=== PATIENT | male | born 1955 | race Caucasian/White ===

== ENCOUNTER → 2019-12-05 15:22 | Outpatient (CLI) | payer MEDICARE, OTHER, SELFPAY ==
--- NOTE | ~2019-12-05 | CT_ITS ---
EXAMINATION: CT shoulder RT wo con DATE: 12/05/2019 15:42 INDICATION: Right shoulder pain. TECHNIQUE: Computed tomography (CT) of the right shoulder was performed without intravenous contrast. Automated exposure control and iterative reconstruction technique were employed. The dose-length pro duct was 326.77 mGy-cm. COMPARISON: None FINDINGS: There is mild emphysema. There is mild scarring at right lung apex. Bone alignment is sp l. No fracture. There is severe osteoarthritis of acromioclavicular joint and mild osteoarthritis of glenohumeral joint. There is mild fatty atrophy of subscapularis muscle belly. Partially visualized a re changes of anterior fusion procedure in cervical spine. IMPRESSION: 1. Polyarticular osteoarthritis. Reviewed, dictated and finalized at location A. ILE DYER
== END ==
PROVIDERS: PCP Emergency Medicine; Visit Provider Emergency Medicine
DX: M19.011 Primary osteoarthritis, right shoulder (principal)
CPT/HCPCS: 73200

== ENCOUNTER 2019-12-22 16:39 | Emergency (ER) | payer MEDICARE, OTHER, SELFPAY ==
[2019-12-22 16:51] VITALS: BP 155/79; PULSE 87; RESP 20; TEMP 37.1; O2SAT 99
--- NOTE | 2019-12-22 16:55 | ED.GENADULT ---
HPI - General Adult General Chief complaint: Upper Respiratory Infection Stated complaint: cough/eye/ear/runny nose Time Seen by Provider: 12/22/19 16:55 Source: patient Mode of arrival: ambulatory Limitations: no limitations History of Present Illness HPI narrative: 64-year-old male patient presents to the [facility] with complaints of cold symptoms. Patient states they have been on again off again for the last couple of weeks and started again yesterday with complaints of runny nose, sneezing and coughing. Patient states that his cough is really only in the morning when he wakes up. Patient denies any fevers, ear pain, sore throat, chest pain, shortness of breath. Patient states he has been taking [id number] Mucinex and cold and flu medication. Patient denies getting a flu shot this year. Patient states that he is an active smoker. Related Data Home Medications Medication Instructions Recorded Confirmed pravastatin 40 mg PO HS 09/18/19 12/22/19 aspirin [Adult Low Dose Aspirin] 81 mg DAILY 12/22/19 12/22/19 Allergies Allergy/AdvReac Type Severity Reaction Status Date / Time morphine AdvReac Severe Itching Verified 10/10/19 13:29 Review of Systems Review of Systems: Narrative: CONSTITUTIONAL: Denies fever, chills, or sweats. EYES: Denies visual changes, redness, or discharge. ENT: Positive clear rhinorrhea, congestion, denies sore throat, or otalgia. CARDIOVASCULAR: Denies chest pain, palpitations, or edema. RESPIRATORY: Positive nonproductive cough denies dyspnea. GASTROINTESTINAL: Denies abdominal pain, nausea, vomiting, or diarrhea. GENITOURINARY: Denies dysuria or hematuria. SKIN: Denies rash or itching. MUSCULOSKELETAL: Denies back pain, joint pain, or myalgia. NEUROLOGIC: Denies headache, numbness, or weakness. PSYCHIATRIC: Denies anxiety or depression. PENDING SALE TO [facility] Past Medical History Medical History Hyperlipidemia RANDY (obstructive sleep apnea) Smoker Tobacco abuse Surgical History Surgical History History of hernia repair [facility] Family History Family History Other Family history of cardiovascular disease Family history of kidney disease Family history of malignant neoplasm Hypertension Social History Social History Smoking status: Current every day smoker Alcohol intake: current Gender identity (if verbalized by the patient): Male Comments At the time of my signature I agree with nursing past medical history, surgical, social, and family history. There is no relevant family history pertinent to the presenting complaint. Exam Narrative: Exam Narrative: GENERAL: Well-appearing, well-nourished, and in no acute distress. HEAD: Normocephalic, atraumatic. No tenderness noted to frontal and maxillary sinuses on palpation. EYES: PERRLA and EOMI. ENT: Nares with erythema and edema noted bilaterally with the left nare swollen shut, no rhinorrhea or epistaxis. Mucous membranes moist. Posterior pharynx with some postnasal drip but no erythema, tonsil enlargement, exudates or lesions present. Bilateral TMs are clear no erythema or foreign bodies in the canal NECK: Supple. No lymphadenopathy CHEST: Clear to auscultation. No respiratory distress. HEART: Regular rate and rhythm. No murmur heard. Normal peripheral pulses. ABDOMEN: Soft, nontender, nondistended, normal active bowel sounds. EXTREMITIES: Normal range of motion. No edema. SKIN: Warm, dry, no rash. NEURO: No focal deficits. Alert and oriented x3. Course Vital Signs Vital signs: Vital Signs Temperature 37.1 C 12/22/19 16:51 Pulse Rate 87 12/22/19 16:51 Respiratory Rate 20 12/22/19 16:51 Blood Pressure 155/79 H 12/22/19 16:51 Pulse Oximetry 99 12/22/19 16:51 Temperature 37.1 C 12/22/19 16:51
== END 2019-12-22 17:04 | disposition home or self-care (01) ==
PROVIDERS: Emergency Provider Nurse Practitioner Family; PCP Emergency Medicine
DX: J06.9 Acute upper respiratory infection, unspecified (principal); J30.9 Allergic rhinitis, unspecified; F17.200 Nicotine dependence, unspecified, uncomplicated; E78.5 Hyperlipidemia, unspecified; G47.30 Sleep apnea, unspecified
CPT/HCPCS: 99213; G0463

== ENCOUNTER 2019-12-29 08:38 | Emergency (ER) | payer MEDICARE, OTHER, SELFPAY ==
[2019-12-29 08:58] VITALS: BP 158/79; PULSE 92; RESP 16; TEMP 36.3; O2SAT 100
[2019-12-29] MEDS: TETANUS,DIPHTHERIA,AC PERTUSSIS ADULT (0.5 ML) BOOSTRIX (09:26)
--- NOTE | 2019-12-29 09:34 | ED.UPPEXIN ---
HPI - Extremity Injury (Upper) General Chief Complaint: Extremity Injury, Upper <Nancy Whittaker PA-C - Last Filed: 12/29/19 10:02> Stated Complaint: Lac R thumb; on Monday <RADHA Elizabeth Last Filed: 12/29/19 10:02> Time Seen by Provider: 12/29/19 09:03 <RADHA Elizabeth Last Filed: 12/29/19 10:02> Source: patient <RADHA Elizabeth Last Filed: 12/29/19 10:02> Mode of arrival: ambulatory <RADHA Elizabeth Last Filed: 12/29/19 10:02> Limitations: no limitations <RADHA Elizabeth Last Filed: 12/29/19 10:02> History of Present Illness HPI narrative: This is a 64-year-old male that presents the emergency department for laceration sustained 2 days ago. Reports he cut his thumb on a corner cutter. Reports since he has been having trouble controlling the bleeding. Reports every time he takes off the bandage the bleeding starts again. He was unable to control bleeding this morning so he came to the ED. He is not up-to-date on tetanus. Denies fever, erythema, or abnormal drainage. <RADHA Elizabeth Last Filed: 12/29/19 10:02> Related Data Home Medications: Home Medications Medication Instructions Recorded Confirmed pravastatin 40 mg PO HS 09/18/19 12/22/19 aspirin [Adult Low Dose Aspirin] 81 mg DAILY 12/22/19 12/22/19 <RADHA Elizabeth Last Filed: 12/29/19 10:02> Allergies/Adverse Reactions: Allergies Allergy/AdvReac Type Severity Reaction Status Date / Time morphine AdvReac Severe Itching Verified 10/10/19 13:29 <RADHA Elizabeth Last Filed: 12/29/19 10:02> Review of Systems Review of Systems: Narrative: CONSTITUTIONAL: Denies fever SKIN: Reports laceration NEUROLOGIC: Denies numbness <RADHA Elizabeth Last Filed: 12/29/19 10:02> All systems reviewed & are unremarkable except as noted in HPI and below <Nancy Whittaker PA-C - Last Filed: 12/29/19 10:02> PMFSH Social History Social History: Social History Smoking status: Current every day smoker Alcohol intake: current Gender identity (if verbalized by the patient): Male <Nancy Whittaker PA-C - Last Filed: 12/29/19 10:02> Exam Narrative: Exam Narrative: GENERAL: Well-appearing, well-nourished, and in no acute distress. HEAD: Normocephalic, atraumatic. EYES: EOMI. EXTREMITIES: Normal range of motion. No edema, erythema or warmth. Right thumb tip with 1.5cm circular area of skin avulsed, no tissue to approximate, slowly oozing blood SKIN: Warm, dry, no rash. NEURO: No focal deficits. Alert and oriented x3. PSYCH: Normal mood and affect <RADHA Elizabeth Last Filed: 12/29/19 10:02> Course Vital Signs Vital signs: Vital Signs Temperature 97.3 F L 12/29/19 08:58 Pulse Rate 92 12/29/19 08:58 Respiratory Rate 16 12/29/19 08:58 Blood Pressure 158/79 H 12/29/19 08:58 Pulse Oximetry 100 12/29/19 08:58 Temperature 97.3 F L 12/29/19 08:58 Pulse Rate 82 12/29/19 10:05 Respiratory Rate 16 12/29/19 10:05 Blood Pressure 136/75 12/29/19 10:05 Pulse Oximetry 98 12/29/19 10:05 <RADHA Elizabeth Last Filed: 12/29/19 10:02> Vital Signs Temperature 97.3 F L 12/29/19 08:58 Pulse Rate 92 12/29/19 08:58 Respiratory Rate 16 12/29/19 08:58 Blood Pressure 158/79 H 12/29/19 08:58 Pulse Oximetry 100 12/29/19 08:58 Temperature 97.3 F L 12/29/19 08:58 Pulse Rate 82 12/29/19 10:05 Respiratory Rate 16 12/29/19 10:05 Blood Pressure 136/75 12/29/19 10:05 Pulse Oximetry 98 12/29/19 10:05 <Jaja Ding MD - Last Filed: 12/29/19 16:07> Procedures Laceration Laceration 1: Date: 12/29/19 <Nancy Whittaker PA-C - Last Filed: 12/29/19 10:02> Time: 09:57 <Nancy Whittaker PA-C - Last Filed: 12/29/19 10:02> Site: hand <Nancy Whittaker PA-C - Last File
[2019-12-29 10:05] VITALS: BP 136/75; PULSE 82; RESP 16; O2SAT 98
--- NOTE | 2020-01-02 07:59 | PC.NURSE ---
LATE ENTRY This note is being entered to document information to the patient's record. The following information was omitted on [12/29/2019, by [David Hernandez]. Per verbal order readback from EDP give 0.5ml of Boostrix Vaccine via IM to Pt.
== END 2019-12-29 10:05 | disposition home or self-care (01) ==
PROVIDERS: Emergency Provider General Practice; PCP Emergency Medicine
DX: S61.011A Laceration without foreign body of right thumb without damage to nail, initial encounter (principal); Z23 Encounter for immunization; Z79.82 Long term (current) use of aspirin; F17.290 Nicotine dependence, other tobacco product, uncomplicated; W27.4XXA Contact with kitchen utensil, initial encounter; Y93.G1 Activity, food preparation and clean up
CPT/HCPCS: 12001; 90471; 90715; 99283

== ENCOUNTER 2020-01-04 10:13 | Emergency (ER) | payer MEDICARE, OTHER, SELFPAY ==
--- NOTE | ~2020-01-04 | XR_ITS ---
EXAMINATION: XR finger 1st RT min 2V DATE: 01/04/2020 11:29 INDICATION: Right thumb laceration. TECHNIQUE: 3 views of right thumb were obtained. COMPARISON: None. FINDINGS: Bone alignment is normal. No fracture. There is mild osteoarthritis of first metacarpophala ngeal joint and moderate osteoarthritis of first interphalangeal joint. No radiopaque foreign body. T here is soft tissue swelling of the thumb. IMPRESSION: 1. Polyarticular osteoarthritis. Reviewed, dictated and finalized at location A. TYPE CUTTER
[2020-01-04 10:24] VITALS: BP 161/85; PULSE 82; RESP 20; TEMP 36.4; O2SAT 100
--- NOTE | 2020-01-04 10:51 | ED.WOUNDLAC ---
HPI - Wound/Laceration General Chief Complaint: Wound/Laceration Stated Complaint: right thumb Time Seen by Provider: 01/04/20 10:51 Source: patient Mode of arrival: ambulatory Limitations: no limitations History of Present Illness HPI narrative: Natan Patel is a 64 male with a hx of h cholesterol, cervical fusion, oartial knee replacements who comes to express care with an infected right thumb. Patient cut thumb a week ago with a mandolin and Surgicel was placed on the wound; patient states that he was not told to remove the Surgicel, from swollen and red. Has movement, denies pain Related Data Home Medications Medication Instructions Recorded Confirmed pravastatin 40 mg PO HS 09/18/19 12/22/19 aspirin [Adult Low Dose Aspirin] 81 mg DAILY 12/22/19 12/22/19 cholecalciferol (vitamin D3) 125 5,000 unit PO DAILY 12/31/19 mcg (5,000 unit) tablet mecobalamin (vitamin B12) 1,000 See Rx Instructions .ROUTE .COMPLEX 12/31/19 mcg chewable tablet vitamin E 400 01/04/20 Allergies Allergy/AdvReac Type Severity Reaction Status Date / Time morphine AdvReac Severe Itching Verified 10/10/19 13:29 Review of Systems Review of Systems: Narrative: CONSTITUTIONAL: Denies fever, chills, sweats. EYES: Denies visual changes, redness, discharge. ENT: Denies rhinorrhea, congestion, sore throat, otalgia. CARDIOVASCULAR: Denies chest pain, palpitations, edema. RESPIRATORY: Denies dyspnea, wheezing, cough GASTROINTESTINAL: Denies abdominal pain, nausea, vomiting, diarrhea. GENITOURINARY: Denies dysuria, hematuria, abnormal discharge SKIN: Denies rash or itching. Red swollen right thumb NEUROLOGIC: Denies numbness, or focal weakness. PSYCHIATRIC: Denies anxiety or depression. [facility] Past Medical History Medical History Hyperlipidemia RANDY (obstructive sleep apnea) Smoker Tobacco abuse Surgical History Surgical History History of hernia repair [facility] Family History Family History Other Family history of cardiovascular disease Family history of kidney disease Family history of malignant neoplasm Hypertension Social History Social History Smoking status: Current every day smoker Alcohol intake: current Gender identity (if verbalized by the patient): Male Comments At time of signature, I agree with nursing past medical, surgical, social and family history. There is no relevant family history pertinent to the presenting complaint. Exam Narrative: Exam Narrative: GENERAL: This is a well-nourished, well-developed patient, in no apparent distress. HEAD: normocephalic, atraumatic. EYES: Sclera clear/white. Vision is grossly intact. EARS: External ears normal, auditory canals clear and without drainage, TMs normal without perforation. Hearing grossly intact. NOSE: External nose normal with no obvious nasal discharge, nares without redness, no rhinorrhea. THROAT: Mucous membranes moist, posterior pharynx clear. NECK: Neck supple, non-tender without lymphadenopathy, masses or thyromegaly. CARDIOVASCULAR: Regular rate and rhythm without murmurs, gallops, or rubs. RESPIRATORY: Clear to auscultation. Breath sounds equal bilaterally. No wheezes, rales, or rhonchi. GASTROINTESTINAL: Abdomen soft, non-tender, nondistended. Bowel sounds are active. No hepato-splenomegaly, or palpable masses. No guarding. SKIN: warm, intact with no suspicious lesions or rash, good texture and turgor. Right thumb erythema, swelling, range of motion good, avulsion lateral side of skin, subQ tissue NEURO: awake, alert, and oriented to person, place and time. There were no obvious focal neurologic abnormalities. Steady gait EXTREMITIES: Normal range of motion. BACK: Nontender without deformity . Course Course Emergency Course:
== END 2020-01-04 12:29 | disposition home or self-care (01) ==
PROVIDERS: Emergency Provider Nurse Practitioner
DX: S61.011D Laceration without foreign body of right thumb without damage to nail, subsequent encounter (principal); W27.8XXD Contact with other nonpowered hand tool, subsequent encounter; E78.00 Pure hypercholesterolemia, unspecified; E78.5 Hyperlipidemia, unspecified; G47.33 Obstructive sleep apnea (adult) (pediatric); Z96.653 Presence of artificial knee joint, bilateral; F17.200 Nicotine dependence, unspecified, uncomplicated
CPT/HCPCS: 73140; 99213; G0463

== ENCOUNTER 2024-10-26 08:24 | Emergency (ER) | payer MEDICARE, SELFPAY ==
[2024-10-26 08:49] VITALS: BP 152/67; PULSE 85; RESP 18; TEMP 37.2; O2SAT 97
--- NOTE | 2024-10-26 09:25 | ED.URI ---
HPI - URI/Sore Throat General Chief Complaint: Upper Respiratory Infection Stated Complaint: cold Source: patient Mode of arrival: ambulatory Limitations: no limitations History of Present Illness HPI Narrative: 69-year-old male presents to [facility] complains of head congestion, intermittent diarrhea, dry cough and sinus pressure for the past 3-4 days. Patient reports that symptoms became worse yesterday. Patient has been taking [id number] Sudafed and Robitussin with little relief. Patient reports that his currently similar symptoms. Patient is a smoker. Patient denies recent travel. MD elicited complaint: cough and other (Head congestion) Onset (ago): day(s) (3-4) Severity: mild Able to tolerate fluids by mouth: Yes Context: sick contacts Treatments prior to arrival: cold medicine Related Data Home Medications ?Medication ?Instructions ?Recorded ?Confirmed ?Last Taken ?Type aspirin 81 mg tablet,delayed 81 mg DAILY 12/22/19 12/22/19 Unknown History release (Adult Low Dose Aspirin) cholecalciferol (vitamin D3) 125 5,000 unit PO DAILY 12/31/19 Unknown History mcg (5,000 unit) tablet mecobalamin (vitamin B12) 1,000 See Rx Instructions .Route .COMPLEX 12/31/19 Unknown History mcg chewable tablet vitamin E 400 01/04/20 Unknown History ascorbate calcium (vitamin C) 814 mg PO 10/26/24 Unknown History mg/gram oral powder (Vitamin C (ascorbate calcium)) atorvastatin 40 mg tablet mg 10/26/24 Unknown History cholecalciferol (vitamin D3) 50 50 mcg PO DAILY 10/26/24 10/26/24 Unknown History mcg (2,000 unit) capsule metoprolol succinate 25 mg mg PO 10/26/24 Unknown History tablet,extended release 24 hr tamsulosin 0.4 mg capsule mg PO 10/26/24 Unknown History zinc 15 mg tablet 15 mg PO DAILY 10/26/24 10/26/24 Unknown History Allergies Allergy/AdvReac Type Severity Reaction Status Date / Time morphine AdvReac Severe Itching Verified 10/26/24 08:59 Review of Systems Constitutional: Constitutional: Denies chills, Denies fatigue, Denies fever(s) and Denies weakness ENT: Denies vertigo, Denies dizziness, Denies epistaxis, Reports nasal congestion and Reports sore throat Respiratory: Respiratory: Reports cough, Denies dyspnea and Denies wheezing Gastrointestinal: Gastrointestinal: Denies diarrhea, Denies nausea and Denies vomiting Integumentary/Breasts: Skin/Breast: Denies erythema and Denies rash Neurologic: Denies headache(s) [facility] Past Medical History Medical History (Updated 10/26/24 @ 09:53 by Clarice Santiago APRN) Smoker Tobacco abuse Hyperlipidemia RANDY (obstructive sleep apnea) Surgical History Surgical History History of hernia repair [facility] Family History Family History Other Family history of cardiovascular disease Family history of kidney disease Family history of malignant neoplasm Hypertension Social History Social History Smoking status: Current every day smoker Alcohol intake: current Gender identity (if verbalized by the patient): Male Comments At time of signature, I agree with nursing past medical, surgical, social and family history. There is no relevant family history pertinent to the presenting complaint. Exam Const: General: healthy appearing and no acute distress Nutritional Appearance: well nourished Orientation/consciousness: patient oriented x3 Limitations: no limitations HENMT: Head: normal to inspection Ears: external ears normal, TM's normal bilaterally and EAC's normal Face/Nose/Sinus: Normal external nose present Mouth: Yes Normal oral and palatal mucosa present and Yes moist mucous membranes Throat: uvula midline Other: Moderate nasal congestion noted, moderate erythema noted to oropharynx Eyes: Conjunctivae: conjunctivae normal Direct Ophthalmoscopy: no photophobia Neck: Neck: normal visual inspection Resp: Effort & Inspection: normal respiratory effort Auscultation: clear to auscultation bilaterally, no crackles, no rales and no rhonchi Cardio: Rate: regular rate Rhythm: regular rhythm Heart sounds: no murmurs Skin: General skin exam: normal color Rashes: no rashes Neuro: General: patient oriented x3 Speech: normal speech Gait exam (Neuro): Normal gait present Extrem: General: normal to inspection Psych: Affect: normal affect Attitude: cooperative Course Course Level of Care: Express Care Visit Vital Signs Vital signs: Vital Signs Temperature 37.2 C 10/26/24 08:49 Pulse Rate 85 10/26/24 08:49 Respiratory Rate 18 10/26/24 08:49 Blood Pressure 152/67 H 10/26/24 08:49 Pulse Oximetry 97 10/26/24 08:49 Oxygen Delivery Room Air 10/26/24 08:49 Temperature 37.2 C 10/26/24 08:49 Pulse Rate 85 10/26/24 08:49 Respiratory Rate 18 10/26/24 08:49 Blood Pressure 152/67 H 10/26/24 08:49 Pulse Oximetry 97 10/26/24 08:49 Oxygen Delivery Room Air 10/26/24 08:49 MDM - URI/Sore Throat MDM Narrative Medical decision making narrative: Discussed positive COVID results with patient. Patient understands that he is to self quarantine for 5 days from onset of symptoms for CDC recommendations. Instructed patient to rest, increase fluids and alternate Motrin and Tylenol as needed. Educated patient proceed to emergency room if symptoms worsen Differential Diagnosis Differential diagnosis: Likely otitis media, bronchitis and pharyngitis Lab Data Labs: Lab Results 10/26/24 Range/Units 09:49 POC Influenza A Ag Negative (Negative) POC Influenza B Ag Negative (Negative) POC SARS CoV-2 Ag Positive (Negative) POC Grp A Strep Screen Negative (Negative) Critical Care Time Critical Care Time Critical Care Time: No Discharge Plan Discharge Clinical Impression: COVID-19 Patient Disposition: Home, Self-Care Condition: Stable Instructions: COVID-19 (Coronavirus Disease 2019) (ED) Additional Instructions: Rest Increase fluids Take Claritin daily Take benzonatate as needed for cough Follow-up with primary care provider if symptoms are improved It is recommended that you quarantine for 5 days from onset of symptoms Proceed to the emergency room if symptoms worsen Patient Language: Upper Sorbian Prescriptions: New loratadine [Claritin] 10 mg tablet 10 mg PO DAILY Qty: 30 0RF benzonatate 100 mg capsule 100 mg PO BID PRN (Reason: cough) Qty: 20 0RF No Action aspirin [Adult Low Dose Aspirin] 81 mg Tablet,Delayed Release (Dr/Ec) 81 mg DAILY fluticasone propionate [Flonase Allergy Relief] 50 mcg/actuation spray,suspension 1 spray NASAL BID Qty: 15.8 0RF Rx Instructions: administer into each nostril vitamin E 400 metoprolol succinate 25 mg tablet extended release 24 hr PO zinc 15 mg tablet 15 mg PO DAILY Vitamin C (ascorbate calcium) 814 mg/gram powder PO cholecalciferol (vitamin D3) 50 mcg (2,000 unit) capsule 50 mcg PO DAILY atorvastatin 40 mg tablet tamsulosin 0.4 mg capsule PO mecobalamin (vitamin B12) 1,000 mcg tablet,chewable See Rx Instructions .ROUTE .COMPLEX Rx Instructions: TK 1 T PO ONCE DAILY; cholecalciferol (vitamin D3) 125 mcg (5,000 unit) tablet 5,000 unit PO DAILY Follow-up/Referrals: Ilir Nelson [Other] Time of Disposition: 09:54
[2024-10-26 09:51] LABS: EDCOVIDSCREEN Positive (Negative); EDINFLUASCREEN Negative (Negative); EDINFLUBSCREEN Negative (Negative); EDSTREPNEGPOS1 Negative (Negative)
--- OUTSIDE RECORDS SUMMARY | 2024-11-02 07:27 | XMS_ITS | Encounter Summary ---
Author Organization [facility] Address [address] [place] [address] Care Team Providers Care First Crusher Name Role Phone Yosvany Gonsalez MD Primary Care Provider [phone] Reason for Visit * Reason Onset Date Comments Results 02/22/2019 Encounter Details Date Type Department Care Team (Late st Contact Info) Description 02/22/2019 Telephone [facility] - Family Medicine [address] [phone] Yosvany Gonsalez MD [address] [place] [phone] Results Social History Tobacco Use Types Packs/Day Years Used Date Smoking Tobacco: Former Cigarettes Q uit: 08/07/2018 Smokeless Tobacco: Never Alcohol Use Standard Drinks/Week Comments Yes 7 (1 standard drink = 0.6 oz pur e alcohol) weekly 7-8 Sex and Gender Information Value Date Recorded Sex Assigned at Not on file Gender Identity Not on file Sexual Orientation Not on file documented as of this encounter Functional Status Functional Status Response Date of Assess ment Is person deaf or have serious hearing difficult y? No 10/02/2018 Is person blind or have serious difficulty seein g? No 10/02/2018 Does person have serious dif ficulty walking/climbing stairs? No 10/02/2018 Does person have difficulty dressing/bathing? No 10/02/2018 Does person have difficulty doing errands alone? No 10/02/2018 Cognitive Status Response Date of Assessm ent Does person have difficulty concentrating/remembering/making decisions? No 10/02/2018 documented as of this encounter Miscellaneous Notes * Telephone Encounter - Cindy Mobley LPN - 02/26/2019 4:31 PM CDT Patient presented to office results reviewed * Telephone Encounter - Cindy Mobley LPN - 02/26/2019 9:11 AM CDT Attempted calling no answer, vm left asking for call back * Telephone Encounter - Yosvany Gonsalez MD - 02/22/2019 3:57 PM CDT B12 is running low, start OTC supplements, all other medications stay the same, will review more atnext appointment. * Telephone Encounter - Maria Fernanda Solis LPN - 02/22/2019 3:52 PM CDT Please advise of lab results * Telephone Encounter - Olga Lidia Giles - 02/22/2019 3:45 PM CDT Please call patient. Had his labs done on 02/15/19. He thought his appointment was on 02/22/19. His appointment is in May of 2019. He wants to go over his labs. documented in this encounter Plan of Treatment Not on file documented as of this encounter Visit Diagnoses Not on filedocumented in this encounter Care Teams First Crusher Relationship Specialty Start Date End Date Yosvany Gonsalez MD [address] [place] [phone] PCP - General Internal Medicine 04/08/13 09/03/19 documented as of this encounter
--- OUTSIDE RECORDS SUMMARY | 2024-11-02 07:27 | XMS_ITS | Clinical Summary ---
Author Organization [facility] Address [address] [place] [address] Care Team Providers Care [employer] Worker Name Role Phone Addison Joy MD Primary Care Provider [phone] [facility],non-owned Affiliates and Associated Physician Practices is amultiple site organization consisting of ambulatory clinics and hospital sitesin [place], [place], [place] and [place]. This disclosure is being madepursuant to the Care Everywhere program and may not contain all information available regarding this patient. Last updated 18.[facility] Allergies Active Allergy Reactions Criticality Noted Date Comments Morphine Itching 09/09/2016 Medications * Be aware that medications may not be up to date on this document. Alwaysverify current medications with the patient. Medication Sig Dispensed Refills Start Date End Date Status Cholecalciferol (VITAMIN D) 2000 UNITS CAPS capsule Take 2,000 Units by mouth once daily Active vitamin E (TOCOPHERYL) 400 UNIT tablet Take 400 Units by mouth once daily Active aspirin (ASPIRIN) 81 MG chew tablet Take 81 mg by mouth once daily Active [place]-3 Fatty Acids (FISH OIL) 1000 MG capsule Take by mouth once daily Active oxyCODONE-acetamin ophen (PERCOCET) 7.5-325 MG tablet Take 1-2 tablets by mouth every 4 hours as needed for Pain (for moderate to severe pain) 120 tablet 10/02/2018 Active Additional Information Patient not taking.Reported on 07/26/2019 pantoprazole EC (PROTONIX) 40 MG tablet Take 1 tablet by mouth once daily 90 tablet 3 10/04/2018 Active pravastatin (PRAVACHOL) 80 MG tablet Take 1 tablet by mouth at bedtime 90 tablet 3 11/09/2018 Active predniSONE (DELTASONE) 10 MG tablet Take 1 tablet by mouth as directed 4 tab day1, then3 tabs for 3 days, then 2 tabs for 3 days , then1 tab for 3 days 22 tablet 07/26/2019 Active benzonatate (TESSALON) 100 MG capsule Take 1 capsule by mouth 3 times daily as needed for Cough 30 capsule 07/26/2019 Active Active Problems Problem Noted Date Diagnosed Date Cervical stenosis of spinal canal 10/02/2018 H/O nicotine dependence 09/21/2018 Pre-operative clearance 08/29/2016 RANDY on CPAP 10/16/2015 Screen for colon cancer 12/05/2014 Annual physical exam 10/14/2013 Hyperlipidemia 04/15/2013 Special screening for malignant neoplasm of pros [place] 04/15/2013 High risk medications (not anticoagulants) long- term use 04/15/2013 Resolved Problems Problem Noted Date Diagnosed Date Resolved Date Acute tracheobronchitis 09/09/201605/07 Primary osteoarthritis of left knee 08/29/2016 06/03/2019 Chronic gastritis 12/07/2015 06/03/2019 Chronic cough 10/15/2014 06/03/2019 Tendonitis of shoulder, right 04/15/2013 06/03/2019 Immunizations Name Administration Dates Next Due FLU VACCINE TRI IIV3 SPLIT PF IM (FLUVIRIN) 11/2013 INFLUENZA VACCINE, QUADR. (F LUZONE; FLULAVAL; FLUARIX; AFLURIA QUADRIVALENT; 6MO+), 0.5 ML (IIV4) 10/03/2018,10/19/2016,10/16/2015 Pneumococcal Pcv13 Conj 10/20/2016,10/16/2016 Family History Medical History Relation Name Comments Cancer - Other Father throat cancer Heart Disease Father Hypertension Mother Relation Name Status Comments Father Mother Alive Social History Tobacco Use Types Packs/Day Years Used Date Smoking Tobacco: Every Day Cigarettes Last attempted to quit: 08/07/2018 Smokeless Tobacco: Never Tobacco Cessation:Counseling Given: Yes Alcohol Use Standard Drinks/Week Comments Yes 7 (1 standard drink = 0.6 oz pur e alcohol) weekly 7-8 Sex and Gender Information Value Date Recorded Sex Assigned at Not on file Gender Identity Not on file Sexual Orientation Not on file Last Filed Vital Signs Vital Sign Reading Time Taken Comments Blood Pressure 134/72 07/26/2019 4:27 PM CDT Pulse 84 07/26/2019 4:27 PM CDT Temperature 37.3 ??C (99.2 ??F) 07/26/2019 4:27 PM CD T Respiratory Rate 20 07/26/2019 4:27 PM CDT Oxygen Saturation 97% 07/26/2019 4:27 PM CDT Inhaled Oxygen Concentration - - Weight 73 kg (161 lb) 07/26/2019 4:27 PM CDT Height 170.2 cm (5' 7 ) 06/03/2019 4:30 PM CDT Body Mass Index 25.22 06/03/2019 4:30 PM CDT Plan of Treatment Health Maintenance Due Date Last Done Comments COLOGUARD (AGES 45-75) - COLON CA SCREENING [address] COLONOGRAPHY - COLON CA SCREENING 1955 FIT - COLON CA SCREENING 1955 FLEX SIG - COLON CA SCREENING 1955 HEPATITIS C SCREENING 07/13/1972 DTAP/TDAP/TD VACCINES (1 - Tdap) 1973 ZOSTER VACCINE (1 of 2) 2004 PNEUMOCOCCAL VACCINE 65+ (2 of 2 - PPSV23 or PCV20) 12/15/2016 10/20/2016, 10/16/2016 AAA SCREENING 2019 SCREENING FOR DIABETES 02/15/2022 9, 02/15/2019, 11/27/2018, Additional history exists DEPRESSION SCREENING 11/06/2023 COVID-19 VACCINE ( season) 2024 INFLUENZA VACCINE (#1) 2024 8, 10/19/2016, 10/16/2015, Additional history exists COLONOSCOPY - COLON CA SCREENING 02/04/2025 02/04/2015 Colorectal Cancer Screening 02/04/2025 Respiratory Syncytial Virus (RSV) Vaccine Pt: or over 60 yrs (1 - 1-dose 75+ series) 2029 HEPATITIS B VACCINE Aged Out No longe r eligible based on patient's age to complete this topic HIB VACCINE Aged Out No longer eligi ble based on patient's age to complete this topic HPV VACCINE Aged Out No longer eligi ble based on patient's age to complete this topic MENINGOCOCCAL VACCINE Aged Out No mary pepito eligible based on patient's age to complete this topic Medical Devices Implanted Type Area Global Regulatory Lead Device Identifier Shelf Expiration Date Model / Serial / Lot Lukas Bone Void .5ml Dbx Algrf Frzdr Ptty - [id number] Implanted:Qty : 1 on 10/02/2018 by Chris Kay MD at [facility] Cervical Musculoskeletal Transplant Foundati 05/25/2020 [id number] / [id number] / Spcr Algrf [id number] Ccs Prll Spne Ayo - [id number] Implanted:Qty : 1 on 10/02/2018 by Chris Kay MD at [facility] Cervical Musculoskeletal Transplant Foundati 06/14/2021 [id number] / [id number] / Description:C6-C7 Graft Bone Vivigen Ayo Cnc Dmnr 1cc - [id number] Implanted:Qty : 1 on 10/02/2018 by Chris Kay MD at [facility] Cervical Lifenet 08/07/2019 BL-[id number] 01 / [id number] / Plate Bnt Grv Prebnt [id number] 1 Lvl 1 - [id number] Implanted:Qty : 1 on 10/02/2018 by Chris Kay MD at [facility] Cervical Synthes Spine 450.552 / [id number] / Description:C6-7 Screw 4.5mm 18mm Spne Crv Ant Slf-Tap Implanted:Qty : 4 on 10/02/2018 by Chris Kay MD at [facility] Cervical Synthes Spine [id number] / / Description:C6-7 Spcr Algrf [id number] Prll Spne Crv Ayo - [id number] Implanted:Qty : 1 on 10/02/2018 by Chris Kay MD at [facility] Cervical Musculoskeletal Transplant Foundati 02/07/2021 [id number] / [id number] / Screw 4.5mm 16mm Spne Crv Ant Slf-Tap Implanted:Qty : 4 on 10/02/2018 by Chris Kay MD at [facility] Cervical Synthes Spine 6 / / Description:C3-4 Vectra Plate Implanted:Qty : 1 on 10/02/2018 by Chris Kay MD at [facility] Chris Spine Cervical 4 / [id number] / Procedures Procedure Name Priority Date/Time Associated Diagnosis Comments COMPREHENSIVE METABOLIC PANEL 02/15/2019 7:51 AM CDT from Last 3 Months or Most Recently Relevant to Health Maintenance Results * COMPREHENSIVE METABOLIC PANEL (02/15/2019 7:51 AM CDT) Glucose 95 65 - 99 mg/dL [facility] Comment: ? Fasting reference interval BUN 14 7 - 25 mg/dL [facility] Creatinine 0.74 0.70 - 1.25 mg/dL [facility] Comment: For patients >49 years of age, the reference limit for Creatinine is approximately 13% higher for people identified as -Tajik. eGFR by MDRD 97 > OR = 60 mL/min/1 .73m2 [facility] eGFR by MDRD 113 > OR = 60 mL/min/1 .73m2 [facility] BUN/Creatinine Ratio NOT APPLICABLE 6 - 22 (calc) [facility] Sodium 142 135 - 146 mmol/L [facility] Potassium 5.0 3.5 - 5.3 mmol/L [facility] Chloride 107 98 - 110 mmol/L [facility] CO2 29 20 - 32 mmol/L [facility] Calcium 9.4 8.6 - 10.3 mg/dL [facility] Protein Total 7.1 6.1 - 8.1 g/dL [facility] Albumin 4.5 3.6 - 5.1 g/dL [facility] Globulin Total 2.6 1.9 - 3.7 g/dL (calc) [facility] Albumin/Globulin Ratio 1.7 1.0 - 2.5 (calc) [facility] Bilirubin Total 0.7 0.2 - 1.2 mg/dL [facility] Alkaline Phosphatase 41 40 - 115 U/L [facility] AST 15 10 - 35 U/L [facility] ALT 13 9 - 46 U/L [facility] Comment: Test Performed at: [facility] [id number] ??[id number] MICHEL LEO DO,MPH 02/15/2019 7:51 AM CDT 02/15/2019 7:52 AM CDT Yosvany Gonsalez MD LAB - CHEMISTRY [facility] [address] [place] [address] from Last 3 Months or Most Recently Relevant to Health Maintenance Advance Directives * Full Code (Latest Code Status on File) Date Activated Date Inactivated Comments 10/02/2018 7:29 PM 10/03/2018 4:57 PM Care Teams [employer] Worker Relationship Specialty Start Date End Date Addison Joy MD [address] [id number] PCP - General Internal Medicine 09/04/19
--- OUTSIDE RECORDS SUMMARY | 2024-11-02 07:27 | XMS_ITS | Encounter Summary ---
Author Organization [facility] Address [address] [place] [address] Care Team Providers Care Fuel Storage Technician Name Role Phone Yosvany Gonsalez MD Primary Care Provider [phone] Reason for Visit * Reason Comments Comprehensive Chronic Disease Evaluation Medication Check Hyperlipidemia lab results Encounter Details Date Type Department Care Team (Late st Contact Info) Description 12/03/2018 4:15 PM TIMING INSPECTOR Office Visit [facility] Medical [facility] - Family Medicine [address], [facility] [place] [address] Yosvany Gonsalez MD [address] [place] [address] [place] [address] Annual physical exam (Primary Dx); Mixed hyperlipidemia; Special screening for malignant neoplasm of prostate; RANDY on CPAP; H/O nicotine dependence Social History Tobacco Use Types Packs/Day Years Used Date Smoking Tobacco: Former Cigarettes Q uit: 08/07/2018 Smokeless Tobacco: Never Tobacco Cessation:Counseling Given: Yes Alcohol Use Standard Drinks/Week Comments Yes 7 (1 standard drink = 0.6 oz pur e alcohol) weekly 7-8 Sex and Gender Information Value Date Recorded Sex Assigned at Not on file Gender Identity Not on file Sexual Orientation Not on file documented as of this encounter Last Filed Vital Signs Vital Sign Reading Time Taken Comments Blood Pressure 132/76 12/03/2018 4:29 PM TIMING INSPECTOR Pulse 91 12/03/2018 4:29 PM TIMING INSPECTOR Temperature 36.7 ??C (98 ??F) 12/03/2018 4:29 PM TIMING INSPECTOR Respiratory Rate 16 12/03/2018 4:29 PM TIMING INSPECTOR Oxygen Saturation 95% 12/03/2018 4:29 PM TIMING INSPECTOR Inhaled Oxygen Concentration - - Weight 76.7 kg (169 lb) 12/03/2018 4:29 PM TIMING INSPECTOR Height 170.2 cm (5' 7 ) 12/03/2018 4:29 PM TIMING INSPECTOR Body Mass Index 26.47 12/03/2018 4:29 PM TIMING INSPECTOR documented in this encounter Functional Status Functional Status Response [...] No 10/02/2018 documented as of this encounter Progress Notes * Yosvany Gonsalez MD - 12/03/2018 6:06 PM CST Date: 12/03/2018 Pt Name: Natan Patel : 1955 AGE: 63 y.o. SEX: male SUBJECTIVE: Chief Complaint Patient presents with ??? Comprehensive Chronic Disease Evaluation ??? Medication Check ??? Hyperlipidemia lab results History of Present Illness: Patient is here for his annual physical exam Hyperlipidemia watching diet currently on pravastatin good compliance with no complaints. Acid reflux on pantoprazole watching lifestyle no recent flare-ups. Chronic DJD on Percocet as needed pain control adequate home [id number] exercises helping. Heart rate and blood pressure stable no chest pain chest tightness, no palpitations or dizziness reported. NO SIGNIFICANT CHANGE IN WEIGHT, NO RECENT ISSUES WITH FEVER, CHILLS. ALL MEDICATIONS WITH INSTRUCTIONS REVIEWED AT TODAY'S VISIT Current Outpatient Prescriptions Medication Sig Dispense Refill ??? aspirin (ASPIRIN) 81 MG chew tablet Take 81 mg by mouth once daily ??? Cholecalciferol (VITAMIN D) 2000 UNITS CAPS capsule Take 2,000 Units by mouth once daily ??? [place]-3 Fatty Acids (FISH OIL) 1000 MG capsule Take by mouth once daily ??? oxyCODONE-acetaminophen (PERCOCET) 7.5-325 MG tablet Take 1-2 tablets by mouth every 4 hours asneeded for Pain (for moderate to severe pain) (Patient not taking: Reported on 12/03/2018) 120 tablet 0 ??? pantoprazole EC (PROTONIX) 40 MG tablet Take 1 tablet by mouth once daily 90 tablet 3 ??? pravastatin (PRAVACHOL) 80 MG tablet Take 1 tablet by mouth at bedtime 90 tablet 3 ??? vitamin E (TOCOPHERYL) 400 UNIT tablet Take 400 Units by mouth once daily No current facility-administered medications for this visit. PATIENT'S ALLERGY, PM,FSH REVIEWED AND EXTRAPOLATED FROM EPIC Allergies Allergen Reactions ??? Morphine Itching Past Medical History: Diagnosis Date ??? Allergy ??? Chronic airway obstruction ??? Encounter for screening for malignant neoplasm of prostate ??? Esophageal reflux ??? Sleep apnea cpap Past Surgical History: Procedure Laterality Date ??? Cervical Fusion 10/02/2018 DISCECTOMY WITH FUSION ANTERIOR CERVICAL (ACDF) MULTI-LEVEL C3-4, C6-7 ??? COLONOSCOPY 02/04/15 3 polyps removed ??? HERNIA REPAIR, INGUINAL 02/2012 left ??? Knee Replacement Bilateral ??? OTHER SURGERY dental extraction Social History Social History ??? Marital status: Spouse name: N/A ??? Number of children: 1 ??? Years of education: 12 Occupational History ??? [employer] Social History Main Topics ??? Smoking status: Former Smoker Packs/day: 0.50 Types: Cigarettes Quit date: 08/07/2018 ??? Smokeless tobacco: Never Used ??? Alcohol use 4.2 - 4.8 oz/week 7 - 8 Cans of beer per week Comment: weekly 7-8 ??? Drug use: No ??? Sexual activity: Not on file Other Topics Concern ??? Not on file Social History Narrative ROS: A comprehensive ROS done, only pertinent positives recorded. HEENT: none, minor sinus drainage, seasonal CV: no obvious problems, denies cp RS: breathing at baseline ABD: diet stable EXT: joint pains stable, denies leg swelling NEURO: no compliants : no complaints PSYCH: stable, more anxious than usual SKIN: Normal OBJECTIVE: WDWN, Alert, No Distress BP 132/76 (BP SITE: LEFT ARM, BP POSITION: SITTING, BP CUFF SIZE: 11) Pulse 91 Temp 98 ??F (36.7 ??C) (Oral) Resp 16 Ht 1.702 m (5' 7 ) Wt 76.7 kg (169 lb) SpO2 95% BMI 26.47 kg/m2 PHYSICAL EXAM: BP 132/76 (BP SITE: LEFT ARM, BP POSITION: SITTING, BP CUFF SIZE: 11) Pulse 91 Temp 98 ??F (36.7 ??C) (Oral) Resp 16 Ht 1.702 m (5' 7 ) Wt 76.7 kg (169 lb) SpO2 95% BMI 26.47 kg/m2 General appearance: alert, cooperative, no distress Head: Normocephalic, without trauma Eyes: sclera and conjunctiva clear, EOMI and PERRLA, lids normal Ears: hearing intact to voice Nose: nares open; no septal deviation is noted Throat: no mucous membrane abnormalities Neck: range of motion is intact, no masses, thyroid not enlarged, no adenopathy Nodes: no cervical, axillary or inguinal adenopathy Back: unchanged, no tenderness Chest: no tenderness Lungs: breath sounds normal and symmetric; no rales or wheezes Heart: regular rhythm, normal S1 and S2, without murmurs, gallops or rubs Abdomen: soft without mass, non-tender, No hepatosplenomegaly with normal bowel sounds Extremities: no clubbing, cyanosis or edema Circulation: Carotid and pedal pulses are intact and symmetrical, no carotid bruits Joints: chronic DJD, unchanged, ranges of motion preserved. No active inflammation, effusion noted. Skin: Warm, dry, good turgor. no rashes in visible areas. No other abnormalities are noted Neurologic: mental status normal; speech, language, affect at baseline. Alert and oriented X 3; Cranial nerves II - XII are grossly intact, motor , sensory, cerebellar exam at baseline, no apparent deficits Recent Results (from the past 1344 hour(s)) LIPID PROFILE Collection Time: 11/27/18 7:39 AM Result Value Ref Range Cholesterol 204 (H) <200 mg/dL HDL Cholesterol 56 >40 mg/dL Triglycerides 105 <150 mg/dL LDL Calculated 127 (H) mg/dL (calc) CHOL/HDLC RATIO 3.6 <5.0 (calc) Non HDL Cholesterol 148 (H) <130 mg/dL (calc) URIC ACID BLOOD Collection Time: 11/27/18 7:39 AM Result Value Ref Range Uric Acid 6.4 4.0 - 8.0 mg/dL TSH Collection Time: 11/27/18 7:39 AM Result Value Ref Range TSH 2.25 0.40 - 4.50 mIU/L COMPREHENSIVE METABOLIC PANEL Collection Time: 11/27/18 7:45 AM Result Value Ref Range Glucose 96 65 - 99 mg/dL BUN 17 7 - 25 mg/dL Creatinine 0.87 0.70 - 1.25 mg/dL eGFR by MDRD 91 > OR = 60 mL/min/1.73m2 eGFR by MDRD 106 > OR = 60 mL/min/1.73m2 BUN/Creatinine Ratio NOT APPLICABLE 6 (calc) Sodium 142 135 - 146 mmol/L Potassium 4.4 3.5 - 5.3 mmol/L Chloride 106 98 - 110 mmol/L CO2 29 20 - 32 mmol/L Calcium 9.3 8.6 - 10.3 mg/dL Protein Total 7.5 6.1 - 8.1 g/dL Albumin 4.6 3.6 - 5.1 g/dL Globulin Total 2.9 1.9 - 3.7 g/dL (calc) Albumin/Globulin Ratio 1.6 1.0 - 2.5 (calc) Bilirubin Total 0.7 0.2 - 1.2 mg/dL Alkaline Phosphatase 46 40 - 115 U/L AST 15 10 - 35 U/L ALT 17 9 - 46 U/L CBC WITH DIFFERENTIAL Collection Time: 11/27/18 7:45 AM Result Value Ref Range White Blood Cell Count 4.7 3.8 - 10.8 Thousand/uL RBC 4.48 4.20 - 5.80 Million/uL Hemoglobin 14.1 13.2 - 17.1 g/dL Hematocrit 41.3 38.5 - 50.0 % MCV 92.2 80.0 - 100.0 fL MCH 31.5 27.0 - 33.0 pg MCHC 34.1 32.0 - 36.0 g/dL RDW 12.6 11.0 - 15.0 % Platelet Count 265 140 - 400 Thousand/uL MPV 10.9 7.5 - 12.5 fL Neutrophil Absolute 2374 1500 - 7800 cells/uL Lymphocytes Absolute 1697 850 - 3900 cells/uL Absolute Monocytes 545 200 - 950 cells/uL Eosinophils Absolute 42 15 - 500 cells/uL Basophils Absolute 42 0 - 200 cells/uL Granulocytes % 50.5 % Lymphocytes % 36.1 % Monocytes % 11.6 % Eosinophils % 0.9 % Basophils % 0.9 % ASSESSMENT: ICD-10-CM 1. Annual physical exam Z00.00 CBC WITH DIFFERENTIAL COMPREHENSIVE METABOLIC PANEL LIPID PROFILE TSH HEMOGLOBIN A1C PROSTATE SPECIFIC ANTIGEN SCREEN URIC ACID BLOOD VITAMIN B12 2. Mixed hyperlipidemia E78.2 3. Special screening for malignant neoplasm of prostate Z12.5 4. RANDY on CPAP G47.33 Z99.89 5. H/O nicotine dependence Z87.891 PLAN: Orders Placed This Encounter ??? CBC WITH DIFFERENTIAL ??? COMPREHENSIVE METABOLIC PANEL ??? LIPID PROFILE ??? TSH ??? HEMOGLOBIN A1C ??? PROSTATE SPECIFIC ANTIGEN SCREEN ??? URIC ACID BLOOD ??? VITAMIN B12 Return in about 6 months (around 06/02/2019). RECENT COMPREHENSIVE SET OF LABS INCLUDING CBC, CMP, FBS ETC WERE ALL REVIEWED, DEVIATION FROM NORMAL NOTED, QUESTIONS, CONCERNS WERE ADDRESSED . USE OF CURRENT PRESCRIPTION MEDICATIONS, IT'S MANAGEMENT AND IMPACT ON PATIENT'S HEALTH DISCUSSED. Yosvany Gonsalez MD NG INSPECTOR documented in this encounter Plan of Treatment Scheduled Orders Name Type Priority Associated Diagnoses Orde r Schedule CBC WITH DIFFERENTIAL Lab Routine Annual physical exam Ordered: 12/03/2018 COMPREHENSIVE METABOLIC PANEL Lab Routine Annual physical exam Ordered: 12/03/2018 LIPID PROFILE Lab Routine Annual physical exam Ordered: 12/03/2018 TSH Lab Routine Annual physical exam Ordered: 12/03/2018 HEMOGLOBIN A1C Lab Routine Annual physical exam Ordered: 12/03/2018 PROSTATE SPECIFIC ANTIGEN SCREEN Lab Routine Annual physical exam Ordered: 12/03/2018 URIC ACID BLOOD Lab Routine Annual physical exam Ordered: 12/03/2018 documented as of this encounter Visit Diagnoses Diagnosis Annual physical exam- Primary Routine general medical examination at a health care facility Mixed hyperlipidemia Special screening for malignant neoplasm of prostate RANDY on CPAP Obstructive sleep apnea (adult) (pediatric) H/O nicotine dependence Personal history of tobacco use, presenting hazards to health documented in this encounter Care Teams Fuel Storage Technician Relationship Specialty Start Date End Date Yosvany Gonsalez MD [address] [id number] PCP - General Internal Medicine 04/08/13 09/03/19 documented as of this encounter
--- OUTSIDE RECORDS SUMMARY | 2024-11-02 07:27 | XMS_ITS | Encounter Summary ---
Author Organization [facility] Health Address [address] [place] [address] Care Team Providers Care Gas Substation Operator Name Role Phone Yosvany Gonsalez MD Primary Care Provider [phone] Encounter Details Date Type Department Care Team (Late st Contact Info) Description 02/15/2019 Orders Only [facility] - Family Medicine [address] [place] [phone] Yosvany Gonsalez MD [address] [place] [phone] Social History Tobacco Use Types Packs/Day Years [...] No 10/02/2018 documented as of this encounter Plan of Treatment Not on file documented as of this encounter Procedures Procedure Name Priority Date/Time Associated Diagnosis Comments URIC ACID BLOOD 02/15/2019 7:51 AM CDT HEMOGLOBIN A1C 02/15/2019 7:51 AM CDT CBC W AUTO DIFFERENTIAL 02/15/2019 7:51 AM CDT COMPREHENSIVE METABOLIC PANEL 02/15/2019 7:51 AM CDT PROSTATE SPECIFIC ANTIGEN SCREEN 02/15/2019 7:51 AM CDT VITAMIN B12 02/15/2019 7:51 AM CDT TSH 02/15/2019 7:51 AM CDT LIPID PROFILE 02/15/2019 7:51 AM CDT documented in this encounter Results * HEMOGLOBIN A1C (02/15/2019 7:51 AM CDT) Hemoglobin A1c 5.6 <5.7 % of total Hgb [facility] Comment: For the purpose of screening for the presence of diabetes: <5.7% ? Consistent with the absence of diabetes 5.7-6.4% ?Consistent with increased risk for diabetes ?(prediabetes) > or =6.5% ??Consistent with diabetes This assay result is consistent with a decreased risk of diabetes. Currently, no consensus exists regarding use of hemoglobin A1c for diagnosis of diabetes in children. According to [place] Diabetes Association (ADA) guidelines, hemoglobin A1c <7.0% represents optimal control in non- diabetic patients. Different metrics may apply to specific patient populations. Standards of Medical Care in Diabetes(ADA). ?? REPORT COMMENT: FASTING:YES Test Performed at: [facility] [address] [place], [place] ??[address] MICHEL LEO DO,MPH 02/15/2019 7:51 AM CDT 02/15/2019 7:52 AM CDT Yosvany Gonsalez MD LAB - CHEMISTRY ORDE RABLES Performing Organization Address [facility] de Phone Number [facility] [address] [place] [address] * PROSTATE SPECIFIC ANTIGEN SCREEN (02/15/2019 7:51 AM CDT) [facility] PSA 0.6 < OR = 4.0 ng/mL [facility] Comment: The total PSA value from this assay system is standardized against the WHO standard. The test result will be approximately 20% lower when compared to the equimolar-standardized total PSA (Sung Beckie). Comparison of serial PSA results should be interpreted with this fact in mind. This test was performed using the Siemens chemiluminescent method. Values obtained from different assay methods cannot be used interchangeably. PSA levels, regardless of value, should not be interpreted as absolute evidence of the presence or absence of disease. Test Performed at: [place] ??[address] MICHEL LEO DO,MPH 02/15/2019 7:51 AM CDT 02/15/2019 7:52 AM CDT Yosvany Gonsalez MD LAB - CHEMISTRY VIVIANA ADAMS Performing Organization Address [facility] de Phone Number [facility] [address] [place] [address] * VITAMIN B12 (02/15/2019 7:51 AM CDT) [facility] Vitamin B12 240 200 - 1100 pg/mL DENISE Comment: Please Note: Although the reference range for vitamin B12 is 200-1100 pg/mL, it has been reported that between 5 and 10% of patients with values between 200 and 400 pg/mL may experience neuropsychiatric and hematologic abnormalities due to occult B12 deficiency; less than 1% of patients with values above 400 pg/mL will have symptoms. Test Performed at: [facility] [place] [place], [place] ??[address] MICHEL LEO DO,MPH 02/15/2019 7:51 AM CDT 02/15/2019 7:52 AM CDT Yosvany Gonsalez MD LAB - CHEMISTRY VIVIANA ADAMS Performing Organization Address [facility]/ZIP Co de Phone Number [facility] [phone] [place] [address] * TSH (02/15/2019 7:51 AM CDT) Pathologist [facility] TSH 1.14 0.40 - 4.50 mIU/L [facility] Comment: Test Performed at: [facility] [address] [place], [place] ??[address] MICHEL LEO DO,MPH 02/15/2019 7:51 AM CDT 02/15/2019 7:52 AM CDT Yosvany Gonsalez MD LAB - CHEMISTRY VIVIANA ADAMS Performing Organization Address City/State/[facility] Co de Phone Number [facility] [address] [place] [address] * CBC WITH DIFFERENTIAL (02/15/2019 7:51 AM CDT) [facility] White Blood Cell Count 4.0 3.8 - 10.8 Thousand/u L [facility] RBC 4.63 4.20 - 5.80 Million/uL [facility] Hemoglobin 14.9 13.2 - 17.1 g/dL [facility] Hematocrit 43.4 38.5 - 50.0 % [facility] MCV 93.7 80.0 - 100.0 fL [facility] MCH 32.2 27.0 - 33.0 pg [facility] MCHC 34.3 32.0 - 36.0 g/dL [facility] RDW 13.0 11.0 - 15.0 % [facility] Platelet Count 247 140 - 400 Thousand/u L [facility] MPV 10.6 7.5 - 12.5 fL [facility] Neutrophil Absolute 1840 1500 - 7800 cells/uL [facility] Lymphocytes Absolute 1636 850 - 3900 cells/uL [facility] Absolute Monocytes 428 200 - 950 cells/uL [facility] Eosinophils Absolute 48 15 - 500 cells/uL [facility] Basophils Absolute 48 0 - 200 cells/uL [facility] Granulocytes % 46 % [facility] Lymphocytes % 40.9 % [facility] Monocytes % 10.7 % [facility] Eosinophils % 1.2 % [facility] Basophils % 1.2 % [facility] Comment: Test Performed at: [facility] [address] [place], [place] ??[phone] MICHEL LEO DO,MPH 02/15/2019 7:51 AM CDT 02/15/2019 7:52 AM CDT Yosvany Gonsalez MD LAB - HEMATOLOGY ORD JENNY Performing Organization Address [facility] Co de Phone Number [facility] [address] [place] [phone] * COMPREHENSIVE METABOLIC PANEL (02/15/2019 7:51 AM CDT) Pathologist [facility] Glucose 95 65 - 99 mg/dL [facility] Comment: ? Fasting reference interval BUN 14 7 - 25 mg/dL [facility] Creatinine 0.74 0.70 - 1.25 mg/dL [facility] Comment: For patients >49 years of age, the reference limit for Creatinine is approximately 13% higher for people identified as -[place]. eGFR by MDRD 97 > OR = [...] 46 U/L [facility] Comment: Test Performed at: [facility] ??[phone] MICHEL LEO DO,MPH 02/15/2019 7:51 AM CDT 02/15/2019 7:52 AM CDT Yosvany Gonsalez MD LAB - CHEMISTRY VIVIANA ADAMS Performing Organization Address City/[facility] Co de Phone Number [facility] [address] [place] [address] * URIC ACID BLOOD (02/15/2019 7:51 AM CDT) Uric Acid 6.3 4.0 - 8.0 mg/dL [facility] Comment: Therapeutic target for gout patients: <6.0 mg/dL ?? Test Performed at: [facility] [address] [place], [place] ??[phone] MICHEL LEO DO,MPH 02/15/2019 7:51 AM CDT 02/15/2019 7:52 AM CDT Yosvany Gonsalez MD LAB - CHEMISTRY VIVIANA ADAMS [facility] [address] [place] [address] * LIPID PROFILE (02/15/2019 7:51 AM CDT) Cholesterol 159 <200 mg/dL [facility] HDL Cholesterol 48 >40 mg/dL [facility] Triglycerides 93 <150 mg/dL [facility] LDL Calculated 92 mg/dL (calc) [facility] Comment: Reference range: <100 Desirable range <100 mg/dL for primary prevention; ?? <70 mg/dL for patients with CHD or diabetic patients with > or = 2 CHD risk factors. LDL-C is now calculated using the Armani-Goldstein calculation, which is a validated novel method providing better accuracy than the Friedewald equation in the estimation of LDL-C. Armani SS et al. RODOLFO. 2013;310(19): 8009-6801 (http://education.Packetworx.Virtru/faq/DFP402) CHOL/HDLC RATIO 3.3 <5.0 (calc) [facility] Non HDL Cholesterol 111 <130 mg/dL (calc) [facility] Comment: For patients with diabetes plus 1 major ASCVD risk factor, treating to a non-HDL-C goal of <100 mg/dL (LDL-C of <70 mg/dL) is considered a therapeutic option. Test Performed at: [facility] [address] [place], [place] ??[phone] MICHEL LEO DO,MPH 02/15/2019 7:51 AM CDT 02/15/2019 7:52 AM CDT Yosvany A Gonsalez MD LAB - CHEMISTRY VIVIANA ADAMS [facility] [address] [place] [address] documented in this encounter Visit Diagnoses Not on filedocumented in this encounter Care Teams Gas Substation Operator Relationship Specialty Start Date End Date Yosvany Gonsalez MD [address] [place] [address] [place] [address] PCP - General Internal Medicine 04/08/13 09/03/19 documented as of this encounter
--- OUTSIDE RECORDS SUMMARY | 2024-11-02 07:27 | XMS_ITS | Encounter Summary ---
Author Organization [facility] Address [address] [place] [address] Care Team Providers Care Sliver Lapper Name Role Phone Yosvany Gonsalez MD Primary Care Provider Reason for Visit * Reason Comments Chronic Condition(s) Follow-up Medication Management Hypertension Encounter Details Date Type Department Care Team (Latest Contact Info) Description 06/03/2019 4:30 PM CDT Office Visit [facility] - Family Medicine [address], [place] [phone] Yosvany Gonsalez MD [address] [place] [address] Annual physical exam (Primary Dx); RANDY on CPAP; H/O nicotine dependence; High risk medications (not anticoagulants) long-term use; Mixed hyperlipidemia Social History Tobacco Use Types Packs/Day Years [...] Sign Reading Time Taken Comments Blood Pressure 128/76 06/03/2019 4:30 PM CDT Pulse 79 06/03/2019 4:30 PM CDT Temperature - - Respiratory Rate - - Oxygen Saturation 95% 06/03/2019 4:30 PM CDT Inhaled Oxygen Concentration - - Weight 75.8 kg (167 lb) 06/03/2019 4:30 PM CDT Height 170.2 cm (5' 7 ) 06/03/2019 4:30 PM CDT Body Mass Index 26.16 06/03/2019 4:30 PM CDT documented in this encounter Functional Status Functional [...] Progress Notes * Yosvany Gonsalez MD - 06/03/2019 5:47 PM CDT Date: 06/03/2019 Pt Name: Natan Patel : 1955 AGE: [age] year old SEX: male SUBJECTIVE: Chief Complaint Patient presents with ??? Chronic Condition(s) Follow-up ??? Medication Management ??? Hypertension History of Present Illness: 63-year-old male here for his annual physical Hypertension heart rate and pressure stable at home no chest pain chest tightness, no palpitations or dizziness reported. Hyperlipidemia on statins, diet doing well with no complaints. Acid reflux on pantoprazole watching lifestyle no recent flare-ups. Severe DJD takes oxycodone occasionally seeing orthopedic service symptoms stable at this point risk of addiction reviewed. NO SIGNIFICANT CHANGE IN WEIGHT, NO RECENT ISSUES WITH FEVER, CHILLS. ALL MEDICATIONS WITH INSTRUCTIONS REVIEWED AT TODAY'S VISIT Current Outpatient Prescriptions Medication Sig Dispense Refill ??? aspirin (ASPIRIN) 81 MG chew tablet Take 81 mg by mouth once daily ??? Cholecalciferol (VITAMIN D) 2000 UNITS CAPS capsule Take 2,000 Units by mouth once daily ??? [place]-3 Fatty Acids (FISH OIL) 1000 MG capsule Take by mouth once daily ??? oxyCODONE-acetaminophen (PERCOCET) 7.5-325 MG tablet Take 1-2 tablets by mouth every 4 hours asneeded for Pain (for moderate to severe pain) 120 tablet 0 ??? pantoprazole EC (PROTONIX) [...] of education: 12 Occupational History ??? [employer] Social History Main Topics ??? Smoking status: [...] Normal OBJECTIVE: WDWN, Alert, No Distress BP 128/76 Pulse 79 Ht 1.702 m (5' 7 ) Wt 75.8 kg (167 lb) SpO2 95% BMI 26.16 kg/m2 PHYSICAL EXAM: BP 128/76 Pulse 79 Ht 1.702 m (5' 7 ) Wt 75.8 kg (167 lb) SpO2 95% BMI 26.16 kg/m2 General appearance: alert, cooperative, no distress [...] cerebellar exam at baseline, no apparent deficits No results found for this or any previous visit (from the past 1344 hour(s)). ASSESSMENT: ICD-10-CM 1. Annual physical exam Z00.00 CBC WITH DIFFERENTIAL COMPREHENSIVE METABOLIC PANEL LIPID PROFILE TSH HEMOGLOBIN A1C PROSTATE SPECIFIC ANTIGEN SCREEN URIC ACID BLOOD VITAMIN B12 2. RANDY on CPAP G47.33 Z99.89 3. H/O nicotine dependence Z87.891 4. High risk medications (not anticoagulants) long-term use Z79.899 5. Mixed hyperlipidemia E78.2 PLAN: Orders Placed This Encounter ??? CBC WITH DIFFERENTIAL ??? COMPREHENSIVE METABOLIC PANEL ??? LIPID PROFILE ??? TSH ??? HEMOGLOBIN A1C ??? PROSTATE SPECIFIC ANTIGEN SCREEN ??? URIC ACID BLOOD ??? VITAMIN B12 Return in about 6 months (around 12/04/2019). RECENT COMPREHENSIVE SET OF LABS INCLUDING CBC, CMP, FBS ETC WERE ALL REVIEWED, DEVIATION FROM NORMAL NOTED, QUESTIONS, CONCERNS WERE ADDRESSED . USE OF CURRENT PRESCRIPTION MEDICATIONS, IT'S MANAGEMENT AND IMPACT ON PATIENT'S HEALTH DISCUSSED. Yosvany Gonsalez MD documented in this encounter Plan of Treatment Scheduled Orders Name Type Priority Associated Diagnoses Orde r Schedule CBC WITH DIFFERENTIAL Lab Routine Annual physical exam Ordered: 06/03/2019 COMPREHENSIVE METABOLIC PANEL Lab Routine Annual physical exam Ordered: 06/03/2019 LIPID PROFILE Lab Routine Annual physical exam Ordered: 06/03/2019 TSH Lab Routine Annual physical exam Ordered: 06/03/2019 HEMOGLOBIN A1C Lab Routine Annual physical exam Ordered: 06/03/2019 PROSTATE SPECIFIC ANTIGEN SCREEN Lab Routine Annual physical exam Ordered: 06/03/2019 URIC ACID BLOOD Lab Routine Annual physical exam Ordered: 06/03/2019 documented as of this encounter Visit Diagnoses Diagnosis Annual physical exam- Primary Routine general medical examination at a health care facility RANDY on CPAP Obstructive sleep apnea (adult) (pediatric) H/O nicotine dependence Personal history of tobacco use, presenting hazards to health High risk medications (not anticoagulants) long-term use Encounter for long-term (current) use of other medications Mixed hyperlipidemia documented in this encounter Care Teams Sliver Lapper Relationship Specialty Start Date End Date Yosvany Gonsalez MD [address] [place] [phone] PCP - General Internal Medicine 04/08/13 09/03/19 documented as of this encounter
--- OUTSIDE RECORDS SUMMARY | 2024-11-02 07:27 | XMS_ITS | Patient Health Summary ---
Author Organization [facility] Address [address] [place] [address] Care Team Providers Care Assistant Tennis Professional Name Role Phone Addison Joy MD Primary Care Provider [phone] Note from [facility],non-owned Affiliates and Associated Physician Practices is amultiple site organization consisting of ambulatory clinics and hospital sitesin [place], [place]. This disclosure is being madepursuant to the Care Everywhere program and may not contain all information available regarding this patient. Last updated 18.[facility] Allergies * Morphine(Itching) Medications * Be aware that medications may not be up to date on this document. Alwaysverify current medications with the patient. * Cholecalciferol (VITAMIN D) 2000 UNITS CAPS capsule Take 2,000 Units by mouth once daily * vitamin E (TOCOPHERYL) 400 UNIT tablet Take 400 Units by mouth once daily * aspirin (ASPIRIN) 81 MG chew tablet Take 81 mg by mouth once daily * [place]-3 Fatty Acids (FISH OIL) 1000 MG capsule Take by mouth once daily * oxyCODONE-acetaminophen (PERCOCET) 7.5-325 MG tablet(Started 10/02/2018) Take 1-2 tablets by mouth every 4 hours as needed for Pain (for moderate to severe pain) * pantoprazole EC (PROTONIX) 40 MG tablet(Started 10/04/2018) Take 1 tablet by mouth once daily 3 refills remaining * pravastatin (PRAVACHOL) 80 MG tablet(Started 11/09/2018) Take 1 tablet by mouth at bedtime 3 refills remaining * predniSONE (DELTASONE) 10 MG tablet(Started 07/26/2019) Take 1 tablet by mouth as directed 4 tab day1, then3 tabs for 3 days, then 2 tabs for 3 days , then1 tab for 3 days * benzonatate (TESSALON) 100 MG capsule(Started 07/26/2019) Take 1 capsule by mouth 3 times daily as needed for Cough Active Problems Problem Noted Date Diagnosed Date [...] Tendonitis of shoulder, right 04/15/2013 06/03/2019 Immunizations * FLU VACCINE TRI IIV3 SPLIT PF IM (FLUVIRIN)(Given 10/06/2014) * INFLUENZA VACCINE, QUADR. (FLUZONE; FLULAVAL; FLUARIX; AFLURIA QUADRIVALENT; 6MO+), 0.5 ML (IIV4)(Given 10/03/2018, 10/19/2016, 10/16/2015) * Pneumococcal Pcv13 Conj(Given 10/20/2016, 10/16/2016) Social History Tobacco Use Types Packs/Day Years [...] Mass Index 25.22 06/03/2019 4:30 PM CDT Medical Devices Implanted Type Area Capacity Planning Engineer Device Identifier Shelf Expiration Date Model / Serial / Lot Lukas Bone Void .5ml Dbx Algrf Frzdr Ptty - [id number] Implanted:Qty : 1 on 10/02/2018 by Chris Kay MD at [facility] Cervical Musculoskeletal Transplant Foundati 05/25/2020 [id number] / [id number] / Spcr Algrf [id number] Ccs Prll Spne Ayo - [id number] Implanted:Qty : 1 on 10/02/2018 by Chris Kay MD at [facility] Cervical Musculoskeletal Transplant Foundati 06/14/2021 [id number] / [id number] / Description:C6-C7 Graft Bone Vivigen Ayo Cnc Dmnr 1cc - [id number] Implanted:Qty : 1 on 10/02/2018 by Chris Kay MD at [facility] Cervical Lifenet 08/07/2019 BL-[id number] 01 / [id number] / Plate Bnt Grv Prebnt [id number] 1 Lvl 1 - [id number] Implanted:Qty : 1 on 10/02/2018 by Chris Kay MD at [facility] Cervical Synthes Spine 450.552 / [id number] / Description:C6-7 Screw 4.5mm 18mm Spne Crv Ant Slf-Tap Implanted:Qty : 4 on 10/02/2018 by Chris Kay MD at [facility] Cervical Synthes Spine 04.613.66 8 / / Description:C6-7 Spcr Algrf [id number] Prll Spne Crv Ayo - [id number] Implanted:Qty : 1 on 10/02/2018 by Chris Kay MD at [facility] Cervical Musculoskeletal Transplant Foundati 02/07/2021 [id number] / [id number] / Screw 4.5mm 16mm Spne Crv Ant Slf-Tap Implanted:Qty : 4 on 10/02/2018 by Chris Kay MD at [facility] Cervical Synthes Spine 6 / / Description:C3-4 Vectra Plate Implanted:Qty : 1 on 10/02/2018 by Chris Kay MD at [facility] Cervical 4 / [id number] / Procedures * STREP A SCREEN - POINT OF CARE (AMB) SMGS(Performed 07/26/2019) Performed for Sore throat * HEMOGLOBIN A1C(Performed 02/15/2019) * PROSTATE SPECIFIC ANTIGEN SCREEN(Performed 02/15/2019) * VITAMIN B12(Performed 02/15/2019) * TSH(Performed 02/15/2019) * CBC W AUTO DIFFERENTIAL(Performed 02/15/2019) * COMPREHENSIVE METABOLIC PANEL(Performed 02/15/2019) * URIC ACID BLOOD(Performed 02/15/2019) * LIPID PROFILE(Performed 02/15/2019) * CBC W AUTO DIFFERENTIAL(Performed 11/27/2018) * COMPREHENSIVE METABOLIC PANEL(Performed 11/27/2018) * TSH(Performed 11/27/2018) * URIC ACID BLOOD(Performed 11/27/2018) * LIPID PROFILE(Performed 11/27/2018) * CARDIAC RHYTHM STRIP ORDER(Performed 10/04/2018) * PT EVAL AND TREAT(Performed 10/02/2018) * OT EVAL AND TREAT(Performed 10/02/2018) * XR CERVICAL SPINE 2 OR 3VW(Performed 10/02/2018) Performed for Herniated nucleus pulposus, C3-4 left, Osteoarthritis of cervical spine, unspecified spinal osteoarthritis complication status, Stenosis of cervical spine * GROSS + MICRO EXAM (ILL)(Performed 10/02/2018) Performed for Herniated nucleus pulposus, C3-4 left, Osteoarthritis of cervical spine, unspecified spinal osteoarthritis complication status, Stenosis of cervical spine * DISCECTOMY WITH FUSION ANTERIOR CERVICAL (ACDF) MULTI-LEVEL(Performed 10/02/2018) Performed for Herniated nucleus pulposus, C3-4 left, Osteoarthritis of cervical spine, unspecified spinal osteoarthritis complication status, Stenosis of cervical spine * BLOOD TYPE VERIFICATION(Performed 10/02/2018) * TYPE + SCREEN PANEL(Performed 09/25/2018) Performed for Herniated nucleus pulposus, C3-4 left, Cervical stenosis of spine * HGB HCT PANEL(Performed 09/25/2018) Performed for Herniated nucleus pulposus, C3-4 left, Cervical stenosis of spine, Chronic obstructive pulmonary disease, unspecified COPD type (HCC) * MRSA + SA DNA PCR PANEL(Performed 09/25/2018) Performed for Herniated nucleus pulposus, C3-4 left, Cervical stenosis of spine * EKG 12-LEAD(Performed 09/25/2018) Performed for Herniated nucleus pulposus, C3-4 left, Cervical stenosis of spine, Chronic obstructive pulmonary disease, unspecified COPD type (HCC) * NICOTINE + METABOLITES URINE(Performed 09/06/2018) Performed for H/O nicotine dependence * URIC ACID BLOOD(Performed 04/16/2018) Performed for Annual physical exam, High risk medications (not anticoagulants) long-term use, Special screening for malignant neoplasm of prostate, Mixed hyperlipidemia, Fatigue, unspecified type, Abnormal glucose * PROSTATE SPECIFIC ANTIGEN SCREEN(Performed 04/16/2018) Performed for Annual physical exam, High risk medications (not anticoagulants) long-term use, Special screening for malignant neoplasm of prostate, Mixed hyperlipidemia, Fatigue, unspecified type, Abnormal glucose * TSH(Performed 04/16/2018) Performed for Annual physical exam, High risk medications (not anticoagulants) long-term use, Special screening for malignant neoplasm of prostate, Mixed hyperlipidemia, Fatigue, unspecified type, Abnormal glucose * T4 FREE(Performed 04/16/2018) Performed for Annual physical exam, High risk medications (not anticoagulants) long-term use, Special screening for malignant neoplasm of prostate, Mixed hyperlipidemia, Fatigue, unspecified type, Abnormal glucose * LIPID PROFILE(Performed 04/16/2018) Performed for Annual physical exam, High risk medications (not anticoagulants) long-term use, Special screening for malignant neoplasm of prostate, Mixed hyperlipidemia, Fatigue, unspecified type, Abnormal glucose * HEMOGLOBIN A1C(Performed 04/16/2018) Performed for Annual physical exam, High risk medications (not anticoagulants) long-term use, Special screening for malignant neoplasm of prostate, Mixed hyperlipidemia, Fatigue, unspecified type, Abnormal glucose * COMPREHENSIVE METABOLIC PANEL(Performed 04/16/2018) Performed for Annual physical exam, High risk medications (not anticoagulants) long-term use, Special screening for malignant neoplasm of prostate, Mixed hyperlipidemia, Fatigue, unspecified type, Abnormal glucose * CBC W AUTO DIFFERENTIAL(Performed 04/16/2018) Performed for Annual physical exam, High risk medications (not anticoagulants) long-term use, Special screening for malignant neoplasm of prostate, Mixed hyperlipidemia, Fatigue, unspecified type, Abnormal glucose * INFLUENZA A+B - POINT OF CARE (AMB)(Performed 10/24/2017) Performed for Body aches * COMPREHENSIVE METABOLIC PANEL(Performed 04/19/2017) Performed for Mixed hyperlipidemia, Cigarette nicotine dependence without complication, Special screening for malignant neoplasm of prostate, High risk medications (not anticoagulants) long-term use,RANDY on CPAP * CBC W AUTO DIFFERENTIAL(Performed 04/19/2017) Performed for Mixed hyperlipidemia, Cigarette nicotine dependence without complication, Special screening for malignant neoplasm of prostate, High risk medications (not anticoagulants) long-term use,RANDY on CPAP * URIC ACID BLOOD(Performed 04/19/2017) Performed for Mixed hyperlipidemia, Cigarette nicotine dependence without complication, Special screening for malignant neoplasm of prostate, High risk medications (not anticoagulants) long-term use,RANDY on CPAP * T4 FREE(Performed 04/19/2017) Performed for Mixed hyperlipidemia, Cigarette nicotine dependence without complication, Special screening for malignant neoplasm of prostate, High risk medications (not anticoagulants) long-term use,RANDY on CPAP * TSH(Performed 04/19/2017) Performed for Mixed hyperlipidemia, Cigarette nicotine dependence without complication, Special screening for malignant neoplasm of prostate, High risk medications (not anticoagulants) long-term use,RANDY on CPAP * LIPID PROFILE(Performed 04/19/2017) Performed for Mixed hyperlipidemia, Cigarette nicotine dependence without complication, Special screening for malignant neoplasm of prostate, High risk medications (not anticoagulants) long-term use,RANDY on CPAP * HEMOGLOBIN A1C(Performed 04/19/2017) Performed for Mixed hyperlipidemia, Cigarette nicotine dependence without complication, Special screening for malignant neoplasm of prostate, High risk medications (not anticoagulants) long-term use,RANDY on CPAP * HEMOGLOBIN A1C(Performed 10/11/2016) * PROSTATE SPECIFIC ANTIGEN SCREEN(Performed 10/11/2016) * TSH(Performed 10/11/2016) * CBC W AUTO DIFFERENTIAL(Performed 10/11/2016) * COMPREHENSIVE METABOLIC PANEL(Performed 10/11/2016) * URIC ACID BLOOD(Performed 10/11/2016) * LIPID PROFILE(Performed 10/11/2016) * ECHOCARDIOGRAM STRESS(Performed 11/16/2015) Performed for Atypical chest pain * STRESS TEST TREADMILL (NO IMAGING)(Performed 11/16/2015) Performed for Atypical chest pain * HEMOGLOBIN A1C(Performed 10/02/2015) * PROSTATE SPECIFIC ANTIGEN SCREEN(Performed 10/02/2015) * TSH(Performed 10/02/2015) * CBC W AUTO DIFFERENTIAL(Performed 10/02/2015) * COMPREHENSIVE METABOLIC PANEL(Performed 10/02/2015) * URIC ACID BLOOD(Performed 10/02/2015) * LIPID PROFILE(Performed 10/02/2015) * GROSS + MICRO EXAM (ILL)(Performed 02/04/2015) Performed for Screen for colon cancer * XR CHEST 2VW(Performed 10/15/2014) Performed for Chronic cough * PROSTATE SPECIFIC ANTIGEN SCREEN(Performed 10/06/2014) Performed for Hyperlipidemia, Nicotine dependence, Special screening for malignant neoplasm of prostate, Annual physical exam * HEMOGLOBIN A1C(Performed 10/06/2014) Performed for Hyperlipidemia, Nicotine dependence, Special screening for malignant neoplasm of prostate, High risk medications (not anticoagulants) long- term use, Annual physical exam * TSH(Performed 10/06/2014) Performed for Hyperlipidemia, Nicotine dependence, Special screening for malignant neoplasm of prostate, High risk medications (not anticoagulants) long- term use, Annual physical exam * LIPID PROFILE(Performed 10/06/2014) Performed for Hyperlipidemia, Nicotine dependence, Special screening for malignant neoplasm of prostate, High risk medications (not anticoagulants) long- term use, Annual physical exam * COMPREHENSIVE METABOLIC PANEL(Performed 10/06/2014) Performed for Hyperlipidemia, Nicotine dependence, Special screening for malignant neoplasm of prostate, High risk medications (not anticoagulants) long- term use, Tendonitis of shoulder, right, Annual physical exam * CBC W AUTO DIFFERENTIAL(Performed 10/06/2014) Performed for Hyperlipidemia, Nicotine dependence, Special screening for malignant neoplasm of prostate, High risk medications (not anticoagulants) long- term use, Tendonitis of shoulder, right, Annual physical exam * HEMOGLOBIN A1C(Performed 10/01/2013) Performed for Hyperlipidemia, Nicotine dependence, Special screening for malignant neoplasm of prostate, High risk medications (not anticoagulants) long- term use, Tendonitis of shoulder, right * URIC ACID BLOOD(Performed 10/01/2013) Performed for Hyperlipidemia, Nicotine dependence, Special screening for malignant neoplasm of prostate, High risk medications (not anticoagulants) long- term use, Tendonitis of shoulder, right * TSH(Performed 10/01/2013) Performed for Hyperlipidemia, Nicotine dependence, Special screening for malignant neoplasm of prostate, High risk medications (not anticoagulants) long- term use, Tendonitis of shoulder, right * PROSTATE SPECIFIC ANTIGEN SCREEN(Performed 10/01/2013) Performed for Hyperlipidemia, Nicotine dependence, Special screening for malignant neoplasm of prostate, High risk medications (not anticoagulants) long- term use, Tendonitis of shoulder, right * LIPID PROFILE(Performed 10/01/2013) Performed for Hyperlipidemia, Nicotine dependence, Special screening for malignant neoplasm of prostate, High risk medications (not anticoagulants) long- term use, Tendonitis of shoulder, right * COMPREHENSIVE METABOLIC PANEL(Performed 10/01/2013) Performed for Hyperlipidemia, Nicotine dependence, Special screening for malignant neoplasm of prostate, High risk medications (not anticoagulants) long- term use, Tendonitis of shoulder, right * CBC W AUTO DIFFERENTIAL(Performed 10/01/2013) Performed for Hyperlipidemia, Nicotine dependence, Special screening for malignant neoplasm of prostate, High risk medications (not anticoagulants) long- term use, Tendonitis of shoulder, right * LIPID PROFILE W LDL/HDL RATIO(Performed 04/03/2013) * COMPREHENSIVE METABOLIC PANEL(Performed 04/03/2013) Results * STREP A SCREEN - POINT OF CARE (AMB) SMGS (07/26/2019 4:44 PM CDT) Pathologist [facility] Strep A Rapid POCT Negative Negative Strep A Rapid Screen Internal Control POCT Present Throat ENTIRE THROAT (SURFACE REGION OF NECK) / Unknown 07/26/2019 4:44 PM CDT Tiffanie Hernandez APRN-POST TENSIONING IRONWORKER LAB - POINT OF C ARE ORDERABLES * URIC ACID BLOOD (02/15/2019 7:51 AM CDT) Only the most recent of7 resultswithin the time period is included. Uric Acid 6.3 4.0 - 8.0 mg/dL [facility] Comment: Therapeutic target for gout patients: <6.0 mg/dL ?? Test Performed at: [email or web address] [address] [place], [place] ??[phone] MICHEL LEO DO,MPH 02/15/2019 7:51 AM CDT 02/15/2019 7:52 AM CDT Yosvany Gonsalez MD LAB - CHEMISTRY [facility] Performing Organization Address [facility] Co de Phone Number [facility] [address] [place] [address] * HEMOGLOBIN A1C (02/15/2019 7:51 AM CDT) Only the most recent of7 resultswithin the time period is included. Hemoglobin A1c 5.6 <5.7 % of total [...] diagnosis of diabetes in children. According to [place] Diabetes Association (ADA) guidelines, hemoglobin A1c <7.0% represents optimal control in non- diabetic patients. Different metrics may apply to specific patient populations. Standards of Medical Care in Diabetes(ADA). ?? REPORT COMMENT: FASTING:YES Test Performed at: [facility] [address] [place], [place] ??[phone] MICHEL LEO DO,MPH 02/15/2019 7:51 AM CDT 02/15/2019 7:52 AM CDT Yosvany Gonsalez MD LAB - CHEMISTRY [facility] Performing Organization Address City/[facility]/ZIP Co de Phone Number [facility] [address] [place] [address] * CBC WITH DIFFERENTIAL (02/15/2019 7:51 AM CDT) Only the most recent of8 resultswithin the time period is included. White Blood Cell Count 4.0 3.8 - [...] 1.2 % [facility] Comment: Test Performed at: [facility] [address] [place], [place] ??[phone] MICHEL LEO DO,MPH 02/15/2019 7:51 AM CDT 02/15/2019 7:52 AM CDT Yosvany Gonsalez MD LAB - HEMATOLOGY ORD ERABLES [facility] [address] [place] [address] * COMPREHENSIVE METABOLIC PANEL (02/15/2019 7:51 AM CDT) Only the most recent of9 resultswithin the time period is included. Pathologist [facility] Glucose 95 65 - 99 mg/dL [facility] Comment: ? Fasting reference interval BUN 14 7 - 25 mg/dL [facility] Creatinine 0.74 0.70 - 1.25 mg/dL [facility] Comment: For patients >49 years of age, the reference limit for Creatinine is approximately 13% higher for people identified as -Cub[place]. eGFR by MDRD 97 > OR = [...] 46 U/L [facility] Comment: Test Performed at: [email or web address] [address] [place] [address] ??[phone] MICHEL LEO DO,MPH 02/15/2019 7:51 AM CDT 02/15/2019 7:52 AM CDT Yosvany Gonsalez MD LAB - CHEMISTRY [facility] [address] [place] [address] * PROSTATE SPECIFIC ANTIGEN SCREEN (02/15/2019 7:51 AM CDT) Only the most recent of6 resultswithin the time period is included. PSA 0.6 < OR = 4.0 ng/mL [facility] Comment: The total PSA value from this assay system is standardized against the WHO standard. The test result will be approximately 20% lower when compared to the equimolar-standardized total PSA ([place]). Comparison of serial PSA results should be interpreted with this fact in mind. This test was performed using the Siemens chemiluminescent method. Values obtained from different assay methods cannot be used interchangeably. PSA levels, regardless of value, should not be interpreted as absolute evidence of the presence or absence of disease. Test Performed at: [facility] [address] [place], [place] ??[address] MICHEL LEO DO,MPH 02/15/2019 7:51 AM CDT 02/15/2019 7:52 AM CDT Yosvanygretchen Gonsalez MD LAB - CHEMISTRY [facility] Performing Organization Address [facility] Co de Phone Number [facility] [phone] [place] [address] * VITAMIN B12 (02/15/2019 7:51 AM CDT) [facility] Vitamin B12 240 200 - 1100 pg/mL [facility] Comment: Please Note: Although the reference range for vitamin B12 is 200-1100 pg/mL, it has been reported that between 5 and 10% of patients with values between 200 and 400 pg/mL may experience neuropsychiatric and hematologic abnormalities due to occult B12 deficiency; less than 1% of patients with values above 400 pg/mL will have symptoms. Test Performed at: [facility] [place], [place] ??[phone] MICHEL LEO DO,MPH 02/15/2019 7:51 AM CDT 02/15/2019 7:52 AM CDT Yosvanygretchen Gonsalez MD LAB - CHEMISTRY [facility] Performing Organization Address [facility] Co de Phone Number [facility] [phone] [place] [address] * TSH (02/15/2019 7:51 AM CDT) Only the most recent of8 resultswithin the time period is included. [facility] TSH 1.14 0.40 - 4.50 mIU/L [facility] Comment: Test Performed at: [place] ??[phone] MICHEL LEO DO,MPH 02/15/2019 7:51 AM CDT 02/15/2019 7:52 AM CDT Yosvanygretchen Gonsalez MD LAB - CHEMISTRY [facility] Performing Organization Address [facility] Co de Phone Number [facility] [phone] [place] [address] * LIPID PROFILE (02/15/2019 7:51 AM CDT) Only the most recent of8 resultswithin the time period is included. [facility] Cholesterol 159 <200 mg/dL [facility] HDL Cholesterol 48 >40 mg/dL [facility] Triglycerides 93 <150 mg/dL [facility] LDL Calculated 92 mg/dL (calc) [facility] Comment: Reference range: <100 Desirable range <100 mg/dL for primary prevention; ?? <70 mg/dL for patients with CHD or diabetic patients with > or = 2 CHD risk factors. LDL-C is now calculated using the Estela calculation, which is a validated novel method providing better accuracy than the Friedewald equation in the estimation of LDL-C. Armani SS et al. RODOLFO. 2013;310(88): 9279-2803 (http://education.kites.io/faq/LNC046) CHOL/HDLC RATIO 3.3 <5.0 (calc) [facility] Non HDL Cholesterol 111 <130 mg/dL (calc) [facility] Comment: For patients with diabetes plus 1 major ASCVD risk factor, treating to a non-HDL-C goal of <100 mg/dL (LDL-C of <70 mg/dL) is considered a therapeutic option. Test Performed at: [email or web address] [address] [place], [place] ??[phone] MICHEL LEO DO,MPH 02/15/2019 7:51 AM CDT 02/15/2019 7:52 AM CDT Yosvany Gonsalez MD LAB - CHEMISTRY [facility] Organization Address City/State/ZIP Co de Phone Number [facility] [address] [place] [address] * CARDIAC RHYTHM STRIP ORDER (10/04/2018 2:06 PM SCALE MODEL MAKER) Narrative 10/04/2018 2:06 PM SCALE MODEL MAKER Ordered by an unspecified provider. Scanned Document CARDIAC SERVICES ORD ERABLES * XR CERVICAL SPINE 2 OR 3 VW [id number] (10/02/2018 5:55 PM SCALE MODEL MAKER) Anatomical Region Laterality Modality Spine Radiographic Leola ging 10/02/2018 6:04 PM SCALE MODEL MAKER Impressions 10/02/2018 6:05 PM SCALE MODEL MAKER Anterior fusion hardware is in place at C6-C7 with intervertebral graft. Bones and hardware are in good alignment at conclusion of exam. Narrative 10/02/2018 6:05 PM SCALE MODEL MAKER PROCEDURE: XR CERVICAL SPINE 2 OR 3VW 10/02/2018 6:04 PM HISTORY: Other cervical disc displacement, high cervical region. COMPARISON: None Procedure Note Jay Buckner MD - 10/02/2018 PROCEDURE: XR CERVICAL SPINE 2 OR 3VW 10/02/2018 6:04 PM HISTORY: Other cervical disc displacement, high cervical region. COMPARISON: None IMPRESSION Anterior fusion hardware is in place at C6-C7 with intervertebral graft. Bones and hardware are in good alignment at conclusion of exam. Chris Kay MD DIAGNOSTIC IMAGING O RDERABLES * GROSS + MICRO EXAM (ILL) (10/02/2018 3:14 PM SCALE MODEL MAKER) Only the most recent of2 resultswithin the time period is included. Case Report Surgical Pathology Report ? Case: [id number] ? Authorizing Provider: ??Chris Kay MD ?Collected: ? 10/02/2018 03:14 PM ? Ordering Location: ? [facility] ? Received: ?10/03/2018 06:56 AM ? Pathologist: ? Julian Alexis MD ? Specimen: ?Disc Tissue, C3-4;C6-7 ? 10/05/2018 9:19 AM [facility] Final Diagnosis DISC FRAGMENTS, C3-4 AND C6-7, ANTERIOR CERVICAL DISCECTOMY WITH FUSION: - FRAGMENTS OF DEGENERATING FIBROCARTILAGINOUS DISC. - FRAGMENTS OF UNREMARKABLE BONE. - NEGATIVE FOR ACUTE INFLAMMATION AND NEOPLASM. ZOË/jzr 10/05/2018 9:19 AM [facility] Clinical History Herniated nucleus pulposus, C3-4 left; Osteoarthritis of cervical spine. 10/05/2018 9:19 AM [facility] Gross Description Specimen received in formalin labeled Mandie Cotter labeled as ? disc tissue C3-C4; C6-7? , consists of irregular fragments of warren-white to warren-brown soft tissue and cartilage tissue together aggregating 3 cm. There is no abnormal pigmentation. Specimen is submitted in one cassette after decalcification. ESTEBAN/jzr 10/05/2018 9:19 AM [facility] Microscopic Description Microscopic examination is performed and substantiates the above diagnosis. 10/05/2018 9:19 AM [facility] Performed By Performed by [facility] [place]. [address] 10/05/2018 9[facility] Embedded Images 10/05/2018 9:19 AM [facility] Pathology/Cytol ogy SPECIMEN FROM INTERVERTEBRAL DISC / Unknown 10/02/2018 3:14 PM SCALE MODEL MAKER 10/03/2018 6:56 AM SCALE MODEL MAKER Chris Kay MD LAB - PATHOLOGY/CYTO LOGY ORDERABLES Performing Organization Address City/State/[facility] Co de Phone Number [facility] [address] [place], [place] [address] * BLOOD TYPE VERIFICATION (10/02/2018 10:17 AM [facility]) ABO O 10/02/2018 11[facility]07 [facility] Rh Type Positive 10/02/2018 11:07 AM [facility] BLOOD B[facility] Blood Bank BLOOD SPECIMEN / Unknown Lab Venipuncture / Unknown 10/02/2018 10:17 AM [employer] 10/02/2018 10:38 AM [employer] Chris Kay MD LAB - BLOOD BANK ORD ERABLES Performing Organization Address [facility] Co de Phone Number [facility] [address] * MRSA + SA DNA PCR PANEL (09/25/2018 11:27 AM SC[employer]DEL [employer]) MRSA DNA by PCR Negative Negative 09/25/2018 12:47 PM [employer]DEL [employer]ER [facility] Staph aureus PCR Negative Negative 09/25/2018 12:47 PM [employer]DEL [employer]ER [facility] Microbiology SPECIMEN FROM NASAL FOSSAE / Unknown Collection / Unknown 09/25/2018 11:27 AM [employer]DEL [employer]ER 09/25/2018 11:34 AM [employer]DEL [employer]KER Narrative [facility] - 09/25/2018 12:47 PM [employer] Staphylococcus aureus (SA) target DNA not detected. A methicillin-resistant Staphylococcus aureus (MRSA) NEGATIVE; SA NEGATIVE test result does not preclude MRSA or SA nasal colonization. A false negative for MRSA (a result of MRSA NEGATIVE; SA POSITIVE instead of MRSA POSITIVE; SA POSITIVE) could be obtained if both MRSA and SA are present in the sample at an MRSA:SA ratio of 1 X 10 3 or greater. Chris Kay MD LAB - MICROBIOLOGY O RDERABLES Performing Organization Address [facility] de Phone Number [facility] [address] * TYPE + SCREEN PANEL (09/25/2018 11:27 AM SC[employer]DEL [employer]KER) ABO O 09/25/2018 12:47 PM [employer]DEL [employer] [facility] Rh Type Positive 09/25/2018 12:47 PM [employer]DEL [employer]ER [facility] Comment:History checked. Col lect retype. Antibody Screen Negative 09/25/2018 12:47 PM SC[employer]DEL [employer]ER [facility] Blood Bank BLOOD SPECIMEN / Unknown Venipuncture / Unknown 09/25/2018 11:27 AM [employer] 09/25/2018 11:34 AM [employer]DEL [employer]ER Ke Browne MD LAB - BLOOD BANK ORD ERABLES Performing Organization Address City/[facility] Co de Phone Number [facility] [address] * HGB HCT PANEL (09/25/2018 11:27 AM SC[employer]DEL [employer]KER) Hemoglobin 14.8 13.7 - 17.5 gm/dL 09/25/2018 11:39 AM [employer]DEL [employer] Hematocrit 43.6 40.1 - 51.0 % 09/25/2018 11:39 AM [employer]DEL [employer] [facility] Blood BLOOD SPECIMEN / Unknown Venipuncture / Unknown 09/25/2018 11:27 AM [employer]ER 09/25/2018 11:34 AM [employer]DEL [employer]ER Ke Browne MD LAB - HEMATOLOGY ORD ERABLES Performing Organization Address City/[facility]/ZIP Co de Phone Number [facility] [address] * EKG 12-LEAD (09/25/2018 11:22 AM SC[employer]DEL [employer]KER) Pathologist [facility] Ventricular Rate 60 BPM [facility] Atrial Rate 60 BPM [facility] P-R Interval 180 ms [facility] QRS Duration ms 86 ms [facility] Q-T Interval ms 412 ms [facility] QTC Calculation (Bezet) 412 ms [facility] Calculated P [place] 57 degrees [facility] Calculated R [place] 34 degrees [facility] Calculated T [place] 53 degrees [facility] Interpretation EKG Normal sinus rhythm Normal ECG When compared with ECG of 16-NOV-2015 07:47, changes in the configuration of Precordial leads is probably due to lead placement differences Confirmed by MD JOHN, [facility] ([id number]) on 09/26/2018 10:40:54 AM [facility] 09/25/2018 11:2 2 AM [employer]DEL [employer]ER 09/26/2018 10:40 AM [employer]DEL [employer]ER Ke Browne MD ECG ORDERABLES Performing Organization Address City/[facility]/ZIP Co de Phone Number [facility] * NICOTINE + METABOLITES URINE (09/06/2018 4:15 PM CDT) Nicotine Urine <2 ng/mL 09/10/2018 11:35 PM SC[employer]DEL [employer]ER [employer] ([facility]) Comment: Consistent with abstinence from nicotine-containing products for at least 2 weeks. INTERPRETIVE INFORMATION: Nicotine and Metabolites, ?Urine, Quantitative Methodology: Quantitative Liquid Chromatography-Tandem Mass Spectrometry Positive cutoff: Nicotine ??2 ng/mL Cotinine ??5 ng/mL 3-KA-Lxbdqnob 50 ng/mL Nornicotine ? 2 ng/mL Anabasine ? 3 ng/mL For medical purposes only; not valid for forensic use. This test is designed to evaluate recent use of nicotine-containing products. ??Passive and active exposure cannot be discriminated definitively, although a cutoff of 100 ng/mL cotinine is frequently used for surgery qualification purposes. ?? For smoking cessation programs or compliance testing, the absence of expected drug(s) and/or drug metabolite(s) may indicate non-compliance, inappropriate timing of specimen collection relative to drug administration, poor drug absorption, diluted/adulterated urine, or limitations of testing. The concentration value must be greater than or equal to the cutoff to be reported as positive. Anabasine is included as a biomarker of tobacco use, versus nicotine replacement. ??Interpretive questions should be directed to the laboratory. Test developed and characteristics determined by [facility]. See Compliance Statement B: First Opinion.[employer]/CS Performed by [facility], [address] [place] [id number] [email or web address], Thomas Resendiz MD, Lab. Director Nornicotine Urine <2 ng/mL 018 11:35 PM [facility] [employer] ([facility]) 3-Hydroxy Cotinine Urine <50 ng/mL 09/10/2018 11:35 PM [employer] ([facility]) Cotinine Urine <5 ng/mL 09/10/2018 11:35 PM [employer] ([facility]) Anabasine Urine <3 ng/mL 8 11:35 PM [facility] [employer] ([facility]) Urine URINE / Unknown Collection / Unknown 09/06/2018 4:15 PM CDT 09/06/2018 4:18 PM CDT Chris Kay MD LAB - URINE CHEMISTR Y ORDERABLES [facility] ([facility]) [address] [place] [address], [facility] * T4 FREE (04/16/2018 7:47 AM CDT) Only the most recent of2 resultswithin the time period is included. T4 Free 1.2 0.8 - 1.8 ng/dL [facility] Comment: Test Performed at: [email or web address] [address] ??[id number] MICHEL LEO DO,MPH Blood BLOOD SPECIMEN / Unknown 04/16/2018 7:47 AM CDT 04/16/2018 7:48 AM CDT Yosvany Gonsalez MD LAB - CHEMISTRY [facility] [address] [place] [address] * INFLUENZA A+B - POINT OF CARE (AMB) (10/24/2017 4:39 PM [employer]DEL [employer]KER) Pathologist [facility] Influenza A Antigen Rapid Negative Negative Influenza B Antigen Rapid Negative Negative Influenza Internal Control present NEGATIVE - POSITIVE Influenza Lot Number [id number] Influenza Expiration Date 05/2019 Other SPECIMEN FROM NASOPHARYNGEAL STRUCTURE / Unknown 10/24/2017 4:39 PM [employer]DEL [employer]ER Rahel Feliz PA-C LAB - POINT OF CARE ORDERABLES * ECHOCARDIOGRAM STRESS Walking Stress ECHO (11/16/2015 5:06 PM SC[employer]DEL [employer]KER) Narrative [facility] - 11/16/2015 5:06 PM SCALE MODEL [employer]KER [facility] [address] [place], [place] [id number] Exercise Stress Echocardiography Patient: MANDIE COTTER MR #: [id number] : 1955 Age: 60 years Gender: Male Study date: 16-Nov-2015 Status: Outpatient Room: - Ordering Physician: ??Yoly Trinidad DO, [facility] Referring Physician: ??Yosvany Gonsalez MD Missing Persons Investigator: ??Yoly Trinidad DO, MSEE Missing Persons Investigator: ??[facility] Department Manager: ??Obdulia Bowden [facility] Clinical question: Atypical Chest Pain Rest ECG: Normal baseline ECG. Procedure: Treadmill exercise testing was performed, using the Dimitris protocol. Stress and rest echocardiographic evaluation with 2D imaging was performed from multiple acoustic windows for evaluation of ventricular function. Dimitris protocol: HR bpm SBP mmHg DBP mmHg Symptoms ST change Rhythm/conduct Baseline 70 133 84 none none NSR, no ectopy Immediate 148 176 93 -- -- -- IV Definity was administered. Stress summary: Duration of exercise was 10 min and 30 sec. Functional capacity was normal. The heart rate response to stress was normal. There was normal resting blood pressure with an appropriate response to stress. There was no chest pain during stress. The stress test was terminated due to achievement of target heart rate. The stress ECG was normal. There were no stress arrhythmias or conduction abnormalities. Stress 2D echocardiographic results: Baseline: There were no regional wall motion abnormalities. Left ventricular size was normal. Overall left ventricular systolic function was normal. Estimated left ventricular ejection fraction was 50 % . Peak stress: There were no regional wall motion abnormalities. There was an appropriate reduction in left ventricular size. There was an appropriate augmentation in LV function. Summary: ?? - ??Stress results: Duration of exercise was 10 min and 30 sec. There was no chest pain during stress. - ??ECG conclusions: The stress ECG was normal. - ??Impressions and recommendations: No echocardiographic evidence for inducible myocardial ischemia. - ??Baseline: There were no regional wall motion abnormalities. Estimated left ventricular ejection fraction was 50 % . - ??Peak stress: There were no regional wall motion abnormalities. Impressions: No echocardiographic evidence for inducible myocardial ischemia. All images and data generated for this procedure were personally reviewed by me. Prepared and Electronically Authenticated Yoly Trinidad DO, MSEE 16-Nov-2015 17:09:40 Procedure Note Unknown, Provider - 11/16/2015 [facility] [address] [place] [address] Exercise Stress Echocardiography Patient: MANDIE COTTER MR #: [id number] : 1955 Age: 60 years Gender: Male Study date: 16-Nov-2015 Status: Outpatient Room: - Ordering Physician: Yoly Trinidad DO, MSEE Referring Physician: Yosvany Gonsalez MD Missing Persons Investigator: Yoly Trinidad DO, MSEE Missing Persons Investigator: Srinivasa [facility] Department Manager: Obdulia Bowden RDCS Clinical question: Atypical Chest Pain Rest ECG: Normal baseline ECG. Procedure: Treadmill exercise testing was performed, using the Bruceprotocol. Stress and rest echocardiographic evaluation with 2D imaging wasperformed from multiple acoustic windows for evaluation of ventricular function. Dimitris protocol: HR bpm SBP mmHg DBP mmHg Symptoms ST change Rhythm/conduct Baseline 70 133 84 none none NSR, no ectopy Immediate 148 176 93 -- -- -- IV Definity was administered. Stress summary: Duration of exercise was 10 min and 30 sec. Functional capacity was normal. The heart rate response to stress was normal. Therewas normal resting blood pressure with an appropriate response to stress.There was no chest pain during stress. The stress test was terminated due to achievement of target heart rate. The stress ECG was normal. There were no stress arrhythmias or conduction abnormalities. Stress 2D echocardiographic results: Baseline: There were no regional wall motion abnormalities. Leftventricular size was normal. Overall left ventricular systolic function was normal. Estimated left ventricular ejection fraction was 50 % . Peak stress: There were no regional wall motion abnormalities. There neal appropriate reduction in left ventricular size. There was an appropriate augmentation in LV function. Summary: - Stress results: Duration of exercise was 10 min and 30 sec. There was no chest pain during stress. - ECG conclusions: The stress ECG was normal. - Impressions and recommendations: No echocardiographic evidence for inducible myocardial ischemia. - Baseline: There were no regional wall motion abnormalities. Estimatedleft ventricular ejection fraction was 50 % . - Peak stress: There were no regional wall motion abnormalities. Impressions: No echocardiographic evidence for inducible myocardialischemia. All images and data generated for this procedure were personally reviewedby me. Prepared and Electronically Authenticated Yoly Trinidad DO, MSEE 16-Nov-2015 17:09:40 Yoly Trinidad DO ECHO ORDERABLES [facility] * ECG STRESS TRACING (11/16/2015 7:46 AM SCALE MODEL MAKER) [facility] Signature Stress Test Summary For full formatted report, please see the report link in the order. Acquisition Time: 2015-11-16 ??07:46:37 Total Exercise Time: 00:10:30 Test Indications: Chest pain Medications: Protocol: DIMITRIS ? Max HR: 148 BPM ??93% of ??Pred: 159 BPM Max BP: 176/093 mmHG Max Work Load: 13.4 METS Reason for Termination: Target Heart Rate Achieved Resting ECG: normal sinus rhythm Functional Capacity: Excellent HR Response to Exercise: appropriate BP Resoonse to Exercise: normal resting BP - appropriate response Chest Pain: none Arrhythmias: none ST Changes: none Overall Impression: Normal stress test Diagnosis: 1. Normal RAGHAV 2. Able to walk on treadmill for 10.5 mins, achieved 14 METS Confirmed by Yoly Trinidad ([id number]) on 11/16/2015 9:12:22 AM Attending Physician: KWADWO ??DOYOLY Referred By: OLI ?Overread By: Yoly Trinidad [facility] 11/16/2015 7:46 AM [employer]DEL [employer]ER 11/16/2015 9:12 AM [employer]DEL [employer]KER Yoly Trinidad DO CARDIAC SERVICES ORD ERABLES [facility] * XR CHEST PA AND LATERAL (10/15/2014 4:58 PM SC[employer]DEL MAKER) Anatomical Region Laterality Modality Chest Radiographic Leola ging 10/15/2014 5:06 PM [employer]DEL [employer]KER Narrative 10/15/2014 5:43 PM [employer]DEL [employer]KER TWO VIEWS OF THE CHEST October 15, 2014 Comparison studies: No previous available Clinical history: Cough FINDINGS AND IMPRESSION: 1. Cardiomediastinal silhouette is not enlarged. Minimal atherosclerotic aorta. 2. Lungs are clear. No pleural effusion or pneumothorax. 3. Minimal scoliosis of the superior thoracic spine. Procedure Note Moncho Cheng MD - 10/15/2014 TWO VIEWS OF THE CHEST October 15, 2014 Comparison studies: No previous available Clinical history: Cough FINDINGS AND IMPRESSION: 1. Cardiomediastinal silhouette is not enlarged. Minimal atherosclerotic aorta. 2. Lungs are clear. No pleural effusion or pneumothorax. 3. Minimal scoliosis of the superior thoracic spine. Yosvany Gonsalez MD DIAGNOSTIC IMAGING O RDERABLES * LIPID PROFILE W LDL/HDL (PO REF LAB) (04/03/2013 7:47 AM CDT) Cholesterol 158 100 - 199 mg/dL [facility] ACCOUNT BILL Triglycerides 74 0 - 149 mg/dL [facility] ACCOUNT BILL HDL Cholesterol 54 >39 mg/dL [facility] ACCOUNT BILL Comment: According to ATP-III Guidelines, HDL-C >59 mg/dL is considered a negative risk factor for CHD. VLDL Calculated 15 5 - 40 mg/dL [facility] ACCOUNT BILL LDL Calculated 89 0 - 99 mg/dL [facility] ACCOUNT BILL Comment NOT NEEDED [facility] ACCOUNT BILL Comment:Ancillary determined the test is not needed LDL/HDL Ratio 1.6 0.0 - 3.6 ratio units [facility] ACCOUNT BILL 04/03/2013 7:47 AM CDT 04/03/2013 1:01 PM CDT Narrative Resulting Agency Comment [facility] [address] ??[facility] [id number] Yosvany Gonsalez MD LAB - CHEMISTRY VIVIANA AD[facility] Organization Address City/State/ZIP Co de Phone Number [facility] ACCOUNT BILL Care Teams Assistant Tennis Professional Relationship Specialty Start Date End Date Addison Joy MD [address] [place] [id number] PCP - General Internal Medicine 09/04/19
--- OUTSIDE RECORDS SUMMARY | 2024-11-02 07:27 | XMS_ITS | Encounter Summary ---
Author Organization [facility] Address [address] [place] [address] Care Team Providers Care Nurse Executive Name Role Phone Sunshine Yosvany Marcial MD Primary Care Provider [phone] Reason for Visit * Reason Comments Sinus Problem x 5 days Runny Nose Cough Encounter Details Date Type Department Care Team (Late st Contact Info) Description 07/26/2019 4:15 PM CDT Office Visit [facility] [address] [phone] Provider1, [facility] Acute bronchitis, unspecified organism (Primary Dx); Sore throat Social History Tobacco Use Types Packs/Day Years Used Date Smoking Tobacco: Every Day Cigarettes Last attempted to quit: 08/07/2018 Smokeless Tobacco: Never Alcohol Use Standard [...] (161 lb) 07/26/2019 4:27 PM CDT Height - - Body Mass Index 25.22 06/03/2019 4:30 PM CDT documented in this [...] No 10/02/2018 documented as of this encounter Patient Instructions * Patient Instructions* Tiffanie Hernandez, MD PEDIATRIC ALLERGIST-PUBLIC ACCOUNTANT - 07/26/2019 4:37 PM CDT Images from the original note were not included. Patient Education Acute Bronchitis HOME HEALTH ATTENDANT: Acute bronchitis is swelling and irritation in the air passages of your lungs. This irritation may cause you to cough or have other breathing problems. Acute bronchitis often starts because of another illness, such as a cold or the flu. The illness spreads from your nose and throat to your windpipeand airways. Bronchitis is often called a chest cold. Acute bronchitis lasts about 3 to 6 weeks andis usually not a serious illness. Your cough can last for several weeks. You may have any of the following symptoms: ?? A cough with sputum that may be clear, yellow, or green ?? Feeling more tired than usual, and body aches ?? A fever and chills ?? Wheezing when you breathe ?? A tight chest or pain when you breathe or cough Seek care immediately if: ?? You cough up blood. ?? Your lips or fingernails turn blue. ?? You feel like you are not getting enough air when you breathe. Contact your healthcare provider if: ?? You have a fever. ?? Your breathing problems do not go away or get worse. ?? Your cough does not get better within 4 weeks. ?? You have questions or concerns about your condition or care. Self-care: ?? Get more rest. Rest helps your body to heal. Slowly start to do more each day. Rest when you feel it is needed. ?? Avoid irritants in the air. Avoid chemicals, fumes, and dust. Wear a face mask if you must workaround dust or fumes. Stay inside on days when air pollution levels are high. If you have allergies, stay inside when pollen counts are high. Do not use aerosol products, such as spray-on deodorant, bug spray, and hair spray. ?? Do not smoke or be around others who smoke. Nicotine and other chemicals in cigarettes and cigars damages the cilia that move mucus out of your lungs. Ask your healthcare provider for information if you currently smoke and need help to quit. E-cigarettes or smokeless tobacco still contain nicotine. Talk to your healthcare provider before you use these products. ?? Drink liquids as directed. Liquids help keep your air passages moist and help you cough up mucus. You may need to drink more liquids when you have acute bronchitis. Ask how much liquid to drink each day and which liquids are best for you. ?? Use a humidifier or vaporizer. Use a cool mist humidifier or a vaporizer to increase air moisture in your home. This may make it easier for you to breathe and help decrease your cough. Prevent acute bronchitis by doing the following: ?? Get the vaccinations you need. Ask your healthcare provider if you should get vaccinated againstthe flu or pneumonia. ?? Prevent the spread of germs. You can decrease your risk of acute bronchitis and other illnesses by doing the following: ? Wash your hands often with soap and water. Carry germ-killing hand lotion or gel with you. You can use the lotion or gel to clean your hands when soap and water are not available. ? Do not touch your eyes, nose, or mouth unless you have washed your hands first. ? Always cover your mouth when you cough to prevent the spread of germs. It is best to cough into atissue or your shirt sleeve instead of into your hand. Ask those around you cover their mouths whenthey cough. ? Try to avoid people who have a cold or the flu. If you are sick, stay away from others as much aspossible. Medicines: Your healthcare provider may give you any of the following: ?? Ibuprofen or acetaminophen are medicines that help lower your fever. They are available without a doctor's order. Ask your healthcare provider which medicine is right for you. Ask how much to takeand how often to take it. Follow directions. These medicines can cause stomach bleeding if not taken correctly. Ibuprofen can cause kidney damage. Do not take ibuprofen if you have kidney disease, anulcer, or allergies to aspirin. Acetaminophen can cause liver damage. Do not take more than 4,000 milligrams in 24 hours. ?? Decongestants help loosen mucus in your lungs and make it easier to cough up. This can help you breathe easier. ?? Cough suppressants decrease your urge to cough. If your cough produces mucus, do not take a cough suppressant unless your healthcare provider tells you to. Your healthcare provider may suggest that you take a cough suppressant at night so you can rest. ?? Inhalers may be given. Your healthcare provider may give you one or more inhalers to help you breathe easier and cough less. An inhaler gives your medicine to open your airways. Ask your healthcare provider to show you how to use your inhaler correctly. Follow up with your healthcare provider as directed: Write down questions you have so you will remember to ask them during your follow-up visits. ?? Copyright [employer] 2019 Information is for End User's use only and may not be sold, redistributed or otherwise used for commercial purposes. All illustrations and images included in CareNotes?? are the copyrighted property of [employer] or [employer] The above information is an motel maid only. It is not intended as medical advice for individual conditions or treatments. Talk to your doctor, nurse or pharmacist before following any medical regimen to see if it is safe and effective for you. documented in this encounter Progress Notes * Tiffanie Hernandez APRN-CNP - 07/26/2019 4:42 PM CDT Images from the original note were not included. 07/26/2019 PCP: Yosvany Gonsalez MD CC: Chief Complaint Patient presents with ??? Sinus Problem x 5 days ??? Runny Nose ??? Cough . HPI: Natan Patel is a 64 year old male [facility] Congestion for 5 days, cough getting worse. Sore throat worse today. Outpatient Medications Prior to Visit Medication Sig Dispense Refill ??? aspirin (ASPIRIN) 81 MG chew tablet Take 81 mg by mouth once daily ??? Cholecalciferol (VITAMIN D) 2000 UNITS CAPS capsule Take 2,000 Units by mouth once daily ??? [place]-3 Fatty Acids (FISH OIL) 1000 MG capsule Take by mouth once daily ??? oxyCODONE-acetaminophen (PERCOCET) 7.5-325 MG tablet Take 1-2 tablets by mouth every 4 hours asneeded for Pain (for moderate to severe pain) (Patient not taking: Reported on 07/26/2019) 120 tablet 0 ??? pantoprazole EC (PROTONIX) 40 MG tablet Take 1 tablet by mouth once daily 90 tablet 3 ??? pravastatin (PRAVACHOL) 80 MG tablet Take 1 tablet by mouth at bedtime 90 tablet 3 ??? vitamin E (TOCOPHERYL) 400 UNIT tablet Take 400 Units by mouth once daily No facility-administered medications prior to visit. Past Medical History: Diagnosis Date ??? Allergy [...] ??? OTHER SURGERY dental extraction Social History Tobacco Use Smoking Status Current Every Day Smoker ??? Packs/day: 0.50 ??? Types: Cigarettes ??? Last attempt to quit: 08/07/2018 ??? Years since quittin.9 Smokeless Tobacco Never Used Social History Substance and Sexual Activity Drug Use No Allergies Allergen Reactions ??? Morphine Itching Family History Problem Relation Age of Onset ??? Hypertension Mother ??? Heart Disease Father ??? Cancer - Other Father throat cancer Review of Systems: Review of Systems Constitutional: Positive for malaise/fatigue. Negative for fever. HENT: Positive for congestion and sore throat. Negative for ear pain. Eyes: Negative for pain, discharge and redness. Respiratory: Positive for cough and sputum production. Musculoskeletal: Negative. Neurological: Negative. Psychiatric/Behavioral: Negative. Exam: BP 134/72 Pulse 84 Temp 99.2 ??F (37.3 ??C) (Oral) Resp 20 Wt 73 kg (161 lb) SpO2 97% BMI 25.22 kg/m?? Physical Exam Constitutional: He is oriented to person, place, and time and well-developed, well-nourished, and in no distress. HENT: Head: Normocephalic and atraumatic. Right Ear: Hearing and external ear normal. Tympanic membrane is erythematous and bulging. Left Ear: Hearing and external ear normal. Tympanic membrane is erythematous and bulging. Mouth/Throat: Posterior oropharyngeal edema and posterior oropharyngeal erythema (marked) present. Eyes: Pupils are equal, round, and reactive to light. Conjunctivae and EOM are normal. Neck: Normal range of motion. Neck supple. Cardiovascular: Normal rate, regular rhythm, normal heart sounds and intact distal pulses. Pulmonary/Chest: Effort normal. He has rhonchi in the right upper field. Neurological: He is alert and oriented to person, place, and time. Gait normal. Skin: Skin is warm and dry. Psychiatric: Mood, memory, affect and judgment normal. Office Visit on 07/26/19 STREP A SCREEN - POINT OF CARE (AMB) [facility] Result Value Ref Range Strep A Rapid POCT Negative Negative Strep A Rapid Screen Internal Control POCT Present Plan Impression: ICD-10-CM 1. Acute bronchitis, unspecified organism J20.9 2. Sore throat J02.9 STREP A SCREEN - POINT OF CARE (AMB) [facility] Treatment: Orders Placed This Encounter ??? STREP A SCREEN - POINT OF CARE (AMB) [facility] ??? azithromycin (ZITHROMAX) 250 MG tablet Sig: Take 2 tablets now, then 1 tablet daily for 4 days. Dispense: 6 tablet Refill: 0 ??? predniSONE (DELTASONE) 10 MG tablet Sig: Take 1 tablet by mouth as directed 4 tab day1, then3 tabs for 3 days, then 2 tabs for 3 days ,then1 tab for 3 days Dispense: 22 tablet Refill: 0 ??? benzonatate (TESSALON) 100 MG capsule Sig: Take 1 capsule by mouth 3 times daily as needed for Cough Dispense: 30 capsule Refill: 0 Patient Instructions Patient Education Acute Bronchitis HOME HEALTH ATTENDANT: Acute bronchitis is swelling and irritation in the air passages of your lungs. This irritation may cause you to cough or have other breathing problems. Acute bronchitis often starts because of another illness, such as a cold or the flu. The illness spreads from your nose and throat to your windpipeand airways. Bronchitis is often called a chest cold. Acute bronchitis lasts about 3 to 6 weeks andis usually not a serious illness. Your cough can last for several weeks. You may have any of the following symptoms: ?? A cough with sputum that may be clear, yellow, or green ?? Feeling more tired than usual, and body aches ?? A fever and chills ?? Wheezing when you breathe ?? A tight chest or pain when you breathe or cough Seek care immediately if: ?? You cough up blood. ?? Your lips or fingernails turn blue. ?? You feel like you are not getting enough air when you breathe. Contact your healthcare provider if: ?? You have a fever. ?? Your breathing problems do not go away or get worse. ?? Your cough does not get better within 4 weeks. ?? You have questions or concerns about your condition or care. Self-care: ?? Get more rest. Rest helps your body to heal. Slowly start to do more each day. Rest when you feel it is needed. ?? Avoid irritants in the air. Avoid chemicals, fumes, and dust. Wear a face mask if you must work around dust or fumes. Stay inside on days when air pollution levels are high. If you have allergies,stay inside when pollen counts are high. Do not use aerosol products, such as spray-on deodorant, bug spray, and hair spray. ?? Do not smoke or be around others who smoke. Nicotine and other chemicals in cigarettes and cigars damages the cilia that move mucus out of your lungs. Ask your healthcare provider for information if you currently smoke and need help to quit. E-cigarettes or smokeless tobacco still contain nicotine. Talk to your healthcare provider before you use these products. ?? Drink liquids as directed. Liquids help keep your air passages moist and help you cough up mucus. You may need to drink more liquids when you have acute bronchitis. Ask how much liquid to drink each day and which liquids are best for you. ?? Use a humidifier or vaporizer. Use a cool mist humidifier or a vaporizer to increase air moisture in your home. This may make it easier for you to breathe and help decrease your cough. Prevent acute bronchitis by doing the following: ?? Get the vaccinations you need. Ask your healthcare provider if you should get vaccinated againstthe flu or pneumonia. ?? Prevent the spread of germs. You can decrease your risk of acute bronchitis and other illnesses by doing the following: ? Wash your hands often with soap and water. Carry germ-killing hand lotion or gel with you. You can use the lotion or gel to clean your hands when soap and water are not available. ? Do not touch your eyes, nose, or mouth unless you have washed your hands first. ? Always cover your mouth when you cough to prevent the spread of germs. It is best to cough into atissue or your shirt sleeve instead of into your hand. Ask those around you cover their mouths whenthey cough. ? Try to avoid people who have a cold or the flu. If you are sick, stay away from others as much aspossible. Medicines: Your healthcare provider may give you any of the following: ?? Ibuprofen or acetaminophen are medicines that help lower your fever. They are available without a doctor's order. Ask your healthcare provider which medicine is right for you. Ask how much to takeand how often to take it. Follow directions. These medicines can cause stomach bleeding if not taken correctly. Ibuprofen can cause kidney damage. Do not take ibuprofen if you have kidney disease, anulcer, or allergies to aspirin. Acetaminophen can cause liver damage. Do not take more than 4,000 milligrams in 24 hours. ?? Decongestants help loosen mucus in your lungs and make it easier to cough up. This can help you breathe easier. ?? Cough suppressants decrease your urge to cough. If your cough produces mucus, do not take a cough suppressant unless your healthcare provider tells you to. Your healthcare provider may suggest that you take a cough suppressant at night so you can rest. ?? Inhalers may be given. Your healthcare provider may give you one or more inhalers to help you breathe easier and cough less. An inhaler gives your medicine to open your airways. Ask your healthcare provider to show you how to use your inhaler correctly. Follow up with your healthcare provider as directed: Write down questions you have so you will remember to ask them during your follow-up visits. ?? Copyright [employer] 2019 Information is for End User's use only and may not be sold, redistributed or otherwise used for commercial purposes. All illustrations and images included in CareNotes?? are the copyrighted property of [employer] or [employer] The above information is an motel maid only. It is not intended as medical advice for individual conditions or treatments. Talk to your doctor, nurse or pharmacist before following any medical regimen to see if it is safe and effective for you. There are no discontinued medications. Current Outpatient Medications Medication Sig Dispense Refill ??? aspirin (ASPIRIN) 81 MG chew tablet Take 81 mg by mouth once daily ??? azithromycin (ZITHROMAX) 250 MG tablet Take 2 tablets now, then 1 tablet daily for 4 days. 6 tablet 0 ??? benzonatate (TESSALON) 100 MG capsule Take 1 capsule by mouth 3 times daily as needed for Cough30 capsule 0 ??? Cholecalciferol (VITAMIN D) 2000 UNITS CAPS capsule Take 2,000 Units by mouth once daily ??? [place]-3 Fatty Acids (FISH OIL) 1000 MG capsule Take by mouth once daily ??? oxyCODONE-acetaminophen (PERCOCET) 7.5-325 MG tablet Take 1-2 tablets by mouth every 4 hours asneeded for Pain (for moderate to severe pain) (Patient not taking: Reported on 07/26/2019) 120 tablet 0 ??? pantoprazole EC (PROTONIX) 40 MG tablet Take 1 tablet by mouth once daily 90 tablet 3 ??? pravastatin (PRAVACHOL) 80 MG tablet Take 1 tablet by mouth at bedtime 90 tablet 3 ??? predniSONE (DELTASONE) 10 MG tablet Take 1 tablet by mouth as directed 4 tab day1, then3 tabs for 3 days, then 2 tabs for 3 days , then1 tab for 3 days 22 tablet 0 ??? vitamin E (TOCOPHERYL) 400 UNIT tablet Take 400 Units by mouth once daily No current facility-administered medications for this visit. Follow up : No follow-ups on file. TIFFANY Esparza documented in this encounter Plan of Treatment Not on file documented as of this encounter Procedures Procedure Name Priority Date/Time Associated Diagnosis Comments STREP A SCREEN - POINT OF CARE (AMB) [facility] Routine 07/26/2019 4:44 PM CDT Sore throat documented in this encounter Results * STREP A SCREEN - POINT OF CARE (AMB) [facility] (07/26/2019 4:44 PM CDT) Strep A Rapid POCT Negative Negative Strep A Rapid Screen Internal Control POCT Present Throat ENTIRE THROAT (SURFACE REGION OF NECK) / Unknown 07/26/2019 4:44 PM CDT Tiffanie Wilson David MD PEDIATRIC ALLERGIST-PUBLIC ACCOUNTANT LAB - POINT OF C ARE ORDERABLES documented in this encounter Visit Diagnoses Diagnosis Acute bronchitis, unspecified organism- Primary Sore throat Acute pharyngitis documented in this encounter Care Teams Nurse Executive Relationship Specialty Start Date End Date Yosvany Gonsalez MD [address] [place] [phone] PCP - General Internal Medicine 04/08/13 09/03/19 documented as of this encounter
--- OUTSIDE RECORDS SUMMARY | 2024-11-02 07:27 | XMS_ITS | Referral Summary ---
Author Organization [facility] Address [address] [place] [address] Care Team Providers Care Forensic Technician Name Role Phone Addison Joy MD Primary Care Provider [phone] Source Comments [facility],non-owned Affiliates and Associated Physician Practices is amultiple site organization consisting of ambulatory clinics and hospital sitesin [place], [place], [place] and [place]. This disclosure is being madepursuant to the Care Everywhere program and may not contain all information available regarding this patient. Last updated 18.[facility] divorce360 Allergies Active Allergy Reactions Criticality Noted Date [...] 81 mg by mouth once daily Active [place]-3 Fatty Acids (FISH OIL) 1000 MG capsule [...] ML (IIV4) 10/03/2018,10/19/2016,10/16/2015 Pneumococcal Pcv13 Conj 10/20/2016,10/16/2016 Social History Tobacco Use Types Packs/Day Years [...] Mass Index 25.22 06/03/2019 4:30 PM CDT Functional Status Functional Status Response Date of [...] person have difficulty concentrating/remembering/making decisions? No 10/02/2018 Plan of Treatment Not on file Medical Devices Implanted Type Area Line Maintenance Technician Device Identifier Shelf Expiration Date Model / Serial / Lot Lukas Bone Void .5ml Dbx Algrf Frzdr Ptty - [id number] Implanted:Qty : 1 on 10/02/2018 by Chris Kay MD at [facility] Cervical Musculoskeletal Transplant Foundati 05/25/2020 [id number] / [id number] / Spcr Algrf [id number] Ccs Prll Spne Ayo - [id number] Implanted:Qty : 1 on 10/02/2018 by Chris Kay MD at [facility] Cervical Musculoskeletal Transplant Foundati 06/14/2021 [id number] / [id number] / Description:C6-C7 Graft Bone Vivigen Ayo Cnc Dmnr 1cc - [id number] Implanted:Qty : 1 on 10/02/2018 by Chris Kay MD at [facility] Cervical Lifenet 08/07/2019 BL-[id number] 01 / [id number] / Plate Bnt Grv Prebnt [id number] 1 Lvl 1 - [id number] Implanted:Qty : 1 on 10/02/2018 by Chris Kay MD at [facility] Cervical Synthes Spine 450.552 / [id number] / Description:C6-7 Screw 4.5mm 18mm Spne Crv Ant Slf-Tap Implanted:Qty : 4 on 10/02/2018 by Chris Kay MD at [facility] Cervical Synthes Spine 8 / / Description:C6-7 Spcr Algrf [id number] Prll Spne Crv Ayo - [id number] Implanted:Qty : 1 on 10/02/2018 by Chris Kay MD at [facility] Cervical Musculoskeletal Transplant Foundati 02/07/2021 [id number] / [id number] / Screw 4.5mm 16mm Spne Crv Ant Slf-Tap Implanted:Qty : 4 on 10/02/2018 by Chris Kay MD at [facility] Cervical Synthes Spine 6 / / Description:C3-4 Vectra Plate Implanted:Qty : 1 on 10/02/2018 by Chris Kay MD at [facility] Cervical 4 / [id number] / Procedures Procedure Name Priority Date/Time Associated Diagnosis Comments COMPREHENSIVE METABOLIC PANEL 02/15/2019 7:51 AM CDT from Last 3 Months or Most Recently Relevant to Health Maintenance Results * COMPREHENSIVE METABOLIC PANEL (02/15/2019 7:51 AM CDT) [facility] [address] Glucose 95 65 - 99 mg/dL [facility] Comment: ? Fasting reference interval BUN 14 7 - 25 mg/dL [facility] Creatinine 0.74 0.70 - 1.25 mg/dL [facility] Comment: For patients >49 years of age, the reference limit for Creatinine is approximately 13% higher for people identified as -[place]. eGFR by MDRD 97 > OR = [...] 46 U/L [facility] Comment: Test Performed at: [email or web address] ??[id number] MICHEL LEO DO,MPH 02/15/2019 7:51 AM CDT 02/15/2019 7:52 AM CDT Yosvany Gonsalez MD LAB - CHEMISTRY VIVIANA [facility] Organization Address City/State/[facility] Co de Phone Number [facility] [address] [place] [address] from Last 3 Months or Most Recently Relevant to Health Maintenance Administered Medications Advance Directives * Full Code (Latest Code Status on File) Date Activated Date Inactivated Comments 10/02/2018 7:29 PM 10/03/2018 4:57 PM Care Teams Forensic Technician Relationship Specialty Start Date End Date Addison Joy MD [address] [place] [id number] PCP - General Internal Medicine 09/04/19
--- OUTSIDE RECORDS SUMMARY | 2024-11-02 07:28 | XMS_ITS | Encounter Summary ---
Author Organization [facility] Address [address] [place] [address] Care Team Providers Care Compensation Consulting Manager Name Role Phone Yosvany Gonsalez MD Primary Care Provider [phone] Reason for Visit * Reason Onset Date Comments MEDICATION REFILL 10/02/2018 Encounter Details Date Type Department Care Team (Late st Contact Info) Description 10/02/2018 Refill [facility] Medical [facility] - Family Medicine [address] [phone] Yosvany Gonsalez MD [address] [place] [phone] MEDICATION REFILL Social History Tobacco Use Types Packs/Day Years [...] on file documented as of this encounter Plan of Treatment Not on file documented as of this encounter Visit Diagnoses Not on filedocumented in this encounter Care Teams Compensation Consulting Manager Relationship Specialty Start Date End Date Yosvany Gonsalez MD [address] [place] [address] [place] [phone] PCP - General Internal Medicine 04/08/13 09/03/19 documented as of this encounter
--- OUTSIDE RECORDS SUMMARY | 2024-11-02 07:28 | XMS_ITS | Encounter Summary ---
Author Organization [facility] Address [address] [place] [address] Care Team Providers Care Well Point Pumping Supervisor Name Role Phone Yosvany Gonsalez MD Primary Care Provider [phone] Reason for Visit * Reason Onset Date Comments Medication Request 11/09/2018 Encounter Details Date Type Department Care Team (Late st Contact Info) Description 11/09/2018 Refill [facility] Medical [facility] - Family Medicine [address] [place] [phone] Yosvany Gonsalez MD [address] [place] [phone] Medication Request Social History Tobacco Use Types Packs/Day Years [...] encounter Miscellaneous Notes * Telephone Encounter - Olga Lidia Giles - 11/09/2018 12:51 PM CST Patient requesting a 90 day supply of Pravastatin 80mg be sent to his mail order pharmacy. He take one at bedtime. T SERVICES LEAD documented in this encounter Plan of Treatment Not on file documented as of this encounter Visit Diagnoses Not on filedocumented in this encounter Care Teams Well Point Pumping Supervisor Relationship Specialty Start Date End Date Yosvany Gonsalez MD [address] [place] [phone] PCP - General Internal Medicine 04/08/13 09/03/19 documented as of this encounter
--- OUTSIDE RECORDS SUMMARY | 2024-11-02 07:28 | XMS_ITS | Encounter Summary ---
Author Organization [facility] Address [address] [place] [address] Care Team Providers Care Geneticist Name Role Phone Yosvany Gonsalez MD Primary Care Provider [phone] Reason for Visit * Reason Onset Date Comments MEDICATION REFILL 10/03/2018 Encounter Details Date Type Department Care Team (Late st Contact Info) Description 10/03/2018 Refill [facility] Medical [facility] - Family Medicine [address] [place] [phone] Yosvany Gonsalez MD [address] [place] [phone] MEDICATION REFILL Social History Tobacco Use Types [...] encounter Miscellaneous Notes * Telephone Encounter - Wilma Lomeli LPN - 10/03/2018 12:26 PM CST Had to call and verbally cancel the [address] [facility] and send to [facility] per patient's 's request ILE FARMER documented in this encounter Plan of Treatment Not on file documented as of this encounter Visit Diagnoses Not on filedocumented in this encounter Care Teams Geneticist Relationship Specialty Start Date End Date Yosvany Gonsalez MD [address] [place] [phone] PCP - General Internal Medicine 04/08/13 09/03/19 documented as of this encounter
--- OUTSIDE RECORDS SUMMARY | 2024-11-02 07:28 | XMS_ITS | Encounter Summary ---
Author Organization [facility] Address [address] [place] [address] Care Team Providers Care Underground Electrician Name Role Phone Yosvany Gonsalez MD Primary Care Provider [phone] Reason for Visit * Reason Onset Date Comments MEDICATION REFILL 10/03/2018 Encounter Details Date Type Department Care Team (Late st Contact Info) Description 10/03/2018 Refill [facility] Medical [facility] - Family Medicine [address] [place] [phone] Yosvany Gonsalez MD [address] [place] [phone] MEDICATION REFILL Social History Tobacco Use Types [...] on filedocumented in this encounter Care Teams Underground Electrician Relationship Specialty Start Date End Date Yosvany Gonsalez MD [address] [place] [phone] PCP - General Internal Medicine 04/08/13 09/03/19 documented as of this encounter
--- OUTSIDE RECORDS SUMMARY | 2024-11-02 07:28 | XMS_ITS | Encounter Summary ---
Author Organization [facility] Address [address] [place] [address] Care Team Providers Care Granite Polisher Apprentice Name Role Phone Yosvany Gonsalez MD Primary Care Provider [phone] Reason for Visit * Reason Onset Date Comments Question 10/04/2018 Encounter Details Date Type Department Care Team (Late st Contact Info) Description 10/04/2018 Telephone [facility] - Family Medicine [address] [phone] Yosvany Gonsalez MD [address] [place] [phone] Question Social History Tobacco Use Types Packs/Day Years [...] Telephone Encounter - Wilma Lomeli LPN - 10/04/2018 3:57 PM CST Sent to new pharmacy per request and protocol [facility] * Telephone Encounter - Aamir Campbell I - 10/04/2018 3:53 PM CST Vaishali called & reported that Chris is needing the following prescriptions sent in: Vytorin (She would like us to alejandro no generic on this one) Pantoprazole She requested these be faxed to [facility] documented in this encounter Plan of Treatment Not on file documented as of this encounter Visit Diagnoses Not on filedocumented in this encounter Care Teams Granite Polisher Apprentice Relationship Specialty Start Date End Date Yosvany Gonsalez MD [address] [place] [phone] PCP - General Internal Medicine 04/08/13 09/03/19 documented as of this encounter
--- OUTSIDE RECORDS SUMMARY | 2024-11-02 07:28 | XMS_ITS | Encounter Summary ---
Author Organization [facility] Address [address] [place] [address] Care Team Providers Care Block Sawyer Name Role Phone Yosvany Gonsalez MD Primary Care Provider [phone] Reason for Visit * Reason Onset Date Comments Medication Issue 10/19/2018 Encounter Details Date Type Department Care Team (Late st Contact Info) Description 10/19/2018 Telephone [facility] - Family Medicine [address] [phone] Yosvany Gonsalez MD [address] [place] [phone] Medication Issue Social History Tobacco Use Types Packs/Day Years [...] Telephone Encounter - Wilma Lomeli LPN - 10/19/2018 4:38 PM CST Called and discussed with patient - patient has upcoming appt at end of nov - sent 30 per patient request will discuss with [facility] at [facility] Discussed with patient and a[facility] at [facility] SEWER * Telephone Encounter - Yosvany Gonsalez MD - 10/19/2018 3:05 PM CST Would strongly recommend trying a gentler statin like pravastatin 80 mg daily number 90 with 1 refill and follow-up SEWER * Telephone Encounter - Wilma Lomeli LPN - 10/19/2018 2:57 PM CST Patient came in and stated he needed emergency supply for his name brand vytorin. As he was out until his mail order was able to be sent to him. We sent temporary supply to [facility] for him Unfortunately, he stated that it was a 300 dollar per month co-pay with his new insurance. He was the one that asked for the name brand only due to not tolerating the generic (per patient report) [facility] was asking if there was something else the patient could take or if he could do something like lovaza or? Please advise. SEWER documented in this encounter Plan of Treatment Not on file documented as of this encounter Visit Diagnoses Not on filedocumented in this encounter Care Teams Block Sawyer Relationship Specialty Start Date End Date Yosvany Gonsalez MD [address] [place] [phone] PCP - General Internal Medicine 04/08/13 09/03/19 documented as of this encounter
--- OUTSIDE RECORDS SUMMARY | 2024-11-02 07:28 | XMS_ITS | Encounter Summary ---
Author Organization [facility] Address [address] [place] [address] Care Team Providers Care Gunner'S Mate G Name Role Phone Yosvany Gonsalez MD Primary Care Provider [phone] Reason for Visit * Reason Onset Date Comments Medication Issue 10/19/2018 Encounter Details Date Type Department Care Team (Late st Contact Info) Description 10/19/2018 Telephone [facility] - Family Medicine [address] [phone] Yosvany Gonsalez MD [address] [place] [phone] Medication Issue Social History Tobacco Use Types [...] Encounter - Wilma Lomeli LPN - 10/19/2018 2:29 PM CST CALLED in per protocol/sent to [facility] TAL PRODUCTION OPERATOR * Telephone Encounter - Olga Lidia Giles - 10/19/2018 2:04 PM CST Brand name of the Vytorin. Must be brand name only. TAL PRODUCTION OPERATOR documented in this encounter Plan of Treatment Not on file documented as of this encounter Visit Diagnoses Not on filedocumented in this encounter Care Teams Gunner'S Mate G Relationship Specialty Start Date End Date Yosvany Gonsalez MD [address] [phone] PCP - General Internal Medicine 04/08/13 09/03/19 documented as of this encounter
--- OUTSIDE RECORDS SUMMARY | 2024-11-02 07:28 | XMS_ITS | Encounter Summary ---
Author Organization [facility] Address [address] [place] [address] Care Team Providers Care Branch Coordinator Name Role Phone Yosvany Gonsalez MD Primary Care Provider [phone] Reason for Visit * Auth/Cert Specialty Diagnoses / Procedures Referred By Shelby jama Referred To Contact Diagnoses Herniated nucleus pulposus, C3-4 left Osteoarthritis of cervical spine, unspecified spinal osteoarthritis complication status Stenosis of cervical spine Herniated nucleus pulposus, C3-4 left [M50.21] Osteoarthritis of cervical spine, unspecified spinal osteoarthritis complication status [M47.812] Stenosis of cervical spine [M48.02] Procedures DISCECTOMY WITH FUSION ANTERIOR CERVICAL (ACDF) MULTI-LEVEL Referral ID Status Reason Start Date Expiration Date Visits Re quested Visits Authorized [id number] 1 1 Encounter Details Date Type Department Care Team (Latest Contact Info) Description 10/02/2018 9:28 AM SOLAR INSTALLER TECHNICIAN - 10/03/2018 3:15 PM [facility] Hospital Encounter [facility] [address] [place] [address] Jennifer Kay MD [address] [facility] [place] [phone] Orthopedics Discharge Disposition: Home or Self Care Social History Tobacco Use Types Packs/Day Years [...] Sign Reading Time Taken Comments Blood Pressure 147/68 10/03/2018 11:55 AM SOLAR INSTALLER TECHNICIAN Pulse 82 10/03/2018 11:55 AM SOLAR INSTALLER TECHNICIAN Temperature 36.5 ??C (97.7 ??F) 10/03/2018 11:[address] Respiratory Rate 18 10/03/2018 11:55 AM SOLAR INSTALLER TECHNICIAN Oxygen Saturation 96% 10/03/2018 11:55 AM SOLAR INSTALLER TECHNICIAN Inhaled Oxygen Concentration - - Weight 79 kg (174 lb 2.6 oz) 10/03/2018 3:49 AM SOLAR INSTALLER TECHNICIAN Height 170.2 cm (5' 7 ) 10/02/2018 9:40 AM SOLAR INSTALLER TECHNICIAN Body Mass Index 27.28 10/02/2018 9:40 AM SOLAR INSTALLER TECHNICIAN documented in this encounter Functional Status Functional [...] No 10/02/2018 documented as of this encounter Discharge Summaries * Jennifer Kay MD - 10/03/2018 3:15 PM CST [facility] Discharge Summary PATIENT NAME: MANDIE COTTER [facility]#: [id number] CSN: [id number] CLASS: I/P ADMISSION DATE: 10/02/2018SEX: M DISCHARGE DATE: 10/03/2018DOB: 1955 PRIMARY MD: DISCHARGE TO: 01 ATTENDING MD: JENNIFER KYA DICTATOR: JENNIFER KAY M.D. DIAGNOSIS ON ADMISSION: Cervical spondylosis, spinal stenosis, and disk herniation C3-4 and C6-7 with left C4 radiculopathy and left C7 radiculopathy. DIAGNOSIS AT DISCHARGE: Cervical spondylosis, spinal stenosis, and disk herniation C3-4 and C6-7 with left C4 radiculopathy and left C7 radiculopathy. ASSOCIATED DIAGNOSES ON ADMISSION: Hypertension. SURGICAL PROCEDURES: On 10/02/2018 anterior cervical diskectomy, epidural decompression, bilateral foraminotomies, and interbody fusion, C3-4 and C6-7 with allograft bone spacers, local bone graft, ViviGen demineralized bone with live stem cells and plating C3-4, C6-7. COMPLICATIONS: Minor dysphagia. HISTORY OF PRESENT ILLNESS: The patient is a relatively healthy, 63-year-old, aoytc-dmgs-locrhbbv male, still works. He developed radicular left arm pain and subauricular left ear pain over a year ago. Symptoms did not improve with conservative treatment. His MRI over a year ago, one done recently shows significant spondylosis disk space narrowing, and central lateral recess stenosis with superimposed disk herniations at C3-4 and C6-7 on the left. He was cleared for surgery by his primary care physician, admitted to [facility] on 10/02/2018. Admission labs and cardiogram showed no acute changes. The patient was properly identified, brought to the preop area. Surgical level was marked with indelible ink. He was given IV Ancef for infection prophylaxis taken to the operating room. He underwent 2 level of anterior cervical diskectomy and fusions at C3-4 and C4-5. Intraoperative findings was significant central stenosis and bilateral foraminal stenosis left greater than right at both C3-4 and C6-7. In the evening of surgery, the patient had minor dysphagia. Hewas given IV pain meds, UNIFORM FORCE CAPTAIN Dilaudid pump, and cool liquids, ice chips, and lozenges. By the following morning, patient was able to swallow well. He was given a soft diet which he tolerated, actuallyate a grilled cheese sandwich for lunch. He was ambulating independently with no assistive devices.The UNIFORM FORCE CAPTAIN pump was discontinued, postop day 1 in the morning, and he was placed on Percocet 7.5/325, 1-2 every 4 hours as needed for pain. Pain was well controlled with one Percocet. His dressing was removed. There were no signs of infection, swelling, or drainage, and the wound was left open to the air. The patient was neurologically intact, C5 to T1 dermatomes bilaterally and L3 to S1 dermatomes bilaterally. It was noted that the radicular pain in his left arm and towards his left ear were resolved. The patient was discharged home early afternoon on postop day #1. He was given a prescription for Percocet 7.5/325 to use as needed for pain. He was ambulating independently neurologically intact. The neck incision was unremarkable, was left open to the air. He has a followup appointment with Dr. Kay's financial planning assistant, Calvin Paul, nurse practitioner for October 10, 2018, for removal of a subcuticular nylon suture. All the patient's home medications that were listed in the medical section of his hospital record were resumed at discharge. He was discharged in good condition. Tammy Rosado/MAXIME /[id number] cc: Jennifer Kay M.D. DISCHARGE SUMMARY - SUMM R INSTALLER TECHNICIAN documented in this encounter Discharge Instructions * Discharge Instructions* Unique Bedolla RN - 10/03/2018 8:33 AM SOLAR INSTALLER TECHNICIAN Anterior Cervical Discectomy WHAT YOU NEED TO KNOW: Anterior cervical discectomy is surgery to remove one or more cervical discs from your neck. A cervical disc is material that cushions and separates the vertebrae of your neck. The discs help your spine support your head and protect your spine from being damaged when you move. DISCHARGE INSTRUCTIONS: Medicines: ?? Pain medicine: You may need medicine to take away or decrease pain. ?? Learn how to take your medicine. Ask what medicine and how much you should take. Be sure you know how, when, and how often to take it. ?? Do not wait until the pain is severe before you take your medicine. Tell caregivers if your paindoes not decrease. ?? Pain medicine can make you dizzy or sleepy. Prevent falls by calling someone when you get out ofbed or if you need help. ?? Take your medicine as directed. Contact your healthcare provider if you think your medicine is not helping or if you have side effects. Tell him or her if you are allergic to any medicine. Keep a list of the medicines, vitamins, and herbs you take. Include the amounts, and when and why you take them. Bring the list or the pill bottles to follow-up visits. Carry your medicine list with you in case of an emergency. Follow up with your healthcare provider or orthopedic surgeon as directed: Tell your healthcare provider or orthopedic surgeon if you are having any pain or other symptoms. He may do a physical exam and check your muscle strength and reflexes. You may need tests such as a cervical spine x-ray, CT scan, or MRI to help healthcare providers check the position of each vertebra. The tests will also show if your graft, plates, or screws have moved out of place. Ask how often you should clean your surgical wound and change your bandage. Write down your questions so you remember to ask them during your visits. Activity: Your healthcare provider or orthopedic surgeon may tell you to take many short walks after your surgery. Walking helps blood move through your body and may help prevent blood clots from forming. If you feel weak or dizzy, sit or lie down right away. Neck brace: You may need to wear a neck brace for a few weeks after your surgery. The brace will support your neck and hold it in the right position while you are healing. Do not stop wearing your neck brace until your healthcare provider says it is okay. Physical therapy: You may need physical therapy after your surgery. A physical therapist will help you with exercises to decrease pain and improve movement. Physical therapy can also help improve strength in the muscles that support your neck and decrease your risk for loss of function. Contact your healthcare provider or orthopedic surgeon if: ?? You have a fever. ?? You have a cough that does not go away. ?? The skin around your surgical site is red, warm, or swollen. ?? You have yellow or bad-smelling fluid coming from your wound. ?? You have new or worsening trouble when you swallow. ?? You have new or worsening pain in your neck or arm. ?? You have worsening hoarseness, or you have trouble speaking. ?? You have questions or concerns about your condition or care. Seek care immediately or call 911 if: ?? Your bandage begins to soak with blood. ?? Your surgical wound breaks open. ?? You have painful swelling in your neck and trouble swallowing. ?? You have new or worsening trouble moving your neck, arms, or legs. ?? You start leaking urine or bowel movement. ?? You suddenly feel lightheaded and have trouble breathing. ?? You have chest pain. You may have more pain when you take a deep breath or cough. You may cough up blood. ?? Your arm or leg feels warm, tender, and painful. It may look swollen and red. ?? Copyright [employer] 2017 Information is for End User's use only and may not be sold, redistributed or otherwise used for commercial purposes. All illustrations and images included in CareNotes?? are the copyrighted property of [employer]. or [employer] The above information is an educational psychology teacher only. It is not intended as medical advice for individual conditions or treatments. Talk to your doctor, nurse or pharmacist before following any medical regimen to see if it is safe and effective for you. Oxycodone/Acetaminophen (By mouth) Acetaminophen (e-nklm-z-MIN-oh-fen), Oxycodone Hydrochloride (es-g-QJQ-done rfu-bqwj-AUVH-sandro) Treats moderate to moderately severe pain. This medicine is a narcotic pain reliever. Brand Name(s): Endocet, Nalocet, Percocet, Primlev There may be other brand names for this medicine. When This Medicine Should Not Be Used: This medicine is not right for everyone. Do not use it if you had an allergic reaction to acetaminophen or oxycodone, or if you have serious breathing problems or paralytic ileus. How to Use This Medicine: Capsule, Liquid, Tablet, Long Acting Tablet ?? Your doctor will tell you how much medicine to use. Do not use more than directed. ?? An overdose can be dangerous. Follow directions carefully so you do not get too much medicine atone time. ?? Oral liquid: Measure the oral liquid medicine with a marked measuring spoon, oral syringe, or medicine cup. ?? Swallow the extended-release tablet whole. Do not crush, break, or chew it. Do not lick or wet the tablet before placing it in your mouth. Do not give this medicine through a feeding tube. ?? This medicine should come with a Medication Guide. Ask your pharmacist for a copy if you do not have one. ?? Missed dose: If you miss a dose of this medicine, skip the missed dose and go back to your regular dosing schedule. Do not double doses. ?? Store the medicine in a closed container at room temperature, away from heat, moisture, and direct light. Ask your pharmacist about the best way to dispose of medicine you do not use. Drugs and Foods to Avoid: Ask your doctor or pharmacist before using any other medicine, including uzpv-txv-iogyuhy medicines, vitamins, and herbal products. ?? Do not use Xartemis??? XR if you are using or have used an MAO inhibitor in the past 14 days. ?? Some medicines can affect how this medicine works. Tell your doctor if you are using any of the following: ?? Carbamazepine, erythromycin, ketoconazole, lamotrigine, mirtazapine, naltrexone, phenytoin, propranolol, rifampin, ritonavir, tramadol, trazodone, or zidovudine ?? control pills ?? Diuretic (water pill) ?? Medicine to treat depression ?? Phenothiazine medicine ?? Triptan medicine to treat migraine headaches ?? Do not drink alcohol while you are using this medicine. Acetaminophen can damage your liver, andalcohol can increase this risk. Do not take acetaminophen without asking your doctor if you have 3 or more drinks of alcohol every day. ?? Tell your doctor if you use anything else that makes you sleepy. Some examples are allergy medicine, narcotic pain medicine, and alcohol. Tell your doctor if you are using buprenorphine, butorphanol, nalbuphine, pentazocine, a benzodiazepine, or a muscle relaxer. Warnings While Using This Medicine: ?? Tell your doctor if you are or , or if you have kidney disease, liver disease, heart disease, low blood pressure, breathing problems or lung disease (such as asthma, COPD), thyroid problems, Clinch disease, pancreas or gallbladder problems, prostate problems, trouble urinating, or a stomach problems, or a history of head injury or brain damage, seizures, or alcohol or drug abuse. Tell your doctor if you are allergic to codeine. ?? This medicine may cause the following problems: ?? High risk of overdose, which can lead to ?? Respiratory depression (serious breathing problem that can be life-threatening) ?? Liver problems ?? Serious skin reactions ?? Serotonin syndrome (when used with certain medicines) ?? This medicine may make you dizzy or drowsy. Do not drive or do anything that could be dangerous until you know how this medicine affects you. Sit or lie down if you feel dizzy. Stand up carefully. ?? This medicine contains acetaminophen. Read the labels of all other medicines you are using to see if they also contain acetaminophen, or ask your doctor or pharmacist. Do not use more than 4 grams(4,000 milligrams) total of acetaminophen in one day. ?? This medicine can be habit-forming. Do not use more than your prescribed dose. Call your doctor if you think your medicine is not working. ?? Do not stop using this medicine suddenly. Your doctor will need to slowly decrease your dose before you stop it completely. ?? This medicine could cause infertility. Talk with your doctor before using this medicine if you plan to have children. ?? This medicine may cause constipation, especially with long-term use. Ask your doctor if you should use a laxative to prevent and treat constipation. ?? Keep all medicine out of the reach of children. Never share your medicine with anyone. Possible Side Effects While Using This Medicine: Call your doctor right away if you notice any of these side effects: ?? Allergic reaction: Itching or hives, swelling in your face or hands, swelling or tingling in your mouth or throat, chest tightness, trouble breathing ?? Anxiety, restlessness, fast heartbeat, fever, muscle spasms, twitching, diarrhea, seeing or hearing things that are not there ?? Blistering, peeling, red skin rash ?? Blue lips, fingernails, or skin ?? Dark urine or pale stools, loss of appetite, stomach pain, yellow skin or eyes ?? Extreme weakness, shallow breathing, uneven heartbeat, seizures, sweating, or cold or clammy skin ?? Severe confusion, lightheadedness, dizziness, or fainting ?? Severe constipation, nausea, or vomiting ?? Trouble breathing or slow breathing If you notice these less serious side effects, talk with your doctor: ?? Headache ?? Mild constipation, nausea, or vomiting ?? Mild sleepiness or drowsiness If you notice other side effects that you think are caused by this medicine, tell your doctor. Call your doctor for medical advice about side effects. You may report side effects to FDA at 1-497-YEW-2193 ?? Copyright [employer] 2018 Information is for End User's use only and may not be sold, redistributed or otherwise used for commercial purposes. The above information is an educational psychology teacher only. It is not intended as medical advice for individual conditions or treatments. Talk to your doctor, nurse or pharmacist before following any medical regimen to see if it is safe and effective for you. R INSTALLER TECHNICIAN documented in this encounter Medications at Time of Discharge Medication Sig Dispensed Refills Start Date End Date aspirin (ASPIRIN) 81 MG chew tablet Take 81 mg by mouth once daily Cholecalciferol (VITAMIN D) 2000 UNITS CAPS capsule Take 2,000 Units by mouth once daily [place]-3 Fatty Acids (FISH OIL) 1000 MG capsule Take by mouth once daily oxyCODONE-acetaminophe n (PERCOCET) 7.5-325 MG tablet Take 1-2 tablets by mouth every 4 hours as needed for Pain (for moderate to severe pain) 120 tablet 10/02/2018 vitamin E (TOCOPHERYL) 400 UNIT tablet Take 400 Units by mouth once daily ezetimibe-simvastatin (VYTORIN) 10-10 MG tablet Take 1 tablet by mouth at bedtime 30 tablet 10/03/2018 10/04/2018 pantoprazole EC (PROTONIX) 40 MG tablet Take 1 tablet by mouth once daily 30 tablet 10/03/2018 10/04/2018 documented as of this encounter Progress Notes * Kaci Diaz RN - 10/03/2018 3:15 PM CST Discharged home with prescription and instructions. Verbalized understanding of discharge and follow up instructions. Incision open to air with steristrips per order. Distal circulation intact. Does have some numbness to 3 fingers on the left hand which is new. MD is aware. Adequate pain control with medications. Voices no concerns at this time. R INSTALLER TECHNICIAN * Chetan Singh MSW - 10/03/2018 2:38 PM CST Care Management Initial Assessment Met with: Pt Patient's orientation/cognition: A&O, Mood: Appropriate Lives with:: Spouse Community Resources currently in use?: No Requires assistance with:: None Medical Conditions: (Cervical spondylosis, stenosis, and disk herniation, C3-4 and C6-7 with left cervical radiculopathy and cephalgia) Equipment At Home: None Preferred Pharmacy [facility] [address] [facility] [address] [phone] Portal to [facility] Sites [address] [facility] [address] Hours: Fax number verified on 11-14-2012 [id number] [address] [address] [phone] [place] [address] Not a 24 hour pharmacy; exact hours not known [id number] [place] [address] [id number] [place] [address] Not a 24 hour pharmacy; exact hours not known Medi-Hotel Or Motel Receptionist: yes Ability to afford meds/at what level would be unaffordable?: pt can afford medications w/ insurance Primary Care Provider: Yosvany Gonsalez MD Transportation to Appointments: Family Basic Needs Assessment Score: 6. If scored 10 or < see the completed Complex Needs Assessment flow sheet Anticipated Discharge Plan: Anticipated Discharge Date: 10/03/18 Anticipated Discharge Date discussed with pt and/or family (yes or no)? yes Anticipated level of care at discharge: Home. Anticipated level of care provider: None Patient/Family provided with list of resources? Yes Reason for provider choice: Insurance Residential Prescreen sent (if applicable/date): n/a Transportation at discharge: Family Care Management Contact information given to: Pt Comments/Follow-up needs: Pt had Cervical spondylosis, stenosis, and disk herniation, C3-4 and C6-7with left cervical radiculopathy and cephalgia. Pt is doing well and Dr Kay said pt can go home today. Pt states he has no dme or hh needs, sw left a resource packet w/ pt. is bedside and will transport home, Dr Kay told the pt he didn't want him to drive until he sees him on his f/uvisit. R INSTALLER TECHNICIAN * Jennifer Kay MD - 10/03/2018 1:30 PM CST Ortho POD #1 S/P ACDF C3-4 & C6-7 Pt is doing well and is anxious to go home as he guido a soft diet, pain is controlled with Percocet 7.5/325 1 pill every 6 hrs and he is ambul Indep. He notes that his left arm pain is improved as is his posterior neck pain, but he does note numbness and tingling of his thumb, index and long fingers in his left hand which is probably due to intra-op positioning. Afeb VSS Neck incis is unremarkable as there is no swelling, drainage or gross signs of infection. Neuro exam is normal in th C5-T1 dermatomes bilat and in the L3-S1 dermatomes bilat. Imp:excellentpost op course Plan: D/C home now, F/U in one week. R INSTALLER TECHNICIAN * Geovany Rebollar, JOSEFINA - 10/03/2018 10:02 AM CST 10/03/18 0938 Author/Specialty Author / Specialty Occupational Therapy Home Situation Type of Residence Private Residence Lives with: Spouse Bathroom Tub/Shower Combo Prior Level of Function Mobility Ambulate-In Community;Without Assistive Device;Driving Mental Status Orientation Level Oriented X4 Level of Consciousness-Adult Alert Psychosocial Patient Behaviors Calm;Cooperative;Appropriate for situation Family Behaviors Calm;Cooperative;Appropriate for situation RUE Assessment RUE Assessment WDL RUE Sensation WFL LUE Assessment LUE Assessment WDL LUE Sensation X Anti-Embolism Mechanical Devices (For Pharmacological Interventions See MAR) Mechanical Interventions On Anti-embolism Mechanical Devices Sequential compression devices Thigh High;Antiembolism stockings, Knee Basic ADL Lower Body Dressing Stand By Assist Fine Motor Coordination Chemical Engineering Technologist Strength Compared Equal strength of right and left Evaluation Status Initial evaluation done Yes Clinical Presentation evolving Group Session Times Is this a Rehabilitation patient? No Session Time Start time 0945 Stop Time 1000 Minutes Seen 15 OT eval performed. Pt reports tingling in his left hand. Otherwise doing well. Able to walk and perform self care safely and independently. Pt expected to go home today. No skilled OT needs R INSTALLER TECHNICIAN * Addison Paul, PT - 10/03/2018 8:59 AM CST 10/03/18 0859 Basic Mobility - AM-PAC 6 Clicks Difficulty Turning Over in Bed 4 Difficulty Sitting Down/Standing Up 4 Difficulty Moving from Lying on Back to Sitting on the Side of the Bed 4 Help Moving To and From a Bed to a Chair 4 Help to Walk in Hospital Room 4 Help in Climbing 3-5 Steps with a Railing 4 Mobility Raw Score: 24 AM-PAC T-Table Score (Calculated) 61.14 CMS 0-100% Score (Calculated) 0 CMS 'G-Code' Modifier (Calculated) CH R INSTALLER TECHNICIAN * Addison Paul, PT - 10/03/2018 8:57 AM CST 10/03/18 0846 Author/Specialty Author / Specialty Physical Therapy Relay Telegrapher Resource Is a qualified court interpreter used? No Home Situation Type of Residence Private Residence Lives with: Spouse Steps to Enter No Ramp No Handrails None Home Structure One Story Primary Bedroom First Floor Primary Bathroom First Floor Bathroom Tub/Shower Combo Equipment At Home CPAP/Bi-PAP;Cane-Straight;Walker-2 Wheeled Prior Level of Function Mobility Ambulate-In Community;Without Assistive Device;Driving Fallen Within 6 Mos No Have Help at Home? No help at home now Oxygen at Home No;CPAP at night Activity at Home Active;Driving Vision Corrected with glasses Hearing Exceptions Hearing concerns Mental Status Orientation Level Oriented X4 Pain Assessment Pain Rating Score # 0 Bed Mobility Rolling Complete [place] Supine to Sit Complete [place] Sit to Supine Complete [place] Transfers Sit to Stand Complete [place] Stand to Sit Complete [place] Chair to Bed Complete [place] Bed to Chair Complete [place] Transfer Device No Device Mobility Distance Ambulated 440 FEET Ambulation: Assistive Device None Ambulation: Level of Assistance Complete [place] Weight Bearing Status-LLE Weight Bearing as Tolerated Weight Bearing Status-RLE Weight Bearing as Tolerated Weight Bearing Status-LUE Weight Bearing as Tolerated Weight Bearing Status-RUE Weight Bearing as Tolerated RLE Assessment RLE Assessment WDL RLE Sensation WFL LLE Assessment LLE Assessment WDL LLE Sensation WFL Treatment Time Treatment Start Time 814 Physical Therapy Treatment Summary Note 10/03/2018 Mandie Cotter [id number] Referring Physician:Jennifer Kay MD Referral Diagnosis: 1. Cervical stenosis of spinal canal 2. Herniated nucleus pulposus, C3-4 left 3. Osteoarthritis of cervical spine, unspecified spinal osteoarthritis complication status 4. Stenosis of cervical spine Comorbidities impacting plan of care: Problem List: decreased Strength ,Transfer And Gait Skills , Decreased Balance, Fall Risk, InstructAnd Educate To Improve Quality Of Life. Functional Limitation: [address] [facility] Rationale for Therapy: Patient will benefit from PT to address the above issues\ .EXAMINATION : LOW COMPLEXITY 1-2 ELEMENTS, Pt was seen for 41 minutes for evaluation and Or treatment. One Time Referral No Skilled Physical Therapy follow Up Required . The Patient statted He Did Have Numbness In The Left Thumb , index, And Middle Finger Co morbilities LOW COMPLEXITY 0, 1 Stable, Treatment Today : Evaluation And Treatment Call Light Within Reach Addison Paul, PT 10/03/2018 8:57 AM R INSTALLER TECHNICIAN * Mireya Fernandez, PharmD - 10/03/2018 8:20 AM CST Medication Reconciliation Note Reviewed med list prior to discharge. Oxycodone-APAP script printed by physician. Mireya Fernandez PharmD 10/03/2018 8:20 AM R INSTALLER TECHNICIAN * Gee Chávez RN - 10/03/2018 7:36 AM CST End of shift note. Chart review complete. Numbness and tingling to LUE continues. No distress or concerns voiced. R INSTALLER TECHNICIAN * Gee Chávez RN - 10/03/2018 12:00 AM CST Problem: Pain/Discomfort Goal: Patient verbalizes acceptable level of pain relief and ability to engage in desired activity. Outcome: Ongoing Pt verbalizes acceptable level of pain relief. Problem: Low Fall Risk (Score 7-10) Goal: Patient will remain safe from falls and injury. Outcome: Ongoing Pt remains safe from falls and injury. R INSTALLER TECHNICIAN * Gee Chávez RN - 10/02/2018 10:11 PM CST Pt refused co2 monitoring at this time. Educated on importance of same. R INSTALLER TECHNICIAN documented in this encounter OR Notes * Operative - Jennifer Kay MD - 10/03/2018 3:36 AM CST [facility] Operative Report PATIENT NAME: MANDIE COTTER#: [id number] CSN: [id number] CLASS: I/P ADMISSION DATE: 10/02/2018ROOM#: [id number] PRIMARY MD: SEX: M ATTENDING MD: JENNIFER HOBBSOB: 1955 SURGEON: Jennifer Kay M.D. DICTATOR: JENNIFER KAY M.D. SURGERY DATE: 10/02/2018 FACILITY: Main operating room, [place], [place]. PREOPERATIVE DIAGNOSIS: Cervical spondylosis, stenosis, and disk herniation, C3- 4 and C6-7 with left cervical radiculopathy and cephalgia. POSTOPERATIVE DIAGNOSIS: Cervical spondylosis, stenosis, and disk herniation, C3-4 and C6-7 with left cervical radiculopathy and cephalgia. OPERATION: Anterior cervical diskectomy, epidural decompression and bilateral foraminotomy, C3-4 and C6-7, interbody fusion C3-4 and C6-7 with allograft bone spacer, local bone graft. ViviGen allograft in stem cells and then anterior cervical plating, C3-4 and C6-7. SLOT SERVICE SPECIALIST: Galina Hummel, nurse practitioner. ANESTHESIA: General. ESTIMATED BLOOD LOSS: 150 cc. FLUID REPLACEMENT: 2000 cc crystalloid. SPECIMEN: C3-4 and C6-7 discs. COMPLICATIONS: None. CONDITION: At the end of the procedure was stable. URINE OUTPUT: Not monitored during the procedure. 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 He started developing radicular left arm pain and also pain radiating up towards his left ear along with some neck pain and headaches. Diagnosed to have cervical spondylosis and stenosis at C3-4 and C6-7 with the left side being much more stenotic than the neural foramina on the right side.He failed conservative treatment including rest, physical therapy, medications, activity modification, epidural steroid injections. MRI which immediately done and done almost a year ago and one done recently prior to surgery confirms severe spondylosis with disk space narrowing at C3-4 and C6-7. Hehad foraminal stenosis bilaterally at both levels, left side greater than right. Also had soft discherniation at C6-7 going into the neural foramen and similar finding at C3-4 on the left. The patient was neurologically intact prior to surgery. He was cleared for surgery by his primary care physician, admitted to [facility] on October 02, 2018. DESCRIPTION OF PROCEDURE: The patient was properly identified, brought to the preop area. Admissionlabs and cardiogram showed no acute changes. Surgical level was marked with indelible ink. He had signed the operative permit last week in the office. All questions were answered. He had no questionsthe morning of surgery. The patient was given 2 g of IV Ancef for infection prophylaxis and taken to the operating room. He was placed supine on the standard operating room table with a Spence headrest. General anesthesia was administered. Once the endotracheal tube was secured, the patient was positioned with his head on the Spence headrest in about 5 degrees of cervical extension. A bump was placed beneath his shoulder blades and his shoulders were then taped distally to the table to allow visualization of lower cervical spine. Lateral studio operations engineer in charge x-ray was taken which showed our ability to see down to the inferior portion of the C7 vertebral body, C7-T1 disk space. His neck was then prepped and draped in usual sterile fashion. Time-out was performed. Surgeon was standing on the left side. The patient wearing 3.5 magnification loupes and a headlamp for added visualization. Due to the fact that the disk spaces that were going to operate on was C3-4 and C6-7, I did feel comfortably we could address this through a transverse incision. An anterior longitudinal incision was made along the anterior border of sternocleidomastoid muscle. I infiltrated the dermal tissue with 0.5% Marcainewith epinephrine using a 27-gauge needle. About 6 mL were utilized. Incision was then made along the anterior border of the sternocleidomastoid muscle. It was about 10 or 11 cm in length. It was taken down through the level of skin and the platysma layer. Platysma was incised longitudinally to fullextent of the incision. I then bluntly dissected medial to the sternocleidomastoid muscle, identified the carotid sheath, and also identified the omohyoid muscle. We initially tried to save the omohyoid muscle but it was in the surgical field. It was isolated and incised using Bovie cautery. My financial planning assistant then held a handheld appendiceal retractor to retract the esophagus and trachea to the right of midline. I then identified the prevertebral fascia. Two small perforating vessels were suture ligated. I was then able to visualize the longus colli muscles on the right and left sides of the spine. He had unusually large longus colli muscles which almost met in the midline. We then palpated an osteophyte which I assume that at the time was the C6-7 disk space until there was no osteophytes at C4-5, or C5-6. I placed the 22-gauge spinal needle in what I thought was the C6 vertebral body. Purposely, I did not put it in the disk space in case I was at the wrong level. Lateral x- ray was taken confirming I was at the C6 vertebrae. Needle was removed. The bleeding was controlled using a small amount of bone wax. We then did the surgery at C6-7 first. I dissected the longus colli muscle on the right and left sides and removed it. I then sharply incised the anulus. The disk space was very collapsed. It was only about 2-3 mm in height. He did have some anterior osteophytes. These were cleaned of soft tissue using Bovie cautery and a large pituitary, and they were then resected using a small double-action rongeur. This bone was cleaned of soft tissue and saved for bone grafting later in the procedure. I then used a small straight and angled pituitary rongeurs to remove additional disk material. Once the disk space was opened and up, I put a small Arreguin elevator into it, twisted it to the right and left to mobilize it, and then placed a Cloward lamina technical support coordinator on the right side of the disk space to maintain distraction. Subtotal diskectomy was done down to the epidural space. Therewas really very minimal disc material left. The disk was very degenerated. He had a very large osteophyte coming off the inferior margin of the C6 vertebra. This was removed using a high-speed 2 mm radha-tipped bur. I then did a foraminotomy on the right side again using the bur, micro curette, and 1 mm angled Kerrison rongeur. Once we completed the foraminotomy on the right side, you could seethe C7 nerve root exiting. At this point, the posterior longitudinal ligament was still intact in the midline. I then undercut the vertebral body using angled curettes and 1 mm Kerrison rongeur. Again, any bone harvested from the curettes and Kerrison were saved for bone grafting. Foraminotomy was then done on the left side using a high-speed bur, curettes, and Kerrison. We removed the uncovertebral joint and decompressed the neural foramen. There was disk material noted with a defect of posterior longitudinal ligament at the left of midline going into the neural foramen. Disc material was removed using a micro 5.0 and 6.0 curettes. After the uncovertebral joint was completely resected, thedisc material was removed. You could see the C7 nerve root exiting bilaterally. I then took a 6.0 curette and then incised and opened the posterior longitudinal ligament. It was then resected using a2 mm small angled Kerrison rongeur. This space was copiously irrigated out. I had measured the height of the disk space to be 7 mm. There was a little gap superiorly and inferiorly. So, we reconstituted a 7 mm cancellous allograft in warm antibiotics. I did alter the graft and making lordotic prioractually placing it into the disk space. I then used a 4 mm pineapple bur to help decorticate the en dplates of C6 and C7 which were extremely sclerotic. We did not remove the entire bony endplate. Wejust thinned it out to bleeding bone. I then used a 2.0 curette to further scrape the endplates to bleeding bone. Once we had bleeding of the endplates at C6-7, a 6.0 curette was used to make about 6-7 punch holes in each endplate of C6 and C7 to create vascular channels to help revascularize the allograft. The epidural space was then irrigated out with 800 cc of antibiotic. There was a little bit of bleeding in the neural foramina bilaterally. Small pieces of Gelfoam were placed and then we packed the area with half by half cottonoids. We waited about 4-5 minutes. The cottonoids were removed. The Gelfoam was left in place and there was no active bleeding. It was not taking up much space and it was felt to be safe to leave the Gelfoam in the area of the neural foramen. We then took the 7 mm allograft which had been reconstituted in warm antibiotic, dried it, and modified it using a small double-action rongeur and then DBX putty was placed on either side of the graft. The graft was then impacted until it was flushed with the vertebral bodies of C6 and C7. Cloward lamina technical support coordinator was removed and the graft was countersunk about 2 mm. Lateral x-ray was taken showing excellent positionof the graft with good restitution of disk height and lordosis with no compromise of the epidural space. The bone graft was then mixed with ViviGen which is demineralized bone stem cell which was kept in the freezer at -80 degrees. This was reconstituted. It was mixed with about half a cc of DBX putty and the autograft. The graft mixture was then placed on the right and left sides of the allograft and anterior to the allograft to help increase the surface area for fusion. The spine was then instrumented anteriorly with a 16 mm Vectra-T plate. 18 mm 4.5 self-tapping variable angle cancellous screws were used to secure the plate. Entry points were made with a captured awl followed by the screws. The screws were placed in a slightly divergent fashion. After the screws were placed before I actually locked into the plate, a lateral x-ray was taken showing good position of screws. No compromise to the C6-7 disk space. There was no compromise of the C6 endplate or the C7 endplate. Screws were then locked to the plate and tightened to 2 finger tightness. The small dynamic clip was removed. The area was irrigated out with about 500 cc of antibiotic. It was packed with a Ray-José sponge. Thedissection was then carried out more proximally. We counted the disk spaces at C5-6, C4-5, I put a spinal needle in what I thought was the C4 vertebral body. Lateral x-ray was then taken confirming my position. My financial planning assistant again held appendiceal retractors to retract the trachea, esophagus, and strap muscles to the right of midline. I then mobilized the longus coli muscle, resected on the right and left sides of the spine for about 4 mm. Subtotal diskectomy was performed. Again, there were anterior osteophytes at this level. These were removed using a double-action rongeur. The bone was saved for grafting. I then put in a Arreguin elevator into the disk space and twisted to the right and left to distract it. This disk space did not open as much as the C6-7 one. Cloward lamina technical support coordinator was placed on the right side. Subtotal diskectomy was performed using straight and angled pituitary rongeurs and micro curettes. Once we were down towards the epidural space, a very large osteophyte coming off the inferior margin of C3 which was obscuring the epidural space. This was removed using a 2 mm high-speed radha-tipped bur. Once we got removed the osteophyte and was able to undercut the vertebral body using 6.0 and 5.0 curettes and 1 mm angled Kerrison rongeur, I then undercut the midline at C3-4. There was some soft disc material laterally on the left side going towards the neural foramen and large uncovertebral hypertrophy on the left side more so than the right. I did a foraminotomy on the right side first again using a high- speed bur, curette, and angled 1 mm Kerrison rongeur. We decompressed the C4 nerve root and it was seen exiting to the right without any residual pressure. Some minor amount of bleeding was occurring in the neural foramen on the right side. This was treatedwith Gelfoam soaked in thrombin and cottonoids. I then completed the midline decompression on the left side. There was a large uncovertebral spur which was removed using the high-speed bur. There wasalso some disk material getting out of the neural foramen which was removed using a down bite pituitary rongeur and a 5-0 angled micro curette. After I completed the foraminotomy on the left side, I removed the disk herniation. I resected the posterior longitudinal ligament which was somewhat deficient at this level from the midline all the way to the left neural foramen. The remainder of the post erior longitudinal ligament was resected using an angled 2 mm Kerrison rongeur. The decompression was now completed. I used calipers and measured the height of the disk space to be 6 mm. A 6 mm trialwas placed and lateral x-ray showed excellent carpentry and fit, and no compromise of the epidural space. We then reconstituted a 6 mm allograft. I prepared the endplates, again using a 4 mm pineapple bur followed by a 2-0 curette, and I made punch holes about 6 or 7 in each endplate of C3 and 4 using a 6.0 curette. The disk space was copiously irrigated out. The packing with the half by half cottonoids and Gelfoam was still in place. The half by half was removed. Gelfoam was left in place. There was no active bleeding. It was not occupying a lot of space and we left out to control bleeding. We then irrigated out the disk space with about 500 cc of antibiotic solution, suctioned the area dry. A 6 mm allograft was dried and was filled with DBX putty, then impacted until it was flushed withthe vertebral bodies of C3-4. Lamina technical support coordinator was removed. I countersunk the graft about 2 mm. Lateral x-ray was then taken showing good carpentry and fit of the graft. No compromise of the epidural space. I had to do some carpentry work to be able to get the plate. This fit well the anterior portions of C3-4 due to large osteophyte. Some of the bone was removed using double-action rongeur. This bone was saved for bone grafting. The remainder was contoured using a high-speed 2 mm radha-tippedbur. We elected to use a vector plate not a vector T plate at C3- 4. The vertebral bodies were smaller and it would not handle the width and length of the Vectra-T plate. We elected to use a 14 mm Vectra plate. This was bent using the custom plate rucker to contour the cervical lordosis. It was then attached using 16 mm length 4.5 self-tapping variable angle cancellous screws. Entry points were made initially using a yolande followed by the awl. We used the yolande initially because the bone was so sclerotic. I was afraid the awl would slide off and not get an accurate positioning. One screw was placed in C4 on the right and the other one in C3 on the left. Lateral x-ray was taken showing good position of the screws. No compromise of the epidural space. No compromise of the C3-4 space where thisallograft spacer was and no compromise of the disk spaces above or below the fuse construct. I thenplaced the second two screws. All screws were locked to the plate and tightened to 2 finger tightness. I then took the remainder of the ViviGen and local bone graft, which had been freezed in the putty and impacted on the right and left sides of the allograft and then also anterior to the graft between the graft and plate. Once this was all positioned, a final x-ray was taken, which showed good positioning of both placing graft at C3-4 and C6-7. The retropharyngeal space was irrigated out with about 600 cc of antibiotic, suctioned dry. It was packed with 2 Ray-José sponges. We waited about 4-5minutes. Packing was removed. There was no active bleeding. Drain was not felt to be necessary. Thewound was then closed in layers in a standard fashion. Trachea and esophagus were allowed to retract back to the midpoint position. The platysma layer was closed with running inverted 0 Vicryl suture. Subcutaneous tissue was irrigated out with 200 cc. Meticulous hemostasis was obtained using bipolar cautery and then subcu was closed with inverted 2-0 Vicryl. Skin was closed with a running 3-0 nylon subcuticular suture. Sterile benzoin, Steri-Strips were applied along with a pressure dressing and a soft collar. The patient was then transferred from the operating room table to his hospital bed in a supine position. He was awakened, extubated, and transferred to the recovery room supine and instable condition. In the recovery room, the patient's voice was normal. He was able to swallow his saliva easily. He had no radicular arm pain and was neurologically intact in both arms, C5-T1 dermatomes and intact in both legs, L3-S1 dermatomes. There was no intraoperative or postoperative complications. Estimated blood loss again was 150 cc. Fluid replacement 2000 mL crystalloid. Specimen was C3-4 and C6-7 disks. ADDENDUM: Galina Hummel, nurse practitioner, was assistant cook for this procedure. Her responsibilities included, she helped me position the patient supine, helped me tape the shoulders down to allow visualization of lower cervical spine. Throughout the surgical procedure, she suctioned for the surgeon in the epidural space. She held a handheld appendiceal retractor to retract the esophagus, trachea, and strap muscles in the right of midline, so I could visualize the spine and do the procedure. When the plate was placed, she held the plates with a plate garcia while I instrumented down withthe awl and screws. She assisted in cleaning a preparation of local bone graft, and she also assisted in wound irrigation, wound closure, placement of the dressing, and soft collar, and transferring the patient off the operating room table. This procedure could not have been done without a assistant cook. Jennifer Kay M.D. SARAH/MAXIME /[id number] cc: Jennifer Kay M.D. OPERATIVE REPORT - OP R INSTALLER TECHNICIAN * Brief Op Note - Jennifer Kay MD - 10/02/2018 5:47 PM CST Brief Op Note Procedure: ANTERIOR CERVICAL DISCECTOMIES, EPIDURAL DECOMPRESSION, BILATERAL FORAMINOTOMIES AND INTERBODY FUSIONS (ACDF) MULTI-LEVEL C3-4, C6-7 WITH ALLOGRAFT BONE SPACERS, LOCAL BONE GRAFT AND ANTERIOR PLATING C3-4, C6-7 Patient Name: Mandie Cotter Date of Service: 10/02/2018 Pre-Op Diagnosis: Herniated nucleus pulposus, C3-4 left [M50.21] Osteoarthritis of cervical spine, unspecified spinal osteoarthritis complication status [M47.812] Stenosis of cervical spine [M48.02] Post-Op Diagnosis: Same Surgeon(s) and Role: * Jennifer Kay MD - Primary Drilling Engineer(s): Galina Hummel NP Anesthesia Type: general Complications: none Findings: severe disc space narrowing with moderate central stenosis and severe foraminal stenosis left greater than right at C3-4 & C6-7 EBL: 150 mL Urine Output : N/A IV Fluid Intake: 2000 cc crystalloid Drains: None Implants: C3-4: 6 mm cancellous allograft bone spacer and 14 mm Vectra Plate (Synthes Spine), C6-7:7 mm cancellous allograft bone spacer and 16 mm Vectra-T plate (Synthes Spine) Specimen(s): Order Name Source Comment Collection Info Order Time GROSS + MICRO EXAM (ILL) Disc Tissue Collected By: Jennifer Kay MD 10/02/2018 3:15 PM Jennifer Kay MD R INSTALLER TECHNICIAN documented in this encounter Plan of Treatment Not on file documented as of this encounter Procedures Procedure Name Priority Date/Time Associated Diagnosis Comments CARDIAC RHYTHM STRIP ORDER 10/04/2018 2:06 PM SOLAR INSTALLER TECHNICIAN OT EVAL AND TREAT Routine 10/02/2018 7:29 PM SOLAR INSTALLER TECHNICIAN PT EVAL AND TREAT Routine 10/02/2018 7:29 PM SOLAR INSTALLER TECHNICIAN XR CERVICAL SPINE 2 OR 3VW STAT 10/02/2018 5:55 PM SOLAR INSTALLER TECHNICIAN Herniated nucleus pulposus, C3-4 left Osteoarthritis of cervical spine, unspecified spinal osteoarthritis complication status Stenosis of cervical spine GROSS + MICRO EXAM (ILL) Routine 10/02/2018 3:14 PM SOLAR INSTALLER TECHNICIAN Herniated nucleus pulposus, C3-4 left Osteoarthritis of cervical spine, unspecified spinal osteoarthritis complication status Stenosis of cervical spine DISCECTOMY WITH FUSION ANTERIOR CERVICAL (ACDF) MULTI-LEVEL 10/02/2018 12:23 PM SOLAR INSTALLER TECHNICIAN Herniated nucleus pulposus, C3-4 left Osteoarthritis of cervical spine, unspecified spinal osteoarthritis complication status Stenosis of cervical spine Special Needs BONE SPACERS, SYNTHES VECTRA-T PLATESNOTIFIED MANJITGAEL @ [employer] BLOOD TYPE VERIFICATION Routine 10/02/2018 10:17 AM SOLAR INSTALLER TECHNICIAN documented in this encounter Results * CARDIAC RHYTHM STRIP ORDER (10/04/2018 2:06 PM SOLAR INSTALLER TECHNICIAN) Narrative 10/04/2018 2:06 PM SOLAR INSTALLER TECHNICIAN Ordered by an unspecified provider. Scanned Document CARDIAC SERVICES ORD ERABLES * XR CERVICAL SPINE 2 OR 3 VW [id number] (10/02/2018 5:55 PM SOLAR INSTALLER TECHNICIAN) Anatomical Region Laterality Modality Spine Radiographic Leola ging 10/02/2018 6:04 PM SOLAR INSTALLER TECHNICIAN Impressions 10/02/2018 6:05 PM SOLAR INSTALLER TECHNICIAN Anterior fusion hardware is in place at C6-C7 with intervertebral graft. Bones and hardware are in good alignment at conclusion of exam. Narrative 10/02/2018 6:05 PM SOLAR INSTALLER TECHNICIAN PROCEDURE: XR CERVICAL SPINE 2 OR 3VW [...] in good alignment at conclusion of exam. Jennifer Kay MD DIAGNOSTIC IMAGING O RDERABLES * GROSS + MICRO EXAM (ILL) (10/02/2018 3:14 PM SOLAR INSTALLER TECHNICIAN) Case Report Surgical Pathology Report ? Case: [id number] ? Authorizing Provider: ??Jennifer Kay MD ?Collected: ? 10/02/2018 03:14 PM ? Ordering Location: ? [facility] ? Received: ?10/03/2018 06:56 AM ? Pathologist: ? Julian Alexis MD ? Specimen: ?Disc Tissue, C3-4;C6-7 ? 10/05/2018 9:19 AM SOLAR INSTALLER TECHNICIAN [facility] Final Diagnosis DISC FRAGMENTS, C3-4 AND C6-7, ANTERIOR CERVICAL DISCECTOMY WITH FUSION: - FRAGMENTS OF DEGENERATING FIBROCARTILAGINOUS DISC. - FRAGMENTS OF UNREMARKABLE BONE. - NEGATIVE FOR ACUTE INFLAMMATION AND NEOPLASM. ZOË/jzr 10/05/2018 9:19 AM SOLAR INSTALLER TECHNICIAN [facility] Clinical History Herniated nucleus pulposus, C3-4 left; Osteoarthritis of cervical spine. 10/05/2018 9:19 AM SOLAR INSTALLER TECHNICIAN [facility] Gross Description Specimen received in formalin labeled Mandie Cotter labeled as ? disc tissue C3-C4; C6-7? , consists of irregular fragments of warren-white to warren-brown soft tissue and cartilage tissue together aggregating 3 cm. There is no abnormal pigmentation. Specimen is submitted in one cassette after decalcification. RP/jzr 10/05/2018 9:19 AM SOLAR INSTALLER TECHNICIAN [facility] Microscopic Description Microscopic examination is performed and substantiates the above diagnosis. 10/05/2018 9:19 AM SOLAR INSTALLER TECHNICIAN [facility] Performed By Performed by [facility] [place] at [facility], [place]. [address] 10/05/2018 9:19 AM SOLAR INSTALLER TECHNICIAN [facility] Embedded Images 10/05/2018 9:19 AM SOLAR INSTALLER TECHNICIAN [facility] Pathology/Cytol ogy SPECIMEN FROM INTERVERTEBRAL DISC / Unknown 10/02/2018 3:14 PM SOLAR INSTALLER TECHNICIAN 10/03/2018 6:56 AM SOLAR INSTALLER TECHNICIAN Jennifer Kay MD LAB - PATHOLOGY/CYTO LOGY ORDERABLES [facility] [address] * BLOOD TYPE VERIFICATION (10/02/2018 10:17 AM SOLAR INSTALLER TECHNICIAN) ABO O 10/02/2018 11:07 AM SOLAR INSTALLER TECHNICIAN [facility] Rh Type Positive 10/02/2018 11:07 AM SOLAR INSTALLER TECHNICIAN [facility] Blood Bank BLOOD SPECIMEN / Unknown Lab Venipuncture / Unknown 10/02/2018 10:17 AM SOLAR INSTALLER TECHNICIAN 10/02/2018 10:38 AM SOLAR INSTALLER TECHNICIAN Jennifer Kay MD LAB - BLOOD BANK ORD ERABLES Performing Organization Address City/[facility]/ZIP Co de Phone Number [facility] [address] documented in this encounter Visit Diagnoses Diagnosis Cervical stenosis of spinal canal- Primary Spinal stenosis in cervical region Herniated nucleus pulposus, C3-4 left Displacement of cervical intervertebral disc without myelopathy Osteoarthritis of cervical spine, unspecified spinal osteoarthritis complication status Stenosis of cervical spine Spinal stenosis in cervical region Cervical stenosis of spinal canal Spinal stenosis in cervical region documented in this encounter Administered Medications Inactive Administered Medications - up to 3 most recent administrations Medication Order MAR Action Action Date Dose Rate Site 0.9% NaCl infusion at 125 mL/hr, Intravenous, CONTINUOUS, Starting on Mon10/02/18 at 1930, Until Mon10/03/18 at 0845, Post-op Current Rate 10/03/2018 7:37 AM SOLAR INSTALLER TECHNICIAN 125 m L/hr Current Rate 10/03/2018 6:42 AM SOLAR INSTALLER TECHNICIAN 125 mL/hr Restarted 10/03/2018 5:51 AM SOLAR INSTALLER TECHNICIAN 125 mL/hr aspirin (ASPIRIN) chew tablet 81 mg 81 mg, Oral, DAILY, 365 doses, First dose on Mon10/02/18 at 1930, Last dose on Mon10/01/19 at 0900, Post-op $ Given 10/03/2018 9:38 AM SOLAR INSTALLER TECHNICIAN 81 mg $ Given 10/02/2018 7:48 PM SOLAR INSTALLER TECHNICIAN 81 mg bisacodyl (DULCOLAX) suppository 10 mg 10 mg, Rectal, DAILY PRN, Constipation, Starting on Mon10/02/18 at 1929, Until Mon10/03/18 at 1652, Use MOM first. If MOM ineffective then use bisacodyl. If bisacodyl ineffective use Fleets enema. Use rectal if oral is ineffective, or patient is unable to take oral medications., Post-op bisacodyl EC (DULCOLAX) tablet 5 mg 5 mg, Oral, DAILY PRN, Constipation, Starting on Mon10/02/18 at 1929, Until Mon10/03/18 at 1652, Use MOM first. If MOM ineffective then use bisacodyl. If bisacodyl ineffective use Fleets enema., Post-op ceFAZolin (ANCEF) 2,000 mg in 50 ml IVPB 2,000 mg (2 g), at 100 mL/hr, Intravenous, EVERY 8 HOURS, 2 doses, First dose on Mon10/02/18 at 2200, Last dose on Mon10/03/18 at 0600, Last dose to be completed within 24 hours of close of incision., Indication for anti-infective therapy: Surgical prophylaxis, Post-op Current Rate 10/03/2018 6:12 AM SOLAR INSTALLER TECHNICIAN 100 mL/hr $ New Bag/Syringe 10/03/2018 6:11 AM SOLAR INSTALLER TECHNICIAN 2,000 mg 100 mL /hr Current Rate 10/02/2018 9:55 PM SOLAR INSTALLER TECHNICIAN 100 mL/hr docusate sodium (COLACE) capsule 100 mg 100 mg, Oral, 2 TIMES DAILY, First dose on Mon10/02/18 at 2100, Until Discontinued, Post-op $ Given 10/03/2018 9:38 AM SOLAR INSTALLER TECHNICIAN 100 mg $ Given 10/02/2018 9:27 PM SOLAR INSTALLER TECHNICIAN 100 mg ezetimibe-simvastatin (VYTORIN) 10-10 MG tablet 1 tablet 1 tablet, Oral, AT BEDTIME, 365 doses, First dose on Mon10/02/18 at 2245, Last dose on Mon10/01/19 at 2100 $ Given 10/02/2018 10:18 PM SOLAR INSTALLER TECHNICIAN 1 tablet famotidine (PEPCID) injection 20 mg 20 mg, Intravenous, PRE-OP ONCE, 1 dose, On Mon10/02/18 at 0956, Dilute 2 mL of injection with 0.9% NaCl or D5W solution to a volume of 5 to 10 ml. Push over a period of at least 2 minutes., Pre-op $ Given 10/02/2018 10:24 AM SOLAR INSTALLER TECHNICIAN 20 mg HYDROmorphone (DILAUDID) 20 mg/100ml UNIFORM FORCE CAPTAIN Intravenous, UNIFORM FORCE CAPTAIN, Starting on Mon10/02/18 at 1745, Until Mon10/03/18 at 0845, - Bolus Dose:0.5 mg - UNIFORM FORCE CAPTAIN Dose: 0.1 mg - Lockout: 20 minutes - 1 hour limit: 0.7 mg - Continuous Dose: 0.4 mg/hr. If respiratory depression is present (less than 8/minute), stop UNIFORM FORCE CAPTAIN and administer naloxone (NARCAN) 0.4 mg every 30 seconds PRN up to 2 mg. Administer 100% oxygen while respiratory depression persists. NOTIFY PHYSICIAN IMMEDIATELY., Post-op $ New Bag/Syringe 10/02/2018 6:01 PM SOLAR INSTALLER TECHNICIAN lactated ringers infusion at 20 mL/hr, Intravenous, PRE-OP CONTINUOUS, Starting on Mon10/02/18 at 1000, Until Mon10/02/18 at 1857, Pre-op $ New Bag/Syringe 10/02/2018 4:35 PM SOLAR INSTALLER TECHNICIAN $ New Bag/Syringe 10/02/2018 1:15 PM SOLAR INSTALLER TECHNICIAN $ New Bag/Syringe 10/02/2018 10:19 AM SOLAR INSTALLER TECHNICIAN 20 mL /hr lidocaine (XYLOCAINE MPF) 1 % injection 0.2 mL 0.2 mL, Infiltration, PRE-OP MULTIPLE, 3 doses, Starting on Mon10/02/18 at 0956, Until Mon10/02/18 at 1857, May be used (0.2 ml locally to anesthetize prior to insertion)., Pre-op $ Given 10/02/2018 10:12 AM SOLAR INSTALLER TECHNICIAN 0.2 mL magnesium hydroxide (MILK OF MAGNESIA) suspension 30 mL 30 mL, Oral, DAILY PRN, Constipation, Starting on Mon10/02/18 at 1929, Until Mon10/03/18 at 1652, Use MOM first. If MOM ineffective then use bisacodyl. If bisacodyl ineffective use Fleets enema. Shake well before using., Post-op $ Given 10/02/2018 7:48 PM SOLAR INSTALLER TECHNICIAN 30 mL midazolam (VERSED) injection 2 mg 2 mg, Intravenous, PRE-OP ONCE, 1 dose, On Mon10/02/18 at 0956, Pre-op $ Given 10/02/2018 12:18 PM SOLAR INSTALLER TECHNICIAN 2 mg oxyCODONE-acetaminophen (PERCOCET) 7.5-325 MG tablet 1 tablet 1 tablet, Oral, EVERY 4 HOURS PRN, Moderate Pain, Starting on Mon10/03/18 at 0844, Until Mon10/03/18 at 1652 oxyCODONE-acetaminophen (PERCOCET) 7.5-325 MG tablet 2 tablet 2 tablet, Oral, EVERY 4 HOURS PRN, Severe Pain, Starting on Mon10/03/18 at 0845, Until Mon10/03/18 at 1652 $ Given 10/03/2018 9:38 AM SOLAR INSTALLER TECHNICIAN 2 tablet s pantoprazole (PROTONIX) injection 40 mg 40 mg, Intravenous, DAILY, 365 doses, First dose on Mon10/02/18 at 1930, Last dose on Mon10/01/19 at 0900, For every 40 mg of pantoprazole mix with 10 mL Normal Saline (final concentration = 4 mg/mL). Inject SLOWLY over 2 min., Post-op $ Given 10/03/2018 9:38 AM SOLAR INSTALLER TECHNICIAN 40 mg $ Given 10/02/2018 7:48 PM SOLAR INSTALLER TECHNICIAN 40 mg sodium phosphate rectal (FLEET SALINE) enema 133 mL 133 mL (1 enema), Rectal, DAILY PRN, Constipation, Starting on Mon10/02/18 at 1929, Until Mon10/03/18 at 1652, Use MOM first. If MOM ineffective then use bisacodyl. If bisacodyl ineffective use Fleets enema., Post-op documented in this encounter Active and Recently Administered Medications Times are shown in SOLAR INSTALLER TECHNICIAN. Scheduled Medication Order 10/01/2018 10/02/2018 10/03/2018 aspirin (ASPIRIN) chew tablet 81 mg 81 mg, Oral, DAILY, 365 doses, First dose on Mon10/02/18 at 1930, Last dose on Mon10/01/19 at 0900, Post-op 1948 ($ Given - Provider: Gee Chávez RN) 0938 ($ Given - Provider: Kaci Diaz RN) ceFAZolin (ANCEF) 2,000 mg in 50 ml IVPB (COMPLETED) 2,000 mg (2 g), at 100 mL/hr, Intravenous, ONCE, 1 dose, On Mon10/02/18 at 0945, Indication for anti-infective therapy: Surgical prophylaxis, Pre-op 1240 ($ Given - Provider: Jaz العراقي APRN-SILVICULTURE TEACHER) ceFAZolin (ANCEF) 2,000 mg in 50 ml IVPB (COMPLETED) 2,000 mg (2 g), at 100 mL/hr, Intravenous, EVERY 8 HOURS, 2 doses, First dose on Mon10/02/18 at 2200, Last dose on Mon10/03/18 at 0600, Last dose to be completed within 24 hours of close of incision., Indication for anti-infective therapy: Surgical prophylaxis, Post-op 2153 ($ New Bag/Syringe - Provider: Gee Chávez RN)2155 (Current Rate - Provider: Gee Chávez RN)2209 (Stopped - Provider: Gee Chávez RN)2225 (Paused - Provider: Gee Chávez RN) 0611 ($ New Bag/Syringe - Provider: Gee Chávez RN)0612 (Current Rate - Provider: Gee Chávez RN)0642 (Stopped - Provider: Gee Chávez RN)0647 (Stopped - Provider: Gee Chávez RN) docusate sodium (COLACE) capsule 100 mg 100 mg, Oral, 2 TIMES DAILY, First dose on Mon10/02/18 at 2100, Until Discontinued, Post-op 7 ($ Given - Provider: Gee Chávez RN) 0938 ($ Given - Provider: Kaci Diaz RN) ezetimibe-simvastatin (VYTORIN) 10-10 MG tablet 1 tablet 1 tablet, Oral, AT BEDTIME, 365 doses, First dose on Mon10/02/18 at 2245, Last dose on Mon10/01/19 at 2100 2218 ($ Given - Provider: Gee Chávez RN) famotidine (PEPCID) injection 20 mg (COMPLETED) 20 mg, Intravenous, PRE-OP ONCE, 1 dose, On Mon10/02/18 at 0956, Dilute 2 mL of injection with 0.9% NaCl or D5W solution to a volume of 5 to 10 ml. Push over a period of at least 2 minutes., Pre-op 1024 ($ Given - Provider: Patsy Adams, RN) lidocaine (XYLOCAINE MPF) 1 % injection 0.2 mL (CANCELED) 0.2 mL, Infiltration, PRE-OP MULTIPLE, 3 doses, Starting on Mon10/02/18 at 0956, Until Mon10/02/18 at 1857, May be used (0.2 ml locally to anesthetize prior to insertion)., Pre-op 1012 ($ Given - Provider: Patsy Adams, RN) midazolam (VERSED) injection 2 mg (COMPLETED) 2 mg, Intravenous, PRE-OP ONCE, 1 dose, On Mon10/02/18 at 0956, Pre-op 1218 ($ Given - Provider: Patsy Adams, RN) pantoprazole (PROTONIX) injection 40 mg 40 mg, Intravenous, DAILY, 365 doses, First dose on Mon10/02/18 at 1930, Last dose on Mon10/01/19 at 0900, For every 40 mg of pantoprazole mix with 10 mL Normal Saline (final concentration = 4 mg/mL). Inject SLOWLY over 2 min., Post-op 194 ($ Given - Provider: Gee Chávez RN) 0938 ($ Given - Provider: Kaci Diaz RN) Continuous Medication Order 10/01/2018 10/02/2018 10/03/2018 0.9% NaCl infusion (CANCELED) at 125 mL/hr, Intravenous, CONTINUOUS, Starting on Mon10/02/18 at 1930, Until Mon10/03/18 at 0845, Post-op 194 ($ New Bag/Syringe - Provider: Gee Chávez RN)194 (Current Rate - Provider: Gee Chávez RN)194 (Current Rate - Provider: Gee Chávez RN)222 (Current Rate - Provider: Gee Chávez RN) 012 (Current Rate - Provider: Gee Chávez RN)0135 (Current Rate - Provider: Gee Chávez RN)0136 (Current Rate - Provider: Gee Chávez RN)0336 (Current Rate - Provider: Christopher L Chávez, RN)0348 (Current Rate - Provider: Gee Chávez RN)0350 (Current Rate - Provider: Gee Chávez RN)0350 ($ New Bag/Syringe - Provider: Gee Chávez RN)0350 (Current Rate - Provider: Gee Chávez RN)0350 (Current Rate - Provider: Gee Chávez RN)0551 (Current Rate - Provider: Gee Chávez RN)0551 (Paused - Provider: Gee Chávez RN)0551 (Restarted - Provider: Gee Chávez RN)0642 (Current Rate - Provider: Gee Chávez RN)0737 (Current Rate - Provider: Gee Chávez RN)0933 (Stopped - Provider: Kaci Diaz RN) HYDROmorphone (DILAUDID) 20 mg/100ml UNIFORM FORCE CAPTAIN (CANCELED) Intravenous, UNIFORM FORCE CAPTAIN, Starting on Mon10/02/18 at 1745, Until Mon10/03/18 at 0845, - Bolus Dose:0.5 mg - UNIFORM FORCE CAPTAIN Dose: 0.1 mg - Lockout: 20 minutes - 1 hour limit: 0.7 mg - Continuous Dose: 0.4 mg/hr. If respiratory depression is present (less than 8/minute), stop UNIFORM FORCE CAPTAIN and administer naloxone (NARCAN) 0.4 mg every 30 seconds PRN up to 2 mg. Administer 100% oxygen while respiratory depression persists. NOTIFY PHYSICIAN IMMEDIATELY., Post-op 1801 ($ New Bag/Syringe - Provider: Angela Manning RN) lactated ringers infusion (CANCELED) at 20 mL/hr, Intravenous, PRE-OP CONTINUOUS, Starting on Mon10/02/18 at 1000, Until Mon10/02/18 at 1857, Pre-op 1019 ($ New Bag/Syringe - Provider: Patsy Adams RN)1315 ($ New Bag/Syringe - Provider: Jaz العراقي APRN-SILVICULTURE TEACHER)1635 ($ New Bag/Syringe - Provider: Anupam Valdez APRN-SILVICULTURE TEACHER)1726 (Anesthesia Volume Adjustment - Provider: Rasheed Abraham APRN-SILVICULTURE TEACHER) PRN Medication Order 10/01/2018 10/02/2018 10/03/2018 acetaminophen (TYLENOL) tablet 650 mg 650 mg, Oral, EVERY 4 HOURS PRN, Fever, For temperature GREATER than 101 , Starting on Mon10/02/18 at 192, Until Mon10/03/18 at 1652, Maximum allowable Acetaminophen amount = 4 Grams (4000 mg) / 24 hours., Post-op mfcekobs-hwtxaesze-cteacsmxn ne (MAALOX;MYLANTA) suspension 20 mL 20 mL, Oral, EVERY 6 HOURS PRN, GI Upset, Starting on Mon10/02/18 at 192, Until Mon10/03/18 at 1652, Shake well before using., Post-op bacitracin 100,000 Units in NaCl 0.9 % 1,000 mL irrigation (CANCELED) PRN, Starting on Mon10/02/18 at 1341, Until Mon10/02/18 at 1728, Intra-op 1341 ($ Given - Provider: Jennifer Kay MD)1610 ($ Given - Provider: Jennifer Kay MD) bisacodyl (DULCOLAX) suppository 10 mg(Linked Group 1) 10 mg, Rectal, DAILY PRN, Constipation, Starting on Mon10/02/18 at 1929, Until Mon10/03/18 at 1652, Use MOM first. If MOM ineffective then use bisacodyl. If bisacodyl ineffective use Fleets enema. Use rectal if oral is ineffective, or patient is unable to take oral medications., Post-op 1947 (See Alternative - Provider: Gee Chávez RN) bisacodyl EC (DULCOLAX) tablet 5 mg(Linked Group 1) 5 mg, Oral, DAILY PRN, Constipation, Starting on Mon10/02/18 at 1929, Until Mon10/03/18 at 1652, Use MOM first. If MOM ineffective then use bisacodyl. If bisacodyl ineffective use Fleets enema., Post-op 1947 (See Alternative - Provider: Gee Chávez RN) bupivacaine 0.5% - EPINEPHrine 1:200,000 (PF) injection (CANCELED) PRN, Starting on Mon10/02/18 at 1341, Until Mon10/02/18 at 1728, Intra-op 1341 ($ Given - Provider: Jennifer Kay MD) cyclobenzaprine (FLEXERIL) tablet 5 mg 5 mg, Oral, 3 TIMES DAILY PRN, Muscle Spasms, Starting on Mon10/02/18 at 192, Until Mon10/03/18 at 165, Post-op diphenhydrAMINE (BENADRYL) capsule 25 mg 25 mg, Oral, EVERY 6 HOURS PRN, Itching, Starting on Mon10/02/18 at 1929, Until Mon10/03/18 at 1652, Post-op magnesium hydroxide (MILK OF MAGNESIA) suspension 30 mL(Linked Group 1) 30 mL, Oral, DAILY PRN, Constipation, Starting on Mon10/02/18 at 1929, Until Mon10/03/18 at 165, Use MOM first. If MOM ineffective then use bisacodyl. If bisacodyl ineffective use Fleets enema. Shake well before using., Post-op 1947 ($ Given - Provider: Gee Chávez RN) naloxone (NARCAN) injection 0.4 mg 0.4 mg, Intravenous, PRN, Other, respiratoryrate less than 8, Starting on Mon10/02/18 at 1929, Until Mon10/03/18 at 165, If respiratory rate < 8/min administer naloxone (Narcan) 0.4 mg IV STAT, Post-op ondansetron (ZOFRAN) injection 4 mg 4 mg, Intravenous, EVERY 4 HOURS PRN, Nausea/Vomiting, Starting on Mon10/02/18 at 1929, Until Mon10/03/18 at 1652, Post-op oxyCODONE-acetaminophen (PERCOCET) 7.5-325 MG tablet 1 tablet 1 tablet, Oral, EVERY 4 HOURS PRN, Moderate Pain, Starting on Mon10/03/18 at 0844, Until Mon10/03/18 at 1652 oxyCODONE-acetaminophen (PERCOCET) 7.5-325 MG tablet 2 tablet 2 tablet, Oral, EVERY 4 HOURS PRN, Severe Pain, Starting on Mon10/03/18 at 0845, Until Mon10/03/18 at 1652 0938 ($ Given - Provider: Kaci Diaz RN) sodium phosphate rectal (FLEET SALINE) enema 133 mL(Linked Group 1) 133 mL (1 enema), Rectal, DAILY PRN, Constipation, Starting on Mon10/02/18 at 1929, Until Mon10/03/18 at 1652, Use MOM first. If MOM ineffective then use bisacodyl. If bisacodyl ineffective use Fleets enema., Post-op 1947 (See Alternative - Provider: Gee Chávez RN) temazepam (RESTORIL) capsule 7.5 mg 7.5 mg, Oral, AT BEDTIME PRN, Insomnia, Starting on Mon10/02/18 at 1929, Until Mon10/03/18 at 1652, Post-op thrombin (recombinant) (RECOTHROM) solution (CANCELED) PRN, Starting on Mon10/02/18 at 1341, Until Mon10/02/18 at 1728, Intra-op 1341 ($ Given - Provider: Jennifer Kay MD) Linked Groups Order Group 1: magnesium hydroxide (MILK OF MAGNESIA) suspension 30 mLJump to med 30 mL, Oral, DAILY PRN, Constipation, Starting on Mon10/02/18 at 1929, Until Mon10/03/18 at 1652, Use MOM first. If MOM ineffective then use bisacodyl. If bisacodyl ineffective use Fleets enema. Shake well before using., Post-op Or bisacodyl EC (DULCOLAX) tablet 5 mgJump to med 5 mg, Oral, DAILY PRN, Constipation, Starting on Mon10/02/18 at 1929, Until Mon10/03/18 at 1652, Use MOM first. If MOM ineffective then use bisacodyl. If bisacodyl ineffective use Fleets enema., Post-op Or bisacodyl (DULCOLAX) suppository 10 mgJump to med 10 mg, Rectal, DAILY PRN, Constipation, Starting on Mon10/02/18 at 1929, Until Mon10/03/18 at 1652, Use MOM first. If MOM ineffective then use bisacodyl. If bisacodyl ineffective use Fleets enema. Use rectal if oral is ineffective, or patient is unable to take oral medications., Post-op Or sodium phosphate rectal (FLEET SALINE) enema 133 mLJump to med 133 mL (1 enema), Rectal, DAILY PRN, Constipation, Starting on Mon10/02/18 at 1929, Until Mon10/03/18 at 1652, Use MOM first. If MOM ineffective then use bisacodyl. If bisacodyl ineffective use Fleets enema., Post-op documented in this encounter Care Teams Branch Coordinator Relationship Specialty Start Date End Date Yosvany Gonsalez MD [address] [place] [address] [place] [phone] PCP - General Internal Medicine 04/08/13 09/03/19 documented as of this encounter
--- OUTSIDE RECORDS SUMMARY | 2024-11-02 07:28 | XMS_ITS | Encounter Summary ---
Author Organization [facility] Address [address] [place] [address] Care Team Providers Care Runner Man Name Role Phone Yosvany Gonsalez MD Primary Care Provider [phone] Encounter Details Date Type Department Care Team (Late st Contact Info) Description 11/27/2018 Orders Only [facility] - Family Medicine [address] [place] [phone] Yosvany Gonsalez MD [address] [place] [phone] Social History Tobacco Use Types Packs/Day Years [...] Procedure Name Priority Date/Time Associated Diagnosis Comments CBC W AUTO DIFFERENTIAL 11/27/2018 7:45 AM ROLL WINDER COMPREHENSIVE METABOLIC PANEL 11/27/2018 7:45 AM ROLL WINDER URIC ACID BLOOD 11/27/2018 7:39 AM ROLL WINDER TSH 11/27/2018 7:39 AM ROLL WINDER LIPID PROFILE 11/27/2018 7:39 AM ROLL WINDER documented in this encounter Results * CBC WITH DIFFERENTIAL (11/27/2018 7:45 AM ROLL WINDER) White Blood Cell Count 4.7 3.8 - 10.8 Thousand/u L [facility] RBC 4.48 4.20 - 5.80 Million/uL [facility] Hemoglobin 14.1 13.2 - 17.1 g/dL [facility] Hematocrit 41.3 38.5 - 50.0 % [facility] MCV 92.2 80.0 - 100.0 fL [facility] MCH 31.5 27.0 - 33.0 pg [facility] MCHC 34.1 32.0 - 36.0 g/dL [facility] RDW 12.6 11.0 - 15.0 % [facility] Platelet Count 265 140 - 400 Thousand/u L [facility] MPV 10.9 7.5 - 12.5 fL [facility] Neutrophil Absolute 2374 1500 - 7800 cells/uL [facility] Lymphocytes Absolute 1697 850 - 3900 cells/uL [facility] Absolute Monocytes 545 200 - 950 cells/uL [facility] Eosinophils Absolute 42 15 - 500 cells/uL [facility] Basophils Absolute 42 0 - 200 cells/uL [facility] Granulocytes % 50.5 % [facility] Lymphocytes % 36.1 % [facility] Monocytes % 11.6 % [facility] Eosinophils % 0.9 % [facility] Basophils % 0.9 % [facility] Comment: Test Performed at: [facility] [address] [place] [address] ??[phone] MICHEL LEO DO,MPH 11/27/2018 7:45 AM ROLL WINDER 11/27/2018 7:46 AM ROLL WINDER Yosvany Gonsalez MD LAB - HEMATOLOGY ORD ERABLES [facility] [address] [place] [address] * COMPREHENSIVE METABOLIC PANEL (11/27/2018 7:45 AM ROLL WINDER) Glucose 96 65 - 99 mg/dL [facility] Comment: ? Fasting reference interval BUN 17 7 - 25 mg/dL [facility] Creatinine 0.87 0.70 - 1.25 mg/dL [facility] Comment: For patients >49 years of age, the reference limit for Creatinine is approximately 13% higher for people identified as -Martiniquais. eGFR by MDRD 91 > OR = 60 mL/min/1 .73m2 [facility] eGFR by MDRD 106 > OR = 60 mL/min/1 .73m2 [facility] BUN/Creatinine Ratio NOT APPLICABLE (calc) [facility] Sodium 142 135 - 146 mmol/L [facility] Potassium 4.4 3.5 - 5.3 mmol/L [facility] Chloride 106 98 - 110 mmol/L [facility] CO2 29 20 - 32 mmol/L [facility] Calcium 9.3 8.6 - 10.3 mg/dL [facility] Protein Total 7.5 6.1 - 8.1 g/dL [facility] Albumin 4.6 3.6 - 5.1 g/dL [facility] Globulin Total 2.9 1.9 - 3.7 g/dL (calc) [facility] Albumin/Globulin Ratio 1.6 1.0 - 2.5 (calc) [facility] Bilirubin Total 0.7 0.2 - 1.2 mg/dL [facility] Alkaline Phosphatase 46 40 - 115 U/L [facility] AST 15 10 - 35 U/L [facility] ALT 17 9 - 46 U/L [facility] Comment: Test Performed at: [facility] [id number] [place], [place] ??[phone] MICHEL LEO DO,MPH 11/27/2018 7:45 AM ROLL WINDER 11/27/2018 7:46 AM ROLL WINDER Yosvany Gonsalez MD LAB - CHEMISTRY [facility] [address] [place] [address] * TSH (11/27/2018 7:39 AM ROLL WINDER) Pathologist [facility] TSH 2.25 0.40 - 4.50 mIU/L [facility] Comment: REPORT COMMENT: FASTING:YES Test Performed at: [facility] [place], [place] ??[phone] MICHEL LEO DO,MPH 11/27/2018 7:39 AM ROLL WINDER 11/27/2018 7:41 AM ROLL WINDER Yosvany Gonsalez MD LAB - CHEMISTRY [facility] AD[facility] Performing Organization Address [facility] Co de Phone Number [facility] [phone] [place] [phone] * URIC ACID BLOOD (11/27/2018 7:39 AM ROLL WINDER) Uric Acid 6.4 4.0 - 8.0 mg/dL [facility] Comment: Therapeutic target for gout patients: <6.0 mg/dL ?? Test Performed at: [facility] [id number] [place], [place] ??[phone] MICHEL LEO DO,MPH 11/27/2018 7:39 AM ROLL WINDER 11/27/2018 7:41 AM ROLL WINDER Yosvany Gonsalez MD LAB - CHEMISTRY [facility] AD[facility] Performing Organization Address [facility] de Phone Number [facility] [id number] [place] [phone] * (ABNORMAL) LIPID PROFILE (11/27/2018 7:39 AM ROLL WINDER) Cholesterol 204(H) <200 mg/dL [facility] HDL Cholesterol 56 >40 mg/dL [facility] Triglycerides 105 <150 mg/dL [facility] LDL Calculated 127(H) mg/dL (calc) [facility] Comment: Reference range: <100 Desirable range <100 mg/dL for primary prevention; ?? <70 mg/dL for patients with CHD or diabetic patients with > or = 2 CHD risk factors. LDL-C is now calculated using the Estela calculation, which is a validated novel method providing better accuracy than the Friedewald equation in the estimation of LDL-C. Armani STEPHEN et al. RODOLFO. 2013;310(19): 2143-2746 (http://education.Vineloop.aScentias/faq/ZXC675) CHOL/HDLC RATIO 3.6 <5.0 (calc) [facility] Non HDL Cholesterol 148(H) <130 mg/dL (calc) [facility] Comment: For patients with diabetes plus 1 major ASCVD risk factor, treating to a non-HDL-C goal of <100 mg/dL (LDL-C of <70 mg/dL) is considered a therapeutic option. Test Performed at: [facility] [address] [place], [place] ??[phone] MICHEL LEO DO,MPH 11/27/2018 7:39 AM ROLL WINDER 11/27/2018 7:41 AM ROLL WINDER Yosvany Gonsalez MD LAB - CHEMISTRY [facility] Organization Address City/State/ZIP Co de Phone Number [facility] [address] [place] [address] documented in this encounter Visit Diagnoses Not on filedocumented in this encounter Care Teams Runner Man Relationship Specialty Start Date End Date Yosvany Gonsalez MD [address] [place] [phone] PCP - General Internal Medicine 04/08/13 09/03/19 documented as of this encounter
--- OUTSIDE RECORDS SUMMARY | 2024-11-02 07:29 | XMS_ITS | Encounter Summary ---
Author Organization [facility] Address [address] [place] [address] Care Team Providers Care County Court Judge Name Role Phone Yosvany Gonsalez MD Primary Care Provider [phone] Encounter Details Date Type Department Care Team (Latest Contact Info) Description 09/25/2018 11:00 AM SUPPLY OFFICER - 09/25/2018 11:59 PM SUPPLY OFFICER Hospital Encounter [facility] [address] [place] [phone] Chris Kay MD [address] [place] [phone] Discharge Disposition: Home or Self Care Anesthesia Record Procedure Summary Procedure Name Responsible Anesthesiologist Anesthesia Start Time Anesthesia Stop Time DISCECTOMY WITH FUSION ANTERIOR CERVICAL (ACDF) MULTI-LEVEL C3-4, C6-7 Addison Hicks MD 10/02/18 1240 10/02/18 1731 Events Date Time Event Comment 10/02/2018 0950 1240 An Start 1240 An Start Data 1244 PT Reassessment 1247 An Induction 1249 An Intubation 1327 Timeout Anesthesia part icipated in timeout at the time documented in the record by nursing. 1335 Incision 1504 Quick Note Pt warmer off 1640 an alejandro now REAGAN Abraham, assumes care after report 1722 An Emergence 1722 Extubation 1722 Electnc Sig 1722 an stop data 1722 ANPTO2 1726 Handoff 1731 An Stop Meds * Agents No agents on file. * Blood No blood administrations on file. Lines, Drains, and Airways Type Details Placement Removal Peripheral IV Date: 10/02/18; Time : 1013; Orientation: Left; Placed By: Patsy FUENTES; Tolerance: Well 10/02/18 1013 by Patsy Adams RN 10/03/18 1430 by Kaci Diaz RN ETT Date: 10/02/18; Time : 1249; Placed By: SUSY; Vent: easy mask; Induction: Standard IV; Blade Type: Ariana; Blade Size: 3; Laryngoscopy View: Grade 2 (partial cords); Intubation Adjuncts: Stylet; Tube: Endotracheal Tube; Placement: Oral; Tube Type: Cuffed-inflated; Tube Size(mm): 8 MM; Depth of Insertion: 21 CM; Measured From: lips; Attempts: 1; Cuff Infated: Air; Cuff Vol(mL): 6 mL; Verified By: Direct visualization, Bilateral breath sounds, Chest Auscultation, CO2 Monitor 10/02/18 1249 by Jaz العراقي APRN-RETAIL PHARMACIST 10/02/18 1722 by Anupam Valdez ASPHALT COATER-RETAIL PHARMACIST Procedural Site (Incision) 10/02/18; 1616; Neck; 10/03/18; 2152 10/02/18 1616 by Francisco J Sexton RN 10/03/18 2152 by Laura, Auto Release documented in this encounter Social History Tobacco Use Types Packs/Day Years Used Date Smoking Tobacco: Former Cigarettes Q uit: 08/07/2018 Smokeless Tobacco: Never Alcohol Use Standard Drinks/Week Comments Yes 5 (1 standard drink = 0.6 oz pur e alcohol) Sex and Gender Information Value Date Recorded Sex Assigned at Not on file Gender Identity Not on file Sexual Orientation Not on file documented as of this encounter Last Filed Vital Signs Vital Sign Reading Time Taken Comments Blood Pressure 158/84 09/25/2018 11:37 AM SUPPLY OFFICER Pulse 64 09/25/2018 11:37 AM SUPPLY OFFICER Temperature 36.3 ??C (97.3 ??F) 09/25/2018 11:[address] Respiratory Rate 16 09/25/2018 11:37 AM SUPPLY OFFICER Oxygen Saturation 99% 09/25/2018 11:37 AM SUPPLY OFFICER Inhaled Oxygen Concentration - - Weight 78.9 kg (174 lb) 09/25/2018 11:37 AM SUPPLY OFFICER Height 170.2 cm (5' 7 ) 09/25/2018 11:37 AM SUPPLY OFFICER Body Mass Index 27.25 09/25/2018 11:37 AM SUPPLY OFFICER documented in this encounter Medications at Time of Discharge Medication Sig Dispensed Refills Start Date End Date aspirin (ASPIRIN) 81 MG chew tablet Take 81 mg by mouth once daily Cholecalciferol (VITAMIN D) 2000 UNITS CAPS capsule Take 2,000 Units by mouth once daily Alba-3 Fatty Acids (FISH OIL) 1000 MG capsule Take by mouth once daily oxyCODONE-acetaminophe n (PERCOCET) 7.5-325 MG tablet Take 1-2 tablets by mouth every 4 hours as needed for Pain (for moderate to severe pain) 120 tablet 10/02/2018 vitamin E (TOCOPHERYL) 400 UNIT tablet Take 400 Units by mouth once daily ezetimibe-simvastatin (VYTORIN) 10-10 MG tablet Take 1 tablet by mouth at bedtime 10/03/2018 pantoprazole EC (PROTONIX) 40 MG tablet TAKE 1 TABLET ONCE DAILY 90 tablet 3 12/15/2017 10/02/2018 documented as of this encounter Nursing Notes * Jack Blackmon RN - 09/25/2018 11:58 AM CST Name, Date of , and procedure verified with patient- DISCECTOMY WITH FUSION ANTERIOR CERVICAL (ACDF) MULTI-LEVEL C3-4, C6-7 . Instructed patient should enter at the patient entrance the day of his surgery at his scheduled arrival time and check in at the desk. Surgery Department will call 2 business days prior to surgery with arrival time. Instructed patient not wear any jewelry or bring valuables day of surgery. CHlorhexidine soap given to patient with instructions for 3 presurgical showers. Instructed patient to have nothing to eat or drink after 11:30pm the night before procedure- this includes no gum, candy , or mints. Patient stated he stopped his Aspirin and fish oil two weeks ago. Instructed patient to bring cpap machine with them to the hospital day of surgery.Patient voices understanding of all instructions given. All questions answered. LY OFFICER documented in this encounter Plan of Treatment Not on file documented as of this encounter Procedures Procedure Name Priority Date/Time Associated Diagnosis Comments MRSA + SA DNA PCR PANEL Routine 09/25/2018 11:27 AM SUPPLY OFFICER Herniated nucleus pulposus, C3-4 left Cervical stenosis of spine TYPE + SCREEN PANEL Routine 09/25/2018 1 1:27 AM SUPPLY OFFICER Herniated nucleus pulposus, C3-4 left Cervical stenosis of spine HGB HCT PANEL Routine 09/25/2018 11:27 AM SUPPLY OFFICER Herniated nucleus pulposus, C3-4 left Cervical stenosis of spine Chronic obstructive pulmonary disease, unspecified COPD type (HCC) EKG 12-LEAD Routine 09/25/2018 11:22 AM SUPPLY OFFICER Herniated nucleus pulposus, C3-4 left Cervical stenosis of spine Chronic obstructive pulmonary disease, unspecified COPD type (HCC) documented in this encounter Results * HGB HCT PANEL (09/25/2018 11:27 AM SUPPLY OFFICER) Hemoglobin 14.8 13.7 - 17.5 gm/dL 09/25/2018 11:39 AM SUPPLY OFFICER [facility] Hematocrit 43.6 40.1 - 51.0 % 09/25/2018 11:39 AM SUPPLY OFFICER [facility] Blood BLOOD SPECIMEN / Unknown Venipuncture / Unknown 09/25/2018 11:27 AM SUPPLY OFFICER 09/25/2018 11:34 AM SUPPLY OFFICER Ke Browne MD LAB - HEMATOLOGY ORD ERABLES Performing Organization Address City/[facility] Co de Phone Number [facility] [address] * TYPE + SCREEN PANEL (09/25/2018 11:27 AM SUPPLY OFFICER) ABO O 09/25/2018 12:47 PM SUPPLY OFFICER [facility] Rh Type Positive 09/25/2018 12:47 PM SUPPLY OFFICER [facility] Comment:History checked. Col lect retype. Antibody Screen Negative 09/25/2018 12:47 PM SUPPLY OFFICER [facility] Blood Bank BLOOD SPECIMEN / Unknown Venipuncture / Unknown 09/25/2018 11:27 AM SUPPLY OFFICER 09/25/2018 11:34 AM SUPPLY OFFICER Ke Browne MD LAB - BLOOD BANK ORD ERABLES Performing Organization Address City/[facility]/ZIP Co de Phone Number [facility] [address] * MRSA + SA DNA PCR PANEL (09/25/2018 11:27 AM SUPPLY OFFICER) Pathologist [facility] MRSA DNA by PCR Negative Negative 09/25/2018 12:47 PM SUPPLY OFFICER [facility] Staph aureus PCR Negative Negative 09/25/2018 12:47 PM SUPPLY OFFICER [facility] Microbiology SPECIMEN FROM NASAL FOSSAE / Unknown Collection / Unknown 09/25/2018 11:27 AM SUPPLY OFFICER 09/25/2018 11:34 AM SUPPLY OFFICER Narrative [facility] - 09/25/2018 12:47 PM SUPPLY OFFICER Staphylococcus aureus (SA) target DNA not detected. [...] Kay MD LAB - MICROBIOLOGY O RDERABLES [facility] [address] * EKG 12-LEAD (09/25/2018 11:22 AM SUPPLY OFFICER) Pathologist [facility] Ventricular Rate 60 BPM [facility] Atrial Rate 60 BPM [facility] P-R Interval 180 ms [facility] QRS Duration ms 86 ms [facility] Q-T Interval ms 412 ms [facility] QTC Calculation (Bezet) 412 ms [facility] Calculated P Moca 57 degrees [facility] Calculated R Moca 34 degrees [facility] Calculated T Moca 53 degrees [facility] Interpretation EKG Normal sinus rhythm Normal ECG When compared with ECG of 16-NOV-2015 07:47, changes in the configuration of Precordial leads is probably due to lead placement differences Confirmed by MD JOHN, [facility] ([id number]) on 09/26/2018 10:40:54 AM [facility] 09/25/2018 11:2 2 AM SUPPLY OFFICER 09/26/2018 10:40 AM SUPPLY OFFICER Ke Browne MD ECG ORDERABLES [facility] documented in this encounter Visit Diagnoses Diagnosis Herniated nucleus pulposus, C3-4 left- Primary Displacement of cervical intervertebral disc without myelopathy Cervical stenosis of spine Spinal stenosis in cervical region Chronic obstructive pulmonary disease, unspecified COPD type (HCC) documented in this encounter Care Teams County Court Judge Relationship Specialty Start Date End Date Yosvany Gonsalez MD [address] [place] [phone] PCP - General Internal Medicine 04/08/13 09/03/19 documented as of this encounter
--- OUTSIDE RECORDS SUMMARY | 2024-11-02 07:29 | XMS_ITS | Encounter Summary ---
Author Organization [facility] Address [address] [place] [address] Care Team Providers Care Tomography Technologist Name Role Phone Yosvany Gonsalez MD Primary Care Provider Reason for Visit * Reason Onset Date Comments Medication Problem 01/02/2018 Encounter Details Date Type Department Care Team (Late st Contact Info) Description 01/02/2018 Telephone [facility] Medical [facility] - Family Medicine [address] [phone] Yosvany Gonsalez MD [address] [place] [address] Medication Problem Social History Tobacco Use Types Packs/Day Years Used Date Smoking Tobacco: Every Day Cigarettes Smokeless Tobacco: Never Alcohol Use Standard Drinks/Week Comments Yes 5 (1 standard drink = 0.6 oz pur e alcohol) Sex and Gender Information Value Date Recorded Sex Assigned at Not on file Gender Identity Not on file Sexual Orientation Not on file documented as of this encounter Miscellaneous Notes * Telephone Encounter - Wilma Lomeli LPN - 01/03/2018 11:31 AM CST Sent refill as requested and instructed - will follow if PA needs to be completed L PARALEGAL * Telephone Encounter - Yosvany Gonsalez MD - 01/02/2018 5:09 PM CST Let him know we can try, if insurance refuses we may not have any other option but to switch him toa different statin, we can try and we can go from there. L PARALEGAL * Telephone Encounter - Wilma Lomeli LPN - 01/02/2018 4:31 PM CST Patient came in and stated that his medication ezetimibe-simvastatin 10-10mg tablet - cause his joints to ache and he cannot take the generic version of this medication. He wanted us to do prior authorization so he could take name brand vytorin instead. Patient has previously taken in our current chart notes: Vytorin until 11/02/16 when insurance made him switch to generic. Not seeing any other cholesterol medications in chart Please advise. L PARALEGAL documented in this encounter Plan of Treatment Not on file documented as of this encounter Visit Diagnoses Not on filedocumented in this encounter Care Teams Tomography Technologist Relationship Specialty Start Date End Date Yosvany Gonsalez MD [address] [place] [phone] PCP - General Internal Medicine 04/08/13 09/03/19 documented as of this encounter
--- OUTSIDE RECORDS SUMMARY | 2024-11-02 07:29 | XMS_ITS | Encounter Summary ---
Author Organization [facility] Address [address] [place] [address] Care Team Providers Care Medical Oncologist Name Role Phone Yosvany Gonsalez MD Primary Care Provider [phone] Reason for Visit * Reason Comments Pre-op Clearance neck fusion surgery Encounter Details Date Type Department Care Team (Late st Contact Info) Description 09/21/2018 4:00 PM LEAD CASTER Office Visit [facility] - Family Medicine [address], [facility] [place] [address] Yosvany Gonsalez MD [address] [place] [address] Pre-operative clearance (Primary Dx); Mixed hyperlipidemia; High risk medications (not anticoagulants) long-term use; RANDY on CPAP; H/O nicotine dependence Social History Tobacco Use Types Packs/Day Years Used Date Smoking Tobacco: Former Cigarettes Q uit: 08/07/2018 Smokeless Tobacco: Never Tobacco Cessation:Counseling Given: Yes Alcohol Use Standard Drinks/Week Comments Yes 5 (1 standard drink = 0.6 oz pur e alcohol) Sex and Gender Information Value Date Recorded Sex Assigned at Not on file Gender Identity Not on file Sexual Orientation Not on file documented as of this encounter Last Filed Vital Signs Vital Sign Reading Time Taken Comments Blood Pressure 150/78 09/21/2018 4:19 PM LEAD CASTER Pulse 80 09/21/2018 4:19 PM LEAD CASTER Temperature 36.3 ??C (97.3 ??F) 09/21/2018 4:19 PM CS T Respiratory Rate 16 09/21/2018 4:19 PM LEAD CASTER Oxygen Saturation 95% 09/21/2018 4:19 PM LEAD CASTER Inhaled Oxygen Concentration - - Weight 79.1 kg (174 lb 6.4 oz) 09/21/2018 4:19 P M LEAD CASTER Height 170.2 cm (5' 7 ) 09/21/2018 4:19 PM LEAD CASTER Body Mass Index 27.31 09/21/2018 4:19 PM LEAD CASTER documented in this encounter Progress Notes * Yosvany Gonsalez MD - 09/21/2018 4:44 PM CST Date: 09/21/2018 Pt Name: Natan Patel : 1955 AGE: 63 y.o. SEX: male SUBJECTIVE: Chief Complaint Patient presents with ??? Pre-op Clearance neck fusion surgery History of Present Illness: Medical clearance requested for anticipated neck surgery, chronic DJD chronic pain chronic discomfort impacting lifestyle scheduled for surgery next week. Heart rate and blood pressure stable no chest pain chest tightness has quit smoking breathing and functional status at baseline, no palpitations or dizziness reported. Hyperlipidemia on statins diet doing well with no complaints. Acid reflux on Protonix watching lifestyle no recent flare-ups. Obstructive sleep apnea CPAP use reasonable impact on lifestyle remains reasonable. NO SIGNIFICANT CHANGE IN WEIGHT, NO RECENT ISSUES WITH FEVER, CHILLS. ALL MEDICATIONS WITH INSTRUCTIONS REVIEWED AT TODAY'S VISIT Current Outpatient Prescriptions Medication Sig Dispense Refill ??? Ezetimibe-Simvastatin (VYTORIN PO) Take by mouth once daily ??? pantoprazole EC (PROTONIX) 40 MG tablet TAKE 1 TABLET ONCE DAILY 90 tablet 3 ??? aspirin (ASPIRIN) 81 MG chew tablet Take 81 mg by mouth once daily ??? Bath-3 Fatty Acids (FISH OIL) 1000 MG capsule Take by mouth once daily ??? Cholecalciferol (VITAMIN D) 2000 UNITS CAPS capsule Take 2,000 Units by mouth once daily ??? vitamin E (TOCOPHERYL) 400 UNIT tablet Take 400 Units by mouth once daily No current facility-administered medications for this visit. PATIENT'S ALLERGY, PM,FSH REVIEWED AND EXTRAPOLATED FROM EPIC Allergies Allergen Reactions ??? Morphine Past Medical History: Diagnosis Date ??? Allergy ??? Chronic airway obstruction ??? Encounter for screening for malignant neoplasm of prostate ??? Esophageal reflux Past Surgical History: Procedure Laterality Date ??? COLONOSCOPY 02/04/15 3 polyps removed ??? HERNIA REPAIR, INGUINAL 02/2012 left ??? Knee Replacement ??? OTHER SURGERY dental extraction Social History Social History ??? Marital status: Spouse name: N/A ??? Number of children: 1 ??? Years of education: 12 Occupational History ??? [employer] Social History Main Topics ??? Smoking status: Former Smoker Packs/day: 0.50 Types: Cigarettes Quit date: 08/07/2018 ??? Smokeless tobacco: Never Used ??? Alcohol use 3.0 oz/week 6 Cans of beer per week ??? Drug use: No ??? Sexual activity: [...] Normal OBJECTIVE: WDWN, Alert, No Distress BP 150/78 (BP SITE: RIGHT ARM, BP POSITION: SITTING, BP CUFF SIZE: 11) Pulse 80 Temp 97.3 ??F (36.3??C) (Oral) Resp 16 Ht 1.702 m (5' 7 ) Wt 79.1 kg (174 lb 6.4 oz) SpO2 95% BMI 27.31 kg/m2 PHYSICAL EXAM: BP 150/78 (BP SITE: RIGHT ARM, BP POSITION: SITTING, BP CUFF SIZE: 11) Pulse 80 Temp 97.3 ??F (36.3??C) (Oral) Resp 16 Ht 1.702 m (5' 7 ) Wt 79.1 kg (174 lb 6.4 oz) SpO2 95% BMI 27.31 kg/m2 General appearance: alert, cooperative, no distress Head: Normocephalic, without trauma Eyes: sclera and conjunctiva clear, EOMI and PERRLA, lids normal Ears: hearing intact to voice Nose: nares open; no septal deviation is noted Throat: no mucous membrane abnormalities Neck: range of motion decreased, chronic DJD, reflexes symmetrical, sensation is intact gait is normal. no masses, thyroid not enlarged, no adenopathy [...] Recent Results (from the past 1344 hour(s)) NICOTINE + METABOLITES URINE Collection Time: 09/06/18 4:15 PM Result Value Ref Range Nicotine Urine <2 ng/mL Nornicotine Urine <2 ng/mL 3-Hydroxy Cotinine Urine <50 ng/mL Cotinine Urine <5 ng/mL Anabasine Urine <3 ng/mL ASSESSMENT: ICD-10-CM 1. Pre-operative clearance Z01.818 2. Mixed hyperlipidemia E78.2 3. High risk medications (not anticoagulants) long-term use Z79.899 4. RANDY on CPAP G47.33 Z99.89 5. H/O nicotine dependence Z87.891 PLAN: No orders of the defined types were placed in this encounter. Return if symptoms worsen or fail to improve. RECENT COMPREHENSIVE SET OF LABS INCLUDING CBC, CMP, FBS ETC WERE ALL REVIEWED, DEVIATION FROM NORMAL NOTED, QUESTIONS, CONCERNS WERE ADDRESSED . USE OF CURRENT PRESCRIPTION MEDICATIONS, IT'S MANAGEMENT AND IMPACT ON PATIENT'S HEALTH DISCUSSED. BASED ON MY CLINICAL EXAM TODAY, PATIENT'S FUNCTIONAL STATUS, NATURE OF PLANNED PROCEDURE, PT IS CONSIDERED TO BE AT AVERAGE RISK. THIS WAS CLEARLY CONVEYED, PROBLEMS WITH NOT DOING PROCEDURE WAS ALSO REVIEWED. AFTER CONSIDERING ALL PROS AND CONS PT CLEARLY WANTS TO PROCEED Yosvany Gonsalez MD CASTER documented in this encounter Plan of Treatment Not on file documented as of this encounter Visit Diagnoses Diagnosis Pre-operative clearance- Primary Preoperative examination, unspecified Mixed hyperlipidemia High risk medications (not anticoagulants) long-term use Encounter for long-term (current) use of other medications RANDY on CPAP Obstructive sleep apnea (adult) (pediatric) H/O nicotine dependence Personal history of tobacco use, presenting hazards to health documented in this encounter Care Teams Medical Oncologist Relationship Specialty Start Date End Date Yosvany Gonsalez MD [address] [phone] PCP - General Internal Medicine 04/08/13 09/03/19 documented as of this encounter
--- OUTSIDE RECORDS SUMMARY | 2024-11-02 07:29 | XMS_ITS | Encounter Summary ---
Author Organization [facility] Address [address] [place] [address] Care Team Providers Care Sports Book Writer Name Role Phone Yosvany Gonsalez MD Primary Care Provider [phone] Reason for Visit * Reason Onset Date Comments Medication Issue 04/09/2018 Encounter Details Date Type Department Care Team (Late st Contact Info) Description 04/09/2018 Telephone [facility] Medical [facility] - Family Medicine [address] [phone] Yosvany Gonsalez MD [address] [place] [phone] Medication Issue Social History Tobacco Use Types [...] on filedocumented in this encounter Care Teams Sports Book Writer Relationship Specialty Start Date End Date Yosvany Gonsalez MD [address] [place] [address] [place] [phone] PCP - General Internal Medicine 04/08/13 09/03/19 documented as of this encounter
--- OUTSIDE RECORDS SUMMARY | 2024-11-02 07:29 | XMS_ITS | Encounter Summary ---
Author Organization [facility] Address [address] [place] [address] Care Team Providers Care Financial Accounting Manager Name Role Phone GonsalezSalbador ortizgretchen Marcial MD Primary Care Provider [phone] Reason for Visit * Reason Comments Cough onset 3 wk, producti ve, sneezing, ear itching. Encounter Details Date Type Department Care Team (Late st Contact Info) Description 03/03/2018 8:00 AM CDT Office Visit [facility] [address] [place] [phone] Provider1, [facility] Cough (Primary Dx); COPD exacerbation (HCC) Social History Tobacco Use Types Packs/Day Years [...] Sign Reading Time Taken Comments Blood Pressure 142/76 03/03/2018 7:58 AM CDT Pulse 77 03/03/2018 7:58 AM CDT Temperature 36.4 ??C (97.5 ??F) 03/03/2018 7:58 AM CD T Respiratory Rate 20 03/03/2018 7:58 AM CDT Oxygen Saturation 97% 03/03/2018 7:58 AM CDT Inhaled Oxygen Concentration - - Weight 79.4 kg (175 lb) 03/03/2018 7:58 AM CDT Height - - Body Mass Index 27.41 10/24/2017 4:19 PM [employer]SA COORDINATOR documented in this encounter Patient Instructions * Patient Instructions* Galina Hummel APRN-SUDHA - 03/03/2018 8:12 AM CDT Images from the original note were not included. COPD (Chronic Obstructive Pulmonary Disease) WHAT YOU NEED TO KNOW: What is chronic obstructive pulmonary disease (COPD)? COPD is a lung disease that makes it hard foryou to breathe. It is usually a result of lung damage caused by years of irritation and inflammation in your lungs. This limits air flow in your lungs. Smoking, pollution, genetics, or a history of lung infections can increase your risk for COPD. What are the signs and symptoms of COPD? ?? Shortness of breath ?? A dry cough ?? Coughing fits that bring up mucus from your lungs ?? Wheezing and chest tightness How is COPD diagnosed? Your healthcare provider will ask about your symptoms and examine you. He orsmaryam will ask if a family member has COPD or breathing problems. He or she will ask if you are a current or former smoker. Tell your provider if you have other medical conditions, such as heart disease or asthma. Tell him or her how long you have had symptoms, what makes them worse, and how they affect your life. You may need the following: ?? Lung function tests measure the airflow in your lungs and show how well you can breathe. ?? Blood tests check for infection and measure oxygen levels in your blood. ?? A chest x-ray is done to check for other lung problems. ?? CT scan pictures may be taken of your lungs. You may be given contrast liquid to help your lungsshow up better in the pictures. Tell the healthcare provider if you have ever had an allergic reaction to contrast liquid. How is COPD treated? ?? Medicines may be used to open your airways, decrease swelling and inflammation in your lungs, ortreat an infection. You may need 2 or more medicines. A short-acting medicine relieves symptoms quickly. Long-acting medicines will control or prevent symptoms. Ask your healthcare provider for more information about the medicines you are given and how to use them safely. ?? Pulmonary rehabilitation is a program to help you manage your symptoms and improve your quality of life. It may include nutritional counseling and exercise to strengthen your lungs. ?? Oxygen may help you breathe easier and feel more alert if you have severe COPD. ?? Surgery is sometimes done if all other treatments have failed. A lung reduction is surgery to remove part of your damaged lung. A lung transplant is the replacement of your lung with a donor lung.Ask your healthcare provider for more information about surgery for COPD. What are the risks of COPD? COPD raises your risk for diabetes, high blood pressure, and heart disease. Without treatment, COPD can become life-threatening. What can I do to help make breathing easier? ?? Use pursed-lip breathing any time you feel short of breath. Take a deep breath in through your nose. Slowly breathe out through your mouth with your lips pursed for twice as long as you inhaled. You can also practice this breathing pattern while you bend, lift, climb stairs, or exercise. It slows down your breathing and helps move more air in and out of your lungs. ?? Do not smoke, and avoid others who smoke. Nicotine and other substances can cause lung irritation or damage and make it harder for you to breathe. Do not use e-cigarettes or smokeless tobacco. They still contain nicotine. Ask your healthcareprovider for information if you currently smoke and need help to quit. For support and more information: ?? [place] Phone: Web Address: www.[employer] ?? Be aware of and avoid anything that makes your symptoms worse. Stay out of high altitudes and places with high humidity. Stay inside, or cover your mouth and nose with a scarf when you are outsideduring cold weather. Stay inside on days when air pollution or pollen counts are high. Do not use aerosol sprays such as deodorant, bug spray, and hair spray. How can I manage COPD and help prevent exacerbations? COPD is a serious condition that gets worse over time. A COPD exacerbation means your symptoms suddenly get worse. It is important to prevent exacerbations. An exacerbation can cause more lung damage. COPD cannot be cured, but you can take action to feel better and prevent COPD exacerbations: ?? Protect yourself from germs. Germs can get into your lungs and cause an infection. An infection in your lungs can create more mucus and make it harder to breathe. An infection can also create swelling in your airways and prevent air from getting in. You can decrease your risk for infection by doing the following: ?? Wash your hands often with soap and water. Carry germ-killing gel with you. You can use the gel to clean your hands when soap and water are not available. ?? Do not touch your eyes, nose, or mouth unless you have washed your hands first. ?? Always cover your mouth when you cough. Cough into a tissue or your shirtsleeve so you do not spread germs from your hands. ?? Try to avoid people who have a cold or the flu. If you are sick, stay away from others as much as possible. ?? Drink more liquids. This will help to keep your air passages moist and help you cough up mucus. Ask how much liquid to drink each day and which liquids are best for you. ?? Exercise daily. Exercise for at least 20 minutes each day to help increase your energy and decrease shortness of breath. Talk to your healthcare provider about the best exercise plan for you. ?? Ask about vaccines. Your healthcare provider may recommend that you get regular flu and pneumonia vaccines. Pneumonia can become life-threatening for a person who has COPD. Ask about other vaccines you may need.Ask your healthcare provider about the flu and pneumonia vaccines. All adults should get the flu (influenza) vaccine every year as soon as it becomes available. The pneumonia vaccine isgiven to adults aged 65 or older to prevent pneumococcal disease, such as pneumonia. Adults aged 19to 64 years who are at high risk for pneumococcal disease also should get the pneumococcal vaccine.It may need to be repeated 1 or 5 years later. Call 911 if: ?? You feel lightheaded, short of breath, and have chest pain. When should I seek immediate care? ?? You are confused, dizzy, or feel faint. ?? Your arm or leg feels warm, tender, and painful. It may look swollen and red. ?? You cough up blood. When should I contact my healthcare provider? ?? You have more shortness of breath than usual. ?? You need more medicine than usual to control your symptoms. ?? You are coughing or wheezing more than usual. ?? You are coughing up more mucus, or it is a different color or has a different odor. ?? You gain more than 3 pounds in a week. ?? You have a fever, a runny or stuffy nose, and a sore throat, or other cold or flu symptoms. ?? Your skin, lips, or nails start to turn blue. ?? You have swelling in your legs or ankles. ?? You are very tired or weak for more than a day. ?? You notice changes in your mood, or changes in your ability to think or concentrate. ?? You have questions or concerns about your condition or care. CARE AGREEMENT: You have the right to help plan your care. Learn about your health condition and how it may be treated. Discuss treatment options with your caregivers to decide what care you want to receive. You always have the right to refuse treatment. The above information is an teachers aide only. It is not intended as medical advice for individual conditions or treatments. Talk to your doctor, nurse or pharmacist before following any medical regimen to see if it is safe and effective for you. ?? 2017 [employer] Information is for End User's use only and may not be sold, redistributed or otherwise used for commercial purposes. All illustrations and images included in CareNotes?? are the copyrighted property of [employer], [employer] or [employer]. documented in this encounter Progress Notes * Galina Hummel APRN-CNP - 03/03/2018 8:14 AM CDT 03/03/2018 PCP: Yosvany Gonsalez MD CC: Chief Complaint Patient presents with ??? Cough onset 3 wk, productive, sneezing, ear itching. . HPI: Natan Patel is a 62 y.o. male [facility] complaints of nonproductive cough with some shortness of breath x 3 weeks. Half pack per day smoker. Outpatient Medications Prior to Visit Medication Sig Dispense Refill ??? ezetimibe-simvastatin (VYTORIN) 10-10 MG tablet Take 1 tablet by mouth once daily NAME BRAND ONLY 90 tablet 3 ??? pantoprazole EC (PROTONIX) 40 MG tablet TAKE 1 TABLET ONCE DAILY 90 tablet 3 ??? aspirin (ASPIRIN) 81 MG chew tablet Take 81 mg by mouth once daily ??? [place]-3 Fatty Acids (FISH OIL) 1000 MG capsule Take by mouth once daily ??? Cholecalciferol (VITAMIN D) 2000 UNITS CAPS capsule Take 2,000 Units by mouth once daily ??? vitamin E (TOCOPHERYL) 400 UNIT tablet Take 400 Units by mouth once daily ??? benzonatate (TESSALON) 200 MG capsule Take 1 capsule by mouth 3 times daily as needed for Cough(Patient not taking: Reported on 03/03/2018) 30 capsule 0 ??? CHERATUSSIN AC 100-10 MG/5ML syrup No facility-administered medications prior to visit. Past Medical History: Diagnosis Date ??? Allergy ??? Chronic airway obstruction ??? Encounter for screening for malignant neoplasm of prostate ??? Esophageal reflux Past Surgical History: Procedure Laterality Date ??? COLONOSCOPY 02/04/15 3 polyps removed ??? HERNIA REPAIR, INGUINAL 02/2012 left ??? Knee Replacement ??? OTHER SURGERY dental extraction History Smoking Status ??? Current Every Day Smoker ??? Packs/day: 0.50 ??? Types: Cigarettes Smokeless Tobacco ??? Never Used History Drug Use No Allergies Allergen Reactions ??? Morphine Family History Problem Relation Age of Onset ??? Hypertension Mother ??? Heart Disease Father ??? Cancer - Other Father throat cancer Review of Systems: Pertinent items are noted in HPI Exam: BP 142/76 Pulse 77 Temp 97.5 ??F (36.4 ??C) (Oral) Resp 20 Wt 79.4 kg (175 lb) SpO2 97% BMI 27.41 kg/m2 FiO2: Physical Exam Constitutional: He is well-developed, well-nourished, and in no distress. HENT: Right Ear: Tympanic membrane, external ear and ear canal normal. Left Ear: Tympanic membrane, external ear and ear canal normal. Nose: Nose normal. Mouth/Throat: Uvula is midline, oropharynx is clear and moist and mucous membranes are normal. Cardiovascular: Normal rate and regular rhythm. Pulmonary/Chest: Effort normal. He has decreased breath sounds in the right middle field, the rightlower field, the left middle field and the left lower field. He has no wheezes. He has no rhonchi. He has no rales. Lymphadenopathy: He has no cervical adenopathy. No results found for this visit on 03/03/18. Impression/ Plan: ICD-10-CM 1. Cough R05 2. COPD exacerbation J44.1 Orders Placed This Encounter ??? albuterol HFA (PROVENTIL;VENTOLIN;PROAIR) 108 (90 BASE) MCG/ACT inhaler Sig: Inhale 2 puffs by mouth every 6 hours as needed for Shortness of Breath, Wheezing or Cough Dispense: 1 Inhaler Refill: 0 ??? amoxicillin-clavulanate (AUGMENTIN) 875-125 MG tablet Sig: Take 1 tablet by mouth 2 times daily with morning and evening meal for 10 days Dispense: 20 tablet Refill: 0 ??? methylPREDNISolone (MEDROL DOSEPAK) 4 MG tablet Sig: Take by mouth as directed Dispense: 21 tablet Refill: 0 Follow up /Instructions: Return if symptoms worsen or fail to improve. TIFFANY Michaels documented in this encounter Plan of Treatment Not on file documented as of this encounter Visit Diagnoses Diagnosis Cough- Primary COPD exacerbation (HCC) Obstructive chronic bronchitis with exacerbation documented in this encounter Care Teams Financial Accounting Manager Relationship Specialty Start Date End Date Yosvany Gonsalez MD [address] [place] [address] [phone] PCP - General Internal Medicine 04/08/13 09/03/19 documented as of this encounter
--- OUTSIDE RECORDS SUMMARY | 2024-11-02 07:29 | XMS_ITS | Encounter Summary ---
Author Organization [facility] Address [address] [place] [address] Care Team Providers Care Dealer Relationship Manager Name Role Phone Sunshine Yosvany Marcial MD Primary Care Provider [phone] Reason for Visit * Reason Comments Cough GENERALIZED BODY ACHES Encounter Details Date Type Department Care Team (Late st Contact Info) Description 10/24/2017 4:15 PM F[employer] Office Visit [facility] [address] [phone] Provider1, [facility] Fever, unspecified fever cause (Primary Dx); Body aches; Upper respiratory tract infection, unspecified type Social History Tobacco Use Types Packs/Day Years [...] Sign Reading Time Taken Comments Blood Pressure 124/68 10/24/2017 4:19 PM [employer] Pulse 109 10/24/2017 4:19 PM [employer] Temperature 37.8 ??C (100.1 ??F) 10/24/2017 4:[address] Respiratory Rate 16 10/24/2017 4:19 PM [employer] Oxygen Saturation 96% 10/24/2017 4:19 PM [employer] Inhaled Oxygen Concentration - - Weight 80.3 kg (177 lb) 10/24/2017 4:19 PM [employer] Height 170.2 cm (5' 7 ) 10/24/2017 4:19 PM [employer] Body Mass Index 27.72 10/24/2017 4:19 PM [employer] documented in this encounter Patient Instructions * Patient Instructions* Rahel Feliz PA-C - 10/24/2017 4:40 PM [employer] Images from the original note were not included. Influenza WHAT YOU NEED TO KNOW: What is influenza? Influenza (the flu) is an infection caused by the influenza virus. The flu is easily spread when an infected person coughs, sneezes, or has close contact with others. You may be able to spread the flu to others for 1 week or longer after signs or symptoms appear. What increases my risk for the flu? ?? Living with or caring for someone who has the flu ?? Living in a care home or long-term care facility ?? Living in close quarters with others ?? A medical condition such as diabetes, cancer, heart disease, or lung disease ? Age older than 50 years ?? A weak immune system caused by HIV, AIDS, an organ transplant, or another condition ?? Traveling to places where other people have the flu What are the signs and symptoms of the flu? ?? Fever and chills ?? Headaches, body aches, and muscle or joint pain ?? Cough, runny nose, and sore throat ?? Loss of appetite, nausea, vomiting, or diarrhea ?? Tiredness ?? Trouble breathing How is the flu diagnosed? Your healthcare provider will examine you and ask if you have other health conditions. Tell him if you have been around sick people or traveled recently. Tell your healthcare provider if you are . A sample of fluid may be collected from your nose or throat to be tested for the flu virus. How is the flu treated? Most people get better within a week. You may need any of the following: ?? Acetaminophen decreases pain and fever. It is available without a doctor's order. Ask how much to take and how often to take it. Follow directions. Acetaminophen can cause liver damage if not taken correctly. ?? NSAIDs , such as ibuprofen, help decrease swelling, pain, and fever. This medicine is available with or without a doctor's order. NSAIDs can cause stomach bleeding or kidney problems in certain people. If you take blood thinner medicine, always ask your healthcare provider if NSAIDs are safe foryou. Always read the medicine label and follow directions. ?? Antivirals help fight a viral infection. How can I manage my symptoms? ?? Rest as much as you can to help you recover. ?? Drink liquids as directed to help prevent dehydration. Ask how much liquid to drink each day andwhich liquids are best for you. How can I help prevent the spread of the flu? ?? Wash your hands often. Use soap and water. Wash your hands after you use the bathroom, change a child's diapers, or sneeze. Wash your hands before you prepare or eat food. Use gel hand cleanser when soap and water are not available. Do not touch your eyes, nose, or mouth unless you have washed your hands first. ?? Cover your mouth when you sneeze or cough. Cough into a tissue or the bend of your arm. ?? Clean shared items with a germ-killing spool cleaner hand. Clean table surfaces, doorknobs, and light switches. Do not share towels, silverware, and dishes with people who are sick. Wash bed sheets, towels, silverware, and dishes with soap and water. ?? Wear a mask over your mouth and nose if you are sick or are near anyone who is sick. ?? Stay away from others if you are sick. ?? Influenza vaccine helps prevent influenza (flu). Everyone older than 6 months should get a yearly influenza vaccine. Get the vaccine as soon as it is available, usually in July or August each year. Call 911 for any of the following: ?? You have trouble breathing, and your lips look purple or blue. ?? You have a seizure. ?? You have new pain or pressure in your chest. When should I seek immediate care? ?? You are dizzy, or you are urinating less or not at all. ?? You have a headache with a stiff neck, and you feel tired or confused. ?? Your symptoms, such as shortness of breath, vomiting, or diarrhea, get worse. ?? Your symptoms, such as fever and coughing, seem to get better, but then get worse. When should I contact my healthcare provider? ?? You have new muscle pain or weakness. ?? You have questions or concerns about your condition or care. CARE AGREEMENT: You have the right to help plan your care. Learn about your health condition and how it may be treated. Discuss treatment options with your caregivers to decide what care you want to receive. You always have the right to refuse treatment. The above information is an educational director only. It is not intended as medical advice for individual conditions or treatments. Talk to your doctor, nurse or pharmacist before following any medical regimen to see if it is safe and effective for you. ?? 2016 [employer]. Information is for End User's use only and may not be sold, redistributed or otherwise used for commercial purposes. All illustrations and images included in CareNotes?? are the copyrighted property of [employer] or [employer]. [employer] documented in this encounter Progress Notes * Rahel Feliz PA-C - 10/24/2017 4:17 PM CST 10/24/2017 PCP: Yosvany Gonsalez MD CC: Chief Complaint Patient presents with ??? Cough ??? GENERALIZED BODY ACHES . HPI: [facility] with complaint of cough, runny nose, congestion and fever that started this morning. Exposure to influenza, he was vaccinated. Has not takenOTC. Denies SOB, wheezing, NV, abdominal pain Current Outpatient Prescriptions Medication ??? oseltamivir (TAMIFLU) 75 MG capsule ??? benzonatate (TESSALON) 200 MG capsule ??? ezetimibe-simvastatin (VYTORIN) 10-10 MG tablet ??? CHERATUSSIN AC 100-10 MG/5ML syrup ??? pantoprazole EC (PROTONIX) 40 MG tablet ??? aspirin (ASPIRIN) 81 MG chew tablet ??? Stover-3 Fatty Acids (FISH OIL) 1000 MG capsule ??? Cholecalciferol (VITAMIN D) 2000 UNITS CAPS capsule ??? vitamin E (TOCOPHERYL) 400 UNIT tablet No current facility-administered medications for this visit. Allergies Allergen Reactions ??? Morphine Past Medical History: Diagnosis Date ??? Allergy ??? Chronic airway obstruction ??? Encounter for screening for malignant neoplasm of prostate ??? Esophageal reflux Past Surgical History: Procedure Laterality Date ??? COLONOSCOPY 02/04/15 3 polyps removed ??? HERNIA REPAIR, INGUINAL 02/2012 left ??? Knee Replacement ??? OTHER SURGERY dental extraction Review of Systems: Pertinent items are noted in HPI Physical Exam: BP 124/68 (BP SITE: LEFT ARM, BP POSITION: SITTING, BP CUFF SIZE: Adult) Pulse 109 Temp 100.1 ??F (Oral) Resp 16 Wt 80.3 kg (177 lb) SpO2 96% BMI 27.72 kg/m2 FiO2: General Appearance: Well developed. Alert. Cooperative. No acute distress. Looks like he does not feel well with URI symptoms, but not toxic Psych: Normal mood and affect. Demonstrates good judgment and understanding. Eyes: Conjunctiva clear. Lids normal. PERRL. EOMI. Ears: Hearing intact to voice. Canals clear. Tympanic membranes normal. No postauricular/mastoid/mandibular tenderness/swelling/erythema. Nose: Nares patent. + rhinorrhea Mouth/Throat: Mucous membranes moist. No oral mucosal lesions. Dentition WNL. Throat without erythema without exudate. Uvula midline. Neck: ROM intact. Non tender. No masses. No tonsillar, submandibular, cervical or supraclavicular adenopathy. Lungs: CTA bilaterally; no crackles, no wheezes. Normal respiratory effort without accessory muscleuse. Heart: RRR without murmurs, gallops or rubs Joints: Sufficient ROM without inflammation, effusion or deformity. Skin: Without rash. Plan Office Visit on 10/24/17 INFLUENZA A+B - POINT OF CARE (AMB) Result Value Ref Range Influenza A Ag Negative Negative Influenza B Ag Negative Negative Influenza Control present NEGATIVE - POSITIVE Influenza Lot# [id number] Influenza Expir Date 05/2019 Assessment and Plan: ICD-10-CM 1. Fever, unspecified fever cause R50.9 2. Body aches R52 INFLUENZA A+B - POINT OF CARE (AMB) 3. Upper respiratory tract infection, unspecified type J06.9 Orders Placed This Encounter ??? INFLUENZA A+B - POINT OF CARE (AMB) ??? oseltamivir (TAMIFLU) 75 MG capsule Sig: Take 1 capsule by mouth every 12 hours for 5 days Dispense: 10 capsule Refill: 0 ??? benzonatate (TESSALON) 200 MG capsule Sig: Take 1 capsule by mouth 3 times daily as needed for Cough Dispense: 30 capsule Refill: 0 Still consistent with influenza D/W pt symptoms are must consistent with viral URI at today's visit. Most upper respiratory infections will resolve on their own without antibiotics within approximately 2wks; however, they may progress to bacterial infection with time. Rest, increase fluids. May benefit from humidifier, nasal saline irrigation or salt water gargles. Cough- Prop head up at night. Cough may persist for 3-4 weeks Pain/fever relief- OTC ibuprofen or acetaminophen Propper hand and cough hygiene to prevent spread. RTC if new or persistent fever OR SOB/wheezing OR worsening/failure to improve ER if difficulty breathing, CP, difficulty swallowing or significant worsening of symptoms. Follow up /Instructions: Return if symptoms worsen or fail to improve. [employer] documented in this encounter Plan of Treatment Not on file documented as of this encounter Procedures Procedure Name Priority Date/Time Associated Diagnosis Comments INFLUENZA A+B - POINT OF CARE (AMB) Routine 10/24/2017 4:39 PM [employer] Body aches documented in this encounter Results * INFLUENZA A+B - POINT OF CARE (AMB) (10/24/2017 4:39 PM [employer]) Influenza A Antigen Rapid Negative Negative Influenza B Antigen Rapid Negative Negative Influenza Internal Control present NEGATIVE - POSITIVE Influenza Lot Number [id number] Influenza Expiration Date 05/2019 Other SPECIMEN FROM NASOPHARYNGEAL STRUCTURE / Unknown 10/24/2017 4:39 PM [employer] Rahel Feliz PA-C LAB - POINT OF CARE ORDERABLES documented in this encounter Visit Diagnoses Diagnosis Fever, unspecified fever cause- Primary Body aches Generalized pain Upper respiratory tract infection, unspecified type documented in this encounter Care Teams Dealer Relationship Manager Relationship Specialty Start Date End Date Yosvany Gonsalez MD [address] [phone] PCP - General Internal Medicine 04/08/13 09/03/19 documented as of this encounter
--- OUTSIDE RECORDS SUMMARY | 2024-11-02 07:29 | XMS_ITS | Encounter Summary ---
Author Organization [facility] Address [address] [place] [address] Care Team Providers Care Core Composer Machine Tender Name Role Phone Yosvany Gonsalez MD Primary Care Provider [phone] Reason for Visit * Auth/Cert Specialty Diagnoses [...] Expiration Date Visits Re quested Visits Authorized [id number] 1 1 Encounter Details Date Type Department Care Team (Late st Contact Info) Description 10/02/2018 12:40 PM AIX ADMINISTRATOR Anesthesia Event [facility] - Periop [address] [place] [address] Addison Hicks MD 2 [facility] [place] [address] Elsa Alexandra, HOUSING COORDINATOR-CERTIFIED [employer] [address] [place] [address] Anesthesia Record Procedure Summary Procedure Name Responsible [...] Pt warmer off 1640 an alejandro now LeighREAGAN, assumes care after report 1722 An Emergence 1722 Extubation 1722 Electnc Sig 1722 an stop data 1722 ANPTO2 1726 Handoff 1731 An Stop Meds Name Total lidocaine 2% injection (20 mg/mL) 50 mg propofol 200mg/20mL injection 200 mg succinylcholine (ANECTINE) 20 mg/mL inje ction 100 mg phenylephrine 40 mcg/ml 10 ml syringe 20 0 mcg glycopyrrolate (ROBINUL) 0.2 mg/mL injec tion 0.2 mg ondansetron (ZOFRAN) 2 mg/mL injection 4 mg dexamethasone (DECADRON) 4 mg/ml injecti on 8 mg neostigmine (PROSTIGMIN) 1 mg/mL injecti on 1.5 mg ceFAZolin (ANCEF) 2,000 mg in 50 ml IVPB 2 g cisatracurium injection 16 mg SUFentanil injection 50 mcg lactated ringers infusion 2,600 mL * Agents Name Exp. Sevoflurane Exp. N2O O2 Air Insp. Sevoflurane * Blood No blood administrations on file. [...] CO2 Monitor 10/02/18 1249 by Jaz العراقي APRN-CRNA 10/02/18 1722 by Anupam Valdez HOUSING COORDINATOR-BACK UP MACHINE OPERATOR Procedural Site (Incision) 10/02/18; 1616; Neck; 10/03/18; 21510/02/18 1616 by Francisco J Sexton RN 10/03/18 2152 by Generic, Auto Release documented in this encounter Social [...] on file documented as of this encounter Progress Notes * Addison Hicks MD - 10/02/2018 5:37 PM CST ANESTHESIA POSTOP EVALUATION NOTE Procedure: DISCECTOMY WITH FUSION ANTERIOR CERVICAL (ACDF) MULTI-LEVEL C3-4, C6-7 Natan Patel is a 63 y.o. male No data found. Anesthesia Type: general Pre-op Diagnosis Codes: * Herniated nucleus pulposus, C3-4 left [M50.21] * Osteoarthritis of cervical spine, unspecified spinal osteoarthritis complication status [M47.812] * Stenosis of cervical spine [M48.02] Mental Status: awake, alert and orientated Neuro Status: No numbess, tingling or visual disturbances Respiratory Function: natural Cardiac Function: stable Postop Hydration: adequate Assessment: no apparent anesthetic complications, patient tolerated procedure well and no evidence of recall Patient Disposition: Release from Anesthesia Care ADMINISTRATOR documented in this encounter Consult Notes * Addison Hicks MD - 09/25/2018 2:16 PM CST ANESTHESIA PREOPERATIVE EVALUATION NOTE Procedure: DISCECTOMY WITH FUSION ANTERIOR CERVICAL (ACDF) MULTI-LEVEL C3-4, C6-7 Vitals: No data found. ANESTHESIA PRE-EVALUATION NOTE History of Present Illness: Herniated cervical disc Physical Exam: Orientation X3 Airway/Mallampati Score: II Mouth Opening Distance: 3 fingerwidths Neck ROM: limited (herniated disc) TM Distance: > 3 FB Teeth: dentures/partials upper Heart: regular rate rhythm Lungs: normal Abdomen Exam: soft Physical Exam Additional Comments: History of sleep apnea, uses cpap Review of Systems: History of anesthetic complications: No GERD: No Poor Exercise Tolerance: No Recent Chest Pain: No Shortness of Breath: No AICD/Pacemaker: No Renal Disease: No Diagnostic Tests: ECG(s) reviewed: Yes Chest X-Ray(s) reviewed: Yes. Lab(s) reviewed: Yes. Other Findings: 09/25/18 Hemoglobin 13.7 - 17.5 gm/dL 14.8 Hematocrit 40.1 - 51.0 % 43.6 EKG 09/25/18 Normal sinus rhythm Normal ECG When compared with ECG of 16-NOV-2015 07:47, Criteria for Septal infarct are no longer Present CXR 2013 1. Cardiomediastinal silhouette is not enlarged. Minimal atherosclerotic aorta. 2. Lungs are clear. No pleural effusion or pneumothorax. 3. Minimal scoliosis of the superior thoracic spine. ANESTHESIA PLAN ASA Score: 3 NPO Status: No solids since midnight and No liquids within 2 hours Anesthesia Plan: general Planned Induction: intravenous Planned Postop Destination: PACU Anesthetic plan was discussed with: patient Anesthetic Plan discussion was: Consented Use of blood products were discussed with: patient Use of blood product discussion was: Consented BMI, Height, Weight Tobacco History Estimated body mass index is 27.25 kg/(m^2) as calculated from the following: Height as of 09/25/18: 1.702 m (5' 7 ). Weight as of 09/25/18: 78.9 kg (174 lb). History Smoking Status ??? Former Smoker ??? Packs/day: 0.50 ??? Types: Cigarettes ??? Quit date: 08/07/2018 Smokeless Tobacco ??? Never Used Alcohol History Drug History History Alcohol Use ??? 3.0 oz/week ??? 6 Cans of beer per week History Drug Use No Outpatient Medications: Inpatient Medications: Current Outpatient Prescriptions Medication Sig Last Dose ??? ezetimibe-simvastatin Take 1 tablet by mouth at bedtime ??? pantoprazole EC TAKE 1 TABLET ONCE DAILY Taking ??? aspirin Take 81 mg by mouth once daily 09/18/2018 ??? fish oil Take by mouth once daily 09/11/2018 ??? Vitamin D Take 2,000 Units by mouth once daily 09/11/2018 ??? vitamin E Take 400 Units by mouth once daily 09/11/2018 No current facility-administered medications for this encounter. Allergies: Allergies Allergen Reactions ??? Morphine Itching Problem List: Patient Active Problem List Diagnosis Date Noted ??? H/O nicotine dependence 09/21/2018 Priority: Not Prioritized ??? Acute tracheobronchitis 09/09/2016 Priority: Not Prioritized ??? Primary osteoarthritis of left knee 08/29/2016 Priority: Not Prioritized ??? Pre-operative clearance 08/29/2016 Priority: Not Prioritized ??? Chronic gastritis 12/07/2015 Priority: Not Prioritized ??? RANDY on CPAP 10/16/2015 Priority: Not Prioritized ??? Screen for colon cancer 12/05/2014 ??? Chronic cough 10/15/2014 ??? Annual physical exam 10/14/2013 ??? Hyperlipidemia 04/15/2013 ??? Special screening for malignant neoplasm of prostate 04/15/2013 ??? High risk medications (not anticoagulants) long-term use 04/15/2013 ??? Tendonitis of shoulder, right 04/15/2013 Medical History: Past Medical History: Diagnosis Date ??? Allergy ??? Chronic airway obstruction ??? Encounter for screening for malignant neoplasm of prostate ??? Esophageal reflux ??? Sleep apnea cpap Surgical History: Past Surgical History: Procedure Laterality Date ??? COLONOSCOPY 02/04/15 3 polyps removed ??? HERNIA REPAIR, INGUINAL 02/2012 left ??? Knee Replacement Bilateral ??? OTHER SURGERY dental extraction Lab Results: Recent Labs Component Name 09/25/18 1127 HGB 14.8 HCT 43.6 ADMINISTRATOR documented in this encounter Miscellaneous Notes * Anesthesia Transfer of Care - Rasheed Abraham APRN-BACK UP MACHINE OPERATOR - 10/02/2018 5:31 PM CST ANESTHESIA TRANSFER OF CARE NOTE Today's Date: 10/02/2018 Date of : 1955 Patient: Natan Patel Procedure(s): DISCECTOMY WITH FUSION ANTERIOR CERVICAL (ACDF) MULTI-LEVEL C3-4, C6-7 Surgeon(s): Primary: Chris Kay MD Preop Diagnosis: Pre-op Diagnois: * Herniated nucleus pulposus, C3-4 left [M50.21] * Osteoarthritis of cervical spine, unspecified spinal osteoarthritis complication status [M47.812] * Stenosis of cervical spine [M48.02] Post-op Diagnosis: * Herniated nucleus pulposus, C3-4 left [M50.21] * Osteoarthritis of cervical spine, unspecified spinal osteoarthritis complication status [M47.812] * Stenosis of cervical spine [M48.02] . Allergies Allergen Reactions ??? Morphine Itching Vitals: No data found. Lines, Drains, and Airways Type Details Placement Removal Peripheral IV 10/02/18; 1013; Left; Hand; Patsy RN; 18 Gauge; Anatomical Landmarks; 1; Injectable; Well 10/02/18 1013 by Patsy Adams RN ETT 10/02/18; 1249; LK; easy mask; Standard IV; Ariana; 3; Grade 2 (partial cords); Stylet; Endotracheal Tube; Oral; Cuffed-inflated; 8 MM; 21 CM; lips; 1; Air; 6 mL; Direct visualization, Bilateral breath sounds, Chest Auscultation, CO2 Monitor; 10/02/18; 1722 10/02/18 1249 by Jaz العراقي APRN-CRNA 10/02/18 1722 by Anupam Valdez APRN-CRNA Intraprocedure I/O Totals Anesthesia Other Output Estimated Blood Loss 150 mL lactated ringers infusion Volume infused 2600 ml Patient Transfer Location: PACU Transport Airway: spontaneous respirations and supplemental O2 Complications: None Handoff Given? Yes Checklist or Protocol - The woodruff handoff elements that must be included in the transfer of care checklist include: 1. Identification of patient. 2. Identification of responsible practitioner (PACU nurse or advanced practitioner). 3. Discussion of pertinent medical history. 4. Discussion of the surgical/procedure course (procedure, reason for surgery, procedure performed). 5. Intraoperative anesthetic management and issue/concerns. 6. Expectations/Plans for the early post-procedure period. 7. Opportunity for questions and acknowledgement of understanding of report from the receiving PACUteam. SALVADOR Marin ADMINISTRATOR documented in this encounter Plan of Treatment Not on file documented as of this encounter Visit Diagnoses Not on filedocumented in this encounter Administered Medications Inactive Administered Medications - up to 3 most recent administrations Medication Order MAR Action Action Date Dose Rate Site ceFAZolin (ANCEF) 2,000 mg in 50 ml IVPB 2,000 mg (2 g), at 100 mL/hr, Intravenous, ONCE, 1 dose, On Mon10/02/18 at 0945, Indication for anti-infective therapy: Surgical prophylaxis, Pre-op $ Given 10/02/2018 12:40 PM AIX ADMINISTRATOR 2 g cisatracurium (NIMBEX) injection PRN, Starting on Mon10/02/18 at 1255, Until Mon10/02/18 at 1731, Anesthesia Intra-op $ Given 10/02/2018 2:48 PM AIX ADMINISTRATOR 2 mg $ Given 10/02/2018 2:15 PM AIX ADMINISTRATOR 4 mg $ Given 10/02/2018 1:30 PM AIX ADMINISTRATOR 4 mg dexamethasone (DECADRON) injection PRN, Nausea/Vomiting, Starting on Mon10/02/18 at 1250, Until Mon10/02/18 at 1731, Anesthesia Intra-op $ Given 10/02/2018 12:50 PM AIX ADMINISTRATOR 8 mg glycopyrrolate (ROBINUL) injection PRN, Starting on Mon10/02/18 at 1710, Until Mon10/02/18 at 1731, Anesthesia Intra-op $ Given 10/02/2018 5:10 PM AIX ADMINISTRATOR 0.2 mg lactated ringers infusion at 20 mL/hr, Intravenous, PRE-OP CONTINUOUS, Starting on Mon10/02/18 at 1000, Until Mon10/02/18 at 1857, Pre-op $ New Bag/Syringe 10/02/2018 4:35 PM AIX ADMINISTRATOR $ New Bag/Syringe 10/02/2018 1:15 PM AIX ADMINISTRATOR $ New Bag/Syringe 10/02/2018 10:19 AM AIX ADMINISTRATOR 20 mL /hr lidocaine (XYLOCAINE) 2 % injection PRN, Starting on Mon10/02/18 at 1247, Until Mon10/02/18 at 1731, Anesthesia Intra-op $ Given 10/02/2018 12:47 PM AIX ADMINISTRATOR 50 mg neostigmine (PROSTIGMIN/BLOXIVERZ) injection PRN, Starting on Mon10/02/18 at 1710, Until Mon10/02/18 at 1731, Anesthesia Intra-op $ Given 10/02/2018 5:10 PM AIX ADMINISTRATOR 1.5 mg ondansetron (ZOFRAN) injection PRN, Nausea/Vomiting, Starting on Mon10/02/18 at 1247, Until Mon10/02/18 at 1731, Anesthesia Intra-op $ Given 10/02/2018 12:47 PM AIX ADMINISTRATOR 4 mg phenylephrine 40 mcg/ml custom syringe PRN, Starting on Mon10/02/18 at 1251, Until Mon10/02/18 at 1731, Anesthesia Intra-op $ Given 10/02/2018 3:30 PM AIX ADMINISTRATOR 100 mcg $ Given 10/02/2018 12:51 PM AIX ADMINISTRATOR 100 mcg propofol (DIPRIVAN) injection PRN, Starting on Mon10/02/18 at 1247, Until Mon10/02/18 at 1731, Anesthesia Intra-op $ Given 10/02/2018 12:47 PM AIX ADMINISTRATOR 200 mg succinylcholine (ANECTINE) injection PRN, Starting on Mon10/02/18 at 1247, Until Mon10/02/18 at 1731, Anesthesia Intra-op $ Given 10/02/2018 12:47 PM AIX ADMINISTRATOR 100 mg SUFentanil (SUFENTA) injection PRN, Starting on Mon10/02/18 at 1247, Until Mon10/02/18 at 1731, Anesthesia Intra-op $ Given 10/02/2018 3:50 PM AIX ADMINISTRATOR 2 mcg $ Given 10/02/2018 3:45 PM AIX ADMINISTRATOR 2 mcg $ Given 10/02/2018 3:40 PM AIX ADMINISTRATOR 2 mcg documented in this encounter Care Teams Core Composer Machine Tender Relationship Specialty Start Date End Date Yosvany Gonsalez MD [address] [place] [phone] PCP - General Internal Medicine 04/08/13 09/03/19 documented as of this encounter
--- OUTSIDE RECORDS SUMMARY | 2024-11-02 07:29 | XMS_ITS | Encounter Summary ---
Author Organization [facility] Address [address] [place] [address] Care Team Providers Care Public Safety Police Name Role Phone Yosvany Gonsalez MD Primary Care Provider [phone] Encounter Details Date Type Department Care Team (Latest Contact Info) Description 09/06/2018 4:11 PM CDT - 09/06/2018 11:59 PM CDT Hospital Encounter [facility] - Laboratory [address] [place] [address] Chris Kay MD [address] [place] [address] [phone] Discharge Disposition: Home or Self Care Social [...] on file documented as of this encounter Medications at Time of Discharge Medication Sig Dispensed Refills Start Date End Date aspirin (ASPIRIN) 81 MG chew tablet Take 81 mg by mouth once daily Cholecalciferol (VITAMIN D) 2000 UNITS CAPS capsule Take 2,000 Units by mouth once daily [place]-3 Fatty Acids (FISH OIL) 1000 MG capsule Take by mouth once daily oxyCODONE-acetaminophe n (PERCOCET) 7.5-325 MG tablet Take 1-2 tablets by mouth every 4 hours as needed for Pain (for moderate to severe pain) 120 tablet 10/02/2018 vitamin E (TOCOPHERYL) 400 UNIT tablet Take 400 Units by mouth once daily albuterol HFA (PROVENTIL;VENTOLIN;MD OAIR) 108 (90 BASE) MCG/ACT inhaler Inhale 2 puffs by mouth every 6 hours as needed for Shortness of Breath, Wheezing or Cough 1 Inhaler 03/03/2018 09/21/2018 atorvastatin (LIPITOR) 10 MG tablet Take 1 tablet by mouth once daily 90 tablet 1 04/26/2018 09/21/2018 benzonatate (TESSALON) 200 MG capsule Take 1 capsule by mouth 3 times daily as needed for Cough 30 capsule 10/24/2017 09/21/2018 CHERATUSSIN AC 100-10 MG/5ML syrup 03/08/2017 09/21/2018 methylPREDNISolone (MEDROL DOSEPAK) 4 MG tablet Take by mouth as directed 21 tablet 03/03/2018 09/21/2018 pantoprazole EC (PROTONIX) 40 MG tablet TAKE 1 TABLET ONCE DAILY 90 tablet 3 12/15/2017 10/02/2018 documented as of this encounter Plan of Treatment Not on file documented as of this encounter Procedures Procedure Name Priority Date/Time Associated Diagnosis Comments NICOTINE + METABOLITES URINE Routine 09/06/2018 4:15 PM CDT H/O nicotine dependence documented in this encounter Results * NICOTINE + METABOLITES URINE (09/06/2018 4:15 PM CDT) Nicotine Urine <2 ng/mL 09/10/2018 11:35 PM [facility] ([facility]) Comment: Consistent with abstinence from nicotine-containing products for at least 2 weeks. INTERPRETIVE INFORMATION: Nicotine and Metabolites, ?Urine, Quantitative Methodology: Quantitative Liquid Chromatography-Tandem Mass Spectrometry Positive cutoff: Nicotine ??2 ng/mL Cotinine ??5 ng/mL 5-GE-Lzobqyqm 50 ng/mL Nornicotine ? 2 ng/mL Anabasine [...] laboratory. Test developed and characteristics determined by [employer]. See Compliance Statement B: [employer]CS Performed by [employer], [address] [place] [address] [email or web address] Thomas Resendiz MD, Lab. Director Nornicotine Urine <2 ng/mL 018 11:35 PM [facility] [address] ([facility]) 3-Hydroxy Cotinine Urine <50 ng/mL 09/10/2018 11:35 PM [facility] [address] ([facility]) Cotinine Urine <5 ng/mL 09/10/2018 11:35 PM [facility] [address] ([facility]) Anabasine Urine <3 ng/mL 8 11:35 PM [facility] [address] ([facility]) Urine URINE / Unknown Collection / Unknown 09/06/2018 4:15 PM CDT 09/06/2018 4:18 PM CDT Chris Kay MD LAB - URINE CHEMISTR Y ORDERABLES [address] ([facility]) [address] documented in this encounter Visit Diagnoses Diagnosis H/O nicotine dependence- Primary Personal history of tobacco use, presenting hazards to health documented in this encounter Care Teams Public Safety Police Relationship Specialty Start Date End Date Yosvany Gonsalez MD [address] [place] [address] PCP - General Internal Medicine 04/08/13 09/03/19 documented as of this encounter
--- OUTSIDE RECORDS SUMMARY | 2024-11-02 07:29 | XMS_ITS | Encounter Summary ---
Author Organization [facility] Address [address] [place] [address] Care Team Providers Care [employer] Name Role Phone Yosvany Gonsalez MD Primary Care Provider [phone] Reason for Visit * Reason Onset Date Comments General 04/12/2018 Encounter Details Date Type Department Care Team (Late st Contact Info) Description 04/12/2018 Telephone [facility] [address] [phone] Yosvany Gonsalez MD [address] [place] [address] General Social History Tobacco Use Types Packs/Day Years [...] Telephone Encounter - Wilma Lomeli LPN - 04/12/2018 4:18 PM CDT Yes, patient's labs had and I reprinted the labs for the patient per protocol Called and confirmed with patient's * Telephone Encounter - Sarai Altamirano - 04/12/2018 4:14 PM CDT Patient has appointment on 620 and is wanting to know if he needs lab work. If he does, please send to [facility] Please call documented in this encounter Plan of Treatment Not on file documented as of this encounter Procedures Procedure Name Priority Date/Time Associated Diagnosis Comments URIC ACID BLOOD Routine 04/16/2018 7:47 AM CDT Annual physical exam High risk medications (not anticoagulants) long-term use Special screening for malignant neoplasm of prostate Mixed hyperlipidemia Fatigue, unspecified type Abnormal glucose HEMOGLOBIN A1C Routine 04/16/2018 7:47 AM CDT Annual physical exam High risk medications (not anticoagulants) long-term use Special screening for malignant neoplasm of prostate Mixed hyperlipidemia Fatigue, unspecified type Abnormal glucose CBC W AUTO DIFFERENTIAL Routine 04/16/2018 7:47 AM CDT Annual physical exam High risk medications (not anticoagulants) long-term use Special screening for malignant neoplasm of prostate Mixed hyperlipidemia Fatigue, unspecified type Abnormal glucose COMPREHENSIVE METABOLIC PANEL Routine 04/16/2018 7:47 AM CDT Annual physical exam High risk medications (not anticoagulants) long-term use Special screening for malignant neoplasm of prostate Mixed hyperlipidemia Fatigue, unspecified type Abnormal glucose PROSTATE SPECIFIC ANTIGEN SCREEN Routine 04/16/2018 7:47 AM CDT Annual physical exam High risk medications (not anticoagulants) long-term use Special screening for malignant neoplasm of prostate Mixed hyperlipidemia Fatigue, unspecified type Abnormal glucose TSH Routine 04/16/2018 7:47 AM CDT Annual physical exam High risk medications (not anticoagulants) long-term use Special screening for malignant neoplasm of prostate Mixed hyperlipidemia Fatigue, unspecified type Abnormal glucose T4 FREE Routine 04/16/2018 7:47 AM CDT Annual physical exam High risk medications (not anticoagulants) long-term use Special screening for malignant neoplasm of prostate Mixed hyperlipidemia Fatigue, unspecified type Abnormal glucose LIPID PROFILE Routine 04/16/2018 7:47 AM CDT Annual physical exam High risk medications (not anticoagulants) long-term use Special screening for malignant neoplasm of prostate Mixed hyperlipidemia Fatigue, unspecified type Abnormal glucose documented in this encounter Results * URIC ACID BLOOD (04/16/2018 7:47 AM CDT) Pathologist [facility] Uric Acid 6.6 4.0 - 8.0 mg/dL [facility] Comment: Therapeutic target for gout patients: <6.0 mg/dL ?? Test Performed at: [employer] [facility] [id number] [place] [address] ??[phone] MICHEL LEO DO,MPH Blood BLOOD SPECIMEN / Unknown 04/16/2018 7:47 AM CDT 04/16/2018 7:48 AM CDT Yosvany Gonsalez MD LAB - CHEMISTRY [facility] Performing Organization Address [facility] de Phone Number [facility] [phone] [place] [address] * PROSTATE SPECIFIC ANTIGEN SCREEN (04/16/2018 7:47 AM CDT) [facility] PSA 0.8 < OR = 4.0 ng/mL [facility] Comment: [...] or absence of disease. Test Performed at: [employer] [facility] [place], [place] ??[phone] MICHEL LEO DO,MPH Blood BLOOD SPECIMEN / Unknown 04/16/2018 7:47 AM CDT 04/16/2018 7:48 AM CDT Yosvany Gonsalez MD LAB - CHEMISTRY [facility]IANA ADAMS Performing Organization Address [facility] Co de Phone Number [facility] [address] [place] [address] * TSH (04/16/2018 7:47 AM CDT) [facility] TSH 1.59 0.40 - 4.50 mIU/L [facility] Comment: Test Performed at: [employer] [address] [place], [place] ??[phone] MICHEL LEO DO,MPH Blood BLOOD SPECIMEN / Unknown 04/16/2018 7:47 AM CDT 04/16/2018 7:48 AM CDT Yosvany Gonsalez MD LAB - CHEMISTRY [facility]IA[facility] ADAMS Performing Organization Address [facility] Co de Phone Number [place] [phone] [place] [address] * T4 FREE (04/16/2018 7:47 AM CDT) T4 Free 1.2 0.8 - 1.8 ng/dL [facility] Comment: Test Performed at: [employer] [facility] [employer] [place] [address] [place], [place] ??[phone] MICHEL LEO DO,MPH Blood BLOOD SPECIMEN / Unknown 04/16/2018 7:47 AM CDT 04/16/2018 7:48 AM CDT Yosvany Gonsalez MD LAB - CHEMISTRY [facility] Performing Organization Address [facility] [place] [address] * (ABNORMAL) LIPID PROFILE (04/16/2018 7:47 AM CDT) Cholesterol 176 <200 mg/dL [facility] HDL Cholesterol 42 >40 mg/dL [facility] Triglycerides 133 <150 mg/dL [facility] LDL Calculated 109(H) mg/dL (calc) [facility] Comment: Reference range: <100 [...] LDL-C. Armani STEPHEN et al. RODOLFO. 2013;310(19): 8751-9701 (http://education.[employer]faq/LKE411) CHOL/HDLC RATIO 4.2 <5.0 (calc) [facility] Non HDL Cholesterol 134(H) <130 mg/dL (calc) [facility] Comment: For patients with diabetes plus 1 major ASCVD risk factor, treating to a non-HDL-C goal of <100 mg/dL (LDL-C of <70 mg/dL) is considered a therapeutic option. Test Performed at: [facility] [address] [place], [place] ??[phone] MICHEL LEO DO,MPH Blood BLOOD SPECIMEN / Unknown 04/16/2018 7:47 AM CDT 04/16/2018 7:48 AM CDT Yosvany Gonsalez MD LAB - CHEMISTRY [facility] Performing Organization Address [facility] de Phone Number [facility] [address] [place] [address] * HEMOGLOBIN A1C (04/16/2018 7:47 AM CDT) Hemoglobin A1c 5.2 <5.7 % of total Hgb [facility] Comment: [...] diagnosis of diabetes in children. According to [place] Diabetes Association (ADA) guidelines, hemoglobin A1c <7.0% represents optimal control in non- diabetic patients. Different metrics may apply to specific patient populations. Standards of Medical Care in Diabetes(ADA). ?? REPORT COMMENT: FASTING:YES Test Performed at: [facility] [address] [place], [place] ??[phone] MICHEL LEO DO,MPH Whole Blood BLOOD SPECIMEN WITH EDTA / Unknown 04/16/2018 7:47 AM CDT 04/16/2018 7:48 AM CDT Yosvany Gonsalez MD LAB - CHEMISTRY [facility] Performing Organization Address [facility]/ZIP Co de Phone Number [facility] [address] [place] [phone] * COMPREHENSIVE METABOLIC PANEL (04/16/2018 7:47 AM CDT) Pathologist [facility] Glucose 96 65 - 99 mg/dL [facility] Comment: ? Fasting reference interval BUN 14 7 - 25 mg/dL [facility] Creatinine 0.80 0.70 - 1.25 mg/dL [facility] Comment: For patients >49 years of age, the reference limit for Creatinine is approximately 13% higher for people identified as -[place]. eGFR by MDRD 95 > OR = 60 mL/min/1 .73m2 [facility] eGFR by MDRD 110 > OR = 60 mL/min/1 .73m2 [facility] BUN/Creatinine Ratio NOT APPLICABLE 6 - 22 (calc) [facility] Sodium 140 135 - 146 mmol/L [facility] Potassium 4.6 3.5 - 5.3 mmol/L [facility] Chloride 105 98 - 110 mmol/L [facility] CO2 27 20 - 31 mmol/L [facility] Calcium 9.3 8.6 - 10.3 mg/dL [facility] Protein Total 7.3 6.1 - 8.1 g/dL [facility] Albumin 4.6 3.6 - 5.1 g/dL [facility] Globulin Total 2.7 1.9 - 3.7 g/dL (calc) [facility] Albumin/Globulin Ratio 1.7 1.0 - 2.5 (calc) [facility] Bilirubin Total 1.0 0.2 - 1.2 mg/dL [facility] Alkaline Phosphatase 41 40 - 115 U/L [facility] AST 18 10 - 35 U/L [facility] ALT 17 9 - 46 U/L [facility] Comment: Test Performed at: [employer] [address] ??[phone] MICHEL LEO DO,MPH Blood BLOOD SPECIMEN / Unknown 04/16/2018 7:47 AM CDT 04/16/2018 7:48 AM CDT Yosvany Gonsalez MD LAB - CHEMISTRY [facility] [address] [place] [address] * CBC W AUTO DIFFERENTIAL (04/16/2018 7:47 AM CDT) Pathologist [facility] White Blood Cell Count 4.7 3.8 - 10.8 Thousand/u L [facility] RBC 4.68 4.20 - 5.80 Million/uL [facility] Hemoglobin 15.3 13.2 - 17.1 g/dL [facility] Hematocrit 43.7 38.5 - 50.0 % [facility] MCV 93.4 80.0 - 100.0 fL [facility] MCH 32.7 27.0 - 33.0 pg [facility] MCHC 35.0 32.0 - 36.0 g/dL [facility] RDW 13.0 11.0 - 15.0 % [facility] Platelet Count 248 140 - 400 Thousand/u L [facility] MPV 10.1 7.5 - 12.5 fL [facility] Neutrophil Absolute 2515 1500 - 7800 cells/uL [facility] Lymphocytes Absolute 1528 850 - 3900 cells/uL [facility] Absolute Monocytes 564 200 - 950 cells/uL [facility] Eosinophils Absolute 52 15 - 500 cells/uL [facility] Basophils Absolute 42 0 - 200 cells/uL [facility] Granulocytes % 53.5 % [facility] Lymphocytes % 32.5 % [facility] Monocytes % 12.0 % [facility] Eosinophils % 1.1 % [facility] Basophils % 0.9 % [facility] Comment: Test Performed at: [facility] [address] [place] [address] ??[phone] MICHEL LEO DO,MPH Blood BLOOD SPECIMEN / Unknown 04/16/2018 7:47 AM CDT 04/16/2018 7:48 AM CDT Yosvany Gonsalez MD LAB - HEMATOLOGY ORD ERABLES Performing Organization Address City/State/[facility] Co de Phone Number [facility] [address] [place] [address] documented in this encounter Visit Diagnoses Diagnosis Annual physical exam- Primary Routine general medical examination at a health care facility High risk medications (not anticoagulants) long-term use Encounter for long-term (current) use of other medications Special screening for malignant neoplasm of prostate Mixed hyperlipidemia Fatigue, unspecified type Abnormal glucose documented in this encounter Care Teams [employer] Relationship Specialty Start Date End Date Yosvany Gonsalez MD [address] [place] [phone] PCP - General Internal Medicine 04/08/13 09/03/19 documented as of this encounter
--- OUTSIDE RECORDS SUMMARY | 2024-11-02 07:29 | XMS_ITS | Encounter Summary ---
Author Organization [facility] Address [address] [place] [address] Care Team Providers Care Cooking Appliance Repair Technician Name Role Phone Yosvany Gonsalez MD Primary Care Provider [phone] Reason for Visit * Auth/Cert Specialty Diagnoses [...] Expiration Date Visits Re quested Visits Authorized [id number] 1 1 Encounter Details Date Type Department Care Team (Late st Contact Info) Description 10/02/2018 11:08 AM PSYCHOLOGY ASSOCIATE - 10/02/2018 3:25 PM PSYCHOLOGY ASSOCIATE Surgery [facility] - Periop [address] [place] [address] Jennifer Kay MD [address] [place] [id number] DISCECTOMY WITH FUSION ANTERIOR CERVICAL (ACDF) MULTI-LEVEL C3-4, C6-7 Surgery Details Date/Time Status Location OR Service Patient Class Case Class Case Type Trauma Case? 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 Admit Surgical Elective > 5 days Panel 1 Procedure LRB Anes Op Region Wound Class Comments DISCECTOMY WITH FUSION ANTER IOR CERVICAL (ACDF) MULTI-LEVEL C3-4, C6-7 General Clean Surgeon Surgeon Role Service Panel Jennifer Kay MD Primary Orthopedics 1 Special Needs BONE SPACERS, SYNTHES VECTRA-T PLATESNOTIFIED MANJIT AND JOHN @ SYNTHES documented in this encounter Social History Tobacco [...] Sign Reading Time Taken Comments Blood Pressure 154/86 10/02/2018 9:43 AM PSYCHOLOGY ASSOCIATE Pulse 82 10/02/2018 9:43 AM PSYCHOLOGY ASSOCIATE Temperature 36.4 ??C (97.6 ??F) 10/02/2018 9:43 AM CS T Respiratory Rate 20 10/02/2018 9:43 AM PSYCHOLOGY ASSOCIATE Oxygen Saturation 98% 10/02/2018 9:43 AM PSYCHOLOGY ASSOCIATE Inhaled Oxygen Concentration - - Weight 78 kg (171 lb 15.3 oz) 10/02/2018 9:40 AM PSYCHOLOGY ASSOCIATE Height 170.2 cm (5' 7 ) 10/02/2018 9:40 AM PSYCHOLOGY ASSOCIATE Body Mass Index 27.28 10/02/2018 9:40 AM PSYCHOLOGY ASSOCIATE documented in this encounter Functional Status Functional [...] Kay MD - 10/03/2018 3:15 PM CST [facility] Discharge Summary PATIENT NAME: MANDIE COTTER [facility]#: [id number] CSN: [id number] CLASS: I/P ADMISSION DATE: 10/02/2018SEX: M DISCHARGE DATE: 10/03/2018DOB: 1955 PRIMARY MD: DISCHARGE TO: 01 ATTENDING MD: JENNIFER KAY DICTATOR: JENNIFER KAY M.D. DIAGNOSIS ON ADMISSION: [...] The patient is a relatively healthy, 63-year-old, hqczb-qdmp-ouwtytzu male, still works. He developed radicular left [...] by his primary care physician, admitted to [facility] on 10/02/2018. Admission labs and cardiogram showed [...] minor dysphagia. Hewas given IV pain meds, MED DIR Dilaudid pump, and cool liquids, ice chips, and lozenges. By the following morning, patient was able to swallow well. He was given a soft diet which he tolerated, actuallyate a grilled cheese sandwich for lunch. He was ambulating independently with no assistive devices.The MED DIR pump was discontinued, postop day 1 in [...] has a followup appointment with Dr. Kay's tax accounting assistant, Calvin Paul, nurse practitioner for October 10, 2018, for removal of a subcuticular nylon suture. All the patient's home medications that were listed in the medical section of his hospital record were resumed at discharge. He was discharged in good condition. Tammy Rosado/MAXIME /[id number] cc: Jennifer Kay M.D. DISCHARGE SUMMARY - [facility] HOLOGY ASSOCIATE documented in this encounter Discharge Instructions * Discharge Instructions* Unique Bedolla RN - 10/03/2018 8:33 AM PSYCHOLOGY ASSOCIATE Anterior Cervical Discectomy WHAT YOU NEED TO [...] may look swollen and red. ?? Copyright [employer] 2018 Information is for End User's use only and may not be sold, redistributed or otherwise used for commercial purposes. All illustrations and images included in CareNotes?? are the copyrighted property of [employer]. or [employer] The above information is an hotel maid only. It is not intended as medical advice for individual conditions or treatments. Talk to your doctor, nurse or pharmacist before following any medical regimen to see if it is safe and effective for you. Oxycodone/Acetaminophen (By mouth) Acetaminophen (k-hjxv-u-MIN-oh-fen), Oxycodone Hydrochloride (vu-j-MWG-done aga-llus-FCOK-sandro) Treats moderate to moderately severe pain. This [...] pharmacist before using any other medicine, including gpzw-xqa-evqtmtm medicines, vitamins, and herbal products. ?? Do [...] disease (such as asthma, COPD), thyroid problems, Wilfrid disease, pancreas or gallbladder problems, prostate problems, [...] may report side effects to FDA at 9-408-QDT-8512 ?? Copyright [employer] 2018 Information is for End User's use only and may not be sold, redistributed or otherwise used for commercial purposes. The above information is an hotel maid only. It is not intended as medical advice for individual conditions or treatments. Talk to your doctor, nurse or pharmacist before following any medical regimen to see if it is safe and effective for you. HOLOGY ASSOCIATE documented in this encounter Medications at Time of Discharge Medication Sig Dispensed Refills Start Date End Date aspirin (ASPIRIN) 81 MG chew tablet Take 81 mg by mouth once daily Cholecalciferol (VITAMIN D) 2000 UNITS CAPS capsule Take 2,000 Units by mouth once daily Lyons-3 Fatty Acids (FISH OIL) 1000 MG capsule [...] medications. Voices no concerns at this time. HOLOGY ASSOCIATE * Francisco Chetan Sanya, NATURAL FOODS CLERK - 10/03/2018 2:38 PM CST Care Management Initial Assessment Met with: Pt Patient's orientation/cognition: A&O, Mood: Appropriate Lives with:: Spouse Community Resources currently in use?: No Requires assistance with:: None Medical Conditions: (Cervical spondylosis, stenosis, and disk herniation, C3-4 and C6-7 with left cervical radiculopathy and cephalgia) Equipment At Home: None Preferred Pharmacy [facility] [address] [facility] [address] [phone] Portal to [facility] [address] [email or web address] [facility] [address] Hours: Fax number verified on 11-14-2012 [id number] [place] [address] [phone] [place] [address] Not a 24 hour pharmacy; exact hours not known [id number] [address] [place] [address] [phone] [place] [address] Not a 24 hour pharmacy; exact hours not known Medi-Order Entry Representative: yes Ability to afford meds/at what level [...] resources? Yes Reason for provider choice: Insurance Custodial Prescreen sent (if applicable/date): n/a Transportation at [...] until he sees him on his f/uvisit. HOLOGY ASSOCIATE * Jennifer Kay MD - 10/03/2018 1:30 [...] D/C home now, F/U in one week. HOLOGY ASSOCIATE * Geovany Rebollar, JOSEFINA - 10/03/2018 10:02 [...] Dressing Stand By Assist Fine Motor Coordination Air Export Coordinator Strength Compared Equal strength of right and [...] go home today. No skilled OT needs HOLOGY ASSOCIATE * Addison Paul, PT - 10/03/2018 8:59 [...] (Calculated) 0 CMS 'G-Code' Modifier (Calculated) CH HOLOGY ASSOCIATE * Addison Paul, PT - 10/03/2018 8:57 AM CST 10/03/18 0846 Author/Specialty Author / Specialty Physical Therapy Rn Home Health Resource Is a qualified edging machine setter used? No Home Situation Type of Residence [...] Score # 0 Bed Mobility Rolling Complete Bossier Supine to Sit Complete Bossier Sit to Supine Complete Bossier Transfers Sit to Stand Complete Bossier Stand to Sit Complete Bossier Chair to Bed Complete Bossier Bed to Chair Complete Bossier Transfer Device No Device Mobility Distance Ambulated 440 FEET Ambulation: Assistive Device None Ambulation: Level of Assistance Complete Bossier Weight Bearing Status-LLE Weight Bearing as Tolerated Weight Bearing Status-RLE Weight Bearing as Tolerated Weight Bearing Status-LUE Weight Bearing as Tolerated Weight Bearing Status-RUE Weight Bearing as Tolerated RLE Assessment RLE Assessment WDL RLE Sensation WFL LLE Assessment LLE Assessment WDL LLE Sensation WFL Treatment Time Treatment Start Time 0815 Physical Therapy Treatment Summary Note 10/03/2018 Mandie Cotter [id number] Referring Physician:Jennifer Kay MD Referral Diagnosis: 1. Cervical stenosis of spinal canal 2. Herniated nucleus pulposus, C3-4 left 3. Osteoarthritis of cervical spine, unspecified spinal osteoarthritis complication status 4. Stenosis of cervical spine Comorbidities impacting plan of care: Problem List: decreased Strength ,Transfer And Gait Skills , Decreased Balance, Fall Risk, InstructAnd Educate To Improve Quality Of Life. Functional Limitation: 000 per [facility] Rationale for Therapy: Patient will benefit from PT to address the above issues\ .EXAMINATION : LOW COMPLEXITY 1-2 ELEMENTS, Pt was seen for 41 minutes for evaluation and Or treatment. One Time Referral No Skilled Physical Therapy follow Up Required . The Patient statted He Did Have Numbness In The Left Thumb , index, AndMiddle Finger Co morbilities LOW COMPLEXITY 0, 1 Stable, Treatment Today : Evaluation And Treatment Call Light Within Reach Addison Paul, PT 10/03/2018 8:57 AM HOLOGY ASSOCIATE * Mireya Fernandez, PharmD - 10/03/2018 8:20 AM CST Medication Reconciliation Note Reviewed med list prior to discharge. Oxycodone-APAP script printed by physician. Mireya Fernandez PharmD 10/03/2018 8:20 AM HOLOGY ASSOCIATE * Gee Chávez RN - 10/03/2018 7:36 AM CST End of shift note. Chart review complete. Numbness and tingling to LUE continues. No distress or concerns voiced. HOLOGY ASSOCIATE * Gee Chávez RN - 10/03/2018 12:00 AM CST Problem: Pain/Discomfort Goal: Patient verbalizes acceptable level of pain relief and ability to engage in desired activity. Outcome: Ongoing Pt verbalizes acceptable level of pain relief. Problem: Low Fall Risk (Score 7-10) Goal: Patient will remain safe from falls and injury. Outcome: Ongoing Pt remains safe from falls and injury. HOLOGY ASSOCIATE * Gee Chávez RN - 10/02/2018 10:11 PM CST Pt refused co2 monitoring at this time. Educated on importance of same. HOLOGY ASSOCIATE documented in this encounter OR Notes * Operative - Jennifer Kay MD - 10/03/2018 3:36 AM CST [facility] Operative Report PATIENT NAME: MANDIE COTTER#: [id number] CSN: [id number] CLASS: I/P ADMISSION DATE: 10/02/2018ROOM#: [id number] PRIMARY MD: SEX: M ATTENDING MD: JENNIFER HOBSBOB: 1955 SURGEON: Jennifer Kay M.D. DICTATOR: JENNIFER KAY M.D. SURGERY DATE: 10/02/2018 FACILITY: Main operating room, [place], [place]. PREOPERATIVE DIAGNOSIS: Cervical spondylosis, stenosis, and [...] then anterior cervical plating, C3-4 and C6-7. SPECIAL SERVICES AGENT: Galina Hummel, nurse practitioner. ANESTHESIA: General. ESTIMATED BLOOD LOSS: 150 cc. FLUID REPLACEMENT: 2000 cc crystalloid. SPECIMEN: C3-4 and C6-7 discs. COMPLICATIONS: None. CONDITION: At the end of the procedure was stable. URINE OUTPUT: Not monitored during the procedure. 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 He started developing radicular left arm pain [...] by his primary care physician, admitted to [facility] on October 02, 2018. DESCRIPTION OF PROCEDURE: [...] allow visualization of lower cervical spine. Lateral air brush artist x-ray was taken which showed our ability [...] isolated and incised using Bovie cautery. My tax accounting assistant then held a handheld appendiceal retractor [...] it, and then placed a Cloward lamina coding support specialist on the right side of the disk [...] bodies of C6 and C7. Cloward lamina coding support specialist was removed and the graft was countersunk [...] was then taken confirming my position. My tax accounting assistant again held appendiceal retractors to retract [...] much as the C6-7 one. Cloward lamina coding support specialist was placed on the right side. Subtotal [...] flushed withthe vertebral bodies of C3-4. Lamina coding support specialist was removed. I countersunk the graft about [...] No compromise of the C3-4 space where this allograft spacer was and no compromise of the disk spaces above or below the fuse construct. I then placed the second two screws. All screws were [...] with 2 Ray-José sponges. We waited about 4-5 minutes. Packing was removed. There was no active bleeding. Drain was not felt to be necessary. The wound was then closed in layers in a [...] the operating room table to his hospital bedin a supine position. He was awakened, extubated, and transferred to the recovery room supine and in stable condition. In the recovery room, the patient's voice was normal. He was able to swallow hissaliva easily. He had no radicular arm pain and was neurologically intact in both arms, C5-T1 dermatomes and intact in both legs, L3-S1 dermatomes. There was no intraoperative or postoperative complications. Estimated blood loss again was 150 cc. Fluid replacement 2000 mL crystalloid. Specimen was C3-4 and C6-7 disks. ADDENDUM: Galina Hummel, nurse practitioner, was engineer first assistant for this procedure. Her responsibilities included, she [...] could not have been done without a engineer first assistant. Tammy Rosado/MAXIME /[id number] cc: Jennifer Kay M.D. OPERATIVE REPORT - OP HOLOGY ASSOCIATE * Brief Op Note - Jennifer Kay [...] Role: * Jennifer Kay MD - Primary Assistant Case Manager(s): Galina Hummel NP Anesthesia Type: general Complications: [...] By: Jennifer Kay MD 10/02/2018 3:15 PM Jnenifer Kay MD HOLOGY ASSOCIATE documented in this encounter Plan of Treatment Not on file documented as of this encounter Procedures Procedure Name Priority Date/Time Associated Diagnosis Comments CARDIAC RHYTHM STRIP ORDER 10/04/2018 2:06 PM PSYCHOLOGY ASSOCIATE OT EVAL AND TREAT Routine 10/02/2018 7:29 PM PSYCHOLOGY ASSOCIATE PT EVAL AND TREAT Routine 10/02/2018 7:29 PM PSYCHOLOGY ASSOCIATE XR CERVICAL SPINE 2 OR 3VW STAT 10/02/2018 5:55 PM PSYCHOLOGY ASSOCIATE Herniated nucleus pulposus, C3-4 left Osteoarthritis of cervical spine, unspecified spinal osteoarthritis complication status Stenosis of cervical spine GROSS + MICRO EXAM (ILL) Routine 10/02/2018 3:14 PM PSYCHOLOGY ASSOCIATE Herniated nucleus pulposus, C3-4 left Osteoarthritis of cervical spine, unspecified spinal osteoarthritis complication status Stenosis of cervical spine DISCECTOMY WITH FUSION ANTERIOR CERVICAL (ACDF) MULTI-LEVEL 10/02/2018 12:23 PM PSYCHOLOGY ASSOCIATE Herniated nucleus pulposus, C3-4 left Osteoarthritis of cervical spine, unspecified spinal osteoarthritis complication status Stenosis of cervical spine Special Needs BONE SPACERS, SYNTHES VECTRA-T PLATESNOTIFIED MANJIT AND JOHN @ SYNTHES BLOOD TYPE VERIFICATION Routine 10/02/2018 10:17 AM PSYCHOLOGY ASSOCIATE documented in this encounter Results * CARDIAC RHYTHM STRIP ORDER (10/04/2018 2:06 PM PSYCHOLOGY ASSOCIATE) Narrative 10/04/2018 2:06 PM PSYCHOLOGY ASSOCIATE Ordered by an unspecified provider. Scanned Document CARDIAC SERVICES ORD ERABLES * XR CERVICAL SPINE 2 OR 3 VW [id number] (10/02/2018 5:55 PM PSYCHOLOGY ASSOCIATE) Anatomical Region Laterality Modality Spine Radiographic Leola ging 10/02/2018 6:04 PM PSYCHOLOGY ASSOCIATE Impressions 10/02/2018 6:05 PM PSYCHOLOGY ASSOCIATE Anterior fusion hardware is in place at C6-C7 with intervertebral graft. Bones and hardware are in good alignment at conclusion of exam. Narrative 10/02/2018 6:05 PM PSYCHOLOGY ASSOCIATE PROCEDURE: XR CERVICAL SPINE 2 OR 3VW [...] + MICRO EXAM (ILL) (10/02/2018 3:14 PM PSYCHOLOGY ASSOCIATE) Case Report Surgical Pathology Report ? Case: [id number] ? Authorizing Provider: ??Jennifer Kay MD ?Collected: ? 10/02/2018 03:14 PM ? Ordering Location: ? [facility] ? Received: ?10/03/2018 06:56 AM ? Pathologist: ? Julian Alexis MD ? Specimen: ?Disc Tissue, C3-4;C6-7 ? 10/05/2018 9:19 AM PSYCHOLOGY ASSOCIATE [facility] Final Diagnosis DISC FRAGMENTS, C3-4 AND C6-7, ANTERIOR CERVICAL DISCECTOMY WITH FUSION: - FRAGMENTS OF DEGENERATING FIBROCARTILAGINOUS DISC. - FRAGMENTS OF UNREMARKABLE BONE. - NEGATIVE FOR ACUTE INFLAMMATION AND NEOPLASM. ZOË/chidi 10/05/2018 9:19 AM PSYCHOLOGY ASSOCIATE [facility] Clinical History Herniated nucleus pulposus, C3-4 left; Osteoarthritis of cervical spine. 10/05/2018 9:19 AM PSYCHOLOGY ASSOCIATE [facility] Gross Description Specimen received in formalin labeled Mandie Cotter labeled as ? disc tissue C3-C4; C6-7? , consists of irregular fragments of warren-white to warren-brown soft tissue and cartilage tissue together aggregating 3 cm. There is no abnormal pigmentation. Specimen is submitted in one cassette after decalcification. RP/jzr 10/05/2018 9:19 AM [facility] Microscopic Description Microscopic examination is performed and substantiates the above diagnosis. 10/05/2018 9:19 AM [facility] Performed By Performed by [facility] [place]. [address] 10/05/2018 9:19 AM PSYCHOLOGY ASSOCIATE [facility] Embedded Images 10/05/2018 9:[address] [facility] Pathology/Cytol ogy SPECIMEN FROM INTERVERTEBRAL DISC / Unknown 10/02/2018 3:14 PM PSYCHOLOGY ASSOCIATE 10/03/2018 6:56 AM PSYCHOLOGY ASSOCIATE Jennifer Kay MD LAB - PATHOLOGY/CYTO LOGY ORDERABLES Performing Organization Address City/[facility]/ZIP Co de Phone Number [facility] [address] * BLOOD TYPE VERIFICATION (10/02/2018 10:17 AM PSYCHOLOGY ASSOCIATE) ABO O 10/02/2018 11:[address] [facility] Rh Type Positive 10/02/2018 11:[address] [facility] Blood Bank BLOOD SPECIMEN / Unknown Lab Venipuncture / Unknown 10/02/2018 10:17 AM PSYCHOLOGY ASSOCIATE 10/02/2018 10:38 AM PSYCHOLOGY ASSOCIATE Jennifer Kay MD LAB - BLOOD BANK ORD ERABLES [facility] [address] documented in this encounter Visit Diagnoses Diagnosis Cervical stenosis of spinal canal- Primary Spinal stenosis in cervical region Herniated nucleus pulposus, C3-4 left Displacement of cervical intervertebral disc without myelopathy Osteoarthritis of cervical spine, unspecified spinal osteoarthritis complication status Stenosis of cervical spine Spinal stenosis in cervical region Cervical stenosis of spinal canal Spinal stenosis in cervical region Herniated nucleus pulposus, C3-4 left Displacement of cervical intervertebral disc without myelopathy Osteoarthritis of cervical spine, unspecified spinal osteoarthritis complication status Stenosis of cervical spine Spinal stenosis in cervical region documented in this encounter Administered Medications Inactive Administered Medications - up to 3 most recent administrations Medication Order MAR Action Action Date Dose Rate Site aspirin (ASPIRIN) chew tablet 81 mg 81 mg, Oral, DAILY, 365 doses, First dose on Mon10/02/18 at 1930, Last dose on Mon10/01/19 at 0900, Post-op $ Given 10/03/2018 9:38 AM PSYCHOLOGY ASSOCIATE 81 mg $ Given 10/02/2018 7:48 PM PSYCHOLOGY ASSOCIATE 81 mg bacitracin 100,000 Units in NaCl 0.9 % 1,000 mL irrigation PRN, Starting on Mon10/02/18 at 1341, Until Mon10/02/18 at 1728, Intra-op $ Given 10/02/2018 4:10 PM PSYCHOLOGY ASSOCIATE Opera tive Site $ Given 10/02/2018 1:41 PM PSYCHOLOGY ASSOCIATE Op erative Site bisacodyl (DULCOLAX) suppository 10 mg 10 mg, [...] If bisacodyl ineffective use Fleets enema., Post-op bupivacaine 0.5% - EPINEPHrine 1:200,000 (PF) injection PRN, Starting on Mon10/02/18 at 1341, Until Mon10/02/18 at 1728, Intra-op $ Given 10/02/2018 1:41 PM PSYCHOLOGY ASSOCIATE 6 mL Ope rative Site docusate sodium (COLACE) capsule 100 mg 100 mg, Oral, 2 TIMES DAILY, First dose on Mon10/02/18 at 2100, Until Discontinued, Post-op $ Given 10/03/2018 9:38 AM PSYCHOLOGY ASSOCIATE 100 mg $ Given 10/02/2018 9:27 PM PSYCHOLOGY ASSOCIATE 100 mg ezetimibe-simvastatin (VYTORIN) 10-10 MG tablet 1 tablet 1 tablet, Oral, AT BEDTIME, 365 doses, First dose on Mon10/02/18 at 2245, Last dose on Mon10/01/19 at 2100 $ Given 10/02/2018 10:18 PM PSYCHOLOGY ASSOCIATE 1 tablet magnesium hydroxide (MILK OF MAGNESIA) suspension 30 mL 30 mL, Oral, DAILY PRN, Constipation, Starting on Mon10/02/18 at 1929, Until Mon10/03/18 at 1652, Use MOM first. If MOM ineffective then use bisacodyl. If bisacodyl ineffective use Fleets enema. Shake well before using., Post-op $ Given 10/02/2018 7:48 PM PSYCHOLOGY ASSOCIATE 30 mL oxyCODONE-acetaminophen (PERCOCET) 7.5-325 MG tablet 1 tablet 1 tablet, Oral, EVERY 4 HOURS PRN, Moderate Pain, Starting on Mon10/03/18 at 0844, Until Mon10/03/18 at 1652 oxyCODONE-acetaminophen (PERCOCET) 7.5-325 MG tablet 2 tablet 2 tablet, Oral, EVERY 4 HOURS PRN, Severe Pain, Starting on Mon10/03/18 at 0845, Until Mon10/03/18 at 1652 $ Given 10/03/2018 9:38 AM PSYCHOLOGY ASSOCIATE 2 tablet s pantoprazole (PROTONIX) injection 40 mg 40 mg, Intravenous, DAILY, 365 doses, First dose on Mon10/02/18 at 1930, Last dose on Mon10/01/19 at 0900, For every 40 mg of pantoprazole mix with 10 mL Normal Saline (final concentration = 4 mg/mL). Inject SLOWLY over 2 min., Post-op $ Given 10/03/2018 9:38 AM PSYCHOLOGY ASSOCIATE 40 mg $ Given 10/02/2018 7:48 PM PSYCHOLOGY ASSOCIATE 40 mg sodium phosphate rectal (FLEET SALINE) enema 133 mL 133 mL (1 enema), Rectal, DAILY PRN, Constipation, Starting on Mon10/02/18 at 1929, Until Mon10/03/18 at 1652, Use MOM first. If MOM ineffective then use bisacodyl. If bisacodyl ineffective use Fleets enema., Post-op thrombin (recombinant) (RECOTHROM) solution PRN, Starting on Mon10/02/18 at 1341, Until Mon10/02/18 at 1728, Intra-op $ Given 10/02/2018 1:41 PM PSYCHOLOGY ASSOCIATE 5,000 Units Operative Site documented in this encounter Active and Recently Administered Medications Times are shown in PSYCHOLOGY ASSOCIATE. Scheduled Medication Order 10/01/2018 10/02/2018 10/03/2018 aspirin (ASPIRIN) chew tablet 81 mg 81 mg, Oral, DAILY, 365 doses, First dose on Mon10/02/18 at 1930, Last dose on Mon10/01/19 at 0900, Post-op 1948 ($ Given - Provider: Gee Chávez RN) 0938 ($ Given - Provider: Kaci Diaz, GINA) ceFAZolin (ANCEF) 2,000 mg in 50 ml IVPB (COMPLETED) 2,000 mg (2 g), at 100 mL/hr, Intravenous, ONCE, 1 dose, On Mon10/02/18 at 0945, Indication for anti-infective therapy: Surgical prophylaxis, Pre-op 1240 ($ Given - Provider: Jaz العراقي APRN-[facility]) ceFAZolin (ANCEF) 2,000 mg in 50 ml IVPB (COMPLETED) 2,000 mg (2 g), at 100 mL/hr, Intravenous, EVERY 8 HOURS, 2 doses, First dose on Mon10/02/18 at 2200, Last dose on Mon10/03/18 at 0600, Last dose to be completed within 24 hours of close of incision., Indication for anti-infective therapy: Surgical prophylaxis, Post-op 2152 ($ New Bag/Syringe - Provider: Gee Chávez [...] on Mon10/02/18 at 2100, Until Discontinued, Post-op 2127 ($ Given - Provider: Gee Chávez, RN) 0938 ($ Given - Provider: Kaci Diaz, RN) ezetimibe-simvastatin (VYTORIN) 10-10 MG tablet 1 [...] 1024 ($ Given - Provider: Patsy Adams, GINA) lidocaine (XYLOCAINE MPF) 1 % injection 0.2 mL (CANCELED) 0.2 mL, Infiltration, PRE-OP MULTIPLE, 3 doses, Starting on Mon10/02/18 at 0956, Until Mon10/02/18 at 1857, May be used (0.2 ml locally to anesthetize prior to insertion)., Pre-op 1012 ($ Given - Provider: Patsy Adams, GINA) midazolam (VERSED) injection 2 mg (COMPLETED) 2 mg, Intravenous, PRE-OP ONCE, 1 dose, On Mon10/02/18 at 0956, Pre-op 1218 ($ Given - Provider: Patsy Adams, GINA) pantoprazole (PROTONIX) injection 40 mg 40 mg, Intravenous, DAILY, 365 doses, First dose on Mon10/02/18 at 1930, Last dose on Mon10/01/19 at 0900, For every 40 mg of pantoprazole mix with 10 mL Normal Saline (final concentration = 4 mg/mL). Inject SLOWLY over 2 min., Post-op 194 ($ Given - Provider: Gee Chávez RN) 0938 ($ Given - Provider: Kaci Diaz, RN) Continuous Medication Order 10/01/2018 10/02/2018 10/03/2018 0.9% NaCl infusion (CANCELED) at 125 mL/hr, Intravenous, CONTINUOUS, Starting on Mon10/02/18 at 1930, Until Mon10/03/18 at 0845, Post-op 1940 ($ New Bag/Syringe - Provider: Gee Chávez RN)1940 (Current Rate - Provider: Gee Chávez RN)1940 (Current Rate - Provider: Gee Chávez RN)2225 (Current Rate - Provider: Gee Chávez RN) 0127 (Current Rate - Provider: Gee Chávez RN)0135 (Current Rate - Provider: Gee Chávez RN)0136 (Current Rate - Provider: Gee Chávez RN)0336 (Current Rate - Provider: Gee Chávez RN)0348 (Current Rate - Provider: Gee Chávez [...] Kaci Diaz RN) HYDROmorphone (DILAUDID) 20 mg/100ml MED DIR (CANCELED) Intravenous, MED DIR, Starting on Mon10/02/18 at 1745, Until Mon10/03/18 at 0845, - Bolus Dose:0.5 mg - MED DIR Dose: 0.1 mg - Lockout: 20 minutes - 1 hour limit: 0.7 mg - Continuous Dose: 0.4 mg/hr. If respiratory depression is present (less than 8/minute), stop MED DIR and administer naloxone (NARCAN) 0.4 mg every 30 seconds PRN up to 2 mg. Administer 100% oxygen while respiratory depression persists. NOTIFY PHYSICIAN IMMEDIATELY., Post-op 1801 ($ New Bag/Syringe - Provider: Angela Manning RN) lactated ringers infusion (CANCELED) at 20 mL/hr, Intravenous, PRE-OP CONTINUOUS, Starting on Mon10/02/18 at 1000, Until Mon10/02/18 at 1857, Pre-op 1019 ($ New Bag/Syringe - Provider: Patsy Adams, GINA)1315 ($ New Bag/Syringe - Provider: Jaz العراقي RESEARCH PROFESSOR OF BIOSTATISTICS-PATIENT FINANCIAL SERVICES SPECIALIST)1635 ($ New Bag/Syringe - Provider: Anupam Valdez RESEARCH PROFESSOR OF BIOSTATISTICS-PATIENT FINANCIAL SERVICES SPECIALIST)1726 (Anesthesia Volume Adjustment - Provider: Rasheed Abraham RESEARCH PROFESSOR OF BIOSTATISTICS-PATIENT FINANCIAL SERVICES SPECIALIST) PRN Medication Order 10/01/2018 10/02/2018 10/03/2018 acetaminophen (TYLENOL) tablet 650 mg 650 mg, Oral, EVERY 4 HOURS PRN, Fever, For temperature GREATER than 101 , Starting on Mon10/02/18 at 1929, Until Mon10/03/18 at 1652, Maximum allowable Acetaminophen amount = 4 Grams (4000 mg) / 24 hours., Post-op jdwldlhq-ikdvfwnmf-fboxnqvyn ne (MAALOX;MYLANTA) suspension 20 mL 20 mL, Oral, EVERY 6 HOURS PRN, GI Upset, Starting on Mon10/02/18 at 1929, Until Mon10/03/18 at 1652, Shake well before [...] is unable to take oral medications., Post-op 1948 (See Alternative - Provider: Gee Chávez RN) [...] PRN, Muscle Spasms, Starting on Mon10/02/18 at 1929, Until Mon10/03/18 at 1652, Post-op diphenhydrAMINE (BENADRYL) capsule 25 mg 25 [...] less than 8, Starting on Mon10/02/18 at 192, Until Mon10/03/18 at 1652, If respiratory rate < 8/min administer naloxone [...] 1652 0938 ($ Given - Provider: Kaci Diaz, RN) sodium phosphate rectal (FLEET SALINE) enema 133 mL(Linked Group 1) 133 mL (1 enema), Rectal, DAILY PRN, Constipation, Starting on Mon10/02/18 at 1929, Until Mon10/03/18 at 165, Use MOM first. If MOM ineffective then use bisacodyl. If bisacodyl ineffective use Fleets enema., Post-op 194 (See Alternative - Provider: Gee Chávez RN) [...] Post-op documented in this encounter Care Teams Cooking Appliance Repair Technician Relationship Specialty Start Date End Date Yosvany Gonsalez MD [address] [place] [phone] PCP - General Internal Medicine 04/08/13 09/03/19 documented as of this encounter
--- OUTSIDE RECORDS SUMMARY | 2024-11-02 07:29 | XMS_ITS | Encounter Summary ---
Author Organization [facility] Address [address] [place] [address] Care Team Providers Care Electronics Detail Draftsperson Name Role Phone Yosvany Gonsalez MD Primary Care Provider [phone] Reason for Visit * Reason Comments Comprehensive Chronic Disease Evaluation Medication Check Follow-up Encounter Details Date Type Department Care Team (Late st Contact Info) Description 04/26/2018 4:15 PM CDT Office Visit [facility] Medical [facility] - Family Medicine [address], [place] [address] Yosvany Gonsalez MD [address] [place] [address] [place] [address] Annual physical exam (Primary Dx); Mixed hyperlipidemia; Nicotine dependence, uncomplicated, unspecified nicotine product type; High risk medications (not anticoagulants) long-term use; RANDY on CPAP Social History Tobacco Use Types Packs/Day Years [...] Sign Reading Time Taken Comments Blood Pressure 135/79 04/26/2018 4:28 PM CDT Pulse 80 04/26/2018 4:28 PM CDT Temperature 36.5 ??C (97.7 ??F) 04/26/2018 4:28 PM CD T Respiratory Rate - - Oxygen Saturation 97% 04/26/2018 4:28 PM CDT Inhaled Oxygen Concentration - - Weight 79 kg (174 lb 3.2 oz) 04/26/2018 4:28 PM CDT Height 170.2 cm (5' 7 ) 04/26/2018 4:28 PM CDT Body Mass Index 27.28 04/26/2018 4:28 PM CDT documented in this encounter Progress Notes * Yosvany Gonsalez MD - 04/26/2018 5:57 PM CDT Date: 04/26/2018 Pt Name: Natan Patel : 1955 AGE: 62 y.o. SEX: male SUBJECTIVE: Chief Complaint Patient presents with ??? Comprehensive Chronic Disease Evaluation ??? Medication Check ??? 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 Hyperlipidemia currently on statins diet doing well with no complaints. Heavy tobacco abuse, reinforce need to quit smoking, has cut down to 2 cigarettes daily, continues to work on quitting completely. NO SIGNIFICANT CHANGE IN WEIGHT, NO RECENT ISSUES WITH FEVER, CHILLS. ALL MEDICATIONS WITH INSTRUCTIONS REVIEWED AT TODAY'S VISIT Current Outpatient Prescriptions Medication Sig Dispense Refill ??? atorvastatin (LIPITOR) 10 MG tablet Take 1 tablet by mouth once daily 90 tablet 1 ??? pantoprazole EC (PROTONIX) 40 MG tablet TAKE 1 TABLET ONCE DAILY 90 tablet 3 ??? aspirin (ASPIRIN) 81 MG chew tablet Take 81 mg by mouth once daily ??? [place]-3 Fatty Acids (FISH OIL) 1000 MG capsule Take by mouth once daily ??? Cholecalciferol (VITAMIN D) 2000 UNITS CAPS capsule Take 2,000 Units by mouth once daily ??? vitamin E (TOCOPHERYL) 400 UNIT tablet Take 400 Units by mouth once daily ??? albuterol HFA (PROVENTIL;VENTOLIN;PROAIR) 108 (90 BASE) MCG/ACT inhaler Inhale 2 puffs by mouthevery 6 hours as needed for Shortness of Breath, Wheezing or Cough (Patient not taking: Reported on04/26/2018) 1 Inhaler 0 ??? methylPREDNISolone (MEDROL DOSEPAK) 4 MG tablet Take by mouth as directed (Patient not taking: Reported on 04/26/2018) 21 tablet 0 ??? benzonatate (TESSALON) 200 MG capsule Take 1 capsule by mouth 3 times daily as needed for Cough(Patient not taking: Reported on 03/03/2018) 30 capsule 0 ??? CHERATUSSIN AC 100-10 MG/5ML syrup No current facility-administered medications for this visit. [...] of education: 12 Occupational History ??? [employer] Social History Main Topics ??? Smoking status: Current Every Day Smoker Packs/day: 0.50 Types: Cigarettes ??? Smokeless tobacco: Never Used ??? Alcohol [...] Normal OBJECTIVE: WDWN, Alert, No Distress BP 135/79 Pulse 80 Temp 97.7 ??F (36.5 ??C) (Oral) Ht 1.702 m (5' 7 ) Wt 79 kg (174 lb 3.2 oz) [id number]% BMI 27.28 kg/m2 PHYSICAL EXAM: BP 135/79 Pulse 80 Temp 97.7 ??F (36.5 ??C) (Oral) Ht 1.702 m (5' 7 ) Wt 79 kg (174 lb 3.2 oz) [id number]% BMI 27.28 kg/m2 General appearance: alert, cooperative, no distress [...] Recent Results (from the past 1344 hour(s)) CBC W AUTO DIFFERENTIAL Collection Time: 04/16/18 7:47 AM Result Value Ref Range White Blood Cell Count 4.7 3.8 - 10.8 Thousand/uL RBC 4.68 4.20 - 5.80 Million/uL Hgb 15.3 13.2 - 17.1 g/dL Hct 43.7 38.5 - 50.0 % MCV 93.4 80.0 - 100.0 fL MCH 32.7 27.0 - 33.0 pg MCHC 35.0 32.0 - 36.0 g/dL RDW 13.0 11.0 - 15.0 % Plt Ct 248 140 - 400 Thousand/uL MPV 10.1 7.5 - 12.5 fL Absolute Neutrophils 2515 1500 - 7800 cells/uL Absolute Lymphocytes 1528 850 - 3900 cells/uL Absolute Monocytes 564 200 - 950 cells/uL Absolute Eosinophils 52 15 - 500 cells/uL Absolute Basophils 42 0 - 200 cells/uL Gran 53.5 % Lymph 32.5 % Luna 12.0 % Eos 1.1 % Baso 0.9 % COMPREHENSIVE METABOLIC PANEL Collection Time: 04/16/18 7:47 AM Result Value Ref Range Glucose 96 65 - 99 mg/dL BUN 14 7 - 25 mg/dL Creatinine 0.80 0.70 - 1.25 mg/dL eGFR MDRD 95 > OR = 60 mL/min/1.73m2 eGFR MDRD AFR AMR 110 > OR = 60 mL/min/1.73m2 BUN/Creat NOT APPLICABLE 6 - 22 (calc) Sodium 140 135 - 146 mmol/L Potassium 4.6 3.5 - 5.3 mmol/L Chloride 105 98 - 110 mmol/L CO2 27 20 - 31 mmol/L Calcium 9.3 8.6 - 10.3 mg/dL Protein Total 7.3 6.1 - 8.1 g/dL Albumin 4.6 3.6 - 5.1 g/dL Globulin Total 2.7 1.9 - 3.7 g/dL (calc) Alb/Glob Ratio 1.7 1.0 - 2.5 (calc) Bili Total 1.0 0.2 - 1.2 mg/dL Alk Phos 41 40 - 115 U/L AST/SGOT 18 10 - 35 U/L ALT/SGPT 17 9 - 46 U/L HEMOGLOBIN A1C Collection Time: 04/16/18 7:47 AM Result Value Ref Range Hemoglobin A1c 5.2 <5.7 % of total Hgb LIPID PROFILE Collection Time: 04/16/18 7:47 AM Result Value Ref Range Cholesterol 176 <200 mg/dL Chol HDL 42 >40 mg/dL Triglycerides 133 <150 mg/dL LDL Calculated 109 (H) mg/dL (calc) CHOL/HDLC RATIO 4.2 <5.0 (calc) Non HDL Cholesterol 134 (H) <130 mg/dL (calc) T4 FREE Collection Time: 04/16/18 7:47 AM Result Value Ref Range T4 FREE 1.2 0.8 - 1.8 ng/dL TSH Collection Time: 04/16/18 7:47 AM Result Value Ref Range TSH 1.59 0.40 - 4.50 mIU/L PROSTATE SPECIFIC ANTIGEN SCREEN Collection Time: 04/16/18 7:47 AM Result Value Ref Range PSA 0.8 < OR = 4.0 ng/mL URIC ACID BLOOD Collection Time: 04/16/18 7:47 AM Result Value Ref Range Uric Acid 6.6 4.0 - 8.0 mg/dL ASSESSMENT: ICD-10-CM 1. Annual physical exam Z00.00 CBC W AUTO DIFFERENTIAL COMPREHENSIVE METABOLIC PANEL LIPID PROFILE TSH URIC ACID BLOOD 2. Mixed hyperlipidemia E78.2 CBC W AUTO DIFFERENTIAL COMPREHENSIVE METABOLIC PANEL LIPID PROFILE TSH URIC ACID BLOOD 3. Nicotine dependence, uncomplicated, unspecified nicotine product type F17.200 CBC W AUTO DIFFERENTIAL COMPREHENSIVE METABOLIC PANEL LIPID PROFILE TSH URIC ACID BLOOD 4. High risk medications (not anticoagulants) long-term use Z79.899 CBC W AUTO DIFFERENTIAL COMPREHENSIVE METABOLIC PANEL LIPID PROFILE TSH URIC ACID BLOOD 5. RANDY on CPAP G47.33 CBC W AUTO DIFFERENTIAL Z99.89 COMPREHENSIVE METABOLIC PANEL LIPID PROFILE TSH URIC ACID BLOOD PLAN: Orders Placed This Encounter ??? CBC W AUTO DIFFERENTIAL ??? COMPREHENSIVE METABOLIC PANEL ??? LIPID PROFILE ??? TSH ??? URIC ACID BLOOD ??? atorvastatin (LIPITOR) 10 MG tablet Return in about 7 months (around 11/26/2018). RECENT COMPREHENSIVE SET OF LABS INCLUDING CBC, CMP, FBS ETC WERE ALL REVIEWED, DEVIATION FROM NORMAL NOTED, QUESTIONS, CONCERNS WERE ADDRESSED . USE OF CURRENT PRESCRIPTION MEDICATIONS, IT'S MANAGEMENT AND IMPACT ON PATIENT'S HEALTH DISCUSSED. Yosvany Gonsalez MD documented in this encounter Plan of Treatment Scheduled Orders Name Type Priority Associated Diagnoses Orde r Schedule CBC W AUTO DIFFERENTIAL Lab Routine Annual physical exam Mixed hyperlipidemia Nicotine dependence, uncomplicated, unspecified nicotine product type High risk medications (not anticoagulants) long-term use RANDY on CPAP Ordered: 04/26/2018 COMPREHENSIVE METABOLIC PANEL Lab Routine Annual physical exam Mixed hyperlipidemia Nicotine dependence, uncomplicated, unspecified nicotine product type High risk medications (not anticoagulants) long-term use RANDY on CPAP Ordered: 04/26/2018 LIPID PROFILE Lab Routine Annual physical exam Mixed hyperlipidemia Nicotine dependence, uncomplicated, unspecified nicotine product type High risk medications (not anticoagulants) long-term use RANDY on CPAP Ordered: 04/26/2018 TSH Lab Routine Annual physical exam Mixed hyperlipidemia Nicotine dependence, uncomplicated, unspecified nicotine product type High risk medications (not anticoagulants) long-term use RANDY on CPAP Ordered: 04/26/2018 URIC ACID BLOOD Lab Routine Annual physical exam Mixed hyperlipidemia Nicotine dependence, uncomplicated, unspecified nicotine product type High risk medications (not anticoagulants) long-term use RANDY on CPAP Ordered: 04/26/2018 documented as of this encounter Visit Diagnoses Diagnosis Annual physical exam- Primary Routine general medical examination at a health care facility Mixed hyperlipidemia Nicotine dependence, uncomplicated, unspecified nicotine product type High risk medications (not anticoagulants) long-term use Encounter for long-term (current) use of other medications RANDY on CPAP Obstructive sleep apnea (adult) (pediatric) documented in this encounter Care Teams Electronics Detail Draftsperson Relationship Specialty Start Date End Date Yosvany Gonsalez MD [address] [place] [phone] PCP - General Internal Medicine 04/08/13 09/03/19 documented as of this encounter
--- OUTSIDE RECORDS SUMMARY | 2024-11-02 07:29 | XMS_ITS | Encounter Summary ---
Author Organization [facility] Address [address] [place] [address] Care Team Providers Care Label Press Operator Name Role Phone Yosvany Gonsalez MD Primary Care Provider [phone] Reason for Visit * Reason Comments Refill Request Encounter Details Date Type Department Care Team (Late st Contact Info) Description 12/15/2017 Refill [facility] Medical [facility] - Family Medicine [address] [phone] Yosvany Gonsalez MD [address] [place] [phone] Refill Request Social History Tobacco Use Types Packs/Day [...] on filedocumented in this encounter Care Teams Label Press Operator Relationship Specialty Start Date End Date Yosvany Gonsalez MD [address] [phone] PCP - General Internal Medicine 04/08/13 09/03/19 documented as of this encounter
--- OUTSIDE RECORDS SUMMARY | 2024-11-02 07:30 | XMS_ITS | Encounter Summary ---
Author Organization [facility] Address [address] [place] [address] Care Team Providers Care Thermal Spray Operator Name Role Phone Yosvany Gonsalez MD Primary Care Provider [phone] Reason for Visit * Reason Onset Date Comments Results 03/11/2016 Encounter Details Date Type Department Care Team (Late st Contact Info) Description 03/11/2016 Telephone [facility] - Family Medicine [address] [place] [phone] Yosvany Gonsalez MD [address] [place] [address] Results Social History Tobacco Use Types Packs/Day [...] encounter Miscellaneous Notes * Telephone Encounter - Yosvany Gonsalez MD - 03/11/2016 6:18 PM CDT Done for quest * Telephone Encounter - Wilma Lomeli LPN - 03/11/2016 5:15 PM CDT Needs lab work ordered for quest for his next appt please documented in this encounter Plan of Treatment Not on file documented as of this encounter Visit Diagnoses Diagnosis Mixed hyperlipidemia- Primary Cigarette nicotine dependence without complication Tobacco use disorder Special screening for malignant neoplasm of prostate RANDY on CPAP Obstructive sleep apnea (adult) (pediatric) Chronic gastritis Atrophic gastritis without mention of hemorrhage documented in this encounter Care Teams Thermal Spray Operator Relationship Specialty Start Date End Date Yosvany Gonsalez MD [address] [place] [phone] PCP - General Internal Medicine 04/08/13 09/03/19 documented as of this encounter
--- OUTSIDE RECORDS SUMMARY | 2024-11-02 07:30 | XMS_ITS | Encounter Summary ---
Author Organization [facility] Address [address] [place] [address] Care Team Providers Care Bun Panner Name Role Phone Yosvany Gonsalez MD Primary Care Provider [phone] Reason for Visit * Reason Onset Date Comments MEDICATION REFILL 12/29/2016 Encounter Details Date Type Department Care Team (Late st Contact Info) Description 12/29/2016 Refill [facility] Medical [facility] - Family Medicine [address] [place] [phone] Yosvany Gonsalez MD [address] [place] [address] MEDICATION REFILL Social History Tobacco Use Types Packs/Day Years Used Date Smoking Tobacco: Light Smoker Cigarettes Smokeless Tobacco: Never Alcohol Use Standard Drinks/Week Comments Yes 5 (1 standard drink = 0.6 oz pur e alcohol) Sex and Gender Information Value Date Recorded Sex Assigned at Not on file Gender Identity Not on file Sexual Orientation Not on file documented as of this encounter Miscellaneous Notes * Telephone Encounter - Sarai Richmond RN - 12/29/2016 3:56 PM CST RF per protocol. H LATHE OPERATOR documented in this encounter Plan of Treatment Not on file documented as of this encounter Visit Diagnoses Not on filedocumented in this encounter Care Teams Bun Panner Relationship Specialty Start Date End Date Yosvany Gonsalez MD [address] [place] [phone] PCP - General Internal Medicine 04/08/13 09/03/19 documented as of this encounter
--- OUTSIDE RECORDS SUMMARY | 2024-11-02 07:30 | XMS_ITS | Encounter Summary ---
Author Organization [facility] Address [address] [place] [address] Care Team Providers Care Drag Seiner Name Role Phone Yosvany Gonsalez MD Primary Care Provider [phone] Reason for Visit * Reason Comments Pre-op Clearance partial knee replace ment Encounter Details Date Type Department Care Team (Latest Contact Info) Description 12/14/2016 3:00 PM ASSISTANT DIRECTOR OF PLANT OPERATIONS Office Visit [facility] - Family Medicine [address] [place] [address], [place] [phone] Yosvany Gonsalez MD [address] [place] [phone] Pre-operative clearance (Primary Dx); Mixed hyperlipidemia; Primary osteoarthritis of left knee; RANDY on CPAP; Cigarette nicotine dependence without complication Social History Tobacco Use Types Packs/Day Years Used Date Smoking Tobacco: Light Smoker Cigarettes Smokeless Tobacco: Never Tobacco Cessation:Ready to Q uit: Yes; Counseling Given: Yes Alcohol Use Standard Drinks/Week Comments Yes 5 (1 standard drink = 0.6 oz pur e alcohol) Sex and Gender Information Value Date Recorded Sex Assigned at Not on file Gender Identity Not on file Sexual Orientation Not on file documented as of this encounter Last Filed Vital Signs Vital Sign Reading Time Taken Comments Blood Pressure 155/90 12/14/2016 3:22 PM ASSISTANT DIRECTOR OF PLANT OPERATIONS Pulse 73 12/14/2016 3:22 PM ASSISTANT DIRECTOR OF PLANT OPERATIONS Temperature 36.1 ??C (97 ??F) 12/14/2016 3:22 PM ASSISTANT DIRECTOR OF PLANT OPERATIONS Respiratory Rate 16 12/14/2016 3:22 PM ASSISTANT DIRECTOR OF PLANT OPERATIONS Oxygen Saturation 99% 12/14/2016 3:22 PM ASSISTANT DIRECTOR OF PLANT OPERATIONS Inhaled Oxygen Concentration - - Weight 80.3 kg (177 lb) 12/14/2016 3:22 PM ASSISTANT DIRECTOR OF PLANT OPERATIONS Height 167.6 cm (5' 6 ) 12/14/2016 3:22 PM ASSISTANT DIRECTOR OF PLANT OPERATIONS Body Mass Index 28.57 12/14/2016 3:22 PM ASSISTANT DIRECTOR OF PLANT OPERATIONS documented in this encounter Progress Notes * Yosvany Gonsalez MD - 12/14/2016 3:41 PM CST Date: 12/14/2016 Pt Name: Natan Patel : 1955 AGE: 61 y.o. SEX: male SUBJECTIVE: Chief Complaint Patient presents with ??? Pre-op Clearance partial knee replacement History of Present Illness: Patient is here for medical clearance, anticipating partial knee replacement on the left side, all conservative interventions have failed, surgery scheduled for next week. Heart rate and blood pressure stable at home, no contains or chest pain, chest tightness, palpitations, shortness of breath or dizziness, functional status excellent. Anxiety, stress under control with no flareups. Nicotine abuse has tried to cut back on tobacco use as needed as possible. Hyperlipidemia on statins diet doing well. Obstructive sleep apnea on CPAP with good compliance. ACTIVE, PAIN CONTROL ADEQUATE, COPING WITH STRESSORS WELL. FATIGUE STABLE. NO SIGNIFICANT CHANGE INWEIGHT, NO RECENT ISSUES WITH FEVER, CHILLS. ALL MEDICATIONS WITH INSTRUCTIONS REVIEWED AT TODAY'S VISIT Current Outpatient Prescriptions Medication Sig Dispense Refill ??? VYTORIN 10-10 MG tablet TAKE 1 TABLET ONCE DAILY 90 Tab 3 ??? pantoprazole EC (PROTONIX) 40 MG tablet Take 1 Tab by mouth once daily 90 Tab 3 ??? aspirin (ASPIRIN) 81 MG chew tablet Take 81 mg by mouth once daily ??? [place]-3 Fatty Acids (FISH OIL) 1000 MG capsule Take by mouth once daily ??? Cholecalciferol (VITAMIN D) 2000 UNITS CAPS capsule Take 2,000 Units by mouth once daily ??? vitamin E (TOCOPHERYL) 400 UNIT tablet Take 400 Units by mouth once daily No current facility-administered medications for this visit. PATIENT'S ALLERGY, PM,FSH REVIEWED AND EXTRAPOLATED FROM EPIC Allergies Allergen Reactions ??? Morphine Past Medical History Diagnosis Date ??? Allergy ??? Chronic airway obstruction ??? Encounter for screening for malignant neoplasm of prostate ??? Esophageal reflux Past Surgical History Procedure Laterality Date ??? Other surgery dental extraction ??? Hernia repair, inguinal 02/2012 left ??? Knee replacement ??? Colonoscopy 02/04/15 3 polyps removed History Social History ??? Marital status: Spouse name: N/A ??? Number of children: 1 ??? Years of education: 12 Occupational History ??? [employer] Social History Main Topics ??? Smoking status: Light Tobacco Smoker Packs/day: 0.25 Types: Cigarettes ??? Smokeless tobacco: Never Used ??? Alcohol use: 3.0 oz/week 6 Cans of beer per [...] Normal OBJECTIVE: WDWN, Alert, No Distress BP 155/90 (BP SITE: LEFT ARM, BP POSITION: SITTING, BP CUFF SIZE: Large Adult) Pulse 73 Temp 97 ??F(Oral) Resp 16 Ht 1.676 m (5' 6 ) Wt 80.3 kg (177 lb) SpO2 99% BMI 28.57 kg/m2 PHYSICAL EXAM: BP 155/90 (BP SITE: LEFT ARM, BP POSITION: SITTING, BP CUFF SIZE: Large Adult) Pulse 73 Temp 97 ??F(Oral) Resp 16 Ht 1.676 m (5' 6 ) Wt 80.3 kg (177 lb) SpO2 99% BMI 28.57 kg/m2 General appearance: alert, cooperative, no distress [...] the past 1344 hour(s)). ASSESSMENT: ICD-10-CM 1. Pre-operative clearance Z01.818 2. Mixed hyperlipidemia E78.2 3. Primary osteoarthritis of left knee M17.12 4. RANDY on CPAP G47.33 5. Cigarette nicotine dependence without complication F17.210 PLAN: No orders of the defined types were placed in this encounter. Return in about 3 months (around 03/13/2017). RECENT COMPREHENSIVE SET OF LABS INCLUDING CBC, [...] CLEARLY WANTS TO PROCEED Yosvany Gonsalez MD STANT DIRECTOR OF PLANT OPERATIONS documented in this encounter Plan of Treatment Not on file documented as of this encounter Visit Diagnoses Diagnosis Pre-operative clearance- Primary Preoperative examination, unspecified Mixed hyperlipidemia Primary osteoarthritis of left knee Primary localized osteoarthrosis, lower leg RANDY on CPAP Obstructive sleep apnea (adult) (pediatric) Cigarette nicotine dependence without complication Tobacco use disorder documented in this encounter Care Teams Drag Seiner Relationship Specialty Start Date End Date Yosvany Gonsalez MD [address] [place] [phone] PCP - General Internal Medicine 04/08/13 09/03/19 documented as of this encounter
--- OUTSIDE RECORDS SUMMARY | 2024-11-02 07:30 | XMS_ITS | Encounter Summary ---
Author Organization [facility] Address [address] [place] [address] Care Team Providers Care Scout Leaser Name Role Phone Yosvany Gonsalez MD Primary Care Provider [phone] Reason for Visit * Reason Comments Comprehensive Chronic Disease Evaluation Medication Check Gastritis medication efficacy but still having issues Encounter Details Date Type Department Care Team (Late st Contact Info) Description 03/11/2016 4:15 PM CDT Office Visit [facility] - Family Medicine [address] [place] [phone] Yosvany Gonsalez MD [address] [place] [address] RANDY on CPAP (Primary Dx); Mixed hyperlipidemia; Cigarette nicotine dependence without complication; High risk medications (not anticoagulants) long-term use; Chronic gastritis Social History Tobacco Use Types Packs/Day Years Used Date Smoking Tobacco: Every Day Cigarettes Smokeless Tobacco: Never Tobacco Cessation:Ready to [...] Sign Reading Time Taken Comments Blood Pressure 124/74 03/11/2016 4:09 PM CDT Pulse 80 03/11/2016 4:09 PM CDT Temperature 36.7 ??C (98 ??F) 03/11/2016 4:09 PM CDT Respiratory Rate 16 03/11/2016 4:09 PM CDT Oxygen Saturation 98% 03/11/2016 4:09 PM CDT Inhaled Oxygen Concentration - - Weight 78.9 kg (174 lb) 03/11/2016 4:09 PM CDT Height 170.2 cm (5' 7 ) 03/11/2016 4:09 PM CDT Body Mass Index 27.25 03/11/2016 4:09 PM CDT documented in this encounter Progress Notes * Yosvany Gonsalez MD - 03/11/2016 4:51 PM CDT Date: 03/11/2016 Pt Name: Natan Patel : 1955 AGE: 60 y.o. SEX: male SUBJECTIVE: Chief Complaint Patient presents with ??? Comprehensive Chronic Disease Evaluation ??? Medication Check ??? Gastritis medication efficacy but still having issues History of Present Illness: Patient is here with several issues. Sleep apnea on CPAP with good compliance, feels like it's making a difference. Chronic severe gastritis improved with use of Protonix, eating better unfortunately gaining weight. Heavy tobacco abuse with patient smoking close to a pack per day, all interventions so far unsuccessful, patient is willing to try harder. Lipids on medication start doing well. Anxiety stress in the control with no flareups. ACTIVE, PAIN CONTROL ADEQUATE, COPING WITH STRESSORS WELL. FATIGUE STABLE. NO SIGNIFICANT CHANGE INWEIGHT, NO RECENT ISSUES WITH FEVER, CHILLS. ALL MEDICATIONS WITH INSTRUCTIONS REVIEWED AT TODAY'S VISIT Current Outpatient Prescriptions Medication Sig Dispense Refill ??? pantoprazole EC (PROTONIX) 40 MG tablet Take 1 Tab by mouth once daily 90 Tab 3 ??? ezetimibe-simvastatin (VYTORIN) 10-10 MG tablet Take 1 Tab by mouth once daily 90 Tab 3 ??? aspirin (ASPIRIN) 81 MG chew tablet Take 81 mg by mouth once daily ??? [place]-3 Fatty Acids (FISH OIL) 1000 MG capsule Take by mouth once daily ??? loratadine (CLARITIN) 10 MG tablet Take 10 mg by mouth at bedtime ??? Cholecalciferol (VITAMIN D) 2000 UNITS CAPS capsule Take 2,000 Units by mouth once daily ??? vitamin E (TOCOPHERYL) 400 UNIT tablet Take 400 Units by mouth once daily No current facility-administered medications for this visit. PATIENT'S ALLERGY, PM,FSH REVIEWED AND EX[facility]OLATED FROM [facility] No Known Allergies Past Medical History Diagnosis Date ??? Allergy ??? Esophageal reflux ??? Chronic airway obstruction ??? Encounter for screening for malignant neoplasm of prostate Past Surgical History Procedure Laterality Date ??? Other surgery dental extraction ??? Hernia repair, inguinal 02/2012 left ??? Knee replacement ??? Colonoscopy 02/04/15 3 polyps removed History Social History ??? Marital Status: Spouse Name: N/A Number of Children: 1 ??? Years of Education: 12 Occupational History ??? Social History Main Topics ??? Smoking status: Current Every Day Smoker -- 0.25 packs/day Types: Cigarettes ??? Smokeless tobacco: Never Used ??? Alcohol Use: 3.0 oz/week 6 Cans of beer per week ??? Drug Use: No ??? Sexual Activity: Not on file Other Topics Concern ??? [...] Normal OBJECTIVE: WDWN, Alert, No Distress BP 124/74 mmHg Pulse 80 Temp(Src) 98 ??F (Oral) Resp 16 Wt 78.926 kg (174 lb) BMI 27.25 kg/m2 PHYSICAL EXAM: BP 124/74 mmHg Pulse 80 Temp(Src) 98 ??F (Oral) Resp 16 Wt 78.926 kg (174 lb) BMI 27.25 kg/m2 General appearance: alert, cooperative, no distress [...] the past 1344 hour(s)). ASSESSMENT: ICD-10-CM 1. RANDY on CPAP G47.33 2. Mixed hyperlipidemia E78.2 3. Cigarette nicotine dependence without complication F17.210 4. High risk medications (not anticoagulants) long-term use Z79.899 5. Chronic gastritis K29.50 PLAN: No orders of the defined types were placed in this encounter. Return if symptoms worsen or fail to improve. RECENT COMPREHENSIVE SET OF LABS INCLUDING CBC, CMP, FBS ETC WERE ALL REVIEWED, DEVIATION FROM NORMAL NOTED, QUESTIONS, CONCERNS WERE ADDRESSED . USE OF CURRENT PRESCRIPTION MEDICATIONS, IT'S MANAGEMENT AND IMPACT ON PATIENT'S HEALTH DISCUSSED. Continue use of Protonix, reinforced strongly need to quit smoking completely, patient to come backin 6 months with comprehensive studies. Yosvany Gonsalez MD documented in this encounter Plan of Treatment Not on file documented as of this encounter Visit Diagnoses Diagnosis RANDY on CPAP- Primary Obstructive sleep apnea (adult) (pediatric) Mixed hyperlipidemia Cigarette nicotine dependence without complication Tobacco use disorder High risk medications (not anticoagulants) long-term use Encounter for long-term (current) use of other medications Chronic gastritis Atrophic gastritis without mention of hemorrhage documented in this encounter Care Teams Scout Leaser Relationship Specialty Start Date End Date Yosvany Gonsalez MD [address] [place] [phone] PCP - General Internal Medicine 04/08/13 09/03/19 documented as of this encounter
--- OUTSIDE RECORDS SUMMARY | 2024-11-02 07:30 | XMS_ITS | Encounter Summary ---
Author Organization [facility] Address [address] [place] [address] Care Team Providers Care Cmm Operator Name Role Phone Yosvany Gonsalez MD Primary Care Provider [phone] Reason for Visit * Reason Comments Comprehensive Chronic Disease Evaluation Medication Check Hyperlipidemia lab results Encounter Details Date Type Department Care Team (Late st Contact Info) Description 04/26/2017 3:45 PM CDT Office Visit [facility] - Family Medicine [address], [place] [address] Yosvany Gonsalez MD [address] [place] [address] Annual physical exam (Primary Dx); Mixed hyperlipidemia; Cigarette nicotine dependence without complication; Special screening for malignant neoplasm of prostate; High risk medications (not anticoagulants) long-term use; [...] Sign Reading Time Taken Comments Blood Pressure 102/68 04/26/2017 3:46 PM CDT Pulse 81 04/26/2017 3:46 PM CDT Temperature 36.6 ??C (97.9 ??F) 04/26/2017 3:46 PM CD T Respiratory Rate 16 04/26/2017 3:46 PM CDT Oxygen Saturation 97% 04/26/2017 3:46 PM CDT Inhaled Oxygen Concentration - - Weight 75.7 kg (166 lb 12.8 oz) 04/26/2017 3:46 PM CDT Height 170.2 cm (5' 7 ) 04/26/2017 3:46 PM CDT Body Mass Index 26.12 04/26/2017 3:46 PM CDT documented in this encounter Progress Notes * Yosvany Gonsalez MD - 04/26/2017 4:10 PM CDT Date: 04/26/2017 Pt Name: Natan Patel : 1955 AGE: 61 y.o. SEX: male SUBJECTIVE: Chief Complaint Patient presents with ??? Comprehensive Chronic Disease Evaluation ??? Medication Check ??? Hyperlipidemia lab results History of Present Illness: Patient is here for his annual check. Hypertension, heart rate is under control, no complaints of chest pain, chest tightness, palpitations, shortness of breath or dizziness Obstructive sleep apnea on CPAP, good compliance. Anxiety, stress under control with no flareups. Acid reflux on Protonix, lifestyle measures, doing well. Hyperlipidemia on statins, diet doing well. COMPLIANT WITH MEDICATIONS , ACTIVE, PAIN CONTROL ADEQUATE, COPING WITH STRESSORS WELL. FATIGUE STABLE. NO SIGNIFICANT CHANGE IN WEIGHT, NO RECENT ISSUES WITH FEVER, CHILLS. ALL MEDICATIONS WITH INSTRUCTIONS REVIEWED AT TODAY'S VISIT Current Outpatient Prescriptions Medication Sig Dispense Refill ??? pantoprazole EC (PROTONIX) 40 MG tablet Take 1 Tab by mouth once daily 90 Tab 3 ??? VYTORIN 10-10 MG tablet TAKE 1 TABLET ONCE DAILY 90 Tab 3 ??? aspirin (ASPIRIN) 81 MG chew tablet Take 81 mg by mouth once daily ??? [place]-3 Fatty Acids (FISH OIL) 1000 MG capsule Take by mouth once daily ??? Cholecalciferol (VITAMIN D) 2000 UNITS CAPS capsule Take 2,000 Units by mouth once daily ??? vitamin E (TOCOPHERYL) 400 UNIT tablet Take 400 Units by mouth once daily ??? CHERATUSSIN AC 100-10 MG/5ML syrup No [...] of education: 12 Occupational History ??? [employer] Social History Main Topics ??? Smoking status: [...] Normal OBJECTIVE: WDWN, Alert, No Distress BP 102/68 (BP SITE: LEFT ARM, BP POSITION: SITTING, BP CUFF SIZE: Adult) Pulse 81 Temp 97.9 ??F (Oral) Resp 16 Ht 1.702 m (5' 7 ) Wt 75.7 kg (166 lb 12.8 oz) SpO2 97% BMI 26.12 kg/m2 PHYSICAL EXAM: BP 102/68 (BP SITE: LEFT ARM, BP POSITION: SITTING, BP CUFF SIZE: Adult) Pulse 81 Temp 97.9 ??F (Oral) Resp 16 Ht 1.702 m (5' 7 ) Wt 75.7 kg (166 lb 12.8 oz) SpO2 97% BMI 26.12 kg/m2 General appearance: alert, cooperative, no distress [...] Recent Results (from the past 1344 hour(s)) HEMOGLOBIN A1C Collection Time: 04/19/17 7:11 AM Result Value Ref Range Hgb A1c 5.7 (H) <5.7 % of total Hgb LIPID PROFILE Collection Time: 04/19/17 7:11 AM Result Value Ref Range Cholesterol 181 125 - 200 mg/dL Chol HDL 50 > OR = 40 mg/dL Triglycerides 96 <150 mg/dL LDL Calc 112 <130 mg/dL (calc) CHOL/HDLC RATIO 3.6 < OR = 5.0 (calc) Non HDL Cholesterol 131 mg/dL (calc) TSH Collection Time: 04/19/17 7:11 AM Result Value Ref Range TSH 1.80 0.40 - 4.50 mIU/L T4 FREE Collection Time: 04/19/17 7:11 AM Result Value Ref Range T4 FREE 1.1 0.8 - 1.8 ng/dL URIC ACID BLOOD Collection Time: 04/19/17 7:11 AM Result Value Ref Range Uric Acid 7.0 4.0 - 8.0 mg/dL CBC W AUTO DIFFERENTIAL Collection Time: 04/19/17 7:13 AM Result Value Ref Range White Blood Cell Count 4.9 3.8 - 10.8 Thousand/uL RBC 4.89 4.20 - 5.80 Million/uL Hgb 15.0 13.2 - 17.1 g/dL Hct 44.6 38.5 - 50.0 % MCV 91.2 80.0 - 100.0 fL MCH 30.7 27.0 - 33.0 pg MCHC 33.6 32.0 - 36.0 g/dL RDW 13.1 11.0 - 15.0 % Plt Ct 261 140 - 400 Thousand/uL MPV 10.1 7.5 - 12.5 fL Absolute Neutrophils 2401 1500 - 7800 cells/uL Absolute Lymphocytes 1808 850 - 3900 cells/uL Absolute Monocytes 573 200 - 950 cells/uL Absolute Eosinophils 59 15 - 500 cells/uL Absolute Basophils 59 0 - 200 cells/uL Gran 49 % Lymph 36.9 % [place] 11.7 % Eos 1.2 % Baso 1.2 % COMPREHENSIVE METABOLIC PANEL Collection Time: 04/19/17 7:13 AM Result Value Ref Range Glucose 99 65 - 99 mg/dL BUN 16 7 - 25 mg/dL Creatinine 0.80 0.70 - 1.25 mg/dL eGFR MDRD 96 > OR = 60 mL/min/1.73m2 eGFR MDRD AFR AMR 111 > OR = 60 mL/min/1.73m2 BUN/Creat NOT APPLICABLE 6 - 22 (calc) Sodium 139 135 - 146 mmol/L Potassium 4.7 3.5 - 5.3 mmol/L Chloride 105 98 - 110 mmol/L CO2 27 20 - 31 mmol/L Calcium 9.2 8.6 - 10.3 mg/dL Protein Total 7.3 6.1 - 8.1 g/dL Albumin 4.5 3.6 - 5.1 g/dL Globulin Total 2.8 1.9 - 3.7 g/dL (calc) Alb/Glob Ratio 1.6 1.0 - 2.5 (calc) Bili Total 0.7 0.2 - 1.2 mg/dL Alk Phos 43 40 - 115 U/L AST/SGOT 14 10 - 35 U/L ALT/SGPT 16 9 - 46 U/L ASSESSMENT: ICD-10-CM 1. Annual physical exam Z00.00 CBC W AUTO DIFFERENTIAL COMPREHENSIVE METABOLIC PANEL HEMOGLOBIN A1C LIPID PROFILE PROSTATE SPECIFIC ANTIGEN SCREEN URIC ACID BLOOD TSH T4 FREE 2. Mixed hyperlipidemia E78.2 CBC W AUTO DIFFERENTIAL COMPREHENSIVE METABOLIC PANEL HEMOGLOBIN A1C LIPID PROFILE PROSTATE SPECIFIC ANTIGEN SCREEN URIC ACID BLOOD TSH T4 FREE 3. Cigarette nicotine dependence without complication F17.210 CBC W AUTO DIFFERENTIAL COMPREHENSIVE METABOLIC PANEL HEMOGLOBIN A1C LIPID PROFILE PROSTATE SPECIFIC ANTIGEN SCREEN URIC ACID BLOOD TSH T4 FREE 4. Special screening for malignant neoplasm of prostate Z12.5 CBC W AUTO DIFFERENTIAL COMPREHENSIVE METABOLIC PANEL HEMOGLOBIN A1C LIPID PROFILE PROSTATE SPECIFIC ANTIGEN SCREEN URIC ACID BLOOD TSH T4 FREE 5. High risk medications (not anticoagulants) long-term use Z79.899 CBC W AUTO DIFFERENTIAL COMPREHENSIVE METABOLIC PANEL HEMOGLOBIN A1C LIPID PROFILE PROSTATE SPECIFIC ANTIGEN SCREEN URIC ACID BLOOD TSH T4 FREE 6. RANDY on CPAP G47.33 CBC W AUTO DIFFERENTIAL Z99.89 COMPREHENSIVE METABOLIC PANEL HEMOGLOBIN A1C LIPID PROFILE PROSTATE SPECIFIC ANTIGEN SCREEN URIC ACID BLOOD TSH T4 FREE PLAN: Orders Placed This Encounter ??? CBC W AUTO DIFFERENTIAL ??? COMPREHENSIVE METABOLIC PANEL ??? HEMOGLOBIN A1C ??? LIPID PROFILE ??? PROSTATE SPECIFIC ANTIGEN SCREEN ??? URIC ACID BLOOD ??? TSH ??? T4 FREE Return in about 1 year (around 04/26/2018). RECENT COMPREHENSIVE SET OF LABS INCLUDING CBC, CMP, FBS ETC WERE ALL REVIEWED, DEVIATION FROM NORMAL NOTED, QUESTIONS, CONCERNS WERE ADDRESSED . USE OF CURRENT PRESCRIPTION MEDICATIONS, IT'S MANAGEMENT AND IMPACT ON PATIENT'S HEALTH DISCUSSED. 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 Yosvany Gonsalez MD documented in this encounter Plan of Treatment Not on file documented as of this encounter Visit Diagnoses Diagnosis Annual physical exam- Primary Routine general medical examination at a health care facility Mixed hyperlipidemia Cigarette nicotine dependence without complication Tobacco use disorder Special screening for malignant neoplasm of prostate High risk medications (not anticoagulants) long-term use Encounter for long-term (current) use of other medications RANDY on CPAP Obstructive sleep apnea (adult) (pediatric) documented in this encounter Care Teams Cmm Operator Relationship Specialty Start Date End Date Yosvany Gonsalez MD [address] [place] [phone] PCP - General Internal Medicine 04/08/13 09/03/19 documented as of this encounter
--- OUTSIDE RECORDS SUMMARY | 2024-11-02 07:30 | XMS_ITS | Encounter Summary ---
Author Organization [facility] Address [address] [place] [address] Care Team Providers Care Forensic Audit Expert Name Role Phone Yosvany Gonsalez MD Primary Care Provider [phone] Reason for Visit * Reason Onset Date Comments MEDICATION REFILL 12/17/2015 Encounter Details Date Type Department Care Team (Late st Contact Info) Description 12/17/2015 Refill [facility] - Family Medicine [address] [place] [phone] Yosvany Gonsalez MD [address] [place] [phone] MEDICATION REFILL Social History Tobacco Use Types [...] Telephone Encounter - Sarai Richmond RN - 12/17/2015 12:38 PM CST is calling to ask us to send a script for Pantoprazole to the [facility].I first read the note and told her it was undergoing a prior authorization then she said he had gotten the approval in the mail and needed the script but hadn't heard from us.I sent a years worth oif the drug to [facility] at the wifes request. TEGIC PLANNING ANALYST documented in this encounter Plan of Treatment Not on file documented as of this encounter Visit Diagnoses Not on filedocumented in this encounter Care Teams Forensic Audit Expert Relationship Specialty Start Date End Date Yosvany Gonsalez MD [address] [phone] PCP - General Internal Medicine 04/08/13 09/03/19 documented as of this encounter
--- OUTSIDE RECORDS SUMMARY | 2024-11-02 07:30 | XMS_ITS | Encounter Summary ---
Author Organization [facility] Address [address] [place] [address] Care Team Providers Care Toll Line Mechanic Name Role Phone Yosvany Gonsalez MD Primary Care Provider [phone] Reason for Visit * Reason Onset Date Comments Refill Request 12/30/2016 Encounter Details Date Type Department Care Team (Late st Contact Info) Description 12/30/2016 Telephone [facility] - Family Medicine [address] [phone] Yosvany Gonsalez MD [address] [place] [address] [place] [address] Refill Request Social History Tobacco Use Types [...] Telephone Encounter - Sarai Richmond RN - 12/30/2016 11:26 AM CST calling to ask where the medication was sent yesterday.Looks as if it was sent to [facility].She is requesting mail order.I will cancel the script at [facility] and send to [facility].Done. ROAD MAN documented in this encounter Plan of Treatment Not on file documented as of this encounter Visit Diagnoses Not on filedocumented in this encounter Care Teams Toll Line Mechanic Relationship Specialty Start Date End Date Yosvany Gonsalez MD [address] [place] [phone] PCP - General Internal Medicine 04/08/13 09/03/19 documented as of this encounter
--- OUTSIDE RECORDS SUMMARY | 2024-11-02 07:30 | XMS_ITS | Encounter Summary ---
Author Organization [facility] Address [address] [place] [address] Care Team Providers Care Wood Crafter Name Role Phone Yosvany Gonsalez MD Primary Care Provider [phone] Reason for Visit * Reason Onset Date Comments Request Lab Order 04/18/2017 Encounter Details Date Type Department Care Team (Late st Contact Info) Description 04/18/2017 Telephone [facility] Medical [facility] - Family Medicine [address] [place] [phone] Yosvany Gonsalez MD [address] [place] [address] Request Lab Order Social History Tobacco Use Types Packs/Day Years [...] Telephone Encounter - Wilma Lomeli LPN - 04/18/2017 2:39 PM CDT Gave to CARO Ray - patient will citrus picker 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 * Telephone Encounter - Yosvany Gonsalez MD - 04/18/2017 1:51 PM CDT [facility]dered for [facility] * Telephone Encounter - Wilma Lomeli LPN - 04/18/2017 1:37 PM CDT Patient message: Patient is requesting to citrus picker lab orders today after 4 pm. They need to go to [facility]; please advise. ?? Pt appt on the . [facility] orders PLEASE * Telephone Encounter - Olga Lidia Giles - 04/18/2017 1:32 PM CDT Patient is requesting to citrus picker lab orders today after 4 pm. They need to go to [facility]; please advise. documented in this encounter Plan of Treatment Not on file documented as of this encounter Procedures Procedure Name Priority Date/Time Associated Diagnosis Comments CBC W AUTO DIFFERENTIAL Routine 04/19/2017 7:13 AM CDT Mixed hyperlipidemia Cigarette nicotine dependence without complication Special screening for malignant neoplasm of prostate High risk medications (not anticoagulants) long-term use RANDY on CPAP COMPREHENSIVE METABOLIC PANEL Routine 04/19/2017 7:13 AM CDT Mixed hyperlipidemia Cigarette nicotine dependence without complication Special screening for malignant neoplasm of prostate High risk medications (not anticoagulants) long-term use RANDY on CPAP URIC ACID BLOOD Routine 04/19/2017 7:11 AM CDT Mixed hyperlipidemia Cigarette nicotine dependence without complication Special screening for malignant neoplasm of prostate High risk medications (not anticoagulants) long-term use RANDY on CPAP HEMOGLOBIN A1C Routine 04/19/2017 7:11 AM CDT Mixed hyperlipidemia Cigarette nicotine dependence without complication Special screening for malignant neoplasm of prostate High risk medications (not anticoagulants) long-term use RANDY on CPAP TSH Routine 04/19/2017 7:11 AM CDT Mixed hyperlipidemia Cigarette nicotine dependence without complication Special screening for malignant neoplasm of prostate High risk medications (not anticoagulants) long-term use RANDY on CPAP T4 FREE Routine 04/19/2017 7:11 AM CDT Mixed hyperlipidemia Cigarette nicotine dependence without complication Special screening for malignant neoplasm of prostate High risk medications (not anticoagulants) long-term use RANDY on CPAP LIPID PROFILE Routine 04/19/2017 7:11 AM CDT Mixed hyperlipidemia Cigarette nicotine dependence without complication Special screening for malignant neoplasm of prostate High risk medications (not anticoagulants) long-term use RANDY on CPAP documented in this encounter Results * COMPREHENSIVE METABOLIC PANEL (04/19/2017 7:13 AM CDT) Glucose 99 65 - 99 mg/dL [facility] Comment: ? Fasting reference interval BUN 16 7 - 25 mg/dL [facility] Creatinine 0.80 0.70 - 1.25 mg/dL [facility] Comment: For patients >49 years of age, the reference limit for Creatinine is approximately 13% higher for people identified as -Nauruan. eGFR by MDRD 96 > OR = 60 mL/min/1 .73m2 [facility] eGFR by MDRD 111 > OR = 60 mL/min/1 .73m2 [facility] BUN/Creatinine Ratio NOT APPLICABLE 6 - 22 (calc) [facility] Sodium 139 135 - 146 mmol/L [facility] Potassium 4.7 3.5 - 5.3 mmol/L [facility] Chloride 105 98 - 110 mmol/L [facility] CO2 27 20 - 31 mmol/L [facility] Calcium 9.2 8.6 - 10.3 mg/dL [facility] Protein Total 7.3 6.1 - 8.1 g/dL [facility] Albumin 4.5 3.6 - 5.1 g/dL [facility] Globulin Total 2.8 1.9 - 3.7 g/dL (calc) [facility] Albumin/Globulin Ratio 1.6 1.0 - 2.5 (calc) [facility] Bilirubin Total 0.7 0.2 - 1.2 mg/dL [facility] Alkaline Phosphatase 43 40 - 115 U/L [facility] AST 14 10 - 35 U/L [facility] ALT 16 9 - 46 U/L [facility] Comment: Test Performed at: [facility] [employer] [id number] [place] [address] ??[phone] MICHEL LEO DO,MPH Blood BLOOD SPECIMEN / Unknown 04/19/2017 7:13 AM CDT 04/19/2017 7:14 AM CDT Yosvany Gonsalez MD LAB - CHEMISTRY VIVIANA ADAMS Performing Organization Address [facility] Co de Phone Number [facility] [address] [place] [address] * CBC W AUTO DIFFERENTIAL (04/19/2017 7:13 AM CDT) Pathologist [facility] White Blood Cell Count 4.9 3.8 - 10.8 Thousand/u L [facility] RBC 4.89 4.20 - 5.80 Million/uL [facility] Hemoglobin 15.0 13.2 - 17.1 g/dL [facility] Hematocrit 44.6 38.5 - 50.0 % [facility] MCV 91.2 80.0 - 100.0 fL [facility] MCH 30.7 27.0 - 33.0 pg [facility] MCHC 33.6 32.0 - 36.0 g/dL [facility] RDW 13.1 11.0 - 15.0 % [facility] Platelet Count 261 140 - 400 Thousand/u L [facility] MPV 10.1 7.5 - 12.5 fL [facility] Neutrophil Absolute 2401 1500 - 7800 cells/uL [facility] Lymphocytes Absolute 1808 850 - 3900 cells/uL [facility] Absolute Monocytes 573 200 - 950 cells/uL [facility] Eosinophils Absolute 59 15 - 500 cells/uL [facility] Basophils Absolute 59 0 - 200 cells/uL [facility] Granulocytes % 49 % [facility] Lymphocytes % 36.9 % [facility] Monocytes % 11.7 % [facility] Eosinophils % 1.2 % [facility] Basophils % 1.2 % [facility] Comment: Test Performed at: [employer] [place], [place] ??[phone] MICHEL LEO DO,MPH Blood BLOOD SPECIMEN / Unknown 04/19/2017 7:13 AM CDT 04/19/2017 7:14 AM CDT Yosvany Gonsalez MD LAB - HEMATOLOGY KEILA ALVARADO Performing Organization Address [facility] Co de Phone Number [facility] [address] [place] [phone] * URIC ACID BLOOD (04/19/2017 7:11 AM CDT) [facility] Uric Acid 7.0 4.0 - 8.0 mg/dL [facility] Comment: Therapeutic target for gout patients: <6.0 mg/dL ?? Test Performed at: [employer] [place], [place] ??[phone] MICHEL LEO DO,MPH Blood BLOOD SPECIMEN / Unknown 04/19/2017 7:11 AM CDT 04/19/2017 7:12 AM CDT Yosvany [facility] - CHEMISTRY VIVIANA ADAMS Performing Organization Address [facility] Co de Phone Number [facility] [phone] [place], [place] [id number] * T4 FREE (04/19/2017 7:11 AM CDT) T4 Free 1.1 0.8 - 1.8 ng/dL [facility] Comment: Test Performed at: [employer] [place], [place] ??[phone] MICHEL LEO DO,MPH Blood BLOOD SPECIMEN / Unknown 04/19/2017 7:11 AM CDT 04/19/2017 7:12 AM CDT Yosvany A [place] [facility] - CHEMISTRY VIVIANA ADAMS Performing Organization Address [facility] Co de Phone Number [facility] [phone] [place] [address] * TSH (04/19/2017 7:11 AM CDT) Pathologist [facility] TSH 1.80 0.40 - 4.50 mIU/L [facility] Comment: Test Performed at: [employer] [place], [place] ??[phone] MICHEL LEO DO,MPH Blood BLOOD SPECIMEN / Unknown 04/19/2017 7:11 AM CDT 04/19/2017 7:12 AM CDT Yosvany [facility] [place] [facility] - CHEMISTRY VIVIANA ADAMS Performing Organization Address [facility] Co de Phone Number [facility] [phone] [place] [address] * LIPID PROFILE (04/19/2017 7:11 AM CDT) Cholesterol 181 125 - 200 mg/dL [facility] Comment: Test Performed at: [employer] [place], [place] ??[phone] MICHEL LEO DO,MPH HDL Cholesterol 50 > OR = 40 mg/dL [facility] Triglycerides 96 <150 mg/dL [facility] LDL Calculated 112 <130 mg/dL (calc) [facility] Comment: Desirable range <100 mg/dL for patients with CHD or diabetes and <70 mg/dL for diabetic patients with known heart disease. CHOL/HDLC RATIO 3.6 < OR = 5.0 (calc) [facility] Non HDL Cholesterol 131 mg/dL (calc) [facility] Comment: Target for non-HDL cholesterol is 30 mg/dL higher than LDL cholesterol target. Blood BLOOD SPECIMEN / Unknown 04/19/2017 7:11 AM CDT 04/19/2017 7:12 AM CDT Yosvany Gonsalez MD LAB - CHEMISTRY VIVIANA ADAMS Performing Organization Address [facility] Co de Phone Number [facility] [phone] [place] [address] * (ABNORMAL) HEMOGLOBIN A1C (04/19/2017 7:11 AM CDT) Hemoglobin A1c 5.7(H) <5.7 % of total Hgb [facility] Comment: For someone without known diabetes, a hemoglobin A1c value between 5.7% and 6.4% is consistent with prediabetes and should be confirmed with a follow-up test. For someone with known diabetes, a value <7% indicates that their diabetes is well controlled. A1c targets should be individualized based on duration of diabetes, age, comorbid conditions, and other considerations. This assay result is consistent with an increased risk of diabetes. Currently, no consensus exists regarding use of hemoglobin A1c for diagnosis of diabetes for children. Test Performed at: [employer] [address] [place], [place] ??[phone] MICHEL LEO DO,MPH Whole Blood BLOOD SPECIMEN WITH EDTA / Unknown 04/19/2017 7:11 AM CDT 04/19/2017 7:12 AM CDT Yosvany Gonsalez MD LAB - CHEMISTRY VIVIANA ADAMS Performing Organization Address [facility] Co de Phone Number [facility] [phone] [place] [address] documented in this encounter Visit Diagnoses Diagnosis Mixed hyperlipidemia Cigarette nicotine dependence without complication Tobacco use disorder Special screening for malignant neoplasm of prostate High risk medications (not anticoagulants) long-term use Encounter for long-term (current) use of other medications RANDY on CPAP Obstructive sleep apnea (adult) (pediatric) documented in this encounter Care Teams Wood Crafter Relationship Specialty Start Date End Date Yosvany Gonsalez MD [address] [phone] PCP - General Internal Medicine 04/08/13 09/03/19 documented as of this encounter
--- OUTSIDE RECORDS SUMMARY | 2024-11-02 07:30 | XMS_ITS | Encounter Summary ---
Author Organization [facility] Address [address] [address] Care Team Providers Care Poultry Farm Manager Name Role Phone Yosvany Gonsalez MD Primary Care Provider [phone] Reason for Visit * Reason Comments Refill Request Encounter Details Date Type Department Care Team (Late st Contact Info) Description 10/19/2017 Refill [facility] Medical [facility] - Family Medicine [address] [phone] Yosvany Gonsalez MD [address] [place] [address] Refill Request Social History Tobacco [...] Telephone Encounter - Sarai Richmond RN - 10/19/2017 9:[address] Gonsalez for RF. BUILDER documented in this encounter Plan of Treatment Not on file documented as of this encounter Visit Diagnoses Not on filedocumented in this encounter Care Teams Poultry Farm Manager Relationship Specialty Start Date End Date Yosvany Gonsalez MD [address] [place] [phone] PCP - General Internal Medicine 04/08/13 09/03/19 documented as of this encounter
--- OUTSIDE RECORDS SUMMARY | 2024-11-02 07:30 | XMS_ITS | Encounter Summary ---
Author Organization [facility] Address [address] [place] [address] Care Team Providers Care Manager Front Name Role Phone Yosvany Gonsalez MD Primary Care Provider [phone] Reason for Visit * Reason Onset Date Comments Question 03/13/2017 Encounter Details Date Type Department Care Team (Late st Contact Info) Description 03/13/2017 Telephone [facility] Medical [facility] - Family Medicine [address] [address] Yosvany Gonsalez MD [address] [place] [address] Question Social History Tobacco Use [...] Telephone Encounter - Sarai Richmond RN - 03/14/2017 2:22 PM CDT Spoke to his and had a long discussion about the fish oil but more importantly,about the smoking.She knows he should stop and he has tried.She will discuss with him further. * Telephone Encounter - Sarai Richmond RN - 03/14/2017 1:40 PM CDT Called to discuss but had to LMOM for them to call me back. * Telephone Encounter - Sarai Richmond RN - 03/13/2017 4:30 PM CDT calling to say Dr told him to take Fish Oil 600mg and something else.I will discuss with dr Gonsalez. documented in this encounter Plan of Treatment Not on file documented as of this encounter Visit Diagnoses Not on filedocumented in this encounter Care Teams Manager Front Relationship Specialty Start Date End Date Yosvany Gonsalez MD [address] [place] [phone] PCP - General Internal Medicine 04/08/13 09/03/19 documented as of this encounter
--- OUTSIDE RECORDS SUMMARY | 2024-11-02 07:30 | XMS_ITS | Encounter Summary ---
Author Organization [facility] Address [address] [place] [address] Care Team Providers Care Distresser Name Role Phone Yosvany Gonsalez MD Primary Care Provider [phone] Reason for Visit * Reason Onset Date Comments Vaccine Question 08/02/2017 Encounter Details Date Type Department Care Team (Late st Contact Info) Description 08/02/2017 Telephone [facility] Medical [facility] - Family Medicine [address] [phone] Yosvany Gonsalez MD [address] [address] Vaccine Question Social History Tobacco Use Types Packs/Day [...] Telephone Encounter - Wilma Lomeli LPN - 08/03/2017 8:47 AM CDT Per patient's 's request. Mailing the script to their house. * Telephone Encounter - Yosvany Gonsalez MD - 08/02/2017 6:27 PM CDT done * Telephone Encounter - Wilma Lomeli LPN - 08/02/2017 3:07 PM CDT Patient needs prevnar 23. He has already have prevnar 13. Please advise. documented in this encounter Plan of Treatment Not on file documented as of this encounter Visit Diagnoses Not on filedocumented in this encounter Care Teams Distresser Relationship Specialty Start Date End Date Yosvany Gonsalez MD [address] [place] [phone] PCP - General Internal Medicine 04/08/13 09/03/19 documented as of this encounter
--- OUTSIDE RECORDS SUMMARY | 2024-11-02 07:30 | XMS_ITS | Encounter Summary ---
Author Organization [facility] Address [address] [place] [address] Care Team Providers Care Director Automotive Name Role Phone Yosvany Gonsalez MD Primary Care Provider [phone] Reason for Visit * Reason Comments Comprehensive Chronic Disease Evaluation pre-op clearance for knee surgery. Voices no other pain or concerns. Pain Knee Medication Check Medical Clearance Encounter Details Date Type Department Care Team (Latest Contact Info) Description 08/29/2016 11:00 AM CDT Office Visit [facility] Medical [facility] - Family Medicine [address] [place] [address], [place] [address] Yosvany Gonsalez MD [address] [place] [address] Pre-operative clearance (Primary Dx); Mixed hyperlipidemia; Cigarette nicotine dependence without complication; High risk medications (not anticoagulants) long-term use; RANDY on CPAP; Primary osteoarthritis of left knee Social History Tobacco Use Types Packs/Day Years [...] Sign Reading Time Taken Comments Blood Pressure 144/83 08/29/2016 11:23 AM CDT Pulse 103 08/29/2016 11:23 AM CDT Temperature 36.2 ??C (97.2 ??F) 08/29/2016 11:23 AM C DT Respiratory Rate 18 08/29/2016 11:23 AM CDT Oxygen Saturation 95% 08/29/2016 11:23 AM CDT Inhaled Oxygen Concentration - - Weight 78.7 kg (173 lb 6.4 oz) 08/29/2016 11:23 AM CDT Height 170.2 cm (5' 7 ) 08/29/2016 11:23 AM CDT Body Mass Index 27.16 08/29/2016 11:23 AM CDT documented in this encounter Progress Notes * Yosvany Gonsalez MD - 08/29/2016 1:22 PM CDT Date: 08/29/2016 Pt Name: Natan Patel : 1955 AGE: 61 y.o. SEX: male SUBJECTIVE: Chief Complaint Patient presents with ??? Comprehensive Chronic Disease Evaluation pre-op clearance for knee surgery. Voices no other pain or concerns. ??? Pain Knee ??? Medication Check ??? Medical Clearance History of Present Illness: Medical clearance requested for anticipated surgery in the left knee. All modalities have failed patient scheduled for surgery. Heart rate and blood pressure stable, no complaints of chest pain, chest tightness, palpitations, shortness of breath or dizziness. Functional status at baseline. High cholesterol on medications doing well. Severe acid reflux on medications and lifestyle measures doing well. ACTIVE, PAIN CONTROL ADEQUATE, COPING WITH STRESSORS [...] 81 mg by mouth once daily ??? Robson-3 Fatty Acids (FISH OIL) 1000 MG capsule [...] ALLERGY, PM,FSH REVIEWED AND EXTRAPOLATED FROM EPIC No Known Allergies Past Medical History Diagnosis [...] of education: 12 Occupational History ??? [employer] Social History Main Topics ??? Smoking status: Current Every Day Smoker Packs/day: 0.25 Types: Cigarettes ??? Smokeless [...] Normal OBJECTIVE: WDWN, Alert, No Distress BP 144/83 (BP SITE: LEFT ARM, BP POSITION: SITTING, BP CUFF SIZE: Adult) Pulse 103 Temp 97.2 ??F (Oral) Resp 18 Wt 78.7 kg (173 lb 6.4 oz) BMI 27.16 kg/m2 PHYSICAL EXAM: BP 144/83 (BP SITE: LEFT ARM, BP POSITION: SITTING, BP CUFF SIZE: Adult) Pulse 103 Temp 97.2 ??F (Oral) Resp 18 Wt 78.7 kg (173 lb 6.4 oz) BMI 27.16 kg/m2 General appearance: alert, cooperative, no distress [...] clearance Z01.818 2. Mixed hyperlipidemia E78.2 3. Cigarette nicotine dependence without complication F17.210 4. High risk medications (not anticoagulants) long-term use Z79.899 5. RANDY on CPAP G47.33 6. Primary osteoarthritis of left knee M17.12 ORTHOPEDICS REFERRAL PLAN: Orders Placed This Encounter ??? ORTHOPEDICS REFERRAL Return if symptoms worsen or fail to [...] CLEARLY WANTS TO PROCEED Yosvany Gonsalez MD documented in this encounter Plan of Treatment Not on file documented as of this encounter Visit Diagnoses Diagnosis Pre-operative clearance- Primary Preoperative examination, unspecified Mixed hyperlipidemia Cigarette nicotine dependence without complication Tobacco use disorder High risk medications (not anticoagulants) long-term use Encounter for long-term (current) use of other medications RANDY on CPAP Obstructive sleep apnea (adult) (pediatric) Primary osteoarthritis of left knee Primary localized osteoarthrosis, lower leg documented in this encounter Care Teams Director Automotive Relationship Specialty Start Date End Date Yosvany Gonsalez MD [address] [phone] PCP - General Internal Medicine 04/08/13 09/03/19 documented as of this encounter
--- OUTSIDE RECORDS SUMMARY | 2024-11-02 07:30 | XMS_ITS | Encounter Summary ---
Author Organization [facility] Address [address] [place] [address] Care Team Providers Care Bobj Developer Name Role Phone Yosvany Gonsalez MD Primary Care Provider [phone] Reason for Visit * Reason Comments Refill Request Encounter Details Date Type Department Care Team (Late st Contact Info) Description 11/02/2016 Refill [facility] Medical [facility] - Family Medicine [address] [place] [phone] Yosvany Gonsalez MD [address] [place] [address] Refill Request Social History Tobacco [...] Telephone Encounter - Sarai Richmond RN - 11/02/2016 3:[address] Gonsalez for RF. ERN AND CHAIN MAKER documented in this encounter Plan of Treatment Not on file documented as of this encounter Visit Diagnoses Not on filedocumented in this encounter Care Teams Bobj Developer Relationship Specialty Start Date End Date Yosvany Gonsalez MD [address] [place] [phone] PCP - General Internal Medicine 04/08/13 09/03/19 documented as of this encounter
--- OUTSIDE RECORDS SUMMARY | 2024-11-02 07:30 | XMS_ITS | Encounter Summary ---
Author Organization [facility] Address [address] [place] [address] Care Team Providers Care Senior Data Warehouse Architect Name Role Phone Yosvany Gonsalez MD Primary Care Provider [phone] Reason for Visit * Reason Comments Complete Physical Exam annual Encounter Details Date Type Department Care Team (Latest Contact Info) Description 10/19/2016 3:30 PM FOUNDER / CEO Office Visit [facility] - [facility] Medicine [address], [place] [address] Yosvany Gonsalez MD [address] [place] [address] [place] [address] RANDY on CPAP (Primary Dx); Need for prophylactic vaccination and inoculation against influenza; Mixed hyperlipidemia; Cigarette nicotine dependence without complication; High risk medications (not anticoagulants) long-term use; Other chronic gastritis without hemorrhage; Primary osteoarthritis of left knee Social History Tobacco Use Types Packs/Day Years Used Date Smoking Tobacco: Light Smoker Cigarettes Smokeless Tobacco: Never Tobacco Cessation:Ready to Q uit: No; Counseling Given: Yes Alcohol Use Standard Drinks/Week Comments Yes 5 (1 standard drink = 0.6 oz pur e alcohol) Sex and Gender Information Value Date Recorded Sex Assigned at Not on file Gender Identity Not on file Sexual Orientation Not on file documented as of this encounter Last Filed Vital Signs Vital Sign Reading Time Taken Comments Blood Pressure 130/66 10/19/2016 4:19 PM FOUNDER / CEO Pulse 85 10/19/2016 4:19 PM FOUNDER / CEO Temperature 36.6 ??C (97.9 ??F) 10/19/2016 4:19 PM CS T Respiratory Rate 16 10/19/2016 4:19 PM FOUNDER / CEO Oxygen Saturation 99% 10/19/2016 4:19 PM FOUNDER / CEO Inhaled Oxygen Concentration - - Weight 79 kg (174 lb 3.2 oz) 10/19/2016 4:19 PM FOUNDER / CEO Height 170.2 cm (5' 7 ) 10/19/2016 4:19 PM FOUNDER / CEO Body Mass Index 27.28 10/19/2016 4:19 PM FOUNDER / CEO documented in this encounter Progress Notes * Yosvany Gonsalez MD - 10/19/2016 6:14 PM CST Date: 10/19/2016 Pt Name: Natan Patel : 1955 AGE: 61 y.o. SEX: male SUBJECTIVE: Chief Complaint Patient presents with ??? Comprehensive Chronic Disease Evaluation ??? Medication Check ??? Hyperlipidemia lab results History of Present Illness: Patient is here with several issues. Obstructive sleep apnea on CPAP with good compliance, impact on lifestyle excellent. Hyperlipidemia on statins diet doing well. Severe DJD knee, looking into options including knee replacement. Continued tobacco abuse, reenforced directions, patient working hard on quitting completely. ACTIVE, PAIN CONTROL ADEQUATE, COPING WITH STRESSORS WELL. FATIGUE STABLE. NO SIGNIFICANT CHANGE INWEIGHT, NO RECENT ISSUES WITH FEVER, CHILLS. ALL MEDICATIONS WITH INSTRUCTIONS REVIEWED AT TODAY'S VISIT Current Outpatient Prescriptions Medication Sig Dispense Refill ??? pneumococcal 13-Tita Conj (PREVNAR 13) vaccine Inject 0.5 mL into muscle once for 1 dose 0.5 mL 0 ??? pantoprazole EC (PROTONIX) 40 MG tablet Take 1 Tab by mouth once daily 90 Tab 3 ??? ezetimibe-simvastatin (VYTORIN) 10-10 MG tablet Take 1 Tab by mouth once daily 90 Tab 3 ??? aspirin (ASPIRIN) 81 MG chew tablet Take 81 mg by mouth once daily ??? [place]-3 Fatty Acids (FISH OIL) 1000 MG capsule [...] of education: 12 Occupational History ??? [employer] Social History Main Topics ??? [...] Normal OBJECTIVE: WDWN, Alert, No Distress BP 130/66 (BP SITE: LEFT ARM, BP POSITION: SITTING, BP CUFF SIZE: Adult) Pulse 85 Temp 97.9 ??F (Oral) Resp 16 Wt 79 kg (174 lb 3.2 oz) BMI 27.28 kg/m2 PHYSICAL EXAM: BP 130/66 (BP SITE: LEFT ARM, BP POSITION: SITTING, BP CUFF SIZE: Adult) Pulse 85 Temp 97.9 ??F (Oral) Resp 16 Wt 79 kg (174 lb 3.2 oz) BMI 27.28 kg/m2 General appearance: alert, cooperative, [...] past 1344 hour(s)) LIPID PROFILE Collection Time: 10/11/16 8:11 AM Result Value Ref Range Cholesterol 158 125 - 200 mg/dL Chol HDL 54 > OR = 40 mg/dL Triglycerides 80 <150 mg/dL LDL Calc 88 <130 mg/dL (calc) CHOL/HDLC RATIO 2.9 < OR = 5.0 (calc) Non HDL Cholesterol 104 mg/dL (calc) URIC ACID BLOOD Collection Time: 10/11/16 8:11 AM Result Value Ref Range Uric Acid 5.8 4.0 - 8.0 mg/dL COMPREHENSIVE METABOLIC PANEL Collection Time: 10/11/16 8:11 AM Result Value Ref Range Glucose 97 65 - 99 mg/dL BUN 17 7 - 25 mg/dL Creatinine 0.80 0.70 - 1.25 mg/dL eGFR MDRD 96 > OR = 60 mL/min/1.73m2 eGFR MDRD AFR AMR 111 > OR = 60 mL/min/1.73m2 BUN/Creat NOT APPLICABLE 6 - 22 (calc) Sodium 142 135 - 146 mmol/L Potassium 4.6 3.5 - 5.3 mmol/L Chloride 107 98 - 110 mmol/L CO2 30 20 - 31 mmol/L Calcium 9.2 8.6 - 10.3 mg/dL Protein Total 7.2 6.1 - 8.1 g/dL Albumin 4.4 3.6 - 5.1 g/dL Globulin Total 2.8 1.9 - 3.7 g/dL (calc) Alb/Glob Ratio 1.6 1.0 - 2.5 (calc) Bili Total 0.8 0.2 - 1.2 mg/dL Alk Phos 41 40 - 115 U/L AST/SGOT 15 10 - 35 U/L ALT/SGPT 19 9 - 46 U/L CBC W AUTO DIFFERENTIAL Collection Time: 10/11/16 8:11 AM Result Value Ref Range White Blood Cell Count 5.2 3.8 - 10.8 Thousand/uL RBC 4.48 4.20 - 5.80 Million/uL Hgb 14.3 13.2 - 17.1 g/dL Hct 43.1 38.5 - 50.0 % MCV 96.3 80.0 - 100.0 fL MCH 32.0 27.0 - 33.0 pg MCHC 33.3 32.0 - 36.0 g/dL RDW 14.7 11.0 - 15.0 % Plt Ct 243 140 - 400 Thousand/uL MPV 8.7 7.5 - 11.5 fL Absolute Neutrophils 2990 1500 - 7800 cells/uL Absolute Lymphocytes 1706 850 - 3900 cells/uL Absolute Monocytes 406 200 - 950 cells/uL Absolute Eosinophils 73 15 - 500 cells/uL Absolute Basophils 26 0 - 200 cells/uL Gran 57.5 % Lymph 32.8 % [place] 7.8 % Eos 1.4 % Baso 0.5 % TSH Collection Time: 10/11/16 8:11 AM Result Value Ref Range TSH 1.31 0.40 - 4.50 mIU/L PROSTATE SPECIFIC ANTIGEN SCREEN Collection Time: 10/11/16 8:11 AM Result Value Ref Range PSA 0.7 < OR = 4.0 ng/mL HEMOGLOBIN A1C Collection Time: 10/11/16 8:11 AM Result Value Ref Range Hgb A1c 5.7 (H) <5.7 % of total Hgb ASSESSMENT: ICD-10-CM 1. RANDY on CPAP G47.33 2. Need for prophylactic vaccination and inoculation against influenza Z23 FLU VAC NO PRSV 4 TITA 3 YRS PLUS 3. Mixed hyperlipidemia E78.2 4. Cigarette nicotine dependence without complication F17.210 5. High risk medications (not anticoagulants) long-term use Z79.899 6. Other chronic gastritis without hemorrhage K29.50 7. Primary osteoarthritis of left knee M17.12 PLAN: Orders Placed This Encounter ??? FLU VAC NO PRSV 4 TITA 3 YRS PLUS ??? pneumococcal 13-Tita Conj (PREVNAR 13) vaccine Return in about 6 months (around 04/19/2017). RECENT COMPREHENSIVE SET OF LABS INCLUDING CBC, CMP, FBS ETC WERE ALL REVIEWED, DEVIATION FROM NORMAL NOTED, QUESTIONS, CONCERNS WERE ADDRESSED . USE OF CURRENT PRESCRIPTION MEDICATIONS, IT'S MANAGEMENT AND IMPACT ON PATIENT'S HEALTH DISCUSSED. Yosvany Gonsalez MD DER / CEO documented in this encounter Plan of Treatment Not on file documented as of this encounter Visit Diagnoses Diagnosis RANDY on CPAP- Primary Obstructive sleep apnea (adult) (pediatric) Need for prophylactic vaccination and inoculation against influenza Mixed hyperlipidemia Cigarette nicotine dependence without complication Tobacco use disorder High risk medications (not anticoagulants) long-term use Encounter for long-term (current) use of other medications Other chronic gastritis without hemorrhage Primary osteoarthritis of left knee Primary localized osteoarthrosis, lower leg documented in this encounter Care Teams Senior Data Warehouse Architect Relationship Specialty Start Date End Date Yosvany Gonsalez MD [address] [phone] PCP - General Internal Medicine 04/08/13 09/03/19 documented as of this encounter
--- OUTSIDE RECORDS SUMMARY | 2024-11-02 07:30 | XMS_ITS | Encounter Summary ---
Author Organization [facility] Address [address] [place] [address] Care Team Providers Care Paralegal Internship Name Role Phone Yosvany Gonsalez MD Primary Care Provider [phone] Reason for Visit * Reason Comments Cough Congestion Encounter Details Date Type Department Care Team (Late st Contact Info) Description 10/28/2016 9:45 AM HERB GROWER Office Visit [facility] [address] [place] [phone] Provider1, [facility] Acute non-recurrent maxillary sinusitis (Primary Dx); Acute bronchitis, unspecified organism Social History Tobacco Use Types Packs/Day Years [...] Sign Reading Time Taken Comments Blood Pressure 128/72 10/28/2016 9:46 AM HERB GROWER Pulse 89 10/28/2016 9:46 AM HERB GROWER Temperature 36.4 ??C (97.6 ??F) 10/28/2016 9:46 AM CS T Respiratory Rate 16 10/28/2016 9:46 AM HERB GROWER Oxygen Saturation 98% 10/28/2016 9:46 AM HERB GROWER Inhaled Oxygen Concentration - - Weight 78.9 kg (174 lb) 10/28/2016 9:46 AM HERB GROWER Height 167.6 cm (5' 6 ) 10/28/2016 9:46 AM HERB GROWER Body Mass Index 28.08 10/28/2016 9:46 AM HERB GROWER documented in this encounter Patient Instructions * Patient Instructions* Praveena Knott APRN-CNP - 10/28/2016 9:56 AM HERB GROWER Images from the original note were not included. Teaching on sinusitis, bronchitis, causes and treatment of, signs and symptoms of, declines CXR, teaching on medication regime and benefit of medication, teaching on Depo Medrol injection, risk and benefits, still wants, teaching on fever/pain control, saline nasal spray, netti pot as instructed, always with sterile solution, use inhaler as directed, increase fluids, cool mist vaporizer, follow up with PCP in 1 week and prn ER if needed if increased symptoms, fever, chest or back pain, shortness of breath or any concerns. Pt acknowledged all teaching with no questions. Acute Bronchitis WHAT YOU NEED TO KNOW: What is acute bronchitis? Acute bronchitis is swelling and irritation in the air passages of your lungs. This irritation may cause you to cough or have other breathing problems. Acute bronchitis often starts because of another illness, such as a cold or the flu. The illness spreads from your nose and throat to your windpipe and airways. Bronchitis is often called a chest cold. Acute bronchitis lasts about 3 weeks and is usually not a serious illness. What causes acute bronchitis? ?? Infection caused by a virus, bacteria, or a fungus ?? Polluted air caused by chemical fumes, dust, smoke, allergens, or pollution What increases my risk for acute bronchitis? ?? Age, usually older adults ?? Smoking cigarettes or being around cigarette smoke ?? Chronic lung diseases or chronic sinus infections ?? Weakened immune system ?? Gastroesophageal reflux disease ?? Allergies and environmental changes What are the signs and symptoms of acute bronchitis? ?? A cough with sputum that may be clear, yellow, or green ?? Feeling more tired than usual, and body aches ?? A fever and chills ?? Wheezing when you breathe ?? A tight chest or pain when you breathe or cough How is acute bronchitis diagnosed? Your healthcare provider may diagnose bronchitis by your symptoms. If he is not sure, you may need the following: ?? Blood tests will be done to see if your symptoms are caused by an infection. ?? X-ray pictures of your lungs and heart may show signs of infection, such as pneumonia. Chest x-rays may also show fluid around your heart and lungs. How is acute bronchitis treated? Your healthcare provider will treat any condition that has caused your acute bronchitis. He may give antibiotics to treat an infection caused by bacteria. He may alsogive you any of the following: ?? Ibuprofen [...] you how to use your inhaler correctly. ?? An antibiotic may be given if your acute bronchitis is caused by a bacterial infection. How can I care for myself when I have acute bronchitis? ?? Get more rest. Rest helps your [...] to breathe and help decrease your cough. How can I decrease my risk for acute bronchitis? ?? Get the vaccinations you need. Ask your healthcare provider if you should get vaccinated againstthe flu or pneumonia. ?? Prevent the spread of germs. You can decrease your risk of acute bronchitis and other illnesses by doing the following: ?? Wash your hands often with soap and water. Carry germ-killing hand lotion or gel with you. You can use the lotion or gel to clean your hands when soap and water are not available. ?? Do not touch your eyes, nose, or mouth unless you have washed your hands first. ?? Always cover your mouth when you cough to prevent the spread of germs. It is best to cough into a tissue or your shirt sleeve instead of into your hand. Ask those around you cover their mouths when they cough. ?? Try to avoid people who have a cold or the flu. If you are sick, stay away from others as much as possible. When should I seek immediate care? ?? You cough up blood. ?? Your lips or fingernails turn blue. ?? You feel like you are not getting enough air when you breathe. When should I contact my healthcare provider? ?? You have a fever. ?? Your [...] treatment. The above information is an educational administration teacher only. It is not intended as medical advice for individual conditions or treatments. Talk to your doctor, nurse or pharmacist before following any medical regimen to see if it is safe and effective for you. ?? 2016 [employer]. Information is for End User's use only and may not be sold, redistributed or otherwise used for commercial purposes. All illustrations and images included in CareNotes?? are the copyrighted property of [employer]. or [employer]. Sinusitis WHAT YOU NEED TO KNOW: What is sinusitis? Sinusitis is inflammation or infection of your sinuses. It is most often caused by a virus. Acute sinusitis may last up to 12 weeks. Chronic sinusitis lasts longer than 12 weeks. Recurrent sinusitis is when you have 3 or more episodes of sinusitis in 1 year. What increases my risk for sinusitis? ?? Medical conditions, such as an upper respiratory infection, allergies, asthma, or cystic fibrosis ?? Dental infections or procedures, such as gum infections, tooth decay, tooth removal, root canal,or a tooth implant ?? Abnormal sinus structure, such as nasal growths, swollen tonsils, or a deviated septum ?? A weak immune system, from diseases such as diabetes or HIV ?? Smoking What are the signs and symptoms of sinusitis? ?? Fever ?? Pain, pressure, redness, or swelling around the forehead, cheeks, or eyes ?? Thick yellow or green discharge from your nose ?? Tenderness when you touch your face over your sinuses ?? Dry cough that happens mostly at night or when you lie down ?? Headache and face pain that is worse when you lean forward ?? Teeth pain or pain when you chew How is sinusitis diagnosed? Your healthcare provider will examine you and ask about your symptoms. He will check inside your nose using a nasal speculum. This is a small tool used to open your nostrils. A sample of the mucus from your nose may show what germ is causing your infection. If you have chronic sinusitis, you may need imaging tests. How is sinusitis treated? Your symptoms may go away on their own. You may need any of the following: [...] you take blood thinner medicine, always ask if NSAIDs are safe for you. Always read the medicine label and follow directions. Do not give these medicines to children under 6 months of age without direction from your child's healthcare provider. ?? Nasal steroid sprays may help decrease inflammation in your nose and sinuses. ?? Decongestants help reduce swelling and drain mucus in the nose and sinuses. They may help you breathe easier. ?? Antihistamines help dry mucus in the nose and relieve sneezing. How can I manage my symptoms? ?? Rinse your sinuses. Use a sinus rinse device to rinse your nasal passages with a saline (salt water) solution. This will help thin the mucus in your nose and rinse away pollen and dirt. It will also help reduce swelling so you can breathe normally. Ask your healthcare provider how often to do this. ?? Breathe in steam. Heat a bowl of water until you see steam. Lean over the bowl and make a tent over your head with a large towel. Breathe deeply for about 20 minutes. Be careful not to get too close to the steam or burn yourself. Do this 3 times a day. You can also breathe deeply when you take ahot shower. ?? Sleep with your head elevated. Place an extra pillow under your head before you go to sleep to help your sinuses drain. ?? Drink liquids as directed. Ask your healthcare provider how much liquid to drink each day and which liquids are best for you. Liquids will thin the mucus in your nose and help it drain. Avoid drinks that contain alcohol or caffeine. ?? Do not smoke, and avoid secondhand smoke. Nicotine and other chemicals in cigarettes and cigars can make your symptoms worse. Ask your healthcare provider for information if you currently smoke and need help to quit. E-cigarettes or smokeless tobacco still contain nicotine. Talk to your healthcare provider before you use these products. How can I help prevent the spread of germs that cause sinusitis? Wash your hands often with soap and water. Wash your hands after you use the bathroom, change a child's diaper, or sneeze. Wash your hands before you prepare or eat food. When should I seek immediate care? ?? Your eye and eyelid are red, swollen, and painful. ?? You cannot open your eye. ?? You have vision changes, such as double vision. ?? Your eyeball bulges out or you cannot move your eye. ?? You are more sleepy than normal, or you notice changes in your ability to think, move, or talk. ?? You have a stiff neck, a fever, or a bad headache. ?? You have swelling of your forehead or scalp. When should I contact my healthcare provider? ?? Your symptoms get worse after 5 to 7 days. ?? Your symptoms do not go away after 10 days. ?? You have nausea and vomiting. ?? Your nose is bleeding. ?? You have questions or concerns about your condition or care. CARE AGREEMENT: You have the right to help plan your care. Learn about your health condition and how it may be treated. Discuss treatment options with your caregivers to decide what care you want to receive. You always have the right to refuse treatment. The above information is an educational administration teacher only. It is not intended as medical advice for individual conditions or treatments. Talk to your doctor, nurse or pharmacist before following any medical regimen to see if it is safe and effective for you. ?? 2016 [employer]. Information is for End User's use only and may not be sold, redistributed or otherwise used for commercial purposes. All illustrations and images included in CareNotes?? are the copyrighted property of [employer]. or [employer]. GROWER documented in this encounter Progress Notes * Praveena Knott APRN-CNP - 10/28/2016 9:54 AM CST 10/28/2016 PCP: Yosvany Gonsalez MD CC: Chief Complaint Patient presents with ??? Cough ??? Congestion . HPI: Natan Patel is a 61 y.o. male presents today at the [facility] with complaint of chest congestion and nasal congestion for 4-5 days, blowing out and coughing up clear to yellow mucus, pressure under eyes, no sore throat, no fever, no chest pain, no shortness of breath, no nausea, no vomiting. States is eating, drinking and voiding with no issues, no sick contacts. Outpatient Medications Prior to Visit Medication Sig Dispense Refill ??? pantoprazole EC (PROTONIX) 40 MG tablet Take 1 Tab by mouth once daily 90 Tab 3 ??? ezetimibe-simvastatin (VYTORIN) 10-10 MG tablet Take 1 Tab by mouth once daily 90 Tab 3 ??? aspirin (ASPIRIN) 81 MG chew tablet Take 81 mg by mouth once daily ??? Norton-3 Fatty Acids (FISH OIL) 1000 MG capsule Take by mouth once daily ??? Cholecalciferol (VITAMIN D) 2000 UNITS CAPS capsule Take 2,000 Units by mouth once daily ??? vitamin E (TOCOPHERYL) 400 UNIT tablet Take 400 Units by mouth once daily No facility-administered medications prior to visit. Past Medical History Diagnosis Date ??? Allergy ??? Chronic airway obstruction ??? Encounter for screening for malignant neoplasm of prostate ??? Esophageal reflux Past Surgical History Procedure Laterality Date ??? Other surgery dental extraction ??? Hernia repair, inguinal 02/2012 left ??? Knee replacement ??? Colonoscopy 02/04/15 3 polyps removed History Smoking Status ??? Light Tobacco Smoker ??? Packs/day: 0.25 ??? Types: Cigarettes Smokeless Tobacco ??? Never Used History Drug Use No Allergies Allergen Reactions ??? Morphine Family History Problem Relation Age of Onset ??? Hypertension Mother ??? Heart Disease Father ??? Cancer Other Father throat cancer Review of Systems: See HPI for pertinent positives, the rest of 10 point system review of system was found to be negative. ROS Exam: BP 128/72 (BP SITE: LEFT ARM, BP POSITION: SITTING, BP CUFF SIZE: Adult) Pulse 89 Temp 97.6 ??F (Oral) Resp 16 Wt 78.9 kg (174 lb) SpO2 98% BMI 28.08 kg/m2 FiO2: Physical Exam Constitutional: He is oriented to person, place, and time and well-developed, well-nourished, and in no distress. HENT: Head: Normocephalic. Right Ear: External ear normal. Left Ear: External ear normal. Nose: Mucosal edema, rhinorrhea and sinus tenderness present. Right sinus exhibits maxillary sinus tenderness. Left sinus exhibits maxillary sinus tenderness. Mouth/Throat: Oropharynx is clear and moist. Eyes: Conjunctivae and EOM are normal. Pupils are equal, round, and reactive to light. Right eye exhibits no discharge. Left eye exhibits no discharge. Neck: Normal range of motion. Neck supple. Cardiovascular: Normal rate, regular rhythm and normal heart sounds. No murmur heard. Pulmonary/Chest: Effort normal. No respiratory distress. He has no wheezes. He has rhonchi (minute rhonchi, minute cough, no resp distress.). He has no rales. Abdominal: Soft. Bowel sounds are normal. There is no tenderness. Musculoskeletal: Normal range of motion. Neurological: He is alert and oriented to person, place, and time. Gait normal. Skin: Skin is warm and dry. Psychiatric: Mood, memory, affect and judgment normal. No results found for this visit on 10/28/16. Plan Plan/TX: Impression: ICD-10-CM 1. Acute non-recurrent maxillary sinusitis J01.00 2. Acute bronchitis, unspecified organism J20.9 METHYLPREDNISOLONE ACETATE 80 MG INJ Orders Placed This Encounter ??? METHYLPREDNISOLONE ACETATE 80 MG INJ ??? methylPREDNISolone acetate (DEPO-MEDROL) 80 MG/ML injection Sig: Inject 1 mL into muscle once for 1 dose Dispense: 1 mL Refill: 0 ??? amoxicillin-clavulanate (AUGMENTIN) 875-125 MG tablet Sig: Take 1 Tab by mouth 2 times daily with morning and evening meal for 10 days Dispense: 20 Tab Refill: 0 ??? fluticasone propionate (FLONASE) 50 MCG/ACT nasal spray Sig: [place] 2 Sprays into each nostril once daily Dispense: 1 Bottle Refill: 0 Teaching on sinusitis, bronchitis, causes and treatment of, signs and symptoms of, declines CXR, teaching on medication regime and benefit of medication, teaching on Depo Medrol injection, risk and benefits, still wants, teaching on fever/pain control, saline nasal spray, netti pot as instructed, always with sterile solution, use inhaler as directed, increase fluids, cool mist vaporizer, follow up with PCP in 1 week and prn ER if needed if increased symptoms, fever, chest or back pain, shortness of breath or any concerns. Pt acknowledged all teaching with no questions. Follow up : No Follow-up on file. TIFFANY Cristina GROWER documented in this encounter Plan of Treatment Not on file documented as of this encounter Visit Diagnoses Diagnosis Acute non-recurrent maxillary sinusitis- Primary Acute bronchitis, unspecified organism documented in this encounter Administered Medications Administered Medications Medication Order MAR Action Action Date Dose Rate Site Methylprednlsolone 80mg Intramuscular Given 10/28/2016 80 mg Right Gluteal documented in this encounter Care Teams Paralegal Internship Relationship Specialty Start Date End Date Yosvany Gonsalez MD [address] [phone] PCP - General Internal Medicine 04/08/13 09/03/19 documented as of this encounter
--- OUTSIDE RECORDS SUMMARY | 2024-11-02 07:30 | XMS_ITS | Encounter Summary ---
Author Organization [facility] Address [address] [facility] [place] [address] Care Team Providers Care Molten Iron Pourer Name Role Phone Yosvany Gonsalez MD Primary Care Provider Reason for Visit * Reason Comments Comprehensive Chronic Disease Evaluation follow up and his cough. Voices no pain or distress. Encounter Details Date Type Department Care Team (Latest Contact Info) Description 09/09/2016 11:45 AM CDT Office Visit [facility] - Family Medicine [address] [phone] Yosvany Gonsalez MD [address] [place] [address] Acute tracheobronchitis (Primary Dx) Social History Tobacco Use Types Packs/Day Years [...] Sign Reading Time Taken Comments Blood Pressure 129/75 09/09/2016 12:10 PM CDT Pulse 88 09/09/2016 12:10 PM CDT Temperature 36.3 ??C (97.3 ??F) 09/09/2016 12:10 PM C DT Respiratory Rate 20 09/09/2016 12:10 PM CDT Oxygen Saturation 98% 09/09/2016 12:10 PM CDT Inhaled Oxygen Concentration - - Weight 78.9 kg (174 lb) 09/09/2016 12:10 PM CDT Height 170.2 cm (5' 7 ) 09/09/2016 12:10 PM CDT Body Mass Index 27.25 09/09/2016 12:10 PM CDT documented in this encounter Progress Notes * Yosvany Gonsalez MD - 09/09/2016 12:55 PM CDT Date: 09/09/2016 Pt Name: Natan Patel : 1955 AGE: 61 y.o. SEX: male SUBJECTIVE: Chief Complaint Patient presents with ??? Comprehensive Chronic Disease Evaluation follow up and his cough. Voices no pain or distress. Here for evaluation of above problems, compliant with current medications. Cough,chest congestion, productive of dark phlegm, getting worse. No fever or chills, continues to smoke occasionally, reinforced strongly need to quit smoking completely. Allergies Allergen Reactions ??? Morphine Current Outpatient Prescriptions Medication Sig Dispense Refill ??? azithromycin (ZITHROMAX) 250 MG tablet Take 2 tablets now, then 1 tablet daily for 4 days. 6 Tab 0 ??? methylPREDNISolone (MEDROL DOSEPAK) 4 MG tablet Take by mouth as directed 1 Each 0 ??? promethazine-codeine (PHENERGAN WITH CODEINE) 6.25-10 MG/5ML solution Take 5 mL by mouth every 6 hours as needed for Cough 240 mL 0 ??? pantoprazole EC (PROTONIX) 40 MG tablet Take 1 Tab by mouth once daily 90 Tab 3 ??? ezetimibe-simvastatin (VYTORIN) 10-10 MG tablet Take 1 Tab by mouth once daily 90 Tab 3 ??? aspirin (ASPIRIN) 81 MG chew tablet Take 81 mg by mouth once daily ??? [place]-3 Fatty Acids (FISH OIL) 1000 MG capsule Take by mouth once daily ??? loratadine (CLARITIN) 10 MG tablet Take 10 mg by mouth at bedtime ??? Cholecalciferol (VITAMIN D) 2000 UNITS CAPS capsule Take 2,000 Units by mouth once daily ??? vitamin E (TOCOPHERYL) 400 UNIT tablet Take 400 Units by mouth once daily No current facility-administered medications for this visit. Past Medical History Diagnosis Date ??? [...] of education: 12 Occupational History ??? [employer] Social History Main Topics ??? Smoking status: Current Every Day Smoker Packs/day: 0.25 Types: Cigarettes ??? Smokeless tobacco: Never Used ??? Alcohol use: 3.0 oz/week 6 Cans of beer per week ??? Drug use: No ??? Sexual activity: Not on file Other Topics Concern ??? Not on file Social History Narrative ROS: HEENT: none, minor sinus drainage, seasonal CV: no obvious problems, denies cp RS: breathing at baseline ABD: diet stable, bowels moving , voices no problems EXT: joint pains stable, denies leg swelling OBJECTIVE: BP 129/75 Pulse 88 Temp 97.3 ??F (Oral) Resp 20 Wt 78.9 kg (174 lb) BMI 27.25 kg/m2 PHYSICAL EXAM: BP 129/75 Pulse 88 Temp 97.3 ??F (Oral) Resp 20 Wt 78.9 kg (174 lb) BMI 27.25 kg/m2 General [...] Nodes: no cervical, axillary or inguinal adenopathy Lungs: breath sounds normal and symmetric; no rales or wheezes Heart: regular rhythm, normal S1 and S2, without murmurs, gallops or rubs Abdomen: soft without mass, non-tender, with normal bowel sounds Extremities: no clubbing, cyanosis or edema Skin: no rashes or other abnormalities are noted No results found for this or any previous visit (from the past 1008 hour(s)). ASSESSMENT: ICD-10-CM 1. Acute tracheobronchitis J20.9 PLAN: Orders Placed This Encounter ??? azithromycin (ZITHROMAX) 250 MG tablet ??? methylPREDNISolone (MEDROL DOSEPAK) 4 MG tablet ??? promethazine-codeine (PHENERGAN WITH CODEINE) 6.25-10 MG/5ML solution Return if symptoms worsen or fail to improve. Medications as noted, call if any issues worse. Yosvany Gonsalez MD documented in this encounter Plan of Treatment Not on file documented as of this encounter Visit Diagnoses Diagnosis Acute tracheobronchitis- Primary Acute bronchitis documented in this encounter Care Teams Molten Iron Pourer Relationship Specialty Start Date End Date Yosvany Gonsalez MD [address] [place] [phone] PCP - General Internal Medicine 04/08/13 09/03/19 documented as of this encounter
--- OUTSIDE RECORDS SUMMARY | 2024-11-02 07:30 | XMS_ITS | Encounter Summary ---
Author Organization [facility] Address [address] [facility] [place] [address] Care Team Providers Care Senior Reservations Agent Name Role Phone Yosvany Gonsalez MD Primary Care Provider [phone] Encounter Details Date Type Department Care Team (Late st Contact Info) Description 10/11/2016 Orders Only [facility] - Family Medicine [address] [phone] Yosvany Gonsalez MD [address] [place] [phone] Social History Tobacco Use Types Packs/Day Years [...] Date/Time Associated Diagnosis Comments URIC ACID BLOOD 10/11/2016 8:11 AM DIGITAL TECHNICIAN HEMOGLOBIN A1C 10/11/2016 8:11 AM DIGITAL TECHNICIAN CBC W AUTO DIFFERENTIAL 10/11/2016 8:11 AM DIGITAL TECHNICIAN COMPREHENSIVE METABOLIC PANEL 10/11/2016 8:11 AM DIGITAL TECHNICIAN PROSTATE SPECIFIC ANTIGEN SCREEN 10/11/2016 8:11 AM DIGITAL TECHNICIAN TSH 10/11/2016 8:11 AM DIGITAL TECHNICIAN LIPID PROFILE 10/11/2016 8:11 AM DIGITAL TECHNICIAN documented in this encounter Results * (ABNORMAL) HEMOGLOBIN A1C (10/11/2016 8:11 AM DIGITAL TECHNICIAN) Hemoglobin A1c 5.7(H) <5.7 % of total Hgb [facility] Comment: According to ADA guidelines, hemoglobin A1c <7.0% represents optimal control in non- diabetic patients. Different metrics may apply to specific patient populations. Standards of Medical Care in Diabetes-2013. Diabetes Care. 2013;36:s11-s66 For the purpose of screening for the presence of diabetes <5.7% ? Consistent with the absence of diabetes 5.7-6.4% ?Consistent with increased risk for diabetes ?(prediabetes) >or=6.5% ?Consistent with diabetes This assay result is consistent with an increased risk of diabetes. Currently, no consensus exists for use of hemoglobin A1c for diagnosis of diabetes for children. Test Performed at: [employer] [address] [place], [place] ??[phone] MICHEL LEO DO,MPH 10/11/2016 8:11 AM DIGITAL TECHNICIAN 10/11/2016 8:12 AM DIGITAL TECHNICIAN Yosvany Gonsalez MD LAB - CHEMISTRY VIVIANA ADAMS [facility] Organization Address City/State/[facility] de Phone Number [facility] [address] [place] [address] * PROSTATE SPECIFIC ANTIGEN SCREEN (10/11/2016 8:11 AM DIGITAL TECHNICIAN) PSA 0.7 < OR = 4.0 ng/mL [facility] Comment: This test was performed using the Siemens chemiluminescent method. Values obtained from different assay methods cannot be used interchangeably. PSA levels, regardless of value, should not be interpreted as absolute evidence of the presence or absence of disease. Test Performed at: [facility] [address] [place], [place] ??[address] MICHEL LEO DO,MPH 10/11/2016 8:11 AM DIGITAL TECHNICIAN 10/11/2016 8:12 AM DIGITAL TECHNICIAN Yosvany Gonsalez MD LAB - CHEMISTRY VIVIANA ADAMS Performing Organization Address [facility] Co de Phone Number [facility] [address] [place] [address] * TSH (10/11/2016 8:11 AM DIGITAL TECHNICIAN) [facility] TSH 1.31 0.40 - 4.50 mIU/L [facility] Comment: Test Performed at: [employer] [place] ??[address] MICHEL LEO DO,MPH 10/11/2016 8:11 AM DIGITAL TECHNICIAN 10/11/2016 8:12 AM DIGITAL TECHNICIAN Yosvany Gonsalez MD LAB - CHEMISTRY VIVIANA ADAMS Performing Organization Address [facility] de Phone Number [facility] [address] [place] [address] * CBC W AUTO DIFFERENTIAL (10/11/2016 8:11 AM DIGITAL TECHNICIAN) [facility] White Blood Cell Count 5.2 3.8 - 10.8 Thousand/u L [facility] RBC 4.48 4.20 - 5.80 Million/uL [facility] Hemoglobin 14.3 13.2 - 17.1 g/dL [facility] Hematocrit 43.1 38.5 - 50.0 % [facility] MCV 96.3 80.0 - 100.0 fL [facility] MCH 32.0 27.0 - 33.0 pg [facility] MCHC 33.3 32.0 - 36.0 g/dL [facility] RDW 14.7 11.0 - 15.0 % [facility] Platelet Count 243 140 - 400 Thousand/u L [facility] MPV 8.7 7.5 - 11.5 fL [facility] Neutrophil Absolute 2990 1500 - 7800 cells/uL [facility] Lymphocytes Absolute 1706 850 - 3900 cells/uL [facility] Absolute Monocytes 406 200 - 950 cells/uL [facility] Eosinophils Absolute 73 15 - 500 cells/uL [facility] Basophils Absolute 26 0 - 200 cells/uL [facility] Granulocytes % 57.5 % [facility] Lymphocytes % 32.8 % [facility] Monocytes % 7.8 % [facility] Eosinophils % 1.4 % [facility] Basophils % 0.5 % [facility] Comment: Test Performed at: [employer] [facility] [place] ??[phone] MICHEL LEO DO,MPH 10/11/2016 8:11 AM DIGITAL TECHNICIAN 10/11/2016 8:12 AM DIGITAL TECHNICIAN Yosvany Gonsalez MD LAB - HEMATOLOGY ORD ERABLES [facility] [address] [place] [address] * COMPREHENSIVE METABOLIC PANEL (10/11/2016 8:11 AM DIGITAL TECHNICIAN) Glucose 97 65 - 99 mg/dL [facility] Comment: ? Fasting reference interval BUN 17 7 - 25 mg/dL [facility] Creatinine 0.80 0.70 - 1.25 mg/dL [facility] Comment: For patients >49 years of age, the reference limit for Creatinine is approximately 13% higher for people identified as -[place]. eGFR by MDRD 96 > OR = 60 mL/min/1 .73m2 [facility] eGFR by MDRD 111 > OR = 60 mL/min/1 .73m2 [facility] BUN/Creatinine Ratio NOT APPLICABLE 6 - 22 (calc) [facility] Sodium 142 135 - 146 mmol/L [facility] Potassium 4.6 3.5 - 5.3 mmol/L [facility] Chloride 107 98 - 110 mmol/L [facility] CO2 30 20 - 31 mmol/L [facility] Calcium 9.2 8.6 - 10.3 mg/dL [facility] Protein Total 7.2 6.1 - 8.1 g/dL [facility] Albumin 4.4 3.6 - 5.1 g/dL [facility] Globulin Total 2.8 1.9 - 3.7 g/dL (calc) [facility] Albumin/Globulin Ratio 1.6 1.0 - 2.5 (calc) [facility] Bilirubin Total 0.8 0.2 - 1.2 mg/dL [facility] Alkaline Phosphatase 41 40 - 115 U/L [facility] AST 15 10 - 35 U/L [facility] ALT 19 9 - 46 U/L [facility] Comment: Test Performed at: [employer] [address] [place], [place] ??[address] MICHEL LEO DO,MPH 10/11/2016 8:11 AM DIGITAL TECHNICIAN 10/11/2016 8:12 AM DIGITAL TECHNICIAN Yosvany Gonsalez MD LAB - CHEMISTRY VIVIANA ADAMS Performing Organization Address [facility] Co de Phone Number [facility] [address] [place] [address] * URIC ACID BLOOD (10/11/2016 8:11 AM DIGITAL TECHNICIAN) Uric Acid 5.8 4.0 - 8.0 mg/dL [facility] Comment: Therapeutic target for gout patients: <6.0 mg/dL ?? Test Performed at: [employer] [address] [place] ??[phone] MICHEL LEO DO,MPH 10/11/2016 8:11 AM DIGITAL TECHNICIAN 10/11/2016 8:12 AM DIGITAL TECHNICIAN Yosvany Gonsalez MD LAB - CHEMISTRY VIVIANA ADAMS Performing Organization Address [facility] Co de Phone Number [facility] [address] [place] [address] * LIPID PROFILE (10/11/2016 8:11 AM DIGITAL TECHNICIAN) Cholesterol 158 125 - 200 mg/dL [facility] Comment: Test Performed at: [employer] [address] [place] ??[address] MICHEL ELO DO,MPH HDL Cholesterol 54 > OR = 40 mg/dL [facility] Triglycerides 80 <150 mg/dL [facility] LDL Calculated 88 <130 mg/dL (calc) [facility] Comment: Desirable range <100 mg/dL for patients with CHD or diabetes and <70 mg/dL for diabetic patients with known heart disease. CHOL/HDLC RATIO 2.9 < OR = 5.0 (calc) [facility] Non HDL Cholesterol 104 mg/dL (calc) [facility] Comment: Target for non-HDL cholesterol is 30 mg/dL higher than LDL cholesterol target. 10/11/2016 8:11 AM DIGITAL TECHNICIAN 10/11/2016 8:12 AM DIGITAL TECHNICIAN Yosvany Gonsalez MD LAB - CHEMISTRY VIVIANA ADAMS Performing Organization Address [facility] Co de Phone Number [facility] [address] [place] [address] documented in this encounter Visit Diagnoses Not on filedocumented in this encounter Care Teams Senior Reservations Agent Relationship Specialty Start Date End Date Yosvany Gonsalez MD [address] [place] [address] PCP - General Internal Medicine 04/08/13 09/03/19 documented as of this encounter
--- OUTSIDE RECORDS SUMMARY | 2024-11-02 07:30 | XMS_ITS | Encounter Summary ---
Author Organization [facility] Address [address] [facility] [address] [place] [address] Care Team Providers Care Hydrography Teacher Name Role Phone Yosvany Gonsalez MD Primary Care Provider [phone] Reason for Visit * Reason Comments POST-OP PROBLEM Encounter Details Date Type Department Care Team (Late st Contact Info) Description 12/26/2016 7:11 PM SOLE TIER - 12/26/2016 7:22 PM SOLE TIER Emergency ER at [address] [address] Discharge Disposition: Left Against Medical Advice/Discontinued Care Social History Tobacco Use Types Packs/Day [...] Sign Reading Time Taken Comments Blood Pressure 135/72 12/26/2016 5:39 PM SOLE TIER Pulse 94 12/26/2016 5:39 PM SOLE TIER Temperature 36.7 ??C (98 ??F) 12/26/2016 5:39 PM SOLE TIER Respiratory Rate 16 12/26/2016 5:39 PM SOLE TIER Oxygen Saturation 98% 12/26/2016 5:39 PM SOLE TIER Inhaled Oxygen Concentration - - Weight 82.9 kg (182 lb 12.2 oz) 12/26/2016 5:39 PM SOLE TIER Height 170.2 cm (5' 7 ) 12/26/2016 5:39 PM SOLE TIER Body Mass Index 28.62 12/26/2016 5:39 PM SOLE TIER documented in this encounter Medications at Time of Discharge Medication Sig Dispensed Refills Start Date End Date aspirin (ASPIRIN) 81 MG chew tablet Take 81 mg by mouth once daily Cholecalciferol (VITAMIN D) 2000 UNITS CAPS capsule Take 2,000 Units by mouth once daily [place]-3 Fatty Acids (FISH OIL) 1000 MG capsule Take by mouth once daily vitamin E (TOCOPHERYL) 400 UNIT tablet Take 400 Units by mouth once daily pantoprazole EC (PROTONIX) 40 MG tablet Take 1 Tab by mouth once daily 90 Tab 3 12/17/2015 12/29/2016 VYTORIN 10-10 MG tablet TAKE 1 TABLET ONCE DAILY 90 Tab 3 11/02/2016 10/19/2017 documented as of this encounter ED Notes * Summer Lagos, RN - 12/26/2016 6:40 PM CST Patient states that site is no longer bleeding; I would like to just go home. If it starts bleeding again I will return. Benefits of staying explained and risks of leaving explained. Patient statesunderstanding of same. 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 Had liu of blood into my dressing . Dressing intact. Reinforced dressing at this time. Denies any other complaints at this time. TIER documented in this encounter Plan of Treatment Not on file documented as of this encounter Visit Diagnoses Not on filedocumented in this encounter Care Teams Hydrography Teacher Relationship Specialty Start Date End Date Yosvany Gonsalez MD [address] [place] [phone] PCP - General Internal Medicine 04/08/13 09/03/19 documented as of this encounter
--- OUTSIDE RECORDS SUMMARY | 2024-11-02 07:30 | XMS_ITS | Encounter Summary ---
Author Organization [facility] Address [address] [facility] [address] [place] [address] Care Team Providers Care Structural Welder Name Role Phone Yosvany Gonsalez MD Primary Care Provider [phone] Reason for Visit * Reason Onset Date Comments Question 08/26/2016 Encounter Details Date Type Department Care Team (Late st Contact Info) Description 08/26/2016 Telephone [facility] - Family Medicine [address] [phone] Yosvany Gonsalez MD [address] [place] [address] Question Social History Tobacco Use [...] Telephone Encounter - Sarai Richmond RN - 08/26/2016 3:14 PM CDT Calling to say his insurance company is requesting a second opinion for his orthopedic surgery.He needs a referral.I checked the chart and he is scheduled for a pre op visit on Monday.I called the number he gave me and had to leave a message. documented in this encounter Plan of Treatment Not on file documented as of this encounter Visit Diagnoses Not on filedocumented in this encounter Care Teams Structural Welder Relationship Specialty Start Date End Date Yosvany Gonsalez MD [address] [place] [address] PCP - General Internal Medicine 04/08/13 09/03/19 documented as of this encounter
--- OUTSIDE RECORDS SUMMARY | 2024-11-02 07:30 | XMS_ITS | Encounter Summary ---
Author Organization [facility] Address [address] [place] [address] Care Team Providers Care Cross Country Coach Name Role Phone Sunshine Yosvany Marcial MD Primary Care Provider [phone] Reason for Visit * Reason Comments Cold Symptoms congestion, sore thr oat, itchy eyes x2 days Encounter Details Date Type Department Care Team (Late st Contact Info) Description 03/08/2017 4:15 PM CDT Office Visit [facility] [address] [place] [phone] Provider1, [facility] Acute non-recurrent maxillary sinusitis (Primary Dx) Social History Tobacco Use Types [...] Sign Reading Time Taken Comments Blood Pressure 140/78 03/08/2017 4:30 PM CDT Pulse 86 03/08/2017 4:30 PM CDT Temperature 36.8 ??C (98.2 ??F) 03/08/2017 4:30 PM CD T Respiratory Rate 14 03/08/2017 4:30 PM CDT Oxygen Saturation 96% 03/08/2017 4:30 PM CDT Inhaled Oxygen Concentration - - Weight 78.7 kg (173 lb 6.4 oz) 03/08/2017 4:30 P M CDT Height 170.2 cm (5' 7 ) 03/08/2017 4:30 PM CDT Body Mass Index 27.16 03/08/2017 4:30 PM CDT documented in this encounter Patient Instructions * Patient Instructions* Martin, Shanae, BAG FILLER-PRODUCTION FOREMAN - 03/08/2017 4:43 PM CDT Sinusitis WHAT YOU NEED TO KNOW: What [...] refuse treatment. The above information is an forestry fire aid only. It is not intended as medical advice for individual conditions or treatments. Talk to your doctor, nurse or pharmacist before following any medical regimen to see if it is safe and effective for you. ?? 2016 [employer]. Information is for End User's use only and may not be sold, redistributed or otherwise used for commercial purposes. All illustrations and images included in CareNotes?? are the copyrighted property of [employer]. or [employer]. documented in this encounter Progress Notes * Shanae Martin APRN-CNP - 03/08/2017 4:42 PM CDT 03/08/2017 PCP: Yosvany Gonsalez MD CC: Chief Complaint Patient presents with ??? Cold Symptoms congestion, sore throat, itchy eyes x2 days . HPI: Natan Patel is a 61 y.o. male presents today at the [facility] with complaints of sinus congestion, ST, and productive cough for 2 days. No fever. Smokes 1/2 ppd Outpatient Medications Prior to Visit Medication Sig Dispense Refill ??? pantoprazole EC (PROTONIX) 40 MG tablet Take 1 Tab by mouth once daily 90 Tab 3 ??? VYTORIN 10-10 MG tablet TAKE 1 TABLET ONCE DAILY 90 Tab 3 ??? aspirin (ASPIRIN) 81 MG chew tablet Take 81 mg by mouth once daily ??? [place]-3 Fatty Acids (FISH OIL) 1000 MG capsule [...] Review of Systems: Review of Systems Constitutional: Negative for chills, fever and malaise/fatigue. HENT: Positive for congestion, ear pain and sore throat. Eyes: Negative for blurred vision and double vision. Respiratory: Positive for cough and sputum production. Cardiovascular: Negative for chest pain and palpitations. Gastrointestinal: Negative for abdominal pain, constipation, diarrhea, nausea and vomiting. Genitourinary: Negative for dysuria. Musculoskeletal: Negative for myalgias. Neurological: Positive for headaches. Negative for weakness. All other systems reviewed and are negative. Exam: BP 140/78 (BP SITE: LEFT ARM, BP POSITION: SITTING, BP CUFF SIZE: Adult) Pulse 86 Temp 98.2 ??F (Oral) Resp 14 Wt 78.7 kg (173 lb 6.4 oz) SpO2 96% BMI 27.16 kg/m2 FiO2: Physical Exam Constitutional: He is oriented to person, place, and time and well-developed, well-nourished, and in no distress. HENT: Head: Normocephalic and atraumatic. Eyes: Conjunctivae are normal. Neck: Normal range of motion. Neck supple. Cardiovascular: Normal rate and regular rhythm. Pulmonary/Chest: Effort normal and breath sounds normal. No respiratory distress. He has no wheezes. He has no rales. Musculoskeletal: Normal range of motion. Neurological: He is alert and oriented to person, place, and time. Skin: Skin is warm and dry. Psychiatric: Affect and judgment normal. Nursing note and vitals reviewed. No results found for this visit on 03/08/17. Plan Impression: ICD-10-CM 1. Acute non-recurrent maxillary sinusitis J01.00 Treatment: Orders Placed This Encounter ??? amoxicillin-clavulanate (AUGMENTIN) 875-125 MG tablet Sig: Take 1 Tab by mouth 2 times daily for 10 days Dispense: 20 Tab Refill: 0 Patient Instructions Sinusitis WHAT YOU NEED TO KNOW: What [...] refuse treatment. The above information is an forestry fire aid only. It is not intended as medical advice for individual conditions or treatments. Talk to your doctor, nurse or pharmacist before following any medical regimen to see if it is safe and effective for you. ?? 2016 [employer]. Information is for End User's use only and may not be sold, redistributed or otherwise used for commercial purposes. All illustrations and images included in CareNotes?? are the copyrighted property of [employer] or [employer] or [employer]. There are no discontinued medications. Current Outpatient Prescriptions Medication Sig Dispense Refill ??? amoxicillin-clavulanate (AUGMENTIN) 875-125 MG tablet Take 1 Tab by mouth 2 times daily for 10 days 20 Tab 0 ??? pantoprazole EC (PROTONIX) 40 MG tablet Take 1 Tab by mouth once daily 90 Tab 3 ??? VYTORIN 10-10 MG tablet TAKE 1 TABLET ONCE DAILY 90 Tab 3 ??? aspirin (ASPIRIN) 81 MG chew tablet Take 81 mg by mouth once daily ??? [place]-3 Fatty Acids (FISH OIL) 1000 MG capsule Take by mouth once daily ??? Cholecalciferol (VITAMIN D) 2000 UNITS CAPS capsule Take 2,000 Units by mouth once daily ??? vitamin E (TOCOPHERYL) 400 UNIT tablet Take 400 Units by mouth once daily No current facility-administered medications for this visit. Follow up : Return if symptoms worsen or fail to improve. TIFFANY Smallwood documented in this encounter Miscellaneous Notes * Addendum Note - Shanae Martin APRN-CNP - 03/08/2017 4:45 PM CDTAddended by: SHANAE MARTIN on: 03/08/2017 04:45 PM Modules accepted: Orders documented in this encounter Plan of Treatment Not on file documented as of this encounter Visit Diagnoses Diagnosis Acute non-recurrent maxillary sinusitis- Primary documented in this encounter Care Teams Cross Country Coach Relationship Specialty Start Date End Date Yosvany Gonsalez MD [address] [place] [phone] PCP - General Internal Medicine 04/08/13 09/03/19 documented as of this encounter
--- OUTSIDE RECORDS SUMMARY | 2024-11-02 07:31 | XMS_ITS | Encounter Summary ---
Author Organization [facility] Address [address] [place] [address] Care Team Providers Care Laser Set Up Operator Name Role Phone Yosvany Gonsalez MD Primary Care Provider [phone] Reason for Visit * Reason Onset Date Comments MEDICATION REFILL 09/21/2015 Encounter Details Date Type Department Care Team (Late st Contact Info) Description 09/21/[address] [facility] Medical [facility] - Family Medicine [address] [place] [phone] Yosvany Gonsalez MD [address] [place] [address] MEDICATION REFILL Social History Tobacco [...] Telephone Encounter - Sarai Richmond RN - 09/21/2015 2:[address] Gonsalez for RF. X CLERK documented in this encounter Plan of Treatment Not on file documented as of this encounter Visit Diagnoses Not on filedocumented in this encounter Care Teams Laser Set Up Operator Relationship Specialty Start Date End Date Yosvany Gonsalez MD [address] [place] [phone] PCP - General Internal Medicine 04/08/13 09/03/19 documented as of this encounter
--- OUTSIDE RECORDS SUMMARY | 2024-11-02 07:31 | XMS_ITS | Encounter Summary ---
Author Organization [facility] Address [address] [place] [address] Care Team Providers Care Photo Colorer Name Role Phone Yosvany Gonsalez MD Primary Care Provider [phone] Reason for Referral * Cardiac - Closed Specialty Diagnoses / Procedures Referred By Shelby jama Referred To Contact Cardiology Diagnoses RANDY on CPAP Atypical chest pain Procedures ECHOCARDIOGRAM STRESS CPT 53683 Yosvany Gonsalez MD [address] [phone] Referral ID Status Reason Start Date Expiration Date Visits Re quested Visits Authorized [id number] Closed 10/16/2015 04/13/2016 1 1 DENT HANDLER Reason for Visit * Reason Comments Complete Physical Exam annual exam Encounter Details Date Type Department Care Team (Late st Contact Info) Description 10/16/2015 4:15 PM INCIDENT HANDLER Office Visit [facility] Medical [facility] - Family Medicine [address] [phone] Yosavny Gonsalez MD [address] [place] [address] Annual physical exam (Primary Dx); Need for prophylactic vaccination and inoculation against influenza; Mixed hyperlipidemia; Cigarette nicotine dependence without complication; High risk medications (not anticoagulants) long-term use; RANDY on CPAP; Atypical chest pain Social History Tobacco Use Types Packs/Day Years [...] Sign Reading Time Taken Comments Blood Pressure 142/88 10/16/2015 4:16 PM INCIDENT HANDLER Pulse 82 10/16/2015 4:16 PM INCIDENT HANDLER Temperature 36.6 ??C (97.8 ??F) 10/16/2015 4:16 PM CS T Respiratory Rate 16 10/16/2015 4:16 PM INCIDENT HANDLER Oxygen Saturation 98% 10/16/2015 4:16 PM INCIDENT HANDLER Inhaled Oxygen Concentration - - Weight 77.6 kg (171 lb) 10/16/2015 4:16 PM INCIDENT HANDLER Height 170.2 cm (5' 7 ) 10/16/2015 4:16 PM INCIDENT HANDLER Body Mass Index 26.78 10/16/2015 4:16 PM INCIDENT HANDLER documented in this encounter Progress Notes * Yosvany Gonsalez MD - 10/16/2015 4:42 PM CST Date: 10/16/2015 Pt Name: Natan Patel : 1955 AGE: 60 y.o. SEX: male SUBJECTIVE: Chief Complaint Patient presents with ??? Complete Physical Exam annual exam History of Present Illness: patient is here for his annual check, has several issues. Occasional chest discomfort, left side, not related to exertion, radiates to his back. Patient has a strong family history of coronary artery disease with his dad having had his first AK at age 30. Continued use of tobacco amuck continues to smoke, trying to cut back. On low-fat diet, compliant with medications. Blood pressure diary from home reviewed, heart rate is stable, no complaints of shortness of breathpalpitations or dizziness. ACTIVE, PAIN CONTROL ADEQUATE, COPING WITH STRESSORS WELL. FATIGUE STABLE. NO SIGNIFICANT CHANGE INWEIGHT, NO RECENT ISSUES WITH FEVER, CHILLS. ALL MEDICATIONS WITH INSTRUCTIONS REVIEWED AT TODAY'S VISIT Current Outpatient Prescriptions Medication Sig Dispense Refill ??? loratadine (CLARITIN) 10 MG tablet Take 10 mg by mouth at bedtime ??? ezetimibe-simvastatin (VYTORIN) 10-10 MG tablet Take 1 Tab by mouth once daily 90 Tab 3 ??? Cholecalciferol (VITAMIN D) 2000 UNITS CAPS [...] Normal OBJECTIVE: WDWN, Alert, No Distress BP 142/88 mmHg Pulse 82 Temp(Src) 97.8 ??F (Oral) Resp 16 Wt 77.565 kg (171 lb) BMI 26.78kg/m2 PHYSICAL EXAM: BP 142/88 mmHg Pulse 82 Temp(Src) 97.8 ??F (Oral) Resp 16 Wt 77.565 kg (171 lb) BMI 26.78kg/m2 General appearance: alert, cooperative, no distress Head: [...] intact and symmetrical, no carotid bruits Joints: ranges of motion preserved. No active inflammation, [...] past 1344 hour(s)) LIPID PROFILE Collection Time: 10/02/15 7:49 AM Result Value Ref Range Cholesterol 177 125 - 200 mg/dL Chol HDL 50 > OR = 40 mg/dL Triglycerides 120 <150 mg/dL LDL Calc 103 <130 mg/dL (calc) CHOL/HDLC RATIO 3.5 < OR = 5.0 (calc) Non HDL Cholesterol 127 mg/dL (calc) URIC ACID BLOOD Collection Time: 10/02/15 7:49 AM Result Value Ref Range Uric Acid 6.2 4.0 - 8.0 mg/dL COMPREHENSIVE METABOLIC PANEL Collection Time: 10/02/15 7:49 AM Result Value Ref Range Glucose 96 65 - 99 mg/dL BUN 12 7 - 25 mg/dL Creatinine 0.75 0.70 - 1.25 mg/dL eGFR MDRD 99 > OR = 60 mL/min/1.73m2 eGFR MDRD AFR AMR 115 > OR = 60 mL/min/1.73m2 BUN/Creat NOT APPLICABLE 6 - 22 (calc) Sodium 139 135 - 146 mmol/L Potassium 4.3 3.5 - 5.3 mmol/L Chloride 103 98 - 110 mmol/L CO2 27 19 - 30 mmol/L Calcium 9.3 8.6 - 10.3 mg/dL Protein Total 7.3 6.1 - 8.1 g/dL Albumin 4.5 3.6 - 5.1 g/dL Globulin Total 2.8 1.9 - 3.7 g/dL (calc) Alb/Glob Ratio 1.6 1.0 - 2.5 (calc) Bili Total 0.9 0.2 - 1.2 mg/dL Alk Phos 39 (L) 40 - 115 U/L AST/SGOT 16 10 - 35 U/L ALT/SGPT 16 9 - 46 U/L CBC W AUTO DIFFERENTIAL Collection Time: 10/02/15 7:49 AM Result Value Ref Range White Blood Cell Count 6.4 3.8 - 10.8 Thousand/uL RBC 4.77 4.20 - 5.80 Million/uL Hgb 15.4 13.2 - 17.1 g/dL Hct 46.4 38.5 - 50.0 % MCV 97.3 80.0 - 100.0 fL MCH 32.2 27.0 - 33.0 pg MCHC 33.1 32.0 - 36.0 g/dL RDW 13.3 11.0 - 15.0 % Plt Ct 242 140 - 400 Thousand/uL MPV 8.9 7.5 - 11.5 fL Absolute Neutrophils 3085 1500 - 7800 cells/uL Absolute Lymphocytes 2630 850 - 3900 cells/uL Absolute Monocytes 582 200 - 950 cells/uL Absolute Eosinophils 70 15 - 500 cells/uL Absolute Basophils 32 0 - 200 cells/uL Gran 48.2 % Lymph 41.1 % [place] 9.1 % Eos 1.1 % Baso 0.5 % TSH Collection Time: 10/02/15 7:49 AM Result Value Ref Range TSH 1.78 0.40 - 4.50 mIU/L PROSTATE SPECIFIC ANTIGEN SCREEN Collection Time: 10/02/15 7:49 AM Result Value Ref Range PSA 0.6 < OR = 4.0 ng/mL HEMOGLOBIN A1C Collection Time: 10/02/15 7:49 AM Result Value Ref Range Hgb A1c 5.9 (H) <5.7 % of total Hgb ASSESSMENT: ICD-10-CM ICD-9-CM 1. Annual physical exam Z00.00 V70.0 2. Need for prophylactic vaccination and inoculation against influenza Z23 V04.81 FLU VAC NO PRSV 4VAL 3 YRS PLUS 3. Mixed hyperlipidemia E78.2 272.2 4. Cigarette nicotine dependence without complication F17.210 305.1 5. High risk medications (not anticoagulants) long-term use Z79.899 V58.69 6. RANDY on CPAP G47.33 327.23 ECHOCARDIOGRAM STRESS 7. Atypical chest pain R07.89 786.59 ECHOCARDIOGRAM STRESS PLAN: Orders Placed This Encounter ??? FLU VAC NO PRSV 4 ELVIRA 3 YRS PLUS ??? ECHOCARDIOGRAM STRESS Return in about 4 weeks (around 11/13/2015). RECENT COMPREHENSIVE SET OF LABS INCLUDING CBC, CMP, FBS ETC WERE ALL REVIEWED, DEVIATION FROM NORMAL NOTED, QUESTIONS, CONCERNS WERE ADDRESSED . USE OF CURRENT PRESCRIPTION MEDICATIONS, IT'S MANAGEMENT AND IMPACT ON PATIENT'S HEALTH DISCUSSED. Given patient's symptoms, family concerns, family history of coronary artery disease, risk factors will proceed with a stress echo intervene after results are available. Patient has been strongly advised to try and quit smoking completely. Yosvany Gonsalez MD DENT HANDLER documented in this encounter Plan of Treatment Not on file documented as of this encounter Visit Diagnoses Diagnosis Annual physical exam- Primary Routine general medical examination at a health care facility Need for prophylactic vaccination and inoculation against influenza Mixed hyperlipidemia Cigarette nicotine dependence without complication Tobacco use disorder High risk medications (not anticoagulants) long-term use Encounter for long-term (current) use of other medications RANDY on CPAP Obstructive sleep apnea (adult) (pediatric) Atypical chest pain Other chest pain documented in this encounter Care Teams Photo Colorer Relationship Specialty Start Date End Date Yosvany Gonsalez MD [address] [place] [phone] PCP - General Internal Medicine 04/08/13 09/03/19 documented as of this encounter
--- OUTSIDE RECORDS SUMMARY | 2024-11-02 07:31 | XMS_ITS | Encounter Summary ---
Author Organization [facility] Address [address] [place] [address] Care Team Providers Care Digital Artist Name Role Phone Yosvany Gonsalez MD Primary Care Provider [phone] Reason for Visit * Reason Comments Comprehensive Chronic Disease Evaluation Medication Check Chest Pain stress test results atypical chest pain Encounter Details Date Type Department Care Team (Late st Contact Info) Description 12/07/2015 2:00 PM ACCOUNT MANAGER FOREST SERVICE Office Visit [facility] Medical [facility] - Family Medicine [address] [place] [phone] Yosvany Gonsalez MD [address] [place] [address] Chronic gastritis (Primary Dx) Social History Tobacco Use Types [...] Sign Reading Time Taken Comments Blood Pressure 130/72 12/07/2015 2:12 PM ACCOUNT MANAGER FOREST SERVICE Pulse 92 12/07/2015 2:12 PM ACCOUNT MANAGER FOREST SERVICE Temperature 36.6 ??C (97.9 ??F) 12/07/2015 2:12 PM CS T Respiratory Rate 16 12/07/2015 2:12 PM ACCOUNT MANAGER FOREST SERVICE Oxygen Saturation 97% 12/07/2015 2:12 PM ACCOUNT MANAGER FOREST SERVICE Inhaled Oxygen Concentration - - Weight 79.1 kg (174 lb 6.4 oz) 12/07/2015 2:12 P M ACCOUNT MANAGER FOREST SERVICE Height 170.2 cm (5' 7 ) 12/07/2015 2:12 PM ACCOUNT MANAGER FOREST SERVICE Body Mass Index 27.31 12/07/2015 2:12 PM ACCOUNT MANAGER FOREST SERVICE documented in this encounter Progress Notes * Yosvany Gonsalez MD - 12/07/2015 2:28 PM CST Date: 12/07/2015 Pt Name: Natan Patel : 1955 AGE: 60 y.o. SEX: male SUBJECTIVE: Chief Complaint Patient presents with ??? Comprehensive Chronic Disease Evaluation ??? Medication Check ??? Chest Pain stress test results atypical chest pain Here for evaluation of above problems, compliant with current medications. Stomach is still sore chest pain resolved breathing at baseline continues to smoke heavily. No Known Allergies Current Outpatient Prescriptions Medication Sig Dispense Refill ??? pantoprazole EC (PROTONIX) 40 MG tablet Take 1 Tab by mouth once daily 90 Tab 3 ??? ezetimibe-simvastatin (VYTORIN) 10-10 MG tablet Take 1 Tab by mouth once daily 90 Tab 3 ??? aspirin (ASPIRIN) 81 MG chew tablet Take 81 mg by mouth once daily ??? [place]-3 Fatty Acids (FISH OIL) 1000 MG capsule [...] at baseline ABD: diet stable, bowels moving EXT: joint pains stable, denies leg swelling OBJECTIVE: BP 130/72 mmHg Pulse 92 Temp(Src) 97.9 ??F (Oral) Resp 16 Wt 79.107 kg (174 lb 6.4 oz) BMI 27.31 kg/m2 PHYSICAL EXAM: BP 130/72 mmHg Pulse 92 Temp(Src) 97.9 ??F (Oral) Resp 16 Wt 79.107 kg (174 lb 6.4 oz) BMI 27.31 kg/m2 General appearance: alert, cooperative, [...] gallops or rubs Abdomen: soft without mass, epigastric tenderness with normal bowel sounds Extremities: no clubbing, cyanosis or edema Skin: no rashes or other abnormalities are noted Recent Results (from the past 1008 hour(s)) ECG STRESS TRACING Collection Time: 11/16/15 7:46 AM Result Value Ref Range Stress Test Summary For full formatted report, please see the report link in the order. Acquisition Time: 2015-11-16 07:46:37 Total Exercise Time: 00:10:30 Test Indications: Chest pain Medications: Protocol: MARCELA Max HR: 148 BPM 93% of Pred: 159 BPM Max BP: 176/093 mmHG Max [...] 10.5 mins, achieved 14 METS Confirmed by Armani Burkett ([id number]) on 11/16/2015 9:12:22 AM Attending Physician: ARMANI BURKETT DO Referred By: OLI Overread By: Armani Burkett ASSESSMENT: ICD-10-CM ICD-9-CM 1. Chronic gastritis K29.50 535.10 PLAN: Orders Placed This Encounter ??? pantoprazole EC (PROTONIX) 40 MG tablet Return in about 3 months (around 03/06/2016). Medications as noted, call if any issues worse. Trial of Protonix consider CT scan upper scope if symptoms do not resolve consider evaluation for H. Pylori infection follow closely patient to come back in 3 months. Yosvany Gonsalez MD UNT MANAGER FOREST SERVICE documented in this encounter Plan of Treatment Not on file documented as of this encounter Visit Diagnoses Diagnosis Chronic gastritis- Primary Atrophic gastritis without mention of hemorrhage documented in this encounter Care Teams Digital Artist Relationship Specialty Start Date End Date Yosvany Gonsalez MD [address] [place] [phone] PCP - General Internal Medicine 04/08/13 09/03/19 documented as of this encounter
--- OUTSIDE RECORDS SUMMARY | 2024-11-02 07:31 | XMS_ITS | Encounter Summary ---
Author Organization [facility] Address [address] [place] [address] Care Team Providers Care Plastic Products Sales Representative Name Role Phone Yosvany Gonsalez MD Primary Care Provider [phone] Reason for Visit * Reason Onset Date Comments MEDICATION REFILL 11/19/2015 Encounter Details Date Type Department Care Team (Late st Contact Info) Description 11/19/2015 Refill [facility] Medical [facility] - Family Medicine [address] [place] [phone] Yosvany Gonsalez MD [address] [place] [address] MEDICATION REFILL Social History Tobacco [...] Telephone Encounter - Sarai Richmond RN - 11/19/2015 4:32 PM CST Rf per protocol. R INTERNSHIP documented in this encounter Plan of Treatment Not on file documented as of this encounter Visit Diagnoses Not on filedocumented in this encounter Care Teams Plastic Products Sales Representative Relationship Specialty Start Date End Date Yosvany Gonsalez MD [address] [place] [phone] PCP - General Internal Medicine 04/08/13 09/03/19 documented as of this encounter
--- OUTSIDE RECORDS SUMMARY | 2024-11-02 07:31 | XMS_ITS | Encounter Summary ---
Author Organization [facility] Address [address] [place] [address] Care Team Providers Care Regional Facilities Manager Name Role Phone Yosvany Gonsalez MD Primary Care Provider [phone] Reason for Visit * Other (Routine) - Closed Specialty Diagnoses / Procedures Referred By Shelby jama Referred To Contact Cardiology [facility] [address] [place] [address] [facility] [address] [place] [phone] Referral ID Status Reason Start Date Expiration Date Visits Re quested Visits Authorized [id number] Closed 11/16/2015 05/14/2016 1 1 Encounter Details Date Type Department Care Team (Late st Contact Info) Description 11/16/2015 7:21 AM TANNERY WORKER - 11/16/2015 11:59 PM [facility] Hospital Encounter [facility] - Cardiology [address] [place] [address] Yosvany Gonsalez MD [address] [place] [address] Armani Trinidad T, DO 2 [facility] [address] [place] [address] Discharge Disposition: Home or Self Care Social [...] Sign Reading Time Taken Comments Blood Pressure 133/84 11/16/2015 7:43 AM TANNERY WORKER Pulse 71 11/16/2015 7:43 AM TANNERY WORKER Temperature - - Respiratory Rate 20 11/16/2015 7:43 AM TANNERY WORKER Oxygen Saturation - - Inhaled Oxygen Concentration - - Weight 77.6 kg (171 lb) 11/16/2015 7:43 AM TANNERY WORKER Height 170.2 cm (5' 7 ) 11/16/2015 7:43 AM TANNERY WORKER Body Mass Index 26.78 11/16/2015 7:43 AM TANNERY WORKER documented in this encounter Medications at Time of Discharge Medication Sig Dispensed Refills Start Date End Date aspirin (ASPIRIN) 81 MG chew tablet Take 81 mg by mouth once daily Cholecalciferol (VITAMIN D) 2000 UNITS CAPS capsule Take 2,000 Units by mouth once daily [place]-3 Fatty Acids (FISH OIL) 1000 MG capsule Take by mouth once daily vitamin E (TOCOPHERYL) 400 UNIT tablet Take 400 Units by mouth once daily ezetimibe-simvastatin (VYTORIN) 10-10 MG tablet Take 1 Tab by mouth once daily 90 Tab 3 09/21/2015 11/19/2015 loratadine (CLARITIN) 10 MG tablet Take 10 mg by mouth at bedtime Reported on 10/19/2016 10/19/2016 documented as of this encounter Progress Notes * Soraya Meek RN - 11/16/2015 8:51 AM CST Discharge instructions given for reported chest pain or shortness of breath : patient verbalizes understanding Discharged from stress lab per ambulation Transported to [facility] LOC: wnl Condition on discharge stable Soraya Meek RN ERY WORKER * Soraya Meek RN - 11/16/2015 8:48 AM CST Patient exercised 10:30 minutes on treadmill, denies chest pain, shortness of breath. Large glass of water given. ERY WORKER Soraya Herring RN - 11/16/2015 8:[address] Shashank Trinidad here speaking with patient stress testing to begin. ERY WORKER * Soraya Meek RN - 11/16/2015 7:24 AM CST Procedure note: Patient arrived in the stress lab. Alert and oriented x3. Skin warm and dry. Procedure was explained and all questions answered. A signed consent was obtained with no concerns voiced. ERY WORKER documented in this encounter Plan of Treatment Not on file documented as of this encounter Procedures Procedure Name Priority Date/Time Associated Diagnosis Comments ECHOCARDIOGRAM STRESS Routine 11/16/2015 5:06 PM TANNERY WORKER Atypical chest pain STRESS TEST TREADMILL (NO IMAGING) Routine 11/16/2015 7:46 AM TANNERY WORKER Atypical chest pain documented in this encounter Results * ECHOCARDIOGRAM STRESS Walking Stress ECHO (11/16/2015 5:06 PM TANNERY WORKER) Narrative [facility] - 11/16/2015 5:06 PM TANNERY WORKER [facility] [address] [place] [address] Exercise Stress Echocardiography Patient: MANDIE PATEL MR #: [id number] : 1955 Age: 60 years Gender: Male Study date: 16-Nov-2015 Status: Outpatient Room: - Ordering Physician: ??Armani Trinidad DO, MSEE Referring Physician: ??Yosvany Gonsalez MD Ext Js Developer: ??Armani Trinidad DO, MSEE Ext Js Developer: ??[facility] Heart and Combination Welder: ??Obdulia Bowden RDCS Clinical question: Atypical Chest Pain [...] reviewed by me. Prepared and Electronically Authenticated Armani Trinidad DO, MSEE 16-Nov-2015 17:09:40 Procedure Note Unknown, Provider - 11/16/2015 [facility] [address] [place] [address] Exercise Stress Echocardiography Patient: MANDIE PATEL MR #: [id number] : 1955 Age: 60 years Gender: Male Study date: 16-Nov-2015 Status: Outpatient Room: - Ordering Physician: Armani Trinidad DO, MSEE Referring Physician: Yosvany Gonsalez MD Ext Js Developer: Armani Trinidad DO, MSEE Ext Js Developer: [facility] Heart and Combination Welder: Obdulia Bowden RDCS Clinical question: Atypical Chest [...] personally reviewedby me. Prepared and Electronically Authenticated Armani Trinidad DO, MSEE 16-Nov-2015 17:09:40 Armani Trinidad DO ECHO ORDERABLES [facility] * ECG STRESS TRACING (11/16/2015 7:46 AM TANNERY WORKER) Stress Test Summary For full formatted report, [...] mins, achieved 14 METS Confirmed by Armani Trinidad ([id number]) on 11/16/2015 9:12:22 AM Attending Physician: KWADWO ??DOARMANI Referred By: OLI ?Overread By: Armani Trinidad [facility] STRESS 11/16/2015 7:46 AM TANNERY WORKER 11/16/2015 9:12 AM TANNERY WORKER Armani Trinidad DO CARDIAC SERVICES ORD ERABLES [facility] STRESS documented in this encounter Visit Diagnoses Diagnosis RANDY on CPAP Obstructive sleep apnea (adult) (pediatric) Atypical chest pain Other chest pain documented in this encounter Administered Medications Inactive Administered Medications - up to 3 most recent administrations Medication Order MAR Action Action Date Dose Rate Site perflutren Lipid Microsphere (DEFINITY) injection SUSP 1.5 mL 1.5 mL, Intravenous, INTRA-PROCEDURE ONCE, 1 dose, On 11/16/15 at 0821, Shake well before using. $ Given 11/16/2015 8:21 AM TANNERY WORKER 1.5 mL documented in this encounter Care Teams Regional Facilities Manager Relationship Specialty Start Date End Date Yosvany Gonsalez MD [address] [place] [address] PCP - General Internal Medicine 04/08/13 09/03/19 documented as of this encounter
--- OUTSIDE RECORDS SUMMARY | 2024-11-02 07:31 | XMS_ITS | Encounter Summary ---
Author Organization [facility] Address [address] [place] [address] Care Team Providers Care Hand I Cutter Name Role Phone Yosvany Gonsalez MD Primary Care Provider [phone] Reason for Visit * Reason Onset Date Comments Medication Prior Auth Request 12/07/2015 Encounter Details Date Type Department Care Team (Late st Contact Info) Description 12/07/2015 Telephone [facility] Medical [facility] - Family Medicine [address] [phone] Yosvany Gonsalez MD [address] [place] [address] Medication Prior Auth Request Social History Tobacco Use Types Packs/Day [...] Telephone Encounter - Wilma Lomeli LPN - 12/07/2015 5:20 PM CST PA started for patient - [facility], sent to plan via [email or web address] INE SET UP OPERATOR documented in this encounter Plan of Treatment Not on file documented as of this encounter Visit Diagnoses Not on filedocumented in this encounter Care Teams Hand I Cutter Relationship Specialty Start Date End Date Yosvany Gonsalez MD [address] [phone] PCP - General Internal Medicine 04/08/13 09/03/19 documented as of this encounter
--- OUTSIDE RECORDS SUMMARY | 2024-11-02 07:31 | XMS_ITS | Encounter Summary ---
Author Organization [facility] Address [address] [place] [address] Care Team Providers Care Mill Stenciler Name Role Phone Yosvany Gonsalez MD Primary Care Provider [phone] Encounter Details Date Type Department Care Team (Late st Contact Info) Description 10/02/2015 Orders Only [facility] - Family Medicine [address] [phone] Yosvany Gonsalez MD [address] [place] [phone] Social History Tobacco Use Types Packs/Day Years [...] Date/Time Associated Diagnosis Comments URIC ACID BLOOD 10/02/2015 7:49 AM HEAVY EQUIPMENT FIELD MECHANIC HEMOGLOBIN A1C 10/02/2015 7:49 AM HEAVY EQUIPMENT FIELD MECHANIC CBC W AUTO DIFFERENTIAL 10/02/2015 7:49 AM HEAVY EQUIPMENT FIELD MECHANIC COMPREHENSIVE METABOLIC PANEL 10/02/2015 7:49 AM HEAVY EQUIPMENT FIELD MECHANIC PROSTATE SPECIFIC ANTIGEN SCREEN 10/02/2015 7:49 AM HEAVY EQUIPMENT FIELD MECHANIC TSH 10/02/2015 7:49 AM HEAVY EQUIPMENT FIELD MECHANIC LIPID PROFILE 10/02/2015 7:49 AM HEAVY EQUIPMENT FIELD MECHANIC documented in this encounter Results * (ABNORMAL) HEMOGLOBIN A1C (10/02/2015 7:49 AM HEAVY EQUIPMENT FIELD MECHANIC) Hemoglobin A1c 5.9(H) <5.7 % of total Hgb [facility] Comment: [...] of diabetes for children. Test Performed at: [facility] [place], [place] ??[phone] MICHEL LEO DO,MPH 10/02/2015 7:49 AM HEAVY EQUIPMENT FIELD MECHANIC 10/02/2015 7:50 AM HEAVY EQUIPMENT FIELD MECHANIC Yosvany Gonsalez MD LAB - CHEMISTRY VIVIANA ADAMS [facility] Organization Address City/State/[facility] Co de Phone Number [facility] [address] [place] [address] * PROSTATE SPECIFIC ANTIGEN SCREEN (10/02/2015 7:49 AM HEAVY EQUIPMENT FIELD MECHANIC) PSA 0.6 < OR = 4.0 ng/mL [facility] Comment: This test was performed using the Siemens chemiluminescent method. Values obtained from different assay methods cannot be used interchangeably. PSA levels, regardless of value, should not be interpreted as absolute evidence of the presence or absence of disease. Test Performed at: [facility] [address] [place], [place] ??[phone] MICHEL LEO DO,MPH 10/02/2015 7:49 AM HEAVY EQUIPMENT FIELD MECHANIC 10/02/2015 7:50 AM HEAVY EQUIPMENT FIELD MECHANIC Yosvany Gonsalez MD LAB - CHEMISTRY VIVIANA ADAMS Performing Organization Address [facility] Co de Phone Number [facility] [address] [place] [address] * TSH (10/02/2015 7:49 AM HEAVY EQUIPMENT FIELD MECHANIC) [facility] TSH 1.78 0.40 - 4.50 mIU/L [facility] Comment: Test Performed at: [facility] [place], [place] ??[phone] MICHEL LEO DO,MPH 10/02/2015 7:49 AM HEAVY EQUIPMENT FIELD MECHANIC 10/02/2015 7:50 AM HEAVY EQUIPMENT FIELD MECHANIC Yosvany Gonsalez MD LAB - CHEMISTRY VIVIANA ADAMS Performing Organization Address [facility] de Phone Number [facility] [address] [place] [address] * CBC W AUTO DIFFERENTIAL (10/02/2015 7:49 AM HEAVY EQUIPMENT FIELD MECHANIC) [facility] White Blood Cell Count 6.4 3.8 - 10.8 Thousand/u L [facility] RBC 4.77 4.20 - 5.80 Million/uL [facility] Hemoglobin 15.4 13.2 - 17.1 g/dL [facility] Hematocrit 46.4 38.5 - 50.0 % [facility] MCV 97.3 80.0 - 100.0 fL [facility] MCH 32.2 27.0 - 33.0 pg [facility] MCHC 33.1 32.0 - 36.0 g/dL [facility] RDW 13.3 11.0 - 15.0 % [facility] Platelet Count 242 140 - 400 Thousand/u L [facility] MPV 8.9 7.5 - 11.5 fL [facility] Neutrophil Absolute 3085 1500 - 7800 cells/uL [facility] Lymphocytes Absolute 2630 850 - 3900 cells/uL [facility] Absolute Monocytes 582 200 - 950 cells/uL [facility] Eosinophils Absolute 70 15 - 500 cells/uL [facility] Basophils Absolute 32 0 - 200 cells/uL [facility] Granulocytes % 48.2 % [facility] Lymphocytes % 41.1 % [facility] Monocytes % 9.1 % [facility] Eosinophils % 1.1 % [facility] Basophils % 0.5 % [facility] Comment: Test Performed at: [facility] [place], [place] ??[phone] MICHEL LEO DO,MPH 10/02/2015 7:49 AM HEAVY EQUIPMENT FIELD MECHANIC 10/02/2015 7:50 AM HEAVY EQUIPMENT FIELD MECHANIC Yosvany Gonsalez MD LAB - HEMATOLOGY ORD ERABLES [facility] [address] [place] [address] * (ABNORMAL) COMPREHENSIVE METABOLIC PANEL (10/02/2015 7:49 AM HEAVY EQUIPMENT FIELD MECHANIC) Glucose 96 65 - 99 mg/dL [facility] Comment: ? Fasting reference interval BUN 12 7 - 25 mg/dL [facility] Creatinine 0.75 0.70 - 1.25 mg/dL [facility] Comment: For patients >49 years of age, the reference limit for Creatinine is approximately 13% higher for people identified as -[place]. eGFR by MDRD 99 > OR = 60 mL/min/1 .73m2 [facility] eGFR by MDRD 115 > OR = 60 mL/min/1 .73m2 [facility] BUN/Creatinine Ratio NOT APPLICABLE 6 - 22 (calc) [facility] Sodium 139 135 - 146 mmol/L [facility] Potassium 4.3 3.5 - 5.3 mmol/L [facility] Chloride 103 98 - 110 mmol/L [facility] CO2 27 19 - 30 mmol/L [facility] Calcium 9.3 8.6 - 10.3 mg/dL [facility] Protein Total 7.3 6.1 - 8.1 g/dL [facility] Albumin 4.5 3.6 - 5.1 g/dL [facility] Globulin Total 2.8 1.9 - 3.7 g/dL (calc) [facility] Albumin/Globulin Ratio 1.6 1.0 - 2.5 (calc) [facility] Bilirubin Total 0.9 0.2 - 1.2 mg/dL [facility] Alkaline Phosphatase 39(L) 40 - 115 U/L [facility] AST 16 10 - 35 U/L [facility] ALT 16 9 - 46 U/L [facility] Comment: Test Performed at: [facility] [address] [place], [place] ??[phone] MICHEL LEO DO,MPH 10/02/2015 7:49 AM HEAVY EQUIPMENT FIELD MECHANIC 10/02/2015 7:50 AM HEAVY EQUIPMENT FIELD MECHANIC Yosvany Gonsalez MD LAB - CHEMISTRY VIVIANA ADAMS Performing Organization Address City/[facility] Co de Phone Number [facility] [address] [place] [address] * URIC ACID BLOOD (10/02/2015 7:49 AM HEAVY EQUIPMENT FIELD MECHANIC) Uric Acid 6.2 4.0 - 8.0 mg/dL [facility] Comment: Therapeutic target for gout patients: <6.0 mg/dL ?? Test Performed at: [employer] [address] [place], [place] ??[phone] MICHEL LEO DO,MPH 10/02/2015 7:49 AM HEAVY EQUIPMENT FIELD MECHANIC 10/02/2015 7:50 AM HEAVY EQUIPMENT FIELD MECHANIC Yosvany Gonsalez MD LAB - CHEMISTRY VIVIANA ADAMS Performing Organization Address [facility] Co de Phone Number [facility] [address] [place] [address] * LIPID PROFILE (10/02/2015 7:49 AM HEAVY EQUIPMENT FIELD MECHANIC) Cholesterol 177 125 - 200 mg/dL [facility] Comment: Test Performed at: [facility] [address] [place], [place] ??[phone] MICHEL LEO DO,MPH HDL Cholesterol 50 > OR = 40 mg/dL [facility] Triglycerides 120 <150 mg/dL [facility] LDL Calculated 103 <130 mg/dL (calc) [facility] Comment: Desirable range <100 mg/dL for patients with CHD or diabetes and <70 mg/dL for diabetic patients with known heart disease. CHOL/HDLC RATIO 3.5 < OR = 5.0 (calc) [facility] Non HDL Cholesterol 127 mg/dL (calc) [facility] Comment: Target for non-HDL cholesterol is 30 mg/dL higher than LDL cholesterol target. 10/02/2015 7:49 AM HEAVY EQUIPMENT FIELD MECHANIC 10/02/2015 7:50 AM HEAVY EQUIPMENT FIELD MECHANIC Yosvany Gonsalez MD LAB - CHEMISTRY VIVIANA ADAMS Performing Organization Address [facility] Co de Phone Number [facility] [address] [place] [address] documented in this encounter Visit Diagnoses Not on filedocumented in this encounter Care Teams Mill Stenciler Relationship Specialty Start Date End Date Yosvany Gonsalez MD [address] [place] [address] PCP - General Internal Medicine 04/08/13 09/03/19 documented as of this encounter
--- OUTSIDE RECORDS SUMMARY | 2024-11-02 07:32 | XMS_ITS | Encounter Summary ---
Author Organization [facility] Address [address] [place] [address] Care Team Providers Care Locate Technician Name Role Phone Yosvany Gonsalez MD Primary Care Provider [phone] Reason for Visit * Reason Onset Date Comments Patient Education 02/03/2015 Encounter Details Date Type Department Care Team (Late st Contact Info) Description 02/03/2015 Telephone [facility] PATIENT CALL BACK [address] [place] [address] Dandre Cameron, PLUSH FINISHER Patient Education Social History Tobacco Use Types Packs/Day Years [...] on filedocumented in this encounter Care Teams Locate Technician Relationship Specialty Start Date End Date Yosvany Gonsalez MD [address] [place] [phone] PCP - General Internal Medicine 04/08/13 09/03/19 documented as of this encounter
--- OUTSIDE RECORDS SUMMARY | 2024-11-02 07:32 | XMS_ITS | Encounter Summary ---
Author Organization [facility] Address [address] [place] [address] Care Team Providers Care Tools Administrator Name Role Phone Yosvany Gonsalez MD Primary Care Provider [phone] Reason for Visit * Reason Onset Date Comments Opened In Error 01/29/2015 Encounter Details Date Type Department Care Team (Late st Contact Info) Description 01/29/2015 Telephone [facility] Medical [facility] - Family Medicine [address] [phone] Yosvany Gonsalez MD [address] [place] [address] Opened In Error Social History Tobacco Use Types Packs/Day Years [...] encounter Miscellaneous Notes * Telephone Encounter - Stella Norman - 01/29/2015 1:34 PM CDT Wrong provider documented in this encounter Plan of Treatment Not on file documented as of this encounter Visit Diagnoses Not on filedocumented in this encounter Care Teams Tools Administrator Relationship Specialty Start Date End Date Yosvany Gonsalez MD [address] [place] [address] PCP - General Internal Medicine 04/08/13 09/03/19 documented as of this encounter
--- OUTSIDE RECORDS SUMMARY | 2024-11-02 07:32 | XMS_ITS | Encounter Summary ---
Author Organization [facility] Address [address] [place] [address] Care Team Providers Care Federal Agent Name Role Phone Yosvany Gonsalez MD Primary Care Provider [phone] Reason for Visit * Reason Comments Cough Swelling Gland Cold Symptoms Encounter Details Date Type Department Care Team (Late st Contact Info) Description 07/05/2015 11:15 AM CDT Office Visit [facility] [address] [phone] Provider1, [facility] Chronic bronchitis (HCC) (Primary Dx) Social History Tobacco Use Types [...] Sign Reading Time Taken Comments Blood Pressure 132/70 07/05/2015 11:17 AM CDT Pulse 87 07/05/2015 11:17 AM CDT Temperature 36.6 ??C (97.9 ??F) 07/05/2015 11:17 AM C DT Respiratory Rate 20 07/05/2015 11:17 AM CDT Oxygen Saturation 96% 07/05/2015 11:17 AM CDT Inhaled Oxygen Concentration - - Weight 75.3 kg (166 lb) 07/05/2015 11:17 AM CDT Height 170.2 cm (5' 7 ) 07/05/2015 11:17 AM CDT Body Mass Index 26 07/05/2015 11:17 AM CDT documented in this encounter Patient Instructions * Patient Instructions* Tyree Telles PA - 07/05/2015 11:43 AM CDT Images from the original note were not included. Acute Bronchitis WHAT YOU SHOULD KNOW: Acute bronchitis is swelling and irritation in the air passages of your lungs. This irritation may cause you to cough or have other breathing problems. Acute bronchitis often starts because of another viral illness, such as a cold or the flu. The illness spreads from your nose and throat to your windpipe and airways. Bronchitis is often called a chest cold. Acute bronchitis lasts about 2 weeks and is usually not a serious illness. INSTRUCTIONS: Medicines: ?? Ibuprofen or acetaminophen: These medicines help lower a fever. They are available without a doctor's order. Ask your healthcare provider which medicine is right for you. Ask how much to take and how often to take it. Follow directions. These medicines can cause stomach bleeding if not taken correctly. Ibuprofen can cause kidney damage. Do not take ibuprofen if you have kidney disease, an ulcer, or allergies to aspirin. Acetaminophen can cause liver damage. Do not drink alcohol if you take acetaminophen. ?? Cough medicine: This medicine helps loosen mucus in your lungs and make it easier to cough up. This can help you breathe easier. ?? Inhalers: You may need one or more inhalers to help you breathe easier and cough less. An inhaler gives your medicine in a mist form so that you can breathe it into your lungs. Ask your healthcareprovider to show you how to use your inhaler correctly. ?? Steroid medicine: Steroid medicine helps open your air passages so you can breathe easier. ?? Take your medicine as directed. Call your healthcare provider if you think your medicine is not helping or if you have side effects. Tell him if you are allergic to any medicine. Keep a list of the medicines, vitamins, and herbs you take. Include the amounts, and when and why you take them. Bring the list or the pill bottles to follow-up visits. Carry your medicine list with you in case of an emergency. How to use an inhaler: ?? Shake the inhaler well to make sure you get the correct amount of medicine per puff. Remove the cover from your inhaler's mouthpiece. If you are using a spacer, connect your inhaler to the flat end of the spacer. ?? Exhale as much air from your lungs as you can. Put the mouthpiece in your mouth past your front teeth and rest it on the top of your tongue. Do not block the mouthpiece opening with your tongue. ?? Breathe in through your mouth at a slow and steady rate. As you do this, press the inhaler to release the puff of medicine. Finish breathing in slowly and deeply as you inhale the medicine. When your lungs are full, hold your breath for 10 seconds. Then breathe out slowly through puckered lips or through your nose. ?? If you need to take more puffs, wait at least 1 minute between each puff. ?? Rinse your mouth with water after you use the inhaler. This may keep you from getting a mouth infection or irritation. ?? Follow the instructions that come with your inhaler to clean it. You should clean your inhaler at least once a week. Ways to care for yourself: ?? Avoid alcohol: Alcohol dulls your urge to cough and sneeze. When you have bronchitis, you need to be able to cough and sneeze to clear your air passages. Alcohol also causes your body to lose fluid. This can make the mucus in your lungs thicker and harder to cough up. ?? Avoid irritants in the air: Do not smoke or allow others to smoke around you. Avoid chemicals, fumes, and dust. Wear a face mask if you must work around dust or fumes. Stay inside on days when airpollution levels are high. If you have allergies, stay inside when pollen counts are high. Avoid aerosol products. This includes spray-on deodorant, bug spray, and hair spray. ?? Avoid the spread of germs: ?? Wash your hands often with soap and water. Carry germ-killing gel with you. You can use the gel to clean your hands when there is no soap and water available. ?? Do not touch your eyes, [...] as much as possible. ?? Drink more liquids: Most people should drink at least 8 eight-ounce cups of water a day. You mayneed to drink more liquids when you have acute bronchitis. Liquids help keep your air passages moist and help you cough up mucus. ?? Get more rest: You may feel like resting more. Slowly start to do more each day. Rest when you feel it is needed. ?? Eat healthy foods: Eat a variety healthy foods every day. Your diet should include fruits, vegetables, breads, and protein (such as chicken, fish, and beans). Dairy products (such as milk, cheese,and ice cream) can sometimes increase the amount of mucus your body makes. Ask if you should decrease your intake of dairy products. ?? Use a humidifier: Use a cool mist humidifier to increase air moisture in your home. This may make it easier for you to breathe and help decrease your cough. Follow up with your healthcare provider as directed: Write down questions you have so you will remember to ask them during your follow-up visits. Contact your healthcare provider if: ?? You have a fever. ?? Your skin becomes itchy or you have a rash after you take your medicine. ?? Your breathing problems do not go away or get worse. ?? Your cough does not get better with treatment. ?? You cough up blood. ?? You have questions or concerns about your condition or care. Return to the emergency department if: ?? You faint. ?? Your lips or fingernails turn blue. ?? You feel like you are not getting enough air when you breathe. ?? You have swelling of your lips, tongue, or throat that makes it hard to breathe or swallow. ?? 2014 [employer] Information is for End User's use only and may not be sold, redistributed or otherwise used for commercial purposes. All illustrations and images included in CareNotes?? are the copyrighted property of [employer] or [employer]. The above information is an school health aide only. It is not intended as medical advice for individual conditions or treatments. Talk to your doctor, nurse or pharmacist before following any medical regimen to see if it is safe and effective for you. documented in this encounter Progress Notes * Tyree Telles PA - 07/05/2015 11:41 AM CDT Images from the original note were not included. 07/05/2015 PCP: Yosvany Gonsalez (General) CC: Chief Complaint Patient presents with ??? Cough ??? Swelling Gland ??? Cold Symptoms . HPI: Natan Patel is a 59 y.o. male presents today at the [facility] with complaints of productive cough x 5 days. He smokes and gets frequent URI. He wears a CPAP. Past Surgical History Procedure Laterality Date ??? Other surgery dental extraction ??? Hernia repair, inguinal 02/2012 left ??? Knee replacement ??? Colonoscopy 02/04/15 3 polyps removed Family History Problem Relation Age of Onset ??? Hypertension Mother ??? Heart Disease Father ??? Cancer Other Father throat cancer No Known Allergies Review of Systems: Pertinent items are noted in HPI Exam: BP 132/70 mmHg Pulse 87 Temp(Src) 97.9 ??F (Oral) Resp 20 Wt 75.297 kg (166 lb) BMI 25.99kg/m2 SpO2 96% FiO2: BP 132/70 mmHg Pulse 87 Temp(Src) 97.9 ??F (Oral) Resp 20 Wt 75.297 kg (166 lb) BMI 25.99kg/m2 General appearance: alert, cooperative, no distress Ears: canals clear, tympanic membranes normal, hearing intact to voice Throat: no mucous membrane abnormalities Neck: range of motion is intact, no masses, thyroid not enlarged, no adenopathy Heart: regular rhythm, normal S1 and S2, without murmurs, gallops or rubs Lungs: breath sounds normal and symmetric; no rales or wheezes Extremities: no clubbing, cyanosis or edema Impression: ICD-9-CM 1. Chronic bronchitis 491.9 Treatment: Orders Placed This Encounter ??? azithromycin (ZITHROMAX) 250 MG tablet Sig: Take 2 tablets now, then 1 tablet daily for 4 days. Dispense: 6 Tab Refill: 0 ??? benzonatate (TESSALON) 200 MG capsule Sig: Take 1 Cap by mouth 3 times daily as needed for Cough Dispense: 30 Cap Refill: 0 ??? guaifenesin-codeine (ROBITUSSIN AC) 100-10 MG/5ML syrup Sig: Take 10 mL by mouth every 6 hours as needed for Cough Dispense: 180 mL Refill: 0 There are no discontinued medications. Patient Instructions Acute Bronchitis WHAT YOU SHOULD KNOW: Acute bronchitis is swelling and irritation in the air passages of your lungs. This irritation may cause you to cough or have other breathing problems. Acute bronchitis often starts because of another viral illness, such as a cold or the flu. The illness spreads from your nose and throat to your windpipe and airways. Bronchitis is often called a chest cold. Acute bronchitis lasts about 2 weeks and is usually not a serious illness. INSTRUCTIONS: Medicines: ?? Ibuprofen or acetaminophen: These medicines help lower a fever. They are available without a doctor's order. Ask your healthcare provider which medicine is right for you. Ask how much to take and how often to take it. Follow directions. These medicines can cause stomach bleeding if not taken correctly. Ibuprofen can cause kidney damage. Do not take ibuprofen if you have kidney disease, an ulcer, or allergies to aspirin. Acetaminophen can cause liver damage. Do not drink alcohol if you take acetaminophen. ?? Cough medicine: This medicine helps loosen mucus in your lungs and make it easier to cough up. This can help you breathe easier. ?? Inhalers: You may need one or more inhalers to help you breathe easier and cough less. An inhaler gives your medicine in a mist form so that you can breathe it into your lungs. Ask your healthcareprovider to show you how to use your inhaler correctly. ?? Steroid medicine: Steroid medicine helps open your air passages so you can breathe easier. ?? Take your medicine as directed. Call your healthcare provider if you think your medicine is not helping or if you have side effects. Tell him if you are allergic to any medicine. Keep a list of the medicines, vitamins, and herbs you take. Include the amounts, and when and why you take them. Bring the list or the pill bottles to follow-up visits. Carry your medicine list with you in case of an emergency. How to use an inhaler: ?? Shake the inhaler well to make sure you get the correct amount of medicine per puff. Remove the cover from your inhaler's mouthpiece. If you are using a spacer, connect your inhaler to the flat end of the spacer. ?? Exhale as much air from your lungs as you can. Put the mouthpiece in your mouth past your front teeth and rest it on the top of your tongue. Do not block the mouthpiece opening with your tongue. ?? Breathe in through your mouth at a slow and steady rate. As you do this, press the inhaler to release the puff of medicine. Finish breathing in slowly and deeply as you inhale the medicine. When your lungs are full, hold your breath for 10 seconds. Then breathe out slowly through puckered lips or through your nose. ?? If you need to take more puffs, wait at least 1 minute between each puff. ?? Rinse your mouth with water after you use the inhaler. This may keep you from getting a mouth infection or irritation. ?? Follow the instructions that come with your inhaler to clean it. You should clean your inhaler at least once a week. Ways to care for yourself: ?? Avoid alcohol: Alcohol dulls your urge to cough and sneeze. When you have bronchitis, you need to be able to cough and sneeze to clear your air passages. Alcohol also causes your body to lose fluid. This can make the mucus in your lungs thicker and harder to cough up. ?? Avoid irritants in the air: Do not smoke or allow others to smoke around you. Avoid chemicals, fumes, and dust. Wear a face mask if you must work around dust or fumes. Stay inside on days when airpollution levels are high. If you have allergies, stay inside when pollen counts are high. Avoid aerosol products. This includes spray-on deodorant, bug spray, and hair spray. ?? Avoid the spread of germs: ?? Wash your hands often with soap and water. Carry germ-killing gel with you. You can use the gel to clean your hands when there is no soap and water available. ?? Do not touch your eyes, [...] as much as possible. ?? Drink more liquids: Most people should drink at least 8 eight-ounce cups of water a day. You mayneed to drink more liquids when you have acute bronchitis. Liquids help keep your air passages moist and help you cough up mucus. ?? Get more rest: You may feel like resting more. Slowly start to do more each day. Rest when you feel it is needed. ?? Eat healthy foods: Eat a variety healthy foods every day. Your diet should include fruits, vegetables, breads, and protein (such as chicken, fish, and beans). Dairy products (such as milk, cheese,and ice cream) can sometimes increase the amount of mucus your body makes. Ask if you should decrease your intake of dairy products. ?? Use a humidifier: Use a cool mist humidifier to increase air moisture in your home. This may make it easier for you to breathe and help decrease your cough. Follow up with your healthcare provider as directed: Write down questions you have so you will remember to ask them during your follow-up visits. Contact your healthcare provider if: ?? You have a fever. ?? Your skin becomes itchy or you have a rash after you take your medicine. ?? Your breathing problems do not go away or get worse. ?? Your cough does not get better with treatment. ?? You cough up blood. ?? You have questions or concerns about your condition or care. Return to the emergency department if: ?? You faint. ?? Your lips or fingernails turn blue. ?? You feel like you are not getting enough air when you breathe. ?? You have swelling of your lips, tongue, or throat that makes it hard to breathe or swallow. ?? 2015 [employer]. Information is for End User's use only and may not be sold, redistributed or otherwise used for commercial purposes. All illustrations and images included in CareNotes?? are the copyrighted property of [employer] or [employer]. The above information is an school health aide only. It is not intended as medical advice for individual conditions or treatments. Talk to your doctor, nurse or pharmacist before following any medical regimen to see if it is safe and effective for you. Discharge Disposition: 07/05/2015 Time:Home Mode: Ambulatory Condition: Stable Pain: Absent Follow up /Instructions: Follow up with PCP as needed. GERI Kirk documented in this encounter Plan of Treatment Not on file documented as of this encounter Visit Diagnoses Diagnosis Chronic bronchitis (HCC)- Primary documented in this encounter Care Teams Federal Agent Relationship Specialty Start Date End Date Yosvany Gonsalez MD [address] [place] [phone] PCP - General Internal Medicine 04/08/13 09/03/19 documented as of this encounter
--- OUTSIDE RECORDS SUMMARY | 2024-11-02 07:32 | XMS_ITS | Encounter Summary ---
Author Organization [facility] Address [address] [place] [address] Care Team Providers Care Inside Account Representative Name Role Phone Yosvany Gonsalez MD Primary Care Provider Reason for Visit * Reason Onset Date Comments Question 06/23/2015 Encounter Details Date Type Department Care Team (Late st Contact Info) Description 06/23/2015 Telephone [facility] - Family Medicine [address] [phone] Yosvany Gonsalez MD [address] [place] [address] Question Social History Tobacco Use [...] Telephone Encounter - Sarai Richmond RN - 06/24/2015 10:10 AM CDT She called back and I gave her the information about the doses on the vitamins and she voices understanding. * Telephone Encounter - Sarai Richmond RN - 06/23/2015 5:09 PM CDT Tried to call and had to LMOM.She will call me in the morning. * Telephone Encounter - Yosvany Gonsalez MD - 06/23/2015 5:01 PM CDT Vit d 2000 u vit e 400 u daily * Telephone Encounter - Sarai Richmond RN - 06/23/2015 4:44 PM CDT calling to ask about Vitamin D and Vitamin E he is supposed to be taking?Doses,etc?Discussed at last visit. Thank you. documented in this encounter Plan of Treatment Not on file documented as of this encounter Visit Diagnoses Not on filedocumented in this encounter Care Teams Inside Account Representative Relationship Specialty Start Date End Date Yosvany Gonsalez MD [address] [place] [phone] PCP - General Internal Medicine 04/08/13 09/03/19 documented as of this encounter
--- OUTSIDE RECORDS SUMMARY | 2024-11-02 07:32 | XMS_ITS | Encounter Summary ---
Author Organization [facility] Address [address] [place] [address] Care Team Providers Care Commercial Credit Portfolio Manager Name Role Phone Yosvany Gonsalez MD Primary Care Provider [phone] Reason for Visit * Reason Onset Date Comments Question 01/28/2015 Encounter Details Date Type Department Care Team (Late st Contact Info) Description 01/28/2015 Telephone [facility] [address], [address] [place] [address] Ginny Mckeon MD [address] [place] [address] Question Social History Tobacco Use Types Packs/Day [...] encounter Miscellaneous Notes * Telephone Encounter - Jinny Castillo LPN - 01/28/2015 1:17 PM CDT Called analy back. Gave below information. Confirmed fax number said that she will fax over letter . * Telephone Encounter - Jinny Castillo LPN - 01/28/2015 11:41 AM CDT Analy from [facility] called is asking if pt has had 1 a colonoscopy before? If so when and what were results? This patient was referred to me for pre-op evaluation for screening colonoscopy 2 Is it a screening ? Or is having current symptoms? The patient denies abdominal pain, nausea or vomiting or dysphagia. The patient denies bleeding per rectum. 3 Family history of colon cancer or polps The patient has not a family history of colon cancer [phone]- [id number] VM is confidential. documented in this encounter Plan of Treatment Not on file documented as of this encounter Visit Diagnoses Not on filedocumented in this encounter Care Teams Commercial Credit Portfolio Manager Relationship Specialty Start Date End Date Yosvany Gonsalez MD [address] [place] [phone] PCP - General Internal Medicine 04/08/13 09/03/19 documented as of this encounter
--- OUTSIDE RECORDS SUMMARY | 2024-11-02 07:32 | XMS_ITS | Encounter Summary ---
Author Organization [facility] Health Address [address] [place] [address] Care Team Providers Care Certified Novell Administrator Name Role Phone Yosvany Gonsalez MD Primary Care Provider [phone] Reason for Visit * Auth/Cert - Closed Specialty Diagnoses / Procedures Referred By Shelby jama Referred To Contact Diagnoses Encounter for screening colonoscopy Referral ID Status Reason Start Date Expiration Date Visits Re quested Visits Authorized [id number] Closed 1 1 Encounter Details Date Type Department Care Team (Late Contact Info) Description 02/04/2015 8:24 AM CDT - 02/04/2015 12:09 PM CDT Hospital Encounter [facility] [address] [place] [address] [place] [address] [place] [address] [phone] Endoscopy Discharge Disposition: Home or Self Care Social [...] Sign Reading Time Taken Comments Blood Pressure 138/67 02/04/2015 11:36 AM CDT Pulse 69 02/04/2015 11:36 AM CDT Temperature 36.8 ??C (98.3 ??F) 02/04/2015 10:57 AM C DT Respiratory Rate 19 02/04/2015 11:36 AM CDT Oxygen Saturation 98% 02/04/2015 10:57 AM CDT Inhaled Oxygen Concentration - - Weight 74.8 kg (165 lb) 02/04/2015 8:40 AM CDT Height 170.2 cm (5' 7 ) 02/04/2015 8:40 AM CDT Body Mass Index 25.84 02/04/2015 8:40 AM CDT documented in this encounter Medications at Time of Discharge Medication Sig Dispensed Refills Start Date End Date Dextromethorphan-Guaife nesin (MUCINEX DM) 30-600 MG TB12 Take 1 Tab by mouth once daily. 03/19/2015 ezetimibe-simvastatin (VYTORIN) 10-10 MG tablet Take 1 Tab by mouth once daily. 90 Tab 3 09/03/2014 09/21/2015 fluticasone propionate (FLONASE) 50 MCG/ACT nasal spray Energy 2 Sprays into each nostril once daily. 2 Bottle 0 10/15/2014 03/19/2015 loratadine (CLARITIN) 10 MG tablet Take 1 Tab by mouth once daily. 90 Tab 3 10/23/2014 03/19/2015 polyethylene glycol 3350 (MIRALAX) powder Mix Miralax with clear liquid and drink as directed for colon prep. Drink 2L clear liquids after finishing prep. 255 g 0 01/15/2015 02/11/2015 documented as of this encounter H&P Notes * Ginny Mckeon MD - 02/04/2015 9:02 AM CDT The patient was assessed in the PRE-OP area prior to his procedure. The patient feels well and vitals are stable. There has been no new changes since the last note dictated by me. The procedure will go on as planned. Ginny Mckeon MD Gastroenterology * Ginny Mckeon MD - 02/04/2015 9:02 AM CDT [facility] [address] [phone] Note Review MANDIE PATEL : 1955, Sex: M Enc. Date: 01/14/15 Progress Notes Mandie Patel (MR# [id number]) Progress Notes Info Author Note Status Last Update User Last Update Date/Time Ginny Mckeon MD Signed Ginny Mckeon MD 01/14/2015 2:02 PM Progress Notes Expand All Collapse All Date of Service: 01/14/2015 Pt Name: Mandie Patel : 1955 AGE: 59 y.o. SEX: male Referring Provider: Yosvany Gonsalez SUBJECTIVE: Chief Complaint Patient presents with ??? Consultation needs screening colonoscopy History of Present Illness: This patient was referred to me for pre-op evaluation for screening colonoscopy. The patient did not have a colonoscopy prior to today. The patient denies abdominal pain, nausea or vomiting or dysphagia. The patient denies bleeding per rectum. The patientdenies of weight loss or changes in the bowel habitus. The patient has 1-2 bowel movement per day. The patient denies chest pain or shortness of breath. The patient has not a family history of colon cancer. He has a history of inguinal hernia repair in the past. The patient also states that he has a mild history ofGERD but tells me that his symptoms are well controlled on over the counter medicine. He denies dysphagia. Noncompliance with medication? No No Known Allergies Outpatient Prescriptions Prior to Visit Medication Sig Dispense Refill ??? loratadine (CLARITIN) 10 MG tablet Take 1 Tab by mouth once daily. 90 Tab 3 ??? ezetimibe-simvastatin (VYTORIN) 10-10 MG tablet Take 1 Tab by mouth once daily. 90 Tab 3 ??? fluticasone propionate (FLONASE) 50 MCG/ACT nasal spray Energy 2 Sprays into each nostril once daily. 2 Bottle 0 No facility-administered medications prior to visit. Past Medical History Diagnosis Date ??? Allergy ??? Esophageal reflux ??? Chronic airway obstruction ??? Encounter for screening for malignant neoplasm of prostate Past Surgical History Procedure Laterality Date ??? Other surgery dental extraction ??? Hernia repair, inguinal 02/2012 left Family History Problem Relation Age of Onset ??? Hypertension Mother ??? Heart Disease Father ??? Cancer Other Father throat cancer History Social History ??? Marital Status: Spouse Name: N/A Number of Children: 1 ??? Years of Education: 12 Occupational History ??? Social History Main Topics ??? Smoking status: Current Every Day Smoker -- 1.00 packs/day Types: Cigarettes ??? Smokeless tobacco: Never Used ??? Alcohol Use: 3.0 oz/week 6 Cans of beer per week ??? Drug Use: No ??? Sexual Activity: Not on file Other Topics Concern ??? Not on file Social History Narrative Patient was accompanied by : alone ROS: A comprehensive review of systems was negative except as described in HPI. OBJECTIVE: BP 139/84 Pulse 80 Temp(Src) 97 ??F (Oral) Resp 20 Wt 77.111 kg (170 lb) BMI 26.62 kg/m2 PHYSICAL EXAM: BP 139/84 Pulse 80 Temp(Src) 97 ??F (Oral) Resp 20 Wt 77.111 kg (170 lb) BMI 26.62 kg/m2 General appearance: alert, cooperative, no distress Eyes: sclera and conjunctiva clear, EOMI and PERRLA, lids normal Throat: no mucous membrane abnormalities Neck: range [...] no rashes or other abnormalities are noted ASSESSMENT: ICD-9-CM 1. Other specified pre-operative examination V72.83 2. Chronic cough 786.2 PLAN: 1. Arrange screening colonoscopy 2. I informed the patient that should his GERD symptoms worsen and is interested in EGD to notify me. Orders Placed This Encounter ??? polyethylene glycol 3350 (MIRALAX) powder ??? bisACODYL EC (DULCOLAX) 5 MG tablet No Follow-up on file. Ginny Mckeon MD Charhouse Worker documented in this encounter Nursing Notes * Jack Blackmon, RN - 01/29/2015 2:49 PM CDT Instructed patient to have nothing to drink after midnight the night before procedure.Instructed patient to come to the patient entrance the morning of surgery at their scheduled arrival time.Instructed patient must have seasonal delivery driver to take them home after procedure and listen to post -op instructions. Instructed patient not wear any jewelry or bring valuables day of surgery. Patient information from . Patient is at work. Instructions given to . documented in this encounter OR Notes * Operative - Ginny Mckeon MD - 02/04/2015 10:48 AM CDT Colonoscopy Report Date of Service: 02/04/2015 Surgeon: Dr. Jonathan Mckeon Cadd Drafter: None Anasthesia: Per the Anasthesia team Preop diagnosis: screening colonosocpy Postop diagnosis: 3 polyps removed Procedure: Colonoscopy Clinical Information: This patient is 59 year old man here for screening colonosocpy. On examination: The patient was in stable condition Vital signs: BP 148/74 Pulse 75 Resp 23 Wt 165 lb (74.844 kg) BMI 25.84 kg/m2 Abdomen was soft non-distended, non-tender, with present bowel sounds. The procedure: After informed consent was obtained from the patient, and the risks and benefit were discussed in detail with the patient (including perforation, hemorrhage, reactions to the anesthesia medications, and infection); the patient received anesthesia by the Anesthesia team. Digital rectal examination was unremarkable . The colonoscope was inserted through the anal verge where it looked normal . The scope was then advanced into the cecum under direct visualization. The cecal pole was visualized and the terminal ileum was seen and was not intubated. The cecum was reached at a scope distance of 95 cm. The bowel preparation quality was fair . The scope was slowly retracted while examining the entire mucosa carefully. The endoscopic findings were remarkable for 3 polyps removed using a hot snare (5 mm in the rectosigmoid junction and 2X 5 mm rectal polyps removed one of which was removed using the retroflexed position because it was closer to the anal verge). There were no masses, or ulcerations, or active bleeding. The withdrawal time was over 8 minutes. The colonoscope was then retracted under direct visualization into the rectum where a retroflexion examination of the rectum was unremarkable . The scope was then fully removed and the patient tolerated the procedure well and there wereno immediate complications. Blood loss was minimal. Impression: 1. 3 polyps removed Plan: 1. Await the pathology results 2. Follow up in the GI clinic to recommend follow up interval based on the polyp pathology. If tubular adenoma will need repeat colonosocopy in 3 years. Ginny Mckeon MD Gastroenterology documented in this encounter Plan of Treatment Not on file documented as of this encounter Procedures Procedure Name Priority Date/Time Associated Diagnosis Comments GROSS + MICRO EXAM (ILL) Routine 02/04/2015 10:30 AM CDT Screen for colon cancer documented in this encounter Results * GROSS + MICRO EXAM (ILL) (02/04/2015 10:30 AM CDT) Case Report Surgical Pathology Report ? Case: [id number] ? Authorizing Provider: ??Ginny Mckeon MD ? Collected: ? 02/04/2015 10:30 AM ? Ordering Location: ? [facility] ?Received: ?02/04/2015 11:17 AM ? Pathologist: ? Julian Alexis MD ? Specimen: ?Polyp Rectal, x2 ? 02/05/2015 10:13 AM CDT [facility] Final Diagnosis RECTAL POLYPS, COLONOSCOPIC POLYPECTOMY: - HYPERPLASTIC COLONIC POLYPS. - NEGATIVE FOR DYSPLASIA AND MALIGNANCY. KELLYjkarolina 02/05/2015 10:13 AM CDT [facility] Clinical History Collection Date: 02/04/2015 Preoperative Clinical Diagnosis: Screening. Operative Procedure: Colonoscopy Specimen Submitted: Rectal polyp x2. Physician: Dr. Ginny Mckeon 02/05/2015 10:13 AM CDT [facility] Gross Description Received in formalin labeled PiperMandie and rectal polyps , are two erythematous mucosal nodules 0.4 and 0.5 cm in greatest dimension. The base of the larger nodule is marked blue. Both are bisected and submitted in cassette A1. Dora 02/05/2015 10:13 AM CDT [facility] Microscopic Description Microscopic examination is performed and substantiates the above diagnosis. 02/05/2015 10:13 AM CDT [facility] Testing Performed By Performed by [facility] [place]. [address] 02/05/2015 10:13 AM CDT [facility] Pathology/Cytolo gy RECTAL POLYP / Unknown 02/04/2015 10:30 AM CDT 02/04/2015 11:17 AM CDT Ginny Mckeon MD LAB - PATHOLOGY/CYTO LOGY ORDERABLES [facility] [address] documented in this encounter Visit Diagnoses Diagnosis Screen for colon cancer Special screening for malignant neoplasms, colon documented in this encounter Administered Medications Inactive Administered Medications - up to 3 most recent administrations Medication Order MAR Action Action Date Dose Rate Site lactated ringers infusion at 20 mL/hr, Intravenous, PRE-OP CONTINUOUS, Starting on Mon02/04/15 at 0845, Until Mon02/04/15 at 1310, Pre-op $ New Bag/Syringe 02/04/2015 8:55 AM CDT 20 mL/hr documented in this encounter Active and Recently Administered Medications Times are shown in CDT. Continuous Medication Order 02/02/2015 02/03/201502/04/2015 lactated ringers infusion (CANCELED) at 20 mL/hr, Intravenous, PRE-OP CONTINUOUS, Starting on Mon02/04/15 at 0845, Until Mon02/04/15 at 1310, Pre-op 0855 ($ New Bag/Syri nge - Provider: Galina Valle RN)1043 (Anesthesia Volume Adjustment - Provider: Sergey Robledo APRN-FUR VAULT ATTENDANT) documented in this encounter Care Teams Certified Novell Administrator Relationship Specialty Start Date End Date Yosvany Gonsalez MD [address] [phone] PCP - General Internal Medicine 04/08/13 09/03/19 documented as of this encounter
--- OUTSIDE RECORDS SUMMARY | 2024-11-02 07:32 | XMS_ITS | Encounter Summary ---
Author Organization [facility] Address [address] [place] [address] Care Team Providers Care Finish Repairer Name Role Phone Yosvany Gonsalez MD Primary Care Provider [phone] Reason for Visit * Reason Comments Comprehensive Chronic Disease Evaluation Medication Check [facility] Encounter Details Date Type Department Care Team (Late st Contact Info) Description 03/19/2015 4:00 PM CDT Office Visit [facility] Medical [facility] - Family Medicine [address] [place] [phone] Yosvany Gonsalez MD [address] [place] [address] RANDY (obstructive sleep apnea) (Primary Dx); Hyperlipidemia; Nicotine dependence; High risk medications (not anticoagulants) long-term use Social History Tobacco Use Types Packs/Day Years [...] Sign Reading Time Taken Comments Blood Pressure 110/70 03/19/2015 4:13 PM CDT Pulse 95 03/19/2015 4:13 PM CDT Temperature 36.7 ??C (98.1 ??F) 03/19/2015 4:13 PM CD T Respiratory Rate 16 03/19/2015 4:13 PM CDT Oxygen Saturation 96% 03/19/2015 4:13 PM CDT Inhaled Oxygen Concentration - - Weight 77.9 kg (171 lb 12.8 oz) 03/19/2015 4:13 PM CDT Height 170.2 cm (5' 7 ) 03/19/2015 4:13 PM CDT Body Mass Index 26.91 03/19/2015 4:13 PM CDT documented in this encounter Progress Notes * Yosvany Gonsalez MD - 03/19/2015 4:30 PM CDT Date: 03/19/2015 Pt Name: Natan Patel : 1955 AGE: 59 y.o. SEX: male SUBJECTIVE: Chief Complaint Patient presents with ??? Comprehensive Chronic Disease Evaluation ??? Medication Check ??? Sleep Problem here to receive results History of Present Illness: PROBLEMS WITH SNORING, SLEEP ISSUES WORSENING. HR, BP STABLE. COMPLIANTWITH MEDICATIONS , ACTIVE, PAIN CONTROL ADEQUATE, COPING WITH STRESSORS WELL. FATIGUE STABLE. NO SIGNIFICANT CHANGE IN WEIGHT, NO RECENT ISSUES WITH FEVER, CHILLS. ALL MEDICATIONS WITH INSTRUCTIONS REVIEWED AT TODAY'S VISIT Current Outpatient Prescriptions Medication Sig Dispense Refill ??? ezetimibe-simvastatin (VYTORIN) 10-10 MG tablet Take 1 Tab by mouth once daily. 90 Tab 3 No current facility-administered medications for this visit. PATIENT'S ALLERGY, PM,FSH REVIEWED AND EXTRAPOLATED FROM [facility] No Known Allergies Past Medical History [...] Not on file Social History Narrative ROS: Comprehensive review was done HEENT: none, minor sinus drainage, seasonal CV: no obvious problems, denies cp RS: breathing at baseline ABD: diet stable EXT: joint pains stable, denies leg swelling NEURO: no compliants : no complaints PSYCH: stable, more anxious than usual SKIN: Normal OBJECTIVE: WDWN, Alert, No Distress BP 110/70 mmHg Pulse 95 Temp(Src) 98.1 ??F (Oral) Resp 16 Wt 77.928 kg (171 lb 12.8 oz) BMI 26.90 kg/m2 PHYSICAL EXAM: BP 110/70 mmHg Pulse 95 Temp(Src) 98.1 ??F (Oral) Resp 16 Wt 77.928 kg (171 lb 12.8 oz) BMI 26.90 kg/m2 General appearance: alert, cooperative, no distress [...] Recent Results (from the past 1344 hour(s)) GROSS + MICRO EXAM (ILL) Collection Time 02/04/15 10:30 AM Result Value Ref Range Case Report Value: Surgical Pathology Report Case: [id number] Authorizing Provider: Ginny Mckeon MD Collected: 02/04/2015 10:30 AM Ordering Location: [facility] Received: 02/04/2015 11:17 AM Pathologist: Julian Alexis MD Specimen: Polyp Rectal, x2 Final Diagnosis Value: RECTAL POLYPS, COLONOSCOPIC POLYPECTOMY: - HYPERPLASTIC COLONIC POLYPS. - NEGATIVE FOR DYSPLASIA AND MALIGNANCY. /jzr Clinical History Value: Collection Date: 02/04/2015 Preoperative Clinical Diagnosis: Screening. Operative Procedure: Colonoscopy Specimen Submitted: Rectal polyp x2. Physician: Dr. Ginny Mckeon Gross Description Value: Received in formalin labeled Natan Patel and rectal polyps , are two erythematous mucosalnodules 0.4 and 0.5 cm in greatest dimension. The base of the larger nodule is marked blue. Both are bisected and submitted in cassette A1. /jzr Microscopic Description Value: Microscopic examination is performed and substantiates the above diagnosis. Testing Performed By Value: Performed by [facility] [place]. [address] ASSESSMENT: ICD-9-CM 1. RANDY (obstructive sleep apnea) 327.23 CPAP/BIPAP TITRATION 2. Hyperlipidemia 272.4 3. Nicotine dependence 305.1 4. High risk medications (not anticoagulants) long-term use V58.69 PLAN: Orders Placed This Encounter ??? CPAP/BIPAP TITRATION Return if symptoms worsen or fail to improve. RECENT COMPREHENSIVE SET OF LABS INCLUDING CBC, CMP, FBS ETC WERE ALL REVIEWED, DEVIATION FROM NORMAL NOTED, QUESTIONS, CONCERNS WERE ADDRESSED . USE OF CURRENT PRESCRIPTION MEDICATIONS, IT'S MANAGEMENT AND IMPACT ON PATIENT'S HEALTH DISCUSSED. CPAP / BIPAP TITRATION AND FOLLOW, SLEEP STUDY REVIEWED. Yosvany Gonsalez MD documented in this encounter Plan of Treatment Not on file documented as of this encounter Visit Diagnoses Diagnosis RANDY (obstructive sleep apnea)- Primary Obstructive sleep apnea (adult) (pediatric) Hyperlipidemia Other and unspecified hyperlipidemia Nicotine dependence Tobacco use disorder High risk medications (not anticoagulants) long-term use Encounter for long-term (current) use of other medications documented in this encounter Care Teams Finish Repairer Relationship Specialty Start Date End Date Yosvany Gonsalez MD [address] [place] [address] [place] [phone] PCP - General Internal Medicine 04/08/13 09/03/19 documented as of this encounter
--- OUTSIDE RECORDS SUMMARY | 2024-11-02 07:32 | XMS_ITS | Encounter Summary ---
Author Organization [facility] Address [address] [place] [address] Care Team Providers Care Saw Feeder Name Role Phone Yosvany Gonsalez MD Primary Care Provider [phone] Reason for Visit * Reason Comments Comprehensive Chronic Disease Evaluation Medication Check Fatigue look over RANDY result s and machine discussion Encounter Details Date Type Department Care Team (Latest Contact Info) Description 06/19/2015 4:15 PM CDT Office Visit [facility] - Family Medicine [address] [place] [phone] Yosvany Gonsalez MD [address] [place] [address] Hyperlipidemia (Primary Dx); Nicotine dependence; Special screening for malignant neoplasm of prostate; High risk medications (not anticoagulants) long-term use; Annual physical exam; RANDY (obstructive sleep apnea) Social History Tobacco Use Types Packs/Day Years [...] Sign Reading Time Taken Comments Blood Pressure 117/75 06/19/2015 4:17 PM CDT Pulse 78 06/19/2015 4:17 PM CDT Temperature 36.1 ??C (97 ??F) 06/19/2015 4:17 PM CDT Respiratory Rate 16 06/19/2015 4:17 PM CDT Oxygen Saturation 99% 06/19/2015 4:17 PM CDT Inhaled Oxygen Concentration - - Weight 76.5 kg (168 lb 9.6 oz) 06/19/2015 4:17 P M CDT Height 170.2 cm (5' 7 ) 06/19/2015 4:17 PM CDT Body Mass Index 26.41 06/19/2015 4:17 PM CDT documented in this encounter Progress Notes * Yosvany Gonsalez MD - 06/19/2015 4:31 PM CDT Date: 06/19/2015 Pt Name: Natan Patel : 1955 AGE: 59 y.o. SEX: male SUBJECTIVE: Chief Complaint Patient presents with ??? Comprehensive Chronic Disease Evaluation ??? Medication Check ??? Fatigue look over RANDY results and machine discussion History of Present Illness: RANDY : TITRATION DONE, WAITING FOR UNIT, FEELING BETTER LIPIDS : WATCHING DIET, ON STATINS TOB ABUSE : EDUCATED PT MULTIPLE CHRONIC MEDICAL CONDITIONS ENUMERATED BELOW. COMPLIANT WITH MEDICATIONS , ACTIVE, PAIN CONTROL [...] PATIENT'S ALLERGY, PM,FSH REVIEWED AND EXTRAPOLATED FROM [facility] No Known Allergies Past Medical History Diagnosis [...] Normal OBJECTIVE: WDWN, Alert, No Distress BP 117/75 mmHg Pulse 78 Temp(Src) 97 ??F (Oral) Resp 16 Wt 76.476 kg (168 lb 9.6 oz) BMI 26.40 kg/m2 PHYSICAL EXAM: BP 117/75 mmHg Pulse 78 Temp(Src) 97 ??F (Oral) Resp 16 Wt 76.476 kg (168 lb 9.6 oz) BMI 26.40 kg/m2 General appearance: alert, cooperative, no distress [...] visit (from the past 1344 hour(s)). ASSESSMENT: ICD-9-CM 1. Hyperlipidemia 272.4 CBC W AUTO DIFFERENTIAL COMPREHENSIVE METABOLIC PANEL LIPID PROFILE TSH HEMOGLOBIN A1C PROSTATE SPECIFIC ANTIGEN SCREEN URIC ACID BLOOD 2. Nicotine dependence 305.1 CBC W AUTO DIFFERENTIAL COMPREHENSIVE METABOLIC PANEL LIPID PROFILE TSH HEMOGLOBIN A1C PROSTATE SPECIFIC ANTIGEN SCREEN URIC ACID BLOOD 3. Special screening for malignant neoplasm of prostate V76.44 CBC W AUTO DIFFERENTIAL COMPREHENSIVE METABOLIC PANEL LIPID PROFILE TSH HEMOGLOBIN A1C PROSTATE SPECIFIC ANTIGEN SCREEN URIC ACID BLOOD 4. High risk medications (not anticoagulants) long-term use V58.69 CBC W AUTO DIFFERENTIAL COMPREHENSIVE METABOLIC PANEL LIPID PROFILE TSH HEMOGLOBIN A1C PROSTATE SPECIFIC ANTIGEN SCREEN URIC ACID BLOOD 5. Annual physical exam V70.0 CBC W AUTO DIFFERENTIAL COMPREHENSIVE METABOLIC PANEL LIPID PROFILE TSH HEMOGLOBIN A1C PROSTATE SPECIFIC ANTIGEN SCREEN URIC ACID BLOOD 6. RANDY (obstructive sleep apnea) 327.23 CBC W AUTO DIFFERENTIAL COMPREHENSIVE METABOLIC PANEL LIPID PROFILE TSH HEMOGLOBIN A1C PROSTATE SPECIFIC ANTIGEN SCREEN URIC ACID BLOOD PLAN: Orders Placed This Encounter ??? CBC W AUTO DIFFERENTIAL ??? COMPREHENSIVE METABOLIC PANEL ??? LIPID PROFILE ??? TSH ??? HEMOGLOBIN A1C ??? PROSTATE SPECIFIC ANTIGEN SCREEN ??? URIC ACID BLOOD Return in about 4 months (around 10/19/2015). RECENT COMPREHENSIVE SET OF LABS INCLUDING CBC, CMP, FBS ETC WERE ALL REVIEWED, DEVIATION FROM NORMAL NOTED, QUESTIONS, CONCERNS WERE ADDRESSED . USE OF CURRENT PRESCRIPTION MEDICATIONS, IT'S MANAGEMENT AND IMPACT ON PATIENT'S HEALTH DISCUSSED. RPT STUDIES, USE OF CPAP REVIEWED, AND FOLLOW. Yosvany Gonsalez MD documented in this encounter Plan of Treatment Not on file documented as of this encounter Visit Diagnoses Diagnosis Hyperlipidemia- Primary Other and unspecified hyperlipidemia Nicotine dependence Tobacco use disorder Special screening for malignant neoplasm of prostate High risk medications (not anticoagulants) long-term use Encounter for long-term (current) use of other medications Annual physical exam Routine general medical examination at a [facility] care facility RANDY (obstructive sleep apnea) Obstructive sleep apnea (adult) (pediatric) documented in this encounter Care Teams Saw Feeder Relationship Specialty Start Date End Date Yosvany Gonsalez MD [address] [place] [phone] PCP - General Internal Medicine 04/08/13 09/03/19 documented as of this encounter
--- OUTSIDE RECORDS SUMMARY | 2024-11-02 07:32 | XMS_ITS | Encounter Summary ---
Author Organization [facility] Address [address] [place] [address] Care Team Providers Care Senior Search Marketing Analyst Name Role Phone Yosvany Gonsalez MD Primary Care Provider [phone] Reason for Visit * Auth/Cert - Closed Specialty Diagnoses / Procedures Referred By Shelby jama Referred To Contact Diagnoses Encounter for screening colonoscopy Referral ID Status Reason Start Date Expiration Date Visits Re quested Visits Authorized [id number] Closed 1 1 Encounter Details Date Type Department Care Team (Late st Contact Info) Description 02/04/2015 10:09 AM CDT Anesthesia Event [facility] - Endoscopy 1 [place] [address] Richy Segovia MD 2 [place] [address] Sergey Robledo, DIRECTOR OF OPTIMIZATION-TESTING MANAGER #[address] [place] [address] Anesthesia Record Procedure Summary Procedure Name Responsible Anesthesiologist Anesthesia Start Time Anesthesia Stop Time COLONOSCOPY 02/04/15 1009 02/04/15 1050 Events Date Time Event Comment 02/04/2015 0839 1009 An Start 1009 An Start Data 1009 PT Reassessment Patient and Vital Signs reassessed prior to induction. 1009 Elect Sign The providers l isted as staff are the responsible providers for the case. 1017 an alejandro now 1045 an stop data 1050 An Stop Meds Name Total glycopyrrolate (ROBINUL) 0.2 mg/ml injec tion 0.2 mg lidocaine 1% PF injection (10 mg/mL) 5 m L propofol (DIPRIVAN) injection 10mg/ml (E NDO USE) 40 mL lactated ringers infusion 800 mL 0.9% NaCl infusion 0 mL * Agents Name O2 * Blood No blood administrations on file. Lines, Drains, and Airways Type Details Placement Removal Peripheral IV Date: 02/04/15; Time : 851; Orientation: Right; Placed By: eliza joseph rn; Tolerance: Well 02/04/15 0852 by Galina Valle RN 02/04/15 1100 by Eliza Joseph RN documented in this encounter Social History Tobacco [...] as of this encounter Progress Notes * Richy Segovia MD - 02/04/2015 11:17 AM CDT ANESTHESIA POSTPROCEDURE EVALUATION Natan Patel is a 59 y.o. male Temp: 36.8 ??C Pulse: 66 Resp: 16 BP: 104/66 mmHg SpO2: 98 % Pain Rating Score #1: 4 Anesthesia Type: MAC Mental status: sufficiently recovered from acute administration of anesthesia to participate in theevaluation. Level of consciousness: awake General appearance: in no acute distress Respiratory function: natural airway. Cardiac: stable Pain: comfortable/acceptable PONV: None Postop hydration: adequate. Patient may be released from anesthesia care. A postop evaluation was performed on this patient with the following assessment: no apparent anesthesia complications documented in this encounter Consult Notes * Richy Segovia MD - 02/04/2015 8:39 AM CDT Pre-anesthesia Evaluation * No procedures listed * Vital Signs: BMI: Estimated body mass index is 24.33 kg/(m^2) as calculated from the following: Height as of this encounter: 1.727 m (5' 8 ). Weight as of this encounter: 72.576 kg (160 lb). History: Past Medical History Diagnosis Date ??? Allergy ??? Esophageal reflux ??? Chronic airway obstruction ??? Encounter for screening for malignant neoplasm of prostate Past Surgical History Procedure Laterality Date ??? Other surgery dental extraction ??? Hernia repair, inguinal 02/2012 left ??? Knee replacement reports that he has been smoking Cigarettes. He has been smoking about 1.00 pack per day. He has never used smokeless tobacco. He reports that he drinks about 3.0 ounces of alcohol per week. He reports that he does not use illicit drugs. Allergies: has No Known Allergies. Medications: Prescriptions prior to admission Medication Sig Dispense Refill ??? polyethylene glycol 3350 (MIRALAX) powder Mix Miralax with clear liquid and drink as directed for colon prep. Drink 2L clear liquids after finishing prep. 255 g 0 ??? Dextromethorphan-Guaifenesin (MUCINEX DM) 30-600 MG TB12 Take 1 Tab by mouth once daily. ??? loratadine (CLARITIN) 10 MG tablet Take 1 Tab by mouth once daily. 90 Tab 3 ??? fluticasone propionate (FLONASE) 50 MCG/ACT nasal spray [place] 2 Sprays into each nostril once daily. 2 Bottle 0 ??? ezetimibe-simvastatin (VYTORIN) 10-10 MG tablet Take 1 Tab by mouth once daily. 90 Tab 3 No current facility-administered medications on file prior to encounter. Current Outpatient Prescriptions on File Prior to Encounter Medication Sig Dispense Refill ??? polyethylene glycol 3350 (MIRALAX) powder Mix Miralax with clear liquid and drink as directed for colon prep. Drink 2L clear liquids after finishing prep. 255 g 0 ??? Dextromethorphan-Guaifenesin (MUCINEX DM) 30-600 MG TB12 Take 1 Tab by mouth once daily. ??? loratadine (CLARITIN) 10 MG tablet Take 1 Tab by mouth once daily. 90 Tab 3 ??? fluticasone propionate (FLONASE) 50 MCG/ACT nasal spray [place] 2 Sprays into each nostril once daily. 2 Bottle 0 ??? ezetimibe-simvastatin (VYTORIN) 10-10 MG tablet Take 1 Tab by mouth once daily. 90 Tab 3 Physical Exam: NPO status: no solids since midnight, no liquids within 2 hours Oriented to person, place and time Airway: I Neck ROM: full Dental exam findings: dentures upper Negative for anesthesia complications Positive for gastroesophageal reflux disease, well controlled Positive for snoring Reviewed labs Patient history unchanged. Plan for Anesthesia: ASA Score: 2. Anesthesia plan: MAC Planned method of induction: intravenous Planned postop destination: endo Anesthesia plan, risks and benefits discussed with patient Anesthesia consent: obtained Plan accepted yes Discussed anesthesia plan with: TESTING MANAGER. documented in this encounter Plan of Treatment Not on file documented as of this encounter Visit Diagnoses Not on filedocumented in this encounter Administered Medications Inactive Administered Medications - up to 3 most recent administrations Medication Order MAR Action Action Date Dose Rate Site glycopyrrolate (ROBINUL) injection PRN, Starting on Mon02/04/15 at 1010, Until Mon02/04/15 at 1055, Anesthesia Intra-op $ Given 02/04/2015 10:10 AM CDT 0.2 mg lidocaine (XYLOCAINE MPF) 1 % injection PRN, Starting on Mon02/04/15 at 1011, Until Mon02/04/15 at 1055, Anesthesia Intra-op $ Given 02/04/2015 10:11 AM CDT 5 mL propofol (DIPRIVAN) injection CONTINUOUS PRN, Starting on Mon02/04/15 at 1011, Until Mon02/04/15 at 1055, Anesthesia Intra-op $ New Bag/Syringe 02/04/2015 10:11 AM CDT documented in this encounter Care Teams Senior Search Marketing Analyst Relationship Specialty Start Date End Date Yosvany Gonsalez MD [address] [place] [phone] PCP - General Internal Medicine 04/08/13 09/03/19 documented as of this encounter
--- OUTSIDE RECORDS SUMMARY | 2024-11-02 07:32 | XMS_ITS | Encounter Summary ---
Author Organization [facility] Address [address] [place] [address] Care Team Providers Care Blocker Heated Metal Forms Name Role Phone Yosvany Gonsalez MD Primary Care Provider [phone] Reason for Visit * Reason Comments Follow-up 02/04=colonoscopy Encounter Details Date Type Department Care Team (Late st Contact Info) Description 02/11/2015 2:15 PM CDT Office Visit [facility] - GI [address] [facility], [address] [place] [address] Ginny Mckeon MD [address] [place] [address] Colorectal polyps (Primary Dx); Annual physical exam Social History Tobacco Use Types Packs/Day Years [...] Sign Reading Time Taken Comments Blood Pressure 126/83 02/11/2015 2:30 PM CDT Pulse 83 02/11/2015 2:30 PM CDT Temperature 35.9 ??C (96.6 ??F) 02/11/2015 2:30 PM CD T Respiratory Rate 20 02/11/2015 2:30 PM CDT Oxygen Saturation 97% 02/11/2015 2:30 PM CDT Inhaled Oxygen Concentration - - Weight 77.1 kg (170 lb) 02/11/2015 2:30 PM CDT Height 170.2 cm (5' 7 ) 02/11/2015 2:30 PM CDT Body Mass Index 26.63 02/11/2015 2:30 PM CDT documented in this encounter Patient Instructions * Patient Instructions* Ginny Mckeon MD - 02/11/2015 4:39 PM CDT Repeat colonoscopy in 5-10 years documented in this encounter Progress Notes * Ginny Mckeon MD - 02/11/2015 4:36 PM CDT Date of Service: 02/11/2015 Pt Name: Natan Patel : 1955 AGE: 59 y.o. SEX: male Referring Provider: Yosvany Gonsalez SUBJECTIVE: Chief Complaint Patient presents with ??? Follow-up 02/04=colonoscopy History of Present Illness: This patient returns for follow up after he had his procedure which wasscreening colonosocpy. The findings were 3 small polyps. The pathology finding was hyperplastic polyps. The patient Denies abdominal pain. The patient Denies blood in the stool. The patient Denies nausea and vomiting. The patient Denies chest pain or shortness of breath. I discussed with the patient the procedure findings and advised the appropriate follow up. Noncompliance with medication? No No Known Allergies Outpatient Prescriptions Prior to Visit Medication Sig Dispense Refill ??? Dextromethorphan-Guaifenesin (MUCINEX DM) 30-600 MG TB12 Take 1 Tab by mouth once daily. ??? loratadine (CLARITIN) 10 MG tablet Take 1 Tab by mouth once daily. 90 Tab 3 ??? ezetimibe-simvastatin (VYTORIN) 10-10 MG tablet Take 1 Tab by mouth once daily. 90 Tab 3 ??? polyethylene glycol 3350 (MIRALAX) powder Mix Miralax with clear liquid and drink as directed for colon prep. Drink 2L clear liquids after finishing prep. 255 g 0 ??? fluticasone propionate (FLONASE) 50 MCG/ACT nasal spray [place] 2 Sprays into each nostril once daily. [...] Patient was accompanied by : alone ROS: Pertinent items are noted in HPI OBJECTIVE: BP 126/83 Pulse 83 Temp(Src) 96.6 ??F (Oral) Resp 20 Wt 77.111 kg (170 lb) BMI 26.62 kg/m2 PHYSICAL EXAM: BP 126/83 Pulse 83 Temp(Src) 96.6 ??F (Oral) Resp 20 Wt 77.111 kg (170 lb) BMI 26.62 kg/m2 General appearance: alert, cooperative, no distress Heart: regular rhythm, normal S1 and S2, without murmurs, rubs or gallops Lungs: breath sounds normal and symmetric; no rales or wheezes Abdomen: soft, non-distended, non-tender, bowel sounds present, no rebound tenderness, no hepatosplenomegaly noted. Extremities: no clubbing, cyanosis or edema ASSESSMENT: ICD-9-CM 1. Colorectal polyps 211.3 2. Annual physical exam V70.0 PLAN: 1. Due to the relatively benign pathology of the polyps. I suggest repeating the colonoscopy in 5-10 years or sooner if the patient develops symptoms or positive family history. 2. Thank you for involving me in the care of your patient. Ginny Mcekon MD Instructional Coordinator documented in this encounter Plan of Treatment Not on file documented as of this encounter Visit Diagnoses Diagnosis Colorectal polyps- Primary Benign neoplasm of colon Annual physical exam Routine general medical examination at a health care facility documented in this encounter Care Teams Blocker Heated Metal Forms Relationship Specialty Start Date End Date Yosvany Gonsalez MD [address] [phone] PCP - General Internal Medicine 04/08/13 09/03/19 documented as of this encounter
--- OUTSIDE RECORDS SUMMARY | 2024-11-02 07:32 | XMS_ITS | Encounter Summary ---
Author Organization [facility] Address [address] [place] [address] Care Team Providers Care Craps Dealer Name Role Phone Yosvany Gonsalez MD Primary Care Provider [phone] Reason for Visit * Reason Onset Date Comments Refill Request 01/29/2015 Encounter Details Date Type Department Care Team (Late st Contact Info) Description 01/29/2015 Telephone [facility] - [address] [facility], [address] [place] [address] [place] [address] [place] [phone] Refill Request Social History Tobacco Use Types [...] encounter Miscellaneous Notes * Telephone Encounter - Perla Rodriguez - 01/29/2015 1:50 PM CDT Prescription for Miralax called to pharmacy for colon prep. * Telephone Encounter - Stella Norman - 01/29/2015 1:35 PM CDT called said pharm did not get req for the miralax please resend documented in this encounter Plan of Treatment Not on file documented as of this encounter Visit Diagnoses Not on filedocumented in this encounter Care Teams Craps Dealer Relationship Specialty Start Date End Date Yosvany Gonsalez MD [address] [place] [phone] PCP - General Internal Medicine 04/08/13 09/03/19 documented as of this encounter
--- OUTSIDE RECORDS SUMMARY | 2024-11-02 07:33 | XMS_ITS | Encounter Summary ---
Author Organization [facility] Address [address] [place] [address] Care Team Providers Care Nuclear Station Operator Name Role Phone Yosvany Gonsalez MD Primary Care Provider [phone] Reason for Visit * Reason Onset Date Comments Imm Inj 10/06/2014 Encounter Details Date Type Department Care Team (Late st Contact Info) Description 10/06/2014 7:15 AM COMIC BOOK DESIGNER Office Visit [facility] [address] [phone] Need for prophylactic vaccination and inoculation against influenza (Primary Dx) Social History Tobacco Use Types [...] as of this encounter Progress Notes * Nadya Paul RN - 10/06/2014 7:25 AM CST Patient presents today for administration of flu shot. C BOOK DESIGNER documented in this encounter Plan of Treatment Not on file documented as of this encounter Visit Diagnoses Diagnosis Need for prophylactic vaccination and inoculation against influenza- Primary documented in this encounter Care Teams Nuclear Station Operator Relationship Specialty Start Date End Date Yosvany Gonsalez MD [address] [place] [address] [place] [phone] PCP - General Internal Medicine 04/08/13 09/03/19 documented as of this encounter
--- OUTSIDE RECORDS SUMMARY | 2024-11-02 07:33 | XMS_ITS | Encounter Summary ---
Author Organization [facility] Address [address] [place] [address] Care Team Providers Care Slip Injector And Applicator Name Role Phone Yosvany Gonsalez MD Primary Care Provider [phone] Reason for Visit * Reason Comments Follow-up 6 week f/u discuss c hest xray Encounter Details Date Type Department Care Team (Late st Contact Info) Description 12/05/2014 1:30 PM RAW MATERIAL HANDLER Office Visit [facility] - Family Medicine [address] [place] [phone] Yosvany Gonsalez MD [address] [place] [address] RANDY (obstructive sleep apnea) (Primary Dx); Nicotine dependence; Chronic cough; Annual physical exam; High risk medications (not anticoagulants) long-term use; Special screening for malignant neoplasm of prostate; Screen for colon cancer Social History Tobacco Use Types Packs/Day Years [...] Sign Reading Time Taken Comments Blood Pressure 132/80 12/05/2014 1:41 PM RAW MATERIAL HANDLER Pulse 82 12/05/2014 1:41 PM RAW MATERIAL HANDLER Temperature - - Respiratory Rate 14 12/05/2014 1:41 PM RAW MATERIAL HANDLER Oxygen Saturation 99% 12/05/2014 1:41 PM RAW MATERIAL HANDLER Inhaled Oxygen Concentration - - Weight 77.2 kg (170 lb 3.2 oz) 12/05/2014 1:41 P M RAW MATERIAL HANDLER Height 177.8 cm (5' 10 ) 12/05/2014 1:41 PM RAW MATERIAL HANDLER Body Mass Index 24.42 12/05/2014 1:41 PM RAW MATERIAL HANDLER documented in this encounter Progress Notes * Yosvany Gonsalez MD - 12/05/2014 2:05 PM CST Date: 12/05/2014 Pt Name: Natan Patel : 1955 AGE: 59 y.o. SEX: male SUBJECTIVE: Chief Complaint Patient presents with ??? Follow-up 6 week f/u discuss chest xray History of Present Illness: LOUD SNORING, WITNESSED APNEIC SPELLS, WILLING TO DO HOME SLEEP STUDY. HR, BP STABLE, CONT TO SMOKE. COMPLIANT WITH MEDICATIONS , ACTIVE, PAIN CONTROL ADEQUATE, COPING WITH STRESSORS WELL. NO CHANGE IN ENERGY LEVELS, NO SIGNIFICANT CHANGE IN WEIGHT, NO RECENT ISSUES WITHFEVER, CHILLS. ALL MEDICATIONS WITH INSTRUCTIONS REVIEWED AT TODAY'S VISIT No Known Allergies Current Outpatient Prescriptions Medication Sig Dispense Refill ??? loratadine (CLARITIN) 10 MG tablet Take 1 Tab by mouth once daily. 90 Tab 3 ??? fluticasone propionate (FLONASE) 50 MCG/ACT nasal spray [place] 2 Sprays into each nostril once daily. [...] extraction ??? Hernia repair, inguinal 02/2012 left History Social History ??? Marital Status: Spouse [...] more anxious than usual SKIN: Normal OBJECTIVE: BP 132/80 Pulse 82 Resp 14 Wt 77.202 kg (170 lb 3.2 oz) BMI 24.42 kg/m2 PHYSICAL EXAM: BP 132/80 Pulse 82 Resp 14 Wt 77.202 kg (170 lb 3.2 oz) BMI 24.42 kg/m2 General appearance: alert, cooperative, no distress [...] preserved. No active inflammation, effusion noted. Skin: no rashes or other abnormalities are noted Neurologic: mental status normal; speech, language, affect at baseline. Alert and oriented X 3; Cranial nerves II - XII are grossly intact, motor , sensory, cerebellar exam at baseline, no apparent deficits No results found for this or any previous visit (from the past 1008 hour(s)). ASSESSMENT: ICD-9-CM 1. RANDY (obstructive sleep apnea) 327.23 HOME SLEEP STUDY 2. Nicotine dependence 305.1 CBC W AUTO DIFFERENTIAL COMPREHENSIVE METABOLIC PANEL LIPID PROFILE TSH HEMOGLOBIN A1C PROSTATE SPECIFIC ANTIGEN SCREEN URIC ACID BLOOD AMB REFERRAL TO GASTROENTEROLOGY 3. Chronic cough 786.2 CBC W AUTO DIFFERENTIAL COMPREHENSIVE METABOLIC PANEL LIPID PROFILE TSH HEMOGLOBIN A1C PROSTATE SPECIFIC ANTIGEN SCREEN URIC ACID BLOOD AMB REFERRAL TO GASTROENTEROLOGY 4. Annual physical exam V70.0 CBC W AUTO DIFFERENTIAL COMPREHENSIVE METABOLIC PANEL LIPID PROFILE TSH HEMOGLOBIN A1C PROSTATE SPECIFIC ANTIGEN SCREEN URIC ACID BLOOD 5. High risk medications (not anticoagulants) long-term use V58.69 CBC W AUTO DIFFERENTIAL COMPREHENSIVE METABOLIC PANEL LIPID PROFILE TSH HEMOGLOBIN A1C PROSTATE SPECIFIC ANTIGEN SCREEN URIC ACID BLOOD HOME SLEEP STUDY 6. Special screening for malignant neoplasm of prostate V76.44 CBC W AUTO DIFFERENTIAL COMPREHENSIVE METABOLIC PANEL LIPID PROFILE TSH HEMOGLOBIN A1C PROSTATE SPECIFIC ANTIGEN SCREEN URIC ACID BLOOD 7. Screen for colon cancer V76.51 AMB REFERRAL TO GASTROENTEROLOGY PLAN: Orders Placed This Encounter ??? CBC W AUTO DIFFERENTIAL ??? COMPREHENSIVE METABOLIC PANEL ??? LIPID PROFILE ??? TSH ??? HEMOGLOBIN A1C ??? PROSTATE SPECIFIC ANTIGEN SCREEN ??? URIC ACID BLOOD ??? AMB REFERRAL TO GASTROENTEROLOGY ??? HOME SLEEP STUDY Return in about 6 months (around 06/04/2015). RECENT COMPREHENSIVE SET OF LABS INCLUDING CBC, CMP, FBS ETC WERE ALL REVIEWED, DEVIATION FROM NORMAL NOTED, QUESTIONS, CONCERNS WERE ADDRESSED . USE OF CURRENT MEDICATIONS AND IMPACT ON PATIENT'S HEALTH DISCUSSED. HOME SLEEP STUDY, GI SCREENING SCOPE, RPT STUDIES AND FOLLOW. Yosvany Gonsalez MD MATERIAL HANDLER documented in this encounter Plan of Treatment Not on file documented as of this encounter Visit Diagnoses Diagnosis RANDY (obstructive sleep apnea)- Primary Obstructive sleep apnea (adult) (pediatric) Nicotine dependence Tobacco use disorder Chronic cough Cough Annual physical exam Routine general medical examination at a health care facility High risk medications (not anticoagulants) long-term use Encounter for long-term (current) use of other medications Special screening for malignant neoplasm of prostate Screen for colon cancer Special screening for malignant neoplasms, colon documented in this encounter Care Teams Slip Injector And Applicator Relationship Specialty Start Date End Date Yosvany Gonsalez MD [address] [phone] PCP - General Internal Medicine 04/08/13 09/03/19 documented as of this encounter
--- OUTSIDE RECORDS SUMMARY | 2024-11-02 07:33 | XMS_ITS | Encounter Summary ---
Author Organization [facility] Address [address] [place] [address] Care Team Providers Care Tower Air Traffic Control Specialist Name Role Phone Yosvany Gonsalez MD Primary Care Provider [phone] Reason for Visit * Reason Comments Yearly Lump/pain Axilla right also has a spo t on right lower arm Cough productive clear wor se in the mornings Encounter Details Date Type Department Care Team (Late st Contact Info) Description 10/15/2014 4:15 PM FAC ENGINEER Office Visit [facility] - Family Medicine [address], [place] [address] Yosvany Gonsalez MD [address] [place] [address] Annual physical exam (Primary Dx); Hyperlipidemia; Nicotine dependence; Special screening for malignant neoplasm of prostate; High risk medications (not anticoagulants) long-term use; Chronic cough Social History Tobacco Use Types Packs/Day Years [...] Sign Reading Time Taken Comments Blood Pressure 118/74 10/15/2014 4:24 PM FAC ENGINEER Pulse 88 10/15/2014 4:24 PM FAC ENGINEER Temperature - - Respiratory Rate 20 10/15/2014 4:24 PM FAC ENGINEER Oxygen Saturation 99% 10/15/2014 4:24 PM FAC ENGINEER Inhaled Oxygen Concentration - - Weight 77.3 kg (170 lb 6.4 oz) 10/15/2014 4:24 P M FAC ENGINEER Height 170.2 cm (5' 7 ) 10/15/2014 4:24 PM FAC ENGINEER Body Mass Index 26.69 10/15/2014 4:24 PM FAC ENGINEER documented in this encounter Progress Notes * Yosvany Gonsalez MD - 10/15/2014 6:06 PM CST Date: 10/15/2014 Pt Name: Natan Patel : 1955 AGE: 59 y.o. SEX: male SUBJECTIVE: Chief Complaint Patient presents with ??? Yearly ??? Lump/pain Axilla right also has a spot on right lower arm ??? Cough productive clear worse in the mornings History of Present Illness: ANNUAL WELLNESS CHECK, DRY COUGH, SINUS DRAINAGE, CONT TO SMOKE HEAVILY. COMPLIANT WITH MEDICATIONS , ACTIVE, PAIN CONTROL [...] fluticasone propionate (FLONASE) 50 MCG/ACT nasal spray [place] 2 Sprays into each nostril once daily. [...] anxious than usual SKIN: Normal OBJECTIVE: BP 118/74 Pulse 88 Resp 20 Wt 77.293 kg (170 lb 6.4 oz) BMI 26.68 kg/m2 PHYSICAL EXAM: BP 118/74 Pulse 88 Resp 20 Wt 77.293 kg (170 lb 6.4 oz) BMI 26.68 kg/m2 General appearance: alert, cooperative, no distress [...] apparent deficits Recent Results (from the past 1008 hour(s)) CBC W AUTO DIFFERENTIAL Collection Time 10/06/14 7:32 AM Result Value Range WBC 5.7 4.0-10.0 x10^9/L RBC 4.81 4.40-6.10 x10^12/L Hgb 15.4 13.7-17.5 gm/dL HCT 44.4 40.1-51.0 % MCV 92.3 78.0-100.0 fl MCH 32.0 25.6-34.0 pg MCHC 34.7 32.3-36.5 gm/dL RDW 13.0 11.6-14.4 % MPV 10.7 9.4-12.[address] 250 163-369 x10^9/L Neutro 51.4 40.0-75.0 % Lymph 34.6 19.3-53.1 % Emery 11.5 4.7-12.5 % Eos 1.2 0.7-7.0 % Baso 0.9 0.1-1.2 % Immature Grans 0.4 0-0.5 % Neutro Abs 2.91 1.56-6.13 x10^9/L Lymph Abs 1.96 1.18-3.74 x10^9/L Emery Abs 0.65 0.24-0.86 x10^9/L Eosin Abs 0.07 0.04-0.54 x10^9/L Baso Abs 0.05 0.01-0.08 x10^9/L Immature Grans Abs 0.02 0-0.03 x10^9/L NRBC Auto 0 <=0 /100 WBC NRBC ABS Blood Auto 0.00 <=0 x10^9/L COMPREHENSIVE METABOLIC PANEL Collection Time 10/06/14 7:32 AM Result Value Range Glucose 101 70-125 mg/dL Sodium 142 136-145 mmol/L Potassium 4.4 3.4-4.5 mmol/L Chloride 106 98-107 mmol/L CO2 25 22-29 mmol/L Calcium 9.39 8.4-10.2 mg/dL Anion Gap 15 10-20 mmol/L BUN 16.7 8.4-25.7 mg/dL Creatinine 0.79 0.72-1.25 mg/dL eGFR MDRD >60 >60 mL/min/1.73m2 eGFR MDRD AFR AMR >60 >60 mL/min/1.73m2 Alk Phos 44 40-150 U/L ALT/SGPT 16 5-55 U/L AST/SGOT 18 5-34 U/L Protein Total 7.5 6.4-8.3 gm/dL Albumin 3.8 3.5-5.0 gm/dL Globulin Total 3.7 2.6-4.0 gm/dL Alb/Glob Ratio 1.0 0.9-1.6 Bili Total 1.0 0.2-1.2 mg/dL LIPID PROFILE Collection Time 10/06/14 7:32 AM Result Value Range Cholesterol 158 <200 mg/dL Triglycerides 105 <150 mg/dL HDL Chol 42 >40 mg/dL Chol HDL Ratio 3.8 1.0-6.0 LDL Calc 95 65-130 mg/dL VLDL Calc 21 10-40 mg/dL TSH Collection Time 10/06/14 7:32 AM Result Value Range TSH 1.2454 0.35-4.94 uIU/mL HEMOGLOBIN A1C Collection Time 10/06/14 7:32 AM Result Value Range Hgb A1C 5.9 (*) 4.2-5.8 % AVERAGE GLUCOSE 123 PROSTATE SPECIFIC ANTIGEN SCREEN Collection Time 10/06/14 7:32 AM Result Value Range PSA 0.64 0.10-4.00 ng/mL ASSESSMENT: ICD-9-CM 1. Annual physical exam V70.0 CBC W AUTO DIFFERENTIAL COMPREHENSIVE METABOLIC PANEL LIPID PROFILE TSH HEMOGLOBIN A1C PROSTATE SPECIFIC ANTIGEN SCREEN URIC ACID BLOOD 2. Hyperlipidemia 272.4 CBC W AUTO DIFFERENTIAL COMPREHENSIVE METABOLIC PANEL LIPID PROFILE TSH HEMOGLOBIN A1C PROSTATE SPECIFIC ANTIGEN SCREEN URIC ACID BLOOD 3. Nicotine dependence 305.1 CBC W AUTO DIFFERENTIAL COMPREHENSIVE METABOLIC PANEL LIPID PROFILE TSH HEMOGLOBIN A1C PROSTATE SPECIFIC ANTIGEN SCREEN URIC ACID BLOOD 4. Special screening for malignant neoplasm of prostate V76.44 CBC W AUTO DIFFERENTIAL COMPREHENSIVE METABOLIC PANEL LIPID PROFILE TSH HEMOGLOBIN A1C PROSTATE SPECIFIC ANTIGEN SCREEN URIC ACID BLOOD 5. High risk medications (not anticoagulants) long-term use V58.69 CBC W AUTO DIFFERENTIAL COMPREHENSIVE METABOLIC PANEL LIPID PROFILE TSH HEMOGLOBIN A1C PROSTATE SPECIFIC ANTIGEN SCREEN URIC ACID BLOOD 6. Chronic cough 786.2 CANCELED: XR CHEST PA AND LATERAL PLAN: Orders Placed This Encounter ??? CBC W AUTO DIFFERENTIAL ??? COMPREHENSIVE METABOLIC PANEL ??? LIPID PROFILE ??? TSH ??? HEMOGLOBIN A1C ??? PROSTATE SPECIFIC ANTIGEN SCREEN ??? URIC ACID BLOOD ??? loratadine (CLARITIN) 10 MG tablet ??? fluticasone propionate (FLONASE) 50 MCG/ACT nasal spray Return in about 6 weeks (around 11/26/2014). RECENT COMPREHENSIVE SET OF LABS INCLUDING CBC, CMP, FBS ETC WERE ALL REVIEWED, DEVIATION FROM NORMAL NOTED, QUESTIONS, CONCERNS WERE ADDRESSED . USE OF CURRENT MEDICATIONS AND IMPACT ON PATIENT'S HEALTH DISCUSSED. CXR, MEDS NOTED AND FOLLOW. Yosvany Gonsalez MD ENGINEER documented in this encounter Plan of Treatment Not on file documented as of this encounter Visit Diagnoses Diagnosis Annual physical exam- Primary Routine general medical examination at a health care facility Hyperlipidemia Other and unspecified hyperlipidemia Nicotine dependence Tobacco use disorder Special screening for malignant neoplasm of prostate High risk medications (not anticoagulants) long-term use Encounter for long-term (current) use of other medications Chronic cough Cough documented in this encounter Care Teams Tower Air Traffic Control Specialist Relationship Specialty Start Date End Date Yosvany Gonsalez MD [address] [place] [phone] PCP - General Internal Medicine 04/08/13 09/03/19 documented as of this encounter
--- OUTSIDE RECORDS SUMMARY | 2024-11-02 07:33 | XMS_ITS | Encounter Summary ---
Author Organization [facility] Address [address] [place] [address] Care Team Providers Care Director Intelligence Analysis Programs Name Role Phone Yosvany Gonsalez MD Primary Care Provider [phone] Reason for Visit * Reason Onset Date Comments Refill Request 10/23/2014 Encounter Details Date Type Department Care Team (Late st Contact Info) Description 10/23/2014 Telephone [facility] Medical [facility] - Family Medicine [address] [phone] Yosvany Gonsalez MD [address] [place] [phone] Refill Request Social History Tobacco Use Types [...] Telephone Encounter - Sarai Richmond RN - 10/23/2014 11:17 AM CST He s calling stating that [email or web address] [facility] called him and they do not have the Claritin in stock.Sent to [place] [employer]. EL POST ORDER CLERK documented in this encounter Plan of Treatment Not on file documented as of this encounter Visit Diagnoses Not on filedocumented in this encounter Care Teams Director Intelligence Analysis Programs Relationship Specialty Start Date End Date Yosvany Gonsalez MD [address] [place] [phone] PCP - General Internal Medicine 04/08/13 09/03/19 documented as of this encounter
--- OUTSIDE RECORDS SUMMARY | 2024-11-02 07:33 | XMS_ITS | Encounter Summary ---
Author Organization [facility] Address [address] [place] [address] Care Team Providers Care Script Manager Name Role Phone Yosvany Gonsalez MD Primary Care Provider Encounter Details Date Type Department Care Team (Latest Contact Info) Description 10/06/2014 7:10 AM [facility] - 10/06/2014 11:59 PM [facility] Encounter [facility] - Lab Blood Draw [address] [address] Yosvany Gonsalez MD [address] [place] [address] [place] [phone] Discharge Disposition: Home or Self Care Social [...] Sig Dispensed Refills Start Date End Date amoxicillin (AMOXIL) 875 MG tablet Take 1 Tab by mouth 2 times daily. 20 Tab 0 02/12/2014 10/15/2014 ezetimibe-simvastatin (VYTORIN) 10-10 MG tablet Take 1 Tab by mouth once daily. 90 Tab 3 09/03/2014 09/21/2015 promethazine-codeine (PHENERGAN WITH CODEINE) 6.25-10 MG/5ML solution Take 5 mL to 10 mL by mouth 2 times daily as needed for cough. 180 mL 0 02/12/2014 10/15/2014 documented as of this encounter Plan of Treatment Not on file documented as of this encounter Procedures Procedure Name Priority Date/Time Associated Diagnosis Comments HEMOGLOBIN A1C Routine 10/06/2014 7:32 AM [facility]OOK Hyperlipidemia Nicotine dependence Special screening for malignant neoplasm of prostate High risk medications (not anticoagulants) long-term use Annual physical exam CBC W AUTO DIFFERENTIAL Routine 10/06/2014 7:32 AM DO[facility] AND [facility]OD COOK Hyperlipidemia Nicotine dependence Special screening for malignant neoplasm of prostate High risk medications (not anticoagulants) long-term use Tendonitis of shoulder, right Annual physical exam COMPREHENSIVE METABOLIC PANEL Routine 10/06/2014 7:32 AM [facility] COOK Hyperlipidemia Nicotine dependence Special screening for malignant neoplasm of prostate High risk medications (not anticoagulants) long-term use Tendonitis of shoulder, right Annual physical exam PROSTATE SPECIFIC ANTIGEN SCREEN Routine 10/06/2014 7:32 AM [facility] COOK Hyperlipidemia Nicotine dependence Special screening for malignant neoplasm of prostate Annual physical exam TSH Routine 10/06/2014 7:32 AM DO[facility] AND CAT [facility]OD COOK Hyperlipidemia Nicotine dependence Special screening for malignant neoplasm of prostate High risk medications (not anticoagulants) long-term use Annual physical exam LIPID PROFILE Routine 10/06/2014 7:32 AM [facility] AND CAT [facility]OD COOK Hyperlipidemia Nicotine dependence Special screening for malignant neoplasm of prostate High risk medications (not anticoagulants) long-term use Annual physical exam documented in this encounter Results * PROSTATE SPECIFIC ANTIGEN SCREEN (10/06/2014 7:32 AM DOG AND CAT FOOD COOK) Pathologist [facility] PSA 0.64 0.10 - 4.00 ng/mL 10/06/2014 10:35 PM DOG AND CAT FOOD [facility]OOK [facility] Blood BLOOD SPECIMEN / Unknown Venipuncture / Unknown 10/06/2014 7:32 AM [facility] 10/06/2014 7:32 AM [facility] AND [facility]OOK Yosvany Gonsalez MD LAB - CHEMISTRY VIVIANA ADAMS [facility] [address] * (ABNORMAL) HEMOGLOBIN A1C (10/06/2014 7:32 AM [facility] COOK) Hemoglobin A1c 5.9(H) 4.2 - 5.8 % 10/06/2014 10:49 PM [facility] AND [facility] Estimated Average Glucose 123 mg/dL 10/06/2014 10:49 PM DO[facility] AND [facility] [employer] Whole Blood BLOOD SPECIMEN WITH EDTA / Unknown Venipuncture / Unknown 10/06/2014 7:32 AM [facility] 10/06/2014 7:32 AM [facility] Narrative [facility] - 10/06/2014 10:49 PM DOG AND CAT FOOD COOK ? [employer] recommended the following cutoff levels: A1c ??> 6.5% -------- ??considered as diabetes if two separate tests > 6.5% or in an appropriate clinical setting. A1c between 5.7 -6.4% ?? considered as prediabetes (suggest increased risk for diabetes and cardiovascular disease). Suggested treatment target level : ??A1c <7% Note: ??A1c test may be affected in certain conditions, listed but not limited to the conditions ??such as heavy or chronic bleeding, hemoglobinopathy/hemoglobin variants, anemia, severe iron deficiency, recent blood transfusion, kidney failure or liver disease. Yosvany Gonsalez MD LAB - CHEMISTRY VIVIANA ADAMS Performing Organization Address City/[facility]/ZIP Co de Phone Number [facility] [address] * TSH (10/06/2014 7:32 AM DO[facility] AND CAT FOOD COOK) Pathologist [facility] TSH 1.2454 0.35 - 4.94 uIU/mL 10/06/2014 7:13 PM [facility] FOOD [facility]OOK [facility] Blood BLOOD SPECIMEN / Unknown Venipuncture / Unknown 10/06/2014 7:32 AM [facility] 10/06/2014 7:32 AM [facility] Yosvany Gonsalez MD LAB - CHEMISTRY VIVIANA ADAMS Performing Organization Address City/[facility]/ZIP Co de Phone Number [facility] [address] * LIPID PROFILE (10/06/2014 7:32 AM [facility]) Cholesterol 158 <200 mg/dL 10/06/2014 6:58 PM [facility] Triglycerides 105 <150 mg/dL 10/06/2014 6:58 PM [facility] HDL Cholesterol 42 >40 mg/dL 10/06/2014 6:58 PM [facility] Chol HDL Ratio 3.8 1.0 - 6.0 10/06/2014 6:58 PM [facility] LDL Calculated 95 65 - 130 mg/dL 10/06/2014 6:58 PM [facility] VLDL Calculated 21 10 - 40 mg/dL 10/06/2014 6:58 PM [facility] Blood BLOOD SPECIMEN / Unknown Venipuncture / Unknown 10/06/2014 7:32 AM [facility]OOK 10/06/2014 7:32 AM [facility] Narrative [facility] - 10/06/2014 6:58 PM [facility] Lipid Profile Comment: CHOLESTEROL LEVEL..................CLINICAL INTERPRETATION LESS THAN 200 MG/DL..............................DESIRABLE 200-239 MG/DL..............................BORDERLINE HIGH GREATER THAN 240 MG/DL................................HIGH LDL-CHOLESTEROL LEVEL..............CLINICAL INTERPRETATION LESS THAN 100 MG/DL................................OPTIMAL 100-129 MG/DL.................................NEAR OPTIMAL GREATER THAN 160 MG/DL...........................HIGH RISK HDL RISK LEVEL GREATER THEN 60 MG/DL............................DECREASED 40-60 MG/DL........................................AVERAGE LESS THAN 40 MG/DL...............................INCREASED TRIGLYCERIDE LEVEL..................CLINICAL INTERPRETATION LESS THAN 150 MG/DL...............................DESIRABLE 150-199 MG/DL...............................BORDERLINE HIGH 200-499 MG/DL..........................................HIGH GREATER THAN 500..................................VERY HIGH THE NATIONAL CHOLESTEROL EDUCATION PROGRAM HAS SET THE ABOVE GUIDELINES (REFERANCE VALUES) FOR CHOLESTEROL AND HDL. RISK ASSOCIATED WITH CHOLESTEROL/HDL RATIOS RISK....................MALE RATIO.............FEMALE RATIO 1/2 AVERAGE.................<3.4.......................<3.3 LOW RISK.................... 4.0 ...................... 3.8 AVERAGE..................... 5.0 ...................... 4.5 2X AVERAGE.................. 9.5 ...................... 7.0 3X AVERAGE...................>23........................>11 Yosvany Gonsalez MD LAB - CHEMISTRY VIVIANA ADAMS [facility] [address] [place] [address], [facility] * COMPREHENSIVE METABOLIC PANEL (10/06/2014 7:32 AM [facility] CAT [facility]OD COOK) [facility] Glucose 101 70 - 125 mg/dL 10/06/2014 6:58 PM [facility] Sodium 142 136 - 145 mmol/L 10/06/2014 6:58 PM [facility] Potassium 4.4 3.4 - 4.5 mmol/L 10/06/2014 6:58 PM [facility] Chloride 106 98 - 107 mmol/L 10/06/2014 6:58 PM [facility] CO2 25 22 - 29 mmol/L 10/06/2014 6:58 PM [facility] Calcium 9.39 8.4 - 10.2 mg/dL 10/06/2014 6:58 PM [facility] Anion Gap 15 10 - 20 mmol/L 10/06/2014 6:58 PM [facility] BUN 16.7 8.4 - 25.7 mg/dL 10/06/2014 6:58 PM [facility] Creatinine 0.79 0.72 - 1.25 mg/dL 10/06/2014 6:58 PM [facility] eGFR by MDRD >60 >60 mL/min/1.7 3m2 10/06/2014 6:58 PM [facility] eGFR by MDRD >60 >60 mL/min/1.7 3m2 10/06/2014 6:58 PM [facility] Alkaline Phosphatase 44 40 - 150 U/L 10/06/2014 6:58 PM [facility] ALT 16 5 - 55 U/L 10/06/2014 6:58 PM [facility] AST 18 5 - 34 U/L 10/06/2014 6:58 PM [facility] Protein Total 7.5 6.4 - 8.3 gm/dL 10/06/2014 6:58 PM [facility] Albumin 3.8 3.5 - 5.0 gm/dL 10/06/2014 6:58 PM [facility] Globulin Total 3.7 2.6 - 4.0 gm/dL 10/06/2014 6:58 PM [facility] Albumin/Globulin Ratio 1.0 0.9 - 1.6 10/06/2014 6:58 PM [facility] Bilirubin Total 1.0 0.2 - 1.2 mg/dL 10/06/2014 6:58 PM [facility] Blood BLOOD SPECIMEN / Unknown Venipuncture / Unknown 10/06/2014 7:32 AM [facility] 10/06/2014 7:32 AM [facility] Yosvany Gonsalez MD LAB - CHEMISTRY VIVIANA ADAMS Performing Organization Address City/State/[facility] Co de Phone Number [facility] [address] * CBC W AUTO DIFFERENTIAL (10/06/2014 7:32 AM [facility]) WBC 5.7 4.0 - 10.0 x10^9/L 10/06/2014 6:41 PM [facility] RBC 4.81 4.40 - 6.10 x10^12/L 10/06/2014 6:41 PM [facility] Hemoglobin 15.4 13.7 - 17.5 gm/dL 10/06/2014 6:41 PM [facility] Hematocrit 44.4 40.1 - 51.0 % 10/06/2014 6:41 PM [facility] MCV 92.3 78.0 - 100.0 fl 10/06/2014 6:41 PM [facility] MCH 32.0 25.6 - 34.0 pg 10/06/2014 6:41 PM [facility] MCHC 34.7 32.3 - 36.5 gm/dL 10/06/2014 6:41 PM [facility] RDW 13.0 11.6 - 14.4 % 10/06/2014 6:41 PM [facility] MPV 10.7 9.4 - 12.4 fl 10/06/2014 6:41 PM [facility] Platelet Count 250 163 - 369 x10^9/L 10/06/2014 6:41 PM [facility] Neutrophils % 51.4 40.0 - 75.0 % 10/06/2014 6:41 PM [facility] Lymphocytes % 34.6 19.3 - 53.1 % 10/06/2014 6:41 PM [facility] Monocytes % 11.5 4.7 - 12.5 % 10/06/2014 6:41 PM [facility] Eosinophils % 1.2 0.7 - 7.0 % 10/06/2014 6:41 PM [facility] Basophils % 0.9 0.1 - 1.2 % 10/06/2014 6:41 PM [facility] Immature Granulocytes 0.4 0 - 0.5 % 10/06/2014 6:41 PM [facility] Neutrophil Absolute 2.91 1.56 - 6.13 x10^9/L 10/06/2014 6:41 PM [facility] Lymphocytes Absolute 1.96 1.18 - 3.74 x10^9/L 10/06/2014 6:41 PM [facility] Monocytes Absolute 0.65 0.24 - 0.86 x10^9/L 10/06/2014 6:41 PM [facility] Eosinophils Absolute 0.07 0.04 - 0.54 x10^9/L 10/06/2014 6:41 PM [facility] Basophils Absolute 0.05 0.01 - 0.08 x10^9/L 10/06/2014 6:41 PM [facility] Immature Granulocytes Absolute 0.02 0 - 0.03 x10^9/L 10/06/2014 6:41 PM [facility] nRBC Auto 0 <=0 /100 WBC 10/06/2014 6:41 PM [facility] nRBC Absolute 0.00 <=0 x10^9/L 10/06/2014 6:41 PM [facility] Blood BLOOD SPECIMEN / Unknown Venipuncture / Unknown 10/06/2014 7:32 AM [facility] 10/06/2014 7:32 AM [facility] Yosvany Gonsalez MD LAB - HEMATOLOGY ORD ERABLES [facility] [address] [place], [place] [id number] [place] [address] documented in this encounter Visit Diagnoses Diagnosis Hyperlipidemia Other and unspecified hyperlipidemia Nicotine dependence Tobacco use disorder Special screening for malignant neoplasm of prostate High risk medications (not anticoagulants) long-term use Encounter for long-term (current) use of other medications Tendonitis of shoulder, right Disorders of bursae and tendons in shoulder region, unspecified Annual physical exam Routine general medical examination at a health care facility documented in this encounter Care Teams Script Manager Relationship Specialty Start Date End Date Yosvany Gonsalez MD [address] [place] [phone] PCP - General Internal Medicine 04/08/13 09/03/19 documented as of this encounter
--- OUTSIDE RECORDS SUMMARY | 2024-11-02 07:33 | XMS_ITS | Encounter Summary ---
Author Organization [facility] Address [address] [place] [address] Care Team Providers Care Shop Firer/Fireman Name Role Phone Yosvany Gonsalez MD Primary Care Provider [phone] Reason for Visit * Reason Onset Date Comments Medication Clarification 01/15/2015 Encounter Details Date Type Department Care Team (Late st Contact Info) Description 01/15/2015 Telephone [facility] - [address] [facility], [address] [place] [address] Ginny Mckeon MD [address] [place] [address] Medication Clarification Social History Tobacco Use Types Packs/Day Years [...] * Telephone Encounter - Perla Rodriguez - 01/15/2015 1:45 PM CDT [facility] received order for Miralax for colon prep-needed clarification on directions. Will cancel and re-order to local pharmacy with revised instructions per provider read back verbal order. Faxed back order cancellation to [facility]. documented in this encounter Plan of Treatment Not on file documented as of this encounter Visit Diagnoses Not on filedocumented in this encounter Care Teams Shop Firer/Fireman Relationship Specialty Start Date End Date Yosvany Gonsalez MD [address] [place] [address] PCP - General Internal Medicine 04/08/13 09/03/19 documented as of this encounter
--- OUTSIDE RECORDS SUMMARY | 2024-11-02 07:33 | XMS_ITS | Encounter Summary ---
Author Organization [facility] Address [address] [place] [address] Care Team Providers Care Hand Violin Maker Name Role Phone Yosvany Gonsalez MD Primary Care Provider [phone] Reason for Visit * Reason Comments Consultation needs screening colo noscopy Encounter Details Date Type Department Care Team (Late st Contact Info) Description 01/14/2015 1:15 PM CDT Office Visit [facility] - [address], [address] [place] [address] Ginny Mckeon MD [address] [place] [address] Other specified pre-operative examination (Primary Dx); Chronic cough Social History Tobacco Use Types [...] Sign Reading Time Taken Comments Blood Pressure 139/84 01/14/2015 1:27 PM CDT Pulse 80 01/14/2015 1:27 PM CDT Temperature 36.1 ??C (97 ??F) 01/14/2015 1:27 PM CDT Respiratory Rate 20 01/14/2015 1:27 PM CDT Oxygen Saturation 99% 01/14/2015 1:27 PM CDT Inhaled Oxygen Concentration - - Weight 77.1 kg (170 lb) 01/14/2015 1:27 PM CDT Height 170.2 cm (5' 7 ) 01/14/2015 1:27 PM CDT Body Mass Index 26.63 01/14/2015 1:27 PM CDT documented in this encounter Patient Instructions * Patient Instructions* Ginny Mckeon MD - 01/14/2015 1:40 PM CDT Follow the written bowel prep instructions as reviewed in the office documented in this encounter Progress Notes * Ginny Mckeon MD - 01/14/2015 1:36 PM CDT Date of Service: 01/14/2015 Pt Name: Natan Patel : 1955 AGE: [...] fluticasone propionate (FLONASE) 50 MCG/ACT nasal spray Guild 2 Sprays into each nostril once daily. [...] No Follow-up on file. Ginny Mckeon MD Homemaker Companion documented in this encounter Plan of Treatment Not on file documented as of this encounter Visit Diagnoses Diagnosis Other specified pre-operative examination- Primary Chronic cough Cough documented in this encounter Care Teams Hand Violin Maker Relationship Specialty Start Date End Date Yosvany Gonsalez MD [address] [place] [phone] PCP - General Internal Medicine 04/08/13 09/03/19 documented as of this encounter
--- OUTSIDE RECORDS SUMMARY | 2024-11-02 07:34 | XMS_ITS | Encounter Summary ---
Author Organization [facility] Address [address] [place] [address] Care Team Providers Care Supervisor Harvesting Name Role Phone Yosvany Gonsalez MD Primary Care Provider [phone] Reason for Visit * Reason Onset Date Comments MEDICATION REFILL 09/03/2014 Encounter Details Date Type Department Care Team (Late st Contact Info) Description 09/03/2014 Refill [facility] - Family [address], [address] [place] [phone] Yosvany Gonsalez MD [address] [place] [address] [place] [phone] MEDICATION REFILL Social History Tobacco Use Types [...] * Telephone Encounter - Perla Rodriguez - 09/03/2014 6:21 PM CDT Last o.v. 10/14/13. Next [facility] appt 10/15/14 for yearly exam. Refilled per [facility] Dr. Gonsalez documented in this encounter Plan of Treatment Not on file documented as of this encounter Visit Diagnoses Not on filedocumented in this encounter Care Teams Supervisor Harvesting Relationship Specialty Start Date End Date Yosvany Gonsalez MD [address] [place] [phone] PCP - General Internal Medicine 04/08/13 09/03/19 documented as of this encounter
--- OUTSIDE RECORDS SUMMARY | 2024-11-02 07:34 | XMS_ITS | Encounter Summary ---
Author Organization [facility] Address [address] [place] [address] Care Team Providers Care Fashion Intern Name Role Phone Yosvany Gonsalez MD Primary Care Provider Reason for Visit * Reason Onset Date Comments Sick 02/12/2014 Encounter Details Date Type Department Care Team (Late st Contact Info) Description 02/12/2014 Telephone [facility] - Family [address], [address] [place] [address] Yosvany Gonsalez MD [address] [place] [address] [place] [address] Sick Social History Tobacco Use Types Packs/Day Years [...] encounter Miscellaneous Notes * Telephone Encounter - Aamir Tran LPN - 02/12/2014 2:04 PM CDT Pt's informed of Dr. Gonsalez's orders and prescriptions sent to pharmacy. Vaishali voiced understanding. * Telephone Encounter - Yosvany Gonsalez MD - 02/12/2014 1:39 PM CDT Promethazine/codiene cough susp 5 to 10 cc bid prn # 180 ml * Telephone Encounter - Aamir Tran LPN - 02/12/2014 1:21 PM CDT Pt's requesting medication for the cough. Please advise * Telephone Encounter - Yosvany Gonsalez MD - 02/12/2014 12:22 PM CDT AMOXIL 875MG BID X 10 DAYS , SINUS CARE DISCUSSED * Telephone Encounter - Aamir Tran LPN - 02/12/2014 9:34 AM CDT Pt's stated pt c/o sinus congestion, hoarseness, and dry cough that is keeping patient up at night. Pt's stated they have taken patients temperature several times and pt is not running a fever. Pt uses [facility]. Please advise. documented in this encounter Plan of Treatment Not on file documented as of this encounter Visit Diagnoses Not on filedocumented in this encounter Care Teams Fashion Intern Relationship Specialty Start Date End Date Yosvany Gonsalez MD [address] [place] [phone] PCP - General Internal Medicine 04/08/13 09/03/19 documented as of this encounter
--- OUTSIDE RECORDS SUMMARY | 2024-11-02 07:35 | XMS_ITS | Encounter Summary ---
Author Organization [facility] Address [address] [place] [address] Care Team Providers Care Counter Stacker Name Role Phone Yosvany Gonsalez MD Primary Care Provider [phone] Reason for Visit * Reason Comments Follow-up 6 months Encounter Details Date Type Department Care Team (Late st Contact Info) Description 10/14/2013 4:15 PM GLOVE BRUSHER Office Visit [facility] - Family [address], [address] [place] [address] Yosvany Gonsalez MD [address] [place] [address] Annual physical exam (Primary Dx); Hyperlipidemia; Nicotine dependence; Special screening for malignant neoplasm of prostate; High risk medications (not anticoagulants) long-term use [...] Sign Reading Time Taken Comments Blood Pressure 122/82 10/14/2013 4:53 PM GLOVE BRUSHER Pulse 86 10/14/2013 4:53 PM GLOVE BRUSHER Temperature - - Respiratory Rate 16 10/14/2013 4:53 PM GLOVE BRUSHER Oxygen Saturation 96% 10/14/2013 4:53 PM GLOVE BRUSHER Inhaled Oxygen Concentration - - Weight 76.2 kg (168 lb) 10/14/2013 4:53 PM GLOVE BRUSHER Height 170.2 cm (5' 7 ) 10/14/2013 4:53 PM GLOVE BRUSHER Body Mass Index 26.31 10/14/2013 4:53 PM GLOVE BRUSHER documented in this encounter Progress Notes * Yosvany Gonsalez MD - 10/14/2013 5:15 PM CST Date: 10/14/2013 Pt Name: Natan Patel : 1955 AGE: 58 y.o. SEX: male SUBJECTIVE: Chief Complaint Patient presents with ??? Follow-up 6 months History of Present Illness: ANNUAL CHECK. COMPLIANT WITH MEDICATIONS , ACTIVE, PAIN CONTROL ADEQUATE, COPING WITH STRESSORS WELL. NO CHANGE IN ENERGY LEVELS, NO SIGNIFICANT CHANGE IN WEIGHT, NO RECENT ISSUES WITH FEVER, CHILLS. ALL MEDICATIONS WITH INSTRUCTIONS REVIEWED AT TODAY'S VISIT No Known Allergies Current Outpatient Prescriptions Medication Status Sig Dispense Refill ??? ezetimibe-simvastatin (VYTORIN) 10-10 MG tablet Active Take 1 Tab by mouth once daily. 90 Tab 3 Past Medical History Diagnosis Date ??? Allergy ??? Esophageal reflux ??? Chronic airway obstruction ??? Encounter for screening for malignant neoplasm of prostate Past Surgical History Procedure Date ??? Other surgery dental extraction ??? Hernia repair, inguinal 02/2012 left History Social History ??? Marital Status: Spouse Name: N/A Number of Children: 1 ??? Years of Education: 12 Occupational History ??? Social History Main Topics ??? Smoking status: Current Every Day Smoker -- 1.0 packs/day Types: Cigarettes ??? Smokeless tobacco: Never Used ??? Alcohol Use: 3.0 oz/week 6 Cans of beer per week ??? Drug Use: No ??? Sexually Active: Not on file Other Topics Concern ??? Not on file Social History Narrative ??? No narrative on file ROS: Comprehensive review was done HEENT: none, minor sinus drainage, seasonal CV: no obvious problems, denies cp RS: breathing at baseline ABD: diet stable EXT: joint pains stable, denies leg swelling NEURO: no compliants : no complaints PSYCH: stable, more anxious than usual SKIN: Normal OBJECTIVE: BP 122/82 Pulse 86 Resp 16 Wt 76.204 kg (168 lb) BMI 26.31 kg/m2 PHYSICAL EXAM: BP 122/82 Pulse 86 Resp 16 Wt 76.204 kg (168 lb) BMI 26.31 kg/m2 General appearance: alert, cooperative, no distress [...] hour(s)) CBC W AUTO DIFFERENTIAL Collection Time 10/01/13 8:55 AM Component Value Range WBC 4.1 3.4 - 10.8 x10E3/uL RBC 4.79 4.14 - 5.80 x10E6/uL Hgb 15.5 12.6 - 17.7 g/dL Hct 44.8 37.5 - 51.0 % MCV 94 79 - 97 fL MCH 32.4 26.6 - 33.0 pg MCHC 34.6 31.5 - 35.7 g/dL RDW 13.6 12.3 - 15.4 % Plt Ct 232 155 - 379 x10E3/uL Gran 46 40 - 74 % Lymph 42 14 - 46 % Walsh 9 4 - 12 % Eos 2 0 - 5 % Baso 1 0 - 3 % Immature Cells NOT NEEDED Gran Abs 1.9 1.4 - 7.0 x10E3/uL Lymph Abs 1.7 0.7 - 3.1 x10E3/uL Walsh Abs 0.4 0.1 - 0.9 x10E3/uL Eos (Absolute) 0.1 0.0 - 0.4 x10E3/uL Baso Abs 0.1 0.0 - 0.2 x10E3/uL Immature Granulocytes 0 0 - 2 % Immature Grans (Abs) 0.0 0.0 - 0.1 x10E3/uL NRBC NOT NEEDED Hematology Comments NOT NEEDED COMPREHENSIVE METABOLIC PANEL Collection Time 10/01/13 8:55 AM Component Value Range Glucose 88 65 - 99 mg/dL BUN 11 6 - 24 mg/dL Creatinine 0.70 (*) 0.76 - 1.27 mg/dL EGFR Estimated 103 >59 mL/min/1.73 EGFR 119 >59 mL/min/1.73 BUN/Creat 16 9 - 20 Sodium 139 134 - 144 mmol/L Potassium 4.6 3.5 - 5.2 mmol/L Chloride 101 97 - 108 mmol/L CO2 25 19 - 28 mmol/L Calcium 8.9 8.7 - 10.2 mg/dL Protein Total 7.7 6.0 - 8.5 g/dL Albumin 4.6 3.5 - 5.5 g/dL Globulin Total 3.1 1.5 - 4.5 g/dL Alb/Glob Ratio 1.5 1.1 - 2.5 Bili Total 0.5 0.0 - 1.2 mg/dL Alk Phos 45 39 - 117 IU/L AST/SGOT 20 0 - 40 IU/L ALT/SGPT 18 0 - 44 IU/L LIPID PROFILE Collection Time 10/01/13 8:55 AM Component Value Range Cholesterol 173 100 - 199 mg/dL Triglycerides 143 0 - 149 mg/dL Chol HDL 41 >39 mg/dL VLDL Calc 29 5 - 40 mg/dL LDL calc 103 (*) 0 - 99 mg/dL Comment NOT NEEDED PROSTATE SPECIFIC ANTIGEN SCREEN Collection Time 10/01/13 8:55 AM Component Value Range PSA 0.6 0.0 - 4.0 ng/mL TSH Collection Time 10/01/13 8:55 AM Component Value Range TSH 1.050 0.450 - 4.500 uIU/mL URIC ACID BLOOD Collection Time 10/01/13 8:55 AM Component Value Range Uric Acid 5.2 3.7 - 8.6 mg/dL HEMOGLOBIN A1C Collection Time 10/01/13 8:55 AM Component Value Range Hgb A1C 5.7 (*) 4.8 - 5.6 % ASSESSMENT: 1. Annual physical exam (V70.0) CBC W AUTO DIFFERENTIAL, COMPREHENSIVE METABOLIC PANEL, LIPID PROFILE, TSH, HEMOGLOBIN A1C, PROSTATE SPECIFIC ANTIGEN SCREEN 2. Hyperlipidemia (272.4) CBC W AUTO DIFFERENTIAL, COMPREHENSIVE METABOLIC PANEL, LIPID PROFILE, TSH, HEMOGLOBIN A1C, PROSTATE SPECIFIC ANTIGEN SCREEN 3. Nicotine dependence (305.1) CBC W AUTO DIFFERENTIAL, COMPREHENSIVE METABOLIC PANEL, LIPID PROFILE, TSH, HEMOGLOBIN A1C, PROSTATE SPECIFIC ANTIGEN SCREEN 4. Special screening for malignant neoplasm of prostate (V76.44) CBC W AUTO DIFFERENTIAL, COMPREHENSIVE METABOLIC PANEL, LIPID PROFILE, TSH, HEMOGLOBIN A1C, PROSTATE SPECIFIC ANTIGEN SCREEN 5. High risk medications (not anticoagulants) long-term use (V58.69) CBC W AUTO DIFFERENTIAL, COMPREHENSIVE METABOLIC PANEL, LIPID PROFILE, TSH, HEMOGLOBIN A1C, PROSTATE SPECIFIC ANTIGEN SCREEN PLAN: Orders Placed This Encounter ??? CBC W AUTO DIFFERENTIAL ??? COMPREHENSIVE METABOLIC PANEL ??? LIPID PROFILE ??? TSH ??? HEMOGLOBIN A1C ??? PROSTATE SPECIFIC ANTIGEN SCREEN No Follow-up on file. RECENT COMPREHENSIVE SET OF LABS INCLUDING CBC, CMP, FBS ETC WERE ALL REVIEWED, DEVIATION FROM NORMAL NOTED, QUESTIONS, CONCERNS WERE ADDRESSED . USE OF CURRENT MEDICATIONS AND IMPACT ON PATIENT'S HEALTH DISCUSSED. Yosvany Gonsalez MD E BRUSHER documented in this encounter Plan of Treatment [...] medications documented in this encounter Care Teams Counter Stacker Relationship Specialty Start Date End Date Yosvany Gonsalez MD [address] [place] [phone] PCP - General Internal Medicine 04/08/13 09/03/19 documented as of this encounter
--- OUTSIDE RECORDS SUMMARY | 2024-11-02 07:35 | XMS_ITS | Encounter Summary ---
Author Organization [facility] Address [address] [place] [address] Care Team Providers Care Retail Assistant Store Manager Name Role Phone Unavailable Primary Care Provider Unavailabl e Reason for Visit * Reason Onset Date Comments Refill Request 02/07/2013 Encounter Details Date Type Department Care Team (Late st Contact Info) Description 02/07/2013 Telephone [facility] - Family Medicine [address] [place] [address], [address] [place] [phone] Yosvany Gonsalez MD [address] [place] [phone] Refill Request Social History Tobacco Use Types Packs/Day Years Used Date Smoking Tobacco: Never Assessed Sex and Gender Information Value Date Recorded Sex Assigned at Not on file Gender Identity Not on file Sexual Orientation Not on file documented as of this encounter Miscellaneous Notes * Telephone Encounter - Angela Anderson LPN - 02/07/2013 5:46 PM CDT rx for meloxicam elec trans * Telephone Encounter - Leidy Ramos - 02/07/2013 12:26 PM CDT Sunshine turner pt to clarify meds documented in this encounter Plan of Treatment Not on file documented as of this encounter Visit Diagnoses Not on filedocumented in this encounter
--- OUTSIDE RECORDS SUMMARY | 2024-11-02 07:35 | XMS_ITS | Encounter Summary ---
Author Organization [facility] Address [address] [place] [address] Care Team Providers Care Flat Optical Element Maker Name Role Phone Yosvany Gonsalez MD Primary Care Provider [phone] Reason for Visit * Reason Onset Date Comments MEDICATION REFILL 06/04/2013 Encounter Details Date Type Department Care Team (Late st Contact Info) Description 06/04/2013 Refill [facility] - Family [address] [place] [address] Yosvany Gonsalez MD [address] [place] [address] MEDICATION REFILL Social History Tobacco [...] Telephone Encounter - Aamir Tran LPN - 06/04/2013 10:01 AM CDT Per med refill protocol. documented in this encounter Plan of Treatment Not on file documented as of this encounter Visit Diagnoses Not on filedocumented in this encounter Care Teams Flat Optical Element Maker Relationship Specialty Start Date End Date Yosvany Gonsalez MD [address] [place] [phone] PCP - General Internal Medicine 04/08/13 09/03/19 documented as of this encounter
--- OUTSIDE RECORDS SUMMARY | 2024-11-02 07:35 | XMS_ITS | Encounter Summary ---
Author Organization [facility] Address [address] [place] [address] Care Team Providers Care Customer Expert Name Role Phone Yosvany Gonsalez MD Primary Care Provider [phone] Reason for Visit * Reason Onset Date Comments Med Question 04/16/2013 Encounter Details Date Type Department Care Team (Late st Contact Info) Description 04/16/2013 Telephone [facility] Medical [facility] - Family Medicine [address] [place] [address] [address] [place] [phone] Yosvany Gonsalez MD [address] [place] [address] Med Question Social History Tobacco Use Types Packs/Day [...] encounter Miscellaneous Notes * Telephone Encounter - Kiera Hernández LPN - 04/16/2013 2:36 PM CDT faxed * Telephone Encounter - Kiera Hernández LPN - 04/16/2013 2:36 PM CDT Script printed * Telephone Encounter - Yosvany Gonsalez MD - 04/16/2013 2:27 PM CDT DONE * Telephone Encounter - Kiera Hernández LPN - 04/16/2013 2:03 PM CDT Pt notified et. Verb understanding * Telephone Encounter - Kiera Hernández LPN - 04/16/2013 2:02 PM CDT states to call his cell phone [phone] * Telephone Encounter - Yosvany Gonsalez MD - 04/16/2013 11:55 AM CDT CAN TRY TRAMADOL 50MG ONE TO TWO TABS AT BEDTIME # 40 AND CALL IN 2 WEEKS WITH STATUS REPORT * Telephone Encounter - Gloria Bishop RN - 04/16/2013 10:34 AM CDT Pt said he has been on mobic for 6 years, he said it is not helping his shoulder and was under the impression something else would be ordered in place of it yesterday. documented in this encounter Plan of Treatment Not on file documented as of this encounter Visit Diagnoses Not on filedocumented in this encounter Care Teams Customer Expert Relationship Specialty Start Date End Date Yosvany Gonsalez MD [address] [phone] PCP - General Internal Medicine 04/08/13 09/03/19 documented as of this encounter
--- OUTSIDE RECORDS SUMMARY | 2024-11-02 07:35 | XMS_ITS | Encounter Summary ---
Author Organization [facility] Address [address] [place] [address] Care Team Providers Care Landcare Facilitator Name Role Phone Yosvany Gonsalez MD Primary Care Provider [phone] Reason for Visit * Reason Comments Pain right knee and right shoulder pain Reflux Encounter Details Date Type Department Care Team (Latest Contact Info) Description 04/15/2013 4:00 PM CDT Office Visit [facility] - Family Medicine [address] [place] [address], [address] [place] [address] Yosvany Gonsalez MD [address] [place] [address] [place] [address] Hyperlipidemia (Primary Dx); Nicotine dependence; Special screening for malignant neoplasm of prostate; High risk medications (not anticoagulants) long-term use; Tendonitis of shoulder, right Social History Tobacco Use Types Packs/Day Years [...] Sign Reading Time Taken Comments Blood Pressure 119/74 04/15/2013 4:32 PM CDT Pulse 85 04/15/2013 4:32 PM CDT Temperature - - Respiratory Rate - - Oxygen Saturation 95% 04/15/2013 4:32 PM CDT Inhaled Oxygen Concentration - - Weight 76.2 kg (168 lb) 04/15/2013 4:32 PM CDT Height 170.2 cm (5' 7 ) 04/15/2013 4:32 PM CDT Body Mass Index 26.31 04/15/2013 4:32 PM CDT documented in this encounter Progress Notes * Yosvany Gonsalez MD - 04/15/2013 6:57 PM CDT Date: 04/15/2013 Pt Name: Natan Patel : 1955 AGE: 57 y.o. SEX: male SUBJECTIVE: Chief Complaint Patient presents with ??? Pain right knee and right shoulder pain ??? Reflux History of Present Illness: WORSENING R SHOULDER PAIN, COMPLIANT WITH MEDICATIONS , ACTIVE, PAIN CONTROL ADEQUATE, COPING WITH STRESSORS WELL. NO CHANGE IN ENERGY LEVELS, NO SIGNIFICANT CHANGE IN WEIGHT, NO RECENT ISSUES WITH FEVER, CHILLS. ALL MEDICATIONS WITH INSTRUCTIONS REVIEWED AT TODAY'S VISIT No Known Allergies Current Outpatient Prescriptions Medication Sig Dispense Refill ??? meloxicam (MOBIC) 7.5 MG tablet Take 1 Tab by mouth once daily. 30 Tab 1 ??? ezetimibe-simvastatin (VYTORIN) 10-10 MG tablet Take 1 Tab by mouth once daily. Past Medical History Diagnosis Date ??? Allergy [...] History Main Topics ??? Smoking status: Current Everyday Smoker -- 1.0 packs/day Types: Cigarettes ??? [...] cp RS: breathing at baseline ABD: diet excellent, bowels moving well, voices no problems EXT: joint pains stable, denies leg swelling NEURO: no compliants : no complaints PSYCH: stable, more anxious than usual SKIN: Normal OBJECTIVE: BP 119/74 Pulse 85 Wt 76.204 kg (168 lb) BMI 26.31 kg/m2 PHYSICAL EXAM: BP 119/74 Pulse 85 Wt 76.204 kg (168 lb) BMI 26.31 kg/m2 General appearance: alert, cooperative, no distress Head: Normocephalic, without trauma Eyes: sclera and conjunctiva clear, EOMI and PERRLA, lids normal Ears: canals clear, hearing intact to voice Nose: nares open; no septal deviation is noted Throat: no mucous membrane abnormalities Neck: range of motion is intact, no masses, thyroid not enlarged, no adenopathy Nodes: no cervical, axillary or inguinal adenopathy Back: no deformity or tenderness Chest: no tenderness Lungs: breath sounds normal and symmetric; no rales or wheezes Heart: regular rhythm, normal S1 and S2, without murmurs, gallops or rubs Abdomen: soft without mass, non-tender, with normal bowel sounds Extremities: no clubbing, cyanosis or edema Circulation: Carotid and pedal pulses are intact and symmetrical, no carotid bruits Joints: ranges of motion normal without inflammation, effusion or deformity Skin: no rashes or other abnormalities are noted Neurologic: mental status normal; speech, language, affect at baseline. Alert and oriented X 3; Cranial nerves II - XII are grossly intact, motor , sensory, cerebellar exam at baseline, no apparent deficits Recent Results (from the past 1008 hour(s)) COMPREHENSIVE METABOLIC PANEL Collection Time 04/03/13 7:47 AM Component Value Range Glucose 93 65 - 99 mg/dL BUN 13 6 - 24 mg/dL Creatinine 0.76 0.76 - 1.27 mg/dL EGFR Estimated 101 >59 mL/min/1.73 EGFR 116 >59 mL/min/1.73 BUN/Creat 17 9 - 20 Sodium 140 134 - 144 mmol/L Potassium 5.1 3.5 - 5.2 mmol/L Chloride 103 97 - 108 mmol/L CO2 23 20 - 32 mmol/L Calcium 9.2 8.7 - 10.2 mg/dL Protein Total 7.3 6.0 - 8.5 g/dL Albumin 4.6 3.5 - 5.5 g/dL Globulin Total 2.7 1.5 - 4.5 g/dL Alb/Glob Ratio 1.7 1.1 - 2.5 Bili Total 0.5 0.0 - 1.2 mg/dL Alk Phos 46 25 - 150 IU/L AST/SGOT 20 0 - 40 IU/L ALT/SGPT 21 0 - 44 IU/L LIPID PROFILE W LDL/HDL (PO REF LAB) Collection Time 04/03/13 7:47 AM Component Value Range Cholesterol 158 100 - 199 mg/dL Triglycerides 74 0 - 149 mg/dL Chol HDL 54 >39 mg/dL VLDL Calc 15 5 - 40 mg/dL LDL calc 89 0 - 99 mg/dL Comment NOT NEEDED LDL/HDL Ratio 1.6 0.0 - 3.6 ratio units ASSESSMENT: 1. Hyperlipidemia (272.4) CBC W AUTO DIFFERENTIAL, COMPREHENSIVE METABOLIC PANEL, LIPID PROFILE, PROSTATE SPECIFIC ANTIGEN SCREEN, TSH, URIC ACID BLOOD, HEMOGLOBIN A1C 2. Nicotine dependence (305.1) CBC W AUTO DIFFERENTIAL, COMPREHENSIVE METABOLIC PANEL, LIPID PROFILE, PROSTATE SPECIFIC ANTIGEN SCREEN, TSH, URIC ACID BLOOD, HEMOGLOBIN A1C 3. Special screening for malignant neoplasm of prostate (V76.44) CBC W AUTO DIFFERENTIAL, COMPREHENSIVE METABOLIC PANEL, LIPID PROFILE, PROSTATE SPECIFIC ANTIGEN SCREEN, TSH, URIC ACID BLOOD, HEMOGLOBIN A1C 4. High risk medications (not anticoagulants) long-term use (V58.69) CBC W AUTO DIFFERENTIAL, COMPREHENSIVE METABOLIC PANEL, LIPID PROFILE, PROSTATE SPECIFIC ANTIGEN SCREEN, TSH, URIC ACID BLOOD, HEMOGLOBIN A1C 5. Tendonitis of shoulder, right (726.10) PLAN: Orders Placed This Encounter ??? CBC W AUTO DIFFERENTIAL ??? COMPREHENSIVE METABOLIC PANEL ??? LIPID PROFILE ??? PROSTATE SPECIFIC ANTIGEN SCREEN ??? TSH ??? URIC ACID BLOOD ??? HEMOGLOBIN A1C ??? meloxicam (MOBIC) 7.5 MG tablet Return in about 6 months (around 10/15/2013). RECENT COMPREHENSIVE SET OF LABS INCLUDING CBC, CMP, FBS ETC WERE ALL REVIEWED, DEVIATION FROM NORMAL NOTED, QUESTIONS, CONCERNS WERE ADDRESSED AND COPIES PROVIDED FOR FURTHER REVIEW AT HOME. USE OF CURRENT MEDICATIONS AND IMPACT ON PATIENT'S HEALTH ALSO DISCUSSED. OTC MEDS, TOPICAL CARE FOR SHOULDER , CALL IF WORSE. Yosvany Gonsalez MD documented in this encounter Miscellaneous Notes * Addendum Note - Sanya Suarez MA - 10/01/2013 8:05 AM CSTAddended by: Sanya SUAREZ on: 10/01/2013 08:05 AM Modules accepted: Orders CTOR OF ENTERTAINMENT documented in this encounter Plan of Treatment Not on file documented as of this encounter Procedures Procedure Name Priority Date/Time Associated Diagnosis Comments URIC ACID BLOOD Routine 10/01/2013 8:55 AM DIRECTOR OF ENTERTAINMENT Hyperlipidemia Nicotine dependence Special screening for malignant neoplasm of prostate High risk medications (not anticoagulants) long-term use Tendonitis of shoulder, right HEMOGLOBIN A1C Routine 10/01/2013 8:55 AM DIRECTOR OF ENTERTAINMENT Hyperlipidemia Nicotine dependence Special screening for malignant neoplasm of prostate High risk medications (not anticoagulants) long-term use Tendonitis of shoulder, right CBC W AUTO DIFFERENTIAL Routine 10/01/2013 8:55 AM DIRECTOR OF ENTERTAINMENT Hyperlipidemia Nicotine dependence Special screening for malignant neoplasm of prostate High risk medications (not anticoagulants) long-term use Tendonitis of shoulder, right COMPREHENSIVE METABOLIC PANEL Routine 10/01/2013 8:55 AM DIRECTOR OF ENTERTAINMENT Hyperlipidemia Nicotine dependence Special screening for malignant neoplasm of prostate High risk medications (not anticoagulants) long-term use Tendonitis of shoulder, right PROSTATE SPECIFIC ANTIGEN SCREEN Routine 10/01/2013 8:55 AM DIRECTOR OF ENTERTAINMENT Hyperlipidemia Nicotine dependence Special screening for malignant neoplasm of prostate High risk medications (not anticoagulants) long-term use Tendonitis of shoulder, right TSH Routine 10/01/2013 8:55 AM DIRECTOR OF ENTERTAINMENT Hyperlipidemia Nicotine dependence Special screening for malignant neoplasm of prostate High risk medications (not anticoagulants) long-term use Tendonitis of shoulder, right LIPID PROFILE Routine 10/01/2013 8:55 AM DIRECTOR OF ENTERTAINMENT Hyperlipidemia Nicotine dependence Special screening for malignant neoplasm of prostate High risk medications (not anticoagulants) long-term use Tendonitis of shoulder, right documented in this encounter Results * (ABNORMAL) HEMOGLOBIN A1C (10/01/2013 8:55 AM DIRECTOR OF ENTERTAINMENT) Hemoglobin A1c 5.7(H) 4.8 - 5.6 % [facility] ACCOUNT BILL Comment: ? . ? Increased risk for diabetes: 5.7 - 6.4 ? Diabetes: >6.4 ? Glycemic control for adults with diabetes: <7.0 Whole blood specimen (specimen) BLOOD SPECIMEN WITH EDTA / Unknown 10/01/2013 8:55 AM DIRECTOR OF ENTERTAINMENT 10/01/2013 12:59 PM DIRECTOR OF ENTERTAINMENT Narrative Resulting Agency Comment [facility] [address] ??[place] [phone] Yosvany Gonsalez MD LAB - CHEMISTRY VIVIANA ADAMS [facility] ACCOUNT BILL * URIC ACID BLOOD (10/01/2013 8:55 AM DIRECTOR OF ENTERTAINMENT) Uric Acid 5.2 3.7 - 8.6 mg/dL [facility] ACCOUNT BILL Comment:Therapeutic target f or gout patients: <6.0 Blood specimen (specimen) BLOOD SPECIMEN / Unknown 10/01/2013 8:55 AM DIRECTOR OF ENTERTAINMENT 10/01/2013 12:59 PM DIRECTOR OF ENTERTAINMENT Narrative Resulting Agency Comment [facility] [address] ??[place] [phone] Yosvany Gonsalez MD LAB - CHEMISTRY VIVIANA ADAMS [facility] ACCOUNT BILL * TSH (10/01/2013 8:55 AM DIRECTOR OF ENTERTAINMENT) TSH 1.050 0.450 - 4.500 uIU/mL [facility] ACCOUNT BILL Blood specimen (specimen) BLOOD SPECIMEN / Unknown 10/01/2013 8:55 AM DIRECTOR OF ENTERTAINMENT 10/01/2013 12:59 PM DIRECTOR OF ENTERTAINMENT Narrative Resulting Agency Comment [facility] [place] [address] ??[place] [phone] Yosvany Gonsalez MD LAB - CHEMISTRY VIVIANA ADAMS Performing Organization Address [facility] Co de Phone Number [facility] ACCOUNT BILL * PROSTATE SPECIFIC ANTIGEN SCREEN (10/01/2013 8:55 AM DIRECTOR OF ENTERTAINMENT) PSA 0.6 0.0 - 4.0 ng/mL [facility] ACCOUNT BILL Comment: Atif ECLIA methodology. ? . According to the [employer], Serum PSA should decrease and remain at undetectable levels after radical prostatectomy. The AUA defines biochemical recurrence as an initial PSA value 0.2 ng/mL or greater followed by a subsequent confirmatory PSA value 0.2 ng/mL or greater. Values obtained with different assay methods or kits cannot be used interchangeably. Results cannot be interpreted as absolute evidence of the presence or absence of malignant disease. Blood specimen (specimen) BLOOD SPECIMEN / Unknown 10/01/2013 8:55 AM DIRECTOR OF ENTERTAINMENT 10/01/2013 12:59 PM DIRECTOR OF ENTERTAINMENT Narrative Resulting Agency Comment [facility] [address] ??[facility] [phone] Yosvany Gonsalez MD LAB - CHEMISTRY VIVIANA ADAMS Performing Organization Address [facility] Co de Phone Number [facility] ACCOUNT BILL * (ABNORMAL) LIPID PROFILE (10/01/2013 8:55 AM DIRECTOR OF ENTERTAINMENT) Cholesterol 173 100 - 199 mg/dL [facility] ACCOUNT BILL Triglycerides 143 0 - 149 mg/dL [facility] ACCOUNT BILL HDL Cholesterol 41 >39 mg/dL [facility] ACCOUNT BILL Comment: According to ATP-III Guidelines, HDL-C >59 mg/dL is considered a negative risk factor for CHD. VLDL Calculated 29 5 - 40 mg/dL [facility] ACCOUNT BILL LDL Calculated 103(H) 0 - 99 mg/dL [facility] ACCOUNT BILL Comment NOT NEEDED [facility] ACCOUNT BILL Comment:Ancillary determined the test is not needed Blood specimen (specimen) BLOOD SPECIMEN / Unknown 10/01/2013 8:55 AM DIRECTOR OF ENTERTAINMENT 10/01/2013 12:59 PM DIRECTOR OF ENTERTAINMENT Narrative Resulting Agency Comment [facility] [address] ??[facility] [phone] Yosvany Gonsalez MD LAB - CHEMISTRY VIVIANA ADAMS [facility] ACCOUNT BILL * (ABNORMAL) COMPREHENSIVE METABOLIC PANEL (10/01/2013 8:55 AM DIRECTOR OF ENTERTAINMENT) Glucose 88 65 - 99 mg/dL [facility] ACCOUNT BILL BUN 11 6 - 24 mg/dL [facility] ACCOUNT BILL Creatinine 0.70(L) 0.76 - 1.27 mg/dL [facility] ACCOUNT BILL eGFR by MDRD 103 >59 mL/min/1.7 3 [facility] ACCOUNT BILL eGFR by MDRD 119 >59 mL/min/1.7 3 [facility] ACCOUNT BILL BUN/Creatinine Ratio 16 9 - 20 [facility] ACCOUNT BILL Sodium 139 134 - 144 mmol/L [facility] ACCOUNT BILL Potassium 4.6 3.5 - 5.2 mmol/L [facility] ACCOUNT BILL Chloride 101 97 - 108 mmol/L [facility] ACCOUNT BILL CO2 25 19 - 28 mmol/L [facility] ACCOUNT BILL Calcium 8.9 8.7 - 10.2 mg/dL [facility] ACCOUNT BILL Protein Total 7.7 6.0 - 8.5 g/dL [facility] ACCOUNT BILL Albumin 4.6 3.5 - 5.5 g/dL [facility] ACCOUNT BILL Globulin Total 3.1 1.5 - 4.5 g/dL [facility] ACCOUNT BILL Albumin/Globulin Ratio 1.5 1.1 - 2.5 [facility] ACCOUNT BILL Bilirubin Total 0.5 0.0 - 1.2 mg/dL [facility] ACCOUNT BILL Alkaline Phosphatase 45 39 - 117 IU/L [facility] ACCOUNT BILL AST 20 0 - 40 IU/L [facility] ACCOUNT BILL ALT 18 0 - 44 IU/L [facility] ACCOUNT BILL Blood specimen (specimen) BLOOD SPECIMEN / Unknown 10/01/2013 8:55 AM DIRECTOR OF ENTERTAINMENT 10/01/2013 12:59 PM DIRECTOR OF ENTERTAINMENT Narrative Resulting Agency Comment [facility] [place] [address] [facility] ??[facility] [phone] Yosvany Gonsalez MD LAB - CHEMISTRY VIVIANA ADAMS [facility] ACCOUNT BILL * CBC W AUTO DIFFERENTIAL (10/01/2013 8:55 AM DIRECTOR OF ENTERTAINMENT) WBC 4.1 3.4 - 10.8 x10E3/uL [facility] ACCOUNT BILL RBC 4.79 4.14 - 5.80 x10E6/uL [facility] ACCOUNT BILL Hemoglobin 15.5 12.6 - 17.7 g/dL [facility] ACCOUNT BILL Hematocrit 44.8 37.5 - 51.0 % [facility] ACCOUNT BILL MCV 94 79 - 97 fL [facility] ACCOUNT BILL MCH 32.4 26.6 - 33.0 pg [facility] ACCOUNT BILL MCHC 34.6 31.5 - 35.7 g/dL [facility] ACCOUNT BILL RDW 13.6 12.3 - 15.4 % [facility] ACCOUNT BILL Platelet Count 232 155 - 379 x10E3/uL [facility] ACCOUNT BILL Granulocytes % 46 40 - 74 % [facility] ACCOUNT BILL Lymphocytes % 42 14 - 46 % [facility] ACCOUNT BILL Monocytes % 9 4 - 12 % [facility] ACCOUNT BILL Eosinophils % 2 0 - 5 % [facility] ACCOUNT BILL Basophils % 1 0 - 3 % [facility] ACCOUNT BILL Immature Cells NOT NEEDED [facility] ACCOUNT BILL Comment:Ancillary determined the test is not needed Granulocytes Absolute 1.9 1.4 - 7.0 x10E3/uL [facility] ACCOUNT BILL Lymphocytes Absolute 1.7 0.7 - 3.1 x10E3/uL [facility] ACCOUNT BILL Monocytes Absolute 0.4 0.1 - 0.9 x10E3/uL [facility] ACCOUNT BILL Eosinophils Absolute 0.1 0.0 - 0.4 x10E3/uL [facility] ACCOUNT BILL Basophils Absolute 0.1 0.0 - 0.2 x10E3/uL [facility] ACCOUNT BILL Immature Granulocytes 0 0 - 2 % [facility] ACCOUNT BILL Immature Granulocytes Absolute 0.0 0.0 - 0.1 x10E3/uL [facility] ACCOUNT BILL nRBC NOT NEEDED [facility] ACCOUNT BILL Comment:Ancillary determined the test is not needed Comment Hematology NOT NEEDED [facility] ACCOUNT BILL Comment:Ancillary determined the test is not needed Blood specimen (specimen) BLOOD SPECIMEN / Unknown 10/01/2013 8:55 AM DIRECTOR OF ENTERTAINMENT 10/01/2013 12:59 PM DIRECTOR OF ENTERTAINMENT Narrative Resulting Agency Comment [facility] [place] [address] [facility] ??[place] [phone] Yosvany Gonsalez MD LAB - HEMATOLOGY ORD ERABLES [facility] ACCOUNT BILL documented in this encounter Visit Diagnoses Diagnosis Hyperlipidemia- Primary Other and unspecified hyperlipidemia Nicotine dependence Tobacco use disorder Special screening for malignant neoplasm of prostate High risk medications (not anticoagulants) long-term use Encounter for long-term (current) use of other medications Tendonitis of shoulder, right Disorders of bursae and tendons in shoulder region, unspecified documented in this encounter Care Teams Landcare Facilitator Relationship Specialty Start Date End Date Yosvany Gonsalez MD [address] [place] [phone] PCP - General Internal Medicine 04/08/13 09/03/19 documented as of this encounter
--- OUTSIDE RECORDS SUMMARY | 2024-11-02 07:35 | XMS_ITS | Encounter Summary ---
Author Organization [facility] Address [address] [place] [address] Care Team Providers Care Substance Abuse Technician Name Role Phone Yosvany Gonsalez MD Primary Care Provider [phone] Reason for Visit * Reason Onset Date Comments Order 01/29/2014 Encounter Details Date Type Department Care Team (Late st Contact Info) Description 01/29/[address] [facility] - Family Medicine [address] [place] [address], [address] [place] [phone] Yosvany Gonsalez MD [address] [place] [address] [place] [address] Order Social History Tobacco Use Types Packs/Day [...] Telephone Encounter - Sarai Richmond RN - 01/29/2014 4:17 PM CDT Called the patient and let him know that I would place the order and he would be called back with an appointment.Voices understanding.Order placed.I will give to Leidy Ramos. * Telephone Encounter - Mmoo Delgado MD - 01/29/2014 2:07 PM CDT ok * Telephone Encounter - Aamir Tran LPN - 01/29/2014 12:15 PM CDT Ok to enter referral to [facility] for therapy? Please advise. * Telephone Encounter - Sarai Richmond RN - 01/29/2014 11:33 AM CDT Call from te patient stating that he and had previously talked about him getting therapy onhis right knee and he wanted to wait but now it is bothering more and he would like a referral to [facility].I will forward this to Aamir Tran as she is working for . documented in this encounter Plan of Treatment Not on file documented as of this encounter Visit Diagnoses Diagnosis Right knee pain- Primary Pain in joint, lower leg documented in this encounter Care Teams Substance Abuse Technician Relationship Specialty Start Date End Date Yosvany Gonsalez MD [address] [place] [phone] PCP - General Internal Medicine 04/08/13 09/03/19 documented as of this encounter
--- OUTSIDE RECORDS SUMMARY | 2024-11-02 07:35 | XMS_ITS | Encounter Summary ---
Author Organization [facility] Address [address] [place] [address] Care Team Providers Care Box Stapler Name Role Phone Unavailable Primary Care Provider Unavailabl e Encounter Details Date Type Department Care Team (Late st Contact Info) Description 04/03/2013 Orders Only [facility] - Family Medicine [address] [place] [address], [address] [place] [address] Yosvany Gonsalez MD [address] [place] [address] [place] [address] Social History Tobacco Use Types Packs/Day Years Used Date Smoking Tobacco: Never Assessed Sex and Gender Information Value Date Recorded Sex Assigned at Not on file Gender Identity Not on file Sexual Orientation Not on file documented as of this encounter Plan of Treatment Not on file documented as of this encounter Procedures Procedure Name Priority Date/Time Associated Diagnosis Comments LIPID PROFILE W LDL/HDL RATIO 04/03/2013 7:47 AM CDT COMPREHENSIVE METABOLIC PANEL 04/03/2013 7:47 AM CDT documented in this encounter Results * LIPID PROFILE W LDL/HDL (PO REF [...] PM CDT Narrative Resulting Agency Comment [facility] [address] ??[facility] [phone] Yosvany Gonsalez MD LAB - CHEMISTRY VIVIANA ADAMS [facility] ACCOUNT BILL * COMPREHENSIVE METABOLIC PANEL (04/03/2013 7:47 AM CDT) Glucose 93 65 - 99 mg/dL [facility] ACCOUNT BILL BUN 13 6 - 24 mg/dL [facility] ACCOUNT BILL Creatinine 0.76 0.76 - 1.27 mg/dL [facility] ACCOUNT BILL eGFR by MDRD 101 >59 mL/min/1.7 3 [facility] ACCOUNT BILL eGFR by MDRD 116 >59 mL/min/1.7 3 [facility] ACCOUNT BILL BUN/Creatinine Ratio 17 9 - 20 [facility] ACCOUNT BILL Sodium 140 134 - 144 mmol/L [facility] ACCOUNT BILL Potassium 5.1 3.5 - 5.2 mmol/L [facility] ACCOUNT BILL Chloride 103 97 - 108 mmol/L [facility] ACCOUNT BILL CO2 23 20 - 32 mmol/L [facility] ACCOUNT BILL Calcium 9.2 8.7 - 10.2 mg/dL [facility] ACCOUNT BILL Protein Total 7.3 6.0 - 8.5 g/dL [facility] ACCOUNT BILL Albumin 4.6 3.5 - 5.5 g/dL [facility] ACCOUNT BILL Globulin Total 2.7 1.5 - 4.5 g/dL [facility] ACCOUNT BILL Albumin/Globulin Ratio 1.7 1.1 - 2.5 [facility] ACCOUNT BILL Bilirubin Total 0.5 0.0 - 1.2 mg/dL [facility] ACCOUNT BILL Alkaline Phosphatase 46 25 - 150 IU/L [facility] ACCOUNT BILL AST 20 0 - 40 IU/L [facility] ACCOUNT BILL ALT 21 0 - 44 IU/L [facility] ACCOUNT BILL 04/03/2013 7:47 AM CDT 04/03/2013 1:01 PM CDT Narrative Resulting Agency Comment [facility] [address] ??[facility] [phone] Yosvany Gonsalez MD LAB - CHEMISTRY VIVIANA ADAMS [facility] ACCOUNT BILL documented in this encounter Visit Diagnoses Not on filedocumented in this encounter
--- OUTSIDE RECORDS SUMMARY | 2024-11-02 07:43 | XMS_ITS | Encounter Summary ---
Author Organization [facility] Address [address] [place] [address]. [place], [place] [address] [place] [address] Care Team Providers Care Lodging Facilities Manager Name Role Phone Ilir Nelson Primary Care Provider [phone] Encounter Details Date Type Department Care Team (Latest Contact Info) Description 10/09/2024 Travel Social History Tobacco Use Types Packs/Day Years Used Date Smoking Tobacco: Every Day Cigarettes 0.3 50 Smokeless Tobacco: Never Comments:pT HAS CUT BACK AND IS SMOKING ABOUT 5 CIG A DAY Alcohol Use Standard Drinks/Week Comments Yes 23.3 (1 standard drink = 0.6 oz pure alcohol) daily AUDIT-C Answer Date Recorded Q1: How often do you have a drink containing alcohol? 4 or more times a week 07/29/2024 Q2: How many drinks containi ng alcohol do you have on a typical day when you are drinking? 1 or 2 Q3: How often do you have si x or more drinks on one occasion? Weekly 07/29/2024 PHQ-2 Answer Date Recorded Patient Health Questionnaire-2 Score 0 07/29/2024 Sex and Gender Information Value Date Recorded Sex Assigned at Not on file Legal Sex Male 9:58 PM CERAMIC ENGINEER Gender Identity Not on file Sexual Orientation Not on file documented as of this encounter Functional Status * RETIRED Are you deaf or do you have serious difficulty hearing Answer Date of Assessment Author Status No 10/02/2021 12:38 PM CERAMIC ENGINEER Acti ve * RETIRED Are you blind or do you have serious difficulty seeing, even when wearing glasses? Answer Date of Assessment Author Status No 10/02/2021 12:38 PM CERAMIC ENGINEER Acti ve * Do you have serious difficulty walking or climbing stairs? Answer Date of Assessment Author Status No 10/02/2021 12:38 PM CERAMIC ENGINEER Annette Jorge R N Active * Do you have difficulty dressing or bathing? Answer Date of Assessment Author Status No 10/02/2021 12:38 PM CERAMIC ENGINEER Annette Jorge R N Active * Because of a physical, mental, or emotional condition, do you have difficulty doing errands alone such as visiting a doctor's office or shopping? Answer Date of Assessment Author Status No 10/02/2021 12:38 PM CERAMIC ENGINEER Annette Jorge R N Active documented as of this encounter Mental Status * Because of a physical, mental, or emotional condition, do you have serious difficulty concentrating, remembering, or making decisions? Answer Entry Date Author Status No 10/02/2021 12:38 PM CERAMIC ENGINEER Annette Jorge R N Active documented in this encounter Plan of Treatment Upcoming Encounters Date Type Department Care Team (Late st Contact Info) Description 01/27/2025 7:00 AM CDT Office Visit [facility] Family & Internal Medicine [facility] [address] [place] [address] [place] [id number] [place] [phone] 10/22/2025 9:15 AM CERAMIC ENGINEER Office Visit [facility] [phone] Mily Gan MD [address] [address] documented as of this encounter Goals Goal Patient Goal Type Associated Problems Recent Progress Patient-Stated? Author Establish Plan for Symptom Monitoring General No Jesi Cochran RN Monitor - demonstrates appropriate technique of care of indwelling urinary catheter and new ostomy General No Jesi Cochran RN Patient will return to prior living situation and remain independent in ADLs upon discharge from hospital General No Aliya Stokes RN documented as of this encounter Visit Diagnoses Not on filedocumented in this encounter Additional Health Concerns Assessment Noted Time PHQ-9 Depression Total Score: 1 07/29/20 24 7:03 AM CDT documented as of this encounter Care Teams Lodging Facilities Manager Relationship Specialty [place] [address] [place] [address] PCP - General Physician Armed Custom Protection Officer Medical 01/06/24 documented as of this encounter
--- OUTSIDE RECORDS SUMMARY | 2024-11-02 07:43 | XMS_ITS | Clinical Summary ---
Author Organization [facility] Address [address] [place] [address]. [place], [place] [address] [place] [address] Care Team Providers Care Customer Service Cashier Name Role Phone Ilir Nelson Primary Care Provider [phone] Allergies Active Allergy Reactions Criticality Noted Date Comments Morphine Itching Medium 09/09/2016 Medications Vitamin E 400 units TabIndications:Nu tritional Support Take 400 Units by mouth daily. Indications: Nutritional Support Active Cholecalciferol (VITAMIN D) 50 MCG (1999 UT) CapIndications:Vi tamin D Deficiency Take 50 mcg by mouth daily. Indications: Vitamin D Deficiency Active aspirin 81 MG chewable tabletIndications :Anticoagulant Therapy Chew 1 tablet (81 mg total) by mouth nightly at bedtime. Indications: Anticoagulant Therapy Active Ascorbic Acid (VITAMIN C) 100 MG tabletIndications :Vitamin and/or Mineral Deficiency Take 1 tablet (100 mg total) by mouth daily. Indications: Vitamin and/or Mineral Deficiency Active zinc gluconate 50 MG TabIndications:Nu tritional Support Take 1 tablet (50 mg total) by mouth daily. Indications: Nutritional Support Active amoxicillin (AMOXIL) 500 MG capsule Take 1 capsule (500 mg total) by mouth as needed ( NEEDED FOR DENTAL PROCEDURE). 024 Active atorvastatin (LIPITOR) 40 MG tabletIndications :Mixed hyperlipidemia TAKE 1 TABLET BY MOUTH AT BEDTIME CHANGE FROM PRAVASTATIN DUE TO CHOLESTEROL NOT AT GOAL 100 tablet 2 024 Active metoprolol succinate ER (TOPROL-XL) 25 MG 24 hr tabletIndications :Primary hypertension TAKE 1 TABLET BY MOUTH DAILY 100 tablet 2 024 Active tamsulosin (FLOMAX) 0.4 MG CapIndications:Be nign prostatic hyperplasia without lower urinary tract symptoms TAKE 1 CAPSULE BY MOUTH DAILY 100 capsule 2 024 Active CPAP SUPPLIESIndicatio ns:RANDY on CPAP 1 Units by Does not apply route nightly at bedtime. Mask, tubing & filters 1 Device 3 020 2023 Discontinued tamsulosin (FLOMAX) 0.4 MG CapIndications:Be nign prostatic hyperplasia without lower urinary tract symptoms Take 1 capsule (0.4 mg total) by mouth daily. 90 capsule 1 024 2023 Discontinued Active Problems Problem Noted Date Diagnosed Date Emphysema, unspecified ([facility]) 023 Primary hypertension 07/25/2023 BPH with obstruction/lower urinary tract symptom s 07/25/2023 Tobacco abuse 07/25/2023 Left shoulder pain 01/16/2023 Rotator cuff tear, left 01/16/2023 S/P laparoscopic procedure 09/22/2021 Status post Neel procedure ([facility]) 04/02/2021 Bowel perforation ([facility]) 03/18/2021 Perforated diverticulum 03/18/2021 Pharyngoesophageal dysphagia 02/25/2021 Overview (02/25/2021): Added automatically from request for surgery [id number] Cervical stenosis of spinal canal 10/02/2018 H/O nicotine dependence 09/21/2018 RANDY on CPAP 10/16/2015 Hyperlipidemia 04/15/2013 Encounters Date Type Department Care Team Description 10/09/2024 9:45 AM AOC AIRSPACE CONTROL OFFICER Office Visit [facility] [address] [facility] [place] [address] Savannah Thomason PA-C Follow Up (PAF) 10/09/2024 Travel 09/09/2024 Scan HEALTH INFO SRVCS Scanned, [facility] 08/15/2024 Scan HEALTH INFO SRVCS Scanned, [facility] from Last 3 Months Immunizations Name Administration Dates Next Due Fluzone High Dose - >Age 65 (Prefilled Syringe) 08/08/2023,07/14/2021,07/21/2020,2019,08/20/2019 Influenza (Generic) 10/06/2014 Influenza Adult (Generic) 08/25/2022,,10/19/2016,2014 MODERNA COVID-19 (12+) MRNA, LNP-S, PF, 100 MCG/ 0.5 ML DOSE 08/25/2022,01/14/2021,12/17/2020 MODERNA COVID-19 (12+), MRNA , LNP-S, PF, 50 MCG/0.5 ML (SPIKEVAX) 08/08/2023 MODERNA COVID-19 (DIRECTOR OF COMPLIANCE ROBBI ROSINA), MRNA, LNP-S, PF, 50 MCG/ 0.25 ML DOSE 11/08/2021 Pneumococcal (Pneumovax 23) 01/15/2020 Pneumococcal (Prevnar 13) 08/06/2019,10/20/2016, 10/16/2016 Shingrix 03/08/2023,12/05/2022 Tdap (Generic) 01/05/2020 Family History Medical History Relation Comments Lung Cancer Brother 1 COPD Brother 2 Cancer Father Heart Disease Father Throat cancer Father Arthritis in Adults Mother Dementia Mother at the end per patient Hypertension Mother Cancer Sister Relation Status Comments Brother 1 Brother 2 Father Mother Sister Social History Tobacco Use Types Packs/Day Years Used Date Smoking Tobacco: Every Day Cigarettes 0.3 50 Smokeless Tobacco: Never Tobacco Cessation:Ready to Q uit: Not Asked; Counseling Given: Yes Comments:pT HAS CUT BACK AND IS SMOKING [...] on file Legal Sex Male 9:58 PM AOC AIRSPACE CONTROL OFFICER Gender Identity Not on file Sexual Orientation Not on file Last Filed Vital Signs Vital Sign Reading Time Taken Comments Blood Pressure 128/70 10/09/2024 9:43 AM AOC AIRSPACE CONTROL OFFICER Pulse 70 10/09/2024 9:43 AM AOC AIRSPACE CONTROL OFFICER Temperature 36.5 ??C (97.7 ??F) 07/29/2024 7:01 AM CD T Respiratory Rate 16 07/29/2024 7:01 AM CDT Oxygen Saturation 98% 10/09/2024 9:43 AM AOC AIRSPACE CONTROL OFFICER Inhaled Oxygen Concentration - - Weight 77.7 kg (171 lb 3.2 oz) 10/09/2024 9:43 A M AOC AIRSPACE CONTROL OFFICER Height 170.2 cm (5' 7 ) 10/09/2024 9:43 AM AOC AIRSPACE CONTROL OFFICER Body Mass Index 26.81 10/09/2024 9:43 AM AOC AIRSPACE CONTROL OFFICER Plan of Treatment Upcoming Encounters Date Type Department Care Team (Late st Contact Info) Description 01/27/2025 7:00 AM CDT Office Visit [facility] Family & Internal Medicine [facility] [address] [place] [address] [place] [address] [place] [address] 10/22/2025 9:15 AM AOC AIRSPACE CONTROL OFFICER Office Visit [facility] [phone] Mily Gan MD [facility]. [address] [id number] Health Maintenance Due Date Last Done Comments RSV Immunization or 60+ Years (1 - Risk 60-74 years 1-dose series) 2014 COVID-19 Vaccine ( season) 2024 08/08/2023, 08/25/2022, 11/08/2021, Additional history exists Annual Medicare Wellness Visit 07/30/2025 07/29/2024 DTaP, Tdap and Td Vaccines (2 - Td or Tdap) 01/04/2030 01/05/2020 Colorectal Cancer Screening Colonoscopy (10 Years) 08/13/2031 08/13/2021, 08/13/2021 Pneumococcal Vaccine: 65+ Years Completed 01/15/2020, 08/06/2019, 10/20/2016, Additional history exists Hepatitis C Completed 01/06/2021 AAA SCREENING Completed 03/18/2021, 01/15/2021 Zoster Vaccines Completed 03/08/2023, 12/05/2022 Influenza Adult Completed 08/23/2024, 01/2023, 08/25/2022, Additional history exists Meningococcal Vaccine Aged Out No mary pepito eligible based on patient's age to complete this topic RSV Immunizations Under 20 Months Aged Out No longer eligible based on patient's age to complete this topic Goals Goal Patient Goal Type Associated Problems Recent Progress Patient-Stated? Author Establish Plan for Symptom Monitoring General Jesi Ye RN Monitor - demonstrates appropriate technique of care of indwelling urinary catheter and new ostomy General Jesi Ye, GINA Patient will return to prior living situation and remain independent in ADLs upon discharge from hospital General Aliya Sotelo RN Procedures Procedure Name Priority Date/Time Associated Diagnosis Comments COLONOSCOPY GENERIC (SCAN ORDER) Routine 08/13/2021 CT ABD+PEL W CON STAT 03/18/2021 10:5 4 AM CDT HEPATITIS C ANTIBODY Routine 01/06/2021 7:11 AM AOC AIRSPACE CONTROL OFFICER Need for hepatitis C screening test from Last 3 Months or Most Recently Relevant to Health Maintenance Results * COLONOSCOPY (08/13/2021) us Documents Scanned SCANNING Final Result [facility] * CT ABD+PEL W IV CON ONLY (03/18/2021 10:54 AM CDT) Anatomical Region Laterality Modality Abdomen Computed Tomogra phy 03/18/2021 11:0 8 AM CDT Addenda Addendum by Norman Smallwood MD on 03/18/2021 12:04 PM CDT ADDENDUM: I reviewed the findings with Dr. Barajas at 1158 hours. Referred By: LAURI ALANIS Interpreted By: Norman Smallwood, 03/18/2021 12:00 PM Impressions 03/18/2021 11:32 AM CDT IMPRESSION: Abdominal free air consistent with bowel perforation. Approximately 3 cm x 3.7 cm dense stool ball in the sigmoid colon near the area of inflammation and air. Several sigmoid diverticula also in the region suggesting the source may be perforated diverticulum. Air tracking in the mesentery to the upper abdomen including subdiaphragmatic space. I discussed findings with Lauri Alanis in the emergency department at 1120 hours. Referred By: LAURI ALANIS Interpreted By: Norman Smallwood, 03/18/2021 11:08 AM Narrative 03/18/2021 11:32 AM CDT IMAGING STUDIES: ??CT ABD+PEL W CON ? DATE: ??03/18/2021 10:38 AM HISTORY: ??RLQ abdominal pain, appendicitis suspected (Age >= 14y) ? 65-year-old male with right lower quadrant abdominal pain COMPARISON: ??Ultrasound abdominal aorta 01/15/2021 DISCUSSION: CT abdomen and pelvis following intravenous administration 75 ml Isovue-370 contrast. ??Arterial and venous phase imaging. ??Coronal and sagittal reconstructions. ??No enteric contrast. ??Automated exposure control with radiation dose reduction. CHEST: No acute infiltrate or consolidation in the lung bases. Minimal right lower lobe subsegmental atelectasis. CARDIOVASCULAR: Heart size normal. No pericardial effusion. Atherosclerotic calcification of the abdominal aorta, aortic branch vessels, and iliac arteries. Mild dilation of the infrarenal abdominal aorta to 2 cm diameter. For comparison, aorta near the level of the renal artery origins is 1.7 cm. UPPER ABDOMEN: Minimal dependent density in the gallbladder could be sludge or tiny gallstones. No acute abnormality of the liver, common bile duct, pancreas, spleen, and adrenal glands. GENITOURINARY: Breathing motion artifacts limiting renal evaluation. Bilateral subcentimeter renal cysts. No hydronephrosis or hydroureter. Moderately enlarged prostate with a few dystrophic calcifications. Indentation of the inferior urinary bladder by the prostate. LYMPHATIC: No pathologic adenopathy. GASTROINTESTINAL: Abdominal free air. Inflammation with minimal pelvic fluid and adjacent air in the sigmoid colon in the region of a 3 x 3.7 cm dense stool ball. Several diverticula in the region suggesting free air may be due to perforated diverticulum. No appendicitis. MUSCULOSKELETAL: Degenerative changes spine, pelvis, and hips. Spinal degenerative changes greatest at L5-S1 level. Procedure Note Norman Smallwood MD - 03/18/2021 IMAGING STUDIES: CT ABD+PEL W CON DATE: 03/18/2021 10:38 AM HISTORY: RLQ abdominal pain, appendicitis suspected (Age >= 14y) 65-year-old male with right lower quadrant abdominal pain COMPARISON: Ultrasound abdominal aorta 01/15/2021 DISCUSSION: CT abdomen and pelvis following intravenous administration 75 mlIsovue-370 contrast. Arterial and venous phase imaging. Coronal and sagittal reconstructions. No enteric contrast. Automated exposure control with radiation dose reduction. CHEST: No acute infiltrate or consolidation in the lung bases. Minimal right lower lobe subsegmental atelectasis. CARDIOVASCULAR: Heart size normal. No pericardial effusion.Atherosclerotic calcification of the abdominal aorta, aortic branch vessels, and iliac arteries. Mild dilation of the infrarenal abdominal aorta to 2 cmdiameter. For comparison, aorta near the level of the renal artery origins is 1.7cm. UPPER ABDOMEN: Minimal dependent density in the gallbladder could besludge or tiny gallstones. No acute abnormality of the liver, common bile duct, pancreas, spleen, and adrenal glands. GENITOURINARY: Breathing motion artifacts limiting renal evaluation. Bilateral subcentimeter renal cysts. No hydronephrosis or hydroureter. Moderately enlarged prostate with a few dystrophic calcifications. Indentation of the inferior urinary bladder by the prostate. LYMPHATIC: No pathologic adenopathy. GASTROINTESTINAL: Abdominal free air. Inflammation with minimal pelvic fluid and adjacent air in the sigmoid colon in the region of a 3 x 3.7cm dense stool ball. Several diverticula in the region suggesting free airmay be due to perforated diverticulum. No appendicitis. MUSCULOSKELETAL: Degenerative changes spine, pelvis, and hips. Spinal degenerative changes greatest at L5-S1 level. IMPRESSION: Abdominal free air consistent with bowel perforation. Approximately 3 cmx 3.7 cm dense stool ball in the sigmoid colon near the area ofinflammation and air. Several sigmoid diverticula also in the region suggesting the source may be perforated diverticulum. Air tracking in the mesentery tothe upper abdomen including subdiaphragmatic space. I discussed findings with Lauri Alanis in the emergency department [id number] hours. Referred By: LAURI ALANIS Interpreted By: Norman Smallwood, 03/18/2021 11:08 AM Lauri Alanis MD,PHD CT Edited Res ult - Final * HEPATITIS C ANTIBODY (01/06/2021 7:11 AM AOC AIRSPACE CONTROL OFFICER) HEPATITIS C AB NON-REACTI VE NON-REACTI VE 01/06/2021 3:24 PM AOC AIRSPACE CONTROL OFFICER [facility] 01/06/2021 7:11 AM AOC AIRSPACE CONTROL OFFICER Lorie Chan MD LABORATORY Final Result [facility] [address] [place] [address], [place] [phone] from Last 3 Months or Most Recently Relevant to Health Maintenance Insurance Advance Directives * Full Code (Latest Code Status on File) Date Activated Date Inactivated Comments 10/11/2021 12:48 PM * Full Code Date Activated Date Inactivated Comments 10/06/2021 3:27 PM 10/11/2021 12:47 PM * Full Code Date Activated Date Inactivated Comments 09/22/2021 4:07 PM 10/02/2021 5:06 PM * Full Code Date Activated Date Inactivated Comments 03/24/2021 4:20 PM 08/13/2021 8:20 AM * Full Code Date Activated Date Inactivated Comments 03/18/2021 1:52 PM 03/23/2021 3:23 PM Care Teams Customer Service Cashier Relationship Specialty [place] [address] [place] [address] PCP - General Physician Manager [employer] 01/06/24
--- OUTSIDE RECORDS SUMMARY | 2024-11-02 07:44 | XMS_ITS | Encounter Summary ---
Author Organization [facility] Address [address] [place] [address]. [place] [address] [place] [address] Care Team Providers Care Beauty Artist Name Role Phone Ilir Nelson Primary Care Provider [phone] Reason for Visit * Reason Comments Follow Up PAF Encounter Details Date Type Department Care Team (Late st Contact Info) Description 10/09/2024 9:45 AM CLIENT CARE CONSULTANT Office Visit [facility] [address] Savannah Thomason PA-C [address] [address] Follow Up (PAF) Social History Tobacco Use Types Packs/Day Years [...] on file Legal Sex Male 9:58 PM CLIENT CARE CONSULTANT Gender Identity Not on file Sexual Orientation Not on file documented as of this encounter Last Filed Vital Signs Vital Sign Reading Time Taken Comments Blood Pressure 128/70 10/09/2024 9:43 AM CLIENT CARE CONSULTANT Pulse 70 10/09/2024 9:43 AM CLIENT CARE CONSULTANT Temperature - - Respiratory Rate - - Oxygen Saturation 98% 10/09/2024 9:43 AM CLIENT CARE CONSULTANT Inhaled Oxygen Concentration - - Weight 77.7 kg (171 lb 3.2 oz) 10/09/2024 9:43 A M CLIENT CARE CONSULTANT Height 170.2 cm (5' 7 ) 10/09/2024 9:43 AM CLIENT CARE CONSULTANT Body Mass Index 26.81 10/09/2024 9:43 AM CLIENT CARE CONSULTANT documented in this encounter Functional Status * RETIRED Are you deaf or do you have serious difficulty hearing Answer Date of Assessment Author Status No 10/02/2021 12:38 PM CLIENT CARE CONSULTANT Acti ve * RETIRED Are you blind or do you have serious difficulty seeing, even when wearing glasses? Answer Date of Assessment Author Status No 10/02/2021 12:38 PM CLIENT CARE CONSULTANT Acti ve * Do you have serious difficulty walking or climbing stairs? Answer Date of Assessment Author Status No 10/02/2021 12:38 PM CLIENT CARE CONSULTANT Annette Jorge R N Active * Do you have difficulty dressing or bathing? Answer Date of Assessment Author Status No 10/02/2021 12:38 PM CLIENT CARE CONSULTANT Annette Jorge R N Active * Because of a physical, mental, or emotional condition, do you have difficulty doing errands alone such as visiting a doctor's office or shopping? Answer Date of Assessment Author Status No 10/02/2021 12:38 PM CLIENT CARE CONSULTANT Annette Jorge R N Active documented as of this encounter Mental Status * Because of a physical, mental, or emotional condition, do you have serious difficulty concentrating, remembering, or making decisions? Answer Entry Date Author Status No 10/02/2021 12:38 PM CLIENT CARE CONSULTANT Annette Jorge R N Active documented in this encounter Progress Notes * Savannah Thomason PA-C - 10/09/2024 9:45 AM CST Reason for Visit: Follow Up (PAF) History of Present Illness: Natan Patel is a 69-year-old male with a past medical history of paroxysmal atrial fibrillation, hypertension, RANDY on CPAP, and hyperlipidemia here today for scheduled follow up appointment. Patient has been doing well since his last office visit. No new chest pain, dyspnea, palpitations, near-syncope, fatigue, orthopnea, claudication, or lower extremity edema. Patient remains mindful of hisdiet and tries to remain as active as possible. Patient reports that overall he doing well from an electrophysiology standpoint. Recommendations and Plan: 1. Paroxysmal Atrial Fibrillation: post operative in 2020. 2. Hypertension: stable 3. Dyslipidemia: on statin therapy Overall Natan Patel is doing well from an electrophysiology standpoint. He denies any awareness of recurrent atrial fibrillation at this time. Previous event monitor with no significant A.Fib burden noted. He will contact us should he feeling any palpitations or irregular heart beats. His blood pressure is overall well controlled on his current regimen. He continues on statin therapy for hisdyslipdemia. Last LDL was 93. He has RANDY and is compliant with his CPAP. Encouraged his to remain active and mindful of his diet. It is my pleasure to participate in Natan Masters care. We will follow up with the patient in 1year or sooner if needed. Medications: Current Outpatient Medications: Ascorbic Acid (VITAMIN C) 100 MG tablet, Take 1 tablet (100 mg total) by mouth daily. Indications: Vitamin and/or Mineral Deficiency, Disp: , Rfl: aspirin 81 MG chewable tablet, Chew 1 tablet (81 mg total) by mouth nightly at bedtime. Indications: Anticoagulant Therapy, Disp: , Rfl: atorvastatin (LIPITOR) 40 MG tablet, TAKE 1 TABLET BY MOUTH AT BEDTIME CHANGE FROM PRAVASTATIN DUE TO CHOLESTEROL NOT AT GOAL, Disp: 100 tablet, Rfl: 2 Cholecalciferol (VITAMIN D) 50 MCG (1999 UT) Cap, Take 50 mcg by mouth daily. Indications: Vitamin D Deficiency , Disp: , Rfl: metoprolol succinate ER (TOPROL-XL) 25 MG 24 hr tablet, TAKE 1 TABLET BY MOUTH DAILY, Disp: 100 tablet, Rfl: 2 tamsulosin (FLOMAX) 0.4 MG Cap, Take 1 capsule (0.4 mg total) by mouth daily., Disp: 90 capsule, Rfl: 1 Vitamin E 400 units Tab, Take 400 Units by mouth daily. Indications: Nutritional Support, Disp: , Rfl: zinc gluconate 50 MG Tab, Take 1 tablet (50 mg total) by mouth daily. Indications: Nutritional Support, Disp: , Rfl: amoxicillin (AMOXIL) 500 MG capsule, Take 1 capsule (500 mg total) by mouth as needed ( NEEDED FOR DENTAL PROCEDURE). (Patient not taking: Reported on 07/29/2024), Disp: , Rfl: Review of patient's allergies indicates: Allergen Reactions Morphine Itching Past Medical History: Diagnosis Date Anxiety Arthritis Cataract Cervical stenosis of spine Hyperlipidemia Influenza vaccine administered RANDY (obstructive sleep apnea) Past Surgical History: Procedure Laterality Date COLON SURGERY 03/18/2021 colostomy r/t perferation COLON SURGERY 09/22/2021 COLONOSCOPY N/A 2013 COLONOSCOPY N/A 08/13/2021 colonoscopy via rectum and ostomy with polypectomy and biopsy performed by Federico Mayer MD at [facility] OR COLOSTOMY reversable HERNIA REPAIR Right [facility] HERNIA REPAIR Left [facility] JOINT REPLACEMENT NECK/CHEST PROCEDURE UNLISTED Right [facility], re-built right side of neck. REMOVAL OF SPERM DUCT(S) SMALL INTESTINE SURGERY bowel rupture TOTAL KNEE ARTHROPLASTY Bilateral ZANA Partial KR, done @ [facility] Social History Tobacco Use Smoking status: Every Day Current packs/day: 0.25 Average packs/day: 0.3 packs/day for 50.0 years (12.5 ttl pk-yrs) Types: Cigarettes Smokeless tobacco: Never Tobacco comments: pT HAS CUT BACK AND IS SMOKING ABOUT 5 CIG A DAY Vaping Use Vaping status: Never Used Substance Use Topics Alcohol use: Yes Alcohol/week: 23.3 standard drinks of alcohol Types: 14 Cans of beer per week Comment: daily Drug use: Not Currently Family History Problem Relation Name Age of Onset Arthritis in Adults Mother [place] Dementia Mother [place] at the end per patient Hypertension Mother [place] Throat cancer Father Jose Heart Disease Father [place] Cancer Father Jose Lung Cancer Brother COPD Brother Jacinto Cancer Sister Roxy Family Status Relation Name Status Mother Jose Father Jose Brother Brother Jacinto Sister Roxy No partnership data on file Review of Systems Constitutional: Negative for recent unintentional weight gain, recent unintentional weight loss andnew or significant fatigue. HENT: Negative for new or significant hearing loss. Eyes: Negative for blurred vision and double vision. Respiratory: Negative for cough, new or significant shortness of breath and snoring. Cardiovascular: See HPI. Gastrointestinal: Negative for blood in stool and melena. Genitourinary: Negative for dysuria. Musculoskeletal: Negative for myalgias and new or worsening joint stiffness/pain. Skin: Negative for rash. Neurological: Negative for tingling/numbness and focal weakness. Endo/Heme/Allergies: Negative for new or significant bruising/bleeding and polydipsia. Psychiatric/Behavioral: Negative for depression and new or significant memory loss. Vitals: 10/09/24 0943 BP: 128/70 Patient Position: Sitting BP Location: Left arm Pulse: 70 Weight: 77.7 kg (171 lb 3.2 oz) Height: 1.702 m (5' 7 ) Body mass index is 26.81 kg/m??. Cardiac Exam Rate/Rhythm: Normal rate and regular rhythm. PMI: PMI is not displaced. Pulses: Heart Sounds: Normal heart sounds. Normal S1 sounds. Normal S2 sounds. No gallop present. No S3. NoS4. Murmurs: Negative for edema. Physical Exam Constitutional: No distress. Healthy Appearance. HENT: Oropharynx clear. Eyes: Conjunctivae normal. Neck: Neck supple. No JVD. Abdomen: No distension. Pulmonary: Effort normal. Breath sounds normal. Skin: No rash. No cyanosis. No clubbing. Musculoskeletal: No kyphosis. Normal ROM. Neurological: Alert. Oriented x 3. Appropriate mood and affect. Normal motor skills. Normal gait. Comments: Diagnoses/Impression: 1. PAF (paroxysmal atrial fibrillation) ([facility]) 2. RANDY on CPAP 3. Mixed hyperlipidemia 4. Primary hypertension Referring Provider: No ref. provider found PCP: GERI ARREGUIN NT CARE CONSULTANT documented in this encounter Plan of Treatment Upcoming Encounters Date Type Department Care Team (Late st Contact Info) Description 01/27/2025 7:00 AM CDT Office Visit [facility] Family & Internal Medicine [address] [address] [place] [address] [place] [address] 10/22/2025 9:15 AM CLIENT CARE CONSULTANT Office Visit [facility] [address] Mily Gan MD [facility] [address] [place] [address] documented as of this encounter Goals Goal Patient Goal Type Associated Problems Recent Progress Patient-Stated? Author Establish Plan for Symptom Monitoring General Jesi Ye RN Monitor - demonstrates appropriate technique of care of indwelling urinary catheter and new ostomy General Jesi Ye RN Patient will return to prior living situation and remain independent in ADLs upon discharge from hospital General No Aliya Stokes RN documented as of this encounter Visit Diagnoses Diagnosis PAF (paroxysmal atrial fibrillation) ([facility] Primary Atrial fibrillation RANDY on CPAP Obstructive sleep apnea (adult) (pediatric) Mixed hyperlipidemia Primary hypertension Unspecified essential hypertension documented in this encounter Additional Health Concerns Assessment Noted Time PHQ-9 Depression Total Score: 1 07/29/20 24 7:03 AM CDT documented as of this encounter Care Teams Beauty Artist Relationship Specialty [place] [address] [place] [address] PCP - General Physician Materials Mgmt Tech Medical 01/06/24 documented as of this encounter
--- OUTSIDE RECORDS SUMMARY | 2024-11-02 07:45 | XMS_ITS | Encounter Summary ---
Author Organization [facility] Address [address] [place] [address]. [place], [place] [address] [place] [address] Care Team Providers Care Curtain Cleaner Name Role Phone Ilir Nelson Primary Care Provider [phone] Encounter Details Date Type Department Care Team (Latest Contact Info) Description 08/15/2024 Scan HEALTH INFO SRVCS Scanned, Doc Med Group Social History Tobacco Use Types Packs/Day Years [...] on file Legal Sex Male 9:58 PM MICA SIZER Gender Identity Not on file Sexual Orientation Not on file documented as of this encounter Functional Status * RETIRED Are you deaf or do you have serious difficulty hearing Answer Date of Assessment Author Status No 10/02/2021 12:38 PM MICA SIZER Acti ve * RETIRED Are you blind or do you have serious difficulty seeing, even when wearing glasses? Answer Date of Assessment Author Status No 10/02/2021 12:38 PM MICA SIZER Acti ve * Do you have serious difficulty walking or climbing stairs? Answer Date of Assessment Author Status No 10/02/2021 12:38 PM MICA SIZER Annette Jorge R N Active * Do you have difficulty dressing or bathing? Answer Date of Assessment Author Status No 10/02/2021 12:38 PM MICA SIZER Annette Jorge R N Active * Because of a physical, mental, or emotional condition, do you have difficulty doing errands alone such as visiting a doctor's office or shopping? Answer Date of Assessment Author Status No 10/02/2021 12:38 PM MICA SIZER Annette Jorge R N Active documented as of this encounter Mental Status * Because of a physical, mental, or emotional condition, do you have serious difficulty concentrating, remembering, or making decisions? Answer Entry Date Author Status No 10/02/2021 12:38 PM MICA SIZER Annette Jorge R N Active documented in this encounter Plan of Treatment Upcoming Encounters Date Type Department Care Team (Late st Contact Info) Description 01/27/2025 7:00 AM CDT Office Visit [facility] Family & Internal Medicine [facility] [address] [place] [address] [place] [address] [place], [place] [phone] 10/22/2025 9:15 AM MICA SIZER Office Visit [facility] [address] Mily Gan MD [address] [phone] documented as of this encounter Goals Goal Patient Goal Type Associated Problems Recent Progress Patient-Stated? Author Establish Plan for Symptom Monitoring General No Jesi Cochran RN Monitor - demonstrates appropriate technique of care of indwelling urinary catheter and new ostomy General No Bernardini, Jesi J, RN Patient will return to prior living situation and remain independent in ADLs upon discharge from hospital General Aliya Sotelo RN documented as of this encounter Visit Diagnoses Not on filedocumented in this encounter Additional Health Concerns Assessment Noted Time PHQ-9 Depression Total Score: 1 07/29/20 24 7:03 AM CDT documented as of this encounter Care Teams Curtain Cleaner Relationship Specialty [place] [address] [place] [address] PCP - General Physician Plant Tender Medical 01/06/24 documented as of this encounter
--- OUTSIDE RECORDS SUMMARY | 2024-11-02 07:45 | XMS_ITS | Encounter Summary ---
Author Organization [facility] Address [address] [place] [address]. [place], [place] [address] [place] [address] Care Team Providers Care Fly Frame Tender Name Role Phone Ilir Nelson Primary Care Provider [phone] Encounter Details Date Type Department Care Team (Latest Contact Info) Description 09/09/2024 Scan HEALTH INFO SRVCS Scanned, Doc [...] on file Legal Sex Male 9:58 PM J2EE PROGRAMMER Gender Identity Not on file Sexual Orientation Not on file documented as of this encounter Functional Status * RETIRED Are you deaf or do you have serious difficulty hearing Answer Date of Assessment Author Status No 10/02/2021 12:38 PM J2EE PROGRAMMER Acti ve * RETIRED Are you blind or do you have serious difficulty seeing, even when wearing glasses? Answer Date of Assessment Author Status No 10/02/2021 12:38 PM J2EE PROGRAMMER Acti ve * Do you have serious difficulty walking or climbing stairs? Answer Date of Assessment Author Status No 10/02/2021 12:38 PM J2EE PROGRAMMER Annette Jorge R N Active * Do you have difficulty dressing or bathing? Answer Date of Assessment Author Status No 10/02/2021 12:38 PM J2EE PROGRAMMER Annette Jorge R N Active * Because of a physical, mental, or emotional condition, do you have difficulty doing errands alone such as visiting a doctor's office or shopping? Answer Date of Assessment Author Status No 10/02/2021 12:38 PM J2EE PROGRAMMER Annette Jorge R N Active documented as of this encounter Mental Status * Because of a physical, mental, or emotional condition, do you have serious difficulty concentrating, remembering, or making decisions? Answer Entry Date Author Status No 10/02/2021 12:38 PM J2EE PROGRAMMER Annette Jorge R N Active documented in this encounter Plan of Treatment Upcoming Encounters Date Type Department Care Team (Late st Contact Info) Description 01/27/2025 7:00 AM CDT Office Visit [facility] Family & Internal Medicine [facility] [address] [place] [address] [place] [address] [place], [place] [phone] 10/22/2025 9:15 AM J2EE PROGRAMMER Office Visit [facility] [address] Mily Gan MD [address] [phone] documented as of this encounter Goals Goal [...] documented as of this encounter Care Teams Fly Frame Tender Relationship Specialty [place] [address] [place] [address] PCP - General Physician Mortician Investigator Medical 01/06/24 documented as of this encounter
--- OUTSIDE RECORDS SUMMARY | 2024-11-02 07:46 | XMS_ITS | Encounter Summary ---
Author Organization [facility] Address [address] [place] [address]. [place], [place] [address] [place] [address] Care Team Providers Care Laser Beam Trim Operator Name Role Phone Ilir Nelson Primary Care Provider [phone] Encounter Details Date Type Department Care Team (Latest Contact Info) Description 07/29/2024 Scan MG HEALTH INFO SRVCS Scanned, Doc Med Group [...] file Legal Sex Male 9:58 PM MICA PARTS SPRAYER Gender Identity Not on file Sexual Orientation Not on file documented as of this encounter Functional Status * RETIRED Are you deaf or do you have serious difficulty hearing Answer Date of Assessment Author Status No 10/02/2021 12:38 PM MICA PARTS SPRAYER Acti ve * RETIRED Are you blind or do you have serious difficulty seeing, even when wearing glasses? Answer Date of Assessment Author Status No 10/02/2021 12:38 PM MICA PARTS SPRAYER Acti ve * Do you have serious difficulty walking or climbing stairs? Answer Date of Assessment Author Status No 10/02/2021 12:38 PM MICA PARTS SPRAYER Annette Jorge R N Active * Do you have difficulty dressing or bathing? Answer Date of Assessment Author Status No 10/02/2021 12:38 PM MICA PARTS SPRAYER Annette Jorge R N Active * Because of a physical, mental, or emotional condition, do you have difficulty doing errands alone such as visiting a doctor's office or shopping? Answer Date of Assessment Author Status No 10/02/2021 12:38 PM MICA PARTS SPRAYER Annette Jorge R N Active documented as of this encounter Mental Status * Because of a physical, mental, or emotional condition, do you have serious difficulty concentrating, remembering, or making decisions? Answer Entry Date Author Status No 10/02/2021 12:38 PM MICA PARTS SPRAYER Annette Jorge R N Active documented in this encounter Plan of Treatment Upcoming Encounters Date Type Department Care Team (Late st Contact Info) Description 01/27/2025 7:00 AM CDT Office Visit [facility] Family & Internal Medicine [facility] [address] [place] [address] [place] [address] [place], [place] [phone] 10/22/2025 9:15 AM MICA PARTS SPRAYER Office Visit [facility] [address] Mily Gan MD [address] [phone] documented as of this encounter Goals Goal [...] documented as of this encounter Care Teams Laser Beam Trim Operator Relationship Specialty [place] [address] [place] [address] PCP - General Physician Brim Molder Medical 01/06/24 documented as of this encounter
--- OUTSIDE RECORDS SUMMARY | 2024-11-02 07:46 | XMS_ITS | Encounter Summary ---
Author Organization [facility] Address [address] [place] [address]. [place] [address] [place] [address] Care Team Providers Care Concrete Building Assembler Name Role Phone Ilir Nelson Primary Care Provider [phone] Reason for Visit * Reason Onset Date Comments Medication 07/29/2024 Encounter Details Date Type Department Care Team (Late st Contact Info) Description 07/29/2024 Telephone [facility] Family & Internal Medicine [facility] [address] [place] [address] [address] [place] [address] Medication Social History Tobacco Use Types Packs/Day Years [...] on file Legal Sex Male 9:58 PM TARGET WORKER Gender Identity Not on file Sexual Orientation Not on file documented as of this encounter Functional Status * RETIRED Are you deaf or do you have serious difficulty hearing Answer Date of Assessment Author Status No 10/02/2021 12:38 PM TARGET WORKER Acti ve * RETIRED Are you blind or do you have serious difficulty seeing, even when wearing glasses? Answer Date of Assessment Author Status No 10/02/2021 12:38 PM TARGET WORKER Acti ve * Do you have serious difficulty walking or climbing stairs? Answer Date of Assessment Author Status No 10/02/2021 12:38 PM TARGET WORKER Annette Jorge, R N Active * Do you have difficulty dressing or bathing? Answer Date of Assessment Author Status No 10/02/2021 12:38 PM TARGET WORKER Annette Jorge, R N Active * Because of a physical, mental, or emotional condition, do you have difficulty doing errands alone such as visiting a doctor's office or shopping? Answer Date of Assessment Author Status No 10/02/2021 12:38 PM TARGET WORKER Annette Jorge, R N Active documented as of this encounter Mental Status * Because of a physical, mental, or emotional condition, do you have serious difficulty concentrating, remembering, or making decisions? Answer Entry Date Author Status No 10/02/2021 12:38 PM TARGET WORKER Annette Jorge, R N Active documented in this encounter Progress Notes * Chely Giraldo MA - 07/29/2024 1:42 PM CDT I called pharmacy and they stated that it does not require a PA. The pharmacy states that they think there was an error with his insurance. I called patient and left him a detailed vm with information above and told him that it was cleared through insurance. * Summer Gilliland - 07/29/2024 10:13 AM CDT Natan juarez states he went to bean picker medication that was prescribed to day for prostate, tamsulosin was denied by insurance. He was unable to pick this up. He is not sure if there is anything else that can be prescribed or if PA is needed. documented in this encounter Plan of Treatment Upcoming Encounters Date Type Department Care Team (Late st Contact Info) Description 01/27/2025 7:00 AM CDT Office Visit [facility] Family & Internal Medicine [facility] [address] [place] [phone] [place] [address] [place] [address] 10/22/2025 9:15 AM TARGET WORKER Office Visit [facility] [address] [address] Mily Gan MD [place] [address] [place], [place] [phone] documented as of this encounter Goals Goal [...] Time PHQ-9 Depression Total Score: 1 07/29/20 7:03 AM CDT documented as of this encounter Care Teams Concrete Building Assembler Relationship Specialty [place] [address] [place] [address] PCP - General Physician Seed Expert Medical 01/06/24 documented as of this encounter
--- OUTSIDE RECORDS SUMMARY | 2024-11-02 07:46 | XMS_ITS | Encounter Summary ---
Author Organization [facility] Address [address] [place] [address]. [place], [place] [address] [place] [address] Care Team Providers Care Slag Dumper Name Role Phone Ilir Nelson Primary Care Provider [phone] Encounter Details Date Type Department Care Team (Latest Contact Info) Description 07/29/2024 Travel Social History Tobacco Use Types Packs/Day [...] on file Legal Sex Male 9:58 PM RETAIL ATTENDANT Gender Identity Not on file Sexual Orientation Not on file documented as of this encounter Functional Status * RETIRED Are you deaf or do you have serious difficulty hearing Answer Date of Assessment Author Status No 10/02/2021 12:38 PM RETAIL ATTENDANT Acti ve * RETIRED Are you blind or do you have serious difficulty seeing, even when wearing glasses? Answer Date of Assessment Author Status No 10/02/2021 12:38 PM RETAIL ATTENDANT Acti ve * Do you have serious difficulty walking or climbing stairs? Answer Date of Assessment Author Status No 10/02/2021 12:38 PM RETAIL ATTENDANT Annette Jorge R N Active * Do you have difficulty dressing or bathing? Answer Date of Assessment Author Status No 10/02/2021 12:38 PM RETAIL ATTENDANT Annette Jorge R N Active * Because of a physical, mental, or emotional condition, do you have difficulty doing errands alone such as visiting a doctor's office or shopping? Answer Date of Assessment Author Status No 10/02/2021 12:38 PM RETAIL ATTENDANT Annette Jorge R N Active documented as of this encounter Mental Status * Because of a physical, mental, or emotional condition, do you have serious difficulty concentrating, remembering, or making decisions? Answer Entry Date Author Status No 10/02/2021 12:38 PM RETAIL ATTENDANT Annette Jorge R N Active documented in this encounter Plan of Treatment Upcoming Encounters Date Type Department Care Team (Late st Contact Info) Description 01/27/2025 7:00 AM CDT Office Visit [facility] Family & Internal Medicine [facility] [address] [place] [address] [place] [id number] [place] [phone] 10/22/2025 9:15 AM RETAIL ATTENDANT Office Visit [facility] [phone] Mily Gan MD [address] [address] documented as of this encounter Goals Goal [...] documented as of this encounter Care Teams Slag Dumper Relationship Specialty [place] [address] [place] [address] PCP - General Physician Concrete Pump Operator Medical 01/06/24 documented as of this encounter
--- OUTSIDE RECORDS SUMMARY | 2024-11-02 07:47 | XMS_ITS | Encounter Summary ---
Author Organization [facility] Address [address] [place] [address]. [place], [place] [address] [place] [address] Care Team Providers Care Patient Financial Advocate Name Role Phone Ilir Nelson Primary Care Provider [phone] Encounter Details Date Type Department Care Team (Latest Contact Info) Description 07/26/2024 7:52 AM CDT - 07/26/2024 11:59 PM [facility] Encounter [facility] [address] [place], [place] [phone] [place] [address] [place] [address] Discharge Disposition: Home or Self Care (Routine Discharge) Social History Tobacco Use Types Packs/Day Years [...] alcohol? 4 or more times a week 04/10/2023 Q2: How many drinks containi ng alcohol do you have on a typical day when you are drinking? 1 or 2 Q3: How often do you have si x or more drinks on one occasion? Weekly 04/10/2023 PHQ-2 Answer Date Recorded Patient Health Questionnaire-2 Score 0 01/23/2024 Sex and Gender Information Value Date Recorded Sex Assigned at Not on file Legal Sex Male 9:58 PM AUTOMATIC MOUNTER Gender Identity Not on file Sexual Orientation Not on file documented as of this encounter Functional Status * RETIRED Are you deaf or do you have serious difficulty hearing Answer Date of Assessment Author Status No 10/02/2021 12:38 PM AUTOMATIC MOUNTER Acti ve * RETIRED Are you blind or do you have serious difficulty seeing, even when wearing glasses? Answer Date of Assessment Author Status No 10/02/2021 12:38 PM AUTOMATIC MOUNTER Acti ve * Do you have serious difficulty walking or climbing stairs? Answer Date of Assessment Author Status No 10/02/2021 12:38 PM AUTOMATIC MOUNTER Annette Jorge R N Active * Do you have difficulty dressing or bathing? Answer Date of Assessment Author Status No 10/02/2021 12:38 PM AUTOMATIC MOUNTER Annette Jorge R N Active * Because of a physical, mental, or emotional condition, do you have difficulty doing errands alone such as visiting a doctor's office or shopping? Answer Date of Assessment Author Status No 10/02/2021 12:38 PM AUTOMATIC MOUNTER Annette Jorge R N Active documented as of this encounter Mental Status * Because of a physical, mental, or emotional condition, do you have serious difficulty concentrating, remembering, or making decisions? Answer Entry Date Author Status No 10/02/2021 12:38 PM AUTOMATIC MOUNTER Annette Jorge R N Active documented in this encounter Medications at Time of Discharge amoxicillin (AMOXIL) 500 MG capsule Take 1 capsule (500 mg total) by mouth as needed ( NEEDED FOR DENTAL PROCEDURE). 4 Ascorbic Acid (VITAMIN C) 100 MG tabletIndications:V itamin and/or Mineral Deficiency Take 1 tablet (100 mg total) by mouth daily. Indications: Vitamin and/or Mineral Deficiency 1 aspirin 81 MG chewable tabletIndications:A nticoagulant Therapy Chew 1 tablet (81 mg total) by mouth nightly at bedtime. Indications: Anticoagulant Therapy 1 Cholecalciferol (VITAMIN D) 50 MCG (2000 UT) CapIndications:Penelope min D Deficiency Take 50 mcg by mouth daily. Indications: Vitamin D Deficiency 1 Vitamin E 400 units TabIndications:Nutr itional Support Take 400 Units by mouth daily. Indications: Nutritional Support 1 zinc gluconate 50 MG TabIndications:Nutr itional Support Take 1 tablet (50 mg total) by mouth daily. Indications: Nutritional Support 1 atorvastatin (LIPITOR) 40 MG tabletIndications:M ixed hyperlipidemia TAKE 1 TABLET BY MOUTH AT BEDTIME CHANGE FROM PRAVASTATIN DUE TO CHOLESTEROL NOT AT GOAL 100 tablet 1 4 09/09/20 24 CPAP SUPPLIESIndications :RANDY on CPAP 1 Units by Does not apply route nightly at bedtime. Mask, tubing & filters 1 Device 3 0 10/09/20 metoprolol succinate ER (TOPROL-XL) 25 MG 24 hr tabletIndications:P rimary hypertension take 1 tablet by mouth daily 100 tablet 1 4 09/24/20 24 documented as of this encounter Plan of Treatment Upcoming Encounters Date Type Department Care Team (Late st Contact Info) Description 01/27/2025 7:00 AM CDT Office Visit [facility] Family & Internal Medicine [facility] [id number] [place] [phone] [place] Nelson [place] [phone] [place] [phone] 10/22/2025 9:15 AM AUTOMATIC MOUNTER Office Visit [facility] [phone] Mily Gan MD [address] [address] documented as of this encounter Goals Goal Patient Goal Type Associated Problems Recent Progress Patient-Stated? Author Establish Plan for Symptom Monitoring General Jesi Ye RN Monitor - demonstrates appropriate technique of care of indwelling urinary catheter and new ostomy General Jesi Ye RN Patient will return to prior living situation and remain independent in ADLs upon discharge from hospital General No Stokes, Aliya M, RN documented as of this encounter Procedures Procedure Name Priority Date/Time Associated Diagnosis Comments PROSTATE SPECIFIC ANTIGEN,SCREENING Routine 07/26/2024 8:20 AM CDT Special screening for malignant neoplasm of prostate documented in this encounter Results * PROSTATE SPECIFIC ANTIGEN,SCREENING (07/26/2024 8:20 AM CDT) PSA 0.90 <4.00 NG/ML 07/26/2024 10:11 AM CDT [facility] Comment: Test was performed using the Siemens method. ??Results obtained with other assay methods or kits cannot be used interchangeably with results obtained by the Siemens method. 07/26/2024 8:20 AM CDT us [facility] Final Result [facility] [address] [place] [address], documented in this encounter Visit Diagnoses Diagnosis Special screening for malignant neoplasm of prostate documented in this encounter Additional Health Concerns Assessment Noted Time PHQ-9 Depression Total Score: 0 01/24/20 23 8:04 AM CDT documented as of this encounter Care Teams Patient Financial Advocate Relationship Specialty [place] [address] [place] [address] PCP - General Physician Carpenter Repair Medical 01/06/24 documented as of this encounter
--- OUTSIDE RECORDS SUMMARY | 2024-11-02 07:47 | XMS_ITS | Encounter Summary ---
Author Organization [facility] Address [address] [place] [address]. [place], [place] [address] [place] [address] Care Team Providers Care Performance Improvement Director Name Role Phone Ilir Nelson Primary Care Provider [phone] Encounter Details Date Type Department Care Team (Late st Contact Info) Description 07/26/2024 Orders Only [facility] [address] [place], [place] [phone] [place] [address] [place], [place] [phone] Social History Tobacco Use Types Packs/Day Years [...] on file Legal Sex Male 9:58 PM BSA OFFICER Gender Identity Not on file Sexual Orientation Not on file documented as of this encounter Functional Status * RETIRED Are you deaf or do you have serious difficulty hearing Answer Date of Assessment Author Status No 10/02/2021 12:38 PM BSA OFFICER Acti ve * RETIRED Are you blind or do you have serious difficulty seeing, even when wearing glasses? Answer Date of Assessment Author Status No 10/02/2021 12:38 PM BSA OFFICER Acti ve * Do you have serious difficulty walking or climbing stairs? Answer Date of Assessment Author Status No 10/02/2021 12:38 PM BSA OFFICER Annette Jorge R N Active * Do you have difficulty dressing or bathing? Answer Date of Assessment Author Status No 10/02/2021 12:38 PM BSA OFFICER Annette Jorge R N Active * Because of a physical, mental, or emotional condition, do you have difficulty doing errands alone such as visiting a doctor's office or shopping? Answer Date of Assessment Author Status No 10/02/2021 12:38 PM BSA OFFICER Annette Jorge R N Active documented as of this encounter Mental Status * Because of a physical, mental, or emotional condition, do you have serious difficulty concentrating, remembering, or making decisions? Answer Entry Date Author Status No 10/02/2021 12:38 PM BSA OFFICER Annette Jorge R N Active documented in this encounter Plan of Treatment Upcoming Encounters Date Type Department Care Team (Late st Contact Info) Description 01/27/2025 7:00 AM CDT Office Visit [facility] Family & Internal Medicine [facility] [address] [place] [address] [place] [address] [place], [place] [phone] 10/22/2025 9:15 AM BSA OFFICER Office Visit [facility] [phone] Mily Gan MD [address] [address] documented as of this encounter Goals Goal [...] Stokes RN documented as of this encounter Results * PROSTATE SPECIFIC ANTIGEN,SCREENING (07/26/2024 8:20 AM CDT) PSA 0.90 <4.00 NG/ML 07/26/2024 10:11 AM CDT [facility] Comment: Test was performed using the Siemens method. ??Results obtained with other assay methods or kits cannot be used interchangeably with results obtained by the Siemens method. 07/26/2024 8:20 AM CDT [facility] Final Result Performing Organization Address City/State/[facility] Co de Phone Number [facility] [address] [place] [address], documented in this encounter Visit Diagnoses Diagnosis Special screening for malignant neoplasm of prostate- Primary documented in this encounter Additional Health Concerns Assessment Noted Time PHQ-9 Depression Total Score: 0 01/24/20 23 8:04 AM CDT documented as of this encounter Care Teams Performance Improvement Director Relationship Specialty [place] [address] [place] [address] PCP - General Physician Raimann Machine Operator Medical 01/06/24 documented as of this encounter
--- OUTSIDE RECORDS SUMMARY | 2024-11-02 07:47 | XMS_ITS | Encounter Summary ---
Author Organization [facility] Address [address] [place] [address]. 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 Answer Date of Assessment Author Status No 10/02/2021 12:38 PM BELT PRESS OPERATOR Acti ve * Do you have serious difficulty walking or climbing stairs? Answer Date of Assessment Author Status No 10/02/2021 12:38 PM BELT PRESS OPERATOR Annette Jorge R N Active * Do you have difficulty dressing or bathing? Answer Date of Assessment Author Status No 10/02/2021 12:38 PM BELT PRESS OPERATOR Annette Jorge R N Active * Because of a physical, mental, or emotional condition, do you have difficulty doing errands alone such as visiting a doctor's office or shopping? Answer Date of Assessment Author Status No 10/02/2021 12:38 PM BELT PRESS OPERATOR Annette Jorge R N Active documented as of this encounter Mental Status * Because of a physical, mental, or emotional condition, do you have serious difficulty concentrating, remembering, or making decisions? Answer Entry Date Author Status No 10/02/2021 12:38 PM BELT PRESS OPERATOR Annette Jorge R N Active documented in this encounter Plan of Treatment Upcoming Encounters Date Type Department Care Team (Late st Contact Info) Description 01/27/2025 7:00 AM CDT Office Visit [facility] Family & Internal Medicine [facility] [address] [place] [address] [place] Nelson [place] [phone] [place] [phone] 10/22/2025 9:15 AM BELT PRESS OPERATOR Office Visit [facility] [phone] Mily Gan MD [address] [address] documented as of this encounter Goals Goal [...] documented as of this encounter Care Teams Neuroscience Specialist Relationship Specialty [place] [address] [place] [address] PCP - General Physician Road Builder Medical 01/06/24 documented as of this encounter
--- OUTSIDE RECORDS SUMMARY | 2024-11-02 07:47 | XMS_ITS | Encounter Summary ---
Author Organization [facility] Address [address] [place] [address]. [place], [place] [address] [place] [id number] Care Team Providers Care Die Mounter Name Role Phone Ilir Nelson Primary Care Provider [phone] Encounter Details Date Type Department Care Team (Late st Contact Info) Description 07/24/2024 Orders Only [facility] [address] [place], [place] [id number] [place] [address] [place], [place] [phone] Social History Tobacco Use Types Packs/Day Years [...] on file Legal Sex Male 9:58 PM [employer] Gender Identity Not on file Sexual Orientation Not on file documented as of this encounter Functional Status * RETIRED Are you deaf or do you have serious difficulty hearing Answer Date of Assessment Author Status No 10/02/2021 12:38 PM [employer] Acti ve * RETIRED Are you blind or do you have serious difficulty seeing, even when wearing glasses? Answer Date of Assessment Author Status No 10/02/2021 12:38 PM [employer] Acti ve * Do you have serious difficulty walking or climbing stairs? Answer Date of Assessment Author Status No 10/02/2021 12:38 PM [employer] Annette Jorge R N Active * Do you have difficulty dressing or bathing? Answer Date of Assessment Author Status No 10/02/2021 12:38 PM [employer] Annette Jorge R N Active * Because of a physical, mental, or emotional condition, do you have difficulty doing errands alone such as visiting a doctor's office or shopping? Answer Date of Assessment Author Status No 10/02/2021 12:38 PM [employer] Annette Jorge R N Active documented as of this encounter Mental Status * Because of a physical, mental, or emotional condition, do you have serious difficulty concentrating, remembering, or making decisions? Answer Entry Date Author Status No 10/02/2021 12:38 PM [employer] Annette Jorge R N Active documented in this encounter Plan of Treatment Upcoming Encounters Date Type Department Care Team (Late st Contact Info) Description 01/27/2025 7:00 AM CDT Office Visit [facility] [address] [place] [address] [place] [address] [place], [place] [phone] 10/22/2025 9:15 AM [employer] Office Visit [facility] [address] Mily Gan MD [address] [address] documented as of this encounter Goals Goal [...] documented as of this encounter Results * LIPID PANEL (07/24/2024 9:48 AM CDT) [facility] Signature CHOLESTEROL 158 <200.0 MG/DL 07/24/2024 10:58 AM T [facility] TRIGLYCERIDES 65 <150 MG/DL 07/24/2024 10:58 AM T [facility] HDL 52 >40.0 MG/DL 07/24/2024 10:58 AM [facility] LDL (CALCULATED) 93 <100 MG/DL 07/24/20 10:58 AM [facility] NON HDL CHOLESTEROL 106 <130 MG/DL 07/24 10:58 AM [facility] CHOL/HDL RATIO 3.0 0.0 - 4.5 07/24/2024 10:58 AM [facility] VLDL CALCULATION 13 5 - 55 MG/DL 07/24/2024 10:58 AM [facility] LIPID INTERPRETATION 07/24/2024 10:58 AM [facility] Comment: [facility] REPORT RECOMMENDATIONS: ?ADULT ?CHILD ??LOW RISK: ?CHOLESTEROL ? <200 ? <170 ?TRIGLYCERIDE ?<150 ?--- ?HDL ? >=60 ?--- ?LDL ? <100 ? <110 ??BORDERLINE: ?CHOLESTEROL ? 200-239 ?? 170-199 ?TRIGLYCERIDE ?150-199 ? --- ?HDL ?40-59 ?--- ?LDL ? 100-159 ?? 110-129 ??HIGH RISK: ?CHOLESTEROL ? >=240 ?>=200 ?TRIGLYCERIDE ?>=200 ? --- ?HDL ?<40 ?--- ?LDL ? >=160 ?>=130 07/24/2024 9:48 AM CDT [facility] Final Result Performing Organization Address City/State/[facility] de Phone Number [facility] [address] [place] [address], * THYROXINE, FREE (FT4) (07/24/2024 9:48 AM CDT) FREE T4 0.90 0.76 - 1.46 NG/DL 07/24/2024 10:58 AM CDT [facility] 07/24/2024 9:48 AM CDT us [facility] Final Result [facility] [address] [place] [address], * (ABNORMAL) COMPREHENSIVE METABOLIC PANEL (07/24/2024 9:48 AM CDT) GLUCOSE 100(H) 70 - 99 MG/DL 07/24/2024 10:58 AM CDT [facility] BUN 14 7 - 18 MG/DL 07/24/2024 10:58 AM CDT [facility] CREATININE S/P/B 0.80 0.7 - 1.3 MG/DL 07/24/2024 10:58 AM CDT [facility] SODIUM S/P/B 141 136 - 145 MMOL/L 07/24/2024 10:58 AM CDT [facility] POTASSIUM S/P/B 4.4 3.5 - 5.1 MMOL/L 07/24/2024 10:58 AM CDT [facility] CHLORIDE S/P/B 105 100 - 108 MMOL/L 07/24/2024 10:58 AM CDT [facility] CO2 28.8 21 - 32 MMOL/L 07/24/2024 10:58 AM CDT [facility] CALCIUM S/P/B 8.8 8.5 - 10.1 MG/DL 07/24/2024 10:58 AM CDT [facility] BILIRUBIN TOTAL S/P/B 1.2 0.2 - 1.2 MG/DL 07/24/2024 10:58 AM T [facility] TOTAL PROTEIN S/P/B 7.6 6.4 - 8.2 G/DL 07/24/2024 10:58 AM CDT [facility] ALBUMIN S/P/B 3.8 3.4 - 5.0 G/DL 07/24/2024 10:58 AM CDT [facility] AST 25 15 - 37 U/L 07/24/2024 10:58 AM CDT [facility] ALT 37 16 - 60 U/L 07/24/2024 10:58 AM CDT [facility] ALKALINE PHOSPHATASE S/P/B 53 50 - 136 U/L 07/24/2024 10:58 AM CDT [facility] ANION GAP 7.2 5 - 15 MMOL/L 07/24/2024 10:58 AM T [facility] BUN CREATININE RATIO 17.5 6 - 26 07/24/2024 10:58 AM T [facility] A/G RATIO 1.0 1.0 - 2.0 RATIO 07/24/2024 10:58 AM T [facility] GFR ESTIMATE >90 >90 ML/MIN/1.7 3 M2 07/24/2024 10:58 AM T [facility] Comment: NOTE: eGFR is not calculated for patients <18 years of age. This is an estimated GFR calculation using the new CKD EPI creatinine equation without race and so does not require a correction factor for race. This estimated GFR should not be used for calculating drug doses. 07/24/2024 9:48 AM CDT us [facility] Final Result [facility] [address] [place] [address], * (ABNORMAL) CBC W/DIFF AUTOMATED (07/24/2024 9:48 AM CDT) WBC 4.93 4.4 - 11.0 x10'3/uL 07/24/2024 10:15 AM CDT [facility] RBC 4.36(L) 4.50 - 5.90 x10'6/uL 07/24/2024 10:15 AM CDT [facility] HGB 14.2 14.0 - 17.5 G/DL 07/24/2024 10:15 AM CDT [facility] HCT 41.7 41.5 - 50.4 % 07/24/2024 10:15 AM CDT [facility] MCV 95.6 80.0 - 96.0 FL 07/24/2024 10:15 AM CDT [facility] MCH 32.6(H) 26.5 - 31.4 PG 07/24/2024 10:15 AM CDT [facility] MCHC 34.1 31.9 - 34.8 G/DL 07/24/2024 10:15 AM T [facility] RDW 12.7 12.3 - 14.3 % 07/24/2024 10:15 AM CDT [facility] PLT 193 151 - 353 x10'3/uL 07/24/2024 10:15 AM [facility] MPV 10.6 9.7 - 11.9 FL 07/24/2024 10:15 AM T [facility] RBC MORPHOLOGY NORMAL 07/24/2024 10:15 AM T [facility] PLT MORPH. NORMAL 07/24/2024 10:15 AM CDT [facility] WBC MORPHOLOGY NORMAL 07/24/2024 10:15 AM CDT [facility] LYMPHOCYTES % 32.3 15.8 - 45.0 % 07/24/2024 10:15 AM CDT [facility] NEUTROPHILS % 53.5 42.1 - 71.9 % 07/24/2024 10:15 AM CDT [facility] MONOCYTES % 11.4 5.7 - 12.5 % 07/24/2024 10:15 AM CDT [facility] EOSINOPHILS 1.4 0.0 - 5.6 % 07/24/2024 10:15 AM CDT [facility] BASOPHILS 1.0 0.0 - 1.3 % 07/24/2024 10:15 AM CDT [facility] ABS. NEUTROPHILS 2.64 1.40 - 6.00 x10'3/uL 07/24/2024 10:15 AM CDT [facility] IMMATURE GRANS % 0.4 0.0 - 0.5 % 07/24/2024 10:15 AM CDT [facility] ABS. LYMPHOCYTES 1.59 0.80 - 4.70 x10'3/uL 07/24/2024 10:15 AM CDT [facility] 07/24/2024 9:48 AM CDT [facility] Final Result [facility] [address] [place] [id number], * INSULIN,TOTAL (07/24/2024 9:48 AM CDT) [facility] INSULIN 10.0 <=18.4 uIU/mL 07/28/2024 3:36 PM CDT [employer] RHIANNON SCHNEIDER Comment: Risk: Optimal ??< or = 18.4 Moderate ? NA High ? >18.4 Adult cardiovascular event risk category cut points (optimal, moderate, high) are based on Insulin Reference interval studies performed at [facility] in 2021. Test Performed by April Chi, [facility], [address] [place] [address] Jay Hirsch M.D., Ph.D., Director of Laboratories , [place] [id number] 07/24/2024 9:48 AM CDT [facility] Final Result Performing Organization Address City/[facility]/ZIP Co de Phone Number [employer] [facility] [address] [place] [address], [place] [phone] * VITAMIN D, 25 [place] (07/24/2024 9:48 AM CDT) VITAMIN D 25 HYDROXY S/P/B 49 30 - 100 NG/ML 07/24/2024 11:09 AM CDT [facility] Comment: ? INTERPRETATION ? DEFICIENT ??<20 ? INSUFFICIENT 20-29 ?SUFFICIENT 30-100 07/24/2024 9:48 AM CDT [facility] Final Result Performing Organization Address [facility] de Phone Number [facility] [address] [place] [address], [place] [phone] * THYROID STIM HORMONE TSH (07/24/2024 9:48 AM CDT) Pathologist [facility] TSH 1.555 0.358 - 3.74 uIU/ML 07/24/2024 10:58 AM CDT [facility] Comment: HIGH DOSES OF BIOTIN MAY INTERFERE WITH THIS TEST RESULT. CORRELATION TO CLINICAL HISTORY AND PRESENTATION RECOMMENDED. 07/24/2024 9:48 AM CDT [facility] Final Result Performing Organization Address City/[facility]/ZIP Co de Phone Number [facility] [address] [facility] [place] [address], documented in this encounter Visit Diagnoses Diagnosis Screening for endocrine, metabolic and immunity disorder- Primary Vitamin D deficiency Unspecified vitamin D deficiency Primary hypertension Unspecified essential hypertension Mixed hyperlipidemia Prostate cancer screening Special screening for malignant neoplasm of prostate Screening for prostate cancer Special screening for malignant neoplasm of prostate documented in this encounter Additional Health Concerns Assessment Noted Time PHQ-9 Depression Total Score: 0 01/24/20 23 8:04 AM CDT documented as of this encounter Care Teams Die Mounter Relationship Specialty [place] [address] [place] [address] PCP - General Physician Education Courses Sales Representative Medical 01/06/24 documented as of this encounter
--- OUTSIDE RECORDS SUMMARY | 2024-11-02 07:47 | XMS_ITS | Encounter Summary ---
Author Organization [facility] Address [address] [place] [address]. [place], [place] [id number] [place] [id number] Care Team Providers Care Cook Larder Name Role Phone Ilir Nelson Primary Care Provider [phone] Reason for Visit * Reason Comments Follow Up 6 month follow up Hypertension Hyperlipidemia Medicare Wellness Encounter Details Date Type Department Care Team (Late st Contact Info) Description 07/29/2024 7:00 AM CDT Office Visit [facility] Family & Internal Medicine [facility] [id number] [place] [phone] Ilir Nelson PA [address] [place] [id number] Follow Up (6 month follow up); Hypertension; Hyperlipidemia; Medicare Wellness Social History Tobacco Use Types Packs/Day Years [...] on file 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 Gender Identity Not on file Sexual Orientation Not on file documented as of this encounter Last Filed Vital Signs Vital Sign Reading Time Taken Comments Blood Pressure 145/79 07/29/2024 7:11 AM CDT Pulse 65 07/29/2024 7:01 AM CDT Temperature 36.5 ??C (97.7 ??F) 07/29/2024 7:01 AM CD T Respiratory Rate 16 07/29/2024 7:01 AM CDT Oxygen Saturation 97% 07/29/2024 7:01 AM CDT Inhaled Oxygen Concentration - - Weight 78.5 kg (173 lb) 07/29/2024 7:01 AM CDT Height 170.2 cm (5' 7 ) 07/29/2024 7:01 AM CDT Body Mass Index 27.1 07/29/2024 7:01 AM CDT documented in this encounter Functional Status * RETIRED Are you deaf or do you have serious difficulty hearing Answer Date of Assessment Author Status No 10/02/2021 12:38 PM COPING MACHINE ASSEMBLER Acti ve * RETIRED Are you blind or do you have serious difficulty seeing, even when wearing glasses? Answer Date of Assessment Author Status No 10/02/2021 12:38 PM COPING MACHINE ASSEMBLER Acti ve * Do you have serious difficulty walking or climbing stairs? Answer Date of Assessment Author Status No 10/02/2021 12:38 PM COPING MACHINE ASSEMBLER Annette Jorge R N Active * Do you have difficulty dressing or bathing? Answer Date of Assessment Author Status No 10/02/2021 12:38 PM COPING MACHINE ASSEMBLER Annette Jorge R N Active * Because of a physical, mental, or emotional condition, do you have difficulty doing errands alone such as visiting a doctor's office or shopping? Answer Date of Assessment Author Status No 10/02/2021 12:38 PM COPING MACHINE ASSEMBLER Annette Jorge R N Active documented as of this encounter Mental Status * Because of a physical, mental, or emotional condition, do you have serious difficulty concentrating, remembering, or making decisions? Answer Entry Date Author Status No 10/02/2021 12:38 PM COPING MACHINE ASSEMBLER Annette Jorge R N Active documented in this encounter Patient Instructions * Patient Instructions* GERI Pritchett - 07/29/2024 7:00 AM CDT Vit D3 [id number] units daily with largest meal PERSONALIZED PREVENTION PLAN FOR Natan Patel These are your preventive care screenings with due dates. Health Maintenance Topic Date Due ??? RSV Immunization or 60+ Years (1 - 1-dose 60+ series) Never done ??? Annual Medicare Wellness Visit Never done ??? COVID-19 Vaccine ( - 2022-24 season) 2024 ??? DTaP, Tdap and Td Vaccines (2 - Td or Tdap) 01/04/2030 ??? Colorectal Cancer Screening Colonoscopy (10 Years) 08/13/2031 ??? AAA SCREENING Completed ??? Zoster Vaccines Completed ??? Pneumococcal Vaccine: 65+ Years Completed ??? Hepatitis C Completed ??? Meningococcal Vaccine Aged Out ??? RSV Immunizations Under 20 Months Aged Out Recommended Covered Preventative Services Your PCP and clinical team will review the list below of recommended Medicare Part B Covered Preventative Services and follow up with you on future scheduling of any additional services Based on your responses to the Health Risk Assessment and appointment today, your provider recommends the following: ADVANCE DIRECTIVES The Basics Written by the doctors and editors at [facility] What are advance directives???--??Advance directives are legal documents that allow you to spell out ahead of time what of types medical care you would want if you ever became unable to speak for yourself. These documents can help ensure that you get the care you want even if you have an unexpectedserious illness or accident. The documents can also make things easier for the people who will need to make decisions for you if you ever become unable to make them for yourself. Are there different kinds of advance directives???--??Yes. The most useful kinds of advance directives are: Health care proxy (also called the durable power of county attorney for health care) - The health care proxy document allows you to choose someone to make medical decisions for you if you become unable to speak for yourself. The benefit of having this document is that it makes your choice of a decision-maker clear to your doctors and family members. When you choose a health care proxy, it is important to talk to the person you choose about the things that you do or don't want. That way your decision-maker knows what to do later on if he or she ever has to speak for you. Living will - A living will is the document that tells health care providers what type of care you want if you become unable to speak for yourself. For instance, a living will allows you to record inwriting whether you would want a feeding tube put in if you had a serious illness or accident. Do not resuscitate/do not intubate order (also called a DNR/DNI) - If you decide you do not want your heart restarted if it stops and you do not want a breathing tube put in if you stop breathing, you can ask for a DNR/DNI. This is a form that must be signed by a doctor. It tells all your health care providers that you have decided you do not want these treatments. Advance directives work best when they are part of a team effort that includes not only the person making the decisions, but also doctors, emergency health workers, and places like hospitals and nursing homes. The Physician Orders for Life Sustaining Treatment (POLST) is a form for people who already have a serious illness or are very weak and likely to need medical help. The POLST form spells out exactly what care should be given, and not given, based on your choices and wishes. It is signed by your doctor, and you can keep a copy at home to be used in the event of an emergency. A copy is also kept onfile at any hospital or other place where you might get medical care. Not every state has a POLST program. To find out if your state has one, you can go online to www.polst.org. How do I choose a health care proxy???--??Choose someone who: You know and trust Can separate his or her own wishes from your own You know would carry out your wishes if that became necessary Could be easily reached if he or she was needed Could handle it if other family members or loved ones wanted you to get treated differently than you would want Some people choose a second person as an alternate proxy, in case their first choice cannot be reached at the time decisions need to be made. Who should have an advance directive???--??Advance directives are a good idea for anyone, but they are especially important if: You are older than 65. You have a serious life-threatening illness, such as advanced cancer, or end- stage heart or liver failure. The person whom you would like as your health care proxy (decision-maker) is not a family member orlegally to you. If that is the case the person you would choose might not be allowed to make decisions for you. Unless there is a health care proxy, the law usually states that a person's closest family member has the right to make decisions for him or her. What kinds of decisions will I need to make???--??Your advance directives can have as much or as little detail as you want. But many people who have advance directives record their wishes about the following treatments: Breathing tubes - If you stop breathing or are having a very hard time breathing, you can get attached to a machine that will help you breathe. For that to happen, you will have to be intubated. That means that a tube will be put down your throat and into your lungs. Then the tube will be connected to a breathing machine. When the tube is in place, you will not be able to talk, at least at first. Plus, you will probably be sedated, meaning that you are on medicines that make you sleep. Sometimes a breathing machine is needed only for a short time. For instance, some people need the breathing machine just while they recover from a lung infection. When deciding about a breathing tube, consider whether you would want it at all, want it only for a short time, or want it no matter what. Also, keep in mind that any time a breathing machine is used, it is hard to know for sure if and when it will be able to be disconnected. Cardiopulmonary resuscitation (CPR) - If your heart stops beating suddenly, doctors might be able to restart it by pumping on your chest, putting in a breathing tube and pushing air into your lungs, giving you an electric shock (called defibrillation ), and/or giving you special medicines. Some people recover completely after having their heart restarted. Others have permanent brain damage from a lack of blood flow to the brain; this is most likely in people who have an advanced, serious illness. Feeding tubes - If you become unable to eat, you can have a tube put into your stomach or intestines that can deliver nutrients. A feeding tube can keep a person's body going while he or she heals and gets strong. But it can also keep a person alive for a long time even if there is no chance the person will recover. Can I change my mind???--??Yes. You can change your mind at any time. If you sign an advance directive and you decide you want a different kind of treatment or you no longer want the health care proxy you chose, all you have to do is tell your doctor or nurse about your new decision. If you want toname a new health care proxy or want to record new wishes, you can draw up new documents. How can I draw up an advance directive???--??The following table lists resources that can help you learn more about making your own advance directives (table 1). All topics are updated as new evidence becomes available and our peer review process is complete. This topic retrieved from [employer] on: Nov 13, 2018. Topic 44925 Version 11.0 table 1: Resources that can help you make advance directives ?? Address Phone number Website [facility] [address] [facility], [place] Toll-free: [phone] [facility] [ ] http://assets.aar.org/external_sites/ caregiving/multimedia/EG_AdvanceDirectives.html Aging with Dignity (Five Wishes form) [address] [place] [address] Toll-free: [phone] [ ] www.agingwithdignity.org CaringInfo ?? Toll-free: www.caringinfo.org [facility] National POLST [employer] c/o [employer]. [address] [place] [phone] www.Tealeaf.org ALCOHOL Your Health Risk Assessment indicates you drink more than one alcoholic drink per day. If you are aheavy drinker, you may keep drinking a lot as you get older because you think alcohol does not affect you. Or you may drink as a way to deal with grief over recent losses in your life. However, you may be destroying your health by overuse or abuse of alcohol , especially if you binge drink . What physical problems can alcohol cause? Alcohol can have many harmful effects on the body. Abuse of alcohol may cause or contribute to: stomach problems such as gastritis (inflammation of the lining of the stomach) or ulcers (raw places or sores in the lining of the gastrointestinal tract) gout, which is a buildup of uric acid that can cause pain and swelling in the joints high blood pressure blood sugar levels that are too high or too low if you have diabetes higher risk of cancer of the pancreas, mouth, tongue, throat, esophagus, and liver problems such ashepatitis and cirrhosis heart failure, which means the heart is not pumping blood as well as it should harmful interactions with medicines, especially with medicines that can cause drowsiness sleep problems, such as not getting enough deep sleep or having trouble staying asleep loss of protein, minerals, and vitamins, especially thiamine (vitamin B-1) and other B-complex vitamins, which your body needs to work normally pancreatitis (inflammation of the pancreas) depression and a higher risk of suicide worsening of most other medical problems such as heart disease, kidney disease, and circulation problems. You can have more problems keeping your balance as you get older. Alcohol can make these problems worse. You may be more likely to have falls and other injuries. How much is too much? If you are healthy and 65 years or older, you should not have more than 7 drinks in a week. Don???thave more than 3 drinks on any given day. One drink is a 12- ounce beer, a 5-ounce glass of wine, or1 and 1/2 ounces of 80-proof distilled spirits a day. If you take a lot of acetaminophen (Tylenol), drinking alcohol is more likely to damage your liver.Never take more than 6 to 8 of the extra-strength tablets, caplets, or capsules in a 24-hour period. If you take daily anti-inflammatory medicines such as ibuprofen or naproxen, do not drink alcohol. It may increase the risk of stomach upset. Should older adults cut back on alcohol? There are several reasons for cutting back on alcohol as you get older. Alcohol has a stronger effect when you are older. Reaction time slows down with age, and alcohol slows it even more. You are more likely to get confused if you drink too much. You may ignore signs of possible health problems, such as pain, when you are drinking. W here can I get help? If you are thinking about talking to someone about your drinking, don???t hesitate. Get help and support from family, friends, or your healthcare provider. In many places, you can call a counseling hotline or crisis line for help. Talk to someone at your local senior center about how to get help. Alcoholics Anonymous 29/05 Hotline to find an Alcoholics Anonymous meeting nearby A.A. Website: https://www.aa.org/ Find an A.A. location nearby: https://www.aa.org/pages/en_US/zdlp-yg-qaqvanfch Find a meeting by phone [phone] Or online at Meeting-finder.org FALL RISK Guidelines to help you prevent falls: There are several steps you can take to decrease fall risk at home. One suggestion is to remove tripping hazards like throw rugs, loose wires, clutter or other objects from the floor. Installing hand-rails for stairs and turning on night lights between the bedroom and bathroom at night are other helpful suggestions. If you have fallen in the bathroom, use of grab bars near the toilet and a shower stool or bench may help prevent a fall in this part of the home. Taking extra time when getting up from a sitting or lying position before starting to walk is especially helpful to those who have dizziness triggered by change in body position. There are also some steps that can be taken to reduce fall risk outdoors. Wearing well-fitting shoes with good traction is important when walking on either the pavement or the lawn. Avoid high heels or shoes with very thick soles, especially if you have peripheral neuropathy. If you have problems with balance or leg pain, using a cane or walker can also be helpful. Finally, be aware of possible tripping hazards outdoors including uneven pavement and slipping hazards like wet ground or pavement. documented in this encounter Progress Notes * GERI Pritchett - 07/29/2024 7:00 AM CDT Medicare Annual Wellness Visit Chief Complaint: Natan is an 69-year-old male here for an annual wellness visit. Patient Care Team: GERI Pritchett as PCP - General (Physician Mechanical Research Engineer Medical) HEALTH RISK ASSESSMENT 04/10/2023 7:59 AM 04/10/2023 8:10 AM 07/29/2024 7:06 AM Medicare Wellness During the past 4 weeks, how much have you been bothered by emotional problems such as feeling anxious, depressed, irritable, sad or downhearted and blue? Not at all Not at all Not at all During the past 4 weeks, has your physical and emotional health limited your social activities withfamily friends, neighbors or groups? Not at all Not at all Not at all During the past 4 weeks, how much bodily pain have you generally had? Very mild pain Very mild painVery mild pain During the past 4 weeks, was someone able to help you if you needed and wanted help? Yes, as much as I wanted Yes, as much as I wanted Yes, as much as I wanted During the past 4 weeks, what was the hardest physical activity you could do for atleast 2 minutes?Very heavy Very heavy Heavy Can you get places out of walking distance without help? Yes Yes Yes Can you shop for groceries or clothes without help? Yes Yes Yes Can you prepare your own meals? Yes Yes Yes Can you do your own housework without help? Yes Yes Yes Can you handle your own money without help? Yes Yes Do you need help eating, bathing, dressing, or getting around your home? No No During the past 4 weeks, how would you rate your general health? Good Very good How have things been going for you during the past 4 weeks? Pretty well Pretty well Are you having difficulties driving your car? No No Do you always fasten your seatbeat when you are in a car? Yes Yes Fall or dizzy when standing up Never Never Sexual problems Never Never Trouble eating well Never Never Teeth or dentures Never Never Problems using the telephone Never Never Tired or fatigued Seldom Never Do you currently smoke? Yes, and I'm not ready to quit Yes, and I might quit During the past 4 weeks, how many drinks of wine, beer or other alcoholic bevearges did you have? 10 or more per week 6-9 per week Do you exercise for about 20 minutes 3 or more days a week? No, I usually do not exercise this muchYes, most of the time How often do you have trouble taking medicines the way you have been told to take them? I always take them as prescribed I always take them as prescribed How confident are you that you can control and manage most of your health problems? Very confident Very confident In the past 6 months, have you experienced leaking of urine? No No Does the patient live alone? No No Does the patient have throw rugs in their home? Yes Yes Does the patient's home have poor lighting? No No Does the patient have grab bars in their bathroom? Yes Yes Does the patient have handrails on stairs and steps in their home? Yes Yes Does the patient's home have functioning smoke alarms? Yes Yes FALL RISK Fall Risk One or more falls in the last year:: No Feels unsteady when walking:: No Worried about falling:: No MINI-COG 04/10/2023 8:11 AM 04/10/2023 8:14 AM 07/29/2024 7:09 AM 07/29/2024 7:12 AM Mini-Cog 3 word recall 3 3 3 3 Clock Draw 2 2 2 Total Score = Word Recall Score + Clock Draw score 5 5 5 PHQ2/PHQ9 01/04/2022 12:19 PM 01/11/2022 8:53 AM 07/25/2022 2:08 PM 01/23/2023 8:04 AM 07/25/2023 7:42 AM 01/23/2024 8:06 AM 07/29/2024 7:03 AM PHQ2/PHQ 9 DEPRESSION SCREEN QUESTIONAIRE Little interest or pleasure in doing things Not at all Not at all Not at all Not at all Feeling down, depressed, or hopeless Not at all Not at all Not at all Not at all Patient Health Questionnaire-2 Score 0 0 0 0 Trouble falling or staying asleep, or sleeping too much Not at all Not at all Feeling tired or having little energy Not at all Several days Poor appetite or overeating Not at all Not at all Feeling bad about yourself - or that you are a failure or have let yourself or your family down Notat all Not at all Trouble concentrating on things, such as reading the newspaper or watching television Not at all Not at all Moving or speaking so slowly that other people could have noticed? Or the opposite - being so fidgety or restless that you have been moving around a lot more than usual. Not at all Not at all Thoughts that you would be better off or hurting yourself in some way Not at all Not at all Patient Health Questionnaire-9 Score 0 1 How difficult have these problems made it for you to do your work, take care of things at home, or get along with other people? Not difficult at all Not difficult at all LITTLE INTEREST OR PLEASURE IN DOING THINGS 0-Not at All 0-Not at All 0-Not at All FEELING DOWN, DEPRESSSED,OR HOPELESS 0-Not at All 0-Not at All 0-Not at All PHQ2 DEPRESSION TOTAL SCORE 0 0 0 TROUBLE FALLING OR STAYING ASLEEP OR SLEEPING TOO MUCH 0-Not at All FEELING TIRED OR HAVING LITTLE ENERGY 1-Several Days POOR APPETITE OR OVEREATING 0-Not at All FEELING BAD ABOUT YOURSELF 0-Not at All TROUBLE CONCENTRATING ON THINGS 0-Not at All MOVING OR SPEAKING SO SLOWLY THAT OTHER PEOPLE COULD HAVE NOTICED 0-Not at All THOUGHTS THAT YOU WOULD BE BETTER OFF 0-Not at All DEPRESSION SCREENING TOTAL SCORE 0 1 IF YOU CHECKED OFF ANY PROBLEMS Not difficult at all SUBSTANCE USE SCREENING 01/12/2021 8:07 AM 04/10/2023 8:11 AM 04/10/2023 8:13 AM 07/29/2024 7:05 AM Audit C+2 Screening Q1: How often do you have a drink containing alcohol? Monthly or l 4 or more ti 4 or more ti 4 or more ti Q2: How many drinks containing alcohol do you have on a typical day when you are drinking? 1 or 2 1or 2 1 or 2 1 or 2 Q3: How often do you have six or more drinks on one occasion? Weekly Weekly Weekly How often have you used marijuana? 0 0 0 How often have you used an illegal drug or a prescription medication for non- medical reasons? For example, used for the feeling or experience it caused. 0 0 0 Audit-C Score 7 7 7 Substance Use Score 0 0 0 Alcohol and Substance Total Score 7 7 7 The 10-year ASCVD risk score (Ramon SMITH, et al., 2019) is: 23.3% Values used to calculate the score: Age: 69 years Sex: Male Is Non- : No Diabetic: No Tobacco smoker: Yes Systolic Blood Pressure: 145 mmHg Is BP treated: No HDL Cholesterol: 52 MG/DL Total Cholesterol: 158 MG/DL HISTORY Past Medical History: Diagnosis Date Anxiety Arthritis Cataract Cervical stenosis of spine Hyperlipidemia Influenza vaccine administered RANDY (obstructive sleep apnea) Past Surgical History: Procedure Laterality Date COLON SURGERY 03/18/2021 colostomy r/t perferation COLON SURGERY 09/22/2021 COLONOSCOPY N/A 2013 COLONOSCOPY N/A 08/13/2021 colonoscopy via rectum and ostomy with polypectomy and biopsy performed by Federico Mayer MD at [facility] OR COLOSTOMY reversable HERNIA REPAIR Right [facility] HERNIA REPAIR Left [facility] JOINT REPLACEMENT NECK/CHEST PROCEDURE UNLISTED Right [facility], re-built right side of neck. REMOVAL OF SPERM DUCT(S) SMALL INTESTINE SURGERY bowel rupture TOTAL KNEE ARTHROPLASTY Bilateral ZANA Partial KR, done @ [facility] Family History Problem Relation Name Age of Onset Arthritis in Adults Mother [place] Dementia Mother [place] at the end per patient Hypertension Mother [place] Throat cancer Father [place] Heart Disease Father Jose Cancer Father [place] Lung Cancer Brother COPD Brother Jacinto Cancer Sister Roxy Social History Socioeconomic History Marital status: Social History Narrative LIVE AT HOME WITH Social History Tobacco Use Smoking status: Every Day Current packs/day: 0.25 Average packs/day: 0.3 packs/day for 50.0 years (12.5 ttl pk-yrs) Types: Cigarettes Smokeless tobacco: Never Tobacco comments: pT HAS CUT BACK AND IS SMOKING ABOUT 5 CIG A DAY Substance Use Topics Alcohol use: Yes Alcohol/week: 23.3 standard drinks of alcohol Types: 14 Cans of beer per week Comment: daily Current Outpatient Medications Medication Sig Dispense Refill Ascorbic Acid (VITAMIN C) 100 MG tablet Take 1 tablet (100 mg total) by mouth daily. Indications: Vitamin and/or Mineral Deficiency aspirin 81 MG chewable tablet Chew 1 tablet (81 mg total) by mouth nightly at bedtime. Indications:Anticoagulant Therapy atorvastatin (LIPITOR) 40 MG tablet TAKE 1 TABLET BY MOUTH AT BEDTIME CHANGE FROM PRAVASTATIN DUE TO CHOLESTEROL NOT AT GOAL 100 tablet 1 Cholecalciferol (VITAMIN D) 50 MCG (2000 UT) Cap Take 50 mcg by mouth daily. Indications: Vitamin DDeficiency CPAP SUPPLIES 1 Units by Does not apply route nightly at bedtime. Mask, tubing & filters 1 Device 3 metoprolol succinate ER (TOPROL-XL) 25 MG 24 hr tablet take 1 tablet by mouth daily 100 tablet 1 tamsulosin (FLOMAX) 0.4 MG Cap Take 1 capsule (0.4 mg total) by mouth daily. 30 capsule 0 Vitamin E 400 units Tab Take 400 Units by mouth daily. Indications: Nutritional Support zinc gluconate 50 MG Tab Take 1 tablet (50 mg total) by mouth daily. Indications: Nutritional Support amoxicillin (AMOXIL) 500 MG capsule Take 1 capsule (500 mg total) by mouth as needed ( NEEDED FORDENTAL PROCEDURE). (Patient not taking: Reported on 07/29/2024) No current facility-administered medications for this visit. EXAM Filed Vitals: 07/29/24 0701 07/29/24 0711 BP: (!) 156/84 (!) 145/79 Pulse: 65 Resp: 16 Temp: 97.7 ??F (36.5 ??C) TempSrc: Core SpO2: 97% Weight: 78.5 kg (173 lb) Height: 1.702 m (5' 7 ) Patient denies any problems with hearing. ASSESSMENT AND PLAN The patient's current medical problems were reviewed. The following health maintenance schedule was reviewed with the patient and provided in printed form in the after visit summary: Health Maintenance Topic Date Due RSV Immunization or 60+ Years (1 - 1-dose 60+ series) Never done Annual Medicare Wellness Visit Never done COVID-19 Vaccine (2022- season) 2024 DTaP, Tdap and Td Vaccines (2 - Td or Tdap) 01/04/2030 Colorectal Cancer Screening Colonoscopy (10 Years) 08/13/2031 AAA SCREENING Completed Zoster Vaccines Completed Pneumococcal Vaccine: 65+ Years Completed Hepatitis C Completed Meningococcal Vaccine Aged Out RSV Immunizations Under 20 Months Aged Out The following list of Medicare Part B Covered Preventative Services and Identified Health Risks were discussed with the patient and will be reviewed with the patient???s PCP / care team for further follow up and scheduling. Based on Natan's responses to the Health Risk Assessment, we disscussed the following risks. ADVANCE DIRECTIVE The patient was counseled and encouraged to create an Advance Directive. This will be further evaluated and addressed at a follow up visit. ALCOHOL DRINKING PROBLEM The patient was given information on the physical problems drinking alcohol can cause. He was also provided with resource information to aid in quitting. This will be addressed at a future visit. FALL RISK He is at risk for falling and has been provided with information to reduce the risk of falling at home as well as outside the home. I reviewed all the information above with the patient and made screening recommendations based on my findings. GERI PRITCHETT I reviewed the patient's history, vitals from today, answers to the assessment and the services recommended by GERI PRITCHETT. I agree with the findings and recommendations. Reason for Visit: Follow Up (6 month follow up), Hypertension, Hyperlipidemia, and Medicare Wellness History of Present Illness: 69-year-old male here for chronic medical management. 1. Hypertension currently controlled on metoprolol XL 25 mg daily. Denies chest pain shortness of breath or dyspnea on exertion. Blood pressure mildly high this morning but has been normal at home. 2. Hyperlipidemia: Recent blood work shows lipids in good standing. Tolerating 40 mg of Lipitor daily without any muscle aches or weakness. 3. Nocturia: Patient complains of getting up several times a night to urinate. Has decreased urine stream during the day. Denies any burning with urination. Recent PSA was 0.90. Urinalysis done in the office today was completely normal. Will trial 30 days of tamsulosin 0.4 mg daily. 4. Vitamin D 3 deficiency: Patient takes vitamin D 2000 units daily. Vitamin D level suboptimal at 55. Will have him raise it to 3000 units daily. Take with largest meal of the day. Follow Up Hypertension Hyperlipidemia ROS: Review of Systems All other systems reviewed and are negative. Medications: Current Outpatient Medications: Ascorbic Acid (VITAMIN [...] NOT AT GOAL, Disp: 100 tablet, Rfl: 1 Cholecalciferol (VITAMIN D) 50 MCG (2000 UT) Cap, Take 50 mcg by mouth daily. Indications: Vitamin D Deficiency , Disp: , Rfl: CPAP SUPPLIES, 1 Units by Does not apply route nightly at bedtime. Mask, tubing & filters, Disp: 1 Device, Rfl: 3 metoprolol succinate ER (TOPROL-XL) 25 MG 24 hr tablet, take 1 tablet by mouth daily, Disp: 100 tablet, Rfl: 1 tamsulosin (FLOMAX) 0.4 MG Cap, Take 1 capsule (0.4 mg total) by mouth daily., Disp: 30 capsule, Rfl: 0 Vitamin E 400 units Tab, Take 400 [...] biopsy performed by Federico Mayer MD at [facility] OR COLOSTOMY reversable HERNIA REPAIR Right [facility] HERNIA REPAIR Left [facility] JOINT REPLACEMENT NECK/CHEST PROCEDURE UNLISTED Right [facility], re-built right side of neck. REMOVAL OF SPERM DUCT(S) SMALL INTESTINE SURGERY bowel rupture TOTAL KNEE ARTHROPLASTY Bilateral ZANA Partial KR, done @ [facility] Social History Socioeconomic History Marital status: Tobacco Use Smoking status: Every Day Current packs/day: 0.25 Average packs/day: 0.3 packs/day for 50.0 years (12.5 ttl pk-yrs) Types: Cigarettes Smokeless tobacco: Never Tobacco comments: pT HAS CUT BACK AND IS SMOKING ABOUT 5 CIG A DAY Vaping Use Vaping status: Never Used Substance and Sexual Activity Alcohol use: Yes Alcohol/week: 23.3 standard drinks of alcohol Types: 14 Cans of beer per week Comment: daily Drug use: Not Currently Sexual activity: Not Currently Partners: Female Social History Narrative LIVE AT HOME WITH E-Cigarettes Questions Responses E-Cigarette Use Never User E-cigarette/Vaping Substances Questions Responses Nicotine No THC No CBD No Flavoring No E-cigarette/Vaping Devices Questions Responses Disposable No Pre-filled or Refillable Cartridge No Refillable Tank No Pre-filled Pod No Family History Problem Relation Name Age of Onset Arthritis in Adults Mother [place] Dementia Mother Jose at the end per patient Hypertension Mother [place] Throat cancer Father Jose Heart Disease Father Jose Cancer Father Jose Lung Cancer Brother COPD Brother Jacinto Cancer Sister Roxy Family Status Relation Name Status Mother Jose Father Jose Brother Brother Jacinto Sister Roxy No partnership data on file Physical Exam Vitals reviewed. Constitutional: Appearance: Normal appearance. HENT: Right Ear: Tympanic membrane normal. Left Ear: Tympanic membrane normal. Nose: Nose normal. Mouth/Throat: Mucous membranes are moist. Oropharynx is clear. Eyes: Pupils: Pupils are equal, round, and reactive to light. Cardiovascular: Rate and Rhythm: Normal rate and regular rhythm. Pulses: Normal pulses. Heart sounds: Normal heart sounds. No murmur heard. No gallop. Pulmonary: Effort: Pulmonary effort is normal. No respiratory distress. Breath sounds: Normal breath sounds. No wheezing or rales. Musculoskeletal: Cervical back: Normal range of motion. Skin: General: Skin is warm and dry. Capillary Refill: Capillary refill takes less than 2 seconds. Neurological: Mental Status: He is alert. Psychiatric: Mood and Affect: Mood normal. Behavior: Behavior normal. Thought Content: Thought content normal. Judgment: Judgment normal. Filed Vitals: 07/29/24 0701 07/29/24 0711 BP: (!) 156/84 (!) 145/79 Pulse: 65 Resp: 16 Temp: 97.7 ??F (36.5 ??C) TempSrc: Core SpO2: 97% Weight: 78.5 kg (173 lb) Height: 1.702 m (5' 7 ) Results for orders placed or performed in visit on 07/29/24 URINALYSIS AUTO DIP Result Value Ref Range COLOR (U) DARK YELLOW YELLOW TRANSPARENCY CLOUDY (A) CLEAR GLUCOSE (U) NEGATIVE NEGATIVE MG/DL BILIRUBIN (U) NEGATIVE NEGATIVE KETONES MG/DL (U) NEGATIVE NEGATIVE MG/DL SPECIFIC GRAVITY (U) 1.020 1.001 - 1.035 BLOOD (U) NEGATIVE NEGATIVE U PH 7.0 5.0 - 9.0 PROTEIN (U) NEGATIVE NEGATIVE mg/dL UROBILINOGEN 0.2 0.2 - 1.0 EU/dL = mg/dL NITRITES NEGATIVE NEGATIVE MG/DL LEUKOCYTES (U) NEGATIVE NEGATIVE Diagnoses/Impression: 1. Nocturia URINALYSIS AUTO DIP 2. Benign prostatic hyperplasia without lower urinary tract symptoms tamsulosin (FLOMAX) 0.4 MG Cap 3. Primary hypertension 4. Mixed hyperlipidemia 5. Vitamin D deficiency 6. Routine general medical examination at a health care facility 7. Medicare annual wellness visit, initial Recommendations and Plan: Continue all medications as directed. Patient will let me know in a month if the tamsulosin is working for his BPH. If so we will give a 90-day supply with 1 refill. Follow-up in 6 months Orders Placed This Encounter URINALYSIS AUTO DIP tamsulosin (FLOMAX) 0.4 MG Cap Reviewed and updated this visit by provider: GERI PRITCHETT Referring Provider: No ref. 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 [address] [phone] documented as of this encounter Goals Goal [...] Stokes RN documented as of this encounter Procedures Procedure Name Priority Date/Time Associated Diagnosis Comments URINALYSIS AUTO DIP Routine 07/29/2024 Nocturia documented in this encounter Results * (ABNORMAL) URINALYSIS AUTO DIP (07/29/2024) COLOR (U) DARK YELLOW YELLOW [id number], [place] TRANSPARENCY CLOUDY(A) CLEAR [id number], [place] GLUCOSE (U) NEGATIVE NEGATIVE MG/DL [id number] BILIRUBIN (U) NEGATIVE NEGATIVE MG-[address] KETONES MG/DL (U) NEGATIVE NEGATIVE MG/DL [id number] SPECIFIC GRAVITY (U) 1.020 1.001 - 1.035 [id number] BLOOD (U) NEGATIVE NEGATIVE [id number], [place] U PH 7.0 5.0 - 9.0 [id number] PROTEIN (U) NEGATIVE NEGATIVE mg/dL [id number] UROBILINOGEN 0.2 0.2 - 1.0 EU/dL = mg/dL [id number] NITRITES NEGATIVE NEGATIVE MG/DL [id number] LEUKOCYTES (U) NEGATIVE NEGATIVE MG-[address] URINE SPECIMEN OBTAINED BY CLEAN CATCH PROCEDURE / Unknown 07/29/2024 us Ilir NEVAREZ URINE ORDERABLES Final Result [id number] [address] [place] [address], documented in this encounter Visit Diagnoses Diagnosis Nocturia- Primary Benign prostatic hyperplasia without lower urinary tract symptoms Primary hypertension Unspecified essential hypertension Mixed hyperlipidemia Vitamin D deficiency Unspecified vitamin D deficiency Routine general medical examination at a health care facility Medicare annual wellness visit, initial Routine general medical examination at a health care facility documented in this encounter Additional Health Concerns Assessment Noted Time PHQ-9 Depression Total Score: 1 07/29/20 24 7:03 AM CDT documented as of this encounter Care Teams Cook Larder Relationship Specialty [place] [address] [place] [address] PCP - General Physician Mechanical Research Engineer Medical 01/06/24 documented as of this encounter
--- OUTSIDE RECORDS SUMMARY | 2024-11-02 07:47 | XMS_ITS | Encounter Summary ---
Author Organization [facility] Address [address] [place] [address]. [place], [place] [id number] [place] [id number] Care Team Providers Care Honest John Rocket Crew Member Name Role Phone Ilir Nelson Primary Care Provider Reason for Visit * Reason Onset Date Comments Lab Order 07/26/2024 Encounter Details Date Type Department Care Team (Late st Contact Info) Description 07/26/2024 Telephone [facility] Medical Group Family & Internal Medicine [facility] [address] [place] [phone] Ilir Nelson PA [address] [place] [id number] Lab Order Social History Tobacco Use Types [...] on file Legal Sex Male 9:58 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 Answer Date of Assessment Author Status No 10/02/2021 12:38 PM WELL DRILL OPERATOR ROTARY DRILL Acti ve * Do you have serious difficulty walking or climbing stairs? Answer Date of Assessment Author Status No 10/02/2021 12:38 PM WELL DRILL OPERATOR ROTARY DRILL Annette Jorge, R N Active * Do you have difficulty dressing or bathing? Answer Date of Assessment Author Status No 10/02/2021 12:38 PM WELL DRILL OPERATOR ROTARY DRILL Annette Jorge, R N Active * Because of a physical, mental, or emotional condition, do you have difficulty doing errands alone such as visiting a doctor's office or shopping? Answer Date of Assessment Author Status No 10/02/2021 12:38 PM WELL DRILL OPERATOR ROTARY DRILL Annette Jorge, R N Active documented as of this encounter Mental Status * Because of a physical, mental, or emotional condition, do you have serious difficulty concentrating, remembering, or making decisions? Answer Entry Date Author Status No 10/02/2021 12:38 PM WELL DRILL OPERATOR ROTARY DRILL Annette Jorge, R N Active documented in this encounter Progress Notes * Diaz Trent MA - 07/26/2024 8:15 AM CDT Pt downstairs wanting to have lab orders put in, LVM for pt to return call to find out what he is wanting/needing. documented in this encounter Plan of Treatment Upcoming Encounters Date Type Department Care Team (Late st Contact Info) Description 01/27/2025 7:00 AM CDT Office Visit [facility] Medical Group Family & Internal Medicine [facility] [id number] [place] [phone] [place] Nelson [place] [id number] [place] [phone] 10/22/2025 9:15 AM WELL DRILL OPERATOR ROTARY DRILL Office Visit [facility] [id number] [place] [phone] Mily Gan MD [facility] [address] [place] [address] documented as of this encounter Goals Goal [...] documented as of this encounter Care Teams Honest John Rocket Crew Member Relationship Specialty [place] [address] [place] [address] PCP - General Physician [place] [employer] Master Medical 01/06/24 documented as of this encounter
--- OUTSIDE RECORDS SUMMARY | 2024-11-02 07:48 | XMS_ITS | Encounter Summary ---
Author Organization [facility] Address [address] [place] [address]. 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 Answer Date of Assessment Author Status No 10/02/2021 12:38 PM ICT DEVELOPMENT MANAGER Acti ve * Do you have serious difficulty walking or climbing stairs? Answer Date of Assessment Author Status No 10/02/2021 12:38 PM ICT DEVELOPMENT MANAGER Annette Jorge R N Active * Do you have difficulty dressing or bathing? Answer Date of Assessment Author Status No 10/02/2021 12:38 PM ICT DEVELOPMENT MANAGER Annette Jorge R N Active * Because of a physical, mental, or emotional condition, do you have difficulty doing errands alone such as visiting a doctor's office or shopping? Answer Date of Assessment Author Status No 10/02/2021 12:38 PM ICT DEVELOPMENT MANAGER Annette Jorge R N Active documented as of this encounter Mental Status * Because of a physical, mental, or emotional condition, do you have serious difficulty concentrating, remembering, or making decisions? Answer Entry Date Author Status No 10/02/2021 12:38 PM ICT DEVELOPMENT MANAGER Annette Jorge R N Active documented in [...] Description 01/27/2025 7:00 AM CDT Office Visit [facility] Family & Internal Medicine [facility] [id number] [place] [phone] [place] Nelson [place] [address] [place] [phone] 10/22/2025 9:15 AM ICT DEVELOPMENT MANAGER Office Visit [facility] [phone] Mily Gan MD [address] [address] documented as of this encounter Goals Goal [...] Date/Time Associated Diagnosis Comments COMPREHENSIVE METABOLIC PANEL Routine 07/24/2024 9:48 AM CDT Screening for endocrine, metabolic and immunity disorder Vitamin D deficiency Primary hypertension Mixed hyperlipidemia Prostate cancer screening LIPID PANEL Routine 07/24/2024 9:48 AM CDT Screening for endocrine, metabolic and immunity disorder Vitamin D deficiency Primary hypertension Mixed hyperlipidemia Prostate cancer screening CBC W/DIFF AUTOMATED Routine 07/24/2024 9:48 AM CDT Screening for endocrine, metabolic and immunity disorder Vitamin D deficiency Primary hypertension Mixed hyperlipidemia Prostate cancer screening THYROXINE, FREE (FT4) Routine 07/24/2024 9:48 AM CDT Screening for endocrine, metabolic and immunity disorder Vitamin D deficiency Primary hypertension Mixed hyperlipidemia Prostate cancer screening THYROID STIM HORMONE TSH Routine 07/24/2024 9:48 AM CDT Screening for endocrine, metabolic and immunity disorder Vitamin D deficiency Primary hypertension Mixed hyperlipidemia Prostate cancer screening VITAMIN D, 25 OH Routine 07/24/2024 9:48 AM CDT Screening for endocrine, metabolic and immunity disorder Vitamin D deficiency Primary hypertension Mixed hyperlipidemia Prostate cancer screening INSULIN,TOTAL Routine 07/24/2024 9:48 AM CDT Screening for endocrine, metabolic and immunity disorder Vitamin D deficiency Primary hypertension Mixed hyperlipidemia Prostate cancer screening documented in this encounter Results * LIPID PANEL (07/24/2024 9:48 AM CDT) CHOLESTEROL 158 <200.0 MG/DL 07/24/2024 10:58 AM CDT [facility] TRIGLYCERIDES 65 <150 MG/DL 07/24/2024 10:58 AM CDT [facility] HDL 52 >40.0 MG/DL 07/24/2024 10:58 AM CDT [facility] LDL (CALCULATED) 93 <100 MG/DL 07/24/20 10:58 AM CDT [facility] NON HDL CHOLESTEROL 106 <130 MG/DL 07/24 10:58 AM T [facility] CHOL/HDL RATIO 3.0 0.0 - 4.5 07/24/2024 10:58 AM T [facility] VLDL CALCULATION 13 5 - 55 MG/DL 07/24/2024 10:58 AM [facility] LIPID INTERPRETATION 07/24/2024 10:58 AM T [facility] Comment: NIH CONCENSUS REPORT RECOMMENDATIONS: ?ADULT [...] [facility] Final Result Performing Organization Address [facility] Co de Phone Number [facility] [address] [place] [address], [place] [phone] * THYROXINE, FREE (FT4) (07/24/2024 9:48 AM CDT) Pathologist [facility] FREE T4 0.90 0.76 - 1.46 NG/DL 07/24/2024 10:58 AM CDT [facility] 07/24/2024 9:48 AM CDT Ilir [facility] Final Result Performing Organization Address [facility] de Phone Number [facility] [address] [place] [address], [place] [phone] * (ABNORMAL) COMPREHENSIVE METABOLIC PANEL (07/24/2024 9:48 [...] 3.5 - 5.1 MMOL/L 07/24/2024 10:58 AM [facility] CHLORIDE S/P/B 105 100 - 108 MMOL/L 07/24/2024 10:58 AM [facility] CO2 28.8 21 - 32 MMOL/L 07/24/2024 10:58 AM [facility] CALCIUM S/P/B 8.8 8.5 - 10.1 MG/DL 07/24/2024 10:58 AM [facility] BILIRUBIN TOTAL S/P/B 1.2 0.2 - 1.2 MG/DL 07/24/2024 10:58 AM [facility] TOTAL PROTEIN S/P/B 7.6 6.4 - 8.2 G/DL 07/24/2024 10:58 AM [facility] ALBUMIN S/P/B 3.8 3.4 - 5.0 G/DL 07/24/2024 10:58 AM [facility] AST 25 15 - 37 U/L 07/24/2024 10:58 AM [facility] ALT 37 16 - 60 U/L 07/24/2024 10:58 AM [facility] ALKALINE PHOSPHATASE S/P/B 53 50 - 136 U/L 07/24/2024 10:58 AM [facility] ANION GAP 7.2 5 - 15 MMOL/L 07/24/2024 10:58 AM [facility] BUN CREATININE RATIO 17.5 6 - 26 07/24/2024 10:58 AM [facility] A/G RATIO 1.0 1.0 - 2.0 RATIO 07/24/2024 10:58 AM CDT [facility] GFR ESTIMATE >90 >90 ML/MIN/1.7 3 M2 07/24/2024 10:58 AM CDT [facility] Comment: NOTE: [...] Final Result [facility] [address] [place] [address], * (ABNORMAL) CBC W/DIFF AUTOMATED (07/24/2024 9:48 [...] 31.9 - 34.8 G/DL 07/24/2024 10:15 AM CDT [facility] RDW 12.7 12.3 - 14.3 % 07/24/2024 10:15 AM T [facility] PLT 193 151 - 353 x10'3/uL 07/24/2024 10:15 AM [facility] MPV 10.6 9.7 - 11.9 FL 07/24/2024 10:15 AM T [facility] RBC MORPHOLOGY NORMAL 07/24/2024 10:15 AM T [facility] PLT MORPH. NORMAL 07/24/2024 10:15 AM T [facility] WBC MORPHOLOGY NORMAL 07/24/2024 10:15 AM [facility] LYMPHOCYTES % 32.3 15.8 - 45.0 % 07/24/2024 10:15 AM [facility] NEUTROPHILS % 53.5 42.1 - 71.9 % 07/24/2024 10:15 AM [facility] MONOCYTES % 11.4 5.7 - 12.5 % 07/24/2024 10:15 AM [facility] EOSINOPHILS 1.4 0.0 - 5.6 % 07/24/2024 10:15 AM [facility] BASOPHILS 1.0 0.0 - 1.3 % 07/24/2024 10:15 AM [facility] ABS. NEUTROPHILS 2.64 1.40 - 6.00 x10'3/uL 07/24/2024 10:15 AM [facility] IMMATURE GRANS % 0.4 0.0 - 0.5 % 07/24/2024 10:15 AM [facility] ABS. LYMPHOCYTES 1.59 0.80 - 4.70 x10'3/uL 07/24/2024 10:15 AM [facility] 07/24/2024 9:48 AM CDT [facility] Final Result [facility] [address] [place] [address], [place] [phone] * INSULIN,TOTAL (07/24/2024 9:48 AM CDT) Pathologist [facility] INSULIN 10.0 <=18.4 uIU/mL 07/28/2024 3:36 PM CDT [employer] RHIANNON SCHNEIDER Comment: Risk: Optimal ??< or = 18.4 Moderate ? NA High ? >18.4 Adult cardiovascular event risk category cut points (optimal, moderate, high) are based on Insulin Reference interval studies performed at [facility] in 2021. Test Performed by [employer], [facility], [address] [place] [address] Jay Hirsch M.D., Ph.D., Director of Laboratories , [facility] [id number] 07/24/2024 9:48 AM CDT [facility] Final Result Performing Organization Address [facility]/ZIP Co de Phone Number [employer] [address] , * VITAMIN D, 25 OH (07/24/2024 9:48 AM CDT) Pathologist [facility] VITAMIN D 25 HYDROXY S/P/B 49 30 - 100 NG/ML 07/24/2024 11:09 AM CDT [facility] Comment: ? INTERPRETATION ? DEFICIENT ??<20 ? INSUFFICIENT 20-29 ?SUFFICIENT 30-100 07/24/2024 9:48 AM CDT [facility] Final Result Performing Organization Address [facility] Co de Phone Number [facility] [address] [place] [address], [place] [phone] * THYROID STIM HORMONE TSH (07/24/2024 9:48 AM CDT) TSH 1.555 0.358 - 3.74 uIU/ML 07/24/2024 10:58 AM CDT [facility] Comment: HIGH DOSES OF BIOTIN MAY INTERFERE WITH THIS TEST RESULT. CORRELATION TO CLINICAL HISTORY AND PRESENTATION RECOMMENDED. 07/24/2024 9:48 AM CDT [facility] Final Result Performing Organization Address [facility] Co de Phone Number [facility] [address] [place] [address], [place] [phone] documented in this encounter Visit Diagnoses Diagnosis Screening for endocrine, metabolic and immunity disorder Vitamin D deficiency Unspecified vitamin D deficiency Primary hypertension Unspecified essential hypertension Mixed hyperlipidemia Prostate cancer screening Special screening for malignant neoplasm of prostate Screening for prostate cancer Special screening for malignant neoplasm of prostate documented in this encounter Additional Health Concerns Assessment Noted Time PHQ-9 Depression Total Score: 0 01/24/20 23 8:04 AM CDT documented as of this encounter Care Teams Email Marketing Coordinator Relationship Specialty [place] [address] [place] [address] PCP - General Physician Document Control Clerk Medical 01/06/24 documented as of this encounter
--- OUTSIDE RECORDS SUMMARY | 2024-11-02 07:48 | XMS_ITS | Encounter Summary ---
Author Organization [facility] Address [address] [place] [address]. [place], [place] [address] [place] [address] Care Team Providers Care Store Worker Name Role Phone Ilir Nelson Primary Care Provider Reason for Visit * Reason Onset Date Comments Quality Gap Closure 02/22/2024 Encounter Details Date Type Department Care Team (Late st Contact Info) Description 02/22/2024 Patient Outreach [facility] Family & Internal Medicine [address] [phone] Avtar Song MA Quality Gap Closure Social History Tobacco Use Types Packs/Day Years [...] on file Legal Sex Male 9:58 PM DINING SERVICES DIRECTOR Gender Identity Not on file Sexual Orientation Not on file documented as of this encounter Functional Status * RETIRED Are you deaf or do you have serious difficulty hearing Answer Date of Assessment Author Status No 10/02/2021 12:38 PM DINING SERVICES DIRECTOR Acti ve * RETIRED Are you blind or do you have serious difficulty seeing, even when wearing glasses? Answer Date of Assessment Author Status No 10/02/2021 12:38 PM DINING SERVICES DIRECTOR Acti ve * Do you have serious difficulty walking or climbing stairs? Answer Date of Assessment Author Status No 10/02/2021 12:38 PM DINING SERVICES DIRECTOR Annette Jorge R N Active * Do you have difficulty dressing or bathing? Answer Date of Assessment Author Status No 10/02/2021 12:38 PM DINING SERVICES DIRECTOR Annette Jorge R Susan Active * Because of a physical, mental, or emotional condition, do you have difficulty doing errands alone such as visiting a doctor's office or shopping? Answer Date of Assessment Author Status No 10/02/2021 12:38 PM DINING SERVICES DIRECTOR Annette Jorge R Susan Active documented as of this encounter Mental Status * Because of a physical, mental, or emotional condition, do you have serious difficulty concentrating, remembering, or making decisions? Answer Entry Date Author Status No 10/02/2021 12:38 PM DINING SERVICES DIRECTOR Annette Jorge R N Active documented in this encounter Progress Notes * Avtar Song MA - 02/22/2024 2:58 PM CDT I am a patient quality advocate calling this patient on behalf of the virtual stand work team to assess the below quality gaps. If you need to contact me directly- my number is [phone]. Preventive Screenings: Breast Cancer Screening: N/A Notes: n/a Colorectal Cancer Screening: Up to Date Notes:08/13/21 Diabetic Eye Exam: N/A Notes:n/a Falls Risk Screening: Up to Date Notes:01/23/24 Tobacco Cessation: Up to Date Notes:01/23/24 Labs: BMP/CMP: N/A Notes: n/a Hemoglobin A1c: N/A Notes: n/a Lipid: N/A Notes: n/a Urine Albumin-Creatinine Ratio: N/A Notes: n/a Immunizations: Influenza: Up to Date Notes:08/08/23 Pneumococcal: Up to Date Notes:utd Shingles: Up to Date Notes: utd documented in this encounter Plan of Treatment Upcoming Encounters Date Type Department Care Team (Late st Contact Info) Description 01/27/2025 7:00 AM CDT Office Visit [facility] Family & Internal Medicine [facility] [address] [place] [address] [place] [address] [place] [address] 10/22/2025 9:15 AM DINING SERVICES DIRECTOR Office Visit [facility] [address] [phone] Mily Gan MD [facility] [address] [place] [address] documented as of this encounter Goals Goal [...] documented as of this encounter Care Teams Store Worker Relationship Specialty [place] [address] [place] [address] PCP - General Physician Bench Patternmaker Metal Medical 01/06/24 documented as of this encounter
--- OUTSIDE RECORDS SUMMARY | 2024-11-02 07:48 | XMS_ITS | Encounter Summary ---
Author Organization [facility] Address [address] [place] [address]. [place], [place] [address] [place] [address] Care Team Providers Care Role Player Name Role Phone Ilir Nelson Primary Care Provider [phone] Encounter Details Date Type Department Care Team (Latest Contact Info) Description 07/24/2024 Travel Social History Tobacco Use Types Packs/Day [...] on file Legal Sex Male 9:58 PM X RAY CONSULTANT Gender Identity Not on file Sexual Orientation Not on file documented as of this encounter Functional Status * RETIRED Are you deaf or do you have serious difficulty hearing Answer Date of Assessment Author Status No 10/02/2021 12:38 PM X RAY CONSULTANT Acti ve * RETIRED Are you blind or do you have serious difficulty seeing, even when wearing glasses? Answer Date of Assessment Author Status No 10/02/2021 12:38 PM X RAY CONSULTANT Acti ve * Do you have serious difficulty walking or climbing stairs? Answer Date of Assessment Author Status No 10/02/2021 12:38 PM X RAY CONSULTANT Annette Jorge R N Active * Do you have difficulty dressing or bathing? Answer Date of Assessment Author Status No 10/02/2021 12:38 PM X RAY CONSULTANT Annette Jorge R N Active * Because of a physical, mental, or emotional condition, do you have difficulty doing errands alone such as visiting a doctor's office or shopping? Answer Date of Assessment Author Status No 10/02/2021 12:38 PM X RAY CONSULTANT Annette Jorge R N Active documented as of this encounter Mental Status * Because of a physical, mental, or emotional condition, do you have serious difficulty concentrating, remembering, or making decisions? Answer Entry Date Author Status No 10/02/2021 12:38 PM X RAY CONSULTANT Annette Jorge R N Active documented in this encounter Plan of Treatment Upcoming Encounters Date Type Department Care Team (Late st Contact Info) Description 01/27/2025 7:00 AM CDT Office Visit [facility] Family & Internal Medicine [facility] [address] [place] [address] Il[place] Nelson [place] [address] [place] [phone] 10/22/2025 9:15 AM X RAY CONSULTANT Office Visit [facility] [phone] Mily Gan MD [address] [address] documented as of this encounter Goals Goal [...] documented as of this encounter Care Teams Role Player Relationship Specialty [place] [address] [place] [address] PCP - General Physician Regional Vice President Surgical Sales Medical 01/06/24 documented as of this encounter
--- OUTSIDE RECORDS SUMMARY | 2024-11-02 07:49 | XMS_ITS | Encounter Summary ---
Author Organization [facility] Address [address] [place] [address]. [place], [place] [address] [place] [address] Care Team Providers Care Court Stenographer Name Role Phone AkashCandis hedrick BETTY Primary Care Provider [phone] Encounter Details Date Type Department Care Team (Latest Contact Info) Description 10/11/2023 Travel Social History Tobacco Use Types Packs/Day Years Used Date Smoking Tobacco: Some Days Cigarettes Cigars Smokeless Tobacco: Never Comments:Has about 1 a day, a couple puffs. Alcohol Use Standard Drinks/Week Comments Yes 3.3 (1 standard drink = 0.6 oz p ure alcohol) daily AUDIT-C Answer Date Recorded Q1: [...] Date Recorded Patient Health Questionnaire-2 Score 0 07/25/2023 Sex and Gender Information Value Date Recorded Sex Assigned at Not on file Legal Sex Male 9:58 PM RESTAURANT KITCHEN MANAGER Gender Identity Not on file Sexual Orientation Not on file documented as of this encounter Functional Status * RETIRED Are you deaf or do you have serious difficulty hearing Answer Date of Assessment Author Status No 10/02/2021 12:38 PM RESTAURANT KITCHEN MANAGER Acti ve * RETIRED Are you blind or do you have serious difficulty seeing, even when wearing glasses? Answer Date of Assessment Author Status No 10/02/2021 12:38 PM RESTAURANT KITCHEN MANAGER Acti ve * Do you have serious difficulty walking or climbing stairs? Answer Date of Assessment Author Status No 10/02/2021 12:38 PM RESTAURANT KITCHEN MANAGER Annette Jorge R N Active * Do you have difficulty dressing or bathing? Answer Date of Assessment Author Status No 10/02/2021 12:38 PM RESTAURANT KITCHEN MANAGER Annette Jorge R N Active * Because of a physical, mental, or emotional condition, do you have difficulty doing errands alone such as visiting a doctor's office or shopping? Answer Date of Assessment Author Status No 10/02/2021 12:38 PM RESTAURANT KITCHEN MANAGER Annette Jorge R N Active documented as of this encounter Mental Status * Because of a physical, mental, or emotional condition, do you have serious difficulty concentrating, remembering, or making decisions? Answer Entry Date Author Status No 10/02/2021 12:38 PM RESTAURANT KITCHEN MANAGER Annette Jorge R N Active documented in this encounter Plan of Treatment Upcoming Encounters Date Type Department Care Team (Late st Contact Info) Description 01/27/2025 7:00 AM CDT Office Visit [facility] Family & Internal Medicine [facility] [id number] [place] [phone] Ilir Nelson PA [address] [place] [phone] 10/22/2025 9:15 AM RESTAURANT KITCHEN MANAGER Office Visit [facility] [phone] Mily Gan MD [address] [phone] documented as of this encounter Goals Goal [...] Time PHQ-9 Depression Total Score: 0 01/24/20 8:04 AM CDT documented as of this encounter Care Teams Court Stenographer Relationship Specialty [place] [address] [facility] [address] [place] [address] PCP - General Nurse Practitioner Family 02/10/2301/04 documented as of this encounter
--- OUTSIDE RECORDS SUMMARY | 2024-11-02 07:49 | XMS_ITS | Encounter Summary ---
Author Organization [facility] Address [address] [place] [address]. [place], [place] [address] [place] [address] Care Team Providers Care Director Of Parks And Recreation Name Role Phone Ilir Nelson Primary Care Provider [phone] Reason for Visit * Reason Onset Date Comments Pre-visit Gap Closure 01/17/2024 Encounter Details Date Type Department Care Team (Late st Contact Info) Description 01/17/2024 Patient Outreach [facility] Group Family & Internal Medicine [facility] [address] [place] [phone] Lindsay Hdez MA Pre-visit Gap Closure Social History Tobacco Use Types [...] on file Legal Sex Male 9:58 PM STEAM CLEANER Gender Identity Not on file Sexual Orientation Not on file documented as of this encounter Functional Status * RETIRED Are you deaf or do you have serious difficulty hearing Answer Date of Assessment Author Status No 10/02/2021 12:38 PM STEAM CLEANER Acti ve * RETIRED Are you blind or do you have serious difficulty seeing, even when wearing glasses? Answer Date of Assessment Author Status No 10/02/2021 12:38 PM STEAM CLEANER Acti ve * Do you have serious difficulty walking or climbing stairs? Answer Date of Assessment Author Status No 10/02/2021 12:38 PM STEAM CLEANER Annette Jorge R N Active * Do you have difficulty dressing or bathing? Answer Date of Assessment Author Status No 10/02/2021 12:38 PM STEAM CLEANER Annette Jorge R Susan Active * Because of a physical, mental, or emotional condition, do you have difficulty doing errands alone such as visiting a doctor's office or shopping? Answer Date of Assessment Author Status No 10/02/2021 12:38 PM STEAM CLEANER Annette Jorge R Susan Active documented as of this encounter Mental Status * Because of a physical, mental, or emotional condition, do you have serious difficulty concentrating, remembering, or making decisions? Answer Entry Date Author Status No 10/02/2021 12:38 PM STEAM CLEANER Annette Jorge R N Active documented in this encounter Progress Notes * Lindsay Hdez MA - 01/17/2024 1:08 PM CDT Preventive Screenings: Breast Cancer Screening: N/A Notes: Colorectal Cancer Screening: Up to Date Notes: 08/13/2021 10 yr fu Diabetic Eye Exam: N/A Notes: Falls Risk Screening: Needs Follow Up Notes: Tobacco Cessation: Needs Follow Up Notes: Some Day Smoker Labs: BMP/CMP: N/A Notes: Hemoglobin A1c: N/A Notes: Lipid: N/A Notes: Urine Albumin-Creatinine Ratio: N/A Notes: Immunizations: Influenza: Up to Date Notes: Pneumococcal: Up to Date Notes: Shingles: Up to Date Notes: documented in this encounter Plan of Treatment Upcoming Encounters Date Type Department Care Team (Late st Contact Info) Description 01/27/2025 7:00 AM CDT Office Visit [facility] Medical Group Family & Internal Medicine - [place] [address] [place] [address] [place] [address] [place] [address] 10/22/2025 9:15 AM STEAM CLEANER Office Visit [facility] [address] Mily Gan MD [facility] [address] [place] [address] documented as of this encounter [...] documented as of this encounter Care Teams Director Of Parks And Recreation Relationship Specialty [place] [address] [place] [address] PCP - General Physician Tire Service Technician Medical 01/06/24 documented as of this encounter
--- OUTSIDE RECORDS SUMMARY | 2024-11-02 07:49 | XMS_ITS | Encounter Summary ---
Author Organization [facility] Address [address] [place] [address]. [place], [place] [address] [place] [address] Care Team Providers Care A And P Technician Name Role Phone Candis Bee NP Primary Care Provider [phone] Ilir Nelson Primary Care Provider [phone] Reason for Visit * Reason Comments Procedure (SCAN) Encounter Details Date Type Department Care Team (Late st Contact Info) Description 11/28/2023 Scan HEALTH INFO SR[facility]CS Scanned, Doc Med Group Procedure (SCAN) Social History Tobacco Use Types Packs/Day Years [...] on file Legal Sex Male 9:58 PM OFFICE SERVICES MANAGER Gender Identity Not on file Sexual Orientation Not on file documented as of this encounter Functional Status * RETIRED Are you deaf or do you have serious difficulty hearing Answer Date of Assessment Author Status No 10/02/2021 12:38 PM OFFICE SERVICES MANAGER Acti ve * RETIRED Are you blind or do you have serious difficulty seeing, even when wearing glasses? Answer Date of Assessment Author Status No 10/02/2021 12:38 PM OFFICE SERVICES MANAGER Acti ve * Do you have serious difficulty walking or climbing stairs? Answer Date of Assessment Author Status No 10/02/2021 12:38 PM OFFICE SERVICES MANAGER Annette Jorge R Susan Active * Do you have difficulty dressing or bathing? Answer Date of Assessment Author Status No 10/02/2021 12:38 PM OFFICE SERVICES MANAGER Annette Jorge R N Active * Because of a physical, mental, or emotional condition, do you have difficulty doing errands alone such as visiting a doctor's office or shopping? Answer Date of Assessment Author Status No 10/02/2021 12:38 PM OFFICE SERVICES MANAGER Annette Jorge R N Active documented as of this encounter Mental Status * Because of a physical, mental, or emotional condition, do you have serious difficulty concentrating, remembering, or making decisions? Answer Entry Date Author Status No 10/02/2021 12:38 PM OFFICE SERVICES MANAGER Annette Jorge, R N Active documented in this encounter Plan of Treatment Upcoming Encounters Date Type Department Care Team (Late st Contact Info) Description 01/27/2025 7:00 AM CDT Office Visit [facility] Medical Group Family & Internal Medicine [facility] [address] [place] [phone] [place] Nelson [place] [address] [place] [address] 10/22/2025 9:15 AM OFFICE SERVICES MANAGER Office Visit [facility] [address] Mily Gan MD [address] [address] documented as of this encounter Goals Goal [...] Procedure Name Priority Date/Time Associated Diagnosis Comments PULMONARY GENERIC 11/28/2023 documented in this encounter Results * PULMONARY GENERIC (11/28/2023) 11/28/2023 us Doc Med Group Scanned SCANNING Final Resu lt documented in this encounter Visit Diagnoses Not on filedocumented in this encounter Additional Health Concerns Assessment Noted Time PHQ-9 Depression Total Score: 0 01/24/20 23 8:04 AM CDT documented as of this encounter Care Teams A And P Technician Relationship Specialty [place] [address] [address], [address] [place] [address] PCP - General Nurse Practitioner Family 02/10/2301/04 [place] [address] [place] [address] PCP - General Physician Band And Cuff Cutter Medical 01/06/24 documented as of this encounter
--- OUTSIDE RECORDS SUMMARY | 2024-11-02 07:49 | XMS_ITS | Encounter Summary ---
Author Organization [facility] Address [address] [place] [address]. [place], [place] [address] [place] [address] Care Team Providers Care Facilities Mechanical Design Engineer Name Role Phone Candis Bee NP Primary Care Provider [phone] Reason for Referral * Procedure (Routine) - Closed Specialty Diagnoses / Procedures Referred By Contac t Referred To Contact Diagnoses Mild emphysema (CMS/HCC HHS/HCC) Procedures Complete PFT (pre/post [place], Lung Vol, Diff Capacity) (48038, 18843, 41509, [address]) [place] [address] [address], [address] [place] [address] Phone: tel: fax: Referral ID Status Reason Start Date Expiration Date Visits Re quested Visits Authorized [id number] Closed 08/04/2023 09/03/2024 1 1 DRYER Reason for Visit * Procedure (Routine) - Closed Specialty Diagnoses / Procedures Referred By Contac t Referred To Contact Diagnoses Mild emphysema (CMS/HCC HHS/HCC) Procedures Complete PFT (pre/post [place], Lung Vol, Diff Capacity) (74484, 04901, 47563, 655[address]) [place] [address] [address], [address] [place] [address] Phone: tel: fax: Referral ID Status Reason Start Date Expiration Date Visits Re quested Visits Authorized [id number] Closed 08/04/2023 09/03/2024 1 1 Encounter Details Date Type Department Care Team (Latest Contact Info) Description 11/28/2023 9:45 AM ORE DRYER - 11/28/2023 11:59 PM ORE DRYER Hospital Encounter [facility] Cardiopulmonary Services [address] [place] [address] [place] [address] [address], [address] [place] [address] Discharge Disposition: Home or Self Care (Routine [...] on file Legal Sex Male 9:58 PM ORE DRYER Gender Identity Not on file Sexual Orientation Not on file documented as of this encounter Functional Status * RETIRED Are you deaf or do you have serious difficulty hearing Answer Date of Assessment Author Status No 10/02/2021 12:38 PM ORE DRYER Acti ve * RETIRED Are you blind or do you have serious difficulty seeing, even when wearing glasses? Answer Date of Assessment Author Status No 10/02/2021 12:38 PM ORE DRYER Acti ve * Do you have serious difficulty walking or climbing stairs? Answer Date of Assessment Author Status No 10/02/2021 12:38 PM ORE DRYER Annette Jorge, [place] Active * Do you have difficulty dressing or bathing? Answer Date of Assessment Author Status No 10/02/2021 12:38 PM Annette Mercer R N Active * Because of a physical, mental, or emotional condition, do you have difficulty doing errands alone such as visiting a doctor's office or shopping? Answer Date of Assessment Author Status No 10/02/2021 12:38 PM Annette Mercer R N Active documented as of this encounter Mental Status * Because of a physical, mental, or emotional condition, do you have serious difficulty concentrating, remembering, or making decisions? Answer Entry Date Author Status No 10/02/2021 12:38 PM Annette Mercer R N Active documented in this encounter [...] ixed hyperlipidemia TAKE 1 TABLET BY MOUTH EVERY NIGHT AT BEDTIME CHANGE FROM PRAVASTATIN DUE TO CHOLESTEROL NOT AT GOAL 90 tablet 3 01/23/20 24 CPAP SUPPLIESIndications :RANDY on CPAP 1 Units by Does not apply route nightly at bedtime. Mask, tubing & filters 1 Device 3 0 10/09/20 24 metoprolol succinate ER (TOPROL-XL) 25 MG 24 hr tabletIndications:P rimary hypertension take 1 tablet by mouth daily 90 tablet 3 4 12/20/19 24 documented as of this encounter Progress Notes * Candis Bee NP - 11/28/2023 10:00 AM CST Please let patient know PFTs showed mild copd. His calculated age based off his lung function is that of an 88 year old. I strongly encourage him to stop smoking. Is he having any problems breathing or sob? Thanks. DRYER documented in this encounter Procedure Notes * Torri Hernández MD - 11/28/2023 10:00 AM CSTAssociated Order(s): PULMONARY FUNCTION TEST [facility] PULMONARY FUNCTION TEST REPORT Natan Patel INTERPRETATION Please see scanned PFT report for raw values, flow-volume loop, and therapist's comments. Spirometry: Prebronchodilator FVC 4.22 L, 107% predicted. FEV1 2.66 L, 99% predicted. FEV1/FVC 63%. Postbronchodilator FVC 4.45 L, 113% predicted. FEV1 2.72 L, 101% predicted. FEV1/FVC 61%. Less than significant response to bronchodilator. Lung volumes: TLC 118% predicted, RV 114% predicted, ERV 34% predicted. Diffusing capacity: Unadjusted DLCO 79% predicted. IMPRESSION: 1. Mild obstructive ventilatory limitation by gold criteria 2. Less than significant response to bronchodilator this does not preclude use, clinical correlation advised 3. Total lung capacity within normal limits, values near upper limit of normal. 4. Reduction in ERV can be related to increased body habitus or physical deconditioning 5. Unadjusted DLCO within normal limits, near lower limit of normal. TORRI HERNÁNDEZ MD DRYER documented in this encounter Plan of Treatment Upcoming Encounters Date Type Department Care Team (Late st Contact Info) Description 01/27/2025 7:00 AM CDT Office Visit [facility] Medical Group Family & Internal Medicine - [address] [phone] [place] [address] [place] [address] 10/22/2025 9:15 AM ORE DRYER Office Visit [facility] [address] [place] [address] Mily Gan MD [facility]. [facility] [address] [place] [address] documented as of this encounter [...] Name Priority Date/Time Associated Diagnosis Comments PULMONARY FUNCTION TEST Routine 11/28/2023 10:00 AM ORE DRYER Mild emphysema ([facility]/HCC HHS/[facility]) documented in this encounter Results * Complete PFT (pre/post [place], Lung Vol, Diff Capacity) (26402, [address]4821, [address], 17667) (11/28/2023 10:00 AM ORE DRYER) Narrative [facility] - 11/28/2023 10:00 AM ORE DRYER Torri Hernández MD ? 11/28/2023 ??8:45 PM ?? [facility] PULMONARY FUNCTION TEST REPORT Natan Patel INTERPRETATION Please see scanned PFT report for raw values, flow-volume loop, and therapist's comments. Spirometry: Prebronchodilator FVC 4.22 L, 107% predicted. ??FEV1 2.66 L, 99% predicted. ??FEV1/FVC 63%. Postbronchodilator FVC 4.45 L, 113% predicted. ??FEV1 2.72 L, 101% predicted. ??FEV1/FVC 61%. Less than significant response to bronchodilator. Lung volumes: TLC 118% predicted, RV 114% predicted, ERV 34% predicted. Diffusing capacity: Unadjusted DLCO 79% predicted. IMPRESSION: 1. ??Mild obstructive ventilatory limitation by gold criteria 2. ??Less than significant response to bronchodilator this does not preclude use, clinical correlation advised 3. ??Total lung capacity within normal limits, values near upper limit of normal. 4. ??Reduction in ERV can be related to increased body habitus or physical deconditioning 5. ??Unadjusted DLCO within normal limits, near lower limit of normal. TORRI HERNÁNDEZ MD us Candis Bee PAINT TINTER PFT ORDERABLES Final Result [facility] [address] [place] [address], documented in this encounter Visit Diagnoses Diagnosis Mild emphysema (CMS/HCC HHS/HCC) Other emphysema documented in this encounter Administered Medications Inactive Administered Medications - up to 3 most recent administrations Medication Order MAR Action Action Date Dose Rate Site albuterol sulfate HFA 108 (90 Base) MCG/ACT inhaler 2 puff 2 puff, Inhalation, Once, 1 dose, On Mon11/28/23 at 1015 Given 11/28/2023 10:29 AM ORE DRYER 2 puffs documented in this encounter Additional Health Concerns Assessment Noted Time PHQ-9 Depression Total Score: 0 01/24/20 8:04 AM CDT documented as of this encounter Care Teams Facilities Mechanical Design Engineer Relationship Specialty Start Date End Date Candis Bee, BETTY [address], [address] [place] [address] PCP - General Nurse Practitioner Family 02/10/2301/04 documented as of this encounter
--- OUTSIDE RECORDS SUMMARY | 2024-11-02 07:49 | XMS_ITS | Encounter Summary ---
Author Organization [facility] Address [address] [place] [address]. [place], [place] [address] [place] [address] Care Team Providers Care Dinkey Mechanic Name Role Phone AkashCandis hedrick BETTY Primary Care Provider [phone] Encounter Details Date Type Department Care Team (Latest Contact Info) Description 11/28/2023 Travel Social History Tobacco Use Types Packs/Day [...] on file Legal Sex Male 9:58 PM MERCHANDISE WORKER Gender Identity Not on file Sexual Orientation Not on file documented as of this encounter Functional Status * RETIRED Are you deaf or do you have serious difficulty hearing Answer Date of Assessment Author Status No 10/02/2021 12:38 PM MERCHANDISE WORKER Acti ve * RETIRED Are you blind or do you have serious difficulty seeing, even when wearing glasses? Answer Date of Assessment Author Status No 10/02/2021 12:38 PM MERCHANDISE WORKER Acti ve * Do you have serious difficulty walking or climbing stairs? Answer Date of Assessment Author Status No 10/02/2021 12:38 PM MERCHANDISE WORKER Annette Jorge R N Active * Do you have difficulty dressing or bathing? Answer Date of Assessment Author Status No 10/02/2021 12:38 PM MERCHANDISE WORKER Annette Jorge R N Active * Because of a physical, mental, or emotional condition, do you have difficulty doing errands alone such as visiting a doctor's office or shopping? Answer Date of Assessment Author Status No 10/02/2021 12:38 PM MERCHANDISE WORKER Annette Jorge R N Active documented as of this encounter Mental Status * Because of a physical, mental, or emotional condition, do you have serious difficulty concentrating, remembering, or making decisions? Answer Entry Date Author Status No 10/02/2021 12:38 PM MERCHANDISE WORKER Annette Jorge R N Active documented in this encounter Plan of Treatment Upcoming Encounters Date Type Department Care Team (Late st Contact Info) Description 01/27/2025 7:00 AM CDT Office Visit [facility] Medical Group Family & Internal Medicine [facility] [address] [place] [phone] Ilir Nelson PA [address] [place] [id number] 10/22/2025 9:15 AM MERCHANDISE WORKER Office Visit [facility] [address] Mily Gan MD [address] [address] documented as of this encounter Goals Goal [...] documented as of this encounter Care Teams Dinkey Mechanic Relationship Specialty [place] [address] [facility] [address] [place] [address] PCP - General Nurse Practitioner Family 02/10/2301/04 documented as of this encounter
--- OUTSIDE RECORDS SUMMARY | 2024-11-02 07:49 | XMS_ITS | Encounter Summary ---
Author Organization [facility] Address [address] [place] [address]. [place], [place] [id number] [place] [address] Care Team Providers Care Used Car Lot Porter Name Role Phone Ilir Nelson Primary Care Provider Reason for Visit * Reason Comments Follow Up Transfer care6 month follow up Hypertension Hyperlipidemia Refill Request ATORVASTATIN Encounter Details Date Type Department Care Team (Late st Contact Info) Description 01/23/2024 8:00 AM CDT Office Visit [facility] Family & Internal Medicine [facility] [id number] [place] [phone] [place] [address] [facility], [address] [place], [place] [phone] [place] [address] [place], [place] [id number] Follow Up (Transfer care/6 month follow up); Hypertension; Hyperlipidemia; Refill Request (ATORVASTATIN) Social History Tobacco Use Types Packs/Day Years [...] on file Legal Sex Male 9:58 PM MANAGER INFORMATION Gender Identity Not on file Sexual Orientation Not on file documented as of this encounter Last Filed Vital Signs Vital Sign Reading Time Taken Comments Blood Pressure 129/77 01/23/2024 8:12 AM CDT Pulse 74 01/23/2024 8:02 AM CDT Temperature 36.7 ??C (98.1 ??F) 01/23/2024 8:02 AM CD T Respiratory Rate 16 01/23/2024 8:02 AM CDT Oxygen Saturation 97% 01/23/2024 8:02 AM CDT Inhaled Oxygen Concentration - - Weight 78.9 kg (174 lb) 01/23/2024 8:02 AM CDT Height 170.2 cm (5' 7 ) 01/23/2024 8:02 AM CDT Body Mass Index 27.25 01/23/2024 8:02 AM CDT documented in this encounter Functional Status * RETIRED Are you deaf or do you have serious difficulty hearing Answer Date of Assessment Author Status No 10/02/2021 12:38 PM MANAGER INFORMATION Acti ve * RETIRED Are you blind or do you have serious difficulty seeing, even when wearing glasses? Answer Date of Assessment Author Status No 10/02/2021 12:38 PM MANAGER INFORMATION Acti ve * Do you have serious difficulty walking or climbing stairs? Answer Date of Assessment Author Status No 10/02/2021 12:38 PM MANAGER INFORMATION Annette Jorge R N Active * Do you have difficulty dressing or bathing? Answer Date of Assessment Author Status No 10/02/2021 12:38 PM MANAGER INFORMATION Annette Jorge R N Active * Because [...] Instructions * Patient Instructions* GERI Pritchett - 01/23/2024 8:00 AM CDT Ibuprofen 400-600mg every 8 hours for hand pain. documented in this encounter Progress Notes * GERI Pritchett - 01/23/2024 8:00 AM CDT Reason for Visit: Follow Up (Transfer care/6 month follow up), Hypertension, Hyperlipidemia, and Refill Request (ATORVASTATIN) Health Maintenance: Colonoscopy: utd 08/13/2021 Immunizations: utd or declined Body mass index is 27.25 kg/m??. Physical activity: moderate infrequent Dental: good Vision: good Hearing: good Metabolic screening: ordered for 6 months HCV: declined PSA: ordered for 6 months. PSA Date Value Ref Range Status 07/25/2023 1.11 <4.00 NG/ML Final Comment: Test was performed using the Siemens method. Results obtained with other assay methods or kits cannot be used interchangeably with results obtained by the Siemens method. HPI: 68-year-old male transitioning from [place] to ar. 6-month follow-up. 1. Hypertension: On metoprolol ER 25 mg daily. Denies chest pain shortness of breath or dyspnea on exertion 2. Mixed hyperlipidemia: On 40 mg of atorvastatin daily. Denies muscle weakness or aches. Last lipid panel done July 2023 was excellent. 3 vitamin D deficiency: Ordered new vitamin D level. CT lung screening due to smoking history: Was done last year and was normal. Follow Up Hypertension Hyperlipidemia Social History Socioeconomic History Marital status: Spouse name: Not on file Number of children: Not on file Years of education: Not on file Highest education level: Not on file Occupational History Not on file Tobacco Use Smoking status: Every Day Packs/day: 0.25 Years: 50.00 Additional pack years: 0.00 Total pack years: 12.50 Types: Cigarettes Smokeless tobacco: Never Tobacco comments: pT HAS CUT BACK AND IS SMOKING ABOUT 5 CIG A DAY Vaping Use Vaping Use: Never used Substance and Sexual Activity Alcohol use: Yes Alcohol/week: 23.3 standard drinks of alcohol Types: 14 Cans of beer per week Comment: daily Drug use: Not Currently Sexual activity: Not Currently Partners: Female Other Topics Concern Not on file Social History Narrative LIVE AT HOME WITH Social Determinants of Health Financial Resource Strain: Not on file Food Insecurity: Not on file Transportation Needs: Not on file Physical Activity: Not on file Stress: Not on file Social Connections: Not on file Intimate Partner Violence: Not on file Housing Stability: Not on file PHQ-9: 07/25/2023 7:42 AM 01/23/2024 8:06 AM PHQ2/PHQ 9 DEPRESSION SCREEN QUESTIONAIRE Little interest or pleasure in doing things Not at all Not at all Feeling down, depressed, or hopeless Not at all Not at all Patient Health Questionnaire-2 Score 0 0 PAWAN-7 (Generalized Anxiety Disorder) Screening 01/23/2023 8:00 AM 04/10/2023 8:00 AM PAWAN-7 Feeling nervous, anxious and on edge 1 - several days 0 - not at all Not being able to stop or control worrying 0 - not at all 0 - not at all Worrying too much about different things 0 - not at all 0 - not at all Trouble Relaxing 1 - several days 1 - several days Being so restless that it's hard to sit still 1 - several days 3 - nearly every day Becoming easily annoyed or irritable 1 - several days 0 - not at all Feeling afraid as if something awful might happen 0 - not at all 0 - not at all Total Score 4 4 If you checked off any problems, how difficult have those problems made it for you to do your work take care of things at home or get along with other people? not difficult at all not difficult at all ROS: Review of Systems All other systems reviewed and are negative. Medications: Outpatient Medications Marked as Taking for the 01/23/24 encounter (Office Visit) with GERI Pritchett Medication Sig Dispense Refill amoxicillin (AMOXIL) 500 MG capsule Take 1 capsule (500 mg total) by mouth as needed ( NEEDED FORDENTAL PROCEDURE). Ascorbic Acid (VITAMIN C) 100 MG tablet Take 1 tablet (100 mg total) by mouth daily. Indications: Vitamin and/or Mineral Deficiency aspirin 81 MG chewable tablet Chew 1 tablet (81 mg total) by mouth nightly at bedtime. Indications:Anticoagulant Therapy atorvastatin (LIPITOR) 40 MG tablet TAKE 1 TABLET BY MOUTH EVERY NIGHT AT BEDTIME CHANGE FROM PRAVASTATIN DUE TO CHOLESTEROL NOT AT GOAL 90 tablet 1 Cholecalciferol (VITAMIN D) 50 MCG (2000 UT) Cap Take 50 mcg by mouth daily. Indications: Vitamin DDeficiency CPAP SUPPLIES 1 Units by Does not apply route nightly at bedtime. Mask, tubing & filters 1 Device 3 metoprolol succinate ER (TOPROL-XL) 25 MG 24 hr tablet Take 1 tablet (25 mg total) by mouth daily. 90 tablet 1 Vitamin E 400 units Tab Take 400 Units by mouth daily. Indications: Nutritional Support zinc gluconate 50 MG Tab Take 1 tablet (50 mg total) by mouth daily. Indications: Nutritional Support Histories: Allergies Allergen Reactions Morphine Itching Past Medical History: Diagnosis Date Anxiety Arthritis Cataract Cervical stenosis of spine Hyperlipidemia Influenza vaccine administered RANDY (obstructive sleep apnea) Past Surgical History: Procedure Laterality Date COLON SURGERY 03/18/2021 colostomy r/t perferation COLON SURGERY 09/22/2021 COLONOSCOPY N/A 2013 COLONOSCOPY N/A 08/13/2021 colonoscopy via rectum and ostomy with polypectomy and biopsy performed by Federico Mayer MD at [facility] OR COLOSTOMY reversable HERNIA REPAIR Right [facility] HERNIA REPAIR Left [facility] JOINT REPLACEMENT NECK/CHEST PROCEDURE UNLISTED Right [facility], re-built right side of neck. REMOVAL OF SPERM DUCT(S) SMALL INTESTINE SURGERY bowel rupture TOTAL KNEE ARTHROPLASTY Bilateral ZANA Partial KR, done @ [facility] Social History Tobacco Use Smoking status: Every Day Packs/day: 0.25 Years: 50.00 Additional pack years: 0.00 Total pack years: 12.50 Types: Cigarettes Smokeless tobacco: Never Tobacco comments: pT HAS CUT BACK AND IS SMOKING ABOUT 5 CIG A DAY Vaping Use Vaping Use: Never used Substance Use Topics Alcohol use: Yes Alcohol/week: 23.3 standard drinks of alcohol Types: 14 Cans of beer per week Comment: daily Drug use: Not Currently Family History Problem Relation Name Age of Onset Arthritis in Adults Mother Jose Dementia Mother Jose at the end per patient Hypertension Mother [place] Throat cancer Father Jose Heart Disease Father Jose Cancer Father [place] Lung Cancer Brother COPD Brother Jacinto Cancer Sister Roxy Physical Exam Vitals reviewed. Constitutional: Appearance: Normal [...] content normal. Judgment: Judgment normal. Filed Vitals: 01/23/24 0802 01/23/24 0812 BP: (!) 153/83 129/77 Pulse: 74 Resp: 16 Temp: 98.1 ??F (36.7 ??C) TempSrc: Core SpO2: 97% Weight: 78.9 kg (174 lb) Height: 1.702 m (5' 7 ) Body mass index is 27.25 kg/m??. Assessment: Encounter Diagnose(s) ICD-10-CM SNOMED CT(R) 1. Screening for prostate cancer Z12.5 PATIENT ENCOUNTER STATUS PROSTATE SPECIFIC ANTIGEN,SCREENING PROSTATE SPECIFIC ANTIGEN,SCREENING 2. Mixed hyperlipidemia E78.2 MIXED HYPERLIPIDEMIA LIPID PANEL LIPID PANEL atorvastatin (LIPITOR) 40 MG tablet 3. Screening for endocrine, metabolic and immunity disorder Z13.29 PATIENT ENCOUNTER STATUS THYROXINE, FREE (FT4) Z13.228 INSULIN,TOTAL Z13.0 THYROID STIM HORMONE, TSH THYROXINE, FREE (FT4) INSULIN,TOTAL THYROID STIM HORMONE, TSH 4. Vitamin D deficiency E55.9 VITAMIN D DEFICIENCY VITAMIN D, 25 OH VITAMIN D, 25 OH 5. Primary hypertension I10 ESSENTIAL HYPERTENSION COMPREHENSIVE METABOLIC PANEL CBC W/DIFF AUTOMATED COMPREHENSIVE METABOLIC PANEL CBC W/DIFF AUTOMATED metoprolol succinate ER (TOPROL-XL) 25 MG 24 hr tablet Recommendations/Plans: Patient doing well. Reviewed with the patient BMI, blood pressure, diet, exercise, and encouraged healthy lifestyle choices. Screened for substance use, risk factors for STIs, diet and exercise habits, and symptoms of depression. Emphasized normal blood pressure of < 140/90 and lipid and diabetes screening for all men > 35 or for men 20-34 with risk factors. Recommended US screening for AAAfor all men 65-75 who have ever smoked. Recommended prostate screening. Colon screening starting at45. Recommended preventive immunizations according to age. Follow up in 6 months. Return to clinic with new, persistent, or worsening symptoms. Natan Pavan Patel is in agreement to and verbalized understanding of treatment plan with no further questions at this time. GERI PRITCHETT 01/23/2024 10:34 AM documented in this encounter Plan of Treatment Upcoming Encounters Date Type Department Care Team (Late st Contact Info) Description 01/27/2025 7:00 AM CDT Office Visit [facility] Family & Internal Medicine [facility] [id number] [place] [phone] Ilir Nelson PA [address] [place] [address] 10/22/2025 9:15 AM MANAGER INFORMATION Office Visit [facility] [phone] Mily Gan MD [address] [address] documented as of this encounter Goals Goal Patient Goal Type Associated Problems Recent Progress Patient-Stated? Author Establish Plan for Symptom Monitoring General Jesi Ye, RN Monitor - demonstrates appropriate technique of care of indwelling urinary catheter and new ostomy General Jesi Ye RN Patient will return to prior living situation and remain independent in ADLs upon discharge from [facility] Aliya Sotelo RN documented as of this encounter Visit Diagnoses Diagnosis Screening for prostate cancer- Primary Special screening for malignant neoplasm of prostate Mixed hyperlipidemia Screening for endocrine, metabolic and immunity disorder Vitamin D deficiency Unspecified vitamin D deficiency Primary hypertension Unspecified essential hypertension documented in this encounter Additional Health Concerns Assessment Noted Time PHQ-9 Depression Total Score: 0 01/24/20 23 8:04 AM CDT documented as of this encounter Care Teams Used Car Lot Porter Relationship Specialty [place] [address] [place] [address] PCP - General Physician Literary Agent Medical 01/06/24 documented as of this encounter
--- OUTSIDE RECORDS SUMMARY | 2024-11-02 07:49 | XMS_ITS | Encounter Summary ---
Author Organization [facility] Address [address] [place] [address]. [place] [address] [place] [address] Care Team Providers Care Supervisor Telephone Information Name Role Phone Cristal Candis HERNÁNDEZ Primary Care Provider [phone] Reason for Visit * Imaging (Routine) - Closed Specialty Diagnoses / Procedures Referred By Shelby t Referred To Contact RADIOLOGY Diagnoses PAF (paroxysmal atrial fibrillation) ([facility]/HCC [facility]) Procedures USE ECHOCARDIOGRAM W CON USE ECHOCARDIOGRAM Mily Gan MD [facility]. [address] [address] Phone: tel: fax: Referral ID Status Reason Start Date Expiration Date Visits Re quested Visits Authorized [id number] Closed 10/11/2023 10/11/2024 1 1 Encounter Details Date Type Department Care Team (Late st Contact Info) Description 10/20/2023 7:19 AM BILLING DEPARTMENT SUPERVISOR - 10/20/2023 11:59 PM [facility] Hospital Encounter [facility] [address] [place] [address] Mily Gan MD [facility]. [address] [address] Discharge Disposition: Home or Self Care (Routine [...] on file Legal Sex Male 9:58 PM BILLING DEPARTMENT SUPERVISOR Gender Identity Not on file Sexual Orientation Not on file documented as of this encounter Functional Status * RETIRED Are you deaf or do you have serious difficulty hearing Answer Date of Assessment Author Status No 10/02/2021 12:38 PM BILLING DEPARTMENT SUPERVISOR Acti ve * RETIRED Are you blind or do you have serious difficulty seeing, even when wearing glasses? Answer Date of Assessment Author Status No 10/02/2021 12:38 PM BILLING DEPARTMENT SUPERVISOR Acti ve * Do you have serious difficulty walking or climbing stairs? Answer Date of Assessment Author Status No 10/02/2021 12:38 PM BILLING DEPARTMENT SUPERVISOR Annette Jorge R N Active * Do you have difficulty dressing or bathing? Answer Date of Assessment Author Status No 10/02/2021 12:38 PM BILLING DEPARTMENT SUPERVISOR Annette Jorge R N Active * Because of a physical, mental, or emotional condition, do you have difficulty doing errands alone such as visiting a doctor's office or shopping? Answer Date of Assessment Author Status No 10/02/2021 12:38 PM BILLING DEPARTMENT SUPERVISOR Annette Jorge R N Active documented as of this encounter Mental Status * Because of a physical, mental, or emotional condition, do you have serious difficulty concentrating, remembering, or making decisions? Answer Entry Date Author Status No 10/02/2021 12:38 PM BILLING DEPARTMENT SUPERVISOR Annette Jorge R N Active documented in this encounter Medications at Time of Discharge Ascorbic Acid (VITAMIN C) 100 MG tabletIndications:V itamin and/or Mineral Deficiency Take 1 tablet (100 mg total) by mouth daily. Indications: Vitamin and/or Mineral Deficiency 1 aspirin 81 MG chewable tabletIndications:A nticoagulant Therapy Chew 1 tablet (81 mg total) by mouth nightly at bedtime. Indications: Anticoagulant Therapy 1 Cholecalciferol (VITAMIN D) 50 MCG (1999 UT) CapIndications:Penelope min D Deficiency Take 50 [...] 25 MG 24 hr tabletIndications:P rimary hypertension Take 1 tablet (25 mg total) by mouth daily. 90 tablet 3 11/14/19 24 documented as of this encounter Plan of Treatment Upcoming Encounters Date Type Department Care Team (Late st Contact Info) Description 01/27/2025 7:00 AM CDT Office Visit [facility] Group Family & Internal Medicine - [place] [address] [place] [phone] [place] [address] [place] [address] 10/22/2025 9:15 AM BILLING DEPARTMENT SUPERVISOR Office Visit [facility] [address] [place] [phone] Mily aGn MD [facility]. [place] [address] [place] [address] documented as of this encounter [...] Procedure Name Priority Date/Time Associated Diagnosis Comments USE ECHOCARDIOGRAM W CON Routine 10/20/2023 9:13 AM BILLING DEPARTMENT SUPERVISOR PAF (paroxysmal atrial fibrillation) ([facility]) documented in this encounter Results * USE ECHOCARDIOGRAM W CON (10/20/2023 9:13 AM BILLING DEPARTMENT SUPERVISOR) Anatomical Region Laterality Modality NA Ultrasound 10/20/2023 7:37 AM BILLING DEPARTMENT SUPERVISOR Narrative 10/23/2023 1:01 PM BILLING DEPARTMENT SUPERVISOR ?YAMILETH ? OUTREACH Pat.Name: ??Natan Patel ? Pat.ID: ?[id number] ? St.Date: ?? 10/20/2023 ? Refer.MD: ??Outreach, [facility] Imaging Exam Time: 7:37:00 AM ?Study Type:OUTREACH ? Height: ?66.9 in ? Weight: ?169 lb ? BSA: ? 1.88 m2 ?Age: ??1955,68Y ? Sex: ? M ? Sonogrphr: Cr ? Pat. Stat.:Outpatient ? Reason for Study:PAF ? Procedures: Study performed at [place], [place] and interpreted by [facility]. 2D, M-mode, Doppler, Color Flow, Myocardial contrast was used to enhance endocardial definition. ++++++++++++++++++++++++++++++++++++ SUMMARY: ++++++++++++++++++++++++++++++++++++ The left ventricular size is normal. Estimated left ventricular ejection fraction is 55-60%. Left ventricular diastolic function is normal. Wall motion appears normal in all segments. The right ventricle size is normal. The right ventricular function is normal. Left atrial size is normal. The right atrial size is normal. Trace aortic regurgitation. There is trace mitral regurgitation. There is trace tricuspid regurgitation. Pulmonary artery systolic pressure is not reliably assessed. Aortic root is mildly dilated (4.2 cm at sinus of valsalva). ++++++++++++++++++++++++++++++++++++ FINDINGS: ++++++++++++++++++++++++++++++++++++ LV: ? The left ventricular size is normal. The left ventricular ?systolic function is normal. Estimated left ventricular ?ejection fraction is 50-55%. Left ventricular diastolic ?function is normal. WM: ? Wall motion appears normal in all segments. RV: ? The right ventricle size is normal. The right ventricular ?function is normal. LA: ? Left atrial size is normal. RA: ? The right atrial size is normal. LEON: ? No evidence of pericardial effusion. AO: ? Aortic root is mildly dilated (4.2 cm at sinus of valsalva). PA: ? No evidence of pulmonary hypertension. SVn: ?Inferior vena cava is normal. AV: ? The aortic valve is trileaflet. There is no aortic stenosis. ?Trace aortic regurgitation. MV: ? The mitral valve is structurally normal. There is trace ?mitral regurgitation. PV: ? Pulmonic valve not well visualized. TV: ? The tricuspid valve appears structurally normal. There is ?trace tricuspid regurgitation. <Electronic Signature> 10/23/2023 01:01 PM Semaj Simmons M.D. Procedure Note Semaj Simmons MD - 10/23/2023 YAMILETH MEHTA Pat.Name: Natan Patel Pat.ID: [id number] .Date: 10/20/2023 Refer.MD: Tyson, [facility] Imaging Exam Time: 7:37:00 AM Study Type:TYSON Height: 66.9 in Weight: 169 lb BSA: 1.88 m2 Age: 9 1955,68Y Sex: M Sonogrphr: Cr Pat. Stat.:Outpatient Reason for Study:PAF Procedures: Study performed at [place], [place] and interpreted by [facility]. 2D, M-mode, Doppler, Color Flow, Myocardial contrast was used to enhance endocardial definition. ++++++++++++++++++++++++++++++++++++ SUMMARY: ++++++++++++++++++++++++++++++++++++ The left ventricular size is normal. Estimated left ventricular ejection fraction is 55-60%. Left ventricular diastolic function is normal. Wall motion appears normal in all segments. The right ventricle size is normal. The right ventricular function is normal. Left atrial size is normal. The right atrial size is normal. Trace aortic regurgitation. There is trace mitral regurgitation. There is trace tricuspid regurgitation. Pulmonary artery systolic pressure is not reliably assessed. Aortic root is mildly dilated (4.2 cm at sinus of valsalva). ++++++++++++++++++++++++++++++++++++ FINDINGS: ++++++++++++++++++++++++++++++++++++ LV: The left ventricular size is normal. The left ventricular systolic function is normal. Estimated left ventricular ejection fraction is 50-55%. Left ventricular diastolic function is normal. WM: Wall motion appears normal in all segments. RV: The right ventricle size is normal. The right ventricular function is normal. LA: Left atrial size is normal. RA: The right atrial size is normal. LEON: No evidence of pericardial effusion. AO: Aortic root is mildly dilated (4.2 cm at sinus of valsalva). PA: No evidence of pulmonary hypertension. SVn: Inferior vena cava is normal. AV: The aortic valve is trileaflet. There is no aortic stenosis. Trace aortic regurgitation. MV: The mitral valve is structurally normal. There is trace mitral regurgitation. PV: Pulmonic valve not well visualized. TV: The tricuspid valve appears structurally normal. There is trace tricuspid regurgitation. <Electronic Signature> 10/23/2023 01:01 PM Semaj Simmons M.D. Mily Gan MD ECHO Final Result documented in this encounter Visit Diagnoses Diagnosis PAF (paroxysmal atrial fibrillation) (CMS/HCC [facility]/HCC) Atrial fibrillation documented in this encounter Administered Medications Inactive Administered Medications - up to 3 most recent administrations Medication Order MAR Action Action Date Dose Rate Site perflutren lipid microsphere (DEFINITY) injection 2 mL 2 mL, Intravenous, IMG once as needed, Contrast, 1 dose, Starting on Mon10/20/23 at 0911, Until Mon10/20/23 at 0855, Administer over 30-60 seconds. Follow with 10 mL saline flush. Given 10/20/2023 8:55 AM BILLING DEPARTMENT SUPERVISOR 2 mLs documented in this encounter Additional Health Concerns Assessment Noted Time PHQ-9 Depression Total Score: 0 01/24/20 8:04 AM CDT documented as of this encounter Care Teams Supervisor Telephone Information Relationship Specialty [place] [address] [facility], [address] [place] [address] PCP - General Nurse Practitioner Family 02/10/2301/04 documented as of this encounter
--- OUTSIDE RECORDS SUMMARY | 2024-11-02 07:49 | XMS_ITS | Encounter Summary ---
Author Organization [facility] Address [address] [place] [address]. [place], [place] [address] [place] [address] Care Team Providers Care Community Arts Worker Name Role Phone AkashCandis hedrick BETTY Primary Care Provider [phone] Encounter Details Date Type Department Care Team (Latest Contact Info) Description 10/20/2023 Travel Social History Tobacco Use Types Packs/Day [...] on file Legal Sex Male 9:58 PM ON SITE PROPERTY MANAGER Gender Identity Not on file Sexual Orientation Not on file documented as of this encounter Functional Status * RETIRED Are you deaf or do you have serious difficulty hearing Answer Date of Assessment Author Status No 10/02/2021 12:38 PM ON SITE PROPERTY MANAGER Acti ve * RETIRED Are you blind or do you have serious difficulty seeing, even when wearing glasses? Answer Date of Assessment Author Status No 10/02/2021 12:38 PM ON SITE PROPERTY MANAGER Acti ve * Do you have serious difficulty walking or climbing stairs? Answer Date of Assessment Author Status No 10/02/2021 12:38 PM ON SITE PROPERTY MANAGER Annette Jorge R N Active * Do you have difficulty dressing or bathing? Answer Date of Assessment Author Status No 10/02/2021 12:38 PM ON SITE PROPERTY MANAGER Annette Jorge R N Active * Because of a physical, mental, or emotional condition, do you have difficulty doing errands alone such as visiting a doctor's office or shopping? Answer Date of Assessment Author Status No 10/02/2021 12:38 PM ON SITE PROPERTY MANAGER Annette Jorge R N Active documented as of this encounter Mental Status * Because of a physical, mental, or emotional condition, do you have serious difficulty concentrating, remembering, or making decisions? Answer Entry Date Author Status No 10/02/2021 12:38 PM ON SITE PROPERTY MANAGER Annette Jorge R N Active documented in this encounter Plan of Treatment Upcoming Encounters Date Type Department Care Team (Late st Contact Info) Description 01/27/2025 7:00 AM CDT Office Visit [facility] Family & Internal Medicine [facility] [address] [place] [phone] Ilir Nelson PA [address] [place] [phone] 10/22/2025 9:15 AM ON SITE PROPERTY MANAGER Office Visit [facility] [address] Mily Gan MD [address] [phone] documented as of this encounter Goals Goal [...] documented as of this encounter Care Teams Community Arts Worker Relationship Specialty [place] [address] [facility] [address] [place] [address] PCP - General Nurse Practitioner Family 02/10/2301/04 documented as of this encounter
--- OUTSIDE RECORDS SUMMARY | 2024-11-02 07:49 | XMS_ITS | Encounter Summary ---
Author Organization [facility] Address [address] [place] [address]. [place], [place] [address] [place] [address] Care Team Providers Care Bullard Machine Operator Name Role Phone Ilir Nelson Primary Care Provider Encounter Details Date Type Department Care Team (Latest Contact Info) Description 01/15/2024 Travel Social History Tobacco Use Types Packs/Day [...] on file Legal Sex Male 9:58 PM NATURAL RESOURCES ENGINEER Gender Identity Not on file Sexual Orientation Not on file documented as of this encounter Functional Status * RETIRED Are you deaf or do you have serious difficulty hearing Answer Date of Assessment Author Status No 10/02/2021 12:38 PM NATURAL RESOURCES ENGINEER Acti ve * RETIRED Are you blind or do you have serious difficulty seeing, even when wearing glasses? Answer Date of Assessment Author Status No 10/02/2021 12:38 PM NATURAL RESOURCES ENGINEER Actmonique ve * Do you have serious difficulty walking or climbing stairs? Answer Date of Assessment Author Status No 10/02/2021 12:38 PM NATURAL RESOURCES ENGINEER Annette Jorge R N Active * Do you have difficulty dressing or bathing? Answer Date of Assessment Author Status No 10/02/2021 12:38 PM NATURAL RESOURCES ENGINEER Annette Jorge R N Active * Because of a physical, mental, or emotional condition, do you have difficulty doing errands alone such as visiting a doctor's office or shopping? Answer Date of Assessment Author Status No 10/02/2021 12:38 PM NATURAL RESOURCES ENGINEER Annette Jorge R N Active documented as of this encounter Mental Status * Because of a physical, mental, or emotional condition, do you have serious difficulty concentrating, remembering, or making decisions? Answer Entry Date Author Status No 10/02/2021 12:38 PM NATURAL RESOURCES ENGINEER Annette Jorge R N Active documented in this encounter Plan of Treatment Upcoming Encounters Date Type Department Care Team (Late st Contact Info) Description 01/27/2025 7:00 AM CDT Office Visit [facility] Medical Group Family & Internal Medicine [facility] [address] [place] [phone] Ilir Nelson PA [address] [place] [phone] 10/22/2025 9:15 AM NATURAL RESOURCES ENGINEER Office Visit [facility] [phone] Mily Gan MD [address] [address] documented as of this encounter Goals Goal [...] documented as of this encounter Care Teams Bullard Machine Operator Relationship Specialty [place] [address] [place] [address] PCP - General Physician [facility] 01/06/24 documented as of this encounter
--- OUTSIDE RECORDS SUMMARY | 2024-11-02 07:49 | XMS_ITS | Encounter Summary ---
Author Organization [facility] Address [address] [place] [address]. [place] [address] [place] [address] Care Team Providers Care Visual Merchandising Coordinator Name Role Phone AkashCandis hedrick BETTY Primary Care Provider Reason for Visit * Reason Onset Date Comments Results 10/26/2023 Encounter Details Date Type Department Care Team ([facility] st Contact Info) Description 10/26/2023 Telephone [place] [address] [address] Rafaela Goncalves, RN Results Social History Tobacco Use Types Packs/Day [...] on file Legal Sex Male 9:58 PM RACKET STRINGER Gender Identity Not on file Sexual Orientation Not on file documented as of this encounter Functional Status * RETIRED Are you deaf or do you have serious difficulty hearing Answer Date of Assessment Author Status No 10/02/2021 12:38 PM RACKET STRINGER Acti ve * RETIRED Are you blind or do you have serious difficulty seeing, even when wearing glasses? Answer Date of Assessment Author Status No 10/02/2021 12:38 PM RACKET STRINGER Acti ve * Do you have serious difficulty walking or climbing stairs? Answer Date of Assessment Author Status No 10/02/2021 12:38 PM RACKET STRINGER Annette Jorge, R N Active * Do you have difficulty dressing or bathing? Answer Date of Assessment Author Status No 10/02/2021 12:38 PM RACKET STRINGER Annette Jorge, R N Active * Because of a physical, mental, or emotional condition, do you have difficulty doing errands alone such as visiting a doctor's office or shopping? Answer Date of Assessment Author Status No 10/02/2021 12:38 PM RACKET STRINGER Annette Jorge, R N Active documented as of this encounter Mental Status * Because of a physical, mental, or emotional condition, do you have serious difficulty concentrating, remembering, or making decisions? Answer Entry Date Author Status No 10/02/2021 12:38 PM RACKET STRINGER Annette Jorge, R N Active documented in this encounter Progress Notes * Rafaela Goncalves RN - 10/26/2023 11:41 AM CST Please let patient know his echocardiogram looks good. Normal LV systolic function with no significant valvular abnormalities. Above message from Savannah NEVAREZ. [employer] message sent to the patient with the above information. ET STRINGER documented in this encounter Plan of Treatment Upcoming Encounters Date Type Department Care Team (Late st Contact Info) Description 01/27/2025 7:00 AM CDT Office Visit [facility] Medical Group Family & Internal Medicine - [place] [address] [place] [phone] [place] Nelson [place] [address] [place] [phone] 10/22/2025 9:15 AM RACKET STRINGER Office Visit [facility] [address] [place] [address] Mily Gan MD [facility] [address] [place] [address] documented as of this encounter Goals Goal [...] documented as of this encounter Care Teams Visual Merchandising Coordinator Relationship Specialty [place] [address] [address], [address] [place] [address] PCP - General Nurse Practitioner Family 02/10/2301/04 documented as of this encounter
--- OUTSIDE RECORDS SUMMARY | 2024-11-02 07:50 | XMS_ITS | Encounter Summary ---
Author Organization [facility] Address [address] [place] [address]. [place], [place] [address] [place] [address] Care Team Providers Care Hvac R Instructor Name Role Phone Candis Bee NP Primary Care Provider [phone] Ilir Nelson Primary Care Provider [phone] Encounter Details Date Type Department Care Team (Latest Contact Info) Description 09/09/2023 Scan HEALTH INFO SRVCS Scanned, Doc Med [...] on file Legal Sex Male 9:58 PM CLINICAL EDUCATION ASSISTANT Gender Identity Not on file Sexual Orientation Not on file documented as of this encounter Functional Status * RETIRED Are you deaf or do you have serious difficulty hearing Answer Date of Assessment Author Status No 10/02/2021 12:38 PM CLINICAL EDUCATION ASSISTANT Acti ve * RETIRED Are you blind or do you have serious difficulty seeing, even when wearing glasses? Answer Date of Assessment Author Status No 10/02/2021 12:38 PM CLINICAL EDUCATION ASSISTANT Acti ve * Do you have serious difficulty walking or climbing stairs? Answer Date of Assessment Author Status No 10/02/2021 12:38 PM CLINICAL EDUCATION ASSISTANT Annette Jorge R N Active * Do you have difficulty dressing or bathing? Answer Date of Assessment Author Status No 10/02/2021 12:38 PM CLINICAL EDUCATION ASSISTANT Annette Jorge R N Active * Because of a physical, mental, or emotional condition, do you have difficulty doing errands alone such as visiting a doctor's office or shopping? Answer Date of Assessment Author Status No 10/02/2021 12:38 PM CLINICAL EDUCATION ASSISTANT Annette Jorge R N Active documented as of this encounter Mental Status * Because of a physical, mental, or emotional condition, do you have serious difficulty concentrating, remembering, or making decisions? Answer Entry Date Author Status No 10/02/2021 12:38 PM CLINICAL EDUCATION ASSISTANT Annette Jorge R N Active documented in this encounter Plan of Treatment Upcoming Encounters Date Type Department Care Team (Late st Contact Info) Description 01/27/2025 7:00 AM CDT Office Visit [facility] Medical Group Family & Internal Medicine [facility] [address] [place] [address] [place] [address] [place] [address] 10/22/2025 9:15 AM CLINICAL EDUCATION ASSISTANT Office Visit [facility] [phone] Mily Gan MD [address] [address] documented as of this encounter Goals Goal Patient Goal Type Associated Problems Recent Progress Patient-Stated? Author Establish Plan for Symptom Monitoring General No Jesi Cochran, RN Monitor - demonstrates appropriate technique of care of indwelling urinary catheter and new ostomy General No Jesi Cochran, RN Patient will return to prior living situation and remain independent in ADLs upon discharge from hospital General No Aliya Stokes RN documented as of this encounter Visit Diagnoses Not on filedocumented in this encounter Additional Health Concerns Assessment Noted Time PHQ-9 Depression Total Score: 0 01/24/20 8:04 AM CDT documented as of this encounter Care Teams Hvac R Instructor Relationship Specialty [place] [address] [address], [address] [place] [address] PCP - General Nurse Practitioner Family 02/10/2301/04 [place] [address] [place] [address] PCP - General Physician [facility] 01/06/24 documented as of this encounter
--- OUTSIDE RECORDS SUMMARY | 2024-11-02 07:50 | XMS_ITS | Encounter Summary ---
Author Organization [facility] Address [address] [place] [address]. [place], [place] [address] [place] [address] Care Team Providers Care Banquet Server On Call Name Role Phone AkashCandis hedrick BETTY Primary Care Provider [phone] Encounter Details Date Type Department Care Team (Latest Contact Info) Description 08/21/2023 Travel Social History Tobacco Use Types Packs/Day [...] on file Legal Sex Male 9:58 PM CONTRACT FORESTER Gender Identity Not on file Sexual Orientation Not on file documented as of this encounter Functional Status * RETIRED Are you deaf or do you have serious difficulty hearing Answer Date of Assessment Author Status No 10/02/2021 12:38 PM CONTRACT FORESTER Acti ve * RETIRED Are you blind or do you have serious difficulty seeing, even when wearing glasses? Answer Date of Assessment Author Status No 10/02/2021 12:38 PM CONTRACT FORESTER Acti ve * Do you have serious difficulty walking or climbing stairs? Answer Date of Assessment Author Status No 10/02/2021 12:38 PM CONTRACT FORESTER Annette Jorge R N Active * Do you have difficulty dressing or bathing? Answer Date of Assessment Author Status No 10/02/2021 12:38 PM CONTRACT FORESTER Annette Jorge R N Active * Because of a physical, mental, or emotional condition, do you have difficulty doing errands alone such as visiting a doctor's office or shopping? Answer Date of Assessment Author Status No 10/02/2021 12:38 PM CONTRACT FORESTER Annette Jorge R N Active documented as of this encounter Mental Status * Because of a physical, mental, or emotional condition, do you have serious difficulty concentrating, remembering, or making decisions? Answer Entry Date Author Status No 10/02/2021 12:38 PM CONTRACT FORESTER Annette Jorge R N Active documented in this encounter Plan of Treatment Upcoming Encounters Date Type Department Care Team (Late st Contact Info) Description 01/27/2025 7:00 AM CDT Office Visit [facility] Medical Group Family & Internal Medicine [facility] [address] [place] [phone] Ilir Nelson PA [address] [place] [phone] 10/22/2025 9:15 AM CONTRACT FORESTER Office Visit [facility] [address] Mily Gan MD [address] [phone] documented as of this encounter Goals Goal [...] documented as of this encounter Care Teams Banquet Server On Call Relationship Specialty [place] [address] [facility], [address] [place] [address] PCP - General Nurse Practitioner Family 02/10/2301/04 documented as of this encounter
--- OUTSIDE RECORDS SUMMARY | 2024-11-02 07:50 | XMS_ITS | Encounter Summary ---
Author Organization [facility] Address [address] [place] [address]. [place], [place] [address] [place] [address] Care Team Providers Care Dust Box Tender Name Role Phone Candis Bee NP Primary Care Provider [phone] Reason for Visit * Reason Onset Date Comments Medication Request 08/23/2023 Encounter Details Date Type Department Care Team (Late st Contact Info) Description 08/23/2023 Telephone [facility] Medical Group Family & Internal Medicine [facility] [address] [place] [address] [place] [address] [facility], [address] [place] [address] Medication Request Social History Tobacco Use Types [...] on file Legal Sex Male 9:58 PM TELEPHOTO ENGINEER Gender Identity Not on file Sexual Orientation Not on file documented as of this encounter Functional Status * RETIRED Are you deaf or do you have serious difficulty hearing Answer Date of Assessment Author Status No 10/02/2021 12:38 PM TELEPHOTO ENGINEER Acti ve * RETIRED Are you blind or do you have serious difficulty seeing, even when wearing glasses? Answer Date of Assessment Author Status No 10/02/2021 12:38 PM TELEPHOTO ENGINEER Acti ve * Do you have serious difficulty walking or climbing stairs? Answer Date of Assessment Author Status No 10/02/2021 12:38 PM TELEPHOTO ENGINEER Annette Jorge, R N Active * Do you have difficulty dressing or bathing? Answer Date of Assessment Author Status No 10/02/2021 12:38 PM TELEPHOTO ENGINEER Annette Jorge, R N Active * Because of a physical, mental, or emotional condition, do you have difficulty doing errands alone such as visiting a doctor's office or shopping? Answer Date of Assessment Author Status No 10/02/2021 12:38 PM TELEPHOTO ENGINEER Annette Jorge, R N Active documented as of this encounter Mental Status * Because of a physical, mental, or emotional condition, do you have serious difficulty concentrating, remembering, or making decisions? Answer Entry Date Author Status No 10/02/2021 12:38 PM TELEPHOTO ENGINEER Annette Jorge, R N Active documented in this encounter Progress Notes * Aamir Cruz RN - 08/23/2023 2:09 PM CDT Script sent to mail order. * Marilu Epstein LPN - 08/23/2023 1:35 PM CDT Please send a 90 day supply of metoprolol succinate ER (TOPROL-XL) 25 MG 24 hr tablet To [facility] he picked up 30 day local pharm and that canceled out the mail order pharm So will need a new order sent to [facility] in 25 days please [phone] documented in this encounter Plan of Treatment Upcoming Encounters Date Type Department Care Team (Late st Contact Info) Description 01/27/2025 7:00 AM CDT Office Visit [facility] Medical Group Family & Internal Medicine [facility] [address] [place] [address] [place] [address] [place], [place] [phone] 10/22/2025 9:15 AM TELEPHOTO ENGINEER Office Visit [facility] [phone] Mily Gan MD [place] [address] [place], [place] [phone] documented as of this encounter Goals Goal [...] as of this encounter Visit Diagnoses Diagnosis Primary hypertension Unspecified essential hypertension documented in this encounter Additional Health Concerns Assessment Noted Time PHQ-9 Depression Total Score: 0 01/24/20 8:04 AM CDT documented as of this encounter Care Teams Dust Box Tender Relationship Specialty [place] [address] [facility], [address] [place] [address] PCP - General Nurse Practitioner Family 02/10/2301/04 documented as of this encounter
--- OUTSIDE RECORDS SUMMARY | 2024-11-02 07:50 | XMS_ITS | Encounter Summary ---
Author Organization [facility] Address [address] [place] [address]. [place], [place] [address] [place] [address] Care Team Providers Care Worship Director Name Role Phone Candis Bee NP Primary Care Provider [phone] Reason for Visit * Reason Onset Date Comments Holter Monitor 08/14/2023 * Imaging (Routine) - Closed Specialty Diagnoses / Procedures Referred By Shelby jama Referred To Contact Diagnoses Atrial fibrillation, unspecified type ([facility]) Procedures CLINIC - OUTPATIENT EVENT RECORDER (ECG) UP TO 30 DAYS COMPLETE ([place]ter) [place] [address] [address], [address] [place] [address] Phone: tel: fax: [facility] [address] [address] Phone: tel: fax: Referral ID Status Reason Start Date Expiration Date Visits Re quested Visits Authorized [id number] Closed 08/08/2023 08/08/2024 1 1 Encounter Details Date Type Department Care Team (Late st Contact Info) Description 08/14/2023 5:00 AM CDT Telephone [facility], [address] [id number] [place] [address] [address], [address] [place] [address] Holter Monitor Social History Tobacco Use Types Packs/Day Years [...] on file Legal Sex Male 9:58 PM PIN OR CLIP FASTENER Gender Identity Not on file Sexual Orientation Not on file documented as of this encounter Functional Status * RETIRED Are you deaf or do you have serious difficulty hearing Answer Date of Assessment Author Status No 10/02/2021 12:38 PM PIN OR CLIP FASTENER Acti ve * RETIRED Are you blind or do you have serious difficulty seeing, even when wearing glasses? Answer Date of Assessment Author Status No 10/02/2021 12:38 PM PIN OR CLIP FASTENER Acti ve * Do you have serious difficulty walking or climbing stairs? Answer Date of Assessment Author Status No 10/02/2021 12:38 PM PIN OR CLIP FASTENER Annette Jorge R N Active * Do you have difficulty dressing or bathing? Answer Date of Assessment Author Status No 10/02/2021 12:38 PM PIN OR CLIP FASTENER Annette Jorge R N Active * Because of a physical, mental, or emotional condition, do you have difficulty doing errands alone such as visiting a doctor's office or shopping? Answer Date of Assessment Author Status No 10/02/2021 12:38 PM PIN OR CLIP FASTENER Annette Jorge R N Active documented as of this encounter Mental Status * Because of a physical, mental, or emotional condition, do you have serious difficulty concentrating, remembering, or making decisions? Answer Entry Date Author Status No 10/02/2021 12:38 PM PIN OR CLIP FASTENER Annette Jorge R N Active documented in this encounter Progress Notes * Candis Bee NP - 09/27/2023 7:47 AM CST Please let patient know event monitor was neg. For any arrhythmias. I did consult Dr. Witt, who recommended he still see cardiology for further evaluation. They may want to do a loop recorders, which would monitor his heart for a longer period of time. Order referral under Unspecified atrial fibrillation. Thanks OR CLIP FASTENER * Eric Reed, Account Auditor - 08/14/2023 9:14 AM CDT Day BG sent to patient. Fedex out [id number] Fedex in [id number] 30 days documented in this encounter Plan of Treatment Upcoming Encounters Date Type Department Care Team (Late st Contact Info) Description 01/27/2025 7:00 AM CDT Office Visit [facility] Family & Internal Medicine - [place] [id number] [place] [address] [place] [address] [place] [address] 10/22/2025 9:15 AM PIN OR CLIP FASTENER Office Visit [facility] [address] Mily Gan MD [address] [phone] documented as of this encounter Goals Goal Patient Goal Type Associated Problems Recent Progress Patient-Stated? Author Establish Plan for Symptom Monitoring General No Jesi Cochran RN Monitor - demonstrates appropriate technique of care of indwelling urinary catheter and new ostomy General No Jesi Cochran RN Patient will return to prior living situation and remain independent in ADLs [facility] General No Aliya Stokes RN documented as of this encounter Procedures Procedure Name Priority Date/Time Associated Diagnosis Comments EVENT RECORDER (ECG) UP TO 30 DAYS COMPLETE Routine 09/19/2023 10:22 AM PIN OR CLIP FASTENER Atrial fibrillation, unspecified type ([facility]/HCC) documented in this encounter Results * CLINIC - OUTPATIENT EVENT RECORDER (ECG) UP TO 30 DAYS COMPLETE (Holter) (09/19/2023 10:22 AM PIN OR CLIP FASTENER) Narrative [facility] - 09/19/2023 10:22 AM PIN OR CLIP FASTENER [place], [place] ??[address] Phone: ?? Fax: ?? PRESS OFFICER REPORT PATIENT NAME: ??Natan Patel : ??1955 PCP: ??CANDIS BEE NP INTERPRETING DOOR CAPTAIN: ??Mily Gan MD INDICATION: ??Unspecified atrial fibrillation * The patient was monitored for 29d 03h 46m. Monitoring began on 08/16/2023 and completed on 09/14/2023. During the study, the patient had 26d 22h 43m of ECG collected. There were 3,006,075 classifiable QRS complexes detected. * Maximum heart rate was 130 BPM on 08/21 15:32, Minimum heart rate was 56 BPM on 08/31 04:21, and Average heart rate was 77 BPM. * There were 21,332 Ventricular Ectopic beats with a burden of <1%. * There were 4,466 Supraventricular Ectopic beats with a burden of <1%. * No Atrial Fibrillation was identified for this study. Events include the following: * 3 Ventricular Tachycardia events - the longest episode was 2.7s on 08/19 10:26, and the fastest episode was 181 BPM on 08/19 10:26. * 4 Supraventricular Tachycardia events - the longest episode was 10.3s on 09/05 15:49, and the fastest episode was 163 BPM on 09/05 15:49. * No Atrial Fibrillation. * No Pauses. * No Third Degree AV Block or Second Degree AV Block Type II. * 2 patient triggered events, no symptoms were specified. -one short NSVT noted, asymptomatic. SUMMARY: Normal monitor, no significant arrhythmia burden noted. No symptom rhythm correlation us Candis Bee NP CV VASCULAR ORDERABLES Final R esult [facility] documented in this encounter Visit Diagnoses Diagnosis Atrial fibrillation, unspecified type ([facility]) documented in this encounter Additional Health Concerns Assessment Noted Time PHQ-9 Depression Total Score: 0 01/24/20 23 8:04 AM CDT documented as of this encounter Care Teams Worship Director Relationship Specialty [place] [address] [address], [address] [place] [address] PCP - General Nurse Practitioner Family 02/10/2301/04 documented as of this encounter
--- OUTSIDE RECORDS SUMMARY | 2024-11-02 07:50 | XMS_ITS | Encounter Summary ---
Author Organization [facility] Address [address] [place] [address]. [place], [place] [address] [place] [address] Care Team Providers Care Ambulatory Care Nurse Name Role Phone Shereen Bee NP Primary Care Provider [phone] Reason for Visit * Reason Comments Consult Atrial Fibrillation * Consultation (Routine) - Closed Specialty Diagnoses / Procedures Referred By Contact Referred To Contact CARDIOLOGY / Cardiology Diagnoses Atrial fibrillation, unspecified type ([facility]) Procedures OFFICE/OUTPATIENT NEW LOW MDM 30-44 MINUTES OFFICE/OUTPT VISIT,NEW,LEVL IV OFFICE/OUTPT VISIT,NEW,LEVL V OFFICE/OUTPT VISIT,EST,LEVL III OFFICE/OUTPT VISIT,EST,LEVL IV OFFICE/OUTPT VISIT,[place] [address] [facility], [address] [place] [address] Phone: tel:[phone] fax:[phone] [facility] [address] [address] Phone: tel: fax: Referral ID Status Reason Start Date Expiration Date V isits Requested Visits Authorized [id number] Closed Specialty Services 07/26/2023 08/24/2024 99 99 Encounter Details Date Type Department Care Team (Late st Contact Info) Description 10/11/2023 9:15 AM CAREER MANAGER Office Visit [facility] [address] [phone] Rahul Gan MD [facility] [address] [place] [address] Consult; Atrial Fibrillation Social History Tobacco Use Types Packs/Day Years Used Date Smoking Tobacco: Some Days Cigarettes Cigars Smokeless Tobacco: Never Tobacco Cessation:Ready to Q uit: Not Asked; Counseling Given: Not Answered Comments:Has about 1 a day, a couple [...] on file Legal Sex Male 9:58 PM CAREER MANAGER Gender Identity Not on file Sexual Orientation Not on file documented as of this encounter Last Filed Vital Signs Vital Sign Reading Time Taken Comments Blood Pressure 120/70 10/11/2023 9:03 AM CAREER MANAGER Pulse 67 10/11/2023 9:03 AM CAREER MANAGER Temperature - - Respiratory Rate - - Oxygen Saturation - - Inhaled Oxygen Concentration - - Weight 76.7 kg (169 lb) 10/11/2023 9:03 AM CAREER MANAGER Height 170.2 cm (5' 7 ) 10/11/2023 9:03 AM CAREER MANAGER Body Mass Index 26.47 10/11/2023 9:03 AM CAREER MANAGER documented in this encounter Functional Status * RETIRED Are you deaf or do you have serious difficulty hearing Answer Date of Assessment Author Status No 10/02/2021 12:38 PM CAREER MANAGER Acti ve * RETIRED Are you blind or do you have serious difficulty seeing, even when wearing glasses? Answer Date of Assessment Author Status No 10/02/2021 12:38 PM CAREER MANAGER Acti ve * Do you have serious difficulty walking or climbing stairs? Answer Date of Assessment Author Status No 10/02/2021 12:38 PM Annette Mercer R N Active * Do you have difficulty dressing or bathing? Answer Date of Assessment Author Status No 10/02/2021 12:38 PM CAREER MANAGER Annette Jorge R N Active * [...] documented in this encounter Progress Notes * Erasmo Bansal LPN - 10/11/2023 9:15 AM CSTAddended by: ERASMO BANSAL on: 10/11/2023 09:23 AM Modules accepted: Orders ER MANAGER * Rahul Gan MD - 10/11/2023 9:15 AM CST Reason for Visit: Consult and Atrial Fibrillation History of Present Illness: 68-year-old male with a history of AF around 2020 colon resection due to diverticultis. He has been doing well since that time, last 30 day mcot with no AF. He has had no cardiovascular symptoms. He denies chest pain, shortness of breath, palpitations, syncope or presyncope. He denies PND, orthopnea, LE edema, cough, hemoptysis. Recommendations and Plan: Will follow up in one year. He has no arrhythmia complaints and 30 day mcot with no asymptomatic AF. Continue bbl for rare nonsustained VT. Repeat TTE now that in sinus rhythm. Medications: Current Outpatient Medications: Ascorbic Acid (VITAMIN C) 100 MG tablet, Take 1 tablet (100 mg total) by mouth daily. Indications: Vitamin and/or Mineral Deficiency, Disp: , Rfl: aspirin 81 MG chewable tablet, Chew 1 tablet (81 mg total) by mouth nightly at bedtime. Indications: Anticoagulant Therapy, Disp: , Rfl: atorvastatin (LIPITOR) 40 MG tablet, TAKE 1 TABLET BY MOUTH EVERY NIGHT AT BEDTIME CHANGE FROM PRAVASTATIN DUE TO CHOLESTEROL NOT AT GOAL, Disp: 90 tablet, Rfl: 0 Cholecalciferol (VITAMIN D) 50 MCG (1999 UT) Cap, Take 50 mcg by mouth daily. Indications: Vitamin D Deficiency , Disp: , Rfl: CPAP SUPPLIES, 1 Units by Does not apply route nightly at bedtime. Mask, tubing & filters, Disp: 1 Device, Rfl: 3 metoprolol succinate ER (TOPROL-XL) 25 MG 24 hr tablet, Take 1 tablet (25 mg total) by mouth daily., Disp: 90 tablet, Rfl: 0 Vitamin E 400 units Tab, Take 400 Units by mouth daily. Indications: Nutritional Support, Disp: , Rfl: zinc gluconate 50 MG Tab, Take 1 tablet (50 mg total) by mouth daily. Indications: Nutritional Support, Disp: , Rfl: Allergies Allergen Reactions Morphine Itching Past Medical History: Diagnosis Date Arthritis Cervical stenosis of spine Hyperlipidemia Influenza vaccine administered RANDY (obstructive sleep apnea) Past Surgical History: Procedure Laterality Date COLON SURGERY 03/18/2021 colostomy r/t perferation COLON SURGERY 09/22/2021 COLONOSCOPY N/A 2013 COLONOSCOPY N/A 08/13/2021 colonoscopy via rectum and ostomy with polypectomy and biopsy performed by Federico Mayer MD at [facility] OR COLOSTOMY reversable HERNIA REPAIR Right [facility] HERNIA REPAIR Left [facility] NECK/CHEST PROCEDURE UNLISTED Right [facility], re-built right side of neck. SMALL INTESTINE SURGERY bowel rupture TOTAL KNEE ARTHROPLASTY Bilateral ZANA Partial KR, done @ [facility] Social History Tobacco Use Smoking status: Some Days Packs/day: .25 Types: Cigarettes, Cigars Smokeless tobacco: Never Tobacco comments: Has about 1 a day, a couple puffs. Vaping Use Vaping Use: Never used Substance Use Topics Alcohol use: Yes Alcohol/week: 3.3 standard drinks of alcohol Types: 2 Cans of beer per week Comment: daily Drug use: Never Family History Problem Relation Name Age of Onset Arthritis in Adults Mother Dementia Mother at the end per patient Hypertension Mother Throat cancer Father Heart Disease Father Lung Cancer Brother COPD Brother Cancer Sister Family Status Relation Name Status Mother Father Brother Brother Sister Review of Systems Constitutional: Negative for recent [...] and new or significant memory loss. Vitals: 10/11/23 0903 Patient Position: Sitting BP Location: Left arm Cuff size: Adult Regular BP: 120/70 Pulse: 67 Body mass index is 26.47 kg/m??. Physical Exam Constitutional: Healthy appearance. No distress. HENT: Eyes: Pupils equal, round, and reactive to light. Neck: Normal range of motion. No JVD. No neck adenopathy. No thyromegaly. Pulmonary: Abdomen: Neurological: Alert. Oriented x 3. Appropriate mood and affect. Normal motor skills. Normal gait. Skin: Musculoskeletal: Normal ROM. Cardiovascular: Rate: PMI: Pulses: Heart Sounds: Cardiovascular Comments: Diagnoses/Impression: 1. PAF (paroxysmal atrial fibrillation) ([facility]/HCC) ([facility]/HCC) ELECTROCARDIOGRAM Referring Provider: Shereen Bee NP PCP: SHEREEN BEE NP ER MANAGER documented in this encounter Plan of Treatment Upcoming Encounters Date Type Department Care Team (Late st Contact Info) Description 01/27/2025 7:00 AM CDT Office Visit [facility] Family & Internal Medicine [facility] [address] [place] [phone] [place] [address] [place] [address] 10/22/2025 9:15 AM CAREER MANAGER Office Visit [facility] [address] [place] [address] Rahul Gan MD [facility]. [facility] [address] [place] [address] documented as of this encounter Goals Goal [...] Procedure Name Priority Date/Time Associated Diagnosis Comments ELECTROCARDIOGRAM (NON MIDMARK ACQUIRED) Routine 10/11/2023 9:01 AM CAREER MANAGER PAF (paroxysmal atrial fibrillation) ([facility]) documented in this encounter Results * ELECTROCARDIOGRAM (10/11/2023 9:01 AM CAREER MANAGER) 10/11/2023 9:01 AM CAREER MANAGER Narrative [facility] - 10/11/2023 12:14 PM CAREER MANAGER ? [facility] ? Test Date: ?2023-10-11 Pat Name: ? MANDIE PATEL ? Department: ?? 108 ? Room: ? Gender: ? Male ? Printing Specialist: ?? : ?1955 ? Requested By: RAHUL GAN Order Number: [id number] ?Reading MD: ?? Rahul Gan ? Measurements Intervals ?[place] ? Rate: ? 69 ? P: ?63 MN: ? 177 ?QRS: ?77 QRSD: ? 89 ? T: ?68 QT: ? 390 ? QTc: ?419 ? Interpretive Statements SINUS RHYTHM Compared to ECG dated 09/27/21, findings are similar. ER MANAGER Procedure Note Rahul Gan MD - 10/11/2023 [place] Test Date: 2023-10-11 Pat Name: MANDIE PATEL Department: 108 Room: Gender: Male Printing Specialist: : 1955 Requested By: RAHUL GAN Order Number: [id number] Reading MD: Rahul Gan Measurements Intervals [place] Rate: 69 P: 63 MN: 177 QRS: 77 QRSD: 89 T: 68 QT: 390 QTc: 419 Interpretive Statements SINUS RHYTHM Compared to ECG dated 09/27/21, findings are similar. ER MANAGER us Rahul Gan MD PROCEDURES-ORDERABLE NO CHARGE F inal Result LEISHAPSYCHIATRICRegan Corhythm documented in this encounter Visit Diagnoses Diagnosis PAF (paroxysmal atrial fibrillation) ([facility])- Primary Atrial fibrillation documented in this encounter Additional Health Concerns Assessment Noted Time PHQ-9 Depression Total Score: 0 01/24/20 23 8:04 AM CDT documented as of this encounter Care Teams Ambulatory Care Nurse Relationship Specialty [place] [address] [facility], [address] [place] [address] PCP - General Nurse Practitioner Family 02/10/2301/04 documented as of this encounter
--- OUTSIDE RECORDS SUMMARY | 2024-11-02 07:50 | XMS_ITS | Encounter Summary ---
Author Organization [facility] Address [address] [place] [address]. [place], [place] [address] [place] [address] Care Team Providers Care Electric Installer Name Role Phone Candis Bee NP Primary Care Provider [phone] Reason for Referral * Consultation (Routine) - Closed Specialty Diagnoses / Procedures Referred By Contact Referred To Contact CARDIOLOGY / Cardiology Diagnoses Atrial fibrillation, unspecified type ([facility]) Procedures OFFICE/OUTPATIENT NEW LOW MDM 30-44 MINUTES OFFICE/OUTPT VISIT,NEW,LEVL IV OFFICE/OUTPT VISIT,NEW,LEVL V OFFICE/OUTPT VISIT,EST,LEVL III OFFICE/OUTPT VISIT,EST,LEVL IV OFFICE/OUTPT VISIT,[place] [address] [facility], [address] [place] [address] Phone: tel:[phone] fax:[phone] [place] [address] [facility] [address] Phone: tel: fax: Referral ID Status Reason Start Date Expiration Date V isits Requested Visits Authorized [id number] Closed Specialty Services 09/27/2023 10/26/2024 1 1 N DRIVER SALESPERSON Encounter Details Date Type Department Care Team (Late st Contact Info) Description 09/27/2023 Orders Only [facility] Family & Internal Medicine [facility] [address] [place] [address] Aamir Cruz I, RN Social History Tobacco Use Types Packs/Day Years [...] on file Legal Sex Male 9:58 PM WAGON DRIVER SALESPERSON Gender Identity Not on file Sexual Orientation Not on file documented as of this encounter Functional Status * RETIRED Are you deaf or do you have serious difficulty hearing Answer Date of Assessment Author Status No 10/02/2021 12:38 PM WAGON DRIVER SALESPERSON Acti ve * RETIRED Are you blind or do you have serious difficulty seeing, even when wearing glasses? Answer Date of Assessment Author Status No 10/02/2021 12:38 PM WAGON DRIVER SALESPERSON Acti ve * Do you have serious difficulty walking or climbing stairs? Answer Date of Assessment Author Status No 10/02/2021 12:38 PM WAGON DRIVER SALESPERSON Annette Jorge R N Active * Do you have difficulty dressing or bathing? Answer Date of Assessment Author Status No 10/02/2021 12:38 PM WAGON DRIVER SALESPERSON Annette Jorge R N Active * Because of a physical, mental, or emotional condition, do you have difficulty doing errands alone such as visiting a doctor's office or shopping? Answer Date of Assessment Author Status No 10/02/2021 12:38 PM WAGON DRIVER SALESPERSON Annette Jorge R N Active documented as of this encounter Mental Status * Because of a physical, mental, or emotional condition, do you have serious difficulty concentrating, remembering, or making decisions? Answer Entry Date Author Status No 10/02/2021 12:38 PM WAGON DRIVER SALESPERSON Annette Jorge R N Active documented in this encounter Plan of Treatment Upcoming Encounters Date Type Department Care Team (Late st Contact Info) Description 01/27/2025 7:00 AM CDT Office Visit [facility] Family & Internal Medicine [facility] [address] [place] [address] [place] [address] [place] [address] 10/22/2025 9:15 AM WAGON DRIVER SALESPERSON Office Visit [facility] [address] [address] Mily Gan MD [address] [address] Scheduled Referrals Name Type Priority Associated Diagnoses Orde r Schedule Ambulatory referral to Cardiology, Adult (OTHER) Referral Routine Atrial fibrillation, unspecified type ([facility]) Ordered: 09/27/2023 documented as of this encounter Goals Goal [...] as of this encounter Visit Diagnoses Diagnosis Atrial fibrillation, unspecified type ([facility])- Primary documented in this encounter Additional Health Concerns Assessment Noted Time PHQ-9 Depression Total Score: 0 01/24/20 23 8:04 AM CDT documented as of this encounter Care Teams Electric Installer Relationship Specialty [place] [address] [facility], [address] [place] [address] PCP - General Nurse Practitioner Family 02/10/2301/04 documented as of this encounter
--- OUTSIDE RECORDS SUMMARY | 2024-11-02 07:50 | XMS_ITS | Encounter Summary ---
Author Organization [facility] Address [address] [place] [address]. [place], [place] [address] [place] [address] Care Team Providers Care Cylinder Machine Operator Name Role Phone Candis Bee NP Primary Care Provider [phone] Reason for Referral * (Routine) - Closed Specialty Diagnoses / Procedures Referred By Shelby jama Referred To Contact Diagnoses Neoplasm of uncertain behavior [place] [address] [address], [address] [place] [address] Phone: tel: fax: Referral ID Status Reason Start Date Expiration Date Visits Re quested Visits Authorized [id number] Closed 08/21/2023 08/21/2024 1 1 * (Routine) - Closed Specialty Diagnoses / Procedures Referred By Shelby jama Referred To Contact Diagnoses Neoplasm of uncertain behavior [place] [address] [address], [address] [place] [address] Phone: tel: fax: Referral ID Status Reason Start Date Expiration Date Visits Re quested Visits Authorized [id number] Closed 08/21/2023 08/21/2024 1 1 Reason for Visit * Reason Comments Procedure Shave biopsy x2 Encounter Details Date Type Department Care Team (Late st Contact Info) Description 08/21/2023 8:00 AM CDT Office Visit [facility] Family & Internal Medicine [facility] [address] [place] [address] [place] [address] [facility], [address] [place] [address] Procedure (Shave biopsy x2) Social History Tobacco Use Types Packs/Day Years Used Date Smoking Tobacco: Some Days Cigarettes Cigars Smokeless Tobacco: Never Tobacco Cessation:Ready to Q uit: No; Counseling Given: Yes Comments:Has about 1 a day, a couple [...] on file Legal Sex Male 9:58 PM INSPECTOR ROUGH CASTINGS Gender Identity Not on file Sexual Orientation Not on file documented as of this encounter Last Filed Vital Signs Vital Sign Reading Time Taken Comments Blood Pressure 155/87 08/21/2023 8:10 AM CDT Pulse 76 08/21/2023 8:02 AM CDT Temperature 36.4 ??C (97.5 ??F) 08/21/2023 8:02 AM CD T Respiratory Rate 16 08/21/2023 8:02 AM CDT Oxygen Saturation 98% 08/21/2023 8:02 AM CDT Inhaled Oxygen Concentration - - Weight 78.6 kg (173 lb 3.2 oz) 08/21/2023 8:02 A M CDT Height 170.2 cm (5' 7 ) 08/21/2023 8:02 AM CDT Body Mass Index 27.13 08/21/2023 8:02 AM CDT documented in this encounter Functional Status * RETIRED Are you deaf or do you have serious difficulty hearing Answer Date of Assessment Author Status No 10/02/2021 12:38 PM INSPECTOR ROUGH CASTINGS Acti ve * RETIRED Are you blind or do you have serious difficulty seeing, even when wearing glasses? Answer Date of Assessment Author Status No 10/02/2021 12:38 PM INSPECTOR ROUGH CASTINGS Acti ve * Do you have serious difficulty walking or climbing stairs? Answer Date of Assessment Author Status No 10/02/2021 12:38 PM INSPECTOR ROUGH CASTINGS Annette Jorge R N Active * Do you have difficulty dressing or bathing? Answer Date of Assessment Author Status No 10/02/2021 12:38 PM INSPECTOR ROUGH CASTINGS Annette Jorge R N Active * Because of a physical, mental, or emotional condition, do you have difficulty doing errands alone such as visiting a doctor's office or shopping? Answer Date of Assessment Author Status No 10/02/2021 12:38 PM INSPECTOR ROUGH CASTINGS Annette Jorge R N Active documented as of this encounter Mental Status * Because of a physical, mental, or emotional condition, do you have serious difficulty concentrating, remembering, or making decisions? Answer Entry Date Author Status No 10/02/2021 12:38 PM INSPECTOR ROUGH CASTINGS Annette Jorge R N Active documented in this encounter Progress Notes * Candis Bee NP - 08/21/2023 8:00 AM CDTAssociated Order(s): Lesion Biopsy; Lesion Biopsy Post-Procedure Diagnose(s): Neoplasm of uncertain behavior Reason for Visit: Procedure (Shave biopsy x2) History of Present Illness: Skin lesions-- has lesions to back and chest. Here for shave biopsies. ROS: Review of Systems Constitutional: Negative for chills and fever. Eyes: Negative for blurred vision and double vision. Cardiovascular: Negative for chest pain. Skin: Negative for itching and rash. Neurological: Negative for dizziness and headaches. PHQ-9: 01/23/2023 8:04 AM 07/25/2023 7:42 AM PHQ2/PHQ 9 DEPRESSION SCREEN QUESTIONAIRE Little interest or pleasure in doing things Not at all Not at all Feeling down, depressed, or hopeless Not at all Not at all Patient Health Questionnaire-2 Score 0 0 Trouble falling or staying asleep, or sleeping too much Not at all Feeling tired or having little energy Not at all Poor appetite or overeating Not at all Feeling bad about yourself - or that you are a failure or have let yourself or your family down Notat all Trouble concentrating on things, such as reading the newspaper or watching television Not at all Moving or speaking so slowly that other people could have noticed? Or the opposite - being so fidgety or restless that you have been moving around a lot more than usual. Not at all Thoughts that you would be better off or hurting yourself in some way Not at all Patient Health Questionnaire-9 Score 0 How difficult have these problems made it for you to do your work, take care of things at home, or get along with other people? Not difficult at all Medications: Current Outpatient Medications: Ascorbic Acid (VITAMIN C) 100 MG tablet, Take 1 tablet (100 mg total) by mouth daily. Indications: Vitamin and/or Mineral Deficiency, Disp: , Rfl: aspirin 81 MG chewable tablet, Chew 1 tablet (81 mg total) by mouth nightly at bedtime. Indications: Anticoagulant Therapy, Disp: , Rfl: atorvastatin (LIPITOR) 40 MG tablet, TAKE 1 TABLET NIGHTLY AT BEDTIME. CHANGE FROM PRAVASTATIN DUE TO CHOLESTEROL NOT AT GOAL, Disp: 90 tablet, Rfl: 2 Cholecalciferol (VITAMIN D) 50 MCG (2000 UT) Cap, Take 50 mcg by mouth daily. Indications: Vitamin D Deficiency , Disp: , Rfl: metoprolol succinate ER (TOPROL-XL) 25 MG 24 hr tablet, Take 1 tablet (25 mg total) by mouth daily., Disp: 30 tablet, Rfl: 0 Vitamin E 400 units Tab, Take 400 Units by mouth daily. Indications: Nutritional Support, Disp: , Rfl: zinc gluconate 50 MG Tab, Take 1 tablet (50 mg total) by mouth daily. Indications: Nutritional Support, Disp: , Rfl: CPAP SUPPLIES, 1 Units by Does not apply route nightly at bedtime. Mask, tubing & filters (Patient not taking: Reported on 07/25/2023), Disp: 1 Device, Rfl: 3 Review of patient's allergies indicates: Allergen Reactions Morphine Itching Past Medical History: Diagnosis Date Arthritis Cervical stenosis of spine Hyperlipidemia Influenza vaccine administered RANDY (obstructive sleep apnea) Past Surgical History: Procedure Laterality Date COLON SURGERY 03/18/2021 colostomy r/t perferation COLON SURGERY 09/22/2021 COLONOSCOPY N/A 2013 COLONOSCOPY N/A 08/13/2021 colonoscopy via rectum and ostomy with polypectomy and biopsy performed by Federico Mayer MD at [facility] OR COLOSTOMY reversable HERNIA REPAIR Right [facility] HERNIA REPAIR Left [facility] NECK/CHEST PROCEDURE UNLISTED Right [facility], re-built right side of neck. SMALL INTESTINE SURGERY bowel rupture TOTAL KNEE ARTHROPLASTY Bilateral ZANA Partial KR, done @ [facility] Social History Socioeconomic History Marital status: Social History Narrative LIVE AT HOME WITH Social History Tobacco Use Smoking status: Some Days Packs/day: 0.25 Types: Cigarettes, Cigars Smokeless tobacco: Never Tobacco comments: Has about 1 a day, a couple puffs. Vaping Use Vaping Use: Never used Substance Use Topics Alcohol use: Yes Alcohol/week: 3.3 standard drinks Types: 2 Cans of beer per week Comment: daily Drug use: Never Family History Problem Relation Name Age of Onset Arthritis in Adults Mother Dementia Mother at the end per patient Hypertension Mother Throat cancer Father Heart Disease Father Lung Cancer Brother COPD Brother Cancer Sister Family Status Relation Name Status Mother Father Brother Brother Sister Filed Vitals: 08/21/23 0802 08/21/23 0810 BP: (!) 165/91 (!) 155/87 Pulse: 76 Resp: 16 Temp: 97.5 ??F (36.4 ??C) TempSrc: Temporal SpO2: 98% Weight: 78.6 kg (173 lb 3.2 oz) Height: 1.702 m (5' 7 ) Physical Exam Vitals and nursing note reviewed. Constitutional: Appearance: Normal appearance. HENT: Head: Normocephalic and atraumatic. Neurological: Mental Status: He is alert. Psychiatric: Mood and Affect: Mood normal. Behavior: Behavior normal. Thought Content: Thought content normal. Judgment: Judgment normal. Lesion Biopsy Date/Time: 08/21/2023 8:43 AM Performed by: Candis Bee NP Authorized by: Candis Bee NP Procedure Details - Skin Biopsy: Body area: trunk Trunk location: chest Initial size (mm): 0.5 Final defect size (mm): 0.5 Malignancy: malignancy unknown Destruction method: shave biopsy Comments: Verbal and written consent obtained. 1.5ml of lidocaine with epi. Administered. Sliver nitrate stick used. Patient tolerated well with no complications. Lesion Biopsy Date/Time: 08/21/2023 8:47 AM Performed by: Candis Bee NP Authorized by: Candis Bee NP Procedure Details - Skin Biopsy: Body area: trunk Trunk location: back Initial size (mm): 0.2 Final defect size (mm): 0.2 Malignancy: malignancy unknown Comments: Verbal and written consent obtained. Lesions fell off while cleaning with alcohol pad. Diagnoses/Impression: 1. Primary hypertension metoprolol succinate ER (TOPROL-XL) 25 MG 24 hr tablet DISCONTINUED: metoprolol succinate ER (TOPROL-XL) 25 MG 24 hr tablet 2. Neoplasm of uncertain behavior PATHOLOGY PATHOLOGY TISSUE EXAM BY PATHOLOGIST TISSUE EXAM BY PATHOLOGIST Recommendations and Plan: 1. Primary hypertension Patient reports he did not take his bp med today and needs refills. Asymptomatic. Goal bp is 140/90. Recommend low salt diet. Monitor bp at home and bring readings to next office visit. Continue meds as rx. Med refill sent to pharmacy. F/u as previously scheduled. - metoprolol succinate ER (TOPROL-XL) 25 MG 24 hr tablet; Take 1 tablet (25 mg total) by mouth daily. Dispense: 30 tablet; Refill: 0 2. Neoplasm of uncertain behavior Any redness, swelling, pain, puss like discharge, fevers, or any other worrisome signs of infection, please call office for appt. - PATHOLOGY; Future - PATHOLOGY; Future - TISSUE EXAM BY PATHOLOGIST; Future - TISSUE EXAM BY PATHOLOGIST; Future - TISSUE EXAM BY PATHOLOGIST - TISSUE EXAM BY PATHOLOGIST I personally spent a total of 30 minutes on the day of the encounter. This includes fjus-ch-diir and vit-psou-iy-face time I provided on the day of the encounter & excludes time spent performing separately reportable services. PATO WANG-BC * Candis Bee NP - 08/21/2023 8:00 AM CDT Please let patient know both lesions were seborrheic keratosis, which are benign lesions. No followup needed. Thanks documented in this encounter Plan of Treatment Upcoming Encounters Date Type Department Care Team (Late st Contact Info) Description 01/27/2025 7:00 AM CDT Office Visit [facility] Group Family & Internal Medicine [facility] [address] [place] [address] [place] [address] [place], [place] [id number] 10/22/2025 9:15 AM INSPECTOR ROUGH CASTINGS Office Visit [facility] [address] Mily Gan MD [place] [address] [place] [address] documented as of this encounter [...] Procedure Name Priority Date/Time Associated Diagnosis Comments BIOPSY Routine 08/21/2023 8:47 AM CDT Neoplasm of uncertain behavior BIOPSY Routine 08/21/2023 8:43 AM CDT Neoplasm of uncertain behavior TISSUE EXAM BY PATHOLOGIST Routine 08/21/2023 8:42 AM CDT Neoplasm of uncertain behavior TISSUE EXAM BY PATHOLOGIST Routine 08/21/2023 8:42 AM CDT Neoplasm of uncertain behavior documented in this encounter Results * Lesion Biopsy (08/21/2023 8:47 AM CDT) Narrative Candis Bee NP - 08/21/2023 8:47 AM CDT Candis Bee NP ? 08/21/2023 ??8:50 AM Lesion Biopsy Date/Time: 08/21/2023 8:47 AM Performed by: Candis Bee NP Authorized by: Candis Bee NP Procedure Details - Skin Biopsy: ??Body area: trunk ??Trunk location: back ??Initial size (mm): 0.2 ??Final defect size (mm): 0.2 ??Malignancy: malignancy unknown ?? Comments: Verbal and written consent obtained. Lesions fell off while cleaning with alcohol pad. Candis Bee NP PROCEDURE/MINOR SURGICAL ORDER ZAMZAM Final Result * Lesion Biopsy (08/21/2023 8:43 AM CDT) Candis Fong NP - 08/21/2023 8:43 AM CDT Candis Bee NP ? 08/21/2023 ??8:50 AM Lesion Biopsy Date/Time: 08/21/2023 8:43 AM Performed by: Candis Bee NP Authorized by: Candis Bee NP Procedure Details - Skin Biopsy: ??Body area: trunk ??Trunk location: chest ??Initial size (mm): 0.5 ??Final defect size (mm): 0.5 ??Malignancy: malignancy unknown ?Destruction method: shave biopsy ?? Comments: Verbal and written consent obtained. 1.5ml of lidocaine with epi. Administered. Sliver nitrate stick used. Patient tolerated well with no complications. us Candis Bee NP PROCEDURE/MINOR SURGICAL ORDER ZAMZAM Final Result * TISSUE EXAM BY PATHOLOGIST (08/21/2023 8:42 AM CDT) CLINICAL INFORMATION: None given [facility] PATHOLOGIST (QST PAP) [facility] Comment: Casi Morales MD Board Certified in Anatomic Pathology and Clinical Pathology (electronic signature) SOURCE (QST) Skin, back, biopsy [facility] SPEC DESCRIPTION [facility] Comment: Specimen is received in 10% neutral buffered formalin, labeled with multiple patient identifier(s) and consists of one piece from a skin biopsy measuring 0.3 x 0.2 x 0.1 cm, irregular in shape and warren-arriaza in color. The margins are inked green. The specimen is entirely submitted in one cassette(s). ??Gross exam(s) performed at: [facility] ??[address] [id number] ??Mold Stamper And Repairer: GLADYS TELLEZ MD PRIMARY DIAGNOSIS: [facility] Comment: Small punch biopsy showing predominantly thick keratin and parakeratin (see comment). Comment: [facility] Comment: Additional deeper histologic levels are examined. No epidermis identified. The specimen is too superficial to permit definite diagnosis. Clinical correlation/follow-up is recommended. 08/21/2023 8:42 AM CDT 08/23/2023 12:25 AM CDT Narrative Resulting Agency Comment Performing Organization Information: ?Site ID: [id number] ?Name: [facility] ?Address: [address] [place] [id number] ?Director: Gladys Tellez Candis Bee NP PATHOLOGY/CYTOLOGY ORDERABLES Final Result [facility] [address] [facility] [address] [place] [address], [place] * TISSUE EXAM BY PATHOLOGIST (08/21/2023 8:42 AM CDT) CLINICAL INFORMATION: None given [facility] PATHOLOGIST (QST PAP) [facility] Comment: Casi Morales MD Board Certified in Anatomic Pathology and Clinical Pathology (electronic signature) SOURCE (QST) Skin, chest, biopsy [facility] SPEC DESCRIPTION [facility] Comment: Specimen is received in 10% neutral buffered formalin, labeled with multiple patient identifiers and consists of one piece from a skin biopsy measuring 0.7 x 0.6 x 0.2 cm, irregular in shape and warren-arriaza in color. The margins are inked green, with a pigmented lesion measuring 0.2 x 0.2 cm, warren-brown in color. The specimen is longitudinally bisected and entirely submitted in one cassette(s). ??Gross exam(s) performed at: [facility] ??[address] [id number] ??Mold Stamper And Repairer: GLADYS TELLEZ MD PRIMARY DIAGNOSIS: Inflamed seborrheic keratosis with verrucoid features. [facility] 08/21/2023 8:42 AM CDT 08/23/2023 12:24 AM CDT Narrative Resulting Agency Comment Performing Organization Information: ?Site ID: [id number] ?Name: [facility] ?Address: [address] [place] [id number] ?Director: Gladys Tellez us Candis Bee NP PATHOLOGY/CYTOLOGY ORDERABLES Final Result [facility] - [facility] 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 [facility] [address] [place] [address] PCP - General Nurse Practitioner Family 02/10/2301/04 documented as of this encounter
--- OUTSIDE RECORDS SUMMARY | 2024-11-02 07:50 | XMS_ITS | Encounter Summary ---
Author Organization [facility] Address [address] [place] [address]. [place], [place] [address] [place] [address] Care Team Providers Care Diesel Maintenance Technician Name Role Phone Candis Bee NP Primary Care Provider [phone] Reason for Referral * Imaging (Routine) - Closed Specialty Diagnoses / Procedures Referred By Shelby t Referred To Contact Diagnoses Atrial fibrillation, unspecified type ([facility]) Procedures CLINIC - OUTPATIENT EVENT RECORDER (ECG) UP TO 30 DAYS COMPLETE ([place]) [place] [address] [address], [address] [place] [address] Phone: tel: fax: [facility] [address] [address] Phone: tel: fax: Referral ID Status Reason Start Date Expiration Date Visits Re quested Visits Authorized [id number] Closed 08/08/2023 08/08/2024 1 1 Encounter Details Date Type Department Care Team (Late st Contact Info) Description 08/08/2023 Orders Only [facility], [place] [phone] [place] [address], [address] [place] [address] Social History Tobacco Use Types Packs/Day Years [...] on file Legal Sex Male 9:58 PM RECREATIONAL THERAPIST Gender Identity Not on file Sexual Orientation Not on file documented as of this encounter Functional Status * RETIRED Are you deaf or do you have serious difficulty hearing Answer Date of Assessment Author Status No 10/02/2021 12:38 PM RECREATIONAL THERAPIST Acti ve * RETIRED Are you blind or do you have serious difficulty seeing, even when wearing glasses? Answer Date of Assessment Author Status No 10/02/2021 12:38 PM RECREATIONAL THERAPIST Acti ve * Do you have serious difficulty walking or climbing stairs? Answer Date of Assessment Author Status No 10/02/2021 12:38 PM RECREATIONAL THERAPIST Annette Jorge R N Active * Do you have difficulty dressing or bathing? Answer Date of Assessment Author Status No 10/02/2021 12:38 PM RECREATIONAL THERAPIST Annette Jorge R N Active * Because of a physical, mental, or emotional condition, do you have difficulty doing errands alone such as visiting a doctor's office or shopping? Answer Date of Assessment Author Status No 10/02/2021 12:38 PM RECREATIONAL THERAPIST Annette Jorge R N Active documented as of this encounter Mental Status * Because of a physical, mental, or emotional condition, do you have serious difficulty concentrating, remembering, or making decisions? Answer Entry Date Author Status No 10/02/2021 12:38 PM RECREATIONAL THERAPIST Annette Jorge R N Active documented in this encounter Plan of Treatment Upcoming Encounters Date Type Department Care Team (Late st Contact Info) Description 01/27/2025 7:00 AM CDT Office Visit [facility] Family & Internal Medicine [facility] [address] [place] [address] [place] [address] [place] [address] 10/22/2025 9:15 AM RECREATIONAL THERAPIST Office Visit [facility] [address] Mily Gan MD [facility]. [facility] [address] [place] [address] documented as of this encounter [...] documented as of this encounter Results * CLINIC - OUTPATIENT EVENT RECORDER (ECG) UP TO 30 DAYS COMPLETE ([place]) (09/19/2023 10:22 AM RECREATIONAL THERAPIST) Narrative [facility] - 09/19/2023 10:22 AM RECREATIONAL THERAPIST [place], [place] ??[address] Phone: ?? Fax: ?? COURIER DELIVERY DRIVER REPORT PATIENT NAME: ??Natan Patel : ??1955 PCP: ??CANDIS BEE NP INTERPRETING SKIP PITMAN: ??Mily Gan MD INDICATION: ??Unspecified atrial fibrillation [...] CV VASCULAR ORDERABLES Final R esult [facility] documented in this encounter Visit Diagnoses Diagnosis Atrial fibrillation, unspecified type ([facility])- Primary Atrial fibrillation, unspecified type ([facility]) documented in this encounter Additional Health Concerns Assessment Noted Time PHQ-9 Depression Total Score: 0 01/24/20 23 8:04 AM CDT documented as of this encounter Care Teams Diesel Maintenance Technician Relationship Specialty [place] [address] [facility], [address] [place] [address] PCP - General Nurse Practitioner Family 02/10/2301/04 documented as of this encounter
--- OUTSIDE RECORDS SUMMARY | 2024-11-02 07:50 | XMS_ITS | Encounter Summary ---
Author Organization [facility] Address [address] [place] [address]. [place], [place] [address] [place] [address] Care Team Providers Care Circulation Analyst Name Role Phone Candis Bee NP Primary Care Provider [phone] Ilir Nelson Primary Care Provider [phone] Encounter Details Date Type Department Care Team (Latest Contact Info) Description 08/21/2023 Scan HEALTH INFO SRVCS Scanned, Doc Med [...] on file Legal Sex Male 9:58 PM MANUFACTURING MANAGER Gender Identity Not on file Sexual Orientation Not on file documented as of this encounter Functional Status * RETIRED Are you deaf or do you have serious difficulty hearing Answer Date of Assessment Author Status No 10/02/2021 12:38 PM MANUFACTURING MANAGER Acti ve * RETIRED Are you blind or do you have serious difficulty seeing, even when wearing glasses? Answer Date of Assessment Author Status No 10/02/2021 12:38 PM MANUFACTURING MANAGER Acti ve * Do you have serious difficulty walking or climbing stairs? Answer Date of Assessment Author Status No 10/02/2021 12:38 PM MANUFACTURING MANAGER Annette Jorge R N Active * Do you have difficulty dressing or bathing? Answer Date of Assessment Author Status No 10/02/2021 12:38 PM MANUFACTURING MANAGER Annette Jorge R N Active * Because of a physical, mental, or emotional condition, do you have difficulty doing errands alone such as visiting a doctor's office or shopping? Answer Date of Assessment Author Status No 10/02/2021 12:38 PM MANUFACTURING MANAGER Annette Jorge R N Active documented as of this encounter Mental Status * Because of a physical, mental, or emotional condition, do you have serious difficulty concentrating, remembering, or making decisions? Answer Entry Date Author Status No 10/02/2021 12:38 PM MANUFACTURING MANAGER Annette Jorge R N Active documented in this encounter Plan of Treatment Upcoming Encounters Date Type Department Care Team (Late st Contact Info) Description 01/27/2025 7:00 AM CDT Office Visit [facility] Family & Internal Medicine [facility] [address] [place] [address] [place] [address] [place] [address] 10/22/2025 9:15 AM MANUFACTURING MANAGER Office Visit [facility] [address] Mily Gan MD [address] [address] documented as of this encounter [...] documented as of this encounter Care Teams Circulation Analyst Relationship Specialty [place] [address] [address], [address] [place] [address] PCP - General Nurse Practitioner Family 02/10/2301/04 [place] [address] [place] [address] PCP - General Physician Vmware Engineer Medical 01/06/24 documented as of this encounter
--- OUTSIDE RECORDS SUMMARY | 2024-11-02 07:51 | XMS_ITS | Encounter Summary ---
Author Organization [facility] Address [address] [place] [address]. [place] [address] [place] [address] Care Team Providers Care Ethylene Plant Operator Name Role Phone AkashCandis hedrick BETTY Primary Care Provider [phone] Reason for Visit * Reason Onset Date Comments Consult 08/08/2023 Encounter Details Date Type Department Care Team ([facility] st Contact Info) Description 08/08/[address] [address] Caitlin Giraldo, RMA Consult Social History Tobacco Use Types Packs/Day Years [...] on file Legal Sex Male 9:58 PM COUNTER ROLLER Gender Identity Not on file Sexual Orientation Not on file documented as of this encounter Functional Status * RETIRED Are you deaf or do you have serious difficulty hearing Answer Date of Assessment Author Status No 10/02/2021 12:38 PM COUNTER ROLLER Acti ve * RETIRED Are you blind or do you have serious difficulty seeing, even when wearing glasses? Answer Date of Assessment Author Status No 10/02/2021 12:38 PM COUNTER ROLLER Acti ve * Do you have serious difficulty walking or climbing stairs? Answer Date of Assessment Author Status No 10/02/2021 12:38 PM COUNTER ROLLER Annette Jorge, R N Active * Do you have difficulty dressing or bathing? Answer Date of Assessment Author Status No 10/02/2021 12:38 PM COUNTER ROLLER Annette Jorge, R N Active * Because of a physical, mental, or emotional condition, do you have difficulty doing errands alone such as visiting a doctor's office or shopping? Answer Date of Assessment Author Status No 10/02/2021 12:38 PM COUNTER ROLLER Annette Jorge, R N Active documented as of this encounter Mental Status * Because of a physical, mental, or emotional condition, do you have serious difficulty concentrating, remembering, or making decisions? Answer Entry Date Author Status No 10/02/2021 12:38 PM COUNTER ROLLER Annette Jorge, R N Active documented in this encounter Progress Notes * POLLY Lund - 08/08/2023 11:44 AM CDT [facility] has made several attempts to reach patient to schedule consult per Regan Bee NP with no response. Will send letter for patient to contact our office to schedule. documented in this encounter Plan of Treatment Upcoming Encounters Date Type Department Care Team (Late st Contact Info) Description 01/27/2025 7:00 AM CDT Office Visit [facility] Family & Internal Medicine [facility] [address] [place] [address] [place] Nelson [place] [address] [place] [address] 10/22/2025 9:15 AM COUNTER ROLLER Office Visit [facility] [address] [place] [address] Mily Gan MD [facility] [address] [place] [address] documented as of this encounter Goals Goal [...] documented as of this encounter Care Teams Ethylene Plant Operator Relationship Specialty [place] [address] [address], [address] [place] [address] PCP - General Nurse Practitioner Family 02/10/2301/04 documented as of this encounter
--- OUTSIDE RECORDS SUMMARY | 2024-11-02 07:51 | XMS_ITS | Encounter Summary ---
Author Organization [facility] Address [address] [place] [address]. [place], [place] [address] [place] [address] Care Team Providers Care Senior Process Control Tech Name Role Phone AkashCandis hedrick BETTY Primary Care Provider [phone] Reason for Visit * Reason Onset Date Comments Schedule Test 08/07/2023 Heart monitor Encounter Details Date Type Department Care Team ([facility] Contact Info) Description 08/07/2023 Telephone [facility] [address] [place], [place] [phone] Mily Gan MD [facility]. [facility] [address] [place] [address] Schedule Test (Heart monitor) Social History Tobacco Use Types Packs/Day Years [...] on file Legal Sex Male 9:58 PM LCAC RADAR OPERATOR/NAVIGATOR Gender Identity Not on file Sexual Orientation Not on file documented as of this encounter Functional Status * RETIRED Are you deaf or do you have serious difficulty hearing Answer Date of Assessment Author Status No 10/02/2021 12:38 PM LCAC RADAR OPERATOR/NAVIGATOR Acti ve * RETIRED Are you blind or do you have serious difficulty seeing, even when wearing glasses? Answer Date of Assessment Author Status No 10/02/2021 12:38 PM LCAC RADAR OPERATOR/NAVIGATOR Acti ve * Do you have serious difficulty walking or climbing stairs? Answer Date of Assessment Author Status No 10/02/2021 12:38 PM LCAC RADAR OPERATOR/NAVIGATOR Annette Jorge R N Active * Do you have difficulty dressing or bathing? Answer Date of Assessment Author Status No 10/02/2021 12:38 PM LCAC RADAR OPERATOR/NAVIGATOR Annette Jorge, R N Active * Because of a physical, mental, or emotional condition, do you have difficulty doing errands alone such as visiting a doctor's office or shopping? Answer Date of Assessment Author Status No 10/02/2021 12:38 PM LCAC RADAR OPERATOR/NAVIGATOR Annette Jorge R N Active documented as of this encounter Mental Status * Because of a physical, mental, or emotional condition, do you have serious difficulty concentrating, remembering, or making decisions? Answer Entry Date Author Status No 10/02/2021 12:38 PM LCAC RADAR OPERATOR/NAVIGATOR Annette Jorge, R N Active documented in this encounter Progress Notes * POLLY Lund - 08/07/2023 3:49 PM CDT Received msg from patient asking when we will schedule his monitor. The order was not entered correctly, therefore we were not able to see it on any of the wq's. Called office to see how long monitorneeds to be worn. They will get back with me. documented in this encounter Plan of Treatment Upcoming Encounters Date Type Department Care Team (Late st Contact Info) Description 01/27/2025 7:00 AM CDT Office Visit [facility] Family & Internal Medicine [place] [address] [place] [address] [facility] [place] [address] 10/22/2025 9:15 AM LCAC RADAR OPERATOR/NAVIGATOR Office Visit [facility] [address] Mily Gan MD [facility] [address] [place], [place] [phone] documented as of this encounter Goals Goal [...] documented as of this encounter Care Teams Senior Process Control Tech Relationship Specialty [place] [address] [address], [address] [place], [place] [id number] PCP - General Nurse Practitioner Family 02/10/2301/04 documented as of this encounter
--- OUTSIDE RECORDS SUMMARY | 2024-11-02 07:52 | XMS_ITS | Encounter Summary ---
Author Organization [facility] Address [address] [place] [address]. [place], [place] [address] [place] [address] Care Team Providers Care Manufacturing Production Technician Name Role Phone Candis Bee NP Primary Care Provider [phone] Reason for Visit * Reason Onset Date Comments Other 08/07/2023 Holter monitor Encounter Details Date Type Department Care Team (Late st Contact Info) Description 08/07/2023 Telephone [facility] Family & Internal Medicine [facility] [address] [place] [address] [place] Bee [place] [address] [place] [address] [address] [place] [address] Other (Holter monitor ) Social History Tobacco Use Types Packs/Day Years [...] on file Legal Sex Male 9:58 PM HEALTH POLICY NURSE Gender Identity Not on file Sexual Orientation Not on file documented as of this encounter Functional Status * RETIRED Are you deaf or do you have serious difficulty hearing Answer Date of Assessment Author Status No 10/02/2021 12:38 PM HEALTH POLICY NURSE Acti ve * RETIRED Are you blind or do you have serious difficulty seeing, even when wearing glasses? Answer Date of Assessment Author Status No 10/02/2021 12:38 PM HEALTH POLICY NURSE Acti ve * Do you have serious difficulty walking or climbing stairs? Answer Date of Assessment Author Status No 10/02/2021 12:38 PM HEALTH POLICY NURSE Annette Jorge R N Active * Do you have difficulty dressing or bathing? Answer Date of Assessment Author Status No 10/02/2021 12:38 PM HEALTH POLICY NURSE Annette Jorge R N Active * Because of a physical, mental, or emotional condition, do you have difficulty doing errands alone such as visiting a doctor's office or shopping? Answer Date of Assessment Author Status No 10/02/2021 12:38 PM HEALTH POLICY NURSE Annette Jorge R N Active documented as of this encounter Mental Status * Because of a physical, mental, or emotional condition, do you have serious difficulty concentrating, remembering, or making decisions? Answer Entry Date Author Status No 10/02/2021 12:38 PM HEALTH POLICY NURSE Annette Jorge, R N Active documented in this encounter Progress Notes * Aamir Cruz RN - 08/08/2023 11:54 AM CDT Patient to wear 30 day event monitor per pcp office note. * Marilu Epstein LPN - 08/07/2023 3:28 PM CDT Caitlin messer from [facility] called [facility]ITA How long is pt to wear Holter monitor May call or team answer [phone] documented in this encounter Plan of Treatment Upcoming Encounters Date Type Department Care Team (Late st Contact Info) Description 01/27/2025 7:00 AM CDT Office Visit [facility] Family & Internal Medicine [facility] [address] [place] [address] [place] [address] [place] [address] 10/22/2025 9:15 AM HEALTH POLICY NURSE Office Visit [facility] [address] Mily Gan MD [place] [address] [place] [address] documented as of this encounter [...] documented as of this encounter Care Teams Manufacturing Production Technician Relationship Specialty [place] [address] [facility], [address] [place] [address] PCP - General Nurse Practitioner Family 02/10/2301/04 documented as of this encounter
--- OUTSIDE RECORDS SUMMARY | 2024-11-02 07:52 | XMS_ITS | Encounter Summary ---
Author Organization [facility] Address [address] [place] [address]. [place], [place] [address] [place] [address] Care Team Providers Care Waste Management Engineer Name Role Phone Candis Bee NP Primary Care Provider [phone] Reason for Visit * Reason Onset Date Comments Record Request 08/07/2023 Encounter Details Date Type Department Care Team (Late st Contact Info) Description 08/07/2023 Telephone [facility] Family & Internal Medicine [facility] [address] [place] [address] [place] [address] [facility] [address] [place] [address] Record Request Social History Tobacco Use Types Packs/Day [...] on file Legal Sex Male 9:58 PM TRAFFIC SIGN SUPERVISOR Gender Identity Not on file Sexual Orientation Not on file documented as of this encounter Functional Status * RETIRED Are you deaf or do you have serious difficulty hearing Answer Date of Assessment Author Status No 10/02/2021 12:38 PM TRAFFIC SIGN SUPERVISOR Acti ve * RETIRED Are you blind or do you have serious difficulty seeing, even when wearing glasses? Answer Date of Assessment Author Status No 10/02/2021 12:38 PM TRAFFIC SIGN SUPERVISOR Acti ve * Do you have serious difficulty walking or climbing stairs? Answer Date of Assessment Author Status No 10/02/2021 12:38 PM TRAFFIC SIGN SUPERVISOR Annette Jorge, R N Active * Do you have difficulty dressing or bathing? Answer Date of Assessment Author Status No 10/02/2021 12:38 PM TRAFFIC SIGN SUPERVISOR Anntete Jorge, R N Active * Because of a physical, mental, or emotional condition, do you have difficulty doing errands alone such as visiting a doctor's office or shopping? Answer Date of Assessment Author Status No 10/02/2021 12:38 PM TRAFFIC SIGN SUPERVISOR Annette Jorge, R N Active documented as of this encounter Mental Status * Because of a physical, mental, or emotional condition, do you have serious difficulty concentrating, remembering, or making decisions? Answer Entry Date Author Status No 10/02/2021 12:38 PM TRAFFIC SIGN SUPERVISOR Annette Jorge, R N Active documented in this encounter Progress Notes * Bharti Garsia MA - 08/08/2023 8:53 AM CDT Received and sent to PCP * Bharti Garsia MA - 08/07/2023 1:52 PM CDT I have faxed [facility] for sleep study records documented in this encounter Plan of Treatment Upcoming Encounters Date Type Department Care Team (Late st Contact Info) Description 01/27/2025 7:00 AM CDT Office Visit [facility] Family & Internal Medicine [facility] [address] [place] [address] [place] [address] [place] [address] 10/22/2025 9:15 AM TRAFFIC SIGN SUPERVISOR Office Visit [facility] [address] Mily Gan MD [place] [address] [place], [place] [id number] documented as of this encounter Goals Goal [...] documented as of this encounter Care Teams Waste Management Engineer Relationship Specialty [place] [address] [facility], [address] [place] [address] PCP - General Nurse Practitioner Family 02/10/2301/04 documented as of this encounter
--- OUTSIDE RECORDS SUMMARY | 2024-11-02 07:52 | XMS_ITS | Encounter Summary ---
Author Organization [facility] Address [address] [place] [address]. [place], [place] [address] [place] [address] Care Team Providers Care Occ Therapist Name Role Phone AkashCandis hedrick BETTY Primary Care Provider [phone] Reason for Visit * Reason Onset Date Comments Referral 08/07/2023 Encounter Details Date Type Department Care Team (Late st Contact Info) Description 08/07/2023 Telephone [facility] [address] [place] [address] Cardiology, Physician Referral Social History Tobacco Use Types Packs/Day Years [...] on file Legal Sex Male 9:58 PM SILO WORKER Gender Identity Not on file Sexual Orientation Not on file documented as of this encounter Functional Status * RETIRED Are you deaf or do you have serious difficulty hearing Answer Date of Assessment Author Status No 10/02/2021 12:38 PM SILO WORKER Acti ve * RETIRED Are you blind or do you have serious difficulty seeing, even when wearing glasses? Answer Date of Assessment Author Status No 10/02/2021 12:38 PM SILO WORKER Acti ve * Do you have serious difficulty walking or climbing stairs? Answer Date of Assessment Author Status No 10/02/2021 12:38 PM SILO WORKER Annette Jorge R N Active * Do you have difficulty dressing or bathing? Answer Date of Assessment Author Status No 10/02/2021 12:38 PM SILO WORKER Annette Jorge R N Active * Because of a physical, mental, or emotional condition, do you have difficulty doing errands alone such as visiting a doctor's office or shopping? Answer Date of Assessment Author Status No 10/02/2021 12:38 PM SILO WORKER Annette Jorge R N Active documented as of this encounter Mental Status * Because of a physical, mental, or emotional condition, do you have serious difficulty concentrating, remembering, or making decisions? Answer Entry Date Author Status No 10/02/2021 12:38 PM SILO WORKER Annette Jorge, R N Active documented in this encounter Progress Notes * Cristobal Monaco - 08/07/2023 8:27 AM CDT 2ND referral received, called and spoke w/patient. Still does not want to schedule until, he receives holter monitor. He has not received yet. He will call this week to find out the hold up for receiving it. documented in this encounter Plan of Treatment Upcoming Encounters Date Type Department Care Team (Late st Contact Info) Description 01/27/2025 7:00 AM CDT Office Visit [facility] Family & Internal Medicine - [place] [address] [place] [address] [place] [address] [place], [place] [phone] 10/22/2025 9:15 AM SILO WORKER Office Visit [facility] [address] [place] [address] Mily Gan MD [facility] [address] [place] [address] documented as of this encounter Goals Goal [...] documented as of this encounter Care Teams Occ Therapist Relationship Specialty [place] [address] [address], [address] [place] [address] PCP - General Nurse Practitioner Family 02/10/2301/04 documented as of this encounter
--- OUTSIDE RECORDS SUMMARY | 2024-11-02 07:53 | XMS_ITS | Encounter Summary ---
Author Organization [facility] Address [address] [place] [address]. [place], [place] [address] [place] [address] Care Team Providers Care Tack Picker Name Role Phone AkashCandis hedrick BETTY Primary Care Provider [phone] Reason for Visit * Reason Onset Date Comments Referral 07/28/2023 Encounter Details Date Type Department Care Team (Late st Contact Info) Description 07/28/2023 Telephone [facility] [address] [place] [address] Cardiology, Physician Referral Social History [...] on file Legal Sex Male 9:58 PM HORSE STUD WORKER Gender Identity Not on file Sexual Orientation Not on file documented as of this encounter Functional Status * RETIRED Are you deaf or do you have serious difficulty hearing Answer Date of Assessment Author Status No 10/02/2021 12:38 PM HORSE STUD WORKER Acti ve * RETIRED Are you blind or do you have serious difficulty seeing, even when wearing glasses? Answer Date of Assessment Author Status No 10/02/2021 12:38 PM HORSE STUD WORKER Acti ve * Do you have serious difficulty walking or climbing stairs? Answer Date of Assessment Author Status No 10/02/2021 12:38 PM HORSE STUD WORKER Annette Jorge, R N Active * Do you have difficulty dressing or bathing? Answer Date of Assessment Author Status No 10/02/2021 12:38 PM HORSE STUD WORKER Annette Jorge, R N Active * Because of a physical, mental, or emotional condition, do you have difficulty doing errands alone such as visiting a doctor's office or shopping? Answer Date of Assessment Author Status No 10/02/2021 12:38 PM HORSE STUD WORKER Annette Jorge, R N Active documented as of this encounter Mental Status * Because of a physical, mental, or emotional condition, do you have serious difficulty concentrating, remembering, or making decisions? Answer Entry Date Author Status No 10/02/2021 12:38 PM HORSE STUD WORKER Annette Jorge, R N Active documented in this encounter Progress Notes * Cristobal Monaco - 07/28/2023 9:05 AM CDT Referral received from Candis Bee's office - Spoke w/patient, he states he is supposed to receive a MCOT, he will call back after he receives it and schedule at that time due to not sure of time frame he will have to wear it. documented in this encounter Plan of Treatment Upcoming Encounters Date Type Department Care Team (Late st Contact Info) Description 01/27/2025 7:00 AM CDT Office Visit [facility] Family & Internal Medicine [facility] [address] [place] [address] [place] [address] [place] [address] 10/22/2025 9:15 AM HORSE STUD WORKER Office Visit [facility] [address] [place] [address] Mily Gan MD [facility] [address] [place] [address] documented as of this encounter Goals Goal [...] documented as of this encounter Care Teams Tack Picker Relationship Specialty [place] [address] [address], [address] [place] [address] PCP - General Nurse Practitioner Family 02/10/2301/04 documented as of this encounter
--- OUTSIDE RECORDS SUMMARY | 2024-11-02 07:53 | XMS_ITS | Encounter Summary ---
Author Organization [facility] Address [address] [place] [address]. [place], [place] [address] [place] [address] Care Team Providers Care Buckle Attacher Name Role Phone Candis Bee NP Primary Care Provider [phone] Reason for Visit * Reason Onset Date Comments Question 07/31/2023 Encounter Details Date Type Department Care Team (Late st Contact Info) Description 07/31/[address] [facility] Family & Internal Medicine [facility] [address] [place] [address] [place] [address] [facility] [address] [place] [address] Question Social History Tobacco Use Types Packs/Day [...] on file Legal Sex Male 9:58 PM EVP Gender Identity Not on file Sexual Orientation Not on file documented as of this encounter Functional Status * RETIRED Are you deaf or do you have serious difficulty hearing Answer Date of Assessment Author Status No 10/02/2021 12:38 PM EVP Acti ve * RETIRED Are you blind or do you have serious difficulty seeing, even when wearing glasses? Answer Date of Assessment Author Status No 10/02/2021 12:38 PM EVP Acti ve * Do you have serious difficulty walking or climbing stairs? Answer Date of Assessment Author Status No 10/02/2021 12:38 PM EVP Annette Jorge R N Active * Do you have difficulty dressing or bathing? Answer Date of Assessment Author Status No 10/02/2021 12:38 PM EVP Annette Jorge R N Active * Because of a physical, mental, or emotional condition, do you have difficulty doing errands alone such as visiting a doctor's office or shopping? Answer Date of Assessment Author Status No 10/02/2021 12:38 PM EVP Annette Jorge R N Active documented as of this encounter Mental Status * Because of a physical, mental, or emotional condition, do you have serious difficulty concentrating, remembering, or making decisions? Answer Entry Date Author Status No 10/02/2021 12:38 PM EVP Annette Jorge R N Active documented in this encounter Progress Notes * Aamir Cruz RN - 08/01/2023 9:23 AM CDT Spoke to pt and and provided number to cardiology. Informed them the monitors are typically mailed out to patient and they wear for allotted amount of time and then mail it back. V/u * Summer Gilliland - 07/31/2023 4:04 PM CDT Natan calling states he is getting calls from the salvage repairer to schedule an appointment, they don't want to see him until after his heart monitor information. Don states he has not heard anything about the heart monitor. # [phone] Don. OK to leave a message, does not answer the phone when driving. documented in this encounter Plan of Treatment Upcoming Encounters Date Type Department Care Team (Late st Contact Info) Description 01/27/2025 7:00 AM CDT Office Visit [facility] Family & Internal Medicine [facility] [address] [place] [address] [place] [address] [place] [address] 10/22/2025 9:15 AM EVP Office Visit [facility] [address] [address] Mily Gan MD [address] [address] [place] [address] documented as of this encounter [...] documented as of this encounter Care Teams Buckle Attacher Relationship Specialty [place] [address] [facility], [address] [place] [address] PCP - General Nurse Practitioner Family 02/10/2301/04 documented as of this encounter
--- OUTSIDE RECORDS SUMMARY | 2024-11-02 07:53 | XMS_ITS | Encounter Summary ---
Author Organization [facility] Address [address] [place] [address]. [place], [place] [address] [place] [address] Care Team Providers Care Professor Of Fine Art Name Role Phone Shereen Bee NP Primary Care Provider [phone] Reason for Referral * Imaging (Routine) - Closed Specialty Diagnoses / Procedures Referred By Shelby jama Referred To Contact RADIOLOGY Diagnoses Tobacco abuse Encounter for screening for lung cancer Personal history of nicotine dependence Procedures CT LUNG SCREEN[place] [address] [address], [address] [place] [address] Phone: tel: fax: Referral ID Status Reason Start Date Expiration Date Visits Re quested Visits Authorized [id number] Closed 07/25/2023 07/25/2024 1 1 Reason for Visit * Imaging (Routine) - Closed Specialty Diagnoses / Procedures Referred By Shelby jama Referred To Contact RADIOLOGY Diagnoses Tobacco abuse Encounter for screening for lung cancer Personal history of nicotine dependence Procedures CT LUNG [place] [address] [employer] [address], [address] [place] [address] Phone: tel: fax: Referral ID Status Reason Start Date Expiration Date Visits Re quested Visits Authorized [id number] Closed 07/25/2023 07/25/2024 1 1 Encounter Details Date Type Department Care Team (Latest Contact Info) Description 08/01/2023 10:00 AM CDT - 08/01/2023 11:59 PM CDT Hospital Encounter [facility] [address] [place] [address] [place] [address] [address], [address] [place], [place] [id number] Discharge Disposition: Home or Self Care (Routine [...] on file Legal Sex Male 9:58 PM MACHINE EGG WASHER Gender Identity Not on file Sexual Orientation Not on file documented as of this encounter Functional Status * RETIRED Are you deaf or do you have serious difficulty hearing Answer Date of Assessment Author Status No 10/02/2021 12:38 PM MACHINE EGG WASHER Acti ve * RETIRED Are you blind or do you have serious difficulty seeing, even when wearing glasses? Answer Date of Assessment Author Status No 10/02/2021 12:38 PM MACHINE EGG WASHER Acti ve * Do you have serious difficulty walking or climbing stairs? Answer Date of Assessment Author Status No 10/02/2021 12:38 PM MACHINE EGG WASHER Annette Jorge R N Active * Do you have difficulty dressing or bathing? Answer Date of Assessment Author Status No 10/02/2021 12:38 PM MACHINE EGG WASHER Annette Jorge R N Active * Because [...] MG tabletIndications:M ixed hyperlipidemia TAKE 1 TABLET NIGHTLY AT BEDTIME. CHANGE FROM PRAVASTATIN DUE TO CHOLESTEROL NOT AT GOAL 90 tablet 2 3 09/21/20 23 CPAP SUPPLIESIndications :RANDY on CPAP 1 Units by Does not apply route nightly at bedtime. Mask, tubing & filters 1 Device 3 0 10/09/20 24 metoprolol succinate ER (TOPROL-XL) 25 MG 24 hr tabletIndications:M ixed hyperlipidemia,Prim j luis hypertension Take 1 tablet (25 mg total) by mouth daily. 90 tablet 1 3 08/21/20 23 documented as of this encounter Progress Notes * Shereen Bee NP - 08/01/2023 10:00 AM CDT Please let patient know CT of chest showed a few pulmonary nodules that are small, appear benign. Okay to monitor for now. repeat CT of chest in [address] also showed mild emphysema which is due to his smoking history. Recommend he stop smoking to reduce further damage to his lungs. Please orderPFTs for further evaluation of lung function. thanks documented in this encounter Plan of Treatment Upcoming Encounters Date Type Department Care Team (Late st Contact Info) Description 01/27/2025 7:00 AM CDT Office Visit [facility] Family & Internal Medicine - [place] [address] [place] [address] [place] [address] [place] [address] 10/22/2025 9:15 AM MACHINE EGG WASHER Office Visit [facility] [address] Mliy Gan MD [address] [address] documented as of this encounter [...] Sotelo RN documented as of this encounter Procedures Procedure Name Priority Date/Time Associated Diagnosis Comments CT LUNG SCREENING Routine 08/01/2023 10: 10 AM CDT Tobacco abuse Encounter for screening for lung cancer Personal history of nicotine dependence documented in this encounter Results * CT LUNG SCREENING (08/01/2023 10:10 AM CDT) Anatomical Region Laterality Modality Chest Computed Tomogra phy 08/02/2023 12:3 1 PM CDT Impressions 08/02/2023 12:46 PM CDT Impression:===== LUNG-RADS Category/Recommendation:Category 2. ??Continue annual screening. LUNG-RADS category S: Mild mediastinal adenopathy. ??Follow-up chest CT is recommended in 6 months to ensure stability. Other Incidental Findings: As above. Referred By: SHEREEN BEE Interpreted By: Sterling Patiño MD, 08/02/2023 12:31 PM Narrative 08/02/2023 12:46 PM CDT Examination: Lung Screening Low-Dose Ct Thorax Without Contrast Exam date/time: 08/01/2023 10:05 AM Clinical history: Asymptomatic patient meeting NCCN high-risk criteria for lung screening. * ??68 years * ??Greater than 20 pack years smoking * ??Current smoker of have quit smoking within the last 15 years. Comparison: None Technique: Noncontrast, helical, low-dose CT (LDCT) chest per standard departmental protocol. A dose lowering technique was used for this procedure, which may include, but is not limited to, dose reduction technique, automated exposure control, the use of iterative reconstruction, and ALARA (As Low As Reasonably Achievable) / Image Gently techniques. FINDINGS: Lung Screening Specific (LUNG-RADS): Nodule 1: 4.5 mm, solid nodule, left upper lobe Image slice# ??54 Nodule 2: 2.0 mm, solid nodule, left upper lobe Image slice# ??147 Nodule 3: 3.2 mm, probably nodule, right upper lobe Image slice# ??107 Potentially Significant Incidentals (LUNG-RADS category S): Mild mediastinal adenopathy with borderline enlarged bilateral paratracheal nodes. ??Largest right paratracheal node measures 1.9 x 1.2 cm. Additional Findings: Mild coronary artery calcifications. ??Atherosclerotic aorta. ??Additional scattered vascular calcifications elsewhere. ??Small hiatal hernia. ??Minimal patchy fibrotic changes. ??Mild pleural and parenchymal scarring in the lung apices. ??Mild emphysema with hyperinflation. ??Mild peribronchial thickening diffusely. ??Right lower lobe calcified granuloma. ??Mild diffuse degenerative changes are noted. ??Cervical spine surgical hardware noted. ===== Procedure Note Sterling Patiño MD - 08/02/2023 Examination: Lung Screening Low-Dose Ct Thorax Without Contrast Exam date/time: 08/01/2023 10:05 AM Clinical history: Asymptomatic patient meeting NCCN high-risk criteria forlung screening. * 68 years * Greater than 20 pack years smoking * Current smoker of have quit smoking within the last 15 years. Comparison: None Technique: Noncontrast, helical, low-dose CT (LDCT) chest per standarddepartmental protocol. A dose lowering technique was used for thisprocedure, which may include, but is not limited to, dose reductiontechnique, automated exposure control, the use of iterativereconstruction, and ALARA (As Low As Reasonably Achievable) / Image Gentlytechniques. FINDINGS: Lung Screening Specific (LUNG-RADS): Nodule 1: 4.5 mm, solid nodule, left upper lobe Image slice# 54 Nodule 2: 2.0 mm, solid nodule, left upper lobe Image slice# 147 Nodule 3: 3.2 mm, probably nodule, right upper lobe Image slice# 107 Potentially Significant Incidentals (LUNG-RADS category S): Mildmediastinal adenopathy with borderline enlarged bilateral paratrachealnodes. Largest right paratracheal node measures 1.9 x 1.2 cm. Additional Findings: Mild coronary artery calcifications. Atheroscleroticaorta. Additional scattered vascular calcifications elsewhere. Smallhiatal hernia. Minimal patchy fibrotic changes. Mild pleural andparenchymal scarring in the lung apices. Mild emphysema withhyperinflation. Mild peribronchial thickening diffusely. Right lowerlobe calcified granuloma. Mild diffuse degenerative changes are noted.Cervical spine surgical hardware noted. ===== Impression:===== LUNG-RADS Category/Recommendation:Category 2. Continue annualscreening. LUNG-RADS category S: Mild mediastinal adenopathy. Follow-up chest CT isrecommended in 6 months to ensure stability. Other Incidental Findings: As above. Referred By: SHEREEN BEE Interpreted By: Sterling Patiño MD, 08/02/2023 12:31 PM Shereen Bee COMPRESSOR SERVICE TECHNICIAN CT Final Result documented in this encounter Visit Diagnoses Diagnosis Tobacco abuse Tobacco use disorder Encounter for screening for lung cancer Personal history of nicotine dependence Personal history of tobacco use, presenting hazards to health documented in this encounter Additional Health Concerns Assessment Noted Time PHQ-9 Depression Total Score: 0 01/24/20 8:04 AM CDT documented as of this encounter Care Teams Professor Of Fine Art Relationship Specialty Start Date End Date Shereen Bee, BETTY [address] [address], [address] [place] [address] PCP - General Nurse Practitioner Family 02/10/2301/04 documented as of this encounter
--- OUTSIDE RECORDS SUMMARY | 2024-11-02 07:53 | XMS_ITS | Encounter Summary ---
Author Organization [facility] Address [address] [place] [address]. [place], [place] [address] [place] [address] Care Team Providers Care Petroleum Refinery Worker Name Role Phone AkashCandis hedrick BETTY Primary Care Provider [phone] Encounter Details Date Type Department Care Team (Latest Contact Info) Description 08/01/2023 Travel Social History Tobacco Use Types Packs/Day [...] on file Legal Sex Male 9:58 PM SUPERVISOR CRACK OFF Gender Identity Not on file Sexual Orientation Not on file documented as of this encounter Functional Status * RETIRED Are you deaf or do you have serious difficulty hearing Answer Date of Assessment Author Status No 10/02/2021 12:38 PM SUPERVISOR CRACK OFF Acti ve * RETIRED Are you blind or do you have serious difficulty seeing, even when wearing glasses? Answer Date of Assessment Author Status No 10/02/2021 12:38 PM SUPERVISOR CRACK OFF Acti ve * Do you have serious difficulty walking or climbing stairs? Answer Date of Assessment Author Status No 10/02/2021 12:38 PM SUPERVISOR CRACK OFF Annette Jorge R N Active * Do you have difficulty dressing or bathing? Answer Date of Assessment Author Status No 10/02/2021 12:38 PM SUPERVISOR CRACK OFF Annette Jorge R N Active * Because of a physical, mental, or emotional condition, do you have difficulty doing errands alone such as visiting a doctor's office or shopping? Answer Date of Assessment Author Status No 10/02/2021 12:38 PM SUPERVISOR CRACK OFF Annette Jorge R N Active documented as of this encounter Mental Status * Because of a physical, mental, or emotional condition, do you have serious difficulty concentrating, remembering, or making decisions? Answer Entry Date Author Status No 10/02/2021 12:38 PM SUPERVISOR CRACK OFF Annette Jorge R N Active documented in this encounter Plan of Treatment Upcoming Encounters Date Type Department Care Team (Late st Contact Info) Description 01/27/2025 7:00 AM CDT Office Visit [facility] Family & Internal Medicine [facility] [address] [place] [address] Ilir Nelson PA [address] [place] [phone] 10/22/2025 9:15 AM SUPERVISOR CRACK OFF Office Visit [facility] [address] Mily Gan MD [address] [phone] documented as of this encounter Goals Goal [...] documented as of this encounter Care Teams Petroleum Refinery Worker Relationship Specialty [place] [address] [facility], [address] [place] [address] PCP - General Nurse Practitioner Family 02/10/2301/04 documented as of this encounter
--- OUTSIDE RECORDS SUMMARY | 2024-11-02 07:53 | XMS_ITS | Encounter Summary ---
Author Organization [facility] Address [address] [place] [address]. [place] [address] [place] [address] Care Team Providers Care Pest Control Operator Name Role Phone Candis Bee NP Primary Care Provider [phone] Reason for Referral * Procedure (Routine) - Closed Specialty Diagnoses / Procedures Referred By Contnidhi t Referred To Contact Diagnoses Mild emphysema ([facility]/HCC [facility]) Procedures Complete PFT (pre/post [place], Lung Vol, Diff Capacity) (55212, 13403, 25331, 27528) [place] [address] [address], [address] [place] [address] Phone: tel: fax: Referral ID Status Reason Start Date Expiration Date Visits Re quested Visits Authorized [id number] Closed 08/04/2023 09/03/2024 1 1 Encounter Details Date Type Department Care Team (Late st Contact Info) Description 08/04/2023 Orders Only [facility] Family & Internal Medicine - [address] [address] [place] [address] [address], [address] [place] [address] Social History Tobacco Use Types Packs/Day Years [...] on file Legal Sex Male 9:58 PM GEOSPATIAL SYSTEMS INTEGRATOR Gender Identity Not on file Sexual Orientation Not on file documented as of this encounter Functional Status * RETIRED Are you deaf or do you have serious difficulty hearing Answer Date of Assessment Author Status No 10/02/2021 12:38 PM GEOSPATIAL SYSTEMS INTEGRATOR Acti ve * RETIRED Are you blind or do you have serious difficulty seeing, even when wearing glasses? Answer Date of Assessment Author Status No 10/02/2021 12:38 PM GEOSPATIAL SYSTEMS INTEGRATOR Acti ve * Do you have serious difficulty walking or climbing stairs? Answer Date of Assessment Author Status No 10/02/2021 12:38 PM GEOSPATIAL SYSTEMS INTEGRATOR Annette Jorge R N Active * Do you have difficulty dressing or bathing? Answer Date of Assessment Author Status No 10/02/2021 12:38 PM GEOSPATIAL SYSTEMS INTEGRATOR Annette Jorge R N Active * Because of a physical, mental, or emotional condition, do you have difficulty doing errands alone such as visiting a doctor's office or shopping? Answer Date of Assessment Author Status No 10/02/2021 12:38 PM GEOSPATIAL SYSTEMS INTEGRATOR Annette Jorge R N Active documented as [...] Medical Group Family & Internal Medicine - [place] [address] [place] [address] [place] [address] [place] [address] 10/22/2025 9:15 AM GEOSPATIAL SYSTEMS INTEGRATOR Office Visit [facility] [address] Mily Gan MD [facility]. [address] [place] [address] documented as of this encounter Goals Goal Patient Goal Type Associated Problems Recent Progress Patient-Stated? Author Establish Plan for Symptom Monitoring General Jesi Ye RN Monitor - demonstrates appropriate technique of care of indwelling urinary catheter and new ostomy General Jesi eY RN Patient will return to prior living situation and remain independent in ADLs upon discharge from hospital General No Aliya Stokes RN documented as of this encounter Results * Complete PFT (pre/post [place], Lung Vol, Diff Capacity) (66255, 08405, 66296, 00623) (11/28/2023 10:00 AM GEOSPATIAL SYSTEMS INTEGRATOR) Narrative [facility] - 11/28/2023 10:00 AM GEOSPATIAL SYSTEMS INTEGRATOR Jose Eduardo Headley MD ? 11/28/2023 ??8:45 PM ?? [facility] PULMONARY FUNCTION TEST REPORT Natan Patel INTERPRETATION [...] normal limits, near lower limit of normal. JOSE EDUARDO HEADLEY MD us Candis Bee NP PFT ORDERABLES Final Result [facility] [address] [place] [address], documented in this encounter Visit Diagnoses Diagnosis Mild emphysema (CMS/[facility] HHS/HCC)- Primary Other emphysema Mild emphysema ([facility] HHS/HCC) Other emphysema documented in this encounter Additional Health Concerns Assessment Noted Time PHQ-9 Depression Total Score: 0 01/24/20 23 8:04 AM CDT documented as of this encounter Care Teams Pest Control Operator Relationship Specialty [place] [address] [address], [address] [place], [place] [id number] PCP - General Nurse Practitioner Family 02/10/2301/04 documented as of this encounter
--- OUTSIDE RECORDS SUMMARY | 2024-11-02 07:54 | XMS_ITS | Encounter Summary ---
Author Organization [facility] Address [address] [place] [address]. [place], [place] [address] [place] [address] Care Team Providers Care Seamark Advanced Operator Maintainer Name Role Phone AkashCandis hedrick BETTY Primary Care Provider [phone] Encounter Details Date Type Department Care Team (Latest Contact Info) Description 07/25/2023 Travel Social History Tobacco Use Types Packs/Day [...] on file Legal Sex Male 9:58 PM COMPLIANCE MONITOR Gender Identity Not on file Sexual Orientation Not on file documented as of this encounter Functional Status * RETIRED Are you deaf or do you have serious difficulty hearing Answer Date of Assessment Author Status No 10/02/2021 12:38 PM COMPLIANCE MONITOR Acti ve * RETIRED Are you blind or do you have serious difficulty seeing, even when wearing glasses? Answer Date of Assessment Author Status No 10/02/2021 12:38 PM COMPLIANCE MONITOR Acti ve * Do you have serious difficulty walking or climbing stairs? Answer Date of Assessment Author Status No 10/02/2021 12:38 PM COMPLIANCE MONITOR Annette Jorge R N Active * Do you have difficulty dressing or bathing? Answer Date of Assessment Author Status No 10/02/2021 12:38 PM COMPLIANCE MONITOR Annette Jorge R N Active * Because of a physical, mental, or emotional condition, do you have difficulty doing errands alone such as visiting a doctor's office or shopping? Answer Date of Assessment Author Status No 10/02/2021 12:38 PM COMPLIANCE MONITOR Annette Jorge R N Active documented as of this encounter Mental Status * Because of a physical, mental, or emotional condition, do you have serious difficulty concentrating, remembering, or making decisions? Answer Entry Date Author Status No 10/02/2021 12:38 PM COMPLIANCE MONITOR Annette Jorge R N Active documented in this encounter Plan of Treatment Upcoming Encounters Date Type Department Care Team (Late st Contact Info) Description 01/27/2025 7:00 AM CDT Office Visit [facility] Family & Internal Medicine [facility] [address] [place] [address] Ilir Nelson PA [address] [place] [phone] 10/22/2025 9:15 AM COMPLIANCE MONITOR Office Visit [facility] [address] Mily aGn MD [address] [phone] documented as of this encounter Goals Goal [...] documented as of this encounter Care Teams Seamark Advanced Operator Maintainer Relationship Specialty [place] [address] [facility] [address] [place] [address] PCP - General Nurse Practitioner Family 02/10/2301/04 documented as of this encounter
--- OUTSIDE RECORDS SUMMARY | 2024-11-02 07:54 | XMS_ITS | Encounter Summary ---
Author Organization [facility] Address [address] [place] [address]. [place], [place] [address] [place] [address] Care Team Providers Care Head Waiter/Waitress Banquet Name Role Phone Candis Bee NP Primary Care Provider [phone] Encounter Details Date Type Department Care Team (Latest Contact Info) Description 07/25/2023 12:48 PM CDT - 07/25/2023 11:59 PM CDT Hospital Encounter [facility] [address] [place], [place] [phone] [place] [address] [facility], [address] [place], [place] [phone] Discharge Disposition: Home or Self Care (Routine [...] on file Legal Sex Male 9:58 PM FEATURES EDITOR Gender Identity Not on file Sexual Orientation Not on file documented as of this encounter Functional Status * RETIRED Are you deaf or do you have serious difficulty hearing Answer Date of Assessment Author Status No 10/02/2021 12:38 PM FEATURES EDITOR Acti ve * RETIRED Are you blind or do you have serious difficulty seeing, even when wearing glasses? Answer Date of Assessment Author Status No 10/02/2021 12:38 PM FEATURES EDITOR Acti ve * Do you have serious difficulty walking or climbing stairs? Answer Date of Assessment Author Status No 10/02/2021 12:38 PM FEATURES EDITOR Annette Jorge R N Active * Do you have difficulty dressing or bathing? Answer Date of Assessment Author Status No 10/02/2021 12:38 PM FEATURES EDITOR Annette Jorge R N Active * Because of a physical, mental, or emotional condition, do you have difficulty doing errands alone such as visiting a doctor's office or shopping? Answer Date of Assessment Author Status No 10/02/2021 12:38 PM FEATURES EDITOR Annette Jorge R N Active documented as [...] Progress Notes * Candis Bee NP - 07/25/2023 12:48 PM CDT Psa is normal. Thanks documented in this encounter Plan of Treatment Upcoming Encounters Date Type Department Care Team (Late st Contact Info) Description 01/27/2025 7:00 AM CDT Office Visit [facility] Family & Internal Medicine [facility] [address] [place] [address] [place] [address] [place], [place] [phone] 10/22/2025 9:15 AM FEATURES EDITOR Office Visit [facility] [address] Mily Gan MD [address] [address] documented as of this encounter [...] Associated Diagnosis Comments PROSTATE SPECIFIC ANTIGEN,SCREENING Routine 07/25/2023 8:45 AM CDT Prostate cancer screening documented in this encounter Results * PROSTATE SPECIFIC ANTIGEN,SCREENING (07/25/2023 8:45 AM CDT) PSA 1.11 <4.00 NG/ML 07/25/2023 1:37 PM CDT [facility] Comment: Test was performed using the Siemens method. ??Results obtained with other assay methods or kits cannot be used interchangeably with results obtained by the Siemens method. 07/25/2023 8:45 AM CDT us Candis Bee NP LABORATORY Final Result [facility] [address] [place] [address], documented in this encounter Visit Diagnoses Diagnosis Prostate cancer screening Special screening for malignant neoplasm of prostate documented in this encounter Additional Health Concerns Assessment Noted Time PHQ-9 Depression Total Score: 0 01/24/20 23 8:04 AM CDT documented as of this encounter Care Teams Head Waiter/Waitress Banquet Relationship Specialty [place] [address] [address], [address] [place] [address] PCP - General Nurse Practitioner Family 02/10/2301/04 documented as of this encounter
--- OUTSIDE RECORDS SUMMARY | 2024-11-02 07:54 | XMS_ITS | Encounter Summary ---
Author Organization [facility] Address [address] [place] [address]. [place], [place] [address] [place] [address] Care Team Providers Care Computer Hardware Designer Name Role Phone AkashCandis hedrick BETTY Primary Care Provider [phone] Encounter Details Date Type Department Care Team (Latest Contact Info) Description 07/21/2023 Travel Social History Tobacco Use Types Packs/Day [...] Date Recorded Patient Health Questionnaire-2 Score 0 01/23/2023 Sex and Gender Information Value Date Recorded Sex Assigned at Not on file Legal Sex Male 9:58 PM CONFIGURATION MANAGEMENT ANALYST Gender Identity Not on file Sexual Orientation Not on file documented as of this encounter Functional Status * RETIRED Are you deaf or do you have serious difficulty hearing Answer Date of Assessment Author Status No 10/02/2021 12:38 PM CONFIGURATION MANAGEMENT ANALYST Acti ve * RETIRED Are you blind or do you have serious difficulty seeing, even when wearing glasses? Answer Date of Assessment Author Status No 10/02/2021 12:38 PM CONFIGURATION MANAGEMENT ANALYST Acti ve * Do you have serious difficulty walking or climbing stairs? Answer Date of Assessment Author Status No 10/02/2021 12:38 PM CONFIGURATION MANAGEMENT ANALYST Annette Jorge R N Active * Do you have difficulty dressing or bathing? Answer Date of Assessment Author Status No 10/02/2021 12:38 PM CONFIGURATION MANAGEMENT ANALYST Annette Jorge R N Active * Because of a physical, mental, or emotional condition, do you have difficulty doing errands alone such as visiting a doctor's office or shopping? Answer Date of Assessment Author Status No 10/02/2021 12:38 PM CONFIGURATION MANAGEMENT ANALYST Annette Jorge R N Active documented as of this encounter Mental Status * Because of a physical, mental, or emotional condition, do you have serious difficulty concentrating, remembering, or making decisions? Answer Entry Date Author Status No 10/02/2021 12:38 PM CONFIGURATION MANAGEMENT ANALYST Annette Jorge R N Active documented in this encounter Plan of Treatment Upcoming Encounters Date Type Department Care Team (Late st Contact Info) Description 01/27/2025 7:00 AM CDT Office Visit [facility] Family & Internal Medicine [facility] [address] [place] [address] Ilir [place] PA [address] [place] [phone] 10/22/2025 9:15 AM CONFIGURATION MANAGEMENT ANALYST Office Visit [facility] [address] Mily Gan MD [address] [phone] documented as of this encounter Goals Goal [...] documented as of this encounter Care Teams Computer Hardware Designer Relationship Specialty [place] [address] [facility], [address] [place] [address] PCP - General Nurse Practitioner Family 02/10/2301/04 documented as of this encounter
--- OUTSIDE RECORDS SUMMARY | 2024-11-02 07:54 | XMS_ITS | Encounter Summary ---
Author Organization [facility] Address [address] [place] [address]. [place], [place] [address] [place] [address] Care Team Providers Care Brazer Furnace Name Role Phone Candis Bee NP Primary Care Provider [phone] Encounter Details Date Type Department Care Team (Late st Contact Info) Description 07/25/2023 8:50 AM CDT Laboratory Only [facility] Family & Internal Medicine [facility] [id number] [place] [address] [place] Bee [place] [address] [place] [address] [address] [place] [address] Social History Tobacco Use Types [...] on file Legal Sex Male 9:58 PM LOGISTICS PROJECT MANAGER Gender Identity Not on file Sexual Orientation Not on file documented as of this encounter Functional Status * RETIRED Are you deaf or do you have serious difficulty hearing Answer Date of Assessment Author Status No 10/02/2021 12:38 PM LOGISTICS PROJECT MANAGER Acti ve * RETIRED Are you blind or do you have serious difficulty seeing, even when wearing glasses? Answer Date of Assessment Author Status No 10/02/2021 12:38 PM LOGISTICS PROJECT MANAGER Acti ve * Do you have serious difficulty walking or climbing stairs? Answer Date of Assessment Author Status No 10/02/2021 12:38 PM LOGISTICS PROJECT MANAGER Annette Jorge R N Active * Do you have difficulty dressing or bathing? Answer Date of Assessment Author Status No 10/02/2021 12:38 PM LOGISTICS PROJECT MANAGER Annette Jorge R N Active * Because of a physical, mental, or emotional condition, do you have difficulty doing errands alone such as visiting a doctor's office or shopping? Answer Date of Assessment Author Status No 10/02/2021 12:38 PM LOGISTICS PROJECT MANAGER Annette Jorge R N Active documented [...] 7:00 AM CDT Office Visit [facility] Family & Internal Medicine - [place] [address] [place] [address] [place] [address] [place], [place] [phone] 10/22/2025 9:15 AM LOGISTICS PROJECT MANAGER Office Visit [facility] [address] [place] [address] Mily Gan MD [place] [address] [place] [address] documented as of this encounter Goals Goal [...] Procedure Name Priority Date/Time Associated Diagnosis Comments VENIPUNC ARM DRAW Routine 07/25/2023 8:45 AM CDT Prostate cancer screening documented in this encounter Visit Diagnoses Diagnosis Prostate cancer screening- Primary Special screening for malignant neoplasm of prostate documented in this encounter Additional Health Concerns Assessment Noted Time PHQ-9 Depression Total Score: 0 01/24/20 8:04 AM CDT documented as of this encounter Care Teams Brazer Furnace Relationship Specialty [place] [address] [facility], [address] [place] [address] PCP - General Nurse Practitioner Family 02/10/2301/04 documented as of this encounter
--- OUTSIDE RECORDS SUMMARY | 2024-11-02 07:54 | XMS_ITS | Encounter Summary ---
Author Organization [facility] Address [address] [place] [address]. 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 Answer Date of Assessment Author Status No 10/02/2021 12:38 PM SOFTWARE FIRMWARE ENGINEER Acti ve * Do you have serious difficulty walking or climbing stairs? Answer Date of Assessment Author Status No 10/02/2021 12:38 PM SOFTWARE FIRMWARE ENGINEER Annette Jorge R N Active * Do you have difficulty dressing or bathing? Answer Date of Assessment Author Status No 10/02/2021 12:38 PM SOFTWARE FIRMWARE ENGINEER Annette Jorge R N Active * Because of a physical, mental, or emotional condition, do you have difficulty doing errands alone such as visiting a doctor's office or shopping? Answer Date of Assessment Author Status No 10/02/2021 12:38 PM SOFTWARE FIRMWARE ENGINEER Annette Jorge R N Active documented [...] daily. 90 tablet 1 3 08/21/20 23 vitamin B-12 (CYANOCOBALAMIN) 1000 mcg tablet Take 1 tablet (1,000 mcg total) by mouth daily. 07/25/20 23 documented as of this encounter Plan of Treatment Upcoming Encounters Date Type Department Care Team (Late st Contact Info) Description 01/27/2025 7:00 AM CDT Office Visit [facility] Family & Internal Medicine [facility] [address] [place] [phone] [place] [address] [place] [address] 10/22/2025 9:15 AM SOFTWARE FIRMWARE ENGINEER Office Visit [facility] [address] Mily Gan MD [address] [address] documented as of this encounter Goals Goal [...] Procedure Name Priority Date/Time Associated Diagnosis Comments VITAMIN B12 / FOLATE Routine 07/21/2023 8:26 AM CDT Routine general medical examination at a health care facility Vitamin B deficiency COMPREHENSIVE METABOLIC PANEL Routine 07/21/2023 8:26 AM CDT Primary hypertension LIPID PANEL Routine 07/21/2023 8:26 AM CDT Mixed hyperlipidemia Primary hypertension CBC W/DIFF AUTOMATED Routine 07/21/2023 8:26 AM CDT Routine general medical examination at a health care facility Primary hypertension VITAMIN D, 25 OH Routine 07/21/2023 8:26 AM CDT Vitamin D deficiency documented in this encounter Results * VITAMIN D, 25 OH (07/21/2023 8:26 AM CDT) VITAMIN D 25 HYDROXY S/P/B 51 30 - 100 NG/ML 07/24/2023 6:58 PM CDT [facility] Comment: ? INTERPRETATION ? DEFICIENT ??<20 ? INSUFFICIENT 20-29 ?SUFFICIENT 30-100 07/21/2023 8:26 AM CDT Candis Bee NP LABORATORY Final Result [facility] [address] [place] [address], * (ABNORMAL) VITAMIN B12 / FOLATE (07/21/2023 8:26 AM CDT) VITAMIN B12 S/P/B 1,285(H) 193 - 986 PG/ML 07/21/2023 2:03 PM CDT [facility] FOLATE >20.0 8.6 - 58.9 NG/ML 07/21/2023 2:03 PM CDT [facility] 07/21/2023 8:26 AM CDT Candis Bee NP LABORATORY Final Result [facility] [address] [place] [address], * LIPID PANEL (07/21/2023 8:26 AM CDT) CHOLESTEROL 162 <200.0 MG/DL 07/21/2023 2:03 PM CDT [facility] TRIGLYCERIDES 69 <150 MG/DL 07/21/2023 2:03 PM T [facility] HDL 53 >40.0 MG/DL 07/21/2023 2:03 PM T [facility] LDL (CALCULATED) 95 <100 MG/DL 07/21/20 2:03 PM T [facility] NON HDL CHOLESTEROL 109 <130 MG/DL 07/21 2:03 PM T [facility] CHOL/HDL RATIO 3.1 0.0 - 4.5 07/21/2023 2:03 PM T [facility] VLDL CALCULATION 14 5 - 55 MG/DL 07/21/2023 2:03 PM T [facility] LIPID INTERPRETATION 07/21/2023 2:03 PM T [facility] Comment: NIH CONCENSUS REPORT [...] ?HDL ?<40 ?--- ?LDL ? >=160 ?>=130 07/21/2023 8:26 AM CDT us Candis Bee NP LABORATORY Final Result [facility] [address] [place] [address], * COMPREHENSIVE METABOLIC PANEL (07/21/2023 8:26 AM CDT) GLUCOSE 99 70 - 99 MG/DL 07/21/2023 2:03 PM [facility] BUN 14 7 - 18 MG/DL 07/21/2023 2:03 PM [facility] CREATININE S/P/B 0.82 0.7 - 1.3 MG/DL 07/21/2023 2:03 PM [facility] SODIUM S/P/B 142 136 - 145 MMOL/L 07/21/2023 2:03 PM [facility] POTASSIUM S/P/B 5.1 3.5 - 5.1 MMOL/L 07/21/2023 2:03 PM [facility] CHLORIDE S/P/B 104 100 - 108 MMOL/L 07/21/2023 2:03 PM [facility] CO2 30.5 21 - 32 MMOL/L 07/21/2023 2:03 PM [facility] CALCIUM S/P/B 8.7 8.5 - 10.1 MG/DL 07/21/2023 2:03 PM [facility] BILIRUBIN TOTAL S/P/B 0.9 0.2 - 1.2 MG/DL 07/21/2023 2:03 PM [facility] TOTAL PROTEIN S/P/B 7.5 6.4 - 8.2 G/DL 07/21/2023 2:03 PM [facility] ALBUMIN S/P/B 4.0 3.4 - 5.0 G/DL 07/21/2023 2:03 PM [facility] AST 19 15 - 37 U/L 07/21/2023 2:03 PM [facility] ALT 32 16 - 60 U/L 07/21/2023 2:03 PM [facility] ALKALINE PHOSPHATASE S/P/B 60 50 - 136 U/L 07/21/2023 2:03 PM CDT [facility] ANION GAP 7.5 5 - 15 MMOL/L 07/21/2023 2:03 PM CDT [facility] BUN CREATININE RATIO 17.1 6 - 26 07/21/2023 2:03 PM CDT [facility] A/G RATIO 1.1 1.0 - 2.0 RATIO 07/21/2023 2:03 PM CDT [facility] GFR ESTIMATE >90 >90 ML/MIN/1.7 3 M2 07/21/2023 2:03 PM CDT [facility] Comment: NOTE: eGFR is not calculated for patients <18 years of age. This is an estimated GFR calculation using the new CKD EPI creatinine equation without race and so does not require a correction factor for race. This estimated GFR should not be used for calculating drug doses. 07/21/2023 8:26 AM CDT us Candis Bee NP LABORATORY Final Result [facility] [address] [place] [address], [place] [phone] * (ABNORMAL) CBC W/DIFF AUTOMATED (07/21/2023 8:26 AM CDT) WBC 5.51 4.4 - 11.0 x10'3/uL 07/21/2023 1:05 PM CDT [facility] RBC 4.50 4.50 - 5.90 x10'6/uL 07/21/2023 1:05 PM CDT [facility] HGB 14.5 14.0 - 17.5 G/DL 07/21/2023 1:05 PM CDT [facility] HCT 42.9 41.5 - 50.4 % 07/21/2023 1:05 PM CDT [facility] MCV 95.3 80.0 - 96.0 FL 07/21/2023 1:05 PM T [facility] MCH 32.2(H) 26.5 - 31.4 PG 07/21/2023 1:05 PM [facility] MCHC 33.8 31.9 - 34.8 G/DL 07/21/2023 1:05 PM [facility] RDW 12.9 12.3 - 14.3 % 07/21/2023 1:05 PM [facility] PLT 241 151 - 353 x10'3/uL 07/21/2023 1:05 PM [facility] MPV 11.0 9.7 - 11.9 FL 07/21/2023 1:05 PM [facility] RBC MORPHOLOGY NORMAL 07/21/2023 1:05 PM [facility] PLT MORPH. NORMAL 07/21/2023 1:05 PM [facility] WBC MORPHOLOGY NORMAL 07/21/2023 1:05 PM [facility] LYMPHOCYTES % 33.8 15.8 - 45.0 % 07/21/2023 1:05 PM [facility] NEUTROPHILS % 51.6 42.1 - 71.9 % 07/21/2023 1:05 PM [facility] MONOCYTES % 11.3 5.7 - 12.5 % 07/21/2023 1:05 PM [facility] EOSINOPHILS 2.0 0.0 - 5.6 % 07/21/2023 1:05 PM [facility] BASOPHILS 1.1 0.0 - 1.3 % 07/21/2023 1:05 PM [facility] ABS. NEUTROPHILS 2.85 1.40 - 6.00 x10'3/uL 07/21/2023 1:05 PM CDT [facility] IMMATURE GRANS % 0.2 0.0 - 0.5 % 07/21/2023 1:05 PM CDT [facility] ABS. LYMPHOCYTES 1.86 0.80 - 4.70 x10'3/uL 07/21/2023 1:05 PM CDT [facility] 07/21/2023 8:26 AM CDT us Candis Bee NP LABORATORY Final Result [facility] [address] [place] [address], documented in this encounter Visit Diagnoses Diagnosis Routine general medical examination at a health care facility Primary hypertension Unspecified essential hypertension Mixed hyperlipidemia Vitamin B deficiency Unspecified vitamin B deficiency Vitamin D deficiency Unspecified vitamin D deficiency documented in this encounter Additional Health Concerns Assessment Noted Time PHQ-9 Depression Total Score: 0 01/24/20 23 8:04 AM CDT documented as of this encounter Care Teams Metal Reclamation Kettle Tender Relationship Specialty [place] [address] [address], [address] [place] [address] PCP - General Nurse Practitioner Family 02/10/2301/04 documented as of this encounter
--- OUTSIDE RECORDS SUMMARY | 2024-11-02 07:54 | XMS_ITS | Encounter Summary ---
Author Organization [facility] Address [address] [place] [address]. [place], [place] [address] [place] [address] Care Team Providers Care Chief Growth Officer Name Role Phone Candis Bee NP Primary Care Provider [phone] Reason for Visit * Reason Onset Date Comments Sleep Problem 07/25/2023 Encounter Details Date Type Department Care Team (Late st Contact Info) Description 07/25/2023 Telephone [facility] Family & Internal Medicine [facility] [address] [place] [address] [place] [address] [facility], [address] [place] [address] Sleep Problem Social History Tobacco Use Types Packs/Day [...] on file Legal Sex Male 9:58 PM FUGITIVE DETECTIVE Gender Identity Not on file Sexual Orientation Not on file documented as of this encounter Functional Status * RETIRED Are you deaf or do you have serious difficulty hearing Answer Date of Assessment Author Status No 10/02/2021 12:38 PM FUGITIVE DETECTIVE Acti ve * RETIRED Are you blind or do you have serious difficulty seeing, even when wearing glasses? Answer Date of Assessment Author Status No 10/02/2021 12:38 PM FUGITIVE DETECTIVE Acti ve * Do you have serious difficulty walking or climbing stairs? Answer Date of Assessment Author Status No 10/02/2021 12:38 PM FUGITIVE DETECTIVE Annette Jorge, R N Active * Do you have difficulty dressing or bathing? Answer Date of Assessment Author Status No 10/02/2021 12:38 PM FUGITIVE DETECTIVE Annette Jorge, R N Active * Because of a physical, mental, or emotional condition, do you have difficulty doing errands alone such as visiting a doctor's office or shopping? Answer Date of Assessment Author Status No 10/02/2021 12:38 PM FUGITIVE DETECTIVE Annette Jorge, R N Active documented as of this encounter Mental Status * Because of a physical, mental, or emotional condition, do you have serious difficulty concentrating, remembering, or making decisions? Answer Entry Date Author Status No 10/02/2021 12:38 PM FUGITIVE DETECTIVE Annette Jorge, R N Active documented in this encounter Progress Notes * Rakel Cruz RN - 08/17/2023 12:18 PM CDT Submitted order for Cpap[facility]. * Candis Bee NP - 08/15/2023 4:44 PM CDT Yes. Please order auto cpap with setting of 5-15. Get cpap download in 1 mo. Thanks * Candis Bee NP - 08/10/2023 10:11 AM CDT Reviewed sleep study from 2015. Will be scanned in chart. Is this enough to get him new supplies? Thanks * Aamir Cruz RN - 07/26/2023 10:04 AM CDT Will await records. * Kamini Tovar - 07/25/2023 2:55 PM CDT Patient return regarding his cpap machine is [employer] model Elite airscese 10. * Aamir Cruz RN - 07/25/2023 11:49 AM CDT Patient had last sleep study done at [facility]. States it is probably right at 10 years old. Will likely need new study. Does not know what type of machine he has. States he needs tubing and new face mask. Has full face mask but unknown what size or brand. Sent message to VSW Team. * Candis Bee NP - 07/25/2023 8:30 AM CDT Patient needs new cpap supplies [facility] will no longer take his insurance. Thanks. documented in this encounter Plan of Treatment Upcoming Encounters Date Type Department Care Team (Late st Contact Info) Description 01/27/2025 7:00 AM CDT Office Visit [facility] Family & Internal Medicine [facility] [address] [place] [phone] [place] [phone] [place] [address] 10/22/2025 9:15 AM FUGITIVE DETECTIVE Office Visit [facility] [address] [place] [address] Mily Gan MD [facility] [address] [place] [address] documented as of this encounter Goals Goal [...] documented as of this encounter Care Teams Chief Growth Officer Relationship Specialty [place] [address] [address], [address] [place] [address] PCP - General Nurse Practitioner Family 02/10/2301/04 documented as of this encounter
--- OUTSIDE RECORDS SUMMARY | 2024-11-02 07:54 | XMS_ITS | Encounter Summary ---
Author Organization [facility] Address [address] [place] [address]. 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 Answer Date of Assessment Author Status No 10/02/2021 12:38 PM SENIOR LINUX ADMINISTRATOR Acti ve * Do you have serious difficulty walking or climbing stairs? Answer Date of Assessment Author Status No 10/02/2021 12:38 PM SENIOR LINUX ADMINISTRATOR Annette Jorge R N Active * Do you have difficulty dressing or bathing? Answer Date of Assessment Author Status No 10/02/2021 12:38 PM SENIOR LINUX ADMINISTRATOR Annette Jorge R N Active * Because of a physical, mental, or emotional condition, do you have difficulty doing errands alone such as visiting a doctor's office or shopping? Answer Date of Assessment Author Status No 10/02/2021 12:38 PM SENIOR LINUX ADMINISTRATOR Annette Jorge R N Active documented as [...] Description 01/27/2025 7:00 AM CDT Office Visit [facility] Family & Internal Medicine - [place] [address] [place] [address] [place] [address] [place], [place] [id number] 10/22/2025 9:15 AM SENIOR LINUX ADMINISTRATOR Office Visit [facility] [address] [place] [address] Mily Gan MD [address] [place] [address] documented as of this encounter Goals Goal Patient Goal Type Associated Problems Recent Progress Patient-Stated? Author Establish Plan for Symptom Monitoring General Jesi Ye RN Monitor - demonstrates appropriate technique of care of indwelling urinary catheter and new ostomy General Jesi Ye, RN Patient will return to prior living situation and remain independent in ADLs upon discharge from hospital General Aliya Sotelo RN documented as of this encounter Procedures Procedure Name Priority Date/Time Associated Diagnosis Comments VENIPUNC ARM DRAW Routine 07/21/2023 8:27 AM CDT Vitamin D deficiency Routine [facility] Mixed hyperlipidemia Primary hypertension documented in this encounter Visit Diagnoses Diagnosis Vitamin D deficiency- Primary Unspecified vitamin D deficiency Routine [facility] Mixed hyperlipidemia Primary hypertension Unspecified essential hypertension documented in this encounter Additional Health Concerns Assessment Noted Time PHQ-9 Depression Total Score: 0 01/24/20 8:04 AM CDT documented as of this encounter Care Teams Leather Stamper Relationship Specialty [place] [address] [address], [address] [place] [address] PCP - General Nurse Practitioner Family 02/10/2301/04 documented as of this encounter
--- OUTSIDE RECORDS SUMMARY | 2024-11-02 07:54 | XMS_ITS | Encounter Summary ---
Author Organization [facility] Address [address] [place] [address]. [place], [place] [address] [place] [address] Care Team Providers Care Dry House Tender Name Role Phone Shereen Bee NP Primary Care Provider [phone] Reason for Referral * Consultation (Routine) - Closed Specialty Diagnoses / Procedures Referred By Contact Referred To Contact CARDIOLOGY / Cardiology Diagnoses Atrial fibrillation, unspecified type ([facility]/HCC HHS/[facility]) Procedures OFFICE/OUTPATIENT NEW LOW MDM 30-44 MINUTES OFFICE/OUTPT VISIT,NEW,LEVL IV OFFICE/OUTPT VISIT,NEW,LEVL V OFFICE/OUTPT VISIT,EST,LEVL III OFFICE/OUTPT VISIT,EST,LEVL IV OFFICE/OUTPT [place]ISIT,[place] [address] [address], [address] [place] [address] Phone: tel:[phone] fax:[phone] [place] [address] [facility] [address] Phone: tel: fax: Referral ID Status Reason Start Date Expiration Date V isits Requested Visits Authorized [id number] Closed Specialty Services 07/26/2023 08/24/2024 99 99 * Imaging (Routine) - Closed Specialty Diagnoses / Procedures Referred By Contnidhi t Referred To Contact RADIOLOGY Diagnoses Tobacco abuse Encounter for screening for lung cancer Personal history of nicotine dependence Procedures CT LUNG [place] [address] [address], [address] [place] [address] Phone: tel: fax: Referral ID Status Reason Start Date Expiration Date Visits Re quested Visits Authorized [id number] Closed 07/25/2023 07/25/2024 1 1 Reason for Visit * Reason Comments New Patient Pt here to transfer care. Medication Management Med refills Annual Hypertension Hyperlipidemia Encounter Details Date Type Department Care Team (Latest Contact Info) Description 07/25/2023 8:00 AM CDT Office Visit [facility] Family & Internal Medicine [address] [address] [place] [address] [facility] [address], [address] [address] New Patient (Pt here to transfer care. ); Medication Management (Med refills); Annual; Hypertension; Hyperlipidemia Social History Tobacco Use Types Packs/Day Years Used Date Smoking Tobacco: Some Days Cigarettes Cigars Smokeless Tobacco: Never Tobacco Cessation:Ready to Q uit: Yes; Counseling Given: Yes Comments:Has about 1 a [...] on file Legal Sex Male 9:58 PM KILN FURNITURE SAW TENDER Gender Identity Not on file Sexual Orientation Not on file documented as of this encounter Last Filed Vital Signs Vital Sign Reading Time Taken Comments Blood Pressure 129/85 07/25/2023 7:42 AM CDT Pulse 75 07/25/2023 7:35 AM CDT Temperature 36.3 ??C (97.4 ??F) 07/25/2023 7:35 AM CD T Respiratory Rate 12 07/25/2023 7:35 AM CDT Oxygen Saturation 97% 07/25/2023 7:35 AM CDT Inhaled Oxygen Concentration - - Weight 76.2 kg (168 lb) 07/25/2023 7:35 AM CDT Height 170.2 cm (5' 7 ) 07/25/2023 7:35 AM CDT Body Mass Index 26.31 07/25/2023 7:35 AM CDT documented in this encounter Functional Status * RETIRED Are you deaf or do you have serious difficulty hearing Answer Date of Assessment Author Status No 10/02/2021 12:38 PM KILN FURNITURE SAW TENDER Acti ve * RETIRED Are you blind or do you have serious difficulty seeing, even when wearing glasses? Answer Date of Assessment Author Status No 10/02/2021 12:38 PM KILN FURNITURE SAW TENDER Acti ve * Do you have serious difficulty walking or climbing stairs? Answer Date of Assessment Author Status No 10/02/2021 12:38 PM KILN FURNITURE SAW TENDER Annette Jorge R N Active * Do you have difficulty dressing or bathing? Answer Date of Assessment Author Status No 10/02/2021 12:38 PM KILN FURNITURE SAW TENDER Annette Jorge R N Active * Because of a physical, mental, or emotional condition, do you have difficulty doing errands alone such as visiting a doctor's office or shopping? Answer Date of Assessment Author Status No 10/02/2021 12:38 PM KILN FURNITURE SAW TENDER Annette Jorge R N Active documented as of this encounter Mental Status * Because of a physical, mental, or emotional condition, do you have serious difficulty concentrating, remembering, or making decisions? Answer Entry Date Author Status No 10/02/2021 12:38 PM KILN FURNITURE SAW TENDER Annette Jorge R N Active documented in this encounter Progress Notes * Shereen Bee NP - 07/25/2023 8:00 AM CDT Reason for Visit: New Patient (Pt here to transfer care. ), Medication Management (Med refills), Annual, Hypertension, and Hyperlipidemia History of Present Illness: Transition into care-- tx from Dr. Melo. Annual-- here for annual exam and to [facility]. HTN-- taking med as rx. No concerns. Does not check bp at home. Hyperlipidemia-- taking med as rx. No concerns. Here to review labs. Skin lesions-- has lesion to left cheek, chest, and back that he has had for awhile. No changes that he knows of. RANDY-- needs new cpap supplies. [facility] is no longer taking his insurance. A.fib-- reports hx of a.fib. never saw cardiology. Health maintenance: Colon cancer screenin08/13/21--repeat in 10 years. Exercise: none Diet: balanced Vision: 1 year ago Dental: yearly Lung cancer screening: ordered today PSA: 07/15/22 AAA: 01/15/21 Immunizations: will get covid booster and flu at pharmacy ROS: Review of Systems Constitutional: Negative for fever, malaise/fatigue and weight loss. Respiratory: Negative for cough and shortness of breath. Cardiovascular: Negative for chest pain, palpitations and leg swelling. Gastrointestinal: Negative for abdominal pain, constipation and diarrhea. Musculoskeletal: Negative for joint pain and myalgias. Skin: Negative for itching and rash. Psychiatric/Behavioral: Negative for depression and suicidal ideas. The patient is not nervous/anxious. PHQ-9: 01/23/2023 8:04 AM 07/25/2023 7:42 AM [...] by mouth daily., Disp: 90 tablet, Rfl: 1 Vitamin E 400 units Tab, [...] biopsy performed by Federico Mayer MD at [facility] OR COLOSTOMY reversable HERNIA REPAIR Right [facility] HERNIA REPAIR Left [facility] NECK/CHEST PROCEDURE UNLISTED Right [facility], re-built right side of neck. SMALL INTESTINE SURGERY bowel rupture TOTAL KNEE ARTHROPLASTY Bilateral ZANA Partial KR, done @ [facility] Social History Socioeconomic History Marital status: Tobacco Use Smoking status: Some Days Packs/day: 0.25 Types: Cigarettes, Cigars Smokeless tobacco: Never Tobacco comments: Has about 1 a day, a couple puffs. Vaping Use Vaping Use: Never used Substance and Sexual Activity Alcohol use: Yes Alcohol/week: 3.3 standard drinks Types: 2 Cans of beer per week Comment: daily Drug use: Never Sexual activity: Not Currently Partners: Female Social History Narrative LIVE AT HOME WITH Family History Problem Relation Name Age of Onset Arthritis in Adults Mother Dementia Mother at the end per patient Hypertension Mother Throat cancer Father Heart Disease Father Lung Cancer Brother COPD Brother Cancer Sister Family Status Relation Name Status Mother Father Brother Brother Sister Filed Vitals: 07/25/23 0735 07/25/23 0742 BP: (!) 141/83 129/85 Pulse: 75 Resp: 12 Temp: 97.4 ??F (36.3 ??C) TempSrc: Temporal SpO2: 97% Weight: 76.2 kg (168 lb) Height: 5' 7 (1.702 m) Physical Exam Vitals and nursing note reviewed. Constitutional: Appearance: Normal appearance. HENT: Head: Normocephalic and atraumatic. Eyes: Extraocular Movements: Extraocular movements intact. Conjunctiva/sclera: Conjunctivae normal. Pupils: Pupils are equal, round, and reactive to light. Neck: Thyroid: No thyroid mass or thyromegaly. Vascular: No carotid bruit. Trachea: Trachea normal. Cardiovascular: Rate and Rhythm: Normal rate and regular rhythm. Heart sounds: Normal heart sounds. Pulmonary: Effort: Pulmonary effort is normal. Breath sounds: Normal breath sounds. Abdominal: General: Abdomen is flat. Bowel sounds are normal. Palpations: Abdomen is soft. There is no mass. Tenderness: There is no abdominal tenderness. Musculoskeletal: Cervical back: Neck supple. Right lower leg: No edema. Left lower leg: No edema. Lymphadenopathy: Cervical: No cervical adenopathy. Skin: General: Skin is warm and dry. Comments: Lesion to left cheek has stuck on appearance consistent with SK. Raised, irritated, pea sized lesion noted to chest. [place], raised, pea sized lesion noted to upper back. Neurological: Mental Status: He is alert. Psychiatric: Mood and Affect: Mood normal. Behavior: Behavior normal. Behavior is cooperative. Thought Content: Thought content normal. Judgment: Judgment normal. Results for orders placed or performed during the hospital encounter of 07/25/23 PROSTATE SPECIFIC ANTIGEN,SCREENING Result Value Ref Range PSA 1.11 <4.00 NG/ML Assessment: 1. Annual physical exam 2. Depression screening 3. Mixed hyperlipidemia 4. RANDY on CPAP 5. 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 Tobacco abuse CT LUNG SCREENING CANCELED: CT LUNG SCREENING 8. Encounter for screening for lung cancer CT LUNG SCREENING CANCELED: CT LUNG SCREENING 9. Prostate cancer screening PROSTATE SPECIFIC ANTIGEN,SCREENING 10. Tobacco abuse counseling 11. Personal history of nicotine dependence CT LUNG SCREENING CANCELED: CT LUNG SCREENING 12. Atrial fibrillation, unspecified type (HHS/HCC) ([facility]) Cardiac event monitor Ambulatory referral to Cardiology, [facility]) 13. SK (seborrheic keratosis) 14. Neoplasm of uncertain behavior Plan: 1. Annual physical exam F/u 1 year 2. Depression screening 3. Mixed hyperlipidemia Continue medication as prescribed. F/u in 1 year 4. RANDY on CPAP Will get recent cpap download to review. 5. Primary hypertension Continue medication as prescribed. F/u in 6mo. 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 Patient stopped BPH med and does not wish to restart. 7. Tobacco abuse - CT LUNG SCREENING; Future 8. Encounter for screening for lung cancer - CT LUNG SCREENING; Future 9. Prostate cancer screening - PROSTATE SPECIFIC ANTIGEN,SCREENING; Future 10. Tobacco abuse counseling 11. Personal history of nicotine dependence - CT LUNG SCREENING; Future 12. Atrial fibrillation, unspecified type (HHS/HCC) ([facility]) Reviewed hospital d/c from 10/02/21 where patient was dx with quintinfib RVR and converted back to NSR.It was recommended that patient do 30 day event monitor outpatient, but it was never done. Reviewed echo from 09/27/21 - Cardiac event monitor; Future 13. SK (seborrheic keratosis) Left cheek. Ok to monitor. 14. Neoplasm of uncertain behavior Chest and back. Will schedule shave biopsy. I personally spent a total of 45 minutes on the day of the encounter. This includes ewsv-zt-[id number] and tos-qcnp-xs-face time I provided on the day of the encounter & excludes time spent performing separately reportable services. PATO WANG-BC Cosigned by Ben Diego MD at 07/26/2023 9:22 AM CDT documented in this encounter Plan of Treatment Upcoming Encounters Date Type Department Care Team (Late st Contact Info) Description 01/27/2025 7:00 AM CDT Office Visit [facility] Family & Internal Medicine [facility] [address] [place] [address] [place] [address] [place] [address] 10/22/2025 9:15 AM KILN FURNITURE SAW TENDER Office Visit [facility] [address] Mily Gan MD [address] [address] Scheduled Referrals Name Type Priority Associated Diagnoses Orde r Schedule Ambulatory referral to Cardiology, Adult ([facility]) Referral Routine Atrial fibrillation, unspecified type ([facility]) Ordered: 07/26/2023 documented as of this encounter Goals Goal [...] documented as of this encounter Results * CT LUNG SCREENING [...] By: Sterling Patiño MD, 08/02/2023 12:31 PM us Shereen Bee NP CT Final Result * PROSTATE SPECIFIC ANTIGEN,SCREENING (07/25/2023 8:45 AM CDT) PSA 1.11 <4.00 NG/ML 07/25/2023 1:37 PM CDT [facility] Comment: Test was performed using the Siemens method. ??Results obtained with other assay methods or kits cannot be used interchangeably with results obtained by the Siemens method. 07/25/2023 8:45 AM CDT Shereen Bee NP LABORATORY Final Result [facility] [address] [place] [address], documented in this encounter Visit Diagnoses Diagnosis Annual physical exam- Primary Routine general medical examination at a health care facility Depression screening Screening for depression Mixed hyperlipidemia RANDY on CPAP Obstructive sleep apnea (adult) (pediatric) Primary hypertension Unspecified essential hypertension BPH with obstruction/lower urinary tract symptoms Hypertrophy of prostate with urinary obstruction and other lower urinary tract symptoms (LUTS) Tobacco abuse Tobacco use disorder Encounter for screening for lung cancer Prostate cancer screening Special screening for malignant neoplasm of prostate Tobacco abuse counseling Counseling on substance use and abuse Personal history of nicotine dependence Personal history of tobacco use, presenting hazards to health Atrial fibrillation, unspecified type ([facility]) SK (seborrheic keratosis) Other seborrheic keratosis Neoplasm of uncertain behavior Neoplasm of uncertain behavior, site unspecified Tobacco abuse Tobacco use disorder Encounter for screening for lung cancer Personal history of nicotine dependence Personal history of tobacco use, presenting hazards to health documented in this encounter Additional Health Concerns Assessment Noted Time PHQ-9 Depression Total Score: 0 01/24/20 23 8:04 AM CDT documented as of this encounter Care Teams Dry House Tender Relationship Specialty [place] [address] [address], [address] [place] [address] PCP - General Nurse Practitioner Family 02/10/2301/04 documented as of this encounter
--- OUTSIDE RECORDS SUMMARY | 2024-11-02 07:55 | XMS_ITS | Encounter Summary ---
Author Organization [facility] Address [address] [place] [address]. [place], [place] [address] [place] [address] Care Team Providers Care Wood Getter Name Role Phone Candis Bee NP Primary Care Provider [phone] Ilir Nelson Primary Care Provider Encounter Details Date Type Department Care Team (Latest Contact Info) Description 07/04/2023 Scan HEALTH INFO SRVCS Scanned, Doc Med [...] on file Legal Sex Male 9:58 PM HEAVY EQUIPMENT PLUMBING SUPERVISOR Gender Identity Not on file Sexual Orientation Not on file documented as of this encounter Functional Status * RETIRED Are you deaf or do you have serious difficulty hearing Answer Date of Assessment Author Status No 10/02/2021 12:38 PM HEAVY EQUIPMENT PLUMBING SUPERVISOR Acti ve * RETIRED Are you blind or do you have serious difficulty seeing, even when wearing glasses? Answer Date of Assessment Author Status No 10/02/2021 12:38 PM HEAVY EQUIPMENT PLUMBING SUPERVISOR Acti ve * Do you have serious difficulty walking or climbing stairs? Answer Date of Assessment Author Status No 10/02/2021 12:38 PM HEAVY EQUIPMENT PLUMBING SUPERVISOR Annette Jorge R N Active * Do you have difficulty dressing or bathing? Answer Date of Assessment Author Status No 10/02/2021 12:38 PM HEAVY EQUIPMENT PLUMBING SUPERVISOR Annette Jorge R N Active * Because of a physical, mental, or emotional condition, do you have difficulty doing errands alone such as visiting a doctor's office or shopping? Answer Date of Assessment Author Status No 10/02/2021 12:38 PM HEAVY EQUIPMENT PLUMBING SUPERVISOR Annette Jorge R N Active documented as of this encounter Mental Status * Because of a physical, mental, or emotional condition, do you have serious difficulty concentrating, remembering, or making decisions? Answer Entry Date Author Status No 10/02/2021 12:38 PM HEAVY EQUIPMENT PLUMBING SUPERVISOR Annette Jorge R N Active documented in this encounter Plan of Treatment Upcoming Encounters Date Type Department Care Team (Late st Contact Info) Description 01/27/2025 7:00 AM CDT Office Visit [facility] Family & Internal Medicine [facility] [address] [place] [address] [place] [address] [place] [address] 10/22/2025 9:15 AM HEAVY EQUIPMENT PLUMBING SUPERVISOR Office Visit [facility] [address] Mily Gan MD [address] [address] documented as of this encounter [...] documented as of this encounter Care Teams Wood Getter Relationship Specialty [place] [address] [address], [address] [place] [address] PCP - General Nurse Practitioner Family 02/10/2301/04 [place] [address] [place] [address] PCP - General Physician Theatrical Performer Medical 01/06/24 documented as of this encounter
--- OUTSIDE RECORDS SUMMARY | 2024-11-02 07:55 | XMS_ITS | Encounter Summary ---
Author Organization [facility] Address [address] [place] [address]. [place], [place] [address] [place] [address] Care Team Providers Care Paper Finisher Name Role Phone AkashCandis hedrick BETTY Primary Care Provider [phone] Encounter Details Date Type Department Care Team (Latest Contact Info) Description 04/10/2023 Travel Social History Tobacco Use Types Packs/Day [...] on file Legal Sex Male 9:58 PM QUALITY INSPECTOR Gender Identity Not on file Sexual Orientation Not on file COVID-19 Exposure Response Date Recorded In the last 10 days, have yo u been in contact with someone who was confirmed or suspected to have Coronavirus/COVID-19? No / Unsure 04/10/2023 7:46 AM CDT documented as of this encounter Functional Status * RETIRED Are you deaf or do you have serious difficulty hearing Answer Date of Assessment Author Status No 10/02/2021 12:38 PM QUALITY INSPECTOR Acti ve * RETIRED Are you blind or do you have serious difficulty seeing, even when wearing glasses? Answer Date of Assessment Author Status No 10/02/2021 12:38 PM QUALITY INSPECTOR Acti ve * Do you have serious difficulty walking or climbing stairs? Answer Date of Assessment Author Status No 10/02/2021 12:38 PM QUALITY INSPECTOR Annette Jorge R N Active * Do you have difficulty dressing or bathing? Answer Date of Assessment Author Status No 10/02/2021 12:38 PM QUALITY INSPECTOR Annette Jorge R N Active * Because of a physical, mental, or emotional condition, do you have difficulty doing errands alone such as visiting a doctor's office or shopping? Answer Date of Assessment Author Status No 10/02/2021 12:38 PM QUALITY INSPECTOR Annette Jorge R N Active documented as of this encounter Mental Status * Because of a physical, mental, or emotional condition, do you have serious difficulty concentrating, remembering, or making decisions? Answer Entry Date Author Status No 10/02/2021 12:38 PM QUALITY INSPECTOR Annette Jorge, R N Active documented in this encounter Plan of Treatment Upcoming Encounters Date Type Department Care Team (Late st Contact Info) Description 01/27/2025 7:00 AM CDT Office Visit [facility] Family & Internal Medicine [address] [address] Ilir Nelson PA [address] [place] [id number] 10/22/2025 9:15 AM QUALITY INSPECTOR Office Visit [facility] [address] Mily Gan MD [address] [address] documented as of this encounter Goals Goal [...] documented as of this encounter Care Teams Paper Finisher Relationship Specialty [place] [address] [address], [address] [place] [address] PCP - General Nurse Practitioner Family 02/10/2301/04 documented as of this encounter
--- OUTSIDE RECORDS SUMMARY | 2024-11-02 07:55 | XMS_ITS | Encounter Summary ---
Author Organization [facility] Address [address] [place] [address]. [place], [place] [id number] [place] [id number] Care Team Providers Care Receiving Associate Name Role Phone Cristal Candis HERNÁNDEZ Primary Care Provider [phone] Reason for Visit * Reason Onset Date Comments Pre-visit Gap Closure 04/04/2023 Encounter Details Date Type Department Care Team (Late st Contact Info) Description 04/04/2023 Patient Outreach [facility] Family & Internal Medicine [facility] [id number] [place] [phone] Lindsay Hdez MA Pre-visit Gap Closure Social History Tobacco Use Types Packs/Day Years Used Date Smoking Tobacco: Some Days Cigarettes Cigars Smokeless Tobacco: Never Comments:Has about 1 a day, a couple puffs. Alcohol Use Standard Drinks/Week Comments Yes 3.3 (1 standard drink = 0.6 oz p ure alcohol) daily AUDIT-C Answer Date Recorded Q1: How often do you have a drink containing alc ohol? Monthly or less 01/12/2021 Q2: How many drinks containi ng alcohol do you have on a typical day when you are drinking? 1 or 2 01/12/2021 Frequency of Binge Drinking Not on file 07/2021 PHQ-2 Answer Date Recorded Patient Health Questionnaire-2 Score 0 01/23/2023 Sex and Gender Information Value Date Recorded Sex Assigned at Not on file Legal Sex Male 9:58 PM SETTLEMENT TECHNICIAN Gender Identity Not on file Sexual Orientation Not on file documented as of this encounter Functional Status * RETIRED Are you deaf or do you have serious difficulty hearing Answer Date of Assessment Author Status No 10/02/2021 12:38 PM SETTLEMENT TECHNICIAN Acti ve * RETIRED Are you blind or do you have serious difficulty seeing, even when wearing glasses? Answer Date of Assessment Author Status No 10/02/2021 12:38 PM SETTLEMENT TECHNICIAN Acti ve * Do you have serious difficulty walking or climbing stairs? Answer Date of Assessment Author Status No 10/02/2021 12:38 PM SETTLEMENT TECHNICIAN Annette Jorge R Susan Active * Do you have difficulty dressing or bathing? Answer Date of Assessment Author Status No 10/02/2021 12:38 PM SETTLEMENT TECHNICIAN Annette Jorge R N Active * Because of a physical, mental, or emotional condition, do you have difficulty doing errands alone such as visiting a doctor's office or shopping? Answer Date of Assessment Author Status No 10/02/2021 12:38 PM SETTLEMENT TECHNICIAN Annette Jorge R Susan Active documented as of this encounter Mental Status * Because of a physical, mental, or emotional condition, do you have serious difficulty concentrating, remembering, or making decisions? Answer Entry Date Author Status No 10/02/2021 12:38 PM SETTLEMENT TECHNICIAN Annette Jorge, R N Active documented in this encounter Progress Notes * Lindsay Hdez MA - 04/04/2023 2:47 PM CDT Preventive Screenings: Breast Cancer Screening: N/A Notes: Colorectal Cancer Screening: Up to Date Notes: Diabetic Eye Exam: N/A Notes: Falls Risk Screening: Up to Date Notes: 01/23/2023 Tobacco Cessation: Up to Date Notes: 01/23/2023 Some day Smoker Labs: BMP/CMP: N/A Notes: Hemoglobin A1c: N/A Notes: Lipid: N/A Notes: Urine Albumin-Creatinine Ratio: N/A Notes: Immunizations: Pneumococcal: Up to Date Notes: Shingles: Up to Date Notes: documented in this encounter Plan of Treatment Upcoming Encounters Date Type Department Care Team (Late st Contact Info) Description 01/27/2025 7:00 AM CDT Office Visit [facility] Family & Internal Medicine - [id number] [place] [phone] [place] [address] [place] [address] 10/22/2025 9:15 AM SETTLEMENT TECHNICIAN Office Visit [facility] [phone] Mily Gan MD [id number] [place], [place] [phone] documented as of this encounter Goals Goal [...] documented as of this encounter Care Teams Receiving Associate Relationship Specialty [place] [address] [facility], [address] [place] [address] PCP - General Nurse Practitioner Family 02/10/2301/04 documented as of this encounter
--- OUTSIDE RECORDS SUMMARY | 2024-11-02 07:55 | XMS_ITS | Encounter Summary ---
Author Organization [facility] Address [address] [place] [address]. 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 No / Unsure 04/10/2023 7:46 AM CDT documented as of this encounter Last Filed Vital Signs Vital Sign Reading Time Taken Comments Blood Pressure 126/85 04/10/2023 7:57 AM CDT Pulse 62 04/10/2023 7:57 AM CDT Temperature 36.8 ??C (98.2 ??F) 04/10/2023 7:57 AM CD T Respiratory Rate 16 04/10/2023 7:57 AM CDT Oxygen Saturation 100% 04/10/2023 7:57 AM CDT Inhaled Oxygen Concentration - - Weight 74.8 kg (165 lb) 04/10/2023 7:57 AM CDT Height 170.2 cm (5' 7 ) 04/10/2023 7:57 AM CDT Body Mass Index 25.84 04/10/2023 7:57 AM CDT documented in this encounter Functional Status * RETIRED Are you deaf or do you have serious difficulty hearing Answer Date of Assessment Author Status No 10/02/2021 12:38 PM 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 Answer Date of Assessment Author Status No 10/02/2021 12:38 PM COLORED LIQUID PLASTIC APPLIER Acti ve * Do you have serious difficulty walking or climbing stairs? 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 Answer Date of Assessment Author Status No 10/02/2021 12:38 PM COLORED LIQUID PLASTIC APPLIER Annette Jorge R N Active * Because of a physical, mental, or emotional condition, do you have difficulty doing errands alone such as visiting a doctor's office or shopping? Answer Date of Assessment Author Status No 10/02/2021 12:38 PM COLORED LIQUID PLASTIC APPLIER Annette Jorge R N Active documented as of this encounter Mental Status * Because of a physical, mental, or emotional condition, do you have serious difficulty concentrating, remembering, or making decisions? Answer Entry Date Author Status No 10/02/2021 12:38 PM Annette Mercer R N Active documented in this encounter Patient Instructions * Patient Instructions* Shereen Bee NP - 04/10/2023 8:00 AM CDT Images from the original note were not included. PERSONALIZED PREVENTION PLAN FOR Natan Pavan Patel These are your preventive care screenings with due dates. Health Maintenance Topic Date Due ??? Annual Medicare Wellness Visit Never done ??? COVID-19 Vaccine (5 - Booster for Moderna series) 10/20/2022 ??? DTaP, Tdap and Td Vaccines (2 - Td or Tdap) 01/04/2030 ??? Colorectal Cancer Screening Colonoscopy (10 Years) 08/13/2031 ??? AAA SCREENING Completed ??? Zoster Vaccines Completed ??? Pneumococcal Vaccine: 65+ Years Completed ??? Hepatitis C Completed ??? Meningococcal Vaccine Aged Out Recommended Covered Preventative Services Your PCP and clinical team will review the list below of recommended Medicare Part B Covered Preventative Services and follow up with you on future scheduling of any additional services CARDIOVASCULAR DISEASE (behavioral therapy) Medicare will cover one visit per year with a primary care doctor in a primary care setting (like adoctor's office) to help lower your risk for cardiovascular disease. During this visit, the doctor may discuss aspirin use (if appropriate), check your blood pressure, and give you tips to make sure you eat well. You pay nothing if the doctor or other qualified health care provider accepts assignmen t. CARDIOVASCULAR DISEASE SCREENINGS These screenings include blood tests that help detect conditions that may lead to a heart attack orstroke. Medicare covers these screening tests once every 5 years to test your cholesterol, lipid, lipoprotein, and triglyceride levels. You pay nothing for the tests if the doctor or other qualified health care provider accepts assignment. COLORECTAL CANCER SCREENINGS Medicare covers these screenings to help find precancerous growths or find cancer early, when treatment is most effective. One or more of these tests may be covered: Multi-target stool DNA test: This lab test is generally covered once every 3 years if you meet all of these conditions: Are between ages 50-85. Show no signs or symptoms of colorectal disease including, but not limited to, lower gastrointestinal pain, blood in stool, positive guaiac fecal occult blood test or fecal immunochemical test. At average risk for developing colorectal cancer, meaning: Have no personal history of adenomatous polyps, colorectal cancer, inflammatory bowel disease, including Crohn???s Diseaseand ulcerative colitis. Have no family history of colorectal cancer or adenomatous polyps, familialadenomatous polyposis, or hereditary nonpolyposis colorectal cancer. You pay nothing for the test if the doctor or other qualified health care provider accepts assignment. Screening fecal occult blood test: This test is covered once every 12 months if you???re 50 or older. You pay nothing for the test if the doctor or other qualified health care provider accepts assignment. Screening flexible sigmoidoscopy: This test is generally covered once every 48 months if you???re 50 or older, or 120 months after a previous screening colonoscopy for those not at high risk. You paynothing for the test if the doctor or other qualified health care provider accepts assignment Screening colonoscopy: This test is generally covered once every 120 months (high risk every 24 months) or 48 months after a previous flexible sigmoidoscopy. There???s no minimum age. You pay nothingfor the test if the doctor or other qualified health care provider accepts assignment. Note: If a po lyp or other tissue is found and removed during the colonoscopy, you may have to pay 20% of the Medicare-approved amount for the doctor???s services and a copayment in a hospital outpatient setting. The Part B deductible doesn???t apply. Screening barium enema: This test is generally covered once every 48 months if you???re 50 or older(high risk every 24 months) when used instead of a sigmoidoscopy or colonoscopy. You pay 20% of theMedicare-approved amount for the doctor services. In a hospital outpatient setting, you also pay the hospital a copayment. The Part B deductible doesn???t apply. DEPRESSION SCREENING Medicare covers one depression screening per year. The screening must be done in a primary care setting (like a doctor???s office) that can provide follow-up treatment and referrals. You pay nothing for this screening if the doctor or other qualified health care provider accepts assignment. DIABETES PREVENTION PROGRAM Medicare covers a uzks-fgq-kkimypgw proven health behavior change program to help you prevent type 2 diabetes. The program begins with 16 core sessions offered in a group setting over a 6-month period. In these sessions, you???ll get: Training to make realistic, lasting behavior changes Tips on how to get more exercise Strategies for controlling your weight A behavior college coach, specially trained to help keep you motivated Support from people with similar goals and challenges Once you complete the core sessions, you???ll get: 6 more months of less intensive monthly follow-up sessions to help you maintain healthy habits An additional 12 months of ongoing maintenance sessions if you meet certain weight loss and attendance goals To be eligible, you must have: Medicare Part B A hemoglobin A1c test result between 5.7 and 6.4%, a fasting plasma glucose of 110-125mg/dL, or a 2-hour plasma glucose of 140-199 mg/dL (oral glucose tolerant test) within 12 months of attending thefirst core session A body mass index (BMI) of 25 or more (BMI of 23 or more if you???re ) Never been diagnosed with type 1 or type 2 diabetes or End-Stage Renal Disease (ESRD) Never participated in the Medicare Diabetes Prevention Program You pay nothing for these services if you???re eligible FLU SHOTS Medicare covers one flu shot per flu season. You pay nothing for the flu shot if the doctor or other qualified health care provider accepts assignment for giving the shot. LUNG CANCER SCREENING Medicare covers a lung cancer screening with Low Dose Computed Tomography (LDCT) once per year if you meet all of these conditions: You???re 55-77. You???re asymptomatic (don???t have signs or symptoms of lung cancer). You???re either a current smoker or have quit smoking within the last 15 years. You have a tobacco smoking history of at least 30 ???pack years?? (an average of one pack a day for 30 years). You get a written order from a doctor or other qualified health care provider. You generally pay nothing for this service if the health care provider accepts assignment. Note: Before your first lung cancer screening, you???ll need to schedule an appointment with your doctor to discuss the benefits and risks of lung cancer screening. You and your doctor can decide whether lung cancer screening is right for you. MEDICAL NUTRITION THERAPY SERVICES Medicare may cover medical nutrition therapy and certain related services if you have diabetes or kidney disease, or you???ve had a kidney transplant in the last 36 months, and your doctor or other health care provider refers you for the service. You pay nothing for these services if the doctor or other qualified health care provider accepts assignment PROSTATE CANCER SCREENINGS Medicare covers a Prostate Specific Antigen (PSA) test and a digital rectal exam once every 12 months for men over 50 (beginning the day after your 50th birthday). You pay nothing for the PSA test. For the digital rectal exam, you pay 20% of the Medicare-approved amount, and the Part B deductible applies. In a hospital outpatient setting, you also pay the hospital a copayment. SEXUALLY TRANSMITTED INFECTION (STI) SCREENING AND COUNSELING Medicare covers STI screenings for chlamydia, gonorrhea, syphilis, and Hepatitis B. These screenings are covered if you???re or at increased risk for an STI when the tests are ordered by a primary care provider. Medicare covers these tests once every 12 months or at certain times during . Medicare also covers up to 2 individual, 20-30 minute, wena-tg-qyhi, high- intensity behavioral counseling sessions each year for sexually active adults at increased risk for STIs. Medicare will only cover these counseling sessions if they???re provided by a primary care doctor or other primary carepractitioner and take place in a primary care setting (like a doctor???s office). Counseling conducted in an inpatient setting, like a penitentiary facility, won???t be covered as a preventive service. You pay nothing for these services if the primary care doctor or other qualified health care provider accepts assignment. Based on your responses to the Health Risk Assessment and appointment today, your provider recommends the following: ADVANCE DIRECTIVES The Basics Written by the doctors and editors at [facility] What are advance directives???--??Advance directives are legal [...] proxy (also called the durable power of gauger chief for health care) - The health care [...] process is complete. This topic retrieved from [employer] on: Nov 13, 2018. Topic 82833 Version 11.0 table 1: Resources that can help you make advance directives ?? Address Phone number Website AAR [address] [place], [place] Toll-free: (899) ICG-AAR [ ] http://assets.[facility].org/external_sites/ caregiving/multimedia/EG_AdvanceDirectives.html Aging with Dignity (Five Wishes form) [address] [place] [address] Toll-free: (432) 5WISHES [ ] www.agingwithdignity.org CaringInfo ?? Toll-free: www.caring[employer].org [employer]. [address] [place] [address] [email or web address] [place].org HEALTHY DIET INFORMATION With a heart healthy food plan, you will learn to make better food choices. This diet may help you lower your blood cholesterol level, manage your blood pressure, and lower your risk for heart problems. Smaller portions may also be helpful. Sodium is a type of mineral found in many foods. It helps keep the balance of fluids in your body. Too much sodium can raise your blood pressure. It can also make you take on extra water. This is called edema. Pay careful attention to how much salt or sodium is in your food. You may need to avoid salt or eat foods with less sodium. Cholesterol is a fat-like, waxy substance in your blood. It is normal to have some cholesterol in your blood because your body makes it. You also get extra cholesterol from all animal products. Theseare foods like meats, eggs, and dairy products. Too much cholesterol can block or damage your bloodvessels. This can lead to a heart attack or stroke. Fats in your food have calories which give energy. Not all fats are bad. Some fats are healthy, like the fat found in fish, nuts, and olive oil. These are called unsaturated fats. They help manage body functions and lower cholesterol levels. Learn about the best fats to use in your diet and where to use them. Eating too much fat may make you more likely to weigh more than is healthy. This raises your risk of many heart problems. Fiber is found in plants. Meat and dairy products do not have fiber in them. Fiber can help you lower your unhealthy cholesterol level. You may need more water as you eat more fiber so you do not gethard stools. What lifestyle changes are needed? Eat a healthy diet and workout often. Try to use as many calories as you take in each day. What changes to diet are needed? Eat oily fish at least 2 times a week. These are fish like tuna, salmon, and mackerel. Limit sodium to no more than 2,300 mg of sodium per day. This is about 1 teaspoon (5 grams) of table salt. Use little or no salt when making food. Try other spices or seasoning instead. Limit how much cholesterol you eat to less than 300 mg per day. You can do this by having lean meats. Also eat lots of fruits, vegetables, and fat-free and low- fat dairy products. Limit how much trans fats you eat. Trans fats are found in many processed foods like stick margarine, shortening, and some fried foods. Also, lower how much hydrogenated fats you eat. They are used to make pastries, biscuits, cookies, crackers, chips, and many snack foods. Have no more than 1 drink per day of beer, wine, and mixed drinks (alcohol). Who should use this diet? A heart healthy diet is good for everyone. What foods are good to eat? Grains: Try to eat 6 to 8 servings of whole grain, high fiber foods each day. These are whole grainbread, cereals, brown rice, or pasta. Fruits and vegetables: Eat 4 to 5 servings each day. Try to pick many kinds and colors. Try to eat more that are fresh or frozen. Look for low sodium or salt- free if you choose canned. Rinse canned items before cooking or eating. Dried peas, beans, and lentils are also good. Dairy: Choose low fat (1%) or fat-free milk. Eat nonfat or low-fat products. Protein: Try to eat more low fat or lean meats like chicken and turkey. Eat less red meat and eat more fish, eggs, egg whites, and beans instead. Fats: Use good fats found in fish, nuts, and avocados. Try using olive oil, canola oil, and low-sodium and low-fat salad dressing and mayonnaise. Use corn, safflower, sunflower, and soybean oils. Condiments: Use low-sodium or salt-free broths, soups, soy sauce, and condiments. Pepper, herbs, spices, vinegar, lemon or [place] juices are great for seasoning. Sugar, cocoa powder, honey, syrup, and jams may be eaten in small amounts. Sweets: Low-fat, trans fat-free cookies, cakes, and pies; shlomo crackers; animal crackers; low-fatfig bars; and brandon snaps. What foods should be limited or avoided? Grains: Salted breads, rolls, crackers, quick breads, self-rising flours, biscuit mixes, regular bread crumbs, instant hot cereals, commercially-prepared rice, pasta, stuffing mixes Fruits and vegetables: Commercially-prepared potatoes and vegetable mixes, regular canned vegetables and juices, vegetables frozen with sauce or pickled vegetables, processed fruits with salt or sodium Dairy: Whole milk, malted milk, chocolate milk, buttermilk Protein: Smoked, cured, salted, or canned meat, fish, or poultry such as salas and sausages Fats: Cut back on solid fats like butter, lard, and margarine. Condiments and snacks: Salted and canned peas, beans, and olives; salted snack foods; fried foods; soda, juices, or other sweetened drinks; commercially- softened water. Miso, salsa, ketchup, barbequesauce, Worcestershire sauce, soy sauce, and teriyaki sauce are also high in salt. Sweets: High-fat baked goods such as muffins, donuts, pastries, commercial baked goods Helpful tips When you go to a grocery store, have a list or a meal plan. Do not shop when you are hungry to avoid cravings for foods. You need to know about the sodium and fat content of the food you eat. Read food labels with care. They will show you how much of each is in a serving. This amount is given as a percentage of the total amount you need each day. Reading the labels will help you make healthy food choices. Avoid fast foods. Watch your portions when eating out. Split an order or bring home half for another meal. Talk to a dietitian for help. Where can I learn more? [employer] https://familydoctor.org/sqma-fcg-ljvvlwdb-uot-y-dbqcpnc-heart/ [employer] http://www.heart.org/HEARTORG/HealthyLiving/HealthyEating/Nutrition/Fwnv-sen-Yio estyle-Recommendations_[facility]_305855_Article.jsp#.Wxf_Q6oUmUk EMERGENCY SUPPLIES AND FIRST AID All homes should have the following basic safety tools. First Aid kit Products your family should always have on hand to treat minor emergencies. BAND-AID / Adhesive Bandages - Protects wound from dirt and germs and helps promote fast healing. Provides long-lasting infection protection to help wounds heal fast and may help minimize the appearance of scars. Antiseptic Wash - Temporarily relieves pain and itch while washing away dirt and germs. Cold Pack - For reducing pain and swelling. Sterile Eye Wash - First-aid eye irrigating solution. Thermometer - To check body temperature. Tweezers - For splinter, glass or insect stinger removal. Health Care Gloves - To avoid contact with bodily fluids. Comprehensive First Aid Guide - For information on most minor first-aid situations. Fire Extinguisher Confirm that your fire extinguisher is up to date and not . The extinguisher should be kept in or near the kitchen. Smoke Alarms Smoke alarms are on every level of the home. Smoke alarms are inside and outside sleeping areas. Smoke alarms are tested each month. Smoke alarm batteries are changed as needed. Smoke alarms are less than 10 years old. Carbon Monoxide Alarms Carbon monoxide alarms are located on each level of the home. Confirm Carbon monoxide alarms are less than 7 years old. EXERCISE As an older adult, regular physical activity is one of the most important things you can do for your health. It can prevent many of the health problems that seem to come with age. It also helps your muscles grow stronger so you can keep doing your day-to-day activities without becoming dependent onothers. Not doing any physical activity can be bad for you, no matter your age or health condition. Keep inmind, some physical activity is better than none at all. Your health benefits will also increase with the more physical activity that you do. If you're 65 years of age or older, are generally fit, and have no limiting health conditions you can follow these guidelines. For Important Health Benefits Older Adults Need at Least: 2 hours and 30 minutes ( 150 minutes) of moderate-intensity aerobic activity (i.e., brisk walking) every week and muscle-strengthening activities on 2 or more days a week that work all major muscle groups (legs, hips, back, abdomen, chest, shoulders, and arms). -or- 1 hour and 15 minutes (75 minutes) of vigorous-intensity aerobic activity (i.e., jogging or running) every week and muscle-strengthening activities on 2 or more days a week that work all major musclegroups (legs, hips, back, abdomen, chest, shoulders, and arms). -or- An equivalent mix of moderate- and vigorous-intensity aerobic activity and muscle-strengthening activities on 2 or more days a week that work all major muscle groups (legs, hips, back, abdomen, chest, shoulders, and arms). For Even Greater Health Benefits Older Adults Should Increase Their Activity to: 5 hours (300 minutes) each week of moderate-intensity aerobic activity and muscle-strengthening activities on 2 or more days a week that work all major muscle groups (legs, hips, back, abdomen, chest, shoulders, and arms). -or- 2 hours and 30 minutes (150 minutes) each week of vigorous-intensity aerobic activity and muscle-strengthening activities on 2 or more days a week that work all major muscle groups (legs, hips, back,abdomen, chest, shoulders, and arms). -or- An equivalent mix of moderate- and vigorous-intensity aerobic activity and muscle-strengthening activities on 2 or more days a week that work all major muscle groups (legs, hips, back, abdomen, chest, shoulders, and arms Aerobic activity - what counts? Aerobic activity or cardio gets you breathing harder and your heart beating faster. From pushing a prism inspector, to taking a dance class, to biking to the store - all types of activities count. As long as you're doing them at a moderate or vigorous intensity for at least 10 minutes at a time. Even something as simple as walking is a great way to get the aerobic activity you need, as long as it's at a moderately intense pace. Intensity is how hard your body is working during aerobic activity. How do you know if you're doing moderate or vigorous aerobic activity? On a 10-point scale, where sitting is 0 and working as hard as you can is 10, moderate-intensity aerobic activity is a 5 or 6. It will make you breathe harder and your heart beat faster. You'll also notice that you'll be able to talk, but not sing the words to your favorite song. Vigorous-intensity activity is a 7 or 8 on this scale. Your heart rate will increase quite a bit and you'll be breathing hard enough so that you won't be able to say more than a few words without stopping to catch your breath. You can do moderate- or vigorous-intensity aerobic activity, or a mix of the two each week. Intensity is how hard your body is working during aerobic activity. A rule of thumb is that 1 minute of vigorous-intensity activity is about the same as 2 minutes of moderate-intensity activity. Everyone's fitness level is different. This means that walking may feel like a moderately intense activity to you, but for others, it may feel vigorous. It all depends on you - the shape you're in, what you feel comfortable doing, and your health condition. What's important is that you do physical activities that are right for you and your abilities. Muscle-strengthening activities - what counts? Besides aerobic activity, you need to do things to make your muscles stronger at least 2 days a week. These types of activities will help keep you from losing muscle as you get older. To gain health benefits, muscle-strengthening activities need to be done to the point where it's hard for you to do another repetition without help. A repetition is one complete movement of an activity, like lifting a weight or doing one sit-up. Try to do 8--12 repetitions per activity that count as 1 set. Try to do at least 1 set of muscle-strengthening activities, but to gain even more benefits, do 2 or 3 sets. There are many ways you can strengthen your muscles, whether it's at home or the gym. The activities you choose should work all the major muscle groups of your body (legs, hips, back, chest, abdomen,shoulders, and arms). You may want to try: ???Lifting weights ???Working with resistance bands ???Doing exercises that use your body weight for resistance (push ups, sit ups) ???Heavy gardening (digging, shoveling) ???Yoga Reference: http://www.cdc.gov/physicalactivity/everyone/guidelines/olderadults.html FALL RISK Guidelines to help you prevent [...] slipping hazards like wet ground or pavement. HEARING LOSS IN ADULTS About this topic Hearing loss happens when there is a problem with one or more parts of the ears. You may not be able to hear at all or you may be able to hear some sounds. Hearing loss is common and can b e short-term. Sometimes, it improves and other times it will not. You may be able to hear in one ear and not the other. You may have been able to hear well in your life and it has gotten worse as you have gotten older. Your ear is made of 3 parts and they all are needed for good hearing. The outer part of your ear picks up sound waves and moves them through the ear canal. Your middle ear starts with the eardrum. Itvibrates when the sound waves hit it. The eardrum moves 3 tiny bones in your middle ear. They move the sound vibrations into your inner ear. The inner ear has a small liquid-filled part that is lined with tiny hairs. It is the cochlea. The vibrations make the hairs move. This sends information to the nerves and finally your brain hears the sounds. You may have hearing loss if any of the parts of your ear are damaged. There are a few types of hearing loss: Conductive hearing loss - Due to problems with the ear canal, eardrum, or middle ear and its littlebones Sensorineural hearing loss (SNHL) - Due to problems with the inner ear Mixed hearing loss - A combination of both types. It can involve all parts of the ear. What are the causes? Flying in an airplane or going to a higher elevation like up a mountain. This is caused by pressurechanges. Wax build up in the ear An ear infection Listening to loud noises over a long period of time An accident where the ear is involved such as a car accident, fight, or bullet or knife wound A tumor growing in the ear Getting older. By 75 years of age, about 1 in every 2 people have some degree of hearing loss. Drugs like some antibiotics or chemo What can make this more likely to happen? Having ear infections often can make hearing loss more likely. Being around loud noises, especiallyfor a long time, can raise your chance of having hearing loss. Fluid in the middle ear or a hole inthe eardrum may cause hearing loss. Certain drugs may harm the ear. What are the main signs? Not being able to hear clearly. Some sounds do not sound as clear as they used to. Sounds may be muffled or dull Fluid or drainage that is clear or colored coming out of your ear Feeling as though there is a fullness in your ear Pain or ringing in the ears Trouble with balance or walking How does the doctor diagnose this health problem? Your doctor will take your history and do an exam. The doctor will look inside of your ears to check for fluid or ear infections. The doctor may use a special tool that vibrates to see if you are able to hear the vibrations in your ear. Your doctor may also order special hearing tests to learn more about your hearing loss. Pure tone testing - You wear earphones and a sound is made in one ear at a time. Different tones will help the doctor to understand what kinds of sounds you are able to hear and the type of hearing loss you have. Speech testing - Records the faintest speech you are able to hear. You will be asked to repeat backwords or listen carefully for words in a quiet or noisy setting. Middle ear testing - Measures how well the eardrum moves back and forth. How does the doctor treat this health problem? Treatment is based on the type of hearing loss that you have. The goals of treatment are to stop any more hearing loss, improve hearing, and to help communication. Doctors may do this by giving you drugs to fight an infection or by simply cleaning your outer ear. Sometimes, your hearing will not improve. You may need a tool to help you hear better. The doctor may suggest: Hearing aids - Use microphones to rock picker sounds and tiny speakers to send louder signals into the ear Cochlear implant - Bypasses the harmed hair cells in the cochlea. Sound information is sent straight to the nerve in the brain. Hearing assistive technology - Helps you function better in your daily life and may be used with hearing aids or cochlear implants Surgery may be needed to repair the problem. This is based on the kind of hearing loss you have. You will need careful follow-up if surgery is needed. Are there other health problems to treat? If you have an infection or fluid in your middle ear, the doctor will treat this. If you have wax in your ears, it will be removed. What drugs may be needed? The doctor may order drugs to: Fight an infection Get rid of fluid in your ear What can be done to prevent this health problem? Wear ear protection around loud noises. Buy earplugs, earmuffs, or both. If you need to shout to beheard over a noise, it is loud enough to harm your hearing. Take extra care when using headphones or ear buds. Be sure that the volume is not too loud. Keep the volume level at no more than half volume on all devices. Call your doctor at the first sign of problems with your ears. This may include ringing in your ears, problems with balance, or not being able to hear what people are saying. Pay attention to noise ratings on appliances, power tools, and hair dryers. Purchase quieter products. Do not use items, such as cotton swabs, to ???clean out?? your ears. These may harm your outer earand eardrum. Where can I learn more? [employer] A[employer] https://www.nicholas.nih.gov/health/hsyqzmn-sroc-zkqqzp-tglbcul-obuff-nzylew PAIN During your health risk assessment you complained of pain. Pain can be an unpleasant feeling that happens in any part of the body. It can be mild or very bad. You may feel this pain always or it may just come and go. It may be dull, sharp, or throbbing. Pain can last for a long time or a short time. Pain can cause upset stomach and throwing up. When you are in pain you may not feel hungry. You may feel nervous. Pain can be acute or chronic. Acute pain tells you there may be an injury and you need to take careof yourself. Chronic pain lasts for a long period of time. What are the causes? Headache Back problems Arthritis Muscle strain Trauma, such as a blow to the body, fall, motor vehicle accident, or gunshot wound Infection Menstrual pain in women What are the main signs? Pain can be throbbing or shooting. Some people feel pain as dull and others as sharp. It may tingleor burn and shoot down an arm or leg. You may also notice that you are limited when moving a part of your body from pain. Sometimes, pain causes you to have muscle aches or spasms. Other people have headaches or are grouchy when in pain. Some people have loose stools when in pain. Some people have trouble sleeping when in pain. How does the doctor diagnose this health problem? Your doctor will ask you to talk about your pain. Tell the doctor: How your pain feels. Is it dull, sharp, burning, stabbing, or cramping? Where your pain is What causes your pain What makes your pain better or worse Your doctor may ask you to rate your pain. This means you would pick a number or picture that most closely describes your pain. The doctor may ask you to say what number your pain is between 0 and 10. Zero means you have no pain at all and 10 means you have the worst pain ever and you need to go [facility]. An exam will help your doctor find out where the pain is and what is causing it. Some simple blood tests may be done. This will help your doctor decide if any other tests are needed. How does the doctor treat this health problem? Mild drugs may be ordered to ease your pain. Sometimes, pain is a sign of some other problem in your body. In this case, drugs may not be ordered at all or only mild ones given. To treat mild to moderate pain: Acetaminophen Nonsteroidal anti-inflammatory drugs (NSAIDs) like aspirin or ibuprofen NSAIDs in a cream form can be used on the skin where you feel the pain Muscle relaxers may be used to loosen tight muscles To treat moderate to very bad pain: Weak opioid drugs like codeine Strong opioid drugs like morphine Ice, heat, rest, and elevating your painful body part may be used to ease pain and help with swelling from muscle pain. When Using Ice Place an ice pack or a bag of frozen peas wrapped in a towel over the painful part. Never put ice right on the skin. Do not leave the ice on more than 10 to 15 minutes at a time. When Using Heat Heat may be used later but not right away. Heat can make swelling worse. If your doctor tells you to use heat, put a heating pad on your painful part for no more than 20 minutes at a time. Never go to sleep with a heating pad on as this can cause vega. Your doctor may suggest other types of pain control to help you. Some of these are massage, acupuncture, resident care manager rn, and relaxation. What drugs may be needed? The doctor may order drugs to: Help with pain and swelling Relax tight muscles Take your drugs as ordered by your doctor. Some of these drugs can be habit forming and may cause side effects. What can be done to prevent this health problem? The best thing you can do is talk to your doctor about any pain you have. Your doctor can help you make a plan to lower your pain. Some causes of pain get better by staying active and working out. Your doctor may send you to a physical therapist to help you work on strength exercises and stretching. DENTAL CARE We recommend that you call your dentist of choice for an appointment to address your dental problems . Why is dental care important? There may be an even greater need to care for your teeth as you get older for the following reasons: As you age, your mouth may make less saliva, which means that some of its natural cleansing action may be lost and it may become very acidic, causing more decay. Medicines can also cause the mouth to be drum drier. The gums shrink and expose new areas of teeth to possible infection or decay. Dentures may not fit as well because of changes in the gums and the jawbones. The risk of oral cancer is higher. Brushing Teeth can last a lifetime if they are looked after. The most effective thing you can do is brushingyour teeth. [place] them in the morning and again before going to bed at night. Use a soft brush and get a new brush every 6 months. Pay attention to the gum line when you brush. Also brushing the roofof the mouth and the tongue gently will help remove germs and prevent bad breath. Brushing after each meal is best. If you can only brush once a day, it is best to do it at bedtime. Electric toothbrushes can be very helpful if you have arthritis. Ask your dentist or dental hygienist to show you theproper way to brush your teeth. Flossing Flossing will remove germs and food particles from between the teeth and along the gum line where brushing doesn't always reach. Insert the floss between the teeth, using a gentle sawing motion. Movethe floss up and down the side of each tooth. Always use a new section of floss when you put it between the next pair of teeth. Toothpaste and mouthwash Use a toothpaste that has fluoride and is recommended by the [employer]. [place]ar-control toothpaste may be helpful. Rinsing with an alcohol- free antibacterial mouthwash can help reduce plaque. Regular dental checkups Yearly dental checkups are recommended, even if you have full dentures. During your checkup, your dentist will remove any plaque and check your teeth for cavities. Your dentist will also check your gums for infection or inflammation and the rest of your mouth for signs of cancer. If you have red or white spots or other sores in the mouth that do not go away within 2 weeks, see your dentist. Mouth sores that do not go away can be an early sign of oral cancer. Early detection of mouth cancer allows the best chance for survival. SEAT BELT SAFETY Your Health Risk Assessment indicates you do not always wear your seat belt. Statistics show that seat belts save lives. Here are the top five reasons why wearing a safety belt can save your life. Passengers in a vehicle who are not wearing a seat belt can become projectiles during an accident. Unbuckled passengers can very easily be ejected through the front, rear or side windows, resulting in . Passengers in the rear seat of an automobile who use both lap and should safety belts are 44% more likely to survive in crash. The percentage increases to 73% for rear seat passengers in Vans or SUV vehicles. [facility] residents every day in vehicle accidents. Over 75% of all automobile accidents reported across the [facility] resulted in a fatality or serious bodily harm. Trucks are not immune. Each year there are thousands of fatalities of drivers of pickup trucks. Of those reported fatalities, more than 60% were not wearing a seat belt device. Wearing a seat belt prevents passenger ejection during a severe accident that involves a rollover. The chances of surviving this type of accident increases 45% when wearing a proper safety restraint device. In pickup trucks, that number increases to 60%. documented in this encounter Progress Notes * Aamir Vidal RN - 04/10/2023 8:00 AM CDTAddended by: AAMIR VIDAL I on: 07/21/2023 08:24 AM Modules accepted: Orders * Shereen Bee NP - 04/10/2023 8:00 AM CDT Medicare Annual Wellness Visit Chief Complaint: Natan is an 67-year-old male here for an annual wellness visit. Patient Care Team: Shereen Bee NP as PCP - General (Nurse Practitioner Family) HEALTH RISK ASSESSMENT 04/10/2023 7:59 AM 04/10/2023 8:10 AM Medicare Wellness During the past 4 weeks, how much have you been bothered by emotional problems such as feeling anxious, depressed, irritable, sad or downhearted and blue? Not at all Not at all During the past 4 weeks, has your physical and emotional health limited your social activities withfamily friends, neighbors or groups? Not at all Not at all During the past 4 weeks, how much bodily pain have you generally had? Very mild pain Very mild pain During the past 4 weeks, was someone able to help you if you needed and wanted help? Yes, as much as I wanted Yes, as much as I wanted During the past 4 weeks, what was the hardest physical activity you could do for atleast 2 minutes?Very heavy Very heavy Can you get places out of walking distance without help? Yes Yes Can you shop for groceries or clothes without help? Yes Yes Can you prepare your own meals? Yes Yes Can you do your own housework without help? Yes Yes Can you handle your own money without help? Yes Do you need help eating, bathing, dressing, or getting around your home? No During the past 4 weeks, how would you rate your general health? Good How have things been going for you during the past 4 weeks? Pretty well Are you having difficulties driving your car? No Do you always fasten your seatbeat when you are in a car? Yes Fall or dizzy when standing up Never Sexual problems Never Trouble eating well Never Teeth or dentures Never Problems using the telephone Never Tired or fatigued Seldom Do you currently smoke? Yes, and I'm not ready to quit During the past 4 weeks, how many drinks of wine, beer or other alcoholic bevearges did you have? 10 or more per week Do you exercise for about 20 minutes 3 or more days a week? No, I usually do not exercise this much How often do you have trouble taking medicines the way you have been told to take them? I always take them as prescribed How confident are you that you can control and manage most of your health problems? Very confident In the past 6 months, have you experienced leaking of urine? No Does the patient live alone? No Does the patient have throw rugs in their home? Yes Does the patient's home have poor lighting? No Does the patient have grab bars in their bathroom? Yes Does the patient have handrails on stairs and steps in their home? Yes Does the patient's home have functioning smoke alarms? Yes FALL RISK Fall Risk One or more falls in the last year:: No Feels unsteady when walking:: No Worried about falling:: No MINI-COG 04/10/2023 8:11 AM 04/10/2023 8:14 AM Mini-Cog 3 word recall 3 3 Clock Draw 2 2 Total Score = Word Recall Score + Clock Draw score 5 5 PHQ2/PHQ9 01/15/2020 1:53 PM 01/12/2021 8:11 AM 01/04/2022 12:19 PM 01/11/2022 8:53 AM 07/25/2022 2:08 PM 01/23/2023 8:04 AM PHQ2/PHQ 9 DEPRESSION SCREEN QUESTIONAIRE Little interest or pleasure in doing things Not at all Feeling down, depressed, or hopeless Not at all Patient Health Questionnaire-2 Score 0 Trouble falling or staying asleep, or [...] with other people? Not difficult at all LITTLE INTEREST OR PLEASURE IN DOING THINGS 0-Not at All 0-Not at All 0-Not at All 0-Not at All 0-Not at All FEELING DOWN, DEPRESSSED,OR HOPELESS 0-Not at All 0-Not at All 0-Not at All 0- Not at All 0-Not at All PHQ2 DEPRESSION TOTAL SCORE 0 0 0 0 0 TROUBLE FALLING OR STAYING [...] OFF ANY PROBLEMS Not difficult at all Not difficult at all SUBSTANCE USE SCREENING 01/12/2021 8:07 AM 04/10/2023 8:11 AM 04/10/2023 8:13 AM Audit C+2 Screening Q1: How often do you have a drink containing alcohol? Monthly or l 4 or more ti 4 or more ti Q2: How many drinks containing alcohol do you have on a typical day when you are drinking? 1 or 2 1or 2 1 or 2 Q3: How often do you have six or more drinks on one occasion? Weekly Weekly How often have you used marijuana? 0 0 How often have you used an illegal drug or a prescription medication for non- medical reasons? For example, used for the feeling or experience it caused. 0 0 Audit-C Score 7 7 Substance Use Score 0 0 Alcohol and Substance Total Score 7 7 The 10-year ASCVD risk score (Ramon SMITH, et al., 2019) is: 18.8% Values used to calculate the score: Age: 67 years Sex: Male Is Non- : No Diabetic: No Tobacco smoker: Yes Systolic Blood Pressure: 126 mmHg Is BP treated: Yes HDL Cholesterol: 51 MG/DL Total Cholesterol: 146 MG/DL HISTORY Past Medical History: Diagnosis Date Arthritis Cervical stenosis of spine Hyperlipidemia Influenza vaccine administered RANDY (obstructive sleep apnea) Past Surgical History: Procedure Laterality Date COLON SURGERY 03/18/2021 colostomy r/t perferation COLON SURGERY 09/22/2021 COLONOSCOPY N/A 2013 COLONOSCOPY N/A 08/13/2021 colonoscopy via rectum and ostomy with polypectomy and biopsy performed by Federico Mayer MD at [facility] OR COLOSTOMY reversable HERNIA REPAIR Right [facility] HERNIA REPAIR Left [facility] NECK/CHEST PROCEDURE UNLISTED Right [facility], re-built right side of neck. SMALL INTESTINE SURGERY bowel rupture TOTAL KNEE ARTHROPLASTY Bilateral ZANA Partial KR, done @ [facility] Family History Problem Relation Name Age of Onset Arthritis in Adults Mother Dementia Mother at the end per patient Hypertension Mother Cancer Father Heart Father Heart Disease Father Cancer Brother COPD Brother Social History Socioeconomic History Marital status: Social History Narrative LIVE AT HOME WITH Social History Tobacco Use Smoking status: Some Days Packs/day: 0.25 Types: Cigarettes, Cigars Smokeless tobacco: Never Tobacco comments: Has about 1 a day, a couple puffs. Substance Use Topics Alcohol use: Yes Alcohol/week: [...] (LIPITOR) 40 MG tablet TAKE 1 TABLET NIGHTLY AT BEDTIME. CHANGE FROM PRAVASTATIN DUE TO CHOLESTEROL NOT AT GOAL 90 tablet 2 Cholecalciferol (VITAMIN D) 50 MCG (2000 UT) Cap Take 50 mcg by mouth daily. Indications: Vitamin DDeficiency metoprolol succinate ER (TOPROL-XL) 25 MG 24 hr tablet Take 1 tablet (25 mg total) by mouth daily. 90 tablet 1 vitamin B-12 (CYANOCOBALAMIN) 1000 mcg tablet Take 1 tablet (1,000 mcg total) by mouth daily. Vitamin E 400 units Tab Take 400 Units by mouth daily. Indications: Nutritional Support zinc gluconate 50 MG Tab Take 1 tablet (50 mg total) by mouth daily. Indications: Nutritional Support CPAP SUPPLIES 1 Units by Does not apply route nightly at bedtime. Mask, tubing & filters (Patient not taking: Reported on 04/10/2023) 1 Device 3 No current facility-administered medications for this visit. EXAM Filed Vitals: 04/10/23 0757 BP: 126/85 Pulse: 62 Resp: 16 Temp: 98.2 ??F (36.8 ??C) TempSrc: Temporal SpO2: 100% Weight: 74.8 kg (165 lb) Height: 5' 7 (1.702 m) Patient denies any problems with hearing. ASSESSMENT AND PLAN The patient's current medical problems were reviewed. The following health maintenance schedule was reviewed with the patient and provided in printed form in the after visit summary: Health Maintenance Topic Date Due Annual Medicare Wellness Visit Never done COVID-19 Vaccine (5 - Booster for Moderna series) 10/20/2022 DTaP, Tdap and Td Vaccines (2 - Td or Tdap) 01/04/2030 Colorectal Cancer Screening Colonoscopy (10 Years) 08/13/2031 AAA SCREENING Completed Zoster Vaccines Completed Pneumococcal Vaccine: 65+ Years Completed Hepatitis C Completed Meningococcal Vaccine Aged Out The following list of Medicare Part B Covered Preventative Services and Identified Health Risks were discussed with the patient and will be reviewed with the patient???s PCP / care team for further follow up and scheduling. Cardiovascular disease (behavioral therapy) Cardiovascular disease screenings Colorectal cancer screenings Depression screening Diabetes prevention program Flu Shots Lung cancer screening Medical nutrition therapy services Prostate cancer screenings Sexually transmitted infection (STI) screening and counseling Based on Natan's responses to the Health Risk Assessment, we disscussed the following risks. ADVANCE DIRECTIVE The patient was counseled and encouraged to create an Advance Directive. This will be further evaluated and addressed at a follow up visit. DIET The patient was counseled and encouraged to consider modifying their diet and eating habits. He wasprovided with information on recommended healthy diet options. EMERGENCY SUPPLIES AND FIRST AID The patient reports that he does not have first aid kit or emergency equipment available. He was provided with information about emergency preparedness, including first aid supplies. EXERCISE He is at risk for lack of exercise and has been provided with information to increase physical activity for the benefit of his well-being. FALL RISK He is at risk for falling and has been provided with information to reduce the risk of falling at home as well as outside the home. HEARING PROBLEM The patient was provided with written information and appropriate referrals to address his hearing problem. PAIN The patient was provided with information and appropriate referrals to address his pain problem. TEETH CONDITION The patient was given suggestions to contact his dentist. He was provided with information on recommended dental care and hygiene. WEARING SEATBELT The patient reports that he does not use seatbelts regularly. He was counseled and provided with information regarding the importance of seatbelts. I reviewed all the information above with the patient and made screening recommendations based on my findings. SHEREEN BEE NP I reviewed the patient's history, vitals from today, answers to the assessment and the services recommended by SHEREEN BEE NP. I agree with the findings and recommendations. documented in this encounter Plan of Treatment Upcoming Encounters Date Type Department Care Team (Late st Contact Info) Description 01/27/2025 7:00 AM CDT Office Visit 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 Office Visit [facility] [address] Mily Gan MD [facility] [address] [place] [address] documented as of this encounter [...] documented as of this encounter Results * (ABNORMAL) CBC W/DIFF AUTOMATED (07/21/2023 8:26 AM CDT) WBC 5.51 4.4 - 11.0 x10'3/uL 07/21/2023 1:05 PM CDT [facility] RBC 4.50 4.50 - 5.90 x10'6/uL 07/21/2023 1:05 PM CDT [facility] HGB 14.5 14.0 - 17.5 G/DL 07/21/2023 1:05 PM CDT [facility] HCT 42.9 41.5 - 50.4 % 07/21/2023 1:05 PM CDT [facility] MCV 95.3 80.0 - 96.0 FL 07/21/2023 1:05 PM [facility] MCH 32.2(H) 26.5 - 31.4 PG 07/21/2023 1:05 PM [facility] MCHC 33.8 31.9 - 34.8 G/DL 07/21/2023 1:05 PM [facility] RDW 12.9 12.3 - 14.3 % 07/21/2023 1:05 PM [facility] PLT 241 151 - 353 x10'3/uL 07/21/2023 1:05 PM [facility] MPV 11.0 9.7 - 11.9 FL 07/21/2023 1:05 PM [facility] RBC MORPHOLOGY NORMAL 07/21/2023 1:05 PM [facility] PLT MORPH. NORMAL 07/21/2023 1:05 PM [facility] WBC MORPHOLOGY NORMAL 07/21/2023 1:05 PM [facility] LYMPHOCYTES % 33.8 15.8 - 45.0 % 07/21/2023 1:05 PM [facility] NEUTROPHILS % 51.6 42.1 - 71.9 % 07/21/2023 1:05 PM [facility] MONOCYTES % 11.3 5.7 - 12.5 % 07/21/2023 1:05 PM [facility] EOSINOPHILS 2.0 0.0 - 5.6 % 07/21/2023 1:05 PM [facility] BASOPHILS 1.1 0.0 - 1.3 % 07/21/2023 1:05 PM [facility] ABS. NEUTROPHILS 2.85 1.40 - 6.00 x10'3/uL 07/21/2023 1:05 PM [facility] IMMATURE GRANS % 0.2 0.0 - 0.5 % 07/21/2023 1:05 PM CDT [facility] ABS. LYMPHOCYTES 1.86 0.80 - 4.70 x10'3/uL 07/21/2023 1:05 PM CDT [facility] 07/21/2023 8:26 AM CDT Shereen Bee NP LABORATORY Final Result [facility] [address] [place] [address], * COMPREHENSIVE METABOLIC PANEL (07/21/2023 8:26 AM CDT) GLUCOSE 99 70 - 99 MG/DL 07/21/2023 2:03 PM CDT [facility] BUN 14 7 - 18 MG/DL 07/21/2023 2:03 PM CDT [facility] CREATININE S/P/B 0.82 0.7 - 1.3 MG/DL 07/21/2023 2:03 PM CDT [facility] SODIUM S/P/B 142 136 - 145 MMOL/L 07/21/2023 2:03 PM CDT [facility] POTASSIUM S/P/B 5.1 3.5 - 5.1 MMOL/L 07/21/2023 2:03 PM CDT [facility] CHLORIDE S/P/B 104 100 - 108 MMOL/L 07/21/2023 2:03 PM CDT [facility] CO2 30.5 21 - 32 MMOL/L 07/21/2023 2:03 PM CDT [facility] CALCIUM S/P/B 8.7 8.5 - 10.1 MG/DL 07/21/2023 2:03 PM CDT [facility] BILIRUBIN TOTAL S/P/B 0.9 0.2 - 1.2 MG/DL 07/21/2023 2:03 PM [facility] TOTAL PROTEIN S/P/B 7.5 6.4 - 8.2 G/DL 07/21/2023 2:03 PM [facility] ALBUMIN S/P/B 4.0 3.4 - 5.0 G/DL 07/21/2023 2:03 PM T [facility] AST 19 15 - 37 U/L 07/21/2023 2:03 PM [facility] ALT 32 16 - 60 U/L 07/21/2023 2:03 PM [facility] ALKALINE PHOSPHATASE S/P/B 60 50 - 136 U/L 07/21/2023 2:03 PM [facility] ANION GAP 7.5 5 - 15 MMOL/L 07/21/2023 2:03 PM [facility] BUN CREATININE RATIO 17.1 6 - 26 07/21/2023 2:03 PM [facility] A/G RATIO 1.1 1.0 - 2.0 RATIO 07/21/2023 2:03 PM [facility] GFR ESTIMATE >90 >90 ML/MIN/1.7 3 M2 07/21/2023 2:03 PM [facility] Comment: NOTE: eGFR is not calculated for patients <18 years of age. This is an estimated GFR calculation using the new CKD EPI creatinine equation without race and so does not require a correction factor for race. This estimated GFR should not be used for calculating drug doses. 07/21/2023 8:26 AM CDT us Shereen Bee NP LABORATORY Final Result [facility] [address] [place] [address], * LIPID PANEL (07/21/2023 8:26 AM CDT) [facility] Signature CHOLESTEROL 162 <200.0 MG/DL 07/21/2023 2:03 PM CDT [facility] TRIGLYCERIDES 69 <150 MG/DL 07/21/2023 2:03 PM CDT [facility] HDL 53 >40.0 MG/DL 07/21/2023 2:03 PM CDT [facility] LDL (CALCULATED) 95 <100 MG/DL 07/21/20 2:03 PM CDT [facility] NON HDL CHOLESTEROL 109 <130 MG/DL 07/21 2:03 PM CDT [facility] CHOL/HDL RATIO 3.1 0.0 - 4.5 07/21/2023 2:03 PM CDT [facility] VLDL CALCULATION 14 5 - 55 MG/DL 07/21/2023 2:03 PM T [facility] LIPID INTERPRETATION 07/21/2023 2:03 PM T [facility] Comment: NIH CONCENSUS REPORT RECOMMENDATIONS: [...] >=160 ?>=130 07/21/2023 8:26 AM CDT us Shereen Bee NP LABORATORY Final Result Performing Organization Address [facility] Co de Phone Number [facility] [address] [place] [address], * (ABNORMAL) VITAMIN B12 / FOLATE (07/21/2023 8:26 AM CDT) Pathologist [facility] VITAMIN B12 S/P/B 1,285(H) 193 - 986 PG/ML 07/21/2023 2:03 PM CDT [facility] FOLATE >20.0 8.6 - 58.9 NG/ML 07/21/2023 2:03 PM CDT [facility] 07/21/2023 8:26 AM CDT us Shereen Dragovich MANAGER CONCRETE LABORATORY Final Result Performing Organization Address [facility] de Phone Number [facility] [address] [place] [address], * VITAMIN D, 25 OH (07/21/2023 8:26 AM CDT) VITAMIN D 25 HYDROXY S/P/B 51 30 - 100 NG/ML 07/24/2023 6:58 PM CDT [facility] Comment: ? INTERPRETATION ? DEFICIENT ??<20 ? INSUFFICIENT 20-29 ?SUFFICIENT 30-100 07/21/2023 8:26 AM CDT Shereen Bee MANAGER CONCRETE LABORATORY Final Result Performing Organization Address [facility] de Phone Number [facility] [address] [place] [address], [place] [phone] documented in this encounter Visit Diagnoses Diagnosis Routine general medical examination at a health care facility- Primary Mixed hyperlipidemia Primary hypertension Unspecified essential hypertension Vitamin D deficiency Unspecified vitamin D deficiency Vitamin B deficiency Unspecified vitamin B deficiency documented in this encounter Additional Health Concerns Assessment Noted Time PHQ-9 Depression Total Score: 0 01/24/20 8:04 AM CDT documented as of this encounter Care Teams Brick Machine Operator Relationship Specialty [place] [address] [place] [address] PCP - General Nurse Practitioner Family 02/10/2301/04 documented as of this encounter
--- OUTSIDE RECORDS SUMMARY | 2024-11-02 07:56 | XMS_ITS | Encounter Summary ---
Author Organization [facility] Address [address] [place] [address]. [place], [place] [address] [place] [address] Care Team Providers Care Hand Or Machine Paster Name Role Phone Lorie Chan MD Primary Care Provider [phone] Encounter Details Date Type Department Care Team (Latest Contact Info) Description 01/16/2023 Travel Social History Tobacco Use Types Packs/Day [...] on file 07/2021 PHQ-2 Answer Date Recorded PHQ-2 Score - If the patient scores above 3, please move on to questions 3-9 0 07/25/2022 Sex and Gender Information Value Date Recorded Sex Assigned at Not on file Legal Sex Male 9:58 PM CREDIT HISTORIAN Gender Identity Not on file Sexual Orientation Not on file COVID-19 Exposure Response Date Recorded In the last 10 days, have yo u been in contact with someone who was confirmed or suspected to have Coronavirus/COVID-19? No / Unsure 01/16/2023 5:35 PM CDT documented as of this encounter Functional Status * RETIRED Are you deaf or do you have serious difficulty hearing Answer Date of Assessment Author Status No 10/02/2021 12:38 PM CREDIT HISTORIAN Acti ve * RETIRED Are you blind or do you have serious difficulty seeing, even when wearing glasses? Answer Date of Assessment Author Status No 10/02/2021 12:38 PM CREDIT HISTORIAN Acti ve * Do you have serious difficulty walking or climbing stairs? Answer Date of Assessment Author Status No 10/02/2021 12:38 PM CREDIT HISTORIAN Annette Jorge R N Active * Do you have difficulty dressing or bathing? Answer Date of Assessment Author Status No 10/02/2021 12:38 PM CREDIT HISTORIAN Annette Jorge, R N Active * Because of a physical, mental, or emotional condition, do you have difficulty doing errands alone such as visiting a doctor's office or shopping? Answer Date of Assessment Author Status No 10/02/2021 12:38 PM CREDIT HISTORIAN Annette Jorge R N Active documented as of this encounter Mental Status * Because of a physical, mental, or emotional condition, do you have serious difficulty concentrating, remembering, or making decisions? Answer Entry Date Author Status No 10/02/2021 12:38 PM CREDIT HISTORIAN Annette Jorge, R N Active documented in this encounter Plan of Treatment Upcoming Encounters Date Type Department Care Team (Late st Contact Info) Description 01/27/2025 7:00 AM CDT Office Visit [facility] Family & Internal Medicine [address] [address] Ilir Nelson PA [address] [place] [phone] 10/22/2025 9:15 AM CREDIT HISTORIAN Office Visit [facility] [address] Mily Gan MD [address] [address] documented as of this encounter Goals Goal Patient Goal Type Associated Problems Recent Progress Patient-Stated? Author Establish Plan for Symptom Monitoring General No Sammie, Jesi J, RN Monitor - demonstrates appropriate technique of care of indwelling urinary catheter and new ostomy General Jeis Ye, RN Patient will return to prior living situation and remain independent in ADLs upon discharge from hospital General Aliya Sotelo RN documented as of this encounter Visit Diagnoses Not on filedocumented in this encounter Additional Health Concerns Assessment Noted Time PHQ-9 Depression Total Score: 1 01/12/20 22 8:53 AM CREDIT HISTORIAN documented as of this encounter Care Teams Hand Or Machine Paster Relationship Specialty Start Date End Date Lorie Chan MD PCP - General INTERNAL MEDICINE 01/15/20 02/09/23 documented as of this encounter
--- OUTSIDE RECORDS SUMMARY | 2024-11-02 07:56 | XMS_ITS | Encounter Summary ---
Author Organization [facility] Address [address] [place] [address]. [place], [place] [address] [place] [address] Care Team Providers Care Lunch Truck Driver Name Role Phone Lorie Chan MD Primary Care Provider [phone] Reason for Visit * Reason Onset Date Comments Pre-visit Gap Closure 01/19/2023 Encounter Details Date Type Department Care Team (Late st Contact Info) Description 01/19/2023 Patient Outreach [facility] Family & Internal Medicine [address] [address] Babar Baumann MA Pre-visit Gap Closure Social History Tobacco [...] on file Legal Sex Male 9:58 PM OPHTHALMIC MEDICAL TECHNOLOGIST Gender Identity Not on file Sexual Orientation [...] Assessment Author Status No 10/02/2021 12:38 PM OPHTHALMIC MEDICAL TECHNOLOGIST Acti ve * RETIRED Are you blind or do you have serious difficulty seeing, even when wearing glasses? Answer Date of Assessment Author Status No 10/02/2021 12:38 PM OPHTHALMIC MEDICAL TECHNOLOGIST Acti ve * Do you have serious difficulty walking or climbing stairs? Answer Date of Assessment Author Status No 10/02/2021 12:38 PM OPHTHALMIC MEDICAL TECHNOLOGIST Annette Jorge R N Active * Do you have difficulty dressing or bathing? Answer Date of Assessment Author Status No 10/02/2021 12:38 PM OPHTHALMIC MEDICAL TECHNOLOGIST Annette Jorge R N Active * Because of a physical, mental, or emotional condition, do you have difficulty doing errands alone such as visiting a doctor's office or shopping? Answer Date of Assessment Author Status No 10/02/2021 12:38 PM OPHTHALMIC MEDICAL TECHNOLOGIST Annette Jorge R N Active documented as of this encounter Mental Status * Because of a physical, mental, or emotional condition, do you have serious difficulty concentrating, remembering, or making decisions? Answer Entry Date Author Status No 10/02/2021 12:38 PM OPHTHALMIC MEDICAL TECHNOLOGIST Annette Jorge R N Active documented in this encounter Progress Notes * Jelena Baumann - 01/19/2023 2:18 PM CDT Preventive Screenings: Breast Cancer Screening: N/A Notes: Colorectal Cancer Screening: Up to Date Notes: Diabetic Eye Exam: N/A Notes: Falls Risk Screening: Needs Follow Up Notes: Tobacco Cessation: Needs Follow Up Notes: Labs: BMP/CMP: N/A Notes: Hemoglobin A1c: N/A Notes: Lipid: N/A Notes: Urine Albumin-Creatinine Ratio: N/A Notes: Immunizations: Influenza: Up to Date Notes: Pneumococcal: Up to Date Notes: Shingles: Needs Follow Up Notes: Only 1 of 2 received but too soon to have the 2nd one documented in this encounter Plan of Treatment Upcoming Encounters Date Type Department Care Team (Late st Contact Info) Description 01/27/2025 7:00 AM CDT Office Visit [facility] Family & Internal Medicine [facility] [address] [place] [address] [place] [address] [place], [place] [phone] 10/22/2025 9:15 AM OPHTHALMIC MEDICAL TECHNOLOGIST Office Visit [facility] [address] Mily Gan MD [facility] [address] [place] [address] documented as of this encounter [...] upon discharge from hospital General No Aliya Stokes, GINA documented as of this encounter Visit Diagnoses Not on filedocumented in this encounter Additional Health Concerns Assessment Noted Time PHQ-9 Depression Total Score: 1 01/12/20 22 8:53 AM OPHTHALMIC MEDICAL TECHNOLOGIST documented as of this encounter Care Teams Lunch Truck Driver Relationship Specialty Start Date End Date Lorie Chan MD PCP - General INTERNAL MEDICINE 01/15/20 02/09/23 documented as of this encounter
--- OUTSIDE RECORDS SUMMARY | 2024-11-02 07:56 | XMS_ITS | Encounter Summary ---
Author Organization [facility] Address [address] [place] [address]. [place], [place] [address] [place] [address] Care Team Providers Care Hat Renovator Name Role Phone Lorie Chan MD Primary Care Provider [phone] Encounter Details Date Type Department Care Team (Latest Contact Info) Description 01/23/2023 Travel Social History Tobacco Use Types Packs/Day [...] on file Legal Sex Male 9:58 PM MICRO COMPUTER SPECIALIST Gender Identity Not on file Sexual Orientation Not on file COVID-19 Exposure Response Date Recorded In the last 10 days, have yo u been in contact with someone who was confirmed or suspected to have Coronavirus/COVID-19? No / Unsure 01/23/2023 7:54 AM CDT documented as of this encounter Functional Status * RETIRED Are you deaf or do you have serious difficulty hearing Answer Date of Assessment Author Status No 10/02/2021 12:38 PM MICRO COMPUTER SPECIALIST Acti ve * RETIRED Are you blind or do you have serious difficulty seeing, even when wearing glasses? Answer Date of Assessment Author Status No 10/02/2021 12:38 PM MICRO COMPUTER SPECIALIST Acti ve * Do you have serious difficulty walking or climbing stairs? Answer Date of Assessment Author Status No 10/02/2021 12:38 PM MICRO COMPUTER SPECIALIST Annette Jorge R Susan Active * Do you have difficulty dressing or bathing? Answer Date of Assessment Author Status No 10/02/2021 12:38 PM MICRO COMPUTER SPECIALIST Annette Jorge R N Active * Because of a physical, mental, or emotional condition, do you have difficulty doing errands alone such as visiting a doctor's office or shopping? Answer Date of Assessment Author Status No 10/02/2021 12:38 PM MICRO COMPUTER SPECIALIST Annette Jorge R N Active documented as of this encounter Mental Status * Because of a physical, mental, or emotional condition, do you have serious difficulty concentrating, remembering, or making decisions? Answer Entry Date Author Status No 10/02/2021 12:38 PM MICRO COMPUTER SPECIALIST Annette Jorge, R N Active documented in this encounter Plan of Treatment Upcoming Encounters Date Type Department Care Team (Late st Contact Info) Description 01/27/2025 7:00 AM CDT Office Visit [facility] Family & Internal Medicine [facility] [id number] [place] [phone] Ilir Nelson PA [address] [place] [phone] 10/22/2025 9:15 AM MICRO COMPUTER SPECIALIST Office Visit [facility] [address] Mily Gan MD [address] [phone] documented as of this encounter Goals Goal Patient Goal Type Associated Problems Recent Progress Patient-Stated? Author Establish Plan for Symptom Monitoring General No Jesi Cochran, RN Monitor - demonstrates appropriate technique of care of indwelling urinary catheter and new ostomy General No Jesi Cochran RN Patient will return to prior living situation and remain independent in ADLs upon discharge from hospital [facility] No Aliya Stokes RN documented as of this encounter Visit Diagnoses Not on filedocumented in this encounter Additional Health Concerns Assessment Noted Time PHQ-9 Depression Total Score: 0 01/24/20 8:04 AM CDT documented as of this encounter Care Teams Hat Renovator Relationship Specialty Start Date End Date Lorie Chan MD PCP - General INTERNAL MEDICINE 01/15/20 02/09/23 documented as of this encounter
--- OUTSIDE RECORDS SUMMARY | 2024-11-02 07:56 | XMS_ITS | Encounter Summary ---
Author Organization [facility] Address [address] [place] [address]. [place], [place] [id number] [place] [address] Care Team Providers Care Outside Parts Salesman Name Role Phone Lorie Castanon MD Primary Care Provider [phone] Reason for Visit * Reason Comments Hypertension QPA 6 MONTH FOLLOW U P HYPERTENSION / MEDICATIONS / AND OTHER ISSUES Encounter Details Date Type Department Care Team (Late st Contact Info) Description 01/23/2023 8:00 AM CDT Office Visit [facility] Family & Internal Medicine [facility] [id number] [place] [phone] [place] Castanon [place] [address] [place] [address] Hypertension (QPA 6 MONTH FOLLOW UP HYPERTENSION / MEDICATIONS / AND OTHER ISSUES) Social History Tobacco Use Types Packs/Day Years [...] on file Legal Sex Male 9:58 PM STRATEGIC DEBRIEFING SPECIALIST Gender Identity Not on file Sexual Orientation Not on file COVID-19 Exposure Response Date Recorded In the last 10 days, have yo u been in contact with someone who was confirmed or suspected to have Coronavirus/COVID-19? No / Unsure 01/23/2023 7:54 AM CDT documented as of this encounter Last Filed Vital Signs Vital Sign Reading Time Taken Comments Blood Pressure 154/95 01/23/2023 8:06 AM CDT Pulse 72 01/23/2023 7:57 AM CDT Temperature 35.3 ??C (95.6 ??F) 01/23/2023 7:57 AM CD T Respiratory Rate 20 01/23/2023 7:57 AM CDT Oxygen Saturation 98% 01/23/2023 7:57 AM CDT Inhaled Oxygen Concentration - - Weight 75.6 kg (166 lb 9.6 oz) 01/23/2023 7:57 A M CDT Height 170.2 cm (5' 7 ) 01/23/2023 7:57 AM CDT Body Mass Index 26.09 01/23/2023 7:57 AM CDT documented in this encounter Functional Status * RETIRED Are you deaf or do you have serious difficulty hearing Answer Date of Assessment Author Status No 10/02/2021 12:38 PM STRATEGIC DEBRIEFING SPECIALIST Acti ve * RETIRED Are you blind or do you have serious difficulty seeing, even when wearing glasses? Answer Date of Assessment Author Status No 10/02/2021 12:38 PM STRATEGIC DEBRIEFING SPECIALIST Acti ve * Do you have serious difficulty walking or climbing stairs? Answer Date of Assessment Author Status No 10/02/2021 12:38 PM STRATEGIC DEBRIEFING SPECIALIST Annette Jorge R N Active * Do you have difficulty dressing or bathing? Answer Date of Assessment Author Status No 10/02/2021 12:38 PM STRATEGIC DEBRIEFING SPECIALIST Annette Jorge R N Active * [...] documented in this encounter Progress Notes * Lorie Castanon MD - 01/23/2023 8:00 AM CDT Reason for Visit: Hypertension (QPA 6 MONTH FOLLOW UP HYPERTENSION / MEDICATIONS / AND OTHER ISSUES) Follow Up Pertinent negatives include no chest pain. Hypertension Pertinent negatives include no chest pain. 67-year-old male here today to follow-up hypertension and hyperlipidemia, in the past he had suddenonset of abdominal pain and perforated diverticuli and ended up with an ostomy which was then reversed and he is doing well from this standpoint. Over the last year he lost 1 brother due to disseminated cancer and a sister he thinks may have hadlung cancer and another brother he is not sure what he from. When he was in the hospital for his surgery he went into A. fib and was on a beta-xin however this is over a year he has not had a recurrence and would like to go off the metoprolol His father young of premature coronary artery disease CHF & disseminated throat cancer. sothey had him on pravastatin 80 aspirin and vitamin E Doing well on CPAP He uses this regularly without problems Hyperlpidemia STABLE ON ATORVASTATIN, No CP, SOB or LOYA. Quit the Metoprolol now his B/P his elevated but has no symptoms Review of Systems Constitutional: Negative. HENT: Negative. Eyes: Negative. Respiratory: Negative. RANDY on CPAP Cardiovascular: Negative. Negative for chest pain. Gastrointestinal: Ostomy revision scar intact Genitourinary: Positive for frequency. Nocturia Musculoskeletal: Positive for joint pain. Left shoulder pain see HPI Skin: Negative. Neurological: Negative. Psychiatric/Behavioral: Negative. Current Outpatient Medications: ??? Ascorbic Acid (VITAMIN C) 100 MG tablet, Take 1 tablet (100 mg total) by mouth daily. Indications: Vitamin and/or Mineral Deficiency, Disp: , Rfl: ??? aspirin 81 MG chewable tablet, Chew 1 tablet (81 mg total) by mouth nightly at bedtime. Indications: Anticoagulant Therapy, Disp: , Rfl: ??? atorvastatin (LIPITOR) 40 MG tablet, TAKE 1 TABLET NIGHTLY AT BEDTIME. CHANGE FROM PRAVASTATIN DUE TO CHOLESTEROL NOT AT GOAL, Disp: 90 tablet, Rfl: 2 ??? Cholecalciferol (VITAMIN D) 50 MCG (2000 UT) Cap, Take 50 mcg by mouth daily. Indications: Vitamin D Deficiency , Disp: , Rfl: ? ? CPAP SUPPLIES, 1 Units by Does not apply route nightly at bedtime. Mask, tubing & filters (Patient taking differently: 1 Units by Does not apply route nightly at bedtime. Indications: RANDY Mask, tubing & filters), Disp: 1 Device, Rfl: 3 ??? metoprolol succinate ER (TOPROL-XL) 25 MG 24 hr tablet, Take 1 tablet (25 mg total) by mouth daily., Disp: 90 tablet, Rfl: 1 ??? vitamin B-12 (CYANOCOBALAMIN) 1000 mcg tablet, Take 1 tablet (1,000 mcg total) by mouth daily.,Disp: , Rfl: ??? Vitamin E 400 units Tab, Take 400 Units by mouth daily. Indications: Nutritional Support, Disp:, Rfl: ??? zinc gluconate 50 MG Tab, Take 1 tablet (50 mg total) by mouth daily. Indications: Nutritional Support, Disp: , Rfl: Allergies Allergen Reactions ??? Morphine Itching Past Medical History: Diagnosis Date ??? Arthritis ??? Cervical stenosis of spine ??? Hyperlipidemia ??? Influenza vaccine administered ??? RANDY (obstructive sleep apnea) Past Surgical History: Procedure Laterality Date ??? COLON SURGERY 03/18/2021 colostomy r/t perferation ??? COLON SURGERY 09/22/2021 ??? COLONOSCOPY N/A 2013 ??? COLONOSCOPY N/A 08/13/2021 colonoscopy via rectum and ostomy with polypectomy and biopsy performed by Federico Mayer MD at [facility] OR ??? COLOSTOMY reversable ??? HERNIA REPAIR Right [facility] ??? HERNIA REPAIR Left [facility] ??? NECK/CHEST PROCEDURE UNLISTED Right [facility], re-built right side of neck. ??? SMALL INTESTINE SURGERY bowel rupture ??? TOTAL KNEE ARTHROPLASTY Bilateral ZANA Partial KR, done @ [facility] Social History Socioeconomic History ??? Marital status: Tobacco Use ??? Smoking status: Some Days Packs/day: 0.25 Types: Cigarettes, Cigars ??? Smokeless tobacco: Never ??? Tobacco comments: Has about 1 a day, a couple puffs. Vaping Use ??? Vaping Use: Never used Substance and Sexual Activity ??? Alcohol use: Yes Alcohol/week: 3.3 standard drinks Types: 2 Cans of beer per week Comment: daily ??? Drug use: Never ??? Sexual activity: Not Currently Partners: Female Social History Narrative LIVE AT HOME WITH Family History Problem Relation Name Age of Onset ??? Arthritis in Adults Mother ??? Dementia Mother at the end per patient ??? Hypertension Mother ??? Cancer Father ??? Heart Father ??? Heart Disease Father ??? Cancer Brother ??? COPD Brother Family Status Relation Name Status ??? Mother ??? Father ??? Brother ??? Brother Alive Filed Vitals: 01/23/23 0757 01/23/23 0806 BP: (!) 164/88 (!) 154/95 Pulse: 72 Resp: 20 Temp: 95.6 ??F (35.3 ??C) TempSrc: Temporal SpO2: 98% Weight: 75.6 kg (166 lb 9.6 oz) Height: 5' 7 (1.702 m) Body mass index is 26.09 kg/m??. Physical Exam Constitutional: Appearance: Normal appearance. He is well-developed. HENT: Head: Normocephalic. Eyes: Conjunctiva/sclera: Conjunctivae normal. Pupils: Pupils are equal, round, and reactive to light. Cardiovascular: Rate and Rhythm: Normal rate and regular rhythm. Heart sounds: Normal heart sounds. Pulmonary: Effort: Pulmonary effort is normal. Breath sounds: Normal breath sounds. Abdominal: General: Bowel sounds are normal. Palpations: Abdomen is soft. Comments: Ostomy reversal scar intact Musculoskeletal: General: Normal range of motion. Cervical back: Neck supple. Skin: General: Skin is dry. Comments: Ostomy reversal scar intact left abdomen Neurological: Mental Status: He is alert and oriented to person, place, and time. Cranial Nerves: No cranial nerve deficit. Psychiatric: Judgment: Judgment normal. Assessment/PLAN 1. Mixed hyperlipidemia - atorvastatin (LIPITOR) 40 MG tablet; TAKE 1 TABLET NIGHTLY AT BEDTIME. CHANGE FROM PRAVASTATIN DUE TO CHOLESTEROL NOT AT GOAL Dispense: 90 tablet; Refill: 2 - metoprolol succinate ER (TOPROL-XL) 25 MG 24 hr tablet; Take 1 tablet (25 mg total) by mouth daily. Dispense: 90 tablet; Refill: 1 - CBC W/DIFF AUTOMATED; Future - COMPREHENSIVE METABOLIC PANEL; Future - LIPID PANEL; Future - TSH W/REFLEX; Future - VITAMIN B12 / FOLATE; Future - CBC W/DIFF AUTOMATED - COMPREHENSIVE METABOLIC PANEL - LIPID PANEL - TSH W/REFLEX - VITAMIN B12 / FOLATE 2. Primary hypertension - metoprolol succinate ER (TOPROL-XL) 25 MG 24 hr tablet; Take 1 tablet (25 mg total) by mouth daily. Dispense: 90 tablet; Refill: 1 3. Vitamin D deficiency - VITAMIN D, 25 OH; Future - VITAMIN D, 25 OH COUNSELING: I spent 32 minutes today reviewing the patient's medical record, obtaining history, performing an exam, ordering medications, tests and/or procedures, documenting in the medical record, referring and/or communicating with other health care providers, counseling and educating the patient/family/caregiver. Reviewing and communicating test results & coordination of care. Hyperlipidemia to goal, cont statin & recheck lipids in 6 months HTN b/p elevated restart Metoprolol at 25 mg & recheck in 6 mo Continue healthy diet regular exercise and maintain normal body weight Osteoarthritis stable Doing well with his CPAP, good compliance, order supplies. Fu 6 months with labs Follow up FU 6 MONTHS LORIE CASTANON MD 01/23/2023 8:40 AM documented in this encounter Plan of Treatment Upcoming Encounters Date Type Department Care Team (Late st Contact Info) Description 01/27/2025 7:00 AM CDT Office Visit [facility] Family & Internal Medicine - [place] [id number] [place] [phone] [place] Nelson [place] [id number] [place] [address] 10/22/2025 9:15 AM STRATEGIC DEBRIEFING SPECIALIST Office Visit [facility] [address] [place] [address] Mily Gan MD [facility] [address] [place] [address] Scheduled Orders Name Type Priority Associated Diagnoses Orde r Schedule CBC W/DIFF AUTOMATED Lab Routine Mixed hyperlipidemia Expected: 05/12/2023, Expires: 01/11/2024 COMPREHENSIVE METABOLIC PANEL Lab Routine Mixed hyperlipidemia Expected: 05/12/2023, Expires: 01/11/2024 LIPID PANEL Lab Routine Mixed hyperlipidemia Expected: 05/12/2023, Expires: 01/11/2024 TSH W/REFLEX Lab Routine Mixed hyperlipidemia Expected: 05/12/2023, Expires: 01/11/2024 VITAMIN B12 / FOLATE Lab Routine Mixed hyperlipidemia Expected: 05/12/2023, Expires: 01/11/2024 VITAMIN D, 25 OH Lab Routine Vitamin D deficiency Expected: 05/12/2023, Expires: 01/11/2024 documented as of this encounter Goals Goal [...] as of this encounter Visit Diagnoses Diagnosis Vitamin D deficiency- Primary Unspecified vitamin D deficiency Mixed hyperlipidemia Primary hypertension Unspecified essential hypertension documented in this encounter Additional Health Concerns Assessment Noted Time PHQ-9 Depression Total Score: 0 01/24/20 8:04 AM CDT documented as of this encounter Care Teams Outside Parts Salesman Relationship Specialty Start Date End Date Lorie Castanon MD PCP - General INTERNAL MEDICINE 01/15/20 02/09/23 documented as of this encounter
--- OUTSIDE RECORDS SUMMARY | 2024-11-02 07:56 | XMS_ITS | Encounter Summary ---
Author Organization [facility] Address [address] [place] [address]. [place], [place] [address] [place] [address] Care Team Providers Care Filling And Packing Supervisor Name Role Phone Lorie Chan MD Primary Care Provider [phone] Reason for Visit * Reason Comments Shoulder Pain * Physical Therapy (Routine) - Closed Specialty Diagnoses / Procedures Referred By Shelby jama Referred To Contact PHYSICAL THERAPY / [facility] Physical Therapy Diagnoses Pain in left shoulder Procedures Burak Garcia MD [address] [facility] [address] [place] [address] Phone: tel: fax: [place] [address] [place] [address] Phone: tel: fax: Referral ID Status Reason Start Date Expiration Date Visits Re quested Visits Authorized [id number] Closed 01/16/2023 01/17/2024 99 99 Encounter Details Date Type Department Care Team (Latest Contact Info) Description 01/25/2023 1:45 PM CDT - 01/25/2023 11:59 PM CDT Hospital Encounter [facility] [address] [place] [address] [place] [address] [place] [address] Shoulder Pain Discharge Disposition: Home or Self Care (Routine [...] on file Legal Sex Male 9:58 PM LABEL STITCHER Gender Identity Not on file Sexual Orientation Not on file COVID-19 Exposure Response Date Recorded In the last 10 days, have yo u been in contact with someone who was confirmed or suspected to have Coronavirus/COVID-19? No / Unsure 01/25/2023 1:30 PM CDT documented as of this encounter Functional Status * RETIRED Are you deaf or do you have serious difficulty hearing Answer Date of Assessment Author Status No 10/02/2021 12:38 PM LABEL STITCHER Acti ve * RETIRED Are you blind or do you have serious difficulty seeing, even when wearing glasses? Answer Date of Assessment Author Status No 10/02/2021 12:38 PM LABEL STITCHER Acti ve * Do you have serious difficulty walking or climbing stairs? Answer Date of Assessment Author Status No 10/02/2021 12:38 PM LABEL STITCHER Annette Jorge R N Active * Do you have difficulty dressing or bathing? Answer Date of Assessment Author Status No 10/02/2021 12:38 PM LABEL STITCHER Annette Jorge R N Active * Because of a physical, mental, or emotional condition, do you have difficulty doing errands alone such as visiting a doctor's office or shopping? Answer Date of Assessment Author Status No 10/02/2021 12:38 PM LABEL STITCHER Annette Jorge R N Active documented as of this encounter Mental Status * Because of a physical, mental, or emotional condition, do you have serious difficulty concentrating, remembering, or making decisions? Answer Entry Date Author Status No 10/02/2021 12:38 PM LABEL STITCHER Annette Jorge R N Active documented in this encounter Discharge Instructions * Patient Instructions* Sterling Michael, PT - 01/25/2023 1:45 PM CDT Access Code: [email or web address] URL: [email or web address] Date: 01/25/2023 Prepared by: Sherie Exercises Standing Shoulder Flexion to 90 Degrees with Dumbbells - 1 x daily - 5 x weekly - 2-3 sets - 10 reps documented in this encounter Medications at Time [...] by mouth daily. 90 tablet 1 3 04/07/20 23 vitamin B-12 (CYANOCOBALAMIN) 1000 mcg tablet Take 1 tablet (1,000 mcg total) by mouth daily. 07/25/20 23 documented as of this encounter Progress Notes * Sterling Michael, PT - 01/25/2023 1:45 PM CDT Physical Therapy Visit Note: Patient Name: Natan Patel Diagnosis: Left shoulder pain (primary encounter diagnosis) Rotator cuff tear, left SUBJECTIVE Therapy Visit Total Approved Visits: Medicare Therapy Plan of Care: 1-3 x week for 8 weeks up to 24 visits Diagnosis: L shoulder pain, RCT Subjective Note: Doing well overall. No c/o pain today. Feels ready to progress to HEP. Reported Falls since last visit: 0 Medications changes since last visit : 0 OBJECTIVE Treatment provided today: Objective Objective Measurement: AROM flexion 152L, AAROM supine flexion 160, ER MMT 5/5, Flexion MMT 5/5 Therapeutic Exercise - 26641 Number of Minutes - 24166: 40 Exercise: back v wall flexion to 90 Exercise: Wall slides elbows on wall as long as possible- emph scap retraction on descent x 15 Exercise: B ER RTB towel at side x 20 Exercise: Supine AAROM cane x 10 Exercise: Sidelying ER x 10 Exercise: prone horizontal abduction x 10 Exercise: prone extension x 10 Patient/Family Education: Joint Protection Principles ASSESSMENT Assessment Note: Tolerated treatment program well with no report of pain with ADLs. Mild discomfort at end range reach in standing/supine but this has subsided with HEP. Mild shrug with shoulder flexion but patient able to improve with cues. Suggest HEP only, return to PT PRN. Continue on Functional Deficit of: pain with end range reach PLAN Plan Next Visit Plan: Continue POC Total Time Total Time in Minutes: 40 Timed Code Treatment Minutes : 40 documented in this encounter Plan of Treatment Upcoming Encounters Date Type Department Care Team (Late st Contact Info) Description 01/27/2025 7:00 AM CDT Office Visit [facility] Family & Internal Medicine [address] [phone] [place] [address] [place] [address] 10/22/2025 9:15 AM LABEL STITCHER Office Visit [facility] [address] [place] [address] Mily Gan MD [facility] [address] [place] [address] documented as of this encounter Goals Goal [...] as of this encounter Visit Diagnoses Diagnosis Left shoulder pain- Primary Pain in joint, shoulder region Rotator cuff tear, left Rotator cuff (capsule) sprain documented in this encounter Additional Health Concerns Assessment Noted Time PHQ-9 Depression Total Score: 0 01/24/20 8:04 AM CDT documented as of this encounter Care Teams Filling And Packing Supervisor Relationship Specialty Start Date End Date Lorie Chan MD PCP - General INTERNAL MEDICINE 01/15/20 02/09/23 documented as of this encounter
--- OUTSIDE RECORDS SUMMARY | 2024-11-02 07:56 | XMS_ITS | Encounter Summary ---
Author Organization [facility] Address [address] [place] [address]. [place], [place] [address] [place] [address] Care Team Providers Care Director Of Science Name Role Phone Lorie Chan MD Primary Care Provider [phone] Encounter Details Date Type Department Care Team (Latest Contact Info) Description 01/25/2023 Travel Social History Tobacco Use Types Packs/Day [...] on file Legal Sex Male 9:58 PM TELEGRAPH PRINTER MECHANIC Gender Identity Not on file Sexual Orientation [...] Assessment Author Status No 10/02/2021 12:38 PM TELEGRAPH PRINTER MECHANIC Acti ve * RETIRED Are you blind or do you have serious difficulty seeing, even when wearing glasses? Answer Date of Assessment Author Status No 10/02/2021 12:38 PM TELEGRAPH PRINTER MECHANIC Acti ve * Do you have serious difficulty walking or climbing stairs? Answer Date of Assessment Author Status No 10/02/2021 12:38 PM TELEGRAPH PRINTER MECHANIC Annette Jorge R Susan Active * Do you have difficulty dressing or bathing? Answer Date of Assessment Author Status No 10/02/2021 12:38 PM TELEGRAPH PRINTER MECHANIC Annette Jorge R N Active * Because of a physical, mental, or emotional condition, do you have difficulty doing errands alone such as visiting a doctor's office or shopping? Answer Date of Assessment Author Status No 10/02/2021 12:38 PM TELEGRAPH PRINTER MECHANIC Annette Jorge R N Active documented as of this encounter Mental Status * Because of a physical, mental, or emotional condition, do you have serious difficulty concentrating, remembering, or making decisions? Answer Entry Date Author Status No 10/02/2021 12:38 PM TELEGRAPH PRINTER MECHANIC Annette Jorge, R N Active documented in this encounter Plan of Treatment Upcoming Encounters Date Type Department Care Team (Late st Contact Info) Description 01/27/2025 7:00 AM CDT Office Visit [facility] Family & Internal Medicine [facility] [id number] [place] [phone] Ilir Nelson PA [address] [place] [phone] 10/22/2025 9:15 AM TELEGRAPH PRINTER MECHANIC Office Visit [facility] [phone] Mily Gan MD [address] [phone] documented as of this encounter Goals Goal Patient Goal Type Associated Problems Recent Progress Patient-Stated? Author Establish Plan for Symptom Monitoring General No Jesi Cochran, RN Monitor - demonstrates appropriate technique of care of indwelling urinary catheter and new ostomy General No Jesi Cochran RN Patient will return to prior living situation and remain independent in ADLs upon discharge from hospital [facility] No Aliya Stokes RN documented as of this encounter Visit Diagnoses Not on filedocumented in this encounter Additional Health Concerns Assessment Noted Time PHQ-9 Depression Total Score: 0 01/24/20 8:04 AM CDT documented as of this encounter Care Teams Director Of Science Relationship Specialty Start Date End Date Lorie Chan MD PCP - General INTERNAL MEDICINE 01/15/20 02/09/23 documented as of this encounter
--- OUTSIDE RECORDS SUMMARY | 2024-11-02 07:56 | XMS_ITS | Encounter Summary ---
Author Organization [facility] Address [address] [place] [address]. [place], [place] [address] [place] [address] Care Team Providers Care Prefitter Doors Name Role Phone AkashCandis hedrick BETTY Primary Care Provider Encounter Details Date Type Department Care Team (Latest Contact Info) Description 03/08/2023 Scan HEALTH INFO SRVCS Scanned, Doc Med [...] on file Legal Sex Male 9:58 PM LICENSED PRACTICAL NURSE CLINIC NURSE Gender Identity Not on file Sexual Orientation Not on file documented as of this encounter Functional Status * RETIRED Are you deaf or do you have serious difficulty hearing Answer Date of Assessment Author Status No 10/02/2021 12:38 PM LICENSED PRACTICAL NURSE CLINIC NURSE Acti ve * RETIRED Are you blind or do you have serious difficulty seeing, even when wearing glasses? Answer Date of Assessment Author Status No 10/02/2021 12:38 PM LICENSED PRACTICAL NURSE CLINIC NURSE Actmonique ve * Do you have serious difficulty walking or climbing stairs? Answer Date of Assessment Author Status No 10/02/2021 12:38 PM LICENSED PRACTICAL NURSE CLINIC NURSE Annette Jorge R N Active * Do you have difficulty dressing or bathing? Answer Date of Assessment Author Status No 10/02/2021 12:38 PM LICENSED PRACTICAL NURSE CLINIC NURSE Annette Jorge R N Active * Because of a physical, mental, or emotional condition, do you have difficulty doing errands alone such as visiting a doctor's office or shopping? Answer Date of Assessment Author Status No 10/02/2021 12:38 PM LICENSED PRACTICAL NURSE CLINIC NURSE Annette Jorge R N Active documented as of this encounter Mental Status * Because of a physical, mental, or emotional condition, do you have serious difficulty concentrating, remembering, or making decisions? Answer Entry Date Author Status No 10/02/2021 12:38 PM LICENSED PRACTICAL NURSE CLINIC NURSE Annette Jorge R N Active documented in this encounter Plan of Treatment Upcoming Encounters Date Type Department Care Team (Late st Contact Info) Description 01/27/2025 7:00 AM CDT Office Visit [facility] Family & Internal Medicine [facility] [address] [place] [address] Ilir Nelson PA [address] [place] [phone] 10/22/2025 9:15 AM LICENSED PRACTICAL NURSE CLINIC NURSE Office Visit [facility] [address] Mily Gan MD [address] [address] documented as of this encounter Goals Goal Patient Goal Type Associated Problems Recent Progress Patient-Stated? Author Establish Plan for Symptom Monitoring General No Jesi Cochran RN Monitor - demonstrates appropriate technique of care of indwelling urinary catheter and new ostomy General No Jesi Cochran RN Patient will return to prior living situation and remain independent in ADLs upon discharge from hospital General No Ben Stokesa M, RN documented as of this encounter Visit Diagnoses Not on filedocumented in this encounter Additional Health Concerns Assessment Noted Time PHQ-9 Depression Total Score: 0 01/24/20 8:04 AM CDT documented as of this encounter Care Teams Prefitter Doors Relationship Specialty [place] [address] [facility] [address] [place] [address] PCP - General Nurse Practitioner Family 02/10/2301/04 documented as of this encounter
--- OUTSIDE RECORDS SUMMARY | 2024-11-02 07:57 | XMS_ITS | Encounter Summary ---
Author Organization [facility] Address [address] [place] [address]. [place], [place] [address] [place] [address] Care Team Providers Care Claims Account Specialist Name Role Phone Lorie Chan MD Primary Care Provider [phone] Encounter Details Date Type Department Care Team (Latest Contact Info) Description 08/25/2022 Scan HEALTH INFO SRVCS Scanned, Doc Med [...] Frequency of Binge Drinking Not on file 0 07/2021 PHQ-2 Answer Date Recorded PHQ-2 Score - If the patient scores above 3, please move on to questions 3-9 0 07/25/2022 Sex and Gender Information Value Date Recorded Sex Assigned at Not on file Legal Sex Male 9:58 PM BRASS PLATER Gender Identity Not on file Sexual Orientation Not on file documented as of this encounter Functional Status * RETIRED Are you deaf or do you have serious difficulty hearing Answer Date of Assessment Author Status No 10/02/2021 12:38 PM BRASS PLATER Acti ve * RETIRED Are you blind or do you have serious difficulty seeing, even when wearing glasses? Answer Date of Assessment Author Status No 10/02/2021 12:38 PM BRASS PLATER Acti ve * Do you have serious difficulty walking or climbing stairs? Answer Date of Assessment Author Status No 10/02/2021 12:38 PM BRASS PLATER Annette Jorge R N Active * Do you have difficulty dressing or bathing? Answer Date of Assessment Author Status No 10/02/2021 12:38 PM BRASS PLATER Annette Jorge R N Active * Because of a physical, mental, or emotional condition, do you have difficulty doing errands alone such as visiting a doctor's office or shopping? Answer Date of Assessment Author Status No 10/02/2021 12:38 PM BRASS PLATER Annette Jorge R N Active documented as of this encounter Mental Status * Because of a physical, mental, or emotional condition, do you have serious difficulty concentrating, remembering, or making decisions? Answer Entry Date Author Status No 10/02/2021 12:38 PM BRASS PLATER Annette Jorge R N Active documented in this encounter Plan of Treatment Upcoming Encounters Date Type Department Care Team (Late st Contact Info) Description 01/27/2025 7:00 AM CDT Office Visit [facility] Family & Internal Medicine [facility] [address] [place] [address] [place] [address] [place], [place] [phone] 10/22/2025 9:15 AM BRASS PLATER Office Visit [facility] [address] Mily Gan MD [address] [address] documented as of this encounter Goals Goal Patient Goal Type Associated Problems Recent Progress Patient-Stated? Author Establish Plan for Symptom Monitoring General Jesi Ye RN Monitor - demonstrates appropriate technique of care of indwelling urinary catheter and new ostomy General No Bernardini, Jesi J, RN Patient will return to prior living situation and remain independent in ADLs upon discharge from [facility] Aliya Sotelo RN documented as of this encounter Visit Diagnoses Not on filedocumented in this encounter Additional Health Concerns Assessment Noted Time PHQ-9 Depression Total Score: 1 01/12/20 22 8:53 AM BRASS PLATER documented as of this encounter Care Teams Claims Account Specialist Relationship Specialty Start Date End Date Lorie Chan MD PCP - General INTERNAL MEDICINE 01/15/20 02/09/23 documented as of this encounter
--- OUTSIDE RECORDS SUMMARY | 2024-11-02 07:57 | XMS_ITS | Encounter Summary ---
Author Organization [facility] Address [address] [place] [address]. [place], [place] [address] [place] [address] Care Team Providers Care Box Cutter Name Role Phone Lorie Chan MD Primary Care Provider [phone] Reason for Visit * Reason Comments Shoulder Pain PT Evaluation * Physical Therapy (Routine) - Closed Specialty Diagnoses / Procedures Referred By Shelby jama Referred To Contact PHYSICAL THERAPY / [facility] Physical Therapy Diagnoses Pain in left shoulder Procedures Burak Garcia MD [address] [place] [address] Phone: tel: [place]: [place] [address] [place] [address] Phone: tel: fax: Referral ID Status Reason Start Date Expiration Date Visits Re quested Visits Authorized [id number] Closed 01/16/2023 01/17/2024 99 [phone] Encounter Details Date Type Department Care Team (Latest Contact Info) Description 01/16/2023 5:45 PM CDT - 01/16/2023 11:59 PM CDT Hospital Encounter [facility] [address] [place], [place] [phone] [place] [address] [place] [address] Shoulder Pain (PT Evaluation ) Discharge Disposition: Home or Self Care (Routine [...] on file Legal Sex Male 9:58 PM CONSTRUCTION JOB [employer]ITLES Gender Identity Not on file [...] Assessment Author Status No 10/02/2021 12:38 PM CONSTRUCTION JOB TITLES Acti ve * RETIRED Are you blind or do you have serious difficulty seeing, even when wearing glasses? Answer Date of Assessment Author Status No 10/02/2021 12:38 PM CONSTRUCTION JOB TITLES Acti ve * Do you have serious difficulty walking or climbing stairs? Answer Date of Assessment Author Status No 10/02/2021 12:38 PM CONSTRUCTION JOB TITLES Annette Jorge R N Active * Do you have difficulty dressing or bathing? Answer Date of Assessment Author Status No 10/02/2021 12:38 PM CONSTRUCTION JOB TITLES Annette Jorge R N Active * Because of a physical, mental, or emotional condition, do you have difficulty doing errands alone such as visiting a doctor's office or shopping? Answer Date of Assessment Author Status No 10/02/2021 12:38 PM CONSTRUCTION JOB TITLES Annette Jorge R N Active documented as of this encounter Mental Status * Because of a physical, mental, or emotional condition, do you have serious difficulty concentrating, remembering, or making decisions? Answer Entry Date Author Status No 10/02/2021 12:38 PM Annette Mercer R N Active documented in this encounter Discharge Instructions * Patient Instructions* Sterling Michael, PT - 01/16/2023 5:45 PM CDT Access Code: [email or web address] URL: [email or web address] Date: 01/17/2023 Prepared by: [place] Exercises Supine Shoulder Flexion Extension AAROM with Dowel - 1 x daily - 5 x weekly - 2- 3 sets - 10 reps Standing Shoulder External Rotation with Resistance - 1 x daily - 5 x weekly - 2-3 sets - 10 reps Standing Shoulder Flexion to 90 Degrees with Dumbbells - 1 x daily - 5 x weekly - 2-3 sets - 10 reps Scapular Wall Slides - 1 x daily - 5 x weekly - 2-3 sets - 10 reps Prone T - 1 x daily - 5 x weekly - 3 sets - 10-15 reps documented in this encounter Medications at [...] CHOLESTEROL NOT AT GOAL 90 tablet 3 01/24/20 23 buPROPion SR (WELLBUTRIN SR) 150 MG 12 hr tabletIndications:T obacco abuse Take 1 tablet (150 mg total) by mouth every morning. 30 tablet 2 2 01/24/20 23 CPAP SUPPLIESIndications :RANDY on CPAP 1 Units by Does not apply route nightly at bedtime. Mask, tubing & filters 1 Device 3 0 10/09/20 24 metoprolol succinate ER (TOPROL-XL) 25 MG 24 hr tabletIndications:P rimary hypertension Take 2 tablets (50 mg total) by mouth daily. 90 tablet 2 01/24/20 23 tamsulosin (FLOMAX) 0.4 MG CapIndications:BPH with obstruction/lower urinary tract symptoms Take 1 capsule (0.4 mg total) by mouth daily. 30 capsule 3 3 01/24/20 23 vitamin B-12 (CYANOCOBALAMIN) 1000 mcg tablet Take 1 tablet (1,000 mcg total) by mouth daily. 07/25/20 23 documented as of this encounter Progress Notes * Sterling Michael, PT - 01/16/2023 5:45 PM CDT Physical Therapy Evaluation- Shoulder Date: 01/16/23 Referring provider: Burak Mendez MD Patient Name: Natan Patel Patient : 1955 Diagnosis: L shoulder pain, Rotator Cuff Tear Date of Injury/Onset: 1 year Subjective: This patient presents to physical therapy reporting left shoulder pain. Gradual onset of pain over past few years. Reaching prior to injection was painful. Injection January 05, 2023 alleviated pain. Nopain with reaching currently. Prior numbness in left forearm and into middle finger. Tingling sometimes noted in left elbow region. No N or T since injection in left shoulder. No set follow up with Dr. Mendez. History of neck pain and stenosis diagnosis. Pain rated 0-2 / 10 Past Medical History: Past Medical History: Diagnosis Date ??? Arthritis ??? Cervical stenosis of spine ??? Hyperlipidemia ??? Influenza vaccine administered ??? RANDY (obstructive sleep apnea) Past Surgical History: Procedure Laterality Date ??? COLON SURGERY 03/18/2021 colostomy r/t perferation ??? COLON SURGERY 09/22/2021 ??? COLONOSCOPY N/A 2013 ??? COLONOSCOPY N/A 08/13/2021 colonoscopy via rectum and ostomy with polypectomy and biopsy performed by Federico Mayer MD at [facility] OR ??? COLOSTOMY reversable ??? HERNIA REPAIR Right [facility] ??? HERNIA REPAIR Left [facility] ??? NECK/CHEST PROCEDURE UNLISTED Right [facility], re-built right side of neck. ??? SMALL INTESTINE SURGERY bowel rupture ??? TOTAL KNEE ARTHROPLASTY Bilateral ZANA Partial KR, done @ [facility] Current Outpatient Medications Medication Sig ??? Ascorbic Acid (VITAMIN C) 100 MG tablet Take 100 mg by mouth daily. Indications: Vitamin and/orMineral Deficiency ??? aspirin 81 MG chewable tablet Chew 81 mg by mouth nightly at bedtime. Indications: Anticoagulant Therapy ??? atorvastatin (LIPITOR) 40 MG tablet TAKE 1 TABLET NIGHTLY AT BEDTIME. CHANGE FROM PRAVASTATIN DUE TO CHOLESTEROL NOT AT GOAL ??? buPROPion SR (WELLBUTRIN SR) 150 MG 12 hr tablet Take 1 tablet (150 mg total) by mouth every morning. ??? Cholecalciferol (VITAMIN D) 50 MCG (2000 UT) Cap Take 50 mcg by mouth daily. Indications: Vitamin D Deficiency ? ? CPAP SUPPLIES 1 Units by Does not apply route nightly at bedtime. Mask, tubing & filters (Patient taking differently: 1 Units by Does not apply route nightly at bedtime. Indications: RANDY Mask, tubing & filters) ??? metoprolol succinate ER (TOPROL-XL) 25 MG 24 hr tablet Take 2 tablets (50 mg total) by mouth daily. ??? tamsulosin (FLOMAX) 0.4 MG Cap Take 1 capsule (0.4 mg total) by mouth daily. ??? vitamin B-12 (CYANOCOBALAMIN) 1000 mcg tablet Take 1,000 mcg by mouth daily. ??? Vitamin E 400 units Tab Take 400 Units by mouth daily. Indications: Nutritional Support ??? zinc gluconate 50 MG Tab Take 1 tablet by mouth daily. Indications: Nutritional Support Please refer to scanned questionnaire for further subjective history. Objective: Diagnostics: xray Palpation: concordant pain with palpation to supraspinatus insertion Objective findings as indicated with some spaces intentionally left blank: Shoulder AROM AROM PROM PROM MMT/5 MMT/5 Right Left Right Left Right Left Flexion 160 145 with shrug 5 4- Scaption Abduction ER neutral 5 4+ ER 90/90 85 No pain Pain at 80 IR neutral 5 5 IR 90/90 Prone horiz abduction 3+/5 3-/5 Pain at 90/90 ER is eliminated with posterior glide to humeral head at end range ER. Quick DASH Outcome Measure: 20 % disability Assessment: This patient presents with symptoms consistent with diagnosis. This patient received education regarding their injury/condition including but not limited to a home exercise program, anatomy education, and plan of care. This patient verbalized understanding of education. This patient would benefit from skilled physical therapy to maximize functional return to prior status. Mild shrug with active shoulder elevation. Mild scapular winging on L. Injection was significantly beneficial to patient pain and function level. Intervention will focus on development of HEP for ROM, strength and mechanics improvement of L UE. Prognosis: Good Problem List: decreased ROM, decreased strength, self report of disability, impaired movement strategy, pain Plan: Continue physical therapy 1-2 x per week to every other week for 6 weeks per plan of care with tapering as indicated. Treatment provided today: Treatment time: 40 minutes therapeutic exercise- HEP, mechanics education, Initial Evaluation Time: 60 minutes. Total Time: 100 minutes. Treatment plan to be implemented and modified based on symptom change with interventions as indicated including therapeutic exercise, electrical stimulation, neuromuscular re-education, home exerciseprogram, patient education, manual therapy, dry needling as appropriate. Functional deficits and goals: 1. Decreased knowledge of how to manage symptoms independently: GOAL: Patient able to perform individualized home exercise program for independent symptom management within 6 weeks. 2. Limited strength affecting functional activity: GOAL: Patient to increase strength of areas tested to 4/5 or greater to allow return to satisfactory functional level within 6 weeks. 3. Functional/Disability scale shows deficits in activity: GOAL: Patient to improve self report of function by 10% as scored on the selected outcome measure to demonstrate improvement in self report of function within 6 weeks. Sterling Michael PT, DPT,CSCS, C-PS Certified Dry Needling Provider THE PROVIDER, I AM IN AGREEMENT WITH THE STATED THERAPY PLAN OF CARE. Provider Signature: Date: In signing this document, provider certifies that prescribed rehabilitation is a medical necessity. Patient Name: Natan Patel Patient : 1955 Date: 5:56 PM01/16/23 [facility] Department of Outpatient Physical Therapy [address] [place] [address] documented in this encounter Plan of Treatment Upcoming Encounters Date Type Department Care Team (Late st Contact Info) Description 01/27/2025 7:00 AM CDT Office Visit [facility] Group Family & Internal Medicine [facility] [address] [place] [address] [place] [address] [place], [place] [phone] 10/22/2025 9:15 AM CONSTRUCTION JOB TITLES Office Visit [facility] [phone] Mily Gan MD [address] [address] documented as of this encounter Goals Goal [...] Total Score: 1 01/12/20 22 8:53 AM CONSTRUCTION JOB TITLES documented as of this encounter Care Teams Box Cutter Relationship Specialty Start Date End Date Lorie Chan MD PCP - General INTERNAL MEDICINE 01/15/20 02/09/23 documented as of this encounter
--- OUTSIDE RECORDS SUMMARY | 2024-11-02 07:57 | XMS_ITS | Encounter Summary ---
Author Organization [facility] Address [address] [place] [address]. [place] [address] [place] [address] Care Team Providers Care Clay Digger Name Role Phone Lorie Castanon MD Primary Care Provider [phone] Reason for Visit * Reason Onset Date Comments Medication Request 11/11/2022 Encounter Details Date Type Department Care Team (Late st Contact Info) Description 11/11/2022 Telephone [facility] [address] [place] [address] [place] [address] [place] [address] Medication Request Social History Tobacco Use [...] on file Legal Sex Male 9:58 PM PHARMACOLOGIST Gender Identity Not on file Sexual Orientation Not on file documented as of this encounter Functional Status * RETIRED Are you deaf or do you have serious difficulty hearing Answer Date of Assessment Author Status No 10/02/2021 12:38 PM PHARMACOLOGIST Acti ve * RETIRED Are you blind or do you have serious difficulty seeing, even when wearing glasses? Answer Date of Assessment Author Status No 10/02/2021 12:38 PM PHARMACOLOGIST Acti ve * Do you have serious difficulty walking or climbing stairs? Answer Date of Assessment Author Status No 10/02/2021 12:38 PM PHARMACOLOGIST Annette Jorge, R N Active * Do you have difficulty dressing or bathing? Answer Date of Assessment Author Status No 10/02/2021 12:38 PM PHARMACOLOGIST Annette Jorge, R N Active * Because of a physical, mental, or emotional condition, do you have difficulty doing errands alone such as visiting a doctor's office or shopping? Answer Date of Assessment Author Status No 10/02/2021 12:38 PM PHARMACOLOGIST Annette Jorge, R N Active documented as of this encounter Mental Status * Because of a physical, mental, or emotional condition, do you have serious difficulty concentrating, remembering, or making decisions? Answer Entry Date Author Status No 10/02/2021 12:38 PM PHARMACOLOGIST Annette Jorge, R N Active documented in this encounter Progress Notes * Lindsay Adair RN - 12/08/2022 9:39 AM CST Resent script MACOLOGIST * Marilu Epstein LPN - 12/08/2022 9:13 AM CST This script sent to wrong pharm please send to [facility] home delivery please changed in demo pharm preference MACOLOGIST * Lindsay Adair RN - 11/11/2022 4:10 PM CST Script sent MACOLOGIST * Marilu Epstein LPN - 11/11/2022 11:36 AM CST Medication and strength: atorvastatin 40 mg 07/18/22 Dr. Melo Pharmacy: [facility] 30 day supply Call back #: [phone] Last office visit at this office: Last visit with LORIE CASTANON in [facility] was on: 2022 in [facility] Future appointment scheduled: Future Appointments Date Time Provider Department Center 01/23/2023 8:00 AM Lorie Castanon MD [facility] MACOLOGIST documented in this encounter Plan of Treatment Upcoming Encounters Date Type Department Care Team (Late st Contact Info) Description 01/27/2025 7:00 AM CDT Office Visit [facility] Medical [facility] [address] [place] [address] Ilir Nelson PA [address] [place] [address] 10/22/2025 9:15 AM PHARMACOLOGIST Office Visit [facility] [address] Mily Gan MD [address] [phone] documented as of this encounter Goals Goal [...] encounter Visit Diagnoses Diagnosis Mixed hyperlipidemia- Primary documented in this encounter Additional Health Concerns Assessment Noted Time PHQ-9 Depression Total Score: 1 03/08/20 22 8:53 AM PHARMACOLOGIST documented as of this encounter Care Teams Clay Digger Relationship Specialty Start Date End Date Lorie Castanon MD PCP - General INTERNAL MEDICINE 01/15/20 02/09/23 documented as of this encounter
--- OUTSIDE RECORDS SUMMARY | 2024-11-02 07:57 | XMS_ITS | Encounter Summary ---
Author Organization [facility] Address [address] [place] [address]. [place], [place] [id number] [place] [address] Care Team Providers Care Oracle Analyst Name Role Phone Lorie Chan MD Primary Care Provider [phone] Encounter Details Date Type Department Care Team (Latest Contact Info) Description 12/05/2022 Scan HEALTH INFO SRVCS Scanned, Doc Med [...] on file Legal Sex Male 9:58 PM SLAUGHTERER RELIGIOUS RITUAL Gender Identity Not on file Sexual Orientation Not on file documented as of this encounter Functional Status * RETIRED Are you deaf or do you have serious difficulty hearing Answer Date of Assessment Author Status No 10/02/2021 12:38 PM SLAUGHTERER RELIGIOUS RITUAL Acti ve * RETIRED Are you blind or do you have serious difficulty seeing, even when wearing glasses? Answer Date of Assessment Author Status No 10/02/2021 12:38 PM SLAUGHTERER RELIGIOUS RITUAL Acti ve * Do you have serious difficulty walking or climbing stairs? Answer Date of Assessment Author Status No 10/02/2021 12:38 PM SLAUGHTERER RELIGIOUS RITUAL Annette Jorge R N Active * Do you have difficulty dressing or bathing? Answer Date of Assessment Author Status No 10/02/2021 12:38 PM SLAUGHTERER RELIGIOUS RITUAL Annette Jorge R N Active * Because of a physical, mental, or emotional condition, do you have difficulty doing errands alone such as visiting a doctor's office or shopping? Answer Date of Assessment Author Status No 10/02/2021 12:38 PM SLAUGHTERER RELIGIOUS RITUAL Annette Jorge R N Active documented as of this encounter Mental Status * Because of a physical, mental, or emotional condition, do you have serious difficulty concentrating, remembering, or making decisions? Answer Entry Date Author Status No 10/02/2021 12:38 PM SLAUGHTERER RELIGIOUS RITUAL Annette Jorge R N Active documented in this encounter Plan of Treatment Upcoming Encounters Date Type Department Care Team (Late st Contact Info) Description 01/27/2025 7:00 AM CDT Office Visit [facility] Family & Internal Medicine [facility] [address] [place] [address] [place] [address] [place], [place] [phone] 10/22/2025 9:15 AM SLAUGHTERER RELIGIOUS RITUAL Office Visit [facility] [address] Mily Gan MD [address] [address] documented as of this encounter Goals Goal Patient Goal Type Associated Problems Recent Progress Patient-Stated? Author Establish Plan for Symptom Monitoring General Jesi Ye RN Monitor - demonstrates appropriate technique of care of indwelling urinary catheter and new ostomy General No Bernardini, Jesi J, RN Patient will return to prior living situation and remain independent in ADLs upon discharge from [facility] Aliya Sotelo RN documented as of this encounter Visit Diagnoses Not on filedocumented in this encounter Additional Health Concerns Assessment Noted Time PHQ-9 Depression Total Score: 1 01/12/20 22 8:53 AM SLAUGHTERER RELIGIOUS RITUAL documented as of this encounter Care Teams Oracle Analyst Relationship Specialty Start Date End Date Lorie Chan MD PCP - General INTERNAL MEDICINE 01/15/20 02/09/23 documented as of this encounter
--- OUTSIDE RECORDS SUMMARY | 2024-11-02 07:57 | XMS_ITS | Encounter Summary ---
Author Organization [facility] Address [address] [place] [address]. [place] [address] [place] [address] Care Team Providers Care Rubber Molder Name Role Phone Lorie Chan MD Primary Care Provider [phone] Reason for Visit * Reason Onset Date Comments Lab Order 01/13/2023 Encounter Details Date Type Department Care Team (Late st Contact Info) Description 01/13/2023 Telephone [facility] Medical [facility] Family & Internal Medicine [facility] [address] [place] [address] [place] Chan [place] [id number] [place] [address] Lab Order Social History Tobacco Use [...] Frequency of Binge Drinking Not on file 030 07/2021 PHQ-2 Answer Date Recorded PHQ-2 Score - If the patient scores above 3, please move on to questions 3-9 0 07/25/2022 Sex and Gender Information Value Date Recorded Sex Assigned at Not on file Legal Sex Male 9:58 PM REPORT SPECIALIST Gender Identity Not on file Sexual Orientation Not on file documented as of this encounter Functional Status * RETIRED Are you deaf or do you have serious difficulty hearing Answer Date of Assessment Author Status No 10/02/2021 12:38 PM REPORT SPECIALIST Acti ve * RETIRED Are you blind or do you have serious difficulty seeing, even when wearing glasses? Answer Date of Assessment Author Status No 10/02/2021 12:38 PM REPORT SPECIALIST Acti ve * Do you have serious difficulty walking or climbing stairs? Answer Date of Assessment Author Status No 10/02/2021 12:38 PM REPORT SPECIALIST Annette Jorge, R N Active * Do you have difficulty dressing or bathing? Answer Date of Assessment Author Status No 10/02/2021 12:38 PM REPORT SPECIALIST Annette Jorge, R N Active * Because of a physical, mental, or emotional condition, do you have difficulty doing errands alone such as visiting a doctor's office or shopping? Answer Date of Assessment Author Status No 10/02/2021 12:38 PM REPORT SPECIALIST Annette Joreg, R N Active documented as of this encounter Mental Status * Because of a physical, mental, or emotional condition, do you have serious difficulty concentrating, remembering, or making decisions? Answer Entry Date Author Status No 10/02/2021 12:38 PM REPORT SPECIALIST Annette Jorge, R N Active documented in this encounter Progress Notes * Lindsay Adair RN - 01/13/2023 11:31 AM CST Spoke with patient and informed that per review of last office visit note, no labs needed until fall. Patient voiced understanding. RT SPECIALIST * Unique Crawford - 01/13/2023 7:16 AM CST Pt dropped by the office wanting to do routine labs prior to his appt w/DR no orders are in chart he would like a call if Dr is wanting them done prior to appt c/b # [phone] RT SPECIALIST documented in this encounter Plan of Treatment Upcoming Encounters Date Type Department Care Team (Late st Contact Info) Description 01/27/2025 7:00 AM CDT Office Visit [facility] Medical Group Family & Internal Medicine [facility] [address] [place] [address] [place] [address] [place] [address] 10/22/2025 9:15 AM REPORT SPECIALIST Office Visit [facility] [address] [place] [phone] Mily Gan MD [place] [address] [place] [address] documented as of this encounter [...] Total Score: 1 01/12/20 22 8:53 AM REPORT SPECIALIST documented as of this encounter Care Teams Rubber Molder Relationship Specialty Start Date End Date Lorie Chan MD PCP - General INTERNAL MEDICINE 01/15/20 02/09/23 documented as of this encounter
--- OUTSIDE RECORDS SUMMARY | 2024-11-02 07:58 | XMS_ITS | Encounter Summary ---
Author Organization [facility] Address [address] [place] [address]. [place] [address] [place] [address] Care Team Providers Care Plate Grinder Name Role Phone Lorie Chan MD Primary Care Provider [phone] Encounter Details Date Type Department Care Team (Late st Contact Info) Description 08/17/[address] [facility] [address] [place], [place] [id number] Federico Mayer MD [address] [facility] [address] [place] [address] Social History Tobacco Use Types Packs/Day Years [...] on file Legal Sex Male 9:58 PM HOME HEALTH CLINICAL SUPERVISOR Gender Identity Not on file Sexual Orientation Not on file COVID-19 Exposure Response Date Recorded In the last 10 days, have yo u been in contact with someone who was confirmed or suspected to have Coronavirus/COVID-19? No / Unsure 07/25/2022 1:41 PM CDT documented as of this encounter Functional Status * RETIRED Are you deaf or do you have serious difficulty hearing Answer Date of Assessment Author Status No 10/02/2021 12:38 PM HOME HEALTH CLINICAL SUPERVISOR Acti ve * RETIRED Are you blind or do you have serious difficulty seeing, even when wearing glasses? Answer Date of Assessment Author Status No 10/02/2021 12:38 PM HOME HEALTH CLINICAL SUPERVISOR Acti ve * Do you have serious difficulty walking or climbing stairs? Answer Date of Assessment Author Status No 10/02/2021 12:38 PM HOME HEALTH CLINICAL SUPERVISOR Annette Jorge R N Active * Do you have difficulty dressing or bathing? Answer Date of Assessment Author Status No 10/02/2021 12:38 PM HOME HEALTH CLINICAL SUPERVISOR Annette Jorge R N Active * Because of a physical, mental, or emotional condition, do you have difficulty doing errands alone such as visiting a doctor's office or shopping? Answer Date of Assessment Author Status No 10/02/2021 12:38 PM HOME HEALTH CLINICAL SUPERVISOR Annette Jorge R N Active documented as of this encounter Mental Status * Because of a physical, mental, or emotional condition, do you have serious difficulty concentrating, remembering, or making decisions? Answer Entry Date Author Status No 10/02/2021 12:38 PM HOME HEALTH CLINICAL SUPERVISOR Annette Jorge R N Active documented in this encounter Plan of Treatment Upcoming Encounters Date Type Department Care Team (Late st Contact Info) Description 01/27/2025 7:00 AM CDT Office Visit [facility] Family & Internal Medicine - [place] [address] [place] [address] Ilir Nelson PA [address] [place] [phone] 10/22/2025 9:15 AM HOME HEALTH CLINICAL SUPERVISOR Office Visit [facility] [address] Mily Gan MD Three [address] [address] documented as of this encounter Goals Goal [...] as of this encounter Visit Diagnoses Diagnosis Status post Neel procedure ([facility]) Perforated diverticulum documented in this encounter Additional Health Concerns Assessment Noted Time PHQ-9 Depression Total Score: 1 01/12/20 22 8:53 AM HOME HEALTH CLINICAL SUPERVISOR documented as of this encounter Care Teams Plate Grinder Relationship Specialty Start Date End Date Lorie Chan MD PCP - General INTERNAL MEDICINE 01/15/20 02/09/23 documented as of this encounter
--- OUTSIDE RECORDS SUMMARY | 2024-11-02 07:59 | XMS_ITS | Encounter Summary ---
Author Organization [facility] Address [address] [place] [address]. [place], [place] [address] [place] [address] Care Team Providers Care Material Coordinator Name Role Phone Lorie Chan MD Primary Care Provider [phone] Encounter Details Date Type Department Care Team (Latest Contact Info) Description 07/25/2022 Travel Social History Tobacco Use Types Packs/Day [...] on file Legal Sex Male 9:58 PM MILK CONDENSER Gender Identity Not on file Sexual Orientation [...] Assessment Author Status No 10/02/2021 12:38 PM MILK CONDENSER Acti ve * RETIRED Are you blind or do you have serious difficulty seeing, even when wearing glasses? Answer Date of Assessment Author Status No 10/02/2021 12:38 PM MILK CONDENSER Acti ve * Do you have serious difficulty walking or climbing stairs? Answer Date of Assessment Author Status No 10/02/2021 12:38 PM MILK CONDENSER Annette Jorge R N Active * Do you have difficulty dressing or bathing? Answer Date of Assessment Author Status No 10/02/2021 12:38 PM MILK CONDENSER Annette Jorge, R N Active * Because of a physical, mental, or emotional condition, do you have difficulty doing errands alone such as visiting a doctor's office or shopping? Answer Date of Assessment Author Status No 10/02/2021 12:38 PM MILK CONDENSER Annette Jorge R N Active documented as of this encounter Mental Status * Because of a physical, mental, or emotional condition, do you have serious difficulty concentrating, remembering, or making decisions? Answer Entry Date Author Status No 10/02/2021 12:38 PM MILK CONDENSER Annette Jorge, R N Active documented in this encounter Plan of Treatment Upcoming Encounters Date Type Department Care Team (Late st Contact Info) Description 01/27/2025 7:00 AM CDT Office Visit [facility] Medical Group Family & Internal Medicine [address] [address] Ilir Nelson PA [address] [place] [phone] 10/22/2025 9:15 AM MILK CONDENSER Office Visit [facility] [address] Mily Gan MD [address] [address] documented as of this encounter Goals Goal [...] Total Score: 1 01/12/20 22 8:53 AM MILK CONDENSER documented as of this encounter Care Teams Material Coordinator Relationship Specialty Start Date End Date Lorie Chan MD PCP - General INTERNAL MEDICINE 01/15/20 02/09/23 documented as of this encounter
--- OUTSIDE RECORDS SUMMARY | 2024-11-02 08:00 | XMS_ITS | Encounter Summary ---
Author Organization [facility] Address [address] [place] [address]. [place] [address] [place] [address] Care Team Providers Care Percussion Welding Machine Operator Name Role Phone Jeremy Castanon MD Primary Care Provider [phone] Reason for Visit * Reason Comments Postop Followup LAP REVERSAL CORREA (09/22/2022) * Consultation (Routine) - Closed Specialty Diagnoses / Procedures Referred By Shelby jama Referred To Contact SURGERY Diagnoses 3 month follow up (also to discuss colonoscopy) Procedures FOLLOW UP Federico Amador MD [address] [place] [address] Phone: tel: fax: Federico Amador MD [address] [place] [address] Phone: tel: fax: Referral ID Status Reason Start Date Expiration Date Visits Re quested Visits Authorized [id number] Closed 07/23/2021 3 3 Encounter Details Date Type Department Care Team (Late st Contact Info) Description 12/24/2021 2:00 PM CUSTOMER CONSULTING MANAGER Office Visit [facility] Medical Group General Surgery [address], [address] [place] [address] Federico Amador MD [address] [place] [address] Postop Followup (LATRICE CORREA(09/22/2022)) Social History Tobacco Use Types Packs/Day Years [...] please move on to questions 3-9 0 01/12/2021 Sex and Gender Information Value Date Recorded Sex Assigned at Not on file Legal Sex Male 9:58 PM CUSTOMER CONSULTING MANAGER Gender Identity Not on file Sexual Orientation Not on file COVID-19 Exposure Response Date Recorded In the last 10 days, have yo u been in contact with someone who was confirmed or suspected to have Coronavirus/COVID-19? No / Unsure 12/24/2021 1:46 PM CUSTOMER CONSULTING MANAGER documented as of this encounter Last Filed Vital Signs Vital Sign Reading Time Taken Comments Blood Pressure 122/66 12/24/2021 1:57 PM CUSTOMER CONSULTING MANAGER Pulse 76 12/24/2021 1:57 PM CUSTOMER CONSULTING MANAGER Temperature 35.6 ??C (96.1 ??F) 12/24/2021 1:57 PM CS T Respiratory Rate 16 12/24/2021 1:57 PM CUSTOMER CONSULTING MANAGER Oxygen Saturation 98% 12/24/2021 1:57 PM CUSTOMER CONSULTING MANAGER Inhaled Oxygen Concentration - - Weight 77.1 kg (170 lb) 12/24/2021 1:57 PM CUSTOMER CONSULTING MANAGER Height 170.2 cm (5' 7 ) 12/24/2021 1:57 PM CUSTOMER CONSULTING MANAGER Body Mass Index 26.63 12/24/2021 1:57 PM CUSTOMER CONSULTING MANAGER documented in this encounter Functional Status * RETIRED Are you deaf or do you have serious difficulty hearing Answer Date of Assessment Author Status No 10/02/2021 12:38 PM CUSTOMER CONSULTING MANAGER Acti ve * RETIRED Are you blind or do you have serious difficulty seeing, even when wearing glasses? Answer Date of Assessment Author Status No 10/02/2021 12:38 PM CUSTOMER CONSULTING MANAGER Aniya ve * Do you have serious difficulty walking or climbing stairs? Answer Date of Assessment Author Status No 10/02/2021 12:38 PM CUSTOMER CONSULTING MANAGER Annette Jorge R N Active * Do you have difficulty dressing or bathing? Answer Date of Assessment Author Status No 10/02/2021 12:38 PM CUSTOMER CONSULTING MANAGER Annette Jorge R N Active * Because of a physical, mental, or emotional condition, do you have difficulty doing errands alone such as visiting a doctor's office or shopping? Answer Date of Assessment Author Status No 10/02/2021 12:38 PM CUSTOMER CONSULTING MANAGER Annette Jorge R N Active documented as of this encounter Mental Status * Because of a physical, mental, or emotional condition, do you have serious difficulty concentrating, remembering, or making decisions? Answer Entry Date Author Status No 10/02/2021 12:38 PM CUSTOMER CONSULTING MANAGER Annette Jorge R N Active documented in this encounter Progress Notes * Federico Amador MD - 12/24/2021 2:00 PM CST Reason for Visit: Postop Followup (LAP REVERSAL CORREA(09/22/2022)) History of Present Illness: Natan Patel is a 66-year-old male status post laparoscopic reversal of Correa's on September 22, 2021. He is doing well and denies any issues or concerns whatsoever. He is eating well, voiding, having bowel movements, denies any abdominal pain or beverages or any pertinent issues or concerns. I have reviewed the past medical, surgical, social and family histories. ROS: Review of Systems Constitutional: Negative. HENT: Negative. Eyes: Negative. Respiratory: Negative. Cardiovascular: Negative. Gastrointestinal: Negative. Genitourinary: Negative. Musculoskeletal: Negative. Skin: Negative. Neurological: Negative. Endo/Heme/Allergies: Negative. Psychiatric/Behavioral: Negative. Medications: Current Outpatient Medications: ??? Ascorbic Acid (VITAMIN C) 100 MG tablet, Take 100 mg by mouth daily. Indications: Vitamin and/or Mineral Deficiency, Disp: , Rfl: ??? aspirin 81 MG chewable tablet, Chew 81 mg by mouth nightly at bedtime. Indications: Anticoagulant Therapy , Disp: , Rfl: ??? atorvastatin 40 MG tablet, TAKE 1 TABLET NIGHTLY AT BEDTIME- CHANGE FROM PRAVASTATIN LOW DENSITY LIPOPROTEIN CHOLESTEROL NOT TO GOAL, Disp: 90 tablet, Rfl: 1 ??? Cholecalciferol (VITAMIN D) 50 MCG (2000 UT) Cap, Take 50 mcg by mouth daily. Indications: Vitamin D Deficiency , Disp: , Rfl: ? ? CPAP SUPPLIES, 1 Units by Does not apply route nightly at bedtime. Mask, tubing & filters (Patient taking differently: 1 Units by Does not apply route nightly at bedtime. Mask, tubing & filters Indications: RANDY), Disp: 1 Device, Rfl: 3 ??? METOPROLOL SUCCINATE ER 50 MG 24 hr tablet, TAKE 1 TABLET(50 MG) BY MOUTH DAILY, Disp: 90 tablet, Rfl: 0 ??? METOPROLOL SUCCINATE ER 50 MG 24 hr tablet, Take 1 tablet (50 mg total) by mouth daily., Disp: 30 tablet, Rfl: 0 ??? simethicone (GAS-X EXTRA STRENGTH) 125 MG chewable tablet, Chew 125 mg by mouth every 6 (six) hours as needed. Indications: Gas Pain, Disp: , Rfl: ??? vitamin B-12 (CYANOCOBALAMIN) 1000 mcg tablet, Take 1,000 mcg by mouth daily., Disp: , Rfl: ??? Vitamin E 400 units Tab, Take 400 Units by mouth daily. Indications: Nutritional Support, Disp:, Rfl: ??? zinc gluconate 50 MG Tab, Take 1 tablet by mouth daily. Indications: Nutritional Support, Disp:, Rfl: Allergies Allergies Allergen Reactions ??? Morphine Itching Past [...] with polypectomy and biopsy performed by Federico Amador MD at [facility] OR ??? COLOSTOMY reversable ??? HERNIA REPAIR Right [facility] ??? HERNIA REPAIR [facility] ??? NECK/CHEST PROCEDURE UNLISTED Right [facility], re-built right side of neck. ??? SMALL INTESTINE SURGERY bowel rupture ??? TOTAL KNEE ARTHROPLASTY Bilateral ZANA Partial KR, done @ [facility] Social History Tobacco Use ??? Smoking status: Current Some Day Smoker Packs/day: 0.25 Types: Cigarettes, Cigars ??? Smokeless tobacco: Never Used ??? Tobacco comment: Has about 1 a day, a couple puffs. Vaping Use ??? Vaping Use: Never used Substance Use Topics ??? Alcohol use: Yes Alcohol/week: 3.3 standard drinks Types: 2 Cans of beer per week Comment: daily ??? Drug use: Never Family History Problem Relation Name Age of Onset ??? Arthritis in Adults Mother ??? Dementia Mother at the end per patient ??? Hypertension Mother ??? Cancer Father ??? Heart Father ??? Heart Disease Father ??? Cancer Brother ??? COPD Brother Physical Exam Vitals and nursing note reviewed. Constitutional: General: He is not in acute distress. Appearance: Normal appearance. He is well-developed. He is not ill-appearing, toxic-appearing or diaphoretic. HENT: Head: Normocephalic and atraumatic. Right Ear: External ear normal. Left Ear: External ear normal. Nose: Nose normal. Eyes: General: No scleral icterus. Right eye: No discharge. Left eye: No discharge. Conjunctiva/sclera: Conjunctivae normal. Cardiovascular: Rate and Rhythm: Normal rate and regular rhythm. Heart sounds: Normal heart sounds. No murmur heard. No friction rub. No gallop. Pulmonary: Effort: Pulmonary effort is normal. No respiratory distress. Breath sounds: Normal breath sounds. No stridor. No wheezing, rhonchi or rales. Chest: Chest wall: No tenderness. Abdominal: General: Bowel sounds are normal. There is no distension. Palpations: Abdomen is soft. There is no mass. Tenderness: There is no abdominal tenderness. There is no guarding or rebound. Hernia: No hernia is present. Comments: Unremarkable abdominal exam Musculoskeletal: General: No tenderness or deformity. Normal range of motion. Cervical back: Normal range of motion and neck supple. Right lower leg: No edema. Left lower leg: No edema. Skin: General: Skin is warm and dry. Neurological: General: No focal deficit present. Mental Status: He is alert and oriented to person, place, and time. Psychiatric: Mood and Affect: Mood normal. Behavior: Behavior normal. Vitals: 12/24/21 1357 Patient Position: Sitting BP Location: Left arm Cuff size: Adult Regular BP: 122/66 Pulse: 76 Body mass index is 26.63 kg/m??. Diagnoses/Impression: 1. Postoperative examination Recommendations and Plan: Natan Patel is a 66-year-old male status post laparoscopic reversal Correa's. Doing well. Back to all activities. Follow-up in 4 months, sooner should the need arise. I spent 20 minutes today reviewing the patient's medical record, obtaining history, performing an exam, documenting in the medical record, counseling and educating the patient/family/caregiver and coordination of care. Federico Amador MD Referring Provider: Dustin PCP: JEREMY CASTANON MD OMER CONSULTING MANAGER documented in this encounter Plan of Treatment Upcoming Encounters Date Type Department Care Team (Late st Contact Info) Description 01/27/2025 7:00 AM CDT Office Visit [facility] Medical Group Family & Internal Medicine [facility] [address] [place] [address] [place] [address] [place], [place] [phone] 10/22/2025 9:15 AM CUSTOMER CONSULTING MANAGER Office Visit [facility] [address] Mily Gan MD [address] [phone] documented as of this encounter Goals Goal Patient Goal Type Associated Problems Recent Progress Patient-Stated? Author Establish Plan for Symptom Monitoring General Jesi Ye RN Monitor - demonstrates appropriate technique of care of indwelling urinary catheter and new ostomy General Jesi Ye RN Patient will return to prior living situation and remain independent in ADLs upon discharge from [facility] Aliya Stokes RN documented as of this encounter Visit Diagnoses Diagnosis Postoperative examination- Primary Follow-up examination, following unspecified surgery documented in this encounter Care Teams Percussion Welding Machine Operator Relationship Specialty Start Date End Date Jeremy Castanon MD PCP - General INTERNAL MEDICINE 01/15/20 02/09/23 documented as of this encounter
--- OUTSIDE RECORDS SUMMARY | 2024-11-02 08:00 | XMS_ITS | Encounter Summary ---
Author Organization [facility] Address [address] [place] [address]. [place] [address] [place] [address] Care Team Providers Care Road Consultant Name Role Phone Lorie Chan MD Primary Care Provider [phone] Reason for Visit * Reason Onset Date Comments Lab Order 07/13/2022 Encounter Details Date Type Department Care Team (Late st Contact Info) Description 07/13/2022 Telephone [facility] Family & Internal Medicine [facility] [address] [place] [address] Lorie Chan [place] [id number] [place] [address] Lab Order Social History Tobacco Use [...] please move on to questions 3-9 0 01/11/2022 Sex and Gender Information Value Date Recorded Sex Assigned at Not on file Legal Sex Male 9:58 PM POCKET STITCHER Gender Identity Not on file Sexual Orientation Not on file documented as of this encounter Functional Status * RETIRED Are you deaf or do you have serious difficulty hearing Answer Date of Assessment Author Status No 10/02/2021 12:38 PM POCKET STITCHER Acti ve * RETIRED Are you blind or do you have serious difficulty seeing, even when wearing glasses? Answer Date of Assessment Author Status No 10/02/2021 12:38 PM POCKET STITCHER Acti ve * Do you have serious difficulty walking or climbing stairs? Answer Date of Assessment Author Status No 10/02/2021 12:38 PM POCKET STITCHER Annette Jorge, R N Active * Do you have difficulty dressing or bathing? Answer Date of Assessment Author Status No 10/02/2021 12:38 PM POCKET STITCHER Annette Jorge, R N Active * Because of a physical, mental, or emotional condition, do you have difficulty doing errands alone such as visiting a doctor's office or shopping? Answer Date of Assessment Author Status No 10/02/2021 12:38 PM POCKET STITCHER Annette Jorge, R N Active documented as of this encounter Mental Status * Because of a physical, mental, or emotional condition, do you have serious difficulty concentrating, remembering, or making decisions? Answer Entry Date Author Status No 10/02/2021 12:38 PM POCKET STITCHER Annette Jorge, R N Active documented in this encounter Progress Notes * Lindsay Adair RN - 07/14/2022 5:01 PM CDT Spoke with patient and informed that he will need fasting labs done. Patient will have done at [facility]. Orders entered. * Lindsay Adair RN - 07/14/2022 4:17 PM CDT Printed for review * Xi Page RN - 07/14/2022 4:[address] Melo pt * Richelle Bass Kalyani - 07/13/2022 11:17 AM CDT Patient called and is asking if he needs to do any lab work before his next appointment which is this coming Monday. Will he need to fast for any labs. Please let patient know. documented in this encounter Plan of Treatment Upcoming Encounters Date Type Department Care Team (Late st Contact Info) Description 01/27/2025 7:00 AM CDT Office Visit [facility] Family & Internal Medicine [facility] [id number] [place] [address] Il[place] Nelson [place] [id number] [place] [address] 10/22/2025 9:15 AM POCKET STITCHER Office Visit [facility] [address] Mily Gan MD [address] [address] documented as of this encounter [...] encounter Results * (ABNORMAL) CBC W/DIFF AUTOMATED (07/15/2022 7:39 AM CDT) WBC 5.4 4.4 - 11.0 x10'3/uL 07/15/2022 7:47 AM CDT [facility] RBC 4.64 4.50 - 5.90 x10'6/uL 07/15/2022 7:47 AM CDT [facility] HGB 15.1 14.0 - 17.5 G/DL 07/15/2022 7:47 AM CDT [facility] HCT 45.1 41.5 - 50.4 % 07/15/2022 7:47 AM CDT [facility] MCV 97.2(H) 80.0 - 96.0 FL 07/15/2022 7:47 AM CDT [facility] MCH 32.5(H) 26.5 - 31.4 PG 07/15/2022 7:47 AM CDT [facility] MCHC 33.5 31.9 - 34.8 G/DL 07/15/2022 7:47 AM T [facility] RDW 12.7 12.3 - 14.3 % 07/15/2022 7:47 AM T [facility] PLT 232 151 - 353 x10'3/uL 07/15/2022 7:47 AM [facility] MPV 11.1 9.7 - 11.9 FL 07/15/2022 7:47 AM T [facility] RBC MORPHOLOGY NORMAL 07/15/2022 7:47 AM T [facility] PLT MORPH. NORMAL 07/15/2022 7:47 AM CDT [facility] WBC MORPHOLOGY NORMAL 07/15/2022 7:47 AM CDT [facility] LYMPHOCYTES % 33.8 15.8 - 45.0 % 07/15/2022 7:47 AM CDT [facility] NEUTROPHILS % 52.0 42.1 - 71.9 % 07/15/2022 7:47 AM CDT [facility] MONOCYTES % 11.4 5.7 - 12.5 % 07/15/2022 7:47 AM CDT [facility] EOSINOPHILS 1.5 0.0 - 5.6 % 07/15/2022 7:47 AM CDT [facility] BASOPHILS 1.1 0.0 - 1.3 % 07/15/2022 7:47 AM CDT [facility] ABS. NEUTROPHILS 2.78 1.40 - 6.00 x10'3/uL 07/15/2022 7:47 AM CDT [facility] IMMATURE GRANS % 0.2 0.0 - 0.5 % 07/15/2022 7:47 AM CDT [facility] ABS. LYMPHOCYTES 1.81 0.80 - 4.70 x10'3/uL 07/15/2022 7:47 AM CDT [facility] 07/15/2022 7:39 AM CDT Lorie Chan MD LABORATORY Final Result [facility] [address] [place] [id number], * COMPREHENSIVE METABOLIC PANEL (07/15/2022 7:39 AM CDT) [facility] GLUCOSE 98 70 - 99 MG/DL 07/15/2022 8:39 AM CDT [facility] BUN 18 7 - 18 MG/DL 07/15/2022 8:39 AM CDT [facility] CREATININE S/P/B 0.74 0.7 - 1.3 MG/DL 07/15/2022 8:39 AM CDT [facility] SODIUM S/P/B 143 136 - 145 MMOL/L 07/15/2022 8:39 AM CDT [facility] POTASSIUM S/P/B 4.4 3.5 - 5.1 MMOL/L 07/15/2022 8:39 AM [facility] CHLORIDE S/P/B 106 100 - 108 MMOL/L 07/15/2022 8:39 AM [facility] CO2 31.4 21 - 32 MMOL/L 07/15/2022 8:39 AM [facility] CALCIUM S/P/B 8.8 8.5 - 10.1 MG/DL 07/15/2022 8:39 AM [facility] BILIRUBIN TOTAL S/P/B 0.8 0.2 - 1.2 MG/DL 07/15/2022 8:39 AM [facility] TOTAL PROTEIN S/P/B 8.0 6.4 - 8.2 G/DL 07/15/2022 8:39 AM [facility] ALBUMIN S/P/B 4.0 3.4 - 5.0 G/DL 07/15/2022 8:39 AM [facility] AST 19 15 - 37 U/L 07/15/2022 8:39 AM [facility] ALT 32 16 - 60 U/L 07/15/2022 8:39 AM [facility] ALKALINE PHOSPHATASE S/P/B 55 50 - 136 U/L 07/15/2022 8:39 AM [facility] ANION GAP 5.6 5 - 15 MMOL/L 07/15/2022 8:39 AM [facility] BUN CREATININE RATIO 24.3 6 - 26 07/15/2022 8:39 AM [facility] A/G RATIO 1.0 1.0 - 2.0 RATIO 07/15/2022 8:39 AM [facility] GFR ESTIMATE >90 >90 ML/MIN/1.7 3 M2 07/15/2022 8:39 AM T [facility] Comment: NOTE: eGFR is not calculated for patients <18 years of age. This is an estimated GFR calculation using the new CKD EPI creatinine equation without race and so does not require a correction factor for race. This estimated GFR should not be used for calculating drug doses. 07/15/2022 7:39 AM CDT us Lorie Chan MD LABORATORY Final Result [facility] [address] [place] [address], * LIPID PANEL (07/15/2022 7:39 AM CDT) CHOLESTEROL 146 <200.0 MG/DL 07/15/2022 8:39 AM [facility] TRIGLYCERIDES 73 <150 MG/DL 07/15/2022 8:39 AM [facility] HDL 51 >40.0 MG/DL 07/15/2022 8:39 AM [facility] LDL (CALCULATED) 80 <100 MG/DL 07/15/20 8:39 AM [facility] NON HDL CHOLESTEROL 95 <130 MG/DL 07/15 8:39 AM [facility] CHOL/HDL RATIO 2.9 0.0 - 4.5 07/15/2022 8:39 AM [facility] VLDL CALCULATION 15 5 - 55 MG/DL 07/15/2022 8:39 AM [facility] LIPID INTERPRETATION 07/15/2022 8:39 AM [facility] Comment: NIH CONCENSUS REPORT [...] ?HDL ?<40 ?--- ?LDL ? >=160 ?>=130 07/15/2022 7:39 AM CDT us Lorie Chan MD LABORATORY Final Result Performing Organization Address [facility]/State/ZIP Co de Phone Number [facility] () [facility] [address] [place] [address], * (ABNORMAL) VITAMIN B12 / FOLATE (07/15/2022 7:39 AM CDT) VITAMIN B12 S/P/B 1,289(H) 193 - 986 PG/ML 07/15/2022 8:39 AM CDT [facility] FOLATE 19.0 8.6 - 58.9 NG/ML 07/15/2022 8:39 AM CDT [facility] 07/15/2022 7:39 AM CDT us Lorie Chna MD LABORATORY Final Result Performing Organization Address City/[facility]/ZIP Co de Phone Number [facility] [address] [place] [address], [place] [phone] * TSH W/REFLEX (07/15/2022 7:39 AM CDT) Pathologist [facility] TSH 1.664 0.358 - 3.74 uIU/ML 07/15/2022 8:39 AM CDT [facility] Comment: HIGH DOSES OF BIOTIN MAY INTERFERE WITH THIS TEST RESULT. CORRELATION TO CLINICAL HISTORY AND PRESENTATION RECOMMENDED. FREE T4 NOT INDICATED 07/15/2022 7:39 AM CDT Lorie Chan MD LABORATORY Final Result Performing Organization Address City/[facility]/ZIP Co de Phone Number [facility] [address] [place] [address], [place] [phone] * PROSTATE SPECIFIC ANTIGEN,SCREENING (07/15/2022 7:39 AM CDT) PSA 0.89 <4.00 NG/ML 07/15/2022 8:12 AM CDT [facility] Comment: Test was performed using the Siemens method. ??Results obtained with other assay methods or kits cannot be used interchangeably with results obtained by the Siemens method. 07/15/2022 7:39 AM CDT Lorie Chan MD LABORATORY Final Result Performing Organization Address [facility] Co de Phone Number [facility] [address] [place] [address], [place] [phone] * VITAMIN D, 25 [place] (07/15/2022 7:39 AM CDT) Pathologist [facility] VITAMIN D 25 HYDROXY S/P/B 46 30 - 100 NG/ML 07/15/2022 8:44 AM CDT [facility] Comment: ? INTERPRETATION ? DEFICIENT ??<20 ? INSUFFICIENT 20-29 ?SUFFICIENT 30-100 07/15/2022 7:39 AM CDT Lorie Chan MD LABORATORY Final Result Performing Organization Address [facility] de Phone Number [facility] [address] [place] [address], [place] [phone] documented in this encounter Visit Diagnoses Diagnosis Mixed hyperlipidemia- Primary Prostate cancer screening Special screening for malignant neoplasm of prostate Vitamin D deficiency Unspecified vitamin D deficiency documented in this encounter Additional Health Concerns Assessment Noted Time PHQ-9 Depression Total Score: 1 01/12/20 22 8:53 AM POCKET STITCHER documented as of this encounter Care Teams Road Consultant Relationship Specialty Start Date End Date Lorie Chan MD PCP - General INTERNAL MEDICINE 01/15/20 02/09/23 documented as of this encounter
--- OUTSIDE RECORDS SUMMARY | 2024-11-02 08:00 | XMS_ITS | Encounter Summary ---
Author Organization [facility] Address [address] [place] [address]. [place], [place] [id number] [place] [address] Care Team Providers Care Poultry Service Technician Name Role Phone Lorie Chan MD Primary Care Provider [phone] Encounter Details Date Type Department Care Team (Latest Contact Info) Description 07/15/2022 Travel Social History Tobacco Use Types Packs/Day [...] on file Legal Sex Male 9:58 PM TWISTHAND Gender Identity Not on file Sexual Orientation Not on file COVID-19 Exposure Response Date Recorded In the last 10 days, have yo u been in contact with someone who was confirmed or suspected to have Coronavirus/COVID-19? No / Unsure 07/15/2022 7:00 AM CDT documented as of this encounter Functional Status * RETIRED Are you deaf or do you have serious difficulty hearing Answer Date of Assessment Author Status No 10/02/2021 12:38 PM TWISTHAND Acti ve * RETIRED Are you blind or do you have serious difficulty seeing, even when wearing glasses? Answer Date of Assessment Author Status No 10/02/2021 12:38 PM TWISTHAND Acti ve * Do you have serious difficulty walking or climbing stairs? Answer Date of Assessment Author Status No 10/02/2021 12:38 PM TWISTHAND Annette Jorge R N Active * Do you have difficulty dressing or bathing? Answer Date of Assessment Author Status No 10/02/2021 12:38 PM TWISTHAND Annette Jorge, R N Active * Because of a physical, mental, or emotional condition, do you have difficulty doing errands alone such as visiting a doctor's office or shopping? Answer Date of Assessment Author Status No 10/02/2021 12:38 PM TWISTHAND Annette Jorge R N Active documented as of this encounter Mental Status * Because of a physical, mental, or emotional condition, do you have serious difficulty concentrating, remembering, or making decisions? Answer Entry Date Author Status No 10/02/2021 12:38 PM TWISTHAND Annette Jroge, R N Active documented in this encounter Plan of Treatment Upcoming Encounters Date Type Department Care Team (Late st Contact Info) Description 01/27/2025 7:00 AM CDT Office Visit [facility] Family & Internal Medicine [address] [address] Ilir Nelson PA [address] [place] [phone] 10/22/2025 9:15 AM TWISTHAND Office Visit [facility] [address] Mily Gan MD [address] [address] documented as of this encounter Goals Goal [...] Total Score: 1 01/12/20 22 8:53 AM TWISTHAND documented as of this encounter Care Teams Poultry Service Technician Relationship Specialty Start Date End Date Lorie Chan MD PCP - General INTERNAL MEDICINE 01/15/20 02/09/23 documented as of this encounter
--- OUTSIDE RECORDS SUMMARY | 2024-11-02 08:00 | XMS_ITS | Encounter Summary ---
Author Organization [facility] Address [address] [place] [address]. [place], [place] [address] [place] [address] Care Team Providers Care Packaging Machine Operator Name Role Phone Lorie Chan MD Primary Care Provider [phone] Encounter Details Date Type Department Care Team (Late st Contact Info) Description 11/02/2021 Orders Only [facility] Family & Internal Medicine [address] [address] Xi Page RN Social History Tobacco Use Types Packs/Day [...] on file Legal Sex Male 9:58 PM PUMP HOUSE OPERATOR Gender Identity Not on file Sexual Orientation Not on file COVID-19 Exposure Response Date Recorded In the last month, have you been in contact with someone who was confirmed or suspected to have Coronavirus / COVID-19? No / Unsure 10/27/2021 1:03 PM PUMP HOUSE OPERATOR documented as of this encounter Functional Status * RETIRED Are you deaf or do you have serious difficulty hearing Answer Date of Assessment Author Status No 10/02/2021 12:38 PM PUMP HOUSE OPERATOR Acti ve * RETIRED Are you blind or do you have serious difficulty seeing, even when wearing glasses? Answer Date of Assessment Author Status No 10/02/2021 12:38 PM PUMP HOUSE OPERATOR Acti ve * Do you have serious difficulty walking or climbing stairs? Answer Date of Assessment Author Status No 10/02/2021 12:38 PM PUMP HOUSE OPERATOR Annette Jorge, R N Active * Do you have difficulty dressing or bathing? Answer Date of Assessment Author Status No 10/02/2021 12:38 PM PUMP HOUSE OPERATOR Annette Jorge, R N Active * Because of a physical, mental, or emotional condition, do you have difficulty doing errands alone such as visiting a doctor's office or shopping? Answer Date of Assessment Author Status No 10/02/2021 12:38 PM PUMP HOUSE OPERATOR Annette Joreg R N Active documented as of this encounter Mental Status * Because of a physical, mental, or emotional condition, do you have serious difficulty concentrating, remembering, or making decisions? Answer Entry Date Author Status No 10/02/2021 12:38 PM PUMP HOUSE OPERATOR Annette Jorge, R N Active documented in this encounter Plan of Treatment Upcoming Encounters Date Type Department Care Team (Late st Contact Info) Description 01/27/2025 7:00 AM CDT Office Visit [facility] Family & Internal Medicine [facility] [address] [place] [address] [place] [address] [place] [address] 10/22/2025 9:15 AM PUMP HOUSE OPERATOR Office Visit [facility] [address] [place] [address] Mily Gan MD [address] [place] [address] documented as of this encounter Goals Goal Patient Goal Type Associated Problems Recent Progress Patient-Stated? Author Establish Plan for Symptom Monitoring Jesi Warner RN Monitor - demonstrates appropriate technique of care of indwelling urinary catheter and new ostomy Jesi Warner RN Patient will return to prior living situation and remain independent in ADLs upon discharge from hospital [facility] Aliya Sotelo RN documented as of this encounter Visit Diagnoses Not on filedocumented in this encounter Care Teams Packaging Machine Operator Relationship Specialty Start Date End Date Lorie Chan MD PCP - General INTERNAL MEDICINE 01/15/20 02/09/23 documented as of this encounter
--- OUTSIDE RECORDS SUMMARY | 2024-11-02 08:00 | XMS_ITS | Encounter Summary ---
Author Organization [facility] Address [address] [place] [address]. [place], [place] [address] [place] [address] Care Team Providers Care Patrol Commander Name Role Phone Lorie Castanon MD Primary Care Provider [phone] Reason for Referral * Consultation (Routine) - Closed Specialty Diagnoses / Procedures Referred By Shelby jama Referred To Contact UROLOGY Diagnoses Nocturia Procedures OFFICE/OUTPT VISIT,NEW,LEVL III OFFICE/OUTPT VISIT,NEW,LEVL IV OFFICE/OUTPT VISIT,NEW,LEVL V OFFICE/OUTPT VISIT,EST,LEVL III OFFICE/OUTPT VISIT,EST,LEVL IV OFFICE/OUTPT VISIT,EST,LEVL V Lorie Castanon MD Phone: tel: fax: Beni Shields MD Phone: tel: fax: Referral ID Status Reason Start Date Expiration Date V isits Requested Visits Authorized [id number] Closed Specialty Services 2022 2023 99 99 Scheduling Instructions Urinary frequency & nocturia, N PSA Reason for Visit * Reason Comments Medication QPA 6 MONTH FOLLOW U P MEDICATION REFILLS Encounter Details Date Type Department Care Team (Late st Contact Info) Description 2022 10:00 AM CDT Office Visit [facility] Family & Internal Medicine [facility] [address] [place] [address] [place] [address] [place] [address] Medication (QPA 6 MONTH FOLLOW UP MEDICATION REFILLS ) Social History Tobacco Use Types Packs/Day [...] on file Legal Sex Male 9:58 PM FINANCIAL WRITER Gender Identity Not on file Sexual Orientation Not on file COVID-19 Exposure Response Date Recorded In the last 10 days, have yo u been in contact with someone who was confirmed or suspected to have Coronavirus/COVID-19? No / Unsure 2022 9:49 AM CDT documented as of this encounter Last Filed Vital Signs Vital Sign Reading Time Taken Comments Blood Pressure 128/80 2022 10:01 AM CDT Pulse 63 2022 10:01 AM CDT Temperature 35.8 ??C (96.4 ??F) 2022 1 0:01 AM CDT Respiratory Rate 16 2022 10:0 1 AM CDT Oxygen Saturation 99% 2022 10: 01 AM CDT Inhaled Oxygen Concentration - - Weight 75.2 kg (165 lb 12.8 oz) 022 10:01 AM CDT Height 170.2 cm (5' 7 ) 2022 10:0 1 AM CDT Body Mass Index 25.97 2022 10:01 AM CDT documented in this encounter Functional Status * RETIRED Are you deaf or do you have serious difficulty hearing Answer Date of Assessment Author Status No 10/02/2021 12:38 PM FINANCIAL WRITER Acti ve * RETIRED Are you blind or do you have serious difficulty seeing, even when wearing glasses? Answer Date of Assessment Author Status No 10/02/2021 12:38 PM FINANCIAL WRITER Acti ve * Do you have serious difficulty walking or climbing stairs? Answer Date of Assessment Author Status No 10/02/2021 12:38 PM FINANCIAL WRITER Annette Jorge R N Active * Do you have difficulty dressing or bathing? Answer Date of Assessment Author Status No 10/02/2021 12:38 PM FINANCIAL WRITER Annette Jorge R N Active * Because of a physical, mental, or emotional condition, do you have difficulty doing errands alone such as visiting a doctor's office or shopping? Answer Date of Assessment Author Status No 10/02/2021 12:38 PM FINANCIAL WRITER Annette Jorge R N Active documented as of this encounter Mental Status * Because of a physical, mental, or emotional condition, do you have serious difficulty concentrating, remembering, or making decisions? Answer Entry Date Author Status No 10/02/2021 12:38 PM FINANCIAL WRITER Annette Jorge R N Active documented in this encounter Progress Notes * Lorie Castanon MD - 2022 10:00 AM CDT Reason for Visit: Medication (QPA 6 MONTH FOLLOW UP MEDICATION REFILLS ) Follow Up Pertinent negatives include no chest pain. 67-year-old [...] ON ATORVASTATIN, No CP, SOB or LOYA. Review of Systems Constitutional: Negative. HENT: Negative. [...] Therapy , Disp: , Rfl: ??? atorvastatin (LIPITOR) 40 MG tablet, TAKE 1 TABLET NIGHTLY AT BEDTIME. CHANGE FROM PRAVASTATIN DUE TO CHOLESTEROL NOT AT GOAL, Disp: 90 tablet, Rfl: 1 ??? buPROPion SR (WELLBUTRIN SR) 150 MG 12 hr tablet, Take 1 tablet (150 mg total) by mouth every morning., Disp: 30 tablet, Rfl: 2 ??? Cholecalciferol (VITAMIN D) 50 MCG (1999 UT) [...] (TOPROL-XL) 25 MG 24 hr tablet, Take 2 tablets (50 mg total) by mouth daily., Disp: 90 tablet, Rfl: 0 ??? vitamin B-12 (CYANOCOBALAMIN) 1000 mcg tablet, Take 1,000 mcg by mouth daily., Disp: , Rfl: ??? Vitamin E 400 units Tab, Take 400 Units by mouth daily. Indications: Nutritional Support, Disp:, Rfl: ??? zinc gluconate 50 MG Tab, Take 1 tablet by mouth daily. Indications: Nutritional Support, Disp:, Rfl: Allergies Allergen Reactions ??? Morphine Itching [...] biopsy performed by Federico Mayer MD at [facility] OR ??? COLOSTOMY reversable ??? HERNIA REPAIR Right [facility] ??? HERNIA REPAIR Left [facility] ??? NECK/CHEST PROCEDURE UNLISTED Right [facility], re-built right side of neck. ??? SMALL INTESTINE SURGERY bowel rupture ??? TOTAL KNEE ARTHROPLASTY Bilateral ZANA Partial KR, done @ [facility] Social History Socioeconomic History ??? Marital status: Tobacco Use ??? Smoking status: Current Some [...] ??? Brother ??? Brother Alive Filed Vitals: 07/18/22 1001 BP: 128/80 Pulse: 63 Resp: 16 Temp: 96.4 ??F (35.8 ??C) TempSrc: Temporal SpO2: 99% Weight: 75.2 kg (165 lb 12.8 oz) Height: 5' 7 (1.702 m) Body mass index is 25.97 kg/m??. Physical Exam Constitutional: Appearance: Normal appearance. [...] cranial nerve deficit. Psychiatric: Judgment: Judgment normal. Latest Reference Range & Units 07/15/22 07:39 SODIUM 136 - 145 MMOL/L 143 POTASSIUM 3.5 - 5.1 MMOL/L 4.4 CHLORIDE S/P/B 100 - 108 MMOL/L 106 CO2 21 - 32 MMOL/L 31.4 ANION GAP 5 - 15 MMOL/L 5.6 BUN 7 - 18 MG/DL 18 CREATININE S/P/B 0.7 - 1.3 MG/DL 0.74 GFR ESTIMATE >90 ML/MIN/1.73 M2 >90 GLUCOSE 70 - 99 MG/DL 98 CALCIUM 8.5 - 10.1 MG/DL 8.8 TOTAL PROTEIN S/P/B 6.4 - 8.2 G/DL 8.0 ALBUMIN S/P/B 3.4 - 5.0 G/DL 4.0 BILIRUBIN TOTAL S/P/B 0.2 - 1.2 MG/DL 0.8 ALKALINE PHOSPHATASE S/P/B 50 - 136 U/L 55 AST 15 - 37 U/L 19 ALT 16 - 60 U/L 32 A/G RATIO 1.0 - 2.0 RATIO 1.0 Assessment/PLAN 1. Primary hypertension - metoprolol succinate ER (TOPROL-XL) 25 MG 24 hr tablet; Take 2 tablets (50 mg total) by mouth daily. Dispense: 90 tablet; Refill: 0 2. Mixed hyperlipidemia - atorvastatin (LIPITOR) 40 MG tablet; TAKE 1 TABLET NIGHTLY AT BEDTIME. CHANGE FROM PRAVASTATIN DUE TO CHOLESTEROL NOT AT GOAL Dispense: 90 tablet; Refill: 1 3. Tobacco abuse - buPROPion SR (WELLBUTRIN SR) 150 MG 12 hr tablet; Take 1 tablet (150 mg total) by mouth every morning. Dispense: 30 tablet; Refill: 2 4. Nocturia - Ambulatory referral to Urology COUNSELING: I spent 31 minutes today reviewing the patient's medical record, obtaining history, performing an exam, ordering medications, tests and/or procedures, documenting in the medical record, referring and/or communicating with other health care providers, counseling and educating the patient/family/caregiver. Reviewing and communicating test results & coordination of care. Hyperlipidemia to goal, cont statin & recheck lipids in Continue healthy diet regular exercise and maintain normal body weight Osteoarthritis stable Doing well with his CPAP, good compliance, order supplies. Fu 6 months check labs 1 year Follow up FU 6 MONTHS LORIE CASTANON MD 2022 1:20 PM documented in this encounter Plan of Treatment Upcoming Encounters Date Type Department Care Team (Late st Contact Info) Description 01/27/2025 7:00 AM CDT Office Visit [facility] Family & Internal Medicine [facility] [address] [place] [address] [place] [address] [place], [place] [phone] 10/22/2025 9:15 AM FINANCIAL WRITER [facility] [address] [place] [phone] Mily Gan MD [address] [address] Scheduled Referrals Name Type Priority Associated Diagnoses Orde r Schedule Ambulatory referral to Urology Referral Routine Nocturia Ordered: 2022 documented as of this encounter Goals Goal [...] of this encounter Visit Diagnoses Diagnosis Primary hypertension- Primary Unspecified essential hypertension Mixed hyperlipidemia Tobacco abuse Tobacco use disorder Nocturia documented in this encounter Additional Health Concerns Assessment Noted Time PHQ-9 Depression Total Score: 1 01/12/20 22 8:53 AM FINANCIAL WRITER documented as of this encounter Care Teams Patrol Commander Relationship Specialty Start Date End Date Lorie Castanon MD PCP - General INTERNAL MEDICINE 01/15/20 02/09/23 documented as of this encounter
--- OUTSIDE RECORDS SUMMARY | 2024-11-02 08:00 | XMS_ITS | Encounter Summary ---
Author Organization [facility] Address [address] [place] [address]. [place], [place] [address] [place] [address] Care Team Providers Care Unit Director Name Role Phone Lorie Chan MD Primary Care Provider [phone] Encounter Details Date Type Department Care Team (Latest Contact Info) Description 12/24/2021 Travel Social History Tobacco Use Types Packs/Day [...] on file Legal Sex Male 9:58 PM MARINE FIRER Gender Identity Not on file Sexual Orientation Not on file COVID-19 Exposure Response Date Recorded In the last 10 days, have yo u been in contact with someone who was confirmed or suspected to have Coronavirus/COVID-19? No / Unsure 12/24/2021 1:46 PM MARINE FIRER documented as of this encounter Functional Status * RETIRED Are you deaf or do you have serious difficulty hearing Answer Date of Assessment Author Status No 10/02/2021 12:38 PM MARINE FIRER Acti ve * RETIRED Are you blind or do you have serious difficulty seeing, even when wearing glasses? Answer Date of Assessment Author Status No 10/02/2021 12:38 PM MARINE FIRER Acti ve * Do you have serious difficulty walking or climbing stairs? Answer Date of Assessment Author Status No 10/02/2021 12:38 PM MARINE FIRER Annette Jorge, R N Active * Do you have difficulty dressing or bathing? Answer Date of Assessment Author Status No 10/02/2021 12:38 PM MARINE FIRER Annette Jorge, R N Active * Because of a physical, mental, or emotional condition, do you have difficulty doing errands alone such as visiting a doctor's office or shopping? Answer Date of Assessment Author Status No 10/02/2021 12:38 PM MARINE FIRER Annette Jorge, R N Active documented as of this encounter Mental Status * Because of a physical, mental, or emotional condition, do you have serious difficulty concentrating, remembering, or making decisions? Answer Entry Date Author Status No 10/02/2021 12:38 PM MARINE FIRER Annette Jorge, R N Active documented in this encounter Plan of Treatment Upcoming Encounters Date Type Department Care Team (Late st Contact Info) Description 01/27/2025 7:00 AM CDT Office Visit [facility] Family & Internal Medicine [address] [address] Ilir Nelson PA [address] [place] [address] 10/22/2025 9:15 AM MARINE FIRER Office Visit [facility] [address] Mily Gan MD [address] [address] documented as of this encounter Goals Goal [...] on filedocumented in this encounter Care Teams Unit Director Relationship Specialty Start Date End Date Lorie Chan MD PCP - General INTERNAL MEDICINE 01/15/20 02/09/23 documented as of this encounter
--- OUTSIDE RECORDS SUMMARY | 2024-11-02 08:00 | XMS_ITS | Encounter Summary ---
Author Organization [facility] Address [address] [place] [address]. [place] [address] [place] [address] Care Team Providers Care Sound Technician Name Role Phone Lorie Chan MD Primary Care Provider [phone] Reason for Visit * Reason Onset Date Comments Other 10/28/2021 Encounter Details Date Type Department Care Team (Late st Contact Info) Description 10/28/2021 Telephone [facility] General Surgery [address], [address] [place] [address] Federico Mayer MD [address] [facility] [address] [place] [address] Other Social History Tobacco Use Types Packs/Day Years [...] on file Legal Sex Male 9:58 PM COUNSELOR CAMP Gender Identity Not on file Sexual Orientation Not on file COVID-19 Exposure Response Date Recorded In the last month, have you been in contact with someone who was confirmed or suspected to have Coronavirus / COVID-19? No / Unsure 10/27/2021 1:03 PM COUNSELOR CAMP documented as of this encounter Functional Status * RETIRED Are you deaf or do you have serious difficulty hearing Answer Date of Assessment Author Status No 10/02/2021 12:38 PM COUNSELOR CAMP Acti ve * RETIRED Are you blind or do you have serious difficulty seeing, even when wearing glasses? Answer Date of Assessment Author Status No 10/02/2021 12:38 PM COUNSELOR CAMP Acti ve * Do you have serious difficulty walking or climbing stairs? Answer Date of Assessment Author Status No 10/02/2021 12:38 PM COUNSELOR CAMP Annette Jorge, R N Active * Do you have difficulty dressing or bathing? Answer Date of Assessment Author Status No 10/02/2021 12:38 PM COUNSELOR CAMP Annette Jorge, R N Active * Because of a physical, mental, or emotional condition, do you have difficulty doing errands alone such as visiting a doctor's office or shopping? Answer Date of Assessment Author Status No 10/02/2021 12:38 PM COUNSELOR CAMP Annette Jorge, R N Active documented as of this encounter Mental Status * Because of a physical, mental, or emotional condition, do you have serious difficulty concentrating, remembering, or making decisions? Answer Entry Date Author Status No 10/02/2021 12:38 PM COUNSELOR CAMP Annette Jorge R N Active documented in this encounter Progress Notes * Tyler Caballero MA - 10/28/2021 4:34 PM CST Patient is aware that the medication was called in yesterday. Patient is going to call the pharmacy. SELOR CAMP * Denise Dasilva - 10/28/2021 1:16 PM CST Patient states that he was here yesterday was told that he was to get some medication . As of today, still has no medication ? Would like a phone call. States maybe he mis-understood? [phone] TY SELOR CAMP documented in this encounter Plan of Treatment Upcoming Encounters Date Type Department Care Team (Late st Contact Info) Description 01/27/2025 7:00 AM CDT Office Visit [facility] Family & Internal Medicine - [place] [address] [place] [address] [place] [address] [place] [address] 10/22/2025 9:15 AM COUNSELOR CAMP [facility] [address] [place] [phone] Mily Gan MD [address] [place], [place] [phone] documented as of this encounter Goals Goal [...] on filedocumented in this encounter Care Teams Sound Technician Relationship Specialty Start Date End Date Lorie Chan MD PCP - General INTERNAL MEDICINE 01/15/20 02/09/23 documented as of this encounter
--- OUTSIDE RECORDS SUMMARY | 2024-11-02 08:00 | XMS_ITS | Encounter Summary ---
Author Organization [facility] Address [address] [place] [address]. [place], [place] [address] [place] [address] Care Team Providers Care Bait Packer Name Role Phone Lorie Chan MD Primary Care Provider [phone] Encounter Details Date Type Department Care Team (Latest Contact Info) Description 01/06/2022 7:27 AM PROMOTIONS DIRECTOR - 01/06/2022 11:[address] [facility] Hospital Encounter [facility] [address] [place] [address] [place] [address] [place], [place] [phone] Discharge Disposition: Home or Self Care (Routine [...] please move on to questions 3-9 0 01/04/2022 Sex and Gender Information Value Date Recorded Sex Assigned at Not on file Legal Sex Male 9:58 PM PROMOTIONS DIRECTOR Gender Identity Not on file Sexual Orientation Not on file COVID-19 Exposure Response Date Recorded In the last 10 days, have yo u been in contact with someone who was confirmed or suspected to have Coronavirus/COVID-19? No / Unsure 01/06/2022 7:27 AM PROMOTIONS DIRECTOR documented as of this encounter Functional Status * RETIRED Are you deaf or do you have serious difficulty hearing Answer Date of Assessment Author Status No 10/02/2021 12:38 PM PROMOTIONS DIRECTOR Acti ve * RETIRED Are you blind or do you have serious difficulty seeing, even when wearing glasses? Answer Date of Assessment Author Status No 10/02/2021 12:38 PM PROMOTIONS DIRECTOR Acti ve * Do you have serious difficulty walking or climbing stairs? Answer Date of Assessment Author Status No 10/02/2021 12:38 PM PROMOTIONS DIRECTOR Annette Jorge R N Active * Do you have difficulty dressing or bathing? Answer Date of Assessment Author Status No 10/02/2021 12:38 PM PROMOTIONS DIRECTOR Annette Jorge R N Active * Because of a physical, mental, or emotional condition, do you have difficulty doing errands alone such as visiting a doctor's office or shopping? Answer Date of Assessment Author Status No 10/02/2021 12:38 PM PROMOTIONS DIRECTOR Annette Jorge R N Active documented as of this encounter Mental Status * Because of a physical, mental, or emotional condition, do you have serious difficulty concentrating, remembering, or making decisions? Answer Entry Date Author Status No 10/02/2021 12:38 PM PROMOTIONS DIRECTOR Annette Jorge R N Active documented [...] mouth daily. Indications: Nutritional Support 1 atorvastatin 40 MG tabletIndications:M ixed hyperlipidemia TAKE 1 TABLET NIGHTLY AT BEDTIME- CHANGE FROM PRAVASTATIN LOW DENSITY LIPOPROTEIN CHOLESTEROL NOT TO GOAL 90 tablet 1 1 05/02/20 22 CPAP SUPPLIESIndications :RANDY on CPAP 1 Units by Does not apply route nightly at bedtime. Mask, tubing & filters 1 Device 3 0 10/09/20 24 METOPROLOL SUCCINATE ER 50 MG 24 hr tabletIndications:H TN (hypertension) TAKE 1 TABLET(50 MG) BY MOUTH DAILY 90 tablet 1 01/12/20 22 METOPROLOL SUCCINATE ER 50 MG 24 hr tabletIndications:H TN (hypertension) Take 1 tablet (50 mg total) by mouth daily. 30 tablet 1 01/12/20 22 simethicone (GAS-X EXTRA STRENGTH) 125 MG chewable tabletIndications:G as Pain Chew 125 mg by mouth every 6 (six) hours as needed. Indications: Gas Pain 1 01/12/20 22 vitamin B-12 (CYANOCOBALAMIN) 1000 mcg tablet Take 1 tablet (1,000 mcg total) by mouth daily. 07/25/20 23 documented as of this encounter Plan of Treatment Upcoming Encounters Date Type Department Care Team (Late st Contact Info) Description 01/27/2025 7:00 AM CDT Office Visit [facility] Family & Internal Medicine [facility] [address] [place] [phone] Ilir Nelson PA [address] [place] [phone] 10/22/2025 9:15 AM PROMOTIONS DIRECTOR Office Visit [facility] [address] [place] [phone] Mily Gan MD [address] [place] [address] documented as of this encounter Goals Goal Patient Goal Type Associated Problems Recent Progress Patient-Stated? Author Establish Plan for Symptom Monitoring General Jesi Ye RN Monitor - demonstrates appropriate technique of care of indwelling urinary catheter and new ostomy General Jesi Ye, RN Patient will return to prior living situation and remain independent in ADLs upon discharge from [facility] No Aliya Stokes RN documented as of this encounter Procedures Procedure Name Priority Date/Time Associated Diagnosis Comments COMPREHENSIVE METABOLIC PANEL Routine 01/06/2022 7:50 AM PROMOTIONS DIRECTOR Primary hypertension CBC W/DIFF AUTOMATED Routine 01/06/2022 7:50 AM PROMOTIONS DIRECTOR Primary hypertension documented in this encounter Results * (ABNORMAL) COMPREHENSIVE METABOLIC PANEL (01/06/2022 7:50 AM PROMOTIONS DIRECTOR) [facility] GLUCOSE 102(H) 70 - 99 MG/DL 01/06/2022 8:49 AM [facility] BUN 14 7 - 18 MG/DL 01/06/2022 8:49 AM [facility] CREATININE S/P/B 0.76 0.7 - 1.3 MG/DL 01/06/2022 8:49 AM [facility] SODIUM S/P/B 143 136 - 145 MMOL/L 01/06/2022 8:49 AM [facility] POTASSIUM S/P/B 4.5 3.5 - 5.1 MMOL/L 01/06/2022 8:49 AM [facility] CHLORIDE S/P/B 108 100 - 108 MMOL/L 01/06/2022 8:49 AM [facility] CO2 29.3 21 - 32 MMOL/L 01/06/2022 8:49 AM [facility] CALCIUM S/P/B 8.5 8.5 - 10.1 MG/DL 01/06/2022 8:49 AM [facility] BILIRUBIN TOTAL S/P/B 0.7 0.2 - 1.2 MG/DL 01/06/2022 8:49 AM [facility] TOTAL PROTEIN S/P/B 7.2 6.4 - 8.2 G/DL 01/06/2022 8:49 AM [facility] ALBUMIN S/P/B 3.7 3.4 - 5.0 G/DL 01/06/2022 8:49 AM [facility] AST 28 15 - 37 U/L 01/06/2022 8:49 AM [facility] ALT 40 16 - 60 U/L 01/06/2022 8:49 AM [facility] ALKALINE PHOSPHATASE S/P/B 56 50 - 136 U/L 01/06/2022 8:49 AM [facility] ANION GAP 5.7 5 - 15 MMOL/L 01/06/2022 8:49 AM [facility] BUN CREATININE RATIO 18.4 6 - 26 01/06/2022 8:49 AM [facility] A/G RATIO 1.1 1.0 - 2.0 RATIO 01/06/2022 8:49 AM [facility] EGFR NON-AFR. AMER. >90 >90 ML/MIN/1.7 3 M2 01/06/2022 8:49 AM [facility] EGFR AFR. AMER. >90 >90 ML/MIN/1.7 3 M2 01/06/2022 8:49 AM [facility] Comment: NOTE: eGFR is not calculated for patients <18 years of age. This is an estimated GFR (CKD EPI) and should not be used for calculating drug doses. 01/06/2022 7:50 AM PROMOTIONS DIRECTOR Lorie Chan MD LABORATORY Final Result [facility] [address] [place] [address], [place] [phone] * (ABNORMAL) CBC W/DIFF AUTOMATED (01/06/2022 7:50 AM PROMOTIONS DIRECTOR) WBC 4.8 4.4 - 11.0 x10'3/uL 01/06/2022 8:33 AM [facility] RBC 4.39(L) 4.50 - 5.90 x10'6/uL 01/06/2022 8:33 AM [facility] HGB 14.2 14.0 - 17.5 G/DL 01/06/2022 8:33 AM [facility] HCT 42.2 41.5 - 50.4 % 01/06/2022 8:33 AM [facility] MCV 96.1(H) 80.0 - 96.0 FL 01/06/2022 8:33 AM [facility] MCH 32.3(H) 26.5 - 31.4 PG 01/06/2022 8:33 AM [facility] MCHC 33.6 31.9 - 34.8 G/DL 01/06/2022 8:33 AM [facility] RDW 13.2 12.3 - 14.3 % 01/06/2022 8:33 AM [facility] PLT 245 151 - 353 x10'3/uL 01/06/2022 8:33 AM [facility] MPV 10.7 9.7 - 11.9 FL 01/06/2022 8:33 AM [facility] RBC MORPHOLOGY NORMAL 01/06/2022 8:33 AM [facility] PLT MORPH. NORMAL 01/06/2022 8:33 AM [facility] WBC MORPHOLOGY NORMAL 01/06/2022 8:33 AM [facility] LYMPHOCYTES % 35.3 15.8 - 45.0 % 01/06/2022 8:33 AM [facility] NEUTROPHILS % 50.0 42.1 - 71.9 % 01/06/2022 8:33 AM [facility] MONOCYTES % 11.5 5.7 - 12.5 % 01/06/2022 8:33 AM [facility] EOSINOPHILS 1.7 0.0 - 5.6 % 01/06/2022 8:33 AM [facility] BASOPHILS 1.3 0.0 - 1.3 % 01/06/2022 8:33 AM [facility] ABS. NEUTROPHILS 2.40 1.40 - 6.00 x10'3/uL 01/06/2022 8:33 AM [facility] IMMATURE GRANS % 0.2 0.0 - 0.5 % 01/06/2022 8:33 AM [facility] ABS. LYMPHOCYTES 1.69 0.80 - 4.70 x10'3/uL 01/06/2022 8:33 AM [facility] 01/06/2022 7:50 AM PROMOTIONS DIRECTOR Lorie Chan MD LABORATORY Final Result [facility] [address] [place] [address], documented in this encounter Visit Diagnoses Diagnosis Primary hypertension Unspecified essential hypertension documented in this encounter Additional Health Concerns Assessment Noted Time PHQ-9 Depression Total Score: 0 01/05/20 22 12:19 PM PROMOTIONS DIRECTOR documented as of this encounter Care Teams Bait Packer Relationship Specialty Start Date End Date Lorie Chan MD PCP - General INTERNAL MEDICINE 01/15/20 02/09/23 documented as of this encounter
--- OUTSIDE RECORDS SUMMARY | 2024-11-02 08:00 | XMS_ITS | Encounter Summary ---
Author Organization [facility] Address [address] [place] [address]. [place], [place] [address] [place] [address] Care Team Providers Care Book Or Script Editor Name Role Phone Lorie Chan MD Primary Care Provider [phone] Encounter Details Date Type Department Care Team (Latest Contact Info) Description 01/11/2022 Travel Social History Tobacco Use Types Packs/Day [...] on file Legal Sex Male 9:58 PM SIMPLEX OPERATOR Gender Identity Not on file Sexual Orientation Not on file COVID-19 Exposure Response Date Recorded In the last 10 days, have yo u been in contact with someone who was confirmed or suspected to have Coronavirus/COVID-19? No / Unsure 01/11/2022 8:25 AM SIMPLEX OPERATOR documented as of this encounter Functional Status * RETIRED Are you deaf or do you have serious difficulty hearing Answer Date of Assessment Author Status No 10/02/2021 12:38 PM SIMPLEX OPERATOR Acti ve * RETIRED Are you blind or do you have serious difficulty seeing, even when wearing glasses? Answer Date of Assessment Author Status No 10/02/2021 12:38 PM SIMPLEX OPERATOR Acti ve * Do you have serious difficulty walking or climbing stairs? Answer Date of Assessment Author Status No 10/02/2021 12:38 PM SIMPLEX OPERATOR Annette Jorge, R N Active * Do you have difficulty dressing or bathing? Answer Date of Assessment Author Status No 10/02/2021 12:38 PM SIMPLEX OPERATOR Annette Jorge, R N Active * Because of a physical, mental, or emotional condition, do you have difficulty doing errands alone such as visiting a doctor's office or shopping? Answer Date of Assessment Author Status No 10/02/2021 12:38 PM SIMPLEX OPERATOR Annette Jorge, R N Active documented as of this encounter Mental Status * Because of a physical, mental, or emotional condition, do you have serious difficulty concentrating, remembering, or making decisions? Answer Entry Date Author Status No 10/02/2021 12:38 PM SIMPLEX OPERATOR Annette Jorge, R N Active documented in this encounter Plan of Treatment Upcoming Encounters Date Type Department Care Team (Late st Contact Info) Description 01/27/2025 7:00 AM CDT Office Visit [facility] Family & Internal Medicine [address] [address] Ilir Nelson PA [address] [place] [address] 10/22/2025 9:15 AM SIMPLEX OPERATOR Office Visit [facility] [address] Mily Gan MD [address] [address] documented as of this encounter Goals Goal [...] Total Score: 1 01/12/20 22 8:53 AM SIMPLEX OPERATOR documented as of this encounter Care Teams Book Or Script Editor Relationship Specialty Start Date End Date Lorie Chan MD PCP - General INTERNAL MEDICINE 01/15/20 02/09/23 documented as of this encounter
--- OUTSIDE RECORDS SUMMARY | 2024-11-02 08:00 | XMS_ITS | Encounter Summary ---
Author Organization [facility] Address [address] [place] [address]. [place], [place] [phone] [place] [address] Care Team Providers Care Sap Basis Consultant Name Role Phone Jeremy Castanon MD Primary Care Provider [phone] Reason for Visit * Reason Comments Follow Up 6 MONTH FOLLOW UP / MEDICATIONS / AND OTHER ISSUES Encounter Details Date Type Department Care Team (Late st Contact Info) Description 01/11/2022 8:40 AM SCAFFOLD SETTER Office Visit [facility] Family & Internal Medicine [facility] [id number] [place] [phone] [place] Cast[place] [id number] [place] [phone] Follow Up (6 MONTH FOLLOW UP / MEDICATIONS / AND OTHER ISSUES ) Social History Tobacco Use Types Packs/Day [...] on file Legal Sex Male 9:58 PM SCAFFOLD SETTER Gender Identity Not on file Sexual Orientation Not on file COVID-19 Exposure Response Date Recorded In the last 10 days, have yo u been in contact with someone who was confirmed or suspected to have Coronavirus/COVID-19? No / Unsure 01/11/2022 8:25 AM SCAFFOLD SETTER documented as of this encounter Last Filed Vital Signs Vital Sign Reading Time Taken Comments Blood Pressure 124/64 01/11/2022 8:50 AM SCAFFOLD SETTER Pulse 77 01/11/2022 8:50 AM SCAFFOLD SETTER Temperature 36.3 ??C (97.3 ??F) 01/11/2022 8:50 AM CS T Respiratory Rate 16 01/11/2022 8:50 AM SCAFFOLD SETTER Oxygen Saturation 98% 01/11/2022 8:50 AM SCAFFOLD SETTER Inhaled Oxygen Concentration - - Weight 76.6 kg (168 lb 12.8 oz) 01/11/2022 8:50 AM SCAFFOLD SETTER Height 170.2 cm (5' 7 ) 01/11/2022 8:50 AM SCAFFOLD SETTER Body Mass Index 26.44 01/11/2022 8:50 AM SCAFFOLD SETTER documented in this encounter Functional Status * RETIRED Are you deaf or do you have serious difficulty hearing Answer Date of Assessment Author Status No 10/02/2021 12:38 PM SCAFFOLD SETTER Acti ve * RETIRED Are you blind or do you have serious difficulty seeing, even when wearing glasses? Answer Date of Assessment Author Status No 10/02/2021 12:38 PM SCAFFOLD SETTER Acti ve * Do you have serious difficulty walking or climbing stairs? Answer Date of Assessment Author Status No 10/02/2021 12:38 PM SCAFFOLD SETTER Annette Jorge R N Active * Do you have difficulty dressing or bathing? Answer Date of Assessment Author Status No 10/02/2021 12:38 PM SCAFFOLD SETTER Annette Jorge R N Active * Because [...] documented in this encounter Progress Notes * Jeremy Castanon MD - 01/11/2022 8:40 AM CST Reason for Visit: Follow Up (6 MONTH FOLLOW UP / MEDICATIONS / AND OTHER ISSUES ) Follow Up Pertinent negatives include no chest pain. 66-year-old male here today to discuss lab results His father young of premature coronary artery disease CHF & disseminated throat cancer. sothey had him on pravastatin 80 aspirin and vitamin E Last time he was in hospital he went into A. fib and was treated for this Over the last couple weeks he has started to experience left shoulder pain worse if he moves it in any direction starting to bother him when he sleeps, he is not aware of any overuse trauma and is not falling to injure it Doing well on CPAP He uses this regularly without problems He has arthritis has been taking Osteo Bi-Flex and is happy with how the Meloxicam helps & would like a refill. Hyperlpidemia STABLE ON ATORVASTATIN, No CP, SOB or LOYA. 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 HENT: Negative. Eyes: Negative. Respiratory: Negative. RANDY on CPAP Cardiovascular: Negative. Negative for chest pain. Gastrointestinal: Ostomy reversed scar intact Genitourinary: Positive for frequency. Nocturia Musculoskeletal: Positive for joint pain. Left shoulder pain see HPI Skin: Negative. Neurological: Negative. Psychiatric/Behavioral: Negative. Current Outpatient Medications: ??? amLODIPine 5 MG tablet, Take 1 tablet (5 mg total) by mouth daily., Disp: 90 tablet, Rfl: 1 ??? Ascorbic Acid (VITAMIN C) 100 MG [...] RANDY), Disp: 1 Device, Rfl: 3 ??? vitamin B-12 (CYANOCOBALAMIN) 1000 mcg tablet, [...] biopsy performed by Federico Mayer MD at [facility] OR ??? COLOSTOMY reversable ??? HERNIA REPAIR Right [facility] ??? HERNIA REPAIR Left [facility] ??? NECK/CHEST PROCEDURE UNLISTED Right [facility], re-built right side of neck. ??? SMALL INTESTINE SURGERY bowel rupture ??? TOTAL KNEE ARTHROPLASTY Bilateral ZANA Partial KR, done @ [facility] Social History Socioeconomic History ??? Marital status: Spouse name: Not on file ??? Number of children: Not on file ??? Years of education: Not on file ??? Highest education level: Not on file Occupational History ??? Not on file Tobacco Use ??? Smoking status: Current Some [...] ??? Sexual activity: Not Currently Partners: Female Other Topics Concern ??? Not on file Social History Narrative LIVE AT HOME WITH Social Determinants of Health Financial Resource Strain: Not on file Food Insecurity: Not on file Transportation Needs: Not on file Physical Activity: Not on file Stress: Not on file Social Connections: Not on file Intimate Partner Violence: Not on file Family History Problem Relation Name Age of Onset ??? Arthritis in Adults Mother ??? Dementia Mother at the end per patient ??? Hypertension Mother ??? Cancer Father ??? Heart Father ??? Heart Disease Father ??? Cancer Brother ??? COPD Brother Family Status Relation Name Status ??? Mother ??? Father ??? Brother ??? Brother Alive Filed Vitals: 01/11/22 0850 BP: 124/64 Pulse: 77 Resp: 16 Temp: 97.3 ??F (36.3 ??C) TempSrc: Temporal SpO2: 98% Weight: 76.6 kg (168 lb 12.8 oz) Height: 5' 7 (1.702 m) Body mass index is 26.44 kg/m??. Physical Exam Constitutional: Appearance: Normal appearance. [...] Comments: Ostomy reversal scar intact Musculoskeletal: General: Tenderness present. Cervical back: Neck supple. Comments: Decreased range of motion left shoulder tenderness especially to the anterior bursa Skin: General: Skin is dry. Neurological: Mental Status: He is alert and oriented to person, place, and time. Cranial Nerves: No cranial nerve deficit. Psychiatric: Judgment: Judgment normal. Results for PIPER, MANDIE SIMA ( ) as of 01/11/2022 19:06 Ref. Range 01/06/2022 07:50 SODIUM Latest Ref Range: 136 - 145 MMOL/L 143 POTASSIUM Latest Ref Range: 3.5 - 5.1 MMOL/L 4.5 CHLORIDE S/P/B Latest Ref Range: 100 - 108 MMOL/L 108 CO2 Latest Ref Range: 21 - 32 MMOL/L 29.3 ANION GAP Latest Ref Range: 5 - 15 MMOL/L 5.7 BUN Latest Ref Range: 7 - 18 MG/DL 14 CREATININE S/P/B Latest Ref Range: 0.7 - 1.3 MG/DL 0.76 eGFR Non-Afr. Amer. Latest Ref Range: >90 ML/MIN/1.73 M2 >90 eGFR Afr. Amer. Latest Ref Range: >90 ML/MIN/1.73 M2 >90 GLUCOSE Latest Ref Range: 70 - 99 MG/DL 102 (H) CALCIUM Latest Ref Range: 8.5 - 10.1 MG/DL 8.5 TOTAL PROTEIN S/P/B Latest Ref Range: 6.4 - 8.2 G/DL 7.2 ALBUMIN S/P/B Latest Ref Range: 3.4 - 5.0 G/DL 3.7 BILIRUBIN TOTAL S/P/B Latest Ref Range: 0.2 - 1.2 MG/DL 0.7 ALKALINE PHOSPHATASE S/P/B Latest Ref Range: 50 - 136 U/L 56 AST Latest Ref Range: 15 - 37 U/L 28 ALT Latest Ref Range: 16 - 60 U/L 40 A/G RATIO Latest Ref Range: 1.0 - 2.0 RATIO 1.1 IMPRESSION: 1. No evidence of acute fracture, dislocation or osseus erosion. 2. Normal contour to the humeral head. Osteopenia limits exam. 3. Moderate degenerative change of the AC joint and greater tuberosity. Mild degenerative change ofthe glenohumeral articulation. Ordered By: JEREMY CASTANON Interpreted By: Víctor Jin, 01/11/2022 10:38 AM Assessment/PLAN 1. Primary hypertension - amLODIPine 5 MG tablet; Take 1 tablet (5 mg total) by mouth daily. Dispense: 90 tablet; Refill: 1 2. Left shoulder pain, unspecified chronicity - XR SHOULDER LT MIN 2V; Future Hyperlipidemia to goal, cont statin & recheck lipids in 1 year Continue healthy diet regular exercise and maintain normal body weight Osteoarthritis will give him meloxicam and he is doing well on this & requests a refills Check an x-ray of his shoulder consider physical therapy or referral to Ortho Doing well with his CPAP, good compliance, order supplies. Fu 6 months check bmp if not done by other specialist in spring and all labs in 1 year Follow up FU 6 MONTHS JEREMY CASTANON MD 01/11/2022 7:06 PM FOLD SETTER documented in this encounter Plan of Treatment Upcoming Encounters Date Type Department Care Team (Late st Contact Info) Description 01/27/2025 7:00 AM CDT Office Visit [facility] Family & Internal Medicine [facility] [id number] [place] [phone] [place] [address] [place], [place] [phone] 10/22/2025 9:15 AM SCAFFOLD SETTER Office Visit [facility] [phone] Mily Gan MD [address] [phone] documented as of this encounter Goals Goal [...] documented as of this encounter Results * XR SHOULDER LT MIN 2V (01/11/2022 10:34 AM SCAFFOLD SETTER) Anatomical Region Laterality Modality Shoulder Radiographic Leola ging 01/11/2022 10:3 8 AM SCAFFOLD SETTER Impressions 01/11/2022 10:39 AM SCAFFOLD SETTER IMPRESSION: 1. No evidence of acute fracture, dislocation or osseus erosion. 2. Normal contour to the ??humeral head. Osteopenia limits exam. 3. Moderate degenerative change of the ??AC joint and greater tuberosity. Mild degenerative change of the glenohumeral articulation. Ordered By: JEREMY CASTANON Interpreted By: Víctor Jin, 01/11/2022 10:38 AM Narrative 01/11/2022 10:39 AM SCAFFOLD SETTER IMAGING STUDIES: ?XR SHOULDER LT MIN 2V ? DATE: ??01/11/2022 10:27 AM COMPARISON: ??No comparisons. CLINICAL HISTORY: ??SHOULDER PAIN ?? . ?? No history of trauma. Procedure Note Meng Jin MD - 01/11/2022 IMAGING STUDIES: XR SHOULDER LT MIN 2VDATE: 01/11/2022 10:27 AM COMPARISON: No comparisons. CLINICAL HISTORY: SHOULDER PAIN . No history of trauma. IMPRESSION: 1. No evidence of acute fracture, dislocation or osseus erosion. 2. Normal contour to the humeral head. Osteopenia limits exam. 3. Moderate degenerative change of the AC joint and greater tuberosity.Mild degenerative change of the glenohumeral articulation. Ordered By: JEREMY CASTANON Interpreted By: Víctor Jin, 01/11/2022 10:38 AM Jeremy Castanon MD GENERAL IMAGING Final Result documented in this encounter Visit Diagnoses Diagnosis Primary hypertension- Primary Unspecified essential hypertension Left shoulder pain, unspecified chronicity Left shoulder pain, unspecified chronicity documented in this encounter Additional Health Concerns Assessment Noted Time PHQ-9 Depression Total Score: 1 01/12/20 22 8:53 AM SCAFFOLD SETTER documented as of this encounter Care Teams Sap Basis Consultant Relationship Specialty Start Date End Date Jeremy Castanon MD PCP - General INTERNAL MEDICINE 01/15/20 02/09/23 documented as of this encounter
--- OUTSIDE RECORDS SUMMARY | 2024-11-02 08:00 | XMS_ITS | Encounter Summary ---
Author Organization [facility] Address [address] [place] [address]. [place], [place] [address] [place] [address] Care Team Providers Care Hearing Aid Repair Technician Name Role Phone Lorie Chan MD Primary Care Provider [phone] Encounter Details Date Type Department Care Team (Late st Contact Info) Description 01/05/2022 Orders Only [facility] Family & Internal Medicine - [address] [phone] Lorie Chan MD [address] [place] [address] Social History Tobacco Use Types Packs/Day [...] on file Legal Sex Male 9:58 PM PRISM MEASURER Gender Identity Not on file Sexual Orientation Not on file COVID-19 Exposure Response Date Recorded In the last 10 days, have yo u been in contact with someone who was confirmed or suspected to have Coronavirus/COVID-19? No / Unsure 12/24/2021 1:46 PM PRISM MEASURER documented as of this encounter Functional Status * RETIRED Are you deaf or do you have serious difficulty hearing Answer Date of Assessment Author Status No 10/02/2021 12:38 PM PRISM MEASURER Acti ve * RETIRED Are you blind or do you have serious difficulty seeing, even when wearing glasses? Answer Date of Assessment Author Status No 10/02/2021 12:38 PM PRISM MEASURER Acti ve * Do you have serious difficulty walking or climbing stairs? Answer Date of Assessment Author Status No 10/02/2021 12:38 PM PRISM MEASURER Annette Jorge R N Active * Do you have difficulty dressing or bathing? Answer Date of Assessment Author Status No 10/02/2021 12:38 PM PRISM MEASURER Annette Jorge R N Active * Because of a physical, mental, or emotional condition, do you have difficulty doing errands alone such as visiting a doctor's office or shopping? Answer Date of Assessment Author Status No 10/02/2021 12:38 PM PRISM MEASURER Annette Jorge R N Active documented as of this encounter Mental Status * Because of a physical, mental, or emotional condition, do you have serious difficulty concentrating, remembering, or making decisions? Answer Entry Date Author Status No 10/02/2021 12:38 PM PRISM MEASURER Annette Jorge R N Active documented in this encounter Plan of Treatment Upcoming Encounters Date Type Department Care Team (Late st Contact Info) Description 01/27/2025 7:00 AM CDT Office Visit [facility] Family & Internal Medicine - [place] [id number] [place] [phone] Ilir Nelson PA [address] [place] [phone] 10/22/2025 9:15 AM PRISM MEASURER Office Visit [facility] [phone] Mily Gan MD [place] [address] [place] [address] documented as of this encounter [...] as of this encounter Results * (ABNORMAL) COMPREHENSIVE METABOLIC PANEL (01/06/2022 7:50 AM PRISM MEASURER) [facility] GLUCOSE 102(H) 70 - 99 MG/DL 01/06/2022 8:49 AM [facility] BUN 14 7 - 18 MG/DL 01/06/2022 8:49 AM [facility] CREATININE S/P/B 0.76 0.7 - 1.3 MG/DL 01/06/2022 8:49 AM [facility] SODIUM S/P/B 143 136 - 145 MMOL/L 01/06/2022 8:49 AM [facility] POTASSIUM S/P/B 4.5 3.5 - 5.1 MMOL/L 01/06/2022 8:49 AM [facility] CHLORIDE S/P/B 108 100 - 108 MMOL/L 01/06/2022 8:49 AM [facility] CO2 29.3 21 - 32 MMOL/L 01/06/2022 8:49 AM [facility] CALCIUM S/P/B 8.5 8.5 - 10.1 MG/DL 01/06/2022 8:49 AM [facility] BILIRUBIN TOTAL S/P/B 0.7 0.2 - 1.2 MG/DL 01/06/2022 8:49 AM [facility] TOTAL PROTEIN S/P/B 7.2 6.4 - 8.2 G/DL 01/06/2022 8:49 AM [facility] ALBUMIN S/P/B 3.7 3.4 - 5.0 G/DL 01/06/2022 8:49 AM [facility] AST 28 15 - 37 U/L 01/06/2022 8:49 AM [facility] ALT 40 16 - 60 U/L 01/06/2022 8:49 AM [facility] ALKALINE PHOSPHATASE S/P/B 56 50 - 136 U/L 01/06/2022 8:49 AM [facility] ANION GAP 5.7 5 - 15 MMOL/L 01/06/2022 8:49 AM [facility] BUN CREATININE RATIO 18.4 6 - 26 01/06/2022 8:49 AM [facility] A/G RATIO 1.1 1.0 - 2.0 RATIO 01/06/2022 8:49 AM [facility] EGFR NON-AFR. AMER. >90 >90 ML/MIN/1.7 3 M2 01/06/2022 8:49 AM [facility] EGFR AFR. AMER. >90 >90 ML/MIN/1.7 3 M2 01/06/2022 8:49 AM [facility] Comment: NOTE: eGFR is not calculated for patients <18 years of age. This is an estimated GFR (CKD EPI) and should not be used for calculating drug doses. 01/06/2022 7:50 AM PRISM MEASURER us Lorie Chan MD LABORATORY Final Result [facility] [address] [place] [address], [place] [phone] * (ABNORMAL) CBC W/DIFF AUTOMATED (01/06/2022 7:50 AM PRISM MEASURER) [facility] Signature WBC 4.8 4.4 - 11.0 x10'3/uL 01/06/2022 8:33 AM [facility] RBC 4.39(L) 4.50 - 5.90 x10'6/uL 01/06/2022 8:33 AM [facility] HGB 14.2 14.0 - 17.5 G/DL 01/06/2022 8:33 AM [facility] HCT 42.2 41.5 - 50.4 % 01/06/2022 8:33 AM [facility] MCV 96.1(H) 80.0 - 96.0 FL 01/06/2022 8:33 AM [facility] MCH 32.3(H) 26.5 - 31.4 PG 01/06/2022 8:33 AM [facility] MCHC 33.6 31.9 - 34.8 G/DL 01/06/2022 8:33 AM [facility] RDW 13.2 12.3 - 14.3 % 01/06/2022 8:33 AM [facility] PLT 245 151 - 353 x10'3/uL 01/06/2022 8:33 AM [facility] MPV 10.7 9.7 - 11.9 FL 01/06/2022 8:33 AM [facility] RBC MORPHOLOGY NORMAL 01/06/2022 8:33 AM [facility] PLT MORPH. NORMAL 01/06/2022 8:33 AM [facility] WBC MORPHOLOGY NORMAL 01/06/2022 8:33 AM [facility] LYMPHOCYTES % 35.3 15.8 - 45.0 % 01/06/2022 8:33 AM [facility] NEUTROPHILS % 50.0 42.1 - 71.9 % 01/06/2022 8:33 AM [facility] MONOCYTES % 11.5 5.7 - 12.5 % 01/06/2022 8:33 AM [facility] EOSINOPHILS 1.7 0.0 - 5.6 % 01/06/2022 8:33 AM [facility] BASOPHILS 1.3 0.0 - 1.3 % 01/06/2022 8:33 AM [facility] ABS. NEUTROPHILS 2.40 1.40 - 6.00 x10'3/uL 01/06/2022 8:33 AM [facility] IMMATURE GRANS % 0.2 0.0 - 0.5 % 01/06/2022 8:33 AM [facility] ABS. LYMPHOCYTES 1.69 0.80 - 4.70 x10'3/uL 01/06/2022 8:33 AM [facility] 01/06/2022 7:50 AM PRISM MEASURER Lorie hCan MD LABORATORY Final Result [facility] [address] [place] [address], documented in this encounter Visit Diagnoses Diagnosis Primary hypertension- Primary Unspecified essential hypertension documented in this encounter Additional Health Concerns Assessment Noted Time PHQ-9 Depression Total Score: 0 01/05/20 22 12:19 PM PRISM MEASURER documented as of this encounter Care Teams Hearing Aid Repair Technician Relationship Specialty Start Date End Date Lorie Chan MD PCP - General INTERNAL MEDICINE 01/15/20 02/09/23 documented as of this encounter
--- OUTSIDE RECORDS SUMMARY | 2024-11-02 08:00 | XMS_ITS | Encounter Summary ---
Author Organization [facility] Address [address] [place] [address]. [place] [address] [place] [address] Care Team Providers Care Reinforcing Iron And Rebar Workers Name Role Phone Lorie Chan MD Primary Care Provider [phone] Reason for Visit * Reason Onset Date Comments Medication Problem 01/18/2022 Encounter Details Date Type Department Care Team (Late st Contact Info) Description 01/18/2022 Telephone [facility] [address] [place] [address] Lorie Chan MD [id number] [place] [address] Medication Problem Social History Tobacco Use Types [...] on file Legal Sex Male 9:58 PM ECMO SPECIALIST Gender Identity Not on file Sexual Orientation Not on file COVID-19 Exposure Response Date Recorded In the last 10 days, have yo u been in contact with someone who was confirmed or suspected to have Coronavirus/COVID-19? No / Unsure 01/11/2022 8:25 AM ECMO SPECIALIST documented as of this encounter Functional Status * RETIRED Are you deaf or do you have serious difficulty hearing Answer Date of Assessment Author Status No 10/02/2021 12:38 PM ECMO SPECIALIST Acti ve * RETIRED Are you blind or do you have serious difficulty seeing, even when wearing glasses? Answer Date of Assessment Author Status No 10/02/2021 12:38 PM ECMO SPECIALIST Acti ve * Do you have serious difficulty walking or climbing stairs? Answer Date of Assessment Author Status No 10/02/2021 12:38 PM ECMO SPECIALIST Annette Jorge, R N Active * Do you have difficulty dressing or bathing? Answer Date of Assessment Author Status No 10/02/2021 12:38 PM ECMO SPECIALIST Annette Jorge, R N Active * Because of a physical, mental, or emotional condition, do you have difficulty doing errands alone such as visiting a doctor's office or shopping? Answer Date of Assessment Author Status No 10/02/2021 12:38 PM ECMO SPECIALIST Annette Jorge, R N Active documented as of this encounter Mental Status * Because of a physical, mental, or emotional condition, do you have serious difficulty concentrating, remembering, or making decisions? Answer Entry Date Author Status No 10/02/2021 12:38 PM ECMO SPECIALIST Annette Jorge, R N Active documented in this encounter Progress Notes * Lindsay Adair RN - 01/18/2022 3:43 PM CDT Called patient and reviewed all medications. Patient reports that he is not taking Amlodipine, and that he is taking Metoprolol Succinate ER 50mg daily. Dr. Melo aware. * Lindsay Adair RN - 01/18/2022 11:20 AM CDT Called patient and discussed medications ( Amlodipine and Metoprolol). Informed patient Amlodipine is on his med list as a current med and that Metoprolol med appears to have been discontinued. Patient thinks that the wrong med was taken off at his visit the other day. Informed patient that I would discuss with Dr. Melo and call him back. * Niya Mckinley - 01/18/2022 10:51 AM CDT PT CB# [phone]\[facility] PT RECEIVED AMLODIPINE 5MG HE STATES HE DOESN'T TAKE THAT MED ANY LONGER HE STATES HE TAKES METOPROLOL SUCCINATE ER 50MG/90 DAYS SUPPLY PLEASE ADVICE documented in this encounter Plan of Treatment Upcoming Encounters Date Type Department Care Team (Late st Contact Info) Description 01/27/2025 7:00 AM CDT Office Visit [facility] [address] [place] [address] Ilir Nelson [place] [id number] [place] [address] 10/22/2025 9:15 AM ECMO SPECIALIST Office Visit [facility] [address] Mily Gan MD [address] [phone] documented as of this encounter Goals Goal [...] Total Score: 1 01/12/20 22 8:53 AM ECMO SPECIALIST documented as of this encounter Care Teams Reinforcing Iron And Rebar Workers Relationship Specialty Start Date End Date Lorie Chan MD PCP - General INTERNAL MEDICINE 01/15/20 02/09/23 documented as of this encounter
--- OUTSIDE RECORDS SUMMARY | 2024-11-02 08:00 | XMS_ITS | Encounter Summary ---
Author Organization [facility] Address [address] [place] [address]. [place], [place] [id number] [place] [address] Care Team Providers Care Front Desk Coordinator Name Role Phone Lorie Chan MD Primary Care Provider [phone] Encounter Details Date Type Department Care Team (Latest Contact Info) Description 01/06/2022 Travel Social History Tobacco Use Types Packs/Day [...] on file Legal Sex Male 9:58 PM BRUSH CUTTER Gender Identity Not on file Sexual Orientation Not on file COVID-19 Exposure Response Date Recorded In the last 10 days, have yo u been in contact with someone who was confirmed or suspected to have Coronavirus/COVID-19? No / Unsure 01/06/2022 7:27 AM BRUSH CUTTER documented as of this encounter Functional Status * RETIRED Are you deaf or do you have serious difficulty hearing Answer Date of Assessment Author Status No 10/02/2021 12:38 PM BRUSH CUTTER Acti ve * RETIRED Are you blind or do you have serious difficulty seeing, even when wearing glasses? Answer Date of Assessment Author Status No 10/02/2021 12:38 PM BRUSH CUTTER Acti ve * Do you have serious difficulty walking or climbing stairs? Answer Date of Assessment Author Status No 10/02/2021 12:38 PM BRUSH CUTTER Annette Jorge, R N Active * Do you have difficulty dressing or bathing? Answer Date of Assessment Author Status No 10/02/2021 12:38 PM BRUSH CUTTER Annette Jorge, R N Active * Because of a physical, mental, or emotional condition, do you have difficulty doing errands alone such as visiting a doctor's office or shopping? Answer Date of Assessment Author Status No 10/02/2021 12:38 PM BRUSH CUTTER Annette Jorge, R N Active documented as of this encounter Mental Status * Because of a physical, mental, or emotional condition, do you have serious difficulty concentrating, remembering, or making decisions? Answer Entry Date Author Status No 10/02/2021 12:38 PM BRUSH CUTTER Annette Jorge, R N Active documented in this encounter Plan of Treatment Upcoming Encounters Date Type Department Care Team (Late st Contact Info) Description 01/27/2025 7:00 AM CDT Office Visit [facility] Family & Internal Medicine [address] [address] Ilir Nelson PA [address] [place] [address] 10/22/2025 9:15 AM BRUSH CUTTER Office Visit [facility] [address] Mily Gan MD [address] [address] documented as of this encounter Goals Goal [...] Total Score: 0 01/05/20 22 12:19 PM BRUSH CUTTER documented as of this encounter Care Teams Front Desk Coordinator Relationship Specialty Start Date End Date Lorie Chan MD PCP - General INTERNAL MEDICINE 01/15/20 02/09/23 documented as of this encounter
--- OUTSIDE RECORDS SUMMARY | 2024-11-02 08:00 | XMS_ITS | Encounter Summary ---
Author Organization [facility] Address [address] [place] [address]. [place], [place] [address] [place] [address] Care Team Providers Care Commercial Real Estate Agent Name Role Phone Jeremy Castanon MD Primary Care Provider [phone] Reason for Visit * Reason Comments New Patient Wakes up about every hour to urinate Feels relieved after voiding every time. * Consultation (Routine) - Closed Specialty Diagnoses / Procedures Referred By Contac t Referred To Contact UROLOGY Diagnoses Nocturia Procedures OFFICE/OUTPT VISIT,NEW,LEVL III OFFICE/OUTPT VISIT,NEW,LEVL IV OFFICE/OUTPT VISIT,NEW,LEVL V OFFICE/OUTPT VISIT,EST,LEVL III OFFICE/OUTPT VISIT,EST,LEVL IV OFFICE/OUTPT VISIT,EST,LEVL V Jeremy Castanon MD Phone: tel: fax: Beni Shields MD Phone: tel: fax: Referral ID Status Reason Start Date Expiration Date V isits Requested Visits Authorized [id number] Closed Specialty Services 2022 2023 99 99 Encounter Details Date Type Department Care Team (Latest Contact Info) Description 07/25/2022 1:40 PM CDT Office Visit [facility] Multispecialty Care - [address], [address] [place] [phone] Selena Harper NP [address] [place] [address] New Patient (Wakes up about every hour to urinate /Feels relieved after voiding every time. ) Social History Tobacco Use Types Packs/Day [...] on file Legal Sex Male 9:58 PM CHAR FILTER TANK TENDER Gender Identity Not on file Sexual Orientation Not on file COVID-19 Exposure Response Date Recorded In the last 10 days, have yo u been in contact with someone who was confirmed or suspected to have Coronavirus/COVID-19? No / Unsure 07/25/2022 1:41 PM CDT documented as of this encounter Last Filed Vital Signs Vital Sign Reading Time Taken Comments Blood Pressure 97/66 07/25/2022 2:08 PM CDT Pulse 76 07/25/2022 2:08 PM CDT Temperature 36.6 ??C (97.8 ??F) 07/25/2022 2:08 PM CD T Respiratory Rate - - Oxygen Saturation 96% 07/25/2022 2:08 PM CDT Inhaled Oxygen Concentration - - Weight 76.2 kg (168 lb) 07/25/2022 2:08 PM CDT Height - - Body Mass Index 26.31 2022 10:01 AM CDT documented in this encounter Functional Status * RETIRED Are you deaf or do you have serious difficulty hearing Answer Date of Assessment Author Status No 10/02/2021 12:38 PM CHAR FILTER TANK TENDER Acti ve * RETIRED Are you blind or do you have serious difficulty seeing, even when wearing glasses? Answer Date of Assessment Author Status No 10/02/2021 12:38 PM CHAR FILTER TANK TENDER Acti ve * Do you have serious difficulty walking or climbing stairs? Answer Date of Assessment Author Status No 10/02/2021 12:38 PM CHAR FILTER TANK TENDER Annette Jorge R Susan Active * Do you have difficulty dressing or bathing? Answer Date of Assessment Author Status No 10/02/2021 12:38 PM CHAR FILTER TANK TENDER Annette Jorge R N Active * Because of a physical, mental, or emotional condition, do you have difficulty doing errands alone such as visiting a doctor's office or shopping? Answer Date of Assessment Author Status No 10/02/2021 12:38 PM CHAR FILTER TANK TENDER Annette Jorge, R N Active documented as of this encounter Mental Status * Because of a physical, mental, or emotional condition, do you have serious difficulty concentrating, remembering, or making decisions? Answer Entry Date Author Status No 10/02/2021 12:38 PM CHAR FILTER TANK TENDER Annette Jorge, R N Active documented in this encounter Patient Instructions * Patient Instructions* Selena Harper NP - 07/25/2022 1:40 PM CDT Resume CPAP, assure proper fit, may consider refitting, ask PCP for referral Restrict fluids 2 hours before bed Avoid bladder irritants of coffee, ice tea, soda, alcohol, spicy foods Water intake goal 60-80oz daily * Attachments The following attachments cannot be sent through Care Everywhere. * Benign Prostatic Hyperplasia (Enlarged Prostate) (Lao) documented in this encounter Progress Notes * Selena Harper NP - 07/25/2022 1:40 PM CDT Patient name: Natan Patel PCP: JEREMY CASTANON MD Date of Visit: 07/25/2022 HPI: Natan Patel is a 67-year-old male who presents for new patient consult for nocturia, LUTS/BPH He has never seen a Urologist, has never taken medications for urination. 03/2021 bowel perforation,had bladder repair. 07/15/22 PSA 0.89. Currently, his most concerning symptom is nocturia. He has RANDY, but has not been using CPAP. He urinates maybe 2 times a day and urinates 2-5 times a night. He consumes 0-1 sodas a day, 0 tea,2-4 coffee. He drinks about 16oz of water daily. He does have a daily bowel movement. Denies fever,nausea, vomiting, dysuria, gross hematuria, urinary frequency, new or unusual bony pain of any kind, unintentional weight loss. Denies history of UTI, renal failure, kidney stones, urinary retention, bladder stones, gross hematuria. Urological work up -PVR: 4ml today -Cystogram: 04/01/21 bladder capacity 300ml -TRUS: never Current smoker, 1 cigarette daily for 40+ years No FH of malignancy Dm2: unknown, no recent HgA1C Sleep apnea: yes, does not use CPAP AUA symptom score Incomplete emptying 0 Frequency 2 Intermittency 2 Urgency 2 Weak-stream 3 Straining 0 Nocturia 4 Quality of life 4 Total 13 Total score: 0-7 mild symptoms; 8-19 moderate symptoms; 20-35 severe symptoms Allergies Allergen Reactions ??? Morphine Itching Medications: Current Outpatient Medications: ??? Ascorbic Acid [...] 2 ??? Cholecalciferol (VITAMIN D) 50 MCG (1999) Cap, Take 50 mcg by mouth daily. [...] mouth daily. Indications: Nutritional Support, Disp:, Rfl: Past Medical History: Diagnosis Date ??? Arthritis [...] ??? COLOSTOMY reversable ??? HERNIA REPAIR Right [facility] ??? HERNIA REPAIR Left [facility] ??? NECK/CHEST PROCEDURE UNLISTED Right [facility], re-built right side of neck. ??? SMALL INTESTINE SURGERY bowel rupture ??? TOTAL KNEE ARTHROPLASTY Bilateral ZANA Partial KR, done @ [facility] Social History Socioeconomic History ??? Marital [...] on file Housing Stability: Not on file Family History Problem Relation Name Age of Onset ??? Arthritis in Adults Mother ??? Dementia Mother at the end per patient ??? Hypertension Mother ??? Cancer Father ??? Heart Father ??? Heart Disease Father ??? Cancer Brother ??? COPD Brother Review of systems: Constitutional: Negative for chills and fever. Negative for unintentional weight loss, bony pain HEENT: Negative for congestion, vision changes, hearing changes. Negative for dry mouth, dry eyes Respiratory: Negative for hemoptysis, shortness of breath Cardiovascular: Negative for chest pain and palpitations. Gastrointestinal: Negative for abdominal pain, constipation, diarrhea, nausea and vomiting. Musculoskeletal: Negative for myalgias and falls Skin: Negative for perineal itching and rash. Neurological: Negative for tingling, speech change, loss of consciousness, headache, and weakness. Psychiatric/Behavioral: Negative for memory loss, negative for cognitive changes, negative for depression : see HPI otherwise negative Physical Exam: Filed Vitals: 07/25/22 1408 BP: 97/66 Pulse: 76 Temp: 97.8 ??F (36.6 ??C) TempSrc: Temporal SpO2: 96% Weight: 76.2 kg (168 lb) PainSc: 0 (0-10 Scale) Body mass index is 26.31 kg/m??. Constitutional: no acute distress, alert and oriented x3, good historian Eyes: Extraocular muscles intact, no scleral icterus Ears, Nose, Mouth/Throat: neck normal range of motion and trachea midline, Respiratory: Breathing symmetric and unlabored Gastrointestinal: Soft, non-tender, non-distended Genitourinary: No CVA tenderness Psychiatric: Mood and affect appropriate, alert and oriented to person, place and time, good historian Neurologic: Normal gait, speech clear Lab/Radiology/Diagnostic Review: WBC Date Value Ref Range Status 07/15/2022 5.4 4.4 - 11.0 x10'3/uL Final HGB Date Value Ref Range Status 07/15/2022 15.1 14.0 - 17.5 G/DL Final PLT Date Value Ref Range Status 07/15/2022 232 151 - 353 x10'3/uL Final SODIUM Date Value Ref Range Status 07/15/2022 143 136 - 145 MMOL/L Final POTASSIUM Date Value Ref Range Status 07/15/2022 4.4 3.5 - 5.1 MMOL/L Final CHLORIDE S/P/B Date Value Ref Range Status 07/15/2022 106 100 - 108 MMOL/L Final CO2 Date Value Ref Range Status 07/15/2022 31.4 21 - 32 MMOL/L Final ANION GAP Date Value Ref Range Status 07/15/2022 5.6 5 - 15 MMOL/L Final BUN Date Value Ref Range Status 07/15/2022 18 7 - 18 MG/DL Final CREATININE S/P/B Date Value Ref Range Status 07/15/2022 0.74 0.7 - 1.3 MG/DL Final BUN CREATININE RATIO Date Value Ref Range Status 07/15/2022 24.3 6 - 26 Final eGFR Non-Afr. Amer. Date Value Ref Range Status 01/06/2022 >90 >90 ML/MIN/1.73 M2 Final eGFR Afr. Amer. Date Value Ref Range Status 01/06/2022 >90 >90 ML/MIN/1.73 M2 Final Comment: NOTE: eGFR is not calculated for patients <18 years of age. This is an estimated GFR (CKD EPI) and should not be used for calculating drug doses. GLUCOSE Date Value Ref Range Status 07/15/2022 98 70 - 99 MG/DL Final CALCIUM Date Value Ref Range Status 07/15/2022 8.8 8.5 - 10.1 MG/DL Final TOTAL PROTEIN S/P/B Date Value Ref Range Status 07/15/2022 8.0 6.4 - 8.2 G/DL Final ALBUMIN S/P/B Date Value Ref Range Status 07/15/2022 4.0 3.4 - 5.0 G/DL Final BILIRUBIN TOTAL S/P/B Date Value Ref Range Status 07/15/2022 0.8 0.2 - 1.2 MG/DL Final ALKALINE PHOSPHATASE S/P/B Date Value Ref Range Status 07/15/2022 55 50 - 136 U/L Final AST Date Value Ref Range Status 07/15/2022 19 15 - 37 U/L Final ALT Date Value Ref Range Status 07/15/2022 32 16 - 60 U/L Final HGB A1C Date Value Ref Range Status 02/15/2019 5.6 5.7 Final No results found for: TESTO Lab Results Component Value Date COLOR YELLOW 07/25/2022 TRANSPARENCY CLEAR 07/25/2022 UGLU NEGATIVE 07/25/2022 UBILIRUBIN NEGATIVE 07/25/2022 UKETONES NEGATIVE 07/25/2022 USPGRAV >=1.030 07/25/2022 BLOOD NEGATIVE 07/25/2022 UPH 5.5 07/25/2022 UPROTEIN NEGATIVE 07/25/2022 UROBILI 0.2 07/25/2022 NITRITES NEGATIVE 07/25/2022 ULEU NEGATIVE 07/25/2022 Lab Results Component Value Date PSA 0.89 07/15/2022 PSA 1.10 07/07/2021 PSA 0.76 07/07/2020 PSA 0.6 02/15/2019 Recent Image: IMAGING STUDIES: CT ABD+PEL W CON DATE: 03/18/2021 10:38 AM HISTORY: RLQ abdominal pain, appendicitis suspected (Age >= 14y) 65-year-old male with right lower quadrant abdominal pain COMPARISON: Ultrasound abdominal aorta 01/15/2021 DISCUSSION: CT abdomen and pelvis following intravenous administration 75 ml [id number] contrast. Arterial and venous phase imaging. Coronal [...] Spinal degenerative changes greatest at L5-S1 level. ?? IMPRESSION: Abdominal free air consistent with bowel [...] Interpreted By: Norman Smallwood, 03/18/2021 11:08 AM Plan 1. BPH with obstruction/lower urinary tract symptoms MEASURE.PST.VOID.URINE URINALYSIS AUTO DIP 2. Nocturia URINALYSIS AUTO DIP BPH with LUTS, nocturia UA PVR 4ml today, IPSS 13 Resume CPAP Discussed at length lifestyle modification such as caffeine and acidic drink intake causing irritative bladder symptoms, appropriate daily water intake, limit fluids two hours before bed time, elevate legs throughout the day/wear compression stocks if experiencing lower extremity edema Discussed medication trial with patient. Will start Flomax (tamsulosin) 0.4 mg PO qHS for LUTS. We discussed the potential side effects of Flomax including retrograde ejaculation, fatigue, dizziness,and rhinorrhea. The patient was instructed to stop the medication if these symptoms develop. Flomaxalso may cause floppy iris syndrome, and patient should inform legal consultant prior to eye procedures. -Return to clinic in 6-8 weeks for follow up. Contact office with questions or concerns. SELENA HARPER NP Cosigned by Bubba Kaminski MD at 07/27/2022 2:32 PM CDT documented in this encounter Plan of Treatment Upcoming Encounters Date Type Department Care Team (Late st Contact Info) Description 01/27/2025 7:00 AM CDT Office Visit [facility] Family & Internal Medicine [facility] [address] [place] [address] [place] [address] [place] [address] 10/22/2025 9:15 AM CHAR FILTER TANK TENDER Office Visit [facility] [address] Mily Gan MD [address] [facility] [address] [place] [address] Scheduled Orders Name Type Priority Associated Diagnoses Orde r Schedule MEASURE.PST.VOID.URI NE Procedures Routine BPH with obstruction/lower urinary tract symptoms Ordered: 07/25/2022 documented as of this encounter Goals Goal [...] Associated Diagnosis Comments URINALYSIS AUTO DIP Routine 07/25/2022 BPH with obstruction/lower urinary tract symptoms Nocturia documented in this encounter Results * URINALYSIS AUTO DIP (07/25/2022) COLOR (U) YELLOW [facility] (3), [place] TRANSPARENCY CLEAR [facility] (3), [place] GLUCOSE (U) NEGATIVE NEGATIVE MG/DL [facility] (3), [place] BILIRUBIN (U) NEGATIVE NEGATIVE [facility] (3), [place] KETONES MG/DL (U) NEGATIVE NEGATIVE MG/DL [facility] (3), [place] SPECIFIC GRAVITY (U) >=1.030 1.001 - 1.[address] [facility] (3), [place] BLOOD (U) NEGATIVE NEGATIVE [facility] (3), [place] U PH 5.5 5.0 - 9.[address] [facility] (3), [place] PROTEIN (U) NEGATIVE NEGATIVE mg/dL [facility] (3), [place] UROBILINOGEN 0.2 0.2 - 1.0 EU/dL = mg/dL [facility] (3), [place] NITRITES NEGATIVE NEGATIVE MG/DL [facility] (3), [place] LEUKOCYTES (U) NEGATIVE NEGATIVE [facility] ([address]), [place] URINE SPECIMEN OBTAINED BY CLEAN CATCH PROCEDURE / Unknown 07/25/2022 Selena Harper MANAGER DRILLING URINE ORDERABLES Final Result [facility] ([address]), [place] [address] [place] [address], documented in this encounter Visit Diagnoses Diagnosis BPH with obstruction/lower urinary tract symptoms- Primary Hypertrophy of prostate with urinary obstruction and other lower urinary tract symptoms (LUTS) Nocturia documented in this encounter Additional Health Concerns Assessment Noted Time PHQ-9 Depression Total Score: 1 01/12/20 22 8:53 AM CHAR FILTER TANK TENDER documented as of this encounter Care Teams Commercial Real Estate Agent Relationship Specialty Start Date End Date Jeremy Castanon MD PCP - General INTERNAL MEDICINE 01/15/20 02/09/23 documented as of this encounter
--- OUTSIDE RECORDS SUMMARY | 2024-11-02 08:00 | XMS_ITS | Encounter Summary ---
Author Organization [facility] Address [address] [place] [address]. [place], [place] [id number] [place] [address] Care Team Providers Care Slag Skimmer Name Role Phone Lorie Chan MD Primary Care Provider [phone] Encounter Details Date Type Department Care Team (Latest Contact Info) Description 2022 Travel Social History Tobacco Use Types Packs/Day [...] on file Legal Sex Male 9:58 PM AUTOMOBILE RENTAL REPRESENTATIVE Gender Identity Not on file Sexual Orientation [...] Assessment Author Status No 10/02/2021 12:38 PM AUTOMOBILE RENTAL REPRESENTATIVE Acti ve * RETIRED Are you blind or do you have serious difficulty seeing, even when wearing glasses? Answer Date of Assessment Author Status No 10/02/2021 12:38 PM AUTOMOBILE RENTAL REPRESENTATIVE Acti ve * Do you have serious difficulty walking or climbing stairs? Answer Date of Assessment Author Status No 10/02/2021 12:38 PM AUTOMOBILE RENTAL REPRESENTATIVE Annette Joreg R N Active * Do you have difficulty dressing or bathing? Answer Date of Assessment Author Status No 10/02/2021 12:38 PM AUTOMOBILE RENTAL REPRESENTATIVE Annette Jorge, R N Active * Because of a physical, mental, or emotional condition, do you have difficulty doing errands alone such as visiting a doctor's office or shopping? Answer Date of Assessment Author Status No 10/02/2021 12:38 PM AUTOMOBILE RENTAL REPRESENTATIVE Annette Jorge R N Active documented as of this encounter Mental Status * Because of a physical, mental, or emotional condition, do you have serious difficulty concentrating, remembering, or making decisions? Answer Entry Date Author Status No 10/02/2021 12:38 PM AUTOMOBILE RENTAL REPRESENTATIVE Annette Jorge, R N Active documented in this encounter Plan of Treatment Upcoming Encounters Date Type Department Care Team (Late st Contact Info) Description 01/27/2025 7:00 AM CDT Office Visit [facility] Family & Internal Medicine [address] [address] Ilir Nelson PA [address] [place] [id number] 10/22/2025 9:15 AM AUTOMOBILE RENTAL REPRESENTATIVE Office Visit [facility] [address] Mily Gan MD [address] [address] documented as of this encounter Goals Goal [...] Total Score: 1 01/12/20 22 8:53 AM AUTOMOBILE RENTAL REPRESENTATIVE documented as of this encounter Care Teams Slag Skimmer Relationship Specialty Start Date End Date Lorie Chan MD PCP - General INTERNAL MEDICINE 01/15/20 02/09/23 documented as of this encounter
--- OUTSIDE RECORDS SUMMARY | 2024-11-02 08:00 | XMS_ITS | Encounter Summary ---
Author Organization [facility] Address [address] [place] [address]. [place] [address] [place] [address] Care Team Providers Care Director Career Services Name Role Phone Lorie Castanon MD Primary Care Provider [phone] Encounter Details Date Type Department Care Team (Latest Contact Info) Description 01/11/2022 9:58 AM TRUCK ASSEMBLER - 01/11/2022 11:59 PM [facility] Hospital Encounter [facility] [address] [place] [address] [place] [address] [place] [address] Discharge Disposition: Home or Self Care (Routine [...] on file Legal Sex Male 9:58 PM TRUCK ASSEMBLER Gender Identity Not on file Sexual Orientation Not on file COVID-19 Exposure Response Date Recorded In the last 10 days, have yo u been in contact with someone who was confirmed or suspected to have Coronavirus/COVID-19? No / Unsure 01/11/2022 8:25 AM TRUCK ASSEMBLER documented as of this encounter Functional Status * RETIRED Are you deaf or do you have serious difficulty hearing Answer Date of Assessment Author Status No 10/02/2021 12:38 PM TRUCK ASSEMBLER Acti ve * RETIRED Are you blind or do you have serious difficulty seeing, even when wearing glasses? Answer Date of Assessment Author Status No 10/02/2021 12:38 PM TRUCK ASSEMBLER Acti ve * Do you have serious difficulty walking or climbing stairs? Answer Date of Assessment Author Status No 10/02/2021 12:38 PM TRUCK ASSEMBLER Annette Jorge R N Active * Do you have difficulty dressing or bathing? Answer Date of Assessment Author Status No 10/02/2021 12:38 PM TRUCK ASSEMBLER Annette Jorge R N Active * Because of a physical, mental, or emotional condition, do you have difficulty doing errands alone such as visiting a doctor's office or shopping? Answer Date of Assessment Author Status No 10/02/2021 12:38 PM TRUCK ASSEMBLER Annette Jorge R N Active documented as of this encounter Mental Status * Because of a physical, mental, or emotional condition, do you have serious difficulty concentrating, remembering, or making decisions? Answer Entry Date Author Status No 10/02/2021 12:38 PM TRUCK ASSEMBLER Annette Jorge R N Active documented [...] by mouth daily. Indications: Nutritional Support 1 amLODIPine 5 MG tabletIndications:P rimary hypertension Take 1 tablet (5 mg total) by mouth daily. 90 tablet 1 2 01/19/20 22 atorvastatin 40 MG tabletIndications:M ixed hyperlipidemia TAKE 1 TABLET NIGHTLY AT BEDTIME- CHANGE FROM PRAVASTATIN LOW DENSITY LIPOPROTEIN CHOLESTEROL NOT TO GOAL 90 tablet 1 1 05/02/20 22 CPAP SUPPLIESIndications :RANDY on CPAP 1 Units by Does not apply route nightly at bedtime. Mask, tubing & filters 1 Device 3 0 10/09/20 24 vitamin B-12 (CYANOCOBALAMIN) 1000 mcg tablet Take 1 tablet (1,000 mcg total) by mouth daily. 07/25/20 23 documented as of this encounter Plan of Treatment Upcoming Encounters Date Type Department Care Team (Late st Contact Info) Description 01/27/2025 7:00 AM CDT Office Visit [facility] Family & Internal Medicine [facility] [address] [place] [address] [place] [address] [place], [place] [phone] 10/22/2025 9:15 AM TRUCK ASSEMBLER Office Visit [facility] [address] Mily Gan MD [address] [address] documented as of this encounter [...] Procedure Name Priority Date/Time Associated Diagnosis Comments XR SHOULDER LT MIN 2V Routine 01/11/2022 10:34 AM TRUCK ASSEMBLER Left shoulder pain, unspecified chronicity documented in this encounter Results * XR SHOULDER LT MIN 2V (01/11/2022 10:34 AM TRUCK ASSEMBLER) Anatomical Region Laterality Modality Shoulder Radiographic Leola ging 01/11/2022 10:3 8 AM TRUCK ASSEMBLER Impressions 01/11/2022 10:39 AM TRUCK ASSEMBLER IMPRESSION: 1. No evidence of acute fracture, dislocation or osseus erosion. 2. Normal contour to the ??humeral head. Osteopenia limits exam. 3. Moderate degenerative change of the ??AC joint and greater tuberosity. Mild degenerative change of the glenohumeral articulation. Ordered By: LORIE CASTANON Interpreted By: Víctor Jin, 01/11/2022 10:38 AM Narrative 01/11/2022 10:39 AM TRUCK ASSEMBLER IMAGING STUDIES: ?XR SHOULDER LT MIN 2V [...] change of the glenohumeral articulation. Ordered By: LORIE CASTANON Interpreted By: Víctor Jin, 01/11/2022 10:38 AM Lorie Castanon MD GENERAL IMAGING Final Result documented in this encounter Visit Diagnoses Diagnosis Left shoulder pain, unspecified chronicity documented in this encounter Additional Health Concerns Assessment Noted Time PHQ-9 Depression Total Score: 1 01/12/20 22 8:53 AM TRUCK ASSEMBLER documented as of this encounter Care Teams Director Career Services Relationship Specialty Start Date End Date Lorie Castanon MD PCP - General INTERNAL MEDICINE 01/15/20 02/09/23 documented as of this encounter
--- OUTSIDE RECORDS SUMMARY | 2024-11-02 08:00 | XMS_ITS | Encounter Summary ---
Author Organization [facility] Address [address] [place] [address]. [place] [address] [place] [address] Care Team Providers Care Box Car Washer Name Role Phone Lorie Chan MD Primary Care Provider [phone] Reason for Visit * Reason Onset Date Comments Question 10/28/2021 Encounter Details Date Type Department Care Team (Late st Contact Info) Description 10/28/2021 Telephone [facility] Medical [facility] Family & Internal Medicine [facility] [address] [place] [address] [place] [address] [place] [address] Question Social History Tobacco Use Types [...] on file Legal Sex Male 9:58 PM ENGINEER PROCESS Gender Identity Not on file Sexual Orientation Not on file COVID-19 Exposure Response Date Recorded In the last month, have you been in contact with someone who was confirmed or suspected to have Coronavirus / COVID-19? No / Unsure 10/27/2021 1:03 PM ENGINEER PROCESS documented as of this encounter Functional Status * RETIRED Are you deaf or do you have serious difficulty hearing Answer Date of Assessment Author Status No 10/02/2021 12:38 PM ENGINEER PROCESS Acti ve * RETIRED Are you blind or do you have serious difficulty seeing, even when wearing glasses? Answer Date of Assessment Author Status No 10/02/2021 12:38 PM ENGINEER PROCESS Acti ve * Do you have serious difficulty walking or climbing stairs? Answer Date of Assessment Author Status No 10/02/2021 12:38 PM ENGINEER PROCESS Annette Jorge, R N Active * Do you have difficulty dressing or bathing? Answer Date of Assessment Author Status No 10/02/2021 12:38 PM ENGINEER PROCESS Annette Jorge R N Active * Because of a physical, mental, or emotional condition, do you have difficulty doing errands alone such as visiting a doctor's office or shopping? Answer Date of Assessment Author Status No 10/02/2021 12:38 PM ENGINEER PROCESS Annette Jorge R N Active documented as of this encounter Mental Status * Because of a physical, mental, or emotional condition, do you have serious difficulty concentrating, remembering, or making decisions? Answer Entry Date Author Status No 10/02/2021 12:38 PM ENGINEER PROCESS Annette Jorge R N Active documented in this encounter Progress Notes * Xi Page RN - 11/01/2021 9:39 AM CST Script sent as requested NEER PROCESS * Lorie Chan MD - 10/29/2021 1:00 PM CST Ok to fill NEER PROCESS * Xi Page RN - 10/28/2021 3:24 PM CST Needs sent [facility] NEER PROCESS * Xi Page RN - 10/28/2021 3:23 PM CST Ok to refill? Amlodipine and Metoprolol. NEER PROCESS * Niya Mckinley - 10/28/2021 1:11 PM CST Pt CB# [phone] Pt called wanting to know if he has to still beon blood pressure med that put him on when he ws a pt in hosptial NEER PROCESS documented in this encounter Plan of Treatment Upcoming Encounters Date Type Department Care Team (Late st Contact Info) Description 01/27/2025 7:00 AM CDT Office Visit [facility] Family & Internal Medicine [facility] [address] [place] [address] [place] [address] [place], [place] [phone] 10/22/2025 9:15 AM ENGINEER PROCESS Office Visit [facility] [address] Mily Gan MD [facility]. [address] [address] documented as of this encounter Goals [...] as of this encounter Visit Diagnoses Diagnosis HTN (hypertension)- Primary Unspecified essential hypertension documented in this encounter Care Teams Box Car Washer Relationship Specialty Start Date End Date Lorie Chan MD PCP - General INTERNAL MEDICINE 01/15/20 02/09/23 documented as of this encounter
--- OUTSIDE RECORDS SUMMARY | 2024-11-02 08:00 | XMS_ITS | Encounter Summary ---
Author Organization [facility] Address [address] [place] [address]. [place] [address] [place] [address] Care Team Providers Care Budget Clerk Name Role Phone Lorie Chan MD Primary Care Provider Reason for Visit * Reason Onset Date Comments Medication 10/27/2021 Encounter Details Date Type Department Care Team (Late st Contact Info) Description 10/27/2021 Telephone [facility] Medical Group Family & Internal Medicine [facility] [address] [place] [address] [place] [address] [place] [address] Medication Social History Tobacco Use Types [...] on file Legal Sex Male 9:58 PM INVESTIGATIVE SHOPPER Gender Identity Not on file Sexual Orientation Not on file COVID-19 Exposure Response Date Recorded In the last month, have you been in contact with someone who was confirmed or suspected to have Coronavirus / COVID-19? No / Unsure 10/27/2021 1:03 PM INVESTIGATIVE SHOPPER documented as of this encounter Functional Status * RETIRED Are you deaf or do you have serious difficulty hearing Answer Date of Assessment Author Status No 10/02/2021 12:38 PM INVESTIGATIVE SHOPPER Acti ve * RETIRED Are you blind or do you have serious difficulty seeing, even when wearing glasses? Answer Date of Assessment Author Status No 10/02/2021 12:38 PM INVESTIGATIVE SHOPPER Acti ve * Do you have serious difficulty walking or climbing stairs? Answer Date of Assessment Author Status No 10/02/2021 12:38 PM INVESTIGATIVE SHOPPER Annette Jorge R N Active * Do you have difficulty dressing or bathing? Answer Date of Assessment Author Status No 10/02/2021 12:38 PM INVESTIGATIVE SHOPPER Annette Jorge R N Active * Because of a physical, mental, or emotional condition, do you have difficulty doing errands alone such as visiting a doctor's office or shopping? Answer Date of Assessment Author Status No 10/02/2021 12:38 PM INVESTIGATIVE SHOPPER Annette Jorge R N Active documented as of this encounter Mental Status * Because of a physical, mental, or emotional condition, do you have serious difficulty concentrating, remembering, or making decisions? Answer Entry Date Author Status No 10/02/2021 12:38 PM INVESTIGATIVE SHOPPER Annette Jorge R N Active documented in this encounter Progress Notes * Xi Page RN - 11/02/2021 8:46 AM CST Pt made aware and v/u. STIGATIVE SHOPPER * Xi Page RN - 10/28/2021 8:43 AM CST Nurse attempted to contact pt to make him aware- pt answered and then hung up STIGATIVE SHOPPER * Lorie Chan MD - 10/27/2021 5:56 PM CST We can stop the Amlodipine & refill the Metoprolol 3 months & re-evaluate in January when he is in STIGATIVE SHOPPER * Summer Verma RN - 10/27/2021 3:05 PM CST Please advise. STIGATIVE SHOPPER * Lizet Mejias - 10/27/2021 1:35 PM CST Pt stopped by the office to see when he is to stop blood pressure meds and if he is to continue taking he needs a refill of Amlodipine 5 mg and Metoprolol 50 mg STIGATIVE SHOPPER documented in this encounter Plan of Treatment Upcoming Encounters Date Type Department Care Team (Late st Contact Info) Description 01/27/2025 7:00 AM CDT Office Visit [facility] Family & Internal Medicine [facility] [address] [place] [address] [place] [address] [place] [address] 10/22/2025 9:15 AM INVESTIGATIVE SHOPPER Office Visit [facility] [address] Mily Gan MD [address] [address] documented as of this encounter [...] on filedocumented in this encounter Care Teams Budget Clerk Relationship Specialty Start Date End Date Lorie Chan MD PCP - General INTERNAL MEDICINE 01/15/20 02/09/23 documented as of this encounter
--- OUTSIDE RECORDS SUMMARY | 2024-11-02 08:00 | XMS_ITS | Encounter Summary ---
Author Organization [facility] Address [address] [place] [address]. [place] [address] [place] [address] Care Team Providers Care It Analyst Name Role Phone Lorie Chan MD Primary Care Provider Encounter Details Date Type Department Care Team (Latest Contact Info) Description 07/15/2022 7:00 AM T - 07/15/2022 11:59 PM [facility] Hospital Encounter [facility] [address] [place], [place] [phone] [place] [address] [place], [place] [phone] Discharge Disposition: Home or Self Care (Routine [...] on file Legal Sex Male 9:58 PM FEATHER BALER Gender Identity Not on file Sexual Orientation [...] Assessment Author Status No 10/02/2021 12:38 PM FEATHER BALER Acti ve * RETIRED Are you blind or do you have serious difficulty seeing, even when wearing glasses? Answer Date of Assessment Author Status No 10/02/2021 12:38 PM FEATHER BALER Acti ve * Do you have serious difficulty walking or climbing stairs? Answer Date of Assessment Author Status No 10/02/2021 12:38 PM FEATHER BALER Annette Jorge R N Active * Do you have difficulty dressing or bathing? Answer Date of Assessment Author Status No 10/02/2021 12:38 PM FEATHER BALER Annette Jorge R N Active * Because of a physical, mental, or emotional condition, do you have difficulty doing errands alone such as visiting a doctor's office or shopping? Answer Date of Assessment Author Status No 10/02/2021 12:38 PM FEATHER BALER Annette Jorge R N Active documented as of this encounter Mental Status * Because of a physical, mental, or emotional condition, do you have serious difficulty concentrating, remembering, or making decisions? Answer Entry Date Author Status No 10/02/2021 12:38 PM FEATHER BALER Annette Jorge R N Active documented in [...] CHOLESTEROL NOT AT GOAL 90 tablet 2 07/18/20 22 CPAP SUPPLIESIndications :RANDY on CPAP 1 Units by Does not apply route nightly at bedtime. Mask, tubing & filters 1 Device 3 0 10/09/20 24 METOPROLOL SUCCINATE ER 50 MG 24 hr tabletIndications:P rimary hypertension TAKE 1 TABLET DAILY 90 tablet 2 07/18/20 22 vitamin B-12 (CYANOCOBALAMIN) 1000 mcg tablet Take 1 tablet (1,000 mcg total) by mouth daily. 07/25/20 23 documented as of this encounter Plan of Treatment Upcoming Encounters Date Type Department Care Team (Late st Contact Info) Description 01/27/2025 7:00 AM CDT Office Visit [facility] Family & Internal Medicine [facility] [address] [place] [address] [place] [address] [place], [place] [phone] 10/22/2025 9:15 AM FEATHER BALER Office Visit [facility] [address] Mily Gan MD [address] [address] documented as of this encounter [...] Diagnosis Comments VITAMIN B12 / FOLATE Routine 07/15/2022 7:39 AM CDT Mixed hyperlipidemia TSH W/REFLEX Routine 07/15/2022 7:39 AM CDT Mixed hyperlipidemia PROSTATE SPECIFIC ANTIGEN,SCREENING Routine 07/15/2022 7:39 AM CDT Prostate cancer screening COMPREHENSIVE METABOLIC PANEL Routine 07/15/2022 7:39 AM CDT Mixed hyperlipidemia LIPID PANEL Routine 07/15/2022 7:39 AM CDT Mixed hyperlipidemia CBC W/DIFF AUTOMATED Routine 07/15/2022 7:39 AM CDT Mixed hyperlipidemia VITAMIN D, 25 OH Routine 07/15/2022 7:39 AM CDT Vitamin D deficiency documented in this encounter Results * (ABNORMAL) CBC W/DIFF AUTOMATED (07/15/2022 7:39 AM CDT) WBC 5.4 4.4 - 11.0 x10'3/uL 07/15/2022 7:47 AM CDT [facility] RBC 4.64 4.50 - 5.90 x10'6/uL 07/15/2022 7:47 AM CDT [facility] HGB 15.1 14.0 - 17.5 G/DL 07/15/2022 7:47 AM CDT [facility] HCT 45.1 41.5 - 50.4 % 07/15/2022 7:47 AM CDT [facility] MCV 97.2(H) 80.0 - 96.0 FL 07/15/2022 7:47 AM CDT [facility] MCH 32.5(H) 26.5 - 31.4 PG 07/15/2022 7:47 AM CDT [facility] MCHC 33.5 31.9 - 34.8 G/DL 07/15/2022 7:47 AM CDT [facility] RDW 12.7 12.3 - 14.3 % 07/15/2022 7:47 AM CDT [facility] PLT 232 151 - 353 x10'3/uL 07/15/2022 7:47 AM CDT [facility] MPV 11.1 9.7 - 11.9 FL 07/15/2022 7:47 AM T [facility] RBC MORPHOLOGY NORMAL 07/15/2022 7:47 AM T [facility] PLT MORPH. NORMAL 07/15/2022 7:47 AM T [facility] WBC MORPHOLOGY NORMAL 07/15/2022 7:47 AM CDT [facility] LYMPHOCYTES % 33.8 15.8 - 45.0 % 07/15/2022 7:47 AM T [facility] NEUTROPHILS % 52.0 42.1 - 71.9 % 07/15/2022 7:47 AM CDT [facility] MONOCYTES % 11.4 5.7 - 12.5 % 07/15/2022 7:47 AM CDT [facility] EOSINOPHILS 1.5 0.0 - 5.6 % 07/15/2022 7:47 AM CDT [facility] BASOPHILS 1.1 0.0 - 1.3 % 07/15/2022 7:47 AM CDT [facility] ABS. NEUTROPHILS 2.78 1.40 - 6.00 x10'3/uL 07/15/2022 7:47 AM CDT [facility] IMMATURE GRANS % 0.2 0.0 - 0.5 % 07/15/2022 7:47 AM CDT [facility] ABS. LYMPHOCYTES 1.81 0.80 - 4.70 x10'3/uL 07/15/2022 7:47 AM CDT [facility] 07/15/2022 7:39 AM CDT Lorie Chan MD LABORATORY Final Result [facility] [address] [place] [address], * COMPREHENSIVE METABOLIC PANEL (07/15/2022 7:39 AM CDT) GLUCOSE 98 70 - 99 MG/DL 07/15/2022 8:39 AM CDT [facility] BUN 18 7 - 18 MG/DL 07/15/2022 8:39 AM CDT [facility] CREATININE S/P/B 0.74 0.7 - 1.3 MG/DL 07/15/2022 8:39 AM CDT [facility] SODIUM S/P/B 143 136 - 145 MMOL/L 07/15/2022 8:39 AM T [facility] POTASSIUM S/P/B 4.4 3.5 - 5.1 MMOL/L 07/15/2022 8:39 AM CDT [facility] CHLORIDE S/P/B 106 100 - 108 MMOL/L 07/15/2022 8:39 AM CDT [facility] CO2 31.4 21 - 32 MMOL/L 07/15/2022 8:39 AM T [facility] CALCIUM S/P/B 8.8 8.5 - 10.1 MG/DL 07/15/2022 8:39 AM [facility] BILIRUBIN TOTAL S/P/B 0.8 0.2 - 1.2 MG/DL 07/15/2022 8:39 AM [facility] TOTAL PROTEIN S/P/B 8.0 6.4 - 8.2 G/DL 07/15/2022 8:39 AM [facility] ALBUMIN S/P/B 4.0 3.4 - 5.0 G/DL 07/15/2022 8:39 AM [facility] AST 19 15 - 37 U/L 07/15/2022 8:39 AM [facility] ALT 32 16 - 60 U/L 07/15/2022 8:39 AM [facility] ALKALINE PHOSPHATASE S/P/B 55 50 - 136 U/L 07/15/2022 8:39 AM [facility] ANION GAP 5.6 5 - 15 MMOL/L 07/15/2022 8:39 AM [facility] BUN CREATININE RATIO 24.3 6 - 26 07/15/2022 8:39 AM [facility] A/G RATIO 1.0 1.0 - 2.0 RATIO 07/15/2022 8:39 AM [facility] GFR ESTIMATE >90 >90 ML/MIN/1.7 3 M2 07/15/2022 8:39 AM [facility] Comment: NOTE: eGFR is not calculated for patients <18 years of age. This is an estimated GFR calculation using the new CKD EPI creatinine equation without race and so does not require a correction factor for race. This estimated GFR should not be used for calculating drug doses. 07/15/2022 7:39 AM CDT us Lorie Chan MD LABORATORY Final Result [facility] [address] [place] [address], * LIPID PANEL (07/15/2022 7:39 AM CDT) [facility] Signature CHOLESTEROL 146 <200.0 MG/DL 07/15/2022 8:39 AM CDT [facility] TRIGLYCERIDES 73 <150 MG/DL 07/15/2022 8:39 AM T [facility] HDL 51 >40.0 MG/DL 07/15/2022 8:39 AM T [facility] LDL (CALCULATED) 80 <100 MG/DL 07/15/20 8:39 AM T [facility] NON HDL CHOLESTEROL 95 <130 MG/DL 07/15 8:39 AM T [facility] CHOL/HDL RATIO 2.9 0.0 - 4.5 07/15/2022 8:39 AM [facility] VLDL CALCULATION 15 5 - 55 MG/DL 07/15/2022 8:39 AM T [facility] LIPID INTERPRETATION 07/15/2022 8:39 AM [facility] Comment: NIH CONCENSUS REPORT RECOMMENDATIONS: [...] ? >=160 ?>=130 07/15/2022 7:39 AM CDT Lorie Chan MD LABORATORY Final Result Performing Organization Address [facility] Co de Phone Number [facility] [address] [place] [address], * (ABNORMAL) VITAMIN B12 / FOLATE (07/15/2022 7:39 AM CDT) Pathologist [facility] VITAMIN B12 S/P/B 1,289(H) 193 - 986 PG/ML 07/15/2022 8:39 AM CDT [facility] FOLATE 19.0 8.6 - 58.9 NG/ML 07/15/2022 8:39 AM CDT [facility] 07/15/2022 7:39 AM CDT us Lorie Chan MD LABORATORY Final Result Performing Organization Address City/[facility]/ZIP Co de Phone Number [facility] [address] [place] [address], [place] [phone] * TSH W/REFLEX (07/15/2022 7:39 AM CDT) TSH 1.664 0.358 - 3.74 uIU/ML 07/15/2022 8:39 AM CDT [facility] Comment: HIGH DOSES OF BIOTIN MAY INTERFERE WITH THIS TEST RESULT. CORRELATION TO CLINICAL HISTORY AND PRESENTATION RECOMMENDED. FREE T4 NOT INDICATED 07/15/2022 7:39 AM CDT Lorie Chan MD LABORATORY Final Result Performing Organization Address [facility] Co de Phone Number [facility] [address] [place] [address], [place] [phone] * PROSTATE SPECIFIC ANTIGEN,SCREENING (07/15/2022 7:39 AM CDT) PSA 0.89 <4.00 NG/ML 07/15/2022 8:12 AM CDT [facility] Comment: Test was performed using the Siemens method. ??Results obtained with other assay methods or kits cannot be used interchangeably with results obtained by the Siemens method. 07/15/2022 7:39 AM CDT Lorie Chan MD LABORATORY Final Result Performing Organization Address [facility] Co de Phone Number [facility] [address] [place] [address], [place] [phone] * VITAMIN D, 25 OH (07/15/2022 7:39 AM CDT) VITAMIN D 25 HYDROXY S/P/B 46 30 - 100 NG/ML 07/15/2022 8:44 AM CDT [facility] Comment: ? INTERPRETATION ? DEFICIENT ??<20 ? INSUFFICIENT 20-29 ?SUFFICIENT 30-100 07/15/2022 7:39 AM CDT Lorie Chan MD LABORATORY Final Result [facility] [address] [place] [address], documented in this encounter Visit Diagnoses Diagnosis Vitamin D deficiency Unspecified vitamin D deficiency Prostate cancer screening Special screening for malignant neoplasm of prostate Mixed hyperlipidemia documented in this encounter Additional Health Concerns Assessment Noted Time PHQ-9 Depression Total Score: 1 01/12/20 22 8:53 AM FEATHER BALER documented as of this encounter Care Teams It Analyst Relationship Specialty Start Date End Date Lorie Chan MD PCP - General INTERNAL MEDICINE 01/15/20 02/09/23 documented as of this encounter
--- OUTSIDE RECORDS SUMMARY | 2024-11-02 08:00 | XMS_ITS | Encounter Summary ---
Author Organization [facility] Address [address] [place] [address]. [place] [address] [place] [address] Care Team Providers Care Plugger Worker Name Role Phone Lorie Chan MD Primary Care Provider [phone] Reason for Visit * Reason Onset Date Comments Pre-visit Gap Closure 01/04/2022 Encounter Details Date Type Department Care Team (Late st Contact Info) Description 01/04/2022 Telephone [facility] Family & Internal Medicine [facility] [address] [place] [address] Lorie Chan MD [address] [place] [address] Pre-visit Gap Closure Social History Tobacco Use [...] on file Legal Sex Male 9:58 PM ASSOCIATE PRINCIPAL Gender Identity Not on file Sexual Orientation Not on file COVID-19 Exposure Response Date Recorded In the last 10 days, have yo u been in contact with someone who was confirmed or suspected to have Coronavirus/COVID-19? No / Unsure 12/24/2021 1:46 PM ASSOCIATE PRINCIPAL documented as of this encounter Functional Status * RETIRED Are you deaf or do you have serious difficulty hearing Answer Date of Assessment Author Status No 10/02/2021 12:38 PM ASSOCIATE PRINCIPAL Acti ve * RETIRED Are you blind or do you have serious difficulty seeing, even when wearing glasses? Answer Date of Assessment Author Status No 10/02/2021 12:38 PM ASSOCIATE PRINCIPAL Acti ve * Do you have serious difficulty walking or climbing stairs? Answer Date of Assessment Author Status No 10/02/2021 12:38 PM ASSOCIATE PRINCIPAL Annette Jorge, R N Active * Do you have difficulty dressing or bathing? Answer Date of Assessment Author Status No 10/02/2021 12:38 PM ASSOCIATE PRINCIPAL Annette Jorge, R N Active * Because of a physical, mental, or emotional condition, do you have difficulty doing errands alone such as visiting a doctor's office or shopping? Answer Date of Assessment Author Status No 10/02/2021 12:38 PM ASSOCIATE PRINCIPAL Annette Jorge, R N Active documented as of this encounter Mental Status * Because of a physical, mental, or emotional condition, do you have serious difficulty concentrating, remembering, or making decisions? Answer Entry Date Author Status No 10/02/2021 12:38 PM ASSOCIATE PRINCIPAL Annette Jorge, R N Active documented in this encounter Progress Notes * Estela Paul CMA - 01/04/2022 12:14 PM CST Contacted patient for pre-visit gap closure. I have counseled the patient on tobacco use during this telephone encounter. I am calling this patient as a patient advocate for the [employer]. My direct extension is [phone]. You can also reach me at: [phone] ([facility]) OR [phone] ([facility]) CIATE PRINCIPAL documented in this encounter Plan of Treatment Upcoming Encounters Date Type Department Care Team (Late st Contact Info) Description 01/27/2025 7:00 AM CDT Office Visit [facility] Family & Internal Medicine [facility] [address] [place] [address] [place] [address] [place] [address] 10/22/2025 9:15 AM ASSOCIATE PRINCIPAL Office Visit [facility] [address] [place] [address] Mily Gan MD [id number] [place] [address] documented as of this encounter [...] Total Score: 0 01/05/20 22 12:19 PM ASSOCIATE PRINCIPAL documented as of this encounter Care Teams Plugger Worker Relationship Specialty Start Date End Date Lorie Chan MD PCP - General INTERNAL MEDICINE 01/15/20 02/09/23 documented as of this encounter
--- OUTSIDE RECORDS SUMMARY | 2024-11-02 08:01 | XMS_ITS | Encounter Summary ---
Author Organization [facility] Address [address] [place] [address]. [place] [address] [place] [address] Care Team Providers Care Appliance Painter And Refinisher Name Role Phone Lorie Chan MD Primary Care Provider [phone] Moraima Toledo RN Unavailable [phone] Reason for Visit * Reason Onset Date Comments Other 10/18/2021 Encounter Details Date Type Department Care Team (Late st Contact Info) Description 10/18/2021 Telephone [facility] General Surgery - [place] [address] [facility], [address] [place] [address] Federico Mayer MD [address] [facility] [address] [place] [address] Other Social History Tobacco Use Types Packs/Day [...] on file Legal Sex Male 9:58 PM EXPLOSIVE OPERATOR Gender Identity Not on file Sexual Orientation Not on file COVID-19 Exposure Response Date Recorded In the last month, have you been in contact with someone who was confirmed or suspected to have Coronavirus / COVID-19? No / Unsure 10/27/2021 1:03 PM EXPLOSIVE OPERATOR documented as of this encounter Functional Status * RETIRED Are you deaf or do you have serious difficulty hearing Answer Date of Assessment Author Status No 10/02/2021 12:38 PM EXPLOSIVE OPERATOR Acti ve * RETIRED Are you blind or do you have serious difficulty seeing, even when wearing glasses? Answer Date of Assessment Author Status No 10/02/2021 12:38 PM EXPLOSIVE OPERATOR Acti ve * Do you have serious difficulty walking or climbing stairs? Answer Date of Assessment Author Status No 10/02/2021 12:38 PM EXPLOSIVE OPERATOR Annette Jorge, R N Active * Do you have difficulty dressing or bathing? Answer Date of Assessment Author Status No 10/02/2021 12:38 PM EXPLOSIVE OPERATOR Annette Jorge, R N Active * Because of a physical, mental, or emotional condition, do you have difficulty doing errands alone such as visiting a doctor's office or shopping? Answer Date of Assessment Author Status No 10/02/2021 12:38 PM EXPLOSIVE OPERATOR Annette Jorge, R N Active documented as of this encounter Mental Status * Because of a physical, mental, or emotional condition, do you have serious difficulty concentrating, remembering, or making decisions? Answer Entry Date Author Status No 10/02/2021 12:38 PM EXPLOSIVE OPERATOR Annette Jorge, R N Active documented in this encounter Progress Notes * Sarai Thomas - 10/18/2021 9:17 AM CST Please call Libby concerning this patient. Thanks OSIVE OPERATOR documented in this encounter Plan of Treatment Upcoming Encounters Date Type Department Care Team (Late st Contact Info) Description 01/27/2025 7:00 AM CDT Office Visit [facility] Family & Internal Medicine - [place] [address] [place] [address] [place] [address] [place], [place] [id number] 10/22/2025 9:15 AM EXPLOSIVE OPERATOR Office Visit [facility] [address] Mily Gan MD [facility] [address] [place], [place] [id number] documented as of this encounter Goals Goal [...] on filedocumented in this encounter Care Teams Appliance Painter And Refinisher Relationship Specialty Start Date End Date Lorie Chan MD PCP - General INTERNAL MEDICINE 01/15/20 02/09/23 Moraima Toledo RN [address] [place] [address] Retail And Promotions Coordinator (Ambulatory) REGISTERED NURSE 09/23/21 documented as of this encounter
--- OUTSIDE RECORDS SUMMARY | 2024-11-02 08:01 | XMS_ITS | Encounter Summary ---
Author Organization [facility] Address [address] [place] [address]. [place], [place] [address] [place] [address] Care Team Providers Care Business Intelligence Engineer Name Role Phone Lorie Chan MD Primary Care Provider [phone] Reason for Visit * Auth/Cert Specialty Diagnoses / Procedures Referred By Shelby jama Referred To Contact Home Health Services / [facility] HOME HEALTH [facility] Home Care [facility] [address] [facility] [address] [place] [address] Phone: tel: fax: Referral ID Status Reason Start Date Expiration Date Visits Re quested Visits Authorized [id number] 1 1 Encounter Details Date Type Department Care Team (Late st Contact Info) Description 10/20/2021 10:30 AM HORSE SHOW MANAGER Home Care Visit [facility] Home [facility] [address] [facility] [address] [place] [address] Hillary Wade, [facility] Social History Tobacco Use Types Packs/Day Years [...] file Legal Sex Male 9:58 PM HORSE SHOW MANAGER Gender Identity Not on file Sexual Orientation Not on file COVID-19 Exposure Response Date Recorded In the last month, have you been in contact with someone who was confirmed or suspected to have Coronavirus / COVID-19? No / Unsure 10/15/2021 2:25 PM HORSE SHOW MANAGER documented as of this encounter Last Filed Vital Signs Vital Sign Reading Time Taken Comments Blood Pressure 120/68 10/20/2021 10:45 AM HORSE SHOW MANAGER Pulse 70 10/20/2021 10:45 AM HORSE SHOW MANAGER Temperature 36.4 ??C (97.5 ??F) 10/20/2021 10:[address] Respiratory Rate 18 10/20/2021 10:45 AM HORSE SHOW MANAGER Oxygen Saturation 98% 10/20/2021 10:45 AM HORSE SHOW MANAGER Inhaled Oxygen Concentration - - Weight - - Height - - Body Mass Index - - documented in this encounter Functional Status * RETIRED Are you deaf or do you have serious difficulty hearing Answer Date of Assessment Author Status No 10/02/2021 12:38 PM HORSE SHOW MANAGER Acti ve * RETIRED Are you blind or do you have serious difficulty seeing, even when wearing glasses? Answer Date of Assessment Author Status No 10/02/2021 12:38 PM HORSE SHOW MANAGER Acti ve * Do you have serious difficulty walking or climbing stairs? Answer Date of Assessment Author Status No 10/02/2021 12:38 PM HORSE SHOW MANAGER Annette Jorge R N Active * Do you have difficulty dressing or bathing? Answer Date of Assessment Author Status No 10/02/2021 12:38 PM HORSE SHOW MANAGER Annette Jorge R N Active * Because of a physical, mental, or emotional condition, do you have difficulty doing errands alone such as visiting a doctor's office or shopping? Answer Date of Assessment Author Status No 10/02/2021 12:38 PM HORSE SHOW MANAGER Annette Jorge R N Active documented as of this encounter Mental Status * Because of a physical, mental, or emotional condition, do you have serious difficulty concentrating, remembering, or making decisions? Answer Entry Date Author Status No 10/02/2021 12:38 PM HORSE SHOW MANAGER Annette Jorge R N Active documented in this encounter Plan of Treatment Upcoming Encounters Date Type Department Care Team (Late st Contact Info) Description 01/27/2025 7:00 AM CDT Office Visit [facility] Medical [facility] Family & Internal Medicine - [place] [address] [place] [address] [place] [address] [place], [place] [id number] 10/22/2025 9:15 AM HORSE SHOW MANAGER Office Visit [facility] [address] Mily Gan MD [id number] [place], [place] [phone] documented as of this encounter Goals Goal [...] Diagnoses Not on filedocumented in this encounter Home Health Visit - Care Plan Visit Details Visit Type -SN - Home Visit Discipline -Residential Problems Problem Description Start Date Status Goals Interve ntions Wound Management Disciplines: Residential Skin integrity deficit related to: surgical wound wound. Location/site: abdomen 10/06/2021 Active 1 goal linked to scheduled/document ed intervention 1 problem intervention scheduled/document ed in this visit 5 goal interventions scheduled/document ed in this visit Collaboration of Care Disciplines: Residential Collaboration for safe care. 10/06/2021 Active 2 goals linked to scheduled/document ed interventions 4 goal interventions scheduled/document ed in this visit Nutritional concerns Disciplines: Residential Inadequate/imbala nced nutritional concerns 10/06/2021 Active 1 goal linked to scheduled/document ed intervention 1 goal intervention scheduled/document ed in this visit Pulse Oximetry Disciplines: Residential Skilled assessment and monitoring of O2 saturations. 10/06/2021 Active 1 goal linked to scheduled/document ed intervention 1 goal intervention scheduled/document ed in this visit Fall Precautions Disciplines: Residential Patient at risk for falls or has had recent fall occurrence(s). 10/14/2021 Active 1 goal linked to scheduled/document ed intervention Goals Goal Associated Problem Outcome Goal Met? Visit Notes Patient integumentary care needs met without signs/symptoms of complications Description: - Wound will heal without complications by 12/04/21. - Patient will report complications and verbalize diet to promote wound healing by 12/04/21. - Control of drainage and prevention with early detection of infection for non-healing wounds by 12/04/21. - Incision healed without signs of infection by 12/04/21. Wound Management Progressing No Patient meets homebound requirements. Description: Patient meets requirements of homebound status as evidenced by 12/04/21. Collaboration of Care Progressing No Patient safety met through collaboration for safe care. Description: Clinicians will communicate patient care and safety needs during episode of care through 12/04/21. Collaboration of Care Progressing No Nutritional Status for Optimal Health Description: Patient will demonstrate adequate nutritional status as evidenced by stabilization of weight and intake of required nutrients for optimal health and functioning by 12/04/21. Nutritional concerns Progressing No SN Pulse Oximetry Description: Patient's oxygen saturation will remain at or above 90% through 12/04/21 Pulse Oximetry Progressing No Patient/caregiver maintains a safe environment. Description: Patient/caregiver will demonstrate ability to maintain a safe environment without injuries/falls by 12/04/21. Fall Precautions Progressing No Interventions Intervention Associated Problem/Goal Status Variance Visit Notes Wound Measurement Description: Wound measured weekly by Agency (see wound assessment form). Problem:Wound Management Goal:Patient integumentary care needs met without signs/symptoms of complications Completed Instruct infection prevention Description: Instruct Patient and in signs/symptoms of wound infection. Problem:Wound Management Goal:Patient integumentary care needs met without signs/symptoms of complications Completed Evaluate effectiveness Description: Assess patient's current nutritional status, factors that affect patient's ability to purchase and prepare meals, food preferences, current eating practices, and current knowledge of intake requirements. Problem:Wound Management Goal:Patient integumentary care needs met without signs/symptoms of complications Completed Medication Management Description: - Review and identify unnecessary therapeutic duplication. Each clinician to perform bottle check weekly on their first visit of the week. (current) - Asses Patient ability to manage medications. Provide detailed instruction on proper administration and medication management. - Patient to take medications from pill bottles set up by Pharmacy - Instruct Patient in medication administration, purpose, dosages, preparation, scheduling, side effects, food/drug interactions, storage, and potential complications. Problem:Wound Management Goal:Patient integumentary care needs met without signs/symptoms of complications Completed Home medication management reviewed with patient. Patient demonstrates ability to perform safe home medication administration. Assess Skin Integrity Description: Skilled observation and assessment of wound. Problem:Wound Management Goal:Patient integumentary care needs met without signs/symptoms of complications Completed Instruct wound care Description: Patient and/or caregiver to remove dressing from left abdominal incision and apply Band-Aid daily and as needed if soiled and/or loosened. May leave open to air when no longer having drainage. Problem:Wound Management Completed Patient's wound is healed as of this visit and is left open to air. Assess Vital Signs Description: Obtain and record vital signs. Vital signs- report to provider if: BP: systolic blood pressure <90 or >160, diastolic blood pressure<60 or >90; temperature >100.5 F; pulse <60 or >100 bpm; respiratory rate <12 or >28/min; SPO2 <90%. Problem:Collaboration of Care Goal:Patient safety met through collaboration for safe care. Completed Vital Signs -report to provider if: BP:?? systolic blood pressure <90 or >160; diastolic blood pressure <60 or >90. Pulse: <60 or >100 bpm. Respiratory Rate:?? <12 or >28 /min. Temperature:?? >100.5 F. SPO2: <90%.? Plan Towards Discharge Description: Document Patient progress towards discharge. Problem:Collaboration of Care Goal:Patient safety met through collaboration for safe care. Completed Care Coordination Description: Coordinate care with patient regarding plan of care. Problem:Collaboration of Care Goal:Patient safety met through collaboration for safe care. Completed Plan for Next Visit Description: Next visit plan summation Problem:Collaboration of Care Goal:Patient safety met through collaboration for safe care. Completed Instruct diet Description: Instruct on As Tolerated diet and any fluid restrictions/requiremen ts. Problem:Nutritional concerns Goal:Nutritional Status for Optimal Health Completed SN to obtain pulse ox reading Description: SN to obtain pulse oximetry reading as ordered. Evaluate the effectiveness of current therapy, and notify physician of O2 saturations below 90%. Problem:Pulse Oximetry Goal:SN Pulse Oximetry Completed documented in this encounter Care Teams Business Intelligence Engineer Relationship Specialty Start Date End Date Lorie Chan MD PCP - General INTERNAL MEDICINE 01/15/20 02/09/23 documented as of this encounter
--- OUTSIDE RECORDS SUMMARY | 2024-11-02 08:01 | XMS_ITS | Encounter Summary ---
Author Organization [facility] Address [address] [place] [address]. [place] [address] [place] [address] Care Team Providers Care Technical Director Name Role Phone Lorie Castanon MD Primary Care Provider [phone] Reason for Visit * Reason Comments Postop Followup lap reversal of meek man's(09/22/2021) Encounter Details Date Type Department Care Team (Late st Contact Info) Description 10/27/2021 1:20 PM RETAIL BUSINESS ANALYST Office Visit [facility] General Surgery [address], [address] [place] [address] Federico Amador MD [address] [facility] [address] [place] [address] Postop Followup (lap reversal of jordan's(09/22/2021) ) Social History Tobacco Use Types Packs/Day [...] file Legal Sex Male 9:58 PM RETAIL BUSINESS ANALYST Gender Identity Not on file Sexual Orientation Not on file COVID-19 Exposure Response Date Recorded In the last month, have you been in contact with someone who was confirmed or suspected to have Coronavirus / COVID-19? No / Unsure 10/27/2021 1:03 PM RETAIL BUSINESS ANALYST documented as of this encounter Last Filed Vital Signs Vital Sign Reading Time Taken Comments Blood Pressure 140/70 10/27/2021 1:21 PM RETAIL BUSINESS ANALYST Pulse 83 10/27/2021 1:21 PM RETAIL BUSINESS ANALYST Temperature 36.1 ??C (96.9 ??F) 10/27/2021 1:21 PM CS T Respiratory Rate 16 10/27/2021 1:21 PM RETAIL BUSINESS ANALYST Oxygen Saturation 98% 10/27/2021 1:21 PM RETAIL BUSINESS ANALYST Inhaled Oxygen Concentration - - Weight 73.5 kg (162 lb) 10/27/2021 1:21 PM RETAIL BUSINESS ANALYST Height 170.2 cm (5' 7 ) 10/27/2021 1:21 PM RETAIL BUSINESS ANALYST Body Mass Index 25.37 10/27/2021 1:21 PM RETAIL BUSINESS ANALYST documented in this encounter Functional Status * RETIRED Are you deaf or do you have serious difficulty hearing Answer Date of Assessment Author Status No 10/02/2021 12:38 PM RETAIL BUSINESS ANALYST Acti ve * RETIRED Are you blind or do you have serious difficulty seeing, even when wearing glasses? Answer Date of Assessment Author Status No 10/02/2021 12:38 PM RETAIL BUSINESS ANALYST Acti ve * Do you have serious difficulty walking or climbing stairs? Answer Date of Assessment Author Status No 10/02/2021 12:38 PM RETAIL BUSINESS ANALYST Annette Jorge R N Active * Do you have difficulty dressing or bathing? Answer Date of Assessment Author Status No 10/02/2021 12:38 PM RETAIL BUSINESS ANALYST Annette Jorge R N Active * Because of a physical, mental, or emotional condition, do you have difficulty doing errands alone such as visiting a doctor's office or shopping? Answer Date of Assessment Author Status No 10/02/2021 12:38 PM RETAIL BUSINESS ANALYST Annette Jorge R N Active documented as of this encounter Mental Status * Because of a physical, mental, or emotional condition, do you have serious difficulty concentrating, remembering, or making decisions? Answer Entry Date Author Status No 10/02/2021 12:38 PM RETAIL BUSINESS ANALYST Annette Jorge R N Active documented in this encounter Progress Notes * Federico Amador MD - 10/27/2021 1:20 PM CST Reason for Visit: Postop Followup (lap reversal of jordan's(09/22/2021)) History of Present Illness: Natan Patel is a 66-year-old male status post laparoscopic reversal of Jordan's procedure on September 22, 2021. He is doing relatively well in denies any nausea, vomiting, change in bowel habits, abdominal pain, fevers or chills. He is eating well and having well formed stools. He states thatthere is slight redness at the previous colostomy site. No other pertinent issues or concerns. ROS: Review of Systems Constitutional: Negative. HENT: Negative. Eyes: Negative. Respiratory: Negative. Cardiovascular: Negative. Gastrointestinal: Negative. Genitourinary: Negative. Musculoskeletal: Negative. Skin: Negative. Neurological: Negative. Endo/Heme/Allergies: Negative. Psychiatric/Behavioral: Negative. Medications: Current Outpatient Medications: ??? AMLODIPINE 5 MG tablet, Take 1 tablet (5 mg total) by mouth daily. (Patient taking differently:Take 1 tablet by mouth daily. Indications: High Blood Pressure Disorder), Disp: 30 tablet, Rfl: 0 ??? Ascorbic Acid (VITAMIN C) 100 MG [...] 1 ??? Cholecalciferol (VITAMIN D) 50 MCG (1999 [...] tablet (50 mg total) by mouth daily. (Patient taking differently: Take 1 tablet by mouth daily. Indications: High Blood Pressure Disorder), Disp: 30 tablet, Rfl: 0 ??? simethicone (GAS-X EXTRA STRENGTH) 125 MG chewable tablet, Chew 125 mg by mouth every 6 (six) hours as needed. Indications: Gas Pain, Disp: , Rfl: ??? sulfamethoxazole-trimethoprim (BACTRIM DS) 800-160 MG tablet, Take 1 tablet by mouth 2 (two) times daily for 10 days., Disp: 20 tablet, Rfl: 0 ??? sulfamethoxazole-trimethoprim 800-160 MG tablet, Take 1 tablet by mouth 2 (two) times daily for10 days., Disp: 20 tablet, Rfl: 0 ??? vitamin B-12 (CYANOCOBALAMIN) [...] COLON SURGERY 03/18/2021 colostomy r/t perferation ??? COLONOSCOPY N/A 2013 ??? COLONOSCOPY N/A 08/13/2021 colonoscopy via rectum and ostomy with polypectomy and biopsy performed by Federico Amador MD at [facility] OR ??? COLOSTOMY reversable ??? HERNIA REPAIR Right [facility] ??? HERNIA REPAIR Left [facility] ??? NECK/CHEST PROCEDURE UNLISTED Right [facility], re-built right side of neck. ??? SMALL INTESTINE SURGERY bowel rupture ??? TOTAL KNEE ARTHROPLASTY Bilateral ZANA Partial KR, done @ [facility] Social History Tobacco Use ??? Smoking status: [...] appearance. He is well-developed. He is not ill-appearing or diaphoretic. HENT: Head: Normocephalic and atraumatic. Right Ear: External ear normal. Left Ear: External ear normal. Nose: Nose normal. Mouth/Throat: Pharynx: No oropharyngeal exudate. Eyes: General: No scleral icterus. Right eye: [...] rebound. Hernia: No hernia is present. Comments: Left mid quadrant: There is a focal area of erythema at the site of suture. Suture removed without incident, swabbed with Betadine. No drainage noted. Musculoskeletal: General: No tenderness or deformity. Normal range of motion. Cervical back: Normal range of motion and neck supple. Skin: General: Skin is warm and dry. Findings: No rash. Neurological: Mental Status: He is alert and oriented to person, place, and time. Psychiatric: Mood and Affect: Mood normal. Behavior: Behavior normal. Vitals: 10/27/21 1321 Patient Position: Sitting BP Location: Left arm Cuff size: Adult Regular BP: 140/70 Pulse: 83 Body mass index is 25.37 kg/m??. Diagnoses/Impression: 1. Status post Neel procedure ([facility]) sulfamethoxazole-trimethoprim (BACTRIM DS) 800-160 MG tablet sulfamethoxazole-trimethoprim 800-160 MG tablet Recommendations and Plan: Natan Patel is a 66-year-old male status post laparoscopic reversal of Jordan's. Doing relatively well. I have prescribed Bactrim double strength for 10 days for the erythema of the previous colostomy site. Follow-up in 6 weeks, sooner should the need arise. Federico Amador MD Referring Provider: Dustin PCP: LORIE CASTANON MD [place] BUSINESS ANALYST documented in this encounter Plan of Treatment Upcoming Encounters Date Type Department Care Team (Late st Contact Info) Description 01/27/2025 7:00 AM CDT Office Visit [facility] Medical Group Family & Internal Medicine - [place] [address] [place] [address] [place] [address] [place], [place] [phone] 10/22/2025 9:15 AM RETAIL BUSINESS ANALYST Office Visit [facility] [address] Mily Gan MD [address] [phone] documented as of this encounter Goals Goal [...] Visit Diagnoses Diagnosis Status post Neel procedure (CMS/HCC HHS/HCC)- Primary documented in this encounter Care Teams Technical Director Relationship Specialty Start Date End Date Lorie Castanon MD PCP - General INTERNAL MEDICINE 01/15/20 02/09/23 documented as of this encounter
--- OUTSIDE RECORDS SUMMARY | 2024-11-02 08:01 | XMS_ITS | Encounter Summary ---
Author Organization [facility] Address [address] [place] [address]. [place] [address] [place] [address] Care Team Prov[address] Care Court Attendant Name Role Phone Lorie Chan MD Primary Care Provider [phone] Moraima Toledo RN Unavailable [phone] Reason for Visit * Reason Onset Date Comments Orders 10/18/2021 Encounter Details Date Type Department Care Team (Late st Contact Info) Description 10/18/2021 Telephone [facility] Medical [facility] General Surgery - [place] [address] [facility], [address] [place] [address] Federico Mayer MD [address] [place] [address] Orders Social History Tobacco Use Types Packs/Day Years [...] on file Legal Sex Male 9:58 PM DIABETES TERRITORY MANAGER Gender Identity Not on file Sexual Orientation Not on file COVID-19 Exposure Response Date Recorded In the last month, have you been in contact with someone who was confirmed or suspected to have Coronavirus / COVID-19? No / Unsure 10/15/2021 2:25 PM DIABETES TERRITORY MANAGER documented as of this encounter Functional Status * RETIRED Are you deaf or do you have serious difficulty hearing Answer Date of Assessment Author Status No 10/02/2021 12:38 PM DIABETES TERRITORY MANAGER Acti ve * RETIRED Are you blind or do you have serious difficulty seeing, even when wearing glasses? Answer Date of Assessment Author Status No 10/02/2021 12:38 PM DIABETES TERRITORY MANAGER Acti ve * Do you have serious difficulty walking or climbing stairs? Answer Date of Assessment Author Status No 10/02/2021 12:38 PM DIABETES TERRITORY MANAGER Annette Jorge, R N Active * Do you have difficulty dressing or bathing? Answer Date of Assessment Author Status No 10/02/2021 12:38 PM DIABETES TERRITORY MANAGER Annette Jorge, R N Active * Because of a physical, mental, or emotional condition, do you have difficulty doing errands alone such as visiting a doctor's office or shopping? Answer Date of Assessment Author Status No 10/02/2021 12:38 PM DIABETES TERRITORY MANAGER Annette Jorge, R N Active documented as of this encounter Mental Status * Because of a physical, mental, or emotional condition, do you have serious difficulty concentrating, remembering, or making decisions? Answer Entry Date Author Status No 10/02/2021 12:38 PM DIABETES TERRITORY MANAGER Annette Jorge, R N Active documented in this encounter Progress Notes * Tyler Caballero MA - 10/18/2021 11:07 AM CST [facility] home health called and they are going out to look at the wound and bandage it. Patient is going to discharged from home health this weekend. ETES TERRITORY MANAGER documented in this encounter Plan of Treatment Upcoming Encounters Date Type Department Care Team (Late st Contact Info) Description 01/27/2025 7:00 AM CDT Office Visit [facility] Medical Group Family & Internal Medicine - [place] [address] [place] [address] [place] [address] [place], [place] [phone] 10/22/2025 9:15 AM DIABETES TERRITORY MANAGER [facility] [address] [place] [address] Mily Gan MD [facility] [address] [place] [address] documented as of this encounter [...] on filedocumented in this encounter Care Teams Court Attendant Relationship Specialty Start Date End Date Lorie Chan MD PCP - General INTERNAL MEDICINE 01/15/20 02/09/23 Moraima Toledo, RN [address] [place] [address] Supervisor Carding (Ambulatory) REGISTERED NURSE 09/23/21 documented as of this encounter
--- OUTSIDE RECORDS SUMMARY | 2024-11-02 08:01 | XMS_ITS | Encounter Summary ---
Author Organization [facility] Address [address] [place] [address]. [place], [place] [address] [place] [address] Care Team Providers Care Voicer Name Role Phone Lorie Chan MD Primary Care Provider [phone] Moraima Toledo RN Unavailable [phone] Reason for Visit * Auth/Cert Specialty Diagnoses / Procedures Referred By Shelby t Referred To Contact Home Health Services / [facility] HOME HEALTH [facility] Home Care [facility] [address] [facility] [address] [place] [address] Phone: tel: fax: Referral ID Status Reason Start Date Expiration Date Visits Re quested Visits Authorized [id number] 1 1 Encounter Details Date Type Department Care Team (Late st Contact Info) Description 10/18/2021 9:00 AM CENTRAL STERILIZATION TECHNICIAN Home Care Visit [facility] Home Care [facility] [address] [facility] [address] [place] [phone] Libby Syed RN [phone] (Work) SN HOME VISIT Social History Tobacco Use [...] on file Legal Sex Male 9:58 PM CENTRAL STERILIZATION TECHNICIAN Gender Identity Not on file Sexual Orientation Not on file COVID-19 Exposure Response Date Recorded In the last month, have you been in contact with someone who was confirmed or suspected to have Coronavirus / COVID-19? No / Unsure 10/15/2021 2:25 PM CENTRAL STERILIZATION TECHNICIAN documented as of this encounter Last Filed Vital Signs Vital Sign Reading Time Taken Comments Blood Pressure 126/70 10/18/2021 9:05 AM CENTRAL STERILIZATION TECHNICIAN Pulse 78 10/18/2021 9:05 AM CENTRAL STERILIZATION TECHNICIAN Temperature - - Respiratory Rate 18 10/18/2021 9:05 AM CENTRAL STERILIZATION TECHNICIAN Oxygen Saturation 98% 10/18/2021 9:05 AM CENTRAL STERILIZATION TECHNICIAN room air Inhaled Oxygen Concentration - - Weight - - Height - - Body Mass Index - - documented in this encounter Functional Status * RETIRED Are you deaf or do you have serious difficulty hearing Answer Date of Assessment Author Status No 10/02/2021 12:38 PM CENTRAL STERILIZATION TECHNICIAN Acti ve * RETIRED Are you blind or do you have serious difficulty seeing, even when wearing glasses? Answer Date of Assessment Author Status No 10/02/2021 12:38 PM CENTRAL STERILIZATION TECHNICIAN Acti ve * Do you have serious difficulty walking or climbing stairs? Answer Date of Assessment Author Status No 10/02/2021 12:38 PM CENTRAL STERILIZATION TECHNICIAN Annette Jorge R N Active * Do you have difficulty dressing or bathing? Answer Date of Assessment Author Status No 10/02/2021 12:38 PM CENTRAL STERILIZATION TECHNICIAN Annette Jorge R N Active * Because of a physical, mental, or emotional condition, do you have difficulty doing errands alone such as visiting a doctor's office or shopping? Answer Date of Assessment Author Status No 10/02/2021 12:38 PM CENTRAL STERILIZATION TECHNICIAN Annette Jorge R N Active documented as of this encounter Mental Status * Because of a physical, mental, or emotional condition, do you have serious difficulty concentrating, remembering, or making decisions? Answer Entry Date Author Status No 10/02/2021 12:38 PM CENTRAL STERILIZATION TECHNICIAN Annette Jorge R N Active documented in this encounter Plan of Treatment Upcoming Encounters Date Type Department Care Team (Late st Contact Info) Description 01/27/2025 7:00 AM CDT Office Visit [facility] Medical Group Family & Internal Medicine [facility] [address] [place] [address] [place] [address] [place] [address] 10/22/2025 9:15 AM CENTRAL STERILIZATION TECHNICIAN Office Visit [facility] [address] Mily Gan MD [address] [phone] documented as of this encounter Goals Goal [...] Visit Type -SN - Home Visit Discipline -Correction Problems Problem Description Start Date Status Goals Interve ntions Wound Management Disciplines: Correction Skin integrity deficit related to: surgical wound wound. Location/site: abdomen 10/06/2021 Active 1 goal linked to scheduled/document ed intervention 1 problem intervention scheduled/document ed in this visit 6 goal interventions scheduled/document ed in this visit Collaboration of Care Disciplines: Correction Collaboration for safe care. 10/06/2021 Active 2 goals linked to scheduled/document ed interventions 4 goal interventions scheduled/document ed in this visit Nutritional concerns Disciplines: Correction Inadequate/imbala nced nutritional concerns 10/06/2021 Active 1 goal linked to scheduled/document ed intervention 1 goal intervention scheduled/document ed in this visit Pulse Oximetry Disciplines: Correction Skilled assessment and monitoring of O2 saturations. 10/06/2021 Active 1 goal linked to scheduled/document ed intervention 1 goal intervention scheduled/document ed in this visit Fall Precautions Disciplines: Correction Patient at risk for falls or has [...] Wound Measurement Description: Wound measured weekly by HH Agency (see wound assessment form). Problem:Wound Management Goal:Patient integumentary care needs met without signs/symptoms of complications Completed Instruct infection prevention Description: Instruct Patient and in signs/symptoms of wound infection. Problem:Wound Management Goal:Patient integumentary care needs met without signs/symptoms of complications Completed Negative pressure wound therapy Description: - SN to perform dressing change to left, abdomen surgical wound Monday, Monday, and Monday. - Dressing change to consist of: Remove old dressing (May soak with saline prior to removing as needed). Cleanse with, saline Line wound bed with transparent drape, prior to placing foam. Place black foam into wound cavity. May apply, transparent dressing, skin prep, skin protectant, to periwound skin.. Secure with transparent adhesive drape. Settings: Cycle-Continuous. Pressure-125 mmHg. Intensity-Titrate to tolerance. Problem:Wound Management Goal:Patient integumentary care needs met without signs/symptoms of complications Completed Completed. Patient had wound vac removed and discontinued on Monday by Dr. Mayer. Evaluate effectiveness Description: Assess patient's current nutritional [...] signs/symptoms of complications Completed Home medication management instructed, reviewed with patient. Patient verbalizes understanding of anticoagulation therapy purpose, possible side effects and complications, and bleeding precautions, strategies to prevent infection, strategies to prevent skin breakdown, treatment regimen and the importance of adherence and when to contact the physician, HH, and/or EMS. Assess Skin Integrity Description: Skilled observation and assessment of wound. Problem:Wound Management Goal:Patient integumentary care needs met without signs/symptoms of complications Completed Instruct wound care Description: Patient and/or caregiver to remove dressing from left abdominal incision and apply Band-Aid daily and as needed if soiled and/or loosened. May leave open to air when no longer having drainage. Problem:Wound Management Completed Assess Vital Signs Description: Obtain and record vital signs. Vital signs- report to provider if: BP: systolic blood pressure <90 or >160, diastolic blood pressure<60 or >90; temperature >100.5 F; pulse <60 or >100 bpm; respiratory rate <12 or >28/min; SPO2 <90%. Problem:Collaboratio n of Care Goal:Patient safety met through collaboration for safe care. Completed Vital Signs -report to provider if: BP:?? systolic blood pressure <90 or >160; diastolic blood pressure <60 or >90. Pulse: <60 or >100 bpm. Respiratory Rate:?? <12 or >28 /min. Temperature:?? >100.5 F. SPO2: <90%.? Plan Towards Discharge Description: Document Patient progress towards discharge. Problem:Collaboratio n of Care Goal:Patient safety met through collaboration for safe care. Completed Care Coordination Description: Coordinate care with patient regarding plan of care. Problem:Collaboratio n of Care Goal:Patient safety met through collaboration for safe care. Completed Plan for Next Visit Description: Next visit plan summation Problem:Collaboratio n of Care Goal:Patient safety met through collaboration for safe care. Completed Skilled nurse reviewed next skilled nurse visit scheduled for Monday for ongoing monitoring of incision to abdomen, assessment, vs, and education on medications, patient agreeable and verbalized understanding. Instruct diet Description: Instruct on As Tolerated diet and any fluid restrictions/requireme nts. Problem:Nutritional concerns Goal:Nutritional Status for Optimal Health Completed SN to obtain pulse ox reading Description: SN to obtain pulse oximetry reading as ordered. Evaluate the effectiveness of current therapy, and notify physician of O2 saturations below 90%. Problem:Pulse Oximetry Goal:SN Pulse Oximetry Completed documented in this encounter Care Teams Voicer Relationship Specialty Start Date End Date Lorie Chan MD PCP - General INTERNAL MEDICINE 01/15/20 02/09/23 Moraima Toledo, RN [address] [place] [address] Dispatch Officer (Ambulatory) REGISTERED NURSE 09/23/21 documented as of this encounter
--- OUTSIDE RECORDS SUMMARY | 2024-11-02 08:01 | XMS_ITS | Encounter Summary ---
Author Organization [facility] Address [address] [place] [address]. [place], [place] [address] [place] [address] Care Team Providers Care Primary Care Pediatrician Name Role Phone Lorie Chan MD Primary Care Provider [phone] Reason for Visit * Auth/Cert Specialty Diagnoses / Procedures Referred By Shelby jama Referred To Contact Home Health Services / [facility] HOME HEALTH [facility] Home Care [facility] [address] [facility] [address] [place] [address] Phone: tel: fax: Referral ID Status Reason Start Date Expiration Date Visits Re quested Visits Authorized [id number] 1 1 Encounter Details Date Type Department Care Team (Late st Contact Info) Description 10/22/2021 10:30 AM AD CLERK Home Care Visit [facility] Home Care [facility] [address] [facility] [address] [place] [phone] Libby Syed, GINA [phone] (Work) SN OASIS DISCHARGE/ASSESSMENT Social History Tobacco Use Types Packs/Day Years [...] on file Legal Sex Male 9:58 PM AD CLERK Gender Identity Not on file Sexual Orientation Not on file COVID-19 Exposure Response Date Recorded In the last month, have you been in contact with someone who was confirmed or suspected to have Coronavirus / COVID-19? No / Unsure 10/15/2021 2:25 PM AD CLERK documented as of this encounter Last Filed Vital Signs Vital Sign Reading Time Taken Comments Blood Pressure 120/66 10/22/2021 10:34 AM AD CLERK Pulse 68 10/22/2021 10:34 AM AD CLERK Temperature 36.2 ??C (97.2 ??F) 10/22/2021 10:[address] Respiratory Rate 18 10/22/2021 10:34 AM AD CLERK Oxygen Saturation 98% 10/22/2021 10:34 AM AD CLERK room air Inhaled Oxygen Concentration - - Weight - - Height - - Body Mass Index - - documented in this encounter Functional Status * RETIRED Are you deaf or do you have serious difficulty hearing Answer Date of Assessment Author Status No 10/02/2021 12:38 PM AD CLERK Acti ve * RETIRED Are you blind or do you have serious difficulty seeing, even when wearing glasses? Answer Date of Assessment Author Status No 10/02/2021 12:38 PM AD CLERK Acti ve * Do you have serious difficulty walking or climbing stairs? Answer Date of Assessment Author Status No 10/02/2021 12:38 PM AD CLERK Annette Jorge R N Active * Do you have difficulty dressing or bathing? Answer Date of Assessment Author Status No 10/02/2021 12:38 PM AD CLERK Annette Jorge R N Active * Because of a physical, mental, or emotional condition, do you have difficulty doing errands alone such as visiting a doctor's office or shopping? Answer Date of Assessment Author Status No 10/02/2021 12:38 PM AD CLERK Annette Jorge R N Active documented as of this encounter Mental Status * Because of a physical, mental, or emotional condition, do you have serious difficulty concentrating, remembering, or making decisions? Answer Entry Date Author Status No 10/02/2021 12:38 PM AD CLERK Annette Jorge R N Active documented in this encounter Progress Notes * Libby Leary RN - 10/22/2021 11:00 AM CST Patient discharged from agency at this time with goals met. Pt admitted to Home Health for colostomy takedown surgery on October 06, 2021. Brief Summary of Care: Skilled nurse provided assessments, wound management with wound vac, vs, education on medications, safety and disease process. Instructed patient on signs/symptoms of infectionand infection prevention. Patient's wound vac discontinued in Dr. Mayer's office on Monday, October 15, 2021. Surgical incision healing with 1 suture intact, no drainage, no redness or warmth, no s igns/symptoms of infection. Patient reports daily bowel movements. Patient knowledgeable of all medications, dosing and frequency. Patient requesting discharge from agency at this time with goals met. Patient to follow up with Dr. Mayer on October 27, 2021. Discharge instructions provided, patient verbalized understanding. Pt received the following services Home Health Long-Term. Pt Agency discharged on October 22, 2021 Pt Condition/Status at Discharge: to self-care with outcomes met Recommendations for follow-up care/post-acute care: Follow up with MD as scheduled for [facility]. CLERK documented in this encounter Plan of Treatment Upcoming Encounters Date Type Department Care Team (Late st Contact Info) Description 01/27/2025 7:00 AM CDT Office Visit [facility] Medical Group Family & Internal Medicine - [place] [id number] [place] [phone] [place] [phone] [place] [phone] 10/22/2025 9:15 AM AD CLERK Office Visit [facility] [address] [place] [address] Mily Gan MD [facility]. [facility] [address] [place], [place] [phone] documented as of this encounter Goals Goal [...] Plan Visit Details Visit Type -SN - OASIS Disch arge Discipline -Long-Term Problems Problem Description Start Date Status Goals Interve ntions Wound Management Disciplines: Long-Term Skin integrity deficit related to: surgical wound wound. Location/site: abdomen 10/06/2021 Resolved on 10/22/2021 1 goal linked to scheduled/document ed intervention 1 problem intervention scheduled/document ed in this visit 5 goal interventions scheduled/document ed in this visit Collaboratio n of Care Disciplines: Long-Term Collaboration for safe care. 10/06/2021 Resolved on 10/22/2021 2 goals linked to scheduled/document ed interventions 4 goal interventions scheduled/document ed in this visit Nutritional concerns Disciplines: Long-Term Inadequate/imbal anced nutritional concerns 10/06/2021 Resolved on 10/22/2021 1 goal linked to scheduled/document ed intervention 1 goal intervention scheduled/document ed in this visit Pulse Oximetry Disciplines: Long-Term Skilled assessment and monitoring of O2 saturations. 10/06/2021 Resolved on 10/22/2021 1 goal linked to scheduled/document ed intervention 1 goal intervention scheduled/document ed in this visit Fall Precautions Disciplines: Long-Term Patient at risk for falls or has had recent fall occurrence(s). 10/14/2021 Resolved on 10/22/2021 1 goal linked to scheduled/document ed intervention [...] signs of infection by 12/04/21. Wound Management Completed Yes Patient meets homebound requirements. Description: Patient meets requirements of homebound status as evidenced by 12/04/21. Collaboration of Care Completed Yes Patient safety met through collaboration for safe care. Description: Clinicians will communicate patient care and safety needs during episode of care through 12/04/21. Collaboration of Care Completed Yes Nutritional Status for Optimal Health Description: Patient will demonstrate adequate nutritional status as evidenced by stabilization of weight and intake of required nutrients for optimal health and functioning by 12/04/21. Nutritional concerns Completed Yes SN Pulse Oximetry Description: Patient's oxygen saturation will remain at or above 90% through 12/04/21 Pulse Oximetry Completed Yes Patient/caregiver maintains a safe environment. Description: Patient/caregiver will demonstrate ability to maintain a safe environment without injuries/falls by 12/04/21. Fall Precautions Completed Yes Interventions Intervention Associated Problem/Goal Status Variance Visit [...] signs/symptoms of complications Completed Home medication management instructed with patient. Patient demonstrates ability to perform proper handwashing techniques and safe home medication administration. Assess Skin Integrity [...] Completed documented in this encounter Care Teams Primary Care Pediatrician Relationship Specialty Start Date End Date Lorie Chan MD PCP - General INTERNAL MEDICINE 01/15/20 02/09/23 documented as of this encounter
--- OUTSIDE RECORDS SUMMARY | 2024-11-02 08:01 | XMS_ITS | Encounter Summary ---
Author Organization [facility] Address [address] [place] [address]. [place], [place] [address] [place] [address] Care Team Providers Care Veneer Marker Name Role Phone Lorie Chan MD Primary Care Provider [phone] Encounter Details Date Type Department Care Team (Latest Contact Info) Description 10/27/2021 Travel Social History Tobacco Use Types Packs/Day [...] Legal Sex Male 9:58 PM HEAVY EQUIPMENT OPERATOR Gender Identity Not on file Sexual Orientation Not on file COVID-19 Exposure Response Date Recorded In the last month, have you been in contact with someone who was confirmed or suspected to have Coronavirus / COVID-19? No / Unsure 10/27/2021 1:03 PM HEAVY EQUIPMENT OPERATOR documented as of this encounter Functional Status * RETIRED Are you deaf or do you have serious difficulty hearing Answer Date of Assessment Author Status No 10/02/2021 12:38 PM HEAVY EQUIPMENT OPERATOR Acti ve * RETIRED Are you blind or do you have serious difficulty seeing, even when wearing glasses? Answer Date of Assessment Author Status No 10/02/2021 12:38 PM HEAVY EQUIPMENT OPERATOR Acti ve * Do you have serious difficulty walking or climbing stairs? Answer Date of Assessment Author Status No 10/02/2021 12:38 PM HEAVY EQUIPMENT OPERATOR Annette Jorge, R N Active * Do you have difficulty dressing or bathing? Answer Date of Assessment Author Status No 10/02/2021 12:38 PM HEAVY EQUIPMENT OPERATOR Annette Jorge, R N Active * Because of a physical, mental, or emotional condition, do you have difficulty doing errands alone such as visiting a doctor's office or shopping? Answer Date of Assessment Author Status No 10/02/2021 12:38 PM HEAVY EQUIPMENT OPERATOR Annette Jorge, R N Active documented as of this encounter Mental Status * Because of a physical, mental, or emotional condition, do you have serious difficulty concentrating, remembering, or making decisions? Answer Entry Date Author Status No 10/02/2021 12:38 PM HEAVY EQUIPMENT OPERATOR Annette Jorge, R N Active documented in this encounter Plan of Treatment Upcoming Encounters Date Type Department Care Team (Late st Contact Info) Description 01/27/2025 7:00 AM CDT Office Visit [facility] Medical Group Family & Internal Medicine [facility] [id number] [place] [phone] Ilir Nelson PA [address] [place] [phone] 10/22/2025 9:15 AM HEAVY EQUIPMENT OPERATOR Office Visit [facility] [address] Mily Gan MD [address] [address] documented as of this encounter Goals Goal [...] on filedocumented in this encounter Care Teams Veneer Marker Relationship Specialty Start Date End Date Lorie Chan MD PCP - General INTERNAL MEDICINE 01/15/20 02/09/23 documented as of this encounter
--- OUTSIDE RECORDS SUMMARY | 2024-11-02 08:02 | XMS_ITS | Encounter Summary ---
Author Organization [facility] Address [address] [place] [address]. [place], [place] [address] [place] [address] Care Team Providers Care Disintegrator Operator Name Role Phone Lorie Chan MD Primary Care Provider [phone] Moraima Toledo RN Unavailable [phone] Reason for Visit * Auth/Cert Specialty Diagnoses / Procedures Referred By Shelby t Referred To Contact Home Health Services / [facility] HOME HEALTH [facility] Home Care [facility] [address] [facility] [address] [place] [address] Phone: tel: fax: Referral ID Status Reason Start Date Expiration Date Visits Re quested Visits Authorized [id number] 1 1 Encounter Details Date Type Department Care Team (Late st Contact Info) Description 10/13/2021 11:45 AM COMPUTER INSTALLATION ENGINEER Home Care Visit [facility] Home Care [facility] [address] [facility] [address] [place] [phone] Sherrie Patton, RN [phone] (Work) SN HOME VISIT Social History Tobacco [...] on file Legal Sex Male 9:58 PM COMPUTER INSTALLATION ENGINEER Gender Identity Not on file Sexual Orientation Not on file COVID-19 Exposure Response Date Recorded In the last month, have you been in contact with someone who was confirmed or suspected to have Coronavirus / COVID-19? No / Unsure 10/11/2021 10:27 AM COMPUTER INSTALLATION ENGINEER documented as of this encounter Last Filed Vital Signs Vital Sign Reading Time Taken Comments Blood Pressure 122/64 10/13/2021 12:59 PM COMPUTER INSTALLATION ENGINEER Pulse 76 10/13/2021 12:59 PM COMPUTER INSTALLATION ENGINEER Temperature 36.3 ??C (97.3 ??F) 10/13/2021 12:[address] Respiratory Rate 20 10/13/2021 12:59 PM COMPUTER INSTALLATION ENGINEER Oxygen Saturation 98% 10/13/2021 12:59 PM COMPUTER INSTALLATION ENGINEER Inhaled Oxygen Concentration - - Weight - - Height - - Body Mass Index - - documented in this encounter Functional Status * RETIRED Are you deaf or do you have serious difficulty hearing Answer Date of Assessment Author Status No 10/02/2021 12:38 PM COMPUTER INSTALLATION ENGINEER Acti ve * RETIRED Are you blind or do you have serious difficulty seeing, even when wearing glasses? Answer Date of Assessment Author Status No 10/02/2021 12:38 PM COMPUTER INSTALLATION ENGINEER Acti ve * Do you have serious difficulty walking or climbing stairs? Answer Date of Assessment Author Status No 10/02/2021 12:38 PM COMPUTER INSTALLATION ENGINEER Annette Jorge R N Active * Do you have difficulty dressing or bathing? Answer Date of Assessment Author Status No 10/02/2021 12:38 PM COMPUTER INSTALLATION ENGINEER Annette Jorge R N Active * Because of a physical, mental, or emotional condition, do you have difficulty doing errands alone such as visiting a doctor's office or shopping? Answer Date of Assessment Author Status No 10/02/2021 12:38 PM COMPUTER INSTALLATION ENGINEER Annette Jorge R N Active documented as of this encounter Mental Status * Because of a physical, mental, or emotional condition, do you have serious difficulty concentrating, remembering, or making decisions? Answer Entry Date Author Status No 10/02/2021 12:38 PM COMPUTER INSTALLATION ENGINEER Annette Jorge R N Active documented in this encounter Plan of Treatment Upcoming Encounters Date Type Department Care Team (Late st Contact Info) Description 01/27/2025 7:00 AM CDT Office Visit [facility] Medical Group Family & Internal Medicine - [place] [address] [place] [address] [place] [address] [place], [place] [phone] 10/22/2025 9:15 AM COMPUTER INSTALLATION ENGINEER Office Visit [facility] [address] [address] Mily Gan MD [address] [address] documented as of this encounter [...] Visit Type -SN - Home Visit Discipline -Detention Problems Problem Description Start Date Status Goals Interve ntions Wound Management Disciplines: Detention Skin integrity deficit related to: surgical wound wound. Location/site: abdomen 10/06/2021 Active 1 goal linked to scheduled/document ed intervention 7 goal interventions scheduled/document ed in this visit Collaboration of Care Disciplines: Detention Collaboration for safe care. 10/06/2021 Active 2 goals linked to scheduled/document ed interventions 4 goal interventions scheduled/document ed in this visit Nutritional concerns Disciplines: Detention Inadequate/imbala nced nutritional concerns 10/06/2021 Active 1 goal linked to scheduled/document ed intervention 1 goal intervention scheduled/document ed in this visit Pulse Oximetry Disciplines: Detention Skilled assessment and monitoring of O2 saturations. 10/06/2021 Active 1 goal linked to scheduled/document ed intervention 1 goal intervention scheduled/document ed in this visit Fall Precautions Disciplines: Detention Patient at risk for falls or has [...] met without signs/symptoms of complications Completed Instruct on drain care Description: Instruct Patient in drain care. Problem:Wound Management Goal:Patient integumentary care needs met without signs/symptoms of complications Completed drain removed and no dressing needed at this time due to no drainage on bandage. Left open to air Instruct infection prevention Description: Instruct Patient and [...] needs met without signs/symptoms of complications Completed patient tolerated well Evaluate effectiveness Description: Assess patient's current nutritional [...] needs met without signs/symptoms of complications Completed Assess Skin Integrity Description: Skilled observation and assessment of wound. Problem:Wound Management Goal:Patient integumentary care needs met without signs/symptoms of complications Completed Assess Vital Signs Description: Obtain and [...] concerns Goal:Nutritional Status for Optimal Health Completed skilled nurse instructed patient in protien intake for wound healing - patient states understanding at this time SN to obtain pulse ox reading Description: SN to obtain pulse oximetry reading as ordered. Evaluate the effectiveness of current therapy, and notify physician of O2 saturations below 90%. Problem:Pulse Oximetry Goal:SN Pulse Oximetry Completed documented in this encounter Care Teams Disintegrator Operator Relationship Specialty Start Date End Date Lorie Chan MD PCP - General INTERNAL MEDICINE 01/15/20 02/09/23 Moraima Toledo, RN [address] [place] [address] Sleep Medicine Physician (Ambulatory) REGISTERED NURSE 09/23/21 documented as of this encounter
--- OUTSIDE RECORDS SUMMARY | 2024-11-02 08:02 | XMS_ITS | Encounter Summary ---
Author Organization [facility] Address [address] [place] [address]. [place], [place] [phone] [place] [address] Care Team Providers Care Automotive Teacher Name Role Phone Lorie Chan MD Primary Care Provider [phone] Moraima Toledo RN Unavailable [phone] Encounter Details Date Type Department Care Team (Latest Contact Info) Description 10/08/2021 Travel Social History Tobacco Use Types Packs/Day [...] on file Legal Sex Male 9:58 PM SACK MAKER Gender Identity Not on file Sexual Orientation Not on file COVID-19 Exposure Response Date Recorded In the last month, have you been in contact with someone who was confirmed or suspected to have Coronavirus / COVID-19? No / Unsure 10/08/2021 3:43 PM SACK MAKER documented as of this encounter Functional Status * RETIRED Are you deaf or do you have serious difficulty hearing Answer Date of Assessment Author Status No 10/02/2021 12:38 PM SACK MAKER Acti ve * RETIRED Are you blind or do you have serious difficulty seeing, even when wearing glasses? Answer Date of Assessment Author Status No 10/02/2021 12:38 PM SACK MAKER Acti ve * Do you have serious difficulty walking or climbing stairs? Answer Date of Assessment Author Status No 10/02/2021 12:38 PM SACK MAKER Annette Jorge R N Active * Do you have difficulty dressing or bathing? Answer Date of Assessment Author Status No 10/02/2021 12:38 PM SACK MAKER Annette Jorge R N Active * Because of a physical, mental, or emotional condition, do you have difficulty doing errands alone such as visiting a doctor's office or shopping? Answer Date of Assessment Author Status No 10/02/2021 12:38 PM SACK MAKER Annette Jorge R N Active documented as of this encounter Mental Status * Because of a physical, mental, or emotional condition, do you have serious difficulty concentrating, remembering, or making decisions? Answer Entry Date Author Status No 10/02/2021 12:38 PM SACK MAKER Annette Jorge R N Active documented in this encounter Plan of Treatment Upcoming Encounters Date Type Department Care Team (Late st Contact Info) Description 01/27/2025 7:00 AM CDT Office Visit [facility] Medical Group Family & Internal Medicine [facility] [address] [place] [phone] [place] [address] [place], [place] [phone] 10/22/2025 9:15 AM SACK MAKER Office Visit [facility] [address] Mily Gan MD [address] [address] documented as of this encounter Goals Goal [...] on filedocumented in this encounter Care Teams Automotive Teacher Relationship Specialty Start Date End Date Lorie Chan MD PCP - General INTERNAL MEDICINE 01/15/20 02/09/23 Moraima Toledo, GINA [address] [place] [address] Concession Stand Attendant (Ambulatory) REGISTERED NURSE 09/23/21 documented as of this encounter
--- OUTSIDE RECORDS SUMMARY | 2024-11-02 08:02 | XMS_ITS | Encounter Summary ---
Author Organization [facility] Address [address] [place] [address]. [place], [place] [address] [place] [address] Care Team Providers Care Industrial Sewer Name Role Phone Lorie Chan MD Primary Care Provider [phone] Moraima Toledo RN Unavailable [phone] Encounter Details Date Type Department Care Team (Latest Contact Info) Description 10/11/2021 Travel Social History Tobacco Use Types Packs/Day [...] on file Legal Sex Male 9:58 PM BRICK LOADER Gender Identity Not on file Sexual Orientation Not on file COVID-19 Exposure Response Date Recorded In the last month, have you been in contact with someone who was confirmed or suspected to have Coronavirus / COVID-19? No / Unsure 10/11/2021 10:27 AM BRICK LOADER documented as of this encounter Functional Status * RETIRED Are you deaf or do you have serious difficulty hearing Answer Date of Assessment Author Status No 10/02/2021 12:38 PM BRICK LOADER Acti ve * RETIRED Are you blind or do you have serious difficulty seeing, even when wearing glasses? Answer Date of Assessment Author Status No 10/02/2021 12:38 PM BRICK LOADER Acti ve * Do you have serious difficulty walking or climbing stairs? Answer Date of Assessment Author Status No 10/02/2021 12:38 PM BRICK LOADER Annette Jorge R N Active * Do you have difficulty dressing or bathing? Answer Date of Assessment Author Status No 10/02/2021 12:38 PM BRICK LOADER Annette Jorge R N Active * Because of a physical, mental, or emotional condition, do you have difficulty doing errands alone such as visiting a doctor's office or shopping? Answer Date of Assessment Author Status No 10/02/2021 12:38 PM BRICK LOADER Annette Jorge R N Active documented as of this encounter Mental Status * Because of a physical, mental, or emotional condition, do you have serious difficulty concentrating, remembering, or making decisions? Answer Entry Date Author Status No 10/02/2021 12:38 PM BRICK LOADER Annette Jorge R N Active documented in this encounter Plan of Treatment Upcoming Encounters Date Type Department Care Team (Late st Contact Info) Description 01/27/2025 7:00 AM CDT Office Visit [facility] Medical Group Family & Internal Medicine [facility] [address] [place] [phone] [place] [address] [place], [place] [phone] 10/22/2025 9:15 AM BRICK LOADER Office Visit [facility] [address] Mily Gan MD [address] [address] documented as of this encounter Goals Goal [...] on filedocumented in this encounter Care Teams Industrial Sewer Relationship Specialty Start Date End Date Lorie Chan MD PCP - General INTERNAL MEDICINE 01/15/20 02/09/23 Moraima Toledo, GINA [address] [place] [address] Science Specialist (Ambulatory) REGISTERED NURSE 09/23/21 documented as of this encounter
--- OUTSIDE RECORDS SUMMARY | 2024-11-02 08:02 | XMS_ITS | Encounter Summary ---
Author Organization [facility] Address [address] [place] [address]. [place], [place] [id number] [place] [address] Care Team Providers Care Nuclear Fuel Enrichment Technician Name Role Phone Lorie Chan MD Primary Care Provider [phone] Moraima Toledo RN Unavailable [phone] Reason for Visit * Auth/Cert Specialty Diagnoses / Procedures Referred By Shelby t Referred To Contact Home Health Services / [facility] Home Care [facility] [address] [facility] [address] [place] [address] Phone: tel: fax: Referral ID Status Reason Start Date Expiration Date Visits Re quested Visits Authorized [id number] 1 1 Encounter Details Date Type Department Care Team (Late st Contact Info) Description 10/11/2021 2:00 PM DISTRIBUTION ANALYST Home Care Visit [facility] Home Care [facility] [address] [facility] [address] [place] [address] Ria Murrieta RN SN HOME VISIT Social History Tobacco Use [...] on file Legal Sex Male 9:58 PM DISTRIBUTION ANALYST Gender Identity Not on file Sexual Orientation Not on file COVID-19 Exposure Response Date Recorded In the last month, have you been in contact with someone who was confirmed or suspected to have Coronavirus / COVID-19? No / Unsure 10/11/2021 10:27 AM DISTRIBUTION ANALYST documented as of this encounter Last Filed Vital Signs Vital Sign Reading Time Taken Comments Blood Pressure 120/78 10/11/2021 1:55 PM DISTRIBUTION ANALYST Pulse 74 10/11/2021 1:55 PM DISTRIBUTION ANALYST Temperature 36.4 ??C (97.5 ??F) 10/11/2021 1:55 PM CS T Respiratory Rate 18 10/11/2021 1:55 PM DISTRIBUTION ANALYST Oxygen Saturation 98% 10/11/2021 1:55 PM DISTRIBUTION ANALYST Inhaled Oxygen Concentration - - Weight - - Height - - Body Mass Index - - documented in this encounter Functional Status * RETIRED Are you deaf or do you have serious difficulty hearing Answer Date of Assessment Author Status No 10/02/2021 12:38 PM DISTRIBUTION ANALYST Acti ve * RETIRED Are you blind or do you have serious difficulty seeing, even when wearing glasses? Answer Date of Assessment Author Status No 10/02/2021 12:38 PM DISTRIBUTION ANALYST Acti ve * Do you have serious difficulty walking or climbing stairs? Answer Date of Assessment Author Status No 10/02/2021 12:38 PM DISTRIBUTION ANALYST Annette Jorge R N Active * Do you have difficulty dressing or bathing? Answer Date of Assessment Author Status No 10/02/2021 12:38 PM DISTRIBUTION ANALYST Annette Jorge R N Active * Because of a physical, mental, or emotional condition, do you have difficulty doing errands alone such as visiting a doctor's office or shopping? Answer Date of Assessment Author Status No 10/02/2021 12:38 PM DISTRIBUTION ANALYST Annette Jorge R N Active documented as of this encounter Mental Status * Because of a physical, mental, or emotional condition, do you have serious difficulty concentrating, remembering, or making decisions? Answer Entry Date Author Status No 10/02/2021 12:38 PM DISTRIBUTION ANALYST Annette Jorge R N Active documented in this encounter Plan of Treatment Upcoming Encounters Date Type Department Care Team (Late st Contact Info) Description 01/27/2025 7:00 AM CDT Office Visit [facility] Family & Internal Medicine - [place] [address] [place] [address] [place] [address] [place], [place] [id number] 10/22/2025 9:15 AM DISTRIBUTION ANALYST Office Visit [facility] [address] Mily Gan MD [address] [id number] documented as of this encounter Goals Goal [...] Visit Type -SN - Home Visit Discipline -Fdc Problems Problem Description Start Date Status Goals Interve ntions Wound Management Disciplines: Fdc Skin integrity deficit related to: surgical wound wound. Location/site: abdomen 10/06/2021 Active 1 goal linked to scheduled/document ed intervention 7 goal interventions scheduled/document ed in this visit Collaboration of Care Disciplines: Fdc Collaboration for safe care. 10/06/2021 Active 2 goals linked to scheduled/document ed interventions 7 goal interventions scheduled/document ed in this visit Nutritional concerns Disciplines: Fdc Inadequate/imbala nced nutritional concerns 10/06/2021 Active 1 goal linked to scheduled/document ed intervention 1 goal intervention scheduled/document ed in this visit Pulse Oximetry Disciplines: Fdc Skilled assessment and monitoring of O2 saturations. 10/06/2021 Active 1 goal linked to scheduled/document ed intervention 1 goal intervention scheduled/document ed in this visit Goals Goal Associated Problem Outcome Goal Met? [...] 90% through 12/04/21 Pulse Oximetry Progressing No Interventions Intervention Associated Problem/Goal Status [...] signs/symptoms of complications Completed Home medication management discussed with patient. Patient verbalizes understanding of disease process, causative factors, complication, and management related to. Assess Skin Integrity Description: Skilled observation and [...] met through collaboration for safe care. Completed Insurance Verification Description: Verify with patient/caregiver current insurance coverage. Problem:Collaboration of Care Goal:Patient safety met through collaboration for safe care. Completed Instruct Home Safety Description: Instruct Patient and on strategies/modificatio ns to home environment. Up as tolerated. Problem:Collaboration of Care Goal:Patient safety met through collaboration for safe care. Completed Instruct Disaster/Evacuation Plan Description: Instruct in planning and execution of disaster/evacuation plan. Assist Patient and in development or revision of plan as indicated. Problem:Collaboration of Care Goal:Patient safety met through [...] Completed documented in this encounter Care Teams Nuclear Fuel Enrichment Technician Relationship Specialty Start Date End Date Lorie Chan MD PCP - General INTERNAL MEDICINE 01/15/20 02/09/23 Moraima Toledo, GINA [address] [place] [address] Information Developer (Ambulatory) REGISTERED NURSE 09/23/21 documented as of this encounter
--- OUTSIDE RECORDS SUMMARY | 2024-11-02 08:02 | XMS_ITS | Encounter Summary ---
Author Organization [facility] Address [address] [place] [address]. [place], [place] [id number] [place] [address] Care Team Providers Care Web Merchant Name Role Phone Lorie Chan MD Primary Care Provider [phone] Moraima Toledo RN Unavailable [phone] Reason for Visit * Reason Comments Surgical Followup Surgery was on the 11/22 and was in hospital 12 days here at [facility] Encounter Details Date Type Department Care Team (Late st Contact Info) Description 10/11/2021 10:40 AM FULL STACK DEVELOPER Office Visit [facility] Family & Internal Medicine [address] [address] Bhanu Saldana, COMMUNICATION CLERK Surgical Followup (Surgery was on the 09/22 and was in hospital 12 days here at [facility]) Social History Tobacco Use Types Packs/Day Years [...] on file Legal Sex Male 9:58 PM FULL STACK DEVELOPER Gender Identity Not on file Sexual Orientation Not on file COVID-19 Exposure Response Date Recorded In the last month, have you been in contact with someone who was confirmed or suspected to have Coronavirus / COVID-19? No / Unsure 10/11/2021 10:27 AM FULL STACK DEVELOPER documented as of this encounter Last Filed Vital Signs Vital Sign Reading Time Taken Comments Blood Pressure 110/68 10/11/2021 10:35 AM FULL STACK DEVELOPER Pulse 69 10/11/2021 10:35 AM FULL STACK DEVELOPER Temperature 36.6 ??C (97.9 ??F) 10/11/2021 10:[address] Respiratory Rate 16 10/11/2021 10:35 AM FULL STACK DEVELOPER Oxygen Saturation 99% 10/11/2021 10:35 AM FULL STACK DEVELOPER Inhaled Oxygen Concentration - - Weight 71.8 kg (158 lb 6.4 oz) 10/11/2021 10:35 AM FULL STACK DEVELOPER Height 170.2 cm (5' 7 ) 10/11/2021 10:35 AM FULL STACK DEVELOPER Body Mass Index 24.81 10/11/2021 10:35 AM FULL STACK DEVELOPER documented in this encounter Functional Status * RETIRED Are you deaf or do you have serious difficulty hearing Answer Date of Assessment Author Status No 10/02/2021 12:38 PM FULL STACK DEVELOPER Acti ve * RETIRED Are you blind or do you have serious difficulty seeing, even when wearing glasses? Answer Date of Assessment Author Status No 10/02/2021 12:38 PM FULL STACK DEVELOPER Acti ve * Do you have serious difficulty walking or climbing stairs? Answer Date of Assessment Author Status No 10/02/2021 12:38 PM FULL STACK DEVELOPER Annette Jorge R N Active * Do you have difficulty dressing or bathing? Answer Date of Assessment Author Status No 10/02/2021 12:38 PM FULL STACK DEVELOPER Annette Jorge R N Active * Because of a physical, mental, or emotional condition, do you have difficulty doing errands alone such as visiting a doctor's office or shopping? Answer Date of Assessment Author Status No 10/02/2021 12:38 PM FULL STACK DEVELOPER Annette Jorge R N Active documented as of this encounter Mental Status * Because of a physical, mental, or emotional condition, do you have serious difficulty concentrating, remembering, or making decisions? Answer Entry Date Author Status No 10/02/2021 12:38 PM FULL STACK DEVELOPER Annette Jorge R N Active documented in this encounter Progress Notes * Bhanu Saldana NP - 10/11/2021 10:40 AM CST Reason for Visit: Surgical Followup (Surgery was on the 09/22 and was in hospital 12 days here at [facility]) History of Present Illness: Pt. Was admitted to: [facility] Pt was admitted on: 09/22/2021 Pt was discharged on:10/02/2021 Admit Diagnosis: Colostomy reversal Initial Nursing contact: See telephone encounter on: Discharge note from [facility] was reviewed Since Discharge: Natan has been doing better and has home health care coming in for wound vac Patient had colostomy reversal and was kept in hospital and ended up admitted and discharged on the10/02/2021. Patient has a wound vac to left lower abdomen but reports improvement ROS: Review of Systems Constitutional: Negative. Negative for fatigue and fever. HENT: Negative. Eyes: Negative. Respiratory: Negative. Negative for cough and shortness of breath. Cardiovascular: Negative. Negative for chest pain. Gastrointestinal: Negative for abdominal pain. Endocrine: Negative. Musculoskeletal: Negative. Negative for back pain. Skin: Negative. Wound vac in place to left lower abdomen Allergic/Immunologic: Negative. Negative for environmental allergies. Neurological: Negative. Hematological: Negative for adenopathy. Psychiatric/Behavioral: Negative. Negative for suicidal ideas (Denies). Medications: Current Outpatient Medications: ??? AMLODIPINE 5 [...] by Federico Mayer MD at [facility] OR ??? COLOSTOMY reversable ??? HERNIA REPAIR Right [facility] ??? HERNIA REPAIR Left [facility] ??? NECK/CHEST PROCEDURE UNLISTED Right [facility], re-built right side of neck. ??? SMALL INTESTINE SURGERY bowel rupture ??? TOTAL KNEE ARTHROPLASTY Bilateral ZANA Partial KR, done @ [facility] Social History Socioeconomic History ??? [...] ??? Father ??? Brother ??? Brother Alive PHQ-9: Over the last two weeks, how often have you been bothered by any of the following problems? 01/15/2020 01/12/2021 LITTLE INTEREST OR PLEASURE IN DOING THINGS 0-Not at All 0-Not at All FEELING DOWN, DEPRESSSED,OR HOPELESS 0-Not at All 0-Not at All PHQ2 DEPRESSION TOTAL SCORE 0 0 IF YOU CHECKED OFF ANY PROBLEMS Not difficult at all - Physical Exam Constitutional: Appearance: Normal appearance. Cardiovascular: Rate and Rhythm: Normal rate and regular rhythm. Pulmonary: Effort: Pulmonary effort is normal. Breath sounds: Normal breath sounds. Abdominal: General: Bowel sounds are normal. Palpations: Abdomen is soft. Comments: Wound improving to left lower abdomen Skin: General: Skin is warm. Neurological: Mental Status: He is alert. Psychiatric: Mood and Affect: Mood normal. Behavior: Behavior normal. Filed Vitals: 10/11/21 1035 BP: 110/68 Pulse: 69 Resp: 16 Temp: 97.9 ??F (36.6 ??C) TempSrc: Temporal SpO2: 99% Weight: 71.8 kg (158 lb 6.4 oz) Height: 5' 7 (1.702 m) Assessment Encounter Diagnose(s) ICD-10-CM ICD-9-CM SNOMED CT(R) 1. Colostomy status (CMS/HCC) Z93.3 V44.3 H/O: COLOSTOMY Recommendations and Plan: Keep scheduled follow up 1. Colostomy status (CMS/HCC) Follow with home health for wound Follow up with [facility] next week BHANU SALDANA NP 10/11/2021 11:13 AM STACK DEVELOPER documented in this encounter Plan of Treatment Upcoming Encounters Date Type Department Care Team (Late st Contact Info) Description 01/27/2025 7:00 AM CDT Office Visit [facility] Family & Internal Medicine [facility] [id number] [place] [address] [place] [address] [place] [address] 10/22/2025 9:15 AM FULL STACK DEVELOPER Office Visit [facility] [address] Mily Gan MD [address] [address] documented as of this encounter Goals Goal [...] as of this encounter Visit Diagnoses Diagnosis Colostomy status (CMS/HCC [facility]/HCC)- Primary Colostomy status documented in this encounter Care Teams Web Merchant Relationship Specialty Start Date End Date Lorie Chan MD PCP - General INTERNAL MEDICINE 01/15/20 02/09/23 Moraima Toledo RN [address] [place], [place] [address] Operations Specialist (Ambulatory) REGISTERED NURSE 09/23/21 documented as of this encounter
--- OUTSIDE RECORDS SUMMARY | 2024-11-02 08:02 | XMS_ITS | Encounter Summary ---
Author Organization [facility] Address [address] [place] [address]. [place] [address] [place] [address] Care Team Providers Care Behavioral Health Counselor Name Role Phone Jeremy Castanon MD Primary Care Provider [phone] Moraima Toledo RN Unavailable [phone] Reason for Visit * Reason Comments Postop Followup reversal of nikki' s(09/22/2021) Encounter Details Date Type Department Care Team (Late st Contact Info) Description 10/08/2021 3:40 PM PHYSICS PROFESSOR Office Visit [facility] General Surgery [address], [facility] [address] [place] [address] Federico Amador MD [address] [address] Postop Followup (reversal of nikki's(09/22/2021) ) Social History Tobacco Use Types Packs/Day [...] Frequency of Binge Drinking Not on file 03/0 07/2021 PHQ-2 Answer Date Recorded PHQ-2 Score - If the patient scores above 3, please move on to questions 3-9 0 01/12/2021 Sex and Gender Information Value Date Recorded Sex Assigned at Not on file Legal Sex Male 9:58 PM PHYSICS PROFESSOR Gender Identity Not on file Sexual Orientation Not on file COVID-19 Exposure Response Date Recorded In the last month, have you been in contact with someone who was confirmed or suspected to have Coronavirus / COVID-19? No / Unsure 10/08/2021 3:43 PM PHYSICS PROFESSOR documented as of this encounter Last Filed Vital Signs Vital Sign Reading Time Taken Comments Blood Pressure 120/60 10/08/2021 3:46 PM PHYSICS PROFESSOR Pulse 74 10/08/2021 3:46 PM PHYSICS PROFESSOR Temperature 36.2 ??C (97.2 ??F) 10/08/2021 3:46 PM CS T Respiratory Rate 16 10/08/2021 3:46 PM PHYSICS PROFESSOR Oxygen Saturation 97% 10/08/2021 3:46 PM PHYSICS PROFESSOR Inhaled Oxygen Concentration - - Weight 71.2 kg (157 lb) 10/08/2021 3:46 PM PHYSICS PROFESSOR Height 170.2 cm (5' 7 ) 10/08/2021 3:46 PM PHYSICS PROFESSOR Body Mass Index 24.59 10/08/2021 3:46 PM PHYSICS PROFESSOR documented in this encounter Functional Status * RETIRED Are you deaf or do you have serious difficulty hearing Answer Date of Assessment Author Status No 10/02/2021 12:38 PM PHYSICS PROFESSOR Acti ve * RETIRED Are you blind or do you have serious difficulty seeing, even when wearing glasses? Answer Date of Assessment Author Status No 10/02/2021 12:38 PM PHYSICS PROFESSOR Acti ve * Do you have serious difficulty walking or climbing stairs? Answer Date of Assessment Author Status No 10/02/2021 12:38 PM PHYSICS PROFESSOR Annette Jorge R N Active * Do you have difficulty dressing or bathing? Answer Date of Assessment Author Status No 10/02/2021 12:38 PM PHYSICS PROFESSOR Annette Jorge R N Active * Because of a physical, mental, or emotional condition, do you have difficulty doing errands alone such as visiting a doctor's office or shopping? Answer Date of Assessment Author Status No 10/02/2021 12:38 PM PHYSICS PROFESSOR Annette Jorge R N Active documented as of this encounter Mental Status * Because of a physical, mental, or emotional condition, do you have serious difficulty concentrating, remembering, or making decisions? Answer Entry Date Author Status No 10/02/2021 12:38 PM PHYSICS PROFESSOR Annette Jorge R N Active documented in this encounter Progress Notes * Federico Amador MD - 10/08/2021 3:40 PM CST Reason for Visit: Postop Followup (reversal of jordan's(09/22/2021)) History of Present Illness: Natan Patel is a 66-year-old male status post laparoscopic reversal of Jordan's colostomy September 22, 2021. He is doing well. He states that he is eating well, passing gas and having multiple small bowel movements in a day. He denies any abdominal pain, nausea, vomiting, fevers or chills or any diarrhea. ROS: Review of Systems Constitutional: Negative. HENT: Negative. Eyes: Negative. Respiratory: Negative. Cardiovascular: Negative. Gastrointestinal: Negative. Genitourinary: Negative. Musculoskeletal: Negative. Skin: Negative. Neurological: Negative. Endo/Heme/Allergies: Negative. Psychiatric/Behavioral: Negative. Medications: Current Outpatient Medications: ??? AMLODIPINE 5 MG tablet, Take 1 tablet (5 mg total) by mouth daily., Disp: 30 tablet, Rfl: 0 ??? Ascorbic [...] 1 ??? Cholecalciferol (VITAMIN D) 50 MCG (1999) Cap, Take 50 mcg by mouth daily. Indications: Vitamin D Deficiency , Disp: , Rfl: ? ? CPAP SUPPLIES, 1 Units by Does not apply route nightly at bedtime. Mask, tubing & filters (Patient taking differently: 1 Units by Does not apply route nightly at bedtime. Mask, tubing & filters Indications: RADNY), Disp: 1 Device, Rfl: 3 ??? METOPROLOL [...] biopsy performed by Federico Amador MD at [facility] OR ??? COLOSTOMY reversable ??? HERNIA REPAIR Right [facility] ??? HERNIA REPAIR Left [facility] ??? NECK/CHEST PROCEDURE UNLISTED Right [facility], re-built right side of neck. ??? SMALL INTESTINE SURGERY bowel rupture ??? TOTAL KNEE ARTHROPLASTY Bilateral ZANA Partial KR, done @ [facility] Social History Tobacco Use ??? Smoking [...] rebound. Hernia: No hernia is present. Comments: 2 laparoscopic incisions are clean dry and intact without any evidence of infection. Salvatore removed without incident and Steri-Strips applied. Easton-Srinivasan drain with a very small amount of serous output removed without incident and sterile gauze applied. 1 black sponge removed at priorostomy site, wound swabbed with Betadine, 1 small black sponge cut to size placed, peripheral salvatore removed without incident and Steri-Strips applied. Placed to 125 mmHg suction without any air leak and with good seal. Musculoskeletal: General: No tenderness or deformity. Normal range of motion. Cervical back: Normal range of motion and neck supple. Skin: General: Skin is warm and dry. Findings: No rash. Neurological: General: No focal deficit present. Mental Status: He is alert and oriented to person, place, and time. Psychiatric: Mood and Affect: Mood normal. Behavior: Behavior normal. Vitals: 10/08/21 1546 Patient Position: Sitting BP Location: Left arm Cuff size: Adult Regular BP: 120/60 Pulse: 74 Body mass index is 24.59 kg/m??. Diagnoses/Impression: 1. Postoperative examination Recommendations and Plan: Natan Patel is a 66-year-old male status post laparoscopic reversal of end colostomy. Doing relatively well. Anticipate VAC usage for another week. Follow- up with me in 1 week, sooner should theneed arise. Activity restrictions reiterated. Federico Amador MD Referring Provider: Dustin PCP: JEREMY CASTANON MD ICS PROFESSOR documented in this encounter Plan of Treatment Upcoming Encounters Date Type Department Care Team (Late st Contact Info) Description 01/27/2025 7:00 AM CDT Office Visit [facility] Family & Internal Medicine [address] [address] Ilir Nelson PA [address] [place] [address] 10/22/2025 9:15 AM PHYSICS PROFESSOR Office Visit [facility] [address] Mily Gan MD [address] [address] documented as of this encounter [...] surgery documented in this encounter Care Teams Behavioral Health Counselor Relationship Specialty Start Date End Date Jeremy Castanon MD PCP - General INTERNAL MEDICINE 01/15/20 02/09/23 Moraima Toledo, RN [facility] [place] [address] Merchandise Collector (Ambulatory) REGISTERED NURSE 09/23/21 documented as of this encounter
--- OUTSIDE RECORDS SUMMARY | 2024-11-02 08:02 | XMS_ITS | Encounter Summary ---
Author Organization [facility] Address [address] [place] [address]. [place] [address] [place] [address] Care Team Providers Care Senior Art Director Name Role Phone Lorie Castanon MD Primary Care Provider [phone] Moraima Toledo RN Unavailable [phone] Reason for Visit * Reason Comments Postop Followup lap reversal of meek man's(09/22/2021) Encounter Details Date Type Department Care Team (Late st Contact Info) Description 10/15/2021 2:20 PM THERMOCOUPLE TESTER Office Visit [facility] Medical Group General Surgery [address], [facility] [address] [place] [address] Federico Amador MD [address] [address] Postop Followup (lap reversal of jordan's(09/22/2021) [...] on file Legal Sex Male 9:58 PM THERMOCOUPLE TESTER Gender Identity Not on file Sexual Orientation Not on file COVID-19 Exposure Response Date Recorded In the last month, have you been in contact with someone who was confirmed or suspected to have Coronavirus / COVID-19? No / Unsure 10/15/2021 2:25 PM THERMOCOUPLE TESTER documented as of this encounter Last Filed Vital Signs Vital Sign Reading Time Taken Comments Blood Pressure 110/62 10/15/2021 2:53 PM THERMOCOUPLE TESTER Pulse 94 10/15/2021 2:53 PM THERMOCOUPLE TESTER Temperature - - Respiratory Rate 16 10/15/2021 2:53 PM THERMOCOUPLE TESTER Oxygen Saturation 97% 10/15/2021 2:53 PM THERMOCOUPLE TESTER Inhaled Oxygen Concentration - - Weight 73 kg (161 lb) 10/15/2021 2:53 PM THERMOCOUPLE TESTER Height 170.2 cm (5' 7 ) 10/15/2021 2:53 PM THERMOCOUPLE TESTER Body Mass Index 25.22 10/15/2021 2:53 PM THERMOCOUPLE TESTER documented in this encounter Functional Status * RETIRED Are you deaf or do you have serious difficulty hearing Answer Date of Assessment Author Status No 10/02/2021 12:38 PM THERMOCOUPLE TESTER Acti ve * RETIRED Are you blind or do you have serious difficulty seeing, even when wearing glasses? Answer Date of Assessment Author Status No 10/02/2021 12:38 PM THERMOCOUPLE TESTER Acti ve * Do you have serious difficulty walking or climbing stairs? Answer Date of Assessment Author Status No 10/02/2021 12:38 PM THERMOCOUPLE TESTER Annette Jorge R N Active * Do you have difficulty dressing or bathing? Answer Date of Assessment Author Status No 10/02/2021 12:38 PM THERMOCOUPLE TESTER Annette Jorge R N Active * Because of a physical, mental, or emotional condition, do you have difficulty doing errands alone such as visiting a doctor's office or shopping? Answer Date of Assessment Author Status No 10/02/2021 12:38 PM THERMOCOUPLE TESTER Annette Jorge R N Active documented as of this encounter Mental Status * Because of a physical, mental, or emotional condition, do you have serious difficulty concentrating, remembering, or making decisions? Answer Entry Date Author Status No 10/02/2021 12:38 PM THERMOCOUPLE TESTER Annette Jorge R N Active documented in this encounter Progress Notes * Federico Amador MD - 10/15/2021 2:20 PM CST Reason for Visit: Postop Followup (lap reversal of jordan's(09/22/2021)) History of Present Illness: Natan Patel is a 66-year-old male status post laparoscopic reversal of Jordan's on September 22, 2021. He is doing well and having normal bowel movements and eating well and denies any abdominalpain, nausea, vomiting, fevers or chills. The left-sided colostomy site is almost completely healed. No pertinent issues or concerns. ROS: Review of [...] biopsy performed by Federico Amador MD at [facility] OR ??? COLOSTOMY reversable ??? HERNIA REPAIR Right [facility] ??? HERNIA REPAIR Left [facility] ??? NECK/CHEST PROCEDURE UNLISTED Right [facility], re-built right side of neck. ??? SMALL INTESTINE SURGERY bowel rupture ??? TOTAL KNEE ARTHROPLASTY Bilateral ZANA Partial KR, done @ [facility] Social History Tobacco Use ??? Smoking [...] No hernia is present. Comments: Unremarkable abdominal exam. VAC was taken down and the left-sided colostomy site is almost completely healed with a 1 cm defect less than 0.5 cm deep with clean and healthy granulation tissue. Prepped with Betadine, 1 mL of 1% lidocaine with epinephrine infiltrated in the skin area and one simple suture placed using 3-0 nylon. Musculoskeletal: General: No tenderness or deformity. Normal range of motion. Cervical back: Normal range of motion and neck supple. Skin: General: Skin is warm and dry. Findings: No rash. Neurological: General: No focal deficit present. Mental Status: He is alert and oriented to person, place, and time. Psychiatric: Mood and Affect: Mood normal. Behavior: Behavior normal. Vitals: 10/15/21 1453 Patient Position: Sitting BP Location: Left arm Cuff size: Adult Regular BP: 110/62 Pulse: 94 Body mass index is 25.22 kg/m??. Diagnoses/Impression: 1. Postoperative examination Recommendations and Plan: Natan Patel is a 66-year-old male status post laparoscopic reversal Jordan's. Doing well. Follow-up in 2 weeks for suture removal. Federico Amador MD Referring Provider: Dustin PCP: LORIE CASTANON MD MOCOUPLE TESTER documented in this encounter Plan of Treatment Upcoming Encounters Date Type Department Care Team (Late st Contact Info) Description 01/27/2025 7:00 AM CDT Office Visit [facility] Medical Group Family & Internal Medicine - [place] [address] [place] [address] [place] [address] [place] [address] 10/22/2025 9:15 AM THERMOCOUPLE TESTER Office Visit [facility] [address] Mily Gan MD [address] [address] documented as of this encounter [...] surgery documented in this encounter Care Teams Senior Art Director Relationship Specialty Start Date End Date Lorie Castanon MD PCP - General INTERNAL MEDICINE 01/15/20 02/09/23 Moraima Toledo, RN [address] [place] [address] [place] [address] School Psychology Specialist (Ambulatory) REGISTERED NURSE 09/23/21 documented as of this encounter
--- OUTSIDE RECORDS SUMMARY | 2024-11-02 08:02 | XMS_ITS | Encounter Summary ---
Author Organization [facility] Address [address] [place] [address]. [place], [place] [address] [place] [address] Care Team Providers Care Television Maintenance Worker Name Role Phone Lorie Chan MD Primary Care Provider [phone] Moraima Toledo RN Unavailable [phone] Reason for Visit * Auth/Cert Specialty Diagnoses / Procedures Referred By Shelby t Referred To Contact Home Health Services / [facility] HOME HEALTH [facility] Home Care [facility] [address] [facility] [address] [place] [address] Phone: tel: fax: Referral ID Status Reason Start Date Expiration Date Visits Re quested Visits Authorized [id number] 1 1 Encounter Details Date Type Department Care Team (Late st Contact Info) Description 10/11/2021 Home Care Visit [facility] Home Care [facility] [address] [facility] [address] [place] [address] Brunilda Browne, RN CASE COMMUNICATION Social History Tobacco Use Types Packs/Day Years [...] on file Legal Sex Male 9:58 PM BEREAVEMENT PROGRAM COORDINATOR Gender Identity Not on file Sexual Orientation Not on file COVID-19 Exposure Response Date Recorded In the last month, have you been in contact with someone who was confirmed or suspected to have Coronavirus / COVID-19? No / Unsure 10/08/2021 3:43 PM BEREAVEMENT PROGRAM COORDINATOR documented as of this encounter Functional Status * RETIRED Are you deaf or do you have serious difficulty hearing Answer Date of Assessment Author Status No 10/02/2021 12:38 PM BEREAVEMENT PROGRAM COORDINATOR Acti ve * RETIRED Are you blind or do you have serious difficulty seeing, even when wearing glasses? Answer Date of Assessment Author Status No 10/02/2021 12:38 PM BEREAVEMENT PROGRAM COORDINATOR Acti ve * Do you have serious difficulty walking or climbing stairs? Answer Date of Assessment Author Status No 10/02/2021 12:38 PM BEREAVEMENT PROGRAM COORDINATOR Annette Jorge R N Active * Do you have difficulty dressing or bathing? Answer Date of Assessment Author Status No 10/02/2021 12:38 PM BEREAVEMENT PROGRAM COORDINATOR Annette Jorge R N Active * Because of a physical, mental, or emotional condition, do you have difficulty doing errands alone such as visiting a doctor's office or shopping? Answer Date of Assessment Author Status No 10/02/2021 12:38 PM BEREAVEMENT PROGRAM COORDINATOR Annette Jorge R N Active documented as of this encounter Mental Status * Because of a physical, mental, or emotional condition, do you have serious difficulty concentrating, remembering, or making decisions? Answer Entry Date Author Status No 10/02/2021 12:38 PM BEREAVEMENT PROGRAM COORDINATOR Annette Jorge R N Active documented in this encounter Plan of Treatment Upcoming Encounters Date Type Department Care Team (Late st Contact Info) Description 01/27/2025 7:00 AM CDT Office Visit [facility] Medical Group Family & Internal Medicine [address] [address] [place] [address] [place] [address] 10/22/2025 9:15 AM BEREAVEMENT PROGRAM COORDINATOR Office Visit [facility] [address] [place] [address] Mily Gan MD [facility] [address] [place], [place] [id number] documented as of this encounter Goals Goal [...] on filedocumented in this encounter Care Teams Television Maintenance Worker Relationship Specialty Start Date End Date Lorie Chan MD PCP - General INTERNAL MEDICINE 01/15/20 02/09/23 Moraima Toledo RN [address] [place] [address] [place] (Ambulatory) REGISTERED NURSE 09/23/21 documented as of this encounter
--- OUTSIDE RECORDS SUMMARY | 2024-11-02 08:02 | XMS_ITS | Encounter Summary ---
Author Organization [facility] Address [address] [place] [address]. [place], [place] [address] [place] [address] Care Team Providers Care Potato Grader Name Role Phone Lorie Chan MD Primary Care Provider [phone] Moraima Toledo RN Unavailable [phone] Encounter Details Date Type Department Care Team (Latest Contact Info) Description 10/15/2021 Travel Social History Tobacco Use Types Packs/Day [...] on file Legal Sex Male 9:58 PM COMMUNITY LIVING SPECIALIST Gender Identity Not on file Sexual Orientation Not on file COVID-19 Exposure Response Date Recorded In the last month, have you been in contact with someone who was confirmed or suspected to have Coronavirus / COVID-19? No / Unsure 10/15/2021 2:25 PM COMMUNITY LIVING SPECIALIST documented as of this encounter Functional Status * RETIRED Are you deaf or do you have serious difficulty hearing Answer Date of Assessment Author Status No 10/02/2021 12:38 PM COMMUNITY LIVING SPECIALIST Acti ve * RETIRED Are you blind or do you have serious difficulty seeing, even when wearing glasses? Answer Date of Assessment Author Status No 10/02/2021 12:38 PM COMMUNITY LIVING SPECIALIST Acti ve * Do you have serious difficulty walking or climbing stairs? Answer Date of Assessment Author Status No 10/02/2021 12:38 PM COMMUNITY LIVING SPECIALIST Annette Jorge R N Active * Do you have difficulty dressing or bathing? Answer Date of Assessment Author Status No 10/02/2021 12:38 PM COMMUNITY LIVING SPECIALIST Annette Jorge R N Active * Because of a physical, mental, or emotional condition, do you have difficulty doing errands alone such as visiting a doctor's office or shopping? Answer Date of Assessment Author Status No 10/02/2021 12:38 PM COMMUNITY LIVING SPECIALIST Annette Jorge R N Active documented as of this encounter Mental Status * Because of a physical, mental, or emotional condition, do you have serious difficulty concentrating, remembering, or making decisions? Answer Entry Date Author Status No 10/02/2021 12:38 PM COMMUNITY LIVING SPECIALIST Annette Jorge R N Active documented in this encounter Plan of Treatment Upcoming Encounters Date Type Department Care Team (Late st Contact Info) Description 01/27/2025 7:00 AM CDT Office Visit [facility] Medical Group Family & Internal Medicine [facility] [address] [place] [address] [place] [address] [place], [place] [phone] 10/22/2025 9:15 AM COMMUNITY LIVING SPECIALIST Office Visit [facility] [address] Mily Gan MD [address] [address] documented as of this encounter Goals Goal [...] on filedocumented in this encounter Care Teams Potato Grader Relationship Specialty Start Date End Date Lorie Chan MD PCP - General INTERNAL MEDICINE 01/15/20 02/09/23 Moraima Toledo, GINA [address] [place] [address] Intensive Care Nurse (Ambulatory) REGISTERED NURSE 09/23/21 documented as of this encounter
--- OUTSIDE RECORDS SUMMARY | 2024-11-02 08:03 | XMS_ITS | Encounter Summary ---
Author Organization [facility] Address [address] [place] [address]. [place] [address] [place] [address] Care Team Providers Care Urban Anthropologist Name Role Phone Lorie Chan MD Primary Care Provider [phone] Moraima Toledo RN Unavailable [phone] Reason for Visit * Reason Onset Date Comments Appointment Request 10/04/2021 Encounter Details Date Type Department Care Team (Late st Contact Info) Description 10/04/2021 Telephone [facility] Medical Group General Surgery - [place] [address] [facility], [address] [place] [address] Federico Mayer MD [address] [facility] [address] [place] [address] Appointment Request Social History Tobacco Use Types Packs/Day [...] on file Legal Sex Male 9:58 PM PRACTICE PHYSICIAN Gender Identity Not on file Sexual Orientation Not on file COVID-19 Exposure Response Date Recorded In the last month, have you been in contact with someone who was confirmed or suspected to have Coronavirus / COVID-19? No / Unsure 10/01/2021 7:57 AM PRACTICE PHYSICIAN documented as of this encounter Functional Status * RETIRED Are you deaf or do you have serious difficulty hearing Answer Date of Assessment Author Status No 10/02/2021 12:38 PM PRACTICE PHYSICIAN Acti ve * RETIRED Are you blind or do you have serious difficulty seeing, even when wearing glasses? Answer Date of Assessment Author Status No 10/02/2021 12:38 PM PRACTICE PHYSICIAN Acti ve * Do you have serious difficulty walking or climbing stairs? Answer Date of Assessment Author Status No 10/02/2021 12:38 PM PRACTICE PHYSICIAN Annette Jorge, R N Active * Do you have difficulty dressing or bathing? Answer Date of Assessment Author Status No 10/02/2021 12:38 PM PRACTICE PHYSICIAN Annette Jorge, R N Active * Because of a physical, mental, or emotional condition, do you have difficulty doing errands alone such as visiting a doctor's office or shopping? Answer Date of Assessment Author Status No 10/02/2021 12:38 PM PRACTICE PHYSICIAN Annette Jorge, R N Active documented as of this encounter Mental Status * Because of a physical, mental, or emotional condition, do you have serious difficulty concentrating, remembering, or making decisions? Answer Entry Date Author Status No 10/02/2021 12:38 PM PRACTICE PHYSICIAN Annette Jorge, R N Active documented in this encounter Progress Notes * Tyler Caballero MA - 10/04/2021 9:51 AM CST Patient called and was discharged on Monday. 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 When would you like patient to be seen for a FU appointment? TICE PHYSICIAN documented in this encounter Plan of Treatment Upcoming Encounters Date Type Department Care Team (Late st Contact Info) Description 01/27/2025 7:00 AM CDT Office Visit [facility] Medical Group Family & Internal Medicine [facility] [address] [place] [address] [place] [address] [place], [place] [phone] 10/22/2025 9:15 AM PRACTICE PHYSICIAN [facility] [address] [place] [address] Mily Gan MD [address] [place] [address] documented as of this encounter [...] on filedocumented in this encounter Care Teams Urban Anthropologist Relationship Specialty Start Date End Date Lorie Chan MD PCP - General INTERNAL MEDICINE 01/15/20 02/09/23 Moraima Toledo, RN [address] [place] [address] Hand Filer Balance Wheel (Ambulatory) REGISTERED NURSE 09/23/21 documented as of this encounter
--- OUTSIDE RECORDS SUMMARY | 2024-11-02 08:03 | XMS_ITS | Encounter Summary ---
Author Organization [facility] Address [address] [place] [address]. [place], [place] [address] [place] [address] Care Team Providers Care Certified Court Interpreter Name Role Phone Lorie Chan MD Primary Care Provider [phone] Moraima Toledo RN Unavailable [phone] Reason for Visit * Auth/Cert Specialty Diagnoses / Procedures Referred By Shelby t Referred To Contact Home Health Services / [facility] HOME HEALTH [facility] Home Care [facility] [address] [facility] [address] [place] [address] Phone: tel: fax: Referral ID Status Reason Start Date Expiration Date Visits Re quested Visits Authorized [id number] 1 1 Encounter Details Date Type Department Care Team (Latest Contact Info) Description 10/06/2021 9:00 AM MAPPING SUPERVISOR Home Care Visit [facility] Home Care [facility] [address] [facility] [address] [place] [address] Nery Kelsey RN SN OASIS START OF CARE Social History Tobacco Use Types Packs/Day Years [...] on file Legal Sex Male 9:58 PM MAPPING SUPERVISOR Gender Identity Not on file Sexual Orientation Not on file COVID-19 Exposure Response Date Recorded In the last month, have you been in contact with someone who was confirmed or suspected to have Coronavirus / COVID-19? No / Unsure 10/11/2021 10:27 AM MAPPING SUPERVISOR documented as of this encounter Last Filed Vital Signs Vital Sign Reading Time Taken Comments Blood Pressure 110/64 10/06/2021 9:29 AM MAPPING SUPERVISOR Pulse 69 10/06/2021 9:29 AM MAPPING SUPERVISOR Temperature 36.6 ??C (97.8 ??F) 10/06/2021 9:29 AM CS T Respiratory Rate 16 10/06/2021 9:29 AM MAPPING SUPERVISOR Oxygen Saturation 99% 10/06/2021 9:29 AM MAPPING SUPERVISOR Inhaled Oxygen Concentration - - Weight - - Height - - Body Mass Index - - documented in this encounter Functional Status * RETIRED Are you deaf or do you have serious difficulty hearing Answer Date of Assessment Author Status No 10/02/2021 12:38 PM MAPPING SUPERVISOR Acti ve * RETIRED Are you blind or do you have serious difficulty seeing, even when wearing glasses? Answer Date of Assessment Author Status No 10/02/2021 12:38 PM MAPPING SUPERVISOR Acti ve * Do you have serious difficulty walking or climbing stairs? Answer Date of Assessment Author Status No 10/02/2021 12:38 PM MAPPING SUPERVISOR Annette Jorge R N Active * Do you have difficulty dressing or bathing? Answer Date of Assessment Author Status No 10/02/2021 12:38 PM MAPPING SUPERVISOR Annette Jorge R N Active * Because of a physical, mental, or emotional condition, do you have difficulty doing errands alone such as visiting a doctor's office or shopping? Answer Date of Assessment Author Status No 10/02/2021 12:38 PM MAPPING SUPERVISOR Annette Jorge R N Active documented as of this encounter Mental Status * Because of a physical, mental, or emotional condition, do you have serious difficulty concentrating, remembering, or making decisions? Answer Entry Date Author Status No 10/02/2021 12:38 PM MAPPING SUPERVISOR Annette Jorge R N Active documented in this encounter Plan of Treatment Upcoming Encounters Date Type Department Care Team (Late st Contact Info) Description 01/27/2025 7:00 AM CDT Office Visit [facility] Medical Group Family & Internal Medicine - [place] [address] [place] [address] [place] [address] [place], [place] [id number] 10/22/2025 9:15 AM MAPPING SUPERVISOR Office Visit [facility] [address] Mily Gan MD [address] [place], [place] [phone] documented as of this encounter Goals Goal [...] Visit Details Visit Type -SN - OASIS Start of Care Discipline -Detention Problems Problem Description Start Date [...] as evidenced by 12/04/21. Collaboration of Care Met This Shift No Patient safety met through collaboration for [...] or above 90% through 12/04/21 Pulse Oximetry Met This Shift No Interventions Intervention Associated Problem/Goal Status Variance [...] signs/symptoms of complications Completed Home medication management discussed, instructed with patient. Patient verbalize ability to perform safe home medication administration. [...] Home Safety Description: Instruct Patient and on strategies/modification s to home environment. Up as tolerated. Problem:Collaboration [...] Completed documented in this encounter Care Teams Certified Court Interpreter Relationship Specialty Start Date End Date Lorie Chan MD PCP - General INTERNAL MEDICINE 01/15/20 02/09/23 Mroaima Toledo, GINA [address] [place] [address] Oil Dispatcher (Ambulatory) REGISTERED NURSE 09/23/21 documented as of this encounter
--- OUTSIDE RECORDS SUMMARY | 2024-11-02 08:03 | XMS_ITS | Encounter Summary ---
Author Organization [facility] Address [address] [place] [address]. [place] [address] [place] [address] Care Team Providers Care Merchandising Assistant Name Role Phone Lorie Chan MD Primary Care Provider [phone] Moraima Toledo RN Unavailable [phone] Encounter Details Date Type Department Care Team (Late st Contact Info) Description 10/06/2021 Plan of Care Documentation [facility] Home Care [facility] [address] [facility] [address] [place] [address] Social History Tobacco Use Types Packs/Day Years [...] on file Legal Sex Male 9:58 PM MAP MOUNTER Gender Identity Not on file Sexual Orientation Not on file COVID-19 Exposure Response Date Recorded In the last month, have you been in contact with someone who was confirmed or suspected to have Coronavirus / COVID-19? No / Unsure 10/01/2021 7:57 AM MAP MOUNTER documented as of this encounter Functional Status * RETIRED Are you deaf or do you have serious difficulty hearing Answer Date of Assessment Author Status No 10/02/2021 12:38 PM MAP MOUNTER Acti ve * RETIRED Are you blind or do you have serious difficulty seeing, even when wearing glasses? Answer Date of Assessment Author Status No 10/02/2021 12:38 PM MAP MOUNTER Acti ve * Do you have serious difficulty walking or climbing stairs? Answer Date of Assessment Author Status No 10/02/2021 12:38 PM MAP MOUNTER Annette Jorge R N Active * Do you have difficulty dressing or bathing? Answer Date of Assessment Author Status No 10/02/2021 12:38 PM MAP MOUNTER Annette Jorge, R N Active * Because of a physical, mental, or emotional condition, do you have difficulty doing errands alone such as visiting a doctor's office or shopping? Answer Date of Assessment Author Status No 10/02/2021 12:38 PM MAP MOUNTER Annette Jorge, R N Active documented as of this encounter Mental Status * Because of a physical, mental, or emotional condition, do you have serious difficulty concentrating, remembering, or making decisions? Answer Entry Date Author Status No 10/02/2021 12:38 PM MAP MOUNTER Annette Jorge, R N Active documented in this encounter Plan of Treatment Upcoming Encounters Date Type Department Care Team (Late st Contact Info) Description 01/27/2025 7:00 AM CDT Office Visit [facility] Medical Group Family & Internal Medicine [facility] [address] [place] [address] [place] [id number] [place] [address] 10/22/2025 9:15 AM MAP MOUNTER Office Visit [facility] [address] Mily Gan MD [facility] [address] [place] [address] documented as of this encounter Goals Goal [...] on filedocumented in this encounter Care Teams Merchandising Assistant Relationship Specialty Start Date End Date Lorie Chan MD PCP - General INTERNAL MEDICINE 01/15/20 02/09/23 Moraima Toledo RN [address] [place], [place] [id number] Database Manager (Ambulatory) REGISTERED NURSE 09/23/21 documented as of this encounter
--- OUTSIDE RECORDS SUMMARY | 2024-11-02 08:03 | XMS_ITS | Encounter Summary ---
Author Organization [facility] Address [address] [place] [address]. [place] [address] [place] [address] Care Team Providers Care Certified Technician Specialist Name Role Phone Lorie Chan MD Primary Care Provider [phone] Moraima Toledo RN Unavailable [phone] Reason for Visit * Reason Onset Date Comments Error 10/06/2021 Encounter Details Date Type Department Care Team (Late st Contact Info) Description 10/06/2021 Telephone [facility] Medical Group Family & Internal Medicine [facility] [address] [place] [address] Federico Mayer MD [address] [facility] [address] [place] [address] Error Social History Tobacco Use Types Packs/Day [...] on file Legal Sex Male 9:58 PM DEAN OF EDUCATION Gender Identity Not on file Sexual Orientation Not on file COVID-19 Exposure Response Date Recorded In the last month, have you been in contact with someone who was confirmed or suspected to have Coronavirus / COVID-19? No / Unsure 10/11/2021 10:27 AM DEAN OF EDUCATION documented as of this encounter Functional Status * RETIRED Are you deaf or do you have serious difficulty hearing Answer Date of Assessment Author Status No 10/02/2021 12:38 PM DEAN OF EDUCATION Acti ve * RETIRED Are you blind or do you have serious difficulty seeing, even when wearing glasses? Answer Date of Assessment Author Status No 10/02/2021 12:38 PM DEAN OF EDUCATION Acti ve * Do you have serious difficulty walking or climbing stairs? Answer Date of Assessment Author Status No 10/02/2021 12:38 PM DEAN OF EDUCATION Annette Jorge, R N Active * Do you have difficulty dressing or bathing? Answer Date of Assessment Author Status No 10/02/2021 12:38 PM DEAN OF EDUCATION Annette Jorge, R N Active * Because of a physical, mental, or emotional condition, do you have difficulty doing errands alone such as visiting a doctor's office or shopping? Answer Date of Assessment Author Status No 10/02/2021 12:38 PM DEAN OF EDUCATION Annette Jorge, R N Active documented as of this encounter Mental Status * Because of a physical, mental, or emotional condition, do you have serious difficulty concentrating, remembering, or making decisions? Answer Entry Date Author Status No 10/02/2021 12:38 PM DEAN OF EDUCATION Annette Jorge, R N Active documented in this encounter Progress Notes * Summer Gilliland - 10/06/2021 9:37 AM CST Error OF EDUCATION documented in this encounter Plan of Treatment Upcoming Encounters Date Type Department Care Team (Late st Contact Info) Description 01/27/2025 7:00 AM CDT Office Visit [facility] Medical Group Family & Internal Medicine [address] [address] [place] [address] [place] [address] 10/22/2025 9:15 AM DEAN OF EDUCATION Office Visit [facility] [address] [place] [address] Mily Gan MD Three [facility] [address] [place], [place] [id number] documented as of this encounter Goals Goal [...] on filedocumented in this encounter Care Teams Certified Technician Specialist Relationship Specialty Start Date End Date Lorie Chan MD PCP - General INTERNAL MEDICINE 01/15/20 02/09/23 Moraima Toledo RN [address] [place] [address] Berry Picker (Ambulatory) REGISTERED NURSE 09/23/21 documented as of this encounter
--- OUTSIDE RECORDS SUMMARY | 2024-11-02 08:03 | XMS_ITS | Encounter Summary ---
Author Organization [facility] Address [address] [place] [address]. [place] [address] [place] [address] Care Team Providers Care Catalyst Operator Name Role Phone Lorie Chan MD Primary Care Provider [phone] Moraima Toledo RN Unavailable [phone] Reason for Visit * Reason Onset Date Comments Other 10/06/2021 Encounter Details Date Type Department Care Team (Late st Contact Info) Description 10/06/2021 Telephone [facility] Medical Group General Surgery - [place] [address] [facility] [address] [place] [address] Federico Mayer MD [address] [facility] [address] [place] [address] Other Social History Tobacco Use Types Packs/Day [...] on file Legal Sex Male 9:58 PM MAIL ROOM Gender Identity Not on file Sexual Orientation Not on file COVID-19 Exposure Response Date Recorded In the last month, have you been in contact with someone who was confirmed or suspected to have Coronavirus / COVID-19? No / Unsure 10/11/2021 10:27 AM MAIL ROOM documented as of this encounter Functional Status * RETIRED Are you deaf or do you have serious difficulty hearing Answer Date of Assessment Author Status No 10/02/2021 12:38 PM MAIL ROOM Acti ve * RETIRED Are you blind or do you have serious difficulty seeing, even when wearing glasses? Answer Date of Assessment Author Status No 10/02/2021 12:38 PM MAIL ROOM Acti ve * Do you have serious difficulty walking or climbing stairs? Answer Date of Assessment Author Status No 10/02/2021 12:38 PM MAIL ROOM Annette Jorge, R N Active * Do you have difficulty dressing or bathing? Answer Date of Assessment Author Status No 10/02/2021 12:38 PM MAIL ROOM Annette Jorge, R N Active * Because of a physical, mental, or emotional condition, do you have difficulty doing errands alone such as visiting a doctor's office or shopping? Answer Date of Assessment Author Status No 10/02/2021 12:38 PM MAIL ROOM Annette Jorge, R N Active documented as of this encounter Mental Status * Because of a physical, mental, or emotional condition, do you have serious difficulty concentrating, remembering, or making decisions? Answer Entry Date Author Status No 10/02/2021 12:38 PM MAIL ROOM Annette Jorge, R N Active documented in this encounter Progress Notes * Tyler Caballero MA - 10/06/2021 11:44 AM CST Talked to anita at [facility] to tell her that we will be changing the bandage due to Dr. Mayer will be checking the wound. ROOM * Sarai Thomas - 10/06/2021 10:47 AM CST Anita from [facility] home health called w/questions on patients bandage change Monday? [facility] but they would like to know if you would like for them to change bandages anyway orwait for you to do it since he has senthil? Also, during bandage change today one of the senthil came out but wound was healed well. Thanks ROOM documented in this encounter Plan of Treatment Upcoming Encounters Date Type Department Care Team (Late st Contact Info) Description 01/27/2025 7:00 AM CDT Office Visit [facility] Medical Group Family & Internal Medicine - [place] [address] [place] [address] [place] [address] [place] [address] 10/22/2025 9:15 AM MAIL ROOM Office Visit [facility] [address] Mily Gan MD [address] [address] documented as of this encounter [...] on filedocumented in this encounter Care Teams Catalyst Operator Relationship Specialty Start Date End Date Lorie Chan MD PCP - General INTERNAL MEDICINE 01/15/20 02/09/23 Moraima Toledo, RN [address] [place] [address] Product Info Specialist (Ambulatory) REGISTERED NURSE 09/23/21 documented as of this encounter
--- OUTSIDE RECORDS SUMMARY | 2024-11-02 08:03 | XMS_ITS | Encounter Summary ---
Author Organization [facility] Address [address] [place] [address]. [place] [address] [place] [address] Care Team Providers Care Ship Scraper Name Role Phone Lorie Chan MD Primary Care Provider [phone] Moraima Toledo RN Unavailable [phone] Reason for Visit * Reason Onset Date Comments [facility] 10/04/2021 [facility] 09/22-10/02 Encounter Details Date Type Department Care Team (Late st Contact Info) Description 10/04/2021 Patient Outreach [facility] Medical Group Family & Internal Medicine [address] [address] Moraima Toledo, RN [address] [place] [address] TCM ([facility] 09/22-10/02) Social History Tobacco Use Types Packs/Day Years [...] on file Legal Sex Male 9:58 PM ORACLE IDENTITY MANAGEMENT CONSULTANT Gender Identity Not on file Sexual Orientation Not on file COVID-19 Exposure Response Date Recorded In the last month, have you been in contact with someone who was confirmed or suspected to have Coronavirus / COVID-19? No / Unsure 10/01/2021 7:57 AM ORACLE IDENTITY MANAGEMENT CONSULTANT documented as of this encounter Functional Status * RETIRED Are you deaf or do you have serious difficulty hearing Answer Date of Assessment Author Status No 10/02/2021 12:38 PM ORACLE IDENTITY MANAGEMENT CONSULTANT Acti ve * RETIRED Are you blind or do you have serious difficulty seeing, even when wearing glasses? Answer Date of Assessment Author Status No 10/02/2021 12:38 PM ORACLE IDENTITY MANAGEMENT CONSULTANT Acti ve * Do you have serious difficulty walking or climbing stairs? Answer Date of Assessment Author Status No 10/02/2021 12:38 PM ORACLE IDENTITY MANAGEMENT CONSULTANT Annette Jorge, R N Active * Do you have difficulty dressing or bathing? Answer Date of Assessment Author Status No 10/02/2021 12:38 PM ORACLE IDENTITY MANAGEMENT CONSULTANT Annette Jorge, R N Active * Because of a physical, mental, or emotional condition, do you have difficulty doing errands alone such as visiting a doctor's office or shopping? Answer Date of Assessment Author Status No 10/02/2021 12:38 PM ORACLE IDENTITY MANAGEMENT CONSULTANT Annette Jorge, R N Active documented as of this encounter Mental Status * Because of a physical, mental, or emotional condition, do you have serious difficulty concentrating, remembering, or making decisions? Answer Entry Date Author Status No 10/02/2021 12:38 PM ORACLE IDENTITY MANAGEMENT CONSULTANT Annette Jorge, R N Active documented in this encounter Progress Notes * Moraima Toledo RN - 10/04/2021 7:26 AM CST Follow up call to patient post hospitalization Patient admitted to [facility] on 09/22/21 with discharge diagnosis of S/p colostomy reversal. Discharge date: 10/02/21 Date of Contact: 10/04/21 Patient Status: (Including education, discharge instructions, s/sx to infection, and when to seek medical attn) Contacted patient, introduced self and role of CC. Patient stated he is doing ok. Denies pain, fever, or chills. Stated he has abdominal cramping when he had a little bit of gas. Stated stools arestill loose but getting firmer. Denies hematochezia and stated he is voiding without difficulty. Reports eating solid food but stated he has to eat small amounts at a time. Denies dizziness and stated he is not checking his B/P at home. Educated on D/C instructions. He is aware no lifting greater than 10 lbs and stated no issues caring for JITENDRA drain. Reports he drained the JITENDRA drain last night before bed and it was 1/3 full. Stated he hardly has anything collecting in it currently. Stated he has to set up his CPAP machine again since he's been home from the hospital. Reconciled medications with patient today and scheduled a TCM appointment with Beckie HERNÁNDEZ for 10/11/21 at 10:40 am. Encouraged tocall before that time if needed. Patient verbalizes understanding. A.Fib RVR Converted back to NSR Discussed with Cardiology 30 day event monitor & ECHO recommended. Update Insurance reportedly declined both Metoprolol and Norvasc. Will resend ER for Metoprolol, and advised to f/u w PCP in 1wk. Discharge Disposition: [facility] Patient stated C will be calling him today. Any follow up appointments needed to be scheduled: yes - . Patient stated he left a message for her office to call about an appointment. Future Appointments Date Time Provider Department Center 10/11/2021 10:40 AM Beckie Sandra NP [facility] 01/06/2022 7:40 AM [facility] 01/11/2022 8:40 AM Lroie Chan MD [facility] Referrals needed: no Any follow up labs/imagining needed: no Have lab/imaging orders been placed: N/A Allergies: Allergies Allergen Reactions ??? Morphine Itching Medications: Outpatient medications have been reconciled with hospital discharge list. See below for changes. Current Outpatient Medications Medication Sig Dispense Refill ??? AMLODIPINE 5 MG tablet Take 1 tablet (5 mg total) by mouth daily. 30 tablet 0 ??? Ascorbic Acid (VITAMIN C) 100 MG tablet Take 100 mg by mouth daily. Indications: Vitamin and/orMineral Deficiency ??? aspirin 81 MG chewable tablet Chew 81 mg by mouth nightly at bedtime. Indications: Anticoagulant Therapy ??? atorvastatin 40 MG tablet TAKE 1 TABLET NIGHTLY AT BEDTIME- CHANGE FROM PRAVASTATIN LOW DENSITYLIPOPROTEIN CHOLESTEROL NOT TO GOAL 90 tablet 1 ??? Cholecalciferol (VITAMIN D) 50 MCG (2000 UT) Cap Take 50 mcg by mouth daily. Indications: Vitamin D Deficiency ??? METOPROLOL SUCCINATE ER 50 MG 24 hr tablet Take 1 tablet (50 mg total) by mouth daily. 30 tablet 0 ??? simethicone (GAS-X EXTRA STRENGTH) 125 MG chewable tablet Chew 125 mg by mouth every 6 (six) hours as needed. Indications: Gas Pain ??? vitamin B-12 (CYANOCOBALAMIN) 1000 mcg tablet Take 1,000 mcg by mouth daily. ??? Vitamin E 400 units Tab Take 400 Units by mouth daily. Indications: Nutritional Support ??? zinc gluconate 50 MG Tab Take 1 tablet by mouth daily. Indications: Nutritional Support ? ? CPAP SUPPLIES 1 Units by Does not apply route nightly at bedtime. Mask, tubing & filters (Patient taking differently: 1 Units by Does not apply route nightly at bedtime. Mask, tubing & filters Indications: RANDY) 1 Device 3 No current facility-administered medications for this visit. Discontinued Medications: No Does patient have difficulty affording medication: No Do any medications need refilled: No Does patient have access to care and services (rides, etc)? Yes Patient Goals: Patient will monitor symptoms and report any changes. Patient will establish regular f/u with PCP. Plan of Care: Follow up with Beckie HERNÁNDEZ on 10/11/21 or call before that time if needed. LE IDENTITY MANAGEMENT CONSULTANT * Xi Page RN - 10/04/2021 7:26 AM CST Please advise LE IDENTITY MANAGEMENT CONSULTANT documented in this encounter Plan of Treatment Upcoming Encounters Date Type Department Care Team (Late st Contact Info) Description 01/27/2025 7:00 AM CDT Office Visit [facility] Medical Group Family & Internal Medicine - [place] [address] [place] [address] [place] [address] [place], [place] [phone] 10/22/2025 9:15 AM ORACLE IDENTITY MANAGEMENT CONSULTANT Office Visit [facility] [address] [place] [address] Mily Gan MD Three [facility]. [facility] [address] [place] [address] documented as of this encounter [...] on filedocumented in this encounter Care Teams Ship Scraper Relationship Specialty Start Date End Date Lorie Chan MD PCP - General INTERNAL MEDICINE 01/15/20 02/09/23 Moraima Toledo, RN [address] [place] [address] Solar Thermal Technician (Ambulatory) REGISTERED NURSE 09/23/21 documented as of this encounter
--- OUTSIDE RECORDS SUMMARY | 2024-11-02 08:04 | XMS_ITS | Encounter Summary ---
Author Organization [facility] Address [address] [place] [address]. [place] [address] [place] [address] Care Team Providers Care Milk Route Supervisor Name Role Phone Lorie Chan MD Primary Care Provider [phone] Moraima Toledo RN Unavailable [phone] Reason for Visit * Reason Onset Date Comments Follow Up Call 10/03/2021 Encounter Details Date Type Department Care Team (Late st Contact Info) Description 10/03/2021 Telephone [facility] Med/Surg [address] [place] [address] Mayda Julian, RN Follow Up Call Social History Tobacco Use Types Packs/Day Years [...] file Legal Sex Male 9:58 PM SENIOR BENEFITS SPECIALIST Gender Identity Not on file Sexual Orientation Not on file COVID-19 Exposure Response Date Recorded In the last month, have you been in contact with someone who was confirmed or suspected to have Coronavirus / COVID-19? No / Unsure 10/01/2021 7:57 AM SENIOR BENEFITS SPECIALIST documented as of this encounter Functional Status * RETIRED Are you deaf or do you have serious difficulty hearing Answer Date of Assessment Author Status No 10/02/2021 12:38 PM SENIOR BENEFITS SPECIALIST Acti ve * RETIRED Are you blind or do you have serious difficulty seeing, even when wearing glasses? Answer Date of Assessment Author Status No 10/02/2021 12:38 PM SENIOR BENEFITS SPECIALIST Acti ve * Do you have serious difficulty walking or climbing stairs? Answer Date of Assessment Author Status No 10/02/2021 12:38 PM SENIOR BENEFITS SPECIALIST Annette Jorge R N Active * Do you have difficulty dressing or bathing? Answer Date of Assessment Author Status No 10/02/2021 12:38 PM SENIOR BENEFITS SPECIALIST Annette Jorge R N Active * Because of a physical, mental, or emotional condition, do you have difficulty doing errands alone such as visiting a doctor's office or shopping? Answer Date of Assessment Author Status No 10/02/2021 12:38 PM SENIOR BENEFITS SPECIALIST Annette Jorge R N Active documented as of this encounter Mental Status * Because of a physical, mental, or emotional condition, do you have serious difficulty concentrating, remembering, or making decisions? Answer Entry Date Author Status No 10/02/2021 12:38 PM SENIOR BENEFITS SPECIALIST Annette Jorge R N Active documented in this encounter Plan of Treatment Upcoming Encounters Date Type Department Care Team (Late st Contact Info) Description 01/27/2025 7:00 AM CDT Office Visit [facility] Medical Group Family & Internal Medicine - [place] [address] [place] [address] Ilir Nelson PA [address] [place] [address] 10/22/2025 9:15 AM SENIOR BENEFITS SPECIALIST Office Visit [facility] [address] Mily Gan MD Three [place] [address] [place] [address] documented as of this encounter Goals Goal Patient Goal Type Associated Problems Recent Progress Patient-Stated? Author Establish Plan for Symptom Monitoring General Jesi Ye RN Monitor - demonstrates appropriate technique of care of indwelling urinary catheter and new ostomy General No Jesi Ccohran RN Patient will return to prior living situation and remain independent in ADLs upon discharge from hospital General No Aliya Stokes RN documented as of this encounter Visit Diagnoses Not on filedocumented in this encounter Care Teams Milk Route Supervisor Relationship Specialty Start Date End Date Lorie Chan MD PCP - General INTERNAL MEDICINE 01/15/20 02/09/23 Moraima Toledo, GINA [address] [place] [address] Alodize Machine Helper (Ambulatory) REGISTERED NURSE 09/23/21 documented as of this encounter
--- OUTSIDE RECORDS SUMMARY | 2024-11-02 08:05 | XMS_ITS | Encounter Summary ---
Author Organization [facility] Address [address] [place] [address]. [place], [place] [id number] [place] [id number] Care Team Providers Care Social Worker Psychiatric Name Role Phone Lorie Chan MD Primary Care Provider [phone] Encounter Details Date Type Department Care Team (Latest Contact Info) Description 09/22/2021 Travel Social History Tobacco Use Types Packs/Day [...] on file Legal Sex Male 9:58 PM [employer] Gender Identity Not on file Sexual Orientation Not on file COVID-19 Exposure Response Date Recorded In the last month, have you been in contact with someone who was confirmed or suspected to have Coronavirus / COVID-19? No / Unsure 09/22/2021 7:51 PM [employer] documented as of this encounter Functional Status * Question Answer Date of Assessment Author Status Do you have serious difficulty walking or climbing stairs? No 09/22/2021 7:58 PM Nancy Guerrero RN Acti ve * Question Answer Date of Assessment Author Status Do you have difficulty dressing or bathing? No 09/22/2021 7:58 PM Nancy Guerrero RN Active Because of a physical, mental, or emotional condition, do you have difficulty doing errands alone such as visiting a doctor's office or shopping? No 09/22/2021 7:58 PM Krishna Guerrero RN Active * RETIRED Are you deaf or do you have serious difficulty hearing Answer Date of Assessment Author Status No 03/18/2021 8:35 PM CDT Activ e * RETIRED Are you blind or do you have serious difficulty seeing, even when wearing glasses? Answer Date of Assessment Author Status No 03/18/2021 8:35 PM CDT Activ e * Do you have serious difficulty walking or climbing stairs? Answer Date of Assessment Author Status No 03/18/2021 8:35 PM Polly Clemons RN Active * Do you have difficulty dressing or bathing? Answer Date of Assessment Author Status No 03/18/2021 8:35 PM AYANNAT Polly Oliveira RN Active * Because of a physical, mental, or emotional condition, do you have difficulty doing errands alone such as visiting a doctor's office or shopping? Answer Date of Assessment Author Status No 03/18/2021 8:35 PM Polly Clemons RN Active documented as of this encounter Mental Status * Question Answer Entry Date Author Status Because of a physical, mental, or emotional condition, do you have serious difficulty concentrating, remembering, or making decisions? No 09/22/2021 7:58 PM Nancy Guerrero RN Active * Because of a physical, mental, or emotional condition, do you have serious difficulty concentrating, remembering, or making decisions? Answer Entry Date Author Status No 03/18/2021 8:35 PM Polly Clemons RN Active documented in this encounter Plan of Treatment Upcoming Encounters Date Type Department Care Team (Late st Contact Info) Description 01/27/2025 7:00 AM CDT Office Visit [facility] [place] [address] [place] [address] [place] [address] [place], [place] [id number] 10/22/2025 9:15 AM [employer] Office Visit [facility] [address] [place] [phone] iMly Gan MD [id number] [place] [address] documented as of this encounter Goals Goal Patient Goal Type Associated Problems Recent Progress Patient-Stated? Author Establish Plan for Symptom Monitoring General Jesi Lagunas i RN Monitor - demonstrates appropriate technique of care of indwelling urinary catheter and new ostomy General No Jesi Cochran RN documented as of this encounter Visit Diagnoses Not on filedocumented in this encounter Care Teams Social Worker Psychiatric Relationship Specialty Start Date End Date Lorie Chan MD PCP - General INTERNAL MEDICINE 01/15/20 02/09/23 documented as of this encounter
--- OUTSIDE RECORDS SUMMARY | 2024-11-02 08:05 | XMS_ITS | Encounter Summary ---
Author Organization [facility] Address [address] [place] [address]. [place], [place] [id number] [place] [id number] Care Team Providers Care Compliance Spec Name Role Phone Lorie Castanon MD Primary Care Provider [phone] Moraima Toledo RN Unavailable [phone] Reason for Referral * Imaging (Urgent) - Closed Specialty Diagnoses / Procedures Referred By Contac t Referred To Contact RADIOLOGY Procedures USE ECHOCARDIOGRAM Lacey Barkley MD [address] [facility] [address] [address] Phone: tel: fax: Referral ID Status Reason Start Date Expiration Date Visits Re quested Visits Authorized [id number] Closed 09/27/2021 10/27/2022 1 1 E REPORT DEVELOPER * (Routine) - Closed Specialty Diagnoses / Procedures Referred By Contac t Referred To Contact Procedures PT Eval and Treat Margarita Sloan MD [address] [address] Phone: tel: fax: Referral ID Status Reason Start Date Expiration Date Visits Re quested Visits Authorized [id number] Closed 09/22/2021 10/22/2022 1 1 E REPORT DEVELOPER * (Routine) - Closed Specialty Diagnoses / Procedures Referred By Shelby jama Referred To Contact Procedures OT eval and treat Margarita Sloan MD [address] [place] [address] Phone: tel: fax: Referral ID Status Reason Start Date Expiration Date Visits Re quested Visits Authorized [id number] Closed 09/22/2021 10/22/2022 1 1 E REPORT DEVELOPER Reason for Visit * Auth/Cert Specialty Diagnoses / Procedures Referred By Shelby jama Referred To Contact Diagnoses colostomy in place Procedures CLOSE ENTEROSTOMY CYSTOSCOPY,INSERT URETERAL STENT LAPAROSCOPIC POSSIBLE OPEN HARTMANS REVERSAL, POSSIBLE BOWEL RESECTION Ureteral Stent Placement Referral ID Status Reason Start Date Expiration Date Visits Re quested Visits Authorized [id number] 1 1 Encounter Details Date Type Department Care Team (Latest Contact Info) Description 09/22/2021 6:03 AM OBIEE REPORT DEVELOPER - 10/02/2021 2:34 PM OBIEE REPORT DEVELOPER Hospital Encounter [facility] Med/Surg [address] [place] [address] Margarita Sloan MD [address] [facility] [address] [place] [address] Discharge Disposition: Home with Home Health Care Social History Tobacco Use Types Packs/Day [...] on file Legal Sex Male 9:58 PM OBIEE REPORT DEVELOPER Gender Identity Not on file Sexual Orientation Not on file COVID-19 Exposure Response Date Recorded In the last month, have you been in contact with someone who was confirmed or suspected to have Coronavirus / COVID-19? No / Unsure 10/01/2021 7:57 AM OBIEE REPORT DEVELOPER documented as of this encounter Last Filed Vital Signs Vital Sign Reading Time Taken Comments Blood Pressure 111/54 10/02/2021 11:51 AM OBIEE REPORT DEVELOPER Pulse 95 10/02/2021 11:51 AM OBIEE REPORT DEVELOPER Temperature 36.2 ??C (97.1 ??F) 10/02/2021 1 1:51 AM OBIEE REPORT DEVELOPER Respiratory Rate 20 10/02/2021 11:5 1 AM OBIEE REPORT DEVELOPER Oxygen Saturation 96% 10/02/2021 11: 51 AM OBIEE REPORT DEVELOPER Inhaled Oxygen Concentration - - Weight 72.9 kg (160 lb 11.5 oz) 10/02/2021 3:00 AM OBIEE REPORT DEVELOPER Height 170.2 cm (5' 7 ) 09/22/2021 4:43 PM OBIEE REPORT DEVELOPER Body Mass Index 25.17 09/22/2021 4:43 PM OBIEE REPORT DEVELOPER documented in this encounter Functional Status * Question Answer Date of Assessment Author Status Do you have serious difficulty walking or climbing stairs? No 10/02/2021 12:38 PM Annette Mercer RN Acti ve Do you have difficulty dressing or bathing? No 10/02/2021 12:38 PM Annette Mercer RN Active Because of a physical, mental, or emotional condition, do you have difficulty doing errands alone such as visiting a doctor's office or shopping? No 10/02/2021 12:38 PM Nikki Mercer i, RN Active * RETIRED Are you deaf or do you have serious difficulty hearing Answer Date of Assessment Author Status No 10/02/2021 12:38 PM OBIEE REPORT DEVELOPER Acti ve * RETIRED Are you blind or do you have serious difficulty seeing, even when wearing glasses? Answer Date of Assessment Author Status No 10/02/2021 12:38 PM OBIEE REPORT DEVELOPER Acti ve * Do you have serious difficulty walking or climbing stairs? Answer Date of Assessment Author Status No 10/02/2021 12:38 PM OBIEE REPORT DEVELOPER Annette Jorge R N Active * Do you have difficulty dressing or bathing? Answer Date of Assessment Author Status No 10/02/2021 12:38 PM OBIEE REPORT DEVELOPER Annette Jorge R N Active * Because of a physical, mental, or emotional condition, do you have difficulty doing errands alone such as visiting a doctor's office or shopping? Answer Date of Assessment Author Status No 10/02/2021 12:38 PM OBIEE REPORT DEVELOPER Annette Jorge R N Active documented as of this encounter Mental Status * Question Answer Entry Date Author Status Because of a physical, mental, or emotional condition, do you have serious difficulty concentrating, remembering, or making decisions? No 10/02/2021 12:38 PM OBIEE REPORT DEVELOPER Annette Jorge RN Active * Because of a physical, mental, or emotional condition, do you have serious difficulty concentrating, remembering, or making decisions? Answer Entry Date Author Status No 10/02/2021 12:38 PM OBIEE REPORT DEVELOPER Annette Jorge R N Active documented in this encounter Discharge Summaries * Aneesh Mesa MD - 10/02/2021 9:24 AM CST Hospitalist Discharge Summary Patient ID: Mandie Cotter. male. [id number]. [id number] Hospital Course: 66-year-old male presented with POD 10 Colostomy reversal complicated by Ileus, guido PO, w loose stools. Stable for DC to home medically, pending Surgery approval. Approved for DC to home b Dr Moreno (support appreciated) and Dr Sloan, f/u w Dr Sloan. Update Insurance reportedly declined both Metoprolol and Norvasc. Will resend ER for Metoprolol, and advised to f/u w PCP in 1wk. Assessment / Plan: S/p colostomy reversal: Presented for planned colostomy reversal??09/22??after Hudson's procedure for perforated diverticulitis Postop management per general surgery Pain control, monitor for toxicity N.p.o. per general surgery Zosyn per general surgery Await bowel function return Antiemetics PT/OT VTE prophylaxis per general surgery with Lovenox 09/25 significant NG tube output overnight less this a.m. multiple BMs this a.m. Adequate hydration 09/26 Tolerating CLD. ??Mild distension multiple bowel movements. 09/27 No distension, having BM's 09/29 No drainage per NGT, KUB and labs pending. 10/01 Advanced to Full Liquid diet per Surgery, KUB improved, s/p Zosyn with diarrhea ?? Diarrhea Pt with loose stools since 09/29 Some mild abdominal cramping Will D/C Zosyn Check stool for C. Diff per surgery ?? A.Fib RVR Converted back to NSR Discussed with Cardiology 30 day event monitor & ECHO recommended.?? Will continue BB.?? Continue Telemetry ?? Hypokalemia Due to NPO status, GI loss Replace and monitor ?? Hyperlipidemia: Statin ?? RANDY: CPAP nightly ?? VTE prophylaxis with Lovenox CODE STATUS full code ? Other changes to meds to be made based on progress during hospitalization. All plans discussed with patient/patient's family/e commerce developer. They are agreeable with plan and voiced understanding. ?? This note was dictated with [employer] medical dictation software; misspellings, punctuation errors, omitted words??or dictation variances may occur. Admit date: 09/22/2021 6:03 AM Discharge date: 10/02/21 Admitting Physician: aLcey Barkley MD Attending Physician: Margarita Sloan MD Primary Care Physician: LORIE CASTANON MD Discharge Physician: ANEESH MESA MD Primary Diagnoses: Patient Active Problem List Diagnosis ??? Cervical stenosis of spinal canal ??? H/O nicotine dependence ??? Hyperlipidemia ??? RANDY on CPAP ??? Pharyngoesophageal dysphagia ??? Bowel perforation (CMS/HCC) ??? Perforated diverticulum ??? Status post Neel procedure (CMS/HCC) ??? S/P laparoscopic procedure Discharged Condition: Stable Code Status: Full Code Indication for Admission: No chief complaint on file. Reason for hospitalization: Patient Active Problem List Diagnosis ??? Cervical stenosis of spinal canal ??? H/O nicotine dependence ??? Hyperlipidemia ??? RANDY on CPAP ??? Pharyngoesophageal dysphagia ??? Bowel perforation (CMS/HCC) ??? Perforated diverticulum ??? Status post Neel procedure (CMS/HCC) ??? S/P laparoscopic procedure Readmission/Mortality Score at discharge: Low 0-28, Medium 29-58, High >59 LACE+ Score Readmission Score: 48 Male Patient: 3 Urgent Admission: Discharge Institution: Length of Stay: 7 Alternative Level of Care Status: 0 ED Visits in Previous 6 Months: 0 Elective Admission in Previous Year: 6 Comorbidity Score (by age & number of urgent admissions): 32 Consults: IP CONSULT TO DIETITIAN IP CONSULT TO HOSPITALIST IP CONSULT TO PHARMACY Significant Diagnostic Studies: Recent Labs Lab 09/27/21 0827 09/28/21 0911 09/29/21 1236 09/30/21 0740 10/01/21 0620 10/02/21 0854 WBC 7.0 6.1 6.5 5.8 5.6 5.6 RBC 4.13* 3.92* 3.91* 3.92* 4.03* 3.98* HGB 13.4* 12.6* 12.6* 12.6* 12.8* 12.7* HCT 39.5* 36.8* 37.4* 37.3* 38.9* 39.1* MCV 95.6 93.9 95.7 95.2 96.5* 98.2* MCH 32.4* 32.1* 32.2* 32.1* 31.8* 31.9* MCHC 33.9 34.2 33.7 33.8 32.9 32.5 PLT 267 268 282 312 353 382* RDW 13.2 13.0 13.2 13.2 13.2 13.1 MPV 11.6 10.3 9.9 10.6 10.3 10.8 PERNEU 66.3 65.3 66.5 62.2 59.6 61.1 PERLYM 22.4 21.4 21.7 22.9 26.0 27.2 PERMON 8.3 10.3 9.5 11.6 11.2 9.2 NEUC 4.61 4.01 4.33 3.59 3.35 3.44 LYMC 1.56 1.31 1.41 1.32 1.46 1.53 Recent Labs Lab 09/27/21 0827 09/28/21 0911 09/28/21 1850 09/29/21 1236 09/30/21 0740 10/01/21 0620 10/02/21 0854 NA 142 142 -- 141 140 139 140 K 3.5 2.7* 3.2* 3.7 4.6 4.5 4.5 CL 104 103 -- 105 105 106 105 CO2 30.4 31.3 -- 30.5 27.8 30.0 29.2 AGAP 7.6 7.7 -- 5.5 7.2 3.0* 5.8 BUN 5* 3* -- 3* 2* 2* 5* CR 0.78 0.82 -- 0.73 0.70 0.73 0.80 BUNCREATININ 6.4 3.7* -- 4.1* 2.9* 2.7* 6.2 GFRNON >90 >90 -- >90 >90 >90 >90 GFR >90 >90 -- >90 >90 >90 >90 GLU 140* 115* -- 115* 104* 107* 121* CA 8.6 8.5 -- 8.4* 8.8 8.5 8.4* TP 6.7 6.4 -- 6.6 6.2* 6.5 6.8 ALB 3.1* 2.7* -- 3.0* 2.7* 2.9* 3.0* TBIL 0.9 0.7 -- 0.9 0.9 0.6 0.6 ALKP 24* 25* -- 32* 31* 33* 36* AST 30 26 -- 55* 43* 29 24 ALT 24 29 -- 70* 70* 60 50 No results for input(s): CHOL, TRI, HDL, LDL, HGBA1C, TSH in the last 168 hours. No results for input(s): APTT, INR, PTT in the last 168 hours. No results for input(s): TROP, TROPIWB, CKMB, CPK in the last 168 hours. No results for input(s): LACTICACID, PROCT in the last 168 hours. No results for input(s): PH, PCO2, PO2, O6DOLIDNLATC, BICARBWB, BASEDEFICIT, BASEEXCESS in the [id number] hours. Results for orders placed or performed during the hospital encounter of 03/18/21 URINALYSIS, AUTO, COMPLETE Result Value Ref Range COLOR (U) YELLOW TRANSPARENCY HAZY Specific [place] (U) 1.015 1.000 - 1.030 U PH 6.5 5.0 - 9.0 LEUKOCYTE ESTERASE NEGATIVE NEGATIVE NITRITES NEGATIVE NEGATIVE PROTEIN (U) NEGATIVE NEGATIVE URINE GLUCOSE NEGATIVE NEGATIVE U KETONES TRACE (A) NEGATIVE BILIRUBIN (U) NEGATIVE NEGATIVE BLOOD NEGATIVE NEGATIVE WBC/HPF NONE SEEN 0 - 5 /HPF RBC/HPF NONE SEEN 0 - 5 /HPF EPI/HPF FEW /HPF CULTURE & SENSITIVITY INDICATED? CULTURE IS NOT INDICATED CRYSTALS FEW /HPF Radiology Reports : No results found. Objective: Filed Vitals: 10/02/21 0100 10/02/21 0300 10/02/21 0733 10/02/21 1151 BP: 111/58 122/65 111/59 111/54 Pulse: 67 67 64 95 Resp: 18 18 20 20 Temp: 98.8 ??F (37.1 ??C) 97 ??F (36.1 ??C) 97.5 ??F (36.4 ??C) 97.1 ??F (36.2 ??C) TempSrc: Tympanic Tympanic Tympanic Tympanic SpO2: 96% 96% 97% 96% Weight: 72.9 kg (160 lb 11.5 oz) Height: Physical Exam: General: Laying in bed, NAD. Eyes: EOMI, PERRLA ENT: MMM Lungs: Dec BS in the bases, No wheezes, No crackles Cardiovascular: Regular rate rhythm, S1 and S2 normal, No murmurs, Abdomen: S, NT, no rebound/guarding. BS present. Extremities: Tr edema. Neurological: Tired, CN II-XII grossly intact Psych: Flat affect Discharge Medications: Medication List START taking these medications amLODIPine 5 MG tablet Commonly known as: NORVASC Take 1 tablet (5 mg total) by mouth daily. Start taking on: October 03, 2021 metoprolol succinate ER 50 MG 24 hr tablet Commonly known as: TOPROL-XL Take 1 tablet (50 mg total) by mouth daily. CONTINUE taking these medications aspirin 81 MG chewable tablet atorvastatin 40 MG tablet Commonly known as: LIPITOR TAKE 1 TABLET NIGHTLY AT BEDTIME- CHANGE FROM PRAVASTATIN LOW DENSITY LIPOPROTEIN CHOLESTEROL NOT TO GOAL CPAP SUPPLIES 1 Units by Does not apply route nightly at bedtime. Mask, tubing & filters Gas-X Extra Strength 125 MG chewable tablet Generic drug: simethicone vitamin C 100 MG tablet Vitamin D 50 MCG (1999 UT) Caps Vitamin E 400 units Tabs zinc gluconate 50 MG Tabs Where to Get Your Medications These medications were sent to [id number] - [place], [place] - [address] [place] [address] [place], [place] [address] ?? amLODIPine 5 MG tablet ?? metoprolol succinate ER 50 MG 24 hr tablet Medications Discontinued during this hospitalization: Medications Discontinued During This Encounter Medication Reason ??? ceFAZolin (ANCEF) 2 g in sterile water 20 mL IV ??? alvimopan (ENTEREG) capsule 12 mg Availability ??? indocyanine green (IC-GREEN) injection Patient Discharge ??? BUpivacaine 0.25%-EPINEPHrine 1:200,000-lidocaine 1%-EPINEPHrine 1:100,000 solution Patient Discharge ??? ceFAZolin (ANCEF) in NS 1000 mL irrigation solution Patient Discharge ??? acetaminophen (TYLENOL) tablet 975 mg Patient Transfer ??? acetaminophen (TYLENOL) suppository 650 mg Patient Transfer ??? acetaminophen (TYLENOL) 325 MG/10.15ML solution 650 mg Patient Transfer ??? chlorhexidine (PERIDEX) 0.12 % solution 15 mL Patient Transfer ??? metroNIDAZOLE (FLAGYL) IVPB 500 mg Patient Transfer ??? heparin (porcine) injection 5,000 Units Patient Transfer ??? chlorhexidine (PERIDEX) 0.12 % solution 15 mL Patient Transfer ??? fentaNYL (SUBLIMAZE) injection 25 mcg Patient Transfer ??? fentaNYL (SUBLIMAZE) injection 50 mcg Patient Transfer ??? lactated ringers infusion Therapy completed ??? lactated ringers infusion Therapy completed ??? HYDROcodone-acetaminophen (NORCO) 5-325 MG tablet 1 tablet ??? oxyCODONE-acetaminophen (PERCOCET) 5-325 MG tablet 1 tablet ??? Casanthranol-Docusate Sodium (LAXATIVE-STOOL SOFTNER OR) Error ??? HYDROcodone-acetaminophen 5-325 MG tablet Error ??? Na sulfate-K sulfate-Mg sulfate (SUPREP BOWEL PREP KIT) 17.5-3.13-1.6 GM/177ML Solution Error ??? acetaminophen (TYLENOL) suppository 650 mg Other- Please enter comment in Notes field ??? methocarbamol (ROBAXIN) injection 1 g Other- Please enter comment in Notes field ??? methocarbamol (ROBAXIN) injection 1 g Ordering Physician ??? acetaminophen (TYLENOL) tablet 650 mg Other- Please enter comment in Notes field ??? acetaminophen (TYLENOL) tablet 1,000 mg Other- Please enter comment in Notes field ??? docusate sodium (COLACE) capsule 100 mg Ordering Physician ??? atorvastatin (LIPITOR) tablet 40 mg Ordering Physician ??? dilTIAZem (CARDIZEM) injection 15 mg Ordering Physician ??? metoprolol tartrate (LOPRESSOR) tablet 25 mg ??? metoclopramide (REGLAN) injection 10 mg ??? sodium chloride 0.9% infusion Ordering Physician ??? dextrose 5 %-sodium chloride 0.45 % infusion Ordering Physician ??? piperacillin-tazobactam (ZOSYN) 3.375 g in sodium chloride 0.9 % 50 mL IVPB Ordering Physician ??? dextrose 5 % and 0.45 % NaCl with KCl 40 mEq infusion ??? METOPROLOL TARTRATE 50 MG tablet Stop Taking at Discharge Patient Instructions: Activity: as tolerated. Diet: Diet general Appropriate Therapy Ordered: No therapy plan of the specified type found. Follow-up appointments: No follow-ups on file. Followup Lab Orders: Time Spent on Discharge greater than 30 minutes. ANEESH MESA MD 10/02/2021 12:38 PM Inpatient E REPORT DEVELOPER E REPORT DEVELOPER documented in this encounter Discharge Instructions * Discharge Instructions* Annette Jorge RN - 10/02/2021 12:39 PM OBIEE REPORT DEVELOPER Patient Education Ostomy Reversal Why is this procedure done? An ostomy is a kind of surgery where the doctor makes an opening that connects your bowel to the outside of the body. The opening is called a stoma. This opening lets you get rid of the body's waste products. If the opening is coming from the small bowel, it is called an ileostomy or jejunostomy. If it is coming from the large bowel, it is a colostomy. Sometimes you may only need your ostomy for a short time. Then the doctor will do an ostomy reversal to join the ends of your bowel back together again. The opening in the skin is also closed. The doctor will suggest this procedure when your bowels have healed and you no longer need the ostomy. What will the results be? You will no longer have a stoma and your bowel movements will leave your body through your rectum. What happens before the procedure? Your doctor will take your history. Talk to the doctor about: ?? All the drugs you are taking. Be sure to include all prescription and area-uvk-ninpvlz (OTC) drugs, and herbal supplements. Tell the doctor about any drug allergy. Bring a list of drugs you take with you. ?? Any bleeding problems. Be sure to tell your doctor if you are taking any drugs that may cause bleeding. Some of these are warfarin, rivaroxaban, apixaban, ticagrelor, clopidogrel, ketorolac, ibuprofen, naproxen, or aspirin. Certain vitamins and herbs, such as garlic and fish oil, may also add tothe risk for bleeding. You may need to stop these drugs as well. Talk to your doctor about them. ?? When you need to stop eating or drinking before your procedure. ?? If you need to do a bowel prep to clear out your stomach and bowels before your procedure. Your doctor will do an exam and may order: ?? Lab tests ?? X-rays ?? CT scan You will not be allowed to drive right away after the procedure. Ask a family member or a friend todrive you home. What happens during the procedure? ?? Once you are in the operating room, the staff will put an IV in your arm to give you fluids and drugs. You will be given a drug to make you sleepy. It will also help you stay pain free during the surgery. ?? When you are asleep, the doctor will put a tube in your mouth to help you breathe. Another smalltube is put in your nose and goes down to your stomach to drain any food or fluid that might come out during surgery. You will also have a tube in your bladder to drain urine. ?? Your surgery may be done with either an open or a laparoscopic procedure. ? Open ? The doctor makes a long cut on your belly to do the surgery. ? Laparoscopic ? The doctor will make 3 to 4 small cuts in your belly. A scope with a tiny camera is put through one of the small cuts to look at the area. Your doctor will put small surgical tools into the holes to do the procedure. To be able to view the site, gas will be put in the belly. ?? The doctor will join the ends of your bowel together and close the cut on your belly. ?? The procedure may take 2 to 4 hours. What happens after the procedure? ?? You will go to the Recovery Room and the staff will watch you closely. You may have to stay in the hospital for 3 to 10 days. Your doctor will tell you when you can go home. ?? You may feel pain on the wound site. Your doctor will order drugs to ease the pain. ?? Your doctor will order clear liquids for you when you start to eat. What care is needed at home? ?? Ask your doctor what you need to do when you go home. Make sure you ask questions if you do not understand what the doctor says. This way you will know what you need to do. ?? Talk to your doctor about how to care for your cut site. Ask your doctor about: ? When you should change your bandages. ? When you may take a bath or shower. ? If you need to be careful with lifting things over 10 pounds. ? When you may go back to your normal activities like work or driving. ?? Be sure to wash your hands before and after touching your wound or dressing. ?? Talk to the doctor about what kinds of foods are OK for you to eat. You may need to be on a special diet. ?? Do not take laxatives. Ask your doctor before taking any drugs. ?? Use a soft cloth after each bowel movement. Your doctor may suggest you put petroleum jelly, zinc oxide, or other cream or ointment on your bottom after each bowel movement to protect your skin. What follow-up care is needed? ?? Your doctor may ask you to make visits to the office to check on your progress. Be sure to keep these visits. ?? If you have stitches or senthil, you will need to have them taken out. Your doctor will often want to do this in 1 to 2 weeks. What problems could happen? ?? Bleeding ?? Infection ?? Loose, watery stools ?? Increased gas ?? Frequent stools ?? Urgent need to have stools ?? Bowel obstruction When do I need to call the doctor? ?? Signs of infection. These include a fever of 100.4??F (38??C) or higher, chills, pain or numbness, redness and pus at the wound site. ?? Signs of fluid loss. These include dark-colored urine or no urine for more than 8 hours, dry mouth, cracked lips, dry skin, sunken eyes, lack of energy, feeling faint or passing out. ?? Very bad belly pain or your belly feels swollen or bloated ?? Very hard stools ?? More than 10 to 15 liquid stools in a day ?? Black, tarry, or bloody stools ?? Upset stomach or throwing up Where can I learn more? NHS Choices http://www.nhs.uk/conditions/Colostomy/Pages/Reversal.aspx Last Reviewed Date 2019-09-24 Consumer Information Use and Disclaimer This information is not specific medical advice and does not replace information you receive from your health care provider. This is only a brief summary of general information. It does NOT include all information about conditions, illnesses, injuries, tests, procedures, treatments, therapies, discharge instructions or life-style choices that may apply to you. You must talk with your health care provider for complete information about your health and treatment options. This information should not be used to decide whether or not to accept your health care provider???s advice, instructions or recommendations. Only your health care provider has the knowledge and training to provide advice that is right for you. Copyright Copyright ?? 2020 [employer]. and its affiliates and/or licensors. All rights reserved. Wound vac ordered through [facility]. [phone]. [facility] Home Health to follow . [phone] E REPORT DEVELOPER * Additional Instructions* Annette Jorge RN - 10/02/2021 2:08 PM OBIEE REPORT DEVELOPER Change wound vac drsg q Monday, , Saturdays E REPORT DEVELOPER documented in this encounter Medications at Time [...] by mouth daily. Indications: Nutritional Support 1 AMLODIPINE 5 MG tablet [The details of the medication are not available because there are pending changes by a home health clinician.] 30 tablet 1 11/01/20 21 atorvastatin 40 MG tabletIndications:M ixed hyperlipidemia TAKE 1 TABLET NIGHTLY AT BEDTIME- CHANGE FROM PRAVASTATIN LOW DENSITY LIPOPROTEIN CHOLESTEROL NOT TO GOAL 90 tablet 1 1 05/02/20 22 CPAP SUPPLIESIndications :RANDY on CPAP 1 Units by Does not apply route nightly at bedtime. Mask, tubing & filters 1 Device 3 0 10/09/20 24 METOPROLOL SUCCINATE ER 50 MG 24 hr tablet [The details of the medication are not available because there are pending changes by a home health clinician.] 30 tablet 1 11/01/20 21 simethicone (GAS-X EXTRA STRENGTH) 125 MG chewable tabletIndications:G as Pain Chew 125 mg by mouth every 6 (six) hours as needed. Indications: Gas Pain 1 01/12/20 22 documented as of this encounter Progress Notes * MICHAEL Lovett Associate Civil Engineer - 10/02/2021 2:34 PM CST Anesthesia Record Closure: As a Chart Correction Associate Civil Engineer, I closed the Anesthesia Record due to ageof the record. All required documentation was previously completed and signed by HOOKING MACHINE OPERATOR. * Annette Jorge RN - 10/02/2021 1:12 PM CST Problem: Reduced risk for falls/injury Goal: Reduced Risk for Falls/Injury Outcome: Adequate for Discharge Problem: Discharge Planning Goal: Knowledge of discharge instructions Outcome: Adequate for Discharge Problem: Body Image - Altered Goal: Acceptance of altered body image Outcome: Adequate for Discharge Problem: Bowel Function - Altered Goal: Bowel elimination within specified parameters Outcome: Adequate for Discharge Problem: Deep Venous Thrombosis - Risk of Goal: Absence of deep venous thrombosis Outcome: Adequate for Discharge Problem: Infection - Risk of, Surgical Site Infection Goal: Absence of surgical site infection Outcome: Adequate for Discharge Problem: Pain - Acute Goal: Reduced pain sensation Outcome: Adequate for Discharge Problem: Urinary Elimination - Impaired Goal: Urinary elimination within specified parameters Outcome: Adequate for Discharge Problem: Skin integrity, Impaired-wound Goal: Evidence of wound healing Outcome: Adequate for Discharge E REPORT DEVELOPER * Tiffani Moreno MD - 10/02/2021 12:32 PM CST POD # 10 No complaints, still has loose stools but is improving daily Vitals: 09/03/21 0858 09/22/21 0622 09/22/21 0804 09/22/21 1454 BP: (!) 143/92 140/69 (!) 153/51 BP Location: Right arm Left arm Patient Position: Lying Lying Cuff size: Adult Regular Pulse: 87 69 74 Temp: 97.7 ??F (36.5 ??C) 96.6 ??F (35.9 ??C) TempSrc: Tympanic Temporal Weight: 73 kg (161 lb) Height: 5' 7 (1.702 m) 09/22/21 1455 09/22/21 1500 09/22/21 1505 09/22/21 1510 BP: 143/68 144/58 (!) 158/63 147/78 BP Location: Patient Position: Cuff size: Pulse: 71 72 78 73 Temp: TempSrc: Weight: Height: 09/22/21 1515 09/22/21 1520 09/22/21 1525 09/22/21 1545 BP: 144/77 (!) 160/72 (!) 151/63 BP Location: Left arm Patient Position: Lying Cuff size: Adult Long Pulse: 74 72 77 78 Temp: 97.2 ??F (36.2 ??C) TempSrc: Tympanic Weight: Height: 09/22/21 1600 09/22/21 1615 09/22/21 1630 09/22/21 1643 BP: (!) 186/45 (!) 155/68 (!) 198/73 BP Location: Left arm Left arm Left arm Patient Position: Lying Lying Lying Cuff size: Adult Long Adult Long Adult Long Pulse: 83 72 80 Temp: TempSrc: Weight: 73 kg (161 lb) Height: 5' 7 (1.702 m) 09/22/21 1645 09/22/21 1715 09/22/21 1745 09/22/21 1845 BP: (!) 150/62 149/72 140/71 146/71 BP Location: Left arm Left arm Left arm Left arm Patient Position: Lying Lying Lying Lying Cuff size: Adult Long Adult Long Adult Long Adult Long Pulse: 81 81 79 79 Temp: 99.3 ??F (37.4 ??C) TempSrc: Tympanic Weight: Height: 09/22/21 1900 09/22/21 2340 09/23/21 0700 09/23/21 1100 BP: 147/65 121/48 122/59 122/60 BP Location: Left arm Left arm Left arm Left arm Patient Position: Lying Lying Lying Sitting Cuff size: Adult Long Adult Long Adult Long Adult Regular Pulse: 79 74 73 94 Temp: 99.4 ??F (37.4 ??C) 100 ??F (37.8 ??C) 98.4 ??F (36.9 ??C) 98.2 ??F (36.8 ??C) TempSrc: Tympanic Tympanic Temporal Temporal Weight: 72.3 kg (159 lb 6.3 oz) Height: 09/23/21 1546 09/23/21 1930 09/23/21201109/23/21 2300 BP: 146/62 146/68 146/68 (!) 152/70 BP Location: Left arm Left arm Left arm Patient Position: Lying Lying Lying Cuff size: Adult Regular Adult Regular Adult Regular Pulse: 84 90 92 Temp: 98.5 ??F (36.9 ??C) 100.2 ??F (37.9 ??C) 99.3 ??F (37.4 ??C) 99.9 ??F (37.7 ??C) TempSrc: Temporal Temporal Tympanic Weight: Height: 09/24/21 0349 09/24/21 0708 09/24/21 1113 09/24/21 1559 BP: 141/71 (!) 151/77 Comment: RN notified (!) 161/67 142/64 BP Location: Left arm Left arm Left arm Left arm Patient Position: Lying Lying Lying Lying Cuff size: Adult Regular Adult Long Adult Regular Adult Regular Pulse: 88 84 86 90 Temp: 98.1 ??F (36.7 ??C) 98.7 ??F (37.1 ??C) 97.9 ??F (36.6 ??C) 98.1 ??F (36.7 ??C) TempSrc: Tympanic Tympanic Temporal Temporal Weight: 75.4 kg (166 lb 3.6 oz) Height: 09/24/21 2035 09/24/21 2340 09/25/21 0549 09/25/21 0811 BP: (!) 154/74 (!) 154/75 138/68 BP Location: Left arm Left arm Left arm Patient Position: Lying Lying Lying Cuff size: Adult Regular Adult Regular Adult Regular Pulse: 90 82 85 Temp: 99.3 ??F (37.4 ??C) 99.3 ??F (37.4 ??C) 98.4 ??F (36.9 ??C) TempSrc: Tympanic Tympanic Temporal Weight: 75 kg (165 lb 5.5 oz) Height: 09/25/21 1134 09/25/21 1654 09/25/21 1935 09/25/21 2316 BP: 125/63 (!) 152/62 148/71 (!) 153/56 BP Location: Left arm Left arm Left arm Left arm Patient Position: Sitting Sitting Lying Lying Cuff size: Adult Long Adult Long Adult Regular Adult Regular Pulse: 89 102 85 84 Temp: 98.5 ??F (36.9 ??C) 97.5 ??F (36.4 ??C) 98.3 ??F (36.8 ??C) 99 ??F (37.2 ??C) TempSrc: Temporal Temporal Temporal Temporal Weight: Height: 09/26/21 0354 09/26/21 0738 09/26/21 1100 09/26/21 1741 BP: 148/70 147/75 142/88 (!) 114/90 BP Location: Left arm Left arm Left arm Left arm Patient Position: Lying Lying Sitting Sitting Cuff size: Adult Regular Adult Regular Adult Regular Adult Regular Pulse: 86 79 52 60 Temp: 98.1 ??F (36.7 ??C) 97.8 ??F (36.6 ??C) 96.6 ??F (35.9 ??C) 98.5 ??F (36.9 ??C) TempSrc: Temporal Oral Temporal Temporal Weight: 75.8 kg (167 lb 1.7 oz) Height: 09/26/21 2352 09/27/21 0247 09/27/21 0409 09/27/21 0718 BP: 120/64 140/66 128/70 BP Location: Left arm Left arm Left arm Left arm Patient Position: Lying Lying Lying Sitting Cuff size: Adult Regular Adult Regular Adult Regular Adult Regular Pulse: 92 78 74 106 Temp: 97.6 ??F (36.4 ??C) 97.5 ??F (36.4 ??C) 98.5 ??F (36.9 ??C) TempSrc: Tympanic Tympanic Temporal Weight: 77.2 kg (170 lb 3.1 oz) Height: 09/27/21 1100 09/27/21 1725 09/27/21 2036 09/28/21 0250 BP: 120/68 138/70 132/77 135/68 BP Location: Left arm Left arm Left arm Left arm Patient Position: Sitting Sitting Lying Lying Cuff size: Adult Regular Adult Regular Adult Regular Adult Regular Pulse: 76 113 72 73 Temp: 98.1 ??F (36.7 ??C) 98.3 ??F (36.8 ??C) 99 ??F (37.2 ??C) 97.7 ??F (36.5 ??C) TempSrc: Temporal Temporal Temporal Tympanic Weight: 74.6 kg (164 lb 7.4 oz) Height: 09/28/21 0925 09/28/21 1115 09/28/21 1610 09/28/211999 BP: 138/74 122/70 134/71 143/77 BP Location: Left arm Left arm Left arm Left arm Patient Position: Lying Lying Sitting Lying Cuff size: Adult Regular Adult Regular Adult Regular Adult Regular Pulse: 61 67 76 75 Temp: 97.5 ??F (36.4 ??C) 97.5 ??F (36.4 ??C) 97.8 ??F (36.6 ??C) 99.1 ??F (37.3 ??C) TempSrc: Tympanic Tympanic Tympanic Tympanic Weight: Height: 09/29/21 0000 09/29/21 0421 09/29/21 0600 09/29/21 0700 BP: 145/71 135/49 129/74 BP Location: Left arm Left arm Left arm Patient Position: Lying Lying Sitting Cuff size: Adult Long Adult Long Adult Long Pulse: 78 Temp: 98.6 ??F (37 ??C) 99.2 ??F (37.3 ??C) 98.1 ??F (36.7 ??C) TempSrc: Oral Oral Temporal Weight: 74.7 kg (164 lb 10.9 oz) Height: 09/29/21 1100 09/29/21 1500 09/29/21200209/30/21 0404 BP: 125/74 137/71 135/62 129/73 BP Location: Left arm Left arm Left arm Left arm Patient Position: Sitting Sitting Lying Lying Cuff size: Adult Long Adult Long Adult Regular Adult Regular Pulse: 71 77 71 67 Temp: 97.1 ??F (36.2 ??C) 97.5 ??F (36.4 ??C) 98.7 ??F (37.1 ??C) 96.5 ??F (35.8 ??C) TempSrc: Temporal Temporal Tympanic Tympanic Weight: 74.2 kg (163 lb 9.3 oz) Height: 09/30/21 0730 09/30/21 1259 09/30/21 1618 09/30/21 1700 BP: 130/66 129/75 117/43 124/63 BP Location: Left arm Left arm Left arm Patient Position: Lying Sitting Lying Cuff size: Adult Regular Adult Regular Adult Regular Pulse: 70 63 63 75 Temp: 97.2 ??F (36.2 ??C) 96.6 ??F (35.9 ??C) 98.1 ??F (36.7 ??C) TempSrc: Tympanic Tympanic Tympanic Weight: Height: 09/30/21 2057 10/01/21 0057 10/01/21 0324 10/01/21 0715 BP: 113/61 114/54 136/65 116/58 BP Location: Left arm Left arm Left arm Left arm Patient Position: Lying Lying Lying Lying Cuff size: Adult Regular Adult Regular Adult Regular Pulse: 66 71 77 60 Temp: 99.1 ??F (37.3 ??C) 98.7 ??F (37.1 ??C) 98.9 ??F (37.2 ??C) 97.8 ??F (36.6 ??C) TempSrc: Tympanic Tympanic Tympanic Temporal Weight: 73.3 kg (161 lb 9.6 oz) Height: 10/01/21 1119 10/01/21 1551 10/01/21 1720 10/01/21 1900 BP: 107/62 115/66 109/54 115/53 BP Location: Left arm Left arm Left arm Patient Position: Sitting Sitting Lying Cuff size: Adult Regular Adult Regular Adult Regular Pulse: 70 70 72 77 Temp: 97.5 ??F (36.4 ??C) 97.9 ??F (36.6 ??C) 98.5 ??F (36.9 ??C) TempSrc: Temporal Tympanic Tympanic Weight: Height: 10/02/21 0100 10/02/21 0300 10/02/21 0733 10/02/21 1151 BP: 111/58 122/65 111/59 111/54 BP Location: Left arm Left arm Left arm Left arm Patient Position: Lying Lying Sitting Sitting Cuff size: Adult Regular Adult Regular Adult Long Pulse: 67 67 64 95 Temp: 98.8 ??F (37.1 ??C) 97 ??F (36.1 ??C) 97.5 ??F (36.4 ??C) 97.1 ??F (36.2 ??C) TempSrc: Tympanic Tympanic Tympanic Tympanic Weight: 72.9 kg (160 lb 11.5 oz) Height: Intake/Output Summary (Last 24 hours) at 10/02/2021 1233 Last data filed at 10/02/2021 1151 Gross per 24 hour Intake 2642 ml Output 225 ml Net 2417 ml \ Abdomen: soft , serosanguinous drainage minimal in JITENDRA drain CBC Lab Results Component Value Date/Time WBC 5.6 10/02/2021 08:54 AM Lab Results Component Value Date/Time RBC 3.98 (L) 10/02/2021 08:54 AM Lab Results Component Value Date/Time HGB 12.7 (L) 10/02/2021 08:54 AM Lab Results Component Value Date/Time HCT 39.1 (L) 10/02/2021 08:54 AM BMP Lab Results Component Value Date/Time CO2 29.2 10/02/2021 08:54 AM Lab Results Component Value Date/Time CA 8.4 (L) 10/02/2021 08:54 AM Lab Results Component Value Date/Time CL 105 10/02/2021 08:54 AM Lab Results Component Value Date/Time CR 0.80 10/02/2021 08:54 AM Lab Results Component Value Date/Time GLU 121 (H) 10/02/2021 08:54 AM Lab Results Component Value Date/Time NA 140 10/02/2021 08:54 AM Lab Results Component Value Date/Time K 4.5 10/02/2021 08:54 AM Lab Results Component Value Date/Time BUN 5 (L) 10/02/2021 08:54 AM A) s/p colostomy reversal Complicated by post op ileus Which has resolved P) Stable for discharge No lifting greater than 10 pounds Instruct on care of JITENDRA drain F/u Dr Sloan next week GABRIELLE E REPORT DEVELOPER * Evie Antony RN - 10/01/2021 3:35 PM CST INTERDISCIPLINARY CARE CONFERENCE: TEAM ATTENDANCE: CASE MANAGEMENT, UR, NURSING, PT, OT, CARDIOPULMONARY, MANAGER SITE, HOSPITALIST HOME HEALTH,PASTORAL CARE, PHARMACY Meeting held at 1100. NG removes. Full Liquid diet. 1400 wound vac ordered through [employer]. Patient picked [facility] health to follow stated has used in the past . Referral sent. E REPORT DEVELOPER * Aneesh Mesa MD - 10/01/2021 1:16 PM CST Hospitalist Daily Progress Note Subjective Mandie Cotter is a 66-year-old male on hospital day 9 No acute events overnight. Still reports loose stools however improving from yesterday. Otherwise doing well. Tolerating modified diet. Pain controlled. Voiding without difficulty Review of Systems Constitutional: Negative for chills, diaphoresis, fever and malaise/fatigue. HENT: Negative. Eyes: Negative for blurred vision and double vision. Respiratory: Negative for cough, sputum production, shortness of breath and wheezing. Cardiovascular: Negative for chest pain, palpitations, orthopnea and leg swelling. Gastrointestinal: Positive for diarrhea. Negative for abdominal pain, blood in stool, constipation,nausea and vomiting. Genitourinary: Negative for dysuria, frequency and hematuria. Musculoskeletal: Negative. Negative for falls. Skin: Negative. Neurological: Negative for dizziness, speech change, focal weakness and headaches. Psychiatric/Behavioral: Negative. Patient seen and examined, notes were reviewed Medication amLODIPine 5 mg Oral Daily enoxaparin 40 mg Subcutaneous Q24H metoclopramide 10 mg Intravenous Q6H metoprolol tartrate 50 mg Oral Q8H pantoprazole 40 mg Intravenous Daily dextrose 5 % and 0.45 % NaCl with KCl 40 mEq 125 mL/hr at 10/01/21 0923 PRN Meds: [DISCONTINUED] acetaminophen OR [DISCONTINUED] acetaminophen OR acetaminophen, diphenhydrAMINE, HYDROcodone-acetaminophen, HYDROmorphone, HYDROmorphone, ondansetron, oxyCODONE-acetaminophen, phenol, prochlorperazine, sodium chloride 0.9% Objective PHYSICAL EXAMINATION: Vital 24 Hour Range Most Recent Value Temperature Temp Min: 97.5 ??F (36.4 ??C) Max: 99.1 ??F (37.3 ??C) 97.5 ??F (36.4 ??C) Pulse Pulse Min: 60 Max: 77 70 Respiratory Resp Min: 12 Max: 20 20 Blood Pressure BP Min: 107/62 Max: 136/65 107/62 Pulse Oximetry SpO2 Min: 94 % Max: 100 % 100 % O2 No data recorded Vital Most Recent Value First Value Weight 73.3 kg (161 lb 9.6 oz) Weight: 73 kg (161 lb) Height 5' 7 (170.2 cm) Height: 5' 7 (170.2 cm) BMI 25.22 N/A Estimated body mass index is 25.31 kg/m?? as calculated from the following: Height as of this encounter: 5' 7 (1.702 m). Weight as of this encounter: 73.3 kg (161 lb 9.6 oz). Physical Exam Constitutional: Appearance: Normal appearance. He is normal weight. HENT: Head: Normocephalic and atraumatic. Eyes: Extraocular Movements: Extraocular movements intact. Conjunctiva/sclera: Conjunctivae normal. Pupils: Pupils are equal, round, and reactive to light. Cardiovascular: Rate and Rhythm: Normal rate. Pulmonary: Effort: Pulmonary effort is normal. No respiratory distress. Abdominal: General: Abdomen is flat. There is no distension. Musculoskeletal: General: Normal range of motion. Skin: General: Skin is warm and dry. Neurological: General: No focal deficit present. Mental Status: He is alert and oriented to person, place, and time. Mental status is at baseline. Intake/Output last 3 shifts: I/O last 3 completed shifts: In: 2438 [P.O.:2438] Out: 2410 [Urine:2300; Drains:110] Labs: Recent Results (from the past 24 hour(s)) CLOSTRIDIUM DIFFICILE Collection Time: 09/30/21 4:04 PM Result Value Ref Range GDH ANTIGEN NEGATIVE NEGATIVE C DIFFICILE TOXIN A&B (STOOL) NEGATIVE NEGATIVE COMMENT [facility] NEGATIVE/TOXIN A & B NEGATIVE: NEGATIVE FOR TOXIGENIC C. GDH NEGATIVE/TOXIN A & B NEGATIVE: NEGATIVE FOR TOXIGENIC C. DIFFICILE. COMPREHENSIVE METABOLIC PANEL Collection Time: 10/01/21 6:20 AM Result Value Ref Range GLUCOSE 107 (H) 70 - 99 MG/DL BUN 2 (L) 7 - 18 MG/DL CREATININE S/P/B 0.73 0.7 - 1.3 MG/DL SODIUM 139 136 - 145 MMOL/L POTASSIUM 4.5 3.5 - 5.1 MMOL/L CHLORIDE S/P/B 106 100 - 108 MMOL/L CO2 30.0 21 - 32 MMOL/L CALCIUM 8.5 8.5 - 10.1 MG/DL BILIRUBIN TOTAL S/P/B 0.6 0.2 - 1.2 MG/DL TOTAL PROTEIN S/P/B 6.5 6.4 - 8.2 G/DL ALBUMIN S/P/B 2.9 (L) 3.4 - 5.0 G/DL AST 29 15 - 37 U/L ALT 60 16 - 60 U/L ALKALINE PHOSPHATASE S/P/B 33 (L) 50 - 136 U/L ANION GAP 3.0 (L) 5 - 15 MMOL/L BUN CREATININE RATIO 2.7 (L) 6 - 26 A/G RATIO 0.8 (L) 1.0 - 2.0 RATIO eGFR Non-Afr. Amer. >90 >90 ML/MIN/1.73 M2 eGFR Afr. Amer. >90 >90 ML/MIN/1.73 M2 CBC W/DIFF AUTOMATED Collection Time: 10/01/21 6:20 AM Result Value Ref Range WBC 5.6 4.4 - 11.0 x10'3/uL RBC 4.03 (L) 4.50 - 5.90 x10'6/uL HGB 12.8 (L) 14.0 - 17.5 G/DL HCT 38.9 (L) 41.5 - 50.4 % MCV 96.5 (H) 80.0 - 96.0 FL MCH 31.8 (H) 26.5 - 31.4 PG MCHC 32.9 31.9 - 34.8 G/DL RDW 13.2 12.3 - 14.3 % PLT 353 151 - 353 x10'3/uL MPV 10.3 9.7 - 11.9 FL RBC MORPHOLOGY NORMAL PLT MORPH. NORMAL WBC MORPHOLOGY NORMAL LYMPHOCYTES 26.0 15.8 - 45.0 % NEUTROPHILS 59.6 42.1 - 71.9 % MONOCYTES 11.2 5.7 - 12.5 % EOSINOPHILS 2.1 0.0 - 5.6 % BASOPHILS 0.7 0.0 - 1.3 % ABS. NEUTROPHILS 3.35 1.40 - 6.00 x10'3/uL IMMATURE GRANS 0.4 0.0 - 0.5 % ABS. LYMPHOCYTES 1.46 0.80 - 4.70 x10'3/uL MAGNESIUM Collection Time: 10/01/21 6:20 AM Result Value Ref Range MAGNESIUM 2.0 1.8 - 2.4 MG/DL Imagining & Other Studies Radiology Results (Last 30 days) 10/01/21 0839 XR ABD KUB Final result Impression: IMPRESSION: 1. Improved air-filled small bowel loops with minimal residual. No dilatation on today's exam. Also reduction in amount of air within nondilated colon. May be due to resolving ileus. 2. . No intra-abdominal mass. Stable overlying skin senthil. Surgical clips in the pelvis with overlying drain in place. 3. No distinct calculi overlying the kidneys. Lung bases are clear.. Degenerative change in lumbar spine. Ordered By: TIFFANI MORENO Interpreted By: Víctor Jin, 10/01/2021 9:03 AM 09/29/21 0859 XR ABD KUB Final result Impression: FINDINGS IMPRESSION : CHEST: 1. The cardiac configuration is normal. Lung bases are clear, within the [id number]. ABDOMEN: 1. No free air below the diaphragm. 2. Persistent dilated loops of small bowel, air throughout the colon, slightly improved since the previous exam. 3. Nasogastric tube in place with the tip at the expected location of the fundus of the stomach. 4. Pelvic drain. Skin staple rows left upper quadrant, midabdomen and right upper quadrant 5. Renal shadows obscured by bowel. 6. Degenerative changes of the spine and hips. Ordered By: TIFFANI MORENO Interpreted By: Moncho Cheng, 09/29/2021 12:32 PM 09/27/21 1434 USE ECHOCARDIOGRAM Final result 09/27/21 1427 XR ABD KUB Final result Impression: FINDINGS IMPRESSION : CHEST: 1. The cardiac configuration is normal. Lung bases are clear, within the [id number]. ABDOMEN: 1. No free air below the diaphragm. 2. Numerous dilated loops of small bowel either secondary to ileus or distal small bowel obstruction 3. Surgical changes right upper quadrant and left lower quadrant. Drain in the pelvis. 4. Degenerative changes of the lower lumbar spine and hips. Ordered By: MARGARITA SLOAN Interpreted By: Moncho Cheng, 09/27/2021 4:08 PM 09/24/21 1519 XR CHEST PORTABLE Final result Impression: FINDINGS AND IMPRESSION: CHEST: 1. The cardiomediastinal silhouette is not enlarged. Mild atherosclerotic aorta 2. The lungs are well expanded and clear. 3. Nasogastric tube coursing along the expected location of the cervical os with its tip at the expected location of the fundus of the stomach 4. No significant pleural effusion, no pneumothorax. 5. Degenerative changes of the spine and shoulders. Status post anterior cervical fusion. 6. Distended loops of bowel noted at the margin of the [id number] Ordered By: MARGARITA SLOAN Interpreted By: Moncho Cheng, 09/24/2021 3:23 PM Results for orders placed or performed during the hospital encounter of 09/22/21 ECG 12 lead Narrative [facility] Test Date: 2021-09-24 Pat Name: MANDIE COTTER Department: Room: 109 Gender: Male Laster Hand: : 1955 Requested By: PORSCHE LORD Order Number: [id number] Reading MD: Toño Lovett Measurements Intervals [place] Rate: 93 P: 30 OH: 136 QRS: 13 QRSD: 98 T: 53 QT: 353 QTc: 439 Interpretive Statements SINUS RHYTHM Compared to ECG 03/18/2021 10:08:00 T-wave abnormality no longer present E REPORT DEVELOPER ECG 12 lead Narrative [facility] Test Date: 2021-09-26 Pat Name: MANDIE COTTER Department: Room: 1091 Gender: Male Laster Hand: : 1955 Requested By: LACEY BARKLEY Order Number: [id number] Reading MD: Toño Lovett Measurements Intervals [place] Rate: 127 P: OH: 0 QRS: 9 QRSD: 91 T: 32 QT: 306 QTc: 445 Interpretive Statements ATRIAL FIBRILLATION WITH RAPID VENTRICULAR RESPONSE WITH ABERRANT CONDUCTION OR VENTRICULAR PREMATURE COMPLEXES NONSPECIFIC ST & T-WAVE ABNORMALITY ABNORMAL RHYTHM ECG Compared to ECG 09/24/2021 12:41:26 Ventricular premature complex(es) now present Aberrant conduction of supraventricular beat(s) now present T-wave abnormality now present Sinus rhythm no longer present E REPORT DEVELOPER ECG [address] [facility] [place] Test Date: 2021-09-27 Pat Name: MANDIE COTTER Department: Room: 1091 Gender: Male Laster Hand: : 1955 Requested By: LACEY BARKLEY Order Number: [id number] Reading MD: Ben Diego Measurements Intervals [place] Rate: 67 P: 5 OH: 111 QRS: 32 QRSD: 101 T: 46 QT: 392 QTc: 416 Interpretive Statements SINUS RHYTHM WITH SHORT OH INTERVAL NONSPECIFIC ST & T-WAVE ABNORMALITY Compared to ECG 09/26/2021 12:44:09 Short OH interval now present Atrial fibrillation no longer present Aberrant conduction of supraventricular beat(s) no longer present Ventricular premature complex(es) no longer present T-wave abnormality still present E REPORT DEVELOPER Assessment & Plan Length of stay (DAYS):9 Problem List Items Addressed This Visit None Visit Diagnoses Col[facility] in place ([facility] Relevant Medications acetaminophen (TYLENOL) tablet 1,000 mg (Completed) ceFAZolin (ANCEF) 2 g in sterile water 20 mL IV (Completed) celecoxib (CeleBREX) capsule 200 mg (Completed) gabapentin (NEURONTIN) capsule 600 mg (Completed) metroNIDAZOLE (FLAGYL) IVPB 500 mg (Completed) scopolamine (TRANSDERM-SCOP) 1 MG/3DAYS patch 1 patch (Completed) Other Relevant Orders Intermittent Pneumatic Compression Device Applied (Completed) TYPE & SCREEN (Completed) S/p colostomy reversal: Presented for planned colostomy reversal 09/22 after Hudson's procedure for perforated diverticulitis Postop management per general surgery Pain control, monitor for toxicity N.p.o. per general surgery Zosyn per general surgery Await bowel function return Antiemetics PT/OT VTE prophylaxis per general surgery with Lovenox 09/25 significant NG tube output overnight less this a.m. multiple BMs this a.m. Adequate hydration 09/26 Tolerating CLD. Mild distension multiple bowel movements. 09/27 No distension, having BM's 09/29 No drainage per NGT, KUB and labs pending. 09/30: Advance to Full Liquid diet per Surgery, KUB improved, D/C Zosyn with diarrhea Advancing diet, possible DC in a.m. pending improvement of stools and diet tolerability per generalsurgery Diarrhea Pt with loose stools since 09/29 Some mild abdominal cramping Will D/C Zosyn Check stool for C. Diff per surgery A.Fib RVR Converted back to NSR Discussed with Cardiology 30 day event monitor & ECHO recommended. Will continue BB. Continue Telemetry Hypokalemia Due to NPO status, GI loss Replace and monitor Hyperlipidemia: Statin RANDY: CPAP nightly VTE prophylaxis with Lovenox CODE STATUS full code Other changes to meds to be made based on progress during hospitalization. All plans discussed with patient/patient's family/e commerce developer. They are agreeable with plan and voiced understanding. This note was dictated with [employer] medical dictation software; misspellings, punctuation errors, omitted words or dictation variances may occur. BETZAIDA OBRIEN PA-C 10/01/2021 1:17 PM Primary care physician: LORIE CASTANON MD Extended Emergency Contact Information Primary Emergency Contact: Vaishali Cotter Mobile Relation: Spouse Preferred language: [place]i Social Media Content Specialist needed? No Secondary Emergency Contact: Tata Delgadillo Mobile Relation: Daughter Preferred language: [place]i Social Media Content Specialist needed? No The patient was seen and examined separately from the Advanced Provider. I reviewed the chart and agree with the orders and Assessment / Plan as documented. GEN Tired, Speaking in complete sentences HEENT PERRLA, MMM CHEST Dec BS in the bases, no wheezes or crackles CVS RRR, no MRG Abd S, NT, nl BS Ext tr edema Psych Flat affect, nl mood Neuro CNII-XII grossly intact 66-year-old male status post colostomy reversal, diet per surgery support appreciated. E REPORT DEVELOPER E REPORT DEVELOPER E REPORT DEVELOPER * Tiffani Moreno MD - 10/01/2021 11:46 AM CST POD # 9 No complaints, continues with loose bowel movements but improving Filed Vitals: 10/01/21 0057 10/01/21 0324 10/01/21 0715 10/01/21 1119 BP: 114/54 136/65 116/58 107/62 Pulse: 71 77 60 70 Resp: 18 12 18 20 Temp: 98.7 ??F (37.1 ??C) 98.9 ??F (37.2 ??C) 97.8 ??F (36.6 ??C) 97.5 ??F (36.4 ??C) TempSrc: Tympanic Tympanic Temporal Temporal SpO2: 94% 95% 97% 100% Weight: 73.3 kg (161 lb 9.6 oz) Height: Intake/Output Summary (Last 24 hours) at 10/01/2021 1147 Last data filed at 10/01/2021 1119 Gross per 24 hour Intake 2368 ml Output 2200 ml Net 168 ml Abdomen soft, honeycomb dressings in place, JITENDRA drain serosanguinous drainage CBC Lab Results Component Value Date/Time WBC 5.6 10/01/2021 06:20 AM Lab Results Component Value Date/Time RBC 4.03 (L) 10/01/2021 06:20 AM Lab Results Component Value Date/Time HGB 12.8 (L) 10/01/2021 06:20 AM Lab Results Component Value Date/Time HCT 38.9 (L) 10/01/2021 06:20 AM BMP Lab Results Component Value Date/Time CO2 30.0 10/01/2021 06:20 AM Lab Results Component Value Date/Time CA 8.5 10/01/2021 06:20 AM Lab Results Component Value Date/Time CL 106 10/01/2021 06:20 AM Lab Results Component Value Date/Time CR 0.73 10/01/2021 06:20 AM Lab Results Component Value Date/Time GLU 107 (H) 10/01/2021 06:20 AM Lab Results Component Value Date/Time NA 139 10/01/2021 06:20 AM Lab Results Component Value Date/Time K 4.5 10/01/2021 06:20 AM Lab Results Component Value Date/Time BUN 2 (L) 10/01/2021 06:20 AM KUB- almost completely resolved ileus Stool for C diff negative A) Doing well s/p colostomy reversal P) Advance regular diet Possible D/C in am GABRIELLE E REPORT DEVELOPER * Ketty Palacios RN - 10/01/2021 10:11 AM CST Problem: Reduced risk for falls/injury Goal: Reduced Risk for Falls/Injury Outcome: Progressing Problem: Discharge Planning Goal: Knowledge of discharge instructions Outcome: Progressing Problem: Body Image - Altered Goal: Acceptance of altered body image Outcome: Progressing Problem: Bowel Function - Altered Goal: Bowel elimination within specified parameters Outcome: Progressing Problem: Deep Venous Thrombosis - Risk of Goal: Absence of deep venous thrombosis Outcome: Progressing Problem: Infection - Risk of, Surgical Site Infection Goal: Absence of surgical site infection Outcome: Progressing Problem: Pain - Acute Goal: Reduced pain sensation Outcome: Progressing Problem: Urinary Elimination - Impaired Goal: Urinary elimination within specified parameters Outcome: Progressing Problem: Skin integrity, Impaired-wound Goal: Evidence of wound healing Outcome: Progressing E REPORT DEVELOPER * Delilah Schultz PA-C - 09/30/2021 11:31 AM CST Hospitalist Service Progress Note Assessment / Plan: Patient Active Problem List Diagnosis ??? Cervical stenosis of spinal canal ??? H/O nicotine dependence ??? Hyperlipidemia ??? RANDY on CPAP ??? Pharyngoesophageal dysphagia ??? Bowel perforation (CMS/HCC) ??? Perforated diverticulum ??? Status post Neel procedure (CMS/HCC) ??? S/P laparoscopic procedure S/p colostomy reversal: Presented for planned colostomy reversal??09/22??after Hudson's procedure for perforated diverticulitis Postop management per general surgery Pain control, monitor for toxicity N.p.o. per general surgery Zosyn per general surgery Await bowel function return Antiemetics PT/OT VTE prophylaxis per general surgery with Lovenox 09/25 significant NG tube output overnight less this a.m. multiple BMs this a.m. Adequate hydration 09/26 Tolerating CLD. Mild distension multiple bowel movements. 09/27 No distension, having BM's 09/29 No drainage per NGT, KUB and labs pending. 09/30: Advance to Full Liquid diet per Surgery, KUB improved, D/C Zosyn with diarrhea Diarrhea Pt with loose stools since 09/29 Some mild abdominal cramping Will D/C Zosyn Check stool for C. Diff per surgery ?? A.Fib RVR Converted back to NSR Discussed with Cardiology 30 day event monitor & ECHO recommended. Will continue BB. Continue Telemetry ?? Hypokalemia Due to NPO status, GI loss Replace and monitor ?? Hyperlipidemia: Statin ?? RANDY: CPAP nightly ?? VTE prophylaxis with Lovenox CODE STATUS full code Chief Complaint : S/p Colostomy reversal Subjective: Mr. Cotter was seen and examined at bedside this morning. He is feeling fair and up ambulating in the room. He has had several loose stools overnight. He is tolerating the clear liquid diet except forthe loose stools. He denies any chest pain, shortness of breath, nausea, vomiting, or abdominal pain. Allergies Allergen Reactions ??? Morphine Itching Objective: Filed Vitals: 09/29/21 1500 09/29/21200209/30/21 0404 09/30/21 0730 BP: 137/71 135/62 129/73 130/66 Pulse: 77 71 67 70 Resp: 18 18 18 Temp: 97.5 ??F (36.4 ??C) 98.7 ??F (37.1 ??C) 96.5 ??F (35.8 ??C) 97.2 ??F (36.2 ??C) TempSrc: Temporal Tympanic Tympanic Tympanic SpO2: 98% 95% 94% 95% Weight: 74.2 kg (163 lb 9.3 oz) Height: Physical Exam: General: NAD Eyes: EOMI, PERRLA ENT: MMM Lungs: Dec BS in the bases, No wheezes, No crackles Cardiovascular: Regular rate rhythm, S1 and S2 normal, No murmurs, Abdomen: S, appropriately tender, no rebound/guarding. BS present. + wound vac Extremities: Tr edema. Neurological: Tired, CN II-XII grossly intact Psych: Flat affect LAB: Recent Labs Lab 09/24/21 0608 09/25/21 0640 09/27/21 0827 09/28/21 0911 09/28/21 1850 09/29/21 1236 09/30/21 0740 NA 142 144 142 142 -- 141 140 K 4.0 4.4 3.5 2.7* 3.2* 3.7 4.6 CL 106 109* 104 103 -- 105 105 CO2 24.5 25.6 30.4 31.3 -- 30.5 27.8 AGAP 11.5 9.4 7.6 7.7 -- 5.5 7.2 BUN 12 11 5* 3* -- 3* 2* CR 0.79 0.74 0.78 0.82 -- 0.73 0.70 BUNCREATININ 15.2 14.9 6.4 3.7* -- 4.1* 2.9* GFRNON >90 >90 >90 >90 -- >90 >90 GFR >90 >90 >90 >90 -- >90 >90 GLU 98 104* 140* 115* -- 115* 104* CA 8.4* 8.5 8.6 8.5 -- 8.4* 8.8 Recent Labs Lab 09/24/21 0608 09/25/21 0640 09/27/21 0827 09/28/21 0911 09/29/21 1236 09/30/21 0740 WBC 9.2 8.7 7.0 6.1 6.5 5.8 RBC 4.13* 4.11* 4.13* 3.92* 3.91* 3.92* HGB 13.4* 13.2* 13.4* 12.6* 12.6* 12.6* HCT 39.8* 39.9* 39.5* 36.8* 37.4* 37.3* MCV 96.4* 97.1* 95.6 93.9 95.7 95.2 MCH 32.4* 32.1* 32.4* 32.1* 32.2* 32.1* MCHC 33.7 33.1 33.9 34.2 33.7 33.8 PLT 233 229 267 268 282 312 RDW 13.0 13.1 13.2 13.0 13.2 13.2 MPV 10.4 10.5 11.6 10.3 9.9 10.6 IMAGING: XR ABD KUB Result Date: 09/27/2021 IMAGING STUDIES: XR ABD KUB DATE: 09/27/2021 2:22 PM CLINICAL HISTORY: abd gastric output,abd swelling . . COMPARISON STUDIES: No previous available. FINDINGS IMPRESSION : CHEST: 1. The cardiac configuration is normal. Lung bases are clear, within the [id number]. ABDOMEN: 1. No free air below the diaphragm. 2. Numerous dilated loops of small bowel either secondary to ileus or distal small bowel obstruction 3. Surgical changes right upper quadrant and left lower quadrant. Drain in the pelvis. 4. Degenerative changes of the lower lumbar spineand hips. Ordered By: MARGARITA SLOAN Interpreted By: Moncho Cheng, 09/27/2021 4:08 PM XR CHEST PORTABLE Result Date: 09/24/2021 IMAGING STUDIES: XR CHEST PORTABLE EXAM DATE/TIME: 09/24/2021 3:09 PM CLINICAL HISTORY: Confirmation of Gastric Tube Placement. . . COMPARISON STUDIES: No previous available. FINDINGS AND IMPRESSION: CHEST: 1. The cardiomediastinal silhouette is not enlarged. Mild atherosclerotic aorta 2. The lungs are well expanded and clear. 3. Nasogastric tube coursing along the expected location of the cervical os with its tip at the expected location of the fundus of the stomach 4.No significant pleural effusion, no pneumothorax. 5. Degenerative changes of the spine and shoulders. Status post anterior cervical fusion. 6. Distended loops of bowel noted at the margin of the [id number] Ordered By: MARGARITA SLOAN Interpreted By: Moncho Cheng, 09/24/2021 3:23 PM EKG: Results for orders placed or performed during the hospital encounter of 09/22/21 ECG 12 lead Narrative [facility] Test Date: 2021-09-24 Pat Name: MANDIE COTTER Department: Room: 109 Gender: Male Laster Hand: : 1955 Requested By: PORSCHE LORD Order Number: [id number] Reading MD: Toño Lovett Measurements Intervals [place] Rate: 93 P: 30 OH: 136 QRS: 13 QRSD: 98 T: 53 QT: 353 QTc: 439 Interpretive Statements SINUS RHYTHM Compared to ECG 03/18/2021 10:08:00 T-wave abnormality no longer present E REPORT DEVELOPER ECG 12 lead Narrative [facility] Test Date: 2021-09-26 Pat Name: MANDIE COTTER Department: Room: 1091 Gender: Male Laster Hand: : 1955 Requested By: LACEY BARKLEY Order Number: [id number] Reading MD: Toño Lovett Measurements Intervals [place] Rate: 127 P: OH: 0 QRS: 9 QRSD: 91 T: 32 QT: 306 QTc: 445 Interpretive Statements ATRIAL FIBRILLATION WITH RAPID VENTRICULAR RESPONSE WITH ABERRANT CONDUCTION OR VENTRICULAR PREMATURE COMPLEXES NONSPECIFIC ST & T-WAVE ABNORMALITY ABNORMAL RHYTHM ECG Compared to ECG 09/24/2021 12:41:26 Ventricular premature complex(es) now present Aberrant conduction of supraventricular beat(s) now present T-wave abnormality now present Sinus rhythm no longer present E REPORT DEVELOPER ECG 12 lead Narrative [facility] Test Date: 2021-09-27 Pat Name: MANDIE COTTER Department: Room: 1091 Gender: Male Laster Hand: : 1955 Requested By: LACEY BARKLEY Order Number: [id number] Reading MD: Ben Diego Measurements Intervals [place] Rate: 67 P: 5 OH: 111 QRS: 32 QRSD: 101 T: 46 QT: 392 QTc: 416 Interpretive Statements SINUS RHYTHM WITH SHORT OH INTERVAL NONSPECIFIC ST & T-WAVE ABNORMALITY Compared to ECG 09/26/2021 12:44:09 Short OH interval now present Atrial fibrillation no longer present Aberrant conduction of supraventricular beat(s) no longer present Ventricular premature complex(es) no longer present T-wave abnormality still present E REPORT DEVELOPER Delilah Schultz PA-C 09/30/2021 11:31 AM Inpatient Cosigned by Aneesh Mesa MD at 09/30/2021 1:47 PM OBIEE REPORT DEVELOPER E REPORT DEVELOPER E REPORT DEVELOPER * Tiffani Moreno MD - 09/30/2021 10:55 AM CST General Surgery Progress Notes POD # 8 Cc: c/o Frequent loose Diarrheal stools Filed Vitals: 09/29/21 1500 09/29/21200209/30/21 0404 09/30/21 0730 BP: 137/71 135/62 129/73 130/66 Pulse: 77 71 67 70 Resp: 22 18 18 18 Temp: 97.5 ??F (36.4 ??C) 98.7 ??F (37.1 ??C) 96.5 ??F (35.8 ??C) 97.2 ??F (36.2 ??C) TempSrc: Temporal Tympanic Tympanic Tympanic SpO2: 98% 95% 94% 95% Weight: 74.2 kg (163 lb 9.3 oz) Height: Intake/Output Summary (Last 24 hours) at 09/30/2021 1056 Last data filed at 09/30/2021 0935 Gross per 24 hour Intake 3481 ml Output 993 ml Net 2488 ml Abdomen: Soft, no tenderness , guarding , rebound CBC Lab Results Component Value Date/Time WBC 5.8 09/30/2021 07:40 AM Lab Results Component Value Date/Time RBC 3.92 (L) 09/30/2021 07:40 AM Lab Results Component Value Date/Time HGB 12.6 (L) 09/30/2021 07:40 AM Lab Results Component Value Date/Time HCT 37.3 (L) 09/30/2021 07:40 AM BMP Lab Results Component Value Date/Time CO2 27.8 09/30/2021 07:40 AM Lab Results Component Value Date/Time CA 8.8 09/30/2021 07:40 AM Lab Results Component Value Date/Time CL 105 09/30/2021 07:40 AM Lab Results Component Value Date/Time CR 0.70 09/30/2021 07:40 AM Lab Results Component Value Date/Time GLU 104 (H) 09/30/2021 07:40 AM Lab Results Component Value Date/Time NA 140 09/30/2021 07:40 AM Lab Results Component Value Date/Time K 4.6 09/30/2021 07:40 AM Lab Results Component Value Date/Time BUN 2 (L) 09/30/2021 07:40 AM A) Ileus resolving, hypokalemia corrected P) Advance full liquid Check stool for c diff GABRIELLE E REPORT DEVELOPER * Ketty Palacios RN - 09/30/2021 10:17 AM CST Problem: Reduced risk for falls/injury Goal: Reduced Risk for Falls/Injury Outcome: Progressing Problem: Discharge Planning Goal: Knowledge of discharge instructions Outcome: Progressing Problem: Body Image - Altered Goal: Acceptance of altered body image Outcome: Progressing Problem: Bowel Function - Altered Goal: Bowel elimination within specified parameters Outcome: Progressing Problem: Deep Venous Thrombosis - Risk of Goal: Absence of deep venous thrombosis Outcome: Progressing Problem: Infection - Risk of, Surgical Site Infection Goal: Absence of surgical site infection Outcome: Progressing Problem: Pain - Acute Goal: Reduced pain sensation Outcome: Progressing Problem: Urinary Elimination - Impaired Goal: Urinary elimination within specified parameters Outcome: Progressing Problem: Skin integrity, Impaired-wound Goal: Evidence of wound healing Outcome: Progressing E REPORT DEVELOPER * Jesi Torres RN - 09/30/2021 5:24 AM CST Problem: Reduced risk for falls/injury Goal: Reduced Risk for Falls/Injury Outcome: Progressing Problem: Discharge Planning Goal: Knowledge of discharge instructions Outcome: Progressing Problem: Body Image - Altered Goal: Acceptance of altered body image Outcome: Progressing Problem: Bowel Function - Altered Goal: Bowel elimination within specified parameters Outcome: Progressing Problem: Deep Venous Thrombosis - Risk of Goal: Absence of deep venous thrombosis Outcome: Progressing Problem: Infection - Risk of, Surgical Site Infection Goal: Absence of surgical site infection Outcome: Progressing Problem: Pain - Acute Goal: Reduced pain sensation Outcome: Progressing Problem: Urinary Elimination - Impaired Goal: Urinary elimination within specified parameters Outcome: Progressing Problem: Skin integrity, Impaired-wound Goal: Evidence of wound healing Outcome: Progressing E REPORT DEVELOPER * Annette Jorge RN - 09/29/2021 2:42 PM CST Problem: Reduced risk for falls/injury Goal: Reduced Risk for Falls/Injury Outcome: Progressing Problem: Discharge Planning Goal: Knowledge of discharge instructions Outcome: Progressing Problem: Body Image - Altered Goal: Acceptance of altered body image Outcome: Progressing Problem: Bowel Function - Altered Goal: Bowel elimination within specified parameters Outcome: Progressing Problem: Infection - Risk of, Surgical Site Infection Goal: Absence of surgical site infection Outcome: Progressing Problem: Pain - Acute Goal: Reduced pain sensation Outcome: Progressing Problem: Urinary Elimination - Impaired Goal: Urinary elimination within specified parameters Outcome: Progressing Problem: Skin integrity, Impaired-wound Goal: Evidence of wound healing Outcome: Progressing Problem: Deep Venous Thrombosis - Risk of Goal: Absence of deep venous thrombosis Outcome: Met This Shift E REPORT DEVELOPER * Tiffani Moreno MD - 09/29/2021 12:53 PM CST General Surgery Progress Note POD #7 No complaints, continues to have BM's, Minimal output from NG tube Filed Vitals: 09/29/21 0421 09/29/21 0600 09/29/21 0700 09/29/21 1100 BP: 135/49 129/74 125/74 Pulse: 78 71 Resp: 18 22 22 Temp: 99.2 ??F (37.3 ??C) 98.1 ??F (36.7 ??C) 97.1 ??F (36.2 ??C) TempSrc: Oral Temporal Temporal SpO2: 95% 93% 98% Weight: 74.7 kg (164 lb 10.9 oz) Height: Intake/Output Summary (Last 24 hours) at 09/29/2021 1255 Last data filed at 09/29/2021 1251 Gross per 24 hour Intake 50 ml Output 1210 ml Net -1160 ml Abd: Soft, no tenderness, guarding or rebound CBC Lab Results Component Value Date/Time WBC 6.5 09/29/2021 12:36 PM Lab Results Component Value Date/Time RBC 3.91 (L) 09/29/2021 12:36 PM Lab Results Component Value Date/Time HGB 12.6 (L) 09/29/2021 12:36 PM Lab Results Component Value Date/Time HCT 37.4 (L) 09/29/2021 12:36 PM BMP Lab Results Component Value Date/Time CO2 31.3 09/28/2021 09:11 AM Lab Results Component Value Date/Time CA 8.5 09/28/2021 09:11 AM Lab Results Component Value Date/Time CL 103 09/28/2021 09:11 AM Lab Results Component Value Date/Time CR 0.82 09/28/2021 09:11 AM Lab Results Component Value Date/Time GLU 115 (H) 09/28/2021 09:11 AM Lab Results Component Value Date/Time NA 142 09/28/2021 09:11 AM Lab Results Component Value Date/Time K 3.2 (L) 09/28/2021 06:50 PM Lab Results Component Value Date/Time BUN 3 (L) 09/28/2021 09:11 AM KUB-still consistent with ileus ( official report pending) A) S/p colostomy reversal Clinically resolving post op ileus K 3.2 P) D/c NG tube Clear liquids GABRIELLE E REPORT DEVELOPER * Evie Antony RN - 09/29/2021 12:15 PM CST INTERDISCIPLINARY CARE CONFERENCE: TEAM ATTENDANCE: CASE MANAGEMENT, UR, NURSING, PT, OT, CARDIOPULMONARY, MANAGER SITE, HOSPITALIST HOME HEALTH,PASTORAL CARE, PHARMACY Meeting held at 1100. Nursing reports ng to have no output at this time. KUB done this AM. E REPORT DEVELOPER * Aneesh Mesa MD - 09/29/2021 11:51 AM CST Hospitalist Service Progress Note Assessment / Plan: Patient Active Problem List Diagnosis ??? Cervical stenosis of spinal canal ??? H/O nicotine dependence ??? Hyperlipidemia ??? RANDY on CPAP ??? Pharyngoesophageal dysphagia ??? Bowel perforation (CMS/HCC) ??? Perforated diverticulum ??? Status post Neel procedure (CMS/HCC) ??? S/P laparoscopic procedure S/p colostomy reversal: Presented for planned colostomy reversal??09/22??after Hudson's procedure for perforated diverticulitis Postop management per general surgery Pain control, monitor for toxicity N.p.o. per general surgery Zosyn per general surgery Await bowel function return Antiemetics PT/OT VTE prophylaxis per general surgery with Lovenox 09/25 significant NG tube output overnight less this a.m. multiple BMs this a.m. Adequate hydration 09/26 Tolerating CLD. Mild distension multiple bowel movements. 09/27 No distension, having BM's 09/29 No drainage per NGT, KUB and labs pending. ?? A.Fib RVR Converted back to NSR Discussed with Cardiology 30 day event monitor & ECHO recommended. Will continue BB. ?? Hypokalemia Due to NPO status, GI loss ?? Hyperlipidemia: Statin ?? RANDY: CPAP nightly ?? VTE prophylaxis with Lovenox CODE STATUS full code Chief Complaint : S/p Colostomy reversal Subjective: 66-year-old male with w weakness 2/2 Colostomy reversal. No NGT output over past 12h. Denies F/C/CP/SOB/N/V/D. Allergies Allergen Reactions ??? Morphine Itching Objective: Filed Vitals: 09/29/21 0421 09/29/21 0600 09/29/21 0700 09/29/21 1100 BP: 135/49 129/74 125/74 Pulse: 78 71 Resp: Temp: 99.2 ??F (37.3 ??C) 98.1 ??F (36.7 ??C) 97.1 ??F (36.2 ??C) TempSrc: Oral Temporal Temporal SpO2: 95% 93% 98% Weight: 74.7 kg (164 lb 10.9 oz) Height: Physical Exam: General: Laying in bed, NAD. Eyes: EOMI, PERRLA ENT: MMM Lungs: Dec BS in the bases, No wheezes, No crackles Cardiovascular: Regular rate rhythm, S1 and S2 normal, No murmurs, Abdomen: S, appropriately tender, no rebound/guarding. BS present. Extremities: Tr edema. Neurological: Tired, CN II-XII grossly intact Psych: Flat affect LAB: Recent Labs Lab 09/23/21 0545 09/24/21 0608 09/25/21 0640 09/27/21 0827 09/28/21 0911 09/28/21 1850 NA 141 142 144 142 142 -- K 4.1 4.0 4.4 3.5 2.7* 3.2* CL 106 106 109* 104 103 -- CO2 26.5 24.5 25.6 30.4 31.3 -- AGAP 8.5 11.5 9.4 7.6 7.7 -- BUN 10 12 11 5* 3* -- CR 0.97 0.79 0.74 0.78 0.82 -- BUNCREATININ 10.3 15.2 14.9 6.4 3.7* -- GFRNON 80* >90 >90 >90 >90 -- GFR >90 >90 >90 >90 >90 -- GLU 102* 98 104* 140* 115* -- CA 8.0* 8.4* 8.5 8.6 8.5 -- Recent Labs Lab 09/23/21 0545 09/24/21 0608 09/25/21 0640 09/27/21 0827 09/28/21 0911 WBC 8.1 9.2 8.7 7.0 6.1 RBC 4.03* 4.13* 4.11* 4.13* 3.92* HGB 12.8* 13.4* 13.2* 13.4* 12.6* HCT 38.1* 39.8* 39.9* 39.5* 36.8* MCV 94.5 96.4* 97.1* 95.6 93.9 MCH 31.8* 32.4* 32.1* 32.4* 32.1* MCHC 33.6 33.7 33.1 33.9 34.2 PLT 221 233 229 267 268 RDW 12.9 13.0 13.1 13.2 13.0 MPV 10.6 10.4 10.5 11.6 10.3 No results for input(s): CPK in the last 168 hours. No results for input(s): INR, PTT in the last 168 hours. Invalid input(s): ABG No results for input(s): TROP, TROPIWB, CPK in the last 168 hours. Invalid input(s): CK-MB No results for input(s): PH, PCO2, PO2, [id number], BICARBWB, BASEDEFICIT, BASEEXCESS in the [id number] hours. IMAGING: XR ABD KUB Result Date: 09/27/2021 IMAGING STUDIES: XR ABD KUB DATE: 09/27/2021 2:22 PM CLINICAL HISTORY: abd gastric output,abd swelling . . COMPARISON STUDIES: No previous available. FINDINGS IMPRESSION : CHEST: 1. The cardiac configuration is normal. Lung bases are clear, within the [id number]. ABDOMEN: 1. No free air below the diaphragm. 2. Numerous dilated loops of small bowel either secondary to ileus or distal small bowel obstruction 3. Surgical changes right upper quadrant and left lower quadrant. Drain in the pelvis. 4. Degenerative changes of the lower lumbar spineand hips. Ordered By: MARGARITA SLOAN Interpreted By: Moncho Cheng, 09/27/2021 4:08 PM XR CHEST PORTABLE Result Date: 09/24/2021 IMAGING STUDIES: XR CHEST PORTABLE EXAM DATE/TIME: 09/24/2021 3:09 PM CLINICAL HISTORY: Confirmation of Gastric Tube Placement. . . COMPARISON STUDIES: No previous available. FINDINGS AND IMPRESSION: CHEST: 1. The cardiomediastinal silhouette is not enlarged. Mild atherosclerotic aorta 2. The lungs are well expanded and clear. 3. Nasogastric tube coursing along the expected location of the cervical os with its tip at the expected location of the fundus of the stomach 4.No significant pleural effusion, no pneumothorax. 5. Degenerative changes of the spine and shoulders. Status post anterior cervical fusion. 6. Distended loops of bowel noted at the margin of the [id number] Ordered By: MARGARITA SLOAN Interpreted By: Moncho Cheng, 09/24/2021 3:23 PM EKG: Results for orders placed or performed during the hospital encounter of 09/22/21 ECG 12 lead Narrative [facility] Test Date: 2021-09-24 Pat Name: MANDIE COTTER Department: Room: 109 Gender: Male Laster Hand: : 1955 Requested By: PORSCHE LORD Order Number: [id number] Reading MD: Toño Lovett Measurements Intervals [place] Rate: 93 P: 30 OH: 136 QRS: 13 QRSD: 98 T: 53 QT: 353 QTc: 439 Interpretive Statements SINUS RHYTHM Compared to ECG 03/18/2021 10:08:00 T-wave abnormality no longer present E REPORT DEVELOPER ECG 12 lead Narrative [facility] Test Date: 2021-09-26 Pat Name: MANDIE COTTER Department: Room: 1091 Gender: Male Laster Hand: : 1955 Requested By: LACEY BARKLEY Order Number: [id number] Reading MD: Toño Lovett Measurements Intervals [place] Rate: 127 P: OH: 0 QRS: 9 QRSD: 91 T: 32 QT: 306 QTc: 445 Interpretive Statements ATRIAL FIBRILLATION WITH RAPID VENTRICULAR RESPONSE WITH ABERRANT CONDUCTION OR VENTRICULAR PREMATURE COMPLEXES NONSPECIFIC ST & T-WAVE ABNORMALITY ABNORMAL RHYTHM ECG Compared to ECG 09/24/2021 12:41:26 Ventricular premature complex(es) now present Aberrant conduction of supraventricular beat(s) now present T-wave abnormality now present Sinus rhythm no longer present E REPORT DEVELOPER ECG 12 lead Narrative [facility] Test Date: 2021-09-27 Pat Name: MANDIE [facility] Department: Room: 1091 Gender: Male Laster Hand: : 1955 Requested By: LACEY BARKLEY Order Number: [id number] Reading MD: Ben Diego Measurements Intervals [place] Rate: 67 P: 5 OH: 111 QRS: 32 QRSD: 101 T: 46 QT: 392 QTc: 416 Interpretive Statements SINUS RHYTHM WITH SHORT OH INTERVAL NONSPECIFIC ST & T-WAVE ABNORMALITY Compared to ECG 09/26/2021 12:44:09 Short OH interval now present Atrial fibrillation no longer present Aberrant conduction of supraventricular beat(s) no longer present Ventricular premature complex(es) no longer present T-wave abnormality still present E REPORT DEVELOPER ANEESH MESA MD 09/29/2021 11:52 AM Inpatient E REPORT DEVELOPER * Evie Antony RN - 09/28/2021 2:42 PM CST INTERDISCIPLINARY CARE CONFERENCE: TEAM ATTENDANCE: CASE MANAGEMENT, UR, NURSING, PT, OT, CARDIOPULMONARY, MANAGER SITE, HOSPITALIST HOME HEALTH,PASTORAL CARE, PHARMACY Meeting held at 1100. Patient remains NPO. E REPORT DEVELOPER * Tiffani Moreno MD - 09/28/2021 1:45 PM CST General Surgery Progress Note No complaints, Positive flatus and BM's NG tube in place Filed Vitals: 09/27/216 09/28/21 0250 09/28/21 0925 09/28/21 1115 BP: 132/77 135/68 138/74 Pulse: 72 73 61 Resp: 18 16 18 Temp: 99 ??F (37.2 ??C) 97.7 ??F (36.5 ??C) 97.5 ??F (36.4 ??C) TempSrc: Temporal Tympanic Tympanic Tympanic SpO2: 100% 100% 100% 100% Weight: 74.6 kg (164 lb 7.4 oz) Height: Intake/Output Summary (Last 24 hours) at 09/28/2021 1347 Last data filed at 09/28/2021 1115 Gross per 24 hour Intake 800 ml Output 1850 ml Net -1050 ml ABd: Soft , no tenderness, guarding , rebound , hypoactive bs CBC Lab Results Component Value Date/Time WBC 6.1 09/28/2021 09:11 AM Lab Results Component Value Date/Time RBC 3.92 (L) 09/28/2021 09:11 AM Lab Results Component Value Date/Time HGB 12.6 (L) 09/28/2021 09:11 AM Lab Results Component Value Date/Time HCT 36.8 (L) 09/28/2021 09:11 AM BMP Lab Results Component Value Date/Time CO2 31.3 09/28/2021 09:11 AM Lab Results Component Value Date/Time CA 8.5 09/28/2021 09:11 AM Lab Results Component Value Date/Time CL 103 09/28/2021 09:11 AM Lab Results Component Value Date/Time CR 0.82 09/28/2021 09:11 AM Lab Results Component Value Date/Time GLU 115 (H) 09/28/2021 09:11 AM Lab Results Component Value Date/Time NA 142 09/28/2021 09:11 AM Lab Results Component Value Date/Time K 2.7 (LL) 09/28/2021 09:11 AM Lab Results Component Value Date/Time BUN 3 (L) 09/28/2021 09:11 AM KUB consistent with Ileus vs Distal SBO Path - reviewed A) S/p Colostomy reversal , post op ileus possibly secondary to hypokalemia with K 2.9 P) NG tube Ice chips Correct K As per hospitalist KUB in am GABRIELLE E REPORT DEVELOPER * Lacey Barkley MD - 09/28/2021 10:58 AM CST Hospital Daily Progress Note History No sob,chest pain, n/v or abdominal pain. Physical Exam Filed Vitals: 09/27/21 1725 09/27/21 2036 09/28/21 0250 09/28/21 0925 BP: 138/70 132/77 135/68 138/74 Pulse: 113 72 73 61 Resp: 18 18 16 18 Temp: 98.3 ??F (36.8 ??C) 99 ??F (37.2 ??C) 97.7 ??F (36.5 ??C) 97.5 ??F (36.4 ??C) TempSrc: Temporal Temporal Tympanic Tympanic SpO2: 100% 100% 100% 100% Weight: 74.6 kg (164 lb 7.4 oz) Height: Intake/Output Summary (Last 24 hours) at 09/28/2021 1058 Last data filed at 09/28/2021 0928 Gross per 24 hour Intake 800 ml Output 2160 ml Net -1360 ml Physical Exam Constitutional: Appearance: Normal appearance. HENT: Head: Normocephalic and atraumatic. Nose: Comments: NG tube Cardiovascular: Rate and Rhythm: Normal rate and regular rhythm. Pulmonary: Effort: Pulmonary effort is normal. Breath sounds: Normal breath sounds. Abdominal: General: Bowel sounds are normal. Palpations: Abdomen is soft. Comments: Slight distention Skin: General: Skin is warm and dry. Neurological: General: No focal deficit present. Mental Status: He is alert and oriented to person, place, and time. Lab Results Component Value Date NA 142 09/28/2021 K 2.7 (LL) 09/28/2021 CL 103 09/28/2021 CO2 31.3 09/28/2021 AGAP 7.7 09/28/2021 BUN 3 (L) 09/28/2021 CR 0.82 09/28/2021 BUNCREATININ 3.7 (L) 09/28/2021 GFRNON >90 09/28/2021 GFR >90 09/28/2021 GLU 115 (H) 09/28/2021 CA 8.5 09/28/2021 Lab Results Component Value Date WBC 6.1 09/28/2021 HGB 12.6 (L) 09/28/2021 PLT 268 09/28/2021 Lab Results Component Value Date CHOL 137 07/07/2021 TRI 95 07/07/2021 HDL 52 07/07/2021 TP 6.4 09/28/2021 ALB 2.7 (L) 09/28/2021 ALT 29 09/28/2021 HGBA1C 5.6 02/15/2019 TSH 1.649 07/07/2021 Cultures: Blood: No results found for this visit on 09/22/21 (from the past 168 hour(s)). Urine: No results found for this visit on 09/22/21 (from the past 168 hour(s)). Respiratory: XR ABD KUB Result Date: 09/27/2021 FINDINGS IMPRESSION : CHEST: 1. The cardiac configuration is normal. Lung bases are clear, within the [id number]. ABDOMEN: 1. No free air below the diaphragm. 2. Numerous dilated loops of small bowel either secondary to ileus or distal small bowel obstruction 3. Surgical changes right upper quadrant and left lower quadrant. Drain in the pelvis. 4. Degenerative changes of the lower lumbar spineand hips. Ordered By: MARGARITA SLOAN Interpreted By: Moncho Cheng, 09/27/2021 4:08 PM Assessment S/p colostomy reversal: Presented for planned colostomy reversal 09/22 after Hudson's procedure for perforated diverticulitis Postop management per general surgery Pain control, monitor for toxicity N.p.o. per general surgery Zosyn per general surgery Await bowel function return Antiemetics PT/OT VTE prophylaxis per general surgery with Lovenox 09/25 significant NG tube output overnight less this a.m. multiple BMs this a.m. Adequate hydration 09/26 Tolerating CLD. Mild distension multiple bowel movements. 09/27 No distension, having BM's 09/28 Continues to have significant output over nite 700 ml. Benign abdominal exam. A.Fib RVR Converted back to NSR Discussed with Cardiology 30 day event monitor & ECHO recommended. Will continue BB. Hypokalemia Due to NPO status, GI loss ?? Hyperlipidemia: Statin ?? RANDY: CPAP nightly ? VTE prophylaxis with Lovenox CODE STATUS full code Plan NPO IV Reglan KCL replacement LACEY BARKLEY MD E REPORT DEVELOPER * Gretel Aponte RN - 09/27/2021 10:35 PM CST Problem: Reduced risk for falls/injury Goal: Reduced Risk for Falls/Injury Outcome: Progressing Problem: Discharge Planning Goal: Knowledge of discharge instructions Outcome: Progressing Problem: Body Image - Altered Goal: Acceptance of altered body image Outcome: Progressing Problem: Bowel Function - Altered Goal: Bowel elimination within specified parameters Outcome: Progressing Problem: Deep Venous Thrombosis - Risk of Goal: Absence of deep venous thrombosis Outcome: Progressing Problem: Infection - Risk of, Surgical Site Infection Goal: Absence of surgical site infection Outcome: Progressing Problem: Pain - Acute Goal: Reduced pain sensation Outcome: Progressing Problem: Urinary Elimination - Impaired Goal: Urinary elimination within specified parameters Outcome: Progressing Problem: Skin integrity, Impaired-wound Goal: Evidence of wound healing Outcome: Progressing E REPORT DEVELOPER * Margarita Sloan MD - 09/27/2021 2:35 PM CST Mandie Cotter 09/27/2021 Subjective Patient does have an NG tube which is clamped and he has been tolerating a clear liquid diet and NGtube placed back to suction after about 2 hours of meals/meds. This morning, there was no output 2 hours after breakfast however in my presence, he was placed back to suction after lunch and notes about 500 mL of bilious output. I did order a KUB which did show an ileus. Patient however is having multiple bowel movements, passing flatus, denies any nausea or vomiting even with NG tube clamped. He is slightly bloated. WBC normal, electrolytes within normal limits. No further episodes of tachycardia. He has been evaluated by cardiology for A. fib with rapid ventricular rhythm. Asymptomatic. Review of Systems Constitutional: Negative. HENT: Negative. Eyes: Negative. Respiratory: Negative. Cardiovascular: Negative. Gastrointestinal: Positive for abdominal distention. Endocrine: Negative. Genitourinary: Negative. Musculoskeletal: Negative. Skin: Negative. Allergic/Immunologic: Negative. Neurological: Negative. Hematological: Negative. Psychiatric/Behavioral: Negative. Objective Vitals: Vital 24 Hour Range Most Recent Value Temperature Temp Min: 97.5 ??F (36.4 ??C) Max: 98.5 ??F (36.9 ??C) 98.1 ??F (36.7 ??C) Pulse Pulse Min: 60 Max: 106 76 Respiratory Resp Min: 18 Max: 20 18 Blood Pressure BP Min: 114/90 Max: 140/66 120/68 Pulse Oximetry SpO2 Min: 95 % Max: 100 % 100 % O2 No data recorded Intake/Output Summary (Last 24 hours) at 09/27/2021 1435 Last data filed at 09/27/2021 0900 Gross per 24 hour Intake 1820 ml Output 1128 ml Net 692 ml Physical Exam Constitutional: General: He is not in acute distress. Appearance: Normal appearance. He is well-developed. He is not ill-appearing, toxic-appearing or diaphoretic. HENT: Head: Normocephalic and atraumatic. Right Ear: External ear normal. Left Ear: External ear normal. Nose: Nose normal. Cardiovascular: Rate and Rhythm: Normal rate and regular rhythm. Heart sounds: Normal heart sounds. No murmur heard. Pulmonary: Effort: Pulmonary effort is normal. No respiratory distress. Breath sounds: Normal breath sounds. No stridor. No wheezing or rhonchi. Chest: Chest wall: No tenderness. Abdominal: General: Bowel sounds are normal. There is distension. Palpations: Abdomen is soft. There is no mass. Tenderness: There is abdominal tenderness. There is no guarding or rebound. Hernia: No hernia is present. Comments: Abdomen is soft, mildly distended, appropriately tender, bowel sounds are present but hypoactive. Easton-Srinivasan drain with a small to moderate amount of serosanguineous output. Musculoskeletal: General: Normal range of motion. Cervical back: Normal range of motion and neck supple. Skin: General: Skin is warm and dry. Neurological: Mental Status: He is alert and oriented to person, place, and time. Psychiatric: Mood and Affect: Mood normal. Labs: Recent Labs Lab 09/24/21 0608 09/25/21 0640 09/27/21 0827 WBC 9.2 8.7 7.0 RBC 4.13* 4.11* 4.13* HGB 13.4* 13.2* 13.4* HCT 39.8* 39.9* 39.5* NA 142 144 142 K 4.0 4.4 3.5 CL 106 109* 104 CO2 24.5 25.6 30.4 AGAP 11.5 9.4 7.6 BUN 12 11 5* CR 0.79 0.74 0.78 BUNCREATININ 15.2 14.9 6.4 GFRNON >90 >90 >90 GFR >90 >90 >90 GLU 98 104* 140* CA 8.4* 8.5 8.6 TP 6.6 6.7 6.7 ALB 3.2* 3.0* 3.1* TBIL 1.6* 1.2 0.9 ALKP 37* 29* 24* AST 25 25 30 ALT 27 26 24 Pertinent images and labs reviewed Radiology: Radiology Results (Last 48 hours) None Assessment: Mandie Cotter is a 66-year-old male status post laparoscopic reversal of Hudson's with an ileus although patient is having bowel movements and passing flatus without any nausea or vomiting. Plan: Place NG tube back to suction, keep n.p.o. until tomorrow when he is reevaluated. PO to IV meds for now. Continue current medical management. Continue ambulation and incentive. Margarita Sloan MD 09/27/2021 E REPORT DEVELOPER * Alissa Flores, RD - 09/27/2021 11:27 AM CST Dietitian Nutrition Assessment Mandie Cotter, 1955, 66-year-old male admitted for S/P laparoscopic procedure [Z98.890]. Nutrition Recommendations: Nutrition Diagnosis: Inadequate oral intake related to decreased ability to consume adequate nutrition as evidenced by clear liquid diet not able to consume adequate calories/protein Nutrition Intervention: Food and/or nutrient delivery To advance to low fiber when medically appropriate -will continue to send Ensure clear with meals Nutrition Prescription: Nutrition education to be provided for low fiber diet prior to discharge when diet is resumed Nutrition Monitoring and Evaluation: 1. Diet has been advanced from NPO to clear , will continue tomonitor for diet advancement to better meet est needs Past Medical History Past Medical History: Diagnosis Date ??? Arthritis ??? Cervical stenosis of spine ??? Hyperlipidemia ??? Influenza vaccine administered ??? RANDY (obstructive sleep apnea) Admit Date: 09/22/21 MST Score: 0 Referral From: Provider Order Assessment: Initial Assessment Anthropometrics: Wt Readings from Last 3 Encounters: 09/27/21 77.2 kg (170 lb 3.1 oz) 08/20/21 73 kg (161 lb) 08/18/21 73 kg (161 lb) Ht Readings from Last 1 Encounters: 09/22/21 5' 7 (1.702 m) Body mass index is 26.66 kg/m??. BMI Assessment: Normal [place] Body Weight: 148# Percent [place] Body Weight: 107% Usual Body Weight: 161# Percent Usual Body Weight: 98% Percent Weight Loss: 2% Nutrition Focused Physical Findings: no evidence of muscle or adipose tissue loss Nutrition: Current Diet Order: Diet clear liquid Appropriate Diet Comment: Patient is NPO at this time Learning needs assessed: Patient is able to understand nutritional guidelines Chewing/swallowing problems: No Food allergies/intolerances: none Cultural/Quaker food preferences: none Current diet appropriate? Yes Current intake sufficient to meet nutritional needs? No Pain affecting PO intake? N/A Estimated Nutrient Needs: Calories: 1800 kcal/day, based on 25 kcal/kg Protein: 72 gm/day, based on 1.0gm/kg Fluid:1800 ml/day, based on 25ml/kg Labs: HGB A1C Date Value Ref Range Status 02/15/2019 5.6 5.7 Final Nutrition Risk: Medium Inadequate Oral Intake Yes Unintended Weight Loss No Loss of Body Fat No Muscle Wasting No Fluid Accumulation No Reduced Geomagnetist Strength No Discharge nutrition plan: Discharge needs assessed. Will provide/update discharge instructions as needed. (See Nutrition Prescription above) ALISSA FLORES RD 09/27/21, 11:27 AM E REPORT DEVELOPER * Aliya Moreon RN - 09/27/2021 11:[address] [facility] for discharge planning @1100 with HOSPITALIST, DIRECTOR SERVICE, CM, UR, PASTORAL CARE, PHARMACY, CARDIOPULMONARY, MANAGER SITE, HH. Advance diet to clear liquid NG tube [place] to follow surgically Denies need for HH at this time. E REPORT DEVELOPER * Lacey Barkley MD - 09/27/2021 10:58 AM CST Hospital Daily Progress Note History Complains of incisional soreness Physical Exam Filed Vitals: 09/26/21 2352 09/27/21 0247 09/27/21 0409 09/27/21 0718 BP: 120/64 140/66 128/70 Pulse: 92 78 74 106 Resp: 18 20 20 18 Temp: 97.6 ??F (36.4 ??C) 97.5 ??F (36.4 ??C) 98.5 ??F (36.9 ??C) TempSrc: Tympanic Tympanic Temporal SpO2: 96% 96% 96% 100% Weight: 77.2 kg (170 lb 3.1 oz) Height: Intake/Output Summary (Last 24 hours) at 09/27/2021 1058 Last data filed at 09/27/2021 0900 Gross per 24 hour Intake 1820 ml Output 1608 ml Net 212 ml Physical Exam Constitutional: Appearance: Normal appearance. HENT: Head: Normocephalic. Cardiovascular: Rate and Rhythm: Normal rate and regular rhythm. Heart sounds: Normal heart sounds. Pulmonary: Effort: Pulmonary effort is normal. Breath sounds: Normal breath sounds. Abdominal: General: Bowel sounds are normal. Comments: Wound vac Neurological: Mental Status: He is alert. Lab Results Component Value Date NA 142 09/27/2021 K 3.5 09/27/2021 CL 104 09/27/2021 CO2 30.4 09/27/2021 AGAP 7.6 09/27/2021 BUN 5 (L) 09/27/2021 CR 0.78 09/27/2021 BUNCREATININ 6.4 09/27/2021 GFRNON >90 09/27/2021 GFR >90 09/27/2021 GLU 140 (H) 09/27/2021 CA 8.6 09/27/2021 Lab Results Component Value Date WBC 7.0 09/27/2021 HGB 13.4 (L) 09/27/2021 PLT 267 09/27/2021 Lab Results Component Value Date CHOL 137 07/07/2021 TRI 95 07/07/2021 HDL 52 07/07/2021 TP 6.7 09/27/2021 ALB 3.1 (L) 09/27/2021 ALT 24 09/27/2021 HGBA1C 5.6 02/15/2019 TSH 1.649 07/07/2021 Cultures: Blood: No results found for this visit on 09/22/21 (from the past 168 hour(s)). Urine: No results found for this visit on 09/22/21 (from the past 168 hour(s)). Respiratory: No results found. Assessment S/p colostomy reversal: Presented for planned colostomy reversal 09/22 after Hudson's procedure for perforated diverticulitis Postop management per general surgery Pain control, monitor for toxicity N.p.o. per general surgery Zosyn per general surgery Await bowel function return Antiemetics PT/OT VTE prophylaxis per general surgery with Lovenox 09/25 significant NG tube output overnight less this a.m. multiple BMs this a.m. Adequate hydration 09/26 Tolerating CLD. Mild distension multiple bowel movements. 09/27 No distension, having BM's A.Fib RVR Converted back to NSR Discussed with Cardiology 30 day event monitor & ECHO recommended. ?? Hyperlipidemia: Statin ?? RANDY: CPAP nightly ? VTE prophylaxis with Lovenox CODE STATUS full code Plan EKG Remove NGT today if approved by Surgery. LACEY BARKLEY MD E REPORT DEVELOPER * Rose Marie Starr RN - 09/26/2021 10:41 PM CST Problem: Reduced risk for falls/injury Goal: Reduced Risk for Falls/Injury Outcome: Progressing Problem: Discharge Planning Goal: Knowledge of discharge instructions Outcome: Progressing Problem: Body Image - Altered Goal: Acceptance of altered body image Outcome: Progressing Problem: Bowel Function - Altered Goal: Bowel elimination within specified parameters Outcome: Progressing Problem: Deep Venous Thrombosis - Risk of Goal: Absence of deep venous thrombosis Outcome: Progressing Problem: Infection - Risk of, Surgical Site Infection Goal: Absence of surgical site infection Outcome: Progressing Problem: Pain - Acute Goal: Reduced pain sensation Outcome: Progressing Problem: Urinary Elimination - Impaired Goal: Urinary elimination within specified parameters Outcome: Progressing Problem: Skin integrity, Impaired-wound Goal: Evidence of wound healing Outcome: Progressing E REPORT DEVELOPER * Margarita Sloan MD - 09/26/2021 2:43 PM CST Mandie Browne Amanda 09/26/2021 Subjective Passing flatus, having bowel movements, denies any nausea vomiting with clear liquid diet. Easton-Srinivasan drain has put out 80 mL of serosanguineous output since 7 AM. He did that when he moved earlier this morning he did have a left flank pain. He was in A. fib rapid ventricular rhythm earlier today but repeat heart rate was normal (IV Cardizem stopped and metoprolol 25 mg p.o. twice daily started, on telemetry). Normal WBC, afebrile. Review of Systems Constitutional: Negative. HENT: Negative. Eyes: Negative. Respiratory: Negative. Cardiovascular: A. fib Gastrointestinal: Negative. Endocrine: Negative. Genitourinary: Negative. Musculoskeletal: Negative. Skin: Negative. Allergic/Immunologic: Negative. Neurological: Negative. Hematological: Negative. Psychiatric/Behavioral: Negative. Objective Vitals: Vital 24 Hour Range Most Recent Value Temperature Temp Min: 96.6 ??F (35.9 ??C) Max: 99 ??F (37.2 ??C) 96.6 ??F (35.9 ??C) Pulse Pulse Min: 52 Max: 102 52 Respiratory Resp Min: 18 Max: 20 18 Blood Pressure BP Min: 142/88 Max: 153/56 142/88 Pulse Oximetry SpO2 Min: 96 % Max: 100 % 100 % O2 No data recorded Intake/Output Summary (Last 24 hours) at 09/26/2021 1443 Last data filed at 09/26/2021 0900 Gross per 24 hour Intake 1960 ml Output 1226 ml Net 734 ml Physical Exam Constitutional: General: He is not in acute distress. Appearance: Normal appearance. He is well-developed. He is not ill-appearing, toxic-appearing or diaphoretic. HENT: Head: Normocephalic and atraumatic. Right Ear: External ear normal. Left Ear: External ear normal. Nose: Nose normal. Cardiovascular: Rate and Rhythm: Normal rate. Heart sounds: Normal heart sounds. No murmur heard. Comments: Slightly irregular Pulmonary: Effort: Pulmonary effort is normal. No respiratory distress. Breath sounds: Normal breath sounds. No wheezing. Chest: Chest wall: No tenderness. Abdominal: General: Bowel sounds are normal. There is distension. Palpations: Abdomen is soft. There is no mass. Tenderness: There is no abdominal tenderness. There is no guarding or rebound. Comments: Abdomen is soft, nondistended, mild distention, bowel sounds are audible but slightly hypoactive. NG tube was placed back on suction and 300 mL of bilious output was obtained. Musculoskeletal: General: Normal range of motion. Cervical back: Normal range of motion and neck supple. Skin: General: Skin is warm and dry. Neurological: General: No focal deficit present. Mental Status: He is alert and oriented to person, place, and time. Psychiatric: Mood and Affect: Mood normal. Labs: Recent Labs Lab 09/23/21 0545 09/24/21 0608 09/25/21 0640 WBC 8.1 9.2 8.7 RBC 4.03* 4.13* 4.11* HGB 12.8* 13.4* 13.2* HCT 38.1* 39.8* 39.9* NA 141 142 144 K 4.1 4.0 4.4 CL 106 106 109* CO2 26.5 24.5 25.6 AGAP 8.5 11.5 9.4 BUN 10 12 11 CR 0.97 0.79 0.74 BUNCREATININ 10.3 15.2 14.9 GFRNON 80* >90 >90 GFR >90 >90 >90 GLU 102* 98 104* CA 8.0* 8.4* 8.5 TP 5.9* 6.6 6.7 ALB 3.1* 3.2* 3.0* TBIL 1.3* 1.6* 1.2 ALKP 37* 37* 29* AST 22 25 25 ALT 29 27 26 Pertinent images and labs reviewed Radiology: Radiology Results (Last 48 hours) 09/24/21 1519 XR CHEST PORTABLE Final result Impression: FINDINGS AND IMPRESSION: CHEST: 1. The cardiomediastinal silhouette is not enlarged. Mild atherosclerotic aorta 2. The lungs are well expanded and clear. 3. Nasogastric tube coursing along the expected location of the cervical os with its tip at the expected location of the fundus of the stomach 4. No significant pleural effusion, no pneumothorax. 5. Degenerative changes of the spine and shoulders. Status post anterior cervical fusion. 6. Distended loops of bowel noted at the margin of the [id number] Ordered By: MARGARITA SLOAN Interpreted By: Moncho Cheng, 09/24/2021 3:23 PM Assessment: Mandie Cotter is a 66-year-old male status post laparoscopic reversal of Hudson's procedure. Plan: Patient was in A. fib and was started on p.o. metoprolol. Okay for sips of clears with intermittent NG tube suction. Continue current medical management. Reassess NG tube output tomorrow. Margarita Sloan MD 09/26/2021 E REPORT DEVELOPER * Lacey Barkley MD - 09/26/2021 1:33 PM CST Patient noted to be tachycardia with irregular rhythm. EKG revealed a.fib RVR. Recheck of HR in 80's. Cancelled IV cardizem and began metoprolol 25 mg po BID. Placed on telemetry. E REPORT DEVELOPER * Lacey Barkley MD - 09/26/2021 11:34 AM CST Hospital Daily Progress Note History Complains of feeling full. No nausea or emesis Physical Exam Filed Vitals: 09/25/21 1935 09/25/21 2316 09/26/21 0354 09/26/21 0738 BP: 148/71 (!) 153/56 148/70 147/75 Pulse: 85 84 86 79 Resp: 18 20 18 18 Temp: 98.3 ??F (36.8 ??C) 99 ??F (37.2 ??C) 98.1 ??F (36.7 ??C) 97.8 ??F (36.6 ??C) TempSrc: Temporal Temporal Temporal Oral SpO2: 100% 98% 96% 100% Weight: 75.8 kg (167 lb 1.7 oz) Height: Intake/Output Summary (Last 24 hours) at 09/26/2021 1134 Last data filed at 09/26/2021 0900 Gross per 24 hour Intake 1960 ml Output 1226 ml Net 734 ml Physical Exam Constitutional: General: He is not in acute distress. Appearance: Normal appearance. HENT: Head: Normocephalic and atraumatic. Cardiovascular: Rate and Rhythm: Regular rhythm. Tachycardia present. Pulmonary: Effort: Pulmonary effort is normal. Breath sounds: Normal breath sounds. Abdominal: General: Bowel sounds are normal. There is distension. Neurological: General: No focal deficit present. Mental Status: He is alert and oriented to person, place, and time. Lab Results Component Value Date NA 144 09/25/2021 K 4.4 09/25/2021 CL 109 (H) 09/25/2021 CO2 25.6 09/25/2021 AGAP 9.4 09/25/2021 BUN 11 09/25/2021 CR 0.74 09/25/2021 BUNCREATININ 14.9 09/25/2021 GFRNON >90 09/25/2021 GFR >90 09/25/2021 GLU 104 (H) 09/25/2021 CA 8.5 09/25/2021 Lab Results Component Value Date WBC 8.7 09/25/2021 HGB 13.2 (L) 09/25/2021 PLT 229 09/25/2021 Lab Results Component Value Date CHOL 137 07/07/2021 TRI 95 07/07/2021 HDL 52 07/07/2021 TP 6.7 09/25/2021 ALB 3.0 (L) 09/25/2021 ALT 26 09/25/2021 HGBA1C 5.6 02/15/2019 TSH 1.649 07/07/2021 Cultures: Blood: No results found for this visit on 09/22/21 (from the past 168 hour(s)). Urine: No results found for this visit on 09/22/21 (from the past 168 hour(s)). Respiratory: XR CHEST PORTABLE Result Date: 09/24/2021 FINDINGS AND IMPRESSION: CHEST: 1. The cardiomediastinal silhouette is not enlarged. Mild atherosclerotic aorta 2. The lungs are well expanded and clear. 3. Nasogastric tube coursing along the expected location of the cervical os with its tip at the expected location of the fundus of the stomach 4. No significant pleural effusion, no pneumothorax. 5. Degenerative changes of the spine and shoulders. Status post anterior cervical fusion. 6. Distended loops of bowel noted at the margin of the [id number] Ordered By: MARGARITA SLOAN Interpreted By: Moncho Cheng, 09/24/2021 3:23 PM Assessment S/p colostomy reversal: Presented for planned colostomy reversal 09/22 after Hudson's procedure for perforated diverticulitis Postop management per general surgery Pain control, monitor for toxicity N.p.o. per general surgery Zosyn per general surgery Await bowel function return Antiemetics PT/OT VTE prophylaxis per general surgery with Lovenox 09/25 significant NG tube output overnight less this a.m. multiple BMs this a.m. Adequate hydration 09/26 Tolerating CLD. Mild distension multiple bowel movements. ?? Hyperlipidemia: Statin ?? RANDY: CPAP nightly ? VTE prophylaxis with Lovenox CODE STATUS full code Plan Await Surgery input on NGT removal EKG LACEY BARKLEY MD E REPORT DEVELOPER * Dulce Nguyen LPN - 09/25/2021 10:49 PM CST Problem: Reduced risk for falls/injury Goal: Reduced Risk for Falls/Injury Outcome: Progressing Problem: Discharge Planning Goal: Knowledge of discharge instructions Outcome: Progressing Problem: Body Image - Altered Goal: Acceptance of altered body image Outcome: Progressing Problem: Bowel Function - Altered Goal: Bowel elimination within specified parameters Outcome: Progressing Problem: Deep Venous Thrombosis - Risk of Goal: Absence of deep venous thrombosis Outcome: Progressing Problem: Infection - Risk of, Surgical Site Infection Goal: Absence of surgical site infection Outcome: Progressing Problem: Pain - Acute Goal: Reduced pain sensation Outcome: Progressing Problem: Urinary Elimination - Impaired Goal: Urinary elimination within specified parameters Outcome: Progressing Problem: Skin integrity, Impaired-wound Goal: Evidence of wound healing Outcome: Progressing E REPORT DEVELOPER * Margarita Sloan MD - 09/25/2021 4:25 PM CST Mandie Browne Amanda 09/25/2021 Subjective Patient without complaints. Denies any nausea or vomiting. NG tube has put out 200 mL of bilious output in almost 10 hours. Denies any abdominal pain except with movement or palpation. Has been tolerating some sips of clears over the NG tube. He is passing flatus and he has had multiple bowel movements and I did look at one of them although loose it was a decent amount. Ambulating without any difficulties. Vitals and WBC within normal limits. Review of Systems Constitutional: Negative. HENT: Negative. Eyes: Negative. Respiratory: Negative. Cardiovascular: Negative. Gastrointestinal: Negative. Endocrine: Negative. Musculoskeletal: Negative. Skin: Negative. Allergic/Immunologic: Negative. Neurological: Negative. Psychiatric/Behavioral: Negative. Objective Vitals: Vital 24 Hour Range Most Recent Value Temperature Temp Min: 98.4 ??F (36.9 ??C) Max: 99.3 ??F (37.4 ??C) 98.5 ??F (36.9 ??C) Pulse Pulse Min: 82 Max: 90 89 Respiratory Resp Min: 18 Max: 20 18 Blood Pressure BP Min: 125/63 Max: 154/75 125/63 Pulse Oximetry SpO2 Min: 95 % Max: 99 % 99 % O2 No data recorded Intake/Output Summary (Last 24 hours) at 09/25/2021 1626 Last data filed at 09/25/2021 0730 Gross per 24 hour Intake 120 ml Output 1825 ml Net -1705 ml Physical Exam Constitutional: General: He is not in acute distress. Appearance: Normal appearance. He is well-developed. He is not ill-appearing, toxic-appearing or diaphoretic. HENT: Head: Normocephalic and atraumatic. Right Ear: External ear normal. Left Ear: External ear normal. Nose: Nose normal. Cardiovascular: Rate and Rhythm: Normal rate and regular rhythm. Heart sounds: Normal heart sounds. No murmur heard. Pulmonary: Effort: Pulmonary effort is normal. No respiratory distress. Breath sounds: Normal breath sounds. No wheezing. Chest: Chest wall: No tenderness. Abdominal: General: Bowel sounds are normal. There is no distension. Palpations: Abdomen is soft. There is no mass. Tenderness: There is no abdominal tenderness. There is no guarding or rebound. Comments: Abdomen is soft, nondistended, bowel sounds are audible but more so in the lower abdomen,Easton-Srinivasan drain full with serosanguineous output, appropriately tender. VAC change performed today, wound noted to be clean, 1 black sponge replaced in the wound, all wound edges protected and another black sponge used to bridge, place to suction at 125 mmHg, no air leak, good seal. Patient tolerated VAC change. Musculoskeletal: General: Normal range of motion. Cervical back: Normal range of motion and neck supple. Skin: General: Skin is warm and dry. Neurological: General: No focal deficit present. Mental Status: He is alert and oriented to person, place, and time. Psychiatric: Mood and Affect: Mood normal. Labs: Recent Labs Lab 09/23/21 0545 09/24/21 0608 09/25/21 0640 WBC 8.1 9.2 8.7 RBC 4.03* 4.13* 4.11* HGB 12.8* 13.4* 13.2* HCT 38.1* 39.8* 39.9* NA 141 142 144 K 4.1 4.0 4.4 CL 106 106 109* CO2 26.5 24.5 25.6 AGAP 8.5 11.5 9.4 BUN 10 12 11 CR 0.97 0.79 0.74 BUNCREATININ 10.3 15.2 14.9 GFRNON 80* >90 >90 GFR >90 >90 >90 GLU 102* 98 104* CA 8.0* 8.4* 8.5 TP 5.9* 6.6 6.7 ALB 3.1* 3.2* 3.0* TBIL 1.3* 1.6* 1.2 ALKP 37* 37* 29* AST 22 25 25 ALT 29 27 26 Pertinent images and labs reviewed Radiology: Radiology Results (Last 48 hours) 09/24/21 1519 XR CHEST PORTABLE Final result Impression: FINDINGS AND IMPRESSION: CHEST: 1. The cardiomediastinal silhouette is not enlarged. Mild atherosclerotic aorta 2. The lungs are well expanded and clear. 3. Nasogastric tube coursing along the expected location of the cervical os with its tip at the expected location of the fundus of the stomach 4. No significant pleural effusion, no pneumothorax. 5. Degenerative changes of the spine and shoulders. Status post anterior cervical fusion. 6. Distended loops of bowel noted at the margin of the [id number] Ordered By: MARGARITA SLOAN Interpreted By: Moncho Cheng, 09/24/2021 3:23 PM Assessment: Mandie Cotter is a 66-year-old male postop day 3 status post laparoscopic reversal of Hudson's. Doing relatively well with bowel function. Plan: Clamp NG tube, give clears including 3 times a day protein drink. Decrease IV fluid to 75 mL/h. Continue ambulation, DVT prophylaxis, incentive. VAC change on Monday. Margarita Sloan MD 09/25/2021 E REPORT DEVELOPER * Lacey Barkley MD - 09/25/2021 12:14 PM CST Hospital Daily Progress Note History Patient walking multiple laps up and down the corridor with daughters. No nausea or emesis overnight. No significant abdominal pain had multiple bowel movements Physical Exam Filed Vitals: 09/24/21 2340 09/25/21 0549 09/25/21 0811 09/25/21 1134 BP: (!) 154/75 138/68 125/63 Pulse: 82 85 89 Resp: 18 18 18 Temp: 99.3 ??F (37.4 ??C) 98.4 ??F (36.9 ??C) 98.5 ??F (36.9 ??C) TempSrc: Tympanic Temporal Temporal SpO2: 95% 95% 99% Weight: 75 kg (165 lb 5.5 oz) Height: Intake/Output Summary (Last 24 hours) at 09/25/2021 1214 Last data filed at 09/25/2021 0730 Gross per 24 hour Intake 120 ml Output 2125 ml Net -2005 ml Physical Exam Constitutional: Appearance: Normal appearance. Cardiovascular: Rate and Rhythm: Normal rate and regular rhythm. Pulmonary: Effort: Pulmonary effort is normal. Breath sounds: Wheezing present. No rhonchi. Abdominal: General: Abdomen is flat. Palpations: Abdomen is soft. Comments: Wound VAC Skin: General: Skin is warm. Neurological: General: No focal deficit present. Mental Status: He is alert and oriented to person, place, and time. Lab Results Component Value Date NA 144 09/25/2021 K 4.4 09/25/2021 CL 109 (H) 09/25/2021 CO2 25.6 09/25/2021 AGAP 9.4 09/25/2021 BUN 11 09/25/2021 CR 0.74 09/25/2021 BUNCREATININ 14.9 09/25/2021 GFRNON >90 09/25/2021 GFR >90 09/25/2021 GLU 104 (H) 09/25/2021 CA 8.5 09/25/2021 Lab Results Component Value Date WBC 8.7 09/25/2021 HGB 13.2 (L) 09/25/2021 PLT 229 09/25/2021 Lab Results Component Value Date CHOL 137 07/07/2021 TRI 95 07/07/2021 HDL 52 07/07/2021 TP 6.7 09/25/2021 ALB 3.0 (L) 09/25/2021 ALT 26 09/25/2021 HGBA1C 5.6 02/15/2019 TSH 1.649 07/07/2021 Cultures: Blood: No results found for this visit on 09/22/21 (from the past 168 hour(s)). Urine: No results found for this visit on 09/22/21 (from the past 168 hour(s)). Respiratory: XR CHEST PORTABLE Result Date: 09/24/2021 FINDINGS AND IMPRESSION: CHEST: 1. The cardiomediastinal silhouette is not enlarged. Mild atherosclerotic aorta 2. The lungs are well expanded and clear. 3. Nasogastric tube coursing along the expected location of the cervical os with its tip at the expected location of the fundus of the stomach 4.No significant pleural effusion, no pneumothorax. 5. Degenerative changes of the spine and shoulders. Status post anterior cervical fusion. 6. Distended loops of bowel noted at the margin of the [id number] Ordered By: MARGARITA SLOAN Interpreted By: Moncho Cheng, 09/24/2021 3:23 PM Assessment S/p colostomy reversal: Presented for planned colostomy reversal 09/22 after Hudson's procedure for perforated diverticulitis Postop management per general surgery Pain control, monitor for toxicity N.p.o. per general surgery Zosyn per general surgery Await bowel function return Antiemetics PT/OT VTE prophylaxis per general surgery with Lovenox 09/25 significant NG tube output overnight less this a.m. multiple BMs this a.m. Adequate hydration ?? Hyperlipidemia: Statin ?? RANDY: CPAP nightly ? VTE prophylaxis with Lovenox CODE STATUS full code Plan Continue NGT for now Continue to ambulate LACEY BARKLEY MD E REPORT DEVELOPER * Evie Antony RN - 09/24/2021 3:10 PM CST INTERDISCIPLINARY CARE CONFERENCE: TEAM ATTENDANCE: CASE MANAGEMENT, UR, NURSING, PT, OT, CARDIOPULMONARY, MANAGER SITE, HOSPITALIST HOME HEALTH,PASTORAL CARE, PHARMACY Meeting held at 1100. Remains NPO. Nursing reports patient to have had an emesis this morning. Willcontinue to monitor. E REPORT DEVELOPER * Margarita Sloan MD - 09/24/2021 2:07 PM CST Mandie Browne Amanad 09/24/2021 Subjective Patient did have some emesis after p.o. pain meds. May be because he took p.o. pain meds on an empty stomach however it was bilious. He denies any abdominal pain. He is passing flatus and states thathe is hearing bowel rumbling. Vitals stable, white blood cell count normal. Review of Systems Constitutional: Negative. HENT: Negative. Eyes: Negative. Respiratory: Negative. Cardiovascular: Negative. Gastrointestinal: Positive for vomiting. Endocrine: Negative. Genitourinary: Negative. Musculoskeletal: Negative. Skin: Negative. Allergic/Immunologic: Negative. Neurological: Negative. Hematological: Negative. Psychiatric/Behavioral: Negative. Objective Vitals: Vital 24 Hour Range Most Recent Value Temperature Temp Min: 97.9 ??F (36.6 ??C) Max: 100.2 ??F (37.9 ??C) 97.9 ??F (36.6 ??C) Pulse Pulse Min: 84 Max: 92 86 Respiratory Resp Min: 18 Max: 22 22 Blood Pressure BP Min: 141/71 Max: 161/67 (!) 161/67 Pulse Oximetry SpO2 Min: 93 % Max: 95 % 93 % O2 O2 Flow Rate (L/min) Av L/min Min: 0 L/min Min taken time: 09/24/21 0708 Max: 0 L/min Max taken time: 09/24/21 0708 Intake/Output Summary (Last 24 hours) at 09/24/2021 1407 Last data filed at 09/24/2021 1130 Gross per 24 hour Intake 1100 ml Output 1755 ml Net -655 ml Physical Exam Vitals and nursing note reviewed. Constitutional: General: He is not in acute distress. Appearance: Normal appearance. He is well-developed. He is not ill-appearing, toxic-appearing or diaphoretic. HENT: Head: Normocephalic and atraumatic. Right Ear: External ear normal. Left Ear: External ear normal. Nose: Nose normal. Cardiovascular: Rate and Rhythm: Normal rate and regular rhythm. Heart sounds: Normal heart sounds. No murmur heard. Pulmonary: Effort: Pulmonary effort is normal. No respiratory distress. Breath sounds: Normal breath sounds. No wheezing. Chest: Chest wall: No tenderness. Abdominal: General: Bowel sounds are normal. There is distension. Palpations: Abdomen is soft. There is no mass. Tenderness: There is no abdominal tenderness. There is no guarding or rebound. Comments: Mild abdominal distention. Lower abdomen not much in the upper abdomen. Dressings are clean dry and intact. Easton-Srinivasan drain with a small amount of serosanguineous output. Voiding, urineconcentrated. Musculoskeletal: General: Normal range of motion. Cervical back: Normal range of motion and neck supple. Skin: General: Skin is warm and dry. Neurological: Mental Status: He is alert and oriented to person, place, and time. Psychiatric: Mood and Affect: Mood normal. Labs: Recent Labs Lab 09/23/21 0545 09/24/21 0608 WBC 8.1 9.2 RBC 4.03* 4.13* HGB 12.8* 13.4* HCT 38.1* 39.8* NA 141 142 K 4.1 4.0 CL 106 106 CO2 26.5 24.5 AGAP 8.5 11.5 BUN 10 12 CR 0.97 0.79 BUNCREATININ 10.3 15.2 GFRNON 80* >90 GFR >90 >90 GLU 102* 98 CA 8.0* 8.4* TP 5.9* 6.6 ALB 3.1* 3.2* TBIL 1.3* 1.6* ALKP 37* 37* AST 22 25 ALT 29 27 Pertinent images and labs reviewed Radiology: Radiology Results (Last 48 hours) None Assessment: Mandie Cotter is a 66-year-old male postop day one status post laparoscopic reversalof Hudson's. He does have mild distention and he did vomit. Passing flatus, ambulating. Plan: Place NG tube and will consider removal tomorrow if minimal output; increase IV fluids to 125mL/h. Continue current medical management. Await bowel function for advancement of diet. Margarita Sloan MD 09/24/2021 E REPORT DEVELOPER * Porsche Lord NP - 09/24/2021 10:03 AM CST Hospitalist Progress Note Subjective Mandie Cotter is resting comfortably in bed when evaluated. POD 2 from colostomy reversal with Dr. Sloan. He reports to feeling okay. Tells me he was nauseous last night and vomited once, again this morning. His abdominal pain is only when he changes positions. He has been walking the halls. He is passing flatus. Tolerating room air. Using his IS. Objective Blood pressure (!) 151/77, pulse 84, temperature 98.7 ??F (37.1 ??C), temperature source Tympanic, resp. rate 19, height 5' 7 (1.702 m), weight 75.4 kg (166 lb 3.6 oz), SpO2 94 %. Intake/Output last 3 shifts: I/O last 3 completed shifts: In: 1340 [P.O.:240; I.V.:1000; IV Piggyback:100] Out: 865 [Urine:600; Drains:265] ROS negative except that noted in subjective. GENERAL: no acute distress, well nourished, well developed HEENT: mucous membranes moist RESPIRATORY: respirations even and unlabored, clear breath sounds, no wheezes, or crackles noted CARDIAC: regular rate and rhythm, no murmur or JVD, no peripheral edema GI: Mildly tender, nondistended, bowel sounds present, no obvious masses MUSC: ROM grossly intact NEURO: . Alert, no gross deficit SKIN: No rashes , skin is warm and dry LYMPH: No obvious lymphadenopathy PSYCH: Alert, appropriate Diagnostic Data No results found. Recent Labs Lab 09/23/21 0545 09/24/21 0608 NA 141 142 K 4.1 4.0 CL 106 106 CO2 26.5 24.5 AGAP 8.5 11.5 BUN 10 12 CR 0.97 0.79 BUNCREATININ 10.3 15.2 GFRNON 80* >90 GFR >90 >90 GLU 102* 98 CA 8.0* 8.4* Recent Labs Lab 09/23/21 0545 09/24/21 0608 WBC 8.1 9.2 RBC 4.03* 4.13* HGB 12.8* 13.4* HCT 38.1* 39.8* MCV 94.5 96.4* MCH 31.8* 32.4* MCHC 33.6 33.7 PLT 221 233 RDW 12.9 13.0 MPV 10.6 10.4 PERNEU 70.9 72.9* PERLYM 17.9 16.7 PERMON 10.3 9.5 NEUC 5.71 6.66* LYMC 1.44 1.53 Medication: ??? acetaminophen 1,000 mg Oral Once ??? atorvastatin 40 mg Oral Nightly at bedtime ??? docusate sodium 100 mg Oral 2 times per day ??? enoxaparin 40 mg Subcutaneous Q24H ??? piperacillin-tazobactam 3.375 g Intravenous Q8H ??? sodium chloride 100 mL/hr at 09/24/21 0820 acetaminophen OR [DISCONTINUED] acetaminophen OR acetaminophen, diphenhydrAMINE, HYDROcodone-acetaminophen, HYDROmorphone, HYDROmorphone, [COMPLETED] ketorolac FOLLOWED BY ketorolac, metoclopramide, ondansetron, oxyCODONE-acetaminophen, sodium chloride 0.9% Assessment and Plan: S/p colostomy reversal: Presented for planned colostomy reversal 09/22 after Hudson's procedure for perforated diverticulitis Postop management per general surgery Pain control, monitor for toxicity N.p.o. per general surgery Zosyn per general surgery Await bowel function return Antiemetics PT/OT VTE prophylaxis per general surgery with Lovenox ?? Hyperlipidemia: Statin ?? RANDY: CPAP nightly ? VTE prophylaxis with Lovenox CODE STATUS full code Cosigned by Lacey Barkley MD at 09/24/2021 4:35 PM OBIEE REPORT DEVELOPER E REPORT DEVELOPER E REPORT DEVELOPER Associated attestation - Lacey Barkley MD - 09/24/2021 4:35 PM OBIEE REPORT DEVELOPER I, LACEY BARKLEY MD, performed an examination of the patient and discussed the management with the Advanced Practice Provider (EPIFANIO). I reviewed the EPIFANIO's progress note and agree with the findings and plan of care, except as I have documented. Multiple episodes of emesis today. No sob, chest pain or abdominal pain. + flatus. Distended per Surgery. Abdomen: soft, NGT reinsertion per Surgery. * Ketty Palacios RN - 09/24/2021 8:41 AM CST Problem: Reduced risk for falls/injury Goal: Reduced Risk for Falls/Injury Outcome: Progressing Problem: Discharge Planning Goal: Knowledge of discharge instructions Outcome: Progressing Problem: Body Image - Altered Goal: Acceptance of altered body image Outcome: Progressing Problem: Bowel Function - Altered Goal: Bowel elimination within specified parameters Outcome: Progressing Problem: Deep Venous Thrombosis - Risk of Goal: Absence of deep venous thrombosis Outcome: Progressing Problem: Infection - Risk of, Surgical Site Infection Goal: Absence of surgical site infection Outcome: Progressing Problem: Pain - Acute Goal: Reduced pain sensation Outcome: Progressing Problem: Urinary Elimination - Impaired Goal: Urinary elimination within specified parameters Outcome: Progressing Problem: Skin integrity, Impaired-wound Goal: Evidence of wound healing Outcome: Progressing E REPORT DEVELOPER * Margarita Sloan MD - 09/23/2021 1:30 PM CST Mandie Cotter 09/23/2021 Subjective Patient seen at 7:30 AM this morning. Doing well. Denies any significant pain, nausea or vomiting. No flatus or bowel movement yet. Osborne catheter is leaking around it. Vitals stable, normal white blood cell count. Review of Systems Constitutional: Negative. HENT: Negative. Eyes: Negative. Respiratory: Negative. Cardiovascular: Negative. Gastrointestinal: Negative. Endocrine: Negative. Genitourinary: Negative. Musculoskeletal: Negative. Skin: Negative. Allergic/Immunologic: Negative. Neurological: Negative. Hematological: Negative. Psychiatric/Behavioral: Negative. Objective Vitals: Vital 24 Hour Range Most Recent Value Temperature Temp Min: 96.6 ??F (35.9 ??C) Max: 100 ??F (37.8 ??C) 98.2 ??F (36.8 ??C) Pulse Pulse Min: 71 Max: 94 94 Respiratory Resp Min: 0 Max: 22 22 Blood Pressure BP Min: 121/48 Max: 198/73 122/60 Pulse Oximetry SpO2 Min: 93 % Max: 100 % 94 % O2 No data recorded Intake/Output Summary (Last 24 hours) at 09/23/2021 1330 Last data filed at 09/23/2021 1227 Gross per 24 hour Intake 1290 ml Output 440 ml Net 850 ml Physical Exam Constitutional: General: He is not in acute distress. Appearance: Normal appearance. He is well-developed. He is not ill-appearing, toxic-appearing or diaphoretic. HENT: Head: Normocephalic and atraumatic. Right Ear: External ear normal. Left Ear: External ear normal. Nose: Nose normal. Cardiovascular: Rate and Rhythm: Normal rate and regular rhythm. Heart sounds: Normal heart sounds. No murmur heard. Pulmonary: Effort: Pulmonary effort is normal. No respiratory distress. Breath sounds: Normal breath sounds. No wheezing. Chest: Chest wall: No tenderness. Abdominal: General: Bowel sounds are normal. There is no distension. Palpations: Abdomen is soft. There is no mass. Tenderness: There is no abdominal tenderness. There is no guarding or rebound. Hernia: No hernia is present. Comments: Abdomen is soft, nondistended, appropriately tender, incisions clean dry and intact without any evidence of infection, VAC in place functioning. Musculoskeletal: General: Normal range of motion. Cervical back: Normal range of motion and neck supple. Right lower leg: No edema. Left lower leg: No edema. Skin: General: Skin is warm and dry. Neurological: Mental Status: He is alert and oriented to person, place, and time. Psychiatric: Mood and Affect: Mood normal. Labs: Recent Labs Lab 09/23/21 0545 WBC 8.1 RBC 4.03* HGB 12.8* HCT 38.1* NA 141 K 4.1 CL 106 CO2 26.5 AGAP 8.5 BUN 10 CR 0.97 BUNCREATININ 10.3 GFRNON 80* GFR >90 GLU 102* CA 8.0* TP 5.9* ALB 3.1* TBIL 1.3* ALKP 37* AST 22 ALT 29 Pertinent images and labs reviewed Radiology: Radiology Results (Last 48 hours) None Assessment: Mandie Cotter is a 66-year-old male postop day 1 reversal Hudson's. Doing relatively well. Plan: Sips of clear liquid diet this evening. Monitor urine output. Await bowel function to advancediet. Continue medical management, labs a.m. Ambulation, DVT prophylaxis, incentive. Margarita Sloan MD 09/23/2021 E REPORT DEVELOPER * Lois Gilliland, PT - 09/23/2021 1:01 PM CST 09/23/21 1200 Therapy Visit Ordering Provider MD [facility] PT Received On 09/23/21 PT Evaluation Completed on 09/23/21 Treatment Day (ACUTE EVAL) Subjective Patient was supine in bed on arrival to the room and agrees to participate in therapy. Reason for admission Patient underwent a reverse colostomy on 09/22/21 by [facility]. Relevant Comorbidities/ Personal Factors to PT Past Medical History: Diagnosis Date ??? Arthritis ??? Cervical stenosis of spine ??? Hyperlipidemia ??? Influenza vaccine administered ??? RANDY (obstructive sleep apnea) Past Surgical History: Procedure Laterality Date ??? COLON SURGERY 03/18/2021 colostomy r/t perferation ??? COLONOSCOPY N/A 2013 ??? COLONOSCOPY N/A 08/13/2021 colonoscopy via rectum and ostomy with polypectomy and biopsy performed by Margarita Sloan MD at [facility] OR ??? COLOSTOMY reversable ??? HERNIA REPAIR Right [facility] ??? HERNIA REPAIR Left [facility] ??? NECK/CHEST PROCEDURE UNLISTED Right [facility], re-built right side of neck. ??? SMALL INTESTINE SURGERY bowel rupture ??? TOTAL KNEE ARTHROPLASTY Bilateral ZANA Partial KR, done @ [facility] No current outpatient medications on file. Verified Two Patient Identifiers Yes Patient consents to therapy Yes Acute Inpatient PT Time Calculation PT Start Time 1035 PT Stop Time 1052 PT Time Calculation (min) 17 min PT Therapy Interruption (min) 45 minute evaluation with 15 minutes F2F and 30 minute chart review/documentation. 2 min treatment Precautions General Precautions Bed Alarm;Chair Alarm;Fall Risk;Multiple lines (Suction vac, wound vac, IV ) PPE Used Gloves;Face mask Instructed on Precautions Yes;Verbalizes understanding Home Living Type of Home House Home Layout Two level;Able to live on main level with bedroom/bathroom Home Accessibility 2-4 Steps to enter (4 GURVINDER ) Prior Function Level of [place] Independent with ADLs;Independent with functional transfers;Independent with ambulation;Independent with homemaking with ambulation Device used at baseline None Baseline Ambulation Distance/Assistance community Lives With Spouse Receives Help From Family ADL Assistance Independent Homemaking Assistance Independent PLOF Comments Patient notes that he still drives Pain Pain Yes Pain Score 3 Location Stomach - nurse aware Activity Tolerance Endurance Tolerates 10 - 20 min activity with rests Endurance Quality Good Cognition Overall Cognitive Status WFL Arousal/Alertness Appropriate responses to stimuli Attention Span Appears intact Memory Appears intact Orientation Level Oriented X4 Overall Extremity Assessment Upper Extremity See OT eval Lower Extremity B LE strength WNL for mobility Bed Mobility Supine to Sit Independent Other (Comment) Patient had good awareness of his lines TRANSFERS Sit to Stand Modified independence Other (Comment) Stand to sit: Mod I Gait Gait Assistance SBA/supervision (assist to manage lines ) Assistive Device (IV pole ) Distance Ambulated (ft) (150' x 2 ) Pattern WFL Weight Bearing Status Weight bearing as tolerated Other (Comment) Patient required assist to manage lines prior to AMB. Once AMB, he was able to navigate the IV pole safely and with no concerns for LOB. Stairs Stair Management Assistance SBA/supervision Stair Management Technique One rail R;Alternating pattern;Forward Number of Stairs (2-3 x 2 ) Other (Comment) Patient navigated 2-3 steps x 2 with sueprvision and no concerns for LOB. Balance Sitting - Static Independent Sitting - Dynamic Independent Standing - Static Independent Standing - Dynamic Independent;SBA Patient/Family Training Other (Comment) PT POC, safety in the room. Assessment Personal Factors/Comorbidities Impacting Care 1-2 personal factors/comorbidities Examination of Body Systems Moderate (3 or more Elements) Objectives of Body Systems Decreased endurance Clinical Presentation of Patient Evolving and changing characteristics Complexity Level of Evaluation Moderate Prognosis Good PT Assess/Eval Other (Comment) Patient is a 66 year old who is at his PLOF given the fact of havingmultiple lines. He was safe with all AMB so no skilled IP needs identified Recommendation PT Recommendation No skilled PT No Skilled PT No acute PT goals identified Plan Progress Discontinue PT If this is the last treatment note,it will serve as the discharge summary Yes End of Session End of Session Safety Call light within reach;Nursing aware of session Interdisciplinary Collaboration Notified nursing that patient is safe with AMB, but will require assist to maneuver lines prior to AMB End of Session Comment Ended the session with patient seated in recliner. E REPORT DEVELOPER * Libby Paul, OT - 09/23/2021 12:41 PM CST 09/23/21 1100 Acute Inpatient OT Time Calculation OT Start Time 1146 Subjective Subjective Patient admitted for colostomy reversal 09/21/21. Patient up in chair w/ present. Patient was able to get himself up OOB independently and transferred into the chair indep w/ PT. Struggles w/ distal reach due to abdominal surgery but has support from spouse if needed. No indication for skilled OT. Patient will be able to return home w/ spouse when OK medically. No training needed. E REPORT DEVELOPER * Alissa Flores, RD - 09/23/2021 11:57 AM CST Dietitian Nutrition Assessment Mandie Browne Amanda, 1955, 66-year-old male admitted for S/P laparoscopic procedure [Z98.890]. Nutrition Recommendations: Nutrition Diagnosis: Inadequate oral intake related to decreased ability to consume adequate nutrition as evidenced by NPO diet order status post colostomy reversal Nutrition Intervention: Food and/or nutrient delivery To advance to clear liquid and then to low fiber as tolerated Nutrition Prescription: Nutrition education to be provided for low fiber diet prior to discharge when diet is resumed Nutrition Monitoring and Evaluation: 1. Diet will resume to meet est needs Past Medical History Past Medical History: Diagnosis Date ??? Arthritis ??? Cervical stenosis of spine ??? Hyperlipidemia ??? Influenza vaccine administered ??? RANDY (obstructive sleep apnea) Admit Date: 09/22/21 MST Score: 0 Referral From: Provider Order Assessment: Initial Assessment Anthropometrics: Wt Readings from Last 3 Encounters: 09/22/21 72.3 kg (159 lb 6.3 oz) 08/20/21 73 kg (161 lb) 08/18/21 73 kg (161 lb) Ht Readings from Last 1 Encounters: 09/22/21 5' 7 (1.702 m) Body mass index is 24.96 kg/m??. BMI Assessment: Normal [place] Body Weight: 148# Percent [place] Body Weight: 107% Usual Body Weight: 161# Percent Usual Body Weight: 98% Percent Weight Loss: 2% Nutrition Focused Physical Findings: no evidence of muscle or adipose tissue loss Nutrition: Current Diet Order: Diet NPO effective now Diet Comment: Patient is NPO at this time Learning needs assessed: Patient is able to understand nutritional guidelines Chewing/swallowing problems: No Food allergies/intolerances: none Cultural/Quaker food preferences: none Current diet appropriate? Yes Current intake sufficient to meet nutritional needs? No Pain affecting PO intake? N/A Estimated Nutrient Needs: Calories: 1800 kcal/day, based on 25 kcal/kg Protein: 72 gm/day, based on 1.0gm/kg Fluid:1800 ml/day, based on 25ml/kg Labs: HGB A1C Date Value Ref Range Status 02/15/2019 5.6 5.7 Final Nutrition Risk: Medium Inadequate Oral Intake Yes Unintended Weight Loss No Loss of Body Fat No Muscle Wasting No Fluid Accumulation No Reduced Geomagnetist Strength No Discharge nutrition plan: Discharge needs assessed. Will provide/update discharge instructions as needed. (See Nutrition Prescription above) ALISSA FLORES RD 09/23/21, 11:57 AM E REPORT DEVELOPER * Aliya Moreno RN - 09/23/2021 11:[address] [facility] for discharge planning @1100 with HOSPITALIST, DIRECTOR SERVICE, CM, UR, PASTORAL CARE, PHARMACY, CARDIOPULMONARY, MANAGER SITE, HH. NPO - advance to sips of clear liquids at 1600 today [place] following surgically PT keshav Osborne Expect 2-3 more days E REPORT DEVELOPER * Aliya Moreno RN - 09/23/2021 9:05 AM CST 09/23/21 0859 Referral Data Referral Reason Discharge Planning Source of Information Patient Patient Information Primary Caregiver Self Support System Immediate family (daughter, son and sister live in [place]) Baseline ADL's Functional Status Independent (patient drives) Living Arrangements Spouse/significant other Type of Residence Private residence (2 story with a basement; all living areas are on the main floor) Ambulation Assistance No Active DME (CPAP - [facility] [place]) Bathing/Grooming Assistance No Dressing Assistance No Behavior Oriented;Cooperative Communication Talks;Understands speaking;Understands [place] Socioeconomic Needs Caregiver Needed No At Risk of Abuse or Neglect No Adequate Resources Yes Psychological Needs: Mental health concerns No Suspected Drug or Alcohol Abuse No Inappropriate Patient/Family Behaviors No Difficult Adjustment to Diagnosis Yes Recent Hospitalization Recent Hospitalization within 30 days No Anticipated Discharge Needs Change in Living Arrangements No In-Home Care or Equipment No Vocational and/or Role Loss No Inability to Complete ADL's No Anticipated DC Plan Living Arrangements Spouse/significant other Support Systems Family members Type of Residence Private residence Assistance Needed No Patient expects to be discharged to: Home Psychosocial Needs With Indication for Social Work Consult Diagnosis/prognosis resulting in poor adjustment or coping with illness No Diagnosis/prognosis with anticipated outcome of major lifestyle changes, including change in assisted living environment No Family concerns/conflicts No Inadequate social and/or financial supports No Abuse and/or neglect of elder, adult or child No Psychiatric and/or substance abuse issues affecting current hospitalization No Homelessness with lack of safe discharge environment No Need for guardianship petition No Chaptered patient No [place] Only - Criminal Background check [place] only - Is patient going to [facility]? No Spoke with patient and in room. Discussed home health services with patient. Patient denies the need for home health services. E REPORT DEVELOPER documented in this encounter H&P Notes * Margarita Sloan MD - 09/22/2021 7:52 AM CST Reason for Visit: Postop Followup (COLONOSCOPY(08/13/2021)) ? History of Present Illness: Mandie Cotter is a 66-year-old male who is status post Hudson's procedure for him perforated diverticulitis. He underwent a colonoscopy via stoma and rectum on August 13, 2021 and it was essentially unremarkable except for small hyperplastic appearing polyps. Pathology was consistent with hyperplastic polyp and reactive lymphoid aggregate. Pathology reviewed with patient. He is here to schedule reversal. He denies any pertinent issues or concerns. ? ROS: Review of Systems Constitutional: Negative. HENT: Negative. Eyes: Negative. Respiratory: Negative. Cardiovascular: Negative. Gastrointestinal: Negative. Genitourinary: Negative. Musculoskeletal: Negative. Skin: Negative. Neurological: Negative. Endo/Heme/Allergies: Negative. Psychiatric/Behavioral: Negative. ? Medications: ?? Current Outpatient Medications: ??? Ascorbic Acid (VITAMIN C) 100 MG tablet, Take 100 mg by mouth daily. Indications: Vitamin and/or Mineral Deficiency, Disp: , Rfl: ??? aspirin 81 MG chewable tablet, Chew 81 mg by mouth daily. Indications: Anticoagulant Therapy, Disp: , Rfl: ??? atorvastatin 40 MG tablet, TAKE 1 TABLET NIGHTLY AT BEDTIME- CHANGE FROM PRAVASTATIN LOW DENSITY LIPOPROTEIN CHOLESTEROL NOT TO GOAL, Disp: 90 tablet, Rfl: 1 ??? Casanthranol-Docusate Sodium (LAXATIVE-STOOL SOFTNER OR), , Disp: , Rfl: ??? Cholecalciferol (VITAMIN D) 50 MCG (2000 UT) Cap, Take 25 mcg by mouth daily. Indications: Vitamin D Deficiency, Disp: , Rfl: ? ? CPAP SUPPLIES, 1 Units by Does not apply route nightly at bedtime. Mask, tubing & filters (Patient taking differently: 1 Units by Does not apply route nightly at bedtime. Mask, tubing & filters Indications: RANDY), Disp: 1 Device, Rfl: 3 ??? Na sulfate-K sulfate-Mg sulfate (SUPREP BOWEL PREP KIT) 17.5-3.13-1.6 GM/177ML Solution, Take 177 mLs by mouth every 12 (twelve) hours. Pour ONE (1) 6-ounce bottle of SUPREP liquid into the mixing container. Add cool drinking water to the 16-ounce line on the container and mix. Have the patientDrink: ALL the liquid in the container, then drink two (2) more 16-ounce containers of water over the next 1 hour., Disp: 1 mL, Rfl: 0 ??? simethicone (GAS-X EXTRA STRENGTH) 125 MG chewable tablet, Chew 125 mg by mouth every 6 (six) hours as needed. Indications: Gas Pain, Disp: , Rfl: ??? Vitamin E 400 units Tab, Take 400 Units by mouth daily. Indications: Nutritional Support, Disp:, Rfl: ??? zinc gluconate 50 MG Tab, Take 1 tablet by mouth daily. Indications: Nutritional Support, Disp:, Rfl: ??? HYDROcodone-acetaminophen 5-325 MG tablet, Take 1 tablet by mouth every 6 (six) hours as neededfor Pain. Indications: Acute Pain < 7 Day Supply, Disp: 20 tablet, Rfl: 0 ??? Na sulfate-K sulfate-Mg sulfate 17.5-3.13-1.6 GM/177ML Solution, Take 177 mLs by mouth every 12(twelve) hours for 1 day. Pour ONE (1) 6-ounce bottle of SUPREP liquid into the mixing container. Add cool drinking water to the 16-ounce line on the container and mix. Have the patient Drink: ALL the liquid in the container, then drink two (2) more 16-ounce containers of water over the next 1 hour., Disp: 354 mL, Rfl: 0 ? Allergies Allergies Allergen Reactions ??? Morphine Itching ? Past Medical History: Diagnosis Date ??? Arthritis ? Cervical stenosis of spine ? Hyperlipidemia ? Influenza vaccine administered ? RANDY (obstructive sleep apnea) ? Past Surgical History: Procedure Laterality Date ??? COLON SURGERY ?? 03/18/2021 ?? colostomy r/t perferation ??? COLONOSCOPY N/A 2013 ??? COLONOSCOPY N/A 08/13/2021 ?? colonoscopy via rectum and ostomy with polypectomy and biopsy performed by Margarita Sloan MD at [facility] OR ??? COLOSTOMY ? reversable ??? HERN[facility] REPAIR Right ? [facility] ??? HERNIA REPAIR Left ? [facility] ??? NECK/CHEST PROCEDURE UNLISTED Right ? [facility], re-built right side of neck. ??? SMALL INTESTINE SURGERY ? bowel rupture ??? TOTAL KNEE ARTHROPLASTY Bilateral ? ZANA Partial KR, done @ [facility] ? Social History ?? Tobacco Use ??? Smoking status: Current Some Day Smoker ? Packs/day: 0.25 ? Types: Cigarettes, Cigars ??? Smokeless tobacco: Never Used ??? Tobacco comment: Has about 1 a day, a couple puffs. Substance Use Topics ??? Alcohol use: Yes ? Alcohol/week: 3.3 standard drinks ? Types: 2 Cans of beer per week ? Comment: daily ??? Drug use: Never ? Family History Problem Relation Name Age of Onset ??? Arthritis in Adults Mother ? Dementia Mother ? at the end per patient ??? Hypertension Mother ? Cancer Father ? Heart Father ? Heart Disease Father ? Cancer Brother ? COPD Brother ? Physical Exam Vitals and nursing note reviewed. Constitutional: General: He is not in acute distress. Appearance: Normal appearance. He is well-developed and normal weight. He is not ill-appearing, toxic-appearing or diaphoretic. HENT: Head: Normocephalic and atraumatic. Right Ear: External ear normal. Left Ear: External ear normal. Nose: Nose normal. Eyes: General: No scleral icterus. Right eye: No discharge. Left eye: No discharge. Conjunctiva/sclera: Conjunctivae normal. Cardiovascular: Rate and Rhythm: Normal rate and regular rhythm. Heart sounds: Normal heart sounds. No murmur. No friction rub. No gallop. Pulmonary: Effort: [...] rebound. Hernia: No hernia is present. Comments: Stoma is pink and viable with stool and gas. Musculoskeletal: General: No tenderness or deformity. Normal range of motion. Cervical back: Normal range of motion and neck supple. Right lower leg: No edema. Left lower leg: No edema. Skin: General: Skin is warm and dry. Findings: No rash. Neurological: Mental Status: He is alert and oriented to person, place, and time. Psychiatric: Mood and Affect: Mood normal. Behavior: Behavior normal. ? Vitals: ?? 08/20/21 1538 Patient Position: Sitting BP Location: Left arm Cuff size: Adult Regular BP: 122/62 Pulse: 55 ?? Body mass index is 25.22 kg/m??. ?? Diagnoses/Impression: 1. Colostomy in place (CMS/[facility]) ? Recommendations and Plan: Mandie Cotter is a 66-year-old male status post Hudson's procedure, status post colonoscopy viastoma and rectum. He is here to schedule reversal. Risks, benefits, alternatives and complications of a laparoscopic possible open reversal of Hudson's was discussed with patient including but not limited to bleeding, infection, wound healing issues, incisional hernia, anastomotic leak, injury to ureter, vessels, intestine, stomach, spleen, bladder, fistula formation, abscess formation, ostomy, possible need for further procedures surgery, reaction to anesthesia, pulmonary or cardiac complications, DVT. He verbalized understanding and wishes to proceed. Consent will be signed on the day of procedure. A respiratory call being followed. ? I spent 35 minutes today reviewing the patient's medical record, obtaining history, performing an exam, ordering medications, tests, and/or procedures, documenting in the medical record, counseling and educating the patient/family/caregiver, reviewing and communicating test results and coordinationof care. ?? Margarita Sloan MD ?? E REPORT DEVELOPER documented in this encounter Consult Notes * Porsche Lord NP - 09/23/2021 10:43 AM CSTAssociated Order(s): IP CONSULT TO HOSPITALIST Hospitalist Consultation Patient: Mandie Cotter Date: 09/23/2021 male, 66-year-old Admit Date: 09/22/2021 Attending: Margarita Sloan MD REASON FOR CONSULTATION: Medical management HISTORY OF PRESENT ILLNESS: Mandie Cotter is a 66-year-old male who presented for planned colostomy reversal on 09/[address] Sloan. Patient has history of perforated diverticulitis status post Hudson's procedure. Patient has a past medical history of diverticulitis, hyperlipidemia, RANDY. He is seen postoperatively and reports to feeling well. He tells me his pain is controlled at rest but rapidly becomes a 10/10 when he sits up. He is not nauseous. No chest pain or shortness of breath. He is excited to get out of bed. Past Medical History: Diagnosis Date ??? Arthritis ??? Cervical stenosis of spine ??? Hyperlipidemia ??? Influenza vaccine administered ??? RANDY (obstructive sleep apnea) Past Surgical History: Procedure Laterality Date ??? COLON SURGERY 03/18/2021 colostomy r/t perferation ??? COLONOSCOPY N/A 2013 ??? COLONOSCOPY N/A 08/13/2021 colonoscopy via rectum and ostomy with polypectomy and biopsy performed by Margarita Sloan MD at [facility] OR ??? COLOSTOMY reversable ??? HERNIA REPAIR Right [facility] ??? HERNIA REPAIR Left [facility] ??? NECK/CHEST PROCEDURE UNLISTED Right [facility], re-built right side of neck. ??? SMALL INTESTINE SURGERY bowel rupture ??? TOTAL KNEE ARTHROPLASTY Bilateral ZANA Partial KR, done @ [facility] Medications Prior to Admission Medication Sig Dispense Refill ??? Ascorbic Acid (VITAMIN C) 100 MG [...] D) 50 MCG (2000 UT) Cap Take 25 mcg by mouth daily. Indications: Vitamin D Deficiency ??? Vitamin E 400 units Tab Take [...] & filters Indications: RANDY) 1 Device 3 ??? simethicone (GAS-X EXTRA STRENGTH) 125 MG chewable tablet Chew 125 mg by mouth every 6 (six) hours as needed. Indications: Gas Pain Allergies Allergen Reactions ??? Morphine Itching Social History: Social History Socioeconomic History ??? Marital status: [...] Father ??? Cancer Brother ??? COPD Brother Medication management - Medication reconciliation reviewed and addressed. REVIEW OF SYSTEMS: A 14 point review of systems was taken and pertinent positive as per HPI PHYSICAL EXAMINATION: Vital 24 Hour Range Most Recent Value Temperature Temp Min: 96.6 ??F (35.9 ??C) Max: 100 ??F (37.8 ??C) 98.4 ??F (36.9 ??C) Pulse Pulse Min: 71 Max: 83 73 Respiratory Resp Min: 0 Max: 22 22 Blood Pressure BP Min: 121/48 Max: 198/73 122/59 Pulse Oximetry SpO2 Min: 93 % Max: 100 % 94 % O2 No data recorded Vital Most Recent Value First Value Weight 72.3 kg (159 lb 6.3 oz) Weight: 73 kg (161 lb) Height 5' 7 (170.2 cm) Height: 5' 7 (170.2 cm) BMI 25.22 N/A GENERAL: no acute distress, well nourished, well developed HEENT: mucous membranes moist RESPIRATORY: respirations even and unlabored, clear breath sounds, no wheezes, or crackles noted CARDIAC: regular rate and rhythm, no murmur or JVD, no peripheral edema GI: Mildly tender, nondistended, bowel sounds present, no obvious masses MUSC: ROM grossly intact NEURO: . Alert, no gross deficit SKIN: No rashes , skin is warm and dry LYMPH: No obvious lymphadenopathy PSYCH: Alert, appropriate LABS: Pertinent Labs reviewed in Epic. Recent Labs Lab 09/23/21 0545 NA 141 K 4.1 CL 106 CO2 26.5 AGAP 8.5 BUN 10 CR 0.97 BUNCREATININ 10.3 GFRNON 80* GFR >90 GLU 102* CA 8.0* Recent Labs Lab 09/23/21 0545 WBC 8.1 RBC 4.03* HGB 12.8* HCT 38.1* MCV 94.5 MCH 31.8* MCHC 33.6 PLT 221 RDW 12.9 MPV 10.6 PERNEU 70.9 PERLYM 17.9 PERMON 10.3 NEUC 5.71 LYMC 1.44 IMAGING & OTHER STUDIES: No results found for this visit on 09/22/21. ASSESSMENT & PLAN: S/p colostomy reversal: Presented for planned colostomy reversal 09/22 after Hudson's procedure for perforated diverticulitis Postop management per general surgery Pain control, monitor for toxicity N.p.o. per general surgery Zosyn per general surgery Antiemetics PT/OT VTE prophylaxis per general surgery with Lovenox Hyperlipidemia: Statin RANDY: CPAP nightly VTE prophylaxis with Lovenox CODE STATUS full code Cosigned by Lacey Barkley MD at 09/23/2021 3:53 PM OBIEE REPORT DEVELOPER E REPORT DEVELOPER E REPORT DEVELOPER Associated attestation - Lacey Barkley MD - 09/23/2021 3:53 PM OBIEE REPORT DEVELOPER I, LACEY BARKLEY MD, performed a Consultation and History & Physical examination of the patient and discussed the management with the Advanced Practice Provider (EPIFANIO). I reviewed the EPIFANIO's noteand agree with the findings and plan of care, except as I have documented. Plan of care developed under my direct supervision. 66 yr hx diverticulitis with colostomy formation in march 2021. Admitted for reversal. Feeling okay except for pain with movement. No n/v, sob or chest pain reported. Lungs:clear Heart: RRR NL S1S2 * Hair Peralta MD - 09/22/2021 7:10 AM CST [facility] In[facility] Consult Note Encounter Date: 09/22/2021 Patient Name: Mandie Cotter Primary Care Physician: LORIE CASTANON MD Reason for Consultation: Placement of pre-operative ureteral catheters History of Present Illness: Pleasant 66 year-old s/p diverting colostomy after perforated diverticulum. He's here today for takedown of colostomy and possible bowel resection. We've been asked to place pre-operative ureteral catheters. He has no prior significant urological history. Past Medical History: Diagnosis Date ??? Arthritis ??? Cervical stenosis of spine ??? Hyperlipidemia ??? Influenza vaccine administered ??? RANDY (obstructive sleep apnea) Past Surgical History: Procedure Laterality Date ??? COLON SURGERY 03/18/2021 colostomy r/t perferation ??? COLONOSCOPY N/A 2013 ??? COLONOSCOPY N/A 08/13/2021 colonoscopy via rectum and ostomy with polypectomy and biopsy performed by Margarita Sloan MD at [facility] OR ??? COLOSTOMY reversable ??? HERNIA REPAIR Right [facility] ??? HERNIA REPAIR Left [facility] ??? NECK/CHEST PROCEDURE UNLISTED Right [facility], re-built right side of neck. ??? SMALL INTESTINE SURGERY bowel rupture ??? TOTAL KNEE ARTHROPLASTY Bilateral ZANA Partial KR, done @ [facility] Social History Socioeconomic History ??? Marital [...] Father ??? Cancer Brother ??? COPD Brother He denies a family history of malignancy. He denies a family history of nephrolithiasis. Medications: MEDICATIONS FOR CURRENT ENCOUNTER: ?? SCHEDULED MEDICATIONS: ??? acetaminophen 975 mg Oral Once Or ??? acetaminophen 650 mg Rectal Once Or ??? acetaminophen 650 mg Oral Once ??? alvimopan 12 mg Oral Once ??? ceFAZolin 2 g Intravenous Card Game Operator ??? ceFAZolin 2 g Intravenous Card Game Operator ??? celecoxib 200 mg Oral Once ??? heparin (porcine) 5,000 Units Subcutaneous See Admin Instructions ??? metroNIDAZOLE 500 mg Intravenous Q8H ??? metroNIDAZOLE 500 mg Intravenous Card Game Operator ??? scopolamine 1 patch Transdermal Once ?? CONTINUOUS MEDICATIONS: ??? lactated ringers ??? lactated ringers 100 mL/hr at 09/22/21 0704 ?? PRN MEDICATIONS: chlorhexidine, chlorhexidine Allergies: Allergies Allergen Reactions ??? Morphine Itching Review of Systems: A complete 10-point review of systems was reviewed with the patient. Pertinent positives and negatives are in the History of Present Illness and Past Medical History. All other systems are unremarkable. Vitals Filed Vitals: 09/03/21 0858 09/22/21 0622 BP: (!) 143/92 Pulse: 87 Resp: 18 Temp: 97.7 ??F (36.5 ??C) TempSrc: Tympanic SpO2: 96% Weight: 73 kg (161 lb) Height: 5' 7 (1.702 m) Height: 5' 7 (170.2 cm) Weight: 73 kg (161 lb) Intake / Output: No intake or output data in the 24 hours ending 09/22/21 0711 Physical Examination: General: Patient is alert, oriented and in no acute distress. Head: Normocephalic, atraumatic. Nares are symmetric without nasal flaring or respiratory distress.No lip cyanosis. PERRLA/EOMI Eyes: Sclera anicteric. Cardiovascular: Peripheral perfusion appears adequate. No digital clubbing or cyanosis present. Chest: Non-labored respirations. Comfortable respiratory effort without recruitment of accessory respiratory muscles. Abdominal: Abdomen soft, nontender, nondistended. No palpable masses. Gu: Not examined Musculoskeletal: Normal station and posture. Moves all extremities symmetrically. Neurological: No focal neurologic deficit. Psychiatric: Appropriate affect and mood. Skin: Normal coloration and turgor. Hematological/Immunological: No bleeding gums or jaundice. Lymphatic: No femoral or inguinal palpable lymphadenopathy. Laboratory: No results for input(s): WBC, HGB, HCT in the last 168 hours. Invalid input(s): LABPLAT No results for input(s): CO2, ANIONGAP, PROTEIN, ALT, AST in the last 168 hours. Invalid input(s): SODIUM, POTASSIUM, CHLORIDE, GLUCOSE, BUNSER, CREATININE, BCR, CALCIUM, ALBUMIN, ALKPHOS, BILITOT No results for input(s): APTT, INR, PTT in the last 168 hours. Lab Results Component Value Date PSA 1.10 07/07/2021 PSA 0.76 07/07/2020 PSA 0.6 02/15/2019 Invalid input(s): COLORU, CLARITYU, SPECGRAVU, PHURINE, PROTURQL, GLUCOSEUR, KETONESU, BILIRUBINU, BLOODUR, UROBILINOGUR, NITRITEU, LEUKESTUR Microbiology: Imaging: Assessment / Plan Assessment: 1. S/P ruptured diverticulum with diverting colostomy ?? Cystoscopy, bilateral ureteral catheterization. Risks of procedure discussed with pt. Thanks for asking us to see this patient in consultation. -------- HAIR PERALTA MD Urology [address] [address] E REPORT DEVELOPER documented in this encounter OR Notes * Op Note - Margarita Sloan MD - 09/22/2021 3:39 PM CST General Surgery Operative Note Patient name: Mandie Cotter Date of : 1955 Date of Surgery: 09/22/2021 Surgeon: Margarita Sloan MD Internal Affairs Investigator: Stapler Coil Unit: Savannah Brush, TALENT ACQUISITION COORDINATOR Circulating Nurse 1: Dorinda Pak RN Scrub Person 1: Ezio Jiang RN Scrub Person 2: Cyn Burleson, GINA Moreno MD (no qualified appeals assistant for performance of the anastomosis) Pre-Op Diagnosis: colostomy in place Post-Op Diagnosis: Same Procedure: Reversal of Hudson's colostomy, bowel resection with end-to-end anastomosis (spy ICG tocheck anastomosis), splenic flexure mobilization, flexible sigmoidoscopy, VAC placement. Anesthesia Type: General Anesthesia Team: HOOKING MACHINE OPERATOR: Mandie Paul CRNA EBL: Minimal Complications: None Indication: Mandie Cotter is a 66-year-old male with a history of Hudson's with and and colostomy after perforated diverticulitis in March 2021. He is here for reversal. Risks, benefits, alternatives and complications of laparoscopic possible open closure of Hudson's procedure was reviewed with patient including but not limited to bleeding, infection, incisional hernia, bowel obstruction, anastomotic leak, fistula formation, possible need for ileostomy year, injury to ureter, spleen, bowel, nerves or other intra-abdominal organs. He verbalized understanding and wished to proceed. Informed consent obtained. Please refer to urology dictation for the ureteral stent procedure. Anesthesia performed a block prior to the procedure. Please refer to that dictation for that procedure. Description of procedure: After informed consent was obtained, patient was taken to the operating room and placed on operating room table in supine position. General endotracheal anesthesia was induced. Orogastric tube was placed. Urologist performed his portion of the procedure and placed a Osborne catheter with the bilateral ureteral stents secured. After induction of general endotracheal anesthesia, patient was then placed in lithotomy position with both arms tucked. Intravenous antibiotics (Ancef and Flagyl were administered). All pressure points were properly padded. The abdomen was prepped and draped in the usual sterile manner. The ostomysite was also cleansed with sterile soap prior to prepping. The rectum was also prepped in the usual sterile manner and draped. The colostomy was then closed using a 2-0 Vicryl running locking suture. A skin incision was then made with the cut mode of the electrocautery around the colostomy site. Dissection was carried down to the subcutaneous plane using a combination of electrocautery and Metzenbaum scissors. There was a lot of adhesions in this area which were carefully taken down. Dissection was carried down until thefascia was reached and the bowel was dissected free circumferentially of the abdominal wall. Limited adhesiolysis was performed from the stomal wound. I did continue to perform some lysis of adhesions to the bowel and mesentery at this point. No hernia was noted at the ostomy site. The distal edge of the colostomy was clearly visualized and all fatty tissue, mesenteric border and epiploic appendages were removed. The colostomy was then resected using a MILVIA 75 blue load eating healthy appearing colon. This was then reintroduced into the abdomen and a small Severiano was placed in the wound with a [address]. Under direct visualization, three 5 mm trochars were then placed in themidline at the supraumbilical level, right lower quadrant and right upper quadrant in the midclavicular level all under direct visualization. Pneumoperitoneum was then established. There was omental adhesions to the midline which were taken down using a LigaSure. Patient was then placed in reverse Trendelenburg position and the left colon was mobilized from the lateral aspect. It appeared that the medial aspect had been mobilized adequately. The white line of Toldt was taken down and there was adhesions in this area which was taken down. The ureter was clearly visualized and protected. Splenic flexure mobilization was also performed to ensure a tension-free anastomosis. The splenic flexure was taken down by lifting the omentum off the distal transverse colon and joining the dissection with the mobilized descending colon. The spleen was visualized and there was adhesions of the spleen tothe splenic flexure which was taken down without any bleeding or injury to the spleen. The patient was then positioned in Trendelenburg position and the rectal stump was clearly identified as it was a suture that was placed at the time of initial surgery. The fat overlying the top of the rectal stump was cleared and healthy rectal stump was noted. Identified when to the anal area and tried different sizers. I tried a 25 mm dilator and then a 29 mm dilator and attempted a 33 mm dilator which was somewhat difficult to pass. A 29 mm circular stapler was then chosen. At this time, there was no qualified business banking sales assistant to help with the anastomosis and I called in Dr. Moreno. He appropriately dilated the rectum using a 25 mm and a 29 mm. After dilatation, the dilator was then exchanged for circular EEA stapler. I then scrubbed back in and exteriorized the distal colon staple line stump through a small Severiano wound protector. The staple line was cut out and a 2-0 Prolene suture was used as a pursestring and a 29 mm anvil was then placed and the pursestring was tied. The descending colon was then reduced inside the abdominal cavity. Pneumoperitoneum was reestablished. The 29 mm circular EEA stapler was then introduced into the anus and an end-to-end anastomosis was performed under direct visualization. The anastomosis was tested by insufflating the rectum transanally. I then introduced A flexible sigmoidoscope and a limited sigmoidoscopy was performed while submerging the pelvis with saline solution and gently occluding the proximal descending colon. No air leak was noted. The anastomosis was noted to be intact, pictures taken, air removed after sigmoidoscopy was performed. The pelvis was irrigated and suctioned. ICG spy fluorescence was performed of the anastomosis and it appeared viable. The donut was also checked at the back table and there were 2 complete donuts. A 15 Yakut Easton-Srinivasan drain was then placed in the pelvis through the right lower quadrant trocar site and secured to the skin using 2-0 nylon suture. Under direct visualization, the5 mm supraumbilical fascia was approximated using a Josh-Rk needle with an 0 Vicryl suture.Closure was noted to be adequate. The fascia at the previous ostomy site was then approximated using a running looped 0 PDS with interspersed [id number] #1 nylon. Closure was noted to be adequate and care was taken not to capture any bowel or any vital structures in this closure. All wound incisions were irrigated, all skin incisions were approximated using senthil. Skin incision at the prior ostomy site was approximated at the ends using senthil and the center was left open and a small black sponge cut to size was placed in the wound, all skin edges protected and placed to 125mmHg of suction without any air leak and with good seal. Sponge, needle and instrument count were correct at the end of the case. I personally removed the ureteral stents and both left and right stents were intact. Patient was transferred to the postanesthesia care unit in stable condition. Patient tolerated procedure well, extubated. Dr. Moreno performed the rectal anastomosis portion of the procedure (no qualified business banking sales assistant) Margarita Sloan MD 09/22/2021 E REPORT DEVELOPER E REPORT DEVELOPER E REPORT DEVELOPER E REPORT DEVELOPER * Op Note - Hair Peralta MD - 09/22/2021 9:25 AM CST Urologic Surgery Operative Note Mandie Cotter [id number] 1955 09/22/21 Preoperative Diagnosis: Diverticulitis Postoperative Diagnosis: Same Surgeon: HAIR PERALTA MD Operative Procedure: Cystoscopy, bilateral ureteral catheteization Anesthetic: General Specimens: * No specimens in log *. Complications: None apparent Drains: Bilat. 5F ureteral catheters EBL: 0 Description of Procedure: The patient was brought to the operative suite where he was prepped and draped in a routine sterile fashion while in a dorsal lithotomy position after the uneventful induction of a general anesthetic. Cystoscopy was undertaken with a 21F rigid cystoscope. There were no urethral strictures. The prostatic urethral estimated length was 2.0cm. There was mild obstruction of the prostatic urethra with[no median lobe enlargement. The bladder itself was endoscopically normal without foreign body or neoplasm. The bladder mucosa was without hyperemia. There was a single orthotopic ureteral orifice bilaterally with clear efflux of urine. 5F whistle-tip catheters were place in each ureter and advanced to the kidneys without difficulty. An 18F Osborne catheter was placed and the ureteral catheters were fixed to the Osborne catheter with silk ties. The patient tolerated this aspect of the procedure well. Disposition: To PACU in stable condition I, HAIR PERALTA MD was present for and performed the entire procedure. E REPORT DEVELOPER documented in this encounter Plan of Treatment Upcoming Encounters Date Type Department Care Team (Late st Contact Info) Description 01/27/2025 7:00 AM CDT Office Visit [facility] [id number] [place] [phone] [place] Nelson [place] [id number] [place] [id number] 10/22/2025 9:15 AM OBIEE REPORT DEVELOPER Office Visit [facility] [phone] Mily Gan MD [address] [phone] documented as of this encounter Goals Goal [...] upon discharge from hospital General No Aliya Moreno M, RN documented as of this encounter Procedures Procedure Name Priority Date/Time Associated Diagnosis Comments COMPREHENSIVE METABOLIC PANEL Routine 10/02/2021 8:54 AM OBIEE REPORT DEVELOPER CBC W/DIFF AUTOMATED Routine 10/02/2021 8:54 AM OBIEE REPORT DEVELOPER XR ABD KUB Today 10/01/2021 8:39 AM OBIEE REPORT DEVELOPER COMPREHENSIVE METABOLIC PANEL Routine 10/01/2021 6:20 AM OBIEE REPORT DEVELOPER CBC W/DIFF AUTOMATED Routine 10/01/2021 6:20 AM OBIEE REPORT DEVELOPER MAGNESIUM Routine 10/01/2021 6:20 AM OBIEE REPORT DEVELOPER HC EIA QL CLOS DIFF TOXIN AG STAT 09/30/2021 4:04 PM OBIEE REPORT DEVELOPER COMPREHENSIVE METABOLIC PANEL Routine 09/30/2021 7:40 AM OBIEE REPORT DEVELOPER CBC W/DIFF AUTOMATED Routine 09/30/2021 7:40 AM OBIEE REPORT DEVELOPER COMPREHENSIVE METABOLIC PANEL Routine 09/29/2021 12:36 PM OBIEE REPORT DEVELOPER CBC W/DIFF AUTOMATED Routine 09/29/2021 12:36 PM OBIEE REPORT DEVELOPER XR ABD KUB Today 09/29/2021 8:59 AM OBIEE REPORT DEVELOPER POTASSIUM, SERUM STAT 09/28/2021 6:50 PM OBIEE REPORT DEVELOPER COMPREHENSIVE METABOLIC PANEL Routine 09/28/2021 9:11 AM OBIEE REPORT DEVELOPER CBC W/DIFF AUTOMATED Routine 09/28/2021 9:11 AM OBIEE REPORT DEVELOPER USE ECHOCARDIOGRAM Today 09/27/2021 2: 34 PM OBIEE REPORT DEVELOPER XR ABD KUB Today 09/27/2021 2:27 PM OBIEE REPORT DEVELOPER ECG 12-LEAD Routine 09/27/2021 1:42 PM OBIEE REPORT DEVELOPER COMPREHENSIVE METABOLIC PANEL Routine 09/27/2021 8:27 AM OBIEE REPORT DEVELOPER CBC W/DIFF AUTOMATED Routine 09/27/2021 8:27 AM OBIEE REPORT DEVELOPER ECG 12-LEAD Routine 09/26/2021 12:44 PM OBIEE REPORT DEVELOPER COMPREHENSIVE METABOLIC PANEL Routine 09/25/2021 6:40 AM OBIEE REPORT DEVELOPER CBC W/DIFF AUTOMATED Routine 09/25/2021 6:40 AM OBIEE REPORT DEVELOPER XR CHEST PORTABLE Routine 09/24/2021 3:1 9 PM OBIEE REPORT DEVELOPER HC OCCULT BLOOD GASTRIC Routine 09/24/2021 3:00 PM OBIEE REPORT DEVELOPER ECG 12-LEAD Routine 09/24/2021 12:41 PM OBIEE REPORT DEVELOPER COMPREHENSIVE METABOLIC PANEL Routine 09/24/2021 6:08 AM OBIEE REPORT DEVELOPER CBC W/DIFF AUTOMATED Routine 09/24/2021 6:08 AM OBIEE REPORT DEVELOPER COMPREHENSIVE METABOLIC PANEL Routine 09/23/2021 5:45 AM OBIEE REPORT DEVELOPER CBC W/DIFF AUTOMATED Routine 09/23/2021 5:45 AM OBIEE REPORT DEVELOPER CYSTOSCOPY,INSERT URETERAL STENT 09/22/2021 8:32 AM OBIEE REPORT DEVELOPER colostomy in place Case Notes parres placing ureteral stents Special Needs 0600 CLOSE ENTEROSTOMY 09/22/2021 8:3 2 AM OBIEE REPORT DEVELOPER colostomy in place Case Notes parres placing ureteral stents Special Needs 0600 TYPE & SCREEN Routine 09/22/2021 6:30 AM OBIEE REPORT DEVELOPER Colostomy in place (CMS/HCC HHS/HCC) PATHOLOGY Routine 09/22/2021 12:00 AM OBIEE REPORT DEVELOPER documented in this encounter Results * (ABNORMAL) CBC W/DIFF AUTOMATED (10/02/2021 8:54 AM OBIEE REPORT DEVELOPER) [facility] WBC 5.6 4.4 - 11.0 x10'3/uL 10/02/2021 9:33 AM [facility] RBC 3.98(L) 4.50 - 5.90 x10'6/uL 10/02/2021 9:33 AM [facility] HGB 12.7(L) 14.0 - 17.5 G/DL 10/02/2021 9:33 AM [facility] HCT 39.1(L) 41.5 - 50.4 % 10/02/2021 9:33 AM [facility] MCV 98.2(H) 80.0 - 96.0 FL 10/02/2021 9:33 AM [facility] MCH 31.9(H) 26.5 - 31.4 PG 10/02/2021 9:33 AM [facility] MCHC 32.5 31.9 - 34.8 G/DL 10/02/2021 9:33 AM [facility] RDW 13.1 12.3 - 14.3 % 10/02/2021 9:33 AM [facility] PLT 382(H) 151 - 353 x10'3/uL 10/02/2021 9:33 AM [facility] MPV 10.8 9.7 - 11.9 FL 10/02/2021 9:33 AM [facility] RBC MORPHOLOGY NORMAL 10/02/2021 9:33 AM [facility] PLT MORPH. NORMAL 10/02/2021 9:33 AM [facility] WBC MORPHOLOGY NORMAL 10/02/2021 9:33 AM [facility] LYMPHOCYTES % 27.2 15.8 - 45.0 % 10/02/2021 9:33 AM [facility] NEUTROPHILS % 61.1 42.1 - 71.9 % 10/02/2021 9:33 AM [facility] MONOCYTES % 9.2 5.7 - 12.5 % 10/02/2021 9:33 AM [facility] EOSINOPHILS 1.4 0.0 - 5.6 % 10/02/2021 9:33 AM [facility] BASOPHILS 0.7 0.0 - 1.3 % 10/02/2021 9:33 AM [facility] ABS. NEUTROPHILS 3.44 1.40 - 6.00 x10'3/uL 10/02/2021 9:33 AM [facility] IMMATURE GRANS % 0.4 0.0 - 0.5 % 10/02/2021 9:33 AM [facility] ABS. LYMPHOCYTES 1.53 0.80 - 4.70 x10'3/uL 10/02/2021 9:33 AM [facility] 10/02/2021 8:54 AM OBIEE REPORT DEVELOPER Delilah Schultz PA-C LABORATORY Final Result [facility] [address] [place] [address], * (ABNORMAL) COMPREHENSIVE METABOLIC PANEL (10/02/2021 8:54 AM OBIEE REPORT DEVELOPER) GLUCOSE 121(H) 70 - 99 MG/DL 10/02/2021 9:57 AM [facility] BUN 5(L) 7 - 18 MG/DL 10/02/2021 9:57 AM [facility] CREATININE S/P/B 0.80 0.7 - 1.3 MG/DL 10/02/2021 9:57 AM [facility] SODIUM S/P/B 140 136 - 145 MMOL/L 10/02/2021 9:57 AM [facility] POTASSIUM S/P/B 4.5 3.5 - 5.1 MMOL/L 10/02/2021 9:57 AM [facility] CHLORIDE S/P/B 105 100 - 108 MMOL/L 10/02/2021 9:57 AM [facility] CO2 29.2 21 - 32 MMOL/L 10/02/2021 9:57 AM [facility] CALCIUM S/P/B 8.4(L) 8.5 - 10.1 MG/DL 10/02/2021 9:57 AM [facility] BILIRUBIN TOTAL S/P/B 0.6 0.2 - 1.2 MG/DL 10/02/2021 9:57 AM [facility] TOTAL PROTEIN S/P/B 6.8 6.4 - 8.2 G/DL 10/02/2021 9:57 AM [facility] ALBUMIN S/P/B 3.0(L) 3.4 - 5.0 G/DL 10/02/2021 9:57 AM [facility] AST 24 15 - 37 U/L 10/02/2021 9:57 AM [facility] ALT 50 16 - 60 U/L 10/02/2021 9:57 AM [facility] ALKALINE PHOSPHATASE S/P/B 36(L) 50 - 136 U/L 10/02/2021 9:57 AM [facility] ANION GAP 5.8 5 - 15 MMOL/L 10/02/2021 9:57 AM [facility] BUN CREATININE RATIO 6.2 6 - 26 10/02/2021 9:57 AM [facility] A/G RATIO 0.8(L) 1.0 - 2.0 RATIO 10/02/2021 9:57 AM OBIEE REPORT DEVELOPER [facility] EGFR NON-AFR. AMER. >90 >90 ML/MIN/1.7 3 M2 10/02/2021 9:57 AM OBIEE REPORT DEVELOPER [facility] EGFR AFR. AMER. >90 >90 ML/MIN/1.7 3 M2 10/02/2021 9:57 AM OBIEE REPORT DEVELOPER [facility] Comment: NOTE: eGFR is not calculated for patients <18 years of age. This is an estimated GFR (CKD EPI) and should not be used for calculating drug doses. 10/02/2021 8:54 AM OBIEE REPORT DEVELOPER Delilah Schultz PA-C LABORATORY Final Result [facility] [address] [place] [address], * XR ABD KUB (10/01/2021 8:39 AM OBIEE REPORT DEVELOPER) Anatomical Region Laterality Modality Abdomen Radiographic Leola ging 10/01/2021 9:03 AM OBIEE REPORT DEVELOPER Impressions 10/01/2021 9:24 AM OBIEE REPORT DEVELOPER IMPRESSION: 1. ??Improved air-filled small bowel loops with minimal residual. No dilatation on today's exam. Also reduction in amount of air within nondilated colon. May be due to resolving ileus. 2. ??. No intra-abdominal mass. Stable overlying skin senthil. Surgical clips in the pelvis with overlying drain in place. 3. ??No distinct calculi overlying the kidneys. Lung bases are clear.. Degenerative change in lumbar spine. Ordered By: TIFFANI MORENO Interpreted By: Víctor Jin, 10/01/2021 9:03 AM Narrative 10/01/2021 9:24 AM OBIEE REPORT DEVELOPER IMAGING STUDIES: ??XR ABD KUB ? DATE: ??10/01/2021 7:58 AM COMPARISON STUDIES: ??09/29/2021 CLINICAL HISTORY: ??ileus ?? . ??Additional history Procedure Note Meng Jin MD - 10/01/2021 IMAGING STUDIES: XR ABD KUB DATE: 10/01/2021 7:58 AM COMPARISON STUDIES: 09/29/2021 CLINICAL HISTORY: ileus . Additional history IMPRESSION: 1. Improved air-filled small bowel loops with minimal residual. Nodilatation on today's exam. Also reduction in amount of air withinnondilated colon. May be due to resolving ileus. 2. . No intra-abdominal mass. Stable overlying skin senthil. Surgicalclips in the pelvis with overlying drain in place. 3. No distinct calculi overlying the kidneys. Lung bases are clear..Degenerative change in lumbar spine. Ordered By: TIFFANI MORENO Interpreted By: Víctor Jin, 10/01/2021 9:03 AM Tiffani Moreno MD GENERAL IMAGING Final Result * MAGNESIUM (10/01/2021 6:20 AM OBIEE REPORT DEVELOPER) MAGNESIUM 2.0 1.8 - 2.4 MG/DL 10/01/2021 11:27 AM OBIEE REPORT DEVELOPER [facility] 10/01/2021 6:20 AM OBIEE REPORT DEVELOPER Betzaida Obrien PA-C LABORATORY Final Result [facility] [address] [place] [address], [place] [phone] * (ABNORMAL) CBC W/DIFF AUTOMATED (10/01/2021 6:20 AM OBIEE REPORT DEVELOPER) [facility] WBC 5.6 4.4 - 11.0 x10'3/uL 10/01/2021 6:50 AM [facility] RBC 4.03(L) 4.50 - 5.90 x10'6/uL 10/01/2021 6:50 AM [facility] HGB 12.8(L) 14.0 - 17.5 G/DL 10/01/2021 6:50 AM [facility] HCT 38.9(L) 41.5 - 50.4 % 10/01/2021 6:50 AM [facility] MCV 96.5(H) 80.0 - 96.0 FL 10/01/2021 6:50 AM [facility] MCH 31.8(H) 26.5 - 31.4 PG 10/01/2021 6:50 AM [facility] MCHC 32.9 31.9 - 34.8 G/DL 10/01/2021 6:50 AM [facility] RDW 13.2 12.3 - 14.3 % 10/01/2021 6:50 AM [facility] PLT 353 151 - 353 x10'3/uL 10/01/2021 6:50 AM [facility] MPV 10.3 9.7 - 11.9 FL 10/01/2021 6:50 AM [facility] RBC MORPHOLOGY NORMAL 10/01/2021 6:50 AM [facility] PLT MORPH. NORMAL 10/01/2021 6:50 AM [facility] WBC MORPHOLOGY NORMAL 10/01/2021 6:50 AM [facility] LYMPHOCYTES % 26.0 15.8 - 45.0 % 10/01/2021 6:50 AM [facility] NEUTROPHILS % 59.6 42.1 - 71.9 % 10/01/2021 6:50 AM [facility] MONOCYTES % 11.2 5.7 - 12.5 % 10/01/2021 6:50 AM [facility] EOSINOPHILS 2.1 0.0 - 5.6 % 10/01/2021 6:50 AM [facility] BASOPHILS 0.7 0.0 - 1.3 % 10/01/2021 6:50 AM [facility] ABS. NEUTROPHILS 3.35 1.40 - 6.00 x10'3/uL 10/01/2021 6:50 AM [facility] IMMATURE GRANS % 0.4 0.0 - 0.5 % 10/01/2021 6:50 AM [facility] ABS. LYMPHOCYTES 1.46 0.80 - 4.70 x10'3/uL 10/01/2021 6:50 AM [facility] 10/01/2021 6:20 AM OBIEE REPORT DEVELOPER Delilah Schultz PA-C LABORATORY Final Result [facility] [address] [place] [address], * (ABNORMAL) COMPREHENSIVE METABOLIC PANEL (10/01/2021 6:20 AM OBIEE REPORT DEVELOPER) GLUCOSE 107(H) 70 - 99 MG/DL 10/01/2021 7:05 AM [facility] BUN 2(L) 7 - 18 MG/DL 10/01/2021 7:05 AM [facility] CREATININE S/P/B 0.73 0.7 - 1.3 MG/DL 10/01/2021 7:05 AM [facility] SODIUM S/P/B 139 136 - 145 MMOL/L 10/01/2021 7:05 AM [facility] POTASSIUM S/P/B 4.5 3.5 - 5.1 MMOL/L 10/01/2021 7:05 AM [facility] CHLORIDE S/P/B 106 100 - 108 MMOL/L 10/01/2021 7:05 AM [facility] CO2 30.0 21 - 32 MMOL/L 10/01/2021 7:05 AM [facility] CALCIUM S/P/B 8.5 8.5 - 10.1 MG/DL 10/01/2021 7:05 AM [facility] BILIRUBIN TOTAL S/P/B 0.6 0.2 - 1.2 MG/DL 10/01/2021 7:05 AM [facility] TOTAL PROTEIN S/P/B 6.5 6.4 - 8.2 G/DL 10/01/2021 7:05 AM [facility] ALBUMIN S/P/B 2.9(L) 3.4 - 5.0 G/DL 10/01/2021 7:05 AM [facility] AST 29 15 - 37 U/L 10/01/2021 7:05 AM [facility] ALT 60 16 - 60 U/L 10/01/2021 7:05 AM [facility] ALKALINE PHOSPHATASE S/P/B 33(L) 50 - 136 U/L 10/01/2021 7:05 AM [facility] ANION GAP 3.0(L) 5 - 15 MMOL/L 10/01/2021 7:05 AM [facility] BUN CREATININE RATIO 2.7(L) 6 - 26 10/01/2021 7:05 AM OBIEE REPORT DEVELOPER [facility] A/G RATIO 0.8(L) 1.0 - 2.0 RATIO 10/01/2021 7:05 AM [facility] EGFR NON-AFR. AMER. >90 >90 ML/MIN/1.7 3 M2 10/01/2021 7:05 AM [facility] EGFR AFR. AMER. >90 >90 ML/MIN/1.7 3 M2 10/01/2021 7:05 AM [facility] Comment: NOTE: eGFR is not calculated for patients <18 years of age. This is an estimated GFR (CKD EPI) and should not be used for calculating drug doses. 10/01/2021 6:20 AM OBIEE REPORT DEVELOPER Delilah Schultz PA-C LABORATORY Final Result Performing Organization Address City/[facility] Co de Phone Number [facility] [address] [place] [address], [place] [phone] * CLOSTRIDIUM DIFFICILE (09/30/2021 4:04 PM OBIEE REPORT DEVELOPER) GD ANTIGEN NEGATIVE NEGATIVE 09/30/2021 4:50 PM OBIEE REPORT DEVELOPER [facility] C DIFFICILE TOXIN A&B (STOOL) NEGATIVE NEGATIVE 09/30/2021 4:50 PM OBIEE REPORT DEVELOPER [facility] COMMENT GDH NEGATIVE/TOXI N A & B NEGATIVE: NEGATIVE FOR TOXIGENIC C. DIFFICILE. GDH NEGATIVE/TOXI N A & B NEGATIVE: NEGATIVE FOR TOXIGENIC C. 09/30/2021 4:50 PM OBIEE REPORT DEVELOPER [facility] STOOL SPECIMEN / Unknown 09/30/2021 4:04 PM OBIEE REPORT DEVELOPER us Tiffani Moreno MD BODY FLUIDS AND STOOLS ORDERABLE S Final Result Performing Organization Address City/[facility]/ZIP Co de Phone Number [facility] [address] [place] [address], * (ABNORMAL) COMPREHENSIVE METABOLIC PANEL (09/30/2021 7:40 AM OBIEE REPORT DEVELOPER) [facility] GLUCOSE 104(H) 70 - 99 MG/DL 09/30/2021 8:31 AM [facility] BUN 2(L) 7 - 18 MG/DL 09/30/2021 8:31 AM [facility] CREATININE S/P/B 0.70 0.7 - 1.3 MG/DL 09/30/2021 8:31 AM [facility] SODIUM S/P/B 140 136 - 145 MMOL/L 09/30/2021 8:31 AM [facility] POTASSIUM S/P/B 4.6 3.5 - 5.1 MMOL/L 09/30/2021 8:31 AM [facility] CHLORIDE S/P/B 105 100 - 108 MMOL/L 09/30/2021 8:31 AM [facility] CO2 27.8 21 - 32 MMOL/L 09/30/2021 8:31 AM [facility] CALCIUM S/P/B 8.8 8.5 - 10.1 MG/DL 09/30/2021 8:31 AM [facility] BILIRUBIN TOTAL S/P/B 0.9 0.2 - 1.2 MG/DL 09/30/2021 8:31 AM [facility] TOTAL PROTEIN S/P/B 6.2(L) 6.4 - 8.2 G/DL 09/30/2021 8:31 AM [facility] ALBUMIN S/P/B 2.7(L) 3.4 - 5.0 G/DL 09/30/2021 8:31 AM [facility] AST 43(H) 15 - 37 U/L 09/30/2021 8:31 AM [facility] ALT 70(H) 16 - 60 U/L 09/30/2021 8:31 AM [facility] ALKALINE PHOSPHATASE S/P/B 31(L) 50 - 136 U/L 09/30/2021 8:31 AM [facility] ANION GAP 7.2 5 - 15 MMOL/L 09/30/2021 8:31 AM [facility] BUN CREATININE RATIO 2.9(L) 6 - 26 09/30/2021 8:31 AM [facility] A/G RATIO 0.8(L) 1.0 - 2.0 RATIO 09/30/2021 8:31 AM [facility] EGFR NON-AFR. AMER. >90 >90 ML/MIN/1.7 3 M2 09/30/2021 8:31 AM [facility] EGFR AFR. AMER. >90 >90 ML/MIN/1.7 3 M2 09/30/2021 8:31 AM [facility] Comment: NOTE: eGFR is not calculated for patients <18 years of age. This is an estimated GFR (CKD EPI) and should not be used for calculating drug doses. 09/30/2021 7:40 AM [facility] Aneesh Mesa MD LABORATORY Final Result [facility] [address] [place] [address], * (ABNORMAL) CBC W/DIFF AUTOMATED (09/30/2021 7:40 AM OBIEE REPORT DEVELOPER) WBC 5.8 4.4 - 11.0 x10'3/uL 09/30/2021 8:13 AM [facility] RBC 3.92(L) 4.50 - 5.90 x10'6/uL 09/30/2021 8:13 AM [facility] HGB 12.6(L) 14.0 - 17.5 G/DL 09/30/2021 8:13 AM [facility] HCT 37.3(L) 41.5 - 50.4 % 09/30/2021 8:13 AM [facility] MCV 95.2 80.0 - 96.0 FL 09/30/2021 8:13 AM [facility] MCH 32.1(H) 26.5 - 31.4 PG 09/30/2021 8:13 AM [facility] MCHC 33.8 31.9 - 34.8 G/DL 09/30/2021 8:13 AM [facility] RDW 13.2 12.3 - 14.3 % 09/30/2021 8:13 AM [facility] PLT 312 151 - 353 x10'3/uL 09/30/2021 8:13 AM [facility] MPV 10.6 9.7 - 11.9 FL 09/30/2021 8:13 AM [facility] RBC MORPHOLOGY NORMAL 09/30/2021 8:13 AM [facility] PLT MORPH. NORMAL 09/30/2021 8:13 AM [facility] WBC MORPHOLOGY NORMAL 09/30/2021 8:13 AM [facility] LYMPHOCYTES % 22.9 15.8 - 45.0 % 09/30/2021 8:13 AM [facility] NEUTROPHILS % 62.2 42.1 - 71.9 % 09/30/2021 8:13 AM [facility] MONOCYTES % 11.6 5.7 - 12.5 % 09/30/2021 8:13 AM [facility] EOSINOPHILS 2.4 0.0 - 5.6 % 09/30/2021 8:13 AM [facility] BASOPHILS 0.7 0.0 - 1.3 % 09/30/2021 8:13 AM [facility] ABS. NEUTROPHILS 3.59 1.40 - 6.00 x10'3/uL 09/30/2021 8:13 AM [facility] IMMATURE GRANS % 0.2 0.0 - 0.5 % 09/30/2021 8:13 AM [facility] ABS. LYMPHOCYTES 1.32 0.80 - 4.70 x10'3/uL 09/30/2021 8:13 AM [facility] 09/30/2021 7:40 AM [facility] Aneesh Mesa MD LABORATORY Final Result [facility] [id number] [place] [address], * (ABNORMAL) COMPREHENSIVE METABOLIC PANEL (09/29/2021 12:36 PM [facility] [employer]) GLUCOSE 115(H) 70 - 99 MG/DL 09/29/2021 1:04 PM [facility] BUN 3(L) 7 - 18 MG/DL 09/29/2021 1:04 PM [facility] CREATININE S/P/B 0.73 0.7 - 1.3 MG/DL 09/29/2021 1:04 PM [facility] SODIUM S/P/B 141 136 - 145 MMOL/L 09/29/2021 1:04 PM [facility] POTASSIUM S/P/B 3.7 3.5 - 5.1 MMOL/L 09/29/2021 1:04 PM [facility] CHLORIDE S/P/B 105 100 - 108 MMOL/L 09/29/2021 1:04 PM [facility] CO2 30.5 21 - 32 MMOL/L 09/29/2021 1:04 PM [facility] [facility] CALCIUM S/P/B 8.4(L) 8.5 - 10.1 MG/DL 09/29/2021 1:04 PM [facility] BILIRUBIN TOTAL S/P/B 0.9 0.2 - 1.2 MG/DL 09/29/2021 1:04 PM [facility] TOTAL PROTEIN S/P/B 6.6 6.4 - 8.2 G/DL 09/29/2021 1:04 PM [facility] ALBUMIN S/P/B 3.0(L) 3.4 - 5.0 G/DL 09/29/2021 1:04 PM [facility] AST 55(H) 15 - 37 U/L 09/29/2021 1:04 PM [facility] ALT 70(H) 16 - 60 U/L 09/29/2021 1:04 PM [facility] ALKALINE PHOSPHATASE S/P/B 32(L) 50 - 136 U/L 09/29/2021 1:04 PM [facility] ANION GAP 5.5 5 - 15 MMOL/L 09/29/2021 1:04 PM [facility] BUN CREATININE RATIO 4.1(L) 6 - 26 09/29/2021 1:04 PM [facility] A/G RATIO 0.8(L) 1.0 - 2.0 RATIO 09/29/2021 1:04 PM [facility] EGFR NON-AFR. AMER. >90 >90 ML/MIN/1.7 3 M2 09/29/2021 1:04 PM [facility] EGFR AFR. AMER. >90 >90 ML/MIN/1.7 3 M2 09/29/2021 1:04 PM [facility] Comment: NOTE: eGFR is not calculated for patients <18 years of age. This is an estimated GFR (CKD EPI) and should not be used for calculating drug doses. 09/29/2021 12:3 6 PM OBIEE REPORT DEVELOPER us Aneesh Mesa MD LABORATORY Final Result [facility] [address] [address] [place] [phone], * (ABNORMAL) CBC W/DIFF AUTOMATED (09/29/2021 12:36 PM OBIEE REPORT DEVELOPER) WBC 6.5 4.4 - 11.0 x10'3/uL 09/29/2021 12:44 PM [facility] RBC 3.91(L) 4.50 - 5.90 x10'6/uL 09/29/2021 12:44 PM [facility] HGB 12.6(L) 14.0 - 17.5 G/DL 09/29/2021 12:44 PM [facility] HCT 37.4(L) 41.5 - 50.4 % 09/29/2021 12:44 PM [facility] MCV 95.7 80.0 - 96.0 FL 09/29/2021 12:44 PM [facility] MCH 32.2(H) 26.5 - 31.4 PG 09/29/2021 12:44 PM [facility] MCHC 33.7 31.9 - 34.8 G/DL 09/29/2021 12:44 PM [facility] RDW 13.2 12.3 - 14.3 % 09/29/2021 12:44 PM [facility] PLT 282 151 - 353 x10'3/uL 09/29/2021 12:44 PM [facility] MPV 9.9 9.7 - 11.9 FL 09/29/2021 12:44 PM [facility] RBC MORPHOLOGY NORMAL 09/29/2021 12:44 PM [facility] PLT MORPH. NORMAL 09/29/2021 12:44 PM [facility] WBC MORPHOLOGY NORMAL 09/29/2021 12:44 PM [facility] LYMPHOCYTES % 21.7 15.8 - 45.0 % 09/29/2021 12:44 PM [facility] NEUTROPHILS % 66.5 42.1 - 71.9 % 09/29/2021 12:44 PM [facility] MONOCYTES % 9.5 5.7 - 12.5 % 09/29/2021 12:44 PM [facility] EOSINOPHILS 1.5 0.0 - 5.6 % 09/29/2021 12:44 PM [facility] BASOPHILS 0.5 0.0 - 1.3 % 09/29/2021 12:44 PM [facility] ABS. NEUTROPHILS 4.33 1.40 - 6.00 x10'3/uL 09/29/2021 12:44 PM [facility] IMMATURE GRANS % 0.3 0.0 - 0.5 % 09/29/2021 12:44 PM [facility] ABS. LYMPHOCYTES 1.41 0.80 - 4.70 x10'3/uL 09/29/2021 12:44 PM [facility] 09/29/2021 12:3 6 PM OBIEE REPORT DEVELOPER us Aneesh Mesa MD LABORATORY Final Result [facility] [address] [place] [address], [place] [phone] * XR ABD KUB (09/29/2021 8:59 AM OBIEE REPORT DEVELOPER) Anatomical Region Laterality Modality Abdomen Radiographic Leola ging 09/29/2021 12:3 2 PM OBIEE REPORT DEVELOPER Impressions 09/29/2021 12:33 PM OBIEE REPORT DEVELOPER FINDINGS IMPRESSION : CHEST: ?? 1. ??The cardiac configuration is normal. Lung bases are clear, within the [id number]. ABDOMEN: 1. ??No free air below the diaphragm. 2. ??Persistent dilated loops of small bowel, air throughout the colon, slightly improved since the previous exam. 3. ??Nasogastric tube in place with the tip at the expected location of the fundus of the stomach. 4. ??Pelvic drain. Skin staple rows left upper quadrant, midabdomen and right upper quadrant 5. ??Renal shadows obscured by bowel. 6. ??Degenerative changes of the spine and hips. Ordered By: TIFFANI MORENO Interpreted By: Moncho Cheng, 09/29/2021 12:32 PM Narrative 09/29/2021 12:33 PM OBIEE REPORT DEVELOPER IMAGING STUDIES: ??XR ABD KUB ? DATE: ??09/29/2021 8:36 AM CLINICAL HISTORY: ??ileus ?? . . COMPARISON STUDIES: 11/27/2020. ?? Procedure Note Moncho Cheng MD - 09/29/2021 IMAGING STUDIES: XR ABD KUB DATE: 09/29/2021 8:36 AM CLINICAL HISTORY: ileus . . COMPARISON STUDIES: 11/27/2020. FINDINGS IMPRESSION : CHEST: 1. The cardiac configuration is normal. Lung bases are clear, within [id number]. ABDOMEN: 1. No free air below the diaphragm. 2. Persistent dilated loops of small bowel, air throughout the colon,slightly improved since the previous exam. 3. Nasogastric tube in place with the tip at the expected location of thefundus of the stomach. 4. Pelvic drain. Skin staple rows left upper quadrant, midabdomen andright upper quadrant 5. Renal shadows obscured by bowel. 6. Degenerative changes of the spine and hips. Ordered By: TIFFANI MORENO Interpreted By: Moncho Cheng, 09/29/2021 12:32 PM Tiffani Moreno MD GENERAL IMAGING Final Result * (ABNORMAL) POTASSIUM, SERUM (09/28/2021 6:50 PM OBIEE REPORT DEVELOPER) Pathologist [facility] POTASSIUM S/P/B 3.2(L) 3.5 - 5.1 MMOL/L 09/28/2021 7:17 PM OBIEE REPORT DEVELOPER [facility] 09/28/2021 6:50 PM OBIEE REPORT DEVELOPER Lacey Barkley MD LABORATORY Final Result [facility] [address] [place] [address], [place] [phone] * (ABNORMAL) COMPREHENSIVE METABOLIC PANEL (09/28/2021 9:11 AM OBIEE REPORT DEVELOPER) GLUCOSE 115(H) 70 - 99 MG/DL 09/28/2021 9:54 AM OBIEE REPORT DEVELOPER [facility] BUN 3(L) 7 - 18 MG/DL 09/28/2021 9:54 AM OBIEE REPORT DEVELOPER [facility] CREATININE S/P/B 0.82 0.7 - 1.3 MG/DL 09/28/2021 9:54 AM [facility] SODIUM S/P/B 142 136 - 145 MMOL/L 09/28/2021 9:54 AM [facility] POTASSIUM S/P/B 2.7(LL) 3.5 - 5.1 MMOL/L 09/28/2021 9:54 AM [facility] Comment: AT CALLED CRITICAL RESULTS AT [id number] TO AND READ BACK BY GINA LERMA [facility]G CHLORIDE S/P/B 103 100 - 108 MMOL/L 09/28/2021 9:54 AM [facility] CO2 31.3 21 - 32 MMOL/L 09/28/2021 9:54 AM [facility] CALCIUM S/P/B 8.5 8.5 - 10.1 MG/DL 09/28/2021 9:54 AM [facility] BILIRUBIN TOTAL S/P/B 0.7 0.2 - 1.2 MG/DL 09/28/2021 9:54 AM [facility] TOTAL PROTEIN S/P/B 6.4 6.4 - 8.2 G/DL 09/28/2021 9:54 AM [facility] ALBUMIN S/P/B 2.7(L) 3.4 - 5.0 G/DL 09/28/2021 9:54 AM [facility] AST 26 15 - 37 U/L 09/28/2021 9:54 AM [facility] ALT 29 16 - 60 U/L 09/28/2021 9:54 AM [facility] ALKALINE PHOSPHATASE S/P/B 25(L) 50 - 136 U/L 09/28/2021 9:54 AM [facility] ANION GAP 7.7 5 - 15 MMOL/L 09/28/2021 9:54 AM [facility] BUN CREATININE RATIO 3.7(L) 6 - 26 09/28/2021 9:54 AM [facility] A/G RATIO 0.7(L) 1.0 - 2.0 RATIO 09/28/2021 9:54 AM [facility] EGFR NON-AFR. AMER. >90 >90 ML/MIN/1.7 3 M2 09/28/2021 9:54 AM [facility] EGFR AFR. AMER. >90 >90 ML/MIN/1.7 3 M2 09/28/2021 9:54 AM [facility] Comment: NOTE: eGFR is not calculated for patients <18 years of age. This is an estimated GFR (CKD EPI) and should not be used for calculating drug doses. 09/28/2021 9:11 AM [facility] Margarita Sloan MD LABORATORY Final Result [facility] [address] [place] [address], [place] [phone] * (ABNORMAL) CBC W/DIFF AUTOMATED (09/28/2021 9:11 AM OBIEE REPORT DEVELOPER) WBC 6.1 4.4 - 11.0 x10'3/uL 09/28/2021 9:19 AM [facility] RBC 3.92(L) 4.50 - 5.90 x10'6/uL 09/28/2021 9:19 AM [facility] HGB 12.6(L) 14.0 - 17.5 G/DL 09/28/2021 9:19 AM [facility] HCT 36.8(L) 41.5 - 50.4 % 09/28/2021 9:19 AM [facility] MCV 93.9 80.0 - 96.0 FL 09/28/2021 9:19 AM [facility] MCH 32.1(H) 26.5 - 31.4 PG 09/28/2021 9:19 AM [facility] MCHC 34.2 31.9 - 34.8 G/DL 09/28/2021 9:19 AM [facility] RDW 13.0 12.3 - 14.3 % 09/28/2021 9:19 AM [facility] PLT 268 151 - 353 x10'3/uL 09/28/2021 9:19 AM [facility] MPV 10.3 9.7 - 11.9 FL 09/28/2021 9:19 AM [facility] RBC MORPHOLOGY NORMAL 09/28/2021 9:19 AM [facility] PLT MORPH. NORMAL 09/28/2021 9:19 AM [facility] WBC MORPHOLOGY NORMAL 09/28/2021 9:19 AM [facility] LYMPHOCYTES % 21.4 15.8 - 45.0 % 09/28/2021 9:19 AM [facility] NEUTROPHILS % 65.3 42.1 - 71.9 % 09/28/2021 9:19 AM [facility] MONOCYTES % 10.3 5.7 - 12.5 % 09/28/2021 9:19 AM [facility] EOSINOPHILS 2.0 0.0 - 5.6 % 09/28/2021 9:19 AM [facility] BASOPHILS 0.5 0.0 - 1.3 % 09/28/2021 9:19 AM [facility] ABS. NEUTROPHILS 4.01 1.40 - 6.00 x10'3/uL 09/28/2021 9:19 AM [facility] IMMATURE GRANS % 0.5 0.0 - 0.5 % 09/28/2021 9:19 AM OBIEE REPORT DEVELOPER [facility] ABS. LYMPHOCYTES 1.31 0.80 - 4.70 x10'3/uL 09/28/2021 9:19 AM OBIEE REPORT DEVELOPER [facility] 09/28/2021 9:11 AM OBIEE REPORT DEVELOPER Margarita Sloan MD LABORATORY Final Result [facility] [address] [place] [address], [place] [phone] * USE ECHOCARDIOGRAM (09/27/2021 2:34 PM OBIEE REPORT DEVELOPER) Anatomical Region Laterality Modality Cardiac Echocardiogram Lacey Barkley MD ECHO Final Result * XR ABD KUB (09/27/2021 2:27 PM OBIEE REPORT DEVELOPER) Anatomical Region Laterality Modality Abdomen Radiographic Leola ging 09/27/2021 4:08 PM OBIEE REPORT DEVELOPER Impressions 09/27/2021 4:09 PM OBIEE REPORT DEVELOPER FINDINGS IMPRESSION : CHEST: ?? 1. ??The cardiac configuration is normal. Lung bases are clear, within the [id number]. ABDOMEN: 1. ??No free air below the diaphragm. 2. ??Numerous dilated loops of small bowel either secondary to ileus or distal small bowel obstruction 3. ??Surgical changes right upper quadrant and left lower quadrant. Drain in the pelvis. 4. ??Degenerative changes of the lower lumbar spine and hips. Ordered By: MARGARITA SLOAN Interpreted By: Moncho Cheng, 09/27/2021 4:08 PM Narrative 09/27/2021 4:09 PM OBIEE REPORT DEVELOPER IMAGING STUDIES: ??XR ABD KUB ? DATE: ??09/27/2021 2:22 PM CLINICAL HISTORY: ??abd ?gastric ??output,abd swelling ?? . . COMPARISON STUDIES: No previous available. ?? Procedure Note Moncho Cheng MD - 09/27/2021 IMAGING STUDIES: XR ABD KUB DATE: 09/27/2021 2:22 PM CLINICAL HISTORY: abd gastric output,abd swelling . . COMPARISON STUDIES: No previous available. FINDINGS IMPRESSION : CHEST: 1. The cardiac configuration is normal. Lung bases are clear, within [id number]. ABDOMEN: 1. No free air below the diaphragm. 2. Numerous dilated loops of small bowel either secondary to ileus ordistal small bowel obstruction 3. Surgical changes right upper quadrant and left lower quadrant. Drainin the pelvis. 4. Degenerative changes of the lower lumbar spine and hips. Ordered By: MARGARITA SLOAN Interpreted By: Moncho Cheng, 09/27/2021 4:08 PM us Margarita Sloan MD GENERAL IMAGING Final Result * ECG 12 lead (09/27/2021 1:42 PM OBIEE REPORT DEVELOPER) 09/27/2021 1:42 PM OBIEE REPORT DEVELOPER Narrative [facility] RAD - 09/27/2021 7:43 PM OBIEE REPORT DEVELOPER ?[facility] ? Test Date: ?2021-09-27 Pat Name: ? MANDIE COTTER ? Department: ? Room: ? 1091 Gender: ? Male ? Laster Hand: ?? : ?1955 ? Requested By: LACEY BARKLEY Order Number: [id number] ? Reading MD: ?? Ben Diego ? Measurements Intervals ?[place] ? Rate: ? 67 ? P: ?5 [place]: ? 111 ?QRS: ?32 QRSD: ? 101 ?T: ?46 QT: ? 392 ? QTc: ?416 ? Interpretive Statements SINUS RHYTHM WITH SHORT OH INTERVAL NONSPECIFIC ST & T-WAVE ABNORMALITY Compared to ECG 09/26/2021 12:44:09 Short [place] interval now present Atrial fibrillation no longer present Aberrant conduction of supraventricular beat(s) no longer present Ventricular premature complex(es) no longer present T-wave abnormality still present E REPORT DEVELOPER Procedure Note Ben Diego MD - 09/27/2021 [facility] Test Date: 2021-09-27 Pat Name: MANDIE COTTER Department: Room: 1091 Gender: Male Laster Hand: : 1955 Requested By: LACEY BARKLEY Order Number: [id number] Reading MD: Ben Diego Measurements Intervals [place] Rate: 67 P: 5 [place]: 111 QRS: 32 QRSD: 101 T: 46 QT: 392 QTc: 416 Interpretive Statements SINUS RHYTHM WITH SHORT OH INTERVAL NONSPECIFIC ST & T-WAVE ABNORMALITY Compared to ECG 09/26/2021 12:44:09 Short [place] interval now present Atrial fibrillation no longer present Aberrant conduction of supraventricular beat(s) no longer present Ventricular premature complex(es) no longer present T-wave abnormality still present E REPORT DEVELOPER us Lacey Barkley MD ECG ORDERABLES Final Result [facility] ([facility] * (ABNORMAL) COMPREHENSIVE METABOLIC PANEL (09/27/2021 8:27 AM OBIEE REPORT DEVELOPER) [facility] GLUCOSE 140(H) 70 - 99 MG/DL 09/27/2021 9:10 AM [facility] BUN 5(L) 7 - 18 MG/DL 09/27/2021 9:10 AM [facility] CREATININE S/P/B 0.78 0.7 - 1.3 MG/DL 09/27/2021 9:10 AM [facility] SODIUM S/P/B 142 136 - 145 MMOL/L 09/27/2021 9:10 AM [facility] POTASSIUM S/P/B 3.5 3.5 - 5.1 MMOL/L 09/27/2021 9:10 AM [facility] CHLORIDE S/P/B 104 100 - 108 MMOL/L 09/27/2021 9:10 AM [facility] CO2 30.4 21 - 32 MMOL/L 09/27/2021 9:10 AM [facility] CALCIUM S/P/B 8.6 8.5 - 10.1 MG/DL 09/27/2021 9:10 AM [facility] BILIRUBIN TOTAL S/P/B 0.9 0.2 - 1.2 MG/DL 09/27/2021 9:10 AM [facility] TOTAL PROTEIN S/P/B 6.7 6.4 - 8.2 G/DL 09/27/2021 9:10 AM [facility] ALBUMIN S/P/B 3.1(L) 3.4 - 5.0 G/DL 09/27/2021 9:10 AM [facility] AST 30 15 - 37 U/L 09/27/2021 9:10 AM [facility] ALT 24 16 - 60 U/L 09/27/2021 9:10 AM [facility] ALKALINE PHOSPHATASE S/P/B 24(L) 50 - 136 U/L 09/27/2021 9:10 AM [facility] ANION GAP 7.6 5 - 15 MMOL/L 09/27/2021 9:10 AM [facility] BUN CREATININE RATIO 6.4 6 - 26 09/27/2021 9:10 AM [facility] A/G RATIO 0.9(L) 1.0 - 2.0 RATIO 09/27/2021 9:10 AM [facility] EGFR NON-AFR. AMER. >90 >90 ML/MIN/1.7 3 M2 09/27/2021 9:10 AM [facility] EGFR AFR. AMER. >90 >90 ML/MIN/1.7 3 M2 09/27/2021 9:10 AM [facility] Comment: NOTE: eGFR is not calculated for patients <18 years of age. This is an estimated GFR (CKD EPI) and should not be used for calculating drug doses. 09/27/2021 8:27 AM OBIEE REPORT DEVELOPER Margarita Sloan MD LABORATORY Final Result [facility] [address] [place] [address], [place] [phone] * (ABNORMAL) CBC W/DIFF AUTOMATED (09/27/2021 8:27 AM OBIEE REPORT DEVELOPER) WBC 7.0 4.4 - 11.0 x10'3/uL 09/27/2021 8:56 AM [facility] RBC 4.13(L) 4.50 - 5.90 x10'6/uL 09/27/2021 8:56 AM [facility] HGB 13.4(L) 14.0 - 17.5 G/DL 09/27/2021 8:56 AM [facility] HCT 39.5(L) 41.5 - 50.4 % 09/27/2021 8:56 AM [facility] MCV 95.6 80.0 - 96.0 FL 09/27/2021 8:56 AM [facility] MCH 32.4(H) 26.5 - 31.4 PG 09/27/2021 8:56 AM [facility] MCHC 33.9 31.9 - 34.8 G/DL 09/27/2021 8:56 AM [facility] RDW 13.2 12.3 - 14.3 % 09/27/2021 8:56 AM [facility] PLT 267 151 - 353 x10'3/uL 09/27/2021 8:56 AM [facility] MPV 11.6 9.7 - 11.9 FL 09/27/2021 8:56 AM [facility] RBC MORPHOLOGY NORMAL 09/27/2021 8:56 AM [facility] PLT MORPH. NORMAL 09/27/2021 8:56 AM [facility] WBC MORPHOLOGY NORMAL 09/27/2021 8:56 AM [facility] LYMPHOCYTES % 22.4 15.8 - 45.0 % 09/27/2021 8:56 AM [facility] NEUTROPHILS % 66.3 42.1 - 71.9 % 09/27/2021 8:56 AM [facility] MONOCYTES % 8.3 5.7 - 12.5 % 09/27/2021 8:56 AM [facility] EOSINOPHILS 2.3 0.0 - 5.6 % 09/27/2021 8:56 AM [facility] BASOPHILS 0.6 0.0 - 1.3 % 09/27/2021 8:56 AM [facility] ABS. NEUTROPHILS 4.61 1.40 - 6.00 x10'3/uL 09/27/2021 8:56 AM [facility] IMMATURE GRANS % 0.1 0.0 - 0.5 % 09/27/2021 8:56 AM [facility] ABS. LYMPHOCYTES 1.56 0.80 - 4.70 x10'3/uL 09/27/2021 8:56 AM OBIEE REPORT DEVELOPER [facility] 09/27/2021 8:27 AM OBIEE REPORT DEVELOPER Margarita Sloan MD LABORATORY Final Result Performing Organization Address [facility]/State/ZIP Co de Phone Number [facility] [address] [place] [address], * ECG 12 lead (09/26/2021 12:44 PM OBIEE REPORT DEVELOPER) 09/26/2021 12:4 4 PM OBIEE REPORT DEVELOPER Narrative [facility] RAD - 09/26/2021 9:49 PM OBIEE REPORT DEVELOPER [facility] ? Test Date: ?2021-09-26 Pat Name: ? MANDIE COTTER ? Department: ? Room: ? 1091 Gender: ? Male ? Laster Hand: ?? : ?1955 ? Requested By: LACEY Bowers Number: [id number] ? Reading : ?? Toño Lovett ? Measurements Intervals ?[place] ? Rate: ? 127 ?P: ? [place]: ? 0 ?QRS: ?9 QRSD: ? 91 ? T: ?32 QT: ? 306 ? QTc: ?445 ? Interpretive Statements ATRIAL FIBRILLATION WITH RAPID VENTRICULAR RESPONSE WITH ABERRANT CONDUCTION OR VENTRICULAR PREMATURE COMPLEXES NONSPECIFIC ST & T-WAVE ABNORMALITY ABNORMAL RHYTHM ECG Compared to ECG 09/24/2021 12:41:26 Ventricular premature complex(es) now present Aberrant conduction of supraventricular beat(s) now present T-wave abnormality now present Sinus rhythm no longer present E REPORT DEVELOPER Procedure Note Toño Lovett MD - 09/26/2021 [facility] Test Date: 2021-09-26 Pat Name: MANDIE COTTER Department: Room: 1091 Gender: Male Laster Hand: : 1955 Requested By: LACEY BARKLEY Order Number: [id number] Reading MD: Toño Lovett Measurements Intervals [place] Rate: 127 P: [place]: 0 QRS: 9 QRSD: 91 T: 32 QT: 306 QTc: 445 Interpretive Statements ATRIAL FIBRILLATION WITH RAPID VENTRICULAR RESPONSE WITH ABERRANTCONDUCTION OR VENTRICULAR PREMATURE COMPLEXES NONSPECIFIC ST & T-WAVE ABNORMALITY ABNORMAL RHYTHM ECG Compared to ECG 09/24/2021 12:41:26 Ventricular premature complex(es) now present Aberrant conduction of supraventricular beat(s) now present T-wave abnormality now present Sinus rhythm no longer present E REPORT DEVELOPER us Lacey Barkley MD ECG ORDERABLES Final Result [facility] RAD * (ABNORMAL) COMPREHENSIVE METABOLIC PANEL (09/25/2021 6:40 AM OBIEE REPORT DEVELOPER) GLUCOSE 104(H) 70 - 99 MG/DL 09/25/2021 7:06 AM [facility] BUN 11 7 - 18 MG/DL 09/25/2021 7:06 AM [facility] CREATININE S/P/B 0.74 0.7 - 1.3 MG/DL 09/25/2021 7:06 AM [facility] SODIUM S/P/B 144 136 - 145 MMOL/L 09/25/2021 7:06 AM [facility] POTASSIUM S/P/B 4.4 3.5 - 5.1 MMOL/L 09/25/2021 7:06 AM [facility] CHLORIDE S/P/B 109(H) 100 - 108 MMOL/L 09/25/2021 7:06 AM [facility] CO2 25.6 21 - 32 MMOL/L 09/25/2021 7:06 AM [facility] CALCIUM S/P/B 8.5 8.5 - 10.1 MG/DL 09/25/2021 7:06 AM [facility] BILIRUBIN TOTAL S/P/B 1.2 0.2 - 1.2 MG/DL 09/25/2021 7:06 AM [facility] TOTAL PROTEIN S/P/B 6.7 6.4 - 8.2 G/DL 09/25/2021 7:06 AM [facility] ALBUMIN S/P/B 3.0(L) 3.4 - 5.0 G/DL 09/25/2021 7:06 AM [facility] AST 25 15 - 37 U/L 09/25/2021 7:06 AM [facility] ALT 26 16 - 60 U/L 09/25/2021 7:06 AM [facility] ALKALINE PHOSPHATASE S/P/B 29(L) 50 - 136 U/L 09/25/2021 7:06 AM [facility] ANION GAP 9.4 5 - 15 MMOL/L 09/25/2021 7:06 AM [facility] BUN CREATININE RATIO 14.9 6 - 26 09/25/2021 7:06 AM [facility] A/G RATIO 0.8(L) 1.0 - 2.0 RATIO 09/25/2021 7:06 AM [facility] EGFR NON-AFR. AMER. >90 >90 ML/MIN/1.7 3 M2 09/25/2021 7:06 AM [facility] EGFR AFR. AMER. >90 >90 ML/MIN/1.7 3 M2 09/25/2021 7:06 AM [facility] Comment: NOTE: eGFR is not calculated for patients <18 years of age. This is an estimated GFR (CKD EPI) and should not be used for calculating drug doses. 09/25/2021 6:40 AM OBIEE REPORT DEVELOPER Porsche Lord NP LABORATORY Final Result [facility] [address] [place] [address], * (ABNORMAL) CBC W/DIFF AUTOMATED (09/25/2021 6:40 AM OBIEE REPORT DEVELOPER) WBC 8.7 4.4 - 11.0 x10'3/uL 09/25/2021 6:52 AM OBIEE REPORT DEVELOPER [facility] RBC 4.11(L) 4.50 - 5.90 x10'6/uL 09/25/2021 6:52 AM [facility] HGB 13.2(L) 14.0 - 17.5 G/DL 09/25/2021 6:52 AM [facility] HCT 39.9(L) 41.5 - 50.4 % 09/25/2021 6:52 AM [facility] MCV 97.1(H) 80.0 - 96.0 FL 09/25/2021 6:52 AM [facility] MCH 32.1(H) 26.5 - 31.4 PG 09/25/2021 6:52 AM [facility] MCHC 33.1 31.9 - 34.8 G/DL 09/25/2021 6:52 AM [facility] RDW 13.1 12.3 - 14.3 % 09/25/2021 6:52 AM [facility] PLT 229 151 - 353 x10'3/uL 09/25/2021 6:52 AM [facility] MPV 10.5 9.7 - 11.9 FL 09/25/2021 6:52 AM [facility] RBC MORPHOLOGY NORMAL 09/25/2021 6:52 AM [facility] PLT MORPH. NORMAL 09/25/2021 6:52 AM [facility] WBC MORPHOLOGY NORMAL 09/25/2021 6:52 AM [facility] LYMPHOCYTES % 14.2(L) 15.8 - 45.0 % 09/25/2021 6:52 AM [facility] NEUTROPHILS % 76.9(H) 42.1 - 71.9 % 09/25/2021 6:52 AM [facility] MONOCYTES % 7.3 5.7 - 12.5 % 09/25/2021 6:52 AM [facility] EOSINOPHILS 0.6 0.0 - 5.6 % 09/25/2021 6:52 AM [facility] BASOPHILS 0.5 0.0 - 1.3 % 09/25/2021 6:52 AM [facility] ABS. NEUTROPHILS 6.67(H) 1.40 - 6.00 x10'3/uL 09/25/2021 6:52 AM [facility] IMMATURE GRANS % 0.5 0.0 - 0.5 % 09/25/2021 6:52 AM [facility] ABS. LYMPHOCYTES 1.23 0.80 - 4.70 x10'3/uL 09/25/2021 6:52 AM [facility] 09/25/2021 6:40 AM [employer] REPORT DEVELOPER us Porsche Lord NP LABORATORY Final Result [facility] [address] [place] [address], * XR CHEST PORTABLE (09/24/2021 3:19 PM [employer] REPORT DEVELOPER) Anatomical Region Laterality Modality Chest Radiographic Leola ging 09/24/2021 3:23 PM [employer] REPORT DEVELOPER Impressions 09/24/2021 3:24 PM [employer] REPORT DEVELOPER FINDINGS AND IMPRESSION: CHEST: 1. ??The cardiomediastinal silhouette is not enlarged. Mild atherosclerotic aorta 2. ??The lungs are well expanded and clear. 3. ??Nasogastric tube coursing along the expected location of the cervical os with its tip at the expected location of the fundus of the stomach 4. ??No significant pleural effusion, no pneumothorax. 5. ??Degenerative changes of the spine and shoulders. Status post anterior cervical fusion. 6. ??Distended loops of bowel noted at the margin of the [id number] Ordered By: MARGARITA SLOAN Interpreted By: Moncho Cheng, 09/24/2021 3:23 PM Narrative 09/24/2021 3:24 PM [employer] REPORT DEVELOPER IMAGING STUDIES: ??XR CHEST PORTABLE ? EXAM DATE/TIME: 09/24/2021 3:09 PM CLINICAL HISTORY: ??Confirmation of Gastric Tube Placement. ?? . . COMPARISON STUDIES: No previous available. ?? Procedure Note Moncho Cheng MD - 09/24/2021 IMAGING STUDIES: XR CHEST PORTABLE EXAM DATE/TIME: 09/24/2021 3:09 PM CLINICAL HISTORY: Confirmation of Gastric Tube Placement. . . COMPARISON STUDIES: No previous available. FINDINGS AND IMPRESSION: CHEST: 1. The cardiomediastinal silhouette is not enlarged. Mild atheroscleroticaorta 2. The lungs are well expanded and clear. 3. Nasogastric tube coursing along the expected location of the cervicalos with its tip at the expected location of the fundus of the stomach 4. No significant pleural effusion, no pneumothorax. 5. Degenerative changes of the spine and shoulders. Status post anteriorcervical fusion. 6. Distended loops of bowel noted at the margin of the [id number] Ordered By: MARGARITA SLOAN Interpreted By: Moncho Cheng, 09/24/2021 3:23 PM us Margarita Sloan MD GENERAL IMAGING Final Result * (ABNORMAL) GASTRIC OCCULT BLOOD (09/24/2021 3:00 PM OBIEE REPORT DEVELOPER) GASTRIC OCCULT BLOOD POSITIVE(A ) NEGATIVE 09/24/2021 3:36 PM OBIEE REPORT DEVELOPER [facility] PH GASTRIC 7 1.3 - 7.8 09/24/2021 3:36 PM OBIEE REPORT DEVELOPER [facility] 09/24/2021 3:00 PM OBIEE REPORT DEVELOPER Margarita Sloan MD BODY FLUIDS AND STOOLS ORDER ZAMZAM Final Result Performing Organization Address City/State/[facility] de Phone Number [facility] [address] [place] [address], * ECG 12 lead (09/24/2021 12:41 PM OBIEE REPORT DEVELOPER) 09/24/2021 12:4 1 PM OBIEE REPORT DEVELOPER Narrative [facility] - 09/26/2021 9:09 AM OBIEE REPORT DEVELOPER ?[facility] ? Test Date: ?2021-09-24 Pat Name: ? MANDIE COTTER ? Department: ? Room: ? 109 Gender: ? Male ? Laster Hand: ?? : ?1955 ? Requested By: PORSCHE LORD Order Number: [id number] ? Reading MD: ?? Toño Lovett ? Measurements Intervals ?[place] ? Rate: ? 93 ? P: ?30 [place]: ? 136 ?QRS: ?13 QRSD: ? 98 ? T: ?53 QT: ? 353 ? QTc: ?439 ? Interpretive Statements SINUS RHYTHM Compared to ECG 03/18/2021 10:08:00 T-wave abnormality no longer present E REPORT DEVELOPER Procedure Note Toño Lovett MD - 09/26/2021 [facility] Test Date: 2021-09-24 Pat Name: MANDIE COTTER Department: Room: 109 Gender: Male Laster Hand: : 1955 Requested By: PORSCHE LORD Order Number: [id number] Reading MD: Toño Lovett Measurements Intervals [place] Rate: 93 P: 30 [place]: 136 QRS: 13 QRSD: 98 T: 53 QT: 353 QTc: 439 Interpretive Statements SINUS RHYTHM Compared to ECG 03/18/2021 10:08:00 T-wave abnormality no longer present E REPORT DEVELOPER us Porsche Lord MANAGER SITE ECG ORDERABLES Final Result [facility] * (ABNORMAL) COMPREHENSIVE METABOLIC PANEL (09/24/2021 6:08 AM OBIEE REPORT DEVELOPER) [facility] Signature GLUCOSE 98 70 - 99 MG/DL 09/24/2021 6:49 AM [facility] BUN 12 7 - 18 MG/DL 09/24/2021 6:49 AM [facility] CREATININE S/P/B 0.79 0.7 - 1.3 MG/DL 09/24/2021 6:49 AM [facility] SODIUM S/P/B 142 136 - 145 MMOL/L 09/24/2021 6:49 AM [facility] POTASSIUM S/P/B 4.0 3.5 - 5.1 MMOL/L 09/24/2021 6:49 AM [facility] CHLORIDE S/P/B 106 100 - 108 MMOL/L 09/24/2021 6:49 AM [facility] CO2 24.5 21 - 32 MMOL/L 09/24/2021 6:49 AM [facility] CALCIUM S/P/B 8.4(L) 8.5 - 10.1 MG/DL 09/24/2021 6:49 AM [facility] BILIRUBIN TOTAL S/P/B 1.6(H) 0.2 - 1.2 MG/DL 09/24/2021 6:49 AM [facility] TOTAL PROTEIN S/P/B 6.6 6.4 - 8.2 G/DL 09/24/2021 6:49 AM [facility] ALBUMIN S/P/B 3.2(L) 3.4 - 5.0 G/DL 09/24/2021 6:49 AM [facility] AST 25 15 - 37 U/L 09/24/2021 6:49 AM [facility] ALT 27 16 - 60 U/L 09/24/2021 6:49 AM [facility] ALKALINE PHOSPHATASE S/P/B 37(L) 50 - 136 U/L 09/24/2021 6:49 AM [facility] ANION GAP 11.5 5 - 15 MMOL/L 09/24/2021 6:49 AM [facility] BUN CREATININE RATIO 15.2 6 - 26 09/24/2021 6:49 AM [facility] A/G RATIO 0.9(L) 1.0 - 2.0 RATIO 09/24/2021 6:49 AM [facility] EGFR NON-AFR. AMER. >90 >90 ML/MIN/1.7 3 M2 09/24/2021 6:49 AM [facility] EGFR AFR. AMER. >90 >90 ML/MIN/1.7 3 M2 09/24/2021 6:49 AM [facility] Comment: NOTE: eGFR is not calculated for patients <18 years of age. This is an estimated GFR (CKD EPI) and should not be used for calculating drug doses. 09/24/2021 6:08 AM OBIEE REPORT DEVELOPER Porsche Lord NP LABORATORY Final Result [facility] [address] [place] [address], * (ABNORMAL) CBC W/DIFF AUTOMATED (09/24/2021 6:08 AM OBIEE REPORT DEVELOPER) WBC 9.2 4.4 - 11.0 x10'3/uL 09/24/2021 6:30 AM [facility] RBC 4.13(L) 4.50 - 5.90 x10'6/uL 09/24/2021 6:30 AM [facility] HGB 13.4(L) 14.0 - 17.5 G/DL 09/24/2021 6:30 AM [facility] HCT 39.8(L) 41.5 - 50.4 % 09/24/2021 6:30 AM [facility] MCV 96.4(H) 80.0 - 96.0 FL 09/24/2021 6:30 AM [facility] MCH 32.4(H) 26.5 - 31.4 PG 09/24/2021 6:30 AM [facility] MCHC 33.7 31.9 - 34.8 G/DL 09/24/2021 6:30 AM [facility] RDW 13.0 12.3 - 14.3 % 09/24/2021 6:30 AM [facility] PLT 233 151 - 353 x10'3/uL 09/24/2021 6:30 AM [facility] MPV 10.4 9.7 - 11.9 FL 09/24/2021 6:30 AM [facility] RBC MORPHOLOGY NORMAL 09/24/2021 6:30 AM [facility] PLT MORPH. NORMAL 09/24/2021 6:30 AM [facility] WBC MORPHOLOGY NORMAL 09/24/2021 6:30 AM [facility] LYMPHOCYTES % 16.7 15.8 - 45.0 % 09/24/2021 6:30 AM [facility] NEUTROPHILS % 72.9(H) 42.1 - 71.9 % 09/24/2021 6:30 AM [facility] MONOCYTES % 9.5 5.7 - 12.5 % 09/24/2021 6:30 AM [facility] EOSINOPHILS 0.3 0.0 - 5.6 % 09/24/2021 6:30 AM [facility] BASOPHILS 0.4 0.0 - 1.3 % 09/24/2021 6:30 AM [facility] ABS. NEUTROPHILS 6.66(H) 1.40 - 6.00 x10'3/uL 09/24/2021 6:30 AM [facility] IMMATURE GRANS % 0.2 0.0 - 0.5 % 09/24/2021 6:30 AM [facility] ABS. LYMPHOCYTES 1.53 0.80 - 4.70 x10'3/uL 09/24/2021 6:30 AM [facility] 09/24/2021 6:08 AM OBIEE REPORT DEVELOPER Porsche Lord NP LABORATORY Final Result [facility] [address] [place] [address], [place] [phone] * (ABNORMAL) CBC W/DIFF AUTOMATED (09/23/2021 5:45 AM OBIEE REPORT DEVELOPER) [facility] WBC 8.1 4.4 - 11.0 x10'3/uL 09/23/2021 6:09 AM [facility] RBC 4.03(L) 4.50 - 5.90 x10'6/uL 09/23/2021 6:09 AM [facility] HGB 12.8(L) 14.0 - 17.5 G/DL 09/23/2021 6:09 AM [facility] HCT 38.1(L) 41.5 - 50.4 % 09/23/2021 6:09 AM [facility] MCV 94.5 80.0 - 96.0 FL 09/23/2021 6:09 AM [facility] MCH 31.8(H) 26.5 - 31.4 PG 09/23/2021 6:09 AM [facility] MCHC 33.6 31.9 - 34.8 G/DL 09/23/2021 6:09 AM [facility] RDW 12.9 12.3 - 14.3 % 09/23/2021 6:09 AM [facility] PLT 221 151 - 353 x10'3/uL 09/23/2021 6:09 AM [facility] MPV 10.6 9.7 - 11.9 FL 09/23/2021 6:09 AM [facility] RBC MORPHOLOGY NORMAL 09/23/2021 6:09 AM [facility] PLT MORPH. NORMAL 09/23/2021 6:09 AM [facility] WBC MORPHOLOGY NORMAL 09/23/2021 6:09 AM [facility] LYMPHOCYTES % 17.9 15.8 - 45.0 % 09/23/2021 6:09 AM [facility] NEUTROPHILS % 70.9 42.1 - 71.9 % 09/23/2021 6:09 AM [facility] MONOCYTES % 10.3 5.7 - 12.5 % 09/23/2021 6:09 AM [facility] EOSINOPHILS 0.1 0.0 - 5.6 % 09/23/2021 6:09 AM [facility] BASOPHILS 0.4 0.0 - 1.3 % 09/23/2021 6:09 AM [facility] ABS. NEUTROPHILS 5.71 1.40 - 6.00 x10'3/uL 09/23/2021 6:09 AM [facility] IMMATURE GRANS % 0.4 0.0 - 0.5 % 09/23/2021 6:09 AM [facility] ABS. LYMPHOCYTES 1.44 0.80 - 4.70 x10'3/uL 09/23/2021 6:09 AM [facility] 09/23/2021 5:45 AM OBIEE REPORT DEVELOPER Margarita Sloan MD LABORATORY Final Result [facility] [address] [place] [address], * (ABNORMAL) COMPREHENSIVE METABOLIC PANEL (09/23/2021 5:45 AM OBIEE REPORT DEVELOPER) GLUCOSE 102(H) 70 - 99 MG/DL 09/23/2021 6:23 AM [facility] BUN 10 7 - 18 MG/DL 09/23/2021 6:23 AM OBIEE REPORT DEVELOPER [facility] CREATININE S/P/B 0.97 0.7 - 1.3 MG/DL 09/23/2021 6:23 AM [facility] SODIUM S/P/B 141 136 - 145 MMOL/L 09/23/2021 6:23 AM [facility] POTASSIUM S/P/B 4.1 3.5 - 5.1 MMOL/L 09/23/2021 6:23 AM [facility] CHLORIDE S/P/B 106 100 - 108 MMOL/L 09/23/2021 6:23 AM [facility] CO2 26.5 21 - 32 MMOL/L 09/23/2021 6:23 AM [facility] CALCIUM S/P/B 8.0(L) 8.5 - 10.1 MG/DL 09/23/2021 6:23 AM [facility] BILIRUBIN TOTAL S/P/B 1.3(H) 0.2 - 1.2 MG/DL 09/23/2021 6:23 AM [facility] TOTAL PROTEIN S/P/B 5.9(L) 6.4 - 8.2 G/DL 09/23/2021 6:23 AM [facility] ALBUMIN S/P/B 3.1(L) 3.4 - 5.0 G/DL 09/23/2021 6:23 AM [facility] AST 22 15 - 37 U/L 09/23/2021 6:23 AM [facility] ALT 29 16 - 60 U/L 09/23/2021 6:23 AM [facility] ALKALINE PHOSPHATASE S/P/B 37(L) 50 - 136 U/L 09/23/2021 6:23 AM [facility] ANION GAP 8.5 5 - 15 MMOL/L 09/23/2021 6:23 AM [facility] BUN CREATININE RATIO 10.3 6 - 26 09/23/2021 6:23 AM [facility] A/G RATIO 1.1 1.0 - 2.0 RATIO 09/23/2021 6:23 AM [facility] EGFR NON-AFR. AMER. 80(L) >90 ML/MIN/1.7 3 M2 09/23/2021 6:23 AM [facility] EGFR AFR. AMER. >90 >90 ML/MIN/1.7 3 M2 09/23/2021 6:23 AM [facility] Comment: NOTE: eGFR is not calculated for patients <18 years of age. This is an estimated GFR (CKD EPI) and should not be used for calculating drug doses. 09/23/2021 5:45 AM OBIEE REPORT DEVELOPER Margarita Sloan MD LABORATORY Final Result Performing Organization Address [facility] Co de Phone Number [facility] [address] [place] [address], [place] [phone] * TYPE & SCREEN (09/22/2021 6:30 AM OBIEE REPORT DEVELOPER) ABO/RH O POSITIVE 09/22/2021 6:51 AM OBIEE REPORT DEVELOPER [facility] ANTIBODY SCREEN NEGATIVE 09/22/2021 7:14 AM [facility] SAMPLE EXPIRATION 09/25/2021,2 359 09/22/2021 6:51 AM [facility] 09/22/2021 6:30 AM OBIEE REPORT DEVELOPER Margarita Sloan MD BLOOD BANK TEST ORDERABLES F inal Result Performing Organization Address City/[facility]/ZIP Co de Phone Number [facility] [address] [place] [address], * Pathology (09/22/2021 12:00 AM OBIEE REPORT DEVELOPER) PATHOLOGY [facility] ? Department of Laboratory Medicine ?[address] ?[place] [address] ? , extension [phone] ? Pathology Report ? Surgical Pathology Report Name: MANDIE COTTER ? Specimen #: [id number] Age: 9 1955 (Age: 66) ?Location: [id number] Sex: M ?Procedure Date: 09/22/2021 Hospital #: [id number] ?Date Received: 09/23/2021 Date Reported: 09/24/2021 Provider: MARGARITA SLOAN MD Source: A: Proximal/descend ing colostomy B: Anastomotic rings Clinical History: Colostomy in place Gross Description: Received in two parts: A) Received in formalin, labeled with a patient label and as proximal/descen ding colon ostomy are two separate pieces of tissue. ??The larger piece is 6.5 x 3 x 2.5 cm. ??It is erythematous. ??On one surface is a 4.5 x 1 cm ellipse of warren skin with a defect running down the center. ??Sections reveal the stomal opening leads to segments of bowel. ??The bowel is erythematous and no discrete lesions are identified. ??Riprap Worker tissue is submitted in cassette A1. ??The second piece of tissue is 3 x 1.5 x 1 cm. ??It is also erythematous. ??Sections reveal disrupted bowel tissue with no discrete lesions noted grossly. ??Riprap Worker tissue is submitted in cassette A2. B) Received in formalin, labeled with a patient label and as anastomotic donuts is a 1.8 cm diameter, 1.0 cm long portion of bowel tissue with multiple sutures and senthil. ??The tissue is erythematous but no discrete lesions are noted on section. ??Riprap Worker tissue is submitted in cassette B1. FINAL DIAGNOSIS: A) PROXIMAL/DESCEND ING COLOSTOMY, RESECTION: ? - COLOSTOMY WITHOUT DIAGNOSTIC ABNORMALITY. B) COLON, ANASTOMOTIC DONUTS, EXCISION: ? - COLONIC TISSUE WITHOUT DIAGNOSTIC ABNORMALITY. Electronically Signed Out ? Jay Cabezas M.D. [facility] Tissue specimen (specimen) COLON STRUCTURE / Unknown 09/22/2021 1:00 PM OBIEE REPORT DEVELOPER Comment:Reverse ostomy Tissue specimen (specimen) COLON STRUCTURE / Unknown 09/22/2021 2:00 PM OBIEE REPORT DEVELOPER us Margarita Sloan MD PATHOLOGY/CYTOLOGY ORDERABLE S Final Result [facility] [address] [place] [address], [id number] documented in this encounter Visit Diagnoses Diagnosis S/P laparoscopic procedure- Primary Other postprocedural status Colostomy in place ([facility]) Colostomy status documented in this encounter Admitting Diagnoses Diagnosis S/P laparoscopic procedure Other postprocedural status documented in this encounter Administered Medications Inactive Administered Medications - up to 3 most recent administrations Medication Order MAR Action Action Date Dose Rate Site acetaminophen (TYLENOL) 325 MG/10.15ML solution 650 mg 650 mg, Oral, Every 4 hours PRN, Mild pain (Scale 1 - 3), Starting on Mon09/22/21 at 1607, Until 10/02/21 at 1701, Give if unable to swallow tablets/capsules or if patient prefers liquid. Maximum dose of acetaminophen is 4000 mg from all sources in 24 hours., Post-Op acetaminophen (TYLENOL) tablet 1,000 mg 1,000 mg, Oral, call manager to O.R., 1 dose, First dose on Mon09/22/21 at 0630, Maximum dose of acetaminophen is 4000 mg from all sources in 24 hours., Pre-OpIndications:Colostomy in place ([facility]) Given 09/22/2021 6:49 AM OBIEE REPORT DEVELOPER 1,000 mg amLODIPine (NORVASC) tablet 5 mg 5 mg, Oral, Daily, First dose on 09/27/21 at 1645, Until Discontinued Given 10/02/2021 8:26 AM OBIEE REPORT DEVELOPER 5 mg Given 10/01/2021 8:04 AM OBIEE REPORT DEVELOPER 5 mg Given 09/30/2021 8:41 AM OBIEE REPORT DEVELOPER 5 mg atorvastatin (LIPITOR) tablet 40 mg 40 mg, Oral, Nightly at bedtime, First dose on Yamilex 09/23/21 at 2100, Until Discontinued, TAKE 1 TABLET NIGHTLY AT BEDTIME- CHANGE FROM PRAVASTATIN LOW DENSITY LIPOPROTEIN CHOLESTEROL NOT TO GOAL Given 09/23/2021 8:13 PM OBIEE REPORT DEVELOPER 40 mg ceFAZolin (ANCEF) 2 g in sterile water 20 mL IV 2 g, Intravenous, at 240 mL/hr, call manager, 1 dose, On Mon09/22/21 at 0630, Give 2 gram dose for patients less than 120 kg. Give within 60 minutes of surgical incision., Pre-OpIndications:Colostomy in place ([facility]) Given 09/22/2021 8:52 AM OBIEE REPORT DEVELOPER 2 g 240 mL/ hr ceFAZolin (ANCEF) 2 g in sterile water 20 mL IV 2 g, Intravenous, at 240 mL/hr, Once, 1 dose, On Mon09/22/21 at 1400 Given 09/22/2021 1:34 PM OBIEE REPORT DEVELOPER 2 g 240 mL/hr celecoxib (CeleBREX) capsule 200 mg 200 mg, Oral, Once, 1 dose, On Mon09/22/21 at 0630, Administer 1 hour prior to surgery call manager to O.R., Pre-OpIndications:Colostomy in place ([facility]) Given 09/22/2021 7:18 AM OBIEE REPORT DEVELOPER 200 mg dextrose 5 % and 0.45 % NaCl with KCl 40 mEq infusion at 125 mL/hr, Intravenous, Continuous, Starting on Mon09/28/21 at 1030, Until 10/02/21 at 1052 New Bag 10/02/2021 12:35 AM OBIEE REPORT DEVELOPER 125 mL/hr New Bag 10/01/2021 5:14 PM OBIEE REPORT DEVELOPER 125 mL/hr New Bag 10/01/2021 9:23 AM OBIEE REPORT DEVELOPER 125 mL/hr dextrose 5 %-sodium chloride 0.45 % infusion at 125 mL/hr, Intravenous, Continuous, Starting on Mon09/27/21 at 1600, Until Mon09/28/21 at 1003 New Bag 09/28/2021 3:58 AM OBIEE REPORT DEVELOPER 125 mL/hr Rate/Dose Change 09/28/2021 12:52 AM OBIEE REPORT DEVELOPER 125 mL /hr New Bag 09/27/2021 4:14 PM OBIEE REPORT DEVELOPER 50 mL/hr digoxin (LANOXIN) injection 250 mcg 250 mcg, Intravenous, Once, 1 dose, On Mon09/26/21 at 1715, Administer slowly over at least 5 minutes. For loading (digitalizing) doses, patient must be on telemetry. Given 09/26/2021 5:23 PM OBIEE REPORT DEVELOPER 250 mcg diphenhydrAMINE (BENADRYL) injection 25 mg 25 mg, Intravenous, Every 6 hours PRN, Itching, Starting on Mon09/22/21 at 1550, Until 10/02/21 at 1701, For IV administration, give no faster than 25 mg/min. docusate sodium (COLACE) capsule 100 mg 100 mg, Oral, Every 12 hours scheduled (2 times per day), First dose on Yamilex 09/23/21 at 0900, Until Discontinued, Start Post-op Day #1, Post-Op Given 09/24/2021 8:28 AM OBIEE REPORT DEVELOPER 100 mg Given 09/23/2021 8:13 PM OBIEE REPORT DEVELOPER 100 mg enoxaparin (LOVENOX) 40 MG/0.4ML syringe 40 mg 40 mg, Subcutaneous, Every 24 hours, First dose on Yamilex 09/23/21 at 1600, Until Discontinued, Administer by deep SubQ injection alternating between the left or right anterolateral and left or right posterolateral abdominal wall., Post-Op Given 10/01/2021 4:01 PM OBIEE REPORT DEVELOPER 40 mg Left Lower Abdomen Given 09/30/2021 3:44 PM OBIEE REPORT DEVELOPER 40 mg Le ft Lower Abdomen Given 09/29/2021 4:12 PM OBIEE REPORT DEVELOPER 40 mg Ri ght Lower Abdomen famotidine (PEPCID) injection 20 mg 20 mg, Intravenous, Once, 1 dose, On Mon09/22/21 at 0630, On admission IV Push over 2 minutes, Pre-Op Given 09/22/2021 7:01 AM OBIEE REPORT DEVELOPER 20 mg famotidine (PEPCID) injection 20 mg 20 mg, Intravenous, Once, 1 dose, On Mon09/24/21 at 1200, IV Push over 2 minutes Given 09/24/2021 11:51 AM OBIEE REPORT DEVELOPER 20 mg fentaNYL (SUBLIMAZE) injection 50 mcg 50 mcg, Intravenous, Every 5 min PRN, Severe pain (Scale 8 - 10), 5 doses, Starting on Mon09/22/21 at 1453, Until Mon09/22/21 at 1536, Maximum cumulative dose 250 mcg. Do not administer if patient is overly sedated, SpO2 less than 90%, or Respiratory Rate less than 12. If more than one IV analgesic is ordered per pain level, use in this order: fentaNYL, morphine, HYDROmorphone. If desired pain control is not reached, move to next ordered medication at next dosing interval., PACU Given 09/22/2021 3:27 PM OBIEE REPORT DEVELOPER 50 mcg Given 09/22/2021 3:03 PM OBIEE REPORT DEVELOPER 50 mcg gabapentin (NEURONTIN) capsule 600 mg 600 mg, Oral, call manager to O.R., 1 dose, First dose on Mon09/22/21 at 0630, Pre-OpIndications:Colostomy in place ([facility]) Given 09/22/2021 6:49 AM OBIEE REPORT DEVELOPER 600 mg HYDROcodone-acetaminophen (NORCO) 5-325 MG tablet 1 tablet 1 tablet, Oral, Every 4 hours PRN, Moderate pain (Scale 4 - 7), Starting on Yamilex 09/23/21 at 1200, Until 10/02/21 at 1701, Administer as Analgesic choice number moderate., Post-Op Given 09/24/2021 8:27 AM OBIEE REPORT DEVELOPER 1 tablet Given 09/23/2021 11:23 PM OBIEE REPORT DEVELOPER 1 tablet HYDROmorphone (DILAUDID) injection 0.5 mg 0.5 mg, Intravenous, Every 2 hours PRN, Moderate pain (Scale 4 - 7), Starting on Mon09/22/21 at 1607, Until 10/02/21 at 1701, If unable to tolerate oral analgesic, Post-Op HYDROmorphone (DILAUDID) injection 1 mg 1 mg, Intravenous, Every 2 hours PRN, Severe pain (Scale 8 - 10), Starting on Mon09/22/21 at 1607, Until 10/02/21 at 1701, If unable to tolerate oral analgesic, Post-Op Given 09/24/2021 3:16 AM OBIEE REPORT DEVELOPER 1 mg Given 09/23/2021 9:19 PM OBIEE REPORT DEVELOPER 1 mg Given 09/23/2021 2:36 AM OBIEE REPORT DEVELOPER 1 mg ketorolac (TORADOL) injection 15 mg 15 mg, Intravenous, Every 8 hours, 3 doses, First dose on Mon09/22/21 at 1630, Last dose on Yamilex 09/23/21 at 0830, For IV administration, give over 15 seconds., Post-Op Given 09/23/2021 9: 25 AM OBIEE REPORT DEVELOPER 15 mg Given 09/23/2021 12:01 AM OBIEE REPORT DEVELOPER 15 mg Given 09/22/2021 4:43 PM OBIEE REPORT DEVELOPER 15 mg ketorolac (TORADOL) injection 15 mg 15 mg, Intravenous, Every 6 hours PRN, Moderate pain (Scale 4 - 7), Starting on Yamilex 09/23/21 at 1602, Until 09/26/21 at 1601, Use as first choice before narcotics, Post-Op Given 09/23/2021 4:36 PM OBIEE REPORT DEVELOPER 15 mg lactated ringers infusion at 100 mL/hr, Intravenous, Continuous, Starting on Mon09/22/21 at 0630, Until Mon09/22/21 at 1613, Pre-OpIndications:Colostomy in place ([facility]) New Bag 09/22/2021 10:58 AM OBIEE REPORT DEVELOPER New Bag 09/22/2021 9:30 AM OBIEE REPORT DEVELOPER Restarted 09/22/2021 9:03 AM OBIEE REPORT DEVELOPER metoclopramide (REGLAN) injection 10 mg 10 mg, Intravenous, Every 6 hours PRN, Nausea, Vomiting, Starting on Mon09/22/21 at 1607, Until Mon09/27/21 at 0807, If no relief from ondansetron (Zofran), Discontinue IV Reglan once able to take PO, Post-Op Given 09/24/2021 9:49 AM OBIEE REPORT DEVELOPER 10 mg metoclopramide (REGLAN) injection 10 mg 10 mg, Intravenous, Every 6 hours, First dose (after last modification) on Mon09/27/21 at 0900, Until Discontinued, Discontinue IV Reglan once able to take PO, Post-Op Given 10/02/2021 8:25 AM OBIEE REPORT DEVELOPER 10 mg Given 10/02/2021 3:02 AM OBIEE REPORT DEVELOPER 10 mg Given 10/01/2021 9:46 PM OBIEE REPORT DEVELOPER 10 mg metoprolol tartrate (LOPRESSOR) tablet 25 mg 25 mg, Oral, 2 times daily, First dose on Mon09/26/21 at 1400, Until Discontinued Given 09/26/2021 1:56 PM OBIEE REPORT DEVELOPER 25 mg metoprolol tartrate (LOPRESSOR) tablet 50 mg 50 mg, Oral, Every 8 hours, First dose (after last modification) on Mon09/26/21 at 1900, Until Discontinued Given 10/02/2021 12:57 PM OBIEE REPORT DEVELOPER 50 mg Given 10/02/2021 3:02 AM OBIEE REPORT DEVELOPER 50 mg Given 10/01/2021 7:38 PM OBIEE REPORT DEVELOPER 50 mg metroNIDAZOLE (FLAGYL) IVPB 500 mg 500 mg, Intravenous, at 100 mL/hr, call manager, 1 dose, On Mon09/22/21 at 0630, Give within 60 minutes of surgical incision, Pre-OpIndications:Colostomy in place ([facility]) New Bag 09/22/2021 9:15 AM [employer] REPORT DEVELOPER 500 mg 100 mL/ hr ondansetron (ZOFRAN) injection 4 mg 4 mg, Intravenous, Once, 1 dose, On Mon09/22/21 at 0630, On admission, Pre-Op Given 09/22/2021 7:02 AM [employer] REPORT DEVELOPER 4 mg ondansetron (ZOFRAN) injection 4 mg 4 mg, Intravenous, Every 8 hours PRN, Nausea, Vomiting, Starting on Mon09/22/21 at 1607, Until 10/02/21 at 1701, Discontinue IV Zofran once able to take PO, Post-Op Given 09/24/2021 8:27 AM [employer] REPORT DEVELOPER 4 mg Given 09/24/2021 12:45 AM [employer] REPORT DEVELOPER 4 mg oxyCODONE-acetaminophen (PERCOCET) 5-325 MG tablet 1 tablet 1 tablet, Oral, Every 4 hours PRN, Severe pain (Scale 8 - 10), Starting on Yamilex 09/23/21 at 1200, Until 10/02/21 at 1701, Maximum dose of acetaminophen is 4000 mg from all sources in 24 hours. pantoprazole (PROTONIX) 40 mg in sodium chloride (PF) 0.9 % 10 mL IV 40 mg, Intravenous, Daily, First dose on Mon09/24/21 at 1515, Until Discontinued, Reconstitute each 40 mg vial with 10 mL normal saline to a final concentration of 4 mg/mL. Administer intravenously over a period of a least 2 minutes. Given 10/02/2021 8:25 AM [employer] REPORT DEVELOPER 40 mg Given 10/01/2021 8:05 AM [employer] REPORT DEVELOPER 40 mg Given 09/30/2021 8:41 AM [employer] REPORT DEVELOPER 40 mg phenol (CHLORASEPTIC) spray 1 spray 1 spray, Mouth/Throat, As needed, Pain, Starting on 09/25/21 at 2325, Until 10/02/21 at 1701 Given 09/28/2021 2:53 AM [employer] REPORT DEVELOPER 1 spray Given 09/26/2021 7:58 PM [employer] REPORT DEVELOPER 1 spray Given 09/25/2021 11:33 PM [employer] REPORT DEVELOPER 1 spray piperacillin-tazobactam (ZOSYN) 3.375 g in sodium chloride 0.9 % 50 mL IVPB 3.375 g, Intravenous, Administer over 30 Minutes, Once, 1 dose, On Mon09/22/21 at 1815, Administer over 30 minutes. New Bag 09/22/2021 7:13 PM OBIEE REPORT DEVELOPER 3.375 g 100 mL/hr piperacillin-tazobactam (ZOSYN) 3.375 g in sodium chloride 0.9 % 50 mL IVPB 3.375 g, Intravenous, Administer over 240 Minutes, Every 8 hours, First dose on Yamilex 09/23/21 at 0200, Until Discontinued, Administer over 4 hours (extended infusion). New Bag 09/30/2021 10:30 AM OBIEE REPORT DEVELOPER 3.375 g 12.5 mL/h r New Bag 09/30/2021 2:23 AM OBIEE REPORT DEVELOPER 3.375 g 12.5 mL/hr New Bag 09/29/2021 6:00 PM OBIEE REPORT DEVELOPER 3.375 g 12.5 mL/hr potassium chloride 10 mEq in SW 100 mL IVPB 10 mEq, Intravenous, Administer over 60 Minutes, Every hour scheduled, 1 dose, First dose on Mon09/28/21 at 1115, TOTAL DOSE 10 MEQ MAX rate in peripheral line of 10 mEq per hour. New Bag 09/28/2021 11:53 AM OBIEE REPORT DEVELOPER 10 mEq 100 mL/hr prochlorperazine (COMPAZINE) injection 10 mg 10 mg, Intravenous, Every 6 hours PRN, Nausea, Vomiting, Starting on Mon09/24/21 at 1140, Until 10/02/21 at 1701, If giving IV, administer diluted or undiluted by slow IV push at a maximum rate of 5 mg/minute. To reduce the risk of hypotension the patient must remain lying down and be observed for 30 minutes after receiving the medication. Give as needed for nausea/vomiting not relieved with ondansetron or metoclopramide Given 09/24/2021 11:51 AM OBIEE REPORT DEVELOPER 10 mg scopolamine (TRANSDERM-SCOP) 1 MG/3DAYS patch 1 patch 1 patch, Transdermal, Administer over 24 Hours, Once, 1 dose, On Mon09/22/21 at 0630, Pre-OpIndications:Colost delia in place ([facility]) Patch Applied 09/22/2021 6:50 AM OBIEE REPORT DEVELOPER 1 patch Behind Right Ear sodium chloride 0.9% bolus infusion SOLN 500 mL 500 mL, Intravenous, Administer over 60 Minutes, PRN, if urine output less than 30 mL/ hr, Starting on Mon09/22/21 at 1607, Until 10/02/21 at 1701, May repeat x 1 in first 24 hours for post-op only, Post-Op sodium chloride 0.9% infusion at 75 mL/hr, Intravenous, Continuous, Starting on Mon09/22/21 at 1630, Until Mon09/27/21 at 1534, Post-Op New Bag 09/27/2021 8:41 AM OBIEE REPORT DEVELOPER 75 mL/hr New Bag 09/26/2021 6:02 PM OBIEE REPORT DEVELOPER 75 mL/hr New Bag 09/26/2021 3:59 AM OBIEE REPORT DEVELOPER 75 mL/hr documented in this encounter Active and Recently Administered Medications Times are shown in OBIEE REPORT DEVELOPER. Scheduled Medication Order 09/30/2021 10/01/2021 10/02/2021 amLODIPine (NORVASC) tablet 5 mg 5 mg, Oral, Daily, First dose on Mon09/27/21 at 1645, Until Discontinued 0841 (Given - Provider: Ketty Palacios RN) 0804 (Given - Provider: Ketty Palacios RN) 0826 (Given - Provider: Annette Jorge RN) enoxaparin (LOVENOX) 40 MG/0.4ML syringe 40 mg(Linked Group 1) 40 mg, Subcutaneous, Every 24 hours, First dose on Yamilex 09/23/21 at 1600, Until Discontinued, Administer by deep SubQ injection alternating between the left or right anterolateral and left or right posterolateral abdominal wall., Post-Op 1544 (Given - Provider: Ketty Palacios RN) 1601 (Given - Provider: Ketty Stewart RN) 1600 (Canceled Entry - Provider: Automatic Discharge Provider - Comment: Automatically canceled at discontinue of medication order) metoclopramide (REGLAN) injection 10 mg 10 mg, Intravenous, Every 6 hours, First dose (after last modification) on Mon09/27/21 at 0900, Until Discontinued, Discontinue IV Reglan once able to take PO, Post-Op 0224 (Not Given - Provider: Jesi Torres RN - Reason: Other - Comment: taking po now)0849 (Not Given - Provider: Ketty Palacios RN - Reason: Patient/family declined)1544 (Given - Provider: Ketty Palacios RN)2013 (Given - Provider: Flor Calloway, GINA) 0318 (Given - Provider: Flor Claloway RN)0804 (Given - Provider: Ketty Palacios RN)1601 (Given - Provider: Ketty Stewart RN)2146 (Given - Provider: Joan Rios RN) 0302 (Given - Provider: Joan Rios RN)0825 (Given - Provider: Annette Jorge RN)1500 (Canceled Entry - Provider: Automatic Discharge Provider - Comment: Automatically canceled at discontinue of medication order) metoprolol tartrate (LOPRESSOR) tablet 50 mg 50 mg, Oral, Every 8 hours, First dose (after last modification) on Mon09/26/21 at 1900, Until Discontinued 0225 (Not Given - Provider: Jesi Torres RN - Reason: Other)1034 (Given - Provider: Ketty Palacios RN)1758 (Given - Provider: Lia Henderson RN) 0318 (Given - Provider: Flor Calloway RN)1141 (Given - Provider: Ketty Stewart RN)1938 (Given - Provider: Joan Rios, GINA) 0302 (Given - Provider: Joan Rios RN)1257 (Given - Provider: Annette Jorge RN - Comment: varified with MD vo to give) pantoprazole (PROTONIX) 40 mg in sodium chloride (PF) 0.9 % 10 mL IV 40 mg, Intravenous, Daily, First dose on Mon09/24/21 at 1515, Until Discontinued, Reconstitute each 40 mg vial with 10 mL normal saline to a final concentration of 4 mg/mL. Administer intravenously over a period of a least 2 minutes. 0841 (Given - Provider: Ketty Palacios RN) 0805 (Given - Provider: Ketty Palacios RN) 0825 (Given - Provider: Annette Jorge RN) piperacillin-tazobactam (ZOSYN) 3.375 g in sodium chloride 0.9 % 50 mL IVPB (CANCELED) 3.375 g, Intravenous, Administer over 240 Minutes, Every 8 hours, First dose on Yamilex 09/23/21 at 0200, Until Discontinued, Administer over 4 hours (extended infusion). 0223 (New Bag - Provider: Jesi Torres RN)0642 (Infusion Stop Time - Provider: Jesi Torres RN)1030 (New Bag - Provider: Ketty Palacios RN)1254 (Infusion Stop Time - Provider: Ketty Palacios RN) Continuous Medication Order 09/30/2021 10/01/2021 10/02/2021 dextrose 5 % and 0.45 % NaCl with KCl 40 mEq infusion (CANCELED) at 125 mL/hr, Intravenous, Continuous, Starting on 09/28/21 at 1030, Until 10/02/21 at 1052 0033 (New Bag - Provider: Jesi Torres RN)0839 (New Bag - Provider: Ketty Palacios RN)1712 (New Bag - Provider: Ketty Palacios RN) 0923 (New Bag - Provider: Ketty Palacios RN)1714 (New Bag - Provider: Ketty Stewart RN) 0035 (New Bag - Provider: Joan Rios RN) PRN Medication Order 09/30/2021 10/01/2021 10/02/2021 acetaminophen (TYLENOL) 325 MG/10.15ML solution 650 mg(Linked Group 2) 650 mg, Oral, Every 4 hours PRN, Mild pain (Scale 1 - 3), Starting on Mon09/22/21 at 1607, Until 10/02/21 at 1701, Give if unable to swallow tablets/capsules or if patient prefers liquid. Maximum dose of acetaminophen is 4000 mg from all sources in 24 hours., Post-Op diphenhydrAMINE (BENADRYL) injection 25 mg 25 mg, Intravenous, Every 6 hours PRN, Itching, Starting on Mon09/22/21 at 1550, Until 10/02/21 at 1701, For IV administration, give no faster than 25 mg/min. HYDROcodone-acetaminophen (NORCO) 5-325 MG tablet 1 tablet 1 tablet, Oral, Every 4 hours PRN, Moderate pain (Scale 4 - 7), Starting on Yamilex 09/23/21 at 1200, Until 10/02/21 at 1701, Administer as Analgesic choice number moderate., Post-Op HYDROmorphone (DILAUDID) injection 0.5 mg 0.5 mg, Intravenous, Every 2 hours PRN, Moderate pain (Scale 4 - 7), Starting on Mon09/22/21 at 1607, Until 10/02/21 at 1701, If unable to tolerate oral analgesic, Post-Op HYDROmorphone (DILAUDID) injection 1 mg 1 mg, Intravenous, Every 2 hours PRN, Severe pain (Scale 8 - 10), Starting on Mon09/22/21 at 1607, Until 10/02/21 at 1701, If unable to tolerate oral analgesic, Post-Op ondansetron (ZOFRAN) injection 4 mg 4 mg, Intravenous, Every 8 hours PRN, Nausea, Vomiting, Starting on Mon09/22/21 at 1607, Until 10/02/21 at 1701, Discontinue IV Zofran once able to take PO, Post-Op oxyCODONE-acetaminophen (PERCOCET) 5-325 MG tablet 1 tablet 1 tablet, Oral, Every 4 hours PRN, Severe pain (Scale 8 - 10), Starting on Yamilex 09/23/21 at 1200, Until 10/02/21 at 1701, Maximum dose of acetaminophen is 4000 mg from all sources in 24 hours. phenol (CHLORASEPTIC) spray 1 spray 1 spray, Mouth/Throat, As needed, Pain, Starting on Mon09/25/21 at 2325, Until 10/02/21 at 1701 prochlorperazine (COMPAZINE) injection 10 mg 10 mg, Intravenous, Every 6 hours PRN, Nausea, Vomiting, Starting on Mon09/24/21 at 1140, Until 10/02/21 at 1701, If giving IV, administer diluted or undiluted by slow IV push at a maximum rate of 5 mg/minute. To reduce the risk of hypotension the patient must remain lying down and be observed for 30 minutes after receiving the medication. Give as needed for nausea/vomiting not relieved with ondansetron or metoclopramide sodium chloride 0.9% bolus infusion SOLN 500 mL 500 mL, Intravenous, Administer over 60 Minutes, PRN, if urine output less than 30 mL/ hr, Starting on Mon09/22/21 at 1607, Until 10/02/21 at 1701, May repeat x 1 in first 24 hours for post-op only, Post-Op Linked Groups Order Group 1: enoxaparin (LOVENOX) 40 MG/0.4ML syringe 40 mgJump to med 40 mg, Subcutaneous, Every 24 hours, First dose on Yamilex 09/23/21 at 1600, Until Discontinued, Administer by deep SubQ injection alternating between the left or right anterolateral and left or right posterolateral abdominal wall., Post-Op And Moderate Risk for VTE (COMPLETED) Group 2: acetaminophen (TYLENOL) tablet 650 mg (CANCELED) 650 mg, Oral, Every 4 hours PRN, Mild pain (Scale 1 - 3), Starting on Mon09/22/21 at 1607, Until 09/24/21 at 1456, Maximum dose of acetaminophen is 4000 mg from all sources in 24 hours., Post-Op Or acetaminophen (TYLENOL) suppository 650 mg (CANCELED) 650 mg, Rectal, Every 4 hours PRN, Mild pain (Scale 1 - 3), Starting on Mon09/22/21 at 1607, Until Yamilex 09/23/21 at 0341, Give if unable to take PO. Maximum dose of acetaminophen is 4000 mg from all sources in 24 hours., Post-Op Or acetaminophen (TYLENOL) 325 MG/10.15ML solution 650 mgJump to med 650 mg, Oral, Every 4 hours PRN, Mild pain (Scale 1 - 3), Starting on Mon09/22/21 at 1607, Until 10/02/21 at 1701, Give if unable to swallow tablets/capsules or if patient prefers liquid. Maximum dose of acetaminophen is 4000 mg from all sources in 24 hours., Post-Op documented in this encounter Care Teams Compliance Spec Relationship Specialty Start Date End Date Lorie Castanon MD PCP - General INTERNAL MEDICINE 01/15/20 02/09/23 Moraima Toledo, RN [address] [place] [address] Rouge Presser (Ambulatory) REGISTERED NURSE 09/23/21 documented as of this encounter
--- OUTSIDE RECORDS SUMMARY | 2024-11-02 08:05 | XMS_ITS | Encounter Summary ---
Author Organization [facility] Address [address] [place] [address]. [place], [place] [id number] [place] [id number] Care Team Providers Care Strap Stitcher Name Role Phone Lorie Chan MD Primary Care Provider [phone] Moraima Toledo RN Unavailable [phone] Encounter Details Date Type Department Care Team (Latest Contact Info) Description 10/01/2021 Travel Social History Tobacco Use Types Packs/Day [...] on file Legal Sex Male 9:58 PM EMERGENCY MANAGER Gender Identity Not on file Sexual Orientation Not on file COVID-19 Exposure Response Date Recorded In the last month, have you been in contact with someone who was confirmed or suspected to have Coronavirus / COVID-19? No / Unsure 10/01/2021 7:57 AM EMERGENCY MANAGER documented as of this encounter Functional Status * RETIRED Are you deaf or do you have serious difficulty hearing Answer Date of Assessment Author Status No 09/22/2021 7:58 PM EMERGENCY MANAGER Activ e * RETIRED Are you blind or do you have serious difficulty seeing, even when wearing glasses? Answer Date of Assessment Author Status No 09/22/2021 7:58 PM EMERGENCY MANAGER Activ e * Do you have serious difficulty walking or climbing stairs? Answer Date of Assessment Author Status No 09/22/2021 7:58 PM EMERGENCY MANAGER Nancy Perez R N Active * Do you have difficulty dressing or bathing? Answer Date of Assessment Author Status No 09/22/2021 7:58 PM EMERGENCY MANAGER Nancy Perez R N Active * Because of a physical, mental, or emotional condition, do you have difficulty doing errands alone such as visiting a doctor's office or shopping? Answer Date of Assessment Author Status No 09/22/2021 7:58 PM EMERGENCY MANAGER Nancy Perez R N Active documented as of this encounter Mental Status * Because of a physical, mental, or emotional condition, do you have serious difficulty concentrating, remembering, or making decisions? Answer Entry Date Author Status No 09/22/2021 7:58 PM Nancy Guerrero R N Active documented in this encounter Plan of Treatment Upcoming Encounters Date Type Department Care Team (Late st Contact Info) Description 01/27/2025 7:00 AM CDT Office Visit [facility] Medical Group Family & Internal Medicine [facility] [address] [place] [address] [place] [address] [place], [place] [id number] 10/22/2025 9:15 AM EMERGENCY MANAGER Office Visit [facility] [phone] Mily Gan MD [address] [address] documented as of this encounter Goals Goal [...] on filedocumented in this encounter Care Teams Strap Stitcher Relationship Specialty Start Date End Date Lorie Chan MD PCP - General INTERNAL MEDICINE 01/15/20 02/09/23 Moraima Toledo RN [address] [place] [id number] Waiter[employer]Waitress Caf[employer] (Ambulatory) REGISTERED NURSE 09/23/21 documented as of this encounter
--- OUTSIDE RECORDS SUMMARY | 2024-11-02 08:05 | XMS_ITS | Encounter Summary ---
Author Organization [facility] Address [address] [place] [address]. [place] [address] [place] [address] Care Team Providers Care Preventative Maintenance Technician Name Role Phone Lorie Chan MD Primary Care Provider [phone] Moraima Toledo RN Unavailable [phone] Reason for Visit * Reason Onset Date Comments Hospital Follow Up 09/23/2021 Encounter Details Date Type Department Care Team (Late st Contact Info) Description 09/23/2021 Patient Outreach [facility] Medical Group Family & Internal Medicine [facility] [id number] [place] [phone] Moraima Toledo, RN [address] [place] [address] Hospital Follow Up Social History Tobacco Use Types Packs/Day Years [...] on file Legal Sex Male 9:58 PM HAND CROWN POUNCER Gender Identity Not on file Sexual Orientation Not on file COVID-19 Exposure Response Date Recorded In the last month, have you been in contact with someone who was confirmed or suspected to have Coronavirus / COVID-19? No / Unsure 09/22/2021 7:51 PM HAND CROWN POUNCER documented as of this encounter Functional Status * RETIRED Are you deaf or do you have serious difficulty hearing Answer Date of Assessment Author Status No 09/22/2021 7:58 PM HAND CROWN POUNCER Activ e * RETIRED Are you blind or do you have serious difficulty seeing, even when wearing glasses? Answer Date of Assessment Author Status No 09/22/2021 7:58 PM HAND CROWN POUNCER Activ e * Do you have serious difficulty walking or climbing stairs? Answer Date of Assessment Author Status No 09/22/2021 7:58 PM HAND CROWN POUNCER Nancy Perez R N Active * Do you have difficulty dressing or bathing? Answer Date of Assessment Author Status No 09/22/2021 7:58 PM HAND CROWN POUNCER Nancy Perez R Susan Active * Because of a physical, mental, or emotional condition, do you have difficulty doing errands alone such as visiting a doctor's office or shopping? Answer Date of Assessment Author Status No 09/22/2021 7:58 PM HAND CROWN POUNCER Nancy Perez R N Active documented as of this encounter Mental Status * Because of a physical, mental, or emotional condition, do you have serious difficulty concentrating, remembering, or making decisions? Answer Entry Date Author Status No 09/22/2021 7:58 PM HAND CROWN POUNCER Nancy Perez R N Active documented in this encounter Progress Notes * Moraima Toledo RN - 09/23/2021 8:31 AM CST Patient admitted to [facility] on 09/22/21 for Cystoscopy, bilateral ureteral catheteization. CC team willcomplete TCM call when D/C. Thank you. CROWN POUNCER * Xi Page RN - 09/23/2021 8:31 AM CST Noted thanks CROWN POUNCER documented in this encounter Plan of Treatment Upcoming Encounters Date Type Department Care Team (Late st Contact Info) Description 01/27/2025 7:00 AM CDT Office Visit [facility] Medical Group Family & Internal Medicine - [place] [address] [place] [address] [place] [address] [place], [place] [phone] 10/22/2025 9:15 AM HAND CROWN POUNCER Office Visit [facility] [address] [place] [phone] Mily Gan MD [place] [id number] [place] [address] documented as of this encounter [...] on filedocumented in this encounter Care Teams Preventative Maintenance Technician Relationship Specialty Start Date End Date Lorie Chan MD PCP - General INTERNAL MEDICINE 01/15/20 02/09/23 Moraima Toledo RN [address] [place] [address] Big Data Platform Architect (Ambulatory) REGISTERED NURSE 09/23/21 documented as of this encounter
--- OUTSIDE RECORDS SUMMARY | 2024-11-02 08:06 | XMS_ITS | Encounter Summary ---
Author Organization [facility] Address [address] [place] [address]. [place] [address] [place] [address] Care Team Providers Care Sandwich Artist Name Role Phone Lorie Chan MD Primary Care Provider [phone] Encounter Details Date Type Department Care Team (Late st Contact Info) Description 08/20/2021 Orders Only [facility] Medical Group General Surgery - [address], [address] [place] [address] Federico Mayer MD [address] [address] Social History Tobacco Use Types Packs/Day Years [...] on file Legal Sex Male 9:58 PM COST CONSULTANT Gender Identity Not on file Sexual Orientation Not on file COVID-19 Exposure Response Date Recorded In the last month, have you been in contact with someone who was confirmed or suspected to have Coronavirus / COVID-19? No / Unsure 08/20/2021 3:37 PM CDT documented as of this encounter [...] Author Status No 03/18/2021 8:35 PM CDT Polly Oliveira RN Active * Do you have difficulty dressing or bathing? Answer Date of Assessment Author Status No 03/18/2021 8:35 PM CDT Polly Oliveira RN Active * Because of a physical, mental, or emotional condition, do you have difficulty doing errands alone such as visiting a doctor's office or shopping? Answer Date of Assessment Author Status No 03/18/2021 8:35 PM CDT Polly Oliveira RN Active documented as of this encounter Mental Status * Because of a physical, mental, or emotional condition, do you have serious difficulty concentrating, remembering, or making decisions? Answer Entry Date Author Status No 03/18/2021 8:35 PM CDT Polly Oliveira RN Active documented in this encounter Plan of Treatment Upcoming Encounters Date Type Department Care Team (Late st Contact Info) Description 01/27/2025 7:00 AM CDT Office Visit [facility] Medical Group Family & Internal Medicine [facility] [id number] [place] [phone] [place] [address] [place], [place] [phone] 10/22/2025 9:15 AM COST CONSULTANT Office Visit [facility] [phone] Mily Gan MD [facility] [address] [place] [address] documented as of this encounter Goals Goal Patient Goal Type Associated Problems Recent Progress Patient-Stated? Author Establish Plan for Symptom Monitoring General Jesi Lagunas i, RN Monitor - demonstrates appropriate technique of care of indwelling urinary catheter and new ostomy General Jesi Ye RN documented as of this encounter Visit Diagnoses Not on filedocumented in this encounter Care Teams Sandwich Artist Relationship Specialty Start Date End Date Lorie Chan MD PCP - General INTERNAL MEDICINE 01/15/20 02/09/23 documented as of this encounter
--- OUTSIDE RECORDS SUMMARY | 2024-11-02 08:06 | XMS_ITS | Encounter Summary ---
Author Organization [facility] Address [address] [place] [address]. [place] [address] [place] [address] Care Team Providers Care Microsoft Dynamics Developer Name Role Phone Lorie Chan MD Primary Care Provider [phone] Reason for Visit * Auth/Cert Specialty Diagnoses / Procedures Referred By Shelby jama Referred To Contact Diagnoses colostomy in place Procedures CLOSE ENTEROSTOMY CYSTOSCOPY,INSERT URETERAL STENT LAPAROSCOPIC POSSIBLE OPEN HARTMANS REVERSAL, POSSIBLE BOWEL RESECTION Ureteral Stent Placement Referral ID Status Reason Start Date Expiration Date Visits Re quested Visits Authorized [id number] 1 1 Encounter Details Date Type Department Care Team (Late st Contact Info) Description 09/22/2021 8:51 AM GERIATRICS PHYSICIAN Anesthesia Event [facility] Surgery [address] [place] [address] Natan Paul CRNA [address] [place] [address] Meredith Villagran CRNA [address] [place] [address] Anesthesia Record Procedure Summary Procedure Name Responsible Anesthesiologist Anesthesia Start Time Anesthesia Stop Time LAPAROSCOPIC HARTMANS REVERSAL (Abdomen) Natan Paul CRNA 09/22/21 0851 09/22/21 1443 Events Date Time Event Comment 09/22/2021 0713 0713 AN DISTRICT SCOUT EXECUTIVE Prepped 0713 AN Anesthesia Prepped 0851 An Start Patient ID and consent checked and patient reassessed. 0851 An Start Data 0851 AN Immediate Reassess The pa tient was reevaluated immediately before sedation or regional anesthesia. 0856 An Induction The patient was reevaluated immediately before moderate or deep sedation use and before anesthesia induction. 0856 An Intubation 0903 Anesthesia Ready 1430 An Extubation 1443 An Stop 1443 an stop data Meds Name Total midazolam 2 mg/2 mL injection 2 mg fentaNYL (SUBLIMAZE) 100 mcg/2 mL inject ion 100 mcg ROpivacaine 0.5% injection 40 mL cloNIDine injection 100 mcg/mL (epidural ) 60 mcg lidocaine (PF) (XYLOCAINE) 1% injection 20 mg propofol (DIPRIVAN) 200 mg/20 mL injecti on 160 mg ePHEDrine injection 10 mg phenylephrine (LORNA-SYNEPHRINE) 1 mg/10 m L IV syringe 500 mcg rocuronium (ZEMURON) 50 mg/5 mL injectio n 80 mg ondansetron (ZOFRAN) 4 mg/2 mL injection 4 mg sugammadex (BRIDION) 200 mg/2 mL injecti on 150 mg lactated ringers infusion 1,900 mL * Agents Name O2 Air Inspired Sevoflurane Sevoflurane * Blood No blood administrations on file. Lines, Drains, and Airways Type Details Placement Removal Closed/Suction Drain 09/22/21; 1330; 1; Right; RLQ; Bulb; 10 Fr. 09/22/21 1330 by Dorinda Pak RN Peripheral IV Placement Date: 09/22/21; Placement Time: 0628; Placed Outside of This Facility?: No; Size: 20 G; Orientation: Posterior, Right; Location: Forearm; Site Prep: Chlorhexidine; Insertion attempts: 1; Patient Tolerance: Tolerated well; Removal Date: 10/02/21; Removal Time: 1310; Removal Reason: Patient Discharged 09/22/21 0628 by Cindy Farah RN 10/02/21 1310 by Annette Jorge RN ETT Placement Date: 09/22/21; Placement Time: 08; Placed Outside of This Facility?:No; Mask Ventilate: Prior to intubation, Easy; Size (mm) : 7.5; Endotracheal: Oral; Blade Type: MAC 4; Placement Method: Direct Laryngoscopy (blade type in comment); View Grade: 2; Viewable Anatomy: Arytenoid, Epiglottis, Vocal cords; Insertion Attempts: 1; Placement Verified By: Capnography, Auscultation, Chest Rise; Placed By: Other (Comment), DISTRICT SCOUT EXECUTIVE (SRNA); Removal Date: 09/22/21; Removal Time: 1435 09/22/21 0856 by Natan Paul CRNA 09/22/21 1435 by Natan Paul CRNA NG/OG Tube Placement Date: 09/22/21; Placement Time: 0858; Inserted By: hull outfit supervisor; Tube Type: Orogastric; Tube Size: 16 Fr.; Tube Location: Oral; Removal Date: 09/22/21; Removal Time: 141; Removal Reason: End of Case 09/22/21 0858 by Natan Paul CRNA 09/22/21 1418 by Natan Paul CRNA Osborne Catheter 09/22/21; 0911; Urol ogic Surgical intervention - Bladder, Prostate, BAGGAGE SCREENER procedures; 1; Hand hygiene performed, Site cleansed with sterile antiseptic, Sterile gloves, drape and lubricant used, Catheter inserted using aseptic technique, Osborne care post catheter insertion, Anchoring device applied, Drainage bag secured below level of bladder, Closed system maintained; Tape; Coude; 16 Fr.; Per Order 09/22/21 0911 by Dorinda Pak RN 09/23/21 0800 by Ketty Palacios RN Surgical/Incision 09/22/21; 1423; Laparoscopic Incision; Abdomen; Upper; 10 x 8 honeycomb x3 with small tegaderm covering JITENDRA drain; 10/02/21; 1656 09/22/21 1423 by Joan Rios RN 10/02/21 1656 by Automatic Discharge Provider Surgical/Incision 09/22/21; 1423; Surg ical Wound; Abdomen; Left; CASSETTE WOUND DRAINAGE VAC VERALINK NONSTERILE DISPOSABLE; 10/02/21; 1656 09/22/21 1423 by Dorinda Pak RN 10/02/21 1656 by Automatic Discharge Provider documented in this encounter Social History Tobacco [...] on file Legal Sex Male 9:58 PM GERIATRICS PHYSICIAN Gender Identity Not on file Sexual [...] or making decisions? No 10/02/2021 12:38 PM GERIATRICS PHYSICIAN Annette Jorge RN Active * Because of a physical, mental, or emotional condition, do you have serious difficulty concentrating, remembering, or making decisions? Answer Entry Date Author Status No 03/18/2021 8:35 PM AYANNAT Polly Oliveira RN Active documented in this encounter OR Notes * Anesthesia Postprocedure Evaluation - Natan Paul CRNA - 09/22/2021 4:45 PM CST Anesthesia Post-op Note Natan Patel Procedure(s): LAPAROSCOPIC HARTMANS REVERSAL (N/A Abdomen) Ureteral Stent Placement (Bilateral Bladder) Anesthesia type: general Vitals: 09/22/21 1600 BP: (!) 186/45 Vitals: 09/22/21 1600 Pulse: 83 Vitals: 09/22/21 1600 Resp: 18 Vitals: 09/22/21 1545 Temp: 36.2 ??C Vitals: 09/22/21 1600 SpO2: 97% Patient Location: PACU Level of Consciousness: awake, alert and oriented Pain Management: adequate analgesia Airway Patency: patent Respiratory Status: acceptable Cardiovascular Status: acceptable Post-Op Nausea: none Postoperative Hydration: euvolemic There were no known complications for this encounter. ATRICS PHYSICIAN * Anesthesia Procedure Notes - Natan Paul CRNA - 09/22/2021 10:42 AM GERIATRICS PHYSICIAN Associated Order(s): Peripheral Block Peripheral Nerve Block Peripheral Block Procedure Start Time: 09/22/2021 8:10 AM Procedure Stop Time: 09/22/2021 8:45 AM Patient Location During Procedure: pre-op Reason for Block: at surgeon's request and post-op pain management Preanesthetic Checklist Completed: patient identified, site marked, consent, pre-op evaluation, timeout performed, IV checked, risks and benefits discussed and monitors and equipment checked Procedure Information Patient Position: Prone Prep: Chloraprep Patient Monitoring: blood pressure, continuous pulse ox, ECG/EKG and heart rate Block Type: Erector Spinae (needle placement T7) Laterality: bilateral Injection Technique: single-shot Procedures: ultrasound guided Local Infiltration: lidocaine 1%, Dose: 3 mL Draping: sterile technique maintained Needle Needle Type: Stimuplex Needle Gauge: 22 G Needle Length: 2 in Needle Localization: anatomical landmarks and ultrasound guidance Needle Attempts: 1 Assessment Injection Assessment: incremental injection, local visualized surrounding nerve on ultrasound, negative aspiration for heme, no apparent complications, ultrasound image saved and well tolerated Paresthesia Pain: none Heart rate change: no Additional Notes See anesthesia record for medication ATRICS PHYSICIAN * Anesthesia Preprocedure Evaluation - Natan Paul CRNA - 09/03/2021 12:18 PM CDT Anesthesia ROS/MED History Reviewed: Patient summary , Nursing notes , ECG, Family history anesthesia, Anesthesia history , Medications , Labs Pre-Anesthetic State: alert, awake and responds appropriately Pulmonary (+) sleep apnea, smoker Cardiovascular (+) hyperlipidemia Neuro/Psych (+) substance use, (alcohol use) Comments: Cervical spine stenosis GI/Hepatic/Renal Comments: Dysphagia. Has had EGD 03/18/21 Sigmoidcolectomy 08/13/21 Colonoscopy 03/18/21 EKG SR, NST 80 Check K, was elevated Endo/Other (+) arthritis, (OA) Physical Evaluation Airway Mallampati: II TM Distance: >3 FB Neck ROM: normal Dental (upper dentures) Pulmonary Breath sounds clear to auscultation Cardiovascular Rhythm: regular Rate: normal Anesthesia Plan ASA 3 Intravenous Induction Anesthesia type: general Plan for Airway: ETT Informed Consent Anesthetic plan and risks discussed with patient of whom consent was obtained. Use of blood products discussed with of whom consent was obtained. . Cosigned by Federico Mayer MD at 12/06/2021 2:47 PM GERIATRICS PHYSICIAN ATRICS PHYSICIAN ATRICS PHYSICIAN Associated attestation - Federico Mayer MD - 12/06/2021 2:47 PM GERIATRICS PHYSICIAN I am certifying my agreement with the anesthesia plan of care and will be supervising the administration of anesthesia. documented in this encounter Plan of Treatment Upcoming Encounters Date Type Department Care Team (Late st Contact Info) Description 01/27/2025 7:00 AM CDT Office Visit [facility] Medical Group Family & Internal Medicine - [place] [address] [place] [address] [place] [address] [place] [address] 10/22/2025 9:15 AM GERIATRICS PHYSICIAN Office Visit [facility] [address] Mily Gan MD [address] [address] documented as of this encounter [...] Procedure Name Priority Date/Time Associated Diagnosis Comments [place] AN PERIPHERAL BLOCK SINGLE-SHOT Routine 09/22/2021 10:42 AM GERIATRICS PHYSICIAN documented in this encounter Results * AZ AN PERIPHERAL BLOCK SINGLE-SHOT (09/22/2021 10:42 AM GERIATRICS PHYSICIAN) Narrative Natan Paul CRNA - 09/22/2021 10:42 AM GERIATRICS PHYSICIAN Natan Paul CRNA ? 09/22/2021 10:49 AM Peripheral Nerve Block Peripheral Block Procedure Start Time: 09/22/2021 8:10 AM Procedure Stop Time: 09/22/2021 8:45 AM Patient Location During Procedure: pre-op Reason for Block: at surgeon's request and post-op pain management Preanesthetic Checklist Completed: patient identified, site marked, consent, pre-op evaluation, timeout performed, IV checked, risks and benefits discussed and monitors and equipment checked Procedure Information Patient Position: Prone Prep: Chloraprep Patient Monitoring: blood pressure, continuous pulse ox, ECG/EKG and heart rate Block Type: Erector Spinae (needle placement T7) Laterality: bilateral Injection Technique: single-shot Procedures: ultrasound guided Local Infiltration: lidocaine 1%, Dose: 3 mL Draping: sterile technique maintained Needle Needle Type: Stimuplex Needle Gauge: 22 G Needle Length: 2 in Needle Localization: anatomical landmarks and ultrasound guidance Needle Attempts: 1 Assessment Injection Assessment: incremental injection, local visualized surrounding nerve on ultrasound, negative aspiration for heme, no apparent complications, ultrasound image saved and well tolerated Paresthesia Pain: none Heart rate change: no Additional Notes See anesthesia record for medication us Federico Mayer MD [place] ANESTHESIA Final Result documented in this encounter Visit Diagnoses Not on filedocumented in this encounter Administered Medications Inactive Administered Medications - up to 3 most recent administrations Medication Order MAR Action Action Date Dose Rate Site cloNIDine (DURACLON) injection Regional, PRN, Starting on Mon09/22/21 at 0845, Until Mon09/22/21 at 1443, Anesthesia Intra-Op Given 09/22/2021 8:45 AM GERIATRICS PHYSICIAN 60 mcg ePHEDrine injection Intravenous, PRN, Starting on Mon09/22/21 at 1021, Until Mon09/22/21 at 1443, Anesthesia Intra-Op Given 09/22/2021 11:14 AM GERIATRICS PHYSICIAN 5 mg Given 09/22/2021 10:21 AM GERIATRICS PHYSICIAN 5 mg fentaNYL (SUBLIMAZE) injection Intravenous, PRN, Starting on Mon09/22/21 at 0852, Until Mon09/22/21 at 1443, Anesthesia Intra-Op Given 09/22/2021 9:06 AM GERIATRICS PHYSICIAN 50 mcg Given 09/22/2021 8:52 AM GERIATRICS PHYSICIAN 50 mcg lactated ringers infusion at 100 mL/hr, Intravenous, Continuous, Starting on Mon09/22/21 at 0630, Until Mon09/22/21 at 1613, Pre-OpIndications:Colostomy in place ([facility]) New Bag 09/22/2021 10:58 AM GERIATRICS PHYSICIAN New Bag 09/22/2021 9:30 AM GERIATRICS PHYSICIAN Restarted 09/22/2021 9:03 AM GERIATRICS PHYSICIAN lidocaine (PF) (XYLOCAINE) 1 % injection Intravenous, PRN, Starting on Mon09/22/21 at 0856, Until Mon09/22/21 at 1443, Anesthesia Intra-Op Given 09/22/2021 8:56 AM GERIATRICS PHYSICIAN 20 mg midazolam (VERSED) injection Intravenous, PRN, Starting on Mon09/22/21 at 0806, Until Mon09/22/21 at 1443, Anesthesia Intra-Op Given 09/22/2021 8:06 AM GERIATRICS PHYSICIAN 2 mg ondansetron (ZOFRAN) injection Intravenous, PRN, Starting on Mon09/22/21 at 1406, Until Mon09/22/21 at 1443, Anesthesia Intra-Op Given 09/22/2021 2:06 PM GERIATRICS PHYSICIAN 4 mg phenylephrine (LORNA-SYNEPHRINE) injection Intravenous, PRN, Starting on Mon09/22/21 at 0923, Until Mon09/22/21 at 1443, Anesthesia Intra-Op Given 09/22/2021 10:01 AM GERIATRICS PHYSICIAN 100 mcg Given 09/22/2021 9:53 AM GERIATRICS PHYSICIAN 100 mcg Given 09/22/2021 9:40 AM GERIATRICS PHYSICIAN 100 mcg propofol (DIPRIVAN) IV bolus Intravenous, PRN, Starting on Mon09/22/21 at 0856, Until Mon09/22/21 at 1443, Anesthesia Intra-Op Given 09/22/2021 8:56 AM GERIATRICS PHYSICIAN 160 mg rocuronium (ZEMURON) injection Intravenous, PRN, Starting on Mon09/22/21 at 0856, Until Mon09/22/21 at 1443, Anesthesia Intra-Op Given 09/22/2021 12:26 PM GERIATRICS PHYSICIAN 10 mg Given 09/22/2021 10:48 AM GERIATRICS PHYSICIAN 20 mg Given 09/22/2021 8:56 AM GERIATRICS PHYSICIAN 50 mg ropivacaine (NAROPIN) injection Infiltration, PRN, Starting on Mon09/22/21 at 0845, Until Mon09/22/21 at 1443, Anesthesia Intra-Op Given 09/22/2021 8:45 AM GERIATRICS PHYSICIAN 40 mLs sugammadex (BRIDION) injection Intravenous, PRN, Starting on Mon09/22/21 at 1416, Until Mon09/22/21 at 1443, Anesthesia Intra-Op Given 09/22/2021 2:16 PM GERIATRICS PHYSICIAN 150 mg documented in this encounter Care Teams Microsoft Dynamics Developer Relationship Specialty Start Date End Date Lorie Chan MD PCP - General INTERNAL MEDICINE 01/15/20 02/09/23 documented as of this encounter
--- OUTSIDE RECORDS SUMMARY | 2024-11-02 08:06 | XMS_ITS | Encounter Summary ---
Author Organization [facility] Address [address] [place] [address]. [place] [address] [place] [address] Care Team Providers Care Telephone Interviewer Name Role Phone Lorie Chan MD Primary Care Provider [phone] Reason for Visit * Reason Onset Date Comments Schedule Surgery 08/30/2021 Encounter Details Date Type Department Care Team (Late st Contact Info) Description 08/30/2021 Telephone [facility] Medical Group General Surgery - [place] [address] [facility], [address] [place] [address] Federico Mayer MD [address] [facility] [address] [place] [address] Schedule Surgery Social History Tobacco Use Types Packs/Day Years [...] on file 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 Patient is aware. documented in this encounter Plan of Treatment Upcoming Encounters Date Type Department Care Team (Late st Contact Info) Description 01/27/2025 7:00 AM CDT Office Visit [facility] Medical Group Family & Internal Medicine - [place] [address] [place] [address] [place] [address] [place] [address] 10/22/2025 9:15 AM ROBOTICS SPECIALIST Office Visit [facility] [address] Mily Gan MD [id number] [place] [address] documented as of this encounter Goals Goal Patient Goal Type Associated Problems Recent Progress Patient-Stated? Author Establish Plan for Symptom Monitoring General No Jesi Mixon i RN Monitor - demonstrates appropriate technique of care of indwelling urinary catheter and new ostomy General No Jesi Cochran RN documented as of this encounter Visit Diagnoses Not on filedocumented in this encounter Care Teams Telephone Interviewer Relationship Specialty Start Date End Date Lorie Chan MD PCP - General INTERNAL MEDICINE 01/15/20 02/09/23 documented as of this encounter
--- OUTSIDE RECORDS SUMMARY | 2024-11-02 08:06 | XMS_ITS | Encounter Summary ---
Author Organization [facility] Address [address] [place] [address]. [place] [address] [place] [address] Care Team Providers Care Operations Developer Name Role Phone Lorie Chan MD Primary Care Provider [phone] Reason for Referral * Surgical (Routine) - Closed Specialty Diagnoses / Procedures Referred By Shelby jama Referred To Contact SURGERY Diagnoses Colostomy status ([facility]/HCC [facility]) Neel reversal Procedures Case request operating room: reversal of Neel's(laparoscopic) [address] Reversal of Neel's procedure Margarita Sloan MD [address] [address] Phone: tel: fax: [facility] General [address], [address] [place] [phone] Phone: tel: fax: Referral ID Status Reason Start Date Expiration Date Visits Re quested Visits Authorized [id number] Closed 08/23/2021 09/23/2022 1 1 Encounter Details Date Type Department Care Team (Late st Contact Info) Description 08/23/2021 Prep for Procedure [facility] General [address], [address] [place] [address] Margarita lSoan MD [address] [place] [address] Social History Tobacco Use Types Packs/Day Years [...] on file 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 Gender Identity Not on file Sexual [...] documented in this encounter Progress Notes * Margarita Sloan MD - 08/23/2021 10:23 AM CDTAddended by: MARGARITA SLOAN on: 08/23/2021 11:30 AM Modules accepted: Orders documented in this encounter Plan of Treatment Upcoming Encounters Date Type Department Care Team (Late st Contact Info) Description 01/27/2025 7:00 AM CDT Office Visit [facility] Medical Group Family & Internal Medicine [facility] [address] [place] [address] [place] [phone] [place] [phone] 10/22/2025 9:15 AM PRINCIPAL TECHNOLOGIST Office Visit [facility] [address] Mily Gan MD [address] [phone] Scheduled Orders Name Type Priority Associated Diagnoses Orde r Schedule Case request operating room: reversal of Neel's(laparosco pic) Case Request Routine Once for 1 Occur rences starting 08/23/2021 until 08/23/2021 documented as of this encounter Goals Goal Patient Goal Type Associated Problems Recent Progress Patient-Stated? Author Establish Plan for Symptom Monitoring General No Jesi Mixon i, RN Monitor - demonstrates appropriate technique of care of indwelling urinary catheter and new ostomy General No Jesi Cochran RN documented as of this encounter Visit Diagnoses Diagnosis Colostomy in place (CMS/H[facility]/HCC)- Primary Colostomy status documented in this encounter Care Teams Operations Developer Relationship Specialty Start Date End Date Lorie Chan MD PCP - General INTERNAL MEDICINE 01/15/20 02/09/23 documented as of this encounter
--- OUTSIDE RECORDS SUMMARY | 2024-11-02 08:06 | XMS_ITS | Encounter Summary ---
Author Organization [facility] Address [address] [place] [address]. 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 Author Establish Plan for Symptom Monitoring General Jesi Lagunas i, RN Monitor - demonstrates appropriate technique of care of indwelling urinary catheter and new ostomy General Jesi Ye RN documented as of this encounter Visit Diagnoses Diagnosis Prophylactic antibiotic Encounter for long-term (current) use of antibiotics documented in this encounter Care Teams Industrial Equipment Mechanic Relationship Specialty Start Date End Date Lorie Chan MD PCP - General INTERNAL MEDICINE 01/15/20 02/09/23 documented as of this encounter
--- OUTSIDE RECORDS SUMMARY | 2024-11-02 08:06 | XMS_ITS | Encounter Summary ---
Author Organization [facility] Address [address] [place] [address]. [place] [address] [place] [address] Care Team Providers Care Environmental Services Technician Name Role Phone Lorie Castanon MD Primary Care Provider [phone] Reason for Visit * Auth/Cert Specialty Diagnoses / Procedures Referred By Shelby jama Referred To Contact Diagnoses colostomy in place Procedures CLOSE ENTEROSTOMY CYSTOSCOPY,INSERT URETERAL STENT LAPAROSCOPIC POSSIBLE OPEN HARTMANS REVERSAL, POSSIBLE BOWEL RESECTION Ureteral Stent Placement Referral ID Status Reason Start Date Expiration Date Visits Re quested Visits Authorized [id number] 1 1 Encounter Details Date Type Department Care Team (Late st Contact Info) Description 09/22/2021 7:30 AM NOVELTY B[employer]OON ASSEMBLER [employer] PACKER - 09/22/2021 12:05 PM NOVELTY B[employer] AS[employer]BLER AND PACKER Surgery [facility] [address] [place], [place] [id number] Margarita Sloan MD [address] [address] LAPAROSCOPIC HARTMANS REVERSAL Surgery Details Date/Time Status Location OR Service Patient Class Case Class Case Type Trauma Case? 09/22/2021 7:30 AM Posted [facility] OR OR 1 General Short Stay/Outpati ent Surgery No Panel 1 Procedure LRB Anes Op Region Wound Class Comments LAPAROSCOPIC HARTMANS REVERSAL N/A General Abdomen Clean Contaminated Panel 2 Procedure LRB Anes Op Region Wound Class Comments Ureteral Stent Placement Bilateral General Bladder Clean Contaminated Surgeon Surgeon Role Service Panel Margarita Sloan MD Primary General 1 Hair Peralta MD Primary Urology 2 Tiffani Moreno MD Assisting General 1 Case Notes donnie placing ureteral stents Special Needs 0600 documented in this encounter Social History Tobacco [...] on file Legal Sex Male 9:58 PM N[employer]ELTY [employer]ACKER Gender Identity Not on file Sexual Orientation Not on file COVID-19 Exposure Response Date Recorded In the last month, have you been in contact with someone who was confirmed or suspected to have Coronavirus / COVID-19? No / Unsure 09/22/2021 6:03 AM NOVELTY BALLOON ASSEM[employer]ER [employer] PACKER documented as of this encounter Last Filed Vital Signs Vital Sign Reading Time Taken Comments Blood Pressure 140/69 09/22/2021 8:04 AM NOVELTY [employer]ER Pulse 69 09/22/2021 8:04 AM NOVELTY [employer] AS[employer] PACKER Temperature 36.5 ??C (97.7 ??F) 09/22/2021 6:22 AM CS T Respiratory Rate 12 09/22/2021 8:04 AM NOVELTY [employer] PACKER Oxygen Saturation 96% 09/22/2021 8:04 AM NOVELTY [employer] AS[employer] PACKER Inhaled Oxygen Concentration - - Weight 73 kg (161 lb) 09/03/2021 8:58 AM CDT Height 170.2 cm (5' 7 ) 09/03/2021 8:58 AM CDT Body Mass Index 25.17 09/22/2021 4:43 PM NOVELTY [employer] PACKER documented in this encounter Functional Status * RETIRED Are you deaf or do you have serious difficulty hearing Answer Date of Assessment Author Status No 10/02/2021 12:38 PM NOVELTY [employer] AS[employer]ER [employer] PACKER Acti ve * RETIRED Are you blind or do you have serious difficulty seeing, even when wearing glasses? Answer Date of Assessment Author Status No 10/02/2021 12:38 PM NOVELTY [employer] ASSEM[employer]ER [employer] PACKER Aniya ve * Do you have serious difficulty walking or climbing stairs? Answer Date of Assessment Author Status No 10/02/2021 12:38 PM NOVELTY [employer] AS[employer] PACKER Annette Jorge R N Active * Do you have difficulty dressing or bathing? Answer Date of Assessment Author Status No 10/02/2021 12:38 PM NOVELTY [employer] AS[employer] PACKER Annette Jorge R N Active * Because of a physical, mental, or emotional condition, do you have difficulty doing errands alone such as visiting a doctor's office or shopping? Answer Date of Assessment Author Status No 10/02/2021 12:38 PM NOVELTY [employer]ON ASSEMBLER [employer] PACKER Annette Jorge R N Active documented as of this encounter Mental Status * Because of a physical, mental, or emotional condition, do you have serious difficulty concentrating, remembering, or making decisions? Answer Entry Date Author Status No 10/02/2021 12:38 PM NOVELTY [employer] ASSEM[employer]ER [employer] PACKER Annette Jorge R N Active documented in this encounter Discharge Summaries * Aneesh Mesa MD - 10/02/2021 9:24 AM CST Hospitalist Discharge Summary Patient ID: Mandie Cotter. male. 1955. [id number] Hospital Course: 66-year-old male presented with POD [...] during hospitalization. All plans discussed with patient/patient's family/cleaning specialist. They are agreeable with plan and voiced understanding. ?? This note was dictated with [employer] medical dictation software; misspellings, punctuation errors, omitted words??or dictation variances may occur. Admit date: 09/22/2021 6:03 AM Discharge date: 10/02/21 Admitting Physician: Lacey Barkley MD Attending Physician: Margarita Sloan MD [...] Significant Diagnostic Studies: Recent Labs Lab 09/27/21 0809/28/21 0911 09/29/21 1236 09/30/21 0740 10/01/21 0620 [...] No results for input(s): PH, PCO2, PO2, F3JBDFGCCMZX, BICARBWB, BASEDEFICIT, BASEEXCESS in the [id number] hours. Results for orders placed or performed during the hospital encounter of 03/18/21 URINALYSIS, AUTO, COMPLETE Result Value Ref Range COLOR (U) YELLOW TRANSPARENCY HAZY Specific [place] (U) 1.015 1.000 - 1.030 U PH [...] Your Medications These medications were sent to [id number] - [place], [place] - [address] [place] [address] [place], [place] [address] ?? amLODIPine 5 MG tablet ?? metoprolol [...] ANEESH MESA MD 10/02/2021 12:38 PM Inpatient LTY [employer] PACKER LTY [employer]ER [employer] P[employer]ER documented in this encounter Discharge Instructions * Discharge Instructions* Annette Jorge RN - 10/02/2021 12:39 PM NOVELTY [employer] PACKER Patient Education Ostomy Reversal Why is this [...] Be sure to include all prescription and iooj-ijg-muxdlzj (OTC) drugs, and herbal supplements. Tell the [...] right for you. Copyright Copyright ?? 2020 [employer] and its affiliates and/or licensors. All rights reserved. Wound vac ordered through [employer]. [phone]. [facility] Home Health to follow . [phone] LTY B[employer]OON ASSEMBLER AND PACKER * Additional Instructions* Annette Jorge RN - 10/02/2021 2:08 PM NOVELTY B[employer]OON ASSEMBLER AND PACKER Change wound vac drsg q Monday, , Saturdays LTY [employer] AS[employer]ER [employer] P[employer]ER documented in this encounter Medications at Time [...] this encounter Progress Notes * MICHAEL Lovett Recycle Driver - 10/02/2021 2:34 PM CST Anesthesia Record Closure: As a Chart Correction Recycle Driver, I closed the Anesthesia Record due to ageof the record. All required documentation was previously completed and signed by WRAPPER SELECTOR. * Annette Jorge RN - 10/02/2021 1:12 [...] of wound healing Outcome: Adequate for Discharge LTY [employer] ASSEM[employer] PACKER * Tiffani Moreno MD - 10/02/2021 12:32 [...] drain F/u Dr Sloan next week GABRIELLE LTY B[employer]ON ASSEMBLER AND PACKER * Evie Antony RN - 10/01/2021 3:35 PM CST INTERDISCIPLINARY CARE CONFERENCE: TEAM ATTENDANCE: CASE MANAGEMENT, UR, NURSING, PT, OT, CARDIOPULMONARY, EXECUTIVE MARKETING ASSISTANT, HOSPITALIST HOME HEALTH,PASTORAL CARE, PHARMACY Meeting held at 1100. NG removes. Full Liquid diet. 1400 wound vac ordered through [employer]. Patient picked [facility] to follow stated has used in the past . Referral sent. LTY BALLOON ASSEMBLER AND PACKER * Aneesh Mesa MD - 10/01/2021 1:16 [...] normal. Lung bases are clear, within the nqbxw-mj-fdid. ABDOMEN: 1. No free air below the [...] normal. Lung bases are clear, within the gykbj-xd-cybp. ABDOMEN: 1. No free air below the [...] bowel noted at the margin of the pzmoe-pq-yxwo Ordered By: MARGARITA SLOAN Interpreted By: Moncho Cheng, 09/24/2021 3:23 PM Results for orders placed or performed during the hospital encounter of 09/22/21 ECG 12 lead Narrative [facility] Test Date: 2021-09-24 Pat Name: MANDIE COTTER Department: Room: 109 Gender: Male Guest Relations Agent: : 1955 Requested By: PORSCHE LORD Order Number: [id number] Reading MD: Toño Lovett Measurements Intervals Calvert Rate: 93 P: 30 TN: 136 QRS: 13 QRSD: 98 T: 53 QT: 353 QTc: 439 Interpretive Statements SINUS RHYTHM Compared to ECG 03/18/2021 10:08:00 T-wave abnormality no longer present LTY [employer] PACKER ECG 12 lead Narrative [facility] Test Date: 2021-09-26 Pat Name: MANDIE COTTER Department: Room: 1091 Gender: Male Guest Relations Agent: : 1955 Requested By: LACEY BARKLEY Order Number: [id number] Reading MD: Toño Lovett Measurements Intervals Calvert Rate: 127 P: TN: 0 QRS: 9 QRSD: 91 T: 32 QT: 306 QTc: 445 Interpretive Statements ATRIAL FIBRILLATION WITH RAPID VENTRICULAR RESPONSE WITH ABERRANT CONDUCTION OR VENTRICULAR PREMATURE COMPLEXES NONSPECIFIC ST & T-WAVE ABNORMALITY ABNORMAL RHYTHM ECG Compared to ECG 09/24/2021 12:41:26 Ventricular premature complex(es) now present Aberrant conduction of supraventricular beat(s) now present T-wave abnormality now present Sinus rhythm no longer present LTY [employer] AS[employer]ER [employer] PACKER ECG [address] [facility] Test Date: 2021-09-27 Pat Name: MANDIE COTTER Department: Room: 1091 Gender: Male Guest Relations Agent: : 1955 Requested By: LACEY BARKLEY Order Number: [id number] Reading MD: Ben Diego Measurements Intervals Calvert Rate: 67 P: 5 TN: 111 QRS: 32 QRSD: 101 T: 46 QT: 392 QTc: 416 Interpretive Statements SINUS RHYTHM WITH SHORT TN INTERVAL NONSPECIFIC ST & T-WAVE ABNORMALITY Compared to ECG 09/26/2021 12:44:09 Short TN interval now present Atrial fibrillation no longer present Aberrant conduction of supraventricular beat(s) no longer present Ventricular premature complex(es) no longer present T-wave abnormality still present LTY B[employer]ON ASSEMBLER AND PACKER Assessment & Plan Length of stay (DAYS):9 Problem List Items Addressed This Visit None Visit Diagnoses Colostomy in place ([facility]) Relevant Medications acetaminophen (TYLENOL) tablet 1,000 mg [...] during hospitalization. All plans discussed with patient/patient's family/cleaning specialist. They are agreeable with plan and voiced understanding. This note was dictated with [employer] medical dictation software; misspellings, punctuation errors, omitted words or dictation variances may occur. BETZAIDA OBRIEN PA-C 10/01/2021 1:17 PM Primary care physician: LORIE CASTANON MD Extended Emergency Contact Information Primary Emergency Contact: Vaishali Cotter Mobile Relation: Spouse Preferred language: Northern Irish Six Color Press Operator needed? No Secondary Emergency Contact: ElieTata Mobile Relation: Daughter Preferred language: Northern Irish Six Color Press Operator needed? No The patient was seen and [...] colostomy reversal, diet per surgery support appreciated. LTY BALLOON ASSEMBLER AND PACKER LTY BALLOON ASSEMBLER AND PACKER LTY BALLOON ASSEMBLER AND PACKER * Tiffani Moreno MD - 10/01/2021 11:46 [...] regular diet Possible D/C in am GABRIELLE LTY BALLOON ASSEMBLER AND PACKER * Ketty Palacios RN - 10/01/2021 10:11 [...] Goal: Evidence of wound healing Outcome: Progressing LTY B[employer]OON ASSEMBLER AND PACKER * Delilah Schultz PA-C - 09/30/2021 11:31 [...] normal. Lung bases are clear, within the lollp-lc-obrf. ABDOMEN: 1. No free air below the [...] bowel noted at the margin of the wrmdm-xq-nron Ordered By: MARGARITA SLOAN Interpreted By: Moncho Cheng, 09/24/2021 3:23 PM EKG: Results for orders placed or performed during the hospital encounter of 09/22/21 ECG 12 lead Narrative [facility] Test Date: 2021-09-24 Pat Name: MANDIE COTTER Department: Room: 109 Gender: Male Guest Relations Agent: : 1955 Requested By: PORSCHE LORD Order Number: [id number] Reading MD: Toño Lovett Measurements Intervals Calvert Rate: 93 P: 30 TN: 136 QRS: 13 QRSD: 98 T: 53 QT: 353 QTc: 439 Interpretive Statements SINUS RHYTHM Compared to ECG 03/18/2021 10:08:00 T-wave abnormality no longer present LTY [employer] P[employer]ER ECG 12 lead Narrative [facility] Test Date: 2021-09-26 Pat Name: MANDIE COTTER Department: Room: 1091 Gender: Male Guest Relations Agent: : 1955 Requested By: LACEY BARKLEY Order Number: [id number] Reading MD: Toño Lovett Measurements Intervals Calvert Rate: 127 P: TN: 0 QRS: 9 QRSD: 91 T: 32 QT: 306 QTc: 445 Interpretive Statements ATRIAL FIBRILLATION WITH RAPID VENTRICULAR RESPONSE WITH ABERRANT CONDUCTION OR VENTRICULAR PREMATURE COMPLEXES NONSPECIFIC ST & T-WAVE ABNORMALITY ABNORMAL RHYTHM ECG Compared to ECG 09/24/2021 12:41:26 Ventricular premature complex(es) now present Aberrant conduction of supraventricular beat(s) now present T-wave abnormality now present Sinus rhythm no longer present LTY [employer] PACKER ECG 12 lead Narrative [facility] Test Date: 2021-09-27 Pat Name: MANDIE COTTER Department: Room: 1091 Gender: Male Guest Relations Agent: : 1955 Requested By: LACEY BARKLEY Order Number: [id number] Reading MD: Ben Diego Measurements Intervals Calvert Rate: 67 P: 5 TN: 111 QRS: 32 QRSD: 101 T: 46 QT: 392 QTc: 416 Interpretive Statements SINUS RHYTHM WITH SHORT TN INTERVAL NONSPECIFIC ST & T-WAVE ABNORMALITY Compared to ECG 09/26/2021 12:44:09 Short TN interval now present Atrial fibrillation no longer present Aberrant conduction of supraventricular beat(s) no longer present Ventricular premature complex(es) no longer present T-wave abnormality still present LTY [employer] ASSEMBLER [employer] PACKER Delilah Schultz PA-C 09/30/2021 11:31 AM Inpatient Cosigned by Aneesh Mesa MD at 09/30/2021 1:47 PM NOVELTY BALLOON ASSEMBLER AND PACKER LTY B[employer] ASSEMBLER AND PACKER LTY BALLOON ASSEMBLER AND PACKER * Tiffani Moreno MD - 09/30/2021 10:55 AM CST General Surgery Progress Notes POD # 8 Cc: c/o Frequent loose Diarrheal stools Filed Vitals: 09/29/21 1500 09/29/21200209/30/21 0404 09/30/21 0730 BP: 137/71 135/62 129/73 130/66 Pulse: 77 71 67 70 Resp: 18 18 Temp: 97.5 ??F (36.4 ??C) [...] liquid Check stool for c diff GABRIELLE LTY BALLOON ASSEMBLER AND PACKER * Ketty Palacios RN - 09/30/2021 10:17 [...] Goal: Evidence of wound healing Outcome: Progressing LTY BALLOON ASSEMBLER AND PACKER * Jesi Torres RN - 09/30/2021 5:24 [...] Goal: Evidence of wound healing Outcome: Progressing LTY BALLOON ASSEMBLER AND PACKER * Annette Jorge RN - 09/29/2021 2:42 [...] deep venous thrombosis Outcome: Met This Shift LTY BALLOON ASSEMBLER AND PACKER * Tiffani Moreno MD - 09/29/2021 12:53 PM CST General Surgery Progress Note POD #7 No complaints, continues to have BM's, Minimal output from NG tube Filed Vitals: 09/29/21 0421 09/29/21 0600 09/29/21 0700 09/29/21 1100 BP: 135/49 129/74 125/74 Pulse: 78 71 Resp: 18 22 Temp: 99.2 ??F (37.3 ??C) 98.1 [...] P) D/c NG tube Clear liquids GABRIELLE LTY BALLOON ASSEMBLER AND PACKER * Evie Antony RN - 09/29/2021 12:15 PM CST INTERDISCIPLINARY CARE CONFERENCE: TEAM ATTENDANCE: CASE MANAGEMENT, UR, NURSING, PT, OT, CARDIOPULMONARY, EXECUTIVE MARKETING ASSISTANT, HOSPITALIST HOME HEALTH,PASTORAL CARE, PHARMACY Meeting held at 1100. Nursing reports ng to have no output at this time. KUB done this AM. LTY BALLOON ASSEMBLER AND PACKER * Aneesh Mesa MD - 09/29/2021 11:51 [...] No results for input(s): PH, PCO2, PO2, A3APCBYBABXB, BICARBWB, BASEDEFICIT, BASEEXCESS in the [id number] hours. IMAGING: XR ABD KUB Result Date: 09/27/2021 IMAGING STUDIES: XR ABD KUB DATE: 09/27/2021 2:22 PM CLINICAL HISTORY: abd gastric output,abd swelling . . COMPARISON STUDIES: No previous available. FINDINGS IMPRESSION : CHEST: 1. The cardiac configuration is normal. Lung bases are clear, within the ohxwa-jv-yelc. ABDOMEN: 1. No free air below the [...] bowel noted at the margin of the xaatt-ro-zklb Ordered By: MARGARITA SLOAN Interpreted By: Moncho Cheng, 09/24/2021 3:23 PM EKG: Results for orders placed or performed during the hospital encounter of 09/22/21 ECG 12 lead Narrative [facility] Test Date: 2021-09-24 Pat Name: MANDIE COTTER Department: Room: 109 Gender: Male Guest Relations Agent: : 1955 Requested By: PORSCHE LORD Order Number: [id number] Reading MD: Toño Lovett Measurements Intervals Calvert Rate: 93 P: 30 TN: 136 QRS: 13 QRSD: 98 T: 53 QT: 353 QTc: 439 Interpretive Statements SINUS RHYTHM Compared to ECG 03/18/2021 10:08:00 T-wave abnormality no longer present LTY [employer] AS[employer]BLER [employer] PACKER ECG 12 lead Narrative [facility] Test Date: 2021-09-26 Pat Name: MANDIE [facility] Department: Room: 1091 Gender: Male Guest Relations Agent: : 1955 Requested By: LACEY BARKLEY Order Number: [id number] Reading : Toño Lovett Measurements Intervals Calvert Rate: 127 P: TN: 0 QRS: 9 QRSD: 91 T: 32 QT: 306 QTc: 445 Interpretive Statements ATRIAL FIBRILLATION WITH RAPID VENTRICULAR RESPONSE WITH ABERRANT CONDUCTION OR VENTRICULAR PREMATURE COMPLEXES NONSPECIFIC ST & T-WAVE ABNORMALITY ABNORMAL RHYTHM ECG Compared to ECG 09/24/2021 12:41:26 Ventricular premature complex(es) now present Aberrant conduction of supraventricular beat(s) now present T-wave abnormality now present Sinus rhythm no longer present LTY [employer] ASSEMBLER [employer] PACKER ECG 12 lead Narrative [facility] Test Date: 2021-09-27 Pat Name: MANDIE [facility] Department: Room: 1091 Gender: Male Guest Relations Agent: : 1955 Requested By: LACEY BARKLEY Order Number: [id number] Reading MD: Ben Diego Measurements Intervals Calvert Rate: 67 P: 5 TN: 111 QRS: 32 QRSD: 101 T: 46 QT: 392 QTc: 416 Interpretive Statements SINUS RHYTHM WITH SHORT TN INTERVAL NONSPECIFIC ST & T-WAVE ABNORMALITY Compared to ECG 09/26/2021 12:44:09 Short TN interval now present Atrial fibrillation no longer present Aberrant conduction of supraventricular beat(s) no longer present Ventricular premature complex(es) no longer present T-wave abnormality still present LTY [employer] ASSEMBLER [employer] PACKER ANEESH MESA MD 09/29/2021 11:52 AM Inpatient LTY [employer] ASSEMBLER [employer] PACKER * Evie Antony RN - 09/28/2021 2:42 PM CST INTERDISCIPLINARY CARE CONFERENCE: TEAM ATTENDANCE: CASE MANAGEMENT, UR, NURSING, PT, OT, CARDIOPULMONARY, EXECUTIVE MARKETING ASSISTANT, HOSPITALIST HOME HEALTH,PASTORAL CARE, PHARMACY Meeting held at 1100. Patient remains NPO. LTY BALLOON ASSEMBLER AND PACKER * Tiffani Moreno MD - 09/28/2021 1:45 [...] As per hospitalist KUB in am GABRIELLE LTY B[employer]OON ASSEMBLER AND PACKER * Lacey Barkley MD - 09/28/2021 10:58 [...] normal. Lung bases are clear, within the cwhzt-qr-qkkk. ABDOMEN: 1. No free air below the [...] IV Reglan KCL replacement LACEY BARKLEY MD LTY BALLOON ASSEMBLER AND PACKER * Gretel Aponte RN - 09/27/2021 10:35 [...] Goal: Evidence of wound healing Outcome: Progressing LTY BALLOON ASSEMBLER AND PACKER * Margarita Sloan MD - 09/27/2021 2:35 [...] ambulation and incentive. Margarita Sloan MD 09/27/2021 LTY BALLOON ASSEMBLER AND PACKER * Alissa Flores, RD - 09/27/2021 11:27 [...] index is 26.66 kg/m??. BMI Assessment: Normal [place] Body Weight: 148# Percent [place] Body Weight: 107% Usual Body Weight: 161# Percent Usual Body Weight: 98% Percent Weight Loss: 2% Nutrition Focused Physical Findings: no evidence of muscle or adipose tissue loss Nutrition: Current Diet Order: Diet clear liquid Appropriate Diet Comment: Patient is NPO at this time Learning needs assessed: Patient is able to understand nutritional guidelines Chewing/swallowing problems: No Food allergies/intolerances: none Cultural/Evangelical food preferences: none Current diet appropriate? Yes [...] Muscle Wasting No Fluid Accumulation No Reduced Material Handling Equipment [employer] Strength No Discharge nutrition plan: Discharge needs assessed. Will provide/update discharge instructions as needed. (See Nutrition Prescription above) ALISSA FLORES RD 09/27/21, 11:27 AM LTY BALLOON ASSEMBLER AND PACKER * Aliya Moreno RN - 09/27/2021 11:22 AM CST [facility] for discharge planning @1100 with HOSPITALIST, BUSINESS EXCELLENCE LEADER, CM, UR, PASTORAL CARE, PHARMACY, CARDIOPULMONARY, EXECUTIVE MARKETING ASSISTANT, HH. Advance diet to clear liquid NG tube [place] to follow surgically Denies need for HH at this time. LTY BALLOON ASSEMBLER AND PACKER * Lacey Barkley MD - 09/27/2021 10:58 AM CST Hospital Daily Progress Note History Complains of incisional soreness Physical Exam Filed Vitals: 09/26/21 2352 09/27/21 0247 09/27/21 0409 09/27/21 0718 BP: 120/64 140/66 128/70 Pulse: 92 78 74 106 Resp: Temp: 97.6 ??F (36.4 ??C) 97.5 ??F [...] if approved by Surgery. LACEY BARKLEY MD LTY BALLOON ASSEMBLER AND PACKER * Rose Marie Starr RN - 09/26/2021 [...] Goal: Evidence of wound healing Outcome: Progressing LTY BALLOON ASSEMBLER AND PACKER * Margarita Sloan MD - 09/26/2021 2:43 [...] bowel noted at the margin of the wrfds-yb-ntwe Ordered By: MARGARITA SLOAN Interpreted By: Moncho Cheng, 09/24/2021 3:23 PM Assessment: Mandie Cotter is a 66-year-old male status post laparoscopic reversal of Hudson's procedure. Plan: Patient was in A. fib and was started on p.o. metoprolol. Okay for sips of clears with intermittent NG tube suction. Continue current medical management. Reassess NG tube output tomorrow. Margarita Sloan MD 09/26/2021 LTY BALLOON ASSEMBLER AND PACKER * Lacey Barkley MD - 09/26/2021 1:33 PM CST Patient noted to be tachycardia with irregular rhythm. EKG revealed a.fib RVR. Recheck of HR in 80's. Cancelled IV cardizem and began metoprolol 25 mg po BID. Placed on telemetry. LTY BALLOON ASSEMBLER AND PACKER * Lacey Barkley MD - 09/26/2021 11:34 [...] bowel noted at the margin of the ngshr-sq-vwxo Ordered By: MARGARITA SLOAN Interpreted By: Moncho [...] on NGT removal EKG LACEY BARKLEY MD LTY B[employer]OON ASSEMBLER AND PACKER * Dulce Nguyen LPN - 09/25/2021 10:49 [...] Goal: Evidence of wound healing Outcome: Progressing LTY BALLOON ASSEMBLER AND PACKER * Margarita Sloan MD - 09/25/2021 4:25 PM CST Mandie Cotter 09/25/2021 Subjective Patient without complaints. Denies any [...] bowel noted at the margin of the qgbte-le-xlmg Ordered By: MARGARITA SLOAN Interpreted By: Moncho [...] change on Monday. Margarita Sloan MD 09/25/2021 LTY BALLOON ASSEMBLER AND PACKER * Lacey Barkley MD - 09/25/2021 12:14 [...] bowel noted at the margin of the sfjhk-ea-cqoy Ordered By: MARGARITA SLOAN Interpreted By: Moncho [...] now Continue to ambulate LACEY BARKLEY MD LTY B[employer] ASSEMBLER AND PACKER * Evie Antony RN - 09/24/2021 3:10 PM CST INTERDISCIPLINARY CARE CONFERENCE: TEAM ATTENDANCE: CASE MANAGEMENT, UR, NURSING, PT, OT, CARDIOPULMONARY, EXECUTIVE MARKETING ASSISTANT, HOSPITALIST HOME HEALTH,PASTORAL CARE, PHARMACY Meeting held at 1100. Remains NPO. Nursing reports patient to have had an emesis this morning. Willcontinue to monitor. LTY BALLOON ASSEMBLER AND PACKER * Margarita Sloan MD - 09/24/2021 2:07 PM CST Mandie Browne Amanda 09/24/2021 Subjective Patient did have some emesis [...] Min: 0 L/min Min taken time: 09/24/21 07 Max: 0 L/min Max taken time: 09/24/21 [...] advancement of diet. Margarita Sloan MD 09/24/2021 LTY B[employer] ASSEM[employer]ER AND PACKER * Porsche Lord, BETTY - 09/24/2021 10:03 AM CST Hospitalist Progress [...] Lacey Barkley MD at 09/24/2021 4:35 PM NOVELTY BALLOON ASSEMBLER AND PACKER LTY BALLOON ASSEMBLER AND PACKER LTY BALLOON ASSEMBLER AND PACKER Associated attestation - Lacey Barkley MD - 09/24/2021 4:35 PM NOVELTY BALLOON ASSEMBLER AND PACKER I, LACEY BARKLEY MD, performed an examination [...] Goal: Evidence of wound healing Outcome: Progressing LTY BALLOON ASSEMBLER AND PACKER * Margarita Sloan MD - 09/23/2021 1:30 PM CST Mandie Browne Amanda 09/23/2021 Subjective Patient seen at 7:30 AM [...] a 66-year-old male postop day 1 reversal Hduson's. Doing relatively well. Plan: Sips of clear liquid diet this evening. Monitor urine output. Await bowel function to advancediet. Continue medical management, labs a.m. Ambulation, DVT prophylaxis, incentive. Margarita Sloan MD 09/23/2021 LTY B[employer]OON ASSEMBLER AND PACKER * Lois Gilliland, PT - 09/23/2021 1:01 [...] biopsy performed by Margarita Sloan MD at [facility] OR ??? COLOSTOMY reversable ??? HERNIA REPAIR Right [facility] ??? HERNIA REPAIR Left [facility] ??? NECK/CHEST PROCEDURE UNLISTED Right [facility], re-built right side of neck. ??? SMALL INTESTINE SURGERY bowel rupture ??? TOTAL KNEE ARTHROPLASTY Bilateral ZANA Partial KR, done @ [facility] No current outpatient medications on file. [...] Home Accessibility 2-4 Steps to enter (4 TWAN ) Prior Function Level of [place] Independent with ADLs;Independent with functional transfers;Independent with [...] the session with patient seated in recliner. LTY BALLOON ASSEMBLER AND PACKER * Libby Paul, OT - 09/23/2021 12:41 [...] spouse when OK medically. No training needed. LTY BALL[employer]ON ASSEMBLER [employer] PACKER * Alissa Flores, RD - 09/23/2021 11:57 AM CST Dietitian Nutrition Assessment Mandie Cotter, [...] index is 24.96 kg/m??. BMI Assessment: Normal [place] Body Weight: 148# Percent [place] Body Weight: 107% Usual Body Weight: 161# Percent Usual Body Weight: 98% Percent Weight Loss: 2% Nutrition Focused Physical Findings: no evidence of muscle or adipose tissue loss Nutrition: Current Diet Order: Diet NPO effective now Diet Comment: Patient is NPO at this time Learning needs assessed: Patient is able to understand nutritional guidelines Chewing/swallowing problems: No Food allergies/intolerances: none Cultural/Evangelical food preferences: none Current diet appropriate? Yes [...] Muscle Wasting No Fluid Accumulation No Reduced Material Handling Equipment [employer] Strength No Discharge nutrition plan: Discharge needs assessed. Will provide/update discharge instructions as needed. (See Nutrition Prescription above) ALISSA FLORES RD 09/23/21, 11:57 AM LTY BALLOON ASSEMBLER [employer] PACKER * Aliya Moreno RN - 09/23/2021 11:27 AM CST [facility] for discharge planning @1100 with HOSPITALIST, BUSINESS EXCELLENCE LEADER, CM, UR, PASTORAL CARE, PHARMACY, CARDIOPULMONARY, EXECUTIVE MARKETING ASSISTANT, HH. NPO - advance to sips of clear liquids at 1600 today [place] following surgically PT eval DC Osborne Expect 2-3 more days LTY BALLOON ASSEMBLER [employer] PACKER * Aliya Moreno RN - 09/23/2021 9:05 AM CST 09/23/21 0859 Referral Data Referral Reason Discharge Planning Source of Information Patient Patient Information Primary Caregiver Self Support System Immediate family (daughter, son and sister live in [place]) Baseline ADL's Functional Status Independent (patient drives) Living Arrangements Spouse/significant other Type of Residence Private residence (2 story with a basement; all living areas are on the main floor) Ambulation Assistance No Active DME (SHANTI - Hannahs Elliott) Bathing/Grooming Assistance No Dressing Assistance No Behavior Oriented;Cooperative Communication Talks;Understands speaking;Understands Northern [place] Socioeconomic Needs Caregiver Needed No At Risk [...] of major lifestyle changes, including change in detention living environment No Family concerns/conflicts No Inadequate social and/or financial supports No Abuse and/or neglect of elder, adult or child No Psychiatric and/or substance abuse issues affecting current hospitalization No Homelessness with lack of safe discharge environment No Need for guardianship petition No Chaptered patient No [place] Only - Criminal Background check [place] only - Is patient going to care home? No Spoke with patient and in room. Discussed home health services with patient. Patient denies the need for home health services. LTY B[employer] ASSEMBLER [employer] PACKER documented in this encounter H&P Notes * Margarita Solan MD - 09/22/2021 7:52 AM CST Reason [...] Rfl: ??? Cholecalciferol (VITAMIN D) 50 MCG (1999 [place]) Cap, Take 25 mcg by mouth [...] biopsy performed by Margarita Sloan MD at [facility] OR ??? COLOSTOMY ? reversable ??? HERNIA REPAIR Right [facility] ??? HERNIA REPAIR Left ? [facility] ??? NECK/CHEST PROCEDURE UNLISTED Right ? [facility], re-built right side of neck. ??? SMALL INTESTINE SURGERY ? bowel rupture ??? TOTAL KNEE ARTHROPLASTY Bilateral ? ZANA Partial KR, done @ [facility] ? Social History ?? Tobacco Use ??? [...] kg/m??. ?? Diagnoses/Impression: 1. Colostomy in place ([facility]) ? Recommendations and Plan: Mandie Cotter is [...] coordinationof care. ?? Margarita Sloan MD ?? LTY B[employer] ASSEMBLER [employer] PACKER documented in this encounter Consult Notes * [...] hyperlipidemia, RANDY. He is seen postoperatively and r eports to feeling well. He tells me his pain is controlled at rest but rapidly becomes a 10/10 whenhe sits up. He is not nauseous. No [...] biopsy performed by Margarita Sloan MD at [facility] OR ??? COLOSTOMY reversable ??? HERNIA REPAIR Right [facility] ??? HERNIA REPAIR Left [facility] ??? NECK/CHEST PROCEDURE UNLISTED Right [facility], re-built right side of neck. ??? SMALL INTESTINE SURGERY bowel rupture ??? TOTAL KNEE ARTHROPLASTY Bilateral ZANA Partial KR, done @ [facility] Medications Prior to Admission Medication Sig [...] Cholecalciferol (VITAMIN D) 50 MCG (1999 [place]) Cap Take 25 mcg by mouth [...] Lacey Barkley MD at 09/23/2021 3:53 PM NOVELTY B[employer]OON ASSEMBLER AND PACKER LTY BALLOON ASSEMBLER AND PACKER LTY BALLOON ASSEMBLER AND PACKER Associated attestation - Lacey Barkley MD - 09/23/2021 3:53 PM NOVELTY B[employer]OON ASSEMBLER AND PACKER I, LACEY BARKLEY MD, performed a Consultation [...] - 09/22/2021 7:10 AM CST [facility] Inpatient Consult Note Encounter Date: 09/22/2021 Patient [...] biopsy performed by Margarita Sloan MD at [facility] OR ??? COLOSTOMY reversable ??? HERNIA REPAIR Right [facility] ??? HERNIA REPAIR Left [facility] ??? NECK/CHEST PROCEDURE UNLISTED Right [facility], re-built right side of neck. ??? SMALL INTESTINE SURGERY bowel rupture ??? TOTAL KNEE ARTHROPLASTY Bilateral ZANA Partial KR, done @ [facility] Social History Socioeconomic History ??? Marital [...] Oral Once ??? ceFAZolin 2 g Intravenous Water Valve Repairer ??? ceFAZolin 2 g Intravenous Water Valve Repairer ??? celecoxib 200 mg Oral Once ??? heparin (porcine) 5,000 Units Subcutaneous See Admin Instructions ??? metroNIDAZOLE 500 mg Intravenous Q8H ??? metroNIDAZOLE 500 mg Intravenous Water Valve Repairer ??? scopolamine 1 patch Transdermal Once ?? [...] in consultation. -------- HAIR PERALTA MD [facility] [id number] LTY B[employer] ASSEMBLER [employer] PACKER documented in this encounter OR Notes * Op Note - Margarita Sloan MD - 09/22/2021 3:39 PM CST General Surgery Operative Note Patient name: Mandie Cotter Date of : 1955 Date of Surgery: 09/22/2021 Surgeon: Margarita Sloan MD Cosmetic Chemist: Mailroom Supervisor: Savannah Brush, FINISHING ROOM [facility]PERATORMayo [facility] Nurse 1: Dorinda Pak, GINA Scrub Person 1: Ezio Jiang, GINA Scrub Person 2: Cyn Burleson, GINA Moreno MD (no qualified cutter first for performance of the anastomosis) Pre-Op Diagnosis: colostomy in place Post-Op Diagnosis: Same Procedure: Reversal of Hudson's colostomy, bowel resection with end-to-end anastomosis (spy ICG tocheck anastomosis), splenic flexure mobilization, flexible sigmoidoscopy, VAC placement. Anesthesia Type: General Anesthesia Team: WRAPPER SELECTOR: Mandie Paul CRNA EBL: Minimal Complications: None [...] At this time, there was no qualified rn first assistant to help with the anastomosis and [...] there were 2 complete donuts. A 15 Urdu Easton-Srinivasan drain was then placed in the [...] a running looped 0 PDS with interspersed [id number] #1 nylon. Closure was noted to be [...] anastomosis portion of the procedure (no qualified rn first assistant) Margarita Sloan MD 09/22/2021 LTY BALLOON ASSEMBLER AND PACKER LTY BALLOON ASSEMBLER AND PACKER LTY BALLOON ASSEMBLER AND PACKER LTY BALLOON ASSEMBLER AND PACKER * Op Note - Hair Peralta MD - 09/22/2021 9:25 AM CST Urologic Surgery Operative Note Mandie Cotter [id number] 1955 09/22/21 Preoperative Diagnosis: Diverticulitis Postoperative Diagnosis: [...] of urine. 5F whistle-tip catheters were place ineach ureter and advanced to the kidneys without difficulty. An 18F Osborne catheter was placed and the ureteral catheters were fixed to the Osborne catheter with silk ties. The patient tolerated this aspect of the procedure well. Disposition: To PACU in stable condition I, HAIR PERALTA MD was present for and performed the entire procedure. LTY BALLOON ASSEMBLER AND PACKER documented in this encounter Plan of Treatment Upcoming Encounters Date Type Department Care Team (Late st Contact Info) Description 01/27/2025 7:00 AM CDT Office Visit [facility] Family & Internal Medicine [facility] [address] [place] [address] [place] [address] [place] [address] 10/22/2025 9:15 AM NOVELTY B[employer]OON ASSEMBLER AND PACKER Office Visit [facility] [id number] Mily Gan MD [address] [address] documented as of this encounter Goals Goal Patient Goal Type Associated Problems Recent Progress Patient-Stated? Author Establish Plan for Symptom Monitoring General No Apurva amaya, Jesi Mckee, RN Monitor - demonstrates appropriate technique of care of indwelling urinary catheter and new ostomy General Jesi Ye RN documented as of this encounter Procedures Procedure Name Priority Date/Time Associated Diagnosis Comments COMPREHENSIVE METABOLIC PANEL Routine 10/02/2021 8:54 AM N[employer]EL[employer] PACKER CBC W/DIFF AUTOMATED Routine 10/02/2021 8:54 AM N[employer] PACKER XR ABD KUB Today 10/01/2021 8:39 AM N[employer]EL[employer] PACKER COMPREHENSIVE METABOLIC PANEL Routine 10/01/2021 6:20 AM N[employer] PACKER CBC W/DIFF AUTOMATED Routine 10/01/2021 6:20 AM N[employer] PACKER MAGNESIUM Routine 10/01/2021 6:20 AM NOVELTY [employer] AS[employer]ER [employer] PACKER HC EIA QL CLOS DIFF TOXIN AG STAT 09/30/2021 4:04 PM NOVELTY B[employer]OON ASSEMBLER AND PACKER COMPREHENSIVE METABOLIC PANEL Routine 09/30/2021 7:40 AM NOVELTY [employer] AS[employer] AND PACKER CBC W/DIFF AUTOMATED Routine 09/30/2021 7:40 AM N[employer]EL[employer] AND PACKER COMPREHENSIVE METABOLIC PANEL Routine 09/29/2021 12:36 PM NOVELTY BALLOON ASSEMBLER AND PACKER CBC W/DIFF AUTOMATED Routine 09/29/2021 12:36 PM NOVELTY BALLOON ASSEMBLER AND PACKER XR ABD KUB Today 09/29/2021 8:59 AM NOVELTY [employer]OON ASSEMBLER AND PACKER POTASSIUM, SERUM STAT 09/28/2021 6:50 PM NOVELTY BALLOON ASSEMBLER AND PACKER COMPREHENSIVE METABOLIC PANEL Routine 09/28/2021 9:11 AM NOVELTY [employer]ALLOON ASSEMBLER AND PACKER CBC W/DIFF AUTOMATED Routine 09/28/2021 9:11 AM NOVELTY [employer]OON ASSEMBLER AND PACKER USE ECHOCARDIOGRAM Today 09/27/2021 2: 34 PM NOVELTY B[employer]OON ASSEMBLER AND PACKER XR ABD KUB Today 09/27/2021 2:27 PM NOVELTY BALLOON ASSEMBLER AND PACKER ECG 12-LEAD Routine 09/27/2021 1:42 PM NOVELTY [employer]OON ASSEMBLER AND PACKER COMPREHENSIVE METABOLIC PANEL Routine 09/27/2021 8:27 AM NOVELTY [employer] AND PACKER CBC W/DIFF AUTOMATED Routine 09/27/2021 8:27 AM N[employer]EL[employer] AND PACKER ECG 12-LEAD Routine 09/26/2021 12:44 PM NOVELTY BALLOON ASSEMBLER AND PACKER COMPREHENSIVE METABOLIC PANEL Routine 09/25/2021 6:40 AM NOVELTY BALLOON ASSEMBLER AND PACKER CBC W/DIFF AUTOMATED Routine 09/25/2021 6:40 AM NOVELTY B[employer]OON ASSEMBLER AND PACKER XR CHEST PORTABLE Routine 09/24/2021 3:1 9 PM NOVELTY BALLOON ASSEMBLER AND PACKER HC OCCULT BLOOD GASTRIC Routine 09/24/2021 3:00 PM NOVELTY B[employer]OON ASSEMBLER AND PACKER ECG 12-LEAD Routine 09/24/2021 12:41 PM NOVELTY BALLOON ASSEMBLER AND PACKER COMPREHENSIVE METABOLIC PANEL Routine 09/24/2021 6:08 AM NOVELTY BALLOON ASSEMBLER AND PACKER CBC W/DIFF AUTOMATED Routine 09/24/2021 6:08 AM NOVELTY [employer]ALLO[employer] ASSEMBLER AND PACKER COMPREHENSIVE METABOLIC PANEL Routine 09/23/2021 5:45 AM NOVELTY B[employer]OON ASSEMBLER AND PACKER CBC W/DIFF AUTOMATED Routine 09/23/2021 5:45 AM N[employer]EL[employer] AS[employer] PACKER CYSTOSCOPY,INSERT URETERAL STENT 09/22/2021 8:32 AM NOVELTY B[employer] AS[employer] PACKER colostomy in place Case Notes parres placing ureteral stents Special Needs 0600 CLOSE ENTEROSTOMY 09/22/2021 8:3 2 AM N[employer]EL[employer]ACKER colostomy in place Case Notes parres placing ureteral stents Special Needs 0600 TYPE & SCREEN Routine 09/22/2021 6:30 AM NOVELTY B[employer] AS[employer] AND PACKER Colostomy in place (CMS/HCC HHS/HCC) PATHOLOGY Routine 09/22/2021 12:00 AM NOVELTY BALLOON AS[employer]BLER AND PACKER documented in this encounter Results * (ABNORMAL) CBC W/DIFF AUTOMATED (10/02/2021 8:54 AM [facility]) [facility] Signature WBC 5.6 4.4 - 11.0 x10'3/uL 10/02/2021 9:33 AM [facility] RBC 3.98(L) 4.50 - 5.90 x10'6/uL 10/02/2021 9:33 AM [facility] HGB 12.7(L) 14.0 - 17.5 G/DL 10/02/2021 9:33 AM [facility] HCT 39.1(L) 41.5 - 50.4 % 10/02/2021 9:33 AM [facility] MCV 98.2(H) 80.0 - 96.0 FL 10/02/2021 9:33 AM [facility] MCH 31.9(H) 26.5 - 31.4 PG 10/02/2021 9:33 AM [facility] MCHC 32.5 31.9 - 34.8 G/DL 10/02/2021 9:33 AM [facility] RDW 13.1 12.3 - 14.3 % 10/02/2021 9:33 AM [facility] PLT 382(H) 151 - 353 x10'3/uL 10/02/2021 9:33 AM [facility] MPV 10.8 9.7 - 11.9 FL 10/02/2021 9:33 AM [facility] RBC MORPHOLOGY NORMAL 10/02/2021 9:33 AM [facility] PLT MORPH. NORMAL 10/02/2021 9:33 AM [facility] WBC MORPHOLOGY NORMAL 10/02/2021 9:33 AM [facility] LYMPHOCYTES % 27.2 15.8 - 45.0 % 10/02/2021 9:33 AM [facility] NEUTROPHILS % 61.1 42.1 - 71.9 % 10/02/2021 9:33 AM [facility] MONOCYTES % 9.2 5.7 - 12.5 % 10/02/2021 9:33 AM [facility] EOSINOPHILS 1.4 0.0 - 5.6 % 10/02/2021 9:33 AM [facility] BASOPHILS 0.7 0.0 - 1.3 % 10/02/2021 9:33 AM [facility] ABS. NEUTROPHILS 3.44 1.40 - 6.00 x10'3/uL 10/02/2021 9:33 AM [facility] IMMATURE GRANS % 0.4 0.0 - 0.5 % 10/02/2021 9:33 AM [facility] ABS. LYMPHOCYTES 1.53 0.80 - 4.70 x10'3/uL 10/02/2021 9:33 AM [facility] 10/02/2021 8:54 AM NOVELTY B[employer]OON ASSEMBLER AND PACKER Delilah Schultz PA-C LABORATORY Final Result [facility] [address] [place] [address], * (ABNORMAL) COMPREHENSIVE METABOLIC PANEL (10/02/2021 8:54 AM NOVELTY BALLOON ASSEMBLER AND PACKER) GLUCOSE 121(H) 70 - 99 MG/DL 10/02/2021 9:57 AM [facility] BUN 5(L) 7 - 18 MG/DL 10/02/2021 9:57 AM [facility] CREATININE S/P/B 0.80 0.7 - 1.3 MG/DL 10/02/2021 9:57 AM [facility] SODIUM S/P/B 140 136 - 145 MMOL/L 10/02/2021 9:57 AM [facility] POTASSIUM S/P/B 4.5 3.5 - 5.1 MMOL/L 10/02/2021 9:57 AM [facility] CHLORIDE S/P/B 105 100 - 108 MMOL/L 10/02/2021 9:57 AM [facility] CO2 29.2 21 - 32 MMOL/L 10/02/2021 9:57 AM [facility] CALCIUM S/P/B 8.4(L) 8.5 - 10.1 MG/DL 10/02/2021 9:57 AM [facility] BILIRUBIN TOTAL S/P/B 0.6 0.2 - 1.2 MG/DL 10/02/2021 9:57 AM [facility] TOTAL PROTEIN S/P/B 6.8 6.4 - 8.2 G/DL 10/02/2021 9:57 AM [facility] ALBUMIN S/P/B 3.0(L) 3.4 - 5.0 G/DL 10/02/2021 9:57 AM [facility] AST 24 15 - 37 U/L 10/02/2021 9:57 AM [facility] ALT 50 16 - 60 U/L 10/02/2021 9:57 AM [facility] ALKALINE PHOSPHATASE S/P/B 36(L) 50 - 136 U/L 10/02/2021 9:57 AM [facility] ANION GAP 5.8 5 - 15 MMOL/L 10/02/2021 9:57 AM [facility] BUN CREATININE RATIO 6.2 6 - 26 10/02/2021 9:57 AM N[employer]EL[employer] AS[employer] PACKER [facility] A/G RATIO 0.8(L) 1.0 - 2.0 RATIO 10/02/2021 9:57 AM NOVELTY BALLOON ASSEMBLER AND PACKER [facility] EGFR NON-AFR. AMER. >90 >90 ML/MIN/1.7 3 M2 10/02/2021 9:57 AM NOVELTY BALLOON ASSEMBLER AND PACKER [facility] EGFR AFR. AMER. >90 >90 ML/MIN/1.7 3 M2 10/02/2021 9:57 AM [facility] Comment: NOTE: eGFR is not calculated for patients <18 years of age. This is an estimated GFR (CKD EPI) and should not be used for calculating drug doses. 10/02/2021 8:54 AM NOVELTY BALLOON ASSEMBLER AND PACKER Delilah Schultz PA-C LABORATORY Final Result [facility] [address] [place] [address], * XR ABD KUB (10/01/2021 8:39 AM NOVELTY BALLOON ASSEMBLER AND PACKER) Anatomical Region Laterality Modality Abdomen Radiographic Leola ging 10/01/2021 9:03 AM N[employer]ELTY [employer] PACKER Impressions 10/01/2021 9:24 AM NOVELTY BALLOON ASSEMBLER AND PACKER IMPRESSION: 1. ??Improved air-filled small bowel loops [...] 10/01/2021 9:03 AM Narrative 10/01/2021 9:24 AM NOVELTY BALLOON ASSEMBLER AND PACKER IMAGING STUDIES: ??XR ABD KUB ? DATE: [...] Final Result * MAGNESIUM (10/01/2021 6:20 AM NOVELTY BALLOON ASSEMBLER AND PACKER) MAGNESIUM 2.0 1.8 - 2.4 MG/DL 10/01/2021 11:27 AM NOVELTY BALLOON ASSEMBLER AND PACKER [facility] 10/01/2021 6:20 AM NOVELTY B[employer]OON ASSEMBLER AND PACKER Betzaida Obrien PA-C LABORATORY Final Result [facility] [address] [place] [address], [place] [phone] * (ABNORMAL) CBC W/DIFF AUTOMATED (10/01/2021 6:20 AM N[employer]ELTY [employer] AS[employer]BLER AND PACKER) [facility] Signature WBC 5.6 4.4 - 11.0 x10'3/uL 10/01/2021 6:50 AM [facility] RBC 4.03(L) 4.50 - 5.90 x10'6/uL 10/01/2021 6:50 AM [facility] HGB 12.8(L) 14.0 - 17.5 G/DL 10/01/2021 6:50 AM [facility] HCT 38.9(L) 41.5 - 50.4 % 10/01/2021 6:50 AM [facility] MCV 96.5(H) 80.0 - 96.0 FL 10/01/2021 6:50 AM [facility] MCH 31.8(H) 26.5 - 31.4 PG 10/01/2021 6:50 AM [facility] MCHC 32.9 31.9 - 34.8 G/DL 10/01/2021 6:50 AM [facility] RDW 13.2 12.3 - 14.3 % 10/01/2021 6:50 AM [facility] PLT 353 151 - 353 x10'3/uL 10/01/2021 6:50 AM [facility] MPV 10.3 9.7 - 11.9 FL 10/01/2021 6:50 AM [facility] RBC MORPHOLOGY NORMAL 10/01/2021 6:50 AM [facility] PLT MORPH. NORMAL 10/01/2021 6:50 AM [facility] WBC MORPHOLOGY NORMAL 10/01/2021 6:50 AM [facility] LYMPHOCYTES % 26.0 15.8 - 45.0 % 10/01/2021 6:50 AM [facility] NEUTROPHILS % 59.6 42.1 - 71.9 % 10/01/2021 6:50 AM [facility] MONOCYTES % 11.2 5.7 - 12.5 % 10/01/2021 6:50 AM [facility] EOSINOPHILS 2.1 0.0 - 5.6 % 10/01/2021 6:50 AM [facility] BASOPHILS 0.7 0.0 - 1.3 % 10/01/2021 6:50 AM [facility] ABS. NEUTROPHILS 3.35 1.40 - 6.00 x10'3/uL 10/01/2021 6:50 AM [facility] IMMATURE GRANS % 0.4 0.0 - 0.5 % 10/01/2021 6:50 AM [facility] ABS. LYMPHOCYTES 1.46 0.80 - 4.70 x10'3/uL 10/01/2021 6:50 AM [facility] 10/01/2021 6:20 AM [employer]ER Delilah Schultz PA-C LABORATORY Final Result [facility] [address] [place] [id number], * (ABNORMAL) COMPREHENSIVE METABOLIC PANEL (10/01/2021 6:20 AM N[employer]) GLUCOSE 107(H) 70 - 99 MG/DL 10/01/2021 7:05 AM [facility] BUN 2(L) 7 - 18 MG/DL 10/01/2021 7:05 AM [facility] CREATININE S/P/B 0.73 0.7 - 1.3 MG/DL 10/01/2021 7:05 AM [facility] SODIUM S/P/B 139 136 - 145 MMOL/L 10/01/2021 7:05 AM [facility] POTASSIUM S/P/B 4.5 3.5 - 5.1 MMOL/L 10/01/2021 7:05 AM [facility] CHLORIDE S/P/B 106 100 - 108 MMOL/L 10/01/2021 7:05 AM [facility] CO2 30.0 21 - 32 MMOL/L 10/01/2021 7:05 AM [facility] CALCIUM S/P/B 8.5 8.5 - 10.1 MG/DL 10/01/2021 7:05 AM [facility] BILIRUBIN TOTAL S/P/B 0.6 0.2 - 1.2 MG/DL 10/01/2021 7:05 AM [facility] TOTAL PROTEIN S/P/B 6.5 6.4 - 8.2 G/DL 10/01/2021 7:05 AM [facility] ALBUMIN S/P/B 2.9(L) 3.4 - 5.0 G/DL 10/01/2021 7:05 AM [facility] AST 29 15 - 37 U/L 10/01/2021 7:05 AM [facility] ALT 60 16 - 60 U/L 10/01/2021 7:05 AM [facility] ALKALINE PHOSPHATASE S/P/B 33(L) 50 - 136 U/L 10/01/2021 7:05 AM [facility] ANION GAP 3.0(L) 5 - 15 MMOL/L 10/01/2021 7:05 AM [facility] BUN CREATININE RATIO 2.7(L) 6 10/01/2021 7:05 AM [facility] A/G RATIO 0.8(L) 1.0 - 2.0 RATIO 10/01/2021 7:05 AM [facility] EGFR NON-AFR. AMER. >90 >90 ML/MIN/1.7 3 M2 10/01/2021 7:05 AM [facility] EGFR AFR. AMER. >90 >90 ML/MIN/1.7 3 M2 10/01/2021 7:05 AM [facility] Comment: NOTE: eGFR is not calculated for patients <18 years of age. This is an estimated GFR (CKD EPI) and should not be used for calculating drug doses. 10/01/2021 6:20 AM [employer] Delilah Schultz PA-C LABORATORY Final Result Performing Organization Address [facility]/ZIP Co de Phone Number [facility] [address] [place] [address], * CLOSTRIDIUM DIFFICILE (09/30/2021 4:04 PM N[employer]EL[employer]ACKER) [facility] ANTIGEN NEGATIVE NEGATIVE 09/30/2021 4:50 PM [employer]ER [facility] C DIFFICILE TOXIN A&B (STOOL) NEGATIVE NEGATIVE 09/30/2021 4:50 PM [facility] COMMENT GDH NEGATIVE/TOXI N A & B NEGATIVE: NEGATIVE FOR TOXIGENIC C. DIFFICILE. GDH NEGATIVE/TOXI N A & B NEGATIVE: NEGATIVE FOR TOXIGENIC C. 09/30/2021 4:50 PM N[employer]ELTY [employer] AND PACKER [facility] STOOL SPECIMEN / Unknown 09/30/2021 4:04 PM [employer]ER Tiffani Moreno MD BODY FLUIDS AND STOOLS ORDERABLE S Final Result [facility] [address] [place] [address], [place] [phone] * (ABNORMAL) COMPREHENSIVE METABOLIC PANEL (09/30/2021 7:40 AM [employer]) [facility] GLUCOSE 104(H) 70 - 99 MG/DL 09/30/2021 8:31 AM [facility] BUN 2(L) 7 - 18 MG/DL 09/30/2021 8:31 AM [facility] CREATININE S/P/B 0.70 0.7 - 1.3 MG/DL 09/30/2021 8:31 AM [facility] SODIUM S/P/B 140 136 - 145 MMOL/L 09/30/2021 8:31 AM [facility] POTASSIUM S/P/B 4.6 3.5 - 5.1 MMOL/L 09/30/2021 8:31 AM [facility] CHLORIDE S/P/B 105 100 - 108 MMOL/L 09/30/2021 8:31 AM [facility] CO2 27.8 21 - 32 MMOL/L 09/30/2021 8:31 AM [facility] CALCIUM S/P/B 8.8 8.5 - 10.1 MG/DL 09/30/2021 8:31 AM [facility] BILIRUBIN TOTAL S/P/B 0.9 0.2 - 1.2 MG/DL 09/30/2021 8:31 AM [facility] TOTAL PROTEIN S/P/B 6.2(L) 6.4 - 8.2 G/DL 09/30/2021 8:31 AM [facility] ALBUMIN S/P/B 2.7(L) 3.4 - 5.0 G/DL 09/30/2021 8:31 AM [facility] AST 43(H) 15 - 37 U/L 09/30/2021 8:31 AM [facility] ALT 70(H) 16 - 60 U/L 09/30/2021 8:31 AM [facility] ALKALINE PHOSPHATASE S/P/B 31(L) 50 - 136 U/L 09/30/2021 8:31 AM [facility] ANION GAP 7.2 5 - 15 MMOL/L 09/30/2021 8:31 AM [facility] BUN CREATININE RATIO 2.9(L) 6 - 26 09/30/2021 8:31 AM [facility] A/G RATIO 0.8(L) 1.0 - 2.0 RATIO 09/30/2021 8:31 AM [facility] EGFR NON-AFR. AMER. >90 >90 ML/MIN/1.7 3 M2 09/30/2021 8:31 AM [facility] EGFR AFR. AMER. >90 >90 ML/MIN/1.7 3 M2 09/30/2021 8:31 AM [facility] Comment: NOTE: eGFR is not calculated for patients <18 years of age. This is an estimated GFR (CKD EPI) and should not be used for calculating drug doses. 09/30/2021 7:40 AM [employer] Aneesh Mesa MD LABORATORY Final Result [facility] [id number] [place] [address], [place] [phone] * (ABNORMAL) CBC W/DIFF AUTOMATED (09/30/2021 7:40 AM [employer]) WBC 5.8 4.4 - 11.0 x10'3/uL 09/30/2021 8:13 AM [facility] RBC 3.92(L) 4.50 - 5.90 x10'6/uL 09/30/2021 8:13 AM [facility] HGB 12.6(L) 14.0 - 17.5 G/DL 09/30/2021 8:13 AM [facility] HCT 37.3(L) 41.5 - 50.4 % 09/30/2021 8:13 AM [facility] MCV 95.2 80.0 - 96.0 FL 09/30/2021 8:13 AM [facility] MCH 32.1(H) 26.5 - 31.4 PG 09/30/2021 8:13 AM [facility] MCHC 33.8 31.9 - 34.8 G/DL 09/30/2021 8:13 AM [facility] RDW 13.2 12.3 - 14.3 % 09/30/2021 8:13 AM [facility] PLT 312 151 - 353 x10'3/uL 09/30/2021 8:13 AM [facility] MPV 10.6 9.7 - 11.9 FL 09/30/2021 8:13 AM [facility] RBC MORPHOLOGY NORMAL 09/30/2021 8:13 AM [facility] PLT MORPH. NORMAL 09/30/2021 8:13 AM [facility] WBC MORPHOLOGY NORMAL 09/30/2021 8:13 AM [facility] LYMPHOCYTES % 22.9 15.8 - 45.0 % 09/30/2021 8:13 AM [facility] NEUTROPHILS % 62.2 42.1 - 71.9 % 09/30/2021 8:13 AM [facility] MONOCYTES % 11.6 5.7 - 12.5 % 09/30/2021 8:13 AM [facility] EOSINOPHILS 2.4 0.0 - 5.6 % 09/30/2021 8:13 AM [facility] BASOPHILS 0.7 0.0 - 1.3 % 09/30/2021 8:13 AM [facility] ABS. NEUTROPHILS 3.59 1.40 - 6.00 x10'3/uL 09/30/2021 8:13 AM [facility] IMMATURE GRANS % 0.2 0.0 - 0.5 % 09/30/2021 8:13 AM [facility] ABS. LYMPHOCYTES 1.32 0.80 - 4.70 x10'3/uL 09/30/2021 8:13 AM [facility] 09/30/2021 7:40 AM [employer] us Aneesh Mesa MD LABORATORY Final Result [facility] [address] [place] [address], * (ABNORMAL) COMPREHENSIVE METABOLIC PANEL (09/29/2021 12:36 PM [employer]) GLUCOSE 115(H) 70 - 99 MG/DL 09/29/2021 1:04 PM [facility] BUN 3(L) 7 - 18 MG/DL 09/29/2021 1:04 PM [facility] CREATININE S/P/B 0.73 0.7 - 1.3 MG/DL 09/29/2021 1:04 PM [facility] SODIUM S/P/B 141 136 - 145 MMOL/L 09/29/2021 1:04 PM [facility] POTASSIUM S/P/B 3.7 3.5 - 5.1 MMOL/L 09/29/2021 1:04 PM [facility] CHLORIDE S/P/B 105 100 - 108 MMOL/L 09/29/2021 1:04 PM [facility] CO2 30.5 21 - 32 MMOL/L 09/29/2021 1:04 PM [facility] CALCIUM S/P/B 8.4(L) 8.5 - 10.1 MG/DL 09/29/2021 1:04 PM [facility] BILIRUBIN TOTAL S/P/B 0.9 0.2 - 1.2 MG/DL 09/29/2021 1:04 PM [facility] TOTAL PROTEIN S/P/B 6.6 6.4 - 8.2 G/DL 09/29/2021 1:04 PM [facility] ALBUMIN S/P/B 3.0(L) 3.4 - 5.0 G/DL 09/29/2021 1:04 PM [facility] AST 55(H) 15 - 37 U/L 09/29/2021 1:04 PM [facility] ALT 70(H) 16 - 60 U/L 09/29/2021 1:04 PM [facility] ALKALINE PHOSPHATASE S/P/B 32(L) 50 - 136 U/L 09/29/2021 1:04 PM [facility] ANION GAP 5.5 5 - 15 MMOL/L 09/29/2021 1:04 PM [facility] BUN CREATININE RATIO 4.1(L) 6 - 26 09/29/2021 1:04 PM [facility] A/G RATIO 0.8(L) 1.0 - 2.0 RATIO 09/29/2021 1:04 PM [facility] EGFR NON-AFR. AMER. >90 >90 ML/MIN/1.7 3 M2 09/29/2021 1:04 PM [facility] EGFR AFR. AMER. >90 >90 ML/MIN/1.7 3 M2 09/29/2021 1:04 PM [facility] Comment: NOTE: eGFR is not calculated for patients <18 years of age. This is an estimated GFR (CKD EPI) and should not be used for calculating drug doses. 09/29/2021 12:3 6 PM [employer] us Aneesh Mesa MD LABORATORY Final Result [facility] [address] [place] [address], [place] [phone] * (ABNORMAL) CBC W/DIFF AUTOMATED (09/29/2021 12:36 PM [employer]) WBC 6.5 4.4 - 11.0 x10'3/uL 09/29/2021 12:44 PM [facility] RBC 3.91(L) 4.50 - 5.90 x10'6/uL 09/29/2021 12:44 PM [facility] HGB 12.6(L) 14.0 - 17.5 G/DL 09/29/2021 12:44 PM [facility] HCT 37.4(L) 41.5 - 50.4 % 09/29/2021 12:44 PM [facility] MCV 95.7 80.0 - 96.0 FL 09/29/2021 12:44 PM [facility] MCH 32.2(H) 26.5 - 31.4 PG 09/29/2021 12:44 PM [facility] MCHC 33.7 31.9 - 34.8 G/DL 09/29/2021 12:44 PM [facility] RDW 13.2 12.3 - 14.3 % 09/29/2021 12:44 PM [facility] PLT 282 151 - 353 x10'3/uL 09/29/2021 12:44 PM [facility] MPV 9.9 9.7 - 11.9 FL 09/29/2021 12:44 PM [facility] RBC MORPHOLOGY NORMAL 09/29/2021 12:44 PM [facility] PLT MORPH. NORMAL 09/29/2021 12:44 PM [facility] WBC MORPHOLOGY NORMAL 09/29/2021 12:44 PM [facility] LYMPHOCYTES % 21.7 15.8 - 45.0 % 09/29/2021 12:44 PM [facility] NEUTROPHILS % 66.5 42.1 - 71.9 % 09/29/2021 12:44 PM [facility] MONOCYTES % 9.5 5.7 - 12.5 % 09/29/2021 12:44 PM [facility] EOSINOPHILS 1.5 0.0 - 5.6 % 09/29/2021 12:44 PM [facility] BASOPHILS 0.5 0.0 - 1.3 % 09/29/2021 12:44 PM [facility] ABS. NEUTROPHILS 4.33 1.40 - 6.00 x10'3/uL 09/29/2021 12:44 PM [facility] IMMATURE GRANS % 0.3 0.0 - 0.5 % 09/29/2021 12:44 PM [facility] ABS. LYMPHOCYTES 1.41 0.80 - 4.70 x10'3/uL 09/29/2021 12:44 PM [employer] [facility] 09/29/2021 12:3 6 PM [employer] us Aneesh Mesa MD LABORATORY Final Result [facility] () [facility] [address] [place] [address], [place] [phone] * XR ABD KUB (09/29/2021 8:59 AM [employer]) Anatomical Region Laterality Modality Abdomen Radiographic Leola ging 09/29/2021 12:3 2 PM [employer] Impressions 09/29/2021 12:33 PM [employer] FINDINGS IMPRESSION : CHEST: ?? 1. ??The cardiac configuration is normal. Lung bases are clear, within the [id number]. ABDOMEN: 1. ??No free air below the [...] 09/29/2021 12:32 PM Narrative 09/29/2021 12:33 PM [employer] IMAGING STUDIES: ??XR ABD KUB ? DATE: ??09/29/2021 8:36 AM CLINICAL HISTORY: ??ileus ?? . . COMPARISON STUDIES: 11/27/2020. ?? Procedure Note Moncho Cheng MD - 09/29/2021 IMAGING STUDIES: XR ABD KUB DATE: 09/29/2021 8:36 AM CLINICAL HISTORY: ileus . . COMPARISON STUDIES: 11/27/2020. FINDINGS IMPRESSION : CHEST: 1. The cardiac configuration is normal. Lung bases are clear, within [id number]. ABDOMEN: 1. No free air below the [...] * (ABNORMAL) POTASSIUM, SERUM (09/28/2021 6:50 PM [employer]) Pathologist [facility] POTASSIUM S/P/B 3.2(L) 3.5 - 5.1 MMOL/L 09/28/2021 7:17 PM [employer] [facility] 09/28/2021 6:50 PM [employer] Lacey Barkley MD LABORATORY Final Result [facility] [address] [place] [address], * (ABNORMAL) COMPREHENSIVE METABOLIC PANEL (09/28/2021 9:11 AM [employer]) GLUCOSE 115(H) 70 - 99 MG/DL 09/28/2021 9:54 AM [employer] [facility] BUN 3(L) 7 - 18 MG/DL 09/28/2021 9:54 AM [employer] [facility] CREATININE S/P/B 0.82 0.7 - 1.3 MG/DL 09/28/2021 9:54 AM [facility] SODIUM S/P/B 142 136 - 145 MMOL/L 09/28/2021 9:54 AM [facility] POTASSIUM S/P/B 2.7(LL) 3.5 - 5.1 MMOL/L 09/28/2021 9:54 AM [facility] Comment: AT CALLED CRITICAL RESULTS AT [id number] TO AND READ BACK BY GINA LERMA [facility] CHLORIDE S/P/B 103 100 - 108 MMOL/L 09/28/2021 9:54 AM [facility] CO2 31.3 21 - 32 MMOL/L 09/28/2021 9:54 AM [facility] CALCIUM S/P/B 8.5 8.5 - 10.1 MG/DL 09/28/2021 9:54 AM [facility] BILIRUBIN TOTAL S/P/B 0.7 0.2 - 1.2 MG/DL 09/28/2021 9:54 AM [facility] TOTAL PROTEIN S/P/B 6.4 6.4 - 8.2 G/DL 09/28/2021 9:54 AM [facility] ALBUMIN S/P/B 2.7(L) 3.4 - 5.0 G/DL 09/28/2021 9:54 AM [facility] AST 26 15 - 37 U/L 09/28/2021 9:54 AM [facility] ALT 29 16 - 60 U/L 09/28/2021 9:54 AM [facility] ALKALINE PHOSPHATASE S/P/B 25(L) 50 - 136 U/L 09/28/2021 9:54 AM [facility] ANION GAP 7.7 5 - 15 MMOL/L 09/28/2021 9:54 AM [employer] [facility] BUN CREATININE RATIO 3.7(L) 6 - 26 09/28/2021 9:54 AM [facility] A/G RATIO 0.7(L) 1.0 - 2.0 RATIO 09/28/2021 9:54 AM [facility] EGFR NON-AFR. AMER. >90 >90 ML/MIN/1.7 3 M2 09/28/2021 9:54 AM [facility] EGFR AFR. AMER. >90 >90 ML/MIN/1.7 3 M2 09/28/2021 9:54 AM [facility] Comment: NOTE: eGFR is not calculated for patients <18 years of age. This is an estimated GFR (CKD EPI) and should not be used for calculating drug doses. 09/28/2021 9:11 AM [employer] Margarita Sloan MD LABORATORY Final Result [facility] [address] [place] [address], * (ABNORMAL) CBC W/DIFF AUTOMATED (09/28/2021 9:11 AM [employer]) WBC 6.1 4.4 - 11.0 x10'3/uL 09/28/2021 9:19 AM [facility] RBC 3.92(L) 4.50 - 5.90 x10'6/uL 09/28/2021 9:19 AM [facility] HGB 12.6(L) 14.0 - 17.5 G/DL 09/28/2021 9:19 AM [facility] HCT 36.8(L) 41.5 - 50.4 % 09/28/2021 9:19 AM [facility] MCV 93.9 80.0 - 96.0 FL 09/28/2021 9:19 AM [facility] MCH 32.1(H) 26.5 - 31.4 PG 09/28/2021 9:19 AM [facility] MCHC 34.2 31.9 - 34.8 G/DL 09/28/2021 9:19 AM [facility] RDW 13.0 12.3 - 14.3 % 09/28/2021 9:19 AM [facility] PLT 268 151 - 353 x10'3/uL 09/28/2021 9:19 AM [facility] MPV 10.3 9.7 - 11.9 FL 09/28/2021 9:19 AM [facility] RBC MORPHOLOGY NORMAL 09/28/2021 9:19 AM [facility] PLT MORPH. NORMAL 09/28/2021 9:19 AM [facility] WBC MORPHOLOGY NORMAL 09/28/2021 9:19 AM [facility] LYMPHOCYTES % 21.4 15.8 - 45.0 % 09/28/2021 9:19 AM [facility] NEUTROPHILS % 65.3 42.1 - 71.9 % 09/28/2021 9:19 AM [facility] MONOCYTES % 10.3 5.7 - 12.5 % 09/28/2021 9:19 AM [facility] EOSINOPHILS 2.0 0.0 - 5.6 % 09/28/2021 9:19 AM [facility] BASOPHILS 0.5 0.0 - 1.3 % 09/28/2021 9:19 AM [facility] ABS. NEUTROPHILS 4.01 1.40 - 6.00 x10'3/uL 09/28/2021 9:19 AM [employer] [facility] IMMATURE GRANS % 0.5 0.0 - 0.5 % 09/28/2021 9:19 AM [employer] [facility] ABS. LYMPHOCYTES 1.31 0.80 - 4.70 x10'3/uL 09/28/2021 9:19 AM [employer] [facility] 09/28/2021 9:11 AM [employer] Margarita Sloan MD LABORATORY Final Result [facility] [address] [place] [address], [place] [phone] * USE ECHOCARDIOGRAM (09/27/2021 2:34 PM [employer]) Anatomical Region Laterality Modality Cardiac Echocardiogram Lacey Barkley MD ECHO Final Result * XR ABD KUB (09/27/2021 2:27 PM [employer]) Anatomical Region Laterality Modality Abdomen Radiographic Leola ging 09/27/2021 4:08 PM [employer] Impressions 09/27/2021 4:09 PM [employer] FINDINGS IMPRESSION : CHEST: ?? 1. ??The cardiac configuration is normal. Lung bases are clear, within the [id number]. ABDOMEN: 1. ??No free air below the diaphragm. 2. ??Numerous dilated loops of small bowel either secondary to ileus or distal small bowel obstruction 3. ??Surgical changes right upper quadrant and left lower quadrant. Drain in the pelvis. 4. ??Degenerative changes of the lower lumbar spine and hips. Ordered By: MARGARITA SLOAN Interpreted By: Moncho Cheng, 09/27/2021 4:08 PM Narrative 09/27/2021 4:09 PM [employer] IMAGING STUDIES: ??XR ABD KUB ? DATE: [...] is normal. Lung bases are clear, within [id number]. ABDOMEN: 1. No free air below the [...] * ECG 12 lead (09/27/2021 1:42 PM [employer]) 09/27/2021 1:42 PM [employer] Narrative [facility] - 09/27/2021 7:43 PM [employer] ?[facility] ? Test Date: ?2021-09-27 Pat Name: ? MANDIE COTTER ? Department: ? Room: ? 1091 Gender: ? Male ? Guest Relations Agent: ?? : ?1955 ? Requested By: LACEY BARKLEY Order Number: [id number] ? Reading MD: ?? Ben Diego ? Measurements Intervals ?Calvert ? Rate: ? 67 ? P: ?5 TN: ? 111 ?QRS: ?32 QRSD: ? 101 ?T: ?46 QT: ? 392 ? QTc: ?416 ? Interpretive Statements SINUS RHYTHM WITH SHORT TN INTERVAL NONSPECIFIC ST & T-WAVE ABNORMALITY Compared to ECG 09/26/2021 12:44:09 Short TN interval now present Atrial fibrillation no longer present Aberrant conduction of supraventricular beat(s) no longer present Ventricular premature complex(es) no longer present T-wave abnormality still present [employer] Procedure Note Ben Diego MD - 09/27/2021 [facility] Test Date: 2021-09-27 Pat Name: MANDIE COTTER Department: Room: 1091 Gender: Male Guest Relations Agent: : [id number] Requested By: LACEY BARKLEY Order Number: [id number] Reading MD: Ben Diego Measurements Intervals Calvert Rate: 67 P: 5 TN: 111 QRS: 32 QRSD: 101 T: 46 QT: 392 QTc: 416 Interpretive Statements SINUS RHYTHM WITH SHORT TN INTERVAL NONSPECIFIC ST & T-WAVE ABNORMALITY Compared to ECG 09/26/2021 12:44:09 Short TN interval now present Atrial fibrillation no longer present Aberrant conduction of supraventricular beat(s) no longer present Ventricular premature complex(es) no longer present T-wave abnormality still present [employer] Lacey Barkley MD ECG ORDERABLES Final Result [facility] ([facility] * (ABNORMAL) COMPREHENSIVE METABOLIC PANEL (09/27/2021 8:27 AM [employer]) [facility] GLUCOSE 140(H) 70 - 99 MG/DL 09/27/2021 9:10 AM [facility] BUN 5(L) 7 - 18 MG/DL 09/27/2021 9:10 AM [facility] CREATININE S/P/B 0.78 0.7 - 1.3 MG/DL 09/27/2021 9:10 AM [facility] SODIUM S/P/B 142 136 - 145 MMOL/L 09/27/2021 9:10 AM [facility] POTASSIUM S/P/B 3.5 3.5 - 5.1 MMOL/L 09/27/2021 9:10 AM [facility] CHLORIDE S/P/B 104 100 - 108 MMOL/L 09/27/2021 9:10 AM [facility] CO2 30.4 21 - 32 MMOL/L 09/27/2021 9:10 AM [facility] CALCIUM S/P/B 8.6 8.5 - 10.1 MG/DL 09/27/2021 9:10 AM [facility] BILIRUBIN TOTAL S/P/B 0.9 0.2 - 1.2 MG/DL 09/27/2021 9:10 AM [facility] TOTAL PROTEIN S/P/B 6.7 6.4 - 8.2 G/DL 09/27/2021 9:10 AM [facility] ALBUMIN S/P/B 3.1(L) 3.4 - 5.0 G/DL 09/27/2021 9:10 AM [facility] AST 30 15 - 37 U/L 09/27/2021 9:10 AM [facility] ALT 24 16 - 60 U/L 09/27/2021 9:10 AM [facility] ALKALINE PHOSPHATASE S/P/B 24(L) 50 - 136 U/L 09/27/2021 9:10 AM [facility] ANION GAP 7.6 5 - 15 MMOL/L 09/27/2021 9:10 AM [facility] BUN CREATININE RATIO 6.4 6 - 26 09/27/2021 9:10 AM [facility] A/G RATIO 0.9(L) 1.0 - 2.0 RATIO 09/27/2021 9:10 AM [facility] EGFR NON-AFR. AMER. >90 >90 ML/MIN/1.7 3 M2 09/27/2021 9:10 AM [facility] EGFR AFR. AMER. >90 >90 ML/MIN/1.7 3 M2 09/27/2021 9:10 AM [facility] Comment: NOTE: eGFR is not calculated for patients <18 years of age. This is an estimated GFR (CKD EPI) and should not be used for calculating drug doses. 09/27/2021 8:27 AM [employer] us Margarita Sloan MD LABORATORY Final Result [facility] [address] [place] [address], [place] [phone] * (ABNORMAL) CBC W/DIFF AUTOMATED (09/27/2021 8:27 AM [employer]) WBC 7.0 4.4 - 11.0 x10'3/uL 09/27/2021 8:56 AM [facility] RBC 4.13(L) 4.50 - 5.90 x10'6/uL 09/27/2021 8:56 AM [facility] HGB 13.4(L) 14.0 - 17.5 G/DL 09/27/2021 8:56 AM [facility] HCT 39.5(L) 41.5 - 50.4 % 09/27/2021 8:56 AM [facility] MCV 95.6 80.0 - 96.0 FL 09/27/2021 8:56 AM [facility] MCH 32.4(H) 26.5 - 31.4 PG 09/27/2021 8:56 AM [facility] MCHC 33.9 31.9 - 34.8 G/DL 09/27/2021 8:56 AM [facility] RDW 13.2 12.3 - 14.3 % 09/27/2021 8:56 AM [facility] PLT 267 151 - 353 x10'3/uL 09/27/2021 8:56 AM [facility] MPV 11.6 9.7 - 11.9 FL 09/27/2021 8:56 AM [facility] RBC MORPHOLOGY NORMAL 09/27/2021 8:56 AM [facility] PLT MORPH. NORMAL 09/27/2021 8:56 AM [facility] WBC MORPHOLOGY NORMAL 09/27/2021 8:56 AM [facility] LYMPHOCYTES % 22.4 15.8 - 45.0 % 09/27/2021 8:56 AM [facility] NEUTROPHILS % 66.3 42.1 - 71.9 % 09/27/2021 8:56 AM [facility] MONOCYTES % 8.3 5.7 - 12.5 % 09/27/2021 8:56 AM [facility] EOSINOPHILS 2.3 0.0 - 5.6 % 09/27/2021 8:56 AM [facility] BASOPHILS 0.6 0.0 - 1.3 % 09/27/2021 8:56 AM [facility] ABS. NEUTROPHILS 4.61 1.40 - 6.00 x10'3/uL 09/27/2021 8:56 AM [facility] IMMATURE GRANS % 0.1 0.0 - 0.5 % 09/27/2021 8:56 AM [facility] ABS. LYMPHOCYTES 1.56 0.80 - 4.70 x10'3/uL 09/27/2021 8:56 AM [employer] [facility] 09/27/2021 8:27 AM [employer] Margarita Sloan MD LABORATORY Final Result [facility] [address] [place] [address], * ECG 12 lead (09/26/2021 12:44 PM [employer]) 09/26/2021 12:4 4 PM [employer] Narrative [facility] RAD - 09/26/2021 9:49 PM [employer] ?[facility] ? Test Date: ?2021-09-26 Pat Name: ? MANDIE COTTER ? Department: ? Room: ? 1091 Gender: ? Male ? Guest Relations Agent: ?? : ?1955 ? Requested By: LACEY BARKLEY Order Number: [id number] ? Reading : ?? Toño Lovett ? Measurements Intervals ?Calvert ? Rate: ? 127 ?P: ? TN: ? 0 ?QRS: ?9 QRSD: ? 91 [...] now present Sinus rhythm no longer present [employer] Procedure Note Toño Lovett MD - 09/26/2021 [facility] Test Date: 2021-09-26 Pat Name: MANDIE COTTER Department: Room: 1091 Gender: Male Guest Relations Agent: : 1955 Requested By: LACEY BARKLEY Order Number: [id number] Reading MD: Toño Lovett Measurements Intervals Calvert Rate: 127 P: TN: 0 QRS: 9 QRSD: 91 T: 32 QT: 306 QTc: 445 Interpretive Statements ATRIAL FIBRILLATION WITH RAPID VENTRICULAR RESPONSE WITH ABERRANTCONDUCTION OR VENTRICULAR PREMATURE COMPLEXES NONSPECIFIC ST & T-WAVE ABNORMALITY ABNORMAL RHYTHM ECG Compared to ECG 09/24/2021 12:41:26 Ventricular premature complex(es) now present Aberrant conduction of supraventricular beat(s) now present T-wave abnormality now present Sinus rhythm no longer present [employer] us Lacey Barkley MD ECG ORDERABLES Final Result [facility] ([facility] RAD * (ABNORMAL) COMPREHENSIVE METABOLIC PANEL (09/25/2021 6:40 AM [employer]) GLUCOSE 104(H) 70 - 99 MG/DL 09/25/2021 7:06 [facility] BUN 11 7 - 18 MG/DL 09/25/2021 7:06 AM [facility] CREATININE S/P/B 0.74 0.7 - 1.3 MG/DL 09/25/2021 7:06 AM [facility] SODIUM S/P/B 144 136 - 145 MMOL/L 09/25/2021 7:06 AM [facility] POTASSIUM S/P/B 4.4 3.5 - 5.1 MMOL/L 09/25/2021 7:06 AM [facility] CHLORIDE S/P/B 109(H) 100 - 108 MMOL/L 09/25/2021 7:06 AM [facility] CO2 25.6 21 - 32 MMOL/L 09/25/2021 7:06 AM [facility] CALCIUM S/P/B 8.5 8.5 - 10.1 MG/DL 09/25/2021 7:06 AM [facility] BILIRUBIN TOTAL S/P/B 1.2 0.2 - 1.2 MG/DL 09/25/2021 7:06 AM [facility] TOTAL PROTEIN S/P/B 6.7 6.4 - 8.2 G/DL 09/25/2021 7:06 AM [facility] ALBUMIN S/P/B 3.0(L) 3.4 - 5.0 G/DL 09/25/2021 7:06 [facility] AST 25 15 - 37 U/L 09/25/2021 7:06 AM [facility] ALT 26 16 - 60 U/L 09/25/2021 7:06 AM [facility] ALKALINE PHOSPHATASE S/P/B 29(L) 50 - 136 U/L 09/25/2021 7:06 AM [facility] ANION GAP 9.4 5 - 15 MMOL/L 09/25/2021 7:06 AM [facility] BUN CREATININE RATIO 14.9 6 - 26 09/25/2021 7:06 AM [facility] A/G RATIO 0.8(L) 1.0 - 2.0 RATIO 09/25/2021 7:06 AM [facility] EGFR NON-AFR. AMER. >90 >90 ML/MIN/1.7 3 M2 09/25/2021 7:06 AM [facility] EGFR AFR. AMER. >90 >90 ML/MIN/1.7 3 M2 09/25/2021 7:06 AM [facility] Comment: NOTE: eGFR is not calculated for patients <18 years of age. This is an estimated GFR (CKD EPI) and should not be used for calculating drug doses. 09/25/2021 6:40 AM [employer] Porsche Lord NP LABORATORY Final Result [facility] [address] [place] [address], [place] [phone] * (ABNORMAL) CBC W/DIFF AUTOMATED (09/25/2021 6:40 AM [employer]) WBC 8.7 4.4 - 11.0 x10'3/uL 09/25/2021 6:52 AM [employer] [facility] RBC 4.11(L) 4.50 - 5.90 x10'6/uL 09/25/2021 6:52 AM [facility] HGB 13.2(L) 14.0 - 17.5 G/DL 09/25/2021 6:52 AM [facility] HCT 39.9(L) 41.5 - 50.4 % 09/25/2021 6:52 AM [facility] MCV 97.1(H) 80.0 - 96.0 FL 09/25/2021 6:52 AM [facility] MCH 32.1(H) 26.5 - 31.4 PG 09/25/2021 6:52 AM [employer] [facility] MCHC 33.1 31.9 - 34.8 G/DL 09/25/2021 6:52 AM [facility] RDW 13.1 12.3 - 14.3 % 09/25/2021 6:52 AM [facility] PLT 229 151 - 353 x10'3/uL 09/25/2021 6:52 AM [facility] MPV 10.5 9.7 - 11.9 FL 09/25/2021 6:52 AM [facility] RBC MORPHOLOGY NORMAL 09/25/2021 6:52 AM [facility] PLT MORPH. NORMAL 09/25/2021 6:52 AM [facility] WBC MORPHOLOGY NORMAL 09/25/2021 6:52 AM [facility] LYMPHOCYTES % 14.2(L) 15.8 - 45.0 % 09/25/2021 6:52 AM [facility] NEUTROPHILS % 76.9(H) 42.1 - 71.9 % 09/25/2021 6:52 AM [facility] MONOCYTES % 7.3 5.7 - 12.5 % 09/25/2021 6:52 AM [facility] EOSINOPHILS 0.6 0.0 - 5.6 % 09/25/2021 6:52 AM [facility] BASOPHILS 0.5 0.0 - 1.3 % 09/25/2021 6:52 AM [facility] ABS. NEUTROPHILS 6.67(H) 1.40 - 6.00 x10'3/uL 09/25/2021 6:52 AM [facility] IMMATURE GRANS % 0.5 0.0 - 0.5 % 09/25/2021 6:52 AM [facility] ABS. LYMPHOCYTES 1.23 0.80 - 4.70 x10'3/uL 09/25/2021 6:52 AM [facility] 09/25/2021 6:40 AM [employer] us Porsche Lord NP LABORATORY Final Result [facility] [address] [place] [address], [place] [phone] * XR CHEST PORTABLE (09/24/2021 3:19 PM [employer]) Anatomical Region Laterality Modality Chest Radiographic Leola ging 09/24/2021 3:23 PM [employer] Impressions 09/24/2021 3:24 PM [employer] FINDINGS AND IMPRESSION: CHEST: 1. ??The cardiomediastinal [...] bowel noted at the margin of the [id number] Ordered By: MARGARITA SLOAN Interpreted By: Moncho Cheng, 09/24/2021 3:23 PM Narrative 09/24/2021 3:24 PM [employer] IMAGING STUDIES: ??XR CHEST PORTABLE ? EXAM [...] bowel noted at the margin of the [id number] Ordered By: MARGARITA SLOAN Interpreted By: Moncho Cheng, 09/24/2021 3:23 PM us Margarita Sloan MD GENERAL IMAGING Final Result * (ABNORMAL) GASTRIC OCCULT BLOOD (09/24/2021 3:00 PM [employer]) GASTRIC OCCULT BLOOD POSITIVE(A ) NEGATIVE 09/24/2021 3:36 PM [employer] [facility] PH GASTRIC 7 1.3 - 7.8 09/24/2021 3:36 PM [employer] [facility] 09/24/2021 3:00 PM [employer] Margarita Sloan MD BODY FLUIDS AND STOOLS ORDER ZAMZAM Final Result Performing Organization Address City/State/[facility] Co de Phone Number [facility] [address] [place] [address], * ECG 12 lead (09/24/2021 12:41 PM [employer]) 09/24/2021 12:4 1 PM [employer] Narrative [facility] ([facility]) RAD - 09/26/2021 9:09 AM [employer] ?[facility] ? Test Date: ?2021-09-24 Pat Name: ? MANDIE COTTER ? Department: ? Room: ? 109 Gender: ? Male ? Guest Relations Agent: ?? : ?[id number] ? Requested By: PORSCHE LORD Order Number: [id number] ? Reading MD: ?? Toño Lovett ? Measurements Intervals ?[place] ? Rate: ? 93 ? P: ?30 TN: ? 136 ?QRS: ?13 QRSD: ? 98 ? T: ?53 QT: ? 353 ? QTc: ?439 ? Interpretive Statements SINUS RHYTHM Compared to ECG 03/18/2021 10:08:00 T-wave abnormality no longer present [employer] Procedure Note Toño Lovett MD - 09/26/2021 [facility] Test Date: 2021-09-24 Pat Name: MANDIE COTTER Department: Room: 109 Gender: Male Guest Relations Agent: : [id number] Requested By: PORSCHE LORD Order Number: [id number] Reading MD: Toño Lovett Measurements Intervals [place] Rate: 93 P: 30 TN: 136 QRS: 13 QRSD: 98 T: 53 QT: 353 QTc: 439 Interpretive Statements SINUS RHYTHM Compared to ECG 03/18/2021 10:08:00 T-wave abnormality no longer present [employer] us Porsche Lord EXECUTIVE MARKETING ASSISTANT ECG ORDERABLES Final Result [facility] ([facility]) RAD * (ABNORMAL) COMPREHENSIVE METABOLIC PANEL (09/24/2021 6:08 AM [employer]) GLUCOSE 98 70 - 99 MG/DL 09/24/2021 6:49 AM [facility] BUN 12 7 - 18 MG/DL 09/24/2021 6:49 AM [facility] CREATININE S/P/B 0.79 0.7 - 1.3 MG/DL 09/24/2021 6:49 AM [facility] SODIUM S/P/B 142 136 - 145 MMOL/L 09/24/2021 6:49 AM [facility] POTASSIUM S/P/B 4.0 3.5 - 5.1 MMOL/L 09/24/2021 6:49 AM [facility] CHLORIDE S/P/B 106 100 - 108 MMOL/L 09/24/2021 6:49 AM [facility] CO2 24.5 21 - 32 MMOL/L 09/24/2021 6:49 AM [facility] CALCIUM S/P/B 8.4(L) 8.5 - 10.1 MG/DL 09/24/2021 6:49 AM [facility] BILIRUBIN TOTAL S/P/B 1.6(H) 0.2 - 1.2 MG/DL 09/24/2021 6:49 AM [facility] TOTAL PROTEIN S/P/B 6.6 6.4 - 8.2 G/DL 09/24/2021 6:49 AM [facility] ALBUMIN S/P/B 3.2(L) 3.4 - 5.0 G/DL 09/24/2021 6:49 AM [facility] AST 25 15 - 37 U/L 09/24/2021 6:49 AM [facility] ALT 27 16 - 60 U/L 09/24/2021 6:49 AM [facility] ALKALINE PHOSPHATASE S/P/B 37(L) 50 - 136 U/L 09/24/2021 6:49 AM [facility] ANION GAP 11.5 5 - 15 MMOL/L 09/24/2021 6:49 AM [facility] BUN CREATININE RATIO 15.2 6 - 26 09/24/2021 6:49 AM [facility] A/G RATIO 0.9(L) 1.0 - 2.0 RATIO 09/24/2021 6:49 AM [facility] EGFR NON-AFR. AMER. >90 >90 ML/MIN/1.7 3 M2 09/24/2021 6:49 AM [facility] EGFR AFR. AMER. >90 >90 ML/MIN/1.7 3 M2 09/24/2021 6:49 AM [facility] Comment: NOTE: eGFR is not calculated for patients <18 years of age. This is an estimated GFR (CKD EPI) and should not be used for calculating drug doses. 09/24/2021 6:08 AM [employer] Porsche Lord NP LABORATORY Final Result [facility] [address] [place] [address], * (ABNORMAL) CBC W/DIFF AUTOMATED (09/24/2021 6:08 AM [employer]) WBC 9.2 4.4 - 11.0 x10'3/uL 09/24/2021 6:30 AM [facility] RBC 4.13(L) 4.50 - 5.90 x10'6/uL 09/24/2021 6:30 AM [facility] HGB 13.4(L) 14.0 - 17.5 G/DL 09/24/2021 6:30 AM [facility] HCT 39.8(L) 41.5 - 50.4 % 09/24/2021 6:30 AM [facility] MCV 96.4(H) 80.0 - 96.0 FL 09/24/2021 6:30 AM [facility] MCH 32.4(H) 26.5 - 31.4 PG 09/24/2021 6:30 AM [facility] MCHC 33.7 31.9 - 34.8 G/DL 09/24/2021 6:30 AM [facility] RDW 13.0 12.3 - 14.3 % 09/24/2021 6:30 AM [facility] PLT 233 151 - 353 x10'3/uL 09/24/2021 6:30 AM [facility] MPV 10.4 9.7 - 11.9 FL 09/24/2021 6:30 AM [facility] RBC MORPHOLOGY NORMAL 09/24/2021 6:30 AM [facility] PLT MORPH. NORMAL 09/24/2021 6:30 AM [facility] WBC MORPHOLOGY NORMAL 09/24/2021 6:30 AM [facility] LYMPHOCYTES % 16.7 15.8 - 45.0 % 09/24/2021 6:30 AM [facility] NEUTROPHILS % 72.9(H) 42.1 - 71.9 % 09/24/2021 6:30 AM [facility] MONOCYTES % 9.5 5.7 - 12.5 % 09/24/2021 6:30 AM [facility] EOSINOPHILS 0.3 0.0 - 5.6 % 09/24/2021 6:30 AM [facility] BASOPHILS 0.4 0.0 - 1.3 % 09/24/2021 6:30 AM [facility] ABS. NEUTROPHILS 6.66(H) 1.40 - 6.00 x10'3/uL 09/24/2021 6:30 AM [facility] IMMATURE GRANS % 0.2 0.0 - 0.5 % 09/24/2021 6:30 AM [facility] ABS. LYMPHOCYTES 1.53 0.80 - 4.70 x10'3/uL 09/24/2021 6:30 AM [facility] 09/24/2021 6:08 AM [employer] Porsche Lord NP LABORATORY Final Result [facility] [address] [place] [address], * (ABNORMAL) CBC W/DIFF AUTOMATED (09/23/2021 5:45 AM [employer]) [facility] Signature WBC 8.1 4.4 - 11.0 x10'3/uL 09/23/2021 6:09 AM [facility] RBC 4.03(L) 4.50 - 5.90 x10'6/uL 09/23/2021 6:09 AM [facility] HGB 12.8(L) 14.0 - 17.5 G/DL 09/23/2021 6:09 AM [facility] HCT 38.1(L) 41.5 - 50.4 % 09/23/2021 6:09 AM [facility] MCV 94.5 80.0 - 96.0 FL 09/23/2021 6:09 AM [facility] MCH 31.8(H) 26.5 - 31.4 PG 09/23/2021 6:09 AM [facility] MCHC 33.6 31.9 - 34.8 G/DL 09/23/2021 6:09 AM [facility] RDW 12.9 12.3 - 14.3 % 09/23/2021 6:09 AM [facility] PLT 221 151 - 353 x10'3/uL 09/23/2021 6:09 AM [facility] MPV 10.6 9.7 - 11.9 FL 09/23/2021 6:09 AM [facility] RBC MORPHOLOGY NORMAL 09/23/2021 6:09 AM [facility] PLT MORPH. NORMAL 09/23/2021 6:09 AM [facility] WBC MORPHOLOGY NORMAL 09/23/2021 6:09 AM [facility] LYMPHOCYTES % 17.9 15.8 - 45.0 % 09/23/2021 6:09 AM [facility] NEUTROPHILS % 70.9 42.1 - 71.9 % 09/23/2021 6:09 AM [facility] MONOCYTES % 10.3 5.7 - 12.5 % 09/23/2021 6:09 AM [facility] EOSINOPHILS 0.1 0.0 - 5.6 % 09/23/2021 6:09 AM [facility] BASOPHILS 0.4 0.0 - 1.3 % 09/23/2021 6:09 AM [facility] ABS. NEUTROPHILS 5.71 1.40 - 6.00 x10'3/uL 09/23/2021 6:09 AM [facility] IMMATURE GRANS % 0.4 0.0 - 0.5 % 09/23/2021 6:09 AM [facility] ABS. LYMPHOCYTES 1.44 0.80 - 4.70 x10'3/uL 09/23/2021 6:09 AM [facility] 09/23/2021 5:45 AM [employer] us Margarita Sloan MD LABORATORY Final Result [facility] [address] [place] [address], [place] [phone] * (ABNORMAL) COMPREHENSIVE METABOLIC PANEL (09/23/2021 5:45 AM [employer]) Pathologist [facility] GLUCOSE 102(H) 70 - 99 MG/DL 09/23/2021 6:23 AM [facility] BUN 10 7 - 18 MG/DL 09/23/2021 6:23 AM [facility] CREATININE S/P/B 0.97 0.7 - 1.3 MG/DL 09/23/2021 6:23 AM [facility] SODIUM S/P/B 141 136 - 145 MMOL/L 09/23/2021 6:23 AM [facility] POTASSIUM S/P/B 4.1 3.5 - 5.1 MMOL/L 09/23/2021 6:23 AM [facility] CHLORIDE S/P/B 106 100 - 108 MMOL/L 09/23/2021 6:23 AM [facility] CO2 26.5 21 - 32 MMOL/L 09/23/2021 6:23 AM [facility] CALCIUM S/P/B 8.0(L) 8.5 - 10.1 MG/DL 09/23/2021 6:23 AM [facility] BILIRUBIN TOTAL S/P/B 1.3(H) 0.2 - 1.2 MG/DL 09/23/2021 6:23 AM [facility] TOTAL PROTEIN S/P/B 5.9(L) 6.4 - 8.2 G/DL 09/23/2021 6:23 AM [facility] ALBUMIN S/P/B 3.1(L) 3.4 - 5.0 G/DL 09/23/2021 6:23 AM [facility] AST 22 15 - 37 U/L 09/23/2021 6:23 AM [facility] ALT 29 16 - 60 U/L 09/23/2021 6:23 AM [facility] ALKALINE PHOSPHATASE S/P/B 37(L) 50 - 136 U/L 09/23/2021 6:23 AM [facility] ANION GAP 8.5 5 - 15 MMOL/L 09/23/2021 6:23 AM [facility] BUN CREATININE RATIO 10.3 6 - 26 09/23/2021 6:23 AM [facility] A/G RATIO 1.1 1.0 - 2.0 RATIO 09/23/2021 6:23 AM [facility] EGFR NON-AFR. AMER. 80(L) >90 ML/MIN/1.7 3 M2 09/23/2021 6:23 AM [facility] EGFR AFR. AMER. >90 >90 ML/MIN/1.7 3 M2 09/23/2021 6:23 AM [facility] Comment: NOTE: eGFR is not calculated for patients <18 years of age. This is an estimated GFR (CKD EPI) and should not be used for calculating drug doses. 09/23/2021 5:45 AM [employer] Margarita Sloan MD LABORATORY Final Result [facility] [address] [place] [address], [place] [phone] * TYPE & SCREEN (09/22/2021 6:30 AM [employer]) ABO/RH O POSITIVE 09/22/2021 6:51 AM [employer] [facility] ANTIBODY SCREEN NEGATIVE 09/22/2021 7:14 AM [employer] [facility] SAMPLE EXPIRATION 09/25/2021,2 359 09/22/2021 6:51 AM [employer] [facility] 09/22/2021 6:30 AM [employer] Margarita Sloan MD BLOOD BANK TEST ORDERABLES F inal Result [facility] [address] [place] [address], * Pathology (09/22/2021 12:00 AM [employer]) PATHOLOGY [facility] ? Department of Laboratory Medicine ?[address] ?[place] [address] ? , extension [phone] ? Pathology Report ? Surgical Pathology Report Name: MANDIE COTTER ? Specimen #: [id number] Age: 9 1955 (Age: 66) ?Location: [id number] Sex: M ?Procedure Date: 09/22/2021 Hospital #: [id number] ?Date Received: 09/23/2021 Date Reported: 09/24/2021 Provider: [...] erythematous and no discrete lesions are identified. ??Office Sweeper tissue is submitted in cassette A1. ??The second piece of tissue is 3 x 1.5 x 1 cm. ??It is also erythematous. ??Sections reveal disrupted bowel tissue with no discrete lesions noted grossly. ??Office Sweeper tissue is submitted in cassette A2. B) Received in formalin, labeled with a patient label and as anastomotic donuts is a 1.8 cm diameter, 1.0 cm long portion of bowel tissue with multiple sutures and senthil. ??The tissue is erythematous but no discrete lesions are noted on section. ??Office Sweeper tissue is submitted in cassette B1. FINAL DIAGNOSIS: A) PROXIMAL/DESCEND ING COLOSTOMY, RESECTION: ? - COLOSTOMY WITHOUT DIAGNOSTIC ABNORMALITY. B) COLON, ANASTOMOTIC DONUTS, EXCISION: ? - COLONIC TISSUE WITHOUT DIAGNOSTIC ABNORMALITY. Electronically Signed Out ? Jay Cabezas M.D. [facility] Tissue specimen (specimen) COLON STRUCTURE / Unknown 09/22/2021 1:00 PM [employer] Comment:Reverse ostomy Tissue specimen (specimen) COLON STRUCTURE / Unknown 09/22/2021 2:00 PM [employer] us Margarita Sloan MD PATHOLOGY/CYTOLOGY ORDERABLE S Final Result [facility] [address] [place] [id number], [phone] documented in this encounter Visit Diagnoses Not on filedocumented in this encounter Admitting Diagnoses Diagnosis S/P [...] from all sources in 24 hours., Post-Op amLODIPine (NORVASC) tablet 5 mg 5 mg, Oral, Daily, First dose on 09/27/21 at 1645, Until Discontinued Given 10/02/2021 8:26 AM [employer] 5 mg Given 10/01/2021 8:04 AM [employer] 5 mg Given 09/30/2021 8:41 AM [employer] 5 mg BUpivacaine 0.25%-EPINEPHrine 1:200,000-lidocaine 1%-EPINEPHrine 1:100,000 solution As needed, Starting on Mon09/22/21 at 1335, Until Mon09/22/21 at 1446, Intra-Op Given 09/22/2021 1:35 PM [employer] 5 mLs Operative Site ceFAZolin (ANCEF) in NS 1000 mL irrigation solution As needed, Starting on Mon09/22/21 at 0956, Until Mon09/22/21 at 1446, Intra-Op Given 09/22/2021 9:56 AM [employer] 3 g Operative Site diphenhydrAMINE (BENADRYL) injection 25 mg 25 mg, Intravenous, Every 6 hours PRN, Itching, Starting on Mon09/22/21 at 1550, Until 10/02/21 at 1701, For IV administration, give no faster than 25 mg/min. enoxaparin (LOVENOX) 40 MG/0.4ML syringe 40 mg 40 mg, Subcutaneous, Every 24 hours, First dose on Yamilex 09/23/21 at 1600, Until Discontinued, Administer by deep SubQ injection alternating between the left or right anterolateral and left or right posterolateral abdominal wall., Post-Op Given 10/01/2021 4:01 PM [employer] 40 mg Left Lower Abdomen Given 09/30/2021 3:44 PM [employer] 40 mg Le ft Lower Abdomen Given 09/29/2021 4:12 PM [employer] 40 mg Ri ght Lower Abdomen HYDROcodone-acetaminophen (NORCO) 5-325 MG tablet 1 tablet 1 tablet, Oral, Every 4 hours PRN, Moderate pain (Scale 4 - 7), Starting on Yamilex 09/23/21 at 1200, Until 10/02/21 at 1701, Administer as Analgesic choice number moderate., Post-Op Given 09/24/2021 8:27 AM [employer] 1 tablet Given 09/23/2021 11:23 PM [employer] 1 tablet HYDROmorphone (DILAUDID) injection 0.5 mg [...] oral analgesic, Post-Op Given 09/24/2021 3:16 AM [employer] 1 mg Given 09/23/2021 9:19 PM [employer] 1 mg Given 09/23/2021 2:36 AM [employer] 1 mg indocyanine green (IC-GREEN) injection As needed, Starting on Mon09/22/21 at 1407, Until Mon09/22/21 at 1446, Intra-Op Given 09/22/2021 2:07 PM [employer] 5 mg metoclopramide (REGLAN) injection 10 mg 10 mg, Intravenous, Every 6 hours, First dose (after last modification) on 09/27/21 at 0900, Until Discontinued, Discontinue IV Reglan once able to take PO, Post-Op Given 10/02/2021 8:25 AM [employer] 10 mg Given 10/02/2021 3:02 AM [employer] 10 mg Given 10/01/2021 9:46 PM [employer] 10 mg metoprolol tartrate (LOPRESSOR) tablet 50 mg 50 mg, Oral, Every 8 hours, First dose (after last modification) on Mon09/26/21 at 1900, Until Discontinued Given 10/02/2021 12:57 PM [employer] 50 mg Given 10/02/2021 3:02 AM [employer] 50 mg Given 10/01/2021 7:38 PM [employer] 50 mg ondansetron (ZOFRAN) injection 4 mg 4 mg, Intravenous, Every 8 hours PRN, Nausea, Vomiting, Starting on Mon09/22/21 at 1607, Until 10/02/21 at 1701, Discontinue IV Zofran once able to take PO, Post-Op Given 09/24/2021 8:27 AM [employer] 4 mg Given 09/24/2021 12:45 AM [employer] 4 mg oxyCODONE-acetaminophen (PERCOCET) 5-325 MG tablet [...] least 2 minutes. Given 10/02/2021 8:25 AM [employer] 40 mg Given 10/01/2021 8:05 AM [employer] 40 mg Given 09/30/2021 8:41 AM [employer] 40 mg phenol (CHLORASEPTIC) spray 1 spray 1 spray, Mouth/Throat, As needed, Pain, Starting on 09/25/21 at 2325, Until 10/02/21 at 1701 Given 09/28/2021 2:53 AM [employer] 1 spray Given 09/26/2021 7:58 PM [employer] 1 spray Given 09/25/2021 11:33 PM [employer] 1 spray prochlorperazine (COMPAZINE) injection 10 mg 10 mg, [...] ondansetron or metoclopramide Given 09/24/2021 11:51 AM [employer] 10 mg sodium chloride 0.9% bolus infusion SOLN 500 mL 500 mL, Intravenous, Administer over 60 Minutes, PRN, if urine output less than 30 mL/ hr, Starting on 09/22/21 at 1607, Until 10/02/21 at 1701, May repeat x 1 in first 24 hours for post-op only, Post-Op documented in this encounter Active and Recently Administered Medications Times are shown in [employer]. Scheduled Medication Order 09/30/2021 10/01/2021 10/02/2021 amLODIPine [...] Ketty Palacios RN)2013 (Given - Provider: Flor Calloway RN) 0318 (Given - Provider: Flor Calloway RN)0804 (Given - Provider: Ketty Palacios RN)1601 (Given - Provider: Ketty Stewart RN)2146 (Given - Provider: Joan Rios, GINA) 0302 (Given - Provider: Joan Rios, GINA)0825 (Given - Provider: Annette Jorge RN)1500 (Canceled [...] Rios, GINA) 0302 (Given - Provider: Joan Rios, GINA)1257 (Given - Provider: Annette Jorge RN - [...] infusion). 0223 (New Bag - Provider: Jesi Torres, RN)0642 (Infusion Stop Time - Provider: Jesi [...] 09/25/21 at 2325, Until 10/02/21 at 1701 prochlorperazine [...] Post-Op documented in this encounter Care Teams Environmental Services Technician Relationship Specialty Start Date End Date Lorie Castanon MD PCP - General INTERNAL MEDICINE 01/15/20 02/09/23 documented as of this encounter
--- OUTSIDE RECORDS SUMMARY | 2024-11-02 08:06 | XMS_ITS | Encounter Summary ---
Author Organization [facility] Address [address] [place] [address]. [place] [address] [place] [address] Care Team Providers Care Unix Systems Administrator Name Role Phone Lorie Chan MD Primary Care Provider [phone] Encounter Details Date Type Department Care Team (Late st Contact Info) Description 08/23/[address] 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 Family & Internal Medicine [facility] [id number] [place] [phone] [place] [address] [place], [place] [id number] 10/22/2025 9:15 AM DIGITAL MEASUREMENT ADVISOR Office Visit [facility] [phone] Mily Gan MD [facility] [address] [place] [address] documented as of this encounter Goals Goal Patient Goal Type Associated Problems Recent Progress Patient-Stated? Author Establish Plan for Symptom Monitoring General Jesi Lagunas i RN Monitor - demonstrates appropriate technique of care of indwelling urinary catheter and new ostomy General No Jesi Cochran RN documented as of this encounter Visit Diagnoses Diagnosis Status post Neel procedure ([facility])- Primary Perforated diverticulum documented in this encounter Care Teams Unix Systems Administrator Relationship Specialty Start Date End Date Lorie Chan MD PCP - General INTERNAL MEDICINE 01/15/20 02/09/23 documented as of this encounter
--- OUTSIDE RECORDS SUMMARY | 2024-11-02 08:06 | XMS_ITS | Encounter Summary ---
Author Organization [facility] Address [address] [place] [address]. 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 Author Establish Plan for Symptom Monitoring General Jesi Lagunas i, RN Monitor - demonstrates appropriate technique of care of indwelling urinary catheter and new ostomy General Jesi Ye RN documented as of this encounter Visit Diagnoses Diagnosis Prophylactic antibiotic- Primary Encounter for long-term (current) use of antibiotics documented in this encounter Care Teams Manager Laundry Relationship Specialty Start Date End Date Lorie Chan MD PCP - General INTERNAL MEDICINE 01/15/20 02/09/23 documented as of this encounter
--- OUTSIDE RECORDS SUMMARY | 2024-11-02 08:07 | XMS_ITS | Encounter Summary ---
Author Organization [facility] Address [address] [place] [address]. 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 No / Unsure 08/18/2021 1:44 PM CDT documented as of this encounter [...] [facility] Family & Internal Medicine [facility] [address] [place] [address] [place] [address] [place] [address] 10/22/2025 9:15 AM RAIL TRANSIT OPERATOR Office Visit [facility] [phone] Mily Gan MD [address] [address] documented as of this encounter Goals Goal Patient Goal Type Associated Problems Recent Progress Patient-Stated? Author Establish Plan for Symptom Monitoring General Jesi Lagunas i, RN Monitor - demonstrates appropriate technique of care of indwelling urinary catheter and new ostomy General No Jesi Cochran RN documented as of this encounter Visit Diagnoses Not on filedocumented in this encounter Care Teams Ordnance Artificer Helper Relationship Specialty Start Date End Date Lorie Chan MD PCP - General INTERNAL MEDICINE 01/15/20 02/09/23 documented as of this encounter
--- OUTSIDE RECORDS SUMMARY | 2024-11-02 08:07 | XMS_ITS | Encounter Summary ---
Author Organization [facility] Address [address] [place] [address]. [place] [address] [place] [address] Care Team Providers Care Strategic Planning Analyst Name Role Phone Jeermy Castanon MD Primary Care Provider Reason for Visit * Auth/Cert Specialty Diagnoses / Procedures Referred By Shelby jama Referred To Contact Diagnoses status post neel Procedures colonoscopy via rectum and ostomy Referral ID Status Reason Start Date Expiration Date Visits Re quested Visits Authorized [id number] 1 1 Encounter Details Date Type Department Care Team (Late st Contact Info) Description 08/13/2021 9:00 AM CDT - 08/13/2021 9:51 AM CDT Surgery [facility] [address] [place] [address] Margarita Sloan MD [address] [address] colonoscopy via rectum and ostomy with polypectomy and biopsy Surgery Details Date/Time Status Location OR Service Patient Class Case Class Case Type Trauma Case? 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 No / Unsure 08/13/2021 8:20 AM CDT documented as of this encounter Last Filed Vital Signs Vital Sign Reading Time Taken Comments Blood Pressure 137/73 08/13/2021 8:36 AM CDT Pulse 73 08/13/2021 8:36 AM CDT Temperature 36.1 ??C (97 ??F) 08/13/2021 8:36 AM CDT Respiratory Rate 18 08/13/2021 8:36 AM CDT Oxygen Saturation 99% 08/13/2021 8:36 AM CDT Inhaled Oxygen Concentration - - Weight 72.6 kg (160 lb) 08/06/2021 1:43 PM CDT Height - - Body Mass Index 25.06 07/23/2021 1:17 PM CDT documented in this encounter Functional [...] Assessment Author Status No 03/18/2021 8:35 PM Polyl Clemons RN Active * Because of a physical, [...] Clemons RN Active documented in this encounter Discharge Instructions * Attachments The following attachments cannot be sent through Care Everywhere. * Colonoscopy Discharge Instructions (Sol[place] Islander) * Moderate Sedation in Adults Discharge Instructions ([place] Islander) documented in this encounter Medications at Time [...] GOAL 90 tablet 1 1 05/02/20 22 Casanthranol-Docusa te Sodium (LAXATIVE-STOOL SOFTNER OR) 09/22/20 21 CPAP SUPPLIESIndications :RANDY on CPAP 1 Units by Does not apply route nightly at bedtime. Mask, tubing & filters 1 Device 3 0 10/09/20 24 HYDROcodone-acetami nophen 5-325 MG tabletIndications:A cute Pain < 7 Day Supply Take 1 tablet by mouth every 6 (six) hours as needed for Pain. Indications: Acute Pain < 7 Day Supply 20 tablet 1 09/22/20 21 Na sulfate-K sulfate-Mg sulfate (SUPREP BOWEL PREP KIT) 17.5-3.13-1.6 GM/177ML SolutionIndications :Status post Neel procedure ([facility]) Take 177 mLs by mouth every 12 (twelve) hours. Pour ONE (1) 6-ounce bottle of SUPREP liquid into the mixing container. Add cool drinking water to the 16-ounce line on the container and mix. Have the patient Drink: ALL the liquid in the container, then drink two (2) more 16-ounce containers of water over the next 1 hour. 1 mL 1 09/22/20 21 simethicone (GAS-X EXTRA STRENGTH) 125 MG chewable tabletIndications:G as Pain Chew 125 mg by mouth every 6 (six) hours as needed. Indications: Gas Pain 1 01/12/20 22 documented as of this encounter Progress Notes * Cindy Farah RN - 08/13/2021 10:40 AM CDT Here for colonoscopy. Tolerated well. Verbalized understanding to d/c instructions. documented in this encounter H&P Notes * Margarita Sloan MD - 08/13/2021 9:00 AM CDT HISTORY AND PHYSICAL INTERVAL NOTE: I have reviewed Mandie Cotter History & Physical which was performed within the past 30 days. After examining Mandie Pavan Cotter, no change has occurred in the patient's condition since the H&P was completed. Informed Consent Discussion: Potential benefits, risks, and side effects of the patient's procedure/surgery; the likelihood of the patient achieving his or her goals; and any potential problems that might occur during recuperation were discussed with the patient/family/personal traffic representative. Reasonable alternatives to the patient's proposed procedure/surgery including benefits, risks, and side effects related to the alternatives and the risks related to not receiving the proposed care were also discussed with the patient/family/personal traffic representative. Questions were answered and the patient/family/personal traffic representative verbalized understanding and desires to proceed. Source Note - Margarita Sloan MD - 07/23/2021 1:00 PM CDT Reason for Visit: Follow Up (status post neel procedure/ (03/23/2021)) History of Present Illness: Mandie Cotter is a 66-year-old male status post Hudson's procedure for perforated diverticulitis in March 2021. Patient is doing well with the colostomy. He is here to schedule a colonoscopy prior to colostomy reversal. He states that he had to stop his stool softener because he was getting diarrhea. He states that about a week ago, he noticed some perianal pain that radiated to the proximal right lower extremity. He denied any other pertinent issues or concerns. ROS: Review [...] RANDY), Disp: 1 Device, Rfl: 3 ??? HYDROcodone-acetaminophen 5-325 MG tablet, Take 1 tablet by mouth every 6 (six) hours as neededfor Pain. Indications: Acute Pain < 7 Day Supply, Disp: 20 tablet, Rfl: 0 ??? Na sulfate-K sulfate-Mg sulfate (SUPREP BOWEL [...] r/t perferation ??? COLONOSCOPY N/A 2013 ??? COLOSTOMY reversable ??? H[facility] REPAIR [facility] ??? HERNIA REPAIR [facility] ??? NECK/CHEST PROCEDURE UNLISTED Right [facility], re-built right side of neck. ??? SMALL INTESTINE SURGERY bowel rupture ??? TOTAL KNEE ARTHROPLASTY Bilateral ZANA Partial KR, done @ [facility] Social History Tobacco Use ??? Smoking [...] Comments: Stoma is pink and viable with stool. Musculoskeletal: General: No tenderness or deformity. Normal range of motion. Cervical back: Normal range of motion and neck supple. Right lower leg: No edema. Left lower leg: No edema. Skin: General: Skin is warm and dry. Findings: No rash. Neurological: Mental Status: He is alert and oriented to person, place, and time. Psychiatric: Mood and Affect: Mood normal. Behavior: Behavior normal. Vitals: 07/23/21 1317 Patient Position: Sitting BP Location: Left arm Cuff size: Adult Regular BP: 138/70 Pulse: 79 Body mass index is 25.06 kg/m??. Diagnoses/Impression: 1. Status post Neel procedure ([facility]) Recommendations and Plan: Mandie Cotter 66-year-old male status post Hudson's procedure. He is here for a colonoscopy through the ostomy and rectum prior to reanastomosis. Risks, benefits and alternatives of a colonoscopythrough the stoma and rectum have been discussed with patient including but not limited to abdominal discomfort, bleeding, infection, perforation, aspiration, missed lesions, drug reaction, pulmonaryor cardiac issues, risk of delayed diagnosis of postprocedural complications, possible need for further procedure or surgery. Ample time was given for questions and all questions have been answered. Patient has been scheduled for a colonoscopy. Prep instructions provided. Consent will be signed on the day of procedure. I advised a Dulcolax suppository the day before, fleets enema the night before and morning of colonoscopy. His has been advised to do it gently. She states that she knows how to do it quite welland verbalized understanding. I did advise that if the perianal pain continues, I will order a CT of the abdomen and pelvis. He will let me know if it persists. Thank you very much for this referral and for allowing me to participate in the care of your patient. I spent 30 minutes today reviewing the patient's medical record, obtaining history, performing an exam, ordering medications, tests, and/or procedures, documenting in the medical record, counseling and educating the patient/family/caregiver and coordination of care. Margarita Sloan MD Referring Provider: Dustin PCP: JEREMY CASTANON MD documented in this encounter OR Notes * Op Note - Margarita Sloan MD - 08/13/2021 10:47 AM CDT Colonoscopy Procedures Patient name: Mandie Cotter Date of : 1955 [place] Time out Complete: Yes Consent Obtained: Yes Surgeon: Margarita Sloan MD Wardrobe Mistress: Circulating Nurse 1: Cyn Burleson RN Scrub Person 1: Heather Nicole RN Anesthesia Present: Yes Type of Anesthesia: Monitored Anesthesia Care Mechanical Ventilation: No Medication Used: Refer to anesthesia notes Pre-Procedure Diagnosis: Colon cancer screening Post Procedure Diagnosis: Hyperplastic appearing rectal polyps, mild proctitis Date of Last Colonoscopy: Over 10 years ago Colonoscopy: Complete colonoscopy through stoma and rectum Quality of prep: Excellent Dixon bowel prep score 9 Procedure Device: Fiber-optic flexible Approach: Stoma and rectum Procedure Performed: Complete colonoscopy inspection for stoma and rectum with cold biopsy polypectomies and random cold biopsies Cecal Intubation: Yes Electrocautery Used: No Specimens to Laboratory: Rectal polyps, rectal mucosa biopsy Withdraw time: 7 minutes or over EBL: Minimal INTRODUCTION: Patient is a 66-year-old male with a Hudson's procedure (emergently performed for perforated diverticulitis) here for a colonoscopy. INDICATION: Screening colonoscopy PROCEDURE: Complete colonoscopy through stoma and rectum ENDOSCOPE: Olympus 190 ASA: 2 COMPLICATIONS: No immediate complications PRE-ANESTHESIA ASSESSMENT: Patient is alert and oriented. No change in history and physical. After reviewing the risks and benefits, the patient was deemed in satisfactory condition to undergo the procedure. DESCRIPTION OF PROCEDURE: The risks, benefits and alternatives of the procedure were discussed with the patient in the officeincluding but not limited to bleeding, perforation, possible need for further procedure or surgery.I discussed the visual limitations (especially with prep difficulties). Ample time was given for que stions and all questions were answered and informed consent was obtained. The patient was taken to the endoscopy suite and was placed in a supine position after appropriate sedation. A lubricated colonoscope was introduced through the left-sided stoma under direct vision and advanced into the remainder of the left colon, splenic flexure, transverse colon, hepatic flexure, right colon and into the cecum. Cecal landmarks (transillumination in the right lower quadrant, identification of ileocecal valve, appendiceal orifice and cecal strap) were clearly identified and appeared normal. The ileocecal valve was visualized and appeared normal. Patient was then placed in a right lateral position (this was the most convenient position due to position of the monitors) Digital rectal exam was performed and was normal. A lubricated colonoscope was then introduced through the anus, rectum and rectosigmoid area. The staple line was noted. I withdrew the scope while carefully examining the mucosa of the entire colon. When stated that a polyp was removed, it was removed in its entirety unless otherwise indicated. Hemostasis checked and achieved. No diverticuli noted. Findings: Cecum: normal Ileocecal Valve: normal Ascending Colon: normal Hepatic Flexure: normal Transverse Colon: normal Splenic Flexure: normal Descending Colon: Normal (partially resected) Sigmoid Colon: Small sigmoid stump remaining, normal. Rectum: abnormal (hyperplastic appearing polyps and focal linear area of erythema, may be from prep; 15 cm stump length) Anal canal: abnormal (hemorrhoids) The rectum on forward view and retroflexed view revealed evidence of mild internal hemorrhoids and no other anorectal pathology. Air was removed from the colon and the scope retrieved. Scope withdrawal time was at least 7 minutes. The patient tolerated the procedure well and was sent to the recovery room in stable condition. RECOMMENDATIONS: -Await pathology -Okay to proceed with takedown of colostomy Margarita Sloan MD 08/13/2021 documented in this encounter Plan of Treatment Upcoming Encounters Date Type Department Care Team (Late st Contact Info) Description 01/27/2025 7:00 AM CDT Office Visit [facility] Family & Internal Medicine - [place] [id number] [place] [phone] [place] [id number] [place] [id number] 10/22/2025 9:15 AM CIRCUITRY NEGATIVE INSPECTOR Office Visit [facility] [phone] Mily Gan MD [address] [address] documented as of this encounter Goals Goal Patient Goal Type Associated Problems Recent Progress Patient-Stated? Author Establish Plan for Symptom Monitoring General No Jesi Mixon i, RN Monitor - demonstrates appropriate technique of care of indwelling urinary catheter and new ostomy General No Jesi Cochran RN documented as of this encounter Procedures Procedure Name Priority Date/Time Associated Diagnosis Comments COLONOSCOPY DIAGNOSTIC WITH/WITHOUT SPECIMEN BRUSH/WASH 08/13/2021 9:13 AM CDT status post neel Special Needs 0830 PATHOLOGY Routine 08/13/2021 12:00 AM CDT documented in this encounter Results * Pathology (08/13/2021 12:00 AM CDT) PATHOLOGY [facility] ? Department of Laboratory Medicine ?[address] ?[place] [address] ? , extension [phone] ? Pathology Report ? Surgical Pathology Report Name: MANDIE COTTER ? Specimen #: [id number] Age: 9 1955 (Age: 66) ?Location: [facility] Sex: M ?Procedure Date: 08/13/2021 [facility] #: [id number] ?Date Received: 08/16/2021 Date Reported: 08/17/2021 Provider: MARGARITA SLOAN MD Source: A: Rectosigmoid polyps B: Rectosigmoid, inflamed area, biopsy C: Rectum, polyps Clinical History: Status post Neel. Gross Description: Received in three parts: A) Received in formalin, labeled with a patient label and as hyperplastic rectosigmoid polyps are three pieces of warren tissue each 0.2 cm. ??The specimen is entirely submitted in cassette A1. B) Received in formalin, labeled with a patient label and as random biopsy inflamed areas rectosigmoid is a 0.3 cm piece of warren tissue. ??The specimen is entirely submitted in cassette B1. C) Received in formalin, labeled with a patient label and as hyperplastic rectal polyps are four pieces of warren tissue ranging from 0.2 to 0.3 cm. ??The specimen is entirely submitted in cassette C1. FINAL DIAGNOSIS: A) COLON, HYPERPLASTIC RECTOSIGMOID POLYPS , BIOPSY: ? - HYPERPLASTIC POLYP. ? - COLONIC MUCOSA WITH PROMINENT REACTIVE LYMPHOID AGGREGATE. B) COLON, INFLAMED AREA RECTOSIGMOID , BIOPSY: ? - COLONIC MUCOSA WITH PROMINENT REACTIVE LYMPHOID AGGREGATE. C) COLON, HYPERPLASTIC RECTAL POLYPS , BIOPSY: ?- HYPERPLASTIC POLYPS. ?? Electronically Signed Out ? Paulo Melton M.D. [facility] Tissue specimen (specimen) COLON STRUCTURE / Unknown 08/13/2021 9:50 AM CDT Tissue specimen (specimen) COLON STRUCTURE / Unknown 08/13/2021 9:52 AM CDT Tissue specimen (specimen) COLON STRUCTURE / Unknown 08/13/2021 9:53 AM CDT us Margarita Sloan MD PATHOLOGY/CYTOLOGY ORDERABLE S Final Result [facility] [address] [place] [address], [place] [phone] [id number] documented in this encounter Visit Diagnoses Not on filedocumented in this encounter Administered Medications Inactive Administered Medications - up to 3 most recent administrations Medication Order MAR Action Action Date Dose Rate Site lactated ringers infusion at 10 mL/hr, Intravenous, Continuous, Starting on Mon08/13/21 at 0845, Until Mon08/13/21 at 1247, Infuse at TKO rate, Pre-Op Restarted 08/13/2021 9:51 AM CDT New Bag 08/13/2021 8:47 AM CDT 10 mL/hr documented in this encounter Active and Recently Administered Medications Times are shown in CDT. Continuous Medication Order 08/11/2021 08/12/2021 08/13/2021 lactated ringers infusion at 10 mL/hr, Intravenous, Continuous, Starting on Mon08/13/21 at 0845, Until Mon08/13/21 at 1247, Infuse at TKO rate, Pre-Op 0847 (New Bag - Prov ider: Cindy Farah RN)0950 (Paused - Provider: Mandie Paul CRNA - Comment: Switch to gravity)0951 (Restarted - Provider: Mandie Paul CRNA)1033 (Infusion Stop Time - Provider: Cindy Farah, GINA) documented in this encounter Care Teams Strategic Planning Analyst Relationship Specialty Start Date End Date Jeremy Castanon MD PCP - General INTERNAL MEDICINE 01/15/20 02/09/23 documented as of this encounter
--- OUTSIDE RECORDS SUMMARY | 2024-11-02 08:07 | XMS_ITS | Encounter Summary ---
Author Organization [facility] Address [address] [place] [address]. [place] [address] [place] [address] Care Team Providers Care Block Cuber Name Role Phone Lorie Castanon MD Primary Care Provider Reason for Visit * Reason Comments Postop Followup COLONOSCOPY(08/13/20) * Consultation (Routine) - Closed Specialty Diagnoses / Procedures Referred By Shelby jama Referred To Contact SURGERY Diagnoses 3 month follow up (also to discuss colonoscopy) Procedures FOLLOW UP Margarita Sloan MD [address] [facility] [address] [place] [address] Phone: tel: fax: Margarita Sloan MD [address] [facility] [address] [place] [address] Phone: tel: fax: Referral ID Status Reason Start Date Expiration Date Visits Re quested Visits Authorized [id number] Closed 07/23/2021 3 3 Encounter Details Date Type Department Care Team (Late st Contact Info) Description 08/20/2021 4:00 PM CDT Office Visit [facility] General Surgery [address], [address] [place] [address] Margarita Sloan MD [address] [place] [address] Postop Followup (COLONOSCOPY(08/13/20 21)) Social History Tobacco Use Types Packs/Day Years [...] on file 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 No / Unsure 08/20/2021 3:37 PM CDT documented as of this encounter Last Filed Vital Signs Vital Sign Reading Time Taken Comments Blood Pressure 122/62 08/20/2021 3:38 PM CDT Pulse 55 08/20/2021 3:38 PM CDT Temperature 35.9 ??C (96.6 ??F) 08/20/2021 3:38 PM CD T Respiratory Rate 16 08/20/2021 3:38 PM CDT Oxygen Saturation 99% 08/20/2021 3:38 PM CDT Inhaled Oxygen Concentration - - Weight 73 kg (161 lb) 08/20/2021 3:38 PM CDT Height 170.2 cm (5' 7 ) 08/20/2021 3:38 PM CDT Body Mass Index 25.22 08/20/2021 3:38 PM CDT documented in this encounter Functional [...] Progress Notes * Margarita Sloan MD - 08/20/2021 4:00 PM CDTAddended by: MARGARITA SLOAN on: 08/20/2021 07:06 PM Modules accepted: Orders, SmartSet * Margarita Sloan MD - 08/20/2021 4:00 PM CDT Reason for Visit: Postop Followup (COLONOSCOPY(08/13/2021)) History of Present Illness: Natan Patel is a 66-year-old male who is status [...] He denies any pertinent issues or concerns. ROS: Review of [...] 1 hour., Disp: 354 mL, Rfl: 0 Allergies Allergies Allergen Reactions ??? Morphine Itching [...] biopsy performed by Margarita Sloan MD at [facility] OR ??? COLOSTOMY reversable ??? HERNIA REPAIR Right [facility] ??? HERNIA REPAIR Left [facility] ??? NECK/CHEST PROCEDURE UNLISTED Right [facility], re-built right side of neck. ??? SMALL INTESTINE SURGERY bowel rupture ??? TOTAL KNEE ARTHROPLASTY Bilateral ZANA Partial KR, done @ [facility] Social History Tobacco Use ??? Smoking [...] Affect: Mood normal. Behavior: Behavior normal. Vitals: 08/20/21 1538 Patient Position: Sitting BP Location: Left arm Cuff size: Adult Regular BP: 122/62 Pulse: 55 Body mass index is 25.22 kg/m??. Diagnoses/Impression: 1. Colostomy in place ([facility]) Recommendations and Plan: Natan Patel is a 66-year-old male status post Hudson's procedure, status post colonoscopy viastoma and rectum. He is here to schedule reversal. Risks, benefits, alternatives and complications of a laparoscopic possible open reversal of Hudson's was discussed with patient including but not limited to bleeding, infection, wound healing issues, incisional hernia, anastomotic leak, injury to ureter, vessels, intestine, stomach, spleen, bladder, fistula formation, abscess formation, possibleneed for further procedures surgery, reaction to anesthesia, pulmonary or cardiac complications, DVT. He verbalized understanding and wishes to proceed. Consent will be signed on the day of procedure. A respiratory call being followed. I spent 35 minutes today reviewing the patient's medical record, obtaining history, performing an exam, ordering medications, tests, and/or procedures, documenting in the medical record, counseling and educating the patient/family/caregiver, reviewing and communicating test results and coordinationof care. Margarita Sloan MD Referring Provider: Dustin PCP: LORIE CASTANON MD documented in this encounter Plan of Treatment Upcoming Encounters Date Type Department Care Team (Late st Contact Info) Description 01/27/2025 7:00 AM CDT Office Visit [facility] Family & Internal Medicine [address] [address] Ilir Nelson PA [address] [place] [phone] 10/22/2025 9:15 AM PARTRIDGE FARMER Office Visit [facility] [address] Mily Gan MD [address] [phone] documented as of this encounter Goals Goal Patient Goal Type Associated Problems Recent Progress Patient-Stated? Author Establish Plan for Symptom Monitoring General Jesi Lagunas i, RN Monitor - demonstrates appropriate technique of care of indwelling urinary catheter and new ostomy General Jesi Ye, RN documented as of this encounter Visit Diagnoses Diagnosis Colostomy in place (CMS/HCC [facility])- Primary Colostomy status documented in this encounter Care Teams Block Cuber Relationship Specialty Start Date End Date Lorie Castanon MD PCP - General INTERNAL MEDICINE 01/15/20 02/09/23 documented as of this encounter
--- OUTSIDE RECORDS SUMMARY | 2024-11-02 08:07 | XMS_ITS | Encounter Summary ---
Author Organization [facility] Address [address] [place] [address]. 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 No / Unsure 01/11/2022 8:25 AM SATELLITE DISH INSTALLER documented as of this encounter Functional Status [...] 8:35 PM Polly Clemons RN Active * Because of a [...] or making decisions? No 10/02/2021 12:38 PM Annette Mercer RN Active * Because of a physical, [...] [facility] Family & Internal Medicine [facility] [address] [place] [address] [place] [address] [place] [address] 10/22/2025 9:15 AM SATELLITE DISH INSTALLER [facility] [address] [place] [address] Mily Gan MD [facility] [address] [place] [address] documented as of this encounter [...] Comments COLONOSCOPY GENERIC (SCAN ORDER) Routine 08/13/2021 documented in this encounter Results * COLONOSCOPY (08/13/2021) us Documents Scanned SCANNING Final Result [facility] documented in this encounter Visit Diagnoses Not on filedocumented in this encounter Care Teams Environmental Field Services Technician Relationship Specialty Start Date End Date Lorie Chan MD PCP - General INTERNAL MEDICINE 01/15/20 02/09/23 Moraima Toledo RN [address] [place] [address] Delivery Truck Driver (Ambulatory) REGISTERED NURSE 09/23/21 documented as of this encounter
--- OUTSIDE RECORDS SUMMARY | 2024-11-02 08:07 | XMS_ITS | Encounter Summary ---
Author Organization [facility] Address [address] [place] [address]. 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 Gender Identity Not on file Sexual [...] Progress Notes * Tyler Caballero MA - 08/20/2021 4:07 PM CDT SUPREP documented in this encounter Plan of Treatment Upcoming Encounters Date Type Department Care Team (Late st Contact Info) Description 01/27/2025 7:00 AM CDT Office Visit [facility] Family & Internal Medicine [facility] [address] [place] [address] [place] [address] [place] [address] 10/22/2025 9:15 AM PLANT ATTENDANT OR ASSISTANT OPERATOR Office Visit [facility] [address] [place] [address] Mily Gan MD [facility] [address] [place] [address] documented as of this encounter Goals Goal Patient Goal Type Associated Problems Recent Progress Patient-Stated? Author Establish Plan for Symptom Monitoring General Jesi Lagunas i, RN Monitor - demonstrates appropriate technique of care of indwelling urinary catheter and new ostomy General Jesi Ye, RN documented as of this encounter Visit Diagnoses Diagnosis Status post Neel procedure ([facility])- Primary documented in this encounter Care Teams Resaw Carriage Operator Relationship Specialty Start Date End Date Lorie Chan MD PCP - General INTERNAL MEDICINE 01/15/20 02/09/23 documented as of this encounter
--- OUTSIDE RECORDS SUMMARY | 2024-11-02 08:07 | XMS_ITS | Encounter Summary ---
Author Organization [facility] Address [address] [place] [address]. 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 Author Establish Plan for Symptom Monitoring General Jesi Lagunas i, RN Monitor - demonstrates appropriate technique of care of indwelling urinary catheter and new ostomy General No Jesi Cochran RN documented as of this encounter Visit Diagnoses Not on filedocumented in this encounter Care Teams Marketing Production Manager Relationship Specialty Start Date End Date Lorie Chan MD PCP - General INTERNAL MEDICINE 01/15/20 02/09/23 documented as of this encounter
--- OUTSIDE RECORDS SUMMARY | 2024-11-02 08:07 | XMS_ITS | Encounter Summary ---
Author Organization [facility] Address [address] [place] [address]. [place], [place] [address] [place] [address] Care Team Providers Care Prison Guard Name Role Phone Lorie Chan MD Primary Care Provider [phone] Reason for Visit * Auth/Cert Specialty Diagnoses / Procedures Referred By Shelby jama Referred To Contact Diagnoses status post mehul Procedures colonoscopy via rectum and ostomy Referral ID Status Reason Start Date Expiration Date Visits Re quested Visits Authorized [id number] 1 1 Encounter Details Date Type Department Care Team (Late st Contact Info) Description 08/13/2021 9:14 AM CDT Anesthesia Event [facility] [address] [place] [address] Natan Paul CRNA [address] [place] [address] Bharti Juarez CRNA [address] [place] [address] Anesthesia Record Procedure Summary Procedure Name Responsible Anesthesiologist Anesthesia Start Time Anesthesia Stop Time colonoscopy via rectum and ostomy with polypectomy and biopsy (Colon) Natan Paul CRNA 08/13/21 0914 08/13/21 1000 Events Date Time Event Comment 08/13/2021 0831 0831 AN Anesthesia Prepped 0831 AN NEUROPHYSIOLOGIST Prepped 0914 An Start Patient ID and consent checked and patient reassessed. 0914 An Start Data 0914 AN Immediate Reassess The pa tient was reevaluated immediately before sedation or regional anesthesia. 09 Face Mask Applied 09 Anesthesia Ready 1000 An Stop 1000 an stop data Meds Name Total lidocaine (PF) (XYLOCAINE) 1% injection 50 mg propofol (DIPRIVAN) 200 mg/20 mL injecti on 258.85 mg lactated ringers infusion 150 mL * Agents Name O2 * Blood No blood administrations on file. 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 Gender Identity Not on file Sexual Orientation [...] in this encounter OR Notes * Anesthesia Preprocedure Evaluation - Natan Paul CRNA - 08/09/2021 8:29 AM CDT Anesthesia ROS/MED History Reviewed: Patient summary , Nursing notes , ECG, Family history anesthesia, Anesthesia history , Medications Pre-Anesthetic State: alert, awake and responds appropriately Pulmonary (+) sleep apnea, (CPAP), smoker Cardiovascular (+) hyperlipidemia Neuro/Psych neg neuro/psych ROS (+) substance use, (alcohol use) GI/Hepatic/Renal neg GI/hepatic/renal ROS Endo/Other neg endo/other ROS GENERAL COMMENTS Cervical stenosis Physical Evaluation Airway Mallampati: II TM Distance: >3 FB Neck ROM: normal Dental (upper dentures) Comment: Dentures removed Pulmonary Pulmonary exam normal Cardiovascular Rhythm: regular Rate: normal Cardiovascular exam normal Anesthesia Plan ASA 2 Intravenous Induction Anesthesia type: MAC Plan for Airway: nasal cannula/simple face mask Informed Consent Anesthetic plan and risks discussed with patient of whom consent was obtained. . Cosigned by Federico Mayer MD at 08/20/2021 9:29 AM CDT Associated attestation - Federico Mayer MD - 08/20/2021 9:29 AM CDT I am certifying my agreement with the anesthesia plan of care and will be supervising the administration of anesthesia. documented in this encounter Plan of Treatment Upcoming Encounters Date Type Department Care Team (Late st Contact Info) Description 01/27/2025 7:00 AM CDT Office Visit [facility] Medical [facility] Family & Internal Medicine [address] [address] [place] [phone] [place] [id number] 10/22/2025 9:15 AM WINDOWS SYSTEMS ARCHITECT Office Visit [facility] [address] Mily Gan MD [address] [phone] documented as of this encounter Goals Goal Patient Goal Type Associated Problems Recent Progress Patient-Stated? Author Establish Plan for Symptom Monitoring General No Jesi Mixon i, RN Monitor - demonstrates appropriate technique of care of indwelling urinary catheter and new ostomy General No Jesi Cochran, RN documented as of this encounter Visit [...] Bag 08/13/2021 8:47 AM CDT 10 mL/hr lidocaine (PF) (XYLOCAINE) 1 % injection Intravenous, PRN, Starting on Mon08/13/21 at 0919, Until Mon08/13/21 at 1000, Anesthesia Intra-Op Given 08/13/2021 9:19 AM CDT 50 mg propofol (DIPRIVAN) IV bolus Intravenous, Continuous PRN, Starting on Mon08/13/21 at 0920, Until Mon08/13/21 at 1000, Anesthesia Intra-Op Rate/Dose Change 08/13/2021 9:47 AM CDT 50 mcg/kg/min 21.78 mL/hr Rate/Dose Change 08/13/2021 9:25 AM CDT 120 mcg/kg/min 52. 272 mL/hr Given 08/13/2021 9:24 AM CDT 20 mg documented in this encounter Care Teams Prison Guard Relationship Specialty Start Date End Date Lorie Chan MD PCP - General INTERNAL MEDICINE 01/15/20 02/09/23 documented as of this encounter
--- OUTSIDE RECORDS SUMMARY | 2024-11-02 08:07 | XMS_ITS | Encounter Summary ---
Author Organization [facility] Address [address] [place] [address]. [place], [place] [address] [place] [address] Care Team Providers Care Juvenile Counselor Name Role Phone Lorie Chan MD Primary Care Provider [phone] Encounter Details Date Type Department Care Team (Latest Contact Info) Description 08/13/2021 Travel Social History Tobacco Use Types Packs/Day [...] on file Legal Sex Male 9:58 PM PHARMACOVIGILANCE SPECIALIST Gender Identity Not on file Sexual [...] Description 01/27/2025 7:00 AM CDT Office [facility] Family & Internal Medicine [facility] [address] [place] [address] [place] [address] [place] [address] 10/22/2025 9:15 AM PHARMACOVIGILANCE SPECIALIST Office Visit [facility] [address] Mily Gan MD [address] [address] documented as of this encounter Goals Goal Patient Goal Type Associated Problems Recent Progress Patient-Stated? Author Establish Plan for Symptom Monitoring General Jesi Lagunas i, RN Monitor - demonstrates appropriate technique of care of indwelling urinary catheter and new ostomy General No Jesi Cochran RN documented as of this encounter Visit Diagnoses Not on filedocumented in this encounter Care Teams Juvenile Counselor Relationship Specialty Start Date End Date Lorie Chan MD PCP - General INTERNAL MEDICINE 01/15/20 02/09/23 documented as of this encounter
--- OUTSIDE RECORDS SUMMARY | 2024-11-02 08:08 | XMS_ITS | Encounter Summary ---
Author Organization [facility] Address [address] [place] [address]. [place] [address] [place] [address] Care Team Providers Care Beater Dumper Name Role Phone Jeremy Castanon MD Primary Care Provider [phone] Reason for Visit * Auth/Cert Specialty Diagnoses / Procedures Referred By Shelby jama Referred To Contact Diagnoses status post neel Procedures colonoscopy via rectum and ostomy Referral ID Status Reason Start Date Expiration Date Visits Re quested Visits Authorized [id number] 1 1 Encounter Details Date Type Department Care Team (Latest Contact Info) Description 08/13/2021 8:20 AM CDT - 08/13/2021 10:47 AM CDT Hospital Encounter [facility] [address] [place] [address] Margarita Sloan MD [address] [facility] [address] [place] [address] Discharge Disposition: Home or Self Care (Routine [...] file Legal Sex Male 9:58 PM 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 No / Unsure 08/13/2021 8:20 AM CDT documented as of this encounter Last Filed Vital Signs Vital Sign Reading Time Taken Comments Blood Pressure 117/78 08/13/2021 10:15 AM CDT Pulse 69 08/13/2021 10:00 AM CDT Temperature 36.1 ??C (97 ??F) 08/13/2021 8:36 AM CDT Respiratory Rate 18 08/13/2021 10:15 AM CDT Oxygen Saturation 97% 08/13/2021 10:15 AM CDT Inhaled Oxygen Concentration - - [...] Oliveira RN Active documented in this encounter Discharge Instructions * Attachments The following attachments cannot be sent through Care Everywhere. * Colonoscopy Discharge Instructions ([place]) * Moderate Sedation in Adults Discharge Instructions ([place]) documented in this encounter Medications at Time [...] 17.5-3.13-1.6 GM/177ML SolutionIndications :Status post Neel procedure ([facility]) Take 177 mLs by mouth every 12 [...] the past 30 days. After examining Mandie Cotter, no change has occurred in the patient's condition since the H&P was completed. Informed Consent Discussion: Potential benefits, risks, and side effects of the patient's procedure/surgery; the likelihood of the patient achieving his or her goals; and any potential problems that might occur during recuperation were discussed with the patient/family/personal correspondence representative. Reasonable alternatives to the patient's proposed procedure/surgery including benefits, risks, and side effects related to the alternatives and the risks related to not receiving the proposed care were also discussed with the patient/family/personal correspondence representative. Questions were answered and the patient/family/personal correspondence representative verbalized understanding and desires to proceed. [...] COLOSTOMY reversable ??? HERNIA REPAIR Right [facility] ??? HERNIA REPAIR Left [facility] ??? NECK/CHEST PROCEDURE UNLISTED Right [facility], re-built right side of neck. ??? SMALL INTESTINE SURGERY bowel rupture ??? TOTAL KNEE ARTHROPLASTY Bilateral ZANA Partial KR, done @ [facility] Social History Tobacco Use ??? Smoking [...] kg/m??. Diagnoses/Impression: 1. Status post Neel procedure ([facility]) Recommendations and Plan: Mandie Cotter 66-year-old male [...] name: Mandie Cotter Date of : 1955 [place] Time out Complete: Yes Consent Obtained: Yes Surgeon: Margarita Sloan MD Professor Of Chemistry: Circulating Nurse 1: Cyn Burleson RN Scrub Person 1: Heather Nicole RN Anesthesia Present: Yes Type of Anesthesia: Monitored Anesthesia Care Mechanical Ventilation: No Medication Used: Refer to anesthesia notes Pre-Procedure Diagnosis: Colon cancer screening Post Procedure Diagnosis: Hyperplastic appearing rectal polyps, mild proctitis Date of Last Colonoscopy: Over 10 years ago Colonoscopy: Complete colonoscopy through stoma and rectum Quality of prep: Excellent [place] bowel prep score 9 Procedure Device: Fiber-optic [...] Description 01/27/2025 7:00 AM CDT Office Visit [facility] Group Family & Internal Medicine [facility] [address] [place] [address] [place] [address] [place] [phone] 10/22/2025 9:15 AM SOFTWARE LICENSING EXECUTIVE Office Visit [facility] [address] Mily Gan MD [address] [phone] documented as of this encounter Goals Goal [...] * Pathology (08/13/2021 12:00 AM CDT) PATHOLOGY [facility] ? Department of Laboratory Medicine ?[address] [facility] ?[place] [address] ? , extension [phone] ? Pathology Report ? Surgical Pathology Report Name: MANDIE COTTER ? Specimen #: [id number] Age: 9 1955 (Age: 66) ?Location: [facility] Sex: M ?Procedure Date: 08/13/2021 Hospital #: [id number] ?Date Received: 08/16/2021 Date Reported: 08/17/2021 Provider: [...] Electronically Signed Out ? Paulo Melton M.D. [facility] Tissue specimen (specimen) COLON STRUCTURE / Unknown 08/13/2021 9:50 AM CDT Tissue specimen (specimen) COLON STRUCTURE / Unknown 08/13/2021 9:52 AM CDT Tissue specimen (specimen) COLON STRUCTURE / Unknown 08/13/2021 9:53 AM CDT us Margarita Sloan MD PATHOLOGY/CYTOLOGY ORDERABLE S Final Result [facility] [address] [place] [address], [id number] documented in this encounter Visit Diagnoses Not [...] CRNA)1033 (Infusion Stop Time - Provider: Cindy Farah RN) documented in this encounter Care Teams Beater Dumper Relationship Specialty Start Date End Date Jeremy Castanon MD PCP - General INTERNAL MEDICINE 01/15/20 02/09/23 documented as of this encounter
--- OUTSIDE RECORDS SUMMARY | 2024-11-02 08:08 | XMS_ITS | Encounter Summary ---
Author Organization [facility] Address [address] [place] [address]. [place], [place] [address] [place] [address] Care Team Providers Care Special Projects Coordinator Name Role Phone Lorie Chan MD Primary Care Provider [phone] Encounter Details Date Type Department Care Team (Latest Contact Info) Description 07/14/2021 Travel Social History Tobacco Use Types Packs/Day [...] have Coronavirus / COVID-19? No / Unsure 07/14/2021 7:47 AM CDT documented as of this encounter [...] [facility] Family & Internal Medicine [facility] [address] [place] [address] [place] [address] [place] [address] 10/22/2025 9:15 AM PHARMACOVIGILANCE SPECIALIST Office Visit [facility] [address] Mily Gan MD [address] [address] documented as of this encounter Goals Goal Patient Goal Type Associated Problems Recent Progress Patient-Stated? Author Establish Plan for Symptom Monitoring General Jesi Lagunas i, RN Monitor - demonstrates appropriate technique of care of indwelling urinary catheter and new ostomy General No Jesi Cochran RN documented as of this encounter Visit Diagnoses Not on filedocumented in this encounter Care Teams Special Projects Coordinator Relationship Specialty Start Date End Date Lorie Chan MD PCP - General INTERNAL MEDICINE 01/15/20 02/09/23 documented as of this encounter
--- OUTSIDE RECORDS SUMMARY | 2024-11-02 08:08 | XMS_ITS | Encounter Summary ---
Author Organization [facility] Address [address] [place] [address]. [place] [address] [place] [address] Care Team Providers Care Mortgage Or Loan Underwriter Name Role Phone Jeremy Castanon MD Primary Care Provider [phone] Reason for Visit * Reason Comments Follow Up status post neel procedure/ (03/23/2021) * Consultation (Routine) - Closed Specialty Diagnoses / Procedures Referred By Shelby jama Referred To Contact SURGERY Diagnoses 3 month follow up (also to discuss colonoscopy) Procedures FOLLOW UP Federico Amador MD [address] [place] [address] Phone: tel: fax: Federico Amador MD [address] [place] [address] Phone: tel: fax: Referral ID Status Reason Start Date Expiration Date Visits Re quested Visits Authorized [id number] Closed 07/23/2021 3 3 Encounter Details Date Type Department Care Team (Late st Contact Info) Description 07/23/2021 1:00 PM CDT Office Visit [facility] General Surgery [address], [address] [place] [address] Federico Amador MD [address] [place] [address] Follow Up (status post neel procedure/ (03/23/2021)) Social History Tobacco Use Types Packs/Day Years [...] on file Legal 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 No / Unsure 07/23/2021 12:56 PM CDT documented as of this encounter Last Filed Vital Signs Vital Sign Reading Time Taken Comments Blood Pressure 138/70 07/23/2021 1:17 PM CDT Pulse 79 07/23/2021 1:17 PM CDT Temperature 36.3 ??C (97.3 ??F) 07/23/2021 1:17 PM CD T Respiratory Rate 16 07/23/2021 1:17 PM CDT Oxygen Saturation 97% 07/23/2021 1:17 PM CDT Inhaled Oxygen Concentration - - Weight 72.6 kg (160 lb) 07/23/2021 1:17 PM CDT Height 170.2 cm (5' 7 ) 07/23/2021 1:17 PM CDT Body Mass Index 25.06 07/23/2021 1:17 PM [...] PM AYANNAT Polly Oliveira RN Active documented as of this encounter Mental Status * Because of a physical, mental, or emotional condition, do you have serious difficulty concentrating, remembering, or making decisions? Answer Entry Date Author Status No 03/18/2021 8:35 PM CDT Polly Oliveira RN Active documented in this encounter Progress Notes * Federico Amador MD - 07/23/2021 1:00 PM CDT Reason for Visit: Follow Up (status post neel procedure/ (03/23/2021)) History of Present Illness: Natan aPtel is a 66-year-old male status post Hudson's [...] COLOSTOMY reversable ??? HERN[facility]PAIR [facility] ??? HERNIA REPAIR Left [facility] ??? NECK/CHEST PROCEDURE UNLISTED Right [facility], re-built right side of neck. ??? SMALL INTESTINE SURGERY bowel rupture ??? TOTAL KNEE ARTHROPLASTY Bilateral ZANA Partial KR, done @ [facility] Social History Tobacco Use ??? Smoking status: [...] kg/m??. Diagnoses/Impression: 1. Status post Neel procedure ([facility]) Recommendations and Plan: Natan Patel 66-year-old male status post Hudson's procedure. He [...] JEREMY CASTANON MD documented in this encounter Plan of Treatment Upcoming Encounters Date Type Department Care Team (Late st Contact Info) Description 01/27/2025 7:00 AM CDT Office Visit [facility] Family & Internal Medicine [facility] [address] [place] [address] [place] [address] [place], [place] [id number] 10/22/2025 9:15 AM DIRECTOR OF ACQUISITION MARKETING Office Visit [facility] [address] Mily Gan MD [address] [address] documented as of this encounter Goals Goal Patient Goal Type Associated Problems Recent Progress Patient-Stated? Author Establish Plan for Symptom Monitoring General No Jesi Mixon i RN Monitor - demonstrates appropriate technique of care of indwelling urinary catheter and new ostomy General No Jesi Cochran, RN documented as of this encounter Visit Diagnoses Diagnosis Status post Neel procedure ([facility])- Primary documented in this encounter Care Teams Mortgage Or Loan Underwriter Relationship Specialty Start Date End Date Jeremy Castanon MD PCP - General INTERNAL MEDICINE 01/15/20 02/09/23 documented as of this encounter
--- OUTSIDE RECORDS SUMMARY | 2024-11-02 08:08 | XMS_ITS | Encounter Summary ---
Author Organization [facility] Address [address] [place] [address]. [place] [address] [place] [address] Care Team Providers Care High Speed Warper Tender Name Role Phone Lorie Chan MD Primary Care Provider [phone] Reason for Visit * Reason Onset Date Comments Insurance Coverage 08/10/2021 Encounter Details Date Type Department Care Team (Late st Contact Info) Description 08/10/2021 Telephone [facility] General Surgery - [place] [address] [facility] [place] [address] Federico Mayer MD [address] [facility] [address] [place] [address] Insurance Coverage Social History Tobacco Use Types Packs/Day Years [...] on file Legal 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 Sent a note to Thais and waiting to hear what she has to say. documented in this encounter Plan of Treatment Upcoming Encounters Date Type Department Care Team (Late st Contact Info) Description 01/27/2025 7:00 AM CDT Office Visit [facility] Family & Internal Medicine - [place] [address] [place] [address] [place] [address] [place] [address] 10/22/2025 9:15 AM PMO PROJECT MANAGER Office Visit [facility] [address] Mily Gan MD [place] [address] [place] [address] documented as of this encounter Goals Goal Patient Goal Type Associated Problems Recent Progress Patient-Stated? Author Establish Plan for Symptom Monitoring General No Jesi Mixon i RN Monitor - demonstrates appropriate technique of care of indwelling urinary catheter and new ostomy General No Jesi Cochran RN documented as of this encounter Visit Diagnoses Not on filedocumented in this encounter Care Teams High Speed Warper Tender Relationship Specialty Start Date End Date Lorie Chan MD PCP - General INTERNAL MEDICINE 01/15/20 02/09/23 documented as of this encounter
--- OUTSIDE RECORDS SUMMARY | 2024-11-02 08:08 | XMS_ITS | Encounter Summary ---
Author Organization [facility] Address [address] [place] [address]. 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 [address] [place] [address] Phone: tel: fax: [facility] General Surgery [address], [address] [address] Phone: tel: fax: Referral ID Status Reason Start Date Expiration Date Visits Re quested Visits Authorized [id number] Closed 07/26/2021 08/25/2022 1 1 Encounter Details Date Type Department Care Team (Late st Contact Info) Description 07/26/2021 Prep for Procedure [address], [address] [place] [address] Margarita Sloan MD [address] 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 Medical Group Family & Internal Medicine [facility] [address] [place] [address] [place] [address] [place], [place] [phone] 10/22/2025 9:15 AM BOILER TENDERS SUPERVISOR Office Visit [facility] [address] Mily Gan MD [address] [id number] Scheduled Orders Name Type Priority Associated Diagnoses Orde r Schedule Case request operating room: colonoscopy via rectum and ostomy Case Request Routine Once for 1 Occurrences starting 07/26/2021 until 07/26/2021 documented as of this encounter Goals Goal Patient Goal Type Associated Problems Recent Progress Patient-Stated? Author Establish Plan for Symptom Monitoring General Jesi Lagunas i, RN Monitor - demonstrates appropriate technique of care of indwelling urinary catheter and new ostomy General No Jesi Cochran RN documented as of this encounter Visit Diagnoses Diagnosis Status post Neel procedure ([facility])- Primary documented in this encounter Care Teams Equipment Tech Relationship Specialty Start Date End Date Lorie Chan MD PCP - General INTERNAL MEDICINE 01/15/20 02/09/23 documented as of this encounter
--- OUTSIDE RECORDS SUMMARY | 2024-11-02 08:08 | XMS_ITS | Encounter Summary ---
Author Organization [facility] Address [address] [place] [address]. 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 Author Establish Plan for Symptom Monitoring General No Jesi Mixon i, RN Monitor - demonstrates appropriate technique of care of indwelling urinary catheter and new ostomy General No Jesi Cochran RN documented as of this encounter Visit Diagnoses Not on filedocumented in this encounter Care Teams Choker Hooker Relationship Specialty Start Date End Date Lorie Chan MD PCP - General INTERNAL MEDICINE 01/15/20 02/09/23 documented as of this encounter
--- OUTSIDE RECORDS SUMMARY | 2024-11-02 08:08 | XMS_ITS | Encounter Summary ---
Author Organization [facility] Address [address] [place] [address]. 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 Author Establish Plan for Symptom Monitoring General Jesi Lagunas i RN Monitor - demonstrates appropriate technique of care of indwelling urinary catheter and new ostomy General No Jesi Cochran RN documented as of this encounter Visit Diagnoses Diagnosis Status post Neel procedure ([facility])- Primary documented in this encounter Care Teams Waist Presser Relationship Specialty Start Date End Date Lorie Chan MD PCP - General INTERNAL MEDICINE 01/15/20 02/09/23 documented as of this encounter
--- OUTSIDE RECORDS SUMMARY | 2024-11-02 08:08 | XMS_ITS | Encounter Summary ---
Author Organization [facility] Address [address] [place] [address]. 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 Author Establish Plan for Symptom Monitoring General Jesi Lagunas i, RN Monitor - demonstrates appropriate technique of care of indwelling urinary catheter and new ostomy General No Jesi Cochran RN documented as of this encounter Visit Diagnoses Not on filedocumented in this encounter Care Teams Top Precipitator Operator Relationship Specialty Start Date End Date Lorie Chan MD PCP - General INTERNAL MEDICINE 01/15/20 02/09/23 documented as of this encounter
--- OUTSIDE RECORDS SUMMARY | 2024-11-02 08:08 | XMS_ITS | Encounter Summary ---
Author Organization [facility] Address [address] [place] [address]. 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 * Denise Dasilva - 08/09/2021 1:15 PM CDT Patient is calling, very upset, states he got a letter for [employer] stating that [facility] is no longer a provider, states he has a procedure scheduled for Monday? He does not no what to do. States somethingin the letter about transition of care. Wants to speak to you. Thank You documented in this encounter Plan of Treatment Upcoming Encounters Date Type Department Care Team (Late st Contact Info) Description 01/27/2025 7:00 AM CDT Office Visit [facility] Family & Internal Medicine [facility] [address] [place] [address] [place] [address] [place], [place] [phone] 10/22/2025 9:15 AM DYNAMITER Office Visit [facility] [address] [address] Mily Gan MD [address] [phone] documented as of this encounter Goals Goal Patient Goal Type Associated Problems Recent Progress Patient-Stated? Author Establish Plan for Symptom Monitoring General No Jesi Mixon i, RN Monitor - demonstrates appropriate technique of care of indwelling urinary catheter and new ostomy General No Jesi Cochran RN documented as of this encounter Visit Diagnoses Not on filedocumented in this encounter Care Teams Production Operations Engineer Relationship Specialty Start Date End Date Lorie Chan MD PCP - General INTERNAL MEDICINE 01/15/20 02/09/23 documented as of this encounter
--- OUTSIDE RECORDS SUMMARY | 2024-11-02 08:09 | XMS_ITS | Encounter Summary ---
Author Organization [facility] Address [address] [place] [address]. [place] [address] [place] [address] Care Team Providers Care Refrigeration Houseman Name Role Phone Lorie Castanon MD Primary Care Provider [phone] Reason for Visit * Reason Comments Postop Followup colon resection(03/07) Encounter Details Date Type Department Care Team (Late st Contact Info) Description 04/23/2021 1:00 PM CDT Office Visit [facility] General Surgery [address], [address] [place] [address] Federico Amador MD [address] [place] [address] Postop Followup (colon resection(04/02/2021) ) Social History Tobacco Use Types Packs/Day Years Used Date Smoking Tobacco: Every Day Cigarettes Smokeless Tobacco: Never Alcohol Use Standard Drinks/Week Comments Yes 3.3 [...] on file 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 No / Unsure 04/23/2021 12:54 PM CDT documented as of this encounter Last Filed Vital Signs Vital Sign [place] Time Taken Comments Blood Pressure 104/70 04/23/2021 1:08 PM CDT Pulse 81 04/23/2021 1:08 PM CDT Temperature 36.3 ??C (97.3 ??F) 04/23/2021 1:08 PM CD T Respiratory Rate 16 04/23/2021 1:08 PM CDT Oxygen Saturation 95% 04/23/2021 1:08 PM CDT Inhaled Oxygen Concentration - - Weight 72 kg (158 lb 12.8 oz) 04/23/2021 1:08 PM CDT Height 170.2 cm (5' 7 ) 04/23/2021 1:08 PM CDT Body Mass Index 24.87 04/23/2021 1:08 PM CDT documented in this encounter Functional [...] Progress Notes * Federico Amador MD - 04/23/2021 1:00 PM CDT Reason for Visit: Postop Followup (colon resection(04/02/2021)) History of Present Illness: Natan Patel is a 65-year-old male status post Hudson's procedure for perforated sigmoid diverticulitis. He is doing well and denies any issues or concerns whatsoever. His ostomy does have formed stool in it. No urinary issues. He is eating well. He states his last colonoscopy was well over 10years ago. ROS: Review of Systems Constitutional: Negative. HENT: [...] , Rfl: ??? atorvastatin 40 MG tablet, Take 1 tablet (40 mg total) by mouth nightly at bedtime. (Patient taking differently: Take 1 tablet by mouth nightly at bedtime. Indications: High Amount of Fats in theBlood), Disp: 90 tablet, Rfl: 1 ??? Cholecalciferol [...] RANDY), Disp: 1 Device, Rfl: 3 ??? simethicone (GAS-X EXTRA STRENGTH) 125 [...] Day Supply, Disp: 20 tablet, Rfl: 0 Allergies Allergies Allergen Reactions ??? Morphine Itching Past Medical History: Diagnosis Date ??? Arthritis ??? Cervical stenosis of spine ??? Hyperlipidemia ??? Influenza vaccine administered ??? RANDY (obstructive sleep apnea) Past Surgical History: Procedure Laterality Date ??? COLON SURGERY 03/18/2021 colostomy r/t perferation ??? COLONOSCOPY N/A 2013 ??? COLOSTOMY reversable ??? HERNIA REPAIR Right [facility] ??? H[facility] REPAIR Left [facility] ??? NECK/CHEST PROCEDURE UNLISTED Right [facility], re-built right side of neck. ??? SMALL INTESTINE SURGERY bowel rupture ??? TOTAL KNEE ARTHROPLASTY Bilateral ZANA Partial KR, done @ [facility] Social History Tobacco Use ??? Smoking status: Current Every Day Smoker Packs/day: 0.50 Types: Cigarettes ??? Smokeless tobacco: Never Used Substance Use Topics ??? Alcohol use: Yes [...] rebound. Hernia: No hernia is present. Comments: Left-sided stoma is pink and viable, there is stool. Otherwise unremarkable abdominal exam, well-healed midline incision. Musculoskeletal: General: No tenderness or deformity. Normal range of motion. Cervical back: Normal range of motion and neck supple. Right lower leg: No edema. Left lower leg: No edema. Skin: General: Skin is warm and dry. Findings: No rash. Neurological: Mental Status: He is alert and oriented to person, place, and time. Psychiatric: Behavior: Behavior normal. Vitals: 04/23/21 1308 Patient Position: Sitting BP Location: Left arm Cuff size: Adult Regular BP: 104/70 Pulse: 81 Body mass index is 24.87 kg/m??. Diagnoses/Impression: 1. Postoperative examination Recommendations and Plan: Natan Patel is a 65-year-old male status post Hudson's procedure for perforated sigmoid diverticulitis. Doing well. Follow-up in 3 months at which time we will discuss a colonoscopy prior to reversal. He verbalized understanding. Federico Amador MD Referring Provider: Dustin PCP: LORIE CASTANON MD documented in this encounter Plan of Treatment Upcoming Encounters Date Type Department Care Team (Late st Contact Info) Description 01/27/2025 7:00 AM CDT Office Visit [facility] Family & Internal Medicine - [address] [address] Ilir Nelson PA [address] [place] [address] 10/22/2025 9:15 AM OUTREACH DIRECTOR Office Visit [facility] [phone] [place] [address] Mily Gan MD [facility] [address] [place], [place] [phone] documented as of this encounter Goals Goal [...] surgery documented in this encounter Care Teams Refrigeration Houseman Relationship Specialty Start Date End Date Lorie Castanon MD PCP - General INTERNAL MEDICINE 01/15/20 02/09/23 documented as of this encounter
--- OUTSIDE RECORDS SUMMARY | 2024-11-02 08:09 | XMS_ITS | Encounter Summary ---
Author Organization [facility] Address [address] [place] [address]. 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 No / Unsure 04/02/2021 1:29 PM CDT documented as of this encounter [...] Progress Notes * Tyler Caballero MA - 04/15/2021 3:49 PM CDT Talked to patient about his medication today. Patient is wanting a stool softner and I told him it is OTC. * Tracey Joe - 04/15/2021 9:39 AM CDT Pt called with a question about a med refill, Please call him back. documented in this encounter Plan of Treatment Upcoming Encounters Date Type Department Care Team (Late st Contact Info) Description 01/27/2025 7:00 AM CDT Office Visit [facility] Family & Internal Medicine [facility] [address] [place] [address] [place] [address] [place] [address] 10/22/2025 9:15 AM GLOBAL RECRUITER Office Visit [facility] [address] [address] Mily Gan MD [address] [id number] [place] [address] documented as of this encounter Goals Goal Patient Goal Type Associated Problems Recent Progress Patient-Stated? Author Establish Plan for Symptom Monitoring General No Jesi Mixon i, RN Monitor - demonstrates appropriate technique of care of indwelling urinary catheter and new ostomy General No Jesi Cochran, RN documented as of this encounter Visit Diagnoses Not on filedocumented in this encounter Care Teams Tube Bending Machine Operator Relationship Specialty Start Date End Date Lorie Chan MD PCP - General INTERNAL MEDICINE 01/15/20 02/09/23 documented as of this encounter
--- OUTSIDE RECORDS SUMMARY | 2024-11-02 08:09 | XMS_ITS | Encounter Summary ---
Author Organization [facility] Address [address] [place] [address]. 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 No / Unsure 06/01/2021 1:22 PM CDT documented as of this encounter [...] [facility] Family & Internal Medicine [facility] [address] [place] [address] [place] [address] [place], [place] [id number] 10/22/2025 9:15 AM HYDRAULIC PRESS TENDER Office Visit [facility] [address] Mily Gan MD [address] [address] documented as of this encounter Goals Goal Patient Goal Type Associated Problems Recent Progress Patient-Stated? Author Establish Plan for Symptom Monitoring General Jesi Lagunas i, RN Monitor - demonstrates appropriate technique of care of indwelling urinary catheter and new ostomy General Jesi Ye RN documented as of this encounter Visit Diagnoses Not on filedocumented in this encounter Care Teams Paleontology Teacher Relationship Specialty Start Date End Date Lorie Chan MD PCP - General INTERNAL MEDICINE 01/15/20 02/09/23 documented as of this encounter
--- OUTSIDE RECORDS SUMMARY | 2024-11-02 08:09 | XMS_ITS | Encounter Summary ---
Author Organization [facility] Address [address] [place] [address]. [place], [place] [address] [place] [address] Care Team Providers Care Maintenance Carpenter Name Role Phone Lorie Chan MD Primary Care Provider [phone] Encounter Details Date Type Department Care Team (Latest Contact Info) Description 07/07/2021 Travel Social History Tobacco Use Types Packs/Day [...] on file Legal Sex Male 9:58 PM STITCHER HAND Gender Identity Not on file Sexual Orientation Not on file COVID-19 Exposure Response Date Recorded In the last month, have you been in contact with someone who was confirmed or suspected to have Coronavirus / COVID-19? No / Unsure 07/07/2021 10:22 AM CDT documented as of this encounter [...] Family & Internal Medicine [facility] [address] [place] [address] [place] [address] [place] [address] 10/22/2025 9:15 AM STITCHER HAND Office Visit [facility] [address] Mily Gan MD [address] [address] documented as of this encounter Goals Goal Patient Goal Type Associated Problems Recent Progress Patient-Stated? Author Establish Plan for Symptom Monitoring General Jesi Lagunas i, RN Monitor - demonstrates appropriate technique of care of indwelling urinary catheter and new ostomy General No Jesi Cochran RN documented as of this encounter Visit Diagnoses Not on filedocumented in this encounter Care Teams Maintenance Carpenter Relationship Specialty Start Date End Date Lorie Chan MD PCP - General INTERNAL MEDICINE 01/15/20 02/09/23 documented as of this encounter
--- OUTSIDE RECORDS SUMMARY | 2024-11-02 08:09 | XMS_ITS | Encounter Summary ---
Author Organization [facility] Address [address] [place] [address]. 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 Patient concerns or urgent matters that need addressed: No Patient Status: Patient stated she is doing well with ostomy care and doesn't have any questions about it. Stated [facility] released him since he is independent with ostomy care. Stated he left a message for office to call him back today. Stated she ordered him a stimulant 8.6-50 mg take one by mouth daily, prn for constipation. Stated he is out and awaiting a phone call from her office to refill it. Confirmed upcoming appointment with on 04/28/21. Encouraged to contact office before that time if needed. Patient verbalizes understanding. This will complete care clinician's phone calls at this time. Plan of Care: Follow up with on 04/28/21 or call before that time if needed. Goals: Patient will monitor symptoms and report any changes. Monitor: Demonstrates appropriate technique of care of new ostomy Upcoming Visit Appointments: Future Appointments Date Time Provider Department Center 04/23/2021 1:00 PM Federico Mayer MD [facility] 04/28/2021 11:00 AM Lorie Chan MD [facility] 07/14/2021 8:00 AM Lorie Chan MD [facility] Quality care gaps: Health Maintenance Topic Date Due ??? Colorectal Cancer Screening Colonoscopy (10 Years) Never done ??? ZOSTER (1 of 2) Never done ??? Medicare Wellness Visit Never done ??? DTaP, Tdap and Td Vaccines (2 - Td) 01/04/2030 ??? AAA SCREENING Completed ??? Influenza Adult Completed ??? Pneumococcal ages 65 years and older Completed ??? COVID-19 Vaccine Completed ??? MENINGOCOCCAL VACCINE Aged Out Problem List: Patient Active Problem List Diagnosis ??? Cervical stenosis of spinal canal ??? H/O nicotine dependence ??? Hyperlipidemia ??? RANDY on CPAP ??? Pharyngoesophageal dysphagia ??? Bowel perforation (CMS/[facility]) ??? Perforated diverticulum ??? Status post Neel procedure ([facility]) Medications: Current Outpatient Medications Medication Sig Dispense Refill ??? Ascorbic Acid (VITAMIN C) 100 MG tablet Take 100 mg by mouth daily. Indications: Vitamin and/orMineral Deficiency ??? aspirin 81 MG chewable tablet Chew 81 mg by mouth daily. Indications: Anticoagulant Therapy ??? atorvastatin 40 MG tablet Take 1 tablet (40 mg total) by mouth nightly at bedtime. (Patient taking differently: Take 1 tablet by mouth nightly at bedtime. Indications: High Amount of Fats in the Blood) 90 tablet 1 ??? Cholecalciferol (VITAMIN D) 50 MCG (1999 [place]) Cap Take 25 mcg by mouth daily. Indications: Vitamin D Deficiency ? ? CPAP SUPPLIES 1 Units by Does not apply route nightly at bedtime. Mask, tubing & filters (Patient taking differently: 1 Units by Does not apply route nightly at bedtime. Mask, tubing & filters Indications: RANDY) 1 Device 3 ??? HYDROcodone-acetaminophen 5-325 MG tablet Take 1 tablet by mouth every 6 (six) hours as needed for Pain. Indications: Acute Pain < 7 Day Supply 20 tablet 0 ??? simethicone (GAS-X EXTRA STRENGTH) 125 MG chewable tablet Chew 125 mg by mouth every 6 (six) hours as needed. Indications: Gas Pain ??? Vitamin E 400 units Tab Take 400 Units by mouth daily. Indications: Nutritional Support ??? zinc gluconate 50 MG Tab Take 1 tablet by mouth daily. Indications: Nutritional Support No current facility-administered medications for this visit. 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 Author Establish Plan for Symptom Monitoring General No Jesi Mixon i RN Monitor - demonstrates appropriate technique of care of indwelling urinary catheter and new ostomy General No Jesi Cochran RN documented as of this encounter Visit Diagnoses Not on filedocumented in this encounter Care Teams Cast Shell Grinder Relationship Specialty Start Date End Date Lorie Chan MD PCP - General INTERNAL MEDICINE 01/15/20 02/09/23 documented as of this encounter
--- OUTSIDE RECORDS SUMMARY | 2024-11-02 08:09 | XMS_ITS | Encounter Summary ---
Author Organization [facility] Address [address] [place] [address]. 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 Author Establish Plan for Symptom Monitoring General Jesi Lagunas i, RN Monitor - demonstrates appropriate technique of care of indwelling urinary catheter and new ostomy General No Jesi Cochran RN documented as of this encounter Visit Diagnoses Not on filedocumented in this encounter Care Teams Irrigationist Relationship Specialty Start Date End Date Lorie Chan MD PCP - General INTERNAL MEDICINE 01/15/20 02/09/23 documented as of this encounter
--- OUTSIDE RECORDS SUMMARY | 2024-11-02 08:09 | XMS_ITS | Encounter Summary ---
Author Organization [facility] Address [address] [place] [address]. [place], [place] [address] [place] [address] Care Team Providers Care Shop Lead Name Role Phone Lorie Castanon MD Primary Care Provider [phone] Reason for Visit * Reason Comments Follow Up QPA 6 MONTH FOLLOW U P / LABS / AND OTHER ISSUES Encounter Details Date Type Department Care Team (Late st Contact Info) Description 07/14/2021 8:00 AM CDT Office Visit [facility] Family & Internal Medicine 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 No / Unsure 07/14/2021 7:47 AM CDT documented as of this encounter Last Filed Vital Signs Vital Sign Reading Time Taken Comments Blood Pressure 128/68 07/14/2021 7:59 AM CDT Pulse 89 07/14/2021 7:59 AM CDT Temperature 36.2 ??C (97.2 ??F) 07/14/2021 7:59 AM CD T Respiratory Rate 16 07/14/2021 7:59 AM CDT Oxygen Saturation 97% 07/14/2021 7:59 AM CDT Inhaled Oxygen Concentration - - Weight 72.6 kg (160 lb) 07/14/2021 7:59 AM CDT Height 170.2 cm (5' 7 ) 07/14/2021 7:59 AM CDT Body Mass Index 25.06 07/14/2021 7:59 AM CDT documented in this encounter Functional [...] documented in this encounter Progress Notes * Marysol Talamantes LPN - 07/14/2021 8:00 AM CDTAddended by: MARYSOL TALAMANTES on: 07/14/2021 04:18 PM Modules accepted: Orders, SmartSet * Lorie Castanon MD - 07/14/2021 8:00 AM CDT Reason for Visit: Follow Up (QPA 6 MONTH FOLLOW UP / LABS / AND OTHER ISSUES) Follow Up Pertinent negatives include no chest pain. 65-year-old male here today to discuss lab results & a few issues like nocturis His father young of premature coronary artery [...] or LOYA. Ostomy intact after GI perforation, needs scope & reconnection, he is very excited about havingthis done. Review of Systems Constitutional: Negative. HENT: Negative. Eyes: Negative. Respiratory: Negative. RANDY on CPAP Cardiovascular: Negative. Negative for chest pain. Gastrointestinal: Ostomy intact Genitourinary: Positive for frequency. Nocturia Musculoskeletal: Positive for joint pain. Right elbow and other joints see HPI Skin: Negative. Neurological: Negative. Psychiatric/Behavioral: [...] Rfl: ??? Cholecalciferol (VITAMIN D) 50 MCG (1999) Cap, Take 25 mcg by mouth daily. [...] Supply, Disp: 20 tablet, Rfl: 0 ??? simethicone (GAS-X EXTRA [...] ??? COLOSTOMY reversable ??? HERNIA REPAIR Right [facility] ??? HERNIA REPAIR Left [facility] ??? NECK/CHEST PROCEDURE UNLISTED Right [facility], re-built right side of neck. ??? SMALL INTESTINE SURGERY bowel rupture ??? TOTAL KNEE ARTHROPLASTY Bilateral ZANA Partial KR, done @ [facility] Social History Socioeconomic History ??? Marital [...] 1 a day, a couple puffs. Substance and Sexual Activity ??? Alcohol use: Yes Alcohol/week: 3.3 standard drinks Types: 2 Cans of beer per week Comment: daily ??? Drug use: Never ??? Sexual activity: Not Currently Partners: Female Other Topics Concern ??? Not on file Social History Narrative LIVE AT HOME WITH Social Determinants of Health Financial Resource Strain: ??? Difficulty of Paying Living Expenses: Food Insecurity: ??? Worried About Running Out of Food in the Last Year: ??? Ran Out of Food in the Last Year: Transportation Needs: ??? Lack of Transportation (Medical): ??? Lack of Transportation (Non-Medical): Physical Activity: ??? Days of Exercise per Week: ??? Minutes of Exercise per Session: Stress: ??? Feeling of Stress : Social Connections: ??? Frequency of Communication with Friends and Family: ??? Frequency of Social Gatherings with Friends and Family: ??? Attends Buddhism Services: ??? Active Member of Clubs or Organizations: ??? Attends Club or Organization Meetings: ??? Marital Status: Intimate Partner Violence: ??? Fear of Current or Ex-Partner: ??? Emotionally Abused: ??? Physically Abused: ??? Sexually Abused: Family History Problem Relation Name Age of Onset ??? Arthritis in Adults Mother ??? Dementia Mother at the end per patient ??? Hypertension Mother ??? Cancer Father ??? Heart Father ??? Heart Disease Father ??? Cancer Brother ??? COPD Brother Family Status Relation Name Status ??? Mother ??? Father ??? Brother ??? Brother Alive Filed Vitals: 07/14/21 0759 BP: 128/68 Pulse: 89 Resp: 16 Temp: 97.2 ??F (36.2 ??C) TempSrc: Temporal SpO2: 97% Weight: 72.6 kg (160 lb) Height: 5' 7 (1.702 m) Body mass index is 25.06 kg/m??. Physical Exam Constitutional: He is oriented to person, place, and time. He appears well- developed and well-nourished. HENT: Head: Normocephalic. Eyes: Pupils are equal, round, and reactive to light. Conjunctivae are normal. Cardiovascular: Normal rate, regular rhythm and normal heart sounds. Pulmonary/Chest: Effort normal and breath sounds normal. Abdominal: Soft. Bowel sounds are normal. Ostomy intact Musculoskeletal: General: Normal range of motion. Cervical back: Neck supple. Neurological: He is alert and oriented to person, place, and time. No cranial nerve deficit. Skin: Skin is dry. Psychiatric: He has a normal mood and affect. Judgment normal. Results for MANDIE PATEL ( ) as of 07/14/2021 08:41 Ref. Range 07/07/2021 10:38 CHOLESTEROL Latest Ref Range: <200.0 MG/DL 137 CHOL/HDL RATIO Latest Ref Range: 0.0 - 4.5 2.6 HDL Latest Ref Range: >40.0 MG/DL 52 NON HDL CHOLESTEROL Latest Ref Range: <130 MG/DL 85 LDL (CALCULATED) Latest Ref Range: <100 MG/DL 66 TRIGLYCERIDE Latest Ref Range: <150 MG/DL 95 VLDL Calculation Latest Ref Range: 5 - 55 MG/DL 19 Assessment/PLAN 1. Mixed hyperlipidemia - atorvastatin 40 MG tablet; TAKE 1 TABLET NIGHTLY AT BEDTIME- CHANGE FROM PRAVASTATIN LOW DENSITY LIPOPROTEIN CHOLESTEROL NOT TO GOAL Dispense: 90 tablet; Refill: 1 Hyperlipidemia to goal, cont statin & recheck lipids in 1 year Continue healthy diet regular exercise and maintain normal body weight Osteoarthritis will give him meloxicam and he is doing well on this & requests a refills Update flu vaccine. D/C smoking, recommend has cut down but has not been able to quit yet. Doing well with his CPAP, good compliance, order supplies. Fu 6 months check bmp if not done by other specialist in spring and all labs in 1 year Follow up FU 6 MONTHS LORIE CASTANON MD 07/14/2021 8:53 AM documented in this encounter Plan of Treatment Upcoming Encounters Date Type Department Care Team (Late st Contact Info) Description 01/27/2025 7:00 AM CDT Office Visit [facility] Family & Internal Medicine [facility] [address] [place] [address] [place] [address] [place], [place] [id number] 10/22/2025 9:15 AM RECEPTION MANAGER Office Visit [facility] [address] [place] [address] Mily Gan MD [facility] [address] [place] [address] documented as of this encounter Goals Goal Patient Goal Type Associated Problems Recent Progress Patient-Stated? Author Establish Plan for Symptom Monitoring General Jesi Lagunas i, RN Monitor - demonstrates appropriate technique of care of indwelling urinary catheter and new ostomy General No Jesi Cochran RN documented as of this encounter Visit Diagnoses Diagnosis H/O nicotine dependence- Primary Personal history of tobacco use, presenting hazards to health Mixed hyperlipidemia Colostomy status ([facility]) Colostomy status BMI 25.0-25.9,adult Body Mass Index 25.0-25.9, adult Need for immunization against influenza Need for prophylactic vaccination and inoculation against influenza documented in this encounter Care Teams Shop Lead Relationship Specialty Start Date End Date Lorie Castanon MD PCP - General INTERNAL MEDICINE 01/15/20 02/09/23 documented as of this encounter
--- OUTSIDE RECORDS SUMMARY | 2024-11-02 08:09 | XMS_ITS | Encounter Summary ---
Author Organization [facility] Address [address] [place] [address]. 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 Indications: Nutritional Support 1 ATORVASTATIN 40 MG tabletIndications:M ixed hyperlipidemia TAKE 1 TABLET NIGHTLY AT BEDTIME- CHANGE FROM PRAVASTATIN LOW DENSITY LIPOPROTEIN CHOLESTEROL NOT TO GOAL 90 tablet 1 07/14/20 21 Casanthranol-Docusa te Sodium (LAXATIVE-STOOL SOFTNER OR) 09/22/20 [...] Day Supply 20 tablet 1 09/22/20 21 simethicone (GAS-X EXTRA STRENGTH) 125 MG chewable tabletIndications:G as Pain Chew 125 mg by mouth every 6 (six) hours as needed. Indications: Gas Pain 1 01/12/20 22 documented as of this encounter Plan of Treatment Upcoming Encounters Date Type Department Care Team (Late st Contact Info) Description 01/27/2025 7:00 AM CDT Office Visit [facility] Family & Internal Medicine [facility] [address] [place] [address] [place] [address] [place] [address] 10/22/2025 9:15 AM SERVOMECHANISM DESIGNER Office Visit [facility] [address] [place] [phone] Mily Gan MD [place] [place] [address] documented as of this encounter Goals Goal Patient Goal Type Associated Problems Recent Progress Patient-Stated? Author Establish Plan for Symptom Monitoring General Jesi Lagunas i, RN Monitor - demonstrates appropriate technique of care of indwelling urinary catheter and new ostomy General Jesi Ye RN documented as of this encounter Procedures Procedure Name Priority Date/Time Associated Diagnosis Comments VITAMIN B12 / FOLATE Routine 07/07/2021 10:38 AM CDT Mixed hyperlipidemia TSH W/REFLEX Routine 07/07/2021 10:38 AM CDT Mixed hyperlipidemia PROSTATE SPECIFIC ANTIGEN,SCREENING Routine 07/07/2021 10:38 AM CDT Prostate cancer screening COMPREHENSIVE METABOLIC PANEL Routine 07/07/2021 10:38 AM CDT Mixed hyperlipidemia LIPID PANEL Routine 07/07/2021 10:38 AM CDT Mixed hyperlipidemia CBC W/DIFF AUTOMATED Routine 07/07/2021 10:38 AM CDT Mixed hyperlipidemia documented in this encounter Results * (ABNORMAL) VITAMIN B12 / FOLATE (07/07/2021 10:38 AM CDT) VITAMIN B12 S/P/B 1,297(H) 193 - 986 PG/ML 07/07/2021 12:04 PM CDT [facility] FOLATE >20.0 8.6 - 58.9 NG/ML 07/07/2021 12:04 PM CDT [facility] 07/07/2021 10:3 8 AM CDT us Lorie Chan MD LABORATORY Final Result [facility] [address] [place] [address], [place] [phone] * TSH W/REFLEX (07/07/2021 10:38 AM CDT) TSH 1.649 0.358 - 3.74 uIU/ML 07/07/2021 12:04 PM CDT [facility] Comment: HIGH DOSES OF BIOTIN MAY INTERFERE WITH THIS TEST RESULT. CORRELATION TO CLINICAL HISTORY AND PRESENTATION RECOMMENDED. FREE T4 NOT INDICATED 07/07/2021 10:3 8 AM CDT us Lorie Chan MD LABORATORY Final Result Performing Organization Address [facility]/ZIP Co de Phone Number [facility] [address] [place] [address], [place] [phone] * PROSTATE SPECIFIC ANTIGEN,SCREENING (07/07/2021 10:38 AM CDT) PSA 1.10 <4.00 NG/ML 07/07/2021 11:22 AM CDT [facility] Comment: Test was performed using the Siemens method. ??Results obtained with other assay methods or kits cannot be used interchangeably with results obtained by the Siemens method. 07/07/2021 10:3 8 AM CDT us Lorie Chan MD LABORATORY Final Result Performing Organization Address City/[facility]/ZIP Co de Phone Number [facility] [address] [place] [address], [place] [phone] * LIPID PANEL (07/07/2021 10:38 AM CDT) CHOLESTEROL 137 <200.0 MG/DL 07/07/2021 12:04 PM CDT [facility] TRIGLYCERIDES 95 <150 MG/DL 07/07/2021 12:04 PM CDT [facility] HDL 52 >40.0 MG/DL 07/07/2021 12:04 PM [facility] LDL (CALCULATED) 66 <100 MG/DL 07/07/20 12:04 PM T [facility] NON HDL CHOLESTEROL 85 <130 MG/DL 07/07 12:04 [facility] CHOL/HDL RATIO 2.6 0.0 - 4.5 07/07/2021 12:04 [facility] VLDL CALCULATION 19 5 - 55 MG/DL 07/07/2021 12:04 PM [facility] LIPID INTERPRETATION 07/07/2021 12:04 [facility] Comment: [facility] REPORT RECOMMENDATIONS: ?ADULT ?CHILD ??LOW RISK: ?CHOLESTEROL ? <200 ? <170 ?TRIGLYCERIDE ?<150 ?--- ?HDL ? >=60 ?--- ?LDL ? <100 ? <110 ??BORDERLINE: ?CHOLESTEROL ? 200-239 ?? 170-199 ?TRIGLYCERIDE ?150-199 ? --- ?HDL ?40-59 ?--- ?LDL ? 100-159 ?? 110-129 ??HIGH RISK: ?CHOLESTEROL ? >=240 ?>=200 ?TRIGLYCERIDE ?>=200 ? --- ?HDL ?<40 ?--- ?LDL ? >=160 ?>=130 07/07/2021 10:3 8 AM CDT us Lorie Chan MD LABORATORY Final Result [facility] [address] [place] [address], * (ABNORMAL) COMPREHENSIVE METABOLIC PANEL (07/07/2021 10:38 AM CDT) GLUCOSE 100(H) 70 - 99 MG/DL 07/07/2021 12:04 PM CDT [facility] BUN 12 7 - 18 MG/DL 07/07/2021 12:04 PM CDT [facility] CREATININE S/P/B 0.95 0.7 - 1.3 MG/DL 07/07/2021 12:04 PM CDT [facility] SODIUM S/P/B 142 136 - 145 MMOL/L 07/07/2021 12:04 PM CDT [facility] POTASSIUM S/P/B 5.3(H) 3.5 - 5.1 MMOL/L 07/07/2021 12:04 PM CDT [facility] CHLORIDE S/P/B 106 100 - 108 MMOL/L 07/07/2021 12:04 PM CDT [facility] CO2 33.1(H) 21 - 32 MMOL/L 07/07/2021 12:04 PM CDT [facility] CALCIUM S/P/B 9.2 8.5 - 10.1 MG/DL 07/07/2021 12:04 PM [facility] BILIRUBIN TOTAL S/P/B 0.8 0.2 - 1.2 MG/DL 07/07/2021 12:04 PM [facility] TOTAL PROTEIN S/P/B 7.9 6.4 - 8.2 G/DL 07/07/2021 12:04 PM [facility] ALBUMIN S/P/B 3.7 3.4 - 5.0 G/DL 07/07/2021 12:04 PM [facility] AST 24 15 - 37 U/L 07/07/2021 12:04 PM [facility] ALT 30 16 - 60 U/L 07/07/2021 12:04 PM [facility] ALKALINE PHOSPHATASE S/P/B 53 50 - 136 U/L 07/07/2021 12:04 PM [facility] ANION GAP 2.9(L) 5 - 15 MMOL/L 07/07/2021 12:04 PM [facility] BUN CREATININE RATIO 12.6 6 - 26 07/07/2021 12:04 PM [facility] A/G RATIO 0.9(L) 1.0 - 2.0 RATIO 07/07/2021 12:04 PM [facility] EGFR NON-AFR. AMER. 83(L) >90 ML/MIN/1.7 3 M2 07/07/2021 12:04 PM [facility] EGFR AFR. AMER. >90 >90 ML/MIN/1.7 3 M2 07/07/2021 12:04 PM [facility] Comment: NOTE: eGFR is not calculated for patients <18 years of age. This is an estimated GFR (CKD EPI) and should not be used for calculating drug doses. 07/07/2021 10:3 8 AM CDT Lorie Chan MD LABORATORY Final Result [facility] [address] [place] [address], * (ABNORMAL) CBC W/DIFF AUTOMATED (07/07/2021 10:38 AM CDT) WBC 4.5 4.4 - 11.0 x10'3/uL 07/07/2021 10:56 AM CDT [facility] RBC 4.70 4.50 - 5.90 x10'6/uL 07/07/2021 10:56 AM CDT [facility] HGB 14.8 14.0 - 17.5 G/DL 07/07/2021 10:56 AM CDT [facility] HCT 44.4 41.5 - 50.4 % 07/07/2021 10:56 AM CDT [facility] MCV 94.5 80.0 - 96.0 FL 07/07/2021 10:56 AM CDT [facility] MCH 31.5(H) 26.5 - 31.4 PG 07/07/2021 10:56 AM CDT [facility] MCHC 33.3 31.9 - 34.8 G/DL 07/07/2021 10:56 AM CDT [facility] RDW 13.3 12.3 - 14.3 % 07/07/2021 10:56 AM CDT [facility] PLT 275 151 - 353 x10'3/uL 07/07/2021 10:56 AM CDT [facility] MPV 10.2 9.7 - 11.9 FL 07/07/2021 10:56 AM CDT [facility] RBC MORPHOLOGY NORMAL 07/07/2021 10:56 AM CDT [facility] PLT MORPH. NORMAL 07/07/2021 10:56 AM CDT [facility] WBC MORPHOLOGY NORMAL 07/07/2021 10:56 AM CDT [facility] LYMPHOCYTES % 37.0 15.8 - 45.0 % 07/07/2021 10:56 AM CDT [facility] NEUTROPHILS % 48.6 42.1 - 71.9 % 07/07/2021 10:56 AM CDT [facility] MONOCYTES % 11.5 5.7 - 12.5 % 07/07/2021 10:56 AM CDT [facility] EOSINOPHILS 1.8 0.0 - 5.6 % 07/07/2021 10:56 AM CDT [facility] BASOPHILS 0.9 0.0 - 1.3 % 07/07/2021 10:56 AM CDT [facility] ABS. NEUTROPHILS TOTAL 2.21 1.40 - 6.00 x10'3/uL 07/07/2021 10:56 AM CDT [facility] IMMATURE GRANS % 0.2 0.0 - 0.5 % 07/07/2021 10:56 AM CDT [facility] ABS. LYMPHOCYTES 1.68 0.80 - 4.70 x10'3/uL 07/07/2021 10:56 AM CDT [facility] 07/07/2021 10:3 8 AM CDT us Lorie Chan MD LABORATORY Final Result [facility] [address] [place] [address], [place] [phone] documented in this encounter Visit Diagnoses Diagnosis Mixed hyperlipidemia Prostate cancer screening Special screening for malignant neoplasm of prostate documented in this encounter Care Teams Cloth Brushing And Sueding Supervisor Relationship Specialty Start Date End Date Lorie Chan MD PCP - General INTERNAL MEDICINE 01/15/20 02/09/23 documented as of this encounter
--- OUTSIDE RECORDS SUMMARY | 2024-11-02 08:09 | XMS_ITS | Encounter Summary ---
Author Organization [facility] Address [address] [place] [address]. 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 No / Unsure 04/28/2021 10:45 AM CDT documented as of this encounter [...] Internal Medicine [facility] [address] [place] [address] [place] [address] [place] [address] 10/22/2025 9:15 AM PULLING MACHINE OPERATOR Office Visit [facility] [address] Mily Gan MD [address] [address] documented as of this encounter Goals Goal Patient Goal Type Associated Problems Recent Progress Patient-Stated? Author Establish Plan for Symptom Monitoring General Jesi Lagunas i, RN Monitor - demonstrates appropriate technique of care of indwelling urinary catheter and new ostomy General No Jesi Cochran RN documented as of this encounter Visit Diagnoses Not on filedocumented in this encounter Care Teams Grey Iron Molder Relationship Specialty Start Date End Date Lorie Chan MD PCP - General INTERNAL MEDICINE 01/15/20 02/09/23 documented as of this encounter
--- OUTSIDE RECORDS SUMMARY | 2024-11-02 08:09 | XMS_ITS | Encounter Summary ---
Author Organization [facility] Address [address] [place] [address]. [place] [address] [place] [address] Care Team Providers Care Wash And Greaser Name Role Phone Lorie Castanon MD Primary Care Provider [phone] Reason for Visit * Reason Comments Follow Up Patient is here for a 1 month follow up. He states that his clothes are fitting right on the bag, he usually wears his pants below or above the bag. Encounter Details Date Type Department Care Team (Late st Contact Info) Description 04/28/2021 11:00 AM CDT Office Visit [facility] Family & Internal Medicine [address] [address] Lorie Castanon MD [address] [place] [address] Follow Up (Patient is here for a 1 month follow up. He states that his clothes are fitting right on the bag, he usually wears his pants below or above the bag. 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 No / Unsure 04/28/2021 10:45 AM CDT documented as of this encounter Last Filed Vital Signs Vital Sign Reading Time Taken Comments Blood Pressure 114/62 04/28/2021 11:00 AM CDT Pulse 79 04/28/2021 11:00 AM CDT Temperature 36.2 ??C (97.1 ??F) 04/28/2021 11:00 AM C DT Respiratory Rate 20 04/28/2021 11:00 AM CDT Oxygen Saturation 98% 04/28/2021 11:00 AM CDT Inhaled Oxygen Concentration - - Weight 71.2 kg (157 lb) 04/28/2021 11:00 AM CDT Height 170.2 cm (5' 7 ) 04/28/2021 11:00 AM CDT Body Mass Index 24.59 04/28/2021 11:00 AM CDT documented in this encounter Functional [...] Progress Notes * Lorie Castanon MD - 04/28/2021 11:00 AM CDT Reason for Visit: Follow Up (Patient is here for a 1 month follow up. He states that his clothes are fitting right onthe bag, he usually wears his pants below or above the bag. ) HPI 65-year-old male who developed left lower quadrant pain went to the emergency room and was found tohave a perforation and was sent emergently to [facility] where he was taken immediately to surgery and a diverting colostomy placed. He was discharged on 03/23/2021 where he has been dealing with a colostomy bag he has had a couple blowouts and finds that the location is where his pants would rub so he is dealing with this but get somewhat getting used to it. He is looking forward to being able to have this reversed. First he was limited to 10 pounds now is up to 20 pounds and looking forward to being able to get back to a normal life He otherwise feels well he has no chest pain abdominal pain no open sores and has an appointment inSeptember with the general surgeon to assess him for a reversal in the next day as a routine follow-up with me with labs. Review of Systems Constitutional: Negative. HENT: Negative. Eyes: Negative. Respiratory: Negative. Cardiovascular: Negative. Gastrointestinal: Left lower quadrant ostomy after perforated colon see HPI Musculoskeletal: Negative. Skin: Negative. Neurological: Negative. Psychiatric/Behavioral: Negative. Current [...] theBlood), Disp: 90 tablet, Rfl: 1 ??? Casanthranol-Docusate Sodium (LAXATIVE-STOOL SOFTNER OR), , Disp: , Rfl: ??? Cholecalciferol (VITAMIN D) 50 MCG (2000 UT) Cap, Take 25 mcg by mouth daily. Indications: Vitamin D Deficiency, Disp: , Rfl: ??? simethicone (GAS-X EXTRA STRENGTH) 125 MG chewable tablet, Chew 125 mg by mouth every 6 (six) hours as needed. Indications: Gas Pain, Disp: , Rfl: ??? Vitamin E 400 units Tab, Take 400 Units by mouth daily. Indications: Nutritional Support, Disp:, Rfl: ??? zinc gluconate 50 MG Tab, Take 1 tablet by mouth daily. Indications: Nutritional Support, Disp:, Rfl: ? ? CPAP SUPPLIES, 1 Units [...] Supply, Disp: 20 tablet, Rfl: 0 Allergies Allergen Reactions ??? Morphine Itching Past Medical History: Diagnosis Date ??? Arthritis ??? Cervical stenosis of spine ??? Hyperlipidemia ??? Influenza vaccine administered ??? RANDY (obstructive sleep apnea) Past Surgical History: Procedure Laterality Date ??? COLON SURGERY 03/18/2021 colostomy r/t perferation ??? COLONOSCOPY N/A 2013 ??? COLOSTOMY reversable ??? HERNIA REPAIR Right [facility] ??? HERNIA REPAIR Left [facility] ??? NECK/CHEST PROCEDURE UNLISTED Right [facility], re-built right side of neck. ??? SMALL INTESTINE SURGERY bowel rupture ??? TOTAL KNEE ARTHROPLASTY Bilateral ZANA Partial KR, [place] [facility] [place] Social History Socioeconomic History ??? Marital status: [...] Not on file Social History Narrative ??? Not on file Social Determinants of Health Financial Resource Strain: [...] Gatherings with Friends and Family: ??? Attends Protestant Services: ??? Active Member of Clubs or [...] ??? Brother ??? Brother Alive Filed Vitals: 04/28/21 1100 BP: 114/62 Pulse: 79 Resp: 20 Temp: 97.1 ??F (36.2 ??C) TempSrc: Temporal SpO2: 98% Weight: 71.2 kg (157 lb) Height: 5' 7 (1.702 m) Body mass index is 24.59 kg/m??. Physical Exam Constitutional: He is oriented to person, place, and time. He appears well- developed and well-nourished. HENT: Head: Normocephalic. Eyes: Pupils are equal, round, and reactive to light. Conjunctivae are normal. Cardiovascular: Normal rate, regular rhythm and normal heart sounds. Pulmonary/Chest: Effort normal and breath sounds normal. Abdominal: Soft. Bowel sounds are normal. Left lower quadrant colostomy intact Musculoskeletal: General: Normal range of motion. Cervical back: Neck supple. Neurological: He is alert and oriented to person, place, and time. No cranial nerve deficit. Skin: Skin is dry. Psychiatric: He has a normal mood and affect. Judgment normal. Assessment/PLAN 1. Status post Neel procedure ([facility]) 2. Bowel perforation ([facility]) 3. 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 BMI 24.0-24.9, adult Hospital follow-up after diverticulitis and colon perforation status post diverting ostomy placement. He has a follow-up appointment scheduled with the general surgeon in July and will undergo colonoscopy prior to reversal. Has an appointment with me with labs in July for routine care otherwise follow-up if worse notbetter as needed Follow up FU PRN LORIE CASTANON MD 04/28/2021 12:57 PM documented in this encounter Plan of Treatment Upcoming Encounters Date Type Department Care Team (Late st Contact Info) Description 01/27/2025 7:00 AM CDT Office Visit [facility] Family & Internal Medicine [facility] [address] [place] [phone] [place] [id number] [place] [address] 10/22/2025 9:15 AM MEDICAL SERVICES ASSISTANT Office Visit [facility] [address] [place] [address] Mily Gan MD [facility] [address] [place] [address] documented as of this encounter Goals Goal Patient Goal Type Associated Problems Recent Progress Patient-Stated? Author Establish Plan for Symptom Monitoring General Jesi Lagunas i RN Monitor - demonstrates appropriate technique of care of indwelling urinary catheter and new ostomy General Jesi Ye RN documented as of this encounter Visit Diagnoses Diagnosis Status post Neel procedure ([facility] HHS/HCC)- Primary Bowel perforation (CMS/HCC HHS/HCC) Perforation of intestine Colostomy in place (CMS/HCC HHS/HCC) Colostomy status BMI 24.0-24.9, adult documented in this encounter Care Teams Wash And Greaser Relationship Specialty Start Date End Date Lorie Castanon MD PCP - General INTERNAL MEDICINE 01/15/20 02/09/23 documented as of this encounter
--- OUTSIDE RECORDS SUMMARY | 2024-11-02 08:09 | XMS_ITS | Encounter Summary ---
Author Organization [facility] Address [address] [place] [address]. 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 Author Establish Plan for Symptom Monitoring General No Jesi Mixon i, RN Monitor - demonstrates appropriate technique of care of indwelling urinary catheter and new ostomy General No Jesi Cochran RN documented as of this encounter Visit Diagnoses Not on filedocumented in this encounter Care Teams Supervisor Customer Complaint Service Relationship Specialty Start Date End Date Lorie Chan MD PCP - General INTERNAL MEDICINE 01/15/20 02/09/23 documented as of this encounter
--- OUTSIDE RECORDS SUMMARY | 2024-11-02 08:09 | XMS_ITS | Encounter Summary ---
Author Organization [facility] Address [address] [place] [address]. [place] [address] [place] [address] Care Team Providers Care Pipe Bender Name Role Phone Lorie Castanon MD Primary Care Provider [phone] Reason for Visit * Reason Comments Follow Up States having some i ssues with his stoma. also alot of flatus. Encounter Details Date Type Department Care Team (Late st Contact Info) Description 06/01/2021 1:40 PM CDT Office Visit [facility] General Surgery - [place] [address] [facility], [address] [place] [address] Federico Amador MD [address] [facility] [address] [place] [address] Follow Up (States having some issues with his stoma. 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 No / Unsure 06/01/2021 1:22 PM CDT documented as of this encounter Last Filed Vital Signs Vital Sign Reading Time Taken Comments Blood Pressure 131/71 06/01/2021 1:51 PM CDT Pulse 80 06/01/2021 1:51 PM CDT Temperature 36.7 ??C (98.1 ??F) 06/01/2021 1:51 PM CD T Respiratory Rate 20 06/01/2021 1:51 PM CDT Oxygen Saturation 97% 06/01/2021 1:51 PM CDT Inhaled Oxygen Concentration - - Weight 72.7 kg (160 lb 3.2 oz) 06/01/2021 1:51 P M CDT Height 170.2 cm (5' 7 ) 06/01/2021 1:51 PM CDT Body Mass Index 25.09 06/01/2021 1:51 PM CDT documented in this encounter Functional [...] Progress Notes * Federico Amador MD - 06/01/2021 1:40 PM CDT Reason for Visit: Follow Up (States having some issues with his stoma. also alot of flatus.) History of Present Illness: Natan Patel is a 65-year-old male status post Hudson's procedure for perforated diverticulitis. He states that he has some leakage at the corner of his ostomy. He denies any other pertinent issues or concerns. ROS: [...] ??? COLOSTOMY reversable ??? HERNIA REPAIR Right [facility] ??? HERNIA REPAIR Left [facility] ??? NECK/CHEST PROCEDURE UNLISTED Right [facility], re-built right side of neck. ??? SMALL INTESTINE SURGERY bowel rupture ??? TOTAL KNEE ARTHROPLASTY Bilateral ZANA Partial KR, done @ [facility] Social History Tobacco Use ??? [...] is present. Comments: Abdomen is soft, nondistended, nontender, positive bowel sounds, stoma pink and viable with gas and stool. Musculoskeletal: General: No tenderness or deformity. Normal range of motion. Cervical back: Normal range of motion and neck supple. Right lower leg: No edema. Left lower leg: No edema. Skin: General: Skin is warm and dry. Findings: No rash. Neurological: Mental Status: He is alert and oriented to person, place, and time. Psychiatric: Mood and Affect: Mood normal. Behavior: Behavior normal. Vitals: 06/01/21 1351 Patient Position: Sitting BP Location: Left arm Cuff size: Adult Regular BP: 131/71 Pulse: 80 Body mass index is 25.09 kg/m??. Diagnoses/Impression: 1. Status post Neel procedure ([facility]) Recommendations and Plan: Natan Patel is a 65-year-old male with colostomy in place. I did advise him to use the stoma paste and use the stoma powder for the mild excoriation. He has also been advised to cut his bag a little differently to accommodate the stoma. He verbalized understanding. Follow-up in 2 months as previously scheduled to schedule a colonoscopy and a reversal. Federico Amador MD Referring Provider: Dustin PCP: LORIE CASTANON MD documented in this encounter Plan of Treatment Upcoming Encounters Date Type Department Care Team (Late st Contact Info) Description 01/27/2025 7:00 AM CDT Office Visit [facility] Family & Internal Medicine - [place] [address] [place] [address] [place] [address] [place], [place] [id number] 10/22/2025 9:15 AM CHIEF NURSING EXECUTIVE Office Visit [facility] [address] Mily Gan MD [id number] [place] [address] documented as of this encounter Goals Goal Patient Goal Type Associated Problems Recent Progress Patient-Stated? Author Establish Plan for Symptom Monitoring General No Jesi Mixon i RN Monitor - demonstrates appropriate technique of care of indwelling urinary catheter and new ostomy General Jesi Ye RN documented as of this encounter Visit Diagnoses Diagnosis Status post Neel procedure ([facility])- Primary documented in this encounter Care Teams Pipe Bender Relationship Specialty Start Date End Date Lorie Castanon MD PCP - General INTERNAL MEDICINE 01/15/20 02/09/23 documented as of this encounter
--- OUTSIDE RECORDS SUMMARY | 2024-11-02 08:10 | XMS_ITS | Encounter Summary ---
Author Organization [facility] Address [address] [place] [address]. [place], [place] [id number] [place] [id number] Care Team Providers Care Ambulance Mechanic Name Role Phone Lorie Chan MD Primary Care Provider [phone] Reason for Visit * Auth/Cert Specialty Diagnoses / Procedures Referred By Shelby jama Referred To Contact [facility] [address] [facility] [address] [place] [address] Phone: tel: fax: Referral ID Status Reason Start Date Expiration Date Visits Re quested Visits Authorized [id number] 1 1 Encounter Details Date Type Department Care Team (Late st Contact Info) Description 04/06/2021 9:00 AM CDT [facility] [address] 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 No / Unsure 04/02/2021 1:29 PM CDT documented as of this encounter Last Filed Vital Signs Vital Sign Reading Time Taken Comments Blood Pressure 122/64 04/06/2021 9:22 AM CDT Pulse 70 04/06/2021 9:22 AM CDT Temperature 35.8 ??C (96.5 ??F) 04/06/2021 9:22 AM CD T Respiratory Rate 18 04/06/2021 9:22 AM CDT Oxygen Saturation 98% 04/06/2021 9:22 AM CDT Inhaled Oxygen Concentration - - Weight 68.5 kg (151 lb) 04/06/2021 9:22 AM CDT Height - - Body Mass Index 23.65 04/02/2021 1:57 PM CDT documented in this encounter Functional [...] Description 01/27/2025 7:00 AM CDT [facility] Family [facility] Internal Medicine - [place] [address] [place] [address] [place] [address] [place], [place] [id number] 10/22/2025 9:15 AM CULINARY INSTRUCTOR Office Visit [facility] [address] Mily Gan MD [address] [place], [place] [id number] documented as of this encounter Goals Goal [...] Visit Type -SN - Home Visit Discipline -Snf Problems Problem Description Start Date Status Goals Interve ntions Fall Precautions Disciplines: Snf Patient at risk for falls 03/24/2021 Active 1 goal linked to scheduled/document ed intervention 3 goal interventions scheduled/document ed in this visit Collaboratio n of Care Disciplines: Snf Collaboration for safe care. 03/24/2021 Active 2 goals linked to scheduled/document ed interventions 2 problem interventions scheduled/document ed in this visit 5 goal interventions scheduled/document ed in this visit Ostomy Disciplines: Snf Care related to Colostomy related to diagnosis of Perforated diverticulum. 03/24/2021 Active 1 goal linked to scheduled/document ed intervention 1 problem intervention scheduled/document ed in this visit 4 goal interventions scheduled/document ed in this visit Wound Management Disciplines: Snf Skin integrity deficit related to: surgical wound wound. Location/site: Abdomen 03/24/2021 Active 1 goal linked to scheduled/document ed intervention 8 goal interventions scheduled/document ed in this visit Urinary Catheter Disciplines: Snf Urinary catheter 03/24/2021 Resolved on 04/06/2021 1 goal linked to scheduled/document ed intervention 2 goal interventions scheduled/document ed in this visit Risk for Skin Breakdown Disciplines: Snf Risk for skin breakdown 03/24/2021 Active 1 goal linked to scheduled/document ed intervention 1 goal intervention scheduled/document ed in this visit Depression Disciplines: Snf Depression 03/24/2021 Active 1 goal linked to scheduled/document ed intervention 1 goal intervention scheduled/document ed in this visit Medications Disciplines: Snf Management of home medications. 03/24/2021 Active 1 goal linked to scheduled/document ed intervention 2 goal interventions scheduled/document ed in this visit Goals Goal Associated Problem Outcome Goal Met? Visit Notes Patient/caregiver maintains a safe environment. Description: Patient/caregiver will demonstrate ability to maintain a safe environment without injuries/falls by May 22, 2021. Fall Precautions Progressing No Patient meets homebound requirements. Description: Patient meets requirements of homebound status as evidenced by gait limited to household distances, limited endurance, unable to leave home safely without assistance, and pain/weakness due to major surgery. Collaboration of Care Progressing No Patient safety met through collaboration for safe care. Description: Clinicians will communicate patient care and safety needs during episode of care through May 22, 2021. Collaboration of Care Progressing No Patient GI/ care needs met without signs/symptoms of complications Description: - Patient and Caregiver will demonstrate ability to perform appliance change, care for peristomal skin, and identify signs of potential skin breakdown within 30 days. - Patient and Caregiver will verbalize knowledge of dietary recommendations and fluid balance in relation to ostomy within 30 days. - Discharge plan from ostomy care will be complete within 60 days. Ostomy Progressing No Patient integumentary care needs met without signs/symptoms of complications Description: - Wound will heal without complications by May 22, 2021. - Patient will demonstrate wound care procedure, report complications, verbalize pressure relief interventions and verbalize diet to promote wound healing by May 22, 2021. - Control of drainage and prevention with early detection of infection for non-healing wounds by May 22, 2021. - Incision healed without signs of infection by May 22, 2021. Wound Management Progressing No Patient's catheter remains patent without signs/symptoms of infection Description: - Patient's catheter will remain patent without signs/symptoms of infection through May 22, 2021. Urinary Catheter Completed Yes Patient verbalizes understanding of infection prevention strategies and methods to prevent development or worsening of pressure injuries Description: Patient will verbalize understanding of infection prevention strategies and methods to prevent development or worsening of pressure injuries by May 22, 2021. Risk for Skin Breakdown Progressing No Ability to Manage Depression Description: The Patient will verbalize and demonstrate ability to manage the patient's depression through May 22, 2021. Depression Progressing No Patient verbalizes understanding of medication regimen Description: Patient and Caregiver will verbalize understanding of medication regimen by May 22, 2021. Medications No Interventions Intervention Associated Problem/Goal Status Variance Visit Notes Instruct on Fall Prevention Description: Educate Patient about fall prevention. Problem:Fall Precautions Goal:Patient/caregive r maintains a safe environment. Completed Patient instructed on fall prevention, patient verbalizes understanding. Report Falls to Provider within 24 Hours Description: Report witnessed or reported falls to provider within 24 hours. Problem:Fall Precautions Goal:Patient/caregive r maintains a safe environment. Completed Teach Patient/Caregiver to Report Falls Description: Teach Patient and to report any fall occurrences to Homecare Agency. Problem:Fall Precautions Goal:Patient/caregive r maintains a safe environment. Completed Assess Vital Signs Description: Obtain and record vital signs.Patient vitals will be stable throughout care. Notify MD if vital signs are not within parameters: Vital Signs -report if: BP: systolic blood pressure <90 or >160; diastolic blood pressure <60 or >90. Temperature: >100.5 F. Pulse: <60 or >100 bpm. Respiratory Rate: <12 or >28 /min. SPO2: <90% Problem:Collaboration of Care Goal:Patient safety met through collaboration for safe care. Completed Vital Signs -report to provider if: BP:?? systolic blood pressure <90 or >160; diastolic blood pressure <60 or >90. Pulse: <60 or >100 bpm. Respiratory Rate:?? <12 or >28 /min. Temperature:?? >100.5 F. SPO2: <90%.? Insurance Verification Description: Verify with patient/caregiver current insurance coverage. Problem:Collaboration of Care Goal:Patient safety met through collaboration for safe care. Completed Plan Towards Discharge Description: Document Patient progress towards discharge. Problem:Collaboration of Care Goal:Patient safety met through collaboration for safe care. Completed Care Coordination Description: Skilled nurse to review care plan with patient. Patient agrees to plan of care and agrees to participate in care. Problem:Collaboration of Care Goal:Patient safety met through collaboration for safe care. Completed Plan for Next Visit Description: Next visit plan summation Problem:Collaboration of Care Goal:Patient safety met through collaboration for safe care. Completed Skilled nurse reviewed next skilled nurse visit for for ongoing Ostomy care management with skilled nurse and ISH Vázquez, patient agreeable and verbalized understanding. Instruct Description: Patient up as tolerated. Skilled nurse to instruct patient on fall prevention. Problem:Collaboration of Care Completed Instruct Description: Skilled nurse to instruct patient on low fiber diet as tolerated. Problem:Collaboration of Care Completed Instruct coping Description: - Assess Patient and learning and coping abilities, developmental level, support system, willingness to learn, barriers to communication, and willingness to participate in the prescribed treatment regimen. - Instruct Patient and on effective coping and problem-solving skills. - Instruct patient to avoid know/identified stressors or events that prevent use of constructive coping mechanisms/behaviors. Problem:Ostomy Goal:Patient GI/ care needs met without signs/symptoms of complications Completed Physical Discomfort Description: Instruct Patient on pharmacologic and nonpharmacologic pain management techniques. Problem:Ostomy Goal:Patient GI/ care needs met without signs/symptoms of complications Completed Instruct Ostomy Maintenance Description: - Instruct Patient and in appliance change, cleaning, and peristomal skin inspection. - Instruct Patient and in methods of odor control, strategies to prevent infection. - Instruct Patient and in strategies to prevent infection: frequent/proper hand-washing techniques, [place] precautions, Standard precautions, avoid crowds and persons with known infections, staying current with immunizations, wound care, s/s of infection, use of incentive spirometer, use of antibiotics and encourage adequate diet and fluid intake, how to recognize signs and symptoms of infection, and when to notify home care agency and/or physician. - Instruct on Low Fiber diet and any fluid restrictions/requirement s, impact of food on stoma output, and importance of adequate hydration. Instruct on potential for fluid imbalance and symptoms of dehydration. Problem:Ostomy Goal:Patient GI/ care needs met without signs/symptoms of complications Completed Assess Ostomy Description: - Assess effluent description, patency, appliance wear time, patient satisfaction/ability to perform care. - Assess psychosocial barriers, pain, infection, peristomal skin, bud perfusion, odor. Problem:Ostomy Goal:Patient GI/ care needs met without signs/symptoms of complications Completed Ostomy care Description: Skilled nurse to instruct patient and using clean technique, perform ostomy care using appliances. Remove old appliance, cleanse area with water, pat dry, apply skin barrier, apply appliance. Assess stoma integrity. Assess peristomal area for signs/symptoms of impaired skin integrity and instruct patient and caregiver on the signs/symptoms of infection. Problem:Ostomy Completed Wound Measurement Description: Wound measured weekly by HH Agency (see wound assessment form). Problem:Wound Management Goal:Patient integumentary care needs met without signs/symptoms of complications Completed Instruct on drain care Description: Instruct Patient and in JITENDRA drain care. Patient and/or using aseptic technique to drain JITENDRA drain daily and as needed. Instruct patient and to keep a daily log with drainage amount. Using clean technique change dressing to JITENDRA drain two times a week and as needed for soiled or loosened dressing. Apply new drain sponge, cover with 4x4 gauze and secure with medipore tape. Problem:Wound Management Goal:Patient integumentary care needs met without signs/symptoms of complications Completed Patient no longer has a JITENDRA drain as it was removed last week Monday at follow up appointment with Dr. Amador. Small scab intact, no signs/symptoms of infection, no drainage or opened areas noted. Instruct infection prevention Description: Instruct Patient and in signs/symptoms of wound infection. Problem:Wound Management Goal:Patient integumentary care needs met without signs/symptoms of complications Completed Skilled nurse instructed patient on signs/symptoms of infection and when to notify home health and/or MD, patient verbalized understanding. Evaluate effectiveness Description: Assess patient's current nutritional status, factors that affect patient's ability to purchase and prepare meals, food preferences, current eating practices, and current knowledge of intake requirements. Problem:Wound Management Goal:Patient integumentary care needs met without signs/symptoms of complications Completed Skilled assessment knowledge deficit Description: Evaluate the effectiveness of the current treatment regimen and notify physician for the need for changes in the plan of care. Problem:Wound Management Goal:Patient integumentary care needs met without signs/symptoms of complications Completed Wound - Custom Protocol Description: Skilled nurse, patient and/or using aseptic technique to perform wound care to surgical incision on abdomen two times a week and as needed for soiled or loosened dressing. Remove old dressing, paint incision with povidone iodine swab, allow to dry, apply non-adherent gauze, apply ABD dressing, secure with medipore tape. Problem:Wound Management Goal:Patient integumentary care needs met without signs/symptoms of complications Completed Skin Integrity Description: Instruct patient and caregiver in disease process, pain management, signs/symptoms of infection, nutrition to promote wound healing, and wound care/dressing. Problem:Wound Management Goal:Patient integumentary care needs met without signs/symptoms of complications Completed Assess Skin Integrity Description: Skilled observation and assessment of wound. Problem:Wound Management Goal:Patient integumentary care needs met without signs/symptoms of complications Completed Instruct Catheter Cares Description: - Skilled nurse not to remove/change mullins catheter, skilled nurse and/or patient to contact Dr. Federico Amador if any mullins catheter concerns. - Instruct Patient on when to contact physician, Dr. Federico Amador at [phone]. - Instruct Patient and on home management of urinary catheter including cleaning urinary meatus, signs/symptoms of infection, changing from night bag to leg bag. Problem:Urinary Catheter Goal:Patient's catheter remains patent without signs/symptoms of infection Completed Infection Prevention Description: Instruct Patient and in strategies to prevent urinary tract infection and how to recognize signs and symptoms of infection and when to notify home care agency, and/or physician. Problem:Urinary Catheter Goal:Patient's catheter remains patent without signs/symptoms of infection Completed Patient no longer has a catheter as it was removed Monday from surgeon. Patient denies any pain, burning, discomfort or bleeding with urination. Prevention of Pressure Injuries Description: - Instruct Patient in the causes and prevention of pressure injuries including positioning strategies and using pressure relieving devices/strategies. - Instruct in dietary/nutritional needs to optimize skin health and healing. Problem:Risk for Skin Breakdown Goal:Patient verbalizes understanding of infection prevention strategies and methods to prevent development or worsening of pressure injuries Completed Assess depression Description: Assess patient for signs and symptoms of depression and Patient ability to cope with any mild, moderate, or severe signs of depression. Problem:Depression Goal:Ability to Manage Depression Completed Instruct Medications Description: Instruct Patient in medication administration, purpose, dosages, preparation, scheduling, side effects, food/drug interactions, storage, and potential complications. Problem:Medications Goal:Patient verbalizes understanding of medication regimen Scheduled Instruct High-Risk Meds Description: Instruct Patient on high-risk medications including oral hypoglycemics, insulins, blood thinners, and narcotics. Problem:Medications Goal:Patient verbalizes understanding of medication regimen Scheduled documented in this encounter Care Teams Ambulance Mechanic Relationship Specialty Start Date End Date Lorie Chan MD PCP - General INTERNAL MEDICINE 01/15/20 02/09/23 documented as of this encounter
--- OUTSIDE RECORDS SUMMARY | 2024-11-02 08:10 | XMS_ITS | Encounter Summary ---
Author Organization [facility] Address [address] [place] [address]. [place] [address] [place] [address] Care Team Providers Care Advertising Assistant Manager Name Role Phone Lorie Castanon MD Primary Care Provider [phone] Reason for Visit * Reason Comments Postop Followup colon resection(03/06 01/24) * Surgical (Routine) - Closed Specialty Diagnoses / Procedures Referred By Shelby jama Referred To Contact Diagnoses Pharyngoesophageal dysphagia Procedures Case request operating room: Cody Lackey MD [address] [place] [address] Phone: tel: fax: Referral ID Status Reason Start Date Expiration Date Visits Re quested Visits Authorized [id number] Closed 02/25/2021 03/27/2022 1 1 Encounter Details Date Type Department Care Team (Late st Contact Info) Description 04/02/2021 1:40 PM CDT Office Visit [facility] General Surgery [address], [address] [place] [address] Federico Amador MD [address] [address] Postop Followup (colon resection(03/18/21)) Social History Tobacco Use Types Packs/Day Years [...] on file 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 No / Unsure 04/02/2021 1:29 PM CDT documented as of this encounter Last Filed Vital Signs Vital Sign Reading Time Taken Comments Blood Pressure 120/62 04/02/2021 1:57 PM CDT Pulse 67 04/02/2021 1:57 PM CDT Temperature 36.3 ??C (97.3 ??F) 04/02/2021 1:57 PM CD T Respiratory Rate 16 04/02/2021 1:57 PM CDT Oxygen Saturation 99% 04/02/2021 1:57 PM CDT Inhaled Oxygen Concentration - - Weight 69.4 kg (153 lb) 04/02/2021 1:57 PM CDT Height 170.2 cm (5' 7 ) 04/02/2021 1:57 PM CDT Body Mass Index 23.96 04/02/2021 1:57 PM CDT documented in this [...] Clemons RN Active documented in this encounter Progress Notes * Federico Amador MD - 04/02/2021 1:40 PM CDT Reason for Visit: Postop Followup (colon resection(03/18/21)) History of Present Illness: Natan Patel is a 65-year-old male status post emergency sigmoidectomy with colostomy (Hudson's procedure) for perforated sigmoid diverticulitis on March 18, 2021. He does have a Easton-Srinivasan drain which has not put out much. He does have a Osborne catheter in place and had a cystogram performed on April 01, 2021 and there was no evidence of extravasation. He is eating well and denies any abdominal pain, nausea, vomiting, fevers or chills or any issues with his colostomy. He is having stool andair in his colostomy. Pathology was consistent with perforated diverticulitis with acute serositis and abscess, viable resection margins with serositis, no dysplasia or malignancy. Pathology reviewed with patient. ROS: Review of Systems Constitutional: Negative. HENT: [...] RANDY), Disp: 1 Device, Rfl: 3 ??? senna-docusate 8.6-50 MG tablet, Take 1 tablet by mouth daily as needed for Constipation., Disp: 10 tablet, Rfl: 0 ??? Vitamin E 400 units Tab, Take [...] ??? COLOSTOMY reversable ??? HERNIA REPAIR Right [facility] ??? HERNIA REPAIR Left [facility] ??? NECK/CHEST PROCEDURE UNLISTED Right [facility], re-built right side of neck. ??? SMALL INTESTINE SURGERY bowel rupture ??? TOTAL KNEE ARTHROPLASTY Bilateral ZANA Partial KR, done @ [facility] Social History Tobacco Use ??? [...] rebound. Hernia: No hernia is present. Comments: Ostomy is functioning with output. Slater removed without incident. Osborne catheter removed without incident and Easton-Srinivasan drain removed without incident. Musculoskeletal: General: No tenderness or deformity. Normal range of motion. Cervical back: Normal range of motion and neck supple. Skin: General: Skin is warm and dry. Findings: No rash. Neurological: Mental Status: He is alert and oriented to person, place, and time. Psychiatric: Mood and Affect: Mood normal. Behavior: Behavior normal. Vitals: 04/02/21 1357 Patient Position: Sitting BP Location: Left arm Cuff size: Adult Small BP: 120/62 Pulse: 67 Body mass index is 23.96 kg/m??. Diagnoses/Impression: 1. Status post Neel procedure ([facility]) Recommendations and Plan: Natan Patel is a 65-year-old male status post Hudson's procedure for perforated acute sigmoiddiverticulitis. Osborne catheter was removed and patient was advised to drink some water and return to the office after he has voided. He did return to the office within an hour and stated that he voided adequately twice after removal of Osborne catheter. Easton-Srinivasan drain was then removed after he adequately voided and there was no increase in Easton-Srinivasan drainage. Follow-up in 4 weeks, sooner should the need arise. 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 Author Establish Plan for Symptom Monitoring General Jesi Lagunas i, RN Monitor - demonstrates appropriate technique of care of indwelling urinary catheter and new ostomy General Jesi Ye RN documented as of this encounter Visit Diagnoses Diagnosis Status post Neel procedure ([facility])- Primary documented in this encounter Care Teams Advertising Assistant Manager Relationship Specialty Start Date End Date Lorie Castanon MD PCP - General INTERNAL MEDICINE 01/15/20 02/09/23 documented as of this encounter
--- OUTSIDE RECORDS SUMMARY | 2024-11-02 08:10 | XMS_ITS | Encounter Summary ---
Author Organization [facility] Address [address] [place] [address]. [place], [place] [address] [place] [address] Care Team Providers Care High [employer] Library Media Specialist Name Role Phone Lorie Chan MD Primary Care Provider [phone] Reason for Visit * Auth/Cert Specialty Diagnoses / Procedures Referred By Shelby jama Referred To Contact Home Health Services / [facility] Home Care [facility] [address] 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 Author Establish Plan for Symptom Monitoring General Jesi Lagunas i, RN Monitor - demonstrates appropriate technique of care of indwelling urinary catheter and new ostomy General Jesi Ye, RN documented as of this encounter Visit Diagnoses Not on filedocumented in this encounter Care Teams High [employer] Library Media Specialist Relationship Specialty Start Date End Date Lorie Chan MD PCP - General INTERNAL MEDICINE 01/15/20 02/09/23 documented as of this encounter
--- OUTSIDE RECORDS SUMMARY | 2024-11-02 08:10 | XMS_ITS | Encounter Summary ---
Author Organization [facility] Address [address] [place] [address]. [place], [place] [address] [place] [address] Care Team Providers Care Oven Tender Name Role Phone Lorie Chan MD Primary Care Provider [phone] Reason for Visit * Auth/Cert Specialty Diagnoses / Procedures Referred By Shelby jama Referred To Contact Home Health Services / [facility] Home Care [facility] [address] [facility] [address] [place] [address] Phone: tel: fax: Referral ID Status Reason Start Date Expiration Date Visits Re quested Visits Authorized [id number] 1 1 Encounter Details Date Type Department Care Team (Late st Contact Info) Description 04/08/2021 9:30 AM CDT Home Care Visit [facility] Home Care [facility] [address] [facility] [address] [place] [phone] Libby Syed, RN [phone] (Work) SN HOME VISIT Social History Tobacco [...] file Legal 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 No / Unsure 04/02/2021 1:29 PM CDT documented as of this encounter Last Filed Vital Signs Vital Sign Reading Time Taken Comments Blood Pressure 118/64 04/08/2021 10:08 AM CDT Pulse 62 04/08/2021 10:08 AM CDT Temperature 36.6 ??C (97.8 ??F) 04/08/2021 10:08 AM C DT Respiratory Rate 18 04/08/2021 10:08 AM CDT Oxygen Saturation 97% 04/08/2021 10:08 AM CDT room air Inhaled Oxygen Concentration - - Weight 68.9 kg (152 lb) 04/08/2021 10:08 AM CDT Height - - Body Mass Index 23.81 04/02/2021 1:57 PM CDT documented in this [...] Medical Group Family & Internal Medicine - [place] [address] [place] [address] [place] [address] [place], [place] [phone] 10/22/2025 9:15 AM KILN PUSHER Office Visit [facility] [address] Mily Gan MD [place] [id number] [place], [place] [phone] documented as of this encounter Goals Goal [...] Status Goals Interve ntions Fall Precautions Disciplines: Residential Patient at risk for falls 03/24/2021 Active 1 goal linked to scheduled/document ed intervention 3 goal interventions scheduled/document ed in this visit Collaboration of Care Disciplines: Residential Collaboration for safe care. 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 03/24/2021 Active 1 goal linked to scheduled/document ed intervention 1 problem intervention scheduled/document ed in this visit 4 goal interventions scheduled/document ed in this visit Wound Management Disciplines: Residential Skin integrity deficit related to: surgical wound wound. Location/site: Abdomen 03/24/2021 Active 1 goal linked to scheduled/document ed intervention 6 goal interventions scheduled/document ed in this visit Risk for Skin Breakdown Disciplines: Residential Risk for skin breakdown 03/24/2021 Active 1 goal linked to scheduled/document ed intervention 1 goal intervention scheduled/document ed in this visit Depression Disciplines: Residential Depression 03/24/2021 Active 1 goal linked to scheduled/document ed intervention 1 goal intervention scheduled/document ed in this visit Medications Disciplines: Residential Management of home medications. 03/24/2021 Active 1 [...] May 22, 2021. Wound Management Progressing No Patient verbalizes understanding of infection prevention strategies [...] medication regimen by May 22, 2021. Medications Progressing No Interventions Intervention Associated Problem/Goal Status Variance Visit Notes Instruct on Fall Prevention Description: Educate Patient about fall prevention. Problem:Fall Precautions Goal:Patient/caregiv er maintains a safe environment. Completed Patient instructed on fall prevention, patient verbalizes understanding. Report Falls to Provider within 24 Hours Description: Report witnessed or reported falls to provider within 24 hours. Problem:Fall Precautions Goal:Patient/caregiv er maintains a safe environment. Completed Teach Patient/Caregiver to Report Falls Description: Teach Patient and to report any fall occurrences to Homecare Agency. Problem:Fall Precautions Goal:Patient/caregiv er maintains a safe environment. Completed Assess Vital Signs Description: Obtain and record vital signs.Patient vitals will be stable throughout care. Notify MD if vital signs are not within parameters: Vital Signs -report if: BP: systolic blood pressure <90 or >160; diastolic blood pressure <60 or >90. Temperature: >100.5 F. Pulse: <60 or >100 bpm. Respiratory Rate: <12 or >28 /min. SPO2: <90% Problem:Collaboratio n of Care Goal:Patient safety met through collaboration for safe care. Completed Vital Signs -report to provider if: BP:?? systolic blood pressure <90 or >160; diastolic blood pressure <60 or >90. Pulse: <60 or >100 bpm. Respiratory Rate:?? <12 or >28 /min. Temperature:?? >100.5 F. SPO2: <90%.? Insurance Verification Description: Verify with patient/caregiver current insurance coverage. Problem:Collaboratio n of Care Goal:Patient safety met through collaboration for safe care. Completed Plan Towards Discharge Description: Document Patient progress towards discharge. Problem:Collaboratio n of Care Goal:Patient safety met through collaboration for safe care. Completed Care Coordination Description: Skilled nurse to review care plan with patient. Patient agrees to plan of care and agrees to participate in care. Problem:Collaboratio n of Care Goal:Patient safety met through collaboration for safe care. Completed Plan for Next Visit Description: Next visit plan summation Problem:Collaboratio n of Care Goal:Patient safety met through collaboration for safe care. Completed Instruct Description: Patient up as tolerated. Skilled nurse to instruct patient on fall prevention. Problem:Collaboratio n of Care Completed Instruct Description: Skilled nurse to instruct patient on low fiber diet as tolerated. Problem:Collaboratio n of Care Completed Instruct coping Description: - [...] strategies to prevent infection: frequent/proper hand-washing techniques, [place] precautions, Standard precautions, avoid crowds and persons with known infections, staying current with immunizations, wound care, s/s of infection, use of incentive spirometer, use of antibiotics and encourage adequate diet and fluid intake, how to recognize signs and symptoms of infection, and when to notify home care agency and/or physician. - Instruct on Low Fiber diet and any fluid restrictions/requiremen ts, impact of food on stoma output, and [...] needs met without signs/symptoms of complications Completed Prevention of Pressure Injuries Description: - Instruct [...] depression. Problem:Depression Goal:Ability to Manage Depression Completed Medication Management Description: - Review and identify unnecessary therapeutic duplication. Each clinician to perform bottle check weekly on their first visit of the week. (current) - Assess Patient ability to manage medications. Provide detailed instruction on proper administration and medication management. - Patient to take medications from pill bottles set up by Patient - Instruct Patient in medication administration, purpose, dosages, preparation, scheduling, side effects, food/drug interactions, storage, and potential complications. Problem:Medications Goal:Patient verbalizes understanding of medication regimen Completed Home medication management instructed, reviewed with patient. Patient verbalizes understanding. Instruct Medications Description: Instruct Patient in medication administration, purpose, dosages, preparation, scheduling, side effects, food/drug interactions, storage, and potential complications. Problem:Medications Goal:Patient verbalizes understanding of medication regimen Completed Patient instructed on medication administration, purpose, dosages, preparation, scheduling, side effects, food/drug interactions, and potential complications. Current regimen and compliance reviewed with Patient. Patient verbalizes understanding of anticoagulation therapy purpose, possible side effects and complications, and bleeding precautions, treatment regimen and the importance of adherence and when to contact the physician, HH, and/or EMS. Instruct High-Risk Meds Description: Instruct Patient on high-risk medications including oral hypoglycemics, insulins, blood thinners, and narcotics. Problem:Medications Goal:Patient verbalizes understanding of medication regimen Completed documented in this encounter Care Teams Oven Tender Relationship Specialty Start Date End Date Lorie Chan MD PCP - General INTERNAL MEDICINE 01/15/20 02/09/23 documented as of this encounter
--- OUTSIDE RECORDS SUMMARY | 2024-11-02 08:10 | XMS_ITS | Encounter Summary ---
Author Organization [facility] Address [address] [place] [address]. [place], [place] [address] [place] [address] Care Team Providers Care Passenger Brakeman Name Role Phone Lorie Chan MD Primary Care Provider [phone] Moraima Toledo RN Unavailable [phone] Reason for Visit * Auth/Cert Specialty Diagnoses / Procedures Referred By Shelby t Referred To Contact Home Health Services / [facility] HOME HEALTH [facility] Home Care [facility] [address] [facility] [address] [place] [address] Phone: tel: fax: Referral ID Status Reason Start Date Expiration Date Visits Re quested Visits Authorized [id number] 1 1 Encounter Details Date Type Department Care Team (Latest Contact Info) Description 03/30/2021 10:00 AM CDT Home Care Visit [facility] Home Care [facility] [address] [facility] [address] [place] [phone] Kathie Casey WOC RN /[facility] ORIENTATION VISIT Social History Tobacco [...] on file Legal 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 No / Unsure 03/29/2021 9:55 AM CDT documented as of this encounter [...] SERVICES Medical Group Family & Internal Medicine - [place] [address] [place] [address] [place] [address] [place], [place] [phone] 10/22/2025 9:15 AM TUBULAR SPLITTING MACHINE TENDER Office Visit [facility] [address] Mily Gan MD [facility] [address] [place] [address] documented as of this encounter Goals Goal Patient Goal Type Associated Problems Recent Progress Patient-Stated? Author Establish Plan for Symptom Monitoring General No Jesi Mixon i, RN Monitor - demonstrates appropriate technique of care of indwelling urinary catheter and new ostomy General No Jesi Cochran RN documented as of this encounter Visit Diagnoses Not on filedocumented in this encounter Care Teams Passenger Brakeman Relationship Specialty Start Date End Date Lorie Chan MD PCP - General INTERNAL MEDICINE 01/15/20 02/09/23 Moraima Toledo, RN [address] [place] [address] Regional Rehabilitation Director (Ambulatory) REGISTERED NURSE 03/19/21 documented as of this encounter
--- OUTSIDE RECORDS SUMMARY | 2024-11-02 08:10 | XMS_ITS | Encounter Summary ---
Author Organization [facility] Address [address] [place] [address]. [place], [place] [address] [place] [address] Care Team Providers Care Surveyor'S Assistant Name Role Phone Lorie Chan MD Primary Care Provider [phone] Reason for Visit * Auth/Cert Specialty Diagnoses / Procedures Referred By Shelby jama Referred To Contact Home Health Services / [facility] Home Care [facility] [address] [facility] [address] [place] [address] Phone: tel: fax: Referral ID Status Reason Start Date Expiration Date Visits Re quested Visits Authorized [id number] 1 1 Encounter Details Date Type Department Care Team (Late st Contact Info) Description 04/07/[address] 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 Family & Internal Medicine [facility] [address] [place] [address] [place] [address] [place], [place] [phone] 10/22/2025 9:15 AM KITCHEN MECHANIC Office Visit [facility] [address] [place] [address] Mily Gan MD Three [facility] [address] [place] [address] documented as of this encounter Goals Goal Patient Goal Type Associated Problems Recent Progress Patient-Stated? Author Establish Plan for Symptom Monitoring General Jesi Lagunas i, RN Monitor - demonstrates appropriate technique of care of indwelling urinary catheter and new ostomy General Jesi Ye, RN documented as of this encounter Visit Diagnoses Not on filedocumented in this encounter Care Teams Surveyor'S Assistant Relationship Specialty Start Date End Date Lorie Chan MD PCP - General INTERNAL MEDICINE 01/15/20 02/09/23 documented as of this encounter
--- OUTSIDE RECORDS SUMMARY | 2024-11-02 08:10 | XMS_ITS | Encounter Summary ---
Author Organization [facility] Address [address] [place] [address]. [place], [place] [address] [place] [address] Care Team Providers Care Sliver Handler Name Role Phone Lorie Chan MD Primary Care Provider [phone] Reason for Visit * Auth/Cert Specialty Diagnoses / Procedures Referred By Shelby jama Referred To Contact Home Health Services / [facility] HOME HEALTH [facility] Home Care [facility] [address] [facility] [address] [place] [address] Phone: tel: fax: Referral ID Status Reason Start Date Expiration Date Visits Re quested Visits Authorized [id number] 1 1 Encounter Details Date Type Department Care Team (Latest Contact Info) Description 04/13/2021 9:00 AM CDT Home Care Visit [facility] Home Care [facility] [address] [facility] [address] [place] [phone] Kathie Casey C RN /[facility] ORIENTATION VISIT Social History Tobacco Use [...] on file Legal Sex Male 9:58 PM BEHAVIORAL HEALTH RN Gender Identity Not on file Sexual Orientation [...] [facility] Family & Internal Medicine [facility] [address] [place] [address] [place] [address] [address]jon [place], [place] [id number] 10/22/2025 9:15 AM BEHAVIORAL HEALTH RN Office Visit [facility] [address] Mily Gan MD Three [facility] [address] [place] [address] documented as of this encounter Goals Goal Patient Goal Type Associated Problems Recent Progress Patient-Stated? Author Establish Plan for Symptom Monitoring General Jesi Lagunas i, RN Monitor - demonstrates appropriate technique of care of indwelling urinary catheter and new ostomy General Jesi Ye, RN documented as of this encounter Visit Diagnoses Not on filedocumented in this encounter Care Teams Sliver Handler Relationship Specialty Start Date End Date Lorie Chan MD PCP - General INTERNAL MEDICINE 01/15/20 02/09/23 documented as of this encounter
--- OUTSIDE RECORDS SUMMARY | 2024-11-02 08:10 | XMS_ITS | Encounter Summary ---
Author Organization [facility] Address [address] [place] [address]. [place], [place] [address] [place] [address] Care Team Providers Care Drywall Contractor Name Role Phone Lorie Chan MD Primary Care Provider [phone] Reason for Visit * Auth/Cert Specialty Diagnoses / Procedures Referred By Shelby jama Referred To Contact Home Health Services / [facility]ALTH [facility] Home Care [facility] [address] [facility] [address] [place] [address] Phone: tel: fax: Referral ID Status Reason Start Date Expiration Date Visits Re quested Visits Authorized [id number] 1 1 Encounter Details Date Type Department Care Team (Latest Contact Info) Description 04/08/2021 9:30 AM CDT Home Care Visit [facility] Home Care [facility] [address] [facility] [address] [place] [phone] Kathie Casey C RN /[facility] ORIENTATION VISIT Social History Tobacco Use [...] on file 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 Author Establish Plan for Symptom Monitoring General Jesi Lagunas i, RN Monitor - demonstrates appropriate technique of care of indwelling urinary catheter and new ostomy General Jesi Ye, RN documented as of this encounter Visit Diagnoses Not on filedocumented in this encounter Care Teams Drywall Contractor Relationship Specialty Start Date End Date Lorie Chan MD PCP - General INTERNAL MEDICINE 01/15/20 02/09/23 documented as of this encounter
--- OUTSIDE RECORDS SUMMARY | 2024-11-02 08:10 | XMS_ITS | Encounter Summary ---
Author Organization [facility] Address [address] [place] [address]. 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 Author Establish Plan for Symptom Monitoring General No Jesi Mixon i, RN Monitor - demonstrates appropriate technique of care of indwelling urinary catheter and new ostomy General No Jesi Cochran RN documented as of this encounter Visit Diagnoses Not on filedocumented in this encounter Care Teams Assistant Shift Supervisor Relationship Specialty Start Date End Date Lorie Chan MD PCP - General INTERNAL MEDICINE 01/15/20 02/09/23 documented as of this encounter
--- OUTSIDE RECORDS SUMMARY | 2024-11-02 08:10 | XMS_ITS | Encounter Summary ---
Author Organization [facility] Address [address] [place] [address]. [place], [place] [address] [place] [address] Care Team Providers Care Package Handler Name Role Phone Lorie Chan MD Primary Care Provider [phone] Encounter Details Date Type Department Care Team (Late st Contact Info) Description 04/07/2021 Orders Only [facility] Family & Internal Medicine - [address] [address] Lorie Chan MD [address] [place] [address] Social History Tobacco Use Types Packs/Day Years [...] file Legal Sex Male 9:58 PM DIRECTOR LIFE Gender Identity Not on file Sexual Orientation [...] [facility] Family & Internal Medicine [facility] [address] [place] [address] [place] [phone] [place] [id number] 10/22/2025 9:15 AM DIRECTOR LIFE Office Visit [facility] [address] [phone] Mily Gan MD [place] [address] [place] [address] documented as of this encounter Goals Goal Patient Goal Type Associated Problems Recent Progress Patient-Stated? Author Establish Plan for Symptom Monitoring General Jesi Lagunas i RN Monitor - demonstrates appropriate technique of care of indwelling urinary catheter and new ostomy General No Jesi Cochran RN documented as of this encounter Visit Diagnoses Not on filedocumented in this encounter Care Teams Package Handler Relationship Specialty Start Date End Date Lorie Chan MD PCP - General INTERNAL MEDICINE 01/15/20 02/09/23 documented as of this encounter
--- OUTSIDE RECORDS SUMMARY | 2024-11-02 08:10 | XMS_ITS | Encounter Summary ---
Author Organization [facility] Address [address] [place] [address]. 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 Author Establish Plan for Symptom Monitoring General No Jesi Mixon i, RN Monitor - demonstrates appropriate technique of care of indwelling urinary catheter and new ostomy General No Jesi Cochran RN documented as of this encounter Visit Diagnoses Not on filedocumented in this encounter Care Teams Public Health Inspector Relationship Specialty Start Date End Date Lorie Chan MD PCP - General INTERNAL MEDICINE 01/15/20 02/09/23 documented as of this encounter
--- OUTSIDE RECORDS SUMMARY | 2024-11-02 08:10 | XMS_ITS | Encounter Summary ---
Author Organization [facility] Address [address] [place] [address]. [place], [place] [address] [place] [address] Care Team Providers Care Turret Lathe Set Up Operator Name Role Phone Lorie Chan MD Primary Care Provider [phone] Reason for Visit * Auth/Cert Specialty Diagnoses / Procedures Referred By Shelby jama Referred To Contact Home Health Services / [facility] HOME HEALTH [facility] Home Care [facility] [address] [facility] [address] [place] [address] Phone: tel: fax: Referral ID Status Reason Start Date Expiration Date Visits Re quested Visits Authorized [id number] 1 1 Encounter Details Date Type Department Care Team (Late st Contact Info) Description 04/13/2021 9:00 AM CDT Home Care Visit [facility] Home Care [facility] [address] [facility] [address] [place] [phone] Libby Syed, RN [phone] (Work) SN OASIS DISCHARGE/ASSESSMENT Social History [...] on file Legal 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 No / Unsure 04/02/2021 1:29 PM CDT documented as of this encounter Last Filed Vital Signs Vital Sign Reading Time Taken Comments Blood Pressure 112/62 04/13/2021 9:00 AM CDT Pulse 76 04/13/2021 9:00 AM CDT Temperature 36.5 ??C (97.7 ??F) 04/13/2021 9:00 AM CD T Respiratory Rate 18 04/13/2021 9:00 AM CDT Oxygen Saturation 96% 04/13/2021 9:00 AM CDT room air Inhaled Oxygen Concentration - - Weight 69.4 kg (153 lb) 04/13/2021 9:00 AM CDT Height - - Body Mass Index 23.96 04/02/2021 1:57 PM [...] documented in this encounter Progress Notes * Susan Sanders MA - 04/13/2021 10:09 AM CDT Printed for FYI for provider * Libby Leary RN - 04/13/2021 9:44 AM CDT Patient requesting refill on senna-docusate 8.6-50 MG tablet. Pharmacy is [facility]. Patient discharged at this time, per patient request, with goals met as patient is knowledgeable ofall medications, dosing and frequency, no longer requiring wound care and patient independent with ostomy care. Pt admitted to Home Health for perforated diverticulum and new ostomy on March 24, 2021. Brief Summary of Care: Patient discharged home with mullins catheter, JITENDRA drain, abdominal incision, and new ostomy. Skilled nurse provided assessments, vs, wound care to abdominal incision and JITENDRA drain, education on medications, safety, and disease process and ostomy care. Patient no longer requiringfoley catheter, JITENDRA drain and senthil removed by surgeon. Incisional site healing without difficulty, opened to air, no opened areas noted, no signs/symptoms of infection noted. Instructed on infection prevention, signs/symptoms of infection, signs/symptoms of bleeding and when to notify MD and/or 911, patient verbalized understanding. Patient knowledgeable of all medications, dosing and frequency. Patient independent with ostomy care, supplies available and instructed on ordering supplies for ostomy. Patient discharged at this time with goals met. Discharge instructions provided to patient, patient verbalized understanding. Pt received the following services Home [facility]. Pt Agency discharged on April 13, 2021. Pt Condition/Status at Discharge: to self-care with outcomes met Recommendations for follow-up care/post-acute care: Follow up with MD as scheduled for optimal health care. documented in this encounter Plan of Treatment Upcoming Encounters Date Type Department Care Team (Late st Contact Info) Description 01/27/2025 7:00 AM CDT Office Visit [facility] Medical Group Family & Internal Medicine [facility] [address] [place] [address] [place] [address] [place] [address] 10/22/2025 9:15 AM OUTBOUND CALL CENTER REPRESENTATIVE Office Visit [facility] [address] [place] [phone] Mily Gan MD [facility] [address] [place], [place] [phone] documented as of this encounter Goals Goal [...] Type -SN - OASIS Disch arge Discipline -[facility] Problems Problem Description Start Date Status Goals Interve ntions Fall Precautions Disciplines: [facility] Patient at risk for falls 03/24/2021 Resolved on 04/13/2021 1 goal linked to scheduled/document ed intervention 3 goal interventions scheduled/document ed in this visit Collaboratio n of Care Disciplines: [facility] Collaboration for safe care. 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 03/24/2021 Resolved on 04/13/2021 1 goal linked to scheduled/document ed intervention 1 problem intervention scheduled/document ed in this visit 4 goal interventions scheduled/document ed in this visit Wound Management Disciplines: [facility] Skin integrity deficit related to: surgical wound wound. Location/site: Abdomen 03/24/2021 Resolved on 04/13/2021 1 goal linked to scheduled/document ed intervention 6 goal interventions scheduled/document ed in this visit Risk for Skin Breakdown Disciplines: [facility] Risk for skin breakdown 03/24/2021 Resolved on 04/13/2021 1 goal linked to scheduled/document ed intervention 1 goal intervention scheduled/document ed in this visit Depression Disciplines: [facility] Depression 03/24/2021 Resolved on 04/13/2021 1 goal linked to scheduled/document ed intervention 1 goal intervention scheduled/document ed in this visit Medications Disciplines: [facility] Management of home medications. 03/24/2021 Resolved on 04/13/2021 1 goal linked to scheduled/document ed intervention 3 goal interventions scheduled/document ed in this visit Goals Goal Associated Problem Outcome Goal Met? Visit Notes Patient/caregiver maintains a safe environment. Description: Patient/caregiver will demonstrate ability to maintain a safe environment without injuries/falls by May 22, 2021. Fall Precautions Completed Yes Patient meets homebound requirements. Description: Patient meets requirements of homebound status as evidenced by gait limited to household distances, limited endurance, unable to leave home safely without assistance, and pain/weakness due to major surgery. Collaboration of Care Completed Yes Patient safety met through collaboration for safe care. Description: Clinicians will communicate patient care and safety needs during episode of care through May 22, 2021. Collaboration of Care Completed Yes Patient GI/ care needs met without signs/symptoms [...] will be complete within 60 days. Ostomy Completed Yes Patient integumentary care needs met without signs/symptoms [...] infection by May 22, 2021. Wound Management Completed Yes Patient verbalizes understanding of infection prevention strategies and methods to prevent development or worsening of pressure injuries Description: Patient will verbalize understanding of infection prevention strategies and methods to prevent development or worsening of pressure injuries by May 22, 2021. Risk for Skin Breakdown Completed Yes Ability to Manage Depression Description: The Patient will verbalize and demonstrate ability to manage the patient's depression through May 22, 2021. Depression Completed Yes Patient verbalizes understanding of medication regimen Description: Patient and Caregiver will verbalize understanding of medication regimen by May 22, 2021. Medications Completed Yes Interventions Intervention Associated Problem/Goal Status Variance Visit Notes Instruct on Fall Prevention Description: Educate Patient about fall prevention. Problem:Fall Precautions Goal:Patient/caregiv er maintains a safe environment. Completed Report Falls to Provider within 24 Hours [...] strategies to prevent infection: frequent/proper hand-washing techniques, [place]all precautions, Standard precautions, avoid crowds and persons [...] met without signs/symptoms of complications Completed Patient knowledgeable of ostomy care and independent with ostomy changes. Assess Ostomy Description: - Assess effluent description, [...] signs/symptoms of infection and when to notify MD and/or 911, patient verbalized understanding. Evaluate effectiveness Description: Assess [...] of medication regimen Completed Home medication management instructed with patient. Patient verbalizes understanding of anticoagulation therapy purpose, possible side effects and complications, and bleeding precautions, strategies to prevent infection, strategies to prevent skin breakdown, treatment regimen and the importance of adherence and when to contact the physician, HH, and/or EMS. Instruct Medications Description: Instruct Patient in medication administration, purpose, dosages, preparation, scheduling, side effects, food/drug interactions, storage, and potential complications. Problem:Medications Goal:Patient verbalizes understanding of medication regimen Completed Patient instructed on medication administration, purpose, dosages, preparation, scheduling, side effects, food/drug interactions, and potential complications. Current regimen and compliance reviewed with Patient. Patient demonstrates ability to perform proper handwashing techniques and safe home medication administration. Instruct High-Risk Meds Description: Instruct Patient on high-risk medications including oral hypoglycemics, insulins, blood thinners, and narcotics. Problem:Medications Goal:Patient verbalizes understanding of medication regimen Completed documented in this encounter Care Teams Turret Lathe Set Up Operator Relationship Specialty Start Date End Date Lorie Chan MD PCP - General INTERNAL MEDICINE 01/15/20 02/09/23 documented as of this encounter
--- OUTSIDE RECORDS SUMMARY | 2024-11-02 08:10 | XMS_ITS | Encounter Summary ---
Author Organization [facility] Address [address] [place] [address]. 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 No / Unsure 04/01/2021 10:13 AM CDT documented as of this encounter [...] 1 atorvastatin 40 MG tabletIndications:M ixed hyperlipidemia [The details of the medication are not available because there are pending changes by a home health clinician.] 90 tablet 1 1 07/05/20 21 CPAP SUPPLIESIndications :RANDY on CPAP 1 Units by Does not apply route nightly at bedtime. Mask, tubing & filters 1 Device 3 0 10/09/20 24 HYDROcodone-acetami nophen 5-325 MG tabletIndications:A cute Pain < 7 Day Supply Take 1 tablet by mouth every 6 (six) hours as needed for Pain. Indications: Acute Pain < 7 Day Supply 20 tablet 1 09/22/20 21 senna-docusate 8.6-50 MG tablet [The details of the medication are not available because there are pending changes by a home health clinician.] 10 tablet 1 04/07/20 21 documented as of this encounter Plan of Treatment Upcoming Encounters Date Type Department Care Team (Late st Contact Info) Description 01/27/2025 7:00 AM CDT Office Visit [facility] Family & Internal Medicine [facility] [id number] [place] [address] Ilir Nelson PA [address] [place] [phone] 10/22/2025 9:15 AM VENEER JOINTER OPERATOR Office Visit [facility] [address] Mily Gan MD [address] [phone] documented as of this encounter Goals Goal Patient Goal Type Associated Problems Recent Progress Patient-Stated? Author Establish Plan for Symptom Monitoring General Jesi Lagunas i RN Monitor - demonstrates appropriate technique of care of indwelling urinary catheter and new ostomy General Jesi Ye RN documented as of this encounter Procedures Procedure Name Priority Date/Time Associated Diagnosis Comments XR CYSTOGRAM Routine 04/01/2021 11:39 AM CDT Perforated diverticulum Bowel perforation (CMS/HCC HHS/HCC) documented in this encounter Results * XR CYSTOGRAM (04/01/2021 11:39 AM CDT) Anatomical Region Laterality Modality Abdomen, Pelvis Radiographic Leola ging, Radiographic Imaging 04/01/2021 1:25 PM CDT Impressions 04/01/2021 1:30 PM CDT FINDINGS AND IMPRESSION: 1. ??After a shift coordinator image was obtained, the bladder was allowed to fill with Isovue-370 by gravity until the patient felt a full bladder sensation. Numerous images were acquired for the procedure in the AP and bilateral oblique projections. Final images were obtained after allowing the bladder to empty. 2. ??Pharmacist Critical Care radiograph demonstrates the patient is status post midline laparotomy with an underlying drain traversing the pelvis. An indwelling Osborne catheter is in place. 3. ??Bladder capacity: 300 mL 4. ??The bladder fills with contrast without evidence of contrast extravasation. 5. ??A significant amount of residual contrast was noted in the bladder after it was allowed to drain into the collection bag through the indwelling Osborne catheter. Referred By: MARGARITA SLOAN Interpreted By: Moncho Cheng, 04/01/2021 1:25 PM Narrative 04/01/2021 1:30 PM CDT IMAGING STUDIES: ??XR CYSTOGRAM ? DATE: 04/01/2021 10:23 AM HISTORY: ?? Diverticulitis of intestine, part unspecified, with perforation and abscess without bleeding, Perforation of intestine (nontraumatic) small bladder repair ? COMPARISON STUDIES: No previous available. ?? FLUOROSCOPY TIME: 1.1 minutes EXPOSURE DOSE INDEX: 19.7 mGy. Procedure Note Moncho Cheng MD - 04/01/2021 IMAGING STUDIES: XR CYSTOGRAM DATE: 04/01/2021 10:23 AM HISTORY: Diverticulitis of intestine, part unspecified, with perforationand abscess without bleeding, Perforation of intestine (nontraumatic)small bladder repair COMPARISON STUDIES: No previous available. FLUOROSCOPY TIME: 1.1 minutes EXPOSURE DOSE INDEX: 19.7 mGy. FINDINGS AND IMPRESSION: 1. After a shift coordinator image was obtained, the bladder was allowed to fill withIsovue- 370 by gravity until the patient felt a full bladder sensation.Numerous images were acquired for the procedure in the AP and bilateraloblique projections. Final images were obtained after allowing the bladderto empty. 2. Pharmacist Critical Care radiograph demonstrates the patient is status post midlinelaparotomy with an underlying drain traversing the pelvis. An indwellingFoley catheter is in place. 3. Bladder capacity: 300 mL 4. The bladder fills with contrast without evidence of contrastextravasation. 5. A significant amount of residual contrast was noted in the bladderafter it was allowed to drain into the collection bag through theindwelling Osborne catheter. Referred By: MARGARITA SLOAN Interpreted By: Moncho Cheng, 04/01/2021 1:25 PM us Margarita Sloan MD FLUOROSCOPY Final Result documented in this encounter Visit Diagnoses Diagnosis Perforated diverticulum Bowel perforation (CMS/HCC HHS/HCC) Perforation of intestine documented in this encounter Administered Medications Inactive Administered Medications - up to 3 most recent administrations Medication Order MAR Action Action Date Dose Rate Site iopamidol (ISOVUE-370) 76 % injection 300 mL 300 mL, Other, IMG once as needed, Contrast, 1 dose, Starting on Yamilex 04/01/21 at 1141, Until Yamilex 04/01/21 at 1141 Given 04/01/2021 11:41 AM CDT 300 mLs Other documented in this encounter Care Teams Payroll Benefits Clerk Relationship Specialty Start Date End Date Lorie Chan MD PCP - General INTERNAL MEDICINE 01/15/20 02/09/23 documented as of this encounter
--- OUTSIDE RECORDS SUMMARY | 2024-11-02 08:10 | XMS_ITS | Encounter Summary ---
Author Organization [facility] Address [address] [place] [address]. 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 Author Establish Plan for Symptom Monitoring General No Jsei [place] i, RN Monitor - demonstrates appropriate technique of care of indwelling urinary catheter and new ostomy General No Jesi Cochran RN documented as of this encounter Visit Diagnoses Not on filedocumented in this encounter Care Teams Transition Rn Relationship Specialty Start Date End Date Lorie Chan MD PCP - General INTERNAL MEDICINE 01/15/20 02/09/23 documented as of this encounter
--- OUTSIDE RECORDS SUMMARY | 2024-11-02 08:11 | XMS_ITS | Encounter Summary ---
Author Organization [facility] Address [address] [place] [address]. 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 Author Establish Plan for Symptom Monitoring General Jesi Lagunas i, RN Monitor - demonstrates appropriate technique of care of indwelling urinary catheter and new ostomy General Jesi Ye RN documented as of this encounter Visit Diagnoses Not on filedocumented in this encounter Care Teams Home Specialist Relationship Specialty Start Date End Date Lorie Chan MD PCP - General INTERNAL MEDICINE 01/15/20 02/09/23 Moraima Toledo, RN [facility] [place], [place] [address] Estate Administrator (Ambulatory) REGISTERED NURSE 03/19/21 documented as of this encounter
--- OUTSIDE RECORDS SUMMARY | 2024-11-02 08:11 | XMS_ITS | Encounter Summary ---
Author Organization [facility] Address [address] [place] [address]. [place], [place] [address] [place] [address] Care Team Providers Care Skiver Counter Name Role Phone Lorie Chan MD Primary Care Provider [phone] Moraima Toledo RN Unavailable [phone] Reason for Visit * Auth/Cert Specialty Diagnoses / Procedures Referred By Shelby t Referred To Contact Home Health Services / [facility] HOME HEALTH [facility] Home Care [facility] [address] [address] Phone: tel: fax: Referral ID Status Reason Start Date Expiration Date Visits Re quested Visits Authorized [id number] 1 1 Encounter Details Date Type Department Care Team (Late st Contact Info) Description 03/30/2021 10:00 AM CDT Home Care Visit 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 No / Unsure 03/29/2021 9:55 AM CDT documented as of this encounter Last Filed Vital Signs Vital Sign Reading Time Taken Comments Blood Pressure 116/60 03/30/2021 9:57 AM CDT Pulse 70 03/30/2021 9:57 AM CDT Temperature 36.1 ??C (97 ??F) 03/30/2021 9:57 AM CDT Respiratory Rate 18 03/30/2021 9:57 AM CDT Oxygen Saturation 98% 03/30/2021 9:57 AM CDT room air Inhaled Oxygen Concentration - - Weight 68.3 kg (150 lb 8 oz) 03/30/2021 9:57 AM CDT Height - - Body Mass Index 24.29 03/29/2021 9:58 AM CDT documented in this encounter Functional [...] Medical Group Family & Internal Medicine - [place] [address] [place] [address] [place] [address] [place], [place] [phone] 10/22/2025 9:15 AM FOOD SERVICE ASSOCIATE Office Visit [facility] [address] Mily Gan MD [address] [phone] documented as of this encounter Goals Goal [...] Visit Type -SN - Home Visit Discipline -Assisted Problems Problem Description Start Date Status Goals Interve ntions Fall Precautions Disciplines: Assisted Patient at risk for falls 03/24/2021 Active 1 goal linked to scheduled/document ed intervention 3 goal interventions scheduled/document ed in this visit Collaboration of Care Disciplines: Assisted Collaboration for safe care. 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 03/24/2021 Active 1 goal linked to scheduled/document ed intervention 1 problem intervention scheduled/document ed in this visit 4 goal interventions scheduled/document ed in this visit Wound Management Disciplines: Assisted Skin integrity deficit related to: surgical wound wound. Location/site: Abdomen 03/24/2021 Active 1 goal linked to scheduled/document ed intervention 8 goal interventions scheduled/document ed in this visit Urinary Catheter Disciplines: Assisted Urinary catheter 03/24/2021 Active 1 goal linked to scheduled/document ed intervention 2 goal interventions scheduled/document ed in this visit Risk for Skin Breakdown Disciplines: Assisted Risk for skin breakdown 03/24/2021 Active 1 goal linked to scheduled/document ed intervention 1 goal intervention scheduled/document ed in this visit Depression Disciplines: Assisted Depression 03/24/2021 Active 1 goal linked to scheduled/document ed intervention 1 goal intervention scheduled/document ed in this visit Medications Disciplines: Assisted 03/24/2021 Active 1 goal linked to scheduled/document [...] infection through May 22, 2021. Urinary Catheter Progressing No Patient verbalizes understanding of infection [...] No Patient verbalizes understanding of medication regimen Medications No Interventions Intervention Associated Problem/Goal Status [...] nurse reviewed next skilled nurse visit for morning with assessments, vs, ongoing wound care to abdomen, JITENDRA dressing change and monitoring and ostomy monitoring, patient agreeable and verbalized understanding. Instruct Description: Patient up as tolerated. Skilled nurse to instruct patient on fall prevention. Problem:Collaboratio n of Care Completed Instruct Description: Skilled nurse to instruct patient on low fiber diet as tolerated. Problem:Collaboratio n of Care Completed Skilled nurse educated patient on proper hydration and protein in diet, patient verbalized understanding. Instruct coping Description: - Assess Patient and [...] strategies to prevent infection: frequent/proper hand-washing techniques, [place] precautions, Standard precautions, avoid crowds and persons [...] on the signs/symptoms of infection. Problem:Ostomy Completed GINA Valle provided further ostomy care and education with patient. Wound Measurement Description: Wound measured weekly by [...] met without signs/symptoms of complications Completed Patient has JITENDRA drain to the right side of abdomen, patient continues to keep a daily log and provided drainage output as follows: 03/29-5 cc, 03/28 10 cc, 03/27 10 cc, 03/26 20 cc, 03/25 30. Currently scant amount of serosanguineous drainage noted in bulb. Skilled nurse using aseptic technique provided dressing change to JITENDRA drain per MD protocol, patient tolerated well. Instruct infection prevention Description: Instruct Patient and [...] without signs/symptoms of complications Completed Skilled nurse using aseptic technique removed old dressing, painted incision with povidone iodine swab, allowed to dry, applied non-adherent gauze, applied ABD dressing, secured with tape, patient tolerated well. Skin Integrity Description: Instruct patient and caregiver [...] to contact physician, Dr. Federico Amador at [phone]. - Instruct Patient and on home management [...] patent without signs/symptoms of infection Completed Patient and instructed on frequent/proper hand-washing techniques, [place] precautions, Standard precautions, avoid crowds and persons with known infections, staying current with immunizations, s/s of infection, use of incentive spirometer, use of antibiotics and encourage adequate diet and fluid intake. Patient and verbalizes understanding. Prevention of Pressure Injuries Description: - Instruct [...] Goal:Ability to Manage Depression Completed Instruct Medications Problem:Medications Goal:Patient verbalizes understanding of medication regimen Scheduled Instruct High-Risk Meds Problem:Medications Goal:Patient verbalizes understanding of medication regimen Scheduled documented in this encounter Care Teams Skiver Counter Relationship Specialty Start Date End Date Lorie Chan MD PCP - General INTERNAL MEDICINE 01/15/20 02/09/23 Moraima Toledo, RN [address] [place] [address] Performance Consultant (Ambulatory) REGISTERED NURSE 03/19/21 documented as of this encounter
--- OUTSIDE RECORDS SUMMARY | 2024-11-02 08:12 | XMS_ITS | Encounter Summary ---
Author Organization [facility] Address [address] [place] [address]. [address] [place] [address] [place] [address] Care Team Providers Care Manager Camp Name Role Phone Lorie Chan MD Primary Care Provider [phone] Moraima Toledo RN Unavailable [phone] Reason for Visit * Auth/Cert Specialty Diagnoses / Procedures Referred By Shelby t Referred To Contact Home Health Services / [facility] HOME HEALTH [facility] Home Care [facility] [address] [facility] [address] [place] [address] Phone: tel: fax: Referral ID Status Reason Start Date Expiration Date Visits Re quested Visits Authorized [id number] 1 1 Encounter Details Date Type Department Care Team (Latest Contact Info) Description 03/24/2021 Home Care Visit [facility] Home Care [facility] [address] 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 Yes Home Health PT and Home Health OT recommended, patient declines at this time. Barriers to discharge - New ostomy Progress towards goals - Patient admitted to [facility] on March 18, 2021 with perforated diverticulum. Patient discharged home on March 23, 2021 with home health. Patient declined to have PT/OT services at this time. Skilled nurse to provide assessments, wound care, JITENDRA monitoring, ostomy education, educationon medications, safety and disease process with skilled nurse frequency of 2wk4, 1wk4. documented in this encounter Plan of Treatment Upcoming Encounters Date Type Department Care Team (Late st Contact Info) Description 01/27/2025 7:00 AM CDT Office Visit [facility] Family & Internal Medicine [facility] [address] [place] [phone] [place] [address] [place], [place] [phone] 10/22/2025 9:15 AM DRAFT ROLLER PICKER Office Visit [facility] [address] Mily Gan MD [address] [phone] documented as of this encounter Goals Goal Patient Goal Type Associated Problems Recent Progress Patient-Stated? Author Establish Plan for Symptom Monitoring General No Jesi Mixon i, RN Monitor - demonstrates appropriate technique of care of indwelling urinary catheter and new ostomy General No Jesi Cochran RN documented as of this encounter Visit Diagnoses Not on filedocumented in this encounter Care Teams Manager Camp Relationship Specialty Start Date End Date Lorie Chan MD PCP - General INTERNAL MEDICINE 01/15/20 02/09/23 Moraima Toledo, RN [address] [place] [address] Direct Sales Professional (Ambulatory) REGISTERED NURSE 03/19/21 documented as of this encounter
--- OUTSIDE RECORDS SUMMARY | 2024-11-02 08:12 | XMS_ITS | Encounter Summary ---
Author Organization [facility] Address [address] [place] [address]. 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 No / Unsure 03/18/2021 8:22 PM CDT documented as of this encounter Functional Status documented as of this encounter Mental Status * Question Answer Entry Date Author Status Because of a physical, mental, or emotional condition, do you have serious difficulty concentrating, remembering, or making decisions? No 03/18/2021 8:35 PM CDT Polly Oliveira RN Active documented in this encounter Plan of Treatment Upcoming Encounters Date Type Department Care Team (Late st Contact Info) Description 01/27/2025 7:00 AM CDT Office Visit [facility] Family & Internal Medicine [facility] [address] [place] [address] [place] [address] [place] [address] 10/22/2025 9:15 AM NCA CERTIFIED CONCIERGE Office Visit [facility] [address] [place] [address] [address] Mily Gan MD [address] [address] documented as of this encounter Goals Goal Patient Goal Type Associated Problems Recent Progress Patient-Stated? Author Establish Plan for Symptom Monitoring General No Jesi Mixon i, RN Monitor - demonstrates appropriate technique of care of indwelling urinary catheter and new ostomy General No Jesi Cochran RN documented as of this encounter Visit Diagnoses Not on filedocumented in this encounter Care Teams Yard Supervisor Relationship Specialty Start Date End Date Lorie Chan MD PCP - General INTERNAL MEDICINE 01/15/20 02/09/23 Moraima Toledo, RN [address] [place], [place] [address] Agronomy Supervisor (Ambulatory) REGISTERED NURSE 03/19/21 documented as of this encounter
--- OUTSIDE RECORDS SUMMARY | 2024-11-02 08:12 | XMS_ITS | Encounter Summary ---
Author Organization [facility] Address [address] [place] [address]. 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 Author Establish Plan for Symptom Monitoring General Jesi Lagunas i RN Monitor - demonstrates appropriate technique of care of indwelling urinary catheter and new ostomy General No Jesi Cochran RN documented as of this encounter Visit Diagnoses Not on filedocumented in this encounter Care Teams Offc Spec Relationship Specialty Start Date End Date Lorie Chan MD PCP - General INTERNAL MEDICINE 01/15/20 02/09/23 Moraima Toledo, RN [address] [place], [place] [address] Electrical Mechanic (Ambulatory) REGISTERED NURSE 03/19/21 documented as of this encounter
--- OUTSIDE RECORDS SUMMARY | 2024-11-02 08:12 | XMS_ITS | Encounter Summary ---
Author Organization [facility] Address [address] [place] [address]. [place], [place] [address] [place] [address] Care Team Providers Care Form Setter Helper Name Role Phone Lorie Chan MD Primary Care Provider [phone] Moraima Toledo RN Unavailable [phone] Reason for Visit * Auth/Cert Specialty Diagnoses / Procedures Referred By Shelby t Referred To Contact Home Health Services / [facility] [address] [address] Phone: tel: fax: Referral ID Status Reason Start Date Expiration Date Visits Re quested Visits Authorized [id number] 1 1 Encounter Details Date Type Department Care Team (Late st Contact Info) Description 03/25/2021 9:00 AM CDT Home Care Visit [facility] [address] [facility] [address] [place] [phone] Libby Syed RN [phone] (Work) SN HOME VISIT Social History Tobacco [...] on file Legal Sex Male 9:[address] OFFICER Gender Identity Not on file Sexual Orientation Not on file COVID-19 Exposure Response Date Recorded In the last month, have you been in contact with someone who was confirmed or suspected to have Coronavirus / COVID-19? No / Unsure 03/18/2021 8:22 PM CDT documented as of this encounter Last Filed Vital Signs Vital Sign Reading Time Taken Comments Blood Pressure 116/62 03/25/2021 9:16 AM CDT Pulse 80 03/25/2021 9:16 AM CDT Temperature 36.3 ??C (97.3 ??F) 03/25/2021 9:16 AM CD T Respiratory Rate 18 03/25/2021 9:16 AM CDT Oxygen Saturation 97% 03/25/2021 9:16 AM CDT room air Inhaled Oxygen Concentration [...] Author Status No 03/18/2021 8:35 PM CDT Acti ve * Do you have serious [...] Medical Group Family & Internal Medicine - [place] [address] [place] [address] [place] [address] [place], [place] [id number] 10/22/2025 9:[address] OFFICER Office Visit [facility] [address] [phone] Mily Gan MD [address] [place], [place] [id number] documented as of this encounter Goals Goal [...] Visit Type -SN - Home Visit Discipline -Group Home Problems Problem Description Start Date Status Goals Interve ntions Fall Precautions Disciplines: Group Home Patient at risk for falls 03/24/2021 Active 1 goal linked to scheduled/document ed intervention 3 goal interventions scheduled/document ed in this visit Collaboration of Care Disciplines: Group Home Collaboration for safe care. 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 03/24/2021 Active 1 goal linked to scheduled/document ed intervention 1 problem intervention scheduled/document ed in this visit 4 goal interventions scheduled/document ed in this visit Wound Management Disciplines: Group Home Skin integrity deficit related to: surgical wound wound. Location/site: Abdomen 03/24/2021 Active 1 goal linked to scheduled/document ed intervention 8 goal interventions scheduled/document ed in this visit Urinary Catheter Disciplines: Group Home Urinary catheter 03/24/2021 Active 1 goal linked to scheduled/document ed intervention 2 goal interventions scheduled/document ed in this visit Risk for Skin Breakdown Disciplines: Group Home Risk for skin breakdown 03/24/2021 Active 1 goal linked to scheduled/document ed intervention 1 goal intervention scheduled/document ed in this visit Depression Disciplines: Group Home Depression 03/24/2021 Active 1 goal linked to scheduled/document ed intervention 1 goal intervention scheduled/document ed in this visit Medications Disciplines: Group Home 03/24/2021 Active 1 goal linked to scheduled/document [...] Goal:Patient/caregive r maintains a safe environment. Completed Report Falls [...] nurse reviewed next skilled nurse visit for continued ostomy care/education, medication management, wound care, and JITENDRA dressing and monitoring, patient agreeable and verbalized understanding. Instruct [...] strategies to prevent infection: frequent/proper hand-washing techniques, [place] precautions, Standard precautions, avoid crowds and persons [...] of complications Completed Skilled nurse using aseptic technique, removed old dressing, applied new drain sponge, applied 4x4 gauze, secured with medipore tape, patient tolerated well. Instruct infection prevention Description: [...] technique removed old dressing, painted incision with providone iodine swab, allowed to dry, applied non-adherent gauze, applied ABD dressing, secured with mediport tape, patient tolerated well. No drainage or signs/symptoms of infection noted. Skin Integrity Description: Instruct patient and caregiver [...] to contact physician, Dr. Federico Amador at [phone]. - Instruct Patient and on home management [...] patent without signs/symptoms of infection Completed Patient instructed on frequent/proper hand-washing techniques, [place] precautions, Standard precautions, avoid crowds and persons with known infections, staying current with immunizations, s/s of infection, use of incentive spirometer, use of antibiotics and encourage adequate diet and fluid intake. Patient verbalizes understanding. Prevention of Pressure Injuries Description: [...] Scheduled documented in this encounter Care Teams Form Setter Helper Relationship Specialty Start Date End Date Lorie Chan MD PCP - General INTERNAL MEDICINE 01/15/20 02/09/23 Moraima Toledo, RN [facility] [place], [place] [address] Medical Billing Associate (Ambulatory) REGISTERED NURSE 03/19/21 documented as of this encounter
--- OUTSIDE RECORDS SUMMARY | 2024-11-02 08:12 | XMS_ITS | Encounter Summary ---
Author Organization [facility] Address [address] [place] [address]. [place], [place] [address] [place] [address] Care Team Providers Care Rn Medication Name Role Phone Lorie Chan MD Primary Care Provider [phone] Moraima Toledo RN Unavailable [phone] Reason for Visit * Reason Comments TCM Pt here for follow u p on hospital discharge 03/23 Encounter Details Date Type Department Care Team (Late st Contact Info) Description 03/29/2021 10:00 AM CDT Office Visit [facility] Group Family & Internal Medicine [address] [address] Antonia Zamora, JBOSS DEVELOPER [address] [phone] TCM (Pt here for follow up on hospital discharge 03/23) Social History Tobacco Use Types Packs/Day Years [...] on file 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 No / Unsure 03/29/2021 9:55 AM CDT documented as of this encounter Last Filed Vital Signs Vital Sign Reading Time Taken Comments Blood Pressure 110/78 03/29/2021 9:58 AM CDT Pulse 76 03/29/2021 9:58 AM CDT Temperature 37.1 ??C (98.7 ??F) 03/29/2021 9:58 AM CD T Respiratory Rate 16 03/29/2021 9:58 AM CDT Oxygen Saturation 97% 03/29/2021 9:58 AM CDT Inhaled Oxygen Concentration - - Weight 68.9 kg (152 lb) 03/29/2021 9:58 AM CDT Height 167.6 cm (5' 6 ) 03/29/2021 9:58 AM CDT Body Mass Index 24.53 03/29/2021 9:58 AM CDT documented in this [...] Status No 03/18/2021 8:35 PM CDT Polly Oliveiar RN Active * Because of a physical, [...] documented in this encounter Progress Notes * Antonia Zamora, JBOSS DEVELOPER - 03/29/2021 10:00 AM CDT SUBJECTIVE: Natan Patel is seen for Transitional Care Management [id number] visit following discharge from hospital. Please see recent Health Safety And Environment Manager telephone encounter. Discharge date was 03/23/21 The reason for hospitalization was perforated diverticulum Current status is as follows: stable. Other medical problems addressed this visit: Natan reports since being home from the hospital he has been doing well. He notes two days ago he had to take a stool softner due to out put from ostomy was marble' like. He notes since taking the stool softner his stool has returned to pudding consistency. He denies any blood in stool or dark colored stools, fever, nausea, vomiting or distention. He has follow-up appointment scheduled with Dr. Amador later this week to discuss removal of mullins catheter and JITENDRA drain. He continue to empty the JITENDRA drain once a day in the evening and has noticed drainage has decreased. He has home health that comes to his home twice weekly and he continues to decline PT/OT. He does note some discomfort in his lower left quadrant when moving from sitting to standing, but reports the pain subsides after the movement is complete. He additionally notes since being discharged some low back pain that is made better with movement for laying down. He denies fever,chills, SOB, numbness, tingling, weakness or gait problem. He continues to be on restriction for lifting nothing greater then 10lbs. Of note he reports not having tubing for his CPAP machine related to his sleep apnea. He is requesting new tubing and previously had supplies from [facility] in [place], [place]. He is not taking [place] since discharge from the hospital. They have no additional concerns today. Updated medication list: Current Outpatient Medications Medication Sig ??? amoxicillin-clavulanate 875-125 MG tablet Take 1 tablet (875 mg total) by mouth 2 (two) times daily for 7 days. (Patient taking differently: Take 1 tablet by mouth 2 (two) times daily. Indications: perforated diverticulum) ??? Ascorbic Acid (VITAMIN C) 100 MG [...] High Amount of Fats in the Blood) ??? Cholecalciferol (VITAMIN D) 50 MCG (2000 UT) Cap Take 25 mcg by mouth daily. Indications: Vitamin D Deficiency ??? senna-docusate 8.6-50 MG tablet Take 1 tablet by mouth daily as needed for Constipation. ??? Vitamin E 400 units Tab Take [...] bedtime. Mask, tubing & filters Indications: RANDY) ??? HYDROcodone-acetaminophen 5-325 MG tablet Take 1 tablet by mouth every 6 (six) hours as needed for Pain. Indications: Acute Pain < 7 Day Supply No current facility-administered medications for this visit. OBJECTIVE: Filed Vitals: 03/29/21 0958 BP: 110/78 Pulse: 76 Resp: 16 Temp: 98.7 ??F (37.1 ??C) TempSrc: Temporal SpO2: 97% Weight: 68.9 kg (152 lb) Height: 5' 6 (1.676 m) General appearance: alert and in no apparent distress Chest: clear, no wheezes, rales or rhonchi, symmetric air entry, no tachypnea, retractions or cyanosis Cardiovascular: heart RRR without murmur, normal S1, S2, no murmurs, rubs, clicks or gallops Abdomen: soft, nontender, no masses or organomegaly, noted ostomy and JITENDRA drain. JITENDRA drain with pink serosanginous drainage and ostomy site without erythema or pain Extremities: no edema Neuro: alert, oriented x 3, no focal findings ASSESSMENT: 1. Bowel perforation (CMS/HCC) PLAN: 1. Medications/DME - Continue current medications. 2. Lab/Diagnostics - None. 3. Education - Current treatment discussed and patient education given as appropriate. 4. Referrals - will send order for new tubing to supply company and update if new sleep study needed due to no machine use for one year. 5. RTC - 1 month(s); will keep scheduled follow-up with Dr. Amador later this week with repeat cystogram per her orders. Cosigned by Ben Diego MD at 03/29/2021 11:28 AM CDT documented in this encounter Plan of Treatment Upcoming Encounters Date Type Department Care Team (Late st Contact Info) Description 01/27/2025 7:00 AM CDT Office Visit [facility] Family & Internal Medicine [facility] [address] [place] [address] [place] [address] [place] [address] 10/22/2025 9:15 AM BROADCAST PROGRAM DIRECTOR Office Visit [facility] [address] Mily Gan MD [address] [id number] documented as of this encounter Goals Goal Patient Goal Type Associated Problems Recent Progress Patient-Stated? Author Establish Plan for Symptom Monitoring General Jesi Lagunas i RN Monitor - demonstrates appropriate technique of care of indwelling urinary catheter and new ostomy General Jesi Ye RN documented as of this encounter Visit Diagnoses Diagnosis Bowel perforation (CMS/HCC HHS/HCC)- Primary Perforation of intestine documented in this encounter Care Teams Rn Medication Relationship Specialty Start Date End Date Lorie Chan MD PCP - General INTERNAL MEDICINE 01/15/20 02/09/23 Moraima Toledo, RN [address] [place] [address] Health Safety And Environment Manager (Ambulatory) REGISTERED NURSE 03/19/21 documented as of this encounter
--- OUTSIDE RECORDS SUMMARY | 2024-11-02 08:12 | XMS_ITS | Encounter Summary ---
Author Organization [facility] Address [address] [place] [address]. [employer], [place] [address] [place] [address] Care Team Providers Care Med Surg Rn Name Role Phone Lorie Chan MD Primary Care Provider [phone] Moraima Toledo RN Unavailable [phone] Reason for Visit * Reason Onset Date Comments TCM 03/24/2021 [facility] 03/18-03/23 Encounter Details Date Type Department Care Team (Late st Contact Info) Description 03/24/2021 Patient Outreach [facility] Medical Group Family & Internal Medicine [address] [address] 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 Patient admitted and diagnosed with perforated sigmoid diverticulitis. Patient underwent open sigmoidectomy with repair of bladder with ostomy. Patient did well post op- discharged home with instructions to f/u with Dr. Mayer on 04/02. Pertinent Labs: See Epic Pertinent Procedures/Imaging performed while inpatient: See Epic Vaccines Given While Inpatient: no Discharge Disposition: Home with Home Health -[facility] Any follow up appointments needed to be scheduled: no Future Appointments Date Time Provider Department Center 03/24/2021 10:15 AM Libby Leary RN [facility] 03/29/2021 10:00 AM PATO Alvarado [facility] 04/01/2021 10:30 AM SJ XR 1 [facility] 04/02/2021 1:40 PM Federico Mayer MD [facility] 07/14/2021 8:00 AM Lorie Chan MD [facility] Referrals needed: no Any follow up labs/imagining needed: yes, cystogram on 04/01 Have lab/imaging orders been placed: yes Allergies: Allergies Allergen Reactions ??? Morphine Itching Medications: Outpatient medications have been reconciled with hospital discharge list. See below for changes. Current Outpatient Medications Medication Sig Dispense Refill ??? amoxicillin-clavulanate 875-125 MG tablet Take 1 tablet (875 mg total) by mouth 2 (two) times daily for 7 days. 14 tablet 0 ??? Ascorbic Acid (VITAMIN C) 100 MG tablet Take 100 mg by mouth daily. ??? aspirin 81 MG chewable tablet Chew 81 mg by mouth daily. ??? atorvastatin 40 MG tablet Take 1 tablet (40 mg total) by mouth nightly at bedtime. 90 tablet 1 ??? Cholecalciferol (VITAMIN D) 50 MCG (2000 UT) Cap Take 25 mcg by mouth daily. ? ? CPAP SUPPLIES 1 Units by Does not apply route nightly at bedtime. Mask, tubing & filters 1 Device 3 ??? HYDROcodone-acetaminophen 5-325 MG tablet Take 1 tablet by mouth every 6 (six) hours as needed for Pain. Indications: Acute Pain < 7 Day Supply 20 tablet 0 ??? Misc Natural Products (OSTEO BI-FLEX JOINT SHIELD OR) Take 1 tablet by mouth 2 (two) times daily. ??? senna-docusate 8.6-50 MG tablet Take 1 tablet by mouth daily as needed for Constipation. 10 tablet 0 ??? Vitamin E 400 units Tab Take 400 Units by mouth daily. ??? zinc gluconate 50 MG Tab Take 1 tablet by mouth daily. No current facility-administered medications for this visit. Discontinued Medications: meloxicam Does patient have difficulty affording medication: No Do any medications need refilled: No Does patient have access to care and services (rides, etc)? Yes Patient Status: (Including education, discharge instructions, s/sx to infection, and when to seek medical attn) Spoke w/ patient. Introduced self and explained role of child day care provider. All discharge instructions reviewed. Patient states that he is doing well. Patient now with mullins catheter, new ostomy and JPdrain from procedure. Patient reports soft output from ostomy. Denies any issues with mullins catheter. Patient reports logging all output from JITENDRA drain. Patient aware of need for cystogram on 04/01. Patient to see PCP on 03/[address] Mayer on 04/02. Paitent reports pain is controlled. Denies need for pain pill. He states that appetite is good. Patient aware of importance of low fiber diet. Patientable to verbalize foods he should avoid. Coordinator educated on S/S of infx. Med rec performed, nodiscrepancies found. [facility] home health arrived at patient's home during phone call. Patient denies any further concerns. Patient verbalizes understanding of all education provided. S/S to report have been discussed and patient agrees to call CC or PCP with any new S/S or concerns. Care coordination team to continue to follow. Goals ??? Establish Plan for Symptom Monitoring ??? Monitor - demonstrates appropriate technique of care of indwelling urinary catheter and new ostomy Plan of Care: Care coordination team to continue to follow * Summer Verma RN - 03/24/2021 8:36 AM CDT See below. documented in this encounter Plan of Treatment Upcoming Encounters Date Type Department Care Team (Late st Contact Info) Description 01/27/2025 7:00 AM CDT Office Visit [facility] Medical Group Family & Internal Medicine - [address] [place] [address] [place] [address] [place] [address] 10/22/2025 9:15 AM SHOT PEENING OPERATOR Office Visit [facility] [address] Mily Gan MD [address] [place] [address] documented as of this encounter Goals Goal Patient Goal Type Associated Problems Recent Progress Patient-Stated? Author Establish Plan for Symptom Monitoring General No Jesi Mixon i RN Monitor - demonstrates appropriate technique of care of indwelling urinary catheter and new ostomy General Jesi Ye RN documented as of this encounter Visit Diagnoses Not on filedocumented in this encounter Care Teams Med Surg Rn Relationship Specialty Start Date End Date Lorie Chan MD PCP - General INTERNAL MEDICINE 01/15/20 02/09/23 Moraima Toledo, RN [address] [place] [address] Logging Specialist (Ambulatory) REGISTERED NURSE 03/19/21 documented as of this encounter
--- OUTSIDE RECORDS SUMMARY | 2024-11-02 08:12 | XMS_ITS | Encounter Summary ---
Author Organization [facility] Address [address] [place] [address]. [place], [place] [address] [place] [address] Care Team Providers Care Sociology Adjunct Instructor Name Role Phone Lorie Chan MD Primary Care Provider [phone] Moraima Toledo RN Unavailable [phone] Reason for Visit * Auth/Cert Specialty Diagnoses / Procedures Referred By Shelby t Referred To Contact Home Health Services / [facility] Home Care [facility] [address] [facility] [address] [place] [address] Phone: tel: fax: Referral ID Status Reason Start Date Expiration Date Visits Re quested Visits Authorized [id number] 1 1 Encounter Details Date Type Department Care Team (Latest Contact Info) Description 03/25/2021 9:30 AM CDT Home Care Visit [facility] [address] [facility] [address] [place] [phone] Kathie Casey WOC RN /[facility] ORIENTATION VISIT Social History Tobacco Use Types [...] on file 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 Author Establish Plan for Symptom Monitoring General No Jesi Mixon i, RN Monitor - demonstrates appropriate technique of care of indwelling urinary catheter and new ostomy General No Jesi Cochran RN documented as of this encounter Visit Diagnoses Not on filedocumented in this encounter Care Teams Sociology Adjunct Instructor Relationship Specialty Start Date End Date Lorie Chan MD PCP - General INTERNAL MEDICINE 01/15/20 02/09/23 Moraima Toledo, RN [address] [place] [address] Adjunct Mathematics Instructor (Ambulatory) REGISTERED NURSE 03/19/21 documented as of this encounter
--- OUTSIDE RECORDS SUMMARY | 2024-11-02 08:12 | XMS_ITS | Encounter Summary ---
Author Organization [facility] Address [address] [place] [address]. [place], [place] [id number] [place] [id number] Care Team Providers Care Fish Warden Name Role Phone Lorie Chan MD Primary Care Provider [phone] Moraima Toledo RN Unavailable [phone] Reason for Visit * Auth/Cert Specialty Diagnoses / Procedures Referred By Shelby t Referred To Contact Home Health Services / [facility] HOME HEALTH [facility] Home Care [facility] [address] [place] [address] Phone: tel: fax: Referral ID Status Reason Start Date Expiration Date Visits Re quested Visits Authorized [id number] 1 1 Encounter Details Date Type Department Care Team (Late st Contact Info) Description 03/24/2021 11:00 AM CDT Home Care Visit [facility] Home Care [facility] [address] [facility] [address] [place] [id number] Libby Syed RN [phone] (Work) SN OASIS START OF CARE Social History [...] on file Legal Sex Male 9:58 PM AUDIOVISUAL 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 No / Unsure 04/02/2021 1:29 PM CDT documented as of this encounter Last Filed Vital Signs Vital Sign Reading Time Taken Comments Blood Pressure 118/60 03/24/2021 12:19 PM CDT Pulse 82 03/24/2021 12:18 PM CDT Temperature 36.8 ??C (98.2 ??F) 03/24/2021 12:18 PM C DT Respiratory Rate 18 03/24/2021 12:18 PM CDT Oxygen Saturation 97% 03/24/2021 12:18 PM CDT room air Inhaled Oxygen Concentration - - Weight 73.5 kg (162 lb) 03/24/2021 12:18 PM CDT Height 170.2 cm (5' 7 ) 03/24/2021 12:18 PM CDT Body Mass Index 25.37 03/24/2021 12:18 PM CDT documented in this encounter Functional [...] Progress Notes * Susan Sanders MA - 03/24/2021 1:14 PM CDT Printed for provider to advise * Libby Leary RN - 03/24/2021 1:07 PM CDT Patient admitted to [facility] on March 18, 2021 with perforated diverticulum. Patient discharged home on March 23, 2021 with home health. Patient declined to have PT/OT services at this time. Skilled nurse to provide assessments, wound care, jitendra monitoring, ostomy education, education on medications, safety and disease process with skilled nurse frequency of 2wk4, 1wk4. Patient is scheduled to have cystogram on April 01 and follow up with Dr. Amador on April 02. Skilled nurse reviewed medications with patient and found discrepancy with Zinc Gluconate 50 mg daily, patient has Zinc Picolinate 15 mg available and states he has been taking this since last year. Please advise. Also, patient reports he is not taking Osteo Bi-Flex Joint Shield, is this to be taken? Please advise. Major medication interactions: Patient with history of allergy to Morphine with reaction of itching , and currently taking Hydrocodone-acetaminophen without symptoms. Skilled nurse instructed patient not to drink grapefruit juice as patient is taking Atorvastatin, patient verbalized understanding. Patient unable to use CPAP at this time, states he is needing a new prescription for hose and unsure if he needs to have a new study done. Please advise. Patient is being followed by Dr. Amador for ostomy, mullins and JITENDRA drain, may we take orders at thistime? Unable to assess wound upon admission, as no current wound orders on discharge orders, awaiting clarification on wound care orders for JITENDRA drain and surgical incision, with plan to assess and care for tomorrow along with Ostomy education. Any questions or concerns, you may reach me at [phone]. Thank you! documented in this encounter Plan of Treatment Upcoming Encounters Date Type Department Care Team (Late st Contact Info) Description 01/27/2025 7:00 AM CDT Office Visit [facility] Family [facility] Internal Medicine - [place] [address] [place] [address] [place] [address] [place] [address] 10/22/2025 9:15 AM AUDIOVISUAL TECH Office Visit [facility]-[address] [address] Mily Gan MD [address] [address] documented as of this encounter [...] -SN - OASIS Start of Care Discipline -Fdc Problems Problem Description Start Date Status Goals Interve ntions Fall Precautions Disciplines: Fdc Patient at risk for falls 03/24/2021 Active 1 goal linked to scheduled/document ed intervention 3 goal interventions scheduled/document ed in this visit Collaboration of Care Disciplines: Fdc Collaboration for safe care. 03/24/2021 Active 2 goals linked to scheduled/document ed interventions 2 problem interventions scheduled/document ed in this visit 5 goal interventions scheduled/document ed in this visit Ostomy Disciplines: Fdc Care related to Colostomy related to diagnosis of Perforated diverticulum. 03/24/2021 Active 1 goal linked to scheduled/document ed intervention 1 problem intervention scheduled/document ed in this visit 4 goal interventions scheduled/document ed in this visit Wound Management Disciplines: Fdc Skin integrity deficit related to: surgical wound wound. Location/site: Abdomen 03/24/2021 Active 1 goal linked to scheduled/document ed intervention 8 goal interventions scheduled/document ed in this visit Urinary Catheter Disciplines: Fdc Urinary catheter 03/24/2021 Active 1 goal linked to scheduled/document ed intervention 2 goal interventions scheduled/document ed in this visit Risk for Skin Breakdown Disciplines: Fdc Risk for skin breakdown 03/24/2021 Active 1 goal linked to scheduled/document ed intervention 1 goal intervention scheduled/document ed in this visit Depression Disciplines: Fdc Depression 03/24/2021 Active 1 goal linked to scheduled/document ed intervention 1 goal intervention scheduled/document ed in this visit Medications Disciplines: Fdc 03/24/2021 Active 1 goal linked to scheduled/document [...] May 22, 2021. Depression Progressing No Patient reports he was feeling a little depressed when I had the emergency surgery, but I'm good now . Patient verbalizes understanding of medication regimen Medications [...] for safe care. Completed Skilled nurse reviewed coverage, patient responsibility, and patient is aware and agreeable to plan. Plan Towards Discharge Description: Document Patient progress [...] nurse reviewed next skilled nurse visit for tomorrow for ongoing assessment, vs, ostomy education and ostomy change with [facility] and skilled nurse, patient agreeable and verbalized understanding. Instruct Description: [...] strategies to prevent infection: frequent/proper hand-washing techniques, [place] precautions, Standard precautions, avoid crowds and persons [...] complications Completed Skilled nurse instructed patient on draining JITENDRA drain and keeping a daily log, patient verbalized understanding. Instruct infection prevention Description: Instruct Patient and [...] needs met without signs/symptoms of complications Completed No wound care provided this visit and unable to assess as no wound care orders received upon admission. Skilled nurse received call back from Dr. Amador's medical secretary receptionist, Tyler with new wound care orders after visit and instructed to start wound care tomorrow at next scheduled skilled nurse visit. Skin Integrity Description: Instruct patient and caregiver [...] to contact physician, Dr. Federico Amador at [phone]. - Instruct Patient and on home management of urinary catheter including cleaning urinary meatus, signs/symptoms of infection, changing from night bag to leg bag. Problem:Urinary Catheter Goal:Patient's catheter remains patent without signs/symptoms of infection Completed Patient instructed in catheter cares. Patient verbalizes understanding of home management of urinary catheter and knowledgeable that catheter not to be replaced by anyone other than Dr. Amador at this time and to notify home health and/or Dr. Amador if any complications. Infection Prevention Description: Instruct Patient and in strategies to prevent urinary tract infection and how to recognize signs and symptoms of infection and when to notify home care agency, and/or physician. Problem:Urinary Catheter Goal:Patient's catheter remains patent without signs/symptoms of infection Completed Patient and instructed on frequent/proper hand-washing techniques, [place] precautions, Standard precautions, avoid crowds and persons [...] development or worsening of pressure injuries Completed Skilled nurse instructed on repositioning often, every hour while sitting in chair to prevent pressure ulcers, patient verbalized understanding. Assess depression Description: Assess patient for signs [...] and compliance reviewed with Patient. Patient verbalizes understanding. Instruct High-Risk Meds Problem:Medications Goal:Patient verbalizes understanding of medication regimen Completed documented in this encounter Care Teams Fish Warden Relationship Specialty Start Date End Date Lorie Chan MD PCP - General INTERNAL MEDICINE 01/15/20 02/09/23 Moraima Toledo, RN [address] [place], [place] [address] [employer] Mounter (Ambulatory) REGISTERED NURSE 03/19/21 documented as of this encounter
--- OUTSIDE RECORDS SUMMARY | 2024-11-02 08:12 | XMS_ITS | Encounter Summary ---
Author Organization [facility] Address [address] [place] [address]. [place] [address] [place] [address] Care Team Providers Care Senior Cobol Developer Name Role Phone Jeremy Castanon MD Primary Care Provider [phone] Moraima Toledo RN Unavailable [phone] Reason for Visit * Auth/Cert Specialty Diagnoses / Procedures Referred By Shelby t Referred To Contact Diagnoses Perforated diverticulum Perforated diverticulum Procedures INP Referral ID Status Reason Start Date Expiration Date Visits Re quested Visits Authorized [id number] 1 1 Encounter Details Date Type Department Care Team (Late st Contact Info) Description 03/18/2021 1:45 PM CDT - 03/23/2021 1:00 PM CDT Hospital Encounter [facility] Medical/Surgical [address] [place] [phone] Lita Hu MD [facility] [address] [phone] (Work) Sean Marquez APRN [address] [place] [address] [phone] (Work) Discharge Disposition: Home with Home Health Care Social History Tobacco Use Types Packs/Day Years Used Date Smoking Tobacco: Every Day Cigarettes Smokeless Tobacco: Never Tobacco Cessation:Ready to Q uit: No; Counseling Given: Yes Alcohol Use Standard Drinks/Week Comments Yes 3.3 [...] on file Legal Sex Male 9:58 PM [employer]PER[employer] Gender Identity Not on file Sexual Orientation Not on file COVID-19 Exposure Response Date Recorded In the last month, have you been in contact with someone who was confirmed or suspected to have Coronavirus / COVID-19? No / Unsure 03/18/2021 8:22 PM CDT documented as of this encounter Last Filed Vital Signs Vital Sign Reading Time Taken Comments Blood Pressure 143/80 03/23/2021 4:55 AM CDT Pulse 80 03/23/2021 4:55 AM CDT Temperature 37.2 ??C (98.9 ??F) 03/23/2021 4:55 AM CD T Respiratory Rate 16 03/23/2021 4:55 AM CDT Oxygen Saturation 94% 03/23/2021 4:55 AM CDT Inhaled Oxygen Concentration - - Weight 73.5 kg (162 lb 0.6 oz) 03/22/2021 5:00 A M CDT Height 167.6 cm (5' 6 ) 03/18/2021 9:00 PM CDT Body Mass Index 26.15 03/18/2021 9:00 PM CDT documented in this encounter Functional Status * Question Answer Date of Assessment Author Status Do you have serious difficulty walking or climbing stairs? No 03/18/2021 8:35 PM CDT Polly Oliveira RN Active * Question Answer Date of Assessment Author Status Do you have difficulty dressing or bathing? No 03/18/2021 8:35 PM CDT Adonis Oliveira RN Active Because of a physical, mental, or emotional condition, do you have difficulty doing errands alone such as visiting a doctor's office or shopping? No 03/18/2021 8:35 PM Polly Clemons RN Active * RETIRED Are you deaf [...] PM AYANNAT Polly Oliveira RN Active * Do you [...] or making decisions? No 03/18/2021 8:35 PM Polly Clemons RN Active * Because of a physical, mental, or emotional condition, do you have serious difficulty concentrating, remembering, or making decisions? Answer Entry Date Author Status No 03/18/2021 8:35 PM Polly Clemons RN Active documented in this encounter Discharge Summaries * Sean Marquez APRN - 03/23/2021 10:56 AM CDT Hospitalist Discharge Summary Patient ID: Mandie Cotter. male. 1955. Admit date: 03/18/2021 1:45 PM Discharge date and time: 03/23/21 Admitting Physician: Lita Hu MD Attending Physician: Sean Marquez APRN Primary Care Physician: JEREMY CASTANON MD Discharge Physician: SEAN MARQUEZ APRN [facility] Diagnosis: Perforated diverticulum Admission Condition: stable Discharged Condition: Good Homebound due to: Physical deconditioning as well as Mullins catheter, JITENDRA drain, and colostomy teaching Primary Diagnoses: Perforated diverticulum Code Status: Full Code Indication for Admission: No chief complaint on file. Readmission/Mortality Score at discharge: Low 0-28, Medium 29-58, High >59 LACE+ Score Readmission Score: 50 Male Patient: 3 Urgent Admission: Discharge Institution: Length of Stay: 6 Alternative Level of Care Status: 0 ED Visits in Previous 6 Months: 3 Elective Admission in Previous Year: 6 Comorbidity Score (by age & number of urgent admissions): 32 Findings that require further workup: None Consults: general surgery Significant Diagnostic Studies: No results found for this or any previous visit (from the past 24 hour(s)). Radiology Reports : CT ABD+PEL W IV CON ONLY Addendum Date: 03/18/2021 ADDENDUM: I reviewed the findings with Dr. Barajas at 1158 hours. Referred By: LAURI ALANIS Interpreted By: Norman Smallwood, 112:00 PM Result Date: 03/18/2021 IMAGING STUDIES: CT ABD+PEL W CON [...] control with radiation dose reduction. CHEST: No acuteinfiltrate or consolidation in the lung bases. Minimal [...] to perforated diverticulum. No appendicitis. MUSCULOSKELETAL: Degenerative changesspine, pelvis, and hips. Spinal degenerative changes greatest at L5-S1 level. IMPRESSION: Abdominal free air consistent with bowel perforation. Approximately 3 cm x 3.7 cm densestool ball in the sigmoid colon near the area of inflammation and air. Several sigmoid diverticula also in the region suggesting the source may be perforated diverticulum. Air tracking in the mesentery to the upper abdomen including subdiaphragmatic space. I discussed findings with Lauri Alnais in the emergency department at 1120 hours. Referred By: LAURI ALANIS Interpreted By: Norman Smallwood, 03/18/2021 11:08 AM XR CHEST PORTABLE Result Date: 03/19/2021 EXAMINATION: CHEST X-RAY ONE VIEW EXAM TIME: 0159 hours. COMPARISON: None available HISTORY: NG tube placement. FINDINGS: A single portable AP view of the chest is submitted for evaluation. Endogastric tube placement with tip and side port within the proximal stomach. The heart is within normal limits in size. Pulmonary vascularity is within normal limits. The lungs are well expanded without focal airspace consolidation. No pleural effusions. No pneumothorax. IMPRESSION: No acute cardiopulmonary disease. Endogastric tube placement, as detailed. Referred By: Interpreted By: Mahi Ortez MD, 03/19/2021 1:21 AM Discharge Exam: Filed Vitals: 03/22/21 0736 03/22/21 1328 03/22/21 2030 03/23/21 0455 BP: (!) 155/65 142/76 143/80 Pulse: 75 75 80 Resp: 16 20 16 Temp: 97 ??F (36.1 ??C) 98.2 ??F (36.8 ??C) 98.9 ??F (37.2 ??C) TempSrc: Temporal Oral Oral SpO2: 97% 98% 94% Weight: Height: Physical Exam: GENERAL:??No acute distress, well developed, and alert HEENT:?Mucous membranes moist, neck supple, trachea midline RESPIRATORY:??Respirations even and unlabored, clear breath sounds, no wheezes, mild crackles bilateral bases CARDIAC:??Regular rate and rhythm, no murmur, gallops, or JVD, no peripheral edema GI:??No tenderness today, nondistended, bowel sounds hypoactive, JITENDRA in place, left lower quadrant ostomy bag with serosanguineous thin clear liquid : No suprapubic tenderness upon palpation, no CVAT??Mullins catheter in place MUSC:??ROM grossly intact NEURO:??Alert and oriented, no gross deficit, cranial nerves intact, PERRLA SKIN:??Incisions clean dry intact, abdominal binder in place LYMPH: No obvious lymphadenopathy?? PSYCH: ??Alert, appropriate, normal behavior, normal judgement and thought content Discharge Medications: Medication List START taking these medications amoxicillin-clavulanate 875-125 MG tablet Commonly known as: AUGMENTIN Take 1 tablet (875 mg total) by mouth 2 (two) times daily for 7 days. HYDROcodone-acetaminophen 5-325 MG tablet Commonly known as: NORCO Take 1 tablet by mouth every 6 (six) hours as needed for Pain. Indications: Acute Pain < 7 Day Supply senna-docusate 8.6-50 MG tablet Commonly known as: SENOKOT-S Take 1 tablet by mouth daily as needed for Constipation. CONTINUE taking these medications aspirin 81 MG chewable tablet atorvastatin 40 MG tablet Commonly known as: LIPITOR Take 1 tablet (40 mg total) by mouth nightly at bedtime. CPAP SUPPLIES 1 Units by Does not apply route nightly at bedtime. Mask, tubing & filters OSTEO BI-FLEX JOINT SHIELD OR vitamin C 100 MG tablet Vitamin D 50 MCG (2000 UT) Caps Vitamin E 400 units Tabs zinc gluconate 50 MG Tabs STOP taking these medications meloxicam 15 MG tablet Commonly known as: MOBANNETTA Where to Get Your Medications These medications were sent to [id number] - [place], [place] - [address] [place] [address], [place] [address] ?? amoxicillin-clavulanate 875-125 MG tablet ?? HYDROcodone-acetaminophen 5-325 MG tablet ?? senna-docusate 8.6-50 MG tablet Disposition: Home with Home Health Home Health / PP Statement: I acknowledge that I had a Face-to Face Encounter with the patient on 03/23/2021 and that the content outlined in this discharge summary serves to provide documentation of the clinical findings of theencounter and reason for homecare. The patient will be followed post hospitalization by the patient???s physician, and a copy of this discharge summary has been provided to the PCP. Discharge Plan: Discharge to home health services for the following skilled services: (examples or possibly selections could include): assisted to: Perform skilled assessment, medical condition education related to the above clinical and medical condition.Therapy assessment and treatment if appropriate Patient Instructions: Activity: activity as tolerated Diet: Diet low fiber Appropriate Wound Care: as directed Therapy Ordered: Physical Therapy: Evaluate and Treat Occupational Therapy: Evaluate and Treat assisted: Evaluate and treat Follow-up appointments: PCP in a week, general surgery in a week Hospital Course: Mandie Cotter is a 65-year-old male that presented to the ED at [facility] for complaints of severe lower abdominal/suprapubic abdominal pain associated with subjective fevers and chills. ??He also stated that he did have associated urinary frequency but denied any particles in the urine. ??He denied any change in bowel movements. ??He stated that the pain was so severe but relieved with pain medication twice in the emergency department at [facility]. He believes his last colonoscopy was close to 10 years ago. ??He is unaware of a history of diverticulosis. ??He has never had any abdominal surgeries. ??He has had bilateral inguinal hernia repairs. Patient is improved over the course ad mission. Tolerating surgical site well with no complication. Patient has had no further nausea/vomiting. Pain is well controlled. Balance excreted into patient's ostomy bag, therefore, can discharge at this time and follow-up with PCP in a week. Follow-up general surgery in a week. Assessment/Plan: Perforated sigmoid diverticulitis As noted on imaging??with free air Continue IV antibiotics with Zosyn Watch for improvement in abdominal pain Continue to monitor bowel movements Monitor for change in condition Consider change in antibiotics or adjunct therapy NPO, will advance diet slowly per general surgery Pain control and antiemetics If patient requires longer than 3 or 4 days of n.p.o. status, consider PPN/TPN 03/20 pain controlled, positive flatus, no BM, still with high NG output. ??WBC trending up. ??Continue n.p.o. 03/21 pain controlled, having flatus, liquid in his ostomy bag but no real stool, NG output trendingdown, WBC trending down. ??Continue n.p.o. for now, advance diet when having more stool output. ??encourage ambulation 03/22: No pain, continues to pass flatus and having small stool in ostomy bag. NG remains in place, clamped for 24 hours, wait for general surgery to advance diet. Encouraged ongoing ambulation 03/23: Tolerating advancement diet. DC IV fluids, can discharge pending general surgery final clearance. Ostomy teaching continue at home with home addition, patient to continue with PT/OT. JITENDRA drain likely to be removed as outpatient pending general surgery evaluation. In addition, Mullins catheter remain for 2 total weeks, at which point, general surgery will remove. ?? HLD Continue statin ?? RANDY History of Monitor for drop in saturations and provide supplemental O2 as needed Consider CPAP/BIPAP if appropriate ?? Anemia Likely due to acute blood loss??or dilutional changes Hemoglobin remain stables Monitor trend of H&H Consider blood transfusion if warranted Make adjustments as necessary Started PPI 03/19 due to some bloody appearing NG output, monitor closely Hemoglobin stable, NG output no longer bloody ?? Nicotine dependence Patient is a daily smoker Monitor for signs of withdrawal Nicotine patch daily or as needed ?? Hypokalemia Potassium low Replete and monitor ?? VTE Prophylaxis Heparin SQ ? CODE STATUS:??Full ADMISSION STATUS:??Inpatient During my evaluation and management, personal protective equipment was used and reasonable measureswere taken to reduce spread based on the current recommendations from the CDC and WHO Time Spent on Discharge: Greater than 30 mins Signed: SEAN MARQUEZ APRN 03/23/2021 10:56 AM Cosigned by Addison Barkley MD at 03/23/2021 3:50 PM CDT documented in this encounter Discharge Instructions * Discharge Instructions* Violet Rinaldi RN - 03/23/2021 10:53 AM CDT Images from the original note were not included. Patient Education Perforation of the GI Tract Discharge Instructions About this topic A perforation is another name for a hole. Your GI tract is also called your gastrointestinal tract.This tract includes your food pipe or esophagus, stomach, and bowels. When you have a hole in your GI tract, the food, digestive juices, and intestinal contents can leak out. These fluids can be veryirritating and have bacteria in them. If this condition is not treated, you will develop a very badinfection. This is a serious problem that can even cause . What care is needed at home? ?? Ask your doctor what you need to do when you go home. Make sure you ask questions if you do not understand what the doctor says. This way you will know what you need to do. ?? Take your drugs as ordered by your doctor. ?? If you had surgery or are going home with an ostomy, talk to your doctor about: ? How to care for your cut site and bandage ? What supplies you will need ? If you will need home visits from a nurse ? How to care for your ostomy ? When you may take a bath or shower ?? Be sure to wash your hands before and after touching your wound, dressing, or ostomy. ?? If you are not able to eat for a while after surgery, you will need some other way to give your body nutrition. You may have a small tube in your nose or a temporary IV in your arm. Talk to your doctor about: ? How to care for the tube or IV ? If you will need home visits from a nurse What follow-up care is needed? Your doctor may ask you to make visits to the office to check on your progress. Be sure to keep these visits. You also may need to work with a dietitian in case you need a special diet. What lifestyle changes are needed? ?? Stop smoking if you are a smoker. ?? Talk to your doctor if you take steroids or drugs like ibuprofen (Advil, Motrin) which are NSAIDs (non-steroidal anti-inflammatory drugs). These can raise the chance of GI bleeding. Ask if there are other drugs you can take. What drugs may be needed? The doctor may order drugs to: ?? Help with pain ?? Fight an infection ?? Lower fever Will physical activity be limited? Physical activities may be limited if you have pain. Talk to your doctor about the right amount of activity for you. Take short walks each day to help prevent blood clots. Ask when you will be able to return to school or work. What changes to diet are needed? ?? Ask your doctor or dietitian for a diet plan. ?? Your doctor may suggest a liquid or soft diet until your bowel is ready for normal food. ?? Drink 6 to 8 glasses of water each day. ?? Avoid beer, wine, and mixed drinks (alcohol) and caffeine. What problems could happen? ?? Bleeding ?? Infection ?? Pain ?? Blockage in your GI tract ?? Symptoms could happen again When do I need to call the doctor? ?? Signs of infection. These include a fever of 100.4??F (38??C) or higher, chills, increasing belly pain, pain with passing urine, mouth sores, wound that will not heal. ?? Signs of wound infection if you had surgery. These include swelling, redness, warmth around the wound; too much pain when touched; yellowish, greenish, or bloody discharge; foul smell coming from the cut site; cut site opens up. ?? Problems with your stool like loose stools, hard stools, or blood in your stool Teach Back: Helping You Understand The Teach Back Method helps you understand the information we are giving you. After you talk with the staff, tell them in your own words what you learned. This helps to make sure the staff has described each thing clearly. It also helps to explain things that may have been confusing. Before going home, make sure you can do these: ?? I can tell you about my condition. ?? I can tell you what changes I need to make with my diet or drugs. ?? I can tell you how to care for my cut site and ostomy, if I have them. ?? I can tell you what I will do if I have a fever, chills, loose stools, or blood in my stool. Last Reviewed Date 2019-08-15 Consumer Information Use and Disclaimer This information [...] right for you. Copyright Copyright ?? 2020 [employer] and its affiliates and/or licensors. All rights reserved. Patient Education How to Care for Your Ostomy, Adult About this topic An ostomy is an opening from the belly to the outside of the body. It lets you get rid of the body's waste products. The opening is called a stoma. If the opening is coming from the small bowel, it is an ileostomy. If it is coming from the large bowel, it is a colostomy. Sometimes, the opening comes from the bladder and then it is a urostomy. A special pouch attaches over the opening to catch body waste. This procedure is done to treat: ?? Blockage in the bowel and removal of part of the bowel ?? Cancer ?? Crohn's disease ?? Diverticulitis ?? Injury that goes through the bowel ?? Kidney failure ?? Removal of the bladder for reasons other than cancer, such as defects ?? Ulcerative colitis You may have an ostomy for just a short time. This is often needed when the bowel or bladder needs to heal. If part of the bowel or bladder was taken out or there is a serious disease, the ostomy maybe long-lasting. Having an ostomy may be a challenge to accept. It may be hard to deal with. Learn how to take care of your ostomy. This may help you adjust to your condition. Then, you will be able to get back to a more normal life. Talk with a family member, friend, or counselor if you feel very sad about your ostomy. General Normally, your urine or stool will empty directly into a small plastic pouch that is worn outside your body. The pouch protects you from odor and wetness. You will need to learn how to care for the pouch and your skin. Taking Care of the Pouch Empty the Pouch ?? Pour out the contents of the pouch when it is 1/3 to 1/2 full. Avoid emptying the pouch when it is near full. ?? Wash your hands before and after touching your pouch. ?? Sit on the toilet and place the pouch between your legs. Remove the opening clip of the pouch and empty the body waste into the toilet. Sometimes, it is easier to sit facing the back of the toilet. ?? Clean the end of the pouch with a moist paper towel or baby wipe. You may also rinse the pouch with water and drain the water. Close the end of the pouch by replacing the clamp. ?? You may want to empty your pouch first thing in the morning. Change the Pouch ?? You will need to change the entire pouch system every 3 to 5 days. You may need to change it more often if there is leakage around the site. ?? It is often easier to change your pouch first thing in the morning, before you eat or drink, so your bowels have not yet begun to move. ?? Gather all your supplies and wash your hands. ?? Gently take off the old pouch and any protective barriers. ?? Look at the stoma. It should be red and moist looking. Gently clean the skin around it with warmwater and pat dry. ?? The new barrier will not stick if your skin is moist. If needed, wipe with a skin prep pad or apply a small amount of skin barrier powder. ?? Use your measuring grid to measure the shape and size of the stoma. This will be used to alejandro the opening into the pouch barrier. The size should be just where your skin and stoma meet. ?? Trace the correct size opening on the pouch barrier. Use scissors to cut an opening in the pouchbarrier. Take extra care not to cut the pouch. ?? Center the new opening of the pouch over the stoma. Make sure it fits well on all edges. Trim the barrier if needed. ?? Remove the protective backing. Place the barrier on the skin around the stoma and press down for30 to 60 seconds with your hand or a warm, dry towel. You may want to save the protective backing as a template for the next pouch change. ?? Close the bottom of the drainage bag with a clamp. Take Care of Your Skin ?? Wash your hands before and after touching the stoma. Clean the stoma and skin around it with warm water. Do not use products with oil or perfume to clean the stoma. ?? It is normal for the stoma to bleed slightly when you clean it. ?? If the skin around the stoma becomes sore, remove the pouch and clean the skin. ?? Dry the stoma before replacing the pouch. ?? Your doctor may suggest other creams, powders, or different bags if you are having problems withleaks. Will physical activity be limited? Exercise regularly. Talk to your doctor about the right amount of activity for you. What changes to diet are needed? ?? Once your doctor says it is OK, you may go back to eating the foods you like. Foods that will help soften your stool, like fresh fruits and vegetables, will continue to do the same. ?? Foods you had problems with before will still cause you problems. For example, foods like broccoli, cabbage, or beans that caused gas will still cause gas. You may need to let the air out of your ostomy pouch so it does not fill with too much air. ?? Drink 6 to 8 glasses of water each day to prevent too much fluid loss. What foods are good to eat? Eat soft foods that are easy to digest like: ?? Boiled eggs ?? Yogurt ?? Cheese ?? Soft crackers ?? Cooked vegetables and fruits ?? Oatmeal ?? Whole-grain breads ?? Cereals Your doctor may want you to eat foods with a lot of fiber to help prevent hard stools, or trouble making bowel movements. Examples of foods with a lot of fiber are: ?? Baked potato ?? Bran muffins ?? Brown rice ?? Oatmeal ?? Prunes What foods should be limited or avoided? These foods may cause blockages if they are not chewed well: ?? Nuts ?? Apples ?? Grapes Limit or avoid drinking beverages with caffeine. What problems could happen? ?? Skin irritation ?? Hernia ?? Crystal formation around the stoma ?? Bleeding ?? Infection ?? Ostomy suddenly stops working or becomes blocked When do I need to call the doctor? ?? Signs of infection. These include a fever of 100.4??F (38??C) or higher, chills, pain or numbness, redness and pus at the wound site. ?? Belly pain that keeps you from eating or sleeping ?? Change in skin color of the stoma ?? Rash or sores around the stoma ?? Stoma leaks more than usual ?? Very hard stools ?? Bowel movements suddenly stop ?? Black, tarry, or bloody stools ?? No urine or stool coming out ?? You are not feeling better in 2 to 3 days or you are feeling worse Helpful tips ?? Join support groups to get to know other people who have coped with the condition. ?? If you are going to travel, bring extra supplies to avoid problems. Teach Back: Helping You Understand The Teach Back Method helps you understand the information we are giving you. After you talk with the staff, tell them in your own words what you learned. This helps to make sure the staff has described each thing clearly. It also helps to explain things that may have been confusing. Before going home, make sure you can do these: ?? I can tell you about my condition. ?? I can tell you how I will take care of my ostomy. ?? I can tell you what I will do if I have a rash or sores around my stoma. Where can I learn more? [employer] https://www.cancer.org/treatment/tzyygkfoqh-jxg-tglt-effects/treatment-types/christa marcia/ostomies/ileostomy/management.html Wound Ostomy [employer] Continence [employer] https://www.ostomy.org/wp-content/uploads//wocn_basic_ostomy_skin_care_20 18.pdf Last Reviewed Date 2019 Consumer Information Use and Disclaimer This information [...] right for you. Copyright Copyright ?? 2020 [employer] and its affiliates and/or licensors. All rights reserved. * Attachments The following attachments cannot be sent through Care Everywhere. * How to Care for Your Mullins Catheter, Male ([place]) * Easton-Srinivasan Drain ([place]uneian) * Low Fiber Diet ([place]ian) * How to Keep Track of Your Drainage ([place]) * Hydrocodone and Acetaminophen, ADULT ([place]) * Senna, ADULT ([place]) * Amoxicillin and Clavulanate, ADULT ([place]) documented in this encounter Medications at Time [...] by mouth daily. Indications: Nutritional Support 1 amoxicillin-clavula devonte 875-125 MG tablet [The details of the medication are not available because there are pending changes by a home health clinician.] 14 tablet 1 03/30/20 21 atorvastatin 40 MG tabletIndications:M ixed hyperlipidemia [The [...] Day Supply 20 tablet 1 09/22/20 21 Misc Natural Products (OSTEO BI-FLEX JOINT SHIELD OR) Take 1 tablet by mouth 2 (two) times daily. 03/24/20 21 senna-docusate 8.6-50 MG tablet [The details of the medication are not available because there are pending changes by a home health clinician.] 10 tablet 1 04/07/20 21 documented as of this encounter Progress Notes * Susan Ohara RN - 03/23/2021 12:17 PM CDTSummary: 2nd im 2nd im signed and placed in pt's paper chart. * Margarita Sloan MD - 03/23/2021 11:17 AM CDT Mandie Cotter 03/23/2021 Subjective Patient without complaints. Tolerating a surgical soft diet without any nausea, vomiting, abdominalpain, distention, fevers or chills. Stoma is viable and ostomy has output both air and a good amount of stool. Good clear urine output in Mullins catheter. Review of Systems Constitutional: Negative. HENT: Negative. Eyes: Negative. Respiratory: Negative. Cardiovascular: Negative. Gastrointestinal: Negative. Endocrine: Negative. Genitourinary: Negative. Musculoskeletal: Negative. Skin: Negative. Allergic/Immunologic: Negative. Neurological: Negative. Hematological: Negative. Psychiatric/Behavioral: Negative. Objective Vitals: Vital 24 Hour Range Most Recent Value Temperature Temp Min: 97 ??F (36.1 ??C) Max: 98.9 ??F (37.2 ??C) 98.9 ??F (37.2 ??C) Pulse Pulse Min: 75 Max: 80 80 Respiratory Resp Min: 16 Max: 20 16 Blood Pressure BP Min: 142/76 Max: 155/65 143/80 Pulse Oximetry SpO2 Min: 94 % Max: 98 % 94 % O2 No data recorded Intake/Output Summary (Last 24 hours) at 03/23/2021 1118 Last data filed at 03/23/2021 0938 Gross per 24 hour Intake 4075.7 ml Output 4000 ml Net 75.7 ml Physical Exam Constitutional: He is oriented to person, place, and time. He appears well- developed and well-nourished. No distress. HENT: Head: Normocephalic and atraumatic. Right Ear: External ear normal. Left Ear: External ear normal. Nose: Nose normal. Mouth/Throat: Oropharynx is clear and moist. Eyes: Right eye exhibits no discharge. Left eye exhibits no discharge. No scleral icterus. Cardiovascular: Normal rate, regular rhythm, normal heart sounds and intact distal pulses. Exam reveals no gallop and no friction rub. No murmur heard. Pulmonary/Chest: Effort normal and breath sounds normal. No respiratory distress. He has no wheezes. He has no rales. He exhibits no tenderness. Abdominal: Soft. Bowel sounds are normal. He exhibits no distension and no mass. There is no abdominal tenderness. There is no rebound and no guarding. Incisions are clean dry and intact without any evidence of infection. Stoma is viable and ostomy has formed stool and air. Musculoskeletal: General: Normal range of motion. Cervical back: Normal range of motion and neck supple. Neurological: He is alert and oriented to person, place, and time. Skin: Skin is warm and dry. He is not diaphoretic. Psychiatric: He has a normal mood and affect. His behavior is normal. Nursing note and vitals reviewed. Labs: Recent Labs Lab 03/18/21 0950 03/19/21 0545 03/20/21 0515 03/21/21 0255 03/22/21 0500 WBC 13.7* 9.8 11.2* 8.6 8.4 RBC 4.81 3.77* 3.44* 3.58* 3.87* HGB 15.7 12.0* 11.1* 11.6* 12.4* HCT 45.7 36.5* 34.1* 35.3* 37.3* NA 137 137 142 140 139 K 4.0 4.1 3.7 3.1* 3.5 CL 100 104 108 106 101 CO2 28.1 25.3 29.1 28.0 28.3 AGAP 8.9 7.7 4.9* 6.0 9.7 BUN 19* 16 17 9 6* CR 0.85 0.80 0.80 0.70 0.80 BUNCREATININ 22.4 20.0 21.2 12.9 7.5 GFRNON >90 >90 >90 >90 >90 GFR >90 >90 >90 >90 >90 GLU 122* 153* 213* 122* 97 CA 8.9 7.9* 7.6* 7.7* 8.6 TP 8.4* 6.6 6.4 -- -- ALB 4.3 3.0* 2.7* -- -- TBIL 1.7* 1.3* 0.8 -- -- ALKP 50 31* 33* -- -- AST 19 30 36 -- -- ALT 35 32 33 -- -- LIPASE 72* -- -- -- -- Pertinent images and labs reviewed Radiology: Radiology Results (Last 48 hours) None Assessment: Mandie Cotter is a 65-year-old male status post sigmoidectomy with end colostomy (Hudson's procedure) for perforated sigmoid diverticulitis with free air. Doing well. Plan: Okay to discharge home. [place] filled cystogram next and follow- up with me in the office next . Postprocedure instructions provided. Ostomy nurse saw him yesterday and provided him with instructions as well and supplies. Margarita Sloan MD 03/23/2021 * Violet Rinaldi RN - 03/23/2021 10:15 AM CDT Problem: Discharge Planning Goal: Knowledge of discharge instructions Outcome: Adequate for Discharge Problem: Fluid Volume - Imbalance Goal: Absence of imbalanced fluid volume signs and symptoms Outcome: Adequate for Discharge Problem: Nausea/Vomiting Goal: Absence of nausea/vomiting Outcome: Adequate for Discharge Goal: Electrolytes within specified parameters Outcome: Adequate for Discharge Problem: Nutrition Deficit Goal: Adequate nutritional intake Outcome: Adequate for Discharge * Ruma Treviño RN - 03/23/2021 5:51 AM CDT Patient tolerating full liquid diet, will advance to soft diet today. Up independently in the room.Small bowel movement present in ostomy. expected to be discharged today. Problem: Discharge Planning Goal: Knowledge of discharge instructions 03/23/2021 0551 by Ruma Treviño RN Outcome: Progressing 03/23/2021 0000 by Ruma Treviño RN Outcome: Progressing Problem: Fluid Volume - Imbalance Goal: Absence of imbalanced fluid volume signs and symptoms 03/23/2021 0551 by Ruma Treviño RN Outcome: Progressing 03/23/2021 0000 by Ruma Treviño RN Outcome: Progressing Problem: Nausea/Vomiting Goal: Absence of nausea/vomiting 03/23/2021 0551 by Ruma Treviño RN Outcome: Progressing 03/23/2021 0000 by Ruam Treviño RN Outcome: Progressing Goal: Electrolytes within specified parameters 03/23/2021 0551 by Ruma Treviño RN Outcome: Progressing 03/23/2021 0000 by Ruma Treviño RN Outcome: Progressing Problem: Nutrition Deficit Goal: Adequate nutritional intake 03/23/2021 0551 by Ruma Treviño RN Outcome: Progressing 03/23/2021 0000 by Ruma Treviño RN Outcome: Progressing * Ruma Treviño RN - 03/23/2021 12:01 AM CDT Problem: Discharge Planning Goal: Knowledge of discharge instructions Outcome: Progressing Problem: Fluid Volume - Imbalance Goal: Absence of imbalanced fluid volume signs and symptoms Outcome: Progressing Problem: Nausea/Vomiting Goal: Absence of nausea/vomiting Outcome: Progressing Goal: Electrolytes within specified parameters Outcome: Progressing Problem: Nutrition Deficit Goal: Adequate nutritional intake Outcome: Progressing * Maria Fernanda Jorge RN - 03/22/2021 3:30 PM CDTSummary: education Patient and in the room reviewed ostomy teaching diet, stoma care, medication, constipation , diarrhea, etc.. education packet left with patient. Appliance changed instructed how to measurestoma cut wafer to fit and apply new appliance Verbalized understanding [facility] homehealth will follow. Phone number for the clinic left with patient and . Maria Fernanda Jorge * Luz Cruz LCSW - 03/22/2021 1:55 PM CDT SW met with patient and patient's who was at bedside SWCM introduced self and purpose for social service intervention ;discharge plan evaluation . Patient and both participated, both are alert,oriented, no cognitive deficit noted . Both verbalize good understanding of discharge needs. Patient is independent with transfers and ambulation . is primary source of support . Patient first choice and preference and goal is to return home with self care and support from wifeand inform [facility] Home Care is their home health preference. Referral completed to [facility] Home Care . Ostomy /wound care nurse will be meeting with patient today . [facility] to continue to follow. * Violet Rinaldi RN - 03/22/2021 1:50 PM CDT Problem: Discharge Planning Goal: Knowledge of discharge instructions Outcome: Progressing Problem: Fluid Volume - Imbalance Goal: Absence of imbalanced fluid volume signs and symptoms Outcome: Progressing Problem: Nausea/Vomiting Goal: Absence of nausea/vomiting Outcome: Progressing Goal: Electrolytes within specified parameters Outcome: Progressing Problem: Nutrition Deficit Goal: Adequate nutritional intake Outcome: Progressing * Margarita Sloan MD - 03/22/2021 10:21 AM CDT Mandie Cotter 03/22/2021 Subjective Postop day 4 status post sigmoidectomy with end colostomy (Hudson's) for perforated sigmoid diverticulitis with free air. He is doing well. NG tube has been clamped since yesterday and he is tolerating sips of clears. He denies any nausea, vomiting, abdominal pain, distention. There is flatus and stool in the ostomy. WBC within normal limits. Afebrile, vital signs within normal limits. Review of Systems Constitutional: Negative. HENT: Negative. Eyes: Negative. Respiratory: Negative. Cardiovascular: Negative. Gastrointestinal: Negative. Endocrine: Negative. Genitourinary: Negative. Musculoskeletal: Negative. Skin: Negative. Allergic/Immunologic: Negative. Neurological: Negative. Hematological: Negative. Psychiatric/Behavioral: Negative. Objective Vitals: Vital 24 Hour Range Most Recent Value Temperature Temp Min: 97.2 ??F (36.2 ??C) Max: 99.3 ??F (37.4 ??C) 98.7 ??F (37.1 ??C) Pulse Pulse Min: 64 Max: 82 64 Respiratory Resp Min: 18 Max: 20 18 Blood Pressure BP Min: 133/78 Max: 165/88 133/78 Pulse Oximetry SpO2 Min: 93 % Max: 98 % 97 % O2 O2 Flow Rate (L/min) Av.7 L/min Min: 1 L/min Min taken time: 03/22/21 0736 Max: 2 L/min Max taken time: 03/22/21 0510 Intake/Output Summary (Last 24 hours) at 03/22/2021 1022 Last data filed at 03/22/2021 0800 Gross per 24 hour Intake 8235.8 ml Output 5425 ml Net 2810.8 ml Physical Exam Constitutional: He is oriented to person, place, and time. He appears well- developed and well-nourished. No distress. HENT: Head: Normocephalic and atraumatic. Right Ear: External ear normal. Left Ear: External ear normal. Nose: Nose normal. Mouth/Throat: Oropharynx is clear and moist. Cardiovascular: Normal rate, regular rhythm, normal heart sounds and intact distal pulses. Exam reveals no gallop and no friction rub. No murmur heard. Pulmonary/Chest: Effort normal and breath sounds normal. No respiratory distress. He has no wheezes. He exhibits no tenderness. Abdominal: Soft. Bowel sounds are normal. He exhibits no distension and no mass. There is no abdominal tenderness. There is no rebound and no guarding. Abdomen is soft, nondistended, nontender, Briana VAC in place, ostomy with a good amount of formed stool and gas. Easton-Srinivasan drain with a small amount of serosanguineous output. Mullins with good amount of clear urine. Musculoskeletal: General: Normal range of motion. Cervical back: Normal range of motion and neck supple. Neurological: He is alert and oriented to person, place, and time. Skin: Skin is warm and dry. He is not diaphoretic. Psychiatric: He has a normal mood and affect. His behavior is normal. Nursing note reviewed. Labs: Recent Labs Lab 03/18/21 0950 03/19/21 0545 03/20/21 0515 03/21/21 0255 03/22/21 0500 WBC 13.7* 9.8 11.2* 8.6 8.4 RBC 4.81 3.77* 3.44* 3.58* 3.87* HGB 15.7 12.0* 11.1* 11.6* 12.4* HCT 45.7 36.5* 34.1* 35.3* 37.3* NA 137 137 142 140 139 K 4.0 4.1 3.7 3.1* 3.5 CL 100 104 108 106 101 CO2 28.1 25.3 29.1 28.0 28.3 AGAP 8.9 7.7 4.9* 6.0 9.7 BUN 19* 16 17 9 6* CR 0.85 0.80 0.80 0.70 0.80 BUNCREATININ 22.4 20.0 21.2 12.9 7.5 GFRNON >90 >90 >90 >90 >90 GFR >90 >90 >90 >90 >90 GLU 122* 153* 213* 122* 97 CA 8.9 7.9* 7.6* 7.7* 8.6 TP 8.4* 6.6 6.4 -- -- ALB 4.3 3.0* 2.7* -- -- TBIL 1.7* 1.3* 0.8 -- -- ALKP 50 31* 33* -- -- AST 19 30 36 -- -- ALT 35 32 33 -- -- LIPASE 72* -- -- -- -- Pertinent images and labs reviewed Radiology: Radiology Results (Last 48 hours) None Assessment: Mandie Cotter is a 65-year-old male postop day 4 status post Hudson's procedure forperforated diverticulitis with free air. Plan: Remove NG tube, clear liquid diet, full liquid diet for dinner and surgical soft diet for breakfast tomorrow. If he does well with advancement of diet, discharge home tomorrow. Continue DVT prophylaxis, incentive, ambulation. Margarita lSoan MD 03/22/2021 * Sean Marquez APRN - 03/22/2021 9:56 AM CDT Hospitalist Daily Progress Note Subjective Patient remains stable. No acute issues. Ambulating frequently. Passing flatus into colostomy, small bowel content present as well. Denies chest pain, dyspnea, N/V, fever/chills, abdominal pain, constipation, diarrhea, dizziness, lightheadedness, syncope, and headache Objective Filed Vitals: 03/21/21202003/22/21 0500 03/22/21 0510 03/22/21 0736 BP: 133/78 Pulse: 64 Resp: 18 Temp: 98.7 ??F (37.1 ??C) TempSrc: Oral SpO2: 95% 93% 97% Weight: 73.5 kg (162 lb 0.6 oz) Height: Physical Exam: GENERAL:??No acute distress, well developed, and alert HEENT:?Mucous membranes moist, neck supple, trachea midline RESPIRATORY:??Respirations even and unlabored, clear breath sounds, no wheezes, mild crackles bilateral bases CARDIAC:??Regular rate and rhythm, no murmur, gallops, or JVD, no peripheral edema GI:?? Mildly tender postop, nondistended, bowel sounds hypoactive, JITENDRA in place, NG also in place, left lower quadrant ostomy bag with serosanguineous thin clear liquid : No suprapubic tenderness upon palpation, no CVAT??Mullins catheter in place MUSC:??ROM grossly intact NEURO:??Alert and oriented, no gross deficit, cranial nerves intact, PERRLA SKIN:??Incisions clean dry intact, abdominal binder in place LYMPH: No obvious lymphadenopathy?? PSYCH: ??Alert, appropriate, normal behavior, normal judgement and thought content Intake/Output 24H Total: Intake/Output Summary (Last 24 hours) at 03/22/2021 0956 Last data filed at 03/22/2021 0800 Gross per 24 hour Intake 8235.8 ml Output 5425 ml Net 2810.8 ml Medication ??? heparin (porcine) 5,000 Units Subcutaneous 2 times per day ??? pantoprazole 40 mg Intravenous Daily ??? piperacillin-tazobactam 3.375 g Intravenous Q8H ??? lactated ringers 100 mL/hr at 03/22/21 0449 PRN Meds: acetaminophen, HYDROmorphone, HYDROmorphone, naLOXone, ondansetron Labs: Recent Results (from the past 24 hour(s)) BASIC METABOLIC PANEL Collection Time: 03/22/21 5:00 AM Result Value Ref Range GLUCOSE 97 70 - 99 MG/DL BUN 6 (L) 7 - 18 MG/DL CREATININE S/P/B 0.80 0.7 - 1.3 MG/DL SODIUM 139 136 - 145 MMOL/L POTASSIUM 3.5 3.5 - 5.1 MMOL/L CHLORIDE S/P/B 101 100 - 108 MMOL/L CO2 28.3 21 - 32 MMOL/L CALCIUM 8.6 8.5 - 10.1 MG/DL ANION GAP 9.7 5 - 15 MMOL/L BUN CREATININE RATIO 7.5 6 - 26 eGFR Non-Afr. Amer. >90 >90 ML/MIN/1.73 M2 eGFR Afr. Amer. >90 >90 ML/MIN/1.73 M2 CBC W/DIFF AUTOMATED Collection Time: 03/22/21 5:00 AM Result Value Ref Range WBC 8.4 4.8 - 10.8 x10'3/uL RBC 3.87 (L) 4.50 - 5.90 x10'6/uL HGB 12.4 (L) 13.5 - 17.5 G/DL HCT 37.3 (L) 41 - 53 % MCV 96.4 80 - 100 FL MCH 32.0 26.0 - 34.0 PG MCHC 33.2 31.0 - 37.0 G/DL RDW 12.9 11.5 - 14.5 % PLT 225 150 - 350 x10'3/uL CBC COMMENT AUTOMATED RBC MORPHOLOGY AND PLATELET EVALUATION NORMAL NEUTROPHILS 73.2 (H) 50 - 70 % LYMPHOCYTES 16.9 (L) 18 - 42 % MONOCYTES 8.7 2.0 - 11.0 % EOSINOPHILS 0.8 (L) 1.0 - 3.0 % BASOPHILS 0.4 0.0 - 1.0 % ABS. NEUTROPHILS TOTAL 6.11 1.69 - 7.81 x10'3/uL MAGNESIUM Collection Time: 03/22/21 5:00 AM Result Value Ref Range MAGNESIUM 1.9 1.8 - 2.4 MG/DL X-Ray CT ABD+PEL W IV CON ONLY Addendum Date: 03/18/2021 ADDENDUM: I reviewed the findings with Dr. Barajas at 1158 hours. Referred By: LAURI ALANIS Interpreted By: Norman Smallwood, 112:00 PM Result Date: 03/18/2021 IMAGING STUDIES: CT ABD+PEL W CON [...] control with radiation dose reduction. CHEST: No acuteinfiltrate or consolidation in the lung bases. Minimal [...] to perforated diverticulum. No appendicitis. MUSCULOSKELETAL: Degenerative changesspine, pelvis, and hips. Spinal degenerative changes greatest at L5-S1 level. IMPRESSION: Abdominal free air consistent with bowel perforation. Approximately 3 cm x 3.7 cm densestool ball in the sigmoid colon near the area of inflammation and air. Several sigmoid diverticula also in the region suggesting the source may be perforated diverticulum. Air tracking in the mesentery to the upper abdomen including subdiaphragmatic space. I discussed findings with Lauri Alanis in the emergency department at 1120 hours. Referred By: LAURI ALANIS Interpreted By: Norman Smallwood, 03/18/2021 11:08 AM XR CHEST PORTABLE Result Date: 03/19/2021 EXAMINATION: CHEST X-RAY ONE VIEW EXAM TIME: 0159 hours. COMPARISON: None available HISTORY: NG tube placement. FINDINGS: A single portable AP view of the chest is submitted for evaluation. Endogastric tube placement with tip and side port within the proximal stomach. The heart is within normal limits in size. Pulmonary vascularity is within normal limits. The lungs are well expanded without focal airspace consolidation. No pleural effusions. No pneumothorax. IMPRESSION: No acute cardiopulmonary disease. Endogastric tube placement, as detailed. Referred By: Interpreted By: Mahi Ortez MD, 03/19/2021 1:21 AM Assessment/Plan: Perforated sigmoid diverticulitis As noted on imaging??with free air Continue IV antibiotics with Zosyn Watch for improvement in abdominal pain Continue to monitor bowel movements Monitor for change in condition Consider change in antibiotics or adjunct therapy NPO, will advance diet slowly per general surgery Pain control and antiemetics If patient requires longer than 3 or 4 days of n.p.o. status, consider PPN/TPN 03/20 pain controlled, positive flatus, no BM, still with high NG output. WBC trending up. Continue n.p.o. 03/21 pain controlled, having flatus, liquid in his ostomy bag but no real stool, NG output trendingdown, WBC trending down. Continue n.p.o. for now, advance diet when having more stool output. encourage ambulation 03/22: No pain, continues to pass flatus and having small stool in ostomy bag. NG remains in place, clamped for 24 hours, wait for general surgery to advance diet. Encouraged ongoing ambulation ?? HLD Continue statin ?? RANDY History of Monitor for drop in saturations and provide supplemental O2 as needed Consider CPAP/BIPAP if appropriate ?? Anemia Likely due to acute blood loss??or dilutional changes Hemoglobin remain stables Monitor trend of H&H Consider blood transfusion if warranted Make adjustments as necessary Started PPI 03/19 due to some bloody appearing NG output, monitor closely Hemoglobin stable, NG output no longer bloody ?? Nicotine dependence Patient is a daily smoker Monitor for signs of withdrawal Nicotine patch daily or as needed Hypokalemia Potassium low Replete and monitor ?? VTE Prophylaxis Heparin SQ ? CODE STATUS:??Full ADMISSION STATUS:??Inpatient During my evaluation and management, personal protective equipment was used and reasonable measureswere taken to reduce spread based on the current recommendations from the CDC and WHO SEAN MARQUEZ APRN 03/22/2021 9:56 AM Cosigned by Lita Hu MD at 03/22/2021 11:18 AM CDT * Ruma Treviño RN - 03/22/2021 5:25 AM CDT Patient with no complaints of nausea/vomiting this shift. Intermittent pain. Patient was able to rest some this shift. Patient voiding well with catheter. Blood tinged/brown secretions out of ostomy.Gas present. Will review labs this morning for potassium levels. Problem: Discharge Planning Goal: Knowledge of discharge instructions 03/22/2021 05 by Ruma Treviño RN Outcome: Progressing 03/21/20212120 by Ruma Treviño RN Outcome: Progressing Problem: Fluid Volume - Imbalance Goal: Absence of imbalanced fluid volume signs and symptoms 03/22/2021 05 by Ruma Treviño RN Outcome: Progressing 03/21/20212120 by Ruma Treviño RN Outcome: Progressing Problem: Nausea/Vomiting Goal: Absence of nausea/vomiting 03/22/2021 05 by Ruma Treviño RN Outcome: Progressing 03/21/20212120 by Ruma Treviño RN Outcome: Progressing Goal: Electrolytes within specified parameters 03/22/2021 05 by Ruma Treviño RN Outcome: Progressing 03/21/20212120 by Ruma Treviño RN Outcome: Progressing Problem: Nutrition Deficit Goal: Adequate nutritional intake 03/22/2021 05 by Ruma Treviño RN Outcome: Progressing 03/21/20212120 by Ruma Treviño RN Outcome: Progressing * Ruma Treviño RN - 03/21/2021 9:21 PM CDT Problem: Discharge Planning Goal: Knowledge of discharge instructions Outcome: Progressing Problem: Fluid Volume - Imbalance Goal: Absence of imbalanced fluid volume signs and symptoms Outcome: Progressing Problem: Nausea/Vomiting Goal: Absence of nausea/vomiting Outcome: Progressing Goal: Electrolytes within specified parameters Outcome: Progressing Problem: Nutrition Deficit Goal: Adequate nutritional intake Outcome: Progressing * Abdoulaye Jane MD - 03/21/2021 10:12 AM CDT [facility] GENERAL SURGERY DAILY PROGRESS NOTE Mandie Cotter 65-year-old male Date of Service: 03/21/2021 SUBJECTIVE / INTERIM EVENTS: -Doing well overall -Epidural removed yesterday without issue -Pain well controlled; now on intermittent IV Dilaudid -HENRIETTA o/n -Afebrile and HDS -WBC down trending 11.2 > 8.6 -Blood cultures growing Enterobacter cloacae -NGT 200 cc overnight - continues to be blood tinged -JITENDRA 30 cc overnight/ 100 cc for the 24 h period - thin serous -Denies any dizziness -Notes continued intermittent passage of flatus from the ostomy and now small amount of SS fluid/bowel sweat -Has been OOBTC and ambulating PHYSICAL EXAM: Blood pressure 140/72, pulse 76, temperature 98.7 ??F (37.1 ??C), temperature source Oral, resp. rate 20, height 5' 6 (1.676 m), weight 74.6 kg (164 lb 7.4 oz), SpO2 94 %. Body mass index is 26.55 kg/m??. Physical Exam Constitutional: He is oriented to person, place, and time. He appears well- developed. No distress. HENT: Head: Normocephalic and atraumatic. Eyes: No scleral icterus. Cardiovascular: Normal rate and regular rhythm. Pulmonary/Chest: Effort normal and breath sounds normal. No respiratory distress. He has no wheezes. He has no rales. Abdominal: Soft. He exhibits no distension. There is no rebound and no guarding. Abdominal binder in place. JITENDRA drain to self suction and with thin serous output. Pravena wound vac over the midline incision. LLQ colostomy which is reddish and viable. Small amount of thin SS fluid/bowel sweat in the ostomy appliance. Minimal tenderness. No rebound or guarding. Musculoskeletal: General: No edema. Neurological: He is alert and oriented to person, place, and time. Skin: Skin is warm. He is not diaphoretic. No erythema. Psychiatric: He has a normal mood and affect. His behavior is normal. Judgment and thought content normal. LABS: Recent Labs Lab 03/18/21 0950 03/19/21 0545 03/20/21 0515 03/21/21 0255 WBC 13.7* 9.8 11.2* 8.6 RBC 4.81 3.77* 3.44* 3.58* HGB 15.7 12.0* 11.1* 11.6* HCT 45.7 36.5* 34.1* 35.3* NA 137 137 142 140 K 4.0 4.1 3.7 3.1* CL 100 104 108 106 CO2 28.1 25.3 29.1 28.0 AGAP 8.9 7.7 4.9* 6.0 BUN 19* 16 17 9 CR 0.85 0.80 0.80 0.70 BUNCREATININ 22.4 20.0 21.2 12.9 GFRNON >90 >90 >90 >90 GFR >90 >90 >90 >90 GLU 122* 153* 213* 122* CA 8.9 7.9* 7.6* 7.7* TP 8.4* 6.6 6.4 -- ALB 4.3 3.0* 2.7* -- TBIL 1.7* 1.3* 0.8 -- ALKP 50 31* 33* -- AST 19 30 36 -- ALT 35 32 33 -- LIPASE 72* -- -- -- No results for input(s): APTT, INR, PTT in the last 168 hours. IMAGING: Radiology Results (Last 48 hours) None ASSESSMENT AND PLAN: The patient is a 65 yo M s/p diagnostic laparoscopy with conversion to exploratory laparotomy for asigmoidectomy and colostomy creation with suture repair of the bladder and drain placement for the treatment of perforated sigmoid diverticulitis on 03/19/21. POD#3. Currently afebrile and HDS on RA. The patient continues to be doing well overall. Labs are reassuring. Patient notes passing of gas from the ostomy and there is a small amount of thin SS fluid/bowel sweat in the ostomy appliance. -Clamp NGT today -Patient can start with sips of CLD -Maintance IV fluid -Continue IV Zosyn -Maintain Mullins catheter for the next two weeks -Closely monitor UOP -NGT to LCWS -Record NGT output Qshift -Continue to monitor character of NGT output -IV Protonix for blood tinged output -JITENDRA to self suction -Record JITENDRA drain output Qshift -Monitor ostomy output -IV Dilaudid sliding scale for pain control -Daily CMP and CBC -OOBTC and ambulate as tolerated -PT consult -Nutrition consult -RT consult -Aggressive pulmonary toilet (intentional coughing, frequent IS use) -Bilateral SCDs Please call or [facility] with any questions or concerns. ABDOULAYE JANE MD 03/21/2021 * Lita Hu MD - 03/21/2021 8:15 AM CDT Hospitalist Daily Progress Note Subjective Patient seen and examined. Feeling about the same as yesterday Having gas into his ostomy bag, has some serosanguineous appearing thin clear liquid in his ostomy bag. Still with high output from NG, but decreasing, 350 last 24hrs, no longer bloody appearing. WBC trending down, afebrile Objective Filed Vitals: 03/20/21 1300 03/20/21 2030 03/20/218 03/21/21 0750 BP: 150/74 140/72 Pulse: 78 76 Resp: 18 20 Temp: 98.6 ??F (37 ??C) 98.7 ??F (37.1 ??C) TempSrc: Temporal Oral SpO2: 92% 92% 92% 94% Weight: Height: Physical Exam: Physical Exam GENERAL: No acute distress, well developed, and alert HEENT: Mucous membranes moist, neck supple, trachea midline RESPIRATORY: Respirations even and unlabored, clear breath sounds, no wheezes, mild crackles bilateral bases CARDIAC: Regular rate and rhythm, no murmur, gallops, or JVD, no peripheral edema GI: Mildly tender postop, nondistended, bowel sounds hypoactive, JITEDNRA in place, NG also in place, left lower quadrant ostomy bag with serosanguineous thin clear liquid : No suprapubic tenderness upon palpation, no CVAT Mullins catheter in place MUSC: ROM grossly intact NEURO: Alert and oriented, no gross deficit, cranial nerves intact, PERRLA SKIN: Incisions clean dry intact, abdominal binder in place LYMPH: No obvious lymphadenopathy PSYCH: Alert, appropriate, normal behavior, normal judgement and thought content Intake/Output 24H Total: Intake/Output Summary (Last 24 hours) at 03/21/2021 0815 Last data filed at 03/21/2021 0700 Gross per 24 hour Intake -- Output 3750 ml Net -3750 ml Medication ??? heparin (porcine) 5,000 Units Subcutaneous 2 times per day ??? pantoprazole 40 mg Intravenous Daily ??? piperacillin-tazobactam 3.375 g Intravenous Q8H ??? potassium chloride 10 mEq Intravenous Q1H ??? dextrose 5 %-sodium chloride 0.9 % 125 mL/hr at 03/21/21 0446 PRN Meds: acetaminophen, HYDROmorphone, HYDROmorphone, naLOXone, ondansetron Labs: Noted X-Ray?? CT ABD+PEL W CON DATE: 03/18/2021 10:38 AM Abdominal free air consistent with bowel perforation. Approximately 3 cm x3.7 cm dense stool ball in the sigmoid colon near the area of inflammation and air. Several sigmoiddiverticula also in the region suggesting the source may be perforated diverticulum. Air tracking in the mesentery to the upper abdomen including subdiaphragmatic space. ?? XR CHEST PORTABLE Result Date: 03/19/2021 No acute cardiopulmonary disease. Endogastric tube placement, as detailed. Assessment/Plan: Perforated diverticulum Perforated sigmoid diverticulitis As noted on imaging with free air Continue IV antibiotics with Zosyn Watch for improvement in abdominal pain Continue to monitor bowel movements Monitor for change in condition Consider change in antibiotics or adjunct therapy NPO, will advance diet slowly per general surgery Pain control and antiemetics If patient requires longer than 3 or 4 days of n.p.o. status, consider PPN/TPN 03/20 pain controlled, positive flatus, no BM, still with high NG output. WBC trending up. Continue n.p.o. 03/21 pain controlled, having flatus, liquid in his ostomy bag but no real stool, NG output trendingdown, WBC trending down. Continue n.p.o. for now, advance diet when having more stool output. encourage ambulation HLD Continue statin ?? RANDY History of Monitor for drop in saturations and provide supplemental O2 as needed Consider CPAP/BIPAP if appropriate ?? Anemia Likely due to acute blood loss or dilutional changes Hemoglobin remain stables Monitor trend of H&H Consider blood transfusion if warranted Make adjustments as necessary Started PPI 03/19 due to some bloody appearing NG output, monitor closely Hemoglobin stable, NG output no longer bloody ?? Nicotine dependence Patient is a daily smoker Monitor for signs of withdrawal Nicotine patch daily or as needed ?? VTE Prophylaxis Heparin SQ ? CODE STATUS: Full ADMISSION STATUS: Inpatient LITA HU MD 03/21/2021 8:15 AM * Gauri Romo RN - 03/21/2021 5:28 AM CDT Problem: Discharge Planning Goal: Knowledge of discharge instructions 03/21/[id number] by Gauri Romo RN Outcome: Progressing 03/21/2021 0014 by Gauri Romo RN Outcome: Progressing Problem: Fluid Volume - Imbalance Goal: Absence of imbalanced fluid volume signs and symptoms 03/21/2021527 by Gauri Romo RN Outcome: Progressing 03/21/2021 0014 by Gauri Romo RN Outcome: Progressing Problem: Nausea/Vomiting Goal: Absence of nausea/vomiting 03/21/[id number] by Gauri Romo RN Outcome: Progressing 03/21/2021 0014 by Gauri Romo RN Outcome: Progressing Goal: Electrolytes within specified parameters 03/21/2021527 by Gauri Romo RN Outcome: Progressing 03/21/2021 0014 by Gauri Romo RN Outcome: Progressing Problem: Nutrition Deficit Goal: Adequate nutritional intake 03/21/2021527 by Gauri Romo RN Outcome: Progressing 03/21/2021 0014 by Gauri Romo RN Outcome: Progressing * Gauri Romo RN - 03/21/2021 12:14 AM CDT Problem: Discharge Planning Goal: Knowledge of discharge instructions Outcome: Progressing Problem: Fluid Volume - Imbalance Goal: Absence of imbalanced fluid volume signs and symptoms Outcome: Progressing Problem: Nausea/Vomiting Goal: Absence of nausea/vomiting Outcome: Progressing Goal: Electrolytes within specified parameters Outcome: Progressing Problem: Nutrition Deficit Goal: Adequate nutritional intake Outcome: Progressing * Abdoulaye Jane MD - 03/20/2021 9:36 AM CDT [facility] GENERAL SURGERY DAILY PROGRESS NOTE Mandie Cotter 65-year-old male Date of Service: 03/20/2021 SUBJECTIVE / INTERIM EVENTS: -OOBTC and ambulating yesterday -Pain controlled when at rest -HENRIETTA o/n -Afebrile and HDS -Slight rise in WBC from 9.8 to 11.2 -H&H drifting down: 12.0/36.5 > 11.1/34.1 -450 cc from NGT overnight - continues to be blood tinged -JITENDRA 40 cc overnight - now serous -Noted mild dizziness when rising to standing position today -Notes episodes of gas passing from the ostomy PHYSICAL EXAM: Blood pressure 131/63, pulse 71, temperature 98.2 ??F (36.8 ??C), temperature source Oral, resp. rate 18, height 5' 6 (1.676 m), weight 74.6 kg (164 lb 7.4 oz), SpO2 93 %. Body mass index is 26.55 kg/m??. Physical Exam Constitutional: He is oriented to person, place, and time. He appears well- developed. No distress. HENT: Head: Normocephalic and atraumatic. Eyes: No scleral icterus. Cardiovascular: Normal rate and regular rhythm. Pulmonary/Chest: Effort normal and breath sounds normal. No respiratory distress. He has no wheezes. He has no rales. Abdominal: Soft. He exhibits no distension. There is no rebound and no guarding. Abdominal binder in place. JITENDRA drain to self suction and with serous output. Pravena wound vac over the midline incision. No bowel sounds. LLQ colostomy which is reddish and viable. No output in the ostomy appliance. Minimal tenderness. No rebound or guarding. Musculoskeletal: General: No edema. Neurological: He is alert and oriented to person, place, and time. Skin: Skin is warm. He is not diaphoretic. No erythema. Psychiatric: He has a normal mood and affect. His behavior is normal. Judgment and thought content normal. LABS: Recent Labs Lab 03/18/21 0950 03/19/21 0545 03/20/21 0515 WBC 13.7* 9.8 11.2* RBC 4.81 3.77* 3.44* HGB 15.7 12.0* 11.1* HCT 45.7 36.5* 34.1* NA 137 137 142 K 4.0 4.1 3.7 CL 100 104 108 CO2 28.1 25.3 29.1 AGAP 8.9 7.7 4.9* BUN 19* 16 17 CR 0.85 0.80 0.80 BUNCREATININ 22.4 20.0 21.2 GFRNON >90 >90 >90 GFR >90 >90 >90 GLU 122* 153* 213* CA 8.9 7.9* 7.6* TP 8.4* 6.6 6.4 ALB 4.3 3.0* 2.7* TBIL 1.7* 1.3* 0.8 ALKP 50 31* 33* AST 19 30 36 ALT 35 32 33 LIPASE 72* -- -- No results for input(s): APTT, INR, PTT in the last 168 hours. IMAGING: Radiology Results (Last 48 hours) 03/19/21 0116 XR CHEST PORTABLE Final result Impression: IMPRESSION: No acute cardiopulmonary disease. Endogastric tube placement, as detailed. Referred By: Interpreted By: Mahi Ortez MD, 03/19/2021 1:21 AM 03/18/[address] ABD+PEL W IV CON ONLY Edited Result - FINAL Addenda: ADDENDUM: I reviewed the findings with Dr. Barajas at 1158 hours. Referred By: LAURI ALANIS Interpreted By: Norman Smallwood, 03/18/2021 12:00 PM Signed by Norman Smallwood MD on[03/18/21 1204] Impression: IMPRESSION: Abdominal free air consistent with bowel [...] Interpreted By: Norman Smallwood, 03/18/2021 11:08 AM ASSESSMENT AND PLAN: The patient is a 65 yo M s/p diagnostic laparoscopy with conversion to exploratory laparotomy for asigmoidectomy and colostomy creation with suture repair of the bladder and drain placement for the treatment of perforated sigmoid diverticulitis on 03/19/21. POD#2. Currently afebrile and HDS on 2.5 L NC. The patient continues to be doing well overall. Slight rise in WBC and drift downward in H&H - will closely monitor. Awaiting return of bowel function. -Strict NPO -No ice chips -Maintance IV fluid -Continue IV Zosyn -Maintain Mullins catheter for the next two weeks -Closely monitor UOP -NGT to LCWS -Record NGT output Qshift -Continue to monitor character of NGT output -IV Protonix for blood tinged output -JITENDRA to self suction -Record JITENDRA drain output Qshift -Monitor ostomy output -Epidural can be removed -Daily CMP and CBC -OOBTC and ambulate as tolerated -PT consult -Nutrition consult -RT consult -Aggressive pulmonary toilet (intentional coughing, frequent IS use) -Bilateral SCDs ABDOULAYE JANE MD 03/20/2021 * Lita Hu MD - 03/20/2021 7:41 AM CDT Hospitalist Daily Progress Note Subjective Patient seen and examined. Noted dark potentially bloody NG output, started on PPI overnight. Currently complaining of lightheadedness and dizziness after standing from bed to chair. Having gas into his ostomy bag but no stool output. Still with high output from NG, greater than 400 overnight. WBC trending up, afebrile Objective Filed Vitals: 03/19/21 1540 03/19/21 1900 03/20/21 0458 03/20/21 0707 BP: 113/56 131/63 Pulse: 77 71 Resp: 18 Temp: 98.4 ??F (36.9 ??C) 98.2 ??F (36.8 ??C) TempSrc: Axillary Oral SpO2: 93% 91% 92% 93% Weight: Height: Physical Exam: Physical Exam GENERAL: No acute distress, well developed, and alert HEENT: Mucous membranes moist, neck supple, trachea midline RESPIRATORY: Respirations even and unlabored, clear breath sounds, no wheezes, mild crackles bilateral bases CARDIAC: Regular rate and rhythm, no murmur, gallops, or JVD, no peripheral edema GI: Mildly tender postop, nondistended, bowel sounds hypoactive, JITENDRA in place, NG also in place withdark bloody drainage, left lower quadrant ostomy bag is empty : No suprapubic tenderness upon palpation, no CVAT Mullins catheter in place MUSC: ROM grossly intact NEURO: Alert and oriented, no gross deficit, cranial nerves intact, PERRLA SKIN: Incisions clean dry intact, abdominal binder in place LYMPH: No obvious lymphadenopathy PSYCH: Alert, appropriate, normal behavior, normal judgement and thought content Intake/Output 24H Total: Intake/Output Summary (Last 24 hours) at 03/20/2021 0741 Last data filed at 03/20/2021 0607 Gross per 24 hour Intake 10 ml Output 1662 ml Net -1652 ml Medication ??? heparin (porcine) 5,000 Units Subcutaneous 2 times per day ??? pantoprazole 40 mg Intravenous Daily ??? piperacillin-tazobactam 3.375 g Intravenous Q8H ??? dextrose 5 %-sodium chloride 0.9 % 125 mL/hr at 03/20/21 0319 ??? meperidine (DEMEROL) epidural 9 mL/hr at 03/19/21 1808 PRN Meds: acetaminophen, diphenhydrAMINE, naLOXone (NARCAN) 0.04 mg/mL (DILUTION) syringe, naLOXone, naLOXone, ondansetron Labs: Noted X-Ray?? CT ABD+PEL W CON DATE: 03/18/2021 10:38 AM Abdominal free air consistent with bowel perforation. Approximately 3 cm x3.7 cm dense stool ball in the sigmoid colon near the area of inflammation and air. Several sigmoiddiverticula also in the region suggesting the source may be perforated diverticulum. Air tracking in the mesentery to the upper abdomen including subdiaphragmatic space. ?? XR CHEST PORTABLE Result Date: 03/19/2021 No acute cardiopulmonary disease. Endogastric tube placement, as detailed. Assessment/Plan: Perforated diverticulum Perforated sigmoid diverticulitis As noted on imaging with free air Continue IV antibiotics with Zosyn Watch for improvement in abdominal pain Continue to monitor bowel movements Monitor for change in condition Consider change in antibiotics or adjunct therapy NPO, will advance diet slowly per general surgery Pain control and antiemetics If patient requires longer than 3 or 4 days of n.p.o. status, consider PPN/TPN 03/20 pain controlled, positive flatus, no BM, still with high NG output. WBC trending up. Continue n.p.o. ?? HLD Continue statin ?? RANDY History of Monitor for drop in saturations and provide supplemental O2 as needed Consider CPAP/BIPAP if appropriate ?? Anemia Likely due to acute blood loss or dilutional changes Hemoglobin remain stables Monitor trend of H&H Consider blood transfusion if warranted Make adjustments as necessary Started PPI 03/19 due to some bloody appearing NG output, monitor closely ?? Nicotine dependence Patient is a daily smoker Monitor for signs of withdrawal Nicotine patch daily or as needed ?? VTE Prophylaxis Heparin SQ ? CODE STATUS: Full ADMISSION STATUS: Inpatient LITA HU MD 03/20/2021 7:41 AM * Gauri Romo RN - 03/19/2021 11:10 PM CDT Problem: Discharge Planning Goal: Knowledge of discharge instructions Outcome: Progressing Problem: Fluid Volume - Imbalance Goal: Absence of imbalanced fluid volume signs and symptoms Outcome: Progressing Problem: Nausea/Vomiting Goal: Absence of nausea/vomiting Outcome: Progressing Goal: Electrolytes within specified parameters Outcome: Progressing Problem: Nutrition Deficit Goal: Adequate nutritional intake Outcome: Progressing * Jesi Pak RN - 03/19/2021 5:00 PM CDT Problem: Discharge Planning Goal: Knowledge of discharge instructions Outcome: Progressing Problem: Fluid Volume - Imbalance Goal: Absence of imbalanced fluid volume signs and symptoms Outcome: Progressing Problem: Nausea/Vomiting Goal: Absence of nausea/vomiting Outcome: Progressing Goal: Electrolytes within specified parameters Outcome: Progressing Problem: Nutrition Deficit Goal: Adequate nutritional intake Outcome: Progressing * Cindy Conley RD - 03/19/2021 11:04 AM CDT Dietitian Nutrition Assessment Mandie Pavan Cotter, 1955, 65-year-old male admitted for Perforated diverticulum [K57.80]. Nutrition Recommendations: Nutrition Diagnosis: ALTERED GI FUNCTION related to an alteration in the GI tract structure as evidenced by sigmoidectomy and colostomy, now NPO with NG tube to suction, no bowel sounds and no ostomyoutput. Nutrition Intervention: MEDICAL FOOD SUPPLEMENT THERAPY using commercial beverage Clear Ensure should be initiated with a Clear Liquid diet as soon as medically able. Nutrition Prescription: Recommend advancement of diet per ERAS protocol to include an enteral diet within 24-48 hours and to include an oral supplement such as Clear Ensure with meals. Nutrition Monitoring and Evaluation: Patient's food and beverage intake will be >50% of estimated nutritional needs once oral diet begins. Past Medical History Past Medical History: Diagnosis Date ??? Arthritis ??? Cervical stenosis of spine ??? Hyperlipidemia ??? Influenza vaccine administered ??? RANDY (obstructive sleep apnea) Admit Date: 12/19/2020 MST Score: 0 Referral From: Nutrition Screening Assessment: Initial Assessment Anthropometrics: Wt Readings from Last 3 Encounters: 03/18/21 74.6 kg (164 lb 7.4 oz) 03/18/21 72.6 kg (160 lb) 03/10/21 72.6 kg (160 lb) Ht Readings from Last 1 Encounters: 03/18/21 5' 6 (1.676 m) Body mass index is 26.55 kg/m??. BMI Assessment: Normal Mulga Body Weight: 136 pounds Percent Mulga Body Weight: 121% Usual Body Weight: 166 pounds in January 2020 Percent Usual Body Weight: 99% Percent Weight Loss: 1% x 14 months Nutrition Focused Physical Findings: not completed POD 1 Nutrition: Current Diet Order: Diet NPO effective now Diet Comment: Patient from home with no reported weight loss or poor appetite prior to hospitalization. Learning needs assessed: No cognitive deficits per nursing Chewing/swallowing problems: No Food allergies/intolerances: none Cultural/Congregational food preferences: none Current diet appropriate? Yes until safe to use the enteral route Current intake sufficient to meet nutritional needs? No Pain affecting PO intake? No Estimated Nutrient Needs: Calories: 9013-9040 kcal/day, based on 25-30 kcal/kg Protein: 94 gm/day, based on 1.25 gm/kg Fluid: 2000 ml/day, based on 30 cc/kg Labs: Alb 3.0, TP 6.6 HGB A1C Date Value Ref Range Status 02/15/2019 5.6 5.7 Final Nutrition Risk: High Inadequate Oral Intake Yes Unintended Weight Loss No Loss of Body Fat not completed Muscle Wasting not completed Fluid Accumulation No Reduced Recreational Therapy Aide Strength not completed Discharge nutrition plan: Discharge needs assessed. Will provide/update discharge instructions as needed. (See Nutrition Prescription above) CINDY CONLEY RD 03/19/21, 11:04 AM * Abdoulaye Jane MD - 03/19/2021 9:19 AM CDT [facility] SURGERY DAILY PROGRESS NOTE Mandie Cotter 65-year-old male Date of Service: 03/19/2021 SUBJECTIVE / INTERIM EVENTS: -Patient underwent a diagnostic laparoscopy with conversion to exploratory laparotomy for a sigmoidectomy and colostomy creation with suture repair of the bladder and drain placement yesterday afternoon/evening -Patient accidentally removed his NGT last night and another was placed (placement confirmed by CXR) -Afebrile and HDS on 3L NC -550 cc UOP overnight -JITENDRA with 27 cc of SS output -NGT with 200 cc of gastric fluid -WBC 9.8 from 13.7 -Denies any nausea or emesis -Notes that his pain is well controlled -No other complaints PHYSICAL EXAM: Blood pressure 119/72, pulse 76, temperature 98.2 ??F (36.8 ??C), temperature source Oral, resp. rate 20, height 5' 6 (1.676 m), weight 74.6 kg (164 lb 7.4 oz), SpO2 95 %. Body mass index is 26.55 kg/m??. Physical Exam Constitutional: He is oriented to person, place, and time. He appears well- developed. No distress. HENT: Head: Normocephalic and atraumatic. Eyes: No scleral icterus. Cardiovascular: Normal rate and regular rhythm. Pulmonary/Chest: Effort normal and breath sounds normal. No respiratory distress. He has no wheezes. He has no rales. Abdominal: Soft. He exhibits no distension. There is no rebound and no guarding. Abdominal binder in place. JITENDRA drain to self suction and with SS output. Pravena wound vac over the midline incision. No bowel sounds. LLQ colostomy which is reddish and viable. No output in the ostomy appliance. Minimal tenderness. No rebound or guarding. Musculoskeletal: General: No edema. Neurological: He is alert and oriented to person, place, and time. Skin: Skin is warm. He is not diaphoretic. No erythema. Psychiatric: He has a normal mood and affect. His behavior is normal. Judgment and thought content normal. LABS: Recent Labs Lab 03/18/21 0950 03/19/21 0545 WBC 13.7* 9.8 RBC 4.81 3.77* HGB 15.7 12.0* HCT 45.7 36.5* NA 137 137 K 4.0 4.1 CL 100 104 CO2 28.1 25.3 AGAP 8.9 7.7 BUN 19* 16 CR 0.85 0.80 BUNCREATININ 22.4 20.0 GFRNON >90 >90 GFR >90 >90 GLU 122* 153* CA 8.9 7.9* TP 8.4* 6.6 ALB 4.3 3.0* TBIL 1.7* 1.3* ALKP 50 31* AST 19 30 ALT 35 32 LIPASE 72* -- No results for input(s): APTT, INR, PTT in the last 168 hours. IMAGING: Radiology Results (Last 48 hours) 03/19/21 0116 XR CHEST PORTABLE Final result Impression: IMPRESSION: No acute cardiopulmonary disease. Endogastric tube placement, as detailed. Referred By: Interpreted By: Mahi Ortez MD, 03/19/2021 1:21 AM 03/18/[address] ABD+PEL W IV CON ONLY Edited Result - FINAL Addenda: ADDENDUM: I reviewed the findings with Dr. Barajas at 1158 hours. Referred By: LAURI ALANIS Interpreted By: Norman Smallwood, 03/18/2021 12:00 PM Signed by Norman Smallwood MD on[03/18/21 1204] Impression: IMPRESSION: Abdominal free air consistent with bowel [...] Interpreted By: Norman Smallwood, 03/18/2021 11:08 AM ASSESSMENT AND PLAN: The patient is a 65 yo M s/p diagnostic laparoscopy with conversion to exploratory laparotomy for asigmoidectomy and colostomy creation with suture repair of the bladder and drain placement for the treatment of perforated sigmoid diverticulitis on 03/19/21. POD#1. Currently afebrile and HDS on 3 L NC. The patient is doing well overall. Awaiting return of bowel function. -NPO -Maintance IV fluid -Continue IV Zosyn -Maintain Mullins catheter for the next two weeks -Closely monitor UOP -NGT to LCWS -Record NGT output Qshift -JITENDRA to self suction -Record JITENDRA drain output Qshift -Monitor ostomy output -Anaesthesia to manage epidural -Daily CMP and CBC -OOBTC and ambulate as tolerated -PT consult -Nutrition consult -RT consult -Aggressive pulmonary toilet (intentional coughing, frequent IS use) -Bilateral SCDs ABDOULAYE JANE MD 03/19/2021 documented in this encounter H&P Notes * Sean Marquez APRN - 03/19/2021 11:35 AM CDT Hospitalist History and Physical Patient: Mandie Cotter Date: 03/19/2021 male, 65-year-old Admit Date: 03/18/2021 Attending: Sean Marquez APRN REASON FOR ADMISSION: Abdominal pain HISTORY OF PRESENT ILLNESS: Mandie Cotter is a 65-year-old male that presented to the ED at [facility] for complaints of severe lower abdominal/suprapubic abdominal pain associated with subjective fevers and chills. He also stated that he did have associated urinary frequency but denied any particles in the urine. He denied any change in bowel movements. He stated that the pain was so severe but relieved with pain medication twice in the emergency department at [facility]. He believes his last colonoscopy was close to 10 years ago. He is unaware of a history of diverticulosis. He has never had any abdominal surgeries. He has had bilateral inguinal hernia repairs. At current, patient denies any chest pain, dyspnea, dizziness, light headedness, headache, syncope, arthralgia, numbness/tingling, nausea/vomiting, fever/chills, cough, dysuria, polyuria, polyphagia, polydipsia, blurred vision, double vision, palpitations, hematuria, hematochezia, hematemesis, hemoptysis, abdominal pain, constipation, diarrhea, incontinence, anorexia, and unintended weight loss. Allergy Allergies Allergen Reactions ??? Morphine Itching Medication list Medications Prior to Admission Medication Sig Dispense Refill ??? Ascorbic Acid (VITAMIN C) 100 MG tablet Take 100 mg by mouth daily. ??? aspirin 81 MG chewable tablet Chew 81 mg by mouth daily. ??? atorvastatin 40 MG tablet Take 1 tablet (40 mg total) by mouth nightly at bedtime. 90 tablet 1 ??? Cholecalciferol (VITAMIN D) 50 MCG (1999) Cap Take 25 mcg by mouth daily. ??? meloxicam 15 MG tablet Take 1 tablet (15 mg total) by mouth daily. 90 tablet 1 ??? Misc Natural Products (OSTEO BI-FLEX JOINT SHIELD OR) Take 1 tablet by mouth 2 (two) times daily. ??? Vitamin E 400 units Tab Take 400 Units by mouth daily. ??? zinc gluconate 50 MG Tab Take 1 tablet by mouth daily. ? ? CPAP SUPPLIES 1 Units by Does not apply route nightly at bedtime. Mask, tubing & filters 1 Device 3 No current facility-administered medications on file prior to encounter. Current Outpatient Medications on File Prior to Encounter Medication Sig Dispense Refill ??? Ascorbic Acid [...] Cap Take 25 mcg by mouth daily. ??? meloxicam 15 MG tablet Take 1 tablet (15 mg total) by mouth daily. 90 tablet 1 ??? Misc Natural Products (OSTEO BI-FLEX JOINT SHIELD OR) Take 1 tablet by mouth 2 (two) times daily. ??? Vitamin E 400 units Tab Take 400 Units by mouth daily. ??? zinc gluconate 50 MG Tab Take 1 tablet by mouth daily. ? ? CPAP SUPPLIES 1 Units by Does not apply route nightly at bedtime. Mask, tubing & filters 1 Device 3 Past Medical History Past Medical History: Diagnosis Date ??? Arthritis ??? Cervical stenosis of spine ??? Hyperlipidemia ??? Influenza vaccine administered ??? RANDY (obstructive sleep apnea) Past Surgical History: Procedure Laterality Date ??? COLON SURGERY 03/18/2021 colostomy r/t perferation ??? COLONOSCOPY N/A 2013 ??? HERNIA REPAIR Right [facility] ??? HERNIA REPAIR Left [facility] ??? NECK/CHEST PROCEDURE UNLISTED Right [facility], re-built right side of neck. ??? TOTAL KNEE ARTHROPLASTY Bilateral ZANA Partial KR, done @ [facility] Social History Social History Socioeconomic History ??? Marital status: Spouse name: Not on file ??? Number of children: Not on file ??? Years of education: Not on file ??? Highest education level: Not on file Occupational History ??? Not on file Tobacco Use ??? Smoking status: Current Every Day Smoker Packs/day: 0.50 Types: Cigarettes ??? Smokeless tobacco: Never Used Substance and Sexual Activity ??? Alcohol use: [...] Gatherings with Friends and Family: ??? Attends Congregational Services: ??? Active Member of Clubs or Organizations: ??? Attends Club or Organization Meetings: ??? Marital Status: Intimate Partner Violence: ??? Fear of Current or Ex-Partner: ??? Emotionally Abused: ??? Physically Abused: ??? Sexually Abused: Family History Family History Problem Relation Name Age of Onset ??? Arthritis in Adults Mother ??? Dementia Mother at the end per patient ??? Hypertension Mother ??? Cancer Father ??? Heart Father ??? Heart Disease Father ??? Cancer Brother ??? COPD Brother REVIEW OF SYSTEMS: A 14 point review of systems was taken and pertinent positive as per HPI PHYSICAL EXAMINATION: Vital 24 Hour Range Most Recent Value Temperature Temp Min: 97.9 ??F (36.6 ??C) Max: 99.3 ??F (37.4 ??C) 98.2 ??F (36.8 ??C) Pulse Pulse Min: 76 Max: 102 76 Respiratory Resp Min: 16 Max: 28 20 Blood Pressure BP Min: 105/48 Max: 145/58 119/72 Pulse Oximetry SpO2 Min: 90 % Max: 100 % 95 % O2 O2 Flow Rate (L/min) Av.1 L/min Min: 2 L/min Min taken time: 03/19/21842 Max: 2032 L/min Max taken time: 03/18/21 2017 Vital Most Recent Value First Value Weight 74.6 kg (164 lb 7.4 oz) Weight: 74.6 kg (164 lb 7.4 oz) Height 5' 6 (167.6 cm) Height: 5' 6 (167.6 cm) BMI 26.6 N/A Physical Exam: GENERAL: No acute distress, well developed, and alert HEENT: Mucous membranes moist, neck supple, trachea midline RESPIRATORY: Respirations even and unlabored, clear breath sounds, no wheezes, or crackles noted CARDIAC: Regular rate and rhythm, no murmur, gallops, or JVD, no peripheral edema GI: Nontender, nondistended, bowel sounds present, no obvious masses, dressings clean dry intact, JITENDRA in place, NG also in place : No suprapubic tenderness upon palpation, no CVAT Mullins catheter in place MUSC: ROM grossly intact NEURO: Alert and oriented, no gross deficit, cranial nerves intact, PERRLA SKIN: Incisions clean dry intact, abdominal binder in place LYMPH: No obvious lymphadenopathy PSYCH: Alert, appropriate, normal behavior, normal judgement and thought content Intake/Output last 3 shifts: I/O last 3 completed shifts: In: 3700 [I.V.:3600; Other:50; IV Piggyback:50] Out: 1976 [Urine:1550; Emesis/NG output:200; Drains:27; Blood:200] Labs: Recent Results (from the past 24 hour(s)) CULTURE, BACTERIA, BLOOD Collection Time: 03/18/21 11:40 AM Specimen: BLOOD Result Value Ref Range Spec. Description BLOOD Special Requests: NO SPECIAL REQUEST Culture Result: NO GROWTH <24 HRS LACTIC ACID Collection Time: 03/18/21 11:50 AM Result Value Ref Range LACTIC ACID 1.4 0.4 - 2.0 MMOL/L CULTURE, BACTERIA, BLOOD Collection Time: 03/18/21 11:50 AM Specimen: BLOOD Result Value Ref Range Spec. Description BLOOD Special Requests: NO SPECIAL REQUEST Culture Result: NO GROWTH <24 HRS TYPE & SCREEN Collection Time: 03/18/21 2:33 PM Result Value Ref Range ABO/RH O POSITIVE ANTIBODY SCREEN NEGATIVE SAMPLE EXPIRATION: 03/21/2021,2359 CBC W/DIFF AUTOMATED Collection Time: 03/19/21 5:45 AM Result Value Ref Range WBC 9.8 4.8 - 10.8 x10'3/uL RBC 3.77 (L) 4.50 - 5.90 x10'6/uL HGB 12.0 (L) 13.5 - 17.5 G/DL HCT 36.5 (L) 41 - 53 % MCV 96.8 80 - 100 FL MCH 31.8 26.0 - 34.0 PG MCHC 32.9 31.0 - 37.0 G/DL RDW 13.3 11.5 - 14.5 % PLT 195 150 - 350 x10'3/uL NEUTROPHILS 88.7 (H) 50 - 70 % LYMPHOCYTES 6.4 (L) 18 - 42 % MONOCYTES 4.9 2.0 - 11.0 % EOSINOPHILS 0.0 (L) 1.0 - 3.0 % BASOPHILS 0.0 0.0 - 1.0 % ABS. NEUTROPHILS TOTAL 8.69 (H) 1.69 - 7.81 x10'3/uL PLT MORPH. 1+ RBC MORPHOLOGY NORMAL COMPREHENSIVE METABOLIC PANEL Collection Time: 03/19/21 5:45 AM Result Value Ref Range GLUCOSE 153 (H) 70 - 99 MG/DL BUN 16 7 - 18 MG/DL CREATININE S/P/B 0.80 0.7 - 1.3 MG/DL SODIUM 137 136 - 145 MMOL/L POTASSIUM 4.1 3.5 - 5.1 MMOL/L CHLORIDE S/P/B 104 100 - 108 MMOL/L CO2 25.3 21 - 32 MMOL/L CALCIUM 7.9 (L) 8.5 - 10.1 MG/DL BILIRUBIN TOTAL S/P/B 1.3 (H) 0.2 - 1.2 MG/DL TOTAL PROTEIN S/P/B 6.6 6.4 - 8.2 G/DL ALBUMIN S/P/B 3.0 (L) 3.4 - 5.0 G/DL AST 30 15 - 37 U/L ALT 32 16 - 60 U/L ALKALINE PHOSPHATASE S/P/B 31 (L) 50 - 136 U/L ANION GAP 7.7 5 - 15 MMOL/L BUN CREATININE RATIO 20.0 6 - 26 A/G RATIO 0.8 (L) 1.0 - 2.0 RATIO eGFR Non-Afr. Amer. >90 >90 ML/MIN/1.73 M2 eGFR Afr. Amer. >90 >90 ML/MIN/1.73 M2 MAGNESIUM Collection Time: 03/19/21 5:45 AM Result Value Ref Range MAGNESIUM 2.0 1.8 - 2.4 MG/DL Imaging & Other Studies CT ABD+PEL W IV CON ONLY Addendum Date: 03/18/2021 ADDENDUM: I reviewed the findings with Dr. Barajas at 1158 hours. Referred By: LAURI ALANIS Interpreted By: Norman Smallwood, 112:00 PM Result Date: 03/18/2021 IMAGING STUDIES: CT ABD+PEL W CON [...] control with radiation dose reduction. CHEST: No acuteinfiltrate or consolidation in the lung bases. Minimal [...] to perforated diverticulum. No appendicitis. MUSCULOSKELETAL: Degenerative changesspine, pelvis, and hips. Spinal degenerative changes greatest at L5-S1 level. IMPRESSION: Abdominal free air consistent with bowel perforation. Approximately 3 cm x 3.7 cm densestool ball in the sigmoid colon near the area of inflammation and air. Several sigmoid diverticula also in the region suggesting the source may be perforated diverticulum. Air tracking in the mesentery to the upper abdomen including subdiaphragmatic space. I discussed findings with Lauri Alanis in the emergency department at 1120 hours. Referred By: LAURI ALANIS Interpreted By: Norman Smallwood, 03/18/2021 11:08 AM XR CHEST PORTABLE Result Date: 03/19/2021 EXAMINATION: CHEST X-RAY ONE VIEW EXAM TIME: 0159 hours. COMPARISON: None available HISTORY: NG tube placement. FINDINGS: A single portable AP view of the chest is submitted for evaluation. Endogastric tube placement with tip and side port within the proximal stomach. The heart is within normal limits in size. Pulmonary vascularity is within normal limits. The lungs are well expanded without focal airspace consolidation. No pleural effusions. No pneumothorax. IMPRESSION: No acute cardiopulmonary disease. Endogastric tube placement, as detailed. Referred By: Interpreted By: Mahi Ortez MD, 03/19/2021 1:21 AM No results found for this visit on 03/18/21. Assessment & Plan Perforated sigmoid diverticulitis As noted on imaging with free air Continue IV antibiotics with Zosyn Watch for improvement in abdominal pain Continue to monitor bowel movements Monitor for change in condition Consider change in antibiotics or adjunct therapy NPO, will advance diet slowly per general surgery Pain control and antiemetics If patient requires longer than 3 or 4 days of n.p.o. status, consider PPN/TPN HLD Continue statin RANDY History of Monitor for drop in saturations and provide supplemental O2 as needed Consider CPAP/BIPAP if appropriate Anemia Likely due to acute blood loss or dilutional changes Hemoglobin remain stables Monitor trend of H&H Consider blood transfusion if warranted Make adjustments as necessary Nicotine dependence Patient is a daily smoker Monitor for signs of withdrawal Nicotine patch daily or as needed VTE Prophylaxis Heparin SQ CODE STATUS: Full ADMISSION STATUS: Inpatient During evaluation and management, personal protective equipment was used and reasonable measures were taken to reduce spread based on the current recommendations from the CDC and WHO SEAN MARQUEZ APRN 03/19/2021 11:36 AM Cosigned by Lita Hu MD at 03/19/2021 12:48 PM CDT Associated attestation - Lita Hu MD - 03/19/2021 12:48 PM CDT I have seen and examined the patient, and discussed the plan of care with the Advanced Provider. I reviewed their note and agree with the findings and plan of care, as above. LITA HU MD documented in this encounter Nursing Notes * Violet Rinaldi RN - 03/23/2021 12:45 PM CDT Discharge instructions reviewed with pt and . Outpt XR Cystogram scheduled for pt prior to discharge. All questions answered. [facility] home health to see pt tomorrow. * Violet Rinaldi RN - 03/23/2021 10:15 AM CDT Pt and instructed on care of JITENDRA drain and given instruction on measuring/documenting output for Dr follow up. Instruction provided on mullins cath care and how to change to leg bag, securement device and how to empty catheter. Leg bag and securement device provided to pt for home. Colostomy instructions reinforced regarding 2 piece system, cutting to fit, skin prep, how to emptybag. Pt provided with measuring device for cutting ring, extra bag and ring, and skin prep pads. [facility] health and Dr Sloan. * Violet Rinaldi RN - 03/22/2021 3:30 PM CDT Pt and seen by Maria Fernanda Jorge for Ostomy teaching * Violet Rinaldi RN - 03/22/2021 10:26 AM CDT Wound care nurse Maria Fernanda Jorge contacted via doc halo regarding consult for ostomy teaching. * Bianca Barclay RN - 03/18/2021 4:[address] Sloan asked for Bianca Barclay RN to fill the bladder with 200-300 ml sterile water. RN instilled 240 ml Then requested for the water to be removed. * Bianca Barclay RN - 03/18/2021 3:[address] Sloan decided to go from Laparoscopic to open at this time documented in this encounter OR Notes * Op Note - Margarita Sloan MD - 03/18/2021 6:16 PM CDT General Surgery Operative Note Patient name: Mandie Cotter Date of : 1955 Date of Surgery: 03/18/2021 Surgeon: Margarita Sloan MD Ballistics Teacher: Arthurner/Help Start: Cindy Hammond RN Circulating Nurse 1: Bianca Barclay RN Scrub Person 1: Susan Mcpherson, TALENT ACQUISITION SOURCER Scrub Person 2: Bharti Chávez LPN Pre-Op Diagnosis: perforated sigmoid diverticulitis with free air Post-Op Diagnosis: Same Procedure: Diagnostic laparoscopy, exploratory laparotomy with sigmoidectomy and colostomy (Hudson's procedure), suture repair of bladder, Briana VAC placement. Anesthesia Type: General Anesthesia Team: ANODE BUILDER: Jolene Cross CRNA; David Ha CRNA EBL: Less than 30 mL Complications: None Drains: 15 Moldovan Easton-Srinivasan drain Indication: Mandie Cotter is a 65-year-old male with sigmoid diverticulitis and free air and peritonitis on physical examination. Diagnostic laparoscopy, possible exploratory laparotomy, sigmoidectomy with end colostomy was indicated. Risks, benefits, alternatives and complications including butnot limited to bleeding, infection, incisional hernia, bowel obstruction, injury to adjacent structures such as bladder, ureter, bowel, spleen or other intra-abdominal viscera, wound healing issues, issues with ostomy, fistula, leak, abscess formation, DVT, pulmonary or cardiac complications, possible need for further procedure or surgery. He is aware that he will require another surgery to reanas tomose the colon. He verbalized understanding and wishes to proceed. Informed consent obtained. Anesthesia performed an epidural before hand. Description of procedure: After informed consent was obtained, patient was taken to the operating room and general endotracheal anesthesia was induced. Ancef and Flagyl were administered. Mullins catheter and NG tube were placed. Patient was placed in the lithotomy position. The abdomen and perianal area was prepped and draped in usual sterile manner. Patient has had a previous laparoscopic left inguinal hernia repair and aopen right inguinal hernia repair. He had a supra umbilical transverse incision. Local anesthetic was infiltrated in this area and a small transverse incision was made at the site of the previous incision and carried down to fascia. There was previous suture material noted. The fascia was elevated b etween clamps and incised under direct vision. A 10 mm Campos trocar was then placed on a direct visualization. A 5 mm right lower quadrant incision was then made and a 5 mm port placed. A 10 mm 30 degree laparoscope was then introduced and the abdominal cavity was visualized. There was a good amount of adhesion between the sigmoid colon and the anterior abdominal wall and the bladder area. Therealso appear to be adhesions to the left inguinal canal area with suture material in this area. I tried to take down some of the adhesions laparoscopically however the adhesions were quite dense. There was pus in the pelvis at the sacral promontory area. In the mid sigmoid colon, there was a masslike area with thin wall with exudate. The entire abdominal cavity was grossly inspected and no other abnormalities were noted. The liver appeared somewhat enlarged and cirrhotic appearing. At this time I decided to convert to open given the dense adhesion to the bladder area, anterior abdominal wall and the left inguinal area. The periumbilical incision was then extended to the suprapubic area. At this time, the laparoscope was still in the abdomen and the incision was performed under direct visualization. Dissection was carried down to fascia using electrocautery and the fascia was carefully entered under direct visualization. Towards the suprapubic area, there was suture material with fine wire type material which was densely adhesed to this area. This area was carefully opened however with the adhesions in the pelvic area, there appeared to be a small (less than 1 cm hole in the bladder). This was repaired in 2 layers with mucosal bites of 3-0 chromic in a locking manner and a mucosal layer repair used to imbricate the mucosal repair in a locking manner using 2-0 chromic. After bladder repair, the bladder was filled with approximately 280 mL of sterile water and a leak test was performed and there was no leak noted. The sterile water was then removed. The urine throughout the entire case was clear and adequate. The patient was placed in slight Trendelenburg with the left side down. The small bowel was packed away towards the right upper quadrant. The adhesions of the sigmoid colon to the anterior abdominal wall and bladder were carefully taken down without any injuries. Some pus was seen in the pelvis around the sacral promontory and cultures were obtained and this was suctioned. There was exudate throughout the area. After taken down the adhesions of the sigmoid colon to the anterior abdominal wall and the bladder area and the left inguinal canal, I noticed some suture material from his previous hernia repair. Also on the right side of the anterior abdominal wall, there was a tubular suture type m aterial x2 that was behind the peritoneum. This must of been from his previous inguinal hernia repair none side. After taking down the pelvic adhesions using electrocautery, I did notice the area of perforation in the mid sigmoid colon with what appeared to be a very large stool ball occluding the entire lumen and what appeared to be very large diverticulum that was perforated and completely impacted with stool in the entire lumen in that area impacted with stool. There was fibrinous exudate at that large diverticulum and the colon in this area was very thin. I carefully took down the white line of Toldt toward the splenic flexure. I then took down the mesentery using a combination of vascular white load and harmonic staying close to the colon. I did not feel any mass or any other abnormalities in the colon other than this perforated diverticulum. I then picked my point of transection close to the sacral promontory. The sigmoid colon was transected in this area using a green load stapler. The staple line was tacked using 1-0 Prolene suture. There was severe diverticulosis noted in the sigmoid colon and descending colon with a good amount of small stool balls throughout the colon. I pick my point of transection proximally and the proximal colon was transected using a blue load stapler. The specimen measured 23 cm and the area of inflammation/exudative area measured 5 x 4 cm (area of perforated tic, thinned out wall, with a small perfo ration). The proximal staple line was then held in place using a Dandridge. An elliptical incision was then made in the left lower quadrant in an area that I had premarked prior to surgery. Dissection was carried down to subcutaneous tissue and a cruciate incision was then made in the muscle. The proximal and of the descending colon was then brought out through this incision and the correct orientation. The abdomen was then copiously irrigated using warm normal saline containing Ancef. A 15 Moldovan Easton-Srinivasan drain was then placed through the existing 5 mm right lower quadrant portdown into the pelvis and the left paracolic gutter. It was sutured to the skin using 2-0 nylon and eventually placed to bulb suction at the end of the case. The midline fascia was then approximated using #1 looped PDS x2, and from the caudad and cephalad aspects of the incision and tied in the middle. The wound was irrigated, subcutaneous tissue approximated using interrupted 2-0 Vicryl and skin was stapled at the end of the case. The left lower quadrant and colostomy was then matured as follows (the lumen of the colon appeared smaller than usual): The staple line was transected using Metzenbaum scissors and the 4 corners weresutured using 2-0 Vicryl (sutured from the dermis, serosa and then mucosa). The intervening areas were then sutured using 3-0 Vicryl (dermis to mucosa). I then introduced the finger into the colostomy past the fascial opening. Colostomy bag was applied, Briana VAC applied to the midline and abdominal binder placed. NG tube and Mullins were kept in place. Sponge, needle and instrument count were correct at the end of the case. Patient tolerated procedure well was sent to the postanesthesia care unit in stable condition. Margarita Sloan MD 03/18/2021 documented in this encounter Plan of Treatment Upcoming Encounters Date Type Department Care Team (Late st Contact Info) Description 01/27/2025 7:00 AM CDT Office Visit [facility] - [place] [address] [place] [address] [place] [address] [place] [address] 10/22/2025 9:15 AM MAJOR APPLIANCE ASSEMBLY SUPERVISOR Office Visit [facility] [id number] Mily Gan MD [address] [address] documented as of this encounter Procedures Procedure Name Priority Date/Time Associated Diagnosis Comments BASIC METABOLIC PANEL Routine 03/22/2021 5:00 AM CDT CBC W/DIFF AUTOMATED Routine 03/22/2021 5:00 AM CDT MAGNESIUM Routine 03/22/2021 5:00 AM CDT BASIC METABOLIC PANEL Routine 03/21/2021 2:55 AM CDT CBC W/DIFF AUTOMATED Routine 03/21/2021 2:55 AM CDT PHOSPHORUS, INORGANIC PHOSPHATE Routine 03/21/2021 2:55 AM CDT MAGNESIUM Routine 03/21/2021 2:55 AM CDT COMPREHENSIVE METABOLIC PANEL Routine 03/20/2021 5:15 AM CDT CBC W/DIFF AUTOMATED Routine 03/20/2021 5:15 AM CDT COMPREHENSIVE METABOLIC PANEL Routine 03/19/2021 5:45 AM CDT CBC W/DIFF AUTOMATED Routine 03/19/2021 5:45 AM CDT MAGNESIUM Routine 03/19/2021 5:45 AM CDT XR CHEST PORTABLE Today 03/19/2021 1:1 6 AM CDT CULTURE, ANAEROBIC Routine 03/18/2021 3: 53 PM CDT LAPAROSCOPY DIAGNOSTIC 03/18/2021 2:35 PM CDT perforated sigmoid diverticulitis with free air TYPE & SCREEN STAT 03/18/2021 2:33 PM CDT PATHOLOGY Routine 03/18/2021 7:06 AM CDT documented in this encounter Results * XR CYSTOGRAM (04/01/2021 11:39 AM CDT) Anatomical Region Laterality Modality Abdomen, Pelvis Radiographic Leola ging, Radiographic Imaging 04/01/2021 1:25 PM CDT Impressions 04/01/2021 1:30 PM CDT FINDINGS AND IMPRESSION: 1. ??After a anesthesia director image was obtained, the bladder was allowed to fill with Isovue-370 by gravity until the patient felt a full bladder sensation. Numerous images were acquired for the procedure in the AP and bilateral oblique projections. Final images were obtained after allowing the bladder to empty. 2. ??Travel Rn Or radiograph demonstrates the patient is status post midline laparotomy with an underlying drain traversing the pelvis. An indwelling Mullins catheter is in place. 3. ??Bladder capacity: 300 mL 4. ??The bladder fills with contrast without evidence of contrast extravasation. 5. ??A significant amount of residual contrast was noted in the bladder after it was allowed to drain into the collection bag through the indwelling Mullins catheter. Referred By: MARGARITA SLOAN Interpreted By: [...] mGy. FINDINGS AND IMPRESSION: 1. After a anesthesia director image was obtained, the bladder was allowed to fill withIsovue- 370 by gravity until the patient felt a full bladder sensation.Numerous images were acquired for the procedure in the AP and bilateraloblique projections. Final images were obtained after allowing the bladderto empty. 2. Travel Rn Or radiograph demonstrates the patient is status post midlinelaparotomy with an underlying drain traversing the pelvis. An indwellingFoley catheter is in place. 3. Bladder capacity: 300 mL 4. The bladder fills with contrast without evidence of contrastextravasation. 5. A significant amount of residual contrast was noted in the bladderafter it was allowed to drain into the collection bag through theindwelling Mullins catheter. Referred By: MARGARITA SLOAN Interpreted By: Moncho Cheng, 04/01/2021 1:25 PM Margarita Sloan MD FLUOROSCOPY Final Result * MAGNESIUM (03/22/2021 5:00 AM CDT) MAGNESIUM 1.9 1.8 - 2.4 MG/DL 03/22/2021 6:07 AM CDT [facility] 03/22/2021 5:00 AM CDT Lita Hu MD LABORATORY Final Result [facility] [address] [place] [address], [place] [phone] * (ABNORMAL) CBC W/DIFF AUTOMATED (03/22/2021 5:00 AM CDT) Pathologist [facility] WBC 8.4 4.8 - 10.8 x10'3/uL 03/22/2021 5:31 AM CDT [facility] RBC 3.87(L) 4.50 - 5.90 x10'6/uL 03/22/2021 5:31 AM CDT [facility] HGB 12.4(L) 13.5 - 17.5 G/DL 03/22/2021 5:31 AM CDT [facility] HCT 37.3(L) 41 - 53 % 03/22/2021 5:31 AM CDT [facility] MCV 96.4 80 - 100 FL 03/22/2021 5:31 AM CDT [facility] MCH 32.0 26.0 - 34.0 PG 03/22/2021 5:31 AM CDT [facility] MCHC 33.2 31.0 - 37.0 G/DL 03/22/2021 5:31 AM CDT [facility] RDW 12.9 11.5 - 14.5 % 03/22/2021 5:31 AM CDT [facility] PLT 225 150 - 350 x10'3/uL 03/22/2021 5:31 AM CDT [facility] CBC COMMENT AUTOMATED RBC MORPHOLOGY AND PLATELET EVALUATION NORMAL 03/22/2021 5:31 AM CDT [facility] NEUTROPHILS % 73.2(H) 50 - 70 % 03/22/2021 5:31 AM CDT [facility] LYMPHOCYTES % 16.9(L) 18 - 42 % 03/22/2021 5:31 AM CDT [facility] MONOCYTES % 8.7 2.0 - 11.0 % 03/22/2021 5:31 AM CDT [facility] EOSINOPHILS 0.8(L) 1.0 - 3.0 % 03/22/2021 5:31 AM CDT [facility] BASOPHILS 0.4 0.0 - 1.0 % 03/22/2021 5:31 AM CDT [facility] ABS. NEUTROPHILS TOTAL 6.11 1.69 - 7.81 x10'3/uL 03/22/2021 5:31 AM T [facility] 03/22/2021 5:00 AM CDT us Lita Hu MD LABORATORY Final Result [facility] [address] [place] [address], [place] [phone] * (ABNORMAL) BASIC METABOLIC PANEL (03/22/2021 5:00 AM CDT) [facility] GLUCOSE 97 70 - 99 MG/DL 03/22/2021 5:44 AM T [facility] BUN 6(L) 7 - 18 MG/DL 03/22/2021 5:44 AM T [facility] CREATININE S/P/B 0.80 0.7 - 1.3 MG/DL 03/22/2021 5:44 AM T [facility] SODIUM S/P/B 139 136 - 145 MMOL/L 03/22/2021 5:44 AM T [facility] POTASSIUM S/P/B 3.5 3.5 - 5.1 MMOL/L 03/22/2021 5:44 AM T [facility] CHLORIDE S/P/B 101 100 - 108 MMOL/L 03/22/2021 5:44 AM [facility] CO2 28.3 21 - 32 MMOL/L 03/22/2021 5:44 AM [facility] CALCIUM S/P/B 8.6 8.5 - 10.1 MG/DL 03/22/2021 5:44 AM [facility] ANION GAP 9.7 5 - 15 MMOL/L 03/22/2021 5:44 AM [facility] BUN CREATININE RATIO 7.5 6 - 26 03/22/2021 5:44 AM [facility] EGFR NON-AFR. AMER. >90 >90 ML/MIN/1.7 3 M2 03/22/2021 5:44 AM [facility] EGFR AFR. AMER. >90 >90 ML/MIN/1.7 3 M2 03/22/2021 5:44 AM T [facility] Comment: NOTE: eGFR is not calculated for patients <18 years of age. This is an estimated GFR (CKD EPI) and should not be used for calculating drug doses. 03/22/2021 5:00 AM CDT us Lita Hu MD LABORATORY Final Result Performing Organization Address [facility]/ZIP Co de Phone Number [facility] [address] [place] [address], [place] [phone] * (ABNORMAL) PHOSPHORUS, INORGANIC PHOSPHATE (03/21/2021 2:55 AM CDT) PHOSPHORUS 2.1(L) 2.5 - 4.9 MG/DL 03/21/2021 4:00 AM CDT [facility] 03/21/2021 2:55 AM CDT us Lita Hu MD LABORATORY Final Result Performing Organization Address [facility] Co de Phone Number [facility] [address] [place] [address], [place] [phone] * MAGNESIUM (03/21/2021 2:55 AM CDT) MAGNESIUM 2.0 1.8 - 2.4 MG/DL 03/21/2021 4:00 AM CDT [facility] 03/21/2021 2:55 AM CDT us Lita Hu MD LABORATORY Final Result Performing Organization Address [facility] Co de Phone Number [facility] [address] [place] [address], [place] [phone] * (ABNORMAL) CBC W/DIFF AUTOMATED (03/21/2021 2:55 AM CDT) WBC 8.6 4.8 - 10.8 x10'3/uL 03/21/2021 3:55 AM CDT [facility] RBC 3.58(L) 4.50 - 5.90 x10'6/uL 03/21/2021 3:55 AM CDT [facility] HGB 11.6(L) 13.5 - 17.5 G/DL 03/21/2021 3:55 AM CDT [facility] HCT 35.3(L) 41 - 53 % 03/21/2021 3:55 AM CDT [facility] MCV 98.6 80 - 100 FL 03/21/2021 3:55 AM CDT [facility] MCH 32.4 26.0 - 34.0 PG 03/21/2021 3:55 AM CDT [facility] MCHC 32.9 31.0 - 37.0 G/DL 03/21/2021 3:55 AM CDT [facility] RDW 13.6 11.5 - 14.5 % 03/21/2021 3:55 AM CDT [facility] PLT 182 150 - 350 x10'3/uL 03/21/2021 3:55 AM T [facility] CBC COMMENT AUTOMATED RBC MORPHOLOGY AND PLATELET EVALUATION NORMAL 03/21/2021 3:55 AM CDT [facility] NEUTROPHILS % 72.6(H) 50 - 70 % 03/21/2021 3:55 AM CDT [facility] LYMPHOCYTES % 19.2 18 - 42 % 03/21/2021 3:55 AM CDT [facility] MONOCYTES % 7.5 2.0 - 11.0 % 03/21/2021 3:55 AM CDT [facility] EOSINOPHILS 0.5(L) 1.0 - 3.0 % 03/21/2021 3:55 AM CDT [facility] BASOPHILS 0.2 0.0 - 1.0 % 03/21/2021 3:55 AM CDT [facility] ABS. NEUTROPHILS TOTAL 6.21 1.69 - 7.81 x10'3/uL 03/21/2021 3:55 AM CDT [facility] 03/21/2021 2:55 AM CDT Lita Hu MD LABORATORY Final Result [facility] [address] [place] [address], [place] [phone] * (ABNORMAL) BASIC METABOLIC PANEL (03/21/2021 2:55 AM CDT) GLUCOSE 122(H) 70 - 99 MG/DL 03/21/2021 4:06 AM CDT [facility] BUN 9 7 - 18 MG/DL 03/21/2021 4:06 AM T [facility] CREATININE S/P/B 0.70 0.7 - 1.3 MG/DL 03/21/2021 4:06 AM T [facility] SODIUM S/P/B 140 136 - 145 MMOL/L 03/21/2021 4:06 AM T [facility] POTASSIUM S/P/B 3.1(L) 3.5 - 5.1 MMOL/L 03/21/2021 4:06 AM CDT [facility] CHLORIDE S/P/B 106 100 - 108 MMOL/L 03/21/2021 4:06 AM T [facility] CO2 28.0 21 - 32 MMOL/L 03/21/2021 4:06 AM T [facility] CALCIUM S/P/B 7.7(L) 8.5 - 10.1 MG/DL 03/21/2021 4:06 AM T [facility] ANION GAP 6.0 5 - 15 MMOL/L 03/21/2021 4:06 AM CDT [facility] BUN CREATININE RATIO 12.9 6 - 26 03/21/2021 4:06 AM T [facility] EGFR NON-AFR. AMER. >90 >90 ML/MIN/1.7 3 M2 03/21/2021 4:06 AM T [facility] EGFR AFR. AMER. >90 >90 ML/MIN/1.7 3 M2 03/21/2021 4:06 AM T [facility] Comment: NOTE: eGFR is not calculated for patients <18 years of age. This is an estimated GFR (CKD EPI) and should not be used for calculating drug doses. 03/21/2021 2:55 AM CDT Lita Hu MD LABORATORY Final Result [facility] [address] [place] [id number], [place] [phone] * (ABNORMAL) COMPREHENSIVE METABOLIC PANEL (03/20/2021 5:15 AM CDT) [facility] GLUCOSE 213(H) 70 - 99 MG/DL 03/20/2021 6:01 AM CDT [facility] BUN 17 7 - 18 MG/DL 03/20/2021 6:01 AM T [facility] CREATININE S/P/B 0.80 0.7 - 1.3 MG/DL 03/20/2021 6:01 AM T [facility] SODIUM S/P/B 142 136 - 145 MMOL/L 03/20/2021 6:01 AM T [facility] POTASSIUM S/P/B 3.7 3.5 - 5.1 MMOL/L 03/20/2021 6:01 AM [facility] CHLORIDE S/P/B 108 100 - 108 MMOL/L 03/20/2021 6:01 AM [facility] CO2 29.1 21 - 32 MMOL/L 03/20/2021 6:01 AM [facility] CALCIUM S/P/B 7.6(L) 8.5 - 10.1 MG/DL 03/20/2021 6:01 AM [facility] BILIRUBIN TOTAL S/P/B 0.8 0.2 - 1.2 MG/DL 03/20/2021 6:01 AM [facility] Comment: THIS ASSAY IS NOT RECOMMENDED FOR PATIENTS UNDERGOING TREATMENT WITH ELTROMBOPAG DUE TO THE POTENTIAL FOR FALSELY ELEVATED RESULTS. TOTAL PROTEIN S/P/B 6.4 6.4 - 8.2 G/DL 03/20/2021 6:01 AM [facility] ALBUMIN S/P/B 2.7(L) 3.4 - 5.0 G/DL 03/20/2021 6:01 AM [facility] AST 36 15 - 37 U/L 03/20/2021 6:01 AM [facility] ALT 33 16 - 60 U/L 03/20/2021 6:01 AM [facility] ALKALINE PHOSPHATASE S/P/B 33(L) 50 - 136 U/L 03/20/2021 6:01 AM [facility] ANION GAP 4.9(L) 5 - 15 MMOL/L 03/20/2021 6:01 AM [facility] BUN CREATININE RATIO 21.2 6 - 26 03/20/2021 6:01 AM [facility] A/G RATIO 0.7(L) 1.0 - 2.0 RATIO 03/20/2021 6:01 AM CDT [facility] EGFR NON-AFR. AMER. >90 >90 ML/MIN/1.7 3 M2 03/20/2021 6:01 AM CDT [facility] EGFR AFR. AMER. >90 >90 ML/MIN/1.7 3 M2 03/20/2021 6:01 AM CDT [facility] Comment: NOTE: eGFR is not calculated for patients <18 years of age. This is an estimated GFR (CKD EPI) and should not be used for calculating drug doses. 03/20/2021 5:15 AM CDT Sean Marquez APRN LABORATORY Final Re sult [facility] [address] [place] [address], * (ABNORMAL) CBC W/DIFF AUTOMATED (03/20/2021 5:15 AM CDT) WBC 11.2(H) 4.8 - 10.8 x10'3/uL 03/20/2021 5:46 AM CDT [facility] RBC 3.44(L) 4.50 - 5.90 x10'6/uL 03/20/2021 5:46 AM CDT [facility] HGB 11.1(L) 13.5 - 17.5 G/DL 03/20/2021 5:46 AM CDT [facility] HCT 34.1(L) 41 - 53 % 03/20/2021 5:46 AM CDT [facility] MCV 99.1 80 - 100 FL 03/20/2021 5:46 AM CDT [facility] MCH 32.3 26.0 - 34.0 PG 03/20/2021 5:46 AM CDT [facility] MCHC 32.6 31.0 - 37.0 G/DL 03/20/2021 5:46 AM CDT [facility] RDW 13.6 11.5 - 14.5 % 03/20/2021 5:46 AM CDT [facility] PLT 165 150 - 350 x10'3/uL 03/20/2021 5:46 AM CDT [facility] CBC COMMENT AUTOMATED RBC MORPHOLOGY AND PLATELET EVALUATION NORMAL 03/20/2021 5:46 AM CDT [facility] NEUTROPHILS % 80.1(H) 50 - 70 % 03/20/2021 5:46 AM CDT [facility] LYMPHOCYTES % 12.8(L) 18 - 42 % 03/20/2021 5:46 AM CDT [facility] MONOCYTES % 7.0 2.0 - 11.0 % 03/20/2021 5:46 AM CDT [facility] EOSINOPHILS 0.0(L) 1.0 - 3.0 % 03/20/2021 5:46 AM CDT [facility] BASOPHILS 0.1 0.0 - 1.0 % 03/20/2021 5:46 AM CDT [facility] ABS. NEUTROPHILS TOTAL 9.00(H) 1.69 - 7.81 x10'3/uL 03/20/2021 5:46 AM T [facility] 03/20/2021 5:15 AM CDT us Sean Marquez APRN LABORATORY Final Re sult [facility] [address] [place] [address], [place] [phone] * MAGNESIUM (03/19/2021 5:45 AM CDT) MAGNESIUM 2.0 1.8 - 2.4 MG/DL 03/19/2021 7:12 AM CDT [facility] 03/19/2021 5:45 AM CDT us Margarita Sloan MD LABORATORY Final Result [facility] [address] [place] [address], [place] [phone] * (ABNORMAL) COMPREHENSIVE METABOLIC PANEL (03/19/2021 5:45 AM CDT) GLUCOSE 153(H) 70 - 99 MG/DL 03/19/2021 7:12 AM CDT [facility] BUN 16 7 - 18 MG/DL 03/19/2021 7:12 AM CDT [facility] CREATININE S/P/B 0.80 0.7 - 1.3 MG/DL 03/19/2021 7:12 AM CDT [facility] SODIUM S/P/B 137 136 - 145 MMOL/L 03/19/2021 7:12 AM CDT [facility] POTASSIUM S/P/B 4.1 3.5 - 5.1 MMOL/L 03/19/2021 7:12 AM CDT [facility] CHLORIDE S/P/B 104 100 - 108 MMOL/L 03/19/2021 7:12 AM CDT [facility] CO2 25.3 21 - 32 MMOL/L 03/19/2021 7:12 AM CDT [facility] CALCIUM S/P/B 7.9(L) 8.5 - 10.1 MG/DL 03/19/2021 7:12 AM CDT [facility] BILIRUBIN TOTAL S/P/B 1.3(H) 0.2 - 1.2 MG/DL 03/19/2021 7:12 AM [facility] Comment: THIS ASSAY IS NOT RECOMMENDED FOR PATIENTS UNDERGOING TREATMENT WITH ELTROMBOPAG DUE TO THE POTENTIAL FOR FALSELY ELEVATED RESULTS. TOTAL PROTEIN S/P/B 6.6 6.4 - 8.2 G/DL 03/19/2021 7:12 AM [facility] ALBUMIN S/P/B 3.0(L) 3.4 - 5.0 G/DL 03/19/2021 7:12 AM [facility] AST 30 15 - 37 U/L 03/19/2021 7:12 AM [facility] ALT 32 16 - 60 U/L 03/19/2021 7:12 AM [facility] ALKALINE PHOSPHATASE S/P/B 31(L) 50 - 136 U/L 03/19/2021 7:12 AM [facility] ANION GAP 7.7 5 - 15 MMOL/L 03/19/2021 7:12 AM [facility] BUN CREATININE RATIO 20.0 6 - 26 03/19/2021 7:12 AM [facility] A/G RATIO 0.8(L) 1.0 - 2.0 RATIO 03/19/2021 7:12 AM [facility] EGFR NON-AFR. AMER. >90 >90 ML/MIN/1.7 3 M2 03/19/2021 7:12 AM [facility] EGFR AFR. AMER. >90 >90 ML/MIN/1.7 3 M2 03/19/2021 7:12 AM [facility] Comment: NOTE: eGFR is not calculated for patients <18 years of age. This is an estimated GFR (CKD EPI) and should not be used for calculating drug doses. 03/19/2021 5:45 AM CDT us Margarita Sloan MD LABORATORY Final Result [facility] [address] [place] [address], [place] [phone] * (ABNORMAL) CBC W/DIFF AUTOMATED (03/19/2021 5:45 AM CDT) WBC 9.8 4.8 - 10.8 x10'3/uL 03/19/2021 7:03 AM CDT [facility] RBC 3.77(L) 4.50 - 5.90 x10'6/uL 03/19/2021 7:03 AM CDT [facility] HGB 12.0(L) 13.5 - 17.5 G/DL 03/19/2021 7:03 AM CDT [facility] HCT 36.5(L) 41 - 53 % 03/19/2021 7:03 AM CDT [facility] MCV 96.8 80 - 100 FL 03/19/2021 7:03 AM CDT [facility] MCH 31.8 26.0 - 34.0 PG 03/19/2021 7:03 AM CDT [facility] MCHC 32.9 31.0 - 37.0 G/DL 03/19/2021 7:03 AM CDT [facility] RDW 13.3 11.5 - 14.5 % 03/19/2021 7:03 AM CDT [facility] PLT 195 150 - 350 x10'3/uL 03/19/2021 7:03 AM CDT [facility] NEUTROPHILS % 88.7(H) 50 - 70 % 03/19/2021 7:06 AM CDT [facility] LYMPHOCYTES % 6.4(L) 18 - 42 % 03/19/2021 7:06 AM CDT [facility] MONOCYTES % 4.9 2.0 - 11.0 % 03/19/2021 7:06 AM CDT [facility] EOSINOPHILS 0.0(L) 1.0 - 3.0 % 03/19/2021 7:06 AM CDT [facility] BASOPHILS 0.0 0.0 - 1.0 % 03/19/2021 7:06 AM CDT [facility] ABS. NEUTROPHILS TOTAL 8.69(H) 1.69 - 7.81 x10'3/uL 03/19/2021 7:06 AM CDT [facility] PLT MORPH. 1+ 03/19/2021 7:06 AM CDT [facility] Comment:GIANT PLATELETS RBC MORPHOLOGY NORMAL 03/19/2021 7:06 AM CDT [facility] 03/19/2021 5:45 AM CDT Margarita Sloan MD LABORATORY Final Result [facility] [address] [place] [address], [place] [phone] * XR CHEST PORTABLE (03/19/2021 1:16 AM CDT) Anatomical Region Laterality Modality Chest Radiographic Leola ging 03/19/2021 1:21 AM CDT Impressions 03/19/2021 1:21 AM CDT IMPRESSION: No acute cardiopulmonary disease. Endogastric tube placement, as detailed. Referred By: ?? Interpreted By: Mahi Ortez MD, 03/19/2021 1:21 AM Narrative 03/19/2021 1:21 AM CDT EXAMINATION: CHEST X-RAY ONE VIEW EXAM TIME: 0159 hours. COMPARISON: None available HISTORY: NG tube placement. FINDINGS: A single portable AP view of the chest is submitted for evaluation. Endogastric tube placement with tip and side port within the proximal stomach. The heart is within normal limits in size. Pulmonary vascularity is within normal limits. The lungs are well expanded without focal airspace consolidation. No pleural effusions. No pneumothorax. Procedure Note Eleuterio Ortez MD - 03/19/2021 EXAMINATION: CHEST X-RAY ONE VIEW EXAM TIME: 0159 hours. COMPARISON: None available HISTORY: NG tube placement. FINDINGS: A single portable AP view of the chest is submitted for evaluation.Endogastric tube placement with tip and side port within the proximalstomach. The heart is within normal limits in size. Pulmonary vascularityis within normal limits. The lungs are well expanded without focalairspace consolidation. No pleural effusions. No pneumothorax. IMPRESSION: No acute cardiopulmonary disease. Endogastric tube placement, as detailed. Referred By: Interpreted By: Mahi Ortez MD, 03/19/2021 1:21 AM Lita Hu MD GENERAL IMAGING Final Result * (ABNORMAL) CULTURE, ANAEROBIC (03/18/2021 3:53 PM CDT) SPEC DESCRIPTION PERITONEAL FLUID 03/20/2021 9:59 AM CDT [facility] SPECIAL REQUESTS SWAB 03/20/2021 9:59 AM CDT [facility] GRAM STAIN RESULT NO WHITE BLOOD CELLS SEEN 03/19/2021 12:10 PM CDT [facility] GRAM STAIN RESULT NO ORGANISMS SEEN 03/19/2021 12:10 PM CDT [facility] CULTURE RESULT SPARSE GROWTH OF ENTEROBACTER CLOACAE COMPLEX (A) 03/24/2021 12:36 PM CDT [facility] CULTURE RESULT SPARSE GROWTH OF BACTEROIDES THETAIOTAOMICRON BETA LACTAMASE POSITIVE SUSCEPTIBILTY NOT ROUTINELY PERFORMED. SAVING ISOLATE FOR 5 DAYS. CONTACT MICROBIOLOGY DEPARTMENT IF FURTHER WORKUP IS INDICATED. (A) 03/24/2021 12:36 PM CDT [facility] CULTURE RESULT NOTE: ANAEROBIC CULTURES ARE ROUTINELY SCREENED FOR BOTH AEROBIC AND ANAEROBIC ORGANISMS. 03/24/2021 12:36 PM CDT [facility] Body fluid specimen (specimen) PERITONEAL FLUID SPECIMEN / Unknown 03/18/2021 3:53 PM CDT Narrative Organism Antibiotic Method Susceptibility Enterobacter cloacae complex CEFTRIAXONE KAYLEN (MICI) <=1: Sensitive Enterobacter cloacae complex CEFTAZIDIME KAYLEN (MICI) <=1: Sensitive Enterobacter cloacae complex CEFAZOLIN KAYLEN (MICI) >=64: Resistant Enterobacter cloacae complex GENTAMICIN KAYLEN (MICI) <=1: Sensitive Enterobacter cloacae complex LEVOFLOXACIN KAYLEN (MICI) <=0.12: Sensitive Enterobacter cloacae complex PIPRACIL/TAZO KAYLEN (MICI) <=4: Sensitive Enterobacter cloacae complex TRIMETH-SULFAMETH. KAYLEN (M ICI) <=20: Sensitive Margarita Sloan MD MICROBIOLOGY - GENERAL ORDER ZAMZAM Final Result [facility] [address] [place] [address], [place] [phone] * TYPE & SCREEN (03/18/2021 2:33 PM CDT) ABO/RH O POSITIVE 03/18/2021 3:52 PM CDT [facility] ANTIBODY SCREEN NEGATIVE 03/18/2021 4:14 PM CDT [facility] SAMPLE EXPIRATION 03/21/2021,2 359 03/18/2021 3:52 PM CDT [facility] 03/18/2021 2:33 PM CDT Margarita Sloan MD BLOOD BANK TEST ORDERABLES F inal Result [facility] () [facility] [address] [place] [address], * Pathology (03/18/2021 7:06 AM CDT) COPATH REPORT ?[facility] ? [address] ?[place], [place] [address] ? [phone] ? Department of Pathology ? Pathology Report ? Surgical Pathology Report Patient Name: MANDIE COTTER ? : 1955 (Age: 65) ? Location: [id number] Gender: M ?Collected Date: 03/18/2021 Med Rec #: [id number] ?Date Received: 03/19/2021 Date Reported: 03/22/2021 Provider: LITA HU MD ?SEAN MARQUEZ APRN Specimen(s) Sigmoid colon Final Pathologic Diagnosis SIGMOID COLON, RESECTION: ? - ? PERFORATED DIVERTICULITIS WITH ACUTE SEROSITIS AND ABSCESS ? - ? VIABLE RESECTION MARGINS WITH SEROSITIS ? - ? NO DYSPLASIA OR MALIGNANCY Electronically Signed Out ? GARY OLIVAS MD Pathologist OJL:pb Microscopic Description: Microscopic examination substantiates the above captioned diagnosis. Clinical History Perforated sigmoid diverticulitis with free air Gross Description The specimen is received in a single formalin-filled container labeled with the patient's name (Mandie Cotter), date, and sigmoid colon. ??it contains a portion of sigmoid colon measuring 15.5 cm in length x 2.2 cm in diameter. ??The serosal surface is predominantly smooth and warren. ??There is a focal area of warren-green exudate present 4.5 cm from the nearest margin. ??The specimen is opened to show warren-pink mucosa with normal folds. ??There are multiple diverticula present. ??There is one large diverticula associated with the area of exudate. ??This diverticula measures 2.0 x 3.2 x 2.1 cm. ??This diverticula is associated with a small pinprick size perforation. ??No other perforations are identified. ??A second smaller outpouching is identified 3 cm from the opposite margin. ??This one shows no evidence of perforation or exudate but does show flattened mucosa in the area. ??More typical small diverticula are not identified. ??A couple possible lymph nodes are identified in the pericolonic soft tissue. ?? Sections are submitted as follows: 1,2 ? Margins 3,4 ? Largest diverticula with perforation 5,6 ? Smaller diverticula 7 ? Uninvolved colonic mucosa 8 ? Possible lymph nodes ?SO/plb :pb Billing Fee Code(s): 67214 [facility] Tissue specimen (specimen) COLON STRUCTURE / Unknown 03/18/2021 4:54 PM CDT Comment:No formalin on speci men us Margarita Sloan MD PATHOLOGY/CYTOLOGY ORDERABLE S Final Result [facility] [address] [place] [address], [place] [phone] documented in this encounter Visit Diagnoses Diagnosis Perforated diverticulum- Primary Perforated diverticulum Bowel perforation (CMS/HCC HHS/HCC) Perforation of intestine Perforated diverticulum Bowel perforation (CMS/HCC HHS/HCC) Perforation of intestine documented in this encounter Admitting Diagnoses Diagnosis Perforated diverticulum documented in this encounter Administered Medications Inactive Administered Medications - up to 3 most recent administrations Medication Order MAR Action Action Date Dose Rate Site ceFAZolin (ANCEF) 2 g in sterile water 20 mL IV 2 g, Intravenous, at 240 mL/hr, Once, 1 dose, On Yamilex 03/18/21 at 1500 Given 03/18/2021 2:15 PM CDT 2 g 240 mL/hr dextrose 5 %-sodium chloride 0.9 % infusion at 125 mL/hr, Intravenous, Continuous, Starting on Mon03/19/21 at 1200, Until Mon03/21/21 at 0829 New Bag 03/21/2021 4:46 AM CDT 125 mL/hr New Bag 03/20/2021 8:14 PM CDT 125 mL/hr New Bag 03/20/2021 11:01 AM CDT 125 mL/hr heparin (porcine) injection 5,000 Units 5,000 Units, Subcutaneous, Every 12 hours scheduled (2 times per day), First dose on Mon03/19/21 at 2100, Until Discontinued Given 03/23/2021 9:30 AM CDT 5,000 Units Right Lower Abdomen Given 03/22/2021 9:19 PM CDT 5,000 Units R ight Lower Abdomen Given 03/22/2021 8:47 AM CDT 5,000 Units R ight Lower Abdomen HYDROmorphone (DILAUDID) injection 0.2 mg 0.2 mg, Intravenous, Every 4 hours PRN, Moderate pain (Scale 4 - 7), Starting on 03/20/21 at 1108, Until 03/23/21 at 1518, Administer slowly over at least 2-3 minutes.Indications:Perforated diverticulum Given 03/20/2021 2:21 PM C DT 0.2 mg HYDROmorphone (DILAUDID) injection 0.5 mg 0.5 mg, Intravenous, Every 4 hours PRN, Severe pain (Scale 8 - 10), Starting on 03/20/21 at 1108, Until 03/23/21 at 1518, Administer slowly over at least 2-3 minutes.Indications:Perforated diverticulum Given 03/22/2021 9:34 PM C DT 0.5 mg Given 03/21/2021 8:14 PM CDT 0.5 mg Given 03/20/2021 8:30 PM CDT 0.5 mg lactated ringers infusion at 100 mL/hr, Intravenous, Continuous, Starting on Mon03/21/21 at 0845, Until e 03/23/21 at 0938 New 03/22/2021 11:50 PM CDT 100 mL/hr New 03/22/2021 2:37 PM CDT 100 mL/hr New 03/22/2021 4:49 AM CDT 100 mL/hr meperidine (DEMEROL) 2 mg/mL in sodium chloride 0.9 % 250 mL epidural Epidural, Continuous, Starting on Yamilex 03/18/21 at 1645, Until 03/20/21 at 1028, *High Alert* New 03/19/2021 6:08 PM CDT 9 mL/hr New 03/18/2021 6:58 PM CDT 9 mL/hr metroNIDAZOLE (FLAGYL) IVPB 500 mg 500 mg, Intravenous, at 100 mL/hr, Once, 1 dose, On Yamilex 03/18/21 at 1500 New 03/18/2021 2:16 PM CDT 500 mg 100 mL/hr pantoprazole (PROTONIX) 40 mg in sodium chloride (PF) 0.9 % 10 mL IV 40 mg, Intravenous, Daily, First dose on Mon03/19/21 at 2000, Until Discontinued, Reconstitute each 40 mg vial with 10 mL normal saline to a final concentration of 4 mg/mL. Administer intravenously over a period of a least 2 minutes.Indications:Perforated diverticulum Given 03/23/2021 9:39 AM CDT 40 mg Given 03/22/2021 8:50 AM CDT 40 mg Given 03/21/2021 8:59 AM CDT 40 mg piperacillin-tazobactam (ZOSYN) 3.375 g in sodium chloride 0.9 % 50 mL IVPB 3.375 g, Intravenous, Administer over 240 Minutes, Every 8 hours, First dose on Yamilex 03/18/21 at 2100, Until Discontinued, Administer over 4 hours (extended infusion). New Bag 03/23/2021 4:52 AM CDT 3.375 g 12.5 mL/hr New Bag 03/22/2021 9:20 PM CDT 3.375 g 12.5 mL/hr New Bag 03/22/2021 1:46 PM CDT 3.375 g 12.5 mL/hr potassium chloride 10 mEq in SW 100 mL IVPB 10 mEq, Intravenous, Administer over 60 Minutes, Every hour scheduled, 6 doses, First dose on Mon03/21/21 at 0815, Last dose on Mon03/21/21 at 1300, Give total of 60 mEq MAX rate in peripheral line of 10 mEq per hour. New Bag 03/21/2021 3:51 PM CDT 10 mEq 100 mL/hr New Bag 03/21/2021 2:30 PM CDT 10 mEq 100 mL/hr New Bag 03/21/2021 1:02 PM CDT 10 mEq 100 mL/hr sodium chloride 0.9% infusion at 125 mL/hr, Intravenous, Continuous, Starting on Mon03/18/21 at 1415, Until Mon03/19/21 at 1139 New Bag 03/19/2021 5:36 AM CDT 125 mL/hr New Bag 03/18/2021 9:33 PM CDT 125 mL/hr documented in this encounter Active and Recently Administered Medications Times are shown in CDT. Scheduled Medication Order 03/21/2021 03/22/2021 03/23/2021 heparin (porcine) injection 5,000 Units(Linked Group 1) 5,000 Units, Subcutaneous, Every 12 hours scheduled (2 times per day), First dose on Mon03/19/21 at 2100, Until Discontinued 0900 (Given - Provider: Tonja Morales RN)1937 (Given - Provider: Ruma Treviño RN) 0847 (Given - Provider: Violet Rinaldi RN)211 (Given - Provider: Ruma Treviño RN) 0930 (Given - Provider: Violet Rinaldi RN) pantoprazole (PROTONIX) 40 mg in sodium chloride (PF) 0.9 % 10 mL IV 40 mg, Intravenous, Daily, First dose on Mon03/19/21 at 2000, Until Discontinued, Reconstitute each 40 mg vial with 10 mL normal saline to a final concentration of 4 mg/mL. Administer intravenously over a period of a least 2 minutes. 0859 (Given - Provider: Tonja Morales RN) 0850 (Given - Provider: Violet Rinaldi RN) 0939 (Given - Provider: Violet Rinaldi RN) piperacillin-tazobactam (ZOSYN) 3.375 g in sodium chloride 0.9 % 50 mL IVPB 3.375 g, Intravenous, Administer over 240 Minutes, Every 8 hours, First dose on Mon03/18/21 at 2100, Until Discontinued, Administer over 4 hours (extended infusion). 0037 (Infusion Stop Time - Provider: Gauri Romo RN)0446 (New Bag - Provider: Gauri Romo RN)1017 (Infusion Stop Time - Provider: Tonja Morales RN)1342 (New Bag - Provider: Tonja Morales RN)1814 (Infusion Stop Time - Provider: Tonja Morales RN)1938 (New Bag - Provider: Ruma Treviño RN)2343 (Infusion Stop Time - Provider: Ruma Treviño RN) 0449 (New Bag - Provider: Ruma Treviño RN)0819 (Infusion Stop Time - Provider: Violet Rinaldi RN)1346 (New Bag - Provider: Violet Rinaldi RN)1750 (Infusion Stop Time - Provider: Violet Rinaldi RN)2120 (New Bag - Provider: uRma Treviño RN) 0133 (Infusion Stop Time - Provider: Ruma Treviño RN)0452 (New Bag - Provider: Ruma Treviño RN)0938 (Infusion Stop Time - Provider: Violet Rinaldi RN)1300 (Canceled Entry - Provider: Automatic Discharge Provider - Comment: Automatically canceled at discontinue of medication order) potassium chloride 10 mEq in SW 100 mL IVPB (COMPLETED) 10 mEq, Intravenous, Administer over 60 Minutes, Every hour scheduled, 6 doses, First dose on Mon03/21/21 at 0815, Last dose on Mon03/21/21 at 1300, Give total of 60 mEq MAX rate in peripheral line of 10 mEq per hour. 0859 (New Bag - Provider: Tonja Morales RN)1021 (New Bag - Provider: Tonja Morales RN)1156 (Infusion Stop Time - Provider: Tonja Morales RN)1157 (New Bag - Provider: Tonja Morales RN)1301 (Infusion Stop Time - Provider: Tonja Morales RN)1302 (New Bag - Provider: Tonja Morales RN)1429 (Infusion Stop Time - Provider: Tonja Morales RN)1430 (New Bag - Provider: Tonja Morales RN)1531 (Infusion Stop Time - Provider: Tonja Morales RN)1551 (New Bag - Provider: Tonja Morales RN)1710 (Infusion Stop Time - Provider: Tonja Morales RN) Continuous Medication Order 03/21/2021 03/22/2021 03/23/2021 dextrose 5 %-sodium chloride 0.9 % infusion (CANCELED) at 125 mL/hr, Intravenous, Continuous, Starting on Mon03/19/21 at 1200, Until Mon03/21/21 at 0829 0446 (New Bag - Provider: Gauri Romo RN) lactated ringers infusion (CANCELED) at 100 mL/hr, Intravenous, Continuous, Starting on Mon03/21/21 at 0845, Until Mon03/23/21 at 0938 0856 (New Bag - Provider: Tonja Morales RN)1837 (New Bag - Provider: Tonja Morales RN) 6408 (New Bag - Provider: Ruma Treviño, GINA)8554 (New Bag - Provider: Delmy Shirley, GINA)7980 (New Bag - Provider: Ruma Treviño, GINA) PRN Medication Order 03/21/2021 03/22/2021 03/23/2021 acetaminophen (TYLENOL) tablet 650 mg 650 mg, Oral, Every 4 hours PRN, Mild pain (Scale 1 - 3), Headaches, Fever, greater than 101, Starting on Yamilex 03/18/21 at 1350, Until 03/23/21 at 1518, Maximum dose of acetaminophen is 4000 mg from all sources in 24 hours. HYDROmorphone (DILAUDID) injection 0.2 mg 0.2 mg, Intravenous, Every 4 hours PRN, Moderate pain (Scale 4 - 7), Starting on 03/20/21 at 1108, Until 03/23/21 at 1518, Administer slowly over at least 2-3 minutes. HYDROmorphone (DILAUDID) injection 0.5 mg 0.5 mg, Intravenous, Every 4 hours PRN, Severe pain (Scale 8 - 10), Starting on 03/20/21 at 1108, Until 03/23/21 at 1518, Administer slowly over at least 2-3 minutes. 2013 (Given - Provider: Ruma Treviño RN) 2133 (Given - Provider: Ruma Treviño, GINA) naLOXone (NARCAN) injection 0.4 mg 0.4 mg, Intravenous, As needed, Opioid reversal, Starting on Yamilex 03/18/21 at 1351, Until 03/23/21 at 1518 ondansetron (ZOFRAN) injection 4 mg 4 mg, Intravenous, Every 8 hours PRN, Nausea, Vomiting, Starting on Yamilex 03/18/21 at 1351, Until 03/23/21 at 1518, IV push over 2-5 minutes. Linked Groups Order Group 1: heparin (porcine) injection 5,000 UnitsJump to med 5,000 Units, Subcutaneous, Every 12 hours scheduled (2 times per day), First dose on Mon03/19/21 at 2100, Until Discontinued And Moderate Risk for VTE (COMPLETED) documented in this encounter Care Teams Senior Cobol Developer Relationship Specialty Start Date End Date Jeremy Castanon MD PCP - General INTERNAL MEDICINE 01/15/20 02/09/23 Moraima Toledo, RN [address] [place] [address] Bit Shaver (Ambulatory) REGISTERED NURSE 03/19/21 documented as of this encounter
--- OUTSIDE RECORDS SUMMARY | 2024-11-02 08:12 | XMS_ITS | Encounter Summary ---
Author Organization [facility] Address [address] [place] [address]. [place], [place] [address] [place] [address] Care Team Providers Care Community Organization Director Name Role Phone Lorie Chan MD Primary Care Provider [phone] Moraima Toledo RN Unavailable [phone] Reason for Visit * Reason Onset Date Comments TCM 03/23/2021 Encounter Details Date Type Department Care Team (Late st Contact Info) Description 03/23/2021 Telephone [facility] Medical Group Family & Internal Medicine [address] [address] Antonia Zamora, HEALTH POLICY NURSE [address] [phone] TCM Social History Tobacco Use Types Packs/Day Years [...] on file 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 Being discharged today. * Niya Mckinley - 03/23/2021 10:53 AM CDT TCM from [facility] Gail DX Ruptured Bowel Adm 03/18/21 D/C 03/23/21 Appt 03/29@ [address] [place] [address]# [phone] documented in this encounter Plan of Treatment Upcoming Encounters Date Type Department Care Team (Late st Contact Info) Description 01/27/2025 7:00 AM CDT Office Visit [facility] Medical Group Family & Internal Medicine [facility] [address] [place] [address] [place] [address] [place], [place] [phone] 10/22/2025 9:15 AM AGRONOMY ADVISOR Office Visit [facility] [address] Mily Gan MD [address] [phone] documented as of this encounter Visit Diagnoses Not on filedocumented in this encounter Care Teams Community Organization Director Relationship Specialty Start Date End Date Lorie Chan MD PCP - General INTERNAL MEDICINE 01/15/20 02/09/23 Moraima Toledo, RN [address] [place] [address] Conventional Underwriter (Ambulatory) REGISTERED NURSE 03/19/21 documented as of this encounter
--- OUTSIDE RECORDS SUMMARY | 2024-11-02 08:12 | XMS_ITS | Encounter Summary ---
Author Organization [facility] Address [address] [place] [address]. [place] [address] [place] [address] Care Team Providers Care Store Group Manager Name Role Phone Lorie Chan MD Primary Care Provider [phone] Moraima Toledo RN Unavailable [phone] Reason for Visit * Reason Onset Date Comments Advise 03/22/2021 Encounter Details Date Type Department Care Team (Late st Contact Info) Description 03/22/2021 Telephone [facility] Home Care [facility] [address] [facility] [address] [place] [address] [place] [address] [place] [address] Advise Social History Tobacco Use Types Packs/Day Years [...] on file 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 Thanks * Antonia Qureshi RN - 03/22/2021 2:42 PM CDT We have a referral on Natan, will Dr Lorie Chan follow for home care? Thank you Radha [facility] Homecare documented in this encounter Plan of Treatment Upcoming Encounters Date Type Department Care Team (Late st Contact Info) Description 01/27/2025 7:00 AM CDT Office Visit [facility] Medical Group Family & Internal Medicine [facility] [address] [place] [address] [place] [address] [place], [place] [phone] 10/22/2025 9:15 AM VOTATOR MACHINE OPERATOR Office Visit [facility] [address] [address] Mily Gan MD [id number] [place], [place] [phone] documented as of this encounter Goals Goal Patient Goal Type Associated Problems Recent Progress Patient-Stated? Author Establish Plan for Symptom Monitoring General No Jesi Mixon i RN Monitor - demonstrates appropriate technique of care of indwelling urinary catheter and new ostomy General No Jesi Cochran RN documented as of this encounter Visit Diagnoses Not on filedocumented in this encounter Care Teams Store Group Manager Relationship Specialty Start Date End Date Lorie Chan MD PCP - General INTERNAL MEDICINE 01/15/20 02/09/23 Moraima Toledo, RN [address] [place] [address] Laundrette Owner (Ambulatory) REGISTERED NURSE 03/19/21 documented as of this encounter
--- OUTSIDE RECORDS SUMMARY | 2024-11-02 08:12 | XMS_ITS | Encounter Summary ---
Author Organization [facility] Address [address] [place] [address]. [place] [address] [place] [address] Care Team Providers Care Security Threat Analyst Name Role Phone Lorie Chan MD Primary Care Provider [phone] Moraima Toledo RN Unavailable [phone] Reason for Visit * Reason Onset Date Comments Orders 03/24/2021 [facility] Home Care Encounter Details Date Type Department Care Team (Late st Contact Info) Description 03/24/2021 Telephone [facility] Medical Group General Surgery - [place] [address] [facility], [address] [place] [address] Federico Mayer MD [address] [facility] [address] [place] [address] Orders ([facility] Home Care) Social History Tobacco Use Types Packs/Day Years [...] on file 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 Patient is being seen tomorrow and he has a JITENDRA drain and incisional area(senthil) that has a dressing on it. Is a dressing change needed? With Iodine? Patient does have a mullins and they said they weren't doing anything with that. documented in this encounter Plan of Treatment Upcoming Encounters Date Type Department Care Team (Late st Contact Info) Description 01/27/2025 7:00 AM CDT Office Visit [facility] Medical Group Family & Internal Medicine - [place] [address] [place] [address] [place] [address] [place], [place] [phone] 10/22/2025 9:15 AM FORMS EXAMINER Office Visit [facility] [address] Mily Gan MD [place] [address] [place] [address] documented as of this encounter Goals Goal Patient Goal Type Associated Problems Recent Progress Patient-Stated? Author Establish Plan for Symptom Monitoring General Jesi Lagunas i RN Monitor - demonstrates appropriate technique of care of indwelling urinary catheter and new ostomy General Jesi Ye RN documented as of this encounter Visit Diagnoses Not on filedocumented in this encounter Care Teams Security Threat Analyst Relationship Specialty Start Date End Date Lorie Chan MD PCP - General INTERNAL MEDICINE 01/15/20 02/09/23 Moraima Toledo, RN [address] [place] [address] Repeater Chief (Ambulatory) REGISTERED NURSE 03/19/21 documented as of this encounter
--- OUTSIDE RECORDS SUMMARY | 2024-11-02 08:12 | XMS_ITS | Encounter Summary ---
Author Organization [facility] Address [address] [place] [address]. [place] [address] [place] [address] Care Team Providers Care Adjuster Piano Action Name Role Phone Lorie Chan MD Primary Care Provider [phone] Moraima Toledo RN Unavailable [phone] Reason for Visit * Reason Onset Date Comments Hospital Follow Up 03/19/2021 Encounter Details Date Type Department Care Team (Late st Contact Info) Description 03/19/2021 Patient Outreach [facility] Medical Group Family & Internal Medicine [facility] [address] [place] [address] Moraima Toledo, RN [address] [place] [address] Hospital Follow Up Social History [...] on file 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 Care coordination team will continue to follow and complete TCM call back when D/C. Thank you. * Susan Sanders MA - 03/19/2021 8:42 AM CDT Noted documented in this encounter Plan of Treatment Upcoming Encounters Date Type Department Care Team (Late st Contact Info) Description 01/27/2025 7:00 AM CDT Office Visit [facility] Medical Group Family & Internal Medicine - [place] [address] [place] [address] [place] [address] [place], [place] [phone] 10/22/2025 9:15 AM EXTENSION EDGER Office Visit [facility] [address] [address] Mily Gan MD [address] [phone] documented as of this encounter Visit Diagnoses Not on filedocumented in this encounter Care Teams Adjuster Piano Action Relationship Specialty Start Date End Date Lorie Chan MD PCP - General INTERNAL MEDICINE 01/15/20 02/09/23 Moraima Toledo, RN [address] [place] [address] Channel Executive (Ambulatory) REGISTERED NURSE 03/19/21 documented as of this encounter
--- OUTSIDE RECORDS SUMMARY | 2024-11-02 08:12 | XMS_ITS | Encounter Summary ---
Author Organization [facility] Address [address] [place] [address]. [place] [address] [place] [address] Care Team Providers Care Cylinder Worker Name Role Phone Lorie Chan MD Primary Care Provider [phone] Reason for Visit * Auth/Cert Specialty Diagnoses / Procedures Referred By Shelby jama Referred To Contact Diagnoses Perforated diverticulum Perforated diverticulum Procedures INP Referral ID Status Reason Start Date Expiration Date Visits Re quested Visits Authorized [id number] 1 1 Encounter Details Date Type Department Care Team (Late st Contact Info) Description 03/18/2021 2:36 PM CDT Anesthesia Event [facility] [address] [place] [id number] David Ha CRNA [address] [place] [id number] Jose Mejia MD 619 [facility] [address] [address] Anesthesia Record Procedure Summary Procedure Name Responsible Anesthesiologist Anesthesia Start Time Anesthesia Stop Time LAPAROSCOPY DIAGNOSTIC, open sigmoidectomy with repair of bladder WITH OSTOMY (Abdomen) David Ha CRNA 03/18/21 1436 03/18/21 1851 Events Date Time Event Comment 03/18/2021 1346 AN GRAIN ELEVATOR WORKER Prepped 1430 1436 An Start Patient ID and consent checked and patient reassessed. Flagyl 500mg and Ancef 2gm started in Pre-op. 1436 An Start Data 1444 An Data Art 1445 An Block Epidural cathet er placement. 1447 Quick Note Negative aspira tion. Negative test dose. 1450 Preoxygenation 1455 Quick Note Induction. The patient was re-evaluated immediately before anesthesia induction. 1457 An Intubation 1505 Anesthesia Ready 1524 an alejandro now Procedure start . 1532 Quick Note Steep trendelen larry with RT side down. PSR. 1602 Anes Handoff 1705 An Surgeon on Cuff 1706 Quick Note Position return ed to level lithotomy 1839 An Extubation 1844 an stop data 1848 Post Anesthetic Care Handoff I completed my handoff to the receiving nurse during which we: 1. Identified the patient 2. Identified the responsible provider 3. Reviewed the pertinent medical history 4. Discussed the surgical course 5. Reviewed intra-op anesthesia management and issues during anesthesia 6. Set expectations for post-procedure period 7. Allowed opportunity for questions and acknowledgement of understanding. 185 An Stop Meds Name Total lidocaine (PF) (XYLOCAINE) 1% injection 110 mg propofol (DIPRIVAN) 200 mg/20 mL injecti on 160 mg rocuronium (ZEMURON) 50 mg/5 mL injectio n 50 mg succinylcholine (ANECTINE) 20 mg/mL inje ction 120 mg dexamethasone (DECADRON) 4mg/mL injectio n 8 mg ondansetron (ZOFRAN) 4 mg/2 mL injection 4 mg fentaNYL (SUBLIMAZE) 100 mcg/2 mL inject ion 225 mcg midazolam 2 mg/2 mL injection 2 mg phenylephrine (LORNA-SYNEPHRINE) 1 mg/10 m L IV syringe 500 mcg lidocaine 1.5%-EPINEPHrine 1:200,000 inj ection 3 mL ePHEDrine injection 30 mg lidocaine 2%-EPINEPHrine 1:200,000 injec tion 10 mL glycopyrrolate (ROBINUL) injection 0.3 m g neostigmine (BLOXIVERZ) 10 mg/10 mL inje ction 3 mg lactated ringers infusion 2,500 mL * Agents Name O2 N2O Air Inspired Sevoflurane Sevoflurane * Blood No blood administrations on file. Lines, Drains, and Airways Type Details Placement Removal Epidural Placement Date: 03/18/21; Placement Location: Thoracic; Removal Date: 03/20/21; Removal Time: 1000 03/18/21 0000 by Tonja Morales RN 03/20/21 1000 by Tonja Morales RN Peripheral IV Placement Date: 03/18/21; Placement Time: 0950; Placed Outside of This Facility?: No; Size: 20 G; Orientation: Left; Location: Forearm; Removal Date: 03/21/21; Removal Time: 1017; Removal Reason: Leaking 03/18/21 0950 by Emilia Mays RN 03/21/21 1017 by Tonja Morales RN Peripheral IV Placement Date: 03/18/21; Placement Time: 1150; Placed Outside of This Facility?: No; Size: 20 G; Orientation: Right; Location: Hand; Site Prep: Chlorhexidine; Insertion attempts: 1; Ultrasound-guided Placement?: No; Patient Tolerance: Tolerated well; Removal Date: 03/20/21; Removal Time: 199903/18/21 1150 by Portillo Kolb RN 03/20/211999 by Gauri Romo RN Epidural Placement Date: 03/18/21; Placement Time: 1445 (created via procedure documentation); Placement Location: Lumbar; MRI Compatible: MRI UNSAFE ([id number]); Removal Date: 03/20/21; Removal Time: 1000 03/18/21 1445 by Jolene Cross CRNA 03/20/21 1000 by Tonja Morales RN ETT Placement Date: 03/18/21; Placement Time: 1457; Placed Outside of This Facility?:No; Mask Ventilate: Prior to intubation, Medium; Size (mm) : 7.5; Endotracheal: Oral, Stylet used; Blade Type: MAC 4; Placement Method: Direct Laryngoscopy (blade type in comment), Cricoid pressure, Rapid Sequence Induction; View Grade: 3; Viewable Anatomy: Arytenoid (Posterior arytenoids.); Insertion Attempts: 1; Placement Verified By: Capnography, Auscultation, Chest Rise; Placed By: REAGAN; Removal Date: 03/18/21; Removal Time: 184303/18/21 1457 by Jolene Cross CRNA 03/18/21 1844 by David Ha CRNA NG/OG Tube Placement Date: 03/18/21; Placement Time: 1500; Inserted By: Jolene Cross; Tube Type: Nasogastric; Tube Size: 16 Fr.; Tube Location: Left nostril; Removal Date: 03/19/21; Removal Time: 001; Removal Reason: Other (Tube was coiled inside mouth) 03/18/21 1500 by David Ha CRNA 03/19/21 0015 by Polly Oliveira RN Osborne Catheter 03/18/21; 1509; No; I & O - Strict I&O or Critically ill requiring I&O Q1-2hrs; 1; Hand hygiene performed, Site cleansed with sterile antiseptic, Sterile gloves, drape and lubricant used, Catheter inserted using aseptic technique, Osborne care post catheter insertion, Anchoring device applied, Drainage bag secured below level of bladder, Closed system maintained; Stat lock; Non-latex; 14 Fr. 03/18/21 1509 by Bianca Barclay RN 08/13/21 0000 by Cindy Farah RN Closed/Suction Drain 03/18/21; 1709; 1; Right; Abdomen; Bulb; 15 Fr. 03/18/21 1709 by Bianca Barclay RN 08/13/21 0000 by Cindy Farah RN Colostomy 03/18/21; 1805; Descending/sigmoid; LLQ 03/18/21 1805 by Bianca Barclay RN 08/13/21 0000 by Cindy Farah RN Surgical/Incision 03/18/21; 1815; Surg ical Wound; Abdomen; DRSG PREVENA INCISIONAL MANAGMENT (x1); closed with senthil ; 04/13/21; 0911; Healed 03/18/21 181 by Bianca Barclay RN 04/13/21 0911 by Libby Syed RN Surgical/Incision 03/18/21; 1818; Surg ical Wound; Abdomen; Right; DRESSING GAUZE 4X4 10PK (x1), DRESSING TEGADERM W/ WINDOW 6 X 7 CM (x0), BINDER ABDOMINAL LARGE 36-64 (x1); JITENDRA Drain Site ; 04/13/21; 0911; Healed 03/18/21 181 by Bianca Barclay RN 04/13/21 09 by Libby Syed RN documented in this encounter Social History [...] on file Legal 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 Gender Identity Not on file Sexual [...] OR Notes * Anesthesia Postprocedure Evaluation - Jolene Cross, REAGAN - 03/19/2021 9:35 AM CDT Anesthesia Post-op Note Natan Patel Procedure(s): LAPAROSCOPY DIAGNOSTIC, open sigmoidectomy with repair of bladder WITH OSTOMY (N/A Abdomen) Anesthesia type: general Vitals: 03/19/21 08 BP: 119/72 Vitals: 03/19/21 08 Pulse: 76 Vitals: 03/19/21842 Resp: 20 Vitals: 03/19/21842 Temp: 36.8 ??C Vitals: 03/19/21842 SpO2: 95% Patient Location: Inpatient Unit Level of Consciousness: awake, alert and oriented Pain Management: adequate analgesia (Demerol epidural infusing. Patient denies pain at this time. Patient resting comfortably in bed. ) Airway Patency: patent Respiratory Status: acceptable and nasal cannula (With EtCO2 monitoring in place.) Cardiovascular Status: acceptable and stable Post-Op Nausea: none Postoperative Hydration: euvolemic Comments: Blood pressure 119/72, pulse 76, temperature 36.8 ??C, temperature source Oral, resp. rate 20, height 5' 6 (1.676 m), weight 74.6 kg (164 lb 7.4 oz), SpO2 95%. No complications documented. * Anesthesia Procedure Notes - Jolene Cross CRNA - 03/18/2021 3:28 PM CDTAssociated Order(s): Epidural Block Epidural: Date/Time: 03/18/2021 2:45 PM Patient location during procedure: OB Reason for block: at surgeon's request and post-op pain management Preanesthetic Checklist Completed: patient identified, consent, pre-op evaluation, timeout performed, IV checked, risks andbenefits discussed and monitors and equipment checked Procedure Information: Patient position: sitting Prep: chlorhexidine Patient monitoring: non-invasive blood pressure and continuous pulse oximetry Approach: midline Location: L3-L4 Injection technique: GALLO saline Placement Location: lumbar Ultrasound-guided Placement: No Needle and Catheter: MRI Compatible: MRI UNSAFE ([id number]) Needle type: Tuohy Needle gauge: 17 G Needle length: 3.5 in Needle insertion depth: 7 cm Catheter type: side hole Catheter size: 19 G Catheter at skin depth: 14 cm Test dose: positive and lidocaine 1.5% with epinephrine 1-to-200,000 (1447: Negative test dose.) Needle attempts: 1 Additional Notes Epidural Kit Lot: [id number] Expiration: 11/06/2021 * Anesthesia Preprocedure Evaluation - Jose Mejia MD - 03/18/2021 1:01 PM CDT Anesthesia ROS/MED History Reviewed: Patient summary , Nursing notes , ECG, Family history anesthesia, Anesthesia history , Medications , Labs , Images/Studies Pre-Anesthetic State: alert, awake and responds appropriately Pulmonary (+) sleep apnea, smoker Cardiovascular (+) hyperlipidemia Neuro/Psych (+) substance use, (alcohol use) Comments: Cervical stenosis GI/Hepatic/Renal Comments: Dysphagia Endo/Other (+) arthritis, (OA) GENERAL COMMENTS Past Medical History: Arthritis Cervical stenosis of spine Hyperlipidemia RANDY (obstructive sleep apnea) EKG Interpretive Statements SINUS RHYTHM NONSPECIFIC T-WAVE ABNORMALITY No previous ECG available for comparison CT Abdomen Impression: Abdominal free air consistent with bowel perforation. Approximately 3 cm x 3.7 cm dense stool ball in the sigmoid colon near the area of inflammation and air. Several sigmoid diverticula also in the region suggesting the source may be perforated diverticulum. Air tracking in the mesentery to the upper abdomen including subdiaphragmatic space. Past Surgical History: 2014: COLONOSCOPY Right ING HERNIA REPAIR Left ING HERNIA REPAIR Right Neck/Chest Reconstruction ZANA TOTAL KNEE ARTHROPLASTY Physical Evaluation Airway Mallampati: II TM Distance: >3 FB Neck ROM: normal Dental Pulmonary Pulmonary exam normal Breath sounds clear to auscultation Cardiovascular Rhythm: regular Rate: normal Cardiovascular exam normal Other findings: 03/18/21 0950 WBC 13.7* RBC 4.81 HGB 15.7 HCT 45.7 PLT 236 NA 137 K 4.0 CL 100 CO2 28.1 AGAP 8.9 BUN 19* CR 0.85 BUNCREATININ 22.4 GFRNON >90 GFR >90 GLU 122* CA 8.9 Anesthesia Plan ASA 2 Emergent Intravenous Induction Anesthesia type: general Discussed potential risks of GETA/RSI including but not limited to corneal abrasion, visual impairment or visual loss, mouth injury, dental damage, sore throat, hoarseness, esophageal injury, awareness under anesthesia, nerve injury due to positioning, aspiration, pneumonia, stroke, cardiac event, adverse drug reactions and . Informed Consent Anesthetic plan and risks discussed with patient of whom consent was obtained. . documented in this encounter Plan of Treatment Upcoming Encounters Date Type Department Care Team (Late st Contact Info) Description 01/27/2025 7:00 AM CDT Office Visit [facility] Family [facility] Internal [facility] [address] [place] [address] [place] [address] [place] [address] 10/22/2025 9:15 AM PARKS RECREATION COORDINATOR Office Visit [facility] [address] Mily Gan MD [address] [place], [place] [id number] documented as of this encounter Procedures Procedure Name Priority Date/Time Associated Diagnosis Comments EPIDURAL BLOCK Routine 03/18/2021 3:28 PM CDT documented in this encounter Results * EPIDURAL BLOCK (03/18/2021 3:28 PM CDT) Narrative Jolene Cross CRNA - 03/18/2021 3:28 PM CDT Jolene Cross CRNA ? 03/18/2021 ??3:46 PM Epidural: Date/Time: ??03/18/2021 2:45 PM Patient location during procedure: OB Reason for block: at surgeon's request and post-op pain management Preanesthetic Checklist Completed: patient identified, consent, pre-op evaluation, timeout performed, IV checked, risks and benefits discussed and monitors and equipment checked Procedure Information: Patient position: sitting Prep: chlorhexidine Patient monitoring: non-invasive blood pressure and continuous pulse oximetry Approach: midline Location: L3-L4 Injection technique: GALLO saline Placement Location: ??lumbar Ultrasound-guided Placement: ??No Needle and Catheter: MRI Compatible: MRI UNSAFE ([id number]) Needle type: Tuohy Needle gauge: 17 G Needle length: 3.5 in Needle insertion depth: 7 cm Catheter type: side hole Catheter size: 19 G Catheter at skin depth: 14 cm Test dose: positive and lidocaine 1.5% with epinephrine 1-to-200,000 (1447: Negative test dose.) Needle attempts: ??1 Additional Notes Epidural Kit Lot: [id number] Expiration: 11/06/2021 Jolene Cross GRAIN ELEVATOR WORKER [place] ANESTHESIA Edited Result - Final documented in this encounter Visit Diagnoses Not on filedocumented in this encounter Administered Medications Inactive Administered Medications - up to 3 most recent administrations Medication Order MAR Action Action Date Dose Rate Site dexamethasone (DECADRON) injection Intravenous, PRN, Starting on Yamilex 03/18/21 at 1500, Until Yamilex 03/18/21 at 1851, Anesthesia Intra-Op Given 03/18/2021 3:00 PM CDT 8 mg ePHEDrine injection Intravenous, PRN, Starting on Yamilex 03/18/21 at 1711, Until Yamilex 03/18/21 at 1851, Anesthesia Intra-Op Given 03/18/2021 5:57 PM CDT 10 mg Given 03/18/2021 5:47 PM CDT 10 mg Given 03/18/2021 5:11 PM CDT 10 mg fentaNYL (SUBLIMAZE) injection Intravenous, PRN, Starting on Yamilex 03/18/21 at 1520, Until Yamilex 03/18/21 at 1851, Anesthesia Intra-Op Given 03/18/2021 6:19 PM CDT 25 mcg Given 03/18/2021 3:45 PM CDT 50 mcg Given 03/18/2021 3:38 PM CDT 50 mcg glycopyrrolate (ROBINUL) injection Intravenous, PRN, Starting on Yamilex 03/18/21 at 1812, Until Yamilex 03/18/21 at 1851, Anesthesia Intra-Op Given 03/18/2021 6:12 PM CDT 0.3 mg lactated ringers infusion Intravenous, Continuous PRN, Starting on Yamilex 03/18/21 at 1435, Until Yamilex 03/18/21 at 1851, Anesthesia Intra-Op New Bag 03/18/2021 5:35 PM CDT New Bag 03/18/2021 3:45 PM CDT New Bag 03/18/2021 2:35 PM CDT lidocaine (PF) (XYLOCAINE) 1 % injection Intravenous, PRN, Starting on Yamilex 03/18/21 at 1455, Until Yamilex 03/18/21 at 1851, Anesthesia Intra-Op Given 03/18/2021 2:55 PM CDT 80 mg Given 03/18/2021 2:41 PM CDT 30 mg lidocaine-EPINEPHrine 1.5 %-1:013743 injection Other, PRN, Starting on Yamilex 03/18/21 at 1447, Until Yamilex 03/18/21 at 1851, Anesthesia Intra-Op Given 03/18/2021 2:47 PM CDT 3 mLs lidocaine-EPINEPHrine 2 %-1:352880 injection Epidural, PRN, Starting on Yamilex 03/18/21 at 1722, Until Yamilex 03/18/21 at 1851, Anesthesia Intra-Op Given 03/18/2021 5:22 PM CDT 10 mLs midazolam (VERSED) injection Intravenous, PRN, Starting on Yamilex 03/18/21 at 1436, Until Yamilex 03/18/21 at 1851, Anesthesia Intra-Op Given 03/18/2021 2:36 PM CDT 2 mg neostigmine (BLOXIVERZ) injection Intravenous, PRN, Starting on Yamilex 03/18/21 at 1812, Until Yamilex 03/18/21 at 1851, Anesthesia Intra-Op Given 03/18/2021 6:12 PM CDT 3 mg ondansetron (ZOFRAN) injection Intravenous, PRN, Starting on Yamilex 03/18/21 at 1718, Until Yamilex 03/18/21 at 1851, Anesthesia Intra-Op Given 03/18/2021 5:18 PM CDT 4 mg phenylephrine (LORNA-SYNEPHRINE) injection Intravenous, PRN, Starting on Yamilex 03/18/21 at 1507, Until Yamilex 03/18/21 at 1851, Anesthesia Intra-Op Given 03/18/2021 5:07 PM CDT 100 mcg Given 03/18/2021 5:03 PM CDT 100 mcg Given 03/18/2021 5:02 PM CDT 100 mcg propofol (DIPRIVAN) IV bolus Intravenous, PRN, Starting on Yamilex 03/18/21 at 1455, Until Yamilex 03/18/21 at 1851, Anesthesia Intra-Op Given 03/18/2021 2:55 PM CDT 160 mg rocuronium (ZEMURON) injection Intravenous, PRN, Starting on Yamilex 03/18/21 at 1505, Until Yamilex 03/18/21 at 1851, Anesthesia Intra-Op Given 03/18/2021 3:35 PM CDT 20 mg Given 03/18/2021 3:05 PM CDT 30 mg succinylcholine (ANECTINE) injection Intravenous, PRN, Starting on Yamilex 03/18/21 at 1455, Until Yamilex 03/18/21 at 1851, Anesthesia Intra-Op Given 03/18/2021 2:55 PM CDT 120 mg documented in this encounter Care Teams Cylinder Worker Relationship Specialty Start Date End Date Lorie Chan MD PCP - General INTERNAL MEDICINE 01/15/20 02/09/23 documented as of this encounter
--- OUTSIDE RECORDS SUMMARY | 2024-11-02 08:12 | XMS_ITS | Encounter Summary ---
Author Organization [facility] Address [address] [place] [address]. [place] [address] [place] [address] Care Team Providers Care Larry Car Operator Name Role Phone Lorie Chan MD Primary Care Provider [phone] Moraima Toledo RN Unavailable [phone] Encounter Details Date Type Department Care Team (Late st Contact Info) Description 03/24/2021 Plan of Care Documentation 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 Author Establish Plan for Symptom Monitoring General Jesi Lagunas i RN Monitor - demonstrates appropriate technique of care of indwelling urinary catheter and new ostomy General Jesi Ye RN documented as of this encounter Visit Diagnoses Not on filedocumented in this encounter Care Teams Larry Car Operator Relationship Specialty Start Date End Date Lorie Chan MD PCP - General INTERNAL MEDICINE 01/15/20 02/09/23 Moraima Toledo, RN [address] [place] [address] Manager Transfusion (Ambulatory) REGISTERED NURSE 03/19/21 documented as of this encounter
--- OUTSIDE RECORDS SUMMARY | 2024-11-02 08:13 | XMS_ITS | Encounter Summary ---
Author Organization [facility] Address [address] [place] [address]. [place] [address] [place] [address] Care Team Providers Care Gas Engine Repairer Name Role Phone Lorie Chan MD Primary Care Provider [phone] Reason for Visit * Auth/Cert Specialty Diagnoses / Procedures Referred By Shelby jama Referred To Contact Diagnoses Pharyngoesophageal dysphagia Dysphagia Procedures UPPER GI ENDOSCOPY,DIAGNOSIS EGD Referral ID Status Reason Start Date Expiration Date Visits Re quested Visits Authorized [id number] 1 1 Encounter Details Date Type Department Care Team (Latest Contact Info) Description 03/10/2021 6:55 AM CDT - 03/10/2021 9:57 AM CDT Hospital Encounter [facility] [address] [place] [address] Jenni Randolph MD [address] [place] [phone] Discharge Disposition: Home or Self Care (Routine Discharge) Social History Tobacco Use Types Packs/Day Years Used Date Smoking Tobacco: Every Day Cigarettes Smokeless Tobacco: Never Alcohol Use Standard Drinks/Week Comments Yes 0 (1 standard drink = 0.6 oz pur e alcohol) Occasionally AUDIT-C Answer Date Recorded Q1: How often [...] on file 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 No / Unsure 03/10/2021 6:55 AM CDT documented as of this encounter Last Filed Vital Signs Vital Sign Reading Time Taken Comments Blood Pressure 133/73 03/10/2021 9:45 AM CDT Pulse 65 03/10/2021 8:01 AM CDT Temperature 36 ??C (96.8 ??F) 03/10/2021 8:01 AM CDT Respiratory Rate 18 03/10/2021 8:01 AM CDT Oxygen Saturation 97% 03/10/2021 9:30 AM CDT Inhaled Oxygen Concentration - - Weight 72.6 kg (160 lb) 03/10/2021 8:01 AM CDT Height 167.6 cm (5' 6 ) 03/10/2021 8:01 AM CDT Body Mass Index 25.82 03/10/2021 8:01 AM CDT documented in this encounter Discharge Instructions * Discharge Instructions* Maria Fernanda Green RN - 03/10/2021 9:43 AM CDT Anesthesia general information Everyone recovers form surgery differently. Your recovery depends on the type of surgery performed,your age, level of activity before the surgery, and your overall health. To help the recovery process and for your safety, we recommend: ??? Have a family member or friend stay with you the first 24 hours after surgery. ??? Don't drive or drink alcohol or sign legal documents the first 24 hours after surgery. ??? Don't use heavy machinery, or operate power tools while taking pain medications. ??? Don't smoke-smoking increases your chance of of lung infections after surgery and decreases blood-flow slowing the healing process. ??? Don't skip meals- doing so may make you feel dizzy, shaky or anxious. ??? Decrease caffeine consumption- caffeine can make you feel anxious and nervous. ??? Take all medications as prescribed by your doctor. ??? Wash your hands often to avoid germs that cause infections. ??? Wear comfortable, loose fitting clothing that does not place pressure on your incision. * Attachments The following attachments cannot be sent through Care Everywhere. * Upper GI Endoscopy Discharge Instructions (Uzbek) * Esophageal Stricture Discharge Instructions (Uzbek) * Acid Reflux and GERD in Adults Discharge Instructions (Uzbek) * Hiatal Hernia Discharge Instructions (Uzbek) documented in this encounter Medications at Time [...] filters 1 Device 3 0 10/09/20 24 meloxicam 15 MG tabletIndications:P rimary osteoarthritis involving multiple joints Take 1 tablet (15 mg total) by mouth daily. 90 tablet 1 1 03/23/20 21 Misc Natural Products (OSTEO BI-FLEX JOINT SHIELD OR) Take 1 tablet by mouth 2 (two) times daily. 03/24/20 21 documented as of this encounter Progress Notes * Jenni Randolph MD - 03/10/2021 9:57 AM CDT Your esophageal stricture biopsy is benign * MICHAEL Lovett Emblem Fuser Tender - 03/10/2021 9:57 AM CDT Anesthesia Record Closure: As a Chart Correction Emblem Fuser Tender, I closed the Anesthesia Record due to ageof the record. All required documentation was previously completed and signed by RETAIL CLIENT SOLUTIONS CONSULTANT. Y SCIENCE TEACHER documented in this encounter H&P Notes * Jenni Randolph MD - 03/10/2021 8:47 AM CDT HISTORY AND PHYSICAL INTERVAL NOTE: I have reviewed Natan Patel History & Physical which was performed within the past 30 days. After examining Natan Patel, no change has occurred in the patient's condition since the H&P was completed. Informed Consent Discussion: Potential benefits, risks, and side effects of the patient's procedure/surgery; the likelihood of the patient achieving his or her goals; and any potential problems that might occur during recuperation were discussed with the patient/family/personal customer loyalty representative. Reasonable alternatives to the patient's proposed procedure/surgery including benefits, risks, and side effects related to the alternatives and the risks related to not receiving the proposed care were also discussed with the patient/family/personal customer loyalty representative. Questions were answered and the patient/family/personal customer loyalty representative verbalized understanding and desires to proceed. Source Note - Jenni Randolph MD - 02/19/2021 1:20 PM CDT Images from the original note were not included. Gastroenterology Initial Visit Reason for Visit: Dysphagia (pt is having trouble swallowing, last EGD years ago ) History of Present Illness: 65-year-old comes in for evaluation of 3 months dysphagia symptoms. Dysphagia is to solid foods butnot liquids. He is to wash down with food with liquids. Weight stable. No pain. Patient has a history of smoking and alcohol. Neck surgery in 2019. ROS: General: No fever, chills, malaise, fatigue, weight loss or gain HEENT: No acute changes in vision or hearing Respiratory: No shortness of breath, cough, sputum production, hemoptysis Cardiovascular: No chest pain, palpitations, orthopnea Gastrointestinal: As per HPI Musculoskeletal: No dysuria, hematuria, incontinence Neuro: No extremity edema, myalgia Hematology: No easy bruising, bleeding Skin: No new skin rashes or lesions Medications: Current Outpatient Medications: ??? Ascorbic Acid (VITAMIN C) 100 MG tablet, Take 100 mg by mouth daily., Disp: , Rfl: ??? aspirin 81 MG chewable tablet, Chew 81 mg by mouth daily., Disp: , Rfl: ??? atorvastatin 40 MG tablet, Take 1 tablet (40 mg total) by mouth nightly at bedtime., Disp: 90 tablet, Rfl: 1 ??? Cholecalciferol (VITAMIN D) 50 MCG (1999 UT) Cap, Take 25 mcg by mouth daily., Disp: , Rfl: ? ? CPAP SUPPLIES, 1 Units by Does not apply route nightly at bedtime. Mask, tubing & filters, Disp: 1 Device, Rfl: 3 ??? meloxicam 15 MG tablet, Take 1 tablet (15 mg total) by mouth daily., Disp: 90 tablet, Rfl: 1 ??? Misc Natural Products (OSTEO BI-FLEX JOINT SHIELD OR), Take 1 tablet by mouth 2 (two) times daily., Disp: , Rfl: ??? Vitamin E 400 units Tab, Take 400 Units by mouth daily., Disp: , Rfl: Allergies: Allergies Allergen Reactions ??? Morphine Itching Medical History: Past Medical History: Diagnosis Date ??? Cervical stenosis of spine ??? Hyperlipidemia ??? Influenza vaccine administered ??? RANDY (obstructive sleep apnea) Surgical History: Past Surgical History: Procedure Laterality Date ??? COLONOSCOPY N/A 2013 ??? HERNIA REPAIR Right [facility] ??? HERNIA REPAIR Left [facility] ??? NECK/CHEST PROCEDURE UNLISTED Right [facility], re-built right side of neck. ??? TOTAL KNEE ARTHROPLASTY Bilateral ZANA Partial KR, done @ [facility] Social History: Social History Socioeconomic History ??? Marital status: Spouse name: Not on file ??? Number of children: Not on file ??? Years of education: Not on file ??? Highest education level: Not on file Occupational History ??? Not on file Social Needs ??? Financial resource strain: Not on file ??? Food insecurity Worry: Not on file Inability: Not on file ??? Transportation needs Medical: Not on file Non-medical: Not on file Tobacco Use ??? Smoking status: Current Every Day Smoker Packs/day: 0.50 Types: Cigarettes ??? Smokeless tobacco: Never Used Substance and Sexual Activity ??? Alcohol use: Yes Frequency: Monthly or less Drinks per session: 1 or 2 Comment: Occasionally ??? Drug use: Never ??? Sexual activity: Not Currently Partners: Female Lifestyle ??? Physical activity Days per week: Not on file Minutes per session: Not on file ??? Stress: Not on file Relationships ??? Social connections Talks on phone: Not on file Gets together: Not on file Attends taoism service: Not on file Active member of club or organization: Not on file Attends meetings of clubs or organizations: Not on file Relationship status: Not on file ??? Intimate partner violence Fear of current or ex partner: Not on file Emotionally abused: Not on file Physically abused: Not on file Forced sexual activity: Not on file Other Topics Concern ??? Not on file Social History Narrative ??? Not on file Family History: Family History Problem Relation Name Age of Onset ??? Arthritis in Adults Mother ??? Dementia Mother at the end per patient ??? Hypertension Mother ??? Cancer Father ??? Heart Father ??? Heart Disease Father PE: Filed Vitals: 02/19/21 1313 BP: 124/72 Pulse: 74 Resp: 18 Temp: 97.5 ??F (36.4 ??C) TempSrc: Temporal SpO2: 98% Weight: 73.1 kg (161 lb 3.2 oz) Height: 5' 6 (1.676 m) General: In NAD, pleasant and appropriate HEENT: Anicteric Cardiovascular: RRR, no m Pulmonary: CTA BL, no added sounds Abdomen: Soft, ND/NT, normoactive BS Skin: Anicteric, no rashes Neuro: A&Ox3 Labs: Labs Reviewed Diagnoses/Impression: Dysphagia to solid foods. History of neck surgery. Recommendations and Plan: ?? EGD for possible dilation of the esophagus ?? All questions answered ?? More recommendations to follow endoscopic evaluation Risks/Benefits/Options: Patient presented with risks (can include but are not limited to: discomfort, missing lesions, allergic or adverse reaction to the sedation, perforation of the bowel which may require hospitaliztion and surgery, bleeding, infection, aspiration), benefits, and alternatives to the procedure(s) and they are in agreement to proceed as planned. JENNI RANDOLPH MD 02/19/2021 Voice recognition software utilized documented in this encounter OR Notes * Op Note - Jenni Randolph MD - 03/10/2021 9:11 AM CDT [facility] OpNote EGD WITH BIOPSY AND DILATION Procedure Note Natan Pavan Patel 03/10/2021 0826 Procedure(s) (LRB): EGD WITH BIOPSY AND DILATION (N/A) Surgeon(s): Jenni Randolph MD Staff: Circulating Nurse 1: Dorinda Pak RN Scrub Person 1: Savannah Brush, COFFEE MAKER SERVICER Anesthesia: Monitor Anesthesia Care RETAIL CLIENT SOLUTIONS CONSULTANT: Meredith Villagran CRNA Pre-Op Diagnosis: Dysphagia Post-Op Diagnosis: GE junction stricture biopsied and dilated Procedure Description: Informed consent was obtained earlier. Patient was brought to the OR and placed in supine lateral decubitus position and sedated under MAC anesthesia. GIF 190 gastroscope was again inserted into the hypopharynx advanced by direct acting. Upper middle and distal esophagus was e ssentially normal. At the GE junction however there was a moderate stricture at 36 cm. Stomach entered distended well. Retroflexed views of the cardia fundus angularis revealed no significant abnormalities except for a small 2 cm hiatal hernia. Antrum looked normal. The first and second parts of duodenum looked normal and scope withdrawn. A 48 Swedish Guevara dilator was then lubricated inserted for single pass which was well-tolerated without significant resistance or heme. Findings: GE junction with moderate stricture was biopsied and dilated with 48 Swedish Guevara. Small hiatal hernia. Rest examination was negative. Plan: Check pathology. Complications: None Estimated Blood Loss: * No values recorded between 03/10/2021 8:54 AM and 03/10/2021 9:11 AM * Specimens: Order Name Source Comment Collection Info Order Time PATHOLOGY GASTRIC BIOPSY dysphagia Collected By: Jenni Randolph MD 03/10/2021 9:08 AM Release to patient System release Voice recognition software utilized. JENNI RANDOLPH MD Date: 03/10/2021 Time: 9:11 AM Voice recognition software utilized. documented in this encounter Plan of Treatment Upcoming Encounters Date Type Department Care Team (Late st Contact Info) Description 01/27/2025 7:00 AM CDT Office Visit [facility] Family & Internal Medicine - [place] [address] [place] [address] [place] [address] [place] [address] 10/22/2025 9:15 AM DAIRY SCIENCE TEACHER Office Visit [facility] [phone] Mily Gan MD [address] [address] documented as of this encounter Procedures Procedure Name Priority Date/Time Associated Diagnosis Comments PATHOLOGY Routine 03/10/2021 9:02 AM CDT UPPER GI ENDOSCOPY,DIAGNOS IS 03/10/2021 8:55 AM CDT Pharyngoesophageal dysphagia Special Needs 0700 documented in this encounter Results * Pathology (03/10/2021 9:02 AM CDT) Tissue specimen (specimen) GASTRIC BIOPSY SPECIMEN / Unknown 03/10/2021 9:02 AM CDT Comment:dysphagia Narrative [facility] - 03/15/2021 2:37 PM CDT [id number] Date of service: ??03/10/2021 Preoperative diagnosis: ??Dysphagia GROSS DESCRIPTION: ?? The specimen was received in formalin on 03/10/2021 and biopsy GE stricture. ??The specimen consists of ??four warren ovoid fragments of tissue measuring 0.2 cm in greatest dimension. ??Submitted entirely in a single cassette and both Giemsa and Alcian blue PAS stain will be performed. (CPT code: ??66209, [id number], 73070) Site: ??[facility] ([facility] D: ??03/10/2021 03:10 PM #[id number] T: ??03/11/2021 08:52 AM /NTS [id number] PATHOLOGIC DIAGNOSIS: Tissue from gastroesophageal stricture: - Squamous mucosa, mild chronic gastritis. - Gastric mucosa, mild chronic gastritis. - Giemsa stain for H. pylori is negative. - PAS Alcian blue stain is negative. MICROSCOPIC EXAMINATION: Sections of the submitted material reveal multiple fragments of squamous mucosa, and one fragment of gastric mucosa. ??The squamous mucosa shows edema, slight parakeratosis and few intraepithelial lymphocytes focally. The gastric mucosa fragment shows mild chronic inflammation. ??No intestinal metaplasia or dysplasia present. D: ??03/15/2021 10:55 AM #[id number] T: ??03/15/2021 11:16 AM /NTS Jenni Randolph MD PATHOLOGY/CYTOLOGY ORDERABLES Fi nal Result [facility] [address] [place] [address], documented in this encounter Visit Diagnoses Diagnosis Pharyngoesophageal dysphagia- Primary Dysphagia, pharyngoesophageal phase documented in this encounter Admitting Diagnoses Diagnosis Pharyngoesophageal dysphagia Dysphagia, pharyngoesophageal phase documented in this encounter Administered Medications Inactive Administered Medications - up to 3 most recent administrations Medication Order MAR Action Action Date Dose Rate Site lactated ringers infusion at 10 mL/hr, Intravenous, Continuous, Starting on Mon03/10/21 at 0730, Until Mon03/10/21 at 1157, Infuse at TKO rate, Pre-Op New Bag 03/10/2021 8:10 AM CDT 10 mL/hr documented in this encounter Active and Recently Administered Medications Times are shown in CDT. Continuous Medication Order 03/08/2021 03/09/2021 03/10/2021 lactated ringers infusion at 10 mL/hr, Intravenous, Continuous, Starting on Mon03/10/21 at 0730, Until Mon03/10/21 at 1157, Infuse at TKO rate, Pre-Op 0810 (New Bag - Prov ider: Patsy Maria RN)0915 (Anesthesia Volume Adjustment - Provider: Meredith Villagran CRNA)0940 (Infusion Stop Time - Provider: Maria Fernanda Green RN) documented in this encounter Care Teams Gas Engine Repairer Relationship Specialty Start Date End Date Lorie Chan MD PCP - General INTERNAL MEDICINE 01/15/20 02/09/23 documented as of this encounter
--- OUTSIDE RECORDS SUMMARY | 2024-11-02 08:13 | XMS_ITS | Encounter Summary ---
Author Organization [facility] Address [address] [place] [address]. [place] [address] [place] [address] Care Team Providers Care Cylinder Steamer Name Role Phone Lorie Chan MD Primary Care Provider [phone] Reason for Visit * Reason Onset Date Comments Results 03/18/2021 Encounter Details Date Type Department Care Team (Late st Contact Info) Description 03/18/2021 Telephone [facility] Multispecialty [facility] - [facility] [address] 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 No / Unsure 03/18/2021 9:38 AM CDT documented as of this encounter Progress Notes * Carmel Collazo MA - 03/18/2021 9:42 AM CDT I relayed to patient ----- Message from Cody Randolph MD sent at 03/18/2021 9:32 AM CDT ----- Your esophageal stricture biopsy is benign documented in this encounter Plan of Treatment Upcoming Encounters Date Type Department Care Team (Late st Contact Info) Description 01/27/2025 7:00 AM CDT Office Visit [facility] Family & Internal Medicine - [place] [address] [place] [phone] [place] [address] [place], [place] [phone] 10/22/2025 9:15 AM GLASS DECORATOR Office Visit [facility] [phone] Mily Gan MD [address] [phone] documented as of this encounter Visit Diagnoses Not on filedocumented in this encounter Care Teams Cylinder Steamer Relationship Specialty Start Date End Date Lorie Chan MD PCP - General INTERNAL MEDICINE 01/15/20 02/09/23 documented as of this encounter
--- OUTSIDE RECORDS SUMMARY | 2024-11-02 08:13 | XMS_ITS | Encounter Summary ---
Author Organization [facility] Address [address] [place] [address]. [place] [address] [place] [address] Care Team Providers Care Cup Setter Lockstitch Name Role Phone Jeremy Castanon MD Primary Care Provider Reason for Visit * Auth/Cert Specialty Diagnoses / Procedures Referred By Shelby jama Referred To Contact Diagnoses Perforated diverticulum Perforated diverticulum Procedures INP Referral ID Status Reason Start Date Expiration Date Visits Re quested Visits Authorized [id number] 1 1 Encounter Details Date Type Department Care Team (Late st Contact Info) Description 03/18/2021 2:30 PM CDT - 03/18/2021 4:[address] [facility] [address] [place] [address] Margarita Sloan MD [address] [facility] [address] [place] [address] LAPAROSCOPY DIAGNOSTIC, open sigmoidectomy with repair of bladder WITH OSTOMY Surgery Details Date/Time Status Location OR Service Patient Class Case Cl ass Case Type Trauma Case? 03/18/2021 2:30 PM Posted [facility] OR OR 1 General Inpatient No Panel 1 Procedure LRB Anes Op Region Wound Class Comments LAPAROSCOPY DIAGNOSTIC, open sigmoidectomy with repair of bladder WITH OSTOMY N/A General Abdomen Dirty Surgeon Surgeon Role Service Panel Margarita Sloan MD Primary General 1 documented in this encounter Social History Tobacco [...] file Legal Sex Male 9:58 PM DIRECTOR IMAGING Gender Identity Not on file Sexual Orientation [...] CASTANON MD Discharge Physician: SEAN MARQUEZ APRN Hospital Diagnosis: Perforated diverticulum Admission Condition: stable [...] meloxicam 15 MG tablet Commonly known as: MOBIC Where to Get Your Medications These medications were sent to [id number] - [place], [place] - [address] [facility] [address], [facility] [id number] ?? amoxicillin-clavulanate 875-125 MG tablet ?? HYDROcodone-acetaminophen 5-325 MG tablet ?? senna-docusate 8.6-50 MG tablet Disposition: Home with Home Health Home Health / PPOC Statement: I acknowledge that I had a [...] services: (examples or possibly selections could include): long term to: Perform skilled assessment, medical condition education related to the above clinical and medical condition.Therapy assessment and treatment if appropriate Patient Instructions: Activity: activity as tolerated Diet: Diet low fiber Appropriate Wound Care: as directed Therapy Ordered: Physical Therapy: Evaluate and Treat Occupational Therapy: Evaluate and Treat long term: Evaluate and treat Follow-up appointments: PCP in a week, general surgery in a week Hospital Course: Mandie Cotter is a 65-year-old male that presented to the ED at [facility] for complaints of severe lower abdominal/suprapubic abdominal pain associated with subjective fevers and chills. ??He also stated that he did have associated urinary frequency but denied any particles in the urine. ??He denied any change in bowel movements. ??He stated that the pain was so severe but relieved with pain medication twice in the emergency department at [facility]. He believes his last colonoscopy was close [...] right for you. Copyright Copyright ?? 2020 [employer]. and its affiliates and/or licensors. All rights [...] my stoma. Where can I learn more? [employer] https://www.cancer.org/treatment/ztjgkgzxwn-bqz-wtbs-effects/treatment-types/christa marcia/ostomies/ileostomy/management.html Wound Ostomy and Continence Nurses Society https://www.ostomy.org/wp-content/uploads/2017//wocn_basic_ostomy_skin_care_.pdf Last Reviewed Date 2019 Consumer Information Use [...] right for you. Copyright Copyright ?? 2020 [employer] and its affiliates and/or licensors. All rights reserved. * Attachments The following attachments cannot be sent through Care Everywhere. * How to Care for Your Mullins Catheter, Male (Iranian) * Easton-Srinivasan Drain (Iranian) * Low Fiber Diet (Iranian) * How to Keep Track of Your Drainage (Iranian) * Hydrocodone and Acetaminophen, ADULT (Iranian) * Senna, ADULT (Iranian) * Amoxicillin and Clavulanate, ADULT (Iranian) documented in this encounter Medications at Time [...] Day Supply 20 tablet 1 09/22/20 21 [facility] [employer] (OSTEO BI-FLEX JOINT SHIELD OR) [...] MD - 03/23/2021 11:17 AM CDT Mandie Pavan Cotter 03/23/2021 Subjective Patient without complaints. Tolerating [...] Doing well. Plan: Okay to discharge home. [place] filled cystogram next and follow- up with [...] 0000 by Ruma Treviño RN Outcome: Progressing Goal: [...] fit and apply new appliance Verbalized understanding [facility] homehealth will follow. Phone number for the clinic left with patient and . Maria Fernanda Jorge * Luz Cruz LCSW - 03/22/2021 1:55 PM CDT SWCM met with patient and patient's who was [...] self care and support from wifeand inform [facility] Home Care is their home health preference. Referral completed to [facility] Home Care . Ostomy /wound care nurse will be meeting with patient today . SWCM to continue to follow. * Violet Rinaldi [...] MD - 03/22/2021 10:21 AM CDT Mandie Browne Amanda 03/22/2021 Subjective Postop day 4 status post [...] tomorrow. Continue DVT prophylaxis, incentive, ambulation. Margarita Sloan MD 03/22/2021 * Sean Marquez APRN - [...] Planning Goal: Knowledge of discharge instructions 03/22/2021 0525 by Ruma Treviño RN Outcome: Progressing 03/21/20212120 by Ruma Treviño RN Outcome: Progressing Problem: Fluid Volume - Imbalance Goal: Absence of imbalanced fluid volume signs and symptoms 03/22/2021 0525 by Ruma Treviño RN Outcome: Progressing 03/21/20212120 by Ruma Treviño RN Outcome: Progressing Problem: Nausea/Vomiting Goal: Absence of nausea/vomiting 03/22/2021 0525 by Ruma Treviño RN Outcome: Progressing 03/21/20212120 by Ruma Treviño RN Outcome: Progressing Goal: Electrolytes within specified parameters 03/22/2021 0525 by Ruma Treviño RN Outcome: Progressing 03/21/20212120 by Ruma Treviño RN Outcome: Progressing Problem: Nutrition Deficit Goal: Adequate nutritional intake 03/22/2021 0525 by Ruma Treviño RN Outcome: Progressing 03/21/20212120 [...] Jane MD - 03/21/2021 10:12 AM CDT [facility] GENERAL SURGERY DAILY PROGRESS NOTE Mandie Cotter [...] Objective Filed Vitals: 03/20/21 1300 03/20/21 2030 03/20/21 2048 03/21/21 0750 BP: 150/74 140/72 Pulse: 78 [...] 03/21/2021527 by Gauri Romo RN Outcome: Progressing 03/21/202113 by Gauri Romo RN Outcome: Progressing Problem: Fluid Volume - Imbalance Goal: Absence of imbalanced fluid volume signs and symptoms 03/21/2021527 by Gauri Romo RN Outcome: Progressing 03/21/202113 by aGuri Romo RN Outcome: Progressing Problem: Nausea/Vomiting Goal: Absence of nausea/vomiting 03/21/2021527 by Gauri Romo RN Outcome: Progressing 03/21/202113 by Gauri Romo RN Outcome: Progressing Goal: Electrolytes within specified parameters 03/21/2021527 by Gauri Romo RN Outcome: Progressing 03/21/202113 by Gauri Romo RN Outcome: Progressing Problem: [...] Jane MD - 03/20/2021 9:36 AM CDT [facility] GENERAL SURGERY DAILY PROGRESS NOTE Mandie Cotter [...] 11:04 AM CDT Dietitian Nutrition Assessment Mandie Browne Amanda, 1955, 65-year-old male admitted for Perforated diverticulum [...] index is 26.55 kg/m??. BMI Assessment: Normal [place] Body Weight: 136 pounds Percent [place] Body Weight: 121% Usual Body Weight: 166 [...] nursing Chewing/swallowing problems: No Food allergies/intolerances: none Cultural/Cheondoism food preferences: none Current diet appropriate? Yes until safe to use the enteral route Current intake sufficient to meet nutritional needs? No Pain affecting PO intake? No Estimated Nutrient Needs: Calories: 9393-2002 kcal/day, based on 25-30 kcal/kg Protein: 94 gm/day, based on 1.25 gm/kg Fluid: 2000 ml/day, based on 30 cc/kg Labs: Alb 3.0, TP 6.6 HGB A1C Date Value Ref Range Status 02/15/2019 5.6 5.7 Final Nutrition Risk: High Inadequate Oral Intake Yes Unintended Weight Loss No Loss of Body Fat not completed Muscle Wasting not completed Fluid Accumulation No Reduced Scene Shifter Strength not completed Discharge nutrition plan: Discharge needs assessed. Will provide/update discharge instructions as needed. (See Nutrition Prescription above) [address]Y [address] 03/19/21, 11:04 AM * Abdoulaye Jane MD - 03/19/2021 9:19 AM CDT [facility] GENERAL SURGERY DAILY PROGRESS NOTE Mandie Browne Amanda 65-year-old male Date of Service: 03/19/2021 SUBJECTIVE [...] male that presented to the ED at [facility] for complaints of severe lower abdominal/suprapubic abdominal pain associated with subjective fevers and chills. He also stated that he did have associated urinary frequency but denied any particles in the urine. He denied any change in bowel movements. He stated that the pain was so severe but relieved with pain medication twice in the emergency department at [facility]. He believes his last colonoscopy was close [...] COLONOSCOPY N/A 2013 ??? [facility] REPAIR Left [facility] ??? NECK/CHEST PROCEDURE UNLISTED Right [facility], re-built right side of neck. ??? TOTAL KNEE ARTHROPLASTY Bilateral ZANA Partial KR, done @ [facility] Social History Social History Socioeconomic History [...] Gatherings with Friends and Family: ??? Attends Cheondoism Services: ??? Active Member of Clubs or [...] 03/19/21842 Max: 2032 L/min Max taken time: 03/18/212016 Vital Most Recent Value First Value Weight [...] shifts: I/O last 3 completed shifts: In: 370 [I.V.:3600; Other:50; IV Piggyback:50] Out: 1976 [Urine:1550; [...] pt prior to discharge. All questions answered. [facility] home health to see pt tomorrow. * [...] bag and ring, and skin prep pads. [facility] resource numbers for wound nurse, home health [...] of Surgery: 03/18/2021 Surgeon: Margarita Sloan MD Automotive Sales Manager: Runner/Help Start: Cindy Hammond RN Circulating Nurse 1: Bianca Barclay RN Scrub Person 1: Susan Mcpherson, SKI EDGE PAINTER Scrub Person 2: Bharti Chávez LPN Pre-Op Diagnosis: perforated sigmoid diverticulitis with free air Post-Op Diagnosis: Same Procedure: Diagnostic laparoscopy, exploratory laparotomy with sigmoidectomy and colostomy (Hudson's procedure), suture repair of bladder, Briana VAC placement. Anesthesia Type: General Anesthesia Team: TOBACCO HANGER: Jolene Cross CRNA; David Ha CRNA EBL: Less than 30 mL Complications: None Drains: 15 Spanish Easton-Srinivasan drain Indication: Mandie Cotter is a [...] was then held in place using a Gilma. An elliptical incision was then made in [...] warm normal saline containing Ancef. A 15 Spanish Easton-Srinivasan drain was then placed through the [...] [facility] [id number] [place] [phone] Ilir Nelson PA [address] [place] [address] 10/22/2025 9:15 AM DIRECTOR IMAGING Office Visit [facility] [address] Mily Gan MD [address] [address] documented as of this encounter Procedures Procedure [...] CDT FINDINGS AND IMPRESSION: 1. ??After a porcelain finisher image was obtained, the bladder was allowed to fill with Isovue-370 by gravity until the patient felt a full bladder sensation. Numerous images were acquired for the procedure in the AP and bilateral oblique projections. Final images were obtained after allowing the bladder to empty. 2. ??Upstairs Maid radiograph demonstrates the patient is status post [...] mGy. FINDINGS AND IMPRESSION: 1. After a porcelain finisher image was obtained, the bladder was allowed to fill withIsovue- 370 by gravity until the patient felt a full bladder sensation.Numerous images were acquired for the procedure in the AP and bilateraloblique projections. Final images were obtained after allowing the bladderto empty. 2. Upstairs Maid radiograph demonstrates the patient is status post midlinelaparotomy with an underlying drain traversing the pelvis. An indwellingFoley catheter is in place. 3. Bladder capacity: 300 mL 4. The bladder fills with contrast without evidence of contrastextravasation. 5. A significant amount of residual contrast was noted in the bladderafter it was allowed to drain into the collection bag through theindwelling Mlulins catheter. Referred By: MARGARITA SLOAN Interpreted By: Moncho Cheng, 04/01/2021 1:25 PM Margarita Sloan MD FLUOROSCOPY Final Result * MAGNESIUM (03/22/2021 5:00 AM CDT) Pathologist [facility] MAGNESIUM 1.9 1.8 - 2.4 MG/DL 03/22/2021 6:07 AM CDT [facility] 03/22/2021 5:00 AM CDT Lita Hu MD LABORATORY Final Result [facility] [address] [place] [address], [place] [phone] * (ABNORMAL) CBC W/DIFF AUTOMATED (03/22/2021 5:00 AM CDT) WBC 8.4 4.8 - 10.8 x10'3/uL 03/22/2021 5:31 AM CDT [facility] RBC 3.87(L) 4.50 - 5.90 x10'6/uL 03/22/2021 5:31 AM CDT [facility] HGB 12.4(L) 13.5 - 17.5 G/DL 03/22/2021 5:31 AM CDT [facility] HCT 37.3(L) 41 - 53 % 03/22/2021 5:31 AM CDT [facility] MCV 96.4 80 - 100 FL 03/22/2021 5:31 AM CDT [facility] MCH 32.0 26.0 - 34.0 PG 03/22/2021 5:31 AM T [facility] MCHC 33.2 31.0 - 37.0 G/DL 03/22/2021 5:31 AM T [facility] RDW 12.9 11.5 - 14.5 % 03/22/2021 5:31 AM T [facility] PLT 225 150 - 350 x10'3/uL 03/22/2021 5:31 AM T [facility] CBC COMMENT AUTOMATED RBC MORPHOLOGY AND PLATELET EVALUATION NORMAL 03/22/2021 5:31 AM T [facility] NEUTROPHILS % 73.2(H) 50 - 70 % 03/22/2021 5:31 AM T [facility] LYMPHOCYTES % 16.9(L) 18 - 42 % 03/22/2021 5:31 AM T [facility] MONOCYTES % 8.7 2.0 - 11.0 % 03/22/2021 5:31 AM T [facility] EOSINOPHILS 0.8(L) 1.0 - 3.0 % 03/22/2021 5:31 AM T [facility] BASOPHILS 0.4 0.0 - 1.0 % 03/22/2021 5:31 AM T [facility] ABS. NEUTROPHILS TOTAL 6.11 1.69 - 7.81 x10'3/uL 03/22/2021 5:31 AM CDT [facility] 03/22/2021 5:00 AM CDT us Lita Hu MD LABORATORY Final Result [facility] [address] [place] [address], [place] [phone] * (ABNORMAL) BASIC METABOLIC PANEL (03/22/2021 5:00 AM CDT) Pathologist [facility] GLUCOSE 97 70 - 99 MG/DL 03/22/2021 5:44 AM CDT [facility] BUN 6(L) 7 - 18 MG/DL 03/22/2021 5:44 AM CDT [facility] CREATININE S/P/B 0.80 0.7 - 1.3 MG/DL 03/22/2021 5:44 AM CDT [facility] SODIUM S/P/B 139 136 - 145 MMOL/L 03/22/2021 5:44 AM CDT [facility] POTASSIUM S/P/B 3.5 3.5 - 5.1 MMOL/L 03/22/2021 5:44 AM CDT [facility] CHLORIDE S/P/B 101 100 - 108 MMOL/L 03/22/2021 5:44 AM CDT [facility] CO2 28.3 21 - 32 MMOL/L 03/22/2021 5:44 AM CDT [facility] CALCIUM S/P/B 8.6 8.5 - 10.1 MG/DL 03/22/2021 5:44 AM CDT [facility] ANION GAP 9.7 5 - 15 MMOL/L 03/22/2021 5:44 AM CDT [facility] BUN CREATININE RATIO 7.5 6 - 26 03/22/2021 5:44 AM CDT [facility] EGFR NON-AFR. AMER. >90 >90 ML/MIN/1.7 3 M2 03/22/2021 5:[address] [facility] EGFR AFR. AMER. >90 >90 ML/MIN/1.7 3 M2 03/22/2021 5:44 AM CDT [facility] Comment: NOTE: eGFR is not calculated for patients <18 years of age. This is an estimated GFR (CKD EPI) and should not be used for calculating drug doses. 03/22/2021 5:00 AM CDT us Lita Hu MD LABORATORY Final Result Performing Organization Address City/[facility]/ZIP Co de Phone Number [facility] [address] [place] [address], * (ABNORMAL) PHOSPHORUS, INORGANIC PHOSPHATE (03/21/2021 2:55 AM CDT) PHOSPHORUS 2.1(L) 2.5 - 4.9 MG/DL 03/21/2021 4:00 AM CDT [facility] 03/21/2021 2:55 AM CDT Lita Hu MD LABORATORY Final Result [facility] [address] [place] [address], [place] [phone] * MAGNESIUM (03/21/2021 2:55 AM CDT) MAGNESIUM 2.0 1.8 - 2.4 MG/DL 03/21/2021 4:00 AM CDT [facility] 03/21/2021 2:55 AM CDT us Lita Hu MD LABORATORY Final Result [facility] [address] [place] [address], [place] [phone] * (ABNORMAL) CBC W/DIFF AUTOMATED (03/21/2021 2:55 AM CDT) [facility] WBC 8.6 4.8 - 10.8 x10'3/uL 03/21/2021 3:55 AM CDT [facility] RBC 3.58(L) 4.50 - 5.90 x10'6/uL 03/21/2021 3:55 AM CDT [facility] HGB 11.6(L) 13.5 - 17.5 G/DL 03/21/2021 3:55 AM CDT [facility] HCT 35.3(L) 41 - 53 % 03/21/2021 3:55 AM CDT [facility] MCV 98.6 80 - 100 FL 03/21/2021 3:55 AM CDT [facility] MCH 32.4 26.0 - 34.0 PG 03/21/2021 3:55 AM CDT [facility] MCHC 32.9 31.0 - 37.0 G/DL 03/21/2021 3:55 AM CDT [facility] RDW 13.6 11.5 - 14.5 % 03/21/2021 3:55 AM CDT [facility] PLT 182 150 - 350 x10'3/uL 03/21/2021 3:55 AM CDT [facility] CBC COMMENT AUTOMATED RBC MORPHOLOGY AND PLATELET EVALUATION NORMAL 03/21/2021 3:55 AM CDT [facility] NEUTROPHILS % 72.6(H) 50 - 70 % 03/21/2021 3:55 AM CDT [facility] LYMPHOCYTES % 19.2 18 - 42 % 03/21/2021 3:55 AM CDT [facility] MONOCYTES % 7.5 2.0 - 11.0 % 03/21/2021 3:55 AM CDT [facility] EOSINOPHILS 0.5(L) 1.0 - 3.0 % 03/21/2021 3:55 AM CDT [facility] BASOPHILS 0.2 0.0 - 1.0 % 03/21/2021 3:55 AM CDT [facility] ABS. NEUTROPHILS TOTAL 6.21 1.69 - 7.81 x10'3/uL 03/21/2021 3:55 AM CDT [facility] 03/21/2021 2:55 AM CDT us Lita Hu MD LABORATORY Final Result [facility] [address] [place] [address], [place] [phone] * (ABNORMAL) BASIC METABOLIC PANEL (03/21/2021 2:55 AM CDT) GLUCOSE 122(H) 70 - 99 MG/DL 03/21/2021 4:06 AM CDT [facility] BUN 9 7 - 18 MG/DL 03/21/2021 4:06 AM CDT [facility] CREATININE S/P/B 0.70 0.7 - 1.3 MG/DL 03/21/2021 4:06 AM CDT [facility] SODIUM S/P/B 140 136 - 145 MMOL/L 03/21/2021 4:06 AM CDT [facility] POTASSIUM S/P/B 3.1(L) 3.5 - 5.1 MMOL/L 03/21/2021 4:06 AM T [facility] CHLORIDE S/P/B 106 100 - 108 MMOL/L 03/21/2021 4:06 AM T [facility] CO2 28.0 21 - 32 MMOL/L 03/21/2021 4:06 AM T [facility] CALCIUM S/P/B 7.7(L) 8.5 - 10.1 MG/DL 03/21/2021 4:06 AM T [facility] ANION GAP 6.0 5 - 15 MMOL/L 03/21/2021 4:06 AM T [facility] BUN CREATININE RATIO 12.9 6 - 26 03/21/2021 4:06 AM T [facility] EGFR NON-AFR. AMER. >90 >90 ML/MIN/1.7 3 M2 03/21/2021 4:06 AM T [facility] EGFR AFR. AMER. >90 >90 ML/MIN/1.7 3 M2 03/21/2021 4:06 AM [facility] Comment: NOTE: eGFR is not calculated for patients <18 years of age. This is an estimated GFR (CKD EPI) and should not be used for calculating drug doses. 03/21/2021 2:55 AM CDT us Lita Hu MD LABORATORY Final Result [facility] [address] [place] [address], [place] [phone] * (ABNORMAL) COMPREHENSIVE METABOLIC PANEL (03/20/2021 5:15 AM CDT) [facility] GLUCOSE 213(H) 70 - 99 MG/DL 03/20/2021 6:01 AM CDT [facility] BUN 17 7 - 18 MG/DL 03/20/2021 6:01 AM [facility] CREATININE S/P/B 0.80 0.7 - 1.3 MG/DL 03/20/2021 6:01 AM [facility] SODIUM S/P/B 142 136 - 145 MMOL/L 03/20/2021 6:01 AM [facility] POTASSIUM S/P/B 3.7 3.5 - 5.1 MMOL/L 03/20/2021 6:01 AM [facility] CHLORIDE S/P/B 108 100 - 108 MMOL/L 03/20/2021 6:01 AM [facility] CO2 29.1 21 - 32 MMOL/L 03/20/2021 6:01 AM [facility] CALCIUM S/P/B 7.6(L) 8.5 - 10.1 MG/DL 03/20/2021 6:01 AM [facility] BILIRUBIN TOTAL S/P/B 0.8 0.2 - 1.2 MG/DL 03/20/2021 6:01 AM [facility] Comment: THIS ASSAY IS NOT RECOMMENDED FOR PATIENTS UNDERGOING TREATMENT WITH ELTROMBOPAG DUE TO THE POTENTIAL FOR FALSELY ELEVATED RESULTS. TOTAL PROTEIN S/P/B 6.4 6.4 - 8.2 G/DL 03/20/2021 6:01 AM [facility] ALBUMIN S/P/B 2.7(L) 3.4 - 5.0 G/DL 03/20/2021 6:01 AM [facility] AST 36 15 - 37 U/L 03/20/2021 6:01 AM [facility] ALT 33 16 - 60 U/L 03/20/2021 6:01 AM [facility] ALKALINE PHOSPHATASE S/P/B 33(L) 50 - 136 U/L 03/20/2021 6:01 AM CDT [facility] ANION GAP 4.9(L) 5 - 15 MMOL/L 03/20/2021 6:01 AM CDT [facility] BUN CREATININE RATIO 21.2 6 - 26 03/20/2021 6:01 AM T [facility] A/G RATIO 0.7(L) 1.0 - 2.0 RATIO 03/20/2021 6:01 AM T [facility] EGFR NON-AFR. AMER. >90 >90 ML/MIN/1.7 3 M2 03/20/2021 6:01 AM CDT [facility] EGFR AFR. AMER. >90 >90 ML/MIN/1.7 3 M2 03/20/2021 6:01 AM T [facility] Comment: NOTE: eGFR is not calculated for patients <18 years of age. This is an estimated GFR (CKD EPI) and should not be used for calculating drug doses. 03/20/2021 5:15 AM CDT us Sean Marquez APRN LABORATORY Final Re sult [facility] [address] [place] [id number], * (ABNORMAL) CBC W/DIFF AUTOMATED (03/20/2021 5:15 AM CDT) WBC 11.2(H) 4.8 - 10.8 x10'3/uL 03/20/2021 5:46 AM CDT [facility] RBC 3.44(L) 4.50 - 5.90 x10'6/uL 03/20/2021 5:46 AM CDT [facility] HGB 11.1(L) 13.5 - 17.5 G/DL 03/20/2021 5:46 AM CDT [facility] HCT 34.1(L) 41 - 53 % 03/20/2021 5:46 AM CDT [facility] MCV 99.1 80 - 100 FL 03/20/2021 5:46 AM CDT [facility] MCH 32.3 26.0 - 34.0 PG 03/20/2021 5:46 AM CDT [facility] MCHC 32.6 31.0 - 37.0 G/DL 03/20/2021 5:46 AM CDT [facility] RDW 13.6 11.5 - 14.5 % 03/20/2021 5:46 AM CDT [facility] PLT 165 150 - 350 x10'3/uL 03/20/2021 5:46 AM T [facility] CBC COMMENT AUTOMATED RBC MORPHOLOGY AND PLATELET EVALUATION NORMAL 03/20/2021 5:46 AM CDT [facility] NEUTROPHILS % 80.1(H) 50 - 70 % 03/20/2021 5:46 AM CDT [facility] LYMPHOCYTES % 12.8(L) 18 - 42 % 03/20/2021 5:46 AM CDT [facility] MONOCYTES % 7.0 2.0 - 11.0 % 03/20/2021 5:46 AM CDT [facility] EOSINOPHILS 0.0(L) 1.0 - 3.0 % 03/20/2021 5:46 AM CDT [facility] BASOPHILS 0.1 0.0 - 1.0 % 03/20/2021 5:46 AM CDT [facility] ABS. NEUTROPHILS TOTAL 9.00(H) 1.69 - 7.81 x10'3/uL 03/20/2021 5:46 AM CDT [facility] 03/20/2021 5:15 AM CDT Sean Marquez APRN LABORATORY Final Re sult Performing Organization Address [facility]/ZIP Co de Phone Number [facility] [address] [place] [address], * MAGNESIUM (03/19/2021 5:45 AM CDT) MAGNESIUM 2.0 1.8 - 2.4 MG/DL 03/19/2021 7:12 AM CDT [facility] 03/19/2021 5:45 AM CDT Margarita Sloan MD LABORATORY Final Result Performing Organization Address [facility] Co de Phone Number [facility] [address] [place] [address], [place] [phone] * (ABNORMAL) COMPREHENSIVE METABOLIC PANEL (03/19/2021 5:45 AM CDT) GLUCOSE 153(H) 70 - 99 MG/DL 03/19/2021 7:12 AM CDT [facility] BUN 16 7 - 18 MG/DL 03/19/2021 7:12 AM CDT [facility] CREATININE S/P/B 0.80 0.7 - 1.3 MG/DL 03/19/2021 7:12 AM CDT [facility] SODIUM S/P/B 137 136 - 145 MMOL/L 03/19/2021 7:12 AM CDT [facility] POTASSIUM S/P/B 4.1 3.5 - 5.1 MMOL/L 03/19/2021 7:12 AM CDT [facility] CHLORIDE S/P/B 104 100 - 108 MMOL/L 03/19/2021 7:12 AM [facility] CO2 25.3 21 - 32 MMOL/L 03/19/2021 7:12 AM [facility] CALCIUM S/P/B 7.9(L) 8.5 - 10.1 MG/DL 03/19/2021 7:12 AM [facility] BILIRUBIN TOTAL S/P/B 1.3(H) 0.2 - 1.2 MG/DL 03/19/2021 7:12 AM [facility] Comment: THIS ASSAY IS NOT RECOMMENDED FOR PATIENTS UNDERGOING TREATMENT WITH ELTROMBOPAG DUE TO THE POTENTIAL FOR FALSELY ELEVATED RESULTS. TOTAL PROTEIN S/P/B 6.6 6.4 - 8.2 G/DL 03/19/2021 7:12 AM [facility] ALBUMIN S/P/B 3.0(L) 3.4 - 5.0 G/DL 03/19/2021 7:12 AM [facility] AST 30 15 - 37 U/L 03/19/2021 7:12 AM [facility] ALT 32 16 - 60 U/L 03/19/2021 7:12 AM [facility] ALKALINE PHOSPHATASE S/P/B 31(L) 50 - 136 U/L 03/19/2021 7:12 AM [facility] ANION GAP 7.7 5 - 15 MMOL/L 03/19/2021 7:12 AM [facility] BUN CREATININE RATIO 20.0 6 - 26 03/19/2021 7:12 AM [facility] A/G RATIO 0.8(L) 1.0 - 2.0 RATIO 03/19/2021 7:12 AM CDT [facility] EGFR NON-AFR. AMER. >90 >90 ML/MIN/1.7 3 M2 03/19/2021 7:12 AM CDT [facility] EGFR AFR. AMER. >90 >90 ML/MIN/1.7 3 M2 03/19/2021 7:12 AM CDT [facility] Comment: NOTE: eGFR is not calculated for patients <18 years of age. This is an estimated GFR (CKD EPI) and should not be used for calculating drug doses. 03/19/2021 5:45 AM CDT us Margarita Sloan MD LABORATORY Final Result [facility] [address] [id number], [place] [phone] * (ABNORMAL) CBC W/DIFF AUTOMATED (03/19/2021 5:45 AM CDT) WBC 9.8 4.8 - 10.8 x10'3/uL 03/19/2021 7:03 AM CDT [facility] RBC 3.77(L) 4.50 - 5.90 x10'6/uL 03/19/2021 7:03 AM CDT [facility] HGB 12.0(L) 13.5 - 17.5 G/DL 03/19/2021 7:03 AM CDT [facility] HCT 36.5(L) 41 - 53 % 03/19/2021 7:03 AM CDT [facility] MCV 96.8 80 - 100 FL 03/19/2021 7:03 AM CDT [facility] MCH 31.8 26.0 - 34.0 PG 03/19/2021 7:03 AM CDT [facility] MCHC 32.9 31.0 - 37.0 G/DL 03/19/2021 7:03 AM CDT [facility] RDW 13.3 11.5 - 14.5 % 03/19/2021 7:03 AM CDT [facility] PLT 195 150 - 350 x10'3/uL 03/19/2021 7:03 AM CDT [facility] NEUTROPHILS % 88.7(H) 50 - 70 % 03/19/2021 7:06 AM CDT [facility] LYMPHOCYTES % 6.4(L) 18 - 42 % 03/19/2021 7:06 AM CDT [facility] MONOCYTES % 4.9 2.0 - 11.0 % 03/19/2021 7:06 AM CDT [facility] EOSINOPHILS 0.0(L) 1.0 - 3.0 % 03/19/2021 7:06 AM CDT [facility] BASOPHILS 0.0 0.0 - 1.0 % 03/19/2021 7:06 AM CDT [facility] ABS. NEUTROPHILS TOTAL 8.69(H) 1.69 - 7.81 x10'3/uL 03/19/2021 7:06 AM T [facility] PLT MORPH. 1+ 03/19/2021 7:06 AM CDT [facility] Comment:GIANT PLATELETS RBC MORPHOLOGY NORMAL 03/19/2021 7:06 AM T [facility] 03/19/2021 5:45 AM CDT Margarita Sloan MD LABORATORY Final Result [facility] [address] [place] [address], [place] [phone] * XR CHEST PORTABLE (03/19/2021 1:16 AM [...] DESCRIPTION PERITONEAL FLUID 03/20/2021 9:59 AM CDT [facility] SPECIAL REQUESTS SWAB 03/20/2021 9:59 AM CDT [facility] GRAM STAIN RESULT NO WHITE BLOOD CELLS SEEN 03/19/2021 12:10 PM CDT [facility] GRAM STAIN RESULT NO ORGANISMS SEEN 03/19/2021 12:10 PM CDT [facility] CULTURE RESULT SPARSE GROWTH OF ENTEROBACTER CLOACAE COMPLEX (A) 03/24/2021 12:36 PM CDT [facility] CULTURE RESULT SPARSE GROWTH OF BACTEROIDES THETAIOTAOMICRON BETA LACTAMASE POSITIVE SUSCEPTIBILTY NOT ROUTINELY PERFORMED. SAVING ISOLATE FOR 5 DAYS. CONTACT MICROBIOLOGY DEPARTMENT IF FURTHER WORKUP IS INDICATED. (A) 03/24/2021 12:36 PM CDT [facility] CULTURE RESULT NOTE: ANAEROBIC CULTURES ARE ROUTINELY SCREENED FOR BOTH AEROBIC AND ANAEROBIC ORGANISMS. 03/24/2021 12:36 PM CDT [facility] Body fluid specimen (specimen) PERITONEAL FLUID SPECIMEN / Unknown 03/18/2021 3:53 PM CDT Narrative Organism Antibiotic Method Susceptibility Enterobacter cloacae complex CEFTRIAXONE KAYLEN (MICI) <=1: Sensitive Enterobacter cloacae complex CEFTAZIDIME KAYLEN (MICI) <=1: Sensitive Enterobacter cloacae complex CEFAZOLIN AKYLEN (MICI) >=64: Resistant Enterobacter cloacae complex GENTAMICIN KAYLEN (MICI) <=1: Sensitive Enterobacter cloacae complex LEVOFLOXACIN KAYLEN (MICI) <=0.12: Sensitive Enterobacter cloacae complex PIPRACIL/TAZO KAYLEN (MICI) <=4: Sensitive Enterobacter cloacae complex TRIMETH-SULFAMETH. KAYLEN (M ICI) <=20: Sensitive us Margarita Sloan MD MICROBIOLOGY - GENERAL ORDER ZAMZAM Final Result [facility] [address] [place] [address], [place] [phone] * TYPE & SCREEN (03/18/2021 2:33 PM CDT) ABO/RH O POSITIVE 03/18/2021 3:52 PM CDT [facility] ANTIBODY SCREEN NEGATIVE 03/18/2021 4:14 PM CDT [facility] SAMPLE EXPIRATION 03/21/2021,2 359 03/18/2021 3:52 PM CDT [facility] 03/18/2021 2:33 PM CDT us Margarita Sloan MD BLOOD BANK TEST ORDERABLES F inal Result [facility] [address] [place] [address], * Pathology (03/18/2021 7:06 AM CDT) COPATH REPORT ?[facility] ? [address] [facility] [[email or web address] ?[place] [address] ? [phone] ? Department of Pathology ? Pathology Report ? Surgical Pathology Report Patient Name: MANDIE COTTER ? : 1955 (Age: 65) ? Location: [id number] Gender: M ?Collected Date: 03/18/2021 Med Rec #: [id number] ?Date Received: 03/19/2021 Date Reported: 03/22/2021 Provider: [...] lymph nodes ?SO/plb :pb Billing Fee Code(s): 38439 [facility] Tissue specimen (specimen) COLON STRUCTURE / Unknown 03/18/2021 4:54 PM CDT Comment:No formalin on speci men us Margarita Sloan MD PATHOLOGY/CYTOLOGY ORDERABLE S Final Result [facility] [address] [place] [address], documented in this encounter Visit Diagnoses Not on filedocumented in this encounter Admitting Diagnoses Diagnosis Perforated diverticulum documented in this encounter Administered Medications Inactive Administered Medications - up to 3 most recent administrations Medication Order MAR Action Action Date Dose Rate Site BUpivacaine-EPINEPHrin e PF 0.5% -1:324231 injection As needed, Starting on Yamilex 03/18/21 at 1524, Until Yamilex 03/18/21 at 1845, Intra-Op Given 03/18/2021 3:24 PM CDT 8 mLs Incision Site ceFAZolin (ANCEF) in NS 1000 mL irrigation solution As needed, Starting on Yamilex 03/18/21 at 1542, Until Yaimlex 03/18/21 at 1845, Intra-Op Given 03/18/2021 3:42 PM CDT 1 g Operative Site heparin (porcine) injection 5,000 Units 5,000 Units, [...] Given 03/20/2021 8:30 PM CDT 0.5 mg pantoprazole (PROTONIX) 40 mg in sodium chloride [...] 1:46 PM CDT 3.375 g 12.5 mL/hr documented in this encounter Active and [...] RN) 0847 (Given - Provider: Violet Rinaldi RN)2119 (Given - Provider: Ruma Treviño RN) 0930 [...] Violet Rinaldi RN)2120 (New Bag - Provider: Ruma Treviño RN) 0133 (Infusion Stop Time - [...] hour scheduled, 6 doses, First dose on 03/21/21 at 0815, Last dose on 03/21/21 at 1300, Give total of 60 mEq [...] (New Bag - Provider: Tonja Morales RN) 0449 (New Bag - Provider: Ruma Treviño RN)1437 (New Bag - Provider: Delmy Shirley RN)2350 (New Bag - Provider: Ruma Treviño RN) PRN Medication Order 03/21/2021 03/22/2021 03/23/2021 acetaminophen (TYLENOL) tablet 650 mg 650 mg, Oral, Every 4 hours PRN, Mild pain (Scale 1 - 3), Headaches, Fever, greater than 101, Starting on Yamilex 03/18/21 at 1350, Until Mon03/23/21 at 1518, Maximum dose of acetaminophen is 4000 mg from all sources in 24 hours. HYDROmorphone (DILAUDID) injection 0.2 mg 0.2 mg, Intravenous, Every 4 hours PRN, Moderate pain (Scale 4 - 7), Starting on 03/20/21 at 1108, Until Mon03/23/21 at 1518, Administer slowly over at least 2-3 minutes. HYDROmorphone (DILAUDID) injection 0.5 mg 0.5 mg, Intravenous, Every 4 hours PRN, Severe pain (Scale 8 - 10), Starting on 03/20/21 at 1108, Until Mon03/23/21 at 1518, Administer slowly over at least 2-3 minutes. 2013 (Given - Provider: Ruma Treviño RN) 2133 (Given - Provider: Ruma Treviño RN) naLOXone (NARCAN) injection 0.4 mg 0.4 mg, Intravenous, As needed, Opioid reversal, Starting on Yamilex 03/18/21 at 1351, Until Mon03/23/21 at 1518 ondansetron (ZOFRAN) injection 4 mg 4 mg, Intravenous, Every 8 hours PRN, Nausea, Vomiting, Starting on Yamilex 03/18/21 at 1351, Until Tu03/23/21 at 1518, IV push over 2-5 minutes. Linked Groups Order Group 1: heparin (porcine) injection 5,000 UnitsJump to med 5,000 Units, Subcutaneous, Every 12 hours scheduled (2 times per day), First dose on Mon03/19/21 at 2100, Until Discontinued And Moderate Risk for VTE (COMPLETED) documented in this encounter Care Teams Cup Setter Lockstitch Relationship Specialty Start Date End Date Jeremy Castanon MD PCP - General INTERNAL MEDICINE 01/15/20 02/09/23 documented as of this encounter
--- OUTSIDE RECORDS SUMMARY | 2024-11-02 08:13 | XMS_ITS | Encounter Summary ---
Author Organization [facility] Address [address] [place] [address]. [place], [place] [address] [place] [address] Care Team Providers Care Assistant Corporate Controller Name Role Phone Lorie Chan MD Primary Care Provider [phone] Reason for Visit * Auth/Cert Specialty Diagnoses / Procedures Referred By Shelby jama Referred To Contact Diagnoses Pharyngoesophageal dysphagia Dysphagia Procedures UPPER GI ENDOSCOPY,DIAGNOSIS EGD Referral ID Status Reason Start Date Expiration Date Visits Re quested Visits Authorized [id number] 1 1 Encounter Details Date Type Department Care Team (Late st Contact Info) Description 03/10/2021 8:54 AM CDT Anesthesia Event [facility] [address] [place] [address] Meredith Villagran CRNA [address] [place] [address] Bharti Juarez CRNA [address] [place] [address] Anesthesia Record Procedure Summary Procedure Name Responsible Anesthesiologist Anesthesia Start Time Anesthesia Stop Time EGD WITH BIOPSY AND DILATION (Esophagus) Meredith Villagran CRNA 03/10/21 0854 03/10/21 0915 Events Date Time Event Comment 03/10/2021 0728 0728 AN BINDERY HELPER Prepped 0854 An Start Patient ID and consent checked and patient reassessed. 0857 An Start Data 0857 Nasal Cannula Applied 0858 Anesthesia Ready 0915 Nasal Cannula Removed 0915 an stop data 0915 An Stop 0915 AN Immediate Reassess The pa tient was reevaluated immediately before sedation or regional anesthesia. Meds Name Total benzocaine (HURRICAINE) 20% mouth soluti on 1 spray propofol (DIPRIVAN) 200 mg/20 mL injecti on 80 mg lidocaine (PF) (XYLOCAINE) 1% injection 70 mg midazolam 2 mg/2 mL injection 1 mg lactated ringers infusion 300 mL * Agents Name O2 N2O * Blood No blood administrations on file. 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 Gender Identity Not on file Sexual [...] 10/02/2021 12:38 PM Annette Mercer RN Active documented in this encounter OR Notes * Anesthesia Postprocedure Evaluation - Meredith Villagran CRNA - 03/10/2021 9:15 AM CDT Anesthesia Post-op Note Natan Patel Procedure(s): EGD WITH BIOPSY AND DILATION (N/A Esophagus) Anesthesia type: MAC Vitals: 03/10/21800 BP: 133/77 Vitals: 03/10/21800 Pulse: 65 Vitals: 03/10/21800 Resp: 18 Vitals: 03/10/21800 Temp: 36 ??C Vitals: 03/10/21800 SpO2: 100% Patient Location: Phase II/Outpatient Level of Consciousness: awake Pain Management: adequate analgesia Airway Patency: patent Respiratory Status: acceptable Cardiovascular Status: acceptable Post-Op Nausea: none Postoperative Hydration: euvolemic Complications: no anesthesia complication * Anesthesia Preprocedure Evaluation - Meredith Villagran CRNA - 03/02/2021 9:09 AM CDT Anesthesia ROS/MED History Reviewed: Patient summary , Nursing notes , Family history anesthesia, Anesthesia history , Medications Pre-Anesthetic State: alert, awake and responds appropriately Pulmonary (+) sleep apnea, smoker Cardiovascular Exercise tolerance:good (+) hyperlipidemia Neuro/Psych neg neuro/psych ROS GI/Hepatic/Renal neg GI/hepatic/renal ROS Endo/Other neg endo/other ROS Physical Evaluation Airway Mallampati: III TM Distance: >3 FB Neck ROM: normal Dental (upper dentures) Pulmonary Pulmonary exam normal Breath sounds clear to auscultation Cardiovascular Rhythm: regular Rate: normal Cardiovascular exam normal Anesthesia Plan ASA 2 Intravenous Induction Anesthesia type: MAC Informed Consent Anesthetic plan and risks discussed with patient of whom consent was obtained. Consent of blood products not discussed. . Cosigned by Cody Randolph MD at 05/07/2021 10:47 AM CDT documented in this encounter Plan of Treatment Upcoming Encounters Date Type Department Care Team (Late st Contact Info) Description 01/27/2025 7:00 AM CDT Office Visit [facility] Family & Internal Medicine [facility] [address] [place] [address] [place] [address] [place] [address] 10/22/2025 9:15 AM SHEEP FARMER Office Visit [facility] [address] [phone] Mily Gan MD [address] [id number] documented as of this encounter Goals Goal [...] MAR Action Action Date Dose Rate Site benzocaine 20 % (HURRICAINE) 20 % mouth solution PRN, Starting on Mon03/10/21 at 0857, Until Mon03/10/21 at 0915, Anesthesia Intra-Op Given 03/10/2021 8:57 AM CDT 1 spray lidocaine (PF) (XYLOCAINE) 1 % injection PRN, Starting on Mon03/10/21 at 0857, Until Mon03/10/21 at 0915, Anesthesia Intra-Op Given 03/10/2021 8:57 AM CDT 70 mg midazolam (VERSED) injection PRN, Starting on Mon03/10/21 at 0857, Until Mon03/10/21 at 09, Anesthesia Intra-Op Given 03/10/2021 8:57 AM CDT 1 mg propofol (DIPRIVAN) IV bolus PRN, Starting on Mon03/10/21 at 0859, Until Mon03/10/21 at 09, Anesthesia Intra-Op Given 03/10/2021 9:02 AM CDT 30 mg Given 03/10/2021 8:59 AM CDT 50 mg documented in this encounter Care Teams Assistant Corporate Controller Relationship Specialty Start Date End Date Lorie Chan MD PCP - General INTERNAL MEDICINE 01/15/20 02/09/23 documented as of this encounter
--- OUTSIDE RECORDS SUMMARY | 2024-11-02 08:13 | XMS_ITS | Encounter Summary ---
Author Organization [facility] Address [address] [place] [address]. 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 Gender Identity Not on file [...] Description 01/27/2025 7:00 AM CDT Office Visit [facility] Family & Internal Medicine [facility] [address] [place] [address] [place] [address] [place], [place] [id number] 10/22/2025 9:15 AM FOOTWEAR PRODUCTION MACHINE OPERATOR Office Visit [facility] [phone] Mily Gan MD [address] [address] documented as of this encounter Visit Diagnoses Not on filedocumented in this encounter Care Teams Core Paster Relationship Specialty Start Date End Date Lorie Chan MD PCP - General INTERNAL MEDICINE 01/15/20 02/09/23 documented as of this encounter
--- OUTSIDE RECORDS SUMMARY | 2024-11-02 08:13 | XMS_ITS | Encounter Summary ---
Author Organization [facility] Address [address] [place] [address]. 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 No / Unsure 03/10/2021 6:55 AM CDT documented as of this encounter Plan of Treatment Upcoming Encounters Date Type Department Care Team (Late st Contact Info) Description 01/27/2025 7:00 AM CDT Office Visit [facility] Family & Internal Medicine - [place] [address] [place] [address] [place] [address] [place], [place] [phone] 10/22/2025 9:15 AM ANIMAL LABORATORY HELPER [facility] [address] [place] [phone] Mily Gan MD [address] [address] documented as of this encounter Visit Diagnoses Not on filedocumented in this encounter Care Teams Retail Inventory Control Clerk Relationship Specialty Start Date End Date Lorie Chan MD PCP - General INTERNAL MEDICINE 01/15/20 02/09/23 documented as of this encounter
--- OUTSIDE RECORDS SUMMARY | 2024-11-02 08:13 | XMS_ITS | Encounter Summary ---
Author Organization [facility] Address [address] [place] [address]. 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 Name Role Phone Lorie Chan MD Primary Care Provider [phone] Reason for Referral * Imaging (Emergency) - Closed Specialty Diagnoses / Procedures Referred By Shelby t Referred To Contact RADIOLOGY Procedures CT ABD+PEL W IV CON ONLY Lauri Alanis MD,PHD [address] [place] [address] Phone: tel: fax: Referral ID Status Reason Start Date Expiration Date Visits Re quested Visits Authorized [id number] Closed 03/18/2021 04/18/2022 1 1 Reason for Visit * Reason Comments Abdominal Pain * Auth/Cert Specialty Diagnoses / Procedures Referred By Shelby t Referred To Contact Diagnoses Bowel perforation (CMS/HCC [facility]/HCC) Bowel perforation (CMS/HCC) Referral ID Status Reason Start Date Expiration Date Visits Re quested Visits Authorized [id number] 1 1 Encounter Details Date Type Department Care Team (Late st Contact Info) Description 03/18/2021 9:46 AM CDT - 03/18/2021 12:59 PM CDT Emergency [facility] Room [id number] [place] [id number] Lauri Alanis MD,PHD [address] [place], [place] [id number] Abdominal Pain Discharge Disposition: Transfer to Acute Care Hospital Social History Tobacco Use Types Packs/Day Years [...] file 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 No / Unsure 03/18/2021 9:38 AM CDT documented as of this encounter Last Filed Vital Signs Vital Sign Reading Time Taken Comments Blood Pressure 129/64 03/18/2021 12:00 PM CDT Pulse 86 03/18/2021 9:47 AM CDT Temperature 37.1 ??C (98.8 ??F) 03/18/2021 9:47 AM CD T Respiratory Rate 18 03/18/2021 9:47 AM CDT Oxygen Saturation 96% 03/18/2021 12:00 PM CDT Inhaled Oxygen Concentration - - Weight 72.6 kg (160 lb) 03/18/2021 9:47 AM CDT Height 167.6 cm (5' 6 ) 03/18/2021 9:47 AM CDT Body Mass Index 25.82 03/18/2021 9:47 AM CDT documented in this encounter Medications [...] Day Supply 20 tablet 1 09/22/20 21 meloxicam 15 MG tabletIndications:P rimary osteoarthritis involving multiple joints Take 1 tablet (15 mg total) by mouth daily. 90 tablet 1 1 03/23/20 21 [facility] (OSTEO BI-FLEX JOINT SHIELD OR) Take 1 tablet by mouth 2 (two) times daily. 03/24/20 21 senna-docusate 8.6-50 MG tablet [The details of the medication are not available because there are pending changes by a home health clinician.] 10 tablet 1 04/07/20 21 documented as of this encounter H&P Notes * Federico Amador MD - 03/18/2021 12:59 PM CDT Mandie Cotter 65-year-old male Date of Service: 03/18/2021 REASON FOR CONSULT: Perforated sigmoid diverticulitis with free air CHIEF COMPLAINT: Abdominal pain, fevers and chills HPI: Mandie Cotter is a 65-year-old male who noticed severe lower abdominal/suprapubic abdominalpain since last night associated with subjective fevers and chills. He also stated that he did haveassociated urinary frequency but denied any particles in the urine. He denies any change in bowel movements. He states that the pain was so severe but relieved with pain medication twice in the emergency department. He denies any nausea, vomiting, chest pain, upper respiratory symptoms or any otherpertinent issues or concerns. He believes his last colonoscopy was close to 10 years ago. He is unaware of a history of diverticulosis. He has never had any abdominal surgeries. He has had bilateral inguinal hernia repairs. CT of abdomen and pelvis reveals abdominal free air consistent with bowel perforation, approximately 3 x 3.7 cm dense stool ball in the sigmoid colon near the area of inflammation and air, several sigmoid diverticuli also in the region suggesting the source may be perforated diverticulum; air tracking in the mesentery to the upper abdomen including the subdiaphragmatic space. I personally reviewed the images with the reading radiologist and he believes the source is a perforated sigmoid diverticulitis however he is unsure if that 3.7 cm intraluminal density is a mass, stool ball or large blood clot or dissection from the diverticulum. I did have him review other areas of the bowel including the stomach and he does not see any evidence of perforation anywhere else. WBC is 13.7 thousand. His last meal was around 7 AM this morning. I have reviewed the past medical, surgical, social and family histories. PMH: Past Medical History: Diagnosis Date ??? Arthritis ??? Cervical stenosis of spine ??? Hyperlipidemia ??? Influenza vaccine administered ??? RANDY (obstructive sleep apnea) PSH: Past Surgical History: Procedure Laterality Date ??? COLONOSCOPY N/A 2013 ??? HERNIA REPAIR Right [facility] ??? HERNIA REPAIR Left [facility] ??? NECK/CHEST PROCEDURE UNLISTED Right [facility], re-built right side of neck. ??? TOTAL KNEE ARTHROPLASTY Bilateral ZANA Partial KR, done @ [facility] ALL: Allergies Allergen Reactions ??? Morphine Itching MEDS: Current: ??? HYDROmorphone Current Facility-Administered Medications: ??? HYDROmorphone (DILAUDID) 1 MG/ML injection, , , , No current outpatient medications on file. Facility-Administered Medications Ordered in Other Encounters: ??? acetaminophen (TYLENOL) tablet 650 mg, 650 mg, Oral, Q4H PRN, Christopher Engele, [employer] ??? [START ON 03/19/2021] docusate sodium (COLACE) capsule 100 mg, 100 mg, Oral, BID, Christopher Engele, [employer] ??? [START ON 03/19/2021] heparin (porcine) injection 5,000 Units, 5,000 Units, Subcutaneous, 2 times per day AND [COMPLETED] Moderate Risk for VTE, , , Once, Christopher Engele, [employer] ??? HYDROmorphone (DILAUDID) injection 0.2 mg, 0.2 mg, Intravenous, Q2H PRN, Garcíaopher Engele, [employer] ??? HYDROmorphone (DILAUDID) injection 0.5 mg, 0.5 mg, Intravenous, Q2H PRN, Christopher Engele, [employer] ??? naLOXone (NARCAN) injection 0.4 mg, 0.4 mg, Intravenous, PRN, Christopher Engele, [employer] ??? ondansetron (ZOFRAN) injection 4 mg, 4 mg, Intravenous, Q8H PRN, Christopher Engele, [employer] ??? piperacillin-tazobactam (ZOSYN) 3.375 g in sodium chloride 0.9 % 50 mL IVPB, 3.375 g, Intravenous, Q8H, Garcíaopher Engele, [employer] ??? polyethylene glycol (GLYCOLAX) packet 17 g, 17 g, Oral, Daily PRN, Christopher Engele, [employer] ??? sodium chloride 0.9% infusion, , Intravenous, Continuous, Christopher Engele, [employer] Social History Socioeconomic History ??? Marital status: [...] and Sexual Activity ??? Alcohol use: Yes Comment: Occasionally ??? Drug use: Never ??? [...] Gatherings with Friends and Family: ??? Attends Rastafarian Services: ??? Active Member of Clubs or [...] ??? Heart Father ??? Heart Disease Father REVIEW OF SYSTEMS: Review of Systems Constitutional: Positive for chills and fever. HENT: Negative. Eyes: Negative. Respiratory: Negative. Cardiovascular: Negative. Gastrointestinal: Negative. Endocrine: Negative. Genitourinary: Negative. Musculoskeletal: Negative. Skin: Negative. Allergic/Immunologic: Negative. Neurological: Negative. Hematological: Negative. Psychiatric/Behavioral: Negative. PHYSICAL EXAM: Blood pressure 129/64, pulse 86, temperature 98.8 ??F (37.1 ??C), temperature source Skin, resp. rate 18, height 5' 6 (1.676 m), weight 72.6 kg (160 lb), SpO2 96 %. Body mass index is 25.82 kg/m??. Physical Exam Constitutional: He is oriented [...] no distension and no mass. There is abdominaltenderness. There is rebound and guarding. Abdomen appears slightly firm, mild to moderate tenderness, there is guarding and rebound diffuselyconsistent with peritonitis. Musculoskeletal: General: Normal range of motion. Cervical back: Normal range of motion and neck supple. Neurological: He is alert and oriented to person, place, and time. Skin: Skin is warm and dry. He is not diaphoretic. Psychiatric: He has a normal mood and affect. His behavior is normal. Nursing note reviewed. LABS: [I reviewed the recent laboratories and pertinent values were noted.] Recent Labs Lab 03/18/21 0950 WBC 13.7* RBC 4.81 HGB 15.7 HCT 45.7 NA 137 K 4.0 CL 100 CO2 28.1 AGAP 8.9 BUN 19* CR 0.85 BUNCREATININ 22.4 GFRNON >90 GFR >90 GLU 122* CA 8.9 TP 8.4* ALB 4.3 TBIL 1.7* ALKP 50 AST 19 ALT 35 LIPASE 72* No results for input(s): APTT, INR, PTT in the last 168 hours. IMAGING: [I reviewed the digital images of the patient's imaging studies.] Radiology Results (Last 48 hours) 03/18/[address] ABD+PEL W IV CON [...] Interpreted By: Norman Smallwood, 03/18/2021 11:08 AM IMPRESSION: Mandie Cotter is a 65-year-old male with perforated sigmoid diverticulitis/perforated sigmoid (questionable mass) with free air and peritonitis. Diagnostic laparoscopy, possible exploratory laparotomy, sigmoidectomy/partial colectomy with colostomy ([facility]) is indicated. PLAN: Risks, benefits, alternatives and complications of a diagnostic laparoscopy, possible exploratory laparotomy, sigmoidectomy/partial colectomy with colostomy ([facility]); possible lavage with drain placement is indicated. Risks discussed include but not limited to bleeding, infection, incisional hernia, bowel obstruction, injury to adjacent structures such as bladder, ureter, bowel, spleen or other intra-abdominal viscera, wound healing issues, issues with ostomy, fistula, leak, abscess formation, DVT, pulmonary or cardiac complications, possible need for further procedure or surgery. He is aware that he will require another surgery to reanastomose the colon. He verbalized understanding and wishes to proceed. Informed consent obtained. After surgery, he will be admitted to the hospitalist service and continued on antibiotics. I spent 45 minutes today reviewing the patient's medical record, obtaining history, performing an exam, ordering medications, tests, and/or procedures, documenting in the medical record, referring and/or communicating with other health care providers, counseling and educating the patient/family/caregiver, reviewing and communicating test results and coordination of care. Thank you for the consult and for allowing me to participate in the care of this patient. If you have any further questions, please feel free to contact me. Federico Amador MD 03/18/2021 documented in this encounter ED Notes * Emilia Mays RN - 03/18/2021 12:50 PM CDT While attempting to give Dilaudid, the vial was not connected and the dose was accidentally pushed onto the floor. GINA Nath witnessed. Dose wasted. Additional dose pulled from pyxis. * Emilia Mays RN - 03/18/2021 12:42 PM CDT Spoke with terminal supervisor at [place] who transferred call to [facility]. Report given to GINA Gomes. Patientgoing to room 129. * Lauri Alanis MD,PHD - 03/18/2021 9:56 AM CDT EMERGENCY DEPARTMENT ENCOUNTER Chief Complaint Chief Complaint Patient presents with ??? Abdominal Pain History of Present Illness Provider at Bedside Date/Time Event User Comments 03/18/21 0948 Provider at Bedside Assessing Patient LAURI ALANIS 65-year-old male presenting to the emergency department with a complaint of abdominal pain. The onset was gradual. The duration since yesterday afternoon. It is located in the suprapubic abdomen and right lower quadrant. Is described as sharp. It is associated with dysuria, though he denies nausea,vomiting, diarrhea, constipation. Medical History ALLERGIES: Allergies Allergen Reactions ??? Morphine Itching MEDICATIONS: Prior to Admission medications Medication Sig Start Date End Date Taking? Authorizing Provider Ascorbic Acid (VITAMIN C) 100 MG tablet Take 100 mg by mouth daily. Doc Abstract aspirin 81 MG chewable tablet Chew 81 mg by mouth daily. Doc Abstract atorvastatin 40 MG tablet Take 1 tablet (40 mg total) by mouth nightly at bedtime. 01/12/21 Lorie Chan MD Cholecalciferol (VITAMIN D) 50 MCG (1999 UT) Cap Take 25 mcg by mouth daily. Doc Abstract CPAP SUPPLIES 1 Units by Does not apply route nightly at bedtime. Mask, tubing & filters 07/21/20 Lorie Chan MD meloxicam 15 MG tablet Take 1 tablet (15 mg total) by mouth daily. 01/12/21 Lorie Chan MD [facility] (OSTEO BI-FLEX JOINT SHIELD OR) Take 1 tablet by mouth 2 (two) times daily. Doc Abstract Vitamin E 400 units Tab Take 400 Units by mouth daily. Doc Abstract PAST MEDICAL HISTORY: Past Medical History: Diagnosis Date ??? Arthritis ??? Cervical stenosis of spine ??? Hyperlipidemia ??? Influenza vaccine administered ??? RANDY (obstructive sleep apnea) PAST SURGICAL HISTORY: Past Surgical History: Procedure Laterality Date ??? COLONOSCOPY N/A 2013 ??? HERNIA REPAIR Right [facility] ??? HERNIA REPAIR [facility] ??? NECK/CHEST PROCEDURE UNLISTED Right [facility], re-built right side of neck. ??? TOTAL KNEE ARTHROPLASTY Bilateral ZANA Partial KR, done @ [facility] FAMILY HISTORY: Family History Problem Relation Name Age of Onset ??? Arthritis in Adults Mother ??? Dementia Mother at the end per patient ??? Hypertension Mother ??? Cancer Father ??? Heart Father ??? Heart Disease Father SOCIAL HISTORY: Social History Tobacco Use ??? Smoking status: Current Every Day Smoker Packs/day: 0.50 Types: Cigarettes ??? Smokeless tobacco: Never Used Substance Use Topics ??? Alcohol use: Yes Comment: Occasionally ??? Drug use: Never Review of Systems Constitutional: Negative for chills and fever. Eyes: Negative for vision changes ENT: Negative for stridor, difficulty swallowing Respiratory: Negative for cough and shortness of breath. Cardiovascular: Negative for chest pain, Negative for leg swelling Gastrointestinal: See HPI Genitourinary: See HPI Musculoskeletal: Negative for back pain, Negative for joint swelling Neurological: Negative for dizziness and headaches. Integumentary: Negative for rash or wounds All other systems reviewed and are negative except as in HPI and as noted above Physical Exam Filed Vitals: 03/18/21 0947 03/18/21 1000 03/18/21 1100 03/18/21 1200 BP: 138/74 111/63 134/56 129/64 Pulse: 86 Resp: 18 Temp: 98.8 ??F (37.1 ??C) TempSrc: Skin SpO2: 98% 98% 99% 96% Weight: 72.6 kg (160 lb) Height: 5' 6 (1.676 m) CONSTITUTIONAL: Patient is awake, alert, in no acute distress, conversant HEAD AND FACE: Normocephalic, atraumatic EYES: EOMI, PERRL NECK: Supple, no JVD CARDIOVASCULAR: RRR, normal S1-S2, no clicks murmurs rubs or gallops are appreciated RESPIRATORY: No respiratory distress or tachypnea, clear to auscultation bilaterally without rales,rhonchi, wheezes ABDOMEN: Soft, mild to moderate suprapubic and right lower quadrant tenderness without guarding or rebound NEUROLOGIC: GCS 15, CN2-12 grossly intact, moves all extremities EXTREMITIES: Warm, no edema Diagnostic Studies / Procedures ELECTROCARDIOGRAMS: EKG 1008 Rate 80, normal sinus rhythm, no ectopy, normal intervals, normal axis, no ST-T wave changes Interpretation by me: normal EKG LABORATORY STUDIES: Results for orders placed or performed during the hospital encounter of 03/18/21 CBC W/DIFF AUTOMATED Result Value Ref Range WBC 13.7 (H) 4.4 - 11.0 x10'3/uL RBC 4.81 4.50 - 5.90 x10'6/uL HGB 15.7 14.0 - 17.5 G/DL HCT 45.7 41.5 - 50.4 % MCV 95.0 80.0 - 96.0 FL MCH 32.6 (H) 26.5 - 31.4 PG MCHC 34.4 31.9 - 34.8 G/DL RDW 12.8 12.3 - 14.3 % PLT 236 151 - 353 x10'3/uL MPV 10.9 9.7 - 11.9 FL RBC MORPHOLOGY NORMAL PLT MORPH. NORMAL WBC MORPHOLOGY NORMAL LYMPHOCYTES 10.6 (L) 15.8 - 45.0 % NEUTROPHILS 83.5 (H) 42.1 - 71.9 % MONOCYTES 5.1 (L) 5.7 - 12.5 % EOSINOPHILS 0.3 0.0 - 5.6 % BASOPHILS 0.2 0.0 - 1.3 % ABS. NEUTROPHILS TOTAL 11.39 (H) 1.40 - 6.00 x10'3/uL IMMATURE GRANS 0.3 0.0 - 0.5 % ABS. LYMPHOCYTES 1.45 0.80 - 4.70 x10'3/uL COMPREHENSIVE METABOLIC PANEL Result Value Ref Range GLUCOSE 122 (H) 70 - 99 MG/DL BUN 19 (H) 7 - 18 MG/DL CREATININE S/P/B 0.85 0.7 - 1.3 MG/DL SODIUM 137 136 - 145 MMOL/L POTASSIUM 4.0 3.5 - 5.1 MMOL/L CHLORIDE S/P/B 100 100 - 108 MMOL/L CO2 28.1 21 - 32 MMOL/L CALCIUM 8.9 8.5 - 10.1 MG/DL BILIRUBIN TOTAL S/P/B 1.7 (H) 0.2 - 1.2 MG/DL TOTAL PROTEIN S/P/B 8.4 (H) 6.4 - 8.2 G/DL ALBUMIN S/P/B 4.3 3.4 - 5.0 G/DL AST 19 15 - 37 U/L ALT 35 16 - 60 U/L ALKALINE PHOSPHATASE S/P/B 50 50 - 136 U/L ANION GAP 8.9 5 - 15 MMOL/L BUN CREATININE RATIO 22.4 6 - 26 A/G RATIO 1.0 1.0 - 2.0 RATIO eGFR Non-Afr. Amer. >90 >90 ML/MIN/1.73 M2 eGFR Afr. Amer. >90 >90 ML/MIN/1.73 M2 MAGNESIUM Result Value Ref Range MAGNESIUM 2.1 1.8 - 2.4 MG/DL PHOSPHORUS, INORGANIC PHOSPHATE Result Value Ref Range PHOSPHORUS 3.2 2.5 - 4.9 MG/DL LIPASE Result Value Ref Range LIPASE 72 (L) 73 - 393 UNITS/L URINALYSIS, AUTO, COMPLETE Result Value Ref Range COLOR (U) YELLOW TRANSPARENCY HAZY Specific [place] (U) 1.015 1.000 - 1.030 U PH [...] CULTURE IS NOT INDICATED CRYSTALS FEW /HPF LACTIC ACID Result Value Ref Range LACTIC ACID 1.4 0.4 - 2.0 MMOL/L CULTURE, BACTERIA, BLOOD Specimen: BLOOD Result Value Ref Range Spec. Description BLOOD Special Requests: NO SPECIAL REQUEST Culture Result: NO GROWTH <24 HRS CULTURE, BACTERIA, BLOOD Specimen: BLOOD Result Value Ref Range Spec. Description BLOOD Special Requests: NO SPECIAL REQUEST Culture Result: NO GROWTH <[address] ABD+PEL W IV CON ONLY Final Result by User, [id number] (03/18 1207) Addendum 1 of 1 by User, [id number] (03/18 8298) ADDENDUM: I reviewed the findings with Dr. Barajas at 1158 hours. Referred By: LAURI ALANIS Interpreted By: Norman Smallwood, 03/18/2021 12:00 PM Final IMAGING STUDIES: CT ABD+PEL W CON DATE: [...] Interpreted By: Norman Smallwood, 03/18/2021 11:08 AM ED Course / Medical Decision Making Patient presenting with a chief complaint of abdominal pain. I reviewed the patient's labs, which are significant for leukocytosis with neutrophil predominance I reviewed the radiologist's interpretation of the patient's radiologic diagnostics which is significant for abdominal free air, with the likely source being a perforated diverticulum I reviewed the patient's EKG, as above I discussed the patient with general surgery, Dr. Amadro, who stated the patient's condition was surgical and requested that I have the anaesthesia staff evaluate the patient I discussed the patient with anaesthesia staff who agree to perform the patient's anaesthesia I discussed the patient with the admitting provider Dr. Amador then requested a transfer to [facility] due to improved surgical equipment andassistance being available at [facility]. I discussed the patient with the hospitalist here, Dr. Mustafa, who is also covering [facility] in [place] I reviewed old medical records, obtained from care everywhere, as well as internal past medical records I interpreted the patient's pulse oximeter at rest, which is 98% on room air, which is normal and determined that this patient is not hypoxic I interpreted the patient's monitoring specialist as showing a sinus rhythm and hemodynamic stability I do not suspect sepsis given the patient's normal vital signs during his emergency department course. He has been made n.p.o. and treated with IV Zosyn and being given IV fluid bolus and started on a maintenance IV fluid rate. Critical care time time (40 minutes) spent evaluating, managing, documenting and providing care to the critical patient. This involved decision making of high complexity to assess, manipulate, and support vital organ system failure and/or to prevent further life threatening deterioration of the patient's condition. Time spent included being at the bedside, reviewing test results, discussing the case with staff, documenting the medical record and time spent with family members; excluding any procedures. Patient was at risk of sepsis and subsequent cardiopulmonary deterioration and multiorgan failure and without rapid treatment with antibiotics and emergent consultation to general surgery for source control. A scribe was present to assist with the documentation of the encounter. Scribe documentation was reviewed by me and is accurate. The elements of the HPI, review of systems, past medical history, pastsurgical history, past family history, social history, medication list, allergies, and examination documented above were personally obtained by me via direct interaction of the patient when possible,with the exception of circumstances or patient factors limiting my ability to do so, as above. In instances where nursing or other providers documented this information prior to my encounter, I personally confirmed the accuracy of this information to the best of my ability given the circumstances. Medications HYDROmorphone (DILAUDID) injection 0.3 mg (0.3 mg Intravenous Given 03/18/21 1003) iopamidol (ISOVUE-370) 76 % injection 75 mL (75 mLs Intravenous Given 03/18/21 1052) piperacillin-tazobactam (ZOSYN) 4.5 g in sodium chloride 0.9 % 100 mL IVPB (0 g Intravenous Infusion Stop Time 03/18/21 1221) lactated ringers infusion 2,000 mL (2,000 mLs Intravenous New Bag 03/18/21 1143) HYDROmorphone (DILAUDID) injection 0.5 mg (0.5 mg Intravenous Given 03/18/21 1245) Clinical Impression Intra-abdominal free air of unknown etiology (Primary) Disposition: Transfer to [facility] at the request of the surgeon Dr. Amador. The patient has a medicalcondition that requires further evaluation and treatment for stabilization. The nature of the condition, risks of transfer, and reason for transfer were discussed with the patient and staff at the receiving facility. The patient has had a medical screening examination and has been stabilized to thebest of my ability given the resources available here, in the absence of services not available at this facility. In my judgement, the evaluation and treatment of this patient, while thorough and complete to the best of my abilities, is potentially limited by the reduced resources available due to the COVID-19 pandemic. Lauri Alanis MD,PHD 03/18/21 1331 * Emilia Mays RN - 03/18/2021 9:48 AM CDT Patient ambulatory to ED with complaints of lower abdominal pain accompanied with urinary frequencyand painful urination. Patient denies any n/v/d. Tender on palpation. documented in this encounter Plan of Treatment Upcoming Encounters Date Type Department Care Team (Late st Contact Info) Description 01/27/2025 7:00 AM CDT Office Visit [facility] Family & Internal Medicine [facility] [id number] [place] [phone] [place] [address] [place], [place] [phone] 10/22/2025 9:15 AM CREDIT BALANCE SPECIALIST Office Visit [facility] [phone] Mily Gan MD [address] [phone] documented as of this encounter Procedures Procedure Name Priority Date/Time Associated Diagnosis Comments LACTIC ACID STAT 03/18/2021 11:50 AM CDT CULTURE, BACTERIA, BLOOD STAT 03/18/2021 11:50 AM CDT CULTURE, BACTERIA, BLOOD STAT 03/18/2021 11:[address] ABD+PEL W CON STAT 03/18/2021 10:5 4 AM CDT ECG 12-LEAD STAT 03/18/2021 10:08 AM CDT URINALYSIS, AUTO, COMPLETE STAT 03/18/2021 9:55 AM CDT COMPREHENSIVE METABOLIC PANEL STAT 03/18/2021 9:50 AM CDT CBC W/DIFF AUTOMATED STAT 03/18/2021 9:50 AM CDT PHOSPHORUS, INORGANIC PHOSPHATE STAT 03/18/2021 9:50 AM CDT MAGNESIUM STAT 03/18/2021 9:50 AM CDT LIPASE STAT 03/18/2021 9:50 AM CDT documented in this encounter Results * LACTIC ACID (03/18/2021 11:50 AM CDT) LACTIC ACID VENOUS 1.4 0.4 - 2.0 MMOL/L 03/18/2021 12:16 PM CDT [facility] 03/18/2021 11:5 0 AM CDT us Lauri Alanis MD,PHD LABORATORY Final Resu lt [facility] [address] [place] [address], [place] [phone] * CULTURE, BACTERIA, BLOOD (03/18/2021 11:50 AM CDT) SPEC DESCRIPTION BLOOD 03/18/2021 11:36 AM CDT [facility] SPECIAL REQUESTS NO SPECIAL REQUEST 03/18/2021 11:36 AM CDT [facility] CULTURE RESULT NO GROWTH 5 DAYS 03/23/2021 10:15 AM CDT [facility] BLOOD SPECIMEN OBTAINED FOR BLOOD CULTURE / Unknown 03/18/2021 11:50 AM CDT 03/18/2021 11:59 AM CDT Lauri Alanis MD,PHD MICROBIOLOGY - GENERAL ORD ERABLES Final Result Performing Organization Address [facility] Co de Phone Number [facility] [address] [place] [address], [place] [phone] [facility] [address] [place] [address], [place] [phone] * CULTURE, BACTERIA, BLOOD (03/18/2021 11:40 AM CDT) SPEC DESCRIPTION BLOOD 03/18/2021 11:36 AM CDT [facility] SPECIAL REQUESTS NO SPECIAL REQUEST 03/18/2021 11:36 AM CDT [facility] CULTURE RESULT NO GROWTH 5 DAYS 03/23/2021 10:15 AM CDT [facility] BLOOD SPECIMEN OBTAINED FOR BLOOD CULTURE / Unknown 03/18/2021 11:40 AM CDT 03/18/2021 11:59 AM CDT Lauri Alanis MD,PHD MICROBIOLOGY - GENERAL ORD ERABLES Final Result Performing Organization Address [facility] Co de Phone Number [facility] [address] [place] [address], [place] [phone] [facility] [address] [place] [address], [place] [phone] * CT ABD+PEL W IV CON ONLY [...] with Lauri Alanis in the emergency department [id number]. Referred By: LAURI ALANIS Interpreted By: Norman Smallwood, 03/18/2021 11:08 AM us Lauri Alanis MD,PHD CT Edited Res ult - Final * ECG 12 lead (03/18/2021 10:08 AM CDT) 03/18/2021 10:0 8 AM CDT Narrative [facility] RAD - 03/18/2021 1:20 PM CDT ?[facility] ? Test Date: ?2021-03-18 Pat Name: ? MANDIE COTTER ? Department: ? Room: ? EXAM 1 Gender: ? Male ? Drill Instructor: ?? : ?1955 ? Requested By: LAURI ALANIS Order Number: [id number] ? Reading MD: ?? Deuce Chan ? Measurements Intervals ?[place] ? Rate: ? 80 ? P: ?0 [place]: ? 140 ?QRS: ?9 QRSD: ? 96 ? T: ?62 QT: ? 360 ? QTc: ?416 ? Interpretive Statements SINUS RHYTHM NONSPECIFIC T-WAVE ABNORMALITY No previous ECG available for comparison Procedure Note Deuce Chan MD - 03/18/2021 [facility] Test Date: 2021-03-18 Pat Name: MANDIE COTTER Department: Room: EXAM 1 Gender: Male Drill Instructor: : 1955 Requested By: LAURI ALANIS Order Number: [id number] Reading MD: Deuce Chan Measurements Intervals [place] Rate: 80 P: 0 [place]: 140 QRS: 9 QRSD: 96 T: 62 QT: 360 QTc: 416 Interpretive Statements SINUS RHYTHM NONSPECIFIC T-WAVE ABNORMALITY No previous ECG available for comparison us Lauri Alanis MD,PHD ECG ORDERABLES Final Resu lt [facility] ([facility]) RAD * (ABNORMAL) URINALYSIS, AUTO, COMPLETE (03/18/2021 9:55 AM CDT) COLOR (U) YELLOW 03/18/2021 10:18 AM CDT [facility] TRANSPARENCY HAZY 03/18/2021 10:18 AM CDT [facility] SPECIFIC GRAVITY (U) 1.015 1.000 - 1.030 03/18/2021 10:18 AM CDT [facility] U PH 6.5 5.0 - 9.0 03/18/2021 10:18 AM CDT [facility] LEUKOCYTES (U) NEGATIVE NEGATIVE 03/18/2021 10:18 AM CDT [facility] NITRITES NEGATIVE NEGATIVE 03/18/2021 10:18 AM CDT [facility] PROTEIN (U) NEGATIVE NEGATIVE 03/18/2021 10:18 AM CDT [facility] URINE GLUCOSE NEGATIVE NEGATIVE 03/18/2021 10:18 AM CDT [facility] KETONES MG/DL (U) TRACE(A) NEGATIVE 03/18/2021 10:18 AM CDT [facility] BILIRUBIN (U) NEGATIVE NEGATIVE 03/18/2021 10:18 AM CDT [facility] BLOOD (U) NEGATIVE NEGATIVE 03/18/2021 10:18 AM CDT [facility] WBC/HPF NONE SEEN 0 - 5 /HPF 03/18/2021 10:18 AM CDT [facility] RBC/HPF NONE SEEN 0 - 5 /HPF 03/18/2021 10:18 AM CDT [facility] EPI/HPF FEW /HPF 03/18/2021 10:18 AM CDT [facility] CULTURE & SENSITIVITY INDICATED? CULTURE IS NOT INDICATED 03/18/2021 10:18 AM CDT [facility] CRYSTALS (U) FEW /HPF 03/18/2021 10:18 AM CDT [facility] Comment:AMORPHOUS MATERIAL URINE SPECIMEN OBTAINED BY CLEAN CATCH PROCEDURE / Unknown 03/18/2021 9:55 AM CDT us Lauri Alanis MD,PHD URINE ORDERABLES Final Res ult Performing Organization Address [facility] Co de Phone Number [facility] [address] [place] [address], [place] [phone] * (ABNORMAL) LIPASE (03/18/2021 9:50 AM CDT) LIPASE 72(L) 73 - 393 UNITS/L 03/18/2021 10:15 AM CDT [facility] 03/18/2021 9:50 AM CDT us Lauri Alanis MD,PHD LABORATORY Final Resu lt Performing Organization Address City/[facility]/ZIP Co de Phone Number [facility] [address] [place] [address], [place] [phone] * PHOSPHORUS, INORGANIC PHOSPHATE (03/18/2021 9:50 AM CDT) PHOSPHORUS 3.2 2.5 - 4.9 MG/DL 03/18/2021 10:15 AM CDT [facility] 03/18/2021 9:50 AM CDT Lauri Alanis MD,PHD LABORATORY Final Resu lt [facility] [address] [place] [address], [place] [phone] * MAGNESIUM (03/18/2021 9:50 AM CDT) MAGNESIUM 2.1 1.8 - 2.4 MG/DL 03/18/2021 10:15 AM CDT [facility] 03/18/2021 9:50 AM CDT Lauri Alanis MD,PHD LABORATORY Final Resu lt [facility] [address] [place] [address], [place] [phone] * (ABNORMAL) COMPREHENSIVE METABOLIC PANEL (03/18/2021 9:50 AM CDT) GLUCOSE 122(H) 70 - 99 MG/DL 03/18/2021 10:15 AM CDT [facility] BUN 19(H) 7 - 18 MG/DL 03/18/2021 10:15 AM CDT [facility] CREATININE S/P/B 0.85 0.7 - 1.3 MG/DL 03/18/2021 10:15 AM CDT [facility] SODIUM S/P/B 137 136 - 145 MMOL/L 03/18/2021 10:15 AM [facility] POTASSIUM S/P/B 4.0 3.5 - 5.1 MMOL/L 03/18/2021 10:15 AM [facility] CHLORIDE S/P/B 100 100 - 108 MMOL/L 03/18/2021 10:15 AM [facility] CO2 28.1 21 - 32 MMOL/L 03/18/2021 10:15 AM [facility] CALCIUM S/P/B 8.9 8.5 - 10.1 MG/DL 03/18/2021 10:15 AM [facility] BILIRUBIN TOTAL S/P/B 1.7(H) 0.2 - 1.2 MG/DL 03/18/2021 10:15 AM [facility] TOTAL PROTEIN S/P/B 8.4(H) 6.4 - 8.2 G/DL 03/18/2021 10:15 AM [facility] ALBUMIN S/P/B 4.3 3.4 - 5.0 G/DL 03/18/2021 10:15 AM [facility] AST 19 15 - 37 U/L 03/18/2021 10:15 AM [facility] ALT 35 16 - 60 U/L 03/18/2021 10:15 AM [facility] ALKALINE PHOSPHATASE S/P/B 50 50 - 136 U/L 03/18/2021 10:15 AM [facility] ANION GAP 8.9 5 - 15 MMOL/L 03/18/2021 10:15 AM [facility] BUN CREATININE RATIO 22.4 6 - 26 03/18/2021 10:15 AM [facility] A/G RATIO 1.0 1.0 - 2.0 RATIO 03/18/2021 10:15 AM CDT [facility] EGFR NON-AFR. AMER. >90 >90 ML/MIN/1.7 3 M2 03/18/2021 10:15 AM CDT [facility] EGFR AFR. AMER. >90 >90 ML/MIN/1.7 3 M2 03/18/2021 10:15 AM CDT [facility] Comment: NOTE: eGFR is not calculated for patients <18 years of age. This is an estimated GFR (CKD EPI) and should not be used for calculating drug doses. 03/18/2021 9:50 AM CDT us Lauri Alanis MD,PHD LABORATORY Final Resu lt [facility] [address] [place] [address], * (ABNORMAL) CBC W/DIFF AUTOMATED (03/18/2021 9:50 AM CDT) WBC 13.7(H) 4.4 - 11.0 x10'3/uL 03/18/2021 10:05 AM CDT [facility] RBC 4.81 4.50 - 5.90 x10'6/uL 03/18/2021 10:05 AM CDT [facility] HGB 15.7 14.0 - 17.5 G/DL 03/18/2021 10:05 AM CDT [facility] HCT 45.7 41.5 - 50.4 % 03/18/2021 10:05 AM CDT [facility] MCV 95.0 80.0 - 96.0 FL 03/18/2021 10:05 AM CDT [facility] MCH 32.6(H) 26.5 - 31.4 PG 03/18/2021 10:05 AM [facility] MCHC 34.4 31.9 - 34.8 G/DL 03/18/2021 10:05 AM [facility] RDW 12.8 12.3 - 14.3 % 03/18/2021 10:05 AM [facility] PLT 236 151 - 353 x10'3/uL 03/18/2021 10:05 AM [facility] MPV 10.9 9.7 - 11.9 FL 03/18/2021 10:05 AM [facility] RBC MORPHOLOGY NORMAL 03/18/2021 10:05 AM [facility] PLT MORPH. NORMAL 03/18/2021 10:05 AM [facility] WBC MORPHOLOGY NORMAL 03/18/2021 10:05 AM [facility] LYMPHOCYTES % 10.6(L) 15.8 - 45.0 % 03/18/2021 10:05 AM [facility] NEUTROPHILS % 83.5(H) 42.1 - 71.9 % 03/18/2021 10:05 AM [facility] MONOCYTES % 5.1(L) 5.7 - 12.5 % 03/18/2021 10:05 AM [facility] EOSINOPHILS 0.3 0.0 - 5.6 % 03/18/2021 10:05 AM [facility] BASOPHILS 0.2 0.0 - 1.3 % 03/18/2021 10:05 AM [facility] ABS. NEUTROPHILS TOTAL 11.39(H) 1.40 - 6.00 x10'3/uL 03/18/2021 10:05 AM [facility] IMMATURE GRANS % 0.3 0.0 - 0.5 % 03/18/2021 10:05 AM CDT [facility] ABS. LYMPHOCYTES 1.45 0.80 - 4.70 x10'3/uL 03/18/2021 10:05 AM CDT [facility] 03/18/2021 9:50 AM CDT us Lauri Alanis MD,PHD LABORATORY Final Resu lt [facility] [address] [place] [address], [place] [phone] documented in this encounter Visit Diagnoses Diagnosis Intra-abdominal free air of unknown etiology- Primary Other specified disorder of peritoneum Bowel perforation (CMS/HCC HHS/HCC) Perforation of intestine documented in this encounter Admitting Diagnoses Diagnosis Bowel perforation (CMS/HCC HHS/HCC) Perforation of intestine documented in this encounter Administered Medications Inactive Administered Medications - up to 3 most recent administrations Medication Order MAR Action Action Date Dose Rate Site HYDROmorphone (DILAUDID) injection 0.3 mg 0.3 mg, Intravenous, Once, 1 dose, On Yamilex 03/18/21 at 1000, Administer slowly over at least 2-3 minutes. Given 03/18/2021 10:03 AM CDT 0.3 mg HYDROmorphone (DILAUDID) injection 0.5 mg 0.5 mg, Intravenous, Once, 1 dose, On Yamilex 03/18/21 at 1245, Administer slowly over at least 2-3 minutes. Given 03/18/2021 12:45 PM CDT 0.5 mg iopamidol (ISOVUE-370) 76 % injection 75 mL 75 mL, Intravenous, IMG once as needed, Contrast, 1 dose, Starting on Yamilex 03/18/21 at 1054, Until Yamilex 03/18/21 at 1052 Given 03/18/2021 10:52 AM CDT 75 mLs Left Arm lactated ringers infusion 2,000 mL Intravenous, Once, 1 dose, On Yamilex 03/18/21 at 1130 New Bag 03/18/2021 11:43 AM CDT 2,000 mLs piperacillin-tazobactam (ZOSYN) 4.5 g in sodium chloride 0.9 % 100 mL IVPB 4.5 g, Intravenous, Administer over 30 Minutes, Once, 1 dose, On Yamilex 03/18/21 at 1130 New Bag 03/18/2021 11:43 AM CDT 4.5 g 200 mL/hr documented in this encounter Active and Recently Administered Medications Times are shown in CDT. Scheduled Medication Order 03/16/2021 03/17/2021 03/18/2021 HYDROmorphone (DILAUDID) injection 0.3 mg (COMPLETED) 0.3 mg, Intravenous, Once, 1 dose, On Yamilex 03/18/21 at 1000, Administer slowly over at least 2-3 minutes. 1003 (Given - Provid er: Portillo Kolb RN) HYDROmorphone (DILAUDID) injection 0.5 mg (COMPLETED) 0.5 mg, Intravenous, Once, 1 dose, On Yamilex 03/18/21 at 1245, Administer slowly over at least 2-3 minutes. 1245 (Given - Provid er: Emilia Mays RN) lactated ringers infusion 2,000 mL (COMPLETED) Intravenous, Once, 1 dose, On Yamilex 03/18/21 at 1130 1143 (New Bag - Prov ider: Portillo Kolb RN) piperacillin-tazobactam (ZOSYN) 4.5 g in sodium chloride 0.9 % 100 mL IVPB (COMPLETED) 4.5 g, Intravenous, Administer over 30 Minutes, Once, 1 dose, On Yamilex 03/18/21 at 1130 1143 (New Bag - Prov ider: Portillo Kolb RN)1221 (Infusion Stop Time - Provider: Emilia Mays RN) PRN Medication Order 03/16/2021 03/17/2021 03/18/2021 iopamidol (ISOVUE-370) 76 % injection 75 mL (COMPLETED) 75 mL, Intravenous, IMG once as needed, Contrast, 1 dose, Starting on Yamilex 03/18/21 at 1054, Until Yamilex 03/18/21 at 1052 1052 (Given - Provid er: Charmaine Dasilva RTR) documented in this encounter Care Teams Wagon Drill Operator Relationship Specialty Start Date End Date Lorie Chan MD PCP - General INTERNAL MEDICINE 01/15/20 02/09/23 documented as of this encounter
--- OUTSIDE RECORDS SUMMARY | 2024-11-02 08:13 | XMS_ITS | Encounter Summary ---
Author Organization [facility] Address [address] [place] [address]. [place], [place] [address] [place] [address] Care Team Providers Care Video Production Engineer Name Role Phone Lorie Chan MD Primary Care Provider [phone] Reason for Visit * Auth/Cert Specialty Diagnoses / Procedures Referred By Shelby jama Referred To Contact Diagnoses Pharyngoesophageal dysphagia Dysphagia Procedures UPPER GI ENDOSCOPY,DIAGNOSIS EGD Referral ID Status Reason Start Date Expiration Date Visits Re quested Visits Authorized [id number] 1 1 Encounter Details Date Type Department Care Team (Late st Contact Info) Description 03/10/2021 8:26 AM CDT - 03/10/2021 8:53 AM CDT Surgery [facility] [address] [place] [address] Jenni Randolph MD [address] [place] [id number] EGD WITH BIOPSY AND DILATION Surgery Details Date/Time Status Location OR Service Patient Class Case Class Case Type Trauma Case? 03/10/2021 8:26 AM Posted [facility] OR Endo Gastroenterology Short Stay/Outpa tient Surgery No Panel 1 Procedure LRB Anes Op Region Wound Class Comments EGD WITH BIOPSY AND DILATION N/A Monitor Anesthesia Care Esophagus Clean Contaminated Surgeon Surgeon Role Service Panel Jenni Randolph MD Primary Gastroenterology 1 Special Needs 0700 documented in this encounter Social History Tobacco [...] on file Legal Sex Male 9:58 PM [employer] Gender Identity Not on file Sexual Orientation Not on file COVID-19 Exposure Response Date Recorded In the last month, have you been in contact with someone who was confirmed or suspected to have Coronavirus / COVID-19? No / Unsure 03/10/2021 6:55 AM CDT documented as of this encounter Last Filed Vital Signs Vital Sign Reading Time Taken Comments Blood Pressure 133/77 03/10/2021 8:01 AM CDT Pulse 65 03/10/2021 8:01 AM CDT Temperature 36 ??C (96.8 ??F) 03/10/2021 8:01 AM CDT Respiratory Rate 18 03/10/2021 8:01 AM CDT Oxygen Saturation 100% 03/10/2021 8:01 AM CDT Inhaled Oxygen Concentration - - [...] Everywhere. * Upper GI Endoscopy Discharge Instructions (Turkish) * Esophageal Stricture Discharge Instructions (Turkish) * Acid Reflux and GERD in Adults Discharge Instructions (Turkish) * Hiatal Hernia Discharge Instructions (Turkish) documented in this encounter Medications at Time [...] total) by mouth daily. 90 tablet 1 03/23/20 21 Misc Natural Products (OSTEO BI-FLEX JOINT SHIELD OR) Take 1 tablet by mouth 2 (two) times daily. 03/24/20 21 documented as of this encounter Progress Notes * Jenni Randolph MD - 03/10/2021 9:57 AM CDT Your esophageal stricture biopsy is benign * MICHAEL Lovett Service Associate - 03/10/2021 9:57 AM CDT Anesthesia Record Closure: As a Chart Correction Service Associate, I closed the Anesthesia Record due to ageof the record. All required documentation was previously completed and signed by TRACTOR DISTRIBUTOR. ER [employer] documented in this encounter H&P Notes * [...] during recuperation were discussed with the patient/family/personal in store marketing representative. Reasonable alternatives to the patient's proposed procedure/surgery including benefits, risks, and side effects related to the alternatives and the risks related to not receiving the proposed care were also discussed with the patient/family/personal in store marketing representative. Questions were answered and the patient/family/personal in store marketing representative verbalized understanding and desires to proceed. [...] N/A 2013 ??? [facility] REPA[facility] Left [facility] ??? NECK/CHEST PROCEDURE UNLISTED Right [facility], re-built right side of neck. ??? TOTAL KNEE ARTHROPLASTY Bilateral ZANA Partial KR, done @ [facility] Social History: Social History Socioeconomic History ??? [...] file Gets together: Not on file Attends synagogue service: Not on file Active member of [...] Randolph MD - 03/10/2021 9:11 AM CDT [facility] OpNote EGD WITH BIOPSY AND DILATION Procedure Note Natan Patel 03/10/2021 0826 Procedure(s) (LRB): EGD WITH BIOPSY AND DILATION (N/A) Surgeon(s): Jenni Randolph MD Staff: Circulating Nurse 1: Dorinda Pak RN Scrub Person 1: Savannah Mckee [place], SAFETY COORDINATOR Anesthesia: Monitor Anesthesia Care TRACTOR DISTRIBUTOR: Meredith Villagran CRNA Pre-Op Diagnosis: Dysphagia Post-Op [...] looked normal and scope withdrawn. A 48 Khmer Guevara dilator was then lubricated inserted for single pass which was well-tolerated without significant resistance or heme. Findings: GE junction with moderate stricture was biopsied and dilated with 48 Khmer Guevara. Small hiatal hernia. Rest examination was [...] Description 01/27/2025 7:00 AM CDT Office Visit [facility] [address] [place] [id number] [place] [address] [place], [place] [id number] 10/22/2025 9:15 AM [employer] Office Visit [facility] [phone] Mily Gan MD [address] [id number] documented as of this encounter Procedures Procedure Name Priority Date/Time Associated Diagnosis Comments PATHOLOGY Routine 03/10/2021 9:02 AM CDT UPPER GI ENDOSCOPY,DIAGNOS IS 03/10/2021 8:55 AM CDT Pharyngoesophageal dysphagia Special Needs 0700 documented in this encounter Results * Pathology (03/10/2021 9:02 AM CDT) Tissue specimen (specimen) GASTRIC BIOPSY SPECIMEN / Unknown 03/10/2021 9:02 AM CDT Comment:dysphagia Narrative [facility] - 03/15/2021 2:37 PM CDT Date of service: ??03/10/2021 Preoperative diagnosis: ??Dysphagia GROSS DESCRIPTION: ?? The specimen was received in formalin on 03/10/2021 and biopsy GE stricture. ??The specimen consists of ??four warren ovoid fragments of tissue measuring 0.2 cm in greatest dimension. ??Submitted entirely in a single cassette and both Giemsa and Alcian blue PAS stain will be performed. (CPT code: ??26476, 87886, 24457) Site: ??[facility] ([facility] D: ??03/10/2021 03:10 PM #[id number] T: ??03/11/2021 08:52 AM /NTS PATHOLOGIC DIAGNOSIS: Tissue from gastroesophageal stricture: - [...] or dysplasia present. D: ??03/15/2021 10:55 AM #[id number] T: ??03/15/2021 11:16 AM /NTS Jenni Randolph MD PATHOLOGY/CYTOLOGY ORDERABLES Fi nal Result [facility] [address] [place] [address], documented in this encounter Visit Diagnoses Diagnosis Pharyngoesophageal dysphagia- Primary Dysphagia, pharyngoesophageal phase Pharyngoesophageal dysphagia Dysphagia, pharyngoesophageal phase documented in [...] RN) documented in this encounter Care Teams Video Production Engineer Relationship Specialty Start Date End Date Lorie Chan MD PCP - General INTERNAL MEDICINE 01/15/20 02/09/23 documented as of this encounter
--- OUTSIDE RECORDS SUMMARY | 2024-11-02 08:14 | XMS_ITS | Encounter Summary ---
Author Organization [facility] Address [address] [place] [address]. [place], [place] [address] [place] [address] Care Team Providers Care Oil Field Worker Name Role Phone Lorie Chan MD Primary Care Provider [phone] Moraima Toledo RN Unavailable [phone] Moraima Toledo RN Unavailable [phone] Candis Bee NP Primary Care Provider [phone] Ilir Nelson Primary Care Provider [phone] Encounter Details Date Type Department Care Team (Late st Contact Info) Description 03/01/2021 Prep for Procedure [facility] [address] [place] [address] Cody Randolph MD [address] [id number] Social History Tobacco Use Types Packs/Day Years [...] on file 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 No / Unsure 02/19/2021 1:03 PM CDT documented as of this encounter Plan of Treatment Upcoming Encounters Date Type Department Care Team (Late st Contact Info) Description 01/27/2025 7:00 AM CDT Office Visit [facility] Family & Internal Medicine [facility] [address] [place] [address] [place] [address] [place] [address] 10/22/2025 9:15 AM CHANNELER RUNNER Office Visit [facility] [address] Mily Gan MD [address] [phone] documented as of this encounter Results * PRE-SURGICAL/PRE-PROCEDURE CORONAVIRUS (COVID 19) (03/07/2021 8:12 AM CDT) CORONAVIRUS SARS COV 2 PCR (RESP) NOT DETECTED NOT DETECTED 03/08/2021 2:56 PM CDT [facility] Comment: A Not Detected (negative) test result for this test means that SARS- CoV-2 RNA was not present in the specimen above the limit of detection. A negative result does not rule out the possibility of COVID-19 and should not be used as the sole basis for treatment or patient management decisions. ??If COVID-19 is still suspected, based on exposure history together with other clinical findings, re-testing should be considered in consultation with public health authorities. Laboratory test results should always be considered in the context of clinical observations and epidemiological data in making a final diagnosis and patient management decisions. Please review the Fact Sheets and FDA authorized labeling available for health care providers and patients using the following websites: https://www.CommutePays.PEVESA/home/Covid-19/HCP/Quest[facility]/fact- sheet.html https://www.CommuteP[employer].PEVESA/home/Covid-19/Patients/ Quest[employer]/fact-sheet.html This test has been authorized by the FDA under an Emergency Use Authorization (EUA) for use by authorized laboratories. Due to the current public health emergency, [facility] is receiving a high volume of samples from a wide variety of swabs and media for COVID-19 testing. In order to serve patients during this public health crisis, samples from appropriate clinical sources are being tested. Negative test results derived from specimens received in non-commercially manufactured viral collection and transport media, or in media and sample collection kits not yet authorized by FDA for COVID-19 testing should be cautiously evaluated and the patient potentially subjected to extra precautions such as additional clinical monitoring, including collection of an additional specimen. Methodology: ??Nucleic Acid Amplification Test (NAAT) includes RT-PCR or TMA Additional information about COVID-19 can be found at the [facility] website: www.Jazzdesk.PEVESA/Covid19. Test performed at [facility] [id number] [place] [address] ??[id number] Director: MICHEL LEO DO,MPH FIRST TEST UNKNOWN 03/07/2021 8:04 AM T [facility] EMPLOYED IN HEALTHCARE NO 03/07/2021 8:04 AM CDT [facility] SYMPTOMATIC DEFINED BY CDC NO 03/07/2021 8:04 AM CDT [facility] DATE OF SYMPTOM ONSET UNKNOWN 03/07/2021 12:43 PM CDT [facility] HOSPITALIZATION STATUS NO 03/07/2021 8:04 AM CDT [facility] PATIENT IN ICU NO 03/07/2021 8:04 AM CDT [facility] RESIDENT OF CONGREGATE CARE NO 03/07/2021 8:04 AM CDT [facility] UNKNOWN 03/07/2021 12:43 PM CDT [facility] PATIENT'S RACE WHITE OR 03/07/2021 8:04 AM CDT [facility] ETHNICITY NONHISPANIC 03/07/2021 8:04 AM CDT [facility] SOURCE (QST) NASOPHARYNGEAL SWAB 03/07/2021 8:04 AM CDT [facility] NASOPHARYNGEAL SWAB / Unknown 03/07/2021 8:12 AM CDT us Cody Randolph MD MICROBIOLOGY - GENERAL ORDERABLE S Final Result Performing Organization Address City/State/[facility] Co de Phone Number [facility] [address] [place] [address], [place] [address], documented in this encounter Visit Diagnoses Diagnosis Preop testing- Primary Preoperative examination, unspecified documented in this encounter Additional Health Concerns Infection Onset Date Last Indicated Resolved Time COVID-19 Rule Out 03/07/2021 03/07/2021 03/08/2021 2:56 PM CDT documented as of this encounter Care Teams Oil Field Worker Relationship Specialty Start Date End Date Lorie Chan MD PCP - General INTERNAL MEDICINE 01/15/20 02/09/23 [place] [address] Tata Morejon, [address] [address] PCP - General Nurse Practitioner Family 02/10/23 01/05/24 [place] [address] [place] [address] PCP - General Physician Electric Meter Inspector Medical 01/06/24 Moraima Toledo, RN [address] [place] [address] Taproom Attendant (Ambulatory) REGISTERED NURSE 03/19/21 03/30/21 Moraima Toledo RN [address] [place] [address] Taproom Attendant (Ambulatory) REGISTERED NURSE 09/23/21 10/18/21 documented as of this encounter
--- OUTSIDE RECORDS SUMMARY | 2024-11-02 08:14 | XMS_ITS | Encounter Summary ---
Author Organization [facility] Address [address] [place] [address]. 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 No / Unsure 01/14/2021 3:20 PM PIN DRAFTING MACHINE TENDER documented as of this encounter Plan of Treatment Upcoming Encounters Date Type Department Care Team (Late st Contact Info) Description 01/27/2025 7:00 AM CDT Office Visit [facility] Family & Internal Medicine - [place] [address] [place] [address] [place] [address] [place] [address] 10/22/2025 9:15 AM PIN DRAFTING MACHINE TENDER [facility] [address] [place] [address] Mily Gan MD [address] [address] documented as of this encounter Visit Diagnoses Not on filedocumented in this encounter Care Teams Elevator Conductor Relationship Specialty Start Date End Date Lorie Chan MD PCP - General INTERNAL MEDICINE 01/15/20 02/09/23 documented as of this encounter
--- OUTSIDE RECORDS SUMMARY | 2024-11-02 08:14 | XMS_ITS | Encounter Summary ---
Author Organization [facility] Address [address] [place] [address]. [place], [place] [address] [place] [address] Care Team Providers Care Skin Care Therapist Name Role Phone Lorie Castanon MD Primary Care Provider [phone] Reason for Referral * Imaging (Routine) - Closed Specialty Diagnoses / Procedures Referred By Shelby jama Referred To Contact RADIOLOGY Diagnoses Encounter for abdominal aortic aneurysm (AAA) screening Procedures US AORTA Lorie Castanon MD Phone: tel: fax: Referral ID Status Reason Start Date Expiration Date Visits Re quested Visits Authorized [id number] Closed 01/12/2021 02/12/2022 2 2 MACHINE OPERATOR PRODUCTION Reason for Visit * Imaging (Routine) - Closed Specialty Diagnoses / Procedures Referred By Shelby jama Referred To Contact RADIOLOGY Diagnoses Encounter for abdominal aortic aneurysm (AAA) screening Procedures US AORTA Lorie Csatanon MD Phone: tel: fax: Referral ID Status Reason Start Date Expiration Date Visits Re quested Visits Authorized [id number] Closed 01/12/2021 02/12/2022 2 2 Encounter Details Date Type Department Care Team (Latest Contact Info) Description 01/15/2021 8:07 AM BAR MACHINE OPERATOR PRODUCTION - 01/15/2021 11:59 PM BAR MACHINE OPERATOR PRODUCTION Hospital Encounter [facility] Ultrasound [address] [place] [address] [place] [address] [place] [address] Discharge Disposition: Home or Self Care (Routine [...] on file Legal Sex Male 9:58 PM BAR MACHINE OPERATOR PRODUCTION Gender Identity Not on file Sexual Orientation Not on file COVID-19 Exposure Response Date Recorded In the last month, have you been in contact with someone who was confirmed or suspected to have Coronavirus / COVID-19? No / Unsure 01/14/2021 3:20 PM BAR MACHINE OPERATOR PRODUCTION documented as of this encounter Medications at Time of Discharge aspirin 81 MG chewable tabletIndications:A nticoagulant Therapy [...] health clinician.] 90 tablet 1 1 07/05/20 CPAP SUPPLIESIndications :RANDY on CPAP 1 Units [...] of this encounter Progress Notes * Susan Sanders MA - 01/15/2021 8:30 AM CST Spoke with the patient, Informed him of the results. Patient voiced understanding. MACHINE OPERATOR PRODUCTION documented in this encounter Plan of Treatment Upcoming Encounters Date Type Department Care Team (Late st Contact Info) Description 01/27/2025 7:00 AM CDT Office Visit [facility] Family & Internal Medicine [facility] [address] [place] [address] [place] [address] [place], [place] [phone] 10/22/2025 9:15 AM BAR MACHINE OPERATOR PRODUCTION Office Visit [facility] [address] Mily Gan MD [address] [address] documented as of this encounter Procedures Procedure Name Priority Date/Time Associated Diagnosis Comments US AORTA Routine 01/15/2021 8:43 AM BAR MACHINE OPERATOR PRODUCTION Encounter for abdominal aortic aneurysm (AAA) screening documented in this encounter Results * US AORTA (01/15/2021 8:43 AM BAR MACHINE OPERATOR PRODUCTION) Anatomical Region Laterality Modality Abdomen Ultrasound 01/15/2021 10:5 9 AM BAR MACHINE OPERATOR PRODUCTION Impressions 01/15/2021 11:00 AM BAR MACHINE OPERATOR PRODUCTION IMPRESSION: 1. ??No evidence of abdominal aortic aneurysm. Referred By: LORIE CASTANON Interpreted By: Moncho Cheng, 01/15/2021 10:59 AM Narrative 01/15/2021 11:00 AM BAR MACHINE OPERATOR PRODUCTION IMAGING STUDIES: ??US AORTA ? DATE: ??01/15/2021 8:27 AM COMPARISON STUDIES: No previous available. ?? CLINICAL HISTORY: ??AAA screening > 50 pack years tob ?.Additional history FINDINGS: ?? Real-time ultrasound examination of the aorta was performed by the chick sexer using B-mode/arriaza-scale, Doppler spectral analysis and color Doppler flow. ??Images demonstrate normal flow with mild amount of plaque within the abdominal aorta. Diameters as follows: Proximal abdominal aorta: 1.9 cm, mid abdominal aorta 2.1 x 1.7 cm, distal abdominal aorta 1.6 x 1.7 cm. The upper abdomen aorta is partially obscured by superimposed bowel Right iliac artery 0.9 x 0.8 cm, left iliac artery 0.9 x 0.9 cm. Procedure Note Moncho Cheng MD - 01/15/2021 IMAGING STUDIES: US AORTA DATE: 01/15/2021 8:27 AM COMPARISON STUDIES: No previous available. CLINICAL HISTORY: AAA screening > 50 pack years tob .Additionalhistory FINDINGS: Real-time ultrasound examination of the aorta was performed by the chick sexer using B-mode/arriaza-scale, Doppler spectral analysis and color Doppler flow. Images demonstrate normal flow with mild amount of plaque within the abdominal aorta. Diameters as follows: Proximal abdominal aorta: 1.9 cm, mid abdominal aorta 2.1 x 1.7 cm,distal abdominal aorta 1.6 x 1.7 cm. The upper abdomen aorta is partiallyobscured by superimposed bowel Right iliac artery 0.9 x 0.8 cm, left iliac artery 0.9 x 0.9 cm. IMPRESSION: 1. No evidence of abdominal aortic aneurysm. Referred By: LORIE CASTANON Interpreted By: Moncho Cheng, 01/15/2021 10:59 AM us Lorie Castanon MD ULTRASOUND Final Result documented in this encounter Visit Diagnoses Diagnosis Encounter for abdominal aortic aneurysm (AAA) screening documented in this encounter Care Teams Skin Care Therapist Relationship Specialty Start Date End Date Lorie Castanon MD PCP - General INTERNAL MEDICINE 01/15/20 02/09/23 documented as of this encounter
--- OUTSIDE RECORDS SUMMARY | 2024-11-02 08:14 | XMS_ITS | Encounter Summary ---
Author Organization [facility] Address [address] [place] [address]. [place], [place] [address] [place] [address] Care Team Providers Care Visual Designer Name Role Phone Lorie Chan MD Primary Care Provider [phone] Encounter Details Date Type Department Care Team (Latest Contact Info) Description 02/19/2021 Travel Social History Tobacco Use Types Packs/Day [...] on file Legal Sex Male 9:58 PM ACCOUNT ANALYST Gender Identity Not on file Sexual [...] [facility] Family & Internal Medicine - [place] [address] [place] [address] [place] [address] [place], [place] [phone] 10/22/2025 9:15 AM ACCOUNT ANALYST [facility] [address] [place] [address] Mily Gan MD [address] [address] documented as of this encounter Visit Diagnoses Not on filedocumented in this encounter Care Teams Visual Designer Relationship Specialty Start Date End Date Lorie Chan MD PCP - General INTERNAL MEDICINE 01/15/20 02/09/23 documented as of this encounter
--- OUTSIDE RECORDS SUMMARY | 2024-11-02 08:14 | XMS_ITS | Encounter Summary ---
Author Organization [facility] Address [address] [place] [address]. [place] [address] [place] [address] Care Team Providers Care Racebook Writer Name Role Phone Lorie Chan MD Primary Care Provider [phone] Reason for Visit * Reason Comments Dysphagia pt is having trouble swallowing, last EGD years ago * Consultation (Routine) - Closed Specialty Diagnoses / Procedures Referred By Shelby jama Referred To Contact GASTROENTEROLOGY Diagnoses Pharyngeal dysphagia Lorie Chan MD Phone: tel: fax: [place] [address] [place] [address] Phone: tel: fax: Referral ID Status Reason Start Date Expiration Date Visits Re quested Visits Authorized [id number] Closed 01/25/2021 01/25/2022 6 6 Encounter Details Date Type Department Care Team (Latest Contact Info) Description 02/19/2021 1:20 PM CDT Office Visit [facility] Gastroenterology Specialty Clinic [place] [address] [place] [address] Jenni Randolph MD [address] [place] [address] Dysphagia (pt is having trouble swallowing, last EGD years ago ) Social History Tobacco Use Types Packs/Day [...] on file Legal Sex Male 9:58 PM LEVERS LACE MACHINE OPERATOR Gender Identity Not on file Sexual Orientation Not on file COVID-19 Exposure Response Date Recorded In the last month, have you been in contact with someone who was confirmed or suspected to have Coronavirus / COVID-19? No / Unsure 02/19/2021 1:03 PM CDT documented as of this encounter Last Filed Vital Signs Vital Sign Reading Time Taken Comments Blood Pressure 124/72 02/19/2021 1:13 PM CDT Pulse 74 02/19/2021 1:13 PM CDT Temperature 36.4 ??C (97.5 ??F) 02/19/2021 1:13 PM CD T Respiratory Rate 18 02/19/2021 1:13 PM CDT Oxygen Saturation 98% 02/19/2021 1:13 PM CDT Inhaled Oxygen Concentration - - Weight 73.1 kg (161 lb 3.2 oz) 02/19/2021 1:13 P M CDT Height 167.6 cm (5' 6 ) 02/19/2021 1:13 PM CDT Body Mass Index 26.02 02/19/2021 1:13 PM CDT documented in this encounter Progress Notes * Jenni Randolph MD - 02/19/2021 1:20 PM [...] COLONOSCOPY N/A 2013 ??? HERNIA REPAIR Right [facility] ??? HERNIA REPAIR Left [facility] ??? NECK/CHEST PROCEDURE UNLISTED Right [facility], re-built right side of neck. ??? TOTAL KNEE ARTHROPLASTY Bilateral ZANA Partial KR, done @ [facility] Social History: Social History Socioeconomic History ??? [...] file Gets together: Not on file Attends sabianism service: Not on file Active member of [...] recognition software utilized documented in this encounter Plan of Treatment Upcoming Encounters Date Type Department Care Team (Late st Contact Info) Description 01/27/2025 7:00 AM CDT Office Visit [facility] Family & Internal Medicine [facility] [address] [place] [address] [place] [address] [place] [address] 10/22/2025 9:15 AM LEVERS LACE MACHINE OPERATOR Office Visit [facility] [address] Mily Gan MD [address] [address] documented as of this encounter Visit Diagnoses Diagnosis Pharyngoesophageal dysphagia- Primary Dysphagia, pharyngoesophageal phase documented in this encounter Care Teams Racebook Writer Relationship Specialty Start Date End Date Lorie Chan MD PCP - General INTERNAL MEDICINE 01/15/20 02/09/23 documented as of this encounter
--- OUTSIDE RECORDS SUMMARY | 2024-11-02 08:14 | XMS_ITS | Encounter Summary ---
Author Organization [facility] Address [address] [place] [address]. [place], [place] [address] [place] [address] Care Team Providers Care Quality Control Analyst Name Role Phone Lorie Chan MD Primary Care Provider [phone] Encounter Details Date Type Department Care Team (Latest Contact Info) Description 01/14/2021 Travel Social History Tobacco Use Types Packs/Day [...] file Legal Sex Male 9:58 PM FINANCIAL REPORTING ADVISOR Gender Identity Not on file Sexual Orientation Not on file COVID-19 Exposure Response Date Recorded In the last month, have you been in contact with someone who was confirmed or suspected to have Coronavirus / COVID-19? No / Unsure 01/14/2021 3:20 PM FINANCIAL REPORTING ADVISOR documented as of this encounter Plan of Treatment Upcoming Encounters Date Type Department Care Team (Late st Contact Info) Description 01/27/2025 7:00 AM CDT Office Visit [facility] Family & Internal Medicine - [place] [address] [place] [address] [place] [address] [place] [address] 10/22/2025 9:15 AM FINANCIAL REPORTING ADVISOR [facility] [address] [place] [phone] Mily Gan MD [address] [address] documented as of this encounter Visit Diagnoses Not on filedocumented in this encounter Care Teams Quality Control Analyst Relationship Specialty Start Date End Date Lorie Chan MD PCP - General INTERNAL MEDICINE 01/15/20 02/09/23 documented as of this encounter
--- OUTSIDE RECORDS SUMMARY | 2024-11-02 08:14 | XMS_ITS | Encounter Summary ---
Author Organization [facility] Address [address] [place] [address]. [place], [place] [address] [place] [address] Care Team Providers Care Day Porter Name Role Phone Lorie Chan MD Primary Care Provider [phone] Encounter Details Date Type Department Care Team (Late st Contact Info) Description 01/14/2021 3:35 PM PRINTING MACHINIST Flu/Imm Clinic [facility] Multispecialty Care - [address] [place] [address] Beckie Sandra, STRUCTURAL FITTER Social History Tobacco Use Types Packs/Day Years [...] on file Legal Sex Male 9:58 PM PRINTING MACHINIST Gender Identity Not on file Sexual Orientation Not on file COVID-19 Exposure Response Date Recorded In the last month, have you been in contact with someone who was confirmed or suspected to have Coronavirus / COVID-19? No / Unsure 01/14/2021 3:20 PM PRINTING MACHINIST documented as of this encounter Plan of Treatment Upcoming Encounters Date Type Department Care Team (Late st Contact Info) Description 01/27/2025 7:00 AM CDT Office Visit [facility] Family & Internal Medicine [facility] [address] [place] [address] [place] [address] [place] [address] 10/22/2025 9:15 AM PRINTING MACHINIST Office Visit [facility] [address] [address] Mily Gan MD [address] [address] documented as of this encounter Visit Diagnoses Diagnosis Need for prophylactic vaccination against viral disease- Primary Need for prophylactic vaccination and inoculation against other viral diseases documented in this encounter Care Teams Day Porter Relationship Specialty Start Date End Date Lorie Chan MD PCP - General INTERNAL MEDICINE 01/15/20 02/09/23 documented as of this encounter
--- OUTSIDE RECORDS SUMMARY | 2024-11-02 08:14 | XMS_ITS | Encounter Summary ---
Author Organization [facility] Address [address] [place] [address]. [place], [place] [address] [place] [address] Care Team Providers Care Electrocardiograph Repairer Name Role Phone Lorie Chan MD Primary Care Provider [phone] Encounter Details Date Type Department Care Team (Latest Contact Info) Description 03/07/2021 Travel Social History Tobacco Use Types Packs/Day [...] on file Legal Sex Male 9:58 PM APPLIED MATHEMATICIAN Gender Identity Not on file Sexual Orientation Not on file COVID-19 Exposure Response Date Recorded In the last month, have you been in contact with someone who was confirmed or suspected to have Coronavirus / COVID-19? No / Unsure 03/07/2021 8:04 AM CDT documented as of this encounter Plan of Treatment Upcoming Encounters Date Type Department Care Team (Late st Contact Info) Description 01/27/2025 7:00 AM CDT Office Visit [facility] Family & Internal Medicine - [place] [address] [place] [address] [place] [address] [place], [place] [phone] 10/22/2025 9:15 AM APPLIED MATHEMATICIAN Office Visit [facility] [address] [place] [address] Mily Gan MD [address] [address] documented as of this encounter Visit Diagnoses Not on filedocumented in this encounter Additional Health Concerns Infection Onset Date Last Indicated Resolved Time COVID-19 Rule Out 03/07/2021 03/07/2021 03/08/2021 2:56 PM CDT documented as of this encounter Care Teams Electrocardiograph Repairer Relationship Specialty Start Date End Date Lorie Chan MD PCP - General INTERNAL MEDICINE 01/15/20 02/09/23 documented as of this encounter
--- OUTSIDE RECORDS SUMMARY | 2024-11-02 08:14 | XMS_ITS | Encounter Summary ---
Author Organization [facility] Address [address] [place] [address]. [place] [address] [place] [address] Care Team Providers Care Cast Iron Drain Pipe Layer Name Role Phone Lorie Chan MD Primary Care Provider [phone] Encounter Details Date Type Department Care Team (Latest Contact Info) Description 03/07/2021 8:00 AM CDT - 03/07/2021 11:59 PM T Hospital Encounter [facility] [address] [place] [address] Cody Randolph MD [address] [place] [id number] Discharge Disposition: Home or Self Care (Routine [...] on file Legal Sex Male 9:58 PM VERIFYING SPECIALIST Gender Identity Not on file Sexual Orientation Not on file COVID-19 Exposure Response Date Recorded In the last month, have you been in contact with someone who was confirmed or suspected to have Coronavirus / COVID-19? No / Unsure 03/07/2021 8:04 AM CDT documented as of this encounter Medications at [...] 03/24/20 21 documented as of this encounter Plan of Treatment Upcoming Encounters Date Type Department Care Team (Late st Contact Info) Description 01/27/2025 7:00 AM CDT Office Visit [facility] Family & Internal Medicine [facility] [address] [place] [phone] Ilir Nelson, GERI [address] [place] [address] [place] [address] 10/22/2025 9:15 AM VERIFYING SPECIALIST Office Visit [facility] [address] [place] [address] Mily Gan MD Three [facility]. [facility] [address] [place] [address] documented as of this encounter Procedures Procedure Name Priority Date/Time Associated Diagnosis Comments CORONAVIRUS (COVID 19) Routine 03/07/2021 8:12 AM CDT Preop testing documented in this encounter Results * PRE-SURGICAL/PRE-PROCEDURE CORONAVIRUS (COVID 19) (03/07/2021 8:12 AM CDT) CORONAVIRUS SARS COV 2 PCR (RESP) NOT DETECTED NOT DETECTED 03/08/2021 2:56 PM CDT [facility] Comment: A Not Detected (negative) test result [...] providers and patients using the following websites: https://www.[employer].com/home/Covid-19/HCP/Quest[facility]/fact- sheet.html https://www.[facility].com/home/Covid-19/Patients/ [facility]/fact-sheet.html This test has been authorized by the FDA under an Emergency Use Authorization (EUA) for use by authorized laboratories. Due to the current public health emergency, [facility] is receiving a high volume of samples [...] about COVID-19 can be found at the [facility] website: www.[facility]/Covid19. [facility] performed [facility] [address] [place], [place] ??[phone] Director: MICHEL LEO DO,MPH FIRST TEST UNKNOWN 03/07/2021 8:04 AM T [facility] EMPLOYED IN HEALTHCARE NO 03/07/2021 8:04 AM CDT [facility] SYMPTOMATIC DEFINED BY CDC NO 03/07/2021 8:04 AM CDT [facility] DATE OF SYMPTOM ONSET UNKNOWN 03/07/2021 12:43 PM CDT [facility] HOSPITALIZATION STATUS NO 03/07/2021 8:04 AM T [facility] PATIENT IN ICU NO 03/07/2021 8:04 AM T [facility] RESIDENT OF [facility] NO 03/07/2021 8:04 AM T [facility] UNKNOWN 03/07/2021 12:43 PM CDT [facility] PATIENT'S RACE WHITE OR 03/07/2021 8:04 AM T [facility] ETHNICITY NONHISPANIC 03/07/2021 8:04 AM T [facility] SOURCE (QST) NASOPHARYNGEAL SWAB 03/07/2021 8:04 AM T [facility] NASOPHARYNGEAL SWAB / Unknown 03/07/2021 8:12 AM CDT us Cody Randolph MD MICROBIOLOGY - GENERAL ORDERABLE S Final Result [facility] [address] [place] [address], [place] [phone] [facility] [address] [place] [address], documented in this encounter Visit Diagnoses Diagnosis Preop testing Preoperative examination, unspecified documented in this encounter Additional Health Concerns Infection Onset Date Last Indicated Resolved Time COVID-19 Rule Out 03/07/2021 03/07/2021 03/08/2021 2:56 PM CDT documented as of this encounter Care Teams Cast Iron Drain Pipe Layer Relationship Specialty Start Date End Date Lorie Chan MD PCP - General INTERNAL MEDICINE 01/15/20 02/09/23 documented as of this encounter
--- OUTSIDE RECORDS SUMMARY | 2024-11-02 08:14 | XMS_ITS | Encounter Summary ---
Author Organization [facility] Address [address] [place] [address]. [place] [address] [place] [address] Care Team Providers Care Cross Country And Track And Field Coach Name Role Phone Lorie Chan MD Primary Care Provider [phone] Reason for Referral * Surgical (Routine) - Closed Specialty Diagnoses / Procedures Referred By Shelby jama Referred To Contact Diagnoses Pharyngoesophageal dysphagia Procedures Case request operating room: EGD Cody Randolph MD [address] [facility] [address] [place] [address] Phone: tel: fax: Referral ID Status Reason Start Date Expiration Date Visits Re quested Visits Authorized [id number] Closed 02/25/2021 03/27/2022 1 1 Encounter Details Date Type Department Care Team (Late st Contact Info) Description 02/25/2021 Orders Only [facility] Multispecialty Care - [facility] [address] [facility] [address] [place] [phone] Cody Randolph MD 3 [facility] [address] [place], [place] [address] Social History Tobacco Use Types Packs/Day Years [...] on file Legal Sex Male 9:58 PM FARM MACHINE OPERATOR Gender Identity Not on file [...] CENTER [facility] Family & Internal Medicine [facility] [address] [place] [address] [place] [address] [place], [place] [phone] 10/22/2025 9:15 AM FARM MACHINE OPERATOR Office Visit [facility] [phone] Mily Gan MD [address] [phone] Scheduled Orders Name Type Priority Associated Diagnoses Orde r Schedule Case request operating room: EGD Case Request Routine Pharyngoesophageal dysphagia Ordered: 02/25/2021 documented as of this encounter Visit Diagnoses Diagnosis Pharyngoesophageal dysphagia- Primary Dysphagia, pharyngoesophageal phase documented in this encounter Care Teams Cross Country And Track And Field Coach Relationship Specialty Start Date End Date Lorie Chan MD PCP - General INTERNAL MEDICINE 01/15/20 02/09/23 documented as of this encounter
--- OUTSIDE RECORDS SUMMARY | 2024-11-02 08:15 | XMS_ITS | Encounter Summary ---
Author Organization [facility] Address [address] [place] [address]. [place], [place] [address] [place] [address] Care Team Providers Care Director Operations Broadcast Name Role Phone Lorie Chan MD Primary Care Provider [phone] Encounter Details Date Type Department Care Team (Latest Contact Info) Description 01/12/2021 Travel Social History Tobacco Use Types Packs/Day [...] on file Legal Sex Male 9:58 PM STRAIN TECHNICIAN Gender Identity Not on file Sexual Orientation Not on file COVID-19 Exposure Response Date Recorded In the last month, have you been in contact with someone who was confirmed or suspected to have Coronavirus / COVID-19? No / Unsure 01/12/2021 7:58 AM STRAIN TECHNICIAN documented as of this encounter Plan of Treatment Upcoming Encounters Date Type Department Care Team (Late st Contact Info) Description 01/27/2025 7:00 AM CDT Office Visit [facility] Family & Internal Medicine - [place] [address] [place] [address] [place] [address] [place] [address] 10/22/2025 9:15 AM STRAIN TECHNICIAN [facility] [address] [place] [phone] Mily Gan MD [address] [address] documented as of this encounter Visit Diagnoses Not on filedocumented in this encounter Care Teams Director Operations Broadcast Relationship Specialty Start Date End Date Lorie Chan MD PCP - General INTERNAL MEDICINE 01/15/20 02/09/23 documented as of this encounter
--- OUTSIDE RECORDS SUMMARY | 2024-11-02 08:15 | XMS_ITS | Encounter Summary ---
Author Organization [facility] Address [address] [place] [address]. [place], [place] [address] [place] [address] Care Team Providers Care Market Specialist Name Role Phone Lorie Castanon MD Primary Care Provider [phone] Reason for Referral * Consultation (Routine) - Closed Specialty Diagnoses / Procedures Referred By [place] jama Referred To Contact GASTROENTEROLOGY Diagnoses Pharyngeal dysphagia Lorie Castanon MD Phone: tel: [place] [address] [place] [address] Phone: tel: fax: Referral ID Status Reason Start Date Expiration Date Visits Re quested Visits Authorized [id number] Closed 01/25/2021 01/25/2022 6 6 Scheduling Instructions DYSPHAGIA, FEELS LIKE FOOD IS CATCHING, BROTHER HAD HEAD & NECK CA PT LONG TIME SMOKER CTOR E LEARNING * Imaging (Routine) - Closed Specialty Diagnoses / Procedures Referred By [place] jama Referred To Contact RADIOLOGY Diagnoses Encounter for abdominal aortic aneurysm (AAA) screening Procedures US AORTA Lorie Castanon MD Phone: tel: fax: Referral ID Status Reason Start Date Expiration Date Visits Re quested Visits Authorized [id number] Closed 01/12/2021 02/12/2022 2 2 CTOR E LEARNING Reason for Visit * Reason Comments Follow Up Patient is here for a 6month follow up. Patient states that he has a few spots on his chest, face and arm. Noticed them for a while. States that they itch. Encounter Details Date Type Department Care Team (Late st Contact Info) Description 01/12/2021 8:00 AM DIRECTOR E LEARNING Office Visit [facility] [address] [place] [address] [place] [address] [place] [address] Follow Up (Patient is here for a 6month follow up. Patient states that he has a few spots on his chest, face and arm. Noticed them for a while. States that they itch. ) Social History Tobacco Use Types Packs/Day Years Used Date Smoking Tobacco: Every Day Cigarettes Smokeless Tobacco: Never Tobacco Cessation:Ready to Q uit: No; Counseling Given: Yes Alcohol Use Standard Drinks/Week Comments Yes 0 [...] file Legal Sex Male 9:58 PM DIRECTOR E LEARNING Gender Identity Not on file Sexual Orientation Not on file COVID-19 Exposure Response Date Recorded In the last month, have you been in contact with someone who was confirmed or suspected to have Coronavirus / COVID-19? No / Unsure 01/14/2021 3:20 PM DIRECTOR E LEARNING documented as of this encounter Last Filed Vital Signs Vital Sign Reading Time Taken Comments Blood Pressure 120/86 01/12/2021 8:09 AM DIRECTOR E LEARNING Pulse 74 01/12/2021 8:09 AM DIRECTOR E LEARNING Temperature 36.4 ??C (97.6 ??F) 01/12/2021 8:09 AM CS T Respiratory Rate 20 01/12/2021 8:09 AM DIRECTOR E LEARNING Oxygen Saturation 98% 01/12/2021 8:09 AM DIRECTOR E LEARNING Inhaled Oxygen Concentration - - Weight 72.7 kg (160 lb 3.2 oz) 01/12/2021 8:09 A M DIRECTOR E LEARNING Height 167.6 cm (5' 6 ) 01/12/2021 8:09 AM DIRECTOR E LEARNING Body Mass Index 25.86 01/12/2021 8:09 AM DIRECTOR E LEARNING documented in this encounter Progress Notes * Lorie Castanon MD - 01/12/2021 8:00 AM CST Reason for Visit: Follow Up (Patient is here for a 6month follow up. Patient states that he has a few spots on his chest, face and arm. Noticed them for a while. States that they itch. ) Follow Up Pertinent negatives include no chest pain. 65-year-old male here today to discuss lab results & a few issues like nocturia His father had premature coronary artery disease so they had him on pravastatin 80 aspirin and vitamin E He is previous PCP previously decreased him from 80 to 40 mg and he is happier with this and needs a refill today. His father had disseminated cancer and CHF & his brother has a tumor around his windpipe so he knows he needs to quit smoking (1/2 pack per day) & drinks 3-4 beers daily ( now having less nocturia with decreased beer) He would like to be screened for an aortic aneurysm Doing well on CPAP He uses this regularly without problems He has arthritis has been taking Osteo Bi-Flex and is happy with how the Meloxicam helps & would like a refill. Recently he has been doing a lot with his right arm and has some tenderness in the area of the right elbow specially if he pronates and supinates or rests his elbow on a hard surface such as driving a car, this comes and goes He noticed the skin lesion on his chest which are itchy and would like to have them checked to see if anything needs to be done. Has sometimes when he feels like food is getting stuck & would like an upper scope. Review of Systems Constitutional: Negative. HENT: Negative. Eyes: Negative. Respiratory: Negative. RANDY on CPAP Cardiovascular: Negative. Negative for chest pain. Gastrointestinal: Negative. Genitourinary: Nocturia Musculoskeletal: Positive for joint pain. Skin: Itchy skin lesions on his chest Neurological: Negative. Psychiatric/Behavioral: Negative. Current Outpatient Medications: ??? aspirin 81 MG chewable tablet, Chew [...] daily., Disp: 90 tablet, Rfl: 1 ??? Vitamin E 400 units Tab, Take 400 Units by mouth daily., Disp: , Rfl: ??? Misc Natural Products (OSTEO BI-FLEX JOINT SHIELD OR), Take 1 tablet by mouth 2 (two) times daily., Disp: , Rfl: Allergies Allergen Reactions ??? Morphine Itching Past Medical History: Diagnosis Date ??? Cervical stenosis of spine ??? Hyperlipidemia ??? Influenza vaccine administered ??? RANDY (obstructive sleep apnea) Past Surgical History: Procedure Laterality Date ??? COLONOSCOPY N/A 2013 ??? HERNIA REPAIR Right [facility] ??? HERNIA REPAIR Left [facility] ??? NECK/CHEST PROCEDURE UNLISTED Right [facility], re-built right side of neck. ??? TOTAL KNEE ARTHROPLASTY Bilateral ZANA Partial KR, done @ [facility] Social History Socioeconomic History ??? Marital [...] file Gets together: Not on file Attends tenriism service: Not on file Active member of [...] History Narrative ??? Not on file Family History Problem Relation Name Age of Onset ??? Arthritis in Adults Mother ??? Dementia Mother at the end per patient ??? Hypertension Mother ??? Cancer Father ??? Heart Father ??? Heart Disease Father Family Status Relation Name Status ??? Mother ??? Father Filed Vitals: 01/12/21 0809 BP: 120/86 Pulse: 74 Resp: 20 Temp: 97.6 ??F (36.4 ??C) TempSrc: Temporal SpO2: 98% Weight: 72.7 kg (160 lb 3.2 oz) Height: 5' 6 (1.676 m) Body mass index is 25.86 kg/m??. Physical Exam Constitutional: He is oriented to person, place, and time. He appears well- developed and well-nourished. HENT: Head: Normocephalic. Eyes: Pupils are equal, round, and reactive to light. Conjunctivae are normal. Neck: Neck supple. Cardiovascular: Normal rate, regular rhythm and normal heart sounds. Pulmonary/Chest: Effort normal and breath sounds normal. Abdominal: Soft. Bowel sounds are normal. Musculoskeletal: Normal range of motion. Neurological: He is alert and oriented to person, place, and time. No cranial nerve deficit. Skin: Skin is warm and dry. Keratosis on chest Psychiatric: He has a normal mood and affect. Judgment normal. Assessment/PLAN 1. Mixed hyperlipidemia - atorvastatin 40 MG tablet; Take 1 tablet (40 mg total) by mouth nightly at bedtime. Dispense: 90 tablet; Refill: 1 - CBC W/DIFF AUTOMATED; Future - COMPREHENSIVE METABOLIC PANEL; Future - LIPID PANEL; Future - TSH W/REFLEX; Future - VITAMIN B12 / FOLATE; Future 2. Primary osteoarthritis involving multiple joints - meloxicam 15 MG tablet; Take 1 tablet (15 mg total) by mouth daily. Dispense: 90 tablet; Refill: 1 3. Encounter for abdominal aortic aneurysm (AAA) screening - US AORTA; Future 4. Pharyngeal dysphagia - Ambulatory referral to Gastroenterology (OTHER) 5. Prostate cancer screening - PROSTATE SPECIFIC ANTIGEN,SCREENING; Future Discussed his risk factors with his father whether or not he wanted to take pravastatin 40 OOR 80 and is doing well on this. Study showed that aspirin is not good for prevention we will give this some consideration. Continue healthy diet regular exercise and maintain normal body weight Osteoarthritis will give him meloxicam and he is doing well on this & requests a refills Keratosis chest, observation for now He is having nocturia,decrease beer & D/C smoking, recommend 1-800-quit smoking now. Doing well with his CPAP, good compliance, order supplies. Fu 6 months check lipids before fu Follow up FU 6 MONTHS LORIE CASTANON MD 02/12/2021 9:16 AM documented in this encounter Plan of Treatment Upcoming Encounters Date Type Department Care Team (Late st Contact Info) Description 01/27/2025 7:00 AM CDT Office Visit [facility] Family & Internal Medicine [address] [address] Ilir Nelson PA [address] [place] [address] 10/22/2025 9:15 AM DIRECTOR E LEARNING Office Visit [facility] [address] [facility] [place] [place] [address] Mily Gan MD [facility] [address] [place] [address] Scheduled Referrals Name Type Priority Associated Diagnoses Orde r Schedule Ambulatory referral to Gastroenterology (OTHER) Referral Routine Pharyngeal dysphagia Ordered: 01/12/2021 documented as of this encounter Results * (ABNORMAL) VITAMIN B12 / FOLATE (07/07/2021 10:38 AM CDT) VITAMIN B12 S/P/B 1,297(H) 193 - 986 PG/ML 07/07/2021 12:04 PM CDT [facility] FOLATE >20.0 8.6 - 58.9 NG/ML 07/07/2021 12:04 PM CDT [facility] 07/07/2021 10:3 8 AM CDT us Lorie Castanon MD LABORATORY Final Result [facility] [address] [place] [address], [place] [phone] * TSH W/REFLEX (07/07/2021 10:38 AM CDT) TSH 1.649 0.358 - 3.74 uIU/ML 07/07/2021 12:04 PM CDT [facility] Comment: HIGH DOSES OF BIOTIN MAY INTERFERE WITH THIS TEST RESULT. CORRELATION TO CLINICAL HISTORY AND PRESENTATION RECOMMENDED. FREE T4 NOT INDICATED 07/07/2021 10:3 8 AM CDT us Lorie Castanon MD LABORATORY Final Result [facility] [address] [place] [address], [place] [phone] * PROSTATE SPECIFIC ANTIGEN,SCREENING (07/07/2021 10:38 AM CDT) PSA 1.10 <4.00 NG/ML 07/07/2021 11:22 AM CDT [facility] Comment: Test was performed using the Siemens method. ??Results obtained with other assay methods or kits cannot be used interchangeably with results obtained by the Siemens method. 07/07/2021 10:3 8 AM CDT Lorie Castanon MD LABORATORY Final Result Performing Organization Address [facility] Co de Phone Number [facility] [address] [place] [address], [place] [phone] * LIPID PANEL (07/07/2021 10:38 AM CDT) CHOLESTEROL 137 <200.0 MG/DL 07/07/2021 12:04 PM CDT [facility] TRIGLYCERIDES 95 <150 MG/DL 07/07/2021 12:04 PM T [facility] HDL 52 >40.0 MG/DL 07/07/2021 12:04 PM T [facility] LDL (CALCULATED) 66 <100 MG/DL 07/07/20 21 12:04 PM T [facility] NON HDL CHOLESTEROL 85 <130 MG/DL 07/07 12:04 PM T [facility] CHOL/HDL RATIO 2.6 0.0 - 4.5 07/07/2021 12:04 PM T [facility] VLDL CALCULATION 19 5 - 55 MG/DL 07/07/2021 12:04 PM CDT [facility] LIPID INTERPRETATION 07/07/2021 12:04 PM CDT [facility] Comment: NIH CONCENSUS REPORT RECOMMENDATIONS: [...] >=160 ?>=130 07/07/2021 10:3 8 AM CDT Lorie Castanon MD LABORATORY Final Result [facility] [address] [place] [address], [place] [phone] * (ABNORMAL) COMPREHENSIVE METABOLIC PANEL (07/07/2021 10:38 AM CDT) [facility] Signature GLUCOSE 100(H) 70 - 99 MG/DL 07/07/2021 12:04 PM CDT [facility] BUN 12 7 - 18 MG/DL 07/07/2021 12:04 PM CDT [facility] CREATININE S/P/B 0.95 0.7 - 1.3 MG/DL 07/07/2021 12:04 PM T [facility] SODIUM S/P/B 142 136 - 145 MMOL/L 07/07/2021 12:04 PM T [facility] POTASSIUM S/P/B 5.3(H) 3.5 - 5.1 MMOL/L 07/07/2021 12:04 PM T [facility] CHLORIDE S/P/B 106 100 - 108 MMOL/L 07/07/2021 12:04 PM T [facility] CO2 33.1(H) 21 - 32 MMOL/L 07/07/2021 12:04 PM T [facility] CALCIUM S/P/B 9.2 8.5 - 10.1 MG/DL 07/07/2021 12:04 PM T [facility] BILIRUBIN TOTAL S/P/B 0.8 0.2 - 1.2 MG/DL 07/07/2021 12:04 PM T [facility] TOTAL PROTEIN S/P/B 7.9 6.4 - 8.2 G/DL 07/07/2021 12:04 PM CDT [facility] ALBUMIN S/P/B 3.7 3.4 - 5.0 G/DL 07/07/2021 12:04 PM CDT [facility] AST 24 15 - 37 U/L 07/07/2021 12:04 PM T [facility] ALT 30 16 - 60 U/L 07/07/2021 12:04 PM T [facility] ALKALINE PHOSPHATASE S/P/B 53 50 - 136 U/L 07/07/2021 12:04 PM T [facility] ANION GAP 2.9(L) 5 - 15 MMOL/L 07/07/2021 12:04 PM T [facility] BUN CREATININE RATIO 12.6 6 - 26 07/07/2021 12:04 PM T [facility] A/G RATIO 0.9(L) 1.0 - 2.0 RATIO 07/07/2021 12:04 PM [facility] EGFR NON-AFR. AMER. 83(L) >90 ML/MIN/1.7 3 M2 07/07/2021 12:04 PM T [facility] EGFR AFR. AMER. >90 >90 ML/MIN/1.7 3 M2 07/07/2021 12:04 PM T [facility] Comment: NOTE: eGFR is not calculated for patients <18 years of age. This is an estimated GFR (CKD EPI) and should not be used for calculating drug doses. 07/07/2021 10:3 8 AM CDT us Lorie Castanon MD LABORATORY Final Result [facility] [address] [place] [address], [place] [phone] * (ABNORMAL) CBC W/DIFF AUTOMATED (07/07/2021 10:38 AM CDT) [facility] WBC 4.5 4.4 - 11.0 x10'3/uL 07/07/2021 10:56 AM CDT [facility] RBC 4.70 4.50 - 5.90 x10'6/uL 07/07/2021 10:56 AM T [facility] HGB 14.8 14.0 - 17.5 G/DL 07/07/2021 10:56 AM T [facility] HCT 44.4 41.5 - 50.4 % 07/07/2021 10:56 AM T [facility] MCV 94.5 80.0 - 96.0 FL 07/07/2021 10:56 AM T [facility] MCH 31.5(H) 26.5 - 31.4 PG 07/07/2021 10:56 AM T [facility] MCHC 33.3 31.9 - 34.8 G/DL 07/07/2021 10:56 AM T [facility] RDW 13.3 12.3 - 14.3 % 07/07/2021 10:56 AM T [facility] PLT 275 151 - 353 x10'3/uL 07/07/2021 10:56 AM T [facility] MPV 10.2 9.7 - 11.9 FL 07/07/2021 10:56 AM T [facility] RBC MORPHOLOGY NORMAL 07/07/2021 10:56 AM T [facility] PLT MORPH. NORMAL 07/07/2021 10:56 AM T [facility] WBC MORPHOLOGY NORMAL 07/07/2021 10:56 AM T [facility] LYMPHOCYTES % 37.0 15.8 - 45.0 % 07/07/2021 10:56 AM CDT [facility] NEUTROPHILS % 48.6 42.1 - 71.9 % 07/07/2021 10:56 AM CDT [facility] MONOCYTES % 11.5 5.7 - 12.5 % 07/07/2021 10:56 AM CDT [facility] EOSINOPHILS 1.8 0.0 - 5.6 % 07/07/2021 10:56 AM CDT [facility] BASOPHILS 0.9 0.0 - 1.3 % 07/07/2021 10:56 AM CDT [facility] ABS. NEUTROPHILS TOTAL 2.21 1.40 - 6.00 x10'3/uL 07/07/2021 10:56 AM CDT [facility] IMMATURE GRANS % 0.2 0.0 - 0.5 % 07/07/2021 10:56 AM CDT [facility] ABS. LYMPHOCYTES 1.68 0.80 - 4.70 x10'3/uL 07/07/2021 10:56 AM CDT [facility] 07/07/2021 10:3 8 AM CDT us Lorie Castanon MD LABORATORY Final Result Performing Organization Address City/State/[facility] Co de Phone Number [facility] [address] [place] [address], [place] [phone] * US AORTA (01/15/2021 8:43 AM DIRECTOR E LEARNING) Anatomical Region Laterality Modality Abdomen Ultrasound 01/15/2021 10:5 9 AM DIRECTOR E LEARNING Impressions 01/15/2021 11:00 AM DIRECTOR E LEARNING IMPRESSION: 1. ??No evidence of abdominal aortic aneurysm. Referred By: LORIE CASTANON Interpreted By: Moncho Cheng, 01/15/2021 10:59 AM Narrative 01/15/2021 11:00 AM DIRECTOR E LEARNING IMAGING STUDIES: ??US AORTA ? DATE: ??01/15/2021 8:27 AM COMPARISON STUDIES: No previous available. ?? CLINICAL HISTORY: ??AAA screening > 50 pack years tob ?.Additional history FINDINGS: ?? Real-time ultrasound examination of the aorta was performed by the operation manager using B-mode/arriaza-scale, Doppler spectral analysis and color [...] of the aorta was performed by the operation manager using B-mode/arriaza-scale, Doppler spectral analysis and color [...] Diagnosis Encounter for abdominal aortic aneurysm (AAA) screening- Primary Mixed hyperlipidemia Primary osteoarthritis involving multiple joints Pharyngeal dysphagia Dysphagia, pharyngeal phase Prostate cancer screening Special screening for malignant neoplasm of prostate Encounter for abdominal aortic aneurysm (AAA) screening documented in this encounter Care Teams Market Specialist Relationship Specialty Start Date End Date Lorie Castanon MD PCP - General INTERNAL MEDICINE 01/15/20 02/09/23 documented as of this encounter
--- OUTSIDE RECORDS SUMMARY | 2024-11-02 08:15 | XMS_ITS | Encounter Summary ---
Author Organization [facility] Address [address] [place] [address]. [place] [address] [place] [address] Care Team Providers Care Digital Content Specialist Name Role Phone Lorie Chan MD Primary Care Provider [phone] Encounter Details Date Type Department Care Team (Latest Contact Info) Description 01/06/2021 Travel Social History Tobacco Use Types Packs/Day Years Used Date Smoking Tobacco: Every Day Cigarettes Smokeless Tobacco: Never Alcohol Use Standard Drinks/Week Comments Yes 0 (1 standard drink = 0.6 oz pur e alcohol) Occasionally PHQ-2 Answer Date Recorded PHQ-2 Score 0 01/15/2020 Sex and Gender Information Value Date Recorded Sex Assigned at Not on file Legal Sex Male 9:58 PM HOUSEHOLD REFRIGERATION MECHANIC Gender Identity Not on file Sexual Orientation Not on file COVID-19 Exposure Response Date Recorded In the last month, have you been in contact with someone who was confirmed or suspected to have Coronavirus / COVID-19? No / Unsure 01/06/2021 6:54 AM HOUSEHOLD REFRIGERATION MECHANIC documented as of this encounter Plan of Treatment Upcoming Encounters Date Type Department Care Team (Late st Contact Info) Description 01/27/2025 7:00 AM CDT Office Visit [facility] Family & Internal Medicine [facility] [address] [place] [address] [place] [id number] [place] [address] 10/22/2025 9:15 AM HOUSEHOLD REFRIGERATION MECHANIC Office Visit [facility] [address] [place] [address] Mily Gan MD [facility] [address] [place] [address] documented as of this encounter Visit Diagnoses Not on filedocumented in this encounter Care Teams Digital Content Specialist Relationship Specialty Start Date End Date Lorie Chan MD PCP - General INTERNAL MEDICINE 01/15/20 02/09/23 documented as of this encounter
--- OUTSIDE RECORDS SUMMARY | 2024-11-02 08:15 | XMS_ITS | Encounter Summary ---
Author Organization [facility] Address [address] [place] [address]. [place], [place] [id number] [place] [address] Care Team Providers Care Broiler Chef Or Cook Name Role Phone Lorie Chan MD Primary Care Provider [phone] Encounter Details Date Type Department Care Team (Latest Contact Info) Description 01/06/2021 6:55 AM MANAGER HEMATOLOGY - 01/06/2021 11:59 PM MANAGER HEMATOLOGY Hospital Encounter [facility] [address] [place] [address] [place] [address] [place], [place] [id number] Discharge Disposition: Home or Self Care (Routine [...] file Legal Sex Male 9:58 PM MANAGER HEMATOLOGY Gender Identity Not on file Sexual Orientation Not on file COVID-19 Exposure Response Date Recorded In the last month, have you been in contact with someone who was confirmed or suspected to have Coronavirus / COVID-19? No / Unsure 01/06/2021 6:54 AM MANAGER HEMATOLOGY documented as of this encounter Medications at [...] by mouth daily. Indications: Nutritional Support 1 CPAP SUPPLIESIndications :RANDY on CPAP 1 Units by Does not apply route nightly at bedtime. Mask, tubing & filters 1 Device 3 0 10/09/20 24 meloxicam 15 MG tabletIndications:P rimary osteoarthritis involving multiple joints Take 1 tablet (15 mg total) by mouth daily. 90 tablet 1 0 01/13/20 21 Misc Natural Products (OSTEO BI-FLEX JOINT SHIELD OR) Take 1 tablet by mouth 2 (two) times daily. 03/24/20 21 oxybutynin 5 MG tabletIndications:F requent urination Take 1 tablet (5 mg total) by mouth 2 (two) times daily. 60 tablet 2 1 01/13/20 21 pravastatin 40 MG tabletIndications:M ixed hyperlipidemia Take 1 tablet (40 mg total) by mouth nightly at bedtime. 90 tablet 1 0 01/13/20 21 documented as of this encounter Plan of Treatment Upcoming Encounters Date Type Department Care Team (Late st Contact Info) Description 01/27/2025 7:00 AM CDT Office Visit [facility] Family & Internal Medicine [facility] [address] [place] [address] [place] Nelson [place] [id number] [place] [address] 10/22/2025 9:15 AM MANAGER HEMATOLOGY [facility] [address] [place] [phone] Mily Gan MD [facility] [address] [place] [id number] documented as of this encounter Procedures Procedure Name Priority Date/Time Associated Diagnosis Comments LIPID PANEL Routine 01/06/2021 7:11 AM MANAGER HEMATOLOGY Mixed hyperlipidemia HEPATITIS C ANTIBODY Routine 01/06/2021 7:11 AM MANAGER HEMATOLOGY Need for hepatitis C screening test CBC W/DIFF AUTOMATED Routine 01/06/2021 7:11 AM MANAGER HEMATOLOGY Mixed hyperlipidemia ALT/SGPT Routine 01/06/2021 7:11 AM MANAGER HEMATOLOGY Mixed hyperlipidemia documented in this encounter Results * HEPATITIS C ANTIBODY (01/06/2021 7:11 AM MANAGER HEMATOLOGY) Pathologist [facility] [place] HEPATITIS C AB NON-REACTI VE NON-REACTI VE 01/06/2021 3:24 PM MANAGER HEMATOLOGY [facility] 01/06/2021 7:11 AM MANAGER HEMATOLOGY us Lorie Chan MD LABORATORY Final Result [facility] [address] [place] [address], [place] [phone] * (ABNORMAL) CBC W/DIFF AUTOMATED (01/06/2021 7:11 AM MANAGER HEMATOLOGY) Pathologist [facility] WBC 5.2 4.4 - 11.0 x10'3/uL 01/06/2021 7:29 AM MANAGER HEMATOLOGY [facility] RBC 4.49(L) 4.50 - 5.90 x10'6/uL 01/06/2021 7:29 AM MANAGER HEMATOLOGY [facility] HGB 14.5 14.0 - 17.5 G/DL 01/06/2021 7:29 AM MANAGER HEMATOLOGY [facility] HCT 42.5 41.5 - 50.4 % 01/06/2021 7:29 AM [facility] MCV 94.7 80.0 - 96.0 FL 01/06/2021 7:29 AM [facility] MCH 32.3(H) 26.5 - 31.4 PG 01/06/2021 7:29 AM [facility] MCHC 34.1 31.9 - 34.8 G/DL 01/06/2021 7:29 AM [facility] RDW 12.7 12.3 - 14.3 % 01/06/2021 7:29 AM [facility] PLT 257 151 - 353 x10'3/uL 01/06/2021 7:29 AM [facility] MPV 10.5 9.7 - 11.9 FL 01/06/2021 7:29 AM [facility] RBC MORPHOLOGY NORMAL 01/06/2021 7:29 AM [facility] PLT MORPH. NORMAL 01/06/2021 7:29 AM [facility] WBC MORPHOLOGY NORMAL 01/06/2021 7:29 AM [facility] LYMPHOCYTES % 34.4 15.8 - 45.0 % 01/06/2021 7:29 AM [facility] NEUTROPHILS % 52.8 42.1 - 71.9 % 01/06/2021 7:29 AM [facility] MONOCYTES % 9.6 5.7 - 12.5 % 01/06/2021 7:29 AM [facility] EOSINOPHILS 1.7 0.0 - 5.6 % 01/06/2021 7:29 AM [facility] BASOPHILS 1.3 0.0 - 1.3 % 01/06/2021 7:29 AM [facility] ABS. NEUTROPHILS TOTAL 2.74 1.40 - 6.00 x10'3/uL 01/06/2021 7:29 AM [facility] IMMATURE GRANS % 0.2 0.0 - 0.5 % 01/06/2021 7:29 AM [facility] ABS. LYMPHOCYTES 1.79 0.80 - 4.70 x10'3/uL 01/06/2021 7:29 AM [facility] 01/06/2021 7:11 AM MANAGER HEMATOLOGY us Lorie Chan MD LABORATORY Final Result [facility] [address] [place] [address], [place] [phone] * ALT/SGPT (01/06/2021 7:11 AM MANAGER HEMATOLOGY) ALT 25 16 - 60 U/L 01/06/2021 7:43 AM [facility] 01/06/2021 7:11 AM MANAGER HEMATOLOGY us Lorie Chan MD LABORATORY Final Result Performing Organization Address City/[facility]/ZIP Co de Phone Number [facility] [address] [place] [address], [place] [phone] * (ABNORMAL) LIPID PANEL (01/06/2021 7:11 AM MANAGER HEMATOLOGY) CHOLESTEROL 200(H) <200.0 MG/DL 01/06/2021 7:43 AM [facility] TRIGLYCERIDES 79 <150 MG/DL 01/06/2021 7:43 AM [facility] HDL 51 >40.0 MG/DL 01/06/2021 7:43 AM MANAGER HEMATOLOGY [facility] LDL (CALCULATED) 133(H) <100 MG/DL 01/06/2021 7:43 AM [facility] NON HDL CHOLESTEROL 149(H) <130 MG/DL 01/06/2021 7:43 AM [facility] CHOL/HDL RATIO 3.9 0.0 - 4.5 01/06/2021 7:43 AM [facility] VLDL CALCULATION 16 5 - 55 MG/DL 01/06/2021 7:43 AM [facility] LIPID INTERPRETATION 01/06/2021 7:43 AM [facility] Comment: [facility] [...] ?HDL ?<40 ?--- ?LDL ? >=160 ?>=130 01/06/2021 7:11 AM MANAGER HEMATOLOGY Lorie Chan MD LABORATORY Final Result Performing Organization Address City/State/[facility] Co de Phone Number [facility] [address] [place] [address], documented in this encounter Visit Diagnoses Diagnosis Mixed hyperlipidemia Need for hepatitis C screening test Special screening examination for other specified viral diseases documented in this encounter Care Teams Broiler Chef Or Cook Relationship Specialty Start Date End Date Lorie Chan MD PCP - General INTERNAL MEDICINE 01/15/20 02/09/23 documented as of this encounter
--- OUTSIDE RECORDS SUMMARY | 2024-11-02 08:16 | XMS_ITS | Encounter Summary ---
Author Organization [facility] Address [address] [place] [address]. [place], [place] [address] [place] [address] Care Team Providers Care Professor Of Philosophy Name Role Phone Lorie Chan MD Primary Care Provider [phone] Reason for Visit * Reason Onset Date Comments Cough 02/05/2020 pt complains of 1 week hx of cough productive of yellow phlemn in am then clear rest of the day, sore throat, fatigue, headache, head congestion, headache, AM yellow nasal discharge then clear, sore throat, smokes 1/2 ppd, Encounter Details Date Type Department Care Team (Late st Contact Info) Description 02/05/2020 Telephone [facility] Family & Internal Medicine [facility] [id number] [place] [phone] Lorie Chan MD [address] [place] [address] Cough (pt complains of 1 week hx of cough productive of yellow phlemn in am then clear rest of the day, sore throat, fatigue, headache, head congestion, headache, AM yellow nasal discharge then clear, sore throat, smokes 1/2 ppd, ) Social History Tobacco Use Types Packs/Day Years Used Date Smoking Tobacco: Every Day Cigarettes Smokeless Tobacco: Never Alcohol Use Standard Drinks/Week Comments Yes 0 (1 standard drink = 0.6 oz pur e alcohol) Occasionally PHQ-2 Answer Date Recorded PHQ-2 Score 0 01/15/2020 Sex and Gender Information Value Date Recorded Sex Assigned at Not on file 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 Denies shortness of breath, body aches, chills, diarrhea. Has been taking Zyrtec D. Grandchildren were visiting 16-26 and were sick. Has Keflex 500mg to take every 8 hours 17 pills from previous cut finger. Should he take? [phone] please advise. Uses Buddy Gallagher Pt instructions: Push PO fluids, take over the counter Tylenol, decongestants, cough medications. Log twice daily temperature and any symptoms as they occur or resolve . Stay home, self isolate, use good hand hygiene, sanitize all surfaces. If symptoms worsen return call with update. Has not been using CPAP- needs new mask and tubing. Will call insurance company and call back with where to send order. Previous supplier was [facility]. Dr. Gonsalez. documented in this encounter Plan of Treatment Upcoming Encounters Date Type Department Care Team (Late st Contact Info) Description 01/27/2025 7:00 AM CDT Office Visit [facility] Family & Internal Medicine [address] [address] Ilir Nelson PA [address] [place] [address] 10/22/2025 9:15 AM VICE PRESIDENT [employer] Office Visit [facility] [address] [place] [address] Mily Gan MD [facility] [address] [place] [address] documented as of this encounter Visit Diagnoses Not on filedocumented in this encounter Care Teams Professor Of Philosophy Relationship Specialty Start Date End Date Lorie Chan MD PCP - General INTERNAL MEDICINE 01/15/20 02/09/23 documented as of this encounter
--- OUTSIDE RECORDS SUMMARY | 2024-11-02 08:16 | XMS_ITS | Encounter Summary ---
Author Organization [facility] Address [address] [place] [address]. [place], [place] [address] [place] [address] Care Team Providers Care Banking Paralegal Name Role Phone Lorie Castanon MD Primary Care Provider [phone] Reason for Visit * Reason Comments Follow Up Routine, 6 month fol low up. having some issues with frequent urination at hs. states he has noticed it has gotten worse in the last month or so. Encounter Details Date Type Department Care Team (Late st Contact Info) Description 07/21/2020 11:00 AM CDT Office Visit [facility] Family & Internal Medicine [address] [address] [place] Castanon [place] [id number] [place] [address] Follow Up (Routine, 6 month follow up. having some issues with frequent urination at hs. states he has noticed it has gotten worse in the last month or so. 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 No / Unsure 07/21/2020 10:39 AM CDT documented as of this encounter Last Filed Vital Signs Vital Sign Reading Time Taken Comments Blood Pressure 130/78 07/21/2020 10:43 AM CDT Pulse 82 07/21/2020 10:43 AM CDT Temperature 36.7 ??C (98 ??F) 07/21/2020 10:43 AM CDT Respiratory Rate 18 07/21/2020 10:43 AM CDT Oxygen Saturation 98% 07/21/2020 10:43 AM CDT Inhaled Oxygen Concentration - - Weight 73.7 kg (162 lb 6.4 oz) 07/21/2020 10:43 AM CDT Height 167.6 cm (5' 6 ) 07/21/2020 10:43 AM CDT Body Mass Index 26.21 07/21/2020 10:43 AM CDT documented in this encounter Progress Notes * Lorie Castanon MD - 07/21/2020 11:00 AM CDT Reason for Visit: Follow Up (Routine, 6 month follow up. having some issues with frequent urination at hs. states he has noticed it has gotten worse in the last month or so. ) Follow Up Pertinent negatives include no chest pain. 65-year-old male here today to discuss lab results & a few issues like nocturis His father had premature coronary artery disease so they had him on pravastatin 80 aspirin and vitamin E He is previous PCP decided to decrease him from 80 to 40 mg and he is happier with this and needs arefill today. His father had disseminated cancer before CHF & his brother has a tumor around his windpipe so he knows he needs to quit smoking (1/2 pack per day) & drinks 3- 4 beers daily. Doing well on CPAP but needs an order for supplies, mask, hose & filters (records at [facility]) He uses this regularly without problems He [...] a hard surface such as driving a car. He has had labs in the past with good kidney function. Hyperlipidemia (Follow-Up): The patient states his hyperlipidemia has been stable since the last visit. Comorbid Illnesses: hypertension. he has no significant interval events. Symptoms: The patient is currently asymptomatic. Associated symptoms include no focal neurologic deficits and no memory loss. Medications: the patient is adherent with him medication regimen. he denies medication side effects. Review of Systems Constitutional: Negative. HENT: Negative. Eyes: Negative. Respiratory: Negative. RANDY on CPAP Cardiovascular: Negative. Negative for chest pain. Gastrointestinal: Negative. Genitourinary: Positive for frequency. Nocturia Musculoskeletal: Positive for joint pain. Right elbow and other joints see HPI Skin: Negative. Neurological: Negative. Psychiatric/Behavioral: Negative. Current Outpatient Medications: ??? aspirin 81 MG chewable tablet, Chew 81 mg by mouth daily., Disp: , Rfl: ??? Cholecalciferol (VITAMIN D) 50 MCG (1999) Cap, Take 25 mcg by mouth daily., [...] (two) times daily., Disp: , Rfl: ??? oxybutynin 5 MG tablet, Take 1 tablet (5 mg total) by mouth 2 (two) times daily., Disp: 60 tablet, Rfl: 2 ??? pravastatin 40 MG tablet, Take 1 tablet (40 mg total) by mouth nightly at bedtime., Disp: 90 tablet, Rfl: 1 ??? Vitamin E 400 units Tab, Take 400 Units by mouth daily., Disp: , Rfl: Allergies Allergen Reactions ??? Morphine Itching Past Medical History: Diagnosis Date ??? Cervical stenosis of spine ??? Hyperlipidemia ??? Influenza vaccine administered ??? RANDY (obstructive sleep apnea) Past Surgical History: Procedure Laterality Date ??? COLONOSCOPY N/A 2013 ??? HERN[facility] REPAIR [facility] ??? HERNIA REPAIR Left [facility] ??? NECK/CHEST PROCEDURE UNLISTED Right [facility], re-built right side of neck. ??? TOTAL KNEE ARTHROPLASTY Bilateral ZANA [facility] KR[facility] Social History Socioeconomic History ??? Marital status: Spouse name: Not on file ??? Number of children: Not on file ??? Years of education: Not on file ??? Highest education level: Not on file Occupational History ??? Not on file Social Needs ??? Financial resource strain: Not on file ??? Food insecurity: Worry: Not on file Inability: Not on file ??? Transportation needs: Medical: Not on file Non-medical: Not on file Tobacco Use ??? Smoking status: Current Every Day Smoker Packs/day: 0.50 Types: Cigarettes ??? Smokeless tobacco: Never Used Substance and Sexual Activity ??? Alcohol use: Yes Comment: Occasionally ??? Drug use: Never ??? Sexual activity: Not Currently Partners: Female Lifestyle ??? Physical activity: Days per week: Not on file Minutes per session: Not on file ??? Stress: Not on file Relationships ??? Social connections: Talks on phone: Not on file Gets together: Not on file Attends [employer]ian service: Not on file Active member of club or organization: Not on file Attends meetings of clubs or organizations: Not on file Relationship status: Not on file ??? Intimate partner violence: Fear of current or ex partner: Not [...] Status ??? Mother ??? Father Filed Vitals: 07/21/20 1043 BP: 130/78 Pulse: 82 Resp: 18 Temp: 98 ??F (36.7 ??C) TempSrc: Temporal SpO2: 98% Weight: 73.7 kg (162 lb 6.4 oz) Height: 5' 6 (1.676 m) Body mass index is 26.21 kg/m??. Physical Exam Constitutional: He is oriented [...] mood and affect. Judgment normal. Assessment/PLAN 1. Frequent urination - URINALYSIS AUTO DIP - oxybutynin 5 MG tablet; Take 1 tablet (5 mg total) by mouth 2 (two) times daily. Dispense: 60 tablet; Refill: 2 2. Mixed hyperlipidemia - pravastatin 40 MG tablet; Take 1 tablet (40 mg total) by mouth nightly at bedtime. Dispense: 90 tablet; Refill: 1 - LIPID PANEL; Future - ALT/SGPT; Future - CBC W/DIFF AUTOMATED; Future 3. BMI 26.0-26.9,adult 4. Frequency of urination 5. Primary osteoarthritis involving multiple joints - meloxicam 15 MG tablet; Take 1 tablet (15 mg total) by mouth daily. Dispense: 90 tablet; Refill: 1 6. RANDY on CPAP - CPAP SUPPLIES; 1 Units by Does not apply route nightly at bedtime. Mask, tubing & filters Dispense: 1 Device; Refill: 3 Discussed his risk factors with his father whether or not he wanted to take pravastatin 40 and is doing well on this. Study showed that aspirin is not good for prevention we will give this some consideration. Continue healthy diet regular exercise and maintain normal body weight Osteoarthritis will give him meloxicam and he is doing well on this & requests a refills Update fluevaccine. He is having nocturia, check U dip, decrease beer & D/C smoking, recommend 1-800-quit smoking now. Doing well with his CPAP, good compliance, order supplies. Fu 6 months check lipids before fu Follow up FU 6 MONTHS LORIE CASTANON MD 07/21/2020 11:31 AM documented in this encounter Plan of Treatment Upcoming Encounters Date Type Department Care Team (Late st Contact Info) Description 01/27/2025 7:00 AM CDT Office Visit [facility] Family & Internal Medicine [facility] [address] [place] [address] [place] [address] [place] [address] 10/22/2025 9:15 AM LAND EXAMINER Office Visit [facility] [address] [address] Mily Gan MD Three [address] [address] documented as of this encounter Procedures Procedure Name Priority Date/Time Associated Diagnosis Comments URINALYSIS AUTO DIP Routine 07/21/2020 Frequent urination Frequency of urination documented in this encounter Results * HEPATITIS C ANTIBODY (01/06/2021 7:11 AM LAND EXAMINER) [facility] HEPATITIS C AB NON-REACTI VE NON-REACTI VE 01/06/2021 3:24 PM LAND EXAMINER [facility] 01/06/2021 7:11 AM LAND EXAMINER us Lorie Castanon MD LABORATORY Final Result [facility] [address] [place] [address], [place] [phone] * (ABNORMAL) CBC W/DIFF AUTOMATED (01/06/2021 7:11 AM LAND EXAMINER) [facility] WBC 5.2 4.4 - 11.0 x10'3/uL 01/06/2021 7:29 AM [facility] RBC 4.49(L) 4.50 - 5.90 x10'6/uL 01/06/2021 7:29 AM [facility] HGB 14.5 14.0 - 17.5 G/DL 01/06/2021 7:29 AM [facility] HCT 42.5 41.5 - 50.4 % 01/06/2021 7:29 AM [facility] MCV 94.7 80.0 - 96.0 FL 01/06/2021 7:29 AM [facility] MCH 32.3(H) 26.5 - 31.4 PG 01/06/2021 7:29 AM [facility] MCHC 34.1 31.9 - 34.8 G/DL 01/06/2021 7:29 AM [facility] RDW 12.7 12.3 - 14.3 % 01/06/2021 7:29 AM [facility] PLT 257 151 - 353 x10'3/uL 01/06/2021 7:29 AM [facility] MPV 10.5 9.7 - 11.9 FL 01/06/2021 7:29 AM [facility] RBC MORPHOLOGY NORMAL 01/06/2021 7:29 AM [facility] PLT MORPH. NORMAL 01/06/2021 7:29 AM [facility] WBC MORPHOLOGY NORMAL 01/06/2021 7:29 AM [facility] LYMPHOCYTES % 34.4 15.8 - 45.0 % 01/06/2021 7:29 AM [facility] NEUTROPHILS % 52.8 42.1 - 71.9 % 01/06/2021 7:29 AM [facility] MONOCYTES % 9.6 5.7 - 12.5 % 01/06/2021 7:29 AM [facility] EOSINOPHILS 1.7 0.0 - 5.6 % 01/06/2021 7:29 AM [facility] BASOPHILS 1.3 0.0 - 1.3 % 01/06/2021 7:29 AM [facility] ABS. NEUTROPHILS TOTAL 2.74 1.40 - 6.00 x10'3/uL 01/06/2021 7:29 AM [facility] IMMATURE GRANS % 0.2 0.0 - 0.5 % 01/06/2021 7:29 AM [facility] ABS. LYMPHOCYTES 1.79 0.80 - 4.70 x10'3/uL 01/06/2021 7:29 AM [facility] 01/06/2021 7:11 AM LAND EXAMINER Lorie Castanon MD LABORATORY Final Result [facility] [address] [place] [address], [place] [phone] * ALT/SGPT (01/06/2021 7:11 AM LAND EXAMINER) ALT 25 16 - 60 U/L 01/06/2021 7:43 AM LAND EXAMINER [facility] 01/06/2021 7:11 AM LAND EXAMINER us Lorie Castanon MD LABORATORY Final Result Performing Organization Address City/[facility]/ZIP Co de Phone Number [facility] [address] [place] [address], [place] [phone] * (ABNORMAL) LIPID PANEL (01/06/2021 7:11 AM LAND EXAMINER) [facility] CHOLESTEROL 200(H) <200.0 MG/DL 01/06/2021 7:43 AM [facility] TRIGLYCERIDES 79 <150 MG/DL 01/06/2021 7:43 AM [facility] HDL 51 >40.0 MG/DL 01/06/2021 7:43 AM [facility] LDL (CALCULATED) 133(H) <100 MG/DL 01/06/2021 7:43 AM [facility] NON HDL CHOLESTEROL 149(H) <130 MG/DL 01/06/2021 7:43 AM [facility] CHOL/HDL RATIO 3.9 0.0 - 4.5 01/06/2021 7:43 AM [facility] VLDL CALCULATION 16 5 - 55 MG/DL 01/06/2021 7:43 AM [facility] LIPID INTERPRETATION 01/06/2021 7:43 AM [facility] Comment: NIH CONCENSUS REPORT RECOMMENDATIONS: [...] ?LDL ? >=160 ?>=130 01/06/2021 7:11 AM LAND EXAMINER Lorie Castanon MD LABORATORY Final Result [facility] [address] [place] [address], * URINALYSIS AUTO DIP (07/21/2020) COLOR (U) YELLOW [address] ([address]), [facility] CLE[facility] [address] ([address]), [place] GLUCOSE (U) NEGATIVE NEGATIVE MG/DL [address] ([address]), [place] BILIRUBIN (U) NEGATIVE NEGATIVE [address] ([address]), [facility] MG/DL (U) NEGATIVE NEGATIVE MG/DL [address] ([address]), [facility] SPE[facility]IFIC GRAVITY (U) >=1.035 1.001 - 1.[address] ([address]), [facility] BLOOD (U) NEGATIVE NEGATIVE [address] ([address]), [facility] U PH 5.0 5.0 - 9.[address] ([address]), [facility] PROTEIN (U) NEGATIVE NEGATIVE mg/dL [address] ([address]), [place] UROBILINOGEN 0.2 0.2 - 1.0 EU/dL = mg/dL [address] ([address]), [place] NITRITES NEGATIVE NEGATIVE MG/DL [address] ([address]), [place] LEUKOCYTES (U) NEGATIVE NEGATIVE [address] ([address]), [place] URINE SPECIMEN OBTAINED BY CLEAN CATCH PROCEDURE / Unknown 07/21/2020 us Lorie Castanon MD URINE ORDERABLES Final Resul t [address] ([address]), [place] [address] [address], documented in this encounter Visit Diagnoses Diagnosis Frequent urination- Primary Urinary frequency Mixed hyperlipidemia BMI 26.0-26.9,adult Body Mass Index 26.0-26.9, adult Frequency of urination Urinary frequency Primary osteoarthritis involving multiple joints RANDY on CPAP Obstructive sleep apnea (adult) (pediatric) Need for immunization against influenza Need for prophylactic vaccination and inoculation against influenza Need for hepatitis C screening test Special screening examination for other specified viral diseases documented in this encounter Care Teams Banking Paralegal Relationship Specialty Start Date End Date Lorie Castanon MD PCP - General INTERNAL MEDICINE 01/15/20 02/09/23 documented as of this encounter
--- OUTSIDE RECORDS SUMMARY | 2024-11-02 08:16 | XMS_ITS | Encounter Summary ---
Author Organization [facility] Address [address] [place] [address]. [place] [address] [place] [address] Care Team Providers Care Hvac Services Professional Name Role Phone Lorie Castanon MD Primary Care Provider [phone] Reason for Visit * Reason Onset Date Comments Medication 11/10/2020 Encounter Details Date Type Department Care Team (Late st Contact Info) Description 11/10/2020 Telephone [facility] Family & Internal Medicine [facility] [address] [place] [address] L[place] Castanon [place] [id number] [place] [address] Medication Social History Tobacco Use Types Packs/Day Years Used Date Smoking Tobacco: Every Day Cigarettes Smokeless Tobacco: Never Alcohol Use Standard Drinks/Week Comments Yes 0 (1 standard drink = 0.6 oz pur e alcohol) Occasionally PHQ-2 Answer Date Recorded PHQ-2 Score 0 01/15/2020 Sex and Gender Information Value Date Recorded Sex Assigned at Not on file Legal Sex Male 9:58 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 Gender Identity Not on file Sexual Orientation Not on file documented as of this encounter Progress Notes * Xi Page RN - 11/10/2020 9:54 AM CST script sent as requested LE BATTERY TECHNICIAN * Marilu Epstein LPN - 11/10/2020 9:33 AM CST Medication and strength: oxybutynin 5 mg 07/21/2020 Dr Melo [facility]: [facility] Call back #: [phone] Last office visit at this office: Last visit with LORIE CASTANON in INTERNAL MEDICINE was on: 07/21/2020 in [facility] Future appointment scheduled: Future Appointments Date Time Provider Department Center 01/13/2021 8:00 AM [id number] 01/18/2021 8:20 AM Lorie Castanon MD [id number] HIGH LE BATTERY TECHNICIAN documented in this encounter Plan of Treatment Upcoming Encounters Date Type Department Care Team (Late st Contact Info) Description 01/27/2025 7:00 AM CDT Office Visit [facility] Family & Internal Medicine [facility] [address] [place] [address] [place] [address] [place], [place] [id number] 10/22/2025 9:15 AM MOBILE BATTERY TECHNICIAN Office Visit [facility] [address] [address] Mily Gan MD [address] [address] documented as of this encounter Visit Diagnoses Diagnosis Frequent urination Urinary frequency documented in this encounter Care Teams Hvac Services Professional Relationship Specialty Start Date End Date Lorie Castanon MD PCP - General INTERNAL MEDICINE 01/15/20 02/09/23 documented as of this encounter
--- OUTSIDE RECORDS SUMMARY | 2024-11-02 08:16 | XMS_ITS | Encounter Summary ---
Author Organization [facility] Address [address] [place] [address]. 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 No / Unsure 07/07/2020 8:15 AM CDT documented as of this encounter [...] by mouth daily. Indications: Nutritional Support 1 amoxicillin 500 MG capsule DNC 0 07/21/20 20 HYDROcodone-chlorph eniramine ER (TUSSIONEX PENNKINETIC ER) 10-8 MG/5ML suspensionIndicatio ns:Cough Take 5 mLs by mouth every 12 (twelve) hours as needed. Indications: Cough Has taken this in the past without problems 100 mL 0 07/21/20 20 meloxicam 15 MG tabletIndications:P rimary osteoarthritis involving multiple joints Take 1 tablet (15 mg total) by mouth daily. 90 tablet 1 0 07/21/20 20 methylPREDNISolone, YANNA, 4 MG tablet FPD 0 07/21/20 20 Misc Natural Products (OSTEO BI-FLEX JOINT SHIELD OR) Take 1 tablet by mouth 2 (two) times daily. 03/24/20 21 pravastatin 40 MG tabletIndications:M ixed hyperlipidemia Take 1 tablet (40 mg total) by mouth nightly at bedtime. 90 tablet 1 0 07/21/20 20 documented as of this encounter Progress Notes * Xi Page RN - 07/08/2020 1:19 PM CDT Pt made aware and v/u documented in this encounter Plan of Treatment Upcoming Encounters Date Type Department Care Team (Late st Contact Info) Description 01/27/2025 7:00 AM CDT Office Visit [facility] Family & Internal Medicine [facility] [address] [place] [address] [place] [address] [place] [address] 10/22/2025 9:15 AM ROOM SERVICE FOOD SERVER Office Visit [facility] [address] [place] [address] Mily Gan MD [facility]. [facility] [address] [place] [address] documented as of this encounter Procedures Procedure Name Priority Date/Time Associated Diagnosis Comments VITAMIN B12 / FOLATE Routine 07/07/2020 8:55 AM CDT Mixed hyperlipidemia TSH W/REFLEX Routine 07/07/2020 8:55 AM CDT Mixed hyperlipidemia PROSTATE SPECIFIC ANTIGEN,SCREENING Routine 07/07/2020 8:55 AM CDT Screening Psa (Prostate Specific Antigen) COMPREHENSIVE METABOLIC PANEL Routine 07/07/2020 8:55 AM CDT Mixed hyperlipidemia LIPID PANEL Routine 07/07/2020 8:55 AM CDT Mixed hyperlipidemia CBC W/DIFF AUTOMATED Routine 07/07/2020 8:55 AM CDT Mixed hyperlipidemia VITAMIN D, 25 OH Routine 07/07/2020 8:55 AM CDT Vitamin D deficiency documented in this encounter Results * PROSTATE SPECIFIC ANTIGEN,SCREENING (07/07/2020 8:55 AM CDT) PSA 0.76 <4.0 NG/ML 07/07/2020 4:50 PM CDT [facility] Comment: Test was performed using the Siemens method. ??Results obtained with other assay methods or kits cannot be used interchangeably with results obtained by the Siemens method. 07/07/2020 8:55 AM CDT us Lorie Chan MD LABORATORY Final Result Performing Organization Address [facility] Co de Phone Number [facility] [address] [place] [address], [place] [phone] * VITAMIN D, 25 OH (07/07/2020 8:55 AM CDT) VITAMIN D 25 HYDROXY S/P/B 68 30 - 100 NG/ML 07/07/2020 4:51 PM CDT [facility] Comment: ? INTERPRETATION ? DEFICIENT ??<20 ? INSUFFICIENT 20-29 ?SUFFICIENT 30-100 07/07/2020 8:55 AM CDT Lorie Chan MD LABORATORY Final Result Performing Organization Address [facility] Co de Phone Number [facility] [address] [place] [address], [place] [phone] * VITAMIN B12 / FOLATE (07/07/2020 8:55 AM CDT) VITAMIN B12 S/P/B 965 193 - 986 PG/ML 07/07/2020 11:41 AM CDT [facility] FOLATE >20.0 8.6 - 58.9 NG/ML 07/07/2020 11:41 AM CDT [facility] 07/07/2020 8:55 AM CDT Lorie Chan MD LABORATORY Final Result Performing Organization Address City/[facility]/ZIP Co de Phone Number [facility] [address] [place] [address], [place] [phone] * TSH W/REFLEX (07/07/2020 8:55 AM CDT) TSH 0.961 0.358 - 3.74 uIU/ML 07/07/2020 11:41 AM CDT [facility] Comment: HIGH DOSES OF BIOTIN MAY INTERFERE WITH THIS TEST RESULT. CORRELATION TO CLINICAL HISTORY AND PRESENTATION RECOMMENDED. FREE T4 NOT INDICATED 07/07/2020 8:55 AM CDT Lorie Chan MD LABORATORY Final Result [facility] [address] [place] [address], * (ABNORMAL) LIPID PANEL (07/07/2020 8:55 AM CDT) CHOLESTEROL 207(H) <200.0 MG/DL 07/07/2020 11:41 AM T [facility] TRIGLYCERIDES 102 <150 MG/DL 07/07/2020 11:41 AM [facility] HDL 54 >40.0 MG/DL 07/07/2020 11:41 AM T [facility] LDL (CALCULATED) 133(H) <100 MG/DL 07/07/2020 11:41 AM T [facility] NON HDL CHOLESTEROL 153(H) <130 MG/DL 07/07/2020 11:41 AM T [facility] CHOL/HDL RATIO 3.8 0.0 - 4.5 07/07/2020 11:41 AM T [facility] VLDL CALCULATION 20 5 - 55 MG/DL 07/07/2020 11:41 AM [facility] LIPID INTERPRETATION 07/07/2020 11:41 AM T [facility] Comment: NIH CONCENSUS REPORT RECOMMENDATIONS: ?ADULT ?CHILD ??LOW RISK: ?CHOLESTEROL ? <200 ? <170 ?TRIGLYCERIDE ?<150 ?--- ?HDL ? >=60 ?--- ?LDL ? <100 ? <110 ??BORDERLINE: ?CHOLESTEROL ? 200-239 ?? 170-199 ?TRIGLYCERIDE ?150-199 ? --- ?HDL ?40-59 ?--- ?LDL ? 100-159 ?? 110-129 ??HIGH RISK: ?CHOLESTEROL ? >=240 ?>=200 ?TRIGLYCERIDE ?>=200 ? --- ?HDL ?<40 ?--- ?LDL ? >=160 ?>=130 07/07/2020 8:55 AM CDT us Lorie Chan MD LABORATORY Final Result Performing Organization Address [facility]/State/ZIP Co de Phone Number [facility] () [facility] [address] [place] [address], * (ABNORMAL) COMPREHENSIVE METABOLIC PANEL (07/07/2020 8:55 AM CDT) [facility] GLUCOSE 102(H) 70 - 99 MG/DL 07/07/2020 11:41 AM [facility] BUN 22(H) 7 - 18 MG/DL 07/07/2020 11:41 AM [facility] CREATININE S/P/B 0.76 0.7 - 1.3 MG/DL 07/07/2020 11:41 AM [facility] SODIUM S/P/B 142 136 - 145 MMOL/L 07/07/2020 11:41 AM [facility] POTASSIUM S/P/B 4.5 3.5 - 5.1 MMOL/L 07/07/2020 11:41 AM [facility] CHLORIDE S/P/B 105 100 - 108 MMOL/L 07/07/2020 11:41 AM [facility] CO2 26.8 21 - 32 MMOL/L 07/07/2020 11:41 AM [facility] CALCIUM S/P/B 8.7 8.5 - 10.1 MG/DL 07/07/2020 11:41 AM [facility] BILIRUBIN TOTAL S/P/B 1.0 0.2 - 1.2 MG/DL 07/07/2020 11:41 AM [facility] TOTAL PROTEIN S/P/B 7.4 6.4 - 8.2 G/DL 07/07/2020 11:41 AM [facility] ALBUMIN S/P/B 3.9 3.4 - 5.0 G/DL 07/07/2020 11:41 AM [facility] AST 19 15 - 37 U/L 07/07/2020 11:41 AM [facility] ALT 27 16 - 60 U/L 07/07/2020 11:41 AM [facility] ALKALINE PHOSPHATASE S/P/B 47(L) 50 - 136 U/L 07/07/2020 11:41 AM CDT [facility] ANION GAP 10.2 5 - 15 MMOL/L 07/07/2020 11:41 AM CDT [facility] BUN CREATININE RATIO 28.9(H) 6 - 26 07/07/2020 11:41 AM CDT [facility] A/G RATIO 1.1 1.0 - 2.0 RATIO 07/07/2020 11:41 AM CDT [facility] EGFR NON-AFR. AMER. >90 >90 ML/MIN/1.7 3 M2 07/07/2020 11:41 AM CDT [facility] EGFR AFR. AMER. >90 >90 ML/MIN/1.7 3 M2 07/07/2020 11:41 AM CDT [facility] Comment: NOTE: eGFR is not calculated for patients <18 years of age. This is an estimated GFR (CKD EPI) and should not be used for calculating drug doses. 07/07/2020 8:55 AM CDT Lorie Chan MD LABORATORY Final Result [facility] [address] [place] [address], * (ABNORMAL) CBC W/DIFF AUTOMATED (07/07/2020 8:55 AM CDT) WBC 4.3(L) 4.4 - 11.0 x10'3/uL 07/07/2020 9:14 AM CDT [facility] RBC 4.37(L) 4.50 - 5.90 x10'6/uL 07/07/2020 9:14 AM CDT [facility] HGB 14.3 14.0 - 17.5 G/DL 07/07/2020 9:14 AM CDT [facility] HCT 41.9 41.5 - 50.4 % 07/07/2020 9:14 AM CDT [facility] MCV 95.9 80.0 - 96.0 FL 07/07/2020 9:14 AM CDT [facility] MCH 32.7(H) 26.5 - 31.4 PG 07/07/2020 9:14 AM CDT [facility] MCHC 34.1 31.9 - 34.8 G/DL 07/07/2020 9:14 AM T [facility] RDW 12.8 12.3 - 14.3 % 07/07/2020 9:14 AM T [facility] PLT 238 151 - 353 x10'3/uL 07/07/2020 9:14 AM T [facility] MPV 10.4 9.7 - 11.9 FL 07/07/2020 9:14 AM T [facility] RBC MORPHOLOGY NORMAL 07/07/2020 9:14 AM T [facility] PLT MORPH. NORMAL 07/07/2020 9:14 AM [facility] WBC MORPHOLOGY NORMAL 07/07/2020 9:14 AM [facility] LYMPHOCYTES % 33.9 15.8 - 45.0 % 07/07/2020 9:14 AM T [facility] NEUTROPHILS % 50.6 42.1 - 71.9 % 07/07/2020 9:14 AM T [facility] MONOCYTES % 12.2 5.7 - 12.5 % 07/07/2020 9:14 AM T [facility] EOSINOPHILS 1.9 0.0 - 5.6 % 07/07/2020 9:14 AM CDT [facility] BASOPHILS 1.2 0.0 - 1.3 % 07/07/2020 9:14 AM CDT [facility] ABS. NEUTROPHILS TOTAL 2.15 1.40 - 6.00 x10'3/uL 07/07/2020 9:14 AM CDT [facility] IMMATURE GRANS % 0.2 0.0 - 0.5 % 07/07/2020 9:14 AM CDT [facility] ABS. LYMPHOCYTES 1.44 0.80 - 4.70 x10'3/uL 07/07/2020 9:14 AM CDT [facility] 07/07/2020 8:55 AM CDT Lorie Chan MD LABORATORY Final Result Performing Organization Address City/State/[facility] Co de Phone Number [facility] [address] [place] [address], documented in this encounter Visit Diagnoses Diagnosis Mixed hyperlipidemia Vitamin D deficiency Unspecified vitamin D deficiency Screening PSA (prostate specific antigen) Special screening for malignant neoplasm of prostate documented in this encounter Care Teams Crm Technical Lead Relationship Specialty Start Date End Date Lorie Chan MD PCP - General INTERNAL MEDICINE 01/15/20 02/09/23 documented as of this encounter
--- OUTSIDE RECORDS SUMMARY | 2024-11-02 08:16 | XMS_ITS | Encounter Summary ---
Author Organization [facility] Address [address] [place] [address]. [place], [place] [address] [place] [address] Care Team Providers Care Carpenter Foreman Name Role Phone Lorie Chan MD Primary Care Provider [phone] Encounter Details Date Type Department Care Team (Latest Contact Info) Description 07/07/2020 Travel Social History Tobacco Use Types Packs/Day Years Used Date Smoking Tobacco: Every Day Cigarettes Smokeless Tobacco: Never Alcohol Use Standard Drinks/Week Comments Yes 0 (1 standard drink = 0.6 oz pur e alcohol) Occasionally PHQ-2 Answer Date Recorded PHQ-2 Score 0 01/15/2020 Sex and Gender Information Value Date Recorded Sex Assigned at Not on file Legal Sex Male 9:58 PM PLANNING AIDE Gender Identity Not on file Sexual Orientation [...] [facility] [address] [place] [address] [place] [address] [place] [address] 10/22/2025 9:15 AM PLANNING AIDE Office Visit [facility] [address] [place] [address] Mily Gan MD [facility] [address] [place] [address] documented as of this encounter Visit Diagnoses Not on filedocumented in this encounter Care Teams Carpenter Foreman Relationship Specialty Start Date End Date Lorie Chan MD PCP - General INTERNAL MEDICINE 01/15/20 02/09/23 documented as of this encounter
--- OUTSIDE RECORDS SUMMARY | 2024-11-02 08:16 | XMS_ITS | Encounter Summary ---
Author Organization [facility] Address [address] [place] [address]. 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 No / Unsure 07/21/2020 10:39 AM CDT documented as of this encounter Plan of Treatment Upcoming Encounters Date Type Department Care Team (Late Contact Info) Description 01/27/2025 7:00 AM CDT Office Visit [facility] Family & Internal Medicine [address] [address] [place] [address] [place] [address] 10/22/2025 9:15 AM TAP BUILDER Office Visit [facility] [address] [place] [address] Mily Gan MD [facility] [address] [place] [address] documented as of this encounter Visit Diagnoses Diagnosis RANDY on CPAP Obstructive sleep apnea (adult) (pediatric) documented in this encounter Care Teams Online Health And Fitness Coach Relationship Specialty Start Date End Date Lorie Chan MD PCP - General INTERNAL MEDICINE 01/15/20 02/09/23 documented as of this encounter
--- OUTSIDE RECORDS SUMMARY | 2024-11-02 08:16 | XMS_ITS | Encounter Summary ---
Author Organization [facility] Address [address] [place] [address]. 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 Gender Identity Not on file Sexual Orientation Not on file documented as of this encounter Plan of Treatment Upcoming Encounters Date Type Department Care Team (Late st Contact Info) Description 01/27/2025 7:00 AM CDT Office Visit [facility] Family & Internal Medicine - [place] [address] [place] [address] [place] [address] [place] [address] 10/22/2025 9:15 AM ESCORT VEHICLE DRIVER Office Visit [facility] [address] Mily Gan MD [place] [place] [address] documented as of this encounter Visit Diagnoses Not on filedocumented in this encounter
--- OUTSIDE RECORDS SUMMARY | 2024-11-02 08:16 | XMS_ITS | Encounter Summary ---
Author Organization [facility] Address [address] [place] [address]. [place] [address] [place] [address] Care Team Providers Care Milk Vendor Name Role Phone Lorie Chan MD Primary Care Provider [phone] Encounter Details Date Type Department Care Team (Latest Contact Info) Description 12/17/2020 Travel Social History Tobacco Use Types Packs/Day Years Used Date Smoking Tobacco: Every Day Cigarettes Smokeless Tobacco: Never Alcohol Use Standard Drinks/Week Comments Yes 0 (1 standard drink = 0.6 oz pur e alcohol) Occasionally PHQ-2 Answer Date Recorded PHQ-2 Score 0 01/15/2020 Sex and Gender Information Value Date Recorded Sex Assigned at Not on file Legal Sex Male 9:58 PM CELLULAR BIOLOGIST Gender Identity Not on file Sexual Orientation Not on file COVID-19 Exposure Response Date Recorded In the last month, have you been in contact with someone who was confirmed or suspected to have Coronavirus / COVID-19? No / Unsure 12/17/2020 3:26 PM CELLULAR BIOLOGIST documented as of this encounter Plan of Treatment Upcoming Encounters Date Type Department Care Team (Late st Contact Info) Description 01/27/2025 7:00 AM CDT Office Visit [facility] Family & Internal Medicine [facility] [address] [place] [phone] [place] [address] [place] [address] 10/22/2025 9:15 AM CELLULAR BIOLOGIST Office Visit [facility] [address] [place] [address] Mily Gan MD [facility] [address] [place] [address] documented as of this encounter Visit Diagnoses Not on filedocumented in this encounter Care Teams Milk Vendor Relationship Specialty Start Date End Date Lorie Chan MD PCP - General INTERNAL MEDICINE 01/15/20 02/09/23 documented as of this encounter
--- OUTSIDE RECORDS SUMMARY | 2024-11-02 08:16 | XMS_ITS | Encounter Summary ---
Author Organization [facility] Address [address] [place] [address]. [place], [place] [address] [place] [address] Care Team Providers Care Fixed Income Trading Vice President Name Role Phone Lorie Chan MD Primary Care Provider Reason for Visit * Reason Onset Date Comments Cough 02/12/2020 Encounter Details Date Type Department Care Team (Late Contact Info) Description 02/12/2020 Telephone [facility] Family & Internal Medicine [address] [address] [place] Chan [place] [phone] [place] [address] Cough Social History Tobacco Use Types Packs/Day Years Used Date Smoking Tobacco: Every Day Cigarettes Smokeless Tobacco: Never Alcohol Use Standard Drinks/Week Comments Yes 0 (1 standard drink = 0.6 oz pur e alcohol) Occasionally PHQ-2 Answer Date Recorded PHQ-2 Score 0 01/15/2020 Sex and Gender Information Value Date Recorded Sex Assigned at Not on file Legal Sex Male 9:58 PM SAGGER PREPARER Gender Identity Not on file Sexual Orientation Not on file documented as of this encounter Plan of Treatment Upcoming Encounters Date Type Department Care Team (Late Contact Info) Description 01/27/2025 7:00 AM CDT Office Visit [facility] Family & Internal [address] [address] [place] [address] [place] [address] 10/22/2025 9:15 AM SAGGER PREPARER Office Visit [facility] [address] [place] [address] Mily Gan MD [facility] [address] [place] [address] documented as of this encounter Visit Diagnoses Diagnosis Cough- Primary documented in this encounter Care Teams Fixed Income Trading Vice President Relationship Specialty Start Date End Date Lorie Chan MD PCP - General INTERNAL MEDICINE 01/15/20 02/09/23 documented as of this encounter
--- OUTSIDE RECORDS SUMMARY | 2024-11-02 08:16 | XMS_ITS | Encounter Summary ---
Author Organization [facility] Address [address] [place] [address]. [place], [place] [address] [place] [address] Care Team Providers Care Atmospheric Scientist Name Role Phone Unavailable Primary Care Provider Unavailabl e Encounter Details Date Type Department Care Team (Latest Contact Info) Description 01/02/2020 Scan HEALTH INFO SRVCS Scanned, Documents Social History Tobacco Use Types Packs/Day Years Used Date Smoking Tobacco: Never Assessed Sex and Gender Information Value Date Recorded Sex Assigned at Not on file Legal Sex Male 9:58 PM PRINTER'S ASSISTANT Gender Identity Not on file Sexual Orientation Not on file documented as of this encounter Plan of Treatment Upcoming Encounters Date Type Department Care Team (Late st Contact Info) Description 01/27/2025 7:00 AM CDT Office Visit [facility] Family & Internal Medicine - [place] [address] [place] [address] [place] [address] [place] [address] 10/22/2025 9:15 AM PRINTER'S ASSISTANT Office Visit [facility] [address] Mily Gan MD [address] [place] [address] documented as of this encounter Visit Diagnoses Not on filedocumented in this encounter
--- OUTSIDE RECORDS SUMMARY | 2024-11-02 08:16 | XMS_ITS | Encounter Summary ---
Author Organization [facility] Address [address] [place] [address]. [place], [place] [address] [place] [address] Care Team Providers Care Performance Test Consultant Name Role Phone Unavailable Primary Care Provider Unavailabl e Encounter Details Date Type Department Care Team (Latest Contact Info) Description 12/02/2019 Scan HEALTH INFO SRVCS Scanned, Documents Social History Tobacco Use Types Packs/Day Years Used Date Smoking Tobacco: Never Assessed Sex and Gender Information Value Date Recorded Sex Assigned at Not on file Legal Sex Male 9:58 PM GUM MAKER Gender Identity Not on file Sexual Orientation Not on file documented as of this encounter Plan of Treatment Upcoming Encounters Date Type Department Care Team (Late st Contact Info) Description 01/27/2025 7:00 AM CDT Office Visit [facility] Group Family & Internal Medicine - [place] [address] [place] [address] [place] [address] [place] [address] 10/22/2025 9:15 AM GUM MAKER Office Visit [facility] [address] Mily Gan MD [address] [place] [address] documented as of this encounter Visit Diagnoses Not on filedocumented in this encounter
--- OUTSIDE RECORDS SUMMARY | 2024-11-02 08:16 | XMS_ITS | Encounter Summary ---
Author Organization [facility] Address [address] [place] [address]. [place], [place] [address] [address] Care Team Providers Care Chiseler Head Name Role Phone Lorie Chan MD Primary Care Provider [phone] Encounter Details Date Type Department Care Team (Latest Contact Info) Description 07/23/2020 Scan HEALTH INFO SRVCS Scanned, Documents Social [...] on file Legal Sex Male 9:58 PM GEOMORPHOLOGIST Gender Identity Not on file Sexual Orientation [...] Family & Internal Medicine [facility] [address] [place] [phone] Ilir Nelson PA [address] [place] [address] 10/22/2025 9:15 AM GEOMORPHOLOGIST Office Visit [facility] [address] [place] [address] Mily Gan MD [facility] [address] [place] [address] documented as of this encounter Visit Diagnoses Not on filedocumented in this encounter Care Teams Chiseler Head Relationship Specialty Start Date End Date Lorie Chan MD PCP - General INTERNAL MEDICINE 01/15/20 02/09/23 documented as of this encounter
--- OUTSIDE RECORDS SUMMARY | 2024-11-02 08:16 | XMS_ITS | Encounter Summary ---
Author Organization [facility] Address [address] [place] [address]. [place], [place] [address] [place] [address] Care Team Providers Care Metal Lather Name Role Phone Lorie Chan MD Primary Care Provider [phone] Encounter Details Date Type Department Care Team (Late Contact Info) Description 12/17/2020 3:55 PM UPHOLSTERY BUNDLER Flu/Imm Clinic [facility] [address] [place] [address] Social History Tobacco Use Types Packs/Day Years Used Date Smoking Tobacco: Every Day Cigarettes Smokeless Tobacco: Never Alcohol Use Standard Drinks/Week Comments Yes 0 (1 standard drink = 0.6 oz pur e alcohol) Occasionally PHQ-2 Answer Date Recorded PHQ-2 Score 0 01/15/2020 Sex and Gender Information Value Date Recorded Sex Assigned at Not on file Legal Sex Male 9:58 PM UPHOLSTERY BUNDLER Gender Identity Not on file Sexual Orientation Not on file COVID-19 Exposure Response Date Recorded In the last month, have you been in contact with someone who was confirmed or suspected to have Coronavirus / COVID-19? No / Unsure 12/17/2020 3:26 PM UPHOLSTERY BUNDLER documented as of this encounter Plan of Treatment Upcoming Encounters Date Type Department Care Team (Late Contact Info) Description 01/27/2025 7:00 AM CDT Office Visit [facility] Medical [facility] Family & Internal Medicine [facility] [address] [place] [address] [place] [address] [place] [address] 10/22/2025 9:15 AM UPHOLSTERY BUNDLER Office Visit [facility] [address] [place] [address] Mily Gan MD [facility] [address] [place] [address] documented as of this encounter Visit Diagnoses Diagnosis Need for prophylactic vaccination against viral disease- Primary Need for prophylactic vaccination and inoculation against other viral diseases documented in this encounter Care Teams Metal Lather Relationship Specialty Start Date End Date Lorie Chan MD PCP - General INTERNAL MEDICINE 01/15/20 02/09/23 documented as of this encounter
--- OUTSIDE RECORDS SUMMARY | 2024-11-02 08:16 | XMS_ITS | Encounter Summary ---
Author Organization [facility] Address [address] [place] [address]. [place], [place] [address] [place] [address] Care Team Providers Care Senior Cyber Intelligence Analyst Name Role Phone Lorie Castanon MD Primary Care Provider [phone] Reason for Visit * Reason Comments New Patient Establishing Care [facility] PCP. Hyperlipidemia needs refill Osteoarthritis Encounter Details Date Type Department Care Team (Latest Contact Info) Description 01/15/2020 2:00 PM CDT [facility] [address] [place] [address] [place]anon [place] [address] [place] [address] New Patient (Establishing Care with PCP. ); Hyperlipidemia (needs refill ); Osteoarthritis Social History Tobacco Use Types Packs/Day Years [...] on file Legal Sex Male 9:58 PM FINISH CARPENTER Gender Identity Not on file Sexual Orientation Not on file documented as of this encounter Last Filed Vital Signs Vital Sign Reading Time Taken Comments Blood Pressure 126/84 01/15/2020 1:39 PM CDT Pulse 82 01/15/2020 1:39 PM CDT Temperature 36.8 ??C (98.3 ??F) 01/15/2020 1:39 PM CD T Respiratory Rate 18 01/15/2020 1:39 PM CDT Oxygen Saturation 97% 01/15/2020 1:39 PM CDT Inhaled Oxygen Concentration - - Weight 75.6 kg (166 lb 9.6 oz) 01/15/2020 1:39 P M CDT Height 167.6 cm (5' 6 ) 01/15/2020 1:39 PM CDT Body Mass Index 26.89 01/15/2020 1:39 PM CDT documented in this encounter Progress Notes * Lorie Castanon MD - 01/15/2020 2:00 PM CDT Reason for Visit: New Patient (Establishing Care with PCP. ); Hyperlipidemia (needs refill ); and Osteoarthritis HPI 64-year-old male here today to establish with a new physician. His father had premature coronary artery disease so they had him on pravastatin 80 aspirin and vitamin E He is previous PCP decided to decrease him from 80 to 40 mg and he is happier with this and needs arefill today. He has arthritis has been taking Osteo Bi-Flex and wonders if there is something better prescription griffin to help him. Recently he has been doing a lot [...] Negative. Eyes: Negative. Respiratory: Negative. Cardiovascular: Negative. Negative for chest pain. Gastrointestinal: Negative. Musculoskeletal: Positive for joint pain. Right elbow and other joints see HPI Skin: Negative. Neurological: Negative. Psychiatric/Behavioral: Negative. Current Outpatient Medications: ??? aspirin 81 MG chewable tablet, Chew 81 mg by mouth daily., Disp: , Rfl: ??? Cholecalciferol (VITAMIN D) 50 MCG (1999 UT) Cap, Take 25 mcg by mouth daily., Disp: , Rfl: ??? meloxicam 15 MG tablet, Take 1 tablet (15 mg total) by mouth daily., Disp: 90 tablet, Rfl: 1 ??? Misc Natural Products (OSTEO BI-FLEX JOINT SHIELD OR), Take 1 tablet by mouth 2 (two) times daily., Disp: , Rfl: ??? pravastatin 40 MG tablet, Take 1 [...] COLONOSCOPY N/A 2013 ??? HERNIA REPAIR Right [facility] ??? HERNIA REPAIR Left [facility] ??? NECK/CHEST PROCEDURE UNLISTED Right [facility], re-built right side of neck. ??? TOTAL KNEE ARTHROPLASTY Bilateral ZANA Partial KR, done @ [facility] Social History Socioeconomic History ??? Marital status: [...] file Gets together: Not on file Attends jew service: Not on file Active member of [...] Status ??? Mother ??? Father Filed Vitals: 01/15/20 1339 BP: 126/84 Pulse: 82 Resp: 18 Temp: 98.3 ??F (36.8 ??C) TempSrc: Oral SpO2: 97% Weight: 75.6 kg (166 lb 9.6 oz) Height: 5' 6 (1.676 m) Body mass index is 26.89 kg/m??. Physical Exam Constitutional: He is oriented [...] Judgment normal. Assessment/PLAN 1. Mixed hyperlipidemia - pravastatin 40 MG tablet; [...] deficiency - VITAMIN D, 25 OH; Future 4. Screening PSA (prostate specific antigen) - PROSTATE SPECIFIC ANTIGEN,SCREENING; Future 5. Need for prophylactic vaccination against Streptococcus pneumoniae (pneumococcus) - PNEUMOCOCCAL VACCINE 6. BMI 26.0-26.9,adult Discussed his risk factors with his father whether or not he wanted to take pravastatin 40 or 80 and he would like to continue the 40 mg dose. Study showed that aspirin is not good for prevention we will give this some consideration. Continue healthy diet regular exercise and maintain normal body weight Osteoarthritis will give him meloxicam and see how he does with this may want to reconsider long-term use with cardiac risk factors. Right elbow pain avoid overuse may try a tennis elbow brace and the nonsteroidal to see how this improves if not follow-up. Recheck labs in 6 months before follow-up Update second pneumonia vaccine. He is up-to-date on everything else and his last colonoscopy was 2013 in [place] which was normal we will see if we can obtain that report. Follow up FU 6 MONTHS LORIE CASTANON MD 01/15/2020 5:44 PM documented in this encounter Plan of Treatment Upcoming Encounters Date Type Department Care Team (Late st Contact Info) Description 01/27/2025 7:00 AM CDT [facility] [address] [place] [address] [place] [address] [place], [place] [id number] 10/22/2025 9:15 AM FINISH CARPENTER Office Visit [facility] [address] Mily Gan MD [facility]. [address] [address] documented as of this encounter Results * PROSTATE SPECIFIC ANTIGEN,SCREENING (07/07/2020 8:55 AM CDT) PSA 0.76 <4.0 NG/ML 07/07/2020 4:50 PM CDT [facility] Comment: Test was performed using the Siemens method. ??Results obtained with other assay methods or kits cannot be used interchangeably with results obtained by the Siemens method. 07/07/2020 8:5 5 AM CDT us Lorie Castanon MD LABORATORY Final Result Performing Organization Address [facility] de Phone Number [facility] [address] [place] [address], * VITAMIN D, 25 OH (07/07/2020 8:55 AM CDT) VITAMIN D 25 HYDROXY S/P/B 68 30 - 100 NG/ML 07/07/2020 4:51 PM CDT [facility] Comment: ? INTERPRETATION ? DEFICIENT ??<20 ? INSUFFICIENT 20-29 ?SUFFICIENT 30-100 07/07/2020 8:55 AM CDT us Lorie Castanon MD LABORATORY Final Result Performing Organization Address [facility] de Phone Number [facility] [address] [place] [address], * VITAMIN B12 / FOLATE (07/07/2020 8:55 AM CDT) VITAMIN B12 S/P/B 965 193 - 986 PG/ML 07/07/2020 11:41 AM CDT [facility] FOLATE >20.0 8.6 - 58.9 NG/ML 07/07/2020 11:41 AM CDT [facility] 07/07/2020 8:55 AM CDT Lorie Castanon MD LABORATORY Final Result [facility] [address] [place] [address], [place] [phone] * TSH W/REFLEX (07/07/2020 8:55 AM CDT) TSH 0.961 0.358 - 3.74 uIU/ML 07/07/2020 11:41 AM CDT [facility] Comment: HIGH DOSES OF BIOTIN MAY INTERFERE WITH THIS TEST RESULT. CORRELATION TO CLINICAL HISTORY AND PRESENTATION RECOMMENDED. FREE T4 NOT INDICATED 07/07/2020 8:55 AM CDT Lorie Castanon MD LABORATORY Final Result Performing Organization Address [facility]/ZIP Co de Phone Number [facility] [address] [place] [address], [place] [phone] * (ABNORMAL) LIPID PANEL (07/07/2020 8:55 AM CDT) CHOLESTEROL 207(H) <200.0 MG/DL 07/07/2020 11:41 AM CDT [facility] TRIGLYCERIDES 102 <150 MG/DL 07/07/2020 11:41 AM CDT [facility] HDL 54 >40.0 MG/DL 07/07/2020 11:41 AM CDT [facility] LDL (CALCULATED) 133(H) <100 MG/DL 07/07/2020 11:41 AM CDT [facility] NON HDL CHOLESTEROL 153(H) <130 MG/DL 07/07/2020 11:41 AM CDT [facility] CHOL/HDL RATIO 3.8 0.0 - 4.5 07/07/2020 11:41 AM CDT [facility] VLDL CALCULATION 20 5 - 55 MG/DL 07/07/2020 11:41 AM CDT [facility] LIPID INTERPRETATION 07/07/2020 11:41 AM CDT [facility] Comment: NIH CONCENSUS REPORT [...] ?>=130 07/07/2020 8:55 AM CDT us Lorie Castanon MD LABORATORY Final Result [facility] [address] [place] [address], [place] [phone] * (ABNORMAL) COMPREHENSIVE METABOLIC PANEL (07/07/2020 8:55 AM CDT) GLUCOSE 102(H) 70 - 99 MG/DL 07/07/2020 11:41 AM CDT [facility] BUN 22(H) 7 - 18 MG/DL 07/07/2020 11:41 AM CDT [facility] CREATININE S/P/B 0.76 0.7 - 1.3 MG/DL 07/07/2020 11:41 AM CDT [facility] SODIUM S/P/B 142 136 - 145 MMOL/L 07/07/2020 11:41 AM CDT [facility] POTASSIUM S/P/B 4.5 3.5 - 5.1 MMOL/L 07/07/2020 11:41 AM CDT [facility] CHLORIDE S/P/B 105 100 - 108 MMOL/L 07/07/2020 11:41 AM CDT [facility] CO2 26.8 21 - 32 MMOL/L 07/07/2020 11:41 AM T [facility] CALCIUM S/P/B 8.7 8.5 - 10.1 MG/DL 07/07/2020 11:41 AM CDT [facility] BILIRUBIN TOTAL S/P/B 1.0 0.2 - 1.2 MG/DL 07/07/2020 11:41 AM T [facility] TOTAL PROTEIN S/P/B 7.4 6.4 - 8.2 G/DL 07/07/2020 11:41 AM CDT [facility] ALBUMIN S/P/B 3.9 3.4 - 5.0 G/DL 07/07/2020 11:41 AM CDT [facility] AST 19 15 - 37 U/L 07/07/2020 11:41 AM T [facility] ALT 27 16 - 60 U/L 07/07/2020 11:41 AM CDT [facility] ALKALINE PHOSPHATASE S/P/B 47(L) 50 - 136 U/L 07/07/2020 11:41 AM CDT [facility] ANION GAP 10.2 5 - 15 MMOL/L 07/07/2020 11:41 AM T [facility] BUN CREATININE RATIO 28.9(H) 6 - 26 07/07/2020 11:41 AM T [facility] A/G RATIO 1.1 1.0 - 2.0 RATIO 07/07/2020 11:41 AM T [facility] EGFR NON-AFR. AMER. >90 >90 ML/MIN/1.7 3 M2 07/07/2020 11:41 AM T [facility] EGFR AFR. AMER. >90 >90 ML/MIN/1.7 3 M2 07/07/2020 11:41 AM T [facility] Comment: NOTE: eGFR is not calculated for patients <18 years of age. This is an estimated GFR (CKD EPI) and should not be used for calculating drug doses. 07/07/2020 8:55 AM CDT us Lorie Castanon MD LABORATORY Final Result [facility] [address] [place] [address], [place] [phone] * (ABNORMAL) CBC W/DIFF AUTOMATED (07/07/2020 8:55 AM CDT) WBC 4.3(L) 4.4 - 11.0 x10'3/uL 07/07/2020 9:14 AM CDT [facility] RBC 4.37(L) 4.50 - 5.90 x10'6/uL 07/07/2020 9:14 AM T [facility] HGB 14.3 14.0 - 17.5 G/DL 07/07/2020 9:14 AM T [facility] HCT 41.9 41.5 - 50.4 % 07/07/2020 9:14 AM T [facility] MCV 95.9 80.0 - 96.0 FL 07/07/2020 9:14 AM [facility] MCH 32.7(H) 26.5 - 31.4 PG 07/07/2020 9:14 AM T [facility] MCHC 34.1 31.9 - 34.8 G/DL 07/07/2020 9:14 AM [facility] RDW 12.8 12.3 - 14.3 % 07/07/2020 9:14 AM [facility] PLT 238 151 - 353 x10'3/uL 07/07/2020 9:14 AM [facility] MPV 10.4 9.7 - 11.9 FL 07/07/2020 9:14 AM [facility] RBC MORPHOLOGY NORMAL 07/07/2020 9:14 AM T [facility] PLT MORPH. NORMAL 07/07/2020 9:14 AM T [facility] WBC MORPHOLOGY NORMAL 07/07/2020 9:14 AM [facility] LYMPHOCYTES % 33.9 15.8 - 45.0 % 07/07/2020 9:14 AM T [facility] NEUTROPHILS % 50.6 42.1 - 71.9 % 07/07/2020 9:14 AM CDT [facility] MONOCYTES % 12.2 5.7 - 12.5 % 07/07/2020 9:14 AM CDT [facility] EOSINOPHILS 1.9 0.0 - 5.6 % 07/07/2020 9:14 AM CDT [facility] BASOPHILS 1.2 0.0 - 1.3 % 07/07/2020 9:14 AM CDT [facility] ABS. NEUTROPHILS TOTAL 2.15 1.40 - 6.00 x10'3/uL 07/07/2020 9:14 AM CDT [facility] IMMATURE GRANS % 0.2 0.0 - 0.5 % 07/07/2020 9:14 AM CDT [facility] ABS. LYMPHOCYTES 1.44 0.80 - 4.70 x10'3/uL 07/07/2020 9:14 AM CDT [facility] 07/07/2020 8:55 AM CDT Lorie Castanon MD LABORATORY Final Result [facility] [address] [place] [address], documented in this encounter Visit Diagnoses Diagnosis Mixed hyperlipidemia- Primary Primary osteoarthritis involving multiple joints Vitamin D deficiency Unspecified vitamin D deficiency Screening PSA (prostate specific antigen) Special screening for malignant neoplasm of prostate Need for prophylactic vaccination against Streptococcus pneumoniae (pneumococcus) Need for prophylactic vaccination against streptococcus pneumoniae (pneumococcus) BMI 26.0-26.9,adult Body Mass Index 26.0-26.9, adult documented in this encounter Care Teams Senior Cyber Intelligence Analyst Relationship Specialty Start Date End Date Lorie Castanon MD PCP - General INTERNAL MEDICINE 01/15/20 02/09/23 documented as of this encounter
--- OUTSIDE RECORDS SUMMARY | 2024-11-02 08:16 | XMS_ITS | Encounter Summary ---
Author Organization [facility] Address [address] [place] [address]. [place], [place] [address] [place] [address] Care Team Providers Care Senior Administrative Assistant Name Role Phone Lorie Chan MD Primary Care Provider [phone] Encounter Details Date Type Department Care Team (Latest Contact Info) Description 07/21/2020 Travel Social History Tobacco Use Types Packs/Day Years Used Date Smoking Tobacco: Every Day Cigarettes Smokeless Tobacco: Never Alcohol Use Standard Drinks/Week Comments Yes 0 (1 standard drink = 0.6 oz pur e alcohol) Occasionally PHQ-2 Answer Date Recorded PHQ-2 Score 0 01/15/2020 Sex and Gender Information Value Date Recorded Sex Assigned at Not on file Legal Sex Male 9: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 MACHINE 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 Gender Identity Not on file Sexual [...] Group Family & Internal Medicine [facility] [address] [place] [address] [place] [address] [place] [address] 10/22/2025 9:15 AM WET MACHINE CUTTER Office Visit [facility] [address] [place] [address] Mily Gan MD [facility] [address] [place] [address] documented as of this encounter Visit Diagnoses Not on filedocumented in this encounter Care Teams Senior Administrative Assistant Relationship Specialty Start Date End Date Lorie Chan MD PCP - General INTERNAL MEDICINE 01/15/20 02/09/23 documented as of this encounter
--- OUTSIDE RECORDS SUMMARY | 2024-11-02 08:16 | XMS_ITS | Encounter Summary ---
Author Organization [facility] Address [address] [place] [address]. [place], [place] [address] [place] [address] Care Team Providers Care Family Educator Name Role Phone Lorie Chan MD Primary Care Provider [phone] Encounter Details Date Type Department Care Team (Latest Contact Info) Description 01/15/2020 Travel Social History Tobacco Use Types Packs/Day Years Used Date Smoking Tobacco: Every Day Cigarettes Smokeless Tobacco: Never Alcohol Use Standard Drinks/Week Comments Yes 0 (1 standard drink = 0.6 oz pur e alcohol) Occasionally PHQ-2 Answer Date Recorded PHQ-2 Score 0 01/15/2020 Sex and Gender Information Value Date Recorded Sex Assigned at Not on file Legal Sex Male 9:58 PM SPEECH LANGUAGE SPECIALIST Gender Identity Not on file Sexual Orientation Not on file documented as of this encounter Plan of Treatment Upcoming Encounters Date Type Department Care Team (Late st Contact Info) Description 01/27/2025 7:00 AM CDT Office Visit [facility] Family & Internal Medicine [address] [address] Ilir Nelson PA [address] [place] [address] 10/22/2025 9:15 AM SPEECH LANGUAGE SPECIALIST Office Visit [facility] [address] Mily Gan MD [facility] [address] [place] [address] documented as of this encounter Visit Diagnoses Not on filedocumented in this encounter Care Teams Family Educator Relationship Specialty Start Date End Date Lorie Chan MD PCP - General INTERNAL MEDICINE 01/15/20 02/09/23 documented as of this encounter
--- OUTSIDE RECORDS SUMMARY | 2024-11-02 08:16 | XMS_ITS | Encounter Summary ---
Author Organization [facility] Address [address] [place] [address]. [place] [address] [place] [address] Care Team Providers Care Solar Sales Assessor Name Role Phone Lorie Chan MD Primary Care Provider [phone] Reason for Visit * Reason Comments Lab (SCAN) Encounter Details Date Type Department Care Team (Latest Contact Info) Description 11/25/2019 Scan HEALTH INFO SRVCS Scanned, Documents Lab (SCAN) Social History Tobacco Use Types Packs/Day Years Used Date Smoking Tobacco: Never Assessed PHQ-2 Answer Date Recorded PHQ-2 Score 0 01/15/2020 Sex and Gender Information Value Date Recorded Sex Assigned at Not on file Legal Sex Male 9:58 PM CERAMIC MAKER DEMONSTRATOR Gender Identity Not on file Sexual Orientation Not on file documented as of this encounter Plan of Treatment Upcoming Encounters Date Type Department Care Team (Late st Contact Info) Description 01/27/2025 7:00 AM CDT Office Visit [facility] Family & Internal Medicine - [address] [address] Ilir Nelson PA [address] [place] [address] 10/22/2025 9:15 AM CERAMIC MAKER DEMONSTRATOR Office Visit [facility] [address] Mily Gan MD [facility] [address] [place] [address] documented as of this encounter Procedures Procedure Name Priority Date/Time Associated Diagnosis Comments OUTSIDE LAB (SCAN ORDER) Routine 11/25/2019 documented in this encounter Results * OUTSIDE LAB (11/25/2019) 11/25/2019 us Documents Scanned SCANNING Edited Result - Final [facility] ONBASE documented in this encounter Visit Diagnoses Not on filedocumented in this encounter Care Teams Solar Sales Assessor Relationship Specialty Start Date End Date Lorie Chan MD PCP - General INTERNAL MEDICINE 01/15/20 02/09/23 documented as of this encounter
--- OUTSIDE RECORDS SUMMARY | 2024-11-02 08:16 | XMS_ITS | Encounter Summary ---
Author Organization [facility] Address [address] [place] [address]. [place], [place] [address] [place] [address] Care Team Providers Care Chart Clerk Name Role Phone Unavailable Primary Care Provider Unavailabl e Encounter Details Date Type Department Care Team (Latest Contact Info) Description 09/25/2019 Scan HEALTH INFO SRVCS Scanned, Documents Social History Tobacco Use Types Packs/Day Years Used Date Smoking Tobacco: Never Assessed Sex and Gender Information Value Date Recorded Sex Assigned at Not on file Legal Sex Male 9:58 PM SHOT TUBE MACHINE TENDER Gender Identity Not on file Sexual Orientation Not on file documented as of this encounter Plan of Treatment Upcoming Encounters Date Type Department Care Team (Late st Contact Info) Description 01/27/2025 7:00 AM CDT Office Visit [facility] Medical Group Family & Internal Medicine - [place] [address] [place] [address] [place] [address] [place] [address] 10/22/2025 9:15 AM SHOT TUBE MACHINE TENDER Office Visit [facility] [address] Mily Gan MD [place] [address] [place] [address] documented as of this encounter Visit Diagnoses Not on filedocumented in this encounter
--- OUTSIDE RECORDS SUMMARY | 2024-11-02 08:16 | XMS_ITS | Encounter Summary ---
Author Organization [facility] Address [address] [place] [address]. [place], [place] [address] [place] [address] Care Team Providers Care Vehicle Inspector Name Role Phone Lorie Chan MD Primary Care Provider [phone] Encounter Details Date Type Department Care Team (Late Contact Info) Description 07/21/2020 Orders Only [facility] Family & Internal Medicine [address] [address] Zhanna Dowd MA Social History Tobacco Use Types Packs/Day Years Used Date Smoking Tobacco: Every Day Cigarettes Smokeless Tobacco: Never Alcohol Use Standard Drinks/Week Comments Yes 0 (1 standard drink = 0.6 oz pur e alcohol) Occasionally PHQ-2 Answer Date Recorded PHQ-2 Score 0 01/15/2020 Sex and Gender Information Value Date Recorded Sex Assigned at Not on file Legal Sex Male 9:58 PM CUSTODIAL WORKER Gender Identity Not on file Sexual [...] Description 01/27/2025 7:00 AM CDT Office Visit [facility] Family & Internal Medicine [address] [address] [place] [address] [place] [address] 10/22/2025 9:15 AM CUSTODIAL WORKER Office Visit [facility] [address] [place] [address] Mily Gan MD [facility] [address] [place] [address] documented as of this encounter Visit Diagnoses Not on filedocumented in this encounter Care Teams Vehicle Inspector Relationship Specialty Start Date End Date Lorie Chan MD PCP - General INTERNAL MEDICINE 01/15/20 02/09/23 documented as of this encounter
--- OUTSIDE RECORDS SUMMARY | 2024-11-02 08:16 | XMS_ITS | Encounter Summary ---
Author Organization [facility] Address [address] [place] [address]. [place], [place] [address] [place] [address] Care Team Providers Care Qc Chemist Name Role Phone Unavailable Primary Care Provider Unavailabl e Encounter Details Date Type Department Care Team (Latest Contact Info) Description 01/01/2020 Scan HEALTH INFO SRVCS Scanned, Documents Social History Tobacco Use Types Packs/Day Years Used Date Smoking Tobacco: Never Assessed Sex and Gender Information Value Date Recorded Sex Assigned at Not on file Legal Sex Male 9:58 PM MARKET RISK SPECIALIST Gender Identity Not on file Sexual Orientation Not on file documented as of this encounter Plan of Treatment Upcoming Encounters Date Type Department Care Team (Late st Contact Info) Description 01/27/2025 7:00 AM CDT Office Visit [facility] Medical Group Family & Internal Medicine - [place] [address] [place] [phone] [place] [address] [place] [address] 10/22/2025 9:15 AM MARKET RISK SPECIALIST Office Visit [facility] [phone] Mily Gan MD [address] [place] [address] documented as of this encounter Visit Diagnoses Not on filedocumented in this encounter
--- OUTSIDE RECORDS SUMMARY | 2024-11-02 08:17 | XMS_ITS | Encounter Summary ---
Author Organization [facility] Address [address] [place] [address]. [place], [place] [address] [place] [address] Care Team Providers Care Hand Molder And Caster Name Role Phone Lorei Chan MD Primary Care Provider [phone] Moraima Toledo RN Unavailable [phone] Moraima Toledo RN Unavailable [phone] Candis Bee NP Primary Care Provider [phone] Ilir Nelson Primary Care Provider [phone] Encounter Details Date Type Department Care Team (Late st Contact Info) Description 04/13/[address] Con[facility] [address] [place], [place] [id number] , Generic Conversion, Social History Tobacco Use Types Packs/Day Years Used Date Smoking Tobacco: Never Assessed Sex and Gender Information Value Date Recorded Sex Assigned at Not on file Legal Sex Male 9:58 PM WARDROBE CUSTODIAN Gender Identity Not on file Sexual Orientation Not on file documented as of this encounter Plan of Treatment Upcoming Encounters Date Type Department Care Team (Late st Contact Info) Description 01/27/2025 7:00 AM CDT Office Visit [facility] Medical Group Family & Internal Medicine [address] [address] Ilir Nelson PA [address] [place] [address] 10/22/2025 9:15 AM WARDROBE CUSTODIAN Office Visit [facility] [phone] Mily Gan MD [facility] [address] [place], [place] [address] documented as of this encounter Visit Diagnoses Not on filedocumented in this encounter Additional Health Concerns Infection Onset Date Last Indicated Resolved Time COVID-19 Rule Out 03/07/2021 03/07/2021 03/08/2021 2:56 PM CDT documented as of this encounter Care Teams Hand Molder And Caster Relationship Specialty Start Date End Date Lorie Chan MD PCP - General INTERNAL MEDICINE 01/15/20 02/09/23 [place] [address] [facility], [address] [place] [address] PCP - General Nurse Practitioner Family 02/10/23 01/05/24 [place] [address] [place] [address] PCP - General Physician Quality Nurse Medical 01/06/24 Moraima Toledo, RN [address] [place] [address] Meal Cooker (Ambulatory) REGISTERED NURSE 03/19/21 03/30/21 Moraima Toledo RN [address] [place] [address] Meal Cooker (Ambulatory) REGISTERED NURSE 09/23/21 10/18/21 documented as of this encounter
--- OUTSIDE RECORDS SUMMARY | 2024-11-02 08:17 | XMS_ITS | Encounter Summary ---
Author Organization [facility] Address [address] [place] [address]. [place], [place] [address] [place] [address] Care Team Providers Care Glass Blower Name Role Phone Unavailable Primary Care Provider Unavailabl e Encounter Details Date Type Department Care Team (Latest Contact Info) Description 10/19/2016 Scan HEALTH INFO SRVCS Scanned, Documents Social History Tobacco Use Types Packs/Day Years Used Date Smoking Tobacco: Never Assessed Sex and Gender Information Value Date Recorded Sex Assigned at Not on file Legal Sex Male 9:58 PM REELING AND TUBING MACHINE OPERATOR Gender Identity Not on file Sexual Orientation Not on file documented as of this encounter Plan of Treatment Upcoming Encounters Date Type Department Care Team (Late st Contact Info) Description 01/27/2025 7:00 AM CDT Office Visit [facility] Medical Group Family & Internal Medicine - [place] [address] [place] [address] [place]ir Nelson [place] [address] [place] [address] 10/22/2025 9:15 AM REELING AND TUBING MACHINE OPERATOR Office Visit [facility]-[address] [phone] Mily Gan MD [address] [place] [address] documented as of this encounter Visit Diagnoses Not on filedocumented in this encounter
--- OUTSIDE RECORDS SUMMARY | 2024-11-02 08:17 | XMS_ITS | Encounter Summary ---
Author Organization [facility] Address [address] [place] [address]. [place], [place] [address] [place] [address] Care Team Providers Care Retail Merchandising Coordinator Name Role Phone Unavailable Primary Care Provider Unavailabl e Encounter Details Date Type Department Care Team (Late st Contact Info) Description 12/20/2016 Abstract [facility] [address] [place], [place] [address] Ria Joiner MD [address] [id number] Social History Tobacco Use Types Packs/Day Years Used Date Smoking Tobacco: Never Assessed Sex and Gender Information Value Date Recorded Sex Assigned at Not on file Legal Sex Male 9:58 PM COLOR WORKER Gender Identity Not on file Sexual Orientation Not on file documented as of this encounter Plan of Treatment Upcoming Encounters Date Type Department Care Team (Late st Contact Info) Description 01/27/2025 7:00 AM CDT Office Visit [facility] Medical Group Family & Internal Medicine [address] [address] Ilir Nelson PA [address] [place] [address] 10/22/2025 9:15 AM COLOR WORKER Office Visit [facility] [address] [phone] Mily Gan MD [address] [address] documented as of this encounter Visit Diagnoses Diagnosis Encounter for preprocedural laboratory examination Pre-procedural laboratory examination documented in this encounter
--- OUTSIDE RECORDS SUMMARY | 2024-11-02 08:17 | XMS_ITS | Encounter Summary ---
Author Organization [facility] Address [address] [place] [address]. [place] [address] [place] [address] Care Team Providers Care Senior Sales Consultant Name Role Phone Unavailable Primary Care Provider Unavailabl e Reason for Visit * Reason Comments Lab (SCAN) VITAMIN B12 Encounter Details Date Type Department Care Team (Late st Contact Info) Description 02/15/2019 Scan HEALTH INFO SRVCS Scanned, Documents Lab (SCAN) (VITAMIN B12) Social History Tobacco Use Types Packs/Day Years Used Date Smoking Tobacco: Never Assessed Sex and Gender Information Value Date Recorded Sex Assigned at Not on file Legal Sex Male 9:58 PM GEOTECHNICAL ENGINEER Gender Identity Not on file Sexual Orientation Not on file documented as of this encounter Plan of Treatment Upcoming Encounters Date Type Department Care Team (Late st Contact Info) Description 01/27/2025 7:00 AM CDT Office Visit [facility] Medical Group Family & Internal Medicine - [place] [address] [place] [phone] [place] [address] [place], [place] [address] 10/22/2025 9:15 AM GEOTECHNICAL ENGINEER Office Visit [facility]-[address] [phone] Mily Gan MD [address] [place] [address] documented as of this encounter Procedures Procedure Name Priority Date/Time Associated Diagnosis Comments OUTSIDE LAB (SCAN ORDER) Routine 02/15/2019 OUTSIDE LAB (SCAN ORDER) Routine 02/15/2019 OUTSIDE LAB (SCAN ORDER) Routine 02/15/2019 OUTSIDE LAB (SCAN ORDER) Routine 02/15/2019 OUTSIDE LAB (SCAN ORDER) Routine 02/15/2019 OUTSIDE LAB (SCAN ORDER) Routine 02/15/2019 OUTSIDE LAB (SCAN ORDER) Routine 02/15/2019 documented in this encounter Results * OUTSIDE LAB (02/15/2019) 02/15/2019 us Documents Scanned SCANNING Edited Result - Final Performing Organization Address [facility] Co de Phone Number [address] [address] * OUTSIDE LAB (02/15/2019) URIC ACID 6.3 4.0 - 8.0 mg/dL [facility] 02/15/2019 us Documents Scanned SCANNING Edited Result - Final Performing Organization Address [facility] Co de Phone Number [address] [address] * OUTSIDE LAB (02/15/2019) TSH 1.14 0.40 - 4.50 [facility] 02/15/2019 us Documents Scanned SCANNING Edited Result - Final Performing Organization Address [facility]/ZIP Co de Phone Number [address] [address] * OUTSIDE LAB (02/15/2019) PSA 0.6 <4.0 ng/mL [facility] 02/15/2019 us Documents Scanned SCANNING Edited Result - Final Performing Organization Address [facility]/ZIP Co de Phone Number [facility] [address] [address] * OUTSIDE LAB (02/15/2019) 02/15/2019 us Documents Scanned SCANNING Edited Result - Final Performing Organization Address [facility]/ZIP Co de Phone Number [address] [address] * OUTSIDE LAB (02/15/2019) 02/15/2019 us Documents Scanned SCANNING Edited Result - Final Performing Organization Address [facility]/ZIP Co de Phone Number [facility] [address] * OUTSIDE LAB (02/15/2019) 02/15/2019 us Documents Scanned SCANNING Edited Result - Final Performing Organization Address [facility] Co de Phone Number [address] [address] documented in this encounter Visit Diagnoses Not on filedocumented in this encounter
--- OUTSIDE RECORDS SUMMARY | 2024-11-02 08:17 | XMS_ITS | Encounter Summary ---
Author Organization [facility] Address [address] [place] [address]. [place], [place] [address] [place] [address] Care Team Providers Care Refrigerator Car Icer Name Role Phone Unavailable Primary Care Provider Unavailabl e Encounter Details Date Type Department Care Team (Latest Contact Info) Description 11/08/2018 Scan HEALTH INFO SRVCS Scanned, Documents Social History Tobacco Use Types Packs/Day Years Used Date Smoking Tobacco: Never Assessed Sex and Gender Information Value Date Recorded Sex Assigned at Not on file Legal Sex Male 9:58 PM BUTADIENE CONVERTER UTILITY OPERATOR Gender Identity Not on file Sexual Orientation Not on file documented as of this encounter Plan of Treatment Upcoming Encounters Date Type Department Care Team (Late st Contact Info) Description 01/27/2025 7:00 AM CDT Office Visit [facility] Medical Group Family & Internal Medicine - [place] [address] [place] [phone] [place] [address] [place] [address] 10/22/2025 9:15 AM BUTADIENE CONVERTER UTILITY OPERATOR Office Visit [facility]-[address] [phone] Mily Gan MD [address] [place] [address] documented as of this encounter Visit Diagnoses Not on filedocumented in this encounter
--- OUTSIDE RECORDS SUMMARY | 2024-11-02 08:17 | XMS_ITS | Encounter Summary ---
Author Organization [facility] Address [address] [place] [address]. [place] [address] [place] [address] Care Team Providers Care Mock Up Maker Name Role Phone Unavailable Primary Care Provider Unavailabl e Encounter Details Date Type Department Care Team (Late st Contact Info) Description 12/20/[address] [address] [place], [place] [address] Ria Joiner MD [address] 162441 Social History Tobacco Use Types Packs/Day Years Used Date Smoking Tobacco: Never Assessed Sex and Gender Information Value Date Recorded Sex Assigned at Not on file Legal Sex Male 9:58 PM FOREST ECOLOGIST Gender Identity Not on file Sexual Orientation Not on file documented as of this encounter Plan of Treatment Upcoming Encounters Date Type Department Care Team (Late st Contact Info) Description 01/27/2025 7:00 AM CDT Office Visit [facility] Medical Group Family & Internal Medicine [address] [phone] Ilir Nelson PA [address] [place] [address] 10/22/2025 9:15 AM FOREST ECOLOGIST Office Visit [facility] [address] [phone] Mily Gan MD [address] [address] documented as of this encounter Visit Diagnoses Diagnosis Primary osteoarthritis of left knee Primary localized osteoarthrosis, lower leg documented in this encounter
--- OUTSIDE RECORDS SUMMARY | 2024-11-02 08:17 | XMS_ITS | Encounter Summary ---
Author Organization [facility] Address [address] [place] [address]. [place], [place] [address] [place] [address] Care Team Providers Care Timber Spotter Name Role Phone Unavailable Primary Care Provider Unavailabl e Encounter Details Date Type Department Care Team (Latest Contact Info) Description 10/16/2015 Scan HEALTH INFO SRVCS Scanned, Documents Social History Tobacco Use Types Packs/Day Years Used Date Smoking Tobacco: Never Assessed Sex and Gender Information Value Date Recorded Sex Assigned at Not on file Legal Sex Male 9:58 PM SEBD TEACHER Gender Identity Not on file Sexual Orientation Not on file documented as of this encounter Plan of Treatment Upcoming Encounters Date Type Department Care Team (Late st Contact Info) Description 01/27/2025 7:00 AM CDT Office Visit [facility] Family & Internal Medicine - [place] [address] [place] [address] [place] [address] [place] [address] 10/22/2025 9:15 AM SEBD TEACHER Office Visit [facility]-[address] [phone] Mily Gan MD [address] [place] [address] documented as of this encounter Visit Diagnoses Not on filedocumented in this encounter
--- OUTSIDE RECORDS SUMMARY | 2024-11-02 08:17 | XMS_ITS | Encounter Summary ---
Author Organization [facility] Address [address] [place] [address]. [place], [place] [address] [place] [address] Care Team Providers Care Customer Sales Consultant Name Role Phone Unavailable Primary Care Provider Unavailabl e Reason for Visit * Reason Comments ECG (SCAN) Encounter Details Date Type Department Care Team (Latest Contact Info) Description 09/20/2019 Scan HEALTH INFO SRVCS Scanned, Documents ECG (SCAN) Social History Tobacco Use Types Packs/Day Years Used Date Smoking Tobacco: Never Assessed Sex and Gender Information Value Date Recorded Sex Assigned at Not on file Legal Sex Male 9:58 PM PANEL LAY UP WORKER Gender Identity Not on file Sexual Orientation Not on file documented as of this encounter Plan of Treatment Upcoming Encounters Date Type Department Care Team (Late st Contact Info) Description 01/27/2025 7:00 AM CDT Office Visit [facility] Medical Group Family & Internal Medicine [facility] [address] [place] [address] [place] [address] [place], [place] [phone] 10/22/2025 9:15 AM PANEL LAY UP WORKER Office Visit [facility] [phone] Mily Gan MD [address] [address] documented as of this encounter Procedures Procedure Name Priority Date/Time Associated Diagnosis Comments ECG GENERIC (SCAN ORDER) Routine 09/20/2019 documented in this encounter Results * ECG (09/20/2019) us Documents Scanned SCANNING Final Result [facility] [address] [address] documented in this encounter Visit Diagnoses Not on filedocumented in this encounter
--- OUTSIDE RECORDS SUMMARY | 2024-11-02 08:17 | XMS_ITS | Encounter Summary ---
Author Organization [facility] Address [address] [place] [address]. [place] [address] [place] [address] Care Team Providers Care Buffer Inflated Pad Name Role Phone Unavailable Primary Care Provider Unavailabl e Reason for Visit * Reason Comments Lab (SCAN) URIC ACID BLOOD Encounter Details Date Type Department Care Team (Late Contact Info) Description 11/27/2018 Scan HEALTH INFO SRVCS Scanned, Documents Lab (SCAN) (URIC ACID BLOOD ) Social History Tobacco Use Types Packs/Day Years Used Date Smoking Tobacco: Never Assessed Sex and Gender Information Value Date Recorded Sex Assigned at Not on file Legal Sex Male 9:58 PM MANUFACTURING ELECTRICIAN Gender Identity Not on file Sexual Orientation Not on file documented as of this encounter Plan of Treatment Upcoming Encounters Date Type Department Care Team (Late Contact Info) Description 01/27/2025 7:00 AM CDT Office Visit [facility] Medical Group Family & Internal Medicine - [place] [address] [place] [phone] [place] [address] [place], [place] [phone] 10/22/2025 9:15 AM MANUFACTURING ELECTRICIAN Office Visit [facility]-[address] [phone] Mily Gan MD [address] [place], [place] [phone] documented as of this encounter Procedures Procedure Name Priority Date/Time Associated Diagnosis Comments OUTSIDE LAB (SCAN ORDER) Routine 11/27/2018 OUTSIDE LAB (SCAN ORDER) Routine 11/27/2018 OUTSIDE LAB (SCAN ORDER) Routine 11/27/2018 OUTSIDE LAB (SCAN ORDER) Routine 11/27/2018 documented in this encounter Results * OUTSIDE LAB (11/27/2018) URIC ACID 6.4 4.0 - 8.0 mg/dL [facility] 11/27/2018 us Documents Scanned SCANNING Edited Result - Final Performing Organization Address [facility] Co de Phone Number [address] [address] * OUTSIDE LAB (11/27/2018) 11/27/2018 us Documents Scanned SCANNING Edited Result - Final Performing Organization Address [facility]/ZIP Co de Phone Number [address] [address] * OUTSIDE LAB (11/27/2018) 11/27/2018 us Documents Scanned SCANNING Edited Result - Final Performing Organization Address [facility]/ZIP Co de Phone Number [address] [address] * OUTSIDE LAB (11/27/2018) 11/27/2018 us Documents Scanned SCANNING Edited Result - Final Performing Organization Address [facility]/ZIP Co de Phone Number [address] [address] documented in this encounter Visit Diagnoses Not on filedocumented in this encounter
--- OUTSIDE RECORDS SUMMARY | 2024-11-02 08:17 | XMS_ITS | Encounter Summary ---
Author Organization [facility] Address [address] [place] [address]. [place], [place] [address] [place] [address] Care Team Providers Care Internet Marketing Executive Name Role Phone Unavailable Primary Care Provider Unavailabl e Encounter Details Date Type Department Care Team (Latest Contact Info) Description 09/04/2019 Scan HEALTH INFO SRVCS Scanned, Documents Social History Tobacco Use Types Packs/Day Years Used Date Smoking Tobacco: Never Assessed Sex and Gender Information Value Date Recorded Sex Assigned at Not on file Legal Sex Male 9:58 PM WASTEWATER ANALYST LAB ANALYST Gender Identity Not on file Sexual Orientation Not on file documented as of this encounter Plan of Treatment Upcoming Encounters Date Type Department Care Team (Late st Contact Info) Description 01/27/2025 7:00 AM CDT Office Visit [facility] Medical Group Family & Internal Medicine - [place] [phone] [place] [phone] Ilir Nelson [place] [address] [place] [address] 10/22/2025 9:15 AM WASTEWATER ANALYST LAB ANALYST Office Visit [facility]-[address] [phone] Mily Gan MD [address] [place] [address] documented as of this encounter Visit Diagnoses Not on filedocumented in this encounter
--- OUTSIDE RECORDS SUMMARY | 2024-11-02 08:17 | XMS_ITS | Encounter Summary ---
Author Organization [facility] Address [address] [place] [address]. [place], [place] [address] [place] [address] Care Team Providers Care Geospatial Technician Name Role Phone Unavailable Primary Care Provider Unavailabl e Encounter Details Date Type Department Care Team (Latest Contact Info) Description 06/03/2019 Scan HEALTH INFO SRVCS Scanned, Documents Social History Tobacco Use Types Packs/Day Years Used Date Smoking Tobacco: Never Assessed Sex and Gender Information Value Date Recorded Sex Assigned at Not on file Legal Sex Male 9:58 PM DIAMOND DRILLER HELPER Gender Identity Not on file Sexual Orientation Not on file documented as of this encounter Plan of Treatment Upcoming Encounters Date Type Department Care Team (Late st Contact Info) Description 01/27/2025 7:00 AM CDT Office Visit [facility] Medical Group Family & Internal Medicine - [place] [address] [place] [phone] [place] [address] [place] [address] 10/22/2025 9:15 AM DIAMOND DRILLER HELPER Office Visit [facility]-[address] [phone] Mily Gan MD [address] [place] [address] documented as of this encounter Visit Diagnoses Not on filedocumented in this encounter
--- OUTSIDE RECORDS SUMMARY | 2024-11-02 08:17 | XMS_ITS | Encounter Summary ---
Author Organization [facility] Address [address] [place] [address]. [place], [place] [address] [place] [address] Care Team Providers Care Shellacker Name Role Phone Unavailable Primary Care Provider Unavailabl e Encounter Details Date Type Department Care Team (Latest Contact Info) Description 09/21/2018 Scan HEALTH INFO SRVCS Scanned, Documents Social History Tobacco Use Types Packs/Day Years Used Date Smoking Tobacco: Never Assessed Sex and Gender Information Value Date Recorded Sex Assigned at Not on file Legal Sex Male 9:58 PM PHOTOGRAPHIC MACHINE OPERATOR Gender Identity Not on file Sexual Orientation Not on file documented as of this encounter Plan of Treatment Upcoming Encounters Date Type Department Care Team (Late st Contact Info) Description 01/27/2025 7:00 AM CDT Office Visit [facility] Medical Group Family & Internal Medicine - [place] [address] [place] [phone] [place] [address] [place] [address] 10/22/2025 9:15 AM PHOTOGRAPHIC MACHINE OPERATOR Office Visit [facility]-[address] [phone] Mily Gan MD [address] [place] [address] documented as of this encounter Visit Diagnoses Not on filedocumented in this encounter
--- OUTSIDE RECORDS SUMMARY | 2024-11-02 08:17 | XMS_ITS | Encounter Summary ---
Author Organization [facility] Address [address] [place] [address]. [place], [place] [address] [place] [address] Care Team Providers Care Mems Device Scientist Name Role Phone Unavailable Primary Care Provider Unavailabl e Encounter Details Date Type Department Care Team (Latest Contact Info) Description 12/03/2018 Scan HEALTH INFO SRVCS Scanned, Documents Social History Tobacco Use Types Packs/Day Years Used Date Smoking Tobacco: Never Assessed Sex and Gender Information Value Date Recorded Sex Assigned at Not on file Legal Sex Male 9:58 PM WIREWORKER SUPERVISOR Gender Identity Not on file Sexual Orientation Not on file documented as of this encounter Plan of Treatment Upcoming Encounters Date Type Department Care Team (Late st Contact Info) Description 01/27/2025 7:00 AM CDT Office Visit [facility] Family & Internal Medicine - [place] [address] [place] [phone] [place] [address] [place] [address] 10/22/2025 9:15 AM WIREWORKER SUPERVISOR Office Visit [facility] [phone] Mily Gan MD [address] [place] [address] documented as of this encounter Visit Diagnoses Not on filedocumented in this encounter
--- OUTSIDE RECORDS SUMMARY | 2024-11-02 08:17 | XMS_ITS | Encounter Summary ---
Author Organization [facility] Address [address] [place] [address]. [place], [place] [address] [place] [address] Care Team Providers Care Personnel Recruiter Name Role Phone Unavailable Primary Care Provider Unavailabl e Encounter Details Date Type Department Care Team (Latest Contact Info) Description 10/10/2018 Scan HEALTH INFO SRVCS Scanned, Documents Social History Tobacco Use Types Packs/Day Years Used Date Smoking Tobacco: Never Assessed Sex and Gender Information Value Date Recorded Sex Assigned at Not on file Legal Sex Male 9:58 PM LABORER CONCRETE PLANT Gender Identity Not on file Sexual Orientation Not on file documented as of this encounter Plan of Treatment Upcoming Encounters Date Type Department Care Team (Late st Contact Info) Description 01/27/2025 7:00 AM CDT Office Visit [facility] Medical Group Family & Internal Medicine - [place] [address] [place] [phone] [place] [address] [place] [address] 10/22/2025 9:15 AM LABORER CONCRETE PLANT Office Visit [facility] [phone] Mily Gan MD [address] [place] [address] documented as of this encounter Visit Diagnoses Not on filedocumented in this encounter
--- OUTSIDE RECORDS SUMMARY | 2024-11-02 08:17 | XMS_ITS | Encounter Summary ---
Author Organization [facility] Address [address] [place] [address]. [place], [place] [address] [place] [address] Care Team Providers Care Therapy Tech Name Role Phone Unavailable Primary Care Provider Unavailabl e Encounter Details Date Type Department Care Team (Latest Contact Info) Description 06/26/2017 Scan HEALTH INFO SRVCS Scanned, Documents Social History Tobacco Use Types Packs/Day Years Used Date Smoking Tobacco: Never Assessed Sex and Gender Information Value Date Recorded Sex Assigned at Not on file Legal Sex Male 9:58 PM BINITROTOLUENE OPERATOR Gender Identity Not on file Sexual Orientation Not on file documented as of this encounter Plan of Treatment Upcoming Encounters Date Type Department Care Team (Late st Contact Info) Description 01/27/2025 7:00 AM CDT Office Visit [facility] Medical Group Family & Internal Medicine - [place] [address] [place] [phone] Ilir Nelson [place] [address] [place] [address] 10/22/2025 9:15 AM BINITROTOLUENE OPERATOR Office Visit [facility]-[address] [phone] Mily Gan MD [address] [place] [address] documented as of this encounter Visit Diagnoses Not on filedocumented in this encounter
--- OUTSIDE RECORDS SUMMARY | 2024-11-02 08:17 | XMS_ITS | Encounter Summary ---
Author Organization [facility] Address [address] [place] [address]. [place], [place] [address] [place] [address] Care Team Providers Care Doctor Of Nurse Anesthesia Practice Name Role Phone Unavailable Primary Care Provider Unavailabl e Encounter Details Date Type Department Care Team (Latest Contact Info) Description 06/19/2015 Scan HEALTH INFO SRVCS Scanned, Documents Social History Tobacco Use Types Packs/Day Years Used Date Smoking Tobacco: Never Assessed Sex and Gender Information Value Date Recorded Sex Assigned at Not on file Legal Sex Male 9:58 PM GEOSPATIAL SPECIALIST Gender Identity Not on file Sexual Orientation Not on file documented as of this encounter Plan of Treatment Upcoming Encounters Date Type Department Care Team (Late st Contact Info) Description 01/27/2025 7:00 AM CDT Office Visit [facility] Medical Group Family & Internal Medicine - [place] [address] [place] [phone] [place] [address] [place] [address] 10/22/2025 9:15 AM GEOSPATIAL SPECIALIST Office Visit [facility]-[address] [phone] Mily Gan MD [address] [place] [address] documented as of this encounter Visit Diagnoses Not on filedocumented in this encounter
--- OUTSIDE RECORDS SUMMARY | 2024-11-02 08:17 | XMS_ITS | Encounter Summary ---
Author Organization [facility] Address [address] [place] [address]. [place], [place] [address] [place] [address] Care Team Providers Care Net Mender Name Role Phone Unavailable Primary Care Provider Unavailabl e Encounter Details Date Type Department Care Team (Late st Contact Info) Description 12/26/[address] [facility] [address] [place], [place] [address]104[address] Ria Joiner MD [address] [id number] Social History Tobacco Use Types Packs/Day Years Used Date Smoking Tobacco: Never Assessed Sex and Gender Information Value Date Recorded Sex Assigned at Not on file Legal Sex Male 9:58 PM PSYCHOTHERAPIST Gender Identity Not on file Sexual Orientation Not on file documented as of this encounter Plan of Treatment Upcoming Encounters Date Type Department Care Team (Late Contact Info) Description 01/27/2025 7:00 AM CDT Office Visit [facility] Medical Group Family & Internal Medicine [address] [phone] Ilir Nelson PA [address] [place] [address] 10/22/2025 9:15 AM PSYCHOTHERAPIST Office Visit [facility] [address] [phone] Mily Gan MD [address] [place] [address] documented as of this encounter Visit Diagnoses Diagnosis Primary osteoarthritis of left knee Primary localized osteoarthrosis, lower leg documented in this encounter
--- OUTSIDE RECORDS SUMMARY | 2024-11-02 08:17 | XMS_ITS | Encounter Summary ---
Author Organization [facility] Address [address] [place] [address]. [place], [place] [address] [place] [address] Care Team Providers Care Wilderness Guide Name Role Phone Unavailable Primary Care Provider Unavailabl e Reason for Visit * Reason Comments Lab (SCAN) CBC WITH DIFFERENTIA L Encounter Details Date Type Department Care Team (Late st Contact Info) Description 11/27/2018 Scan HEALTH INFO SRVCS Scanned, Documents Lab (SCAN) (CBC WITH DIFFERENTIAL ) Social History Tobacco Use Types Packs/Day Years Used Date Smoking Tobacco: Never Assessed Sex and Gender Information Value Date Recorded Sex Assigned at Not on file Legal Sex Male 9:58 PM STAFF SERVICES MANAGER Gender Identity Not on file Sexual Orientation Not on file documented as of this encounter Plan of Treatment Upcoming Encounters Date Type Department Care Team (Late st Contact Info) Description 01/27/2025 7:00 AM CDT Office Visit [facility] Medical Group Family & Internal Medicine - [place] [address] [place] [phone] [place] [address] [place] [address] 10/22/2025 9:15 AM STAFF SERVICES MANAGER Office Visit [facility]-[address] [phone] Mily Gan MD [address] [address] documented as of this encounter Procedures Procedure Name Priority Date/Time Associated Diagnosis Comments OUTSIDE LAB (SCAN ORDER) Routine 11/27/2018 documented in this encounter Results * OUTSIDE LAB (11/27/2018) 11/27/2018 us Documents Scanned SCANNING Edited Result - Final [facility] [address] [address] documented in this encounter Visit Diagnoses Not on filedocumented in this encounter
--- OUTSIDE RECORDS SUMMARY | 2024-11-02 08:17 | XMS_ITS | Encounter Summary ---
Author Organization [facility] Address [address] [place] [address]. [place], [place] [address] [place] [address] Care Team Providers Care Morning News Producer Name Role Phone Unavailable Primary Care Provider Unavailabl e Encounter Details Date Type Department Care Team (Latest Contact Info) Description 04/26/2018 Scan HEALTH INFO SRVCS Scanned, Documents Social History Tobacco Use Types Packs/Day Years Used Date Smoking Tobacco: Never Assessed Sex and Gender Information Value Date Recorded Sex Assigned at Not on file Legal Sex Male 9:58 PM SENIOR RESTAURANT MANAGER Gender Identity Not on file Sexual Orientation Not on file documented as of this encounter Plan of Treatment Upcoming Encounters Date Type Department Care Team (Late st Contact Info) Description 01/27/2025 7:00 AM CDT Office Visit [facility] Medical Group Family & Internal Medicine - [place] [address] [place] [phone] [place] [address] [place] [address] 10/22/2025 9:15 AM SENIOR RESTAURANT MANAGER Office Visit [facility]-[address] [phone] Mily Gan MD [address] [place] [address] documented as of this encounter Visit Diagnoses Not on filedocumented in this encounter
--- OUTSIDE RECORDS SUMMARY | 2024-11-02 08:17 | XMS_ITS | Encounter Summary ---
Author Organization [facility] Address [address] [place] [address]. [place], [place] [address] [place] [address] Care Team Providers Care Transaction Coordinator Name Role Phone Unavailable Primary Care Provider Unavailabl e Encounter Details Date Type Department Care Team (Latest Contact Info) Description 12/14/2016 Scan HEALTH INFO SRVCS Scanned, Documents Social History Tobacco Use Types Packs/Day Years Used Date Smoking Tobacco: Never Assessed Sex and Gender Information Value Date Recorded Sex Assigned at Not on file Legal Sex Male 9:58 PM TOPOGRAPHICAL FIELD ASSISTANT Gender Identity Not on file Sexual Orientation Not on file documented as of this encounter Plan of Treatment Upcoming Encounters Date Type Department Care Team (Late st Contact Info) Description 01/27/2025 7:00 AM CDT Office Visit [facility] Medical Group Family & Internal Medicine - [place] [address] [place] [phone] [place] [address] [place] [address] 10/22/2025 9:15 AM TOPOGRAPHICAL FIELD ASSISTANT Office Visit [facility]-[address] [phone] Mily Gan MD [address] [place] [address] documented as of this encounter Visit Diagnoses Not on filedocumented in this encounter
--- OUTSIDE RECORDS SUMMARY | 2024-11-02 08:17 | XMS_ITS | Encounter Summary ---
Author Organization [facility] Address [address] [place] [address]. [place], [place] [address] [place] [address] Care Team Providers Care Garden Consultant Name Role Phone Unavailable Primary Care Provider Unavailabl e Encounter Details Date Type Department Care Team (Latest Contact Info) Description 08/29/2016 Scan HEALTH INFO SRVCS Scanned, Documents Social [...] Medical Group Family & Internal Medicine - [place] [address] [place] [phone] [place] [address] [place] [address] 10/22/2025 9:15 AM AD CLERK Office Visit [facility]-[address] [phone] Mily Gan MD [address] [place] [address] documented as of this encounter Visit Diagnoses Not on filedocumented in this encounter
--- OUTSIDE RECORDS SUMMARY | 2024-11-02 08:17 | XMS_ITS | Encounter Summary ---
Author Organization [facility] Address [address] [place] [address]. [place], [place] [address] [place] [address] Care Team Providers Care Auditing Coder Name Role Phone Unavailable Primary Care Provider Unavailabl e Encounter Details Date Type Department Care Team (Latest Contact Info) Description 03/27/2019 Scan HEALTH INFO SRVCS Scanned, Documents Social History Tobacco Use Types Packs/Day Years Used Date Smoking Tobacco: Never Assessed Sex and Gender Information Value Date Recorded Sex Assigned at Not on file Legal Sex Male 9:58 PM CARTON WRAPPER Gender Identity Not on file Sexual Orientation Not on file documented as of this encounter Plan of Treatment Upcoming Encounters Date Type Department Care Team (Late st Contact Info) Description 01/27/2025 7:00 AM CDT Office Visit [facility] Medical Group Family & Internal Medicine - [place] [address] [place] [phone] [place] [address] [place] [address] 10/22/2025 9:15 AM CARTON WRAPPER Office Visit [facility]-[address] [phone] Mily Gan MD [address] [place] [address] documented as of this encounter Visit Diagnoses Not on filedocumented in this encounter
--- OUTSIDE RECORDS SUMMARY | 2024-11-02 08:17 | XMS_ITS | Encounter Summary ---
Author Organization [facility] Address [address] [place] [address]. [place], [place] [address] [place] [address] Care Team Providers Care Rn Team Leader Name Role Phone Lorie Chan MD Primary Care Provider + [phone] Moraima Toledo RN Unavailable [phone] Moraima Toledo RN Unavailable [phone] Candis Bee NP Primary Care Provider [phone] Ilir Nelson Primary Care Provider [phone] Encounter Details Date Type Department Care Team (Late st Contact Info) Description 12/26/[address] [address] [place], [place] [address] , Generic Conversion, Social History Tobacco Use Types Packs/Day Years Used Date Smoking Tobacco: Never Assessed Sex and Gender Information Value Date Recorded Sex Assigned at Not on file Legal Sex Male 9:58 PM RN TRANSITIONAL Gender Identity Not on file Sexual Orientation Not on file documented as of this encounter Plan of Treatment Upcoming Encounters Date Type Department Care Team (Late st Contact Info) Description 01/27/2025 7:00 AM CDT Office Visit [facility] Medical Group Family & Internal Medicine [address] [phone] Ilir Nelson PA [address] [place] [address] 10/22/2025 9:15 AM RN TRANSITIONAL Office Visit [facility]-[address] [phone] Mily Gan MD [facility] [address] [place], [place] [address] documented as of this encounter Visit Diagnoses Not on filedocumented in this encounter Additional Health Concerns Infection Onset Date Last Indicated Resolved Time COVID-19 Rule Out 03/07/2021 03/07/2021 03/08/2021 2:56 PM CDT documented as of this encounter Care Teams Rn Team Leader Relationship Specialty Start Date End Date Lorie Chan MD PCP - General INTERNAL MEDICINE 01/15/20 02/09/23 [place] [address] [facility], [address] [place] [address] PCP - General Nurse Practitioner Family 02/10/23 01/05/24 [place] [address] [place] [address] PCP - General Physician Skin Washer Medical 01/06/24 Moraima Toledo, RN [address] [place] [address] Door Attendant (Ambulatory) REGISTERED NURSE 03/19/21 03/30/21 Moraima Toledo RN [address] [place] [address] Door Attendant (Ambulatory) REGISTERED NURSE 09/23/21 10/18/21 documented as of this encounter
--- OUTSIDE RECORDS SUMMARY | 2024-11-02 08:17 | XMS_ITS | Encounter Summary ---
Author Organization [facility] Address [address] [place] [address]. [place], [place] [address] [place] [address] Care Team Providers Care Quality Assurance Test Program Manager Name Role Phone Unavailable Primary Care Provider Unavailabl e Encounter Details Date Type Department Care Team (Latest Contact Info) Description 09/09/2016 Scan HEALTH INFO SRVCS Scanned, Documents Social History Tobacco Use Types Packs/Day Years Used Date Smoking Tobacco: Never Assessed Sex and Gender Information Value Date Recorded Sex Assigned at Not on file Legal Sex Male 9:58 PM RISK PROFESSIONAL Gender Identity Not on file Sexual Orientation Not on file documented as of this encounter Plan of Treatment Upcoming Encounters Date Type Department Care Team (Late st Contact Info) Description 01/27/2025 7:00 AM CDT Office Visit [facility] Medical Group Family & Internal Medicine - [place] [address] [place] [address] [place] [address] [place] [address] 10/22/2025 9:15 AM RISK PROFESSIONAL Office Visit [facility]-[address] [phone] Mily Gan MD [address] [place] [address] documented as of this encounter Visit Diagnoses Not on filedocumented in this encounter
--- OUTSIDE RECORDS SUMMARY | 2024-11-02 08:17 | XMS_ITS | Encounter Summary ---
Author Organization [facility] Address [address] [place] [address]. [place], [place] [address] [place] [address] Care Team Providers Care Obstetrics Scrub Nurse Name Role Phone Unavailable Primary Care Provider Unavailabl e Reason for Visit * Reason Comments Lab (SCAN) Encounter Details Date Type Department Care Team (Latest Contact Info) Description 02/15/2019 Scan HEALTH INFO SRVCS Scanned, Documents Lab (SCAN) Social History Tobacco Use Types Packs/Day Years Used Date Smoking Tobacco: Never Assessed Sex and Gender Information Value Date Recorded Sex Assigned at Not on file Legal Sex Male 9:58 PM ESCORT CAR DRIVER Gender Identity Not on file Sexual Orientation Not on file documented as of this encounter Plan of Treatment Upcoming Encounters Date Type Department Care Team (Late st Contact Info) Description 01/27/2025 7:00 AM CDT Office Visit [facility] Medical Group Family & Internal Medicine [facility] [address] [place] [address] [place] [address] [place], [place] [address] 10/22/2025 9:15 AM ESCORT CAR DRIVER Office Visit [facility] [address] Mily Gan MD [address] [id number] documented as of this encounter Procedures Procedure Name Priority Date/Time Associated Diagnosis Comments OUTSIDE LAB (SCAN ORDER) Routine 02/15/2019 documented in this encounter Results * OUTSIDE LAB (02/15/2019) HGB A1C 5.6 <=5.7 [facility] 02/15/2019 us Documents Scanned SCANNING Edited Result - Final [facility] [address] [place] [address] documented in this encounter Visit Diagnoses Not on filedocumented in this encounter
--- OUTSIDE RECORDS SUMMARY | 2024-11-02 08:17 | XMS_ITS | Encounter Summary ---
Author Organization [facility] Address [address] [place] [address]. [place], [place] [address] [place] [address] Care Team Providers Care Welder Setter Electron Beam Machine Name Role Phone Unavailable Primary Care Provider Unavailabl e Encounter Details Date Type Department Care Team (Latest Contact Info) Description 12/07/2015 Scan HEALTH INFO SRVCS Scanned, Documents Social History Tobacco Use Types Packs/Day Years Used Date Smoking Tobacco: Never Assessed Sex and Gender Information Value Date Recorded Sex Assigned at Not on file Legal Sex Male 9:58 PM TOP HAT BODY MAKER Gender Identity Not on file Sexual Orientation Not on file documented as of this encounter Plan of Treatment Upcoming Encounters Date Type Department Care Team (Late st Contact Info) Description 01/27/2025 7:00 AM CDT Office Visit [facility] Medical Group Family & Internal Medicine - [place] [address] [place] [phone] [place]ir Nelson [place] [address] [place] [address] 10/22/2025 9:15 AM TOP HAT BODY MAKER Office Visit [facility]-[address] [phone] Mily Gan MD [address] [place] [address] documented as of this encounter Visit Diagnoses Not on filedocumented in this encounter
--- OUTSIDE RECORDS SUMMARY | 2024-11-02 08:17 | XMS_ITS | Encounter Summary ---
Author Organization [facility] Address [address] [place] [address]. [place], [place] [address] [place] [address] Care Team Providers Care Budget Accountant Name Role Phone Lorie Chan MD Primary Care Provider + [phone] Moraima Toledo RN Unavailable [phone] Moraima Toledo RN Unavailable [phone] Candis Bee NP Primary Care Provider [phone] Ilir Nelson Primary Care Provider [phone] Encounter Details Date Type Department Care Team (Late st Contact Info) Description 08/26/[address] [facility] [address] [place], [place] [address] , Generic Conversion, Social History Tobacco Use Types Packs/Day Years Used Date Smoking Tobacco: Never Assessed Sex and Gender Information Value Date Recorded Sex Assigned at Not on file Legal Sex Male 9:58 PM FOOD AND DRUG RESEARCH SCIENTIST Gender Identity Not on file Sexual Orientation Not on file documented as of this encounter Plan of Treatment Upcoming Encounters Date Type Department Care Team (Late st Contact Info) Description 01/27/2025 7:00 AM CDT Office Visit [facility] Medical Group Family & Internal Medicine [address] [phone] Ilir Nelson PA [address] [place] [address] 10/22/2025 9:15 AM FOOD AND DRUG RESEARCH SCIENTIST Office Visit [facility]-[address] [phone] Mily Gan MD [facility] [address] [place], [place] 513[address] documented as of this encounter Visit Diagnoses Not on filedocumented in this encounter Additional Health Concerns Infection Onset Date Last Indicated Resolved Time COVID-19 Rule Out 03/07/2021 03/07/2021 03/08/2021 2:56 PM CDT documented as of this encounter Care Teams Budget Accountant Relationship Specialty Start Date End Date Lorie Chan MD PCP - General INTERNAL MEDICINE 01/15/20 02/09/23 [place] [address] [facility], [address] [place] [address] PCP - General Nurse Practitioner Family 02/10/23 01/05/24 [place] [address] [place] [address] PCP - General Physician Flyer Builder Medical 01/06/24 Moraima Toledo, RN [address] [place] [address] Oil Separator (Ambulatory) REGISTERED NURSE 03/19/21 03/30/21 Moraima Toledo RN [address] [place] [address] Oil Separator (Ambulatory) REGISTERED NURSE 09/23/21 10/18/21 documented as of this encounter
--- OUTSIDE RECORDS SUMMARY | 2024-11-02 08:17 | XMS_ITS | Encounter Summary ---
Author Organization [facility] Address [address] [place] [address]. [place], [place] [address] [place] [address] Care Team Providers Care Hydrate Thickener Operator Name Role Phone Unavailable Primary Care Provider Unavailabl e Encounter Details Date Type Department Care Team (Latest Contact Info) Description 03/11/2016 Scan HEALTH INFO SRVCS Scanned, Documents Social History Tobacco Use Types Packs/Day Years Used Date Smoking Tobacco: Never Assessed Sex and Gender Information Value Date Recorded Sex Assigned at Not on file Legal Sex Male 9:58 PM MONUMENT SETTER HELPER Gender Identity Not on file Sexual Orientation Not on file documented as of this encounter Plan of Treatment Upcoming Encounters Date Type Department Care Team (Late st Contact Info) Description 01/27/2025 7:00 AM CDT Office Visit [facility] Medical Group Family & Internal Medicine - [place] [address] [place] [address] [place] [address] [place] [address] 10/22/2025 9:15 AM MONUMENT SETTER HELPER Office Visit [facility] [address] Mily Gan MD [address] [place] [address] documented as of this encounter Visit Diagnoses Not on filedocumented in this encounter
--- OUTSIDE RECORDS SUMMARY | 2024-11-02 08:18 | XMS_ITS | Encounter Summary ---
Author Organization [facility] Address [address] [place] [address]. [place], [place] [address] [place] [address] Care Team Providers Care Mechanical Manufacturing Technician Name Role Phone Unavailable Primary Care Provider Unavailabl e Encounter Details Date Type Department Care Team (Late st Contact Info) Description 04/23/[address] [facility] [address] [place] [address] [place], [place] 504191 Cody Swenson MD [address] [place] [address] Social History Tobacco Use Types Packs/Day Years Used Date Smoking Tobacco: Never Assessed Sex and Gender Information Value Date Recorded Sex Assigned at Not on file Legal Sex Male 9:58 PM SAIL MAKER Gender Identity Not on file Sexual Orientation Not on file documented as of this encounter Plan of Treatment Upcoming Encounters Date Type Department Care Team (Late Contact Info) Description 01/27/2025 7:00 AM CDT Office Visit [facility] Family & Internal Medicine [facility] [address] [place] [address] [place] [address] [place] [address] 10/22/2025 9:15 AM SAIL MAKER Office Visit [facility] [address] Mily Gan MD [address] [place] [address] documented as of this encounter Visit Diagnoses Diagnosis Localized osteoarthrosis, lower leg Localized osteoarthrosis not specified whether primary or secondary, lower leg documented in this encounter
--- OUTSIDE RECORDS SUMMARY | 2024-11-02 08:18 | XMS_ITS | Encounter Summary ---
Author Organization [facility] Address [address] [place] [address]. [place], [place] [address] [place] [address] Care Team Providers Care Mine Superintendent Name Role Phone Unavailable Primary Care Provider Unavailabl e Encounter Details Date Type Department Care Team (Latest Contact Info) Description 12/05/2014 Scan HEALTH INFO SRVCS Scanned, Documents Social History Tobacco Use Types Packs/Day Years Used Date Smoking Tobacco: Never Assessed Sex and Gender Information Value Date Recorded Sex Assigned at Not on file Legal Sex Male 9:58 PM BAILER OPERATORS SUPERVISOR Gender Identity Not on file Sexual Orientation Not on file documented as of this encounter Plan of Treatment Upcoming Encounters Date Type Department Care Team (Late st Contact Info) Description 01/27/2025 7:00 AM CDT Office Visit [facility] Medical Group Family & Internal Medicine - [place] [address] [place] [phone] [place] Nelson [place] [address] [place] [address] 10/22/2025 9:15 AM BAILER OPERATORS SUPERVISOR Office Visit [facility]-[address] [address] Mily Gan MD [address] [place] [address] documented as of this encounter Visit Diagnoses Not on filedocumented in this encounter
--- OUTSIDE RECORDS SUMMARY | 2024-11-02 08:18 | XMS_ITS | Encounter Summary ---
Author Organization [facility] Address [address] [place] [address]. [place], [place] [address] [place] [address] Care Team Providers Care Rd Mechanical Engineer Name Role Phone Unavailable Primary Care Provider Unavailabl e Encounter Details Date Type Department Care Team (Latest Contact Info) Description 10/14/2013 Scan HEALTH INFO SRVCS Scanned, Documents Social History Tobacco Use Types Packs/Day Years Used Date Smoking Tobacco: Never Assessed Sex and Gender Information Value Date Recorded Sex Assigned at Not on file Legal Sex Male 9:58 PM MARKETING INFORMATION MANAGER Gender Identity Not on file Sexual Orientation Not on file documented as of this encounter Plan of Treatment Upcoming Encounters Date Type Department Care Team (Late st Contact Info) Description 01/27/2025 7:00 AM CDT Office Visit [facility] Medical Group Family & Internal Medicine - [place] [address] [place] [address] [place] [address] [place] [address] 10/22/2025 9:15 AM MARKETING INFORMATION MANAGER Office Visit [facility]-[address] [address] Mily Gan MD [address] [place] [address] documented as of this encounter Visit Diagnoses Not on filedocumented in this encounter
--- OUTSIDE RECORDS SUMMARY | 2024-11-02 08:18 | XMS_ITS | Encounter Summary ---
Author Organization [facility] Address [address] [place] [address]. [place], [place] [address] [place] [address] Care Team Providers Care Blender / Cook Name Role Phone Unavailable Primary Care Provider Unavailabl e Encounter Details Date Type Department Care Team (Latest Contact Info) Description 03/19/2015 Scan HEALTH INFO SRVCS Scanned, Documents Social History Tobacco Use Types Packs/Day Years Used Date Smoking Tobacco: Never Assessed Sex and Gender Information Value Date Recorded Sex Assigned at Not on file Legal Sex Male 9:58 PM WORLDWIDE CHIEF CREATIVE OFFICER Gender Identity Not on file Sexual Orientation Not on file documented as of this encounter Plan of Treatment Upcoming Encounters Date Type Department Care Team (Late st Contact Info) Description 01/27/2025 7:00 AM CDT Office Visit [facility] Medical Group Family & Internal Medicine - [place] [address] [place] [phone] [place] [address] [place] [address] 10/22/2025 9:15 AM WORLDWIDE CHIEF CREATIVE OFFICER Office Visit [facility]-[address] [address] Mily Gan MD [address] [place] [address] documented as of this encounter Visit Diagnoses Not on filedocumented in this encounter
--- OUTSIDE RECORDS SUMMARY | 2024-11-02 08:18 | XMS_ITS | Encounter Summary ---
Author Organization [facility] Address [address] [place] [address]. [place], [place] [address] [place] [address] Care Team Providers Care Acid Conditioner Name Role Phone Unavailable Primary Care Provider Unavailabl e Reason for Visit * Reason Comments Image (SCAN) Encounter Details Date Type Department Care Team (Latest Contact Info) Description 10/15/2014 Scan HEALTH INFO SRVCS Scanned, Documents Image (SCAN) Social History Tobacco Use Types Packs/Day Years Used Date Smoking Tobacco: Never Assessed Sex and Gender Information Value Date Recorded Sex Assigned at Not on file Legal Sex Male 9:58 PM INTERN RETAIL Gender Identity Not on file Sexual Orientation Not on file documented as of this encounter Plan of Treatment Upcoming Encounters Date Type Department Care Team (Late st Contact Info) Description 01/27/2025 7:00 AM CDT Office Visit [facility] Medical Group Family & Internal Medicine [facility] [address] [place] [address] [place] [address] [place], [place] [phone] 10/22/2025 9:15 AM INTERN RETAIL Office Visit [facility] [address] Mily Gan MD [address] [phone] documented as of this encounter Procedures Procedure Name Priority Date/Time Associated Diagnosis Comments IMAGE GENERIC Routine 10/15/2014 documented in this encounter Results * IMAGE STUDY (10/15/2014) Anatomical Region Laterality Modality Other us Documents Scanned SCANNING Final Result documented in this encounter Visit Diagnoses Not on filedocumented in this encounter
--- OUTSIDE RECORDS SUMMARY | 2024-11-02 08:18 | XMS_ITS | Encounter Summary ---
Author Organization [facility] Address [address] [place] [address]. [place], [place] [address] [place] [address] Care Team Providers Care Sld Inclusion Teacher Name Role Phone Unavailable Primary Care Provider Unavailabl e Encounter Details Date Type Department Care Team (Latest Contact Info) Description 10/15/2014 Scan HEALTH INFO SRVCS Scanned, Documents Social History Tobacco Use Types Packs/Day Years Used Date Smoking Tobacco: Never Assessed Sex and Gender Information Value Date Recorded Sex Assigned at Not on file Legal Sex Male 9:58 PM POOL COORDINATOR Gender Identity Not on file Sexual Orientation Not on file documented as of this encounter Plan of Treatment Upcoming Encounters Date Type Department Care Team (Late st Contact Info) Description 01/27/2025 7:00 AM CDT Office Visit [facility] Medical Group Family & Internal Medicine - [place] [address] [place] [address] [place] [address] [place] [address] 10/22/2025 9:15 AM POOL COORDINATOR Office Visit [facility] [phone] Mily Gan MD [address] [place] [address] documented as of this encounter Visit Diagnoses Not on filedocumented in this encounter
--- OUTSIDE RECORDS SUMMARY | 2024-11-02 08:18 | XMS_ITS | Encounter Summary ---
Author Organization [facility] Address [address] [place] [address]. [place], [place] [address] [place] [address] Care Team Providers Care District Customs Director Name Role Phone Lorie Chan MD Primary Care Provider [phone] Moraima Toledo RN Unavailable [phone] Moraima Toledo RN Unavailable [phone] Candis Bee NP Primary Care Provider [phone] Ilir Nelson Primary Care Provider [phone] Reason for Visit * Reason Comments Sleep Study (SCAN) Encounter Details Date Type Department Care Team ([facility] Contact Info) Description 12/25/2014 Scan HEALTH INFO SRVCS Scanned, Doc Med Group Sleep Study (SCAN) Social History Tobacco Use Types Packs/Day Years Used Date Smoking Tobacco: Never Assessed AUDIT-C Answer Date Recorded Q1: How often [...] on file Legal Sex Male 9:58 PM LICENSE AND PERMIT SPECIALIST Gender Identity Not on file Sexual Orientation Not on file COVID-19 Exposure Response Date Recorded In the last 10 days, have danii gauthier been in contact with someone who was confirmed or suspected to have Coronavirus/COVID-19? No / Unsure 04/10/2023 7:46 AM CDT documented as of this encounter Functional Status documented as of this encounter Mental Status * Question Answer Entry Date Author Status Because of a physical, mental, or emotional condition, do you have serious difficulty concentrating, remembering, or making decisions? No 10/02/2021 12:38 PM LICENSE AND PERMIT SPECIALIST Annette Jorge RN Active documented in this encounter Plan of Treatment Upcoming Encounters Date Type Department Care Team (Late st Contact Info) Description 01/27/2025 7:00 AM CDT Office Visit [facility] Medical Group Family & Internal Medicine [facility] [address] [place] [phone] [place] [address] [place] [address] 10/22/2025 9:15 AM LICENSE AND PERMIT SPECIALIST Office Visit [facility]-[address] [address] Mily Gan MD [address] [address] documented as of this encounter [...] Procedure Name Priority Date/Time Associated Diagnosis Comments SLEEP STUDY GENERIC (SCAN ORDER) 12/25/2014 documented in this encounter Results * SLEEP STUDY GENERIC (12/25/2014) 12/25/2014 us Doc Med Group Scanned SCANNING Final Resu lt documented in this encounter Visit Diagnoses Not on filedocumented in this encounter Additional Health Concerns Infection Onset Date Last Indicated Resolved Time COVID-19 Rule Out 03/07/2021 03/07/2021 03/08/2021 2:56 PM CDT documented as of this encounter Care Teams District Customs Director Relationship Specialty Start Date End Date Lorie Chan MD PCP - General INTERNAL MEDICINE 01/15/20 02/09/23 [place] [address] [facility] [address] [place], [place] [phone] PCP - General Nurse Practitioner [facility] 02/10/23 01/05/24 [place] [address] [address] [place], [place] [phone] PCP - General Physician [facility] Supervisor Medical 01/06/24 Moraima Toledo, RN [address] [place] [address] Medical Laboratory Technical Officer (Ambulatory) REGISTERED NURSE 03/19/21 03/30/21 Moraima Toledo RN [address] [place] [address] Medical Laboratory Technical Officer (Ambulatory) REGISTERED NURSE 09/23/21 10/18/21 documented as of this encounter
--- OUTSIDE RECORDS SUMMARY | 2024-11-02 08:18 | XMS_ITS | Encounter Summary ---
Author Organization [facility] Address [address] [place] [address]. [place], [place] [address] [place] [address] Care Team Providers Care Pest Controller Assistant Name Role Phone Unavailable Primary Care Provider Unavailabl e Encounter Details Date Type Department Care Team (Late st Contact Info) Description 04/18/2014 Abstract [facility] [address] [place], [place] 4[address] Cody Swenson MD [address] [place] [address] Social History Tobacco Use Types Packs/Day Years Used Date Smoking Tobacco: Never Assessed Sex and Gender Information Value Date Recorded Sex Assigned at Not on file Legal Sex Male 9:58 PM TELEPHONE APPOINTMENT CLERK Gender Identity Not on file Sexual Orientation Not on file documented as of this encounter Plan of Treatment Upcoming Encounters Date Type Department Care Team (Late st Contact Info) Description 01/27/2025 7:00 AM CDT Office Visit [facility] Medical Group Family & Internal Medicine [address] [address] Ilir Nelson PA [address] [place] [address] 10/22/2025 9:15 AM TELEPHONE APPOINTMENT CLERK Office Visit [facility] [address] [address] Mily Gan MD [address] [place] [address] documented as of this encounter Visit Diagnoses Diagnosis Pre-operative examination Preoperative examination, unspecified documented in this encounter
--- OUTSIDE RECORDS SUMMARY | 2024-11-02 08:18 | XMS_ITS | Encounter Summary ---
Author Organization [facility] Address [address] [place] [address]. [place], [place] [address] [place] [address] Care Team Providers Care Car Changer Name Role Phone Unavailable Primary Care Provider Unavailabl e Encounter Details Date Type Department Care Team (Latest Contact Info) Description 04/15/2013 Scan HEALTH INFO SRVCS Scanned, Documents Social History Tobacco Use Types Packs/Day Years Used Date Smoking Tobacco: Never Assessed Sex and Gender Information Value Date Recorded Sex Assigned at Not on file Legal Sex Male 9:58 PM SLASH TRIMMER Gender Identity Not on file Sexual Orientation Not on file documented as of this encounter Plan of Treatment Upcoming Encounters Date Type Department Care Team (Late st Contact Info) Description 01/27/2025 7:00 AM CDT Office Visit [facility] Medical Group Family & Internal Medicine - [place] [address] [place] [address] [place] Nelson [place] [address] [place] [address] 10/22/2025 9:15 AM SLASH TRIMMER Office Visit [facility]-[address] [address] Mily Gan MD [address] [place] [address] documented as of this encounter Visit Diagnoses Not on filedocumented in this encounter
--- OUTSIDE RECORDS SUMMARY | 2024-11-02 08:43 | XMS_ITS | Clinical Summary ---
Author Organization [facility] Address [address] [place] [address] Care Team Providers Care Melter Clerk Name Role Phone Lorie Chan MD Primary Care Provider [phone] Allergies Active Allergy Reactions Criticality Noted Date Comments Morphine Itching Medium 09/09/2016 Medications atorvastatin (LIPITOR) 40 mg tablet TAKE 1 TABLET NIGHTLY AT BEDTIME. CHANGE FROM PRAVASTATIN DUE TO CHOLESTEROL NOT AT GOAL 3 Active cyanocobalamin (Vitamin B-12) 1,000 mcg tablet Take 1,000 mcg by mouth daily Active ascorbic acid (VITAMIN C) 100 mg tablet Take 100 mg by mouth daily 1 Active cholecalciferol (VITAMIN D-3) 2000 unit capsule Take 50 mcg by mouth daily 1 Active vitamin E acid succinate (vitamin E succinate) 268 mg (400 unit) tablet Take 400 Units by mouth daily 1 Active aspirin 81 mg chewable tablet Take 81 mg by mouth daily 1 Active zinc gluconate 50 mg tablet Take 1 tablet by mouth daily 1 Active Active Problems Problem Noted Date Diagnosed Date Status post Neel procedure ([facility]) 021 Perforated diverticulum 03/18/2021 Pharyngoesophageal dysphagia 02/25/2021 Overview (01/05/2023): Added automatically from request for surgery [id number] Cervical stenosis of spinal canal 10/02/2018 RANDY on CPAP 10/16/2015 Hyperlipidemia 04/15/2013 Social History Tobacco Use Types Packs/Day Years Used Date Smoking Tobacco: Never Assessed Personal Safety Answer Date Recorded Getting School Help Needed Not on file 11/12 Sex and Gender Information Value Date Recorded Sex Assigned at Not on file Legal Sex Male 9:53 AM VASCULAR NEUROLOGIST Gender Identity Male 12/10/2022 9:30 AM VASCULAR NEUROLOGIST Sexual Orientation Straight 12/10/2022 9: 30 AM VASCULAR NEUROLOGIST Plan of Treatment Health Maintenance Due Date Last Done Comments Colon Cancer Screening-Colonoscopy 1954 Depression Screening 1954 Fall Risk Assessment 1954 Hepatitis C Screening 1954 Hepatitis B Screening 1972 Abdominal Aortic Aneurysm (A AA) Screen 2019 Well Visit 65+ 2019 Zoster Vaccine (2 of 2) 01/30/2023 12/05/2022 Covid-19 Vaccine (5 - 2023-2 5 season) 2024 08/25/2022, 08/25/2022, 11/08/2021, Additional history exists Influenza Vaccine (#1) 2024 , 07/14/2021, 07/21/2020, Additional history exists DTaP/Tdap/Td Vaccine (4 - Td or Tdap) 01/04/2030 01/05/2020, 12/29/2019, 07/08/2013 Pneumococcal vaccine 65+ Completed 020, 08/06/2019, 10/20/2016, Additional history exists Insurance MEDICARE SOLUTIONS MEDICARE SOLUTIONS Care Teams Melter Clerk Relationship Specialty [place] [address] [address] PCP - General Internal Medicine 12/05/22
--- OUTSIDE RECORDS SUMMARY | 2024-11-02 08:44 | XMS_ITS | Encounter Summary ---
Author Organization [facility] Healthcare Address [facility] [place] [address] Care Team Providers Care Housing Director Name Role Phone Lorie Chan MD Primary Care Provider [phone] Encounter Details Date Type Department Care Team (Latest Contact Info) Description 01/05/2023 11:49 AM MEDICAL INSURANCE CLAIMS SPECIALIST - 01/05/2023 11:59 PM MEDICAL INSURANCE CLAIMS SPECIALIST Hospital Encounter [facility] [address] [place] [address] Discharge Disposition: Discharge to home or self care Social History Tobacco Use Types Packs/Day Years Used Date Smoking Tobacco: Never Assessed Sex and Gender Information Value Date Recorded Sex Assigned at Not on file Legal Sex Male 9:53 AM MEDICAL INSURANCE CLAIMS SPECIALIST Gender Identity Male 12/10/2022 9:30 AM MEDICAL INSURANCE CLAIMS SPECIALIST Sexual Orientation Straight 12/10/2022 9: 30 AM MEDICAL INSURANCE CLAIMS SPECIALIST documented as of this encounter Medications at Time of Discharge ascorbic acid (VITAMIN C) 100 mg tablet Take 100 mg by mouth daily 03/24/2021 aspirin 81 mg chewable tablet Take 81 mg by mouth daily 03/24/2021 atorvastatin (LIPITOR) 40 mg tablet TAKE 1 TABLET NIGHTLY AT BEDTIME. CHANGE FROM PRAVASTATIN DUE TO CHOLESTEROL NOT AT GOAL 12/08/2022 cholecalciferol (VITAMIN D-3) 2000 unit capsule Take 50 mcg by mouth daily 03/24/2021 cyanocobalamin (Vitamin B-12) 1,000 mcg tablet Take 1,000 mcg by mouth daily vitamin E acid succinate (vitamin E succinate) 268 mg (400 unit) tablet Take 400 Units by mouth daily 03/24/2021 zinc gluconate 50 mg tablet Take 1 tablet by mouth daily 03/24/2021 documented as of this encounter Discharge Disposition Disposition Code Departure Means Destination Discharge to home or self care documented in this encounter Plan of Treatment Not on file documented as of this encounter Procedures Procedure Name Priority Date/Time Associated Diagnosis Comments XR TRANSFER OF OUTSIDE FILMS Routine 01/05/2023 11:49 AM MEDICAL INSURANCE CLAIMS SPECIALIST Diagnosis unknown documented in this encounter Results * XR Outside Reference (01/05/2023 11:49 AM MEDICAL INSURANCE CLAIMS SPECIALIST) Impressions [facility] - 01/05/2023 11:49 AM MEDICAL INSURANCE CLAIMS SPECIALIST These images are for Reference purposes only and have not been reviewed by [facility] Radiology. ??There will be no report generated by a [facility] Radiologist. Narrative [facility] - 01/05/2023 11:49 AM MEDICAL INSURANCE CLAIMS SPECIALIST EXAMINATION: ??Images For Reference Purposes Only us Burak Mendez MD IMG XR PROCEDURES Fin al Result [facility] documented in this encounter Visit Diagnoses Not on filedocumented in this encounter Care Teams Housing Director Relationship Specialty [place] [id number] [address] [address] PCP - General Internal Medicine 12/05/22 documented as of this encounter
--- OUTSIDE RECORDS SUMMARY | 2024-11-02 08:44 | XMS_ITS | Encounter Summary ---
Author Organization [facility] Address [address] [place] [address] Care Team Providers Care Health Insurance Specialist Name Role Phone Lorie Chan MD Primary Care Provider [phone] Reason for Referral * Diagnostic Imaging (Routine) - Closed Specialty Diagnoses / Procedures Referred By Shelby t Referred To Contact Diagnoses Pain in joint of left shoulder Procedures XR Shoulder Left 2 or More Views Burak Mendez MD [address] [employer] [facility] [address] [place] [address] Phone: tel: fax: [address] [phone] Referral ID Status Reason Start Date Expiration Date Visits Re quested Visits Authorized [id number] Closed 12/30/2022 01/29/2024 1 1 OW AGENT Reason for Visit * Diagnostic Imaging (Routine) - Closed Specialty Diagnoses / Procedures Referred By Contac t Referred To Contact Diagnoses Pain in joint of left shoulder Procedures XR Shoulder Left 2 or More Views Burak Mendez MD [address] [place] [address] Phone: tel: fax: [address] [phone] Referral ID Status Reason Start Date Expiration Date Visits Re quested Visits Authorized [id number] Closed 12/30/2022 01/29/2024 1 1 Encounter Details Date Type Department Care Team (Latest Contact Info) Description 01/05/2023 9:45 AM PILLOW AGENT - 01/05/2023 11:48 AM PILLOW AGENT Hospital Encounter [facility] [address] [place] [id number] Pain in joint of left shoulder Discharge Disposition: Discharge to home or self care Social History Tobacco Use Types Packs/Day Years Used Date Smoking Tobacco: Never Assessed Sex and Gender Information Value Date Recorded Sex Assigned at Not on file Legal Sex Male 9:53 AM PILLOW AGENT Gender Identity Male 12/10/2022 9:30 AM PILLOW AGENT Sexual Orientation Straight 12/10/2022 9: 30 AM PILLOW AGENT documented as of this encounter Medications at [...] Priority Date/Time Associated Diagnosis Comments XR SHOULDER LEFT 2 OR MORE VIEWS Schedule Routine, Read Routine (OP Routine) 01/05/2023 10:24 AM PILLOW AGENT Pain in joint of left shoulder documented in this encounter Results * XR Shoulder Left 2 or More Views (01/05/2023 10:24 AM PILLOW AGENT) Anatomical Region Laterality Modality Upper Extremities, Shoulder Left Comp uted Radiography 01/05/2023 11:1 8 AM PILLOW AGENT Impressions 01/05/2023 11:22 AM PILLOW AGENT 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 Dictated by: Leonard Mehta M.D. The radiology attending physician has personally reviewed this study, and had reviewed and/or edited this written report and agrees with it. Electronically signed by: Og Villagran MD Narrative 01/05/2023 11:22 AM PILLOW AGENT EXAMINATION: XR SHOULDER LEFT 2 OR MORE VIEWS HISTORY: PAIN FINDINGS: 4 views of the left shoulder submitted for evaluation without comparison. Mild acromioclavicular and glenohumeral joint osteoarthritis. Alignment is normal. ??No fractures or dislocation. Procedure Note Og Villagran MD - 01/05/2023 EXAMINATION: XR SHOULDER LEFT 2 OR MORE VIEWS HISTORY: PAIN FINDINGS: 4 views of the left shoulder submitted for evaluation without comparison. Mild acromioclavicular and glenohumeral joint osteoarthritis. Alignment is normal. No fractures or dislocation. 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 Dictated by: Leonard Mehta M.D. The radiology attending physician has personally reviewed this study, and had reviewed and/or edited this written report and agrees with it. Electronically signed by: Og Villagran MD Burak Mendez MD IMG XR PROCEDURES Fin al Result documented in this encounter Visit Diagnoses Diagnosis Pain in joint of left shoulder documented in this encounter Care Teams Health Insurance Specialist Relationship Specialty [place] [id number] [address] PCP - General Internal Medicine 12/05/22 documented as of this encounter
--- OUTSIDE RECORDS SUMMARY | 2024-11-02 08:44 | XMS_ITS | Referral Summary ---
Author Organization [facility] Address [address] [place] [address] Care Team Providers Care Manager [place] Name Role Phone Lorie Chan MD Primary Care Provider [phone] Allergies Active Allergy Reactions Criticality Noted Date [...] Date Diagnosed Date Status post Neel procedure ([facility]) 021 Perforated diverticulum 03/18/2021 Pharyngoesophageal dysphagia 02/25/2021 Overview (01/05/2023): Added automatically from request for surgery [id number] Cervical stenosis of spinal canal 10/02/2018 RANDY on CPAP 10/16/2015 Hyperlipidemia 04/15/2013 Social History Tobacco Use Types Packs/Day Years Used Date Smoking Tobacco: Never Assessed Personal Safety Answer Date Recorded Getting School Help Needed Not on file 11/12 Sex and Gender Information Value Date Recorded Sex Assigned at Not on file Legal Sex Male 9:53 AM WEIGHER BULKER Gender Identity Male 12/10/2022 9:30 AM WEIGHER BULKER Sexual Orientation Straight 12/10/2022 9: 30 AM WEIGHER BULKER Plan of Treatment Not on file Insurance MEDICARE SOLUTIONS MEDICARE SOLUTIONS Care Teams Manager [place] Relationship Specialty [place] [address] [address] PCP - General Internal Medicine 12/05/22
--- OUTSIDE RECORDS SUMMARY | 2024-11-02 08:44 | XMS_ITS | Encounter Summary ---
Author Organization [facility] Address [address] [place] [address] Phone Care Team Providers Care Project Engineer Name Role Phone Lorie Chan MD Primary Care Provider [phone] Reason for Referral * Procedure (Routine) - Closed Specialty Diagnoses / Procedures Referred By Shelby jama Referred To Contact Diagnoses Rotator cuff tendinitis, left Procedures Large Joint Injection: L subacromial bursa Burak Mendez MD [address] [facility] [place] [address] Phone: tel: fax: [facility] (All Locations) Referral ID Status Reason Start Date Expiration Date Visits Re quested Visits Authorized [id number] Closed 01/05/2023 02/04/2024 1 1 AGE PICK UP WORKER * Diagnostic Imaging (Routine) - Closed Specialty Diagnoses / Procedures Referred By Shelby jama Referred To Contact Diagnoses Pain in joint of left shoulder Procedures XR Shoulder Left 2 or More Views Burak Mendez MD [address] [facility] [address] [place] [address] Phone: tel: fax: [facility] [address] [facility] [place] [address] Referral ID Status Reason Start Date Expiration Date Visits Re quested Visits Authorized [id number] Closed 12/30/2022 01/29/2024 1 1 AGE PICK UP WORKER Reason for Visit * Reason Comments Pain Encounter Details Date Type Department Care Team (Late st Contact Info) Description 01/05/2023 10:00 AM GARBAGE PICK UP WORKER Office Visit [facility] Orthopaedic Surgery [address] [facility] [address] [place] [address] [place] [address] Burak Mendez MD [address] [facility] [address] [place] [address] Rotator cuff tendinitis, left (Primary Dx) Social History Tobacco Use Types Packs/Day Years Used Date Smoking Tobacco: Never Assessed Sex and Gender Information Value Date Recorded Sex Assigned at Not on file Legal Sex Male 9:53 AM GARBAGE PICK UP WORKER Gender Identity Male 12/10/2022 9:30 AM GARBAGE PICK UP WORKER Sexual Orientation Straight 12/10/2022 9: 30 AM GARBAGE PICK UP WORKER documented as of this encounter Progress Notes * Burak Mendez MD - 01/05/2023 10:00 AM CSTAssociated Order(s): Large Joint Injection: L subacromial bursa Post-Procedure Diagnose(s): Rotator cuff tendinitis, left Images from the original note were not included. NEW PATIENT VISIT CHIEF COMPLAINT Left shoulder pain HISTORY OF PRESENT ILLNESS Natan Patel is a 67 y.o. right-hand dominant male presenting with left shoulder pain. Reports that the pain has been present for greater than 1 year. There was no acute trauma/event leading to thedevelopment of the pain. Reports pain is lateral and superior. does not endorse radiating pain pastthe elbow. He previously had a cervical spine procedure, the indication for which was primarily neck pain although he did experience some radiation along his left trapezius. He describes 1 recent episode where he experienced cramping in his left middle finger, however he denies any true radicular symptoms. Reports that the pain is worse with any overhead activities. States that the pain is interfe ring with sleep. Other symptoms: none. 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 PAST SURGICAL HISTORY He has no past surgical history on file. INITIAL REVIEW OF MEDICATIONS He has a current medication list which includes the following prescription(s): ascorbic acid, aspirin, atorvastatin, cholecalciferol, vitamin e succinate, zinc gluconate, and cyanocobalamin. DRUG ALLERGIES He is allergic to morphine. SOCIAL HISTORY He Social History Tobacco Use Smoking status: Not on file Smokeless tobacco: Not on file Substance and Sexual Activity Drug use: Not on file Sexual activity: Not on file Alcohol Use: Not on file FAMILY HISTORY His family history is not on file. REVIEW OF SYSTEMS Review of Systems All other systems reviewed and are negative. PHYSICAL EXAMINATION General Patient is alert and oriented x 3 and in no acute distress. Mood and affect are within normal limits. Respirations non-labored. Hearing intact to spoken word. Focused Examination of the Left Shoulder Normal resting scapular posture. Active forward elevation to 160??. External rotation at the side to 40??, internal rotation behind the back to upper lumbar spine. Passive true glenohumeral abductionto 90??. In abduction, he can be externally rotated 70?? and can hold this position without lag. Hedemonstrates mild weakness and pain with cuff testing and job position external rotation at the side. Negative abdominal compression and bear hug. Positive lateral impingement. Mild discomfort with cross-body adduction. No tenderness to palpation over the acromioclavicular joint. There is tenderness to palpation over the anterior shoulder. He has mild pain with speed and Yergason's. Deltoid fireswell. Mild subjectively decreased sensation along the posterolateral arm. Normal distal neurovascular exam. REVIEW OF IMAGING X-rays of the left shoulder, obtained today, were personally reviewed. Based on my independent interpretation of the imaging, there is well-maintained glenohumeral joint space without significant inferior head/neck junction osteophyte on the true AP view. There is no evidence of narrowing of the acr omial humeral interval on the AP views with maintained subacromial space. Acromial morphology appears normal. There is a small acromial spur on the scapular outlet view. AC joint arthrosis is moderate. On axillary lateral, the humeral head is centered on the glenoid and the glenoid is without deformity or dysplasia. IMPRESSION/DIAGNOSIS Natan Patel is a 67 y.o. right-hand dominant male presenting with left shoulder subacromial bursitis and cuff based pain as well as biceps tenosynovitis. Large Joint Injection: L subacromial bursa Performed by: Burak Mendez MD Authorized by: Burak Mendez MD Large Joint Injection/Aspiration: Consent Given by: Patient Verbal consent obtained: Yes Supporting Documentation: Indications: Pain Procedure Details: Location: Shoulder Site: L subacromial bursa Prep: patient was prepped using a clean technique Needle Size: 21 G Approach: Posterior Medications: 3 mL BUPivacaine HCl 0.5 % (5 mg/mL); 3 mL lidocaine 10 mg/mL (1 %); 40 mg triamcinolone 40 mg/mL Patient tolerance: Patient tolerated the procedure well with no immediate complications TREATMENT PLAN We had a discussion with Natan Patel that their clinical constellation is most consistent with the above. The natural history of this condition was discussed. Discussed etiologies of pain with the patient. Explained that his imaging and exam did not indicateany significant rotator cuff pathology. Discussed various treatment options and recommended starting with conservative nonoperative treatment. Recommended a subacromial cortisone injection as well asphysical therapy. Subacromial injection was performed by Dr. Mendez in clinic today. The patient was in agreement with the plan and all questions were answered. FOLLOW-UP As needed Chirag Monaco MD Clinical Fellow Shoulder and Elbow Service [facility] Dr. Chirag Monaco dictating using Fluency Direct. Estimator And Drafter Supervisor variances may occur. ATTENDING ADDENDUM The patient was seen today with the resident/fellow. I was present for the history, physical exam, case discussion and plan. I agree with documented, history, physical exam, and Assessment and Plan as dictated in the full clinic note. My total encounter time on 01/05/2023 was 45 minutes which was spent in the activities documented in the note. This includes time spent prior to the visit and after the visit in direct care of the patient. This time does not include time spent in any separately reportable services. Burak Mendez MD Ship/Rec/Doc Control of Orthopedic Surgery Shoulder and Elbow Service [facility] Dr. Burak Mendez dictating using Fluency Direct. Estimator And Drafter Supervisor variances may occur. AGE PICK UP WORKER documented in this encounter Plan of Treatment Not on file documented as of this encounter Procedures Procedure Name Priority Date/Time Associated Diagnosis Comments ND ARTHROCENTESIS ASPIR&/INJ MAJOR JT/BURSA W/O US Routine 01/05/2023 10:00 AM GARBAGE PICK UP WORKER Rotator cuff tendinitis, left documented in this encounter Results * XR Shoulder Left 2 or More Views (01/05/2023 10:24 AM GARBAGE PICK UP WORKER) Anatomical Region Laterality Modality Upper Extremities, Shoulder Left Comp uted Radiography 01/05/2023 11:1 8 AM GARBAGE PICK UP WORKER Impressions 01/05/2023 11:22 AM GARBAGE PICK UP WORKER 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 Dictated by: Leonard Mehta M.D. The radiology attending physician has personally reviewed this study, and had reviewed and/or edited this written report and agrees with it. Electronically signed by: Og Villagran MD Narrative 01/05/2023 11:22 AM GARBAGE PICK UP WORKER EXAMINATION: XR SHOULDER LEFT 2 OR MORE [...] MD IMG XR PROCEDURES Fin al Result * ND ARTHROCENTESIS ASPIR&/INJ MAJOR JT/BURSA W/O US (01/05/2023 10:00 AM GARBAGE PICK UP WORKER) Narrative Burak Mendez MD - 01/05/2023 10:00 AM GARBAGE PICK UP WORKER Burak Mendez MD ? 01/05/2023 ??5:10 PM Large Joint Injection: L subacromial bursa Performed by: Burak Mendez MD Authorized by: Burak Mendez MD Large Joint Injection/Aspiration: ??Consent Given by: ??Patient ??Verbal consent obtained: Yes ?? Supporting Documentation: ??Indications: ??Pain Procedure Details: ??Location: ??Shoulder ??Site: ??L subacromial bursa ??Prep: patient was prepped using a clean technique ?Needle Size: ??21 G ??Approach: ??Posterior ??Medications: ??3 mL BUPivacaine HCl 0.5 % (5 mg/mL); 3 mL lidocaine 10 mg/mL (1 %); 40 mg triamcinolone 40 mg/mL ??Patient tolerance: ??Patient tolerated the procedure well with no immediate complications Burak Mendez MD IN CLINIC/BEDSIDE ORD ERABLES Final Result documented in this encounter Visit Diagnoses Diagnosis Rotator cuff tendinitis, left- Primary Pain in joint of left shoulder documented in this encounter Administered Medications Inactive Administered Medications - up to 3 most recent administrations Medication Order MAR Action Action Date Dose Rate Site BUPivacaine HCl (MARCAINE) 0.5 % (5 mg/mL) injection 3 mL 3 mL, other, One-Time Injection, Starting on Yamilex 01/05/23 at 1710, For 1 doseIndications:Rotator cuff tendinitis, left Given 01/05/2023 5:10 PM GARBAGE PICK UP WORKER 3 mL Left Shoulder lidocaine (XYLOCAINE) 10 mg/mL (1 %) injection 3 mL 3 mL, One-Time Injection, Starting on Yamilex 01/05/23 at 1710, For 1 dose, Indications: Administration of Local AnesthesiaIndications:Adminis tration of Local Anesthesia Given 01/05/2023 5:10 PM GARBAGE PICK UP WORKER 3 mL Left Shoulder triamcinolone (KENALOG) 40 mg/mL injection 40 mg 40 mg, intra-articular, One-Time Injection, Starting on Yamilex 01/05/23 at 1710, For 1 doseIndications:Rotator cuff tendinitis, left Given 01/05/2023 5:10 PM GARBAGE PICK UP WORKER 40 mg Left Shoulder documented in this encounter Historical Medications * This list may reflect changes made after this encounter. zinc gluconate 50 mg tablet Take 1 tablet by mouth daily 03/24/2021 aspirin 81 mg chewable tablet Take 81 mg by mouth daily 03/24/2021 vitamin E acid succinate (vitamin E succinate) 268 mg (400 unit) tablet Take 400 Units by mouth daily 03/24/2021 cholecalciferol (VITAMIN D-3) 2000 unit capsule Take 50 mcg by mouth daily 03/24/2021 ascorbic acid (VITAMIN C) 100 mg tablet Take 100 mg by mouth daily 03/24/2021 cyanocobalamin (Vitamin B-12) 1,000 mcg tablet Take 1,000 mcg by mouth daily atorvastatin (LIPITOR) 40 mg tablet TAKE 1 TABLET NIGHTLY AT BEDTIME. CHANGE FROM PRAVASTATIN DUE TO CHOLESTEROL NOT AT GOAL 12/08/2022 added in this encounter Care Teams Project Engineer Relationship Specialty [place] [id number] [address] PCP - General Internal Medicine 12/05/22 documented as of this encounter
--- OUTSIDE RECORDS SUMMARY | 2024-11-02 09:05 | XMS_ITS | Referral Summary ---
Author Organization [facility] Address [address] [place] [place] [address] Care Team Providers Care Baker Doughnut Name Role Phone Addison Joy MD Primary Care Provider [phone] Source Comments [facility],non-owned Affiliates and Associated Physician Practices is amultiple site organization consisting of ambulatory clinics and hospital sitesin [place], [place], [place] and [place]. This disclosure is being madepursuant to the Care Everywhere program and may not contain all information available regarding this patient. Last updated 18.[facility] [employer] Allergies Active Allergy Reactions Criticality Noted Date [...] 81 mg by mouth once daily Active [place]-3 Fatty Acids (FISH OIL) 1000 MG capsule [...] on file Medical Devices Implanted Type Area Electronic Equipment Set Up Operator Device Identifier Shelf Expiration Date Model / Serial / Lot Lukas Bone Void .5ml Dbx Algrf Frzdr Ptty - [id number] Implanted:Qty : 1 on 10/02/2018 by Chris Kay MD at [facility] Cervical [employer]culoskeletal [employer] 05/25/2020 [id number] / [id number] / Spcr Algrf [id number] Ccs Prll Spne Ayo - [id number] Implanted:Qty : 1 on 10/02/2018 by Chris Kay MD at [facility] Cervical [employer] 06/14/2021 [id number] / [id number] / Description:C6-C7 Graft Bone Vivigen Ayo Cnc Dmnr 1cc - [id number] Implanted:Qty : 1 on 10/02/2018 by Chris Kay MD at [facility] Cervical Lifenet 08/07/2019 BL-1500-0 01 / [id number] / Plate Bnt Grv Prebnt [id number] 1 Lvl 1 - [id number] Implanted:Qty : 1 on 10/02/2018 by Chris Kay MD at [facility] Cervical Synthes Spine 450.552 / [id number] / Description:C6-7 Screw 4.5mm 18mm Spne Crv Ant Slf-Tap Implanted:Qty : 4 on 10/02/2018 by Chris Kay MD at [facility] Cervical Synthes Spine 8 / / Description:C6-7 Spcr Algrf [id number] Prll Spne Crv Ayo - [id number] Implanted:Qty : 1 on 10/02/2018 by Chris Kay MD at [facility] Cervical [employer] 02/07/2021 [id number] / [id number] / Screw 4.5mm 16mm Spne Crv Ant Slf-Tap Implanted:Qty : 4 on 10/02/2018 by Chris Kay MD at [facility] Cervical Synthes Spine 6 / / Description:C3-4 Vectra Plate Implanted:Qty : 1 on 10/02/2018 by Chris Kay MD at [facility] Cervical 4 / [id number] / Procedures Procedure Name Priority Date/Time Associated Diagnosis Comments COMPREHENSIVE METABOLIC PANEL 02/15/2019 7:51 AM CDT from Last 3 Months or Most Recently Relevant to Health Maintenance Results * COMPREHENSIVE METABOLIC PANEL (02/15/2019 7:51 AM CDT) [facility] Glucose 95 65 - 99 mg/dL [facility] Comment: ? Fasting reference interval BUN 14 7 - 25 mg/dL [facility] Creatinine 0.74 0.70 - 1.25 mg/dL [facility] Comment: For patients >49 years of age, the reference limit for Creatinine is approximately 13% higher for people identified as -Citizen Of [place]. eGFR by MDRD 97 > OR = [...] 46 U/L [facility] Comment: Test Performed at: [facility] ??[id number] MICHEL LEO DO,MPH 02/15/2019 7:51 AM CDT 02/15/2019 7:52 AM CDT Yosvany Gonsalez MD LAB - CHEMISTRY [facility] Organization Address City/State/[facility] Co de Phone Number [facility] [address] [place] [address] from Last 3 Months or Most Recently Relevant to Health Maintenance Administered Medications Advance Directives * Full Code (Latest Code Status on File) Date Activated Date Inactivated Comments 10/02/2018 7:29 PM 10/03/2018 4:57 PM Care Teams Baker Doughnut Relationship Specialty Start Date End Date Addison Joy MD [address] [place] [address] PCP - General Internal Medicine 09/04/19
--- OUTSIDE RECORDS SUMMARY | 2024-11-02 09:05 | XMS_ITS | Clinical Summary ---
Author Organization [facility] Address [address] [place] [address] Care Team Providers Care Gis Database Administrator Name Role Phone Addison Joy MD Primary Care Provider [phone] Source Comments [facility],non-owned Affiliates and Associated Physician Practices is amultiple site organization consisting of ambulatory clinics and hospital sitesin [place] and [place]. This disclosure is being madepursuant to the Care Everywhere program and may not contain all information available regarding this patient. Last updated 18.[facility] Allergies Active Allergy Reactions Criticality Noted Date [...] 81 mg by mouth once daily Active [place]-3 Fatty Acids (FISH OIL) 1000 MG capsule [...] this topic Medical Devices Implanted Type Area Combatant Diver Officer Device Identifier Shelf Expiration Date Model / Serial / Lot Lukas Bone Void .5ml Dbx Algrf Frzdr Ptty - [id number] Implanted:Qty : 1 on 10/02/2018 by Chris Kay MD at [facility] Spine Cervical Musculoskeletal Transplant Foundati 05/25/2020 [id number] / [id number] / Spcr Algrf [id number] Ccs Prll Spne Ayo - [id number] Implanted:Qty : 1 on 10/02/2018 by Chris Kay MD at [facility] Cervical Musculoskeletal Transplant Foundati 06/14/2021 [id number] / [id number] / Description:C6-C7 Graft Bone Vivigen Ayo Cnc Dmnr 1cc - [id number] Implanted:Qty : 1 on 10/02/2018 by Chris Kay MD at [facility] Cervical Lifenet 08/07/2019 BL-[id number] 01 / [id number] / Plate Bnt Grv Prebnt 33b65v2.5mm 1 Lvl 1 - [id number] Implanted:Qty : 1 on 10/02/2018 by Chris Kay MD at [facility] Spine Cervical Synthes Spine 450.552 / [id number] / Description:C6-7 Screw 4.5mm 18mm Spne Crv Ant Slf-Tap Implanted:Qty : 4 on 10/02/2018 by Chris Kay MD at [facility] Spine Cervical Synthes Spine 04.613.66 8 / / Description:C6-7 Spcr Algrf 12y53s5ad Prll Spne Crv Ayo - [id number] Implanted:Qty : 1 on 10/02/2018 by Chris Kay MD at [facility] Cervical Musculoskeletal Transplant Foundati 02/07/2021 [id number] / [id number] / Screw 4.5mm 16mm Spne Crv Ant Slf-Tap Implanted:Qty : 4 on 10/02/2018 by Chris Kay MD at [facility] Spine Cervical Synthes Spine 6 / / Description:C3-4 Vectra Plate Implanted:Qty : 1 on 10/02/2018 by Chris Kay MD at [facility] Chris Spine Cervical 4 / [id number] / Procedures Procedure Name Priority Date/Time Associated [...] approximately 13% higher for people identified as -Liberian. eGFR by MDRD 97 > OR = [...] 46 U/L [facility] Comment: Test Performed at: [facility] [facility] [address] ??[id number] MICHEL LEO DO,MPH 02/15/2019 7:51 AM CDT 02/15/2019 7:52 AM CDT Yosvany Gonsalez MD LAB - CHEMISTRY VIVIANA [facility] [address] [place] [address] from Last 3 Months or Most Recently Relevant to Health Maintenance Advance Directives * Full Code (Latest Code Status on File) Date Activated Date Inactivated Comments 10/02/2018 7:29 PM 10/03/2018 4:57 PM Care Teams Gis Database Administrator Relationship Specialty Start Date End Date Addison Joy MD [address] [phone] PCP - General Internal Medicine 09/04/19
--- OUTSIDE RECORDS SUMMARY | 2024-11-02 09:06 | XMS_ITS | Encounter Summary ---
Author Organization [facility] Address [address] [place] [address] Care Team Providers Care Business Division Chair Name Role Phone Yosvany Gonsalez MD Primary Care Provider [phone] Reason for Visit * Reason Onset Date Comments Refill Request 12/30/2016 Encounter Details Date Type Department Care Team (Late st Contact Info) Description 12/30/2016 Telephone [facility] - Family Medicine [address] [phone] Yosvany Gonsalez MD [address] [place] [address] [place] [address] Refill Request Social History Tobacco [...] script at [place] [employer] and send to [facility].Done. OR FINANCIAL CONSULTANT documented in this encounter Plan of Treatment Not on file documented as of this encounter Visit Diagnoses Not on filedocumented in this encounter Care Teams Business Division Chair Relationship Specialty Start Date End Date Yosvany Gonsalez MD [address] [place] [address] PCP - General Internal Medicine 04/08/13 09/03/19 documented as of this encounter
--- OUTSIDE RECORDS SUMMARY | 2024-11-02 09:06 | XMS_ITS | Encounter Summary ---
Author Organization [facility] Address [address] [place] [address] Care Team Providers Care Commercial Shrimping Captain Name Role Phone Yosvany Gonsalez MD Primary Care Provider [phone] Reason for Visit * Reason Comments Comprehensive Chronic Disease Evaluation Medication Check Follow-up Encounter Details Date Type Department Care Team (Late st Contact Info) Description 04/26/2018 4:15 PM CDT Office Visit [facility] Medical [facility] - Family Medicine [address], [facility] [place] [address] Yosvany Gonsalez MD [address] [place] [address] [place] [address] Annual physical exam (Primary Dx); [...] 81 mg by mouth once daily ??? [place]-3 Fatty Acids (FISH OIL) 1000 MG capsule [...] of education: 12 Occupational History ??? [employer] Social History Main Topics ??? Smoking [...] Wt 79 kg (174 lb 3.2 oz) BbN039% BMI 27.28 kg/m2 PHYSICAL EXAM: BP 135/79 Pulse 80 Temp 97.7 ??F (36.5 ??C) (Oral) Ht 1.702 m (5' 7 ) Wt 79 kg (174 lb 3.2 oz) UyO759% BMI 27.28 kg/m2 General appearance: alert, cooperative, [...] cells/uL Gran 53.5 % Lymph 32.5 % Mitchell 12.0 % Eos 1.1 % Baso 0.9 [...] (pediatric) documented in this encounter Care Teams Commercial Shrimping Captain Relationship Specialty Start Date End Date Yosvany Gonsalez MD [address] [place] [phone] PCP - General Internal Medicine 04/08/13 09/03/19 documented as of this encounter
--- OUTSIDE RECORDS SUMMARY | 2024-11-02 09:06 | XMS_ITS | Encounter Summary ---
Author Organization [facility] Address [address] [place] [address] Care Team Providers Care Cardiac Monitor Technician Name Role Phone Sunshine Yosvany Marcial MD Primary Care Provider [phone] Reason for Visit * Reason Comments Cough GENERALIZED BODY ACHES Encounter Details Date Type Department Care Team (Late st Contact Info) Description 10/24/2017 4:15 PM DATA ANALYST ETL DEVELOPER Office Visit [facility] [address] [phone] Provider1, [facility] Fever, unspecified fever cause (Primary [...] Comments Blood Pressure 124/68 10/24/2017 4:19 PM DATA ANALYST ETL DEVELOPER Pulse 109 10/24/2017 4:19 PM DATA ANALYST ETL DEVELOPER Temperature 37.8 ??C (100.1 ??F) 10/24/2017 4:[address] Respiratory Rate 16 10/24/2017 4:19 PM DATA ANALYST ETL DEVELOPER Oxygen Saturation 96% 10/24/2017 4:19 PM DATA ANALYST ETL DEVELOPER Inhaled Oxygen Concentration - - Weight 80.3 kg (177 lb) 10/24/2017 4:19 PM DATA ANALYST ETL DEVELOPER Height 170.2 cm (5' 7 ) 10/24/2017 4:19 PM DATA ANALYST ETL DEVELOPER Body Mass Index 27.72 10/24/2017 4:19 PM DATA ANALYST ETL DEVELOPER documented in this encounter Patient Instructions * Patient Instructions* Rahel Feliz PA-C - 10/24/2017 4:40 PM DATA ANALYST ETL DEVELOPER Images from the original note were not [...] has the flu ?? Living in a long term or long-term care facility ?? Living in [...] ?? Clean shared items with a germ-killing lens cleaner. Clean table surfaces, doorknobs, and light switches. [...] treatment. The above information is an educational recruiter only. It is not intended as medical advice for individual conditions or treatments. Talk to your doctor, nurse or pharmacist before following any medical regimen to see if it is safe and effective for you. ?? 2016 [employer]. Information is for End User's use only and may not be sold, redistributed or otherwise used for commercial purposes. All illustrations and images included in CareNotes?? are the copyrighted property of [employer] ([employer]ish[employer]. or [employer]. ANALYST ETL DEVELOPER documented in this encounter Progress Notes * [...] aspirin (ASPIRIN) 81 MG chew tablet ??? [place]-3 Fatty Acids (FISH OIL) 1000 MG capsule [...] if symptoms worsen or fail to improve. ANALYST ETL DEVELOPER documented in this encounter Plan of Treatment Not on file documented as of this encounter Procedures Procedure Name Priority Date/Time Associated Diagnosis Comments INFLUENZA A+B - POINT OF CARE (AMB) Routine 10/24/2017 4:39 PM DATA ANALYST ETL DEVELOPER Body aches documented in this encounter Results * INFLUENZA A+B - POINT OF CARE (AMB) (10/24/2017 4:39 PM DATA ANALYST ETL DEVELOPER) Influenza A Antigen Rapid Negative Negative Influenza B Antigen Rapid Negative Negative Influenza Internal Control present NEGATIVE - POSITIVE Influenza Lot Number [id number] Influenza Expiration Date 05/2019 Other SPECIMEN FROM NASOPHARYNGEAL STRUCTURE / Unknown 10/24/2017 4:39 PM DATA ANALYST ETL DEVELOPER Rahel Feliz PA-C LAB - POINT OF CARE ORDERABLES documented in this encounter Visit Diagnoses Diagnosis Fever, unspecified fever cause- Primary Body aches Generalized pain Upper respiratory tract infection, unspecified type documented in this encounter Care Teams Cardiac Monitor Technician Relationship Specialty Start Date End Date Yosvany Gonsalez MD [address] [phone] PCP - General Internal Medicine 04/08/13 09/03/19 documented as of this encounter
--- OUTSIDE RECORDS SUMMARY | 2024-11-02 09:06 | XMS_ITS | Encounter Summary ---
Author Organization [facility] Address [address] [place] [address] Care Team Providers Care Impregnator Name Role Phone Yosvany Gonsalez MD Primary Care Provider [phone] Encounter Details Date Type Department Care Team (Latest Contact Info) Description 09/25/2018 11:00 AM RAILWAY SWITCHMAN - 09/25/2018 11:59 PM RAILWAY SWITCHMAN Hospital Encounter [facility] [address] [place] [phone] Chris Kay MD [address] [place] [phone] Discharge Disposition: Home or Self Care Anesthesia [...] CO2 Monitor 10/02/18 1249 by Jaz العراقي APRN-FERRYBOAT DECKHAND 10/02/18 1722 by Anupam Valdez MANAGER PROCESS-FERRYBOAT DECKHAND Procedural Site (Incision) 10/02/18; 1616; Neck; 10/03/18; [...] Comments Blood Pressure 158/84 09/25/2018 11:37 AM RAILWAY SWITCHMAN Pulse 64 09/25/2018 11:37 AM RAILWAY SWITCHMAN Temperature 36.3 ??C (97.3 ??F) 09/25/2018 11:[address] Respiratory Rate 16 09/25/2018 11:37 AM RAILWAY SWITCHMAN Oxygen Saturation 99% 09/25/2018 11:37 AM RAILWAY SWITCHMAN Inhaled Oxygen Concentration - - Weight 78.9 kg (174 lb) 09/25/2018 11:37 AM RAILWAY SWITCHMAN Height 170.2 cm (5' 7 ) 09/25/2018 11:37 AM RAILWAY SWITCHMAN Body Mass Index 27.25 09/25/2018 11:37 AM RAILWAY SWITCHMAN documented in this encounter Medications at Time of Discharge Medication Sig Dispensed Refills Start Date End Date aspirin (ASPIRIN) 81 MG chew tablet Take 81 mg by mouth once daily Cholecalciferol (VITAMIN D) 2000 UNITS CAPS capsule Take 2,000 Units by mouth once daily [place]-3 Fatty Acids (FISH OIL) 1000 MG capsule [...] of all instructions given. All questions answered. WAY SWITCHMAN documented in this encounter Plan of Treatment Not on file documented as of this encounter Procedures Procedure Name Priority Date/Time Associated Diagnosis Comments MRSA + SA DNA PCR PANEL Routine 09/25/2018 11:27 AM RAILWAY SWITCHMAN Herniated nucleus pulposus, C3-4 left Cervical stenosis of spine TYPE + SCREEN PANEL Routine 09/25/2018 1 1:27 AM RAILWAY SWITCHMAN Herniated nucleus pulposus, C3-4 left Cervical stenosis of spine HGB HCT PANEL Routine 09/25/2018 11:27 AM RAILWAY SWITCHMAN Herniated nucleus pulposus, C3-4 left Cervical stenosis of spine Chronic obstructive pulmonary disease, unspecified COPD type (HCC) EKG 12-LEAD Routine 09/25/2018 11:22 AM RAILWAY SWITCHMAN Herniated nucleus pulposus, C3-4 left Cervical stenosis of spine Chronic obstructive pulmonary disease, unspecified COPD type (HCC) documented in this encounter Results * HGB HCT PANEL (09/25/2018 11:27 AM RAILWAY SWITCHMAN) Hemoglobin 14.8 13.7 - 17.5 gm/dL 09/25/2018 11:39 AM RAILWAY SWITCHMAN [facility] Hematocrit 43.6 40.1 - 51.0 % 09/25/2018 11:39 AM RAILWAY SWITCHMAN [facility] Blood BLOOD SPECIMEN / Unknown Venipuncture / Unknown 09/25/2018 11:27 AM RAILWAY SWITCHMAN 09/25/2018 11:34 AM RAILWAY SWITCHMAN Ke Browne MD LAB - HEMATOLOGY ORD ERABLES Performing Organization Address [facility] Co de Phone Number [facility] [address] * TYPE + SCREEN PANEL (09/25/2018 11:27 AM RAILWAY SWITCHMAN) ABO O 09/25/2018 12:47 PM RAILWAY SWITCHMAN [facility] Rh Type Positive 09/25/2018 12:47 PM RAILWAY SWITCHMAN [facility] Comment:History checked. Col lect retype. Antibody Screen Negative 09/25/2018 12:47 PM RAILWAY SWITCHMAN [facility] Blood Bank BLOOD SPECIMEN / Unknown Venipuncture / Unknown 09/25/2018 11:27 AM RAILWAY SWITCHMAN 09/25/2018 11:34 AM RAILWAY SWITCHMAN Ke Browne MD LAB - BLOOD BANK ORD ERABLES Performing Organization Address [facility]/ZIP Co de Phone Number [facility] [address] * MRSA + SA DNA PCR PANEL (09/25/2018 11:27 AM RAILWAY SWITCHMAN) Pathologist [facility] MRSA DNA by PCR Negative Negative 09/25/2018 12:47 PM RAILWAY SWITCHMAN [facility] Staph aureus PCR Negative Negative 09/25/2018 12:47 PM RAILWAY SWITCHMAN [facility] Microbiology SPECIMEN FROM NASAL FOSSAE / Unknown Collection / Unknown 09/25/2018 11:27 AM RAILWAY SWITCHMAN 09/25/2018 11:34 AM RAILWAY SWITCHMAN Narrative [facility] - 09/25/2018 12:47 PM RAILWAY SWITCHMAN Staphylococcus aureus (SA) target DNA not detected. [...] - MICROBIOLOGY O RDERABLES [facility] [address] * EKG 12-LEAD (09/25/2018 11:22 AM RAILWAY SWITCHMAN) Pathologist [facility] Ventricular Rate 60 BPM [facility] Atrial Rate 60 BPM [facility] P-R Interval 180 ms [facility] QRS Duration ms 86 ms [facility] Q-T Interval ms 412 ms [facility] QTC Calculation (Bezet) 412 ms [facility] Calculated P [place] 57 degrees [facility] Calculated R [place] 34 degrees [facility] Calculated T [place] 53 degrees [facility] Interpretation EKG Normal sinus rhythm Normal ECG When compared with ECG of 16-NOV-2015 07:47, changes in the configuration of Precordial leads is probably due to lead placement differences Confirmed by MD JOHN, [facility] ([id number]) on 09/26/2018 10:40:54 AM [facility] 09/25/2018 11:2 2 AM RAILWAY SWITCHMAN 09/26/2018 10:40 AM RAILWAY SWITCHMAN Ke Browne MD ECG ORDERABLES [facility] documented in this encounter Visit Diagnoses Diagnosis Herniated nucleus pulposus, C3-4 left- Primary Displacement of cervical intervertebral disc without myelopathy Cervical stenosis of spine Spinal stenosis in cervical region Chronic obstructive pulmonary disease, unspecified COPD type (HCC) documented in this encounter Care Teams Impregnator Relationship Specialty Start Date End Date Yosvany Gonsalez MD [address] [place] [phone] PCP - General Internal Medicine 04/08/13 09/03/19 documented as of this encounter
--- OUTSIDE RECORDS SUMMARY | 2024-11-02 09:06 | XMS_ITS | Encounter Summary ---
Author Organization [facility] Address [address] [place] [address] Care Team Providers Care Tableau Architect Name Role Phone Sunshine Yosvany Marcial MD Primary Care Provider [phone] Reason for Visit * Reason Comments Cold Symptoms congestion, sore thr oat, itchy eyes x2 days Encounter Details Date Type Department Care Team (Late st Contact Info) Description 03/08/2017 4:15 PM CDT Office Visit [facility] [address] [place] [phone] Provider1, [facility] Acute non-recurrent maxillary sinusitis (Primary [...] Patient Instructions * Patient Instructions* Martin, Shanae, RENEWABLE ENERGY TECHNICIAN-APPRENTICE PAINTER NECKTIES - 03/08/2017 4:43 PM CDT Sinusitis WHAT [...] refuse treatment. The above information is an president educational institution only. It is not intended as medical advice for individual conditions or treatments. Talk to your doctor, nurse or pharmacist before following any medical regimen to see if it is safe and effective for you. ?? 2016 [employer]. Information is for End User's use only and may not be sold, redistributed or otherwise used for commercial purposes. All illustrations and images included in CareNotes?? are the copyrighted property of [employer]. or [facility]. documented in this encounter Progress Notes * Shanae Martin APRN-CNP - 03/08/2017 4:42 PM CDT 03/08/2017 PCP: Yosvany Gonsalez MD CC: Chief Complaint Patient presents with ??? Cold Symptoms congestion, sore throat, itchy eyes x2 days . HPI: Natan Patel is a 61 y.o. male presents today at the [facility] with complaints of sinus congestion, ST, [...] 81 mg by mouth once daily ??? [place]-3 Fatty Acids (FISH OIL) 1000 MG capsule [...] refuse treatment. The above information is an president educational institution only. It is not intended as medical advice for individual conditions or treatments. Talk to your doctor, nurse or pharmacist before following any medical regimen to see if it is safe and effective for you. ?? 2016 [employer]. Information is for End User's use only and may not be sold, redistributed or otherwise used for commercial purposes. All illustrations and images included in CareNotes?? are the copyrighted property of [employer] or [facility]. There are no discontinued medications. Current Outpatient [...] 81 mg by mouth once daily ??? [place]-3 Fatty Acids (FISH OIL) 1000 MG capsule [...] Primary documented in this encounter Care Teams Tableau Architect Relationship Specialty Start Date End Date Yosvany Gonsalez MD [address] [place] [phone] PCP - General Internal Medicine 04/08/13 09/03/19 documented as of this encounter
--- OUTSIDE RECORDS SUMMARY | 2024-11-02 09:06 | XMS_ITS | Encounter Summary ---
Author Organization [facility] Address [address] [place] [address] Care Team Providers Care Entrepreneurial Finance Professor Name Role Phone Yosvany Gonsalez MD Primary Care Provider [phone] Reason for Visit * Reason Comments Comprehensive Chronic Disease Evaluation Medication Check Hyperlipidemia lab results Encounter Details Date Type Department Care Team (Late st Contact Info) Description 12/03/2018 4:15 PM CARTON STENCILER Office Visit [facility] Medical [facility] - Family Medicine [address], [facility] [place] [address] Yosvany Gonsalez MD [address] [place] [address] Annual physical exam (Primary Dx); [...] Comments Blood Pressure 132/76 12/03/2018 4:29 PM CARTON STENCILER Pulse 91 12/03/2018 4:29 PM CARTON STENCILER Temperature 36.7 ??C (98 ??F) 12/03/2018 4:29 PM CARTON STENCILER Respiratory Rate 16 12/03/2018 4:29 PM CARTON STENCILER Oxygen Saturation 95% 12/03/2018 4:29 PM CARTON STENCILER Inhaled Oxygen Concentration - - Weight 76.7 kg (169 lb) 12/03/2018 4:29 PM CARTON STENCILER Height 170.2 cm (5' 7 ) 12/03/2018 4:29 PM CARTON STENCILER Body Mass Index 26.47 12/03/2018 4:29 PM CARTON STENCILER documented in this encounter Functional Status Functional [...] Percocet as needed pain control adequate home wghvb-gl-zqonir exercises helping. Heart rate and blood pressure [...] 2,000 Units by mouth once daily ??? [place]-3 Fatty Acids (FISH OIL) 1000 MG capsule [...] of education: 12 Occupational History ??? [employer] Social History Main Topics ??? Smoking [...] ON PATIENT'S HEALTH DISCUSSED. Yosvany Gonsalez MD ON STENCILER documented in this encounter Plan of Treatment [...] health documented in this encounter Care Teams Entrepreneurial Finance Professor Relationship Specialty Start Date End Date Yosvany Gonsalez MD [address] [phone] PCP - General Internal Medicine 04/08/13 09/03/19 documented as of this encounter
--- OUTSIDE RECORDS SUMMARY | 2024-11-02 09:06 | XMS_ITS | Encounter Summary ---
Author Organization [facility] Address [address] [place] [address] Care Team Providers Care Gin Operator Name Role Phone Yosvany Gonsalez MD Primary Care Provider [phone] Reason for Visit * Reason Onset Date Comments MEDICATION REFILL 10/02/2018 Encounter Details Date Type Department Care Team (Late st Contact Info) Description 10/02/2018 Refill [facility] Medical [facility] - Family Medicine [address] [phone] Yosvany Gonsalez MD [address] [place] [phone] MEDICATION REFILL Social History Tobacco Use Types [...] on filedocumented in this encounter Care Teams Gin Operator Relationship Specialty Start Date End Date Yosvany Gonsalez MD [address] [place] [address] [place] [phone] PCP - General Internal Medicine 04/08/13 09/03/19 documented as of this encounter
--- OUTSIDE RECORDS SUMMARY | 2024-11-02 09:06 | XMS_ITS | Encounter Summary ---
Author Organization [facility] Address [address] [place] [address] Care Team Providers Care Printed Circuit Photographer Name Role Phone Yosvnay Gonsalez MD Primary Care Provider [phone] Reason for Visit * Reason Onset Date Comments MEDICATION REFILL 10/03/2018 Encounter Details Date Type Department Care Team (Late st Contact Info) Description 10/03/2018 Refill [facility] Medical [facility] - Family Medicine [address] [place] [phone] Yosvany Gonsalez MD [address] [place] [phone] MEDICATION REFILL Social History Tobacco Use Types [...] on filedocumented in this encounter Care Teams Printed Circuit Photographer Relationship Specialty Start Date End Date Yosvany Gonsalez MD [address] [place] [phone] PCP - General Internal Medicine 04/08/13 09/03/19 documented as of this encounter
--- OUTSIDE RECORDS SUMMARY | 2024-11-02 09:06 | XMS_ITS | Encounter Summary ---
Author Organization [facility] Address [address] [place] [address] Care Team Providers Care Ocean Export Coordinator Name Role Phone Yosvany Gonsalez MD Primary Care Provider [phone] Reason for Visit * Reason Onset Date Comments Medication Issue 10/19/2018 Encounter Details Date Type Department Care Team (Late st Contact Info) Description 10/19/2018 Telephone [facility] - Family Medicine [address] [phone] Yosvany Gonsalez MD [address] [place] [phone] Medication Issue Social History Tobacco Use Types [...] CST CALLED in per protocol/sent to [facility] MOLDING MACHINE OPERATOR * Telephone Encounter - Olga Lidia Giles - 10/19/2018 2:04 PM CST Brand name of the Vytorin. Must be brand name only. MOLDING MACHINE OPERATOR documented in this encounter Plan of Treatment Not on file documented as of this encounter Visit Diagnoses Not on filedocumented in this encounter Care Teams Ocean Export Coordinator Relationship Specialty Start Date End Date Yosvany Gonsalez MD [address] [phone] PCP - General Internal Medicine 04/08/13 09/03/19 documented as of this encounter
--- OUTSIDE RECORDS SUMMARY | 2024-11-02 09:06 | XMS_ITS | Encounter Summary ---
Author Organization [facility] Address [address] [place] [address] Care Team Providers Care Pressfitter Name Role Phone Yosvany Gonsalez MD Primary Care Provider [phone] Reason for Visit * Reason Comments Comprehensive Chronic Disease Evaluation Medication Check Hyperlipidemia lab results Encounter Details Date Type Department Care Team (Late st Contact Info) Description 04/26/2017 3:45 PM CDT Office Visit [facility] - Family Medicine [address], [facility] [place] [address] Yosvany Gonsalez MD [address] [place] [address] [place] [address] Annual physical exam (Primary Dx); [...] 81 mg by mouth once daily ??? [place]-3 Fatty Acids (FISH OIL) 1000 MG capsule [...] of education: 12 Occupational History ??? [employer] Social History Main Topics ??? Smoking status: [...] cells/uL Gran 49 % Lymph 36.9 % [place] 11.7 % Eos 1.2 % Baso 1.2 [...] in 1 year with comprehensive studies from [employer]. Yosvany Gonsalez MD documented in this encounter [...] (pediatric) documented in this encounter Care Teams Pressfitter Relationship Specialty Start Date End Date Yosvany Gonsalez MD [address] [place] [phone] PCP - General Internal Medicine 04/08/13 09/03/19 documented as of this encounter
--- OUTSIDE RECORDS SUMMARY | 2024-11-02 09:06 | XMS_ITS | Encounter Summary ---
Author Organization [facility] Address [address] [facility] [place] [address] Care Team Providers Care Electrical Appliance Repairer Name Role Phone Yosvany Gonsalez MD Primary Care Provider [phone] Reason for Visit * Reason Onset Date Comments Medication Problem 01/02/2018 Encounter Details Date Type Department Care Team (Late st Contact Info) Description 01/02/2018 Telephone [facility] Medical [facility] - Family Medicine [address] [phone] Yosvany Gonsalez MD [address] [place] [address] Medication Problem Social History Tobacco [...] follow if PA needs to be completed IFED REFRIGERATION OPERATOR * Telephone Encounter - Yosvany Gonsalez MD - 01/02/2018 5:09 PM CST Let him know we can try, if insurance refuses we may not have any other option but to switch him toa different statin, we can try and we can go from there. IFED REFRIGERATION OPERATOR * Telephone Encounter - Wilma Lomeli LPN [...] other cholesterol medications in chart Please advise. IFED REFRIGERATION OPERATOR documented in this encounter Plan of Treatment Not on file documented as of this encounter Visit Diagnoses Not on filedocumented in this encounter Care Teams Electrical Appliance Repairer Relationship Specialty Start Date End Date Yosvany Gonsalez MD [address] [place] [phone] PCP - General Internal Medicine 04/08/13 09/03/19 documented as of this encounter
--- OUTSIDE RECORDS SUMMARY | 2024-11-02 09:06 | XMS_ITS | Encounter Summary ---
Author Organization [facility] Address [address] [place] [address] Care Team Providers Care Accordion Maker Name Role Phone Yosvany Gonsalez MD Primary Care Provider [phone] Reason for Visit * Auth/Cert Specialty Diagnoses [...] Expiration Date Visits Re quested Visits Authorized [id number] 1 1 Encounter Details Date Type Department Care Team (Late st Contact Info) Description 10/02/2018 12:40 PM CHEF MANAGER Anesthesia Event [facility] - Periop 1 [place] [address] Addison Hicks MD 2 [facility] [place] [address] Elsa Alexandra, GARDEN CONSULTANT-LOCK INSTALLER [address] [place] [address] Anesthesia Record Procedure Summary Procedure Name Responsible [...] العراقي APRN-CRNA 10/02/18 1722 by Anupam Valdez GARDEN CONSULTANT-GEOGRAPHIC INFORMATION SYSTEMS DIRECTOR Procedural Site (Incision) 10/02/18; 1616; Neck; 10/03/18; [...] recall Patient Disposition: Release from Anesthesia Care MANAGER documented in this encounter Consult Notes * [...] Name 09/25/18 1127 HGB 14.8 HCT 43.6 MANAGER documented in this encounter Miscellaneous Notes * Anesthesia Transfer of Care - Rasheed Abraham APRN-GEOGRAPHIC INFORMATION SYSTEMS DIRECTOR - 10/02/2018 5:31 PM CST ANESTHESIA TRANSFER [...] report from the receiving PACUteam. SALVADOR Marin MANAGER documented in this encounter Plan of [...] prophylaxis, Pre-op $ Given 10/02/2018 12:40 PM CHEF MANAGER 2 g cisatracurium (NIMBEX) injection PRN, Starting on Mon10/02/18 at 1255, Until Mon10/02/18 at 1731, Anesthesia Intra-op $ Given 10/02/2018 2:48 PM CHEF MANAGER 2 mg $ Given 10/02/2018 2:15 PM CHEF MANAGER 4 mg $ Given 10/02/2018 1:30 PM CHEF MANAGER 4 mg dexamethasone (DECADRON) injection PRN, Nausea/Vomiting, Starting on Mon10/02/18 at 1250, Until Mon10/02/18 at 1731, Anesthesia Intra-op $ Given 10/02/2018 12:50 PM CHEF MANAGER 8 mg glycopyrrolate (ROBINUL) injection PRN, Starting on Mon10/02/18 at 1710, Until Mon10/02/18 at 1731, Anesthesia Intra-op $ Given 10/02/2018 5:10 PM CHEF MANAGER 0.2 mg lactated ringers infusion at 20 mL/hr, Intravenous, PRE-OP CONTINUOUS, Starting on Mon10/02/18 at 1000, Until Mon10/02/18 at 1857, Pre-op $ New Bag/Syringe 10/02/2018 4:35 PM CHEF MANAGER $ New Bag/Syringe 10/02/2018 1:15 PM CHEF MANAGER $ New Bag/Syringe 10/02/2018 10:19 AM CHEF MANAGER 20 mL /hr lidocaine (XYLOCAINE) 2 % injection PRN, Starting on Mon10/02/18 at 1247, Until Mon10/02/18 at 1731, Anesthesia Intra-op $ Given 10/02/2018 12:47 PM CHEF MANAGER 50 mg neostigmine (PROSTIGMIN/BLOXIVERZ) injection PRN, Starting on Mon10/02/18 at 1710, Until Mon10/02/18 at 1731, Anesthesia Intra-op $ Given 10/02/2018 5:10 PM CHEF MANAGER 1.5 mg ondansetron (ZOFRAN) injection PRN, Nausea/Vomiting, Starting on Mon10/02/18 at 1247, Until Mon10/02/18 at 1731, Anesthesia Intra-op $ Given 10/02/2018 12:47 PM CHEF MANAGER 4 mg phenylephrine 40 mcg/ml custom syringe PRN, Starting on Mon10/02/18 at 1251, Until Mon10/02/18 at 1731, Anesthesia Intra-op $ Given 10/02/2018 3:30 PM CHEF MANAGER 100 mcg $ Given 10/02/2018 12:51 PM CHEF MANAGER 100 mcg propofol (DIPRIVAN) injection PRN, Starting on Mon10/02/18 at 1247, Until Mon10/02/18 at 1731, Anesthesia Intra-op $ Given 10/02/2018 12:47 PM CHEF MANAGER 200 mg succinylcholine (ANECTINE) injection PRN, Starting on Mon10/02/18 at 1247, Until Mon10/02/18 at 1731, Anesthesia Intra-op $ Given 10/02/2018 12:47 PM CHEF MANAGER 100 mg SUFentanil (SUFENTA) injection PRN, Starting on Mon10/02/18 at 1247, Until Mon10/02/18 at 1731, Anesthesia Intra-op $ Given 10/02/2018 3:50 PM CHEF MANAGER 2 mcg $ Given 10/02/2018 3:45 PM CHEF MANAGER 2 mcg $ Given 10/02/2018 3:40 PM CHEF MANAGER 2 mcg documented in this encounter Care Teams Accordion Maker Relationship Specialty Start Date End Date Yosvany Gonsalez MD [address] [place] [phone] PCP - General Internal Medicine 04/08/13 09/03/19 documented as of this encounter
--- OUTSIDE RECORDS SUMMARY | 2024-11-02 09:06 | XMS_ITS | Encounter Summary ---
Author Organization [facility] Address [address] [place] [address] Care Team Providers Care Ground Crewman Aircraft Support Name Role Phone Yosvany Gonsalez MD Primary Care Provider [phone] Reason for Visit * Reason Comments Pre-op Clearance partial knee replace ment Encounter Details Date Type Department Care Team (Latest Contact Info) Description 12/14/2016 3:00 PM BLEACHER LARD Office Visit [facility] - Family Medicine [address] [place] [address], [place] [address] Yosvany Gonsalez MD [address] [place] [address] Pre-operative clearance (Primary Dx); Mixed [...] Comments Blood Pressure 155/90 12/14/2016 3:22 PM BLEACHER LARD Pulse 73 12/14/2016 3:22 PM BLEACHER LARD Temperature 36.1 ??C (97 ??F) 12/14/2016 3:22 PM BLEACHER LARD Respiratory Rate 16 12/14/2016 3:22 PM BLEACHER LARD Oxygen Saturation 99% 12/14/2016 3:22 PM BLEACHER LARD Inhaled Oxygen Concentration - - Weight 80.3 kg (177 lb) 12/14/2016 3:22 PM BLEACHER LARD Height 167.6 cm (5' 6 ) 12/14/2016 3:22 PM BLEACHER LARD Body Mass Index 28.57 12/14/2016 3:22 PM BLEACHER LARD documented in this encounter Progress Notes * [...] 81 mg by mouth once daily ??? [place]-3 Fatty Acids (FISH OIL) 1000 MG capsule [...] of education: 12 Occupational History ??? [employer] Social History Main Topics ??? [...] CONS PT CLEARLY WANTS TO PROCEED Yosvany Gonsalze MD CHER LARD documented in this encounter Plan of Treatment Not on file documented as of this encounter Visit Diagnoses Diagnosis Pre-operative clearance- Primary Preoperative examination, unspecified Mixed hyperlipidemia Primary osteoarthritis of left knee Primary localized osteoarthrosis, lower leg RANDY on CPAP Obstructive sleep apnea (adult) (pediatric) Cigarette nicotine dependence without complication Tobacco use disorder documented in this encounter Care Teams Ground Crewman Aircraft Support Relationship Specialty Start Date End Date Yosvany Gonsalez MD [address] [place] [phone] PCP - General Internal Medicine 04/08/13 09/03/19 documented as of this encounter
--- OUTSIDE RECORDS SUMMARY | 2024-11-02 09:06 | XMS_ITS | Encounter Summary ---
Author Organization [facility] Address [address] [place] [address] Care Team Providers Care Wood Calker Name Role Phone GonsalezSalbador ortizgretchen Marcial MD Primary Care Provider [phone] Reason for Visit * Reason Comments Cough onset 3 wk, producti ve, sneezing, ear itching. Encounter Details Date Type Department Care Team (Late st Contact Info) Description 03/03/2018 8:00 AM CDT Office Visit [facility] [address] [place] [phone] Provider1, [facility] Cough (Primary Dx); COPD exacerbation [...] Body Mass Index 27.41 10/24/2017 4:19 PM QUALITY ASSURANCE NURSE documented in this encounter Patient Instructions * [...] quit. For support and more information: ?? [email or web address] Phone: Web Address: [email or web address] ?? Be aware of and avoid anything [...] refuse treatment. The above information is an public health aide only. It is not intended as medical advice for individual conditions or treatments. Talk to your doctor, nurse or pharmacist before following any medical regimen to see if it is safe and effective for you. ?? 2017 [employer] Information is for End User's use only and may not be sold, redistributed or otherwise used for commercial purposes. All illustrations and images included in CareNotes?? are the copyrighted property of [employer], [employer]. or [employer]. documented in this encounter Progress Notes * [...] 81 mg by mouth once daily ??? [place]-3 Fatty Acids (FISH OIL) 1000 MG capsule [...] exacerbation documented in this encounter Care Teams Wood Calker Relationship Specialty Start Date End Date Yosvany Gonsalez MD [address] [place] [phone] PCP - General Internal Medicine 04/08/13 09/03/19 documented as of this encounter
--- OUTSIDE RECORDS SUMMARY | 2024-11-02 09:06 | XMS_ITS | Encounter Summary ---
Author Organization [facility] Address [address] [place] [address] Care Team Providers Care Mother Superior Name Role Phone Yosvany Gonsalez MD Primary Care Provider [phone] Reason for Visit * Reason Onset Date Comments MEDICATION REFILL 10/03/2018 Encounter Details Date Type Department Care Team (Late st Contact Info) Description 10/03/[address] [facility] - Family Medicine [address] [place] [phone] Yosvany Gonsalez MD [address] [place] [phone] MEDICATION REFILL Social History Tobacco Use Types [...] verbally cancel the 30 day supply at [facility] and send to [facility] per patient's 's request NKEEPER documented in this encounter Plan of Treatment Not on file documented as of this encounter Visit Diagnoses Not on filedocumented in this encounter Care Teams Mother Superior Relationship Specialty Start Date End Date Yosvany Gonsalez MD [address] [place] [phone] PCP - General Internal Medicine 04/08/13 09/03/19 documented as of this encounter
--- OUTSIDE RECORDS SUMMARY | 2024-11-02 09:06 | XMS_ITS | Encounter Summary ---
Author Organization [facility] Address [address] [place] [address] Care Team Providers Care Medical Records Coder Name Role Phone Yosvany Gonsalez MD Primary Care Provider [phone] Reason for Visit * Reason Comments Pre-op Clearance neck fusion surgery Encounter Details Date Type Department Care Team (Late st Contact Info) Description 09/21/2018 4:00 PM FLOOR SWEEPER Office Visit [facility] - Family Medicine [address], [facility] [address] Yosvany Gonsalez MD [address] [place] [address] Pre-operative clearance (Primary Dx); Mixed [...] Comments Blood Pressure 150/78 09/21/2018 4:19 PM FLOOR SWEEPER Pulse 80 09/21/2018 4:19 PM FLOOR SWEEPER Temperature 36.3 ??C (97.3 ??F) 09/21/2018 4:19 PM CS T Respiratory Rate 16 09/21/2018 4:19 PM FLOOR SWEEPER Oxygen Saturation 95% 09/21/2018 4:19 PM FLOOR SWEEPER Inhaled Oxygen Concentration - - Weight 79.1 kg (174 lb 6.4 oz) 09/21/2018 4:19 P M FLOOR SWEEPER Height 170.2 cm (5' 7 ) 09/21/2018 4:19 PM FLOOR SWEEPER Body Mass Index 27.31 09/21/2018 4:19 PM FLOOR SWEEPER documented in this encounter Progress Notes * [...] 81 mg by mouth once daily ??? [place]-3 Fatty Acids (FISH OIL) 1000 MG capsule [...] of education: 12 Occupational History ??? [employer] Social History Main Topics ??? Smoking status: [...] CLEARLY WANTS TO PROCEED Yosvany Gonsalez MD R SWEEPER documented in this encounter Plan of Treatment [...] documented in this encounter Care Teams Medical Records Coder Relationship Specialty Start Date End Date Yosvany Gonsalez MD [address] [phone] PCP - General Internal Medicine 04/08/13 09/03/19 documented as of this encounter
--- OUTSIDE RECORDS SUMMARY | 2024-11-02 09:06 | XMS_ITS | Encounter Summary ---
Author Organization [facility] Address [address] [place] [address] Care Team Providers Care Remelt Furnace Expediter Name Role Phone Yosvany Gonsalez MD Primary Care Provider [phone] Encounter Details Date Type Department Care Team (Latest Contact Info) Description 09/06/2018 4:11 PM CDT - 09/06/2018 11:59 PM CDT Hospital Encounter [facility] - Laboratory 1 [place] [address] Chris Kay MD [address] [place] [phone] Discharge Disposition: Home or Self Care Social [...] Take 2,000 Units by mouth once daily [place]-3 Fatty Acids (FISH OIL) 1000 MG capsule Take by mouth once daily oxyCODONE-acetaminophe n (PERCOCET) 7.5-325 MG tablet Take 1-2 tablets by mouth every 4 hours as needed for Pain (for moderate to severe pain) 120 tablet 10/02/2018 vitamin E (TOCOPHERYL) 400 UNIT tablet Take 400 Units by mouth once daily albuterol HFA (PROVENTIL;VENTOLIN;FL OAIR) 108 (90 BASE) MCG/ACT inhaler Inhale [...] Nicotine Urine <2 ng/mL 09/10/2018 11:[address] [facility]) Comment: Consistent with abstinence from nicotine-containing products for at least 2 weeks. INTERPRETIVE INFORMATION: Nicotine and Metabolites, ?Urine, Quantitative Methodology: Quantitative Liquid Chromatography-Tandem Mass Spectrometry Positive cutoff: Nicotine ??2 ng/mL Cotinine ??5 ng/mL 7-NC-Kppnrizr 50 ng/mL Nornicotine ? 2 ng/mL Anabasine [...] laboratory. Test developed and characteristics determined by [facility]. See Compliance Statement B: [employer] Performed by [facility], [address] [place] [address] [email or web address], Thomas Resendiz MD, Lab. Director Nornicotine Urine <2 ng/mL 018 11:35 PM CAREER SERVICES MANAGER [facility] ([facility]) 3-Hydroxy Cotinine Urine <50 ng/mL 09/10/2018 11:35 PM CAREER SERVICES MANAGER [facility] ([facility]) Cotinine Urine <5 ng/mL 09/10/2018 11:35 PM CAREER SERVICES MANAGER [facility] ([facility]) Anabasine Urine <3 ng/mL 8 11:35 PM CAREER SERVICES MANAGER [facility] ([facility]) Urine URINE / Unknown Collection / Unknown 09/06/2018 4:15 PM CDT 09/06/2018 4:18 PM CDT Chris Kay MD LAB - URINE CHEMISTR Y ORDERABLES [facility] ([facility]) [address] documented in this encounter Visit Diagnoses Diagnosis H/O nicotine dependence- Primary Personal history of tobacco use, presenting hazards to health documented in this encounter Care Teams Remelt Furnace Expediter Relationship Specialty Start Date End Date Yosvany Gonsalez MD [address] [place] [phone] PCP - General Internal Medicine 04/08/13 09/03/19 documented as of this encounter
--- OUTSIDE RECORDS SUMMARY | 2024-11-02 09:06 | XMS_ITS | Encounter Summary ---
Author Organization [facility] Address [address] [place] [address] Care Team Providers Care Medical Imaging Tech Name Role Phone Yosvany Gonsalez MD Primary Care Provider Reason for Visit * Reason Onset Date Comments Question 10/04/2018 Encounter Details Date Type Department Care Team (Late st Contact Info) Description 10/04/2018 Telephone [facility] - Family Medicine [address] [phone] Yosvany Gonsalez MD [address] [place] [address] Question Social History Tobacco Use [...] to new pharmacy per request and protocol ERY OPERATOR * Telephone Encounter - Aamir Campbell I - 10/04/2018 3:53 PM CST Vaishali called & reported that Chris is needing the following prescriptions sent in: Vytorin (She would like us to alejandro no generic on this one) Pantoprazole She requested these be faxed to [facility] at ERY OPERATOR documented in this encounter Plan of Treatment Not on file documented as of this encounter Visit Diagnoses Not on filedocumented in this encounter Care Teams Medical Imaging Tech Relationship Specialty Start Date End Date Yosvany Gonsalez MD [address] [place] [phone] PCP - General Internal Medicine 04/08/13 09/03/19 documented as of this encounter
--- OUTSIDE RECORDS SUMMARY | 2024-11-02 09:06 | XMS_ITS | Encounter Summary ---
Author Organization [facility] Address [address] [place] [address] Care Team Providers Care Data Warehouse Developer Name Role Phone Yosvany Gonsalez MD Primary Care Provider [phone] Reason for Visit * Reason Onset Date Comments Medication Issue 10/19/2018 Encounter Details Date Type Department Care Team (Late st Contact Info) Description 10/19/2018 Telephone [facility] - Family Medicine [address] [phone] Yosvany Gonsalez MD [address] [place] [phone] Medication Issue Social History Tobacco Use Types [...] Discussed with patient and alex at ms OGRAPHER MAMMOGRAPHER * Telephone Encounter - Yosvany Gonsalez MD - 10/19/2018 3:05 PM CST Would strongly recommend trying a gentler statin like pravastatin 80 mg daily number 90 with 1 refill and follow-up OGRAPHER MAMMOGRAPHER * Telephone Encounter - Wilma Lomeli LPN - 10/19/2018 2:57 PM CST Patient came in and stated he needed emergency supply for his name brand vytorin. As he was out until his mail order was able to be sent to him. We sent temporary supply to [facility] for him Unfortunately, he stated that it was a 300 dollar per month co-pay with his new insurance. He was the one that asked for the name brand only due to not tolerating the generic (per patient report) [facility] was asking if there was something else the patient could take or if he could do something like lovaza or? Please advise. OGRAPHER MAMMOGRAPHER documented in this encounter Plan of Treatment Not on file documented as of this encounter Visit Diagnoses Not on filedocumented in this encounter Care Teams Data Warehouse Developer Relationship Specialty Start Date End Date Yosvany Gonsalez MD [address] [place] [phone] PCP - General Internal Medicine 04/08/13 09/03/19 documented as of this encounter
--- OUTSIDE RECORDS SUMMARY | 2024-11-02 09:06 | XMS_ITS | Encounter Summary ---
Author Organization [facility] Address [address] [place] [address] Care Team Providers Care Print Manager Name Role Phone Yosvany Gonsalez MD Primary Care Provider [phone] Reason for Visit * Reason Comments Refill Request Encounter Details Date Type Department Care Team (Late st Contact Info) Description 10/19/2017 Refill [facility] - Family Medicine [address] [phone] Yosvany Gonsalez MD [address] [place] [address] Refill Request Social History Tobacco [...] 9:[address] Gonsalez for RF. TECHNOLOGIST documented in this encounter Plan of Treatment Not on file documented as of this encounter Visit Diagnoses Not on filedocumented in this encounter Care Teams Print Manager Relationship Specialty Start Date End Date Yosvany Gonsalez MD [address] [place] [phone] PCP - General Internal Medicine 04/08/13 09/03/19 documented as of this encounter
--- OUTSIDE RECORDS SUMMARY | 2024-11-02 09:06 | XMS_ITS | Encounter Summary ---
Author Organization [facility] Address [address] [place] [address] Care Team Providers Care Streetcar Repairer Helper Name Role Phone Yosvany Gonsalez MD Primary Care Provider [phone] Reason for Visit * Reason Onset Date Comments Medication Request 11/09/2018 Encounter Details Date Type Department Care Team (Late st Contact Info) Description 11/09/2018 Refill [facility] Medical [facility] - Family Medicine [address] [place] [phone] Yosvany Gonsalez MD [address] [place] [phone] Medication Request Social History Tobacco Use Types [...] order pharmacy. He take one at bedtime. STRIPPER documented in this encounter Plan of Treatment Not on file documented as of this encounter Visit Diagnoses Not on filedocumented in this encounter Care Teams Streetcar Repairer Helper Relationship Specialty Start Date End Date Yosvany Gonsalez MD [address] [place] [phone] PCP - General Internal Medicine 04/08/13 09/03/19 documented as of this encounter
--- OUTSIDE RECORDS SUMMARY | 2024-11-02 09:06 | XMS_ITS | Encounter Summary ---
Author Organization [facility] Address [address] [place] [place] [address] Care Team Providers Care Horse Racing Analyst Name Role Phone Sunshine Yosvany Marcial MD Primary Care Provider [phone] Reason for Visit * Reason Comments Sinus Problem x 5 days Runny Nose Cough Encounter Details Date Type Department Care Team (Late st Contact Info) Description 07/26/2019 4:15 PM CDT Office Visit [facility] [facility] [address] [phone] Provider1, [facility] Acute bronchitis, unspecified organism (Primary [...] Patient Instructions * Patient Instructions* Tiffanie Hernandez, PACKING MACHINE PILOT CAN ROUTER-WATER TREATMENT PLANT MECHANIC - 07/26/2019 4:37 PM CDT Images from the original note were not included. Patient Education Acute Bronchitis LICENSED PRACTICAL VOCATIONAL NURSE: Acute bronchitis is swelling and irritation in [...] them during your follow-up visits. ?? Copyright The [employer] 2019 Information is for End User's use only and may not be sold, redistributed or otherwise used for commercial purposes. All illustrations and images included in CareNotes?? are the copyrighted property of [employer]. or Ring The above information is an community organization aide only. It is not intended as [...] 2,000 Units by mouth once daily ??? [place]-3 Fatty Acids (FISH OIL) 1000 MG capsule [...] 0 Patient Instructions Patient Education Acute Bronchitis LICENSED PRACTICAL VOCATIONAL NURSE: Acute bronchitis is swelling and irritation in [...] them during your follow-up visits. ?? Copyright The [employer] 2019 Information is for End User's use only and may not be sold, redistributed or otherwise used for commercial purposes. All illustrations and images included in CareNotes?? are the copyrighted property of [employer] or Ring The above information is an community organization aide only. It is not intended as [...] 2,000 Units by mouth once daily ??? [place]-3 Fatty Acids (FISH OIL) 1000 MG capsule [...] A SCREEN - POINT OF CARE (AMB) [facility] Routine 07/26/2019 4:44 PM CDT Sore throat documented in this encounter Results * STREP A SCREEN - POINT OF CARE (AMB) [facility] (07/26/2019 4:44 PM CDT) Strep A Rapid POCT Negative Negative Strep A Rapid Screen Internal Control POCT Present Throat ENTIRE THROAT (SURFACE REGION OF NECK) / Unknown 07/26/2019 4:44 PM CDT Tiffanie Wilson David PACKING MACHINE PILOT CAN ROUTER-WATER TREATMENT PLANT MECHANIC LAB - POINT OF C ARE ORDERABLES documented in this encounter Visit Diagnoses Diagnosis Acute bronchitis, unspecified organism- Primary Sore throat Acute pharyngitis documented in this encounter Care Teams Horse Racing Analyst Relationship Specialty Start Date End Date Yosvany Gonsalez MD [address] [place] [phone] PCP - General Internal Medicine 04/08/13 09/03/19 documented as of this encounter
--- OUTSIDE RECORDS SUMMARY | 2024-11-02 09:06 | XMS_ITS | Encounter Summary ---
Author Organization [facility] Address [address] [place] [address] Care Team Providers Care Student Recruiter Name Role Phone Yosvany Gonsalez MD Primary Care Provider [phone] Reason for Visit * Reason Onset Date Comments Medication Issue 04/09/2018 Encounter Details Date Type Department Care Team (Late st Contact Info) Description 04/09/2018 Telephone [facility] Medical [facility] - Family Medicine [address] [phone] Yosvany Gonsalez MD [address] [place] [phone] Medication Issue Social History Tobacco Use Types [...] on filedocumented in this encounter Care Teams Student Recruiter Relationship Specialty Start Date End Date Yosvany Gonsalez MD [address] [place] [address] [place] [phone] PCP - General Internal Medicine 04/08/13 09/03/19 documented as of this encounter
--- OUTSIDE RECORDS SUMMARY | 2024-11-02 09:06 | XMS_ITS | Patient Health Summary ---
Author Organization [facility] Address [address] [place] [address] Care Team Providers Care Interlibrary Loan Services Librarian Name Role Phone Addison Joy MD Primary Care Provider [phone] Note from [facility],non-owned Affiliates and Associated Physician Practices is amultiple site organization consisting of ambulatory clinics and hospital sitesin [place], [place], [place] and [place]. This disclosure is being madepursuant to the Care Everywhere program and may not contain all information available regarding this patient. Last updated 18.[facility] Allergies * Morphine(Itching) Medications * [...] 81 mg by mouth once daily * [place]-3 Fatty Acids (FISH OIL) 1000 MG capsule [...] PM CDT Medical Devices Implanted Type Area Enforcement Manager Device Identifier Shelf Expiration Date Model / Serial / Lot Lukas Bone Void .5ml Dbx Algrf Frzdr Ptty - [id number] Implanted:Qty : 1 on 10/02/2018 by Chris Kay MD at [facility] Cervical Musculoskeletal Transplant Foundati 05/25/2020 [id number] / [id number] / Spcr Algrf [id number] Ccs Prll Spne Ayo - [id number] Implanted:Qty : 1 on 10/02/2018 by Chris Kay MD at [facility] Cervical Musculoskeletal Transplant Foundati 06/14/2021 [id number] / [id number] / Description:C6-C7 Graft Bone Vivigen Ayo Cnc Dmnr 1cc - [id number] Implanted:Qty : 1 on 10/02/2018 by Chris Kay MD at [facility] Cervical Lifenet 08/07/2019 BL-1500-0 01 / [id number] / Plate Bnt Grv Prebnt [id number] 1 Lvl 1 - [id number] Implanted:Qty : 1 on 10/02/2018 by Chris Kay MD at [facility] Cervical Synthes Spine 450.552 / [id number] / Description:C6-7 Screw 4.5mm 18mm Spne Crv Ant Slf-Tap Implanted:Qty : 4 on 10/02/2018 by Chris Kay MD at [facility] Cervical Synthes Spine 04.613.66 8 / / Description:C6-7 Spcr Algrf [id number] Prll Spne Crv Ayo - [id number] Implanted:Qty : 1 on 10/02/2018 by Chris Kay MD at [facility] Cervical Musculoskeletal Transplant Foundati 02/07/2021 [id number] / [id number] / Screw 4.5mm 16mm Spne Crv Ant Slf-Tap Implanted:Qty : 4 on 10/02/2018 by Chris Kay MD at [facility] Cervical Synthes Spine 6 / / Description:C3-4 Vectra Plate Implanted:Qty : 1 on 10/02/2018 by Chris Kay MD at [facility] Cervical 4 / [id number] / Procedures * STREP A SCREEN - [...] (AMB) [facility] (07/26/2019 4:44 PM CDT) Pathologist [facility] Strep A Rapid POCT Negative Negative Strep A Rapid Screen Internal Control POCT Present Throat ENTIRE THROAT (SURFACE REGION OF NECK) / Unknown 07/26/2019 4:44 PM CDT Tiffanie Hernandez APRN-SENIOR RD ENGINEER LAB - POINT OF C ARE ORDERABLES * URIC ACID BLOOD (02/15/2019 7:51 AM CDT) Only the most recent of7 resultswithin the time period is included. Uric Acid 6.3 4.0 - 8.0 mg/dL [facility] Comment: Therapeutic target for gout patients: <6.0 mg/dL ?? Test Performed at: [facility] [address] [place], [place] ??[phone] MICHEL LEO DO,MPH 02/15/2019 7:51 AM CDT 02/15/2019 7:52 AM CDT Yosvany Gonsalez MD LAB - CHEMISTRY VIVIANA ADAMS Performing Organization Address [facility] Co de Phone Number [facility] [address] [place] [address] * HEMOGLOBIN A1C (02/15/2019 7:51 AM CDT) [...] diagnosis of diabetes in children. According to [place] Diabetes Association (ADA) guidelines, hemoglobin A1c <7.0% represents optimal control in non- diabetic patients. Different metrics may apply to specific patient populations. Standards of Medical Care in Diabetes(ADA). ?? REPORT COMMENT: FASTING:YES Test Performed at: [facility] [address] [place], [place] ??[phone] MICHEL LEO DO,MPH 02/15/2019 7:51 AM CDT 02/15/2019 7:52 AM CDT Yosvany Gonsalez MD LAB - CHEMISTRY VIVIANA ADAMS Performing Organization Address City/[facility]/ZIP Co de Phone Number [facility] [address] [place] [address] * CBC WITH DIFFERENTIAL (02/15/2019 7:51 AM [...] 1.2 % [facility] Comment: Test Performed at: [facility] [address] [place], [place] ??[phone] MICHEL LEO DO,MPH 02/15/2019 7:51 AM CDT 02/15/2019 7:52 AM CDT Yosvany Gonsalez MD LAB - HEMATOLOGY ORD ERABLES [facility] [address] [place] [address] * COMPREHENSIVE METABOLIC PANEL (02/15/2019 7:51 AM CDT) Only the most recent of9 resultswithin the time period is included. Pathologist [facility] Glucose 95 65 - 99 mg/dL [facility] Comment: ? Fasting reference interval BUN 14 7 - 25 mg/dL [facility] Creatinine 0.74 0.70 - 1.25 mg/dL [facility] Comment: For patients >49 years of age, the reference limit for Creatinine is approximately 13% higher for people identified as -[place]. eGFR by MDRD 97 > OR = [...] 46 U/L [facility] Comment: Test Performed at: [facility] [address] [place] [address] ??[phone] MICHEL LEO DO,MPH 02/15/2019 7:51 AM CDT 02/15/2019 7:52 AM CDT Yosvany Gonsalez MD LAB - CHEMISTRY VIVIANA ADAMS [facility] [address] [place] [address] * PROSTATE SPECIFIC ANTIGEN SCREEN (02/15/2019 7:51 AM CDT) Only the most recent of6 resultswithin the time period is included. PSA 0.6 < OR = 4.0 ng/mL [facility] Comment: The total PSA value from this assay system is standardized against the WHO standard. The test result will be approximately 20% lower when compared to the equimolar-standardized total PSA ([facility] [place]). Comparison of serial PSA results should be interpreted with this fact in mind. This test was performed using the Siemens chemiluminescent method. Values obtained from different assay methods cannot be used interchangeably. PSA levels, regardless of value, should not be interpreted as absolute evidence of the presence or absence of disease. Test Performed at: [facility] [address] [place], [place] ??[address] MICHEL LEO DO,MPH 02/15/2019 7:51 AM CDT 02/15/2019 7:52 AM CDT Yosvanygretchen Gonsalez MD LAB - CHEMISTRY VIVIANA ADAMS Performing Organization Address [facility] Co de Phone Number [facility] [phone] [place] [address] * VITAMIN B12 (02/15/2019 7:51 AM CDT) [facility] Vitamin B12 240 200 - 1100 pg/mL [...] pg/mL will have symptoms. Test Performed at: [facility], [place] ??[address] MICHEL LEO DO,MPH 02/15/2019 7:51 AM CDT 02/15/2019 7:52 AM CDT Yosvanygretchen Gonsalez MD LAB - CHEMISTRY VIVIANA ADAMS Performing Organization Address [facility] Co de Phone Number [facility] [phone] [place] [address] * TSH (02/15/2019 7:51 AM CDT) Only the most recent of8 resultswithin the time period is included. [facility] TSH 1.14 0.40 - 4.50 mIU/L [facility] Comment: Test Performed at: [place] ??[address] MICHEL LEO DO,MPH 02/15/2019 7:51 AM CDT 02/15/2019 7:52 AM CDT Yosvanygretchen Gonsalez MD LAB - CHEMISTRY VIVIANA ADAMS Performing Organization Address [facility] Co de Phone Number [facility] [phone] [place] [address] * LIPID PROFILE (02/15/2019 7:51 AM CDT) Only the most recent of8 resultswithin the time period is included. [facility] Cholesterol 159 <200 mg/dL [facility] HDL Cholesterol [...] of LDL-C. Armani SS et al. RODOLFO. 2013;310(17): 1708-3081 (http://education.[employer]/faq/PYT811) CHOL/HDLC RATIO 3.3 <5.0 (calc) [facility] Non HDL Cholesterol 111 <130 mg/dL (calc) [facility] Comment: For patients with diabetes plus 1 major ASCVD risk factor, treating to a non-HDL-C goal of <100 mg/dL (LDL-C of <70 mg/dL) is considered a therapeutic option. Test Performed at: [facility] [address] [place], [place] ??[phone] MICHEL LEO DO,MPH 02/15/2019 7:51 AM CDT 02/15/2019 7:52 AM CDT Yosvany Gonsalez MD LAB - CHEMISTRY VIVIANA ADAMS [facility] Organization Address City/State/ZIP Co de Phone Number [facility] [address] [place] [address] * CARDIAC RHYTHM STRIP ORDER (10/04/2018 2:06 PM [facility]) Narrative 10/04/2018 2:06 PM [facility] Ordered by an unspecified provider. Scanned Document CARDIAC SERVICES ORD ERABLES * XR CERVICAL SPINE 2 OR 3 VW [id number] (10/02/2018 5:55 PM [facility]) Anatomical Region Laterality Modality Spine Radiographic Leola ging 10/02/2018 6:04 PM [facility] Impressions 10/02/2018 6:05 PM [facility] Anterior fusion hardware is in place at C6-C7 with intervertebral graft. Bones and hardware are in good alignment at conclusion of exam. Narrative 10/02/2018 6:05 PM [facility] PROCEDURE: XR CERVICAL SPINE 2 OR 3VW [...] + MICRO EXAM (ILL) (10/02/2018 3:14 PM [facility]) Only the most recent of2 resultswithin the time period is included. Case Report Surgical Pathology Report ? Case: [id number] ? Authorizing Provider: ??Chris Kay MD ?Collected: [...] [facility] Performed By Performed by [facility] [place]. [address] 10/05/2018 9:19 AM [facility] Embedded Images 10/05/2018 9:19 AM [facility] Pathology/Cytol ogy SPECIMEN FROM INTERVERTEBRAL DISC / Unknown 10/02/2018 3:14 PM [facility] 10/03/2018 6:56 AM [facility] Chris Kay MD LAB - PATHOLOGY/CYTO LOGY ORDERABLES Performing Organization Address City/State/[facility] Co de Phone Number [facility] [address] [place], [place] [address] * BLOOD TYPE VERIFICATION (10/02/2018 10:17 AM [facility]) ABO O 10/02/2018 11:07 AM [facility] Rh Type Positive 10/02/2018 11:07 AM [facility] Blood Bank BLOOD SPECIMEN / Unknown Lab Venipuncture / Unknown 10/02/2018 10:17 AM [facility] 10/02/2018 10:38 AM [facility] Chris Kay MD LAB - BLOOD BANK ORD ERABLES Performing Organization Address [facility] Co de Phone Number [facility]OD BANK [address] * MRSA + SA DNA PCR PANEL (09/25/2018 11:27 AM [facility]) MRSA DNA by PCR Negative Negative 09/25/2018 12:47 PM [facility] Staph aureus PCR Negative Negative 09/25/2018 12:47 PM [facility] Microbiology SPECIMEN FROM NASAL FOSSAE / Unknown Collection / Unknown 09/25/2018 11:27 AM [facility] 09/25/2018 11:34 AM [facility] Narrative [facility] - 09/25/2018 12:47 PM [facility] Staphylococcus aureus (SA) target DNA not detected. [...] - MICROBIOLOGY O RDERABLES Performing Organization Address [facility] de Phone Number [facility] [address] * TYPE + SCREEN PANEL (09/25/2018 11:27 AM [facility]) ABO O 09/25/2018 12:47 PM [facility] Rh Type Positive 09/25/2018 12:47 PM [facility] Comment:History checked. Col lect retype. Antibody Screen Negative 09/25/2018 12:47 PM [facility] Blood Bank BLOOD SPECIMEN / Unknown Venipuncture / Unknown 09/25/2018 11:27 AM [facility] 09/25/2018 11:34 AM [facility] Ke Browne MD LAB - BLOOD BANK ORD ERABLES Performing Organization Address City/[facility] Co de Phone Number [facility] [address] * HGB HCT PANEL (09/25/2018 11:27 AM [facility]) Hemoglobin 14.8 13.7 - 17.5 gm/dL 09/25/2018 11:39 AM [facility] Hematocrit 43.6 40.1 - 51.0 % 09/25/2018 11:39 AM [facility] Blood BLOOD SPECIMEN / Unknown Venipuncture / Unknown 09/25/2018 11:27 AM [facility] 09/25/2018 11:34 AM [facility] Ke Browne MD LAB - HEMATOLOGY ORD ERABLES Performing Organization Address City/[facility]/ZIP Co de Phone Number [facility] [address] * EKG 12-LEAD (09/25/2018 11:22 AM [facility]) Pathologist [facility] Ventricular Rate 60 BPM [facility] Atrial Rate 60 BPM [facility] P-R Interval 180 ms [facility] QRS Duration ms 86 ms [facility] Q-T Interval ms 412 ms [facility] QTC Calculation (Bezet) 412 ms [facility] Calculated P [place] 57 degrees [facility] Calculated R [place] 34 degrees [facility] Calculated T [place] 53 degrees [facility] Interpretation EKG Normal sinus rhythm Normal ECG When compared with ECG of 16-NOV-2015 07:47, changes in the configuration of Precordial leads is probably due to lead placement differences Confirmed by MD JOHN, [facility] ([id number]) on 09/26/2018 10:40:54 AM [facility] 09/25/2018 11:2 2 AM [facility] 09/26/2018 10:40 AM [facility] Ke Browne MD ECG ORDERABLES Performing Organization Address City/[facility]/ZIP Co de Phone Number [facility] * NICOTINE + METABOLITES URINE (09/06/2018 4:15 PM CDT) Nicotine Urine <2 ng/mL 09/10/2018 11:35 PM [facility] [employer] ([facility]) Comment: Consistent with abstinence from nicotine-containing products for at least 2 weeks. INTERPRETIVE INFORMATION: Nicotine and Metabolites, ?Urine, Quantitative Methodology: Quantitative Liquid Chromatography-Tandem Mass Spectrometry Positive cutoff: Nicotine ??2 ng/mL Cotinine ??5 ng/mL [id number]-CR-[id number] 50 ng/mL Nornicotine ? 2 ng/mL Anabasine [...] laboratory. Test developed and characteristics determined by [employer] See Compliance Statement B: [employer]/CS Performed by [employer] [address] [place] [id number] [email or web address], Thomas Resendiz MD, Lab. Director Nornicotine Urine <2 ng/mL 018 11:35 PM [facility] ([facility]) 3-Hydroxy Cotinine Urine <50 ng/mL 09/10/2018 11:35 PM [facility] [employer] ([facility]) Cotinine Urine <5 ng/mL 09/10/2018 11:35 PM [facility] [employer] ([facility]) Anabasine Urine <3 ng/mL 8 11:35 PM [facility] ([facility]) Urine URINE / Unknown Collection / Unknown 09/06/2018 4:15 PM CDT 09/06/2018 4:18 PM CDT Chris Kay MD LAB - URINE CHEMISTR Y ORDERABLES [facility] ([facility]) [address] [place] [address], [facility] * T4 FREE (04/16/2018 7:47 AM CDT) Only the most recent of2 resultswithin the time period is included. T4 Free 1.2 0.8 - 1.8 ng/dL [facility] Comment: Test Performed at: [facility] [address] ??[phone] MICHEL LEO DO,MPH Blood BLOOD SPECIMEN / Unknown 04/16/2018 7:47 AM CDT 04/16/2018 7:48 AM CDT Yosvany Gonsalez MD LAB - CHEMISTRY VIVIANA ADAMS [facility] [address] [place] [address] * INFLUENZA A+B - POINT OF CARE (AMB) (10/24/2017 4:39 PM [facility]) Pathologist [facility] Influenza A Antigen Rapid Negative Negative Influenza B Antigen Rapid Negative Negative Influenza Internal Control present NEGATIVE - POSITIVE Influenza Lot Number [id number] Influenza Expiration Date 05/2019 Other SPECIMEN FROM NASOPHARYNGEAL STRUCTURE / Unknown 10/24/2017 4:39 PM [facility] Rahel Feliz PA-C LAB - POINT OF CARE ORDERABLES * ECHOCARDIOGRAM STRESS Walking Stress ECHO (11/16/2015 5:06 PM [facility]) Narrative [facility] CARDIOLOGY - 11/16/2015 5:06 PM [facility] [address] [place], [place] [id number] Exercise Stress Echocardiography Patient: MANDIE COTTER MR #: [id number] : 1955 Age: 60 years Gender: Male Study date: 16-Nov-2015 Status: Outpatient Room: - Ordering Physician: ??Yoly Trinidad DO, [facility] Referring Physician: ??Yosvany Gonsalez MD Salesperson Fashion Accessories: ??Yoly Trinidad DO, MSEE Salesperson Fashion Accessories: ??[facility] Heart and Commercial Loan Administrator: ??Obdulia Bowden [facility] Clinical question: Atypical Chest Pain [...] 17:09:40 Procedure Note Unknown, Provider - 11/16/2015 [facility] [address] [place] [address] Exercise Stress Echocardiography Patient: MANDIE COTTER MR #: [id number] : 1955 Age: 60 years Gender: Male Study date: 16-Nov-2015 Status: Outpatient Room: - Ordering Physician: Yoly Trinidad DO, MSEE Referring Physician: Yosvany Gonsalez MD Salesperson Fashion Accessories: Yoly Trinidad DO, MSEE Salesperson Fashion Accessories: [facility] Commercial [facility] Administrator: Obdulia Bowden RDCS Clinical question: Atypical Chest [...] * ECG STRESS TRACING (11/16/2015 7:46 AM [facility]) [facility] Signature Stress Test Summary For full formatted [...] achieved 14 METS Confirmed by Yoly Trinidad ([id number]) on 11/16/2015 9:12:22 AM Attending Physician: KWADWO ??DOYOLY Referred By: OLI ?Overread By: Yoly Trinidad [facility] 11/16/2015 7:46 AM [facility] 11/16/2015 9:12 AM [facility] Yoly Trinidad DO CARDIAC SERVICES ORD ERABLES [facility] * XR CHEST PA AND LATERAL (10/15/2014 4:58 PM [facility]) Anatomical Region Laterality Modality Chest Radiographic Leola ging 10/15/2014 5:06 PM [facility] Narrative 10/15/2014 5:43 PM [facility] TWO VIEWS OF THE CHEST October 15, [...] PM CDT Narrative Resulting Agency Comment [facility] [address] ??Critical access hospital [phone] Yosvany Gonsalez MD LAB - CHEMISTRY VIVIANA ADAMS [facility] Organization Address City/State/ZIP Co de Phone Number [facility] ACCOUNT BILL Care Teams Interlibrary Loan Services Librarian Relationship Specialty Start Date End Date Addison Joy MD [address] [place] [address] PCP - General Internal Medicine 09/04/19
--- OUTSIDE RECORDS SUMMARY | 2024-11-02 09:06 | XMS_ITS | Encounter Summary ---
Author Organization [facility] Address [address] [place] [address] Care Team Providers Care Funeral Service Practitioner/Embalmer Name Role Phone Yosvany Gonsalez MD Primary Care Provider [phone] Reason for Visit * Reason Comments POST-OP PROBLEM Encounter Details Date Type Department Care Team (Late st Contact Info) Description 12/26/2016 7:11 PM SENIOR CYTOGENETICS LABORATORY DIRECTOR - 12/26/2016 7:22 PM SENIOR CYTOGENETICS LABORATORY DIRECTOR Emergency ER at [address] [address] Discharge Disposition: Left Against Medical Advice/Discontinued Care [...] Comments Blood Pressure 135/72 12/26/2016 5:39 PM SENIOR CYTOGENETICS LABORATORY DIRECTOR Pulse 94 12/26/2016 5:39 PM SENIOR CYTOGENETICS LABORATORY DIRECTOR Temperature 36.7 ??C (98 ??F) 12/26/2016 5:39 PM SENIOR CYTOGENETICS LABORATORY DIRECTOR Respiratory Rate 16 12/26/2016 5:39 PM SENIOR CYTOGENETICS LABORATORY DIRECTOR Oxygen Saturation 98% 12/26/2016 5:39 PM SENIOR CYTOGENETICS LABORATORY DIRECTOR Inhaled Oxygen Concentration - - Weight 82.9 kg (182 lb 12.2 oz) 12/26/2016 5:39 PM SENIOR CYTOGENETICS LABORATORY DIRECTOR Height 170.2 cm (5' 7 ) 12/26/2016 5:39 PM SENIOR CYTOGENETICS LABORATORY DIRECTOR Body Mass Index 28.62 12/26/2016 5:39 PM SENIOR CYTOGENETICS LABORATORY DIRECTOR documented in this encounter Medications at Time of Discharge Medication Sig Dispensed Refills Start Date End Date aspirin (ASPIRIN) 81 MG chew tablet Take 81 mg by mouth once daily Cholecalciferol (VITAMIN D) 2000 UNITS CAPS capsule Take 2,000 Units by mouth once daily [place]-3 Fatty Acids (FISH OIL) 1000 MG capsule [...] of leaving explained. Patient statesunderstanding of same. OR CYTOGENETICS LABORATORY DIRECTOR * Summer Lagos RN - 12/26/2016 5:37 PM CST Patient had partial knee replacement today. Left knee. Had liu of blood into my dressing . Dressing intact. Reinforced dressing at this time. Denies any other complaints at this time. OR CYTOGENETICS LABORATORY DIRECTOR documented in this encounter Plan of Treatment Not on file documented as of this encounter Visit Diagnoses Not on filedocumented in this encounter Care Teams Funeral Service Practitioner/Embalmer Relationship Specialty Start Date End Date Yosvany Gonsalez MD [address] [place] [phone] PCP - General Internal Medicine 04/08/13 09/03/19 documented as of this encounter
--- OUTSIDE RECORDS SUMMARY | 2024-11-02 09:06 | XMS_ITS | Encounter Summary ---
Author Organization [facility] Address [address] [place] [address] Care Team Providers Care Manager Reliability Name Role Phone Yosvany Gonsalez MD Primary Care Provider [phone] Reason for Visit * Reason Onset Date Comments Vaccine Question 08/02/2017 Encounter Details Date Type Department Care Team (Late st Contact Info) Description 08/02/2017 Telephone [facility] Medical [facility] - Family Medicine [address] [phone] Yosvany Gonsalez MD [address] [place] [address] Vaccine Question Social History Tobacco [...] filedocumented in this encounter Care Teams Manager Reliability Relationship Specialty Start Date End Date Yosvany Gonsalez MD [address] [place] [phone] PCP - General Internal Medicine 04/08/13 09/03/19 documented as of this encounter
--- OUTSIDE RECORDS SUMMARY | 2024-11-02 09:06 | XMS_ITS | Encounter Summary ---
Author Organization [facility] Address [address] [place] [address] Care Team Providers Care Hand Trucker Name Role Phone Yosvany Gonsalez MD Primary Care Provider [phone] Encounter Details Date Type Department Care Team (Late st Contact Info) Description 11/27/2018 Orders Only [facility] - Family Medicine [address] [place] [phone] Yosvany Gonsalez MD [address] [place] [phone] Social History Tobacco Use Types Packs/Day Years [...] CBC W AUTO DIFFERENTIAL 11/27/2018 7:45 AM SKIVER COUNTER COMPREHENSIVE METABOLIC PANEL 11/27/2018 7:45 AM SKIVER COUNTER URIC ACID BLOOD 11/27/2018 7:39 AM SKIVER COUNTER TSH 11/27/2018 7:39 AM SKIVER COUNTER LIPID PROFILE 11/27/2018 7:39 AM SKIVER COUNTER documented in this encounter Results * CBC WITH DIFFERENTIAL (11/27/2018 7:45 AM SKIVER COUNTER) White Blood Cell Count 4.7 3.8 - [...] 0.9 % [facility] Comment: Test Performed at: [facility] [address] [place] [address] ??[phone] MICHEL LEO DO,MPH 11/27/2018 7:45 AM SKIVER COUNTER 11/27/2018 7:46 AM SKIVER COUNTER Yosvany Gonsalez MD LAB - HEMATOLOGY ORD ERABLES [facility] [address] [place] [address] * COMPREHENSIVE METABOLIC PANEL (11/27/2018 7:45 AM SKIVER COUNTER) Glucose 96 65 - 99 mg/dL [facility] Comment: ? Fasting reference interval BUN 17 7 - 25 mg/dL [facility] Creatinine 0.87 0.70 - 1.25 mg/dL [facility] Comment: For patients >49 years of age, the reference limit for Creatinine is approximately 13% higher for people identified as -Turkmen. eGFR by MDRD 91 > OR = [...] 46 U/L [facility] Comment: Test Performed at: [facility] [address] [place], [place] ??[phone] MICHEL LEO DO,MPH 11/27/2018 7:45 AM SKIVER COUNTER 11/27/2018 7:46 AM SKIVER COUNTER Yosvany Gonsalez MD LAB - CHEMISTRY VIVIANA ADAMS [facility] [address] [place] [address] * TSH (11/27/2018 7:39 AM SKIVER COUNTER) Pathologist [facility] TSH 2.25 0.40 - 4.50 mIU/L [facility] Comment: REPORT COMMENT: FASTING:YES Test Performed at: [employer] [place], [place] ??[phone] MICHEL LEO DO,MPH 11/27/2018 7:39 AM SKIVER COUNTER 11/27/2018 7:41 AM SKIVER COUNTER Yosvany Gonsalez MD LAB - CHEMISTRY VIVIANA ADAMS Performing Organization Address [facility] Co de Phone Number [facility] [phone] [place] [address] * URIC ACID BLOOD (11/27/2018 7:39 AM SKIVER COUNTER) Uric Acid 6.4 4.0 - 8.0 mg/dL [facility] Comment: Therapeutic target for gout patients: <6.0 mg/dL ?? Test Performed at: [facility] [address] [place], [place] ??[phone] MICHEL LEO DO,MPH 11/27/2018 7:39 AM SKIVER COUNTER 11/27/2018 7:41 AM SKIVER COUNTER Yosvany Gonsalez MD LAB - CHEMISTRY VIVIANA ADAMS Performing Organization Address [facility] de Phone Number [facility] [phone] [place] [address] * (ABNORMAL) LIPID PROFILE (11/27/2018 7:39 AM SKIVER COUNTER) Cholesterol 204(H) <200 mg/dL [facility] HDL Cholesterol [...] LDL-C. Armani STEPHEN et al. RODOLFO. 2013;310(19): 2172-1099 (http://education.SDI-Solution.[employer] Systems/faq/AAL295) CHOL/HDLC RATIO 3.6 <5.0 (calc) [facility] Non HDL Cholesterol 148(H) <130 mg/dL (calc) [facility] Comment: For patients with diabetes plus 1 major ASCVD risk factor, treating to a non-HDL-C goal of <100 mg/dL (LDL-C of <70 mg/dL) is considered a therapeutic option. Test Performed at: [facility] [address] [place], [place] ??[phone] MICHEL LEO DO,MPH 11/27/2018 7:39 AM SKIVER COUNTER 11/27/2018 7:41 AM SKIVER COUNTER Yosvany Gonsalez MD LAB - CHEMISTRY VIVIANA ADAMS [facility] Organization Address City/State/ZIP Co de Phone Number [facility] [address] [place] [address] documented in this encounter Visit Diagnoses Not on filedocumented in this encounter Care Teams Hand Trucker Relationship Specialty Start Date End Date Yosvany Gonsalez MD [address] [place] [phone] PCP - General Internal Medicine 04/08/13 09/03/19 documented as of this encounter
--- OUTSIDE RECORDS SUMMARY | 2024-11-02 09:06 | XMS_ITS | Encounter Summary ---
Author Organization [facility] Address [address] [place] [address] Care Team Providers Care Processing Spec Name Role Phone Yosvany Gonsalez MD Primary Care Provider [phone] Encounter Details Date Type Department Care Team (Late st Contact Info) Description 02/15/2019 Orders Only [facility] - Family Medicine [address] [place] [phone] Yosvany Gonsalez MD [address] [place] [phone] Social History Tobacco Use Types Packs/Day Years [...] diagnosis of diabetes in children. According to [place] Diabetes Association (ADA) guidelines, hemoglobin A1c <7.0% represents optimal control in non- diabetic patients. Different metrics may apply to specific patient populations. Standards of Medical Care in Diabetes(ADA). ?? REPORT COMMENT: FASTING:YES Test Performed at: [employer] [facility] [address] [place] ??[phone] MICHEL LEO DO,MPH 02/15/2019 7:51 AM CDT 02/15/2019 7:52 AM CDT Yosvany Gonsalez MD LAB - CHEMISTRY ORDE RABLES Performing Organization Address [facility] [address]/[facility] de Phone Number [facility] [address] [place] [address] * PROSTATE SPECIFIC ANTIGEN SCREEN (02/15/2019 7:51 AM CDT) [facility] PSA 0.6 < OR = 4.0 [...] or absence of disease. Test Performed at: [employer] [place] ??[phone] MICHEL LEO DO,MPH 02/15/2019 7:51 AM CDT 02/15/2019 7:52 AM CDT Yosvany Gonsalez MD LAB - CHEMISTRY VIVIANA ADAMS Performing Organization Address [facility] de Phone Number [facility] [address] [place] [address] * VITAMIN B12 (02/15/2019 7:51 AM CDT) [facility] Vitamin B12 240 200 - 1100 [...] pg/mL will have symptoms. Test Performed at: [employer] [facility] [place] ??[phone] MICHEL LEO DO,MPH 02/15/2019 7:51 AM CDT 02/15/2019 7:52 AM CDT Yosvany Gonsalez MD LAB - CHEMISTRY VIVIANA ADAMS Performing Organization Address [facility] [address]/ZIP Co de Phone Number [facility] [address] [place] [address] * TSH (02/15/2019 7:51 AM CDT) Pathologist [facility] TSH 1.14 0.40 - 4.50 mIU/L [facility] Comment: Test Performed at: [employer] [facility] [address] [place] ??[phone] MICHEL LEO DO,MPH 02/15/2019 7:51 AM CDT 02/15/2019 7:52 AM CDT Yosvany Gonsalez MD LAB - CHEMISTRY VIVIANA ADAMS Performing Organization Address City/State/[facility] Co de Phone Number [facility] [address] [place] [address] * CBC WITH DIFFERENTIAL (02/15/2019 7:51 AM CDT) [facility] White Blood Cell Count 4.0 3.8 [...] 1.2 % [facility] Comment: Test Performed at: [employer] [facility] [address] [place] ??[phone] MICHEL LEO DO,MPH 02/15/2019 7:51 AM CDT 02/15/2019 7:52 AM CDT Yosvany Gonsalez MD LAB - HEMATOLOGY ORD JENNY Performing Organization Address [facility] [address]/[facility] Co de Phone Number [facility] [address] [place] [phone] * COMPREHENSIVE METABOLIC PANEL (02/15/2019 7:51 AM CDT) Pathologist [facility] Glucose 95 65 - 99 mg/dL [facility] Comment: ? Fasting reference interval BUN 14 7 - 25 mg/dL [facility] Creatinine 0.74 0.70 - 1.25 mg/dL [facility] Comment: For patients >49 years of age, the reference limit for Creatinine is approximately 13% higher for people identified as -Niuean. eGFR by MDRD 97 > OR = [...] 46 U/L [facility] Comment: Test Performed at: [employer] [facility] ??[phone] MICHEL LEO DO,MPH 02/15/2019 7:51 AM CDT 02/15/2019 7:52 AM CDT Yosvany Gonsalez MD LAB - CHEMISTRY VIVIANA ADAMS Performing Organization Address City/[facility] [address]/[facility] Co de Phone Number [facility] [address] [place] [address] * URIC ACID BLOOD (02/15/2019 7:51 AM CDT) Uric Acid 6.3 4.0 - 8.0 mg/dL [facility] Comment: Therapeutic target for gout patients: <6.0 mg/dL ?? Test Performed at: [employer] [facility] [address] [place] ??[phone] MICHEL LEO DO,MPH 02/15/2019 7:51 AM CDT 02/15/2019 7:52 AM CDT Yosvany Gonsalez MD LAB - CHEMISTRY VIVIANA ADAMS [facility] [address] [place] [address] * LIPID PROFILE (02/15/2019 7:51 AM CDT) [...] LDL-C. Armani SS et al. RODOLFO. 2013;310(19): 6722-1202 (http://education.Jodange.[employer]Bolt Software/faq/SGI715) CHOL/HDLC RATIO 3.3 <5.0 (calc) [facility] Non HDL Cholesterol 111 <130 mg/dL (calc) [facility] Comment: For patients with diabetes plus 1 major ASCVD risk factor, treating to a non-HDL-C goal of <100 mg/dL (LDL-C of <70 mg/dL) is considered a therapeutic option. Test Performed at: [employer] [facility] [address] [place] ??[phone] MICHEL LEO DO,MPH 02/15/2019 7:51 AM CDT 02/15/2019 7:52 AM CDT Yosvany A Gonsalez MD LAB - CHEMISTRY VIVIANA ADAMS [facility] [address] [place] [address] documented in this encounter Visit Diagnoses Not on filedocumented in this encounter Care Teams Processing Spec Relationship Specialty Start Date End Date Yosvany Gonsalez MD [address] [place] [phone] PCP - General Internal Medicine 04/08/13 09/03/19 documented as of this encounter
--- OUTSIDE RECORDS SUMMARY | 2024-11-02 09:06 | XMS_ITS | Encounter Summary ---
Author Organization [facility] Address [address] [place] [address] Care Team Providers Care Pharmacist Assistant Name Role Phone Yosvany Gonsalez MD Primary Care Provider [phone] Reason for Visit * Auth/Cert Specialty Diagnoses / Procedures Referred By hSelby jama Referred To Contact Diagnoses Herniated nucleus [...] Expiration Date Visits Re quested Visits Authorized [id number] 1 1 Encounter Details Date Type Department Care Team (Late st Contact Info) Description 10/02/2018 11:08 AM STEFFEN HOUSE SUPERVISOR - 10/02/2018 3:25 PM STEFFEN HOUSE SUPERVISOR Surgery [facility] - Periop [address] [place] [address] Jennifer Kay MD [address] [facility] [id number] DISCECTOMY WITH FUSION ANTERIOR CERVICAL (ACDF) MULTI-LEVEL C3-4, C6-7 Surgery Details Date/Time Status Location OR Service Patient Class Case Class Case Type Trauma Case? 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 Explosive Expert Admit Surgical Elective > 5 days Panel [...] Comments Blood Pressure 154/86 10/02/2018 9:43 AM STEFFEN HOUSE SUPERVISOR Pulse 82 10/02/2018 9:43 AM STEFFEN HOUSE SUPERVISOR Temperature 36.4 ??C (97.6 ??F) 10/02/2018 9:43 AM CS T Respiratory Rate 20 10/02/2018 9:43 AM STEFFEN HOUSE SUPERVISOR Oxygen Saturation 98% 10/02/2018 9:43 AM STEFFEN HOUSE SUPERVISOR Inhaled Oxygen Concentration - - Weight 78 kg (171 lb 15.3 oz) 10/02/2018 9:40 AM STEFFEN HOUSE SUPERVISOR Height 170.2 cm (5' 7 ) 10/02/2018 9:40 AM STEFFEN HOUSE SUPERVISOR Body Mass Index 27.28 10/02/2018 9:40 AM STEFFEN HOUSE SUPERVISOR documented in this encounter Functional Status Functional [...] Kay MD - 10/03/2018 3:15 PM CST [facility] Discharge Summary PATIENT NAME: MANDIE [facility]TER [facility]#: [id number] CSN: [id number] CLASS: I/P ADMISSION DATE: 10/02/2018SEX: M DISCHARGE [...] The patient is a relatively healthy, 63-year-old, epbai-xhhq-ymricnge male, still works. He developed radicular left [...] by his primary care physician, admitted to [facility] on 10/02/2018. Admission labs and cardiogram [...] minor dysphagia. Hewas given IV pain meds, HARDWOOD FLOOR INSTALLATION HELPER Dilaudid pump, and cool liquids, ice chips, and lozenges. By the following morning, patient was able to swallow well. He was given a soft diet which he tolerated, actuallyate a grilled cheese sandwich for lunch. He was ambulating independently with no assistive devices.The HARDWOOD FLOOR INSTALLATION HELPER pump was discontinued, postop day 1 in [...] has a followup appointment with Dr. Kay's railway yard assistant, Calvin Paul, nurse practitioner for October 10, 2018, for removal of a subcuticular nylon suture. All the patient's home medications that were listed in the medical section of his hospital record were resumed at discharge. He was discharged in good condition. Tammy Rosado/MAXIME /[id number] cc: Jennifer Kay M.D. DISCHARGE SUMMARY - [facility] FEN HOUSE SUPERVISOR documented in this encounter Discharge Instructions * Discharge Instructions* nUique Bedolla RN - 10/03/2018 8:33 AM STEFFEN HOUSE SUPERVISOR Anterior Cervical Discectomy WHAT YOU NEED TO [...] may look swollen and red. ?? Copyright Sessions 2018 Information is for End User's use only and may not be sold, redistributed or otherwise used for commercial purposes. All illustrations and images included in CareNotes?? are the copyrighted property of [employer]. or [employer] The above information is an nurse aide only. It is not intended as medical advice for individual conditions or treatments. Talk to your doctor, nurse or pharmacist before following any medical regimen to see if it is safe and effective for you. Oxycodone/Acetaminophen (By mouth) Acetaminophen (b-akfk-l-MIN-oh-fen), Oxycodone Hydrochloride (cc-g-JAJ-done pfv-vgtv-ONBX-sandro) Treats moderate to moderately severe pain. This [...] pharmacist before using any other medicine, including zacj-tvd-vxtioey medicines, vitamins, and herbal products. ?? Do [...] may report side effects to FDA at 9-158-IQJ-1993 ?? Copyright Sessions 2018 Information is for End User's use only and may not be sold, redistributed or otherwise used for commercial purposes. The above information is an nurse aide only. It is not intended as medical advice for individual conditions or treatments. Talk to your doctor, nurse or pharmacist before following any medical regimen to see if it is safe and effective for you. FEN HOUSE SUPERVISOR documented in this encounter Medications at Time of Discharge Medication Sig Dispensed Refills Start Date End Date aspirin (ASPIRIN) 81 MG chew tablet Take 81 mg by mouth once daily Cholecalciferol (VITAMIN D) 2000 UNITS CAPS capsule Take 2,000 Units by mouth once daily [place]-3 Fatty Acids (FISH OIL) 1000 MG capsule [...] medications. Voices no concerns at this time. FEN HOUSE SUPERVISOR * Francisco Chetan Sanya, CAFE SITE ATTENDANT - 10/03/2018 2:38 PM CST Care Management Initial Assessment Met with: Pt Patient's orientation/cognition: A&O, Mood: Appropriate Lives with:: Spouse Community Resources currently in use?: No Requires assistance with:: None Medical Conditions: (Cervical spondylosis, stenosis, and disk herniation, C3-4 and C6-7 with left cervical radiculopathy and cephalgia) Equipment At Home: None Preferred Pharmacy [email or web address] [address] [facility] [address] [phone] Portal to [facility] [address] [facility] [address] Hours: Fax number verified on 11-14-2012 [id number] [place] [address] [phone] [place] [address] Not a 24 hour pharmacy; exact hours not known [id number] [place] [address] [phone] [place] [address] Not a 24 hour pharmacy; exact hours not known Medi-Recorder Helper Gravity Prospecting: yes Ability to afford meds/at what level [...] resources? Yes Reason for provider choice: Insurance [facility] Prescreen sent (if applicable/date): n/a Transportation at [...] until he sees him on his f/uvisit. FEN HOUSE SUPERVISOR * Jennifer Kay MD - 10/03/2018 1:30 [...] D/C home now, F/U in one week. FEN HOUSE SUPERVISOR * Geovany Rebollar, JOSEFINA - 10/03/2018 10:02 [...] Dressing Stand By Assist Fine Motor Coordination Special Warfare Boat Operator Strength Compared Equal strength of right and [...] go home today. No skilled OT needs FEN HOUSE SUPERVISOR * Addison Paul, PT - 10/03/2018 8:59 [...] (Calculated) 0 CMS 'G-Code' Modifier (Calculated) CH FEN HOUSE SUPERVISOR * Addison Paul, PT - 10/03/2018 8:57 AM CST 10/03/18 0846 Author/Specialty Author / Specialty Physical Therapy Aerodynamics Professor Resource Is a qualified industrial waste treatment technician used? No Home Situation Type of Residence [...] Score # 0 Bed Mobility Rolling Complete [place] Supine to Sit Complete [place] Sit to Supine Complete [place] Transfers Sit to Stand Complete [place] Stand to Sit Complete [place] Chair to Bed Complete [place] Bed to Chair Complete [place] Transfer Device No Device Mobility Distance Ambulated 440 FEET Ambulation: Assistive Device None Ambulation: Level of Assistance Complete [place] Weight Bearing Status-LLE Weight Bearing as Tolerated Weight Bearing Status-RLE Weight Bearing as Tolerated Weight Bearing Status-LUE Weight Bearing as Tolerated Weight Bearing Status-RUE Weight Bearing as Tolerated RLE Assessment RLE Assessment WDL RLE Sensation WFL LLE Assessment LLE Assessment WDL LLE Sensation WFL Treatment Time Treatment Start Time 0815 Physical Therapy Treatment Summary Note 10/03/2018 Mandie Cotter [id number] Referring Physician:Jennifer Kay MD Referral Diagnosis: 1. Cervical stenosis of spinal canal 2. Herniated nucleus pulposus, C3-4 left 3. Osteoarthritis of cervical spine, unspecified spinal osteoarthritis complication status 4. Stenosis of cervical spine Comorbidities impacting plan of care: Problem List: decreased Strength ,Transfer And Gait Skills , Decreased Balance, Fall Risk, InstructAnd Educate To Improve Quality Of Life. Functional Limitation: 000 per [facility] Rationale for Therapy: Patient will benefit from [...] Reach Addison Paul, PT 10/03/2018 8:57 AM FEN HOUSE SUPERVISOR * Mireya Fernandez, PharmD - 10/03/2018 8:20 AM CST Medication Reconciliation Note Reviewed med list prior to discharge. Oxycodone-APAP script printed by physician. Mireya Fernandez PharmD 10/03/2018 8:20 AM FEN HOUSE SUPERVISOR * Gee Chávez RN - 10/03/2018 7:36 AM CST End of shift note. Chart review complete. Numbness and tingling to LUE continues. No distress or concerns voiced. FEN HOUSE SUPERVISOR * Gee Chávez RN - 10/03/2018 12:00 AM CST Problem: Pain/Discomfort Goal: Patient verbalizes acceptable level of pain relief and ability to engage in desired activity. Outcome: Ongoing Pt verbalizes acceptable level of pain relief. Problem: Low Fall Risk (Score 7-10) Goal: Patient will remain safe from falls and injury. Outcome: Ongoing Pt remains safe from falls and injury. FEN HOUSE SUPERVISOR * Gee Chávez RN - 10/02/2018 10:11 PM CST Pt refused co2 monitoring at this time. Educated on importance of same. FEN HOUSE SUPERVISOR documented in this encounter OR Notes * Operative - Jennifer Kay MD - 10/03/2018 3:36 AM CST [facility] Operative Report PATIENT NAME: MANDIE COTTER#: [id number] CSN: [id number] CLASS: I/P ADMISSION DATE: 10/02/2018ROOM#: [id number] PRIMARY MD: SEX: M ATTENDING MD: JENNIFER HOBBSOB: 1955 SURGEON: Jennifer Kay M.D. DICTATOR: JENNIFER KAY M.D. SURGERY DATE: 10/02/2018 FACILITY: Main operating room, [place], [place]. PREOPERATIVE DIAGNOSIS: Cervical spondylosis, stenosis, and [...] then anterior cervical plating, C3-4 and C6-7. YIELD IMPROVEMENT ENGINEER: Galina Hummel, nurse practitioner. ANESTHESIA: General. ESTIMATED BLOOD LOSS: 150 cc. FLUID REPLACEMENT: 2000 cc crystalloid. SPECIMEN: C3-4 and C6-7 discs. COMPLICATIONS: None. CONDITION: At the end of the procedure was stable. URINE OUTPUT: Not monitored during the procedure. 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 He started developing radicular left arm pain [...] by his primary care physician, admitted to [facility] on October 02, 2018. DESCRIPTION OF [...] allow visualization of lower cervical spine. Lateral on line csr x-ray was taken which showed our ability [...] isolated and incised using Bovie cautery. My railway yard assistant then held a handheld appendiceal retractor [...] it, and then placed a Cloward lamina nuclear weapons custodian on the right side of the disk [...] bodies of C6 and C7. Cloward lamina nuclear weapons custodian was removed and the graft was countersunk [...] was then taken confirming my position. My railway yard assistant again held appendiceal retractors to retract [...] much as the C6-7 one. Cloward lamina nuclear weapons custodian was placed on the right side. Subtotal [...] flushed withthe vertebral bodies of C3-4. Lamina nuclear weapons custodian was removed. I countersunk the graft about [...] disks. ADDENDUM: Galina Hummel, nurse practitioner, was international first officer for this procedure. Her responsibilities included, she [...] could not have been done without a international first officer. Tammy Rosado/MAXIME /[id number] cc: Jennifer Kay M.D. OPERATIVE REPORT - OP FEN HOUSE SUPERVISOR * Brief Op Note - Jennifer Kay [...] Role: * Jennifer Kay MD - Primary Snap Attacher(s): Galina Hummel NP Anesthesia Type: general Complications: [...] MD 10/02/2018 3:15 PM Jennifer Kay MD FEN HOUSE SUPERVISOR documented in this encounter Plan of Treatment Not on file documented as of this encounter Procedures Procedure Name Priority Date/Time Associated Diagnosis Comments CARDIAC RHYTHM STRIP ORDER 10/04/2018 2:06 PM STEFFEN HOUSE SUPERVISOR OT EVAL AND TREAT Routine 10/02/2018 7:29 PM STEFFEN HOUSE SUPERVISOR PT EVAL AND TREAT Routine 10/02/2018 7:29 PM STEFFEN HOUSE SUPERVISOR XR CERVICAL SPINE 2 OR 3VW STAT 10/02/2018 5:55 PM STEFFEN HOUSE SUPERVISOR Herniated nucleus pulposus, C3-4 left Osteoarthritis of cervical spine, unspecified spinal osteoarthritis complication status Stenosis of cervical spine GROSS + MICRO EXAM (ILL) Routine 10/02/2018 3:14 PM STEFFEN HOUSE SUPERVISOR Herniated nucleus pulposus, C3-4 left Osteoarthritis of cervical spine, unspecified spinal osteoarthritis complication status Stenosis of cervical spine DISCECTOMY WITH FUSION ANTERIOR CERVICAL (ACDF) MULTI-LEVEL 10/02/2018 12:23 PM STEFFEN HOUSE SUPERVISOR Herniated nucleus pulposus, C3-4 left Osteoarthritis of cervical spine, unspecified spinal osteoarthritis complication status Stenosis of cervical spine Special Needs BONE SPACERS, SYNTHES VECTRA-T PLATESNOTIFIED MANJIT AND JOHN @ SYNTHES BLOOD TYPE VERIFICATION Routine 10/02/2018 10:17 AM STEFFEN HOUSE SUPERVISOR documented in this encounter Results * CARDIAC RHYTHM STRIP ORDER (10/04/2018 2:06 PM STEFFEN HOUSE SUPERVISOR) Narrative 10/04/2018 2:06 PM STEFFEN HOUSE SUPERVISOR Ordered by an unspecified provider. Scanned Document CARDIAC SERVICES ORD ERABLES * XR CERVICAL SPINE 2 OR 3 VW [id number] (10/02/2018 5:55 PM STEFFEN HOUSE SUPERVISOR) Anatomical Region Laterality Modality Spine Radiographic Leola ging 10/02/2018 6:04 PM STEFFEN HOUSE SUPERVISOR Impressions 10/02/2018 6:05 PM STEFFEN HOUSE SUPERVISOR Anterior fusion hardware is in place at C6-C7 with intervertebral graft. Bones and hardware are in good alignment at conclusion of exam. Narrative 10/02/2018 6:05 PM STEFFEN HOUSE SUPERVISOR PROCEDURE: XR CERVICAL SPINE 2 OR 3VW [...] + MICRO EXAM (ILL) (10/02/2018 3:14 PM STEFFEN HOUSE SUPERVISOR) Case Report Surgical Pathology Report ? Case: [id number] ? Authorizing Provider: ??Jennifer Kay MD ?Collected: ? 10/02/2018 03:14 PM ? Ordering Location: ? [facility] ? Received: ?10/03/2018 06:56 AM ? Pathologist: ? Julian Alexis MD ? Specimen: ?Disc Tissue, C3-4;C6-7 ? 10/05/2018 9:19 AM STEFFEN HOUSE SUPERVISOR [facility] Final Diagnosis DISC FRAGMENTS, C3-4 AND C6-7, ANTERIOR CERVICAL DISCECTOMY WITH FUSION: - FRAGMENTS OF DEGENERATING FIBROCARTILAGINOUS DISC. - FRAGMENTS OF UNREMARKABLE BONE. - NEGATIVE FOR ACUTE INFLAMMATION AND NEOPLASM. ZOË/chidi 10/05/2018 9:19 AM STEFFEN HOUSE SUPERVISOR [facility] Clinical History Herniated nucleus pulposus, C3-4 left; Osteoarthritis of cervical spine. 10/05/2018 9:19 AM STEFFEN HOUSE SUPERVISOR [facility] Gross Description Specimen received in formalin labeled Mandie Cotter labeled as ? disc tissue C3-C4; C6-7? , consists of irregular fragments of warren-white to warren-brown soft tissue and cartilage tissue together aggregating 3 cm. There is no abnormal pigmentation. Specimen is submitted in one cassette after decalcification. RP/jzr 10/05/2018 9:19 AM [facility] Microscopic Description Microscopic examination is performed and substantiates the above diagnosis. 10/05/2018 9:19 AM [facility] Performed By Performed by [facility] [place]. [address] 10/05/2018 9:19 AM STEFFEN HOUSE SUPERVISOR [facility] Embedded Images 10/05/2018 9:19 AM [facility] Pathology/Cytol ogy SPECIMEN FROM INTERVERTEBRAL DISC / Unknown 10/02/2018 3:14 PM STEFFEN HOUSE SUPERVISOR 10/03/2018 6:56 AM STEFFEN HOUSE SUPERVISOR Jennifer Kay MD LAB - PATHOLOGY/CYTO LOGY ORDERABLES Performing Organization Address City/[facility]/ZIP Co de Phone Number [facility] [address] * BLOOD TYPE VERIFICATION (10/02/2018 10:17 AM STEFFEN HOUSE SUPERVISOR) ABO O 10/02/2018 11:07 AM [facility] B[facility]OD [facility]ANK Rh Type Positive 10/02/2018 11:07 AM [facility] Blood Bank BLOOD SPECIMEN / Unknown Lab Venipuncture / Unknown 10/02/2018 10:17 AM STEFFEN HOUSE SUPERVISOR 10/02/2018 10:38 AM STEFFEN HOUSE SUPERVISOR Jennifer Kya MD LAB - BLOOD BANK ORD ERABLES [facility] [address] documented in this encounter Visit Diagnoses [...] 0900, Post-op $ Given 10/03/2018 9:38 AM STEFFEN HOUSE SUPERVISOR 81 mg $ Given 10/02/2018 7:48 PM STEFFEN HOUSE SUPERVISOR 81 mg bacitracin 100,000 Units in NaCl 0.9 % 1,000 mL irrigation PRN, Starting on Mon10/02/18 at 1341, Until Mon10/02/18 at 1728, Intra-op $ Given 10/02/2018 4:10 PM STEFFEN HOUSE SUPERVISOR Opera tive Site $ Given 10/02/2018 1:41 PM STEFFEN HOUSE SUPERVISOR Op erative Site bisacodyl (DULCOLAX) suppository 10 [...] 1728, Intra-op $ Given 10/02/2018 1:41 PM STEFFEN HOUSE SUPERVISOR 6 mL Ope rative Site docusate sodium (COLACE) capsule 100 mg 100 mg, Oral, 2 TIMES DAILY, First dose on Mon10/02/18 at 2100, Until Discontinued, Post-op $ Given 10/03/2018 9:38 AM STEFFEN HOUSE SUPERVISOR 100 mg $ Given 10/02/2018 9:27 PM STEFFEN HOUSE SUPERVISOR 100 mg ezetimibe-simvastatin (VYTORIN) 10-10 MG tablet 1 tablet 1 tablet, Oral, AT BEDTIME, 365 doses, First dose on Mon10/02/18 at 2245, Last dose on Mon10/01/19 at 2100 $ Given 10/02/2018 10:18 PM STEFFEN HOUSE SUPERVISOR 1 tablet magnesium hydroxide (MILK OF MAGNESIA) suspension 30 mL 30 mL, Oral, DAILY PRN, Constipation, Starting on Mon10/02/18 at 1929, Until Mon10/03/18 at 1652, Use MOM first. If MOM ineffective then use bisacodyl. If bisacodyl ineffective use Fleets enema. Shake well before using., Post-op $ Given 10/02/2018 7:48 PM STEFFEN HOUSE SUPERVISOR 30 mL oxyCODONE-acetaminophen (PERCOCET) 7.5-325 MG tablet 1 tablet 1 tablet, Oral, EVERY 4 HOURS PRN, Moderate Pain, Starting on Mon10/03/18 at 0844, Until Mon10/03/18 at 1652 oxyCODONE-acetaminophen (PERCOCET) 7.5-325 MG tablet 2 tablet 2 tablet, Oral, EVERY 4 HOURS PRN, Severe Pain, Starting on Mon10/03/18 at 0845, Until Mon10/03/18 at 1652 $ Given 10/03/2018 9:38 AM STEFFEN HOUSE SUPERVISOR 2 tablet s pantoprazole (PROTONIX) injection 40 mg 40 mg, Intravenous, DAILY, 365 doses, First dose on Mon10/02/18 at 1930, Last dose on Mon10/01/19 at 0900, For every 40 mg of pantoprazole mix with 10 mL Normal Saline (final concentration = 4 mg/mL). Inject SLOWLY over 2 min., Post-op $ Given 10/03/2018 9:38 AM STEFFEN HOUSE SUPERVISOR 40 mg $ Given 10/02/2018 7:48 PM STEFFEN HOUSE SUPERVISOR 40 mg sodium phosphate rectal (FLEET SALINE) enema 133 mL 133 mL (1 enema), Rectal, DAILY PRN, Constipation, Starting on Mon10/02/18 at 1929, Until Mon10/03/18 at 1652, Use MOM first. If MOM ineffective then use bisacodyl. If bisacodyl ineffective use Fleets enema., Post-op thrombin (recombinant) (RECOTHROM) solution PRN, Starting on Mon10/02/18 at 1341, Until Mon10/02/18 at 1728, Intra-op $ Given 10/02/2018 1:41 PM STEFFEN HOUSE SUPERVISOR 5,000 Units Operative Site documented in this encounter Active and Recently Administered Medications Times are shown in STEFFEN HOUSE SUPERVISOR. Scheduled Medication Order 10/01/2018 10/02/2018 10/03/2018 aspirin [...] 1240 ($ Given - Provider: Jaz العراقي APRN-[facility]) ceFAZolin (ANCEF) 2,000 mg in 50 [...] Kaci Diaz RN) HYDROmorphone (DILAUDID) 20 mg/100ml HARDWOOD FLOOR INSTALLATION HELPER (CANCELED) Intravenous, HARDWOOD FLOOR INSTALLATION HELPER, Starting on Mon10/02/18 at 1745, Until Mon10/03/18 at 0845, - Bolus Dose:0.5 mg - HARDWOOD FLOOR INSTALLATION HELPER Dose: 0.1 mg - Lockout: 20 minutes - 1 hour limit: 0.7 mg - Continuous Dose: 0.4 mg/hr. If respiratory depression is present (less than 8/minute), stop HARDWOOD FLOOR INSTALLATION HELPER and administer naloxone (NARCAN) 0.4 mg every [...] ($ New Bag/Syringe - Provider: Jaz العراقي BRAZE OPERATOR-PATIENT BILLER)1635 ($ New Bag/Syringe - Provider: Anupam Valdez BRAZE OPERATOR-PATIENT BILLER)1726 (Anesthesia Volume Adjustment - Provider: Rasheed Abraham BRAZE OPERATOR-PATIENT BILLER) PRN Medication Order 10/01/2018 10/02/2018 10/03/2018 acetaminophen (TYLENOL) tablet 650 mg 650 mg, Oral, EVERY 4 HOURS PRN, Fever, For temperature GREATER than 101 , Starting on Mon10/02/18 at 1929, Until Mon10/03/18 at 1652, Maximum allowable Acetaminophen amount = 4 Grams (4000 mg) / 24 hours., Post-op mnpxzxlq-ilpwvenzm-quwxdmkoq ne (MAALOX;MYLANTA) suspension 20 mL 20 mL, [...] Post-op documented in this encounter Care Teams Pharmacist Assistant Relationship Specialty Start Date End Date Yosvany Gonsalez MD [address] [place] [phone] PCP - General Internal Medicine 04/08/13 09/03/19 documented as of this encounter
--- OUTSIDE RECORDS SUMMARY | 2024-11-02 09:06 | XMS_ITS | Encounter Summary ---
Author Organization [facility] Address [address] [facility] [place] [address] Care Team Providers Care Smash Piecer Name Role Phone Yosvany Gonsalez MD Primary Care Provider [phone] Reason for Visit * Reason Comments Chronic Condition(s) Follow-up Medication Management Hypertension Encounter Details Date Type Department Care Team (Latest Contact Info) Description 06/03/2019 4:30 PM CDT Office Visit [facility] Medical [facility] - Family Medicine [address], [place] [address] Yosvany Gonsalez MD [address] [place] [address] [place] [address] Annual physical exam (Primary Dx); [...] 2,000 Units by mouth once daily ??? [place]-3 Fatty Acids (FISH OIL) 1000 MG capsule [...] of education: 12 Occupational History ??? [employer] Social History Main Topics ??? Smoking status: [...] hyperlipidemia documented in this encounter Care Teams Smash Piecer Relationship Specialty Start Date End Date Yosvany Gonsalez MD [address] [place] [phone] PCP - General Internal Medicine 04/08/13 09/03/19 documented as of this encounter
--- OUTSIDE RECORDS SUMMARY | 2024-11-02 09:06 | XMS_ITS | Encounter Summary ---
Author Organization [facility] Address [address] [place] [address] Care Team Providers Care Tactical Intelligence Officer Name Role Phone Yosvany Gonsalez MD Primary Care Provider [phone] Reason for Visit * Auth/Cert Specialty Diagnoses [...] Expiration Date Visits Re quested Visits Authorized [id number] 1 1 Encounter Details Date Type Department Care Team (Latest Contact Info) Description 10/02/2018 9:28 AM OPERATION SPECIALIST - 10/03/2018 3:15 PM [facility] [address] [place] [address] Jennifer Kay MD [address] [facility] [place] [phone] Orthopedics Discharge Disposition: Home or Self Care [...] Comments Blood Pressure 147/68 10/03/2018 11:55 AM OPERATION SPECIALIST Pulse 82 10/03/2018 11:55 AM OPERATION SPECIALIST Temperature 36.5 ??C (97.7 ??F) 10/03/2018 11:[address] Respiratory Rate 18 10/03/2018 11:55 AM OPERATION SPECIALIST Oxygen Saturation 96% 10/03/2018 11:55 AM OPERATION SPECIALIST Inhaled Oxygen Concentration - - Weight 79 kg (174 lb 2.6 oz) 10/03/2018 3:49 AM OPERATION SPECIALIST Height 170.2 cm (5' 7 ) 10/02/2018 9:40 AM OPERATION SPECIALIST Body Mass Index 27.28 10/02/2018 9:40 AM OPERATION SPECIALIST documented in this encounter Functional Status Functional [...] Kay MD - 10/03/2018 3:15 PM CST [facility] Discharge Summary PATIENT NAME: MANDIE COTTER [facility]#: [id number] CSN: [id number] CLASS: I/P ADMISSION DATE: 10/02/2018SEX: M DISCHARGE [...] The patient is a relatively healthy, 63-year-old, xnuan-zfev-mxffazvi male, still works. He developed radicular left [...] by his primary care physician, admitted to [facility] on 10/02/2018. Admission labs and cardiogram showed [...] minor dysphagia. Hewas given IV pain meds, REMELT PAN TANK OPERATOR Dilaudid pump, and cool liquids, ice chips, and lozenges. By the following morning, patient was able to swallow well. He was given a soft diet which he tolerated, actuallyate a grilled cheese sandwich for lunch. He was ambulating independently with no assistive devices.The REMELT PAN TANK OPERATOR pump was discontinued, postop day 1 in [...] has a followup appointment with Dr. Kay's nurseryman assistant, Calvin Paul, nurse practitioner for October 10, 2018, for removal of a subcuticular nylon suture. All the patient's home medications that were listed in the medical section of his hospital record were resumed at discharge. He was discharged in good condition. Tammy Rosado/MAXIME /[id number] cc: Jennifer Kay M.D. DISCHARGE SUMMARY - [facility] ATION SPECIALIST documented in this encounter Discharge Instructions * Discharge Instructions* Unique Bedolla RN - 10/03/2018 8:33 AM OPERATION SPECIALIST Anterior Cervical Discectomy WHAT YOU NEED TO [...] may look swollen and red. ?? Copyright [employer] 2017 Information is for End User's use only and may not be sold, redistributed or otherwise used for commercial purposes. All illustrations and images included in CareNotes?? are the copyrighted property of [employer]. or [employer] The above information is an optometric aide only. It is not intended as medical advice for individual conditions or treatments. Talk to your doctor, nurse or pharmacist before following any medical regimen to see if it is safe and effective for you. Oxycodone/Acetaminophen (By mouth) Acetaminophen (b-hpqz-y-MIN-oh-fen), Oxycodone Hydrochloride (pe-o-OFM-done bua-awzi-DWIE-sandro) Treats moderate to moderately severe pain. This [...] pharmacist before using any other medicine, including uzvh-vef-erosviu medicines, vitamins, and herbal products. ?? Do [...] disease (such as asthma, COPD), thyroid problems, Ford disease, pancreas or gallbladder problems, prostate problems, [...] may report side effects to FDA at 3-675-RUZ-8580 ?? Copyright [employer] 2018 Information is for End User's use only and may not be sold, redistributed or otherwise used for commercial purposes. The above information is an optometric aide only. It is not intended as medical advice for individual conditions or treatments. Talk to your doctor, nurse or pharmacist before following any medical regimen to see if it is safe and effective for you. ATION SPECIALIST documented in this encounter Medications at Time of Discharge Medication Sig Dispensed Refills Start Date End Date aspirin (ASPIRIN) 81 MG chew tablet Take 81 mg by mouth once daily Cholecalciferol (VITAMIN D) 2000 UNITS CAPS capsule Take 2,000 Units by mouth once daily Court[place]-3 Fatty Acids (FISH OIL) 1000 MG capsule [...] medications. Voices no concerns at this time. ATION SPECIALIST * Chetan Singh MSW - 10/03/2018 2:38 PM CST Care Management Initial Assessment Met with: Pt Patient's orientation/cognition: A&O, Mood: Appropriate Lives with:: Spouse Community Resources currently in use?: No Requires assistance with:: None Medical Conditions: (Cervical spondylosis, stenosis, and disk herniation, C3-4 and C6-7 with left cervical radiculopathy and cephalgia) Equipment At Home: None Preferred Pharmacy [facility] [address] [facility] [address] [phone] Portal to [facility] Sites [address] [facility] [address] Hours: Fax number verified on 11-14-2012 [id number] [address] [address] [phone] [place] [address] Not a 24 hour pharmacy; exact hours not known [id number] [address] [place] [address] [phone] [place] [address] Not a 24 hour pharmacy; exact hours not known Medi-Inspector Clip On Sunglasses: yes Ability to afford meds/at what level [...] resources? Yes Reason for provider choice: Insurance [facility] Prescreen sent (if applicable/date): n/a Transportation at [...] until he sees him on his f/uvisit. ATION SPECIALIST * Jennifer Kay MD - 10/03/2018 1:30 [...] D/C home now, F/U in one week. ATION SPECIALIST * Geovany Rebollar, JOSEFINA - 10/03/2018 10:02 [...] Dressing Stand By Assist Fine Motor Coordination Social Work Professor Strength Compared Equal strength of right and [...] go home today. No skilled OT needs ATION SPECIALIST * Addison Paul, PT - 10/03/2018 8:59 [...] (Calculated) 0 CMS 'G-Code' Modifier (Calculated) CH ATION SPECIALIST * Addison Paul, PT - 10/03/2018 8:57 AM CST 10/03/18 0846 Author/Specialty Author / Specialty Physical Therapy Traffic Signal Supervisor Maintenance Resource Is a qualified end finder twisting department used? No Home Situation Type of Residence [...] Score # 0 Bed Mobility Rolling Complete [place] Supine to Sit Complete [place] Sit to Supine Complete [place] Transfers Sit to Stand Complete [place] Stand to Sit Complete [place] Chair to Bed Complete [place] Bed to Chair Complete [place] Transfer Device No Device Mobility Distance Ambulated 440 FEET Ambulation: Assistive Device None Ambulation: Level of Assistance Complete [place] Weight Bearing Status-LLE Weight Bearing as Tolerated Weight Bearing Status-RLE Weight Bearing as Tolerated Weight Bearing Status-LUE Weight Bearing as Tolerated Weight Bearing Status-RUE Weight Bearing as Tolerated RLE Assessment RLE Assessment WDL RLE Sensation WFL LLE Assessment LLE Assessment WDL LLE Sensation WFL Treatment Time Treatment Start Time 814 Physical Therapy Treatment Summary Note 10/03/2018 Mandie Cotter [id number] Referring Physician:Jennifer Kay MD Referral Diagnosis: 1. Cervical stenosis of spinal canal 2. Herniated nucleus pulposus, C3-4 left 3. Osteoarthritis of cervical spine, unspecified spinal osteoarthritis complication status 4. Stenosis of cervical spine Comorbidities impacting plan of care: Problem List: decreased Strength ,Transfer And Gait Skills , Decreased Balance, Fall Risk, InstructAnd Educate To Improve Quality Of Life. Functional Limitation: 000 per [facility] Rationale for Therapy: Patient will benefit [...] Reach Addison Paul, PT 10/03/2018 8:57 AM ATION SPECIALIST * Mireya Fernandez, PharmD - 10/03/2018 8:20 AM CST Medication Reconciliation Note Reviewed med list prior to discharge. Oxycodone-APAP script printed by physician. Mireya Fernandez PharmD 10/03/2018 8:20 AM ATION SPECIALIST * Gee Chávez RN - 10/03/2018 7:36 AM CST End of shift note. Chart review complete. Numbness and tingling to LUE continues. No distress or concerns voiced. ATION SPECIALIST * Gee Chávez RN - 10/03/2018 12:00 AM CST Problem: Pain/Discomfort Goal: Patient verbalizes acceptable level of pain relief and ability to engage in desired activity. Outcome: Ongoing Pt verbalizes acceptable level of pain relief. Problem: Low Fall Risk (Score 7-10) Goal: Patient will remain safe from falls and injury. Outcome: Ongoing Pt remains safe from falls and injury. ATION SPECIALIST * Gee Chávez RN - 10/02/2018 10:11 PM CST Pt refused co2 monitoring at this time. Educated on importance of same. ATION SPECIALIST documented in this encounter OR Notes * Operative - Jennifer Kay MD - 10/03/2018 3:36 AM CST [facility] Operative Report PATIENT NAME: MANDIE COTTER#: [id number] CSN: [id number] CLASS: I/P ADMISSION DATE: 10/02/2018ROOM#: [id number] PRIMARY MD: SEX: M ATTENDING MD: JENNIFER HOBBSOB: 1955 SURGEON: Jennifer Kay M.D. DICTATOR: JENNIFER KAY M.D. SURGERY DATE: 10/02/2018 FACILITY: Main operating room, [place], [place]. PREOPERATIVE DIAGNOSIS: Cervical spondylosis, stenosis, and [...] then anterior cervical plating, C3-4 and C6-7. TRANSPORT TECHNICIAN: Galina Hummel, nurse practitioner. ANESTHESIA: General. ESTIMATED BLOOD LOSS: 150 cc. FLUID REPLACEMENT: 2000 cc crystalloid. SPECIMEN: C3-4 and C6-7 discs. COMPLICATIONS: None. CONDITION: At the end of the procedure was stable. URINE OUTPUT: Not monitored during the procedure. 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 He started developing radicular left arm pain [...] by his primary care physician, admitted to [facility] on October 02, 2018. DESCRIPTION OF PROCEDURE: [...] allow visualization of lower cervical spine. Lateral advance scout x-ray was taken which showed our ability [...] isolated and incised using Bovie cautery. My nurseryman assistant then held a handheld appendiceal retractor [...] it, and then placed a Cloward lamina structural iron erector on the right side of the disk [...] bodies of C6 and C7. Cloward lamina structural iron erector was removed and the graft was countersunk [...] was then taken confirming my position. My nurseryman assistant again held appendiceal retractors to retract [...] much as the C6-7 one. Cloward lamina structural iron erector was placed on the right side. Subtotal [...] flushed withthe vertebral bodies of C3-4. Lamina structural iron erector was removed. I countersunk the graft about [...] disks. ADDENDUM: Galina Hummel, nurse practitioner, was boilermaker's assistant for this procedure. Her responsibilities included, [...] could not have been done without a boilermaker's assistant. Jennifer Kay M.D. SARAH/MAXIME /[id number] cc: Jennifer Kay M.D. OPERATIVE REPORT - OP ATION SPECIALIST * Brief Op Note - Jennifer Kay [...] Role: * Jennifer Kay MD - Primary Notching Press Operator(s): Galina Hummel NP Anesthesia Type: general Complications: [...] MD 10/02/2018 3:15 PM Jennifer Kay MD ATION SPECIALIST documented in this encounter Plan of Treatment Not on file documented as of this encounter Procedures Procedure Name Priority Date/Time Associated Diagnosis Comments CARDIAC RHYTHM STRIP ORDER 10/04/2018 2:06 PM OPERATION SPECIALIST OT EVAL AND TREAT Routine 10/02/2018 7:29 PM OPERATION SPECIALIST PT EVAL AND TREAT Routine 10/02/2018 7:29 PM OPERATION SPECIALIST XR CERVICAL SPINE 2 OR 3VW STAT 10/02/2018 5:55 PM OPERATION SPECIALIST Herniated nucleus pulposus, C3-4 left Osteoarthritis of cervical spine, unspecified spinal osteoarthritis complication status Stenosis of cervical spine GROSS + MICRO EXAM (ILL) Routine 10/02/2018 3:14 PM OPERATION SPECIALIST Herniated nucleus pulposus, C3-4 left Osteoarthritis of cervical spine, unspecified spinal osteoarthritis complication status Stenosis of cervical spine DISCECTOMY WITH FUSION ANTERIOR CERVICAL (ACDF) MULTI-LEVEL 10/02/2018 12:23 PM OPERATION SPECIALIST Herniated nucleus pulposus, C3-4 left Osteoarthritis of cervical spine, unspecified spinal osteoarthritis complication status Stenosis of cervical spine Special Needs BONE SPACERS, SYNTHES VECTRA-T PLATESNOTIFIED MANJITGAEL @ [employer] BLOOD TYPE VERIFICATION Routine 10/02/2018 10:17 AM OPERATION SPECIALIST documented in this encounter Results * CARDIAC RHYTHM STRIP ORDER (10/04/2018 2:06 PM OPERATION SPECIALIST) Narrative 10/04/2018 2:06 PM OPERATION SPECIALIST Ordered by an unspecified provider. Scanned Document CARDIAC SERVICES ORD ERABLES * XR CERVICAL SPINE 2 OR 3 VW 34845 (10/02/2018 5:55 PM OPERATION SPECIALIST) Anatomical Region Laterality Modality Spine Radiographic Leola ging 10/02/2018 6:04 PM OPERATION SPECIALIST Impressions 10/02/2018 6:05 PM OPERATION SPECIALIST Anterior fusion hardware is in place at C6-C7 with intervertebral graft. Bones and hardware are in good alignment at conclusion of exam. Narrative 10/02/2018 6:05 PM OPERATION SPECIALIST PROCEDURE: XR CERVICAL SPINE 2 OR 3VW [...] + MICRO EXAM (ILL) (10/02/2018 3:14 PM OPERATION SPECIALIST) Case Report Surgical Pathology Report ? Case: [id number] ? Authorizing Provider: ??Jennifer Kay MD ?Collected: ? 10/02/2018 03:14 PM ? Ordering Location: ? [facility] ? Received: ?10/03/2018 06:56 AM ? Pathologist: ? Julian Alexis MD ? Specimen: ?Disc Tissue, C3-4;C6-7 ? 10/05/2018 9:19 AM OPERATION SPECIALIST [facility] Final Diagnosis DISC FRAGMENTS, C3-4 AND C6-7, ANTERIOR CERVICAL DISCECTOMY WITH FUSION: - FRAGMENTS OF DEGENERATING FIBROCARTILAGINOUS DISC. - FRAGMENTS OF UNREMARKABLE BONE. - NEGATIVE FOR ACUTE INFLAMMATION AND NEOPLASM. ZOË/jzr 10/05/2018 9:19 AM OPERATION SPECIALIST [facility] Clinical History Herniated nucleus pulposus, C3-4 left; Osteoarthritis of cervical spine. 10/05/2018 9:19 AM OPERATION SPECIALIST [facility] Gross Description Specimen received in formalin labeled Mandie Cotter labeled as ? disc tissue C3-C4; C6-7? , consists of irregular fragments of warren-white to warren-brown soft tissue and cartilage tissue together aggregating 3 cm. There is no abnormal pigmentation. Specimen is submitted in one cassette after decalcification. RP/jzr 10/05/2018 9:19 AM OPERATION SPECIALIST [facility] Microscopic Description Microscopic examination is performed and substantiates the above diagnosis. 10/05/2018 9:19 AM OPERATION SPECIALIST [facility] Performed By Performed by [facility] Pathology at [facility], [place]. [address] 10/05/2018 9:19 AM OPERATION SPECIALIST [facility] Embedded Images 10/05/2018 9:19 AM OPERATION SPECIALIST [facility] Pathology/Cytol ogy SPECIMEN FROM INTERVERTEBRAL DISC / Unknown 10/02/2018 3:14 PM OPERATION SPECIALIST 10/03/2018 6:56 AM OPERATION SPECIALIST Jennifer Kay MD LAB - PATHOLOGY/CYTO LOGY ORDERABLES [facility] [address] * BLOOD TYPE VERIFICATION (10/02/2018 10:17 AM OPERATION SPECIALIST) ABO O 10/02/2018 11:07 AM OPERATION SPECIALIST [facility] Rh Type Positive 10/02/2018 11:07 AM OPERATION SPECIALIST [facility] Blood Bank BLOOD SPECIMEN / Unknown Lab Venipuncture / Unknown 10/02/2018 10:17 AM OPERATION SPECIALIST 10/02/2018 10:38 AM OPERATION SPECIALIST Jennifer Kay MD LAB - BLOOD BANK ORD ERABLES Performing Organization Address City/[facility]/ZIP Co de Phone Number [facility] [address] documented in this encounter Visit Diagnoses [...] 0845, Post-op Current Rate 10/03/2018 7:37 AM OPERATION SPECIALIST 125 m L/hr Current Rate 10/03/2018 6:42 AM OPERATION SPECIALIST 125 mL/hr Restarted 10/03/2018 5:51 AM OPERATION SPECIALIST 125 mL/hr aspirin (ASPIRIN) chew tablet 81 mg 81 mg, Oral, DAILY, 365 doses, First dose on Mon10/02/18 at 1930, Last dose on Mon10/01/19 at 0900, Post-op $ Given 10/03/2018 9:38 AM OPERATION SPECIALIST 81 mg $ Given 10/02/2018 7:48 PM OPERATION SPECIALIST 81 mg bisacodyl (DULCOLAX) suppository 10 mg [...] prophylaxis, Post-op Current Rate 10/03/2018 6:12 AM OPERATION SPECIALIST 100 mL/hr $ New Bag/Syringe 10/03/2018 6:11 AM OPERATION SPECIALIST 2,000 mg 100 mL /hr Current Rate 10/02/2018 9:55 PM OPERATION SPECIALIST 100 mL/hr docusate sodium (COLACE) capsule 100 mg 100 mg, Oral, 2 TIMES DAILY, First dose on Mon10/02/18 at 2100, Until Discontinued, Post-op $ Given 10/03/2018 9:38 AM OPERATION SPECIALIST 100 mg $ Given 10/02/2018 9:27 PM OPERATION SPECIALIST 100 mg ezetimibe-simvastatin (VYTORIN) 10-10 MG tablet 1 tablet 1 tablet, Oral, AT BEDTIME, 365 doses, First dose on Mon10/02/18 at 2245, Last dose on Mon10/01/19 at 2100 $ Given 10/02/2018 10:18 PM OPERATION SPECIALIST 1 tablet famotidine (PEPCID) injection 20 mg 20 mg, Intravenous, PRE-OP ONCE, 1 dose, On Mon10/02/18 at 0956, Dilute 2 mL of injection with 0.9% NaCl or D5W solution to a volume of 5 to 10 ml. Push over a period of at least 2 minutes., Pre-op $ Given 10/02/2018 10:24 AM OPERATION SPECIALIST 20 mg HYDROmorphone (DILAUDID) 20 mg/100ml REMELT PAN TANK OPERATOR Intravenous, REMELT PAN TANK OPERATOR, Starting on Mon10/02/18 at 1745, Until Mon10/03/18 at 0845, - Bolus Dose:0.5 mg - REMELT PAN TANK OPERATOR Dose: 0.1 mg - Lockout: 20 minutes - 1 hour limit: 0.7 mg - Continuous Dose: 0.4 mg/hr. If respiratory depression is present (less than 8/minute), stop REMELT PAN TANK OPERATOR and administer naloxone (NARCAN) 0.4 mg every 30 seconds PRN up to 2 mg. Administer 100% oxygen while respiratory depression persists. NOTIFY PHYSICIAN IMMEDIATELY., Post-op $ New Bag/Syringe 10/02/2018 6:01 PM OPERATION SPECIALIST lactated ringers infusion at 20 mL/hr, Intravenous, PRE-OP CONTINUOUS, Starting on Mon10/02/18 at 1000, Until Mon10/02/18 at 1857, Pre-op $ New Bag/Syringe 10/02/2018 4:35 PM OPERATION SPECIALIST $ New Bag/Syringe 10/02/2018 1:15 PM OPERATION SPECIALIST $ New Bag/Syringe 10/02/2018 10:19 AM OPERATION SPECIALIST 20 mL /hr lidocaine (XYLOCAINE MPF) 1 % injection 0.2 mL 0.2 mL, Infiltration, PRE-OP MULTIPLE, 3 doses, Starting on Mon10/02/18 at 0956, Until Mon10/02/18 at 1857, May be used (0.2 ml locally to anesthetize prior to insertion)., Pre-op $ Given 10/02/2018 10:12 AM OPERATION SPECIALIST 0.2 mL magnesium hydroxide (MILK OF MAGNESIA) suspension 30 mL 30 mL, Oral, DAILY PRN, Constipation, Starting on Mon10/02/18 at 1929, Until Mon10/03/18 at 1652, Use MOM first. If MOM ineffective then use bisacodyl. If bisacodyl ineffective use Fleets enema. Shake well before using., Post-op $ Given 10/02/2018 7:48 PM OPERATION SPECIALIST 30 mL midazolam (VERSED) injection 2 mg 2 mg, Intravenous, PRE-OP ONCE, 1 dose, On Mon10/02/18 at 0956, Pre-op $ Given 10/02/2018 12:18 PM OPERATION SPECIALIST 2 mg oxyCODONE-acetaminophen (PERCOCET) 7.5-325 MG tablet 1 tablet 1 tablet, Oral, EVERY 4 HOURS PRN, Moderate Pain, Starting on Mon10/03/18 at 0844, Until Mon10/03/18 at 1652 oxyCODONE-acetaminophen (PERCOCET) 7.5-325 MG tablet 2 tablet 2 tablet, Oral, EVERY 4 HOURS PRN, Severe Pain, Starting on Mon10/03/18 at 0845, Until Mon10/03/18 at 1652 $ Given 10/03/2018 9:38 AM OPERATION SPECIALIST 2 tablet s pantoprazole (PROTONIX) injection 40 mg 40 mg, Intravenous, DAILY, 365 doses, First dose on Mon10/02/18 at 1930, Last dose on Mon10/01/19 at 0900, For every 40 mg of pantoprazole mix with 10 mL Normal Saline (final concentration = 4 mg/mL). Inject SLOWLY over 2 min., Post-op $ Given 10/03/2018 9:38 AM OPERATION SPECIALIST 40 mg $ Given 10/02/2018 7:48 PM OPERATION SPECIALIST 40 mg sodium phosphate rectal (FLEET SALINE) enema 133 mL 133 mL (1 enema), Rectal, DAILY PRN, Constipation, Starting on Mon10/02/18 at 1929, Until Mon10/03/18 at 1652, Use MOM first. If MOM ineffective then use bisacodyl. If bisacodyl ineffective use Fleets enema., Post-op documented in this encounter Active and Recently Administered Medications Times are shown in OPERATION SPECIALIST. Scheduled Medication Order 10/01/2018 10/02/2018 10/03/2018 aspirin [...] 1240 ($ Given - Provider: Jaz العراقي APRN-MULTICULTURAL SERVICES LIBRARIAN) ceFAZolin (ANCEF) 2,000 mg in 50 ml [...] Chávez RN)0350 (Current Rate - Provider: Gee Cáhvez RN)0350 ($ New Bag/Syringe - Provider: Gee [...] Kaci Diaz RN) HYDROmorphone (DILAUDID) 20 mg/100ml REMELT PAN TANK OPERATOR (CANCELED) Intravenous, REMELT PAN TANK OPERATOR, Starting on Mon10/02/18 at 1745, Until Mon10/03/18 at 0845, - Bolus Dose:0.5 mg - REMELT PAN TANK OPERATOR Dose: 0.1 mg - Lockout: 20 minutes - 1 hour limit: 0.7 mg - Continuous Dose: 0.4 mg/hr. If respiratory depression is present (less than 8/minute), stop REMELT PAN TANK OPERATOR and administer naloxone (NARCAN) 0.4 mg every [...] ($ New Bag/Syringe - Provider: Jaz العراقي APRN-MULTICULTURAL SERVICES LIBRARIAN)1635 ($ New Bag/Syringe - Provider: Anupam Valdez APRN-MULTICULTURAL SERVICES LIBRARIAN)1726 (Anesthesia Volume Adjustment - Provider: Rasheed Abraham APRN-MULTICULTURAL SERVICES LIBRARIAN) PRN Medication Order 10/01/2018 10/02/2018 10/03/2018 acetaminophen (TYLENOL) tablet 650 mg 650 mg, Oral, EVERY 4 HOURS PRN, Fever, For temperature GREATER than 101 , Starting on Mon10/02/18 at 192, Until Mon10/03/18 at 1652, Maximum allowable Acetaminophen amount = 4 Grams (4000 mg) / 24 hours., Post-op euaqymtw-yyhctvfdb-fcthquhoe ne (MAALOX;MYLANTA) suspension 20 mL 20 mL, [...] Post-op documented in this encounter Care Teams Tactical Intelligence Officer Relationship Specialty Start Date End Date Yosvany Gonsalez MD [address] [place] [address] [place] [phone] PCP - General Internal Medicine 04/08/13 09/03/19 documented as of this encounter
--- OUTSIDE RECORDS SUMMARY | 2024-11-02 09:06 | XMS_ITS | Encounter Summary ---
Author Organization [facility] Address [address] [place] [address] Care Team Providers Care Dental Detail Representative Name Role Phone Yosvany Gonsalez MD Primary Care Provider [phone] Reason for Visit * Reason Onset Date Comments Results 02/22/2019 Encounter Details Date Type Department Care Team (Late st Contact Info) Description 02/22/2019 Telephone [facility] - Family Medicine [address] [phone] Yosvany Gonsalez MD [address] [place] [phone] Results Social History Tobacco Use Types Packs/Day [...] on filedocumented in this encounter Care Teams Dental Detail Representative Relationship Specialty Start Date End Date Yosvany Gonsalez MD [address] [place] [phone] PCP - General Internal Medicine 04/08/13 09/03/19 documented as of this encounter
--- OUTSIDE RECORDS SUMMARY | 2024-11-02 09:06 | XMS_ITS | Encounter Summary ---
Author Organization [facility] Address [address] [place] [address] Care Team Providers Care Lining Strap Closer Name Role Phone Yosvany Gonsalez MD Primary Care Provider [phone] Reason for Visit * Reason Onset Date Comments Question 03/13/2017 Encounter Details Date Type Department Care Team (Late st Contact Info) Description 03/13/2017 Telephone [facility] Medical [facility] - Family Medicine [address] [phone] Yosvany Gonsalez MD [address] [place] [address] Question Social History Tobacco Use [...] on filedocumented in this encounter Care Teams Lining Strap Closer Relationship Specialty Start Date End Date Yosvany Gonsalez MD [address] [place] [phone] PCP - General Internal Medicine 04/08/13 09/03/19 documented as of this encounter
--- OUTSIDE RECORDS SUMMARY | 2024-11-02 09:06 | XMS_ITS | Encounter Summary ---
Author Organization [facility] Address [address] [place] [address] Care Team Providers Care Manager Data Name Role Phone Yosvany Gonsalez MD Primary Care Provider [phone] Reason for Visit * Reason Onset Date Comments General 04/12/2018 Encounter Details Date Type Department Care Team (Late st Contact Info) Description 04/12/2018 Telephone [facility] Medical [facility] - Family Medicine [address] [phone] Yosvany Gonsalez MD [address] [place] [address] General Social History Tobacco Use [...] work. If he does, please send to [facility]. Please call documented in this [...] ACID BLOOD (04/16/2018 7:47 AM CDT) Pathologist [facility] Uric Acid 6.6 4.0 - 8.0 mg/dL [facility] Comment: Therapeutic target for gout patients: <6.0 mg/dL ?? Test Performed at: [facility] [id number] [place] [address] ??[phone] MICHEL LEO DO,MPH Blood BLOOD SPECIMEN / Unknown 04/16/2018 7:47 AM CDT 04/16/2018 7:48 AM CDT Yosvany Gonsalez MD LAB - CHEMISTRY VIVIANA ADAMS Performing Organization Address [facility] de Phone Number [facility] [phone] [place] [address] * PROSTATE SPECIFIC ANTIGEN SCREEN (04/16/2018 7:47 AM CDT) [facility] PSA 0.8 < OR = 4.0 [...] or absence of disease. Test Performed at: [facility] [place] ??[phone] MICHEL LEO DO,MPH Blood BLOOD SPECIMEN / Unknown 04/16/2018 7:47 AM CDT 04/16/2018 7:48 AM CDT Yosvany Gonsalez MD LAB - CHEMISTRY VIVIANA ADAMS Performing Organization Address [facility] Co de Phone Number [facility] [address] [place] [address] * TSH (04/16/2018 7:47 AM CDT) [facility] TSH 1.59 0.40 - 4.50 mIU/L [facility] Comment: Test Performed at: [facility] [address] [place], [place] ??[address] MICHEL LEO DO,MPH Blood BLOOD SPECIMEN / Unknown 04/16/2018 7:47 AM CDT 04/16/2018 7:48 AM CDT Yosvany Gonsalez MD LAB - CHEMISTRY VIVIANA ADAMS Performing Organization Address [facility] Co de Phone Number [place] [phone] [place] [address] * T4 FREE (04/16/2018 7:47 AM CDT) T4 Free 1.2 0.8 - 1.8 ng/dL [facility] Comment: Test Performed at: [facility] [address] [place] ??[address] MICHEL LEO DO,MPH Blood BLOOD SPECIMEN / Unknown 04/16/2018 7:47 AM CDT 04/16/2018 7:48 AM CDT Yosvany Gonsalez MD LAB - CHEMISTRY VIVIANA ADAMS Performing Organization Address [facility] [place] [address] * (ABNORMAL) LIPID PROFILE (04/16/2018 7:47 AM [...] LDL-C. Armani STEPHEN et al. RODOLFO. 2013;310(19): 2118-9365 (http://education.Lupatech.Veraz Networks/faq/OEB970) CHOL/HDLC RATIO 4.2 <5.0 (calc) [facility] Non HDL Cholesterol 134(H) <130 mg/dL (calc) [facility] Comment: For patients with diabetes plus 1 major ASCVD risk factor, treating to a non-HDL-C goal of <100 mg/dL (LDL-C of <70 mg/dL) is considered a therapeutic option. Test Performed at: [facility] [address] [place] ??[phone] MICHEL LEO DO,MPH Blood BLOOD SPECIMEN / Unknown 04/16/2018 7:47 AM CDT 04/16/2018 7:48 AM CDT Yosvany Gonsalez MD LAB - CHEMISTRY VIVIANA ADAMS Performing Organization Address [facility] de Phone Number [employer] [address] [place] [address] * HEMOGLOBIN A1C (04/16/2018 7:47 AM CDT) [...] diagnosis of diabetes in children. According to [place] Diabetes Association (ADA) guidelines, hemoglobin A1c <7.0% represents optimal control in non- diabetic patients. Different metrics may apply to specific patient populations. Standards of Medical Care in Diabetes(ADA). ?? REPORT COMMENT: FASTING:YES Test Performed at: [facility] [address] [place] ??[address] MICHEL LEO DO,MPH Whole Blood BLOOD SPECIMEN WITH EDTA / Unknown 04/16/2018 7:47 AM CDT 04/16/2018 7:48 AM CDT Yosvany Gonsalez MD LAB - CHEMISTRY VIVIANA ADAMS Performing Organization Address [facility]/ZIP Co de Phone Number [facility] [address] [place] [phone] * COMPREHENSIVE METABOLIC PANEL (04/16/2018 7:47 AM CDT) Pathologist [facility] Glucose 96 65 - 99 mg/dL [facility] Comment: ? Fasting reference interval BUN 14 7 - 25 mg/dL [facility] Creatinine 0.80 0.70 - 1.25 mg/dL [facility] Comment: For patients >49 years of age, the reference limit for Creatinine is approximately 13% higher for people identified as -Colombian. eGFR by MDRD 95 > OR = [...] 46 U/L [facility] Comment: Test Performed at: [facility] [address] ??[phone] IMCHEL LEO DO,MPH Blood BLOOD SPECIMEN / Unknown 04/16/2018 7:47 AM CDT 04/16/2018 7:48 AM CDT Yosvany Gonsalez MD LAB - CHEMISTRY VIVIANA ADAMS [facility] [address] [place] [address] * CBC W AUTO DIFFERENTIAL (04/16/2018 7:47 AM CDT) Pathologist [facility] White Blood Cell Count 4.7 3.8 - [...] 0.9 % [facility] Comment: Test Performed at: [facility] [address] [place] [address] ??[phone] MICHEL LEO DO,MPH Blood BLOOD SPECIMEN / Unknown 04/16/2018 7:47 AM CDT 04/16/2018 7:48 AM CDT Yosvany Gonsalez MD LAB - HEMATOLOGY ORD ERABLES Performing Organization Address City/State/[facility] Co de Phone Number [facility] [address] [place] [address] documented in this encounter Visit Diagnoses Diagnosis Annual physical exam- Primary Routine general medical examination at a health care facility High risk medications (not anticoagulants) long-term use Encounter for long-term (current) use of other medications Special screening for malignant neoplasm of prostate Mixed hyperlipidemia Fatigue, unspecified type Abnormal glucose documented in this encounter Care Teams Manager Data Relationship Specialty Start Date End Date Yosvany Gonsalez MD [address] [place] [phone] PCP - General Internal Medicine 04/08/13 09/03/19 documented as of this encounter
--- OUTSIDE RECORDS SUMMARY | 2024-11-02 09:06 | XMS_ITS | Encounter Summary ---
Author Organization [facility] Address [address] [place] [address] Care Team Providers Care Strategies Analyst Name Role Phone Yosvany Gonsalez MD Primary Care Provider [phone] Reason for Visit * Reason Comments Refill Request Encounter Details Date Type Department Care Team (Late st Contact Info) Description 12/15/2017 Refill [facility] Medical [facility] - Family Medicine [address] [phone] Yosvany Gonsalez MD [address] [place] [phone] Refill Request Social History Tobacco Use Types [...] on filedocumented in this encounter Care Teams Strategies Analyst Relationship Specialty Start Date End Date Yosvany Gonsalez MD [address] [phone] PCP - General Internal Medicine 04/08/13 09/03/19 documented as of this encounter
--- OUTSIDE RECORDS SUMMARY | 2024-11-02 09:06 | XMS_ITS | Encounter Summary ---
Author Organization [facility] Address [address] 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 * Telephone Encounter - Yosvany Gonsalez MD - 04/18/2017 1:51 PM CDT Ordered for [facility] * Telephone Encounter - Wilma Lomeli LPN - 04/18/2017 1:37 PM CDT Patient message: Patient is requesting to continuous pickling line pickler helper lab orders today after 4 pm. They need to go to [facility]; please advise. ?? Pt appt on the . [facility] orders PLEASE * Telephone Encounter - Olga Lidia Giles - 04/18/2017 1:32 PM CDT Patient is requesting to continuous pickling line pickler helper lab orders today after 4 pm. They [...] approximately 13% higher for people identified as -Dutch. eGFR by MDRD 96 > OR = [...] 46 U/L [facility] Comment: Test Performed at: [facility] [id number] [place] [address] ??[phone] MICHEL LEO DO,MPH Blood BLOOD SPECIMEN / Unknown 04/19/2017 7:13 AM CDT 04/19/2017 7:14 AM CDT Yosvany Gonsalez MD LAB - CHEMISTRY VIVIANA ADAMS Performing Organization Address [facility] Co de Phone Number [facility] [address] [place] [address] * CBC W AUTO DIFFERENTIAL (04/19/2017 7:13 AM CDT) Pathologist [facility] White Blood Cell Count 4.9 3.8 - [...] 1.2 % [facility] Comment: Test Performed at: [place], [place] ??[address] MICHEL LEO DO,MPH Blood BLOOD SPECIMEN / Unknown 04/19/2017 7:13 AM CDT 04/19/2017 7:14 AM CDT Yosvany Gonsalez MD LAB - HEMATOLOGY KEILA ALVARADO Performing Organization Address [facility] Co de Phone Number [facility] [address] [place] [phone] * URIC ACID BLOOD (04/19/2017 7:11 AM CDT) [facility] Uric Acid 7.0 4.0 - 8.0 mg/dL [facility] Comment: Therapeutic target for gout patients: <6.0 mg/dL ?? Test Performed at: [place], [place] ??[address] MICHEL LEO DO,MPH Blood BLOOD SPECIMEN / Unknown 04/19/2017 7:11 AM CDT 04/19/2017 7:12 AM CDT Yosvany A [facility] LAB - CHEMISTRY VIVIANA ADAMS Performing Organization Address [facility] Co de Phone Number [facility] [phone] [place], [place] [phone] * T4 FREE (04/19/2017 7:11 AM CDT) T4 Free 1.1 0.8 - 1.8 ng/dL [facility] Comment: Test Performed at: [place], [place] ??[phone] MICHEL LEO DO,MPH Blood BLOOD SPECIMEN / Unknown 04/19/2017 7:11 AM CDT 04/19/2017 7:12 AM CDT Yosvany A [facility] LAB - CHEMISTRY VIVIANA ADAMS Performing Organization Address [facility] Co de Phone Number [facility] [phone] [place] [address] * TSH (04/19/2017 7:11 AM CDT) Pathologist [facility] TSH 1.80 0.40 - 4.50 mIU/L [facility] Comment: Test Performed at: [place], [place] ??[address] MICHEL LEO DO,MPH Blood BLOOD SPECIMEN / Unknown 04/19/2017 7:11 AM CDT 04/19/2017 7:12 AM CDT Yosvany A [facility] LAB - CHEMISTRY VIVIANA ADAMS Performing Organization Address [facility] Co de Phone Number [facility] [phone] [place] [address] * LIPID PROFILE (04/19/2017 7:11 AM CDT) Cholesterol 181 125 - 200 mg/dL [facility] Comment: Test Performed at: [facility] [address] [place], [place] ??[address] MICHEL LEO DO,MPH HDL Cholesterol 50 > [...] - CHEMISTRY VIVIANA ADAMS Performing Organization Address [facility] Co de Phone Number [facility] [address] [place] [address] * (ABNORMAL) HEMOGLOBIN A1C (04/19/2017 7:11 AM [...] of diabetes for children. Test Performed at: [facility] [address] [place], [place] ??[address] MICHEL LEO DO,MPH Whole Blood BLOOD SPECIMEN WITH EDTA / Unknown 04/19/2017 7:11 AM CDT 04/19/2017 7:12 AM CDT Yosvany Gonsalez MD LAB - CHEMISTRY VIVIANA ADAMS Performing Organization Address [facility] Co de Phone Number [facility] [address] [place] [address] documented in this encounter Visit Diagnoses Diagnosis Mixed hyperlipidemia Cigarette nicotine dependence without complication Tobacco use disorder Special screening for malignant neoplasm of prostate High risk medications (not anticoagulants) long-term use Encounter for long-term (current) use of other medications RANDY on CPAP Obstructive sleep apnea (adult) (pediatric) documented in this encounter Care Teams Legal Support Assistant Relationship Specialty Start Date End Date Yosvany Gonsalez MD [address] [phone] PCP - General Internal Medicine 04/08/13 09/03/19 documented as of this encounter
--- OUTSIDE RECORDS SUMMARY | 2024-11-02 09:06 | XMS_ITS | Encounter Summary ---
Author Organization [facility] Address [address] [place] [address] Care Team Providers Care Commissioner Of Conciliation Name Role Phone Yosvany Gonsalez MD Primary Care Provider [phone] Reason for Visit * Reason Onset Date Comments MEDICATION REFILL 12/29/2016 Encounter Details Date Type Department Care Team (Late st Contact Info) Description 12/29/2016 Refill [facility] Medical [facility] - Family Medicine [address] [place] [phone] Yosvany Gonsalez MD [address] [place] [address] MEDICATION REFILL Social History Tobacco [...] 12/29/2016 3:56 PM CST RF per protocol. BAGGER documented in this encounter Plan of Treatment Not on file documented as of this encounter Visit Diagnoses Not on filedocumented in this encounter Care Teams Commissioner Of Conciliation Relationship Specialty Start Date End Date Yosvany Gonsalez MD [address] [place] [phone] PCP - General Internal Medicine 04/08/13 09/03/19 documented as of this encounter
--- OUTSIDE RECORDS SUMMARY | 2024-11-02 09:07 | XMS_ITS | Encounter Summary ---
Author Organization [facility] Address [address] [place] [address] Care Team Providers Care Epic Willow Specialist Name Role Phone Yosvany Gonsalez MD Primary Care Provider [phone] Reason for Visit * Reason Comments Cough Swelling Gland Cold Symptoms Encounter Details Date Type Department Care Team (Late st Contact Info) Description 07/05/2015 11:15 AM CDT Office Visit [facility] [address] [phone] Provider1, [facility] Chronic bronchitis (HCC) (Primary Dx) [...] hard to breathe or swallow. ?? 2014 [employer] Information is for End User's use only and may not be sold, redistributed or otherwise used for commercial purposes. All illustrations and images included in CareNotes?? are the copyrighted property of [employer] or [employer]. The above information is an first aid trainer only. It is not intended as medical [...] 59 y.o. male presents today at the [facility] with complaints of productive cough x 5 [...] hard to breathe or swallow. ?? 2015 [employer]. Information is for End User's use only and may not be sold, redistributed or otherwise used for commercial purposes. All illustrations and images included in CareNotes?? are the copyrighted property of [employer]D.[employer] Inc. or [employer]. The above information is an first aid trainer only. It is not intended as medical [...] Primary documented in this encounter Care Teams Epic Willow Specialist Relationship Specialty Start Date End Date Yosvany Gonsalez MD [address] [place] [phone] PCP - General Internal Medicine 04/08/13 09/03/19 documented as of this encounter
--- OUTSIDE RECORDS SUMMARY | 2024-11-02 09:07 | XMS_ITS | Encounter Summary ---
Author Organization [facility] Address [address] [place] [address] Care Team Providers Care Mortgage Manager Name Role Phone Yosvany Gonsalez MD Primary Care Provider [phone] Encounter Details Date Type Department Care Team (Late st Contact Info) Description 10/11/2016 Orders Only [facility] - Family Medicine [address] [phone] Yosvany Gonsalez MD [address] [place] [phone] Social History Tobacco Use Types Packs/Day Years [...] Comments URIC ACID BLOOD 10/11/2016 8:11 AM COMMERCIAL ACCOUNT EXECUTIVE HEMOGLOBIN A1C 10/11/2016 8:11 AM COMMERCIAL ACCOUNT EXECUTIVE CBC W AUTO DIFFERENTIAL 10/11/2016 8:11 AM COMMERCIAL ACCOUNT EXECUTIVE COMPREHENSIVE METABOLIC PANEL 10/11/2016 8:11 AM COMMERCIAL ACCOUNT EXECUTIVE PROSTATE SPECIFIC ANTIGEN SCREEN 10/11/2016 8:11 AM COMMERCIAL ACCOUNT EXECUTIVE TSH 10/11/2016 8:11 AM COMMERCIAL ACCOUNT EXECUTIVE LIPID PROFILE 10/11/2016 8:11 AM COMMERCIAL ACCOUNT EXECUTIVE documented in this encounter Results * (ABNORMAL) HEMOGLOBIN A1C (10/11/2016 8:11 AM COMMERCIAL ACCOUNT EXECUTIVE) Hemoglobin A1c 5.7(H) <5.7 % of total [...] of diabetes for children. Test Performed at: [facility] [address] [place], [place] ??[address] MICHEL LEO DO,MPH 10/11/2016 8:11 AM COMMERCIAL ACCOUNT EXECUTIVE 10/11/2016 8:12 AM COMMERCIAL ACCOUNT EXECUTIVE Yosvany Gonsalez MD LAB - CHEMISTRY VIVIANA ADAMS [facility] Organization Address City/State/[facility] de Phone Number [facility] [address] [place] [address] * PROSTATE SPECIFIC ANTIGEN SCREEN (10/11/2016 8:11 AM COMMERCIAL ACCOUNT EXECUTIVE) PSA 0.7 < OR = 4.0 ng/mL [facility] Comment: This test was performed using the Siemens chemiluminescent method. Values obtained from different assay methods cannot be used interchangeably. PSA levels, regardless of value, should not be interpreted as absolute evidence of the presence or absence of disease. Test Performed at: [facility] [facility] [address] [place], [place] ??[address] MICHEL LEO DO,MPH 10/11/2016 8:11 AM COMMERCIAL ACCOUNT EXECUTIVE 10/11/2016 8:12 AM COMMERCIAL ACCOUNT EXECUTIVE Yosvany Gonsalez MD LAB - CHEMISTRY VIVIANA ADAMS Performing Organization Address [facility] Co de Phone Number [facility] [address] [place] [address] * TSH (10/11/2016 8:11 AM COMMERCIAL ACCOUNT EXECUTIVE) [facility] TSH 1.31 0.40 - 4.50 mIU/L [facility] Comment: Test Performed at: [employer] [place], [place] ??[address] MICHEL LEO DO,MPH 10/11/2016 8:11 AM COMMERCIAL ACCOUNT EXECUTIVE 10/11/2016 8:12 AM COMMERCIAL ACCOUNT EXECUTIVE Yosvany Gonsalez MD LAB - CHEMISTRY VIVIANA ADAMS Performing Organization Address [facility] de Phone Number [facility] [address] [place] [address] * CBC W AUTO DIFFERENTIAL (10/11/2016 8:11 AM COMMERCIAL ACCOUNT EXECUTIVE) [facility] White Blood Cell Count 5.2 3.8 [...] 0.5 % [facility] Comment: Test Performed at: [facility] [place] ??[address] MICHEL LEO DO,MPH 10/11/2016 8:11 AM COMMERCIAL ACCOUNT EXECUTIVE 10/11/2016 8:12 AM COMMERCIAL ACCOUNT EXECUTIVE Yosvany Gonsalez MD LAB - HEMATOLOGY ORD ERABLES [facility] [address] [place] [address] * COMPREHENSIVE METABOLIC PANEL (10/11/2016 8:11 AM COMMERCIAL ACCOUNT EXECUTIVE) Glucose 97 65 - 99 mg/dL [facility] Comment: ? Fasting reference interval BUN 17 7 - 25 mg/dL [facility] Creatinine 0.80 0.70 - 1.25 mg/dL [facility] Comment: For patients >49 years of age, the reference limit for Creatinine is approximately 13% higher for people identified as -Belgian. eGFR by MDRD 96 > OR = [...] 46 U/L [facility] Comment: Test Performed at: [employer] [address] [place], [place] ??[address] MICHEL LEO DO,MPH 10/11/2016 8:11 AM COMMERCIAL ACCOUNT EXECUTIVE 10/11/2016 8:12 AM COMMERCIAL ACCOUNT EXECUTIVE Yosvany Gonsalez MD LAB - CHEMISTRY VIVIANA ADAMS Performing Organization Address [facility] Co de Phone Number [facility] [address] [place] [address] * URIC ACID BLOOD (10/11/2016 8:11 AM COMMERCIAL ACCOUNT EXECUTIVE) Uric Acid 5.8 4.0 - 8.0 mg/dL [facility] Comment: Therapeutic target for gout patients: <6.0 mg/dL ?? Test Performed at: [facility] [address] [place], [place] ??[address] MICHEL LEO DO,MPH 10/11/2016 8:11 AM COMMERCIAL ACCOUNT EXECUTIVE 10/11/2016 8:12 AM COMMERCIAL ACCOUNT EXECUTIVE Yosvany Gonsalez MD LAB - CHEMISTRY VIVIANA ADAMS Performing Organization Address [facility] Co de Phone Number [facility] [address] [place] [address] * LIPID PROFILE (10/11/2016 8:11 AM COMMERCIAL ACCOUNT EXECUTIVE) Cholesterol 158 125 - 200 mg/dL [facility] Comment: Test Performed at: [employer] [facility] [address] [place], [place] ??[address] MICHEL LEO DO,MPH HDL Cholesterol 54 > OR = [...] than LDL cholesterol target. 10/11/2016 8:11 AM COMMERCIAL ACCOUNT EXECUTIVE 10/11/2016 8:12 AM COMMERCIAL ACCOUNT EXECUTIVE Yosvany Gonsalez MD LAB - CHEMISTRY VIVIANA ADAMS Performing Organization Address [facility] Co de Phone Number [facility] [address] [place] [address] documented in this encounter Visit Diagnoses Not on filedocumented in this encounter Care Teams Mortgage Manager Relationship Specialty Start Date End Date Yosvany Gonsalez MD [address] [place] [phone] PCP - General Internal Medicine 04/08/13 09/03/19 documented as of this encounter
--- OUTSIDE RECORDS SUMMARY | 2024-11-02 09:07 | XMS_ITS | Encounter Summary ---
Author Organization [facility] Address [address] [place] [address] Care Team Providers Care Correspondence Section Supervisor Name Role Phone Yosvany Gonsalez MD Primary Care Provider [phone] Reason for Visit * Reason Onset Date Comments MEDICATION REFILL 09/21/2015 Encounter Details Date Type Department Care Team (Late st Contact Info) Description 09/21/2015 Refill [facility] Medical [facility] - Family Medicine [address] [place] [phone] Yosvany Gonsalez MD [address] [place] [address] MEDICATION REFILL Social History Tobacco [...] PM CST To Dr Gonsalez for RF. OVEMENT ADVISOR documented in this encounter Plan of Treatment Not on file documented as of this encounter Visit Diagnoses Not on filedocumented in this encounter Care Teams Correspondence Section Supervisor Relationship Specialty Start Date End Date Yosvany Gonsalez MD [address] [place] [phone] PCP - General Internal Medicine 04/08/13 09/03/19 documented as of this encounter
--- OUTSIDE RECORDS SUMMARY | 2024-11-02 09:07 | XMS_ITS | Encounter Summary ---
Author Organization [facility] Address [address] [place] [address] Care Team Providers Care Mri Ct Tech Name Role Phone Yosvany Gonsalez MD Primary Care Provider [phone] Reason for Visit * Reason Onset Date Comments Question 08/26/2016 Encounter Details Date Type Department Care Team (Late st Contact Info) Description 08/26/2016 Telephone [facility] Medical [facility] - Family Medicine [address] [phone] Yosvany Gonsalez MD [address] [place] [address] [place] [address] Question Social History Tobacco Use [...] on filedocumented in this encounter Care Teams Mri Ct Tech Relationship Specialty Start Date End Date Yosvany Gonsalez MD [address] [place] [address] PCP - General Internal Medicine 04/08/13 09/03/19 documented as of this encounter
--- OUTSIDE RECORDS SUMMARY | 2024-11-02 09:07 | XMS_ITS | Encounter Summary ---
Author Organization [facility] Address [address] [place] [address] Care Team Providers Care Dog Breeder Name Role Phone Yosvany Gonsalez MD Primary Care Provider [phone] Reason for Visit * Reason Comments Cough Congestion Encounter Details Date Type Department Care Team (Late st Contact Info) Description 10/28/2016 9:45 AM CONTROL SYSTEMS TECHNICIAN Office Visit [facility] [address] [place] [phone] Provider1, [facility] Acute non-recurrent maxillary [...] Comments Blood Pressure 128/72 10/28/2016 9:46 AM CONTROL SYSTEMS TECHNICIAN Pulse 89 10/28/2016 9:46 AM CONTROL SYSTEMS TECHNICIAN Temperature 36.4 ??C (97.6 ??F) 10/28/2016 9:46 AM CS T Respiratory Rate 16 10/28/2016 9:46 AM CONTROL SYSTEMS TECHNICIAN Oxygen Saturation 98% 10/28/2016 9:46 AM CONTROL SYSTEMS TECHNICIAN Inhaled Oxygen Concentration - - Weight 78.9 kg (174 lb) 10/28/2016 9:46 AM CONTROL SYSTEMS TECHNICIAN Height 167.6 cm (5' 6 ) 10/28/2016 9:46 AM CONTROL SYSTEMS TECHNICIAN Body Mass Index 28.08 10/28/2016 9:46 AM CONTROL SYSTEMS TECHNICIAN documented in this encounter Patient Instructions * Patient Instructions* Praveena Knott APRN-CNP - 10/28/2016 9:56 AM CONTROL SYSTEMS TECHNICIAN Images from the original note were not [...] refuse treatment. The above information is an laboratory aide only. It is not intended as medical advice for individual conditions or treatments. Talk to your doctor, nurse or pharmacist before following any medical regimen to see if it is safe and effective for you. ?? 2016 [employer]. Information is for End User's use only and may not be sold, redistributed or otherwise used for commercial purposes. All illustrations and images included in CareNotes?? are the copyrighted property of [employer]. or [employer]. Sinusitis WHAT YOU NEED TO KNOW: What [...] refuse treatment. The above information is an laboratory aide only. It is not intended as medical advice for individual conditions or treatments. Talk to your doctor, nurse or pharmacist before following any medical regimen to see if it is safe and effective for you. ?? 2016 [employer]. Information is for End User's use only and may not be sold, redistributed or otherwise used for commercial purposes. All illustrations and images included in CareNotes?? are the copyrighted property of [employer], [employer]. or [employer]. ROL SYSTEMS TECHNICIAN documented in this encounter Progress Notes * Praveena Knott APRN-CNP - 10/28/2016 9:54 AM CST 10/28/2016 PCP: Yosvany Gonsalez MD CC: Chief Complaint Patient presents with ??? Cough ??? Congestion . HPI: Natan Patel is a 61 y.o. male presents today at the [facility] with complaint of chest congestion and nasal [...] 81 mg by mouth once daily ??? [place]-3 Fatty Acids (FISH OIL) 1000 MG capsule [...] propionate (FLONASE) 50 MCG/ACT nasal spray Sig: Levasy 2 Sprays into each nostril once daily [...] : No Follow-up on file. TIFFANY Cristina ROL SYSTEMS TECHNICIAN documented in this encounter Plan of Treatment Not on file documented as of this encounter Visit Diagnoses Diagnosis Acute non-recurrent maxillary sinusitis- Primary Acute bronchitis, unspecified organism documented in this encounter Administered Medications Administered Medications Medication Order MAR Action Action Date Dose Rate Site Methylprednlsolone 80mg Intramuscular Given 10/28/2016 80 mg Right Gluteal documented in this encounter Care Teams Dog Breeder Relationship Specialty Start Date End Date Yosvany Gonsalez MD [address] [phone] PCP - General Internal Medicine 04/08/13 09/03/19 documented as of this encounter
--- OUTSIDE RECORDS SUMMARY | 2024-11-02 09:07 | XMS_ITS | Encounter Summary ---
Author Organization [facility] Address [address] [place] [address] Care Team Providers Care Molding Cutter Name Role Phone Yosvany Gonsalez MD Primary Care Provider [phone] Reason for Visit * Auth/Cert - Closed Specialty Diagnoses / Procedures Referred By Shelby jama Referred To Contact Diagnoses Encounter for screening colonoscopy Referral ID Status Reason Start Date Expiration Date Visits Re quested Visits Authorized [id number] Closed 1 1 Encounter Details Date Type Department Care Team (Late Contact Info) Description 02/04/2015 8:24 AM CDT - 02/04/2015 12:09 PM CDT Hospital Encounter [facility] 1 [place] [address] [place] [address] [place] [address] [id number] Endoscopy Discharge Disposition: Home or Self Care [...] fluticasone propionate (FLONASE) 50 MCG/ACT nasal spray [place] 2 Sprays into each nostril once daily. [...] MD - 02/04/2015 9:02 AM CDT [facility] [address] [phone] Note Review MANDIE PATEL : 1955, Sex: [...] fluticasone propionate (FLONASE) 50 MCG/ACT nasal spray [place] 2 Sprays into each nostril once daily. [...] No Follow-up on file. Ginny Mckeon MD Compound Coating Machine Offbearer documented in this encounter Nursing Notes * Jack Blackmon, RN - 01/29/2015 2:49 PM CDT Instructed patient to have nothing to drink after midnight the night before procedure.Instructed patient to come to the patient entrance the morning of surgery at their scheduled arrival time.Instructed patient must have coach driver to take them home after procedure [...] of Service: 02/04/2015 Surgeon: Dr. Jonathan Mckeon De Icer Installer: None Anasthesia: Per the Anasthesia team Preop [...] Case Report Surgical Pathology Report ? Case: [id number] ? Authorizing Provider: ??Ginny Mckeon MD ? Collected: ? 02/04/2015 10:30 AM ? Ordering Location: ? [facility] ?Received: ?02/04/2015 11:17 AM ? [...] [facility] Testing Performed By Performed by [facility] [place] [place]. [address] 02/05/2015 10:13 AM CDT [facility] Pathology/Cytolo gy RECTAL POLYP / Unknown 02/04/2015 10:30 AM CDT 02/04/2015 11:17 AM CDT Ginny Mckeon MD LAB - PATHOLOGY/CYTO LOGY ORDERABLES [facility] [address] documented in this encounter Visit Diagnoses [...] (Anesthesia Volume Adjustment - Provider: Sergey Robledo APRN-CONTROL SYSTEMS ENG) documented in this encounter Care Teams Molding Cutter Relationship Specialty Start Date End Date Yosvany Gonsalez MD [address] [phone] PCP - General Internal Medicine 04/08/13 09/03/19 documented as of this encounter
--- OUTSIDE RECORDS SUMMARY | 2024-11-02 09:07 | XMS_ITS | Encounter Summary ---
Author Organization [facility] Address [address] [place] [address] Care Team Providers Care Medicare Interviewer Name Role Phone Yosvany Gonsalez MD Primary Care Provider [phone] Reason for Visit * Other (Routine) - Closed Specialty Diagnoses / Procedures Referred By Shelby jama Referred To Contact Cardiology [facility] 1 [place] [address] [facility] [address] [place] [phone] Referral ID Status Reason Start Date Expiration Date Visits Re quested Visits Authorized [id number] Closed 11/16/2015 05/14/2016 1 1 Encounter Details Date Type Department Care Team (Late st Contact Info) Description 11/16/2015 7:21 AM RETAIL SALES VITAMIN CONSULTANT - 11/16/2015 11:59 PM [facility] Hospital Encounter [facility] - Cardiology 1 [place] [address] Yosvany Gonsalez MD [address] [place] [address] Armani Trinidad T, DO 2 [facility] [address] [place] [address] Discharge Disposition: Home or Self [...] Comments Blood Pressure 133/84 11/16/2015 7:43 AM RETAIL SALES VITAMIN CONSULTANT Pulse 71 11/16/2015 7:43 AM RETAIL SALES VITAMIN CONSULTANT Temperature - - Respiratory Rate 20 11/16/2015 7:43 AM RETAIL SALES VITAMIN CONSULTANT Oxygen Saturation - - Inhaled Oxygen Concentration - - Weight 77.6 kg (171 lb) 11/16/2015 7:43 AM RETAIL SALES VITAMIN CONSULTANT Height 170.2 cm (5' 7 ) 11/16/2015 7:43 AM RETAIL SALES VITAMIN CONSULTANT Body Mass Index 26.78 11/16/2015 7:43 AM RETAIL SALES VITAMIN CONSULTANT documented in this encounter Medications at Time of Discharge Medication Sig Dispensed Refills Start Date End Date aspirin (ASPIRIN) 81 MG chew tablet Take 81 mg by mouth once daily Cholecalciferol (VITAMIN D) 2000 UNITS CAPS capsule Take 2,000 Units by mouth once daily [place]-3 Fatty Acids (FISH OIL) 1000 MG capsule [...] from stress lab per ambulation Transported to [facility] LOC: wnl Condition on discharge stable Soraya Meek RN [place] SALES VITAMIN CONSULTANT * Soraya Meek RN - 11/16/2015 8:48 AM CST Patient exercised 10:30 minutes on treadmill, denies chest pain, shortness of breath. Large glass of water given. [place] SALES VITAMIN CONSULTANT Soraya Herring RN - 11/16/2015 8:[address] Shashank Trinidad here speaking with patient stress testing to begin. [place] SALES VITAMIN CONSULTANT * Soraya Meek RN - 11/16/2015 7:24 AM CST Procedure note: Patient arrived in the stress lab. Alert and oriented x3. Skin warm and dry. Procedure was explained and all questions answered. A signed consent was obtained with no concerns voiced. [place] SALES VITAMIN CONSULTANT documented in this encounter Plan of Treatment Not on file documented as of this encounter Procedures Procedure Name Priority Date/Time Associated Diagnosis Comments ECHOCARDIOGRAM STRESS Routine 11/16/2015 5:06 PM RETAIL SALES VITAMIN CONSULTANT Atypical chest pain STRESS TEST TREADMILL (NO IMAGING) Routine 11/16/2015 7:46 AM RETAIL SALES VITAMIN CONSULTANT Atypical chest pain documented in this encounter Results * ECHOCARDIOGRAM STRESS Walking Stress ECHO (11/16/2015 5:06 PM RETAIL SALES VITAMIN CONSULTANT) Narrative [facility] - 11/16/2015 5:06 PM RETAIL SALES VITAMIN CONSULTANT [facility] [address] [place] [address] Exercise Stress Echocardiography Patient: MANDIE PATEL MR #: [id number] : 1955 Age: 60 years Gender: Male Study date: 16-Nov-2015 Status: Outpatient Room: - Ordering Physician: ??Armani Trinidad DO, MSEE Referring Physician: ??Yosvany Gonsalez MD Member Certification Manager: ??Armani Trinidad DO, MSEE Member Certification Manager: ??[facility] Heart and Mail Agent: ??Obdulia Bowden RDCS Clinical question: Atypical Chest [...] 17:09:40 Procedure Note Unknown, Provider - 11/16/2015 [facility] [address] [place] [address] Exercise Stress Echocardiography Patient: MANDIE PATEL MR #: [id number] : 1955 Age: 60 years Gender: Male Study date: 16-Nov-2015 Status: Outpatient Room: - Ordering Physician: Armani Trinidad DO, MSEE Referring Physician: Yosvany Gonsalez MD Member Certification Manager: Armani Trinidad DO, MSEE Member Certification Manager: [facility] Heart and Mail Agent: Obdulia Bowden RDCS Clinical question: Atypical Chest [...] * ECG STRESS TRACING (11/16/2015 7:46 AM RETAIL SALES VITAMIN CONSULTANT) Stress Test Summary For full formatted report, [...] achieved 14 METS Confirmed by Armani Trinidad ([id number]) on 11/16/2015 9:12:22 AM Attending Physician: KWADWO ??DOARMANI Referred By: OLI ?Overread By: Armani Trinidad [facility] 11/16/2015 7:46 AM RETAIL SALES VITAMIN CONSULTANT 11/16/2015 9:12 AM RETAIL SALES VITAMIN CONSULTANT Armani Trinidad DO CARDIAC SERVICES ORD ERABLES [...] before using. $ Given 11/16/2015 8:21 AM RETAIL SALES VITAMIN CONSULTANT 1.5 mL documented in this encounter Care Teams Medicare Interviewer Relationship Specialty Start Date End Date Yosvany Gonsalez MD [address] [place] [address] PCP - General Internal Medicine 04/08/13 09/03/19 documented as of this encounter
--- OUTSIDE RECORDS SUMMARY | 2024-11-02 09:07 | XMS_ITS | Encounter Summary ---
Author Organization [facility] Address [address] [place] [address] Care Team Providers Care Upsetter Setter Up Name Role Phone Yosvany Gonsalez MD Primary Care Provider [phone] Reason for Visit * Reason Comments Comprehensive Chronic Disease Evaluation Medication Check Sleep [facility] Encounter Details Date Type Department Care Team (Late st Contact Info) Description 03/19/2015 4:00 PM CDT Office Visit [facility] Medical [facility] - Family Medicine [address] [place] [phone] Yosvany Gonsalez MD [address] [place] [address] RANDY (obstructive sleep apnea) (Primary [...] PATIENT'S ALLERGY, PM,FSH REVIEWED AND EXTRAPOLATED FROM [facility] No Known Allergies Past Medical History Diagnosis [...] Case Report Value: Surgical Pathology Report Case: [id number] Authorizing Provider: Ginny Mckeon MD Collected: 02/04/2015 10:30 AM Ordering Location: [facility] Received: 02/04/2015 11:17 AM Pathologist: [...] diagnosis. Testing Performed By Value: Performed by [facility] [place]. [address] ASSESSMENT: ICD-9-CM 1. RANDY (obstructive sleep apnea) [...] medications documented in this encounter Care Teams Upsetter Setter Up Relationship Specialty Start Date End Date Yosvany Gonsalez MD [address] [place] [address] [place] [phone] PCP - General Internal Medicine 04/08/13 09/03/19 documented as of this encounter
--- OUTSIDE RECORDS SUMMARY | 2024-11-02 09:07 | XMS_ITS | Encounter Summary ---
Author Organization [facility] Address [address] [place] [address] Care Team Providers Care Drapery Installer Name Role Phone Yosvany Gonsalez MD Primary Care Provider Reason for Visit * Reason Onset Date Comments MEDICATION REFILL 11/19/2015 Encounter Details Date Type Department Care Team (Late st Contact Info) Description 11/19/2015 Refill [facility] Medical [facility] - Family Medicine [address] [place] [phone] Yosvany Gonsalez MD [address] [place] [address] MEDICATION REFILL Social History Tobacco [...] 11/19/2015 4:32 PM CST Rf per protocol. CAR ATTENDANT documented in this encounter Plan of Treatment Not on file documented as of this encounter Visit Diagnoses Not on filedocumented in this encounter Care Teams Drapery Installer Relationship Specialty Start Date End Date Yosvany Gonsalez MD [address] [place] [phone] PCP - General Internal Medicine 04/08/13 09/03/19 documented as of this encounter
--- OUTSIDE RECORDS SUMMARY | 2024-11-02 09:07 | XMS_ITS | Encounter Summary ---
Author Organization [facility] Address [address] [place] [address] Care Team Providers Care Terrazzo Finisher Name Role Phone Yosvany Gonsalez MD Primary Care Provider [phone] Encounter Details Date Type Department Care Team (Late st Contact Info) Description 10/02/2015 Orders Only [facility] - Family Medicine [address] [phone] Yosvany Gonsalez MD [address] [place] [phone] Social History Tobacco Use Types Packs/Day Years [...] Comments URIC ACID BLOOD 10/02/2015 7:49 AM CLOTH COVERED HELMET PULLER HEMOGLOBIN A1C 10/02/2015 7:49 AM CLOTH COVERED HELMET PULLER CBC W AUTO DIFFERENTIAL 10/02/2015 7:49 AM CLOTH COVERED HELMET PULLER COMPREHENSIVE METABOLIC PANEL 10/02/2015 7:49 AM CLOTH COVERED HELMET PULLER PROSTATE SPECIFIC ANTIGEN SCREEN 10/02/2015 7:49 AM CLOTH COVERED HELMET PULLER TSH 10/02/2015 7:49 AM CLOTH COVERED HELMET PULLER LIPID PROFILE 10/02/2015 7:49 AM CLOTH COVERED HELMET PULLER documented in this encounter Results * (ABNORMAL) HEMOGLOBIN A1C (10/02/2015 7:49 AM CLOTH COVERED HELMET PULLER) Hemoglobin A1c 5.9(H) <5.7 % of total [...] of diabetes for children. Test Performed at: [facility] [place], [place] ??[address] MICHEL LEO DO,MPH 10/02/2015 7:49 AM CLOTH COVERED HELMET PULLER 10/02/2015 7:50 AM CLOTH COVERED HELMET PULLER Yosvany Gonsalez MD LAB - CHEMISTRY VIVIANA ADAMS [facility] Organization Address City/State/[facility] Co de Phone Number [facility] [address] [place] [address] * PROSTATE SPECIFIC ANTIGEN SCREEN (10/02/2015 7:49 AM CLOTH COVERED HELMET PULLER) PSA 0.6 < OR = 4.0 ng/mL [facility] Comment: This test was performed using the Siemens chemiluminescent method. Values obtained from different assay methods cannot be used interchangeably. PSA levels, regardless of value, should not be interpreted as absolute evidence of the presence or absence of disease. Test Performed at: [email or web address] [id number] [place], [place] ??[address] MICHEL LEO DO,MPH 10/02/2015 7:49 AM CLOTH COVERED HELMET PULLER 10/02/2015 7:50 AM CLOTH COVERED HELMET PULLER Yosvany Gonsalez MD LAB - CHEMISTRY VIVIANA ADAMS Performing Organization Address [facility] Co de Phone Number [facility] [address] [place] [address] * TSH (10/02/2015 7:49 AM CLOTH COVERED HELMET PULLER) [facility] TSH 1.78 0.40 - 4.50 mIU/L [facility] Comment: Test Performed at: [facility] [place], [place] ??[phone] MICHEL LEO DO,MPH 10/02/2015 7:49 AM CLOTH COVERED HELMET PULLER 10/02/2015 7:50 AM CLOTH COVERED HELMET PULLER Yosvany Gonsalez MD LAB - CHEMISTRY VIVIANA ADAMS Performing Organization Address [facility] de Phone Number [facility] [address] [place] [address] * CBC W AUTO DIFFERENTIAL (10/02/2015 7:49 AM CLOTH COVERED HELMET PULLER) [facility] White Blood Cell Count 6.4 3.8 - [...] 0.5 % [facility] Comment: Test Performed at: [facility] [place] ??[address] MICHEL LEO DO,MPH 10/02/2015 7:49 AM CLOTH COVERED HELMET PULLER 10/02/2015 7:50 AM CLOTH COVERED HELMET PULLER Yosvany Gonsalez MD LAB - HEMATOLOGY ORD ERABLES [facility] [address] [place] [address] * (ABNORMAL) COMPREHENSIVE METABOLIC PANEL (10/02/2015 7:49 AM CLOTH COVERED HELMET PULLER) Glucose 96 65 - 99 mg/dL [facility] Comment: ? Fasting reference interval BUN 12 7 - 25 mg/dL [facility] Creatinine 0.75 0.70 - 1.25 mg/dL [facility] Comment: For patients >49 years of age, the reference limit for Creatinine is approximately 13% higher for people identified as -Israeli. eGFR by MDRD 99 > OR = [...] 46 U/L [facility] Comment: Test Performed at: [email or web address] [address] [place], [place] ??[phone] MICHEL LEO DO,MPH 10/02/2015 7:49 AM CLOTH COVERED HELMET PULLER 10/02/2015 7:50 AM CLOTH COVERED HELMET PULLER Yosvany Gonsalez MD LAB - CHEMISTRY VIVIANA ADAMS Performing Organization Address City/[facility] Co de Phone Number [facility] [address] [place] [address] * URIC ACID BLOOD (10/02/2015 7:49 AM CLOTH COVERED HELMET PULLER) Uric Acid 6.2 4.0 - 8.0 mg/dL [facility] Comment: Therapeutic target for gout patients: <6.0 mg/dL ?? Test Performed at: [facility] [address] [place], [place] ??[address] MICHEL LEO DO,MPH 10/02/2015 7:49 AM CLOTH COVERED HELMET PULLER 10/02/2015 7:50 AM CLOTH COVERED HELMET PULLER Yosvany Gonsalez MD LAB - CHEMISTRY VIVIANA ADAMS Performing Organization Address [facility] Co de Phone Number [facility] [address] [place] [address] * LIPID PROFILE (10/02/2015 7:49 AM CLOTH COVERED HELMET PULLER) Cholesterol 177 125 - 200 mg/dL [facility] Comment: Test Performed at: [email or web address] [address] [place], [place] ??[phone] MICHEL LEO DO,MPH HDL Cholesterol 50 > [...] than LDL cholesterol target. 10/02/2015 7:49 AM CLOTH COVERED HELMET PULLER 10/02/2015 7:50 AM CLOTH COVERED HELMET PULLER Yosvany Gonsalez MD LAB - CHEMISTRY VIVIANA ADAMS Performing Organization Address [facility] Co de Phone Number [facility] [address] [place] [address] documented in this encounter Visit Diagnoses Not on filedocumented in this encounter Care Teams Terrazzo Finisher Relationship Specialty Start Date End Date Yosvany Gonsalez MD [address] [place] [phone] PCP - General Internal Medicine 04/08/13 09/03/19 documented as of this encounter
--- OUTSIDE RECORDS SUMMARY | 2024-11-02 09:07 | XMS_ITS | Encounter Summary ---
Author Organization [facility] Address [address] [facility] [place] [address] Care Team Providers Care Secondary Special Education Teacher Name Role Phone Yosvany Gonsalez MD Primary Care Provider [phone] Reason for Visit * Reason Comments Comprehensive Chronic Disease Evaluation follow up and his cough. Voices no pain or distress. Encounter Details Date Type Department Care Team (Latest Contact Info) Description 09/09/2016 11:45 AM CDT Office Visit [facility] Medical [facility] - Family Medicine [address] [phone] Yosvany Gonsalez MD [address] [place] [address] Acute tracheobronchitis (Primary Dx) Social [...] 81 mg by mouth once daily ??? [place]-3 Fatty Acids (FISH OIL) 1000 MG capsule [...] of education: 12 Occupational History ??? [employer] Social History Main Topics ??? Smoking status: [...] bronchitis documented in this encounter Care Teams Secondary Special Education Teacher Relationship Specialty Start Date End Date Yosvany Gonsalez MD [address] [place] [phone] PCP - General Internal Medicine 04/08/13 09/03/19 documented as of this encounter
--- OUTSIDE RECORDS SUMMARY | 2024-11-02 09:07 | XMS_ITS | Encounter Summary ---
Author Organization [facility] Address [address] [place] [address] Care Team Providers Care Ordinary Seaman Name Role Phone Yosvany Gonsalez MD Primary Care Provider [phone] Reason for Visit * Reason Onset Date Comments MEDICATION REFILL 12/17/2015 Encounter Details Date Type Department Care Team (Late st Contact Info) Description 12/17/2015 Refill [facility] - Family Medicine [address] [place] [phone] Yosvany Gonsalez MD [address] [place] [phone] MEDICATION REFILL Social History Tobacco Use Types [...] send a script for Pantoprazole to the [facility].I first read the note and told her it was undergoing a prior authorization then she said he had gotten the approval in the mail and needed the script but hadn't heard from us.I sent a years worth oif the drug to [facility] at the wifes request. T PACKER documented in this encounter Plan of Treatment Not on file documented as of this encounter Visit Diagnoses Not on filedocumented in this encounter Care Teams Ordinary Seaman Relationship Specialty Start Date End Date Yosvany Gonsalez MD [address] [phone] PCP - General Internal Medicine 04/08/13 09/03/19 documented as of this encounter
--- OUTSIDE RECORDS SUMMARY | 2024-11-02 09:07 | XMS_ITS | Encounter Summary ---
Author Organization [facility] Address [address] [place] [address] Care Team Providers Care Saw Tailer Name Role Phone Yosvany Gonsalez MD Primary Care Provider [phone] Reason for Visit * Reason Onset Date Comments Medication Prior Auth Request 12/07/2015 Encounter Details Date Type Department Care Team (Late st Contact Info) Description 12/07/2015 Telephone [facility] Medical [facility] - Family Medicine [address] [phone] Yosvany Gonsalez MD [address] [place] [address] Medication Prior Auth Request Social [...] - [facility], sent to plan via Plaid TENANCE MANAGER documented in this encounter Plan of Treatment Not on file documented as of this encounter Visit Diagnoses Not on filedocumented in this encounter Care Teams Saw Tailer Relationship Specialty Start Date End Date Yosvany Gonsalez MD [address] [phone] PCP - General Internal Medicine 04/08/13 09/03/19 documented as of this encounter
--- OUTSIDE RECORDS SUMMARY | 2024-11-02 09:07 | XMS_ITS | Encounter Summary ---
Author Organization [facility] Address [address] [place] [address] Care Team Providers Care Internal Combustion Engine Subassembler Name Role Phone Yosvany Gonsalez MD Primary Care Provider [phone] Reason for Visit * Reason Comments Comprehensive Chronic Disease Evaluation Medication Check Chest Pain stress test results atypical chest pain Encounter Details Date Type Department Care Team (Late st Contact Info) Description 12/07/2015 2:00 PM GEOTHERMAL PLANT MANAGER Office Visit [facility] Medical [facility] - Family Medicine [address] [place] [phone] Yosvany Gonsalez MD [address] [place] [address] Chronic gastritis (Primary Dx) Social [...] Comments Blood Pressure 130/72 12/07/2015 2:12 PM GEOTHERMAL PLANT MANAGER Pulse 92 12/07/2015 2:12 PM GEOTHERMAL PLANT MANAGER Temperature 36.6 ??C (97.9 ??F) 12/07/2015 2:12 PM CS T Respiratory Rate 16 12/07/2015 2:12 PM GEOTHERMAL PLANT MANAGER Oxygen Saturation 97% 12/07/2015 2:12 PM GEOTHERMAL PLANT MANAGER Inhaled Oxygen Concentration - - Weight 79.1 kg (174 lb 6.4 oz) 12/07/2015 2:12 P M GEOTHERMAL PLANT MANAGER Height 170.2 cm (5' 7 ) 12/07/2015 2:12 PM GEOTHERMAL PLANT MANAGER Body Mass Index 27.31 12/07/2015 2:12 PM GEOTHERMAL PLANT MANAGER documented in this encounter Progress Notes * [...] 81 mg by mouth once daily ??? [place]-3 Fatty Acids (FISH OIL) 1000 MG capsule [...] achieved 14 METS Confirmed by Armani Burkett ([id number]) on 11/16/2015 9:12:22 AM Attending Physician: ARMANI [...] back in 3 months. 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
--- OUTSIDE RECORDS SUMMARY | 2024-11-02 09:07 | XMS_ITS | Encounter Summary ---
Author Organization [facility] Address [address] [facility] [place] [address] Care Team Providers Care Senior Facilities Manager Name Role Phone Yosvany Gonsalez MD Primary Care Provider [phone] Reason for Visit * Reason Comments Comprehensive Chronic Disease Evaluation Medication Check Fatigue look over RANDY result s and machine discussion Encounter Details Date Type Department Care Team (Latest Contact Info) Description 06/19/2015 4:15 PM CDT Office Visit [facility] - Family Medicine [address] [place] [phone] Yosvany Gonsalez MD [address] [place] [address] Hyperlipidemia (Primary Dx); Nicotine dependence; [...] PATIENT'S ALLERGY, PM,FSH REVIEWED AND EXTRAPOLATED FROM Grows Up No Known Allergies Past Medical History Diagnosis [...] exam Routine general medical examination at a the [facility] care facility RANDY (obstructive sleep apnea) Obstructive sleep apnea (adult) (pediatric) documented in this encounter Care Teams Senior Facilities Manager Relationship Specialty Start Date End Date Yosvany Gonsalze MD [address] [place] [phone] PCP - General Internal Medicine 04/08/13 09/03/19 documented as of this encounter
--- OUTSIDE RECORDS SUMMARY | 2024-11-02 09:07 | XMS_ITS | Encounter Summary ---
Author Organization [facility] Address [address] [place] [address] Care Team Providers Care Car Driver Name Role Phone Yosvany Gonsalez MD Primary Care Provider [phone] Reason for Visit * Reason Comments Complete Physical Exam annual Encounter Details Date Type Department Care Team (Latest Contact Info) Description 10/19/2016 3:30 PM LABEL FOLDER Office Visit [facility] - Family Medicine [address], [facility] [place] [address] Yosvany Gonsalez MD [address] [place] [address] [place] [address] RANDY on CPAP (Primary Dx); [...] Comments Blood Pressure 130/66 10/19/2016 4:19 PM LABEL FOLDER Pulse 85 10/19/2016 4:19 PM LABEL FOLDER Temperature 36.6 ??C (97.9 ??F) 10/19/2016 4:19 PM CS T Respiratory Rate 16 10/19/2016 4:19 PM LABEL FOLDER Oxygen Saturation 99% 10/19/2016 4:19 PM LABEL FOLDER Inhaled Oxygen Concentration - - Weight 79 kg (174 lb 3.2 oz) 10/19/2016 4:19 PM LABEL FOLDER Height 170.2 cm (5' 7 ) 10/19/2016 4:19 PM LABEL FOLDER Body Mass Index 27.28 10/19/2016 4:19 PM LABEL FOLDER documented in this encounter Progress Notes * [...] 81 mg by mouth once daily ??? [place]-3 Fatty Acids (FISH OIL) 1000 MG capsule [...] of education: 12 Occupational History ??? [employer] Social History Main Topics ??? [...] cells/uL Gran 57.5 % Lymph 32.8 % [place] 7.8 % Eos 1.4 % Baso 0.5 [...] ON PATIENT'S HEALTH DISCUSSED. Yosvany Gonsalez MD L FOLDER documented in this encounter Plan of Treatment [...] leg documented in this encounter Care Teams Car Driver Relationship Specialty Start Date End Date Yosvany Gonsalez MD [address] [phone] PCP - General Internal Medicine 04/08/13 09/03/19 documented as of this encounter
--- OUTSIDE RECORDS SUMMARY | 2024-11-02 09:07 | XMS_ITS | Encounter Summary ---
Author Organization [facility] Address [address] [place] [address] Care Team Providers Care Umbrella Supervisor Name Role Phone Yosvany Gonsalez MD Primary Care Provider [phone] Reason for Referral * Cardiac - Closed Specialty Diagnoses / Procedures Referred By Shelby jama Referred To Contact Cardiology Diagnoses RANDY on CPAP Atypical chest pain Procedures ECHOCARDIOGRAM STRESS CPT 01655 Yosvany Gonsalez MD [address] [phone] Referral ID Status Reason Start Date Expiration Date Visits Re quested Visits Authorized [id number] Closed 10/16/2015 04/13/2016 1 1 ENTRY TEACHER Reason for Visit * Reason Comments Complete Physical Exam annual exam Encounter Details Date Type Department Care Team (Late st Contact Info) Description 10/16/2015 4:15 PM CARPENTRY TEACHER Office Visit [facility] Medical [facility] - Family Medicine [address] [phone] Yosvany Gonsalez MD [address] [place] [address] Annual physical exam (Primary Dx); [...] Comments Blood Pressure 142/88 10/16/2015 4:16 PM CARPENTRY TEACHER Pulse 82 10/16/2015 4:16 PM CARPENTRY TEACHER Temperature 36.6 ??C (97.8 ??F) 10/16/2015 4:16 PM CS T Respiratory Rate 16 10/16/2015 4:16 PM CARPENTRY TEACHER Oxygen Saturation 98% 10/16/2015 4:16 PM CARPENTRY TEACHER Inhaled Oxygen Concentration - - Weight 77.6 kg (171 lb) 10/16/2015 4:16 PM CARPENTRY TEACHER Height 170.2 cm (5' 7 ) 10/16/2015 4:16 PM CARPENTRY TEACHER Body Mass Index 26.78 10/16/2015 4:16 PM CARPENTRY TEACHER documented in this encounter Progress Notes * [...] with his dad having had his first [place] at age 29. Continued use of tobacco [...] cells/uL Gran 48.2 % Lymph 41.1 % [place] 9.1 % Eos 1.1 % Baso 0.5 [...] and quit smoking completely. Yosvany Gonsalez MD ENTRY TEACHER documented in this encounter Plan of Treatment [...] pain documented in this encounter Care Teams Umbrella Supervisor Relationship Specialty Start Date End Date Yosvany Gonsalez MD [address] [place] [phone] PCP - General Internal Medicine 04/08/13 09/03/19 documented as of this encounter
--- OUTSIDE RECORDS SUMMARY | 2024-11-02 09:07 | XMS_ITS | Encounter Summary ---
Author Organization [facility] Address [address] [place] [address] Care Team Providers Care Nut Sorter Name Role Phone Yosvany Gonsalez MD Primary Care Provider [phone] Reason for Visit * Reason Onset Date Comments Patient Education 02/03/2015 Encounter Details Date Type Department Care Team (Late st Contact Info) Description 02/03/2015 Telephone [facility] PATIENT CALL BACK 1 [place] [address] Dnadre Cameron, ISOLATION WASHER Patient Education Social History Tobacco Use Types [...] on filedocumented in this encounter Care Teams Nut Sorter Relationship Specialty Start Date End Date Yosvany Gonsalez MD [address] [place] [phone] PCP - General Internal Medicine 04/08/13 09/03/19 documented as of this encounter
--- OUTSIDE RECORDS SUMMARY | 2024-11-02 09:07 | XMS_ITS | Encounter Summary ---
Author Organization [facility] Address [address] [facility] [place] [address] Care Team Providers Care Caramel Candy Maker Helper Name Role Phone Yosvany Gonsalez MD Primary Care Provider [phone] Reason for Visit * Reason Comments Comprehensive Chronic Disease Evaluation pre-op clearance for knee surgery. Voices no other pain or concerns. Pain Knee Medication Check Medical Clearance Encounter Details Date Type Department Care Team (Latest Contact Info) Description 08/29/2016 11:00 AM CDT Office Visit [facility] Medical [facility] - Family Medicine [address] [place] [address], [place] [address] Yosvany Gonsalez MD [address] [place] [address] Pre-operative clearance (Primary Dx); Mixed [...] 81 mg by mouth once daily ??? [place]-3 Fatty Acids (FISH OIL) 1000 MG capsule [...] of education: 12 Occupational History ??? [employer] Social History Main Topics ??? Smoking status: [...] leg documented in this encounter Care Teams Caramel Candy Maker Helper Relationship Specialty Start Date End Date Yosvany Gonsalez MD [address] [phone] PCP - General Internal Medicine 04/08/13 09/03/19 documented as of this encounter
--- OUTSIDE RECORDS SUMMARY | 2024-11-02 09:07 | XMS_ITS | Encounter Summary ---
Author Organization [facility] Address [address] [place] [address] Care Team Providers Care Data Integration Developer Name Role Phone Yosvany Gonsalez MD Primary Care Provider [phone] Reason for Visit * Reason Comments Refill Request Encounter Details Date Type Department Care Team (Late st Contact Info) Description 11/02/2016 Refill [facility] Medical [facility] - Family Medicine [address] [place] [phone] Yosvany Gonsalez MD [address] [place] [address] Refill Request Social History Tobacco [...] PM CST To Dr Gonsalez for RF. AND TAPE MACHINE TENDER documented in this encounter Plan of Treatment Not on file documented as of this encounter Visit Diagnoses Not on filedocumented in this encounter Care Teams Data Integration Developer Relationship Specialty Start Date End Date Yosvany Gonsalez MD [address] [place] [phone] PCP - General Internal Medicine 04/08/13 09/03/19 documented as of this encounter
--- OUTSIDE RECORDS SUMMARY | 2024-11-02 09:07 | XMS_ITS | Encounter Summary ---
Author Organization [facility] Address [address] [place] [address] Care Team Providers Care Cloth Sander Name Role Phone Yosvany Gonsalez MD Primary Care Provider [phone] Reason for Visit * Auth/Cert - Closed Specialty Diagnoses / Procedures Referred By Shelby jama Referred To Contact Diagnoses Encounter for screening colonoscopy Referral ID Status Reason Start Date Expiration Date Visits Re quested Visits Authorized [id number] Closed 1 1 Encounter Details Date Type Department Care Team (Late st Contact Info) Description 02/04/2015 10:09 AM CDT Anesthesia Event [facility] - Endoscopy 1 [place] [address] Richy Segovia MD 2 [place] [address] Sergey Robledo, MEAL COOK-ROAD SUPERVISOR [address] [place] [address] Anesthesia Record Procedure Summary Procedure Name Responsible [...] fluticasone propionate (FLONASE) 50 MCG/ACT nasal spray [place] 2 Sprays into each nostril once daily. [...] fluticasone propionate (FLONASE) 50 MCG/ACT nasal spray [place] 2 Sprays into each nostril once daily. [...] Plan accepted yes Discussed anesthesia plan with: ROAD SUPERVISOR. documented in this encounter Plan of Treatment [...] CDT documented in this encounter Care Teams Cloth Sander Relationship Specialty Start Date End Date Yosvany Gonsalez MD [address] [place] [phone] PCP - General Internal Medicine 04/08/13 09/03/19 documented as of this encounter
--- OUTSIDE RECORDS SUMMARY | 2024-11-02 09:07 | XMS_ITS | Encounter Summary ---
Author Organization [facility] Address [address] [place] [address] Care Team Providers Care Pilot Plant Supervisor Name Role Phone Yosvany Gonsalez MD Primary Care Provider [phone] Reason for Visit * Reason Comments Follow-up 02/04=colonoscopy Encounter Details Date Type Department Care Team (Late st Contact Info) Description 02/11/2015 2:15 PM CDT Office Visit [facility] Medical [facility] - GI [address] [facility], [address] [place] [address] Ginny Mckeon MD [address] [place] [address] Colorectal polyps (Primary Dx); Annual [...] fluticasone propionate (FLONASE) 50 MCG/ACT nasal spray [place] 2 Sprays into each nostril once daily. [...] in the care of your patient. Ginny Mckeon MD Velvet Steamer documented in this encounter Plan of Treatment Not on file documented as of this encounter Visit Diagnoses Diagnosis Colorectal polyps- Primary Benign neoplasm of colon Annual physical exam Routine general medical examination at a health care facility documented in this encounter Care Teams Pilot Plant Supervisor Relationship Specialty Start Date End Date Yosvany Gonsalez MD [address] [phone] PCP - General Internal Medicine 04/08/13 09/03/19 documented as of this encounter
--- OUTSIDE RECORDS SUMMARY | 2024-11-02 09:07 | XMS_ITS | Encounter Summary ---
Author Organization [facility] Address [address] [place] [address] Care Team Providers Care Special Services Supervisor Name Role Phone Yosvany Gonsalez MD Primary Care Provider [phone] Reason for Visit * Reason Comments Comprehensive Chronic Disease Evaluation Medication Check Gastritis medication efficacy but still having issues Encounter Details Date Type Department Care Team (Late st Contact Info) Description 03/11/2016 4:15 PM CDT Office Visit [facility] - Family Medicine [address] [place] [phone] Yosvany Gonsalez MD [address] [place] [address] RANDY on CPAP (Primary Dx); [...] 81 mg by mouth once daily ??? [place]-3 Fatty Acids (FISH OIL) 1000 MG capsule [...] PATIENT'S ALLERGY, PM,FSH REVIEWED AND EXTRAPOLATED FROM [facility] No Known Allergies Past Medical History Diagnosis [...] hemorrhage documented in this encounter Care Teams Special Services Supervisor Relationship Specialty Start Date End Date Yosvany Gonsalez MD [address] [place] [phone] PCP - General Internal Medicine 04/08/13 09/03/19 documented as of this encounter
--- OUTSIDE RECORDS SUMMARY | 2024-11-02 09:07 | XMS_ITS | Encounter Summary ---
Author Organization [facility] Address [address] [place] [address] Care Team Providers Care Patient Financial Services Specialist Name Role Phone oYsvany Gonsalez MD Primary Care Provider [phone] Reason for Visit * Reason Onset Date Comments Results 03/11/2016 Encounter Details Date Type Department Care Team (Late st Contact Info) Description 03/11/[address] [facility] - Family Medicine [address] [place] [phone] Yosvany Gonsalez MD [address] [place] [address] Results Social History Tobacco Use [...] hemorrhage documented in this encounter Care Teams Patient Financial Services Specialist Relationship Specialty Start Date End Date Yosvany Gonsalez MD [address] [place] [phone] PCP - General Internal Medicine 04/08/13 09/03/19 documented as of this encounter
--- OUTSIDE RECORDS SUMMARY | 2024-11-02 09:07 | XMS_ITS | Encounter Summary ---
Author Organization [facility] Address [address] [place] [address] Care Team Providers Care Encoding Machine Operator Name Role Phone Yosvany Gonsalez MD Primary Care Provider [phone] Reason for Visit * Reason Onset Date Comments Question 06/23/2015 Encounter Details Date Type Department Care Team (Late st Contact Info) Description 06/23/2015 Telephone [facility] Medical [facility] - Family Medicine [address] [phone] Yosvany Gonsalez MD [address] [place] [address] Question Social History Tobacco Use [...] on filedocumented in this encounter Care Teams Encoding Machine Operator Relationship Specialty Start Date End Date Yosvany Gonsalez MD [address] [place] [phone] PCP - General Internal Medicine 04/08/13 09/03/19 documented as of this encounter
--- OUTSIDE RECORDS SUMMARY | 2024-11-02 09:08 | XMS_ITS | Encounter Summary ---
Author Organization [facility] Address [address] [place] [place] [address] Care Team Providers Care Vinyl Flooring Installer Name Role Phone Yosvany Gonsalez MD Primary Care Provider [phone] Reason for Visit * Reason Onset Date Comments Medication Clarification 01/15/2015 Encounter Details Date Type Department Care Team (Late st Contact Info) Description 01/15/2015 Telephone [facility] - [address] [facility], [address] [place] [address] Ginny Mckeon MD [address] [place] [address] Medication Clarification Social History Tobacco [...] Perla Rodriguez - 01/15/2015 1:45 PM CDT [facility] received order for Miralax for colon prep-needed clarification on directions. Will cancel and re-order to local pharmacy with revised instructions per provider read back verbal order. Faxed back order cancellation to [facility]. documented in this encounter Plan of Treatment Not on file documented as of this encounter Visit Diagnoses Not on filedocumented in this encounter Care Teams Vinyl Flooring Installer Relationship Specialty Start Date End Date Yosvany Gonsalez MD [address] [place] [address] PCP - General Internal Medicine 04/08/13 09/03/19 documented as of this encounter
--- OUTSIDE RECORDS SUMMARY | 2024-11-02 09:08 | XMS_ITS | Encounter Summary ---
Author Organization [facility] Address [address] [place] [address] Care Team Providers Care Lumber Stacker Name Role Phone Yosvany Gonsalez MD Primary Care Provider [phone] Reason for Visit * Reason Onset Date Comments Opened In Error 01/29/2015 Encounter Details Date Type Department Care Team (Late st Contact Info) Description 01/29/2015 Telephone [facility] Medical [facility] - Family Medicine [address] [phone] Yosvany Gonsalez MD [address] [place] [address] Opened In Error Social History [...] on filedocumented in this encounter Care Teams Lumber Stacker Relationship Specialty Start Date End Date Yosvany Gonsalez MD [address] [place] [phone] PCP - General Internal Medicine 04/08/13 09/03/19 documented as of this encounter
--- OUTSIDE RECORDS SUMMARY | 2024-11-02 09:08 | XMS_ITS | Encounter Summary ---
Author Organization [facility] Address [address] [place] [address] Care Team Providers Care Plaster Tender Name Role Phone Yosvany Gonsalez MD Primary Care Provider [phone] Reason for Visit * Reason Onset Date Comments MEDICATION REFILL 09/03/2014 Encounter Details Date Type Department Care Team (Late st Contact Info) Description 09/03/2014 Refill [facility] - Family [address], [address] [place] [phone] Yosvany Gonsalez MD [address] [place] [phone] MEDICATION REFILL Social History Tobacco Use Types [...] 6:21 PM CDT Last o.v. 10/14/13. Next [facility] appt 10/15/14 for yearly exam. Refilled per [facility] Dr. Gonsalez documented in this encounter Plan of Treatment Not on file documented as of this encounter Visit Diagnoses Not on filedocumented in this encounter Care Teams Plaster Tender Relationship Specialty Start Date End Date Yosvany Gonsalez MD [address] [place] [address] PCP - General Internal Medicine 04/08/13 09/03/19 documented as of this encounter
--- OUTSIDE RECORDS SUMMARY | 2024-11-02 09:08 | XMS_ITS | Encounter Summary ---
Author Organization [facility] Address [address] [place] [address] Care Team Providers Care Managing Partner Name Role Phone Yosvany Gonsalez MD Primary Care Provider [phone] Reason for Visit * Reason Comments Consultation needs screening colo noscopy Encounter Details Date Type Department Care Team (Late st Contact Info) Description 01/14/2015 1:15 PM CDT Office Visit [facility] - [address] [facility], [address] [place] [address] Ginny Mckeon MD [address] [place] [address] Other specified pre-operative examination (Primary [...] fluticasone propionate (FLONASE) 50 MCG/ACT nasal spray [place] 2 Sprays into each nostril once daily. [...] No Follow-up on file. Ginny Mckeon MD Junior Network Engineer documented in this encounter Plan of Treatment Not on file documented as of this encounter Visit Diagnoses Diagnosis Other specified pre-operative examination- Primary Chronic cough Cough documented in this encounter Care Teams Managing Partner Relationship Specialty Start Date End Date Yosvany Gonsalez MD [address] [place] [phone] PCP - General Internal Medicine 04/08/13 09/03/19 documented as of this encounter
--- OUTSIDE RECORDS SUMMARY | 2024-11-02 09:08 | XMS_ITS | Encounter Summary ---
Author Organization [facility] Address [address] [place] [address] Care Team Providers Care Children'S Entertainer Name Role Phone Yosvany Gonsalez MD Primary Care Provider [phone] Reason for Visit * Reason Onset Date Comments Sick 02/12/2014 Encounter Details Date Type Department Care Team (Late st Contact Info) Description 02/12/2014 Telephone [facility] - Family [address], [address] [place] [address] Yosvany Gonsalez MD [address] [place] [address] Sick Social History Tobacco Use [...] on filedocumented in this encounter Care Teams Children'S Entertainer Relationship Specialty Start Date End Date Yosvany Gonsalez MD [address] [place] [phone] PCP - General Internal Medicine 04/08/13 09/03/19 documented as of this encounter
--- OUTSIDE RECORDS SUMMARY | 2024-11-02 09:08 | XMS_ITS | Encounter Summary ---
Author Organization [facility] Address [address] [place] [address] Care Team Providers Care Acute Care Nurse Practitioner Name Role Phone Yosvany Gonsalez MD Primary Care Provider Reason for Visit * Reason Comments Follow-up 6 week f/u discuss c hest xray Encounter Details Date Type Department Care Team (Late st Contact Info) Description 12/05/2014 1:30 PM FAMILY SUPPORT WORKER Office Visit [facility] Medical [facility] - Family Medicine [address] [place] [phone] Yosvany Gonsalez MD [address] [place] [address] RANDY (obstructive sleep apnea) (Primary [...] Comments Blood Pressure 132/80 12/05/2014 1:41 PM FAMILY SUPPORT WORKER Pulse 82 12/05/2014 1:41 PM FAMILY SUPPORT WORKER Temperature - - Respiratory Rate 14 12/05/2014 1:41 PM FAMILY SUPPORT WORKER Oxygen Saturation 99% 12/05/2014 1:41 PM FAMILY SUPPORT WORKER Inhaled Oxygen Concentration - - Weight 77.2 kg (170 lb 3.2 oz) 12/05/2014 1:41 P M FAMILY SUPPORT WORKER Height 177.8 cm (5' 10 ) 12/05/2014 1:41 PM FAMILY SUPPORT WORKER Body Mass Index 24.42 12/05/2014 1:41 PM FAMILY SUPPORT WORKER documented in this encounter Progress Notes * [...] fluticasone propionate (FLONASE) 50 MCG/ACT nasal spray [place] 2 Sprays into each nostril once daily. [...] RPT STUDIES AND FOLLOW. Yosvany Gonsalez MD LY SUPPORT WORKER documented in this encounter Plan of [...] colon documented in this encounter Care Teams Acute Care Nurse Practitioner Relationship Specialty Start Date End Date Yosvany Gonsalez MD [address] [phone] PCP - General Internal Medicine 04/08/13 09/03/19 documented as of this encounter
--- OUTSIDE RECORDS SUMMARY | 2024-11-02 09:08 | XMS_ITS | Encounter Summary ---
Author Organization [facility] Address [address] [place] [address] Care Team Providers Care Bobbin Washer Name Role Phone Yosvany Gonsalez MD Primary Care Provider Encounter Details Date Type Department Care Team (Latest Contact Info) Description 10/06/2014 7:10 AM MARKETING PROGRAMS MANAGER - 10/06/2014 11:59 PM [facility] Hospital Encounter [facility] - Lab Blood Draw [address] [address] Yosvany Gonsalez MD [address] [place] [address] [place] [phone] Discharge Disposition: Home or Self Care Social [...] Comments HEMOGLOBIN A1C Routine 10/06/2014 7:32 AM MARKETING PROGRAMS MANAGER Hyperlipidemia Nicotine dependence Special screening for malignant neoplasm of prostate High risk medications (not anticoagulants) long-term use Annual physical exam CBC W AUTO DIFFERENTIAL Routine 10/06/2014 7:32 AM MARKETING PROGRAMS MANAGER Hyperlipidemia Nicotine dependence Special screening for malignant neoplasm of prostate High risk medications (not anticoagulants) long-term use Tendonitis of shoulder, right Annual physical exam COMPREHENSIVE METABOLIC PANEL Routine 10/06/2014 7:32 AM MARKETING PROGRAMS MANAGER Hyperlipidemia Nicotine dependence Special screening for malignant neoplasm of prostate High risk medications (not anticoagulants) long-term use Tendonitis of shoulder, right Annual physical exam PROSTATE SPECIFIC ANTIGEN SCREEN Routine 10/06/2014 7:32 AM MARKETING PROGRAMS MANAGER Hyperlipidemia Nicotine dependence Special screening for malignant neoplasm of prostate Annual physical exam TSH Routine 10/06/2014 7:32 AM MARKETING PROGRAMS MANAGER Hyperlipidemia Nicotine dependence Special screening for malignant neoplasm of prostate High risk medications (not anticoagulants) long-term use Annual physical exam LIPID PROFILE Routine 10/06/2014 7:32 AM MARKETING PROGRAMS MANAGER Hyperlipidemia Nicotine dependence Special screening for malignant neoplasm of prostate High risk medications (not anticoagulants) long-term use Annual physical exam documented in this encounter Results * PROSTATE SPECIFIC ANTIGEN SCREEN (10/06/2014 7:32 AM MARKETING PROGRAMS MANAGER) Pathologist [facility] PSA 0.64 0.10 - 4.00 ng/mL 10/06/2014 10:35 PM MARKETING PROGRAMS MANAGER [facility] Blood BLOOD SPECIMEN / Unknown Venipuncture / Unknown 10/06/2014 7:32 AM MARKETING PROGRAMS MANAGER 10/06/2014 7:32 AM MARKETING PROGRAMS MANAGER Yosvany Gonsalez MD LAB - CHEMISTRY VIVIANA ADAMS [facility] [address] * (ABNORMAL) HEMOGLOBIN A1C (10/06/2014 7:32 AM MARKETING PROGRAMS MANAGER) Hemoglobin A1c 5.9(H) 4.2 - 5.8 % 10/06/2014 10:49 PM MARKETING PROGRAMS MANAGER [facility] Estimated Average Glucose 123 mg/dL 10/06/2014 10:49 PM MARKETING PROGRAMS MANAGER [facility] Whole Blood BLOOD SPECIMEN WITH EDTA / Unknown Venipuncture / Unknown 10/06/2014 7:32 AM MARKETING PROGRAMS MANAGER 10/06/2014 7:32 AM MARKETING PROGRAMS MANAGER Narrative [facility] - 10/06/2014 10:49 PM MARKETING PROGRAMS MANAGER ? Citizen Of [place] Diabetes Association recommended the following cutoff levels: [...] - CHEMISTRY VIVIANA ADAMS Performing Organization Address City/[facility]/ZIP Co de Phone Number [facility] [address] * TSH (10/06/2014 7:32 AM MARKETING PROGRAMS MANAGER) Pathologist [facility] TSH 1.2454 0.35 - 4.94 uIU/mL 10/06/2014 7:13 PM MARKETING PROGRAMS MANAGER [facility] Blood BLOOD SPECIMEN / Unknown Venipuncture / Unknown 10/06/2014 7:32 AM MARKETING PROGRAMS MANAGER 10/06/2014 7:32 AM MARKETING PROGRAMS MANAGER Yosvany Gonsalez MD LAB - CHEMISTRY VIVIANA ADAMS Performing Organization Address City/[facility]/ZIP Co de Phone Number [facility] [address] * LIPID PROFILE (10/06/2014 7:32 AM MARKETING PROGRAMS MANAGER) Cholesterol 158 <200 mg/dL 10/06/2014 6:58 PM MARKETING PROGRAMS MANAGER [facility] Triglycerides 105 <150 mg/dL 10/06/2014 6:58 PM MARKETING PROGRAMS MANAGER [facility] HDL Cholesterol 42 >40 mg/dL 10/06/2014 6:58 PM MARKETING PROGRAMS MANAGER [facility] Chol HDL Ratio 3.8 1.0 - 6.0 10/06/2014 6:58 PM MARKETING PROGRAMS MANAGER [facility] LDL Calculated 95 65 - 130 mg/dL 10/06/2014 6:58 PM MARKETING PROGRAMS MANAGER [facility] VLDL Calculated 21 10 - 40 mg/dL 10/06/2014 6:58 PM MARKETING PROGRAMS MANAGER [facility] Blood BLOOD SPECIMEN / Unknown Venipuncture / Unknown 10/06/2014 7:32 AM MARKETING PROGRAMS MANAGER 10/06/2014 7:32 AM [facility] Narrative [facility] - 10/06/2014 6:58 PM [facility] Lipid Profile Comment: CHOLESTEROL LEVEL..................CLINICAL INTERPRETATION LESS [...] - CHEMISTRY VIVIANA ADAMS [facility] [address] [place] [address], [facility] * COMPREHENSIVE METABOLIC PANEL (10/06/2014 7:32 AM MARKETING PROGRAMS MANAGER) [facility] Glucose 101 70 - 125 mg/dL 10/06/2014 6:58 PM [facility] Sodium 142 136 - 145 mmol/L 10/06/2014 6:58 PM [facility] Potassium 4.4 3.4 - 4.5 mmol/L 10/06/2014 6:58 PM [facility] Chloride 106 98 - 107 mmol/L 10/06/2014 6:58 PM [facility] CO2 25 22 - 29 mmol/L 10/06/2014 6:58 PM [facility] Calcium 9.39 8.4 - 10.2 mg/dL 10/06/2014 6:58 PM [facility] Anion Gap 15 10 - 20 mmol/L 10/06/2014 6:58 PM [facility] BUN 16.7 8.4 - 25.7 mg/dL 10/06/2014 6:58 PM [facility] Creatinine 0.79 0.72 - 1.25 mg/dL 10/06/2014 6:58 PM [facility] eGFR by MDRD >60 >60 mL/min/1.7 3m2 10/06/2014 6:58 PM MARKETING PROGRAMS MANAGER [facility] eGFR by MDRD >60 >60 mL/min/1.7 3m2 10/06/2014 6:58 PM [facility] Alkaline Phosphatase 44 40 - 150 U/L 10/06/2014 6:58 PM [facility] ALT 16 5 - 55 U/L 10/06/2014 6:58 PM MARKETING PROGRAMS MANAGER [facility] AST 18 5 - 34 U/L 10/06/2014 6:58 PM MARKETING PROGRAMS MANAGER [facility] Protein Total 7.5 6.4 - 8.3 gm/dL 10/06/2014 6:58 PM MARKETING PROGRAMS MANAGER [facility] Albumin 3.8 3.5 - 5.0 gm/dL 10/06/2014 6:58 PM [facility] Globulin Total 3.7 2.6 - 4.0 gm/dL 10/06/2014 6:58 PM [facility] Albumin/Globulin Ratio 1.0 0.9 - 1.6 10/06/2014 6:58 PM [facility] Bilirubin Total 1.0 0.2 - 1.2 mg/dL 10/06/2014 6:58 PM [facility] Blood BLOOD SPECIMEN / Unknown Venipuncture / Unknown 10/06/2014 7:32 AM MARKETING PROGRAMS MANAGER 10/06/2014 7:32 AM MARKETING PROGRAMS MANAGER Yosvany Gonsalez MD LAB - CHEMISTRY VIVIANA ADAMS Performing Organization Address City/State/[facility] Co de Phone Number [facility] [address] * CBC W AUTO DIFFERENTIAL (10/06/2014 7:32 AM MARKETING PROGRAMS MANAGER) WBC 5.7 4.0 - 10.0 x10^9/L 10/06/2014 6:41 PM [facility] RBC 4.81 4.40 - 6.10 x10^12/L 10/06/2014 6:41 PM [facility] Hemoglobin 15.4 13.7 - 17.5 gm/dL 10/06/2014 6:41 PM [facility] Hematocrit 44.4 40.1 - 51.0 % 10/06/2014 6:41 PM [facility] MCV 92.3 78.0 - 100.0 fl 10/06/2014 6:41 PM [facility] MCH 32.0 25.6 - 34.0 pg 10/06/2014 6:41 PM [facility] MCHC 34.7 32.3 - 36.5 gm/dL 10/06/2014 6:41 PM [facility] RDW 13.0 11.6 - 14.4 % 10/06/2014 6:41 PM [facility] MPV 10.7 9.4 - 12.4 fl 10/06/2014 6:41 PM [facility] Platelet Count 250 163 - 369 x10^9/L 10/06/2014 6:41 PM [facility] Neutrophils % 51.4 40.0 - 75.0 % 10/06/2014 6:41 PM [facility] Lymphocytes % 34.6 19.3 - 53.1 % 10/06/2014 6:41 PM [facility] Monocytes % 11.5 4.7 - 12.5 % 10/06/2014 6:41 PM [facility] Eosinophils % 1.2 0.7 - 7.0 % 10/06/2014 6:41 PM [facility] Basophils % 0.9 0.1 - 1.2 % 10/06/2014 6:41 PM [facility] Immature Granulocytes 0.4 0 - 0.5 % 10/06/2014 6:41 PM [facility] Neutrophil Absolute 2.91 1.56 - 6.13 x10^9/L 10/06/2014 6:41 PM [facility] Lymphocytes Absolute 1.96 1.18 - 3.74 x10^9/L 10/06/2014 6:41 PM [facility] Monocytes Absolute 0.65 0.24 - 0.86 x10^9/L 10/06/2014 6:41 PM [facility] Eosinophils Absolute 0.07 0.04 - 0.54 x10^9/L 10/06/2014 6:41 PM [facility] Basophils Absolute 0.05 0.01 - 0.08 x10^9/L 10/06/2014 6:41 PM [facility] Immature Granulocytes Absolute 0.02 0 - 0.03 x10^9/L 10/06/2014 6:41 PM [facility] nRBC Auto 0 <=0 /100 WBC 10/06/2014 6:41 PM [facility] nRBC Absolute 0.00 <=0 x10^9/L 10/06/2014 6:41 PM [facility] Blood BLOOD SPECIMEN / Unknown Venipuncture / Unknown 10/06/2014 7:32 AM MARKETING PROGRAMS MANAGER 10/06/2014 7:32 AM MARKETING PROGRAMS MANAGER Yosvany Gonsalez MD LAB - HEMATOLOGY ORD ERABLES [facility] [address] [place], [place] [id number] [place] [address] documented in this encounter Visit Diagnoses Diagnosis [...] facility documented in this encounter Care Teams Bobbin Washer Relationship Specialty Start Date End Date Yosvany Gonsalez MD [address] [place] [phone] PCP - General Internal Medicine 04/08/13 09/03/19 documented as of this encounter
--- OUTSIDE RECORDS SUMMARY | 2024-11-02 09:08 | XMS_ITS | Encounter Summary ---
Author Organization [facility] Address [address] [place] [address] Care Team Providers Care Falsework Builder Name Role Phone Yosvany Gonsalez MD Primary Care Provider [phone] Reason for Visit * Reason Onset Date Comments Imm Inj 10/06/2014 Encounter Details Date Type Department Care Team (Late st Contact Info) Description 10/06/2014 7:15 AM COMMERCIAL DRIVER Office Visit [facility] [address] [phone] Need for prophylactic vaccination and inoculation against [...] presents today for administration of flu shot. ERCIAL DRIVER documented in this encounter Plan of Treatment Not on file documented as of this encounter Visit Diagnoses Diagnosis Need for prophylactic vaccination and inoculation against influenza- Primary documented in this encounter Care Teams Falsework Builder Relationship Specialty Start Date End Date Yosvany Gonsalez MD [address] [place] [address] [place] [phone] PCP - General Internal Medicine 04/08/13 09/03/19 documented as of this encounter
--- OUTSIDE RECORDS SUMMARY | 2024-11-02 09:08 | XMS_ITS | Encounter Summary ---
Author Organization [facility] Address [address] [place] [address] Care Team Providers Care Progress Man Name Role Phone Yosvany Gonsalez MD Primary Care Provider [phone] Reason for Visit * Reason Comments Yearly Lump/pain Axilla right also has a spo t on right lower arm Cough productive clear wor se in the mornings Encounter Details Date Type Department Care Team (Late st Contact Info) Description 10/15/2014 4:15 PM DRAFTING LAYOUT MAN Office Visit [facility] Medical [facility] - Family Medicine [address], [place] [address] Yosvany Gonsalez MD [address] [place] [address] Annual physical exam (Primary Dx); [...] Comments Blood Pressure 118/74 10/15/2014 4:24 PM DRAFTING LAYOUT MAN Pulse 88 10/15/2014 4:24 PM DRAFTING LAYOUT MAN Temperature - - Respiratory Rate 20 10/15/2014 4:24 PM DRAFTING LAYOUT MAN Oxygen Saturation 99% 10/15/2014 4:24 PM DRAFTING LAYOUT MAN Inhaled Oxygen Concentration - - Weight 77.3 kg (170 lb 6.4 oz) 10/15/2014 4:24 P M DRAFTING LAYOUT MAN Height 170.2 cm (5' 7 ) 10/15/2014 4:24 PM DRAFTING LAYOUT MAN Body Mass Index 26.69 10/15/2014 4:24 PM DRAFTING LAYOUT MAN documented in this encounter Progress Notes * [...] fluticasone propionate (FLONASE) 50 MCG/ACT nasal spray [place] 2 Sprays into each nostril once daily. [...] 51.4 40.0-75.0 % Lymph 34.6 19.3-53.1 % Delta 11.5 4.7-12.5 % Eos 1.2 0.7-7.0 % Baso 0.9 0.1-1.2 % Immature Grans 0.4 0-0.5 % Neutro Abs 2.91 1.56-6.13 x10^9/L Lymph Abs 1.96 1.18-3.74 x10^9/L Delta Abs 0.65 0.24-0.86 x10^9/L Eosin Abs 0.07 [...] MEDS NOTED AND FOLLOW. Yosvany Gonsalez MD TING LAYOUT MAN documented in this encounter Plan of [...] Cough documented in this encounter Care Teams Progress Man Relationship Specialty Start Date End Date Yosvany Gonsalez MD [address] [place] [phone] PCP - General Internal Medicine 04/08/13 09/03/19 documented as of this encounter
--- OUTSIDE RECORDS SUMMARY | 2024-11-02 09:08 | XMS_ITS | Encounter Summary ---
Author Organization [facility] Address [address] [place] [address] Care Team Providers Care Medical Device Sales Name Role Phone Yosvany Gonsalez MD Primary Care Provider [phone] Reason for Visit * Reason Onset Date Comments Refill Request 10/23/2014 Encounter Details Date Type Department Care Team (Late st Contact Info) Description 10/23/2014 Telephone [facility] Medical [facility] - Family Medicine [address] [address] Yosvany Gonsalez MD [address] [place] [phone] Refill Request Social History Tobacco Use Types [...] AM CST He s calling stating that [facility] called him and they do not have the Claritin in stock.Sent to [place] [employer]. [employer] AX DEVELOPER documented in this encounter Plan of Treatment Not on file documented as of this encounter Visit Diagnoses Not on filedocumented in this encounter Care Teams Medical Device Sales Relationship Specialty Start Date End Date Yosvany Gonsalez MD [address] [place] [phone] PCP - General Internal Medicine 04/08/13 09/03/19 documented as of this encounter
--- OUTSIDE RECORDS SUMMARY | 2024-11-02 09:08 | XMS_ITS | Encounter Summary ---
Author Organization [facility] Address [address] [place] [address] Care Team Providers Care Water Pumping Station Engineer Name Role Phone Yosvany Gonsalez MD Primary Care Provider [phone] Reason for Visit * Reason Onset Date Comments Refill Request 01/29/2015 Encounter Details Date Type Department Care Team (Late st Contact Info) Description 01/29/2015 Telephone [facility] - [address] [facility], [address] [place] [address] [place] [address] [place] [address] Refill Request Social History Tobacco Use [...] on filedocumented in this encounter Care Teams Water Pumping Station Engineer Relationship Specialty Start Date End Date Yosvany Gonsalez MD [address] [place] [phone] PCP - General Internal Medicine 04/08/13 09/03/19 documented as of this encounter
--- OUTSIDE RECORDS SUMMARY | 2024-11-02 09:08 | XMS_ITS | Encounter Summary ---
Author Organization [facility] Address [address] [place] [address] Care Team Providers Care Analyst Food And Beverage Name Role Phone Yosvany Gonsalez MD Primary Care Provider [phone] Reason for Visit * Reason Onset Date Comments Question 01/28/2015 Encounter Details Date Type Department Care Team (Late st Contact Info) Description 01/28/[address] [facility] - [address] [facility], [address] [place] [address] Ginny Mckeon MD [address] [place] [address] Question Social History Tobacco Use [...] - 01/28/2015 11:41 AM CDT Analy from [facility] called is asking if pt [...] not a family history of colon cancer [phone] VM is confidential. documented in this encounter Plan of Treatment Not on file documented as of this encounter Visit Diagnoses Not on filedocumented in this encounter Care Teams Analyst Food And Beverage Relationship Specialty Start Date End Date Yosvany Gonsalez MD [address] [place] [phone] PCP - General Internal Medicine 04/08/13 09/03/19 documented as of this encounter
--- OUTSIDE RECORDS SUMMARY | 2024-11-02 09:09 | XMS_ITS | Encounter Summary ---
Author Organization [facility] Address [address] [place] [address] Care Team Providers Care Resident Associate Name Role Phone Yosvany Gonsalez MD Primary Care Provider [phone] Reason for Visit * Reason Onset Date Comments MEDICATION REFILL 06/04/2013 Encounter Details Date Type Department Care Team (Late st Contact Info) Description 06/04/2013 Refill [facility] - Family [address] [place] [address] Yosvany Gonsalez MD [address] [place] [address] MEDICATION REFILL Social History Tobacco [...] on filedocumented in this encounter Care Teams Resident Associate Relationship Specialty Start Date End Date Yosvany Gonsalez MD [address] [place] [phone] PCP - General Internal Medicine 04/08/13 09/03/19 documented as of this encounter
--- OUTSIDE RECORDS SUMMARY | 2024-11-02 09:09 | XMS_ITS | Encounter Summary ---
Author Organization [facility] Address [address] [place] [address] Care Team Providers Care Chain Forming Machine Operator Name Role Phone Yosvany Gonsalez MD Primary Care Provider [phone] Reason for Visit * Reason Comments Follow-up 6 months Encounter Details Date Type Department Care Team (Late st Contact Info) Description 10/14/2013 4:15 PM JIRA ADMINISTRATOR Office Visit [facility] - Family [address], [address] [place] [address] Yosvany Gonsalez MD [address] [place] [address] [place] [address] Annual physical exam (Primary [...] Comments Blood Pressure 122/82 10/14/2013 4:53 PM JIRA ADMINISTRATOR Pulse 86 10/14/2013 4:53 PM JIRA ADMINISTRATOR Temperature - - Respiratory Rate 16 10/14/2013 4:53 PM JIRA ADMINISTRATOR Oxygen Saturation 96% 10/14/2013 4:53 PM JIRA ADMINISTRATOR Inhaled Oxygen Concentration - - Weight 76.2 kg (168 lb) 10/14/2013 4:53 PM JIRA ADMINISTRATOR Height 170.2 cm (5' 7 ) 10/14/2013 4:53 PM JIRA ADMINISTRATOR Body Mass Index 26.31 10/14/2013 4:53 PM JIRA ADMINISTRATOR documented in this encounter Progress Notes * [...] % Lymph 42 14 - 46 % Gila 9 4 - 12 % Eos 2 0 - 5 % Baso 1 0 - 3 % Immature Cells NOT NEEDED Gran Abs 1.9 1.4 - 7.0 x10E3/uL Lymph Abs 1.7 0.7 - 3.1 x10E3/uL Gila Abs 0.4 0.1 - 0.9 x10E3/uL Eos [...] ON PATIENT'S HEALTH DISCUSSED. Yosvany Gonsalez MD ADMINISTRATOR documented in this encounter Plan of [...] medications documented in this encounter Care Teams Chain Forming Machine Operator Relationship Specialty Start Date End Date Yosvany Gonsalez MD [address] [place] [phone] PCP - General Internal Medicine 04/08/13 09/03/19 documented as of this encounter
--- OUTSIDE RECORDS SUMMARY | 2024-11-02 09:09 | XMS_ITS | Encounter Summary ---
Author Organization [facility] Address [address] [place] [address] Care Team Providers Care Pest Management Supervisor Name Role Phone Yosvany Gonsalez MD Primary Care Provider [phone] Reason for Visit * Reason Onset Date Comments Order 01/29/2014 Encounter Details Date Type Department Care Team (Late st Contact Info) Description 01/29/2014 Telephone [facility] - Family Medicine [address] [place] [address], [address] [place] [phone] Yosvany Gonsalez MD [address] [place] [address] Order Social History Tobacco Use [...] to Leidy Ramos. * Telephone Encounter - Momo Delgado MD - 01/29/2014 2:07 PM CDT [...] leg documented in this encounter Care Teams Pest Management Supervisor Relationship Specialty Start Date End Date Yosvany Gonsalez MD [address] [place] [phone] PCP - General Internal Medicine 04/08/13 09/03/19 documented as of this encounter
--- OUTSIDE RECORDS SUMMARY | 2024-11-02 09:09 | XMS_ITS | Encounter Summary ---
Author Organization [facility] Address [address] [place] [address] Care Team Providers Care National Expansion Recruiter Name Role Phone Unavailable Primary Care Provider Unavailabl e Encounter Details Date Type Department Care Team (Late st Contact Info) Description 04/03/2013 Orders Only [facility] Medical [facility] - Family Medicine [address] [place] [address], [address] [place] [address] Yosvany Gonsalez MD [address] [place] [address] [place] [address] Social History Tobacco Use Types [...] PM CDT Narrative Resulting Agency Comment [facility] [address] ??[facility] [phone] Yosvany Gonsalez MD LAB - CHEMISTRY VIVIANA [...] PM CDT Narrative Resulting Agency Comment [facility] [address] ??[facility] [phone] Yosvany Gonsalez MD LAB - CHEMISTRY VIVIANA ADAMS [facility] ACCOUNT BILL documented in this encounter Visit Diagnoses Not on filedocumented in this encounter
--- OUTSIDE RECORDS SUMMARY | 2024-11-02 09:09 | XMS_ITS | Encounter Summary ---
Author Organization [facility] Address [address] [place] [address] Care Team Providers Care Certified Health Education Specialist Name Role Phone Yosvany Gonsalez MD Primary Care Provider [phone] Reason for Visit * Reason Onset Date Comments Med Question 04/16/2013 Encounter Details Date Type Department Care Team (Late st Contact Info) Description 04/16/2013 Telephone [facility] Medical [facility] - Family Medicine [address] [place] [address] [address] [place] [phone] Yosvany Gonsalez MD [address] [place] [address] [place] [address] Med Question Social History Tobacco [...] CDT states to call his cell phone [phone] * Telephone Encounter - Yosvany Gonsalez MD [...] filedocumented in this encounter Care Teams Certified Health Education Specialist Relationship Specialty Start Date End Date Yosvany Gonsalez MD [address] [phone] PCP - General Internal Medicine 04/08/13 09/03/19 documented as of this encounter
--- OUTSIDE RECORDS SUMMARY | 2024-11-02 09:09 | XMS_ITS | Encounter Summary ---
Author Organization [facility] Address [address] [place] [address] Care Team Providers Care Headend Technician Name Role Phone Unavailable Primary Care Provider Unavailabl e Reason for Visit * Reason Onset Date Comments Refill Request 02/07/2013 Encounter Details Date Type Department Care Team (Late st Contact Info) Description 02/07/2013 Telephone [facility] - Family Medicine [address] [place] [address], [address] [place] [phone] Yosvany Gonsalez MD [address] [place] [address] [place] [phone] Refill Request Social History Tobacco Use Types [...]
--- OUTSIDE RECORDS SUMMARY | 2024-11-02 09:09 | XMS_ITS | Encounter Summary ---
Author Organization [facility] Address [address] [place] [address] Care Team Providers Care Inspector And Adjuster Golf Club Head Name Role Phone Yosvany Gonsalez MD Primary Care Provider [phone] Reason for Visit * Reason Comments Pain right knee and right shoulder pain Reflux Encounter Details Date Type Department Care Team (Latest Contact Info) Description 04/15/2013 4:00 PM CDT Office Visit [facility] - Family Medicine [address] [place] [address], [address] [place] [address] Yosvany Gonsalez MD [address] [place] [address] [place] [address] Hyperlipidemia (Primary Dx); Nicotine dependence; [...] on: 10/01/2013 08:05 AM Modules accepted: Orders ENT EXAMINER documented in this encounter Plan of Treatment Not on file documented as of this encounter Procedures Procedure Name Priority Date/Time Associated Diagnosis Comments URIC ACID BLOOD Routine 10/01/2013 8:55 AM GARMENT EXAMINER Hyperlipidemia Nicotine dependence Special screening for malignant neoplasm of prostate High risk medications (not anticoagulants) long-term use Tendonitis of shoulder, right HEMOGLOBIN A1C Routine 10/01/2013 8:55 AM GARMENT EXAMINER Hyperlipidemia Nicotine dependence Special screening for malignant neoplasm of prostate High risk medications (not anticoagulants) long-term use Tendonitis of shoulder, right CBC W AUTO DIFFERENTIAL Routine 10/01/2013 8:55 AM GARMENT EXAMINER Hyperlipidemia Nicotine dependence Special screening for malignant neoplasm of prostate High risk medications (not anticoagulants) long-term use Tendonitis of shoulder, right COMPREHENSIVE METABOLIC PANEL Routine 10/01/2013 8:55 AM GARMENT EXAMINER Hyperlipidemia Nicotine dependence Special screening for malignant neoplasm of prostate High risk medications (not anticoagulants) long-term use Tendonitis of shoulder, right PROSTATE SPECIFIC ANTIGEN SCREEN Routine 10/01/2013 8:55 AM GARMENT EXAMINER Hyperlipidemia Nicotine dependence Special screening for malignant neoplasm of prostate High risk medications (not anticoagulants) long-term use Tendonitis of shoulder, right TSH Routine 10/01/2013 8:55 AM GARMENT EXAMINER Hyperlipidemia Nicotine dependence Special screening for malignant neoplasm of prostate High risk medications (not anticoagulants) long-term use Tendonitis of shoulder, right LIPID PROFILE Routine 10/01/2013 8:55 AM GARMENT EXAMINER Hyperlipidemia Nicotine dependence Special screening for malignant neoplasm of prostate High risk medications (not anticoagulants) long-term use Tendonitis of shoulder, right documented in this encounter Results * (ABNORMAL) HEMOGLOBIN A1C (10/01/2013 8:55 AM GARMENT EXAMINER) Hemoglobin A1c 5.7(H) 4.8 - 5.6 % [facility] ACCOUNT BILL Comment: ? . ? Increased risk for diabetes: 5.7 - 6.4 ? Diabetes: >6.4 ? Glycemic control for adults with diabetes: <7.0 Whole blood specimen (specimen) BLOOD SPECIMEN WITH EDTA / Unknown 10/01/2013 8:55 AM GARMENT EXAMINER 10/01/2013 12:59 PM GARMENT EXAMINER Narrative Resulting Agency Comment [facility] [address] [phone] Yosvany Gonsalez MD LAB - CHEMISTRY VIVIANA ADAMS [facility] ACCOUNT BILL * URIC ACID BLOOD (10/01/2013 8:55 AM GARMENT EXAMINER) Uric Acid 5.2 3.7 - 8.6 mg/dL [facility] ACCOUNT BILL Comment:Therapeutic target f or gout patients: <6.0 Blood specimen (specimen) BLOOD SPECIMEN / Unknown 10/01/2013 8:55 AM GARMENT EXAMINER 10/01/2013 12:59 PM GARMENT EXAMINER Narrative Resulting Agency Comment [facility] [address] ??[place] [phone] Yosvany Gonsalez MD LAB - CHEMISTRY VIVIANA ADAMS [facility] ACCOUNT BILL * TSH (10/01/2013 8:55 AM GARMENT EXAMINER) TSH 1.050 0.450 - 4.500 uIU/mL [facility] ACCOUNT BILL Blood specimen (specimen) BLOOD SPECIMEN / Unknown 10/01/2013 8:55 AM GARMENT EXAMINER 10/01/2013 12:59 PM GARMENT EXAMINER Narrative Resulting Agency Comment [facility] [place] [address] ??[place] [phone] Yosvany Gonsalez MD LAB - CHEMISTRY VIVIANA ADAMS Performing Organization Address [facility] Co de Phone Number [facility] ACCOUNT BILL * PROSTATE SPECIFIC ANTIGEN SCREEN (10/01/2013 8:55 AM GARMENT EXAMINER) PSA 0.6 0.0 - 4.0 ng/mL [facility] ACCOUNT BILL Comment: Atif ECLIA methodology. ? . According to the [place] [employer], Serum PSA should decrease and [...] BLOOD SPECIMEN / Unknown 10/01/2013 8:55 AM GARMENT EXAMINER 10/01/2013 12:59 PM GARMENT EXAMINER Narrative Resulting Agency Comment [facility] [address] ??[facility] [phone] Yosvany Gonsalez MD LAB - CHEMISTRY VIVIANA ADAMS Performing Organization Address [facility] Co de Phone Number [facility] ACCOUNT BILL * (ABNORMAL) LIPID PROFILE (10/01/2013 8:55 AM GARMENT EXAMINER) Cholesterol 173 100 - 199 mg/dL [facility] [...] BLOOD SPECIMEN / Unknown 10/01/2013 8:55 AM GARMENT EXAMINER 10/01/2013 12:59 PM GARMENT EXAMINER Narrative Resulting Agency Comment [facility] [address] ??[facility] [phone] Yosvany Gonsalez MD LAB - CHEMISTRY VIVIANA ADAMS [facility] ACCOUNT BILL * (ABNORMAL) COMPREHENSIVE METABOLIC PANEL (10/01/2013 8:55 AM GARMENT EXAMINER) Glucose 88 65 - 99 mg/dL [facility] [...] BLOOD SPECIMEN / Unknown 10/01/2013 8:55 AM GARMENT EXAMINER 10/01/2013 12:59 PM GARMENT EXAMINER Narrative Resulting Agency Comment [facility] [address] [facility] ??[facility] [phone] Yosvany Gonsalez MD LAB - CHEMISTRY VIVIANA ADAMS [facility] ACCOUNT BILL * CBC W AUTO DIFFERENTIAL (10/01/2013 8:55 AM GARMENT EXAMINER) WBC 4.1 3.4 - 10.8 x10E3/uL [facility] [...] BLOOD SPECIMEN / Unknown 10/01/2013 8:55 AM GARMENT EXAMINER 10/01/2013 12:59 PM GARMENT EXAMINER Narrative Resulting Agency Comment [facility] [place] [address] [facility] ??[place] [phone] Yosvany Gonsalez MD LAB - HEMATOLOGY ORD [...] unspecified documented in this encounter Care Teams Inspector And Adjuster Golf Club Head Relationship Specialty Start Date End Date Yosvany Gonsalez MD [address] [place] [phone] PCP - General Internal Medicine 04/08/13 09/03/19 documented as of this encounter
--- OUTSIDE RECORDS SUMMARY | 2024-11-02 09:10 | XMS_ITS | Encounter Summary ---
Author Organization [facility] Address [address] [place] [address]. [place], [place] [address] [place] [address] Care Team Providers Care Poker Room Manager Name Role Phone Ilir Nelson Primary Care Provider [phone] Reason for Visit * Reason Comments Follow Up 6 month follow up Hypertension Hyperlipidemia Medicare Wellness Encounter Details Date Type Department Care Team (Late st Contact Info) Description 07/29/2024 7:00 AM CDT Office Visit [facility] Group Family & Internal Medicine [facility] [address] [place] [phone] Ilir Nelson PA [address] [place] [address] Follow Up (6 month follow up); Hypertension; [...] on file Legal Sex Male 9:58 PM DRY HEAT ROOM ATTENDANT Gender Identity Not on file Sexual [...] Assessment Author Status No 10/02/2021 12:38 PM DRY HEAT ROOM ATTENDANT Acti ve * RETIRED Are you blind or do you have serious difficulty seeing, even when wearing glasses? Answer Date of Assessment Author Status No 10/02/2021 12:38 PM DRY HEAT ROOM ATTENDANT Acti ve * Do you have serious difficulty walking or climbing stairs? Answer Date of Assessment Author Status No 10/02/2021 12:38 PM DRY HEAT ROOM ATTENDANT Annette Jorge R N Active * Do you have difficulty dressing or bathing? Answer Date of Assessment Author Status No 10/02/2021 12:38 PM DRY HEAT ROOM ATTENDANT Annette Jorge R N Active * Because of a physical, mental, or emotional condition, do you have difficulty doing errands alone such as visiting a doctor's office or shopping? Answer Date of Assessment Author Status No 10/02/2021 12:38 PM DRY HEAT ROOM ATTENDANT Annette Jorge R N Active documented as of this encounter Mental Status * Because of a physical, mental, or emotional condition, do you have serious difficulty concentrating, remembering, or making decisions? Answer Entry Date Author Status No 10/02/2021 12:38 PM DRY HEAT ROOM ATTENDANT Annette Jorge R N Active documented in this encounter Patient Instructions * Patient Instructions* GERI Pritchett - 07/29/2024 7:00 AM CDT Vit D3 9602-5669 units daily with largest meal PERSONALIZED PREVENTION [...] Written by the doctors and editors at [facility] What are advance directives???--??Advance directives are legal [...] proxy (also called the durable power of undercollar baster for health care) - The health care [...] process is complete. This topic retrieved from [employer] on: Nov 13, 2018. Topic 06557 Version 11.0 table 1: Resources that can help you make advance directives ?? Address Phone number Website [facility] [address] [facility] [place] Toll-free: (829) [facility] [ ] http://assets.aar.org/external_sites/ caregiving/multimedia/EG_AdvanceDirectives.html Aging with Dignity (Five Wishes form) [address] [place] [address] Toll-free: ([phone] 5WISHES [ ] www.agingwithdignity.org CaringInfo ?? Toll-free: www.caringinfo.org [facility] National [employer] c/o [employer]. [address] [place] [address] www.Infomous.org ALCOHOL Your Health Risk Assessment indicates you [...] Website: https://www.aa.org/ Find an A.A. location nearby: https://www.aa.org/pages/en_US/hyna-zz-yrvureqsa Find a meeting by phone [phone] Or online at [email or web address] FALL RISK Guidelines [...] GERI Pritchett as PCP - General (Physician Beater Room Supervisor Medical) HEALTH RISK ASSESSMENT 04/10/2023 7:59 AM [...] biopsy performed by Federico Mayer MD at [facility] OR COLOSTOMY reversable HERNIA REPAIR Right [facility] HERNIA REPAIR Left [facility] JOINT REPLACEMENT NECK/CHEST PROCEDURE UNLISTED Right [facility], re-built right side of neck. REMOVAL OF SPERM DUCT(S) SMALL INTESTINE SURGERY bowel rupture TOTAL KNEE ARTHROPLASTY Bilateral ZANA Partial KR, done @ [facility] Family History Problem Relation Name Age of Onset Arthritis in Adults Mother Mcclelland Dementia Mother Mcclelland at the end per patient Hypertension Mother Mcclelland Throat cancer Father [place] Heart Disease Father Jose Cancer Father [place] Lung Cancer Brother COPD Brother Jacinto Cancer [...] biopsy performed by Federico Mayer MD at [facility] OR COLOSTOMY reversable HERNIA REPAIR Right [facility] HERNIA REPAIR Left [facility] JOINT REPLACEMENT NECK/CHEST PROCEDURE UNLISTED Right [facility], re-built right side of neck. REMOVAL OF SPERM DUCT(S) SMALL INTESTINE SURGERY bowel rupture TOTAL KNEE ARTHROPLASTY Bilateral ZANA Partial KR, done @ [facility] Social History Socioeconomic History Marital [...] Age of Onset Arthritis in Adults Mother Mcclelland Dementia Mother Jose at the end per patient Hypertension Mother Mcclelland Throat cancer Father Jose Heart Disease Father [...] 01/27/2025 7:00 AM CDT Office Visit [facility] Medical Group Family & Internal Medicine [facility] [address] [place] [phone] [place] [address] [place] [phone] 10/22/2025 9:15 AM DRY HEAT ROOM ATTENDANT Office Visit [facility] [address] Mily Gan MD [facility]. [address] [phone] documented as of this encounter Goals Goal [...] DIP (07/29/2024) COLOR (U) DARK YELLOW YELLOW [id number], [place] TRANSPARENCY CLOUDY(A) CLEAR MG-[address], [place] GLUCOSE (U) NEGATIVE NEGATIVE MG/DL [id number] BILIRUBIN (U) NEGATIVE NEGATIVE MG-[address] KETONES MG/DL (U) NEGATIVE NEGATIVE MG/DL [id number], [facility] SPECIFIC GRAVITY (U) 1.020 1.001 - 1.035 MG-[address], [facility] BLOOD (U) NEGATIVE NEGATIVE MG-[address], [place] U PH 7.0 5.0 - 9.0 MG-[address], [facility] PROTEIN (U) NEGATIVE NEGATIVE mg/dL MG-[address], [facility] UROBILINOGEN 0.2 0.2 - 1.0 EU/dL = mg/dL MG-[address], [facility] NITRITES NEGATIVE NEGATIVE MG/DL MG-[address], [facility] LEUKOCYTES (U) NEGATIVE NEGATIVE MG-[address], [facility] URINE SPECIMEN OBTAINED BY CLEAN CATCH PROCEDURE / Unknown 07/29/2024 us Ilir NEVAREZ URINE ORDERABLES Final Result [id number] [address] [place] [address], documented in this encounter Visit Diagnoses Diagnosis [...] documented as of this encounter Care Teams Poker Room Manager Relationship Specialty [place] [address] [place] [address] PCP - General Physician Beater Room Supervisor Medical 01/06/24 documented as of this encounter
--- OUTSIDE RECORDS SUMMARY | 2024-11-02 09:10 | XMS_ITS | Encounter Summary ---
Author Organization [facility] Address [address] [place] [address]. [place], [place] [address] [place] [address] Care Team Providers Care Pet Crematory Worker Name Role Phone Ilir Nelson Primary Care Provider [phone] Reason for Visit * Reason Onset Date Comments Pre-visit Gap Closure 01/17/2024 Encounter Details Date Type Department Care Team (Late st Contact Info) Description 01/17/2024 Patient Outreach [facility] Medical Group Family & Internal Medicine [facility] [address] [place] [phone] Lindsay Hdez MA Pre-visit Gap Closure [...] file Legal Sex Male 9:58 PM MACHINE DESIGN CHECKER Gender Identity Not on file Sexual Orientation Not on file documented as of this encounter Functional Status * RETIRED Are you deaf or do you have serious difficulty hearing Answer Date of Assessment Author Status No 10/02/2021 12:38 PM MACHINE DESIGN CHECKER Acti ve * RETIRED Are you blind or do you have serious difficulty seeing, even when wearing glasses? Answer Date of Assessment Author Status No 10/02/2021 12:38 PM MACHINE DESIGN CHECKER Acti ve * Do you have serious difficulty walking or climbing stairs? Answer Date of Assessment Author Status No 10/02/2021 12:38 PM MACHINE DESIGN CHECKER Annette Jorge R N Active * Do you have difficulty dressing or bathing? Answer Date of Assessment Author Status No 10/02/2021 12:38 PM MACHINE DESIGN CHECKER Annette Jorge R Susan Active * Because of a physical, mental, or emotional condition, do you have difficulty doing errands alone such as visiting a doctor's office or shopping? Answer Date of Assessment Author Status No 10/02/2021 12:38 PM MACHINE DESIGN CHECKER Annette Jorge R Susan Active documented as of this encounter Mental Status * Because of a physical, mental, or emotional condition, do you have serious difficulty concentrating, remembering, or making decisions? Answer Entry Date Author Status No 10/02/2021 12:38 PM MACHINE DESIGN CHECKER Annette Jorge R N Active documented in [...] Description 01/27/2025 7:00 AM CDT Office Visit [facility] Family & Internal Medicine - [place] [address] [place] [address] [place] [address] [place] [address] 10/22/2025 9:15 AM MACHINE DESIGN CHECKER Office Visit [facility] [address] Mily Gan MD [facility] [address] [place] [address] documented as of this encounter [...] documented as of this encounter Care Teams Pet Crematory Worker Relationship Specialty [place] [address] [place] [address] PCP - General Physician [facility] 01/06/24 documented as of this encounter
--- OUTSIDE RECORDS SUMMARY | 2024-11-02 09:10 | XMS_ITS | Encounter Summary ---
Author Organization [facility] Address [address] [place] [address]. [place], [place] [address] [place] [address] Care Team Providers Care Senior Games Technician Name Role Phone Ilir Nelson Primary Care Provider [phone] Encounter Details Date Type Department Care Team (Latest Contact Info) Description 07/24/2024 9:39 AM T - 07/24/2024 11:59 PM [facility] Hospital Encounter [facility] [address] [place], [place] [phone] [place] [address] [place] [address] Discharge Disposition: Home or Self Care (Routine [...] on file Legal Sex Male 9:58 PM DRIVER MEDIC Gender Identity Not on file Sexual Orientation Not on file documented as of this encounter Functional Status * RETIRED Are you deaf or do you have serious difficulty hearing Answer Date of Assessment Author Status No 10/02/2021 12:38 PM DRIVER MEDIC Acti ve * RETIRED Are you blind or do you have serious difficulty seeing, even when wearing glasses? Answer Date of Assessment Author Status No 10/02/2021 12:38 PM DRIVER MEDIC Acti ve * Do you have serious difficulty walking or climbing stairs? Answer Date of Assessment Author Status No 10/02/2021 12:38 PM DRIVER MEDIC Annette Jorge R N Active * Do you have difficulty dressing or bathing? Answer Date of Assessment Author Status No 10/02/2021 12:38 PM DRIVER MEDIC Annette Jorge R N Active * Because of a physical, mental, or emotional condition, do you have difficulty doing errands alone such as visiting a doctor's office or shopping? Answer Date of Assessment Author Status No 10/02/2021 12:38 PM DRIVER MEDIC Annette Jorge R N Active documented as of this encounter Mental Status * Because of a physical, mental, or emotional condition, do you have serious difficulty concentrating, remembering, or making decisions? Answer Entry Date Author Status No 10/02/2021 12:38 PM DRIVER MEDIC Annette Jorge R N Active documented in [...] [facility] [address] [place] [address] [place] [phone] [place] [phone] 10/22/2025 9:15 AM DRIVER MEDIC Office Visit [facility] [phone] Mily Gan MD [address] [address] documented as of this encounter Goals Goal [...] 158 <200.0 MG/DL 07/24/2024 10:58 AM CDT [facility] TRIGLYCERIDES 65 <150 MG/DL 07/24/2024 10:58 AM CDT [facility] HDL 52 >40.0 MG/DL 07/24/2024 10:58 AM CDT [facility] LDL (CALCULATED) 93 <100 MG/DL 07/24/20 10:58 AM CDT [facility] NON HDL CHOLESTEROL 106 <130 MG/DL 07/24 10:58 AM T [facility] CHOL/HDL RATIO 3.0 0.0 - 4.5 07/24/2024 10:58 AM T [facility] VLDL CALCULATION 13 5 - 55 MG/DL 07/24/2024 10:[address] [facility] LIPID INTERPRETATION 07/24/2024 10:58 AM T [facility] Comment: NIH CONCENSUS [...] [facility] Final Result Performing Organization Address [facility] Co de Phone Number [facility] [address] [place] [address], [place] [phone] * THYROXINE, FREE (FT4) (07/24/2024 9:48 AM CDT) Pathologist [facility] FREE T4 0.90 0.76 - 1.46 NG/DL 07/24/2024 10:58 AM CDT [facility] 07/24/2024 9:48 AM CDT Ilir [facility] Final Result Performing Organization Address [facility] de Phone Number [facility] [address] [place] [address], [place] [phone] * (ABNORMAL) COMPREHENSIVE METABOLIC PANEL (07/24/2024 9:48 AM CDT) GLUCOSE 100(H) 70 - 99 MG/DL 07/24/2024 10:58 AM CDT [facility] BUN 14 7 - 18 MG/DL 07/24/2024 10:58 AM CDT [facility] CREATININE S/P/B 0.80 0.7 - 1.3 MG/DL 07/24/2024 10:58 AM CDT [facility] SODIUM S/P/B 141 136 - 145 MMOL/L 07/24/2024 10:58 AM CDT [facility] POTASSIUM S/P/B 4.4 3.5 - 5.1 MMOL/L 07/24/2024 10:[address] [facility] CHLORIDE S/P/B 105 100 - 108 MMOL/L 07/24/2024 10:[address] [facility] CO2 28.8 21 - 32 MMOL/L 07/24/2024 10:[address] [facility] CALCIUM S/P/B 8.8 8.5 - 10.1 MG/DL 07/24/2024 10:[address] [facility] BILIRUBIN TOTAL S/P/B 1.2 0.2 - 1.2 MG/DL 07/24/2024 10:[address] [facility] TOTAL PROTEIN S/P/B 7.6 6.4 - 8.2 G/DL 07/24/2024 10:[address] [facility] ALBUMIN S/P/B 3.8 3.4 - 5.0 G/DL 07/24/2024 10:[address] [facility] AST 25 15 - 37 U/L 07/24/2024 10:[address] [facility] ALT 37 16 - 60 U/L 07/24/2024 10:[address] [facility] ALKALINE PHOSPHATASE S/P/B 53 50 - 136 U/L 07/24/2024 10:[address] [facility] ANION GAP 7.2 5 - 15 MMOL/L 07/24/2024 10:[address] [facility] BUN CREATININE RATIO 17.5 6 - 26 07/24/2024 10:[address] [facility] A/G RATIO 1.0 1.0 - 2.0 RATIO 07/24/2024 10:58 AM CDT [facility] GFR ESTIMATE >90 >90 ML/MIN/1.7 3 M2 07/24/2024 10:58 AM CDT [facility] Comment: NOTE: eGFR is not calculated for patients <18 years of age. This is an estimated GFR calculation using the new CKD EPI creatinine equation without race and so does not require a correction factor for race. This estimated GFR should not be used for calculating drug doses. 07/24/2024 9:48 AM CDT us Ilir [facility] Final Result [facility] [address] [place] [address], * (ABNORMAL) CBC W/DIFF AUTOMATED (07/24/2024 9:48 AM CDT) WBC 4.93 4.4 - 11.0 x10'3/uL 07/24/2024 10:15 AM CDT [facility] RBC 4.36(L) 4.50 - 5.90 x10'6/uL 07/24/2024 10:15 AM CDT [facility] HGB 14.2 14.0 - 17.5 G/DL 07/24/2024 10:15 AM CDT [facility] HCT 41.7 41.5 - 50.4 % 07/24/2024 10:15 AM CDT [facility] MCV 95.6 80.0 - 96.0 FL 07/24/2024 10:15 AM CDT [facility] MCH 32.6(H) 26.5 - 31.4 PG 07/24/2024 10:15 AM CDT [facility] MCHC 34.1 31.9 - 34.8 G/DL 07/24/2024 10:15 AM CDT [facility] RDW 12.7 12.3 - 14.3 % 07/24/2024 10:15 AM T [facility] PLT 193 151 - 353 x10'3/uL 07/24/2024 10:[address] [facility] MPV 10.6 9.7 - 11.9 FL 07/24/2024 10:15 AM T [facility] RBC MORPHOLOGY NORMAL 07/24/2024 10:15 AM T [facility] PLT MORPH. NORMAL 07/24/2024 10:15 AM T [facility] WBC MORPHOLOGY NORMAL 07/24/2024 10:[address] [facility] LYMPHOCYTES % 32.3 15.8 - 45.0 % 07/24/2024 10:[address] [facility] NEUTROPHILS % 53.5 42.1 - 71.9 % 07/24/2024 10:[address] [facility] MONOCYTES % 11.4 5.7 - 12.5 % 07/24/2024 10:[address] [facility] EOSINOPHILS 1.4 0.0 - 5.6 % 07/24/2024 10:[address] [facility] BASOPHILS 1.0 0.0 - 1.3 % 07/24/2024 10:[address] [facility] ABS. NEUTROPHILS 2.64 1.40 - 6.00 x10'3/uL 07/24/2024 10:[address] [facility] IMMATURE GRANS % 0.4 0.0 - 0.5 % 07/24/2024 10:[address] [facility] ABS. LYMPHOCYTES 1.59 0.80 - 4.70 x10'3/uL 07/24/2024 10:[address] [facility] 07/24/2024 9:48 AM CDT Ilir [facility] Final Result [facility] [address] [place] [address], [place] [phone] * INSULIN,TOTAL (07/24/2024 9:48 AM CDT) Pathologist [facility] INSULIN 10.0 <=18.4 uIU/mL 07/28/2024 3:36 PM CDT [facility] Comment: Risk: Optimal ??< or = 18.4 Moderate ? NA High ? >18.4 Adult cardiovascular event risk category cut points (optimal, moderate, high) are based on Insulin Reference interval studies performed at [facility] in 2021. Test Performed by [employer], [facility], [address] [place] [address] Jay Hirsch M.D., Ph.D., Director of Laboratories , [facility] [id number] 07/24/2024 9:48 AM CDT Il[facility] Final Result Performing Organization Address [facility]/ZIP Co de Phone Number [facility] [address] , * VITAMIN D, 25 [place] (07/24/2024 9:48 AM CDT) Pathologist [facility] VITAMIN D 25 HYDROXY S/P/B 49 30 - 100 NG/ML 07/24/2024 11:09 AM CDT [facility] Comment: ? INTERPRETATION ? DEFICIENT ??<20 ? INSUFFICIENT 20-29 ?SUFFICIENT 30-100 07/24/2024 9:48 AM CDT Il[facility] Final Result Performing Organization Address City/[facility] Co de Phone Number [facility] [address] [place] [address], [place] [phone] * THYROID STIM HORMONE TSH (07/24/2024 9:48 AM CDT) TSH 1.555 0.358 - 3.74 uIU/ML 07/24/2024 10:58 AM CDT [facility] Comment: HIGH DOSES OF BIOTIN MAY INTERFERE WITH THIS TEST RESULT. CORRELATION TO CLINICAL HISTORY AND PRESENTATION RECOMMENDED. 07/24/2024 9:48 AM CDT [facility] Final Result Performing Organization Address [facility] Co de Phone Number [facility] [address] [place] [address], [place] [phone] documented in this encounter Visit Diagnoses Diagnosis [...] as of this encounter Care Teams Senior Games Technician Relationship Specialty [place] [address] [place] [address] PCP - General Physician Physician Scientist Medical 01/06/24 documented as of this encounter
--- OUTSIDE RECORDS SUMMARY | 2024-11-02 09:10 | XMS_ITS | Encounter Summary ---
Author Organization [facility] Address [address] [place] [address]. [place], [place] [address] [place] [address] Care Team Providers Care Cardiology Rn Name Role Phone Ilir Nelson Primary Care Provider [phone] Encounter Details Date Type Department Care Team [...] on file Legal Sex Male 9:58 PM ACUPRESSURIST Gender Identity Not on file Sexual Orientation Not on file documented as of this encounter Functional Status * RETIRED Are you deaf or do you have serious difficulty hearing Answer Date of Assessment Author Status No 10/02/2021 12:38 PM ACUPRESSURIST Acti ve * RETIRED Are you blind or do you have serious difficulty seeing, even when wearing glasses? Answer Date of Assessment Author Status No 10/02/2021 12:38 PM ACUPRESSURIST Acti ve * Do you have serious difficulty walking or climbing stairs? Answer Date of Assessment Author Status No 10/02/2021 12:38 PM ACUPRESSURIST Annette Jorge R N Active * Do you have difficulty dressing or bathing? Answer Date of Assessment Author Status No 10/02/2021 12:38 PM ACUPRESSURIST Annette Jorge R N Active * Because of a physical, mental, or emotional condition, do you have difficulty doing errands alone such as visiting a doctor's office or shopping? Answer Date of Assessment Author Status No 10/02/2021 12:38 PM ACUPRESSURIST Annette Jorge R N Active documented as of this encounter Mental Status * Because of a physical, mental, or emotional condition, do you have serious difficulty concentrating, remembering, or making decisions? Answer Entry Date Author Status No 10/02/2021 12:38 PM ACUPRESSURIST Annette Jorge R N Active documented in this encounter Plan of Treatment Upcoming Encounters Date Type Department Care Team (Late st Contact Info) Description 01/27/2025 7:00 AM CDT Office Visit [facility] Family & Internal Medicine [facility] [address] [place] [address] [place] Nelson [place] [address] [place] [phone] 10/22/2025 9:15 AM ACUPRESSURIST Office Visit [facility] [phone] Mily Gan MD [address] [address] documented as of this encounter Goals Goal [...] documented as of this encounter Care Teams Cardiology Rn Relationship Specialty [place] [address] [place] [address] PCP - General Physician Stock Receiver Medical 01/06/24 documented as of this encounter
--- OUTSIDE RECORDS SUMMARY | 2024-11-02 09:10 | XMS_ITS | Encounter Summary ---
Author Organization [facility] Address [address] [place] [address]. [place], [place] [address] [place] [address] Care Team Providers Care Dog Food Shredder Operator Name Role Phone Ilir Nelson Primary Care Provider [phone] Encounter Details Date Type Department Care Team [...] on file Legal Sex Male 9:58 PM ENFORCEMENT MANAGER Gender Identity Not on file Sexual Orientation Not on file documented as of this encounter Functional Status * RETIRED Are you deaf or do you have serious difficulty hearing Answer Date of Assessment Author Status No 10/02/2021 12:38 PM ENFORCEMENT MANAGER Acti ve * RETIRED Are you blind or do you have serious difficulty seeing, even when wearing glasses? Answer Date of Assessment Author Status No 10/02/2021 12:38 PM ENFORCEMENT MANAGER Acti ve * Do you have serious difficulty walking or climbing stairs? Answer Date of Assessment Author Status No 10/02/2021 12:38 PM ENFORCEMENT MANAGER Annette Jorge R N Active * Do you have difficulty dressing or bathing? Answer Date of Assessment Author Status No 10/02/2021 12:38 PM ENFORCEMENT MANAGER Annette Jorge R N Active * Because of a physical, mental, or emotional condition, do you have difficulty doing errands alone such as visiting a doctor's office or shopping? Answer Date of Assessment Author Status No 10/02/2021 12:38 PM ENFORCEMENT MANAGER Annette Jorge R N Active documented as of this encounter Mental Status * Because of a physical, mental, or emotional condition, do you have serious difficulty concentrating, remembering, or making decisions? Answer Entry Date Author Status No 10/02/2021 12:38 PM ENFORCEMENT MANAGER Annette Jorge R N Active documented in this encounter Plan of Treatment Upcoming Encounters Date Type Department Care Team (Late st Contact Info) Description 01/27/2025 7:00 AM CDT Office Visit [facility] Family & Internal Medicine [facility] [address] [place] [address] Ilir Nelson [place] [address] [place] [phone] 10/22/2025 9:15 AM ENFORCEMENT MANAGER Office Visit [facility] [phone] Mily Gan MD [address] [place] [address] [address] documented as of this encounter Goals Goal [...] documented as of this encounter Care Teams Dog Food Shredder Operator Relationship Specialty [place] [address] [place] [address] PCP - General Physician Spring Encaser [facility] 01/06/24 documented as of this encounter
--- OUTSIDE RECORDS SUMMARY | 2024-11-02 09:10 | XMS_ITS | Encounter Summary ---
Author Organization [facility] Address [address] [place] [address]. [place] [address] [place] [address] Care Team Providers Care Semiconductors Wafer Breaker Name Role Phone Ilir Nelson Primary Care Provider [phone] Reason for Visit * Reason Onset Date Comments Medication 07/29/2024 Encounter Details Date Type Department Care Team (Late st Contact Info) Description 07/29/2024 Telephone [facility] Family & Internal Medicine [facility] [address] [place] [address] Ilir Nelson [place] [id number] [place] [address] Medication Social History Tobacco Use Types [...] on file Legal Sex Male 9:58 PM CARRY OUT CLERK Gender Identity Not on file Sexual Orientation Not on file documented as of this encounter Functional Status * RETIRED Are you deaf or do you have serious difficulty hearing Answer Date of Assessment Author Status No 10/02/2021 12:38 PM CARRY OUT CLERK Acti ve * RETIRED Are you blind or do you have serious difficulty seeing, even when wearing glasses? Answer Date of Assessment Author Status No 10/02/2021 12:38 PM CARRY OUT CLERK Acti ve * Do you have serious difficulty walking or climbing stairs? Answer Date of Assessment Author Status No 10/02/2021 12:38 PM CARRY OUT CLERK Annette Jorge, R N Active * Do you have difficulty dressing or bathing? Answer Date of Assessment Author Status No 10/02/2021 12:38 PM CARRY OUT CLERK Annette Jorge, R N Active * Because of a physical, mental, or emotional condition, do you have difficulty doing errands alone such as visiting a doctor's office or shopping? Answer Date of Assessment Author Status No 10/02/2021 12:38 PM CARRY OUT CLERK Annette Jorge, R N Active documented as of this encounter Mental Status * Because of a physical, mental, or emotional condition, do you have serious difficulty concentrating, remembering, or making decisions? Answer Entry Date Author Status No 10/02/2021 12:38 PM CARRY OUT CLERK Annette Jorge, R N Active documented in [...] CDT Natan juarez states he went to diamond picker medication that was prescribed to day [...] Family & Internal Medicine [facility] [address] [place] [phone] [place] [address] [place] [address] 10/22/2025 9:15 AM CARRY OUT CLERK Office Visit [facility] [address] [phone] Mily Gan MD [place] [place], [place] [phone] documented as of this encounter Goals Goal [...] documented as of this encounter Care Teams Semiconductors Wafer Breaker Relationship Specialty [place] [address] [place] [address] PCP - General Physician Banking Representative Medical 01/06/24 documented as of this encounter
--- OUTSIDE RECORDS SUMMARY | 2024-11-02 09:10 | XMS_ITS | Clinical Summary ---
Author Organization [facility] Address [address] [place] [address]. 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 Tobacco abuse 07/25/2023 Left shoulder pain 01/16/2023 Rotator cuff tear, left 01/16/2023 S/P laparoscopic procedure 09/22/2021 Status post Neel procedure ([facility]) 04/02/2021 Bowel perforation ([facility]) 03/18/2021 Perforated diverticulum 03/18/2021 Pharyngoesophageal dysphagia 02/25/2021 Overview (02/25/2021): Added automatically from request for surgery [id number] Cervical stenosis of spinal canal 10/02/2018 H/O nicotine dependence 09/21/2018 RANDY on CPAP 10/16/2015 Hyperlipidemia 04/15/2013 Encounters Date Type Department Care Team Description 10/09/2024 9:45 AM SENIOR CARE PROVIDER Office Visit [facility] [address] [facility] [place] [address] Savannah Thomason PA-C Follow Up (PAF) 10/09/2024 [...] 50 MCG/0.5 ML ([facility]) 08/08/2023 MODERNA COVID-19 (TANK TRUCK ENGINE MECHANIC ROBBI ROSINA), MRNA, LNP-S, PF, 50 MCG/ [...] file Legal Sex Male 9:58 PM SENIOR CARE PROVIDER Gender Identity Not on file Sexual Orientation Not on file Last Filed Vital Signs Vital Sign Reading Time Taken Comments Blood Pressure 128/70 10/09/2024 9:43 AM SENIOR CARE PROVIDER Pulse 70 10/09/2024 9:43 AM SENIOR CARE PROVIDER Temperature 36.5 ??C (97.7 ??F) 07/29/2024 7:01 AM CD T Respiratory Rate 16 07/29/2024 7:01 AM CDT Oxygen Saturation 98% 10/09/2024 9:43 AM SENIOR CARE PROVIDER Inhaled Oxygen Concentration - - Weight 77.7 kg (171 lb 3.2 oz) 10/09/2024 9:43 A M SENIOR CARE PROVIDER Height 170.2 cm (5' 7 ) 10/09/2024 9:43 AM SENIOR CARE PROVIDER Body Mass Index 26.81 10/09/2024 9:43 AM SENIOR CARE PROVIDER Plan of Treatment Upcoming Encounters Date Type Department Care Team (Late st Contact Info) Description 01/27/2025 7:00 AM CDT Office Visit [facility] Medical [facility] Family & Internal Medicine [facility] [address] [place] [address] [place] [address] [place] [address] 10/22/2025 9:15 AM SENIOR CARE PROVIDER Office Visit [facility] [phone] [facility]. [address] [phone] Health Maintenance Due Date Last Done Comments [...] HEPATITIS C ANTIBODY Routine 01/06/2021 7:11 AM SENIOR CARE PROVIDER Need for hepatitis C screening test from Last 3 Months or Most Recently Relevant to Health Maintenance Results * COLONOSCOPY (08/13/2021) us Documents Scanned SCANNING Final Result [facility] ONBASE * CT ABD+PEL W IV CON [...] with Lauri Alanis in the emergency department [id number]. Referred By: LAURI ALANIS Interpreted By: Norman Smallwood, 03/18/2021 11:08 AM Lauri Alanis MD,PHD CT Edited Res ult - Final * HEPATITIS C ANTIBODY (01/06/2021 7:11 AM SENIOR CARE PROVIDER) HEPATITIS C AB NON-REACTI VE NON-REACTI VE 01/06/2021 3:24 PM SENIOR CARE PROVIDER [facility] 01/06/2021 7:11 AM SENIOR CARE PROVIDER Lorie Chan MD LABORATORY Final Result [facility] [address] [place] [address], [place] [phone] from Last 3 Months or Most Recently [...] 1:52 PM 03/23/2021 3:23 PM Care Teams Range Operator Relationship Specialty [place] [address] [place] [address] PCP - General Physician Bowling Alley Mechanic Medical 01/06/24
--- OUTSIDE RECORDS SUMMARY | 2024-11-02 09:10 | XMS_ITS | Encounter Summary ---
Author Organization [facility] Address [address] [place] [address]. [place], [place] [address] [place] [address] Care Team Providers Care Drier Operator Name Role Phone Ilir Nelson Primary Care Provider [phone] Encounter Details Date Type Department Care Team [...] on file Legal Sex Male 9:58 PM STITCH BONDING MACHINE OPERATOR Gender Identity Not on file Sexual Orientation Not on file documented as of this encounter Functional Status * RETIRED Are you deaf or do you have serious difficulty hearing Answer Date of Assessment Author Status No 10/02/2021 12:38 PM STITCH BONDING MACHINE OPERATOR Acti ve * RETIRED Are you blind or do you have serious difficulty seeing, even when wearing glasses? Answer Date of Assessment Author Status No 10/02/2021 12:38 PM STITCH BONDING MACHINE OPERATOR Acti ve * Do you have serious difficulty walking or climbing stairs? Answer Date of Assessment Author Status No 10/02/2021 12:38 PM STITCH BONDING MACHINE OPERATOR Annette Jorge R N Active * Do you have difficulty dressing or bathing? Answer Date of Assessment Author Status No 10/02/2021 12:38 PM STITCH BONDING MACHINE OPERATOR Annette Jorge R N Active * Because of a physical, mental, or emotional condition, do you have difficulty doing errands alone such as visiting a doctor's office or shopping? Answer Date of Assessment Author Status No 10/02/2021 12:38 PM STITCH BONDING MACHINE OPERATOR Annette Jorge R N Active documented as of this encounter Mental Status * Because of a physical, mental, or emotional condition, do you have serious difficulty concentrating, remembering, or making decisions? Answer Entry Date Author Status No 10/02/2021 12:38 PM STITCH BONDING MACHINE OPERATOR Annette Jorge R N Active documented in this encounter Plan of Treatment Upcoming Encounters Date Type Department Care Team (Late st Contact Info) Description 01/27/2025 7:00 AM CDT Office Visit [facility] Family & Internal Medicine [facility] [address] [place] [address] [place] [address] [place] [phone] 10/22/2025 9:15 AM STITCH BONDING MACHINE OPERATOR Office Visit [facility] [address] Mily Gan MD [address] [address] documented as of this encounter Goals Goal [...] documented as of this encounter Care Teams Drier Operator Relationship Specialty [place] [address] [place] [address] PCP - General Physician Hairspring Vibrator Medical 01/06/24 documented as of this encounter
--- OUTSIDE RECORDS SUMMARY | 2024-11-02 09:10 | XMS_ITS | Encounter Summary ---
Author Organization [facility] Address [address] [place] [address]. [place], [place] [address] [place] [address] Care Team Providers Care Supervisor Dried Yeast Name Role Phone Ilir Nelson Primary Care Provider [phone] Encounter Details Date Type Department Care Team (Latest Contact Info) Description 07/26/2024 7:52 AM CDT - 07/26/2024 11:59 PM [facility] Hospital Encounter [facility] [address] [place], [place] [phone] [place] [address] [place] [address] Discharge Disposition: Home or Self Care (Routine [...] on file Legal Sex Male 9:58 PM HARNESSMAKER APPRENTICE Gender Identity Not on file Sexual Orientation Not on file documented as of this encounter Functional Status * RETIRED Are you deaf or do you have serious difficulty hearing Answer Date of Assessment Author Status No 10/02/2021 12:38 PM HARNESSMAKER APPRENTICE Acti ve * RETIRED Are you blind or do you have serious difficulty seeing, even when wearing glasses? Answer Date of Assessment Author Status No 10/02/2021 12:38 PM HARNESSMAKER APPRENTICE Acti ve * Do you have serious difficulty walking or climbing stairs? Answer Date of Assessment Author Status No 10/02/2021 12:38 PM HARNESSMAKER APPRENTICE Annette Jorge R N Active * Do you have difficulty dressing or bathing? Answer Date of Assessment Author Status No 10/02/2021 12:38 PM HARNESSMAKER APPRENTICE Annette Jorge R N Active * Because of a physical, mental, or emotional condition, do you have difficulty doing errands alone such as visiting a doctor's office or shopping? Answer Date of Assessment Author Status No 10/02/2021 12:38 PM HARNESSMAKER APPRENTICE Annette Jorge R N Active documented as of this encounter Mental Status * Because of a physical, mental, or emotional condition, do you have serious difficulty concentrating, remembering, or making decisions? Answer Entry Date Author Status No 10/02/2021 12:38 PM HARNESSMAKER APPRENTICE Annette Jorge R N Active documented in [...] & Internal Medicine [facility] [address] [place] [address] Ilir Nelson [place] [address] [place] [phone] 10/22/2025 9:15 AM HARNESSMAKER APPRENTICE Office Visit [facility] [phone] Mily Gan MD [address] [address] documented as of this encounter Goals Goal [...] 0.90 <4.00 NG/ML 07/26/2024 10:11 AM CDT [facility] Comment: Test was performed using the Siemens method. ??Results obtained with other assay methods or kits cannot be used interchangeably with results obtained by the Siemens method. 07/26/2024 8:20 AM CDT us [facility] Final Result [facility] [address] [place] [address], documented in this encounter Visit Diagnoses Diagnosis Special screening for malignant neoplasm of prostate documented in this encounter Additional Health Concerns Assessment Noted Time PHQ-9 Depression Total Score: 0 01/24/20 23 8:04 AM CDT documented as of this encounter Care Teams Supervisor Dried Yeast Relationship Specialty [place] [address] [place] [address] PCP - General Physician Club Steward Medical 01/06/24 documented as of this encounter
--- OUTSIDE RECORDS SUMMARY | 2024-11-02 09:10 | XMS_ITS | Encounter Summary ---
Author Organization [facility] Address [address] [place] [address]. [place], [place] [address] [place] [address] Care Team Providers Care Waitstaff Name Role Phone Ilir Nelson Primary Care Provider [phone] Reason for Visit * Reason Comments Follow Up Transfer care6 month follow up Hypertension Hyperlipidemia Refill Request ATORVASTATIN Encounter Details Date Type Department Care Team (Late st Contact Info) Description 01/23/2024 8:00 AM CDT Office Visit [facility] Family & Internal Medicine [facility] [address] [place] [address] [place] [address] [facility], [address] [place], [place] [phone] [place] [address] [place], [place] [phone] Follow Up (Transfer care/6 month follow up); [...] on file Legal Sex Male 9:58 PM PERCUSSION WELDING MACHINE OPERATOR Gender Identity Not on file [...] Assessment Author Status No 10/02/2021 12:38 PM PERCUSSION WELDING MACHINE OPERATOR Acti ve * RETIRED Are you blind or do you have serious difficulty seeing, even when wearing glasses? Answer Date of Assessment Author Status No 10/02/2021 12:38 PM PERCUSSION WELDING MACHINE OPERATOR Acti ve * Do you have serious difficulty walking or climbing stairs? Answer Date of Assessment Author Status No 10/02/2021 12:38 PM PERCUSSION WELDING MACHINE OPERATOR Annette Jorge R N Active * Do you have difficulty dressing or bathing? Answer Date of Assessment Author Status No 10/02/2021 12:38 PM PERCUSSION WELDING MACHINE OPERATOR Annette Jorge R N Active [...] Siemens method. HPI: 68-year-old male transitioning from [place] to [place]. 6-month follow-up. 1. Hypertension: On metoprolol ER [...] MD at [facility] OR COLOSTOMY reversable HERNIA REPAIR Right [facility] HERNIA REPAIR Left [facility] JOINT REPLACEMENT NECK/CHEST PROCEDURE UNLISTED Right [facility], re-built right side of neck. REMOVAL OF SPERM DUCT(S) SMALL INTESTINE SURGERY bowel rupture TOTAL KNEE ARTHROPLASTY Bilateral ZANA Partial KR, done @ [facility] Social History Tobacco Use Smoking status: [...] at the end per patient Hypertension Mother Lewis Throat cancer Father Jose Heart Disease Father Jose Cancer Father [place] Lung Cancer Brother COPD Brother Jacinto Cancer [...] Description 01/27/2025 7:00 AM CDT Office Visit [facility] Family & Internal Medicine [facility] [address] [place] [address] Ilir Nelson PA [address] [place] [address] 10/22/2025 9:15 AM PERCUSSION WELDING MACHINE OPERATOR Office Visit [facility] [address] Mily Gan MD [address] [address] documented as of this encounter Goals Goal Patient Goal Type Associated Problems Recent Progress Patient-Stated? Author Establish Plan for Symptom Monitoring General Jesi Ye, RN Monitor - demonstrates appropriate technique of care of indwelling urinary catheter and new ostomy General Jesi Ye RN Patient will return to prior living situation and remain independent in ADLs upon discharge from [facility] Aliya Sotelo RN documented as of this [...] documented as of this encounter Care Teams Waitstaff Relationship Specialty [place] [address] [place] [address] PCP - General Physician Sales Support Assistant Medical 01/06/24 documented as of this encounter
--- OUTSIDE RECORDS SUMMARY | 2024-11-02 09:10 | XMS_ITS | Encounter Summary ---
Author Organization [facility] Address [address] [place] [address]. [place], [place] [address] [place] [address] Care Team Providers Care Passenger Car Inspector Name Role Phone Ilir Nelson Primary Care Provider [phone] Encounter Details Date Type Department Care Team (Latest Contact Info) Description 01/23/2024 Travel Social History Tobacco Use Types Packs/Day [...] on file Legal Sex Male 9:58 PM COMMUNICATIONS COORDINATOR Gender Identity Not on file Sexual Orientation Not on file documented as of this encounter Functional Status * RETIRED Are you deaf or do you have serious difficulty hearing Answer Date of Assessment Author Status No 10/02/2021 12:38 PM COMMUNICATIONS COORDINATOR Acti ve * RETIRED Are you blind or do you have serious difficulty seeing, even when wearing glasses? Answer Date of Assessment Author Status No 10/02/2021 12:38 PM COMMUNICATIONS COORDINATOR Acti ve * Do you have serious difficulty walking or climbing stairs? Answer Date of Assessment Author Status No 10/02/2021 12:38 PM COMMUNICATIONS COORDINATOR Annette Jorge R N Active * Do you have difficulty dressing or bathing? Answer Date of Assessment Author Status No 10/02/2021 12:38 PM COMMUNICATIONS COORDINATOR Annette Jorge R N Active * Because of a physical, mental, or emotional condition, do you have difficulty doing errands alone such as visiting a doctor's office or shopping? Answer Date of Assessment Author Status No 10/02/2021 12:38 PM COMMUNICATIONS COORDINATOR Annette Jorge R N Active documented as of this encounter Mental Status * Because of a physical, mental, or emotional condition, do you have serious difficulty concentrating, remembering, or making decisions? Answer Entry Date Author Status No 10/02/2021 12:38 PM COMMUNICATIONS COORDINATOR Annette Jorge R N Active documented in this encounter Plan of Treatment Upcoming Encounters Date Type Department Care Team (Late st Contact Info) Description 01/27/2025 7:00 AM CDT Office Visit [facility] Family & Internal Medicine [facility] [address] [place] [address] Ilir Nelson [place] [address] [place] [phone] 10/22/2025 9:15 AM COMMUNICATIONS COORDINATOR Office Visit [facility] [address] Mily Gan MD [address] [address] documented as of this encounter Goals Goal [...] documented as of this encounter Care Teams Passenger Car Inspector Relationship Specialty [place] [address] [place] [address] PCP - General Physician Satellite Instruction Facilitator Medical 01/06/24 documented as of this encounter
--- OUTSIDE RECORDS SUMMARY | 2024-11-02 09:10 | XMS_ITS | Encounter Summary ---
Author Organization [facility] Address [address] [place] [address]. [place], [place] [address] [place] [address] Care Team Providers Care Power Hair Clipper Name Role Phone Ilir Nelson Primary Care Provider [phone] Encounter Details Date Type Department Care Team [...] on file Legal Sex Male 9:58 PM BEAN SNIPPER Gender Identity Not on file Sexual Orientation Not on file documented as of this encounter Functional Status * RETIRED Are you deaf or do you have serious difficulty hearing Answer Date of Assessment Author Status No 10/02/2021 12:38 PM BEAN SNIPPER Acti ve * RETIRED Are you blind or do you have serious difficulty seeing, even when wearing glasses? Answer Date of Assessment Author Status No 10/02/2021 12:38 PM BEAN SNIPPER Acti ve * Do you have serious difficulty walking or climbing stairs? Answer Date of Assessment Author Status No 10/02/2021 12:38 PM BEAN SNIPPER Annette Jorge R N Active * Do you have difficulty dressing or bathing? Answer Date of Assessment Author Status No 10/02/2021 12:38 PM BEAN SNIPPER Annette Jorge R N Active * Because of a physical, mental, or emotional condition, do you have difficulty doing errands alone such as visiting a doctor's office or shopping? Answer Date of Assessment Author Status No 10/02/2021 12:38 PM BEAN SNIPPER Annette Jorge R N Active documented as of this encounter Mental Status * Because of a physical, mental, or emotional condition, do you have serious difficulty concentrating, remembering, or making decisions? Answer Entry Date Author Status No 10/02/2021 12:38 PM BEAN SNIPPER Annette Jorge R N Active documented in this encounter Plan of Treatment Upcoming Encounters Date Type Department Care Team (Late st Contact Info) Description 01/27/2025 7:00 AM CDT Office Visit [facility] Group Family & Internal Medicine [facility] [address] [place] [address] [place] [address] [place], [place] [phone] 10/22/2025 9:15 AM BEAN SNIPPER Office Visit [facility] [address] Mily Gan MD [address] [phone] documented as of this encounter Goals Goal [...] documented as of this encounter Care Teams Power Hair Clipper Relationship Specialty [place] [address] [place] [address] PCP - General Physician Washing Machine Loader And Puller Medical 01/06/24 documented as of this encounter
--- OUTSIDE RECORDS SUMMARY | 2024-11-02 09:10 | XMS_ITS | Encounter Summary ---
Author Organization [facility] Address [address] [place] [address]. [place] [address] [place] [address] Care Team Providers Care Telephone Claims Representative Name Role Phone Ilir Nelson Primary Care Provider [phone] Reason for Visit * Reason Comments Follow Up PAF Encounter Details Date Type Department Care Team (Late st Contact Info) Description 10/09/2024 9:45 AM DIRECTOR PHYSICAL THERAPY Office Visit [facility] [address] Savannah Thomason PA-C [address] [address] Follow Up (PAF) Social History [...] file Legal Sex Male 9:58 PM DIRECTOR PHYSICAL THERAPY Gender Identity Not on file Sexual Orientation Not on file documented as of this encounter Last Filed Vital Signs Vital Sign Reading Time Taken Comments Blood Pressure 128/70 10/09/2024 9:43 AM DIRECTOR PHYSICAL THERAPY Pulse 70 10/09/2024 9:43 AM DIRECTOR PHYSICAL THERAPY Temperature - - Respiratory Rate - - Oxygen Saturation 98% 10/09/2024 9:43 AM DIRECTOR PHYSICAL THERAPY Inhaled Oxygen Concentration - - Weight 77.7 kg (171 lb 3.2 oz) 10/09/2024 9:43 A M DIRECTOR PHYSICAL THERAPY Height 170.2 cm (5' 7 ) 10/09/2024 9:43 AM DIRECTOR PHYSICAL THERAPY Body Mass Index 26.81 10/09/2024 9:43 AM DIRECTOR PHYSICAL THERAPY documented in this encounter Functional Status * RETIRED Are you deaf or do you have serious difficulty hearing Answer Date of Assessment Author Status No 10/02/2021 12:38 PM DIRECTOR PHYSICAL THERAPY Acti ve * RETIRED Are you blind or do you have serious difficulty seeing, even when wearing glasses? Answer Date of Assessment Author Status No 10/02/2021 12:38 PM DIRECTOR PHYSICAL THERAPY Acti ve * Do you have serious difficulty walking or climbing stairs? Answer Date of Assessment Author Status No 10/02/2021 12:38 PM DIRECTOR PHYSICAL THERAPY Annette Jorge R N Active * Do you have difficulty dressing or bathing? Answer Date of Assessment Author Status No 10/02/2021 12:38 PM DIRECTOR PHYSICAL THERAPY Annette Jorge R N Active * Because of a physical, mental, or emotional condition, do you have difficulty doing errands alone such as visiting a doctor's office or shopping? Answer Date of Assessment Author Status No 10/02/2021 12:38 PM DIRECTOR PHYSICAL THERAPY Annette Jorge R N Active documented as of this encounter Mental Status * Because of a physical, mental, or emotional condition, do you have serious difficulty concentrating, remembering, or making decisions? Answer Entry Date Author Status No 10/02/2021 12:38 PM DIRECTOR PHYSICAL THERAPY Annette Jorge R N Active documented in [...] performed by Federico Mayer MD at [facility] OR COLOSTOMY reversable HERNIA REPAIR Right [facility] HERNIA REPAIR Left [facility] JOINT REPLACEMENT NECK/CHEST PROCEDURE UNLISTED Right [facility], re-built right side of neck. REMOVAL OF SPERM DUCT(S) SMALL INTESTINE SURGERY bowel rupture TOTAL KNEE ARTHROPLASTY Bilateral ZANA Partial KR, done @ [facility] Social History Tobacco Use Smoking status: Every [...] Age of Onset Arthritis in Adults Mother Senatobia Dementia Mother Senatobia at the end per patient Hypertension Mother Senatobia Throat cancer Father Jose Heart Disease Father [place]riot Cancer Father Jose Lung Cancer Brother COPD [...] Comments: Diagnoses/Impression: 1. PAF (paroxysmal atrial fibrillation) ([facility]) 2. RANDY on CPAP 3. Mixed hyperlipidemia 4. Primary hypertension Referring Provider: No ref. provider found PCP: GERI ARREGUIN CTOR PHYSICAL THERAPY documented in this encounter Plan of Treatment Upcoming Encounters Date Type Department Care Team (Late st Contact Info) Description 01/27/2025 7:00 AM CDT Office Visit [facility] Family & Internal Medicine [address] [address] [place] [address] [place] [address] 10/22/2025 9:15 AM DIRECTOR PHYSICAL THERAPY Office Visit [facility] [address] Mily Gan MD [facility] [address] [place] [address] documented as of this encounter Goals Goal [...] Visit Diagnoses Diagnosis PAF (paroxysmal atrial fibrillation) ([facility])- Primary Atrial fibrillation RANDY on CPAP Obstructive sleep apnea (adult) (pediatric) Mixed hyperlipidemia Primary hypertension Unspecified essential hypertension documented in this encounter Additional Health Concerns Assessment Noted Time PHQ-9 Depression Total Score: 1 07/29/20 24 7:03 AM CDT documented as of this encounter Care Teams Telephone Claims Representative Relationship Specialty [place] [address] [place] [address] PCP - General Physician Community Health Navigator Medical 01/06/24 documented as of this encounter
--- OUTSIDE RECORDS SUMMARY | 2024-11-02 09:10 | XMS_ITS | Encounter Summary ---
Author Organization [facility] Address [address] [place] [address]. [place], [place] [address] [place] [address] Care Team Providers Care Product Promoter Retail Pet Name Role Phone Ilir Nelson Primary Care Provider [phone] Reason for Visit * Reason Onset Date Comments Lab Order 07/26/2024 Encounter Details Date Type Department Care Team (Late st Contact Info) Description 07/26/2024 Telephone [facility] Family & Internal Medicine [facility] [address] [place] [address] Ilir Nelson PA [address] [place] [address] Lab Order Social History Tobacco Use [...] on file Legal Sex Male 9:58 PM HAT AND CAP SEWER Gender Identity Not on file Sexual Orientation Not on file documented as of this encounter Functional Status * RETIRED Are you deaf or do you have serious difficulty hearing Answer Date of Assessment Author Status No 10/02/2021 12:38 PM HAT AND CAP SEWER Acti ve * RETIRED Are you blind or do you have serious difficulty seeing, even when wearing glasses? Answer Date of Assessment Author Status No 10/02/2021 12:38 PM HAT AND CAP SEWER Acti ve * Do you have serious difficulty walking or climbing stairs? Answer Date of Assessment Author Status No 10/02/2021 12:38 PM HAT AND CAP SEWER Annette Jorge, R N Active * Do you have difficulty dressing or bathing? Answer Date of Assessment Author Status No 10/02/2021 12:38 PM HAT AND CAP SEWER Annette Jorge, R N Active * Because of a physical, mental, or emotional condition, do you have difficulty doing errands alone such as visiting a doctor's office or shopping? Answer Date of Assessment Author Status No 10/02/2021 12:38 PM HAT AND CAP SEWER Annette Jorge, R N Active documented as of this encounter Mental Status * Because of a physical, mental, or emotional condition, do you have serious difficulty concentrating, remembering, or making decisions? Answer Entry Date Author Status No 10/02/2021 12:38 PM HAT AND CAP SEWER Annette Jorge, R N Active documented in [...] HEALTH Medical Group Family & Internal Medicine [facility] [address] [place] [address] [place] Nelson [place] [address] [place] [address] 10/22/2025 9:15 AM HAT AND CAP SEWER Office Visit [facility] [phone] [place] [address] Mily Gan MD [facility] [address] [place] [address] documented as of this encounter Goals Goal [...] documented as of this encounter Care Teams Product Promoter Retail Pet Relationship Specialty [place] [address] [place] [address] PCP - General Physician [employer] Solutions Architect Medical 01/06/24 documented as of this encounter
--- OUTSIDE RECORDS SUMMARY | 2024-11-02 09:10 | XMS_ITS | Encounter Summary ---
Author Organization [facility] Address [address] [place] [address]. [place], [place] [address] [place] [address] Care Team Providers Care Senior Compensation Consultant Name Role Phone Ilir Nelson Primary Care Provider [phone] Encounter Details Date Type Department Care Team [...] on file Legal Sex Male 9:58 PM PLAYROOM ATTENDANT Gender Identity Not on file Sexual Orientation Not on file documented as of this encounter Functional Status * RETIRED Are you deaf or do you have serious difficulty hearing Answer Date of Assessment Author Status No 10/02/2021 12:38 PM PLAYROOM ATTENDANT Acti ve * RETIRED Are you blind or do you have serious difficulty seeing, even when wearing glasses? Answer Date of Assessment Author Status No 10/02/2021 12:38 PM PLAYROOM ATTENDANT Acti ve * Do you have serious difficulty walking or climbing stairs? Answer Date of Assessment Author Status No 10/02/2021 12:38 PM PLAYROOM ATTENDANT Annette Jorge R N Active * Do you have difficulty dressing or bathing? Answer Date of Assessment Author Status No 10/02/2021 12:38 PM PLAYROOM ATTENDANT Annette Jorge R N Active * Because of a physical, mental, or emotional condition, do you have difficulty doing errands alone such as visiting a doctor's office or shopping? Answer Date of Assessment Author Status No 10/02/2021 12:38 PM PLAYROOM ATTENDANT Annette Jorge R N Active documented as of this encounter Mental Status * Because of a physical, mental, or emotional condition, do you have serious difficulty concentrating, remembering, or making decisions? Answer Entry Date Author Status No 10/02/2021 12:38 PM PLAYROOM ATTENDANT Annette Jorge R N Active documented in this encounter Plan of Treatment Upcoming Encounters Date Type Department Care Team (Late st Contact Info) Description 01/27/2025 7:00 AM CDT Office Visit [facility] Family & Internal Medicine [facility] [address] [place] [address] [place] [address] [place], [place] [id number] 10/22/2025 9:15 AM PLAYROOM ATTENDANT Office Visit [facility] [address] Mily Gan MD [address] [phone] documented as of this encounter Goals Goal [...] as of this encounter Care Teams Senior Compensation Consultant Relationship Specialty [place] [address] [place] [address] PCP - General Physician Sql Data Architect Medical 01/06/24 documented as of this encounter
--- OUTSIDE RECORDS SUMMARY | 2024-11-02 09:10 | XMS_ITS | Encounter Summary ---
Author Organization [facility] Address [address] [place] [address]. [place], [place] [address] [place] [address] Care Team Providers Care Customer Contact Specialist Name Role Phone Ilir Nelson Primary Care Provider [phone] Encounter Details Date Type Department Care Team (Late st Contact Info) Description 07/26/2024 Orders Only [facility] [address] [place], [place] [id number] [place] [address] [place], [place] [phone] Social History Tobacco Use Types Packs/Day Years [...] on file Legal Sex Male 9:58 PM CEO ZIFF DAVIS Gender Identity Not on file Sexual Orientation Not on file documented as of this encounter Functional Status * RETIRED Are you deaf or do you have serious difficulty hearing Answer Date of Assessment Author Status No 10/02/2021 12:38 PM CEO ZIFF DAVIS Acti ve * RETIRED Are you blind or do you have serious difficulty seeing, even when wearing glasses? Answer Date of Assessment Author Status No 10/02/2021 12:38 PM CEO ZIFF DAVIS Acti ve * Do you have serious difficulty walking or climbing stairs? Answer Date of Assessment Author Status No 10/02/2021 12:38 PM CEO ZIFF DAVIS Annette Jorge R N Active * Do you have difficulty dressing or bathing? Answer Date of Assessment Author Status No 10/02/2021 12:38 PM CEO ZIFF DAVIS Annette Jorge R N Active * Because of a physical, mental, or emotional condition, do you have difficulty doing errands alone such as visiting a doctor's office or shopping? Answer Date of Assessment Author Status No 10/02/2021 12:38 PM CEO ZIFF DAVIS Annette Jorge R N Active documented as of this encounter Mental Status * Because of a physical, mental, or emotional condition, do you have serious difficulty concentrating, remembering, or making decisions? Answer Entry Date Author Status No 10/02/2021 12:38 PM CEO ZIFF DAVIS Annette Jorge R N Active documented in this encounter Plan of Treatment Upcoming Encounters Date Type Department Care Team (Late st Contact Info) Description 01/27/2025 7:00 AM CDT Office Visit [facility] Medical [facility] Family & Internal Medicine [facility] [address] [place] [address] [place] [address] [place], [place] [phone] 10/22/2025 9:15 AM CEO ZIFF DAVIS Office Visit [facility] [address] Mily Gan MD [address] [address] documented as of this encounter Goals Goal [...] 0.90 <4.00 NG/ML 07/26/2024 10:11 AM CDT [facility] Comment: Test was performed using the Siemens method. ??Results obtained with other assay methods or kits cannot be used interchangeably with results obtained by the Siemens method. 07/26/2024 8:20 AM CDT [facility] Final Result Performing Organization Address City/State/[facility] Co de Phone Number [facility] [address] [place] [address], documented in this encounter Visit Diagnoses Diagnosis Special screening for malignant neoplasm of prostate- Primary documented in this encounter Additional Health Concerns Assessment Noted Time PHQ-9 Depression Total Score: 0 01/24/20 23 8:04 AM CDT documented as of this encounter Care Teams Customer Contact Specialist Relationship Specialty [place] [address] [place] [address] PCP - General Physician X Ray Equipment Mechanic Medical 01/06/24 documented as of this encounter
--- OUTSIDE RECORDS SUMMARY | 2024-11-02 09:10 | XMS_ITS | Encounter Summary ---
Author Organization [facility] Address [address] [place] [address]. [place], [place] [address] [place] [address] Care Team Providers Care Voice Professor Name Role Phone Ilir Nelson Primary Care Provider [phone] Reason for Visit * Reason Onset Date Comments Quality Gap Closure 02/22/2024 Encounter Details Date Type Department Care Team (Late st Contact Info) Description 02/22/2024 Patient Outreach [facility] Medical Group Family & Internal Medicine [address] [address] Avtar Song MA Quality Gap [...] on file Legal Sex Male 9:58 PM GRADING MACHINE OPERATOR Gender Identity Not on file Sexual Orientation Not on file documented as of this encounter Functional Status * RETIRED Are you deaf or do you have serious difficulty hearing Answer Date of Assessment Author Status No 10/02/2021 12:38 PM GRADING MACHINE OPERATOR Acti ve * RETIRED Are you blind or do you have serious difficulty seeing, even when wearing glasses? Answer Date of Assessment Author Status No 10/02/2021 12:38 PM GRADING MACHINE OPERATOR Acti ve * Do you have serious difficulty walking or climbing stairs? Answer Date of Assessment Author Status No 10/02/2021 12:38 PM GRADING MACHINE OPERATOR Annette Jorge R N Active * Do you have difficulty dressing or bathing? Answer Date of Assessment Author Status No 10/02/2021 12:38 PM GRADING MACHINE OPERATOR Annette Jorge R Susan Active * Because of a physical, mental, or emotional condition, do you have difficulty doing errands alone such as visiting a doctor's office or shopping? Answer Date of Assessment Author Status No 10/02/2021 12:38 PM GRADING MACHINE OPERATOR Annette Jorge R Susan Active documented as of this encounter Mental Status * Because of a physical, mental, or emotional condition, do you have serious difficulty concentrating, remembering, or making decisions? Answer Entry Date Author Status No 10/02/2021 12:38 PM GRADING MACHINE OPERATOR Annette Jorge R N Active documented in this encounter Progress Notes * Avtar Song MA - 02/22/2024 2:58 PM CDT I am a patient quality advocate calling this patient on behalf of the virtual stand work team to assess the below quality gaps. If you need to contact me directly- my number is [phone]. Preventive Screenings: Breast Cancer Screening: N/A Notes: [...] HOSPITAL Medical Group Family & Internal Medicine [facility] [address] [place] [address] [place] [address] [place] [address] 10/22/2025 9:15 AM GRADING MACHINE OPERATOR Office Visit [facility] [address] [address] Mily Gan MD [facility] [address] [place] [address] documented as of this encounter [...] documented as of this encounter Care Teams Voice Professor Relationship Specialty [place] [address] [place] [address] PCP - General Physician Gear Tester Medical 01/06/24 documented as of this encounter
--- OUTSIDE RECORDS SUMMARY | 2024-11-02 09:10 | XMS_ITS | Encounter Summary ---
Author Organization [facility] Address [address] [place] [address]. [place], [place] [address] [place] [address] Care Team Providers Care Labelling Machine Operator Name Role Phone Ilir Nelson Primary Care Provider [phone] Encounter Details Date Type Department Care Team [...] on file Legal Sex Male 9:58 PM OPTOMETRIST OWNER Gender Identity Not on file Sexual Orientation Not on file documented as of this encounter Functional Status * RETIRED Are you deaf or do you have serious difficulty hearing Answer Date of Assessment Author Status No 10/02/2021 12:38 PM OPTOMETRIST OWNER Acti ve * RETIRED Are you blind or do you have serious difficulty seeing, even when wearing glasses? Answer Date of Assessment Author Status No 10/02/2021 12:38 PM OPTOMETRIST OWNER Acti ve * Do you have serious difficulty walking or climbing stairs? Answer Date of Assessment Author Status No 10/02/2021 12:38 PM OPTOMETRIST OWNER Annette Jorge R N Active * Do you have difficulty dressing or bathing? Answer Date of Assessment Author Status No 10/02/2021 12:38 PM OPTOMETRIST OWNER Annette Jorge R N Active * Because of a physical, mental, or emotional condition, do you have difficulty doing errands alone such as visiting a doctor's office or shopping? Answer Date of Assessment Author Status No 10/02/2021 12:38 PM OPTOMETRIST OWNER Annette Jorge R N Active documented as of this encounter Mental Status * Because of a physical, mental, or emotional condition, do you have serious difficulty concentrating, remembering, or making decisions? Answer Entry Date Author Status No 10/02/2021 12:38 PM OPTOMETRIST OWNER Annette Jorge R N Active documented in this encounter Plan of Treatment Upcoming Encounters Date Type Department Care Team (Late st Contact Info) Description 01/27/2025 7:00 AM CDT Office Visit [facility] Group Family & Internal Medicine [facility] [address] [place] [address] [place] [address] [place], [place] [phone] 10/22/2025 9:15 AM OPTOMETRIST OWNER Office Visit [facility] [address] Mily Gan MD [address] [phone] documented as of this encounter Goals Goal [...] documented as of this encounter Care Teams Labelling Machine Operator Relationship Specialty [place] [address] [place] [address] PCP - General Physician Commutator V Ring Assembler Medical 01/06/24 documented as of this encounter
--- OUTSIDE RECORDS SUMMARY | 2024-11-02 09:10 | XMS_ITS | Encounter Summary ---
Author Organization [facility] Address [address] [place] [address]. [place], [place] [address] [place] [address] Care Team Providers Care Director Of Housing Name Role Phone Ilir Nelson Primary Care Provider [phone] Encounter Details Date Type Department Care Team [...] on file Legal Sex Male 9:58 PM FILLING STATION LABORER Gender Identity Not on file Sexual Orientation Not on file documented as of this encounter Functional Status * RETIRED Are you deaf or do you have serious difficulty hearing Answer Date of Assessment Author Status No 10/02/2021 12:38 PM FILLING STATION LABORER Acti ve * RETIRED Are you blind or do you have serious difficulty seeing, even when wearing glasses? Answer Date of Assessment Author Status No 10/02/2021 12:38 PM FILLING STATION LABORER Acti ve * Do you have serious difficulty walking or climbing stairs? Answer Date of Assessment Author Status No 10/02/2021 12:38 PM FILLING STATION LABORER Annette Jorge R N Active * Do you have difficulty dressing or bathing? Answer Date of Assessment Author Status No 10/02/2021 12:38 PM FILLING STATION LABORER Annette Jorge R N Active * Because of a physical, mental, or emotional condition, do you have difficulty doing errands alone such as visiting a doctor's office or shopping? Answer Date of Assessment Author Status No 10/02/2021 12:38 PM FILLING STATION LABORER Annette Jorge R N Active documented as of this encounter Mental Status * Because of a physical, mental, or emotional condition, do you have serious difficulty concentrating, remembering, or making decisions? Answer Entry Date Author Status No 10/02/2021 12:38 PM FILLING STATION LABORER Annette Jorge R N Active documented in this encounter Plan of Treatment Upcoming Encounters Date Type Department Care Team (Late st Contact Info) Description 01/27/2025 7:00 AM CDT Office Visit [facility] Group Family & Internal Medicine [facility] [address] [place] [address] Il[place] [address] [place] [id number] 10/22/2025 9:15 AM FILLING STATION LABORER Office Visit [facility] [address] Mily Gan MD [address] [address] documented as of this encounter Goals Goal [...] of this encounter Care Teams Director Of Housing Relationship Specialty [place] [address] [place] [address] PCP - General Physician Product Operations Associate Medical 01/06/24 documented as of this encounter
--- OUTSIDE RECORDS SUMMARY | 2024-11-02 09:10 | XMS_ITS | Encounter Summary ---
Author Organization [facility] Address [address] [place] [address]. [place], [place] [address] [place] [address] Care Team Providers Care Elevator Operator Freight Name Role Phone Ilir Nelson Primary Care Provider [phone] Encounter Details Date Type Department Care Team (Late st Contact Info) Description 07/24/2024 Orders Only [facility] [address] [place], [place] [phone] [place] [address] [place], [place] [phone] Social History Tobacco Use Types Packs/Day Years [...] on file Legal Sex Male 9:58 PM GIS WEB DEVELOPER Gender Identity Not on file Sexual Orientation Not on file documented as of this encounter Functional Status * RETIRED Are you deaf or do you have serious difficulty hearing Answer Date of Assessment Author Status No 10/02/2021 12:38 PM GIS WEB DEVELOPER Acti ve * RETIRED Are you blind or do you have serious difficulty seeing, even when wearing glasses? Answer Date of Assessment Author Status No 10/02/2021 12:38 PM GIS WEB DEVELOPER Acti ve * Do you have serious difficulty walking or climbing stairs? Answer Date of Assessment Author Status No 10/02/2021 12:38 PM GIS WEB DEVELOPER Annette Jorge R N Active * Do you have difficulty dressing or bathing? Answer Date of Assessment Author Status No 10/02/2021 12:38 PM GIS WEB DEVELOPER Annette Jorge R N Active * Because of a physical, mental, or emotional condition, do you have difficulty doing errands alone such as visiting a doctor's office or shopping? Answer Date of Assessment Author Status No 10/02/2021 12:38 PM GIS WEB DEVELOPER Annette Jorge R N Active documented as of this encounter Mental Status * Because of a physical, mental, or emotional condition, do you have serious difficulty concentrating, remembering, or making decisions? Answer Entry Date Author Status No 10/02/2021 12:38 PM GIS WEB DEVELOPER Annette Jorge R N Active documented in this encounter Plan of Treatment Upcoming Encounters Date Type Department Care Team (Late st Contact Info) Description 01/27/2025 7:00 AM CDT Office Visit [facility] Family & Internal Medicine [facility] [address] [place] [address] [place] [address] [place], [place] [phone] 10/22/2025 9:15 AM GIS WEB DEVELOPER Office Visit [facility] [address] Mily Gan MD [address] [address] documented as of this encounter Goals Goal [...] * LIPID PANEL (07/24/2024 9:48 AM CDT) [facility] Signature CHOLESTEROL 158 <200.0 MG/DL 07/24/2024 10:58 AM T [facility] TRIGLYCERIDES 65 <150 MG/DL 07/24/2024 10:58 AM T [facility] HDL 52 >40.0 MG/DL 07/24/2024 10:58 AM [facility] LDL (CALCULATED) 93 <100 MG/DL 07/24/20 10:58 AM [facility] NON HDL CHOLESTEROL 106 <130 MG/DL 07/24 10:58 AM [facility] CHOL/HDL RATIO 3.0 0.0 - 4.5 07/24/2024 10:58 AM [facility] VLDL CALCULATION 13 5 - 55 MG/DL 07/24/2024 10:58 AM [facility] LIPID INTERPRETATION 07/24/2024 10:58 AM [facility] Comment: NIH CONCENSUS [...] [facility] Final Result Performing Organization Address City/State/[facility] de Phone Number [facility] [address] [place] [address], * THYROXINE, FREE (FT4) (07/24/2024 9:48 AM CDT) FREE T4 0.90 0.76 - 1.46 NG/DL 07/24/2024 10:58 AM CDT [facility] 07/24/2024 9:48 AM CDT us Ilir [facility] Final Result [facility] [address] [place] [address], * (ABNORMAL) COMPREHENSIVE METABOLIC PANEL (07/24/2024 9:48 AM CDT) GLUCOSE 100(H) 70 - 99 MG/DL 07/24/2024 10:58 AM CDT [facility] BUN 14 7 - 18 MG/DL 07/24/2024 10:58 AM CDT [facility] CREATININE S/P/B 0.80 0.7 - 1.3 MG/DL 07/24/2024 10:58 AM CDT [facility] SODIUM S/P/B 141 136 - 145 MMOL/L 07/24/2024 10:58 AM CDT [facility] POTASSIUM S/P/B 4.4 3.5 - 5.1 MMOL/L 07/24/2024 10:58 AM CDT [facility] CHLORIDE S/P/B 105 100 - 108 MMOL/L 07/24/2024 10:58 AM CDT [facility] CO2 28.8 21 - 32 MMOL/L 07/24/2024 10:58 AM CDT [facility] CALCIUM S/P/B 8.8 8.5 - 10.1 MG/DL 07/24/2024 10:58 AM CDT [facility] BILIRUBIN TOTAL S/P/B 1.2 0.2 - 1.2 MG/DL 07/24/2024 10:58 AM T [facility] TOTAL PROTEIN S/P/B 7.6 6.4 - 8.2 G/DL 07/24/2024 10:58 AM CDT [facility] ALBUMIN S/P/B 3.8 3.4 - 5.0 G/DL 07/24/2024 10:58 AM CDT [facility] AST 25 15 - 37 U/L 07/24/2024 10:58 AM CDT [facility] ALT 37 16 - 60 U/L 07/24/2024 10:58 AM CDT [facility] ALKALINE PHOSPHATASE S/P/B 53 50 - 136 U/L 07/24/2024 10:58 AM CDT [facility] ANION GAP 7.2 5 - 15 MMOL/L 07/24/2024 10:58 AM T [facility] BUN CREATININE RATIO 17.5 6 - 26 07/24/2024 10:58 AM T [facility] A/G RATIO 1.0 1.0 - 2.0 RATIO 07/24/2024 10:58 AM T [facility] GFR ESTIMATE >90 >90 ML/MIN/1.7 3 M2 07/24/2024 10:58 AM T [facility] Comment: NOTE: eGFR is not calculated for patients <18 years of age. This is an estimated GFR calculation using the new CKD EPI creatinine equation without race and so does not require a correction factor for race. This estimated GFR should not be used for calculating drug doses. 07/24/2024 9:48 AM CDT us Ilir [facility] Final Result [facility] [address] [place] [address], * (ABNORMAL) CBC W/DIFF AUTOMATED (07/24/2024 9:48 AM CDT) WBC 4.93 4.4 - 11.0 x10'3/uL 07/24/2024 10:15 AM CDT [facility] RBC 4.36(L) 4.50 - 5.90 x10'6/uL 07/24/2024 10:15 AM CDT [facility] HGB 14.2 14.0 - 17.5 G/DL 07/24/2024 10:15 AM CDT [facility] HCT 41.7 41.5 - 50.4 % 07/24/2024 10:15 AM CDT [facility] MCV 95.6 80.0 - 96.0 FL 07/24/2024 10:15 AM CDT [facility] MCH 32.6(H) 26.5 - 31.4 PG 07/24/2024 10:15 AM CDT [facility] MCHC 34.1 31.9 - 34.8 G/DL 07/24/2024 10:15 AM T [facility] RDW 12.7 12.3 - 14.3 % 07/24/2024 10:15 AM CDT [facility] PLT 193 151 - 353 x10'3/uL 07/24/2024 10:15 AM [facility] MPV 10.6 9.7 - 11.9 FL 07/24/2024 10:15 AM T [facility] RBC MORPHOLOGY NORMAL 07/24/2024 10:15 AM T [facility] PLT MORPH. NORMAL 07/24/2024 10:15 AM CDT [facility] WBC MORPHOLOGY NORMAL 07/24/2024 10:15 AM CDT [facility] LYMPHOCYTES % 32.3 15.8 - 45.0 % 07/24/2024 10:15 AM CDT [facility] NEUTROPHILS % 53.5 42.1 - 71.9 % 07/24/2024 10:15 AM CDT [facility] MONOCYTES % 11.4 5.7 - 12.5 % 07/24/2024 10:15 AM CDT [facility] EOSINOPHILS 1.4 0.0 - 5.6 % 07/24/2024 10:15 AM CDT [facility] BASOPHILS 1.0 0.0 - 1.3 % 07/24/2024 10:15 AM CDT [facility] ABS. NEUTROPHILS 2.64 1.40 - 6.00 x10'3/uL 07/24/2024 10:15 AM CDT [facility] IMMATURE GRANS % 0.4 0.0 - 0.5 % 07/24/2024 10:15 AM CDT [facility] ABS. LYMPHOCYTES 1.59 0.80 - 4.70 x10'3/uL 07/24/2024 10:15 AM CDT [facility] 07/24/2024 9:48 AM CDT Ilir [facility] Final Result [facility] [address] [place] [phone], * INSULIN,TOTAL (07/24/2024 9:48 AM CDT) [facility] INSULIN 10.0 <=18.4 uIU/mL 07/28/2024 3:36 PM CDT [facility] SCHNEIDER Comment: Risk: Optimal ??< or = 18.4 Moderate ? NA High ? >18.4 Adult cardiovascular event risk category cut points (optimal, moderate, high) are based on Insulin Reference interval studies performed at [facility] in 2021. Test Performed by April Chi, [facility], [address] [place] [address] Jay Hirsch M.D., Ph.D., Director of Laboratories , [place] [id number] 07/24/2024 9:48 AM CDT Ilir [facility] Final Result Performing Organization Address City/[facility]/ZIP Co de Phone Number Flazio PATEL [facility] [address] [place] [address], [place] [phone] * VITAMIN D, 25 [place] (07/24/2024 9:48 AM CDT) VITAMIN D 25 HYDROXY S/P/B 49 30 - 100 NG/ML 07/24/2024 11:09 AM CDT [facility] Comment: ? INTERPRETATION ? DEFICIENT ??<20 ? INSUFFICIENT 20-29 ?SUFFICIENT 30-100 07/24/2024 9:48 AM CDT Ilir [facility] Final Result Performing Organization Address [facility] de Phone Number [facility] [address] [place] [address], [place] [phone] * THYROID STIM HORMONE TSH (07/24/2024 9:48 AM CDT) Pathologist [facility] TSH 1.555 0.358 - 3.74 uIU/ML 07/24/2024 10:58 AM CDT [facility] Comment: HIGH DOSES OF BIOTIN MAY INTERFERE WITH THIS TEST RESULT. CORRELATION TO CLINICAL HISTORY AND PRESENTATION RECOMMENDED. 07/24/2024 9:48 AM CDT [facility] Final Result Performing Organization Address City/[facility]/ZIP Co de Phone Number [facility] [address] [facility] [place] [address], documented in this encounter Visit Diagnoses Diagnosis [...] documented as of this encounter Care Teams Elevator Operator Freight Relationship Specialty [place] [address] [place] [address] PCP - General Physician Farm Implement Mechanic Medical 01/06/24 documented as of this encounter
--- OUTSIDE RECORDS SUMMARY | 2024-11-02 09:11 | XMS_ITS | Encounter Summary ---
Author Organization [facility] Address [address] [place] [address]. [place] [address] [place] [address] Care Team Providers Care Hr Analyst Name Role Phone AkashCandis hedrick BETTY Primary Care Provider [phone] Reason for Visit * Reason Onset Date Comments Results 10/26/2023 Encounter Details Date Type Department Care Team ([facility] st Contact Info) Description 10/26/2023 [address]phone [address] [address] [phone] Rafaela Goncalves, RN Results Social History Tobacco [...] on file Legal Sex Male 9:58 PM CIGAR MAKING SUPERVISOR Gender Identity Not on file Sexual Orientation Not on file documented as of this encounter Functional Status * RETIRED Are you deaf or do you have serious difficulty hearing Answer Date of Assessment Author Status No 10/02/2021 12:38 PM CIGAR MAKING SUPERVISOR Acti ve * RETIRED Are you blind or do you have serious difficulty seeing, even when wearing glasses? Answer Date of Assessment Author Status No 10/02/2021 12:38 PM CIGAR MAKING SUPERVISOR Acti ve * Do you have serious difficulty walking or climbing stairs? Answer Date of Assessment Author Status No 10/02/2021 12:38 PM CIGAR MAKING SUPERVISOR Annette Jorge, R N Active * Do you have difficulty dressing or bathing? Answer Date of Assessment Author Status No 10/02/2021 12:38 PM CIGAR MAKING SUPERVISOR Annette Jorge, R N Active * Because of a physical, mental, or emotional condition, do you have difficulty doing errands alone such as visiting a doctor's office or shopping? Answer Date of Assessment Author Status No 10/02/2021 12:38 PM CIGAR MAKING SUPERVISOR Annette Jorge, R N Active documented as of this encounter Mental Status * Because of a physical, mental, or emotional condition, do you have serious difficulty concentrating, remembering, or making decisions? Answer Entry Date Author Status No 10/02/2021 12:38 PM CIGAR MAKING SUPERVISOR Annette Jorge, R N Active documented in this encounter Progress Notes * Rafaela Goncalves RN - 10/26/2023 11:41 AM CST Please let patient know his echocardiogram looks good. Normal LV systolic function with no significant valvular abnormalities. Above message from [facility]. [employer] message sent to the patient with the above information. R MAKING SUPERVISOR documented in this encounter Plan of Treatment Upcoming Encounters Date Type Department Care Team (Late st Contact Info) Description 01/27/2025 7:00 AM CDT Office Visit [facility] Family & Internal Medicine - [place] [address] [place] [phone] [place] [id number] [place] [phone] 10/22/2025 9:15 AM CIGAR MAKING SUPERVISOR Office Visit [facility] [address] [place] [address] Mily Gan MD [facility] [address] [place] [address] documented as of this encounter Goals Goal [...] documented as of this encounter Care Teams Hr Analyst Relationship Specialty [place] [address] [address], [address] [place] [address] PCP - General Nurse Practitioner Family 02/10/2301/04 documented as of this encounter
--- OUTSIDE RECORDS SUMMARY | 2024-11-02 09:11 | XMS_ITS | Encounter Summary ---
Author Organization [facility] Address [address] [place] [address]. [place], [place] [address] [place] [address] Care Team Providers Care Bilingual Student Tutor Name Role Phone AkashCandis hedrick BETTY Primary Care Provider [phone] Encounter Details Date Type Department Care Team [...] on file Legal Sex Male 9:58 PM ENERGY AND SUSTAINABILITY MANAGER Gender Identity Not on file Sexual Orientation Not on file documented as of this encounter Functional Status * RETIRED Are you deaf or do you have serious difficulty hearing Answer Date of Assessment Author Status No 10/02/2021 12:38 PM ENERGY AND SUSTAINABILITY MANAGER Acti ve * RETIRED Are you blind or do you have serious difficulty seeing, even when wearing glasses? Answer Date of Assessment Author Status No 10/02/2021 12:38 PM ENERGY AND SUSTAINABILITY MANAGER Acti ve * Do you have serious difficulty walking or climbing stairs? Answer Date of Assessment Author Status No 10/02/2021 12:38 PM ENERGY AND SUSTAINABILITY MANAGER Annette Jorge R N Active * Do you have difficulty dressing or bathing? Answer Date of Assessment Author Status No 10/02/2021 12:38 PM ENERGY AND SUSTAINABILITY MANAGER Annette Jorge R N Active * Because of a physical, mental, or emotional condition, do you have difficulty doing errands alone such as visiting a doctor's office or shopping? Answer Date of Assessment Author Status No 10/02/2021 12:38 PM ENERGY AND SUSTAINABILITY MANAGER Annette Jorge R N Active documented as of this encounter Mental Status * Because of a physical, mental, or emotional condition, do you have serious difficulty concentrating, remembering, or making decisions? Answer Entry Date Author Status No 10/02/2021 12:38 PM ENERGY AND SUSTAINABILITY MANAGER Annette Jorge R N Active documented in this encounter Plan of Treatment Upcoming Encounters Date Type Department Care Team (Late st Contact Info) Description 01/27/2025 7:00 AM CDT Office Visit [facility] Group Family & Internal Medicine [facility] [address] [place] [phone] Ilir Nelson PA [address] [place] [phone] 10/22/2025 9:15 AM ENERGY AND SUSTAINABILITY MANAGER Office Visit [facility] [address] Mily Gan MD [address] [phone] documented as of this encounter Goals Goal [...] documented as of this encounter Care Teams Bilingual Student Tutor Relationship Specialty [place] [address] [facility] [address] [place] [address] PCP - General Nurse Practitioner Family 02/10/2301/04 documented as of this encounter
--- OUTSIDE RECORDS SUMMARY | 2024-11-02 09:11 | XMS_ITS | Encounter Summary ---
Author Organization [facility] Address [address] [place] [address]. [place] [address] [place] [address] Care Team Providers Care Insurance Underwriter Sales Name Role Phone Cristal Candis HERNÁNDEZ Primary Care Provider [phone] Reason for Visit * Imaging (Routine) - Closed Specialty Diagnoses / Procedures Referred By Shelby t Referred To Contact RADIOLOGY Diagnoses PAF (paroxysmal atrial fibrillation) ([facility]/HCC [facility]) Procedures USE ECHOCARDIOGRAM W CON USE ECHOCARDIOGRAM Mily Gan MD [facility]. [address] [address] Phone: tel: fax: Referral ID Status Reason Start Date Expiration Date Visits Re quested Visits Authorized [id number] Closed 10/11/2023 10/11/2024 1 1 Encounter Details Date Type Department Care Team (Late st Contact Info) Description 10/20/2023 7:19 AM HAND PATTERN MARKER - 10/20/2023 11:59 PM [facility] Hospital Encounter [facility] [address] [place] [address] Mily Gan MD [facility]. [address] [address] Discharge Disposition: Home or Self [...] file Legal Sex Male 9:58 PM HAND PATTERN MARKER Gender Identity Not on file Sexual Orientation Not on file documented as of this encounter Functional Status * RETIRED Are you deaf or do you have serious difficulty hearing Answer Date of Assessment Author Status No 10/02/2021 12:38 PM HAND PATTERN MARKER Acti ve * RETIRED Are you blind or do you have serious difficulty seeing, even when wearing glasses? Answer Date of Assessment Author Status No 10/02/2021 12:38 PM HAND PATTERN MARKER Acti ve * Do you have serious difficulty walking or climbing stairs? Answer Date of Assessment Author Status No 10/02/2021 12:38 PM HAND PATTERN MARKER Annette Jorge R N Active * Do you have difficulty dressing or bathing? Answer Date of Assessment Author Status No 10/02/2021 12:38 PM HAND PATTERN MARKER Annette Jorge R N Active * Because of a physical, mental, or emotional condition, do you have difficulty doing errands alone such as visiting a doctor's office or shopping? Answer Date of Assessment Author Status No 10/02/2021 12:38 PM HAND PATTERN MARKER Annette Jorge R N Active documented as of this encounter Mental Status * Because of a physical, mental, or emotional condition, do you have serious difficulty concentrating, remembering, or making decisions? Answer Entry Date Author Status No 10/02/2021 12:38 PM HAND PATTERN MARKER Annette Jorge R N Active documented in [...] Medical Group Family & Internal Medicine - [place] [address] [place] [address] [place] [address] [place] [address] 10/22/2025 9:15 AM HAND PATTERN MARKER Office Visit [facility] [address] [place] [phone] Mily Gan MD [facility]. [place] [address] [place] [address] documented as of this [...] ECHOCARDIOGRAM W CON Routine 10/20/2023 9:13 AM HAND PATTERN MARKER PAF (paroxysmal atrial fibrillation) ([facility]/HCC [facility]) documented in this encounter Results * USE ECHOCARDIOGRAM W CON (10/20/2023 9:13 AM HAND PATTERN MARKER) Anatomical Region Laterality Modality NA Ultrasound 10/20/2023 7:37 AM HAND PATTERN MARKER Narrative 10/23/2023 1:01 PM HAND PATTERN MARKER ?YAMILETH ? OUTREACH Pat.Name: ??Natan Patel ? Pat.ID: ?[id number] ? St.Date: ?? 10/20/2023 ? Refer.MD: ??Outreach, [facility] Imaging Exam Time: 7:37:00 AM ?Study Type:OUTREACH ? Height: ?66.9 in ? Weight: ?169 lb ? BSA: ? 1.88 m2 ?Age: ??1955,68Y ? Sex: ? M ? Sonogrphr: Cr ? Pat. Stat.:Outpatient ? Reason for Study:PAF ? Procedures: Study performed at [place], [place] and interpreted by [facility]. 2D, M-mode, Doppler, Color Flow, [...] 10/23/2023 YAMILETH MEHTA Pat.Name: Natan Patel Pat.ID: [id number] .Date: 10/20/2023 Refer.MD: Tyson, [facility] Imaging Exam Time: 7:37:00 AM Study Type:TYSON Height: 66.9 in Weight: 169 lb BSA: 1.88 m2 Age: 9 1955,68Y Sex: M Sonogrphr: Cr Pat. Stat.:Outpatient Reason for Study:PAF Procedures: Study performed at [place], [place] and interpreted by [facility]. 2D, M-mode, Doppler, Color Flow, [...] 10/23/2023 01:01 PM Semaj Simmons M.D. Mily aGn MD ECHO Final Result documented in this encounter Visit Diagnoses Diagnosis PAF (paroxysmal atrial fibrillation) ([facility]/H[facility]/HCC) Atrial fibrillation documented in this encounter [...] mL saline flush. Given 10/20/2023 8:55 AM HAND PATTERN MARKER 2 mLs documented in this encounter Additional Health Concerns Assessment Noted Time PHQ-9 Depression Total Score: 0 01/24/20 8:04 AM CDT documented as of this encounter Care Teams Insurance Underwriter Sales Relationship Specialty [place] [address] [facility], [address] [place] [address] PCP - General Nurse Practitioner Family 02/10/2301/04 documented as of this encounter
--- OUTSIDE RECORDS SUMMARY | 2024-11-02 09:11 | XMS_ITS | Encounter Summary ---
Author Organization [facility] Address [address] [place] [address]. [place], [place] [address] [place] [address] Care Team Providers Care Textile Coating Machine Operator Name Role Phone AkashCandis hedrick BETTY [...] on file Legal Sex Male 9:58 PM DEVELOPER DESIGNER Gender Identity Not on file Sexual Orientation Not on file documented as of this encounter Functional Status * RETIRED Are you deaf or do you have serious difficulty hearing Answer Date of Assessment Author Status No 10/02/2021 12:38 PM DEVELOPER DESIGNER Acti ve * RETIRED Are you blind or do you have serious difficulty seeing, even when wearing glasses? Answer Date of Assessment Author Status No 10/02/2021 12:38 PM DEVELOPER DESIGNER Acti ve * Do you have serious difficulty walking or climbing stairs? Answer Date of Assessment Author Status No 10/02/2021 12:38 PM DEVELOPER DESIGNER Annette Jorge R N Active * Do you have difficulty dressing or bathing? Answer Date of Assessment Author Status No 10/02/2021 12:38 PM DEVELOPER DESIGNER Annette Jorge R N Active * Because of a physical, mental, or emotional condition, do you have difficulty doing errands alone such as visiting a doctor's office or shopping? Answer Date of Assessment Author Status No 10/02/2021 12:38 PM DEVELOPER DESIGNER Annette Jorge R N Active documented as of this encounter Mental Status * Because of a physical, mental, or emotional condition, do you have serious difficulty concentrating, remembering, or making decisions? Answer Entry Date Author Status No 10/02/2021 12:38 PM DEVELOPER DESIGNER Annette Jorge R N Active documented in this encounter Plan of Treatment Upcoming Encounters Date Type Department Care Team (Late st Contact Info) Description 01/27/2025 7:00 AM CDT Office Visit [facility] Medical Group [facility] [address] [place] [phone] Ilir Nelson PA [address] [place] [phone] 10/22/2025 9:15 AM DEVELOPER DESIGNER Office Visit [facility] [address] Mily Gan MD [address] [address] documented as of this encounter Goals Goal [...] documented as of this encounter Care Teams Textile Coating Machine Operator Relationship Specialty [place] [address] [facility], [address] [place] [address] PCP - General Nurse Practitioner Family 02/10/2301/04 documented as of this encounter
--- OUTSIDE RECORDS SUMMARY | 2024-11-02 09:11 | XMS_ITS | Encounter Summary ---
Author Organization [facility] Address [address] [place] [address]. [place], [place] [address] [place] [address] Care Team Providers Care Insole Toe Snipping Machine Operator Name Role Phone Shereen Bee NP Primary Care Provider [phone] Reason for Visit * Reason Comments Consult Atrial Fibrillation * Consultation (Routine) - Closed Specialty Diagnoses / Procedures Referred By Contact Referred To Contact CARDIOLOGY / Cardiology Diagnoses Atrial fibrillation, unspecified type ([facility]) Procedures OFFICE/OUTPATIENT NEW LOW MDM 30-44 MINUTES OFFICE/OUTPT VISIT,NEW,LEVL IV OFFICE/OUTPT VISIT,NEW,LEVL V OFFICE/OUTPT VISIT,EST,LEVL III OFFICE/OUTPT VISIT,EST,LEVL IV OFFICE/OUTPT VISIT,[place] [address] [facility], [address] [place] [address] Phone: tel:[phone] fax:[phone] [facility] [address] [address] Phone: tel: fax: Referral ID Status Reason Start Date Expiration Date V isits Requested Visits Authorized [id number] Closed Specialty Services 07/26/2023 08/24/2024 99 99 Encounter Details Date Type Department Care Team (Late st Contact Info) Description 10/11/2023 9:15 AM LOCAL INTERMODAL TRUCK DRIVER Office Visit [facility] [address] [phone] Rahul Gan MD [facility] [address] [place] [address] Consult; Atrial Fibrillation Social History Tobacco Use [...] on file Legal Sex Male 9:58 PM LOCAL INTERMODAL TRUCK DRIVER Gender Identity Not on file Sexual Orientation Not on file documented as of this encounter Last Filed Vital Signs Vital Sign Reading Time Taken Comments Blood Pressure 120/70 10/11/2023 9:03 AM LOCAL INTERMODAL TRUCK DRIVER Pulse 67 10/11/2023 9:03 AM LOCAL INTERMODAL TRUCK DRIVER Temperature - - Respiratory Rate - - Oxygen Saturation - - Inhaled Oxygen Concentration - - Weight 76.7 kg (169 lb) 10/11/2023 9:03 AM LOCAL INTERMODAL TRUCK DRIVER Height 170.2 cm (5' 7 ) 10/11/2023 9:03 AM LOCAL INTERMODAL TRUCK DRIVER Body Mass Index 26.47 10/11/2023 9:03 AM LOCAL INTERMODAL TRUCK DRIVER documented in this encounter Functional Status * RETIRED Are you deaf or do you have serious difficulty hearing Answer Date of Assessment Author Status No 10/02/2021 12:38 PM LOCAL INTERMODAL TRUCK DRIVER Acti ve * RETIRED Are you blind or do you have serious difficulty seeing, even when wearing glasses? Answer Date of Assessment Author Status No 10/02/2021 12:38 PM LOCAL INTERMODAL TRUCK DRIVER Acti ve * Do you have serious difficulty walking or climbing stairs? Answer Date of Assessment Author Status No 10/02/2021 12:38 PM Annette Mercer R N Active * Do you have difficulty dressing or bathing? Answer Date of Assessment Author Status No 10/02/2021 12:38 PM LOCAL INTERMODAL TRUCK DRIVER Annette Jorge R N Active * Because [...] on: 10/11/2023 09:23 AM Modules accepted: Orders L INTERMODAL TRUCK DRIVER * Rahul Gan MD - 10/11/2023 9:15 [...] biopsy performed by Federico Mayer MD at [facility] OR COLOSTOMY reversable HERNIA REPAIR Right [facility] HERNIA REPAIR Left [facility] NECK/CHEST PROCEDURE UNLISTED Right [facility], re-built right side of neck. SMALL INTESTINE SURGERY bowel rupture TOTAL KNEE ARTHROPLASTY Bilateral ZANA Partial KR, done @ [facility] Social History Tobacco Use Smoking status: Some [...] Comments: Diagnoses/Impression: 1. PAF (paroxysmal atrial fibrillation) ([facility]/HCC) ([facility]/HCC) ELECTROCARDIOGRAM Referring Provider: Shereen Bee NP PCP: SHEREEN BEE NP L INTERMODAL TRUCK DRIVER documented in this encounter Plan of Treatment Upcoming Encounters Date Type Department Care Team (Late st Contact Info) Description 01/27/2025 7:00 AM CDT Office Visit [facility] Medical Group Family & Internal Medicine [facility] [address] [place] [phone] [place] [address] [place] [phone] 10/22/2025 9:15 AM LOCAL INTERMODAL TRUCK DRIVER Office Visit [facility] [address] [place] [address] Rahul Gan MD [facility]. [facility] [address] [place] [address] documented as of this encounter Goals Goal [...] (NON MIDMARK ACQUIRED) Routine 10/11/2023 9:01 AM LOCAL INTERMODAL TRUCK DRIVER PAF (paroxysmal atrial fibrillation) ([facility]/HCC [facility]) documented in this encounter Results * ELECTROCARDIOGRAM (10/11/2023 9:01 AM LOCAL INTERMODAL TRUCK DRIVER) 10/11/2023 9:01 AM LOCAL INTERMODAL TRUCK DRIVER Narrative [facility] - 10/11/2023 12:14 PM LOCAL INTERMODAL TRUCK DRIVER ? [facility] ? Test Date: ?2023-10-11 Pat Name: ? MANDIE PATEL ? Department: ?? 108 ? Room: ? Gender: ? Male ? Tunneling Machine Operator: ?? : ?1955 ? Requested By: RAHUL GAN Order Number: [id number] ?Reading MD: ?? Rahul Gan ? Measurements Intervals ?[place] ? Rate: ? 69 ? P: ?63 [place]: ? 177 ?QRS: ?77 QRSD: ? 89 ? T: ?68 QT: ? 390 ? QTc: ?419 ? Interpretive Statements SINUS RHYTHM Compared to ECG dated 09/27/21, findings are similar. L INTERMODAL TRUCK DRIVER Procedure Note Rahul Gan MD - 10/11/2023 [facility] [place] Test Date: 2023-10-11 Pat Name: MANDIE PATEL Department: 108 Room: Gender: Male Tunneling Machine Operator: : 1955 Requested By: RAHUL GAN Order Number: [id number] Reading MD: Rahul Gan Measurements Intervals [place] Rate: 69 P: 63 [place]: 177 QRS: 77 QRSD: 89 T: 68 QT: 390 QTc: 419 Interpretive Statements SINUS RHYTHM Compared to ECG dated 09/27/21, findings are similar. L INTERMODAL TRUCK DRIVER us Rahul aGn MD PROCEDURES-ORDERABLE NO CHARGE F inal Result [facility] documented in this encounter Visit Diagnoses Diagnosis PAF (paroxysmal atrial fibrillation) ([facility])- Primary Atrial fibrillation documented in this encounter Additional Health Concerns Assessment Noted Time PHQ-9 Depression Total Score: 0 01/24/20 23 8:04 AM CDT documented as of this encounter Care Teams Insole Toe Snipping Machine Operator Relationship Specialty [place] [address] [facility], [address] [place] [address] PCP - General Nurse Practitioner Family 02/10/2301/04 documented as of this encounter
--- OUTSIDE RECORDS SUMMARY | 2024-11-02 09:11 | XMS_ITS | Encounter Summary ---
Author Organization [facility] Address [address] [place] [address]. [place], [place] [address] [place] [address] Care Team Providers Care Instrument Shop Supervisor Name Role Phone Candis Bee NP Primary Care Provider [phone] Ilir Nelson Primary Care Provider [phone] Reason for Visit * Reason Comments Procedure [...] on file Legal Sex Male 9:58 PM BUTTON SAWYER Gender Identity Not on file Sexual Orientation Not on file documented as of this encounter Functional Status * RETIRED Are you deaf or do you have serious difficulty hearing Answer Date of Assessment Author Status No 10/02/2021 12:38 PM BUTTON SAWYER Acti ve * RETIRED Are you blind or do you have serious difficulty seeing, even when wearing glasses? Answer Date of Assessment Author Status No 10/02/2021 12:38 PM BUTTON SAWYER Acti ve * Do you have serious difficulty walking or climbing stairs? Answer Date of Assessment Author Status No 10/02/2021 12:38 PM BUTTON SAWYER Annette Jorge R Susan Active * Do you have difficulty dressing or bathing? Answer Date of Assessment Author Status No 10/02/2021 12:38 PM BUTTON SAWYER Annette Jorge R N Active * Because of a physical, mental, or emotional condition, do you have difficulty doing errands alone such as visiting a doctor's office or shopping? Answer Date of Assessment Author Status No 10/02/2021 12:38 PM BUTTON SAWYER Annette Jorge R N Active documented as of this encounter Mental Status * Because of a physical, mental, or emotional condition, do you have serious difficulty concentrating, remembering, or making decisions? Answer Entry Date Author Status No 10/02/2021 12:38 PM BUTTON SAWYER Annette Jorge, R N Active documented in this encounter Plan of Treatment Upcoming Encounters Date Type Department Care Team (Late st Contact Info) Description 01/27/2025 7:00 AM CDT Office Visit [facility] Medical Group Family & Internal Medicine [facility] [address] [place] [phone] [place] Nelson [place] [address] [place] [address] 10/22/2025 9:15 AM BUTTON SAWYER Office Visit [facility] [phone] Mily Gan MD [address] [address] documented as of this encounter Goals Goal [...] documented as of this encounter Care Teams Instrument Shop Supervisor Relationship Specialty [place] [address] [address], [address] [place] [address] PCP - General Nurse Practitioner Family 02/10/2301/04 [place] [address] [place] [address] PCP - General Physician Ticket Writer Medical 01/06/24 documented as of this encounter
--- OUTSIDE RECORDS SUMMARY | 2024-11-02 09:11 | XMS_ITS | Encounter Summary ---
Author Organization [facility] Address [address] [place] [address]. [place], [place] [address] [place] [address] Care Team Providers Care Peeled Potato Inspector Name Role Phone Ilir Nelson Primary Care Provider [phone] Encounter Details Date Type Department Care Team [...] on file Legal Sex Male 9:58 PM MILLED LUMBER GRADER Gender Identity Not on file Sexual Orientation Not on file documented as of this encounter Functional Status * RETIRED Are you deaf or do you have serious difficulty hearing Answer Date of Assessment Author Status No 10/02/2021 12:38 PM MILLED LUMBER GRADER Acti ve * RETIRED Are you blind or do you have serious difficulty seeing, even when wearing glasses? Answer Date of Assessment Author Status No 10/02/2021 12:38 PM MILLED LUMBER GRADER Actmonique ve * Do you have serious difficulty walking or climbing stairs? Answer Date of Assessment Author Status No 10/02/2021 12:38 PM MILLED LUMBER GRADER Annette Jorge R N Active * Do you have difficulty dressing or bathing? Answer Date of Assessment Author Status No 10/02/2021 12:38 PM MILLED LUMBER GRADER Annette Jorge R N Active * Because of a physical, mental, or emotional condition, do you have difficulty doing errands alone such as visiting a doctor's office or shopping? Answer Date of Assessment Author Status No 10/02/2021 12:38 PM MILLED LUMBER GRADER Annette Jorge R N Active documented as of this encounter Mental Status * Because of a physical, mental, or emotional condition, do you have serious difficulty concentrating, remembering, or making decisions? Answer Entry Date Author Status No 10/02/2021 12:38 PM MILLED LUMBER GRADER Annette Jorge R N Active documented in this encounter Plan of Treatment Upcoming Encounters Date Type Department Care Team (Late st Contact Info) Description 01/27/2025 7:00 AM CDT Office Visit [facility] Medical Group Family & Internal Medicine [facility] [address] [place] [phone] Ilir Nelson PA [address] [place] [phone] 10/22/2025 9:15 AM MILLED LUMBER GRADER Office Visit [facility] [address] Mily Gan MD [address] [address] documented as of this encounter Goals Goal [...] documented as of this encounter Care Teams Peeled Potato Inspector Relationship Specialty [place] [address] [place] [address] PCP - General Physician Butter Liquefier Medical 01/06/24 documented as of this encounter
--- OUTSIDE RECORDS SUMMARY | 2024-11-02 09:11 | XMS_ITS | Encounter Summary ---
Author Organization [facility] Address [address] [place] [address]. [place], [place] [address] [place] [address] Care Team Providers Care Hospital Coordinator Name Role Phone AkashCandis hedrick BETTY Primary Care Provider [phone] Encounter Details Date Type Department Care Team [...] file Legal Sex Male 9:58 PM GLASS SAGGER Gender Identity Not on file Sexual Orientation Not on file documented as of this encounter Functional Status * RETIRED Are you deaf or do you have serious difficulty hearing Answer Date of Assessment Author Status No 10/02/2021 12:38 PM GLASS SAGGER Acti ve * RETIRED Are you blind or do you have serious difficulty seeing, even when wearing glasses? Answer Date of Assessment Author Status No 10/02/2021 12:38 PM GLASS SAGGER Acti ve * Do you have serious difficulty walking or climbing stairs? Answer Date of Assessment Author Status No 10/02/2021 12:38 PM GLASS SAGGER Annette Jorge R N Active * Do you have difficulty dressing or bathing? Answer Date of Assessment Author Status No 10/02/2021 12:38 PM GLASS SAGGER Annette Jorge R N Active * Because of a physical, mental, or emotional condition, do you have difficulty doing errands alone such as visiting a doctor's office or shopping? Answer Date of Assessment Author Status No 10/02/2021 12:38 PM GLASS SAGGER Annette Jorge R N Active documented as of this encounter Mental Status * Because of a physical, mental, or emotional condition, do you have serious difficulty concentrating, remembering, or making decisions? Answer Entry Date Author Status No 10/02/2021 12:38 PM GLASS SAGGER Annette Jorge R N Active documented in this encounter Plan of Treatment Upcoming Encounters Date Type Department Care Team (Late st Contact Info) Description 01/27/2025 7:00 AM CDT Office Visit [facility] Medical Group Family & Internal Medicine [facility] [address] [place] [phone] Ilir Nelson PA [address] [place] [phone] 10/22/2025 9:15 AM GLASS SAGGER Office Visit [facility] [phone] Mily Gan MD [address] [phone] documented as of this encounter Goals Goal [...] documented as of this encounter Care Teams Hospital Coordinator Relationship Specialty [place] [address] [facility], [address] [place] [address] PCP - General Nurse Practitioner Family 02/10/2301/04 documented as of this encounter
--- OUTSIDE RECORDS SUMMARY | 2024-11-02 09:11 | XMS_ITS | Encounter Summary ---
Author Organization [facility] Address [address] [place] [address]. [place], [place] [address] [place] [address] Care Team Providers Care Classified Advertising Supervisor Name Role Phone Candis Bee NP Primary Care Provider [phone] Reason for Referral * Procedure (Routine) - Closed Specialty Diagnoses / Procedures Referred By Contac t Referred To Contact Diagnoses Mild emphysema (CMS/HCC HHS/HCC) Procedures Complete PFT (pre/post [place], Lung Vol, Diff Capacity) (875[address], 78258, [address], [address]) [place] [address] [address], [address] [place] [address] Phone: tel: fax: Referral ID Status Reason Start Date Expiration Date Visits Re quested Visits Authorized [id number] Closed 08/04/2023 09/03/2024 1 1 MAN MAIN BATTLE TANK Reason for Visit * Procedure (Routine) - Closed Specialty Diagnoses / Procedures Referred By Contac t Referred To Contact Diagnoses Mild emphysema (CMS/HCC HHS/HCC) Procedures Complete PFT (pre/post [place], Lung Vol, Diff Capacity) (75[address], [address], 17446, [address]) [place] [address] [address], [address] [place] [address] Phone: tel: fax: Referral ID Status Reason Start Date Expiration Date Visits Re quested Visits Authorized [id number] Closed 08/04/2023 09/03/2024 1 1 Encounter Details Date Type Department Care Team (Latest Contact Info) Description 11/28/2023 9:45 AM CREWMAN MAIN BATTLE TANK - 11/28/2023 11:59 PM CREWMAN MAIN BATTLE TANK Hospital Encounter [facility] [address] [place] [address] [place] [address] [address], [address] [place] [address] Discharge Disposition: Home or Self Care (Routine [...] on file Legal Sex Male 9:58 PM CREWMAN MAIN BATTLE TANK Gender Identity Not on file Sexual Orientation Not on file documented as of this encounter Functional Status * RETIRED Are you deaf or do you have serious difficulty hearing Answer Date of Assessment Author Status No 10/02/2021 12:38 PM CREWMAN MAIN BATTLE TANK Acti ve * RETIRED Are you blind or do you have serious difficulty seeing, even when wearing glasses? Answer Date of Assessment Author Status No 10/02/2021 12:38 PM CREWMAN MAIN BATTLE TANK Acti ve * Do you have serious difficulty walking or climbing stairs? Answer Date of Assessment Author Status No 10/02/2021 12:38 PM CREWMAN MAIN BATTLE TANK Annette Jorge, [place] Active * Do [...] having any problems breathing or sob? Thanks. MAN MAIN BATTLE TANK documented in this encounter Procedure Notes * Torri Hernández MD - 11/28/2023 10:00 AM CSTAssociated Order(s): PULMONARY FUNCTION TEST [facility] PULMONARY FUNCTION TEST REPORT Natan Patel [...] lower limit of normal. TORRI HERNÁNDEZ MD MAN MAIN BATTLE TANK documented in this encounter Plan of Treatment Upcoming Encounters Date Type Department Care Team (Late st Contact Info) Description 01/27/2025 7:00 AM CDT Office Visit [facility] Medical Group Family & Internal Medicine - [address] [phone] [place] [address] [place] [address] 10/22/2025 9:15 AM CREWMAN MAIN BATTLE TANK Office Visit [facility] [address] [place] [address] Mily Gan MD [facility]. [facility] [address] [place] [address] documented as of this encounter [...] PULMONARY FUNCTION TEST Routine 11/28/2023 10:00 AM CREWMAN MAIN BATTLE TANK Mild emphysema ([facility]/HCC [facility]HS/[facility]) documented in this encounter Results * Complete PFT (pre/post [place], Lung Vol, Diff Capacity) (505[address], 773[address], [address], [address]923) (11/28/2023 10:00 AM CREWMAN MAIN BATTLE TANK) Narrative [facility] - 11/28/2023 10:00 AM CREWMAN MAIN BATTLE TANK Torri Hernández MD ? 11/28/2023 ??8:45 PM ?? [facility] PULMONARY FUNCTION TEST REPORT Natan Patel [...] normal. TORRI HERNÁNDEZ MD us Candis Bee ANESTHESIA TECHNICIAN PFT ORDERABLES Final Result [facility] [address] [place] [address], documented in this encounter Visit Diagnoses Diagnosis Mild emphysema (CMS/HCC HHS/HCC) Other emphysema documented in this encounter Administered Medications Inactive Administered Medications - up to 3 most recent administrations Medication Order MAR Action Action Date Dose Rate Site albuterol sulfate HFA 108 (90 Base) MCG/ACT inhaler 2 puff 2 puff, Inhalation, Once, 1 dose, On Mon11/28/23 at 1015 Given 11/28/2023 10:29 AM CREWMAN MAIN BATTLE TANK 2 puffs documented in this encounter Additional Health Concerns Assessment Noted Time PHQ-9 Depression Total Score: 0 01/24/20 8:04 AM CDT documented as of this encounter Care Teams Classified Advertising Supervisor Relationship Specialty Start Date End Date Candis Bee, BETTY [address] [address], [address] [place] [address] PCP - General Nurse Practitioner Family 02/10/2301/04 documented as of this encounter
--- OUTSIDE RECORDS SUMMARY | 2024-11-02 09:12 | XMS_ITS | Encounter Summary ---
Author Organization [facility] Address [address] [place] [address]. [place], [place] [address] [place] [address] Care Team Providers Care Marine Engine Driver Name Role Phone Candis Bee NP Primary Care Provider [phone] Reason for Referral * Imaging (Routine) - Closed Specialty Diagnoses / Procedures Referred By Shelby t Referred To Contact Diagnoses Atrial fibrillation, unspecified type ([facility]) Procedures CLINIC - OUTPATIENT EVENT RECORDER (ECG) UP TO 30 DAYS COMPLETE ([place]ter) [place] [address] [address], [address] [place] [address] Phone: tel: fax: [facility] [address] [address] Phone: tel: fax: Referral ID Status Reason Start Date Expiration Date Visits Re quested Visits Authorized [id number] Closed 08/08/2023 08/08/2024 1 1 Encounter Details Date Type Department Care Team (Late st Contact Info) Description 08/08/2023 Orders Only [facility], [place] [id number] [place] [address] [address], [address] [place] [address] Social History Tobacco Use Types Packs/Day Years [...] on file Legal Sex Male 9:58 PM HARP ACTION ASSEMBLER Gender Identity Not on file Sexual Orientation Not on file documented as of this encounter Functional Status * RETIRED Are you deaf or do you have serious difficulty hearing Answer Date of Assessment Author Status No 10/02/2021 12:38 PM HARP ACTION ASSEMBLER Acti ve * RETIRED Are you blind or do you have serious difficulty seeing, even when wearing glasses? Answer Date of Assessment Author Status No 10/02/2021 12:38 PM HARP ACTION ASSEMBLER Acti ve * Do you have serious difficulty walking or climbing stairs? Answer Date of Assessment Author Status No 10/02/2021 12:38 PM HARP ACTION ASSEMBLER Annette Jorge R N Active * Do you have difficulty dressing or bathing? Answer Date of Assessment Author Status No 10/02/2021 12:38 PM HARP ACTION ASSEMBLER Annette Jorge R N Active * Because of a physical, mental, or emotional condition, do you have difficulty doing errands alone such as visiting a doctor's office or shopping? Answer Date of Assessment Author Status No 10/02/2021 12:38 PM HARP ACTION ASSEMBLER Annette Jorge R N Active documented as of this encounter Mental Status * Because of a physical, mental, or emotional condition, do you have serious difficulty concentrating, remembering, or making decisions? Answer Entry Date Author Status No 10/02/2021 12:38 PM HARP ACTION ASSEMBLER Annette Jorge R N Active documented in this encounter Plan of Treatment Upcoming Encounters Date Type Department Care Team (Late st Contact Info) Description 01/27/2025 7:00 AM CDT Office Visit [facility] Family & Internal Medicine [facility] [address] [place] [address] [place] [address] [place] [address] 10/22/2025 9:15 AM HARP ACTION ASSEMBLER Office Visit [facility] [address] Mily Gan MD [facility]. [facility] [address] [place] [address] documented as of this encounter [...] 30 DAYS COMPLETE (Holter) (09/19/2023 10:22 AM HARP ACTION ASSEMBLER) Narrative [facility] - 09/19/2023 10:22 AM HARP ACTION ASSEMBLER [place], [place] ??[address] Phone: ?? Fax: ?? TERMITE TREATER HELPER REPORT PATIENT NAME: ??Natan Patel : ??1955 PCP: ??CANDIS BEE NP INTERPRETING ICE PLANT OPERATOR: ??Mily Gan MD INDICATION: ??Unspecified atrial fibrillation [...] CV VASCULAR ORDERABLES Final R esult [facility] documented in this encounter Visit Diagnoses Diagnosis Atrial fibrillation, unspecified type ([facility])- Primary Atrial fibrillation, unspecified type ([facility]) documented in this encounter Additional Health Concerns Assessment Noted Time PHQ-9 Depression Total Score: 0 01/24/20 23 8:04 AM CDT documented as of this encounter Care Teams Marine Engine Driver Relationship Specialty [place] [address] [facility], [address] [place] [address] PCP - General Nurse Practitioner Family 02/10/2301/04 documented as of this encounter
--- OUTSIDE RECORDS SUMMARY | 2024-11-02 09:12 | XMS_ITS | Encounter Summary ---
Author Organization [facility] Address [address] [place] [address]. [place], [place] [address] [place] [address] Care Team Providers Care Video Game Producer Name Role Phone Candis Bee NP Primary Care Provider [phone] Encounter Details Date Type Department Care Team (Latest Contact Info) Description 07/21/2023 12:39 PM CDT - 07/21/2023 11:59 PM CDT Hospital Encounter [facility] [address] [facility] [place], [place] [phone] [place] [address] [facility], [address] [place], [place] [id number] Discharge Disposition: Home or Self Care (Routine [...] on file Legal Sex Male 9:58 PM MENS LOCKER ROOM ATTENDANT Gender Identity Not on file Sexual Orientation Not on file documented as of this encounter Functional Status * RETIRED Are you deaf or do you have serious difficulty hearing Answer Date of Assessment Author Status No 10/02/2021 12:38 PM MENS LOCKER ROOM ATTENDANT Acti ve * RETIRED Are you blind or do you have serious difficulty seeing, even when wearing glasses? Answer Date of Assessment Author Status No 10/02/2021 12:38 PM MENS LOCKER ROOM ATTENDANT Acti ve * Do you have serious difficulty walking or climbing stairs? Answer Date of Assessment Author Status No 10/02/2021 12:38 PM MENS LOCKER ROOM ATTENDANT Annette Jorge R N Active * Do you have difficulty dressing or bathing? Answer Date of Assessment Author Status No 10/02/2021 12:38 PM MENS LOCKER ROOM ATTENDANT Annette Jorge R N Active * Because of a physical, mental, or emotional condition, do you have difficulty doing errands alone such as visiting a doctor's office or shopping? Answer Date of Assessment Author Status No 10/02/2021 12:38 PM MENS LOCKER ROOM ATTENDANT Annette Jorge R N Active [...] Family & Internal Medicine [facility] [address] [place] [address] [place] [address] [place] [address] 10/22/2025 9:15 AM MENS LOCKER ROOM ATTENDANT Office Visit [facility] [address] Mily Gan MD [address] [address] documented as of this encounter Goals Goal [...] - 100 NG/ML 07/24/2023 6:58 PM CDT [facility] Comment: ? INTERPRETATION ? DEFICIENT ??<20 ? INSUFFICIENT 20-29 ?SUFFICIENT 30-100 07/21/2023 8:26 AM CDT Candis Bee NP LABORATORY Final Result [facility] [address] [place] [address], * (ABNORMAL) VITAMIN B12 / FOLATE (07/21/2023 8:26 AM CDT) VITAMIN B12 S/P/B 1,285(H) 193 - 986 PG/ML 07/21/2023 2:03 PM CDT [facility] FOLATE >20.0 8.6 - 58.9 NG/ML 07/21/2023 2:03 PM CDT [facility] 07/21/2023 8:26 AM CDT Candis Bee NP LABORATORY Final Result [facility] [address] [place] [address], * LIPID PANEL (07/21/2023 8:26 AM CDT) CHOLESTEROL 162 <200.0 MG/DL 07/21/2023 2:03 PM CDT [facility] TRIGLYCERIDES 69 <150 MG/DL 07/21/2023 2:03 PM T [facility] HDL 53 >40.0 MG/DL 07/21/2023 2:03 PM T [facility] LDL (CALCULATED) 95 <100 MG/DL 07/21/20 2:03 PM T [facility] NON HDL CHOLESTEROL 109 <130 MG/DL 07/21 2:03 PM T [facility] CHOL/HDL RATIO 3.1 0.0 - 4.5 07/21/2023 2:03 PM T [facility] VLDL CALCULATION 14 5 - 55 MG/DL 07/21/2023 2:03 PM T [facility] LIPID INTERPRETATION 07/21/2023 2:03 PM T [facility] Comment: NIH CONCENSUS REPORT RECOMMENDATIONS: ?ADULT [...] us Candis Bee NP LABORATORY Final Result [facility] [address] [place] [address], * COMPREHENSIVE METABOLIC PANEL (07/21/2023 8:26 AM CDT) GLUCOSE 99 70 - 99 MG/DL 07/21/2023 2:03 PM [facility] BUN 14 7 - 18 MG/DL 07/21/2023 2:03 PM [facility] CREATININE S/P/B 0.82 0.7 - 1.3 MG/DL 07/21/2023 2:03 PM [facility] SODIUM S/P/B 142 136 - 145 MMOL/L 07/21/2023 2:03 PM [facility] POTASSIUM S/P/B 5.1 3.5 - 5.1 MMOL/L 07/21/2023 2:03 PM [facility] CHLORIDE S/P/B 104 100 - 108 MMOL/L 07/21/2023 2:03 PM [facility] CO2 30.5 21 - 32 MMOL/L 07/21/2023 2:03 PM [facility] CALCIUM S/P/B 8.7 8.5 - 10.1 MG/DL 07/21/2023 2:03 PM [facility] BILIRUBIN TOTAL S/P/B 0.9 0.2 - 1.2 MG/DL 07/21/2023 2:03 PM [facility] TOTAL PROTEIN S/P/B 7.5 6.4 - 8.2 G/DL 07/21/2023 2:03 PM [facility] ALBUMIN S/P/B 4.0 3.4 - 5.0 G/DL 07/21/2023 2:03 PM [facility] AST 19 15 - 37 U/L 07/21/2023 2:03 PM [facility] ALT 32 16 - 60 U/L 07/21/2023 2:03 PM [facility] ALKALINE PHOSPHATASE S/P/B 60 50 - 136 U/L 07/21/2023 2:03 PM CDT [facility] ANION GAP 7.5 5 - 15 MMOL/L 07/21/2023 2:03 PM CDT [facility] BUN CREATININE RATIO 17.1 6 - 26 07/21/2023 2:03 PM CDT [facility] A/G RATIO 1.1 1.0 - 2.0 RATIO 07/21/2023 2:03 PM CDT [facility] GFR ESTIMATE >90 >90 ML/MIN/1.7 3 M2 07/21/2023 2:03 PM CDT [facility] Comment: [...] us Candis Bee NP LABORATORY Final Result [facility] [address] [place] [address], [place] [phone] * (ABNORMAL) CBC W/DIFF AUTOMATED (07/21/2023 8:26 AM CDT) WBC 5.51 4.4 - 11.0 x10'3/uL 07/21/2023 1:05 PM CDT [facility] RBC 4.50 4.50 - 5.90 x10'6/uL 07/21/2023 1:05 PM CDT [facility] HGB 14.5 14.0 - 17.5 G/DL 07/21/2023 1:05 PM CDT [facility] HCT 42.9 41.5 - 50.4 % 07/21/2023 1:05 PM CDT [facility] MCV 95.3 80.0 - 96.0 FL 07/21/2023 1:05 PM T [facility] MCH 32.2(H) 26.5 - 31.4 PG 07/21/2023 1:05 PM [facility] MCHC 33.8 31.9 - 34.8 G/DL 07/21/2023 1:05 PM [facility] RDW 12.9 12.3 - 14.3 % 07/21/2023 1:05 PM [facility] PLT 241 151 - 353 x10'3/uL 07/21/2023 1:05 PM [facility] MPV 11.0 9.7 - 11.9 FL 07/21/2023 1:05 PM [facility] RBC MORPHOLOGY NORMAL 07/21/2023 1:05 PM [facility] PLT MORPH. NORMAL 07/21/2023 1:05 PM [facility] WBC MORPHOLOGY NORMAL 07/21/2023 1:05 PM [facility] LYMPHOCYTES % 33.8 15.8 - 45.0 % 07/21/2023 1:05 PM [facility] NEUTROPHILS % 51.6 42.1 - 71.9 % 07/21/2023 1:05 PM [facility] MONOCYTES % 11.3 5.7 - 12.5 % 07/21/2023 1:05 PM [facility] EOSINOPHILS 2.0 0.0 - 5.6 % 07/21/2023 1:05 PM [facility] BASOPHILS 1.1 0.0 - 1.3 % 07/21/2023 1:05 PM [facility] ABS. NEUTROPHILS 2.85 1.40 - 6.00 x10'3/uL 07/21/2023 1:05 PM CDT [facility] IMMATURE GRANS % 0.2 0.0 - 0.5 % 07/21/2023 1:05 PM CDT [facility] ABS. LYMPHOCYTES 1.86 0.80 - 4.70 x10'3/uL 07/21/2023 1:05 PM CDT [facility] 07/21/2023 8:26 AM CDT us Candis Bee NP LABORATORY Final Result [facility] [address] [place] [address], documented in this encounter Visit Diagnoses Diagnosis [...] documented as of this encounter Care Teams Video Game Producer Relationship Specialty [place] [address] [address], [address] [place] [address] PCP - General Nurse Practitioner Family 02/10/2301/04 documented as of this encounter
--- OUTSIDE RECORDS SUMMARY | 2024-11-02 09:12 | XMS_ITS | Encounter Summary ---
Author Organization [facility] Address [address] [place] [address]. [place], [place] [address] [place] [address] Care Team Providers Care Slater Apprentice Name Role Phone AkashCandis hedrick BETTY Primary Care Provider [phone] Reason for Visit * Reason Onset Date Comments Referral 07/28/2023 Encounter Details Date Type Department Care Team (Late st Contact Info) Description 07/28/2023 Telephone [facility] [address] [place] [address] Cardiology, Physician Referral Social History [...] on file Legal Sex Male 9:58 PM MOLDER FLOOR Gender Identity Not on file Sexual Orientation Not on file documented as of this encounter Functional Status * RETIRED Are you deaf or do you have serious difficulty hearing Answer Date of Assessment Author Status No 10/02/2021 12:38 PM MOLDER FLOOR Acti ve * RETIRED Are you blind or do you have serious difficulty seeing, even when wearing glasses? Answer Date of Assessment Author Status No 10/02/2021 12:38 PM MOLDER FLOOR Acti ve * Do you have serious difficulty walking or climbing stairs? Answer Date of Assessment Author Status No 10/02/2021 12:38 PM MOLDER FLOOR Annette Jorge, R N Active * Do you have difficulty dressing or bathing? Answer Date of Assessment Author Status No 10/02/2021 12:38 PM MOLDER FLOOR Annette Jorge, R N Active * Because of a physical, mental, or emotional condition, do you have difficulty doing errands alone such as visiting a doctor's office or shopping? Answer Date of Assessment Author Status No 10/02/2021 12:38 PM MOLDER FLOOR Annette Jorge, R N Active documented as of this encounter Mental Status * Because of a physical, mental, or emotional condition, do you have serious difficulty concentrating, remembering, or making decisions? Answer Entry Date Author Status No 10/02/2021 12:38 PM MOLDER FLOOR Annette Jorge, R N Active documented in [...] Family & Internal Medicine [facility] [address] [place] [address] [place] [address] [place] [address] 10/22/2025 9:15 AM MOLDER FLOOR Office Visit [facility] [address] [place] [address] Mily Gan MD [facility] [address] [place] [address] documented as of this encounter Goals Goal [...] documented as of this encounter Care Teams Slater Apprentice Relationship Specialty [place] [address] [address], [address] [place] [address] PCP - General Nurse Practitioner Family 02/10/2301/04 documented as of this encounter
--- OUTSIDE RECORDS SUMMARY | 2024-11-02 09:12 | XMS_ITS | Encounter Summary ---
Author Organization [facility] Address [address] [place] [address]. [place], [place] [address] [place] [address] Care Team Providers Care Real Time Analyst Name Role Phone Candis Bee NP Primary Care Provider [phone] Reason for Visit * Reason Onset Date Comments Medication Request 08/23/2023 Encounter Details Date Type Department Care Team (Late st Contact Info) Description 08/23/2023 Telephone [facility] Family & Internal Medicine [facility] [address] [place] [address] [place] [address] [facility], [address] [place] [address] Medication Request Social History Tobacco [...] on file Legal Sex Male 9:58 PM LINOTYPE MACHINIST APPRENTICE Gender Identity Not on file Sexual Orientation Not on file documented as of this encounter Functional Status * RETIRED Are you deaf or do you have serious difficulty hearing Answer Date of Assessment Author Status No 10/02/2021 12:38 PM LINOTYPE MACHINIST APPRENTICE Acti ve * RETIRED Are you blind or do you have serious difficulty seeing, even when wearing glasses? Answer Date of Assessment Author Status No 10/02/2021 12:38 PM LINOTYPE MACHINIST APPRENTICE Acti ve * Do you have serious difficulty walking or climbing stairs? Answer Date of Assessment Author Status No 10/02/2021 12:38 PM LINOTYPE MACHINIST APPRENTICE Annette Jorge, R N Active * Do you have difficulty dressing or bathing? Answer Date of Assessment Author Status No 10/02/2021 12:38 PM LINOTYPE MACHINIST APPRENTICE Annette Jorge, R N Active * Because of a physical, mental, or emotional condition, do you have difficulty doing errands alone such as visiting a doctor's office or shopping? Answer Date of Assessment Author Status No 10/02/2021 12:38 PM LINOTYPE MACHINIST APPRENTICE Annette Jorge, R N Active documented as of this encounter Mental Status * Because of a physical, mental, or emotional condition, do you have serious difficulty concentrating, remembering, or making decisions? Answer Entry Date Author Status No 10/02/2021 12:38 PM LINOTYPE MACHINIST APPRENTICE Annette Jorge, R N Active documented in this encounter Progress Notes * Aamir Cruz RN - 08/23/2023 2:09 PM CDT Script sent to mail order. * Marilu Epstein LPN - 08/23/2023 1:35 PM CDT Please send a 90 day supply of metoprolol succinate ER (TOPROL-XL) 25 MG 24 hr tablet To [facility] he picked up 30 day local pharm and that canceled out the mail order pharm So will need a new order sent to [facility] in 25 days please [phone] documented in this encounter Plan of Treatment Upcoming Encounters Date Type Department Care Team (Late st Contact Info) Description 01/27/2025 7:00 AM CDT Office Visit [facility] Family & Internal Medicine [facility] [address] [place] [address] [place] [address] [place], [place] [phone] 10/22/2025 9:15 AM LINOTYPE MACHINIST APPRENTICE Office Visit [facility] [address] Mily Gan MD [place] [address] [place], [place] [phone] documented as of this encounter Goals Goal [...] documented as of this encounter Care Teams Real Time Analyst Relationship Specialty [place] [address] [facility], [address] [place] [address] PCP - General Nurse Practitioner Family 02/10/2301/04 documented as of this encounter
--- OUTSIDE RECORDS SUMMARY | 2024-11-02 09:12 | XMS_ITS | Encounter Summary ---
Author Organization [facility] Address [address] [place] [address]. [place], [place] [address] [place] [address] Care Team Providers Care Contact Agent Name Role Phone Candis Bee NP Primary Care Provider [phone] Reason for Visit * Reason Onset Date Comments Record Request 08/07/2023 Encounter Details Date Type Department Care Team (Late st Contact Info) Description 08/07/2023 Telephone [facility] Family & Internal Medicine [facility] [address] [place] [address] [place] [address] [facility] [address] [place] [address] Record Request Social History Tobacco [...] file Legal Sex Male 9:58 PM CUSTOMER SUPPORT ASSISTANT Gender Identity Not on file Sexual Orientation Not on file documented as of this encounter Functional Status * RETIRED Are you deaf or do you have serious difficulty hearing Answer Date of Assessment Author Status No 10/02/2021 12:38 PM CUSTOMER SUPPORT ASSISTANT Acti ve * RETIRED Are you blind or do you have serious difficulty seeing, even when wearing glasses? Answer Date of Assessment Author Status No 10/02/2021 12:38 PM CUSTOMER SUPPORT ASSISTANT Acti ve * Do you have serious difficulty walking or climbing stairs? Answer Date of Assessment Author Status No 10/02/2021 12:38 PM CUSTOMER SUPPORT ASSISTANT Annette Jorge, R N Active * Do you have difficulty dressing or bathing? Answer Date of Assessment Author Status No 10/02/2021 12:38 PM CUSTOMER SUPPORT ASSISTANT Annette Jorge, R N Active * Because of a physical, mental, or emotional condition, do you have difficulty doing errands alone such as visiting a doctor's office or shopping? Answer Date of Assessment Author Status No 10/02/2021 12:38 PM CUSTOMER SUPPORT ASSISTANT Annette Jorge, R N Active documented as of this encounter Mental Status * Because of a physical, mental, or emotional condition, do you have serious difficulty concentrating, remembering, or making decisions? Answer Entry Date Author Status No 10/02/2021 12:38 PM CUSTOMER SUPPORT ASSISTANT Annette Jorge, R N Active documented in this encounter Progress Notes * Bharti Garsia MA - 08/08/2023 8:53 AM CDT Received and sent to PCP * Bharti Garsia MA - 08/07/2023 1:52 PM CDT I have faxed [facility] in [facility] for sleep study records documented in this encounter Plan of Treatment Upcoming Encounters Date Type Department Care Team (Late st Contact Info) Description 01/27/2025 7:00 AM CDT Office Visit [facility] Family & Internal Medicine [facility] [address] [place] [address] [place] [address] [place] [address] 10/22/2025 9:15 AM CUSTOMER SUPPORT ASSISTANT Office Visit [facility] [address] Mily Gan MD [place] [address] [place], [place] [phone] documented as of this encounter Goals Goal [...] documented as of this encounter Care Teams Contact Agent Relationship Specialty [place] [address] [facility], [address] [place] [address] PCP - General Nurse Practitioner Family 02/10/2301/04 documented as of this encounter
--- OUTSIDE RECORDS SUMMARY | 2024-11-02 09:12 | XMS_ITS | Encounter Summary ---
Author Organization [facility] Address [address] [place] [address]. [place] [address] [place] [address] Care Team Providers Care Forestry Aid Name Role Phone AkashCandis hedrick BETTY Primary Care Provider [phone] Reason for Visit * Reason Onset Date Comments Consult 08/08/2023 Encounter Details Date Type Department Care Team ([facility] st Contact Info) Description 08/08/[address] [address] Caitlin Giraldo, RMA Consult Social History Tobacco [...] on file Legal Sex Male 9:58 PM NIP WRAPPER Gender Identity Not on file Sexual Orientation Not on file documented as of this encounter Functional Status * RETIRED Are you deaf or do you have serious difficulty hearing Answer Date of Assessment Author Status No 10/02/2021 12:38 PM NIP WRAPPER Acti ve * RETIRED Are you blind or do you have serious difficulty seeing, even when wearing glasses? Answer Date of Assessment Author Status No 10/02/2021 12:38 PM NIP WRAPPER Acti ve * Do you have serious difficulty walking or climbing stairs? Answer Date of Assessment Author Status No 10/02/2021 12:38 PM NIP WRAPPER Annette Jorge, R N Active * Do you have difficulty dressing or bathing? Answer Date of Assessment Author Status No 10/02/2021 12:38 PM NIP WRAPPER Annette Jorge, R N Active * Because of a physical, mental, or emotional condition, do you have difficulty doing errands alone such as visiting a doctor's office or shopping? Answer Date of Assessment Author Status No 10/02/2021 12:38 PM NIP WRAPPER Annette Jorge, R N Active documented as of this encounter Mental Status * Because of a physical, mental, or emotional condition, do you have serious difficulty concentrating, remembering, or making decisions? Answer Entry Date Author Status No 10/02/2021 12:38 PM NIP WRAPPER Annette Jorge, R N Active documented in this encounter Progress Notes * POLLY Lund - 08/08/2023 11:44 AM CDT [facility] has made several attempts to reach patient [...] & Internal Medicine [facility] [address] [place] [address] [place] [address] [place] [address] 10/22/2025 9:15 AM NIP WRAPPER Office Visit [facility] [address] [place] [address] Mily Gan MD [facility] [address] [place] [address] documented as of this encounter Goals Goal [...] documented as of this encounter Care Teams Forestry Aid Relationship Specialty [place] [address], [address] [place] [address] PCP - General Nurse Practitioner Family 02/10/2301/04 documented as of this encounter
--- OUTSIDE RECORDS SUMMARY | 2024-11-02 09:12 | XMS_ITS | Encounter Summary ---
Author Organization [facility] Address [address] [place] [address]. [place] [address] [place] [address] Care Team Providers Care Gin Feeder Name Role Phone Candis Bee NP Primary Care Provider [phone] Reason for Referral * Procedure (Routine) - Closed Specialty Diagnoses / Procedures Referred By Contnidhi t Referred To Contact Diagnoses Mild emphysema ([facility]) Procedures Complete PFT (pre/post [place], Lung Vol, Diff Capacity) (60146, 41380, 83971, 43391) [place] [address] [address], [address] [place] [address] Phone: tel: fax: Referral ID Status Reason Start Date Expiration Date Visits Re quested Visits Authorized [id number] Closed 08/04/2023 09/03/2024 1 1 Encounter Details Date Type Department Care Team (Late st Contact Info) Description 08/04/2023 Orders Only [facility] Medical Group Family & Internal Medicine - [address] [address] [place] [address] [address], [address] [place] [address] Social History Tobacco Use Types [...] on file Legal Sex Male 9:58 PM MOSAIC WORKER Gender Identity Not on file Sexual Orientation Not on file documented as of this encounter Functional Status * RETIRED Are you deaf or do you have serious difficulty hearing Answer Date of Assessment Author Status No 10/02/2021 12:38 PM MOSAIC WORKER Acti ve * RETIRED Are you blind or do you have serious difficulty seeing, even when wearing glasses? Answer Date of Assessment Author Status No 10/02/2021 12:38 PM MOSAIC WORKER Acti ve * Do you have serious difficulty walking or climbing stairs? Answer Date of Assessment Author Status No 10/02/2021 12:38 PM MOSAIC WORKER Annette Jorge R N Active * Do you have difficulty dressing or bathing? Answer Date of Assessment Author Status No 10/02/2021 12:38 PM MOSAIC WORKER Annette Jorge R N Active * Because of a physical, mental, or emotional condition, do you have difficulty doing errands alone such as visiting a doctor's office or shopping? Answer Date of Assessment Author Status No 10/02/2021 12:38 PM MOSAIC WORKER Annette Jorge R N Active documented [...] Description 01/27/2025 7:00 AM CDT Office Visit [facility] Medical Group Family & Internal Medicine - [place] [address] [place] [address] [place] [address] [place] [address] 10/22/2025 9:15 AM MOSAIC WORKER Office Visit [facility] [address] Mily Gan MD [facility]. [place] [address] [place] [address] documented as of this encounter [...] PFT (pre/post [place], Lung Vol, Diff Capacity) (81152, 47665, 95370, 78984) (11/28/2023 10:00 AM MOSAIC WORKER) Narrative [facility] - 11/28/2023 10:00 AM MOSAIC WORKER Jose Eduardo Headley MD ? 11/28/2023 ??8:45 PM ?? [facility] PULMONARY FUNCTION TEST REPORT Natan Patel INTERPRETATION [...] Candis Bee NP PFT ORDERABLES Final Result [facility] [address] [place] [address], documented in this encounter Visit Diagnoses Diagnosis Mild emphysema ([facility] HHS/HCC)- Primary Other emphysema Mild emphysema ([facility] HHS/HCC) Other emphysema documented in this encounter Additional Health Concerns Assessment Noted Time PHQ-9 Depression Total Score: 0 01/24/20 23 8:04 AM CDT documented as of this encounter Care Teams Gin Feeder Relationship Specialty [place] [address] [address], [address] [place], [place] [phone] PCP - General Nurse Practitioner Family 02/10/2301/04 documented as of this encounter
--- OUTSIDE RECORDS SUMMARY | 2024-11-02 09:12 | XMS_ITS | Encounter Summary ---
Author Organization [facility] Address [address] [place] [address]. [place], [place] [address] [place] [address] Care Team Providers Care Vegetable Loader Machine Operator Name Role Phone AkashCandis hedrick BETTY Primary Care Provider [phone] Encounter Details Date Type Department Care Team [...] on file Legal Sex Male 9:58 PM CASING IN LINE FEEDER Gender Identity Not on file Sexual Orientation Not on file documented as of this encounter Functional Status * RETIRED Are you deaf or do you have serious difficulty hearing Answer Date of Assessment Author Status No 10/02/2021 12:38 PM CASING IN LINE FEEDER Acti ve * RETIRED Are you blind or do you have serious difficulty seeing, even when wearing glasses? Answer Date of Assessment Author Status No 10/02/2021 12:38 PM CASING IN LINE FEEDER Acti ve * Do you have serious difficulty walking or climbing stairs? Answer Date of Assessment Author Status No 10/02/2021 12:38 PM CASING IN LINE FEEDER Annette Jorge R N Active * Do you have difficulty dressing or bathing? Answer Date of Assessment Author Status No 10/02/2021 12:38 PM CASING IN LINE FEEDER Annette Jorge R N Active * Because of a physical, mental, or emotional condition, do you have difficulty doing errands alone such as visiting a doctor's office or shopping? Answer Date of Assessment Author Status No 10/02/2021 12:38 PM CASING IN LINE FEEDER Annette Jorge R N Active documented as of this encounter Mental Status * Because of a physical, mental, or emotional condition, do you have serious difficulty concentrating, remembering, or making decisions? Answer Entry Date Author Status No 10/02/2021 12:38 PM CASING IN LINE FEEDER Annette Jorge R N Active documented in this encounter Plan of Treatment Upcoming Encounters Date Type Department Care Team (Late st Contact Info) Description 01/27/2025 7:00 AM CDT Office Visit [facility] Medical Group Family & Internal Medicine [facility] [address] [place] [address] Ilir Nelson PA [address] [place] [phone] 10/22/2025 9:15 AM CASING IN LINE FEEDER Office Visit [facility] [address] Mily Gan MD [address] [id number] documented as of this encounter Goals Goal [...] documented as of this encounter Care Teams Vegetable Loader Machine Operator Relationship Specialty [place] [address] [facility] [address] [place] [address] PCP - General Nurse Practitioner Family 02/10/2301/04 documented as of this encounter
--- OUTSIDE RECORDS SUMMARY | 2024-11-02 09:12 | XMS_ITS | Encounter Summary ---
Author Organization [facility] Address [address] [place] [address]. [place], [place] [address] [place] [address] Care Team Providers Care Dairy Bar Manager Name Role Phone Candis Bee NP Primary Care Provider [phone] Reason for Visit * Reason Onset Date Comments Holter Monitor 08/14/2023 * Imaging (Routine) - Closed Specialty Diagnoses / Procedures Referred By Shelby jama Referred To Contact Diagnoses Atrial fibrillation, unspecified type ([facility]) Procedures CLINIC - OUTPATIENT EVENT RECORDER (ECG) UP TO 30 DAYS COMPLETE (Holter) [place] [address] [address], [address] [place] [address] Phone: tel: fax: [facility] [address] [address] Phone: tel: fax: Referral ID Status Reason Start Date Expiration Date Visits Re quested Visits Authorized [id number] Closed 08/08/2023 08/08/2024 1 1 Encounter Details Date Type Department Care Team (Late st Contact Info) Description 08/14/2023 5:00 AM CDT Telephone [facility], [address] [phone] [place] [address] [address], [address] [place] [address] Holter Monitor Social History Tobacco Use Types [...] file Legal Sex Male 9:58 PM RN RESOURCE NURSE Gender Identity Not on file Sexual Orientation Not on file documented as of this encounter Functional Status * RETIRED Are you deaf or do you have serious difficulty hearing Answer Date of Assessment Author Status No 10/02/2021 12:38 PM RN RESOURCE NURSE Acti ve * RETIRED Are you blind or do you have serious difficulty seeing, even when wearing glasses? Answer Date of Assessment Author Status No 10/02/2021 12:38 PM RN RESOURCE NURSE Acti ve * Do you have serious difficulty walking or climbing stairs? Answer Date of Assessment Author Status No 10/02/2021 12:38 PM RN RESOURCE NURSE Annette Jorge R N Active * Do you have difficulty dressing or bathing? Answer Date of Assessment Author Status No 10/02/2021 12:38 PM RN RESOURCE NURSE Annette Jorge R N Active * Because of a physical, mental, or emotional condition, do you have difficulty doing errands alone such as visiting a doctor's office or shopping? Answer Date of Assessment Author Status No 10/02/2021 12:38 PM RN RESOURCE NURSE Annette Jorge R N Active documented as of this encounter Mental Status * Because of a physical, mental, or emotional condition, do you have serious difficulty concentrating, remembering, or making decisions? Answer Entry Date Author Status No 10/02/2021 12:38 PM RN RESOURCE NURSE Annette Jorge R N Active documented [...] Order referral under Unspecified atrial fibrillation. Thanks RESOURCE NURSE * Eric Reed, Marine Electrician Helper - 08/14/2023 9:14 AM CDT Day BG sent to patient. Fedex out [id number] Fedex in [id number] 30 days documented in this encounter Plan of Treatment Upcoming Encounters Date Type Department Care Team (Late st Contact Info) Description 01/27/2025 7:00 AM CDT Office Visit [facility] Family & Internal Medicine - [place] [address] [place] [address] [place] [address] [place] [address] 10/22/2025 9:15 AM RN RESOURCE NURSE Office Visit [facility] [address] Mily Gan MD [address] [address] documented as of this encounter Goals Goal Patient Goal Type Associated Problems Recent Progress Patient-Stated? Author Establish Plan for Symptom Monitoring General No Jesi Cochran RN Monitor - demonstrates appropriate technique of care of indwelling urinary catheter and new ostomy General No Jesi Cochran RN Patient will return to prior living situation and remain independent in ADLs upon discharge from [facility] General No Aliya Stokes RN documented as of this encounter Procedures Procedure Name Priority Date/Time Associated Diagnosis Comments EVENT RECORDER (ECG) UP TO 30 DAYS COMPLETE Routine 09/19/2023 10:22 AM RN RESOURCE NURSE Atrial fibrillation, unspecified type ([facility] H[facility]/HCC) documented in this encounter Results * CLINIC - OUTPATIENT EVENT RECORDER (ECG) UP TO 30 DAYS COMPLETE (Holter) (09/19/2023 10:22 AM RN RESOURCE NURSE) Narrative [facility] - 09/19/2023 10:22 AM RN RESOURCE NURSE [place], [place] ??[address] Phone: ?? Fax: ?? QUILLER MACHINE FIXER REPORT PATIENT NAME: ??Natan Patel : ??1955 PCP: ??CANDIS BEE NP INTERPRETING COIN ROLLING MACHINE OPERATOR: ??Mily Gan MD INDICATION: ??Unspecified atrial [...] Visit Diagnoses Diagnosis Atrial fibrillation, unspecified type ([facility]) documented in this encounter Additional Health Concerns Assessment Noted Time PHQ-9 Depression Total Score: 0 01/24/20 23 8:04 AM CDT documented as of this encounter Care Teams Dairy Bar Manager Relationship Specialty [place] [address] [address], [address] [place] [address] PCP - General Nurse Practitioner Family 02/10/2301/04 documented as of this encounter
--- OUTSIDE RECORDS SUMMARY | 2024-11-02 09:12 | XMS_ITS | Encounter Summary ---
Author Organization [facility] Address [address] [place] [address]. [place], [place] [address] [place] [address] Care Team Providers Care Applications Development Consultant Name Role Phone Candis Bee NP Primary Care Provider [phone] Reason for Visit * Reason Onset Date Comments Other 08/07/2023 Holter monitor Encounter Details Date Type Department Care Team (Late st Contact Info) Description 08/07/2023 Telephone [facility] Family & Internal Medicine [facility] [address] [place] [address] [place] Bee [place] [phone] [place] [address] [address] [place] [address] Other (Holter monitor ) Social [...] on file Legal Sex Male 9:58 PM DURABLE MEDICAL EQUIPMENT TECHNICIAN Gender Identity Not on file Sexual Orientation Not on file documented as of this encounter Functional Status * RETIRED Are you deaf or do you have serious difficulty hearing Answer Date of Assessment Author Status No 10/02/2021 12:38 PM DURABLE MEDICAL EQUIPMENT TECHNICIAN Acti ve * RETIRED Are you blind or do you have serious difficulty seeing, even when wearing glasses? Answer Date of Assessment Author Status No 10/02/2021 12:38 PM DURABLE MEDICAL EQUIPMENT TECHNICIAN Acti ve * Do you have serious difficulty walking or climbing stairs? Answer Date of Assessment Author Status No 10/02/2021 12:38 PM DURABLE MEDICAL EQUIPMENT TECHNICIAN Annette Jorge R N Active * Do you have difficulty dressing or bathing? Answer Date of Assessment Author Status No 10/02/2021 12:38 PM DURABLE MEDICAL EQUIPMENT TECHNICIAN Annette Jorge R N Active * Because of a physical, mental, or emotional condition, do you have difficulty doing errands alone such as visiting a doctor's office or shopping? Answer Date of Assessment Author Status No 10/02/2021 12:38 PM DURABLE MEDICAL EQUIPMENT TECHNICIAN Annette Jorge R N Active documented as of this encounter Mental Status * Because of a physical, mental, or emotional condition, do you have serious difficulty concentrating, remembering, or making decisions? Answer Entry Date Author Status No 10/02/2021 12:38 PM DURABLE MEDICAL EQUIPMENT TECHNICIAN Annette Jorge, R N Active documented in this encounter Progress Notes * Aamir Cruz RN - 08/08/2023 11:54 AM CDT Patient to wear 30 day event monitor per pcp office note. * Marilu Epstein LPN - 08/07/2023 3:28 PM CDT Caitlin messer from [facility] called [facility]ITA How long is pt to wear Holter monitor May call or team answer [phone] documented in this encounter Plan of Treatment Upcoming Encounters Date Type Department Care Team (Late st Contact Info) Description 01/27/2025 7:00 AM CDT Office Visit [facility] Family & Internal Medicine [facility] [address] [place] [address] [place] [address] [place] [address] 10/22/2025 9:15 AM DURABLE MEDICAL EQUIPMENT TECHNICIAN Office Visit [facility] [address] Mily Gan MD [place] [address] [place] [address] documented as of this encounter [...] documented as of this encounter Care Teams Applications Development Consultant Relationship Specialty [place] [address] [facility], [address] [place] [address] PCP - General Nurse Practitioner Family 02/10/2301/04 documented as of this encounter
--- OUTSIDE RECORDS SUMMARY | 2024-11-02 09:12 | XMS_ITS | Encounter Summary ---
Author Organization [facility] Address [address] [place] [address]. [place], [place] [address] [place] [address] Care Team Providers Care Filament Wound Parts Fabricator Name Role Phone AkashCandis hedrick BETTY Primary Care Provider [phone] Encounter Details Date Type Department Care Team [...] on file Legal Sex Male 9:58 PM SOURCING ANALYST Gender Identity Not on file Sexual Orientation Not on file documented as of this encounter Functional Status * RETIRED Are you deaf or do you have serious difficulty hearing Answer Date of Assessment Author Status No 10/02/2021 12:38 PM SOURCING ANALYST Acti ve * RETIRED Are you blind or do you have serious difficulty seeing, even when wearing glasses? Answer Date of Assessment Author Status No 10/02/2021 12:38 PM SOURCING ANALYST Acti ve * Do you have serious difficulty walking or climbing stairs? Answer Date of Assessment Author Status No 10/02/2021 12:38 PM SOURCING ANALYST Annette Jorge R N Active * Do you have difficulty dressing or bathing? Answer Date of Assessment Author Status No 10/02/2021 12:38 PM SOURCING ANALYST Annette Jorge R N Active * Because of a physical, mental, or emotional condition, do you have difficulty doing errands alone such as visiting a doctor's office or shopping? Answer Date of Assessment Author Status No 10/02/2021 12:38 PM SOURCING ANALYST Annette Jorge R N Active documented as of this encounter Mental Status * Because of a physical, mental, or emotional condition, do you have serious difficulty concentrating, remembering, or making decisions? Answer Entry Date Author Status No 10/02/2021 12:38 PM SOURCING ANALYST Annette Jorge R N Active documented in this encounter Plan of Treatment Upcoming Encounters Date Type Department Care Team (Late st Contact Info) Description 01/27/2025 7:00 AM CDT Office Visit [facility] Medical Group Family & Internal Medicine [facility] [address] [place] [address] Ilir Nelson PA [address] [place] [phone] 10/22/2025 9:15 AM SOURCING ANALYST Office Visit [facility] [address] Mily Gan MD [address] [address] documented as of this encounter Goals Goal [...] documented as of this encounter Care Teams Filament Wound Parts Fabricator Relationship Specialty [place] [address] [facility], [address] [place] [address] PCP - General Nurse Practitioner Family 02/10/2301/04 documented as of this encounter
--- OUTSIDE RECORDS SUMMARY | 2024-11-02 09:12 | XMS_ITS | Encounter Summary ---
Author Organization [facility] Address [address] [place] [address]. [place], [place] [address] [place] [address] Care Team Providers Care Spray Drier Operator Name Role Phone Candis Bee NP Primary Care Provider [phone] Reason for Visit * Reason Onset Date Comments Sleep Problem 07/25/2023 Encounter Details Date Type Department Care Team (Late st Contact Info) Description 07/25/2023 Telephone [facility] Medical Group Family & Internal Medicine [facility] [address] [place] [address] [place] [address] [facility], [address] [place] [address] Sleep Problem Social History Tobacco [...] file Legal Sex Male 9:58 PM OFFICE PROFESSIONAL Gender Identity Not on file Sexual Orientation Not on file documented as of this encounter Functional Status * RETIRED Are you deaf or do you have serious difficulty hearing Answer Date of Assessment Author Status No 10/02/2021 12:38 PM OFFICE PROFESSIONAL Acti ve * RETIRED Are you blind or do you have serious difficulty seeing, even when wearing glasses? Answer Date of Assessment Author Status No 10/02/2021 12:38 PM OFFICE PROFESSIONAL Acti ve * Do you have serious difficulty walking or climbing stairs? Answer Date of Assessment Author Status No 10/02/2021 12:38 PM OFFICE PROFESSIONAL Annette Jorge, R N Active * Do you have difficulty dressing or bathing? Answer Date of Assessment Author Status No 10/02/2021 12:38 PM OFFICE PROFESSIONAL Annette Jorge, R N Active * Because of a physical, mental, or emotional condition, do you have difficulty doing errands alone such as visiting a doctor's office or shopping? Answer Date of Assessment Author Status No 10/02/2021 12:38 PM OFFICE PROFESSIONAL Annette Jorge, R N Active documented as of this encounter Mental Status * Because of a physical, mental, or emotional condition, do you have serious difficulty concentrating, remembering, or making decisions? Answer Entry Date Author Status No 10/02/2021 12:38 PM OFFICE PROFESSIONAL Annette Jorge, R N Active documented in [...] Patient had last sleep study done at [facility]. States it is probably right at 10 [...] [facility] Family & Internal Medicine [facility] [address] [place] [address] [place] [address] [place] [address] 10/22/2025 9:15 AM OFFICE PROFESSIONAL Office Visit [facility] [address] [place] [address] Mily Gan MD [facility] [address] [place] [address] documented as of this encounter Goals Goal [...] documented as of this encounter Care Teams Spray Drier Operator Relationship Specialty [place] [address] [address], [address] [place] [address] PCP - General Nurse Practitioner Family 02/10/2301/04 documented as of this encounter
--- OUTSIDE RECORDS SUMMARY | 2024-11-02 09:12 | XMS_ITS | Encounter Summary ---
Author Organization [facility] Address [address] [place] [address]. [place], [place] [id number] [place] [address] Care Team Providers Care Catering Operations Manager Name Role Phone AkashCandis hedrick BETTY Primary Care Provider [phone] Reason for Visit * Reason Onset Date Comments Referral 08/07/2023 Encounter Details Date Type Department Care Team (Late st Contact Info) Description 08/07/2023 Telephone [facility] [address] [place] [address] Cardiology, Physician Referral Social History [...] on file Legal Sex Male 9:58 PM TAXI TRUCK DRIVER Gender Identity Not on file Sexual Orientation Not on file documented as of this encounter Functional Status * RETIRED Are you deaf or do you have serious difficulty hearing Answer Date of Assessment Author Status No 10/02/2021 12:38 PM TAXI TRUCK DRIVER Acti ve * RETIRED Are you blind or do you have serious difficulty seeing, even when wearing glasses? Answer Date of Assessment Author Status No 10/02/2021 12:38 PM TAXI TRUCK DRIVER Acti ve * Do you have serious difficulty walking or climbing stairs? Answer Date of Assessment Author Status No 10/02/2021 12:38 PM TAXI TRUCK DRIVER Annette Jorge R N Active * Do you have difficulty dressing or bathing? Answer Date of Assessment Author Status No 10/02/2021 12:38 PM TAXI TRUCK DRIVER Annette Jorge R N Active * Because of a physical, mental, or emotional condition, do you have difficulty doing errands alone such as visiting a doctor's office or shopping? Answer Date of Assessment Author Status No 10/02/2021 12:38 PM TAXI TRUCK DRIVER Annette Jorge R N Active documented as of this encounter Mental Status * Because of a physical, mental, or emotional condition, do you have serious difficulty concentrating, remembering, or making decisions? Answer Entry Date Author Status No 10/02/2021 12:38 PM TAXI TRUCK DRIVER Annette Jorge, R N Active documented in [...] [facility] [place] [address] [place] [address] [place] [address] [place], [place] [phone] 10/22/2025 9:15 AM TAXI TRUCK DRIVER Office Visit [facility] [address] [place] [address] Mily Gan MD [facility] [address] [place] [address] documented as of this encounter Goals Goal [...] documented as of this encounter Care Teams Catering Operations Manager Relationship Specialty [place] [address] [address], [address] [place] [address] PCP - General Nurse Practitioner Family 02/10/2301/04 documented as of this encounter
--- OUTSIDE RECORDS SUMMARY | 2024-11-02 09:12 | XMS_ITS | Encounter Summary ---
Author Organization [facility] Address [address] [place] [address]. [place], [place] [id number] [place] [address] Care Team Providers Care Rug Backing Stenciler Name Role Phone Candis Bee NP Primary Care Provider [phone] Reason for Referral * (Routine) - Closed Specialty Diagnoses / Procedures Referred By Shelby jama Referred To Contact Diagnoses Neoplasm of uncertain behavior [place] [address] [address], [address] [place] [address] Phone: tel: fax: Referral ID Status Reason Start Date Expiration Date Visits Re quested Visits Authorized [id number] Closed 08/21/2023 08/21/2024 1 1 * (Routine) - Closed Specialty Diagnoses / Procedures Referred By Shelby jama Referred To Contact Diagnoses Neoplasm of uncertain behavior [place] [address] [address], [address] [place] [address] Phone: tel: fax: Referral ID Status Reason Start Date Expiration Date Visits Re quested Visits Authorized [id number] Closed 08/21/2023 08/21/2024 1 1 Reason for Visit * Reason Comments Procedure Shave biopsy x2 Encounter Details Date Type Department Care Team (Late st Contact Info) Description 08/21/2023 8:00 AM CDT Office Visit [facility] [address] [place] [address] [place] [address] [facility], [address] [place] [address] Procedure (Shave biopsy x2) Social [...] on file Legal Sex Male 9:58 PM OFFAL WORKER Gender Identity Not on file Sexual [...] Assessment Author Status No 10/02/2021 12:38 PM OFFAL WORKER Acti ve * RETIRED Are you blind or do you have serious difficulty seeing, even when wearing glasses? Answer Date of Assessment Author Status No 10/02/2021 12:38 PM OFFAL WORKER Acti ve * Do you have serious difficulty walking or climbing stairs? Answer Date of Assessment Author Status No 10/02/2021 12:38 PM OFFAL WORKER Annette Jorge R N Active * Do you have difficulty dressing or bathing? Answer Date of Assessment Author Status No 10/02/2021 12:38 PM OFFAL WORKER Annette Jorge R N Active * Because of a physical, mental, or emotional condition, do you have difficulty doing errands alone such as visiting a doctor's office or shopping? Answer Date of Assessment Author Status No 10/02/2021 12:38 PM OFFAL WORKER Annette Jorge R N Active documented as of this encounter Mental Status * Because of a physical, mental, or emotional condition, do you have serious difficulty concentrating, remembering, or making decisions? Answer Entry Date Author Status No 10/02/2021 12:38 PM OFFAL WORKER Annette Jorge R N Active documented [...] biopsy performed by Federico Mayer MD at [facility] OR COLOSTOMY reversable HERNIA REPAIR Right [facility] HERNIA REPAIR Left [facility] NECK/CHEST PROCEDURE UNLISTED Right [facility], re-built right side of neck. SMALL INTESTINE SURGERY bowel rupture TOTAL KNEE ARTHROPLASTY Bilateral ZANA Partial KR, done @ [facility] Social History Socioeconomic History Marital status: Social [...] the day of the encounter. This includes zhkr-vu-bevk and iul-bsfp-xt-face time I provided on the day of [...] [facility] [address] [place] [address] [place] [address] [place], [place] [phone] 10/22/2025 9:15 AM OFFAL WORKER Office Visit [facility] [address] Mily Gan MD [address] [place] [address] documented as of this encounter [...] 8:42 AM CDT) CLINICAL INFORMATION: None given [facility] [place] PATHOLOGIST (QST PAP) [email or web address] [place] Comment: Casi Morales MD Board Certified in Anatomic Pathology and Clinical Pathology (electronic signature) SOURCE (QST) Skin, back, biopsy [facility] [place] SPEC DESCRIPTION [facility] [place] Comment: Specimen is received in 10% neutral buffered formalin, labeled with multiple patient identifier(s) and consists of one piece from a skin biopsy measuring 0.3 x 0.2 x 0.1 cm, irregular in shape and warren-arriaza in color. The margins are inked green. The specimen is entirely submitted in one cassette(s). ??Gross exam(s) performed at: [facility] ??[address] [id number] ??Monorail Helper: GLADYS TELLEZ MD PRIMARY DIAGNOSIS: [facility] [place] Comment: Small punch biopsy showing predominantly thick keratin and parakeratin (see comment). Comment: [facility] Comment: Additional deeper histologic levels are examined. No epidermis identified. The specimen is too superficial to permit definite diagnosis. Clinical correlation/follow-up is recommended. 08/21/2023 8:42 AM CDT 08/23/2023 12:25 AM CDT Narrative Resulting Agency Comment Performing Organization Information: ?Site ID: [id number] ?Name: [facility] ?Address: [address] [place] [phone] ?Director: Gladys Tellez Candis Bee NP PATHOLOGY/CYTOLOGY ORDERABLES Final Result [facility] - JOAQU[facility]N ORDERS [facility] [address] [place] [address], [place] * TISSUE EXAM BY PATHOLOGIST (08/21/2023 8:42 AM CDT) CLINICAL INFORMATION: None given [facility] PATHOLOGIST (QST PAP) [facility] Comment: Casi Morales MD Board Certified in Anatomic Pathology and Clinical Pathology (electronic signature) SOURCE (QST) Skin, chest, biopsy [facility] SPEC DESCRIPTION [facility] Comment: Specimen is received in 10% neutral [...] in one cassette(s). ??Gross exam(s) performed at: [facility] ??[address] [id number] ??Monorail Helper: GLADYS TELLEZ MD PRIMARY DIAGNOSIS: Inflamed seborrheic keratosis with verrucoid features. 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
--- OUTSIDE RECORDS SUMMARY | 2024-11-02 09:12 | XMS_ITS | Encounter Summary ---
Author Organization [facility] Address [address] [place] [address]. [place], [place] [address] [place] [address] Care Team Providers Care Net Making Supervisor Name Role Phone Candis Bee NP Primary Care Provider [phone] Encounter Details Date Type Department Care Team (Latest Contact Info) Description 07/25/2023 12:48 PM CDT - 07/25/2023 11:59 PM CDT Hospital Encounter [facility] [address] [place], [place] [id number] [place] [address] [facility], [address] [place], [place] [phone] Discharge Disposition: Home or Self Care (Routine [...] on file Legal Sex Male 9:58 PM JAVA ENGINEER Gender Identity Not on file Sexual Orientation Not on file documented as of this encounter Functional Status * RETIRED Are you deaf or do you have serious difficulty hearing Answer Date of Assessment Author Status No 10/02/2021 12:38 PM JAVA ENGINEER Acti ve * RETIRED Are you blind or do you have serious difficulty seeing, even when wearing glasses? Answer Date of Assessment Author Status No 10/02/2021 12:38 PM JAVA ENGINEER Acti ve * Do you have serious difficulty walking or climbing stairs? Answer Date of Assessment Author Status No 10/02/2021 12:38 PM JAVA ENGINEER Annette Jorge R N Active * Do you have difficulty dressing or bathing? Answer Date of Assessment Author Status No 10/02/2021 12:38 PM JAVA ENGINEER Annette Jorge R N Active * Because of a physical, mental, or emotional condition, do you have difficulty doing errands alone such as visiting a doctor's office or shopping? Answer Date of Assessment Author Status No 10/02/2021 12:38 PM JAVA ENGINEER Annette Jorge R N Active documented [...] [facility] [address] [place] [address] [place] [address] [place], [place] [phone] 10/22/2025 9:15 AM JAVA ENGINEER Office Visit [facility] [address] Mily Gan MD [address] [address] documented as of this encounter [...] 1.11 <4.00 NG/ML 07/25/2023 1:37 PM CDT [facility] Comment: Test was performed using the Siemens method. ??Results obtained with other assay methods or kits cannot be used interchangeably with results obtained by the Siemens method. 07/25/2023 8:45 AM CDT us Candis Bee NP LABORATORY Final Result [facility] [address] [place] [address], documented in this encounter Visit Diagnoses Diagnosis Prostate cancer screening Special screening for malignant neoplasm of prostate documented in this encounter Additional Health Concerns Assessment Noted Time PHQ-9 Depression Total Score: 0 01/24/20 23 8:04 AM CDT documented as of this encounter Care Teams Net Making Supervisor Relationship Specialty [place] [address] [address], [address] [place] [address] PCP - General Nurse Practitioner Family 02/10/2301/04 documented as of this encounter
--- OUTSIDE RECORDS SUMMARY | 2024-11-02 09:12 | XMS_ITS | Encounter Summary ---
Author Organization [facility] Address [address] [place] [address]. [place], [place] [address] [place] [address] Care Team Providers Care Child Daycare Worker Name Role Phone AkashCandis hedrick BETTY Primary Care Provider [phone] Encounter Details Date Type Department Care Team [...] file Legal Sex Male 9:58 PM DRY PAN CHARGER Gender Identity Not on file Sexual Orientation [...] Author Status No 10/02/2021 12:38 PM DRY PAN CHARGER Acti ve * RETIRED Are you blind or do you have serious difficulty seeing, even when wearing glasses? Answer Date of Assessment Author Status No 10/02/2021 12:38 PM DRY PAN CHARGER Acti ve * Do you have serious difficulty walking or climbing stairs? Answer Date of Assessment Author Status No 10/02/2021 12:38 PM DRY PAN CHARGER Annette Jorge R N Active * Do you have difficulty dressing or bathing? Answer Date of Assessment Author Status No 10/02/2021 12:38 PM DRY PAN CHARGER Annette Jorge R N Active * Because of a physical, mental, or emotional condition, do you have difficulty doing errands alone such as visiting a doctor's office or shopping? Answer Date of Assessment Author Status No 10/02/2021 12:38 PM DRY PAN CHARGER Annette Jorge R N Active documented as of this encounter Mental Status * Because of a physical, mental, or emotional condition, do you have serious difficulty concentrating, remembering, or making decisions? Answer Entry Date Author Status No 10/02/2021 12:38 PM DRY PAN CHARGER Annette Jorge, R N Active documented in this encounter Plan of Treatment Upcoming Encounters Date Type Department Care Team (Late st Contact Info) Description 01/27/2025 7:00 AM CDT Office Visit [facility] Family & Internal Medicine [address] [address] Ilir [place] PA [address] [place] [phone] 10/22/2025 9:15 AM DRY PAN CHARGER Office Visit [facility] [address] Mily Gan MD [address] [address] documented as of this encounter Goals Goal [...] documented as of this encounter Care Teams Child Daycare Worker Relationship Specialty [place] [address] [address], [address] [place] [address] PCP - General Nurse Practitioner Family 02/10/2301/04 documented as of this encounter
--- OUTSIDE RECORDS SUMMARY | 2024-11-02 09:12 | XMS_ITS | Encounter Summary ---
Author Organization [facility] Address [address] [place] [address]. [place], [place] [address] [place] [address] Care Team Providers Care Crankshaft Grinder Name Role Phone Candis Bee NP Primary Care Provider [phone] Encounter Details Date Type Department Care Team (Late st Contact Info) Description 07/21/2023 8:10 AM CDT Laboratory Only [facility] Family [facility] Internal [facility] [address] [place] [address] [place] [id number] [place] [address] [address] [place] [address] Social History Tobacco Use Types [...] on file Legal Sex Male 9:58 PM BUDGET COORDINATOR Gender Identity Not on file Sexual Orientation Not on file documented as of this encounter Functional Status * RETIRED Are you deaf or do you have serious difficulty hearing Answer Date of Assessment Author Status No 10/02/2021 12:38 PM BUDGET COORDINATOR Acti ve * RETIRED Are you blind or do you have serious difficulty seeing, even when wearing glasses? Answer Date of Assessment Author Status No 10/02/2021 12:38 PM BUDGET COORDINATOR Acti ve * Do you have serious difficulty walking or climbing stairs? Answer Date of Assessment Author Status No 10/02/2021 12:38 PM BUDGET COORDINATOR Annette Jorge R N Active * Do you have difficulty dressing or bathing? Answer Date of Assessment Author Status No 10/02/2021 12:38 PM BUDGET COORDINATOR Annette Jorge R N Active * Because of a physical, mental, or emotional condition, do you have difficulty doing errands alone such as visiting a doctor's office or shopping? Answer Date of Assessment Author Status No 10/02/2021 12:38 PM BUDGET COORDINATOR Annette Jorge R N Active documented [...] [facility] [place] [address] [place] [address] [place] [address] [place], [place] [phone] 10/22/2025 9:15 AM BUDGET COORDINATOR Office Visit [facility] [address] [place] [address] Mily Gan MD [address] [place] [address] documented as of this encounter Goals Goal [...] deficiency Routine general medical examination at a [facility] care facility Mixed hyperlipidemia Primary hypertension documented in this encounter Visit Diagnoses Diagnosis Vitamin D deficiency- Primary Unspecified vitamin D deficiency Routine general medical examination at a [facility] care facility Mixed hyperlipidemia Primary hypertension Unspecified essential hypertension documented in this encounter Additional Health Concerns Assessment Noted Time PHQ-9 Depression Total Score: 0 01/24/20 8:04 AM CDT documented as of this encounter Care Teams Crankshaft Grinder Relationship Specialty [place] [address] [address], [address] [place] [address] PCP - General Nurse Practitioner Family 02/10/2301/04 documented as of this encounter
--- OUTSIDE RECORDS SUMMARY | 2024-11-02 09:12 | XMS_ITS | Encounter Summary ---
Author Organization [facility] Address [address] [place] [address]. [place], [place] [address] [place] [address] Care Team Providers Care Simulation Educator Name Role Phone Shereen Bee NP Primary Care Provider [phone] Reason for Referral * Consultation (Routine) - Closed Specialty Diagnoses / Procedures Referred By Contact Referred To Contact CARDIOLOGY / Cardiology Diagnoses Atrial fibrillation, unspecified type ([facility]) Procedures OFFICE/OUTPATIENT NEW LOW MDM 30-44 MINUTES OFFICE/OUTPT VISIT,NEW,LEVL IV OFFICE/OUTPT VISIT,NEW,LEVL V OFFICE/OUTPT VISIT,EST,LEVL III OFFICE/OUTPT VISIT,EST,LEVL IV OFFICE/OUTPT VISIT,[place] [address] [facility], [address] [place] [address] Phone: tel:[phone] fax:[phone] [place] [address] [facility] [address] Phone: tel: fax: Referral ID Status Reason Start Date Expiration Date V isits Requested Visits Authorized [id number] Closed Specialty Services 07/26/2023 08/24/2024 99 99 * Imaging (Routine) - Closed Specialty Diagnoses / Procedures Referred By Contnidhi t Referred To Contact RADIOLOGY Diagnoses Tobacco abuse Encounter for screening for lung cancer Personal history of nicotine dependence Procedures CT LUNG SCREEN[place] [address] [facility], [address] [place] [address] Phone: tel: fax: Referral ID Status Reason Start Date Expiration Date Visits Re quested Visits Authorized [id number] Closed 07/25/2023 07/25/2024 1 1 Reason for Visit * Reason Comments New Patient Pt here to transfer care. Medication Management Med refills Annual Hypertension Hyperlipidemia Encounter Details Date Type Department Care Team (Latest Contact Info) Description 07/25/2023 8:00 AM CDT Office Visit [facility] Family & Internal Medicine [address] [address] [place] [address] [facility], [address] [address] New Patient (Pt here to [...] on file Legal Sex Male 9:58 PM BEHAVIOR CLINICIAN Gender Identity Not on file Sexual Orientation [...] Assessment Author Status No 10/02/2021 12:38 PM BEHAVIOR CLINICIAN Acti ve * RETIRED Are you blind or do you have serious difficulty seeing, even when wearing glasses? Answer Date of Assessment Author Status No 10/02/2021 12:38 PM BEHAVIOR CLINICIAN Acti ve * Do you have serious difficulty walking or climbing stairs? Answer Date of Assessment Author Status No 10/02/2021 12:38 PM BEHAVIOR CLINICIAN Annette Jorge R N Active * Do you have difficulty dressing or bathing? Answer Date of Assessment Author Status No 10/02/2021 12:38 PM BEHAVIOR CLINICIAN Annette Jorge R N Active * Because of a physical, mental, or emotional condition, do you have difficulty doing errands alone such as visiting a doctor's office or shopping? Answer Date of Assessment Author Status No 10/02/2021 12:38 PM BEHAVIOR CLINICIAN Annette Jorge R N Active documented as of this encounter Mental Status * Because of a physical, mental, or emotional condition, do you have serious difficulty concentrating, remembering, or making decisions? Answer Entry Date Author Status No 10/02/2021 12:38 PM BEHAVIOR CLINICIAN Annette Jorge R N Active documented in this encounter Progress Notes * Shereen Bee NP - 07/25/2023 8:00 AM CDT Reason for Visit: New Patient (Pt here to transfer care. ), Medication Management (Med refills), Annual, Hypertension, and Hyperlipidemia History of Present Illness: Transition into care-- tx from Dr. Melo. Annual-- here for annual exam and to [facility]. HTN-- taking med as rx. No concerns. [...] biopsy performed by Federico Mayer MD at [facility] OR COLOSTOMY reversable HERNIA REPAIR Right [facility] HERNIA REPAIR Left [facility] NECK/CHEST PROCEDURE UNLISTED Right [facility], re-built right side of neck. SMALL INTESTINE SURGERY bowel rupture TOTAL KNEE ARTHROPLASTY Bilateral ZANA Partial KR, done @ [facility] Social History Socioeconomic History Marital status: Tobacco [...] irritated, pea sized lesion noted to chest. [place], raised, pea sized lesion noted to upper [...] SCREENING 12. Atrial fibrillation, unspecified type (HHS/HCC) ([facility]) Cardiac event monitor Ambulatory referral to Cardiology, [facility]) 13. SK (seborrheic keratosis) 14. Neoplasm of [...] Future 12. Atrial fibrillation, unspecified type (HHS/HCC) ([facility]) Reviewed hospital d/c from 10/02/21 where patient [...] the day of the encounter. This includes nvlb-sf-kwbd and yrg-wkyg-es-face time I provided on the day of the encounter & excludes time spent performing separately reportable services. PATO WANG-BC Cosigned by Ben Diego MD at 07/26/2023 9:22 AM CDT documented in this encounter Plan of Treatment Upcoming Encounters Date Type Department Care Team (Late st Contact Info) Description 01/27/2025 7:00 AM CDT Office Visit [facility] Family & Internal Medicine [facility] [address] [place] [address] [place] [address] [place] [address] 10/22/2025 9:15 AM BEHAVIOR CLINICIAN Office Visit [facility] [address] Mily Gan MD [address] [address] Scheduled Referrals Name Type Priority Associated Diagnoses Orde r Schedule Ambulatory referral to Cardiology, Adult ([facility]) Referral Routine Atrial fibrillation, unspecified type ([facility]) Ordered: 07/26/2023 documented as of this encounter [...] 1.11 <4.00 NG/ML 07/25/2023 1:37 PM CDT [facility] Comment: Test was performed using the Siemens method. ??Results obtained with other assay methods or kits cannot be used interchangeably with results obtained by the Siemens method. 07/25/2023 8:45 AM CDT Shereen Bee NP LABORATORY Final Result [facility] [address] [place] [address], documented in this encounter Visit Diagnoses Diagnosis [...] hazards to health Atrial fibrillation, unspecified type ([facility]) SK (seborrheic keratosis) Other seborrheic keratosis Neoplasm [...] documented as of this encounter Care Teams Simulation Educator Relationship Specialty [place] [address] [address], [address] [place] [address] PCP - General Nurse Practitioner Family 02/10/2301/04 documented as of this encounter
--- OUTSIDE RECORDS SUMMARY | 2024-11-02 09:12 | XMS_ITS | Encounter Summary ---
Author Organization [facility] Address [address] [place] [address]. [place], [place] [address] [place] [address] Care Team Providers Care Manager Lvn Name Role Phone Candis Bee NP Primary Care Provider [phone] Ilir Nelson Primary Care Provider [phone] Encounter Details Date Type Department Care Team [...] on file Legal Sex Male 9:58 PM FIRE BATTALION CHIEF Gender Identity Not on file Sexual Orientation Not on file documented as of this encounter Functional Status * RETIRED Are you deaf or do you have serious difficulty hearing Answer Date of Assessment Author Status No 10/02/2021 12:38 PM FIRE BATTALION CHIEF Acti ve * RETIRED Are you blind or do you have serious difficulty seeing, even when wearing glasses? Answer Date of Assessment Author Status No 10/02/2021 12:38 PM FIRE BATTALION CHIEF Acti ve * Do you have serious difficulty walking or climbing stairs? Answer Date of Assessment Author Status No 10/02/2021 12:38 PM FIRE BATTALION CHIEF Annette Jorge R N Active * Do you have difficulty dressing or bathing? Answer Date of Assessment Author Status No 10/02/2021 12:38 PM FIRE BATTALION CHIEF Annette Jorge R N Active * Because of a physical, mental, or emotional condition, do you have difficulty doing errands alone such as visiting a doctor's office or shopping? Answer Date of Assessment Author Status No 10/02/2021 12:38 PM FIRE BATTALION CHIEF Annette Jorge R N Active documented as of this encounter Mental Status * Because of a physical, mental, or emotional condition, do you have serious difficulty concentrating, remembering, or making decisions? Answer Entry Date Author Status No 10/02/2021 12:38 PM FIRE BATTALION CHIEF Annette Jorge R N Active documented in this encounter Plan of Treatment Upcoming Encounters Date Type Department Care Team (Late st Contact Info) Description 01/27/2025 7:00 AM CDT Office Visit [facility] Medical Group Family & Internal Medicine [facility] [address] [place] [address] [place] [address] [place] [address] 10/22/2025 9:15 AM FIRE BATTALION CHIEF Office Visit [facility] [address] Mily Gan MD [address] [address] documented as of this [...] documented as of this encounter Care Teams Manager Lvn Relationship Specialty [place] [address] [address], [address] [place] [address] PCP - General Nurse Practitioner Family 02/10/2301/04 [place] [address] [place] [address] PCP - General Physician Online Content Developer Medical 01/06/24 documented as of this encounter
--- OUTSIDE RECORDS SUMMARY | 2024-11-02 09:12 | XMS_ITS | Encounter Summary ---
Author Organization [facility] Address [address] [place] [address]. [place], [place] [address] [place] [address] Care Team Providers Care Filler Block Inserter Remover Name Role Phone Candis Bee NP Primary Care Provider [phone] Encounter Details Date Type Department Care Team (Late st Contact Info) Description 07/25/2023 8:50 AM CDT Laboratory Only [facility] Medical Group Family & Internal Medicine [facility] [address] [place] [address] [place]is Bee [place] [address] [place] [address] [address] [place] [address] Social History Tobacco Use Types [...] on file Legal Sex Male 9:58 PM PHYSICIAN PRACTICE MARKET MANAGER Gender Identity Not on file Sexual Orientation Not on file documented as of this encounter Functional Status * RETIRED Are you deaf or do you have serious difficulty hearing Answer Date of Assessment Author Status No 10/02/2021 12:38 PM PHYSICIAN PRACTICE MARKET MANAGER Acti ve * RETIRED Are you blind or do you have serious difficulty seeing, even when wearing glasses? Answer Date of Assessment Author Status No 10/02/2021 12:38 PM PHYSICIAN PRACTICE MARKET MANAGER Acti ve * Do you have serious difficulty walking or climbing stairs? Answer Date of Assessment Author Status No 10/02/2021 12:38 PM PHYSICIAN PRACTICE MARKET MANAGER Annette Jorge R N Active * Do you have difficulty dressing or bathing? Answer Date of Assessment Author Status No 10/02/2021 12:38 PM PHYSICIAN PRACTICE MARKET MANAGER Annette Jorge R N Active * Because of a physical, mental, or emotional condition, do you have difficulty doing errands alone such as visiting a doctor's office or shopping? Answer Date of Assessment Author Status No 10/02/2021 12:38 PM PHYSICIAN PRACTICE MARKET MANAGER Annette Jorge R N Active documented [...] Medical Group Family & Internal Medicine [place] [address] [place] [address] [place] [address] [place], [place] [address] 10/22/2025 9:15 AM PHYSICIAN PRACTICE MARKET MANAGER Office Visit [facility] [address] [place] [address] Mily Gan MD [address] [place] [address] documented as of this encounter Goals Goal [...] documented as of this encounter Care Teams Filler Block Inserter Remover Relationship Specialty [place] [address] [facility], [address] [place] [address] PCP - General Nurse Practitioner Family 02/10/2301/04 documented as of this encounter
--- OUTSIDE RECORDS SUMMARY | 2024-11-02 09:12 | XMS_ITS | Encounter Summary ---
Author Organization [facility] Address [address] [place] [address]. [place], [place] [address] [place] [address] Care Team Providers Care Geothermal Powerplant Supervisor Name Role Phone Candis Bee NP Primary Care Provider [phone] Ilir Nelson Primary Care Provider [phone] Encounter Details Date Type Department Care Team [...] on file Legal Sex Male 9:58 PM PIPELINER Gender Identity Not on file Sexual Orientation Not on file documented as of this encounter Functional Status * RETIRED Are you deaf or do you have serious difficulty hearing Answer Date of Assessment Author Status No 10/02/2021 12:38 PM PIPELINER Acti ve * RETIRED Are you blind or do you have serious difficulty seeing, even when wearing glasses? Answer Date of Assessment Author Status No 10/02/2021 12:38 PM PIPELINER Acti ve * Do you have serious difficulty walking or climbing stairs? Answer Date of Assessment Author Status No 10/02/2021 12:38 PM PIPELINER Annette Jorge R N Active * Do you have difficulty dressing or bathing? Answer Date of Assessment Author Status No 10/02/2021 12:38 PM PIPELINER Annette Jorge R N Active * Because of a physical, mental, or emotional condition, do you have difficulty doing errands alone such as visiting a doctor's office or shopping? Answer Date of Assessment Author Status No 10/02/2021 12:38 PM PIPELINER Annette Jorge R N Active documented as of this encounter Mental Status * Because of a physical, mental, or emotional condition, do you have serious difficulty concentrating, remembering, or making decisions? Answer Entry Date Author Status No 10/02/2021 12:38 PM PIPELINER Annette Jorge R N Active documented in this encounter Plan of Treatment Upcoming Encounters Date Type Department Care Team (Late st Contact Info) Description 01/27/2025 7:00 AM CDT Office Visit [facility] Medical Group Family & Internal Medicine [facility] [address] [place] [address] [place] [address] [place] [address] 10/22/2025 9:15 AM PIPELINER Office Visit [facility] [address] Mily Gan MD [address] [address] documented as of this encounter [...] documented as of this encounter Care Teams Geothermal Powerplant Supervisor Relationship Specialty [place] [address] [address], [address] [place] [address] PCP - General Nurse Practitioner Family 02/10/2301/04 [place] [address] [place] [address] PCP - General Physician Chiropractic Practice Manager Medical 01/06/24 documented as of this encounter
--- OUTSIDE RECORDS SUMMARY | 2024-11-02 09:12 | XMS_ITS | Encounter Summary ---
Author Organization [facility] Address [address] [place] [address]. [place], [place] [address] [place] [address] Care Team Providers Care Tow Truck Operator Name Role Phone Candis Bee NP Primary Care Provider [phone] Reason for Referral * Consultation (Routine) - Closed Specialty Diagnoses / Procedures Referred By Contact Referred To Contact CARDIOLOGY / Cardiology Diagnoses Atrial fibrillation, unspecified type ([facility]) Procedures OFFICE/OUTPATIENT NEW LOW MDM 30-44 MINUTES OFFICE/OUTPT VISIT,NEW,LEVL IV OFFICE/OUTPT VISIT,NEW,LEVL V OFFICE/OUTPT VISIT,EST,LEVL III OFFICE/OUTPT VISIT,EST,LEVL IV OFFICE/OUTPT VISIT,EST,[place] [address] [facility], [address] [place] [address] Phone: tel:[phone] fax:[phone] [place] [address] [facility] [address] [address] Phone: tel: fax: Referral ID Status Reason Start Date Expiration Date V isits Requested Visits Authorized [id number] Closed Specialty Services 09/27/2023 10/26/2024 1 1 NGUAL LOAN PROCESSOR Encounter Details Date Type Department Care Team (Late st Contact Info) Description 09/27/2023 Orders Only [facility] Medical Group Family & Internal Medicine [facility] [address] [place] [address] Aamir Cruz I, RN Social [...] on file Legal Sex Male 9:58 PM BILINGUAL LOAN PROCESSOR Gender Identity Not on file Sexual Orientation Not on file documented as of this encounter Functional Status * RETIRED Are you deaf or do you have serious difficulty hearing Answer Date of Assessment Author Status No 10/02/2021 12:38 PM BILINGUAL LOAN PROCESSOR Acti ve * RETIRED Are you blind or do you have serious difficulty seeing, even when wearing glasses? Answer Date of Assessment Author Status No 10/02/2021 12:38 PM BILINGUAL LOAN PROCESSOR Acti ve * Do you have serious difficulty walking or climbing stairs? Answer Date of Assessment Author Status No 10/02/2021 12:38 PM BILINGUAL LOAN PROCESSOR Annette Jorge R N Active * Do you have difficulty dressing or bathing? Answer Date of Assessment Author Status No 10/02/2021 12:38 PM BILINGUAL LOAN PROCESSOR Annette Jorge R N Active * Because of a physical, mental, or emotional condition, do you have difficulty doing errands alone such as visiting a doctor's office or shopping? Answer Date of Assessment Author Status No 10/02/2021 12:38 PM BILINGUAL LOAN PROCESSOR Annette Jorge R N Active documented as of this encounter Mental Status * Because of a physical, mental, or emotional condition, do you have serious difficulty concentrating, remembering, or making decisions? Answer Entry Date Author Status No 10/02/2021 12:38 PM BILINGUAL LOAN PROCESSOR Annette Jorge R N Active documented in this encounter Plan of Treatment Upcoming Encounters Date Type Department Care Team (Late st Contact Info) Description 01/27/2025 7:00 AM CDT Office Visit [facility] Medical Group Family & Internal Medicine [facility] [address] [place] [address] [place] [address] [place] [address] 10/22/2025 9:15 AM BILINGUAL LOAN PROCESSOR Office Visit [facility] [address] [address] Mily Gan MD [address] [address] Scheduled Referrals Name Type Priority Associated Diagnoses Orde r Schedule Ambulatory referral to Cardiology, Adult (OTHER) Referral Routine Atrial fibrillation, unspecified type ([facility]) Ordered: 09/27/2023 documented as of this encounter [...] Visit Diagnoses Diagnosis Atrial fibrillation, unspecified type ([facility])- Primary documented in this encounter Additional Health Concerns Assessment Noted Time PHQ-9 Depression Total Score: 0 01/24/20 23 8:04 AM CDT documented as of this encounter Care Teams Tow Truck Operator Relationship Specialty [place] [address] [facility], [address] [place] [address] PCP - General Nurse Practitioner Family 02/10/2301/04 documented as of this encounter
--- OUTSIDE RECORDS SUMMARY | 2024-11-02 09:12 | XMS_ITS | Encounter Summary ---
Author Organization [facility] Address [address] [place] [address]. [place], [place] [address] [place] [address] Care Team Providers Care Almond Sorter Name Role Phone Candis Bee NP Primary Care Provider [phone] Reason for Visit * Reason Onset Date Comments Question 07/31/2023 Encounter Details Date Type Department Care Team (Late st Contact Info) Description 07/31/2023 Telephone [facility] Medical Group Family & Internal Medicine [facility] [address] [place] [address] [place] [address] [facility] [address] [place] [address] Question Social History Tobacco Use [...] on file Legal Sex Male 9:58 PM DRAWSTRING KNOTTER Gender Identity Not on file Sexual Orientation Not on file documented as of this encounter Functional Status * RETIRED Are you deaf or do you have serious difficulty hearing Answer Date of Assessment Author Status No 10/02/2021 12:38 PM DRAWSTRING KNOTTER Acti ve * RETIRED Are you blind or do you have serious difficulty seeing, even when wearing glasses? Answer Date of Assessment Author Status No 10/02/2021 12:38 PM DRAWSTRING KNOTTER Acti ve * Do you have serious difficulty walking or climbing stairs? Answer Date of Assessment Author Status No 10/02/2021 12:38 PM DRAWSTRING KNOTTER Annette Jorge R N Active * Do you have difficulty dressing or bathing? Answer Date of Assessment Author Status No 10/02/2021 12:38 PM DRAWSTRING KNOTTER Annette Jorge R N Active * Because of a physical, mental, or emotional condition, do you have difficulty doing errands alone such as visiting a doctor's office or shopping? Answer Date of Assessment Author Status No 10/02/2021 12:38 PM DRAWSTRING KNOTTER Annette Jorge R N Active documented as of this encounter Mental Status * Because of a physical, mental, or emotional condition, do you have serious difficulty concentrating, remembering, or making decisions? Answer Entry Date Author Status No 10/02/2021 12:38 PM DRAWSTRING KNOTTER Annette Jorge R N Active documented in [...] states he is getting calls from the technology analyst to schedule an appointment, they don't want to see him until after his heart monitor information. Don states he has not heard anything about the heart monitor. # [phone] Don. OK to leave a message, does not answer the phone when driving. documented in this encounter Plan of Treatment Upcoming Encounters Date Type Department Care Team (Late st Contact Info) Description 01/27/2025 7:00 AM CDT Office Visit [facility] Medical Group Family & Internal Medicine [facility] [address] [place] [address] [place] [address] [place] [address] 10/22/2025 9:15 AM DRAWSTRING KNOTTER Office Visit [facility] [address] [address] Mily Gan MD [address] [place] [address] documented as of this encounter [...] documented as of this encounter Care Teams Almond Sorter Relationship Specialty [place] [address] [facility], [address] [place] [address] PCP - General Nurse Practitioner Family 02/10/2301/04 documented as of this encounter
--- OUTSIDE RECORDS SUMMARY | 2024-11-02 09:12 | XMS_ITS | Encounter Summary ---
Author Organization [facility] Address [address] [place] [address]. [place], [place] [address] [place] [address] Care Team Providers Care Weatherstrip Machine Operator Name Role Phone AkashCandis hedrick BETTY Primary Care Provider [phone] Encounter Details Date Type Department Care Team [...] file Legal Sex Male 9:58 PM GLASS CALIBRATOR Gender Identity Not on file Sexual Orientation Not on file documented as of this encounter Functional Status * RETIRED Are you deaf or do you have serious difficulty hearing Answer Date of Assessment Author Status No 10/02/2021 12:38 PM GLASS CALIBRATOR Acti ve * RETIRED Are you blind or do you have serious difficulty seeing, even when wearing glasses? Answer Date of Assessment Author Status No 10/02/2021 12:38 PM GLASS CALIBRATOR Acti ve * Do you have serious difficulty walking or climbing stairs? Answer Date of Assessment Author Status No 10/02/2021 12:38 PM GLASS CALIBRATOR Annette Jorge R N Active * Do you have difficulty dressing or bathing? Answer Date of Assessment Author Status No 10/02/2021 12:38 PM GLASS CALIBRATOR Annette Jorge R N Active * Because of a physical, mental, or emotional condition, do you have difficulty doing errands alone such as visiting a doctor's office or shopping? Answer Date of Assessment Author Status No 10/02/2021 12:38 PM GLASS CALIBRATOR Annette Jorge R N Active documented as of this encounter Mental Status * Because of a physical, mental, or emotional condition, do you have serious difficulty concentrating, remembering, or making decisions? Answer Entry Date Author Status No 10/02/2021 12:38 PM GLASS CALIBRATOR Annette Jorge R N Active documented in this encounter Plan of Treatment Upcoming Encounters Date Type Department Care Team (Late st Contact Info) Description 01/27/2025 7:00 AM CDT Office Visit [facility] Medical Group Family & Internal Medicine [facility] [address] [place] [phone] Ilir Nelson PA [address] [place] [phone] 10/22/2025 9:15 AM GLASS CALIBRATOR Office Visit [facility] [address] Mily Gan MD [address] [place] [address] [phone] documented as of this encounter Goals Goal [...] documented as of this encounter Care Teams Weatherstrip Machine Operator Relationship Specialty [place] [address] [facility] [address] [place] [address] PCP - General Nurse Practitioner Family 02/10/2301/04 documented as of this encounter
--- OUTSIDE RECORDS SUMMARY | 2024-11-02 09:12 | XMS_ITS | Encounter Summary ---
Author Organization [facility] Address [address] [place] [address]. [place], [place] [address] [place] [address] Care Team Providers Care Felt Cutter Name Role Phone Candis Bee NP Primary Care Provider [phone] Ilir Nelson Primary Care Provider [phone] Encounter Details Date Type Department Care Team [...] on file Legal Sex Male 9:58 PM INSULATION SUPERVISOR Gender Identity Not on file Sexual Orientation Not on file documented as of this encounter Functional Status * RETIRED Are you deaf or do you have serious difficulty hearing Answer Date of Assessment Author Status No 10/02/2021 12:38 PM INSULATION SUPERVISOR Acti ve * RETIRED Are you blind or do you have serious difficulty seeing, even when wearing glasses? Answer Date of Assessment Author Status No 10/02/2021 12:38 PM INSULATION SUPERVISOR Acti ve * Do you have serious difficulty walking or climbing stairs? Answer Date of Assessment Author Status No 10/02/2021 12:38 PM INSULATION SUPERVISOR Annette Jorge R N Active * Do you have difficulty dressing or bathing? Answer Date of Assessment Author Status No 10/02/2021 12:38 PM INSULATION SUPERVISOR Annette Jorge R N Active * Because of a physical, mental, or emotional condition, do you have difficulty doing errands alone such as visiting a doctor's office or shopping? Answer Date of Assessment Author Status No 10/02/2021 12:38 PM INSULATION SUPERVISOR Annette Jorge R N Active documented as of this encounter Mental Status * Because of a physical, mental, or emotional condition, do you have serious difficulty concentrating, remembering, or making decisions? Answer Entry Date Author Status No 10/02/2021 12:38 PM INSULATION SUPERVISOR Annette Jorge R N Active documented in this encounter Plan of Treatment Upcoming Encounters Date Type Department Care Team (Late st Contact Info) Description 01/27/2025 7:00 AM CDT Office Visit [facility] Medical Group Family & Internal Medicine [facility] [address] [place] [address] [place] [address] [place] [address] 10/22/2025 9:15 AM INSULATION SUPERVISOR Office Visit [facility] [address] Mily Gan MD [address] [address] documented as of this encounter [...] documented as of this encounter Care Teams Felt Cutter Relationship Specialty [place] [address] [address], [address] [place] [address] PCP - General Nurse Practitioner Family 02/10/2301/04 [place] [address] [place] [address] PCP - General Physician Licensed Clinician Medical 01/06/24 documented as of this encounter
--- OUTSIDE RECORDS SUMMARY | 2024-11-02 09:12 | XMS_ITS | Encounter Summary ---
Author Organization [facility] Address [address] [place] [address]. [place], [place] [address] [place] [address] Care Team Providers Care Team Cdl Driver Name Role Phone AkashCandis hedrick BETTY Primary Care Provider [phone] Reason for Visit * Reason Onset Date Comments Schedule Test 08/07/2023 Heart monitor Encounter Details Date Type Department Care Team ([facility] Contact Info) Description 08/07/2023 Telephone [facility], [facility] [address] [place], [place] [phone] Mily Gan MD [facility]. [facility] [address] [place] [address] Schedule Test (Heart monitor) Social [...] file Legal Sex Male 9:58 PM COMPUTER APPLICATIONS DEVELOPER Gender Identity Not on file Sexual Orientation Not on file documented as of this encounter Functional Status * RETIRED Are you deaf or do you have serious difficulty hearing Answer Date of Assessment Author Status No 10/02/2021 12:38 PM COMPUTER APPLICATIONS DEVELOPER Acti ve * RETIRED Are you blind or do you have serious difficulty seeing, even when wearing glasses? Answer Date of Assessment Author Status No 10/02/2021 12:38 PM COMPUTER APPLICATIONS DEVELOPER Acti ve * Do you have serious difficulty walking or climbing stairs? Answer Date of Assessment Author Status No 10/02/2021 12:38 PM COMPUTER APPLICATIONS DEVELOPER Annette Jorge R N Active * Do you have difficulty dressing or bathing? Answer Date of Assessment Author Status No 10/02/2021 12:38 PM COMPUTER APPLICATIONS DEVELOPER Annette Jorge, R N Active * Because of a physical, mental, or emotional condition, do you have difficulty doing errands alone such as visiting a doctor's office or shopping? Answer Date of Assessment Author Status No 10/02/2021 12:38 PM COMPUTER APPLICATIONS DEVELOPER Annette Jorge R N Active documented as of this encounter Mental Status * Because of a physical, mental, or emotional condition, do you have serious difficulty concentrating, remembering, or making decisions? Answer Entry Date Author Status No 10/02/2021 12:38 PM COMPUTER APPLICATIONS DEVELOPER Annette Jorge, R N Active documented in [...] HOME Medical Group Family & Internal Medicine [place] [address] [place] [address] [facility] [place] [phone] 10/22/2025 9:15 AM COMPUTER APPLICATIONS DEVELOPER Office Visit [facility] [address] Mily Gan MD [facility] [address] [place], [place] [phone] documented as of this encounter Goals Goal [...] documented as of this encounter Care Teams Team Cdl Driver Relationship Specialty [place] [address] [address], [address] [place], [place] [id number] PCP - General Nurse Practitioner Family 02/10/2301/04 documented as of this encounter
--- OUTSIDE RECORDS SUMMARY | 2024-11-02 09:12 | XMS_ITS | Encounter Summary ---
Author Organization [facility] Address [address] [place] [address]. [place], [place] [address] [place] [address] Care Team Providers Care Licensing Specialist Name Role Phone Shereen Bee NP Primary Care Provider [phone] Reason for Visit * Reason Comments Medicare Wellness Encounter Details Date Type Department Care Team (Late st Contact Info) Description 04/10/2023 8:00 AM CDT Office Visit [facility] Medical Group Family & Internal Medicine [facility] [address] [place] [phone] Shereen Bee NP [address] [place] [address] Medicare Wellness Social History Tobacco Use [...] on file Legal Sex Male 9:58 PM LOAN EXAMINER Gender Identity Not on file Sexual [...] Assessment Author Status No 10/02/2021 12:38 PM LOAN EXAMINER Acti ve * RETIRED Are you blind or do you have serious difficulty seeing, even when wearing glasses? Answer Date of Assessment Author Status No 10/02/2021 12:38 PM LOAN EXAMINER Acti ve * Do you have serious difficulty walking or climbing stairs? Answer Date of Assessment Author Status No 10/02/2021 12:38 PM LOAN EXAMINER Annette Jorge R N Active * Do you have difficulty dressing or bathing? Answer Date of Assessment Author Status No 10/02/2021 12:38 PM LOAN EXAMINER Annette Jorge R N Active * Because of a physical, mental, or emotional condition, do you have difficulty doing errands alone such as visiting a doctor's office or shopping? Answer Date of Assessment Author Status No 10/02/2021 12:38 PM LOAN EXAMINER Annette Jorge R N Active documented as [...] assignment. DIABETES PREVENTION PROGRAM Medicare covers a irin-bwr-xnscewqj proven health behavior change program to help you prevent type 2 diabetes. The program begins with 16 core sessions offered in a group setting over a 6-month period. In these sessions, you???ll get: Training to make realistic, lasting behavior changes Tips on how to get more exercise Strategies for controlling your weight A behavior strength and conditioning coach, specially trained to help keep you [...] covers up to 2 individual, 20-30 minute, gtld-av-jaqt, high- intensity behavioral counseling sessions each year for sexually active adults at increased risk for STIs. Medicare will only cover these counseling sessions if they???re provided by a primary care doctor or other primary carepractitioner and take place in a primary care setting (like a doctor???s office). Counseling conducted in an inpatient setting, like a [facility]cf facility, won???t be covered as a preventive service. You pay nothing for these services if the primary care doctor or other qualified health care provider accepts assignment. Based on your responses to the Health Risk Assessment and appointment today, your provider recommends the following: ADVANCE DIRECTIVES The Basics Written by the doctors and editors at [facility] What are advance directives???--??Advance directives are [...] proxy (also called the durable power of vice president of product marketing for health care) - The health care [...] process is complete. This topic retrieved from [employer] on: Nov 13, 2018. Topic 81986 Version 11.0 table 1: Resources that can help you make advance directives ?? Address Phone number Website AAR [address] [place], [place] Toll-free: [phone] MFO-AAR [ ] http://assets.[facility].org/external_sites/ caregiving/multimedia/EG_AdvanceDirectives.html Aging with Dignity (Five Wishes form) [address] [place] [address] Toll-free: [phone] 5WISHES [ ] www.agingwithdignity.org CaringInfo ?? Toll-free: www.caringOncimmuneo.org Broadcast.com Paradigm c/o [employer]. [address] [place] [address] www.[employer].org HEALTHY DIET INFORMATION With a heart healthy [...] condiments. Pepper, herbs, spices, vinegar, lemon or [place] juices are great for seasoning. Sugar, cocoa [...] for help. Where can I learn more? [place] [employer] https://familydoctor.org/xxai-hzk-hlhizhci-rjp-j-mstvigf-heart/ [place] Heart Association http://www.heart.org/HEARTORG/HealthyLiving/HealthyEating/Nutrition/Ytem-vto-Eam estyle-Recommendations_[facility]_[address]_Article.jsp#.Wxf_Q6oUmUk EMERGENCY SUPPLIES AND FIRST AID All homes [...] your heart beating faster. From pushing a commercial lawn specialist, to taking a dance class, to biking [...] suggest: Hearing aids - Use microphones to warp picker sounds and tiny speakers to send [...] eardrum. Where can I learn more? National [place] on Aging https://www.nicholas.nih.gov/health/ydhxjjz-mmgp-rxgehf-gsysstx-gbvgi-euuavf PAIN During your health risk assessment you [...] pain ever and [facility]. An exam will help your doctor [...] you. Some of these are massage, acupuncture, career law clerk, and relaxation. What drugs may be needed? [...] can also cause the mouth to be veneer redrier. The gums shrink and expose new areas of teeth to possible infection or decay. Dentures may not fit as well because of changes in the gums and the jawbones. The risk of oral cancer is higher. Brushing Teeth can last a lifetime if they are looked after. The most effective thing you can do is brushingyour teeth. [place] them in the morning and again before [...] has fluoride and is recommended by the [place] Dental Association. Tartar-control toothpaste may be helpful. [...] seat passengers in Vans or SUV vehicles. [facility] residents every day in vehicle accidents. Over 75% of all automobile accidents reported across the [facility] resulted in a fatality or serious bodily [...] biopsy performed by Federico Mayer MD at [facility] reversable HERNIA REPAIR Right [facility] HERNIA REPAIR Left [facility] NECK/CHEST PROCEDURE UNLISTED Right [facility], re-built right side of neck. SMALL INTESTINE SURGERY bowel rupture TOTAL KNEE ARTHROPLASTY Bilateral ZANA Partial KR, done @ [facility] Family History Problem Relation Name Age [...] CENTER Medical Group Family & Internal Medicine [facility] [address] [place] [address] [place] [address] [place] [address] 10/22/2025 9:15 AM LOAN EXAMINER Office Visit [facility] [address] Mily Gan MD [facility] [place] [facility] [address] [place] [address] documented as of this encounter [...] - 11.0 x10'3/uL 07/21/2023 1:05 PM CDT [facility] RBC 4.50 4.50 - 5.90 x10'6/uL 07/21/2023 1:05 PM CDT [facility] HGB 14.5 14.0 - 17.5 G/DL 07/21/2023 1:05 PM CDT [facility] HCT 42.9 41.5 - 50.4 % 07/21/2023 1:05 PM CDT [facility] MCV 95.3 80.0 - 96.0 FL 07/21/2023 1:05 PM [facility] MCH 32.2(H) 26.5 - 31.4 PG 07/21/2023 1:05 PM [facility] MCHC 33.8 31.9 - 34.8 G/DL 07/21/2023 1:05 PM [facility] RDW 12.9 12.3 - 14.3 % 07/21/2023 1:05 PM [facility] PLT 241 151 - 353 x10'3/uL 07/21/2023 1:05 PM [facility] MPV 11.0 9.7 - 11.9 FL 07/21/2023 1:05 PM [facility] RBC MORPHOLOGY NORMAL 07/21/2023 1:05 PM [facility] PLT MORPH. NORMAL 07/21/2023 1:05 PM [facility] WBC MORPHOLOGY NORMAL 07/21/2023 1:05 PM [facility] LYMPHOCYTES % 33.8 15.8 - 45.0 % 07/21/2023 1:05 PM [facility] NEUTROPHILS % 51.6 42.1 - 71.9 % 07/21/2023 1:05 PM [facility] MONOCYTES % 11.3 5.7 - 12.5 % 07/21/2023 1:05 PM [facility] EOSINOPHILS 2.0 0.0 - 5.6 % 07/21/2023 1:05 PM [facility] BASOPHILS 1.1 0.0 - 1.3 % 07/21/2023 1:05 PM [facility] ABS. NEUTROPHILS 2.85 1.40 - 6.00 x10'3/uL 07/21/2023 1:05 PM [facility] IMMATURE GRANS % 0.2 0.0 - 0.5 % 07/21/2023 1:05 PM CDT [facility] ABS. LYMPHOCYTES 1.86 0.80 - 4.70 x10'3/uL 07/21/2023 1:05 PM CDT [facility] 07/21/2023 8:26 AM CDT Shereen Bee NP LABORATORY Final Result [facility] [address] [place] [address], * COMPREHENSIVE METABOLIC PANEL (07/21/2023 8:26 AM CDT) GLUCOSE 99 70 - 99 MG/DL 07/21/2023 2:03 PM CDT [facility] BUN 14 7 - 18 MG/DL 07/21/2023 2:03 PM CDT [facility] CREATININE S/P/B 0.82 0.7 - 1.3 MG/DL 07/21/2023 2:03 PM CDT [facility] SODIUM S/P/B 142 136 - 145 MMOL/L 07/21/2023 2:03 PM CDT [facility] POTASSIUM S/P/B 5.1 3.5 - 5.1 MMOL/L 07/21/2023 2:03 PM CDT [facility] CHLORIDE S/P/B 104 100 - 108 MMOL/L 07/21/2023 2:03 PM CDT [facility] CO2 30.5 21 - 32 MMOL/L 07/21/2023 2:03 PM CDT [facility] CALCIUM S/P/B 8.7 8.5 - 10.1 MG/DL 07/21/2023 2:03 PM CDT [facility] BILIRUBIN TOTAL S/P/B 0.9 0.2 - 1.2 MG/DL 07/21/2023 2:03 PM [facility] TOTAL PROTEIN S/P/B 7.5 6.4 - 8.2 G/DL 07/21/2023 2:03 PM [facility] ALBUMIN S/P/B 4.0 3.4 - 5.0 G/DL 07/21/2023 2:03 PM T [facility] AST 19 15 - 37 U/L 07/21/2023 2:03 PM [facility] ALT 32 16 - 60 U/L 07/21/2023 2:03 PM [facility] ALKALINE PHOSPHATASE S/P/B 60 50 - 136 U/L 07/21/2023 2:03 PM [facility] ANION GAP 7.5 5 - 15 MMOL/L 07/21/2023 2:03 PM [facility] BUN CREATININE RATIO 17.1 6 - 26 07/21/2023 2:03 PM [facility] A/G RATIO 1.1 1.0 - 2.0 RATIO 07/21/2023 2:03 PM [facility] GFR ESTIMATE >90 >90 ML/MIN/1.7 3 M2 07/21/2023 2:03 PM [facility] Comment: NOTE: eGFR is not calculated for patients <18 years of age. This is an estimated GFR calculation using the new CKD EPI creatinine equation without race and so does not require a correction factor for race. This estimated GFR should not be used for calculating drug doses. 07/21/2023 8:26 AM CDT us Shereen Bee NP LABORATORY Final Result [facility] [address] [place] [address], * LIPID PANEL (07/21/2023 8:26 AM CDT) [facility] Signature CHOLESTEROL 162 <200.0 MG/DL 07/21/2023 2:03 PM CDT [facility] TRIGLYCERIDES 69 <150 MG/DL 07/21/2023 2:03 PM CDT [facility] HDL 53 >40.0 MG/DL 07/21/2023 2:03 PM CDT [facility] LDL (CALCULATED) 95 <100 MG/DL 07/21/20 2:03 PM CDT [facility] NON HDL CHOLESTEROL 109 <130 MG/DL 07/21 2:03 PM CDT [facility] CHOL/HDL RATIO 3.1 0.0 - 4.5 07/21/2023 2:03 PM CDT [facility] VLDL CALCULATION 14 5 - 55 MG/DL 07/21/2023 2:03 PM T [facility] LIPID INTERPRETATION 07/21/2023 2:03 PM T [facility] Comment: NIH CONCENSUS REPORT [...] NP LABORATORY Final Result Performing Organization Address [facility] Co de Phone Number [facility] [address] [place] [address], * (ABNORMAL) VITAMIN B12 / FOLATE (07/21/2023 8:26 AM CDT) Pathologist [facility] VITAMIN B12 S/P/B 1,285(H) 193 - 986 PG/ML 07/21/2023 2:03 PM CDT [facility] FOLATE >20.0 8.6 - 58.9 NG/ML 07/21/2023 2:03 PM CDT [facility] 07/21/2023 8:26 AM CDT us Shereen Dragovich PULLING UNIT FLOORHAND LABORATORY Final Result Performing Organization Address [facility] de Phone Number [facility] [address] [place] [address], * VITAMIN D, 25 [place] (07/21/2023 8:26 AM CDT) VITAMIN D 25 HYDROXY S/P/B 51 30 - 100 NG/ML 07/24/2023 6:58 PM CDT [facility] Comment: ? INTERPRETATION ? DEFICIENT ??<20 ? INSUFFICIENT 20-29 ?SUFFICIENT 30-100 07/21/2023 8:26 AM CDT Shereen Bee PULLING UNIT FLOORHAND LABORATORY Final Result Performing Organization Address [facility] de Phone Number [facility] [address] [place] [address], [place] [phone] documented in this encounter Visit Diagnoses Diagnosis [...] documented as of this encounter Care Teams Licensing Specialist Relationship Specialty [place] [address] [address], [address] [place] [address] PCP - General Nurse Practitioner Family 02/10/2301/04 documented as of this encounter
--- OUTSIDE RECORDS SUMMARY | 2024-11-02 09:12 | XMS_ITS | Encounter Summary ---
Author Organization [facility] Address [address] [place] [address]. [place], [place] [address] [place] [address] Care Team Providers Care Hand Alterations Tailor Name Role Phone AkashCandis hedrick BETTY Primary Care Provider [phone] Encounter Details Date Type Department Care Team [...] on file Legal Sex Male 9:58 PM FIRST AID INSTRUCTOR Gender Identity Not on file Sexual Orientation Not on file documented as of this encounter Functional Status * RETIRED Are you deaf or do you have serious difficulty hearing Answer Date of Assessment Author Status No 10/02/2021 12:38 PM FIRST AID INSTRUCTOR Acti ve * RETIRED Are you blind or do you have serious difficulty seeing, even when wearing glasses? Answer Date of Assessment Author Status No 10/02/2021 12:38 PM FIRST AID INSTRUCTOR Acti ve * Do you have serious difficulty walking or climbing stairs? Answer Date of Assessment Author Status No 10/02/2021 12:38 PM FIRST AID INSTRUCTOR Annette Jorge R N Active * Do you have difficulty dressing or bathing? Answer Date of Assessment Author Status No 10/02/2021 12:38 PM FIRST AID INSTRUCTOR Annette Jorge R N Active * Because of a physical, mental, or emotional condition, do you have difficulty doing errands alone such as visiting a doctor's office or shopping? Answer Date of Assessment Author Status No 10/02/2021 12:38 PM FIRST AID INSTRUCTOR Annette Jorge R N Active documented as of this encounter Mental Status * Because of a physical, mental, or emotional condition, do you have serious difficulty concentrating, remembering, or making decisions? Answer Entry Date Author Status No 10/02/2021 12:38 PM FIRST AID INSTRUCTOR Annette Jorge R N Active documented in this encounter Plan of Treatment Upcoming Encounters Date Type Department Care Team (Late st Contact Info) Description 01/27/2025 7:00 AM CDT Office Visit [facility] Medical Group Family & Internal Medicine [facility] [address] [place] [phone] Ilir Nelson PA [address] [place] [phone] 10/22/2025 9:15 AM FIRST AID INSTRUCTOR Office Visit [facility] [address] Mily Gan MD [address] [address] documented as of this encounter Goals Goal [...] as of this encounter Care Teams Hand Alterations Tailor Relationship Specialty [place] [address] [facility] [address] [place] [address] PCP - General Nurse Practitioner Family 02/10/2301/04 documented as of this encounter
--- OUTSIDE RECORDS SUMMARY | 2024-11-02 09:12 | XMS_ITS | Encounter Summary ---
Author Organization [facility] Address [address] [place] [address]. [place], [place] [address] [place] [address] Care Team Providers Care Communications Technologist Name Role Phone Shereen Bee NP Primary Care Provider [phone] Reason for Referral * Imaging (Routine) - Closed Specialty Diagnoses / Procedures Referred By Shelby jama Referred To Contact RADIOLOGY Diagnoses Tobacco abuse Encounter for screening for lung cancer Personal history of nicotine dependence Procedures CT LUNG SCRE[place] [address] [address], [address] [place] [address] Phone: tel: fax: Referral ID Status Reason Start Date Expiration Date Visits Re quested Visits Authorized [id number] Closed 07/25/2023 07/25/2024 1 1 Reason for Visit * Imaging (Routine) - Closed Specialty Diagnoses / Procedures Referred By Shelby jama Referred To Contact RADIOLOGY Diagnoses Tobacco abuse Encounter for screening for lung cancer Personal history of nicotine dependence Procedures CT LUNG [place] [address] [employer], [address] [address] Phone: tel: fax: Referral ID Status Reason Start Date Expiration Date Visits Re quested Visits Authorized [id number] Closed 07/25/2023 07/25/2024 1 1 Encounter Details Date Type Department Care Team (Latest Contact Info) Description 08/01/2023 10:00 AM CDT - 08/01/2023 11:59 PM CDT Hospital Encounter [facility] [address] [place] [address] [place] [address] [address], [phone] Discharge Disposition: Home or Self Care (Routine [...] file Legal Sex Male 9:58 PM BUSINESS PROCESS COORDINATOR Gender Identity Not on file Sexual Orientation Not on file documented as of this encounter Functional Status * RETIRED Are you deaf or do you have serious difficulty hearing Answer Date of Assessment Author Status No 10/02/2021 12:38 PM BUSINESS PROCESS COORDINATOR Acti ve * RETIRED Are you blind or do you have serious difficulty seeing, even when wearing glasses? Answer Date of Assessment Author Status No 10/02/2021 12:38 PM BUSINESS PROCESS COORDINATOR Acti ve * Do you have serious difficulty walking or climbing stairs? Answer Date of Assessment Author Status No 10/02/2021 12:38 PM BUSINESS PROCESS COORDINATOR Annette Jorge R N Active * Do you have difficulty dressing or bathing? Answer Date of Assessment Author Status No 10/02/2021 12:38 PM BUSINESS PROCESS COORDINATOR Annette Jorge R N Active * [...] [facility] Family [facility] Internal Medicine - [place] [address] [place] [address] [place] [address] [place] [address] 10/22/2025 9:15 AM BUSINESS PROCESS COORDINATOR Office Visit [facility] [address] Mily Gan MD [address] [address] documented as of this encounter [...] Patiño MD, 08/02/2023 12:31 PM Shereen Bee AUTO CLUTCH SPECIALIST CT Final Result documented in this encounter Visit Diagnoses Diagnosis Tobacco abuse Tobacco use disorder Encounter for screening for lung cancer Personal history of nicotine dependence Personal history of tobacco use, presenting hazards to health documented in this encounter Additional Health Concerns Assessment Noted Time PHQ-9 Depression Total Score: 0 01/24/20 8:04 AM CDT documented as of this encounter Care Teams Communications Technologist Relationship Specialty Start Date End Date Shereen Bee, BETTY [address] [address], [address] [address] PCP - General Nurse Practitioner Family 02/10/2301/04 documented as of this encounter
--- OUTSIDE RECORDS SUMMARY | 2024-11-02 09:13 | XMS_ITS | Encounter Summary ---
Author Organization [facility] Address [address] [place] [address]. [place], [place] [address] [place] [address] Care Team Providers Care Vp Rheumatology Name Role Phone Cristal Candis HERNÁNDEZ Primary Care Provider [phone] Reason for Visit * Reason Onset Date Comments Pre-visit Gap Closure 04/04/2023 Encounter Details Date Type Department Care Team (Late st Contact Info) Description 04/04/2023 Patient Outreach [facility] Family [facility] Internal [facility] [address] [place] [address] Lindsay Hdez MA Pre-visit Gap Closure [...] on file Legal Sex Male 9:58 PM CARE REP Gender Identity Not on file Sexual Orientation Not on file documented as of this encounter Functional Status * RETIRED Are you deaf or do you have serious difficulty hearing Answer Date of Assessment Author Status No 10/02/2021 12:38 PM CARE REP Acti ve * RETIRED Are you blind or do you have serious difficulty seeing, even when wearing glasses? Answer Date of Assessment Author Status No 10/02/2021 12:38 PM CARE REP Acti ve * Do you have serious difficulty walking or climbing stairs? Answer Date of Assessment Author Status No 10/02/2021 12:38 PM CARE REP Annette Jorge R Susan Active * Do you have difficulty dressing or bathing? Answer Date of Assessment Author Status No 10/02/2021 12:38 PM CARE REP Annette Jorge R N Active * Because of a physical, mental, or emotional condition, do you have difficulty doing errands alone such as visiting a doctor's office or shopping? Answer Date of Assessment Author Status No 10/02/2021 12:38 PM CARE REP Annette Jorge R Susan Active documented as of this encounter Mental Status * Because of a physical, mental, or emotional condition, do you have serious difficulty concentrating, remembering, or making decisions? Answer Entry Date Author Status No 10/02/2021 12:38 PM CARE REP Annette Jorge, R N Active documented in [...] Medical [facility] Family [facility] Internal [facility] - [place] [id number] [place] [phone] [place] [address] [place] [address] 10/22/2025 9:15 AM CARE REP Office Visit [facility] [address] Mily Gan MD [place] [address] [place], [place] [phone] documented as of this encounter Goals Goal [...] documented as of this encounter Care Teams Vp Rheumatology Relationship Specialty [place] [address] [facility], [address] [place] [address] PCP - General Nurse Practitioner Family 02/10/2301/04 documented as of this encounter
--- OUTSIDE RECORDS SUMMARY | 2024-11-02 09:13 | XMS_ITS | Encounter Summary ---
Author Organization [facility] Address [address] [place] [address]. [place], [place] [address] [place] [address] Care Team Providers Care Java Project Manager Name Role Phone Lorie Chan MD Primary Care Provider [phone] Reason for Visit * Reason Comments Shoulder Pain * Physical Therapy (Routine) - Closed Specialty Diagnoses / Procedures Referred By Shelby jama Referred To Contact PHYSICAL THERAPY / [facility] Physical Therapy Diagnoses Pain in left shoulder Procedures Burak Garcia MD [address] [facility] [address] [place] [address] Phone: tel: fax: [place] [address] [place] [address] Phone: tel: fax: Referral ID Status Reason Start Date Expiration Date Visits Re quested Visits Authorized [id number] Closed 01/16/2023 01/17/2024 99 99 Encounter Details Date Type Department Care Team (Latest Contact Info) Description 01/25/2023 1:45 PM CDT - 01/25/2023 11:59 PM CDT Hospital Encounter [facility] [address] [place] [address] [place] [address] [place] [address] Shoulder Pain Discharge Disposition: Home [...] on file Legal Sex Male 9:58 PM GANG KNIFE FISH CHOPPER Gender Identity Not on file Sexual Orientation [...] Assessment Author Status No 10/02/2021 12:38 PM GANG KNIFE FISH CHOPPER Acti ve * RETIRED Are you blind or do you have serious difficulty seeing, even when wearing glasses? Answer Date of Assessment Author Status No 10/02/2021 12:38 PM GANG KNIFE FISH CHOPPER Acti ve * Do you have serious difficulty walking or climbing stairs? Answer Date of Assessment Author Status No 10/02/2021 12:38 PM GANG KNIFE FISH CHOPPER Annette Jorge R N Active * Do you have difficulty dressing or bathing? Answer Date of Assessment Author Status No 10/02/2021 12:38 PM GANG KNIFE FISH CHOPPER Annette Jorge R N Active * Because of a physical, mental, or emotional condition, do you have difficulty doing errands alone such as visiting a doctor's office or shopping? Answer Date of Assessment Author Status No 10/02/2021 12:38 PM GANG KNIFE FISH CHOPPER Annette Jorge R N Active documented as of this encounter Mental Status * Because of a physical, mental, or emotional condition, do you have serious difficulty concentrating, remembering, or making decisions? Answer Entry Date Author Status No 10/02/2021 12:38 PM GANG KNIFE FISH CHOPPER Annette Jorge R N Active documented in this encounter Discharge Instructions * Patient Instructions* [place], PT - 01/25/2023 1:45 PM CDT Access Code: [email or web address] URL: [email or web address] Date: 01/25/2023 Prepared by: Sherie Exercises Standing [...] 5/5, Flexion MMT 5/5 Therapeutic Exercise - 66589 Number of Minutes - 14420: 40 Exercise: back v wall flexion to [...] CENTER [facility] Internal Medicine [address] [address] [place] [address] [place] [address] 10/22/2025 9:15 AM GANG KNIFE FISH CHOPPER Office Visit [facility] [address] [place] [address] Mily Gan MD Three [facility] [address] [place] [address] documented as of this encounter Goals Goal [...] documented as of this encounter Care Teams Java Project Manager Relationship Specialty Start Date End Date Lorie Chan MD PCP - General INTERNAL MEDICINE 01/15/20 02/09/23 documented as of this encounter
--- OUTSIDE RECORDS SUMMARY | 2024-11-02 09:13 | XMS_ITS | Encounter Summary ---
Author Organization [facility] Address [address] [place] [address]. [place], [place] [address] [place] [address] Care Team Providers Care Servicing Rep Name Role Phone AkashCandis hedrick BETTY Primary Care Provider [phone] Encounter Details Date Type Department Care Team [...] on file Legal Sex Male 9:58 PM ELECTRONIC WARFARE SPECIALIST Gender Identity Not on file Sexual Orientation Not on file documented as of this encounter Functional Status * RETIRED Are you deaf or do you have serious difficulty hearing Answer Date of Assessment Author Status No 10/02/2021 12:38 PM ELECTRONIC WARFARE SPECIALIST Acti ve * RETIRED Are you blind or do you have serious difficulty seeing, even when wearing glasses? Answer Date of Assessment Author Status No 10/02/2021 12:38 PM ELECTRONIC WARFARE SPECIALIST Actmonique ve * Do you have serious difficulty walking or climbing stairs? Answer Date of Assessment Author Status No 10/02/2021 12:38 PM ELECTRONIC WARFARE SPECIALIST Annette Jorge R N Active * Do you have difficulty dressing or bathing? Answer Date of Assessment Author Status No 10/02/2021 12:38 PM ELECTRONIC WARFARE SPECIALIST Annette Jorge R N Active * Because of a physical, mental, or emotional condition, do you have difficulty doing errands alone such as visiting a doctor's office or shopping? Answer Date of Assessment Author Status No 10/02/2021 12:38 PM ELECTRONIC WARFARE SPECIALIST Annette Jorge R N Active documented as of this encounter Mental Status * Because of a physical, mental, or emotional condition, do you have serious difficulty concentrating, remembering, or making decisions? Answer Entry Date Author Status No 10/02/2021 12:38 PM ELECTRONIC WARFARE SPECIALIST Annette Jorge R N Active documented in this encounter Plan of Treatment Upcoming Encounters Date Type Department Care Team (Late st Contact Info) Description 01/27/2025 7:00 AM CDT Office Visit [facility] Family & Internal Medicine [facility] [address] [place] [address] Ilir Nelson PA [address] [place] [phone] 10/22/2025 9:15 AM ELECTRONIC WARFARE SPECIALIST Office Visit [facility] [address] Mily Gan MD [address] [address] documented as of this encounter Goals Goal [...] documented as of this encounter Care Teams Servicing Rep Relationship Specialty [place] [address] [facility] [facility] [place] [address] PCP - General Nurse Practitioner Family 02/10/2301/04 documented as of this encounter
--- OUTSIDE RECORDS SUMMARY | 2024-11-02 09:13 | XMS_ITS | Encounter Summary ---
Author Organization [facility] Address [address] [place] [address]. [place] [address] [place] [address] Care Team Providers Care Program Instructor Name Role Phone Lorie Chan MD Primary Care Provider Encounter Details Date Type Department Care Team (Late st Contact Info) Description 08/17/[address] [address] [place], [place] [phone] Federico Mayer MD [address] [facility] [address] [place] [address] Social History Tobacco Use Types Packs/Day Years [...] on file Legal Sex Male 9:58 PM SUPPORT WORKER Gender Identity Not on file Sexual [...] Assessment Author Status No 10/02/2021 12:38 PM SUPPORT WORKER Acti ve * RETIRED Are you blind or do you have serious difficulty seeing, even when wearing glasses? Answer Date of Assessment Author Status No 10/02/2021 12:38 PM SUPPORT WORKER Acti ve * Do you have serious difficulty walking or climbing stairs? Answer Date of Assessment Author Status No 10/02/2021 12:38 PM SUPPORT WORKER Annette Jorge R N Active * Do you have difficulty dressing or bathing? Answer Date of Assessment Author Status No 10/02/2021 12:38 PM SUPPORT WORKER Annette Jorge R N Active * Because of a physical, mental, or emotional condition, do you have difficulty doing errands alone such as visiting a doctor's office or shopping? Answer Date of Assessment Author Status No 10/02/2021 12:38 PM SUPPORT WORKER Annette Jorge R N Active documented as of this encounter Mental Status * Because of a physical, mental, or emotional condition, do you have serious difficulty concentrating, remembering, or making decisions? Answer Entry Date Author Status No 10/02/2021 12:38 PM SUPPORT WORKER Annette Jorge R N Active documented in this encounter Plan of Treatment Upcoming Encounters Date Type Department Care Team (Late st Contact Info) Description 01/27/2025 7:00 AM CDT Office Visit [facility] Family & Internal Medicine - [place] [address] [place] [address] Ilir Nelson PA [address] [place] [phone] 10/22/2025 9:15 AM SUPPORT WORKER Office Visit [facility] [address] Mily Gan MD Three [address] [address] documented as of this encounter Goals Goal [...] Visit Diagnoses Diagnosis Status post Neel procedure ([facility]) Perforated diverticulum documented in this encounter Additional Health Concerns Assessment Noted Time PHQ-9 Depression Total Score: 1 01/12/20 22 8:53 AM SUPPORT WORKER documented as of this encounter Care Teams Program Instructor Relationship Specialty Start Date End Date Lorie Chan MD PCP - General INTERNAL MEDICINE 01/15/20 02/09/23 documented as of this encounter
--- OUTSIDE RECORDS SUMMARY | 2024-11-02 09:13 | XMS_ITS | Encounter Summary ---
Author Organization [facility] Address [address] [place] [address]. [place] [address] [place] [address] Care Team Providers Care Power Tool Repair Technician Name Role Phone Lorie Chan MD Primary Care Provider [phone] Reason for Visit * Reason Onset Date Comments Medication Problem 01/18/2022 Encounter Details Date Type Department Care Team (Late st Contact Info) Description 01/18/2022 Telephone [facility] Family & Internal Medicine [facility] [address] [place] [address] [place] Chan [place] [address] [place] [address] Medication Problem Social History Tobacco Use [...] on file Legal Sex Male 9:58 PM ECONOMIC DEVELOPMENT DIRECTOR Gender Identity Not on file Sexual Orientation Not on file COVID-19 Exposure Response Date Recorded In the last 10 days, have yo u been in contact with someone who was confirmed or suspected to have Coronavirus/COVID-19? No / Unsure 01/11/2022 8:25 AM ECONOMIC DEVELOPMENT DIRECTOR documented as of this encounter Functional Status * RETIRED Are you deaf or do you have serious difficulty hearing Answer Date of Assessment Author Status No 10/02/2021 12:38 PM ECONOMIC DEVELOPMENT DIRECTOR Acti ve * RETIRED Are you blind or do you have serious difficulty seeing, even when wearing glasses? Answer Date of Assessment Author Status No 10/02/2021 12:38 PM ECONOMIC DEVELOPMENT DIRECTOR Acti ve * Do you have serious difficulty walking or climbing stairs? Answer Date of Assessment Author Status No 10/02/2021 12:38 PM ECONOMIC DEVELOPMENT DIRECTOR Annette Jorge, R N Active * Do you have difficulty dressing or bathing? Answer Date of Assessment Author Status No 10/02/2021 12:38 PM ECONOMIC DEVELOPMENT DIRECTOR Annette Jorge, R N Active * Because of a physical, mental, or emotional condition, do you have difficulty doing errands alone such as visiting a doctor's office or shopping? Answer Date of Assessment Author Status No 10/02/2021 12:38 PM ECONOMIC DEVELOPMENT DIRECTOR Annette Jorge, R N Active documented as of this encounter Mental Status * Because of a physical, mental, or emotional condition, do you have serious difficulty concentrating, remembering, or making decisions? Answer Entry Date Author Status No 10/02/2021 12:38 PM ECONOMIC DEVELOPMENT DIRECTOR Annette Jorge, R N Active documented in [...] - 01/18/2022 10:51 AM CDT PT CB# [phone]\[facility] PT RECEIVED AMLODIPINE 5MG HE STATES HE DOESN'T TAKE THAT MED ANY LONGER HE STATES HE TAKES METOPROLOL SUCCINATE ER 50MG/90 DAYS SUPPLY PLEASE ADVICE documented in this encounter Plan of Treatment Upcoming Encounters Date Type Department Care Team (Late st Contact Info) Description 01/27/2025 7:00 AM CDT Office Visit [facility] Family & Internal Medicine [facility] [address] [place] [address] [place] [id number] [place] [address] 10/22/2025 9:15 AM ECONOMIC DEVELOPMENT DIRECTOR Office Visit [facility] [address] Mily Gan MD [address] [phone] documented as of this encounter Goals Goal [...] Total Score: 1 01/12/20 22 8:53 AM ECONOMIC DEVELOPMENT DIRECTOR documented as of this encounter Care Teams Power Tool Repair Technician Relationship Specialty Start Date End Date Lorie Chan MD PCP - General INTERNAL MEDICINE 01/15/20 02/09/23 documented as of this encounter
--- OUTSIDE RECORDS SUMMARY | 2024-11-02 09:13 | XMS_ITS | Encounter Summary ---
Author Organization [facility] Address [address] [place] [address]. [place], [place] [address] [place] [address] Care Team Providers Care Chain Forming Machine Operator Name Role Phone Jeremy Castanon MD Primary Care Provider [phone] Reason for Visit * Reason Comments New [...] Expiration Date V isits Requested Visits Authorized [id number] Closed Specialty Services 2022 2023 99 99 Encounter Details Date Type Department Care Team (Latest Contact Info) Description 07/25/2022 1:40 PM CDT Office Visit [facility] Multispecialty Care - [address], [address] [place] [address] Selena Harper NP [address] [place] [address] New Patient (Wakes up about [...] on file Legal Sex Male 9:58 PM UX UI DESIGNER Gender Identity Not on file Sexual [...] Assessment Author Status No 10/02/2021 12:38 PM UX UI DESIGNER Acti ve * RETIRED Are you blind or do you have serious difficulty seeing, even when wearing glasses? Answer Date of Assessment Author Status No 10/02/2021 12:38 PM UX UI DESIGNER Acti ve * Do you have serious difficulty walking or climbing stairs? Answer Date of Assessment Author Status No 10/02/2021 12:38 PM UX UI DESIGNER Annette Jorge R Susan Active * Do you have difficulty dressing or bathing? Answer Date of Assessment Author Status No 10/02/2021 12:38 PM UX UI DESIGNER Annette Jorge R N Active * Because of a physical, mental, or emotional condition, do you have difficulty doing errands alone such as visiting a doctor's office or shopping? Answer Date of Assessment Author Status No 10/02/2021 12:38 PM UX UI DESIGNER Annette Jorge, R N Active documented as of this encounter Mental Status * Because of a physical, mental, or emotional condition, do you have serious difficulty concentrating, remembering, or making decisions? Answer Entry Date Author Status No 10/02/2021 12:38 PM UX UI DESIGNER Annette Jorge, R N Active documented in [...] Everywhere. * Benign Prostatic Hyperplasia (Enlarged Prostate) (Congolese) documented in this encounter Progress Notes * [...] biopsy performed by Federico Mayer MD at [facility] OR ??? COLOSTOMY reversable ??? HERNIA REPAIR Right [facility] ??? HERNIA REPAIR Left [facility] ??? NECK/CHEST PROCEDURE UNLISTED Right [facility], re-built right side of neck. ??? SMALL INTESTINE SURGERY bowel rupture ??? TOTAL KNEE ARTHROPLASTY Bilateral ZANA Partial KR, done @ [facility] Social History Socioeconomic History ??? Marital status: [...] floppy iris syndrome, and patient should inform fire behavior analyst prior to eye procedures. -Return to clinic [...] Family & Internal Medicine [facility] [address] [place] [address] [place] [address] [place] [address] 10/22/2025 9:15 AM UX UI DESIGNER Office Visit [facility] [address] Mily Gan MD [address] [facility] [address] [place] [address] Scheduled Orders Name Type Priority [...] CATCH PROCEDURE / Unknown 07/25/2022 Selena Harper MINE ENGINEER URINE ORDERABLES Final Result [facility] [place] [address] [place] [address], documented in this encounter Visit Diagnoses Diagnosis BPH with obstruction/lower urinary tract symptoms- Primary Hypertrophy of prostate with urinary obstruction and other lower urinary tract symptoms (LUTS) Nocturia documented in this encounter Additional Health Concerns Assessment Noted Time PHQ-9 Depression Total Score: 1 01/12/20 22 8:53 AM UX UI DESIGNER documented as of this encounter Care Teams Chain Forming Machine Operator Relationship Specialty Start Date End Date Jeremy Castanon MD PCP - General INTERNAL MEDICINE 01/15/20 02/09/23 documented as of this encounter
--- OUTSIDE RECORDS SUMMARY | 2024-11-02 09:13 | XMS_ITS | Encounter Summary ---
Author Organization [facility] Address [address] [place] [address]. [place] [address] [place] [address] Care Team Providers Care Dozer Operator Name Role Phone Jeremy Castanon MD Primary Care Provider [phone] Reason for Visit * Reason Comments Postop Followup LAP REVERSAL CORREA (09/22/2022) * Consultation (Routine) - Closed Specialty Diagnoses / Procedures Referred By Shelby jama Referred To Contact SURGERY Diagnoses 3 month follow up (also to discuss colonoscopy) Procedures FOLLOW UP Federico Amador MD [address] [place] [address] Phone: tel: fax: Federico Amador MD [address] [place] [address] Phone: tel: fax: Referral ID Status Reason Start Date Expiration Date Visits Re quested Visits Authorized [id number] Closed 07/23/2021 3 3 Encounter Details Date Type Department Care Team (Late st Contact Info) Description 12/24/2021 2:00 PM LINING FOLDER Office Visit [facility] General Surgery [address], [address] [place] [address] Federico Amador MD [address] [place] [address] Postop Followup (LATRICE CORREA(09/22/2022)) Social [...] on file Legal Sex Male 9:58 PM LINING FOLDER Gender Identity Not on file Sexual Orientation Not on file COVID-19 Exposure Response Date Recorded In the last 10 days, have yo u been in contact with someone who was confirmed or suspected to have Coronavirus/COVID-19? No / Unsure 12/24/2021 1:46 PM LINING FOLDER documented as of this encounter Last Filed Vital Signs Vital Sign Reading Time Taken Comments Blood Pressure 122/66 12/24/2021 1:57 PM LINING FOLDER Pulse 76 12/24/2021 1:57 PM LINING FOLDER Temperature 35.6 ??C (96.1 ??F) 12/24/2021 1:57 PM CS T Respiratory Rate 16 12/24/2021 1:57 PM LINING FOLDER Oxygen Saturation 98% 12/24/2021 1:57 PM LINING FOLDER Inhaled Oxygen Concentration - - Weight 77.1 kg (170 lb) 12/24/2021 1:57 PM LINING FOLDER Height 170.2 cm (5' 7 ) 12/24/2021 1:57 PM LINING FOLDER Body Mass Index 26.63 12/24/2021 1:57 PM LINING FOLDER documented in this encounter Functional Status * RETIRED Are you deaf or do you have serious difficulty hearing Answer Date of Assessment Author Status No 10/02/2021 12:38 PM LINING FOLDER Acti ve * RETIRED Are you blind or do you have serious difficulty seeing, even when wearing glasses? Answer Date of Assessment Author Status No 10/02/2021 12:38 PM LINING FOLDER Aniya ve * Do you have serious difficulty walking or climbing stairs? Answer Date of Assessment Author Status No 10/02/2021 12:38 PM LINING FOLDER Annette Jorge R N Active * Do you have difficulty dressing or bathing? Answer Date of Assessment Author Status No 10/02/2021 12:38 PM LINING FOLDER Annette Jorge R N Active * Because of a physical, mental, or emotional condition, do you have difficulty doing errands alone such as visiting a doctor's office or shopping? Answer Date of Assessment Author Status No 10/02/2021 12:38 PM LINING FOLDER Annette Jorge R N Active documented as of this encounter Mental Status * Because of a physical, mental, or emotional condition, do you have serious difficulty concentrating, remembering, or making decisions? Answer Entry Date Author Status No 10/02/2021 12:38 PM LINING FOLDER Annette Jorge R N Active documented in [...] biopsy performed by Federico Amador MD at [facility] OR ??? COLOSTOMY reversable ??? HERNIA REPAIR Right [facility] AroldoKarthik Chris ??? HERNIA REPAIR [facility] ??? NECK/CHEST PROCEDURE UNLISTED Right [facility], re-built right side of neck. ??? SMALL INTESTINE SURGERY bowel rupture ??? TOTAL KNEE ARTHROPLASTY Bilateral ZANA Partial KR, done @ [facility] Social History Tobacco Use ??? Smoking [...] Referring Provider: Dustin PCP: JEREMY CASTANON MD NG FOLDER documented in this encounter Plan of Treatment Upcoming Encounters Date Type Department Care Team (Late st Contact Info) Description 01/27/2025 7:00 AM CDT Office Visit [facility] Family & Internal Medicine [facility] [address] [place] [address] [place] [address] [place], [place] [phone] 10/22/2025 9:15 AM LINING FOLDER Office Visit [facility] [address] Mily Gan MD [address] [phone] documented as of this encounter Goals Goal Patient Goal Type Associated Problems Recent Progress Patient-Stated? Author Establish Plan for Symptom Monitoring General Jesi Ye RN Monitor - demonstrates appropriate technique of care of indwelling urinary catheter and new ostomy General Jesi Ye RN Patient will return to prior living situation and remain independent in ADLs upon discharge from [facility] Aliya Stokes RN documented as of this encounter Visit Diagnoses Diagnosis Postoperative examination- Primary Follow-up examination, following unspecified surgery documented in this encounter Care Teams Dozer Operator Relationship Specialty Start Date End Date Jeremy Castanon MD PCP - General INTERNAL MEDICINE 01/15/20 02/09/23 documented as of this encounter
--- OUTSIDE RECORDS SUMMARY | 2024-11-02 09:13 | XMS_ITS | Encounter Summary ---
Author Organization [facility] Address [address] [place] [address]. [place], [place] [address] [place] [address] Care Team Providers Care Pedodontist Name Role Phone Lorie Chan MD Primary Care Provider [phone] Encounter Details Date Type Department Care Team (Latest Contact Info) Description 01/06/2022 7:27 AM COMMUNICATIONS LEAD - 01/06/2022 11:59 PM [facility] Hospital Encounter [facility] [address] [place] [address] [place] [address] [place], [place] [phone] Discharge Disposition: Home or Self Care (Routine [...] file Legal Sex Male 9:58 PM COMMUNICATIONS LEAD Gender Identity Not on file Sexual Orientation Not on file COVID-19 Exposure Response Date Recorded In the last 10 days, have yo u been in contact with someone who was confirmed or suspected to have Coronavirus/COVID-19? No / Unsure 01/06/2022 7:27 AM COMMUNICATIONS LEAD documented as of this encounter Functional Status * RETIRED Are you deaf or do you have serious difficulty hearing Answer Date of Assessment Author Status No 10/02/2021 12:38 PM COMMUNICATIONS LEAD Acti ve * RETIRED Are you blind or do you have serious difficulty seeing, even when wearing glasses? Answer Date of Assessment Author Status No 10/02/2021 12:38 PM COMMUNICATIONS LEAD Acti ve * Do you have serious difficulty walking or climbing stairs? Answer Date of Assessment Author Status No 10/02/2021 12:38 PM COMMUNICATIONS LEAD Annette Jorge R N Active * Do you have difficulty dressing or bathing? Answer Date of Assessment Author Status No 10/02/2021 12:38 PM COMMUNICATIONS LEAD Annette Jorge R N Active * Because of a physical, mental, or emotional condition, do you have difficulty doing errands alone such as visiting a doctor's office or shopping? Answer Date of Assessment Author Status No 10/02/2021 12:38 PM COMMUNICATIONS LEAD Annette Jorge R N Active documented as of this encounter Mental Status * Because of a physical, mental, or emotional condition, do you have serious difficulty concentrating, remembering, or making decisions? Answer Entry Date Author Status No 10/02/2021 12:38 PM COMMUNICATIONS LEAD Annette Jorge R N Active documented in [...] Family & Internal Medicine [facility] [address] [place] [address] Ilir Nelson PA [address] [place] [phone] 10/22/2025 9:15 AM COMMUNICATIONS LEAD Office Visit [facility] [address] [place] [phone] Mily Gan MD [address] [place] [address] documented as of this encounter Goals Goal Patient Goal Type Associated Problems Recent Progress Patient-Stated? Author Establish Plan for Symptom Monitoring General Jesi Ye RN Monitor - demonstrates appropriate technique of care of indwelling urinary catheter and new ostomy General Jesi Ye, RN Patient will return to prior living situation and remain independent in ADLs upon discharge from [facility] No Aliya Stokes RN documented as of this encounter Procedures Procedure Name Priority Date/Time Associated Diagnosis Comments COMPREHENSIVE METABOLIC PANEL Routine 01/06/2022 7:50 AM COMMUNICATIONS LEAD Primary hypertension CBC W/DIFF AUTOMATED Routine 01/06/2022 7:50 AM COMMUNICATIONS LEAD Primary hypertension documented in this encounter Results * (ABNORMAL) COMPREHENSIVE METABOLIC PANEL (01/06/2022 7:50 AM COMMUNICATIONS LEAD) [facility] GLUCOSE 102(H) 70 - 99 MG/DL 01/06/2022 8:49 AM [facility] BUN 14 7 - 18 MG/DL 01/06/2022 8:49 AM [facility] CREATININE S/P/B 0.76 0.7 - 1.3 MG/DL 01/06/2022 8:49 AM [facility] SODIUM S/P/B 143 136 - 145 MMOL/L 01/06/2022 8:49 AM [facility] POTASSIUM S/P/B 4.5 3.5 - 5.1 MMOL/L 01/06/2022 8:49 AM [facility] CHLORIDE S/P/B 108 100 - 108 MMOL/L 01/06/2022 8:49 AM [facility] CO2 29.3 21 - 32 MMOL/L 01/06/2022 8:49 AM [facility] CALCIUM S/P/B 8.5 8.5 - 10.1 MG/DL 01/06/2022 8:49 AM [facility] BILIRUBIN TOTAL S/P/B 0.7 0.2 - 1.2 MG/DL 01/06/2022 8:49 AM [facility] TOTAL PROTEIN S/P/B 7.2 6.4 - 8.2 G/DL 01/06/2022 8:49 AM [facility] ALBUMIN S/P/B 3.7 3.4 - 5.0 G/DL 01/06/2022 8:49 AM [facility] AST 28 15 - 37 U/L 01/06/2022 8:49 AM [facility] ALT 40 16 - 60 U/L 01/06/2022 8:49 AM [facility] ALKALINE PHOSPHATASE S/P/B 56 50 - 136 U/L 01/06/2022 8:49 AM [facility] ANION GAP 5.7 5 - 15 MMOL/L 01/06/2022 8:49 AM [facility] BUN CREATININE RATIO 18.4 6 - 26 01/06/2022 8:49 AM [facility] A/G RATIO 1.1 1.0 - 2.0 RATIO 01/06/2022 8:49 AM [facility] EGFR NON-AFR. AMER. >90 >90 ML/MIN/1.7 3 M2 01/06/2022 8:49 AM [facility] EGFR AFR. AMER. >90 >90 ML/MIN/1.7 3 M2 01/06/2022 8:49 AM [facility] Comment: NOTE: eGFR is not calculated for patients <18 years of age. This is an estimated GFR (CKD EPI) and should not be used for calculating drug doses. 01/06/2022 7:50 AM COMMUNICATIONS LEAD Lorie Chan MD LABORATORY Final Result [facility] [address] [place] [address], [place] [phone] * (ABNORMAL) CBC W/DIFF AUTOMATED (01/06/2022 7:50 AM COMMUNICATIONS LEAD) WBC 4.8 4.4 - 11.0 x10'3/uL 01/06/2022 8:33 AM [facility] RBC 4.39(L) 4.50 - 5.90 x10'6/uL 01/06/2022 8:33 AM [facility] HGB 14.2 14.0 - 17.5 G/DL 01/06/2022 8:33 AM [facility] HCT 42.2 41.5 - 50.4 % 01/06/2022 8:33 AM [facility] MCV 96.1(H) 80.0 - 96.0 FL 01/06/2022 8:33 AM [facility] MCH 32.3(H) 26.5 - 31.4 PG 01/06/2022 8:33 AM [facility] MCHC 33.6 31.9 - 34.8 G/DL 01/06/2022 8:33 AM [facility] RDW 13.2 12.3 - 14.3 % 01/06/2022 8:33 AM [facility] PLT 245 151 - 353 x10'3/uL 01/06/2022 8:33 AM [facility] MPV 10.7 9.7 - 11.9 FL 01/06/2022 8:33 AM [facility] RBC MORPHOLOGY NORMAL 01/06/2022 8:33 AM [facility] PLT MORPH. NORMAL 01/06/2022 8:33 AM [facility] WBC MORPHOLOGY NORMAL 01/06/2022 8:33 AM [facility] LYMPHOCYTES % 35.3 15.8 - 45.0 % 01/06/2022 8:33 AM [facility] NEUTROPHILS % 50.0 42.1 - 71.9 % 01/06/2022 8:33 AM [facility] MONOCYTES % 11.5 5.7 - 12.5 % 01/06/2022 8:33 AM [facility] EOSINOPHILS 1.7 0.0 - 5.6 % 01/06/2022 8:33 AM [facility] BASOPHILS 1.3 0.0 - 1.3 % 01/06/2022 8:33 AM [facility] ABS. NEUTROPHILS 2.40 1.40 - 6.00 x10'3/uL 01/06/2022 8:33 AM [facility] IMMATURE GRANS % 0.2 0.0 - 0.5 % 01/06/2022 8:33 AM [facility] ABS. LYMPHOCYTES 1.69 0.80 - 4.70 x10'3/uL 01/06/2022 8:33 AM [facility] 01/06/2022 7:50 AM COMMUNICATIONS LEAD Lorie Chan MD LABORATORY Final Result [facility] [address] [place] [address], documented in this encounter Visit Diagnoses Diagnosis Primary hypertension Unspecified essential hypertension documented in this encounter Additional Health Concerns Assessment Noted Time PHQ-9 Depression Total Score: 0 01/05/20 22 12:19 PM COMMUNICATIONS LEAD documented as of this encounter Care Teams Pedodontist Relationship Specialty Start Date End Date Lorie Chan MD PCP - General INTERNAL MEDICINE 01/15/20 02/09/23 documented as of this encounter
--- OUTSIDE RECORDS SUMMARY | 2024-11-02 09:13 | XMS_ITS | Encounter Summary ---
Author Organization [facility] Address [address] [place] [address]. [place], [place] [address] [place] [address] Care Team Providers Care Flavoring Oil Filterer Name Role Phone Lorie Chan MD Primary Care Provider [phone] Encounter Details Date Type Department Care Team [...] on file Legal Sex Male 9:58 PM BARREL TESTER Gender Identity Not on file Sexual Orientation Not on file documented as of this encounter Functional Status * RETIRED Are you deaf or do you have serious difficulty hearing Answer Date of Assessment Author Status No 10/02/2021 12:38 PM BARREL TESTER Acti ve * RETIRED Are you blind or do you have serious difficulty seeing, even when wearing glasses? Answer Date of Assessment Author Status No 10/02/2021 12:38 PM BARREL TESTER Acti ve * Do you have serious difficulty walking or climbing stairs? Answer Date of Assessment Author Status No 10/02/2021 12:38 PM BARREL TESTER Annette Jorge R N Active * Do you have difficulty dressing or bathing? Answer Date of Assessment Author Status No 10/02/2021 12:38 PM BARREL TESTER Annette Jorge R N Active * Because of a physical, mental, or emotional condition, do you have difficulty doing errands alone such as visiting a doctor's office or shopping? Answer Date of Assessment Author Status No 10/02/2021 12:38 PM BARREL TESTER Annette Jorge R N Active documented as of this encounter Mental Status * Because of a physical, mental, or emotional condition, do you have serious difficulty concentrating, remembering, or making decisions? Answer Entry Date Author Status No 10/02/2021 12:38 PM BARREL TESTER Annette Jorge R N Active documented in this encounter Plan of Treatment Upcoming Encounters Date Type Department Care Team (Late st Contact Info) Description 01/27/2025 7:00 AM CDT Office Visit [facility] Family & Internal Medicine [facility] [address] [place] [address] [place] [address] [place], [place] [phone] 10/22/2025 9:15 AM BARREL TESTER Office Visit [facility] [address] Mily Gan MD [address] [address] documented as of this encounter Goals Goal Patient Goal Type Associated Problems Recent Progress Patient-Stated? Author Establish Plan for Symptom Monitoring General Jesi Ye RN Monitor - demonstrates appropriate technique of care of indwelling urinary catheter and new ostomy General No Bernardini, Jesi J, RN Patient will return to prior living situation and remain independent in ADLs upon discharge from [facility] Aliya Sotelo RN documented as of this encounter Visit Diagnoses Not on filedocumented in this encounter Additional Health Concerns Assessment Noted Time PHQ-9 Depression Total Score: 1 01/12/20 22 8:53 AM BARREL TESTER documented as of this encounter Care Teams Flavoring Oil Filterer Relationship Specialty Start Date End Date Lorie Chan MD PCP - General INTERNAL MEDICINE 01/15/20 02/09/23 documented as of this encounter
--- OUTSIDE RECORDS SUMMARY | 2024-11-02 09:13 | XMS_ITS | Encounter Summary ---
Author Organization [facility] Address [address] [place] [address]. [place], [place] [address] [place] [address] Care Team Providers Care Screen Printer Name Role Phone Lorie Chan MD Primary Care Provider [phone] Reason for Visit * Reason Onset Date Comments Pre-visit Gap Closure 01/19/2023 Encounter Details Date Type Department Care Team (Late st Contact Info) Description 01/19/2023 Patient Outreach [facility] Family & Internal Medicine [address] [address] Babar Baumann MA Pre-visit Gap [...] on file Legal Sex Male 9:58 PM PAEDIATRIC SURGEON Gender Identity Not on file Sexual Orientation [...] Assessment Author Status No 10/02/2021 12:38 PM PAEDIATRIC SURGEON Acti ve * RETIRED Are you blind or do you have serious difficulty seeing, even when wearing glasses? Answer Date of Assessment Author Status No 10/02/2021 12:38 PM PAEDIATRIC SURGEON Acti ve * Do you have serious difficulty walking or climbing stairs? Answer Date of Assessment Author Status No 10/02/2021 12:38 PM PAEDIATRIC SURGEON Annette Jorge R N Active * Do you have difficulty dressing or bathing? Answer Date of Assessment Author Status No 10/02/2021 12:38 PM PAEDIATRIC SURGEON Annette Jorge R N Active * Because of a physical, mental, or emotional condition, do you have difficulty doing errands alone such as visiting a doctor's office or shopping? Answer Date of Assessment Author Status No 10/02/2021 12:38 PM PAEDIATRIC SURGEON Annette Jorge R N Active documented as of this encounter Mental Status * Because of a physical, mental, or emotional condition, do you have serious difficulty concentrating, remembering, or making decisions? Answer Entry Date Author Status No 10/02/2021 12:38 PM PAEDIATRIC SURGEON Annette Jorge R N Active documented in [...] Description 01/27/2025 7:00 AM CDT Office Visit [facility] Family & Internal Medicine [facility] [address] [place] [address] [place] [address] [place], [place] [phone] 10/22/2025 9:15 AM PAEDIATRIC SURGEON Office Visit [facility] [address] Mily Gan MD [facility] [address] [place] [address] documented as of this encounter [...] Total Score: 1 01/12/20 22 8:53 AM PAEDIATRIC SURGEON documented as of this encounter Care Teams Screen Printer Relationship Specialty Start Date End Date Lorie Chan MD PCP - General INTERNAL MEDICINE 01/15/20 02/09/23 documented as of this encounter
--- OUTSIDE RECORDS SUMMARY | 2024-11-02 09:13 | XMS_ITS | Encounter Summary ---
Author Organization [facility] Address [address] [place] [address]. [place], [place] [address] [place] [address] Care Team Providers Care Data Acquisition Technician Name Role Phone Lorie Chan MD Primary Care Provider [phone] Encounter Details Date Type Department Care Team [...] on file Legal Sex Male 9:58 PM EROSION CONTROL SPECIALIST Gender Identity Not on file Sexual Orientation Not on file COVID-19 Exposure Response Date Recorded In the last 10 days, have yo u been in contact with someone who was confirmed or suspected to have Coronavirus/COVID-19? No / Unsure 01/11/2022 8:25 AM EROSION CONTROL SPECIALIST documented as of this encounter Functional Status * RETIRED Are you deaf or do you have serious difficulty hearing Answer Date of Assessment Author Status No 10/02/2021 12:38 PM EROSION CONTROL SPECIALIST Acti ve * RETIRED Are you blind or do you have serious difficulty seeing, even when wearing glasses? Answer Date of Assessment Author Status No 10/02/2021 12:38 PM EROSION CONTROL SPECIALIST Acti ve * Do you have serious difficulty walking or climbing stairs? Answer Date of Assessment Author Status No 10/02/2021 12:38 PM EROSION CONTROL SPECIALIST Annette Jorge, R N Active * Do you have difficulty dressing or bathing? Answer Date of Assessment Author Status No 10/02/2021 12:38 PM EROSION CONTROL SPECIALIST Annette Jorge, R N Active * Because of a physical, mental, or emotional condition, do you have difficulty doing errands alone such as visiting a doctor's office or shopping? Answer Date of Assessment Author Status No 10/02/2021 12:38 PM EROSION CONTROL SPECIALIST Annette Jorge, R N Active documented as of this encounter Mental Status * Because of a physical, mental, or emotional condition, do you have serious difficulty concentrating, remembering, or making decisions? Answer Entry Date Author Status No 10/02/2021 12:38 PM EROSION CONTROL SPECIALIST Annette Jorge, R N Active documented in this encounter Plan of Treatment Upcoming Encounters Date Type Department Care Team (Late st Contact Info) Description 01/27/2025 7:00 AM CDT Office Visit [facility] Family & Internal Medicine [address] [address] Ilir Nelson PA [address] [place] [address] 10/22/2025 9:15 AM EROSION CONTROL SPECIALIST Office Visit [facility] [address] Mily Gan MD [address] [address] documented as of this encounter Goals Goal [...] Total Score: 1 01/12/20 22 8:53 AM EROSION CONTROL SPECIALIST documented as of this encounter Care Teams Data Acquisition Technician Relationship Specialty Start Date End Date Lorie Chan MD PCP - General INTERNAL MEDICINE 01/15/20 02/09/23 documented as of this encounter
--- OUTSIDE RECORDS SUMMARY | 2024-11-02 09:13 | XMS_ITS | Encounter Summary ---
Author Organization [facility] Address [address] [place] [address]. [place], [place] [address] [place] [address] Care Team Providers Care Control Systems Specialist Name Role Phone Lorie Chan MD Primary Care Provider [phone] Encounter Details Date Type Department Care Team [...] on file Legal Sex Male 9:58 PM FOUNTAIN CLERK Gender Identity Not on file Sexual Orientation Not on file documented as of this encounter Functional Status * RETIRED Are you deaf or do you have serious difficulty hearing Answer Date of Assessment Author Status No 10/02/2021 12:38 PM FOUNTAIN CLERK Acti ve * RETIRED Are you blind or do you have serious difficulty seeing, even when wearing glasses? Answer Date of Assessment Author Status No 10/02/2021 12:38 PM FOUNTAIN CLERK Acti ve * Do you have serious difficulty walking or climbing stairs? Answer Date of Assessment Author Status No 10/02/2021 12:38 PM FOUNTAIN CLERK Annette Jorge R N Active * Do you have difficulty dressing or bathing? Answer Date of Assessment Author Status No 10/02/2021 12:38 PM FOUNTAIN CLERK Annette Jorge R N Active * Because of a physical, mental, or emotional condition, do you have difficulty doing errands alone such as visiting a doctor's office or shopping? Answer Date of Assessment Author Status No 10/02/2021 12:38 PM FOUNTAIN CLERK Annette Jorge R N Active documented as of this encounter Mental Status * Because of a physical, mental, or emotional condition, do you have serious difficulty concentrating, remembering, or making decisions? Answer Entry Date Author Status No 10/02/2021 12:38 PM FOUNTAIN CLERK Annette Jorge R N Active documented in this encounter Plan of Treatment Upcoming Encounters Date Type Department Care Team (Late st Contact Info) Description 01/27/2025 7:00 AM CDT Office Visit [facility] Family & Internal Medicine [facility] [address] [place] [address] [place] [address] [place], [place] [phone] 10/22/2025 9:15 AM FOUNTAIN CLERK Office Visit [facility] [address] Mily Gan MD [address] [...] Total Score: 1 01/12/20 22 8:53 AM FOUNTAIN CLERK documented as of this encounter Care Teams Control Systems Specialist Relationship Specialty Start Date End Date Lorie Chan MD PCP - General INTERNAL MEDICINE 01/15/20 02/09/23 documented as of this encounter
--- OUTSIDE RECORDS SUMMARY | 2024-11-02 09:13 | XMS_ITS | Encounter Summary ---
Author Organization [facility] Address [address] [place] [address]. [place], [place] [phone] [place] [address] Care Team Providers Care Welfare Eligibility Interviewer Name Role Phone Lorie Chan MD Primary Care Provider [phone] Encounter Details Date Type Department Care Team [...] on file Legal Sex Male 9:58 PM PHARMACEUTICAL ANALYST Gender Identity Not on file Sexual [...] Assessment Author Status No 10/02/2021 12:38 PM PHARMACEUTICAL ANALYST Acti ve * RETIRED Are you blind or do you have serious difficulty seeing, even when wearing glasses? Answer Date of Assessment Author Status No 10/02/2021 12:38 PM PHARMACEUTICAL ANALYST Acti ve * Do you have serious difficulty walking or climbing stairs? Answer Date of Assessment Author Status No 10/02/2021 12:38 PM PHARMACEUTICAL ANALYST Annette Jorge R Susan Active * Do you have difficulty dressing or bathing? Answer Date of Assessment Author Status No 10/02/2021 12:38 PM PHARMACEUTICAL ANALYST Annette Jorge R N Active * Because of a physical, mental, or emotional condition, do you have difficulty doing errands alone such as visiting a doctor's office or shopping? Answer Date of Assessment Author Status No 10/02/2021 12:38 PM PHARMACEUTICAL ANALYST Annette Jorge R N Active documented as of this encounter Mental Status * Because of a physical, mental, or emotional condition, do you have serious difficulty concentrating, remembering, or making decisions? Answer Entry Date Author Status No 10/02/2021 12:38 PM PHARMACEUTICAL ANALYST Annette Jorge, R N Active documented in this encounter Plan of Treatment Upcoming Encounters Date Type Department Care Team (Late st Contact Info) Description 01/27/2025 7:00 AM CDT Office Visit [facility] Family & Internal Medicine [facility] [address] [place] [phone] Ilir Nelson PA [address] [place] [phone] 10/22/2025 9:15 AM PHARMACEUTICAL ANALYST Office Visit [facility] [address] Mily Gan MD [address] [phone] documented as of this encounter Goals Goal Patient Goal Type Associated Problems Recent Progress Patient-Stated? Author Establish Plan for Symptom Monitoring General No Jesi Cochran, RN Monitor - demonstrates appropriate technique of care of indwelling urinary catheter and new ostomy General No Jesi Cochran RN Patient will return to prior living situation and remain independent in ADLs upon discharge from hospital [facility] No Aliya Stokes RN documented as of this encounter Visit Diagnoses Not on filedocumented in this encounter Additional Health Concerns Assessment Noted Time PHQ-9 Depression Total Score: 0 01/24/20 8:04 AM CDT documented as of this encounter Care Teams Welfare Eligibility Interviewer Relationship Specialty Start Date End Date Lorie Chan MD PCP - General INTERNAL MEDICINE 01/15/20 02/09/23 documented as of this encounter
--- OUTSIDE RECORDS SUMMARY | 2024-11-02 09:13 | XMS_ITS | Encounter Summary ---
Author Organization [facility] Address [address] [place] [address]. [place] [address] [place] [address] Care Team Providers Care Senior Php Software Developer Name Role Phone Lorie Chan MD Primary Care Provider [phone] Reason for Visit * Reason Onset Date Comments Lab Order 07/13/2022 Encounter Details Date Type Department Care Team (Late st Contact Info) Description 07/13/2022 Telephone [facility] Family & Internal Medicine [facility] [address] [place] [address] [place] Chan [place] [phone] [place] [address] Lab Order Social History Tobacco Use [...] on file Legal Sex Male 9:58 PM PARTICLE BOARD SUPERVISOR Gender Identity Not on file Sexual Orientation Not on file documented as of this encounter Functional Status * RETIRED Are you deaf or do you have serious difficulty hearing Answer Date of Assessment Author Status No 10/02/2021 12:38 PM PARTICLE BOARD SUPERVISOR Acti ve * RETIRED Are you blind or do you have serious difficulty seeing, even when wearing glasses? Answer Date of Assessment Author Status No 10/02/2021 12:38 PM PARTICLE BOARD SUPERVISOR Acti ve * Do you have serious difficulty walking or climbing stairs? Answer Date of Assessment Author Status No 10/02/2021 12:38 PM PARTICLE BOARD SUPERVISOR Annette Jorge, R N Active * Do you have difficulty dressing or bathing? Answer Date of Assessment Author Status No 10/02/2021 12:38 PM PARTICLE BOARD SUPERVISOR Annette Jorge, R N Active * Because of a physical, mental, or emotional condition, do you have difficulty doing errands alone such as visiting a doctor's office or shopping? Answer Date of Assessment Author Status No 10/02/2021 12:38 PM PARTICLE BOARD SUPERVISOR Annette Jorge, R N Active documented as of this encounter Mental Status * Because of a physical, mental, or emotional condition, do you have serious difficulty concentrating, remembering, or making decisions? Answer Entry Date Author Status No 10/02/2021 12:38 PM PARTICLE BOARD SUPERVISOR Annette Jorge, R N Active documented in this encounter Progress Notes * Lindsay Adair RN - 07/14/2022 5:01 PM CDT Spoke with patient and informed that he will need fasting labs done. Patient will have done at [facility]. Orders entered. * [...] HOME Medical Group Family & Internal Medicine [facility] [address] [place] [phone] [place] [address] [place] [address] 10/22/2025 9:15 AM PARTICLE BOARD SUPERVISOR Office Visit [facility] [address] Mily Gan MD [address] [address] documented as of this encounter [...] - 11.0 x10'3/uL 07/15/2022 7:47 AM CDT [facility] RBC 4.64 4.50 - 5.90 x10'6/uL 07/15/2022 7:47 AM CDT [facility] HGB 15.1 14.0 - 17.5 G/DL 07/15/2022 7:47 AM CDT [facility] HCT 45.1 41.5 - 50.4 % 07/15/2022 7:47 AM CDT [facility] MCV 97.2(H) 80.0 - 96.0 FL 07/15/2022 7:47 AM CDT [facility] MCH 32.5(H) 26.5 - 31.4 PG 07/15/2022 7:47 AM CDT [facility] MCHC 33.5 31.9 - 34.8 G/DL 07/15/2022 7:47 AM T [facility] RDW 12.7 12.3 - 14.3 % 07/15/2022 7:47 AM T [facility] PLT 232 151 - 353 x10'3/uL 07/15/2022 7:47 AM [facility] MPV 11.1 9.7 - 11.9 FL 07/15/2022 7:47 AM T [facility] RBC MORPHOLOGY NORMAL 07/15/2022 7:47 AM T [facility] PLT MORPH. NORMAL 07/15/2022 7:47 AM CDT [facility] WBC MORPHOLOGY NORMAL 07/15/2022 7:47 AM CDT [facility] LYMPHOCYTES % 33.8 15.8 - 45.0 % 07/15/2022 7:47 AM CDT [facility] NEUTROPHILS % 52.0 42.1 - 71.9 % 07/15/2022 7:47 AM CDT [facility] MONOCYTES % 11.4 5.7 - 12.5 % 07/15/2022 7:47 AM CDT [facility] EOSINOPHILS 1.5 0.0 - 5.6 % 07/15/2022 7:47 AM CDT [facility] BASOPHILS 1.1 0.0 - 1.3 % 07/15/2022 7:47 AM CDT [facility] ABS. NEUTROPHILS 2.78 1.40 - 6.00 x10'3/uL 07/15/2022 7:47 AM CDT [facility] IMMATURE GRANS % 0.2 0.0 - 0.5 % 07/15/2022 7:47 AM CDT [facility] ABS. LYMPHOCYTES 1.81 0.80 - 4.70 x10'3/uL 07/15/2022 7:47 AM CDT [facility] 07/15/2022 7:39 AM CDT Lorie Chan MD LABORATORY Final Result [facility] [address] [place] [id number], * COMPREHENSIVE METABOLIC PANEL (07/15/2022 7:39 AM CDT) [facility] GLUCOSE 98 70 - 99 MG/DL 07/15/2022 8:39 AM CDT [facility] BUN 18 7 - 18 MG/DL 07/15/2022 8:39 AM CDT [facility] CREATININE S/P/B 0.74 0.7 - 1.3 MG/DL 07/15/2022 8:39 AM CDT [facility] SODIUM S/P/B 143 136 - 145 MMOL/L 07/15/2022 8:39 AM CDT [facility] POTASSIUM S/P/B 4.4 3.5 - 5.1 MMOL/L 07/15/2022 8:39 AM [facility] CHLORIDE S/P/B 106 100 - 108 MMOL/L 07/15/2022 8:39 AM [facility] CO2 31.4 21 - 32 MMOL/L 07/15/2022 8:39 AM [facility] CALCIUM S/P/B 8.8 8.5 - 10.1 MG/DL 07/15/2022 8:39 AM [facility] BILIRUBIN TOTAL S/P/B 0.8 0.2 - 1.2 MG/DL 07/15/2022 8:39 AM [facility] TOTAL PROTEIN S/P/B 8.0 6.4 - 8.2 G/DL 07/15/2022 8:39 AM [facility] ALBUMIN S/P/B 4.0 3.4 - 5.0 G/DL 07/15/2022 8:39 AM [facility] AST 19 15 - 37 U/L 07/15/2022 8:39 AM [facility] ALT 32 16 - 60 U/L 07/15/2022 8:39 AM [facility] ALKALINE PHOSPHATASE S/P/B 55 50 - 136 U/L 07/15/2022 8:39 AM [facility] ANION GAP 5.6 5 - 15 MMOL/L 07/15/2022 8:39 AM [facility] BUN CREATININE RATIO 24.3 6 - 26 07/15/2022 8:39 AM [facility] A/G RATIO 1.0 1.0 - 2.0 RATIO 07/15/2022 8:39 AM [facility] GFR ESTIMATE >90 >90 ML/MIN/1.7 3 M2 07/15/2022 8:39 AM T [facility] Comment: NOTE: eGFR is not calculated for patients <18 years of age. This is an estimated GFR calculation using the new CKD EPI creatinine equation without race and so does not require a correction factor for race. This estimated GFR should not be used for calculating drug doses. 07/15/2022 7:39 AM CDT us Lorie Chan MD LABORATORY Final Result [facility] [address] [place] [address], * LIPID PANEL (07/15/2022 7:39 AM CDT) CHOLESTEROL 146 <200.0 MG/DL 07/15/2022 8:39 AM [facility] TRIGLYCERIDES 73 <150 MG/DL 07/15/2022 8:39 AM [facility] HDL 51 >40.0 MG/DL 07/15/2022 8:39 AM [facility] LDL (CALCULATED) 80 <100 MG/DL 07/15/20 8:39 AM [facility] NON HDL CHOLESTEROL 95 <130 MG/DL 07/15 8:39 AM [facility] CHOL/HDL RATIO 2.9 0.0 - 4.5 07/15/2022 8:39 AM [facility] VLDL CALCULATION 15 5 - 55 MG/DL 07/15/2022 8:39 AM [facility] LIPID INTERPRETATION 07/15/2022 8:39 AM [facility] Comment: NIH CONCENSUS REPORT [...] MD LABORATORY Final Result Performing Organization Address [facility]/State/ZIP Co de Phone Number [facility] () [facility] [address] [place] [address], * (ABNORMAL) VITAMIN B12 / FOLATE (07/15/2022 7:39 AM CDT) VITAMIN B12 S/P/B 1,289(H) 193 - 986 PG/ML 07/15/2022 8:39 AM CDT [facility] FOLATE 19.0 8.6 - 58.9 NG/ML 07/15/2022 8:39 AM CDT [facility] 07/15/2022 7:39 AM CDT us Lorie Chan MD LABORATORY Final Result Performing Organization Address City/[facility]/ZIP Co de Phone Number [facility] [address] [place] [address], [place] [phone] * TSH W/REFLEX (07/15/2022 7:39 AM CDT) Pathologist [facility] TSH 1.664 0.358 - 3.74 uIU/ML 07/15/2022 8:39 AM CDT [facility] Comment: HIGH DOSES OF BIOTIN MAY INTERFERE WITH THIS TEST RESULT. CORRELATION TO CLINICAL HISTORY AND PRESENTATION RECOMMENDED. FREE T4 NOT INDICATED 07/15/2022 7:39 AM CDT Lorie Chan MD LABORATORY Final Result Performing Organization Address City/[facility]/ZIP Co de Phone Number [facility] [address] [place] [address], [place] [phone] * PROSTATE SPECIFIC ANTIGEN,SCREENING (07/15/2022 7:39 AM CDT) PSA 0.89 <4.00 NG/ML 07/15/2022 8:12 AM CDT [facility] Comment: Test was performed using the Siemens method. ??Results obtained with other assay methods or kits cannot be used interchangeably with results obtained by the Siemens method. 07/15/2022 7:39 AM CDT Lorie Chan MD LABORATORY Final Result Performing Organization Address [facility] Co de Phone Number [facility] [address] [place] [address], [place] [phone] * VITAMIN D, 25 [place] (07/15/2022 7:39 AM CDT) Pathologist [facility] VITAMIN D 25 HYDROXY S/P/B 46 30 - 100 NG/ML 07/15/2022 8:44 AM CDT [facility] Comment: ? INTERPRETATION ? DEFICIENT ??<20 ? INSUFFICIENT 20-29 ?SUFFICIENT 30-100 07/15/2022 7:39 AM CDT Lorie Chan MD LABORATORY Final Result Performing Organization Address [facility] de Phone Number [facility] [address] [place] [address], [place] [phone] documented in this encounter Visit Diagnoses Diagnosis Mixed hyperlipidemia- Primary Prostate cancer screening Special screening for malignant neoplasm of prostate Vitamin D deficiency Unspecified vitamin D deficiency documented in this encounter Additional Health Concerns Assessment Noted Time PHQ-9 Depression Total Score: 1 01/12/20 22 8:53 AM PARTICLE BOARD SUPERVISOR documented as of this encounter Care Teams Senior Php Software Developer Relationship Specialty Start Date End Date Lorie Chan MD PCP - General INTERNAL MEDICINE 01/15/20 02/09/23 documented as of this encounter
--- OUTSIDE RECORDS SUMMARY | 2024-11-02 09:13 | XMS_ITS | Encounter Summary ---
Author Organization [facility] Address [address] [place] [address]. [place], [place] [address] [place] [address] Care Team Providers Care Steeplechase Jockey Name Role Phone Jeremy Castanno MD Primary Care Provider [phone] Reason for Visit * Reason Comments Follow Up 6 MONTH FOLLOW UP / MEDICATIONS / AND OTHER ISSUES Encounter Details Date Type Department Care Team (Late st Contact Info) Description 01/11/2022 8:40 AM CHEMICAL PATHOLOGIST Office Visit [facility] Family & Internal Medicine [facility] [phone] [place] [phone] Jeremy Castanon [place] [address] [place] [address] Follow Up (6 MONTH FOLLOW UP [...] on file Legal Sex Male 9:58 PM CHEMICAL PATHOLOGIST Gender Identity Not on file Sexual Orientation Not on file COVID-19 Exposure Response Date Recorded In the last 10 days, have yo u been in contact with someone who was confirmed or suspected to have Coronavirus/COVID-19? No / Unsure 01/11/2022 8:25 AM CHEMICAL PATHOLOGIST documented as of this encounter Last Filed Vital Signs Vital Sign Reading Time Taken Comments Blood Pressure 124/64 01/11/2022 8:50 AM CHEMICAL PATHOLOGIST Pulse 77 01/11/2022 8:50 AM CHEMICAL PATHOLOGIST Temperature 36.3 ??C (97.3 ??F) 01/11/2022 8:50 AM CS T Respiratory Rate 16 01/11/2022 8:50 AM CHEMICAL PATHOLOGIST Oxygen Saturation 98% 01/11/2022 8:50 AM CHEMICAL PATHOLOGIST Inhaled Oxygen Concentration - - Weight 76.6 kg (168 lb 12.8 oz) 01/11/2022 8:50 AM CHEMICAL PATHOLOGIST Height 170.2 cm (5' 7 ) 01/11/2022 8:50 AM CHEMICAL PATHOLOGIST Body Mass Index 26.44 01/11/2022 8:50 AM CHEMICAL PATHOLOGIST documented in this encounter Functional Status * RETIRED Are you deaf or do you have serious difficulty hearing Answer Date of Assessment Author Status No 10/02/2021 12:38 PM CHEMICAL PATHOLOGIST Acti ve * RETIRED Are you blind or do you have serious difficulty seeing, even when wearing glasses? Answer Date of Assessment Author Status No 10/02/2021 12:38 PM CHEMICAL PATHOLOGIST Acti ve * Do you have serious difficulty walking or climbing stairs? Answer Date of Assessment Author Status No 10/02/2021 12:38 PM CHEMICAL PATHOLOGIST Annette Jorge R N Active * Do you have difficulty dressing or bathing? Answer Date of Assessment Author Status No 10/02/2021 12:38 PM CHEMICAL PATHOLOGIST Annette Jorge R N Active * Because [...] biopsy performed by Federico Mayer MD at [facility] ??? COLOSTOMY reversable ??? HERNIA REPAIR Right [facility] ??? HERNIA REPAIR Left [facility] ??? NECK/CHEST PROCEDURE UNLISTED Right [facility], re-built right side of neck. ??? SMALL INTESTINE SURGERY bowel rupture ??? TOTAL KNEE ARTHROPLASTY Bilateral ZANA Partial KR, done @ [facility] Social History Socioeconomic History ??? [...] MONTHS JEREMY CASTANON MD 01/11/2022 7:06 PM ICAL PATHOLOGIST documented in this encounter Plan of Treatment Upcoming Encounters Date Type Department Care Team (Late st Contact Info) Description 01/27/2025 7:00 AM CDT Office Visit [facility] Group Family & Internal Medicine [facility] [address] [place] [phone] [place] [address] [place], [place] [phone] 10/22/2025 9:15 AM CHEMICAL PATHOLOGIST Office Visit [facility] [address] Mily Gan MD [address] [phone] documented as of this encounter Goals Goal [...] SHOULDER LT MIN 2V (01/11/2022 10:34 AM CHEMICAL PATHOLOGIST) Anatomical Region Laterality Modality Shoulder Radiographic Leola ging 01/11/2022 10:3 8 AM CHEMICAL PATHOLOGIST Impressions 01/11/2022 10:39 AM CHEMICAL PATHOLOGIST IMPRESSION: 1. No evidence of acute fracture, dislocation or osseus erosion. 2. Normal contour to the ??humeral head. Osteopenia limits exam. 3. Moderate degenerative change of the ??AC joint and greater tuberosity. Mild degenerative change of the glenohumeral articulation. Ordered By: JEREMY CASTANON Interpreted By: Víctor Jin, 01/11/2022 10:38 AM Narrative 01/11/2022 10:39 AM CHEMICAL PATHOLOGIST IMAGING STUDIES: ?XR SHOULDER LT MIN 2V [...] articulation. Ordered By: JEREMY CASTANON Interpreted By: Víctro Jin, 01/11/2022 10:38 AM Jeremy Castanon MD GENERAL IMAGING Final Result documented in this encounter Visit Diagnoses Diagnosis Primary hypertension- Primary Unspecified essential hypertension Left shoulder pain, unspecified chronicity Left shoulder pain, unspecified chronicity documented in this encounter Additional Health Concerns Assessment Noted Time PHQ-9 Depression Total Score: 1 01/12/20 22 8:53 AM CHEMICAL PATHOLOGIST documented as of this encounter Care Teams Steeplechase Jockey Relationship Specialty Start Date End Date Jeremy Castanon MD PCP - General INTERNAL MEDICINE 01/15/20 02/09/23 documented as of this encounter
--- OUTSIDE RECORDS SUMMARY | 2024-11-02 09:13 | XMS_ITS | Encounter Summary ---
Author Organization [facility] Address [address] [place] [address]. [place], [place] [address] [place] [address] Care Team Providers Care Building And Construction Manager Name Role Phone Lorie Castanon MD Primary Care Provider [phone] Reason for Referral * Consultation (Routine) - [...] Expiration Date V isits Requested Visits Authorized [id number] Closed Specialty Services 2022 2023 99 99 Scheduling Instructions Urinary frequency & nocturia, N PSA Reason for Visit * Reason Comments Medication QPA 6 MONTH FOLLOW U P MEDICATION REFILLS Encounter Details Date Type Department Care Team (Late st Contact Info) Description 2022 10:00 AM CDT Office Visit [facility] Family & Internal Medicine [facility] [address] [place] [address] [place] [address] [place] [address] Medication (QPA 6 MONTH FOLLOW [...] file Legal Sex Male 9:58 PM COMPUTER OPERATIONS TECHNICIAN Gender Identity Not on file Sexual [...] Author Status No 10/02/2021 12:38 PM COMPUTER OPERATIONS TECHNICIAN Acti ve * RETIRED Are you blind or do you have serious difficulty seeing, even when wearing glasses? Answer Date of Assessment Author Status No 10/02/2021 12:38 PM COMPUTER OPERATIONS TECHNICIAN Acti ve * Do you have serious difficulty walking or climbing stairs? Answer Date of Assessment Author Status No 10/02/2021 12:38 PM COMPUTER OPERATIONS TECHNICIAN Annette Jorge R N Active * Do you have difficulty dressing or bathing? Answer Date of Assessment Author Status No 10/02/2021 12:38 PM COMPUTER OPERATIONS TECHNICIAN Annette Jorge R N Active * Because of a physical, mental, or emotional condition, do you have difficulty doing errands alone such as visiting a doctor's office or shopping? Answer Date of Assessment Author Status No 10/02/2021 12:38 PM COMPUTER OPERATIONS TECHNICIAN Annette Jorge R N Active documented as of this encounter Mental Status * Because of a physical, mental, or emotional condition, do you have serious difficulty concentrating, remembering, or making decisions? Answer Entry Date Author Status No 10/02/2021 12:38 PM COMPUTER OPERATIONS TECHNICIAN Annette Jorge R N Active documented [...] biopsy performed by Federico Mayer MD at [facility] OR ??? COLOSTOMY reversable ??? HERNIA REPAIR Right [facility] ??? HERNIA REPAIR Left [facility] ??? NECK/CHEST PROCEDURE UNLISTED Right [facility], re-built right side of neck. ??? SMALL INTESTINE SURGERY bowel rupture ??? TOTAL KNEE ARTHROPLASTY Bilateral ZANA Partial KR, done @ [facility] Social History Socioeconomic History ??? [...] [facility] [address] [place] [address] [place] [address] [place], [place] [id number] 10/22/2025 9:15 AM COMPUTER OPERATIONS TECHNICIAN [facility] [address] [place] [address] Mily Gan MD [address] [address] Scheduled Referrals Name Type Priority [...] Total Score: 1 01/12/20 22 8:53 AM COMPUTER OPERATIONS TECHNICIAN documented as of this encounter Care Teams Building And Construction Manager Relationship Specialty Start Date End Date Lorie Castanon MD PCP - General INTERNAL MEDICINE 01/15/20 02/09/23 documented as of this encounter
--- OUTSIDE RECORDS SUMMARY | 2024-11-02 09:13 | XMS_ITS | Encounter Summary ---
Author Organization [facility] Address [address] [place] [address]. [place], [place] [address] [place] [address] Care Team Providers Care Tailer Out Name Role Phone Lorie Chan MD Primary Care Provider [phone] Encounter Details Date Type Department Care Team [...] on file Legal Sex Male 9:58 PM PATCH SANDER Gender Identity Not on file Sexual Orientation Not on file COVID-19 Exposure Response Date Recorded In the last 10 days, have yo u been in contact with someone who was confirmed or suspected to have Coronavirus/COVID-19? No / Unsure 01/06/2022 7:27 AM PATCH SANDER documented as of this encounter Functional Status * RETIRED Are you deaf or do you have serious difficulty hearing Answer Date of Assessment Author Status No 10/02/2021 12:38 PM PATCH SANDER Acti ve * RETIRED Are you blind or do you have serious difficulty seeing, even when wearing glasses? Answer Date of Assessment Author Status No 10/02/2021 12:38 PM PATCH SANDER Acti ve * Do you have serious difficulty walking or climbing stairs? Answer Date of Assessment Author Status No 10/02/2021 12:38 PM PATCH SANDER Annette Jorge, R N Active * Do you have difficulty dressing or bathing? Answer Date of Assessment Author Status No 10/02/2021 12:38 PM PATCH SANDER Annette Jorge, R N Active * Because of a physical, mental, or emotional condition, do you have difficulty doing errands alone such as visiting a doctor's office or shopping? Answer Date of Assessment Author Status No 10/02/2021 12:38 PM PATCH SANDER Annette Jorge, R N Active documented as of this encounter Mental Status * Because of a physical, mental, or emotional condition, do you have serious difficulty concentrating, remembering, or making decisions? Answer Entry Date Author Status No 10/02/2021 12:38 PM PATCH SANDER Annette Jorge, R N Active documented in this encounter Plan of Treatment Upcoming Encounters Date Type Department Care Team (Late st Contact Info) Description 01/27/2025 7:00 AM CDT Office Visit [facility] Family & Internal Medicine [address] [address] Ilir Nelson PA [address] [place] [address] 10/22/2025 9:15 AM PATCH SANDER Office Visit [facility] [address] Mily Gan MD [address] [address] documented as of this encounter Goals Goal [...] Total Score: 0 01/05/20 22 12:19 PM PATCH SANDER documented as of this encounter Care Teams Tailer Out Relationship Specialty Start Date End Date Lorie Chan MD PCP - General INTERNAL MEDICINE 01/15/20 02/09/23 documented as of this encounter
--- OUTSIDE RECORDS SUMMARY | 2024-11-02 09:13 | XMS_ITS | Encounter Summary ---
Author Organization [facility] Address [address] [place] [address]. [place], [place] [address] [place] [address] Care Team Providers Care Diversified Crops Farmworker Name Role Phone Lorie Chan MD Primary Care Provider [phone] Encounter Details Date Type Department Care Team [...] on file Legal Sex Male 9:58 PM UROLOGY TEACHER Gender Identity Not on file Sexual Orientation Not on file COVID-19 Exposure Response Date Recorded In the last 10 days, have yo u been in contact with someone who was confirmed or suspected to have Coronavirus/COVID-19? No / Unsure 12/24/2021 1:46 PM UROLOGY TEACHER documented as of this encounter Functional Status * RETIRED Are you deaf or do you have serious difficulty hearing Answer Date of Assessment Author Status No 10/02/2021 12:38 PM UROLOGY TEACHER Acti ve * RETIRED Are you blind or do you have serious difficulty seeing, even when wearing glasses? Answer Date of Assessment Author Status No 10/02/2021 12:38 PM UROLOGY TEACHER Acti ve * Do you have serious difficulty walking or climbing stairs? Answer Date of Assessment Author Status No 10/02/2021 12:38 PM UROLOGY TEACHER Annette Jorge, R N Active * Do you have difficulty dressing or bathing? Answer Date of Assessment Author Status No 10/02/2021 12:38 PM UROLOGY TEACHER Annette Jorge, R N Active * Because of a physical, mental, or emotional condition, do you have difficulty doing errands alone such as visiting a doctor's office or shopping? Answer Date of Assessment Author Status No 10/02/2021 12:38 PM UROLOGY TEACHER Annette Jorge, R N Active documented as of this encounter Mental Status * Because of a physical, mental, or emotional condition, do you have serious difficulty concentrating, remembering, or making decisions? Answer Entry Date Author Status No 10/02/2021 12:38 PM UROLOGY TEACHER Annette Jorge, R N Active documented in this encounter Plan of Treatment Upcoming Encounters Date Type Department Care Team (Late st Contact Info) Description 01/27/2025 7:00 AM CDT Office Visit [facility] Family & Internal Medicine [address] [address] Ilir Nelson PA [address] [place] [address] 10/22/2025 9:15 AM UROLOGY TEACHER Office Visit [facility] [address] Mily Gan MD [address] [address] documented as of this encounter Goals Goal [...] on filedocumented in this encounter Care Teams Diversified Crops Farmworker Relationship Specialty Start Date End Date Lorie Chan MD PCP - General INTERNAL MEDICINE 01/15/20 02/09/23 documented as of this encounter
--- OUTSIDE RECORDS SUMMARY | 2024-11-02 09:13 | XMS_ITS | Encounter Summary ---
Author Organization [facility] Address [address] [place] [address]. [place], [place] [address] [place] [address] Care Team Providers Care Film Mounter Name Role Phone Lorie Chan MD Primary Care Provider [phone] Encounter Details Date Type Department Care Team [...] on file Legal Sex Male 9:58 PM BRAKE MACHINE OPERATOR Gender Identity Not on file [...] Assessment Author Status No 10/02/2021 12:38 PM BRAKE MACHINE OPERATOR Acti ve * RETIRED Are you blind or do you have serious difficulty seeing, even when wearing glasses? Answer Date of Assessment Author Status No 10/02/2021 12:38 PM BRAKE MACHINE OPERATOR Acti ve * Do you have serious difficulty walking or climbing stairs? Answer Date of Assessment Author Status No 10/02/2021 12:38 PM BRAKE MACHINE OPERATOR Annette Jorge R N Active * Do you have difficulty dressing or bathing? Answer Date of Assessment Author Status No 10/02/2021 12:38 PM BRAKE MACHINE OPERATOR Annette Jorge, R N Active * Because of a physical, mental, or emotional condition, do you have difficulty doing errands alone such as visiting a doctor's office or shopping? Answer Date of Assessment Author Status No 10/02/2021 12:38 PM BRAKE MACHINE OPERATOR Annette Jorge R N Active documented as of this encounter Mental Status * Because of a physical, mental, or emotional condition, do you have serious difficulty concentrating, remembering, or making decisions? Answer Entry Date Author Status No 10/02/2021 12:38 PM BRAKE MACHINE OPERATOR Annette Jorge, R N Active documented in this encounter Plan of Treatment Upcoming Encounters Date Type Department Care Team (Late st Contact Info) Description 01/27/2025 7:00 AM CDT Office Visit [facility] Family & Internal Medicine [address] [address] Ilir Nelson PA [address] [place] [phone] 10/22/2025 9:15 AM BRAKE MACHINE OPERATOR Office Visit [facility] [address] Mily Gan MD [address] [address] documented as of this encounter Goals Goal [...] Total Score: 1 01/12/20 22 8:53 AM BRAKE MACHINE OPERATOR documented as of this encounter Care Teams Film Mounter Relationship Specialty Start Date End Date Lorie Chan MD PCP - General INTERNAL MEDICINE 01/15/20 02/09/23 documented as of this encounter
--- OUTSIDE RECORDS SUMMARY | 2024-11-02 09:13 | XMS_ITS | Encounter Summary ---
Author Organization [facility] Address [address] [place] [address]. [place], [place] [address] [place] [address] Care Team Providers Care Certified Flex Endoscope Reprocessor Name Role Phone Lorie Chan MD Primary Care Provider [phone] Encounter Details Date Type Department Care Team (Late st Contact Info) Description 01/05/2022 Orders Only [facility] Family & Internal Medicine - [address] [address] Lorie Chan MD [address] [place] [address] Social History Tobacco Use Types Packs/Day [...] on file Legal Sex Male 9:58 PM ATHLETIC SHOE DESIGNER Gender Identity Not on file Sexual Orientation Not on file COVID-19 Exposure Response Date Recorded In the last 10 days, have yo u been in contact with someone who was confirmed or suspected to have Coronavirus/COVID-19? No / Unsure 12/24/2021 1:46 PM ATHLETIC SHOE DESIGNER documented as of this encounter Functional Status * RETIRED Are you deaf or do you have serious difficulty hearing Answer Date of Assessment Author Status No 10/02/2021 12:38 PM ATHLETIC SHOE DESIGNER Acti ve * RETIRED Are you blind or do you have serious difficulty seeing, even when wearing glasses? Answer Date of Assessment Author Status No 10/02/2021 12:38 PM ATHLETIC SHOE DESIGNER Acti ve * Do you have serious difficulty walking or climbing stairs? Answer Date of Assessment Author Status No 10/02/2021 12:38 PM ATHLETIC SHOE DESIGNER Annette Jorge R N Active * Do you have difficulty dressing or bathing? Answer Date of Assessment Author Status No 10/02/2021 12:38 PM ATHLETIC SHOE DESIGNER Annette Jorge R N Active * Because of a physical, mental, or emotional condition, do you have difficulty doing errands alone such as visiting a doctor's office or shopping? Answer Date of Assessment Author Status No 10/02/2021 12:38 PM ATHLETIC SHOE DESIGNER Annette Jorge R N Active documented as of this encounter Mental Status * Because of a physical, mental, or emotional condition, do you have serious difficulty concentrating, remembering, or making decisions? Answer Entry Date Author Status No 10/02/2021 12:38 PM ATHLETIC SHOE DESIGNER Annette Jorge R N Active documented in this encounter Plan of Treatment Upcoming Encounters Date Type Department Care Team (Late st Contact Info) Description 01/27/2025 7:00 AM CDT Office Visit [facility] Family & Internal Medicine - [place] [address] [place] [address] Ilir Nelson PA [address] [place] [phone] 10/22/2025 9:15 AM ATHLETIC SHOE DESIGNER Office Visit [facility] [address] Mily Gan MD [address] [id number] [place] [address] documented as of this encounter [...] (ABNORMAL) COMPREHENSIVE METABOLIC PANEL (01/06/2022 7:50 AM ATHLETIC SHOE DESIGNER) [facility] GLUCOSE 102(H) 70 - 99 MG/DL 01/06/2022 8:49 AM [facility] BUN 14 7 - 18 MG/DL 01/06/2022 8:49 AM [facility] CREATININE S/P/B 0.76 0.7 - 1.3 MG/DL 01/06/2022 8:49 AM [facility] SODIUM S/P/B 143 136 - 145 MMOL/L 01/06/2022 8:49 AM [facility] POTASSIUM S/P/B 4.5 3.5 - 5.1 MMOL/L 01/06/2022 8:49 AM [facility] CHLORIDE S/P/B 108 100 - 108 MMOL/L 01/06/2022 8:49 AM [facility] CO2 29.3 21 - 32 MMOL/L 01/06/2022 8:49 AM [facility] CALCIUM S/P/B 8.5 8.5 - 10.1 MG/DL 01/06/2022 8:49 AM [facility] BILIRUBIN TOTAL S/P/B 0.7 0.2 - 1.2 MG/DL 01/06/2022 8:49 AM [facility] TOTAL PROTEIN S/P/B 7.2 6.4 - 8.2 G/DL 01/06/2022 8:49 AM [facility] ALBUMIN S/P/B 3.7 3.4 - 5.0 G/DL 01/06/2022 8:49 AM [facility] AST 28 15 - 37 U/L 01/06/2022 8:49 AM [facility] ALT 40 16 - 60 U/L 01/06/2022 8:49 AM [facility] ALKALINE PHOSPHATASE S/P/B 56 50 - 136 U/L 01/06/2022 8:49 AM [facility] ANION GAP 5.7 5 - 15 MMOL/L 01/06/2022 8:49 AM [facility] BUN CREATININE RATIO 18.4 6 - 26 01/06/2022 8:49 AM [facility] A/G RATIO 1.1 1.0 - 2.0 RATIO 01/06/2022 8:49 AM [facility] EGFR NON-AFR. AMER. >90 >90 ML/MIN/1.7 3 M2 01/06/2022 8:49 AM [facility] EGFR AFR. AMER. >90 >90 ML/MIN/1.7 3 M2 01/06/2022 8:49 AM [facility] Comment: NOTE: eGFR is not calculated for patients <18 years of age. This is an estimated GFR (CKD EPI) and should not be used for calculating drug doses. 01/06/2022 7:50 AM ATHLETIC SHOE DESIGNER us Lorie Chan MD LABORATORY Final Result [facility] [address] [place] [address], [place] [phone] * (ABNORMAL) CBC W/DIFF AUTOMATED (01/06/2022 7:50 AM ATHLETIC SHOE DESIGNER) [facility] Signature WBC 4.8 4.4 - 11.0 x10'3/uL 01/06/2022 8:33 AM [facility] RBC 4.39(L) 4.50 - 5.90 x10'6/uL 01/06/2022 8:33 AM [facility] HGB 14.2 14.0 - 17.5 G/DL 01/06/2022 8:33 AM [facility] HCT 42.2 41.5 - 50.4 % 01/06/2022 8:33 AM [facility] MCV 96.1(H) 80.0 - 96.0 FL 01/06/2022 8:33 AM [facility] MCH 32.3(H) 26.5 - 31.4 PG 01/06/2022 8:33 AM [facility] MCHC 33.6 31.9 - 34.8 G/DL 01/06/2022 8:33 AM [facility] RDW 13.2 12.3 - 14.3 % 01/06/2022 8:33 AM [facility] PLT 245 151 - 353 x10'3/uL 01/06/2022 8:33 AM [facility] MPV 10.7 9.7 - 11.9 FL 01/06/2022 8:33 AM [facility] RBC MORPHOLOGY NORMAL 01/06/2022 8:33 AM [facility] PLT MORPH. NORMAL 01/06/2022 8:33 AM [facility] WBC MORPHOLOGY NORMAL 01/06/2022 8:33 AM [facility] LYMPHOCYTES % 35.3 15.8 - 45.0 % 01/06/2022 8:33 AM [facility] NEUTROPHILS % 50.0 42.1 - 71.9 % 01/06/2022 8:33 AM [facility] MONOCYTES % 11.5 5.7 - 12.5 % 01/06/2022 8:33 AM [facility] EOSINOPHILS 1.7 0.0 - 5.6 % 01/06/2022 8:33 AM [facility] BASOPHILS 1.3 0.0 - 1.3 % 01/06/2022 8:33 AM [facility] ABS. NEUTROPHILS 2.40 1.40 - 6.00 x10'3/uL 01/06/2022 8:33 AM [facility] IMMATURE GRANS % 0.2 0.0 - 0.5 % 01/06/2022 8:33 AM [facility] ABS. LYMPHOCYTES 1.69 0.80 - 4.70 x10'3/uL 01/06/2022 8:33 AM [facility] 01/06/2022 7:50 AM ATHLETIC SHOE DESIGNER Lorie Chan MD LABORATORY Final Result [facility] [address] [place] [address], documented in this encounter Visit Diagnoses Diagnosis Primary hypertension- Primary Unspecified essential hypertension documented in this encounter Additional Health Concerns Assessment Noted Time PHQ-9 Depression Total Score: 0 01/05/20 22 12:19 PM ATHLETIC SHOE DESIGNER documented as of this encounter Care Teams Certified Flex Endoscope Reprocessor Relationship Specialty Start Date End Date Lorie Chan MD PCP - General INTERNAL MEDICINE 01/15/20 02/09/23 documented as of this encounter
--- OUTSIDE RECORDS SUMMARY | 2024-11-02 09:13 | XMS_ITS | Encounter Summary ---
Author Organization [facility] Address [address] [place] [address]. [place], [place] [address] [place] [address] Care Team Providers Care Bologna Lacer Name Role Phone Lorie Chan MD Primary Care Provider [phone] Reason for Visit * Reason Comments Shoulder Pain PT Evaluation * Physical Therapy (Routine) - Closed Specialty Diagnoses / Procedures Referred By Shelby jama Referred To Contact PHYSICAL THERAPY / [facility] Physical Therapy Diagnoses Pain in left shoulder Procedures Burak Garcia MD [address] [place] [address] Phone: tel: [place]: [place] [address] [place] [address] Phone: tel: fax: Referral ID Status Reason Start Date Expiration Date Visits Re quested Visits Authorized [id number] Closed 01/16/2023 01/17/2024 99 99 Encounter Details Date Type Department Care Team (Latest Contact Info) Description 01/16/2023 5:45 PM CDT - 01/16/2023 11:59 PM CDT Hospital Encounter [facility] Outpatient Rehab [address] [place], [place] [id number] [place] [address] [place] [address] Shoulder Pain (PT Evaluation ) [...] on file Legal Sex Male 9:58 PM FITTER PLACER Gender Identity Not on file Sexual Orientation [...] Assessment Author Status No 10/02/2021 12:38 PM FITTER PLACER Acti ve * RETIRED Are you blind or do you have serious difficulty seeing, even when wearing glasses? Answer Date of Assessment Author Status No 10/02/2021 12:38 PM FITTER PLACER Acti ve * Do you have serious difficulty walking or climbing stairs? Answer Date of Assessment Author Status No 10/02/2021 12:38 PM FITTER PLACER Annette Jorge R N Active * Do you have difficulty dressing or bathing? Answer Date of Assessment Author Status No 10/02/2021 12:38 PM FITTER PLACER Annette Jorge R N Active * Because of a physical, mental, or emotional condition, do you have difficulty doing errands alone such as visiting a doctor's office or shopping? Answer Date of Assessment Author Status No 10/02/2021 12:38 PM FITTER PLACER Annette Jorge R N Active documented as of this encounter Mental Status * Because of a physical, mental, or emotional condition, do you have serious difficulty concentrating, remembering, or making decisions? Answer Entry Date Author Status No 10/02/2021 12:38 PM Annette Mercer R N Active documented in this encounter Discharge Instructions * Patient Instructions* Sterilng Michael, PT - 01/16/2023 5:45 PM CDT Access Code: [email or web address] URL: [email or web address] Date: 01/17/2023 Prepared by: [place] Exercises Supine Shoulder Flexion Extension AAROM with [...] of this encounter Progress Notes * Sterling iMchael, PT - 01/16/2023 5:45 PM CDT Physical [...] biopsy performed by Federico Mayer MD at [facility] OR ??? COLOSTOMY reversable ??? HERNIA REPAIR Right [facility] ??? HERNIA REPAIR Left [facility] ??? NECK/CHEST PROCEDURE UNLISTED Right [facility], re-built right side of neck. ??? SMALL INTESTINE SURGERY bowel rupture ??? TOTAL KNEE ARTHROPLASTY Bilateral ZANA Partial KR, done @ [facility] Current Outpatient Medications Medication Sig ??? Ascorbic [...] Patel Patient : 1955 Date: 5:56 PM01/16/23 [facility] Department of Outpatient Physical Therapy [address] [place] [address] documented in this encounter Plan of Treatment Upcoming Encounters Date Type Department Care Team (Late st Contact Info) Description 01/27/2025 7:00 AM CDT Office Visit [facility] Family & Internal Medicine [facility] [address] [place] [address] [place] [address] [place] [phone] 10/22/2025 9:15 AM FITTER PLACER Office Visit [facility] [address] Mily Gan MD [address] [address] documented as of this encounter Goals Goal [...] Total Score: 1 01/12/20 22 8:53 AM FITTER PLACER documented as of this encounter Care Teams Bologna Lacer Relationship Specialty Start Date End Date Lorie Chan MD PCP - General INTERNAL MEDICINE 01/15/20 02/09/23 documented as of this encounter
--- OUTSIDE RECORDS SUMMARY | 2024-11-02 09:13 | XMS_ITS | Encounter Summary ---
Author Organization [facility] Address [address] [place] [address]. [place], [place] [address] [place] [address] Care Team Providers Care Curtain Mender Name Role Phone Lorie Chan MD Primary Care Provider [phone] Encounter Details Date Type Department Care Team [...] on file Legal Sex Male 9:58 PM ANODE BUILDER Gender Identity Not on file Sexual [...] Assessment Author Status No 10/02/2021 12:38 PM ANODE BUILDER Acti ve * RETIRED Are you blind or do you have serious difficulty seeing, even when wearing glasses? Answer Date of Assessment Author Status No 10/02/2021 12:38 PM ANODE BUILDER Acti ve * Do you have serious difficulty walking or climbing stairs? Answer Date of Assessment Author Status No 10/02/2021 12:38 PM ANODE BUILDER Annette Jorge R N Active * Do you have difficulty dressing or bathing? Answer Date of Assessment Author Status No 10/02/2021 12:38 PM ANODE BUILDER Annette Jorge, R N Active * Because of a physical, mental, or emotional condition, do you have difficulty doing errands alone such as visiting a doctor's office or shopping? Answer Date of Assessment Author Status No 10/02/2021 12:38 PM ANODE BUILDER Annette Jorge R N Active documented as of this encounter Mental Status * Because of a physical, mental, or emotional condition, do you have serious difficulty concentrating, remembering, or making decisions? Answer Entry Date Author Status No 10/02/2021 12:38 PM ANODE BUILDER Annette Jorge, R N Active documented in this encounter Plan of Treatment Upcoming Encounters Date Type Department Care Team (Late st Contact Info) Description 01/27/2025 7:00 AM CDT Office Visit [facility] Family & Internal Medicine [address] [address] Ilir Nelson PA [address] [place] [phone] 10/22/2025 9:15 AM ANODE BUILDER Office Visit [facility] [address] Mily Gan MD [address] [address] documented as of this encounter Goals Goal [...] Total Score: 1 01/12/20 22 8:53 AM ANODE BUILDER documented as of this encounter Care Teams Curtain Mender Relationship Specialty Start Date End Date Lorie Chan MD PCP - General INTERNAL MEDICINE 01/15/20 02/09/23 documented as of this encounter
--- OUTSIDE RECORDS SUMMARY | 2024-11-02 09:13 | XMS_ITS | Encounter Summary ---
Author Organization [facility] Address [address] [place] [address]. [place], [place] [address] [place] [address] Care Team Providers Care Telehealth Coordinator Name Role Phone Lorie Chan MD Primary Care Provider [phone] Encounter Details Date Type Department Care Team [...] on file Legal Sex Male 9:58 PM POULTRY FARMER MEAT Gender Identity Not on file Sexual Orientation [...] Assessment Author Status No 10/02/2021 12:38 PM POULTRY FARMER MEAT Acti ve * RETIRED Are you blind or do you have serious difficulty seeing, even when wearing glasses? Answer Date of Assessment Author Status No 10/02/2021 12:38 PM POULTRY FARMER MEAT Acti ve * Do you have serious difficulty walking or climbing stairs? Answer Date of Assessment Author Status No 10/02/2021 12:38 PM POULTRY FARMER MEAT Annette Jorge R N Active * Do you have difficulty dressing or bathing? Answer Date of Assessment Author Status No 10/02/2021 12:38 PM POULTRY FARMER MEAT Annette Jorge, R N Active * Because of a physical, mental, or emotional condition, do you have difficulty doing errands alone such as visiting a doctor's office or shopping? Answer Date of Assessment Author Status No 10/02/2021 12:38 PM POULTRY FARMER MEAT Annette Jorge R N Active documented as of this encounter Mental Status * Because of a physical, mental, or emotional condition, do you have serious difficulty concentrating, remembering, or making decisions? Answer Entry Date Author Status No 10/02/2021 12:38 PM POULTRY FARMER MEAT Annette Jorge, R N Active documented in this encounter Plan of Treatment Upcoming Encounters Date Type Department Care Team (Late st Contact Info) Description 01/27/2025 7:00 AM CDT Office Visit [facility] Medical [facility] Family & Internal Medicine [address] [address] Ilir Nelson PA [address] [place] [phone] 10/22/2025 9:15 AM POULTRY FARMER MEAT Office Visit [facility] [address] Mily Gan MD [address] [address] documented as of this encounter Goals Goal [...] Total Score: 1 01/12/20 22 8:53 AM POULTRY FARMER MEAT documented as of this encounter Care Teams Telehealth Coordinator Relationship Specialty Start Date End Date Lorie Chan MD PCP - General INTERNAL MEDICINE 01/15/20 02/09/23 documented as of this encounter
--- OUTSIDE RECORDS SUMMARY | 2024-11-02 09:13 | XMS_ITS | Encounter Summary ---
Author Organization [facility] Address [address] [place] [address]. [place], [place] [address] [place] [address] Care Team Providers Care Meter/Relay Technician Name Role Phone Lorie Castanon MD Primary Care Provider [phone] Reason for Visit * Reason Comments Hypertension QPA 6 MONTH FOLLOW U P HYPERTENSION / MEDICATIONS / AND OTHER ISSUES Encounter Details Date Type Department Care Team (Late st Contact Info) Description 01/23/2023 8:00 AM CDT Office Visit [facility] Medical Group Family & Internal Medicine [facility] [address] [place] [address] [place] Castanon [place] [id number] [place] [address] Hypertension (QPA 6 MONTH FOLLOW UP [...] file Legal Sex Male 9:58 PM AUTOMATIC PROFILE SHAPER OPERATOR Gender Identity Not on file Sexual [...] Author Status No 10/02/2021 12:38 PM AUTOMATIC PROFILE SHAPER OPERATOR Acti ve * RETIRED Are you blind or do you have serious difficulty seeing, even when wearing glasses? Answer Date of Assessment Author Status No 10/02/2021 12:38 PM AUTOMATIC PROFILE SHAPER OPERATOR Acti ve * Do you have serious difficulty walking or climbing stairs? Answer Date of Assessment Author Status No 10/02/2021 12:38 PM AUTOMATIC PROFILE SHAPER OPERATOR Annette Jorge R N Active * Do you have difficulty dressing or bathing? Answer Date of Assessment Author Status No 10/02/2021 12:38 PM AUTOMATIC PROFILE SHAPER OPERATOR Annette Jorge R N Active * [...] performed by Federico Mayer MD at [facility] OR ??? COLOSTOMY reversable ??? HERNIA REPAIR Right [facility] ??? HERNIA REPAIR Left [facility] ??? NECK/CHEST PROCEDURE UNLISTED Right [facility], re-built right side of neck. ??? SMALL INTESTINE SURGERY bowel rupture ??? TOTAL KNEE ARTHROPLASTY Bilateral ZANA Partial KR, done @ [facility] Social History Socioeconomic History ??? Marital [...] Medical Group Family & Internal Medicine - [place] [address] [place] [address] [place] [address] [place] [address] 10/22/2025 9:15 AM AUTOMATIC PROFILE SHAPER OPERATOR Office Visit [facility] [address] [place] [address] Mily Gan MD [facility] [address] [place] [address] Scheduled Orders Name Type Priority Associated Diagnoses [...] documented as of this encounter Care Teams Meter/Relay Technician Relationship Specialty Start Date End Date Lorie Castanon MD PCP - General INTERNAL MEDICINE 01/15/20 02/09/23 documented as of this encounter
--- OUTSIDE RECORDS SUMMARY | 2024-11-02 09:13 | XMS_ITS | Encounter Summary ---
Author Organization [facility] Address [address] [place] [address]. [place] [address] [place] [address] Care Team Providers Care Consulting Marine Engineer Name Role Phone Lorie Chan MD Primary Care Provider [phone] Reason for Visit * Reason Onset Date Comments Lab Order 01/13/2023 Encounter Details Date Type Department Care Team (Late st Contact Info) Description 01/13/2023 Telephone [facility] Medical [facility] Family & Internal Medicine [facility] [address] [place] [address] [place] Chan [place] [address] [place] [address] Lab Order Social History Tobacco Use [...] on file Legal Sex Male 9:58 PM SHARK BIOLOGIST Gender Identity Not on file Sexual Orientation Not on file documented as of this encounter Functional Status * RETIRED Are you deaf or do you have serious difficulty hearing Answer Date of Assessment Author Status No 10/02/2021 12:38 PM SHARK BIOLOGIST Acti ve * RETIRED Are you blind or do you have serious difficulty seeing, even when wearing glasses? Answer Date of Assessment Author Status No 10/02/2021 12:38 PM SHARK BIOLOGIST Acti ve * Do you have serious difficulty walking or climbing stairs? Answer Date of Assessment Author Status No 10/02/2021 12:38 PM SHARK BIOLOGIST Annette Jorge, R N Active * Do you have difficulty dressing or bathing? Answer Date of Assessment Author Status No 10/02/2021 12:38 PM SHARK BIOLOGIST Annette Jorge, R N Active * Because of a physical, mental, or emotional condition, do you have difficulty doing errands alone such as visiting a doctor's office or shopping? Answer Date of Assessment Author Status No 10/02/2021 12:38 PM SHARK BIOLOGIST Annette Jorge, R N Active documented as of this encounter Mental Status * Because of a physical, mental, or emotional condition, do you have serious difficulty concentrating, remembering, or making decisions? Answer Entry Date Author Status No 10/02/2021 12:38 PM SHARK BIOLOGIST Annette Jorge, R N Active documented in this encounter Progress Notes * Lindsay Adair RN - 01/13/2023 11:31 AM CST Spoke with patient and informed that per review of last office visit note, no labs needed until fall. Patient voiced understanding. K BIOLOGIST * Unique Crawford - 01/13/2023 7:16 AM CST Pt dropped by the office wanting to do routine labs prior to his appt w/DR no orders are in chart he would like a call if Dr is wanting them done prior to appt c/b # [phone] K BIOLOGIST documented in this encounter Plan of Treatment Upcoming Encounters Date Type Department Care Team (Late st Contact Info) Description 01/27/2025 7:00 AM CDT Office Visit [facility] Group Family & Internal Medicine [facility] [address] [place] [address] [place] [address] [place] [address] 10/22/2025 9:15 AM SHARK BIOLOGIST Office Visit [facility] [address] [place] [phone] Mily Gan MD [address] [place] [address] documented as of this encounter [...] Total Score: 1 01/12/20 22 8:53 AM SHARK BIOLOGIST documented as of this encounter Care Teams Consulting Marine Engineer Relationship Specialty Start Date End Date Lorie Chan MD PCP - General INTERNAL MEDICINE 01/15/20 02/09/23 documented as of this encounter
--- OUTSIDE RECORDS SUMMARY | 2024-11-02 09:13 | XMS_ITS | Encounter Summary ---
Author Organization [facility] Address [address] [place] [address]. [place] [address] [place] [address] Care Team Providers Care Systems Security Consultant Name Role Phone Lorie Chan MD Primary Care Provider [phone] Reason for Visit * Reason Onset Date Comments Pre-visit Gap Closure 01/04/2022 Encounter Details Date Type Department Care Team (Late st Contact Info) Description 01/04/2022 Telephone [facility] Family & Internal Medicine [facility] [address] [place] [address] Lorie Chan MD [address] [place] [address] Pre-visit Gap Closure Social History Tobacco [...] on file Legal Sex Male 9:58 PM SECOND HAND Gender Identity Not on file Sexual Orientation Not on file COVID-19 Exposure Response Date Recorded In the last 10 days, have yo u been in contact with someone who was confirmed or suspected to have Coronavirus/COVID-19? No / Unsure 12/24/2021 1:46 PM SECOND HAND documented as of this encounter Functional Status * RETIRED Are you deaf or do you have serious difficulty hearing Answer Date of Assessment Author Status No 10/02/2021 12:38 PM SECOND HAND Acti ve * RETIRED Are you blind or do you have serious difficulty seeing, even when wearing glasses? Answer Date of Assessment Author Status No 10/02/2021 12:38 PM SECOND HAND Acti ve * Do you have serious difficulty walking or climbing stairs? Answer Date of Assessment Author Status No 10/02/2021 12:38 PM SECOND HAND Annette Jorge, R N Active * Do you have difficulty dressing or bathing? Answer Date of Assessment Author Status No 10/02/2021 12:38 PM SECOND HAND Annette Jorge, R N Active * Because of a physical, mental, or emotional condition, do you have difficulty doing errands alone such as visiting a doctor's office or shopping? Answer Date of Assessment Author Status No 10/02/2021 12:38 PM SECOND HAND Annette Jorge, R N Active documented as of this encounter Mental Status * Because of a physical, mental, or emotional condition, do you have serious difficulty concentrating, remembering, or making decisions? Answer Entry Date Author Status No 10/02/2021 12:38 PM SECOND HAND Annette Jorge, R N Active documented in this encounter Progress Notes * Estela Paul CMA - 01/04/2022 12:14 PM CST Contacted patient for pre-visit gap closure. I have counseled the patient on tobacco use during this telephone encounter. I am calling this patient as a patient advocate for the [employer] Work [employer]. My direct extension is [phone]. You can also reach me at: [phone] ([facility]) OR [phone] ([place]) [place] HAND documented in this encounter Plan of Treatment Upcoming Encounters Date Type Department Care Team (Late st Contact Info) Description 01/27/2025 7:00 AM CDT Office Visit [facility] Family & Internal Medicine [facility] [address] [place] [address] [place] [address] [place] [address] 10/22/2025 9:15 AM SECOND HAND Office Visit [facility] [address] [place] [phone] Mily Gan MD [address] [place] [address] documented as of this encounter [...] Total Score: 0 01/05/20 22 12:19 PM SECOND HAND documented as of this encounter Care Teams Systems Security Consultant Relationship Specialty Start Date End Date Lorie Chan MD PCP - General INTERNAL MEDICINE 01/15/20 02/09/23 documented as of this encounter
--- OUTSIDE RECORDS SUMMARY | 2024-11-02 09:13 | XMS_ITS | Encounter Summary ---
Author Organization [facility] Address [address] [place] [address]. [place], [place] [address] [place] [address] Care Team Providers Care Frankfurter Inspector Name Role Phone Lorie Chan MD Primary Care Provider [phone] Encounter Details Date Type Department Care Team [...] on file Legal Sex Male 9:58 PM PHARMACOGNOSY TEACHER Gender Identity Not on file Sexual [...] Assessment Author Status No 10/02/2021 12:38 PM PHARMACOGNOSY TEACHER Acti ve * RETIRED Are you blind or do you have serious difficulty seeing, even when wearing glasses? Answer Date of Assessment Author Status No 10/02/2021 12:38 PM PHARMACOGNOSY TEACHER Acti ve * Do you have serious difficulty walking or climbing stairs? Answer Date of Assessment Author Status No 10/02/2021 12:38 PM PHARMACOGNOSY TEACHER Annette Jorge R Susan Active * Do you have difficulty dressing or bathing? Answer Date of Assessment Author Status No 10/02/2021 12:38 PM PHARMACOGNOSY TEACHER Annette Jorge R N Active * Because of a physical, mental, or emotional condition, do you have difficulty doing errands alone such as visiting a doctor's office or shopping? Answer Date of Assessment Author Status No 10/02/2021 12:38 PM PHARMACOGNOSY TEACHER Annette Jorge R N Active documented as of this encounter Mental Status * Because of a physical, mental, or emotional condition, do you have serious difficulty concentrating, remembering, or making decisions? Answer Entry Date Author Status No 10/02/2021 12:38 PM PHARMACOGNOSY TEACHER Annette Jorge, R N Active documented in this encounter Plan of Treatment Upcoming Encounters Date Type Department Care Team (Late st Contact Info) Description 01/27/2025 7:00 AM CDT Office Visit [facility] Group Family & Internal Medicine [facility] [address] [place] [address] Ilir Nelson PA [address] [place] [phone] 10/22/2025 9:15 AM PHARMACOGNOSY TEACHER Office Visit [facility] [address] Mily Gan MD [address] [phone] documented as of this encounter Goals Goal Patient Goal Type Associated Problems Recent Progress Patient-Stated? Author Establish Plan for Symptom Monitoring General No Jesi Cochran, RN Monitor - demonstrates appropriate technique of care of indwelling urinary catheter and new ostomy General No Jesi Cochran RN Patient will return to prior living situation and remain independent in ADLs upon discharge from hospital [facility] No Aliya Stokes RN documented as of this encounter Visit Diagnoses Not on filedocumented in this encounter Additional Health Concerns Assessment Noted Time PHQ-9 Depression Total Score: 0 01/24/20 8:04 AM CDT documented as of this encounter Care Teams Frankfurter Inspector Relationship Specialty Start Date End Date Lorie Chan MD PCP - General INTERNAL MEDICINE 01/15/20 02/09/23 documented as of this encounter
--- OUTSIDE RECORDS SUMMARY | 2024-11-02 09:13 | XMS_ITS | Encounter Summary ---
Author Organization [facility] Address [address] [place] [address]. [place] [address] [place] [address] Care Team Providers Care Rn Teacher Name Role Phone Lorie Castanon MD Primary Care Provider Encounter Details Date Type Department Care Team (Latest Contact Info) Description 01/11/2022 9:58 AM MACHINE SET UP OPERATOR PAPER GOODS - 01/11/2022 11:59 PM [facility] Hospital Encounter [facility] [address] [place] [address] [place] [address] [place] [address] Discharge Disposition: Home or Self [...] file Legal Sex Male 9:58 PM MACHINE SET UP OPERATOR PAPER GOODS Gender Identity Not on file Sexual Orientation Not on file COVID-19 Exposure Response Date Recorded In the last 10 days, have yo u been in contact with someone who was confirmed or suspected to have Coronavirus/COVID-19? No / Unsure 01/11/2022 8:25 AM MACHINE SET UP OPERATOR PAPER GOODS documented as of this encounter Functional Status * RETIRED Are you deaf or do you have serious difficulty hearing Answer Date of Assessment Author Status No 10/02/2021 12:38 PM MACHINE SET UP OPERATOR PAPER GOODS Acti ve * RETIRED Are you blind or do you have serious difficulty seeing, even when wearing glasses? Answer Date of Assessment Author Status No 10/02/2021 12:38 PM MACHINE SET UP OPERATOR PAPER GOODS Acti ve * Do you have serious difficulty walking or climbing stairs? Answer Date of Assessment Author Status No 10/02/2021 12:38 PM MACHINE SET UP OPERATOR PAPER GOODS Annette Jorge R N Active * Do you have difficulty dressing or bathing? Answer Date of Assessment Author Status No 10/02/2021 12:38 PM MACHINE SET UP OPERATOR PAPER GOODS Annette Jorge R N Active * Because of a physical, mental, or emotional condition, do you have difficulty doing errands alone such as visiting a doctor's office or shopping? Answer Date of Assessment Author Status No 10/02/2021 12:38 PM MACHINE SET UP OPERATOR PAPER GOODS Annette Jorge R N Active documented as of this encounter Mental Status * Because of a physical, mental, or emotional condition, do you have serious difficulty concentrating, remembering, or making decisions? Answer Entry Date Author Status No 10/02/2021 12:38 PM MACHINE SET UP OPERATOR PAPER GOODS Annette Jorge R N Active documented in [...] Group Family & Internal Medicine [facility] [address] [place] [address] [place] [address] [place], [place] [phone] 10/22/2025 9:15 AM MACHINE SET UP OPERATOR PAPER GOODS Office Visit [facility] [address] Mily Gan MD [address] [address] documented as of this encounter [...] LT MIN 2V Routine 01/11/2022 10:34 AM MACHINE SET UP OPERATOR PAPER GOODS Left shoulder pain, unspecified chronicity documented in this encounter Results * XR SHOULDER LT MIN 2V (01/11/2022 10:34 AM MACHINE SET UP OPERATOR PAPER GOODS) Anatomical Region Laterality Modality Shoulder Radiographic Leola ging 01/11/2022 10:3 8 AM MACHINE SET UP OPERATOR PAPER GOODS Impressions 01/11/2022 10:39 AM MACHINE SET UP OPERATOR PAPER GOODS IMPRESSION: 1. No evidence of acute fracture, dislocation or osseus erosion. 2. Normal contour to the ??humeral head. Osteopenia limits exam. 3. Moderate degenerative change of the ??AC joint and greater tuberosity. Mild degenerative change of the glenohumeral articulation. Ordered By: LORIE CASTANON Interpreted By: Víctor Jin, 01/11/2022 10:38 AM Narrative 01/11/2022 10:39 AM MACHINE SET UP OPERATOR PAPER GOODS IMAGING STUDIES: ?XR SHOULDER LT MIN 2V [...] Total Score: 1 01/12/20 22 8:53 AM MACHINE SET UP OPERATOR PAPER GOODS documented as of this encounter Care Teams Rn Teacher Relationship Specialty Start Date End Date Lorie Castanon MD PCP - General INTERNAL MEDICINE 01/15/20 02/09/23 documented as of this encounter
--- OUTSIDE RECORDS SUMMARY | 2024-11-02 09:13 | XMS_ITS | Encounter Summary ---
Author Organization [facility] Address [address] [place] [address]. [place] [place] [address] [place] [address] Care Team Providers Care Heating Element Builder Name Role Phone Lorie Chan MD Primary Care Provider [phone] Encounter Details Date Type Department Care Team [...] on file Legal Sex Male 9:58 PM ORIENTATION AND MOBILITY SPECIALIST Gender Identity Not on file Sexual [...] Assessment Author Status No 10/02/2021 12:38 PM ORIENTATION AND MOBILITY SPECIALIST Acti ve * RETIRED Are you blind or do you have serious difficulty seeing, even when wearing glasses? Answer Date of Assessment Author Status No 10/02/2021 12:38 PM ORIENTATION AND MOBILITY SPECIALIST Acti ve * Do you have serious difficulty walking or climbing stairs? Answer Date of Assessment Author Status No 10/02/2021 12:38 PM ORIENTATION AND MOBILITY SPECIALIST Annette Jorge R N Active * Do you have difficulty dressing or bathing? Answer Date of Assessment Author Status No 10/02/2021 12:38 PM ORIENTATION AND MOBILITY SPECIALIST Annette Jorge, R N Active * Because of a physical, mental, or emotional condition, do you have difficulty doing errands alone such as visiting a doctor's office or shopping? Answer Date of Assessment Author Status No 10/02/2021 12:38 PM ORIENTATION AND MOBILITY SPECIALIST Annette Jorge R N Active documented as of this encounter Mental Status * Because of a physical, mental, or emotional condition, do you have serious difficulty concentrating, remembering, or making decisions? Answer Entry Date Author Status No 10/02/2021 12:38 PM ORIENTATION AND MOBILITY SPECIALIST Annette Jorge, R N Active documented in this encounter Plan of Treatment Upcoming Encounters Date Type Department Care Team (Late st Contact Info) Description 01/27/2025 7:00 AM CDT Office Visit [facility] Medical Group Family & Internal Medicine [address] [address] Ilir Nelson PA [address] [place] [phone] 10/22/2025 9:15 AM ORIENTATION AND MOBILITY SPECIALIST Office Visit [facility] [address] Mily Gan MD [address] [address] documented as of this encounter Goals Goal [...] Total Score: 1 01/12/20 22 8:53 AM ORIENTATION AND MOBILITY SPECIALIST documented as of this encounter Care Teams Heating Element Builder Relationship Specialty Start Date End Date Lorie Chan MD PCP - General INTERNAL MEDICINE 01/15/20 02/09/23 documented as of this encounter
--- OUTSIDE RECORDS SUMMARY | 2024-11-02 09:13 | XMS_ITS | Encounter Summary ---
Author Organization [facility] Address [address] [place] [address]. [place] [address] [place] [address] Care Team Providers Care Marketing Writer Name Role Phone Lorie Chan MD Primary Care Provider Encounter Details Date Type Department Care Team (Latest Contact Info) Description 07/15/2022 7:00 AM T - 07/15/2022 11:59 PM [facility] Hospital Encounter [facility] [address] [place], [place] [id number] [place] [address] [place], [place] [phone] Discharge Disposition: Home or Self Care (Routine [...] on file Legal Sex Male 9:58 PM DOUBLE ENDING MACHINE OPERATOR Gender Identity Not on file [...] Assessment Author Status No 10/02/2021 12:38 PM DOUBLE ENDING MACHINE OPERATOR Acti ve * RETIRED Are you blind or do you have serious difficulty seeing, even when wearing glasses? Answer Date of Assessment Author Status No 10/02/2021 12:38 PM DOUBLE ENDING MACHINE OPERATOR Acti ve * Do you have serious difficulty walking or climbing stairs? Answer Date of Assessment Author Status No 10/02/2021 12:38 PM DOUBLE ENDING MACHINE OPERATOR Annette Jorge R N Active * Do you have difficulty dressing or bathing? Answer Date of Assessment Author Status No 10/02/2021 12:38 PM DOUBLE ENDING MACHINE OPERATOR Annette oJrge R N Active * Because of a physical, mental, or emotional condition, do you have difficulty doing errands alone such as visiting a doctor's office or shopping? Answer Date of Assessment Author Status No 10/02/2021 12:38 PM DOUBLE ENDING MACHINE OPERATOR Annette Jorge R N Active documented as of this encounter Mental Status * Because of a physical, mental, or emotional condition, do you have serious difficulty concentrating, remembering, or making decisions? Answer Entry Date Author Status No 10/02/2021 12:38 PM DOUBLE ENDING MACHINE OPERATOR Annette Jorge R N Active [...] [facility] [address] [place] [address] [place] [address] [place], [place] [phone] 10/22/2025 9:15 AM DOUBLE ENDING MACHINE OPERATOR Office Visit [facility] [address] Mily Gan MD [address] [address] documented as of this encounter [...] - 11.0 x10'3/uL 07/15/2022 7:47 AM CDT [facility] RBC 4.64 4.50 - 5.90 x10'6/uL 07/15/2022 7:47 AM CDT [facility] HGB 15.1 14.0 - 17.5 G/DL 07/15/2022 7:47 AM CDT [facility] HCT 45.1 41.5 - 50.4 % 07/15/2022 7:47 AM CDT [facility] MCV 97.2(H) 80.0 - 96.0 FL 07/15/2022 7:47 AM CDT [facility] MCH 32.5(H) 26.5 - 31.4 PG 07/15/2022 7:47 AM CDT [facility] MCHC 33.5 31.9 - 34.8 G/DL 07/15/2022 7:47 AM CDT [facility] RDW 12.7 12.3 - 14.3 % 07/15/2022 7:47 AM CDT [facility] PLT 232 151 - 353 x10'3/uL 07/15/2022 7:47 AM CDT [facility] MPV 11.1 9.7 - 11.9 FL 07/15/2022 7:47 AM T [facility] RBC MORPHOLOGY NORMAL 07/15/2022 7:47 AM T [facility] PLT MORPH. NORMAL 07/15/2022 7:47 AM T [facility] WBC MORPHOLOGY NORMAL 07/15/2022 7:47 AM CDT [facility] LYMPHOCYTES % 33.8 15.8 - 45.0 % 07/15/2022 7:47 AM T [facility] NEUTROPHILS % 52.0 42.1 - 71.9 % 07/15/2022 7:47 AM CDT [facility] MONOCYTES % 11.4 5.7 - 12.5 % 07/15/2022 7:47 AM CDT [facility] EOSINOPHILS 1.5 0.0 - 5.6 % 07/15/2022 7:47 AM CDT [facility] BASOPHILS 1.1 0.0 - 1.3 % 07/15/2022 7:47 AM CDT [facility] ABS. NEUTROPHILS 2.78 1.40 - 6.00 x10'3/uL 07/15/2022 7:47 AM CDT [facility] IMMATURE GRANS % 0.2 0.0 - 0.5 % 07/15/2022 7:47 AM CDT [facility] ABS. LYMPHOCYTES 1.81 0.80 - 4.70 x10'3/uL 07/15/2022 7:47 AM CDT [facility] 07/15/2022 7:39 AM CDT Lorie Chan MD LABORATORY Final Result [facility] [address] [place] [address], * COMPREHENSIVE METABOLIC PANEL (07/15/2022 7:39 AM CDT) GLUCOSE 98 70 - 99 MG/DL 07/15/2022 8:39 AM CDT [facility] BUN 18 7 - 18 MG/DL 07/15/2022 8:39 AM CDT [facility] CREATININE S/P/B 0.74 0.7 - 1.3 MG/DL 07/15/2022 8:39 AM CDT [facility] SODIUM S/P/B 143 136 - 145 MMOL/L 07/15/2022 8:39 AM T [facility] POTASSIUM S/P/B 4.4 3.5 - 5.1 MMOL/L 07/15/2022 8:39 AM CDT [facility] CHLORIDE S/P/B 106 100 - 108 MMOL/L 07/15/2022 8:39 AM CDT [facility] CO2 31.4 21 - 32 MMOL/L 07/15/2022 8:39 AM T [facility] CALCIUM S/P/B 8.8 8.5 - 10.1 MG/DL 07/15/2022 8:39 AM [facility] BILIRUBIN TOTAL S/P/B 0.8 0.2 - 1.2 MG/DL 07/15/2022 8:39 AM [facility] TOTAL PROTEIN S/P/B 8.0 6.4 - 8.2 G/DL 07/15/2022 8:39 AM [facility] ALBUMIN S/P/B 4.0 3.4 - 5.0 G/DL 07/15/2022 8:39 AM [facility] AST 19 15 - 37 U/L 07/15/2022 8:39 AM [facility] ALT 32 16 - 60 U/L 07/15/2022 8:39 AM [facility] ALKALINE PHOSPHATASE S/P/B 55 50 - 136 U/L 07/15/2022 8:39 AM [facility] ANION GAP 5.6 5 - 15 MMOL/L 07/15/2022 8:39 AM [facility] BUN CREATININE RATIO 24.3 6 - 26 07/15/2022 8:39 AM [facility] A/G RATIO 1.0 1.0 - 2.0 RATIO 07/15/2022 8:39 AM [facility] GFR ESTIMATE >90 >90 ML/MIN/1.7 3 M2 07/15/2022 8:39 AM [facility] Comment: NOTE: eGFR is not calculated for patients <18 years of age. This is an estimated GFR calculation using the new CKD EPI creatinine equation without race and so does not require a correction factor for race. This estimated GFR should not be used for calculating drug doses. 07/15/2022 7:39 AM CDT us Lorie Chan MD LABORATORY Final Result [facility] [address] [place] [address], * LIPID PANEL (07/15/2022 7:39 AM CDT) [facility] Signature CHOLESTEROL 146 <200.0 MG/DL 07/15/2022 8:39 AM CDT [facility] TRIGLYCERIDES 73 <150 MG/DL 07/15/2022 8:39 AM T [facility] HDL 51 >40.0 MG/DL 07/15/2022 8:39 AM T [facility] LDL (CALCULATED) 80 <100 MG/DL 07/15/20 8:39 AM T [facility] NON HDL CHOLESTEROL 95 <130 MG/DL 07/15 8:39 AM T [facility] CHOL/HDL RATIO 2.9 0.0 - 4.5 07/15/2022 8:39 AM [facility] VLDL CALCULATION 15 5 - 55 MG/DL 07/15/2022 8:39 AM T [facility] LIPID INTERPRETATION 07/15/2022 8:39 AM [facility] Comment: NIH CONCENSUS REPORT RECOMMENDATIONS: [...] MD LABORATORY Final Result Performing Organization Address [facility] Co de Phone Number [facility] [address] [place] [address], * (ABNORMAL) VITAMIN B12 / FOLATE (07/15/2022 7:39 AM CDT) Pathologist [facility] VITAMIN B12 S/P/B 1,289(H) 193 - 986 PG/ML 07/15/2022 8:39 AM CDT [facility] FOLATE 19.0 8.6 - 58.9 NG/ML 07/15/2022 8:39 AM CDT [facility] 07/15/2022 7:39 AM CDT us Lorie Chan MD LABORATORY Final Result Performing Organization Address City/[facility]/ZIP Co de Phone Number [facility] [address] [place] [address], [place] [phone] * TSH W/REFLEX (07/15/2022 7:39 AM CDT) TSH 1.664 0.358 - 3.74 uIU/ML 07/15/2022 8:39 AM CDT [facility] Comment: HIGH DOSES OF BIOTIN MAY INTERFERE WITH THIS TEST RESULT. CORRELATION TO CLINICAL HISTORY AND PRESENTATION RECOMMENDED. FREE T4 NOT INDICATED 07/15/2022 7:39 AM CDT Lorie Chan MD LABORATORY Final Result Performing Organization Address [facility] Co de Phone Number [facility] [address] [place] [address], [place] [phone] * PROSTATE SPECIFIC ANTIGEN,SCREENING (07/15/2022 7:39 AM CDT) PSA 0.89 <4.00 NG/ML 07/15/2022 8:12 AM CDT [facility] Comment: Test was performed using the Siemens method. ??Results obtained with other assay methods or kits cannot be used interchangeably with results obtained by the Siemens method. 07/15/2022 7:39 AM CDT Lorie Chan MD LABORATORY Final Result Performing Organization Address [facility] Co de Phone Number [facility] [address] [place] [address], [place] [phone] * VITAMIN D, 25 OH (07/15/2022 7:39 AM CDT) VITAMIN D 25 HYDROXY S/P/B 46 30 - 100 NG/ML 07/15/2022 8:44 AM CDT [facility] Comment: ? INTERPRETATION ? DEFICIENT ??<20 ? INSUFFICIENT 20-29 ?SUFFICIENT 30-100 07/15/2022 7:39 AM CDT Lorie Chan MD LABORATORY Final Result [facility] [address] [place] [address], documented in this encounter Visit Diagnoses Diagnosis Vitamin D deficiency Unspecified vitamin D deficiency Prostate cancer screening Special screening for malignant neoplasm of prostate Mixed hyperlipidemia documented in this encounter Additional Health Concerns Assessment Noted Time PHQ-9 Depression Total Score: 1 01/12/20 22 8:53 AM DOUBLE ENDING MACHINE OPERATOR documented as of this encounter Care Teams Marketing Writer Relationship Specialty Start Date End Date Lorie Chan MD PCP - General INTERNAL MEDICINE 01/15/20 02/09/23 documented as of this encounter
--- OUTSIDE RECORDS SUMMARY | 2024-11-02 09:13 | XMS_ITS | Encounter Summary ---
Author Organization [facility] Address [address] [place] [address]. [place] [address] [place] [address] Care Team Providers Care Senior Marketing Manager Name Role Phone Lorie Castanon MD Primary Care Provider [phone] Reason for Visit * Reason Onset Date Comments Medication Request 11/11/2022 Encounter Details Date Type Department Care Team (Late st Contact Info) Description 11/11/2022 Telephone [facility] Family & Internal Medicine [facility] [address] [place] [address] [place] [address] [place] [address] Medication Request Social History Tobacco Use [...] on file Legal Sex Male 9:58 PM TRAILER CHIEF Gender Identity Not on file Sexual Orientation Not on file documented as of this encounter Functional Status * RETIRED Are you deaf or do you have serious difficulty hearing Answer Date of Assessment Author Status No 10/02/2021 12:38 PM TRAILER CHIEF Acti ve * RETIRED Are you blind or do you have serious difficulty seeing, even when wearing glasses? Answer Date of Assessment Author Status No 10/02/2021 12:38 PM TRAILER CHIEF Acti ve * Do you have serious difficulty walking or climbing stairs? Answer Date of Assessment Author Status No 10/02/2021 12:38 PM TRAILER CHIEF Annette Jorge, R N Active * Do you have difficulty dressing or bathing? Answer Date of Assessment Author Status No 10/02/2021 12:38 PM TRAILER CHIEF Annette Jorge, R N Active * Because of a physical, mental, or emotional condition, do you have difficulty doing errands alone such as visiting a doctor's office or shopping? Answer Date of Assessment Author Status No 10/02/2021 12:38 PM TRAILER CHIEF Annette Jorge, R N Active documented as of this encounter Mental Status * Because of a physical, mental, or emotional condition, do you have serious difficulty concentrating, remembering, or making decisions? Answer Entry Date Author Status No 10/02/2021 12:38 PM TRAILER CHIEF Annette Jorge, R N Active documented in this encounter Progress Notes * Lindsay Adair RN - 12/08/2022 9:39 AM CST Resent script LER CHIEF * Marilu Epstein LPN - 12/08/2022 9:13 AM CST This script sent to wrong pharm please send to [facility] home delivery please changed in demo pharm preference LER CHIEF * Lindsay Adair RN - 11/11/2022 4:10 PM CST Script sent LER CHIEF * Marilu Epstein LPN - 11/11/2022 11:36 AM CST Medication and strength: atorvastatin 40 mg 07/18/22 Dr. Melo Pharmacy: [facility] 30 day supply Call back #: [phone] Last office visit at this office: Last visit with LORIE CASTANON in [facility] was on: 2022 in [facility] Future appointment scheduled: Future Appointments Date Time Provider Department Center 01/23/2023 8:00 AM Lorie Castanon MD [facility] LER CHIEF documented in this encounter Plan of Treatment Upcoming Encounters Date Type Department Care Team (Late st Contact Info) Description 01/27/2025 7:00 AM CDT Office Visit [facility] Group Family & Internal Medicine [facility] [address] [place] [address] Ilir Nelson PA [address] [place] [address] 10/22/2025 9:15 AM TRAILER CHIEF Office Visit [facility] [address] Mily Gan MD [address] [phone] documented as of this encounter Goals Goal [...] Total Score: 1 03/08/20 22 8:53 AM TRAILER CHIEF documented as of this encounter Care Teams Senior Marketing Manager Relationship Specialty Start Date End Date Lorie Castanon MD PCP - General INTERNAL MEDICINE 01/15/20 02/09/23 documented as of this encounter
--- OUTSIDE RECORDS SUMMARY | 2024-11-02 09:14 | XMS_ITS | Encounter Summary ---
Author Organization [facility] Address [address] [place] [address]. [place] [address] [place] [address] Care Team Providers Care Rubber Vulcanizing Machine Operator Name Role Phone Lorie Chan MD Primary Care Provider [phone] Moraima Toledo RN Unavailable [phone] Reason for Visit * Reason Onset Date Comments Orders 10/18/2021 Encounter Details Date Type Department Care Team (Late st Contact Info) Description 10/18/2021 Telephone [facility] General Surgery - [place] [address], [address] [place] [address] Federico Mayer MD [address] [facility] [address] [place] [address] Orders Social History Tobacco Use Types Packs/Day [...] on file Legal Sex Male 9:58 PM NOTEREADER Gender Identity Not on file Sexual Orientation Not on file COVID-19 Exposure Response Date Recorded In the last month, have you been in contact with someone who was confirmed or suspected to have Coronavirus / COVID-19? No / Unsure 10/15/2021 2:25 PM NOTEREADER documented as of this encounter Functional Status * RETIRED Are you deaf or do you have serious difficulty hearing Answer Date of Assessment Author Status No 10/02/2021 12:38 PM NOTEREADER Acti ve * RETIRED Are you blind or do you have serious difficulty seeing, even when wearing glasses? Answer Date of Assessment Author Status No 10/02/2021 12:38 PM NOTEREADER Acti ve * Do you have serious difficulty walking or climbing stairs? Answer Date of Assessment Author Status No 10/02/2021 12:38 PM NOTEREADER Annette Jorge, R N Active * Do you have difficulty dressing or bathing? Answer Date of Assessment Author Status No 10/02/2021 12:38 PM NOTEREADER Annette Jorge, R N Active * Because of a physical, mental, or emotional condition, do you have difficulty doing errands alone such as visiting a doctor's office or shopping? Answer Date of Assessment Author Status No 10/02/2021 12:38 PM NOTEREADER Annette Jorge, R N Active documented as of this encounter Mental Status * Because of a physical, mental, or emotional condition, do you have serious difficulty concentrating, remembering, or making decisions? Answer Entry Date Author Status No 10/02/2021 12:38 PM NOTEREADER Annette Jorge, R N Active documented in this encounter Progress Notes * Tyler Caballero MA - 10/18/2021 11:07 AM CST [facility] home health called and they are going out to look at the wound and bandage it. Patient is going to discharged from home health this weekend. READER documented in this encounter Plan of Treatment Upcoming Encounters Date Type Department Care Team (Late st Contact Info) Description 01/27/2025 7:00 AM CDT Office Visit [facility] Family & Internal Medicine - [place] [address] [place] [address] [place] [address] [place], [place] [phone] 10/22/2025 9:15 AM NOTEREADER [facility] [address] [place] [phone] Mily Gan MD [facility] [address] [place] [address] documented as of this encounter [...] on filedocumented in this encounter Care Teams Rubber Vulcanizing Machine Operator Relationship Specialty Start Date End Date Lorie Chan MD PCP - General INTERNAL MEDICINE 01/15/20 02/09/23 Moraima Toledo, RN [address] [place] [address] Social Work Supervisor (Ambulatory) REGISTERED NURSE 09/23/21 documented as of this encounter
--- OUTSIDE RECORDS SUMMARY | 2024-11-02 09:14 | XMS_ITS | Encounter Summary ---
Author Organization [facility] Address [address] [place] [address]. [place], [place] [address] [place] [address] Care Team Providers Care Marine Engineering Consultant Name Role Phone Lorie Chan MD Primary Care Provider [phone] Encounter Details Date Type Department Care Team [...] on file Legal Sex Male 9:58 PM PSYCHOLOGIST INDUSTRIAL ORGANIZATIONAL Gender Identity Not on file Sexual Orientation Not on file COVID-19 Exposure Response Date Recorded In the last month, have you been in contact with someone who was confirmed or suspected to have Coronavirus / COVID-19? No / Unsure 10/27/2021 1:03 PM PSYCHOLOGIST INDUSTRIAL ORGANIZATIONAL documented as of this encounter Functional Status * RETIRED Are you deaf or do you have serious difficulty hearing Answer Date of Assessment Author Status No 10/02/2021 12:38 PM PSYCHOLOGIST INDUSTRIAL ORGANIZATIONAL Acti ve * RETIRED Are you blind or do you have serious difficulty seeing, even when wearing glasses? Answer Date of Assessment Author Status No 10/02/2021 12:38 PM PSYCHOLOGIST INDUSTRIAL ORGANIZATIONAL Acti ve * Do you have serious difficulty walking or climbing stairs? Answer Date of Assessment Author Status No 10/02/2021 12:38 PM PSYCHOLOGIST INDUSTRIAL ORGANIZATIONAL Annette Jorge, R N Active * Do you have difficulty dressing or bathing? Answer Date of Assessment Author Status No 10/02/2021 12:38 PM PSYCHOLOGIST INDUSTRIAL ORGANIZATIONAL Annette Jorge, R N Active * Because of a physical, mental, or emotional condition, do you have difficulty doing errands alone such as visiting a doctor's office or shopping? Answer Date of Assessment Author Status No 10/02/2021 12:38 PM PSYCHOLOGIST INDUSTRIAL ORGANIZATIONAL Annette Jorge, R N Active documented as of this encounter Mental Status * Because of a physical, mental, or emotional condition, do you have serious difficulty concentrating, remembering, or making decisions? Answer Entry Date Author Status No 10/02/2021 12:38 PM PSYCHOLOGIST INDUSTRIAL ORGANIZATIONAL Annette Jorge, R N Active documented in this encounter Plan of Treatment Upcoming Encounters Date Type Department Care Team (Late st Contact Info) Description 01/27/2025 7:00 AM CDT Office Visit [facility] Medical Group Family & Internal Medicine [facility] [address] [place] [phone] Ilir Nelson PA [address] [place] [phone] 10/22/2025 9:15 AM PSYCHOLOGIST INDUSTRIAL ORGANIZATIONAL Office Visit [facility] [address] Mily Gan MD [address] [address] documented as of this encounter Goals Goal [...] on filedocumented in this encounter Care Teams Marine Engineering Consultant Relationship Specialty Start Date End Date Lorie Chan MD PCP - General INTERNAL MEDICINE 01/15/20 02/09/23 documented as of this encounter
--- OUTSIDE RECORDS SUMMARY | 2024-11-02 09:14 | XMS_ITS | Encounter Summary ---
Author Organization [facility] Address [address] [place] [address]. [place] [address] [place] [address] Care Team Providers Care Chief Transfer And Pumphouse Operator Name Role Phone Lorie Chan MD Primary Care Provider [phone] Reason for Visit * Reason Onset Date Comments Question 10/28/2021 Encounter Details Date Type Department Care Team (Late st Contact Info) Description 10/28/2021 Telephone [facility] Group Family & Internal Medicine [facility] [address] [place] [address] [place] Chan [place] [address] [place] [address] Question Social History Tobacco Use Types [...] file Legal Sex Male 9:58 PM SENIOR SALES EXECUTIVE Gender Identity Not on file Sexual Orientation Not on file COVID-19 Exposure Response Date Recorded In the last month, have you been in contact with someone who was confirmed or suspected to have Coronavirus / COVID-19? No / Unsure 10/27/2021 1:03 PM SENIOR SALES EXECUTIVE documented as of this encounter Functional Status * RETIRED Are you deaf or do you have serious difficulty hearing Answer Date of Assessment Author Status No 10/02/2021 12:38 PM SENIOR SALES EXECUTIVE Acti ve * RETIRED Are you blind or do you have serious difficulty seeing, even when wearing glasses? Answer Date of Assessment Author Status No 10/02/2021 12:38 PM SENIOR SALES EXECUTIVE Acti ve * Do you have serious difficulty walking or climbing stairs? Answer Date of Assessment Author Status No 10/02/2021 12:38 PM SENIOR SALES EXECUTIVE Annette Jorge, R N Active * Do you have difficulty dressing or bathing? Answer Date of Assessment Author Status No 10/02/2021 12:38 PM SENIOR SALES EXECUTIVE Annette Jorge R N Active * Because of a physical, mental, or emotional condition, do you have difficulty doing errands alone such as visiting a doctor's office or shopping? Answer Date of Assessment Author Status No 10/02/2021 12:38 PM SENIOR SALES EXECUTIVE Annette Jorge R N Active documented as of this encounter Mental Status * Because of a physical, mental, or emotional condition, do you have serious difficulty concentrating, remembering, or making decisions? Answer Entry Date Author Status No 10/02/2021 12:38 PM SENIOR SALES EXECUTIVE Annette Jorge R N Active documented in this encounter Progress Notes * Xi Page RN - 11/01/2021 9:39 AM CST Script sent as requested OR SALES EXECUTIVE * Lorie Chan MD - 10/29/2021 1:00 PM CST Ok to fill OR SALES EXECUTIVE * Xi Page RN - 10/28/2021 3:24 PM CST Needs sent [facility] OR SALES EXECUTIVE * Xi Page RN - 10/28/2021 3:23 PM CST Ok to refill? Amlodipine and Metoprolol. OR SALES EXECUTIVE * Niya Mckinley - 10/28/2021 1:11 PM CST Pt CB# [phone] Pt called wanting to know if he has to still beon blood pressure med that put him on when he ws a pt in hosptial OR SALES EXECUTIVE documented in this encounter Plan of Treatment Upcoming Encounters Date Type Department Care Team (Late st Contact Info) Description 01/27/2025 7:00 AM CDT Office Visit [facility] Medical Group Family & Internal Medicine [facility] [address] [place] [phone] [place] [address] [place], [place] [phone] 10/22/2025 9:15 AM SENIOR SALES EXECUTIVE Office Visit [facility] [phone] Mily Gan MD [facility]. [address] [address] documented as of this encounter [...] hypertension documented in this encounter Care Teams Chief Transfer And Pumphouse Operator Relationship Specialty Start Date End Date Lorie Chan MD PCP - General INTERNAL MEDICINE 01/15/20 02/09/23 documented as of this encounter
--- OUTSIDE RECORDS SUMMARY | 2024-11-02 09:14 | XMS_ITS | Encounter Summary ---
Author Organization [facility] Address [address] [place] [address]. 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(09/22/2021) Encounter Details Date Type Department Care Team (Late st Contact Info) Description 10/27/2021 1:20 PM SALES SUPPORT CONSULTANT Office Visit [facility] General Surgery [address], [address] [place] [address] Federico Amador MD [address] [facility] [address] [place] [address] Postop Followup (lap reversal of [...] on file Legal Sex Male 9:58 PM SALES SUPPORT CONSULTANT Gender Identity Not on file Sexual Orientation Not on file COVID-19 Exposure Response Date Recorded In the last month, have you been in contact with someone who was confirmed or suspected to have Coronavirus / COVID-19? No / Unsure 10/27/2021 1:03 PM SALES SUPPORT CONSULTANT documented as of this encounter Last Filed Vital Signs Vital Sign Reading Time Taken Comments Blood Pressure 140/70 10/27/2021 1:21 PM SALES SUPPORT CONSULTANT Pulse 83 10/27/2021 1:21 PM SALES SUPPORT CONSULTANT Temperature 36.1 ??C (96.9 ??F) 10/27/2021 1:21 PM CS T Respiratory Rate 16 10/27/2021 1:21 PM SALES SUPPORT CONSULTANT Oxygen Saturation 98% 10/27/2021 1:21 PM SALES SUPPORT CONSULTANT Inhaled Oxygen Concentration - - Weight 73.5 kg (162 lb) 10/27/2021 1:21 PM SALES SUPPORT CONSULTANT Height 170.2 cm (5' 7 ) 10/27/2021 1:21 PM SALES SUPPORT CONSULTANT Body Mass Index 25.37 10/27/2021 1:21 PM SALES SUPPORT CONSULTANT documented in this encounter Functional Status * RETIRED Are you deaf or do you have serious difficulty hearing Answer Date of Assessment Author Status No 10/02/2021 12:38 PM SALES SUPPORT CONSULTANT Acti ve * RETIRED Are you blind or do you have serious difficulty seeing, even when wearing glasses? Answer Date of Assessment Author Status No 10/02/2021 12:38 PM SALES SUPPORT CONSULTANT Acti ve * Do you have serious difficulty walking or climbing stairs? Answer Date of Assessment Author Status No 10/02/2021 12:38 PM SALES SUPPORT CONSULTANT Annette Jorge R N Active * Do you have difficulty dressing or bathing? Answer Date of Assessment Author Status No 10/02/2021 12:38 PM SALES SUPPORT CONSULTANT Annette Jorge R N Active * Because of a physical, mental, or emotional condition, do you have difficulty doing errands alone such as visiting a doctor's office or shopping? Answer Date of Assessment Author Status No 10/02/2021 12:38 PM SALES SUPPORT CONSULTANT Annette Jorge R N Active documented as of this encounter Mental Status * Because of a physical, mental, or emotional condition, do you have serious difficulty concentrating, remembering, or making decisions? Answer Entry Date Author Status No 10/02/2021 12:38 PM SALES SUPPORT CONSULTANT Annette Jorge R N Active documented [...] biopsy performed by Federico Amador MD at [facility] OR ??? COLOSTOMY reversable ??? HERNIA REPAIR Right [facility] ??? HERNIA REPAIR Left [facility] ??? NECK/CHEST PROCEDURE UNLISTED Right [facility], re-built right side of neck. ??? SMALL INTESTINE SURGERY bowel rupture ??? TOTAL KNEE ARTHROPLASTY Bilateral ZANA Partial KR, done @ [facility] Social History Tobacco Use ??? Smoking status: [...] kg/m??. Diagnoses/Impression: 1. Status post Neel procedure ([facility]) sulfamethoxazole-trimethoprim (BACTRIM DS) 800-160 [...] Referring Provider: Dustin PCP: LORIE CASTANON MD S SUPPORT CONSULTANT documented in this encounter Plan of Treatment Upcoming Encounters Date Type Department Care Team (Late st Contact Info) Description 01/27/2025 7:00 AM CDT Office Visit [facility] Family & Internal Medicine - [place] [address] [place] [address] [place] [address] [place], [place] [phone] 10/22/2025 9:15 AM SALES SUPPORT CONSULTANT Office Visit [facility] [address] Mily Gan MD [address] [id number] documented as of this encounter Goals Goal [...] Primary documented in this encounter Care Teams Auto Tech Relationship Specialty Start Date End Date Lorie Castanon MD PCP - General INTERNAL MEDICINE 01/15/20 02/09/23 documented as of this encounter
--- OUTSIDE RECORDS SUMMARY | 2024-11-02 09:14 | XMS_ITS | Encounter Summary ---
Author Organization [facility] Address [address] [place] [address]. [place] [address] [place] [address] Care Team Providers Care Laster Hand Name Role Phone Lorie Chan MD Primary Care Provider Reason for Visit * Reason Onset Date Comments Medication 10/27/2021 Encounter Details Date Type Department Care Team (Late st Contact Info) Description 10/27/2021 Telephone [facility] Family & Internal Medicine [facility] [address] [place] [address] [place] [id number] [place] [address] Medication Social History Tobacco Use Types [...] on file Legal Sex Male 9:58 PM HUMIDIFIER ATTENDANT Gender Identity Not on file Sexual Orientation Not on file COVID-19 Exposure Response Date Recorded In the last month, have you been in contact with someone who was confirmed or suspected to have Coronavirus / COVID-19? No / Unsure 10/27/2021 1:03 PM HUMIDIFIER ATTENDANT documented as of this encounter Functional Status * RETIRED Are you deaf or do you have serious difficulty hearing Answer Date of Assessment Author Status No 10/02/2021 12:38 PM HUMIDIFIER ATTENDANT Acti ve * RETIRED Are you blind or do you have serious difficulty seeing, even when wearing glasses? Answer Date of Assessment Author Status No 10/02/2021 12:38 PM HUMIDIFIER ATTENDANT Acti ve * Do you have serious difficulty walking or climbing stairs? Answer Date of Assessment Author Status No 10/02/2021 12:38 PM HUMIDIFIER ATTENDANT Annette Jorge R N Active * Do you have difficulty dressing or bathing? Answer Date of Assessment Author Status No 10/02/2021 12:38 PM HUMIDIFIER ATTENDANT Annette Jorge R N Active * Because of a physical, mental, or emotional condition, do you have difficulty doing errands alone such as visiting a doctor's office or shopping? Answer Date of Assessment Author Status No 10/02/2021 12:38 PM HUMIDIFIER ATTENDANT Annette Jorge R N Active documented as of this encounter Mental Status * Because of a physical, mental, or emotional condition, do you have serious difficulty concentrating, remembering, or making decisions? Answer Entry Date Author Status No 10/02/2021 12:38 PM HUMIDIFIER ATTENDANT Annette Jorge R N Active documented in this encounter Progress Notes * Xi Page RN - 11/02/2021 8:46 AM CST Pt made aware and v/u. DIFIER ATTENDANT * Xi Page RN - 10/28/2021 8:43 AM CST Nurse attempted to contact pt to make him aware- pt answered and then hung up DIFIER ATTENDANT * Lorie Chan MD - 10/27/2021 5:56 PM CST We can stop the Amlodipine & refill the Metoprolol 3 months & re-evaluate in January when he is in DIFIER ATTENDANT * Summer Verma RN - 10/27/2021 3:05 PM CST Please advise. DIFIER ATTENDANT * Lizet Mejias - 10/27/2021 1:35 PM CST Pt stopped by the office to see when he is to stop blood pressure meds and if he is to continue taking he needs a refill of Amlodipine 5 mg and Metoprolol 50 mg DIFIER ATTENDANT documented in this encounter Plan of Treatment Upcoming Encounters Date Type Department Care Team (Late st Contact Info) Description 01/27/2025 7:00 AM CDT Office Visit [facility] Family & Internal Medicine [facility] [address] [place] [address] [place] [address] [place] [address] 10/22/2025 9:15 AM HUMIDIFIER ATTENDANT Office Visit [facility] [address] Mily Gan MD [address] [address] documented as of this encounter [...] on filedocumented in this encounter Care Teams Laster Hand Relationship Specialty Start Date End Date Lorie Chan MD PCP - General INTERNAL MEDICINE 01/15/20 02/09/23 documented as of this encounter
--- OUTSIDE RECORDS SUMMARY | 2024-11-02 09:14 | XMS_ITS | Encounter Summary ---
Author Organization [facility] Address [address] [place] [address]. [place], [place] [address] [place] [address] Care Team Providers Care Pipe Coverer Helper Name Role Phone Lorie Chan MD Primary Care Provider [phone] Reason for Visit * Auth/Cert Specialty Diagnoses / Procedures Referred By Shelby jama Referred To Contact Home Health Services / [facility] HOME HEALTH [facility] Home Care [facility] [address] [facility] [address] [place] [address] Phone: tel: fax: Referral ID Status Reason Start Date Expiration Date Visits Re quested Visits Authorized [id number] 1 1 Encounter Details Date Type Department Care Team (Late st Contact Info) Description 10/22/2021 10:30 AM STAMPS OR COINS SALESPERSON Home Care Visit [facility] Home Care [facility] [address] [facility] [address] [place] [phone] Libby Syed, GINA [phone] (Work) SN OASIS DISCHARGE/ASSESSMENT Social History [...] on file Legal Sex Male 9:58 PM STAMPS OR COINS SALESPERSON Gender Identity Not on file Sexual Orientation Not on file COVID-19 Exposure Response Date Recorded In the last month, have you been in contact with someone who was confirmed or suspected to have Coronavirus / COVID-19? No / Unsure 10/15/2021 2:25 PM STAMPS OR COINS SALESPERSON documented as of this encounter Last Filed Vital Signs Vital Sign Reading Time Taken Comments Blood Pressure 120/66 10/22/2021 10:34 AM STAMPS OR COINS SALESPERSON Pulse 68 10/22/2021 10:34 AM STAMPS OR COINS SALESPERSON Temperature 36.2 ??C (97.2 ??F) 10/22/2021 10:[address] Respiratory Rate 18 10/22/2021 10:34 AM STAMPS OR COINS SALESPERSON Oxygen Saturation 98% 10/22/2021 10:34 AM STAMPS OR COINS SALESPERSON room air Inhaled Oxygen Concentration - - Weight - - Height - - Body Mass Index - - documented in this encounter Functional Status * RETIRED Are you deaf or do you have serious difficulty hearing Answer Date of Assessment Author Status No 10/02/2021 12:38 PM STAMPS OR COINS SALESPERSON Acti ve * RETIRED Are you blind or do you have serious difficulty seeing, even when wearing glasses? Answer Date of Assessment Author Status No 10/02/2021 12:38 PM STAMPS OR COINS SALESPERSON Acti ve * Do you have serious difficulty walking or climbing stairs? Answer Date of Assessment Author Status No 10/02/2021 12:38 PM STAMPS OR COINS SALESPERSON Annette Jorge R N Active * Do you have difficulty dressing or bathing? Answer Date of Assessment Author Status No 10/02/2021 12:38 PM STAMPS OR COINS SALESPERSON Annette Jorge R N Active * Because of a physical, mental, or emotional condition, do you have difficulty doing errands alone such as visiting a doctor's office or shopping? Answer Date of Assessment Author Status No 10/02/2021 12:38 PM STAMPS OR COINS SALESPERSON Annette Jorge R N Active documented as of this encounter Mental Status * Because of a physical, mental, or emotional condition, do you have serious difficulty concentrating, remembering, or making decisions? Answer Entry Date Author Status No 10/02/2021 12:38 PM STAMPS OR COINS SALESPERSON Annette Jorge R N Active documented [...] Pt received the following services Home Health Care Home. Pt Agency discharged on October 22, 2021 Pt Condition/Status at Discharge: to self-care with outcomes met Recommendations for follow-up care/post-acute care: Follow up with MD as scheduled for [facility]. PS OR COINS SALESPERSON documented in this encounter Plan of Treatment Upcoming Encounters Date Type Department Care Team (Late st Contact Info) Description 01/27/2025 7:00 AM CDT Office Visit [facility] Family & Internal Medicine - [place] [address] [place] [address] [place] [phone] [place] [phone] 10/22/2025 9:15 AM STAMPS OR COINS SALESPERSON Office Visit [facility] [address] [place] [address] Mily Gan MD [facility]. [facility] [address] [place], [place] [id number] documented as of this encounter Goals Goal [...] Type -SN - OASIS Disch arge Discipline -Care Home Problems Problem Description Start Date Status Goals Interve ntions Wound Management Disciplines: Care Home Skin integrity deficit related to: surgical wound wound. Location/site: abdomen 10/06/2021 Resolved on 10/22/2021 1 goal linked to scheduled/document ed intervention 1 problem intervention scheduled/document ed in this visit 5 goal interventions scheduled/document ed in this visit Collaboratio n of Care Disciplines: Care Home Collaboration for safe care. 10/06/2021 Resolved on 10/22/2021 2 goals linked to scheduled/document ed interventions 4 goal interventions scheduled/document ed in this visit Nutritional concerns Disciplines: Care Home Inadequate/imbal anced nutritional concerns 10/06/2021 Resolved on 10/22/2021 1 goal linked to scheduled/document ed intervention 1 goal intervention scheduled/document ed in this visit Pulse Oximetry Disciplines: Care Home Skilled assessment and monitoring of O2 saturations. 10/06/2021 Resolved on 10/22/2021 1 goal linked to scheduled/document ed intervention 1 goal intervention scheduled/document ed in this visit Fall Precautions Disciplines: Care Home Patient at risk for falls or has [...] Completed documented in this encounter Care Teams Pipe Coverer Helper Relationship Specialty Start Date End Date Lorie Chan MD PCP - General INTERNAL MEDICINE 01/15/20 02/09/23 documented as of this encounter
--- OUTSIDE RECORDS SUMMARY | 2024-11-02 09:14 | XMS_ITS | Encounter Summary ---
Author Organization [facility] Address [address] [place] [address]. [place], [place] [address] [place] [address] Care Team Providers Care Evp Sales Name Role Phone Lorie Chan MD Primary Care Provider [phone] Encounter Details Date Type Department Care Team (Late st Contact Info) Description 11/02/2021 Orders Only [facility] Family & Internal Medicine [address] [address] Xi Page RN Social History [...] on file Legal Sex Male 9:58 PM SCARFING MACHINE OPERATOR Gender Identity Not on file Sexual Orientation Not on file COVID-19 Exposure Response Date Recorded In the last month, have you been in contact with someone who was confirmed or suspected to have Coronavirus / COVID-19? No / Unsure 10/27/2021 1:03 PM SCARFING MACHINE OPERATOR documented as of this encounter Functional Status * RETIRED Are you deaf or do you have serious difficulty hearing Answer Date of Assessment Author Status No 10/02/2021 12:38 PM SCARFING MACHINE OPERATOR Acti ve * RETIRED Are you blind or do you have serious difficulty seeing, even when wearing glasses? Answer Date of Assessment Author Status No 10/02/2021 12:38 PM SCARFING MACHINE OPERATOR Acti ve * Do you have serious difficulty walking or climbing stairs? Answer Date of Assessment Author Status No 10/02/2021 12:38 PM SCARFING MACHINE OPERATOR Annette Jorge, R N Active * Do you have difficulty dressing or bathing? Answer Date of Assessment Author Status No 10/02/2021 12:38 PM SCARFING MACHINE OPERATOR Annette Jorge, R N Active * Because of a physical, mental, or emotional condition, do you have difficulty doing errands alone such as visiting a doctor's office or shopping? Answer Date of Assessment Author Status No 10/02/2021 12:38 PM SCARFING MACHINE OPERATOR Annette Jorge R N Active documented as of this encounter Mental Status * Because of a physical, mental, or emotional condition, do you have serious difficulty concentrating, remembering, or making decisions? Answer Entry Date Author Status No 10/02/2021 12:38 PM SCARFING MACHINE OPERATOR Annette Jorge, R N Active documented in this encounter Plan of Treatment Upcoming Encounters Date Type Department Care Team (Late st Contact Info) Description 01/27/2025 7:00 AM CDT Office Visit [facility] Family & Internal Medicine [facility] [address] [place] [address] [place] [address] [place] [address] 10/22/2025 9:15 AM SCARFING MACHINE OPERATOR Office Visit [facility] [address] [place] [address] Mily Gan MD [id number] [place] [address] documented as of this encounter Goals Goal Patient Goal Type Associated Problems Recent Progress Patient-Stated? Author Establish Plan for Symptom Monitoring Jesi Warner RN Monitor - demonstrates appropriate technique of care of indwelling urinary catheter and new ostomy Jesi Warner RN Patient will return to prior living situation and remain independent in ADLs upon discharge from hospital [facility] Aliya Sotelo RN documented as of this encounter Visit Diagnoses Not on filedocumented in this encounter Care Teams Evp Sales Relationship Specialty Start Date End Date Lorie Chan MD PCP - General INTERNAL MEDICINE 01/15/20 02/09/23 documented as of this encounter
--- OUTSIDE RECORDS SUMMARY | 2024-11-02 09:14 | XMS_ITS | Encounter Summary ---
Author Organization [facility] Address [address] [place] [address]. [place] [address] [place] [address] Care Team Providers Care Consulting Business Developer Name Role Phone Lorie Chan MD Primary Care Provider [phone] Reason for Visit * Reason Onset Date Comments Other 10/28/2021 Encounter Details Date Type Department Care Team (Late st Contact Info) Description 10/28/2021 Telephone [facility] General Surgery [address], [address] [place] [address] Federico Mayer MD [address] [facility] [address] [place] [address] Other Social History Tobacco Use Types Packs/Day [...] on file Legal Sex Male 9:58 PM FIELD SERVICE MANAGER Gender Identity Not on file Sexual Orientation Not on file COVID-19 Exposure Response Date Recorded In the last month, have you been in contact with someone who was confirmed or suspected to have Coronavirus / COVID-19? No / Unsure 10/27/2021 1:03 PM FIELD SERVICE MANAGER documented as of this encounter Functional Status * RETIRED Are you deaf or do you have serious difficulty hearing Answer Date of Assessment Author Status No 10/02/2021 12:38 PM FIELD SERVICE MANAGER Acti ve * RETIRED Are you blind or do you have serious difficulty seeing, even when wearing glasses? Answer Date of Assessment Author Status No 10/02/2021 12:38 PM FIELD SERVICE MANAGER Acti ve * Do you have serious difficulty walking or climbing stairs? Answer Date of Assessment Author Status No 10/02/2021 12:38 PM FIELD SERVICE MANAGER Annette Jorge, R N Active * Do you have difficulty dressing or bathing? Answer Date of Assessment Author Status No 10/02/2021 12:38 PM FIELD SERVICE MANAGER Annette Jorge, R N Active * Because of a physical, mental, or emotional condition, do you have difficulty doing errands alone such as visiting a doctor's office or shopping? Answer Date of Assessment Author Status No 10/02/2021 12:38 PM FIELD SERVICE MANAGER Annette Jorge, R N Active documented as of this encounter Mental Status * Because of a physical, mental, or emotional condition, do you have serious difficulty concentrating, remembering, or making decisions? Answer Entry Date Author Status No 10/02/2021 12:38 PM FIELD SERVICE MANAGER Annette Jorge R N Active documented in this encounter Progress Notes * Tyler Caballero MA - 10/28/2021 4:34 PM CST Patient is aware that the medication was called in yesterday. Patient is going to call the pharmacy. D SERVICE MANAGER * Denise Dasilva - 10/28/2021 1:16 PM CST Patient states that he was here yesterday was told that he was to get some medication . As of today, still has no medication ? Would like a phone call. States maybe he mis-understood? [phone] TY D SERVICE MANAGER documented in this encounter Plan of Treatment Upcoming Encounters Date Type Department Care Team (Late st Contact Info) Description 01/27/2025 7:00 AM CDT Office Visit [facility] Family & Internal Medicine - [place] [address] [place] [address] [place] [address] [place] [address] 10/22/2025 9:15 AM FIELD SERVICE MANAGER [facility] [address] [place] [address] Mily Gan MD [place] [place], [place] [phone] documented as of this encounter Goals Goal [...] on filedocumented in this encounter Care Teams Consulting Business Developer Relationship Specialty Start Date End Date Lorie Chan MD PCP - General INTERNAL MEDICINE 01/15/20 02/09/23 documented as of this encounter
--- OUTSIDE RECORDS SUMMARY | 2024-11-02 09:14 | XMS_ITS | Encounter Summary ---
Author Organization [facility] Address [address] [place] [address]. [place] [address] [place] [address] Care Team Providers Care Phone Circuit Operator Name Role Phone Lorie Chan MD Primary Care Provider [phone] Moraima Toledo RN Unavailable [phone] Reason for Visit * Reason Onset Date Comments Other 10/18/2021 Encounter Details Date Type Department Care Team (Late st Contact Info) Description 10/18/2021 Telephone [facility] Medical Group General Surgery - [place] [address] [facility], [address] [place] [address] Federico Mayer MD [address] [facility] [address] [place] [address] Other Social History Tobacco Use Types Packs/Day [...] file Legal Sex Male 9:58 PM FINANCIAL SALES REPRESENTATIVE Gender Identity Not on file Sexual Orientation Not on file COVID-19 Exposure Response Date Recorded In the last month, have you been in contact with someone who was confirmed or suspected to have Coronavirus / COVID-19? No / Unsure 10/27/2021 1:03 PM FINANCIAL SALES REPRESENTATIVE documented as of this encounter Functional Status * RETIRED Are you deaf or do you have serious difficulty hearing Answer Date of Assessment Author Status No 10/02/2021 12:38 PM FINANCIAL SALES REPRESENTATIVE Acti ve * RETIRED Are you blind or do you have serious difficulty seeing, even when wearing glasses? Answer Date of Assessment Author Status No 10/02/2021 12:38 PM FINANCIAL SALES REPRESENTATIVE Acti ve * Do you have serious difficulty walking or climbing stairs? Answer Date of Assessment Author Status No 10/02/2021 12:38 PM FINANCIAL SALES REPRESENTATIVE Annette Jorge, R N Active * Do you have difficulty dressing or bathing? Answer Date of Assessment Author Status No 10/02/2021 12:38 PM FINANCIAL SALES REPRESENTATIVE Annette Jorge, R N Active * Because of a physical, mental, or emotional condition, do you have difficulty doing errands alone such as visiting a doctor's office or shopping? Answer Date of Assessment Author Status No 10/02/2021 12:38 PM FINANCIAL SALES REPRESENTATIVE Annette Jorge, R N Active documented as of this encounter Mental Status * Because of a physical, mental, or emotional condition, do you have serious difficulty concentrating, remembering, or making decisions? Answer Entry Date Author Status No 10/02/2021 12:38 PM FINANCIAL SALES REPRESENTATIVE Annette Jorge, R N Active documented in this encounter Progress Notes * Sarai Thomas - 10/18/2021 9:17 AM CST Please call Libby concerning this patient. Thanks NCIAL SALES REPRESENTATIVE documented in this encounter Plan of Treatment Upcoming Encounters Date Type Department Care Team (Late st Contact Info) Description 01/27/2025 7:00 AM CDT Office Visit [facility] Medical Group Family & Internal Medicine - [place] [address] [place] [address] [place] [address] [place], [place] [id number] 10/22/2025 9:15 AM FINANCIAL SALES REPRESENTATIVE Office Visit [facility] [address] Mily Gan MD [facility] [address] [place], [place] [id number] documented as of this encounter Goals Goal [...] on filedocumented in this encounter Care Teams Phone Circuit Operator Relationship Specialty Start Date End Date Lorie Chan MD PCP - General INTERNAL MEDICINE 01/15/20 02/09/23 Moraima Toledo RN [address] [place] [address] Automotive Specialty Technician (Ambulatory) REGISTERED NURSE 09/23/21 documented as of this encounter
--- OUTSIDE RECORDS SUMMARY | 2024-11-02 09:14 | XMS_ITS | Encounter Summary ---
Author Organization [facility] Address [address] [place] [address]. [place], [place] [address] [place] [address] Care Team Providers Care Geology Scientist Name Role Phone Lorie Chan MD Primary Care Provider [phone] Reason for Visit * Auth/Cert Specialty Diagnoses / Procedures Referred By Shelby jama Referred To Contact Home Health Services / [facility] HOME HEALTH [facility] Home Care [facility] [address] [facility] [address] [place] [address] Phone: tel: fax: Referral ID Status Reason Start Date Expiration Date Visits Re quested Visits Authorized [id number] 1 1 Encounter Details Date Type Department Care Team (Late st Contact Info) Description 10/20/2021 10:30 AM COMPLIANCE NURSE Home Care Visit [facility] Home [facility] [address] [facility] [address] [place] [address] Hillary Wade, [facility] [...] file Legal Sex Male 9:58 PM COMPLIANCE NURSE Gender Identity Not on file Sexual Orientation Not on file COVID-19 Exposure Response Date Recorded In the last month, have you been in contact with someone who was confirmed or suspected to have Coronavirus / COVID-19? No / Unsure 10/15/2021 2:25 PM COMPLIANCE NURSE documented as of this encounter Last Filed Vital Signs Vital Sign Reading Time Taken Comments Blood Pressure 120/68 10/20/2021 10:45 AM COMPLIANCE NURSE Pulse 70 10/20/2021 10:45 AM COMPLIANCE NURSE Temperature 36.4 ??C (97.5 ??F) 10/20/2021 10:[address] Respiratory Rate 18 10/20/2021 10:45 AM COMPLIANCE NURSE Oxygen Saturation 98% 10/20/2021 10:45 AM COMPLIANCE NURSE Inhaled Oxygen Concentration - - Weight - - Height - - Body Mass Index - - documented in this encounter Functional Status * RETIRED Are you deaf or do you have serious difficulty hearing Answer Date of Assessment Author Status No 10/02/2021 12:38 PM COMPLIANCE NURSE Acti ve * RETIRED Are you blind or do you have serious difficulty seeing, even when wearing glasses? Answer Date of Assessment Author Status No 10/02/2021 12:38 PM COMPLIANCE NURSE Acti ve * Do you have serious difficulty walking or climbing stairs? Answer Date of Assessment Author Status No 10/02/2021 12:38 PM COMPLIANCE NURSE Annette Jorge R N Active * Do you have difficulty dressing or bathing? Answer Date of Assessment Author Status No 10/02/2021 12:38 PM COMPLIANCE NURSE Annette Jorge R N Active * Because of a physical, mental, or emotional condition, do you have difficulty doing errands alone such as visiting a doctor's office or shopping? Answer Date of Assessment Author Status No 10/02/2021 12:38 PM COMPLIANCE NURSE Annette Jorge R N Active documented as of this encounter Mental Status * Because of a physical, mental, or emotional condition, do you have serious difficulty concentrating, remembering, or making decisions? Answer Entry Date Author Status No 10/02/2021 12:38 PM COMPLIANCE NURSE Annette Jorge R N Active documented in this encounter Plan of Treatment Upcoming Encounters Date Type Department Care Team (Late st Contact Info) Description 01/27/2025 7:00 AM CDT Office Visit [facility] Medical Group Family & Internal Medicine - [place] [address] [place] [address] [place] [address] [place], [place] [id number] 10/22/2025 9:15 AM COMPLIANCE NURSE Office Visit [facility] [address] Mily Gan MD [place] [address] [place], [place] [phone] documented as of this encounter Goals Goal [...] Visit Type -SN - Home Visit Discipline -Long Term Problems Problem Description Start Date Status Goals Interve ntions Wound Management Disciplines: Long Term Skin integrity deficit related to: surgical wound wound. Location/site: abdomen 10/06/2021 Active 1 goal linked to scheduled/document ed intervention 1 problem intervention scheduled/document ed in this visit 5 goal interventions scheduled/document ed in this visit Collaboration of Care Disciplines: Long Term Collaboration for safe care. 10/06/2021 Active 2 goals linked to scheduled/document ed interventions 4 goal interventions scheduled/document ed in this visit Nutritional concerns Disciplines: Long Term Inadequate/imbala nced nutritional concerns 10/06/2021 Active 1 goal linked to scheduled/document ed intervention 1 goal intervention scheduled/document ed in this visit Pulse Oximetry Disciplines: Long Term Skilled assessment and monitoring of O2 saturations. 10/06/2021 Active 1 goal linked to scheduled/document ed intervention 1 goal intervention scheduled/document ed in this visit Fall Precautions Disciplines: Long Term Patient at risk for falls or has [...] Completed documented in this encounter Care Teams Geology Scientist Relationship Specialty Start Date End Date Lorie Chan MD PCP - General INTERNAL MEDICINE 01/15/20 02/09/23 documented as of this encounter
--- OUTSIDE RECORDS SUMMARY | 2024-11-02 09:14 | XMS_ITS | Encounter Summary ---
Author Organization [facility] Address [address] [place] [address]. [place], [place] [address] [place] [address] Care Team Providers Care Bookmaker'S Clerk Name Role Phone Lorie Chan MD Primary Care Provider [phone] Moraima Toledo RN Unavailable [phone] Reason for Visit * Auth/Cert Specialty Diagnoses / Procedures Referred By Shelby t Referred To Contact Home Health Services / [facility] HOME HEALTH [facility] Home Care [facility] [address] [facility] [address] [place] [address] Phone: tel: fax: Referral ID Status Reason Start Date Expiration Date Visits Re quested Visits Authorized [id number] 1 1 Encounter Details Date Type Department Care Team (Late st Contact Info) Description 10/18/2021 9:00 AM BIOMETRIC TECHNICIAN Home Care Visit [facility] Home Care [facility] [address] [facility] [address] [place] [address] Libby Syed RN [phone] (Work) SN HOME VISIT Social History Tobacco [...] on file Legal Sex Male 9:58 PM BIOMETRIC TECHNICIAN Gender Identity Not on file Sexual Orientation Not on file COVID-19 Exposure Response Date Recorded In the last month, have you been in contact with someone who was confirmed or suspected to have Coronavirus / COVID-19? No / Unsure 10/15/2021 2:25 PM BIOMETRIC TECHNICIAN documented as of this encounter Last Filed Vital Signs Vital Sign Reading Time Taken Comments Blood Pressure 126/70 10/18/2021 9:05 AM BIOMETRIC TECHNICIAN Pulse 78 10/18/2021 9:05 AM BIOMETRIC TECHNICIAN Temperature - - Respiratory Rate 18 10/18/2021 9:05 AM BIOMETRIC TECHNICIAN Oxygen Saturation 98% 10/18/2021 9:05 AM BIOMETRIC TECHNICIAN room air Inhaled Oxygen Concentration - - Weight - - Height - - Body Mass Index - - documented in this encounter Functional Status * RETIRED Are you deaf or do you have serious difficulty hearing Answer Date of Assessment Author Status No 10/02/2021 12:38 PM BIOMETRIC TECHNICIAN Acti ve * RETIRED Are you blind or do you have serious difficulty seeing, even when wearing glasses? Answer Date of Assessment Author Status No 10/02/2021 12:38 PM BIOMETRIC TECHNICIAN Acti ve * Do you have serious difficulty walking or climbing stairs? Answer Date of Assessment Author Status No 10/02/2021 12:38 PM BIOMETRIC TECHNICIAN Annette Jorge R N Active * Do you have difficulty dressing or bathing? Answer Date of Assessment Author Status No 10/02/2021 12:38 PM BIOMETRIC TECHNICIAN Annette Jorge R N Active * Because of a physical, mental, or emotional condition, do you have difficulty doing errands alone such as visiting a doctor's office or shopping? Answer Date of Assessment Author Status No 10/02/2021 12:38 PM BIOMETRIC TECHNICIAN Annette Jorge R N Active documented as of this encounter Mental Status * Because of a physical, mental, or emotional condition, do you have serious difficulty concentrating, remembering, or making decisions? Answer Entry Date Author Status No 10/02/2021 12:38 PM BIOMETRIC TECHNICIAN Annette Jorge R N Active documented in this encounter Plan of Treatment Upcoming Encounters Date Type Department Care Team (Late st Contact Info) Description 01/27/2025 7:00 AM CDT Office Visit [facility] Medical Group Family & Internal Medicine [facility] [address] [place] [address] [place] [address] [place] [address] 10/22/2025 9:15 AM BIOMETRIC TECHNICIAN Office Visit [facility]-[address] [address] Mily Gan MD [address] [phone] documented as of this encounter Goals Goal [...] Visit Type -SN - Home Visit Discipline -Custodial Problems Problem Description Start Date Status Goals Interve ntions Wound Management Disciplines: Custodial Skin integrity deficit related to: surgical wound wound. Location/site: abdomen 10/06/2021 Active 1 goal linked to scheduled/document ed intervention 1 problem intervention scheduled/document ed in this visit 6 goal interventions scheduled/document ed in this visit Collaboration of Care Disciplines: Custodial Collaboration for safe care. 10/06/2021 Active 2 goals linked to scheduled/document ed interventions 4 goal interventions scheduled/document ed in this visit Nutritional concerns Disciplines: Custodial Inadequate/imbala nced nutritional concerns 10/06/2021 Active 1 goal linked to scheduled/document ed intervention 1 goal intervention scheduled/document ed in this visit Pulse Oximetry Disciplines: Custodial Skilled assessment and monitoring of O2 saturations. 10/06/2021 Active 1 goal linked to scheduled/document ed intervention 1 goal intervention scheduled/document ed in this visit Fall Precautions Disciplines: Custodial Patient at risk for falls or has [...] Completed documented in this encounter Care Teams Bookmaker'S Clerk Relationship Specialty Start Date End Date Lorie Chan MD PCP - General INTERNAL MEDICINE 01/15/20 02/09/23 Moraima Toledo, RN [address] [place] [address] Straight Ruling Machine Operator (Ambulatory) REGISTERED NURSE 09/23/21 documented as of this encounter
--- OUTSIDE RECORDS SUMMARY | 2024-11-02 09:15 | XMS_ITS | Encounter Summary ---
Author Organization [facility] Address [address] [place] [address]. [place] [address] [place] [address] Care Team Providers Care Building Maintenance Custodian Name Role Phone Jeremy Castanon MD Primary Care Provider [phone] Moraima Toledo RN Unavailable [phone] Reason for Visit * Reason Comments Postop Followup reversal of nikki' s(09/22/2021) Encounter Details Date Type Department Care Team (Late st Contact Info) Description 10/08/2021 3:40 PM SEA AIR LAND OFFICER Office Visit [facility] Medical Group General Surgery [address], [facility] [address] [place] [address] Federico Amador MD [address] [address] Postop Followup (reversal of nikki's(09/22/2021) [...] on file Legal Sex Male 9:58 PM SEA AIR LAND OFFICER Gender Identity Not on file Sexual Orientation Not on file COVID-19 Exposure Response Date Recorded In the last month, have you been in contact with someone who was confirmed or suspected to have Coronavirus / COVID-19? No / Unsure 10/08/2021 3:43 PM SEA AIR LAND OFFICER documented as of this encounter Last Filed Vital Signs Vital Sign Reading Time Taken Comments Blood Pressure 120/60 10/08/2021 3:46 PM SEA AIR LAND OFFICER Pulse 74 10/08/2021 3:46 PM SEA AIR LAND OFFICER Temperature 36.2 ??C (97.2 ??F) 10/08/2021 3:46 PM CS T Respiratory Rate 16 10/08/2021 3:46 PM SEA AIR LAND OFFICER Oxygen Saturation 97% 10/08/2021 3:46 PM SEA AIR LAND OFFICER Inhaled Oxygen Concentration - - Weight 71.2 kg (157 lb) 10/08/2021 3:46 PM SEA AIR LAND OFFICER Height 170.2 cm (5' 7 ) 10/08/2021 3:46 PM SEA AIR LAND OFFICER Body Mass Index 24.59 10/08/2021 3:46 PM SEA AIR LAND OFFICER documented in this encounter Functional Status * RETIRED Are you deaf or do you have serious difficulty hearing Answer Date of Assessment Author Status No 10/02/2021 12:38 PM SEA AIR LAND OFFICER Acti ve * RETIRED Are you blind or do you have serious difficulty seeing, even when wearing glasses? Answer Date of Assessment Author Status No 10/02/2021 12:38 PM SEA AIR LAND OFFICER Acti ve * Do you have serious difficulty walking or climbing stairs? Answer Date of Assessment Author Status No 10/02/2021 12:38 PM SEA AIR LAND OFFICER Annette Jorge R N Active * Do you have difficulty dressing or bathing? Answer Date of Assessment Author Status No 10/02/2021 12:38 PM SEA AIR LAND OFFICER Annette Jorge R N Active * Because of a physical, mental, or emotional condition, do you have difficulty doing errands alone such as visiting a doctor's office or shopping? Answer Date of Assessment Author Status No 10/02/2021 12:38 PM SEA AIR LAND OFFICER Annette Jorge R N Active documented as of this encounter Mental Status * Because of a physical, mental, or emotional condition, do you have serious difficulty concentrating, remembering, or making decisions? Answer Entry Date Author Status No 10/02/2021 12:38 PM SEA AIR LAND OFFICER Annette Jorge R N Active documented [...] ostomy with polypectomy and biopsy performed by eFderico Amador MD at [facility] OR ??? COLOSTOMY reversable ??? HERNIA REPAIR Right [facility] ??? HERNIA REPAIR Left [facility] ??? NECK/CHEST PROCEDURE UNLISTED Right [facility], re-built right side of neck. ??? SMALL INTESTINE SURGERY bowel rupture ??? TOTAL KNEE ARTHROPLASTY Bilateral ZANA Partial KR, done @ [facility] Social History Tobacco Use ??? Smoking [...] Referring Provider: Dustin PCP: JEREMY CASTANON MD AIR LAND OFFICER documented in this encounter Plan of Treatment Upcoming Encounters Date Type Department Care Team (Late st Contact Info) Description 01/27/2025 7:00 AM CDT Office Visit [facility] Medical Group Family & Internal Medicine [address] [address] Ilir Nelson PA [address] [place] [address] 10/22/2025 9:15 AM SEA AIR LAND OFFICER Office Visit [facility] [address] Mily Gan MD [address] [address] documented as of this encounter [...] surgery documented in this encounter Care Teams Building Maintenance Custodian Relationship Specialty Start Date End Date Jeremy Castanon MD PCP - General INTERNAL MEDICINE 01/15/20 02/09/23 Moraima Toledo, RN [facility] [place] [address] Chip Mixing Machine Operator (Ambulatory) REGISTERED NURSE 09/23/21 documented as of this encounter
--- OUTSIDE RECORDS SUMMARY | 2024-11-02 09:15 | XMS_ITS | Encounter Summary ---
Author Organization [facility] Address [address] [place] [address]. [place] [address] [place] [address] Care Team Providers Care Dynamo Tender Name Role Phone Lorie Chan MD Primary Care Provider [phone] Moraima Toledo RN Unavailable [phone] Reason for Visit * Reason Onset Date Comments Appointment Request 10/04/2021 Encounter Details Date Type Department Care Team (Late st Contact Info) Description 10/04/2021 Telephone [facility] Medical Group General Surgery - [place] [address] [facility], [address] [place] [address] Federico Mayer MD [address] [facility] [address] [place] [address] Appointment Request Social History Tobacco Use Types [...] on file Legal Sex Male 9:58 PM MOTOR BRAKEMAN Gender Identity Not on file Sexual Orientation Not on file COVID-19 Exposure Response Date Recorded In the last month, have you been in contact with someone who was confirmed or suspected to have Coronavirus / COVID-19? No / Unsure 10/01/2021 7:57 AM MOTOR BRAKEMAN documented as of this encounter Functional Status * RETIRED Are you deaf or do you have serious difficulty hearing Answer Date of Assessment Author Status No 10/02/2021 12:38 PM MOTOR BRAKEMAN Acti ve * RETIRED Are you blind or do you have serious difficulty seeing, even when wearing glasses? Answer Date of Assessment Author Status No 10/02/2021 12:38 PM MOTOR BRAKEMAN Acti ve * Do you have serious difficulty walking or climbing stairs? Answer Date of Assessment Author Status No 10/02/2021 12:38 PM MOTOR BRAKEMAN Annette Jorge, R N Active * Do you have difficulty dressing or bathing? Answer Date of Assessment Author Status No 10/02/2021 12:38 PM MOTOR BRAKEMAN Annette Jorge, R N Active * Because of a physical, mental, or emotional condition, do you have difficulty doing errands alone such as visiting a doctor's office or shopping? Answer Date of Assessment Author Status No 10/02/2021 12:38 PM MOTOR BRAKEMAN Annette Jorge, R N Active documented as of this encounter Mental Status * Because of a physical, mental, or emotional condition, do you have serious difficulty concentrating, remembering, or making decisions? Answer Entry Date Author Status No 10/02/2021 12:38 PM MOTOR BRAKEMAN Annette Jorge, R N Active documented in this encounter Progress Notes * Tyler Caballero MA - 10/04/2021 9:51 AM CST Patient called and was discharged on Monday. 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 When would you like patient to be seen for a FU appointment? R BRAKEMAN documented in this encounter Plan of Treatment Upcoming Encounters Date Type Department Care Team (Late st Contact Info) Description 01/27/2025 7:00 AM CDT Office Visit [facility] Medical Group Family & Internal Medicine [facility] [address] [place] [address] [place] [address] [place], [place] [id number] 10/22/2025 9:15 AM MOTOR BRAKEMAN [facility] [address] [place] [address] Mily Gan MD [place] [address] [place] [address] documented as of this encounter [...] on filedocumented in this encounter Care Teams Dynamo Tender Relationship Specialty Start Date End Date Lorie Chan MD PCP - General INTERNAL MEDICINE 01/15/20 02/09/23 Moraima Toledo, RN [address] [place] [address] Wind Power Project Manager (Ambulatory) REGISTERED NURSE 09/23/21 documented as of this encounter
--- OUTSIDE RECORDS SUMMARY | 2024-11-02 09:15 | XMS_ITS | Encounter Summary ---
Author Organization [facility] Address [address] [place] [address]. [place], [place] [address] [place] [address] Care Team Providers Care Web Analyst Name Role Phone Lorie Chan MD Primary Care Provider [phone] Moraima Toledo RN Unavailable [phone] Reason for Visit * Auth/Cert Specialty Diagnoses / Procedures Referred By Shelby t Referred To Contact Home Health Services / [facility] HOME HEALTH [facility] Home Care [facility] [address] [facility] [address] [place] [address] Phone: tel: fax: Referral ID Status Reason Start Date Expiration Date Visits Re quested Visits Authorized [id number] 1 1 Encounter Details Date Type Department Care Team (Late st Contact Info) Description 10/11/2021 2:00 PM PARTS SALES COUNTERPERSON Home Care Visit [facility] Home Care [facility] [address] [facility] [address] [address] [place] [address] Ria Murrieta RN SN HOME [...] on file Legal Sex Male 9:58 PM PARTS SALES COUNTERPERSON Gender Identity Not on file Sexual Orientation Not on file COVID-19 Exposure Response Date Recorded In the last month, have you been in contact with someone who was confirmed or suspected to have Coronavirus / COVID-19? No / Unsure 10/11/2021 10:27 AM PARTS SALES COUNTERPERSON documented as of this encounter Last Filed Vital Signs Vital Sign Reading Time Taken Comments Blood Pressure 120/78 10/11/2021 1:55 PM PARTS SALES COUNTERPERSON Pulse 74 10/11/2021 1:55 PM PARTS SALES COUNTERPERSON Temperature 36.4 ??C (97.5 ??F) 10/11/2021 1:55 PM CS T Respiratory Rate 18 10/11/2021 1:55 PM PARTS SALES COUNTERPERSON Oxygen Saturation 98% 10/11/2021 1:55 PM PARTS SALES COUNTERPERSON Inhaled Oxygen Concentration - - Weight - - Height - - Body Mass Index - - documented in this encounter Functional Status * RETIRED Are you deaf or do you have serious difficulty hearing Answer Date of Assessment Author Status No 10/02/2021 12:38 PM PARTS SALES COUNTERPERSON Acti ve * RETIRED Are you blind or do you have serious difficulty seeing, even when wearing glasses? Answer Date of Assessment Author Status No 10/02/2021 12:38 PM PARTS SALES COUNTERPERSON Acti ve * Do you have serious difficulty walking or climbing stairs? Answer Date of Assessment Author Status No 10/02/2021 12:38 PM PARTS SALES COUNTERPERSON Annette Jorge R N Active * Do you have difficulty dressing or bathing? Answer Date of Assessment Author Status No 10/02/2021 12:38 PM PARTS SALES COUNTERPERSON Annette Jorge R N Active * Because of a physical, mental, or emotional condition, do you have difficulty doing errands alone such as visiting a doctor's office or shopping? Answer Date of Assessment Author Status No 10/02/2021 12:38 PM PARTS SALES COUNTERPERSON Annette Jorge R N Active documented as of this encounter Mental Status * Because of a physical, mental, or emotional condition, do you have serious difficulty concentrating, remembering, or making decisions? Answer Entry Date Author Status No 10/02/2021 12:38 PM PARTS SALES COUNTERPERSON Annette Jorge R N Active documented in this encounter Plan of Treatment Upcoming Encounters Date Type Department Care Team (Late st Contact Info) Description 01/27/2025 7:00 AM CDT Office Visit [facility] Medical Group Family & Internal Medicine - [place] [address] [place] [address] [place] [address] [place], [place] [phone] 10/22/2025 9:15 AM PARTS SALES COUNTERPERSON Office Visit [facility] [address] Mily Gan MD [address] [id number] documented as of this encounter Goals Goal [...] Completed documented in this encounter Care Teams Web Analyst Relationship Specialty Start Date End Date Lorie Chan MD PCP - General INTERNAL MEDICINE 01/15/20 02/09/23 Moraima Toledo, GINA [address] [place] [address] Health Information Technician (Ambulatory) REGISTERED NURSE 09/23/21 documented as of this encounter
--- OUTSIDE RECORDS SUMMARY | 2024-11-02 09:15 | XMS_ITS | Encounter Summary ---
Author Organization [facility] Address [address] [place] [address]. [place], [place] [address] [place] [address] Care Team Providers Care Lining Closer Name Role Phone Lorie Chan MD Primary Care Provider [phone] Moraima Toledo RN Unavailable [phone] Encounter Details Date Type Department Care Team [...] on file Legal Sex Male 9:58 PM CAMPUS COORDINATOR Gender Identity Not on file Sexual Orientation Not on file COVID-19 Exposure Response Date Recorded In the last month, have you been in contact with someone who was confirmed or suspected to have Coronavirus / COVID-19? No / Unsure 10/08/2021 3:43 PM CAMPUS COORDINATOR documented as of this encounter Functional Status * RETIRED Are you deaf or do you have serious difficulty hearing Answer Date of Assessment Author Status No 10/02/2021 12:38 PM CAMPUS COORDINATOR Acti ve * RETIRED Are you blind or do you have serious difficulty seeing, even when wearing glasses? Answer Date of Assessment Author Status No 10/02/2021 12:38 PM CAMPUS COORDINATOR Acti ve * Do you have serious difficulty walking or climbing stairs? Answer Date of Assessment Author Status No 10/02/2021 12:38 PM CAMPUS COORDINATOR Annette Jorge R N Active * Do you have difficulty dressing or bathing? Answer Date of Assessment Author Status No 10/02/2021 12:38 PM CAMPUS COORDINATOR Annette Jorge R N Active * Because of a physical, mental, or emotional condition, do you have difficulty doing errands alone such as visiting a doctor's office or shopping? Answer Date of Assessment Author Status No 10/02/2021 12:38 PM CAMPUS COORDINATOR Annette Jorge R N Active documented as of this encounter Mental Status * Because of a physical, mental, or emotional condition, do you have serious difficulty concentrating, remembering, or making decisions? Answer Entry Date Author Status No 10/02/2021 12:38 PM CAMPUS COORDINATOR Annette Jorge R N Active documented in this encounter Plan of Treatment Upcoming Encounters Date Type Department Care Team (Late st Contact Info) Description 01/27/2025 7:00 AM CDT Office Visit [facility] Medical Group Family & Internal Medicine [facility] [address] [place] [address] [place] [address] [place], [place] [phone] 10/22/2025 9:15 AM CAMPUS COORDINATOR Office Visit [facility] [address] Mily Gan MD [address] [address] documented as of this encounter Goals Goal [...] filedocumented in this encounter Care Teams Lining Closer Relationship Specialty Start Date End Date Lorie Chan MD PCP - General INTERNAL MEDICINE 01/15/20 02/09/23 Moraima Toledo, GINA [address] [place] [address] Manager Social Media (Ambulatory) REGISTERED NURSE 09/23/21 documented as of this encounter
--- OUTSIDE RECORDS SUMMARY | 2024-11-02 09:15 | XMS_ITS | Encounter Summary ---
Author Organization [facility] Address [address] [place] [address]. 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) Encounter Details Date Type Department Care Team (Late st Contact Info) Description 10/15/2021 2:20 PM SERVICE MECHANIC Office Visit [facility] Medical Group General Surgery [address], [facility] [address] [place] [address] Federico Amador MD [address] [address] Postop Followup (lap reversal of [...] on file Legal Sex Male 9:58 PM SERVICE MECHANIC Gender Identity Not on file Sexual Orientation Not on file COVID-19 Exposure Response Date Recorded In the last month, have you been in contact with someone who was confirmed or suspected to have Coronavirus / COVID-19? No / Unsure 10/15/2021 2:25 PM SERVICE MECHANIC documented as of this encounter Last Filed Vital Signs Vital Sign Reading Time Taken Comments Blood Pressure 110/62 10/15/2021 2:53 PM SERVICE MECHANIC Pulse 94 10/15/2021 2:53 PM SERVICE MECHANIC Temperature - - Respiratory Rate 16 10/15/2021 2:53 PM SERVICE MECHANIC Oxygen Saturation 97% 10/15/2021 2:53 PM SERVICE MECHANIC Inhaled Oxygen Concentration - - Weight 73 kg (161 lb) 10/15/2021 2:53 PM SERVICE MECHANIC Height 170.2 cm (5' 7 ) 10/15/2021 2:53 PM SERVICE MECHANIC Body Mass Index 25.22 10/15/2021 2:53 PM SERVICE MECHANIC documented in this encounter Functional Status * RETIRED Are you deaf or do you have serious difficulty hearing Answer Date of Assessment Author Status No 10/02/2021 12:38 PM SERVICE MECHANIC Acti ve * RETIRED Are you blind or do you have serious difficulty seeing, even when wearing glasses? Answer Date of Assessment Author Status No 10/02/2021 12:38 PM SERVICE MECHANIC Acti ve * Do you have serious difficulty walking or climbing stairs? Answer Date of Assessment Author Status No 10/02/2021 12:38 PM SERVICE MECHANIC Annette Jorge R N Active * Do you have difficulty dressing or bathing? Answer Date of Assessment Author Status No 10/02/2021 12:38 PM SERVICE MECHANIC Annette Jorge R N Active * Because of a physical, mental, or emotional condition, do you have difficulty doing errands alone such as visiting a doctor's office or shopping? Answer Date of Assessment Author Status No 10/02/2021 12:38 PM SERVICE MECHANIC Annette Jorge R N Active documented as of this encounter Mental Status * Because of a physical, mental, or emotional condition, do you have serious difficulty concentrating, remembering, or making decisions? Answer Entry Date Author Status No 10/02/2021 12:38 PM SERVICE MECHANIC Annette Jorge R N Active documented in [...] biopsy performed by Federico Amador MD at [facility] OR ??? COLOSTOMY reversable ??? HERNIA REPAIR Right [facility] ??? HERNIA REPAIR Left [facility] ??? NECK/CHEST PROCEDURE UNLISTED Right [facility], re-built right side of neck. ??? SMALL INTESTINE SURGERY bowel rupture ??? TOTAL KNEE ARTHROPLASTY Bilateral ZANA Partial KR, done @ [facility] Social History Tobacco Use ??? Smoking status: [...] Referring Provider: Dustin PCP: LORIE CASTANON MD ICE MECHANIC documented in this encounter Plan of Treatment Upcoming Encounters Date Type Department Care Team (Late st Contact Info) Description 01/27/2025 7:00 AM CDT Office Visit [facility] Medical Group Family & Internal Medicine - [place] [address] [place] [address] [place] [address] [place] [address] 10/22/2025 9:15 AM SERVICE MECHANIC Office Visit [facility] [address] Mily Gan MD [address] [address] documented as of this encounter [...] surgery documented in this encounter Care Teams Ramp Agent Relationship Specialty Start Date End Date Lorie Castanon MD PCP - General INTERNAL MEDICINE 01/15/20 02/09/23 Moraima Toledo, RN [address] [place] [address] [place] [address] Brass Cutter (Ambulatory) REGISTERED NURSE 09/23/21 documented as of this encounter
--- OUTSIDE RECORDS SUMMARY | 2024-11-02 09:15 | XMS_ITS | Encounter Summary ---
Author Organization [facility] Address [address] [place] [address]. [place] [address] [place] [address] Care Team Providers Care Zigzag Topstitcher Name Role Phone Lorie Chan MD Primary Care Provider [phone] Moraima Toledo RN Unavailable [phone] Reason for Visit * Reason Onset Date Comments [facility] 10/04/2021 [facility] 09/22-10/02 Encounter Details Date Type Department Care Team (Late st Contact Info) Description 10/04/2021 Patient Outreach [facility] Medical Group Family & Internal Medicine [address] [address] Moraima Toledo, RN [address] [place] [address] TCM ([facility] 09/22-10/02) Social History Tobacco Use Types Packs/Day [...] on file Legal Sex Male 9:58 PM WOOD SCRAP HANDLER Gender Identity Not on file Sexual Orientation Not on file COVID-19 Exposure Response Date Recorded In the last month, have you been in contact with someone who was confirmed or suspected to have Coronavirus / COVID-19? No / Unsure 10/01/2021 7:57 AM WOOD SCRAP HANDLER documented as of this encounter Functional Status * RETIRED Are you deaf or do you have serious difficulty hearing Answer Date of Assessment Author Status No 10/02/2021 12:38 PM WOOD SCRAP HANDLER Acti ve * RETIRED Are you blind or do you have serious difficulty seeing, even when wearing glasses? Answer Date of Assessment Author Status No 10/02/2021 12:38 PM WOOD SCRAP HANDLER Acti ve * Do you have serious difficulty walking or climbing stairs? Answer Date of Assessment Author Status No 10/02/2021 12:38 PM WOOD SCRAP HANDLER Annette Jorge, R N Active * Do you have difficulty dressing or bathing? Answer Date of Assessment Author Status No 10/02/2021 12:38 PM WOOD SCRAP HANDLER Annette Jorge, R N Active * Because of a physical, mental, or emotional condition, do you have difficulty doing errands alone such as visiting a doctor's office or shopping? Answer Date of Assessment Author Status No 10/02/2021 12:38 PM WOOD SCRAP HANDLER Annette Jorge, R N Active documented as of this encounter Mental Status * Because of a physical, mental, or emotional condition, do you have serious difficulty concentrating, remembering, or making decisions? Answer Entry Date Author Status No 10/02/2021 12:38 PM WOOD SCRAP HANDLER Annette Jorge, R N Active documented in this encounter Progress Notes * Moraima Toledo RN - 10/04/2021 7:26 AM CST Follow up call to patient post hospitalization Patient admitted to [facility] 09/22/21 with discharge diagnosis [...] Discharge Disposition: Home with Home Health - [facility]. Patient stated C will be calling him today. Any follow up appointments needed to be scheduled: yes - . Patient stated he left a message for her office to call about an appointment. Future Appointments Date Time Provider Department Center 10/11/2021 10:40 AM Beckie Sandra NP [facility] 01/06/2022 7:40 AM [facility] 01/11/2022 8:40 AM Lorie Chan MD [facility] [...] or call before that time if needed. SCRAP HANDLER * Xi Page RN - 10/04/2021 7:26 AM CST Please advise SCRAP HANDLER documented in this encounter Plan of Treatment Upcoming Encounters Date Type Department Care Team (Late st Contact Info) Description 01/27/2025 7:00 AM CDT Office Visit [facility] Medical Group Family & Internal Medicine - [place] [address] [place] [address] [place] [address] [place], [place] [phone] 10/22/2025 9:15 AM WOOD SCRAP HANDLER Office Visit [facility] [address] [place] [address] Mily Gan MD Three [facility]. [facility] [address] [place] [address] documented as of this encounter [...] on filedocumented in this encounter Care Teams Zigzag Topstitcher Relationship Specialty Start Date End Date Lorie Chan MD PCP - General INTERNAL MEDICINE 01/15/20 02/09/23 Moraima Toledo, RN [address] [place] [address] Sweatband Maker (Ambulatory) REGISTERED NURSE 09/23/21 documented as of this encounter
--- OUTSIDE RECORDS SUMMARY | 2024-11-02 09:15 | XMS_ITS | Encounter Summary ---
Author Organization [facility] Address [address] [place] [address]. [place] [address] [place] [address] Care Team Providers Care Technical Services Consultant Name Role Phone Lorie Chan MD Primary Care Provider [phone] Moraima Toledo RN Unavailable Reason for Visit * Reason Onset Date Comments Error 10/06/2021 Encounter Details Date Type Department Care Team (Late st Contact Info) Description 10/06/2021 Telephone [facility] Medical Group Family & Internal Medicine [facility] [address] [place] [address] Federico Mayer MD [address] [facility] [address] [place] [address] Error Social History Tobacco Use Types Packs/Day [...] on file Legal Sex Male 9:58 PM DRAWING TENDER Gender Identity Not on file Sexual Orientation Not on file COVID-19 Exposure Response Date Recorded In the last month, have you been in contact with someone who was confirmed or suspected to have Coronavirus / COVID-19? No / Unsure 10/11/2021 10:27 AM DRAWING TENDER documented as of this encounter Functional Status * RETIRED Are you deaf or do you have serious difficulty hearing Answer Date of Assessment Author Status No 10/02/2021 12:38 PM DRAWING TENDER Acti ve * RETIRED Are you blind or do you have serious difficulty seeing, even when wearing glasses? Answer Date of Assessment Author Status No 10/02/2021 12:38 PM DRAWING TENDER Acti ve * Do you have serious difficulty walking or climbing stairs? Answer Date of Assessment Author Status No 10/02/2021 12:38 PM DRAWING TENDER Annette Jorge, R N Active * Do you have difficulty dressing or bathing? Answer Date of Assessment Author Status No 10/02/2021 12:38 PM DRAWING TENDER Annette Jorge, R N Active * Because of a physical, mental, or emotional condition, do you have difficulty doing errands alone such as visiting a doctor's office or shopping? Answer Date of Assessment Author Status No 10/02/2021 12:38 PM DRAWING TENDER Annette Jorge, R N Active documented as of this encounter Mental Status * Because of a physical, mental, or emotional condition, do you have serious difficulty concentrating, remembering, or making decisions? Answer Entry Date Author Status No 10/02/2021 12:38 PM DRAWING TENDER Annette Jorge, R N Active documented in this encounter Progress Notes * Summer Gilliland - 10/06/2021 9:37 AM CST Error ING TENDER documented in this encounter Plan of Treatment Upcoming Encounters Date Type Department Care Team (Late st Contact Info) Description 01/27/2025 7:00 AM CDT Office Visit [facility] Medical Group Family & Internal Medicine [address] [address] [place] [address] [place] [address] 10/22/2025 9:15 AM DRAWING TENDER Office Visit [facility] [address] [place] [address] Mily Gan MD Three [facility] [address] [place], [place] [phone] documented as of this encounter Goals Goal [...] on filedocumented in this encounter Care Teams Technical Services Consultant Relationship Specialty Start Date End Date Lorie Chan MD PCP - General INTERNAL MEDICINE 01/15/20 02/09/23 Moraima Toledo RN [address] [place] [address] Public Stenographer (Ambulatory) REGISTERED NURSE 09/23/21 documented as of this encounter
--- OUTSIDE RECORDS SUMMARY | 2024-11-02 09:15 | XMS_ITS | Encounter Summary ---
Author Organization [facility] Address [address] [place] [address]. [place], [place] [address] [place] [address] Care Team Providers Care Cruise Consultant Name Role Phone Lorie Chan MD Primary Care Provider [phone] Moraima Toledo RN Unavailable [phone] Reason for Visit * Auth/Cert Specialty Diagnoses / Procedures Referred By Shelby t Referred To Contact Home Health Services / [facility] HOME HEALTH [facility] Home Care [facility] [address] [facility] [address] [place] [address] Phone: tel: fax: Referral ID Status Reason Start Date Expiration Date Visits Re quested Visits Authorized [id number] 1 1 Encounter Details Date Type Department Care Team (Late st Contact Info) Description 10/11/2021 Home Care Visit [facility] Home Care [facility] [address] [facility] [address] [place] [address] Brunilda Browne, RN CASE COMMUNICATION [...] on file Legal Sex Male 9:58 PM RIG HAND Gender Identity Not on file Sexual Orientation Not on file COVID-19 Exposure Response Date Recorded In the last month, have you been in contact with someone who was confirmed or suspected to have Coronavirus / COVID-19? No / Unsure 10/08/2021 3:43 PM RIG HAND documented as of this encounter Functional Status * RETIRED Are you deaf or do you have serious difficulty hearing Answer Date of Assessment Author Status No 10/02/2021 12:38 PM RIG HAND Acti ve * RETIRED Are you blind or do you have serious difficulty seeing, even when wearing glasses? Answer Date of Assessment Author Status No 10/02/2021 12:38 PM RIG HAND Acti ve * Do you have serious difficulty walking or climbing stairs? Answer Date of Assessment Author Status No 10/02/2021 12:38 PM RIG HAND Annette Jorge R N Active * Do you have difficulty dressing or bathing? Answer Date of Assessment Author Status No 10/02/2021 12:38 PM RIG HAND Annette Jorge R N Active * Because of a physical, mental, or emotional condition, do you have difficulty doing errands alone such as visiting a doctor's office or shopping? Answer Date of Assessment Author Status No 10/02/2021 12:38 PM RIG HAND Annette Jorge R N Active documented as of this encounter Mental Status * Because of a physical, mental, or emotional condition, do you have serious difficulty concentrating, remembering, or making decisions? Answer Entry Date Author Status No 10/02/2021 12:38 PM RIG HAND Annette Jorge R N Active documented in this encounter Plan of Treatment Upcoming Encounters Date Type Department Care Team (Late st Contact Info) Description 01/27/2025 7:00 AM CDT Office Visit [facility] Medical Group Family & Internal Medicine [address] [address] [place] [address] [place] [address] 10/22/2025 9:15 AM RIG HAND Office Visit [facility] [address] [place] [address] Mily Gan MD Three [facility] [address] [place], [place] [phone] documented as of this encounter Goals Goal [...] on filedocumented in this encounter Care Teams Cruise Consultant Relationship Specialty Start Date End Date Lorie Chan MD PCP - General INTERNAL MEDICINE 01/15/20 02/09/23 Moraima Toledo RN [address] [place] [address] Ethyl Blender (Ambulatory) REGISTERED NURSE 09/23/21 documented as of this encounter
--- OUTSIDE RECORDS SUMMARY | 2024-11-02 09:15 | XMS_ITS | Encounter Summary ---
Author Organization [facility] Address [address] [place] [address]. [place], [place] [address] [place] [address] Care Team Providers Care Shirring Machine Operator Automatic Name Role Phone Lorie Chan MD Primary Care Provider [phone] Moraima Toledo RN Unavailable [phone] Reason for Visit * Reason Comments Surgical Followup Surgery was on the 11/22 and was in hospital 12 days here at [facility] Encounter Details Date Type Department Care Team (Late st Contact Info) Description 10/11/2021 10:40 AM VOCATIONAL NURSE LVN Office Visit [facility] Family & Internal Medicine [address] [address] Bhanu Saldana, APARTMENT LEASING AGENT Surgical Followup (Surgery was on the 09/22 and was in hospital 12 days here at [facility]) Social History Tobacco Use Types Packs/Day Years [...] on file Legal Sex Male 9:58 PM VOCATIONAL NURSE LVN Gender Identity Not on file Sexual Orientation Not on file COVID-19 Exposure Response Date Recorded In the last month, have you been in contact with someone who was confirmed or suspected to have Coronavirus / COVID-19? No / Unsure 10/11/2021 10:27 AM VOCATIONAL NURSE LVN documented as of this encounter Last Filed Vital Signs Vital Sign Reading Time Taken Comments Blood Pressure 110/68 10/11/2021 10:35 AM VOCATIONAL NURSE LVN Pulse 69 10/11/2021 10:35 AM VOCATIONAL NURSE LVN Temperature 36.6 ??C (97.9 ??F) 10/11/2021 10:[address] Respiratory Rate 16 10/11/2021 10:35 AM VOCATIONAL NURSE LVN Oxygen Saturation 99% 10/11/2021 10:35 AM VOCATIONAL NURSE LVN Inhaled Oxygen Concentration - - Weight 71.8 kg (158 lb 6.4 oz) 10/11/2021 10:35 AM VOCATIONAL NURSE LVN Height 170.2 cm (5' 7 ) 10/11/2021 10:35 AM VOCATIONAL NURSE LVN Body Mass Index 24.81 10/11/2021 10:35 AM VOCATIONAL NURSE LVN documented in this encounter Functional Status * RETIRED Are you deaf or do you have serious difficulty hearing Answer Date of Assessment Author Status No 10/02/2021 12:38 PM VOCATIONAL NURSE LVN Acti ve * RETIRED Are you blind or do you have serious difficulty seeing, even when wearing glasses? Answer Date of Assessment Author Status No 10/02/2021 12:38 PM VOCATIONAL NURSE LVN Acti ve * Do you have serious difficulty walking or climbing stairs? Answer Date of Assessment Author Status No 10/02/2021 12:38 PM VOCATIONAL NURSE LVN Annette Jorge R N Active * Do you have difficulty dressing or bathing? Answer Date of Assessment Author Status No 10/02/2021 12:38 PM VOCATIONAL NURSE LVN Annette Jorge R N Active * Because of a physical, mental, or emotional condition, do you have difficulty doing errands alone such as visiting a doctor's office or shopping? Answer Date of Assessment Author Status No 10/02/2021 12:38 PM VOCATIONAL NURSE LVN Annette Jorge R N Active documented as of this encounter Mental Status * Because of a physical, mental, or emotional condition, do you have serious difficulty concentrating, remembering, or making decisions? Answer Entry Date Author Status No 10/02/2021 12:38 PM VOCATIONAL NURSE LVN Annette Jorge R N Active documented in this encounter Progress Notes * Bhanu Saldana NP - 10/11/2021 10:40 AM CST Reason for Visit: Surgical Followup (Surgery was on the 09/22 and was in hospital 12 days here at [facility]) History of Present Illness: Pt. Was admitted to: [facility] Pt was admitted on: 09/22/2021 Pt was discharged on:10/02/2021 Admit Diagnosis: Colostomy reversal Initial Nursing contact: See telephone encounter on: Discharge note from [facility] was reviewed Since Discharge: Natan has been [...] biopsy performed by Federico Mayer MD at [facility] OR ??? COLOSTOMY reversable ??? HERNIA REPAIR Right [facility] ??? HERNIA REPAIR Left [facility] ??? NECK/CHEST PROCEDURE UNLISTED Right [facility], re-built right side of neck. ??? SMALL INTESTINE SURGERY bowel rupture ??? TOTAL KNEE ARTHROPLASTY Bilateral ZANA Partial KR, done @ [facility] Social History Socioeconomic History ??? [...] week BHANU SALDANA NP 10/11/2021 11:13 AM TIONAL NURSE LVN documented in this encounter Plan of Treatment Upcoming Encounters Date Type Department Care Team (Late st Contact Info) Description 01/27/2025 7:00 AM CDT Office Visit [facility] Family & Internal Medicine [facility] [address] [place] [address] [place] [address] [place] [address] 10/22/2025 9:15 AM VOCATIONAL NURSE LVN Office Visit [facility] [address] Mily Gan MD [address] [phone] documented as of this encounter Goals Goal [...] encounter Visit Diagnoses Diagnosis Colostomy status (CMS/HCC [facility]/HCC)- Primary Colostomy status documented in this encounter Care Teams Shirring Machine Operator Automatic Relationship Specialty Start Date End Date Lorie Chan MD PCP - General INTERNAL MEDICINE 01/15/20 02/09/23 Moraima Toledo RN [address] [place], [place] [id number] Utility Porter (Ambulatory) REGISTERED NURSE 09/23/21 documented as of this encounter
--- OUTSIDE RECORDS SUMMARY | 2024-11-02 09:15 | XMS_ITS | Encounter Summary ---
Author Organization [facility] Address [address] [place] [address]. [place], [place] [address] [place] [address] Care Team Providers Care Retail Marketing Specialist Name Role Phone Lorie Chan MD Primary Care Provider [phone] Moraima Toledo RN Unavailable [phone] Reason for Visit * Auth/Cert Specialty Diagnoses / Procedures Referred By Shelby t Referred To Contact Home Health Services / [facility] HOME HEALTH [facility] Home Care [facility] [address] [facility] [address] [place] [address] Phone: tel: fax: Referral ID Status Reason Start Date Expiration Date Visits Re quested Visits Authorized [id number] 1 1 Encounter Details Date Type Department Care Team (Late st Contact Info) Description 10/13/2021 11:45 AM ENROLLMENT MANAGEMENT MANAGER Home Care Visit [facility] Home Care [facility] [address] [facility] [address] [place] [phone] Sherrie Patton, RN [phone] (Work) SN HOME VISIT Social History [...] on file Legal Sex Male 9:58 PM ENROLLMENT MANAGEMENT MANAGER Gender Identity Not on file Sexual Orientation Not on file COVID-19 Exposure Response Date Recorded In the last month, have you been in contact with someone who was confirmed or suspected to have Coronavirus / COVID-19? No / Unsure 10/11/2021 10:27 AM ENROLLMENT MANAGEMENT MANAGER documented as of this encounter Last Filed Vital Signs Vital Sign Reading Time Taken Comments Blood Pressure 122/64 10/13/2021 12:59 PM ENROLLMENT MANAGEMENT MANAGER Pulse 76 10/13/2021 12:59 PM ENROLLMENT MANAGEMENT MANAGER Temperature 36.3 ??C (97.3 ??F) 10/13/2021 12:[address] Respiratory Rate 20 10/13/2021 12:59 PM ENROLLMENT MANAGEMENT MANAGER Oxygen Saturation 98% 10/13/2021 12:59 PM ENROLLMENT MANAGEMENT MANAGER Inhaled Oxygen Concentration - - Weight - - Height - - Body Mass Index - - documented in this encounter Functional Status * RETIRED Are you deaf or do you have serious difficulty hearing Answer Date of Assessment Author Status No 10/02/2021 12:38 PM ENROLLMENT MANAGEMENT MANAGER Acti ve * RETIRED Are you blind or do you have serious difficulty seeing, even when wearing glasses? Answer Date of Assessment Author Status No 10/02/2021 12:38 PM ENROLLMENT MANAGEMENT MANAGER Acti ve * Do you have serious difficulty walking or climbing stairs? Answer Date of Assessment Author Status No 10/02/2021 12:38 PM ENROLLMENT MANAGEMENT MANAGER Annette Jorge R N Active * Do you have difficulty dressing or bathing? Answer Date of Assessment Author Status No 10/02/2021 12:38 PM ENROLLMENT MANAGEMENT MANAGER Annette Jorge R N Active * Because of a physical, mental, or emotional condition, do you have difficulty doing errands alone such as visiting a doctor's office or shopping? Answer Date of Assessment Author Status No 10/02/2021 12:38 PM ENROLLMENT MANAGEMENT MANAGER Annette Jorge R N Active documented as of this encounter Mental Status * Because of a physical, mental, or emotional condition, do you have serious difficulty concentrating, remembering, or making decisions? Answer Entry Date Author Status No 10/02/2021 12:38 PM ENROLLMENT MANAGEMENT MANAGER Annette Jorge R N Active documented in this encounter Plan of Treatment Upcoming Encounters Date Type Department Care Team (Late st Contact Info) Description 01/27/2025 7:00 AM CDT Office Visit [facility] Family & Internal Medicine - [place] [address] [place] [address] [place] [address] [place], [place] [phone] 10/22/2025 9:15 AM ENROLLMENT MANAGEMENT MANAGER Office Visit [facility] [address] [address] Mily Gan MD [address] [address] documented as of this encounter [...] Visit Type -SN - Home Visit Discipline -Long-Term Problems Problem Description Start Date Status Goals Interve ntions Wound Management Disciplines: Long-Term Skin integrity deficit related to: surgical wound wound. Location/site: abdomen 10/06/2021 Active 1 goal linked to scheduled/document ed intervention 7 goal interventions scheduled/document ed in this visit Collaboration of Care Disciplines: Long-Term Collaboration for safe care. 10/06/2021 Active 2 goals linked to scheduled/document ed interventions 4 goal interventions scheduled/document ed in this visit Nutritional concerns Disciplines: Long-Term Inadequate/imbala nced nutritional concerns 10/06/2021 Active 1 [...] Completed documented in this encounter Care Teams Retail Marketing Specialist Relationship Specialty Start Date End Date Lorie Chan MD PCP - General INTERNAL MEDICINE 01/15/20 02/09/23 Moraima Toledo, RN [address] [place] [address] Career Development Associate (Ambulatory) REGISTERED NURSE 09/23/21 documented as of this encounter
--- OUTSIDE RECORDS SUMMARY | 2024-11-02 09:15 | XMS_ITS | Encounter Summary ---
Author Organization [facility] Address [address] [place] [address]. [place] [address] [place] [address] Care Team Providers Care Silk Trimmer Name Role Phone Lorie Chan MD Primary Care Provider [phone] Moraima Toledo RN Unavailable [phone] Reason for Visit * Reason Onset Date Comments Other 10/06/2021 Encounter Details Date Type Department Care Team (Late st Contact Info) Description 10/06/2021 Telephone [facility] General Surgery - [place] [address] [facility], [address] [place] [address] Federico Mayer MD [address] [facility] [address] [place] [address] Other Social History Tobacco Use Types Packs/Day [...] on file Legal Sex Male 9:58 PM ELECTROCARDIOGRAPH TECHNICIAN Gender Identity Not on file Sexual Orientation Not on file COVID-19 Exposure Response Date Recorded In the last month, have you been in contact with someone who was confirmed or suspected to have Coronavirus / COVID-19? No / Unsure 10/11/2021 10:27 AM ELECTROCARDIOGRAPH TECHNICIAN documented as of this encounter Functional Status * RETIRED Are you deaf or do you have serious difficulty hearing Answer Date of Assessment Author Status No 10/02/2021 12:38 PM ELECTROCARDIOGRAPH TECHNICIAN Acti ve * RETIRED Are you blind or do you have serious difficulty seeing, even when wearing glasses? Answer Date of Assessment Author Status No 10/02/2021 12:38 PM ELECTROCARDIOGRAPH TECHNICIAN Acti ve * Do you have serious difficulty walking or climbing stairs? Answer Date of Assessment Author Status No 10/02/2021 12:38 PM ELECTROCARDIOGRAPH TECHNICIAN Annette Jorge, R N Active * Do you have difficulty dressing or bathing? Answer Date of Assessment Author Status No 10/02/2021 12:38 PM ELECTROCARDIOGRAPH TECHNICIAN Annette Jorge, R N Active * Because of a physical, mental, or emotional condition, do you have difficulty doing errands alone such as visiting a doctor's office or shopping? Answer Date of Assessment Author Status No 10/02/2021 12:38 PM ELECTROCARDIOGRAPH TECHNICIAN Annette Jorge, R N Active documented as of this encounter Mental Status * Because of a physical, mental, or emotional condition, do you have serious difficulty concentrating, remembering, or making decisions? Answer Entry Date Author Status No 10/02/2021 12:38 PM ELECTROCARDIOGRAPH TECHNICIAN Annette Jorge, R N Active documented in this encounter Progress Notes * Tyler Caballero MA - 10/06/2021 11:44 AM CST Talked to anita at [facility] to tell her that we will be changing the bandage due to Dr. Mayer will be checking the wound. TROCARDIOGRAPH TECHNICIAN * Sarai Thomas - 10/06/2021 10:47 AM CST Anita from [facility] home health called w/questions on patients bandage change Monday? [facility] would like to know if you would like for them to change bandages anyway orwait for you to do it since he has senthil? Also, during bandage change today one of the senthil came out but wound was healed well. Thanks TROCARDIOGRAPH TECHNICIAN documented in this encounter Plan of Treatment Upcoming Encounters Date Type Department Care Team (Late st Contact Info) Description 01/27/2025 7:00 AM CDT Office Visit [facility] Family & Internal Medicine - [place] [address] [place] [address] [place] [address] [place] [address] 10/22/2025 9:15 AM ELECTROCARDIOGRAPH TECHNICIAN Office Visit [facility] [address] Mily Gan MD [address] [address] documented as of this encounter [...] on filedocumented in this encounter Care Teams Silk Trimmer Relationship Specialty Start Date End Date Lorie Chan MD PCP - General INTERNAL MEDICINE 01/15/20 02/09/23 Moraima Toledo, RN [address] [place] [address] Deputy Sheriff Lieutenant (Ambulatory) REGISTERED NURSE 09/23/21 documented as of this encounter
--- OUTSIDE RECORDS SUMMARY | 2024-11-02 09:15 | XMS_ITS | Encounter Summary ---
Author Organization [facility] Address [address] [place] [address]. [place] [address] [place] [address] Care Team Providers Care Staking Engineer Name Role Phone Lorie Chan MD Primary Care Provider [phone] Moraima Toledo RN Unavailable [phone] Encounter Details Date Type Department Care Team (Late st Contact Info) Description 10/06/2021 Plan of Care Documentation [facility] Home Care [facility] [address] [facility] [address] [place] [address] Social History Tobacco Use Types [...] on file Legal Sex Male 9:58 PM DISTANCE LEARNING COORDINATOR Gender Identity Not on file Sexual Orientation Not on file COVID-19 Exposure Response Date Recorded In the last month, have you been in contact with someone who was confirmed or suspected to have Coronavirus / COVID-19? No / Unsure 10/01/2021 7:57 AM DISTANCE LEARNING COORDINATOR documented as of this encounter Functional Status * RETIRED Are you deaf or do you have serious difficulty hearing Answer Date of Assessment Author Status No 10/02/2021 12:38 PM DISTANCE LEARNING COORDINATOR Acti ve * RETIRED Are you blind or do you have serious difficulty seeing, even when wearing glasses? Answer Date of Assessment Author Status No 10/02/2021 12:38 PM DISTANCE LEARNING COORDINATOR Acti ve * Do you have serious difficulty walking or climbing stairs? Answer Date of Assessment Author Status No 10/02/2021 12:38 PM DISTANCE LEARNING COORDINATOR Annette Jorge R N Active * Do you have difficulty dressing or bathing? Answer Date of Assessment Author Status No 10/02/2021 12:38 PM DISTANCE LEARNING COORDINATOR Annette Jorge, R N Active * Because of a physical, mental, or emotional condition, do you have difficulty doing errands alone such as visiting a doctor's office or shopping? Answer Date of Assessment Author Status No 10/02/2021 12:38 PM DISTANCE LEARNING COORDINATOR Annette Jorge, R N Active documented as of this encounter Mental Status * Because of a physical, mental, or emotional condition, do you have serious difficulty concentrating, remembering, or making decisions? Answer Entry Date Author Status No 10/02/2021 12:38 PM DISTANCE LEARNING COORDINATOR Annette Jorge, R N Active documented in this encounter Plan of Treatment Upcoming Encounters Date Type Department Care Team (Late st Contact Info) Description 01/27/2025 7:00 AM CDT Office Visit [facility] Family & Internal Medicine [facility] [address] [place] [address] [place] [address] [place] [address] 10/22/2025 9:15 AM DISTANCE LEARNING COORDINATOR Office Visit [facility]-[address] [address] Mily Gan MD [facility] [address] [place] [address] documented as of this encounter Goals Goal [...] on filedocumented in this encounter Care Teams Staking Engineer Relationship Specialty Start Date End Date Lorie Chan MD PCP - General INTERNAL MEDICINE 01/15/20 02/09/23 Moraima Toledo RN [address] [place], [place] [phone] [employer] Worker (Ambulatory) REGISTERED NURSE 09/23/21 documented as of this encounter
--- OUTSIDE RECORDS SUMMARY | 2024-11-02 09:15 | XMS_ITS | Encounter Summary ---
Author Organization [facility] Address [address] [place] [address]. [place], [place] [address] [place] [address] Care Team Providers Care Diploma Pharmacy Technician Name Role Phone Lorie Chan MD Primary Care Provider [phone] Moraima Toledo RN Unavailable [phone] Reason for Visit * Auth/Cert Specialty Diagnoses / Procedures Referred By Shelby t Referred To Contact Home Health Services / [facility] HOME HEALTH [facility] Home Care [facility] [address] [facility] [address] [place] [address] Phone: tel: fax: Referral ID Status Reason Start Date Expiration Date Visits Re quested Visits Authorized [id number] 1 1 Encounter Details Date Type Department Care Team (Latest Contact Info) Description 10/06/2021 9:00 AM HISTOLOGY TECHNICIAN Home Care Visit [facility] Home Care [facility] [address] [facility] [address] [place] [address] Nery Kelsey RN SN OASIS [...] on file Legal Sex Male 9:58 PM HISTOLOGY TECHNICIAN Gender Identity Not on file Sexual Orientation Not on file COVID-19 Exposure Response Date Recorded In the last month, have you been in contact with someone who was confirmed or suspected to have Coronavirus / COVID-19? No / Unsure 10/11/2021 10:27 AM HISTOLOGY TECHNICIAN documented as of this encounter Last Filed Vital Signs Vital Sign Reading Time Taken Comments Blood Pressure 110/64 10/06/2021 9:29 AM HISTOLOGY TECHNICIAN Pulse 69 10/06/2021 9:29 AM HISTOLOGY TECHNICIAN Temperature 36.6 ??C (97.8 ??F) 10/06/2021 9:29 AM CS T Respiratory Rate 16 10/06/2021 9:29 AM HISTOLOGY TECHNICIAN Oxygen Saturation 99% 10/06/2021 9:29 AM HISTOLOGY TECHNICIAN Inhaled Oxygen Concentration - - Weight - - Height - - Body Mass Index - - documented in this encounter Functional Status * RETIRED Are you deaf or do you have serious difficulty hearing Answer Date of Assessment Author Status No 10/02/2021 12:38 PM HISTOLOGY TECHNICIAN Acti ve * RETIRED Are you blind or do you have serious difficulty seeing, even when wearing glasses? Answer Date of Assessment Author Status No 10/02/2021 12:38 PM HISTOLOGY TECHNICIAN Acti ve * Do you have serious difficulty walking or climbing stairs? Answer Date of Assessment Author Status No 10/02/2021 12:38 PM HISTOLOGY TECHNICIAN Annette Jorge R N Active * Do you have difficulty dressing or bathing? Answer Date of Assessment Author Status No 10/02/2021 12:38 PM HISTOLOGY TECHNICIAN Annetet Jorge R N Active * Because of a physical, mental, or emotional condition, do you have difficulty doing errands alone such as visiting a doctor's office or shopping? Answer Date of Assessment Author Status No 10/02/2021 12:38 PM HISTOLOGY TECHNICIAN Annette Jorge R N Active documented as of this encounter Mental Status * Because of a physical, mental, or emotional condition, do you have serious difficulty concentrating, remembering, or making decisions? Answer Entry Date Author Status No 10/02/2021 12:38 PM HISTOLOGY TECHNICIAN Annette Jorge R N Active documented in this encounter Plan of Treatment Upcoming Encounters Date Type Department Care Team (Late st Contact Info) Description 01/27/2025 7:00 AM CDT Office Visit [facility] Family & Internal Medicine - [place] [address] [place] [address] [place] [address] [place], [place] [phone] 10/22/2025 9:15 AM HISTOLOGY TECHNICIAN Office Visit [facility] [address] Mily Gna MD [place] [address] [place], [place] [phone] documented as of this encounter Goals Goal [...] -SN - OASIS Start of Care Discipline -Fpc Problems Problem Description Start Date Status Goals Interve ntions Wound Management Disciplines: Fpc Skin integrity deficit related to: surgical wound wound. Location/site: abdomen 10/06/2021 Active 1 goal linked to scheduled/document ed intervention 7 goal interventions scheduled/document ed in this visit Collaboration of Care Disciplines: Fpc Collaboration for safe care. 10/06/2021 Active 2 goals linked to scheduled/document ed interventions 7 goal interventions scheduled/document ed in this visit Nutritional concerns Disciplines: Fpc Inadequate/imbala nced nutritional concerns 10/06/2021 Active 1 goal linked to scheduled/document ed intervention 1 goal intervention scheduled/document ed in this visit Pulse Oximetry Disciplines: Fpc Skilled assessment and monitoring of O2 saturations. [...] Completed documented in this encounter Care Teams Diploma Pharmacy Technician Relationship Specialty Start Date End Date Lorie Chan MD PCP - General INTERNAL MEDICINE 01/15/20 02/09/23 Moraima Toledo, GINA [address] [place] [address] Exchange Engineer (Ambulatory) REGISTERED NURSE 09/23/21 documented as of this encounter
--- OUTSIDE RECORDS SUMMARY | 2024-11-02 09:15 | XMS_ITS | Encounter Summary ---
Author Organization [facility] Address [address] [place] [address]. [place], [place] [address] [place] [address] Care Team Providers Care Custom Wood Stair Builder Name Role Phone Lorie Chan MD Primary Care Provider [phone] Moraima Toledo RN Unavailable [phone] Encounter Details Date Type Department Care Team [...] on file Legal Sex Male 9:58 PM AUDIO TAPE LIBRARIAN Gender Identity Not on file Sexual Orientation Not on file COVID-19 Exposure Response Date Recorded In the last month, have you been in contact with someone who was confirmed or suspected to have Coronavirus / COVID-19? No / Unsure 10/15/2021 2:25 PM AUDIO TAPE LIBRARIAN documented as of this encounter Functional Status * RETIRED Are you deaf or do you have serious difficulty hearing Answer Date of Assessment Author Status No 10/02/2021 12:38 PM AUDIO TAPE LIBRARIAN Acti ve * RETIRED Are you blind or do you have serious difficulty seeing, even when wearing glasses? Answer Date of Assessment Author Status No 10/02/2021 12:38 PM AUDIO TAPE LIBRARIAN Acti ve * Do you have serious difficulty walking or climbing stairs? Answer Date of Assessment Author Status No 10/02/2021 12:38 PM AUDIO TAPE LIBRARIAN Annette Jorge R N Active * Do you have difficulty dressing or bathing? Answer Date of Assessment Author Status No 10/02/2021 12:38 PM AUDIO TAPE LIBRARIAN Annette Jorge R N Active * Because of a physical, mental, or emotional condition, do you have difficulty doing errands alone such as visiting a doctor's office or shopping? Answer Date of Assessment Author Status No 10/02/2021 12:38 PM AUDIO TAPE LIBRARIAN Annette Jorge R N Active documented as of this encounter Mental Status * Because of a physical, mental, or emotional condition, do you have serious difficulty concentrating, remembering, or making decisions? Answer Entry Date Author Status No 10/02/2021 12:38 PM AUDIO TAPE LIBRARIAN Annette Jorge R N Active documented in this encounter Plan of Treatment Upcoming Encounters Date Type Department Care Team (Late st Contact Info) Description 01/27/2025 7:00 AM CDT Office Visit [facility] Family & Internal Medicine [facility] [address] [place] [address] [place] [address] [place], [place] [id number] 10/22/2025 9:15 AM AUDIO TAPE LIBRARIAN Office Visit [facility] [address] Mily Gan MD [address] [address] documented as of this encounter Goals Goal [...] on filedocumented in this encounter Care Teams Custom Wood Stair Builder Relationship Specialty Start Date End Date Lorie Chan MD PCP - General INTERNAL MEDICINE 01/15/20 02/09/23 Moraima Toledo, GINA [address] [place] [address] Sorting Livestock Worker (Ambulatory) REGISTERED NURSE 09/23/21 documented as of this encounter
--- OUTSIDE RECORDS SUMMARY | 2024-11-02 09:15 | XMS_ITS | Encounter Summary ---
Author Organization [facility] Address [address] [place] [address]. [place] [address] [place] [address] Care Team Providers Care Farm Instructor Name Role Phone Lorie Chan MD Primary Care Provider [phone] Moraima Toledo RN Unavailable [phone] Reason for Visit * Reason Onset Date Comments Follow Up Call 10/03/2021 Encounter Details Date Type Department Care Team (Late st Contact Info) Description 10/03/2021 Telephone [facility] Med/Surg [address] [place] [address] Mayda Julian, RN Follow Up [...] on file Legal Sex Male 9:58 PM SHACTOR HELPER Gender Identity Not on file Sexual Orientation Not on file COVID-19 Exposure Response Date Recorded In the last month, have you been in contact with someone who was confirmed or suspected to have Coronavirus / COVID-19? No / Unsure 10/01/2021 7:57 AM SHACTOR HELPER documented as of this encounter Functional Status * RETIRED Are you deaf or do you have serious difficulty hearing Answer Date of Assessment Author Status No 10/02/2021 12:38 PM SHACTOR HELPER Acti ve * RETIRED Are you blind or do you have serious difficulty seeing, even when wearing glasses? Answer Date of Assessment Author Status No 10/02/2021 12:38 PM SHACTOR HELPER Acti ve * Do you have serious difficulty walking or climbing stairs? Answer Date of Assessment Author Status No 10/02/2021 12:38 PM SHACTOR HELPER Annette Jorge R N Active * Do you have difficulty dressing or bathing? Answer Date of Assessment Author Status No 10/02/2021 12:38 PM SHACTOR HELPER Annette Jorge R N Active * Because of a physical, mental, or emotional condition, do you have difficulty doing errands alone such as visiting a doctor's office or shopping? Answer Date of Assessment Author Status No 10/02/2021 12:38 PM SHACTOR HELPER Annette Jorge R N Active documented as of this encounter Mental Status * Because of a physical, mental, or emotional condition, do you have serious difficulty concentrating, remembering, or making decisions? Answer Entry Date Author Status No 10/02/2021 12:38 PM SHACTOR HELPER Annette Jorge R N Active documented in this encounter Plan of Treatment Upcoming Encounters Date Type Department Care Team (Late st Contact Info) Description 01/27/2025 7:00 AM CDT Office Visit [facility] Medical [facility] Family & Internal Medicine - [place] [address] [place] [address] Ilir Nelson PA [address] [place] [address] 10/22/2025 9:15 AM SHACTOR HELPER Office Visit [facility] [address] Mily Gan MD [address] [place] [address] documented as of this encounter Goals Goal [...] on filedocumented in this encounter Care Teams Farm Instructor Relationship Specialty Start Date End Date Lorie Chan MD PCP - General INTERNAL MEDICINE 01/15/20 02/09/23 Moraima Toledo, GINA [address] [place] [address] Textile Conservator (Ambulatory) REGISTERED NURSE 09/23/21 documented as of this encounter
--- OUTSIDE RECORDS SUMMARY | 2024-11-02 09:15 | XMS_ITS | Encounter Summary ---
Author Organization [facility] Address [address] [place] [address]. [place], [place] [address] [place] [address] Care Team Providers Care Patient Ombudsperson Name Role Phone Lorie Chan MD Primary Care Provider + [phone] Moraima Toledo RN Unavailable [phone] Encounter Details Date Type Department Care Team [...] on file Legal Sex Male 9:58 PM SET ILLUSTRATOR Gender Identity Not on file Sexual Orientation Not on file COVID-19 Exposure Response Date Recorded In the last month, have you been in contact with someone who was confirmed or suspected to have Coronavirus / COVID-19? No / Unsure 10/11/2021 10:27 AM SET ILLUSTRATOR documented as of this encounter Functional Status * RETIRED Are you deaf or do you have serious difficulty hearing Answer Date of Assessment Author Status No 10/02/2021 12:38 PM SET ILLUSTRATOR Acti ve * RETIRED Are you blind or do you have serious difficulty seeing, even when wearing glasses? Answer Date of Assessment Author Status No 10/02/2021 12:38 PM SET ILLUSTRATOR Acti ve * Do you have serious difficulty walking or climbing stairs? Answer Date of Assessment Author Status No 10/02/2021 12:38 PM SET ILLUSTRATOR Annette Jorge R N Active * Do you have difficulty dressing or bathing? Answer Date of Assessment Author Status No 10/02/2021 12:38 PM SET ILLUSTRATOR Annette Jorge R N Active * Because of a physical, mental, or emotional condition, do you have difficulty doing errands alone such as visiting a doctor's office or shopping? Answer Date of Assessment Author Status No 10/02/2021 12:38 PM SET ILLUSTRATOR Annetet Jorge R N Active documented as of this encounter Mental Status * Because of a physical, mental, or emotional condition, do you have serious difficulty concentrating, remembering, or making decisions? Answer Entry Date Author Status No 10/02/2021 12:38 PM SET ILLUSTRATOR Annette Jorge R N Active documented in this encounter Plan of Treatment Upcoming Encounters Date Type Department Care Team (Late st Contact Info) Description 01/27/2025 7:00 AM CDT Office Visit [facility] Family & Internal Medicine [facility] [address] [place] [address] [place] [address] [place], [place] [id number] 10/22/2025 9:15 AM SET ILLUSTRATOR Office Visit [facility] [address] Mily Gan MD [address] [address] documented as of this encounter Goals Goal [...] on filedocumented in this encounter Care Teams Patient Ombudsperson Relationship Specialty Start Date End Date Lorie Chan MD PCP - General INTERNAL MEDICINE 01/15/20 02/09/23 Moraima Toledo, GINA [address] [place] [address] [address] (Ambulatory) REGISTERED NURSE 09/23/21 documented as of this encounter
--- OUTSIDE RECORDS SUMMARY | 2024-11-02 09:16 | XMS_ITS | Encounter Summary ---
Author Organization [facility] Address [address] [place] [address]. [place], [place] [address] [place] [address] Care Team Providers Care Fire Medic Name Role Phone Lorie Chan MD Primary Care Provider [phone] Moraima Toledo RN Unavailable [phone] Reason for Visit * Reason Comments Colonoscopy [...] file Legal Sex Male 9:58 PM ENERGY PROFESSIONAL Gender Identity Not on file Sexual Orientation Not on file COVID-19 Exposure Response Date Recorded In the last 10 days, have yo u been in contact with someone who was confirmed or suspected to have Coronavirus/COVID-19? No / Unsure 01/11/2022 8:25 AM ENERGY PROFESSIONAL documented as of this encounter Functional Status [...] & Internal Medicine [facility] [address] [place] [address] [place] [address] [place] [address] 10/22/2025 9:15 AM ENERGY PROFESSIONAL [facility] [address] [place] [address] Mily Gan MD [facility] [address] [place] [address] documented as of this encounter Goals Goal Patient Goal Type Associated Problems Recent Progress Patient-Stated? Author Establish Plan for Symptom Monitoring General Jeis Ye RN Monitor - demonstrates appropriate technique [...] (08/13/2021) us Documents Scanned SCANNING Final Result [facility] ON[facility] documented in this encounter Visit Diagnoses Not on filedocumented in this encounter Care Teams Fire Medic Relationship Specialty Start Date End Date Lorie Chan MD PCP - General INTERNAL MEDICINE 01/15/20 02/09/23 Moraima Toledo RN [address] [place] [address] Brand Analyst (Ambulatory) REGISTERED NURSE 09/23/21 documented as of this encounter
--- OUTSIDE RECORDS SUMMARY | 2024-11-02 09:16 | XMS_ITS | Encounter Summary ---
Author Organization [facility] Address [address] [place] [address]. [place], [place] [address] [place] [address] Care Team Providers Care Stamper Blocker Name Role Phone Lorie Chan MD Primary Care Provider [phone] Encounter Details Date Type Department Care Team [...] on file Legal Sex Male 9:58 PM ROOF PAINTER Gender Identity Not on file Sexual Orientation [...] [facility] Family [facility] Internal Medicine [facility] [address] [place] [address] [place] [address] [place] [address] 10/22/2025 9:15 AM ROOF PAINTER Office Visit [facility] [address] Mily Gan MD [address] [address] documented as of this encounter Goals Goal Patient Goal Type Associated Problems Recent Progress Patient-Stated? Author Establish Plan for Symptom Monitoring General No Jesi Mixon i, RN Monitor - demonstrates appropriate technique of care of indwelling urinary catheter and new ostomy General No Jesi Cochran RN documented as of this encounter Visit Diagnoses Not on filedocumented in this encounter Care Teams Stamper Blocker Relationship Specialty Start Date End Date Lorie Chan MD PCP - General INTERNAL MEDICINE 01/15/20 02/09/23 documented as of this encounter
--- OUTSIDE RECORDS SUMMARY | 2024-11-02 09:16 | XMS_ITS | Encounter Summary ---
Author Organization [facility] Address [address] [place] [address]. [place], [place] [address] [place] [address] Care Team Providers Care Oil Producer Name Role Phone Lorie Chan MD Primary Care Provider [phone] Reason for Visit * Auth/Cert Specialty Diagnoses / Procedures Referred By Shelby jama Referred To Contact Diagnoses status post mehul Procedures colonoscopy via rectum and ostomy Referral ID Status Reason Start Date Expiration Date Visits Re quested Visits Authorized [id number] 1 1 Encounter Details Date Type Department Care Team (Late st Contact Info) Description 08/13/2021 9:14 AM CDT Anesthesia Event [facility] [address] [place] [address] Natan Paul CRNA [address] [place] [address] Bharti Juarez CRNA [address]22 [place] [address] Anesthesia Record Procedure Summary Procedure Name Responsible Anesthesiologist Anesthesia Start Time Anesthesia Stop Time colonoscopy via rectum and ostomy with polypectomy and biopsy (Colon) Natan Paul CRNA 08/13/21 0914 08/13/21 1000 Events Date Time Event Comment 08/13/2021 0831 0831 AN Anesthesia Prepped 0831 AN RING ROLLING MACHINE OPERATOR Prepped 0914 An Start Patient ID and [...] file 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 Author Establish Plan for Symptom Monitoring General No Jesi Mixon i, RN Monitor - demonstrates appropriate technique of care of indwelling urinary catheter and new ostomy General No eJsi Cochran, RN documented as of this encounter [...] mg documented in this encounter Care Teams Oil Producer Relationship Specialty Start Date End Date Lorie Chan MD PCP - General INTERNAL MEDICINE 01/15/20 02/09/23 documented as of this encounter
--- OUTSIDE RECORDS SUMMARY | 2024-11-02 09:16 | XMS_ITS | Encounter Summary ---
Author Organization [facility] Address [address] [place] [address]. 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 Author Establish Plan for Symptom Monitoring General Jesi Lagunas i, RN Monitor - demonstrates appropriate technique of care of indwelling urinary catheter and new ostomy General No Jesi Cochran RN documented as of this encounter Visit Diagnoses Not on filedocumented in this encounter Care Teams Property Field Adjuster Relationship Specialty Start Date End Date Lorie Chan MD PCP - General INTERNAL MEDICINE 01/15/20 02/09/23 documented as of this encounter
--- OUTSIDE RECORDS SUMMARY | 2024-11-02 09:16 | XMS_ITS | Encounter Summary ---
Author Organization [facility] Address [address] [place] [address]. [place] [address] [place] [address] Care Team Providers Care Pensions Retirement Plan Specialist Name Role Phone Jeremy Castanon MD Primary Care Provider [phone] Reason for Visit * Reason Comments Follow Up status post neel procedure/ (03/23/2021) * Consultation (Routine) - Closed Specialty Diagnoses / Procedures Referred By Shelby jama Referred To Contact SURGERY Diagnoses 3 month follow up (also to discuss colonoscopy) Procedures FOLLOW UP Federico Amador MD [address] [place] [address] Phone: tel: fax: Federico Amador MD [address] [place] [address] Phone: tel: fax: Referral ID Status Reason Start Date Expiration Date Visits Re quested Visits Authorized [id number] Closed 07/23/2021 3 3 Encounter Details Date Type Department Care Team (Late st Contact Info) Description 07/23/2021 1:00 PM CDT Office Visit [facility] Medical Group General Surgery [address], [address] [place] [address] Federico Amador MD [address] [place] [address] Follow Up (status post neel [...] on file Legal 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 HERNIA REPAIR Right [facility] ??? HERNIA REPAIR Left [facility] ??? NECK/CHEST PROCEDURE UNLISTED Right [facility], re-built right side of neck. ??? SMALL INTESTINE SURGERY bowel rupture ??? TOTAL KNEE ARTHROPLASTY Bilateral ZANA Partial KR, done @ [facility] Social History Tobacco Use ??? Smoking [...] kg/m??. Diagnoses/Impression: 1. Status post Neel procedure ([facility]) Recommendations and Plan: Natan Patel 66-year-old male [...] & Internal Medicine [facility] [address] [place] [address] [place] [address] [place], [place] [phone] 10/22/2025 9:15 AM NEUROLOGY SPECIALIST Office Visit [facility] [address] Mily Gan MD [address] [address] documented as of this encounter Goals Goal Patient Goal Type Associated Problems Recent Progress Patient-Stated? Author Establish Plan for Symptom Monitoring General No Jesi Mixon i RN Monitor - demonstrates appropriate technique of care of indwelling urinary catheter and new ostomy General No Jesi Cochran, RN documented as of this encounter Visit Diagnoses Diagnosis Status post Neel procedure ([facility]/H[facility])- Primary documented in this encounter Care Teams Pensions Retirement Plan Specialist Relationship Specialty Start Date End Date Jeremy Castanon MD PCP - General INTERNAL MEDICINE 01/15/20 02/09/23 documented as of this encounter
--- OUTSIDE RECORDS SUMMARY | 2024-11-02 09:16 | XMS_ITS | Encounter Summary ---
Author Organization [facility] Address [address] [place] [address]. [place] [address] [place] [address] Care Team Providers Care Job Compositor Name Role Phone Lorie Castanon MD Primary Care Provider [phone] Reason for Visit * Reason Comments Postop Followup COLONOSCOPY(08/13/20) * Consultation (Routine) - Closed Specialty Diagnoses / Procedures Referred By Shelby jama Referred To Contact SURGERY Diagnoses 3 month follow up (also to discuss colonoscopy) Procedures FOLLOW UP Margarita Sloan MD [address] [facility] [address] [place] [address] Phone: tel: fax: Margarita Sloan MD [address] [facility] [address] [place] [address] Phone: tel: fax: Referral ID Status Reason Start Date Expiration Date Visits Re quested Visits Authorized [id number] Closed 07/23/2021 3 3 Encounter Details Date Type Department Care Team (Late st Contact Info) Description 08/20/2021 4:00 PM CDT Office Visit [facility] Medical Group General Surgery [address], [address] [place] [address] Margarita Sloan MD [address] [place] [address] Postop Followup (COLONOSCOPY(08/13/20 21)) Social [...] on file Legal Sex Male 9:58 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 COLOSTOMY reversable ??? HERNIA REPAIR Right [facility] ??? HERNIA REPAIR Left [facility] ??? NECK/CHEST PROCEDURE UNLISTED Right [facility], re-built right side of neck. ??? SMALL INTESTINE SURGERY bowel rupture ??? TOTAL KNEE ARTHROPLASTY Bilateral ZANA Partial KR, done @ [facility] Social History Tobacco Use ??? [...] 25.22 kg/m??. Diagnoses/Impression: 1. Colostomy in place ([facility]) Recommendations and Plan: Natan Patel is [...] [facility] Family & Internal Medicine [address] [address] Ilir Nelson PA [address] [place] [phone] 10/22/2025 9:15 AM GALLERY OR MUSEUM GUIDE Office Visit [facility] [address] Mily Gan MD [address] [phone] documented as of this encounter Goals Goal Patient Goal Type Associated Problems Recent Progress Patient-Stated? Author Establish Plan for Symptom Monitoring General Jesi Lagunas i, RN Monitor - demonstrates appropriate technique of care of indwelling urinary catheter and new ostomy General Jesi Ye, RN documented as of this encounter Visit Diagnoses Diagnosis Colostomy in place (CMS/H[facility])- Primary Colostomy status documented in this encounter Care Teams Job Compositor Relationship Specialty Start Date End Date Lorie Castanon MD PCP - General INTERNAL MEDICINE 01/15/20 02/09/23 documented as of this encounter
--- OUTSIDE RECORDS SUMMARY | 2024-11-02 09:16 | XMS_ITS | Encounter Summary ---
Author Organization [facility] Address [address] [place] [address]. [place] [address] [place] [address] Care Team Providers Care Health And Physical Education Teacher Name Role Phone Lorie Chan MD Primary Care Provider [phone] Reason for Visit * Reason Onset Date Comments Insurance Coverage 08/10/2021 Encounter Details Date Type Department Care Team (Late st Contact Info) Description 08/10/2021 Telephone [facility] Medical [facility] General Surgery - [place] [address] [facility], [address] [place] [address] Federico Mayer MD [address] [facility] [address] [place] [address] Insurance Coverage Social History Tobacco Use Types [...] on file 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 Author Establish Plan for Symptom Monitoring General No Jesi Mixon i RN Monitor - demonstrates appropriate technique of care of indwelling urinary catheter and new ostomy General No Jesi Cochran RN documented as of this encounter Visit Diagnoses Not on filedocumented in this encounter Care Teams Health And Physical Education Teacher Relationship Specialty Start Date End Date Lorie Chan MD PCP - General INTERNAL MEDICINE 01/15/20 02/09/23 documented as of this encounter
--- OUTSIDE RECORDS SUMMARY | 2024-11-02 09:16 | XMS_ITS | Encounter Summary ---
Author Organization [facility] Address [address] [place] [address]. 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 Author Establish Plan for Symptom Monitoring General Jesi Lagunas i, RN Monitor - demonstrates appropriate technique of care of indwelling urinary catheter and new ostomy General Jesi Ye, RN documented as of this encounter Visit Diagnoses Diagnosis Status post Neel procedure ([facility])- Primary documented in this encounter Care Teams Electrical Installation Inspector Relationship Specialty Start Date End Date Lorie Chan MD PCP - General INTERNAL MEDICINE 01/15/20 02/09/23 documented as of this encounter
--- OUTSIDE RECORDS SUMMARY | 2024-11-02 09:16 | XMS_ITS | Encounter Summary ---
Author Organization [facility] Address [address] [place] [address]. 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 [address] [place] [address] [place] [address] [place], [place] [phone] 10/22/2025 9:15 AM CORPORATE PARALEGAL Office Visit [facility] [address] Mily Gan MD [facility] [address] [place] [address] documented as of this encounter Goals Goal Patient Goal Type Associated Problems Recent Progress Patient-Stated? Author Establish Plan for Symptom Monitoring General Jesi Lagunas i, RN Monitor - demonstrates appropriate technique of care of indwelling urinary catheter and new ostomy General Jesi Ye RN documented as of this encounter Visit Diagnoses Not on filedocumented in this encounter Care Teams Landfill Attendant Relationship Specialty Start Date End Date Lorie Chan MD PCP - General INTERNAL MEDICINE 01/15/20 02/09/23 documented as of this encounter
--- OUTSIDE RECORDS SUMMARY | 2024-11-02 09:16 | XMS_ITS | Encounter Summary ---
Author Organization [facility] Address [address] [place] [address]. [place] [address] [place] [address] Care Team Providers Care Boot And Saddle Repair Person Name Role Phone Jeremy Castanon MD Primary Care Provider [phone] Reason for Visit * Auth/Cert Specialty Diagnoses / Procedures Referred By Shelby jama Referred To Contact Diagnoses status post neel Procedures colonoscopy via rectum and ostomy Referral ID Status Reason Start Date Expiration Date Visits Re quested Visits Authorized [id number] 1 1 Encounter Details Date Type Department Care Team (Latest Contact Info) Description 08/13/2021 8:20 AM CDT - 08/13/2021 10:47 AM CDT Hospital Encounter [facility] [address] [place] [address] Margarita Sloan MD 2415 [facility] [address] [place] [address] Discharge Disposition: Home or Self Care (Routine [...] on file Legal Sex Male 9:58 PM YARD ASSISTANT Gender Identity Not on file Sexual [...] through Care Everywhere. * Colonoscopy Discharge Instructions (Finnish) * Moderate Sedation in Adults Discharge Instructions (Finnish) documented in this encounter Medications at Time [...] 17.5-3.13-1.6 GM/177ML SolutionIndications :Status post Neel procedure ([facility]) Take 177 mLs by mouth every 12 [...] during recuperation were discussed with the patient/family/personal sales representative. Reasonable alternatives to the patient's proposed procedure/surgery including benefits, risks, and side effects related to the alternatives and the risks related to not receiving the proposed care were also discussed with the patient/family/personal sales representative. Questions were answered and the patient/family/personal sales representative verbalized understanding and desires to proceed. Source Note - Margarita Sloan MD - 07/23/2021 1:00 PM CDT Reason for Visit: Follow Up (status post neel procedure/ (03/23/2021)) History of Present Illness: Mandie Cotetr is a 66-year-old male status post Hudson's [...] ??? COLOSTOMY reversable ??? HERNIA REPAIR Right [facility] ??? HERNIA REPAIR Left [facility] ??? NECK/CHEST PROCEDURE UNLISTED Right [facility], re-built right side of neck. ??? SMALL INTESTINE SURGERY bowel rupture ??? TOTAL KNEE ARTHROPLASTY Bilateral ZANA Partial KR, done @ [facility] Social History Tobacco Use ??? Smoking status: [...] 1. Status post Neel procedure ([facility]) Recommendations and Plan: Mandie Cotter 66-year-old male [...] name: Mandie Cotter Date of : 1955 [place] Time out Complete: Yes Consent Obtained: Yes Surgeon: Margarita Sloan MD Supervisor Research Shop: Circulating Nurse 1: Cyn Burleson RN Scrub Person 1: Heather Nicole RN Anesthesia Present: Yes Type of Anesthesia: Monitored Anesthesia Care Mechanical Ventilation: No Medication Used: Refer to anesthesia notes Pre-Procedure Diagnosis: Colon cancer screening Post Procedure Diagnosis: Hyperplastic appearing rectal polyps, mild proctitis Date of Last Colonoscopy: Over 10 years ago Colonoscopy: Complete colonoscopy through stoma and rectum Quality of prep: Excellent [place] bowel prep score 9 Procedure Device: Fiber-optic [...] [facility] Family [facility] Internal Medicine [facility] [address] [place] [address] [place] [address] [place] [phone] 10/22/2025 9:15 AM YARD ASSISTANT Office Visit [facility] [address] Mily Gan MD [address] [phone] documented as of this encounter Goals Goal [...] * Pathology (08/13/2021 12:00 AM CDT) PATHOLOGY [facility] ? Department of Laboratory Medicine ?[address] [facility] ?[place] [address] ? , extension [phone] ? Pathology Report ? Surgical Pathology Report Name: MANDIE COTTER ? Specimen #: [id number] Age: 9 1955 (Age: 66) ?Location: [facility] Sex: M ?Procedure Date: 08/13/2021 Hospital #: [id number] ?Date Received: 08/16/2021 Date Reported: 08/17/2021 Provider: [...] Electronically Signed Out ? Paulo Melton M.D. [facility] Tissue specimen (specimen) COLON STRUCTURE / Unknown 08/13/2021 9:50 AM CDT Tissue specimen (specimen) COLON STRUCTURE / Unknown 08/13/2021 9:52 AM CDT Tissue specimen (specimen) COLON STRUCTURE / Unknown 08/13/2021 9:53 AM CDT us Margarita Sloan MD PATHOLOGY/CYTOLOGY ORDERABLE S Final Result [facility] [address] [place] [address], [id number] documented in this encounter Visit Diagnoses Not [...] CRNA)1033 (Infusion Stop Time - Provider: Cindy Farha RN) documented in this encounter Care Teams Boot And Saddle Repair Person Relationship Specialty Start Date End Date Jeremy Castanon MD PCP - General INTERNAL MEDICINE 01/15/20 02/09/23 documented as of this encounter
--- OUTSIDE RECORDS SUMMARY | 2024-11-02 09:16 | XMS_ITS | Encounter Summary ---
Author Organization [facility] Address [address] [place] [address]. [place], [place] [address] [place] [address] Care Team Providers Care Central Supply Worker Name Role Phone Lorie Chan MD Primary Care Provider Reason for Referral * Surgical (Routine) - Closed Specialty Diagnoses / Procedures Referred By Shelby jama Referred To Contact SURGERY Diagnoses Colostomy status ([facility]) Colostomy Procedures Case request operating room: colonoscopy via rectum and ostomy [address] colonoscopy Margarita Sloan MD [address] [facility] [address] [place] [address] Phone: tel: fax: [facility] General Surgery [address], [address] [address] Phone: tel: fax: Referral ID Status Reason Start Date Expiration Date Visits Re quested Visits Authorized [id number] Closed 07/26/2021 08/25/2022 1 1 Encounter Details Date Type Department Care Team (Late st Contact Info) Description 07/26/2021 Prep for Procedure [address], [address] [place] [address] Margarita Sloan MD 0435 [facility] [address] [place] [address] Social History Tobacco Use Types Packs/Day Years [...] on file 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)- Primary documented in this encounter Care Teams Central Supply Worker Relationship Specialty Start Date End Date Lorie Chan MD PCP - General INTERNAL MEDICINE 01/15/20 02/09/23 documented as of this encounter
--- OUTSIDE RECORDS SUMMARY | 2024-11-02 09:16 | XMS_ITS | Encounter Summary ---
Author Organization [facility] Address [address] [place] [address]. 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 Author Establish Plan for Symptom Monitoring General Jesi Lagunas i, RN Monitor - demonstrates appropriate technique of care of indwelling urinary catheter and new ostomy General No Jesi Cochran RN documented as of this encounter Visit Diagnoses Not on filedocumented in this encounter Care Teams Tool And Die Maker Relationship Specialty Start Date End Date Lorie Chan MD PCP - General INTERNAL MEDICINE 01/15/20 02/09/23 documented as of this encounter
--- OUTSIDE RECORDS SUMMARY | 2024-11-02 09:16 | XMS_ITS | Encounter Summary ---
Author Organization [facility] Address [address] [place] [address]. [place] [address] [place] [address] Care Team Providers Care Single Needle Tufting Machine Operator Name Role Phone Lorie Chan MD Primary Care Provider [phone] Reason for Visit * Auth/Cert Specialty Diagnoses / Procedures Referred By Shelby jama Referred To Contact Diagnoses colostomy in place Procedures CLOSE ENTEROSTOMY CYSTOSCOPY,INSERT URETERAL STENT LAPAROSCOPIC POSSIBLE OPEN HARTMANS REVERSAL, POSSIBLE BOWEL RESECTION Ureteral Stent Placement Referral ID Status Reason Start Date Expiration Date Visits Re quested Visits Authorized [id number] 1 1 Encounter Details Date Type Department Care Team (Late st Contact Info) Description 09/22/2021 8:51 AM WIRING TECHNICIAN Anesthesia Event [facility] [address] [place] [address] Natan Paul CRNA 74[address] [place] [address] Meredith Villagran CRNA [address] [place] [address] Anesthesia Record Procedure Summary Procedure Name Responsible Anesthesiologist Anesthesia Start Time Anesthesia Stop Time LAPAROSCOPIC HARTMANS REVERSAL (Abdomen) Natan Paul CRNA 09/22/21 0851 09/22/21 1443 Events Date Time Event Comment 09/22/2021 0713 0713 AN BARREL RAISER HELPER Prepped 0713 AN Anesthesia Prepped 0851 An [...] Auscultation, Chest Rise; Placed By: Other (Comment), BARREL RAISER HELPER (SRNA); Removal Date: 09/22/21; Removal Time: 1435 09/22/21 0856 by Natan Paul CRNA 09/22/21 1435 by Natan Paul CRNA NG/OG Tube Placement Date: 09/22/21; Placement Time: 0858; Inserted By: wire drawing machine operator; Tube Type: Orogastric; Tube Size: 16 Fr.; Tube Location: Oral; Removal Date: 09/22/21; Removal Time: 141; Removal Reason: End of Case 09/22/21 0858 by Natan Paul CRNA 09/22/21 1418 by Natan Paul CRNA Osborne Catheter 09/22/21; 0911; Urol ogic Surgical intervention - Bladder, Prostate, ADHESION TESTER procedures; 1; Hand hygiene performed, Site cleansed [...] on file Legal Sex Male 9:58 PM WIRING TECHNICIAN Gender Identity Not on file Sexual [...] or making decisions? No 10/02/2021 12:38 PM WIRING TECHNICIAN Annette Jorge RN Active * Because of [...] were no known complications for this encounter. NG TECHNICIAN * Anesthesia Procedure Notes - Natan Paul CRNA - 09/22/2021 10:42 AM WIRING TECHNICIAN Associated Order(s): Peripheral Block Peripheral Nerve Block [...] Additional Notes See anesthesia record for medication NG TECHNICIAN * Anesthesia Preprocedure Evaluation - Natan Paul [...] Federico Mayer MD at 12/06/2021 2:47 PM WIRING TECHNICIAN NG TECHNICIAN NG TECHNICIAN Associated attestation - Federico Mayer MD - 12/06/2021 2:47 PM WIRING TECHNICIAN I am certifying my agreement with the anesthesia plan of care and will be supervising the administration of anesthesia. documented in this encounter Plan of Treatment Upcoming Encounters Date Type Department Care Team (Late st Contact Info) Description 01/27/2025 7:00 AM CDT Office Visit [facility] Family & Internal Medicine - [place] [address] [place] [address] [place] [address] [place] [address] 10/22/2025 9:15 AM WIRING TECHNICIAN Office Visit [facility] [address] Mily Gan MD [address] [address] documented as of this encounter [...] Procedure Name Priority Date/Time Associated Diagnosis Comments SD AN PERIPHERAL BLOCK SINGLE-SHOT Routine 09/22/2021 10:42 AM WIRING TECHNICIAN documented in this encounter Results * SD AN PERIPHERAL BLOCK SINGLE-SHOT (09/22/2021 10:42 AM WIRING TECHNICIAN) Narrative Natan Paul CRNA - 09/22/2021 10:42 AM WIRING TECHNICIAN Natan Paul CRNA ? 09/22/2021 10:49 AM [...] record for medication us Federico Mayer MD SD ANESTHESIA Final Result documented in this encounter Visit Diagnoses Not on filedocumented in this encounter Administered Medications Inactive Administered Medications - up to 3 most recent administrations Medication Order MAR Action Action Date Dose Rate Site cloNIDine (DURACLON) injection Regional, PRN, Starting on Mon09/22/21 at 0845, Until Mon09/22/21 at 1443, Anesthesia Intra-Op Given 09/22/2021 8:45 AM WIRING TECHNICIAN 60 mcg ePHEDrine injection Intravenous, PRN, Starting on Mon09/22/21 at 1021, Until Mon09/22/21 at 1443, Anesthesia Intra-Op Given 09/22/2021 11:14 AM WIRING TECHNICIAN 5 mg Given 09/22/2021 10:21 AM WIRING TECHNICIAN 5 mg fentaNYL (SUBLIMAZE) injection Intravenous, PRN, Starting on Mon09/22/21 at 0852, Until Mon09/22/21 at 1443, Anesthesia Intra-Op Given 09/22/2021 9:06 AM WIRING TECHNICIAN 50 mcg Given 09/22/2021 8:52 AM WIRING TECHNICIAN 50 mcg lactated ringers infusion at 100 mL/hr, Intravenous, Continuous, Starting on Mon09/22/21 at 0630, Until Mon09/22/21 at 1613, Pre-OpIndications:Colostomy in place ([facility]) New Bag 09/22/2021 10:58 AM WIRING TECHNICIAN New Bag 09/22/2021 9:30 AM WIRING TECHNICIAN Restarted 09/22/2021 9:03 AM WIRING TECHNICIAN lidocaine (PF) (XYLOCAINE) 1 % injection Intravenous, PRN, Starting on Mon09/22/21 at 0856, Until Mon09/22/21 at 1443, Anesthesia Intra-Op Given 09/22/2021 8:56 AM WIRING TECHNICIAN 20 mg midazolam (VERSED) injection Intravenous, PRN, Starting on Mon09/22/21 at 0806, Until Mon09/22/21 at 1443, Anesthesia Intra-Op Given 09/22/2021 8:06 AM WIRING TECHNICIAN 2 mg ondansetron (ZOFRAN) injection Intravenous, PRN, Starting on Mon09/22/21 at 1406, Until Mon09/22/21 at 1443, Anesthesia Intra-Op Given 09/22/2021 2:06 PM WIRING TECHNICIAN 4 mg phenylephrine (LORNA-SYNEPHRINE) injection Intravenous, PRN, Starting on Mon09/22/21 at 0923, Until Mon09/22/21 at 1443, Anesthesia Intra-Op Given 09/22/2021 10:01 AM WIRING TECHNICIAN 100 mcg Given 09/22/2021 9:53 AM WIRING TECHNICIAN 100 mcg Given 09/22/2021 9:40 AM WIRING TECHNICIAN 100 mcg propofol (DIPRIVAN) IV bolus Intravenous, PRN, Starting on Mon09/22/21 at 0856, Until Mon09/22/21 at 1443, Anesthesia Intra-Op Given 09/22/2021 8:56 AM WIRING TECHNICIAN 160 mg rocuronium (ZEMURON) injection Intravenous, PRN, Starting on Mon09/22/21 at 0856, Until Mon09/22/21 at 1443, Anesthesia Intra-Op Given 09/22/2021 12:26 PM WIRING TECHNICIAN 10 mg Given 09/22/2021 10:48 AM WIRING TECHNICIAN 20 mg Given 09/22/2021 8:56 AM WIRING TECHNICIAN 50 mg ropivacaine (NAROPIN) injection Infiltration, PRN, Starting on Mon09/22/21 at 0845, Until Mon09/22/21 at 1443, Anesthesia Intra-Op Given 09/22/2021 8:45 AM WIRING TECHNICIAN 40 mLs sugammadex (BRIDION) injection Intravenous, PRN, Starting on Mon09/22/21 at 1416, Until Mon09/22/21 at 1443, Anesthesia Intra-Op Given 09/22/2021 2:16 PM WIRING TECHNICIAN 150 mg documented in this encounter Care Teams Single Needle Tufting Machine Operator Relationship Specialty Start Date End Date Lorie Chan MD PCP - General INTERNAL MEDICINE 01/15/20 02/09/23 documented as of this encounter
--- OUTSIDE RECORDS SUMMARY | 2024-11-02 09:16 | XMS_ITS | Encounter Summary ---
Author Organization [facility] Address [address] [place] [address]. [place], [place] [address] [place] [address] Care Team Providers Care Gas Plant Repairer Name Role Phone Lorie Chan MD Primary Care Provider [phone] Moraima Toledo RN Unavailable [phone] Encounter Details Date Type Department Care Team [...] Legal Sex Male 9:58 PM FULL STACK ENGINEER Gender Identity Not on file Sexual Orientation Not on file COVID-19 Exposure Response Date Recorded In the last month, have you been in contact with someone who was confirmed or suspected to have Coronavirus / COVID-19? No / Unsure 10/01/2021 7:57 AM FULL STACK ENGINEER documented as of this encounter Functional Status * RETIRED Are you deaf or do you have serious difficulty hearing Answer Date of Assessment Author Status No 09/22/2021 7:58 PM FULL STACK ENGINEER Activ e * RETIRED Are you blind or do you have serious difficulty seeing, even when wearing glasses? Answer Date of Assessment Author Status No 09/22/2021 7:58 PM FULL STACK ENGINEER Activ e * Do you have serious difficulty walking or climbing stairs? Answer Date of Assessment Author Status No 09/22/2021 7:58 PM FULL STACK ENGINEER Nancy Perez R N Active * Do you have difficulty dressing or bathing? Answer Date of Assessment Author Status No 09/22/2021 7:58 PM FULL STACK ENGINEER Nancy Perez R N Active * Because of a physical, mental, or emotional condition, do you have difficulty doing errands alone such as visiting a doctor's office or shopping? Answer Date of Assessment Author Status No 09/22/2021 7:58 PM FULL STACK ENGINEER Nancy Perez R N Active documented as [...] Group Family & Internal Medicine [facility] [address] [place] [address] [place] [address] [place], [place] [phone] 10/22/2025 9:15 AM FULL STACK ENGINEER Office Visit [facility] [address] Mily Gan MD [address] [address] documented as of this encounter Goals Goal [...] filedocumented in this encounter Care Teams Gas Plant Repairer Relationship Specialty Start Date End Date Lorie Chan MD PCP - General INTERNAL MEDICINE 01/15/20 02/09/23 Moraima Toledo RN [address] [place] [phone] Sales Compensation Analyst (Ambulatory) REGISTERED NURSE 09/23/21 documented as of this encounter
--- OUTSIDE RECORDS SUMMARY | 2024-11-02 09:16 | XMS_ITS | Encounter Summary ---
Author Organization [facility] Address [address] [place] [address]. [place] [address] [place] [address] Care Team Providers Care Power Tool Repairer Name Role Phone Lorie Chan MD Primary Care Provider [phone] Reason for Referral * Surgical (Routine) - Closed Specialty Diagnoses / Procedures Referred By Shelby jama Referred To Contact SURGERY Diagnoses [facility]) Neel reversal Procedures Case request operating room: reversal of Neel's(laparoscopic) [address] Reversal of Neel's procedure Margarita Sloan MD [address] [address] Phone: tel: fax: [facility] [address], [address] [place] [address] Phone: tel: fax: Referral ID Status Reason Start Date Expiration Date Visits Re quested Visits Authorized [id number] Closed 08/23/2021 09/23/2022 1 1 Encounter Details Date Type Department Care Team (Late st Contact Info) Description 08/23/2021 Prep for Procedure [facility] [address], [address] [place] [address] Margarita Sloan MD [address] [place] [address] Social History Tobacco Use Types Packs/Day Years [...] on file Legal Sex Male 9:58 PM DYE HOUSE WORKER Gender Identity Not on file Sexual [...] Family & Internal Medicine [facility] [address] [place] [address] [place] [address] [place] [phone] 10/22/2025 9:15 AM DYE HOUSE WORKER Office Visit [facility] [address] Mily Gan MD [address] [phone] Scheduled Orders Name Type Priority Associated Diagnoses [...] Visit Diagnoses Diagnosis Colostomy in place (CMS/HCC [facility]/HCC)- Primary Colostomy status documented in this encounter Care Teams Power Tool Repairer Relationship Specialty Start Date End Date Lorie Chan MD PCP - General INTERNAL MEDICINE 01/15/20 02/09/23 documented as of this encounter
--- OUTSIDE RECORDS SUMMARY | 2024-11-02 09:16 | XMS_ITS | Encounter Summary ---
Author Organization [facility] Address [address] [place] [address]. [place], [place] [id number] [place] [id number] Care Team Providers Care Automatic Gluing Machine Operator Name Role Phone Lorie Castanon MD Primary Care Provider [phone] Moraima Toledo RN Unavailable [phone] Reason for Referral * Imaging (Urgent) - Closed Specialty Diagnoses / Procedures Referred By Contac t Referred To Contact RADIOLOGY Procedures USE ECHOCARDIOGRAM Lacey Barkley MD [address] [facility] [address] [address] Phone: tel: fax: Referral ID Status Reason Start Date Expiration Date Visits Re quested Visits Authorized [id number] Closed 09/27/2021 10/27/2022 1 1 TOWER CLIMBER * (Routine) - Closed Specialty Diagnoses / Procedures Referred By Contac t Referred To Contact Procedures PT Eval and Treat Margarita Sloan MD [address] [address] Phone: tel: fax: Referral ID Status Reason Start Date Expiration Date Visits Re quested Visits Authorized [id number] Closed 09/22/2021 10/22/2022 1 1 TOWER CLIMBER * (Routine) - Closed Specialty Diagnoses / Procedures Referred By Shelby jama Referred To Contact Procedures OT eval and treat Margarita Sloan MD [address] [place] [address] Phone: tel: fax: Referral ID Status Reason Start Date Expiration Date Visits Re quested Visits Authorized [id number] Closed 09/22/2021 10/22/2022 1 1 TOWER CLIMBER Reason for Visit * Auth/Cert Specialty Diagnoses / Procedures Referred By Shelby jama Referred To Contact Diagnoses colostomy in place Procedures CLOSE ENTEROSTOMY CYSTOSCOPY,INSERT URETERAL STENT LAPAROSCOPIC POSSIBLE OPEN HARTMANS REVERSAL, POSSIBLE BOWEL RESECTION Ureteral Stent Placement Referral ID Status Reason Start Date Expiration Date Visits Re quested Visits Authorized [id number] 1 1 Encounter Details Date Type Department Care Team (Latest Contact Info) Description 09/22/2021 6:03 AM CELL TOWER CLIMBER - 10/02/2021 2:34 PM CELL TOWER CLIMBER Hospital Encounter [facility] Med/Surg [address] [place] [address] Margarita Sloan MD [address] [facility] [address] [place] [address] Discharge Disposition: Home with Home [...] on file Legal Sex Male 9:58 PM CELL TOWER CLIMBER Gender Identity Not on file Sexual Orientation Not on file COVID-19 Exposure Response Date Recorded In the last month, have you been in contact with someone who was confirmed or suspected to have Coronavirus / COVID-19? No / Unsure 10/01/2021 7:57 AM CELL TOWER CLIMBER documented as of this encounter Last Filed Vital Signs Vital Sign Reading Time Taken Comments Blood Pressure 111/54 10/02/2021 11:51 AM CELL TOWER CLIMBER Pulse 95 10/02/2021 11:51 AM CELL TOWER CLIMBER Temperature 36.2 ??C (97.1 ??F) 10/02/2021 1 1:51 AM CELL TOWER CLIMBER Respiratory Rate 20 10/02/2021 11:5 1 AM CELL TOWER CLIMBER Oxygen Saturation 96% 10/02/2021 11: 51 AM CELL TOWER CLIMBER Inhaled Oxygen Concentration - - Weight 72.9 kg (160 lb 11.5 oz) 10/02/2021 3:00 AM CELL TOWER CLIMBER Height 170.2 cm (5' 7 ) 09/22/2021 4:43 PM CELL TOWER CLIMBER Body Mass Index 25.17 09/22/2021 4:43 PM CELL TOWER CLIMBER documented in this encounter Functional Status * [...] Assessment Author Status No 10/02/2021 12:38 PM CELL TOWER CLIMBER Acti ve * RETIRED Are you blind or do you have serious difficulty seeing, even when wearing glasses? Answer Date of Assessment Author Status No 10/02/2021 12:38 PM CELL TOWER CLIMBER Acti ve * Do you have serious difficulty walking or climbing stairs? Answer Date of Assessment Author Status No 10/02/2021 12:38 PM CELL TOWER CLIMBER Annette Jorge R N Active * Do you have difficulty dressing or bathing? Answer Date of Assessment Author Status No 10/02/2021 12:38 PM CELL TOWER CLIMBER Annette Jorge R N Active * Because of a physical, mental, or emotional condition, do you have difficulty doing errands alone such as visiting a doctor's office or shopping? Answer Date of Assessment Author Status No 10/02/2021 12:38 PM CELL TOWER CLIMBER Annette Jorge R N Active documented as of this encounter Mental Status * Question Answer Entry Date Author Status Because of a physical, mental, or emotional condition, do you have serious difficulty concentrating, remembering, or making decisions? No 10/02/2021 12:38 PM CELL TOWER CLIMBER Annette Jorge RN Active * Because of a physical, mental, or emotional condition, do you have serious difficulty concentrating, remembering, or making decisions? Answer Entry Date Author Status No 10/02/2021 12:38 PM CELL TOWER CLIMBER Annette Jorge R N Active documented in this encounter Discharge Summaries * Aneesh Mesa MD - 10/02/2021 9:24 AM CST Hospitalist Discharge Summary Patient ID: Mandie Cotter. male. 1955. [id number] Hospital Course: 66-year-old male presented with POD [...] during hospitalization. All plans discussed with patient/patient's family/exercise physiology professor. They are agreeable with plan and voiced understanding. ?? This note was dictated with [email or web address] medical dictation software; misspellings, punctuation errors, omitted [...] No results for input(s): PH, PCO2, PO2, [id number], BICARBWB, BASEDEFICIT, BASEEXCESS in the [id number] hours. Results for orders placed or performed during the hospital encounter of 03/18/21 URINALYSIS, AUTO, COMPLETE Result Value Ref Range COLOR (U) YELLOW TRANSPARENCY HAZY Specific [place] (U) 1.015 1.000 - 1.030 U PH [...] Your Medications These medications were sent to [id number] - [place], [place] - [address] [place] [address] [place], [place] [address] ?? amLODIPine 5 MG tablet ?? metoprolol [...] ANEESH MESA MD 10/02/2021 12:38 PM Inpatient TOWER CLIMBER TOWER CLIMBER documented in this encounter Discharge Instructions * Discharge Instructions* Annette Jorge RN - 10/02/2021 12:39 PM CELL TOWER CLIMBER Patient Education Ostomy Reversal Why is this [...] Be sure to include all prescription and gohc-xrj-mjhxjgb (OTC) drugs, and herbal supplements. Tell the [...] right for you. Copyright Copyright ?? 2020 [employer] and its affiliates and/or licensors. All rights reserved. Wound vac ordered through [employer]. [phone]. [facility] Home Health to follow . [phone] TOWER CLIMBER * Additional Instructions* Annette Jorge RN - 10/02/2021 2:08 PM CELL TOWER CLIMBER Change wound vac drsg q Monday, , Saturdays TOWER CLIMBER documented in this encounter Medications at Time [...] this encounter Progress Notes * MICHAEL Lovett Lithopone Charger - 10/02/2021 2:34 PM CST Anesthesia Record Closure: As a Chart Correction Lithopone Charger, I closed the Anesthesia Record due to ageof the record. All required documentation was previously completed and signed by STRUCTURAL FITTER. * Annette Jorge RN - 10/02/2021 1:12 [...] of wound healing Outcome: Adequate for Discharge TOWER CLIMBER * Tiffani Moreno MD - 10/02/2021 12:32 [...] drain F/u Dr Sloan next week GABRIELLE TOWER CLIMBER * Evie Antony RN - 10/01/2021 3:35 PM CST INTERDISCIPLINARY CARE CONFERENCE: TEAM ATTENDANCE: CASE MANAGEMENT, UR, NURSING, PT, OT, CARDIOPULMONARY, CHANGE CONTROL ANALYST, HOSPITALIST HOME HEALTH,PASTORAL CARE, PHARMACY Meeting held at 1100. NG removes. Full Liquid diet. 1400 wound vac ordered through [employer]. Patient picked [facility] to follow stated has used in the past . Referral sent. TOWER CLIMBER * Aneesh Mesa MD - 10/01/2021 1:16 [...] normal. Lung bases are clear, within the ejjkl-lp-jbst. ABDOMEN: 1. No free air below the [...] normal. Lung bases are clear, within the kjras-fi-pqmb. ABDOMEN: 1. No free air below the [...] bowel noted at the margin of the xdjct-qd-rpds Ordered By: MARGARITA SLOAN Interpreted By: Moncho Cheng, 09/24/2021 3:23 PM Results for orders placed or performed during the hospital encounter of 09/22/21 ECG 12 lead Narrative [facility] Test Date: 2021-09-24 Pat Name: MANDIE COTTER Department: Room: 109 Gender: Male Head Of Digital: : 1955 Requested By: PORSCHE LORD Order Number: [id number] Reading MD: Toño Lovett Measurements Intervals Groves Rate: 93 P: 30 AK: 136 QRS: 13 QRSD: 98 T: 53 QT: 353 QTc: 439 Interpretive Statements SINUS RHYTHM Compared to ECG 03/18/2021 10:08:00 T-wave abnormality no longer present TOWER CLIMBER ECG 12 lead Narrative [facility] Test Date: 2021-09-26 Pat Name: MANDIE COTTER Department: Room: 1091 Gender: Male Head Of Digital: : 1955 Requested By: LACEY BARKLEY Order Number: [id number] Reading MD: Toño Lovett Measurements Intervals Groves Rate: 127 P: AK: 0 QRS: 9 QRSD: 91 T: 32 QT: 306 QTc: 445 Interpretive Statements ATRIAL FIBRILLATION WITH RAPID VENTRICULAR RESPONSE WITH ABERRANT CONDUCTION OR VENTRICULAR PREMATURE COMPLEXES NONSPECIFIC ST & T-WAVE ABNORMALITY ABNORMAL RHYTHM ECG Compared to ECG 09/24/2021 12:41:26 Ventricular premature complex(es) now present Aberrant conduction of supraventricular beat(s) now present T-wave abnormality now present Sinus rhythm no longer present TOWER CLIMBER ECG [address] [facility] Test Date: 2021-09-27 Pat Name: MANDIE COTTER Department: Room: 1091 Gender: Male Head Of Digital: : 1955 Requested By: LACEY BARKLEY Order Number: [id number] Reading MD: Ben Diego Measurements Intervals Groves Rate: 67 P: 5 AK: 111 QRS: 32 QRSD: 101 T: 46 QT: 392 QTc: 416 Interpretive Statements SINUS RHYTHM WITH SHORT AK INTERVAL NONSPECIFIC ST & T-WAVE ABNORMALITY Compared to ECG 09/26/2021 12:44:09 Short AK interval now present Atrial fibrillation no longer present Aberrant conduction of supraventricular beat(s) no longer present Ventricular premature complex(es) no longer present T-wave abnormality still present TOWER CLIMBER Assessment & Plan Length of stay (DAYS):9 Problem List Items Addressed This Visit None Visit Diagnoses Colostomy in place ([facility]) Relevant Medications acetaminophen (TYLENOL) tablet 1,000 [...] during hospitalization. All plans discussed with patient/patient's family/exercise physiology professor. They are agreeable with plan and voiced understanding. This note was dictated with Doctor.com medical dictation software; misspellings, punctuation errors, omitted words or dictation variances may occur. BETZAIDA OBRIEN PA-C 10/01/2021 1:17 PM Primary care physician: LORIE CASTANON MD Extended Emergency Contact Information Primary Emergency Contact: Vaishali Cotter Mobile Relation: Spouse Preferred language: [place] Shot Core Drill Operator Helper needed? No Secondary Emergency Contact: Tata Delgadillo Mobile Relation: Daughter Preferred language: [place] Shot Core Drill Operator Helper needed? No The patient was seen and [...] colostomy reversal, diet per surgery support appreciated. TOWER CLIMBER TOWER CLIMBER TOWER CLIMBER * Tiffani Moreno MD - 10/01/2021 11:46 [...] regular diet Possible D/C in am GABRIELLE TOWER CLIMBER * Ketty Palacios RN - 10/01/2021 10:11 [...] Goal: Evidence of wound healing Outcome: Progressing TOWER CLIMBER * Delilah Schultz PA-C - 09/30/2021 11:31 [...] normal. Lung bases are clear, within the zyqrp-sp-wehr. ABDOMEN: 1. No free air below the [...] bowel noted at the margin of the ccvvl-rb-zqnq Ordered By: MARGARITA SLOAN Interpreted By: Moncho Cheng, 09/24/2021 3:23 PM EKG: Results for orders placed or performed during the hospital encounter of 09/22/21 ECG 12 lead Narrative [facility] Test Date: 2021-09-24 Pat Name: MANDIE COTTER Department: Room: 109 Gender: Male Head Of Digital: : 1955 Requested By: PORSCHE LORD Order Number: [id number] Reading MD: Toño Lovett Measurements Intervals Groves Rate: 93 P: 30 AK: 136 QRS: 13 QRSD: 98 T: 53 QT: 353 QTc: 439 Interpretive Statements SINUS RHYTHM Compared to ECG 03/18/2021 10:08:00 T-wave abnormality no longer present TOWER CLIMBER ECG 12 lead Narrative [facility] Test Date: 2021-09-26 Pat Name: MANDIE COTTER Department: Room: 1091 Gender: Male Head Of Digital: : 1955 Requested By: LACEY BARKLEY Order Number: [id number] Reading MD: Toño Lovett Measurements Intervals Groves Rate: 127 P: AK: 0 QRS: 9 QRSD: 91 T: 32 QT: 306 QTc: 445 Interpretive Statements ATRIAL FIBRILLATION WITH RAPID VENTRICULAR RESPONSE WITH ABERRANT CONDUCTION OR VENTRICULAR PREMATURE COMPLEXES NONSPECIFIC ST & T-WAVE ABNORMALITY ABNORMAL RHYTHM ECG Compared to ECG 09/24/2021 12:41:26 Ventricular premature complex(es) now present Aberrant conduction of supraventricular beat(s) now present T-wave abnormality now present Sinus rhythm no longer present TOWER CLIMBER ECG 12 lead Narrative [facility] Test Date: 2021-09-27 Pat Name: MANDIE COTTER Department: Room: 1091 Gender: Male Head Of Digital: : 1955 Requested By: LACEY ABRKLEY Order Number: [id number] Reading MD: Ben Diego Measurements Intervals Groves Rate: 67 P: 5 AK: 111 QRS: 32 QRSD: 101 T: 46 QT: 392 QTc: 416 Interpretive Statements SINUS RHYTHM WITH SHORT AK INTERVAL NONSPECIFIC ST & T-WAVE ABNORMALITY Compared to ECG 09/26/2021 12:44:09 Short AK interval now present Atrial fibrillation no longer present Aberrant conduction of supraventricular beat(s) no longer present Ventricular premature complex(es) no longer present T-wave abnormality still present TOWER CLIMBER Delilah Schultz PA-C 09/30/2021 11:31 AM Inpatient Cosigned by Aneesh Mesa MD at 09/30/2021 1:47 PM CELL TOWER CLIMBER TOWER CLIMBER TOWER CLIMBER * Tiffani Moreno MD - 09/30/2021 10:55 [...] liquid Check stool for c diff GABRIELLE TOWER CLIMBER * Ketty Palacios RN - 09/30/2021 10:17 [...] Goal: Evidence of wound healing Outcome: Progressing TOWER CLIMBER * Jesi Torres RN - 09/30/2021 5:24 [...] Goal: Evidence of wound healing Outcome: Progressing TOWER CLIMBER * Annette Jorge RN - 09/29/2021 2:42 [...] deep venous thrombosis Outcome: Met This Shift TOWER CLIMBER * Tiffani Moreno MD - 09/29/2021 12:53 [...] P) D/c NG tube Clear liquids GABRIELLE TOWER CLIMBER * Evie Antony RN - 09/29/2021 12:15 PM CST INTERDISCIPLINARY CARE CONFERENCE: TEAM ATTENDANCE: CASE MANAGEMENT, UR, NURSING, PT, OT, CARDIOPULMONARY, CHANGE CONTROL ANALYST, HOSPITALIST HOME HEALTH,PASTORAL CARE, PHARMACY Meeting held at 1100. Nursing reports ng to have no output at this time. KUB done this AM. TOWER CLIMBER * Aneesh Mesa MD - 09/29/2021 11:51 [...] No results for input(s): PH, PCO2, PO2, [id number], BICARBWB, BASEDEFICIT, BASEEXCESS in the [id number] hours. IMAGING: XR ABD KUB Result Date: 09/27/2021 IMAGING STUDIES: XR ABD KUB DATE: 09/27/2021 2:22 PM CLINICAL HISTORY: abd gastric output,abd swelling . . COMPARISON STUDIES: No previous available. FINDINGS IMPRESSION : CHEST: 1. The cardiac configuration is normal. Lung bases are clear, within the ccuke-db-uqkk. ABDOMEN: 1. No free air below the [...] bowel noted at the margin of the ivixk-yj-klzr Ordered By: MARGARITA SLOAN Interpreted By: Moncho Cheng, 09/24/2021 3:23 PM EKG: Results for orders placed or performed during the hospital encounter of 09/22/21 ECG 12 lead Narrative [facility] Test Date: 2021-09-24 Pat Name: MANDIE COTTER Department: Room: 109 Gender: Male Head Of Digital: : 1955 Requested By: PORSCHE LORD Order Number: [id number] Reading MD: Toño Lovett Measurements Intervals Groves Rate: 93 P: 30 AK: 136 QRS: 13 QRSD: 98 T: 53 QT: 353 QTc: 439 Interpretive Statements SINUS RHYTHM Compared to ECG 03/18/2021 10:08:00 T-wave abnormality no longer present TOWER CLIMBER ECG 12 lead Narrative [facility] Test Date: 2021-09-26 Pat Name: MANDIE COTTER Department: Room: 1091 Gender: Male Head Of Digital: : 1955 Requested By: LACEY BARKLEY Order Number: [id number] Reading MD: Toño Lovett Measurements Intervals Groves Rate: 127 P: AK: 0 QRS: 9 QRSD: 91 T: 32 QT: 306 QTc: 445 Interpretive Statements ATRIAL FIBRILLATION WITH RAPID VENTRICULAR RESPONSE WITH ABERRANT CONDUCTION OR VENTRICULAR PREMATURE COMPLEXES NONSPECIFIC ST & T-WAVE ABNORMALITY ABNORMAL RHYTHM ECG Compared to ECG 09/24/2021 12:41:26 Ventricular premature complex(es) now present Aberrant conduction of supraventricular beat(s) now present T-wave abnormality now present Sinus rhythm no longer present TOWER CLIMBER ECG 12 lead Narrative [facility] Test Date: 2021-09-27 Pat Name: MANDIE [facility] Department: Room: 1091 Gender: Male Head Of Digital: : 1955 Requested By: LACEY BARKLEY Order Number: [id number] Reading MD: Ben Diego Measurements Intervals Groves Rate: 67 P: 5 AK: 111 QRS: 32 QRSD: 101 T: 46 QT: 392 QTc: 416 Interpretive Statements SINUS RHYTHM WITH SHORT AK INTERVAL NONSPECIFIC ST & T-WAVE ABNORMALITY Compared to ECG 09/26/2021 12:44:09 Short AK interval now present Atrial fibrillation no longer present Aberrant conduction of supraventricular beat(s) no longer present Ventricular premature complex(es) no longer present T-wave abnormality still present TOWER CLIMBER ANEESH MESA MD 09/29/2021 11:52 AM Inpatient TOWER CLIMBER * Evie Antony RN - 09/28/2021 2:42 PM CST INTERDISCIPLINARY CARE CONFERENCE: TEAM ATTENDANCE: CASE MANAGEMENT, UR, NURSING, PT, OT, CARDIOPULMONARY, CHANGE CONTROL ANALYST, HOSPITALIST HOME HEALTH,PASTORAL CARE, PHARMACY Meeting held at 1100. Patient remains NPO. TOWER CLIMBER * Tiffani Moreno MD - 09/28/2021 1:45 [...] As per hospitalist KUB in am GABRIELLE TOWER CLIMBER * Lacey Barkley MD - 09/28/2021 10:58 [...] normal. Lung bases are clear, within the bcjoq-dr-iwtz. ABDOMEN: 1. No free air below the [...] IV Reglan KCL replacement LACEY BARKLEY MD TOWER CLIMBER * Gretel Aponte RN - 09/27/2021 10:35 [...] Goal: Evidence of wound healing Outcome: Progressing TOWER CLIMBER * Margarita Sloan MD - 09/27/2021 2:35 [...] ambulation and incentive. Margarita Sloan MD 09/27/2021 TOWER CLIMBER * Alissa Flores, RD - 09/27/2021 11:27 [...] index is 26.66 kg/m??. BMI Assessment: Normal [place] Body Weight: 148# Percent [place] Body Weight: 107% Usual Body Weight: 161# Percent Usual Body Weight: 98% Percent Weight Loss: 2% Nutrition Focused Physical Findings: no evidence of muscle or adipose tissue loss Nutrition: Current Diet Order: Diet clear liquid Appropriate Diet Comment: Patient is NPO at this time Learning needs assessed: Patient is able to understand nutritional guidelines Chewing/swallowing problems: No Food allergies/intolerances: none Cultural/Oriental Orthodox food preferences: none Current diet appropriate? Yes [...] Muscle Wasting No Fluid Accumulation No Reduced Siding Applicator Strength No Discharge nutrition plan: Discharge needs assessed. Will provide/update discharge instructions as needed. (See Nutrition Prescription above) ALISSA FLORES RD 09/27/21, 11:27 AM TOWER CLIMBER * Aliya Moreno RN - 09/27/2021 11:22 AM CST [facility] for discharge planning @1100 with HOSPITALIST, CRAFT CENTER DIRECTOR, CM, UR, PASTORAL CARE, PHARMACY, CARDIOPULMONARY, CHANGE CONTROL ANALYST, HH. Advance diet to clear liquid NG tube [facility] to follow surgically Denies need for HH at this time. TOWER CLIMBER * Lacey Barkley MD - 09/27/2021 10:58 [...] if approved by Surgery. LACEY BARKLEY MD TOWER CLIMBER * Rose Marie Starr RN - 09/26/2021 [...] Goal: Evidence of wound healing Outcome: Progressing TOWER CLIMBER * Margarita Sloan MD - 09/26/2021 2:43 [...] bowel noted at the margin of the bpdsc-fo-zilr Ordered By: MARGARITA SLOAN Interpreted By: Moncho Cheng, 09/24/2021 3:23 PM Assessment: Mandie Cotter is a 66-year-old male status post laparoscopic reversal of Hudson's procedure. Plan: Patient was in A. fib and was started on p.o. metoprolol. Okay for sips of clears with intermittent NG tube suction. Continue current medical management. Reassess NG tube output tomorrow. Margarita Sloan MD 09/26/2021 TOWER CLIMBER * Lacey Barkley MD - 09/26/2021 1:33 PM CST Patient noted to be tachycardia with irregular rhythm. EKG revealed a.fib RVR. Recheck of HR in 80's. Cancelled IV cardizem and began metoprolol 25 mg po BID. Placed on telemetry. TOWER CLIMBER * Lacey Barkley MD - 09/26/2021 11:34 [...] bowel noted at the margin of the piwwr-qn-unhn Ordered By: MARGARITA SLOAN Interpreted By: Moncho [...] on NGT removal EKG LACEY BARKLEY MD TOWER CLIMBER * Dulce Nguyen LPN - 09/25/2021 10:49 [...] Goal: Evidence of wound healing Outcome: Progressing TOWER CLIMBER * Margarita Sloan MD - 09/25/2021 4:25 [...] bowel noted at the margin of the ljbeh-sv-lfcv Ordered By: MARGARITA SLOAN Interpreted By: Moncho [...] change on Monday. Margarita Sloan MD 09/25/2021 TOWER CLIMBER * Lacey Barkley MD - 09/25/2021 12:14 [...] bowel noted at the margin of the wfvyv-ob-muuf Ordered By: MARGARITA SLOAN Interpreted By: Moncho Cehng, 09/24/2021 3:23 PM Assessment S/p colostomy reversal: [...] now Continue to ambulate LACEY BARKLEY MD TOWER CLIMBER * Evie Antony RN - 09/24/2021 3:10 PM CST INTERDISCIPLINARY CARE CONFERENCE: TEAM ATTENDANCE: CASE MANAGEMENT, UR, NURSING, PT, OT, CARDIOPULMONARY, CHANGE CONTROL ANALYST, HOSPITALIST HOME HEALTH,PASTORAL CARE, PHARMACY Meeting held at 1100. Remains NPO. Nursing reports patient to have had an emesis this morning. Willcontinue to monitor. TOWER CLIMBER * Margarita Sloan MD - 09/24/2021 2:07 [...] advancement of diet. Margarita Sloan MD 09/24/2021 TOWER CLIMBER * Porsche Lord NP - 09/24/2021 10:03 [...] Lacey Barkley MD at 09/24/2021 4:35 PM CELL TOWER CLIMBER TOWER CLIMBER TOWER CLIMBER Associated attestation - Lacey Barkley MD - 09/24/2021 4:35 PM CELL TOWER CLIMBER I, LACEY BARKLEY MD, performed an examination [...] Goal: Evidence of wound healing Outcome: Progressing TOWER CLIMBER * Margarita Sloan MD - 09/23/2021 1:30 [...] DVT prophylaxis, incentive. Margarita Sloan MD 09/23/2021 TOWER CLIMBER * Lois Gilliland, PT - 09/23/2021 1:01 [...] biopsy performed by Margarita Sloan MD at [facility] OR ??? COLOSTOMY reversable ??? HERNIA REPAIR Right [facility] ??? HERNIA REPAIR Left [facility] ??? NECK/CHEST PROCEDURE UNLISTED Right [facility], re-built right side of neck. ??? SMALL INTESTINE SURGERY bowel rupture ??? TOTAL KNEE ARTHROPLASTY Bilateral ZANA Partial KR, done @ [facility] No current outpatient medications on file. [...] (4 GURVINDER ) Prior Function Level of Door Independent with ADLs;Independent with functional transfers;Independent with [...] the session with patient seated in recliner. TOWER CLIMBER * Libby Paul, OT - 09/23/2021 12:41 [...] spouse when OK medically. No training needed. TOWER CLIMBER * Alissa Flores, RD - 09/23/2021 11:57 [...] index is 24.96 kg/m??. BMI Assessment: Normal [place] Body Weight: 148# Percent [place] Body Weight: 107% Usual Body Weight: 161# Percent Usual Body Weight: 98% Percent Weight Loss: 2% Nutrition Focused Physical Findings: no evidence of muscle or adipose tissue loss Nutrition: Current Diet Order: Diet NPO effective now Diet Comment: Patient is NPO at this time Learning needs assessed: Patient is able to understand nutritional guidelines Chewing/swallowing problems: No Food allergies/intolerances: none Cultural/Oriental Orthodox food preferences: none Current diet appropriate? Yes [...] Muscle Wasting No Fluid Accumulation No Reduced Siding Applicator Strength No Discharge nutrition plan: Discharge needs assessed. Will provide/update discharge instructions as needed. (See Nutrition Prescription above) ALISSA FLORES RD 09/23/21, 11:57 AM TOWER CLIMBER * Aliya Moreno RN - 09/23/2021 11:27 AM CST [facility] for discharge planning @1100 with HOSPITALIST, CRAFT CENTER DIRECTOR, CM, UR, PASTORAL CARE, PHARMACY, CARDIOPULMONARY, CHANGE CONTROL ANALYST, HH. NPO - advance to sips of clear liquids at 1600 today [facility] following surgically PT keshav Osborne Expect 2-3 more days TOWER CLIMBER * Aliya Moreno RN - 09/23/2021 9:05 AM CST 09/23/21 [id number] Referral Data Referral Reason Discharge Planning Source of Information Patient Patient Information Primary Caregiver Self Support System Immediate family (daughter, son and sister live in [place]) Baseline ADL's Functional Status Independent (patient drives) Living Arrangements Spouse/significant other Type of Residence Private residence (2 story with a basement; all living areas are on the main floor) Ambulation Assistance No Active DME (CP[facility] - [facility] [place]) Bathing/Grooming Assistance No Dressing Assistance No Behavior Oriented;Cooperative Communication Talks;Understands speaking;Understands [place] Socioeconomic Needs Caregiver Needed No At Risk [...] of major lifestyle changes, including change in nursing home living environment No Family concerns/conflicts No Inadequate social and/or financial supports No Abuse and/or neglect of elder, adult or child No Psychiatric and/or substance abuse issues affecting current hospitalization No Homelessness with lack of safe discharge environment No Need for guardianship petition No Chaptered patient No [place] Only - Criminal Background check [place] only - Is patient going to half-way? No Spoke with patient and in room. Discussed home health services with patient. Patient denies the need for home health services. TOWER CLIMBER documented in this encounter H&P Notes * [...] biopsy performed by Margarita Sloan MD at [facility] OR ??? COLOSTOMY ? reversable ??? HERNIA REPAIR Right ? [facility] ??? HERNIA REPAIR Left ? [facility] ??? NECK/CHEST PROCEDURE UNLISTED Right ? [facility], re-built right side of neck. ??? SMALL INTESTINE SURGERY ? bowel rupture ??? TOTAL KNEE ARTHROPLASTY Bilateral ? ZANA Partial KR, done @ [facility] ? Social History ?? Tobacco Use [...] kg/m??. ?? Diagnoses/Impression: 1. Colostomy in place (CMS/[facility]) ? Recommendations and Plan: Mandie Cotter [...] coordinationof care. ?? Margarita Sloan MD ?? TOWER CLIMBER documented in this encounter Consult Notes * [...] biopsy performed by Margarita Sloan MD at [facility] OR ??? COLOSTOMY reversable ??? HERNIA REPAIR Right [facility] ??? HERNIA REPAIR Left [facility] ??? NECK/CHEST PROCEDURE UNLISTED Right [facility], re-built right side of neck. ??? SMALL INTESTINE SURGERY bowel rupture ??? TOTAL KNEE ARTHROPLASTY Bilateral ZANA Partial KR, done @ [facility] Medications Prior to Admission Medication Sig [...] Lacey Barkley MD at 09/23/2021 3:53 PM CELL TOWER CLIMBER TOWER CLIMBER TOWER CLIMBER Associated attestation - Lacey Barkley MD - 09/23/2021 3:53 PM CELL TOWER CLIMBER I, LACEY BARKLEY MD, performed a Consultation [...] - 09/22/2021 7:10 AM CST [facility] Inpatient Consult Note Encounter Date: 09/22/2021 Patient [...] biopsy performed by Margarita Sloan MD at [facility] OR ??? COLOSTOMY reversable ??? HERNIA REPAIR Right [facility] ??? HERNIA REPAIR Left [facility] ??? NECK/CHEST PROCEDURE UNLISTED Right [facility], re-built right side of neck. ??? SMALL INTESTINE SURGERY bowel rupture ??? TOTAL KNEE ARTHROPLASTY Bilateral ZANA Partial KR, done @ [facility] Social History Socioeconomic History ??? Marital [...] Oral Once ??? ceFAZolin 2 g Intravenous Web Search Evaluator ??? ceFAZolin 2 g Intravenous Web Search Evaluator ??? celecoxib 200 mg Oral Once ??? heparin (porcine) 5,000 Units Subcutaneous See Admin Instructions ??? metroNIDAZOLE 500 mg Intravenous Q8H ??? metroNIDAZOLE 500 mg Intravenous Web Search Evaluator ??? scopolamine 1 patch Transdermal Once ?? [...] in consultation. -------- HAIR PERALTA MD Urology [address] [address] TOWER CLIMBER documented in this encounter OR Notes * Op Note - Margarita Sloan MD - 09/22/2021 3:39 PM CST General Surgery Operative Note Patient name: Mandie Cotter Date of : 1955 Date of Surgery: 09/22/2021 Surgeon: Margarita Sloan MD Tmr Teacher: Banking Attorney: Savannah Brush, APPLE THINNER Circulating Nurse 1: Dorinda Pak RN Scrub Person 1: Ezio Jiang RN Scrub Person 2: Cyn Burleson, GINA Moreno MD (no qualified marketing support assistant for performance of the anastomosis) Pre-Op Diagnosis: colostomy in place Post-Op Diagnosis: Same Procedure: Reversal of Hudson's colostomy, bowel resection with end-to-end anastomosis (spy ICG tocheck anastomosis), splenic flexure mobilization, flexible sigmoidoscopy, VAC placement. Anesthesia Type: General Anesthesia Team: STRUCTURAL FITTER: Mandie Paul CRNA EBL: Minimal Complications: None [...] At this time, there was no qualified sales operations assistant to help with the anastomosis and [...] there were 2 complete donuts. A 15 Tamazight Easton-Srinivasan drain was then placed in the [...] a running looped 0 PDS with interspersed [id number] #1 nylon. Closure was noted to be [...] anastomosis portion of the procedure (no qualified sales operations assistant) Margarita Sloan MD 09/22/2021 TOWER CLIMBER TOWER CLIMBER TOWER CLIMBER TOWER CLIMBER * Op Note - Hair Peralta MD - 09/22/2021 9:25 AM CST Urologic Surgery Operative Note Mandie Cotter [id number] 1955 09/22/21 Preoperative Diagnosis: Diverticulitis Postoperative Diagnosis: [...] present for and performed the entire procedure. TOWER CLIMBER documented in this encounter Plan of Treatment Upcoming Encounters Date Type Department Care Team (Late st Contact Info) Description 01/27/2025 7:00 AM CDT Office Visit [facility] Family & Internal Medicine [facility] [id number] [place] [phone] [place] Nelson [place] [id number] [place] [address] 10/22/2025 9:15 AM CELL TOWER CLIMBER Office Visit [facility] [phone] Mily Gan MD [address] [phone] documented as of this encounter Goals Goal [...] COMPREHENSIVE METABOLIC PANEL Routine 10/02/2021 8:54 AM CELL TOWER CLIMBER CBC W/DIFF AUTOMATED Routine 10/02/2021 8:54 AM CELL TOWER CLIMBER XR ABD KUB Today 10/01/2021 8:39 AM CELL TOWER CLIMBER COMPREHENSIVE METABOLIC PANEL Routine 10/01/2021 6:20 AM CELL TOWER CLIMBER CBC W/DIFF AUTOMATED Routine 10/01/2021 6:20 AM CELL TOWER CLIMBER MAGNESIUM Routine 10/01/2021 6:20 AM CELL TOWER CLIMBER HC EIA QL CLOS DIFF TOXIN AG STAT 09/30/2021 4:04 PM CELL TOWER CLIMBER COMPREHENSIVE METABOLIC PANEL Routine 09/30/2021 7:40 AM CELL TOWER CLIMBER CBC W/DIFF AUTOMATED Routine 09/30/2021 7:40 AM CELL TOWER CLIMBER COMPREHENSIVE METABOLIC PANEL Routine 09/29/2021 12:36 PM CELL TOWER CLIMBER CBC W/DIFF AUTOMATED Routine 09/29/2021 12:36 PM CELL TOWER CLIMBER XR ABD KUB Today 09/29/2021 8:59 AM CELL TOWER CLIMBER POTASSIUM, SERUM STAT 09/28/2021 6:50 PM CELL TOWER CLIMBER COMPREHENSIVE METABOLIC PANEL Routine 09/28/2021 9:11 AM CELL TOWER CLIMBER CBC W/DIFF AUTOMATED Routine 09/28/2021 9:11 AM CELL TOWER CLIMBER USE ECHOCARDIOGRAM Today 09/27/2021 2: 34 PM CELL TOWER CLIMBER XR ABD KUB Today 09/27/2021 2:27 PM CELL TOWER CLIMBER ECG 12-LEAD Routine 09/27/2021 1:42 PM CELL TOWER CLIMBER COMPREHENSIVE METABOLIC PANEL Routine 09/27/2021 8:27 AM CELL TOWER CLIMBER CBC W/DIFF AUTOMATED Routine 09/27/2021 8:27 AM CELL TOWER CLIMBER ECG 12-LEAD Routine 09/26/2021 12:44 PM CELL TOWER CLIMBER COMPREHENSIVE METABOLIC PANEL Routine 09/25/2021 6:40 AM CELL TOWER CLIMBER CBC W/DIFF AUTOMATED Routine 09/25/2021 6:40 AM CELL TOWER CLIMBER XR CHEST PORTABLE Routine 09/24/2021 3:1 9 PM CELL TOWER CLIMBER HC OCCULT BLOOD GASTRIC Routine 09/24/2021 3:00 PM CELL TOWER CLIMBER ECG 12-LEAD Routine 09/24/2021 12:41 PM CELL TOWER CLIMBER COMPREHENSIVE METABOLIC PANEL Routine 09/24/2021 6:08 AM CELL TOWER CLIMBER CBC W/DIFF AUTOMATED Routine 09/24/2021 6:08 AM CELL TOWER CLIMBER COMPREHENSIVE METABOLIC PANEL Routine 09/23/2021 5:45 AM CELL TOWER CLIMBER CBC W/DIFF AUTOMATED Routine 09/23/2021 5:45 AM CELL TOWER CLIMBER CYSTOSCOPY,INSERT URETERAL STENT 09/22/2021 8:32 AM CELL TOWER CLIMBER colostomy in place Case Notes parres placing ureteral stents Special Needs 0600 CLOSE ENTEROSTOMY 09/22/2021 8:3 2 AM CELL TOWER CLIMBER colostomy in place Case Notes parres placing ureteral stents Special Needs 0600 TYPE & SCREEN Routine 09/22/2021 6:30 AM CELL TOWER CLIMBER Colostomy in place (CMS/HCC HHS/HCC) PATHOLOGY Routine 09/22/2021 12:00 AM CELL TOWER CLIMBER documented in this encounter Results * (ABNORMAL) CBC W/DIFF AUTOMATED (10/02/2021 8:54 AM CELL TOWER CLIMBER) [facility] WBC 5.6 4.4 - 11.0 x10'3/uL 10/02/2021 9:33 AM [facility] RBC 3.98(L) 4.50 - 5.90 x10'6/uL 10/02/2021 9:33 AM [facility] HGB 12.7(L) 14.0 - 17.5 G/DL 10/02/2021 9:33 AM [facility] HCT 39.1(L) 41.5 - 50.4 % 10/02/2021 9:33 AM [facility] MCV 98.2(H) 80.0 - 96.0 FL 10/02/2021 9:33 AM [facility] MCH 31.9(H) 26.5 - 31.4 PG 10/02/2021 9:33 AM [facility] MCHC 32.5 31.9 - 34.8 G/DL 10/02/2021 9:33 AM [facility] RDW 13.1 12.3 - 14.3 % 10/02/2021 9:33 AM [facility] PLT 382(H) 151 - 353 x10'3/uL 10/02/2021 9:33 AM [facility] MPV 10.8 9.7 - 11.9 FL 10/02/2021 9:33 AM [facility] RBC MORPHOLOGY NORMAL 10/02/2021 9:33 AM [facility] PLT MORPH. NORMAL 10/02/2021 9:33 AM [facility] WBC MORPHOLOGY NORMAL 10/02/2021 9:33 AM [facility] LYMPHOCYTES % 27.2 15.8 - 45.0 % 10/02/2021 9:33 AM [facility] NEUTROPHILS % 61.1 42.1 - 71.9 % 10/02/2021 9:33 AM [facility] MONOCYTES % 9.2 5.7 - 12.5 % 10/02/2021 9:33 AM [facility] EOSINOPHILS 1.4 0.0 - 5.6 % 10/02/2021 9:33 AM [facility] BASOPHILS 0.7 0.0 - 1.3 % 10/02/2021 9:33 AM [facility] ABS. NEUTROPHILS 3.44 1.40 - 6.00 x10'3/uL 10/02/2021 9:33 AM [facility] IMMATURE GRANS % 0.4 0.0 - 0.5 % 10/02/2021 9:33 AM [facility] ABS. LYMPHOCYTES 1.53 0.80 - 4.70 x10'3/uL 10/02/2021 9:33 AM [facility] 10/02/2021 8:54 AM CELL TOWER CLIMBER Delilah Schultz PA-C LABORATORY Final Result [facility] [address] [place] [address], * (ABNORMAL) COMPREHENSIVE METABOLIC PANEL (10/02/2021 8:54 AM CELL TOWER CLIMBER) GLUCOSE 121(H) 70 - 99 MG/DL 10/02/2021 9:57 AM [facility] BUN 5(L) 7 - 18 MG/DL 10/02/2021 9:57 AM [facility] CREATININE S/P/B 0.80 0.7 - 1.3 MG/DL 10/02/2021 9:57 AM [facility] SODIUM S/P/B 140 136 - 145 MMOL/L 10/02/2021 9:57 AM [facility] POTASSIUM S/P/B 4.5 3.5 - 5.1 MMOL/L 10/02/2021 9:57 AM [facility] CHLORIDE S/P/B 105 100 - 108 MMOL/L 10/02/2021 9:57 AM [facility] CO2 29.2 21 - 32 MMOL/L 10/02/2021 9:57 AM [facility] CALCIUM S/P/B 8.4(L) 8.5 - 10.1 MG/DL 10/02/2021 9:57 AM [facility] BILIRUBIN TOTAL S/P/B 0.6 0.2 - 1.2 MG/DL 10/02/2021 9:57 AM [facility] TOTAL PROTEIN S/P/B 6.8 6.4 - 8.2 G/DL 10/02/2021 9:57 AM [facility] ALBUMIN S/P/B 3.0(L) 3.4 - 5.0 G/DL 10/02/2021 9:57 AM [facility] AST 24 15 - 37 U/L 10/02/2021 9:57 AM [facility] ALT 50 16 - 60 U/L 10/02/2021 9:57 AM [facility] ALKALINE PHOSPHATASE S/P/B 36(L) 50 - 136 U/L 10/02/2021 9:57 AM [facility] ANION GAP 5.8 5 - 15 MMOL/L 10/02/2021 9:57 AM [facility] BUN CREATININE RATIO 6.2 6 - 26 10/02/2021 9:57 AM [facility] A/G RATIO 0.8(L) 1.0 - 2.0 RATIO 10/02/2021 9:57 AM CELL TOWER CLIMBER [facility] EGFR NON-AFR. AMER. >90 >90 ML/MIN/1.7 3 M2 10/02/2021 9:57 AM CELL TOWER CLIMBER [facility] EGFR AFR. AMER. >90 >90 ML/MIN/1.7 3 M2 10/02/2021 9:57 AM CELL TOWER CLIMBER [facility] Comment: NOTE: eGFR is not calculated for patients <18 years of age. This is an estimated GFR (CKD EPI) and should not be used for calculating drug doses. 10/02/2021 8:54 AM CELL TOWER CLIMBER Delilah Schultz PA-C LABORATORY Final Result [facility] [address] [place] [address], * XR ABD KUB (10/01/2021 8:39 AM CELL TOWER CLIMBER) Anatomical Region Laterality Modality Abdomen Radiographic Leola ging 10/01/2021 9:03 AM CELL TOWER CLIMBER Impressions 10/01/2021 9:24 AM CELL TOWER CLIMBER IMPRESSION: 1. ??Improved air-filled small bowel loops [...] 10/01/2021 9:03 AM Narrative 10/01/2021 9:24 AM CELL TOWER CLIMBER IMAGING STUDIES: ??XR ABD KUB ? DATE: [...] Final Result * MAGNESIUM (10/01/2021 6:20 AM CELL TOWER CLIMBER) MAGNESIUM 2.0 1.8 - 2.4 MG/DL 10/01/2021 11:27 AM CELL TOWER CLIMBER [facility] 10/01/2021 6:20 AM CELL TOWER CLIMBER Betzaida Obrien PA-C LABORATORY Final Result [facility] [address] [place] [address], [place] [phone] * (ABNORMAL) CBC W/DIFF AUTOMATED (10/01/2021 6:20 AM CELL TOWER CLIMBER) [facility] WBC 5.6 4.4 - 11.0 x10'3/uL 10/01/2021 6:50 AM [facility] RBC 4.03(L) 4.50 - 5.90 x10'6/uL 10/01/2021 6:50 AM [facility] HGB 12.8(L) 14.0 - 17.5 G/DL 10/01/2021 6:50 AM [facility] HCT 38.9(L) 41.5 - 50.4 % 10/01/2021 6:50 AM [facility] MCV 96.5(H) 80.0 - 96.0 FL 10/01/2021 6:50 AM [facility] MCH 31.8(H) 26.5 - 31.4 PG 10/01/2021 6:50 AM [facility] MCHC 32.9 31.9 - 34.8 G/DL 10/01/2021 6:50 AM [facility] RDW 13.2 12.3 - 14.3 % 10/01/2021 6:50 AM [facility] PLT 353 151 - 353 x10'3/uL 10/01/2021 6:50 AM [facility] MPV 10.3 9.7 - 11.9 FL 10/01/2021 6:50 AM [facility] RBC MORPHOLOGY NORMAL 10/01/2021 6:50 AM [facility] PLT MORPH. NORMAL 10/01/2021 6:50 AM [facility] WBC MORPHOLOGY NORMAL 10/01/2021 6:50 AM [facility] LYMPHOCYTES % 26.0 15.8 - 45.0 % 10/01/2021 6:50 AM [facility] NEUTROPHILS % 59.6 42.1 - 71.9 % 10/01/2021 6:50 AM [facility] MONOCYTES % 11.2 5.7 - 12.5 % 10/01/2021 6:50 AM [facility] EOSINOPHILS 2.1 0.0 - 5.6 % 10/01/2021 6:50 AM [facility] BASOPHILS 0.7 0.0 - 1.3 % 10/01/2021 6:50 AM [facility] ABS. NEUTROPHILS 3.35 1.40 - 6.00 x10'3/uL 10/01/2021 6:50 AM [facility] IMMATURE GRANS % 0.4 0.0 - 0.5 % 10/01/2021 6:50 AM [facility] ABS. LYMPHOCYTES 1.46 0.80 - 4.70 x10'3/uL 10/01/2021 6:50 AM [facility] 10/01/2021 6:20 AM CELL TOWER CLIMBER Delilah Schultz PA-C LABORATORY Final Result [facility] [address] [place] [address], * (ABNORMAL) COMPREHENSIVE METABOLIC PANEL (10/01/2021 6:20 AM CELL TOWER CLIMBER) GLUCOSE 107(H) 70 - 99 MG/DL 10/01/2021 7:05 AM [facility] BUN 2(L) 7 - 18 MG/DL 10/01/2021 7:05 AM [facility] CREATININE S/P/B 0.73 0.7 - 1.3 MG/DL 10/01/2021 7:05 AM [facility] SODIUM S/P/B 139 136 - 145 MMOL/L 10/01/2021 7:05 AM [facility] POTASSIUM S/P/B 4.5 3.5 - 5.1 MMOL/L 10/01/2021 7:05 AM [facility] CHLORIDE S/P/B 106 100 - 108 MMOL/L 10/01/2021 7:05 AM [facility] CO2 30.0 21 - 32 MMOL/L 10/01/2021 7:05 AM [facility] CALCIUM S/P/B 8.5 8.5 - 10.1 MG/DL 10/01/2021 7:05 AM [facility] BILIRUBIN TOTAL S/P/B 0.6 0.2 - 1.2 MG/DL 10/01/2021 7:05 AM [facility] TOTAL PROTEIN S/P/B 6.5 6.4 - 8.2 G/DL 10/01/2021 7:05 AM [facility] ALBUMIN S/P/B 2.9(L) 3.4 - 5.0 G/DL 10/01/2021 7:05 AM [facility] AST 29 15 - 37 U/L 10/01/2021 7:05 AM [facility] ALT 60 16 - 60 U/L 10/01/2021 7:05 AM [facility] ALKALINE PHOSPHATASE S/P/B 33(L) 50 - 136 U/L 10/01/2021 7:05 AM [facility] ANION GAP 3.0(L) 5 - 15 MMOL/L 10/01/2021 7:05 AM [facility] BUN CREATININE RATIO 2.7(L) 6 - 26 10/01/2021 7:05 AM CELL TOWER CLIMBER [facility] A/G RATIO 0.8(L) 1.0 - 2.0 RATIO 10/01/2021 7:05 AM [facility] EGFR NON-AFR. AMER. >90 >90 ML/MIN/1.7 3 M2 10/01/2021 7:05 AM [facility] EGFR AFR. AMER. >90 >90 ML/MIN/1.7 3 M2 10/01/2021 7:05 AM [facility] Comment: NOTE: eGFR is not calculated for patients <18 years of age. This is an estimated GFR (CKD EPI) and should not be used for calculating drug doses. 10/01/2021 6:20 AM CELL TOWER CLIMBER Delilah Schultz PA-C LABORATORY Final Result Performing Organization Address City/[facility] Co de Phone Number [facility] [address] [place] [address], [place] [phone] * CLOSTRIDIUM DIFFICILE (09/30/2021 4:04 PM CELL TOWER CLIMBER) GD ANTIGEN NEGATIVE NEGATIVE 09/30/2021 4:50 PM CELL TOWER CLIMBER [facility] C DIFFICILE TOXIN A&B (STOOL) NEGATIVE NEGATIVE 09/30/2021 4:50 PM CELL TOWER CLIMBER [facility] COMMENT GDH NEGATIVE/TOXI N A & B NEGATIVE: NEGATIVE FOR TOXIGENIC C. DIFFICILE. GDH NEGATIVE/TOXI N A & B NEGATIVE: NEGATIVE FOR TOXIGENIC C. 09/30/2021 4:50 PM CELL TOWER CLIMBER [facility] STOOL SPECIMEN / Unknown 09/30/2021 4:04 PM CELL TOWER CLIMBER us Tiffani Moreno MD BODY FLUIDS AND STOOLS ORDERABLE S Final Result Performing Organization Address City/[facility]/ZIP Co de Phone Number [facility] [address] [place] [address], * (ABNORMAL) COMPREHENSIVE METABOLIC PANEL (09/30/2021 7:40 AM CELL TOWER CLIMBER) [facility] GLUCOSE 104(H) 70 - 99 MG/DL 09/30/2021 8:31 AM [facility] BUN 2(L) 7 - 18 MG/DL 09/30/2021 8:31 AM [facility] CREATININE S/P/B 0.70 0.7 - 1.3 MG/DL 09/30/2021 8:31 AM [facility] SODIUM S/P/B 140 136 - 145 MMOL/L 09/30/2021 8:31 AM [facility] POTASSIUM S/P/B 4.6 3.5 - 5.1 MMOL/L 09/30/2021 8:31 AM [facility] CHLORIDE S/P/B 105 100 - 108 MMOL/L 09/30/2021 8:31 AM [facility] CO2 27.8 21 - 32 MMOL/L 09/30/2021 8:31 AM [facility] CALCIUM S/P/B 8.8 8.5 - 10.1 MG/DL 09/30/2021 8:31 AM [facility] BILIRUBIN TOTAL S/P/B 0.9 0.2 - 1.2 MG/DL 09/30/2021 8:31 AM [facility] TOTAL PROTEIN S/P/B 6.2(L) 6.4 - 8.2 G/DL 09/30/2021 8:31 AM [facility] ALBUMIN S/P/B 2.7(L) 3.4 - 5.0 G/DL 09/30/2021 8:31 AM [facility] AST 43(H) 15 - 37 U/L 09/30/2021 8:31 AM [facility] ALT 70(H) 16 - 60 U/L 09/30/2021 8:31 AM [facility] ALKALINE PHOSPHATASE S/P/B 31(L) 50 - 136 U/L 09/30/2021 8:31 AM [facility] ANION GAP 7.2 5 - 15 MMOL/L 09/30/2021 8:31 AM [facility] BUN CREATININE RATIO 2.9(L) 6 - 26 09/30/2021 8:31 AM [facility] A/G RATIO 0.8(L) 1.0 - 2.0 RATIO 09/30/2021 8:31 AM [facility] EGFR NON-AFR. AMER. >90 >90 ML/MIN/1.7 3 M2 09/30/2021 8:31 AM [facility] EGFR AFR. AMER. >90 >90 ML/MIN/1.7 3 M2 09/30/2021 8:31 AM [facility] Comment: NOTE: eGFR is not calculated for patients <18 years of age. This is an estimated GFR (CKD EPI) and should not be used for calculating drug doses. 09/30/2021 7:40 AM [facility] Aneesh Mesa MD LABORATORY Final Result [facility] [address] [place] [address], * (ABNORMAL) CBC W/DIFF AUTOMATED (09/30/2021 7:40 AM CELL TOWER CLIMBER) WBC 5.8 4.4 - 11.0 x10'3/uL 09/30/2021 8:13 AM [facility] RBC 3.92(L) 4.50 - 5.90 x10'6/uL 09/30/2021 8:13 AM [facility] HGB 12.6(L) 14.0 - 17.5 G/DL 09/30/2021 8:13 AM [facility] HCT 37.3(L) 41.5 - 50.4 % 09/30/2021 8:13 AM [facility] MCV 95.2 80.0 - 96.0 FL 09/30/2021 8:13 AM [facility] MCH 32.1(H) 26.5 - 31.4 PG 09/30/2021 8:13 AM [facility] MCHC 33.8 31.9 - 34.8 G/DL 09/30/2021 8:13 AM [facility] RDW 13.2 12.3 - 14.3 % 09/30/2021 8:13 AM [facility] PLT 312 151 - 353 x10'3/uL 09/30/2021 8:13 AM [facility] MPV 10.6 9.7 - 11.9 FL 09/30/2021 8:13 AM [facility] RBC MORPHOLOGY NORMAL 09/30/2021 8:13 AM [facility] PLT MORPH. NORMAL 09/30/2021 8:13 AM [facility] WBC MORPHOLOGY NORMAL 09/30/2021 8:13 AM [facility] LYMPHOCYTES % 22.9 15.8 - 45.0 % 09/30/2021 8:13 AM [facility] NEUTROPHILS % 62.2 42.1 - 71.9 % 09/30/2021 8:13 AM [facility] MONOCYTES % 11.6 5.7 - 12.5 % 09/30/2021 8:13 AM [facility] EOSINOPHILS 2.4 0.0 - 5.6 % 09/30/2021 8:13 AM [facility] BASOPHILS 0.7 0.0 - 1.3 % 09/30/2021 8:13 AM [facility] ABS. NEUTROPHILS 3.59 1.40 - 6.00 x10'3/uL 09/30/2021 8:13 AM [facility] IMMATURE GRANS % 0.2 0.0 - 0.5 % 09/30/2021 8:13 AM [facility] ABS. LYMPHOCYTES 1.32 0.80 - 4.70 x10'3/uL 09/30/2021 8:13 AM [facility] 09/30/2021 7:40 AM [facility] Aneesh Mesa MD LABORATORY Final Result [facility] [id number] [place] [id number], * (ABNORMAL) COMPREHENSIVE METABOLIC PANEL (09/29/2021 12:36 PM [facility]) GLUCOSE 115(H) 70 - 99 MG/DL 09/29/2021 1:04 PM [facility] BUN 3(L) 7 - 18 MG/DL 09/29/2021 1:04 PM [facility] CREATININE S/P/B 0.73 0.7 - 1.3 MG/DL 09/29/2021 1:04 PM [facility] SODIUM S/P/B 141 136 - 145 MMOL/L 09/29/2021 1:04 PM [facility] POTASSIUM S/P/B 3.7 3.5 - 5.1 MMOL/L 09/29/2021 1:04 PM [facility] CHLORIDE S/P/B 105 100 - 108 MMOL/L 09/29/2021 1:04 PM [facility] CO2 30.5 21 - 32 MMOL/L 09/29/2021 1:04 PM [facility] CALCIUM S/P/B 8.4(L) 8.5 - 10.1 MG/DL 09/29/2021 1:04 PM [facility] BILIRUBIN TOTAL S/P/B 0.9 0.2 - 1.2 MG/DL 09/29/2021 1:04 PM [facility] TOTAL PROTEIN S/P/B 6.6 6.4 - 8.2 G/DL 09/29/2021 1:04 PM [facility] ALBUMIN S/P/B 3.0(L) 3.4 - 5.0 G/DL 09/29/2021 1:04 PM [facility] AST 55(H) 15 - 37 U/L 09/29/2021 1:04 PM [facility] ALT 70(H) 16 - 60 U/L 09/29/2021 1:04 PM [facility] ALKALINE PHOSPHATASE S/P/B 32(L) 50 - 136 U/L 09/29/2021 1:04 PM [facility] ANION GAP 5.5 5 - 15 MMOL/L 09/29/2021 1:04 PM [facility] BUN CREATININE RATIO 4.1(L) 6 - 26 09/29/2021 1:04 PM [facility] A/G RATIO 0.8(L) 1.0 - 2.0 RATIO 09/29/2021 1:04 PM [facility] EGFR NON-AFR. AMER. >90 >90 ML/MIN/1.7 3 M2 09/29/2021 1:04 PM [facility] EGFR AFR. AMER. >90 >90 ML/MIN/1.7 3 M2 09/29/2021 1:04 PM [facility] Comment: NOTE: eGFR is not calculated for patients <18 years of age. This is an estimated GFR (CKD EPI) and should not be used for calculating drug doses. 09/29/2021 12:3 6 PM CELL TOWER CLIMBER us Aneesh Mesa MD LABORATORY Final Result [facility] [address] [place] [phone], * (ABNORMAL) CBC W/DIFF AUTOMATED (09/29/2021 12:36 PM CELL TOWER CLIMBER) WBC 6.5 4.4 - 11.0 x10'3/uL 09/29/2021 12:44 PM [facility] RBC 3.91(L) 4.50 - 5.90 x10'6/uL 09/29/2021 12:44 PM [facility] HGB 12.6(L) 14.0 - 17.5 G/DL 09/29/2021 12:44 PM [facility] HCT 37.4(L) 41.5 - 50.4 % 09/29/2021 12:44 PM [facility] MCV 95.7 80.0 - 96.0 FL 09/29/2021 12:44 PM [facility] MCH 32.2(H) 26.5 - 31.4 PG 09/29/2021 12:44 PM [facility] MCHC 33.7 31.9 - 34.8 G/DL 09/29/2021 12:44 PM [facility] RDW 13.2 12.3 - 14.3 % 09/29/2021 12:44 PM [facility] PLT 282 151 - 353 x10'3/uL 09/29/2021 12:44 PM [facility] MPV 9.9 9.7 - 11.9 FL 09/29/2021 12:44 PM [facility] RBC MORPHOLOGY NORMAL 09/29/2021 12:44 PM [facility] PLT MORPH. NORMAL 09/29/2021 12:44 PM [facility] WBC MORPHOLOGY NORMAL 09/29/2021 12:44 PM [facility] LYMPHOCYTES % 21.7 15.8 - 45.0 % 09/29/2021 12:44 PM [facility] NEUTROPHILS % 66.5 42.1 - 71.9 % 09/29/2021 12:44 PM [facility] MONOCYTES % 9.5 5.7 - 12.5 % 09/29/2021 12:44 PM [facility] EOSINOPHILS 1.5 0.0 - 5.6 % 09/29/2021 12:44 PM [facility] BASOPHILS 0.5 0.0 - 1.3 % 09/29/2021 12:44 PM [facility] ABS. NEUTROPHILS 4.33 1.40 - 6.00 x10'3/uL 09/29/2021 12:44 PM [facility] IMMATURE GRANS % 0.3 0.0 - 0.5 % 09/29/2021 12:44 PM [facility] ABS. LYMPHOCYTES 1.41 0.80 - 4.70 x10'3/uL 09/29/2021 12:44 PM [facility] 09/29/2021 12:3 6 PM CE[employer] TOWER CLIMBER us Aneesh Mesa MD LABORATORY Final Result [facility] [address] [place] [address], [place] [phone] * XR ABD KUB (09/29/2021 8:59 AM CELL TOWER CLIMBER) Anatomical Region Laterality Modality Abdomen Radiographic Leola ging 09/29/2021 12:3 2 PM CE[employer] TOWER CLIMBER Impressions 09/29/2021 12:33 PM CE[employer] TOWER CLIMBER FINDINGS IMPRESSION : CHEST: ?? 1. ??The cardiac configuration is normal. Lung bases are clear, within the [id number]. ABDOMEN: 1. ??No free air below the [...] 09/29/2021 12:32 PM Narrative 09/29/2021 12:33 PM CELL TOWER CLIMBER IMAGING STUDIES: ??XR ABD KUB ? DATE: ??09/29/2021 8:36 AM CLINICAL HISTORY: ??ileus ?? . . COMPARISON STUDIES: 11/27/2020. ?? Procedure Note Moncho Cheng MD - 09/29/2021 IMAGING STUDIES: XR ABD KUB DATE: 09/29/2021 8:36 AM CLINICAL HISTORY: ileus . . COMPARISON STUDIES: 11/27/2020. FINDINGS IMPRESSION : CHEST: 1. The cardiac configuration is normal. Lung bases are clear, within [id number]. ABDOMEN: 1. No free air below the [...] * (ABNORMAL) POTASSIUM, SERUM (09/28/2021 6:50 PM CELL TOWER CLIMBER) Pathologist [facility] POTASSIUM S/P/B 3.2(L) 3.5 - 5.1 MMOL/L 09/28/2021 7:17 PM CE[employer] TOWER CLIMBER [facility] 09/28/2021 6:50 PM CE[employer] TOWER CLIMBER Lacey Barkley MD LABORATORY Final Result [facility] [address] [place] [address], [place] [phone] * (ABNORMAL) COMPREHENSIVE METABOLIC PANEL (09/28/2021 9:11 AM CELL TOWER CLIMBER) GLUCOSE 115(H) 70 - 99 MG/DL 09/28/2021 9:54 AM CELL TOWER CLIMBER [facility] BUN 3(L) 7 - 18 MG/DL 09/28/2021 9:54 AM CE[employer] TOWER CLIMBER [facility] CREATININE S/P/B 0.82 0.7 - 1.3 MG/DL 09/28/2021 9:54 AM [facility] SODIUM S/P/B 142 136 - 145 MMOL/L 09/28/2021 9:54 AM [facility] POTASSIUM S/P/B 2.7(LL) 3.5 - 5.1 MMOL/L 09/28/2021 9:54 AM [facility] Comment: AT CALLED CRITICAL RESULTS AT [id number] TO AND READ BACK BY GINA LERMA [facility] CHLORIDE S/P/B 103 100 - 108 MMOL/L 09/28/2021 9:54 AM [facility] CO2 31.3 21 - 32 MMOL/L 09/28/2021 9:54 AM [facility] CALCIUM S/P/B 8.5 8.5 - 10.1 MG/DL 09/28/2021 9:54 AM [facility] BILIRUBIN TOTAL S/P/B 0.7 0.2 - 1.2 MG/DL 09/28/2021 9:54 AM [facility] TOTAL PROTEIN S/P/B 6.4 6.4 - 8.2 G/DL 09/28/2021 9:54 AM [facility] ALBUMIN S/P/B 2.7(L) 3.4 - 5.0 G/DL 09/28/2021 9:54 AM [facility] AST 26 15 - 37 U/L 09/28/2021 9:54 AM [facility] ALT 29 16 - 60 U/L 09/28/2021 9:54 AM [facility] ALKALINE PHOSPHATASE S/P/B 25(L) 50 - 136 U/L 09/28/2021 9:54 AM [facility] ANION GAP 7.7 5 - 15 MMOL/L 09/28/2021 9:54 AM [facility] BUN CREATININE RATIO 3.7(L) 6 - 26 09/28/2021 9:54 AM [facility] A/G RATIO 0.7(L) 1.0 - 2.0 RATIO 09/28/2021 9:54 AM [facility] EGFR NON-AFR. AMER. >90 >90 ML/MIN/1.7 3 M2 09/28/2021 9:54 AM [facility] EGFR AFR. AMER. >90 >90 ML/MIN/1.7 3 M2 09/28/2021 9:54 AM [facility] Comment: NOTE: eGFR is not calculated for patients <18 years of age. This is an estimated GFR (CKD EPI) and should not be used for calculating drug doses. 09/28/2021 9:11 AM [facility] Margarita Sloan MD LABORATORY Final Result [facility] [address] [place] [address], [place] [phone] * (ABNORMAL) CBC W/DIFF AUTOMATED (09/28/2021 9:11 AM CELL TOWER CLIMBER) WBC 6.1 4.4 - 11.0 x10'3/uL 09/28/2021 9:19 AM [facility] RBC 3.92(L) 4.50 - 5.90 x10'6/uL 09/28/2021 9:19 AM [facility] HGB 12.6(L) 14.0 - 17.5 G/DL 09/28/2021 9:19 AM [facility] HCT 36.8(L) 41.5 - 50.4 % 09/28/2021 9:19 AM [facility] MCV 93.9 80.0 - 96.0 FL 09/28/2021 9:19 AM [facility] MCH 32.1(H) 26.5 - 31.4 PG 09/28/2021 9:19 AM [facility] MCHC 34.2 31.9 - 34.8 G/DL 09/28/2021 9:19 AM [facility] RDW 13.0 12.3 - 14.3 % 09/28/2021 9:19 AM [facility] PLT 268 151 - 353 x10'3/uL 09/28/2021 9:19 AM [facility] MPV 10.3 9.7 - 11.9 FL 09/28/2021 9:19 AM [facility] RBC MORPHOLOGY NORMAL 09/28/2021 9:19 AM [facility] PLT MORPH. NORMAL 09/28/2021 9:19 AM [facility] WBC MORPHOLOGY NORMAL 09/28/2021 9:19 AM [facility] LYMPHOCYTES % 21.4 15.8 - 45.0 % 09/28/2021 9:19 AM [facility] NEUTROPHILS % 65.3 42.1 - 71.9 % 09/28/2021 9:19 AM [facility] MONOCYTES % 10.3 5.7 - 12.5 % 09/28/2021 9:19 AM [facility] EOSINOPHILS 2.0 0.0 - 5.6 % 09/28/2021 9:19 AM [facility] BASOPHILS 0.5 0.0 - 1.3 % 09/28/2021 9:19 AM [facility] ABS. NEUTROPHILS 4.01 1.40 - 6.00 x10'3/uL 09/28/2021 9:19 AM [facility] IMMATURE GRANS % 0.5 0.0 - 0.5 % 09/28/2021 9:19 AM CE[employer] TOWER CLIMBER [facility] ABS. LYMPHOCYTES 1.31 0.80 - 4.70 x10'3/uL 09/28/2021 9:19 AM CE[employer] TOWER [employer]BER [facility] 09/28/2021 9:11 AM [employer] Margarita Sloan MD LABORATORY Final Result [facility] [address] [place] [address], [place] [phone] * USE ECHOCARDIOGRAM (09/27/2021 2:34 PM CELL TOWER CLIMBER) Anatomical Region Laterality Modality Cardiac Echocardiogram Lacey Barkley MD ECHO Final Result * XR ABD KUB (09/27/2021 2:27 PM CELL TOWER CLIMBER) Anatomical Region Laterality Modality Abdomen Radiographic Leola ging 09/27/2021 4:08 PM CE[employer] TOWER CLIMBER Impressions 09/27/2021 4:09 PM CE[employer] TOWER CLIMBER FINDINGS IMPRESSION : CHEST: ?? 1. ??The cardiac configuration is normal. Lung bases are clear, within the [id number]. ABDOMEN: 1. ??No free air below the diaphragm. 2. ??Numerous dilated loops of small bowel either secondary to ileus or distal small bowel obstruction 3. ??Surgical changes right upper quadrant and left lower quadrant. Drain in the pelvis. 4. ??Degenerative changes of the lower lumbar spine and hips. Ordered By: MARGARITA SLOAN Interpreted By: Moncho Cheng, 09/27/2021 4:08 PM Narrative 09/27/2021 4:09 PM CE[employer] TOWER CLIMBER IMAGING STUDIES: ??XR ABD KUB ? DATE: [...] is normal. Lung bases are clear, within [id number]. ABDOMEN: 1. No free air below the [...] * ECG 12 lead (09/27/2021 1:42 PM CELL TOWER CLIMBER) 09/27/2021 1:42 PM CELL TOWER CLIMBER Narrative [facility] RAD - 09/27/2021 7:43 PM CELL TOWER CLIMBER ?[facility] ? Test Date: ?2021-09-27 Pat Name: ? MANDIE COTTER ? Department: ? Room: ? 1091 Gender: ? Male ? Head Of Digital: ?? : ?1955 ? Requested By: LACEY BARKLEY Order Number: [id number] ? Reading MD: ?? Ben Diego ? Measurements Intervals ?[place] ? Rate: ? 67 ? P: ?5 AK: ? 111 ?QRS: ?32 QRSD: ? 101 ?T: ?46 QT: ? 392 ? QTc: ?416 ? Interpretive Statements SINUS RHYTHM WITH SHORT AK INTERVAL NONSPECIFIC ST & T-WAVE ABNORMALITY Compared to ECG 09/26/2021 12:44:09 Short AK interval now present Atrial fibrillation no longer present Aberrant conduction of supraventricular beat(s) no longer present Ventricular premature complex(es) no longer present T-wave abnormality still present TOWER CLIMBER Procedure Note Ben Diego MD - 09/27/2021 [facility] Test Date: 2021-09-27 Pat Name: MANDIE COTTER Department: Room: 1091 Gender: Male Head Of Digital: : 1955 Requested By: LACEY BARKLEY Order Number: [id number] Reading MD: Ben Diego Measurements Intervals [place] Rate: 67 P: 5 AK: 111 QRS: 32 QRSD: 101 T: 46 QT: 392 QTc: 416 Interpretive Statements SINUS RHYTHM WITH SHORT AK INTERVAL NONSPECIFIC ST & T-WAVE ABNORMALITY Compared to ECG 09/26/2021 12:44:09 Short AK interval now present Atrial fibrillation no longer present Aberrant conduction of supraventricular beat(s) no longer present Ventricular premature complex(es) no longer present T-wave abnormality still present TOWER CLIMBER us Lacey Barkley MD ECG ORDERABLES Final Result [facility] * (ABNORMAL) COMPREHENSIVE METABOLIC PANEL (09/27/2021 8:27 AM CELL TOWER CLIMBER) [facility] GLUCOSE 140(H) 70 - 99 MG/DL 09/27/2021 9:10 AM [facility] BUN 5(L) 7 - 18 MG/DL 09/27/2021 9:10 AM [facility] CREATININE S/P/B 0.78 0.7 - 1.3 MG/DL 09/27/2021 9:10 AM [facility] SODIUM S/P/B 142 136 - 145 MMOL/L 09/27/2021 9:10 AM [facility] POTASSIUM S/P/B 3.5 3.5 - 5.1 MMOL/L 09/27/2021 9:10 AM [facility] CHLORIDE S/P/B 104 100 - 108 MMOL/L 09/27/2021 9:10 AM [facility] CO2 30.4 21 - 32 MMOL/L 09/27/2021 9:10 AM [facility] CALCIUM S/P/B 8.6 8.5 - 10.1 MG/DL 09/27/2021 9:10 AM [facility] BILIRUBIN TOTAL S/P/B 0.9 0.2 - 1.2 MG/DL 09/27/2021 9:10 AM [facility] TOTAL PROTEIN S/P/B 6.7 6.4 - 8.2 G/DL 09/27/2021 9:10 AM [facility] ALBUMIN S/P/B 3.1(L) 3.4 - 5.0 G/DL 09/27/2021 9:10 AM [facility] AST 30 15 - 37 U/L 09/27/2021 9:10 AM [facility] ALT 24 16 - 60 U/L 09/27/2021 9:10 AM [facility] ALKALINE PHOSPHATASE S/P/B 24(L) 50 - 136 U/L 09/27/2021 9:10 AM [facility] ANION GAP 7.6 5 - 15 MMOL/L 09/27/2021 9:10 AM [facility] BUN CREATININE RATIO 6.4 6 - 26 09/27/2021 9:10 AM [facility] A/G RATIO 0.9(L) 1.0 - 2.0 RATIO 09/27/2021 9:10 AM [facility] EGFR NON-AFR. AMER. >90 >90 ML/MIN/1.7 3 M2 09/27/2021 9:10 AM [facility] EGFR AFR. AMER. >90 >90 ML/MIN/1.7 3 M2 09/27/2021 9:10 AM [facility] Comment: NOTE: eGFR is not calculated for patients <18 years of age. This is an estimated GFR (CKD EPI) and should not be used for calculating drug doses. 09/27/2021 8:27 AM CE[facility] [employer] [employer]BER Margarita Sloan MD LABORATORY Final Result [facility] [address] [place] [address], [place] [phone] * (ABNORMAL) CBC W/DIFF AUTOMATED (09/27/2021 8:27 AM CELL TOWER CLIMBER) WBC 7.0 4.4 - 11.0 x10'3/uL 09/27/2021 8:56 AM [facility] RBC 4.13(L) 4.50 - 5.90 x10'6/uL 09/27/2021 8:56 AM [facility] HGB 13.4(L) 14.0 - 17.5 G/DL 09/27/2021 8:56 AM [facility] HCT 39.5(L) 41.5 - 50.4 % 09/27/2021 8:56 AM [facility] MCV 95.6 80.0 - 96.0 FL 09/27/2021 8:56 AM [facility] MCH 32.4(H) 26.5 - 31.4 PG 09/27/2021 8:56 AM [facility] MCHC 33.9 31.9 - 34.8 G/DL 09/27/2021 8:56 AM [facility] RDW 13.2 12.3 - 14.3 % 09/27/2021 8:56 AM [facility] PLT 267 151 - 353 x10'3/uL 09/27/2021 8:56 AM [facility] MPV 11.6 9.7 - 11.9 FL 09/27/2021 8:56 AM [facility] RBC MORPHOLOGY NORMAL 09/27/2021 8:56 AM [facility] PLT MORPH. NORMAL 09/27/2021 8:56 AM [facility] WBC MORPHOLOGY NORMAL 09/27/2021 8:56 AM [facility] LYMPHOCYTES % 22.4 15.8 - 45.0 % 09/27/2021 8:56 AM [facility] NEUTROPHILS % 66.3 42.1 - 71.9 % 09/27/2021 8:56 AM [facility] MONOCYTES % 8.3 5.7 - 12.5 % 09/27/2021 8:56 AM [facility] EOSINOPHILS 2.3 0.0 - 5.6 % 09/27/2021 8:56 AM [facility] BASOPHILS 0.6 0.0 - 1.3 % 09/27/2021 8:56 AM [facility] ABS. NEUTROPHILS 4.61 1.40 - 6.00 x10'3/uL 09/27/2021 8:56 AM [facility] IMMATURE GRANS % 0.1 0.0 - 0.5 % 09/27/2021 8:56 AM [facility] ABS. LYMPHOCYTES 1.56 0.80 - 4.70 x10'3/uL 09/27/2021 8:56 AM CELL TOWER CLIMBER [facility] 09/27/2021 8:27 AM CE[employer]OWER [employer]IMBER Margarita Sloan MD LABORATORY Final Result Performing Organization Address [facility]/State/ZIP Co de Phone Number [facility] [address] [place] [address], * ECG 12 lead (09/26/2021 12:44 PM CELL TOWER CLIMBER) 09/26/2021 12:4 4 PM CELL TOWER CLIMBER Narrative [facility] - 09/26/2021 9:49 PM CELL TOWER CLIMBER ?[facility] ? Test Date: ?2021-09-26 Pat Name: ? MANDIE COTTER ? Department: ? Room: ? 1091 Gender: ? Male ? Head Of Digital: ?? : ?1955 ? Requested By: LACEY Bowers Number: [id number] ? Reading : ?? Toño Lovett ? Measurements Intervals ?[place] ? Rate: ? 127 ?P: ? AK: ? 0 ?QRS: ?9 QRSD: ? 91 [...] now present Sinus rhythm no longer present TOWER CLIMBER Procedure Note Toño Lovett MD - 09/26/2021 [facility] Test Date: 2021-09-26 Pat Name: MANDIE COTTER Department: Room: 1091 Gender: Male Head Of Digital: : 1955 Requested By: LACEY BARKLEY Order Number: [id number] Reading MD: Toño Lovett Measurements Intervals [place] Rate: 127 P: AK: 0 QRS: 9 QRSD: 91 T: 32 QT: 306 QTc: 445 Interpretive Statements ATRIAL FIBRILLATION WITH RAPID VENTRICULAR RESPONSE WITH ABERRANTCONDUCTION OR VENTRICULAR PREMATURE COMPLEXES NONSPECIFIC ST & T-WAVE ABNORMALITY ABNORMAL RHYTHM ECG Compared to ECG 09/24/2021 12:41:26 Ventricular premature complex(es) now present Aberrant conduction of supraventricular beat(s) now present T-wave abnormality now present Sinus rhythm no longer present TOWER CLIMBER us Lacey Barkley MD ECG ORDERABLES Final Result [facility] * (ABNORMAL) COMPREHENSIVE METABOLIC PANEL (09/25/2021 6:40 AM CELL TOWER CLIMBER) GLUCOSE 104(H) 70 - 99 MG/DL 09/25/2021 7:06 AM [facility] BUN 11 7 - 18 MG/DL 09/25/2021 7:06 AM [facility] CREATININE S/P/B 0.74 0.7 - 1.3 MG/DL 09/25/2021 7:06 AM [facility] SODIUM S/P/B 144 136 - 145 MMOL/L 09/25/2021 7:06 AM [facility] POTASSIUM S/P/B 4.4 3.5 - 5.1 MMOL/L 09/25/2021 7:06 AM [facility] CHLORIDE S/P/B 109(H) 100 - 108 MMOL/L 09/25/2021 7:06 AM [facility] CO2 25.6 21 - 32 MMOL/L 09/25/2021 7:06 AM [facility] CALCIUM S/P/B 8.5 8.5 - 10.1 MG/DL 09/25/2021 7:06 AM [facility] BILIRUBIN TOTAL S/P/B 1.2 0.2 - 1.2 MG/DL 09/25/2021 7:06 AM [facility] TOTAL PROTEIN S/P/B 6.7 6.4 - 8.2 G/DL 09/25/2021 7:06 AM [facility] ALBUMIN S/P/B 3.0(L) 3.4 - 5.0 G/DL 09/25/2021 7:06 AM [facility] AST 25 15 - 37 U/L 09/25/2021 7:06 AM [facility] ALT 26 16 - 60 U/L 09/25/2021 7:06 AM [facility] ALKALINE PHOSPHATASE S/P/B 29(L) 50 - 136 U/L 09/25/2021 7:06 AM [facility] ANION GAP 9.4 5 - 15 MMOL/L 09/25/2021 7:06 AM [facility] BUN CREATININE RATIO 14.9 6 - 26 09/25/2021 7:06 AM [facility] A/G RATIO 0.8(L) 1.0 - 2.0 RATIO 09/25/2021 7:06 AM [facility] EGFR NON-AFR. AMER. >90 >90 ML/MIN/1.7 3 M2 09/25/2021 7:06 AM [facility] EGFR AFR. AMER. >90 >90 ML/MIN/1.7 3 M2 09/25/2021 7:06 AM [facility] Comment: NOTE: eGFR is not calculated for patients <18 years of age. This is an estimated GFR (CKD EPI) and should not be used for calculating drug doses. 09/25/2021 6:40 AM CELL TOWER CLIMBER Porsche Lord NP LABORATORY Final Result [facility] [address] [place] [address], * (ABNORMAL) CBC W/DIFF AUTOMATED (09/25/2021 6:40 AM CELL TOWER CLIMBER) WBC 8.7 4.4 - 11.0 x10'3/uL 09/25/2021 6:52 AM CELL TOWER CLIMBER [facility] RBC 4.11(L) 4.50 - 5.90 x10'6/uL 09/25/2021 6:52 AM [facility] HGB 13.2(L) 14.0 - 17.5 G/DL 09/25/2021 6:52 AM [facility] HCT 39.9(L) 41.5 - 50.4 % 09/25/2021 6:52 AM [facility] MCV 97.1(H) 80.0 - 96.0 FL 09/25/2021 6:52 AM [facility] MCH 32.1(H) 26.5 - 31.4 PG 09/25/2021 6:52 AM [facility] MCHC 33.1 31.9 - 34.8 G/DL 09/25/2021 6:52 AM [facility] RDW 13.1 12.3 - 14.3 % 09/25/2021 6:52 AM [facility] PLT 229 151 - 353 x10'3/uL 09/25/2021 6:52 AM [facility] MPV 10.5 9.7 - 11.9 FL 09/25/2021 6:52 AM [facility] RBC MORPHOLOGY NORMAL 09/25/2021 6:52 AM [facility] PLT MORPH. NORMAL 09/25/2021 6:52 AM [facility] WBC MORPHOLOGY NORMAL 09/25/2021 6:52 AM [facility] LYMPHOCYTES % 14.2(L) 15.8 - 45.0 % 09/25/2021 6:52 AM [facility] NEUTROPHILS % 76.9(H) 42.1 - 71.9 % 09/25/2021 6:52 AM [facility] MONOCYTES % 7.3 5.7 - 12.5 % 09/25/2021 6:52 AM [facility] EOSINOPHILS 0.6 0.0 - 5.6 % 09/25/2021 6:52 AM [facility] BASOPHILS 0.5 0.0 - 1.3 % 09/25/2021 6:52 AM [facility] ABS. NEUTROPHILS 6.67(H) 1.40 - 6.00 x10'3/uL 09/25/2021 6:52 AM [facility] IMMATURE GRANS % 0.5 0.0 - 0.5 % 09/25/2021 6:52 AM [facility] ABS. LYMPHOCYTES 1.23 0.80 - 4.70 x10'3/uL 09/25/2021 6:52 AM [facility] 09/25/2021 6:40 AM [facility] [employer]IMBER us Porsche Lord NP LABORATORY Final Result [facility] [address] [place] [address], * XR CHEST PORTABLE (09/24/2021 3:19 PM CELL [facility]OWER CLIMBER) Anatomical Region Laterality Modality Chest Radiographic Leola ging 09/24/2021 3:23 PM [facility] [employer]BER Impressions 09/24/2021 3:24 PM [facility] FINDINGS AND IMPRESSION: CHEST: 1. ??The cardiomediastinal [...] bowel noted at the margin of the [id number] Ordered By: MARGARITA SLOAN Interpreted By: Moncho Cheng, 09/24/2021 3:23 PM Narrative 09/24/2021 3:24 PM [facility]BER IMAGING STUDIES: ??XR CHEST PORTABLE ? EXAM [...] bowel noted at the margin of the [id number] Ordered By: MARGARITA SLOAN Interpreted By: Moncho Cheng, 09/24/2021 3:23 PM us Margarita Sloan MD GENERAL IMAGING Final Result * (ABNORMAL) GASTRIC OCCULT BLOOD (09/24/2021 3:00 PM CE[facility]OWER [facility]IMBER) GASTRIC OCCULT BLOOD POSITIVE(A ) NEGATIVE 09/24/2021 3:36 PM [facility] PH GASTRIC 7 1.3 - 7.8 09/24/2021 3:36 PM [facility]OWER [facility]BER [facility] 09/24/2021 3:00 PM [employer]OWER [employer]BER Margarita Sloan MD BODY FLUIDS AND STOOLS ORDER ZAMZAM Final Result Performing Organization Address City/State/[facility] de Phone Number [facility] [address] [place] [address], * ECG 12 lead (09/24/2021 12:41 PM CE[facility] [employer]OWER CLIMBER) 09/24/2021 12:4 1 PM [facility]BER Narrative [facility] - 09/26/2021 9:09 AM CE[facility]OWER [facility]IMBER ?[facility] ? Test Date: ?2021-09-24 Pat Name: ? MANDIE COTTER ? Department: ? Room: ? 109 Gender: ? Male ? Head Of Digital: ?? : ?1955 ? Requested By: PORSCHE LORD Order Number: [id number] ? Reading MD: ?? Toño Lovett ? Measurements Intervals ?[place] ? Rate: ? 93 ? P: ?30 AK: ? 136 ?QRS: ?13 QRSD: ? 98 ? T: ?53 QT: ? 353 ? QTc: ?439 ? Interpretive Statements SINUS RHYTHM Compared to ECG 03/18/2021 10:08:00 T-wave abnormality no longer present [facility]OWER [facility]IMBER Procedure Note Toño Lovett MD - 09/26/2021 [facility] Test Date: 2021-09-24 Pat Name: MANDIE COTTER Department: Room: 109 Gender: Male Head Of Digital: : 1955 Requested By: PORSCHE LORD Order Number: [id number] Reading MD: Toño Lovett Measurements Intervals [place] Rate: 93 P: 30 AK: 136 QRS: 13 QRSD: 98 T: 53 QT: 353 QTc: 439 Interpretive Statements SINUS RHYTHM Compared to ECG 03/18/2021 10:08:00 T-wave abnormality no longer present TOWER CLIMBER us Porsche Lord CHANGE CONTROL ANALYST ECG ORDERABLES Final Result [facility] * (ABNORMAL) COMPREHENSIVE METABOLIC PANEL (09/24/2021 6:08 AM CE[facility]OWER CLIMBER) [facility] Signature GLUCOSE 98 70 - 99 MG/DL 09/24/2021 6:49 AM [facility] BUN 12 7 - 18 MG/DL 09/24/2021 6:49 AM [facility] CREATININE S/P/B 0.79 0.7 - 1.3 MG/DL 09/24/2021 6:49 AM [facility] SODIUM S/P/B 142 136 - 145 MMOL/L 09/24/2021 6:49 AM [facility] POTASSIUM S/P/B 4.0 3.5 - 5.1 MMOL/L 09/24/2021 6:49 AM [facility] CHLORIDE S/P/B 106 100 - 108 MMOL/L 09/24/2021 6:49 AM [facility] CO2 24.5 21 - 32 MMOL/L 09/24/2021 6:49 AM [facility] CALCIUM S/P/B 8.4(L) 8.5 - 10.1 MG/DL 09/24/2021 6:49 AM [facility] BILIRUBIN TOTAL S/P/B 1.6(H) 0.2 - 1.2 MG/DL 09/24/2021 6:49 AM [facility] TOTAL PROTEIN S/P/B 6.6 6.4 - 8.2 G/DL 09/24/2021 6:49 AM [facility] ALBUMIN S/P/B 3.2(L) 3.4 - 5.0 G/DL 09/24/2021 6:49 AM [facility] AST 25 15 - 37 U/L 09/24/2021 6:49 AM [facility] ALT 27 16 - 60 U/L 09/24/2021 6:49 AM [facility] ALKALINE PHOSPHATASE S/P/B 37(L) 50 - 136 U/L 09/24/2021 6:49 AM [facility] ANION GAP 11.5 5 - 15 MMOL/L 09/24/2021 6:49 AM [facility] BUN CREATININE RATIO 15.2 6 - 26 09/24/2021 6:49 AM [facility] A/G RATIO 0.9(L) 1.0 - 2.0 RATIO 09/24/2021 6:49 AM [facility] EGFR NON-AFR. AMER. >90 >90 ML/MIN/1.7 3 M2 09/24/2021 6:49 AM [facility] EGFR AFR. AMER. >90 >90 ML/MIN/1.7 3 M2 09/24/2021 6:49 AM [facility] Comment: NOTE: eGFR is not calculated for patients <18 years of age. This is an estimated GFR (CKD EPI) and should not be used for calculating drug doses. 09/24/2021 6:08 AM [facility]BER Porsche Lord NP LABORATORY Final Result [facility] [address] [place] [address], * (ABNORMAL) CBC W/DIFF AUTOMATED (09/24/2021 6:08 AM CELL TOWER CLIMBER) WBC 9.2 4.4 - 11.0 x10'3/uL 09/24/2021 6:30 AM [facility] RBC 4.13(L) 4.50 - 5.90 x10'6/uL 09/24/2021 6:30 AM [facility] HGB 13.4(L) 14.0 - 17.5 G/DL 09/24/2021 6:30 AM [facility] HCT 39.8(L) 41.5 - 50.4 % 09/24/2021 6:30 AM [facility] MCV 96.4(H) 80.0 - 96.0 FL 09/24/2021 6:30 AM [facility] MCH 32.4(H) 26.5 - 31.4 PG 09/24/2021 6:30 AM [facility] MCHC 33.7 31.9 - 34.8 G/DL 09/24/2021 6:30 AM [facility] RDW 13.0 12.3 - 14.3 % 09/24/2021 6:30 AM [facility] PLT 233 151 - 353 x10'3/uL 09/24/2021 6:30 AM [facility] MPV 10.4 9.7 - 11.9 FL 09/24/2021 6:30 AM [facility] RBC MORPHOLOGY NORMAL 09/24/2021 6:30 AM [facility] PLT MORPH. NORMAL 09/24/2021 6:30 AM [facility] WBC MORPHOLOGY NORMAL 09/24/2021 6:30 AM [facility] LYMPHOCYTES % 16.7 15.8 - 45.0 % 09/24/2021 6:30 AM [facility] NEUTROPHILS % 72.9(H) 42.1 - 71.9 % 09/24/2021 6:30 AM [facility] MONOCYTES % 9.5 5.7 - 12.5 % 09/24/2021 6:30 AM [facility] EOSINOPHILS 0.3 0.0 - 5.6 % 09/24/2021 6:30 AM [facility] BASOPHILS 0.4 0.0 - 1.3 % 09/24/2021 6:30 AM [facility] ABS. NEUTROPHILS 6.66(H) 1.40 - 6.00 x10'3/uL 09/24/2021 6:30 AM [facility] IMMATURE GRANS % 0.2 0.0 - 0.5 % 09/24/2021 6:30 AM [facility] ABS. LYMPHOCYTES 1.53 0.80 - 4.70 x10'3/uL 09/24/2021 6:30 AM [facility] 09/24/2021 6:08 AM [facility] [employer]BER Porsche Lord NP LABORATORY Final Result [facility] [address] [place] [address], [place] [phone] * (ABNORMAL) CBC W/DIFF AUTOMATED (09/23/2021 5:45 AM CE[facility]OWER CLIMBER) [facility] WBC 8.1 4.4 - 11.0 x10'3/uL 09/23/2021 6:09 AM [facility] RBC 4.03(L) 4.50 - 5.90 x10'6/uL 09/23/2021 6:09 AM [facility] HGB 12.8(L) 14.0 - 17.5 G/DL 09/23/2021 6:09 AM [facility] HCT 38.1(L) 41.5 - 50.4 % 09/23/2021 6:09 AM [facility] MCV 94.5 80.0 - 96.0 FL 09/23/2021 6:09 AM [facility] MCH 31.8(H) 26.5 - 31.4 PG 09/23/2021 6:09 AM [facility] MCHC 33.6 31.9 - 34.8 G/DL 09/23/2021 6:09 AM [facility] RDW 12.9 12.3 - 14.3 % 09/23/2021 6:09 AM [facility] PLT 221 151 - 353 x10'3/uL 09/23/2021 6:09 AM [facility] MPV 10.6 9.7 - 11.9 FL 09/23/2021 6:09 AM [facility] RBC MORPHOLOGY NORMAL 09/23/2021 6:09 AM [facility] PLT MORPH. NORMAL 09/23/2021 6:09 AM [facility] WBC MORPHOLOGY NORMAL 09/23/2021 6:09 AM [facility] LYMPHOCYTES % 17.9 15.8 - 45.0 % 09/23/2021 6:09 AM [facility] NEUTROPHILS % 70.9 42.1 - 71.9 % 09/23/2021 6:09 AM [facility] MONOCYTES % 10.3 5.7 - 12.5 % 09/23/2021 6:09 AM [facility] EOSINOPHILS 0.1 0.0 - 5.6 % 09/23/2021 6:09 AM [facility] BASOPHILS 0.4 0.0 - 1.3 % 09/23/2021 6:09 AM [facility] ABS. NEUTROPHILS 5.71 1.40 - 6.00 x10'3/uL 09/23/2021 6:09 AM [facility] IMMATURE GRANS % 0.4 0.0 - 0.5 % 09/23/2021 6:09 AM [facility] ABS. LYMPHOCYTES 1.44 0.80 - 4.70 x10'3/uL 09/23/2021 6:09 AM [facility] 09/23/2021 5:45 AM [facility] Margarita Sloan MD LABORATORY Final Result [facility] [address] [place] [address], * (ABNORMAL) COMPREHENSIVE METABOLIC PANEL (09/23/2021 5:45 AM [facility]BER) GLUCOSE 102(H) 70 - 99 MG/DL 09/23/2021 6:23 AM [facility] BUN 10 7 - 18 MG/DL 09/23/2021 6:23 AM [facility] CREATININE S/P/B 0.97 0.7 - 1.3 MG/DL 09/23/2021 6:23 AM [facility] SODIUM S/P/B 141 136 - 145 MMOL/L 09/23/2021 6:23 AM [facility] POTASSIUM S/P/B 4.1 3.5 - 5.1 MMOL/L 09/23/2021 6:23 AM [facility] CHLORIDE S/P/B 106 100 - 108 MMOL/L 09/23/2021 6:23 AM [facility] CO2 26.5 21 - 32 MMOL/L 09/23/2021 6:23 AM [facility] CALCIUM S/P/B 8.0(L) 8.5 - 10.1 MG/DL 09/23/2021 6:23 AM [facility] BILIRUBIN TOTAL S/P/B 1.3(H) 0.2 - 1.2 MG/DL 09/23/2021 6:23 AM [facility] TOTAL PROTEIN S/P/B 5.9(L) 6.4 - 8.2 G/DL 09/23/2021 6:23 AM [facility] ALBUMIN S/P/B 3.1(L) 3.4 - 5.0 G/DL 09/23/2021 6:23 AM [facility] AST 22 15 - 37 U/L 09/23/2021 6:23 AM [facility] ALT 29 16 - 60 U/L 09/23/2021 6:23 AM [facility] ALKALINE PHOSPHATASE S/P/B 37(L) 50 - 136 U/L 09/23/2021 6:23 AM [facility] ANION GAP 8.5 5 - 15 MMOL/L 09/23/2021 6:23 AM [facility] BUN CREATININE RATIO 10.3 6 - 26 09/23/2021 6:23 AM [facility] A/G RATIO 1.1 1.0 - 2.0 RATIO 09/23/2021 6:23 AM [facility] EGFR NON-AFR. AMER. 80(L) >90 ML/MIN/1.7 3 M2 09/23/2021 6:23 AM [facility] EGFR AFR. AMER. >90 >90 ML/MIN/1.7 3 M2 09/23/2021 6:23 AM [facility] Comment: NOTE: eGFR is not calculated for patients <18 years of age. This is an estimated GFR (CKD EPI) and should not be used for calculating drug doses. 09/23/2021 5:45 AM CE[facility]OWER CLIMBER Margarita Sloan MD LABORATORY Final Result Performing Organization Address [facility] Co de Phone Number [facility] [address] [place] [address], [place] [phone] * TYPE & SCREEN (09/22/2021 6:30 AM CE[facility] TOWER CLIMBER) ABO/RH O POSITIVE 09/22/2021 6:51 AM [facility] TOWER [facility]BER [facility] ANTIBODY SCREEN NEGATIVE 09/22/2021 7:14 AM [facility] SAMPLE EXPIRATION 09/25/2021,2 359 09/22/2021 6:51 AM [facility] 09/22/2021 6:30 AM [facility]BER Margarita Sloan MD BLOOD BANK TEST ORDERABLES F inal Result Performing Organization Address City/[facility]/ZIP Co de Phone Number [facility] [address] [place] [address], * Pathology (09/22/2021 12:00 AM CE[facility] TOWER CLIMBER) PATHOLOGY [facility] ? Department of Laboratory Medicine ?[address] ?[place] [address] ? , extension [phone] ? Pathology Report ? Surgical Pathology Report Name: MANDIE COTTER ? Specimen #: [id number] Age: 9 1955 (Age: 66) ?Location: [id number] Sex: M ?Procedure Date: 09/22/2021 Hospital #: [id number] ?Date Received: 09/23/2021 Date Reported: 09/24/2021 Provider: [...] erythematous and no discrete lesions are identified. ??Nutrition Representative tissue is submitted in cassette A1. ??The second piece of tissue is 3 x 1.5 x 1 cm. ??It is also erythematous. ??Sections reveal disrupted bowel tissue with no discrete lesions noted grossly. ??Nutrition Representative tissue is submitted in cassette A2. B) Received in formalin, labeled with a patient label and as anastomotic donuts is a 1.8 cm diameter, 1.0 cm long portion of bowel tissue with multiple sutures and senthil. ??The tissue is erythematous but no discrete lesions are noted on section. ??Nutrition Representative tissue is submitted in cassette B1. FINAL DIAGNOSIS: A) PROXIMAL/DESCEND ING COLOSTOMY, RESECTION: ? - COLOSTOMY WITHOUT DIAGNOSTIC ABNORMALITY. B) COLON, ANASTOMOTIC DONUTS, EXCISION: ? - COLONIC TISSUE WITHOUT DIAGNOSTIC ABNORMALITY. Electronically Signed Out ? Jay Cabezas M.D. [facility] Tissue specimen (specimen) COLON STRUCTURE / Unknown 09/22/2021 1:00 PM [facility]BER Comment:Reverse ostomy Tissue specimen (specimen) COLON STRUCTURE / Unknown 09/22/2021 2:00 PM CE[facility]OWER [facility]IMBER us Margarita Sloan MD PATHOLOGY/CYTOLOGY ORDERABLE S Final Result [facility] [address] [place] [address], [id number] documented in this encounter Visit Diagnoses Diagnosis S/P laparoscopic procedure- Primary Other postprocedural status Colostomy in place ([facility]) Colostomy status documented in this encounter Admitting [...] (TYLENOL) tablet 1,000 mg 1,000 mg, Oral, 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.R., 1 dose, First dose on Mon09/22/21 at 0630, Maximum dose of acetaminophen is 4000 mg from all sources in 24 hours., Pre-OpIndications:Colostomy in place ([facility]) Given 09/22/2021 6:49 AM CE[facility] TOWER CLIMBER 1,000 mg amLODIPine (NORVASC) tablet 5 mg 5 mg, Oral, Daily, First dose on 09/27/21 at 1645, Until Discontinued Given 10/02/2021 8:26 AM [facility]OWER [facility]BER 5 mg Given 10/01/2021 8:04 AM [facility]OWER [facility]BER 5 mg Given 09/30/2021 8:41 AM [facility] [facility]OWER CL[employer]BER 5 mg atorvastatin (LIPITOR) tablet 40 mg 40 mg, Oral, Nightly at bedtime, First dose on Yamilex 09/23/21 at 2100, Until Discontinued, TAKE 1 TABLET NIGHTLY AT BEDTIME- CHANGE FROM PRAVASTATIN LOW DENSITY LIPOPROTEIN CHOLESTEROL NOT TO GOAL Given 09/23/2021 8:13 PM [facility]BER 40 mg ceFAZolin (ANCEF) 2 g in sterile water 20 mL IV 2 g, Intravenous, at 240 mL/hr, director call center sales, 1 dose, On Mon09/22/21 at 0630, Give 2 gram dose for patients less than 120 kg. Give within 60 minutes of surgical incision., Pre-OpIndications:Colostomy in place ([facility]) Given 09/22/2021 8:52 AM CE[facility]OWER [facility]BER 2 g 240 mL/ hr ceFAZolin (ANCEF) 2 g in sterile water 20 mL IV 2 g, Intravenous, at 240 mL/hr, Once, 1 dose, On Mon09/22/21 at 1400 Given 09/22/2021 1:34 PM [facility]BER 2 g 240 mL/hr celecoxib (CeleBREX) capsule 200 mg 200 mg, Oral, Once, 1 dose, On Mon09/22/21 at 0630, Administer 1 hour prior to surgery 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.R., Pre-OpIndications:Colostomy in place ([facility]) Given 09/22/2021 7:18 AM [facility]OWER CLIMBER 200 mg dextrose 5 % and 0.45 % NaCl with KCl 40 mEq infusion at 125 mL/hr, Intravenous, Continuous, Starting on Mon09/28/21 at 1030, Until 10/02/21 at 1052 New Bag 10/02/2021 12:35 AM [facility]OWER [facility]BER 125 mL/hr New Bag 10/01/2021 5:14 PM CE[employer] TOWER CLIMBER 125 mL/hr New Bag 10/01/2021 9:23 AM CE[employer] TOWER CLIMBER 125 mL/hr dextrose 5 %-sodium chloride 0.45 % infusion at 125 mL/hr, Intravenous, Continuous, Starting on Mon09/27/21 at 1600, Until Mon09/28/21 at 1003 New Bag 09/28/2021 3:58 AM [facility] TOWER CL[facility]BER 125 mL/hr Rate/Dose Change 09/28/2021 12:52 AM CE[facility] TOWER CLIMBER 125 mL /hr New Bag 09/27/2021 4:14 PM [facility] TOWER CLIMBER 50 mL/hr digoxin (LANOXIN) injection 250 mcg 250 mcg, Intravenous, Once, 1 dose, On Mon09/26/21 at 1715, Administer slowly over at least 5 minutes. For loading (digitalizing) doses, patient must be on telemetry. Given 09/26/2021 5:23 PM CE[facility] TOWER CLIMBER 250 mcg diphenhydrAMINE (BENADRYL) injection 25 mg [...] Day #1, Post-Op Given 09/24/2021 8:28 AM CE[facility] TOWER CLIMBER 100 mg Given 09/23/2021 8:13 PM CE[employer] TOWER CLIMBER 100 mg enoxaparin (LOVENOX) 40 MG/0.4ML syringe 40 mg 40 mg, Subcutaneous, Every 24 hours, First dose on Yamilex 09/23/21 at 1600, Until Discontinued, Administer by deep SubQ injection alternating between the left or right anterolateral and left or right posterolateral abdominal wall., Post-Op Given 10/01/2021 4:01 PM CE[facility] TOWER CLIMBER 40 mg Left Lower Abdomen Given 09/30/2021 3:44 PM CE[employer] TOWER CLIMBER 40 mg Le ft Lower Abdomen Given 09/29/2021 4:12 PM CE[employer] TOWER CLIMBER 40 mg Ri ght Lower Abdomen famotidine (PEPCID) injection 20 mg 20 mg, Intravenous, Once, 1 dose, On Mon09/22/21 at 0630, On admission IV Push over 2 minutes, Pre-Op Given 09/22/2021 7:01 AM CE[facility] TOWER CLIMBER 20 mg famotidine (PEPCID) injection 20 mg 20 mg, Intravenous, Once, 1 dose, On Mon09/24/21 at 1200, IV Push over 2 minutes Given 09/24/2021 11:51 AM [facility] [facility]OWER CLIMBER 20 mg fentaNYL (SUBLIMAZE) injection 50 mcg [...] dosing interval., PACU Given 09/22/2021 3:27 PM CE[employer] TOWER CLIMBER 50 mcg Given 09/22/2021 3:03 PM [facility] [facility]OWER CLIMBER 50 mcg gabapentin (NEURONTIN) capsule 600 mg 600 mg, Oral, 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.R., 1 dose, First dose on Mon09/22/21 at 0630, Pre-OpIndications:Colostomy in place ([facility]) Given 09/22/2021 6:49 AM [facility]OWER [facility]BER 600 mg HYDROcodone-acetaminophen (NORCO) 5-325 MG tablet 1 tablet 1 tablet, Oral, Every 4 hours PRN, Moderate pain (Scale 4 - 7), Starting on Yamilex 09/23/21 at 1200, Until 10/02/21 at 1701, Administer as Analgesic choice number moderate., Post-Op Given 09/24/2021 8:27 AM CE[facility] TOWER CLIMBER 1 tablet Given 09/23/2021 11:23 PM CE[facility] TOWER CLIMBER 1 tablet HYDROmorphone (DILAUDID) injection 0.5 mg [...] oral analgesic, Post-Op Given 09/24/2021 3:16 AM CE[employer] TOWER CLIMBER 1 mg Given 09/23/2021 9:19 PM CE[employer] TOWER CL[employer]BER 1 mg Given 09/23/2021 2:36 AM CE[employer] TOWER CLIMBER 1 mg ketorolac (TORADOL) injection 15 mg 15 mg, Intravenous, Every 8 hours, 3 doses, First dose on Mon09/22/21 at 1630, Last dose on Yamilex 09/23/21 at 0830, For IV administration, give over 15 seconds., Post-Op Given 09/23/2021 9: 25 AM CE[facility] TOWER CLIMBER 15 mg Given 09/23/2021 12:01 AM CE[employer] TOWER CLIMBER 15 mg Given 09/22/2021 4:43 PM [facility] [facility]OWER CL[employer]BER 15 mg ketorolac (TORADOL) injection 15 mg 15 mg, Intravenous, Every 6 hours PRN, Moderate pain (Scale 4 - 7), Starting on Yamilex 09/23/21 at 1602, Until 09/26/21 at 1601, Use as first choice before narcotics, Post-Op Given 09/23/2021 4:36 PM CE[employer] TOWER CLIMBER 15 mg lactated ringers infusion at 100 mL/hr, Intravenous, Continuous, Starting on Mon09/22/21 at 0630, Until Mon09/22/21 at 1613, Pre-OpIndications:Colostomy in place ([facility]) New Bag 09/22/2021 10:58 AM CE[facility] TOWER CLIMBER New Bag 09/22/2021 9:30 AM CE[facility] TOWER CLIMBER Restarted 09/22/2021 9:03 AM CE[facility] TOWER CLIMBER metoclopramide (REGLAN) injection 10 mg 10 mg, Intravenous, Every 6 hours PRN, Nausea, Vomiting, Starting on Mon09/22/21 at 1607, Until Mon09/27/21 at 0807, If no relief from ondansetron (Zofran), Discontinue IV Reglan once able to take PO, Post-Op Given 09/24/2021 9:49 AM CE[facility] TOWER CLIMBER 10 mg metoclopramide (REGLAN) injection 10 mg 10 mg, Intravenous, Every 6 hours, First dose (after last modification) on Mon09/27/21 at 0900, Until Discontinued, Discontinue IV Reglan once able to take PO, Post-Op Given 10/02/2021 8:25 AM CE[facility] TOWER CL[facility]BER 10 mg Given 10/02/2021 3:02 AM CE[employer] TOWER CLIMBER 10 mg Given 10/01/2021 9:46 PM CE[employer] TOWER CLIMBER 10 mg metoprolol tartrate (LOPRESSOR) tablet 25 mg 25 mg, Oral, 2 times daily, First dose on Mon09/26/21 at 1400, Until Discontinued Given 09/26/2021 1:56 PM CE[employer] TOWER CLIMBER 25 mg metoprolol tartrate (LOPRESSOR) tablet 50 mg 50 mg, Oral, Every 8 hours, First dose (after last modification) on Mon09/26/21 at 1900, Until Discontinued Given 10/02/2021 12:57 PM CE[facility] TOWER CLIMBER 50 mg Given 10/02/2021 3:02 AM CE[employer] TOWER CLIMBER 50 mg Given 10/01/2021 7:38 PM CE[employer] TOWER CLIMBER 50 mg metroNIDAZOLE (FLAGYL) IVPB 500 mg 500 mg, Intravenous, at 100 mL/hr, director call center sales, 1 dose, On Mon09/22/21 at 0630, Give within 60 minutes of surgical incision, Pre-OpIndications:Colostomy in place ([facility]) New Bag 09/22/2021 9:15 AM CE[facility] TOWER CLIMBER 500 mg 100 mL/ hr ondansetron (ZOFRAN) injection 4 mg 4 mg, Intravenous, Once, 1 dose, On Mon09/22/21 at 0630, On admission, Pre-Op Given 09/22/2021 7:02 AM CE[facility] TOWER CLIMBER 4 mg ondansetron (ZOFRAN) injection 4 mg 4 mg, Intravenous, Every 8 hours PRN, Nausea, Vomiting, Starting on Mon09/22/21 at 1607, Until 10/02/21 at 1701, Discontinue IV Zofran once able to take PO, Post-Op Given 09/24/2021 8:27 AM CE[facility] TOWER CLIMBER 4 mg Given 09/24/2021 12:45 AM CE[facility] TOWER CLIMBER 4 mg oxyCODONE-acetaminophen (PERCOCET) 5-325 MG tablet [...] least 2 minutes. Given 10/02/2021 8:25 AM CE[facility] TOWER CLIMBER 40 mg Given 10/01/2021 8:05 AM CE[employer] TOWER CLIMBER 40 mg Given 09/30/2021 8:41 AM CE[employer] TOWER CLIMBER 40 mg phenol (CHLORASEPTIC) spray 1 spray 1 spray, Mouth/Throat, As needed, Pain, Starting on 09/25/21 at 2325, Until 10/02/21 at 1701 Given 09/28/2021 2:53 AM CELL TOWER CLIMBER 1 spray Given 09/26/2021 7:58 PM CELL TOWER CLIMBER 1 spray Given 09/25/2021 11:33 PM CELL TOWER CLIMBER 1 spray piperacillin-tazobactam (ZOSYN) 3.375 g in sodium chloride 0.9 % 50 mL IVPB 3.375 g, Intravenous, Administer over 30 Minutes, Once, 1 dose, On Mon09/22/21 at 1815, Administer over 30 minutes. New Bag 09/22/2021 7:13 PM CELL TOWER CLIMBER 3.375 g 100 mL/hr piperacillin-tazobactam (ZOSYN) 3.375 g in sodium chloride 0.9 % 50 mL IVPB 3.375 g, Intravenous, Administer over 240 Minutes, Every 8 hours, First dose on Yamilex 09/23/21 at 0200, Until Discontinued, Administer over 4 hours (extended infusion). New Bag 09/30/2021 10:30 AM CELL TOWER CLIMBER 3.375 g 12.5 mL/h r New Bag 09/30/2021 2:23 AM CELL TOWER CLIMBER 3.375 g 12.5 mL/hr New Bag 09/29/2021 6:00 PM CELL TOWER CLIMBER 3.375 g 12.5 mL/hr potassium chloride 10 mEq in SW 100 mL IVPB 10 mEq, Intravenous, Administer over 60 Minutes, Every hour scheduled, 1 dose, First dose on Mon09/28/21 at 1115, TOTAL DOSE 10 MEQ MAX rate in peripheral line of 10 mEq per hour. New Bag 09/28/2021 11:53 AM CELL TOWER CLIMBER 10 mEq 100 mL/hr prochlorperazine (COMPAZINE) injection [...] ondansetron or metoclopramide Given 09/24/2021 11:51 AM CELL TOWER CLIMBER 10 mg scopolamine (TRANSDERM-SCOP) 1 MG/3DAYS patch 1 patch 1 patch, Transdermal, Administer over 24 Hours, Once, 1 dose, On Mon09/22/21 at 0630, Pre-OpIndications:Colost delia in place ([facility]) Patch Applied 09/22/2021 6:50 AM CELL TOWER CLIMBER 1 patch Behind Right Ear sodium chloride [...] 1534, Post-Op New Bag 09/27/2021 8:41 AM CELL TOWER CLIMBER 75 mL/hr New Bag 09/26/2021 6:02 PM CELL TOWER CLIMBER 75 mL/hr New Bag 09/26/2021 3:59 AM CELL TOWER CLIMBER 75 mL/hr documented in this encounter Active and Recently Administered Medications Times are shown in CELL TOWER CLIMBER. Scheduled Medication Order 09/30/2021 10/01/2021 10/02/2021 amLODIPine [...] Calloway, GINA) 0318 (Given - Provider: Flor Calloway RN)[id number] [...] Post-Op documented in this encounter Care Teams Automatic Gluing Machine Operator Relationship Specialty Start Date End Date Lorie Castanon MD PCP - General INTERNAL MEDICINE 01/15/20 02/09/23 Moraima Toledo, RN [address] [place] [address] Public Transportation Inspector (Ambulatory) REGISTERED NURSE 09/23/21 documented as of this encounter
--- OUTSIDE RECORDS SUMMARY | 2024-11-02 09:16 | XMS_ITS | Encounter Summary ---
Author Organization [facility] Address [address] [place] [address]. [place], [place] [address] [place] [id number] Care Team Providers Care Ward Clerk Name Role Phone Lorie Chan MD Primary Care Provider [phone] Encounter Details Date Type Department Care Team [...] on file Legal Sex Male 9:58 PM GIFT OFFICER Gender Identity Not on file Sexual [...] [facility] [address] [place] [address] [place] [address] [place] [address] 10/22/2025 9:15 AM GIFT OFFICER Office Visit [facility] [id number] Mily Gan MD [address] [address] documented as of this encounter Goals Goal Patient Goal Type Associated Problems Recent Progress Patient-Stated? Author Establish Plan for Symptom Monitoring General Jesi Lagunas i, RN Monitor - demonstrates appropriate technique of care of indwelling urinary catheter and new ostomy General No Jesi Cochran RN documented as of this encounter Visit Diagnoses Not on filedocumented in this encounter Care Teams Ward Clerk Relationship Specialty Start Date End Date Lorie Chan MD PCP - General INTERNAL MEDICINE 01/15/20 02/09/23 documented as of this encounter
--- OUTSIDE RECORDS SUMMARY | 2024-11-02 09:16 | XMS_ITS | Encounter Summary ---
Author Organization [facility] Address [address] [place] [address]. [place] [address] [place] [address] Care Team Providers Care Ring Spinner Name Role Phone Lorie Castanon MD Primary Care Provider [phone] Reason for Visit * Auth/Cert Specialty Diagnoses / Procedures Referred By Shelby jama Referred To Contact Diagnoses colostomy in place Procedures CLOSE ENTEROSTOMY CYSTOSCOPY,INSERT URETERAL STENT LAPAROSCOPIC POSSIBLE OPEN HARTMANS REVERSAL, POSSIBLE BOWEL RESECTION Ureteral Stent Placement Referral ID Status Reason Start Date Expiration Date Visits Re quested Visits Authorized [id number] 1 1 Encounter Details Date Type Department Care Team (Late st Contact Info) Description 09/22/2021 7:30 AM DERMATOLOGIST AND DERMATOPATHOLOGIST - 09/22/2021 12:05 PM DERMATOLOGIST AND DERMATOPATHOLOGIST Surgery [facility] [address] [place], [place] [id number] Margarita Sloan MD [address] [address] LAPAROSCOPIC HARTMANS REVERSAL Surgery Details Date/Time Status Location OR Service Patient Class Case Class Case Type Trauma Case? 09/22/2021 7:30 AM Posted [facility] OR OR 1 General Short Stay/Outpati [...] on file Legal Sex Male 9:58 PM DERMATOLOGIST AND DERMATOPATHOLOGIST Gender Identity Not on file Sexual Orientation Not on file COVID-19 Exposure Response Date Recorded In the last month, have you been in contact with someone who was confirmed or suspected to have Coronavirus / COVID-19? No / Unsure 09/22/2021 6:03 AM DERMATOLOGIST AND DERMATOPATHOLOGIST documented as of this encounter Last Filed Vital Signs Vital Sign Reading Time Taken Comments Blood Pressure 140/69 09/22/2021 8:04 AM DERMATOLOGIST AND DERMATOPATHOLOGIST Pulse 69 09/22/2021 8:04 AM DERMATOLOGIST AND DERMATOPATHOLOGIST Temperature 36.5 ??C (97.7 ??F) 09/22/2021 6:22 AM CS T Respiratory Rate 12 09/22/2021 8:04 AM DERMATOLOGIST AND DERMATOPATHOLOGIST Oxygen Saturation 96% 09/22/2021 8:04 AM DERMATOLOGIST AND DERMATOPATHOLOGIST Inhaled Oxygen Concentration - - Weight 73 kg (161 lb) 09/03/2021 8:58 AM CDT Height 170.2 cm (5' 7 ) 09/03/2021 8:58 AM CDT Body Mass Index 25.17 09/22/2021 4:43 PM DERMATOLOGIST AND DERMATOPATHOLOGIST documented in this encounter Functional Status * RETIRED Are you deaf or do you have serious difficulty hearing Answer Date of Assessment Author Status No 10/02/2021 12:38 PM DERMATOLOGIST AND DERMATOPATHOLOGIST Acti ve * RETIRED Are you blind or do you have serious difficulty seeing, even when wearing glasses? Answer Date of Assessment Author Status No 10/02/2021 12:38 PM DERMATOLOGIST AND DERMATOPATHOLOGIST Aniya ve * Do you have serious difficulty walking or climbing stairs? Answer Date of Assessment Author Status No 10/02/2021 12:38 PM DERMATOLOGIST AND DERMATOPATHOLOGIST Annette Jorge R N Active * Do you have difficulty dressing or bathing? Answer Date of Assessment Author Status No 10/02/2021 12:38 PM DERMATOLOGIST AND DERMATOPATHOLOGIST Annette Jorge R N Active * Because of a physical, mental, or emotional condition, do you have difficulty doing errands alone such as visiting a doctor's office or shopping? Answer Date of Assessment Author Status No 10/02/2021 12:38 PM DERMATOLOGIST AND DERMATOPATHOLOGIST Annette Jorge R N Active documented as of this encounter Mental Status * Because of a physical, mental, or emotional condition, do you have serious difficulty concentrating, remembering, or making decisions? Answer Entry Date Author Status No 10/02/2021 12:38 PM DERMATOLOGIST AND DERMATOPATHOLOGIST Annette Jorge R N Active documented in this encounter Discharge Summaries * Aneesh Mesa MD - 10/02/2021 9:24 AM CST Hospitalist Discharge Summary Patient ID: Mandie Cotter. male. 1955. [id number] Hospital Course: 66-year-old male presented with POD [...] during hospitalization. All plans discussed with patient/patient's family/desktop support consultant. They are agreeable with plan and voiced understanding. ?? This note was dictated with [employer] medical dictation software; misspellings, punctuation errors, omitted [...] No results for input(s): PH, PCO2, PO2, [id number], BICARBWB, BASEDEFICIT, BASEEXCESS in the [id number] hours. Results for orders placed or performed during the hospital encounter of 03/18/21 URINALYSIS, AUTO, COMPLETE Result Value Ref Range COLOR (U) YELLOW TRANSPARENCY HAZY Specific [place] (U) 1.015 1.000 - 1.030 U PH [...] Your Medications These medications were sent to [id number] - [place], [place] - [address] [place] [address] [place], [place] [address] ?? amLODIPine 5 MG tablet ?? metoprolol [...] ANEESH MESA MD 10/02/2021 12:38 PM Inpatient ATOLOGIST AND DERMATOPATHOLOGIST ATOLOGIST AND DERMATOPATHOLOGIST documented in this encounter Discharge Instructions * Discharge Instructions* Annette Jorge RN - 10/02/2021 12:39 PM DERMATOLOGIST AND DERMATOPATHOLOGIST Patient Education Ostomy Reversal Why is this [...] Be sure to include all prescription and vfjc-til-iuwyjrp (OTC) drugs, and herbal supplements. Tell the [...] right for you. Copyright Copyright ?? 2020 [employer]. and its affiliates and/or licensors. All rights reserved. Wound vac ordered through [employer]. [phone]. [facility] Home Health to follow . [phone] ATOLOGIST AND DERMATOPATHOLOGIST * Additional Instructions* Annette Jorge RN - 10/02/2021 2:08 PM DERMATOLOGIST AND DERMATOPATHOLOGIST Change wound vac drsg q Monday, , Saturdays ATOLOGIST AND DERMATOPATHOLOGIST documented in this encounter Medications at Time [...] this encounter Progress Notes * MICHAEL Lovett Application Support Developer - 10/02/2021 2:34 PM CST Anesthesia Record Closure: As a Chart Correction Application Support Developer, I closed the Anesthesia Record due to ageof the record. All required documentation was previously completed and signed by CUT OUT AND MARKING MACHINE OPERATOR. * Annette Jorge RN - [...] of wound healing Outcome: Adequate for Discharge ATOLOGIST AND DERMATOPATHOLOGIST * Tiffani Moreno MD - 10/02/2021 12:32 [...] drain F/u Dr Sloan next week GABRIELLE ATOLOGIST AND DERMATOPATHOLOGIST * Evie Antony RN - 10/01/2021 3:35 PM CST INTERDISCIPLINARY CARE CONFERENCE: TEAM ATTENDANCE: CASE MANAGEMENT, UR, NURSING, PT, OT, CARDIOPULMONARY, KITCHEN HELP HANDYMAN, HOSPITALIST HOME HEALTH,PASTORAL CARE, PHARMACY Meeting held at 1100. NG removes. Full Liquid diet. 1400 wound vac ordered through [employer]. Patient picked [facility] home health to follow stated has used in the past . Referral sent. ATOLOGIST AND DERMATOPATHOLOGIST * Aneesh Mesa MD - 10/01/2021 1:16 [...] normal. Lung bases are clear, within the xqmyf-gn-elvm. ABDOMEN: 1. No free air below the [...] normal. Lung bases are clear, within the assgs-ce-jfuf. ABDOMEN: 1. No free air below the [...] bowel noted at the margin of the yxkmp-qd-zztb Ordered By: MARGARITA SLOAN Interpreted By: Moncho Cheng, 09/24/2021 3:23 PM Results for orders placed or performed during the hospital encounter of 09/22/21 ECG 12 lead Narrative [facility] Test Date: 2021-09-24 Pat Name: MANDIE COTTER Department: Room: 109 Gender: Male Chief Of Production: : 1955 Requested By: PORSCHE LORD Order Number: [id number] Reading MD: Toño Lovett Measurements Intervals Keene Rate: 93 P: 30 TX: 136 QRS: 13 QRSD: 98 T: 53 QT: 353 QTc: 439 Interpretive Statements SINUS RHYTHM Compared to ECG 03/18/2021 10:08:00 T-wave abnormality no longer present ATOLOGIST AND DERMATOPATHOLOGIST ECG 12 lead Narrative [facility] Test Date: 2021-09-26 Pat Name: MANDIE COTTER Department: Room: 1091 Gender: Male Chief Of Production: : 1955 Requested By: LACEY BARKLEY Order Number: [id number] Reading MD: Toño Lovett Measurements Intervals Keene Rate: 127 P: TX: 0 QRS: 9 QRSD: 91 T: 32 QT: 306 QTc: 445 Interpretive Statements ATRIAL FIBRILLATION WITH RAPID VENTRICULAR RESPONSE WITH ABERRANT CONDUCTION OR VENTRICULAR PREMATURE COMPLEXES NONSPECIFIC ST & T-WAVE ABNORMALITY ABNORMAL RHYTHM ECG Compared to ECG 09/24/2021 12:41:26 Ventricular premature complex(es) now present Aberrant conduction of supraventricular beat(s) now present T-wave abnormality now present Sinus rhythm no longer present ATOLOGIST AND DERMATOPATHOLOGIST ECG [address] [facility] Test Date: 2021-09-27 Pat Name: MANDIE COTTER Department: Room: 1091 Gender: Male Chief Of Production: : 1955 Requested By: LACEY BARKLEY Order Number: [id number] Reading MD: Ben Diego Measurements Intervals Keene Rate: 67 P: 5 TX: 111 QRS: 32 QRSD: 101 T: 46 QT: 392 QTc: 416 Interpretive Statements SINUS RHYTHM WITH SHORT TX INTERVAL NONSPECIFIC ST & T-WAVE ABNORMALITY Compared to ECG 09/26/2021 12:44:09 Short TX interval now present Atrial fibrillation no longer present Aberrant conduction of supraventricular beat(s) no longer present Ventricular premature complex(es) no longer present T-wave abnormality still present ATOLOGIST AND DERMATOPATHOLOGIST Assessment & Plan Length of stay (DAYS):9 Problem List Items Addressed This Visit None Visit Diagnoses Colostomy in place ([facility]) Relevant Medications acetaminophen (TYLENOL) tablet 1,000 [...] during hospitalization. All plans discussed with patient/patient's family/desktop support consultant. They are agreeable with plan and voiced understanding. This note was dictated with [employer] medical dictation software; misspellings, punctuation errors, omitted words or dictation variances may occur. BETZAIDA OBRIEN PA-C 10/01/2021 1:17 PM Primary care physician: LORIE CASTANON MD Extended Emergency Contact Information Primary Emergency Contact: Vaishali Cotter Mobile Relation: Spouse Preferred language: Estonian Rejected Items Clerk needed? No Secondary Emergency Contact: ElieTata Mobile Relation: Daughter Preferred language: Estonian Rejected Items Clerk needed? No The patient was seen and [...] colostomy reversal, diet per surgery support appreciated. ATOLOGIST AND DERMATOPATHOLOGIST ATOLOGIST AND DERMATOPATHOLOGIST ATOLOGIST AND DERMATOPATHOLOGIST * Tiffani Moreno MD - 10/01/2021 11:46 [...] regular diet Possible D/C in am GABRIELLE ATOLOGIST AND DERMATOPATHOLOGIST * Ketty Palacios RN - 10/01/2021 10:11 [...] Goal: Evidence of wound healing Outcome: Progressing ATOLOGIST AND DERMATOPATHOLOGIST * Delilah Schultz PA-C - 09/30/2021 11:31 [...] normal. Lung bases are clear, within the vcqye-gq-celr. ABDOMEN: 1. No free air below the [...] bowel noted at the margin of the xtyjp-jy-zvew Ordered By: MARGARITA SLOAN Interpreted By: Moncho Cheng, 09/24/2021 3:23 PM EKG: Results for orders placed or performed during the hospital encounter of 09/22/21 ECG 12 lead Narrative [facility] Test Date: 2021-09-24 Pat Name: MANDIE COTTER Department: Room: 109 Gender: Male Chief Of Production: : 1955 Requested By: PORSCHE LORD Order Number: [id number] Reading MD: Toño Lovett Measurements Intervals Keene Rate: 93 P: 30 TX: 136 QRS: 13 QRSD: 98 T: 53 QT: 353 QTc: 439 Interpretive Statements SINUS RHYTHM Compared to ECG 03/18/2021 10:08:00 T-wave abnormality no longer present ATOLOGIST AND DERMATOPATHOLOGIST ECG 12 lead Narrative [facility] Test Date: 2021-09-26 Pat Name: MANDIE COTTER Department: Room: 1091 Gender: Male Chief Of Production: : 1955 Requested By: LACEY BARKLEY Order Number: [id number] Reading MD: Toño Lovett Measurements Intervals Keene Rate: 127 P: TX: 0 QRS: 9 QRSD: 91 T: 32 QT: 306 QTc: 445 Interpretive Statements ATRIAL FIBRILLATION WITH RAPID VENTRICULAR RESPONSE WITH ABERRANT CONDUCTION OR VENTRICULAR PREMATURE COMPLEXES NONSPECIFIC ST & T-WAVE ABNORMALITY ABNORMAL RHYTHM ECG Compared to ECG 09/24/2021 12:41:26 Ventricular premature complex(es) now present Aberrant conduction of supraventricular beat(s) now present T-wave abnormality now present Sinus rhythm no longer present ATOLOGIST AND DERMATOPATHOLOGIST ECG 12 lead Narrative [facility] Test Date: 2021-09-27 Pat Name: MANDIE COTTER Department: Room: 1091 Gender: Male Chief Of Production: : 1955 Requested By: LACEY BARKLEY Order Number: [id number] Reading MD: Ben Diego Measurements Intervals Keene Rate: 67 P: 5 TX: 111 QRS: 32 QRSD: 101 T: 46 QT: 392 QTc: 416 Interpretive Statements SINUS RHYTHM WITH SHORT TX INTERVAL NONSPECIFIC ST & T-WAVE ABNORMALITY Compared to ECG 09/26/2021 12:44:09 Short TX interval now present Atrial fibrillation no longer present Aberrant conduction of supraventricular beat(s) no longer present Ventricular premature complex(es) no longer present T-wave abnormality still present ATOLOGIST AND DERMATOPATHOLOGIST Delilah Schultz PA-C 09/30/2021 11:31 AM Inpatient Cosigned by Aneesh Mesa MD at 09/30/2021 1:47 PM DERMATOLOGIST AND DERMATOPATHOLOGIST ATOLOGIST AND DERMATOPATHOLOGIST ATOLOGIST AND DERMATOPATHOLOGIST * Tiffani Moreno MD - 09/30/2021 10:55 [...] liquid Check stool for c diff GABRIELLE ATOLOGIST AND DERMATOPATHOLOGIST * Ketty Palacios RN - 09/30/2021 10:17 [...] Goal: Evidence of wound healing Outcome: Progressing ATOLOGIST AND DERMATOPATHOLOGIST * Jesi Torres RN - 09/30/2021 5:24 [...] Goal: Evidence of wound healing Outcome: Progressing ATOLOGIST AND DERMATOPATHOLOGIST * Annette Jorge RN - 09/29/2021 2:42 [...] deep venous thrombosis Outcome: Met This Shift ATOLOGIST AND DERMATOPATHOLOGIST * Tiffani Moreno MD - 09/29/2021 12:53 [...] P) D/c NG tube Clear liquids GABRIELLE ATOLOGIST AND DERMATOPATHOLOGIST * Evie Antony RN - 09/29/2021 12:15 PM CST INTERDISCIPLINARY CARE CONFERENCE: TEAM ATTENDANCE: CASE MANAGEMENT, UR, NURSING, PT, OT, CARDIOPULMONARY, KITCHEN HELP HANDYMAN, HOSPITALIST HOME HEALTH,PASTORAL CARE, PHARMACY Meeting held at 1100. Nursing reports ng to have no output at this time. KUB done this AM. ATOLOGIST AND DERMATOPATHOLOGIST * Aneesh Mesa MD - 09/29/2021 11:51 [...] No results for input(s): PH, PCO2, PO2, [id number], BICARBWB, BASEDEFICIT, BASEEXCESS in the [id number] hours. IMAGING: XR ABD KUB Result Date: 09/27/2021 IMAGING STUDIES: XR ABD KUB DATE: 09/27/2021 2:22 PM CLINICAL HISTORY: abd gastric output,abd swelling . . COMPARISON STUDIES: No previous available. FINDINGS IMPRESSION : CHEST: 1. The cardiac configuration is normal. Lung bases are clear, within the btnnb-eg-lttr. ABDOMEN: 1. No free air below the [...] bowel noted at the margin of the xafsx-fl-ugpx Ordered By: MARGARITA SLOAN Interpreted By: Moncho Cheng, 09/24/2021 3:23 PM EKG: Results for orders placed or performed during the hospital encounter of 09/22/21 ECG 12 lead Narrative [facility] Test Date: 2021-09-24 Pat Name: MANDIE COTTER Department: Room: 109 Gender: Male Chief Of Production: : 1955 Requested By: PORSCHE LORD Order Number: [id number] Reading MD: Toño Lovett Measurements Intervals Keene Rate: 93 P: 30 TX: 136 QRS: 13 QRSD: 98 T: 53 QT: 353 QTc: 439 Interpretive Statements SINUS RHYTHM Compared to ECG 03/18/2021 10:08:00 T-wave abnormality no longer present ATOLOGIST AND DERMATOPATHOLOGIST ECG 12 lead Narrative [facility] Test Date: 2021-09-26 Pat Name: MANDIE [facility] Department: Room: 1091 Gender: Male Chief Of Production: : 1955 Requested By: LACEY BARKLEY Order Number: [id number] Reading : Toño Lovett Measurements Intervals Keene Rate: 127 P: TX: 0 QRS: 9 QRSD: 91 T: 32 QT: 306 QTc: 445 Interpretive Statements ATRIAL FIBRILLATION WITH RAPID VENTRICULAR RESPONSE WITH ABERRANT CONDUCTION OR VENTRICULAR PREMATURE COMPLEXES NONSPECIFIC ST & T-WAVE ABNORMALITY ABNORMAL RHYTHM ECG Compared to ECG 09/24/2021 12:41:26 Ventricular premature complex(es) now present Aberrant conduction of supraventricular beat(s) now present T-wave abnormality now present Sinus rhythm no longer present ATOLOGIST AND DERMATOPATHOLOGIST ECG 12 lead Narrative [facility] Test Date: 2021-09-27 Pat Name: MANDIE [facility] Department: Room: 1091 Gender: Male Chief Of Production: : 1955 Requested By: LACEY BARKLEY Order Number: [id number] Reading MD: Ben Diego Measurements Intervals Keene Rate: 67 P: 5 TX: 111 QRS: 32 QRSD: 101 T: 46 QT: 392 QTc: 416 Interpretive Statements SINUS RHYTHM WITH SHORT TX INTERVAL NONSPECIFIC ST & T-WAVE ABNORMALITY Compared to ECG 09/26/2021 12:44:09 Short TX interval now present Atrial fibrillation no longer present Aberrant conduction of supraventricular beat(s) no longer present Ventricular premature complex(es) no longer present T-wave abnormality still present ATOLOGIST AND DERMATOPATHOLOGIST ANEESH MESA MD 09/29/2021 11:52 AM Inpatient ATOLOGIST AND DERMATOPATHOLOGIST * Evie Antony RN - 09/28/2021 2:42 PM CST INTERDISCIPLINARY CARE CONFERENCE: TEAM ATTENDANCE: CASE MANAGEMENT, UR, NURSING, PT, OT, CARDIOPULMONARY, KITCHEN HELP HANDYMAN, HOSPITALIST HOME HEALTH,PASTORAL CARE, PHARMACY Meeting held at 1100. Patient remains NPO. ATOLOGIST AND DERMATOPATHOLOGIST * Tiffani Moreno MD - 09/28/2021 1:45 [...] As per hospitalist KUB in am GABRIELLE ATOLOGIST AND DERMATOPATHOLOGIST * Lacey Barkley MD - 09/28/2021 10:58 [...] normal. Lung bases are clear, within the axfkn-qm-wddk. ABDOMEN: 1. No free air below the [...] IV Reglan KCL replacement LACEY BARKLEY MD ATOLOGIST AND DERMATOPATHOLOGIST * Gretel Aponet RN - 09/27/2021 10:35 PM CST Problem: [...] Goal: Evidence of wound healing Outcome: Progressing ATOLOGIST AND DERMATOPATHOLOGIST * Margarita Sloan MD - 09/27/2021 2:35 [...] ambulation and incentive. Margarita Sloan MD 09/27/2021 ATOLOGIST AND DERMATOPATHOLOGIST * Alissa Flores, RD - 09/27/2021 11:27 [...] index is 26.66 kg/m??. BMI Assessment: Normal Hubert Body Weight: 148# Percent Hubert Body Weight: 107% Usual Body Weight: 161# Percent Usual Body Weight: 98% Percent Weight Loss: 2% Nutrition Focused Physical Findings: no evidence of muscle or adipose tissue loss Nutrition: Current Diet Order: Diet clear liquid Appropriate Diet Comment: Patient is NPO at this time Learning needs assessed: Patient is able to understand nutritional guidelines Chewing/swallowing problems: No Food allergies/intolerances: none Cultural/Church food preferences: none Current diet appropriate? Yes [...] Muscle Wasting No Fluid Accumulation No Reduced Tool Crib Attendant Strength No Discharge nutrition plan: Discharge needs assessed. Will provide/update discharge instructions as needed. (See Nutrition Prescription above) ALISSA FLORES RD 09/27/21, 11:27 AM ATOLOGIST AND DERMATOPATHOLOGIST * Aliya Moreno RN - 09/27/2021 11:22 AM CST [facility] for discharge planning @1100 with HOSPITALIST, EQUIPMENT LEAD, CM, UR, PASTORAL CARE, PHARMACY, CARDIOPULMONARY, KITCHEN HELP HANDYMAN, HH. Advance diet to clear liquid NG tube [facility] to follow surgically Denies need for HH at this time. ATOLOGIST AND DERMATOPATHOLOGIST * Lacey Barkley MD - 09/27/2021 10:58 [...] if approved by Surgery. LACEY BARKLEY MD ATOLOGIST AND DERMATOPATHOLOGIST * Rose Marie Starr RN - 09/26/2021 [...] Goal: Evidence of wound healing Outcome: Progressing ATOLOGIST AND DERMATOPATHOLOGIST * Margarita Sloan MD - 09/26/2021 2:43 [...] bowel noted at the margin of the pmfww-ft-vtby Ordered By: MARGARITA SLOAN Interpreted By: Moncho Cheng, 09/24/2021 3:23 PM Assessment: Mandie Cotter is a 66-year-old male status post laparoscopic reversal of Hudson's procedure. Plan: Patient was in A. fib and was started on p.o. metoprolol. Okay for sips of clears with intermittent NG tube suction. Continue current medical management. Reassess NG tube output tomorrow. Margarita Sloan MD 09/26/2021 ATOLOGIST AND DERMATOPATHOLOGIST * Lacey Barkley MD - 09/26/2021 1:33 PM CST Patient noted to be tachycardia with irregular rhythm. EKG revealed a.fib RVR. Recheck of HR in 80's. Cancelled IV cardizem and began metoprolol 25 mg po BID. Placed on telemetry. ATOLOGIST AND DERMATOPATHOLOGIST * Lacey Barkley MD - 09/26/2021 11:34 [...] bowel noted at the margin of the yyfcp-hl-fclo Ordered By: MARGARITA SLOAN Interpreted By: Moncho [...] on NGT removal EKG LACEY BARKLEY MD ATOLOGIST AND DERMATOPATHOLOGIST * Dulce Nguyen LPN - 09/25/2021 10:49 [...] Goal: Evidence of wound healing Outcome: Progressing ATOLOGIST AND DERMATOPATHOLOGIST * Margarita Sloan MD - 09/25/2021 4:25 [...] bowel noted at the margin of the fmggt-lq-pywm Ordered By: MARGARITA SLOAN Interpreted By: Moncho [...] change on Monday. Margarita Sloan MD 09/25/2021 ATOLOGIST AND DERMATOPATHOLOGIST * Lacey Barkley MD - 09/25/2021 12:14 [...] bowel noted at the margin of the teenh-pi-jifl Ordered By: MARGARITA SLOAN Interpreted By: Moncho [...] now Continue to ambulate LACEY BARKLEY MD ATOLOGIST AND DERMATOPATHOLOGIST * Evie nAtony RN - 09/24/2021 3:10 PM CST INTERDISCIPLINARY CARE CONFERENCE: TEAM ATTENDANCE: CASE MANAGEMENT, UR, NURSING, PT, OT, CARDIOPULMONARY, KITCHEN HELP HANDYMAN, HOSPITALIST HOME HEALTH,PASTORAL CARE, PHARMACY Meeting held at 1100. Remains NPO. Nursing reports patient to have had an emesis this morning. Willcontinue to monitor. ATOLOGIST AND DERMATOPATHOLOGIST * Margarita Sloan MD - 09/24/2021 2:07 [...] advancement of diet. Margarita Sloan MD 09/24/2021 ATOLOGIST AND DERMATOPATHOLOGIST * Porsche Lord, BETTY - 09/24/2021 10:03 [...] Lacey Barkley MD at 09/24/2021 4:35 PM DERMATOLOGIST AND DERMATOPATHOLOGIST ATOLOGIST AND DERMATOPATHOLOGIST ATOLOGIST AND DERMATOPATHOLOGIST Associated attestation - Lacey Barkley MD - 09/24/2021 4:35 PM DERMATOLOGIST AND DERMATOPATHOLOGIST I, LACEY BARKLEY MD, performed an examination [...] Goal: Evidence of wound healing Outcome: Progressing ATOLOGIST AND DERMATOPATHOLOGIST * Margarita Sloan MD - 09/23/2021 1:30 [...] DVT prophylaxis, incentive. Margarita Sloan MD 09/23/2021 ATOLOGIST AND DERMATOPATHOLOGIST * Lois Gilliland, PT - 09/23/2021 1:01 [...] biopsy performed by Margarita Sloan MD at [facility] OR ??? COLOSTOMY reversable ??? HERNIA REPAIR Right [facility] ??? HERNIA REPAIR Left [facility] ??? NECK/CHEST PROCEDURE UNLISTED Right [facility], re-built right side of neck. ??? SMALL INTESTINE SURGERY bowel rupture ??? TOTAL KNEE ARTHROPLASTY Bilateral ZANA Partial KR, done @ [facility] No current outpatient medications on file. [...] (4 TWAN ) Prior Function Level of [place] Independent with ADLs;Independent with functional transfers;Independent with [...] the session with patient seated in recliner. ATOLOGIST AND DERMATOPATHOLOGIST * Libby Paul, OT - 09/23/2021 12:41 [...] spouse when OK medically. No training needed. ATOLOGIST AND DERMATOPATHOLOGIST * Alissa Flores, RD - 09/23/2021 11:57 [...] index is 24.96 kg/m??. BMI Assessment: Normal Hubert Body Weight: 148# Percent Hubert Body Weight: 107% Usual Body Weight: 161# Percent Usual Body Weight: 98% Percent Weight Loss: 2% Nutrition Focused Physical Findings: no evidence of muscle or adipose tissue loss Nutrition: Current Diet Order: Diet NPO effective now Diet Comment: Patient is NPO at this time Learning needs assessed: Patient is able to understand nutritional guidelines Chewing/swallowing problems: No Food allergies/intolerances: none Cultural/Church food preferences: none Current diet appropriate? Yes [...] Muscle Wasting No Fluid Accumulation No Reduced Tool Crib Attendant Strength No Discharge nutrition plan: Discharge needs assessed. Will provide/update discharge instructions as needed. (See Nutrition Prescription above) ALISSA FLORES RD 09/23/21, 11:57 AM ATOLOGIST AND DERMATOPATHOLOGIST * Aliya Moreno RN - 09/23/2021 11:27 AM CST [facility] for discharge planning @1100 with HOSPITALIST, EQUIPMENT LEAD, CM, UR, PASTORAL CARE, PHARMACY, CARDIOPULMONARY, KITCHEN HELP HANDYMAN, HH. NPO - advance to sips of clear liquids at 1600 today [facility] following surgically PT eval DC [place] Expect 2-3 more days ATOLOGIST AND DERMATOPATHOLOGIST * Aliya Moreno RN - 09/23/2021 9:05 AM CST 09/23/21 [id number] Referral Data Referral Reason Discharge Planning Source of Information Patient Patient Information Primary Caregiver Self Support System Immediate family (daughter, son and sister live in [place]) Baseline ADL's Functional Status Independent (patient drives) Living Arrangements Spouse/significant other Type of Residence Private residence (2 story with a basement; all living areas are on the main floor) Ambulation Assistance No Active DME (SHANTI - Hannahs Elliott) Bathing/Grooming Assistance No Dressing Assistance No Behavior Oriented;Cooperative Communication Talks;Understands speaking;Understands Estonian Socioeconomic Needs Caregiver Needed No At Risk [...] of major lifestyle changes, including change in shelter living environment No Family concerns/conflicts No Inadequate social and/or financial supports No Abuse and/or neglect of elder, adult or child No Psychiatric and/or substance abuse issues affecting current hospitalization No Homelessness with lack of safe discharge environment No Need for guardianship petition No Chaptered patient No [place] Only - Criminal Background check [place] only - Is patient going to [facility]? No Spoke with patient and in room. Discussed home health services with patient. Patient denies the need for home health services. ATOLOGIST AND DERMATOPATHOLOGIST documented in this encounter H&P Notes * [...] biopsy performed by Margarita Sloan MD at [facility] OR ??? COLOSTOMY ? reversable ??? HERNIA REPAIR Right ? [facility] ??? HERNIA REPAIR Left ? [facility] ??? NECK/CHEST PROCEDURE UNLISTED Right ? [facility], re-built right side of neck. ??? SMALL [...] kg/m??. ?? Diagnoses/Impression: 1. Colostomy in place ([facility]) ? Recommendations and Plan: Mandie Cotter [...] coordinationof care. ?? Margarita Sloan MD ?? ATOLOGIST AND DERMATOPATHOLOGIST documented in this encounter Consult Notes * [...] biopsy performed by Margarita Sloan MD at [facility] OR ??? COLOSTOMY reversable ??? HERNIA REPAIR Right [facility] ??? HERNIA REPAIR Left [facility] ??? NECK/CHEST PROCEDURE UNLISTED Right [facility], re-built right side of neck. ??? SMALL INTESTINE SURGERY bowel rupture ??? TOTAL KNEE ARTHROPLASTY Bilateral ZANA Partial KR, done @ [facility] Medications Prior to Admission Medication Sig [...] Lacey Barkley MD at 09/23/2021 3:53 PM DERMATOLOGIST AND DERMATOPATHOLOGIST ATOLOGIST AND DERMATOPATHOLOGIST ATOLOGIST AND DERMATOPATHOLOGIST Associated attestation - Lacey Barkley MD - 09/23/2021 3:53 PM DERMATOLOGIST AND DERMATOPATHOLOGIST I, LACEY BARKLEY MD, performed a Consultation [...] - 09/22/2021 7:10 AM CST [facility] Consult Note Encounter Date: 09/22/2021 Patient [...] biopsy performed by Margarita Sloan MD at [facility] OR ??? COLOSTOMY reversable ??? HERNIA REPAIR Right [facility] ??? HERNIA REPAIR Left [facility] ??? NECK/CHEST PROCEDURE UNLISTED Right [facility], re-built right side of neck. ??? SMALL INTESTINE SURGERY bowel rupture ??? TOTAL KNEE ARTHROPLASTY Bilateral ZANA Partial KR, done @ [facility] Social History Socioeconomic History ??? [...] Oral Once ??? ceFAZolin 2 g Intravenous Glass Grinder ??? ceFAZolin 2 g Intravenous Glass Grinder ??? celecoxib 200 mg Oral Once ??? heparin (porcine) 5,000 Units Subcutaneous See Admin Instructions ??? metroNIDAZOLE 500 mg Intravenous Q8H ??? metroNIDAZOLE 500 mg Intravenous Glass Grinder ??? scopolamine 1 patch Transdermal Once ?? [...] consultation. -------- HAIR PERALTA MD [facility] [id number] ATOLOGIST AND DERMATOPATHOLOGIST documented in this encounter OR Notes * Op Note - aMrgarita Sloan MD - 09/22/2021 3:39 PM CST General Surgery Operative Note Patient name: Mandie Cotter Date of : 1955 Date of Surgery: 09/22/2021 Surgeon: Margarita Sloan MD Yarn Tester: Recorder Gravity Prospecting: Savannah Brush, [facility] Nurse 1: Dorinda Pak, GINA Scrub Person 1: Ezio Jiang, GINA Scrub Person 2: Cyn Burleson, GINA Moreno MD (no qualified offset press assistant for performance of the anastomosis) Pre-Op Diagnosis: colostomy in place Post-Op Diagnosis: Same Procedure: Reversal of Hudson's colostomy, bowel resection with end-to-end anastomosis (spy ICG tocheck anastomosis), splenic flexure mobilization, flexible sigmoidoscopy, VAC placement. Anesthesia Type: General Anesthesia Team: CUT OUT AND MARKING MACHINE OPERATOR: Mandie Paul CRNA EBL: Minimal [...] At this time, there was no qualified assistant production manager to help with the anastomosis and I [...] there were 2 complete donuts. A 15 Sami Easton-Srinivasan drain was then placed in the [...] a running looped 0 PDS with interspersed [id number] #1 nylon. Closure was noted to be [...] anastomosis portion of the procedure (no qualified assistant production manager) Margarita Sloan MD 09/22/2021 ATOLOGIST AND DERMATOPATHOLOGIST ATOLOGIST AND DERMATOPATHOLOGIST ATOLOGIST AND DERMATOPATHOLOGIST ATOLOGIST AND DERMATOPATHOLOGIST * Op Note - Hair Peralta MD - 09/22/2021 9:25 AM CST Urologic Surgery Operative Note Mandie Cotter [id number] 09/22/21 Preoperative Diagnosis: Diverticulitis Postoperative Diagnosis: [...] present for and performed the entire procedure. ATOLOGIST AND DERMATOPATHOLOGIST documented in this encounter Plan of Treatment Upcoming Encounters Date Type Department Care Team (Late st Contact Info) Description 01/27/2025 7:00 AM CDT Office Visit [facility] Family & Internal Medicine [facility] [address] [place] [address] [place] [address] [place] [address] 10/22/2025 9:15 AM DERMATOLOGIST AND DERMATOPATHOLOGIST Office Visit [facility] [id number] Mily Gan MD [address] [address] documented as of this encounter [...] COMPREHENSIVE METABOLIC PANEL Routine 10/02/2021 8:54 AM DERMATOLOGIST AND DERMATOPATHOLOGIST CBC W/DIFF AUTOMATED Routine 10/02/2021 8:54 AM DERMATOLOGIST AND DERMATOPATHOLOGIST XR ABD KUB Today 10/01/2021 8:39 AM DERMATOLOGIST AND DERMATOPATHOLOGIST COMPREHENSIVE METABOLIC PANEL Routine 10/01/2021 6:20 AM DERMATOLOGIST AND DERMATOPATHOLOGIST CBC W/DIFF AUTOMATED Routine 10/01/2021 6:20 AM DERMATOLOGIST AND DERMATOPATHOLOGIST MAGNESIUM Routine 10/01/2021 6:20 AM DERMATOLOGIST AND DERMATOPATHOLOGIST HC EIA QL CLOS DIFF TOXIN AG STAT 09/30/2021 4:04 PM DERMATOLOGIST AND DERMATOPATHOLOGIST COMPREHENSIVE METABOLIC PANEL Routine 09/30/2021 7:40 AM DERMATOLOGIST AND DERMATOPATHOLOGIST CBC W/DIFF AUTOMATED Routine 09/30/2021 7:40 AM DERMATOLOGIST AND DERMATOPATHOLOGIST COMPREHENSIVE METABOLIC PANEL Routine 09/29/2021 12:36 PM DERMATOLOGIST AND DERMATOPATHOLOGIST CBC W/DIFF AUTOMATED Routine 09/29/2021 12:36 PM DERMATOLOGIST AND DERMATOPATHOLOGIST XR ABD KUB Today 09/29/2021 8:59 AM DERMATOLOGIST AND DERMATOPATHOLOGIST POTASSIUM, SERUM STAT 09/28/2021 6:50 PM DERMATOLOGIST AND DERMATOPATHOLOGIST COMPREHENSIVE METABOLIC PANEL Routine 09/28/2021 9:11 AM DERMATOLOGIST AND DERMATOPATHOLOGIST CBC W/DIFF AUTOMATED Routine 09/28/2021 9:11 AM DERMATOLOGIST AND DERMATOPATHOLOGIST USE ECHOCARDIOGRAM Today 09/27/2021 2: 34 PM DERMATOLOGIST AND DERMATOPATHOLOGIST XR ABD KUB Today 09/27/2021 2:27 PM DERMATOLOGIST AND DERMATOPATHOLOGIST ECG 12-LEAD Routine 09/27/2021 1:42 PM DERMATOLOGIST AND DERMATOPATHOLOGIST COMPREHENSIVE METABOLIC PANEL Routine 09/27/2021 8:27 AM DERMATOLOGIST AND DERMATOPATHOLOGIST CBC W/DIFF AUTOMATED Routine 09/27/2021 8:27 AM DERMATOLOGIST AND DERMATOPATHOLOGIST ECG 12-LEAD Routine 09/26/2021 12:44 PM DERMATOLOGIST AND DERMATOPATHOLOGIST COMPREHENSIVE METABOLIC PANEL Routine 09/25/2021 6:40 AM DERMATOLOGIST AND DERMATOPATHOLOGIST CBC W/DIFF AUTOMATED Routine 09/25/2021 6:40 AM DERMATOLOGIST AND DERMATOPATHOLOGIST XR CHEST PORTABLE Routine 09/24/2021 3:1 9 PM DERMATOLOGIST AND DERMATOPATHOLOGIST HC OCCULT BLOOD GASTRIC Routine 09/24/2021 3:00 PM DERMATOLOGIST AND DERMATOPATHOLOGIST ECG 12-LEAD Routine 09/24/2021 12:41 PM DERMATOLOGIST AND DERMATOPATHOLOGIST COMPREHENSIVE METABOLIC PANEL Routine 09/24/2021 6:08 AM DERMATOLOGIST AND DERMATOPATHOLOGIST CBC W/DIFF AUTOMATED Routine 09/24/2021 6:08 AM DERMATOLOGIST AND DERMATOPATHOLOGIST COMPREHENSIVE METABOLIC PANEL Routine 09/23/2021 5:45 AM DERMATOLOGIST AND DERMATOPATHOLOGIST CBC W/DIFF AUTOMATED Routine 09/23/2021 5:45 AM DERMATOLOGIST AND DERMATOPATHOLOGIST CYSTOSCOPY,INSERT URETERAL STENT 09/22/2021 8:32 AM DERMATOLOGIST AND DERMATOPATHOLOGIST colostomy in place Case Notes parres placing ureteral stents Special Needs 0600 CLOSE ENTEROSTOMY 09/22/2021 8:3 2 AM DERMATOLOGIST AND DERMATOPATHOLOGIST colostomy in place Case Notes parres placing ureteral stents Special Needs 0600 TYPE & SCREEN Routine 09/22/2021 6:30 AM DERMATOLOGIST AND DERMATOPATHOLOGIST Colostomy in place (CMS/HCC HHS/HCC) PATHOLOGY Routine 09/22/2021 12:00 AM DERMATOLOGIST AND DERMATOPATHOLOGIST documented in this encounter Results * (ABNORMAL) CBC W/DIFF AUTOMATED (10/02/2021 8:54 AM [facility] Signature WBC 5.6 4.4 - 11.0 x10'3/uL 10/02/2021 9:33 AM [facility] RBC 3.98(L) 4.50 - 5.90 x10'6/uL 10/02/2021 9:33 AM [facility] HGB 12.7(L) 14.0 - 17.5 G/DL 10/02/2021 9:33 AM [facility] HCT 39.1(L) 41.5 - 50.4 % 10/02/2021 9:33 AM [facility] MCV 98.2(H) 80.0 - 96.0 FL 10/02/2021 9:33 AM [facility] MCH 31.9(H) 26.5 - 31.4 PG 10/02/2021 9:33 AM [facility] MCHC 32.5 31.9 - 34.8 G/DL 10/02/2021 9:33 AM [facility] RDW 13.1 12.3 - 14.3 % 10/02/2021 9:33 AM [facility] PLT 382(H) 151 - 353 x10'3/uL 10/02/2021 9:33 AM [facility] MPV 10.8 9.7 - 11.9 FL 10/02/2021 9:33 AM [facility] RBC MORPHOLOGY NORMAL 10/02/2021 9:33 AM [facility] PLT MORPH. NORMAL 10/02/2021 9:33 AM [facility] WBC MORPHOLOGY NORMAL 10/02/2021 9:33 AM [facility] LYMPHOCYTES % 27.2 15.8 - 45.0 % 10/02/2021 9:33 AM [facility] NEUTROPHILS % 61.1 42.1 - 71.9 % 10/02/2021 9:33 AM [facility] MONOCYTES % 9.2 5.7 - 12.5 % 10/02/2021 9:33 AM [facility] EOSINOPHILS 1.4 0.0 - 5.6 % 10/02/2021 9:33 AM [facility] BASOPHILS 0.7 0.0 - 1.3 % 10/02/2021 9:33 AM [facility] ABS. NEUTROPHILS 3.44 1.40 - 6.00 x10'3/uL 10/02/2021 9:33 AM [facility] IMMATURE GRANS % 0.4 0.0 - 0.5 % 10/02/2021 9:33 AM [facility] ABS. LYMPHOCYTES 1.53 0.80 - 4.70 x10'3/uL 10/02/2021 9:33 AM [facility] 10/02/2021 8:54 AM DERMATOLOGIST AND DERMATOPATHOLOGIST Delilah Schultz PA-C LABORATORY Final Result [facility] [address] [place] [address], * (ABNORMAL) COMPREHENSIVE METABOLIC PANEL (10/02/2021 8:54 AM DERMATOLOGIST AND DERMATOPATHOLOGIST) GLUCOSE 121(H) 70 - 99 MG/DL 10/02/2021 9:57 AM [facility] BUN 5(L) 7 - 18 MG/DL 10/02/2021 9:57 AM [facility] CREATININE S/P/B 0.80 0.7 - 1.3 MG/DL 10/02/2021 9:57 AM [facility] SODIUM S/P/B 140 136 - 145 MMOL/L 10/02/2021 9:57 AM [facility] POTASSIUM S/P/B 4.5 3.5 - 5.1 MMOL/L 10/02/2021 9:57 AM [facility] CHLORIDE S/P/B 105 100 - 108 MMOL/L 10/02/2021 9:57 AM [facility] CO2 29.2 21 - 32 MMOL/L 10/02/2021 9:57 AM [facility] CALCIUM S/P/B 8.4(L) 8.5 - 10.1 MG/DL 10/02/2021 9:57 AM [facility] BILIRUBIN TOTAL S/P/B 0.6 0.2 - 1.2 MG/DL 10/02/2021 9:57 AM [facility] TOTAL PROTEIN S/P/B 6.8 6.4 - 8.2 G/DL 10/02/2021 9:57 AM [facility] ALBUMIN S/P/B 3.0(L) 3.4 - 5.0 G/DL 10/02/2021 9:57 AM [facility] AST 24 15 - 37 U/L 10/02/2021 9:57 AM [facility] ALT 50 16 - 60 U/L 10/02/2021 9:57 AM [facility] ALKALINE PHOSPHATASE S/P/B 36(L) 50 - 136 U/L 10/02/2021 9:57 AM [facility] ANION GAP 5.8 5 - 15 MMOL/L 10/02/2021 9:57 AM [facility] BUN CREATININE RATIO 6.2 6 - 26 10/02/2021 9:57 AM DERMATOLOGIST AND DERMATOPATHOLOGIST [facility] A/G RATIO 0.8(L) 1.0 - 2.0 RATIO 10/02/2021 9:57 AM DERMATOLOGIST AND DERMATOPATHOLOGIST [facility] EGFR NON-AFR. AMER. >90 >90 ML/MIN/1.7 3 M2 10/02/2021 9:57 AM DERMATOLOGIST AND DERMATOPATHOLOGIST [facility] EGFR AFR. AMER. >90 >90 ML/MIN/1.7 3 M2 10/02/2021 9:57 AM [facility] Comment: NOTE: eGFR is not calculated for patients <18 years of age. This is an estimated GFR (CKD EPI) and should not be used for calculating drug doses. 10/02/2021 8:54 AM DERMATOLOGIST AND DERMATOPATHOLOGIST Delilah Schultz PA-C LABORATORY Final Result [facility] [address] [place] [address], * XR ABD KUB (10/01/2021 8:39 AM DERMATOLOGIST AND DERMATOPATHOLOGIST) Anatomical Region Laterality Modality Abdomen Radiographic Leola ging 10/01/2021 9:03 AM DERMATOLOGIST AND DERMATOPATHOLOGIST Impressions 10/01/2021 9:24 AM DERMATOLOGIST AND DERMATOPATHOLOGIST IMPRESSION: 1. ??Improved air-filled small bowel loops [...] 10/01/2021 9:03 AM Narrative 10/01/2021 9:24 AM DERMATOLOGIST AND DERMATOPATHOLOGIST IMAGING STUDIES: ??XR ABD KUB ? DATE: [...] Final Result * MAGNESIUM (10/01/2021 6:20 AM DERMATOLOGIST AND DERMATOPATHOLOGIST) MAGNESIUM 2.0 1.8 - 2.4 MG/DL 10/01/2021 11:27 AM DERMATOLOGIST AND DERMATOPATHOLOGIST [facility] 10/01/2021 6:20 AM DERMATOLOGIST AND DERMATOPATHOLOGIST Betzaida Obrien PA-C LABORATORY Final Result [facility] [address] [place] [address], [place] [phone] * (ABNORMAL) CBC W/DIFF AUTOMATED (10/01/2021 6:20 AM DERMATOLOGIST AND DERMATOPATHOLOGIST) [facility] Signature WBC 5.6 4.4 - 11.0 x10'3/uL 10/01/2021 6:50 AM [facility] RBC 4.03(L) 4.50 - 5.90 x10'6/uL 10/01/2021 6:50 AM [facility] HGB 12.8(L) 14.0 - 17.5 G/DL 10/01/2021 6:50 AM [facility] HCT 38.9(L) 41.5 - 50.4 % 10/01/2021 6:50 AM [facility] MCV 96.5(H) 80.0 - 96.0 FL 10/01/2021 6:50 AM [facility] MCH 31.8(H) 26.5 - 31.4 PG 10/01/2021 6:50 AM [facility] MCHC 32.9 31.9 - 34.8 G/DL 10/01/2021 6:50 AM [facility] RDW 13.2 12.3 - 14.3 % 10/01/2021 6:50 AM [facility] PLT 353 151 - 353 x10'3/uL 10/01/2021 6:50 AM [facility] MPV 10.3 9.7 - 11.9 FL 10/01/2021 6:50 AM [facility] RBC MORPHOLOGY NORMAL 10/01/2021 6:50 AM [facility] PLT MORPH. NORMAL 10/01/2021 6:50 AM [facility] WBC MORPHOLOGY NORMAL 10/01/2021 6:50 AM [facility] LYMPHOCYTES % 26.0 15.8 - 45.0 % 10/01/2021 6:50 AM [facility] NEUTROPHILS % 59.6 42.1 - 71.9 % 10/01/2021 6:50 AM [facility] MONOCYTES % 11.2 5.7 - 12.5 % 10/01/2021 6:50 AM [facility] EOSINOPHILS 2.1 0.0 - 5.6 % 10/01/2021 6:50 AM [facility] BASOPHILS 0.7 0.0 - 1.3 % 10/01/2021 6:50 AM [facility] ABS. NEUTROPHILS 3.35 1.40 - 6.00 x10'3/uL 10/01/2021 6:50 AM [facility] IMMATURE GRANS % 0.4 0.0 - 0.5 % 10/01/2021 6:50 AM [facility] ABS. LYMPHOCYTES 1.46 0.80 - 4.70 x10'3/uL 10/01/2021 6:50 AM [facility] 10/01/2021 6:20 AM DERMATOLOGIST AND DERMATOPATHOLOGIST Delilah Schultz PA-C LABORATORY Final Result [facility] [address] [place] [id number], * (ABNORMAL) COMPREHENSIVE METABOLIC PANEL (10/01/2021 6:20 AM DERMATOLOGIST AND DERMATOPATHOLOGIST) GLUCOSE 107(H) 70 - 99 MG/DL 10/01/2021 7:05 AM [facility] BUN 2(L) 7 - 18 MG/DL 10/01/2021 7:05 AM [facility] CREATININE S/P/B 0.73 0.7 - 1.3 MG/DL 10/01/2021 7:05 AM [facility] SODIUM S/P/B 139 136 - 145 MMOL/L 10/01/2021 7:05 AM [facility] POTASSIUM S/P/B 4.5 3.5 - 5.1 MMOL/L 10/01/2021 7:05 AM [facility] CHLORIDE S/P/B 106 100 - 108 MMOL/L 10/01/2021 7:05 AM [facility] CO2 30.0 21 - 32 MMOL/L 10/01/2021 7:05 AM [facility] CALCIUM S/P/B 8.5 8.5 - 10.1 MG/DL 10/01/2021 7:05 AM [facility] BILIRUBIN TOTAL S/P/B 0.6 0.2 - 1.2 MG/DL 10/01/2021 7:05 AM [facility] TOTAL PROTEIN S/P/B 6.5 6.4 - 8.2 G/DL 10/01/2021 7:05 AM [facility] ALBUMIN S/P/B 2.9(L) 3.4 - 5.0 G/DL 10/01/2021 7:05 AM [facility] AST 29 15 - 37 U/L 10/01/2021 7:05 AM [facility] ALT 60 16 - 60 U/L 10/01/2021 7:05 AM [facility] ALKALINE PHOSPHATASE S/P/B 33(L) 50 - 136 U/L 10/01/2021 7:05 AM [facility] ANION GAP 3.0(L) 5 - 15 MMOL/L 10/01/2021 7:05 AM [facility] BUN CREATININE RATIO 2.7(L) 6 10/01/2021 7:05 AM [facility] A/G RATIO 0.8(L) 1.0 - 2.0 RATIO 10/01/2021 7:05 AM [facility] EGFR NON-AFR. AMER. >90 >90 ML/MIN/1.7 3 M2 10/01/2021 7:05 AM [facility] EGFR AFR. AMER. >90 >90 ML/MIN/1.7 3 M2 10/01/2021 7:05 AM [facility] Comment: NOTE: eGFR is not calculated for patients <18 years of age. This is an estimated GFR (CKD EPI) and should not be used for calculating drug doses. 10/01/2021 6:20 AM DERMATOLOGIST AND DERMATOPATHOLOGIST Delilah Schultz PA-C LABORATORY Final Result Performing Organization Address [facility]/ZIP Co de Phone Number [facility] [address] [place] [address], * CLOSTRIDIUM DIFFICILE (09/30/2021 4:04 PM DERMATOLOGIST AND DERMATOPATHOLOGIST) [facility]DH ANTIGEN NEGATIVE NEGATIVE 09/30/2021 4:50 PM DERMATOLOGIST AND DERMATOPATHOLOGIST [facility] C DIFFICILE TOXIN A&B (STOOL) NEGATIVE NEGATIVE 09/30/2021 4:50 PM [facility] COMMENT GDH NEGATIVE/TOXI N A & B NEGATIVE: NEGATIVE FOR TOXIGENIC C. DIFFICILE. GDH NEGATIVE/TOXI N A & B NEGATIVE: NEGATIVE FOR TOXIGENIC C. 09/30/2021 4:50 PM DERMATOLOGIST AND DERMATOPATHOLOGIST [facility] STOOL SPECIMEN / Unknown 09/30/2021 4:04 PM DERMATOLOGIST AND DERMATOPATHOLOGIST Tiffani Moreno MD BODY FLUIDS AND STOOLS ORDERABLE S Final Result [facility] [address] [place] [address], [place] [phone] * (ABNORMAL) COMPREHENSIVE METABOLIC PANEL (09/30/2021 7:40 AM DERMATOLOGIST AND DERMATOPATHOLOGIST) [facility] GLUCOSE 104(H) 70 - 99 MG/DL 09/30/2021 8:31 AM [facility] BUN 2(L) 7 - 18 MG/DL 09/30/2021 8:31 AM [facility] CREATININE S/P/B 0.70 0.7 - 1.3 MG/DL 09/30/2021 8:31 AM [facility] SODIUM S/P/B 140 136 - 145 MMOL/L 09/30/2021 8:31 AM [facility] POTASSIUM S/P/B 4.6 3.5 - 5.1 MMOL/L 09/30/2021 8:31 AM [facility] CHLORIDE S/P/B 105 100 - 108 MMOL/L 09/30/2021 8:31 AM [facility] CO2 27.8 21 - 32 MMOL/L 09/30/2021 8:31 AM [facility] CALCIUM S/P/B 8.8 8.5 - 10.1 MG/DL 09/30/2021 8:31 AM [facility] BILIRUBIN TOTAL S/P/B 0.9 0.2 - 1.2 MG/DL 09/30/2021 8:31 AM [facility] TOTAL PROTEIN S/P/B 6.2(L) 6.4 - 8.2 G/DL 09/30/2021 8:31 AM [facility] ALBUMIN S/P/B 2.7(L) 3.4 - 5.0 G/DL 09/30/2021 8:31 AM [facility] AST 43(H) 15 - 37 U/L 09/30/2021 8:31 AM [facility] ALT 70(H) 16 - 60 U/L 09/30/2021 8:31 AM [facility] ALKALINE PHOSPHATASE S/P/B 31(L) 50 - 136 U/L 09/30/2021 8:31 AM [facility] ANION GAP 7.2 5 - 15 MMOL/L 09/30/2021 8:31 AM [facility] BUN CREATININE RATIO 2.9(L) 6 - 26 09/30/2021 8:31 AM [facility] A/G RATIO 0.8(L) 1.0 - 2.0 RATIO 09/30/2021 8:31 AM [facility] EGFR NON-AFR. AMER. >90 >90 ML/MIN/1.7 3 M2 09/30/2021 8:31 AM [facility] EGFR AFR. AMER. >90 >90 ML/MIN/1.7 3 M2 09/30/2021 8:31 AM [facility] Comment: NOTE: eGFR is not calculated for patients <18 years of age. This is an estimated GFR (CKD EPI) and should not be used for calculating drug doses. 09/30/2021 7:40 AM DERMATOLOGIST AND DERMATOPATHOLOGIST Aneesh Mesa MD LABORATORY Final Result [facility] [address] [place] [address], [place] [phone] * (ABNORMAL) CBC W/DIFF AUTOMATED (09/30/2021 7:40 AM DERMATOLOGIST AND DERMATOPATHOLOGIST) WBC 5.8 4.4 - 11.0 x10'3/uL 09/30/2021 8:13 AM [facility] RBC 3.92(L) 4.50 - 5.90 x10'6/uL 09/30/2021 8:13 AM [facility] HGB 12.6(L) 14.0 - 17.5 G/DL 09/30/2021 8:13 AM [facility] HCT 37.3(L) 41.5 - 50.4 % 09/30/2021 8:13 AM [facility] MCV 95.2 80.0 - 96.0 FL 09/30/2021 8:13 AM [facility] MCH 32.1(H) 26.5 - 31.4 PG 09/30/2021 8:13 AM [facility] MCHC 33.8 31.9 - 34.8 G/DL 09/30/2021 8:13 AM [facility] RDW 13.2 12.3 - 14.3 % 09/30/2021 8:13 AM [facility] PLT 312 151 - 353 x10'3/uL 09/30/2021 8:13 AM [facility] MPV 10.6 9.7 - 11.9 FL 09/30/2021 8:13 AM [facility] RBC MORPHOLOGY NORMAL 09/30/2021 8:13 AM [facility] PLT MORPH. NORMAL 09/30/2021 8:13 AM [facility] WBC MORPHOLOGY NORMAL 09/30/2021 8:13 AM [facility] LYMPHOCYTES % 22.9 15.8 - 45.0 % 09/30/2021 8:13 AM [facility] NEUTROPHILS % 62.2 42.1 - 71.9 % 09/30/2021 8:13 AM [facility] MONOCYTES % 11.6 5.7 - 12.5 % 09/30/2021 8:13 AM [facility] EOSINOPHILS 2.4 0.0 - 5.6 % 09/30/2021 8:13 AM [facility] BASOPHILS 0.7 0.0 - 1.3 % 09/30/2021 8:13 AM [facility] ABS. NEUTROPHILS 3.59 1.40 - 6.00 x10'3/uL 09/30/2021 8:13 AM [facility] IMMATURE GRANS % 0.2 0.0 - 0.5 % 09/30/2021 8:13 AM [facility] ABS. LYMPHOCYTES 1.32 0.80 - 4.70 x10'3/uL 09/30/2021 8:13 AM [facility] 09/30/2021 7:40 AM DERMATOLOGIST AND DERMATOPATHOLOGIST us Aneesh Mesa MD LABORATORY Final Result [facility] [address] [place] [address], * (ABNORMAL) COMPREHENSIVE METABOLIC PANEL (09/29/2021 12:36 PM DERMATOLOGIST AND DERMATOPATHOLOGIST) GLUCOSE 115(H) 70 - 99 MG/DL 09/29/2021 1:04 PM [facility] BUN 3(L) 7 - 18 MG/DL 09/29/2021 1:04 PM [facility] CREATININE S/P/B 0.73 0.7 - 1.3 MG/DL 09/29/2021 1:04 PM [facility] SODIUM S/P/B 141 136 - 145 MMOL/L 09/29/2021 1:04 PM [facility] POTASSIUM S/P/B 3.7 3.5 - 5.1 MMOL/L 09/29/2021 1:04 PM [facility] CHLORIDE S/P/B 105 100 - 108 MMOL/L 09/29/2021 1:04 PM [facility] CO2 30.5 21 - 32 MMOL/L 09/29/2021 1:04 PM [facility] CALCIUM S/P/B 8.4(L) 8.5 - 10.1 MG/DL 09/29/2021 1:04 PM [facility] BILIRUBIN TOTAL S/P/B 0.9 0.2 - 1.2 MG/DL 09/29/2021 1:04 PM [facility] TOTAL PROTEIN S/P/B 6.6 6.4 - 8.2 G/DL 09/29/2021 1:04 PM [facility] ALBUMIN S/P/B 3.0(L) 3.4 - 5.0 G/DL 09/29/2021 1:04 PM [facility] AST 55(H) 15 - 37 U/L 09/29/2021 1:04 PM [facility] ALT 70(H) 16 - 60 U/L 09/29/2021 1:04 PM [facility] ALKALINE PHOSPHATASE S/P/B 32(L) 50 - 136 U/L 09/29/2021 1:04 PM [facility] ANION GAP 5.5 5 - 15 MMOL/L 09/29/2021 1:04 PM [facility] BUN CREATININE RATIO 4.1(L) 6 - 26 09/29/2021 1:04 PM [facility] [facility] A/G RATIO 0.8(L) 1.0 - 2.0 RATIO 09/29/2021 1:04 PM [facility] EGFR NON-AFR. AMER. >90 >90 ML/MIN/1.7 3 M2 09/29/2021 1:04 PM [facility] EGFR AFR. AMER. >90 >90 ML/MIN/1.7 3 M2 09/29/2021 1:04 PM [facility] Comment: NOTE: eGFR is not calculated for patients <18 years of age. This is an estimated GFR (CKD EPI) and should not be used for calculating drug doses. 09/29/2021 12:3 6 PM DERMATOLOGIST AND DERMATOPATHOLOGIST us Aneesh Mesa MD LABORATORY Final Result [facility] [address] [place] [address], [place] [phone] * (ABNORMAL) CBC W/DIFF AUTOMATED (09/29/2021 12:36 PM DERMATOLOGIST AND DERMATOPATHOLOGIST) WBC 6.5 4.4 - 11.0 x10'3/uL 09/29/2021 12:44 PM [facility] RBC 3.91(L) 4.50 - 5.90 x10'6/uL 09/29/2021 12:44 PM [facility] HGB 12.6(L) 14.0 - 17.5 G/DL 09/29/2021 12:44 PM [facility] HCT 37.4(L) 41.5 - 50.4 % 09/29/2021 12:44 PM [facility] MCV 95.7 80.0 - 96.0 FL 09/29/2021 12:44 PM [facility] MCH 32.2(H) 26.5 - 31.4 PG 09/29/2021 12:44 PM [facility] MCHC 33.7 31.9 - 34.8 G/DL 09/29/2021 12:44 PM [facility] RDW 13.2 12.3 - 14.3 % 09/29/2021 12:44 PM [facility] PLT 282 151 - 353 x10'3/uL 09/29/2021 12:44 PM [facility] MPV 9.9 9.7 - 11.9 FL 09/29/2021 12:44 PM [facility] RBC MORPHOLOGY NORMAL 09/29/2021 12:44 PM [facility] PLT MORPH. NORMAL 09/29/2021 12:44 PM [facility] WBC MORPHOLOGY NORMAL 09/29/2021 12:44 PM [facility] LYMPHOCYTES % 21.7 15.8 - 45.0 % 09/29/2021 12:44 PM [facility] NEUTROPHILS % 66.5 42.1 - 71.9 % 09/29/2021 12:44 PM [facility] MONOCYTES % 9.5 5.7 - 12.5 % 09/29/2021 12:44 PM [facility] EOSINOPHILS 1.5 0.0 - 5.6 % 09/29/2021 12:44 PM [facility] BASOPHILS 0.5 0.0 - 1.3 % 09/29/2021 12:44 PM [facility] ABS. NEUTROPHILS 4.33 1.40 - 6.00 x10'3/uL 09/29/2021 12:44 PM [facility] IMMATURE GRANS % 0.3 0.0 - 0.5 % 09/29/2021 12:44 PM [facility] ABS. LYMPHOCYTES 1.41 0.80 - 4.70 x10'3/uL 09/29/2021 12:44 PM DERMATOLOGIST AND DERMATOPATHOLOGIST [facility] 09/29/2021 12:3 6 PM DERMATOLOGIST AND DERMATOPATHOLOGIST us Aneesh Mesa MD LABORATORY Final Result [facility] [address] [place] [address], [place] [phone] * XR ABD KUB (09/29/2021 8:59 AM DERMATOLOGIST AND DERMATOPATHOLOGIST) Anatomical Region Laterality Modality Abdomen Radiographic Leola ging 09/29/2021 12:3 2 PM DERMATOLOGIST AND DERMATOPATHOLOGIST Impressions 09/29/2021 12:33 PM DERMATOLOGIST AND DERMATOPATHOLOGIST FINDINGS IMPRESSION : CHEST: ?? 1. ??The cardiac configuration is normal. Lung bases are clear, within the otvep-[id number]. ABDOMEN: 1. ??No free air below the [...] 09/29/2021 12:32 PM Narrative 09/29/2021 12:33 PM DERMATOLOGIST AND DERMATOPATHOLOGIST IMAGING STUDIES: ??XR ABD KUB ? DATE: ??09/29/2021 8:36 AM CLINICAL HISTORY: ??ileus ?? . . COMPARISON STUDIES: 11/27/2020. ?? Procedure Note Moncho Cheng MD - 09/29/2021 IMAGING STUDIES: XR ABD KUB DATE: 09/29/2021 8:36 AM CLINICAL HISTORY: ileus . . COMPARISON STUDIES: 11/27/2020. FINDINGS IMPRESSION : CHEST: 1. The cardiac configuration is normal. Lung bases are clear, within [id number]. ABDOMEN: 1. No free air below the [...] * (ABNORMAL) POTASSIUM, SERUM (09/28/2021 6:50 PM DERMATOLOGIST AND DERMATOPATHOLOGIST) Pathologist [facility] POTASSIUM S/P/B 3.2(L) 3.5 - 5.1 MMOL/L 09/28/2021 7:17 PM DERMATOLOGIST AND DERMATOPATHOLOGIST [facility] 09/28/2021 6:50 PM DERMATOLOGIST AND DERMATOPATHOLOGIST Lacey Barkley MD LABORATORY Final Result [facility] [address] [place] [address], * (ABNORMAL) COMPREHENSIVE METABOLIC PANEL (09/28/2021 9:11 AM DERMATOLOGIST AND DERMATOPATHOLOGIST) GLUCOSE 115(H) 70 - 99 MG/DL 09/28/2021 9:54 AM DERMATOLOGIST AND DERMATOPATHOLOGIST [facility] BUN 3(L) 7 - 18 MG/DL 09/28/2021 9:54 AM DERMATOLOGIST AND DERMATOPATHOLOGIST [facility] CREATININE S/P/B 0.82 0.7 - 1.3 MG/DL 09/28/2021 9:54 AM [facility] SODIUM S/P/B 142 136 - 145 MMOL/L 09/28/2021 9:54 AM [facility] POTASSIUM S/P/B 2.7(LL) 3.5 - 5.1 MMOL/L 09/28/2021 9:54 AM [facility] Comment: AT CALLED CRITICAL RESULTS AT [id number] TO AND READ BACK BY GINA LERMA [employer] CHLORIDE S/P/B 103 100 - 108 MMOL/L 09/28/2021 9:54 AM [facility] CO2 31.3 21 - 32 MMOL/L 09/28/2021 9:54 AM [facility] CALCIUM S/P/B 8.5 8.5 - 10.1 MG/DL 09/28/2021 9:54 AM [facility] BILIRUBIN TOTAL S/P/B 0.7 0.2 - 1.2 MG/DL 09/28/2021 9:54 AM [facility] TOTAL PROTEIN S/P/B 6.4 6.4 - 8.2 G/DL 09/28/2021 9:54 AM [facility] ALBUMIN S/P/B 2.7(L) 3.4 - 5.0 G/DL 09/28/2021 9:54 AM [facility] AST 26 15 - 37 U/L 09/28/2021 9:54 AM [facility] ALT 29 16 - 60 U/L 09/28/2021 9:54 AM [facility] ALKALINE PHOSPHATASE S/P/B 25(L) 50 - 136 U/L 09/28/2021 9:54 AM [facility] ANION GAP 7.7 5 - 15 MMOL/L 09/28/2021 9:54 AM DERMATOLOGIST AND DERMATOPATHOLOGIST [facility] BUN CREATININE RATIO 3.7(L) 6 - 26 09/28/2021 9:54 AM [facility] A/G RATIO 0.7(L) 1.0 - 2.0 RATIO 09/28/2021 9:54 AM [facility] EGFR NON-AFR. AMER. >90 >90 ML/MIN/1.7 3 M2 09/28/2021 9:54 AM [facility] EGFR AFR. AMER. >90 >90 ML/MIN/1.7 3 M2 09/28/2021 9:54 AM [facility] Comment: NOTE: eGFR is not calculated for patients <18 years of age. This is an estimated GFR (CKD EPI) and should not be used for calculating drug doses. 09/28/2021 9:11 AM DERMATOLOGIST AND DERMATOPATHOLOGIST Margarita Sloan MD LABORATORY Final Result [facility] [address] [place] [address], * (ABNORMAL) CBC W/DIFF AUTOMATED (09/28/2021 9:11 AM DERMATOLOGIST AND DERMATOPATHOLOGIST) WBC 6.1 4.4 - 11.0 x10'3/uL 09/28/2021 9:19 AM [facility] RBC 3.92(L) 4.50 - 5.90 x10'6/uL 09/28/2021 9:19 AM [facility] HGB 12.6(L) 14.0 - 17.5 G/DL 09/28/2021 9:19 AM [facility] HCT 36.8(L) 41.5 - 50.4 % 09/28/2021 9:19 AM [facility] MCV 93.9 80.0 - 96.0 FL 09/28/2021 9:19 AM [facility] MCH 32.1(H) 26.5 - 31.4 PG 09/28/2021 9:19 AM [facility] MCHC 34.2 31.9 - 34.8 G/DL 09/28/2021 9:19 AM [facility] RDW 13.0 12.3 - 14.3 % 09/28/2021 9:19 AM [facility] PLT 268 151 - 353 x10'3/uL 09/28/2021 9:19 AM [facility] MPV 10.3 9.7 - 11.9 FL 09/28/2021 9:19 AM [facility] RBC MORPHOLOGY NORMAL 09/28/2021 9:19 AM [facility] PLT MORPH. NORMAL 09/28/2021 9:19 AM [facility] WBC MORPHOLOGY NORMAL 09/28/2021 9:19 AM [facility] LYMPHOCYTES % 21.4 15.8 - 45.0 % 09/28/2021 9:19 AM [facility] NEUTROPHILS % 65.3 42.1 - 71.9 % 09/28/2021 9:19 AM [facility] MONOCYTES % 10.3 5.7 - 12.5 % 09/28/2021 9:19 AM [facility] EOSINOPHILS 2.0 0.0 - 5.6 % 09/28/2021 9:19 AM [facility] BASOPHILS 0.5 0.0 - 1.3 % 09/28/2021 9:19 AM [facility] ABS. NEUTROPHILS 4.01 1.40 - 6.00 x10'3/uL 09/28/2021 9:19 AM DERMATOLOGIST AND DERMATOPATHOLOGIST [facility] IMMATURE GRANS % 0.5 0.0 - 0.5 % 09/28/2021 9:19 AM DERMATOLOGIST AND DERMATOPATHOLOGIST [facility] ABS. LYMPHOCYTES 1.31 0.80 - 4.70 x10'3/uL 09/28/2021 9:19 AM DERMATOLOGIST AND DERMATOPATHOLOGIST [facility] 09/28/2021 9:11 AM DERMATOLOGIST AND DERMATOPATHOLOGIST Margarita Sloan MD LABORATORY Final Result [facility] [address] [place] [address], [place] [phone] * USE ECHOCARDIOGRAM (09/27/2021 2:34 PM DERMATOLOGIST AND DERMATOPATHOLOGIST) Anatomical Region Laterality Modality Cardiac Echocardiogram Lacey Barkley MD ECHO Final Result * XR ABD KUB (09/27/2021 2:27 PM DERMATOLOGIST AND DERMATOPATHOLOGIST) Anatomical Region Laterality Modality Abdomen Radiographic Leola ging 09/27/2021 4:08 PM DERMATOLOGIST AND DERMATOPATHOLOGIST Impressions 09/27/2021 4:09 PM DERMATOLOGIST AND DERMATOPATHOLOGIST FINDINGS IMPRESSION : CHEST: ?? 1. ??The cardiac configuration is normal. Lung bases are clear, within the [id number]. ABDOMEN: 1. ??No free air below the diaphragm. 2. ??Numerous dilated loops of small bowel either secondary to ileus or distal small bowel obstruction 3. ??Surgical changes right upper quadrant and left lower quadrant. Drain in the pelvis. 4. ??Degenerative changes of the lower lumbar spine and hips. Ordered By: MARGARITA SLONA Interpreted By: Moncho Cheng, 09/27/2021 4:08 PM Narrative 09/27/2021 4:09 PM DERMATOLOGIST AND DERMATOPATHOLOGIST IMAGING STUDIES: ??XR ABD KUB ? DATE: [...] is normal. Lung bases are clear, within [id number]. ABDOMEN: 1. No free air below the diaphragm. 2. Numerous dilated loops of small bowel either secondary to ileus ordistal small bowel obstruction 3. Surgical changes right upper quadrant and left lower quadrant. Drainin the pelvis. 4. Degenerative changes of the lower lumbar spine and hips. Ordered By: MARGARITA SLOAN Interpreted By: Moncoh Cheng, 09/27/2021 4:08 PM us Margarita Sloan MD GENERAL IMAGING Final Result * ECG 12 lead (09/27/2021 1:42 PM DERMATOLOGIST AND DERMATOPATHOLOGIST) 09/27/2021 1:42 PM DERMATOLOGIST AND DERMATOPATHOLOGIST Narrative [facility] RAD - 09/27/2021 7:43 PM DERMATOLOGIST AND DERMATOPATHOLOGIST ?[facility] ? Test Date: ?2021-09-27 Pat Name: ? MANDIE COTTER ? Department: ? Room: ? 1091 Gender: ? Male ? Chief Of Production: ?? : ?1955 ? Requested By: LACEY BARKLEY Order Number: [id number] ? Reading MD: ?? Ben Diego ? Measurements Intervals ?[place] ? Rate: ? 67 ? P: ?5 TX: ? 111 ?QRS: ?32 QRSD: ? 101 ?T: ?46 QT: ? 392 ? QTc: ?416 ? Interpretive Statements SINUS RHYTHM WITH SHORT TX INTERVAL NONSPECIFIC ST & T-WAVE ABNORMALITY Compared to ECG 09/26/2021 12:44:09 Short TX interval now present Atrial fibrillation no longer present Aberrant conduction of supraventricular beat(s) no longer present Ventricular premature complex(es) no longer present T-wave abnormality still present ATOLOGIST AND DERMATOPATHOLOGIST Procedure Note Ben Diego MD - 09/27/2021 [facility] Test Date: 2021-09-27 Pat Name: MANDIE COTTER Department: Room: 1091 Gender: Male Chief Of Production: : 1955 Requested By: LACEY BARKLEY Order Number: [id number] Reading MD: Ben Diego Measurements Intervals [place] Rate: 67 P: 5 TX: 111 QRS: 32 QRSD: 101 T: 46 QT: 392 QTc: 416 Interpretive Statements SINUS RHYTHM WITH SHORT TX INTERVAL NONSPECIFIC ST & T-WAVE ABNORMALITY Compared to ECG 09/26/2021 12:44:09 Short TX interval now present Atrial fibrillation no longer present Aberrant conduction of supraventricular beat(s) no longer present Ventricular premature complex(es) no longer present T-wave abnormality still present ATOLOGIST AND DERMATOPATHOLOGIST Lacey Barkley MD ECG ORDERABLES Final Result [facility] * (ABNORMAL) COMPREHENSIVE METABOLIC PANEL (09/27/2021 8:27 AM DERMATOLOGIST AND DERMATOPATHOLOGIST) [facility] GLUCOSE 140(H) 70 - 99 MG/DL 09/27/2021 9:10 AM [facility] BUN 5(L) 7 - 18 MG/DL 09/27/2021 9:10 AM [facility] CREATININE S/P/B 0.78 0.7 - 1.3 MG/DL 09/27/2021 9:10 AM [facility] SODIUM S/P/B 142 136 - 145 MMOL/L 09/27/2021 9:10 AM [facility] POTASSIUM S/P/B 3.5 3.5 - 5.1 MMOL/L 09/27/2021 9:10 AM [facility] CHLORIDE S/P/B 104 100 - 108 MMOL/L 09/27/2021 9:10 AM [facility] CO2 30.4 21 - 32 MMOL/L 09/27/2021 9:10 AM [facility] CALCIUM S/P/B 8.6 8.5 - 10.1 MG/DL 09/27/2021 9:10 AM [facility] BILIRUBIN TOTAL S/P/B 0.9 0.2 - 1.2 MG/DL 09/27/2021 9:10 AM [facility] TOTAL PROTEIN S/P/B 6.7 6.4 - 8.2 G/DL 09/27/2021 9:10 AM [facility] ALBUMIN S/P/B 3.1(L) 3.4 - 5.0 G/DL 09/27/2021 9:10 AM [facility] AST 30 15 - 37 U/L 09/27/2021 9:10 AM [facility] ALT 24 16 - 60 U/L 09/27/2021 9:10 AM [facility] ALKALINE PHOSPHATASE S/P/B 24(L) 50 - 136 U/L 09/27/2021 9:10 AM [facility] ANION GAP 7.6 5 - 15 MMOL/L 09/27/2021 9:10 AM [facility] BUN CREATININE RATIO 6.4 6 - 26 09/27/2021 9:10 AM [facility] A/G RATIO 0.9(L) 1.0 - 2.0 RATIO 09/27/2021 9:10 AM [facility] EGFR NON-AFR. AMER. >90 >90 ML/MIN/1.7 3 M2 09/27/2021 9:10 AM [facility] EGFR AFR. AMER. >90 >90 ML/MIN/1.7 3 M2 09/27/2021 9:10 AM [facility] Comment: NOTE: eGFR is not calculated for patients <18 years of age. This is an estimated GFR (CKD EPI) and should not be used for calculating drug doses. 09/27/2021 8:27 AM DERMATOLOGIST AND DERMATOPATHOLOGIST us Margarita Sloan MD LABORATORY Final Result [facility] [address] [place] [address], [place] [phone] * (ABNORMAL) CBC W/DIFF AUTOMATED (09/27/2021 8:27 AM DERMATOLOGIST AND DERMATOPATHOLOGIST) WBC 7.0 4.4 - 11.0 x10'3/uL 09/27/2021 8:56 AM [facility] RBC 4.13(L) 4.50 - 5.90 x10'6/uL 09/27/2021 8:56 AM [facility] HGB 13.4(L) 14.0 - 17.5 G/DL 09/27/2021 8:56 AM [facility] HCT 39.5(L) 41.5 - 50.4 % 09/27/2021 8:56 AM [facility] MCV 95.6 80.0 - 96.0 FL 09/27/2021 8:56 AM [facility] MCH 32.4(H) 26.5 - 31.4 PG 09/27/2021 8:56 AM [facility] MCHC 33.9 31.9 - 34.8 G/DL 09/27/2021 8:56 AM [facility] RDW 13.2 12.3 - 14.3 % 09/27/2021 8:56 AM [facility] PLT 267 151 - 353 x10'3/uL 09/27/2021 8:56 AM [facility] MPV 11.6 9.7 - 11.9 FL 09/27/2021 8:56 AM [facility] RBC MORPHOLOGY NORMAL 09/27/2021 8:56 AM [facility] PLT MORPH. NORMAL 09/27/2021 8:56 AM [facility] WBC MORPHOLOGY NORMAL 09/27/2021 8:56 AM [facility] LYMPHOCYTES % 22.4 15.8 - 45.0 % 09/27/2021 8:56 AM [facility] NEUTROPHILS % 66.3 42.1 - 71.9 % 09/27/2021 8:56 AM [facility] MONOCYTES % 8.3 5.7 - 12.5 % 09/27/2021 8:56 AM [facility] EOSINOPHILS 2.3 0.0 - 5.6 % 09/27/2021 8:56 AM [facility] BASOPHILS 0.6 0.0 - 1.3 % 09/27/2021 8:56 AM [facility] ABS. NEUTROPHILS 4.61 1.40 - 6.00 x10'3/uL 09/27/2021 8:56 AM [facility] IMMATURE GRANS % 0.1 0.0 - 0.5 % 09/27/2021 8:56 AM [facility] ABS. LYMPHOCYTES 1.56 0.80 - 4.70 x10'3/uL 09/27/2021 8:56 AM DERMATOLOGIST AND DERMATOPATHOLOGIST [facility] 09/27/2021 8:27 AM DERMATOLOGIST AND DERMATOPATHOLOGIST Margarita Sloan MD LABORATORY Final Result [facility] [address] [place] [address], * ECG 12 lead (09/26/2021 12:44 PM DERMATOLOGIST AND DERMATOPATHOLOGIST) 09/26/2021 12:4 4 PM DERMATOLOGIST AND DERMATOPATHOLOGIST Narrative [facility] RAD - 09/26/2021 9:49 PM DERMATOLOGIST AND DERMATOPATHOLOGIST ?[facility] ? Test Date: ?2021-09-26 Pat Name: ? MANDIE COTTER ? Department: ? Room: ? 1091 Gender: ? Male ? Chief Of Production: ?? : ?1955 ? Requested By: LACEY BARKLEY Order Number: [id number] ? Reading : ?? Toño Lovett ? Measurements Intervals ?Keene ? Rate: ? 127 ?P: ? TX: ? 0 ?QRS: ?9 QRSD: ? 91 [...] now present Sinus rhythm no longer present ATOLOGIST AND DERMATOPATHOLOGIST Procedure Note Toño Lovett [facility] - [facility]: 2021-09-26 Pat Name: MANDIE COTTER Department: Room: 1091 Gender: Male Chief Of Production: : 1955 Requested By: LACEY BARKLEY Order Number: [id number] Reading MD: Toño Lovett Measurements Intervals Keene Rate: 127 P: TX: 0 QRS: 9 QRSD: 91 T: 32 QT: 306 QTc: 445 Interpretive Statements ATRIAL FIBRILLATION WITH RAPID VENTRICULAR RESPONSE WITH ABERRANTCONDUCTION OR VENTRICULAR PREMATURE COMPLEXES NONSPECIFIC ST & T-WAVE ABNORMALITY ABNORMAL RHYTHM ECG Compared to ECG 09/24/2021 12:41:26 Ventricular premature complex(es) now present Aberrant conduction of supraventricular beat(s) now present T-wave abnormality now present Sinus rhythm no longer present ATOLOGIST AND DERMATOPATHOLOGIST us Lacey Barkley MD ECG ORDERABLES Final Result [facility] RAD * (ABNORMAL) COMPREHENSIVE METABOLIC PANEL (09/25/2021 6:40 AM DERMATOLOGIST AND DERMATOPATHOLOGIST) GLUCOSE 104(H) 70 - 99 MG/DL 09/25/2021 7:06 AM [facility] BUN 11 7 - 18 MG/DL 09/25/2021 7:06 AM [facility] CREATININE S/P/B 0.74 0.7 - 1.3 MG/DL 09/25/2021 7:06 AM [facility] SODIUM S/P/B 144 136 - 145 MMOL/L 09/25/2021 7:06 AM [facility] POTASSIUM S/P/B 4.4 3.5 - 5.1 MMOL/L 09/25/2021 7:06 AM [facility] CHLORIDE S/P/B 109(H) 100 - 108 MMOL/L 09/25/2021 7:06 AM [facility] CO2 25.6 21 - 32 MMOL/L 09/25/2021 7:06 AM [facility] CALCIUM S/P/B 8.5 8.5 - 10.1 MG/DL 09/25/2021 7:06 AM [facility] BILIRUBIN TOTAL S/P/B 1.2 0.2 - 1.2 MG/DL 09/25/2021 7:06 AM [facility] TOTAL PROTEIN S/P/B 6.7 6.4 - 8.2 G/DL 09/25/2021 7:06 AM [facility] ALBUMIN S/P/B 3.0(L) 3.4 - 5.0 G/DL 09/25/2021 7:06 AM [facility] AST 25 15 - 37 U/L 09/25/2021 7:06 AM [facility] ALT 26 16 - 60 U/L 09/25/2021 7:06 AM [facility] ALKALINE PHOSPHATASE S/P/B 29(L) 50 - 136 U/L 09/25/2021 7:06 AM [facility] ANION GAP 9.4 5 - 15 MMOL/L 09/25/2021 7:06 AM [facility] BUN CREATININE RATIO 14.9 6 - 26 09/25/2021 7:06 AM [facility] A/G RATIO 0.8(L) 1.0 - 2.0 RATIO 09/25/2021 7:06 AM [facility] EGFR NON-AFR. AMER. >90 >90 ML/MIN/1.7 3 M2 09/25/2021 7:06 AM [facility] EGFR AFR. AMER. >90 >90 ML/MIN/1.7 3 M2 09/25/2021 7:06 AM [facility] Comment: NOTE: eGFR is not calculated for patients <18 years of age. This is an estimated GFR (CKD EPI) and should not be used for calculating drug doses. 09/25/2021 6:40 AM DERMATOLOGIST AND DERMATOPATHOLOGIST Porsche Lord NP LABORATORY Final Result [facility] [address] [place] [address], [place] [phone] * (ABNORMAL) CBC W/DIFF AUTOMATED (09/25/2021 6:40 AM DERMATOLOGIST AND DERMATOPATHOLOGIST) WBC 8.7 4.4 - 11.0 x10'3/uL 09/25/2021 6:52 AM DERMATOLOGIST AND DERMATOPATHOLOGIST [facility] RBC 4.11(L) 4.50 - 5.90 x10'6/uL 09/25/2021 6:52 AM [facility] HGB 13.2(L) 14.0 - 17.5 G/DL 09/25/2021 6:52 AM [facility] HCT 39.9(L) 41.5 - 50.4 % 09/25/2021 6:52 AM [facility] MCV 97.1(H) 80.0 - 96.0 FL 09/25/2021 6:52 AM [facility] MCH 32.1(H) 26.5 - 31.4 PG 09/25/2021 6:52 AM DERMATOLOGIST AND DERMATOPATHOLOGIST [facility] MCHC 33.1 31.9 - 34.8 G/DL 09/25/2021 6:52 AM [facility] RDW 13.1 12.3 - 14.3 % 09/25/2021 6:52 AM [facility] PLT 229 151 - 353 x10'3/uL 09/25/2021 6:52 AM [facility] MPV 10.5 9.7 - 11.9 FL 09/25/2021 6:52 AM [facility] RBC MORPHOLOGY NORMAL 09/25/2021 6:52 AM [facility] PLT MORPH. NORMAL 09/25/2021 6:52 AM [facility] WBC MORPHOLOGY NORMAL 09/25/2021 6:52 AM [facility] LYMPHOCYTES % 14.2(L) 15.8 - 45.0 % 09/25/2021 6:52 AM [facility] NEUTROPHILS % 76.9(H) 42.1 - 71.9 % 09/25/2021 6:52 AM [facility] MONOCYTES % 7.3 5.7 - 12.5 % 09/25/2021 6:52 AM [facility] EOSINOPHILS 0.6 0.0 - 5.6 % 09/25/2021 6:52 AM [facility] BASOPHILS 0.5 0.0 - 1.3 % 09/25/2021 6:52 AM [facility] ABS. NEUTROPHILS 6.67(H) 1.40 - 6.00 x10'3/uL 09/25/2021 6:52 AM [facility] IMMATURE GRANS % 0.5 0.0 - 0.5 % 09/25/2021 6:52 AM [facility] ABS. LYMPHOCYTES 1.23 0.80 - 4.70 x10'3/uL 09/25/2021 6:52 AM [facility] 09/25/2021 6:40 AM DERMATOLOGIST AND DERMATOPATHOLOGIST us Porsche Lord NP LABORATORY Final Result [facility] [address] [place] [address], [place] [phone] * XR CHEST PORTABLE (09/24/2021 3:19 PM DERMATOLOGIST AND DERMATOPATHOLOGIST) Anatomical Region Laterality Modality Chest Radiographic Leola ging 09/24/2021 3:23 PM DERMATOLOGIST AND DERMATOPATHOLOGIST Impressions 09/24/2021 3:24 PM DERMATOLOGIST AND DERMATOPATHOLOGIST FINDINGS AND IMPRESSION: CHEST: 1. ??The cardiomediastinal [...] bowel noted at the margin of the [id number] Ordered By: MARGARITA SLOAN Interpreted By: Moncho Cheng, 09/24/2021 3:23 PM Narrative 09/24/2021 3:24 PM DERMATOLOGIST AND DERMATOPATHOLOGIST IMAGING STUDIES: ??XR CHEST PORTABLE ? EXAM [...] bowel noted at the margin of the [id number] Ordered By: MARGARITA SLOAN Interpreted By: Moncho Cheng, 09/24/2021 3:23 PM us Margarita Sloan MD GENERAL IMAGING Final Result * (ABNORMAL) GASTRIC OCCULT BLOOD (09/24/2021 3:00 PM DERMATOLOGIST AND DERMATOPATHOLOGIST) GASTRIC OCCULT BLOOD POSITIVE(A ) NEGATIVE 09/24/2021 3:36 PM DERMATOLOGIST AND DERMATOPATHOLOGIST [facility] PH GASTRIC 7 1.3 - 7.8 09/24/2021 3:36 PM DERMATOLOGIST AND DERMATOPATHOLOGIST [facility] 09/24/2021 3:00 PM DERMATOLOGIST AND DERMATOPATHOLOGIST Margarita Sloan MD BODY FLUIDS AND STOOLS ORDER ZAMZAM Final Result Performing Organization Address City/State/[facility] Co de Phone Number [facility] [address] [place] [address], * ECG 12 lead (09/24/2021 12:41 PM DERMATOLOGIST AND DERMATOPATHOLOGIST) 09/24/2021 12:4 1 PM DERMATOLOGIST AND DERMATOPATHOLOGIST Narrative [facility] RAD - 09/26/2021 9:09 AM DERMATOLOGIST AND DERMATOPATHOLOGIST ?[facility] ? Test Date: ?2021-09-24 Pat Name: ? MANDIE COTTER ? Department: ? Room: ? 109 Gender: ? Male ? Chief Of Production: ?? : ?1955 ? Requested By: PORSCHE LORD Order Number: [id number] ? Reading MD: ?? Toño Lovett ? Measurements Intervals ?[place] ? Rate: ? 93 ? P: ?30 TX: ? 136 ?QRS: ?13 QRSD: ? 98 ? T: ?53 QT: ? 353 ? QTc: ?439 ? Interpretive Statements SINUS RHYTHM Compared to ECG 03/18/2021 10:08:00 T-wave abnormality no longer present ATOLOGIST AND DERMATOPATHOLOGIST Procedure Note Toño Lovett MD - 09/26/2021 [facility] Test Date: 2021-09-24 Pat Name: MANDIE COTTER Department: Room: 109 Gender: Male Chief Of Production: : 1955 Requested By: PORSCHE LORD Order Number: [id number] Reading MD: Toño Lovett Measurements Intervals [place] Rate: 93 P: 30 TX: 136 QRS: 13 QRSD: 98 T: 53 QT: 353 QTc: 439 Interpretive Statements SINUS RHYTHM Compared to ECG 03/18/2021 10:08:00 T-wave abnormality no longer present ATOLOGIST AND DERMATOPATHOLOGIST us Porsche Lord [employer] ECG ORDERABLES Final Result [facility] * (ABNORMAL) COMPREHENSIVE METABOLIC PANEL (09/24/2021 6:08 AM DERMATOLOGIST AND DERMATOPATHOLOGIST) GLUCOSE 98 70 - 99 MG/DL 09/24/2021 6:49 AM [facility] [facility] BUN 12 7 - 18 MG/DL 09/24/2021 6:49 AM [facility] CREATININE S/P/B 0.79 0.7 - 1.3 MG/DL 09/24/2021 6:49 AM [facility] SODIUM S/P/B 142 136 - 145 MMOL/L 09/24/2021 6:49 AM [facility] POTASSIUM S/P/B 4.0 3.5 - 5.1 MMOL/L 09/24/2021 6:49 AM [facility] CHLORIDE S/P/B 106 100 - 108 MMOL/L 09/24/2021 6:49 AM [facility] CO2 24.5 21 - 32 MMOL/L 09/24/2021 6:49 AM [facility] CALCIUM S/P/B 8.4(L) 8.5 - 10.1 MG/DL 09/24/2021 6:49 AM [facility] BILIRUBIN TOTAL S/P/B 1.6(H) 0.2 - 1.2 MG/DL 09/24/2021 6:49 AM [facility] TOTAL PROTEIN S/P/B 6.6 6.4 - 8.2 G/DL 09/24/2021 6:49 AM [facility] ALBUMIN S/P/B 3.2(L) 3.4 - 5.0 G/DL 09/24/2021 6:49 AM [facility] AST 25 15 - 37 U/L 09/24/2021 6:49 AM [facility] ALT 27 16 - 60 U/L 09/24/2021 6:49 AM [facility] ALKALINE PHOSPHATASE S/P/B 37(L) 50 - 136 U/L 09/24/2021 6:49 AM [facility] ANION GAP 11.5 5 - 15 MMOL/L 09/24/2021 6:49 AM [facility] BUN CREATININE RATIO 15.2 6 - 26 09/24/2021 6:49 AM [facility] A/G RATIO 0.9(L) 1.0 - 2.0 RATIO 09/24/2021 6:49 AM [facility] EGFR NON-AFR. AMER. >90 >90 ML/MIN/1.7 3 M2 09/24/2021 6:49 AM [facility] EGFR AFR. AMER. >90 >90 ML/MIN/1.7 3 M2 09/24/2021 6:49 AM [facility] Comment: NOTE: eGFR is not calculated for patients <18 years of age. This is an estimated GFR (CKD EPI) and should not be used for calculating drug doses. 09/24/2021 6:08 AM DERMATOLOGIST AND DERMATOPATHOLOGIST Porsche Lord NP LABORATORY Final Result [facility] [address] [place] [address], * (ABNORMAL) CBC W/DIFF AUTOMATED (09/24/2021 6:08 AM DERMATOLOGIST AND DERMATOPATHOLOGIST) WBC 9.2 4.4 - 11.0 x10'3/uL 09/24/2021 6:30 AM [facility] RBC 4.13(L) 4.50 - 5.90 x10'6/uL 09/24/2021 6:30 AM [facility] HGB 13.4(L) 14.0 - 17.5 G/DL 09/24/2021 6:30 AM [facility] HCT 39.8(L) 41.5 - 50.4 % 09/24/2021 6:30 AM [facility] MCV 96.4(H) 80.0 - 96.0 FL 09/24/2021 6:30 AM [facility] MCH 32.4(H) 26.5 - 31.4 PG 09/24/2021 6:30 AM [facility] MCHC 33.7 31.9 - 34.8 G/DL 09/24/2021 6:30 AM [facility] RDW 13.0 12.3 - 14.3 % 09/24/2021 6:30 AM [facility] PLT 233 151 - 353 x10'3/uL 09/24/2021 6:30 AM [facility] MPV 10.4 9.7 - 11.9 FL 09/24/2021 6:30 AM [facility] RBC MORPHOLOGY NORMAL 09/24/2021 6:30 AM [facility] PLT MORPH. NORMAL 09/24/2021 6:30 AM [facility] WBC MORPHOLOGY NORMAL 09/24/2021 6:30 AM [facility] LYMPHOCYTES % 16.7 15.8 - 45.0 % 09/24/2021 6:30 AM [facility] NEUTROPHILS % 72.9(H) 42.1 - 71.9 % 09/24/2021 6:30 AM [facility] MONOCYTES % 9.5 5.7 - 12.5 % 09/24/2021 6:30 AM [facility] EOSINOPHILS 0.3 0.0 - 5.6 % 09/24/2021 6:30 AM [facility] BASOPHILS 0.4 0.0 - 1.3 % 09/24/2021 6:30 AM [facility] ABS. NEUTROPHILS 6.66(H) 1.40 - 6.00 x10'3/uL 09/24/2021 6:30 AM [facility] IMMATURE GRANS % 0.2 0.0 - 0.5 % 09/24/2021 6:30 AM [facility] ABS. LYMPHOCYTES 1.53 0.80 - 4.70 x10'3/uL 09/24/2021 6:30 AM [facility] 09/24/2021 6:08 AM DERMATOLOGIST AND DERMATOPATHOLOGIST Porsche Lord NP LABORATORY Final Result [facility] [address] [place] [address], * (ABNORMAL) CBC W/DIFF AUTOMATED (09/23/2021 5:45 AM DERMATOLOGIST AND DERMATOPATHOLOGIST) [facility] Signature WBC 8.1 4.4 - 11.0 x10'3/uL 09/23/2021 6:09 AM [facility] RBC 4.03(L) 4.50 - 5.90 x10'6/uL 09/23/2021 6:09 AM [facility] HGB 12.8(L) 14.0 - 17.5 G/DL 09/23/2021 6:09 AM [facility] HCT 38.1(L) 41.5 - 50.4 % 09/23/2021 6:09 AM [facility] MCV 94.5 80.0 - 96.0 FL 09/23/2021 6:09 AM [facility] MCH 31.8(H) 26.5 - 31.4 PG 09/23/2021 6:09 AM [facility] MCHC 33.6 31.9 - 34.8 G/DL 09/23/2021 6:09 AM [facility] RDW 12.9 12.3 - 14.3 % 09/23/2021 6:09 AM [facility] PLT 221 151 - 353 x10'3/uL 09/23/2021 6:09 AM [facility] MPV 10.6 9.7 - 11.9 FL 09/23/2021 6:09 AM [facility] RBC MORPHOLOGY NORMAL 09/23/2021 6:09 AM [facility] PLT MORPH. NORMAL 09/23/2021 6:09 AM [facility] WBC MORPHOLOGY NORMAL 09/23/2021 6:09 AM [facility] LYMPHOCYTES % 17.9 15.8 - 45.0 % 09/23/2021 6:09 AM [facility] NEUTROPHILS % 70.9 42.1 - 71.9 % 09/23/2021 6:09 AM [facility] MONOCYTES % 10.3 5.7 - 12.5 % 09/23/2021 6:09 AM [facility] EOSINOPHILS 0.1 0.0 - 5.6 % 09/23/2021 6:09 AM [facility] BASOPHILS 0.4 0.0 - 1.3 % 09/23/2021 6:09 AM [facility] ABS. NEUTROPHILS 5.71 1.40 - 6.00 x10'3/uL 09/23/2021 6:09 AM [facility] IMMATURE GRANS % 0.4 0.0 - 0.5 % 09/23/2021 6:09 AM [facility] ABS. LYMPHOCYTES 1.44 0.80 - 4.70 x10'3/uL 09/23/2021 6:09 AM [facility] 09/23/2021 5:45 AM DERMATOLOGIST AND DERMATOPATHOLOGIST us Margarita Sloan MD LABORATORY Final Result [facility] [address] [place] [address], [place] [phone] * (ABNORMAL) COMPREHENSIVE METABOLIC PANEL (09/23/2021 5:45 AM DERMATOLOGIST AND DERMATOPATHOLOGIST) Pathologist [facility] GLUCOSE 102(H) 70 - 99 MG/DL 09/23/2021 6:23 AM [facility] BUN 10 7 - 18 MG/DL 09/23/2021 6:23 AM [facility] CREATININE S/P/B 0.97 0.7 - 1.3 MG/DL 09/23/2021 6:23 AM [facility] SODIUM S/P/B 141 136 - 145 MMOL/L 09/23/2021 6:23 AM [facility] POTASSIUM S/P/B 4.1 3.5 - 5.1 MMOL/L 09/23/2021 6:23 AM [facility] CHLORIDE S/P/B 106 100 - 108 MMOL/L 09/23/2021 6:23 AM [facility] CO2 26.5 21 - 32 MMOL/L 09/23/2021 6:23 AM [facility] CALCIUM S/P/B 8.0(L) 8.5 - 10.1 MG/DL 09/23/2021 6:23 AM [facility] BILIRUBIN TOTAL S/P/B 1.3(H) 0.2 - 1.2 MG/DL 09/23/2021 6:23 AM [facility] TOTAL PROTEIN S/P/B 5.9(L) 6.4 - 8.2 G/DL 09/23/2021 6:23 AM [facility] ALBUMIN S/P/B 3.1(L) 3.4 - 5.0 G/DL 09/23/2021 6:23 AM [facility] AST 22 15 - 37 U/L 09/23/2021 6:23 AM [facility] ALT 29 16 - 60 U/L 09/23/2021 6:23 AM [facility] ALKALINE PHOSPHATASE S/P/B 37(L) 50 - 136 U/L 09/23/2021 6:23 AM [facility] ANION GAP 8.5 5 - 15 MMOL/L 09/23/2021 6:23 AM [facility] BUN CREATININE RATIO 10.3 6 - 26 09/23/2021 6:23 AM [facility] A/G RATIO 1.1 1.0 - 2.0 RATIO 09/23/2021 6:23 AM [facility] EGFR NON-AFR. AMER. 80(L) >90 ML/MIN/1.7 3 M2 09/23/2021 6:23 AM [facility] EGFR AFR. AMER. >90 >90 ML/MIN/1.7 3 M2 09/23/2021 6:23 AM [facility] Comment: NOTE: eGFR is not calculated for patients <18 years of age. This is an estimated GFR (CKD EPI) and should not be used for calculating drug doses. 09/23/2021 5:45 AM DERMATOLOGIST AND DERMATOPATHOLOGIST Margarita Sloan MD LABORATORY Final Result [facility] [address] [place] [address], [place] [phone] * TYPE & SCREEN (09/22/2021 6:30 AM DERMATOLOGIST AND DERMATOPATHOLOGIST) ABO/RH O POSITIVE 09/22/2021 6:51 AM DERMATOLOGIST AND DERMATOPATHOLOGIST [facility] ANTIBODY SCREEN NEGATIVE 09/22/2021 7:14 AM DERMATOLOGIST AND DERMATOPATHOLOGIST [facility] SAMPLE EXPIRATION 09/25/2021,2 359 09/22/2021 6:51 AM DERMATOLOGIST AND DERMATOPATHOLOGIST [facility] 09/22/2021 6:30 AM DERMATOLOGIST AND DERMATOPATHOLOGIST Margarita Sloan MD BLOOD BANK TEST ORDERABLES F inal Result [facility] [address] [place] [address], * Pathology (09/22/2021 12:00 AM DERMATOLOGIST AND DERMATOPATHOLOGIST) PATHOLOGY [facility] ? Department of Laboratory Medicine ?[address] [facility] ?[place] [address] ? , extension [phone] ? Pathology Report ? Surgical Pathology Report Name: MANDIE COTTER ? Specimen #: [id number] Age: 9 1955 (Age: 66) ?Location: [id number] Sex: M ?Procedure Date: 09/22/2021 Hospital #: [id number] ?Date Received: 09/23/2021 Date Reported: 09/24/2021 Provider: [...] erythematous and no discrete lesions are identified. ??Linux Systems Administrator tissue is submitted in cassette A1. ??The second piece of tissue is 3 x 1.5 x 1 cm. ??It is also erythematous. ??Sections reveal disrupted bowel tissue with no discrete lesions noted grossly. ??Linux Systems Administrator tissue is submitted in cassette A2. B) Received in formalin, labeled with a patient label and as anastomotic donuts is a 1.8 cm diameter, 1.0 cm long portion of bowel tissue with multiple sutures and senthil. ??The tissue is erythematous but no discrete lesions are noted on section. ??Linux Systems Administrator tissue is submitted in cassette B1. FINAL DIAGNOSIS: A) PROXIMAL/DESCEND ING COLOSTOMY, RESECTION: ? - COLOSTOMY WITHOUT DIAGNOSTIC ABNORMALITY. B) COLON, ANASTOMOTIC DONUTS, EXCISION: ? - COLONIC TISSUE WITHOUT DIAGNOSTIC ABNORMALITY. Electronically Signed Out ? Jay Cabezas M.D. [facility] Tissue specimen (specimen) COLON STRUCTURE / Unknown 09/22/2021 1:00 PM DERMATOLOGIST AND DERMATOPATHOLOGIST Comment:Reverse ostomy Tissue specimen (specimen) COLON STRUCTURE / Unknown 09/22/2021 2:00 PM DERMATOLOGIST AND DERMATOPATHOLOGIST us Margarita Sloan MD PATHOLOGY/CYTOLOGY ORDERABLE S Final Result [facility] [address] [place] [id number], [id number] documented in this encounter Visit Diagnoses Not [...] 1645, Until Discontinued Given 10/02/2021 8:26 AM DERMATOLOGIST AND DERMATOPATHOLOGIST 5 mg Given 10/01/2021 8:04 AM DERMATOLOGIST AND DERMATOPATHOLOGIST 5 mg Given 09/30/2021 8:41 AM DERMATOLOGIST AND DERMATOPATHOLOGIST 5 mg BUpivacaine 0.25%-EPINEPHrine 1:200,000-lidocaine 1%-EPINEPHrine 1:100,000 solution As needed, Starting on Mon09/22/21 at 1335, Until Mon09/22/21 at 1446, Intra-Op Given 09/22/2021 1:35 PM DERMATOLOGIST AND DERMATOPATHOLOGIST 5 mLs Operative Site ceFAZolin (ANCEF) in NS 1000 mL irrigation solution As needed, Starting on Mon09/22/21 at 0956, Until Mon09/22/21 at 1446, Intra-Op Given 09/22/2021 9:56 AM DERMATOLOGIST AND DERMATOPATHOLOGIST 3 g Operative Site diphenhydrAMINE (BENADRYL) injection [...] abdominal wall., Post-Op Given 10/01/2021 4:01 PM DERMATOLOGIST AND DERMATOPATHOLOGIST 40 mg Left Lower Abdomen Given 09/30/2021 3:44 PM DERMATOLOGIST AND DERMATOPATHOLOGIST 40 mg Le ft Lower Abdomen Given 09/29/2021 4:12 PM DERMATOLOGIST AND DERMATOPATHOLOGIST 40 mg Ri ght Lower Abdomen HYDROcodone-acetaminophen (NORCO) 5-325 MG tablet 1 tablet 1 tablet, Oral, Every 4 hours PRN, Moderate pain (Scale 4 - 7), Starting on Yamilex 09/23/21 at 1200, Until 10/02/21 at 1701, Administer as Analgesic choice number moderate., Post-Op Given 09/24/2021 8:27 AM DERMATOLOGIST AND DERMATOPATHOLOGIST 1 tablet Given 09/23/2021 11:23 PM DERMATOLOGIST AND DERMATOPATHOLOGIST 1 tablet HYDROmorphone (DILAUDID) injection 0.5 mg [...] oral analgesic, Post-Op Given 09/24/2021 3:16 AM DERMATOLOGIST AND DERMATOPATHOLOGIST 1 mg Given 09/23/2021 9:19 PM DERMATOLOGIST AND DERMATOPATHOLOGIST 1 mg Given 09/23/2021 2:36 AM DERMATOLOGIST AND DERMATOPATHOLOGIST 1 mg indocyanine green (IC-GREEN) injection As needed, Starting on Mon09/22/21 at 1407, Until Mon09/22/21 at 1446, Intra-Op Given 09/22/2021 2:07 PM DERMATOLOGIST AND DERMATOPATHOLOGIST 5 mg metoclopramide (REGLAN) injection 10 mg 10 mg, Intravenous, Every 6 hours, First dose (after last modification) on 09/27/21 at 0900, Until Discontinued, Discontinue IV Reglan once able to take PO, Post-Op Given 10/02/2021 8:25 AM DERMATOLOGIST AND DERMATOPATHOLOGIST 10 mg Given 10/02/2021 3:02 AM DERMATOLOGIST AND DERMATOPATHOLOGIST 10 mg Given 10/01/2021 9:46 PM DERMATOLOGIST AND DERMATOPATHOLOGIST 10 mg metoprolol tartrate (LOPRESSOR) tablet 50 mg 50 mg, Oral, Every 8 hours, First dose (after last modification) on Mon09/26/21 at 1900, Until Discontinued Given 10/02/2021 12:57 PM DERMATOLOGIST AND DERMATOPATHOLOGIST 50 mg Given 10/02/2021 3:02 AM DERMATOLOGIST AND DERMATOPATHOLOGIST 50 mg Given 10/01/2021 7:38 PM DERMATOLOGIST AND DERMATOPATHOLOGIST 50 mg ondansetron (ZOFRAN) injection 4 mg 4 mg, Intravenous, Every 8 hours PRN, Nausea, Vomiting, Starting on Mon09/22/21 at 1607, Until 10/02/21 at 1701, Discontinue IV Zofran once able to take PO, Post-Op Given 09/24/2021 8:27 AM DERMATOLOGIST AND DERMATOPATHOLOGIST 4 mg Given 09/24/2021 12:45 AM DERMATOLOGIST AND DERMATOPATHOLOGIST 4 mg oxyCODONE-acetaminophen (PERCOCET) 5-325 MG tablet [...] least 2 minutes. Given 10/02/2021 8:25 AM DERMATOLOGIST AND DERMATOPATHOLOGIST 40 mg Given 10/01/2021 8:05 AM DERMATOLOGIST AND DERMATOPATHOLOGIST 40 mg Given 09/30/2021 8:41 AM DERMATOLOGIST AND DERMATOPATHOLOGIST 40 mg phenol (CHLORASEPTIC) spray 1 spray 1 spray, Mouth/Throat, As needed, Pain, Starting on 09/25/21 at 2325, Until 10/02/21 at 1701 Given 09/28/2021 2:53 AM DERMATOLOGIST AND DERMATOPATHOLOGIST 1 spray Given 09/26/2021 7:58 PM DERMATOLOGIST AND DERMATOPATHOLOGIST 1 spray Given 09/25/2021 11:33 PM DERMATOLOGIST AND DERMATOPATHOLOGIST 1 spray prochlorperazine (COMPAZINE) injection 10 mg [...] ondansetron or metoclopramide Given 09/24/2021 11:51 AM DERMATOLOGIST AND DERMATOPATHOLOGIST 10 mg sodium chloride 0.9% bolus infusion SOLN 500 mL 500 mL, Intravenous, Administer over 60 Minutes, PRN, if urine output less than 30 mL/ hr, Starting on 09/22/21 at 1607, Until 10/02/21 at 1701, May repeat x 1 in first 24 hours for post-op only, Post-Op documented in this encounter Active and Recently Administered Medications Times are shown in DERMATOLOGIST AND DERMATOPATHOLOGIST. Scheduled Medication Order 09/30/2021 10/01/2021 10/02/2021 amLODIPine [...] Post-Op documented in this encounter Care Teams Ring Spinner Relationship Specialty Start Date End Date Lorie Castanon MD PCP - General INTERNAL MEDICINE 01/15/20 02/09/23 documented as of this encounter
--- OUTSIDE RECORDS SUMMARY | 2024-11-02 09:16 | XMS_ITS | Encounter Summary ---
Author Organization [facility] Address [address] [place] [address]. 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 Author Establish Plan for Symptom Monitoring General No Jesi Mixon i, RN Monitor - demonstrates appropriate technique of care of indwelling urinary catheter and new ostomy General No Jesi Cochran RN documented as of this encounter Visit Diagnoses Not on filedocumented in this encounter Care Teams Merchandise Team Manager Relationship Specialty Start Date End Date Lorie Chan MD PCP - General INTERNAL MEDICINE 01/15/20 02/09/23 documented as of this encounter
--- OUTSIDE RECORDS SUMMARY | 2024-11-02 09:16 | XMS_ITS | Encounter Summary ---
Author Organization [facility] Address [address] [place] [address]. [place], [place] [address] [place] [address] Care Team Providers Care Chipping Machine Operator Name Role Phone Lorie Chan MD Primary Care Provider [phone] Encounter Details Date Type Department Care Team [...] file Legal Sex Male 9:58 PM FOREST FIRE EQUIPMENT OPERATOR Gender Identity Not on file [...] SERVICES Medical Group Family & Internal Medicine [facility] [address] [place] [address] [place] [address] [place] [address] 10/22/2025 9:15 AM FOREST FIRE EQUIPMENT OPERATOR Office Visit [facility] [address] Mily Gan MD [address] [address] documented as of this encounter Goals Goal Patient Goal Type Associated Problems Recent Progress Patient-Stated? Author Establish Plan for Symptom Monitoring General Jesi Lagunas i, RN Monitor - demonstrates appropriate technique of care of indwelling urinary catheter and new ostomy General No Jesi Cochran RN documented as of this encounter Visit Diagnoses Not on filedocumented in this encounter Care Teams Chipping Machine Operator Relationship Specialty Start Date End Date Lorie Chan MD PCP - General INTERNAL MEDICINE 01/15/20 02/09/23 documented as of this encounter
--- OUTSIDE RECORDS SUMMARY | 2024-11-02 09:16 | XMS_ITS | Encounter Summary ---
Author Organization [facility] Address [address] [place] [address]. [place] [address] [place] [address] Care Team Providers Care Sales Associate Name Role Phone Lorie Chan MD Primary Care Provider [phone] Encounter Details Date Type Department Care Team (Late st Contact Info) Description 08/23/2021 Orders Only [facility] Medical [facility] General Surgery - [address], [address] [place] [address] Federico Mayer MD [address] [address] Social History Tobacco Use Types Packs/Day Years [...] file Legal Sex Male 9:58 PM DIGITAL DEVELOPER Gender Identity Not on file Sexual [...] 7:00 AM CDT Office Visit [facility] Medical [facility] Family & Internal Medicine [facility] [id number] [place] [phone] [place] [address] [place], [place] [phone] 10/22/2025 9:15 AM DIGITAL DEVELOPER Office Visit [facility] [address] Mily Gan MD [facility] [address] [place] [address] documented as of this encounter Goals Goal Patient Goal Type Associated Problems Recent Progress Patient-Stated? Author Establish Plan for Symptom Monitoring General Jesi Lagunas i RN Monitor - demonstrates appropriate technique of care of indwelling urinary catheter and new ostomy General No Jesi Cochran RN documented as of this encounter Visit Diagnoses Diagnosis Status post Neel procedure ([facility])- Primary Perforated diverticulum documented in this encounter Care Teams Sales Associate Relationship Specialty Start Date End Date Lorie Chan MD PCP - General INTERNAL MEDICINE 01/15/20 02/09/23 documented as of this encounter
--- OUTSIDE RECORDS SUMMARY | 2024-11-02 09:16 | XMS_ITS | Encounter Summary ---
Author Organization [facility] Address [address] [place] [address]. [place] [address] [place] [address] Care Team Providers Care Interior Design Project Manager Name Role Phone Lorie Chan MD Primary Care Provider [phone] Moraima Toledo RN Unavailable [phone] Reason for Visit * Reason Onset Date Comments Hospital Follow Up 09/23/2021 Encounter Details Date Type Department Care Team (Late st Contact Info) Description 09/23/2021 Patient Outreach [facility] Medical Group Family & Internal Medicine [facility] [id number] [place] [phone] Moraima Toledo, RN [address] [place] [address] Hospital Follow Up Social History [...] on file Legal Sex Male 9:58 PM MUSIC WRITER Gender Identity Not on file Sexual Orientation Not on file COVID-19 Exposure Response Date Recorded In the last month, have you been in contact with someone who was confirmed or suspected to have Coronavirus / COVID-19? No / Unsure 09/22/2021 7:51 PM MUSIC WRITER documented as of this encounter Functional Status * RETIRED Are you deaf or do you have serious difficulty hearing Answer Date of Assessment Author Status No 09/22/2021 7:58 PM MUSIC WRITER Activ e * RETIRED Are you blind or do you have serious difficulty seeing, even when wearing glasses? Answer Date of Assessment Author Status No 09/22/2021 7:58 PM MUSIC WRITER Activ e * Do you have serious difficulty walking or climbing stairs? Answer Date of Assessment Author Status No 09/22/2021 7:58 PM MUSIC WRITER Nancy Perez R N Active * Do you have difficulty dressing or bathing? Answer Date of Assessment Author Status No 09/22/2021 7:58 PM MUSIC WRITER Nancy Perez R Susan Active * Because of a physical, mental, or emotional condition, do you have difficulty doing errands alone such as visiting a doctor's office or shopping? Answer Date of Assessment Author Status No 09/22/2021 7:58 PM MUSIC WRITER Nancy Perez R N Active documented as of this encounter Mental Status * Because of a physical, mental, or emotional condition, do you have serious difficulty concentrating, remembering, or making decisions? Answer Entry Date Author Status No 09/22/2021 7:58 PM MUSIC WRITER Nancy Perez R N Active documented in this encounter Progress Notes * Moraima Toledo RN - 09/23/2021 8:31 AM CST Patient admitted to [facility] on 09/22/21 for Cystoscopy, bilateral ureteral catheteization. CC team willcomplete TCM call when D/C. Thank you. C WRITER * Xi Page RN - 09/23/2021 8:31 AM CST Noted thanks C WRITER documented in this encounter Plan of Treatment Upcoming Encounters Date Type Department Care Team (Late st Contact Info) Description 01/27/2025 7:00 AM CDT Office Visit [facility] Medical Group Family & Internal Medicine - [place] [address] [place] [address] [place] [address] [place], [place] [phone] 10/22/2025 9:15 AM MUSIC WRITER Office Visit [facility] [address] [place] [address] Mily Gan MD [place] [phone] [place] [address] documented as of this encounter [...] on filedocumented in this encounter Care Teams Interior Design Project Manager Relationship Specialty Start Date End Date Lorie Chan MD PCP - General INTERNAL MEDICINE 01/15/20 02/09/23 Moraima Toledo RN [address] [place] [address] Crewman Armoured Personnel Carrier [id number] (Ambulatory) REGISTERED NURSE 09/23/21 documented as of this encounter
--- OUTSIDE RECORDS SUMMARY | 2024-11-02 09:16 | XMS_ITS | Encounter Summary ---
Author Organization [facility] Address [address] [place] [address]. 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 Author Establish Plan for Symptom Monitoring General Jesi Lagunas i, RN Monitor - demonstrates appropriate technique of care of indwelling urinary catheter and new ostomy General No Jesi Cochran RN documented as of this encounter Visit Diagnoses Not on filedocumented in this encounter Care Teams Public Health Educator Relationship Specialty Start Date End Date Lorie Chan MD PCP - General INTERNAL MEDICINE 01/15/20 02/09/23 documented as of this encounter
--- OUTSIDE RECORDS SUMMARY | 2024-11-02 09:16 | XMS_ITS | Encounter Summary ---
Author Organization [facility] Address [address] [place] [address]. [place] [address] [place] [address] Care Team Providers Care Grain Picker Name Role Phone Lorie Chan MD Primary Care Provider [phone] Encounter Details Date Type Department Care Team (Late st Contact Info) Description 07/23/2021 Orders Only [facility] General Surgery - [address], [address] [place] [address] Federico Mayer MD [address] [address] Social History Tobacco Use Types Packs/Day Years [...] on file Legal Sex Male 9:58 PM BOTTOM POLISHER Gender Identity Not on file Sexual Orientation [...] 01/27/2025 7:00 AM CDT Office Visit [facility] Family & Internal Medicine [facility] [address] [place] [address] [place] [address] [place] [phone] 10/22/2025 9:15 AM BOTTOM POLISHER Office Visit [facility] [address] Mily Gan MD [facility] [address] [place] [address] documented as of this encounter Goals Goal Patient Goal Type Associated Problems Recent Progress Patient-Stated? Author Establish Plan for Symptom Monitoring General Jesi Lagunas i RN Monitor - demonstrates appropriate technique of care of indwelling urinary catheter and new ostomy General No Jesi Cochran RN documented as of this encounter Visit Diagnoses Diagnosis Status post Neel procedure ([facility])- Primary documented in this encounter Care Teams Grain Picker Relationship Specialty Start Date End Date Lorie Chan MD PCP - General INTERNAL MEDICINE 01/15/20 02/09/23 documented as of this encounter
--- OUTSIDE RECORDS SUMMARY | 2024-11-02 09:16 | XMS_ITS | Encounter Summary ---
Author Organization [facility] Address [address] [place] [address]. [place] [address] [place] [address] Care Team Providers Care Deputy Sheriff Building Guard Name Role Phone Jeremy Castanon MD Primary Care Provider Reason for Visit * Auth/Cert Specialty Diagnoses / Procedures Referred By Shelby jama Referred To Contact Diagnoses status post neel Procedures colonoscopy via rectum and ostomy Referral ID Status Reason Start Date Expiration Date Visits Re quested Visits Authorized [id number] 1 1 Encounter Details Date Type Department Care Team (Late st Contact Info) Description 08/13/2021 9:00 AM CDT - 08/13/2021 9:51 AM CDT Surgery [facility] [address] [place] [address] Margarita Sloan MD [address] [address] colonoscopy via rectum and ostomy with polypectomy and biopsy Surgery Details Date/Time Status Location OR Service Patient Class Case Class Case Type Trauma Case? 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 * Colonoscopy Discharge Instructions (Macedonian) * Moderate Sedation in Adults Discharge Instructions (Macedonian) documented in this encounter Medications at Time [...] SolutionIndications :Status post Neel procedure ([facility]) Take 177 mLs by mouth [...] during recuperation were discussed with the patient/family/personal national account representative. Reasonable alternatives to the patient's proposed procedure/surgery including benefits, risks, and side effects related to the alternatives and the risks related to not receiving the proposed care were also discussed with the patient/family/personal national account representative. Questions were answered and the patient/family/personal national account representative verbalized understanding and desires to proceed. [...] Right [facility] ??? HERNIA REPAIR [facility] ??? NECK/CHEST PROCEDURE UNLISTED Right [facility], re-built right side of neck. ??? SMALL INTESTINE SURGERY bowel rupture ??? TOTAL KNEE ARTHROPLASTY Bilateral ZANA Partial KR, done @ [facility] Social History Tobacco Use ??? Smoking [...] Status post Neel procedure ([facility]) Recommendations and Plan: Mandie Cotter [...] name: Mandie Cotter Date of : 1955 [place] Time out Complete: Yes Consent Obtained: Yes Surgeon: Margarita Sloan MD Survey And Mapping Technician: Circulating Nurse 1: Cyn Burleson RN Scrub Person 1: Heather Nicole RN Anesthesia Present: Yes Type of Anesthesia: Monitored Anesthesia Care Mechanical Ventilation: No Medication Used: Refer to anesthesia notes Pre-Procedure Diagnosis: Colon cancer screening Post Procedure Diagnosis: Hyperplastic appearing rectal polyps, mild proctitis Date of Last Colonoscopy: Over 10 years ago Colonoscopy: Complete colonoscopy through stoma and rectum Quality of prep: Excellent [place] bowel prep score 9 Procedure Device: Fiber-optic [...] Medical Group Family & Internal Medicine - [place] [address] [place] [address] [place] [address] [place] [address] 10/22/2025 9:15 AM RECRUITING AND SELECTION CONSULTANT Office Visit [facility] [address] Mily Gan MD [address] [address] documented as of this [...] * Pathology (08/13/2021 12:00 AM CDT) PATHOLOGY [facility] ? Department of Laboratory Medicine ?[address] ?[place] [address] ? , extension [phone] ? Pathology Report ? Surgical Pathology Report Name: MANDIE COTTER ? Specimen #: [id number] Age: 9 1955 (Age: 66) ?Location: [facility] Sex: M ?Procedure Date: 08/13/2021 [facility] #: [id number] ?Date Received: 08/16/2021 Date Reported: 08/17/2021 Provider: [...] Out ? Paulo Melton M.D. [facility] Tissue specimen (specimen) COLON STRUCTURE / Unknown 08/13/2021 9:50 AM CDT Tissue specimen (specimen) COLON STRUCTURE / Unknown 08/13/2021 9:52 AM CDT Tissue specimen (specimen) COLON STRUCTURE / Unknown 08/13/2021 9:53 AM CDT us Margarita Sloan MD PATHOLOGY/CYTOLOGY ORDERABLE S Final Result [facility] [address] [place] [address], [place] [phone] [id number] documented in this encounter Visit Diagnoses Not [...] 0847 (New Bag - Prov ider: Cindy Fraah RN)0950 (Paused - Provider: Mandie Paul CRNA - Comment: Switch to gravity)0951 (Restarted - Provider: Mandie Paul CRNA)1033 (Infusion Stop Time - Provider: Cindy Farah, GINA) documented in this encounter Care Teams Deputy Sheriff Building Guard Relationship Specialty Start Date End Date Jeremy Castanon MD PCP - General INTERNAL MEDICINE 01/15/20 02/09/23 documented as of this encounter
--- OUTSIDE RECORDS SUMMARY | 2024-11-02 09:16 | XMS_ITS | Encounter Summary ---
Author Organization [facility] Address [address] [place] [address]. 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 Gender Identity Not on file Sexual [...] [facility] Internal Medicine [facility] [address] [place] [address] [place] [address] [place] [address] 10/22/2025 9:15 AM PEARL GLUE OPERATOR Office Visit [facility] [address] [place] [address] Mily Gan MD [place] [place] [address] documented as of this encounter Goals Goal [...] - 986 PG/ML 07/07/2021 12:04 PM CDT [facility] FOLATE >20.0 8.6 - 58.9 NG/ML 07/07/2021 12:04 PM CDT [facility] 07/07/2021 10:3 8 AM CDT us Lorie Chan MD LABORATORY Final Result [facility] [address] [place] [address], [place] [phone] * TSH W/REFLEX (07/07/2021 10:38 AM CDT) TSH 1.649 0.358 - 3.74 uIU/ML 07/07/2021 12:04 PM CDT [facility] Comment: HIGH DOSES OF BIOTIN MAY INTERFERE WITH THIS TEST RESULT. CORRELATION TO CLINICAL HISTORY AND PRESENTATION RECOMMENDED. FREE T4 NOT INDICATED 07/07/2021 10:3 8 AM CDT us Lorie Chan MD LABORATORY Final Result Performing Organization Address [facility]/ZIP Co de Phone Number [facility] [address] [place] [address], [place] [phone] * PROSTATE SPECIFIC ANTIGEN,SCREENING (07/07/2021 10:38 AM CDT) PSA 1.10 <4.00 NG/ML 07/07/2021 11:22 AM CDT [facility] Comment: Test was performed using the Siemens method. ??Results obtained with other assay methods or kits cannot be used interchangeably with results obtained by the Siemens method. 07/07/2021 10:3 8 AM CDT us Lorie Chan MD LABORATORY Final Result Performing Organization Address City/[facility]/ZIP Co de Phone Number [facility] [address] [place] [address], [place] [phone] * LIPID PANEL (07/07/2021 10:38 AM CDT) CHOLESTEROL 137 <200.0 MG/DL 07/07/2021 12:04 PM CDT [facility] TRIGLYCERIDES 95 <150 MG/DL 07/07/2021 12:04 PM CDT [facility] HDL 52 >40.0 MG/DL 07/07/2021 12:04 PM [facility] LDL (CALCULATED) 66 <100 MG/DL 07/07/20 12:04 PM T [facility] NON HDL CHOLESTEROL 85 <130 MG/DL 07/07 12:04 [facility] CHOL/HDL RATIO 2.6 0.0 - 4.5 07/07/2021 12:04 [facility] VLDL CALCULATION 19 5 - 55 MG/DL 07/07/2021 12:04 PM [facility] LIPID INTERPRETATION 07/07/2021 12:04 [facility] Comment: [facility] REPORT RECOMMENDATIONS: ?ADULT ?CHILD ??LOW RISK: [...] LABORATORY Final Result [facility] [address] [place] [address], * (ABNORMAL) COMPREHENSIVE METABOLIC PANEL (07/07/2021 10:38 AM CDT) GLUCOSE 100(H) 70 - 99 MG/DL 07/07/2021 12:04 PM CDT [facility] BUN 12 7 - 18 MG/DL 07/07/2021 12:04 PM CDT [facility] CREATININE S/P/B 0.95 0.7 - 1.3 MG/DL 07/07/2021 12:04 PM CDT [facility] SODIUM S/P/B 142 136 - 145 MMOL/L 07/07/2021 12:04 PM CDT [facility] POTASSIUM S/P/B 5.3(H) 3.5 - 5.1 MMOL/L 07/07/2021 12:04 PM CDT [facility] CHLORIDE S/P/B 106 100 - 108 MMOL/L 07/07/2021 12:04 PM CDT [facility] CO2 33.1(H) 21 - 32 MMOL/L 07/07/2021 12:04 PM CDT [facility] CALCIUM S/P/B 9.2 8.5 - 10.1 MG/DL 07/07/2021 12:04 PM [facility] BILIRUBIN TOTAL S/P/B 0.8 0.2 - 1.2 MG/DL 07/07/2021 12:04 PM [facility] TOTAL PROTEIN S/P/B 7.9 6.4 - 8.2 G/DL 07/07/2021 12:04 PM [facility] ALBUMIN S/P/B 3.7 3.4 - 5.0 G/DL 07/07/2021 12:04 PM [facility] AST 24 15 - 37 U/L 07/07/2021 12:04 PM [facility] ALT 30 16 - 60 U/L 07/07/2021 12:04 PM [facility] ALKALINE PHOSPHATASE S/P/B 53 50 - 136 U/L 07/07/2021 12:04 PM [facility] ANION GAP 2.9(L) 5 - 15 MMOL/L 07/07/2021 12:04 PM [facility] BUN CREATININE RATIO 12.6 6 - 26 07/07/2021 12:04 PM [facility] A/G RATIO 0.9(L) 1.0 - 2.0 RATIO 07/07/2021 12:04 PM [facility] EGFR NON-AFR. AMER. 83(L) >90 ML/MIN/1.7 3 M2 07/07/2021 12:04 PM [facility] EGFR AFR. AMER. >90 >90 ML/MIN/1.7 3 M2 07/07/2021 12:04 PM [facility] Comment: NOTE: eGFR is not calculated for patients <18 years of age. This is an estimated GFR (CKD EPI) and should not be used for calculating drug doses. 07/07/2021 10:3 8 AM CDT Lorie Chan MD LABORATORY Final Result [facility] [address] [place] [address], * (ABNORMAL) CBC W/DIFF AUTOMATED (07/07/2021 10:38 AM CDT) WBC 4.5 4.4 - 11.0 x10'3/uL 07/07/2021 10:56 AM CDT [facility] RBC 4.70 4.50 - 5.90 x10'6/uL 07/07/2021 10:56 AM CDT [facility] HGB 14.8 14.0 - 17.5 G/DL 07/07/2021 10:56 AM CDT [facility] HCT 44.4 41.5 - 50.4 % 07/07/2021 10:56 AM CDT [facility] MCV 94.5 80.0 - 96.0 FL 07/07/2021 10:56 AM CDT [facility] MCH 31.5(H) 26.5 - 31.4 PG 07/07/2021 10:56 AM CDT [facility] MCHC 33.3 31.9 - 34.8 G/DL 07/07/2021 10:56 AM CDT [facility] RDW 13.3 12.3 - 14.3 % 07/07/2021 10:56 AM CDT [facility] PLT 275 151 - 353 x10'3/uL 07/07/2021 10:56 AM CDT [facility] MPV 10.2 9.7 - 11.9 FL 07/07/2021 10:56 AM CDT [facility] RBC MORPHOLOGY NORMAL 07/07/2021 10:56 AM CDT [facility] PLT MORPH. NORMAL 07/07/2021 10:56 AM CDT [facility] WBC MORPHOLOGY NORMAL 07/07/2021 10:56 AM CDT [facility] LYMPHOCYTES % 37.0 15.8 - 45.0 % 07/07/2021 10:56 AM CDT [facility] NEUTROPHILS % 48.6 42.1 - 71.9 % 07/07/2021 10:56 AM CDT [facility] MONOCYTES % 11.5 5.7 - 12.5 % 07/07/2021 10:56 AM CDT [facility] EOSINOPHILS 1.8 0.0 - 5.6 % 07/07/2021 10:56 AM CDT [facility] BASOPHILS 0.9 0.0 - 1.3 % 07/07/2021 10:56 AM CDT [facility] ABS. NEUTROPHILS TOTAL 2.21 1.40 - 6.00 x10'3/uL 07/07/2021 10:56 AM CDT [facility] IMMATURE GRANS % 0.2 0.0 - 0.5 % 07/07/2021 10:56 AM CDT [facility] ABS. LYMPHOCYTES 1.68 0.80 - 4.70 x10'3/uL 07/07/2021 10:56 AM CDT [facility] 07/07/2021 10:3 8 AM CDT us Lorie Chan MD LABORATORY Final Result [facility] [address] [place] [address], [place] [phone] documented in this encounter Visit Diagnoses Diagnosis Mixed hyperlipidemia Prostate cancer screening Special screening for malignant neoplasm of prostate documented in this encounter Care Teams Quality Control Checker Relationship Specialty Start Date End Date Lorie Chan MD PCP - General INTERNAL MEDICINE 01/15/20 02/09/23 documented as of this encounter
--- OUTSIDE RECORDS SUMMARY | 2024-11-02 09:16 | XMS_ITS | Encounter Summary ---
Author Organization [facility] Address [address] [place] [address]. 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 Author Establish Plan for Symptom Monitoring General Jesi Lagunas i, RN Monitor - demonstrates appropriate technique of care of indwelling urinary catheter and new ostomy General Jesi Ye RN documented as of this encounter Visit Diagnoses Not on filedocumented in this encounter Care Teams Transaction Processor Relationship Specialty Start Date End Date Lorie Chan MD PCP - General INTERNAL MEDICINE 01/15/20 02/09/23 documented as of this encounter
--- OUTSIDE RECORDS SUMMARY | 2024-11-02 09:16 | XMS_ITS | Encounter Summary ---
Author Organization [facility] Address [address] [place] [address]. [place] [address] [place] [address] Care Team Providers Care Dial Marker Name Role Phone Lorie Castanon MD Primary Care Provider [phone] Reason for Visit * Reason Comments Follow Up States having some i ssues with his stoma. also alot of flatus. 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 COLOSTOMY reversable ??? HERNIA REPAIR Right [facility] ??? HERNIA REPAIR Left [facility] ??? NECK/CHEST PROCEDURE UNLISTED Right [facility], re-built right side of neck. ??? SMALL INTESTINE SURGERY bowel rupture ??? TOTAL KNEE ARTHROPLASTY Bilateral ZANA Partial KR, done @ [facility] Social History Tobacco Use ??? Smoking [...] Status post Neel procedure ([facility]) Recommendations and Plan: Natan Patel is a [...] Medical Group Family & Internal Medicine - [place] [address] [place] [address] [place] [address] [place], [place] [phone] 10/22/2025 9:15 AM POLE TESTER Office Visit [facility] [address] Mily Gan MD [place] [place] [address] documented as of this encounter Goals Goal Patient Goal Type Associated Problems Recent Progress Patient-Stated? Author Establish Plan for Symptom Monitoring General No Jesi Mixon i RN Monitor - demonstrates appropriate technique of care of indwelling urinary catheter and new ostomy General eJsi Ye RN documented as of this encounter Visit Diagnoses Diagnosis Status post Neel procedure ([facility])- Primary documented in this encounter Care Teams Dial Marker Relationship Specialty Start Date End Date Lorie Castanon MD PCP - General INTERNAL MEDICINE 01/15/20 02/09/23 documented as of this encounter
--- OUTSIDE RECORDS SUMMARY | 2024-11-02 09:16 | XMS_ITS | Encounter Summary ---
Author Organization [facility] Address [address] [place] [address]. 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 Author Establish Plan for Symptom Monitoring General No Jesi Mixon i, RN Monitor - demonstrates appropriate technique of care of indwelling urinary catheter and new ostomy General No Jesi Cochran RN documented as of this encounter Visit Diagnoses Not on filedocumented in this encounter Care Teams Machine Quilt Stuffer Relationship Specialty Start Date End Date Lorie Chan MD PCP - General INTERNAL MEDICINE 01/15/20 02/09/23 documented as of this encounter
--- OUTSIDE RECORDS SUMMARY | 2024-11-02 09:16 | XMS_ITS | Encounter Summary ---
Author Organization [facility] Address [address] [place] [address]. 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 Gender Identity Not on file Sexual [...] Description 01/27/2025 7:00 AM CDT Office Visit [facility] Family & Internal Medicine [facility] [address] [place] [address] [place] [address] [place], [place] [phone] 10/22/2025 9:15 AM PLANETARIUM SKY SHOW TECHNICIAN Office Visit [facility] [address] Mily Gan MD [facility] [address] [place] [address] documented as of this encounter Goals Goal [...] antibiotics documented in this encounter Care Teams Head Of Acquisitions Relationship Specialty Start Date End Date Lorie Chan MD PCP - General INTERNAL MEDICINE 01/15/20 02/09/23 documented as of this encounter
--- OUTSIDE RECORDS SUMMARY | 2024-11-02 09:16 | XMS_ITS | Encounter Summary ---
Author Organization [facility] Address [address] [place] [address]. 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 No / Unsure 09/22/2021 7:51 PM ENERGY SPECIALIST documented as of this encounter Functional [...] Medical Group Family & Internal Medicine - [place] [address] [place] [address] [place] [address] [place], [place] [id number] 10/22/2025 9:15 AM ENERGY SPECIALIST Office Visit [facility] [address] [place] [address] Mily Gan MD [address] [place] [address] documented as of this encounter Goals Goal Patient Goal Type Associated Problems Recent Progress Patient-Stated? Author Establish Plan for Symptom Monitoring General Jesi Lagunas i RN Monitor - demonstrates appropriate technique of care of indwelling urinary catheter and new ostomy General No Jesi Cochran RN documented as of this encounter Visit Diagnoses Not on filedocumented in this encounter Care Teams Head [place] Relationship Specialty Start Date End Date Lorie Chan MD PCP - General INTERNAL MEDICINE 01/15/20 02/09/23 documented as of this encounter
--- OUTSIDE RECORDS SUMMARY | 2024-11-02 09:16 | XMS_ITS | Encounter Summary ---
Author Organization [facility] Address [address] [place] [address]. 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 Author Establish Plan for Symptom Monitoring General Jesi Lagunas i, RN Monitor - demonstrates appropriate technique of care of indwelling urinary catheter and new ostomy General No Jesi Cochran RN documented as of this encounter Visit Diagnoses Not on filedocumented in this encounter Care Teams Roll Inspector Relationship Specialty Start Date End Date Lorie Chan MD PCP - General INTERNAL MEDICINE 01/15/20 02/09/23 documented as of this encounter
--- OUTSIDE RECORDS SUMMARY | 2024-11-02 09:16 | XMS_ITS | Encounter Summary ---
Author Organization [facility] Address [address] [place] [address]. 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 Stated [facility] released him since he is independent with [...] needed. Patient verbalizes understanding. This will complete director career services's phone calls at this time. Plan of [...] CPAP ??? Pharyngoesophageal dysphagia ??? Bowel perforation (CMS/[facility]) ??? Perforated diverticulum ??? Status post Neel procedure ([facility]) Medications: Current Outpatient Medications Medication Sig Dispense [...] ??? Cholecalciferol (VITAMIN D) 50 MCG (1999 [place]) Cap Take 25 mcg by mouth daily. [...] Medical Group Family & Internal Medicine - [place] [address] [place] [address] [place] [address] [place], [place] [phone] 10/22/2025 9:15 AM FILM EDITOR SUPERVISOR Office Visit [facility] [address] Mily Gan MD [address] [phone] documented as of this encounter Goals Goal Patient Goal Type Associated Problems Recent Progress Patient-Stated? Author Establish Plan for Symptom Monitoring General No Jesi Mixon i RN Monitor - demonstrates appropriate technique of care of indwelling urinary catheter and new ostomy General No Jesi Cochran RN documented as of this encounter Visit Diagnoses Not on filedocumented in this encounter Care Teams Operations Research Director Relationship Specialty Start Date End Date Lorie Chan MD PCP - General INTERNAL MEDICINE 01/15/20 02/09/23 documented as of this encounter
--- OUTSIDE RECORDS SUMMARY | 2024-11-02 09:16 | XMS_ITS | Encounter Summary ---
Author Organization [facility] Address [address] [place] [address]. [place], [place] [address] [place] [address] Care Team Providers Care Parent Coach Name Role Phone Lorie Castanon MD Primary Care Provider [phone] Reason for Visit * Reason Comments Follow Up QPA 6 MONTH FOLLOW U P / LABS / AND OTHER ISSUES Encounter Details Date Type Department Care Team (Late st Contact Info) Description 07/14/2021 8:00 AM CDT Office Visit [facility] Medical Group Family & Internal Medicine [facility] [address] [place] [address] L[place]anon [place] [id number] [place] [address] Follow Up (QPA 6 MONTH FOLLOW [...] on file Legal Sex Male 9:58 PM SYSTEM SUPPORT ANALYST Gender Identity Not on file Sexual [...] [facility] [place] ??? HERNIA REPAIR Left [facility] ??? NECK/CHEST PROCEDURE UNLISTED Right [facility], re-built right side of neck. ??? SMALL INTESTINE SURGERY bowel rupture ??? TOTAL KNEE ARTHROPLASTY Bilateral ZANA Partial KR, done @ [facility] Social History Socioeconomic History ??? Marital [...] Gatherings with Friends and Family: ??? Attends Gnosticism Services: ??? Active Member of Clubs or [...] Family & Internal Medicine [facility] [address] [place] [address] [place] [address] [place], [place] [phone] 10/22/2025 9:15 AM SYSTEM SUPPORT ANALYST Office Visit [facility] [address] [place] [address] Mily Gan MD Three [facility] [address] [place] [address] documented as of this encounter [...] hazards to health Mixed hyperlipidemia Colostomy status ([facility]) Colostomy status BMI 25.0-25.9,adult Body Mass Index 25.0-25.9, adult Need for immunization against influenza Need for prophylactic vaccination and inoculation against influenza documented in this encounter Care Teams Parent Coach Relationship Specialty Start Date End Date Lorie Castanon MD PCP - General INTERNAL MEDICINE 01/15/20 02/09/23 documented as of this encounter
--- OUTSIDE RECORDS SUMMARY | 2024-11-02 09:16 | XMS_ITS | Encounter Summary ---
Author Organization [facility] Address [address] [place] [address]. [place] [address] [place] [address] Care Team Providers Care Center Mgr Name Role Phone Lorie Castanon MD Primary Care Provider [phone] Reason for Visit * Reason Comments Follow Up Patient is here for a 1 month follow up. He states that his clothes are fitting right on the bag, he usually wears his pants below or above the bag. 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 COLOSTOMY reversable ??? HERNIA REPAIR Right [facility] ??? HERNIA REPAIR Left [facility] ??? NECK/CHEST PROCEDURE UNLISTED Right [facility], re-built right side of neck. ??? SMALL INTESTINE SURGERY bowel rupture ??? TOTAL KNEE ARTHROPLASTY Bilateral ZANA Partial KR, done @ [facility] Social History Socioeconomic History ??? Marital status: [...] Gatherings with Friends and Family: ??? Attends Yarsani Services: ??? Active Member of Clubs or [...] normal. Assessment/PLAN 1. Status post Neel procedure ([facility]) 2. Bowel perforation ([facility]) 3. 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 BMI [...] & Internal Medicine [facility] [address] [place] [address] [place] [address] [place] [address] 10/22/2025 9:15 AM CORSETS SALESPERSON Office Visit [facility] [address] [place] [address] Mily Gan MD [facility] [address] [place] [address] documented as of this encounter Goals Goal Patient Goal Type Associated Problems Recent Progress Patient-Stated? Author Establish Plan for Symptom Monitoring General Jesi Lagunas i RN Monitor - demonstrates appropriate technique of care of indwelling urinary catheter and new ostomy General Jesi Ye RN documented as of this encounter Visit Diagnoses Diagnosis Status post Neel procedure ([facility] HHS/HCC)- Primary Bowel perforation (CMS/HCC HHS/HCC) Perforation of intestine Colostomy in place (CMS/HCC HHS/HCC) Colostomy status BMI 24.0-24.9, adult documented in this encounter Care Teams Center Mgr Relationship Specialty Start Date End Date Lorie Castanon MD PCP - General INTERNAL MEDICINE 01/15/20 02/09/23 documented as of this encounter
--- OUTSIDE RECORDS SUMMARY | 2024-11-02 09:16 | XMS_ITS | Encounter Summary ---
Author Organization [facility] Address [address] [place] [address]. [place] [address] [place] [address] Care Team Providers Care Bracelet Maker Novelty Name Role Phone Lorie Castanon MD Primary Care Provider [phone] Reason for Visit * Reason Comments Postop Followup colon resection(03/07) Encounter Details Date Type Department Care Team (Late st Contact Info) Description 04/23/2021 1:00 PM CDT Office Visit [facility] Medical Group General Surgery [address], [address] [place] [address] Federico Amador MD [address] [place] [address] Postop Followup (colon resection(04/02/2021) ) Social [...] on file 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 Hyperlipidemia ??? Influenza vaccine administered ??? RANYD (obstructive sleep apnea) Past Surgical History: Procedure Laterality Date ??? COLON SURGERY 03/18/2021 colostomy r/t perferation ??? COLONOSCOPY N/A 2013 ??? COLOSTOMY reversable ??? HERNIA REPAIR Right [facility] ??? HERNIA REPAIR Left [facility] ??? NECK/CHEST PROCEDURE UNLISTED Right [facility], re-built right side of neck. ??? SMALL INTESTINE SURGERY bowel rupture ??? TOTAL KNEE ARTHROPLASTY Bilateral ZANA Partial KR, done @ [facility] Social History Tobacco Use ??? [...] Medical Group Family & Internal Medicine - [address] [address] Ilir [place] PA [address] [place] [address] 10/22/2025 9:15 AM ATMOSPHERIC SCIENTIST Office Visit [facility] [address] [place] [address] Mily Gan MD Three [facility] [address] [place], [place] [phone] documented as of this encounter Goals Goal [...] surgery documented in this encounter Care Teams Bracelet Maker Novelty Relationship Specialty Start Date End Date Lorie Castanon MD PCP - General INTERNAL MEDICINE 01/15/20 02/09/23 documented as of this encounter
--- OUTSIDE RECORDS SUMMARY | 2024-11-02 09:16 | XMS_ITS | Encounter Summary ---
Author Organization [facility] Address [address] [place] [address]. [place] [address] [place] [address] Care Team Providers Care Transformation Architect Name Role Phone Lorie [place] MD Primary Care Provider [phone] Reason for Visit * Reason Onset Date Comments Schedule Surgery 08/30/2021 Encounter Details Date Type Department Care Team (Late st Contact Info) Description 08/30/2021 Telephone [facility] Medical Group General Surgery - [place] [address] [facility], [address] [place] [address] Federico Mayer MD [address] [facility] [address] [place] [address] Schedule Surgery Social History Tobacco Use Types [...] file 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 Author Establish Plan for Symptom Monitoring General No Jesi Mixon i RN Monitor - demonstrates appropriate technique of care of indwelling urinary catheter and new ostomy General No Jesi Cochran RN documented as of this encounter Visit Diagnoses Not on filedocumented in this encounter Care Teams Transformation Architect Relationship Specialty Start Date End Date Lorie Chan MD PCP - General INTERNAL MEDICINE 01/15/20 02/09/23 documented as of this encounter
--- OUTSIDE RECORDS SUMMARY | 2024-11-02 09:16 | XMS_ITS | Encounter Summary ---
Author Organization [facility] Address [address] [place] [address]. 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 Author Establish Plan for Symptom Monitoring General Jesi Lagunas i, RN Monitor - demonstrates appropriate technique of care of indwelling urinary catheter and new ostomy General No Jesi Cochran RN documented as of this encounter Visit Diagnoses Not on filedocumented in this encounter Care Teams Front Office Assistant Relationship Specialty Start Date End Date Lorie Chan MD PCP - General INTERNAL MEDICINE 01/15/20 02/09/23 documented as of this encounter
--- OUTSIDE RECORDS SUMMARY | 2024-11-02 09:16 | XMS_ITS | Encounter Summary ---
Author Organization [facility] Address [address] [place] [address]. 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 Gender Identity Not on file Sexual [...] Family & Internal Medicine [facility] [address] [place] [address] [place] [address] [place], [place] [phone] 10/22/2025 9:15 AM FIELD CONTACT TECHNICIAN Office Visit [facility] [phone] Mily Gan MD [facility] [address] [place] [address] documented as of this encounter Goals Goal [...] antibiotics documented in this encounter Care Teams Driver Utility Worker Relationship Specialty Start Date End Date Lorie Chan MD PCP - General INTERNAL MEDICINE 01/15/20 02/09/23 documented as of this encounter
--- OUTSIDE RECORDS SUMMARY | 2024-11-02 09:16 | XMS_ITS | Encounter Summary ---
Author Organization [facility] Address [address] [place] [address]. 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 Author Establish Plan for Symptom Monitoring General Jesi Lagunas i, RN Monitor - demonstrates appropriate technique of care of indwelling urinary catheter and new ostomy General No Jesi Cochran RN documented as of this encounter Visit Diagnoses Not on filedocumented in this encounter Care Teams Material Flow Analyst Relationship Specialty Start Date End Date Lorie Chan MD PCP - General INTERNAL MEDICINE 01/15/20 02/09/23 documented as of this encounter
--- OUTSIDE RECORDS SUMMARY | 2024-11-02 09:17 | XMS_ITS | Encounter Summary ---
Author Organization [facility] Address [address] [place] [address]. 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 Medical Group Family & Internal Medicine [address] [address] Ilir [place] PA [address] [place] [phone] 10/22/2025 9:15 AM MAINTENANCE CONSTRUCTION HELPER Office Visit [facility] [address] Mily Gan MD [address] [address] documented as of this encounter Goals Goal Patient Goal Type Associated Problems Recent Progress Patient-Stated? Author Establish Plan for Symptom Monitoring General No Jesi Mixon i, RN Monitor - demonstrates appropriate technique of care of indwelling urinary catheter and new ostomy General No Jesi Cochran RN documented as of this encounter Visit Diagnoses Not on filedocumented in this encounter Care Teams Sheet Metal Shop Helper Relationship Specialty Start Date End Date Lorie Chan MD PCP - General INTERNAL MEDICINE 01/15/20 02/09/23 documented as of this encounter
--- OUTSIDE RECORDS SUMMARY | 2024-11-02 09:17 | XMS_ITS | Encounter Summary ---
Author Organization [facility] Address [address] [place] [address]. [place], [place] [address] [place] [address] Care Team Providers Care Project Manager Industrial Name Role Phone Lorie Chan MD Primary Care Provider [phone] Reason for Visit * Auth/Cert Specialty Diagnoses / Procedures Referred By Shelby jama Referred To Contact Home Health Services / [facility] Home Care [facility] [address] [facility] [address] [place] [address] Phone: tel: fax: Referral ID Status Reason Start Date Expiration Date Visits Re quested Visits Authorized [id number] 1 1 Encounter Details Date Type Department Care Team (Late st Contact Info) Description 04/13/2021 9:00 AM CDT Home Care Visit [facility] Home Care [facility] [address] [employer] [address] [place] [phone] Libby Syed, RN [phone] (Work) SN OASIS DISCHARGE/ASSESSMENT Social History [...] on file 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 Pharmacy is [facility]. Patient discharged at this time, per patient [...] Pt received the following services Home Health [facility]. Pt Agency discharged on April 13, 2021. [...] [facility] Family & Internal Medicine [facility] [address] [place] [address] [place] [address] [place] [address] 10/22/2025 9:15 AM BRIMMING MACHINE OPERATOR Office Visit [facility] [address] [place] [address] Mily Gan MD [facility] [address] [place], [place] [phone] documented as of this encounter Goals Goal [...] Type -SN - OASIS Disch arge Discipline -[facility] Problems Problem Description Start Date Status Goals Interve ntions Fall Precautions Disciplines: [facility] Patient at risk for falls 03/24/2021 Resolved on 04/13/2021 1 goal linked to scheduled/document ed intervention 3 goal interventions scheduled/document ed in this visit Collaboratio n of Care Disciplines: [facility] Collaboration for safe care. 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 03/24/2021 Resolved on 04/13/2021 1 goal linked to scheduled/document ed intervention 1 problem intervention scheduled/document ed in this visit 4 goal interventions scheduled/document ed in this visit Wound Management Disciplines: [facility] Skin integrity deficit related to: surgical wound wound. Location/site: Abdomen 03/24/2021 Resolved on 04/13/2021 1 goal linked to scheduled/document ed intervention 6 goal interventions scheduled/document ed in this visit Risk for Skin Breakdown Disciplines: [facility] Risk for skin breakdown 03/24/2021 Resolved on 04/13/2021 1 goal linked to scheduled/document ed intervention 1 goal intervention scheduled/document ed in this visit Depression Disciplines: [facility] Depression 03/24/2021 Resolved on 04/13/2021 1 goal linked to scheduled/document ed intervention 1 goal intervention scheduled/document ed in this visit Medications Disciplines: [facility] Management of home medications. 03/24/2021 Resolved on [...] strategies to prevent infection: frequent/proper hand-washing techniques, [place] precautions, Standard precautions, avoid crowds and persons [...] Completed documented in this encounter Care Teams Project Manager Industrial Relationship Specialty Start Date End Date Lorie Chan MD PCP - General INTERNAL MEDICINE 01/15/20 02/09/23 documented as of this encounter
--- OUTSIDE RECORDS SUMMARY | 2024-11-02 09:17 | XMS_ITS | Encounter Summary ---
Author Organization [facility] Address [address] [place] [address]. 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 Author Establish Plan for Symptom Monitoring General No Jesi Mixon i, RN Monitor - demonstrates appropriate technique of care of indwelling urinary catheter and new ostomy General No Jesi Cochran RN documented as of this encounter Visit Diagnoses Not on filedocumented in this encounter Care Teams Salary Manager Relationship Specialty Start Date End Date Lorie Chan MD PCP - General INTERNAL MEDICINE 01/15/20 02/09/23 documented as of this encounter
--- OUTSIDE RECORDS SUMMARY | 2024-11-02 09:17 | XMS_ITS | Encounter Summary ---
Author Organization [facility] Address [address] [place] [address]. [place], [place] [address] [place] [address] Care Team Providers Care Account Executive Metalworking Name Role Phone Lorie Chan MD Primary Care Provider [phone] Reason for Visit * Auth/Cert Specialty Diagnoses / Procedures Referred By Shelby jama Referred To Contact Home Health Services / [facility]ALTH [facility] Home Care [facility] [address] [facility] [address] [place] [address] Phone: tel: fax: Referral ID Status Reason Start Date Expiration Date Visits Re quested Visits Authorized [id number] 1 1 Encounter Details Date Type Department Care Team (Latest Contact Info) Description 04/06/2021 9:00 AM CDT Home Care Visit [facility] Home Care [facility] [address] [facility] [address] [place] [address] Kathie Casey C RN /[facility] ORIENTATION VISIT Social History Tobacco Use [...] on file 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 Author Establish Plan for Symptom Monitoring General Jesi Lagunas i, RN Monitor - demonstrates appropriate technique of care of indwelling urinary catheter and new ostomy General Jesi Ye, RN documented as of this encounter Visit Diagnoses Not on filedocumented in this encounter Care Teams Account Executive Metalworking Relationship Specialty Start Date End Date Lorie Chan MD PCP - General INTERNAL MEDICINE 01/15/20 02/09/23 documented as of this encounter
--- OUTSIDE RECORDS SUMMARY | 2024-11-02 09:17 | XMS_ITS | Encounter Summary ---
Author Organization [facility] Address [address] [place] [address]. 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 Author Establish Plan for Symptom Monitoring General Jesi Lagunas i RN Monitor - demonstrates appropriate technique of care of indwelling urinary catheter and new ostomy General No Jesi Cochran RN documented as of this encounter Visit Diagnoses Not on filedocumented in this encounter Care Teams Financial Assistance Specialist Relationship Specialty Start Date End Date Lorie Chan MD PCP - General INTERNAL MEDICINE 01/15/20 02/09/23 documented as of this encounter
--- OUTSIDE RECORDS SUMMARY | 2024-11-02 09:17 | XMS_ITS | Encounter Summary ---
Author Organization [facility] Address [address] [place] [address]. [place], [place] [address] [place] [address] Care Team Providers Care Dianeticist Name Role Phone Lorie Chan MD Primary Care Provider [phone] Reason for Visit * Auth/Cert Specialty Diagnoses / Procedures Referred By Shelby jama Referred To Contact Home Health Services / [facility] Home Care [facility] [address] [facility] [address] [place] [address] Phone: tel: fax: Referral ID Status Reason Start Date Expiration Date Visits Re quested Visits Authorized [id number] 1 1 Encounter Details Date Type Department Care Team (Late st Contact Info) Description 04/06/2021 9:00 AM CDT Home Care Visit [facility] Home Care [facility] [address] [facility] [address] [place] [address] Libby Syed, RN [phone] (Work) SN HOME VISIT Social History Tobacco [...] file Legal 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 Gender Identity Not on file Sexual Orientation [...] Medical Group Family & Internal Medicine - [place] [address] [place] [address] [place] [address] [place], [place] [phone] 10/22/2025 9:15 AM DIRECTOR SUPPLIER QUALITY Office Visit [facility] [address] Mily Gan MD [place] [address] [place], [place] [phone] documented as of this encounter Goals Goal [...] Visit Type -SN - Home Visit Discipline -Jail Problems Problem Description Start Date Status Goals Interve ntions Fall Precautions Disciplines: Jail Patient at risk for falls 03/24/2021 Active 1 goal linked to scheduled/document ed intervention 3 goal interventions scheduled/document ed in this visit Collaboratio n of Care Disciplines: Jail Collaboration for safe care. 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 03/24/2021 Active 1 goal linked to scheduled/document ed intervention 1 problem intervention scheduled/document ed in this visit 4 goal interventions scheduled/document ed in this visit Wound Management Disciplines: Jail Skin integrity deficit related to: surgical wound wound. Location/site: Abdomen 03/24/2021 Active 1 goal linked to scheduled/document ed intervention 8 goal interventions scheduled/document ed in this visit Urinary Catheter Disciplines: Jail Urinary catheter 03/24/2021 Resolved on 04/06/2021 1 goal linked to scheduled/document ed intervention 2 goal interventions scheduled/document ed in this visit Risk for Skin Breakdown Disciplines: Jail Risk for skin breakdown 03/24/2021 Active 1 goal linked to scheduled/document ed intervention 1 goal intervention scheduled/document ed in this visit Depression Disciplines: Jail Depression 03/24/2021 Active 1 goal linked to scheduled/document ed intervention 1 goal intervention scheduled/document ed in this visit Medications Disciplines: Jail Management of home medications. 03/24/2021 Active 1 [...] strategies to prevent infection: frequent/proper hand-washing techniques, [place] precautions, Standard precautions, avoid crowds and persons [...] to contact physician, Dr. Federico Amador at [phone]. - Instruct Patient and on home management [...] Scheduled documented in this encounter Care Teams Dianeticist Relationship Specialty Start Date End Date Lorie Chan MD PCP - General INTERNAL MEDICINE 01/15/20 02/09/23 documented as of this encounter
--- OUTSIDE RECORDS SUMMARY | 2024-11-02 09:17 | XMS_ITS | Encounter Summary ---
Author Organization [facility] Address [address] [place] [address]. [place], [place] [address] [place] [address] Care Team Providers Care Natural Sciences Department Chair Name Role Phone Lorie Chan MD Primary Care Provider [phone] Reason for Visit * Auth/Cert Specialty Diagnoses / Procedures Referred By Shelby jama Referred To Contact Home Health Services / [facility] Home Care [facility] [address] [facility] [address] [place] [address] Phone: tel: fax: Referral ID Status Reason Start Date Expiration Date Visits Re quested Visits Authorized [id number] 1 1 Encounter Details Date Type Department Care Team (Late st Contact Info) Description 04/08/2021 9:30 AM CDT Home Care Visit [facility] [address] [facility] 101 [place] [phone] Libby Syed, RN [phone] (Work) SN HOME VISIT Social History Tobacco [...] file Legal 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 Male 9:58 PM MANAGER 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 Gender Identity Not on file Sexual Orientation [...] Medical Group Family & Internal Medicine - [place] [address] [place] [address] [place] [address] [place], [place] [phone] 10/22/2025 9:15 AM MANAGER INTERFACE Office Visit [facility] [address] Mily Gan MD [place] [address] [place], [place] [phone] documented as of this encounter Goals Goal [...] Visit Type -SN - Home Visit Discipline -Retirement Problems Problem Description Start Date Status Goals Interve ntions Fall Precautions Disciplines: Retirement Patient at risk for falls 03/24/2021 Active 1 goal linked to scheduled/document ed intervention 3 goal interventions scheduled/document ed in this visit Collaboration of Care Disciplines: Retirement Collaboration for safe care. 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 03/24/2021 Active 1 goal linked to scheduled/document ed intervention 1 problem intervention scheduled/document ed in this visit 4 goal interventions scheduled/document ed in this visit Wound Management Disciplines: Retirement Skin integrity deficit related to: surgical wound wound. Location/site: Abdomen 03/24/2021 Active 1 goal linked to scheduled/document ed intervention 6 goal interventions scheduled/document ed in this visit Risk for Skin Breakdown Disciplines: Retirement Risk for skin breakdown 03/24/2021 Active 1 goal linked to scheduled/document ed intervention 1 goal intervention scheduled/document ed in this visit Depression Disciplines: Retirement Depression 03/24/2021 Active 1 goal linked to scheduled/document ed intervention 1 goal intervention scheduled/document ed in this visit Medications Disciplines: Retirement Management of home medications. 03/24/2021 Active 1 [...] strategies to prevent infection: frequent/proper hand-washing techniques, [place] precautions, Standard precautions, avoid crowds and persons [...] Completed documented in this encounter Care Teams Natural Sciences Department Chair Relationship Specialty Start Date End Date Lorie Chan MD PCP - General INTERNAL MEDICINE 01/15/20 02/09/23 documented as of this encounter
--- OUTSIDE RECORDS SUMMARY | 2024-11-02 09:17 | XMS_ITS | Encounter Summary ---
Author Organization [facility] Address [address] [place] [address]. [place], [place] [address] [place] [address] Care Team Providers Care Top Lift Nailer Name Role Phone Lorie Chan MD Primary Care Provider [phone] Reason for Visit * Auth/Cert Specialty Diagnoses / Procedures Referred By Shelby jama Referred To Contact Home Health Services / [facility] Home Care [facility] [address] [facility] [address] [place] [address] Phone: tel: fax: Referral ID Status Reason Start Date Expiration Date Visits Re quested Visits Authorized [id number] 1 1 Encounter Details Date Type Department Care Team (Latest Contact Info) Description 04/08/2021 9:30 AM CDT Home Care Visit [facility] Home Care [facility] 900 [facility] 101 [place] [phone] Kathie Casey C RN /[facility] ORIENTATION VISIT Social History Tobacco Use [...] on file 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 Author Establish Plan for Symptom Monitoring General Jesi Lagunas i, RN Monitor - demonstrates appropriate technique of care of indwelling urinary catheter and new ostomy General Jesi Ye, RN documented as of this encounter Visit Diagnoses Not on filedocumented in this encounter Care Teams Top Lift Nailer Relationship Specialty Start Date End Date Lorie Chan MD PCP - General INTERNAL MEDICINE 01/15/20 02/09/23 documented as of this encounter
--- OUTSIDE RECORDS SUMMARY | 2024-11-02 09:17 | XMS_ITS | Encounter Summary ---
Author Organization [facility] Address [address] [place] [address]. [place] [address] [place] [address] Care Team Providers Care Boat Puller Name Role Phone Lorie Castanon MD Primary Care Provider [phone] Reason for Visit * Reason Comments Postop Followup colon resection(03/06 01/24) * Surgical (Routine) - Closed Specialty Diagnoses / Procedures Referred By Shelby jama Referred To Contact Diagnoses Pharyngoesophageal dysphagia Procedures Case request operating room: Cody Lackey MD [address] [place] [address] Phone: tel: fax: Referral ID Status Reason Start Date Expiration Date Visits Re quested Visits Authorized [id number] Closed 02/25/2021 03/27/2022 1 1 Encounter Details Date Type Department Care Team (Late st Contact Info) Description 04/02/2021 1:40 PM CDT Office Visit [facility] Medical Group General Surgery [address], [address] [place] [address] Federico Amador MD [address] [address] Postop Followup (colon resection(03/18/21)) Social [...] on file 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 He is eating well and denies any abdomin al pain, nausea, vomiting, fevers or chills or any issues with his colostomy. He is having stool and air in his colostomy. Pathology was consistent with perforated diverticulitis with acute serositisand abscess, viable resection margins with serositis, no [...] Term Acute Hospital ??? HERNIA REPAIR Left [facility] ??? NECK/CHEST PROCEDURE UNLISTED Right [facility], re-built right side of neck. ??? SMALL INTESTINE SURGERY bowel rupture ??? TOTAL KNEE ARTHROPLASTY Bilateral ZANA Partial KR, done @ [facility] Social History Tobacco Use ??? [...] present. Comments: Ostomy is functioning with output. [place] removed without incident. [place] catheter removed without [...] kg/m??. Diagnoses/Impression: 1. Status post Neel procedure ([facility]) Recommendations and Plan: [...] Family & Internal Medicine [facility] [address] [place] [address] Ilir Nelson PA [address] [place] [id number] 10/22/2025 9:15 AM PROFESSOR OF RHETORIC Office Visit [facility] [address] [address] Mily Gan MD [address] [address] documented as of this encounter Goals Goal Patient Goal Type Associated Problems Recent Progress Patient-Stated? Author Establish Plan for Symptom Monitoring General Jesi Lagunas i, RN Monitor - demonstrates appropriate technique of care of indwelling urinary catheter and new ostomy General No Jesi Cochran RN documented as of this encounter Visit Diagnoses Diagnosis Status post Neel procedure ([facility])- Primary documented in this encounter Care Teams Boat Puller Relationship Specialty Start Date End Date Lorie Castanon MD PCP - General INTERNAL MEDICINE 01/15/20 02/09/23 documented as of this encounter
--- OUTSIDE RECORDS SUMMARY | 2024-11-02 09:17 | XMS_ITS | Encounter Summary ---
Author Organization [facility] Address [address] [place] [address]. 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 Author Establish Plan for Symptom Monitoring General No Jesi Mixon i, RN Monitor - demonstrates appropriate technique of care of indwelling urinary catheter and new ostomy General No Jesi Cochran, RN documented as of this encounter Visit Diagnoses Not on filedocumented in this encounter Care Teams Turbinated Bone Grinder Relationship Specialty Start Date End Date Lorie Chan MD PCP - General INTERNAL MEDICINE 01/15/20 02/09/23 documented as of this encounter
--- OUTSIDE RECORDS SUMMARY | 2024-11-02 09:17 | XMS_ITS | Encounter Summary ---
Author Organization [facility] Address [address] [place] [address]. [place], [place] [address] [place] [address] Care Team Providers Care Well Tender Name Role Phone Lorie Chan MD Primary Care Provider [phone] Reason for Visit * Auth/Cert Specialty Diagnoses / Procedures Referred By Shelby jama Referred To Contact Home Health Services / [facility] HOME HEALTH [facility] Home Care [facility] [address] [facility] [address] [place] [address] Phone: tel: fax: Referral ID Status Reason Start Date Expiration Date Visits Re quested Visits Authorized [id number] 1 1 Encounter Details Date Type Department Care Team (Latest Contact Info) Description 04/13/2021 9:00 AM CDT Home Care Visit [facility] Home Care 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 Author Establish Plan for Symptom Monitoring General Jesi Lagunas i, RN Monitor - demonstrates appropriate technique of care of indwelling urinary catheter and new ostomy General Jesi Ye, RN documented as of this encounter Visit Diagnoses Not on filedocumented in this encounter Care Teams Well Tender Relationship Specialty Start Date End Date Lorie Chan MD PCP - General INTERNAL MEDICINE 01/15/20 02/09/23 documented as of this encounter
--- OUTSIDE RECORDS SUMMARY | 2024-11-02 09:17 | XMS_ITS | Encounter Summary ---
Author Organization [facility] Address [address] [place] [address]. [place], [place] [address] [place] [address] Care Team Providers Care Cloth Colorer Name Role Phone Lorie Chan MD Primary Care Provider [phone] Reason for Visit * Auth/Cert Specialty Diagnoses / Procedures Referred By Shelby jama Referred To Contact Home Health Services / [facility] HOME HEALTH [facility] Home Care [facility] [address] [facility] [place] [address] Phone: tel: fax: Referral ID Status Reason Start Date Expiration Date Visits Re quested Visits Authorized [id number] 1 1 Encounter Details Date Type Department Care Team (Late st Contact Info) Description 04/07/2021 Home Care Visit [facility] Home Care [facility] [address] [facility] [address] [place] [address] Antonia Jeter, GINA CASE COMMUNICATION [...] on file 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 Author Establish Plan for Symptom Monitoring General Jesi Lagunas i, RN Monitor - demonstrates appropriate technique of care of indwelling urinary catheter and new ostomy General Jesi Ye, RN documented as of this encounter Visit Diagnoses Not on filedocumented in this encounter Care Teams Cloth Colorer Relationship Specialty Start Date End Date Lorie Chan MD PCP - General INTERNAL MEDICINE 01/15/20 02/09/23 documented as of this encounter
--- OUTSIDE RECORDS SUMMARY | 2024-11-02 09:17 | XMS_ITS | Encounter Summary ---
Author Organization [facility] Address [address] [place] [address]. [place], [place] [address] [place] [address] Care Team Providers Care Customs Inspector Name Role Phone Lorie Chan MD Primary Care Provider [phone] Encounter Details Date Type Department Care Team [...] on file Legal Sex Male 9:58 PM STONER HAND Gender Identity Not on file Sexual [...] [facility] Family [facility] [address] [place] [address] Il[place] Nelson [place] [address] [place] [address] 10/22/2025 9:15 AM STONER HAND Office Visit [facility] [address] Mily Gan MD [address] [address] documented as of this encounter Goals Goal Patient Goal Type Associated Problems Recent Progress Patient-Stated? Author Establish Plan for Symptom Monitoring General No Jesi Mixon i, RN Monitor - demonstrates appropriate technique of care of indwelling urinary catheter and new ostomy General No Jesi Cochran RN documented as of this encounter Visit Diagnoses Not on filedocumented in this encounter Care Teams Customs Inspector Relationship Specialty Start Date End Date Lorie Chan MD PCP - General INTERNAL MEDICINE 01/15/20 02/09/23 documented as of this encounter
--- OUTSIDE RECORDS SUMMARY | 2024-11-02 09:18 | XMS_ITS | Encounter Summary ---
Author Organization [facility] Address [address] [place] [address]. 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 Author Establish Plan for Symptom Monitoring General Jesi Lagunas i, RN Monitor - demonstrates appropriate technique of care of indwelling urinary catheter and new ostomy General Jesi Ye RN documented as of this encounter Visit Diagnoses Not on filedocumented in this encounter Care Teams Guardian Ad Litem Relationship Specialty Start Date End Date Lorie Chan MD PCP - General INTERNAL MEDICINE 01/15/20 02/09/23 Moraima Toledo, RN [facility]1 [place], [place] [address] Coal Digger (Ambulatory) REGISTERED NURSE 03/19/21 documented as of this encounter
--- OUTSIDE RECORDS SUMMARY | 2024-11-02 09:18 | XMS_ITS | Encounter Summary ---
Author Organization [facility] Address [address] [place] [address]. [place], [place] [address] [place] [address] Care Team Providers Care Assistant Football Coach Name Role Phone Lorie Chan MD Primary Care Provider [phone] Moraima Toledo RN Unavailable [phone] Reason for Visit * Auth/Cert Specialty Diagnoses / Procedures Referred By Shelby t Referred To Contact Home Health Services / [facility] HOME HEALTH [facility] Home Care [facility] [address] [facility] 101 [place] [address] Phone: tel: fax: Referral ID Status Reason Start Date Expiration Date Visits Re quested Visits Authorized [id number] 1 1 Encounter Details Date Type Department Care Team (Latest Contact Info) Description 03/25/2021 9:30 AM CDT Home Care Visit [facility] Home Care [facility] [address] [facility] [address] [place] [phone] Kathie Casey WOC RN /[facility] ORIENTATION VISIT Social History Tobacco Use Types [...] on file 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 Gender Identity Not on file Sexual Orientation [...] [facility] Family & Internal Medicine - [place] [address] [place] [address] [place] [address] [place], [place] [phone] 10/22/2025 9:15 AM MAKE UP ARTIST Office Visit [facility] [address] Mily Gan MD [facility] [address] [place] [address] documented as of this encounter [...] filedocumented in this encounter Care Teams Assistant Football Coach Relationship Specialty Start Date End Date Lorie Chan MD PCP - General INTERNAL MEDICINE 01/15/20 02/09/23 Moraima Toledo, RN [address] [place] [address] Automobile Body Customizer (Ambulatory) REGISTERED NURSE 03/19/21 documented as of this encounter
--- OUTSIDE RECORDS SUMMARY | 2024-11-02 09:18 | XMS_ITS | Encounter Summary ---
Author Organization [facility] Address [address] [place] [address]. 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 Author Establish Plan for Symptom Monitoring General Jesi Lagunas i RN Monitor - demonstrates appropriate technique of care of indwelling urinary catheter and new ostomy General Jesi Ye RN documented as of this encounter Visit Diagnoses Not on filedocumented in this encounter Care Teams Chute Greaser Relationship Specialty Start Date End Date Lorie Chan MD PCP - General INTERNAL MEDICINE 01/15/20 02/09/23 Moraima Toledo, RN [address] [place] [address] Postal Support Employee (Ambulatory) REGISTERED NURSE 03/19/21 documented as of this encounter
--- OUTSIDE RECORDS SUMMARY | 2024-11-02 09:18 | XMS_ITS | Encounter Summary ---
Author Organization [facility] Address [address] [place] [address]. [place], [place] [address] [place] [address] Care Team Providers Care Brim Pouncing Machine Operator Name Role Phone Lorie Chan MD Primary Care Provider [phone] Moraima Toledo RN Unavailable [phone] Reason for Visit * Auth/Cert Specialty Diagnoses / Procedures Referred By Shelby t Referred To Contact Home Health Services / [facility] HOME HEALTH [facility] Home Care [facility] [address] [facility] 101 [place] [address] Phone: tel: fax: Referral ID Status Reason Start Date Expiration Date Visits Re quested Visits Authorized [id number] 1 1 Encounter Details Date Type Department Care Team (Latest Contact Info) Description 03/24/2021 Home Care Visit [facility] Home Care [facility] [address] [facility] 101 [place] [phone] Libby Syed RN [phone] (Work) [facility] Social History [...] on file 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 [place] Disciplines involved in care - Home Health Intermediate Referrals to other disciplines needed? Yes Home Health PT and Home Health OT recommended, patient declines at this time. Barriers to discharge - New ostomy Progress towards goals - Patient admitted to [facility] on March 18, 2021 with perforated diverticulum. [...] Family & Internal Medicine [facility] [address] [place] [address] [place] [address] [place], [place] [phone] 10/22/2025 9:15 AM BOWLING ALLEY OPERATOR Office Visit [facility] [address] Mily Gan MD [address] [phone] documented as of this encounter Goals Goal Patient Goal Type Associated Problems Recent Progress Patient-Stated? Author Establish Plan for Symptom Monitoring General No Jesi Mixon i, RN Monitor - demonstrates appropriate technique of care of indwelling urinary catheter and new ostomy General No Jesi Cochran RN documented as of this encounter Visit Diagnoses Not on filedocumented in this encounter Care Teams Brim Pouncing Machine Operator Relationship Specialty Start Date End Date Lorie Chan MD PCP - General INTERNAL MEDICINE 01/15/20 02/09/23 Moraima Toledo, RN [address] [place] [address] Gear Repair Supervisor (Ambulatory) REGISTERED NURSE 03/19/21 documented as of this encounter
--- OUTSIDE RECORDS SUMMARY | 2024-11-02 09:18 | XMS_ITS | Encounter Summary ---
Author Organization [facility] Address [address] [place] [address]. [place], [place] [address] [place] [address] Care Team Providers Care Bolt Man Name Role Phone Lorie Chan MD Primary Care Provider [phone] Moraima Toledo RN Unavailable [phone] Reason for Visit * Auth/Cert Specialty Diagnoses / Procedures Referred By Shelby t Referred To Contact Home Health Services / [facility] HOME HEALTH [facility] Home Care [facility] [address] [facility] 101 [place] [address] Phone: tel: fax: Referral ID Status Reason Start Date Expiration Date Visits Re quested Visits Authorized [id number] 1 1 Encounter Details Date Type Department Care Team (Late st Contact Info) Description 03/24/2021 11:00 AM CDT Home Care Visit [facility] Home Care [facility] [address] [facility] [address] [place] [address] Libby Syed RN [phone] (Work) SN OASIS START OF CARE [...] file Legal 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 Thank you! documented in this encounter Plan of Treatment Upcoming Encounters Date Type Department Care Team (Late st Contact Info) Description 01/27/2025 7:00 AM CDT Office Visit [facility] Family & Internal Medicine - [place] [address] [place] [address] [place] [address] [place] [address] 10/22/2025 9:15 AM CHIEF COUNSEL Office Visit [facility] [address] Mily Gan MD [address] [address] documented as of this encounter [...] -SN - OASIS Start of Care Discipline -Half-Way Problems Problem Description Start Date Status Goals Interve ntions Fall Precautions Disciplines: Half-Way Patient at risk for falls 03/24/2021 Active 1 goal linked to scheduled/document ed intervention 3 goal interventions scheduled/document ed in this visit Collaboration of Care Disciplines: Half-Way Collaboration for safe care. 03/24/2021 Active 2 goals linked to scheduled/document ed interventions 2 problem interventions scheduled/document ed in this visit 5 goal interventions scheduled/document ed in this visit Ostomy Disciplines: Half-Way Care related to Colostomy related to diagnosis of Perforated diverticulum. 03/24/2021 Active 1 goal linked to scheduled/document ed intervention 1 problem intervention scheduled/document ed in this visit 4 goal interventions scheduled/document ed in this visit Wound Management Disciplines: Half-Way Skin integrity deficit related to: surgical wound wound. Location/site: Abdomen 03/24/2021 Active 1 goal linked to scheduled/document ed intervention 8 goal interventions scheduled/document ed in this visit Urinary Catheter Disciplines: Half-Way Urinary catheter 03/24/2021 Active 1 goal linked to scheduled/document ed intervention 2 goal interventions scheduled/document ed in this visit Risk for Skin Breakdown Disciplines: Half-Way Risk for skin breakdown 03/24/2021 Active 1 goal linked to scheduled/document ed intervention 1 goal intervention scheduled/document ed in this visit Depression Disciplines: Half-Way Depression 03/24/2021 Active 1 goal linked to scheduled/document ed intervention 1 goal intervention scheduled/document ed in this visit Medications Disciplines: Half-Way 03/24/2021 Active 1 goal linked to scheduled/document [...] strategies to prevent infection: frequent/proper hand-washing techniques, [place] precautions, Standard precautions, avoid crowds and persons [...] nurse received call back from Dr. Amador's senior medical transcriptionist, [place] with new wound care orders after [...] to contact physician, Dr. Federico Amador at [phone]. - Instruct Patient and on home management [...] Patient and instructed on frequent/proper hand-washing techniques, [place] precautions, Standard precautions, avoid crowds and persons [...] Completed documented in this encounter Care Teams Bolt Man Relationship Specialty Start Date End Date Lorie Chan MD PCP - General INTERNAL MEDICINE 01/15/20 02/09/23 Moraima Toledo, RN [address] [place], [place] [address] Bods Developer (Ambulatory) REGISTERED NURSE 03/19/21 documented as of this encounter
--- OUTSIDE RECORDS SUMMARY | 2024-11-02 09:18 | XMS_ITS | Encounter Summary ---
Author Organization [facility] Address [address] [place] [address]. 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 Gender Identity Not on file Sexual Orientation [...] - 03/23/2021 10:53 AM CDT TCM from [facility] [place] DX Ruptured Bowel Adm 03/18/21 D/C 03/23/21 Appt 03/29@ [address] [place] [address]# [phone] documented in this encounter Plan of Treatment Upcoming Encounters Date Type Department Care Team (Late st Contact Info) Description 01/27/2025 7:00 AM CDT Office Visit [facility] Family & Internal Medicine [facility] [address] [place] [address] [place] [address] [place], [place] [phone] 10/22/2025 9:15 AM SWITCHMAN Office Visit [facility] [address] Mily Gan MD [address] [phone] documented as of this encounter Visit Diagnoses Not on filedocumented in this encounter Care Teams Gear Machinist Relationship Specialty Start Date End Date Lorie Chan MD PCP - General INTERNAL MEDICINE 01/15/20 02/09/23 Moraima Toledo, RN [address] [place] [address] Neurology Stroke Physician (Ambulatory) REGISTERED NURSE 03/19/21 documented as of this encounter
--- OUTSIDE RECORDS SUMMARY | 2024-11-02 09:18 | XMS_ITS | Encounter Summary ---
Author Organization [facility] Address [address] [place] [address]. [place], [place] [address] [place] [address] Care Team Providers Care Eyeglass Inspector Name Role Phone Lorie Chan MD Primary Care Provider [phone] Moraima Toledo RN Unavailable [phone] Reason for Visit * Auth/Cert Specialty Diagnoses / Procedures Referred By Shelby t Referred To Contact Home Health Services / [facility] HOME HEALTH [facility] Home Care [facility] [address] [facility] 101 [place] [address] Phone: tel: fax: Referral ID Status Reason Start Date Expiration Date Visits Re quested Visits Authorized [id number] 1 1 Encounter Details Date Type Department Care Team (Latest Contact Info) Description 03/30/2021 10:00 AM CDT Home Care Visit [facility] Home Care [facility] [address] [facility] 101 [place] [address] Kathie Casey WOC RN /[facility] ORIENTATION VISIT Social History Tobacco Use [...] file 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 Author Establish Plan for Symptom Monitoring General No Jesi Mixon i, RN Monitor - demonstrates appropriate technique of care of indwelling urinary catheter and new ostomy General No Jesi Cochran RN documented as of this encounter Visit Diagnoses Not on filedocumented in this encounter Care Teams Eyeglass Inspector Relationship Specialty Start Date End Date Lorie Chan MD PCP - General INTERNAL MEDICINE 01/15/20 02/09/23 Moraima Toledo, RN [address] [place] [address] Tax Services Intern (Ambulatory) REGISTERED NURSE 03/19/21 documented as of this encounter
--- OUTSIDE RECORDS SUMMARY | 2024-11-02 09:18 | XMS_ITS | Encounter Summary ---
Author Organization [facility] Address [address] [place] [address]. [place] [address] [place] [address] Care Team Providers Care Lever Tender Name Role Phone Lorie Chan MD Primary Care Provider [phone] Moraima Toledo RN Unavailable [phone] Reason for Visit * Reason Onset Date Comments Orders 03/24/2021 [facility] Home Care Encounter Details Date Type Department Care Team (Late st Contact Info) Description 03/24/2021 Telephone [facility] Medical Group General Surgery - [place] [address] [facility], [address] [place] [address] Federico Mayer MD [address] [facility] [address] [place] [address] Orders ([facility] Home Care) Social History Tobacco Use Types [...] on file Legal 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 [...] Medical Group Family & Internal Medicine - [place] [address] [place] [address] [place] [address] [place], [place] [id number] 10/22/2025 9:15 AM CAR RACER Office Visit [facility] [address] Mily Gan MD [address] [place] [address] documented as of this encounter Goals Goal Patient Goal Type Associated Problems Recent Progress Patient-Stated? Author Establish Plan for Symptom Monitoring General Jesi Lagunas i RN Monitor - demonstrates appropriate technique of care of indwelling urinary catheter and new ostomy General Jesi Ye RN documented as of this encounter Visit Diagnoses Not on filedocumented in this encounter Care Teams Lever Tender Relationship Specialty Start Date End Date Lorie Chan MD PCP - General INTERNAL MEDICINE 01/15/20 02/09/23 Moraima Toledo, RN [address] [place] [address] Ice Sculptor (Ambulatory) REGISTERED NURSE 03/19/21 documented as of this encounter
--- OUTSIDE RECORDS SUMMARY | 2024-11-02 09:18 | XMS_ITS | Encounter Summary ---
Author Organization [facility] Address [address] [place] [address]. [place], [place] [address] [place] [address] Care Team Providers Care Meterman Name Role Phone Lorie Chan MD Primary Care Provider [phone] Moraima Toledo RN Unavailable [phone] Reason for Visit * Auth/Cert Specialty Diagnoses / Procedures Referred By Shelby t Referred To Contact Home Health Services / [facility] HOME HEALTH [facility] Home Care [facility] [address] [address] Phone: tel: fax: Referral ID Status Reason Start Date Expiration Date Visits Re quested Visits Authorized [id number] 1 1 Encounter Details Date Type Department Care Team (Late st Contact Info) Description 03/25/2021 9:00 AM CDT Home Care Visit [facility] Home Care [facility] [address] [facility] 101 [place] [address] Libby Syed RN [phone] (Work) SN HOME VISIT Social History Tobacco [...] on file 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 Gender Identity Not on file Sexual [...] Medical Group Family & Internal Medicine - [place] [address] [place] [address] [place] [address] [place], [place] [phone] 10/22/2025 9:15 AM EARLY EDUCATION TEACHER Office Visit [facility] [address] Mily Gan MD [address] [place], [place] [id number] documented as of this encounter Goals Goal [...] Visit Type -SN - Home Visit Discipline -Mcc Problems Problem Description Start Date Status Goals Interve ntions Fall Precautions Disciplines: Mcc Patient at risk for falls 03/24/2021 Active 1 goal linked to scheduled/document ed intervention 3 goal interventions scheduled/document ed in this visit Collaboration of Care Disciplines: Mcc Collaboration for safe care. 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 03/24/2021 Active 1 goal linked to scheduled/document ed intervention 1 problem intervention scheduled/document ed in this visit 4 goal interventions scheduled/document ed in this visit Wound Management Disciplines: Mcc Skin integrity deficit related to: surgical wound wound. Location/site: Abdomen 03/24/2021 Active 1 goal linked to scheduled/document ed intervention 8 goal interventions scheduled/document ed in this visit Urinary Catheter Disciplines: Mcc Urinary catheter 03/24/2021 Active 1 goal linked to scheduled/document ed intervention 2 goal interventions scheduled/document ed in this visit Risk for Skin Breakdown Disciplines: Mcc Risk for skin breakdown 03/24/2021 Active 1 goal linked to scheduled/document ed intervention 1 goal intervention scheduled/document ed in this visit Depression Disciplines: Mcc Depression 03/24/2021 Active 1 goal linked to scheduled/document ed intervention 1 goal intervention scheduled/document ed in this visit Medications Disciplines: Mcc 03/24/2021 Active 1 goal linked to scheduled/document [...] strategies to prevent infection: frequent/proper hand-washing techniques, [place] precautions, Standard precautions, avoid crowds and persons [...] to contact physician, Dr. Federico Amador at [phone]. - Instruct Patient and on home management [...] Completed Patient instructed on frequent/proper hand-washing techniques, [place] precautions, Standard precautions, avoid crowds and persons [...] Scheduled documented in this encounter Care Teams Meterman Relationship Specialty Start Date End Date Lorie Chan MD PCP - General INTERNAL MEDICINE 01/15/20 02/09/23 Moraima Toledo, RN [facility] [place] [address] Rand Cementer (Ambulatory) REGISTERED NURSE 03/19/21 documented as of this encounter
--- OUTSIDE RECORDS SUMMARY | 2024-11-02 09:18 | XMS_ITS | Encounter Summary ---
Author Organization [facility] Address [address] [place] [address]. [place], [place] [address] [place] [address] Care Team Providers Care Family Services Specialist Name Role Phone Lorie Chan MD Primary Care Provider [phone] Moraima Toledo RN Unavailable Reason for Visit * Reason Onset Date Comments TCM 03/24/2021 [facility] 03/18-03/23 Encounter Details Date Type Department Care Team (Late st Contact Info) Description 03/24/2021 Patient Outreach [facility] Medical Group Family & Internal Medicine [address] [address] Jesi Cochran RN [facility] 03/18-03/23) Social History Tobacco Use [...] on file Legal 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 04/02/2021 1:40 PM Federico Mayer MD [...] patient. Introduced self and explained role of client care specialist. All discharge instructions reviewed. Patient states that [...] of infx. Med rec performed, nodiscrepancies found. [facility] home health arrived at patient's home during [...] Medical Group Family & Internal Medicine - [address] [place] [address] [place] [address] [place] [address] 10/22/2025 9:15 AM LOCK PLATER Office Visit [facility] [address] Mily Gan MD [address] [place] [address] documented as of this encounter Goals Goal Patient Goal Type Associated Problems Recent Progress Patient-Stated? Author Establish Plan for Symptom Monitoring General No Jesi Mixon i RN Monitor - demonstrates appropriate technique of care of indwelling urinary catheter and new ostomy General Jesi Ye RN documented as of this encounter Visit Diagnoses Not on filedocumented in this encounter Care Teams Family Services Specialist Relationship Specialty Start Date End Date Lorie Chan MD PCP - General INTERNAL MEDICINE 01/15/20 02/09/23 Moraima Toledo, RN [address] [place] [address] Manual Winder (Ambulatory) REGISTERED NURSE 03/19/21 documented as of this encounter
--- OUTSIDE RECORDS SUMMARY | 2024-11-02 09:18 | XMS_ITS | Encounter Summary ---
Author Organization [facility] Address [address] [place] [address]. 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 Author Establish Plan for Symptom Monitoring General Jesi Lagunas i RN Monitor - demonstrates appropriate technique of care of indwelling urinary catheter and new ostomy General No Jesi Cochran RN documented as of this encounter Visit Diagnoses Not on filedocumented in this encounter Care Teams Online Merchandising Manager Relationship Specialty Start Date End Date Lorie Chan MD PCP - General INTERNAL MEDICINE 01/15/20 02/09/23 Moraima Toledo, RN [address] [place], [place] [address] Flower Arranger (Ambulatory) REGISTERED NURSE 03/19/21 documented as of this encounter
--- OUTSIDE RECORDS SUMMARY | 2024-11-02 09:18 | XMS_ITS | Encounter Summary ---
Author Organization [facility] Address [address] [place] [address]. [place], [place] [address] [place] [address] Care Team Providers Care Manager Lvn Name Role Phone Lorie Chan MD Primary Care Provider [phone] Moraima Toledo RN Unavailable [phone] Reason for Visit * Reason Comments TCM Pt here for follow u p on hospital discharge 03/23 Encounter Details Date Type Department Care Team (Late st Contact Info) Description 03/29/2021 10:00 AM CDT Office Visit [facility] Medical Group Family & Internal Medicine [address] [address] Antonia Zamora, CNC MILL PROGRAMMER [address] [phone] TCM (Pt here for follow up on [...] on file 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 Please see recent Cushion Sewer telephone encounter. Discharge date was 03/23/21 The [...] previously had supplies from [facility] in [place], [place]. He is not taking [place] since discharge from the hospital. They have [...] [facility] Family & Internal Medicine [facility] [address] [place] [address] [place] [address] [place] [address] 10/22/2025 9:15 AM FENCE MAKING MACHINE OPERATOR Office Visit [facility] [address] Mily Gan MD [address] [id number] documented as of this encounter Goals Goal [...] intestine documented in this encounter Care Teams Manager Lvn Relationship Specialty Start Date End Date Lorie Chan MD PCP - General INTERNAL MEDICINE 01/15/20 02/09/23 Moraima Toledo, RN [address] [place] [address] Cushion Sewer (Ambulatory) REGISTERED NURSE 03/19/21 documented as of this encounter
--- OUTSIDE RECORDS SUMMARY | 2024-11-02 09:18 | XMS_ITS | Encounter Summary ---
Author Organization [facility] Address [address] [place] [address]. [place], [place] [address] [place] [address] Care Team Providers Care Director Of Recreation Therapy Name Role Phone Lorie Chan MD Primary Care Provider [phone] Moraima Toledo RN Unavailable [phone] Reason for Visit * Auth/Cert Specialty Diagnoses / Procedures Referred By Shelby t Referred To Contact Home Health Services / [facility] HOME HEALTH [facility] Home Care [facility] [address] [address] Phone: tel: fax: Referral ID Status Reason Start Date Expiration Date Visits Re quested Visits Authorized [id number] 1 1 Encounter Details Date Type Department Care Team (Late st Contact Info) Description 03/30/2021 10:00 AM CDT Home Care Visit 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 Gender Identity Not on file Sexual [...] Medical Group Family & Internal Medicine - [place] [address] [place] [address] [place] [address] [place], [place] [phone] 10/22/2025 9:15 AM STEAMFITTER APPRENTICE Office Visit [facility] [address] Mily Gan MD [address] [phone] documented as of this encounter Goals Goal [...] Status Goals Interve ntions Fall Precautions Disciplines: Correction Patient at risk for falls 03/24/2021 Active 1 goal linked to scheduled/document ed intervention 3 goal interventions scheduled/document ed in this visit Collaboration of Care Disciplines: Correction Collaboration for safe care. 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 03/24/2021 Active 1 goal linked to scheduled/document ed intervention 1 problem intervention scheduled/document ed in this visit 4 goal interventions scheduled/document ed in this visit Wound Management Disciplines: Correction Skin integrity deficit related to: surgical wound wound. Location/site: Abdomen 03/24/2021 Active 1 goal linked to scheduled/document ed intervention 8 goal interventions scheduled/document ed in this visit Urinary Catheter Disciplines: Correction Urinary catheter 03/24/2021 Active 1 goal linked to scheduled/document ed intervention 2 goal interventions scheduled/document ed in this visit Risk for Skin Breakdown Disciplines: Correction Risk for skin breakdown 03/24/2021 Active 1 goal linked to scheduled/document ed intervention 1 goal intervention scheduled/document ed in this visit Depression Disciplines: Correction Depression 03/24/2021 Active 1 goal linked to scheduled/document ed intervention 1 goal intervention scheduled/document ed in this visit Medications Disciplines: Correction 03/24/2021 Active 1 goal linked to scheduled/document [...] strategies to prevent infection: frequent/proper hand-washing techniques, [place] precautions, Standard precautions, avoid crowds and persons [...] to contact physician, Dr. Federico Amador at [phone]. - Instruct Patient and on home management [...] Patient and instructed on frequent/proper hand-washing techniques, [place] precautions, Standard precautions, avoid crowds and persons [...] Scheduled documented in this encounter Care Teams Director Of Recreation Therapy Relationship Specialty Start Date End Date Lorie Chan MD PCP - General INTERNAL MEDICINE 01/15/20 02/09/23 Moraima Toledo, RN [address] [place] [address] Devops Engineer (Ambulatory) REGISTERED NURSE 03/19/21 documented as of this encounter
--- OUTSIDE RECORDS SUMMARY | 2024-11-02 09:18 | XMS_ITS | Encounter Summary ---
Author Organization [facility] Address [address] [place] [address]. 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 ??After a instrumentation supervisor image was obtained, the bladder was allowed to fill with Isovue-370 by gravity until the patient felt a full bladder sensation. Numerous images were acquired for the procedure in the AP and bilateral oblique projections. Final images were obtained after allowing the bladder to empty. 2. ??Armored Cable Machine Operator radiograph demonstrates the patient is status post [...] mGy. FINDINGS AND IMPRESSION: 1. After a instrumentation supervisor image was obtained, the bladder was allowed to fill withIsovue- 370 by gravity until the patient felt a full bladder sensation.Numerous images were acquired for the procedure in the AP and bilateraloblique projections. Final images were obtained after allowing the bladderto empty. 2. Armored Cable Machine Operator radiograph demonstrates the patient is status post [...] Other documented in this encounter Care Teams Livestock Farm Workers Relationship Specialty Start Date End Date Lorie Chan MD PCP - General INTERNAL MEDICINE 01/15/20 02/09/23 documented as of this encounter
--- OUTSIDE RECORDS SUMMARY | 2024-11-02 09:19 | XMS_ITS | Encounter Summary ---
Author Organization [facility] Address [address] [place] [address]. [place] [address] [place] [address] Care Team Providers Care Legislative Director Name Role Phone Lorie Chan MD Primary Care Provider [phone] Reason for Visit * Reason Comments Dysphagia pt is having trouble swallowing, last EGD years ago * Consultation (Routine) - Closed Specialty Diagnoses / Procedures Referred By Shelby jama Referred To Contact GASTROENTEROLOGY Diagnoses Pharyngeal dysphagia Lorie Chan MD Phone: tel: fax: [place] [address] [place] [address] Phone: tel: fax: Referral ID Status Reason Start Date Expiration Date Visits Re quested Visits Authorized [id number] Closed 01/25/2021 01/25/2022 6 6 Encounter Details Date Type Department Care Team (Latest Contact Info) Description 02/19/2021 1:20 PM CDT Office Visit [facility] [place] [address] [place] [address] Jenni Randolph MD [address] [place] [address] Dysphagia (pt is having trouble swallowing, [...] on file Legal 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 HERNIA REPAIR Right [facility] ??? HERNIA REPAIR Left [facility] ??? NECK/CHEST PROCEDURE UNLISTED Right [facility], re-built right side of neck. ??? TOTAL KNEE ARTHROPLASTY Bilateral ZANA Partial KR, done @ [facility] Social History: Social History Socioeconomic History ??? [...] file Gets together: Not on file Attends methodist service: Not on file Active member of [...] Internal Medicine [facility] [address] [place] [address] [place] [address] [place] [address] 10/22/2025 9:15 AM HEEL SHAPER Office Visit [facility]-[address] [address] Mily Gan MD [address] [address] documented as of this encounter Visit Diagnoses Diagnosis Pharyngoesophageal dysphagia- Primary Dysphagia, pharyngoesophageal phase documented in this encounter Care Teams Legislative Director Relationship Specialty Start Date End Date Lorie Chan MD PCP - General INTERNAL MEDICINE 01/15/20 02/09/23 documented as of this encounter
--- OUTSIDE RECORDS SUMMARY | 2024-11-02 09:19 | XMS_ITS | Encounter Summary ---
Author Organization [facility] Address [address] [place] [address]. 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 No / Unsure 01/06/2021 6:54 AM MUCKER OPERATOR documented as of this encounter Plan of Treatment Upcoming Encounters Date Type Department Care Team (Late st Contact Info) Description 01/27/2025 7:00 AM CDT Office Visit [facility] Medical Group Family & Internal Medicine [facility] [address] [place] [address] [place] [phone] [place] [address] 10/22/2025 9:15 AM MUCKER OPERATOR Office Visit [facility] [address] [place] [address] Mily Gan MD [facility] [address] [place] [address] documented as of this encounter Visit Diagnoses Not on filedocumented in this encounter Care Teams Power Cutting Machine Operator Relationship Specialty Start Date End Date Lorie Chan MD PCP - General INTERNAL MEDICINE 01/15/20 02/09/23 documented as of this encounter
--- OUTSIDE RECORDS SUMMARY | 2024-11-02 09:19 | XMS_ITS | Encounter Summary ---
Author Organization [facility] Address [address] [place] [address]. [place] [address] [place] [address] Care Team Providers Care Lead Caregiver Name Role Phone Lorie Chan MD Primary Care Provider [phone] Encounter Details Date Type Department Care Team (Latest Contact Info) Description 03/07/2021 8:00 AM CDT - 03/07/2021 11:59 PM T Hospital Encounter [facility] [address] [place] [address] Cody Randolph MD [address] [place] [id number] Discharge Disposition: Home or Self Care (Routine [...] on file Legal Sex Male 9:58 PM [employer] Gender Identity Not on file Sexual [...] Description 01/27/2025 7:00 AM CDT Office Visit [facility] Family & Internal Medicine [facility] [id number] [place] [phone] Ilir Nelson, GERI [id number] [place] [address] [place] [address] 10/22/2025 9:15 AM [employer] Office Visit [facility] [address] [place] [address] Mily Gan MD [facility]. [facility] [address] [place] [address] documented as of this encounter Procedures Procedure Name Priority Date/Time Associated Diagnosis Comments CORONAVIRUS (COVID 19) Routine 03/07/2021 8:12 AM CDT Preop testing documented in this encounter Results * PRE-SURGICAL/PRE-PROCEDURE CORONAVIRUS (COVID 19) (03/07/2021 8:12 AM CDT) CORONAVIRUS SARS COV 2 PCR (RESP) NOT DETECTED NOT DETECTED 03/08/2021 2:56 PM CDT [facility] Comment: A Not Detected (negative) test [...] providers and patients using the following websites: https://www.[employer].com/home/Covid-19/HCP/[facility]/fact- sheet.html https://www.[employer]pp[employer].com/home/Covid-19/Patients/ Quest[employer]/fact-sheet.html This test has been authorized by the FDA under an Emergency Use Authorization (EUA) for use by authorized laboratories. Due to the current public health emergency, [facility] is receiving a high volume of samples [...] about COVID-19 can be found at the [facility] website: www.[employer].TouchMail/Covid19. [facility] performed at [facility] [address] [place], [place] ??[phone] Director: MICHEL LEO DO,MPH FIRST TEST UNKNOWN 03/07/2021 8:04 AM T [facility] EMPLOYED IN HEALTHCARE NO 03/07/2021 8:04 AM CDT [facility] SYMPTOMATIC DEFINED BY CDC NO 03/07/2021 8:04 AM CDT [facility] DATE OF SYMPTOM ONSET UNKNOWN 03/07/2021 12:43 PM CDT [facility] HOSPITALIZATION STATUS NO 03/07/2021 8:04 AM T [facility] PATIENT IN ICU NO 03/07/2021 8:04 AM T [facility] RESIDENT OF [facility] NO 03/07/2021 8:04 AM T [facility] UNKNOWN 03/07/2021 12:43 PM CDT [facility] PATIENT'S RACE WHITE OR 03/07/2021 8:04 AM T [facility] ETHNICITY NONHISPANIC 03/07/2021 8:04 AM T [facility] SOURCE (QST) NASOPHARYNGEAL SWAB 03/07/2021 8:04 AM T [facility] NASOPHARYNGEAL SWAB / Unknown 03/07/2021 8:12 AM CDT us Cody Randolph MD MICROBIOLOGY - GENERAL ORDERABLE S Final Result [facility] [address] [place] [address], [place] [phone] [facility] [address] [place] [address], documented in this encounter Visit Diagnoses Diagnosis Preop testing Preoperative examination, unspecified documented in this encounter Additional Health Concerns Infection Onset Date Last Indicated Resolved Time COVID-19 Rule Out 03/07/2021 03/07/2021 03/08/2021 2:56 PM CDT documented as of this encounter Care Teams Lead Caregiver Relationship Specialty Start Date End Date Lorie Chan MD PCP - General INTERNAL MEDICINE 01/15/20 02/09/23 documented as of this encounter
--- OUTSIDE RECORDS SUMMARY | 2024-11-02 09:19 | XMS_ITS | Encounter Summary ---
Author Organization [facility] Address [address] [place] [address]. [place] [address] [place] [address] Care Team Providers Care Ornamental Iron Erector Name Role Phone Jeremy Castanon MD Primary Care Provider [phone] Moraima Toledo RN Unavailable [phone] Reason for Visit * Auth/Cert Specialty Diagnoses / Procedures Referred By Shelby t Referred To Contact Diagnoses Perforated diverticulum Perforated diverticulum Procedures INP Referral ID Status Reason Start Date Expiration Date Visits Re quested Visits Authorized [id number] 1 1 Encounter Details Date Type Department Care Team (Late st Contact Info) Description 03/18/2021 1:45 PM CDT - 03/23/2021 1:00 PM CDT Hospital Encounter [facility] Medical/Surgical [address] [place] [id number] Lita Hu MD [facility] [place] [address] [phone] (Work) Sean Marquez APRN 1 [place] [address] [phone] (Work) Discharge Disposition: Home with [...] on file Legal Sex Male 9:58 PM [employer]GNOS [employer]AD Gender Identity Not on file Sexual [...] CASTANON MD Discharge Physician: SEAN MARQUEZ APRN [facility] Diagnosis: Perforated diverticulum Admission Condition: stable [...] Your Medications These medications were sent to [id number] - [place], [place] - [address] [place], [place] [address] ?? amoxicillin-clavulanate 875-125 MG tablet ?? HYDROcodone-acetaminophen [...] services: (examples or possibly selections could include): long-term to: Perform skilled assessment, medical condition education related to the above clinical and medical condition.Therapy assessment and treatment if appropriate Patient Instructions: Activity: activity as tolerated Diet: Diet low fiber Appropriate Wound Care: as directed Therapy Ordered: Physical Therapy: Evaluate and Treat Occupational Therapy: Evaluate and Treat long-term: Evaluate and treat Follow-up appointments: PCP in a week, general surgery in a week Hospital Course: Mandie Cotter is a 65-year-old male that presented to the ED at [facility] for complaints of severe lower abdominal/suprapubic abdominal pain associated with subjective fevers and chills. ??He also stated that he did have associated urinary frequency but denied any particles in the urine. ??He denied any change in bowel movements. ??He stated that the pain was so severe but relieved with pain medication twice in the emergency department at [facility]. He believes his last colonoscopy was [...] right for you. Copyright Copyright ?? 2020 [employer]. and its affiliates and/or licensors. All rights [...] my stoma. Where can I learn more? [place] [employer] https://www.cancer.org/treatment/hyqemllpnm-pja-vnrx-effects/treatment-types/christa marcia/ostomies/ileostomy/management.html Wound Ostomy and Continence Nurses Society [...] right for you. Copyright Copyright ?? 2020 [employer]. and its affiliates and/or licensors. All rights reserved. * Attachments The following attachments cannot be sent through Care Everywhere. * How to Care for Your Mullins Catheter, Male (Kittitian) * Easton-Srinivasan Drain (Kittitian) * Low Fiber Diet (Kittitian) * How to Keep Track of Your Drainage (Kittitian) * Hydrocodone and Acetaminophen, ADULT (Kittitian) * Senna, ADULT (Kittitian) * Amoxicillin and Clavulanate, ADULT (Kittitian) documented in this encounter Medications at Time [...] Doing well. Plan: Okay to discharge home. [place] filled cystogram next and follow- up with [...] fit and apply new appliance Verbalized understanding [facility] homehealth will follow. Phone number for the [...] self care and support from wifeand inform [facility] Home Care is their home health preference. Referral completed to [facility] Home Care . Ostomy /wound care nurse will be meeting with patient today . [facility] to continue to follow. * Violet Rinaldi [...] Jane MD - 03/21/2021 10:12 AM CDT [facility] GENERAL SURGERY DAILY PROGRESS NOTE Mandie Cotter [...] Jane MD - 03/20/2021 9:36 AM CDT [facility] GENERAL SURGERY DAILY PROGRESS NOTE Mandie Cotter [...] index is 26.55 kg/m??. BMI Assessment: Normal [place] Body Weight: 136 pounds Percent [place] Body Weight: 121% Usual Body Weight: 166 [...] nursing Chewing/swallowing problems: No Food allergies/intolerances: none Cultural/Confucianism food preferences: none Current diet appropriate? Yes until safe to use the enteral route Current intake sufficient to meet nutritional needs? No Pain affecting PO intake? No Estimated Nutrient Needs: Calories: 2093-0603 kcal/day, based on 25-30 kcal/kg Protein: 94 gm/day, based on 1.25 gm/kg Fluid: 2000 ml/day, based on 30 cc/kg Labs: Alb 3.0, TP 6.6 HGB A1C Date Value Ref Range Status 02/15/2019 5.6 5.7 Final Nutrition Risk: High Inadequate Oral Intake Yes Unintended Weight Loss No Loss of Body Fat not completed Muscle Wasting not completed Fluid Accumulation No Reduced Brusher Tender Strength not completed Discharge nutrition plan: Discharge needs assessed. Will provide/update discharge instructions as needed. (See Nutrition Prescription above) [address] 03/19/21, 11:04 AM * Abdoulaye Jane MD - 03/19/2021 9:19 AM CDT [facility] GENERAL SURGERY DAILY PROGRESS NOTE Mandie Cotter [...] male that presented to the ED at [facility] for complaints of severe lower abdominal/suprapubic abdominal pain associated with subjective fevers and chills. He also stated that he did have associated urinary frequency but denied any particles in the urine. He denied any change in bowel movements. He stated that the pain was so severe but relieved with pain medication twice in the emergency department at [facility]. He believes his last colonoscopy was [...] COLONOSCOPY N/A 2013 ??? HERNIA REPAIR Right [facility] ??? HERNIA REPAIR Left [facility] ??? NECK/CHEST PROCEDURE UNLISTED Right [facility], re-built right side of neck. ??? TOTAL KNEE ARTHROPLASTY Bilateral ZANA Partial KR, done @ [facility] Social History Social History Socioeconomic History [...] Gatherings with Friends and Family: ??? Attends Confucianism Services: ??? Active Member of Clubs or [...] pt prior to discharge. All questions answered. [facility] home health to see pt tomorrow. * [...] bag and ring, and skin prep pads. [facility], [facility] health [...] of Surgery: 03/18/2021 Surgeon: Margarita Sloan MD Corrections Officer: Arthurner/Help Start: Cindy Hammond RN Circulating Nurse 1: Bianca Barclay RN Scrub Person 1: Susan Mcpherson, FRUIT LOADER MACHINE OPERATOR Scrub Person 2: Bharti Chávez LPN Pre-Op Diagnosis: perforated sigmoid diverticulitis with free air Post-Op Diagnosis: Same Procedure: Diagnostic laparoscopy, exploratory laparotomy with sigmoidectomy and colostomy (Hudson's procedure), suture repair of bladder, Briana VAC placement. Anesthesia Type: General Anesthesia Team: CARDIOGRAPHER: Jolene Cross CRNA; David Ha CRNA EBL: Less than 30 mL Complications: None Drains: 15 [place]an Easton-Srinivasan drain Indication: Mandie Cotter is a [...] was then held in place using a [place]. An elliptical incision was then made in [...] warm normal saline containing Ancef. A 15 [place] Ver[place]an Easton-Srinivasan drain was then placed through the [...] [facility] [place] [address] [place] [address] [place] [address] [place] [address] 10/22/2025 9:15 AM [employer] Office Visit [facility]-[address] [address] Mily Gan MD [address] [address] documented as of this encounter [...] CDT FINDINGS AND IMPRESSION: 1. ??After a tutoring manager image was obtained, the bladder was allowed to fill with Isovue-370 by gravity until the patient felt a full bladder sensation. Numerous images were acquired for the procedure in the AP and bilateral oblique projections. Final images were obtained after allowing the bladder to empty. 2. ??Assistant Health Educator radiograph demonstrates the patient is status post [...] mGy. FINDINGS AND IMPRESSION: 1. After a tutoring manager image was obtained, the bladder was allowed to fill withIsovue- 370 by gravity until the patient felt a full bladder sensation.Numerous images were acquired for the procedure in the AP and bilateraloblique projections. Final images were obtained after allowing the bladderto empty. 2. Assistant Health Educator radiograph demonstrates the patient is status post [...] - 2.4 MG/DL 03/22/2021 6:07 AM CDT [facility] 03/22/2021 5:00 AM CDT Lita Hu MD LABORATORY Final Result [facility] [address] [place] [address], [place] [phone] * (ABNORMAL) CBC W/DIFF AUTOMATED (03/22/2021 5:00 AM CDT) Pathologist [facility] WBC 8.4 4.8 - 10.8 x10'3/uL 03/22/2021 5:31 AM CDT [facility] RBC 3.87(L) 4.50 - 5.90 x10'6/uL 03/22/2021 5:31 AM CDT [facility] HGB 12.4(L) 13.5 - 17.5 G/DL 03/22/2021 5:31 AM CDT [facility] HCT 37.3(L) 41 - 53 % 03/22/2021 5:31 AM CDT [facility] MCV 96.4 80 - 100 FL 03/22/2021 5:31 AM CDT [facility] MCH 32.0 26.0 - 34.0 PG 03/22/2021 5:31 AM CDT [facility] MCHC 33.2 31.0 - 37.0 G/DL 03/22/2021 5:31 AM CDT [facility] RDW 12.9 11.5 - 14.5 % 03/22/2021 5:31 AM CDT [facility] PLT 225 150 - 350 x10'3/uL 03/22/2021 5:31 AM CDT [facility] CBC COMMENT AUTOMATED RBC MORPHOLOGY AND PLATELET EVALUATION NORMAL 03/22/2021 5:31 AM CDT [facility] NEUTROPHILS % 73.2(H) 50 - 70 % 03/22/2021 5:31 AM CDT [facility] LYMPHOCYTES % 16.9(L) 18 - 42 % 03/22/2021 5:31 AM CDT [facility] MONOCYTES % 8.7 2.0 - 11.0 % 03/22/2021 5:31 AM CDT [facility] EOSINOPHILS 0.8(L) 1.0 - 3.0 % 03/22/2021 5:31 AM CDT [facility] BASOPHILS 0.4 0.0 - 1.0 % 03/22/2021 5:31 AM CDT [facility] ABS. NEUTROPHILS TOTAL 6.11 1.69 - 7.81 x10'3/uL 03/22/2021 5:31 AM T [facility] 03/22/2021 5:00 AM CDT us Lita Hu MD LABORATORY Final Result [facility] [address] [place] [address], [place] [phone] * (ABNORMAL) BASIC METABOLIC PANEL (03/22/2021 5:00 AM CDT) [facility] GLUCOSE 97 70 - 99 MG/DL 03/22/2021 5:44 AM T [facility] BUN 6(L) 7 - 18 MG/DL 03/22/2021 5:44 AM T [facility] CREATININE S/P/B 0.80 0.7 - 1.3 MG/DL 03/22/2021 5:44 AM T [facility] SODIUM S/P/B 139 136 - 145 MMOL/L 03/22/2021 5:44 AM T [facility] POTASSIUM S/P/B 3.5 3.5 - 5.1 MMOL/L 03/22/2021 5:44 AM T [facility] CHLORIDE S/P/B 101 100 - 108 MMOL/L 03/22/2021 5:44 AM [facility] CO2 28.3 21 - 32 MMOL/L 03/22/2021 5:44 AM [facility] CALCIUM S/P/B 8.6 8.5 - 10.1 MG/DL 03/22/2021 5:44 AM [facility] ANION GAP 9.7 5 - 15 MMOL/L 03/22/2021 5:44 AM [facility] BUN CREATININE RATIO 7.5 6 - 26 03/22/2021 5:44 AM [facility] EGFR NON-AFR. AMER. >90 >90 ML/MIN/1.7 3 M2 03/22/2021 5:44 AM [facility] EGFR AFR. AMER. >90 >90 ML/MIN/1.7 3 M2 03/22/2021 5:44 AM T [facility] Comment: NOTE: eGFR is not calculated for patients <18 years of age. This is an estimated GFR (CKD EPI) and should not be used for calculating drug doses. 03/22/2021 5:00 AM CDT us Lita Hu MD LABORATORY Final Result Performing Organization Address [facility]/ZIP Co de Phone Number [facility] [address] [place] [address], [place] [phone] * (ABNORMAL) PHOSPHORUS, INORGANIC PHOSPHATE (03/21/2021 2:55 AM CDT) PHOSPHORUS 2.1(L) 2.5 - 4.9 MG/DL 03/21/2021 4:00 AM CDT [facility] 03/21/2021 2:55 AM CDT us Lita Hu MD LABORATORY Final Result Performing Organization Address [facility] Co de Phone Number [facility] [address] [place] [address], [place] [phone] * MAGNESIUM (03/21/2021 2:55 AM CDT) MAGNESIUM 2.0 1.8 - 2.4 MG/DL 03/21/2021 4:00 AM CDT [facility] 03/21/2021 2:55 AM CDT us Lita Hu MD LABORATORY Final Result Performing Organization Address [facility] Co de Phone Number [facility] [address] [place] [address], [place] [phone] * (ABNORMAL) CBC W/DIFF AUTOMATED (03/21/2021 2:55 AM CDT) WBC 8.6 4.8 - 10.8 x10'3/uL 03/21/2021 3:55 AM CDT [facility] RBC 3.58(L) 4.50 - 5.90 x10'6/uL 03/21/2021 3:55 AM CDT [facility] HGB 11.6(L) 13.5 - 17.5 G/DL 03/21/2021 3:55 AM CDT [facility] HCT 35.3(L) 41 - 53 % 03/21/2021 3:55 AM CDT [facility] MCV 98.6 80 - 100 FL 03/21/2021 3:55 AM CDT [facility] MCH 32.4 26.0 - 34.0 PG 03/21/2021 3:55 AM CDT [facility] MCHC 32.9 31.0 - 37.0 G/DL 03/21/2021 3:55 AM CDT [facility] RDW 13.6 11.5 - 14.5 % 03/21/2021 3:55 AM CDT [facility] PLT 182 150 - 350 x10'3/uL 03/21/2021 3:55 AM T [facility] CBC COMMENT AUTOMATED RBC MORPHOLOGY AND PLATELET EVALUATION NORMAL 03/21/2021 3:55 AM CDT [facility] NEUTROPHILS % 72.6(H) 50 - 70 % 03/21/2021 3:55 AM CDT [facility] LYMPHOCYTES % 19.2 18 - 42 % 03/21/2021 3:55 AM CDT [facility] MONOCYTES % 7.5 2.0 - 11.0 % 03/21/2021 3:55 AM CDT [facility] EOSINOPHILS 0.5(L) 1.0 - 3.0 % 03/21/2021 3:55 AM CDT [facility] BASOPHILS 0.2 0.0 - 1.0 % 03/21/2021 3:55 AM CDT [facility] ABS. NEUTROPHILS TOTAL 6.21 1.69 - 7.81 x10'3/uL 03/21/2021 3:55 AM CDT [facility] 03/21/2021 2:55 AM CDT Lita Hu MD LABORATORY Final Result [facility] [address] [place] [address], [place] [phone] * (ABNORMAL) BASIC METABOLIC PANEL (03/21/2021 2:55 AM CDT) GLUCOSE 122(H) 70 - 99 MG/DL 03/21/2021 4:06 AM CDT [facility] BUN 9 7 - 18 MG/DL 03/21/2021 4:06 AM T [facility] CREATININE S/P/B 0.70 0.7 - 1.3 MG/DL 03/21/2021 4:06 AM T [facility] SODIUM S/P/B 140 136 - 145 MMOL/L 03/21/2021 4:06 AM T [facility] POTASSIUM S/P/B 3.1(L) 3.5 - 5.1 MMOL/L 03/21/2021 4:06 AM CDT [facility] CHLORIDE S/P/B 106 100 - 108 MMOL/L 03/21/2021 4:06 AM T [facility] CO2 28.0 21 - 32 MMOL/L 03/21/2021 4:06 AM T [facility] CALCIUM S/P/B 7.7(L) 8.5 - 10.1 MG/DL 03/21/2021 4:06 AM T [facility] ANION GAP 6.0 5 - 15 MMOL/L 03/21/2021 4:06 AM CDT [facility] BUN CREATININE RATIO 12.9 6 - 26 03/21/2021 4:06 AM T [facility] EGFR NON-AFR. AMER. >90 >90 ML/MIN/1.7 3 M2 03/21/2021 4:06 AM T [facility] EGFR AFR. AMER. >90 >90 ML/MIN/1.7 3 M2 03/21/2021 4:06 AM T [facility] Comment: NOTE: eGFR is not calculated for patients <18 years of age. This is an estimated GFR (CKD EPI) and should not be used for calculating drug doses. 03/21/2021 2:55 AM CDT Lita Hu MD LABORATORY Final Result [facility] [address] [place] [id number], [place] [phone] * (ABNORMAL) COMPREHENSIVE METABOLIC PANEL (03/20/2021 5:15 AM CDT) [facility] Signature GLUCOSE 213(H) 70 - 99 MG/DL 03/20/2021 6:01 AM CDT [facility] BUN 17 7 - 18 MG/DL 03/20/2021 6:01 AM T [facility] CREATININE S/P/B 0.80 0.7 - 1.3 MG/DL 03/20/2021 6:01 AM T [facility] SODIUM S/P/B 142 136 - 145 MMOL/L 03/20/2021 6:01 AM T [facility] POTASSIUM S/P/B 3.7 3.5 - 5.1 MMOL/L 03/20/2021 6:01 AM [facility] CHLORIDE S/P/B 108 100 - 108 MMOL/L 03/20/2021 6:01 AM [facility] CO2 29.1 21 - 32 MMOL/L 03/20/2021 6:01 AM [facility] CALCIUM S/P/B 7.6(L) 8.5 - 10.1 MG/DL 03/20/2021 6:01 AM [facility] BILIRUBIN TOTAL S/P/B 0.8 0.2 - 1.2 MG/DL 03/20/2021 6:01 AM [facility] Comment: THIS ASSAY IS NOT RECOMMENDED FOR PATIENTS UNDERGOING TREATMENT WITH ELTROMBOPAG DUE TO THE POTENTIAL FOR FALSELY ELEVATED RESULTS. TOTAL PROTEIN S/P/B 6.4 6.4 - 8.2 G/DL 03/20/2021 6:01 AM [facility] ALBUMIN S/P/B 2.7(L) 3.4 - 5.0 G/DL 03/20/2021 6:01 AM [facility] AST 36 15 - 37 U/L 03/20/2021 6:01 AM [facility] ALT 33 16 - 60 U/L 03/20/2021 6:01 AM [facility] ALKALINE PHOSPHATASE S/P/B 33(L) 50 - 136 U/L 03/20/2021 6:01 AM [facility] ANION GAP 4.9(L) 5 - 15 MMOL/L 03/20/2021 6:01 AM [facility] BUN CREATININE RATIO 21.2 6 - 26 03/20/2021 6:01 AM [facility] A/G RATIO 0.7(L) 1.0 - 2.0 RATIO 03/20/2021 6:01 AM CDT [facility] EGFR NON-AFR. AMER. >90 >90 ML/MIN/1.7 3 M2 03/20/2021 6:01 AM CDT [facility] EGFR AFR. AMER. >90 >90 ML/MIN/1.7 3 M2 03/20/2021 6:01 AM CDT [facility] Comment: NOTE: eGFR is not calculated for patients <18 years of age. This is an estimated GFR (CKD EPI) and should not be used for calculating drug doses. 03/20/2021 5:15 AM CDT Sean Marquez APRN LABORATORY Final Re sult [facility] [address] [place] [address], * (ABNORMAL) CBC W/DIFF AUTOMATED (03/20/2021 5:15 AM CDT) WBC 11.2(H) 4.8 - 10.8 x10'3/uL 03/20/2021 5:46 AM CDT [facility] RBC 3.44(L) 4.50 - 5.90 x10'6/uL 03/20/2021 5:46 AM CDT [facility] HGB 11.1(L) 13.5 - 17.5 G/DL 03/20/2021 5:46 AM CDT [facility] HCT 34.1(L) 41 - 53 % 03/20/2021 5:46 AM CDT [facility] MCV 99.1 80 - 100 FL 03/20/2021 5:46 AM CDT [facility] MCH 32.3 26.0 - 34.0 PG 03/20/2021 5:46 AM CDT [facility] MCHC 32.6 31.0 - 37.0 G/DL 03/20/2021 5:46 AM CDT [facility] RDW 13.6 11.5 - 14.5 % 03/20/2021 5:46 AM CDT [facility] PLT 165 150 - 350 x10'3/uL 03/20/2021 5:46 AM CDT [facility] CBC COMMENT AUTOMATED RBC MORPHOLOGY AND PLATELET EVALUATION NORMAL 03/20/2021 5:46 AM CDT [facility] NEUTROPHILS % 80.1(H) 50 - 70 % 03/20/2021 5:46 AM CDT [facility] LYMPHOCYTES % 12.8(L) 18 - 42 % 03/20/2021 5:46 AM CDT [facility] MONOCYTES % 7.0 2.0 - 11.0 % 03/20/2021 5:46 AM CDT [facility] EOSINOPHILS 0.0(L) 1.0 - 3.0 % 03/20/2021 5:46 AM CDT [facility] BASOPHILS 0.1 0.0 - 1.0 % 03/20/2021 5:46 AM CDT [facility] ABS. NEUTROPHILS TOTAL 9.00(H) 1.69 - 7.81 x10'3/uL 03/20/2021 5:46 AM T [facility] 03/20/2021 5:15 AM CDT us Sean Marquez APRN LABORATORY Final Re sult [facility] [address] [place] [address], [place] [phone] * MAGNESIUM (03/19/2021 5:45 AM CDT) MAGNESIUM 2.0 1.8 - 2.4 MG/DL 03/19/2021 7:12 AM CDT [facility] 03/19/2021 5:45 AM CDT us Margarita Sloan MD LABORATORY Final Result [facility] [address] [place] [address], [place] [phone] * (ABNORMAL) COMPREHENSIVE METABOLIC PANEL (03/19/2021 5:45 AM CDT) GLUCOSE 153(H) 70 - 99 MG/DL 03/19/2021 7:12 AM CDT [facility] BUN 16 7 - 18 MG/DL 03/19/2021 7:12 AM CDT [facility] CREATININE S/P/B 0.80 0.7 - 1.3 MG/DL 03/19/2021 7:12 AM CDT [facility] SODIUM S/P/B 137 136 - 145 MMOL/L 03/19/2021 7:12 AM CDT [facility] POTASSIUM S/P/B 4.1 3.5 - 5.1 MMOL/L 03/19/2021 7:12 AM CDT [facility] CHLORIDE S/P/B 104 100 - 108 MMOL/L 03/19/2021 7:12 AM CDT [facility] CO2 25.3 21 - 32 MMOL/L 03/19/2021 7:12 AM CDT [facility] CALCIUM S/P/B 7.9(L) 8.5 - 10.1 MG/DL 03/19/2021 7:12 AM CDT [facility] BILIRUBIN TOTAL S/P/B 1.3(H) 0.2 - 1.2 MG/DL 03/19/2021 7:12 AM [facility] Comment: THIS ASSAY IS NOT RECOMMENDED FOR PATIENTS UNDERGOING TREATMENT WITH ELTROMBOPAG DUE TO THE POTENTIAL FOR FALSELY ELEVATED RESULTS. TOTAL PROTEIN S/P/B 6.6 6.4 - 8.2 G/DL 03/19/2021 7:12 AM [facility] ALBUMIN S/P/B 3.0(L) 3.4 - 5.0 G/DL 03/19/2021 7:12 AM [facility] AST 30 15 - 37 U/L 03/19/2021 7:12 AM [facility] ALT 32 16 - 60 U/L 03/19/2021 7:12 AM [facility] ALKALINE PHOSPHATASE S/P/B 31(L) 50 - 136 U/L 03/19/2021 7:12 AM [facility] ANION GAP 7.7 5 - 15 MMOL/L 03/19/2021 7:12 AM [facility] BUN CREATININE RATIO 20.0 6 - 26 03/19/2021 7:12 AM [facility] A/G RATIO 0.8(L) 1.0 - 2.0 RATIO 03/19/2021 7:12 AM [facility] EGFR NON-AFR. AMER. >90 >90 ML/MIN/1.7 3 M2 03/19/2021 7:12 AM [facility] EGFR AFR. AMER. >90 >90 ML/MIN/1.7 3 M2 03/19/2021 7:12 AM [facility] Comment: NOTE: eGFR is not calculated for patients <18 years of age. This is an estimated GFR (CKD EPI) and should not be used for calculating drug doses. 03/19/2021 5:45 AM CDT us Margarita Sloan MD LABORATORY Final Result [facility] [address] [place] [address], [place] [phone] * (ABNORMAL) CBC W/DIFF AUTOMATED (03/19/2021 5:45 AM CDT) WBC 9.8 4.8 - 10.8 x10'3/uL 03/19/2021 7:03 AM CDT [facility] RBC 3.77(L) 4.50 - 5.90 x10'6/uL 03/19/2021 7:03 AM CDT [facility] HGB 12.0(L) 13.5 - 17.5 G/DL 03/19/2021 7:03 AM CDT [facility] HCT 36.5(L) 41 - 53 % 03/19/2021 7:03 AM CDT [facility] MCV 96.8 80 - 100 FL 03/19/2021 7:03 AM CDT [facility] MCH 31.8 26.0 - 34.0 PG 03/19/2021 7:03 AM CDT [facility] MCHC 32.9 31.0 - 37.0 G/DL 03/19/2021 7:03 AM CDT [facility] RDW 13.3 11.5 - 14.5 % 03/19/2021 7:03 AM CDT [facility] PLT 195 150 - 350 x10'3/uL 03/19/2021 7:03 AM CDT [facility] NEUTROPHILS % 88.7(H) 50 - 70 % 03/19/2021 7:06 AM CDT [facility] LYMPHOCYTES % 6.4(L) 18 - 42 % 03/19/2021 7:06 AM CDT [facility] MONOCYTES % 4.9 2.0 - 11.0 % 03/19/2021 7:06 AM CDT [facility] EOSINOPHILS 0.0(L) 1.0 - 3.0 % 03/19/2021 7:06 AM CDT [facility] BASOPHILS 0.0 0.0 - 1.0 % 03/19/2021 7:06 AM CDT [facility] ABS. NEUTROPHILS TOTAL 8.69(H) 1.69 - 7.81 x10'3/uL 03/19/2021 7:06 AM CDT [facility] PLT MORPH. 1+ 03/19/2021 7:06 AM CDT [facility] Comment:GIANT PLATELETS RBC MORPHOLOGY NORMAL 03/19/2021 7:06 AM CDT [facility] 03/19/2021 5:45 AM CDT Margarita Sloan MD LABORATORY Final Result [facility] [address] [place] [address], [place] [phone] * XR CHEST PORTABLE (03/19/2021 1:16 AM [...] DESCRIPTION PERITONEAL FLUID 03/20/2021 9:59 AM CDT [facility] SPECIAL REQUESTS SWAB 03/20/2021 9:59 AM CDT [facility] GRAM STAIN RESULT NO WHITE BLOOD CELLS SEEN 03/19/2021 12:10 PM CDT [facility] GRAM STAIN RESULT NO ORGANISMS SEEN 03/19/2021 12:10 PM CDT [facility] CULTURE RESULT SPARSE GROWTH OF ENTEROBACTER CLOACAE COMPLEX (A) 03/24/2021 12:36 PM CDT [facility] CULTURE RESULT SPARSE GROWTH OF BACTEROIDES THETAIOTAOMICRON BETA LACTAMASE POSITIVE SUSCEPTIBILTY NOT ROUTINELY PERFORMED. SAVING ISOLATE FOR 5 DAYS. CONTACT MICROBIOLOGY DEPARTMENT IF FURTHER WORKUP IS INDICATED. (A) 03/24/2021 12:36 PM CDT [facility] CULTURE RESULT NOTE: ANAEROBIC CULTURES ARE ROUTINELY SCREENED FOR BOTH AEROBIC AND ANAEROBIC ORGANISMS. 03/24/2021 12:36 PM CDT [facility] Body fluid specimen (specimen) PERITONEAL FLUID [...] MICROBIOLOGY - GENERAL ORDER ZAMZAM Final Result [facility] [address] [place] [address], [place] [phone] * TYPE & SCREEN (03/18/2021 2:33 PM CDT) ABO/RH O POSITIVE 03/18/2021 3:52 PM CDT [facility] ANTIBODY SCREEN NEGATIVE 03/18/2021 4:14 PM CDT [facility] SAMPLE EXPIRATION 03/21/2021,2 359 03/18/2021 3:52 PM CDT [facility] 03/18/2021 2:33 PM CDT Margarita Solan MD BLOOD BANK TEST ORDERABLES F inal Result [facility] () [facility] [address] [place] [address], * Pathology (03/18/2021 7:06 AM CDT) COPATH REPORT ?[facility] ? [address] ?[place], [place] [address] ? [phone] ? Department of Pathology ? Pathology Report ? Surgical Pathology Report Patient Name: MANDIE COTTER ? : 1955 (Age: 65) ? Location: [id number] Gender: M ?Collected Date: 03/18/2021 Med Rec #: [id number] ?Date Received: 03/19/2021 Date Reported: 03/22/2021 Provider: [...] lymph nodes ?SO/plb :pb Billing Fee Code(s): 65103 [facility] Tissue specimen (specimen) COLON STRUCTURE / Unknown 03/18/2021 4:54 PM CDT Comment:No formalin on speci men us Margarita Sloan MD PATHOLOGY/CYTOLOGY ORDERABLE S Final Result [facility] [address] [place] [address], [place] [phone] documented in this encounter Visit Diagnoses Diagnosis [...] (New Bag - Provider: Tonja Morales RN) 0669 (New Bag - Provider: Ruma Treviño, GINA)6263 (New Bag - Provider: Delmy Shirley, GINA)0350 (New Bag - Provider: Ruma Treviño, GINA) [...] (COMPLETED) documented in this encounter Care Teams Ornamental Iron Erector Relationship Specialty Start Date End Date Jeremy Castanon MD PCP - General INTERNAL MEDICINE 01/15/20 02/09/23 Moraima Toledo, RN [address] [place] [address] Lodging House Keeper (Ambulatory) REGISTERED NURSE 03/19/21 documented as of this encounter
--- OUTSIDE RECORDS SUMMARY | 2024-11-02 09:19 | XMS_ITS | Encounter Summary ---
Author Organization [facility] Address [address] [place] [address]. 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 Gender Identity Not on file Sexual Orientation Not on file documented as of this encounter Plan of Treatment Upcoming Encounters Date Type Department Care Team (Late st Contact Info) Description 01/27/2025 7:00 AM CDT Office Visit [facility] Family & Internal Medicine [address] [address] Ilir Nelson PA [address] [place] [address] 10/22/2025 9:15 AM SEMICONDUCTOR ASSEMBLER Office Visit [facility] [address] Mily Gan MD [facility] [address] [place] [address] documented as of this encounter Visit Diagnoses Not on filedocumented in this encounter Care Teams Museum Educator Relationship Specialty Start Date End Date Lorie Chan MD PCP - General INTERNAL MEDICINE 01/15/20 02/09/23 documented as of this encounter
--- OUTSIDE RECORDS SUMMARY | 2024-11-02 09:19 | XMS_ITS | Encounter Summary ---
Author Organization [facility] Address [address] [place] [address]. [place], [place] [address] [place] [address] Care Team Providers Care Screener And Blender Name Role Phone Lorie Castanon MD Primary Care Provider [phone] Reason for Referral * Consultation (Routine) - Closed Specialty Diagnoses / Procedures Referred By Shelby jama Referred To Contact GASTROENTEROLOGY Diagnoses Pharyngeal dysphagia Lorie Castanon MD Phone: tel: [place]: [place] [address] [place] [address] Phone: tel: fax: Referral ID Status Reason Start Date Expiration Date Visits Re quested Visits Authorized [id number] Closed 01/25/2021 01/25/2022 6 6 Scheduling Instructions DYSPHAGIA, FEELS LIKE FOOD IS CATCHING, BROTHER HAD HEAD & NECK CA PT LONG TIME SMOKER H FOODS CAKE DECORATOR * Imaging (Routine) - Closed Specialty Diagnoses / Procedures Referred By Shelby jama Referred To Contact RADIOLOGY Diagnoses Encounter for abdominal aortic aneurysm (AAA) screening Procedures US AORTA Lorie Castanon MD Phone: tel: fax: Referral ID Status Reason Start Date Expiration Date Visits Re quested Visits Authorized [id number] Closed 01/12/2021 02/12/2022 2 2 H FOODS CAKE DECORATOR Reason for Visit * Reason Comments Follow Up Patient is here for a 6month follow up. Patient states that he has a few spots on his chest, face and arm. Noticed them for a while. States that they itch. Encounter Details Date Type Department Care Team (Late st Contact Info) Description 01/12/2021 8:00 AM FRESH FOODS CAKE DECORATOR Office Visit [facility] [address] [place] [address] [place] [address] [place] [address] Follow Up (Patient is here [...] on file Legal Sex Male 9:58 PM FRESH FOODS CAKE DECORATOR Gender Identity Not on file Sexual Orientation Not on file COVID-19 Exposure Response Date Recorded In the last month, have you been in contact with someone who was confirmed or suspected to have Coronavirus / COVID-19? No / Unsure 01/14/2021 3:20 PM FRESH FOODS CAKE DECORATOR documented as of this encounter Last Filed Vital Signs Vital Sign Reading Time Taken Comments Blood Pressure 120/86 01/12/2021 8:09 AM FRESH FOODS CAKE DECORATOR Pulse 74 01/12/2021 8:09 AM FRESH FOODS CAKE DECORATOR Temperature 36.4 ??C (97.6 ??F) 01/12/2021 8:09 AM CS T Respiratory Rate 20 01/12/2021 8:09 AM FRESH FOODS CAKE DECORATOR Oxygen Saturation 98% 01/12/2021 8:09 AM FRESH FOODS CAKE DECORATOR Inhaled Oxygen Concentration - - Weight 72.7 kg (160 lb 3.2 oz) 01/12/2021 8:09 A M FRESH FOODS CAKE DECORATOR Height 167.6 cm (5' 6 ) 01/12/2021 8:09 AM FRESH FOODS CAKE DECORATOR Body Mass Index 25.86 01/12/2021 8:09 AM FRESH FOODS CAKE DECORATOR documented in this encounter Progress Notes * [...] COLONOSCOPY N/A 2013 ??? HERNIA REPAIR Right [facility] ??? HERNIA REPAIR Left [facility] ??? NECK/CHEST PROCEDURE UNLISTED Right [facility], re-built right side of neck. ??? TOTAL KNEE ARTHROPLASTY Bilateral ZANA Partial KR, done @ [facility] Social History Socioeconomic History ??? Marital [...] file Gets together: Not on file Attends holiness service: Not on file Active member of [...] [facility] [address] [address] Ilir Nelson PA [address] [place] [address] 10/22/2025 9:15 AM FRESH FOODS CAKE DECORATOR Office Visit [facility] [address] [facility] [place] [address] Mily Gan MD [facility] [address] [place] [address] Scheduled Referrals Name Type Priority Associated Diagnoses Orde r Schedule Ambulatory referral to Gastroenterology (OTHER) Referral Routine Pharyngeal dysphagia Ordered: 01/12/2021 documented as of this encounter Results * (ABNORMAL) VITAMIN B12 / FOLATE (07/07/2021 10:38 AM CDT) VITAMIN B12 S/P/B 1,297(H) 193 - 986 PG/ML 07/07/2021 12:04 PM CDT [facility] FOLATE >20.0 8.6 - 58.9 NG/ML 07/07/2021 12:04 PM CDT [facility] 07/07/2021 10:3 8 AM CDT us Lorie Castanon MD LABORATORY Final Result [facility] [address] [place] [address], [place] [phone] * TSH W/REFLEX (07/07/2021 10:38 AM CDT) TSH 1.649 0.358 - 3.74 uIU/ML 07/07/2021 12:04 PM CDT [facility] Comment: HIGH DOSES OF BIOTIN MAY INTERFERE WITH THIS TEST RESULT. CORRELATION TO CLINICAL HISTORY AND PRESENTATION RECOMMENDED. FREE T4 NOT INDICATED 07/07/2021 10:3 8 AM CDT us Lorie Castanon MD LABORATORY Final Result [facility] [address] [place] [address], [place] [phone] * PROSTATE SPECIFIC ANTIGEN,SCREENING (07/07/2021 10:38 AM CDT) PSA 1.10 <4.00 NG/ML 07/07/2021 11:22 AM CDT [facility] Comment: Test was performed using the Siemens method. ??Results obtained with other assay methods or kits cannot be used interchangeably with results obtained by the Siemens method. 07/07/2021 10:3 8 AM CDT Lorie Castanon MD LABORATORY Final Result Performing Organization Address [facility] Co de Phone Number [facility] [address] [place] [address], [place] [phone] * LIPID PANEL (07/07/2021 10:38 AM CDT) CHOLESTEROL 137 <200.0 MG/DL 07/07/2021 12:04 PM CDT [facility] TRIGLYCERIDES 95 <150 MG/DL 07/07/2021 12:04 PM T [facility] HDL 52 >40.0 MG/DL 07/07/2021 12:04 PM T [facility] LDL (CALCULATED) 66 <100 MG/DL 07/07/20 21 12:04 PM T [facility] NON HDL CHOLESTEROL 85 <130 MG/DL 07/07 12:04 PM T [facility] CHOL/HDL RATIO 2.6 0.0 - 4.5 07/07/2021 12:04 PM T [facility] VLDL CALCULATION 19 5 - 55 MG/DL 07/07/2021 12:04 PM CDT [facility] LIPID INTERPRETATION 07/07/2021 12:04 PM CDT [facility] Comment: NIH CONCENSUS [...] CDT Lorie Castanon MD LABORATORY Final Result [facility] [address] [place] [address], [place] [phone] * (ABNORMAL) COMPREHENSIVE METABOLIC PANEL (07/07/2021 10:38 AM CDT) [facility] Signature GLUCOSE 100(H) 70 - 99 MG/DL 07/07/2021 12:04 PM CDT [facility] BUN 12 7 - 18 MG/DL 07/07/2021 12:04 PM CDT [facility] CREATININE S/P/B 0.95 0.7 - 1.3 MG/DL 07/07/2021 12:04 PM T [facility] SODIUM S/P/B 142 136 - 145 MMOL/L 07/07/2021 12:04 PM T [facility] POTASSIUM S/P/B 5.3(H) 3.5 - 5.1 MMOL/L 07/07/2021 12:04 PM T [facility] CHLORIDE S/P/B 106 100 - 108 MMOL/L 07/07/2021 12:04 PM T [facility] CO2 33.1(H) 21 - 32 MMOL/L 07/07/2021 12:04 PM T [facility] CALCIUM S/P/B 9.2 8.5 - 10.1 MG/DL 07/07/2021 12:04 PM T [facility] BILIRUBIN TOTAL S/P/B 0.8 0.2 - 1.2 MG/DL 07/07/2021 12:04 PM T [facility] TOTAL PROTEIN S/P/B 7.9 6.4 - 8.2 G/DL 07/07/2021 12:04 PM CDT [facility] ALBUMIN S/P/B 3.7 3.4 - 5.0 G/DL 07/07/2021 12:04 PM CDT [facility] AST 24 15 - 37 U/L 07/07/2021 12:04 PM T [facility] ALT 30 16 - 60 U/L 07/07/2021 12:04 PM T [facility] ALKALINE PHOSPHATASE S/P/B 53 50 - 136 U/L 07/07/2021 12:04 PM T [facility] ANION GAP 2.9(L) 5 - 15 MMOL/L 07/07/2021 12:04 PM T [facility] BUN CREATININE RATIO 12.6 6 - 26 07/07/2021 12:04 PM T [facility] A/G RATIO 0.9(L) 1.0 - 2.0 RATIO 07/07/2021 12:04 PM [facility] EGFR NON-AFR. AMER. 83(L) >90 ML/MIN/1.7 3 M2 07/07/2021 12:04 PM T [facility] EGFR AFR. AMER. >90 >90 ML/MIN/1.7 3 M2 07/07/2021 12:04 PM T [facility] Comment: NOTE: eGFR is not calculated for patients <18 years of age. This is an estimated GFR (CKD EPI) and should not be used for calculating drug doses. 07/07/2021 10:3 8 AM CDT us Lorie Castanon MD LABORATORY Final Result [facility] [address] [place] [address], [place] [phone] * (ABNORMAL) CBC W/DIFF AUTOMATED (07/07/2021 10:38 AM CDT) [facility] WBC 4.5 4.4 - 11.0 x10'3/uL 07/07/2021 10:56 AM CDT [facility] RBC 4.70 4.50 - 5.90 x10'6/uL 07/07/2021 10:56 AM T [facility] HGB 14.8 14.0 - 17.5 G/DL 07/07/2021 10:56 AM T [facility] HCT 44.4 41.5 - 50.4 % 07/07/2021 10:56 AM T [facility] MCV 94.5 80.0 - 96.0 FL 07/07/2021 10:56 AM T [facility] MCH 31.5(H) 26.5 - 31.4 PG 07/07/2021 10:56 AM T [facility] MCHC 33.3 31.9 - 34.8 G/DL 07/07/2021 10:56 AM T [facility] RDW 13.3 12.3 - 14.3 % 07/07/2021 10:56 AM T [facility] PLT 275 151 - 353 x10'3/uL 07/07/2021 10:56 AM T [facility] MPV 10.2 9.7 - 11.9 FL 07/07/2021 10:56 AM T [facility] RBC MORPHOLOGY NORMAL 07/07/2021 10:56 AM T [facility] PLT MORPH. NORMAL 07/07/2021 10:56 AM T [facility] WBC MORPHOLOGY NORMAL 07/07/2021 10:56 AM T [facility] LYMPHOCYTES % 37.0 15.8 - 45.0 % 07/07/2021 10:56 AM CDT [facility] NEUTROPHILS % 48.6 42.1 - 71.9 % 07/07/2021 10:56 AM CDT [facility] MONOCYTES % 11.5 5.7 - 12.5 % 07/07/2021 10:56 AM CDT [facility] EOSINOPHILS 1.8 0.0 - 5.6 % 07/07/2021 10:56 AM CDT [facility] BASOPHILS 0.9 0.0 - 1.3 % 07/07/2021 10:56 AM CDT [facility] ABS. NEUTROPHILS TOTAL 2.21 1.40 - 6.00 x10'3/uL 07/07/2021 10:56 AM CDT [facility] IMMATURE GRANS % 0.2 0.0 - 0.5 % 07/07/2021 10:56 AM CDT [facility] ABS. LYMPHOCYTES 1.68 0.80 - 4.70 x10'3/uL 07/07/2021 10:56 AM CDT [facility] 07/07/2021 10:3 8 AM CDT us Lorie Castanon MD LABORATORY Final Result Performing Organization Address City/State/[facility] Co de Phone Number [facility] [address] [place] [address], [place] [phone] * US AORTA (01/15/2021 8:43 AM FRESH FOODS CAKE DECORATOR) Anatomical Region Laterality Modality Abdomen Ultrasound 01/15/2021 10:5 9 AM FRESH FOODS CAKE DECORATOR Impressions 01/15/2021 11:00 AM FRESH FOODS CAKE DECORATOR IMPRESSION: 1. ??No evidence of abdominal aortic aneurysm. Referred By: LORIE CASTANON Interpreted By: Moncho Cheng, 01/15/2021 10:59 AM Narrative 01/15/2021 11:00 AM FRESH FOODS CAKE DECORATOR IMAGING STUDIES: ??US AORTA ? DATE: ??01/15/2021 8:27 AM COMPARISON STUDIES: No previous available. ?? CLINICAL HISTORY: ??AAA screening > 50 pack years tob ?.Additional history FINDINGS: ?? Real-time ultrasound examination of the aorta was performed by the dish carrier using B-mode/arriaza-scale, Doppler spectral analysis and color [...] of the aorta was performed by the dish carrier using B-mode/arriaza-scale, Doppler spectral analysis and color [...] screening documented in this encounter Care Teams Screener And Blender Relationship Specialty Start Date End Date Lorie Castanon MD PCP - General INTERNAL MEDICINE 01/15/20 02/09/23 documented as of this encounter
--- OUTSIDE RECORDS SUMMARY | 2024-11-02 09:19 | XMS_ITS | Encounter Summary ---
Author Organization [facility] Address [address] [place] [address]. [place] [address] [place] [address] Care Team Providers Care Ict Project Manager Name Role Phone Lorie Chan MD Primary Care Provider [phone] Moraima Toledo RN Unavailable [phone] Encounter Details Date Type Department Care Team (Late st Contact Info) Description 03/18/2021 Scan [facility] [address] [place], [place] [address] Scanned, Documents Social History Tobacco Use Types [...] on file Legal Sex Male 9:58 PM TECHNICAL ASST Gender Identity Not on file Sexual Orientation [...] [facility] [address] [place] [address] [place] [address] [place] [address] 10/22/2025 9:15 AM TECHNICAL ASST Office Visit [facility] [address] [address] Mily Gan MD [address] [address] documented as of this [...] on filedocumented in this encounter Care Teams Ict Project Manager Relationship Specialty Start Date End Date Lorie Chan MD PCP - General INTERNAL MEDICINE 01/15/20 02/09/23 Moraima Toledo, RN [address] [place], [place] [address] Buffer Chrome (Ambulatory) REGISTERED NURSE 03/19/21 documented as of this encounter
--- OUTSIDE RECORDS SUMMARY | 2024-11-02 09:19 | XMS_ITS | Encounter Summary ---
Author Organization [facility] Address [address] [place] [address]. [place], [place] [address] [place] [address] Care Team Providers Care Retrieval Specialist Name Role Phone Lorie Chan MD Primary Care Provider [phone] Encounter Details Date Type Department Care Team (Late Contact Info) Description 12/17/2020 3:55 PM TRIMMER AND BORER MACHINE OPERATOR Flu/Imm Clinic [facility] [address] [place] [address] Social History Tobacco Use Types Packs/Day Years Used Date Smoking Tobacco: Every Day Cigarettes Smokeless Tobacco: Never Alcohol Use Standard Drinks/Week Comments Yes 0 (1 standard drink = 0.6 oz pur e alcohol) Occasionally PHQ-2 Answer Date Recorded PHQ-2 Score 0 01/15/2020 Sex and Gender Information Value Date Recorded Sex Assigned at Not on file Legal Sex Male 9:58 PM TRIMMER AND BORER MACHINE OPERATOR Gender Identity Not on file Sexual Orientation Not on file COVID-19 Exposure Response Date Recorded In the last month, have you been in contact with someone who was confirmed or suspected to have Coronavirus / COVID-19? No / Unsure 12/17/2020 3:26 PM TRIMMER AND BORER MACHINE OPERATOR documented as of this encounter Plan of Treatment Upcoming Encounters Date Type Department Care Team (Late Contact Info) Description 01/27/2025 7:00 AM CDT Office Visit [facility] Family & Internal Medicine [facility] [address] [place] [address] [place] [address] [place] [address] 10/22/2025 9:15 AM TRIMMER AND BORER MACHINE OPERATOR Office Visit [facility] [address] [place] [address] Mily Gan MD [facility] [address] [place] [address] documented as of this encounter Visit Diagnoses Diagnosis Need for prophylactic vaccination against viral disease- Primary Need for prophylactic vaccination and inoculation against other viral diseases documented in this encounter Care Teams Retrieval Specialist Relationship Specialty Start Date End Date Lorie Chan MD PCP - General INTERNAL MEDICINE 01/15/20 02/09/23 documented as of this encounter
--- OUTSIDE RECORDS SUMMARY | 2024-11-02 09:19 | XMS_ITS | Encounter Summary ---
Author Organization [facility] Address [address] [place] [address]. [place], [place] [address] [place] [address] Care Team Providers Care Pigment Supplier Name Role Phone Lorie Chan MD Primary Care Provider [phone] Encounter Details Date Type Department Care Team (Late Contact Info) Description 07/21/2020 Orders Only [facility] Family & Internal Medicine [address] [address] Xi Page RN Social History [...] on file Legal Sex Male 9:58 PM UNEMPLOYMENT INSURANCE DIRECTOR Gender Identity Not on file Sexual [...] [facility] [address] [address] [place] [address] [place] [address] 10/22/2025 9:15 AM UNEMPLOYMENT INSURANCE DIRECTOR Office Visit [facility] [address] [place] [place] [address] Mily Gna MD [facility] [address] [place] [address] documented as of this encounter Visit Diagnoses Diagnosis RANDY on CPAP Obstructive sleep apnea (adult) (pediatric) documented in this encounter Care Teams Pigment Supplier Relationship Specialty Start Date End Date Lorie Chan MD PCP - General INTERNAL MEDICINE 01/15/20 02/09/23 documented as of this encounter
--- OUTSIDE RECORDS SUMMARY | 2024-11-02 09:19 | XMS_ITS | Encounter Summary ---
Author Organization [facility] Address [address] [place] [address]. [place], [place] [address] [place] [address] Care Team Providers Care Flight Control Manager Name Role Phone Lorie Chan MD Primary Care Provider [phone] Reason for Visit * Auth/Cert Specialty Diagnoses / Procedures Referred By Shelby jama Referred To Contact Diagnoses Pharyngoesophageal dysphagia Dysphagia Procedures UPPER GI ENDOSCOPY,DIAGNOSIS EGD Referral ID Status Reason Start Date Expiration Date Visits Re quested Visits Authorized [id number] 1 1 Encounter Details Date Type Department Care Team (Late st Contact Info) Description 03/10/2021 8:54 AM CDT Anesthesia Event [facility] [address] [place] [address] Meredith Villagran CRNA [address] [place] [address] Bharti Juarez CRNA [address] [place] [address] Anesthesia Record Procedure Summary Procedure Name Responsible Anesthesiologist Anesthesia Start Time Anesthesia Stop Time EGD WITH BIOPSY AND DILATION (Esophagus) Meredith Villagran CRNA 03/10/21 0854 03/10/21 0915 Events Date Time Event Comment 03/10/2021 0728 0728 AN MOBILE EQUIPMENT OPERATOR Prepped 0854 An Start Patient ID and [...] file Legal Sex Male 9:58 PM MEDICAL TRANSPORT SPECIALIST Gender Identity Not on file Sexual [...] Family & Internal Medicine [facility] [address] [place] [address] [place] [address] [place] [address] 10/22/2025 9:15 AM MEDICAL TRANSPORT SPECIALIST Office Visit [facility] [address] [address] Mily Gan MD [address] [id number] documented as of this encounter Goals Goal [...] mg documented in this encounter Care Teams Flight Control Manager Relationship Specialty Start Date End Date oLrie Chan MD PCP - General INTERNAL MEDICINE 01/15/20 02/09/23 documented as of this encounter
--- OUTSIDE RECORDS SUMMARY | 2024-11-02 09:19 | XMS_ITS | Encounter Summary ---
Author Organization [facility] Address [address] [place] [address]. [place], [place] [address] [place] [address] Care Team Providers Care Deicer Repairer Pneumatic Name Role Phone Lorie Chan MD Primary Care Provider [phone] Encounter Details Date Type Department Care Team [...] on file Legal Sex Male 9:58 PM ALIGNMENT TECHNICIAN Gender Identity Not on file Sexual [...] Group Family & Internal Medicine [facility] [address] [place] [address] Ilir Nelson PA [address] [place] [address] 10/22/2025 9:15 AM ALIGNMENT TECHNICIAN Office Visit [facility] [address] [place] [address] Mily Gan MD [facility] [address] [place] [address] documented as of this encounter Visit Diagnoses Not on filedocumented in this encounter Care Teams Deicer Repairer Pneumatic Relationship Specialty Start Date End Date Lorie Chan MD PCP - General INTERNAL MEDICINE 01/15/20 02/09/23 documented as of this encounter
--- OUTSIDE RECORDS SUMMARY | 2024-11-02 09:19 | XMS_ITS | Encounter Summary ---
Author Organization [facility] Address [address] [place] [address]. [place], [place] [address] [place] [address] Care Team Providers Care Stripper Cutter Machine Name Role Phone Unavailable Primary Care Provider Unavailabl e Encounter Details Date Type Department Care Team (Latest Contact Info) Description 01/02/2020 Scan HEALTH INFO SRVCS Scanned, Documents Social History Tobacco Use Types Packs/Day Years Used Date Smoking Tobacco: Never Assessed Sex and Gender Information Value Date Recorded Sex Assigned at Not on file Legal Sex Male 9:58 PM CLINICAL APPLICATIONS SPECIALIST Gender Identity Not on file Sexual Orientation Not on file documented as of this encounter Plan of Treatment Upcoming Encounters Date Type Department Care Team (Late st Contact Info) Description 01/27/2025 7:00 AM CDT Office Visit [facility] Family & Internal Medicine - [place] [id number] [place] [address] [place] [id number] [place] [address] 10/22/2025 9:15 AM CLINICAL APPLICATIONS SPECIALIST Office Visit [facility] [address] Mily Gan MD [address] [place] [address] documented as of this encounter Visit Diagnoses Not on filedocumented in this encounter
--- OUTSIDE RECORDS SUMMARY | 2024-11-02 09:19 | XMS_ITS | Encounter Summary ---
Author Organization [facility] Address [address] [place] [address]. [place], [place] [address] [place] [address] Care Team Providers Care Biofuels Technology Development Manager Name Role Phone Lorie Castanon MD Primary Care Provider [phone] Reason for Referral * Imaging (Routine) - Closed Specialty Diagnoses / Procedures Referred By Shelby jama Referred To Contact RADIOLOGY Diagnoses Encounter for abdominal aortic aneurysm (AAA) screening Procedures US AORTA Lorie Castanon MD Phone: tel: fax: Referral ID Status Reason Start Date Expiration Date Visits Re quested Visits Authorized [id number] Closed 01/12/2021 02/12/2022 2 2 NERSHIP MARKETING MANAGER Reason for Visit * Imaging (Routine) - Closed Specialty Diagnoses / Procedures Referred By Shelby jama Referred To Contact RADIOLOGY Diagnoses Encounter for abdominal aortic aneurysm (AAA) screening Procedures US AORTA Lorie Castanon MD Phone: tel: fax: Referral ID Status Reason Start Date Expiration Date Visits Re quested Visits Authorized [id number] Closed 01/12/2021 02/12/2022 2 2 Encounter Details Date Type Department Care Team (Latest Contact Info) Description 01/15/2021 8:07 AM PARTNERSHIP MARKETING MANAGER - 01/15/2021 11:59 PM PARTNERSHIP MARKETING MANAGER Hospital Encounter [facility] Ultrasound [address] [place] [address] [place] [address] [place] [address] Discharge Disposition: Home or Self Care (Routine [...] on file Legal Sex Male 9:58 PM PARTNERSHIP MARKETING MANAGER Gender Identity Not on file Sexual Orientation Not on file COVID-19 Exposure Response Date Recorded In the last month, have you been in contact with someone who was confirmed or suspected to have Coronavirus / COVID-19? No / Unsure 01/14/2021 3:20 PM PARTNERSHIP MARKETING MANAGER documented as of this encounter Medications at [...] him of the results. Patient voiced understanding. NERSHIP MARKETING MANAGER documented in this encounter Plan of Treatment Upcoming Encounters Date Type Department Care Team (Late st Contact Info) Description 01/27/2025 7:00 AM CDT Office Visit [facility] [address] [place] [address] [place] [address] [place], [place] [id number] 10/22/2025 9:15 AM PARTNERSHIP MARKETING MANAGER Office Visit [facility] [address] Mily Gan MD [address] [address] documented as of this encounter Procedures Procedure Name Priority Date/Time Associated Diagnosis Comments US AORTA Routine 01/15/2021 8:43 AM PARTNERSHIP MARKETING MANAGER Encounter for abdominal aortic aneurysm (AAA) screening documented in this encounter Results * US AORTA (01/15/2021 8:43 AM PARTNERSHIP MARKETING MANAGER) Anatomical Region Laterality Modality Abdomen Ultrasound 01/15/2021 10:5 9 AM PARTNERSHIP MARKETING MANAGER Impressions 01/15/2021 11:00 AM PARTNERSHIP MARKETING MANAGER IMPRESSION: 1. ??No evidence of abdominal aortic aneurysm. Referred By: LORIE CASTANON Interpreted By: Moncho Cheng, 01/15/2021 10:59 AM Narrative 01/15/2021 11:00 AM PARTNERSHIP MARKETING MANAGER IMAGING STUDIES: ??US AORTA ? DATE: ??01/15/2021 8:27 AM COMPARISON STUDIES: No previous available. ?? CLINICAL HISTORY: ??AAA screening > 50 pack years tob ?.Additional history FINDINGS: ?? Real-time ultrasound examination of the aorta was performed by the failure analysis engineer using B-mode/arriaza-scale, Doppler spectral analysis and color [...] of the aorta was performed by the failure analysis engineer using B-mode/arriaza-scale, Doppler spectral analysis and color [...] screening documented in this encounter Care Teams Biofuels Technology Development Manager Relationship Specialty Start Date End Date Lorie Castanon MD PCP - General INTERNAL MEDICINE 01/15/20 02/09/23 documented as of this encounter
--- OUTSIDE RECORDS SUMMARY | 2024-11-02 09:19 | XMS_ITS | Encounter Summary ---
Author Organization [facility] Address [address] [place] [address]. [place], [place] [address] [place] [address] Care Team Providers Care Die Cast Supervisor Name Role Phone Lorie Castaonn MD Primary Care Provider [phone] Reason for Visit * Reason Comments Follow Up Routine, 6 month fol low up. having some issues with frequent urination at hs. states he has noticed it has gotten worse in the last month or so. Encounter Details Date Type Department Care Team (Late st Contact Info) Description 07/21/2020 11:00 AM CDT Office Visit [facility] Family & Internal Medicine [address] [address] [place] Castanon [place] [id number] [place] [address] Follow Up (Routine, 6 month follow [...] on file Legal Sex Male 9:58 PM ELECTRONICS SPECIALIST Gender Identity Not on file Sexual [...] 2013 ??? HERNIA REPAIR Right [facility] ??? HERNIA REPAIR Left [facility] ??? NECK/CHEST PROCEDURE UNLISTED Right [facility], re-built right side of neck. ??? TOTAL KNEE ARTHROPLASTY Bilateral ZANA [facility] KR[facility] Social History Socioeconomic History ??? [...] file Gets together: Not on file Attends church service: Not on file Active member of [...] & Internal Medicine [facility] [address] [place] [address] [place] [address] [place] [address] 10/22/2025 9:15 AM ELECTRONICS SPECIALIST Office Visit [facility] [address] [address] Mily Gan MD Three [address] [address] documented as of this encounter Procedures Procedure Name Priority Date/Time Associated Diagnosis Comments URINALYSIS AUTO DIP Routine 07/21/2020 Frequent urination Frequency of urination documented in this encounter Results * HEPATITIS C ANTIBODY (01/06/2021 7:11 AM ELECTRONICS SPECIALIST) [facility] HEPATITIS C AB NON-REACTI VE NON-REACTI VE 01/06/2021 3:24 PM ELECTRONICS SPECIALIST [facility] 01/06/2021 7:11 AM ELECTRONICS SPECIALIST us Lorie Castanon MD LABORATORY Final Result [facility] [address] [place] [address], [place] [phone] * (ABNORMAL) CBC W/DIFF AUTOMATED (01/06/2021 7:11 AM ELECTRONICS SPECIALIST) [facility] WBC 5.2 4.4 - 11.0 x10'3/uL 01/06/2021 7:29 AM [facility] RBC 4.49(L) 4.50 - 5.90 x10'6/uL 01/06/2021 7:29 AM [facility] HGB 14.5 14.0 - 17.5 G/DL 01/06/2021 7:29 AM [facility] HCT 42.5 41.5 - 50.4 % 01/06/2021 7:29 AM [facility] MCV 94.7 80.0 - 96.0 FL 01/06/2021 7:29 AM [facility] MCH 32.3(H) 26.5 - 31.4 PG 01/06/2021 7:29 AM [facility] MCHC 34.1 31.9 - 34.8 G/DL 01/06/2021 7:29 AM [facility] RDW 12.7 12.3 - 14.3 % 01/06/2021 7:29 AM [facility] PLT 257 151 - 353 x10'3/uL 01/06/2021 7:29 AM [facility] MPV 10.5 9.7 - 11.9 FL 01/06/2021 7:29 AM [facility] RBC MORPHOLOGY NORMAL 01/06/2021 7:29 AM [facility] PLT MORPH. NORMAL 01/06/2021 7:29 AM [facility] WBC MORPHOLOGY NORMAL 01/06/2021 7:29 AM [facility] LYMPHOCYTES % 34.4 15.8 - 45.0 % 01/06/2021 7:29 AM [facility] NEUTROPHILS % 52.8 42.1 - 71.9 % 01/06/2021 7:29 AM [facility] MONOCYTES % 9.6 5.7 - 12.5 % 01/06/2021 7:29 AM [facility] EOSINOPHILS 1.7 0.0 - 5.6 % 01/06/2021 7:29 AM [facility] BASOPHILS 1.3 0.0 - 1.3 % 01/06/2021 7:29 AM [facility] ABS. NEUTROPHILS TOTAL 2.74 1.40 - 6.00 x10'3/uL 01/06/2021 7:29 AM [facility] IMMATURE GRANS % 0.2 0.0 - 0.5 % 01/06/2021 7:29 AM [facility] ABS. LYMPHOCYTES 1.79 0.80 - 4.70 x10'3/uL 01/06/2021 7:29 AM [facility] 01/06/2021 7:11 AM ELECTRONICS SPECIALIST Lorie Castanon MD LABORATORY Final Result [facility] [address] [place] [address], [place] [phone] * ALT/SGPT (01/06/2021 7:11 AM ELECTRONICS SPECIALIST) ALT 25 16 - 60 U/L 01/06/2021 7:43 AM ELECTRONICS SPECIALIST [facility] 01/06/2021 7:11 AM ELECTRONICS SPECIALIST us Lorie Castanon MD LABORATORY Final Result Performing Organization Address City/[facility]/ZIP Co de Phone Number [facility] [address] [place] [address], [place] [phone] * (ABNORMAL) LIPID PANEL (01/06/2021 7:11 AM ELECTRONICS SPECIALIST) [facility] CHOLESTEROL 200(H) <200.0 MG/DL 01/06/2021 7:43 AM [facility] TRIGLYCERIDES 79 <150 MG/DL 01/06/2021 7:43 AM [facility] HDL 51 >40.0 MG/DL 01/06/2021 7:43 AM [facility] LDL (CALCULATED) 133(H) <100 MG/DL 01/06/2021 7:43 AM [facility] NON HDL CHOLESTEROL 149(H) <130 MG/DL 01/06/2021 7:43 AM [facility] CHOL/HDL RATIO 3.9 0.0 - 4.5 01/06/2021 7:43 AM [facility] VLDL CALCULATION 16 5 - 55 MG/DL 01/06/2021 7:43 AM [facility] LIPID INTERPRETATION 01/06/2021 7:43 AM [facility] Comment: NIH [...] ?LDL ? >=160 ?>=130 01/06/2021 7:11 AM ELECTRONICS SPECIALIST Lorie Castanon MD LABORATORY Final Result [facility] [address] [place] [address], * URINALYSIS AUTO DIP (07/21/2020) COLOR (U) YELLOW [facility] ([address]), [facility] CLE[facility] [address] ([address]), [facility] GLUCOSE (U) NEGATIVE NEGATIVE MG/DL [address] ([address]), [facility] BILIRUBIN (U) NEGATIVE NEGATIVE [address] ([address]), [facility] KETONES MG/DL (U) NEGATIVE NEGATIVE MG/DL [facility] ([address]), [facility] SPE[facility]IFIC GRAVITY (U) >=1.035 1.001 - 1.[address] ([address]), [facility] BLOOD (U[facility] NEGATIVE NEGATIVE [address] ([address]), [facility] U PH 5.0 5.0 - 9.[address] ([address]), [facility] PROTEIN (U) NEGATIVE NEGATIVE mg/dL [address] ([address]), [facility] UROBILINOGEN 0.2 0.2 - 1.0 EU/dL = mg/dL [address] ([address]), [facility] NITRITES NEGATIVE NEGATIVE MG/DL [address] ([address]), [facility] LEUKOCYTES (U) NEGATIVE NEGATIVE [address] ([address]), [facility] URINE SPECIMEN OBTAINED BY CLEAN CATCH PROCEDURE / Unknown 07/21/2020 us Lorie Castanon MD URINE ORDERABLES Final Resul t -[address] ([address]), [facility] [address] [place] [address], documented in this encounter Visit Diagnoses Diagnosis [...] diseases documented in this encounter Care Teams Die Cast Supervisor Relationship Specialty Start Date End Date Lorie Castanon MD PCP - General INTERNAL MEDICINE 01/15/20 02/09/23 documented as of this encounter
--- OUTSIDE RECORDS SUMMARY | 2024-11-02 09:19 | XMS_ITS | Encounter Summary ---
Author Organization [facility] Address [address] [place] [address]. [place], [place] [address] [place] [address] Care Team Providers Care Drum Stenciler Name Role Phone Lorie Chan MD Primary Care Provider [phone] Encounter Details Date Type Department Care Team (Latest Contact Info) Description 01/06/2021 6:55 AM STRUCTURAL ARCHITECT - 01/06/2021 11:59 PM STRUCTURAL ARCHITECT Hospital Encounter [facility] [address] [place] [address] [place] [address] [place], [place] [phone] Discharge Disposition: Home or Self Care (Routine [...] file Legal Sex Male 9:58 PM STRUCTURAL ARCHITECT Gender Identity Not on file Sexual Orientation Not on file COVID-19 Exposure Response Date Recorded In the last month, have you been in contact with someone who was confirmed or suspected to have Coronavirus / COVID-19? No / Unsure 01/06/2021 6:54 AM STRUCTURAL ARCHITECT documented as of this encounter Medications at [...] [facility] [address] [place] [address] [place] [address] [place] [address] 10/22/2025 9:15 AM STRUCTURAL ARCHITECT [facility] [address] [place] [address] Mily Gan MD [facility] [address] [phone] documented as of this encounter Procedures Procedure Name Priority Date/Time Associated Diagnosis Comments LIPID PANEL Routine 01/06/2021 7:11 AM STRUCTURAL ARCHITECT Mixed hyperlipidemia HEPATITIS C ANTIBODY Routine 01/06/2021 7:11 AM STRUCTURAL ARCHITECT Need for hepatitis C screening test CBC W/DIFF AUTOMATED Routine 01/06/2021 7:11 AM STRUCTURAL ARCHITECT Mixed hyperlipidemia ALT/SGPT Routine 01/06/2021 7:11 AM STRUCTURAL ARCHITECT Mixed hyperlipidemia documented in this encounter Results * HEPATITIS C ANTIBODY (01/06/2021 7:11 AM STRUCTURAL ARCHITECT) Pathologist [facility] HEPATITIS C AB NON-REACTI VE NON-REACTI VE 01/06/2021 3:[address] [facility] 01/06/2021 7:11 AM STRUCTURAL ARCHITECT us Lorie Chan MD LABORATORY Final Result [facility] [address] [place] [address], [place] [phone] * (ABNORMAL) CBC W/DIFF AUTOMATED (01/06/2021 7:11 AM STRUCTURAL ARCHITECT) Pathologist [facility] WBC 5.2 4.4 - 11.0 x10'3/uL 01/06/2021 7:29 AM STRUCTURAL ARCHITECT [facility] RBC 4.49(L) 4.50 - 5.90 x10'6/uL 01/06/2021 7:29 AM STRUCTURAL ARCHITECT [facility] HGB 14.5 14.0 - 17.5 G/DL 01/06/2021 7:29 AM STRUCTURAL ARCHITECT [facility] HCT 42.5 41.5 - 50.4 % 01/06/2021 7:29 AM [facility] MCV 94.7 80.0 - 96.0 FL 01/06/2021 7:29 AM [facility] MCH 32.3(H) 26.5 - 31.4 PG 01/06/2021 7:29 AM [facility] MCHC 34.1 31.9 - 34.8 G/DL 01/06/2021 7:29 AM [facility] RDW 12.7 12.3 - 14.3 % 01/06/2021 7:29 AM [facility] PLT 257 151 - 353 x10'3/uL 01/06/2021 7:29 AM [facility] MPV 10.5 9.7 - 11.9 FL 01/06/2021 7:29 AM [facility] RBC MORPHOLOGY NORMAL 01/06/2021 7:29 AM [facility] PLT MORPH. NORMAL 01/06/2021 7:29 AM [facility] WBC MORPHOLOGY NORMAL 01/06/2021 7:29 AM [facility] LYMPHOCYTES % 34.4 15.8 - 45.0 % 01/06/2021 7:29 AM [facility] NEUTROPHILS % 52.8 42.1 - 71.9 % 01/06/2021 7:29 AM [facility] MONOCYTES % 9.6 5.7 - 12.5 % 01/06/2021 7:29 AM [facility] EOSINOPHILS 1.7 0.0 - 5.6 % 01/06/2021 7:29 AM [facility] BASOPHILS 1.3 0.0 - 1.3 % 01/06/2021 7:29 AM [facility] ABS. NEUTROPHILS TOTAL 2.74 1.40 - 6.00 x10'3/uL 01/06/2021 7:29 AM [facility] IMMATURE GRANS % 0.2 0.0 - 0.5 % 01/06/2021 7:29 AM [facility] ABS. LYMPHOCYTES 1.79 0.80 - 4.70 x10'3/uL 01/06/2021 7:29 AM [facility] 01/06/2021 7:11 AM STRUCTURAL ARCHITECT us Lorie Chan MD LABORATORY Final Result [facility] [address] [place] [address], [place] [phone] * ALT/SGPT (01/06/2021 7:11 AM STRUCTURAL ARCHITECT) ALT 25 16 - 60 U/L 01/06/2021 7:43 AM [facility] 01/06/2021 7:11 AM STRUCTURAL ARCHITECT us Lorie Chan MD LABORATORY Final Result Performing Organization Address City/[facility]/ZIP Co de Phone Number [facility] [address] [place] [address], [place] [phone] * (ABNORMAL) LIPID PANEL (01/06/2021 7:11 AM STRUCTURAL ARCHITECT) CHOLESTEROL 200(H) <200.0 MG/DL 01/06/2021 7:43 AM [facility] TRIGLYCERIDES 79 <150 MG/DL 01/06/2021 7:43 AM [facility] HDL 51 >40.0 MG/DL 01/06/2021 7:43 AM STRUCTURAL ARCHITECT [facility] LDL (CALCULATED) 133(H) <100 MG/DL 01/06/2021 7:43 AM [facility] NON HDL CHOLESTEROL 149(H) <130 MG/DL 01/06/2021 7:43 AM [facility] CHOL/HDL RATIO 3.9 0.0 - 4.5 01/06/2021 7:43 AM [facility] VLDL CALCULATION 16 5 - 55 MG/DL 01/06/2021 7:43 AM [facility] LIPID INTERPRETATION 01/06/2021 7:43 AM [facility] Comment: NIH CONCENSUS REPORT RECOMMENDATIONS: [...] ?LDL ? >=160 ?>=130 01/06/2021 7:11 AM STRUCTURAL ARCHITECT Lorie Chan MD LABORATORY Final Result Performing Organization Address City/State/[facility] Co de Phone Number [facility] [address] [place] [address], documented in this encounter Visit Diagnoses Diagnosis Mixed hyperlipidemia Need for hepatitis C screening test Special screening examination for other specified viral diseases documented in this encounter Care Teams Drum Stenciler Relationship Specialty Start Date End Date Lorie Chan MD PCP - General INTERNAL MEDICINE 01/15/20 02/09/23 documented as of this encounter
--- OUTSIDE RECORDS SUMMARY | 2024-11-02 09:19 | XMS_ITS | Encounter Summary ---
Author Organization [facility] Address [address] [place] [address]. [place] [address] [place] [address] Care Team Providers Care Pharmacy Cashier Name Role Phone Lorie Chan MD Primary Care Provider [phone] Reason for Visit * Auth/Cert Specialty Diagnoses / Procedures Referred By Shelby jama Referred To Contact Diagnoses Pharyngoesophageal dysphagia Dysphagia Procedures UPPER GI ENDOSCOPY,DIAGNOSIS EGD Referral ID Status Reason Start Date Expiration Date Visits Re quested Visits Authorized [id number] 1 1 Encounter Details Date Type Department Care Team (Latest Contact Info) Description 03/10/2021 6:55 AM CDT - 03/10/2021 9:57 AM CDT Hospital Encounter [facility] [address] [place] [address] Jenni Randolph MD [address] [place] [phone] Discharge Disposition: Home or Self Care (Routine [...] on file Legal Sex Male 9:58 PM VARNISHER PLASTICOATER Gender Identity Not on file Sexual Orientation [...] Everywhere. * Upper GI Endoscopy Discharge Instructions ([facility]) * Esophageal Stricture Discharge Instructions ([facility]) * Acid Reflux and GERD in Adults Discharge Instructions ([facility]) * Hiatal Hernia Discharge Instructions ([facility]) documented in this encounter Medications at Time [...] stricture biopsy is benign * MICHAEL Lovett Body And Fender Mechanic Apprentice - 03/10/2021 9:57 AM CDT Anesthesia Record Closure: As a Chart Correction Body And Fender Mechanic Apprentice, I closed the Anesthesia Record due to ageof the record. All required documentation was previously completed and signed by VARNISHER PLASTICOATER. ISHER PLASTICOATER documented in this encounter H&P Notes * [...] during recuperation were discussed with the patient/family/personal outside sales representative insurance. Reasonable alternatives to the patient's proposed procedure/surgery including benefits, risks, and side effects related to the alternatives and the risks related to not receiving the proposed care were also discussed with the patient/family/personal outside sales representative insurance. Questions were answered and the patient/family/personal outside sales representative insurance verbalized understanding and desires to proceed. Source [...] COLONOSCOPY N/A 2013 ??? HERNIA REPAIR Right [facility] ??? HERNIA REPAIR Left [facility] ??? NECK/CHEST PROCEDURE UNLISTED Right [facility], re-built right side of neck. ??? TOTAL KNEE ARTHROPLASTY Bilateral ZANA Partial KR, done @ [facility] Social History: Social History Socioeconomic History [...] Pak RN Scrub Person 1: Savannah Brush, FISH SEINER Anesthesia: Monitor Anesthesia Care VARNISHER PLASTICOATER: Meredith Villagran CRNA Pre-Op Diagnosis: Dysphagia Post-Op [...] looked normal and scope withdrawn. A 48 Korean Guevara dilator was then lubricated inserted for single pass which was well-tolerated without significant resistance or heme. Findings: GE junction with moderate stricture was biopsied and dilated with 48 Korean Guevara. Small hiatal hernia. Rest examination was [...] [facility] Medicine - [place] [address] [place] [address] [place] [address] [place] [address] 10/22/2025 9:15 AM VARNISHER PLASTICOATER Office Visit [facility] [address] Mily Gan MD [address] [address] documented as of this encounter Procedures Procedure Name Priority Date/Time Associated Diagnosis Comments PATHOLOGY Routine 03/10/2021 9:02 AM CDT UPPER GI ENDOSCOPY,DIAGNOS IS 03/10/2021 8:55 AM CDT Pharyngoesophageal dysphagia Special Needs 0700 documented in this encounter Results * Pathology (03/10/2021 9:02 AM CDT) Tissue specimen (specimen) GASTRIC BIOPSY SPECIMEN / Unknown 03/10/2021 9:02 AM CDT Comment:dysphagia Narrative [facility] - 03/15/2021 2:37 PM CDT [...] PAS stain will be performed. (CPT code: ??08693, 96672, 54987) Site: ??[facility] ([facility]). D: ??03/10/2021 03:10 PM #[id number] T: ??03/11/2021 08:52 AM /NTS [id number] PATHOLOGIC [...] or dysplasia present. D: ??03/15/2021 10:55 AM #[id number] T: ??03/15/2021 11:16 AM /NTS Jenni Randolph MD PATHOLOGY/CYTOLOGY ORDERABLES Fi nal Result [facility] [address] [place] [address], documented in this encounter Visit Diagnoses Diagnosis [...] RN) documented in this encounter Care Teams Pharmacy Cashier Relationship Specialty Start Date End Date Lorie Chan MD PCP - General INTERNAL MEDICINE 01/15/20 02/09/23 documented as of this encounter
--- OUTSIDE RECORDS SUMMARY | 2024-11-02 09:19 | XMS_ITS | Encounter Summary ---
Author Organization [facility] Address [address] [place] [address]. [place] [address] [place] [address] Care Team Providers Care Environmental Science Professor Name Role Phone Lorie Chan MD Primary Care Provider [phone] Moraima Toledo RN Unavailable [phone] Reason for Visit * Reason Onset Date Comments Advise 03/22/2021 Encounter Details Date Type Department Care Team (Late st Contact Info) Description 03/22/2021 Telephone [facility] Home Care [facility] [address] [facility] [address] [place] [address] [place] [address] [place] [address] Advise Social History Tobacco Use [...] on file Legal Sex Male 9:58 PM BORDEREAU CLERK Gender Identity Not on file Sexual [...] follow for home care? Thank you Radha [facility] Homecare documented in this encounter Plan of Treatment Upcoming Encounters Date Type Department Care Team (Late st Contact Info) Description 01/27/2025 7:00 AM CDT Office Visit [facility] Medical Group Family & Internal Medicine [facility] [address] [place] [address] [place] [address] [place], [place] [phone] 10/22/2025 9:15 AM BORDEREAU CLERK Office Visit [facility] [address] [address] Mily Gan MD [address] [place], [place] [id number] documented as of this encounter Goals Goal Patient Goal Type Associated Problems Recent Progress Patient-Stated? Author Establish Plan for Symptom Monitoring General No Jesi Mixon i RN Monitor - demonstrates appropriate technique of care of indwelling urinary catheter and new ostomy General No Jesi Cochran RN documented as of this encounter Visit Diagnoses Not on filedocumented in this encounter Care Teams Environmental Science Professor Relationship Specialty Start Date End Date Lorie Chan MD PCP - General INTERNAL MEDICINE 01/15/20 02/09/23 Moraima Toledo, RN [address] [place] [address] Hide Cleaner (Ambulatory) REGISTERED NURSE 03/19/21 documented as of this encounter
--- OUTSIDE RECORDS SUMMARY | 2024-11-02 09:19 | XMS_ITS | Encounter Summary ---
Author Organization [facility] Address [address] [place] [address]. [place], [place] [address] [place] [address] Care Team Providers Care Accounting Director Name Role Phone Lorie Chan MD Primary Care Provider [phone] Encounter Details Date Type Department Care Team (Late Contact Info) Description 07/21/2020 Orders Only [facility] Family & Internal Medicine [address] [address] Zhanna Dowd MA Social History [...] file Legal Sex Male 9:58 PM MARINE FIREMAN Gender Identity Not on file Sexual Orientation [...] Description 01/27/2025 7:00 AM CDT Office Visit [facility] Family & Internal Medicine [address] [address] [place] [address] [place] [address] 10/22/2025 9:15 AM MARINE FIREMAN Office Visit [facility] [address] [place] [address] Mily Gan MD [facility] [address] [place] [address] documented as of this encounter Visit Diagnoses Not on filedocumented in this encounter Care Teams Accounting Director Relationship Specialty Start Date End Date Lorie Chan MD PCP - General INTERNAL MEDICINE 01/15/20 02/09/23 documented as of this encounter
--- OUTSIDE RECORDS SUMMARY | 2024-11-02 09:19 | XMS_ITS | Encounter Summary ---
Author Organization [facility] Address [address] [place] [address]. [place], [place] [address] [place] [address] Care Team Providers Care Back Tufter Name Role Phone Lorie Chan MD Primary Care Provider [phone] Encounter Details Date Type Department Care Team (Late st Contact Info) Description 01/14/2021 3:35 PM REGULATORY COMPLIANCE COORDINATOR Flu/Imm Clinic [facility] Medical Group Multispecialty Care - [address] [place] [address] Beckie Sandra, INSURANCE INVESTIGATOR Social History Tobacco Use Types Packs/Day Years [...] on file Legal Sex Male 9:58 PM REGULATORY COMPLIANCE COORDINATOR Gender Identity Not on file Sexual Orientation Not on file COVID-19 Exposure Response Date Recorded In the last month, have you been in contact with someone who was confirmed or suspected to have Coronavirus / COVID-19? No / Unsure 01/14/2021 3:20 PM REGULATORY COMPLIANCE COORDINATOR documented as of this encounter Plan of Treatment Upcoming Encounters Date Type Department Care Team (Late st Contact Info) Description 01/27/2025 7:00 AM CDT Office Visit [facility] Medical Group Family & Internal Medicine [facility] [address] [place] [address] [place] [address] [place] [address] 10/22/2025 9:15 AM REGULATORY COMPLIANCE COORDINATOR Office Visit [facility] [address] [address] Mily Gan MD [address] [address] documented as of this encounter Visit Diagnoses Diagnosis Need for prophylactic vaccination against viral disease- Primary Need for prophylactic vaccination and inoculation against other viral diseases documented in this encounter Care Teams Back Tufter Relationship Specialty Start Date End Date Lorie Chan MD PCP - General INTERNAL MEDICINE 01/15/20 02/09/23 documented as of this encounter
--- OUTSIDE RECORDS SUMMARY | 2024-11-02 09:19 | XMS_ITS | Encounter Summary ---
Author Organization [facility] Address [address] [place] [address]. [place], [place] [address] [place] [address] Care Team Providers Care Specialist Employee Labor Relations Name Role Phone Lorie Chan MD Primary Care Provider [phone] Encounter Details Date Type Department Care Team [...] on file Legal Sex Male 9:58 PM TRAINING AND DEVELOPMENT PROFESSIONAL Gender Identity Not on file Sexual [...] Medical Group Family & Internal Medicine - [place] [address] [place] [address] [place] [address] [place], [place] [phone] 10/22/2025 9:15 AM TRAINING AND DEVELOPMENT PROFESSIONAL [facility] [address] [place] [address] Mily Gan MD [address] [address] documented as of this encounter Visit Diagnoses Not on filedocumented in this encounter Care Teams Specialist Employee Labor Relations Relationship Specialty Start Date End Date Lorie Chan MD PCP - General INTERNAL MEDICINE 01/15/20 02/09/23 documented as of this encounter
--- OUTSIDE RECORDS SUMMARY | 2024-11-02 09:19 | XMS_ITS | Encounter Summary ---
Author Organization [facility] Address [address] [place] [address]. [place], [place] [address] [place] [address] Care Team Providers Care Rope Silica Machine Operator Name Role Phone Lorie Chan MD Primary Care Provider [phone] Encounter Details Date Type Department Care Team [...] on file Legal Sex Male 9:58 PM LEADER TIER Gender Identity Not on file Sexual Orientation [...] Family & Internal Medicine [facility] [address] [place] [address] [place] [address] [place], [place] [phone] 10/22/2025 9:15 AM LEADER TIER Office Visit [facility] [address] Mily Gan MD [address] [address] documented as of this encounter Visit Diagnoses Not on filedocumented in this encounter Care Teams Rope Silica Machine Operator Relationship Specialty Start Date End Date Lorie Chan MD PCP - General INTERNAL MEDICINE 01/15/20 02/09/23 documented as of this encounter
--- OUTSIDE RECORDS SUMMARY | 2024-11-02 09:19 | XMS_ITS | Encounter Summary ---
Author Organization [facility] Address [address] [place] [address]. [place], [place] [address] [place] [address] Care Team Providers Care Station Cleaning Porter Name Role Phone Unavailable Primary Care Provider Unavailabl e Encounter Details Date Type Department Care Team (Latest Contact Info) Description 01/01/2020 Scan HEALTH INFO [facility] Scanned, Documents Social History Tobacco Use Types Packs/Day Years Used Date Smoking Tobacco: Never Assessed Sex and Gender Information Value Date Recorded Sex Assigned at Not on file Legal Sex Male 9:58 PM RESIDENT CARE MANAGER RN Gender Identity Not on file Sexual Orientation Not on file documented as of this encounter Plan of Treatment Upcoming Encounters Date Type Department Care Team (Late st Contact Info) Description 01/27/2025 7:00 AM CDT Office Visit [facility] Medical Group Family & Internal Medicine - [place] [address] [place] [address] [place] [address] [place] [address] 10/22/2025 9:15 AM RESIDENT CARE MANAGER RN Office Visit [facility] [address] Mily Gan MD [address] [place] [address] documented as of this encounter Visit Diagnoses Not on filedocumented in this encounter
--- OUTSIDE RECORDS SUMMARY | 2024-11-02 09:19 | XMS_ITS | Encounter Summary ---
Author Organization [facility] Address [address] [place] [address]. [place] [address] [place] [address] Care Team Providers Care Power Nut Runner Operator Name Role Phone Lorie Castanon MD Primary Care Provider Reason for Visit * Reason Onset Date Comments Medication 11/10/2020 Encounter Details Date Type Department Care Team (Late st Contact Info) Description 11/10/2020 Telephone [facility] Medical Group Family & Internal Medicine [facility] [address] [place] [address] L[place] Castanon [place] [address] [place] [address] Medication Social History Tobacco Use Types Packs/Day Years Used Date Smoking Tobacco: Every Day Cigarettes Smokeless Tobacco: Never Alcohol Use Standard Drinks/Week Comments Yes 0 (1 standard drink = 0.6 oz pur e alcohol) Occasionally PHQ-2 Answer Date Recorded PHQ-2 Score 0 01/15/2020 Sex and Gender Information Value Date Recorded Sex Assigned at Not on file Legal Sex Male 9:58 PM ENERGY CONSERVATION ENGINEER Gender Identity Not on file Sexual Orientation Not on file documented as of this encounter Progress Notes * Xi Page RN - 11/10/2020 9:54 AM CST script sent as requested GY CONSERVATION ENGINEER * Marilu Epstein LPN - 11/10/2020 9:33 AM CST Medication and strength: oxybutynin 5 mg 07/21/2020 Dr [facility]: [facility] Call back #: [phone] Last office visit at this office: Last visit with LORIE CASTANON in INTERNAL MEDICINE was on: 07/21/2020 in [facility] Future appointment scheduled: Future Appointments Date Time Provider Department Center 01[facility]00 [facility] 01/18/2021 8:20 AM Lorie Castanon MD [facility]IGH GY CONSERVATION ENGINEER documented in this encounter Plan of Treatment Upcoming Encounters Date Type Department Care Team (Late st Contact Info) Description 01/27/2025 7:00 AM CDT Office Visit [facility] Medical Group Family & Internal Medicine [facility] [address] [place] [address] [place] [address] [place], [place] [phone] 10/22/2025 9:15 AM ENERGY CONSERVATION ENGINEER Office Visit [facility] [address] [address] Mily Gan MD [address] [address] documented as of this encounter Visit Diagnoses Diagnosis Frequent urination Urinary frequency documented in this encounter Care Teams Power Nut Runner Operator Relationship Specialty Start Date End Date Lorie Castanon MD PCP - General INTERNAL MEDICINE 01/15/20 02/09/23 documented as of this encounter
--- OUTSIDE RECORDS SUMMARY | 2024-11-02 09:19 | XMS_ITS | Encounter Summary ---
Author Organization [facility] Address [address] [place] [address]. [place], [place] [address] [place] [address] Care Team Providers Care Colorist Formulator Name Role Phone Lorie Chan MD Primary Care Provider [phone] Encounter Details Date Type Department Care Team [...] on file Legal Sex Male 9:58 PM FWS FACULTY ASSISTANT Gender Identity Not on file Sexual [...] Medical Group Family & Internal Medicine - [place] [address] [place] [address] [place] [address] [place], [place] [phone] 10/22/2025 9:15 AM FWS FACULTY ASSISTANT Office Visit [facility] [address] [place] [address] Mily Gan MD [address] [address] documented as of this encounter Visit Diagnoses Not on filedocumented in this encounter Additional Health Concerns Infection Onset Date Last Indicated Resolved Time COVID-19 Rule Out 03/07/2021 03/07/2021 03/08/2021 2:56 PM CDT documented as of this encounter Care Teams Colorist Formulator Relationship Specialty Start Date End Date Lorie Chan MD PCP - General INTERNAL MEDICINE 01/15/20 02/09/23 documented as of this encounter
--- OUTSIDE RECORDS SUMMARY | 2024-11-02 09:19 | XMS_ITS | Encounter Summary ---
Author Organization [facility] Address [address] [place] [address]. [place], [place] [address] [place] [address] Care Team Providers Care Date Pitter Name Role Phone Lorie Chan MD Primary Care Provider [phone] Reason for Visit * Reason Onset Date Comments Cough 02/05/2020 pt complains of 1 week hx of cough productive of yellow phlemn in am then clear rest of the day, sore throat, fatigue, headache, head congestion, headache, AM yellow nasal discharge then clear, sore throat, smokes 1/2 ppd, Encounter Details Date Type Department Care Team (Late st Contact Info) Description 02/05/2020 Telephone [facility] Family & Internal Medicine [facility] [address] [place] [address] Lorie Chan MD [address] [place] [address] Cough (pt complains of 1 week [...] on file Legal Sex Male 9:58 PM GEOPHYSICAL PROSPECTING SURVEYOR Gender Identity Not on file Sexual Orientation [...] from previous cut finger. Should he take? [phone] please advise. Uses [facility] Pt instructions: [...] [facility] Family [facility] Internal Medicine [address] [address] Ilir Nelson PA [address] [place] [address] 10/22/2025 9:15 AM GEOPHYSICAL PROSPECTING SURVEYOR Office Visit [facility] [address] [place] [address] Mily Gan MD [facility] [address] [place] [address] documented as of this encounter Visit Diagnoses Not on filedocumented in this encounter Care Teams Date Pitter Relationship Specialty Start Date End Date Lorie Chan MD PCP - General INTERNAL MEDICINE 01/15/20 02/09/23 documented as of this encounter
--- OUTSIDE RECORDS SUMMARY | 2024-11-02 09:19 | XMS_ITS | Encounter Summary ---
Author Organization [facility] Address [address] [place] [address]. [place], [place] [address] [place] [address] Care Team Providers Care Promotor Group Ticket Sales Name Role Phone Lorie Chan MD Primary Care Provider [phone] Encounter Details Date Type Department Care Team [...] on file Legal Sex Male 9:58 PM EPIC PRELUDE ANALYST Gender Identity Not on file Sexual [...] Group Family & Internal Medicine [place] [address] [place] [address] [place] [address] [place], [place] [phone] 10/22/2025 9:15 AM EPIC PRELUDE ANALYST [facility] [address] [place] [address] Mily Gan MD [address] [address] documented as of this encounter Visit Diagnoses Not on filedocumented in this encounter Care Teams Promotor Group Ticket Sales Relationship Specialty Start Date End Date Lorie Chan MD PCP - General INTERNAL MEDICINE 01/15/20 02/09/23 documented as of this encounter
--- OUTSIDE RECORDS SUMMARY | 2024-11-02 09:19 | XMS_ITS | Encounter Summary ---
Author Organization [facility] Address [address] [place] [address]. [place], [place] [address] [place] [address] Care Team Providers Care Mortising Machine Operator Name Role Phone Lorie Chan MD Primary Care Provider [phone] Moraima Toledo RN Unavailable [phone] Moraima Toledo RN Unavailable [phone] Candis Bee NP Primary Care Provider [phone] Ilir Nelson Primary Care Provider [phone] Encounter Details Date Type Department Care Team (Late st Contact Info) Description 03/01/2021 Prep for Procedure [facility] [address] [place] [address] Cody Randolph MD [address] [id number] Social History Tobacco Use Types Packs/Day Years [...] on file Legal Sex Male 9:58 PM RESHIPPING CLERK Gender Identity Not on file Sexual [...] [facility] Family [facility] [address] [place] [address] [place] [address] [place] [address] 10/22/2025 9:15 AM RESHIPPING CLERK Office Visit [facility] [address] Mily Gan MD [address] [phone] documented as of this encounter Results * PRE-SURGICAL/PRE-PROCEDURE CORONAVIRUS (COVID 19) (03/07/2021 8:12 AM CDT) CORONAVIRUS SARS COV 2 PCR (RESP) NOT DETECTED NOT DETECTED 03/08/2021 2:56 PM CDT [facility] Comment: A Not Detected (negative) test [...] providers and patients using the following websites: https://www.[employer]/home/Covid-19/HCP/QuestIVD/fact- sheet.html https://www.[employer]/home/Covid-19/Patients/ QuestIVD/fact-sheet.html This test has been authorized by the FDA under an Emergency Use Authorization (EUA) for use by authorized laboratories. Due to the current public health emergency, [facility] is receiving a high volume of samples [...] about COVID-19 can be found at the [facility] website: www.[employer]/Covid19. Test performed at [facility] [address] [place] [address] ??[id number] Director: MICHEL LEO DO,MPH FIRST TEST UNKNOWN 03/07/2021 8:04 AM T [facility] EMPLOYED IN HEALTHCARE NO 03/07/2021 8:04 AM CDT [facility] SYMPTOMATIC DEFINED BY CDC NO 03/07/2021 8:04 AM CDT [facility] DATE OF SYMPTOM ONSET UNKNOWN 03/07/2021 12:43 PM CDT [facility] HOSPITALIZATION STATUS NO 03/07/2021 8:04 AM CDT [facility] PATIENT IN ICU NO 03/07/2021 8:04 AM CDT [facility] RESIDENT OF CONGREGATE CARE NO 03/07/2021 8:04 AM CDT [facility] UNKNOWN 03/07/2021 12:43 PM CDT [facility] PATIENT'S RACE WHITE OR 03/07/2021 8:04 AM CDT [facility] ETHNICITY NONHISPANIC 03/07/2021 8:04 AM CDT [facility] SOURCE (QST) NASOPHARYNGEAL SWAB 03/07/2021 8:04 AM CDT [facility] NASOPHARYNGEAL SWAB / Unknown 03/07/2021 8:12 AM CDT us Cody Randolph MD MICROBIOLOGY - GENERAL ORDERABLE S Final Result Performing Organization Address City/State/[facility] Co de Phone Number [facility] [address] [place] [address], [place] [address], documented in this encounter Visit Diagnoses Diagnosis Preop testing- Primary Preoperative examination, unspecified documented in this encounter Additional Health Concerns Infection Onset Date Last Indicated Resolved Time COVID-19 Rule Out 03/07/2021 03/07/2021 03/08/2021 2:56 PM CDT documented as of this encounter Care Teams Mortising Machine Operator Relationship Specialty Start Date End Date Lorie Chan MD PCP - General INTERNAL MEDICINE 01/15/20 02/09/23 [place] [address] Tata Morejon, [address] [address] PCP - General Nurse Practitioner Family 02/10/23 01/05/24 [place] [address] [place] [address] PCP - General Physician [facility] 01/06/24 Moraima Toledo, RN [address] [place] [address] Infectious Diseases Physician (Ambulatory) REGISTERED NURSE 03/19/21 03/30/21 Moraima Toledo RN [address] [place] [address] Infectious Diseases Physician (Ambulatory) REGISTERED NURSE 09/23/21 10/18/21 documented as of this encounter
--- OUTSIDE RECORDS SUMMARY | 2024-11-02 09:19 | XMS_ITS | Encounter Summary ---
Author Organization [facility] Address [address] [place] [address]. [place], [place] [address] [place] [address] Care Team Providers Care Fitness Coordinator Name Role Phone Lorie Chan MD Primary Care Provider [phone] Reason for Referral * Imaging (Emergency) - Closed Specialty Diagnoses / Procedures Referred By Shelby t Referred To Contact RADIOLOGY Procedures CT ABD+PEL W IV CON ONLY Lauri Alanis MD,PHD [address] [place] [address] Phone: tel: fax: Referral ID Status Reason Start Date Expiration Date Visits Re quested Visits Authorized [id number] Closed 03/18/2021 04/18/2022 1 1 Reason for Visit * Reason Comments Abdominal Pain * Auth/Cert Specialty Diagnoses / Procedures Referred By Shelby t Referred To Contact Diagnoses Bowel perforation ([facility]) Bowel perforation (CMS/HCC) Referral ID Status Reason Start Date Expiration Date Visits Re quested Visits Authorized [id number] 1 1 Encounter Details Date Type Department Care Team (Late st Contact Info) Description 03/18/2021 9:46 AM CDT - 03/18/2021 12:59 PM CDT Emergency [facility] Emergency Room [id number] [place] [address] Lauri Alanis MD,PHD [address] [place], [place] [id number] Abdominal Pain Discharge Disposition: Transfer to Acute [...] on file Legal Sex Male 9:58 PM PATTERN MARKER Gender Identity Not on file [...] daily. 90 tablet 1 1 03/23/20 21 [facility] (OSTEO BI-FLEX JOINT SHIELD OR) [...] COLONOSCOPY N/A 2013 ??? HERNIA REPAIR Right [facility] ??? HERNIA REPAIR Left [facility] ??? NECK/CHEST PROCEDURE UNLISTED Right [facility], re-built right side of neck. ??? TOTAL KNEE ARTHROPLASTY Bilateral ZANA Partial KR, done @ [facility] ALL: Allergies Allergen Reactions ??? Morphine Itching MEDS: Current: ??? HYDROmorphone Current Facility-Administered Medications: ??? HYDROmorphone (DILAUDID) 1 MG/ML injection, , , , No current outpatient medications on file. Facility-Administered Medications Ordered in Other Encounters: ??? acetaminophen (TYLENOL) tablet 650 mg, 650 mg, Oral, Q4H PRN, Christopher Engele, LACE CUTTER ??? [START ON 03/19/2021] docusate sodium (COLACE) capsule 100 mg, 100 mg, Oral, BID, Christopher Engele, LACE CUTTER ??? [START ON 03/19/2021] heparin (porcine) injection 5,000 Units, 5,000 Units, Subcutaneous, 2 times per day AND [COMPLETED] Moderate Risk for VTE, , , Once, Christopher Engele, LACE CUTTER ??? HYDROmorphone (DILAUDID) injection 0.2 mg, 0.2 mg, Intravenous, Q2H PRN, Garcíaopher Engele, LACE CUTTER ??? HYDROmorphone (DILAUDID) injection 0.5 mg, 0.5 mg, Intravenous, Q2H PRN, Christopher Engele, LACE CUTTER ??? naLOXone (NARCAN) injection 0.4 mg, 0.4 mg, Intravenous, PRN, Christopher Engele, LACE CUTTER ??? ondansetron (ZOFRAN) injection 4 mg, 4 mg, Intravenous, Q8H PRN, Christopher Engele, LACE CUTTER ??? piperacillin-tazobactam (ZOSYN) 3.375 g in sodium chloride 0.9 % 50 mL IVPB, 3.375 g, Intravenous, Q8H, Garcíaopher Engele, LACE CUTTER ??? polyethylene glycol (GLYCOLAX) packet 17 g, 17 g, Oral, Daily PRN, Christopher Engele, LACE CUTTER ??? sodium chloride 0.9% infusion, , Intravenous, Continuous, Christopher Engele, LACE CUTTER Social History Socioeconomic History ??? Marital status: [...] Gatherings with Friends and Family: ??? Attends Tenriism Services: ??? Active Member of Clubs or [...] - 03/18/2021 12:42 PM CDT Spoke with clerical supervisor at [place] who transferred call to [facility]. Report given to GINA Gomes. Patientgoing to [...] by mouth daily. 01/12/21 Lorie Chan MD [facility] (OSTEO BI-FLEX JOINT SHIELD OR) [...] COLONOSCOPY N/A 2013 ??? HERNIA REPAIR Right [facility] ??? HERNIA REPAIR [facility] ??? NECK/CHEST PROCEDURE UNLISTED Right [facility], re-built right side of neck. ??? TOTAL KNEE ARTHROPLASTY Bilateral ZANA Partial KR, done @ [facility] FAMILY HISTORY: Family History Problem Relation Name [...] Range COLOR (U) YELLOW TRANSPARENCY HAZY Specific [employer] (U) 1.015 1.000 - 1.030 U PH [...] IV CON ONLY Final Result by User, [id number] (03/18 1208) Addendum 1 of 1 by User, [email or web address] (03/18 7889) ADDENDUM: I reviewed the findings with Dr. [...] discussed the patient with general surgery, Dr. Amador, who stated the patient's condition was surgical and requested that I have the anaesthesia staff evaluate the patient I discussed the patient with anaesthesia staff who agree to perform the patient's anaesthesia I discussed the patient with the admitting provider Dr. Amador then requested a transfer to [facility] due to improved surgical equipment andassistance being available at [facility]. I discussed the patient with the hospitalist here, Dr. Mustafa, who is also covering [facility] in [place] I reviewed old medical records, obtained from care everywhere, as well as internal past medical records I interpreted the patient's pulse oximeter at rest, which is 98% on room air, which is normal and determined that this patient is not hypoxic I interpreted the patient's cardiac cath technologist as showing a sinus rhythm and hemodynamic [...] of unknown etiology (Primary) Disposition: Transfer to [facility] at the request of the surgeon [...] & Internal Medicine [facility] [address] [place] [address] [place] [address] [place], [place] [phone] 10/22/2025 9:15 AM PATTERN MARKER Office Visit [facility] [address] Mily Gan MD [address] [phone] documented as of this encounter Procedures Procedure [...] - 2.0 MMOL/L 03/18/2021 12:16 PM CDT [facility] 03/18/2021 11:5 0 AM CDT us Lauri Alanis MD,PHD LABORATORY Final Resu lt [facility] [address] [place] [address], [place] [phone] * CULTURE, BACTERIA, BLOOD (03/18/2021 11:50 AM CDT) SPEC DESCRIPTION BLOOD 03/18/2021 11:36 AM CDT [facility] SPECIAL REQUESTS NO SPECIAL REQUEST 03/18/2021 11:36 AM CDT [facility] CULTURE RESULT NO GROWTH 5 DAYS 03/23/2021 10:15 AM CDT [facility] BLOOD SPECIMEN OBTAINED FOR BLOOD CULTURE / Unknown 03/18/2021 11:50 AM CDT 03/18/2021 11:59 AM CDT Lauri Alanis MD,PHD MICROBIOLOGY - GENERAL ORD ERABLES Final Result Performing Organization Address [facility] Co de Phone Number [facility] [address] [place] [address], [place] [phone] [facility] [address] [place] [address], [place] [phone] * CULTURE, BACTERIA, BLOOD (03/18/2021 11:40 AM CDT) SPEC DESCRIPTION BLOOD 03/18/2021 11:36 AM CDT [facility] SPECIAL REQUESTS NO SPECIAL REQUEST 03/18/2021 11:36 AM CDT [facility] CULTURE RESULT NO GROWTH 5 DAYS 03/23/2021 10:15 AM CDT [facility] BLOOD SPECIMEN OBTAINED FOR BLOOD CULTURE / Unknown 03/18/2021 11:40 AM CDT 03/18/2021 11:59 AM CDT Lauri Alanis MD,PHD MICROBIOLOGY - GENERAL ORD ERABLES Final Result Performing Organization Address [facility] Co de Phone Number [facility] [address] [place] [address], [place] [phone] [facility] [address] [place] [address], [place] [phone] * CT ABD+PEL W IV CON ONLY [...] with Lauri Alanis in the emergency department [id number] hours. Referred By: LAURI ALANIS Interpreted By: Norman Smallwood, 03/18/2021 11:08 AM us Lauri Alanis MD,PHD CT Edited Res ult - Final * ECG 12 lead (03/18/2021 10:08 AM CDT) 03/18/2021 10:0 8 AM CDT Narrative [facility] RAD - 03/18/2021 1:20 PM CDT ?[facility] ? Test Date: ?2021-03-18 Pat Name: ? MANDIE COTTER ? Department: ? Room: ? EXAM 1 Gender: ? Male ? Hat Steamer: ?? : ?1955 ? Requested By: LAURI ALANIS Order Number: [id number] ? Reading MD: ?? Deuce Chan ? Measurements Intervals ?[place] ? Rate: ? 80 ? P: ?0 CA: ? 140 ?QRS: ?9 QRSD: ? 96 ? T: ?62 QT: ? 360 ? QTc: ?416 ? Interpretive Statements SINUS RHYTHM NONSPECIFIC T-WAVE ABNORMALITY No previous ECG available for comparison Procedure Note Deuce Chan MD - 03/18/2021 [facility] Test Date: 2021-03-18 Pat Name: MANDIE COTTER Department: Room: EXAM 1 Gender: Male Hat Steamer: : 1955 Requested By: LAURI ALANIS Order Number: [id number] Reading MD: Deuce Chan Measurements Intervals [place] Rate: 80 P: 0 CA: 140 QRS: 9 QRSD: 96 T: 62 QT: 360 QTc: 416 Interpretive Statements SINUS RHYTHM NONSPECIFIC T-WAVE ABNORMALITY No previous ECG available for comparison us Lauri Alanis MD,PHD ECG ORDERABLES Final Resu lt [facility] ([facility] RAD * (ABNORMAL) URINALYSIS, AUTO, COMPLETE (03/18/2021 9:55 AM CDT) COLOR (U) YELLOW 03/18/2021 10:18 AM CDT [facility] TRANSPARENCY HAZY 03/18/2021 10:18 AM CDT [facility] SPECIFIC GRAVITY (U) 1.015 1.000 - 1.030 03/18/2021 10:18 AM CDT [facility] U PH 6.5 5.0 - 9.0 03/18/2021 10:18 AM CDT [facility] LEUKOCYTES (U) NEGATIVE NEGATIVE 03/18/2021 10:18 AM CDT [facility] NITRITES NEGATIVE NEGATIVE 03/18/2021 10:18 AM CDT [facility] PROTEIN (U) NEGATIVE NEGATIVE 03/18/2021 10:18 AM CDT [facility] URINE GLUCOSE NEGATIVE NEGATIVE 03/18/2021 10:18 AM CDT [facility] KETONES MG/DL (U) TRACE(A) NEGATIVE 03/18/2021 10:18 AM CDT [facility] BILIRUBIN (U) NEGATIVE NEGATIVE 03/18/2021 10:18 AM CDT [facility] BLOOD (U) NEGATIVE NEGATIVE 03/18/2021 10:18 AM CDT [facility] WBC/HPF NONE SEEN 0 - 5 /HPF 03/18/2021 10:18 AM CDT [facility] RBC/HPF NONE SEEN 0 - 5 /HPF 03/18/2021 10:18 AM CDT [facility] EPI/HPF FEW /HPF 03/18/2021 10:18 AM CDT [facility] CULTURE & SENSITIVITY INDICATED? CULTURE IS NOT INDICATED 03/18/2021 10:18 AM CDT [facility] CRYSTALS (U) FEW /HPF 03/18/2021 10:18 AM CDT [facility] Comment:AMORPHOUS MATERIAL URINE SPECIMEN OBTAINED BY CLEAN CATCH PROCEDURE / Unknown 03/18/2021 9:55 AM CDT us Lauri Alanis MD,PHD URINE ORDERABLES Final Res ult Performing Organization Address [facility] Co de Phone Number [facility] [address] [place] [address], [place] [phone] * (ABNORMAL) LIPASE (03/18/2021 9:50 AM CDT) LIPASE 72(L) 73 - 393 UNITS/L 03/18/2021 10:15 AM CDT [facility] 03/18/2021 9:50 AM CDT us Lauri Alanis MD,PHD LABORATORY Final Resu lt Performing Organization Address City/[facility]/ZIP Co de Phone Number [facility] [address] [place] [address], [place] [phone] * PHOSPHORUS, INORGANIC PHOSPHATE (03/18/2021 9:50 AM CDT) PHOSPHORUS 3.2 2.5 - 4.9 MG/DL 03/18/2021 10:15 AM CDT [facility] 03/18/2021 9:50 AM CDT Lauri Alanis MD,PHD LABORATORY Final Resu lt [facility] [address] [place] [address], [place] [phone] * MAGNESIUM (03/18/2021 9:50 AM CDT) MAGNESIUM 2.1 1.8 - 2.4 MG/DL 03/18/2021 10:15 AM CDT [facility] 03/18/2021 9:50 AM CDT Lauri Alanis MD,PHD LABORATORY Final Resu lt [facility] [address] [place] [address], [place] [phone] * (ABNORMAL) COMPREHENSIVE METABOLIC PANEL (03/18/2021 9:50 AM CDT) GLUCOSE 122(H) 70 - 99 MG/DL 03/18/2021 10:15 AM CDT [facility] BUN 19(H) 7 - 18 MG/DL 03/18/2021 10:15 AM CDT [facility] CREATININE S/P/B 0.85 0.7 - 1.3 MG/DL 03/18/2021 10:15 AM CDT [facility] SODIUM S/P/B 137 136 - 145 MMOL/L 03/18/2021 10:15 AM [facility] POTASSIUM S/P/B 4.0 3.5 - 5.1 MMOL/L 03/18/2021 10:15 AM [facility] CHLORIDE S/P/B 100 100 - 108 MMOL/L 03/18/2021 10:15 AM [facility] CO2 28.1 21 - 32 MMOL/L 03/18/2021 10:15 AM [facility] CALCIUM S/P/B 8.9 8.5 - 10.1 MG/DL 03/18/2021 10:15 AM [facility] BILIRUBIN TOTAL S/P/B 1.7(H) 0.2 - 1.2 MG/DL 03/18/2021 10:15 AM [facility] TOTAL PROTEIN S/P/B 8.4(H) 6.4 - 8.2 G/DL 03/18/2021 10:15 AM [facility] ALBUMIN S/P/B 4.3 3.4 - 5.0 G/DL 03/18/2021 10:15 AM [facility] AST 19 15 - 37 U/L 03/18/2021 10:15 AM [facility] ALT 35 16 - 60 U/L 03/18/2021 10:15 AM [facility] ALKALINE PHOSPHATASE S/P/B 50 50 - 136 U/L 03/18/2021 10:15 AM [facility] ANION GAP 8.9 5 - 15 MMOL/L 03/18/2021 10:15 AM [facility] BUN CREATININE RATIO 22.4 6 - 26 03/18/2021 10:15 AM [facility] A/G RATIO 1.0 1.0 - 2.0 RATIO 03/18/2021 10:15 AM CDT [facility] EGFR NON-AFR. AMER. >90 >90 ML/MIN/1.7 3 M2 03/18/2021 10:15 AM CDT [facility] EGFR AFR. AMER. >90 >90 ML/MIN/1.7 3 M2 03/18/2021 10:15 AM CDT [facility] Comment: NOTE: eGFR is not calculated for patients <18 years of age. This is an estimated GFR (CKD EPI) and should not be used for calculating drug doses. 03/18/2021 9:50 AM CDT us Lauri Alanis MD,PHD LABORATORY Final Resu lt [facility] [address] [place] [address], * (ABNORMAL) CBC W/DIFF AUTOMATED (03/18/2021 9:50 AM CDT) WBC 13.7(H) 4.4 - 11.0 x10'3/uL 03/18/2021 10:05 AM CDT [facility] RBC 4.81 4.50 - 5.90 x10'6/uL 03/18/2021 10:05 AM CDT [facility] HGB 15.7 14.0 - 17.5 G/DL 03/18/2021 10:05 AM CDT [facility] HCT 45.7 41.5 - 50.4 % 03/18/2021 10:05 AM CDT [facility] MCV 95.0 80.0 - 96.0 FL 03/18/2021 10:05 AM CDT [facility] MCH 32.6(H) 26.5 - 31.4 PG 03/18/2021 10:05 AM [facility] MCHC 34.4 31.9 - 34.8 G/DL 03/18/2021 10:05 AM [facility] RDW 12.8 12.3 - 14.3 % 03/18/2021 10:05 AM [facility] PLT 236 151 - 353 x10'3/uL 03/18/2021 10:05 AM [facility] MPV 10.9 9.7 - 11.9 FL 03/18/2021 10:05 AM [facility] RBC MORPHOLOGY NORMAL 03/18/2021 10:05 AM [facility] PLT MORPH. NORMAL 03/18/2021 10:05 AM [facility] WBC MORPHOLOGY NORMAL 03/18/2021 10:05 AM [facility] LYMPHOCYTES % 10.6(L) 15.8 - 45.0 % 03/18/2021 10:05 AM [facility] NEUTROPHILS % 83.5(H) 42.1 - 71.9 % 03/18/2021 10:05 AM [facility] MONOCYTES % 5.1(L) 5.7 - 12.5 % 03/18/2021 10:05 AM [facility] EOSINOPHILS 0.3 0.0 - 5.6 % 03/18/2021 10:05 AM [facility] BASOPHILS 0.2 0.0 - 1.3 % 03/18/2021 10:05 AM [facility] ABS. NEUTROPHILS TOTAL 11.39(H) 1.40 - 6.00 x10'3/uL 03/18/2021 10:05 AM [facility] IMMATURE GRANS % 0.3 0.0 - 0.5 % 03/18/2021 10:05 AM CDT [facility] ABS. LYMPHOCYTES 1.45 0.80 - 4.70 x10'3/uL 03/18/2021 10:05 AM CDT [facility] 03/18/2021 9:50 AM CDT us Lauri Alanis MD,PHD LABORATORY Final Resu lt [facility] [address] [place] [address], [place] [phone] documented in this encounter Visit Diagnoses Diagnosis [...] RTR) documented in this encounter Care Teams Fitness Coordinator Relationship Specialty Start Date End Date Lorie Chan MD PCP - General INTERNAL MEDICINE 01/15/20 02/09/23 documented as of this encounter
--- OUTSIDE RECORDS SUMMARY | 2024-11-02 09:19 | XMS_ITS | Encounter Summary ---
Author Organization [facility] Address [address] [place] [address]. [place], [place] [address] [place] [address] Care Team Providers Care Secretarial Teacher Name Role Phone Lorie Chan MD Primary Care Provider [phone] Encounter Details Date Type Department Care Team [...] on file Legal Sex Male 9:58 PM SCALE BALANCER Gender Identity Not on file Sexual Orientation Not on file COVID-19 Exposure Response Date Recorded In the last month, have you been in contact with someone who was confirmed or suspected to have Coronavirus / COVID-19? No / Unsure 01/14/2021 3:20 PM SCALE BALANCER documented as of this encounter Plan of Treatment Upcoming Encounters Date Type Department Care Team (Late st Contact Info) Description 01/27/2025 7:00 AM CDT Office Visit [facility] Family & Internal Medicine - [place] [address] [place] [address] [place] [address] [place] [address] 10/22/2025 9:15 AM SCALE BALANCER [facility] [address] [place] [address] Mily Gan MD [address] [address] documented as of this encounter Visit Diagnoses Not on filedocumented in this encounter Care Teams Secretarial Teacher Relationship Specialty Start Date End Date Lorie Chan MD PCP - General INTERNAL MEDICINE 01/15/20 02/09/23 documented as of this encounter
--- OUTSIDE RECORDS SUMMARY | 2024-11-02 09:19 | XMS_ITS | Encounter Summary ---
Author Organization [facility] Address [address] [place] [address]. [place] [address] [place] [address] Care Team Providers Care Fish Bait Picker Name Role Phone Lorie Chan MD Primary Care Provider [phone] Reason for Visit * Auth/Cert Specialty Diagnoses / Procedures Referred By Shelby jama Referred To Contact Diagnoses Perforated diverticulum Perforated diverticulum Procedures INP Referral ID Status Reason Start Date Expiration Date Visits Re quested Visits Authorized [id number] 1 1 Encounter Details Date Type Department Care Team (Late st Contact Info) Description 03/18/2021 2:36 PM CDT Anesthesia Event [facility] [address] [place] [address] David Ha CRNA [address] [place] [address] Jose Mejia MD 619 [facility] [address] [address] Anesthesia Record Procedure Summary Procedure Name Responsible Anesthesiologist Anesthesia Start Time Anesthesia Stop Time LAPAROSCOPY DIAGNOSTIC, open sigmoidectomy with repair of bladder WITH OSTOMY (Abdomen) David Ha CRNA 03/18/21 1436 03/18/21 1851 Events Date Time Event Comment 03/18/2021 1346 AN DRILL PRESS TENDER Prepped 1430 1436 An Start Patient ID [...] Placement Location: Lumbar; MRI Compatible: MRI UNSAFE ([id number]); Removal Date: 03/20/21; Removal Time: 1000 03/18/21 [...] file Legal Sex Male 9:58 PM SUPPORT ASSISTANT Gender Identity Not on file [...] Needle and Catheter: MRI Compatible: MRI UNSAFE ([id number]) Needle type: Tuohy Needle gauge: 17 G Needle length: 3.5 in Needle insertion depth: 7 cm Catheter type: side hole Catheter size: 19 G Catheter at skin depth: 14 cm Test dose: positive and lidocaine 1.5% with epinephrine 1-to-200,000 (1447: Negative test dose.) Needle attempts: 1 Additional Notes Epidural Kit Lot: [id number] Expiration: 11/06/2021 * Anesthesia Preprocedure Evaluation - [...] Family & Internal Medicine [facility] [address] [place] [address] [place] [address] [place] [address] 10/22/2025 9:15 AM SUPPORT ASSISTANT Office Visit [facility] [address] Mily Gan MD [place] [id number] [place], [place] [id number] documented as of this encounter Procedures Procedure [...] Needle and Catheter: MRI Compatible: MRI UNSAFE ([id number]) Needle type: Tuohy Needle gauge: 17 G Needle length: 3.5 in Needle insertion depth: 7 cm Catheter type: side hole Catheter size: 19 G Catheter at skin depth: 14 cm Test dose: positive and lidocaine 1.5% with epinephrine 1-to-200,000 (1447: Negative test dose.) Needle attempts: ??1 Additional Notes Epidural Kit Lot: [id number] Expiration: 11/06/2021 Jolene Cross DRILL PRESS TENDER PA ANESTHESIA Edited Result - Final documented in [...] 2:41 PM CDT 30 mg lidocaine-EPINEPHrine 1.5 %-1:[id number] injection Other, PRN, Starting on Yamilex 03/18/21 at 1447, Until Yamilex 03/18/21 at 1851, Anesthesia Intra-Op Given 03/18/2021 2:47 PM CDT 3 mLs lidocaine-EPINEPHrine 2 %-1:[id number] injection Epidural, PRN, Starting on Yamilex 03/18/21 [...] mg documented in this encounter Care Teams Fish Bait Picker Relationship Specialty Start Date End Date Lorie Chan MD PCP - General INTERNAL MEDICINE 01/15/20 02/09/23 documented as of this encounter
--- OUTSIDE RECORDS SUMMARY | 2024-11-02 09:19 | XMS_ITS | Encounter Summary ---
Author Organization [facility] Address [address] [place] [address]. [place], [place] [address] [place] [address] Care Team Providers Care Package Handler Name Role Phone Lorie Chan MD Primary Care Provider [phone] Encounter Details Date Type Department Care Team [...] Legal Sex Male 9:58 PM PROFESSOR OF LANGUAGES Gender Identity Not on file Sexual Orientation [...] Description 01/27/2025 7:00 AM CDT Office Visit [facility] Family & Internal Medicine [facility] [address] [place] [address] [place] [address] [place] [address] 10/22/2025 9:15 AM PROFESSOR OF LANGUAGES Office Visit [facility] [address] [place] [address] Mily Gan MD [facility] [address] [place] [address] documented as of this encounter Visit Diagnoses Not on filedocumented in this encounter Care Teams Package Handler Relationship Specialty Start Date End Date Lorie Chan MD PCP - General INTERNAL MEDICINE 01/15/20 02/09/23 documented as of this encounter
--- OUTSIDE RECORDS SUMMARY | 2024-11-02 09:19 | XMS_ITS | Encounter Summary ---
Author Organization [facility] Address [address] [place] [address]. [place], [place] [address] [place] [address] Care Team Providers Care Examination Proctor Name Role Phone Lorie Chan MD Primary Care Provider [phone] Encounter Details Date Type Department Care Team [...] on file Legal Sex Male 9:58 PM SECTION HAND HELPER Gender Identity Not on file Sexual [...] Group Family & Internal Medicine [facility] [address] [place] [address] [place] [address] [place] [address] 10/22/2025 9:15 AM SECTION HAND HELPER Office Visit [facility] [address] [place] [address] Mily Gan MD [facility] [address] [place] [address] documented as of this encounter Visit Diagnoses Not on filedocumented in this encounter Care Teams Examination Proctor Relationship Specialty Start Date End Date Lorie Chan MD PCP - General INTERNAL MEDICINE 01/15/20 02/09/23 documented as of this encounter
--- OUTSIDE RECORDS SUMMARY | 2024-11-02 09:19 | XMS_ITS | Encounter Summary ---
Author Organization [facility] Address [address] [place] [address]. [place], [place] [address] [place] [address] Care Team Providers Care Rn Occupational Name Role Phone Lorie Chan MD Primary Care Provider [phone] Reason for Visit * Auth/Cert Specialty Diagnoses / Procedures Referred By Shelby jama Referred To Contact Diagnoses Pharyngoesophageal dysphagia Dysphagia Procedures UPPER GI ENDOSCOPY,DIAGNOSIS EGD Referral ID Status Reason Start Date Expiration Date Visits Re quested Visits Authorized [id number] 1 1 Encounter Details Date Type Department Care Team (Late st Contact Info) Description 03/10/2021 8:26 AM CDT - 03/10/2021 8:53 AM CDT Surgery [facility] Surgery [address] [place] [address] Jenni Randolph MD [address] [place] [address] [id number] EGD WITH BIOPSY AND DILATION Surgery Details [...] file Legal Sex Male 9:58 PM WAGON PERSON Gender Identity Not on file Sexual Orientation [...] Everywhere. * Upper GI Endoscopy Discharge Instructions (Beninese) * Esophageal Stricture Discharge Instructions (Beninese) * Acid Reflux and GERD in Adults Discharge Instructions (Beninese) * Hiatal Hernia Discharge Instructions (Beninese) documented in this encounter Medications at Time [...] stricture biopsy is benign * MICHAEL Lovett Harvest Contractor - 03/10/2021 9:57 AM CDT Anesthesia Record Closure: As a Chart Correction Harvest Contractor, I closed the Anesthesia Record due to ageof the record. All required documentation was previously completed and signed by PRESS OPERATOR MEAT. N PERSON documented in this encounter H&P Notes * [...] during recuperation were discussed with the patient/family/personal commercial sales representative. Reasonable alternatives to the patient's proposed procedure/surgery including benefits, risks, and side effects related to the alternatives and the risks related to not receiving the proposed care were also discussed with the patient/family/personal commercial sales representative. Questions were answered and the patient/family/personal commercial sales representative verbalized understanding and desires to [...] N/A 2013 ??? [facility]?? [facility] ??? NECK/CHEST PROCEDURE UNLISTED Right [facility], re-built right side of neck. ??? TOTAL KNEE ARTHROPLASTY Bilateral ZANA Partial KR, done @ [facility] Social History: Social History Socioeconomic History ??? [...] file Gets together: Not on file Attends gnosticism service: Not on file Active member of [...] Randolph MD - 03/10/2021 9:11 AM CDT [facility] OpNote EGD WITH BIOPSY AND DILATION Procedure Note Natan Patel 03/10/2021 0826 Procedure(s) (LRB): EGD WITH BIOPSY AND DILATION (N/A) Surgeon(s): Jenni Randolph MD Staff: Circulating Nurse 1: Dorinda Pak RN Scrub Person 1: Savannah Mckee Usk, ACCOUNTING TEACHER Anesthesia: Monitor Anesthesia Care PRESS OPERATOR MEAT: Meredith Villagran CRNA Pre-Op Diagnosis: Dysphagia Post-Op [...] looked normal and scope withdrawn. A 48 Mohawk Guevara dilator was then lubricated inserted for single pass which was well-tolerated without significant resistance or heme. 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 Small hiatal hernia. Rest examination was [...] Family & Internal Medicine [facility] [id number] [place] [address] [place] [address] [place], [place] [phone] 10/22/2025 9:15 AM WAGON PERSON Office Visit [facility] [address] Mily Gan MD [address] [phone] documented as of this encounter Procedures Procedure Name Priority Date/Time Associated Diagnosis Comments PATHOLOGY Routine 03/10/2021 9:02 AM CDT UPPER GI ENDOSCOPY,DIAGNOS IS 03/10/2021 8:55 AM CDT Pharyngoesophageal dysphagia Special Needs 0700 documented in this encounter Results * Pathology (03/10/2021 9:02 AM CDT) Tissue specimen (specimen) GASTRIC BIOPSY SPECIMEN / Unknown 03/10/2021 9:02 AM CDT Comment:dysphagia Narrative [facility] - 03/15/2021 2:37 PM CDT Date of service: ??03/10/2021 Preoperative diagnosis: ??Dysphagia GROSS DESCRIPTION: ?? The specimen was received in formalin on 03/10/2021 and biopsy GE stricture. ??The specimen consists of ??four warren ovoid fragments of tissue measuring 0.2 cm in greatest dimension. ??Submitted entirely in a single cassette and both Giemsa and Alcian blue PAS stain will be performed. (CPT code: ??[id number], [id number], [id number]) Site: ??[facility] D: ??03/10/2021 03:10 PM #[id number] T: ??03/11/2021 08:52 AM /NTS PATHOLOGIC DIAGNOSIS: [...] or dysplasia present. D: ??03/15/2021 10:55 AM #[id number] T: ??03/15/2021 11:16 AM /NTS Jenni Randolph MD PATHOLOGY/CYTOLOGY ORDERABLES Fi nal Result [facility] [address] [place] [address], documented in this encounter Visit Diagnoses Diagnosis [...] RN) documented in this encounter Care Teams Rn Occupational Relationship Specialty Start Date End Date Lorie Chan MD PCP - General INTERNAL MEDICINE 01/15/20 02/09/23 documented as of this encounter
--- OUTSIDE RECORDS SUMMARY | 2024-11-02 09:19 | XMS_ITS | Encounter Summary ---
Author Organization [facility] Address [address] [place] [address]. [place] [address] [place] [address] Care Team Providers Care Pattern Gater Name Role Phone Lorie Chan MD Primary Care Provider [phone] Reason for Visit * Reason Onset Date Comments Results 03/18/2021 Encounter Details Date Type Department Care Team (Late st Contact Info) Description 03/18/2021 Telephone [facility] Medical Group Multispecialty Care - Health system [address] [facility], [address] [place] [phone] Cody Randolph MD 3 [facility] [address] [place], [place] [address] Results Social History Tobacco Use Types Packs/Day [...] file Legal Sex Male 9:58 PM WET PROCESS MILLER Gender Identity Not on file Sexual Orientation [...] Medical Group Family & Internal Medicine - [place] [address] [place] [address] [place] [address] [place], [place] [phone] 10/22/2025 9:15 AM WET PROCESS MILLER Office Visit [facility] [address] Mily Gan MD [address] [phone] documented as of this encounter Visit Diagnoses Not on filedocumented in this encounter Care Teams Pattern Gater Relationship Specialty Start Date End Date Lorie Chan MD PCP - General INTERNAL MEDICINE 01/15/20 02/09/23 documented as of this encounter
--- OUTSIDE RECORDS SUMMARY | 2024-11-02 09:19 | XMS_ITS | Encounter Summary ---
Author Organization [facility] Address [address] [place] [address]. [place], [place] [address] [place] [address] Care Team Providers Care Electrolysis Investigator Name Role Phone Lorie Chan MD Primary Care Provider [phone] Encounter Details Date Type Department Care Team [...] on file Legal Sex Male 9:58 PM TREATMENT COUNSELOR Gender Identity Not on file Sexual Orientation Not on file COVID-19 Exposure Response Date Recorded In the last month, have you been in contact with someone who was confirmed or suspected to have Coronavirus / COVID-19? No / Unsure 01/14/2021 3:20 PM TREATMENT COUNSELOR documented as of this encounter Plan of Treatment Upcoming Encounters Date Type Department Care Team (Late st Contact Info) Description 01/27/2025 7:00 AM CDT Office Visit [facility] Medical Group Family & Internal Medicine - [place] [address] [place] [address] [place] [address] [place] [address] 10/22/2025 9:15 AM TREATMENT COUNSELOR [facility] [address] [place] [address] Mily Gan MD [address] [address] documented as of this encounter Visit Diagnoses Not on filedocumented in this encounter Care Teams Electrolysis Investigator Relationship Specialty Start Date End Date Lorie Chan MD PCP - General INTERNAL MEDICINE 01/15/20 02/09/23 documented as of this encounter
--- OUTSIDE RECORDS SUMMARY | 2024-11-02 09:19 | XMS_ITS | Encounter Summary ---
Author Organization [facility] Address [address] [place] [address]. [place], [place] [address] [place] [address] Care Team Providers Care Executive Vice President And Chief Financial Officer Name Role Phone Lorie Chan MD Primary Care Provider Reason for Visit * Reason Onset Date Comments Cough 02/12/2020 Encounter Details Date Type Department Care Team (Late Contact Info) Description 02/12/2020 Telephone [facility] Family & Internal Medicine [address] [address] [place] [address] [place] [address] Cough Social History Tobacco Use Types Packs/Day Years Used Date Smoking Tobacco: Every Day Cigarettes Smokeless Tobacco: Never Alcohol Use Standard Drinks/Week Comments Yes 0 (1 standard drink = 0.6 oz pur e alcohol) Occasionally PHQ-2 Answer Date Recorded PHQ-2 Score 0 01/15/2020 Sex and Gender Information Value Date Recorded Sex Assigned at Not on file Legal Sex Male 9:58 PM MANAGER PRODUCT Gender Identity Not on file Sexual Orientation Not on file documented as of this encounter Plan of Treatment Upcoming Encounters Date Type Department Care Team (Late Contact Info) Description 01/27/2025 7:00 AM CDT Office Visit [facility] Family & Internal [address] [address] [place] [address] [place] [address] 10/22/2025 9:15 AM MANAGER PRODUCT Office Visit [facility] [address] [place] [address] Mily Gan MD [facility] [address] [place] [address] documented as of this encounter Visit Diagnoses Diagnosis Cough- Primary documented in this encounter Care Teams Executive Vice President And Chief Financial Officer Relationship Specialty Start Date End Date Lorie Chan MD PCP - General INTERNAL MEDICINE 01/15/20 02/09/23 documented as of this encounter
--- OUTSIDE RECORDS SUMMARY | 2024-11-02 09:19 | XMS_ITS | Encounter Summary ---
Author Organization [facility] Address [address] [place] [address]. [place] [address] [place] [address] Care Team Providers Care Factorer Name Role Phone Lorie Chan MD Primary Care Provider [phone] Reason for Referral * Surgical (Routine) - Closed Specialty Diagnoses / Procedures Referred By Shelby jama Referred To Contact Diagnoses Pharyngoesophageal dysphagia Procedures Case request operating room: EGD Cody Randolph MD 3 [facility] [address] [place] [address] Phone: tel: fax: Referral ID Status Reason Start Date Expiration Date Visits Re quested Visits Authorized [id number] Closed 02/25/2021 03/27/2022 1 1 Encounter Details Date Type Department Care Team (Late st Contact Info) Description 02/25/2021 Orders Only [facility] Multispecialty Care - [facility] [address] [facility] [address] [place] [phone] Cody Randolph MD 3 [facility] [address] [place], [place] [address] Social History Tobacco Use Types Packs/Day Years [...] on file Legal Sex Male 9:58 PM CHIROPRACTIC PRACTICE MANAGER Gender Identity Not on file Sexual [...] [facility] Family [facility] [address] [place] [address] [place] [address] [place], [place] [phone] 10/22/2025 9:15 AM CHIROPRACTIC PRACTICE MANAGER Office Visit [facility] [phone] Mily Gan MD [address] [phone] Scheduled Orders Name Type Priority Associated Diagnoses Orde r Schedule Case request operating room: EGD Case Request Routine Pharyngoesophageal dysphagia Ordered: 02/25/2021 documented as of this encounter Visit Diagnoses Diagnosis Pharyngoesophageal dysphagia- Primary Dysphagia, pharyngoesophageal phase documented in this encounter Care Teams Factorer Relationship Specialty Start Date End Date Lorie Chan MD PCP - General INTERNAL MEDICINE 01/15/20 02/09/23 documented as of this encounter
--- OUTSIDE RECORDS SUMMARY | 2024-11-02 09:19 | XMS_ITS | Encounter Summary ---
Author Organization [facility] Address [address] [place] [address]. [place], [place] [address] [place] [address] Care Team Providers Care Mover Helper Name Role Phone Lorie Chan MD Primary Care Provider [phone] Encounter Details Date Type Department Care Team [...] on file Legal Sex Male 9:58 PM END TOUCHING MACHINE OPERATOR Gender Identity Not on file Sexual Orientation Not on file COVID-19 Exposure Response Date Recorded In the last month, have you been in contact with someone who was confirmed or suspected to have Coronavirus / COVID-19? No / Unsure 01/12/2021 7:58 AM END TOUCHING MACHINE OPERATOR documented as of this encounter Plan of Treatment Upcoming Encounters Date Type Department Care Team (Late st Contact Info) Description 01/27/2025 7:00 AM CDT Office Visit [facility] Medical Group Family & Internal Medicine - [place] [address] [place] [address] [place] [address] [place] [address] 10/22/2025 9:15 AM END TOUCHING MACHINE OPERATOR [facility] [address] [place] [phone] Mily Gan MD [address] [address] documented as of this encounter Visit Diagnoses Not on filedocumented in this encounter Care Teams Mover Helper Relationship Specialty Start Date End Date Lorie Chan MD PCP - General INTERNAL MEDICINE 01/15/20 02/09/23 documented as of this encounter
--- OUTSIDE RECORDS SUMMARY | 2024-11-02 09:19 | XMS_ITS | Encounter Summary ---
Author Organization [facility] Address [address] [place] [address]. [place], [place] [address] [place] [address] Care Team Providers Care Box Spinner Name Role Phone Lorie Castanon MD Primary Care Provider [phone] Reason for Visit * Reason Comments New Patient Establishing Care [facility] PCP. Hyperlipidemia needs refill Osteoarthritis Encounter Details Date Type Department Care Team (Latest Contact Info) Description 01/15/2020 2:00 PM CDT Office Visit [facility] Medical Group Family & Internal Medicine [facility] [address] [place] [phone] [place] Castanon [place] [address] [place] [address] New Patient (Establishing Care with PCP. 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 HERNIA REPAIR Right [facility] ??? HERNIA REPAIR Left [facility] ??? NECK/CHEST PROCEDURE UNLISTED Right [facility], re-built right side of neck. ??? TOTAL KNEE ARTHROPLASTY Bilateral ZANA Partial KR, done @ [facility] Social History Socioeconomic History ??? [...] file Gets together: Not on file Attends roman catholic service: Not on file Active member of [...] and his last colonoscopy was 2013 in [place] which was normal we will see if we can obtain that report. Follow up FU 6 MONTHS LORIE CASTANON MD 01/15/2020 5:44 PM documented in this encounter Plan of Treatment Upcoming Encounters Date Type Department Care Team (Late st Contact Info) Description 01/27/2025 7:00 AM CDT Office Visit [facility] Medical Group Family & Internal Medicine [facility] [address] [place] [phone] [place] [address] [place], [place] [phone] 10/22/2025 9:15 AM STEM LEAD FORMER Office Visit [facility] [phone] Mily Gan MD [facility]. [address] [address] documented as of this encounter Results * PROSTATE SPECIFIC ANTIGEN,SCREENING (07/07/2020 8:55 AM CDT) PSA 0.76 <4.0 NG/ML 07/07/2020 4:50 PM CDT [facility] Comment: Test was performed using the Siemens method. ??Results obtained with other assay methods or kits cannot be used interchangeably with results obtained by the Siemens method. 07/07/2020 8:55 AM CDT us Lorie Castanon MD LABORATORY Final Result Performing Organization Address [facility] de Phone Number [facility] [address] [place] [address], * VITAMIN D, 25 OH (07/07/2020 8:55 AM CDT) VITAMIN D 25 HYDROXY S/P/B 68 30 - 100 NG/ML 07/07/2020 4:51 PM CDT [facility] Comment: ? INTERPRETATION ? DEFICIENT ??<20 ? INSUFFICIENT 20-29 ?SUFFICIENT 30-100 07/07/2020 8:55 AM CDT us Lorie Castanon MD LABORATORY Final Result Performing Organization Address [facility] de Phone Number [facility] [address] [place] [address], * VITAMIN B12 / FOLATE (07/07/2020 8:55 AM CDT) VITAMIN B12 S/P/B 965 193 - 986 PG/ML 07/07/2020 11:[address] [facility] FOLATE >20.0 8.6 - 58.9 NG/ML 07/07/2020 11:[address] [facility] 07/07/2020 8:55 AM CDT Lorie Castanon MD LABORATORY Final Result [facility] [address] [place] [address], [place] [phone] * TSH W/REFLEX (07/07/2020 8:55 AM CDT) TSH 0.961 0.358 - 3.74 uIU/ML 07/07/2020 11:[address] [facility] Comment: HIGH DOSES OF BIOTIN MAY INTERFERE WITH THIS TEST RESULT. CORRELATION TO CLINICAL HISTORY AND PRESENTATION RECOMMENDED. FREE T4 NOT INDICATED 07/07/2020 8:55 AM CDT Lorie Castanon MD LABORATORY Final Result Performing Organization Address City/[facility]/ZIP Co de Phone Number [facility] [address] [place] [address], [place] [phone] * (ABNORMAL) LIPID PANEL (07/07/2020 8:55 AM CDT) CHOLESTEROL 207(H) <200.0 MG/DL 07/07/2020 11:[address] [facility] TRIGLYCERIDES 102 <150 MG/DL 07/07/2020 11:[address] [facility] HDL 54 >40.0 MG/DL 07/07/2020 11:[address] [facility] LDL (CALCULATED) 133(H) <100 MG/DL 07/07/2020 11:[address] [facility] NON HDL CHOLESTEROL 153(H) <130 MG/DL 07/07/2020 11:[address] [facility] CHOL/HDL RATIO 3.8 0.0 - 4.5 07/07/2020 11:[address] [facility] VLDL CALCULATION 20 5 - 55 MG/DL 07/07/2020 11:41 AM CDT [facility] LIPID INTERPRETATION 07/07/2020 11:41 AM CDT [facility] Comment: NIH CONCENSUS [...] us Lorie Castanon MD LABORATORY Final Result [facility] [address] [place] [address], [place] [phone] * (ABNORMAL) COMPREHENSIVE METABOLIC PANEL (07/07/2020 8:55 AM CDT) Pathologist [facility] GLUCOSE 102(H) 70 - 99 MG/DL 07/07/2020 11:[address] [facility] BUN 22(H) 7 - 18 MG/DL 07/07/2020 11:[address] [facility] CREATININE S/P/B 0.76 0.7 - 1.3 MG/DL 07/07/2020 11:[address] [facility] SODIUM S/P/B 142 136 - 145 MMOL/L 07/07/2020 11:[address] [facility] POTASSIUM S/P/B 4.5 3.5 - 5.1 MMOL/L 07/07/2020 11:[address] [facility] CHLORIDE S/P/B 105 100 - 108 MMOL/L 07/07/2020 11:[address] [facility] CO2 26.8 21 - 32 MMOL/L 07/07/2020 11:[address] [facility] CALCIUM S/P/B 8.7 8.5 - 10.1 MG/DL 07/07/2020 11:[address] [facility] BILIRUBIN TOTAL S/P/B 1.0 0.2 - 1.2 MG/DL 07/07/2020 11:[address] [facility] TOTAL PROTEIN S/P/B 7.4 6.4 - 8.2 G/DL 07/07/2020 11:[address] [facility] ALBUMIN S/P/B 3.9 3.4 - 5.0 G/DL 07/07/2020 11:[address] [facility] AST 19 15 - 37 U/L 07/07/2020 11:[address] [facility] ALT 27 16 - 60 U/L 07/07/2020 11:[address] [facility] ALKALINE PHOSPHATASE S/P/B 47(L) 50 - 136 U/L 07/07/2020 11:[address] [facility] ANION GAP 10.2 5 - 15 MMOL/L 07/07/2020 11:[address] [facility] BUN CREATININE RATIO 28.9(H) 6 - 26 07/07/2020 11:[address] [facility] A/G RATIO 1.1 1.0 - 2.0 RATIO 07/07/2020 11:[address] [facility] EGFR NON-AFR. AMER. >90 >90 ML/MIN/1.7 3 M2 07/07/2020 11:[address] [facility] EGFR AFR. AMER. >90 >90 ML/MIN/1.7 3 M2 07/07/2020 11:[address] [facility] Comment: NOTE: eGFR is not calculated for patients <18 years of age. This is an estimated GFR (CKD EPI) and should not be used for calculating drug doses. 07/07/2020 8:55 AM CDT us Lorie Castanon MD LABORATORY Final Result [facility] [address] [place] [address], [place] [phone] * (ABNORMAL) CBC W/DIFF AUTOMATED (07/07/2020 8:55 AM CDT) WBC 4.3(L) 4.4 - 11.0 x10'3/uL 07/07/2020 9:[address] [facility] RBC 4.37(L) 4.50 - 5.90 x10'6/uL 07/07/2020 9:[address] [facility] HGB 14.3 14.0 - 17.5 G/DL 07/07/2020 9:[address] [facility] HCT 41.9 41.5 - 50.4 % 07/07/2020 9:[address] [facility] MCV 95.9 80.0 - 96.0 FL 07/07/2020 9:14 AM [facility] MCH 32.7(H) 26.5 - 31.4 PG 07/07/2020 9:14 AM [facility] MCHC 34.1 31.9 - 34.8 G/DL 07/07/2020 9:14 AM [facility] RDW 12.8 12.3 - 14.3 % 07/07/2020 9:14 AM [facility] PLT 238 151 - 353 x10'3/uL 07/07/2020 9:14 AM [facility] MPV 10.4 9.7 - 11.9 FL 07/07/2020 9:14 AM [facility] RBC MORPHOLOGY NORMAL 07/07/2020 9:[address] [facility] PLT MORPH. NORMAL 07/07/2020 9:[address] [facility] WBC MORPHOLOGY NORMAL 07/07/2020 9:14 AM [facility] LYMPHOCYTES % 33.9 15.8 - 45.0 % 07/07/2020 9:[address] [facility] NEUTROPHILS % 50.6 42.1 - 71.9 % 07/07/2020 9:[address] [facility] MONOCYTES % 12.2 5.7 - 12.5 % 07/07/2020 9:[address] [facility] EOSINOPHILS 1.9 0.0 - 5.6 % 07/07/2020 9:[address] [facility] BASOPHILS 1.2 0.0 - 1.3 % 07/07/2020 9:[address] [facility] ABS. NEUTROPHILS TOTAL 2.15 1.40 - 6.00 x10'3/uL 07/07/2020 9:[address] [facility] IMMATURE GRANS % 0.2 0.0 - 0.5 % 07/07/2020 9:[address] [facility] ABS. LYMPHOCYTES 1.44 0.80 - 4.70 x10'3/uL 07/07/2020 9:[address] [facility] 07/07/2020 8:55 AM CDT Lorie Castanon MD LABORATORY Final Result [facility] [address] [place] [address], documented in this encounter Visit Diagnoses Diagnosis Mixed hyperlipidemia- Primary Primary osteoarthritis involving multiple joints Vitamin D deficiency Unspecified vitamin D deficiency Screening PSA (prostate specific antigen) Special screening for malignant neoplasm of prostate Need for prophylactic vaccination against Streptococcus pneumoniae (pneumococcus) Need for prophylactic vaccination against streptococcus pneumoniae (pneumococcus) BMI 26.0-26.9,adult Body Mass Index 26.0-26.9, adult documented in this encounter Care Teams Box Spinner Relationship Specialty Start Date End Date Lorie Castanon MD PCP - General INTERNAL MEDICINE 01/15/20 02/09/23 documented as of this encounter
--- OUTSIDE RECORDS SUMMARY | 2024-11-02 09:19 | XMS_ITS | Encounter Summary ---
Author Organization [facility] Address [address] [place] [address]. 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 [address] [place] [address] documented as of this encounter Procedures Procedure [...] 0.76 <4.0 NG/ML 07/07/2020 4:50 PM CDT [facility] Comment: Test was performed using the Siemens method. ??Results obtained with other assay methods or kits cannot be used interchangeably with results obtained by the Siemens method. 07/07/2020 8:55 AM CDT us Lorie Chan MD LABORATORY Final Result Performing Organization Address [facility] Co de Phone Number [facility] [address] [place] [address], [place] [phone] * VITAMIN D, 25 OH (07/07/2020 8:55 AM CDT) VITAMIN D 25 HYDROXY S/P/B 68 30 - 100 NG/ML 07/07/2020 4:51 PM CDT [facility] Comment: ? INTERPRETATION ? DEFICIENT ??<20 ? INSUFFICIENT 20-29 ?SUFFICIENT 30-100 07/07/2020 8:55 AM CDT Lorie Chan MD LABORATORY Final Result Performing Organization Address [facility] Co de Phone Number [facility] [address] [place] [address], [place] [phone] * VITAMIN B12 / FOLATE (07/07/2020 8:55 AM CDT) VITAMIN B12 S/P/B 965 193 - 986 PG/ML 07/07/2020 11:41 AM CDT [facility] FOLATE >20.0 8.6 - 58.9 NG/ML 07/07/2020 11:41 AM CDT [facility] 07/07/2020 8:55 AM CDT Lorie Chan MD LABORATORY Final Result Performing Organization Address City/[facility]/ZIP Co de Phone Number [facility] [address] [place] [address], [place] [phone] * TSH W/REFLEX (07/07/2020 8:55 AM CDT) TSH 0.961 0.358 - 3.74 uIU/ML 07/07/2020 11:41 AM CDT [facility] Comment: HIGH DOSES OF BIOTIN MAY INTERFERE WITH THIS TEST RESULT. CORRELATION TO CLINICAL HISTORY AND PRESENTATION RECOMMENDED. FREE T4 NOT INDICATED 07/07/2020 8:55 AM CDT Lorie Chan MD LABORATORY Final Result [facility] [address] [place] [address], * (ABNORMAL) LIPID PANEL (07/07/2020 8:55 AM CDT) CHOLESTEROL 207(H) <200.0 MG/DL 07/07/2020 11:41 AM T [facility] TRIGLYCERIDES 102 <150 MG/DL 07/07/2020 11:[address] [facility] HDL 54 >40.0 MG/DL 07/07/2020 11:41 AM T [facility] LDL (CALCULATED) 133(H) <100 MG/DL 07/07/2020 11:41 AM T [facility] NON HDL CHOLESTEROL 153(H) <130 MG/DL 07/07/2020 11:41 AM T [facility] CHOL/HDL RATIO 3.8 0.0 - 4.5 07/07/2020 11:41 AM T [facility] VLDL CALCULATION 20 5 - 55 MG/DL 07/07/2020 11:[address] [facility] LIPID INTERPRETATION 07/07/2020 11:41 AM T [facility] Comment: [facility] REPORT RECOMMENDATIONS: [...] MD LABORATORY Final Result Performing Organization Address [facility]/State/ZIP Co de Phone Number [facility] () [facility] [address] [place] [address], * (ABNORMAL) COMPREHENSIVE METABOLIC PANEL (07/07/2020 8:55 AM CDT) [facility] GLUCOSE 102(H) 70 - 99 MG/DL 07/07/2020 11:[address] [facility] BUN 22(H) 7 - 18 MG/DL 07/07/2020 11:[address] [facility] CREATININE S/P/B 0.76 0.7 - 1.3 MG/DL 07/07/2020 11:[address] [facility] SODIUM S/P/B 142 136 - 145 MMOL/L 07/07/2020 11:[address] [facility] POTASSIUM S/P/B 4.5 3.5 - 5.1 MMOL/L 07/07/2020 11:[address] [facility] CHLORIDE S/P/B 105 100 - 108 MMOL/L 07/07/2020 11:[address] [facility] CO2 26.8 21 - 32 MMOL/L 07/07/2020 11:[address] [facility] CALCIUM S/P/B 8.7 8.5 - 10.1 MG/DL 07/07/2020 11:[address] [facility] BILIRUBIN TOTAL S/P/B 1.0 0.2 - 1.2 MG/DL 07/07/2020 11:[address] [facility] TOTAL PROTEIN S/P/B 7.4 6.4 - 8.2 G/DL 07/07/2020 11:[address] [facility] ALBUMIN S/P/B 3.9 3.4 - 5.0 G/DL 07/07/2020 11:[address] [facility] AST 19 15 - 37 U/L 07/07/2020 11:[address] [facility] ALT 27 16 - 60 U/L 07/07/2020 11:[address] [facility] ALKALINE PHOSPHATASE S/P/B 47(L) 50 - 136 U/L 07/07/2020 11:41 AM CDT [facility] ANION GAP 10.2 5 - 15 MMOL/L 07/07/2020 11:41 AM CDT [facility] BUN CREATININE RATIO 28.9(H) 6 - 26 07/07/2020 11:41 AM CDT [facility] A/G RATIO 1.1 1.0 - 2.0 RATIO 07/07/2020 11:41 AM CDT [facility] EGFR NON-AFR. AMER. >90 >90 ML/MIN/1.7 3 M2 07/07/2020 11:41 AM CDT [facility] EGFR AFR. AMER. >90 >90 ML/MIN/1.7 3 M2 07/07/2020 11:41 AM CDT [facility] Comment: NOTE: eGFR is not calculated for patients <18 years of age. This is an estimated GFR (CKD EPI) and should not be used for calculating drug doses. 07/07/2020 8:55 AM CDT Lorie Chan MD LABORATORY Final Result [facility] [address] [place] [address], * (ABNORMAL) CBC W/DIFF AUTOMATED (07/07/2020 8:55 AM CDT) WBC 4.3(L) 4.4 - 11.0 x10'3/uL 07/07/2020 9:14 AM CDT [facility] RBC 4.37(L) 4.50 - 5.90 x10'6/uL 07/07/2020 9:14 AM CDT [facility] HGB 14.3 14.0 - 17.5 G/DL 07/07/2020 9:14 AM CDT [facility] HCT 41.9 41.5 - 50.4 % 07/07/2020 9:14 AM CDT [facility] MCV 95.9 80.0 - 96.0 FL 07/07/2020 9:14 AM CDT [facility] MCH 32.7(H) 26.5 - 31.4 PG 07/07/2020 9:14 AM CDT [facility] MCHC 34.1 31.9 - 34.8 G/DL 07/07/2020 9:14 AM T [facility] RDW 12.8 12.3 - 14.3 % 07/07/2020 9:14 AM T [facility] PLT 238 151 - 353 x10'3/uL 07/07/2020 9:14 AM T [facility] MPV 10.4 9.7 - 11.9 FL 07/07/2020 9:14 AM T [facility] RBC MORPHOLOGY NORMAL 07/07/2020 9:14 AM T [facility] PLT MORPH. NORMAL 07/07/2020 9:[address] [facility] WBC MORPHOLOGY NORMAL 07/07/2020 9:[address] [facility] LYMPHOCYTES % 33.9 15.8 - 45.0 % 07/07/2020 9:14 AM T [facility] NEUTROPHILS % 50.6 42.1 - 71.9 % 07/07/2020 9:14 AM T [facility] MONOCYTES % 12.2 5.7 - 12.5 % 07/07/2020 9:14 AM T [facility] EOSINOPHILS 1.9 0.0 - 5.6 % 07/07/2020 9:14 AM CDT [facility] BASOPHILS 1.2 0.0 - 1.3 % 07/07/2020 9:14 AM CDT [facility] ABS. NEUTROPHILS TOTAL 2.15 1.40 - 6.00 x10'3/uL 07/07/2020 9:14 AM CDT [facility] IMMATURE GRANS % 0.2 0.0 - 0.5 % 07/07/2020 9:14 AM CDT [facility] ABS. LYMPHOCYTES 1.44 0.80 - 4.70 x10'3/uL 07/07/2020 9:14 AM CDT [facility] 07/07/2020 8:55 AM CDT Lorie Chan MD LABORATORY Final Result Performing Organization Address City/State/[facility] Co de Phone Number [facility] [address] [place] [address], documented in this encounter Visit Diagnoses Diagnosis Mixed hyperlipidemia Vitamin D deficiency Unspecified vitamin D deficiency Screening PSA (prostate specific antigen) Special screening for malignant neoplasm of prostate documented in this encounter Care Teams Supervisor Sawing And Assembly Relationship Specialty Start Date End Date Lorie Chan MD PCP - General INTERNAL MEDICINE 01/15/20 02/09/23 documented as of this encounter
--- OUTSIDE RECORDS SUMMARY | 2024-11-02 09:19 | XMS_ITS | Encounter Summary ---
Author Organization [facility] Address [address] [place] [address]. [place] [address] [place] [address] Care Team Providers Care Payroll Assistant Name Role Phone Lorie Chan MD Primary Care Provider [phone] Moraima Toledo RN Unavailable [phone] Reason for Visit * Reason Onset Date Comments Hospital Follow Up 03/19/2021 Encounter Details Date Type Department Care Team (Late st Contact Info) Description 03/19/2021 Patient Outreach [facility] Family & Internal Medicine [facility] [address] [place] [phone] Moraima Toledo, RN [address] [place] [address] Hospital Follow Up Social History [...] on file 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 Care coordination [...] Medical Group Family & Internal Medicine - [place] [address] [place] [address] [place] [address] [place], [place] [phone] 10/22/2025 9:15 AM WIRE GALVANIZER Office Visit [facility] [address] [address] Mily Gan MD [address] [phone] documented as of this encounter Visit Diagnoses Not on filedocumented in this encounter Care Teams Payroll Assistant Relationship Specialty Start Date End Date Lorie Chan MD PCP - General INTERNAL MEDICINE 01/15/20 02/09/23 Moraima Toledo, RN [address] [place] [address] Foundry Melt Supervisor (Ambulatory) REGISTERED NURSE 03/19/21 documented as of this encounter
--- OUTSIDE RECORDS SUMMARY | 2024-11-02 09:19 | XMS_ITS | Encounter Summary ---
Author Organization [facility] Address [address] [place] [address]. [place] [address] [place] [address] Care Team Providers Care Felled Seam Operator Name Role Phone Jeremy Castanon MD Primary Care Provider [phone] Reason for Visit * Auth/Cert Specialty Diagnoses / Procedures Referred By Shelby jama Referred To Contact Diagnoses Perforated diverticulum Perforated diverticulum Procedures INP Referral ID Status Reason Start Date Expiration Date Visits Re quested Visits Authorized [id number] 1 1 Encounter Details Date Type Department Care Team (Late st Contact Info) Description 03/18/2021 2:30 PM CDT - 03/18/2021 4:33 PM CDT Surgery [facility] [address] [place] [address] Margarita Sloan MD [address] [facility] [address] [place] [address] LAPAROSCOPY DIAGNOSTIC, open sigmoidectomy with repair of [...] file Legal Sex Male 9:58 PM 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 amoxicillin-clavulanate 875-125 MG tablet ?? HYDROcodone-acetaminophen [...] services: (examples or possibly selections could include): longterm to: Perform skilled assessment, medical condition education related to the above clinical and medical condition.Therapy assessment and treatment if appropriate Patient Instructions: Activity: activity as tolerated Diet: Diet low fiber Appropriate Wound Care: as directed Therapy Ordered: Physical Therapy: Evaluate and Treat Occupational Therapy: Evaluate and Treat longterm: Evaluate and treat Follow-up appointments: PCP in a week, general surgery in a week Hospital Course: Mandie Cotter is a 65-year-old male that presented to the ED at [facility] for complaints of severe lower abdominal/suprapubic abdominal pain associated with subjective fevers and chills. ??He also stated that he did have associated urinary frequency but denied any particles in the urine. ??He denied any change in bowel movements. ??He stated that the pain was so severe but relieved with pain medication twice in the emergency department at [facility]. He believes his last colonoscopy was close [...] right for you. Copyright Copyright ?? 2020 [employer]. and its affiliates and/or licensors. All rights [...] my stoma. Where can I learn more? [employer] https://www.cancer.org/treatment/dpvpgwkhzb-rjg-mold-effects/treatment-types/christa marcia/ostomies/ileostomy/management.html Wound Ostomy and Continence Nurses Society [...] right for you. Copyright Copyright ?? 2020 [employer] and its affiliates and/or licensors. All rights reserved. * Attachments The following attachments cannot be sent through Care Everywhere. * How to Care for Your Mullins Catheter, Male ([place] Konger) * Easton-Srinivasan Drain ([place] Konger) * Low Fiber Diet ([place] Konger) * How to Keep Track of Your Drainage ([place] Konger) * Hydrocodone and Acetaminophen, ADULT ([place]) * Senna, ADULT ([place]) * Amoxicillin and Clavulanate, ADULT ([place]) documented in this encounter Medications at Time [...] Day Supply 20 tablet 1 09/22/20 21 [facility] [place] [employer] (OSTEO BI-FLEX JOINT SHIELD OR) [...] Doing well. Plan: Okay to discharge home. [place] filled cystogram next and follow- up with [...] Treviño RN Outcome: Progressing 03/23/2021 0000 by uRma Treviño RN Outcome: Progressing Problem: Fluid Volume [...] Verbalized understanding [facility] homehealth will follow. Phone number for the [...] wifeand inform [facility] Home Care is their home health preference. Referral completed to [facility] Home Care . Ostomy /wound care nurse [...] AM CDT [facility] GENERAL SURGERY DAILY PROGRESS NOTE Mandie Cotter [...] AM CDT [facility] GENERAL SURGERY DAILY PROGRESS NOTE Mandie Cotter [...] index is 26.55 kg/m??. BMI Assessment: Normal [place] Body Weight: 136 pounds Percent [place] Body Weight: 121% Usual Body Weight: 166 [...] nursing Chewing/swallowing problems: No Food allergies/intolerances: none Cultural/Taoist food preferences: none Current diet appropriate? Yes until safe to use the enteral route Current intake sufficient to meet nutritional needs? No Pain affecting PO intake? No Estimated Nutrient Needs: Calories: 6819-4814 kcal/day, based on 25-30 kcal/kg Protein: 94 gm/day, based on 1.25 gm/kg Fluid: 2000 ml/day, based on 30 cc/kg Labs: Alb 3.0, TP 6.6 HGB A1C Date Value Ref Range Status 02/15/2019 5.6 5.7 Final Nutrition Risk: High Inadequate Oral Intake Yes Unintended Weight Loss No Loss of Body Fat not completed Muscle Wasting not completed Fluid Accumulation No Reduced Human Resources Operations Specialist Strength not completed Discharge nutrition plan: Discharge needs assessed. Will provide/update discharge instructions as needed. (See Nutrition Prescription above) [address]Y [address] 03/19/21, 11:04 AM * Abdoulaye Jane MD - 03/19/2021 9:19 AM CDT [facility] GENERAL SURGERY DAILY PROGRESS NOTE Mandie Browne [...] POD#1. Currently afebrile and HDS on 3 LNC. The patient is doing well overall. Awaiting [...] male that presented to the ED at [facility] for complaints of severe lower abdominal/suprapubic abdominal pain associated with subjective fevers and chills. He also stated that he did have associated urinary frequency but denied any particles in the urine. He denied any change in bowel movements. He stated that the pain was so severe but relieved with pain medication twice in the emergency department at [facility]. He believes his last colonoscopy was close [...] N/A 2013 ??? [facility]?? HERNIA REPAIR Left [facility] ??? NECK/CHEST PROCEDURE UNLISTED Right [facility], re-built right side of neck. ??? TOTAL KNEE ARTHROPLASTY Bilateral ZANA Partial KR, done @ [facility] Social History Social History Socioeconomic History [...] Gatherings with Friends and Family: ??? Attends Taoist Services: ??? Active Member of Clubs or [...] questions answered. [facility] home health to see pt tomorrow. * [...] bag and ring, and skin prep pads. [facility] resource numbers for wound nurse, home health and Dr Sloan. * Violet Rinaldi RN - 03/22/2021 3:30 PM CDT Pt and seen by Maria Fernanda Jorge for Ostomy teaching * Violet Rinaldi RN - 03/22/2021 10:26 AM CDT Wound care nurse Maria Fernanda oJrge contacted via doc halo regarding consult for [...] of Surgery: 03/18/2021 Surgeon: Margarita Sloan MD Correspondence Section Supervisor: Runner/Help Start: Cindy Hammond RN Circulating Nurse 1: Bianca Barclay RN Scrub Person 1: Susan Mcpherson, BUSINESS DEVELOPMENT MANAGER Scrub Person 2: Bharti Chávez LPN Pre-Op Diagnosis: perforated sigmoid diverticulitis with free air Post-Op Diagnosis: Same Procedure: Diagnostic laparoscopy, exploratory laparotomy with sigmoidectomy and colostomy (Hudson's procedure), suture repair of bladder, Briana VAC placement. Anesthesia Type: General Anesthesia Team: MAGAZINE EDITOR: Jolene Cross CRNA; David Ha CRNA EBL: Less than 30 mL Complications: None Drains: 15 [place] Islander Easton-Srinivasan drain Indication: Mandie Cotter is a [...] was then held in place using a Welch. An elliptical incision was then made in [...] warm normal saline containing Ancef. A 15 [place] Islander Easton-Srinivasan drain was then placed through the [...] [facility] Medical Group Family & Internal Medicine [facility] [id number] [place] [id number] Ilir Nelson PA [address] [place] [address] 10/22/2025 9:15 AM COMPUTER SYSTEMS ADMINISTRATOR Office Visit [facility]-[address] [phone] Mily Gan MD [address] [address] documented as of this encounter Procedures Procedure [...] CDT FINDINGS AND IMPRESSION: 1. ??After a budget analyst image was obtained, the bladder was allowed to fill with Isovue-370 by gravity until the patient felt a full bladder sensation. Numerous images were acquired for the procedure in the AP and bilateral oblique projections. Final images were obtained after allowing the bladder to empty. 2. ??Dental Office Manager radiograph demonstrates the patient is status post [...] mGy. FINDINGS AND IMPRESSION: 1. After a budget analyst image was obtained, the bladder was allowed to fill withIsovue- 370 by gravity until the patient felt a full bladder sensation.Numerous images were acquired for the procedure in the AP and bilateraloblique projections. Final images were obtained after allowing the bladderto empty. 2. Dental Office Manager radiograph demonstrates the patient is status post [...] * MAGNESIUM (03/22/2021 5:00 AM CDT) Pathologist [facility] MAGNESIUM 1.9 1.8 - 2.4 MG/DL 03/22/2021 6:07 AM CDT [facility] 03/22/2021 5:00 AM CDT Lita Hu MD LABORATORY Final Result [facility] [address] [place] [address], [place] [phone] * (ABNORMAL) CBC W/DIFF AUTOMATED (03/22/2021 5:00 AM CDT) WBC 8.4 4.8 - 10.8 x10'3/uL 03/22/2021 5:31 AM CDT [facility] RBC 3.87(L) 4.50 - 5.90 x10'6/uL 03/22/2021 5:31 AM CDT [facility] HGB 12.4(L) 13.5 - 17.5 G/DL 03/22/2021 5:31 AM CDT [facility] HCT 37.3(L) 41 - 53 % 03/22/2021 5:31 AM CDT [facility] MCV 96.4 80 - 100 FL 03/22/2021 5:31 AM CDT [facility] MCH 32.0 26.0 - 34.0 PG 03/22/2021 5:31 AM T [facility] MCHC 33.2 31.0 - 37.0 G/DL 03/22/2021 5:31 AM T [facility] RDW 12.9 11.5 - 14.5 % 03/22/2021 5:31 AM T [facility] PLT 225 150 - 350 x10'3/uL 03/22/2021 5:31 AM T [facility] CBC COMMENT AUTOMATED RBC MORPHOLOGY AND PLATELET EVALUATION NORMAL 03/22/2021 5:31 AM T [facility] NEUTROPHILS % 73.2(H) 50 - 70 % 03/22/2021 5:31 AM T [facility] LYMPHOCYTES % 16.9(L) 18 - 42 % 03/22/2021 5:31 AM T [facility] MONOCYTES % 8.7 2.0 - 11.0 % 03/22/2021 5:31 AM T [facility] EOSINOPHILS 0.8(L) 1.0 - 3.0 % 03/22/2021 5:31 AM T [facility] BASOPHILS 0.4 0.0 - 1.0 % 03/22/2021 5:31 AM T [facility] ABS. NEUTROPHILS TOTAL 6.11 1.69 - 7.81 x10'3/uL 03/22/2021 5:31 AM CDT [facility] 03/22/2021 5:00 AM CDT us Lita Hu MD LABORATORY Final Result [facility] [address] [place] [address], [place] [phone] * (ABNORMAL) BASIC METABOLIC PANEL (03/22/2021 5:00 AM CDT) Pathologist [facility] GLUCOSE 97 70 - 99 MG/DL 03/22/2021 5:44 AM CDT [facility] BUN 6(L) 7 - 18 MG/DL 03/22/2021 5:44 AM CDT [facility] CREATININE S/P/B 0.80 0.7 - 1.3 MG/DL 03/22/2021 5:44 AM CDT [facility] SODIUM S/P/B 139 136 - 145 MMOL/L 03/22/2021 5:44 AM CDT [facility] POTASSIUM S/P/B 3.5 3.5 - 5.1 MMOL/L 03/22/2021 5:44 AM CDT [facility] CHLORIDE S/P/B 101 100 - 108 MMOL/L 03/22/2021 5:44 AM CDT [facility] CO2 28.3 21 - 32 MMOL/L 03/22/2021 5:44 AM CDT [facility] CALCIUM S/P/B 8.6 8.5 - 10.1 MG/DL 03/22/2021 5:44 AM CDT [facility] ANION GAP 9.7 5 - 15 MMOL/L 03/22/2021 5:44 AM CDT [facility] BUN CREATININE RATIO 7.5 6 - 26 03/22/2021 5:44 AM CDT [facility] EGFR NON-AFR. AMER. >90 >90 ML/MIN/1.7 3 M2 03/22/2021 5:44 AM CDT [facility] EGFR AFR. AMER. >90 >90 ML/MIN/1.7 3 M2 03/22/2021 5:44 AM CDT [facility] Comment: NOTE: eGFR is not calculated for patients <18 years of age. This is an estimated GFR (CKD EPI) and should not be used for calculating drug doses. 03/22/2021 5:00 AM CDT us Lita Hu MD LABORATORY Final Result Performing Organization Address City/[facility]/ZIP Co de Phone Number [facility] [address] [place] [address], * (ABNORMAL) PHOSPHORUS, INORGANIC PHOSPHATE (03/21/2021 2:55 AM CDT) PHOSPHORUS 2.1(L) 2.5 - 4.9 MG/DL 03/21/2021 4:00 AM CDT [facility] 03/21/2021 2:55 AM CDT Lita Hu MD LABORATORY Final Result [facility] [address] [place] [address], [place] [phone] * MAGNESIUM (03/21/2021 2:55 AM CDT) MAGNESIUM 2.0 1.8 - 2.4 MG/DL 03/21/2021 4:00 AM CDT [facility] 03/21/2021 2:55 AM CDT us Lita Hu MD LABORATORY Final Result [facility] [address] [place] [address], [place] [phone] * (ABNORMAL) CBC W/DIFF AUTOMATED (03/21/2021 2:55 AM CDT) [facility] WBC 8.6 4.8 - 10.8 x10'3/uL 03/21/2021 3:55 AM CDT [facility] RBC 3.58(L) 4.50 - 5.90 x10'6/uL 03/21/2021 3:55 AM CDT [facility] HGB 11.6(L) 13.5 - 17.5 G/DL 03/21/2021 3:55 AM CDT [facility] HCT 35.3(L) 41 - 53 % 03/21/2021 3:55 AM CDT [facility] MCV 98.6 80 - 100 FL 03/21/2021 3:55 AM CDT [facility] MCH 32.4 26.0 - 34.0 PG 03/21/2021 3:55 AM CDT [facility] MCHC 32.9 31.0 - 37.0 G/DL 03/21/2021 3:55 AM CDT [facility] RDW 13.6 11.5 - 14.5 % 03/21/2021 3:55 AM CDT [facility] PLT 182 150 - 350 x10'3/uL 03/21/2021 3:55 AM CDT [facility] CBC COMMENT AUTOMATED RBC MORPHOLOGY AND PLATELET EVALUATION NORMAL 03/21/2021 3:55 AM CDT [facility] NEUTROPHILS % 72.6(H) 50 - 70 % 03/21/2021 3:55 AM CDT [facility] LYMPHOCYTES % 19.2 18 - 42 % 03/21/2021 3:55 AM CDT [facility] MONOCYTES % 7.5 2.0 - 11.0 % 03/21/2021 3:55 AM CDT [facility] EOSINOPHILS 0.5(L) 1.0 - 3.0 % 03/21/2021 3:55 AM CDT [facility] BASOPHILS 0.2 0.0 - 1.0 % 03/21/2021 3:55 AM CDT [facility] ABS. NEUTROPHILS TOTAL 6.21 1.69 - 7.81 x10'3/uL 03/21/2021 3:55 AM CDT [facility] 03/21/2021 2:55 AM CDT us Lita Hu MD LABORATORY Final Result [facility] [address] [place] [address], [place] [phone] * (ABNORMAL) BASIC METABOLIC PANEL (03/21/2021 2:55 AM CDT) GLUCOSE 122(H) 70 - 99 MG/DL 03/21/2021 4:06 AM CDT [facility] BUN 9 7 - 18 MG/DL 03/21/2021 4:06 AM CDT [facility] CREATININE S/P/B 0.70 0.7 - 1.3 MG/DL 03/21/2021 4:06 AM CDT [facility] SODIUM S/P/B 140 136 - 145 MMOL/L 03/21/2021 4:06 AM CDT [facility] POTASSIUM S/P/B 3.1(L) 3.5 - 5.1 MMOL/L 03/21/2021 4:06 AM T [facility] CHLORIDE S/P/B 106 100 - 108 MMOL/L 03/21/2021 4:06 AM T [facility] CO2 28.0 21 - 32 MMOL/L 03/21/2021 4:06 AM T [facility] CALCIUM S/P/B 7.7(L) 8.5 - 10.1 MG/DL 03/21/2021 4:06 AM T [facility] ANION GAP 6.0 5 - 15 MMOL/L 03/21/2021 4:06 AM T [facility] BUN CREATININE RATIO 12.9 6 - 26 03/21/2021 4:06 AM T [facility] EGFR NON-AFR. AMER. >90 >90 ML/MIN/1.7 3 M2 03/21/2021 4:06 AM T [facility] EGFR AFR. AMER. >90 >90 ML/MIN/1.7 3 M2 03/21/2021 4:06 AM [facility] Comment: NOTE: eGFR is not calculated for patients <18 years of age. This is an estimated GFR (CKD EPI) and should not be used for calculating drug doses. 03/21/2021 2:55 AM CDT us Lita Hu MD LABORATORY Final Result [facility] [address] [place] [address], [place] [phone] * (ABNORMAL) COMPREHENSIVE METABOLIC PANEL (03/20/2021 5:15 AM CDT) [facility] GLUCOSE 213(H) 70 - 99 MG/DL 03/20/2021 6:01 AM CDT [facility] BUN 17 7 - 18 MG/DL 03/20/2021 6:01 AM [facility] CREATININE S/P/B 0.80 0.7 - 1.3 MG/DL 03/20/2021 6:01 AM [facility] SODIUM S/P/B 142 136 - 145 MMOL/L 03/20/2021 6:01 AM [facility] POTASSIUM S/P/B 3.7 3.5 - 5.1 MMOL/L 03/20/2021 6:01 AM [facility] CHLORIDE S/P/B 108 100 - 108 MMOL/L 03/20/2021 6:01 AM [facility] CO2 29.1 21 - 32 MMOL/L 03/20/2021 6:01 AM [facility] CALCIUM S/P/B 7.6(L) 8.5 - 10.1 MG/DL 03/20/2021 6:01 AM [facility] BILIRUBIN TOTAL S/P/B 0.8 0.2 - 1.2 MG/DL 03/20/2021 6:01 AM [facility] Comment: THIS ASSAY IS NOT RECOMMENDED FOR PATIENTS UNDERGOING TREATMENT WITH ELTROMBOPAG DUE TO THE POTENTIAL FOR FALSELY ELEVATED RESULTS. TOTAL PROTEIN S/P/B 6.4 6.4 - 8.2 G/DL 03/20/2021 6:01 AM [facility] ALBUMIN S/P/B 2.7(L) 3.4 - 5.0 G/DL 03/20/2021 6:01 AM [facility] AST 36 15 - 37 U/L 03/20/2021 6:01 AM [facility] ALT 33 16 - 60 U/L 03/20/2021 6:01 AM [facility] ALKALINE PHOSPHATASE S/P/B 33(L) 50 - 136 U/L 03/20/2021 6:01 AM CDT [facility] ANION GAP 4.9(L) 5 - 15 MMOL/L 03/20/2021 6:01 AM CDT [facility] BUN CREATININE RATIO 21.2 6 - 26 03/20/2021 6:01 AM T [facility] A/G RATIO 0.7(L) 1.0 - 2.0 RATIO 03/20/2021 6:01 AM T [facility] EGFR NON-AFR. AMER. >90 >90 ML/MIN/1.7 3 M2 03/20/2021 6:01 AM CDT [facility] EGFR AFR. AMER. >90 >90 ML/MIN/1.7 3 M2 03/20/2021 6:01 AM T [facility] Comment: NOTE: eGFR is not calculated for patients <18 years of age. This is an estimated GFR (CKD EPI) and should not be used for calculating drug doses. 03/20/2021 5:15 AM CDT us Sean Marquez APRN LABORATORY Final Re sult [facility] [address] [place] [address], * (ABNORMAL) CBC W/DIFF AUTOMATED (03/20/2021 5:15 AM CDT) WBC 11.2(H) 4.8 - 10.8 x10'3/uL 03/20/2021 5:46 AM CDT [facility] RBC 3.44(L) 4.50 - 5.90 x10'6/uL 03/20/2021 5:46 AM CDT [facility] HGB 11.1(L) 13.5 - 17.5 G/DL 03/20/2021 5:46 AM CDT [facility] HCT 34.1(L) 41 - 53 % 03/20/2021 5:46 AM CDT [facility] MCV 99.1 80 - 100 FL 03/20/2021 5:46 AM CDT [facility] MCH 32.3 26.0 - 34.0 PG 03/20/2021 5:46 AM CDT [facility] MCHC 32.6 31.0 - 37.0 G/DL 03/20/2021 5:46 AM CDT [facility] RDW 13.6 11.5 - 14.5 % 03/20/2021 5:46 AM CDT [facility] PLT 165 150 - 350 x10'3/uL 03/20/2021 5:46 AM T [facility] CBC COMMENT AUTOMATED RBC MORPHOLOGY AND PLATELET EVALUATION NORMAL 03/20/2021 5:46 AM CDT [facility] NEUTROPHILS % 80.1(H) 50 - 70 % 03/20/2021 5:46 AM CDT [facility] LYMPHOCYTES % 12.8(L) 18 - 42 % 03/20/2021 5:46 AM CDT [facility] MONOCYTES % 7.0 2.0 - 11.0 % 03/20/2021 5:46 AM CDT [facility] EOSINOPHILS 0.0(L) 1.0 - 3.0 % 03/20/2021 5:46 AM CDT [facility] BASOPHILS 0.1 0.0 - 1.0 % 03/20/2021 5:46 AM CDT [facility] ABS. NEUTROPHILS TOTAL 9.00(H) 1.69 - 7.81 x10'3/uL 03/20/2021 5:46 AM CDT [facility] 03/20/2021 5:15 AM CDT Sean Marquez APRN LABORATORY Final Re sult Performing Organization Address [facility]/ZIP Co de Phone Number [facility] [address] [place] [address], * MAGNESIUM (03/19/2021 5:45 AM CDT) MAGNESIUM 2.0 1.8 - 2.4 MG/DL 03/19/2021 7:12 AM CDT [facility] 03/19/2021 5:45 AM CDT Margarita Sloan MD LABORATORY Final Result Performing Organization Address [facility] Co de Phone Number [facility] [address] [place] [address], [place] [phone] * (ABNORMAL) COMPREHENSIVE METABOLIC PANEL (03/19/2021 5:45 AM CDT) GLUCOSE 153(H) 70 - 99 MG/DL 03/19/2021 7:12 AM CDT [facility] BUN 16 7 - 18 MG/DL 03/19/2021 7:12 AM CDT [facility] CREATININE S/P/B 0.80 0.7 - 1.3 MG/DL 03/19/2021 7:12 AM CDT [facility] SODIUM S/P/B 137 136 - 145 MMOL/L 03/19/2021 7:12 AM CDT [facility] POTASSIUM S/P/B 4.1 3.5 - 5.1 MMOL/L 03/19/2021 7:12 AM CDT [facility] CHLORIDE S/P/B 104 100 - 108 MMOL/L 03/19/2021 7:12 AM [facility] CO2 25.3 21 - 32 MMOL/L 03/19/2021 7:12 AM [facility] CALCIUM S/P/B 7.9(L) 8.5 - 10.1 MG/DL 03/19/2021 7:12 AM [facility] BILIRUBIN TOTAL S/P/B 1.3(H) 0.2 - 1.2 MG/DL 03/19/2021 7:12 AM [facility] Comment: THIS ASSAY IS NOT RECOMMENDED FOR PATIENTS UNDERGOING TREATMENT WITH ELTROMBOPAG DUE TO THE POTENTIAL FOR FALSELY ELEVATED RESULTS. TOTAL PROTEIN S/P/B 6.6 6.4 - 8.2 G/DL 03/19/2021 7:12 AM [facility] ALBUMIN S/P/B 3.0(L) 3.4 - 5.0 G/DL 03/19/2021 7:12 AM [facility] AST 30 15 - 37 U/L 03/19/2021 7:12 AM [facility] ALT 32 16 - 60 U/L 03/19/2021 7:12 AM [facility] ALKALINE PHOSPHATASE S/P/B 31(L) 50 - 136 U/L 03/19/2021 7:12 AM [facility] ANION GAP 7.7 5 - 15 MMOL/L 03/19/2021 7:12 AM [facility] BUN CREATININE RATIO 20.0 6 - 26 03/19/2021 7:12 AM [facility] A/G RATIO 0.8(L) 1.0 - 2.0 RATIO 03/19/2021 7:12 AM CDT [facility] EGFR NON-AFR. AMER. >90 >90 ML/MIN/1.7 3 M2 03/19/2021 7:12 AM CDT [facility] EGFR AFR. AMER. >90 >90 ML/MIN/1.7 3 M2 03/19/2021 7:12 AM CDT [facility] Comment: NOTE: eGFR is not calculated for patients <18 years of age. This is an estimated GFR (CKD EPI) and should not be used for calculating drug doses. 03/19/2021 5:45 AM CDT us Margarita Sloan MD LABORATORY Final Result [facility] [address] [id number], [place] [phone] * (ABNORMAL) CBC W/DIFF AUTOMATED (03/19/2021 5:45 AM CDT) WBC 9.8 4.8 - 10.8 x10'3/uL 03/19/2021 7:03 AM CDT [facility] RBC 3.77(L) 4.50 - 5.90 x10'6/uL 03/19/2021 7:03 AM CDT [facility] HGB 12.0(L) 13.5 - 17.5 G/DL 03/19/2021 7:03 AM CDT [facility] HCT 36.5(L) 41 - 53 % 03/19/2021 7:03 AM CDT [facility] MCV 96.8 80 - 100 FL 03/19/2021 7:03 AM CDT [facility] MCH 31.8 26.0 - 34.0 PG 03/19/2021 7:03 AM CDT [facility] MCHC 32.9 31.0 - 37.0 G/DL 03/19/2021 7:03 AM CDT [facility] RDW 13.3 11.5 - 14.5 % 03/19/2021 7:03 AM CDT [facility] PLT 195 150 - 350 x10'3/uL 03/19/2021 7:03 AM CDT [facility] NEUTROPHILS % 88.7(H) 50 - 70 % 03/19/2021 7:06 AM CDT [facility] LYMPHOCYTES % 6.4(L) 18 - 42 % 03/19/2021 7:06 AM CDT [facility] MONOCYTES % 4.9 2.0 - 11.0 % 03/19/2021 7:06 AM CDT [facility] EOSINOPHILS 0.0(L) 1.0 - 3.0 % 03/19/2021 7:06 AM CDT [facility] BASOPHILS 0.0 0.0 - 1.0 % 03/19/2021 7:06 AM CDT [facility] ABS. NEUTROPHILS TOTAL 8.69(H) 1.69 - 7.81 x10'3/uL 03/19/2021 7:06 AM T [facility] PLT MORPH. 1+ 03/19/2021 7:06 AM CDT [facility] Comment:GIANT PLATELETS RBC MORPHOLOGY NORMAL 03/19/2021 7:06 AM T [facility] 03/19/2021 5:45 AM CDT Margarita Sloan MD LABORATORY Final Result [facility] [address] [place] [address], [place] [phone] * XR CHEST PORTABLE (03/19/2021 1:16 AM [...] DESCRIPTION PERITONEAL FLUID 03/20/2021 9:59 AM CDT [facility] SPECIAL REQUESTS SWAB 03/20/2021 9:59 AM CDT [facility] GRAM STAIN RESULT NO WHITE BLOOD CELLS SEEN 03/19/2021 12:10 PM CDT [facility] GRAM STAIN RESULT NO ORGANISMS SEEN 03/19/2021 12:10 PM CDT [facility] CULTURE RESULT SPARSE GROWTH OF ENTEROBACTER CLOACAE COMPLEX (A) 03/24/2021 12:36 PM CDT [facility] CULTURE RESULT SPARSE GROWTH OF BACTEROIDES THETAIOTAOMICRON BETA LACTAMASE POSITIVE SUSCEPTIBILTY NOT ROUTINELY PERFORMED. SAVING ISOLATE FOR 5 DAYS. CONTACT MICROBIOLOGY DEPARTMENT IF FURTHER WORKUP IS INDICATED. (A) 03/24/2021 12:36 PM CDT [facility] CULTURE RESULT NOTE: ANAEROBIC CULTURES ARE ROUTINELY SCREENED FOR BOTH AEROBIC AND ANAEROBIC ORGANISMS. 03/24/2021 12:36 PM CDT [facility] Body fluid specimen (specimen) PERITONEAL [...] MICROBIOLOGY - GENERAL ORDER ZAMZAM Final Result [facility] [address] [place] [address], [place] [phone] * TYPE & SCREEN (03/18/2021 2:33 PM CDT) ABO/RH O POSITIVE 03/18/2021 3:52 PM CDT [facility] ANTIBODY SCREEN NEGATIVE 03/18/2021 4:14 PM CDT [facility] SAMPLE EXPIRATION 03/21/2021,2 359 03/18/2021 3:52 PM CDT [facility] 03/18/2021 2:33 PM CDT us Margarita Sloan MD BLOOD BANK TEST ORDERABLES F inal Result [facility] [address] [place] [address], * Pathology (03/18/2021 7:06 AM CDT) COPATH REPORT ?[facility] ? [address] [facility] ?[place] [address] ? [phone] ? Department of Pathology ? Pathology Report ? Surgical Pathology Report Patient Name: MANDIE COTTER ? : 1955 (Age: 65) ? Location: [id number] Gender: M ?Collected Date: 03/18/2021 Med Rec #: [id number] ?Date Received: 03/19/2021 Date Reported: 03/22/2021 Provider: [...] lymph nodes ?SO/plb :pb Billing Fee Code(s): 56045 [facility] Tissue specimen (specimen) COLON STRUCTURE / Unknown 03/18/2021 4:54 PM CDT Comment:No formalin on speci men us Margarita Sloan MD PATHOLOGY/CYTOLOGY ORDERABLE S Final Result [facility] [address] [place] [address], documented in this encounter Visit Diagnoses Not on filedocumented in this encounter Admitting Diagnoses Diagnosis Perforated diverticulum documented in this encounter Administered Medications Inactive Administered Medications - up to 3 most recent administrations Medication Order MAR Action Action Date Dose Rate Site BUpivacaine-EPINEPHrin e PF 0.5% -[id number] injection As needed, Starting on Yamilex 03/18/21 at 1524, Until Yamilex 03/18/21 at 1845, Intra-Op Given 03/18/2021 3:24 PM CDT 8 mLs Incision Site ceFAZolin (ANCEF) in NS 1000 mL irrigation solution As needed, Starting on Yamilex 03/18/21 at 1542, Until Yamilex 03/18/21 at 1845, Intra-Op Given 03/18/2021 3:42 [...] Rinaldi RN)1346 (New Bag - Provider: Violet iRnaldi RN)1750 (Infusion Stop Time - Provider: Violet [...] RN)1156 (Infusion Stop Time - Provider: Tonja Moarles RN)1157 (New Bag - Provider: Tonja Morales [...] (COMPLETED) documented in this encounter Care Teams Felled Seam Operator Relationship Specialty Start Date End Date Jeremy Castanon MD PCP - General INTERNAL MEDICINE 01/15/20 02/09/23 documented as of this encounter
--- OUTSIDE RECORDS SUMMARY | 2024-11-02 09:19 | XMS_ITS | Encounter Summary ---
Author Organization [facility] Address [address] [place] [address]. [place] [address] [place] [address] Care Team Providers Care Scanning Coordinator Name Role Phone Lorie Chan MD Primary Care Provider [phone] Encounter Details Date Type Department Care Team [...] on file Legal Sex Male 9:58 PM AQUATIC BIOLOGIST Gender Identity Not on file Sexual Orientation Not on file COVID-19 Exposure Response Date Recorded In the last month, have you been in contact with someone who was confirmed or suspected to have Coronavirus / COVID-19? No / Unsure 12/17/2020 3:26 PM AQUATIC BIOLOGIST documented as of this encounter Plan of Treatment Upcoming Encounters Date Type Department Care Team (Late st Contact Info) Description 01/27/2025 7:00 AM CDT Office Visit [facility] Family & Internal Medicine [facility] [address] [place] [address] [place] [address] [place] [address] 10/22/2025 9:15 AM AQUATIC BIOLOGIST Office Visit [facility] [address] [place] [address] Mily Gan MD [facility] [address] [place] [address] documented as of this encounter Visit Diagnoses Not on filedocumented in this encounter Care Teams Scanning Coordinator Relationship Specialty Start Date End Date Lorie Chan MD PCP - General INTERNAL MEDICINE 01/15/20 02/09/23 documented as of this encounter
--- OUTSIDE RECORDS SUMMARY | 2024-11-02 09:20 | XMS_ITS | Encounter Summary ---
Author Organization [facility] Address [address] [place] [address]. [place], [place] [address] [place] [address] Care Team Providers Care Electric Operator Name Role Phone Unavailable Primary Care [...] file Legal Sex Male 9:58 PM CAR SALESMAN Gender Identity Not on file Sexual Orientation Not on file documented as of this encounter Plan of Treatment Upcoming Encounters Date Type Department Care Team (Late st Contact Info) Description 01/27/2025 7:00 AM CDT Office Visit [facility] Medical Group Family & Internal Medicine [facility] [address] [place] [address] [place] [address] [place], [place] [phone] 10/22/2025 9:15 AM CAR SALESMAN Office Visit [facility] [phone] Mily Gan MD [address] [phone] documented as of this encounter Procedures Procedure Name Priority Date/Time Associated Diagnosis Comments ECG GENERIC (SCAN ORDER) Routine 09/20/2019 documented in this encounter Results * ECG (09/20/2019) us Documents Scanned SCANNING Final Result [facility] [address] [address] documented in this encounter Visit Diagnoses Not on filedocumented in this encounter
--- OUTSIDE RECORDS SUMMARY | 2024-11-02 09:20 | XMS_ITS | Encounter Summary ---
Author Organization [facility] Address [address] [place] [address]. [place] [address] [place] [address] Care Team Providers Care Contracting Executive Name Role Phone Lorie Chan MD Primary Care Provider [phone] Reason for Visit * Reason Comments Lab [...] on file Legal Sex Male 9:58 PM CARD HANGER Gender Identity Not on file Sexual Orientation Not on file documented as of this encounter Plan of Treatment Upcoming Encounters Date Type Department Care Team (Late st Contact Info) Description 01/27/2025 7:00 AM CDT Office Visit [facility] Medical [facility] Family & Internal Medicine - [address] [phone] Ilir Nelson PA [address] [place] [address] 10/22/2025 9:15 AM CARD HANGER Office Visit [facility] [phone] Mily Gan MD [facility] [address] [place] [address] documented as of this encounter Procedures Procedure Name Priority Date/Time Associated Diagnosis Comments OUTSIDE LAB (SCAN ORDER) Routine 11/25/2019 documented in this encounter Results * OUTSIDE LAB (11/25/2019) 11/25/2019 us Documents Scanned SCANNING Edited Result - Final [facility] documented in this encounter Visit Diagnoses Not on filedocumented in this encounter Care Teams Contracting Executive Relationship Specialty Start Date End Date Lorie Chan MD PCP - General INTERNAL MEDICINE 01/15/20 02/09/23 documented as of this encounter
--- OUTSIDE RECORDS SUMMARY | 2024-11-02 09:20 | XMS_ITS | Encounter Summary ---
Author Organization [facility] Address [address] [place] [address]. [place], [place] [address] [place] [address] Care Team Providers Care Au Pair Name Role Phone Unavailable Primary Care Provider Unavailabl e Encounter Details Date Type Department Care Team (Latest Contact Info) Description 10/10/2019 Scan HEALTH INFO SRVCS Scanned, Documents Social History Tobacco Use Types Packs/Day Years Used Date Smoking Tobacco: Never Assessed Sex and Gender Information Value Date Recorded Sex Assigned at Not on file Legal Sex Male 9:58 PM WOOD HACKER Gender Identity Not on file Sexual Orientation Not on file documented as of this encounter Plan of Treatment Upcoming Encounters Date Type Department Care Team (Late st Contact Info) Description 01/27/2025 7:00 AM CDT Office Visit [facility] Medical Group Family & Internal Medicine - [place] [address] [place] [phone] [place] [address] [place] [address] 10/22/2025 9:15 AM WOOD HACKER [facility] [phone] Mily Gan MD [place] [address] [place] [address] documented as of this encounter Visit Diagnoses Not on filedocumented in this encounter
--- OUTSIDE RECORDS SUMMARY | 2024-11-02 09:20 | XMS_ITS | Encounter Summary ---
Author Organization [facility] Address [address] [place] [address]. [place], [place] [address] [place] [address] Care Team Providers Care Educator Senior Clinical Name Role Phone Unavailable Primary Care Provider Unavailabl e Encounter Details Date Type Department Care Team (Latest Contact Info) Description 09/25/2019 Scan HEALTH INFO SRVCS Scanned, Documents Social History Tobacco Use Types Packs/Day Years Used Date Smoking Tobacco: Never Assessed Sex and Gender Information Value Date Recorded Sex Assigned at Not on file Legal Sex Male 9:58 PM MOLECULAR TECHNOLOGIST Gender Identity Not on file Sexual Orientation Not on file documented as of this encounter Plan of Treatment Upcoming Encounters Date Type Department Care Team (Late st Contact Info) Description 01/27/2025 7:00 AM CDT Office Visit [facility] Medical Group Family & Internal Medicine - [place] [address] [place] [phone] [place] [address] [place] [address] 10/22/2025 9:15 AM MOLECULAR TECHNOLOGIST Office Visit [facility] [phone] Mily Gan MD [place] [address] [place] [address] documented as of this encounter Visit Diagnoses Not on filedocumented in this encounter
--- OUTSIDE RECORDS SUMMARY | 2024-11-02 09:20 | XMS_ITS | Encounter Summary ---
Author Organization [facility] Address [address] [place] [address]. [place], [place] [address] [place] [address] Care Team Providers Care Classified Advertising Supervisor Name Role Phone Unavailable Primary Care Provider Unavailabl e Encounter Details Date Type Department Care Team (Latest Contact Info) Description 12/02/2019 Scan HEALTH INFO SRVCS Scanned, Documents Social History Tobacco Use Types Packs/Day Years Used Date Smoking Tobacco: Never Assessed Sex and Gender Information Value Date Recorded Sex Assigned at Not on file Legal Sex Male 9:58 PM WIRE FRAME LAMPSHADE MAKER Gender Identity Not on file Sexual Orientation Not on file documented as of this encounter Plan of Treatment Upcoming Encounters Date Type Department Care Team (Late st Contact Info) Description 01/27/2025 7:00 AM CDT Office Visit [facility] Medical Group Family & Internal Medicine - [place] [address] [place] [phone] [place] [address] [place] [address] 10/22/2025 9:15 AM WIRE FRAME LAMPSHADE MAKER Office Visit [facility] [phone] Mily Gan MD [place] [address] [place] [address] documented as of this encounter Visit Diagnoses Not on filedocumented in this encounter
--- OUTSIDE RECORDS SUMMARY | 2024-11-02 09:21 | XMS_ITS | Encounter Summary ---
Author Organization [facility] Address [address] [place] [address]. [place], [place] [address] [place] [address] Care Team Providers Care Casino Runner Name Role Phone Unavailable Primary Care Provider Unavailabl e Encounter Details Date Type Department Care Team (Latest Contact Info) Description 12/07/2015 Scan HEALTH INFO SRVCS Scanned, Documents Social History Tobacco Use Types Packs/Day Years Used Date Smoking Tobacco: Never Assessed Sex and Gender Information Value Date Recorded Sex Assigned at Not on file Legal Sex Male 9:58 PM HAND CARVER Gender Identity Not on file Sexual Orientation Not on file documented as of this encounter Plan of Treatment Upcoming Encounters Date Type Department Care Team (Late st Contact Info) Description 01/27/2025 7:00 AM CDT Office Visit [facility] Medical Group Family & Internal Medicine - [place] [address] [place] [phone] [place] [address] [place] [address] 10/22/2025 9:15 AM HAND CARVER Office Visit [facility] [phone] Mily Gan MD [place] [address] [place] [address] documented as of this encounter Visit Diagnoses Not on filedocumented in this encounter
--- OUTSIDE RECORDS SUMMARY | 2024-11-02 09:21 | XMS_ITS | Encounter Summary ---
Author Organization [facility] Address [address] [place] [address]. [place], [place] [address] [place] [address] Care Team Providers Care Optic Fibre Drawer Name Role Phone Unavailable Primary Care Provider Unavailabl e Encounter Details Date Type Department Care Team (Latest Contact Info) Description 04/26/2018 Scan HEALTH INFO SRVCS Scanned, Documents Social History Tobacco Use Types Packs/Day Years Used Date Smoking Tobacco: Never Assessed Sex and Gender Information Value Date Recorded Sex Assigned at Not on file Legal Sex Male 9:58 PM HAND TOOL FILER Gender Identity Not on file Sexual Orientation Not on file documented as of this encounter Plan of Treatment Upcoming Encounters Date Type Department Care Team (Late st Contact Info) Description 01/27/2025 7:00 AM CDT Office Visit [facility] Medical Group Family & Internal Medicine - [place] [address] [place] [phone] [place] [address] [place] [address] 10/22/2025 9:15 AM HAND TOOL FILER Office Visit [facility] [phone] Mily Gan MD [place] [address] [place] [address] documented as of this encounter Visit Diagnoses Not on filedocumented in this encounter
--- OUTSIDE RECORDS SUMMARY | 2024-11-02 09:21 | XMS_ITS | Encounter Summary ---
Author Organization [facility] Address [address] [place] [address]. [place] [address] [place] [address] Care Team Providers Care Learning Support Services Director Name Role Phone Unavailable Primary Care Provider [...] on file Legal Sex Male 9:58 PM PURCHASING INTERNSHIP Gender Identity Not on file Sexual Orientation Not on file documented as of this encounter Plan of Treatment Upcoming Encounters Date Type Department Care Team (Late Contact Info) Description 01/27/2025 7:00 AM CDT [facility] Internal Medicine - [place] [address] [place] [phone] [place] [address] [place], [place] [phone] 10/22/2025 9:15 AM PURCHASING INTERNSHIP Office Visit [facility] [phone] Mily Gan MD [place] [address] [place], [place] [phone] documented as of this encounter Procedures Procedure Name Priority Date/Time Associated Diagnosis Comments OUTSIDE LAB (SCAN ORDER) Routine 11/27/2018 OUTSIDE LAB (SCAN ORDER) Routine 11/27/2018 OUTSIDE LAB (SCAN ORDER) Routine 11/27/2018 OUTSIDE LAB (SCAN ORDER) Routine 11/27/2018 documented in this encounter Results * OUTSIDE LAB (11/27/2018) URIC ACID 6.4 4.0 - 8.0 mg/dL [facility] 11/27/2018 us Documents Scanned SCANNING Edited Result - Final Performing Organization Address [facility] Co de Phone Number [address] [address] * OUTSIDE LAB (11/27/2018) 11/27/2018 us Documents Scanned SCANNING Edited Result - Final Performing Organization Address [facility]/ZIP Co de Phone Number [address] [address] * OUTSIDE LAB (11/27/2018) 11/27/2018 us Documents Scanned SCANNING Edited Result - Final Performing Organization Address [facility]/ZIP Co de Phone Number [address] [address] * OUTSIDE LAB (11/27/2018) 11/27/2018 us Documents Scanned SCANNING Edited Result - Final Performing Organization Address [facility]/ZIP Co de Phone Number [address] [address] documented in this encounter Visit Diagnoses Not on filedocumented in this encounter
--- OUTSIDE RECORDS SUMMARY | 2024-11-02 09:21 | XMS_ITS | Encounter Summary ---
Author Organization [facility] Address [address] [place] [address]. [place], [place] [address] [place] [address] Care Team Providers Care Computer Technical Support Specialist Name Role Phone Unavailable Primary Care Provider Unavailabl e Encounter Details Date Type Department Care Team (Late st Contact Info) Description 12/20/2016 Abstract [facility] [address] [place], [place] [address] Ria Joiner MD [address] [address] Social History Tobacco Use Types Packs/Day Years Used Date Smoking Tobacco: Never Assessed Sex and Gender Information Value Date Recorded Sex Assigned at Not on file Legal Sex Male 9:58 PM HEAT TREAT TECHNICIAN Gender Identity Not on file Sexual Orientation Not on file documented as of this encounter Plan of Treatment Upcoming Encounters Date Type Department Care Team (Late st Contact Info) Description 01/27/2025 7:00 AM CDT Office Visit [facility] Medical Group Family & Internal Medicine [address] [phone] Ilir Nelson PA [address] [place] [address] 10/22/2025 9:15 AM HEAT TREAT TECHNICIAN Office Visit [facility] [address] [address] Mily Gan MD [address] [address] documented as of this encounter Visit Diagnoses Diagnosis Encounter for preprocedural laboratory examination Pre-procedural laboratory examination documented in this encounter
--- OUTSIDE RECORDS SUMMARY | 2024-11-02 09:21 | XMS_ITS | Encounter Summary ---
Author Organization [facility] Address [address] [place] [address]. [place], [place] [address] [place] [address] Care Team Providers Care Lithograph Press Operator Tinware Name Role Phone Unavailable Primary Care Provider Unavailabl e Encounter Details Date Type Department Care Team (Latest Contact Info) Description 03/19/2015 Scan HEALTH INFO SRVCS Scanned, Documents Social History Tobacco Use Types Packs/Day Years Used Date Smoking Tobacco: Never Assessed Sex and Gender Information Value Date Recorded Sex Assigned at Not on file Legal Sex Male 9:58 PM TECHNICIAN TELECOMMUNICATION SYSTEMS Gender Identity Not on file Sexual Orientation Not on file documented as of this encounter Plan of Treatment Upcoming Encounters Date Type Department Care Team (Late st Contact Info) Description 01/27/2025 7:00 AM CDT Office Visit [facility] Medical Group Family & Internal Medicine - [place] [address] [place] [phone] [place] Nelson [place] [phone] [place] [address] 10/22/2025 9:15 AM TECHNICIAN TELECOMMUNICATION SYSTEMS Office Visit [facility] [address] Mily Gan MD [place] [address] [place] [address] documented as of this encounter Visit Diagnoses Not on filedocumented in this encounter
--- OUTSIDE RECORDS SUMMARY | 2024-11-02 09:21 | XMS_ITS | Encounter Summary ---
Author Organization [facility] Address [address] [place] [address]. [place], [place] [address] [place] [address] Care Team Providers Care Topographical Surveyor Name Role Phone Lorie hCan MD Primary Care Provider [phone] Moraima Toledo RN Unavailable [phone] Moraima Toledo RN Unavailable [phone] Candis Bee NP Primary Care Provider [phone] Ilir Nelson Primary Care Provider [phone] Encounter Details Date Type Department Care Team (Late st Contact Info) Description 08/26/[address] [facility] [address] [place], [place] [address] , Generic Conversion, Social History Tobacco Use Types Packs/Day Years Used Date Smoking Tobacco: Never Assessed Sex and Gender Information Value Date Recorded Sex Assigned at Not on file Legal Sex Male 9:58 PM STAFF DEVELOPMENT NURSE Gender Identity Not on file Sexual Orientation Not on file documented as of this encounter Plan of Treatment Upcoming Encounters Date Type Department Care Team (Late st Contact Info) Description 01/27/2025 7:00 AM CDT Office Visit [facility] Medical Group Family & Internal Medicine [address] [address] Ilir Nelson PA [address] [place] [address] 10/22/2025 9:15 AM STAFF DEVELOPMENT NURSE Office Visit [facility] [phone] Mily Gan MD [facility] [address] [place], [place] 422[address] documented as of this encounter Visit Diagnoses Not on filedocumented in this encounter Additional Health Concerns Infection Onset Date Last Indicated Resolved Time COVID-19 Rule Out 03/07/2021 03/07/2021 03/08/2021 2:56 PM CDT documented as of this encounter Care Teams Topographical Surveyor Relationship Specialty Start Date End Date Lorie Chan MD PCP - General INTERNAL MEDICINE 01/15/20 02/09/23 [place] [address] [facility], [address] [place] [address] PCP - General Nurse Practitioner Family 02/10/23 01/05/24 [place] [address] [place] [address] PCP - General Physician [employer] [facility] 01/06/24 Moraima Toledo, RN [address] [place] [address] Smoke And Flame Specialist (Ambulatory) REGISTERED NURSE 03/19/21 03/30/21 Moraima Toledo RN [address] [place] [address] Smoke And Flame Specialist (Ambulatory) REGISTERED NURSE 09/23/21 10/18/21 documented as of this encounter
--- OUTSIDE RECORDS SUMMARY | 2024-11-02 09:21 | XMS_ITS | Encounter Summary ---
Author Organization [facility] Address [address] [place] [address]. [place] [address] [place] [address] Care Team Providers Care Wood Boatbuilder Apprentice Name Role Phone Unavailable Primary Care Provider Unavailabl e Encounter Details Date Type Department Care Team (Late st Contact Info) Description 12/20/[address] [address] [place], [place] [address] Ria Joiner MD [address] [id number] Social History Tobacco Use Types Packs/Day Years Used Date Smoking Tobacco: Never Assessed Sex and Gender Information Value Date Recorded Sex Assigned at Not on file Legal Sex Male 9:58 PM SLATER APPRENTICE Gender Identity Not on file Sexual Orientation Not on file documented as of this encounter Plan of Treatment Upcoming Encounters Date Type Department Care Team (Late st Contact Info) Description 01/27/2025 7:00 AM CDT Office Visit [facility] Family & Internal Medicine [address] [address] Ilir Nelson PA [address] [place] [address] 10/22/2025 9:15 AM SLATER APPRENTICE Office Visit [facility] [address] [address] Mily Gan MD [address] [address] documented as of this encounter Visit Diagnoses Diagnosis Primary osteoarthritis of left knee Primary localized osteoarthrosis, lower leg documented in this encounter
--- OUTSIDE RECORDS SUMMARY | 2024-11-02 09:21 | XMS_ITS | Encounter Summary ---
Author Organization [facility] Address [address] [place] [address]. [place], [place] [address] [place] [address] Care Team Providers Care Physician Assistant Certified Name Role Phone Lorie Chan MD Primary Care Provider + [phone] Moraima Toledo RN Unavailable [phone] Moraima Toledo RN Unavailable [phone] Candis Bee NP Primary Care Provider [phone] Ilir Nelson Primary Care Provider [phone] Encounter Details Date Type Department Care Team (Late st Contact Info) Description 12/26/[address] [facility] Conversion [address] [place], [place] [address] , Generic Conversion, Social History Tobacco Use Types Packs/Day Years Used Date Smoking Tobacco: Never Assessed Sex and Gender Information Value Date Recorded Sex Assigned at Not on file Legal Sex Male 9:58 PM DROP HAMMER MECHANIC Gender Identity Not on file Sexual Orientation Not on file documented as of this encounter Plan of Treatment Upcoming Encounters Date Type Department Care Team (Late st Contact Info) Description 01/27/2025 7:00 AM CDT Office Visit [facility] Medical Group Family & Internal Medicine [address] [address] Ilir Nelson PA [address] [place] [address] 10/22/2025 9:15 AM DROP HAMMER MECHANIC Office Visit [facility] [address] Mily Gan MD [facility] [address] [place], [place] [address] documented as of this encounter Visit Diagnoses Not on filedocumented in this encounter Additional Health Concerns Infection Onset Date Last Indicated Resolved Time COVID-19 Rule Out 03/07/2021 03/07/2021 03/08/2021 2:56 PM CDT documented as of this encounter Care Teams Physician Assistant Certified Relationship Specialty Start Date End Date Lorie Chan MD PCP - General INTERNAL MEDICINE 01/15/20 02/09/23 [place] [address] [facility], [address] [place] [address] PCP - General Nurse Practitioner Family 02/10/23 01/05/24 [place] [address] [place] [address] PCP - General Physician Internal Auditor Medical 01/06/24 Moraiam Toledo, RN [address] [place] [address] Director Weights And Measures (Ambulatory) REGISTERED NURSE 03/19/21 03/30/21 Moraima Toledo RN [address] [place] [address] Director Weights And Measures (Ambulatory) REGISTERED NURSE 09/23/21 10/18/21 documented as of this encounter
--- OUTSIDE RECORDS SUMMARY | 2024-11-02 09:21 | XMS_ITS | Encounter Summary ---
Author Organization [facility] Address [address] [place] [address]. [place], [place] [address] [place] [address] Care Team Providers Care Adjunct Latin Professor Name Role Phone Unavailable Primary Care Provider Unavailabl e Encounter Details Date Type Department Care Team (Latest Contact Info) Description 03/11/2016 Scan HEALTH INFO SRVCS Scanned, Documents Social History Tobacco Use Types Packs/Day Years Used Date Smoking Tobacco: Never Assessed Sex and Gender Information Value Date Recorded Sex Assigned at Not on file Legal Sex Male 9:58 PM CARDROOM SUPERVISOR Gender Identity Not on file Sexual Orientation Not on file documented as of this encounter Plan of Treatment Upcoming Encounters Date Type Department Care Team (Late st Contact Info) Description 01/27/2025 7:00 AM CDT Office Visit [facility] Medical [facility] Family & Internal Medicine - [place] [address] [place] [address] [place] [address] [place] [address] 10/22/2025 9:15 AM CARDROOM SUPERVISOR Office Visit [facility] [phone] Mily Gan MD [place] [place] [address] documented as of this encounter Visit Diagnoses Not on filedocumented in this encounter
--- OUTSIDE RECORDS SUMMARY | 2024-11-02 09:21 | XMS_ITS | Encounter Summary ---
Author Organization [facility] Address [address] [place] [address]. [place], [place] [address] [place] [address] Care Team Providers Care Cooling Pipe Inspector Name Role Phone Unavailable Primary Care Provider [...] on file Legal Sex Male 9:58 PM LARGE ANIMAL HUSBANDRY TECHNICIAN Gender Identity Not on file Sexual Orientation Not on file documented as of this encounter Plan of Treatment Upcoming Encounters Date Type Department Care Team (Late st Contact Info) Description 01/27/2025 7:00 AM CDT Office Visit [facility] Medical Group Family & Internal Medicine [facility] [address] [place] [address] [place] [address] [place], [place] [phone] 10/22/2025 9:15 AM LARGE ANIMAL HUSBANDRY TECHNICIAN Office Visit [facility] [phone] Mily Gan MD [address] [id number] documented as of this encounter Procedures Procedure Name Priority Date/Time Associated Diagnosis Comments IMAGE GENERIC Routine 10/15/2014 documented in this encounter Results * IMAGE STUDY (10/15/2014) Anatomical Region Laterality Modality Other us Documents Scanned SCANNING Final Result documented in this encounter Visit Diagnoses Not on filedocumented in this encounter
--- OUTSIDE RECORDS SUMMARY | 2024-11-02 09:21 | XMS_ITS | Encounter Summary ---
Author Organization [facility] Address [address] [place] [address]. [place], [place] [address] [place] [address] Care Team Providers Care Music Industry Internship Name Role Phone Unavailable Primary Care Provider [...] on file Legal Sex Male 9:58 PM NATIONAL COVERAGE SPECIALIST Gender Identity Not on file Sexual Orientation Not on file documented as of this encounter Plan of Treatment Upcoming Encounters Date Type Department Care Team (Late st Contact Info) Description 01/27/2025 7:00 AM CDT Office Visit [facility] Medical Group Family & Internal Medicine [facility] [address] [place] [address] [place] [address] [place], [place] [phone] 10/22/2025 9:15 AM NATIONAL COVERAGE SPECIALIST Office Visit [facility] [phone] Mily Gan MD [address] [phone] documented as of this encounter Procedures Procedure Name Priority Date/Time Associated Diagnosis Comments OUTSIDE LAB (SCAN ORDER) Routine 02/15/2019 documented in this encounter Results * OUTSIDE LAB (02/15/2019) HGB A1C 5.6 <=5.7 [facility] 02/15/2019 us Documents Scanned SCANNING Edited Result - Final [facility] [address] [place] [address] documented in this encounter Visit Diagnoses Not on filedocumented in this encounter
--- OUTSIDE RECORDS SUMMARY | 2024-11-02 09:21 | XMS_ITS | Encounter Summary ---
Author Organization [facility] Address [address] [place] [address]. [place], [place] [address] [place] [address] Care Team Providers Care Forest Botany Instructor Name Role Phone Unavailable Primary Care Provider Unavailabl e Encounter Details Date Type Department Care Team (Latest Contact Info) Description 06/19/2015 Scan HEALTH INFO SRVCS Scanned, Documents Social History Tobacco Use Types Packs/Day Years Used Date Smoking Tobacco: Never Assessed Sex and Gender Information Value Date Recorded Sex Assigned at Not on file Legal Sex Male 9:58 PM SOLID PROPELLANT PROCESSOR Gender Identity Not on file Sexual Orientation Not on file documented as of this encounter Plan of Treatment Upcoming Encounters Date Type Department Care Team (Late st Contact Info) Description 01/27/2025 7:00 AM CDT Office Visit [facility] Medical Group Family & Internal Medicine - [place] [address] [place] [address] [place] [address] [place] [address] 10/22/2025 9:15 AM SOLID PROPELLANT PROCESSOR Office Visit [facility] [phone] Mily Gan MD [address] [place] [address] documented as of this encounter Visit Diagnoses Not on filedocumented in this encounter
--- OUTSIDE RECORDS SUMMARY | 2024-11-02 09:21 | XMS_ITS | Encounter Summary ---
Author Organization [facility] Address [address] [place] [address]. [place], [place] [address] [place] [address] Care Team Providers Care Rubber Tire Curer Name Role Phone Unavailable Primary Care Provider Unavailabl e Encounter Details Date Type Department Care Team (Latest Contact Info) Description 11/08/2018 Scan HEALTH INFO SRVCS Scanned, Documents Social History Tobacco Use Types Packs/Day Years Used Date Smoking Tobacco: Never Assessed Sex and Gender Information Value Date Recorded Sex Assigned at Not on file Legal Sex Male 9:58 PM FRONT LOAD TRASH TRUCK DRIVER Gender Identity Not on file Sexual Orientation Not on file documented as of this encounter Plan of Treatment Upcoming Encounters Date Type Department Care Team (Late st Contact Info) Description 01/27/2025 7:00 AM CDT Office Visit [facility] Medical Group Family & Internal Medicine - [place] [address] [place] [address] [place] [address] [place] [address] 10/22/2025 9:15 AM FRONT LOAD TRASH TRUCK DRIVER Office Visit [facility]-[address] [phone] Mily Gan MD [address] [place] [address] documented as of this encounter Visit Diagnoses Not on filedocumented in this encounter
--- OUTSIDE RECORDS SUMMARY | 2024-11-02 09:21 | XMS_ITS | Encounter Summary ---
Author Organization [facility] Address [address] [place] [address]. [place], [place] [address] [place] [address] Care Team Providers Care Office Analyst Name Role Phone Unavailable Primary Care Provider Unavailabl e Encounter Details Date Type Department Care Team (Latest Contact Info) Description 12/05/2014 Scan HEALTH INFO SRVCS Scanned, Documents Social History Tobacco Use Types Packs/Day Years Used Date Smoking Tobacco: Never Assessed Sex and Gender Information Value Date Recorded Sex Assigned at Not on file Legal Sex Male 9:58 PM WELFARE INVESTIGATOR Gender Identity Not on file Sexual Orientation Not on file documented as of this encounter Plan of Treatment Upcoming Encounters Date Type Department Care Team (Late st Contact Info) Description 01/27/2025 7:00 AM CDT Office Visit [facility] Medical Group Family & Internal Medicine - [place] [address] [place] [address] [place] [address] [place] [address] 10/22/2025 9:15 AM WELFARE INVESTIGATOR Office Visit [facility] [phone] Mily Gan MD [address] [place] [address] documented as of this encounter Visit Diagnoses Not on filedocumented in this encounter
--- OUTSIDE RECORDS SUMMARY | 2024-11-02 09:21 | XMS_ITS | Encounter Summary ---
Author Organization [facility] Address [address] [place] [address]. [place], [place] [address] [place] [address] Care Team Providers Care Roll Machine Operator Name Role Phone Unavailable Primary Care Provider Unavailabl e Encounter Details Date Type Department Care Team (Late st Contact Info) Description 04/23/[address] [facility] [address] [place] [address] [place], [place] 579931 Cody Swenson MD [address] [place] [address] Social History Tobacco Use Types Packs/Day Years Used Date Smoking Tobacco: Never Assessed Sex and Gender Information Value Date Recorded Sex Assigned at Not on file Legal Sex Male 9:58 PM SILK SPOTTER Gender Identity Not on file Sexual Orientation Not on file documented as of this encounter Plan of Treatment Upcoming Encounters Date Type Department Care Team (Late Contact Info) Description 01/27/2025 7:00 AM CDT Office Visit [facility] Family & Internal Medicine [facility] [address] [place] [address] [place] [address] [place] [address] 10/22/2025 9:15 AM SILK SPOTTER Office Visit [facility] [phone] Mily Gan MD [address] [place] [address] documented as of this encounter Visit Diagnoses Diagnosis Localized osteoarthrosis, lower leg Localized osteoarthrosis not specified whether primary or secondary, lower leg documented in this encounter
--- OUTSIDE RECORDS SUMMARY | 2024-11-02 09:21 | XMS_ITS | Encounter Summary ---
Author Organization [facility] Address [address] [place] [address]. [place], [place] [address] [place] [address] Care Team Providers Care Nail Feeder Name Role Phone Unavailable Primary Care Provider Unavailabl e Encounter Details Date Type Department Care Team (Latest Contact Info) Description 12/14/2016 Scan HEALTH INFO SRVCS Scanned, Documents Social History Tobacco Use Types Packs/Day Years Used Date Smoking Tobacco: Never Assessed Sex and Gender Information Value Date Recorded Sex Assigned at Not on file Legal Sex Male 9:58 PM BOARD FILLER Gender Identity Not on file Sexual Orientation Not on file documented as of this encounter Plan of Treatment Upcoming Encounters Date Type Department Care Team (Late st Contact Info) Description 01/27/2025 7:00 AM CDT Office Visit [facility] Medical Group Family & Internal Medicine - [place] [address] [place] [address] [place] [address] [place] [address] 10/22/2025 9:15 AM BOARD FILLER Office Visit [facility]-[address] [phone] Mily aGn MD [place] [address] [place] [address] documented as of this encounter Visit Diagnoses Not on filedocumented in this encounter
--- OUTSIDE RECORDS SUMMARY | 2024-11-02 09:21 | XMS_ITS | Encounter Summary ---
Author Organization [facility] Address [address] [place] [address]. [place], [place] [address] [place] [address] Care Team Providers Care Preschool Assistant Principal Name Role Phone Unavailable Primary Care Provider [...] file Legal Sex Male 9:58 PM DIRECTOR POWER Gender Identity Not on file Sexual Orientation Not on file documented as of this encounter Plan of Treatment Upcoming Encounters Date Type Department Care Team (Late st Contact Info) Description 01/27/2025 7:00 AM CDT Office Visit [facility] Medical Group Family & Internal Medicine - [place] [address] [place] [address] [place] [address] [place] [address] 10/22/2025 9:15 AM DIRECTOR POWER Office Visit [facility] [phone] Mily Gan MD [address] [address] documented as of this encounter Procedures Procedure Name Priority Date/Time Associated Diagnosis Comments OUTSIDE LAB (SCAN ORDER) Routine 11/27/2018 documented in this encounter Results * OUTSIDE LAB (11/27/2018) 11/27/2018 us Documents Scanned SCANNING Edited Result - Final [facility] [address] [address] documented in this encounter Visit Diagnoses Not on filedocumented in this encounter
--- OUTSIDE RECORDS SUMMARY | 2024-11-02 09:21 | XMS_ITS | Encounter Summary ---
Author Organization [facility] Address [address] [place] [address]. [place], [place] [address] [place] [address] Care Team Providers Care Rn Occupational Health Name Role Phone Unavailable Primary Care Provider Unavailabl e Encounter Details Date Type Department Care Team (Latest Contact Info) Description 09/04/2019 Scan HEALTH INFO SRVCS Scanned, Documents Social History Tobacco Use Types Packs/Day Years Used Date Smoking Tobacco: Never Assessed Sex and Gender Information Value Date Recorded Sex Assigned at Not on file Legal Sex Male 9:58 PM RESEARCH LABORATORY MANAGER Gender Identity Not on file Sexual Orientation Not on file documented as of this encounter Plan of Treatment Upcoming Encounters Date Type Department Care Team (Late st Contact Info) Description 01/27/2025 7:00 AM CDT Office Visit [facility] Medical Group Family & Internal Medicine - [place] [address] [place] [address] [place] [address] [place] [address] 10/22/2025 9:15 AM RESEARCH LABORATORY MANAGER Office Visit [facility]-[address] [phone] Mily Gan MD [address] [address] [place] [address] documented as of this encounter Visit Diagnoses Not on filedocumented in this encounter
--- OUTSIDE RECORDS SUMMARY | 2024-11-02 09:21 | XMS_ITS | Encounter Summary ---
Author Organization [facility] Address [address] [place] [address]. [place], [place] [address] [place] [address] Care Team Providers Care Offset Printing Operator Name Role Phone Unavailable Primary Care Provider Unavailabl e Encounter Details Date Type Department Care Team (Late st Contact Info) Description 04/18/2014 Abstract [facility] [address] [place], [place] 00[address] Cody Swenson MD [address] [place] [address] Social History Tobacco Use Types Packs/Day Years Used Date Smoking Tobacco: Never Assessed Sex and Gender Information Value Date Recorded Sex Assigned at Not on file Legal Sex Male 9:58 PM AIRCRAFT LAYOUT WORKER Gender Identity Not on file Sexual Orientation Not on file documented as of this encounter Plan of Treatment Upcoming Encounters Date Type Department Care Team (Late st Contact Info) Description 01/27/2025 7:00 AM CDT Office Visit [facility] Medical Group Family & Internal Medicine [address] [address] Ilir Nelson PA [address] [place] [address] 10/22/2025 9:15 AM AIRCRAFT LAYOUT WORKER Office Visit [facility] [address] [address] Mily Gan MD [place] [address] [place] [address] documented as of this encounter Visit Diagnoses Diagnosis Pre-operative examination Preoperative examination, unspecified documented in this encounter
--- OUTSIDE RECORDS SUMMARY | 2024-11-02 09:21 | XMS_ITS | Encounter Summary ---
Author Organization [facility] Address [address] [place] [address]. [place], [place] [address] [place] [address] Care Team Providers Care Career Manager Name Role Phone Unavailable Primary Care Provider Unavailabl e Encounter Details Date Type Department Care Team (Latest Contact Info) Description 06/26/2017 Scan HEALTH INFO SRVCS Scanned, Documents Social History Tobacco Use Types Packs/Day Years Used Date Smoking Tobacco: Never Assessed Sex and Gender Information Value Date Recorded Sex Assigned at Not on file Legal Sex Male 9:58 PM SQL DATABASE ADMINISTRATOR Gender Identity Not on file Sexual Orientation Not on file documented as of this encounter Plan of Treatment Upcoming Encounters Date Type Department Care Team (Late st Contact Info) Description 01/27/2025 7:00 AM CDT Office Visit [facility] Medical Group Family & Internal Medicine - [place] [address] [place] [address] [place] [address] [place] [address] 10/22/2025 9:15 AM SQL DATABASE ADMINISTRATOR Office Visit [facility]-[address] [address] Mily Gan MD [place] [address] [place] [address] documented as of this encounter Visit Diagnoses Not on filedocumented in this encounter
--- OUTSIDE RECORDS SUMMARY | 2024-11-02 09:21 | XMS_ITS | Encounter Summary ---
Author Organization [facility] Address [address] [place] [address]. [place], [place] [address] [place] [address] Care Team Providers Care Land Department Head Name Role Phone Lorie Chan MD Primary Care Provider [phone] Moraima Toledo RN Unavailable [phone] Moraima Toledo RN Unavailable [phone] Candis Bee NP Primary Care Provider [phone] Ilir [place] Primary Care Provider [phone] Encounter Details Date Type Department Care Team (Late st Contact Info) Description 04/13/[address] [facility] Conversion [address] [place], [place] [address] , Generic Conversion, Social History Tobacco Use Types Packs/Day Years Used Date Smoking Tobacco: Never Assessed Sex and Gender Information Value Date Recorded Sex Assigned at Not on file Legal Sex Male 9:58 PM CLARK DRIVER Gender Identity Not on file Sexual Orientation Not on file documented as of this encounter Plan of Treatment Upcoming Encounters Date Type Department Care Team (Late st Contact Info) Description 01/27/2025 7:00 AM CDT Office Visit [facility] Medical Group Family & Internal Medicine [address] [address] Ilir Nelson PA [address] [place] [address] 10/22/2025 9:15 AM CLARK DRIVER Office Visit [facility]-[address] [address] Mily Gan MD [facility] [address] [place], [place] [address] documented as of this encounter Visit Diagnoses Not on filedocumented in this encounter Additional Health Concerns Infection Onset Date Last Indicated Resolved Time COVID-19 Rule Out 03/07/2021 03/07/2021 03/08/2021 2:56 PM CDT documented as of this encounter Care Teams Land Department Head Relationship Specialty Start Date End Date Lorie Chan MD PCP - General INTERNAL MEDICINE 01/15/20 02/09/23 [place] [address] [facility], [address] [place] [address] PCP - General Nurse Practitioner Family 02/10/23 01/05/24 [place] [address] [place] [address] PCP - General Physician Personnel Arbitrator Medical 01/06/24 Moraima Toledo, RN [address] [place] [address] Bilingual Office Assistant (Ambulatory) REGISTERED NURSE 03/19/21 03/30/21 Moraima Toledo RN [address] [place] [address] Bilingual Office Assistant (Ambulatory) REGISTERED NURSE 09/23/21 10/18/21 documented as of this encounter
--- OUTSIDE RECORDS SUMMARY | 2024-11-02 09:21 | XMS_ITS | Encounter Summary ---
Author Organization [facility] Address [address] [place] [address]. [place], [place] [address] [place] [address] Care Team Providers Care Set Designer Name Role Phone Unavailable Primary Care Provider Unavailabl e Encounter Details Date Type Department Care Team (Latest Contact Info) Description 10/19/2016 Scan HEALTH INFO SRVCS Scanned, Documents Social History Tobacco Use Types Packs/Day Years Used Date Smoking Tobacco: Never Assessed Sex and Gender Information Value Date Recorded Sex Assigned at Not on file Legal Sex Male 9:58 PM HEALTH OUTREACH WORKER Gender Identity Not on file Sexual Orientation Not on file documented as of this encounter Plan of Treatment Upcoming Encounters Date Type Department Care Team (Late st Contact Info) Description 01/27/2025 7:00 AM CDT Office Visit [facility] Family & Internal Medicine - [place] [address] [place] [phone] [place] [address] [place] [address] 10/22/2025 9:15 AM HEALTH OUTREACH WORKER Office Visit [facility]-[address] [phone] Mily Gan MD [address] [place] [address] documented as of this encounter Visit Diagnoses Not on filedocumented in this encounter
--- OUTSIDE RECORDS SUMMARY | 2024-11-02 09:21 | XMS_ITS | Encounter Summary ---
Author Organization [facility] Address [address] [place] [address]. [place], [place] [address] [place] [address] Care Team Providers Care Theatrical Scenic Designer Name Role Phone Unavailable Primary Care Provider Unavailabl e Encounter Details Date Type Department Care Team (Late st Contact Info) Description 12/26/[address] [facility] [address] [place], [place] [address] Ria Joiner MD [address] [address] Social History Tobacco Use Types Packs/Day Years Used Date Smoking Tobacco: Never Assessed Sex and Gender Information Value Date Recorded Sex Assigned at Not on file Legal Sex Male 9:58 PM DOOR FRAME ASSEMBLER MACHINE Gender Identity Not on file Sexual Orientation Not on file documented as of this encounter Plan of Treatment Upcoming Encounters Date Type Department Care Team (Late Contact Info) Description 01/27/2025 7:00 AM CDT Office Visit [facility] Medical Group Family & Internal Medicine [address] [phone] Ilir Nelson PA [address] [place] [address] 10/22/2025 9:15 AM DOOR FRAME ASSEMBLER MACHINE Office Visit [facility] [address] [phone] Mily Gan MD [address] [place] [address] documented as of this encounter Visit Diagnoses Diagnosis Primary osteoarthritis of left knee Primary localized osteoarthrosis, lower leg documented in this encounter
--- OUTSIDE RECORDS SUMMARY | 2024-11-02 09:21 | XMS_ITS | Encounter Summary ---
Author Organization [facility] Address [address] [place] [address]. [place] [address] [place] [address] Care Team Providers Care Set Up / Operator Name Role Phone Unavailable Primary Care [...] on file Legal Sex Male 9:58 PM PAINTER AND BODY WORK Gender Identity Not on file Sexual Orientation Not on file documented as of this encounter Plan of Treatment Upcoming Encounters Date Type Department Care Team (Late st Contact Info) Description 01/27/2025 7:00 AM CDT Office Visit [facility] Medical Group Family & Internal Medicine - [place] [address] [place] [phone] [place] [address] [place], [place] [phone] 10/22/2025 9:15 AM PAINTER AND BODY WORK Office Visit [facility]-[address] [phone] Mily Gan MD [address] [place] [address] documented as of this encounter Procedures Procedure [...] Edited Result - Final Performing Organization Address [facility] Co de Phone Number [address] [address] * OUTSIDE LAB (02/15/2019) URIC ACID 6.3 4.0 - 8.0 mg/dL [facility] 02/15/2019 us Documents Scanned SCANNING Edited Result - Final Performing Organization Address [facility] Co de Phone Number [address] [address] * OUTSIDE LAB (02/15/2019) TSH 1.14 0.40 - 4.50 [facility] 02/15/2019 us Documents Scanned SCANNING Edited Result - Final Performing Organization Address [facility]/ZIP Co de Phone Number [address] [address] * OUTSIDE LAB (02/15/2019) PSA 0.6 <4.0 ng/mL [facility] 02/15/2019 us Documents Scanned SCANNING Edited Result - Final Performing Organization Address [facility]/ZIP Co de Phone Number [facility] [address] [address] * OUTSIDE LAB (02/15/2019) 02/15/2019 us Documents Scanned SCANNING Edited Result - Final Performing Organization Address [facility]/ZIP Co de Phone Number [address] [address] * OUTSIDE LAB (02/15/2019) 02/15/2019 us Documents Scanned SCANNING Edited Result - Final Performing Organization Address [facility]/ZIP Co de Phone Number [facility] [address] * OUTSIDE LAB (02/15/2019) 02/15/2019 us Documents Scanned SCANNING Edited Result - Final Performing Organization Address [facility] Co de Phone Number [address] [address] documented in this encounter Visit Diagnoses Not on filedocumented in this encounter
--- OUTSIDE RECORDS SUMMARY | 2024-11-02 09:21 | XMS_ITS | Encounter Summary ---
Author Organization [facility] Address [address] [place] [address]. [place], [place] [address] [place] [address] Care Team Providers Care Marine Propulsion Technician Name Role Phone Unavailable Primary Care Provider Unavailabl e Encounter Details Date Type Department Care Team (Latest Contact Info) Description 06/03/2019 Scan HEALTH INFO SRVCS Scanned, Documents Social History Tobacco Use Types Packs/Day Years Used Date Smoking Tobacco: Never Assessed Sex and Gender Information Value Date Recorded Sex Assigned at Not on file Legal Sex Male 9:58 PM PERSONALIZED LIVING MANAGER Gender Identity Not on file Sexual Orientation Not on file documented as of this encounter Plan of Treatment Upcoming Encounters Date Type Department Care Team (Late st Contact Info) Description 01/27/2025 7:00 AM CDT Office Visit [facility] Medical Group Family & Internal Medicine - [place] [address] [place] [phone] Ilir Nelson [place] [address] [place] [address] 10/22/2025 9:15 AM PERSONALIZED LIVING MANAGER Office Visit [facility]-[address] [phone] Mily Gan MD [address] [place] [address] documented as of this encounter Visit Diagnoses Not on filedocumented in this encounter
--- OUTSIDE RECORDS SUMMARY | 2024-11-02 09:21 | XMS_ITS | Encounter Summary ---
Author Organization [facility] Address [address] [place] [address]. [place], [place] [address] [place] [address] Care Team Providers Care Investment Advisor Name Role Phone Unavailable Primary Care Provider Unavailabl e Encounter Details Date Type Department Care Team (Latest Contact Info) Description 08/29/2016 Scan HEALTH INFO SRVCS Scanned, Documents Social History Tobacco Use Types Packs/Day Years Used Date Smoking Tobacco: Never Assessed Sex and Gender Information Value Date Recorded Sex Assigned at Not on file Legal Sex Male 9:58 PM BIAS CUTTING MACHINE OPERATOR VERTICAL Gender Identity Not on file Sexual Orientation Not on file documented as of this encounter Plan of Treatment Upcoming Encounters Date Type Department Care Team (Late st Contact Info) Description 01/27/2025 7:00 AM CDT Office Visit [facility] Medical Group Family & Internal Medicine - [place] [address] [place] [phone] [place] [address] [place] [address] 10/22/2025 9:15 AM BIAS CUTTING MACHINE OPERATOR VERTICAL Office Visit [facility]-[address] [phone] Mily Gan MD [address] [place] [address] documented as of this encounter Visit Diagnoses Not on filedocumented in this encounter
--- OUTSIDE RECORDS SUMMARY | 2024-11-02 09:21 | XMS_ITS | Encounter Summary ---
Author Organization [facility] Address [address] [place] [address]. [place], [place] [address] [place] [address] Care Team Providers Care Spud Sorter Name Role Phone Unavailable Primary Care Provider Unavailabl e Encounter Details Date Type Department Care Team (Latest Contact Info) Description 10/14/2013 Scan HEALTH INFO SRVCS Scanned, Documents Social History Tobacco Use Types Packs/Day Years Used Date Smoking Tobacco: Never Assessed Sex and Gender Information Value Date Recorded Sex Assigned at Not on file Legal Sex Male 9:58 PM COUPON AND BOND COLLECTION CLERK Gender Identity Not on file Sexual Orientation Not on file documented as of this encounter Plan of Treatment Upcoming Encounters Date Type Department Care Team (Late st Contact Info) Description 01/27/2025 7:00 AM CDT Office Visit [facility] Medical Group Family & Internal Medicine - [place] [address] [place] [phone] Ilir Nelson [place] [address] [place] [address] 10/22/2025 9:15 AM COUPON AND BOND COLLECTION CLERK Office Visit [facility]-[address] [phone] Mily Gan MD [address] [place] [address] documented as of this encounter Visit Diagnoses Not on filedocumented in this encounter
--- OUTSIDE RECORDS SUMMARY | 2024-11-02 09:21 | XMS_ITS | Encounter Summary ---
Author Organization [facility] Address [address] [place] [address]. [place], [place] [address] [place] [address] Care Team Providers Care Peer Tutor Name Role Phone Unavailable Primary Care Provider Unavailabl e Encounter Details Date Type Department Care Team (Latest Contact Info) Description 10/10/2018 Scan HEALTH INFO SRVCS Scanned, Documents Social History Tobacco Use Types Packs/Day Years Used Date Smoking Tobacco: Never Assessed Sex and Gender Information Value Date Recorded Sex Assigned at Not on file Legal Sex Male 9:58 PM FOUNTAIN SUPERVISOR Gender Identity Not on file Sexual Orientation Not on file documented as of this encounter Plan of Treatment Upcoming Encounters Date Type Department Care Team (Late st Contact Info) Description 01/27/2025 7:00 AM CDT Office Visit [facility] Medical Group Family & Internal Medicine - [place] [address] [place] [phone] Ilir Nelson [place] [address] [place] [address] 10/22/2025 9:15 AM FOUNTAIN SUPERVISOR Office Visit [facility]-[address] [phone] Mily Gan MD [address] [place] [address] documented as of this encounter Visit Diagnoses Not on filedocumented in this encounter
--- OUTSIDE RECORDS SUMMARY | 2024-11-02 09:21 | XMS_ITS | Encounter Summary ---
Author Organization [facility] Address [address] [place] [address]. [place], [place] [address] [place] [address] Care Team Providers Care Sports Agent Name Role Phone Unavailable Primary Care Provider Unavailabl e Encounter Details Date Type Department Care Team (Latest Contact Info) Description 03/27/2019 Scan HEALTH INFO SRVCS Scanned, Documents Social History Tobacco Use Types Packs/Day Years Used Date Smoking Tobacco: Never Assessed Sex and Gender Information Value Date Recorded Sex Assigned at Not on file Legal Sex Male 9:58 PM STEAM TRAP WORKER Gender Identity Not on file Sexual Orientation Not on file documented as of this encounter Plan of Treatment Upcoming Encounters Date Type Department Care Team (Late st Contact Info) Description 01/27/2025 7:00 AM CDT Office Visit [facility] Medical Group Family & Internal Medicine - [place] [address] [place] [phone] Ilir Nelson [place] [address] [place] [address] 10/22/2025 9:15 AM STEAM TRAP WORKER Office Visit [facility]-[address] [phone] Mily Gan MD [address] [place] [address] documented as of this encounter Visit Diagnoses Not on filedocumented in this encounter
--- OUTSIDE RECORDS SUMMARY | 2024-11-02 09:21 | XMS_ITS | Encounter Summary ---
Author Organization [facility] Address [address] [place] [address]. [place], [place] [address] [place] [address] Care Team Providers Care Assistant Maintenance Manager Name Role Phone Unavailable Primary Care Provider Unavailabl e Encounter Details Date Type Department Care Team (Latest Contact Info) Description 09/21/2018 Scan HEALTH INFO SRVCS Scanned, Documents Social History Tobacco Use Types Packs/Day Years Used Date Smoking Tobacco: Never Assessed Sex and Gender Information Value Date Recorded Sex Assigned at Not on file Legal Sex Male 9:58 PM LABORATORY GENETICIST Gender Identity Not on file Sexual Orientation Not on file documented as of this encounter Plan of Treatment Upcoming Encounters Date Type Department Care Team (Late st Contact Info) Description 01/27/2025 7:00 AM CDT Office Visit [facility] Medical Group Family & Internal Medicine - [place] [address] [place] [phone] Ilir Nelson [place] [address] [place] [address] 10/22/2025 9:15 AM LABORATORY GENETICIST Office Visit [facility]-[address] [phone] Mily Gan MD [address] [place] [address] documented as of this encounter Visit Diagnoses Not on filedocumented in this encounter
--- OUTSIDE RECORDS SUMMARY | 2024-11-02 09:21 | XMS_ITS | Encounter Summary ---
Author Organization [facility] Address [address] [place] [address]. [place], [place] [address] [place] [address] Care Team Providers Care Loader M[place] Name Role Phone Unavailable Primary Care Provider Unavailabl e Encounter Details Date Type Department Care Team (Latest Contact Info) Description 09/09/2016 Scan HEALTH INFO SRVCS Scanned, Documents Social History Tobacco Use Types Packs/Day Years Used Date Smoking Tobacco: Never Assessed Sex and Gender Information Value Date Recorded Sex Assigned at Not on file Legal Sex Male 9:58 PM DIAGNOSTIC RADIOLOGIST Gender Identity Not on file Sexual Orientation Not on file documented as of this encounter Plan of Treatment Upcoming Encounters Date Type Department Care Team (Late st Contact Info) Description 01/27/2025 7:00 AM CDT Office Visit [facility] Family & Internal Medicine - [place] [address] [place] [phone] Ilir Nelson [place] [address] [place] [address] 10/22/2025 9:15 AM DIAGNOSTIC RADIOLOGIST Office Visit [facility]-[address] [phone] Mily Gan MD [address] [place] [address] documented as of this encounter Visit Diagnoses Not on filedocumented in this encounter
--- OUTSIDE RECORDS SUMMARY | 2024-11-02 09:21 | XMS_ITS | Encounter Summary ---
Author Organization [facility] Address [address] [place] [address]. [place], [place] [address] [place] [address] Care Team Providers Care Florist Designer Name Role Phone Unavailable Primary Care Provider Unavailabl e Encounter Details Date Type Department Care Team (Latest Contact Info) Description 10/15/2014 Scan HEALTH INFO SRVCS Scanned, Documents Social History Tobacco Use Types Packs/Day Years Used Date Smoking Tobacco: Never Assessed Sex and Gender Information Value Date Recorded Sex Assigned at Not on file Legal Sex Male 9:58 PM DISBURSEMENT CLERK Gender Identity Not on file Sexual Orientation Not on file documented as of this encounter Plan of Treatment Upcoming Encounters Date Type Department Care Team (Late st Contact Info) Description 01/27/2025 7:00 AM CDT Office Visit [facility] Medical Group Family & Internal Medicine - [place] [address] [place] [phone] [place] [address] [place] [address] 10/22/2025 9:15 AM DISBURSEMENT CLERK Office Visit [facility]-[address] [phone] Mily Gan MD [address] [place] [address] documented as of this encounter Visit Diagnoses Not on filedocumented in this encounter
--- OUTSIDE RECORDS SUMMARY | 2024-11-02 09:21 | XMS_ITS | Encounter Summary ---
Author Organization [facility] Address [address] [place] [address]. [place], [place] [address] [place] [address] Care Team Providers Care Marketing Sales Representative Name Role Phone Unavailable Primary Care Provider Unavailabl e Encounter Details Date Type Department Care Team (Latest Contact Info) Description 10/16/2015 Scan HEALTH INFO SRVCS Scanned, Documents Social History Tobacco Use Types Packs/Day Years Used Date Smoking Tobacco: Never Assessed Sex and Gender Information Value Date Recorded Sex Assigned at Not on file Legal Sex Male 9:58 PM CHEF ASSISTANT Gender Identity Not on file Sexual Orientation Not on file documented as of this encounter Plan of Treatment Upcoming Encounters Date Type Department Care Team (Late st Contact Info) Description 01/27/2025 7:00 AM CDT Office Visit [facility] Medical Group Family & Internal Medicine - [place] [address] [place] [phone] [place] Nelson [place] [address] [place] [address] 10/22/2025 9:15 AM CHEF ASSISTANT Office Visit [facility]-[address] [phone] Mily Gan MD [address] [place] [address] documented as of this encounter Visit Diagnoses Not on filedocumented in this encounter
--- OUTSIDE RECORDS SUMMARY | 2024-11-02 09:21 | XMS_ITS | Encounter Summary ---
Author Organization [facility] Address [address] [place] [address]. [place], [place] [address] [place] [address] Care Team Providers Care Labor Crew Supervisor Name Role Phone Unavailable Primary Care Provider Unavailabl e Encounter Details Date Type Department Care Team (Latest Contact Info) Description 12/03/2018 Scan HEALTH INFO SRVCS Scanned, Documents Social History Tobacco Use Types Packs/Day Years Used Date Smoking Tobacco: Never Assessed Sex and Gender Information Value Date Recorded Sex Assigned at Not on file Legal Sex Male 9:58 PM TUCKPOINTER Gender Identity Not on file Sexual Orientation Not on file documented as of this encounter Plan of Treatment Upcoming Encounters Date Type Department Care Team (Late st Contact Info) Description 01/27/2025 7:00 AM CDT Office Visit [facility] Group Family & Internal Medicine - [place] [address] [place] [phone] Ilir Nelson [place] [address] [place] [address] 10/22/2025 9:15 AM TUCKPOINTER Office Visit [facility]-[address] [phone] Mily Gan MD [address] [place] [address] documented as of this encounter Visit Diagnoses Not on filedocumented in this encounter
--- OUTSIDE RECORDS SUMMARY | 2024-11-02 09:21 | XMS_ITS | Encounter Summary ---
Author Organization [facility] Address [address] [place] [address]. [place], [place] [address] [place] [address] Care Team Providers Care Gallery Or Museum Attendant Name Role Phone Lorie Chan MD Primary Care Provider [phone] Moraima Toledo RN Unavailable [phone] Moraima Toledo RN Unavailable [phone] Candis Bee NP Primary Care Provider [phone] Ilir Nelson Primary Care Provider [phone] Reason for Visit * Reason Comments Sleep Study (SCAN) Encounter Details Date Type Department Care Team ([facility] Contact Info) Description 12/25/2014 Scan HEALTH INFO [...] Legal Sex Male 9:58 PM DIRECTOR OF KNOWLEDGE MANAGEMENT Gender Identity Not on file Sexual Orientation [...] or making decisions? No 10/02/2021 12:38 PM DIRECTOR OF KNOWLEDGE MANAGEMENT Annette Jorge RN Active documented in this encounter Plan of Treatment Upcoming Encounters Date Type Department Care Team (Late st Contact Info) Description 01/27/2025 7:00 AM CDT Office Visit [facility] Family & Internal Medicine [facility] [address] [place] [phone] [place] [address] [place] [address] 10/22/2025 9:15 AM DIRECTOR OF KNOWLEDGE MANAGEMENT Office Visit [facility]-[address] [phone] Mily Gan MD [address] [address] documented as of this encounter [...] documented as of this encounter Care Teams Gallery Or Museum Attendant Relationship Specialty Start Date End Date Lorie Chan MD PCP - General INTERNAL MEDICINE 01/15/20 02/09/23 [place] [address] [facility] [address] [address] [place], [place] [id number] PCP - General Nurse Practitioner [facility] 02/10/23 01/05/24 [place] [address] [address] [place], [place] [id number] PCP - General Physician Agricultural Chemist Medical 01/06/24 Moraima Toledo, RN [address] [place] [address] Replenishment Buyer (Ambulatory) REGISTERED NURSE 03/19/21 03/30/21 Moraima Toledo RN [address] [place] [address] Replenishment Buyer (Ambulatory) REGISTERED NURSE 09/23/21 10/18/21 documented as of this encounter
--- OUTSIDE RECORDS SUMMARY | 2024-11-02 09:21 | XMS_ITS | Encounter Summary ---
Author Organization [facility] Address [address] [place] [address]. [place], [place] [address] [place] [address] Care Team Providers Care Cord Cutter Name Role Phone Unavailable Primary Care Provider Unavailabl e Encounter Details Date Type Department Care Team (Latest Contact Info) Description 04/15/2013 Scan HEALTH INFO SRVCS Scanned, Documents Social History Tobacco Use Types Packs/Day Years Used Date Smoking Tobacco: Never Assessed Sex and Gender Information Value Date Recorded Sex Assigned at Not on file Legal Sex Male 9:58 PM HEAVY DUTY MECHANIC FARM EQUIPMENT Gender Identity Not on file Sexual Orientation Not on file documented as of this encounter Plan of Treatment Upcoming Encounters Date Type Department Care Team (Late st Contact Info) Description 01/27/2025 7:00 AM CDT Office Visit [facility] Group Family & Internal Medicine - [place] [address] [place] [phone] Ilir Nelson [place] [address] [place] [address] 10/22/2025 9:15 AM HEAVY DUTY MECHANIC FARM EQUIPMENT Office Visit [facility]-[address] [phone] Mily Gan MD [address] [place] [address] documented as of this encounter Visit Diagnoses Not on filedocumented in this encounter
--- OUTSIDE RECORDS SUMMARY | 2024-11-02 09:44 | XMS_ITS | Encounter Summary ---
Author Organization [facility] Healthcare Address [facility] [place] [address] Care Team Providers Care Rn International Name Role Phone Lorie Chan MD Primary Care Provider [phone] Encounter Details Date Type Department Care Team (Latest Contact Info) Description 01/05/2023 11:49 AM INTERNAL AUDIT SENIOR MANAGER - 01/05/2023 11:59 PM INTERNAL AUDIT SENIOR MANAGER Hospital Encounter [facility] [address] [place] [id number] Discharge Disposition: Discharge to home or self care Social History Tobacco Use Types Packs/Day Years Used Date Smoking Tobacco: Never Assessed Sex and Gender Information Value Date Recorded Sex Assigned at Not on file Legal Sex Male 9:53 AM INTERNAL AUDIT SENIOR MANAGER Gender Identity Male 12/10/2022 9:30 AM INTERNAL AUDIT SENIOR MANAGER Sexual Orientation Straight 12/10/2022 9: 30 AM INTERNAL AUDIT SENIOR MANAGER documented as of this encounter Medications [...] OF OUTSIDE FILMS Routine 01/05/2023 11:49 AM INTERNAL AUDIT SENIOR MANAGER Diagnosis unknown documented in this encounter Results * XR Outside Reference (01/05/2023 11:49 AM INTERNAL AUDIT SENIOR MANAGER) Impressions [facility] - 01/05/2023 11:49 AM INTERNAL AUDIT SENIOR MANAGER These images are for Reference purposes only and have not been reviewed by [facility] Radiology. ??There will be no report generated by a [facility] Radiologist. Narrative [facility] - 01/05/2023 11:49 AM INTERNAL AUDIT SENIOR MANAGER EXAMINATION: ??Images For Reference Purposes Only us Burak Mendez MD IMG XR PROCEDURES Fin al Result [facility] documented in this encounter Visit Diagnoses Not on filedocumented in this encounter Care Teams Rn International Relationship Specialty [place] [id number] [address] [address] PCP - General Internal Medicine 12/05/22 documented as of this encounter
--- OUTSIDE RECORDS SUMMARY | 2024-11-02 09:44 | XMS_ITS | Encounter Summary ---
Author Organization [facility] Address [address] [place] [address] Phone Care Team Providers Care Leveler Name Role Phone Lorie Chan MD Primary Care Provider [phone] Reason for Referral * Procedure (Routine) - Closed Specialty Diagnoses / Procedures Referred By Shelby jama Referred To Contact Diagnoses Rotator cuff tendinitis, left Procedures Large Joint Injection: L subacromial bursa Burak Mendez MD [address] [facility] [place] [address] Phone: tel: fax: [facility] (All Locations) Referral ID Status Reason Start Date Expiration Date Visits Re quested Visits Authorized [id number] Closed 01/05/2023 02/04/2024 1 1 CRANE DRIVER * Diagnostic Imaging (Routine) - Closed Specialty Diagnoses / Procedures Referred By Shelby jama Referred To Contact Diagnoses Pain in joint of left shoulder Procedures XR Shoulder Left 2 or More Views Burak Mendez MD [address] [facility] [address] [place] [address] Phone: tel: fax: [facility] [address] [place] [address] Referral ID Status Reason Start Date Expiration Date Visits Re quested Visits Authorized [id number] Closed 12/30/2022 01/29/2024 1 1 CRANE DRIVER Reason for Visit * Reason Comments Pain Encounter Details Date Type Department Care Team (Late st Contact Info) Description 01/05/2023 10:00 AM AUTO CRANE DRIVER Office Visit [facility] Orthopaedic Surgery [address] [facility] 12th [place] [address] [place] [address] Burak Mendez MD [address] [facility] [address] [place] [address] Rotator cuff tendinitis, left (Primary Dx) Social History Tobacco Use Types Packs/Day Years Used Date Smoking Tobacco: Never Assessed Sex and Gender Information Value Date Recorded Sex Assigned at Not on file Legal Sex Male 9:53 AM AUTO CRANE DRIVER Gender Identity Male 12/10/2022 9:30 AM AUTO CRANE DRIVER Sexual Orientation Straight 12/10/2022 9: 30 AM AUTO CRANE DRIVER documented as of this encounter Progress Notes [...] day smoker 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 Chirag Monaco dictating using Fluency Direct. Anthropology And Archeology Instructor variances may occur. ATTENDING ADDENDUM The patient [...] any separately reportable services. Burak Mendez MD Professor Of Rhetoric of Orthopedic Surgery Shoulder and Elbow Service [facility] Orthopedics [facility] Dr. Burak Mendez dictating using Fluency Direct. Anthropology And Archeology Instructor variances may occur. CRANE DRIVER documented in this encounter Plan of Treatment Not on file documented as of this encounter Procedures Procedure Name Priority Date/Time Associated Diagnosis Comments CA ARTHROCENTESIS ASPIR&/INJ MAJOR JT/BURSA W/O US Routine 01/05/2023 10:00 AM AUTO CRANE DRIVER Rotator cuff tendinitis, left documented in this encounter Results * XR Shoulder Left 2 or More Views (01/05/2023 10:24 AM AUTO CRANE DRIVER) Anatomical Region Laterality Modality Upper Extremities, Shoulder Left Comp uted Radiography 01/05/2023 11:1 8 AM AUTO CRANE DRIVER Impressions 01/05/2023 11:22 AM AUTO CRANE DRIVER 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 Dictated by: Leonard Mehta M.D. The radiology attending physician has personally reviewed this study, and had reviewed and/or edited this written report and agrees with it. Electronically signed by: Og Villagran MD Narrative 01/05/2023 11:22 AM AUTO CRANE DRIVER EXAMINATION: XR SHOULDER LEFT 2 OR MORE [...] IMG XR PROCEDURES Fin al Result * CA ARTHROCENTESIS ASPIR&/INJ MAJOR JT/BURSA W/O US (01/05/2023 10:00 AM AUTO CRANE DRIVER) Narrative Burak Mendez MD - 01/05/2023 10:00 AM AUTO CRANE DRIVER Burak Mendez MD ? 01/05/2023 ??5:10 PM [...] cuff tendinitis, left Given 01/05/2023 5:10 PM AUTO CRANE DRIVER 3 mL Left Shoulder lidocaine (XYLOCAINE) 10 mg/mL (1 %) injection 3 mL 3 mL, One-Time Injection, Starting on Yamilex 01/05/23 at 1710, For 1 dose, Indications: Administration of Local AnesthesiaIndications:Adminis tration of Local Anesthesia Given 01/05/2023 5:10 PM AUTO CRANE DRIVER 3 mL Left Shoulder triamcinolone (KENALOG) 40 mg/mL injection 40 mg 40 mg, intra-articular, One-Time Injection, Starting on Yamilex 01/05/23 at 1710, For 1 doseIndications:Rotator cuff tendinitis, left Given 01/05/2023 5:10 PM AUTO CRANE DRIVER 40 mg Left Shoulder documented in this [...] 12/08/2022 added in this encounter Care Teams Leveler Relationship Specialty [place] [id number] [address] PCP - General Internal Medicine 12/05/22 documented as of this encounter
--- OUTSIDE RECORDS SUMMARY | 2024-11-02 09:44 | XMS_ITS | Referral Summary ---
Author Organization [facility] Address [address] [place] [address] Care Team Providers Care Cash Grain Farmer Name Role Phone Lorie Chan MD Primary Care Provider [phone] Allergies Active Allergy Reactions Criticality Noted Date [...] Date Diagnosed Date Status post Neel procedure ([facility]) 021 Perforated diverticulum 03/18/2021 Pharyngoesophageal dysphagia 02/25/2021 Overview (01/05/2023): Added automatically from request for surgery [id number] Cervical stenosis of spinal canal 10/02/2018 RANDY on CPAP 10/16/2015 Hyperlipidemia 04/15/2013 Social History Tobacco Use Types Packs/Day Years Used Date Smoking Tobacco: Never Assessed Personal Safety Answer Date Recorded Getting School Help Needed Not on file 11/12 Sex and Gender Information Value Date Recorded Sex Assigned at Not on file Legal Sex Male 9:53 AM FIELD REPRESENTATIVES DIRECTOR Gender Identity Male 12/10/2022 9:30 AM FIELD REPRESENTATIVES DIRECTOR Sexual Orientation Straight 12/10/2022 9: 30 AM FIELD REPRESENTATIVES DIRECTOR Plan of Treatment Not on file Insurance [employer] Care Teams Cash Grain Farmer Relationship Specialty [place] [address] [address] PCP - General Internal Medicine 12/05/22
--- OUTSIDE RECORDS SUMMARY | 2024-11-02 09:44 | XMS_ITS | Clinical Summary ---
Author Organization [facility] Address [address] [place] [address] Care Team Providers Care Labeling Specialist Name Role Phone Lorie Chan MD Primary Care Provider [phone] Allergies Active Allergy Reactions Criticality Noted Date [...] Date Diagnosed Date Status post Neel procedure ([facility]) 021 Perforated diverticulum 03/18/2021 Pharyngoesophageal dysphagia 02/25/2021 Overview (01/05/2023): Added automatically from request for surgery [id number] Cervical stenosis of spinal canal 10/02/2018 RANDY on CPAP 10/16/2015 Hyperlipidemia 04/15/2013 Social History Tobacco Use Types Packs/Day Years Used Date Smoking Tobacco: Never Assessed Personal Safety Answer Date Recorded Getting School Help Needed Not on file 11/12 Sex and Gender Information Value Date Recorded Sex Assigned at Not on file Legal Sex Male 9:53 AM ADULT LIVE IN CAREGIVER Gender Identity Male 12/10/2022 9:30 AM ADULT LIVE IN CAREGIVER Sexual Orientation Straight 12/10/2022 9: 30 AM ADULT LIVE IN CAREGIVER Plan of Treatment Health Maintenance Due Date [...] history exists Insurance [employer] [place] [address] Care Teams Labeling Specialist Relationship Specialty [place] [id number] [address] PCP - General Internal Medicine 12/05/22
--- OUTSIDE RECORDS SUMMARY | 2024-11-02 09:44 | XMS_ITS | Encounter Summary ---
Author Organization [facility] Healthcare Address [address] [place] [address] Care Team Providers Care Kitchen Designer Name Role Phone Lorie Chan MD Primary Care Provider [phone] Reason for Referral * Diagnostic Imaging (Routine) - Closed Specialty Diagnoses / Procedures Referred By Shelby t Referred To Contact Diagnoses Pain in joint of left shoulder Procedures XR Shoulder Left 2 or More Views Burak Mendez MD [address] [facility] [address] [place] [address] Phone: tel: fax: [address] [address] Referral ID Status Reason Start Date Expiration Date Visits Re quested Visits Authorized [id number] Closed 12/30/2022 01/29/2024 1 1 OON SANDER Reason for Visit * Diagnostic Imaging (Routine) - Closed Specialty Diagnoses / Procedures Referred By Contac t Referred To Contact Diagnoses Pain in joint of left shoulder Procedures XR Shoulder Left 2 or More Views Burak Mendez MD [address] [place] [address] Phone: tel: fax: [address] [address] Referral ID Status Reason Start Date Expiration Date Visits Re quested Visits Authorized [id number] Closed 12/30/2022 01/29/2024 1 1 Encounter Details Date Type Department Care Team (Latest Contact Info) Description 01/05/2023 9:45 AM BALLOON SANDER - 01/05/2023 11:48 AM BALLOON SANDER Hospital Encounter [facility] [address] [place] [address] Pain in joint of left shoulder Discharge Disposition: Discharge to home or self care Social History Tobacco Use Types Packs/Day Years Used Date Smoking Tobacco: Never Assessed Sex and Gender Information Value Date Recorded Sex Assigned at Not on file Legal Sex Male 9:53 AM BALLOON SANDER Gender Identity Male 12/10/2022 9:30 AM BALLOON SANDER Sexual Orientation Straight 12/10/2022 9: 30 AM BALLOON SANDER documented as of this encounter Medications at [...] Read Routine (OP Routine) 01/05/2023 10:24 AM BALLOON SANDER Pain in joint of left shoulder documented in this encounter Results * XR Shoulder Left 2 or More Views (01/05/2023 10:24 AM BALLOON SANDER) Anatomical Region Laterality Modality Upper Extremities, Shoulder Left Comp uted Radiography 01/05/2023 11:1 8 AM BALLOON SANDER Impressions 01/05/2023 11:22 AM BALLOON SANDER 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 Dictated by: Leonard Metha M.D. The radiology attending physician has personally reviewed this study, and had reviewed and/or edited this written report and agrees with it. Electronically signed by: Og Villagran MD Narrative 01/05/2023 11:22 AM BALLOON SANDER EXAMINATION: XR SHOULDER LEFT 2 OR MORE [...] shoulder documented in this encounter Care Teams Kitchen Designer Relationship Specialty [place] [address] [address] PCP - General Internal Medicine 12/05/22 documented as of this encounter
== END 2024-10-26 09:58 | disposition home or self-care (01) ==
PROVIDERS: Emergency Provider Nurse Practitioner Family
DX: U07.1 COVID-19 (principal); E78.5 Hyperlipidemia, unspecified; F17.210 Nicotine dependence, cigarettes, uncomplicated; Z79.899 Other long term (current) drug therapy
CPT/HCPCS: 87081; 87426; 87804; 87880; 99203; G0463